=== PATIENT | female | born 1950 | race Caucasian/White ===

== ENCOUNTER 2022-08-26 07:29 | Outpatient (OUT) | payer MEDICARE, SELFPAY ==
--- NOTE | 2022-08-26 07:36 | MM_ITS ---
Patient: JUSTIN COLLINS Exam Date: 08/26/2022 : 1950 Gender:F Ordering : DR Jeremiah Arvizu . Admission #: [id number] Family : Order #: [id number] CLICK HERE TO VIEW EXAM RADIOLOGY REPORT PROCEDURE: MM TOMOSYNTHESIS SCREENING BI COMPARISON: MG MAMM SCREEN 3D SHANTE CAD, 05/19/2021. MG MAMM LT DIAG FU, 03/28/2020. MG MAMM SHANTE SCRN W CAD DIG, 06/12/2015. INDICATIONS: Screening Calculator Name NCI Breast Cancer Risk Assessment Tool 5 Year Breast Cancer Risk 1.80% Lifetime Breast Cancer Risk 5.10% Personal Breast Cancer No Personal Ovarian Cancer No Treatments None Family Cancers Mother with rectal cancer at age 85; Daughter with pancreatic/liver cancer at age 34. LOCATION: [facility] BREAST COMPOSITION: Scattered areas fibroglandular density. FINDINGS: DIAGNOSTIC CATEGORY 1--NEGATIVE. RIGHT BREAST: No significant suspicious finding. No significant change has occurred. LEFT BREAST: No significant suspicious finding. No significant change has occurred. RECOMMENDATIONS: ROUTINE MAMMOGRAM AND CLINICAL EVALUATION IN 12 MONTHS. PLEASE NOTE: A NORMAL MAMMOGRAM DOES NOT EXCLUDE THE POSSIBILITY OF BREAST CANCER. A CLINICALLY SUSPICIOUS PALPABLE LUMP SHOULD BE BIOPSIED. Dictated by: Joe Moon M.D. on 08/26/2022 at 16:20 Approved by: Joe Moon M.D. on 08/26/2022 at 16:23
== END 2022-08-26 07:30 ==
LOC: MAMMO 07:30
PROVIDERS: PCP Family Medicine; Visit Provider Family Medicine
DX: Z12.31 Encounter for screening mammogram for malignant neoplasm of breast (principal); Z80.0 Family history of malignant neoplasm of digestive organs
CPT/HCPCS: 77063; 77067

== ENCOUNTER 2022-08-26 07:37 | Outpatient (OUT) | payer MEDICARE, SELFPAY ==
--- NOTE | 2022-08-26 07:44 | CT_ITS ---
The [address] [address] Patient Name: JUSTIN COLLINS MRN: [id number] date: 1950 Sex: F Assigned Patient Location: CT Current Patient Location: [facility] Accession/Order Number: [id number] Exam Date: 08/26/2022 07:54 Report Date: 08/26/2022 08:20 At the request of: AMANDA KELLOGG Procedure: CT chest wo con PROCEDURE: CT chest wo con DATE: 08/26/2022 6:54 AM CDT COMPARISONS: 02/23/2022 CLINICAL INDICATION: 72 years Female MULTIPLE PULMONARY NODULES R91.8 TECHNIQUE: Axial images were obtained. Coronal and sagittal reformations were created. Individualized dose optimization technique was used for the procedure performed. FINDINGS: The thoracic aorta shows no evidence of aneurysm.There is some mild scattered calcification in the wall of the thoracic aorta. The heart size is within normal limits. There is no significant pericardial effusion or pericardial thickening. There is no significant coronary calcification identified. There is no mediastinal masses or adenopathy. There is no axillary adenopathy. The lungs are essentially clear without evidence of nodule, mass, or infiltrate. There is no evidence of pleural effusion or pneumothorax. No significant abnormalities are identified of the visualized osseous structures. No significant abnormalities are identified of the visualized portion of the upper abdomen. IMPRESSION: CT of the chest shows no significant abnormalities. The previously noted collection of 2 to 3 mm nodules versus atypical infiltrate/pneumonia within the anterior lateral base of the right upper lobe have resolved in the interval the lungs are now clear. Electronically authenticated by: NELY KNAPP Date: 08/26/2022 08:20
== END 2022-08-26 07:38 ==
LOC: CT 07:38
PROVIDERS: PCP Family Medicine; Visit Provider Internal Medicine
DX: Z12.31 Encounter for screening mammogram for malignant neoplasm of breast (principal); Z80.0 Family history of malignant neoplasm of digestive organs; R91.8 Other nonspecific abnormal finding of lung field
CPT/HCPCS: 71250; 77063; 77067

== ENCOUNTER 2022-11-07 12:35 | Emergency (ER) | payer MEDICARE, SELFPAY ==
[2022-11-07 12:38] VITALS: BP 166/82; RESP 20; BMI 51.6
--- NOTE | 2022-11-07 12:52 | ED.SKABFB1 ---
HPI - Skin/Abscess/Foreign Bdy General Chief complaint: Skin/Abscess/Foreign Body Stated complaint: L LEG/CUT WIDE OPEN/BLEEDING Time Seen by Provider: 11/07/22 12:46 Source: patient Mode of arrival: walk-in Limitations: no limitations History of Present Illness HPI narrative: this patient's here with a complaint of injuring/laceration to her left lower leg. She has chronic venous insufficiency and profound edema both her legs. She was walking by a box at her home and it causes laceration. She had her last tetanus shot two years ago. She does not have a fever or increasing redness. The bleeding has stopped. She normally wears nasir wraps at home to help control the peripheral edema. She sometimes takes her water pills but not always when she is going to be out around because of frequency of urination. She does not any chest pain or shortness of breath. Related Data Allergies Allergy/AdvReac Type Severity Reaction Status Date / Time Penicillins Allergy Intermediate Verified 11/07/22 12:44 Exam Narrative Exam Narrative: very pleasant female here no distress vital signs are noted. She has no respiratory difficulty breathing. Problem focused examination to the lower extremities Both legs have 4+ chronic edema she said they're no worse than usual. There is no indication of active cellulitis. She does have a skin flap type of laceration does partial thickness over the distal one third of her lower leg on the left side. There is no subcutaneous bleeding. Actually there is no bleeding at all at this time. She has no neurovascular deterioration distal to this laceration. Constitutional Vital Signs, click to edit/add: Last Vital Signs Resp 11/07/22 12:38 BP 166/82 H 11/07/22 12:38 O2 Del Method Room Air 11/07/22 12:38 Course Vital Signs Vital signs: Vital Signs Respiratory Rate 20 11/07/22 12:38 Blood Pressure 166/82 H 11/07/22 12:38 Oxygen Delivery Method Room Air 11/07/22 12:38 Respiratory Rate 11/07/22 12:38 Blood Pressure 166/82 H 11/07/22 12:38 Oxygen Delivery Method Room Air 11/07/22 12:38 MDM - Skin/Abscess/Foreign Bdy MDM Narrative Medical decision making narrative: patient with 4+ chronic leg edema with a partial-thickness laceration in the left lower leg. We will cleanse the area with pHisoHex, apply surgical site dressing and Steri-Strips. She is encouraged to keep her legs elevated more which she's not been doing and continued use the Nasir wrap. She should have this wound evaluated next week to make sure there is no secondary infection that would be developing. I do not believe she'll benefit from for prophylactic antibiotic at this time Discharge Plan Discharge Chief Complaint: Skin/Abscess/Foreign Body Clinical Impression: Laceration of leg Patient Disposition: Home, Self-Care Time of Disposition Decision: 12:55 Additional Instructions: ttried to elevate legs more especially today. Have her doctor reevaluate the wound next week. Return for any signs of infection Stand Alone Forms: Portal Instructions Referrals: Jeremiah Arvizu MD [Primary Care Provider] - 1 week
== END 2022-11-07 13:15 | disposition home or self-care (01) ==
PROVIDERS: Emergency Provider Emergency Medicine Emergency Medical Services; PCP Family Medicine
DX: S81.812A Laceration without foreign body, left lower leg, initial encounter (principal); I87.2 Venous insufficiency (chronic) (peripheral); W22.8XXA Striking against or struck by other objects, initial encounter
CPT/HCPCS: 99282

== ENCOUNTER 2022-11-24 10:31 | Outpatient (OUT) | payer MEDICARE, SELFPAY ==
[2022-11-24 11:02] LABS: Basophils Percent Auto 0.5 % (0.2-2.0); Eosinophils Absolute Auto 0.1 10^3/uL (0.0-0.7); Eosinophils Percent Auto 0.8 % (0.9-7.0); Hematocrit 37.9 % (36.0-48.0); Hemoglobin 11.9 g/dL (12.0-16.0); Immature Granulocytes Abs Auto 0.03 10^3/uL (0.00-0.03); Immature Granulocytes Pct Auto 0.5 % (0.0-0.5); Lymphocytes Absolute Auto 1.3 10^3/uL (1.2-3.8); Lymphocytes Percent Auto 19.3 % (20.5-60.0); Mean Corpuscular HGB Conc 31.4 g/dL (29.9-35.2); Mean Corpuscular Hemoglobin 29.5 pg (26.7-34.0); Mean Platelet Volume 9.6 fL (9.5-13.5); Monocytes Absolute Auto 0.6 10^3/uL (0.3-0.8); Monocytes Percent Auto 9.1 % (1.7-12.0); Neutrophils Absolute Auto 4.5 10^3/uL (1.4-6.5); Neutrophils Percent Auto 69.8 % (43.0-75.0); Platelet Count 216 10^3/uL (150-450); Red Blood Count 4.03 10^6/uL (4.20-5.40); Red Cell Distribution Width 15.4 % (11.0-15.0); White Blood Count 6.5 10^3/uL (4.0-11.0)
[2022-11-24 11:10] LABS: INR 1.02; Prothrombin Time 10.8 sec (9.0-11.6)
[2022-11-24 11:37] LABS: Anion Gap 9.5; BUN Creatinine Ratio 23.2; Calcium 9.3 mg/dL (8.5-10.1); Carbon Dioxide 26.6 mmol/L (21.0-32.0); Chloride 108 mmol/L (98-107); Estimated GFR (African America 30 (>=60); Estimated GFR (Non-African Ame 25 (>=60); Glucose 95 mg/dL (74-106); Potassium 5.1 mmol/L (3.5-5.1); Sodium 139 mmol/L (136-145)
== END 2022-11-24 10:32 | disposition home or self-care (01) ==
PROVIDERS: PCP Family Medicine
DX: I47.1 Supraventricular tachycardia (principal); M48.062 Spinal stenosis, lumbar region with neurogenic claudication
CPT/HCPCS: 36415; 80048; 85025; 85610; 87081

== ENCOUNTER 2022-12-30 12:57 | Outpatient (RCR) | payer MEDICARE, SELFPAY | END 2022-12-31 12:01 | disposition home or self-care (01) | LOC: PT 12:57 | PROVIDERS: PCP Family Medicine | DX: M48.062 Spinal stenosis, lumbar region with neurogenic claudication (principal) ==

== ENCOUNTER 2023-01-06 13:12 | Outpatient (OUT) | payer MEDICARE, SELFPAY ==
[2023-01-06 13:31] LABS: Basophils Percent Auto 0.5 % (0.2-2.0); Eosinophils Absolute Auto 0.1 10^3/uL (0.0-0.7); Eosinophils Percent Auto 1.3 % (0.9-7.0); Hematocrit 38.5 % (36.0-48.0); Hemoglobin 11.7 g/dL (12.0-16.0); Immature Granulocytes Abs Auto 0.04 10^3/uL (0.00-0.03); Immature Granulocytes Pct Auto 0.5 % (0.0-0.5); Lymphocytes Absolute Auto 1.3 10^3/uL (1.2-3.8); Lymphocytes Percent Auto 15.8 % (20.5-60.0); Mean Corpuscular HGB Conc 30.4 g/dL (29.9-35.2); Mean Corpuscular Hemoglobin 28.7 pg (26.7-34.0); Mean Corpuscular Volume 94.6 fL (81.0-99.0); Mean Platelet Volume 9.6 fL (9.5-13.5); Monocytes Absolute Auto 0.7 10^3/uL (0.3-0.8); Neutrophils Percent Auto 72.9 % (43.0-75.0); Platelet Count 220 10^3/uL (150-450); Red Blood Count 4.07 10^6/uL (4.20-5.40); Red Cell Distribution Width 13.8 % (11.0-15.0); White Blood Count 8.2 10^3/uL (4.0-11.0)
[2023-01-06 14:24] LABS: Anion Gap 12.4; Calcium 8.5 mg/dL (8.5-10.1); Carbon Dioxide 25.9 mmol/L (21.0-32.0); Chloride 109 mmol/L (98-107); Estimated GFR (African America 28 (>=60); Estimated GFR (Non-African Ame 23 (>=60); Glucose 89 mg/dL (74-106); Potassium 5.3 mmol/L (3.5-5.1); Sodium 142 mmol/L (136-145)
== END 2023-01-06 13:13 | disposition home or self-care (01) ==
LOC: LAB 13:12
PROVIDERS: PCP Family Medicine
DX: I49.5 Sick sinus syndrome (principal); I12.9 Hypertensive chronic kidney disease with stage 1 through stage 4 chronic kidney disease, or unspecified chronic kidney disease; N18.32 Chronic kidney disease, stage 3b; R10.9 Unspecified abdominal pain; R19.4 Change in bowel habit; K52.9 Noninfective gastroenteritis and colitis, unspecified; Z80.0 Family history of malignant neoplasm of digestive organs; Z83.79 Family history of other diseases of the digestive system; R19.7 Diarrhea, unspecified
CPT/HCPCS: 36415; 80048; 82042; 82043; 82570; 83993; 84100; 84156; 84443; 85025; 87045; 87046; 87177; 87209; 87427; 87493

== ENCOUNTER 2023-01-06 13:15 | Outpatient (OUT) | payer MEDICARE, SELFPAY ==
[2023-01-06 13:30] LABS: Creatinine Urine Random 175.12 mg/dL (20.00-300.00); Microalbumin Urine Random 4.5 mg/dL (<=30.0); Protein Creatinine Ratio Urine 0.16; Total Protein Urine Random 28.8 mg/dL (<=11.9)
[2023-01-06 14:40] LABS: Albumin Level 3.2 g/dL (3.4-5.0); Phosphorus 3.8 mg/dL (2.6-4.7); Thyroid Stimulating Hormone 0.048 uIU/mL (0.358-3.740)
== END 2023-01-06 13:16 | disposition home or self-care (01) ==
LOC: LAB 13:15
PROVIDERS: PCP Family Medicine
DX: I12.9 Hypertensive chronic kidney disease with stage 1 through stage 4 chronic kidney disease, or unspecified chronic kidney disease (principal); N18.32 Chronic kidney disease, stage 3b
CPT/HCPCS: 36415; 82042; 82043; 82570; 84100; 84156; 84443

== ENCOUNTER 2023-01-06 13:56 | Outpatient (REF) | payer MEDICARE, SELFPAY ==
[2023-01-07 15:06] LABS: C. Difficile PCR NEGATIVE (NEGATIVE)
[2023-01-10 18:08] LABS: Calprotectin, Fecal 40 ug/g (0-120)
[2023-01-18 19:07] LABS: Ova + Parasite Exam Final report (.)
== END 2023-01-06 13:57 | disposition home or self-care (01) ==
LOC: LAB 13:56
PROVIDERS: PCP Family Medicine
DX: R10.9 Unspecified abdominal pain (principal); R19.4 Change in bowel habit; K52.9 Noninfective gastroenteritis and colitis, unspecified; Z80.0 Family history of malignant neoplasm of digestive organs; Z83.79 Family history of other diseases of the digestive system; R19.7 Diarrhea, unspecified
CPT/HCPCS: 83993; 87045; 87177; 87209; 87493

== ENCOUNTER 2023-01-13 10:54 | Outpatient (OUT) | payer MEDICARE, SELFPAY ==
--- NOTE | 2023-01-13 10:58 | XR_ITS ---
The [address] [address] Patient Name: JUSTIN COLLINS MRN: [id number] date: 1950 Sex: F Assigned Patient Location: RAD Current Patient Location: RAD Accession/Order Number: [id number] Exam Date: 01/13/2023 11:07 Report Date: 01/13/2023 11:22 At the request of: DEBBIE BHATIA Procedure: XR chest 2V PROCEDURE: XR chest 2V DATE: 01/13/2023 10:07 AM CDT COMPARISONS: CT chest 08/26/2022 CLINICAL INDICATION: 72 years Female Symptomatic Bradycardia R00.1 FINDINGS: The cardiomediastinal silhouette and pulmonary vasculature are within normal limits. The lungs are clear. There is no evidence of pleural effusion or pneumothorax. Electronic cardiac device is now in place. It overlies the left chest with wires extending to overlie the heart. There is evidence of some mild thoracic spondylosis stable from 08/26/2022. XR/XR chest 2V IMPRESSION: Stable chest. Electronically authenticated by: NELY KNAPP Date: 01/13/2023 11:22
== END 2023-01-13 10:55 | disposition home or self-care (01) ==
LOC: RAD 01-14 08:55
PROVIDERS: PCP Family Medicine; Visit Provider Family Medicine
DX: R00.1 Bradycardia, unspecified (principal)
CPT/HCPCS: 71046

== ENCOUNTER 2023-01-19 11:34 | Observation (INO) | payer MEDICARE, SELFPAY ==
[2023-01-19] VITALS (34 sets, daily range): BP systolic 113–159; BP diastolic 72–87; PULSE 63–81; RESP 10–41; TEMP 36.5–36.6; O2SAT 93–97; BMI 52.1; BMI 51.6
--- NOTE | 2023-01-19 12:23 | ECG_ITS ---
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
--- NOTE | 2023-01-19 12:43 | ED_ITS ---
HPI - Dizziness General Chief Complaint: Dizziness Stated Complaint: GENERAL WEAKNESS/DIZZINESS Time Seen by Provider: 01/19/23 12:43 Source: patient Mode of arrival: Wheelchair History of Present Illness HPI Narrative: the patient's here complaining of feeling a lightheadedness with dizziness and like she might faint. She got smarting had usual breakfast. She then took a shower and she was completed she felt like she might faint. Just one week ago she got a pacemaker for documented bradycardia arrhythmia. She does not any shortness of breath or chest discomfort. She did not fall. She did not have diplopia with dysarthria dysphagia. She did not notice any focal weakness or sensory symptoms. She did not have headache. She says normally she gets these spells she just lays down takes a nap and they go away today spell was much wors e. The daughter was with her and after the one spell today her blood pressure was one fourteen systolic. They did not check her pulse but while she's here in the Emergency Room her pacemaker is working fine. Related Data Home Medications Medication Instructions Recorded Confirmed bumetanide 1 mg tablet 1 mg PO DAILY 01/19/23 01/19/23 carvedilol 25 mg tablet 12.5 mg PO BID 01/19/23 01/19/23 hydralazine 100 mg tablet 100 mg PO TID 01/19/23 01/19/23 isosorbide mononitrate 30 mg 30 mg PO DAILY 01/19/23 01/19/23 tablet,extended release 24 hr levothyroxine 100 mcg tablet 100 mcg PO DAILY 01/19/23 01/19/23 lisinopril 10 mg tablet 10 mg PO DAILY 01/19/23 01/19/23 lovastatin 20 mg tablet 20 mg PO DAILY 01/19/23 01/19/23 Allergies Allergy/AdvReac Type Severity Reaction Status Date / Time Penicillins Allergy Intermediate Verified 01/19/23 11:43 [facility] Social History Smoking status: Former smoker Exam Narrative Exam Narrative: tthis patient is awake alert oriented ?3 pleasant in no distress. She is on a property assessment monitor shows a paced rhythm. She has no hypoxemia and her oxygen saturations are normal. Constitutional HEENT shows no missed trauma or injury. Pupils are equally reactive bilaterally there is no nystagmus. There is no jugular vein distention. Heart rate and rhythm are normal with no murmur. Lungs are clear with no wheezes rales or rhonchi. Abdomen is benign with no pain or discomfort. Extremities show 3+ peripheral edema left lower leg with mild erythema and some venous stasis and losing right leg has 2-3+ but is not erythematous. Peripheral pulses are present. Neurological shows no focal neurological deficits or symptomatology. Constitutional Vital Signs, click to edit/add: Last Vital Signs Temp 97.8 F 01/19/23 11:38 Pulse 79 01/19/23 13:40 Resp 15 01/19/23 13:40 BP 133/78 01/19/23 13:30 Pulse Ox 96 01/19/23 13:40 O2 Del Method Room Air 01/19/23 11:38 Course Vital Signs Vital signs: Vital Signs Temperature 97.8 F 01/19/23 11:38 Pulse Rate 78 01/19/23 11:38 Respiratory Rate 20 01/19/23 11:38 Blood Pressure 113/73 01/19/23 11:38 Pulse Oximetry 96 01/19/23 11:38 Oxygen Delivery Method Room Air 01/19/23 11:38 Temperature 97.8 F 01/19/23 11:38 Pulse Rate 79 01/19/23 13:40 Respiratory Rate 15 01/19/23 13:40 Blood Pressure 133/78 01/19/23 13:30 Pulse Oximetry 96 01/19/23 13:40 Oxygen Delivery Method Room Air 01/19/23 11:38 MDM - Dizziness MDM Narrative Medical decision making narrative: ppatient remained stable while in the Emergency Room but had a severely concerning near syncopal episode at home today. She says she's had similar spells but today was the worst. She did not have any arrhythmia while here in the Emergency Room. Here a 12-lead EKG shows pacemaker functioning is normal. She did not have any hypotension. Laboratory tests did not show any acute abnormalities. She's not been compliant with her stockings and she does have a lot of peripheral edema. I felt would be best to keep her on a property assessment monitor to see if there is any deterioration of her pacemaker function. She was discus sed with the hospitalist Lab Data Labs: Lab Results 01/19/23 Range/Units 13:17 WBC 8.2 (4.0-11.0) 10^3/uL RBC 3.96 L (4.20-5.40) 10^6/uL Hgb 11.5 L (12.0-16.0) g/dL Hct 38.0 (36.0-48.0) % MCV 96.0 (81.0-99.0) fL MCH 29.0 (26.7-34.0) pg MCHC 30.3 (29.9-35.2) g/dL RDW 13.9 (11.0-15.0) % Plt Count 200 (150-450) 10^3/uL MPV 9.8 (9.5-13.5) fL Neut % (Auto) 74.1 (43.0-75.0) % Lymph % (Auto) 14.1 L (20.5-60.0) % [place] % (Auto) 9.4 (1.7-12.0) % Eos % (Auto) 1.5 (0.9-7.0) % Baso % (Auto) 0.5 (0.2-2.0) % Neut # (Auto) 6.1 (1.4-6.5) 10^3/uL Lymph # (Auto) 1.2 (1.2-3.8) 10^3/uL [place] # (Auto) 0.8 (0.3-0.8) 10^3/uL Eos # (Auto) 0.1 (0.0-0.7) 10^3/uL Baso # (Auto) 0.0 (0.0-0.1) 10^3/uL Abs Immat Gran (auto) 0.03 (0.00-0.03) 10^3/uL Imm/Tot Granulo (auto) 0.4 (0.0-0.5) % Sodium 143 (136-145) mmol/L Potassium 4.9 (3.5-5.1) mmol/L Chloride 108 H (98-107) mmol/L Carbon Dioxide 28.4 (21.0-32.0) mmol/L Anion Gap 11.5 BUN 45.0 H (7.0-18.0) mg/dL Creatinine 1.83 H (0.55-1.02) mg/dL Est GFR ( Amer) 33 L (>=60) Est GFR (Non-Af Amer) 27 L (>=60) BUN/Creatinine Ratio 24.6 Glucose 96 (74-106) mg/dL Calcium 8.6 (8.5-10.1) mg/dL Total Bilirubin 0.4 (0.2-1.0) mg/dL AST 9 L (15-37) U/L ALT 14 (14-59) U/L Alkaline Phosphatase 84 (46-116) U/L Troponin I High Sens 8.9 (4.0-51.3) pg/mL Total Protein 6.5 (6.4-8.2) g/dL Albumin 3.0 L (3.4-5.0) g/dL Globulin 3.5 g/dL Albumin/Globulin Ratio 0.9 Discharge Plan Discharge Chief Complaint: Dizziness Clinical Impression: Near syncope Patient Disposition: Admitted as Observation Time of Disposition Decision: 14:30 Prescriptions / Home Meds: No Action bumetanide 1 mg tablet 1 mg PO DAILY carvedilol 25 mg tablet 12.5 mg PO BID hydralazine 100 mg tablet 100 mg PO TID isosorbide mononitrate 30 mg tablet extended release 24 hr 30 mg PO DAILY levothyroxine 100 mcg tablet 100 mcg PO DAILY lisinopril 10 mg tablet 10 mg PO DAILY lovastatin 20 mg tablet 20 mg PO DAILY Referrals: Jeremiah Arvizu MD [Primary Care Provider] - 1 week
--- NOTE | 2023-01-19 13:08 | XR_ITS ---
The [address] [address] Patient Name: JUSTIN COLLINS MRN: [id number] date: 1950 Sex: F Assigned Patient Location: ER Current Patient Location: ER Accession/Order Number: [id number] Exam Date: 01/19/2023 13:00 Report Date: 01/19/2023 13:16 At the request of: ASIF HOFFMAN Procedure: XR chest 1V EXAMINATION: XR chest 1V 01/19/2023 10:15 AM PST HISTORY: pacemaker TECHNIQUE: Single frontal view of the chest acquired. COMPARISONS: Chest x-ray 01/13/2023. FINDINGS: Lines/tubes/other: Cardiac pulse generator and leads are similar. Heart and mediastinum: Stable. Bones: No acute osseous abnormality. Lungs: The bases are obscured by overlying soft tissue. No pulmonary opacity in the unobscured portions of the lungs. Pleura: There is no significant pleural effusion or pneumothorax. Other: None. XR/XR chest 1V IMPRESSION: The bases are obscured by soft tissue. No acute cardiopulmonary abnormality elsewhere. Electronically authenticated by: LETICIA BYRD Date: 01/19/2023 13:16
[2023-01-19 13:27] LABS: Basophils Percent Auto 0.5 % (0.2-2.0); Eosinophils Absolute Auto 0.1 10^3/uL (0.0-0.7); Eosinophils Percent Auto 1.5 % (0.9-7.0); Hemoglobin 11.5 g/dL (12.0-16.0); Immature Granulocytes Abs Auto 0.03 10^3/uL (0.00-0.03); Immature Granulocytes Pct Auto 0.4 % (0.0-0.5); Lymphocytes Absolute Auto 1.2 10^3/uL (1.2-3.8); Lymphocytes Percent Auto 14.1 % (20.5-60.0); Mean Corpuscular HGB Conc 30.3 g/dL (29.9-35.2); Mean Platelet Volume 9.8 fL (9.5-13.5); Monocytes Absolute Auto 0.8 10^3/uL (0.3-0.8); Monocytes Percent Auto 9.4 % (1.7-12.0); Neutrophils Absolute Auto 6.1 10^3/uL (1.4-6.5); Neutrophils Percent Auto 74.1 % (43.0-75.0); Platelet Count 200 10^3/uL (150-450); Red Blood Count 3.96 10^6/uL (4.20-5.40); Red Cell Distribution Width 13.9 % (11.0-15.0); White Blood Count 8.2 10^3/uL (4.0-11.0)
[2023-01-19 13:42] LABS: Alanine Aminotransferase 14 U/L (14-59); Albumin Globulin Ratio 0.9; Alkaline Phosphatase 84 U/L (46-116); Anion Gap 11.5; Aspartate Amino Transferase 9 U/L (15-37); BUN Creatinine Ratio 24.6; Bilirubin Total 0.4 mg/dL (0.2-1.0); Calcium 8.6 mg/dL (8.5-10.1); Carbon Dioxide 28.4 mmol/L (21.0-32.0); Chloride 108 mmol/L (98-107); Estimated GFR (African America 33 (>=60); Estimated GFR (Non-African Ame 27 (>=60); Globulin 3.5 g/dL; Glucose 96 mg/dL (74-106); Potassium 4.9 mmol/L (3.5-5.1); Sodium 143 mmol/L (136-145); Total Protein 6.5 g/dL (6.4-8.2); Troponin I High Sensitivity 8.9 pg/mL (4.0-51.3)
[2023-01-19] MEDS: LACTATED RINGER'S SOLUTION 1,000 ML 125 ML IV (16:43)
[2023-01-19] MEDS: ATORVASTATIN CALCIUM 10 MG TABLET PO (22:17)
[2023-01-19] MEDS: CARVEDILOL 25 MG TABLET 12.5 MG PO (22:17)
[2023-01-19] MEDS: HYDRALAZINE HCL 50 MG TABLET 100 MG PO (22:18)
[2023-01-20] VITALS (10 sets, daily range): BP systolic 156–180; BP diastolic 82–84; PULSE 64–78; RESP 16–18; TEMP 36.6; O2SAT 94–97
[2023-01-20] MEDS: LACTATED RINGER'S SOLUTION 1,000 ML 125 ML IV (00:54)
[2023-01-20 05:38] LABS: Basophils Percent Auto 0.6 % (0.2-2.0); Eosinophils Absolute Auto 0.1 10^3/uL (0.0-0.7); Eosinophils Percent Auto 1.7 % (0.9-7.0); Hematocrit 34.2 % (36.0-48.0); Hemoglobin 10.4 g/dL (12.0-16.0); Immature Granulocytes Abs Auto 0.03 10^3/uL (0.00-0.03); Immature Granulocytes Pct Auto 0.4 % (0.0-0.5); Lymphocytes Absolute Auto 1.3 10^3/uL (1.2-3.8); Lymphocytes Percent Auto 18.3 % (20.5-60.0); Mean Corpuscular HGB Conc 30.4 g/dL (29.9-35.2); Mean Corpuscular Hemoglobin 29.5 pg (26.7-34.0); Mean Corpuscular Volume 96.9 fL (81.0-99.0); Mean Platelet Volume 10.2 fL (9.5-13.5); Monocytes Absolute Auto 0.9 10^3/uL (0.3-0.8); Monocytes Percent Auto 12.6 % (1.7-12.0); Neutrophils Absolute Auto 4.6 10^3/uL (1.4-6.5); Neutrophils Percent Auto 66.4 % (43.0-75.0); Platelet Count 167 10^3/uL (150-450); Red Blood Count 3.53 10^6/uL (4.20-5.40); Red Cell Distribution Width 13.9 % (11.0-15.0)
[2023-01-20] MEDS: HYDRALAZINE HCL 50 MG TABLET 100 MG PO (05:44)
[2023-01-20] MEDS: LEVOTHYROXINE SODIUM 100 MCG TABLET PO (05:44)
[2023-01-20 06:05] LABS: Alanine Aminotransferase 13 U/L (14-59); Albumin Globulin Ratio 0.8; Albumin Level 2.7 g/dL (3.4-5.0); Alkaline Phosphatase 71 U/L (46-116); Anion Gap 10.4; Aspartate Amino Transferase 11 U/L (15-37); BUN Creatinine Ratio 28.2; Bilirubin Total 0.3 mg/dL (0.2-1.0); Calcium 8.9 mg/dL (8.5-10.1); Carbon Dioxide 24.7 mmol/L (21.0-32.0); Chloride 109 mmol/L (98-107); Estimated GFR (African America 33 (>=60); Estimated GFR (Non-African Ame 28 (>=60); Globulin 3.4 g/dL; Glucose 112 mg/dL (74-106); Potassium 5.1 mmol/L (3.5-5.1); Sodium 139 mmol/L (136-145); Total Protein 6.1 g/dL (6.4-8.2)
--- NOTE | 2023-01-20 07:36 | P.HP_ITS ---
H&P: HPI History of Present Illness Chief complaint: GENERAL WEAKNESS/DIZZINESS Narrative: Patient admitted with increasing weakness. He is syncope. She did not pass out, no chest pain or shortness of breath this felt extreme weakness like she was going to pass out. No vertigo. In ER evaluation was unremarkable with history and history of recent pacemaker placement patient was admitted to observation Review of Systems ROS Status of ROS 10 or more systems reviewed and unremarkable except as noted in history and below PFSH [facility] Medical History (Updated 01/19/23 @ 16:16 by Hallie Arceo) COPD (chronic obstructive pulmonary disease) ?J44.9 - Chronic obstructive pulmonary disease, unspecified (ICD-10) Hypertension ?I10 - Essential (primary) hypertension (ICD-10) Pacemaker ?Z95.0 - Presence of cardiac pacemaker (ICD-10) Stage 3a chronic kidney disease (CKD) ?N18.31 - Chronic kidney disease, stage 3a (ICD-10) Surgical History (Updated 01/19/23 @ 16:17 by Hallie Arceo) H/O: hysterectomy ?Z90.710 - Acquired absence of both cervix and uterus (ICD-10) History of lumbar surgery ?Z98.890 - Other specified postprocedural states (ICD-10) Status post left foot surgery ?Z98.890 - Other specified postprocedural states (ICD-10) Family History (Updated 01/19/23 @ 16:13 by Hallie Arceo) Daughter Family history of cancer Father Family history of cancer Family history of hypertension Mother Family history of cancer Family history of CHF (congestive heart failure) Family history of COPD (chronic obstructive pulmonary disease) Family history of myocardial infarction Social History (Updated 01/19/23 @ 16:12 by Hallie Arceo) Within the past year, how often did you have six or more drinks on one occasion: less than monthly Smoking status: Former smoker Non-prescribed substance use: over the counter (eg: immodium) Non-prescribed substance use details: kirsten vázquez, Quique 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 Known occupational exposures/hazards: No Highest level of school completed/degree received: Associate degree: occupational, technical, vocational program Do you want help with school or training: No Are you now , , , , never or living with a partner: In a typical week, how many times do you talk on the telephone with family, friends, or neighbors: 3 or more times per week How often do you get together with friends or relatives: 3 or more times per week How often do you attend mormon or sikhism services: never Do you belong to any clubs or organizations such as mormon groups unions, fraternal or athletic groups, or school groups: yes Total score: 2 Score interpretation: A score of greater than or equal to 2 indicates the lowest level of social isolation. Little interest or pleasure in doing things: not at all Feeling down, depressed, or hopeless: not at all Feel stressed/tense/nervous/anxious/difficulty sleeping: not at all Due to disability, difficulty making decisions: No Do you think of yourself as: straight/heterosexual Gender Identity: female Meds Home Medications and Allergies Home Medications Medication Instructions Recorded Confirmed Type bumetanide 1 mg tablet 1 mg PO DAILY PRN edema 01/19/23 01/19/23 History carvedilol 25 mg tablet 12.5 mg PO BID 01/19/23 01/19/23 History diclofenac sodium 75 mg 75 mg PO BID 01/19/23 01/19/23 History tablet,delayed release doxycycline monohydrate 100 mg 100 mg PO BID 01/19/23 01/19/23 History capsule hydralazine 100 mg tablet 100 mg PO TID 01/19/23 01/19/23 History isosorbide mononitrate 30 mg 30 mg PO DAILY 01/19/23 01/19/23 History tablet,extended release 24 hr levothyroxine 100 mcg tablet 100 mcg PO DAILY 01/19/23 01/19/23 History liothyronine 25 mcg tablet 25 mcg PO DAILY 01/19/23 01/19/23 History (Cytomel) lisinopril 10 mg tablet 10 mg PO DAILY 01/19/23 01/19/23 History lovastatin 20 mg tablet 20 mg PO DAILY 01/19/23 01/19/23 History revefenacin 175 mcg/3 mL solution 175 mcg inhalation DAILY 01/19/23 01/19/23 History for nebulization (Yupelri) Allergies Allergy/AdvReac Type Severity Reaction Status Date / Time Penicillins Allergy Intermediate Verified 01/19/23 11:43 Exam Constitutional Vital Signs, click to edit/add: Last Vital Signs Temp 98 F 01/20/23 05:30 Pulse 78 01/20/23 06:03 Resp 18 01/20/23 05:30 BP 156/82 H 01/20/23 05:44 Pulse Ox 94 L 01/20/23 05:30 O2 Del Method Room Air 01/20/23 05:30 Documenting provider has reviewed patient's vital signs: yes Common normals: no apparent distress [facility] Common normals: normocephalic and head/scalp atraumatic Chest Common normals: inspection of chest normal Respiratory Common normals: normal respiratory effort and no retractions Cardio Common normals: regular rate, regular rhythm and no murmurs GI Common normals: Normal to inspection, nondistended, normoactive bowel sounds present Extremity Common normals: normal to inspection Neuro Common normals: oriented x3 and CN's II-XII intact bilaterally Results Labs Labs: Short CBC 01/19/23 01/20/23 Range/Units 13:17 04:40 WBC 8.2 7.0 (4.0-11.0) 10^3/uL Hgb 11.5 L 10.4 L (12.0-16.0) g/dL Hct 38.0 34.2 L (36.0-48.0) % Plt Count 200 167 (150-450) 10^3/uL BMP 01/19/23 01/20/23 13:17 04:40 Sodium 143 139 Potassium 4.9 5.1 Chloride 108 H 109 H Carbon Dioxide 28.4 24.7 BUN 45.0 H 51.0 H Creatinine 1.83 H 1.81 H Glucose 96 112 H Calcium 8.6 8.9 Liver Function 01/19/23 01/20/23 Range/Units 13:17 04:40 Total Bilirubin 0.4 0.3 (0.2-1.0) mg/dL AST 9 L 11 L (15-37) U/L ALT 14 13 L (14-59) U/L Alkaline Phosphatase 84 71 (46-116) U/L Albumin 3.0 L 2.7 L (3.4-5.0) g/dL Assessment and Plan Assessment and Plan (1) Near syncope: (2) Hypertension: (3) Pacemaker: (4) Stage 3a chronic kidney disease (CKD): Plan Labile hypertension-blood pressure low at home but elevated here, patient's had no further episodes of near syncope. She has had some heart rates less than 70 noted on telemetry, she states her pacemaker is set at 70. She has a visit with cardiology later this morning. Patient feels back to her normal self. Near syncope could be related to pacemaker malfunction versus hypotension. Seeing ca rdiology today medications can be adjusted further. Discharged home in improving condition. Medications see list. Follow-up with cardiology this morning Anemia-chronic secondary to chronic kidney disease stage III. Is down somewhat today but likely related to fluids given. Will monitor as an outpatient Mild to moderate malnutrition-encouraged protein intake with low albumin
--- NOTE | 2023-01-20 08:06 | RESP.RT ---
Placed on room air
[2023-01-20] MEDS: DOXYCYCLINE MONOHYDRATE 100 MG CAPSULE PO (08:50)
[2023-01-20] MEDS: CARVEDILOL 25 MG TABLET 12.5 MG PO (08:50)
[2023-01-20] MEDS: DICLOFENAC SODIUM 25 MG TABLET.DR 75 MG PO (08:51)
[2023-01-20] MEDS: LISINOPRIL 10 MG TABLET PO (08:51)
[2023-01-20] MEDS: ISOSORBIDE MONONITRATE 30 MG TAB.ER.24H PO (08:51)
[2023-01-20] MEDS: LIOTHYRONINE SODIUM 25 MCG TABLET PO (08:54)
--- NOTE | 2023-01-20 08:56 | PC.NURSE ---
HTN- Patient was given morning BP medications. Patient received Hydralazine at 0645. She denies any s/s of pain or discomfort regarding the HTN. I am transporting her via wheelchair to her cardio appointment at this time. She is being discharged
[2023-01-20 09:14] LABS: Magnesium 1.7 mg/dL (1.8-2.4)
--- NOTE | 2023-01-21 14:01 | CM.DCFOLLOWU ---
Person spoke with: Vero How are you feeling? I am feeling good How is your pain? No pain Did you understand your discharge instructions? yes Do you have any questions about your discharge instructions? no Were you given any prescriptions at discharge? yes Were you able to get your prescriptions filled? yes Do you understand how to take your medications as ordered? Sure do Do you have any questions about your follow up appointment and do you plan to keep your follow up appointment? Follwo up with the Recruiting Operations Consultant next week. Is there anything else that you would like to discuss? Nope. I'm doing good. Questions/Comments/Concerns/Other:
== END 2023-01-20 09:01 | disposition home or self-care (01) ==
LOC: ER 14:30 → MS 14:49
PROVIDERS: Internal Medicine; Admitting Provider Family Medicine; Emergency Provider Emergency Medicine Emergency Medical Services; PCP Family Medicine; Visit Provider Family Medicine
DX: R55 Syncope and collapse (principal); I12.9 Hypertensive chronic kidney disease with stage 1 through stage 4 chronic kidney disease, or unspecified chronic kidney disease; N18.31 Chronic kidney disease, stage 3a; D63.1 Anemia in chronic kidney disease; E44.0 Moderate protein-calorie malnutrition; J44.9 Chronic obstructive pulmonary disease, unspecified; Z95.0 Presence of cardiac pacemaker; Z90.710 Acquired absence of both cervix and uterus; Z98.890 Other specified postprocedural states; Z87.891 Personal history of nicotine dependence; Z79.899 Other long term (current) drug therapy; Z79.890 Hormone replacement therapy; Z68.43 Body mass index [BMI] 50.0-59.9, adult
CPT/HCPCS: 36415; 71045; 80053; 83735; 84436; 84481; 84484; 85025; 93005; 94761; 96360; 96361; 99285; G0378

== ENCOUNTER 2023-04-22 08:28 | Outpatient (OUT) | payer MEDICARE, SELFPAY ==
--- OUTSIDE RECORDS SUMMARY | 2023-04-22 08:35 | XMS_ITS | CCD ---
Author Name Unknown Address [address] [facility] [place] [address] Organization [facility] Care Team Providers Care Orientation And Mobility Specialist Name Role Phone PHYSICIAN, DEFAULT Unavailable Unavailable PHYSICIAN, DEFAULT Unavailable Unavailable DEBBIE BHATIA Unavailable Unavailable SRIRAM ., DR LEWIS Consulting Unavailable HOY ., DR LEWIS Attending Unavailable HOY ., DR LEWIS Primary Care Unavailable HOY ., DR LEWIS Admitting Unavailable ORANGE PARK, DR RAJI Odonnell Consulting Unavailable HOY ., DR LEWIS Consulting Unavailable HOY ., DR LEWIS Attending Unavailable HOY ., DR LEWIS Primary Care Unavailable HOY ., DR LEWIS Admitting Unavailable HOY ., DR LEWIS Primary Care Unavailable HOY ., DR LEWIS Consulting Unavailable CAPO HURTADO Admitting Unavailable CAPO HURTADO Attending Unavailable SRIRAM ., DR LEWIS Primary Care Unavailable Ambar Maya Consulting Unavailable CAPO HURTADO Attending Unavailable JAMES HURTADOSON Admitting Unavailable CAPO HURTADO Consulting Unavailable SUNDAR IRVIN Admitting Unavailable HOLula .DR LEWIS Primary Care Unavailable IRVIN KWOK Consulting Unavailable IRVIN KWOK Attending Unavailable IRVIN KWOK Consulting Unavailable SRIRAM .DR LEWIS Primary Care Unavailable IRVIN KWOK Attending Unavailable IRVIN KWOK Admitting Unavailable HOY .DR LEWIS Primary Care Unavailable SAMSA ., AMANDA Attending Unavailable SAMSA ., AMANDA Admitting Unavailable SAMSA ., AMANDA Consulting Unavailable SRIRAM .DR LEWIS Primary Care Unavailable JULIANNE .EUN Admitting Unavailable JULIANNE .EUN Attending Unavailable SOMMER POLLOCK Consulting Unavailable SRIRAM ., DR LEWIS Primary Care Unavailable MISC, DR LOPEZ Admitting Unavailable MISC, DR LOPEZ Attending Unavailable SRIRAM ., DR LEWIS Primary Care Unavailable SAMSA ., AMANDA Attending Unavailable SAMSA ., AMANDA Admitting Unavailable Ambar Maya Consulting Unavailable SAMSA ., AMANDA Consulting Unavailable HOY ., DR LEWIS Primary Care Unavailable ELTAHAWY, DR RAMIREZ Attending Unavailable ELTAHAWY, DR RAMIREZ Admitting Unavailable ELTAHAWY, DR RAMIREZ Consulting Unavailable HOY ., DR LEWIS Consulting Unavailable HOY ., DR LEWIS Primary Care Unavailable HOY ., DR LEWIS Admitting Unavailable HOY ., DR LEWIS Attending Unavailable HOY ., DR LEWIS Consulting Unavailable HOY ., DR LEWIS Primary Care Unavailable HOY ., DR LEWIS Attending Unavailable HOY ., DR LEWIS Admitting Unavailable HOY ., DR LEWIS Consulting Unavailable HOY ., DR LEWIS Attending Unavailable HOY ., DR LEWIS Primary Care Unavailable HOY ., DR LEWIS Admitting Unavailable ORANGE PARK, DR RAJI Odonnell Consulting Unavailable Desmond ANDERS Attending Unavailable JOSE ANGEL MEEHAN Attending Unavailable JOSE ANGEL MEEHAN Admitting Unavailable KARLA, JENNIFER Attending Unavailable KARLA, JENNIFER Admitting Unavailable SHEFALIJOSE ANGEL MORGAN Attending Unavailable KARLA, JENNIFER Referring Unavailable JOSE ANGEL MEEHAN Attending Unavailable JOSE ANGEL MEEHAN Admitting Unavailable JOSE ANGEL MEEHAN Referring Unavailable IRVIN KWOK Attending Unavailable IRVIN KWOK Referring Unavailable KARLA, JENNIFER Referring Unavailable TIAN FORD Attending Unavailable JOSE ANGEL MEEHAN Attending Unavailable JOSE ANGEL MEEHAN Attending Unavailable TIAN FORD Attending Unavailable IRVIN KWOK Referring Unavailable MALENFANTNATALIA Referring Unavaila ble MALENFANTNATALIA Referring Unavaila ble NAWRAS, DARIO Attending Unavailable TIAN FORD Referring Unavailable JOSE ANGEL MEEHAN Referring Unavailable JOSE ANGEL MEEHAN Referring Unavailable DALTON, COLLETTE Attending Unavailable IRVIN WKOK Attending Unavailable ELSRIKANTH BROWNAB Attending Unavailable JOSE ANGEL MEEHAN Attending Unavailable IRVIN KWOK Attending Unavailable CINTIA JACOBO Attending Unavailable JOSE ANGEL MEEHAN Attending Unavailable MALENFANTNATALIA Attending Unavaila ble AKRAANNE MARIE, TIAN Attending Unavailable DEBBIE BHATIA Referring Unavailable MALENFANTNATALIA Attending Unavaila ble JOSE ANGEL MEEHAN Attending Unavailable AKRAWI, SAMER Attending Unavailable JOSE ANGEL MEEHAN Attending Unavailable JOSE ANGEL MEEHAN Attending Unavailable JOSE ANGEL MEEHAN Referring Unavailable TIAN FORD Referring Unavailable JOSE ANGEL MEEHAN Referring Unavailable JOSE ANGEL MEEHAN Referring Unavailable JOSE ANGEL MEEHAN Attending Unavailable JENNIFER BULLOCK Referring Unavailable IRVIN KWOK Attending Unavailable IRVIN KWOK Admitting Unavailable Allergies Allergy Classification Reported Allergen(s) Allergy Type Date of Onset Reaction(s) Facility (4 sources) Penicillins; Translations: [PENICILLINS] Drug allergy (disorder) 09-28-2014 [facility] Repository Problems Active Problems Problem Classification Problem Date Documented Date Episodic/Chronic Cardiac dysrhythmias (8 sources) Supraventricular tachycardia; Translations: [Sick sinus syndrome] Onset: 07-17-2022 Chronic Chronic kidney disease (2 sources) Chronic kidney disease, stage 4 (severe); Translations: [Chronic kidney disease, stage 4 (severe)] Onset: 09-08-2022 Chronic Chronic kidney disease (2 sources) Chronic kidney disease; Translations: [Chronic kidney disease, stage 3b] Onset: 05-19-2022 Conduction disorders (2 sources) Presence of cardiac pacemaker; Translations: [Presence of cardiac pacemaker] Onset: 01-12-2023 Chronic Congestive heart failure; nonhypertensive (3 sources) Acute combined systolic (congestive) and diastolic (congestive) heart failure; Translations: [Unspecified diastolic (congestive) heart failure] Onset: 08-14-2021 Chronic Coronary atherosclerosis and other heart disease (2 sources) 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; Translations: [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] Onset: 10-27-2022 Chronic Disorders of lipid metabolism (2 sources) Hyperlipidemia, unspecified; Translations: [Pure hypercholesterolemia, unspecified] Onset: 08-14-2021 Chronic Esophageal disorders (2 sources) Gastro-esophageal reflux disease without esophagitis; Translations: [Gastro-esophageal reflux disease without esophagitis] Onset: 01-05-2023 Chronic Essential hypertension (2 sources) Essential (primary) hypertension; Translations: [Essential (primary) hypertension] Onset: 11-28-2021 Chronic Gastritis and duodenitis (2 sources) Duodenitis without bleeding; Translations: [Duodenitis without bleeding] Onset: 02-09-2023 Episodic Hypertension with complications and secondary hypertension (1 source) Hypertensive heart disease with heart failure; Translations: [HTN HEART DISEASE W/HEART FAIL] Onset: 01-26-2022 Chronic Osteoporosis (6 sources) Age-related osteoporosis without current pathological fracture; Translations: [Other osteoporosis without current pathological fracture] Onset: 01-21-2022 Chronic Other diseases of veins and lymphatics (1 source) Lymphedema, not elsewhere classified; Translations: [LYMPHEDEMA NOT ELSEWHERE CLASSIFIED] Onset: 01-19-2022 Chronic Residual codes; unclassified (2 sources) Sleep apnea, unspecified; Translations: [Sleep apnea, unspecified] Onset: 09-08-2022 Chronic Spondylosis; intervertebral disc disorders; other back problems (2 sources) Spondylosis without myelopathy or radiculopathy, lumbosacral region; Translations: [Spondylosis without myelopathy or radiculopathy, lumbosacral region] Onset: 01-30-2022 Chronic Thyroid disorders (1 source) Hypothyroidism, unspecified; Translations: [HYPOTHYROIDISM UNSPECIFIED] Onset: 08-14-2021 Chronic Unclassified (3 sources) CONTACT W/AND (SUSP) EXPOS COVID-19; Translations: [CONTACT W/AND (SUSP) EXPOS COVID-19] Onset: 10-29-2021 Unclassified (1 source) COUGH, UNSPECIFIED; Translations: [COUGH, UNSPECIFIED] Onset: 10-29-2021 Unclassified (1 source) Other ventricular tachycardia; Translations: [Other ventricular tachycardia] Onset: 11-30-2022 Unclassified (1 source) Ventricular tachycardia, unspecified; Translations: [Ventricular tachycardia, unspecified] Onset: 07-14-2022 Unclassified (1 source) Low back pain, unspecified; Translations: [Low back pain, unspecified] Onset: 05-11-2022 Past or Other Problems Problem Classification Problem Date Documented Da te Episodic/Chronic Abdominal pain (2 sources) Unspecified abdominal pain; Translations: [Unspecified abdominal pain] Onset: 01-05-2023 Episodic Cardiac dysrhythmias (7 sources) Palpitations; Translations: [Bradycardia, unspecified] Onset: 01-14-2022 Episodic Deficiency and other anemia (1 source) Anemia, unspecified; Translations: [ANEMIA UNSPECIFIED] Onset: 01-19-2022 Episodic E Codes: Cut/pierceb (1 source) Contact with other sharp object(s), not elsewhere classified, initial encounter; Translations: [[facility] SH[facility] OB NOT ELSW CLASS INI] Onset: 08-14-2021 Episodic Noninfectious gastroenteritis (2 sources) Noninfective gastroenteritis and colitis, unspecified; Translations: [Noninfective gastroenteritis and colitis, unspecified] Onset: 01-05-2023 Episodic Nonspecific chest pain (1 source) Chest pain, unspecified; Translations: [CHEST PAIN UNSPECIFIED] Onset: 01-29-2022 Episodic Open wounds of extremities (4 sources) Laceration without foreign body, right lower leg, initial encounter; Translations: [LACERATION W/O FB RT LOW LEG INIT] Onset: 08-12-2021 Episodic Other aftercare (1 source) Other watermaster (current) drug therapy; Translations: [[facility] CURRENT DRUG THERAPY] Onset: 08-14-2021 Episodic Other and unspecified benign neoplasm (1 source) Personal history of colonic polyps; Translations: [PERSONAL HISTORY OF COLONIC POLYPS] Onset: 08-14-2021 Episodic Other bone disease and musculoskeletal deformities (2 sources) Other specified disorders of bone density and structure, other site; Translations: [Other specified disorders of bone density and structure, other site] Onset: 07-28-2022 Episodic Other circulatory disease (1 source) Other specified symptoms and signs involving the circulatory and respiratory systems; Translations: [[facility] SPEC SX SIGNS INVLV CIRC RS] Onset: 10-29-2021 Episodic Other diseases of veins and lymphatics (1 source) Venous insufficiency (chronic) (peripheral); Translations: [VENOUS INSUFF CHRONIC PERIPHERAL] Onset: 01-19-2022 Episodic Other gastrointestinal disorders (2 sources) Change in bowel habit; Translations: [Change in bowel habit] Onset: 01-05-2023 Episodic Other lower respiratory disease (6 sources) Shortness of breath; Translations: [SHORTNESS OF BREATH] Onset: 11-28-2021 Episodic Other screening for suspected conditions (not mental disorders or infectious disease) (6 sources) Encounter for screening, unspecified; Translations: [Other specified abnormal findings of blood chemistry] Onset: 12-26-2022 Episodic Residual codes; unclassified (6 sources) Edema, unspecified; Translations: [EDEMA UNSPECIFIED] Onset: 11-28-2021 Episodic Residual codes; unclassified (1 source) Localized edema; Translations: [LOCALIZED EDEMA] Onset: 01-19-2022 Episodic Residual codes; unclassified (1 source) Acquired absence of both cervix and uterus; Translations: [ACQUIRED ABSENCE BOTH CERVIX AND UTERUS] Onset: 08-14-2021 Episodic Residual codes; unclassified (2 sources) Family history of malignant neoplasm of digestive organs; Translations: [Family history of malignant neoplasm of digestive organs] Onset: 01-05-2023 Episodic Residual codes; unclassified (2 sources) Family history of other diseases of the digestive system; Translations: [Family history of other diseases of the digestive system] Onset: 01-05-2023 Episodic Screening and history of mental health and substance abuse codes (5 sources) Personal history of nicotine dependence; Translations: [PERSONAL HISTORY OF NICOTINE DEPEND] Onset: 08-14-2021 Episodic Spondylosis; intervertebral disc disorders; other back problems (13 sources) Spinal stenosis, lumbar region with neurogenic claudication; Translations: [Radiculopathy, lumbar region] Onset: 10-09-2021 Episodic Unclassified (1 source) CONTACT W/AND (SUSP) EXPOS COVID-19; Translations: [CONTACT W/AND (SUSP) EXPOS COVID-19] Onset: 10-28-2021 Unclassified (1 source) Other ventricular tachycardia; Translations: [Other ventricular tachycardia] Onset: 01-01-2023 Unclassified (1 source) Ventricular tachycardia, unspecified; Translations: [Ventricular tachycardia, unspecified] Onset: 07-22-2022 Unclassified (1 source) Low back pain, unspecified; Translations: [Low back pain, unspecified] Onset: 05-11-2022 Results Test Name Value Interpretation Reference Range Facility 36on 04-19-2023 36 Vero has called, stating she is not feeling well, in Re: recurrent diarrhea /not feeling well and she mention a breathing test they may not work, she is looking for answers to why she is not feeling well in a lot of pain, please advise with patient [phone] ???This phone message was created by the ambulatory float staff. If you need technician support engineer follow up regarding this patient, please make your appropriate clinic staff member aware, Thank you??? Normal [facility] Prep for Procedureon 024 Prep for Procedure [id number] Brian Sadler se 1950 Provider Department Center 04/12/2023 KenyaTasiaLEENA WU MP PROC Medical Pavi Family History Problem Relation Age of Onset Other Mother Coronary artery disease Mother Other Mother Other Mother Other Father Hypertension Father Hyperlipidemia Father Other Daughter Family Status - Relation Status Age at Mother Father Daughter Normal [facility] Prep for Procedureon 024 Prep for Procedure [id number] Brian Sadler se 1950 Provider Department Center 03/31/2023 JOSE ANGEL LEE MP PROC Medical Pavi Family History Problem Relation Age of Onset Other Mother Coronary artery disease Mother Other Mother Other Mother Other Father Hypertension Father Hyperlipidemia Father Other Daughter Family Status - Relation Status Age at Mother Father Daughter Normal [facility] Follow-Upon 03-26-2023 Follow-Up [id number] Brian Sadler se 1950 Provider Department [place] 03/26/2023 JOSE ANGEL LEE MP PAIN Medical [facility]avi Family History Problem Relation Age of Onset Other Mother Coronary artery disease Mother Other Mother Other Mother Other Father Hypertension Father Hyperlipidemia Father Other Daughter Family Status - Relation Status Age at Mother Father Daughter Level of Service:22106 MO OFFICE/OUTPATIENT ESTABLISHED LOW MDM 20 MIN (GC) Reason for Visit and Comments: Follow-up [979122] - Physical Therapy only did a couple days of PT because of COPD and chest hurting [facility] Office Visiton 03-23-2023 Follow-up visit [id number] Brian Sadler se 1950 Provider Department Center 03/23/2023 Halina-IVRIN KWOK LEEANN [facility]es[facility] Family History Problem Relation Age of Onset Other Mother Coronary artery disease Mother Other Mother Other Mother Other Father Hypertension Father Hyperlipidemia Father Other Daughter Family Status - Relation Status Age at Mother Father Daughter Level of Service:31042 MO OFFICE/OUTPATIENT ESTABLISHED LOW MDM 20 MIN [facility] Letter (Out)on 02-23-2023 Letter (Out) [id number] Brian Sadler se 1950 Provider Department Center 02/23/2023 [id number] PRADO MP GI Medical [facility]avi Family History Problem Relation Age of Onset Other Mother Coronary artery disease Mother Other Mother Other Mother Other Father Hypertension Father Hyperlipidemia Father Other Daughter Family Status - Relation Status Age at Mother Father Daughter [facility] 36on 02-22-2023 36 Spoke with patient w ho voiced understanding not to complete the MRI at this time due to kidneys. Advised that the patient contact the Endoscopy department to review questions regarding HBT. [facility] 36 ----- Message from Natalia Kuhn NP sent at 2023 2:35 PM EST ----- Gaeb Xavier, Do you mind calling her and giving her an update that contrast is not recommended given her kidneys at this point. MRI imaging is not usually beneficial at all without contrast. We can do the HBT first and see her response to fiber. If the test is normal and her symptoms continue we can do the MRE. Thank you. [facility] Orders Onlyon 2023 Orders Only [id number] Brian Sadler se 1950 Provider Department [place] 2023 [id number] KUHN*NISHA GI Medical [facility] Family History Problem Relation Age of Onset Other Mother Coronary artery disease Mother Other Mother Other Mother Other Father Hypertension Father Hyperlipidemia Father Other Daughter Family Status - Relation Status Age at Mother Father Daughter [facility] 36on 02-17-2023 36 Instruction sheet fo r HBT and US order mailed to the patient. I scanned the stool study results into patients chart and sent them into Tierra's basket. [facility] 36 ----- Message from Natalia Kuhn NP sent at 02/16/2023 7:59 PM EST ----- Gabe Esteves, Do you mind helping mailing her a Hydrogen Breath Test instruction packet and Gall bladder US orders to her house. Do you mind also calling [facility] and requesting all her stool study results from dec or jan. They never faxed us any results. They are important so I can further help her. Thank you so much. I really appreciate your help with this. Normal [facility] Orders Onlyon 02-17-2023 Orders Only [id number] Brian Sadler se M 1950 F Date Provider Department Center 02/17/2023 [id number], HISTORICAL MP GI Medical [facility]avi Family History Problem Relation Age of Onset Other Mother Coronary artery disease Mother Other Mother Other Mother Other Father Hypertension Father Hyperlipidemia Father Other Daughter Family Status - Relation Status Age at Mother Father Daughter Normal [facility] Telemedicineon 02-16-2023 Telemedicine [id number] Brian Sadler se 1950 F Date Provider Department Center 02/16/2023 [id number], JACQUELIN*MP GI Medical [facility] Family History Problem Relation Age of Onset Other Mother Coronary artery disease Mother Other Mother Other Mother Other Father Hypertension Father Hyperlipidemia Father Other Daughter Family Status - Relation Status Age at Mother Father Daughter Level of Service:70696 MO OFFICE/OUTPATIENT ESTABLISHED HIGH MDM 40-54 MIN [facility] HISTOLOGY - TISSUE EXAMon LAB AP ASR DISCLAIMER The interpretation of this case included the use of immunohistochemistry or special stains. These tests have not been cleared or approved by the U.S. Food and Drug Administration. The FDA has determined that such clearance or approval is not necessary. These tests are used for clinical purposes and should not be regarded as investigational or for research. This laboratory is certified to perform high complexity testing under the Clinical Laboratory Improvement Amendments of 1998. [facility] Comment on above: Performed By: #### L [id number] ####[facility] ([id number] [address] LAB AP CASE REPORT Normal [facility] Comment on above: Result Comment: Surg ical Pathology Case: [id number] Authorizing Provider: Dario Calderon MD Collected: 02/09/2023 1345 Ordering Location: [facility] Received: 02/09/2023 1515 [facility] Endoscopy Pathologist: Jessica Pugh MD Specimens: A) - Small Intestine, Duodenum, r/o celiac B) - Gastric, r/o h pylori C) - Large Intestine, random colon biopsies microscopic colitis Performed By: #### L [id number] ####[facility] ([facility])[address] [place] [address] LAB AP CLINICAL INFORMATION Order Diagnoses Normal [facility] Comment on above: Result Comment: R10. 9 - Abdominal pain, unspecified abdominal location [ICD-10-CM] R19.4 - Change in bowel habits [ICD-10-CM] K52.9 - Chronic diarrhea [ICD-10-CM] Z80.0 - Family history of colon cancer in father [ICD-10-CM] Z80.0 - Family history of rectal cancer [ICD-10-CM] Z83.79 - Family history of Crohn's disease [ICD-10-CM] K21.9 - Gastroesophageal reflux disease, unspecified whether esophagitis present [ICD-10-CM] Performed By: #### L [id number] ####[facility] ([facility])[address] [place] [address] LAB AP GROSS DESCRIPTION Normal [facility] Comment on above: Result Comment: A. S mall Intestine, Duodenum. The specimen is received in formalin labeled Vero M Sadler, and r/o celiac . It consists of. 6 whitehead-pink irregular fragments of soft tissue measuring 0.6 x 0.4 x 0.2 cm in aggregate. The specimen is submitted in toto in 1 cassette. Vashti Marlow, Pathologists' Stem Processing Machine Operator student Clement Brower, Pathologists' Stem Processing Machine Operator B. Gastric. The specimen is received in formalin labeled Vero M Sadler, and r/o H. pylori . It consists of 3 whitehead-pink irregular fragments of soft tissue measuring 0.6 x 0.2 x 0.2 cm in aggregate. The specimen is submitted in toto in 1 cassette. Vashti Marlow, Pathologists' Stem Processing Machine Operator student Clement Brower, Pathologists' Stem Processing Machine Operator C. Large Intestine. The specimen is received in formalin labeled Vero M Sadler, and random colon biopsies microscopic colitis . It consists of 8 whitehead-pink irregular fragments of soft tissue measuring 0.9 x 0.6 x 0.2 cm in aggregate. The specimen is submitted in toto in 1 cassette. Vashti Marlow, Pathologists' Stem Processing Machine Operator student Clement Brower, Pathologists' Stem Processing Machine Operator Performed By: #### L [id number] ####[facility] ([facility])[address] [place] [address] LAB AP MICROSCOPIC DESCRIPTION Microscopic examination performed. Normal [facility] Comment on above: Performed By: #### L [id number] ####[facility] ([facility])[address] [place] [address] LAB AP REPORT FINAL DIAGNOSIS NARRATIVE Normal [facility] Comment on above: Result Comment: A. D uodenum, biopsy: - Duodenal mucosa with no specific histopathologic changes. - No features of celiac disease. B. Stomach, biopsy: - Gastric mucosa with focal changes of chemical gastropathy. - Negative for intestinal metaplasia or dysplasia. - Immunostain for H. pylori organisms is negative in the presence of appropriate controls. C. Colon, random biopsies: - Colonic mucosa with focal mild architectural distortion suggesting healing mucosal injury. - No features of microscopic colitis. - No dysplasia or malignancy is seen. Performed By: #### L [id number] ####[facility] ([facility])[address] [place] [address] HPon 02-09-2023 HP ---- -------- Attestation signed by Dario Calderon MD at 02/09/2023 1:22 PM I personally saw and examined the patient on the same date of service as resident/fellow . I discussed the findings and therapeutic plan with the resident/fellow . I agree with the documentation, except for any edits/updates below. Vero Sadler is a 72 y.o. female with PMHx of COPD, KATIE, HFpEF, CKD 3, who presents for EGD and Colonoscopy for evaluation of abdominal pain and change in stool consistency. Patient reported epigastric pain with radiation to her mid/lower abdomen, with watery stools. She was instructed to perform stool studies, but has not. She has a history of rectal cancer in her mother, colon cancer in her father. She had a prior colonoscopy at [facility], which was reportedly normal 3-4 years ago. She has never had a prior EGD. Plan: - EGD and Colonoscopy for assessment of epigastric abdominal pain and chronic diarrhea. -------- Gastroenterology History and Physical Note IDENTIFYING DATA PATIENT: Vero Sadler HISTORY OF PRESENT ILLNESS Vero Sadler is a 72 y.o. female with PMHx of COPD, KATIE, HFpEF, CKD 3, who presents for EGD and Colonoscopy for evaluation of abdominal pain and change in stool consistency. Patient reported epigastric pain with radiation to her mid/lower abdomen, with watery stools. She was instructed to perform stool studies, but has not. She has a history of rectal cancer in her mother, colon cancer in her father. She had a prior colonoscopy at [facility], which was reportedly normal 3-4 years ago. She has never had a prior EGD. PAST MEDICAL, SURGICAL, FAMILY, and SOCIAL HISTORY Past Medical History: Past Medical History: Diagnosis Date Abnormal ECG Adverse effect of anesthesia heartrate drops after colonoscopy Arthritis Chronic kidney disease COPD (chronic obstructive pulmonary disease) ([facility]) Hypertension Myocardial infarction ([facility]) Obstructive sleep apnea 10/02/2022 SOBIA=17.7 events/hour; Pranav SaO2=76%; Cklcbk=044.0 lbs; BMI=52.7 kg/m2, Home Sleep Apnea Testing on 09/25/[address] [facility] Past Surgical History: Past Surgical History: Procedure Laterality Date CARDIAC CATHETERIZATION COLONOSCOPY EYE SURGERY CATARACT FOOT SURGERY Right tendon repair HYSTERECTOMY INSERT / REPLACE / REMOVE PACEMAKER Family History: Family History Problem Relation Name Age of Onset Other (malig neoplastic disease) Mother Coronary artery disease Mother Other (cerebrovascular accident) Mother Other (renal disease) Mother Other (malig neoplastic disease) Father Hypertension Father Hyperlipidemia Father Other (malig neoplastic disease) Daughter Social History: Social History Tobacco Use Smoking status: Former Types: Cigarettes Quit date: 2007 Years since quittin.9 Passive exposure: Never Smokeless tobacco: Never Vaping Use Vaping Use: Never used Substance Use Topics Alcohol use: Yes Comment: rarely Drug use: Never Allergies: Allergies Allergen Reactions Penicillins Other Yeast infection Home Medications: Prior to Admission medications Medication Sig Start Date End Date Taking? Authorizing Provider albuterol 90 mcg/actuation inhaler Inhale 2 puffs every 4 (four) hours if needed for shortness of breath. Historical Provider, aspirin 81 mg EC tablet Take 81 mg by mouth in the morning. Historical Provider, bumetanide (Bumex) 1 mg tablet Take 1 tablet (1 mg) by mouth in the morning. Patient taking differently: Take 1 mg by mouth in the morning. Doesn't take when traveling 02/24/22 02/24/23 Tiffani Barrientos MD calcium carbonate-vitamin D3 600 mg-25 mcg (1,000 unit) capsule Take 1,000 Units by mouth in the morning. Patient not taking: Reported on 01/28/2023 12/15/22 03/15/23 Tian Ford MD carvedilol (Coreg) 12.5 mg tablet Take 1 tablet (12.5 mg) by mouth in the morning and at bedtime. Patient taking differently: Take 6.25 mg by mouth in the morning and at bedtime. 02/18/22 01/20/23 Loc Lott diclofenac (Voltaren) 75 mg EC tablet Take 75 mg by mouth in the morning and at bedtime. Do not crush, chew, or split. Historical Provider, hydrALAZINE (Apresoline) 100 mg tablet Take 100 mg by mouth in the morning, at noon, and at bedtime. Historical Provider, hyoscyamine (Levsin/SL) 0.125 mg SL tablet every 6 (six) hours if needed. 10/21/22 Historical Provider, levothyroxine (Synthroid, Levoxyl) 100 mcg tablet Take 100 mcg by mouth before breakfast. Historical Provider, liothyronine (Cytomel) 25 mcg tablet Take 1 tablet by mouth in the morning. Historical Provider, lisinopril 10 mg tablet Take 1 tablet (10 mg) by mouth in the morning. 12/15/22 12/15/23 Tian Ford MD lovastatin (Mevacor) 20 mg tablet Won (more content not included)... [facility] POCT GLUCOSE METER UNSOLICIT ED RESULTSon 02-09-2023 Glucose [Mass/Vol] 86 mg/dL Normal 70-105 Billy [facility] Comment on above: Order Comment: Waive d Testing in the ED is performed under the ED CLIA certificate #[id number]. Result Comment: acle ment Performed By: #### L [id number] #### [facility] ([facility]) [address] [place] [address] Prep for Procedureon 023 Prep for Procedure [id number] Brian Sadler se 1950 Date Provider Department Center 01/28/2023 DARIO JAVIER [facility] Family History Problem Relation Age of Onset Other Mother Coronary artery disease Mother Other Mother Other Mother Other Father Hypertension Father Hyperlipidemia Father Other Daughter Family Status - Relation Status Age at Mother Father Daughter Normal [facility] Follow-Upon 01-20-2023 Follow-Up [id number] Brian Sadler se 1950 Provider Department Center 01/20/2023 CINTIA NIXON [facility] Family History Problem Relation Age of Onset Other Mother Coronary artery disease Mother Other Mother Other Mother Other Father Hypertension Father Hyperlipidemia Father Other Daughter Family Status - Relation Status Age at Mother Father Daughter Level of Service:56475 MO OFFICE/OUTPATIENT ESTABLISHED MOD MDM 30-39 MIN Reason for Visit and Comments: Dizziness [030518] Wound Check [602148] Normal [facility] HPon 01-12-2023 HP History Of Present Illness Vero Sadler is a 72 y.o. female presenting with sick sinus syndrome. Past Medical History She has a past medical history of Abnormal ECG, Arthritis, Chronic kidney disease, COPD (chronic obstructive pulmonary disease) (CMS/HCC), Hypertension, Myocardial infarction (CMS/HCC), and Obstructive sleep apnea (10/02/2022). Surgical History She has a past surgical history that includes Eye surgery; Cardiac catheterization; Foot surgery (Right); and Hysterectomy. Social History She reports that she quit smoking about 15 years ago. Her smoking use included cigarettes. She has never been exposed to tobacco smoke. She has never used smokeless tobacco. She reports current alcohol use. She reports that she does not use drugs. Allergies Penicillins Medications Medications Prior to Admission Medication Sig Dispense Refill Last Dose albuterol 90 mcg/actuation inhaler Inhale 2 puffs every 4 (four) hours if needed for shortness of breath. Past Week aspirin 81 mg EC tablet Take 81 mg by mouth in the morning. Past Week bumetanide (Bumex) 1 mg tablet Take 1 tablet (1 mg) by mouth in the morning. 90 tablet 3 Past Week carvedilol (Coreg) 12.5 mg tablet Take 1 tablet (12.5 mg) by mouth in the morning and at bedtime. (Patient taking differently: Take 6.25 mg by mouth in the morning and at bedtime.) 60 tablet 0 01/12/2023 diclofenac (Voltaren) 75 mg EC tablet Take 75 mg by mouth in the morning and at bedtime. Do not crush, chew, or split. 01/11/2023 hydrALAZINE (Apresoline) 100 mg tablet Take 100 mg by mouth in the morning, at noon, and at bedtime. 01/12/2023 hyoscyamine (Levsin/SL) 0.125 mg SL tablet every 6 (six) hours. 01/11/2023 isosorbide mononitrate ER (Imdur) 30 mg 24 hr tablet Take 1 tablet (30 mg) by mouth in the morning. Do not crush or chew. 90 tablet 3 01/12/2023 levothyroxine (Synthroid, Levoxyl) 100 mcg tablet Take 100 mcg by mouth before breakfast. 01/11/2023 liothyronine (Cytomel) 25 mcg tablet Take 1 tablet by mouth in the morning. 01/11/2023 lisinopril 10 mg tablet Take 1 tablet (10 mg) by mouth in the morning. 90 tablet 3 01/12/2023 lovastatin (Mevacor) 20 mg tablet Take 20 mg by mouth in the morning. 01/11/2023 omega 0-eqx-kwc-fish oil 350 mg-235 mg- 90 mg-597 mg capsule,delayed release(DR/EC) Take 1 capsule by mouth in the morning. 01/11/2023 revefenacin (Yupelri) 175 mcg/3 mL nebulizer solution Take 175 mcg by nebulization in the morning. 01/11/2023 calcium carbonate-vitamin D3 600 mg-25 mcg (1,000 unit) capsule Take 1,000 Units by mouth in the morning. (Patient not taking: Reported on 01/12/2023) 120 capsule 3 Not Taking [] polyethylene glycol (GoLYTELY) 236-22.74-6.74 -5.86 gram solution Take 4,000 mL by mouth 1 (one) time for 1 dose. (Patient not taking: Reported on 01/12/2023) 4000 mL 0 Not Taking Review of Systems Physical Exam Last Recorded Vitals Blood pressure 166/68, pulse 50, resp. rate 17, SpO2 96 %. Relevant Results none Assessment/Plan Active Problems: Symptomatic bradycardia 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CMS/HCC) Pacemaker Jennifer Bullock MD [facility] NURSNOTEon 01-12-2023 NURSNOTE RN educated pt on d/ c instructions. RN encouraged pt to voice any questions or concerns. Pt verbalizes no questions or concerns at this time. [facility] NURSNOTE CHG wipes and betadi ne swabs completed. [facility] Orders Onlyon 01-12-2023 Orders Only [id number] Brian Sadler se 1950 F Date Provider Department Center 01/12/2023 Mariano-NAY MARRERO [facility] [place] [facility] Family History Problem Relation Age of Onset Other Mother Coronary artery disease Mother Other Mother Other Mother Other Father Hypertension Father Hyperlipidemia Father Other Daughter Family Status - Relation Status Age at Mother Father Daughter Normal [facility] Orders Onlyon 01-06-2023 Orders Only [id number] SadlerBrian joy 1950 F Date Provider Department Center 01/06/2023 NAY TREVINO [facility] [place] [facility] Family History Problem Relation Age of Onset Other Mother Coronary artery disease Mother Other Mother Other Mother Other Father Hypertension Father Hyperlipidemia Father Other Daughter Family Status - Relation Status Age at Mother Father Daughter Normal [facility] Office Visiton 01-05-2023 Follow-up visit [id number] SadlerBrian ojy 1950 F Date Provider Department Center 01/05/2023 [id number]-NMESZNENOPRESTON KUHN* [facility] Family History Problem Relation Age of Onset Other Mother Coronary artery disease Mother Other Mother Other Mother Other Father Hypertension Father Hyperlipidemia Father Other Daughter Family Status - Relation Status Age at Mother Father Daughter Level of Service:23278 MO OFFICE/OUTPATIENT NEW MODERATE MDM 45-59 MINUTES Reason for Visit and Comments: New Patient [632] Abdominal Pain [358480] - Pt states when she eats she feels pain in her stomach change in bowel habits [Other] Gas [49] Normal [facility] Orders Onlyon 01-05-2023 Orders Only [id number] Brian Sadler se 1950 Date Provider Department Center 01/05/2023 COLLETTE RODRIGUEZ LEEANN [facility] Family History Problem Relation Age of Onset Other Mother Coronary artery disease Mother Other Mother Other Mother Other Father Hypertension Father Hyperlipidemia Father Other Daughter Family Status - Relation Status Age at Mother Father Daughter Normal [facility] Office Visiton 01-01-2023 Follow-up visit [id number] Brian Sadler se 1950 Date Provider Department Center 01/01/2023 COLLETTE RODRIGUEZ LEEANN [facility] Family History Problem Relation Age of Onset Other Mother Coronary artery disease Mother Other Mother Other Mother Other Father Hypertension Father Hyperlipidemia Father Other Daughter Family Status - Relation Status Age at Mother Father Daughter Level of Service:24591 MO OFFICE/OUTPATIENT ESTABLISHED MOD MDM 30-39 MIN Normal [facility] Follow-Upon 12-22-2022 Follow-Up [id number] Brian Sadler se 1950 Provider Department Center 12/22/2022 JOSE ANGEL LEE MP [facility] Family History Problem Relation Age of Onset Other Mother Coronary artery disease Mother Other Mother Other Mother Other Father Hypertension Father Hyperlipidemia Father Other Daughter Family Status - Relation Status Age at Mother Father Daughter Level of Service:55042 MO POSTOP FOLLOW UP VISIT RELATED TO ORIGINAL PX Reason for Visit and Comments: Follow-up [632584] - Vertiflex at L3-4 and L4-[address] [facility] Office Visiton 12-15-2022 Follow-up visit [id number] Brian Sadler se 1950 Date Provider Department Center 12/15/2022 32732-KYNDEDTIAN [facility]D [facility] NEPH[facility] Comprehensiv Family History Problem Relation Age of Onset Other Mother Coronary artery disease Mother Other Mother Other Mother Other Father Hypertension Father Hyperlipidemia Father Other Daughter Family Status - Relation Status Age at Mother Father Daughter Level of Service:52408 MO OFFICE/OUTPATIENT ESTABLISHED LOW MDM 20-29 MIN Reason for Visit and Comments: Follow-up [634368] [facility] 36on 12-14-2022 36 Patient left a voice mail indicating she has been receiving calls to set up an appointment with her DME ([facility]) to be set up with CPAP. Patient was under the impression she would be meeting with me. Left voicemail with patient explaining that, since [facility] will be providing the equipment, she should have the initial appointment with them. Then, if she has further questions or issues, she can let me know and I will meet further with her. [facility] Follow-Upon 12-08-2022 Follow-Up [id number] Brian Sadler se 1950 F Date Provider Department Center 12/08/2022 JOSE ANGEL LEE MP [facility] Family History Problem Relation Age of Onset Other Mother Coronary artery disease Mother Other Mother Other Mother Other Father Hypertension Father Hyperlipidemia Father Other Daughter Family Status - Relation Status Age at Mother Father Daughter Level of Service:71103 MO POSTOP FOLLOW UP VISIT RELATED TO ORIGINAL PX Reason for Visit and Comments: Follow-up [709955] - one week post op -Vertiflex at L3-4 and L4-5 [facility] HPon 11-30-2022 HP H&P reviewed. The patient was examined and there are no changes to the H&P. [facility] OPNOTEon 11-30-2022 OPNOTE L3-L5 SPINE DECOMPRESSION , USING VERTIFLEX SUPERION INTERSPINOUS SPACER Operative Note Date: 11/30/2022 Location: [facility] OR Name: Vero Sadler, : 1950, Diagnosis Pre-op Diagnosis * Spinal stenosis of lumbar region with neurogenic claudication [M48.062] Post-op Diagnosis * Spinal stenosis of lumbar region with neurogenic claudication [M48.062] Procedures L3-L5 SPINE DECOMPRESSION , USING VERTIFLEX SUPERION INTERSPINOUS SPACER 23671 - MO INSJ STABLJ DEV W/O DCMPRN LUMBAR SINGLE LEVEL MO INSJ STABLJ DEV W/O DCMPRN LUMBAR SECOND LEVEL [59649] Surgeons * Jose Angel Meehan - Primary Procedure Summary Anesthesia: Monitor Anesthesia Care ASA: III Estimated Blood Loss: minimal Total IV Fluids: See anesthesia record Drains: * None in log * Implants Type Name Action Serial No. SUPERION IDS - 10MM Implanted SUPERION IDS - 12MM Implanted Staff: Band Lining Bander: Eran Roa RN Scrub Person: Paulette García CST Body Piercer: Deandre Campos CSA Indications: Vero Sadler is an 72 y.o. female who is having surgery for Spinal stenosis of lumbar region with neurogenic claudication [M48.062]. Procedure Details: The patient was seen in the preoperative area. The risks, benefits, complications, treatment options, non-operative alternatives, expected recovery and outcomes were discussed with the patient. The possibilities of reaction to medication, pulmonary aspiration, injury to surrounding structures, bleeding, recurrent infection, the need for additional procedures, failure to diagnose a condition, and creating a complication requiring transfusion or operation were discussed with the patient. The patient concurred with the proposed plan, giving informed consent. The site of surgery was properly noted/marked if necessary per policy. The patient has been actively warmed in preoperative area. Preoperative antibiotics have been ordered and given within 1 hours of incision. Venous thrombosis prophylaxis have been ordered including bilateral sequential compression devices Findings: ASSISTANTS: Jolene Hunt MD (Fellow) SEDATION: Monitored Anesthesia Care PREOPERATIVE ANTIBIOTICS: 2 grams of Ancef was given 30 minutes prior to incision PREOPERATIVE DIAGNOSES: Lumbar spinal stenosis with neurogenic claudication OPERATION: Indirect Lumbar Decompression via interspinous spacer device at L3-4 and L4-5 POSTOPERATIVE DIAGNOSES: Lumbar spinal stenosis with neurogenic claudication ESTIMATED BLOOD LOSS: Minimal. COMPLICATIONS: None. SPECIMENS: None. OPERATIVE PROCEDURE: The correct site was marked, and informed consent was taken verbally and in writing. The patient was brought to the operating room and was placed in the prone position. Patient was prepped and draped in the usual sterile fashion with chlorohexadine two times. A time out was performed. With fluoroscopic guidance the location of the desired site for placement of the interspinous spacer was identified and local anesthetic consisting of 1% Lidocaine 1:200k epinephrine and 0.5 % bupivacaine was injected subcutaneously over the area. An approximately 2 cm incision was made in the midline. A scalpel was used to make a stab incision down to the supraspinous ligament at L4-5. A Vertiflex dilator was placed into the skin and advanced using intermittent fluoroscopic guidance in an alternating AP and lateral fluoroscopic images down to the lamina between L4-5. A series of dilators were used to place the working cannula in proper position, dorsal to the lamina. A measuring gauge was introduced to the proper depth and the space was measured. The space measured and found to be 10mm. A 10mm Superion device was introduced and deployed at the correct depth and then advanced down to the spinal laminar junction. The second level was identified under fluoroscopy. A scalpel was used to make a stab incision down to the supraspinous ligament at L3-4. A Vertiflex dilator was placed into the skin and advanced using intermittent fluoroscopic guidance in an alternating AP and lateral fluoroscopic images down to the lamina between L3-4. A series of dilators were used to place the working cannula in proper position, dorsal to the lamina. A measuring gauge was introduced to the proper depth and the space was measured. The space measured and found to be 12mm. A 12mm Superion device was introduced and deployed at the correct depth and then advanced down to the spinal laminar junction. AP and lateral images were taken to confirm proper placement of the device. The incision was closed with 2.0 Vicryl suture, subcutaneous 3-0 Monocryl and a sterile occlusive tegaderm was placed. The patient was then taken to PACU in stable condition. Complications: None; patient tolerated the procedure well. Disposition: PACU - hemodynamically stable. Condition: stable Jose Angel Meehan Attestation: (more content not included)... Normal [facility] Orders Onlyon 11-30-2022 Orders Only [id number] Brian Sadler se 1950 F Date Provider Department [place] 11/30/2022 JOSE ANGEL LEE MP [facility] Family History Problem Relation Age of Onset Other Mother Coronary artery disease Mother Other Mother Other Mother Other Father Hypertension Father Hyperlipidemia Father Other Daughter Family Status - Relation Status Age at Mother Father Daughter Normal [facility] POCT GLUCOSE METER UNSOLICIT ED RESULTSon 11-30-2022 Glucose [Mass/Vol] 92 mg/dL Normal 70-105 [facility] Comment on above: Order Comment: Waive d Testing in the ED is performed under the ED CLIA certificate #[id number]. Result Comment: asor ia3 Performed By: #### L [id number] #### [facility] ([facility]) [address] [place] [address] Physician Referralon 023 Physician Referral [phone] [id number]:1 27 [facility] Physician Referralon 023 Physician Referral [phone] [phone] [id number]: 127 [facility] 36on 11-11-2022 36 Faxed order, demographics, HSAT report, and visit notes to [facility]. [facility] 36on 11-06-2022 36 Patient came into e office to discuss possible PAP masks. Patient did not want to try nasal pillows as she does not like the idea of anything going up her nose. Patient would like to try hybrid nasal mask (fitted for ResMed AirFit N30 size small or small-wide). Provided sample mask to patient. [facility] Follow-Upon 11-06-2022 Follow-Up [id number] Brian Sadler se 1950 F Date Provider Department Center 11/06/2022 JOSE ANGEL LEE MP [facility] Family History Problem Relation Age of Onset Other Mother Coronary artery disease Mother Other Mother Other Mother Other Father Hypertension Father Hyperlipidemia Father Other Daughter Family Status - Relation Status Age at Mother Father Daughter Level of Service:46442 MO OFFICE/OUTPATIENT ESTABLISHED MOD MDM 30-39 MIN () Reason for Visit and Comments: Follow-up [965089] - 4 wk F/U TFESI [facility] HPon 11-06-2022 [facility] Interventional Pain Management SUBJECTIVE: Subjective 11/06/22 CC: Chief Complaint Patient presents with Follow-up 4 wk F/U TFESI Pain Assessment Pain Assessment: 0-10 Pain Score: 8 Pain Type: Chronic pain Pain Location: Back Pain Orientation: Right, Left, Lower Pain Descriptors: Sharp Pain Frequency: Intermittent (0/10 only when sitting) Pain Onset: Ongoing Clinical Progression: Not changed Aggravating Factors: Walking, Standing Pain Interventions: Rest, Shower 72 year old female here to follow up s/p TFESI L4/5. She had complete relief of radicular pain in right leg but continues to have low back pain that is worse with standing and walking she has become more functionally limited and has to take sit down and take breaks with full resolution of pain symptoms.. Spacers were discussed at last visit. Since then she had a bone scan and EP study both of which were normal. She is on aspirin 81mg daily. States she is able to stand just a few minutes and can walk less than a minute without breaks. Per prior note: 72 year old female here to follow up lumbar xray and dexa scan. Patients results show osteopenia worse in femoral neck . Lumbar Xray showes advance multilevel disc space loss. Patient is currently seeing nephrology for her ckd III/b . Patient also is seeing cardiology for arrhthymias which are not persistent anymore, patient is to follow up with cardiology in october to assess next step. She is scheduled for a sleep apnea test to determine if this might be the reason for her arrhythmias. Patient states she had an episode of arrhythmia last night. Patients pain is currently controlled by resting when she has her low back pain flare. Currently her pain starts in her right low back and will radiate slightly past her knees. Patient is no longer in physical therapy due to lack of improvement. Per prior note: 72 year old female here to follow up PT, since last visit she has seen cardiology resume specialist for [place]. patient reports that overall she is doing much better following mild. She reports leg pain has resolved. Patient has more mild low back pain that worsens with standing and walking. Patient states that she is being worked up by cardiology because of arrhythmia. Patient reports overall she is doing well but she would like to continue to improve her back pain Per prior note: This is a 72-year-old female presenting to follow-up mild L3-4 and L4-5. Overall patient is reporting 50% improvement in back pain. She reports being able to stand longer and walk further. She was able to walk around [email or web address] which she previously was not able to do without taking long breaks. Reports improved sleep at night. Her back pain is significantly improved laying flat. Patient denies issues with incisions other than some bruising. Steri-Strips are still intact. Denies any fevers chills . Denies any drainage or discharge from incision. Patient reports that she had a poor perioperative experience with placement of her IV. She reports missed placement of IV and reports when dressing was taken off her skin tore. She reports this is scabbed over. Patient reports that she took Percocet postoperatively did not tolerate this has been taking Tylenol since. She plans to dispose of Percocet Per prior note: 72 year old female here to follow up 04/01/22 - Bilateral radiofrequency ablation L3-4 and L4-5. Patient states that she did not have significant pain relief since procedure. She is still having significant back pain that she states has worsened. Her leg pain has improved and has not worsened since procedure. She states that the back pain is spread out through the entire lumbar region. She describes the pain as sharp, shooting, aching, throbbing. She states that the pain is worse with standing and walking, and that she is still having to use her walker more than she would like. She states that she will have significant pain after 5 to 10 minutes of standing. The pain is better with rest, sitting, laying down. Reports no pain while sitting, flexing forward or being in a recumbent position. Denies any new onset numbness, weakness, incontinence. Per prior note: This is a 72 year old female returning to follow up after procedure LESI L4-5. The patient reports pain has been improved by 50% in the low back and over 80% in the legs. Primary pain complaint localized low back pain. This is persistent at rest but does worsen with standing and walking. Pain subsides slightly with sitting or forward flexion. Patient does use a walker Per prior note: Referral Source: Marta Yeung CNP (Neurosurgery) CC: low back pain The patient is a 71 year old female who presents with a chief complaint of low back pain. Pain is located in the low back and radiates to the feet. The patient has had this pain for years. The initiating event was reported as progressively (more content not included)... Normal [facility] 36on 10-29-2022 36 Patient will come instead as she has an appointment in [place] that morning. [facility] 2910-27-2022 29 Addended by: MERRY FREIRE on: 10/28/2022 01:13 PM Modules accepted: Orders [facility] Office Visiton 10-27-2022 Follow-up visit [id number] Brian Sadler se 1950 F Date Provider Department [place] 10/27/2022 241-IRVIN KWOK LEEANN [facility] Family History Problem Relation Age of Onset Other Mother Coronary artery disease Mother Other Mother Other Mother Other Father Hypertension Father Hyperlipidemia Father Other Daughter Family Status - Relation Status Age at Mother Father Daughter Level of Service:73123 MO OFFICE/OUTPATIENT ESTABLISHED MOD MDM 30-39 MIN Reason for Visit and Comments: Follow-up [[id number]] [facility] 36on 10-16-2022 36 Lengthy discussion w ith patient regarding results and PAP therapy. Patient will come into the office (10/29?) to discuss further and look at different mask options. [facility] 36 Yes, sent her refill. [facility] Orders Onlyon 10-16-2022 Orders Only [id number] Brian Sadler se 1950 Provider Department [place] 10/16/2022 [id number]-XTKDBITIAN FORD [facility]RO Comprehensiv Family History Problem Relation Age of Onset Other Mother Coronary artery disease Mother Other Mother Other Mother Other Father Hypertension Father Hyperlipidemia Father Other Daughter Family Status - Relation Status Age at Mother Father Daughter [facility] 3610-15-2022 36 Patient called pelon michelle if she's suppose still be taking calcium carbonate-vitamin D3 1,000 mg-20 mcg and if so she's going to need some sent to the pharmacy. Please advise [facility] 10-14-2022 36 ----- Message from A naga Cavazos MD sent at 10/02/2022 4:58 PM EDT ----- Regarding: Positive HSAT Damien, positive HSAT. Please notify the patient and ask if she would be agreeable to be set up on APAP therapy. [facility] HPon 10-07-2022 H&P reviewed. The patient was examined and there are no changes to the H&P. [facility] 36on 09-25-2022 36 Doesn't look like it was our office that contacted patient. [facility] 36 Pt returned call ple ase call back [facility] 29on 09-22-2022 29 Addended by: FARNAZ DIXON on: 09/22/2022 08:04 PM Modules accepted: Orders [facility] Follow-Upon 09-22-2022 Follow-Up [id number] DoroteoBrian se Wick 1950 F Date Provider Department Center 09/22/2022 JOSE ANGEL LEE MP PAIN [facility] Family History Problem Relation Age of Onset Other Mother Coronary artery disease Mother Other Mother Other Mother Other Father Hypertension Father Hyperlipidemia Father Other Daughter Family Status - Relation Status Age at Mother Father Daughter Level of Service:51025 MO OFFICE/OUTPATIENT ESTABLISHED MOD MDM 30-39 MIN Reason for Visit and Comments: Follow-up [[id number]] - DEXA scan [facility] 09-22-2022 [facility] Interventional Pain Management SUBJECTIVE: Subjective 09/22/22 CC: Chief Complaint Patient presents with Follow-up DEXA scan Pain Assessment Pain Assessment: 0-10 Pain Score: 9 Pain Type: Chronic pain Pain Location: Back Pain Orientation: Right, Lower Pain Radiating Towards: across lower back, down right leg Pain Descriptors: Radiating, Throbbing, Shooting, Tightness, Cramping Pain Frequency: Constant/continuous Pain Onset: Ongoing Clinical Progression: Gradually worsening Aggravating Factors: Bending, Exercise, Kneeling, Squatting, Stairs, Standing, Stretching, Walking Result of Injury: No Work-Related Injury: No Pain Interventions: Rest, Shower 72 year old female here to follow up lumbar xray and dexa scan. Patients results show osteopenia worse in femoral neck . Lumbar Xray showes advance multilevel disc space loss. Patient is currently seeing nephrology for her ckd III/b . Patient also is seeing cardiology for arrhthymias which are not persistent anymore, patient is to follow up with cardiology in october to assess next step. She is scheduled for a sleep apnea test to determine if this might be the reason for her arrhythmias. Patient states she had an episode of arrhythmia last night. Patients pain is currently controlled by resting when she has her low back pain flare. Currently her pain starts in her right low back and will radiate slightly past her knees. Patient is no longer in physical therapy due to lack of improvement. Per prior note: 72 year old female here to follow up PT, since last visit she has seen cardiology resume specialist for [place]. patient reports that overall she is doing much better following mild. She reports leg pain has resolved. Patient has more mild low back pain that worsens with standing and walking. Patient states that she is being worked up by cardiology because of arrhythmia. Patient reports overall she is doing well but she would like to continue to improve her back pain Per prior note: This is a 72-year-old female presenting to follow-up mild L3-4 and L4-5. Overall patient is reporting 50% improvement in back pain. She reports being able to stand longer and walk further. She was able to walk around [employer] which she previously was not able to do without taking long breaks. Reports improved sleep at night. Her back pain is significantly improved laying flat. Patient denies issues with incisions other than some bruising. Steri-Strips are still intact. Denies any fevers chills . Denies any drainage or discharge from incision. Patient reports that she had a poor perioperative experience with placement of her IV. She reports missed placement of IV and reports when dressing was taken off her skin tore. She reports this is scabbed over. Patient reports that she took Percocet postoperatively did not tolerate this has been taking Tylenol since. She plans to dispose of Percocet Per prior note: 72 year old female here to follow up 04/01/22 - Bilateral radiofrequency ablation L3-4 and L4-5. Patient states that she did not have significant pain relief since procedure. She is still having significant back pain that she states has worsened. Her leg pain has improved and has not worsened since procedure. She states that the back pain is spread out through the entire lumbar region. She describes the pain as sharp, shooting, aching, throbbing. She states that the pain is worse with standing and walking, and that she is still having to use her walker more than she would like. She states that she will have significant pain after 5 to 10 minutes of standing. The pain is better with rest, sitting, laying down. Reports no pain while sitting, flexing forward or being in a recumbent position. Denies any new onset numbness, weakness, incontinence. Per prior note: This is a 72 year old female returning to follow up after procedure LESI L4-5. The patient reports pain has been improved by 50% in the low back and over 80% in the legs. Primary pain complaint localized low back pain. This is persistent at rest but does worsen with standing and walking. Pain subsides slightly with sitting or forward flexion. Patient does use a walker Per prior note: Referral Source: Marta Yeung CNP (Neurosurgery) CC: low back pain The patient is a 71 year old female who presents with a chief complaint of low back pain. Pain is located in the low back and radiates to the feet. The patient has had this pain for years. The initiating event was reported as progressively worsening slowly over years Since starting, the symptoms have worsened. The pain quality is sharp, stabbing, burning, throbbing. The pain is constant. Today, the pain intensity is rated as a 7 on a scale of 0-10. Patient reports associated symptoms of numbness, tingling down legs to feet; Alleviated with sitting, lying; Exacerbated with prolonged standing, walking (more content not included)... Normal [facility] BASIC METABOLIC PANELon 06-2 Anion gap [Moles/Vol] 10 mmol/L Normal 7-[address] [facility] Comment on above: Performed By: #### L [id number] #### [facility] ([facility]) [address] [place] [address] Calcium [Mass/Vol] 8.8 mg/dL Normal 8.6-10.3 [facility] Comment on above: Performed By: #### L [id number] #### [facility] ([facility]) [address] [place] [address] Chloride [Moles/Vol] 108 mmol/L High 98-[address] [facility] Comment on above: Performed By: #### L [id number] #### [facility] ([facility]) [address] [place] [address] CO2 [Moles/Vol] 30 mmol/L Normal 21-[address] [facility] Comment on above: Performed By: #### L [id number] #### [facility] ([facility]) [address] [place] [address] Creatinine [Mass/Vol] 1.41 mg/dL High 0.60-1.[address] [facility] Comment on above: Performed By: #### L [id number] #### [facility] ([facility]) [address] [place] [address] GLOMERULAR FILTRATION RATE ML/MIN/1.73 SQ M.PREDICTED 39.9 mL/min/1.73m*2 Low >60.0 [facility] Comment on above: Result Comment: The [facility]???s estimated glomerular filtration rate (eGFR) will no longer include consideration of race in its calculation. The National Kidney Foundation???s eGFR Task Force developed new recommendations for the estimation of the glomerular filtration rate in the [place] They recommend immediate implementation of the new equation refit without the race variable in all laboratories because the calculation does not include race. In addition to not including race in the calculation and reporting, it included diversity in its development, and has acceptable performance characteristics and potential consequences that do not disproportionately affect any one group of individuals. Performed By: #### L [id number] #### [facility] ([facility]) [address] [place] [address] Glucose [Mass/Vol] 102 mg/dL High 70-100 [facility] Comment on above: Performed By: #### L [id number] #### [facility] ([facility]) [address] [place] [address] Potassium [Moles/Vol] 4.4 mmol/L Normal 3.5-5.[address] [facility] Comment on above: Performed By: #### L [id number] #### [facility] ([facility]) [address] [place] [address] Sodium [Moles/Vol] 144 mmol/L Normal 136-145 [facility] Comment on above: Performed By: #### L [id number] #### [facility] ([facility]) [address] [place] [address] Urea nitrogen [Mass/Vol] 19 mg/dL Normal 7-[address] [facility] Comment on above: Performed By: #### L [id number] #### [facility] [address] [place] [address] UREA NITROGEN/CREATININ E (MASS RATIO) IN SER/PLAS 13.[address] [facility] Comment on above: Performed By: #### L [id number] #### [facility] ([facility]) [address] [place] [address] CBCon 09-08-2022 Erythrocyte distribution width (RBC) [Ratio] 13.8 % Normal 11.5-15.[address] [facility] Comment on above: Performed By: #### L [id number] #### [facility] ([facility]) [address] [place] [address] ERYTHROCYTE MEAN CORPUSCULAR HEMOGLOBIN CONCENTRATION (G/DL) BY AUTOMATED 30.6 g/dL Low 32.0-35.[address] [facility] Comment on above: Performed By: #### L [id number] #### [facility] ([facility]) [address] [place] [address] Hematocrit (Bld) [Volume fraction] 41.5 % Normal 36.0-48.[address] [facility] Comment on above: Performed By: #### L [id number] #### [facility] ([facility]) [address] [place] [address] Hemoglobin (Bld) [Mass/Vol] 12.7 g/dL Normal 12.0-15.[address] [facility] Comment on above: Performed By: #### L [id number] #### [facility] ([facility]) [address] [place] [address] MCH (RBC) [Entitic mass] 28.3 pg Normal 27.0-33.[address] [facility] Comment on above: Performed By: #### L [id number] #### [facility] ([facility]) [address] [place] [address] MCV (RBC) [Entitic vol] 92.6 fL Normal 82.0-98.[address] [facility] Comment on above: Performed By: #### L [id number] #### [facility] ([facility]) [address] [place] [address] PLATELETS (10*3/UL) IN BLOOD AUTOMATED COUNT 232 10*3/uL Normal 150-[address] [facility] Comment on above: Performed By: #### L [id number] #### [facility] ([facility]) [address] [place] [address] RBC (Bld) [#/Vol] 4.48 10*6/uL Normal 3.80-5.00 [facility] Comment on above: Performed By: #### L [id number] #### [facility] ([facility]) [address] [place] [address] WBC (Bld) [#/Vol] 7.39 10*3/uL Normal 4.00-10.60 [facility] Comment on above: Performed By: #### L [id number] #### [facility] ([facility]) [address] [place] [address] CREATININE, URINE, RANDOMon 09-08-2022 Creatinine (U) [Mass/Vol] 160.0 mg/dL Normal 26-[address] [facility] Comment on above: Performed By: #### L [id number] #### [facility] ([facility]) [address] [place] [address] Labon 09-08-2022 Lab [id number] Brian Sadler se 1950 F Date Provider Department [place] 09/08/2022 224[facility] RESOURCE [facility] Comprehensiv Family History Problem Relation Age of Onset Other Mother Coronary artery disease Mother Other Mother Other Mother Other Father Hypertension Father Hyperlipidemia Father Other Daughter Family Status - Relation Status Age at Mother Father Daughter Normal [facility] MICROALBUMIN, URINE, RANDOMo n 09-08-2022 Albumin DL <= 20 mg/L (U) [Mass/Vol] 51 mg/dL Normal [facility] Comment on above: Performed By: #### L [id number] #### [facility] ([facility]) [address] [place] [address] MICROALBUMIN/CREAT ININE (MG/G) IN URINE 318.8 mg/g Creat High 0.0-30.[address] [facility] Comment on above: Performed By: #### L [id number] #### [facility] ([facility]) [address] [place] [address] Office Visiton 09-08-2022 Follow-up visit [id number] Brian Sadler se 1950 F Date Provider Department Center 09/08/2022 [id number]-CQULPFTIAN FORD [facility] Comprehensiv Family History Problem Relation Age of Onset Other Mother Coronary artery disease Mother Other Mother Other Mother Other Father Hypertension Father Hyperlipidemia Father Other Daughter Family Status - Relation Status Age at Mother Father Daughter Level of Service:58903 MO OFFICE/OUTPATIENT ESTABLISHED LOW MDM 20-29 MIN Reason for Visit and Comments: Follow-up [[id number]] Normal [facility] Refillon 08-05-2022 Refill [id number] Brian Sadler se 1950 F Date Provider Department Center 08/05/2022 344-GRICELDA WEN [facility] Comprehensiv Family History Problem Relation Age of Onset Other Mother Coronary artery disease Mother Other Mother Other Mother Other Father Hypertension Father Hyperlipidemia Father Other Daughter Family Status - Relation Status Age at Mother Father Daughter Reason for Visit and Comments: Med Refill [[id number]] Normal [facility] Office Visiton 08-04-2022 Follow-up visit [id number] Brian Sadler se 1950 F Date Provider Department Center 08/04/2022 271-TATO SALCIDO LEEANN [facility] Family History Problem Relation Age of Onset Other Mother Coronary artery disease Mother Other Mother Other Mother Other Father Hypertension Father Hyperlipidemia Father Other Daughter Family Status - Relation Status Age at Mother Father Daughter Level of Service:46229 MO OFFICE/OUTPATIENT ESTABLISHED SF MDM 10-19 MIN Reason for Visit and Comments: Follow-up [[id number]] - 3 month follow up Normal [facility] Follow-Upon 07-28-2022 Follow-Up [id number] Brian Sadler se 1950 F Date Provider Department Center 07/28/2022 JOSE ANGEL LEE MP PAIN [facility] Family History Problem Relation Age of Onset Other Mother Coronary artery disease Mother Other Mother Other Mother Other Father Hypertension Father Hyperlipidemia Father Other Daughter Family Status - Relation Status Age at Mother Father Daughter Level of Service:39000 MO OFFICE/OUTPATIENT ESTABLISHED LOW MDM 20-29 MIN Reason for Visit and Comments: Follow-up [[id number]] - 2 month follow up Normal [facility] HP 07-22-2022 [facility] Cardiology Consul t Note Reason for visit: NSVT HPI: Vero Sadler is a 72 y.o. year old with past medical history of resistant hypertension, sinus bradycardia. She was seen by DR Restrepo after she had been observed to have low HR when she was seen by pain team for nerve ablation for back pain. This led to event monitor which revealed NS-VT as well as NS-AT. She feesl the AT episodes. TESTING: Event monitor that was placed from 04/27/2019 to 04/15/20112022 revealed the presence of nonsustained ventricular tachycardia as well as episodes of nonsustained atrial tachycardia's. Episode of nonsustained atrial tachycardia was noted on 02/24/2022 at 9:23 PM as well as another monitor on 03/01/2020 to 03/06/2022 as well as 03/07/2020 to 03/10/2022. Reportedly there were episodes of wide-complex tachycardia that was noted on 03/12/2022 at 9:51 PM which appeared more like an idioventricular rhythm lasted for approximately 8seconds. ECHO 07/19/19: preserved LV function, grade II DD, biatrial enlargement, mild TR, moderately elevated right sided pressures (RVSP 45-60) Cardiac cath 07/2016 FINAL IMPRESSION: 1. Normal epicardial arteries. 2. 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 Exercise stress test 01/26/2022: 1. Moderate sized, moderate severity, fixed defect in anterior wall LAD distribution-there are no wall motion abnormalities noted, ejection fraction is normal. This cannot be anything but breast artifact 2. No reversible ischemia 3. Dilated left ventricle 4. Normal global left ventricular systolic function with an EF of 69% 5. No transient ischemic dilation 6. Normal exercise stress test PMH: Past Medical History: Diagnosis Date Arrhythmia Arthritis Chronic kidney disease COPD (chronic obstructive pulmonary disease) (CMS/HCC) Hypertension Myocardial infarction (CMS/HCC) PSH: Past Surgical History: Procedure Laterality Date CARDIAC CATHETERIZATION EYE SURGERY CATARACT FOOT SURGERY HYSTERECTOMY SH: Social Determinants of Health Tobacco Use: Medium Risk Smoking Tobacco Use: Former Smokeless Tobacco Use: Never Passive Exposure: Never Alcohol Use: Not on file Financial Resource Strain: Not on file Food Insecurity: Not on file Transportation Needs: Not on file Physical Activity: Not on file Stress: Not on file Social Connections: Not on file Intimate Partner Violence: Not on file Depression: Not at risk PHQ-2 Score: 0 Housing Stability: Not on file Allergies: Allergies Allergen Reactions Penicillins Other Yeast infection Weight: 145kg Visit Vitals BP (!) 184/70 Pulse (!) 47 Resp 16 Wt (!) 144 kg (317 lb 7.4 oz) LMP (LMP Unknown) SpO2 96% BMI 52.83 kg/m??? OB Status Hysterectomy Smoking Status Former BSA 2.57 m??? Meds: No current facility-administered medications on file prior to encounter. Current Outpatient Medications on File Prior to Encounter Medication Sig Dispense Refill albuterol 90 mcg/actuation inhaler Inhale 2 puffs every 4 (four) hours if needed for shortness of breath. aspirin 81 mg EC tablet Take 81 mg by mouth in the morning. bumetanide (Bumex) 1 mg tablet Take 1 tablet (1 mg) by mouth in the morning. 90 tablet 3 carvedilol (Coreg) 12.5 mg tablet Take 1 tablet (12.5 mg) by mouth in the morning and at bedtime. 60 tablet 0 diclofenac (Voltaren) 75 mg EC tablet Take 75 mg by mouth in the morning and at bedtime. Do not crush, chew, or split. hydrALAZINE (Apresoline) 100 mg tablet Take 100 mg by mouth in the morning, at noon, and at bedtime. levothyroxine (Synthroid, Levoxyl) 100 mcg tablet Take 100 mcg by mouth before breakfast. liothyronine (Cytomel) 25 mcg tablet Take 1 tablet by mouth in the morning. lisinopril 5 mg tablet TAKE 1 TABLET BY MOUTH EVERY DAY IN THE MORNING 30 tablet 1 lovastatin (Mevacor) 20 mg tablet Take 20 mg by mouth in the morning. omega 6-aym-rak-fish oil 350 mg-235 mg- 90 mg-597 mg capsule,delayed release(DR/EC) Take 1 capsule by mouth in the morning. revefenacin (Yupelri) 175 mcg/3 mL nebulizer solution Take 175 mcg by nebulization in the morning. sodium polystyrene sulfonate (Kayexalate) powder Take 15 grams by mouth daily. 454 g 11 amLODIPine (Norvasc) 10 mg tablet Take 1 tablet (10 mg) by mouth in the morning. (Patient not taking: No sig reported) 30 tablet 0 [DISCONTINUED] amLODIPine (Norvasc) 5 mg tablet Take 1 tablet (5 mg) by mouth in the morning. 90 tablet 3 [DISCONTINUED] clotrimazole-betamethaso ne (Lotrisone) cream Apply 1 application. topically in the morning and at bedtime. [DISCONTINUED] Oyster Shell Calcium-Vit D3 500 mg-5 mcg (200 unit) tablet TAKE 2 TABLETS BY MOUTH ONCE EVERY MORNING (Patient taking differently: Take 2 tablets by mouth in the morning.) 60 tablet 2 [DISCONTINUED] rutin/hesp/bioflav/C/her [id number] (BIOFLEX ORAL) Take 1 tablet by mouth once daily as directed. [DISCONTINUED] spironolactone (Aldac (more content not included)... [facility] NURSNOTEon 07-22-2022 NURSNOTE RN educated pt on d/ c instructions. RN encouraged pt to voice any questions or concerns. Pt verbalizes no questions or concerns at this time. Pt was wheeled off of unit with all of belongings. [facility] CBC AUTO DIFFon 07-17-2022 BASO # 0.0 103/ul Normal 0.0-0.1 [facility] Comment on above: Performed By: #### C BC #### [facility] [address] [address] [address] Eusebia Moralez Basophils/100 WBC (Bld) 0.6 % Normal 0.2-2.0 [facility] Comment on above: Performed By: #### C BC #### [facility] [address] [address] [address] Eusebia Moralez EO # 0.2 103/ul Normal 0.0-0.7 [facility] Comment on above: Performed By: #### C BC #### [facility] Laboratory [address] [place] [address] Dr. Eusebia Moralez Eosinophils/100 WBC (Bld) 2.2 % Normal 0.9-7.0 [facility] Comment on above: Performed By: #### C BC #### [facility] [address] [place] [address] Dr. Eusebia Moralez Erythrocyte distribution width (RBC) [Ratio] 13.0 % Normal 11.0-15.0 [facility] Comment on above: Performed By: #### C BC #### [facility] [address] [place] [address] Dr. Eusebia Moralez Hematocrit (Bld) [Volume fraction] 40.5 % Normal 36.0-48.0 [facility] Comment on above: Performed By: #### C BC #### [facility] [address] [place] [address] Dr. Eusebia Moralez Hemoglobin (Bld) [Mass/Vol] 12.7 g/dL Normal 12.0-16.0 [facility] Comment on above: Performed By: #### C BC #### [facility] [address] [place] [address] Dr. Eusebia Moralez IG # 0.02 10e3/ul Normal 0.00-0.03 [facility] Comment on above: Performed By: #### C BC #### [facility] [address] [place] [address] Dr. Eusebia Moralez IG % 0.3 % Normal 0.0-0.5 [facility] Comment on above: Performed By: #### C BC #### [facility] [address] [place] [address] Dr. Eusebia Moralez LYMPH # 1.4 103/ul Normal 1.2-3.8 [facility] Comment on above: Performed By: #### C BC #### [facility] [address] [place] [address] Dr. Eusebia Moralez Lymphocytes/100 WBC (Bld) 19.9 % Critically low 20.5-60.0 [facility] Comment on above: Performed By: #### C BC #### [facility] [address] [place] [address] Dr. Eusebia Moralez MANUAL DIFF REQ NO Normal [facility] Comment on above: Performed By: #### C BC #### [facility] [address] [place] [address] Dr. Eusebia Moralez MCH (RBC) [Entitic mass] 29.1 pg Normal 26.7-34.0 [facility] Comment on above: Performed By: #### C BC #### [facility] [address] [place] [address] Dr. Eusebia Moralez MCHC (RBC) [Mass/Vol] 31.4 g/dL Normal 29.9-35.2 [facility] Comment on above: Performed By: #### C BC #### [facility] [address] [place] [address] Dr. Eusebia Moralez MCV (RBC) [Entitic vol] 92.9 fL Normal 81.0-99.0 [facility] Comment on above: Performed By: #### C BC #### [facility] [address] [place] [address] Dr. Eusebia Moralez MONO # 0.7 103/ul Normal 0.3-0.8 [facility] Comment on above: Performed By: #### C BC #### [facility] [address] [place] [address] Dr. Eusebia Moralez Monocytes/100 WBC (Bld) 9.4 % Normal 1.7-12.0 [facility] Comment on above: Performed By: #### C BC #### [facility] [address] [place] [address] Dr. Eusebia Moralez NEUT # 4.7 103/ul Normal 1.4-6.5 [facility] Comment on above: Performed By: #### C BC #### [facility] [address] [place] [address] Dr. Eusebia Moralez Neutrophils/100 WBC (Bld) 67.6 % Normal 43.0-75.0 [facility] Comment on above: Performed By: #### C BC #### [facility] [address] [place] [address] Dr. Eusebia Moralez Platelet mean volume (Bld) [Entitic vol] 9.9 fL Normal 9.5-13.5 [facility] Comment on above: Performed By: #### C BC #### [facility] [address] [place] [address] Dr. Eusebia Moralez PLT 218 103/ul Normal 150-450 [facility] Comment on above: Performed By: #### C BC #### [facility] [address] [place] [address] Dr. Eusebia Moralez RBC 4.36 106/ul Normal 4.20-5.40 [facility] Comment on above: Performed By: #### C BC #### [facility] [address] [place] [address] Dr. Eusebia Moralez WBC 6.9 103/ul Normal 4.0-11.0 [facility] Comment on above: Performed By: #### C BC #### [facility] [address] [place] [address] Dr. Eusebia Moralez PROF CHEM 8 (BAS METB)on Anion gap [Moles/Vol] 9.0 mmol/L Normal [facility] Comment on above: Performed By: #### B MP #### [facility] [address] [place] [address] Dr. Eusebia Moralez Calcium [Mass/Vol] 9.2 mg/dL Normal 8.5-10.1 [facility] Comment on above: Performed By: #### B MP #### [facility] [address] [place] [address] Dr. Eusebia Moralez Chloride [Moles/Vol] 103 mmol/L Normal 98-107 [facility] Comment on above: Performed By: #### B MP #### [facility] [address] [place] [address] Dr. Eusebia Moralez CO2 [Moles/Vol] 32.9 mmol/L Critically high 21.0-32.0 [facility] Comment on above: Performed By: #### B MP #### [facility] [address] [address] [address] Eusebia Moralez Creatinine [Mass/Vol] 1.74 mg/dL Critically high 0.55-1.02 [facility] Comment on above: Performed By: #### B MP #### [facility] [address] [address] [address] Eusebia Moralez EGFR-AF MALIAN 35 mL/min/1.73m2 Critically low >=60 [facility] Comment on above: Performed By: #### B MP #### [facility] [address] [address] [address] Eusebia Moralez EGFR-NON AF MALIAN 29 mL/min/1.73m2 Critically low >=60 [facility] Comment on above: Performed By: #### B MP #### [facility] [address] [address] [address] Eusebia Moralez Glucose [Mass/Vol] 101 mg/dL Normal 74-106 [facility] Comment on above: Performed By: #### B MP #### [facility] [address] [address] [address] Eusebia Moralez Potassium [Moles/Vol] 3.9 mmol/L Normal 3.5-5.1 [facility] Comment on above: Performed By: #### B MP #### [facility] [address] [address] [address] Eusebia Moralez Sodium [Moles/Vol] 141 mmol/L Normal 136-145 [facility] Comment on above: Performed By: #### B MP #### [facility] [address] [address] [address] Eusebia Moralez Urea nitrogen [Mass/Vol] 34.0 mg/dL Critically high 7.0-18.0 [facility] Comment on above: Performed By: #### B MP #### [facility] [address] [address] [address] Eusebia Moralez Urea nitrogen/Creatinin e [Mass ratio] 19.5 mg/mg Normal [facility] Comment on above: Performed By: #### B MP #### [facility] [address] [address] [address] Eusebia Moralez CBC AUTO DIFFon 07-02-2022 BASO # 0.1 103/ul Normal 0.0-0.1 [facility] Comment on above: Performed By: #### C BC ####[facility] [address] [address]DrRadha Moralez Basophils/100 WBC (Bld) 0.7 % Normal 0.2-2.0 [facility] Comment on above: Performed By: #### C BC ####[facility] [address] [place], [place] [address]Dr. Eusebia Moralez EO # 0.1 103/ul Normal 0.0-0.7 [facility] Comment on above: Performed By: #### C BC ####[facility] [address] [place], [place] [address]Dr. Eusebia Moralez Eosinophils/100 WBC (Bld) 1.8 % Normal 0.9-7.0 [facility] Comment on above: Performed By: #### C BC ####[facility] [address] [place], [place] [address]Dr. Eusebia Moralez Erythrocyte distribution width (RBC) [Ratio] 13.1 % Normal 11.0-15.0 [facility] Comment on above: Performed By: #### C BC ####[facility] [address] [place], [place] [address]Dr. Eusebia Moralez Hematocrit (Bld) [Volume fraction] 40.2 % Normal 36.0-48.0 [facility] Comment on above: Performed By: #### C BC ####[facility] [address] [place], [place] [address]DrRadha Moralez Hemoglobin (Bld) [Mass/Vol] 12.5 g/dL Normal 12.0-16.0 [facility] Comment on above: Performed By: #### C BC ####[facility] [address] [place], [place] [address]Dr. Eusebia Moralez IG # 0.01 10e3/ul Normal 0.00-0.03 [facility] Comment on above: Performed By: #### C BC ####[facility] [address] [id number] Eusebia Moralez IG % 0.1 % Normal 0.0-0.5 [facility] Comment on above: Performed By: #### C BC ####[facility] [address] [address]DrRadha Eusebia Kirt LYMPH # 1.5 103/ul Normal 1.2-3.8 [facility] Comment on above: Performed By: #### C BC ####[facility] [address] [address]DrRadha uEsebia Kirt Lymphocytes/100 WBC (Bld) 22.6 % Normal 20.5-60.0 [facility] Comment on above: Performed By: #### C BC ####[facility] [address] [place], [place] [address]DrRadha Eusebia Kirt MANUAL DIFF REQ NO Normal [facility] Comment on above: Performed By: #### C BC ####[facility] [address] [id number] Eusebia Kirt MCH (RBC) [Entitic mass] 29.3 pg Normal 26.7-34.0 [facility] Comment on above: Performed By: #### C BC ####[facility] [address] [id number] Eusebia Kirt MCHC (RBC) [Mass/Vol] 31.1 g/dL Normal 29.9-35.2 [facility] Comment on above: Performed By: #### C BC ####[facility] [address] [id number] Eusebia Kirt MCV (RBC) [Entitic vol] 94.4 fL Normal 81.0-99.0 [facility] Comment on above: Performed By: #### C BC ####[facility] [address] [place], [place] [address]DrRadha Lisadenise Moralez MONO # 0.6 103/ul Normal 0.3-0.8 [facility] Comment on above: Performed By: #### C BC ####[facility] [address] [address]Dr. Eusebia Moralez Monocytes/100 WBC (Bld) 9.1 % Normal 1.7-12.0 [facility] Comment on above: Performed By: #### C BC ####[facility] [address] [address]Dr. Eusebia Moralez NEUT # 4.4 103/ul Normal 1.4-6.5 [facility] Comment on above: Performed By: #### C BC ####[facility] [address] [address]Dr. Eusebia Moralez Neutrophils/100 WBC (Bld) 65.7 % Normal 43.0-75.0 [facility] Comment on above: Performed By: #### C BC ####[facility] [address] [place], [place] [address]Dr. Eusebia Moralez Platelet mean volume (Bld) [Entitic vol] 9.6 fL Normal 9.5-13.5 [facility] Comment on above: Performed By: #### C BC ####[facility] [address] [place], [place] [address]Dr. Eusebia Moralez PLT 204 103/ul Normal 150-450 [facility] Comment on above: Performed By: #### C BC ####[facility] [address] [place], [place] [address]Dr. Eusebia Moralez RBC 4.26 106/ul Normal 4.20-5.40 [facility] Comment on above: Performed By: #### C BC ####[facility] [address] [address]Dr. Eusebia Moralez WBC 6.7 103/ul Normal 4.0-11.0 [facility] Comment on above: Performed By: #### C BC ####[facility] [address] [address]DrRadha Lisadenise Moralez PROF CHEM 8 (BAS METB)on Anion gap [Moles/Vol] 11.2 mmol/L Normal [facility] Comment on above: Performed By: #### B MP ####[facility] [address] [address]Dr. Eusebia Moralez Calcium [Mass/Vol] 9.2 mg/dL Normal 8.5-10.1 [facility] Comment on above: Performed By: #### B MP ####[facility] [address] [place], [place] [address]Dr. Eusebia Moralez Chloride [Moles/Vol] 109 mmol/L Critically high 98-107 [facility] Comment on above: Performed By: #### B MP ####[facility] [address] [place], [place] [address]Dr. Eusebia Moralez CO2 [Moles/Vol] 27.6 mmol/L Normal 21.0-32.0 [facility] Comment on above: Performed By: #### B MP ####[facility] [address] [place], [place] [address]Dr. Eusebia Moralez Creatinine [Mass/Vol] 1.49 mg/dL Critically high 0.55-1.02 [facility] Comment on above: Performed By: #### B MP ####[facility] [address] [place], [place] [address]Dr. Eusebia Moralez EGFR-AF MALIAN 42 mL/min/1.73m2 Critically low >=60 [facility] Comment on above: Performed By: #### B MP ####[facility] [address] [place], [place] [address]Dr. Eusebia Moralez EGFR-NON AF MALIAN 34 mL/min/1.73m2 Critically low >=60 [facility] Comment on above: Performed By: #### B MP ####[facility] [address] [place], [place] [address]Dr. Eusebia Moralez Glucose [Mass/Vol] 89 mg/dL Normal 74-106 [facility] Comment on above: Performed By: #### B MP ####[facility] [address] [place], [place] [address]Dr. Eusebia Moralez Potassium [Moles/Vol] 4.8 mmol/L Normal 3.5-5.1 [facility] Comment on above: Performed By: #### B MP ####[facility] [address] [id number]. Eusebia Moralez Sodium [Moles/Vol] 143 mmol/L Normal 136-145 [facility] Comment on above: Performed By: #### B MP ####[facility] [address] [id number]. Eusebia Moralez Urea nitrogen [Mass/Vol] 27.0 mg/dL Critically high 7.0-18.0 [facility] Comment on above: Performed By: #### B MP ####[facility] [address] [address]Dr. Eusebia Moralez Urea nitrogen/Creatinin e [Mass ratio] 18.1 mg/mg Normal [facility] Comment on above: Performed By: #### B MP ####[facility] [address] [id number]. Eusebia Moralez Orders Onlyon 06-29-2022 Orders Only [id number] Brian Sadler se 1950 F Date Provider Department Center 06/29/2022 RAYMOND BACON [facility] Family History Problem Relation Age of Onset Other Mother Coronary artery disease Mother Other Mother Other Mother Other Father Hypertension Father Hyperlipidemia Father Other Daughter Family Status - Relation Status Age at Mother Father Daughter [facility] 3605-24-2022 36 Noted. Thank you. Normal [facility] 36on 05-19-2022 36 Medication has been resent to pharmacy. Normal [facility] Follow-Upon 05-19-2022 Follow-Up [id number] Brian Sadler se 1950 F Date Provider Department Center 05/19/2022 JOSE ANGEL LEE MP PAIN Medical [facility]avi Family History Problem Relation Age of Onset Other Mother Coronary artery disease Mother Other Mother Other Mother Other Father Hypertension Father Hyperlipidemia Father Other Daughter Family Status - Relation Status Age at Mother Father Daughter Level of Service:97445 MO POSTOP FOLLOW UP VISIT RELATED TO ORIGINAL PX [facility] Office Visiton 05-19-2022 Follow-up visit [id number] Brian Sadler se M 1950 Provider Department Center 05/19/2022 TIAN BRADSHAW CCC NEPHRO Comprehensiv Family History Problem Relation Age of Onset Other Mother Coronary artery disease Mother Other Mother Other Mother Other Father Hypertension Father Hyperlipidemia Father Other Daughter Family Status - Relation Status Age at Mother Father Daughter Level of Service:10618 MO OFFICE/OUTPATIENT ESTABLISHED MOD MDM 30-39 MIN Reason for Visit and Comments: Follow-up [330320] - 1 month follow up [facility] HPon 05-11-2022 HP H&P reviewed. The patient was examined and there are no changes to the H&P. [facility] Orders Onlyon 05-11-2022 Orders Only [id number] Brian Sadler se 1950 Provider Department Center 05/11/2022 JOSE ANGEL LEE PAIN Medical [facility] Family History Problem Relation Age of Onset Other Mother Coronary artery disease Mother Other Mother Other Mother Other Father Hypertension Father Hyperlipidemia Father Other Daughter Family Status - Relation Status Age at Mother Father Daughter [facility] POCT GLUCOSE METER UNSOLICIT ED RESULTSon 05-11-2022 Glucose [Mass/Vol] 101 mg/dL Normal 70-105 [facility] Comment on above: Result Comment: [facility] Performed By: #### L [id number] ####[facility] (BEAKER)[address] [place] [address] [id number] 04-29-2022 [id number] No outpatient medications have been marked as taking for the 05/11/22 encounter (Hospital Encounter). Additional Instructions: NPO AFTER MIDNIGHT. MUST HAVE A SALES SYSTEMS ENGINEER TO TAKE YOU HOME AND SOMEONE TO STAY FOR 24 HOURS AFTER SURGERY. NO JEWELRY OR VALUABLES. HOLD THE MEDS WE SPOKE ABOUT:ASA , VOLTAREN, VITAMINS X 7 DAYS PRIOR TO OR. BUMEX X 24 HOURS PRIOR TO OR. TAKE THE MEDS WE SPOKE ABOUT WITH A SIP OF WATER DOS:PT STATES CANNOT TAKE ANY PILLS ON EMPTY STOMACH. WILL TAKE NO MEDS DOS. BRING INSURANCE CARD AND PHOTO ID AND MED LIST. Normal [facility] Labon 04-24-2022 Lab [id number] Brian Sadler se M 1950 Date Provider Department Center 04/24/2022 2243-[facility] D[facility] LAB RESOURCE DCC Draw DCC Family History Problem Relation Age of Onset Other Mother Coronary artery disease Mother Other Mother Other Mother Other Father Hypertension Father Hyperlipidemia Father Other Daughter Family Status - Relation Status Age at Mother Father Daughter Normal [facility] MRSA/MSSA DNA NASALon 2022 MRSA DNA Negative Normal Negative, Invalid [facility] Comment on above: Performed By: #### L [id number] ####[facility] (BEAKER)[address] [place] [address] MSSA DNA Negative Normal Negative, Invalid [facility] Comment on above: Performed By: #### L [id number] ####[facility] (BEAKER)[address] [place] [address] Office Visiton 04-24-2022 Follow-up visit [id number] Brian Sadler se 1950 Provider Department Center 04/24/2022 241-IRVIN KWOK HVC CARD [facility] Family History Problem Relation Age of Onset Other Mother Coronary artery disease Mother Other Mother Other Mother Other Father Hypertension Father Hyperlipidemia Father Other Daughter Family Status - Relation Status Age at Mother Father Daughter Level of Service:56481 MO OFFICE/OUTPATIENT NEW HIGH MDM 60-74 MINUTES Reason for Visit and Comments: Follow-up [288314] - Patient referred to assess abnormal heart rhythms. Dizziness [[id number]] Normal [facility] PHOSPHORUSon 04-24-2022 Magnesium [Mass/Vol] 2.9 mg/dL Normal 2.5-5.[address] [facility] Comment on above: Performed By: #### L [id number] #### [facility] ([facility]ER) [address] [place] [address] PROTIME-INRon 04-24-2022 INR IN PPP BY COAGULATION ASSAY 1.02 Normal 0.90-1.[address] [facility] Comment on above: Result Comment: [facility] P RECOMMENDED INR FOR [facility] THERAPY CONDITION INR PROPHYLAXIS OF VENOUS THROMBOSIS 2-3 (HIGH-RISK SURGERY) TREATMENT OF VENOUS THROMBOSIS 2-3 TREATMENT OF PULMONARY EMBOLISM 2-3 PREVENTION OF SYSTEMIC EMBOLISM: 2-3 ACUTE MYOCARDIAL INFARCTION TISSUE HEART VALVES VALVULAR HEART DISEASE ATRIAL FIBRILLATION RECURRENT SYSTEMIC EMBOLISM MECHANICAL HEART VALVE 2.5-3.5 FROM: ORAL ANTICOAGULANTS. MECHANISM OF ACTION, CLINICAL EFFECTIVENESS, AND OPTIMAL THERAPEUTIC RANGE. CHEST 1995;108:231S-246S. Performed By: #### L [id number] #### [facility] [employer] [facility]) [address] [place] [address] PROTHROMBIN TIME (PT) IN PPP BY COAGULATION ASSAY 13.4 Seconds Normal 12.3-14.[address] [facility] Comment on above: Performed By: #### L [id number] #### [facility] [employer] [facility]) [address] [place] [address] PTH, INTACTon 04-24-2022 PARATHYRIN INTACT (PG/ML) IN SER/PLAS 80 pg/mL Normal 12-[address] [facility] Comment on above: Performed By: #### L [id number] #### [facility] ([facility]) [address] [place] [address] VITAMIN D 25 HYDROXYon 04-24 CALCIDIOL (25 [place] VITAMIN D3) (NG/ML) IN SER/PLAS 32.6 ng/mL Normal 30.0-80.[address] [facility] Comment on above: Result Comment: >80. 0 Toxicity possible Performed By: #### L [id number] #### [facility] [employer] [facility]) [address] [place] [address] 29on 04-21-2022 29 Addended by: FARNAZ DIXON on: 04/22/2022 07:01 PM Modules accepted: SmartSet Normal [facility] 29 Addended by: FARNAZ DIXON on: 04/23/2022 05:16 PM Modules accepted: [facility] 29 Addended by: FARNAZ DIXON on: 04/23/2022 04:59 PM Modules accepted: [facility] Normal [facility] BASIC METABOLIC PANELon 02-0 Anion gap [Moles/Vol] 6 mmol/L Low 7-[address] [facility] Comment on above: Performed By: #### L [id number] #### [facility] ([facility]) [address] [place] [address] Calcium [Mass/Vol] 9.3 mg/dL Normal 8.6-10.3 [facility] Comment on above: Performed By: #### L [id number] #### [facility] ([facility]) [address] [place] [address] Chloride [Moles/Vol] 107 mmol/L Normal 98-[address] [facility] Comment on above: Performed By: #### L [id number] #### [facility] ([facility] [address] [place] [address] CO2 [Moles/Vol] 27 mmol/L Normal 21-[address] [facility] Comment on above: Performed By: #### L [id number] #### [facility] ([facility]) [address] [place] [address] Creatinine [Mass/Vol] 1.78 mg/dL High 0.60-1.[address] [facility] Comment on above: Performed By: #### L [id number] #### [facility] ([facility]) [address] [place] [address] GLOMERULAR FILTRATION RATE ML/MIN/1.73 SQ M.PREDICTED 28.3 mL/min/1.73m*2 Low >60.0 [facility] Comment on above: Result Comment: The [facility]???s estimated glomerular filtration rate (eGFR) will no longer include consideration of race in its calculation. The National Kid[employer] Foundation???s eGFR Task Force developed new recommendations for the estimation of the glomerular filtration rate in the [place] They recommend immediate implementation of the new equation refit without the race variable in all laboratories because the calculation does not include race. In addition to not including race in the calculation and reporting, it included diversity in its development, and has acceptable performance characteristics and potential consequences that do not disproportionately affect any one group of individuals. Performed By: #### L [id number] #### [facility] ([facility]) [address] [place] [address] Glucose [Mass/Vol] 99 mg/dL Normal 70-100 [facility] Comment on above: Performed By: #### L [id number] #### [facility] ([facility]) [address] [place] [address] Potassium [Moles/Vol] 5.5 mmol/L High 3.5-5.[address] [facility] Comment on above: Performed By: #### L [id number] #### [facility] ([facility]) [address] [place] [address] Sodium [Moles/Vol] 140 mmol/L Normal 136-145 [facility] Comment on above: Performed By: #### L [id number] #### [facility] ([facility]) [address] [place] [address] Urea nitrogen [Mass/Vol] 32 mg/dL High 7-[address] [facility] Comment on above: Performed By: #### L [id number] #### [facility] ([facility]) [address] [place] [address] UREA NITROGEN/CREATININ E (MASS RATIO) IN SER/PLAS 17.[address] [facility] Comment on above: Performed By: #### L [id number] #### [facility] ([facility]) [address] [place] [address] CBCon 04-21-2022 Erythrocyte distribution width (RBC) [Ratio] 13.7 % Normal 11.5-15.[address] [facility] Comment on above: Performed By: #### L [id number] #### [facility] ([facility]) [address] [place] [address] ERYTHROCYTE MEAN CORPUSCULAR HEMOGLOBIN CONCENTRATION (G/DL) BY AUTOMATED 31.0 g/dL Low 32.0-35.[address] [facility] Comment on above: Performed By: #### L [id number] #### [facility] ([facility]) [address] [place] [address] Hematocrit (Bld) [Volume fraction] 41.3 % Normal 36.0-48.[address] [facility] Comment on above: Performed By: #### L [id number] #### [facility] ([facility]) [address] [place] [address] Hemoglobin (Bld) [Mass/Vol] 12.8 g/dL Normal 12.0-15.[address] [facility] Comment on above: Performed By: #### L [id number] #### [facility] ([facility]) [address] [place] [address] MCH (RBC) [Entitic mass] 29.6 pg Normal 27.0-33.[address] [facility] Comment on above: Performed By: #### L [id number] #### [facility] ([facility]) [address] [place] [address] MCV (RBC) [Entitic vol] 95.4 fL Normal 82.0-98.[address] [facility] Comment on above: Performed By: #### L [id number] #### [facility] ([facility]) [address] [place] [address] PLATELETS (10*3/UL) IN BLOOD AUTOMATED COUNT 224 10*3/uL Normal 150-[address] [facility] Comment on above: Performed By: #### L [id number] #### [facility] ([facility]) [address] [place] [address] RBC (Bld) [#/Vol] 4.33 10*6/uL Normal 3.80-5.00 [facility] Comment on above: Performed By: #### L [id number] #### [facility] ([facility]) [address] [place] [address] WBC (Bld) [#/Vol] 8.45 10*3/uL Normal 4.00-10.60 [facility] Comment on above: Performed By: #### L [id number] #### [facility] ([facility]) [address] [place] [address] CREATININE, URINE, RANDOMon 04-21-2022 Creatinine (U) [Mass/Vol] 374.0 mg/dL High 26-[address] [facility] Comment on above: Performed By: #### L [id number] #### [facility] ([facility]) [address] [place] [address] Follow-Upon 04-21-2022 Follow-Up [id number] Brian Sadler se 1950 F Date Provider Department [place] 04/21/2022 JOSE ANGEL LEE MP [facility] Family History Problem Relation Age of Onset Other Mother Coronary artery disease Mother Other Mother Other Mother Other Father Hypertension Father Hyperlipidemia Father Other Daughter Family Status - Relation Status Age at Mother Father Daughter Level of Service:45196 MO OFFICE/OUTPATIENT ESTABLISHED HIGH MDM 40-54 MIN Reason for Visit and Comments: Follow-up [071185] - S/P RFA Normal [facility] HPon 04-21-2022 [facility] Interventional Pain Management SUBJECTIVE: Subjective 04/21/22 CC: Chief Complaint Patient presents with Follow-up S/P RFA Pain Assessment Pain Assessment: 0-10 Pain Score: 7 Pain Type: Chronic pain Pain Location: Back Pain Orientation: Lower Pain Descriptors: Aching, Throbbing, Stabbing, Sharp Pain Frequency: Constant/continuous Pain Onset: Ongoing Clinical Progression: Gradually worsening Aggravating Factors: Standing, Walking Pain Interventions: Rest, Other (Comment) (Sitting and lying down) 72 year old female here to follow up 04/01/22 - Bilateral radiofrequency ablation L3-4 and L4-5. Patient states that she did not have significant pain relief since procedure. She is still having significant back pain that she states has worsened. Her leg pain has improved and has not worsened since procedure. She states that the back pain is spread out through the entire lumbar region. She describes the pain as sharp, shooting, aching, throbbing. She states that the pain is worse with standing and walking, and that she is still having to use her walker more than she would like. She states that she will have significant pain after 5 to 10 minutes of standing. The pain is better with rest, sitting, laying down. Reports no pain while sitting, flexing forward or being in a recumbent position. Denies any new onset numbness, weakness, incontinence. Per prior note: This is a 72 year old female returning to follow up after procedure LESI L4-5. The patient reports pain has been improved by 50% in the low back and over 80% in the legs. Primary pain complaint localized low back pain. This is persistent at rest but does worsen with standing and walking. Pain subsides slightly with sitting or forward flexion. Patient does use a walker Per prior note: Referral Source: Marta Yeung CNP (Neurosurgery) CC: low back pain The patient is a 71 year old female who presents with a chief complaint of low back pain. Pain is located in the low back and radiates to the feet. The patient has had this pain for years. The initiating event was reported as progressively worsening slowly over years Since starting, the symptoms have worsened. The pain quality is sharp, stabbing, burning, throbbing. The pain is constant. Today, the pain intensity is rated as a 7 on a scale of 0-10. Patient reports associated symptoms of numbness, tingling down legs to feet; Alleviated with sitting, lying; Exacerbated with prolonged standing, walking; interfere with ADLs of physical activity, work, walking, social activity. Patient unable to stand for more than a couple minutes before needing to sit or flex forward. Sitting or flexing forward almost completely alleviates pain symptoms. Patient is unable to lay flat in bed and has to sleep in a recliner. Past History of Treatments: Patient has tried other professional care of PT, pain management, Dr. Oleary at [facility], in past. Has had 3 injections, including radiofrequency ablation, with minimal relief Trialed medications: diclofenac Procedures performed previously: lumbar MBB/RFA 11/21/21 - interlaminar lumbar epidural at L4-5 over 80% relief of radicular symptoms, and 50% relief of low back pain 02/18/22 - bilateral lumbar medial branch block L3-4 and L4-5 80% relief for the duration of the local 03/04/22 - bilateral lumbar medial branch block L4-5 and L5-S1 80% relief for the duration of the local 04/01/22 - Bilateral radiofrequency ablation L3-4 and L4-5 no significant relief Imagin01/30/22 XR Lumbar Spine: Advancing multilevel osteoarthritis 10/10/21- lumbar MRI - L1-2 normal, L2-3 moderate CCS, mild left NFN, moderate disc bulge, L3-4 moderate CCS, mild bl NFN, mild disc bulge, mild facet OA, L4-5 moderate CCS, right foraminal narrowing, mild left foraminal narrowing, moderate facet OA, L5-S1 moderate left and mild right foraminal narrowing, mo CCS, mild bulge and facet OA Problem List: Patient Active Problem List Diagnosis Chest pain Dyspnea Edema Essential hypertension Fatigue Lightheadedness Spinal stenosis of lumbar region with neurogenic claudication Lower abdominal pain Spondylosis of lumbosacral region without myelopathy or radiculopathy A-fib ([facility]) Past Medical History: Past Medical History: Diagnosis Date COPD (chronic obstructive pulmonary disease) ([facility]) Hypertension Past Surgical History: Past Surgical History: Procedure Laterality Date CARDIAC CATHETERIZATION EYE SURGERY FOOT SURGERY HYSTERECTOMY Medications: Current Outpatient Medications: albuterol 90 mcg/actuation inhaler, albuterol sulfate HFA 90 mcg/actuation aerosol inhaler INHALE 2 PUFFS BY MOUTH EVERY 4 HOURS NEEDED FOR SHORTNESS OF BREATH, Disp: , Rfl: amLODIPine (Norvasc) 5 mg tablet, Take 1 tablet (5 mg) by mouth in the morning., Disp: 90 tablet, Rfl: 3 aspirin 81 mg EC tablet, Take 81 mg b (more content not included)... Normal [facility] Labon 04-21-2022 Lab [id number] Brian Sadler se 1950 F Date Provider Department [place] 04/21/20222241-[facility] RES[facility] Comprehensiv Family History Problem Relation Age of Onset Other Mother Coronary artery disease Mother Other Mother Other Mother Other Father Hypertension Father Hyperlipidemia Father Other Daughter Family Status - Relation Status Age at Mother Father Daughter Normal [facility] MICROALBUMIN, URINE, RANDOMo n 04-21-2022 Albumin DL <= 20 mg/L (U) [Mass/Vol] 20 mg/dL Normal [facility] Comment on above: Performed By: #### L [id number] #### [facility] ([facility]) [address] [place] [address] MICROALBUMIN/CREAT ININE (MG/G) IN URINE 53.5 mg/g Creat High 0.0-30.[address] [facility] Comment on above: Performed By: #### L [id number] #### [facility] ([facility]) [address] [place] [address] Office [place] 04-21-2022 Follow-up visit [id number] Brian Sadler se 1950 F Date Provider Department [facility] 04/21/2022 [id number] KIRAN [facility]PHRO Comprehensiv Family History Problem Relation Age of Onset Other Mother Coronary artery disease Mother Other Mother Other Mother Other Father Hypertension Father Hyperlipidemia Father Other Daughter Family Status - Relation Status Age at Mother Father Daughter Level of Service:60745 MO OFFICE/OUTPATIENT NEW LOW MDM 30-44 MINUTES Reason for Visit and Comments: New Patient [632] Normal [facility] PROTEIN, URINE, RANDOMon Protein (U) [Mass/Vol] 59.9 mg/dL Normal [facility] Comment on above: Result Comment: Ther e are no established reference values for random urine specimens. Performed By: #### L [id number] #### [facility] ([facility]) [address] [place] [address] CT LUNG CANCER SCREENINGon 1 04-27-2021 CT LUNG CANCER SCREENING EXAMINATION: CT LUNG CANCER SCREENING HISTORY: Nicotine dependence COMPARISON: CT chest 03/07/2021 TECHNIQUE: Axial, Coronal, and Sagittal images were created without the administration of IV contrast material. Dose reduction techniques were achieved by using automated exposure control and/or adjustment of mA and/or kV according to patient size and/or use of iterative reconstruction technique. FINDINGS: LUNGS: New collection of 2-3 mm nodules versus atypical infiltrates within the anterior lateral right upper lobe adjacent the minor fissure. PLEURA: No mass, effusion, or pneumothorax. VASCULATURE: No abnormality. ERON: No mass or pathologic adenopathy. MEDIASTINUM: No mass or pathologic adenopathy. CARDIAC: No enlargement, pericardial thickening, or significant calcification. AORTA: No aneurysm or dissection. CHEST WALL: No mass or axillary adenopathy BONES: No bone lesion or fracture. LIMITED ABDOMEN: No suspicious findings. Limited images of the upper abdomen. OTHER: Negative. IMPRESSION: 1. Lung-RADS Category 3- Probably benign. Probably benign finding(s)- short term follow up suggested; includes nodules with a low likelihood of becoming a clinically active cancer. Six month LDCT. 2. Collection of new 2-3 mm nodules versus atypical infiltrate/pneumonia within the anterior lateral base of right upper lobe. Electronically authenticated by: AMBAR MAYA Date: 2022-02-24 08:15 Normal [facility] PROF CHEM 8 (BAS METB)on Anion gap [Moles/Vol] 9.7 mmol/L Normal [facility] Comment on above: Performed By: #### B MP #### [facility] [address] [address] [address] Eusebia Moralez Calcium [Mass/Vol] 8.8 mg/dL Normal 8.5-10.1 [facility] Comment on above: Performed By: #### B MP #### [facility] [address] [address] [address] Eusebia Moralez Chloride [Moles/Vol] 107 mmol/L Normal 98-107 [facility] Comment on above: Performed By: #### B MP #### [facility] [address] [address] [address] Eusebia Moralez CO2 [Moles/Vol] 29.5 mmol/L Normal 21.0-32.0 [facility] Comment on above: Performed By: #### B MP #### [facility] [address] [address] [address] Eusebia Moralez Creatinine [Mass/Vol] 1.83 mg/dL Critically high 0.55-1.02 [facility] Comment on above: Performed By: #### B MP #### [facility] [address] [address] [address] Eusebia Moralez EGFR-AF MALIAN 33 mL/min/1.73m2 Critically low >=60 [facility] Comment on above: Performed By: #### B MP #### [facility] [address] [address] [address] Eusebia Moralez EGFR-NON AF MALIAN 27 mL/min/1.73m2 Critically low >=60 [facility] Comment on above: Performed By: #### B MP #### [facility] [address] [address] [address] Eusebia Moralez Glucose [Mass/Vol] 87 mg/dL Normal 74-106 [facility] Comment on above: Performed By: #### B MP #### [facility] [address] [address] [address] Eusebia Moralez Potassium [Moles/Vol] 5.2 mmol/L Critically high 3.5-5.1 [facility] Comment on above: Performed By: #### B MP #### [facility] [address] [address] [address] Eusebia Moralez Sodium [Moles/Vol] 141 mmol/L Normal 136-145 [facility] Comment on above: Performed By: #### B MP #### [facility] [address] [address] [address] Eusebia Moralez Urea nitrogen [Mass/Vol] 37.0 mg/dL Critically high 7.0-18.0 [facility] Comment on above: Performed By: #### B MP #### [facility] [address] [address] [address] Eusebia Moralez Urea nitrogen/Creatinin e [Mass ratio] 20.2 mg/mg Normal [facility] Comment on above: Performed By: #### B MP #### [facility] [id number] Eusebia Moralez NM STRESS/REST MULTIon 01-23 NM STRESS/REST MULTI Patient: VERO SADLER Exam Date: 01/23/2022 : 1950 Gender:F Ordering : DR DEBBIE BHATIA . Admission #: [id number] Family : Order #: [id number] CLICK HERE TO VIEW EXAM RADIOLOGY REPORT PROCEDURE: RADIONUCLIDE IMAGING STRESS/REST MULTI COMPARISON: NM STRESS/REST MULTI, 03/11/2020. NM STRESS/REST MULTI, 06/30/2018. INDICATIONS: Palpitations, shortness of breath, chest pain TECHNIQUE: Exam Description: Stress/Rest two day protocol gated SPECT Rest Imagin.9 mCi Tc-99m Cardiolite IV on 01/23/2022 Stress Imaging 26.1 mCi Tc-99m Cardiolite IV on 01/23/2022 Exercise Protocol: 0.4 mg Lexiscan given IV Heart Rate (bpm): Rest: 49 Max: 62 PMHR: 41 Blood Pressure: Rest: 162/82 Max: 162/82 Symptoms: Rest and peak stress ECG findings were normal and the exercise portion of the study was normal per attending physician Dr. Salmeron . For more details please see separate cardiac stress test report. FINDINGS: QUALITY OF STUDY: PERFUSION DEFECT: LOCATION: Mid-anterior. Apical anterior. SIZE: Small (1-2 segments). SEVERITY: Moderate. TYPE: Persistent. WALL MOTION: Normal. LV SIZE: Enlarged; EDV 137 mL. TID / TCD: None; 1.0 LVEF: Normal. Calculated EF 69%. SUMMARY: Myocardial perfusion imaging study has ABNORMAL findings. CONCLUSION: 1. Moderate size moderate severity fixed defect in the anterior wall, LAD distribution 2. No reversible ischemia 3. Dilated left ventricle, end-diastolic volume 137 milliliters 4. Normal exercise test Dictated by: Raji Canchola MD on 01/26/2022 at 13:43 Approved by: Raji Canchola MD on 01/26/2022 at 13:45 Normal [facility] ECHOCARDIO M/2D COMPLETEon 1 03-23-2021 ECHOCARDIO M/2D COMPLETE Patient: VERO SADLER Exam Date: 01/21/2022 : 1950 Gender:F Ordering : DR DEBBIE BHATIA . Admission #: [id number] Family : Order #: [id number] CLICK HERE TO VIEW EXAM ECHOCARDIOGRAM REPORT PROCEDURE: CARDIO PULMONARY ECHOCARDIO M/2D COMP INDICATIONS: Palpitations COMPARISON: None. DESCRIPTION: COMPLETE ECHOCARDIOGRAM Real-time transthoracic echocardiography with 2D, M-mode, spectral and color flow Doppler performed. QUALITY: Technical quality was adequate. LEFT VENTRICLE: Normal chamber size. Moderate concentric left ventricular hypertrophy. LV EF: Global left ventricular systolic function is normal. Visual estimation of left ventricular ejection fraction is 60% DIASTOLIC: Diastolic function is indeterminate. ATRIAL SEPTUM: Inadequately seen LEFT ATRIUM: Moderate dilatation. RIGHT ATRIUM: Moderate dilatation. RIGHT VENTRICLE: Normal chamber size. Normal right ventricular systolic function. TRICUSPID VALVE: Normal mobility and thickness. No stenosis with trivial regurgitation. No evidence of pulmonary hypertension. RVSP 33mmHg MITRAL VALVE: Normal mobility and thickness. No mitral valve prolapse. No evidence of mitral valve stenosis. Trivial mitral regurgitation. AORTIC VALVE: Normal trileaflet appearance. Thickened aortic valve. Normal leaflet mobility. No evidence of aortic valve stenosis. No aortic regurgitation. AORTIC ROOT: Normal diameter and appearance. PULMONIC VALVE: Normal thickness and mobility. No stenosis. Trivial regurgitation. PERICARDIUM: No evidence of pericardial effusion. IVC: Collapses with inspirations. Normal size. CONCLUSION: Global left ventricular systolic function is normal; visually estimated ejection fraction is 60 to 65%. Moderate left ventricular hypertrophy. Diastolic function is indeterminate. Biatrial enlargement. The right ventricle is normal in size and systolic function. No significant valvular abnormalities. Adult Echocardiography Procedure Report Left Ventricle LVEDD (3.7 - 5.6 cm): 4.91 cm LVESD (2.2 - 4.0 cm): 3.21 cm LVIVS thickness (0.6 - 1.2 cm): 1.18 cm LVPW thickness (0.5 - 1.0 cm): 1.34 cm e': 0.11 m/s E - e': 9.05 LVOT Max Gradient: 3.42 mm[Hg] Peak Velocity (LVOT): 0.92 m/s LVOT Diameter 2.10 cm Left Ventricular Ejection Fraction: 63.53 %, 63.53 % Left Atrium LA Volume Index (2D A2C): 114.32 ml, 114.32 ml Left Atrium Systolic Dimension: 3.99 cm Mitral Valve MV E to A Ratio: 1.64 Mitral Valve A-Wave Peak Velocity: 0.61 m/s Mitral Valve E-Wave Peak Velocity: 1.00 m/s Right Ventricle RV Internal Diastolic Dimension: 3.68 cm Aorta AO Root Diam: 3.37 cm Ascending Ao Diam: 2.93 cm Aortic Valve AoV Area ([place]): 2.10 cm2, 2.10 cm2 Peak Velocity(Antegrade Flow): 1.53 m/s Peak Gradient(Antegrade Flow): 9.36 mm[Hg] Tricuspid Valve Peak Velocity (Regurgitant Flow): 2.76 m/s, 2.78 m/s, 2.57 m/s Peak Velocity: 0.88 m/s Pulmonic Valve Mean Gradient: 3.02 mm[Hg], 3.36 mm[Hg] Mean Velocity: 0.80 m/s, 0.86 m/s Peak Velocity: 1.28 m/s, 1.24 m/s Peak Gradient: 6.56 mm[Hg], 6.20 mm[Hg] Right Atrium Right Atrium Systolic Pressure: 62.13 ml, 62.13 ml Dictated by: Tato Salcido M.D. on 01/21/2022 at 09:11 Approved by: Tato Salcido M.D. on 01/21/2022 at 09:17 Normal [facility] XR DEXA BONE DENSITYon 01-21 XR DEXA BONE DENSITY EXAMINATION: XR DEXA BONE DENSITY, 01/21/2022 8:27 AM EST HISTORY: Senile osteoporosis COMPARISON: 03/29/2017 TECHNIQUE: Dual-energy X-ray absorptiometry (DEXA) bone density study performed for the axial skeleton. FINDINGS: Bone mineral density AP spine L1-L4 measures 1.066 g/sq cm. T score -0.9. WHO classification: Normal. Bone mineral density right femoral neck measures 0.609 g/sq cm. T score -3.1. WHO classification: Osteoporosis IMPRESSION: Osteoporosis. High fracture risk Electronically authenticated by: RAJI CANCHOLA Date: 2022-01-21 10:03 Normal [facility] BNPon 01-14-2022 Natriuretic peptide B (Bld) [Mass/Vol] 834.0 pg/mL Normal <=900.0 [facility] Comment on above: Performed By: #### T SH, BNP, CMP, T7, LIPID ####[facility] [address] [place], [place] [address]GhDr. Eusebia Moralez CBC AUTO DIFFon 01-14-2022 BASO # 0.0 103/ul Normal 0.0-0.1 [facility] Comment on above: Performed By: #### C BC #### [facility] [address] [place], [place] [address] Dr. Eusebia Moralez Basophils/100 WBC (Bld) 0.4 % Normal 0.2-2.0 [facility] Comment on above: Performed By: #### C BC #### [facility] [address] [place] [address] Dr. Eusebia Moralez EO # 0.1 103/ul Normal 0.0-0.7 [facility] Comment on above: Performed By: #### C BC #### [facility] [address] [place] [address] Dr. Eusebia Moralez Eosinophils/100 WBC (Bld) 1.1 % Normal 0.9-7.0 [facility] Comment on above: Performed By: #### C BC #### [facility] [address] [place] [address] Dr. Eusebia Moralez Erythrocyte distribution width (RBC) [Ratio] 15.0 % Normal 11.0-15.0 [facility] Comment on above: Performed By: #### C BC #### [facility] [address] [place] [address] Dr. Eusebia Moralez Hematocrit (Bld) [Volume fraction] 39.6 % Normal 36.0-48.0 [facility] Comment on above: Performed By: #### C BC #### [facility] [address] [place] [address] Dr. Eusebia Moralez Hemoglobin (Bld) [Mass/Vol] 12.4 g/dL Normal 12.0-16.0 [facility] Comment on above: Performed By: #### C BC #### [facility] [address] [place] [address] Dr. Eusebia Moralez IG # 0.02 10e3/ul Normal 0.00-0.03 [facility] Comment on above: Performed By: #### C BC #### [facility] [address] [place] [address] Dr. Eusebia Moralez IG % 0.3 % Normal 0.0-0.5 [facility] Comment on above: Performed By: #### C BC #### [facility] [address] [place] [address] Dr. Eusebia Moralez LYMPH # 1.3 103/ul Normal 1.2-3.8 [facility] Comment on above: Performed By: #### C BC #### [facility] [facility] [address] [place] [address] Dr. Eusebia Moralez Lymphocytes/100 WBC (Bld) 17.9 % Critically low 20.5-60.0 [facility] Comment on above: Performed By: #### C BC #### [facility] [address] [place] [address] Dr. Eusebia Moralez MANUAL DIFF REQ NO Normal [facility] Comment on above: Performed By: #### C BC #### [facility] [address] [place] [address] Dr. Eusebia Moralez MCH (RBC) [Entitic mass] 29.8 pg Normal 26.7-34.0 [facility] Comment on above: Performed By: #### C BC #### [facility] [address] [place] [address] Dr. Eusebia Moralez MCHC (RBC) [Mass/Vol] 31.3 g/dL Normal 29.9-35.2 [facility] Comment on above: Performed By: #### C BC #### [facility] [address] [place] [address] Dr. Eusebia Moralez MCV (RBC) [Entitic vol] 95.2 fL Normal 81.0-99.0 [facility] Comment on above: Performed By: #### C BC #### [facility] [address] [place] [address] Dr. Eusebia Moralez MONO # 0.5 103/ul Normal 0.3-0.8 [facility] Comment on above: Performed By: #### C BC #### [facility] [address] [place] [address] Dr. Eusebia Moralez Monocytes/100 WBC (Bld) 7.0 % Normal 1.7-12.0 [facility] Comment on above: Performed By: #### C BC #### [facility] [address] [place] [address] Dr. Eusebia Moralez NEUT # 5.2 103/ul Normal 1.4-6.5 [facility] Comment on above: Performed By: #### C BC #### [facility] [address] [address] [address] Eusebia Moralez Neutrophils/100 WBC (Bld) 73.3 % Normal 43.0-75.0 [facility] Comment on above: Performed By: #### C BC #### [facility] [address] [address] [address] Eusebia Moralez Platelet mean volume (Bld) [Entitic vol] 9.5 fL Normal 9.5-13.5 [facility] Comment on above: Performed By: #### C BC #### [facility] [address] [address] [address] Eusebia Moralez PLT 188 103/ul Normal 150-450 [facility] Comment on above: Performed By: #### C BC #### [facility] [address] [address] [address] Eusebia Moralez RBC 4.16 106/ul Critically low 4.20-5.40 [facility] Comment on above: Performed By: #### C BC #### [facility] [address] [address] [address] Eusebia Moralez WBC 7.0 103/ul Normal 4.0-11.0 [facility] Comment on above: Performed By: #### C BC #### [facility] [address] [address] [address] Eusebia Moralez FREE THYROXINE INDEX T7on FTI 2.45 Normal 1.30-4.50 [facility] Comment on above: Performed By: #### T SH, BNP, CMP, T7, LIPID ####[facility] [address] [id number]. Eusebia Moralez T3U 35.0 % Normal 30.0-39.0 [facility] Comment on above: Performed By: #### T SH, BNP, CMP, T7, LIPID ####[facility] [address] [id number]. Eusebia Moralez T4 [Mass/Vol] 7.00 ug/dL Normal 4.80-13.90 [facility] Comment on above: Performed By: #### T SH, BNP, CMP, T7, LIPID ####[facility] [address] [id number]. Eusebia Moralez IRONon 01-14-2022 Iron [Mass/Vol] 58.0 ug/dL Normal 50.0-170.0 [facility] Comment on above: Performed By: #### I MONIE #### [facility] [address] [place], [place] [address] Dr. Eusebia Moralez LIPID PROFILEon 01-14-2022 CHOL-HDL RATIO NORM SEE BELOW Normal [facility] Comment on above: Result Comment: 3.3 - 4.4 LOW RISK 4.4 - 7.1 AVERAGE RISK 7.1 - 11.0 MODERATE RISK >11.0 HIGH RISK Performed By: #### T SH, BNP, CMP, T7, LIPID ####[facility] [address] [address]DrRadha Moralez Cholesterol [Mass/Vol] 186 mg/dL Normal <=200 [facility] Comment on above: Performed By: #### T SH, BNP, CMP, T7, LIPID ####[facility] [address] [place] [address]Dr. Eusebia Moralez Cholesterol in HDL [Mass/Vol] 45 mg/dL Normal 40-60 [facility] Comment on above: Performed By: #### T SH, BNP, CMP, T7, LIPID ####[facility] [address] [place] [id number] Moralez Cholesterol in LDL [Mass/Vol] 118.4 mg/dL Normal [facility] Comment on above: Performed By: #### T SH, BNP, CMP, T7, LIPID ####[facility] [address] [place] [id number]. Eusebia Moralez Cholesterol.total/ Cholesterol in HDL [Mass ratio] 4.1 {ratio} Normal [facility] Comment on above: Performed By: #### T SH, BNP, CMP, T7, LIPID ####[facility] [address] [address]Dr. Eusebia Moralez HDL NORMAL > or = 60 mg/dl - LO W CARDIOVASCULAR RISK <40 mg/dl - HIGH CARDIOVASCULAR RISK Normal [facility] Comment on above: Performed By: #### T SH, BNP, CMP, T7, LIPID ####[facility] [address] [address]Dr. Eusebia Moralez LDL CALC NORMAL SEE BELOW Normal [facility] Comment on above: Result Comment: <100 mg/dl OPTIMAL 100 - 129 mg/dl NEAR OR ABOVE OPTIMAL 130 - 159 mg/dl BORDERLINE HIGH 160 - 189 mg/dl HIGH >190 mg/dl VERY HIGH Performed By: #### T SH, BNP, CMP, T7, LIPID ####[facility] [address] [address]DrRadha Moralez Triglyceride [Mass/Vol] 113 mg/dL Normal <=150 [facility] Comment on above: Performed By: #### T SH, BNP, CMP, T7, LIPID ####[facility] [address] [address]DrRadha Moralez VLDL CALC 22.6 mg/dL Normal [facility] Comment on above: Performed By: #### T SH, BNP, CMP, T7, LIPID ####[facility] [address] [address]Dr. Eusebia Moralez PROF 14(COMP METB)on 022 Albumin [Mass/Vol] 3.3 g/dL Critically low 3.4-5.0 [facility] Comment on above: Performed By: #### T SH, BNP, CMP, T7, LIPID #### [facility] [address] [address] [address] Eusebia Moralez Albumin/Globulin [Mass ratio] 0.9 {ratio} Normal [facility] Comment on above: Performed By: #### T SH, BNP, CMP, T7, LIPID #### [facility] [address] [address] [address] Eusebia Moralez ALP [Catalytic activity/Vol] 81 U/L Normal 46-116 [facility] Comment on above: Performed By: #### T SH, BNP, CMP, T7, LIPID #### [facility] [address] [place] [address] Dr. Eusebia Moralez ALT [Catalytic activity/Vol] 19 U/L Normal 14-59 [facility] Comment on above: Performed By: #### T SH, BNP, CMP, T7, LIPID #### [facility] [address] [place] [address] Dr. Eusebia Moralez Anion gap [Moles/Vol] 12.3 mmol/L Normal [facility] Comment on above: Performed By: #### T SH, BNP, CMP, T7, LIPID #### [facility] [address] [place] [address] Dr. Eusebia Moralez AST [Catalytic activity/Vol] 12 U/L Critically low 15-37 [facility] Comment on above: Performed By: #### T SH, BNP, CMP, T7, LIPID #### [facility] [address] [place] [address] Dr. Eusebia Moralez Bilirubin [Mass/Vol] 0.4 mg/dL Normal 0.2-1.0 [facility] Comment on above: Performed By: #### T SH, BNP, CMP, T7, LIPID #### [facility] [address] [place] [address] Dr. Eusebia Moralez Calcium [Mass/Vol] 8.9 mg/dL Normal 8.5-10.1 [facility] Comment on above: Performed By: #### T SH, BNP, CMP, T7, LIPID #### [facility] [address] [place] [address] Dr. Eusebia Moralez Chloride [Moles/Vol] 106 mmol/L Normal 98-107 [facility] Comment on above: Performed By: #### T SH, BNP, CMP, T7, LIPID #### [facility] [address] [place] [address] Dr. Eusebia Moralez CO2 [Moles/Vol] 27.4 mmol/L Normal 21.0-32.0 [facility] Comment on above: Performed By: #### T SH, BNP, CMP, T7, LIPID #### [facility] [address] [address] [address] Eusebia Moralez Creatinine [Mass/Vol] 1.51 mg/dL Critically high 0.55-1.02 [facility] Comment on above: Performed By: #### T SH, BNP, CMP, T7, LIPID #### [facility] [address] [place] [address] Dr. Eusebia Moralez EGFR-AF MALIAN 41 mL/min/1.73m2 Critically low >=60 [facility] Comment on above: Performed By: #### T SH, BNP, CMP, T7, LIPID #### [facility] [address] [place] [address] Dr. Eusebia Moralez EGFR-NON AF MALIAN 34 mL/min/1.73m2 Critically low >=60 [facility] Comment on above: Performed By: #### T SH, BNP, CMP, T7, LIPID #### [facility] [address] [place] [address] Dr. Eusebia Moralez Globulin (S) [Mass/Vol] 3.5 g/dL Normal [facility] Comment on above: Performed By: #### T SH, BNP, CMP, T7, LIPID #### [facility] [address] [place] [address] Dr. Eusebia Moralez Glucose [Mass/Vol] 129 mg/dL Critically high 74-106 [facility] Comment on above: Performed By: #### T SH, BNP, CMP, T7, LIPID #### [facility] [address] [place] [address] Dr. Eusebia Moralez Potassium [Moles/Vol] 4.7 mmol/L Normal 3.5-5.1 [facility] Comment on above: Performed By: #### T SH, BNP, CMP, T7, LIPID #### [facility] [address] [place] [address] Dr. Eusebia Moralez Protein [Mass/Vol] 6.8 g/dL Normal 6.4-8.2 [facility] Comment on above: Performed By: #### T SH, BNP, CMP, T7, LIPID #### [facility] [address] [place] [address] Dr. Eusebia Moralez Sodium [Moles/Vol] 141 mmol/L Normal 136-145 [facility] Comment on above: Performed By: #### T SH, BNP, CMP, T7, LIPID #### [facility] [address] [address] [address] Eusebia Moralez Urea nitrogen [Mass/Vol] 37.0 mg/dL Critically high 7.0-18.0 [facility] Comment on above: Performed By: #### T SH, BNP, CMP, T7, LIPID #### [facility] [address] [address] [address] Eusebia Moralez Urea nitrogen/Creatinin e [Mass ratio] 24.5 mg/mg Normal [facility] Comment on above: Performed By: #### T SH, BNP, CMP, T7, LIPID #### [facility] [address] [address] [address] Eusebia Moralez TSHon 01-14-2022 TSH 0.068 uIU/mL Critically low 0.358-3.740 [facility] [place] Comment on above: Performed By: #### T SH, BNP, CMP, T7, LIPID ####[facility] [address] [place], [place] [address]EeDr. Eusebia Moralez [facility]13 SARS-CoV-2 (COVID-19) RNA DEREK+probe Ql (Unsp spec) Not detected Normal NOT DETECTED [facility] Comment on above: Result Comment: This test is not yet approved or cleared by the [place] FDA. When there are no FDA-approved or cleared tests available, and other criteria are met, FDA can make tests available under an emergency access mechanism called an Emergency Use Authorization (EUA). The EUA for this test is supported by the Service Vehicle Operator of Health and Human Service's (HHS's) declaration that circumstances exist to justify the emergency use of in vitro diagnostics for the detection and/or diagnosis of the virus that causes COVID-19. This EUA will remain in effect (meaning this test can be used) for the duration of the COVID-19 declaration justifying emergency of IVDs, unless it is terminated or revoked by FDA (after which the test may no longer be used). When diagnostic testing is negative, the possibility of a false negative should be considered in the context of a patient's recent exposures and the presence of clinical signs and symptoms consistent with SARS-CoV-2. Performed By: #### C [facility] ####[facility] [address] [place], [place] [address]CxRadha Moralez MRI LSPINE WO CONon 10-11-19 MRI LSPINE WO CON EXAMINATION: MRI LSP INE WO CON HISTORY: Lumbar radiculopathy ; chronic low back pain COMPARISON: MRI lumbar spine 07/02/2020 TECHNIQUE: A variety of imaging planes and parameters were utilized for visualization of suspected pathology. FINDINGS: For the purposes of numbering, sagittal T2 image # 8 extends from the T10 vertebral body superiorly to the S2 level inferiorly. PARASPINAL AREA: Normal with no visible mass. BONES: Straightening of normal lordotic curvature. No fracture, pars defect, or osseous lesion. CORD/CAUDA EQUINA: Normal caliber, contour, and signal intensity. DISC LEVELS: 12-L1: No significant disc/facet abnormality, spinal stenosis, or foraminal stenosis. L1-L2: No significant disc/facet abnormality, spinal stenosis, or foraminal stenosis. L2-L3: Moderate central canal and mild left foramen narrowing. Moderate diffuse disc bulging with moderate marked disc height reduction. No significant facet arthropathy. L3-L4: Moderate central canal and mild bilateral foramen narrowing. Mild diffuse disc bulging without disc height reduction. Mild degenerative facet arthropathy bilaterally. L4-L5: Moderate-marked central canal and right foramen narrowing. Mild left foramen narrowing. Moderate diffuse disc bulging with mild disc height reduction. Moderate degenerative facet arthropathy bilaterally. L5-S1: Moderate left, mild right foramen narrowing. No significant central canal narrowing. Mild diffuse disc bulging and mild disc height reduction. Mild degenerative facet arthropathy bilaterally. IMPRESSION: 1. L4-L5 moderate marked central canal and right foramen narrowing secondary to degenerative disc disease and facet arthropathy. 2. L2-L3, L3-L4 moderate central canal and foramen narrowing. Electronically authenticated by: AMBAR MAYA Date: 2021-10-10 07:29 Normal [facility] Pulmonary Progress Noteo n 09-13-2020 [facility] Pulmonary Progress Note [facility] Pt Name: VERO SADLER [address] MR#: [id number] [place] [id number] ACCT: [id number] PROGRESS NOTE- Pulmonary : [facility] Date of Service: 09/13/20 Text NAME: VERO SADLER MR#: [id number] DATE OF SERVICE: 09/13/2020 OUTPATIENT PULMONARY PROGRESS NOTE CHIEF COMPLAINT: COPD. HISTORY OF PRESENT ILLNESS: The patient is a very pleasant year-old female. She is scheduled for back surgery. The patient had surgical procedures before without any major complications. She was told that she had COPD based on pulmonary function test performed between 3 and 5 years ago. The patient has tried treatment with Advair without any significant improvements. Currently, she does not use any inhalers. The patient has not had any exacerbations during the last 3 years. No need for treatment with prednisone and no Urgent Care visits. She has relatively sedentary lifestyle. The patient has mild dyspnea on exertion. In terms of her sleep habits, she has snoring at night and during the day, she feels tired and she takes frequent naps. No driving problems. PAST MEDICAL HISTORY: Positive for COPD, hypertension, hypothyroidism, atrial fibrillation, and degenerative joint disease. ALLERGIES: Reviewed, documented on the chart. SOCIAL HISTORY: The patient is a former smoker, quit in 2009. FAMILY HISTORY: Positive for hypertension. REVIEW OF SYSTEMS: Ten-system review of systems performed. Negative for any complaints outside of the ones mentioned in history of present illness. PHYSICAL EXAMINATION: VITAL SIGNS: Reviewed. HEENT: Head and face, no deformities. Oropharynx, normal mucosa. Mallampati score is 4. NECK: Supple. No jugular venous distention. CHEST: Symmetric. No crackles. HEART: Regular. No murmurs. ABDOMEN: Soft and nontender. LOWER EXTREMITIES: 1+ edema. SKIN: Intact. JOINTS: Normal. NEUROLOGICAL: The patient is moving all 4 limbs. ASSESSMENT: 1. Chronic obstructive pulmonary disease, severity unknown. We will try to [facility] Pt Name: VERO SADLER [address] MR#: [id number] [place] [address] ACCT: [id number] PROGRESS NOTE- Pulmonary : [facility] Date of Service: 09/13/20 obtain copy of her previous pulmonary function test. The patient has not had any exacerbations and she already quit smoking. 2. Based on her body habitus and symptoms, I have moderate to high suspicion for obstructive sleep apnea. 3. Atrial fibrillation. 4. Hypertension. 5. Hypothyroidism. 6. Obesity. RECOMMENDATIONS: 1. Obtain copy of the previous pulmonary function test. Depending on the results, we will decide whether or not to start treatment with any inhaler. 2. Home sleep study for further evaluation for sleep apnea. 3. Blood pressure control. 4. Weight reduction. 5. Driving precautions. 6. From Pulmonary perspective, there is no contraindication for the planned surgery. Once we have results of the sleep study, we will initiate treatments with CPAP if necessary and also once we have results of the PFTs, we will give her prescription for medications as necessary. Our service will be available to assist with the postoperative management if needed. TIM TOSCANO MD DI/MODL/[id number] CC: Dr. Rito Guerrero MD eSign Date and Time Tim Toscano MD Signature on File 09/26/20 1046 Normal [facility] GLYCO HEMOon 08-23-2020 HbA1c (Bld) [Mass fraction] 5.3 % Normal [facility] Comment on above: Result Comment: Milagro vidal Diagnosis HbA1c (%) --------- Diabetic > 6.4 Prediabetes 5.7-6.4 Normal < 5.7 Performed By: #### L 500.61239 #### Test performed at: [address] [address] CBC W/DIFFon 08-22-2020 BASO ABS 0.0 K/uL Normal 0.0-0.2 [facility] Comment on above: Performed By: #### L 200.48202 #### Test performed at: [address] [address] Basophils/100 WBC (Bld) 0.5 % Normal [facility] Comment on above: Performed By: #### L 200.93328 #### Test performed at: [address] [address] EOS ABS 0.1 K/uL Normal 0.0-0.5 [facility] Comment on above: Performed By: #### L 200.08881 #### Test performed at: [address] [address] Eosinophils/100 WBC (Bld) 1.2 % Normal [facility] Comment on above: Performed By: #### L 200.23722 #### Test performed at: [address] [address] Erythrocyte distribution width (RBC) [Ratio] 12.8 % Normal 11.5-14.5 [facility] Comment on above: Performed By: #### L 200.38593 #### Test performed at: [address] [address] Hematocrit (Bld) [Volume fraction] 40.1 % Normal 36.0-48.0 [facility] Comment on above: Performed By: #### L 200.19333 #### Test performed at: [address] [address] Hemoglobin (Bld) [Mass/Vol] 12.4 g/dL Normal 12.0-15.0 [facility] Comment on above: Performed By: #### L 200.57422 #### Test performed at: [address] [address] IG % 0.3 % Normal [facility] Comment on above: Performed By: #### L 200.51030 #### Test performed at: [address] [address] IG ABS 0.02 K/uL Normal 0-0.05 [facility] Comment on above: Performed By: #### L 200.58607 #### Test performed at: [address] [address] Lymphocytes (Bld) [#/Vol] 1.3 10*3/uL Normal 1.2-3.5 [facility] Comment on above: Performed By: #### L 200.99150 #### Test performed at: [place] [address] Lymphocytes/100 WBC (Bld) 16.9 % Normal [facility] Comment on above: Performed By: #### L 200.25521 #### Test performed at: [place] [id number] MCH (RBC) [Entitic mass] 29.0 pg Normal 25.4-34.6 [facility] Comment on above: Performed By: #### L 200.57091 #### Test performed at: [place] [id number] MCHC (RBC) [Mass/Vol] 30.9 g/dL Low 31.5-36.5 [facility] Comment on above: Performed By: #### L 200.53834 #### Test performed at: [address] [address] MCV (RBC) [Entitic vol] 93.7 fL Normal 79.0-98.0 [facility] Comment on above: Performed By: #### L 200.13036 #### Test performed at: [address] [address] MONO ABS 0.8 K/uL Normal 0.0-1.0 [facility] Comment on above: Performed By: #### L 200.53453 #### Test performed at: [place] [address] [address] [address] Monocytes/100 WBC (Bld) 9.7 % Normal [facility] Comment on above: Performed By: #### L 200.96516 #### Test performed at: [address] [address] NEUTROPHIL ABS 5.5 K/uL Normal 1.4-6.6 [facility] Comment on above: Performed By: #### L 200.34084 #### Test performed at: [address] [address] Neutrophils/100 WBC (Bld) 71.4 % Normal [facility] Comment on above: Performed By: #### L 200.13200 #### Test performed at: [address] [address] NRBC # 0.000 K/uL Normal 0-0.012 [facility] Comment on above: Performed By: #### L 200.72956 #### Test performed at: [address] [address] NRBC % 0.0 /100 WBC Normal 0-0.2 [facility] Comment on above: Performed By: #### L 200.43029 #### Test performed at: [address] [address] Platelet mean volume (Bld) [Entitic vol] 10.1 fL Normal 8.7-12.4 [facility] Comment on above: Performed By: #### L 200.68334 #### Test performed at: [address] [address] Platelets (Bld) [#/Vol] 236 10*3/uL Normal 140-440 [facility] Comment on above: Performed By: #### L 200.34654 #### Test performed at: [address] [address] RBC (Bld) [#/Vol] 4.28 10*6/uL Normal 3.5-5.5 [facility] Comment on above: Performed By: #### L 200.47115 #### Test performed at: [address] [address] WBC (Bld) [#/Vol] 7.7 10*3/uL Normal 3.9-11.0 [facility] Comment on above: Performed By: #### L 200.35988 #### Test performed at: [address] [address] CHEST PA/AP & LATERAL OR 2 V WSon 08-22-2020 CHEST PA/AP & LATERAL OR 2 VWS STUDY: CHEST PA/AP LATERAL OR 2 VWS; 08/22/2020 2:35 pm INDICATION: COPD. COMPARISON: None. ACCESSION NUMBER(S): [id number] ORDERING CLINICIAN: Ovidio Baez FINDINGS: The lungs are clear without pleural effusion. Borderline cardiomegaly. Otherwise unremarkable mediastinum, eron, and pulmonary vasculature. Thoracic degenerative changes are present. IMPRESSION: No active disease in the chest. Normal [facility] COMP META PANELon 08-22-2020 Albumin [Mass/Vol] 3.4 g/dL Normal 3.4-5.0 [facility] Comment on above: Performed By: #### L 500.95816, L500.94745, L500.43987 #### Test performed at: [address] [address] ALK PHOS TOTAL 88 U/L Normal 45-117 [facility] Comment on above: Performed By: #### L 500.27716, L500.54529, L500.56078 #### Test performed at: [address] [address] ALT [Catalytic activity/Vol] 17 U/L Normal 13-61 [facility] Comment on above: Performed By: #### L 500.08591, L500.30154, L500.09705 #### Test performed at: [address] [address] AST [Catalytic activity/Vol] 12 U/L Low 15-37 [facility] Comment on above: Performed By: #### L 500.09781, L500.09401, L500.67759 #### Test performed at: [address] [address] BILI TOTAL 0.5 mg/dL Normal 0.2-1.0 [facility] Comment on above: Performed By: #### L 500.11437, L500.81065, L500.54185 #### Test performed at: [address] [address] Calcium [Mass/Vol] 9.0 mg/dL Normal 8.5-10.1 [facility] Comment on above: Performed By: #### L 500.89167, L500.37927, L500.34587 #### Test performed at: [address] [address] Chloride [Moles/Vol] 107 mmol/L Normal 98-107 [facility] Comment on above: Performed By: #### L 500.65611, L500.12694, L500.89771 #### Test performed at: [address] [address] CO2 [Moles/Vol] 29 mmol/L Normal 21-32 [facility] Comment on above: Performed By: #### L 500.46381, L500.63478, L500.24279 #### Test performed at: [address] [address] Creatinine [Mass/Vol] 1.280 mg/dL High 0.550-1.020 [facility] Comment on above: Performed By: #### L 500.20268, L500.13173, L500.76616 #### Test performed at: [address] [address] Glucose [Mass/Vol] 90 mg/dL Normal 70-99 [facility] Comment on above: Result Comment: Fast ing GLUCOSE reference range has been updated per (ADA) [place] [employer]'s recommendation. 06/07/2018 Performed By: #### L 500.97494, L500.09232, L500.67645 #### Test performed at: [address] [address] Potassium [Moles/Vol] 4.4 mmol/L Normal 3.5-5.1 [facility] Comment on above: Performed By: #### L 500.99697, L500.27241, L500.58028 #### Test performed at: [address] [address] Protein [Mass/Vol] 6.8 g/dL Normal 6.4-8.2 [facility] Comment on above: Performed By: #### L 500.19622, L500.00671, L500.27477 #### Test performed at: [address] [address] Sodium [Moles/Vol] 142 mmol/L Normal 136-145 [facility] Comment on above: Performed By: #### L 500.65690, L500.01265, L500.00840 #### Test performed at: [address] [address] Urea nitrogen [Mass/Vol] 21 mg/dL High 7-18 [facility] Comment on above: Performed By: #### L 500.00999, L500.00883, L500.62330 #### Test performed at: [address] [address] GFR ESTIMATEon 08-22-2020 IF AMER 50 Low > 60 [facility] Comment on above: Result Comment: eGFR (Estimated GFR) Units of measure:mL/min/1.73 meters sq. *CALCULATION REVISED 01/01/2015;IDMS-traceable MDRD equation eGFR is derived from the reexpressed MDRD Study equation using the following parameters: serum creatinine, age, gender and race. An eGFR<60 mL/min/1.73m2 for >3 months is consistent with chronic kidney disease. Refer to KDOQI guidelines for clinical interpretation. Performed By: #### L 500.67980, L500.34086, L500.68587 #### Test performed at: [place] [address] IF non-AFR AMER 41 Low > 60 [facility] Comment on above: Performed By: #### L 500.58366, L500.40530, L500.84545 #### Test performed at: [place] [address] TSH ULTRA SENSon 08-22-2020 TSH ULTRA SENS < 0.005 Low 0.358-3.74 [facility] Comment on above: Performed By: #### L 500.33369, L500.12019, L500.19872 #### Test performed at: [place] [address] LUMB SP COMP W FLEX/EXT 6 VW Son 07-23-2020 LUMB SP COMP W FLEX/EXT 6 VWS STUDY: LUMB SP COMP W FLEX/EXT 6 VWS ; 07/23/2020 9:01 am INDICATION: PAIN. COMPARISON: None. ACCESSION NUMBER(S): [id number] ORDERING CLINICIAN: Sacha Guerrero FINDINGS: No fracture or subluxation of the lumbar spine. Severe multilevel degenerative disc disease, most advanced at L2-3 and L4-5. Severe multilevel facet arthropathy. Mild levoscoliosis centered at L4. No pars defects. Trace anterolisthesis L1-2 and L4-5. No instability on flexion or extension. There is slight increased disc height with vacuum phenomenon at L2-3 and L4-5 on extension compared to flexion. IMPRESSION: Severe degenerative changes of the lumbar spine without instability. Normal [facility] Encounters Encounter Date Encounter Type Care Provider Facility Start: 03-26-2023 ambulatory JOSE ANGEL Richardson [facility] Start: 03-23-2023 End: 03-23-2023 ambulatory IRVIN KWOK [facility] Start: 02-16-2023 End: 02-16-2023 ambulatory NATALIA Wilils [facility] Start: 02-09-2023 End: 02-10-2023 ambulatory NATALIA Willis [facility] Start: 02-01-2023 End: 02-01-2023 ambulatory [facility] Start: 01-20-2023 End: 01-20-2023 ambulatory CINTIA JACOBO [facility] Start: 01-12-2023 End: 01-13-2023 ambulatory [facility] Start: 01-12-2023 End: 01-12-2023 ambulatory JENNIFER [facility] Start: 01-05-2023 End: 01-06-2023 ambulatory NATALIA Willis [facility] Start: 01-05-2023 End: 01-05-2023 ambulatory DEBBIE BHATIA [facility] Start: 01-01-2023 End: 01-01-2023 ambulatory COLLETTE HOFFMAN [facility] Start: 12-22-2022 End: 12-22-2022 ambulatory JOSE ANGEL MEEHAN [facility] Start: 12-15-2022 End: 12-15-2022 ambulatory TIAN FORD [facility] Start: 12-08-2022 ambulatory JOSE ANGEL Richardson [facility] Start: 12-02-2022 ambulatory Desmond ANDERS Facility : [facility] Start: 11-30-2022 End: 11-30-2022 ambulatory JOSE ANGEL MEEHAN [facility] Start: 11-13-2022 ambulatory Desmond PATTYNate Facility:[facility] Start: 11-06-2022 End: 11-06-2022 [facility]: 10-27-2022 End: 10-27-2022 ambulatory IRVIN [facility] Start: 10-07-2022 End: 10-08-2022 ambulatory JOSE ANGEL MEEHAN [facility] Start: 09-24-2022 End: 09-25-2022 [facility] Start: 09-22-20[address] [facility] Start: 09-08-2022 End: 09-09-2022 ambulatory JOSE ANGEL RODRIGUEZWARI [facility] Start: 09-08-2022 End: 09-08-2022 ambulatory [facility] Start: 08-04-2022 End: 08-04-2022 [facility] Start: 07-28-[address] [facility] Start: 07-22-2022 End: 07-22-2022 ambulatory [facility] Start: 07-17-2022 End: 07-18-2022 ambulatory IRVIN KWOK Facility:[facility] Start: 07-02-2022 End: 07-03-2022 ambulatory IRVIN KWOK Facility:[facility] Start: 05-25-[address] DEBBIE Blanton ty:[facility] Start: 05-19-[address] [facility] Start: 05-19-2022 End: 05-19-2022 [facility] Start: 05-11-2022 End: 05-12-2022 ambulatory JOSE ANGEL MEEHAN [facility] Start: 05-11-2022 End: 05-11-2022 Patient encounter procedure JOSE ANGEL MEEHAN [facility] Start: 04-24-2022 End: 04-25-2022 ambulatory IRVIN VALLADARESO [facility] Start: 04-24-2022 End: 04-24-2022 [facility] Start: 04-21-2022 ambulatory JOSE ANGEL BeardRadha WHITEI Dylan [facility] Start: 04-21-2022 End: 04-21-2022 ambulatory JOSE ANGEL MEEHAN [facility] Start: 04-21-2022 End: 04-21-2022 [facility] Start: 03-09-2022 End: 03-10-[address] DEBBIE BHATIA . Facility:[facility] Start: 02-23-2022 End: 02-24-[address] DEBBIE BHATIA . Facility:[facility] Start: 02-02-2022 End: 02-03-[address] DEBBIE BHATIA . Facility:[facility] Start: 01-26-2022 End: 01-27-[address] DEBBIE BHATIA . Facility:[facility] Start: 01-23-2022 End: 01-24-[address] DEBBIE BHATIA . Facility:[facility] Start: 01-21-2022 End: 01-22-[address] DEBBIE BHATIA . Facility:[facility] Start: 01-14-2022 End: 01-15-[address] DEBBIE BHATIA . Facility:[facility] Start: 10-28-2021 End: 10-28-[address] DEBBIE BHATIA . Facility:[facility] Start: 10-09-2021 End: 10-10-[address] DEBBIE BHATIA . Facility:[facility] Start: 08-12-2021 End: 08-12-[address] DEBBIE BHATIA . Facility:[facility] Start: 07-28-[address] DEBBIE BHATIA . Facili ty:[facility] Start: 09-29-2016 End: 09-30-2016 Ambulatory DEFAULT PHYSICIAN Facility:[facility] Payers Date Payer Category Payer Medicare [id number] 1958 Medicare [id number] 1958 Unknown [id number] 1950 Unknown [id number] 2.16.84 [id number] 1950 Unknown [id number] 2.16.84 [id number] 1950 Unknown [id number] 2.16.84 0.1.023937.3.579.2.593 1950 Unknown [id number] 2.16.84 0.1.619806.3.579.2.593 1951 Unknown [id number] 2.16.84 0.1.891172.3.579.2.593 1951 Unknown [id number] 2.16.84 0.1.453700.3.579.2.593 1950 Unknown [id number] 2.16.84 0.1.681664.3.579.2.593 1951 Unknown [id number] 2.16.84 0.1.992584.3.579.2.593 1950 Unknown [id number] 2.16.84 0.1.845207.3.579.2.593 1951 Unknown [id number] 2.16.84 0.1.867324.3.579.2.593 1951 Unknown [id number] 2.16.84 0.1.846096.3.579.2.593 1951 Unknown [id number] 2.16.84 0.1.926446.3.579.2.593 1951 Unknown [id number] 2.16.84 0.1.112400.3.579.2.593 1951 Unknown [id number] 2.16.84 0.1.940897.3.579.2.593 1950 Unknown [id number] 2.16.8 [id number] Unknown Clinical Notes 04-21-2022 to 03-26-2023 Note Date & Type Note Facility 03-26-2023 Note [facility] SUBJECTIVE: Subjective 03/26/23 CC: Chief Complaint Patient presents with Follow-up Physical Therapy only did a couple days of PT because of COPD and chest hurting Pain Assessment Pain Assessment: 0-10 Pain Score: 0 - No pain (7/10 when moving) Pain Type: Chronic pain Pain Location: Back Pain Orientation: Lower Pain Descriptors: Dull Pain Frequency: Constant/continuous Pain Onset: Ongoing Clinical Progression: Not changed Aggravating Factors: Walking, Bending, Exercise, Stairs, Standing, Other (Comment) (Moving around) Result of Injury: No Work-Related Injury: No Patient's Stated Pain Goal: No pain Pain Interventions: Rest 73 year old female here to follow up patient was unable to continue PT due to high blood pressure. Patient is having worsening pain in lower back that is tenderness to palpation worse with standing and walking. Pain is constant with sharp twinges from the dull ache that is a 8/10. patient denies radicular symptoms she uses a rollator to ambulate. Per prior note: 72 year old female here to follow up Vertiflex. Patient denies issues with incisions she is napping cleaning incisions. She reports Dermabond and Steri-Strips fell off a few days ago. Patient reports significant improvement in stand time and walk distance. She is ambulating much better and for longer without as severe pain. She reports surgical pain has begun to improve. Per prior note 72 year old female here to follow up Vertiflex at L3-4 and L4-5. Patient reports that she did not need pain medications postoperatively. She reports more predominant right anterior rib pain that is improving. She reports this was initially painful especially while laughing. She states that this is getting better. Patient reports lumbar pain and incisional pain is improving. Denies any issues with incisions has questions about Steri-Strips. Patient reports that she has noticed she is able to stand up straighter. She has not tested out stand time and walk distance yet. Patient denies any fevers chills nausea or vomiting. Per prior note: 72 year old female here to follow up s/p TFESI L4/5. She had complete relief of radicular pain in right leg but continues to have low back pain that is worse with standing and walking she has become more functionally limited and has to take sit down and take breaks with full resolution of pain symptoms.. Spacers were discussed at last visit. Since then she had a bone scan and EP study both of which were normal. She is on aspirin 81mg daily. States she is able to stand just a few minutes and can walk less than a minute without breaks. Per prior note: 72 year old female here to follow up lumbar xray and dexa scan. Patients results show osteopenia worse in femoral neck . Lumbar Xray showes advance multilevel disc space loss. Patient is currently seeing nephrology for her ckd III/b . Patient also is seeing cardiology for arrhthymias which are not persistent anymore, patient is to follow up with cardiology in october to assess next step. She is scheduled for a sleep apnea test to determine if this might be the reason for her arrhythmias. Patient states she had an episode of arrhythmia last night. Patients pain is currently controlled by resting when she has her low back pain flare. Currently her pain starts in her right low back and will radiate slightly past her knees. Patient is no longer in physical therapy due to lack of improvement. Per prior note: 72 year old female here to follow up PT, since last visit she has seen cardiology resume specialist for VT. patient reports that overall she is doing much better following mild. She reports leg pain has resolved. Patient has more mild low back pain that worsens with standing and walking. Patient states that she is being worked up by cardiology because of arrhythmia. Patient reports overall she is doing well but she would like to continue to improve her back pain Per prior note: This is a 72-year-old female presenting to follow-up mild L3-4 and L4-5. Overall patient is reporting 50% improvement in back pain. She reports being able to stand longer and walk further. She was able to walk around [employer] which she previously was not able to do without taking long breaks. Reports improved sleep at night. Her back pain is significantly improved laying flat. Patient denies issues with incisions other than some bruising. Steri-Strips are still intact. Denies any fevers chills . Denies any drainage or discharge from incision. Patient reports that she had a poor perioperative experience with placement of her IV. She reports missed placement of IV and reports when dressing was taken off her skin tore. She reports this is scabbed over. Patient reports that she took Percocet postoperatively did not tolerate this has been taking Tylenol since. She plans to dispo (more content not included)... [facility] 03-23-2023 Note [place] Cardiology Consul t Note Reason for visit: follow up after PPM. 03/23/23 Patient here for 2 mo follow up bradycardia and NSVT s/p PPM implant. She denies recurrent lightheadedness/syncope and says she's much more active now, as she's no longer sleeping during the day. Says BP at home usually runs between 147-165 systolic. Gets chest pressure sometimes when she lies down at night. Denies change in SOB. Limited by her back issues. 10/27/22 Patient stated that she had some chest pain which she described as chest pressure. this is very for and there is no associated radiation. previous patient underwent the EP study for nonsustained VT which did not induce any sustained ventricular tachycardia. EKG 10/27/2022 shows sinus rhythm with no evidence of ischemia EP Study 07/22/22 AHms 74 HVms 47 VERPms 600/240, VA condunction+ AV Wenkebach ms 340 AH jump ms NA AVNERP ms Straight to AERP AERP ms 600/290 Prior HPI: Vero Sadler is a 73 y.o. year old with past medical history of resistant hypertension, sinus bradycardia. She was seen by DR Restrepo after she had been observed to have low HR when she was seen by pain team for nerve ablation for back pain. This led to event monitor which revealed NS-VT as well as NS-AT. She feesl the AT episodes. TESTING: Event monitor that was placed from 04/27/2019 to 04/15/20112022 revealed the presence of nonsustained ventricular tachycardia as well as episodes of nonsustained atrial tachycardia's. Episode of nonsustained atrial tachycardia was noted on 02/24/2022 at 9:23 PM as well as another monitor on 03/01/2020 to 03/06/2022 as well as 03/07/2020 to 03/10/2022. Reportedly there were episodes of wide-complex tachycardia that was noted on 03/12/2022 at 9:51 PM which appeared more like an idioventricular rhythm lasted for approximately 8seconds. ECHO 07/19/19: preserved LV function, grade II DD, biatrial enlargement, mild TR, moderately elevated right sided pressures (RVSP 45-60) Cardiac cath 07/2016 FINAL IMPRESSION: 1. Normal epicardial arteries. 2. 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 Exercise stress test 01/26/2022: 1. Moderate sized, moderate severity, fixed defect in anterior wall LAD distribution-there are no wall motion abnormalities noted, ejection fraction is normal. This cannot be anything but breast artifact 2. No reversible ischemia 3. Dilated left ventricle 4. Normal global left ventricular systolic function with an EF of 69% 5. No transient ischemic dilation 6. Normal exercise stress test PMH: Past Medical History: Diagnosis Date Abnormal ECG Adverse effect of anesthesia heartrate drops after colonoscopy Arthritis Chronic kidney disease COPD (chronic obstructive pulmonary disease) ([facility]) Hypertension Myocardial infarction ([facility]) Obstructive sleep apnea 10/02/2022 SOBIA=17.7 events/hour; Pranav SaO2=76%; Cglujj=349.0 lbs; BMI=52.7 kg/m2, Home Sleep Apnea Testing on 09/25/[address] [facility] PSH: Past Surgical History: Procedure Laterality Date CARDIAC CATHETERIZATION COLONOSCOPY EYE SURGERY CATARACT FOOT SURGERY Right tendon repair HYSTERECTOMY INSERT / REPLACE / REMOVE PACEMAKER SH: Social Determinants of Health Tobacco Use: Medium Risk (02/09/2023) Patient History Smoking Tobacco Use: Former Smokeless Tobacco Use: Never Passive Exposure: Never Alcohol Use: Not on file Financial Resource Strain: Low Risk (01/05/2023) Overall Financial Resource Strain (CARDIA) Difficulty of Paying Living Expenses: Not hard at all Food Insecurity: Unknown (01/05/2023) Hunger Vital Sign Worried About Running Out of Food in the Last Year: Never true Ran Out of Food in the Last Year: Not on file Transportation Needs: Unknown (01/05/2023) PRAPARE - Transportation Lack of Transportation (Medical): No Lack of Transportation (Non-Medical): Not on file Physical Activity: Not on file Stress: Not on file Social Connections: Not on file Intimate Partner Violence: Not At Risk (01/05/2023) Humiliation, Afraid, Rape, and Kick questionnaire Fear of Current or Ex-Partner: No Emotionally Abused: No Physically Abused: No Sexually Abused: No Depression: Not at risk (01/05/2023) PHQ-2 PHQ-2 Score: 1 Housing Stability: Unknown (01/05/2023) Housing Stability Vital Sign Unable to Pay for Housing in the Last Year: Not on file Number of Places Lived in the Last Year: Not on file Unstable Housing in the Last Year: No Utilities: Not on file Allergies: Allergies Allergen Reactions Penicillins Other Yeast infection Weight: 141kg Visit Vitals BP 146/73 (BP Location: Right wrist, Patient Position: Sitting) Pulse 80 Ht 1.651 m (5' 5 ) Wt (!) 141 kg (311 lb) LMP (LMP Unknown) SpO2 96% BMI 51.75 kg/m??? OB Status Hysterectomy Smoking Status Former BSA 2.54 m??? Meds: Current Outpatient Medications on File Prio (more content not included)... [facility] 02-16-2023 Note [facility] Gastroenterolog y Follow-Up Patient Visit CHIEF COMPLAINT Diarrhea HISTORY OF PRESENT ILLNESS: Vero Sadler is a 72 y.o. female w/ pmh of KATIE, HTN, COPD, HFpEF, chronic bilat LE edema, chronic back pain, arthritis, & CKD 3, presenting for abdominal pain, bloating, increase gas & change in stools which start over 4.5 months ago, suddenly. No prior history of these symptoms. She reports epigastric pain w/ radiation to her mid to lower abdomen w/ frequent left sided pain. Notable raise in digestive noises and becoming very gassy and bloated. She has noticed urgency with BMs and BMs now occuring multiple times per day, usually triggered by eating. Frequency depends on how much she eats. Consistency is loose-watery, usually loose. Sometimes she just passes mucous. Denies any day w/o BMs, Hard stools or straining. Endorses nocturnal defecations. She experiences a great deal of cramping and pain w/ BMs. Has been taking Levsin PRN. Previously she reports very regular, formed BMs. Issues w/ heartburn Denies any nausea, vomiting, hematochezia, melena, anorexia, unintentional weight loss and fevers. Denies tobacco, alcohol, or illicit drug use. Denies previous abdominal surgeries. Avoids NSAIDs Mother w/ rectal cancer and Crohn's disease requiring ileostomy Father w/ colon cancer, had colostomy. INTERVAL HISTORY 02/16/23: Positive for COVID today, apt had to be switched to telehealth Since last in clinic her EGD/CLN were completed. EGD- hiatal hernia, duodenitis (normal Bx, negative for celiac, -ve H. pylori); CLN- diverticulosis, external hemorrhoids- poor prep. Random colon bx showed colonic mucosa with focal mild architectural distortion suggesting healing mucosal injury. No features of microscopic colitis. Prep was poor, not strictly compliant with diet recommendations, drank all the Golytely except a small amount at the end. Repeat colonoscopy in 1 year. Stool studies were submitted to [facility], no results available. Ongoing altered BMs, however better than when last in clinic but still far from her baseline. BMs occur 3-4 x per day, stools w/ a bit more form now, more mushy/pasty. Ongoing gas, borborygmus, bloating. Also has intermittent issues w/ abdominal pain. Denies any nausea, vomiting, hematochezia, melena, anorexia, unintentional weight loss and fevers. Still taking pantoprazole 40 mg per day. No improvement w/ Levsin. PREVIOUS LABS/IMAGING/ENDOSCOPY: Esophagogastroduodenoscopy (EGD) 02/10/23: Procedure: EGD with biopsies Indications: 72 y.o F presenting with abdominal pain, bloating, and diarrhea. Sedation: MAC Attending Physician: Dr. Dario Calderon Stem Processing Machine Operator: Nancy Prado, Fellow Procedure Details: Informed consent was obtained for the procedure, including sedation. Risks of infection, perforation, hemorrhage, adverse drug reaction, and aspiration were discussed. The patient was placed in the left lateral decubitus position. The patient was monitored continuously with ECG tracing, pulse oximetry, blood pressure monitoring, and direct observation. The gastroscope was inserted into the mouth and advanced under direct vision to second portion of the duodenum. A careful inspection was made as the gastroscope was withdrawn, including a retroflexed view of the proximal stomach; findings and interventions are described below. Appropriate photodocumentation was obtained. Findings: Normal proximal, mid, and distal esophagus. 2 cm hiatal hernia. Normal gastric fundus, cardia, body, and antrum, without evidence of erosions, ulcers, or gastritis. Gastric biopsies were taken to rule out H. Pylori. In the duodenal bulb, there were multiple small, non-bleeding erosions. The second part of the duodenum was normal. Duodenal biopsies were taken to rule out celiac disease. Impression: 2 cm hiatal hernia Erosive duodenitis Recommendations: Follow up gastric biopsies to rule out H. Pylori. Follow up duodenal biopsies to rule out celiac disease. Recommend Protonix 40mg once daily for erosive duodenitis. Proceed to colonoscopy. Colonoscopy Procedure Note Procedure: Colonoscopy with biopsies Indications: 72 y.o F presenting with abdominal pain, bloating, and diarrhea. She reports a family history of colon cancer in her father, and Crohn's disease in her mother. Sedation: MAC Attending Physician: Dr. Dario Calderon Findings: Poor colon prep. The examined terminal ileum was normal. There was no evidence of erosions, ulcerations, or erythema. Within the limitations of poor prep, there were no large polyps or masses in the cecum, ascending colon, transverse colon, descending colon, sigmoid colon, and rectum. Random colon biopsies were taken to rule out microscopic colitis. There was evidence of small and large mouthed diverticula in the sigmoid colon. On retroflexed view of the rectum, there was evidence of skin tags and small external hemorrhoid (more content not included)... [facility] 02-09-2023 Note Patient: Vero boudreaux Procedure Summary Date: 02/09/23 Room / Location: [facility] Endoscopy Anesthesia Start: 1336 Anesthesia Stop: 1425 Procedures: DIAGNOSTIC COLONOSCOPY EGD Diagnosis: Abdominal pain, unspecified abdominal location Change in bowel habits Chronic diarrhea Family history of colon cancer in father Family history of rectal cancer Family history of Crohn's disease Gastroesophageal reflux disease, unspecified whether esophagitis present Scheduled Providers: Dario Calderon MD; Abel Downing MD Responsible Provider: Abel Downing MD Anesthesia Type: MAC ASA Status: 3 Anesthesia Type: MAC Vitals Value Taken Time BP 150/68 02/09/23 1430 Temp 36 ???C (96.8 ???F) 02/09/23 1425 Pulse 75 02/09/23 1430 Resp 16 02/09/23 1430 SpO2 99 % 02/09/23 1430 Anesthesia Post Evaluation Patient location during evaluation: PACU Patient participation: complete - patient participated Level of consciousness: awake and alert Pain score: 0 Pain management: adequate Airway patency: patent Two or more strategies used to mitigate risk of obstructive sleep apnea Cardiovascular status: hemodynamically stable Respiratory status: room air and nonlabored ventilation Hydration status: euvolemic Patient is hemodynamically stable and is able to be discharged from PACU per anesthesia protocol. There were no known notable events for this encounter. [facility] 02-09-2023 Note Patient: Vero boudreaux Procedure Summary Date: 02/09/23 Room / Location: [facility] Endoscopy Anesthesia Start: 1336 Anesthesia Stop: Procedures: DIAGNOSTIC COLONOSCOPY EGD Diagnosis: Abdominal pain, unspecified abdominal location Change in bowel habits Chronic diarrhea Family history of colon cancer in father Family history of rectal cancer Family history of Crohn's disease Gastroesophageal reflux disease, unspecified whether esophagitis present Scheduled Providers: Dario Calderon MD; Abel Downing MD Responsible Provider: Abel Downing MD Anesthesia Type: MAC ASA Status: 3 Anesthesia Post Transport [facility]: room air Patient Monitor: direct observation Transport: uneventful Patient condition is: stable [facility] 02-09-2023 Note Patient: Vero boudreaux Procedure Information Date/Time: 02/09/23 1100 Scheduled providers: Dario Calderon MD; Abel Downing MD Procedures: DIAGNOSTIC COLONOSCOPY EGD Location: [facility] Endoscopy Relevant Problems Anesthesia (+) KATIE on CPAP (+) Obstructive sleep apnea Cardio (+) A-fib (CMS/HCC) (+) Essential hypertension (+) Nonsustained paroxysmal ventricular tachycardia (CMS/HCC) (+) Other secondary pulmonary hypertension (CMS/HCC) (+) 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CMS/HCC) Clinical information reviewed: Tobacco Allergies Meds Problems Med Hx Surg Hx Fam Hx Physical Exam Airway Mallampati: I TM distance: >3 FB Neck ROM: full Cardiovascular Rhythm: regular Rate: normal Dental (+) upper dentures Pulmonary Abdominal (+) obese Other findings: Quit smoking 2009; +KATIE; Sees Dr. Meehan for back pain; pacemaker for bradycardia placed approx 01/13/2023. Anesthesia Plan ASA 3 MAC The patient is not a current smoker. Patient was previously instructed to abstain from smoking on day of procedure. Patient did not smoke on day of procedure. intravenous induction Anesthetic plan and risks discussed with patient. Plan discussed with resident. Additional Equipment Requests [facility] 01-28-2023 Note Medications to take AM day of procedure with sips water only: Albuterol inh Carvedilol Hydralazine Levothyroxine liothryonine Medication Hold instructions: NSAIDs (Motrin,Aleve): 5 days prior to procedure Vitamins/Supplements: 5 days prior to procedure IF YOU ARE GOING HOME AFTER YOUR SURGERY OR PROCEDURE, FOR YOUR SAFETY, YOUR SURGERY WILL BE CANCELLED IF BOTH OF THE FOLLOWING ARE NOT AVAILABLE: An adult xm1 tank driver over the age of 18, that can receive information about your care after surgery, and drive you home. A responsible adult to stay with you for 24 hours in case of an emergency. Can be same as above. The highest risk of complications is within the first 24 hours after sedation/anesthesia. Nothing to eat or drink after midnight the night before surgery. This includes gum, candy, mints, and lozenges. No alcohol, marijuana, or tobacco products including vaping for 24 hours. Please brush your teeth; don't swallow the toothpaste or water. If you use dentures, wear them but do not use paste. Please leave any other removable dental hardware at home. Do not put in contact lenses. Do not wear perfume, make-up, nail belarusian, or lotions on the day of your surgery or procedure. Follow skin-prep/wipe instructions as below if required. Bring with you: *Insurance card *Photo ID *Medication list *Co-pay for visit/prescriptions If applicable: *Rescue inhalers *Green bracelet from lab *CPAP or BiPAP machine, if staying overnight *Any braces, splints, or equipment ordered preoperatively *Remote controls for implanted devices Leave at home: *Purse/Wallet/Stoddard- unless needed for co-pay *Cell phone (can leave with family/friend or place in locker if needed) *Jewelry (including piercings and wedding bands) *If not possible, ask the person who is waiting with you to keep them Children under the age of 12 will not be allowed into patient care areas. We will call you between 3pm and 4pm the day before your surgery to give you an arrival time. If you do not receive this call, have any questions, or need to make any changes, please call [phone]. Notify your surgeon if you develop any illness such as a cold, cough, fever, sore throat or vomiting between now and your surgery. Thank you for entrusting us with your care. [facility] Surgical Services Team [facility] 01-20-2023 Note Cardiovascular Medic [facility] SUBJECTIVE Chief Complaint Patient presents with Dizziness Wound Check Vero aSdler is a 72 y.o. female here for follow-up after her recent pacemaker implant. HPI She just had a PPM placed on 01/12/2023 for bradycardia and tachy/newton syndrome. She was feeling well until yesterday. Yesterday, 01/19/23, she went to the ER for c/o dizziness/LH, near syncope after she showered. Her BP at home was 110s/60s. She reports this is low for her. Her symptoms developed after she had eaten breakfast and taken a shower. Today she denies CP, dyspnea, orthopnea, PND, palpitations, dizziness/LH. Her LE edema is stable. Patient Active Problem List Diagnosis Chest pain Dyspnea Edema Essential hypertension Fatigue Lightheadedness Spinal stenosis of lumbar region with neurogenic claudication Lower abdominal pain Spondylosis of lumbosacral region without myelopathy or radiculopathy A-fib ([facility]) Clinical trial exam VT (ventricular tachycardia) (CMS/HCC) Obstructive sleep apnea Nonsustained paroxysmal ventricular tachycardia (CMS/HCC) Other secondary pulmonary hypertension (CMS/HCC) KATIE on CPAP Symptomatic bradycardia 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CMS/HCC) Past Medical History: Diagnosis Date Abnormal ECG Arthritis Chronic kidney disease COPD (chronic obstructive pulmonary disease) (CMS/HCC) Hypertension Myocardial infarction ([facility]/HCC) Obstructive sleep apnea 10/02/2022 SOBIA=17.7 events/hour; Pranav SaO2=76%; Ezgusz=987.0 lbs; BMI=52.7 kg/m2, Home Sleep Apnea Testing on 09/25/[address] [facility] Family History Problem Relation Name Age of Onset Other (malig neoplastic disease) Mother Coronary artery disease Mother Other (cerebrovascular accident) Mother Other (renal disease) Mother Other (malig neoplastic disease) Father Hypertension Father Hyperlipidemia Father Other (malig neoplastic disease) Daughter Social History Tobacco Use Smoking status: Former Types: Cigarettes Quit date: 2007 Years since quittin.8 Passive exposure: Never Smokeless tobacco: Never Vaping Use Vaping Use: Never used Substance Use Topics Alcohol use: Yes Comment: rarely Drug use: Never Allergies Allergen Reactions Penicillins Other Yeast infection ROS Constitutional: Positive for diaphoresis and malaise/fatigue. Cardiovascular: Positive for dyspnea on exertion and leg swelling. Respiratory: Positive for snoring. Hematologic/Lymphatic: Bruises/bleeds easily. Musculoskeletal: Positive for back pain, muscle weakness and myalgias. Neurological: Positive for excessive daytime sleepiness and headaches. All other systems reviewed and are negative. OBJECTIVE Visit Vitals BP 176/84 (BP Location: Left wrist, Patient Position: Standing) Pulse 79 Ht 1.651 m (5' 5 ) Wt (!) 143 kg (316 lb) LMP (LMP Unknown) SpO2 96% BMI 52.59 kg/m??? OB Status Hysterectomy Smoking Status Former BSA 2.56 m??? Medications: Current Outpatient Medications: albuterol 90 mcg/actuation inhaler, Inhale 2 puffs every 4 (four) hours if needed for shortness of breath., Disp: , Rfl: aspirin 81 mg EC tablet, Take 81 mg by mouth in the morning., Disp: , Rfl: bumetanide (Bumex) 1 mg tablet, Take 1 tablet (1 mg) by mouth in the morning. (Patient taking differently: Take 1 mg by mouth in the morning. Doesn't take when traveling), Disp: 90 tablet, Rfl: 3 carvedilol (Coreg) 12.5 mg tablet, Take 1 tablet (12.5 mg) by mouth in the morning and at bedtime. (Patient taking differently: Take 6.25 mg by mouth in the morning and at bedtime.), Disp: 60 tablet, Rfl: 0 diclofenac (Voltaren) 75 mg EC tablet, Take 75 mg by mouth in the morning and at bedtime. Do not crush, chew, or split., Disp: , Rfl: doxycycline (Vibra-Tabs) 100 mg tablet, Take 1 tablet (100 mg) by mouth in the morning and at bedtime for 10 days. Take with a full glass of water and do not lie down for at least 30 minutes after., Disp: 20 tablet, Rfl: 0 hydrALAZINE (Apresoline) 100 mg tablet, Take 100 mg by mouth in the morning, at noon, and at bedtime., Disp: , Rfl: hyoscyamine (Levsin/SL) 0.125 mg SL tablet, every 6 (six) hours., Disp: , Rfl: isosorbide mononitrate ER (Imdur) 30 mg 24 hr tablet, Take 1 tablet (30 mg) by mouth in the morning. Do not crush or chew., Disp: 90 tablet, Rfl: 3 levothyroxine (Synthroid, Levoxyl) 100 mcg tablet, Take 100 mcg by mouth before breakfast., Disp: , Rfl: liothyronine (Cytomel) 25 mcg tablet, Take 1 tablet by mouth in the morning., Disp: , Rfl: lisinopril 10 mg tablet, Take 1 tablet (10 mg) by mouth in the morning., Disp: 90 tablet, Rfl: 3 lovastatin (Mevacor) 20 mg tablet, Take 20 mg by mouth in the morning., Disp: , Rfl: omega 9-qjv-pej-fish oil 350 mg-235 mg- 90 mg-597 mg capsule,delayed release(DR/EC), Take 1 capsule by mouth in the morning., Disp: , Rfl: revefenacin (Yupelri) 175 mcg/3 mL nebu (more content not included)... [facility] 01-20-2023 Note Patient here for wou nd check s/p PPM placement on 01/[address] Bullock. She presented to [facility] ED yesterday for near-syncope. Said BP was high this morning when she was discharged from the hospital. Chest pressure and palpitations have resolved since getting device. Valdez from [employer] was contacted regarding home monitor. He states everything looked good and no arrhythmias. Review of Systems Constitutional: Positive for diaphoresis and malaise/fatigue. Cardiovascular: Positive for dyspnea on exertion and leg swelling. Respiratory: Positive for snoring. Hematologic/Lymphatic: Bruises/bleeds easily. Musculoskeletal: Positive for back pain, muscle weakness and myalgias. Neurological: Positive for excessive daytime sleepiness and headaches. All other systems reviewed and are negative. [facility] 01-12-2023 Note Indications for perm anent pacemaker insertion: The patient is a 72-year-old woman who is developed a sick sinus/tachybradycardia syndrome with alternating periods of atrial tachycardia and symptomatic bradycardia. Because of this she will undergo permanent pacemaker implantation. Procedure: After written informed consent was obtained she was brought to the pacemaker laboratory in the fasting state. A contrast injection for venography of the upper extremity was performed to delineate the course and patency of the left subclavian. The left subclavicular fossa then prepped and draped in the manner 1% Xylocaine solution infiltrated for local anesthesia. Utilizing percutaneous technique the left subclavian was cannulated and under fluoroscopic guidance a guidewire advanced to the level of the inferior vena cava to ensure intervascular placement. Following initial sharp incision meticulous blunt dissection was employed to create a subfascial pocket. Via 2 breakaway introducer sheaths Biotronik active-fixation pacing electrodes were fluoroscopically guided into the right ventricular septum and right atrial appendage. The active-fixation coils of each were deployed and the leads were sutured in place with an 0 silk suture. They were connected to a Biotronik dual-chamber pacemaker pulse generator. This was placed in the previously created subfascial pocket and sutured in place with an 0 silk suture. Next the all field telemetry adequate sensing and pacing levels were determined. The right atrial lead had a pacing threshold of 0.8 V at 0.4 ms pulse width P wave amplitude 1.4 mV and impedance of 409 ohms. Right ventricular lead had a pacing threshold 1.7 V at 1.4 ms pulse width with R wave amplitude of 7.3 mV and impedance of 780 ohms. The pocket was then irrigated with antibiotic solution. The fascia layer was closed with a continuous 2-0 Vicryl suture. The subdermal area with interrupted 3-0 Biosyn sutures placed utilizing a buried knot technique. The skin surface was closed with Dermabond glue and the wound was dressed with a Telfa pad and Tegaderm dressing. Sponge and needle counts were correct at the end of the case. Prior to the procedure the patient received 1 g of intravenous vancomycin as antibiotic prophylaxis. Conscious sedation was maintained throughout the case with intravenous midazolam and fentanyl. She was returned to the holding area in stable hemodynamic condition. Impressions: Dual-chamber pacemaker insertion Fluoroscopy Conscious sedation Contrast injection for venography of the upper extremity Jennifer Bullock M.D. [facility] [employer] consultant and Pediatrics Director: Cardiac Electrophysiology Program [facility] 01-12-2023 Note Patient: Vero boudreaux Procedure Information Date/Time: 01/12/23 63 Procedure: Implant PPM - Tachy Newton syndrome, NSVT, symptomatic bradycardia Location: [facility] PROGRAM REP 1 / [facility] (Cath) Providers: Jennifer Bullock MD Clinical information reviewed: Allergies Meds OB Status Physical Exam Airway Mallampati: I Cardiovascular - normal exam Dental - normal exam Pulmonary - normal exam Abdominal - normal exam Anesthesia Plan ASA 2 The patient is not a current smoker. Patient was not previously instructed to abstain from smoking on day of procedure. Patient did not smoke on day of procedure. Education provided regarding risk of obstructive sleep apnea. intravenous induction Anesthetic plan and risks discussed with patient. Use of blood products discussed with patient who. Additional Equipment Requests [facility] 01-05-2023 Note [facility] Gastroenterolog y New Patient Visit - History & Physical CHIEF COMPLAINT Chief Complaint Patient presents with New Patient Abdominal Pain Pt states when she eats she feels pain in her stomach change in bowel habits Gas HISTORY OF PRESENT ILLNESS: Vero Sadler is a 72 y.o. female w/ pmh of KATIE, HTN, COPD, HFpEF, chronic bilat LE edema, chronic back pain, arthritis, & CKD 3, presenting for abdominal pain, bloating, increase gas & change in stools which start 3 months ago, suddenly. No prior history of these symptoms. She reports epigastric pain w/ radiation to her mid to lower abdomen w/ frequent left sided pain. Notable raise in digestive noises and becoming very gassy and bloated. She has noticed urgency with BMs and BMs now occuring multiple times per day, usually triggered by eating. Frequency depends on how much she eats. Consistency is loose-watery, usually loose. Sometimes she just passes mucous. Denies any day w/o BMs, Hard stools or straining. Endorses nocturnal defecations. She experiences a great deal of cramping and pain w/ BMs. Has been taking Levsin PRN. Previously she reports very regular, formed BMs. Issues w/ heartburn Denies any nausea, vomiting, hematochezia, melena, anorexia, unintentional weight loss and fevers. Denies tobacco, alcohol, or illicit drug use. Denies previous abdominal surgeries. Avoids NSAIDs Mother w/ rectal cancer and Crohn's disease requiring ileostomy Father w/ colon cancer, had colostomy PREVIOUS LABS/IMAGING/ENDOSCOPY: Past EGD never Past CLN ~ [facility] [place]. No records available. Reports history of polyps and h/o rectal cancer in her mother and colon cancer in her father. HISTORY: Problem list: Patient Active Problem List Diagnosis Chest pain Dyspnea Edema Essential hypertension Fatigue Lightheadedness Spinal stenosis of lumbar region with neurogenic claudication Lower abdominal pain Spondylosis of lumbosacral region without myelopathy or radiculopathy A-fib ([facility]) Clinical trial exam VT (ventricular tachycardia) ([facility]) Obstructive sleep apnea Nonsustained paroxysmal ventricular tachycardia ([facility]) Other secondary pulmonary hypertension ([facility]) KATIE on CPAP Symptomatic bradycardia 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[facility]) Past Medical History: Past Medical History: Diagnosis Date Abnormal ECG Arthritis Chronic kidney disease COPD (chronic obstructive pulmonary disease) ([facility]) Hypertension Myocardial infarction ([facility]) Obstructive sleep apnea 10/02/2022 SOBIA=17.7 events/hour; Pranav SaO2=76%; Xeectu=134.0 lbs; BMI=52.7 kg/m2, Home Sleep Apnea Testing on 09/25/[address] [facility] Past Surgical History: Past Surgical History: Procedure Laterality Date CARDIAC CATHETERIZATION EYE SURGERY CATARACT FOOT SURGERY Right tendon repair HYSTERECTOMY FAMILY HISTORY: Family History Problem Relation Name Age of Onset Other (malig neoplastic disease) Mother Coronary artery disease Mother Other (cerebrovascular accident) Mother Other (renal disease) Mother Other (malig neoplastic disease) Father Hypertension Father Hyperlipidemia Father Other (malig neoplastic disease) Daughter SOCIAL HISTORY: Social History Tobacco Use Smoking status: Former Types: Cigarettes Quit date: 2007 Years since quittin.8 Passive exposure: Never Smokeless tobacco: Never Vaping Use Vaping Use: Never used Substance Use Topics Alcohol use: Yes Comment: rarely Drug use: Never ALLERGIES: Penicillins Current Medications: Current Outpatient Medications: albuterol 90 mcg/actuation inhaler, Inhale 2 puffs every 4 (four) hours if needed for shortness of breath., Disp: , Rfl: aspirin 81 mg EC tablet, Take 81 mg by mouth in the morning., Disp: , Rfl: bumetanide (Bumex) 1 mg tablet, Take 1 tablet (1 mg) by mouth in the morning., Disp: 90 tablet, Rfl: 3 calcium carbonate-vitamin D3 600 mg-25 mcg (1,000 unit) capsule, Take 1,000 Units by mouth in the morning., Disp: 120 capsule, Rfl: 3 diclofenac (Voltaren) 75 mg EC tablet, Take 75 mg by mouth in the morning and at bedtime. Do not crush, chew, or split., Disp: , Rfl: hydrALAZINE (Apresoline) 100 mg tablet, Take 100 mg by mouth in the morning, at noon, and at bedtime., Disp: , Rfl: hyoscyamine (Levsin/SL) 0.125 mg SL tablet, every 6 (six) hours., Disp: , Rfl: isosorbide mononitrate ER (Imdur) 30 mg 24 hr tablet, Take 1 tablet (30 mg) by mouth in the morning. Do not crush or chew., Disp: 90 tablet, Rfl: 3 levothyroxine (Synthroid, Levoxyl) 100 mcg tablet, Take 100 mcg by mouth before breakfast., Disp: , Rfl: liothyronine (Cytomel) 25 mcg tablet, Take 1 tablet by mouth in the morning., Disp: , Rfl: lisinopril 10 mg tablet, Take 1 tablet (10 mg) by mouth in the morning., Disp: 90 tablet, Rfl: 3 lovastatin (Mevacor) 20 mg tablet, Take 20 mg by mouth in the m (more content not included)... [facility] 01-05-2023 Note D/W Dr Kwok - MARY JO a nd he agrees that pt would benefit from perm pacemaker implantation, will send orders and staff to update pt. I had already d/w pt regarding possible need for PPM and risks vs benefits- D/W pt risks including but not limited to: Bleeding/bruising, infection, blood clot or damage to a blood vessel, abnormal heart rhythm, chest pain, heart attack, sudden damage to vessel and/or heart, kidney damage from contrast, allergic reaction to medications/ or contrast, stroke, . [facility] 01-01-2023 Note Continue coreg 6.25 mg bid [facility] 01-01-2023 Note Pt with noted bradyc ardia with heart rates in 40-50's with noted lightheadedness, dizziness, near syncope. 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 She voiced understanding and agreement [facility] 01-01-2023 Note Patient here c/o bra dycardia in the 40's. She was at PT recently and HR was 42. She said they advised her to go to the ED but she did not. C/o chest pressure. She was started on Ranexa at last visit in Oct by Dr. Kwok. She isn't sure if she's still taking it or not. She's trying to tolerate cpap at night. Review of Systems Constitutional: Positive for diaphoresis and malaise/fatigue. Cardiovascular: Positive for chest pain ( pressure ), dyspnea on exertion, leg swelling and palpitations. Respiratory: Positive for shortness of breath and snoring. Hematologic/Lymphatic: Bruises/bleeds easily. Musculoskeletal: Positive for back pain, muscle weakness and myalgias. Neurological: Positive for excessive daytime sleepiness and headaches. All other systems reviewed and are negative. [facility] 01-01-2023 Note [facility] CARDIOLOGY PROGR ESS NOTE HPI: Vero Sadler is a 72 y.o. female here for No chief complaint on file. Patient here c/o bradycardia in the 40's. She was at PT recently and HR was 42. She said they advised her to go to the ED but she did not. C/o chest pressure. She was started on Ranexa at last visit in Oct by Dr. Kwok, but she never picked it up or started taking ranexa. She's trying to tolerate cpap at night, but is only able to wear it about 1 hour before it wakes her up. Admits lightheadedness/ dizziness and near syncope at times. States symptoms occur when up and walking, and sometimes at rest, position changes do not precipitate lightheadedness/dizziness. Review of Systems Constitutional: Positive for diaphoresis and malaise/fatigue. Cardiovascular: Positive for chest pain ( pressure ), dyspnea on exertion, leg swelling and palpitations. Respiratory: Positive for shortness of breath and snoring. Hematologic/Lymphatic: Bruises/bleeds easily. Musculoskeletal: Positive for back pain, muscle weakness and myalgias. Neurological: Positive for excessive daytime sleepiness and headaches. All other systems reviewed and are negative. Visit Vitals BP 150/59 (BP Location: Left wrist, Patient Position: Sitting) Pulse (!) 45 Ht 1.676 m (5' 6 ) Wt (!) 142 kg (314 lb) LMP (LMP Unknown) SpO2 96% BMI 50.68 kg/m??? OB Status Hysterectomy Smoking Status Former BSA 2.57 m??? Allergies Allergen Reactions Penicillins Other Yeast infection Medications: Current Outpatient Medications on File Prior to Visit Medication Sig Dispense Refill albuterol 90 mcg/actuation inhaler Inhale 2 puffs every 4 (four) hours if needed for shortness of breath. aspirin 81 mg EC tablet Take 81 mg by mouth in the morning. bumetanide (Bumex) 1 mg tablet Take 1 tablet (1 mg) by mouth in the morning. 90 tablet 3 calcium carbonate-vitamin D3 600 mg-25 mcg (1,000 unit) capsule Take 1,000 Units by mouth in the morning. 120 capsule 3 carvedilol (Coreg) 12.5 mg tablet Take 1 tablet (12.5 mg) by mouth in the morning and at bedtime. (Patient taking differently: Take 6.25 mg by mouth in the morning and at bedtime.) 60 tablet 0 diclofenac (Voltaren) 75 mg EC tablet Take 75 mg by mouth in the morning and at bedtime. Do not crush, chew, or split. hydrALAZINE (Apresoline) 100 mg tablet Take 100 mg by mouth in the morning, at noon, and at bedtime. hyoscyamine (Levsin/SL) 0.125 mg SL tablet every 6 (six) hours. isosorbide mononitrate ER (Imdur) 30 mg 24 hr tablet Take 1 tablet (30 mg) by mouth in the morning. Do not crush or chew. 90 tablet 3 levothyroxine (Synthroid, Levoxyl) 100 mcg tablet Take 100 mcg by mouth before breakfast. liothyronine (Cytomel) 25 mcg tablet Take 1 tablet by mouth in the morning. lisinopril 10 mg tablet Take 1 tablet (10 mg) by mouth in the morning. 90 tablet 3 lovastatin (Mevacor) 20 mg tablet Take 20 mg by mouth in the morning. omega 4-fup-zhu-fish oil 350 mg-235 mg- 90 mg-597 mg capsule,delayed release(DR/EC) Take 1 capsule by mouth in the morning. pantoprazole (ProtoNix) 40 mg EC tablet Take 1 tablet by mouth in the morning. revefenacin (Yupelri) 175 mcg/3 mL nebulizer solution Take 175 mcg by nebulization in the morning. [DISCONTINUED] clotrimazole-betamethasone (Lotrisone) cream Apply 1 Application topically if needed. [DISCONTINUED] mometasone (Elocon) 0.1 % cream [DISCONTINUED] ranolazine (Ranexa) 500 mg 12 hr tablet Take 1 tablet (500 mg) by mouth in the morning and at bedtime. Do not crush, chew, or split. (Patient not taking: Reported on 01/01/2023) 60 tablet 11 [DISCONTINUED] sodium polystyrene sulfonate (Kayexalate) powder Take 15 grams by mouth daily. 454 g 11 [DISCONTINUED] sulfamethoxazole-trimethoprim (Bactrim DS) 800-160 mg tablet Take 1 tablet by mouth in the morning and at bedtime for 7 days. (Patient not taking: Reported on 01/01/2023) 14 tablet 0 No current facility-administered medications on file prior to visit. Physical Exam: Constitutional: Appearance: Normal appearance. Without apparent distress, obese HENT: Head: Normocephalic and atraumatic. Nose: Nose normal. Mouth/Throat: Mouth: Mucous membranes are moist. Eyes: Extraocular Movements: Extraocular movements intact. Conjunctiva/sclera: Conjunctivae normal. Neck: Vascular: No JVD. Cardiovascular: Rate and Rhythm: bradycardia-rhythm. Pulses: Dorsalis pedis pulses are 3 on the right side and 3on the left side. Posterior tibial pulses are 3 on the right side and 3 on the left side. Heart sounds: Normal heart sounds, S1 normal and S2 normal. Pulmonary: Effort: Pulmonary effort is normal. Breath sounds: Normal breath sounds. Abdominal: General: Bowel sounds are normal. Palpations: Abdomen is soft. Musculoskeletal: General: Normal range of motion. Ambulatory via walker Cervical back: Normal range of motion. Right lower leg: Non pitting edema. Left lowe (more content not included)... [facility] 12-22-2022 Note [facility] Interventional Pain Management SUBJECTIVE: Subjective 12/22/22 CC: Chief Complaint Patient presents with Follow-up Vertiflex at L3-4 and L4-5 Pain Assessment Pain Assessment: 0-10 Pain Score: 4 Pain Type: Chronic pain Pain Location: Back Pain Orientation: Lower Pain Descriptors: Aching, Sharp Pain Frequency: Constant/continuous Pain Onset: Ongoing Clinical Progression: Gradually improving Aggravating Factors: Bending, Standing, Walking Pain Interventions: Rest 72 year old female here to follow up Vertiflex. Patient denies issues with incisions she is napping cleaning incisions. She reports Dermabond and Steri-Strips fell off a few days ago. Patient reports significant improvement in stand time and walk distance. She is ambulating much better and for longer without as severe pain. She reports surgical pain has begun to improve. Per prior note 72 year old female here to follow up Vertiflex at L3-4 and L4-5. Patient reports that she did not need pain medications postoperatively. She reports more predominant right anterior rib pain that is improving. She reports this was initially painful especially while laughing. She states that this is getting better. Patient reports lumbar pain and incisional pain is improving. Denies any issues with incisions has questions about Steri-Strips. Patient reports that she has noticed she is able to stand up straighter. She has not tested out stand time and walk distance yet. Patient denies any fevers chills nausea or vomiting. Per prior note: 72 year old female here to follow up s/p TFESI L4/5. She had complete relief of radicular pain in right leg but continues to have low back pain that is worse with standing and walking she has become more functionally limited and has to take sit down and take breaks with full resolution of pain symptoms.. Spacers were discussed at last visit. Since then she had a bone scan and EP study both of which were normal. She is on aspirin 81mg daily. States she is able to stand just a few minutes and can walk less than a minute without breaks. Per prior note: 72 year old female here to follow up lumbar xray and dexa scan. Patients results show osteopenia worse in femoral neck . Lumbar Xray showes advance multilevel disc space loss. Patient is currently seeing nephrology for her ckd III/b . Patient also is seeing cardiology for arrhthymias which are not persistent anymore, patient is to follow up with cardiology in october to assess next step. She is scheduled for a sleep apnea test to determine if this might be the reason for her arrhythmias. Patient states she had an episode of arrhythmia last night. Patients pain is currently controlled by resting when she has her low back pain flare. Currently her pain starts in her right low back and will radiate slightly past her knees. Patient is no longer in physical therapy due to lack of improvement. Per prior note: 72 year old female here to follow up PT, since last visit she has seen cardiology resume specialist for [place]. patient reports that overall she is doing much better following mild. She reports leg pain has resolved. Patient has more mild low back pain that worsens with standing and walking. Patient states that she is being worked up by cardiology because of arrhythmia. Patient reports overall she is doing well but she would like to continue to improve her back pain Per prior note: This is a 72-year-old female presenting to follow-up mild L3-4 and L4-5. Overall patient is reporting 50% improvement in back pain. She reports being able to stand longer and walk further. She was able to walk around [employer] which she previously was not able to do without taking long breaks. Reports improved sleep at night. Her back pain is significantly improved laying flat. Patient denies issues with incisions other than some bruising. Steri-Strips are still intact. Denies any fevers chills . Denies any drainage or discharge from incision. Patient reports that she had a poor perioperative experience with placement of her IV. She reports missed placement of IV and reports when dressing was taken off her skin tore. She reports this is scabbed over. Patient reports that she took Percocet postoperatively did not tolerate this has been taking Tylenol since. She plans to dispose of Percocet Per prior note: 72 year old female here to follow up 04/01/22 - Bilateral radiofrequency ablation L3-4 and L4-5. Patient states that she did not have significant pain relief since procedure. She is still having significant back pain that she states has worsened. Her leg pain has improved and has not worsened since procedure. She states that the back pain is spread out through the entire lumbar region. She describes the pain as sharp, shooting, aching, throbbing. She states that the pain is worse with standing and walking, and that she is still havi (more content not included)... [facility] 12-15-2022 Note Division of Nephrolo gy Vero Sadler is a 72 y.o. female who presents to nephrology clinic for evaluation of CKD. PMHx sig for HTN, COPD, HFpEF, chronic bilat LE edema, chronic back pain. she was diagnosed with HTN > 10 y ago . BP control has been uncontrolled. At home bp runs 140-160s.. she denies cp, sob, headache, blurry vision, orthostasis. It is hard to understand her kidney function chronicity as I only can review one lab result from 01/2022. Based on that blood work she has CKD stage 3/b. Pt reported that she was told that she had abnormal kidney function since 6-8 y ago, but she never saw kidney doctor. She was recently taken off spironolactone by her director executive communications. She is on po bumex daily. For her BP she is on hydralazine, amlodipine and coreg. She reported that few y ago amlodipine cause her volume overload and she was admitted to the hospital and underwent IV diuresis. she denies any h/o nephrolithiasis, gout, NSAID use, OTC herbal medications or supplements, past drug abuse, hepatitis B/C. He has not received imaging studies with contrast. No dysuria, increased frequency or hesitancy, hematuria, frothy urine. Interval events Since last I saw her, she was doing fairly well, she denied any CP, PATEL, no worsening BLE. her BP been fluctuate, she reported BP in the 160s sometimes, she is only taking her Bumex when she stays home and have access to bathroom( which is about twice weekly). She was started on lisinopril and she is tolerating this medication well. Past Medical History: Diagnosis Date Arrhythmia Arthritis Chronic kidney disease COPD (chronic obstructive pulmonary disease) ([facility]) Hypertension Myocardial infarction ([facility]) Obstructive sleep apnea 10/02/2022 SOBIA=17.7 events/hour; Pranav SaO2=76%; Wznxxv=082.0 lbs; BMI=52.7 kg/m2, Home Sleep Apnea Testing on 09/25/[address] [facility] Family History Problem Relation Name Age of Onset Other (malig neoplastic disease) Mother Coronary artery disease Mother Other (cerebrovascular accident) Mother Other (renal disease) Mother Other (malig neoplastic disease) Father Hypertension Father Hyperlipidemia Father Other (malig neoplastic disease) Daughter Social History Social History Narrative Not on file Medications: Current Outpatient Medications Medication Sig Dispense Refill albuterol 90 mcg/actuation inhaler Inhale 2 puffs every 4 (four) hours if needed for shortness of breath. aspirin 81 mg EC tablet Take 81 mg by mouth in the morning. bumetanide (Bumex) 1 mg tablet Take 1 tablet (1 mg) by mouth in the morning. 90 tablet 3 calcium carbonate-vitamin D3 600 mg-25 mcg (1,000 unit) capsule Take 1,000 Units by mouth in the morning. 30 capsule 11 clotrimazole-betamethasone (Lotrisone) cream Apply 1 Application topically if needed. diclofenac (Voltaren) 75 mg EC tablet Take 75 mg by mouth in the morning and at bedtime. Do not crush, chew, or split. hydrALAZINE (Apresoline) 100 mg tablet Take 100 mg by mouth in the morning, at noon, and at bedtime. hyoscyamine (Levsin/SL) 0.125 mg SL tablet every 6 (six) hours. isosorbide mononitrate ER (Imdur) 30 mg 24 hr tablet Take 1 tablet (30 mg) by mouth in the morning. Do not crush or chew. 90 tablet 3 levothyroxine (Synthroid, Levoxyl) 100 mcg tablet Take 100 mcg by mouth before breakfast. liothyronine (Cytomel) 25 mcg tablet Take 1 tablet by mouth in the morning. lisinopril 5 mg tablet TAKE 1 TABLET BY MOUTH EVERY DAY IN THE MORNING 90 tablet 1 lovastatin (Mevacor) 20 mg tablet Take 20 mg by mouth in the morning. mometasone (Elocon) 0.1 % cream omega 9-wnj-kpj-fish oil 350 mg-235 mg- 90 mg-597 mg capsule,delayed release(DR/EC) Take 1 capsule by mouth in the morning. pantoprazole (ProtoNix) 40 mg EC tablet Take 1 tablet by mouth in the morning. ranolazine (Ranexa) 500 mg 12 hr tablet Take 1 tablet (500 mg) by mouth in the morning and at bedtime. Do not crush, chew, or split. 60 tablet 11 revefenacin (Yupelri) 175 mcg/3 mL nebulizer solution Take 175 mcg by nebulization in the morning. sodium polystyrene sulfonate (Kayexalate) powder Take 15 grams by mouth daily. 454 g 11 amLODIPine (Norvasc) 10 mg tablet Take 1 tablet (10 mg) by mouth in the morning. 30 tablet 0 carvedilol (Coreg) 12.5 mg tablet Take 1 tablet (12.5 mg) by mouth in the morning and at bedtime. 60 tablet 0 No current facility-administered medications for this visit. Physical examination: Vitals: 12/15/22 0839 BP: 158/61 BP Location: Left arm Patient Position: Sitting BP Cuff Size: Large adult Pulse: 51 Resp: 16 Weight: (!) 144 kg (318 lb 4.8 oz) Height: 1.676 m (5' 6 ) Gen: Alert, NAD HENT: Neck is supple, no LAD CV: RRNR, no murmurs, no rubs Pulm: Lungs CTA bl GI: Abdomen soft, NT, ND Extr: warm, no edema bl LEs Skin: No rash on exposed skin Neuro: Alert, conversive, nonfocal Laboratory: No results found f (more content not included)... [facility] 12-08-2022 Note [facility] Interventional Pain Management SUBJECTIVE: Subjective 12/08/22 CC: Chief Complaint Patient presents with Follow-up one week post op -Vertiflex at L3-4 and L4-5 Pain Assessment Pain Assessment: 0-10 Pain Score: 6 Pain Type: Chronic pain Pain Location: Rib cage Pain Orientation: Right Pain Descriptors: Sharp, Stabbing Pain Frequency: Constant/continuous Pain Onset: Ongoing Clinical Progression: Gradually improving Aggravating Factors: Walking, Standing, Bending Pain Interventions: Rest 72 year old female here to follow up Vertiflex at L3-4 and L4-5. Patient reports that she did not need pain medications postoperatively. She reports more predominant right anterior rib pain that is improving. She reports this was initially painful especially while laughing. She states that this is getting better. Patient reports lumbar pain and incisional pain is improving. Denies any issues with incisions has questions about Steri-Strips. Patient reports that she has noticed she is able to stand up straighter. She has not tested out stand time and walk distance yet. Patient denies any fevers chills nausea or vomiting. Per prior note: 72 year old female here to follow up s/p TFESI L4/5. She had complete relief of radicular pain in right leg but continues to have low back pain that is worse with standing and walking she has become more functionally limited and has to take sit down and take breaks with full resolution of pain symptoms.. Spacers were discussed at last visit. Since then she had a bone scan and EP study both of which were normal. She is on aspirin 81mg daily. States she is able to stand just a few minutes and can walk less than a minute without breaks. Per prior note: 72 year old female here to follow up lumbar xray and dexa scan. Patients results show osteopenia worse in femoral neck . Lumbar Xray showes advance multilevel disc space loss. Patient is currently seeing nephrology for her ckd III/b . Patient also is seeing cardiology for arrhthymias which are not persistent anymore, patient is to follow up with cardiology in october to assess next step. She is scheduled for a sleep apnea test to determine if this might be the reason for her arrhythmias. Patient states she had an episode of arrhythmia last night. Patients pain is currently controlled by resting when she has her low back pain flare. Currently her pain starts in her right low back and will radiate slightly past her knees. Patient is no longer in physical therapy due to lack of improvement. Per prior note: 72 year old female here to follow up PT, since last visit she has seen cardiology resume specialist for [place]. patient reports that overall she is doing much better following mild. She reports leg pain has resolved. Patient has more mild low back pain that worsens with standing and walking. Patient states that she is being worked up by cardiology because of arrhythmia. Patient reports overall she is doing well but she would like to continue to improve her back pain Per prior note: This is a 72-year-old female presenting to follow-up mild L3-4 and L4-5. Overall patient is reporting 50% improvement in back pain. She reports being able to stand longer and walk further. She was able to walk around [email or web address] which she previously was not able to do without taking long breaks. Reports improved sleep at night. Her back pain is significantly improved laying flat. Patient denies issues with incisions other than some bruising. Steri-Strips are still intact. Denies any fevers chills . Denies any drainage or discharge from incision. Patient reports that she had a poor perioperative experience with placement of her IV. She reports missed placement of IV and reports when dressing was taken off her skin tore. She reports this is scabbed over. Patient reports that she took Percocet postoperatively did not tolerate this has been taking Tylenol since. She plans to dispose of Percocet Per prior note: 72 year old female here to follow up 04/01/22 - Bilateral radiofrequency ablation L3-4 and L4-5. Patient states that she did not have significant pain relief since procedure. She is still having significant back pain that she states has worsened. Her leg pain has improved and has not worsened since procedure. She states that the back pain is spread out through the entire lumbar region. She describes the pain as sharp, shooting, aching, throbbing. She states that the pain is worse with standing and walking, and that she is still having to use her walker more than she would like. She states that she will have significant pain after 5 to 10 minutes of standing. The pain is better with rest, sitting, laying down. Reports no pain while sitting, flexing forward or being in a recumbent position. Denies any new onset numbness, weakness, incontinence. Per prior note: This is a 72 year old female ret (more content not included)... [facility] 11-30-2022 Note No concerns as per call back josefa delines [facility] 11-30-2022 Note Patient: Vero boudreaux Procedure Summary Date: 11/30/22 Room / Location: [facility] OPERATING ROOM 02 / [facility] Operating Room Anesthesia Start: 742 Anesthesia Stop: 925 Procedure: L3-L5 SPINE DECOMPRESSION , USING VERTIFLEX SUPERION INTERSPINOUS SPACER (Spine Lumbar) Diagnosis: Spinal stenosis of lumbar region with neurogenic claudication (Spinal stenosis of lumbar region with neurogenic claudication [M48.062]) Surgeons: Jose Angel Meehan MD Responsible Provider: Heriberto Tan MD Anesthesia Type: MAC ASA Status: 3 Anesthesia Type: MAC Vitals Value Taken Time BP 156/50 11/30/22 1030 Temp 36 ???C (96.8 ???F) 11/30/22 0915 Pulse 55 11/30/22 1030 Resp 16 11/30/22 1030 SpO2 96 % 11/30/22 1030 Anesthesia Post Evaluation Patient location during evaluation: PACU Patient participation: complete - patient participated Level of consciousness: awake and alert Pain management: adequate Airway patency: patent Cardiovascular status: acceptable and hemodynamically stable Respiratory status: acceptable Hydration status: acceptable Patient is hemodynamically stable and is able to be discharged from PACU per anesthesia protocol. No notable events documented. [facility] 11-30-2022 Note Patient: Vero boudreaux Procedure Information Date/Time: 11/30/22 0730 Procedure: L3-L5 SPINE DECOMPRESSION , USING VERTIFLEX SUPERION INTERSPINOUS SPACER (Spine Lumbar) - C-ARM, [employer], FIRST CASE, REP NOTIFIED 11/18 JK Location: [facility] OPERATING ROOM 02 / [facility] Operating Room Surgeons: Jose Angel Meehan MD Relevant Problems Anesthesia (+) Obstructive sleep apnea Cardio >4 METs denies active chest pain today. (+) Essential hypertension (+) Nonsustained paroxysmal ventricular tachycardia (CMS/HCC) Patient had event monitor 02/24/2022 demonstrating runs of nonsustained VTach and Atach. Electrophysiology procedure was performed in an attempt to induce Vtach, found to be non-inducible. ECHO 07/19/19: preserved LV function, grade II DD, biatrial enlargement, mild TR, moderately elevated right sided pressures (RVSP 45-60) ??? Cardiac cath 07/2016 FINAL IMPRESSION:??? 1. Normal epicardial arteries.??? 2. 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 ??? Exercise stress test 01/26/2022: 1. ???Moderate sized, moderate severity, fixed defect in anterior wall LAD distribution???-there are no wall motion abnormalities noted, ejection fraction is normal. ???This cannot be anything but breast artifact 2. ???No reversible ischemia 3. ???Dilated left ventricle 4. ???Normal global left ventricular systolic function with an EF of 69% 5. ???No transient ischemic dilation 6. ???Normal exercise stress test ??? Physical Exam Airway Mallampati: II TM distance: >3 FB Neck ROM: full Cardiovascular - normal exam Dental - normal exam Pulmonary (+) decreased breath sounds Abdominal - normal exam Anesthesia Plan ASA 3 MAC (Prone MAC with standard monitors) The patient is not a current smoker. Patient was not previously instructed to abstain from smoking on day of procedure. Patient did not smoke on day of procedure. Education provided regarding risk of obstructive sleep apnea. intravenous induction Postoperative administration of opioids is intended. Anesthetic plan and risks discussed with patient. Use of blood products discussed with patient who consented to blood products. Plan discussed with attending. Additional Equipment Requests [facility] 11-25-2022 Note IF YOU ARE GOING [place] AFTER YOUR SURGERY OR PROCEDURE, FOR YOUR SAFETY, YOUR SURGERY WILL BE CANCELLED IF BOTH OF THE FOLLOWING ARE NOT AVAILABLE: An adult xm1 tank driver over the age of 18, that can receive information about your care after surgery, and drive you home. A responsible adult to stay with you for 24 hours in case of an emergency. Can be same as above. The highest risk of complications is within the first 24 hours after sedation/anesthesia. Nothing to eat or drink after midnight the night before surgery. This includes gum, candy, mints, and lozenges. No alcohol, marijuana, or tobacco products including vaping for 24 hours. Please brush your teeth; don't swallow the toothpaste or water. If you use dentures, wear them but do not use paste. Please leave any other removable dental hardware at home. Do not put in contact lenses. Do not wear perfume, make-up, nail belarusian, or lotions on the day of your surgery or procedure. Follow skin-prep/wipe instructions as below if required. HOLD ALL VITAMINS AND SUPPLEMENTS STARTING 11-26. HOLD ASPIRIN, BUMEX, LISINOPRIL DAY OF SURGERY. TAKE YUPELRI, SYNTHROID, IMDUR, HYDRALAZINE DAY OF SURGERY. Bring with you: *Insurance card *Photo ID *Medication list *Co-pay for visit/prescriptions If applicable: *Rescue inhalers *Green bracelet from lab *CPAP or BiPAP machine, if staying overnight *Any braces, splints, or equipment ordered preoperatively *Remote controls for implanted devices Leave at home: *Purse/Wallet/St[place]ard- unless needed for co-pay *Cell phone (can leave with family/friend or place in locker if needed) *Jewelry (including piercings and wedding bands) *If not possible, ask the person who is waiting with you to keep them Children under the age of 12 will not be allowed into patient care areas. We will call you between 3pm and 4pm the day before your surgery to give you an arrival time. If you do not receive this call, have any questions, or need to make any changes, please call [phone]. Notify your surgeon if you develop any illness such as a cold, cough, fever, sore throat or vomiting between now and your surgery. Thank you for entrusting us with your care. [facility] Surgical Services Team [facility] 11-06-2022 Note [facility] Interventional Pain Management SUBJECTIVE: Subjective 11/06/22 CC: Chief Complaint Patient presents with Follow-up 4 wk F/U TFESI Pain Assessment Pain Assessment: 0-10 Pain Score: 8 Pain Type: Chronic pain Pain Location: Back Pain Orientation: Right, Left, Lower Pain Descriptors: Sharp Pain Frequency: Intermittent (0/10 only when sitting) Pain Onset: Ongoing Clinical Progression: Not changed Aggravating Factors: Walking, Standing Pain Interventions: Rest, Shower 72 year old female here to follow up s/p TFESI L4/5. She had complete relief of radicular pain in right leg but continues to have low back pain that is worse with standing and walking she has become more functionally limited and has to take sit down and take breaks with full resolution of pain symptoms.. Spacers were discussed at last visit. Since then she had a bone scan and EP study both of which were normal. She is on aspirin 81mg daily. States she is able to stand just a few minutes and can walk less than a minute without breaks. Per prior note: 72 year old female here to follow up lumbar xray and dexa scan. Patients results show osteopenia worse in femoral neck . Lumbar Xray showes advance multilevel disc space loss. Patient is currently seeing nephrology for her ckd III/b . Patient also is seeing cardiology for arrhthymias which are not persistent anymore, patient is to follow up with cardiology in october to assess next step. She is scheduled for a sleep apnea test to determine if this might be the reason for her arrhythmias. Patient states she had an episode of arrhythmia last night. Patients pain is currently controlled by resting when she has her low back pain flare. Currently her pain starts in her right low back and will radiate slightly past her knees. Patient is no longer in physical therapy due to lack of improvement. Per prior note: 72 year old female here to follow up PT, since last visit she has seen cardiology resume specialist for [place]. patient reports that overall she is doing much better following mild. She reports leg pain has resolved. Patient has more mild low back pain that worsens with standing and walking. Patient states that she is being worked up by cardiology because of arrhythmia. Patient reports overall she is doing well but she would like to continue to improve her back pain Per prior note: This is a 72-year-old female presenting to follow-up mild L3-4 and L4-5. Overall patient is reporting 50% improvement in back pain. She reports being able to stand longer and walk further. She was able to walk around [employer] which she previously was not able to do without taking long breaks. Reports improved sleep at night. Her back pain is significantly improved laying flat. Patient denies issues with incisions other than some bruising. Steri-Strips are still intact. Denies any fevers chills . Denies any drainage or discharge from incision. Patient reports that she had a poor perioperative experience with placement of her IV. She reports missed placement of IV and reports when dressing was taken off her skin tore. She reports this is scabbed over. Patient reports that she took Percocet postoperatively did not tolerate this has been taking Tylenol since. She plans to dispose of Percocet Per prior note: 72 year old female here to follow up 04/01/22 - Bilateral radiofrequency ablation L3-4 and L4-5. Patient states that she did not have significant pain relief since procedure. She is still having significant back pain that she states has worsened. Her leg pain has improved and has not worsened since procedure. She states that the back pain is spread out through the entire lumbar region. She describes the pain as sharp, shooting, aching, throbbing. She states that the pain is worse with standing and walking, and that she is still having to use her walker more than she would like. She states that she will have significant pain after 5 to 10 minutes of standing. The pain is better with rest, sitting, laying down. Reports no pain while sitting, flexing forward or being in a recumbent position. Denies any new onset numbness, weakness, incontinence. Per prior note: This is a 72 year old female returning to follow up after procedure LESI L4-5. The patient reports pain has been improved by 50% in the low back and over 80% in the legs. Primary pain complaint localized low back pain. This is persistent at rest but does worsen with standing and walking. Pain subsides slightly with sitting or forward flexion. Patient does use a walker Per prior note: Referral Source: Marta Yueng HEALTH COORDINATOR (Neurosurgery) CC: low back pain The patient is a 71 year old female who presents with a chief complaint of low back pain. Pain is located in the low back and radiates to the feet. The patient has had this pain for years. The initiating event was reported as progressively (more content not included)... [facility] 10-27-2022 Note [place] Cardiology Consul t Note Reason for visit: Chest pain 10/27/22 Patient stated that she had some chest pain which she described as chest pressure. this is very for and there is no associated radiation. previous patient underwent the EP study for nonsustained VT which did not induce any sustained ventricular tachycardia. EKG 10/27/2022 shows sinus rhythm with no evidence of ischemia EP Study 07/22/22 AHms 74 HVms 47 VERPms 600/240, VA condunction+ AV Wenkebach ms 340 AH jump ms NA AVNERP ms Straight to AERP AERP ms 600/290 Prior HPI: Vero Sadler is a 72 y.o. year old with past medical history of resistant hypertension, sinus bradycardia. She was seen by DR Restrepo after she had been observed to have low HR when she was seen by pain team for nerve ablation for back pain. This led to event monitor which revealed NS-VT as well as NS-AT. She feesl the AT episodes. TESTING: Event monitor that was placed from 04/27/2019 to 04/15/20112022 revealed the presence of nonsustained ventricular tachycardia as well as episodes of nonsustained atrial tachycardia's. Episode of nonsustained atrial tachycardia was noted on 02/24/2022 at 9:23 PM as well as another monitor on 03/01/2020 to 03/06/2022 as well as 03/07/2020 to 03/10/2022. Reportedly there were episodes of wide-complex tachycardia that was noted on 03/12/2022 at 9:51 PM which appeared more like an idioventricular rhythm lasted for approximately 8seconds. ECHO 07/19/19: preserved LV function, grade II DD, biatrial enlargement, mild TR, moderately elevated right sided pressures (RVSP 45-60) Cardiac cath 07/2016 FINAL IMPRESSION: 1. Normal epicardial arteries. 2. 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 Exercise stress test 01/26/2022: 1. Moderate sized, moderate severity, fixed defect in anterior wall LAD distribution-there are no wall motion abnormalities noted, ejection fraction is normal. This cannot be anything but breast artifact 2. No reversible ischemia 3. Dilated left ventricle 4. Normal global left ventricular systolic function with an EF of 69% 5. No transient ischemic dilation 6. Normal exercise stress test PMH: Past Medical History: Diagnosis Date Arrhythmia Arthritis Chronic kidney disease COPD (chronic obstructive pulmonary disease) (CMS/HCC) Hypertension Myocardial infarction (CMS/HCC) Obstructive sleep apnea 10/02/2022 SOBIA=17.7 events/hour; Pranav SaO2=76%; Aoutwj=865.0 lbs; BMI=52.7 kg/m2, Home Sleep Apnea Testing on 09/25/[address] [facility] PSH: Past Surgical History: Procedure Laterality Date CARDIAC CATHETERIZATION EYE SURGERY CATARACT FOOT SURGERY HYSTERECTOMY SH: Social Determinants of Health Tobacco Use: Medium Risk (10/27/2022) Patient History Smoking Tobacco Use: Former Smokeless Tobacco Use: Never Passive Exposure: Never Alcohol Use: Not on file Financial Resource Strain: Not on file Food Insecurity: Not on file Transportation Needs: Not on file Physical Activity: Not on file Stress: Not on file Social Connections: Not on file Intimate Partner Violence: Not At Risk (09/22/2022) Humiliation, Afraid, Rape, and Kick questionnaire Fear of Current or Ex-Partner: No Emotionally Abused: No Physically Abused: No Sexually Abused: No Depression: Not at risk (09/22/2022) PHQ-2 PHQ-2 Score: 0 Housing Stability: Not on file Allergies: Allergies Allergen Reactions Penicillins Other Yeast infection Weight: 142kg Visit Vitals BP 142/62 (BP Location: Left arm, Patient Position: Sitting, BP Cuff Size: Large adult) Pulse (!) 48 Ht 1.651 m (5' 5 ) Wt (!) 142 kg (313 lb 9.6 oz) LMP (LMP Unknown) SpO2 98% BMI 52.19 kg/m??? OB Status Hysterectomy Smoking Status Former BSA 2.55 m??? Meds: Current Outpatient Medications on File Prior to Visit Medication Sig Dispense Refill albuterol 90 mcg/actuation inhaler Inhale 2 puffs every 4 (four) hours if needed for shortness of breath. aspirin 81 mg EC tablet Take 81 mg by mouth in the morning. bumetanide (Bumex) 1 mg tablet Take 1 tablet (1 mg) by mouth in the morning. 90 tablet 3 calcium carbonate-vitamin D3 600 mg-25 mcg (1,000 unit) capsule Take 1,000 Units by mouth in the morning. 30 capsule 11 clotrimazole-betamethasone (Lotrisone) cream APPLY SMALL AMOUNT TO AFFECTED AREA TWICE DAILY *USE SPARINGLY* diclofenac (Voltaren) 75 mg EC tablet Take 75 mg by mouth in the morning and at bedtime. Do not crush, chew, or split. furosemide (Lasix) 20 mg tablet only takes PRN hydrALAZINE (Apresoline) 100 mg tablet Take 100 mg by mouth in the morning, at noon, and at bedtime. levothyroxine (Synthroid, Levoxyl) 100 mcg tablet Take 100 mcg by mouth before breakfast. liothyronine (Cytomel) 25 mcg tablet Take 1 tablet by mouth in the morning. lisinopril 5 mg tablet TAKE 1 TABLET BY MOUTH EVERY DAY IN THE MORNING 60 tablet 1 lovastatin (Mev (more content not included)... [facility] 10-08-2022 Note Subjective s/p RT TF TRACEY L4/5 Patient reports Pain Level 2. Pre-procedure pain level 5 on 10/07/22. Denies complications, side effects, problems, or any questions about discharge instruction. Next appointment on 11/06/22 at [address] [facility] 09-24-2022 Note Pt given verbal and written instructions and demo of HSAT use. Pt to return unit to registration 09/[address] [facility] 09-22-2022 Note [facility] Interventional Pain Management SUBJECTIVE: Subjective 09/22/22 CC: Chief Complaint Patient presents with Follow-up DEXA scan Pain Assessment Pain Assessment: 0-10 Pain Score: 9 Pain Type: Chronic pain Pain Location: Back Pain Orientation: Right, Lower Pain Radiating Towards: across lower back, down right leg Pain Descriptors: Radiating, Throbbing, Shooting, Tightness, Cramping Pain Frequency: Constant/continuous Pain Onset: Ongoing Clinical Progression: Gradually worsening Aggravating Factors: Bending, Exercise, Kneeling, Squatting, Stairs, Standing, Stretching, Walking Result of Injury: No Work-Related Injury: No Pain Interventions: Rest, Shower 72 year old female here to follow up lumbar xray and dexa scan. Patients results show osteopenia worse in femoral neck . Lumbar Xray showes advance multilevel disc space loss. Patient is currently seeing nephrology for her ckd III/b . Patient also is seeing cardiology for arrhthymias which are not persistent anymore, patient is to follow up with cardiology in october to assess next step. She is scheduled for a sleep apnea test to determine if this might be the reason for her arrhythmias. Patient states she had an episode of arrhythmia last night. Patients pain is currently controlled by resting when she has her low back pain flare. Currently her pain starts in her right low back and will radiate slightly past her knees. Patient is no longer in physical therapy due to lack of improvement. Per prior note: 72 year old female here to follow up PT, since last visit she has seen cardiology resume specialist for [place]. patient reports that overall she is doing much better following mild. She reports leg pain has resolved. Patient has more mild low back pain that worsens with standing and walking. Patient states that she is being worked up by cardiology because of arrhythmia. Patient reports overall she is doing well but she would like to continue to improve her back pain Per prior note: This is a 72-year-old female presenting to follow-up mild L3-4 and L4-5. Overall patient is reporting 50% improvement in back pain. She reports being able to stand longer and walk further. She was able to walk around [employer] which she previously was not able to do without taking long breaks. Reports improved sleep at night. Her back pain is significantly improved laying flat. Patient denies issues with incisions other than some bruising. Steri-Strips are still intact. Denies any fevers chills . Denies any drainage or discharge from incision. Patient reports that she had a poor perioperative experience with placement of her IV. She reports missed placement of IV and reports when dressing was taken off her skin tore. She reports this is scabbed over. Patient reports that she took Percocet postoperatively did not tolerate this has been taking Tylenol since. She plans to dispose of Percocet Per prior note: 72 year old female here to follow up 04/01/22 - Bilateral radiofrequency ablation L3-4 and L4-5. Patient states that she did not have significant pain relief since procedure. She is still having significant back pain that she states has worsened. Her leg pain has improved and has not worsened since procedure. She states that the back pain is spread out through the entire lumbar region. She describes the pain as sharp, shooting, aching, throbbing. She states that the pain is worse with standing and walking, and that she is still having to use her walker more than she would like. She states that she will have significant pain after 5 to 10 minutes of standing. The pain is better with rest, sitting, laying down. Reports no pain while sitting, flexing forward or being in a recumbent position. Denies any new onset numbness, weakness, incontinence. Per prior note: This is a 72 year old female returning to follow up after procedure LESI L4-5. The patient reports pain has been improved by 50% in the low back and over 80% in the legs. Primary pain complaint localized low back pain. This is persistent at rest but does worsen with standing and walking. Pain subsides slightly with sitting or forward flexion. Patient does use a walker Per prior note: Referral Source: Marta Yeung CNP (Neurosurgery) CC: low back pain The patient is a 71 year old female who presents with a chief complaint of low back pain. Pain is located in the low back and radiates to the feet. The patient has had this pain for years. The initiating event was reported as progressively worsening slowly over years Since starting, the symptoms have worsened. The pain quality is sharp, stabbing, burning, throbbing. The pain is constant. Today, the pain intensity is rated as a 7 on a scale of 0-10. Patient reports associated symptoms of numbness, tingling down legs to feet; Alleviated with sitting, lying; Exacerbated with prolonged standing, walking (more content not included)... [facility] 09-08-2022 Note Division of Nephrolo lester Vero Sadler is a 72 y.o. female who presents to nephrology clinic for evaluation of CKD. PMHx sig for HTN, COPD, HFpEF, chronic bilat LE edema, chronic back pain. she was diagnosed with HTN > 10 y ago . BP control has been uncontrolled. At home bp runs 140-160s.. she denies cp, sob, headache, blurry vision, orthostasis. It is hard to understand her kidney function chronicity as I only can review one lab result from 01/2022. Based on that blood work she has CKD stage 3/b. Pt reported that she was told that she had abnormal kidney function since 6-8 y ago, but she never saw kidney doctor. She was recently taken off spironolactone by her director executive communications. She is on po bumex daily. For her BP she is on hydralazine, amlodipine and coreg. She reported that few y ago amlodipine cause her volume overload and she was admitted to the hospital and underwent IV diuresis. she denies any h/o nephrolithiasis, gout, NSAID use, OTC herbal medications or supplements, past drug abuse, hepatitis B/C. He has not received imaging studies with contrast. No dysuria, increased frequency or hesitancy, hematuria, frothy urine. Interval events Since last I saw her, she has no changes, her BP been well controlled except recently when she forget to take her meds sometimes. She denied any CP,PATEL,has BLE +3. Past Medical History: Diagnosis Date Arrhythmia Arthritis Chronic kidney disease COPD (chronic obstructive pulmonary disease) (CMS/HCC) Hypertension Myocardial infarction (CMS/HCC) Family History Problem Relation Name Age of Onset Other (malig neoplastic disease) Mother Coronary artery disease Mother Other (cerebrovascular accident) Mother Other (renal disease) Mother Other (malig neoplastic disease) Father Hypertension Father Hyperlipidemia Father Other (malig neoplastic disease) Daughter Social History Social History Narrative Not on file Medications: Current Outpatient Medications Medication Sig Dispense Refill albuterol 90 mcg/actuation inhaler Inhale 2 puffs every 4 (four) hours if needed for shortness of breath. aspirin 81 mg EC tablet Take 81 mg by mouth in the morning. bumetanide (Bumex) 1 mg tablet Take 1 tablet (1 mg) by mouth in the morning. 90 tablet 3 diclofenac (Voltaren) 75 mg EC tablet Take 75 mg by mouth in the morning and at bedtime. Do not crush, chew, or split. hydrALAZINE (Apresoline) 100 mg tablet Take 100 mg by mouth in the morning, at noon, and at bedtime. levothyroxine (Synthroid, Levoxyl) 100 mcg tablet Take 100 mcg by mouth before breakfast. liothyronine (Cytomel) 25 mcg tablet Take 1 tablet by mouth in the morning. lisinopril 5 mg tablet TAKE 1 TABLET BY MOUTH EVERY DAY IN THE MORNING 60 tablet 1 lovastatin (Mevacor) 20 mg tablet Take 20 mg by mouth in the morning. omega 9-ffo-ews-fish oil 350 mg-235 mg- 90 mg-597 mg capsule,delayed release(DR/EC) Take 1 capsule by mouth in the morning. revefenacin (Yupelri) 175 mcg/3 mL nebulizer solution Take 175 mcg by nebulization in the morning. sodium polystyrene sulfonate (Kayexalate) powder Take 15 grams by mouth daily. 454 g 11 amLODIPine (Norvasc) 10 mg tablet Take 1 tablet (10 mg) by mouth in the morning. 30 tablet 0 carvedilol (Coreg) 12.5 mg tablet Take 1 tablet (12.5 mg) by mouth in the morning and at bedtime. 60 tablet 0 No current facility-administered medications for this visit. Physical examination: Vitals: 09/08/22 0836 BP: 179/76 BP Location: Left arm Patient Position: Sitting BP Cuff Size: Large adult Pulse: 64 Resp: 16 Weight: (!) 144 kg (317 lb) Gen: Alert, NAD HENT: Neck is supple, no LAD CV: RRNR, no murmurs, no rubs Pulm: Lungs CTA bl GI: Abdomen soft, NT, ND Extr: warm, no edema bl LEs Skin: No rash on exposed skin Neuro: Alert, conversive, nonfocal Laboratory: No results found for this or any previous visit (from the past 168 hour(s)). Lab Results Component Value Date CALCIUM 9.3 04/21/2022 PHOS 2.9 04/24/2022 Lab Results Component Value Date WBC 6.9 07/17/2022 No results found for: IRON, TIBC, FERRITIN No results found for: LDL. Creatinine Trend: Lab Results Component Value Date CREATININE 1.78 (H) 04/21/2022 CREATININE 1.69 (H) 02/24/2022 Renal Imaging Renal US 04/29/22. FINDINGS: Ultrasound evaluation of the kidneys and bladder was performed. Right kidney: 10.3 cm in maximal length. No mass or collecting system dilatation. No definite stone. Left kidney: 5.7 cm in maximal length. No mass or collecting system dilatation. No definite stone. Bladder: Unremarkable fluid filled bladder. Bladder volume: 44 mL. IMPRESSION: 1. No acute abnormality. No definite stone or collecting system dilatation. Assessment and Plan: Ms. Vero Sadler is a 72 y.o. female with ckd stage 3/b likely due to HTN nephropathy. No prior urine study in our records. CKD stage 3/b-CKD4 - Her serum creatinine level i (more content not included)... [facility] 08-04-2022 Note [facility] Cardiology Clinic Note Chief Complaint: Patient is here today for a 3 month follow up HPI: Vero Sadler is a 72 y.o. female History of myocardial bridging, atrial tachycardia and nonsustained ventricular tachycardia here in routine follow-up. Cardiology ROS: Review of Systems Constitutional: Positive for diaphoresis and malaise/fatigue. Cardiovascular: Positive for chest pain, dyspnea on exertion, leg swelling and palpitations. Respiratory: Positive for shortness of breath. Hematologic/Lymphatic: Bruises/bleeds easily. Musculoskeletal: Positive for back pain, muscle weakness and myalgias. Neurological: Positive for headaches. All other systems reviewed and are negative. Past Medical History She has a past medical history of Arrhythmia, Arthritis, Chronic kidney disease, COPD (chronic obstructive pulmonary disease) (CMS/HCC), Hypertension, and Myocardial infarction (CMS/HCC). Surgical History She has a past surgical history that includes Eye surgery; Cardiac catheterization; Foot surgery; and Hysterectomy. Social History She reports that she quit smoking about 15 years ago. Her smoking use included cigarettes. She has never been exposed to tobacco smoke. She has never used smokeless tobacco. She reports that she does not currently use alcohol. No history on file for drug use. Family History Family History Problem Relation Name Age of Onset Other (malig neoplastic disease) Mother Coronary artery disease Mother Other (cerebrovascular accident) Mother Other (renal disease) Mother Other (malig neoplastic disease) Father Hypertension Father Hyperlipidemia Father Other (malig neoplastic disease) Daughter Allergies Penicillins Medications Current Outpatient Medications: albuterol 90 mcg/actuation inhaler, Inhale 2 puffs every 4 (four) hours if needed for shortness of breath., Disp: , Rfl: amLODIPine (Norvasc) 10 mg tablet, Take 1 tablet (10 mg) by mouth in the morning., Disp: 30 tablet, Rfl: 0 aspirin 81 mg EC tablet, Take 81 mg by mouth in the morning., Disp: , Rfl: bumetanide (Bumex) 1 mg tablet, Take 1 tablet (1 mg) by mouth in the morning., Disp: 90 tablet, Rfl: 3 carvedilol (Coreg) 12.5 mg tablet, Take 1 tablet (12.5 mg) by mouth in the morning and at bedtime., Disp: 60 tablet, Rfl: 0 diclofenac (Voltaren) 75 mg EC tablet, Take 75 mg by mouth in the morning and at bedtime. Do not crush, chew, or split., Disp: , Rfl: hydrALAZINE (Apresoline) 100 mg tablet, Take 100 mg by mouth in the morning, at noon, and at bedtime., Disp: , Rfl: levothyroxine (Synthroid, Levoxyl) 100 mcg tablet, Take 100 mcg by mouth before breakfast., Disp: , Rfl: liothyronine (Cytomel) 25 mcg tablet, Take 1 tablet by mouth in the morning., Disp: , Rfl: lisinopril 5 mg tablet, TAKE 1 TABLET BY MOUTH EVERY DAY IN THE MORNING, Disp: 30 tablet, Rfl: 1 lovastatin (Mevacor) 20 mg tablet, Take 20 mg by mouth in the morning., Disp: , Rfl: omega 0-gte-oep-fish oil 350 mg-235 mg- 90 mg-597 mg capsule,delayed release(DR/EC), Take 1 capsule by mouth in the morning., Disp: , Rfl: revefenacin (Yupelri) 175 mcg/3 mL nebulizer solution, Take 175 mcg by nebulization in the morning., Disp: , Rfl: sodium polystyrene sulfonate (Kayexalate) powder, Take 15 grams by mouth daily., Disp: 454 g, Rfl: 11 Last Recorded Vitals BP 132/72 (BP Location: Left arm, Patient Position: Sitting, BP Cuff Size: Large adult) Pulse 60 Ht 1.651 m (5' 5 ) Wt (!) 146 kg (321 lb) LMP (LMP Unknown) SpO2 95% BMI 53.42 kg/m??? Physical Examination: GENERAL: alert and oriented x3, well developed, in no acute distress. HEAD: atraumatic, normocephalic. EYES: MAG, EOMI. NECK: trachea midline, no JVD present, no carotid bruits present. CARDIAC: S1, S2 present. RRR. No murmur, rubs, or gallops. RESPIRATORY: CTAB, no increased effort of breathing, no rales, rhonchi, or wheezing. ABDOMEN: soft, nontender, nondistended. EXTREMITIES: no lower extremity edema, peripheral pulses are 2+ bilaterally. No rash/skin discoloration present. NEURO: strength/sensation equal and symmetric in bilateral upper and lower extremities. PSYCH: appropriate mood, affect, and judgement. TESTING: ECHO 07/19/19: preserved LV function, grade II DD, biatrial enlargement, mild TR, moderately elevated right sided pressures (RVSP 45-60) Cardiac cath 07/2016 FINAL IMPRESSION: 1. Normal epicardial arteries. 2. 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 Exercise stress test 01/26/2022: Conclusion: 1. Moderate sized, moderate severity, fixed defect in anterior wall LAD distribution -there are no wall motion abnormalities noted, ejection fraction is normal. This cannot be anything but breast artifact 2. No reversible ischemia 3. Dilated left ventricle 4. Normal global left ventricular systolic function with an EF of 69% 5. No transient ischemic dilation 6. Normal exercise st (more content not included)... [facility] 07-28-2022 Note [facility] Interventional Pain Management SUBJECTIVE: Subjective 07/28/22 CC: Chief Complaint Patient presents with Follow-up 2 month follow up Pain Assessment Pain Assessment: 0-10 Pain Score: 5 - Moderate pain Pain Type: Chronic pain Pain Location: Back Pain Orientation: Mid, Left Pain Radiating Towards: n/a Pain Descriptors: Sharp, Aching Pain Frequency: Constant/continuous Interference on Function: walking, standing for too long Pain Onset: Ongoing Clinical Progression: Gradually improving Aggravating Factors: Bending, Exercise, Stairs, Standing, Straightening, Stretching, Walking Result of Injury: No Work-Related Injury: No Response to Interventions: injections really helped 72 year old female here to follow up PT, since last visit she has seen cardiology resume specialist for VT. patient reports that overall she is doing much better following mild. She reports leg pain has resolved. Patient has more mild low back pain that worsens with standing and walking. Patient states that she is being worked up by cardiology because of arrhythmia. Patient reports overall she is doing well but she would like to continue to improve her back pain Per prior note: This is a 72-year-old female presenting to follow-up mild L3-4 and L4-5. Overall patient is reporting 50% improvement in back pain. She reports being able to stand longer and walk further. She was able to walk around [email or web address] which she previously was not able to do without taking long breaks. Reports improved sleep at night. Her back pain is significantly improved laying flat. Patient denies issues with incisions other than some bruising. Steri-Strips are still intact. Denies any fevers chills . Denies any drainage or discharge from incision. Patient reports that she had a poor perioperative experience with placement of her IV. She reports missed placement of IV and reports when dressing was taken off her skin tore. She reports this is scabbed over. Patient reports that she took Percocet postoperatively did not tolerate this has been taking Tylenol since. She plans to dispose of Percocet Per prior note: 72 year old female here to follow up 04/01/22 - Bilateral radiofrequency ablation L3-4 and L4-5. Patient states that she did not have significant pain relief since procedure. She is still having significant back pain that she states has worsened. Her leg pain has improved and has not worsened since procedure. She states that the back pain is spread out through the entire lumbar region. She describes the pain as sharp, shooting, aching, throbbing. She states that the pain is worse with standing and walking, and that she is still having to use her walker more than she would like. She states that she will have significant pain after 5 to 10 minutes of standing. The pain is better with rest, sitting, laying down. Reports no pain while sitting, flexing forward or being in a recumbent position. Denies any new onset numbness, weakness, incontinence. Per prior note: This is a 72 year old female returning to follow up after procedure LESI L4-5. The patient reports pain has been improved by 50% in the low back and over 80% in the legs. Primary pain complaint localized low back pain. This is persistent at rest but does worsen with standing and walking. Pain subsides slightly with sitting or forward flexion. Patient does use a walker Per prior note: Referral Source: Marta Yeung CNP (Neurosurgery) CC: low back pain The patient is a 71 year old female who presents with a chief complaint of low back pain. Pain is located in the low back and radiates to the feet. The patient has had this pain for years. The initiating event was reported as progressively worsening slowly over years Since starting, the symptoms have worsened. The pain quality is sharp, stabbing, burning, throbbing. The pain is constant. Today, the pain intensity is rated as a 7 on a scale of 0-10. Patient reports associated symptoms of numbness, tingling down legs to feet; Alleviated with sitting, lying; Exacerbated with prolonged standing, walking; interfere with ADLs of physical activity, work, walking, social activity. Patient unable to stand for more than a couple minutes before needing to sit or flex forward. Sitting or flexing forward almost completely alleviates pain symptoms. Patient is unable to lay flat in bed and has to sleep in a recliner. Past History of Treatments: Patient has tried other professional care of PT, pain management, Dr. Oleary at [facility], in past. Has had 3 injections, including radiofrequency ablation, with minimal relief Trialed medications: diclofenac Procedures performed previously: lumbar MBB/RFA 11/21/21 - interlaminar lumbar epidural at L4-5 over 80% relief of radicular symptoms, and 50% relief of low back pain 02/18/22 - bilateral lumbar medial branch block L3-4 and L4-5 80% rel (more content not included)... [facility] 07-22-2022 Note COMPREHENSIVE EP FANNY DY PROCEDURE NOTE DATE OF PROCEDURE: 07/22/2021 PERFORMING PHYSICIAN: Dr. Irvin Kwok PITCH WORKER: None INDICATIONS FOR PROCEDURE: 1. History of NSVT. CONSENT: Patient LOCATION: EP Lab PROCEDURAL SEDATION: Versed and Fentanyl. Monitoring: Cardiac telemetry, Blood pressure, continuous pulse oxymetry. Moderate sedation was administered by the sedation nurse under my supervision. Intraprocedural face to face sedation time: 46min. FLUOROSCOPY: 31s/10mGy PREPARATION: Preoperative antibiotics was administered. PROCEDURES PERFORMED: 1. Ultrasound guided vascular access for 5Fx2 venous sheaths as documented below in procedure note and image stored in PACS. 2. Comprehensive EP study which includes right atrial recording and pacing, His bundle recording and right ventricular recording and pacing. INDICATION: 72 y.o. year old with past medical history of resistant hypertension was seen by Dr Restrepo after she had been observed to have low HR when she was seen by pain team for nerve ablation for back pain. Event monitor that was placed from 04/27/2019 to 04/15/20112022 revealed the presence of nonsustained ventricular tachycardia as well as episodes of nonsustained atrial tachycardia's. Episode of nonsustained atrial tachycardia was noted on 02/24/2022 at 9:23 PM as well as another monitor on 03/01/2020 to 03/06/2022 as well as 03/07/2020 to 03/10/2022. Reportedly there were episodes of wide-complex tachycardia that was noted on 03/12/2022 at 9:51 PM which appeared more like an idioventricular rhythm lasted for approximately 8seconds.ECHO 07/19/19: preserved LV function, grade II DD, biatrial enlargement, mild TR, moderately elevated right sided pressures (RVSP 45-60). She was brought for EP study. PROCEDURE NOTE: The risks, benefits and alternatives of the procedure were discussed with the patient and family who agreed to proceed. Please refer to my office consult note for details of the discussion and of indications. Patient was brought to the EP lab in the post absorptive state. A procedural pause was performed verifying the patient, the procedure. The right groin was prepped and draped in the usual sterile fashion. Preoperative antibiotics was administered. Ultrasound was used to image the right femoral veins and it was noted to be patent and this was used for vessel entry as noted below. After infiltration with 1% lidocaine, 2 venous sheath was placed in the right. Details of cathetersplaced as follows. RFV: 5Fx2 RV CRD2 to His: Aurea Mendez/Lyndon, CRD2 Once catheter was in position, baseline intervals were noted as below. Baseline right ventricular programmed stimulation showed evidence of VA conduction. I performed VEST using 600ms and 400ms drive train. Singles, doubles and triple extra stimuli was introduced with no evidence of any ventricular tachycardia from RV apex as well as Rv inflow. EP study was performed from [facility]. No tachycardia could be induced. The patient appeared to tolerate the procedure well and was returned to his room in stable condition. No complications were immediately observed. AHms 74 HVms 47 VERPms 600/240, VA condunction+ AV Wenkebach ms 340 AH jump ms NA AVNERP ms Straight to AERP AERP ms 600/290 EBL: 5cc SPECIMEN REMOVED: None IMPRESSION: 1. EP study with and no inducible VT 2. No inducible tachycardia RECOMMENDATIONS: 1. Follow up with EP as needed. 2. LOOP monitor if symptoms persist. Irvin Kwok MD Cardiac Electrophysiology [facility] 07-22-2022 Note Patient: Vero boudreaux Procedure Information Date/Time: 07/22/22 1230 Procedure: Electrophysiology procedure Location: [facility] PROGRAM REP 1 EP / [facility] (Cath) Providers: Irvin Kwok MD Clinical information reviewed: Allergies Meds OB Status Physical Exam Airway Mallampati: II TM distance: >3 FB Neck ROM: full Cardiovascular Dental Pulmonary Abdominal Anesthesia Plan ASA 2 CSE Anesthetic plan and risks discussed with patient. Use of blood products discussed with patient who. Additional Equipment Requests [facility] 07-14-2022 Note gian [facility] 05-19-2022 Note [facility] Interventional Pain Management SUBJECTIVE: Subjective 05/19/22 CC: No chief complaint on file. This is a 72-year-old female presenting to follow-up mild L3-4 and L4-5. Overall patient is reporting 50% improvement in back pain. She reports being able to stand longer and walk further. She was able to walk around [employer] which she previously was not able to do without taking long breaks. Reports improved sleep at night. Her back pain is significantly improved laying flat. Patient denies issues with incisions other than some bruising. Steri-Strips are still intact. Denies any fevers chills . Denies any drainage or discharge from incision. Patient reports that she had a poor perioperative experience with placement of her IV. She reports missed placement of IV and reports when dressing was taken off her skin tore. She reports this is scabbed over. Patient reports that she took Percocet postoperatively did not tolerate this has been taking Tylenol since. She plans to dispose of Percocet Per prior note: 72 year old female here to follow up 04/01/22 - Bilateral radiofrequency ablation L3-4 and L4-5. Patient states that she did not have significant pain relief since procedure. She is still having significant back pain that she states has worsened. Her leg pain has improved and has not worsened since procedure. She states that the back pain is spread out through the entire lumbar region. She describes the pain as sharp, shooting, aching, throbbing. She states that the pain is worse with standing and walking, and that she is still having to use her walker more than she would like. She states that she will have significant pain after 5 to 10 minutes of standing. The pain is better with rest, sitting, laying down. Reports no pain while sitting, flexing forward or being in a recumbent position. Denies any new onset numbness, weakness, incontinence. Per prior note: This is a 72 year old female returning to follow up after procedure LESI L4-5. The patient reports pain has been improved by 50% in the low back and over 80% in the legs. Primary pain complaint localized low back pain. This is persistent at rest but does worsen with standing and walking. Pain subsides slightly with sitting or forward flexion. Patient does use a walker Per prior note: Referral Source: Marta Yeung CNP (Neurosurgery) CC: low back pain The patient is a 71 year old female who presents with a chief complaint of low back pain. Pain is located in the low back and radiates to the feet. The patient has had this pain for years. The initiating event was reported as progressively worsening slowly over years Since starting, the symptoms have worsened. The pain quality is sharp, stabbing, burning, throbbing. The pain is constant. Today, the pain intensity is rated as a 7 on a scale of 0-10. Patient reports associated symptoms of numbness, tingling down legs to feet; Alleviated with sitting, lying; Exacerbated with prolonged standing, walking; interfere with ADLs of physical activity, work, walking, social activity. Patient unable to stand for more than a couple minutes before needing to sit or flex forward. Sitting or flexing forward almost completely alleviates pain symptoms. Patient is unable to lay flat in bed and has to sleep in a recliner. Past History of Treatments: Patient has tried other professional care of PT, pain management, Dr. Oleary at [facility], in past. Has had 3 injections, including radiofrequency ablation, with minimal relief Trialed medications: diclofenac Procedures performed previously: lumbar MBB/RFA 11/21/21 - interlaminar lumbar epidural at L4-5 over 80% relief of radicular symptoms, and 50% relief of low back pain 02/18/22 - bilateral lumbar medial branch block L3-4 and L4-5 80% relief for the duration of the local 03/04/22 - bilateral lumbar medial branch block L4-5 and L5-S1 80% relief for the duration of the local 04/01/22 - Bilateral radiofrequency ablation L3-4 and L4-5 no significant relief 05/11/22 -MILD L3-L4, L4-L5 Imagin01/30/22 XR Lumbar Spine: Advancing multilevel osteoarthritis 10/10/21- lumbar MRI - L1-2 normal, L2-3 moderate CCS, mild left NFN, moderate disc bulge, L3-4 moderate CCS, mild bl NFN, mild disc bulge, mild facet OA, L4-5 moderate CCS, right foraminal narrowing, mild left foraminal narrowing, moderate facet OA, L5-S1 moderate left and mild right foraminal narrowing, mo CCS, mild bulge and facet OA Problem List: Patient Active Problem List Diagnosis Chest pain Dyspnea Edema Essential hypertension Fatigue Lightheadedness Spinal stenosis of lumbar region with neurogenic claudication Lower abdominal pain Spondylosis of lumbosacral region without myelopathy or radiculopathy A-fib (CMS/HCC) Clinical trial exam VT (ventricular tachycardia) Past Medical History: Past Medical History: Diagnosis Date Arrhy (more content not included)... [facility] 05-19-2022 Note Division of Nephrolo gy Vero Sadler is a 72 y.o. female who presents to nephrology clinic for evaluation of CKD. PMHx sig for HTN, COPD, HFpEF, chronic bilat LE edema, chronic back pain. she was diagnosed with HTN > 10 y ago . BP control has been uncontrolled. At home bp runs 140-160s.. she denies cp, sob, headache, blurry vision, orthostasis. It is hard to understand her kidney function chronicity as I only can review one lab result from 01/2022. Based on that blood work she has CKD stage 3/b. Pt reported that she was told that she had abnormal kidney function since 6-8 y ago, but she never saw kidney doctor. She was recently taken off spironolactone by her director executive communications. She is on po bumex daily. For her BP she is on hydralazine, amlodipine and coreg. She reported that few y ago amlodipine cause her volume overload and she was admitted to the hospital and underwent IV diuresis. she denies any h/o nephrolithiasis, gout, NSAID use, OTC herbal medications or supplements, past drug abuse, hepatitis B/C. He has not received imaging studies with contrast. No dysuria, increased frequency or hesitancy, hematuria, frothy urine. Interval events Since last I saw her, she has no changes, her BP at home been running between 130-140 systolic with occasional BP in the 150s-160s. She denied any CP, sob or headache. Her pcp is willing to start her on Bisphosphonate for her osteoporosis. Her K been elevated, she is trying to watch her diet and she is on Bumex. Past Medical History: Diagnosis Date Arrhythmia Arthritis Chronic kidney disease COPD (chronic obstructive pulmonary disease) (CMS/HCC) Hypertension Myocardial infarction (CMS/HCC) Family History Problem Relation Name Age of Onset Other (malig neoplastic disease) Mother Coronary artery disease Mother Other (cerebrovascular accident) Mother Other (renal disease) Mother Other (malig neoplastic disease) Father Hypertension Father Hyperlipidemia Father Other (malig neoplastic disease) Daughter Social History Social History Narrative Not on file Medications: Current Outpatient Medications Medication Sig Dispense Refill albuterol 90 mcg/actuation inhaler albuterol sulfate HFA 90 mcg/actuation aerosol inhaler INHALE 2 PUFFS BY MOUTH EVERY 4 HOURS NEEDED FOR SHORTNESS OF BREATH amLODIPine (Norvasc) 5 mg tablet Take 1 tablet (5 mg) by mouth in the morning. 90 tablet 3 aspirin 81 mg EC tablet Take 81 mg by mouth in the morning. bumetanide (Bumex) 1 mg tablet Take 1 tablet (1 mg) by mouth in the morning. 90 tablet 3 diclofenac (Voltaren) 75 mg EC tablet Take 75 mg by mouth in the morning and at bedtime. Do not crush, chew, or split. hydrALAZINE (Apresoline) 100 mg tablet Take 1 tablet 3 times a day by oral route for 90 days. levothyroxine (Synthroid, Levoxyl) 100 mcg tablet Take 1 tablet every day by oral route for 90 days. liothyronine (Cytomel) 25 mcg tablet Take 1 tablet by mouth in the morning. lovastatin (Mevacor) 20 mg tablet Take 1 tablet every day by oral route for 90 days. omega 5-nci-vef-fish oil 350 mg-235 mg- 90 mg-597 mg capsule,delayed release(DR/EC) Take 1 capsule by mouth in the morning. revefenacin (Yupelri) 175 mcg/3 mL nebulizer solution Take 175 mcg by nebulization in the morning. rutin/hesp/bioflav/C/[id number] (BIOFLEX ORAL) Take 1 tablet by mouth once daily as directed. amLODIPine (Norvasc) 10 mg tablet Take 1 tablet (10 mg) by mouth in the morning. (Patient not taking: Reported on 04/08/2022) 30 tablet 0 calcium carbonate-vitamin D3 1,000 mg-20 mcg (800 unit) tablet Take 1,000 Units by mouth in the morning. 30 tablet 2 carvedilol (Coreg) 12.5 mg tablet Take 1 tablet (12.5 mg) by mouth in the morning and at bedtime. 60 tablet 0 clotrimazole-betamethasone (Lotrisone) cream APPLY SMALL AMOUNT TO AFFECTED AREA TWICE DAILY *USE SPARINGLY* lisinopril 5 mg tablet Take 1 tablet (5 mg) by mouth in the morning. 30 tablet 1 sodium polystyrene sulfonate (Kayexalate) powder Take 15 grams by mouth daily. 454 g 11 spironolactone (Aldactone) 25 mg tablet Take 1 tablet (25 mg) by mouth in the morning. 90 tablet 3 No current facility-administered medications for this visit. Physical examination: Vitals: 05/19/22 0836 BP: 168/64 BP Location: Right arm Patient Position: Sitting BP Cuff Size: Large adult Pulse: 56 Resp: 16 SpO2: 95% Weight: (!) 144 kg (317 lb) Height: 1.651 m (5' 5 ) Gen: Alert, NAD HENT: Neck is supple, no LAD CV: RRNR, no murmurs, no rubs Pulm: Lungs CTA bl GI: Abdomen soft, NT, ND Extr: warm, no edema bl LEs Skin: No rash on exposed skin Neuro: Alert, conversive, nonfocal Laboratory: No results found for this or any previous visit (from the past 168 hour(s)). Lab Results Component Value Date CALCIUM 9.3 04/21/2022 PHOS 2.9 04/24/2022 Lab Results Component Value Date WBC 8.45 04/21/2022 No results found for: IRON, TIBC, TAYLOR (more content not included)... [facility] 05-11-2022 Note No concerns as per call back josefatito scott [facility] 05-11-2022 Note Patient: Vero boudreaux Procedure Summary Date: 05/11/22 Room / Location: [facility] OPERATING ROOM 05 / [facility] Operating Room Anesthesia Start: 727 Anesthesia Stop: 829 Procedure: L3-L4 and L4-L5 MILD Procedure Diagnosis: Spinal stenosis of lumbar region with neurogenic claudication Clinical trial exam (Spinal stenosis of lumbar region with neurogenic claudication [M48.062]) (Clinical trial exam [Z00.6]) Surgeons: Jose Angel Meehan MD Responsible Provider: Dario Randolph MD Anesthesia Type: MAC ASA Status: 3 Anesthesia Type: MAC Vitals Value Taken Time BP 158/60 05/11/22 0910 Temp 36 ???C (96.8 ???F) 05/11/22 0910 Pulse 58 05/11/22 0910 Resp 16 05/11/22 0910 SpO2 98 % 05/11/22 0910 Anesthesia Post Evaluation Patient location during evaluation: PACU Patient participation: complete - patient participated Level of consciousness: awake Pain score: 1 Pain management: adequate Airway patency: patent Cardiovascular status: acceptable Respiratory status: acceptable and room air Hydration status: acceptable No notable events documented. [facility] 05-11-2022 Note Patient: Vero boudreaux Procedure Information Anesthesia Start Date/Time: 05/11/22727 Procedure: L3-L4 and L4-L5 MILD Procedure - C-ARM, vers medical REP NOTIFIED 04/28 JK Location: [facility] OPERATING ROOM 05 / [facility] Operating Room Surgeons: Jose Angel Meehan MD Relevant Problems Cardio (+) A-fib (CMS/HCC) (+) Essential hypertension Clinical information reviewed: Tobacco Allergies Meds Problems Med Hx Surg Hx Fam Hx Soc Hx Physical Exam Airway Mallampati: II TM distance: >3 FB Neck ROM: full Cardiovascular Rhythm: irregular Rate: normal Dental Pulmonary (+) decreased breath sounds Abdominal Abdomen: soft Anesthesia Plan ASA 3 MAC intravenous induction Anesthetic plan and risks discussed with patient. Use of blood products discussed with patient who. Plan discussed with attending. Additional Equipment Requests [facility] 05-11-2022 Note Patient: Vero boudreaux Procedure Summary Date: 05/11/22 Room / Location: [facility] OPERATING ROOM 05 / [facility] Operating Room Anesthesia Start: 07 Anesthesia Stop: Procedure: L3-L4 and L4-L5 MILD Procedure Diagnosis: Spinal stenosis of lumbar region with neurogenic claudication Clinical trial exam (Spinal stenosis of lumbar region with neurogenic claudication [M48.062]) (Clinical trial exam [Z00.6]) Surgeons: Jose Angel Meehan MD Responsible Provider: Dario Randolph MD Anesthesia Type: MAC ASA Status: Not recorded Anesthesia Post Transport Note Transport to: PACU O2 Route: nasal cannula Oxygen Flow (L/min): 3 Patient Monitor: direct observation Transport: uneventful Patient condition is: stable [facility] 05-11-2022 Note L3-L4 and L4-L5 MILD Procedure Operative Note Date: 05/11/2022 Location: [facility] OR Name: Vero Sadler, : 1950, Diagnosis Pre-op Diagnosis * Spinal stenosis of lumbar region with neurogenic claudication [M48.062] * Clinical trial exam [Z00.6] Post-op Diagnosis * Spinal stenosis of lumbar region with neurogenic claudication [M48.062] * Clinical trial exam [Z00.6] Procedures L3-L4 and L4-L5 MILD Procedure 0275T - MO PERC LAMINO-/LAMINECTOMY INDIR IMAG GUIDE LUMBAR Surgeons * Jose Angel Meehan - Primary Procedure Summary Anesthesia: Monitor Anesthesia Care ASA: ASA status not filed in the log. Estimated Blood Loss: None Total IV Fluids: see anesthesia record mL Drains: * None in log * Staff: Band Lining Bander: Nancy Sanders RN Scrub Person: Abby Decker CST Indications: Vero Sadler is an 72 y.o. female who is having surgery for Spinal stenosis of lumbar region with neurogenic claudication [M48.062] Clinical trial exam [Z00.6]. Procedure Details: The patient was seen in the preoperative area. The risks, benefits, complications, treatment options, non-operative alternatives, expected recovery and outcomes were discussed with the patient. The possibilities of reaction to medication, pulmonary aspiration, injury to surrounding structures, bleeding, recurrent infection, the need for additional procedures, failure to diagnose a condition, and creating a complication requiring transfusion or operation were discussed with the patient. The patient concurred with the proposed plan, giving informed consent. The site of surgery was properly noted/marked if necessary per policy. The patient has been actively warmed in preoperative area. Preoperative antibiotics have been ordered and given within 1 hours of incision. Venous thrombosis prophylaxis have been ordered including bilateral sequential compression devices ASSISTANTS: None SEDATION: Monitored Anesthesia Care PREOPERATIVE ANTIBIOTICS: 3 grams of Ancef was given 30 minutes prior to incision PREOPERATIVE DIAGNOSES: Lumbar spinal stenosis with neurogenic claudication OPERATION: 1.Fluoroscopically guided, minimally invasive lumbar decompression (laminotomy) at L3-4 and L4-5 2. Interlaminar Epidurograms L4-5 POSTOPERATIVE DIAGNOSES: Lumbar spinal stenosis with neurogenic claudication ESTIMATED BLOOD LOSS: Minimal. COMPLICATIONS: None. SPECIMENS: None. Specimens: None Complications: None OPERATION: LEVELS: bilateral L3-4 and L4-5 OPERATIVE PROCEDURE: The patient was brought to the operating room and was placed in the prone position. The patient was prepped and draped in the usual sterile manner. Time-out was performed. Local anesthetic was applied. Epidurograms were performed at the L3-4, L4-5 level under fluoroscopic guidance by advancing 20 G TOUHY needles into the lumbar epidural space at the L4-5 level. Epidurogram was performed which revealed essentially no flow past the L4-5 level due to central canal stenosis. 2ml of 0.25% bupivacaine with 15 mg preservative free dexamethasone was injected into the epidural space after negative aspiration. These was administration of local anesthetic and an incision with 11 blade was made. A MILD Trocar was inserted under fluoroscopic guidance to contact the left side lamina of L5 and then to slide into the L4/5 interlaminar space. A mild Bone Sculptor Ronguer was then inserted to remove adequate amounts of lamina from the inferior surface of the left L5 lamina and the superior aspect of the left L4 lamina. This was to allow passage of the mild Portal to an adequate depth to advance the mild Tissue Sculptor in order to remove ligamentum flavum and to decompress the ligamentum flavum in such a way that epidural contrast could flow from more freely in a craniocaudal direction. The mild Trocar and Portal were then inserted into the L3/4 on the left interlaminar space. With the aid of the mild Bone Sculptor Ronguer, lamina was removed from the inferior aspect of the left L4 lamina and superior aspect of the left L3 lamina in order to advance the mild Portal in such a way as to insert a mild Tissue Sculptor in order to remove adequate amounts of ligamentum flavum. These were the only two levels done. The same identical steps where than taken using the same entry site to decompress the right side at L3-4, L4-5 The devices were removed and hemostasis was achieved by direct pressure. Closures were made by dermabond, Steri-Strips and an appropriate occlusive dressing. The patient tolerated the procedure well and denied any pain, pressure, or paresthesia during or after the procedure. The patient was escorted to the recovery area, monitored until discharge criteria met. Discharged in good condition. Appropriate written discharge instructions given to the patient. Complications: None; patient tolerated the procedure well. Disposi (more content not included)... [facility] 04-24-2022 Note [place] Cardiology Consul t Note Reason for visit: NSVT HPI: Vero Sadler is a 72 y.o. year old with past medical history of resistant hypertension, sinus bradycardia. She was seen by DR Restrepo after she had been observed to have low HR when she was seen by pain team for nerve ablation for back pain. This led to event monitor which revealed NS-VT as well as NS-AT. She feesl the AT episodes. TESTING: Event monitor that was placed from 04/27/2019 to 04/15/20112022 revealed the presence of nonsustained ventricular tachycardia as well as episodes of nonsustained atrial tachycardia's. Episode of nonsustained atrial tachycardia was noted on 02/24/2022 at 9:23 PM as well as another monitor on 03/01/2020 to 03/06/2022 as well as 03/07/2020 to 03/10/2022. Reportedly there were episodes of wide-complex tachycardia that was noted on 03/12/2022 at 9:51 PM which appeared more like an idioventricular rhythm lasted for approximately 8seconds. ECHO 07/19/19: preserved LV function, grade II DD, biatrial enlargement, mild TR, moderately elevated right sided pressures (RVSP 45-60) Cardiac cath 07/2016 FINAL IMPRESSION: 1. Normal epicardial arteries. 2. 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 Exercise stress test 01/26/2022: 1. Moderate sized, moderate severity, fixed defect in anterior wall LAD distribution-there are no wall motion abnormalities noted, ejection fraction is normal. This cannot be anything but breast artifact 2. No reversible ischemia 3. Dilated left ventricle 4. Normal global left ventricular systolic function with an EF of 69% 5. No transient ischemic dilation 6. Normal exercise stress test PMH: Past Medical History: Diagnosis Date COPD (chronic obstructive pulmonary disease) (CMS/HCC) Hypertension PSH: Past Surgical History: Procedure Laterality Date CARDIAC CATHETERIZATION EYE SURGERY FOOT SURGERY HYSTERECTOMY SH: Social Determinants of Health Tobacco Use: Medium Risk Smoking Tobacco Use: Former Smokeless Tobacco Use: Never Passive Exposure: Never Alcohol Use: Not on file Financial Resource Strain: Not on file Food Insecurity: Not on file Transportation Needs: Not on file Physical Activity: Not on file Stress: Not on file Social Connections: Not on file Intimate Partner Violence: Not on file Depression: Not at risk PHQ-2 Score: 0 Housing Stability: Not on file Allergies: Allergies Allergen Reactions Penicillins Other Yeast infection Weight: 145kg Visit Vitals BP (!) 175/44 Pulse 52 Temp 36.9 ???C (98.4 ???F) (Temporal) LMP (LMP Unknown) OB Status Hysterectomy Smoking Status Former Meds: Current Outpatient Medications on File Prior to Visit Medication Sig Dispense Refill albuterol 90 mcg/actuation inhaler albuterol sulfate HFA 90 mcg/actuation aerosol inhaler INHALE 2 PUFFS BY MOUTH EVERY 4 HOURS NEEDED FOR SHORTNESS OF BREATH amLODIPine (Norvasc) 5 mg tablet Take 1 tablet (5 mg) by mouth in the morning. 90 tablet 3 aspirin 81 mg EC tablet Take 81 mg by mouth in the morning. blood pressure test kit-large kit Extra large blood pressure monitor kit 1 kit 0 blood pressure test kit-large kit Use as directed 1 kit 0 bumetanide (Bumex) 1 mg tablet Take 1 tablet (1 mg) by mouth in the morning. 90 tablet 3 clotrimazole-betamethasone (Lotrisone) cream APPLY SMALL AMOUNT TO AFFECTED AREA TWICE DAILY *USE SPARINGLY* hydrALAZINE (Apresoline) 100 mg tablet Take 1 tablet 3 times a day by oral route for 90 days. levothyroxine (Synthroid, Levoxyl) 100 mcg tablet Take 1 tablet every day by oral route for 90 days. liothyronine (Cytomel) 25 mcg tablet Take 1 tablet by mouth in the morning. lovastatin (Mevacor) 20 mg tablet Take 1 tablet every day by oral route for 90 days. omega 9-suq-oln-fish oil 350 mg-235 mg- 90 mg-597 mg capsule,delayed release(DR/EC) Take 1 capsule by mouth in the morning. pantoprazole (ProtoNix) 40 mg EC tablet pantoprazole 40 mg tablet,delayed release TAKE 1 TABLET BY MOUTH EVERY DAY spironolactone (Aldactone) 25 mg tablet Take 1 tablet (25 mg) by mouth in the morning. 90 tablet 3 amLODIPine (Norvasc) 10 mg tablet Take 1 tablet (10 mg) by mouth in the morning. (Patient not taking: Reported on 04/08/2022) 30 tablet 0 carvedilol (Coreg) 12.5 mg tablet Take 1 tablet (12.5 mg) by mouth in the morning and at bedtime. 60 tablet 0 [DISCONTINUED] alendronate (Fosamax) 70 mg tablet [DISCONTINUED] diclofenac (Voltaren) 75 mg EC tablet Take 1 tablet by mouth in the morning and at bedtime. No current facility-administered medications on file prior to visit. ROS: CConstitutional: Positive for diaphoresis and malaise/fatigue. Cardiovascular: Positive for chest pain, dyspnea on exertion, leg swelling and palpitations. Respiratory: Positive for shortness of breath. Hematologic/Lymphatic: Bruises/bleeds easily. Musculoskeletal: Positive for back pain, muscle weakness an (more content not included)... [facility] 04-24-2022 Note ` [facility] 04-21-2022 Note [facility] Interventional Pain Management SUBJECTIVE: Subjective 04/21/22 CC: Chief Complaint Patient presents with Follow-up S/P RFA Pain Assessment Pain Assessment: 0-10 Pain Score: 7 Pain Type: Chronic pain Pain Location: Back Pain Orientation: Lower Pain Descriptors: Aching, Throbbing, Stabbing, Sharp Pain Frequency: Constant/continuous Pain Onset: Ongoing Clinical Progression: Gradually worsening Aggravating Factors: Standing, Walking Pain Interventions: Rest, Other (Comment) (Sitting and lying down) 72 year old female here to follow up 04/01/22 - Bilateral radiofrequency ablation L3-4 and L4-5. Patient states that she did not have significant pain relief since procedure. She is still having significant back pain that she states has worsened. Her leg pain has improved and has not worsened since procedure. She states that the back pain is spread out through the entire lumbar region. She describes the pain as sharp, shooting, aching, throbbing. She states that the pain is worse with standing and walking, and that she is still having to use her walker more than she would like. She states that she will have significant pain after 5 to 10 minutes of standing. The pain is better with rest, sitting, laying down. Reports no pain while sitting, flexing forward or being in a recumbent position. Denies any new onset numbness, weakness, incontinence. Per prior note: This is a 72 year old female returning to follow up after procedure LESI L4-5. The patient reports pain has been improved by 50% in the low back and over 80% in the legs. Primary pain complaint localized low back pain. This is persistent at rest but does worsen with standing and walking. Pain subsides slightly with sitting or forward flexion. Patient does use a walker Per prior note: Referral Source: Marta Yeung CNP (Neurosurgery) CC: low back pain The patient is a 71 year old female who presents with a chief complaint of low back pain. Pain is located in the low back and radiates to the feet. The patient has had this pain for years. The initiating event was reported as progressively worsening slowly over years Since starting, the symptoms have worsened. The pain quality is sharp, stabbing, burning, throbbing. The pain is constant. Today, the pain intensity is rated as a 7 on a scale of 0-10. Patient reports associated symptoms of numbness, tingling down legs to feet; Alleviated with sitting, lying; Exacerbated with prolonged standing, walking; interfere with ADLs of physical activity, work, walking, social activity. Patient unable to stand for more than a couple minutes before needing to sit or flex forward. Sitting or flexing forward almost completely alleviates pain symptoms. Patient is unable to lay flat in bed and has to sleep in a recliner. Past History of Treatments: Patient has tried other professional care of PT, pain management, Dr. Oleary at [facility], in past. Has had 3 injections, including radiofrequency ablation, with minimal relief Trialed medications: diclofenac Procedures performed previously: lumbar MBB/RFA 11/21/21 - interlaminar lumbar epidural at L4-5 over 80% relief of radicular symptoms, and 50% relief of low back pain 02/18/22 - bilateral lumbar medial branch block L3-4 and L4-5 80% relief for the duration of the local 03/04/22 - bilateral lumbar medial branch block L4-5 and L5-S1 80% relief for the duration of the local 04/01/22 - Bilateral radiofrequency ablation L3-4 and L4-5 no significant relief Imagin01/30/22 XR Lumbar Spine: Advancing multilevel osteoarthritis 10/10/21- lumbar MRI - L1-2 normal, L2-3 moderate CCS, mild left NFN, moderate disc bulge, L3-4 moderate CCS, mild bl NFN, mild disc bulge, mild facet OA, L4-5 moderate CCS, right foraminal narrowing, mild left foraminal narrowing, moderate facet OA, L5-S1 moderate left and mild right foraminal narrowing, mo CCS, mild bulge and facet OA Problem List: Patient Active Problem List Diagnosis Chest pain Dyspnea Edema Essential hypertension Fatigue Lightheadedness Spinal stenosis of lumbar region with neurogenic claudication Lower abdominal pain Spondylosis of lumbosacral region without myelopathy or radiculopathy A-fib ([facility]) Past Medical History: Past Medical History: Diagnosis Date COPD (chronic obstructive pulmonary disease) ([facility]) Hypertension Past Surgical History: Past Surgical History: Procedure Laterality Date CARDIAC CATHETERIZATION EYE SURGERY FOOT SURGERY HYSTERECTOMY Medications: Current Outpatient Medications: albuterol 90 mcg/actuation inhaler, albuterol sulfate HFA 90 mcg/actuation aerosol inhaler INHALE 2 PUFFS BY MOUTH EVERY 4 HOURS NEEDED FOR SHORTNESS OF BREATH, Disp: , Rfl: amLODIPine (Norvasc) 5 mg tablet, Take 1 tablet (5 mg) by mouth in the morning., Disp: 90 tablet, Rfl: 3 aspirin 81 mg EC tablet, Take 81 mg b (more content not included)... [facility] 04-21-2022 Note Division of Nephrolo gy Vero Sadler is a 72 y.o. female who presents to nephrology clinic for evaluation of CKD. PMHx sig for HTN, COPD, HFpEF, chronic bilat LE edema, chronic back pain. she was diagnosed with HTN > 10 y ago . BP control has been uncontrolled. At home bp runs 140-160s.. she denies cp, sob, headache, blurry vision, orthostasis. It is hard to understand her kidney function chronicity as I only can review one lab result from 01/2022. Based on that blood work she has CKD stage 3/b. Pt reported that she was told that she had abnormal kidney function since 6-8 y ago, but she never saw kidney doctor. She was recently taken off spironolactone by her director executive communications. She is on po bumex daily. For her BP she is on hydralazine, amlodipine and coreg. She reported that few y ago amlodipine cause her volume overload and she was admitted to the hospital and underwent IV diuresis. she denies any h/o nephrolithiasis, gout, NSAID use, OTC herbal medications or supplements, past drug abuse, hepatitis B/C. He has not received imaging studies with contrast. No dysuria, increased frequency or hesitancy, hematuria, frothy urine. Review of system No fevers,chills, night sweats, weight loss, rashes, joint pain, dry eyes/mouth, frequent sinusitis. No family history of renal disease or autoimmune disease. Past Medical History: Diagnosis Date COPD (chronic obstructive pulmonary disease) (CMS/HCC) Hypertension Family History Problem Relation Name Age of Onset Other (malig neoplastic disease) Mother Coronary artery disease Mother Other (cerebrovascular accident) Mother Other (renal disease) Mother Other (malig neoplastic disease) Father Hypertension Father Hyperlipidemia Father Other (malig neoplastic disease) Daughter Social History Social History Narrative Not on file Medications: Current Outpatient Medications Medication Sig Dispense Refill albuterol 90 mcg/actuation inhaler albuterol sulfate HFA 90 mcg/actuation aerosol inhaler INHALE 2 PUFFS BY MOUTH EVERY 4 HOURS NEEDED FOR SHORTNESS OF BREATH amLODIPine (Norvasc) 5 mg tablet Take 1 tablet (5 mg) by mouth in the morning. 90 tablet 3 aspirin 81 mg EC tablet Take 81 mg by mouth in the morning. bumetanide (Bumex) 1 mg tablet Take 1 tablet (1 mg) by mouth in the morning. 90 tablet 3 clotrimazole-betamethasone (Lotrisone) cream APPLY SMALL AMOUNT TO AFFECTED AREA TWICE DAILY *USE SPARINGLY* hydrALAZINE (Apresoline) 100 mg tablet Take 1 tablet 3 times a day by oral route for 90 days. levothyroxine (Synthroid, Levoxyl) 100 mcg tablet Take 1 tablet every day by oral route for 90 days. liothyronine (Cytomel) 25 mcg tablet Take 1 tablet by mouth in the morning. lovastatin (Mevacor) 20 mg tablet Take 1 tablet every day by oral route for 90 days. pantoprazole (ProtoNix) 40 mg EC tablet pantoprazole 40 mg tablet,delayed release TAKE 1 TABLET BY MOUTH EVERY DAY amLODIPine (Norvasc) 10 mg tablet Take 1 tablet (10 mg) by mouth in the morning. (Patient not taking: Reported on 04/08/2022) 30 tablet 0 blood pressure test kit-large kit Extra large blood pressure monitor kit 1 kit 0 blood pressure test kit-large kit Use as directed 1 kit 0 carvedilol (Coreg) 12.5 mg tablet Take 1 tablet (12.5 mg) by mouth in the morning and at bedtime. 60 tablet 0 omega 0-oht-bwm-fish oil 350 mg-235 mg- 90 mg-597 mg capsule,delayed release(DR/EC) Take 1 capsule by mouth in the morning. spironolactone (Aldactone) 25 mg tablet Take 1 tablet (25 mg) by mouth in the morning. 90 tablet 3 No current facility-administered medications for this visit. Physical examination: Vitals: 04/21/22 0918 BP: 145/73 BP Location: Left arm Patient Position: Sitting BP Cuff Size: Large adult Pulse: 68 Resp: 14 Weight: (!) 146 kg (321 lb) Height: 1.651 m (5' 5 ) Gen: Alert, NAD HENT: Neck is supple, no LAD CV: RRNR, no murmurs, no rubs Pulm: Lungs CTA bl GI: Abdomen soft, NT, ND Extr: warm, + 2 non pitting edema bl LEs Skin: No rash on exposed skin Neuro: Alert, conversive, nonfocal Laboratory: No results found for this or any previous visit (from the past 168 hour(s)). Lab Results Component Value Date CALCIUM 9.0 02/24/2022 No results found for: WBC No results found for: IRON, TIBC, FERRITIN No results found for: LDL. Creatinine Trend: Lab Results Component Value Date CREATININE 1.69 (H) 02/24/2022 Renal Imaging Assessment and Plan: Ms. Vero Sadler is a 72 y.o. female with ckd stage 3/b likely due to HTN nephropathy. No prior urine study in our records. CKD stage 3/b - Her serum creatinine level of 1.6, will repeat lab today, and I ask her to bring her blood work from the past to understand her kidney function further. - she is not on RAAS blockade for unclear reason, will get urine test and assess for proteinuria. May consider if she has evidence of proteinuria for kidney protection. - Rev (more content not included)... [facility] Summary Purpose Family History No Family History Records FoundNo Family History Records FoundNo Family History Records FoundNo Family History Records FoundNo Family History Records Found Advance Directives No Advanced Directives Records FoundNo Advanced Directives Records FoundNo Advanced Directives Records FoundNo Advanced Directives Records FoundNo Advanced Directives Records Found Additional Source Comments INFORMATION SOURCE (unrecogn ized section and content) DATE CREATED AUTHOR 09/08/2017 [facility] DATE CREATED AUTHOR AUTHOR'S ORGANIZ ATION 09/27/2020 [facility] DATE CREATED AUTHOR AUTHOR'S ORGANIZ ATION 07/24/2022 [facility] DATE CREATED AUTHOR AUTHOR'S ORGANIZ ATION 11/21/2022 [facility] DATE CREATED AUTHOR AUTHOR'S ORGANIZ ATION 04/19/2023 [facility] FOR RECORDS PERTAINING TO PATIENTS WHO ARE OR HAVE BEEN ENROLLED IN A CHEMICAL DEPENDENCY/SUBSTANCEABUSE PROGRAM, SOME INFORMATION MAY BE OMITTED. This clinical summary was aggregated from multiple sources. Caution should be exercised in using it in the provision of clinical care. This summary normalizes information from multiple sources, and as a consequence, information in this document may materially change the coding, format and clinical context of patient data. In addition, data may be omitted in some cases. CLINICAL DECISIONS SHOULD BE BASED ON THE PRIMARY CLINICAL RECORDS. [employer] provides no warranty or guarantee of the accuracy or completeness of information in this document.
[2023-04-22 08:49] LABS: Basophils Percent Auto 0.1 % (0.2-2.0); Hematocrit 41.1 % (36.0-48.0); Hemoglobin 12.8 g/dL (12.0-16.0); Immature Granulocytes Abs Auto 0.04 10^3/uL (0.00-0.03); Immature Granulocytes Pct Auto 0.6 % (0.0-0.5); Lymphocytes Absolute Auto 1.3 10^3/uL (1.2-3.8); Mean Corpuscular HGB Conc 31.1 g/dL (29.9-35.2); Mean Platelet Volume 9.7 fL (9.5-13.5); Monocytes Absolute Auto 0.5 10^3/uL (0.3-0.8); Monocytes Percent Auto 7.2 % (1.7-12.0); Neutrophils Absolute Auto 5.3 10^3/uL (1.4-6.5); Neutrophils Percent Auto 74.1 % (43.0-75.0); Platelet Count 247 10^3/uL (150-450); Red Blood Count 4.42 10^6/uL (4.20-5.40); Red Cell Distribution Width 13.3 % (11.0-15.0); White Blood Count 7.2 10^3/uL (4.0-11.0)
[2023-04-22 09:20] LABS: Estimated Average Glucose 108 mg/dL; Glycohemoglobin A1C 5.4 % (4.5-6.2)
[2023-04-22 09:25] LABS: Alanine Aminotransferase 15 U/L (14-59); Albumin Globulin Ratio 0.8; Albumin Level 3.1 g/dL (3.4-5.0); Alkaline Phosphatase 76 U/L (46-116); Anion Gap 15.4; Aspartate Amino Transferase 13 U/L (15-37); BUN Creatinine Ratio 21.4; Bilirubin Total 0.4 mg/dL (0.2-1.0); Calcium 9.2 mg/dL (8.5-10.1); Carbon Dioxide 23.2 mmol/L (21.0-32.0); Chloride 107 mmol/L (98-107); Chol HDL Ratio 4.4; Cholesterol 193 mg/dL (<=200); Estimated GFR (African America 26 (>=60); Estimated GFR (Non-African Ame 21 (>=60); Glucose 126 mg/dL (74-106); HDL Cholesterol 44 mg/dL (40-60); LDL Cholesterol Calculated 129.8 mg/dL; Potassium 4.6 mmol/L (3.5-5.1); Sodium 141 mmol/L (136-145); Thyroid Stimulating Hormone 0.007 uIU/mL (0.358-3.740); Total Protein 7.1 g/dL (6.4-8.2); Triglycerides 96 mg/dL (<=150); VLDL CHOLESTEROL 19.2 mg/dL
[2023-04-23 10:11] LABS: Insulin 35.2 uIU/mL (2.6-24.9)
== END 2023-04-22 08:29 | disposition home or self-care (01) ==
PROVIDERS: PCP Family Medicine; Visit Provider Family Medicine
DX: I49.5 Sick sinus syndrome (principal); E66.01 Morbid (severe) obesity due to excess calories; R42 Dizziness and giddiness; I25.118 Atherosclerotic heart disease of native coronary artery with other forms of angina pectoris; R53.83 Other fatigue; E11.65 Type 2 diabetes mellitus with hyperglycemia; I12.9 Hypertensive chronic kidney disease with stage 1 through stage 4 chronic kidney disease, or unspecified chronic kidney disease; N18.30 Chronic kidney disease, stage 3 unspecified; E03.9 Hypothyroidism, unspecified
CPT/HCPCS: 36415; 80053; 80061; 82306; 83036; 83525; 83540; 84436; 84443; 84481; 85025

== ENCOUNTER 2023-04-28 09:36 | Outpatient (OUT) | payer MEDICARE, SELFPAY ==
--- NOTE | 2023-04-28 09:40 | US_ITS ---
The [address] [address] Patient Name: JUSTIN COLLINS MRN: [id number] date: 1950 Sex: F Assigned Patient Location: US Current Patient Location: US Accession/Order Number: [id number] Exam Date: 04/28/2023 09:45 Report Date: 04/28/2023 11:39 At the request of: DEBBIE BHATIA Procedure: US renal bladder US renal bladder, 04/28/2023 9:45 AM EST INDICATION: chronic kidney disease N18.30 COMPARISON: Prior CT of abdomen pelvis dated 11/22/2018 FINDINGS: The kidneys measure 9.9 x 5.6 x 6 cm on the right and 11.2 x 5.1 x 5.1 cm on the left side. No hydronephrosis is noted. Normal vascularity of kidneys. Increased bilateral cortical echogenicity suggesting of medical renal disease. Tiny hyperechogenic lesions in the midpole of the left kidney measuring 4 mm in the inferior pole measuring 9 mm most likely consistent with nonobstructive nephrolithiasis. The urinary bladder is not distended and is evaluation is limited. However the visualized portion of the urinary bladder is unremarkable. Nonspecific ureteral jet is noted. The post void residual could not be measured as the patient could not cooperate. US/US renal bladder IMPRESSION: Findings suggestive of medical renal disease. No hydronephrosis is noted. Possible left-sided nonobstructive nephrolithiasis. Electronically authenticated by: FELIPE FLOWER Date: 04/28/2023 11:39
--- NOTE | 2023-04-28 09:41 | US_ITS ---
The [address] [address] Patient Name: JUSTIN COLLINS MRN: [id number] date: 1950 Sex: F Assigned Patient Location: US Current Patient Location: US Accession/Order Number: [id number] Exam Date: 04/28/2023 10:00 Report Date: 04/28/2023 12:07 At the request of: DEBBIE BHATIA Procedure: US right upper quadrant EXAM: US right upper quadrant HISTORY: . Diarrhea R19.7 . COMPARISON: None. TECHNIQUE: Grayscale and color imaging was performed FINDINGS: Pancreas is grossly unremarkable. The liver is normal in size. No masses are noted. Color-flow is noted in the portal and hepatic veins. There is slight increased echogenicity of liver. Right kidney measures 10.6 x 5.3 x 4.9 cm. Color-flow is noted. No solid renal cortical masses or hydronephrosis is noted. The gallbladder appears normal with no stones or sludge. Common bile duct measures 3 mm. No fluid is noted in the right upper quadrant. US/US right upper quadrant IMPRESSION: 1. Increased echogenicity of liver consistent with fatty infiltration of liver. 2. The remainder the right upper quadrant was unremarkable. Electronically authenticated by: RAJI LYNNE Date: 04/28/2023 12:07
--- OUTSIDE RECORDS SUMMARY | 2023-04-28 09:47 | XMS_ITS | CCD ---
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 Phone PHYSICIAN, DEFAULT Unavailable Unavailable PHYSICIAN, DEFAULT Unavailable Unavailable DEBBIE BHATIA Unavailable Unavailable SRIRAM ., DR ELWIS Consulting Unavailable HOY ., DR LEWIS Attending Unavailable HOY ., DR LEWIS Primary Care Unavailable HOY ., DR LEWIS Admitting Unavailable EL PORTAL, DR RAJI Odonnell Consulting Unavailable HOY ., DR LEWIS Consulting Unavailable HOY ., DR LEWIS Attending Unavailable HOY ., DR LEWIS Primary Care Unavailable HOY ., DR LEWIS Admitting Unavailable HOY ., DR LEWIS Primary Care Unavailable HOY ., DR LEWIS Consulting Unavailable JAMES HURTADOSON Admitting Unavailable CAPO HURTADO Attending Unavailable SRIRAM [...] Unavailable HOY ., DR LEWIS Admitting Unavailable WEST, DR RAJI Odonnell Consulting Unavailable Desmond ANDERS Attending Unavailable KARLA, JENNIFER Attending Unavailable KARLA, JENNIFER Admitting Unavailable HOYDEBBIE Referring Unavailable MALENFANT, NATALIA Willis Attending Unavaila ble KARLA, JENNIFER Referring Unavailable JOSE ANGEL MEEHAN Attending Unavailable JOSE ANGEL MEEHAN Admitting Unavailable JOSE ANGEL MEEHAN Referring Unavailable IRVIN KWOK Attending Unavailable ELAGUSHAWLula, TATO Attending Unavailable IRVIN KWOK Referring Unavailable TIAN FORD Attending Unavailable JOSE ANGEL MEEHAN Attending Unavailable JOSE ANGEL MEEHAN Attending Unavailable TIAN FORD Attending Unavailable IRVIN KWOK Referring Unavailable MALENFANT, NATALIA Willis Referring Unavaila ble PURNIMA, PALMIRAR Referring Unavailable SHEFALIJOSE ANGEL MORGAN Referring Unavailable AKRAANNE MARIE, PALMIRAR Referring Unavailable MALENFANT, NATALIA Willis Referring Unavaila ble DARIO ALARCON Attending Unavailable JOSE ANGEL MEEHAN Attending Unavailable COLLETTE HOFFMAN Attending Unavailable SUNDARIRVIN Moore Attending Unavailable IRVIN KWOK Attending Unavailable KARLA, JENNIFER Referring Unavailable JOSE ANGEL MEEHAN Attending Unavailable CINTIA JACOBO Attending Unavailable JOSE ANGEL MEEHAN Attending Unavailable MALENFANTNATALIA Attending Unavaila ble JOSE ANGEL MEEHAN Attending Unavailable TIAN FORD Attending Unavailable JOSE ANGEL MEEHAN Referring Unavailable JOSE ANGEL MEEHAN Referring Unavailable JOSE ANGEL MEEHAN Referring Unavailable JOSE ANGEL MEEHAN Referring Unavailable JOSE ANGEL MEEHAN Attending Unavailable JENNIFER BULLOCK Referring Unavailable JOSE ANGEL MEEHAN Attending Unavailable IRVIN KWOK Attending Unavailable IRVIN KWOK Admitting Unavailable JOSE ANGEL MEEHAN Attending Unavailable JOSE ANGEL MEEHAN Admitting Unavailable Allergies Allergy Classification Reported Allergen(s) Allergy Type Date of Onset Reaction(s) Facility (4 sources) Penicillins; Translations: [PENICILLINS] Drug allergy (disorder) 09-28-2014 [facility] Repository Problems Active Problems Problem [...] disease (2 sources) Atherosclerotic heart disease of [place] coronary artery with other forms of angina pectoris; Translations: [Atherosclerotic heart disease of [place] coronary artery with other forms of angina [...] or radiculopathy, lumbosacral region] Onset: 01-30-2022 Chronic Spondylosis; intervertebral disc disorders; other back problems (13 sources) Spinal stenosis, lumbar region with neurogenic claudication; Translations: [Radiculopathy, lumbar region] Onset: 10-09-2021 Episodic Thyroid disorders (1 source) Hypothyroidism, unspecified; Translations: [...] object(s), not elsewhere classified, initial encounter; Translations: [[facility] SHRP OB NOT ELSW CLASS INI] [...] 08-12-2021 Episodic Other aftercare (1 source) 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..] HISTORY OF NICOTINE DEPEND] Onset: 08-14-2021 Episodic Unclassified (1 source) CONTACT W/AND (SUSP) [...] Name Value Interpretation Reference Range Facility 36on 04-22-2023 36 Patient contacted an d immediately began with oh so now you decide to call me a week later . States she called last week and left a message (no documentation in chart of previous call). States she has seen her PCP who ordered testing and she will not be calling us again until it is time for her colonoscopy. Explained that we only had the 04/20/2023 call and that it sometimes takes 48 -72 hours for the doctors/BALLISTICIAN's to return messages. Apologized that we were not able to meet her needs and voiced that we understand her feelings and decision not to utilized services at this time [facility] 36on 04-19-2023 36 Vero has called, stating she is not feeling well, in Re: recurrent diarrhea /not feeling well and she mention a breathing test they may not work, she is looking for answers to why she is not feeling well in a lot of pain, please advise with patient [phone] ???This phone message was created by the ambulatory float staff. If you need sales support technician follow up regarding this patient, please make your appropriate clinic staff member aware, Thank you??? Normal [facility] Telephoneon 04-19-2023 Telephone [id number] Brian Sadler se 1950 F Date Provider Department Center 04/19/2023 [id number] AGUIRRE [facility] Family History Problem Relation Age of Onset Other Mother Coronary artery disease Mother Other Mother Other Mother Other Father Hypertension Father Hyperlipidemia Father Other Daughter Family Status - Relation Status Age at Mother Father Daughter Normal [facility] Prep for Procedureon 024 Prep for Procedure [id number] Brian Sadler se 1950 F Date Provider Department Center 04/12/2023 LEENA BURK MP PROC Medical Pavi Family History Problem Relation Age of Onset Other Mother Coronary artery disease Mother Other Mother Other Mother Other Father Hypertension Father Hyperlipidemia Father Other Daughter Family Status - Relation Status Age at Mother Father Daughter Normal [facility] Prep for Procedureon 024 Prep for Procedure [id number] Brian Sadler se M 1950 F Date Provider Department Center 03/31/2023 JOSE ANGEL LEE MP PROC Medical Pavi Family History Problem Relation Age of Onset Other Mother Coronary artery disease Mother Other Mother Other Mother Other Father Hypertension Father Hyperlipidemia Father Other Daughter Family Status - Relation Status Age at Mother Father Daughter Normal [facility] Follow-Upon 03-26-2023 Follow-Up [id number] Brian Sadler se M 1950 F Date Provider Department Center 03/26/2023 JOSE ANGEL LEE MP PAIN Medical Pavi Family History Problem Relation Age of Onset Other Mother Coronary artery disease Mother Other Mother Other Mother Other Father Hypertension Father Hyperlipidemia Father Other Daughter Family Status - Relation Status Age at Mother Father Daughter Level of Service:62936 MA OFFICE/OUTPATIENT ESTABLISHED LOW MDM 20 MIN () Reason for Visit and Comments: Follow-up [276539] - Physical Therapy only did a couple days of PT because of COPD and chest hurting [facility] Office Visiton 03-23-2023 Follow-up visit [id number] Brian Sadler se 1950 Date Provider Department Center 03/23/2023 241-IRVIN KWOK LEE[facility] Family History Problem Relation Age of Onset Other Mother Coronary artery disease Mother Other Mother Other Mother Other Father Hypertension Father Hyperlipidemia Father Other Daughter Family Status - Relation Status Age at Mother Father Daughter Level of Service:05137 MA OFFICE/OUTPATIENT ESTABLISHED LOW MDM 20 MIN [facility] Letter (Out)on 02-23-2023 Letter (Out) [id number] Brian Sadler se 1950 Provider Department Center 02/23/2023 Severiano-NANCY PRADO [facility] Family History Problem Relation Age of Onset Other Mother Coronary artery disease Mother Other Mother Other Mother Other Father Hypertension Father Hyperlipidemia Father Other Daughter Family Status - Relation Status Age at Mother Father Daughter [facility] 36on 02-22-2023 36 Spoke with patient w ho voiced understanding not to complete the MRI at this time due to kidneys. Advised that the patient contact the Endoscopy department to review questions regarding HBT. [facility] 36 ----- Message from Natalia Kuhn NP sent at 2023 2:35 PM EST ----- Gabe Xavier, Do you mind calling her and giving her an update that contrast is not recommended given her kidneys at this point. MRI imaging is not usually beneficial at all without contrast. We can do the HBT first and see her response to fiber. If the test is normal and her symptoms continue we can do the MRE. Thank you. [facility] Orders Onlyon 2023 Orders Only [id number] Biran Sadler se 1950 Provider Department Center 2023 [id number]-FOHYUHMASPRESTON KUHN*NISHA [facility] Family History Problem Relation Age of Onset Other Mother Coronary artery disease Mother Other Mother Other Mother Other Father Hypertension Father Hyperlipidemia Father Other Daughter Family Status - Relation Status Age at Mother Father Daughter [facility] 36on 02-17-2023 36 Instruction sheet fo r HBT and US order mailed to the patient. I scanned the stool study results into patients chart and sent them into Tierra's basket. [facility] 36 ----- Message from Natalia Kuhn NP sent at 02/16/2023 7:59 PM EST ----- Hi Linn, Do you mind helping mailing her a Hydrogen Breath Test instruction packet and Gall bladder US orders to her house. Do you mind also calling [facility] and requesting all her stool study results from dec or jan. They never faxed us any results. They are important so I can further help her. Thank you so much. I really appreciate your help with this. [facility] Orders Onlyon 02-17-2023 Orders Only [id number] Brian Sadler 1950 F Date Provider Department Center 02/17/2023 [id number], HISTORICAL MP [facility] Family History Problem Relation Age of Onset Other Mother Coronary artery disease Mother Other Mother Other Mother Other Father Hypertension Father Hyperlipidemia Father Other Daughter Family Status - Relation Status Age at Mother Father Daughter [facility] Telemedicineon 02-16-2023 Telemedicine [id number] Brian Sadler 1950 F Date Provider Department Center 02/16/2023 [id number]-HWLEVKWDUPRESTON KUHN*NISHA [facility] Family History Problem Relation Age of Onset Other Mother Coronary artery disease Mother Other Mother Other Mother Other Father Hypertension Father Hyperlipidemia Father Other Daughter Family Status - Relation Status Age at Mother Father Daughter Level of Service:68476 MA OFFICE/OUTPATIENT ESTABLISHED HIGH MDM 40-54 MIN [facility] HISTOLOGY - TISSUE EXAMon LAB AP ASR [...] the Clinical Laboratory Improvement Amendments of 1998. Normal [facility] Comment on above: Performed By: #### L [id number] ####[facility] ([facility])[address] [facility] [place] [address] LAB AP CASE REPORT Normal [facility] Comment on above: Result Comment: Surg ical Pathology Case: [id number] Authorizing Provider: Dario Alarcon MD Collected: 02/09/2023 1345 Ordering Location: [facility] Received: 02/09/2023 [facility] Endoscopy Pathologist: Jessica Pugh MD Specimens: A) - Small Intestine, Duodenum, r/o celiac B) - Gastric, r/o h pylori C) - Large Intestine, random colon biopsies microscopic colitis Performed By: #### L [id number] ####[facility])[address] [place] [address] LAB AP CLINICAL INFORMATION Order Diagnoses [facility] Comment on above: Result Comment: R10. 9 [...] esophagitis present [ICD-10-CM] Performed By: #### L [id number] ####[facility] ([facility])[address] [place] [address] LAB AP GROSS DESCRIPTION [facility] Comment on above: Result Comment: A. S mall Intestine, Duodenum. The specimen is received in formalin labeled Vero Sadler, and r/o celiac . It consists of. 6 whitehead-pink irregular fragments of soft tissue measuring 0.6 x 0.4 x 0.2 cm in aggregate. The specimen is submitted in toto in 1 cassette. Vashti Marlow, Pathologists' Accounts Receivable Administrator student Clement Brower, Pathologists' Accounts Receivable Administrator B. Gastric. The specimen is received in formalin labeled Vero Shamika Doroteo, and r/o H. pylori . It consists of 3 whitehead-pink irregular fragments of soft tissue measuring 0.6 x 0.2 x 0.2 cm in aggregate. The specimen is submitted in toto in 1 cassette. Vashti Marlow Pathologists' Accounts Receivable Administrator student Clement Brower, Pathologists' Accounts Receivable Administrator C. Large Intestine. The specimen is received in formalin labeled Vero Sadler, and random colon biopsies microscopic colitis . It consists of 8 whitehead-pink irregular fragments of soft tissue measuring 0.9 x 0.6 x 0.2 cm in aggregate. The specimen is submitted in toto in 1 cassette. Vashti Marlow, Pathologists' Accounts Receivable Administrator student Clement Brower, Pathologists' Accounts Receivable Administrator Performed By: #### L [id number] ####[facility] ([facility])[address] [facility] [place] [address] LAB AP MICROSCOPIC DESCRIPTION Microscopic examination performed. [facility] Comment on above: Performed By: #### L [id number] ####[facility] ([facility])[address] [facility] [place] [address] LAB AP REPORT FINAL DIAGNOSIS NARRATIVE [facility] Comment on above: Result Comment: A. D [...] malignancy is seen. Performed By: #### L [id number] ####[facility] ([facility])[address] [place] [facility] [place] [address] HPon 02-09-2023 HP ---- -------- Attestation signed by Dario Alarcon MD at 02/09/2023 1:22 PM I personally [...] father. She had a prior colonoscopy at [facility], which was reportedly normal 3-4 years [...] father. She had a prior colonoscopy at [facility], which was reportedly normal 3-4 years ago. She has never had a prior EGD. PAST MEDICAL, SURGICAL, FAMILY, and SOCIAL HISTORY Past Medical History: Past Medical History: Diagnosis Date Abnormal ECG Adverse effect of anesthesia heartrate drops after colonoscopy Arthritis Chronic kidney disease COPD (chronic obstructive pulmonary disease) ([facility]/HCC) Hypertension Myocardial infarction ([facility]) Obstructive sleep apnea 10/02/2022 SOBIA=17.7 events/hour; Pranav SaO2=76%; Ttewao=377.0 lbs; BMI=52.7 kg/m2, Home Sleep Apnea Testing on 09/25/2022 at [facility] Past Surgical History: Past Surgical History: Procedure [...] mg tablet Won (more content not included)... Normal [facility] POCT GLUCOSE METER UNSOLICIT ED RESULTSon 02-09-2023 Glucose [Mass/Vol] 86 mg/dL Normal 70-105 [facility] Comment on above: Order Comment: Waive d Testing in the ED is performed under the ED CLIA certificate #[id number]. Result Comment: acle ment Performed By: #### L [id number] #### [facility] ([facility]) [address] [place] [address] Prep for Procedureon 023 Prep for Procedure [id number] Brian Sadler se 1950 F Date [facility] Department [place] 01/28/2023 DARIO JAVIER [facility] Family History Problem Relation Age of Onset Other Mother Coronary artery disease Mother Other Mother Other Mother Other Father Hypertension Father Hyperlipidemia Father Other Daughter Family Status - Relation Status Age at Mother Father Daughter Normal [facility] Follow-Upon 01-20-2023 Follow-Up [id number] Brian Sadler se 1950 F Date [facility] [place] 01/20/2023 CINTIA NIXON Family History Problem Relation Age of Onset Other Mother Coronary artery disease Mother Other Mother Other Mother Other Father Hypertension Father Hyperlipidemia Father Other Daughter Family Status - Relation Status Age at Mother Father Daughter Level of Service:72478 MA OFFICE/OUTPATIENT ESTABLISHED MOD MDM 30-39 MIN Reason for Visit and Comments: Dizziness [000650] Wound Check [434740] Normal [facility] HPon 01-12-2023 HP History Of Present Illness [...] by mouth in the morning. 01/11/2023 omega 8-lck-bwc-fish oil 350 mg-235 mg- 90 mg-597 mg [...] 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CMS/HCC) Pacemaker Jennifer Bullock MD [facility] NURSNOTEon 01-12-2023 NURSNOTE RN educated pt on d/ c instructions. RN encouraged pt to voice any questions or concerns. Pt verbalizes no questions or concerns at this time. [facility] NURSNOTE CHG wipes and betadi ne swabs completed. [facility] Orders Onlyon 01-12-2023 Orders Only [id number] Brian Sadler se 1950 F Date Provider Department Center 01/12/2023 1557-NAY MARRERO [facility] Family History Problem Relation Age of Onset Other Mother Coronary artery disease Mother Other Mother Other Mother Other Father Hypertension Father Hyperlipidemia Father Other Daughter Family Status - Relation Status Age at Mother Father Daughter Normal [facility] Orders Onlyon 01-06-2023 Orders Only [id number] Brian Sadler se 1950 F Date Provider Department Center 01/06/2023 1557-NAY MARRERO [facility] Family History Problem Relation Age of Onset Other Mother Coronary artery disease Mother Other Mother Other Mother Other Father Hypertension Father Hyperlipidemia Father Other Daughter Family Status - Relation Status Age at Mother Father Daughter Normal [facility] Office Visiton 01-05-2023 Follow-up visit [id number] Brian Sadler se 1950 Provider Department Center 01/05/2023 17727-VZAYJYRGMPRESTON KUHN*MP [facility] Family History Problem Relation Age of Onset Other Mother Coronary artery disease Mother Other Mother Other Mother Other Father Hypertension Father Hyperlipidemia Father Other Daughter Family Status - Relation Status Age at Mother Father Daughter Level of Service:52819 MA OFFICE/OUTPATIENT NEW MODERATE MDM 45-59 MINUTES Reason for Visit and Comments: New Patient [632] Abdominal Pain [248409] - Pt states when she eats she feels pain in her stomach change in bowel habits [Other] Gas [49] Normal [facility] Orders Onlyon 01-05-2023 Orders Only [id number] Brian Sadler se 1950 Provider Department Center 01/05/2023 COLLETTE RODRIGUEZ [facility] Family History Problem Relation Age of Onset Other Mother Coronary artery disease Mother Other Mother Other Mother Other Father Hypertension Father Hyperlipidemia Father Other Daughter Family Status - Relation Status Age at Mother Father Daughter Normal [facility] Office Visiton 01-01-2023 Follow-up visit [id number] Brian Sadler se M 1950 Date Provider Department Center 01/01/2023 COLLETTE RODRIGUEZ [facility] Family History Problem Relation Age of Onset Other Mother Coronary artery disease Mother Other Mother Other Mother Other Father Hypertension Father Hyperlipidemia Father Other Daughter Family Status - Relation Status Age at Mother Father Daughter Level of Service:56337 MA OFFICE/OUTPATIENT ESTABLISHED MOD MDM 30-39 MIN [facility] Follow-Upon 12-22-2022 Follow-Up [id number] Brian Sadler se 1950 Provider Department Center 12/22/2022 JOSE ANGEL LEE MP PAIN Medical Pavi Family History Problem Relation Age of Onset Other Mother Coronary artery disease Mother Other Mother Other Mother Other Father Hypertension Father Hyperlipidemia Father Other Daughter Family Status - Relation Status Age at Mother Father Daughter Level of Service:05376 MA POSTOP FOLLOW UP VISIT RELATED TO ORIGINAL PX Reason for Visit and Comments: Follow-up [787132] - Vertiflex at L3-4 and L4-5 [facility] Office Visiton 12-15-2022 Follow-up visit [id number] Brian Sadler se 1950 Provider Department Center 12/15/2022 21062-ZESEOQTIAN FORD CCC NEPHRO Comprehensiv Family History Problem Relation Age of Onset Other Mother Coronary artery disease Mother Other Mother Other Mother Other Father Hypertension Father Hyperlipidemia Father Other Daughter Family Status - Relation Status Age at Mother Father Daughter Level of Service:16095 MA OFFICE/OUTPATIENT ESTABLISHED LOW MDM 20-29 MIN Reason for Visit and Comments: Follow-up [693512] [facility] 36on 12-14-2022 36 Patient left a voice mail indicating she has been receiving calls to set up an appointment with her DME ([facility]) to be set up with CPAP. Patient was under the impression she would be meeting with me. Left voicemail with patient explaining that, since [facility] will be providing the equipment, she should have the initial appointment with them. Then, if she has further questions or issues, she can let me know and I will meet further with her. [facility] Follow-Upon 12-08-2022 Follow-Up [id number] Brian Sadler se 1950 Provider Department Center 12/08/2022 JOSE ANGEL LEE MP PAIN Medical Pavi Family History Problem Relation Age of Onset Other Mother Coronary artery disease Mother Other Mother Other Mother Other Father Hypertension Father Hyperlipidemia Father Other Daughter Family Status - Relation Status Age at Mother Father Daughter Level of Service:06372 MA POSTOP FOLLOW UP VISIT RELATED TO ORIGINAL PX Reason for Visit and Comments: Follow-up [288435] - one week post op -Vertiflex at L3-4 and L4-5 [facility] HPon 11-30-2022 HP H&P reviewed. The patient was examined and there are no changes to the H&P. [facility] OPNOTEon 11-30-2022 OPNOTE L3-L5 SPINE DECOMPRESSION , USING VERTIFLEX SUPERION INTERSPINOUS SPACER Operative Note Date: 11/30/2022 Location: [facility] OR Name: Vero Sadler, : 1950, Diagnosis Pre-op Diagnosis * Spinal stenosis of lumbar region with neurogenic claudication [M48.062] Post-op Diagnosis * Spinal stenosis of lumbar region with neurogenic claudication [M48.062] Procedures L3-L5 SPINE DECOMPRESSION , USING VERTIFLEX SUPERION INTERSPINOUS SPACER 87225 - MA INSJ STABLJ DEV W/O DCMPRN LUMBAR SINGLE LEVEL MA INSJ STABLJ DEV W/O DCMPRN LUMBAR SECOND LEVEL [40825] Surgeons * Jose Angel Meehan - Primary Procedure Summary Anesthesia: Monitor Anesthesia Care ASA: III Estimated Blood Loss: minimal Total IV Fluids: See anesthesia record Drains: * None in log * Implants Type Name Action Serial No. SUPERION IDS - 10MM Implanted SUPERION IDS - 12MM Implanted Staff: Pmo Manager: Eran Roa RN Scrub Person: Paulette García CST Investigations Chief: Deandre Campos CSA Indications: Vero Sadler is [...] Angel Meehan Attestation: (more content not included)... [facility] Orders Onlyon 11-30-2022 Orders Only [id number] Brian Sadler se 1950 F Date Provider Department Center 11/30/2022 JOSE ANGEL LEE MP PAIN Medical Pavi Family History Problem Relation Age of Onset Other Mother Coronary artery disease Mother Other Mother Other Mother Other Father Hypertension Father Hyperlipidemia Father Other Daughter Family Status - Relation Status Age at Mother Father Daughter [facility] POCT GLUCOSE METER UNSOLICIT ED RESULTSon 11-30-2022 Glucose [Mass/Vol] 92 mg/dL Normal 70[facility] Comment on above: Order Comment: Waive d Testing in the ED is performed under the ED CLIA certificate #[id number]. Result Comment: asor ia3 Performed By: #### L [id number] #### [facility] ([facility]ER) [address] [place] [address] Physician Referralon 023 Physician Referral [id number]:1 27 [facility] Physician Referralon 023 Physician Referral [id number]: 127 [facility] 36on 11-11-2022 36 Faxed order, demographics, HSAT report, and visit notes to [facility]. [facility] 36on 11-06-2022 36 Patient came into e office to discuss possible PAP masks. Patient did not want to try nasal pillows as she does not like the idea of anything going up her nose. Patient would like to try hybrid nasal mask (fitted for ResMed AirFit N30 size small or small-wide). Provided sample mask to patient. [facility] Follow-Upon 11-06-2022 Follow-Up [id number] Brian Sadler se 1950 F Date Provider Department Center 11/06/2022 JOSE ANGEL LEE MP PAIN Medical Pavi Family History Problem Relation Age of Onset Other Mother Coronary artery disease Mother Other Mother Other Mother Other Father Hypertension Father Hyperlipidemia Father Other Daughter Family Status - Relation Status Age at Mother Father Daughter Level of Service:17941 MA OFFICE/OUTPATIENT ESTABLISHED MOD MDM 30-39 MIN () Reason for Visit and Comments: Follow-up [305940] - 4 wk F/U TFESI [facility] HPon 11-06-2022 [facility] Interventional Pain Management SUBJECTIVE: Subjective 11/06/22 [...] since last visit 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 patient reports that overall she [...] further. She was able to walk around [facility] which she previously was not able to [...] reported as progressively (more content not included)... [facility] 36on 10-29-2022 36 Patient will come instead as she has an appointment in [place] that morning. [facility] 2910-27-2022 29 Addended by: MERRY FREIRE on: 10/28/2022 01:13 PM Modules accepted: Orders [facility] Office Visiton 10-27-2022 Follow-up visit [id number] Brian Sadler se 1950 F Date Provider Department Center 10/27/2022 Halina-IRVIN KWOK CARD [facility] Family History Problem Relation Age of Onset Other Mother Coronary artery disease Mother Other Mother Other Mother Other Father Hypertension Father Hyperlipidemia Father Other Daughter Family Status - Relation Status Age at Mother Father Daughter Level of Service:27181 MA OFFICE/OUTPATIENT ESTABLISHED MOD MDM 30-39 MIN Reason for Visit and Comments: Follow-up [[id number]] [facility] 36on 10-16-2022 36 Lengthy discussion w ith patient regarding results and PAP therapy. Patient will come into the office (10/29?) to discuss further and look at different mask options. [facility] 36 Yes, sent her refill. Normal [facility] Orders Onlyon 10-16-2022 Orders Only [id number] Brian Sadler se 1950 F Date Provider Department Center 10/16/2022 [id number] FORD [facility] NEPHRO Comprehensiv Family History Problem Relation Age of Onset Other Mother Coronary artery disease Mother Other Mother Other Mother Other Father Hypertension Father Hyperlipidemia Father Other Daughter Family Status - Relation Status Age at Mother Father Daughter [facility] 36on 10-15-2022 36 Patient called pelon michelle if she's suppose still be taking calcium carbonate-vitamin D3 1,000 mg-20 mcg and if so she's going to need some sent to the pharmacy. Please advise [facility] 36on 10-14-2022 36 ----- Message from A naga Cavazos MD sent at 10/02/2022 4:58 PM EDT ----- Regarding: Positive HSAT Damien, positive HSAT. Please notify the patient and ask if she would be agreeable to be set up on APAP therapy. [facility] HPon 10-07-2022 H&P reviewed. The patient was examined and there are no changes to the H&P. [facility] 36on 09-25-2022 36 Doesn't look like it was our office that contacted patient. [facility] 36 Pt returned call ple ase call back [facility] 09-22-2022 29 Addended by: FARNAZ DIXON on: 09/22/2022 08:04 PM Modules accepted: Orders [facility] Follow-Upon 09-22-2022 Follow-Up [id number] Brian Sadler se 1950 Provider Department [place] 09/22/2022 JOSE ANGEL LEE MP PAIN Medical Pavi Family History Problem Relation Age of Onset Other Mother Coronary artery disease Mother Other Mother Other Mother Other Father Hypertension Father Hyperlipidemia Father Other Daughter Family Status - Relation Status Age at Mother Father Daughter Level of Service:66066 MA OFFICE/OUTPATIENT ESTABLISHED MOD MDM 30-39 MIN Reason for Visit and Comments: Follow-up [232149] - DEXA scan [facility] HPon 09-22-2022 [facility] Interventional Pain Management SUBJECTIVE: Subjective 09/22/22 [...] since last visit 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 patient reports that overall she [...] further. She was able to walk around [employer] which she previously was not able [...] (more content not included)... Normal [facility] BASIC METABOLIC PANELon 06-2 Anion gap [Moles/Vol] 10 mmol/L Normal 7-20 [facility] Comment on above: Performed By: #### L [id number] ####[facility] ([facility])[address] [place] [address] Calcium [Mass/Vol] 8.8 mg/dL Normal 8.6-10.3 [facility] Comment on above: Performed By: #### L AB15 ####[facility] ([facility]ER)[address] [place] [address] Chloride [Moles/Vol] 108 mmol/L High 98-107 [facility] Comment on above: Performed By: #### L AB15 ####[facility] ([facility])[address] [place] [address] CO2 [Moles/Vol] 30 mmol/L Normal 21- [facility] Comment on above: Performed By: #### L AB15 ####[facility] ([facility])[address] [place] [address] Creatinine [Mass/Vol] 1.41 mg/dL High 0.60-1.20 [facility] Comment on above: Performed By: #### L AB15 ####[facility] ([facility])[address] [place] [address] GLOMERULAR FILTRATION RATE ML/MIN/1.73 SQ M.PREDICTED 39.9 mL/min/1.73m*2 Low >60.0 [facility] Comment on above: Result Comment: The [facility]???s estimated glomerular filtration rate (eGFR) will no [...] of individuals. Performed By: #### L AB15 ####[facility] [place] [address] Glucose [Mass/Vol] 102 mg/dL High 70-100 [facility] Comment on above: Performed By: #### L [id number] ####[facility] ([facility] [place] [address] Potassium [Moles/Vol] 4.4 mmol/L Normal 3.5-5.1 [facility] Comment on above: Performed By: #### L AB15 ####[facility] ([facility])[address] [place] [address] Sodium [Moles/Vol] 144 mmol/L Normal 136-145 [facility] Comment on above: Performed By: #### L [id number] ####[facility] ([facility])[address] [place] [address] Urea nitrogen [Mass/Vol] 19 mg/dL Normal 7-25 [facility] Comment on above: Performed By: #### L [id number] ####[facility] ([facility])[address] [place] [address] UREA NITROGEN/CREATININ E (MASS RATIO) IN SER/PLAS 13.5 Normal [facility] Comment on above: Performed By: #### L AB15 ####[facility] ([facility])[address] [place] [address] CBCon 09-08-2022 Erythrocyte distribution width (RBC) [Ratio] 13.8 % Normal 11.5-15.0 [facility] Comment on above: Performed By: #### L [id number] #### [facility] ([facility] [address] [place] [address] ERYTHROCYTE MEAN CORPUSCULAR HEMOGLOBIN CONCENTRATION (G/DL) BY AUTOMATED 30.6 g/dL Low 32.0-35.0 [facility] Comment on above: Performed By: #### L [id number] #### [facility] [address] [place] [address] Hematocrit (Bld) [Volume fraction] 41.5 % Normal 36.0-48.0 [facility] Comment on above: Performed By: #### L [id number] #### [facility] ([facility] [address] [place] [address] Hemoglobin (Bld) [Mass/Vol] 12.7 g/dL Normal 12.0-15.0 [facility] Comment on above: Performed By: #### L [id number] #### [facility] ([facility] [address] [place] [address] MCH (RBC) [Entitic mass] 28.3 pg Normal 27.0-33.0 [facility] Comment on above: Performed By: #### L [id number] #### [facility] [address] [place] [address] MCV (RBC) [Entitic vol] 92.6 fL Normal 82.0-98.0 [facility] Comment on above: Performed By: #### L [id number] #### [facility] [address] [place] [address] PLATELETS (10*3/UL) IN BLOOD AUTOMATED COUNT 232 10*3/uL Normal 150-400 [facility] Comment on above: Performed By: #### L [id number] #### [facility] [address] [place] [address] RBC (Bld) [#/Vol] 4.48 10*6/uL Normal 3.80-5.00 [facility] Comment on above: Performed By: #### L [id number] #### [facility] [address] [place] [address] WBC (Bld) [#/Vol] 7.39 10*3/uL Normal 4.00-10.60 [facility] Comment on above: Performed By: #### L [id number] #### [facility] [address] [place] [address] CREATININE, URINE, RANDOMon 06-27-2023 Creatinine (U) [Mass/Vol] 160.0 mg/dL Normal 26-299 [facility] Comment on above: Performed By: #### L [id number] #### [facility] [address] [place] [address] Performed By: #### L [id number] #### [facility] [address] [place] [address] Labon 09-08-2022 Lab [id number] Brian Sadler se 1950 F Date Provider Department [place] 09/08/2022 [facility] Comprehensiv Family History Problem Relation Age of Onset Other Mother Coronary artery disease Mother Other Mother Other Mother Other Father Hypertension Father Hyperlipidemia Father Other Daughter Family Status - Relation Status Age at Mother Father Daughter Normal [facility] MICROALBUMIN, URINE, RANDOMo n 09-08-2022 Albumin DL <= 20 mg/L (U) [Mass/Vol] 51 mg/dL Normal [facility] Comment on above: Performed By: #### L [id number] #### [facility] [address] [place] [address] MICROALBUMIN/CREAT ININE (MG/G) IN URINE 318.8 mg/g Creat High 0.0-30.0 [facility] Comment on above: Performed By: #### L [id number] #### [facility] [address] [place] [address] Office Visiton 09-08-2022 Follow-up visit [id number] Brian Sadler se 1950 F Date Provider Department [place] 09/08/2022 TIAN BRADSHAW [facility] NEPHRO Comprehensiv Family History Problem Relation Age of Onset Other Mother Coronary artery disease Mother Other Mother Other Mother Other Father Hypertension Father Hyperlipidemia Father Other Daughter Family Status - Relation Status Age at Mother Father Daughter Level of Service:41651 MA OFFICE/OUTPATIENT ESTABLISHED LOW MDM 20-29 MIN Reason for Visit and Comments: Follow-up [706043] Normal [facility] Refillon 08-05-2022 Refill [id number] Brian Sadler se 1950 F Date Provider Department Center 08/05/2022 344-GRICELDA WEN [facility] NEPHRO Comprehensiv Family History Problem Relation Age of Onset Other Mother Coronary artery disease Mother Other Mother Other Mother Other Father Hypertension Father Hyperlipidemia Father Other Daughter Family Status - Relation Status Age at Mother Father Daughter Reason for Visit and Comments: Med Refill [[id number]] [facility] Office Visiton 08-04-2022 Follow-up visit [id number] Brian Sadler se 1950 Date Provider Department Center 08/04/2022 271-TATO SALCIDO CARD [facility] Family History Problem Relation Age of Onset Other Mother Coronary artery disease Mother Other Mother Other Mother Other Father Hypertension Father Hyperlipidemia Father Other Daughter Family Status - Relation Status Age at Mother Father Daughter Level of Service:39311 MA OFFICE/OUTPATIENT ESTABLISHED SF MDM 10-19 MIN Reason for Visit and Comments: Follow-up [301033] - 3 month follow up [facility] Follow-Upon 07-28-2022 Follow-Up [id number] Brian Sadler se 1950 Provider Department Center 07/28/2022 Gladys-JOSE ANGEL MEEHAN PAIN Medical Pavi Family History Problem Relation Age of Onset Other Mother Coronary artery disease Mother Other Mother Other Mother Other Father Hypertension Father Hyperlipidemia Father Other Daughter Family Status - Relation Status Age at Mother Father Daughter Level of Service:04460 MA OFFICE/OUTPATIENT ESTABLISHED LOW MDM 20-29 MIN Reason for Visit and Comments: Follow-up [[id number]] - 2 month follow up [facility] HPon 07-22-2022 [facility] Cardiology Consul t Note Reason for [...] kidney disease COPD (chronic obstructive pulmonary disease) ([facility]) Hypertension Myocardial infarction ([facility]) PSH: Past Surgical History: Procedure Laterality Date [...] mg by mouth in the morning. omega 8-znj-wnm-fish oil 350 mg-235 mg- 90 mg-597 mg [...] the morning.) 60 tablet 2 [DISCONTINUED] rutin/hesp/bioflav/C/her [id number] (BIOFLEX ORAL) Take 1 tablet by mouth once daily as directed. [DISCONTINUED] spironolactone (Aldac (more content not included)... [facility] NURSNOTEon 07-22-2022 NURSNOTE RN educated pt on d/ c instructions. RN encouraged pt to voice any questions or concerns. Pt verbalizes no questions or concerns at this time. Pt was wheeled off of unit with all of belongings. [facility] CBC AUTO DIFFon 07-17-2022 BASO # 0.0 103/ul Normal 0.0-0.1 [facility] Comment on above: Performed By: #### C BC #### [facility] [address] [place] [address] Dr. Eusebia Moralez Basophils/100 WBC (Bld) 0.6 % Normal 0.2-2.0 [facility] Comment on above: Performed By: #### C BC #### [facility] [address] [place] [address] Dr. Eusebia Moralez EO # 0.2 103/ul Normal 0.0-0.7 [facility] Comment on above: Performed By: #### C BC #### [facility] [address] [place] [address] Dr. Eusebia Moralez Eosinophils/100 WBC (Bld) 2.2 % Normal 0.9-7.0 [facility] Comment on above: Performed By: #### C BC #### [facility] [address] [place] [address] Dr. Eusebia Moralez Erythrocyte distribution width (RBC) [Ratio] 13.0 % Normal 11.0-15.0 [facility] Comment on above: Performed By: #### C BC #### [facility] [address] [place] [address] Dr. Eusebia Moralez Hematocrit (Bld) [Volume fraction] 40.5 % Normal 36.0-48.0 [facility] Comment on above: Performed By: #### C BC #### [facility] [address] [place] [address] Dr. Eusebia Moralez Hemoglobin (Bld) [Mass/Vol] 12.7 g/dL Normal 12.0-16.0 [facility] Comment on above: Performed By: #### C BC #### [facility] [address] [place] [address] Dr. Eusebia Moralez IG # 0.02 10e3/ul Normal 0.00-0.03 [facility] Comment on above: Performed By: #### C BC #### [facility] [address] [place] [address] Dr. Eusebia Moralez IG % 0.3 % Normal 0.0-0.5 [facility] Comment on above: Performed By: #### C BC #### [facility] [address] [place] [address] Dr. Eusebia Moralez LYMPH # 1.4 103/ul Normal 1.2-3.8 [facility] Comment on above: Performed By: #### C BC #### [facility] [address] [place] [address] Dr. Eusebia Moralez Lymphocytes/100 WBC (Bld) 19.9 % Critically low 20.5-60.0 [facility] Comment on above: Performed By: #### C BC #### [facility] [address] [place] [address] Dr. Eusebia Moralez MANUAL DIFF REQ NO Normal [facility] Comment on above: Performed By: #### C BC #### [facility] [address] [place] [address] Dr. Eusebia Moralez MCH (RBC) [Entitic mass] 29.1 pg Normal 26.7-34.0 [facility] Comment on above: Performed By: #### C BC #### [facility] [address] [place] [address] Dr. Eusebia Moralez MCHC (RBC) [Mass/Vol] 31.4 g/dL Normal 29.9-35.2 [facility] Comment on above: Performed By: #### C BC #### [facility] [address] [place] [address] Dr. Eusebia Moralez MCV (RBC) [Entitic vol] 92.9 fL Normal 81.0-99.0 [facility] Comment on above: Performed By: #### C BC #### [facility] [address] [address] [address] Eusebia Moralez MONO # 0.7 103/ul Normal 0.3-0.8 [facility] Comment on above: Performed By: #### C BC #### [facility] [address] [place] [address] Dr. Eusebia Moralez Monocytes/100 WBC (Bld) 9.4 % Normal 1.7-12.0 [facility] Comment on above: Performed By: #### C BC #### [facility] [address] [place] [address] Dr. Eusebia Moralez NEUT # 4.7 103/ul Normal 1.4-6.5 [facility] Comment on above: Performed By: #### C BC #### [facility] [address] [place] [address] Dr. Eusebia Moralez Neutrophils/100 WBC (Bld) 67.6 % Normal 43.0-75.0 [facility] Comment on above: Performed By: #### C BC #### [facility] [address] [place] [address] Dr. Eusebia Moralez Platelet mean volume (Bld) [Entitic vol] 9.9 fL Normal 9.5-13.5 [facility] Comment on above: Performed By: #### C BC #### [facility] [address] [place] [address] Dr. Eusebia Moralez PLT 218 103/ul Normal 150-450 [facility] Comment on above: Performed By: #### C BC #### [facility] [address] [place] [address] Dr. Eusebia Moralez RBC 4.36 106/ul Normal 4.20-5.40 [facility] Comment on above: Performed By: #### C BC #### [facility] [address] [place] [address] Dr. Eusebia Moralez WBC 6.9 103/ul Normal 4.0-11.0 [facility] Comment on above: Performed By: #### C BC #### [facility] [address] [address] [address] Eusebia Moralez PROF CHEM 8 (BAS METB)on Anion gap [Moles/Vol] 9.0 mmol/L Normal [facility] Comment on above: Performed By: #### B MP #### [facility] [address] [address] [address] Eusebia Moralez Calcium [Mass/Vol] 9.2 mg/dL Normal 8.5-10.1 [facility] Comment on above: Performed By: #### B MP #### [facility] [address] [address] [address] Eusebia Moralez Chloride [Moles/Vol] 103 mmol/L Normal 98-107 [facility] Comment on above: Performed By: #### B MP #### [facility] [address] [place] [address] Dr. Eusebia Moralez CO2 [Moles/Vol] 32.9 mmol/L Critically high 21.0-32.0 [facility] Comment on above: Performed By: #### B MP #### [facility] [address] [address] [address] Eusebia Moralez Creatinine [Mass/Vol] 1.74 mg/dL Critically high 0.55-1.02 [facility] Comment on above: Performed By: #### B MP #### [facility] [address] [address] [address] Eusebia Moralez EGFR-AF SWEDISH 35 mL/min/1.73m2 Critically low >=60 [facility] Comment on above: Performed By: #### B MP #### [facility] [address] [address] [address] Eusebia Moralez EGFR-NON AF SWEDISH 29 mL/min/1.73m2 Critically low >=60 [facility] Comment on above: Performed By: #### B MP #### [facility] [address] [address] [address] Eusebia Moralez Glucose [Mass/Vol] 101 mg/dL Normal 74-106 [facility] Comment on above: Performed By: #### B MP #### [facility] [address] [address] [address] Eusebia Moralez Potassium [Moles/Vol] 3.9 mmol/L Normal 3.5-5.1 [facility] Comment on above: Performed By: #### B MP #### [facility] [address] [address] [address] Eusebia Moralez Sodium [Moles/Vol] 141 mmol/L Normal 136-145 [facility] Comment on above: Performed By: #### B MP #### [facility] [address] [address] [address] Eusebia Moralez Urea nitrogen [Mass/Vol] 34.0 mg/dL Critically high 7.0-18.0 [facility] Comment on above: Performed By: #### B MP #### [facility] [address] [address] [address] Eusebia Moralez Urea nitrogen/Creatinin e [Mass ratio] 19.5 mg/mg Normal [facility] Comment on above: Performed By: #### B MP #### [facility] [address] [address] [address] Eusebia Moralez CBC AUTO DIFFon 07-02-2022 BASO # 0.1 103/ul Normal 0.0-0.1 [facility] Comment on above: Performed By: #### C BC ####[facility] [address] [address]DrRadha Moralez Basophils/100 WBC (Bld) 0.7 % Normal 0.2-2.0 [facility] Comment on above: Performed By: #### C BC ####[facility] [address] [address]DrRadha Moralez EO # 0.1 103/ul Normal 0.0-0.7 [facility] Comment on above: Performed By: #### C BC ####[facility] [address] [address]DrRadha Moralez Eosinophils/100 WBC (Bld) 1.8 % Normal 0.9-7.0 [facility] Comment on above: Performed By: #### C BC ####[facility] [address] [address]Dr. Eusebia Moralez Erythrocyte distribution width (RBC) [Ratio] 13.1 % Normal 11.0-15.0 [facility] Comment on above: Performed By: #### C BC ####[facility] [address] [place], [place] [address]Dr. Eusebia Moralez Hematocrit (Bld) [Volume fraction] 40.2 % Normal 36.0-48.0 [facility] Comment on above: Performed By: #### C BC ####[facility] [address] [place], [place] [address]Dr. Eusebia Moralez Hemoglobin (Bld) [Mass/Vol] 12.5 g/dL Normal 12.0-16.0 [facility] Comment on above: Performed By: #### C BC ####[facility] [address] [place], [place] [address]Dr. Eusebia Moralez IG # 0.01 10e3/ul Normal 0.00-0.03 [facility] Comment on above: Performed By: #### C BC ####[facility] [address] [place], [place] [address]Dr. Eusebia Moralez IG % 0.1 % Normal 0.0-0.5 [facility] Comment on above: Performed By: #### C BC ####[facility] [address] [place], [place] [address]Dr. Eusebia Moralez LYMPH # 1.5 103/ul Normal 1.2-3.8 [facility] Comment on above: Performed By: #### C BC ####[facility] [address] [place], [place] [address]Dr. Eusebia Moralez Lymphocytes/100 WBC (Bld) 22.6 % Normal 20.5-60.0 [facility] Comment on above: Performed By: #### C BC ####[facility] [address] [place], [place] [address]Dr. Eusebia Moralez MANUAL DIFF REQ NO Normal [facility] Comment on above: Performed By: #### C BC ####[facility] [address] [id number]. Eusebia Kirt MCH (RBC) [Entitic mass] 29.3 pg Normal 26.7-34.0 [facility] Comment on above: Performed By: #### C BC ####[facility] [address] [id number]. Eusebia Kirt MCHC (RBC) [Mass/Vol] 31.1 g/dL Normal 29.9-35.2 [facility] Comment on above: Performed By: #### C BC ####[facility] [address] [id number]. Lisadenise Moralez MCV (RBC) [Entitic vol] 94.4 fL Normal 81.0-99.0 [facility] Comment on above: Performed By: #### C BC ####[facility] [address] [place], [place] [address]Dr. Eusebia Moralez MONO # 0.6 103/ul Normal 0.3-0.8 [facility] Comment on above: Performed By: #### C BC ####[facility] [address] [place], [place] [address]Dr. Eusebia Moralez Monocytes/100 WBC (Bld) 9.1 % Normal 1.7-12.0 [facility] Comment on above: Performed By: #### C BC ####[facility] [address] [place], [place] [address]Dr. Eusebia Moralez NEUT # 4.4 103/ul Normal 1.4-6.5 [facility] Comment on above: Performed By: #### C BC ####[facility] [address] [place], [place] [id number]. Eusebia Moralez Neutrophils/100 WBC (Bld) 65.7 % Normal 43.0-75.0 [facility] Comment on above: Performed By: #### C BC ####[facility] [address] [place], [place] [address]Dr. Eusebia Moralez Platelet mean volume (Bld) [Entitic vol] 9.6 fL Normal 9.5-13.5 [facility] Comment on above: Performed By: #### C BC ####[facility] [address] [place] [address]Dr. Eusebia Kirt PLT 204 103/ul Normal 150-450 [facility] Comment on above: Performed By: #### C BC ####[facility] [address] [place] [id number]. Eusebia Moralez RBC 4.26 106/ul Normal 4.20-5.40 [facility] Comment on above: Performed By: #### C BC ####[facility] [address] [place] [id number]. Eusebia Kirt WBC 6.7 103/ul Normal 4.0-11.0 [facility] Comment on above: Performed By: #### C BC ####[facility] [address] [place] [address]Dr. Eusebia Moralez PROF CHEM 8 (BAS METB)on Anion gap [Moles/Vol] 11.2 mmol/L Normal [facility] Comment on above: Performed By: #### B MP ####[facility] [address] [place], [place] [address]Dr. Eusebia Moralez Calcium [Mass/Vol] 9.2 mg/dL Normal 8.5-10.1 [facility] Comment on above: Performed By: #### B MP ####[facility] [address] [place], [place] [address]Dr. Eusebia Moralez Chloride [Moles/Vol] 109 mmol/L Critically high 98-107 [facility] Comment on above: Performed By: #### B MP ####[facility] [address] [place] [address]Dr. Eusebia Moralez CO2 [Moles/Vol] 27.6 mmol/L Normal 21.0-32.0 [facility] Comment on above: Performed By: #### B MP ####[facility] [address] [place] [address]Dr. Eusebia Moralez Creatinine [Mass/Vol] 1.49 mg/dL Critically high 0.55-1.02 [facility] Comment on above: Performed By: #### B MP ####[facility] [address] [place] [id number]. Eusebia Kirt EGFR-AF SWEDISH 42 mL/min/1.73m2 Critically low >=60 [facility] Comment on above: Performed By: #### B MP ####[facility] [address] [place] [id number]. Lisadenise Kirt EGFR-NON AF SWEDISH 34 mL/min/1.73m2 Critically low >=60 [facility] Comment on above: Performed By: #### B MP ####[facility] [address] [place] [id number]. Eusebia Moralez Glucose [Mass/Vol] 89 mg/dL Normal 74-106 [facility] Comment on above: Performed By: #### B MP ####[facility] [address] [place] [id number]. Eusebia Moralez Potassium [Moles/Vol] 4.8 mmol/L Normal 3.5-5.1 [facility] Comment on above: Performed By: #### B MP ####[facility] [address] [place] [id number]. Eusebia Moralez Sodium [Moles/Vol] 143 mmol/L Normal 136-145 [facility] Comment on above: Performed By: #### B MP ####[facility] [address]rl[address] [place] [id number]. Eusebia Moralez Urea nitrogen [Mass/Vol] 27.0 mg/dL Critically high 7.0-18.0 [facility] Comment on above: Performed By: #### B MP ####[facility] [address] [place] [id number]. Eusebia Moralez Urea nitrogen/Creatinin e [Mass ratio] 18.1 mg/mg Normal [facility] Comment on above: Performed By: #### B MP ####[facility] [address] [place] [id number]. Eusebia Moralez Orders Onlyon 06-29-2022 Orders Only [id number] Brian Sadler se 1950 Provider Department Center 06/29/2022 RAYMOND BACON [facility] VASC LAB NM HeartVAS Family History Problem Relation Age of Onset Other Mother Coronary artery disease Mother Other Mother Other Mother Other Father Hypertension Father Hyperlipidemia Father Other Daughter Family Status - Relation Status Age at Mother Father Daughter [facility] 36on 05-24-2022 36 Noted. Thank you. [facility] 36on 05-19-2022 36 Medication has been resent to pharmacy. [facility] Follow-Upon 05-19-2022 Follow-Up [id number] Brian Sadler se 1950 Provider Department [place] 05/19/2022 JOSE ANGEL LEE [facility] Family History Problem Relation Age of Onset Other Mother Coronary artery disease Mother Other Mother Other Mother Other Father Hypertension Father Hyperlipidemia Father Other Daughter Family Status - Relation Status Age at Mother Father Daughter Level of Service:48551 MA POSTOP FOLLOW UP VISIT RELATED TO ORIGINAL PX [facility] Office Visiton 05-19-2022 Follow-up visit [id number] Brian Sadler se 1950 Provider Department Center 05/19/2022 TIAN BRADSHAW [facility] NEPHRO Comprehensiv Family History Problem Relation Age of Onset Other Mother Coronary artery disease Mother Other Mother Other Mother Other Father Hypertension Father Hyperlipidemia Father Other Daughter Family Status - Relation Status Age at Mother Father Daughter Level of Service:36741 MA OFFICE/OUTPATIENT ESTABLISHED MOD MDM 30-39 MIN Reason for Visit and Comments: Follow-up [900949] - 1 month follow up [facility] HPon 05-11-2022 HP H&P reviewed. The patient was examined and there are no changes to the H&P. [facility] Orders Onlyon 05-11-2022 Orders Only [id number] Brian Sadler se 1950 Provider Department Center 05/11/2022 JOSE ANGEL LEE [facility] PA[facility] Family History Problem Relation Age of Onset Other Mother Coronary artery disease Mother Other Mother Other Mother Other Father Hypertension Father Hyperlipidemia Father Other Daughter Family Status - Relation Status Age at Mother Father Daughter Normal [facility] POCT GLUCOSE METER UNSOLICIT ED RESULTSon 05-11-2022 Glucose [Mass/Vol] 101 mg/dL Normal 70-105 Billy [facility] Comment on above: Result Comment: neno tish Performed By: #### L [id number] #### [facility] ([facility]) [address] [place] [address] [id number] 04-29-2022 [id number] No outpatient medications have been marked as taking for the 05/11/22 encounter (Hospital Encounter). Additional Instructions: NPO AFTER MIDNIGHT. MUST HAVE A LOG CHAIN WORKER TO TAKE YOU HOME AND SOMEONE TO [...] ID AND MED LIST. Normal [facility] Labon 04-24-2022 Lab [id number] SadlerBrian se 1950 F Date Provider Department Center 04/24/2022 2243-[facility] RESOURCE DCC Draw [employer] Family History Problem Relation Age of Onset Other Mother Coronary artery disease Mother Other Mother Other Mother Other Father Hypertension Father Hyperlipidemia Father Other Daughter Family Status - Relation Status Age at Mother Father Daughter Normal [facility] MRSA/MSSA DNA NASALon 2022 MRSA DNA Negative Normal Negative, Invalid [facility] Comment on above: Performed By: #### L [id number] ####[facility] ([facility])[address] [place] [address] MSSA DNA Negative Normal Negative, Invalid [facility] Comment on above: Performed By: #### L [id number] ####[facility] ([facility])[address] [place] [address] Office Visiton 04-24-2022 Follow-up visit [id number] Brian Sadler se 1950 F Date Provider Department Center 04/24/2022 IRVIN ARNOLD [facility] History Problem Relation Age of Onset Other Mother Coronary artery disease Mother Other Mother Other Mother Other Father Hypertension Father Hyperlipidemia Father Other Daughter Family Status - Relation Status Age at Mother Father Daughter Level of Service:25701 MA OFFICE/OUTPATIENT NEW HIGH MDM 60-74 MINUTES Reason for Visit and Comments: Follow-up [654308] - Patient referred to assess abnormal heart rhythms. Dizziness [[id number]] Normal [facility] PHOSPHORUSon 04-24-2022 Magnesium [Mass/Vol] 2.9 mg/dL Normal 2.5-5.0 [facility] Comment on above: Performed By: #### L [id number] #### [facility] ([facility] [address] [place] [address] PROTIME-INRon 04-24-2022 INR IN PPP BY COAGULATION ASSAY 1.02 Normal 0.90-1.10 [facility] Comment on above: Result Comment: ACCC P [...] RANGE. CHEST 1995;108:231S-246S. Performed By: #### L [id number] #### [facility] ([facility]) [address] [place] [address] PROTHROMBIN TIME (PT) IN PPP BY COAGULATION ASSAY 13.4 Seconds Normal 12.3-14.8 [facility] Comment on above: Performed By: #### L [id number] #### [facility] ([facility]) [address] [place] [address] PTH, INTACTon 04-24-2022 PARATHYRIN INTACT (PG/ML) IN SER/PLAS 80 pg/mL Normal 12-88 [facility] Comment on above: Performed By: #### L [id number] #### [facility] [address] [facility] [place] [address] VITAMIN D 25 HYDROXYon 04-24 CALCIDIOL (25 [place] VITAMIN D3) (NG/ML) IN SER/PLAS 32.6 ng/mL Normal 30.0-80.0 [facility] Comment on above: Result Comment: >80. 0 Toxicity possible Performed By: #### L [id number] #### [facility] [address] [place] [address] CT LUNG CANCER SCREENINGon 1 04-27-2021 CT [...] AMBAR MAYA Date: 2022-02-24 08:15 Normal [facility] PROF CHEM 8 (BAS METB)on Anion gap [Moles/Vol] 9.7 mmol/L Normal [facility] Comment on above: Performed By: #### B MP #### [facility] [address] [address] [address] Eusebia Moralez Calcium [Mass/Vol] 8.8 mg/dL Normal 8.5-10.1 [facility] Comment on above: Performed By: #### B MP #### [facility] [address] [address] [address] Eusebia Moralez Chloride [Moles/Vol] 107 mmol/L Normal 98-107 [facility] Comment on above: Performed By: #### B MP #### [facility] [address] [address] [address] Eusebia Moralez CO2 [Moles/Vol] 29.5 mmol/L Normal 21.0-32.0 [facility] Comment on above: Performed By: #### B MP #### [facility] [address] [address] [address] Eusebia Moralez Creatinine [Mass/Vol] 1.83 mg/dL Critically high 0.55-1.02 [facility] Comment on above: Performed By: #### B MP #### [facility] [address] [address] [address] Eusebia Moralez EGFR-AF SWEDISH 33 mL/min/1.73m2 Critically low >=60 [facility] Comment on above: Performed By: #### B MP #### [facility] [address] [address] [address] Eusebia Moralez EGFR-NON AF SWEDISH 27 mL/min/1.73m2 Critically low >=60 [facility] Comment on above: Performed By: #### B MP #### [facility] [address] [address] [address] Eusebia Moralez Glucose [Mass/Vol] 87 mg/dL Normal 74-106 [facility] Comment on above: Performed By: #### B MP #### [facility] [address] [address] [address] Eusebia Moralez Potassium [Moles/Vol] 5.2 mmol/L Critically high 3.5-5.1 [facility] Comment on above: Performed By: #### B MP #### [facility] [address] [address] [address] Eusebia Moralez Sodium [Moles/Vol] 141 mmol/L Normal 136-145 [facility] Comment on above: Performed By: #### B MP #### [facility] [address] [address] [address] Eusebia Moralez Urea nitrogen [Mass/Vol] 37.0 mg/dL Critically high 7.0-18.0 [facility] Comment on above: Performed By: #### B MP #### [facility] [address] [address] [address] Eusebia Moralez Urea nitrogen/Creatinin e [Mass ratio] 20.2 mg/mg Normal [facility] Comment on above: Performed By: #### B MP #### [facility] [address] [address] [address] Eusebia Moralez NM STRESS/REST MULTIon 01-23 NM STRESS/REST MULTI Patient: VERO SADLER Exam Date: 01/23/2022 : 1950 Gender:F Ordering : DR DEBBIE BHATIA . Admission #: [id number] Family : Order #: [id number] CLICK HERE TO VIEW EXAM RADIOLOGY REPORT [...] Canchola MD on 01/26/2022 at 13:45 Normal [facility] ECHOCARDIO M/2D COMPLETEon 1 03-23-2021 ECHOCARDIO M/2D COMPLETE Patient: VERO SADLER Exam Date: 01/21/2022 : 1950 Gender:F Ordering : DR DEBBIE BHATIA . Admission #: [id number] Family : Order #: [id number] CLICK HERE TO VIEW EXAM ECHOCARDIOGRAM REPORT [...] Salcido M.D. on 01/21/2022 at 09:17 Normal [facility] XR DEXA BONE DENSITYon 01-21 XR DEXA [...] by: RAJI CANCHOLA Date: 2022-01-21 10:03 Normal [facility] BNPon 01-14-2022 Natriuretic peptide B (Bld) [Mass/Vol] 834.0 pg/mL Normal <=900.0 [facility] Comment on above: Performed By: #### T SH, BNP, CMP, T7, LIPID ####[facility] [address] [place] [address]Dr. Eusebia Moralez CBC AUTO DIFFon 01-14-2022 BASO # 0.0 103/ul Normal 0.0-0.1 [facility] Comment on above: Performed By: #### C BC #### [facility] [address] [address] [address] Eusebia Moralez Basophils/100 WBC (Bld) 0.4 % Normal 0.2-2.0 [facility] Comment on above: Performed By: #### C BC #### [facility] [address] [address] [address] Eusebia Moralez EO # 0.1 103/ul Normal 0.0-0.7 [facility] Comment on above: Performed By: #### C BC #### [facility] [address] [address] [address] Eusebia Moralez Eosinophils/100 WBC (Bld) 1.1 % Normal 0.9-7.0 [facility] Comment on above: Performed By: #### C BC #### [facility] [address] [place] [address] Dr. Eusebia Moralez Erythrocyte distribution width (RBC) [Ratio] 15.0 % Normal 11.0-15.0 [facility] Comment on above: Performed By: #### C BC #### [facility] [address] [place] [address] Dr. Eusebia Moralez Hematocrit (Bld) [Volume fraction] 39.6 % Normal 36.0-48.0 [facility] Comment on above: Performed By: #### C BC #### [facility] [address] [place] [address] Dr. Eusebia Moralez Hemoglobin (Bld) [Mass/Vol] 12.4 g/dL Normal 12.0-16.0 [facility] Comment on above: Performed By: #### C BC #### [facility] [address] [place] [address] Dr. Eusebia Moralez IG # 0.02 10e3/ul Normal 0.00-0.03 [facility] Comment on above: Performed By: #### C BC #### [facility] [address] [place] [address] Dr. Eusebia Moralez IG % 0.3 % Normal 0.0-0.5 [facility] Comment on above: Performed By: #### C BC #### [facility] [address] [place] [address] Dr. Eusebia Moralez LYMPH # 1.3 103/ul Normal 1.2-3.8 [facility] Comment on above: Performed By: #### C BC #### [facility] [address] [place] [address] Dr. Eusebia Moralez Lymphocytes/100 WBC (Bld) 17.9 % Critically low 20.5-60.0 [facility] Comment on above: Performed By: #### C BC #### [facility] [address] [place] [address] Dr. Eusebia Moralez MANUAL DIFF REQ NO Normal [facility] Comment on above: Performed By: #### C BC #### [facility] [address] [address] [address] Eusebia Moralez MCH (RBC) [Entitic mass] 29.8 pg Normal 26.7-34.0 [facility] Comment on above: Performed By: #### C BC #### [facility] [address] [place] [address] Dr. Eusebia Moralez MCHC (RBC) [Mass/Vol] 31.3 g/dL Normal 29.9-35.2 [facility] Comment on above: Performed By: #### C BC #### [facility] [address] [place] [address] Dr. Eusebia Moralez MCV (RBC) [Entitic vol] 95.2 fL Normal 81.0-99.0 [facility] Comment on above: Performed By: #### C BC #### [facility] [address] [place] [address] Dr. Eusebia Moralez MONO # 0.5 103/ul Normal 0.3-0.8 [facility] Comment on above: Performed By: #### C BC #### [facility] [address] [place] [address] Dr. Eusebia Moralez Monocytes/100 WBC (Bld) 7.0 % Normal 1.7-12.0 [facility] Comment on above: Performed By: #### C BC #### [facility] [address] [place] [address] Dr. Eusebia Moralez NEUT # 5.2 103/ul Normal 1.4-6.5 [facility] Comment on above: Performed By: #### C BC #### [facility] [address] [place] [address] Dr. Eusebia Moralez Neutrophils/100 WBC (Bld) 73.3 % Normal 43.0-75.0 [facility] Comment on above: Performed By: #### C BC #### [facility] [address] [place] [address] Dr. Eusebia Moralez Platelet mean volume (Bld) [Entitic vol] 9.5 fL Normal 9.5-13.5 [facility] Comment on above: Performed By: #### C BC #### [facility] [address] [address] [address] Eusebia Moralez PLT 188 103/ul Normal 150-450 [facility] Comment on above: Performed By: #### C BC #### [facility] [address] [address] [address] Eusebia Moralez RBC 4.16 106/ul Critically low 4.20-5.40 [facility] Comment on above: Performed By: #### C BC #### [facility] [address] [address] [address] Eusebia Moralez WBC 7.0 103/ul Normal 4.0-11.0 [facility] Comment on above: Performed By: #### C BC #### [facility] [address] [address] [address] Eusebia Moralez FREE THYROXINE INDEX T7on FTI 2.45 Normal 1.30-4.50 [facility] Comment on above: Performed By: #### T SH, BNP, CMP, T7, LIPID ####[facility] [address] [place] [address]Dr. Eusebia Moralez T3U 35.0 % Normal 30.0-39.0 [facility] Comment on above: Performed By: #### T SH, BNP, CMP, T7, LIPID ####[facility] [address] [place] [id number]. Eusebia Moralez T4 [Mass/Vol] 7.00 ug/dL Normal 4.80-13.90 [facility] Comment on above: Performed By: #### T SH, BNP, CMP, T7, LIPID ####[facility] [address] [place] [id number]. Eusebia Moralez IRONon 01-14-2022 Iron [Mass/Vol] 58.0 ug/dL Normal 50.0-170.0 [facility] Comment on above: Performed By: #### I MONIE #### [facility] [address] [address] [address] Eusebia Moralez LIPID PROFILEon 01-14-2022 CHOL-HDL RATIO NORM SEE BELOW Normal [facility] Comment on above: Result Comment: 3.3 - 4.4 LOW RISK 4.4 - 7.1 AVERAGE RISK 7.1 - 11.0 MODERATE RISK >11.0 HIGH RISK Performed By: #### T SH, BNP, CMP, T7, LIPID ####[facility] [address] [place] [id number]. Eusebia Moralez Cholesterol [Mass/Vol] 186 mg/dL Normal <=200 [facility] Comment on above: Performed By: #### T SH, BNP, CMP, T7, LIPID ####[facility] [address] [place] [id number]. Eusebia Moralez Cholesterol in HDL [Mass/Vol] 45 mg/dL Normal 40-60 [facility] Comment on above: Performed By: #### T SH, BNP, CMP, T7, LIPID ####[facility] [address] [place] [address]Dr. Eusebia Kirt Cholesterol in LDL [Mass/Vol] 118.4 mg/dL Normal [facility] Comment on above: Performed By: #### T SH, BNP, CMP, T7, LIPID ####[facility] [address] [place] [address]Dr. Eusebia Kirt Cholesterol.total/ Cholesterol in HDL [Mass ratio] 4.1 {ratio} Normal [facility] Comment on above: Performed By: #### T SH, BNP, CMP, T7, LIPID ####[facility] [address] [place] [id number]. Eusebia Moralez HDL NORMAL > or = 60 mg/dl - LO W CARDIOVASCULAR RISK <40 mg/dl - HIGH CARDIOVASCULAR RISK Normal [facility] Comment on above: Performed By: #### T SH, BNP, CMP, T7, LIPID ####[facility] [address] [place] [address]Dr. Eusebia Moralez LDL CALC NORMAL SEE BELOW Normal [facility] Comment on above: Result Comment: <100 mg/dl OPTIMAL 100 - 129 mg/dl NEAR OR ABOVE OPTIMAL 130 - 159 mg/dl BORDERLINE HIGH 160 - 189 mg/dl HIGH >190 mg/dl VERY HIGH Performed By: #### T SH, BNP, CMP, T7, LIPID ####[facility] [address] [place] [id number]. Eusebia Moralez Triglyceride [Mass/Vol] 113 mg/dL Normal <=150 [facility] Comment on above: Performed By: #### T SH, BNP, CMP, T7, LIPID ####[facility] [address] [place], [place] [address]AjDr. Eusebia Moralez VLDL CALC 22.6 mg/dL Normal [facility] Comment on above: Performed By: #### T SH, BNP, CMP, T7, LIPID ####[facility] [address] [place] [address]Dr. Eusebia Moralez PROF 14(COMP METB)on 022 Albumin [Mass/Vol] 3.3 g/dL Critically low 3.4-5.0 [facility] Comment on above: Performed By: #### T SH, BNP, CMP, T7, LIPID #### [facility] [address] [address] [address] Eusebia Moralez Albumin/Globulin [Mass ratio] 0.9 {ratio} Normal [facility] Comment on above: Performed By: #### T SH, BNP, CMP, T7, LIPID #### [facility] [address] [address] [address] Eusebia Moralez ALP [Catalytic activity/Vol] 81 U/L Normal 46-116 [facility] Comment on above: Performed By: #### T SH, BNP, CMP, T7, LIPID #### [facility] [address] [address] [address] Eusebia Moralez ALT [Catalytic activity/Vol] 19 U/L Normal 14-59 [facility] Comment on above: Performed By: #### T SH, BNP, CMP, T7, LIPID #### [facility] [address] [address] [address] Eusebia Moralez Anion gap [Moles/Vol] 12.3 mmol/L Normal [facility] Comment on above: Performed By: #### T SH, BNP, CMP, T7, LIPID #### [facility] [address] [address] [address] Eusebia Moralez AST [Catalytic activity/Vol] 12 U/L Critically low 15-37 [facility] Comment on above: Performed By: #### T SH, BNP, CMP, T7, LIPID #### [facility] [address] [address] [address] Eusebia Moralez Bilirubin [Mass/Vol] 0.4 mg/dL Normal 0.2-1.0 [facility] Comment on above: Performed By: #### T SH, BNP, CMP, T7, LIPID #### [facility] [address] [place] [address] Dr. Eusebia Moralez Calcium [Mass/Vol] 8.9 mg/dL Normal 8.5-10.1 [facility] Comment on above: Performed By: #### T SH, BNP, CMP, T7, LIPID #### [facility] [address] [place] [address] Dr. Eusebia Moralez Chloride [Moles/Vol] 106 mmol/L Normal 98-107 [facility] Comment on above: Performed By: #### T SH, BNP, CMP, T7, LIPID #### [facility] [address] [place] [address] Dr. Eusebia Moralez CO2 [Moles/Vol] 27.4 mmol/L Normal 21.0-32.0 [facility] Comment on above: Performed By: #### T SH, BNP, CMP, T7, LIPID #### [facility] [address] [address] [address] Eusebia Moralez Creatinine [Mass/Vol] 1.51 mg/dL Critically high 0.55-1.02 [facility] Comment on above: Performed By: #### T SH, BNP, CMP, T7, LIPID #### [facility] [address] [place] [address] Dr. Eusebia Moralez EGFR-AF SWEDISH 41 mL/min/1.73m2 Critically low >=60 [facility] Comment on above: Performed By: #### T SH, BNP, CMP, T7, LIPID #### [facility] [address] [place] [address] Dr. Eusebia Moralez EGFR-NON AF SWEDISH 34 mL/min/1.73m2 Critically low >=60 [facility] Comment on above: Performed By: #### T SH, BNP, CMP, T7, LIPID #### [facility] [address] [address] [address] Eusebia Moralez Globulin (S) [Mass/Vol] 3.5 g/dL Normal [facility] Comment on above: Performed By: #### T SH, BNP, CMP, T7, LIPID #### [facility] [address] [address] [address] Eusebia Moralez Glucose [Mass/Vol] 129 mg/dL Critically high 74-106 [facility] Comment on above: Performed By: #### T SH, BNP, CMP, T7, LIPID #### [facility] [address] [place] [address] Dr. Eusebia Moralez Potassium [Moles/Vol] 4.7 mmol/L Normal 3.5-5.1 [facility] Comment on above: Performed By: #### T SH, BNP, CMP, T7, LIPID #### [facility] [address] [address] [address] Eusebia Moralez Protein [Mass/Vol] 6.8 g/dL Normal 6.4-8.2 [facility] Comment on above: Performed By: #### T SH, BNP, CMP, T7, LIPID #### [facility] [address] [place] [address] Dr. Eusebia Moralez Sodium [Moles/Vol] 141 mmol/L Normal 136-145 [facility] Comment on above: Performed By: #### T SH, BNP, CMP, T7, LIPID #### [facility] [address] [place] [address] Dr. Eusebia Moralez Urea nitrogen [Mass/Vol] 37.0 mg/dL Critically high 7.0-18.0 [facility] Comment on above: Performed By: #### T SH, BNP, CMP, T7, LIPID #### [facility] [address] [place] [address] Dr. Eusebia Moralez Urea nitrogen/Creatinin e [Mass ratio] 24.5 mg/mg Normal [facility] Comment on above: Performed By: #### T SH, BNP, CMP, T7, LIPID #### [facility] Laboratory [address] [place], [place] [address] Dr. Eusebia Moralez TSHon 01-14-2022 TSH 0.068 uIU/mL Critically low 0.358-3.740 [facility] Comment on above: Performed By: #### T SH, BNP, CMP, T7, LIPID ####[facility] [address] [place], [place] [address]Lw. Eusebia Moralez Covid-19 PCR (CVDTBH)on 10-13 SARS-CoV-2 (COVID-19) RNA DEREK+probe Ql (Unsp spec) Not detected Normal NOT DETECTED [facility] Comment on above: Result Comment: This test is not yet approved or cleared by the [place] FDA. When there are no FDA-approved or cleared tests available, and other criteria are met, FDA can make tests available under an emergency access mechanism called an Emergency Use Authorization (EUA). The EUA for this test is supported by the [place] of Health and Human Service's (HHS's) declaration [...] consistent with SARS-CoV-2. Performed By: #### C VDTBH ####[facility] [address] [place] [id number] Moralez MRI LSPINE WO CONon 10-11-19 MRI [...] by: AMBAR MAYA Date: 2021-10-10 07:29 Normal [facility] Pulmonary Progress Noteo n 09-13-2020 [facility] Pulmonary Progress Note [facility] Pt Name: VERO SADLER [address] [place] [address] MR#: [id number] [place] [id number] ACCT: [id number] PROGRESS NOTE- Pulmonary : [facility] Date of Service: 09/13/20 Text NAME: VERO SADLER MR#: [id number] DATE OF SERVICE: 09/13/2020 OUTPATIENT PULMONARY PROGRESS [...] disease, severity unknown. We will try to [facility] Pt Name: VERO SADLER [address] [place] [address] MR#: [id number] [place] [id number] ACCT: [id number] PROGRESS NOTE- Pulmonary : [facility] [...] postoperative management if needed. TIM TOSCANO MD DI/MODL/[id number] CC: Dr. Rito Guerrero MD eSign Date and Time Tim Toscano MD Signature on File 09/26/20 1046 Normal [facility] GLYCO HEMOon 08-23-2020 HbA1c (Bld) [Mass fraction] 5.3 % Normal [facility] Comment on above: Result Comment: Milagro vidal Diagnosis HbA1c (%) --------- Diabetic > 6.4 Prediabetes 5.7-6.4 Normal < 5.7 Performed By: #### L 500.56777 #### Test performed at: [place] [address] CBC W/DIFFon 08-22-2020 BASO ABS 0.0 K/uL Normal 0.0-0.2 [facility] Comment on above: Performed By: #### L 200.02612 #### Test performed at: [address] [address] Basophils/100 WBC (Bld) 0.5 % Normal [facility] Comment on above: Performed By: #### L 200.36469 #### Test performed at: [address] [address] EOS ABS 0.1 K/uL Normal 0.0-0.5 [facility] Comment on above: Performed By: #### L 200.67772 #### Test performed at: [address] [address] Eosinophils/100 WBC (Bld) 1.2 % Normal [facility] Comment on above: Performed By: #### L 200.05981 #### Test performed at: [place] [address] Erythrocyte distribution width (RBC) [Ratio] 12.8 % Normal 11.5-14.5 [facility] Comment on above: Performed By: #### L 200.59472 #### Test performed at: [place] [address] Hematocrit (Bld) [Volume fraction] 40.1 % Normal 36.0-48.0 [facility] Comment on above: Performed By: #### L 200.18623 #### Test performed at: [place] [address] Hemoglobin (Bld) [Mass/Vol] 12.4 g/dL Normal 12.0-15.0 [facility] Comment on above: Performed By: #### L 200.28015 #### Test performed at: [place] [address] IG % 0.3 % Normal [facility] Comment on above: Performed By: #### L 200.25512 #### Test performed at: [place] [address] IG ABS 0.02 K/uL Normal 0-0.05 [facility] Comment on above: Performed By: #### L 200.28713 #### Test performed at: [place] [id number] Lymphocytes (Bld) [#/Vol] 1.3 10*3/uL Normal 1.2-3.5 [facility] Comment on above: Performed By: #### L 200.73197 #### Test performed at: [address] [address] Lymphocytes/100 WBC (Bld) 16.9 % Normal [facility] Comment on above: Performed By: #### L 200.23040 #### Test performed at: [address] [address] MCH (RBC) [Entitic mass] 29.0 pg Normal 25.4-34.6 [facility] Comment on above: Performed By: #### L 200.95487 #### Test performed at: [address] [address] MCHC (RBC) [Mass/Vol] 30.9 g/dL Low 31.5-36.5 [facility] Comment on above: Performed By: #### L 200.87397 #### Test performed at: [address] [address] MCV (RBC) [Entitic vol] 93.7 fL Normal 79.0-98.0 [facility] Comment on above: Performed By: #### L 200.25524 #### Test performed at: [address] [address] MONO ABS 0.8 K/uL Normal 0.0-1.0 [facility] Comment on above: Performed By: #### L 200.34196 #### Test performed at: [address] [address] Monocytes/100 WBC (Bld) 9.7 % Normal [facility] Comment on above: Performed By: #### L 200.34986 #### Test performed at: [address] [address] NEUTROPHIL ABS 5.5 K/uL Normal 1.4-6.6 [facility] Comment on above: Performed By: #### L 200.77359 #### Test performed at: [address] [address] Neutrophils/100 WBC (Bld) 71.4 % Normal [facility] Comment on above: Performed By: #### L 200.89732 #### Test performed at: [address] [address] NRBC # 0.000 K/uL Normal 0-0.012 [facility] Comment on above: Performed By: #### L 200.03312 #### Test performed at: [address] [address] NRBC % 0.0 /100 WBC Normal 0-0.2 [facility] Comment on above: Performed By: #### L 200.47015 #### Test performed at: [address] [address] Platelet mean volume (Bld) [Entitic vol] 10.1 fL Normal 8.7-12.4 [facility] Comment on above: Performed By: #### L 200.75111 #### Test performed at: [address] [address] Platelets (Bld) [#/Vol] 236 10*3/uL Normal 140-440 [facility] Comment on above: Performed By: #### L 200.38309 #### Test performed at: [address] [address] RBC (Bld) [#/Vol] 4.28 10*6/uL Normal 3.5-5.5 [facility] Comment on above: Performed By: #### L 200.85677 #### Test performed at: [address] [address] WBC (Bld) [#/Vol] 7.7 10*3/uL Normal 3.9-11.0 [facility] Comment on above: Performed By: #### L 200.23523 #### Test performed at: [address] [address] CHEST PA/AP & LATERAL OR 2 V WSon 08-22-2020 CHEST PA/AP & LATERAL OR 2 VWS STUDY: CHEST PA/AP LATERAL OR 2 VWS; 08/22/2020 2:35 pm INDICATION: COPD. COMPARISON: None. ACCESSION NUMBER(S): [id number] ORDERING CLINICIAN: Ovidio Baez FINDINGS: The lungs are clear without pleural effusion. Borderline cardiomegaly. Otherwise unremarkable mediastinum, eron, and pulmonary vasculature. Thoracic degenerative changes are present. IMPRESSION: No active disease in the chest. Normal [facility] COMP META PANELon 08-22-2020 Albumin [Mass/Vol] 3.4 g/dL Normal 3.4-5.0 [facility] Comment on above: Performed By: #### L 500.43563, L500.42960, L500.57239 #### Test performed at: [address] [address] ALK PHOS TOTAL 88 U/L Normal 45-117 [facility] Comment on above: Performed By: #### L 500.86065, L500.18202, L500.29044 #### Test performed at: [address] [address] ALT [Catalytic activity/Vol] 17 U/L Normal 13-61 [facility] Comment on above: Performed By: #### L 500.81184, L500.13004, L500.65212 #### Test performed at: [address] [address] AST [Catalytic activity/Vol] 12 U/L Low 15-37 [facility] Comment on above: Performed By: #### L 500.79166, L500.83644, L500.83092 #### Test performed at: [address] [address] BILI TOTAL 0.5 mg/dL Normal 0.2-1.0 [facility] Comment on above: Performed By: #### L 500.77856, L500.02269, L500.12300 #### Test performed at: [address] [address] Calcium [Mass/Vol] 9.0 mg/dL Normal 8.5-10.1 [facility] Comment on above: Performed By: #### L 500.64723, L500.55704, L500.22368 #### Test performed at: [address] [address] Chloride [Moles/Vol] 107 mmol/L Normal 98-107 [facility] Comment on above: Performed By: #### L 500.12349, L500.32252, L500.16042 #### Test performed at: [address] [address] CO2 [Moles/Vol] 29 mmol/L Normal 21-32 [facility] Comment on above: Performed By: #### L 500.56985, L500.33529, L500.08430 #### Test performed at: [address] [address] Creatinine [Mass/Vol] 1.280 mg/dL High 0.550-1.020 [facility] Comment on above: Performed By: #### L 500.11007, L500.95821, L500.41653 #### Test performed at: [address] [address] Glucose [Mass/Vol] 90 mg/dL Normal 70-99 [facility] Comment on above: Result Comment: Fast ing GLUCOSE reference range has been updated per (ADA) [place] Diabetes Association's recommendation. 06/07/2018 Performed By: #### L 500.88561, L500.46178, L500.77072 #### Test performed at: [address] [address] Potassium [Moles/Vol] 4.4 mmol/L Normal 3.5-5.1 [facility] Comment on above: Performed By: #### L 500.15072, L500.89896, L500.80783 #### Test performed at: [address] [address] Protein [Mass/Vol] 6.8 g/dL Normal 6.4-8.2 [facility] Comment on above: Performed By: #### L 500.87967, L500.72134, L500.66320 #### Test performed at: [address] [address] Sodium [Moles/Vol] 142 mmol/L Normal 136-145 [facility] Comment on above: Performed By: #### L 500.04259, L500.90701, L500.96275 #### Test performed at: [address] [address] Urea nitrogen [Mass/Vol] 21 mg/dL High 7-18 [facility] Comment on above: Performed By: #### L 500.83486, L500.72628, L500.71609 #### Test performed at: [address] [address] GFR ESTIMATEon 08-22-2020 IF AMER 50 Low > 60 [facility] Comment on above: Result Comment: eGFR (Estimated GFR) Units of measure:mL/min/1.73 meters sq. *CALCULATION REVISED 01/01/2015;IDMS-traceable MDRD equation eGFR is derived from the reexpressed MDRD Study equation using the following parameters: serum creatinine, age, gender and race. An eGFR<60 mL/min/1.73m2 for >3 months is consistent with chronic kidney disease. Refer to KDOQI guidelines for clinical interpretation. Performed By: #### L 500.18228, L500.46404, L500.02643 #### Test performed at: [place] [address] IF non-AFR AMER 41 Low > 60 [facility] Comment on above: Performed By: #### L 500.05176, L500.75358, L500.27300 #### Test performed at: [place] [address] TSH ULTRA SENSon 08-22-2020 TSH ULTRA SENS < 0.005 Low 0.358-3.74 [facility] Comment on above: Performed By: #### L 500.21582, L500.04474, L500.90261 #### Test performed at: [place] [address] LUMB SP COMP W FLEX/EXT 6 VW Son 07-23-2020 LUMB SP COMP W FLEX/EXT 6 VWS STUDY: LUMB SP COMP W FLEX/EXT 6 VWS ; 07/23/2020 9:01 am INDICATION: PAIN. COMPARISON: None. ACCESSION NUMBER(S): [id number] ORDERING CLINICIAN: Sacha Guerrero FINDINGS: No fracture [...] of the lumbar spine without instability. Normal [facility] Encounters Encounter Date Encounter Type Care Provider Facility Start: 03-26-2023 ambulatory JOSE ANGEL Richardson [facility] Start: 03-23-2023 End: 03-23-2023 ambulatory IRVIN KWOK [facility] Start: 02-16-2023 End: 02-16-2023 ambulatory NATALIA KUHN [facility] Start: 02-09-2023 End: 02-10-2023 ambulatory NATALIA Lazaro [facility]DRESSA [facility] Start: 02-01-2023 End: 02-01-2023 ambulatory [facility] Start: 01-20-2023 End: 01-20-2023 ambulatory CINTIAKAMLA JACOBO [facility] Start: 01-12-2023 End: 01-13-2023 ambulatory [facility] Start: 01-12-2023 End: 01-12-2023 ambulatory [facility] Start: 01-05-2023 End: 01-06-2023 ambulatory NATALIA Lazaro [facility] Start: 01-05-2023 End: 01-05-2023 ambulatory DEBBIE BHATIA [facility] Start: 01-01-2023 End: 01-01-2023 ambulatory COLLETTE HOFFMAN [facility] Start: 12-22-2022 End: 12-22-2022 [facility]: 12-15-2022 End: 12-15-2022 [facility] Start: 12-08-2022 ambulatory JOSE ANGEL Richardson [facility] Start: 12-02-2022 ambulatory Desmond ANDERS Facility :[facility] Start: 11-30-2022 End: 11-30-2022 ambulatory JOSE ANGEL MEEHAN [facility] Start: 11-13-2022 ambulatory Desmond ANDERS Facility:[facility] Start: 11-06-2022 End: 11-06-2022 ambulatory JOSE ANGEL MEEHAN [facility] Start: 10-27-2022 End: 10-27-2022 ambulatory IRVIN KWOK [facility] Start: 10-07-2022 End: 10-08-2022 [facility] Start: 09-24-2022 End: 09-25-2022 ambulatory TIAN [facility] Start: 09-22-2022 ambulatory JOSE ANGEL MEEHAN [facility] Start: 09-08-2022 End: 09-09-2022 ambulatory JOSE ANGEL WHITEI [facility] Start: 09-08-2022 End: 09-08-2022 ambulatory [facility] Start: 08-04-2022 End: 08-04-2022 [facility] Start: 07-28-2022 ambulatory JOSE ANGEL WHITEI [facility] Start: 07-22-2022 End: 07-22-2022 ambulatory [facility] Start: 07-17-2022 End: 07-18-2022 ambulatory IRVIN KWOK Facility:[facility] Start: 07-02-2022 End: 07-03-2022 ambulatory IRVIN KWOK Facility:[facility] Start: 05-25-[address] DEBBIE Garcia Facili ty:[facility] Start: 05-19-2022 ambulatory JOSE ANGELCALLUM MEEHAN [facility] Start: 05-19-2022 End: 05-19-2022 [facility] Start: 05-11-2022 End: 05-12-2022 ambulatory [facility] Start: 05-11-2022 End: 05-11-2022 Patient encounter procedure JOSE ANGEL MEEHAN [facility] Start: 04-24-2022 End: [facility]: 04-24-2022 End: 04-24-2022 [facility] Start: 03-09-2022 End: 03-10-[address] DEBBIE Garcia Facility:[facility] Start: 02-23-2022 End: 02-24-[address] DEBBIE Garcia Facility:[facility] Start: 02-02-2022 End: 02-03-[address] DEBBIE Garcia Facility:[facility] Start: 01-26-2022 End: 01-27-[address] [...] Start: 09-29-2016 End: 09-30-2016 Ambulatory DEFAULT PHYSICIAN Facility:[facility] Payers Date Payer Category Payer Medicare [id number] 1958 Medicare [id number] 1958 Unknown [id number] 1950 Unknown [id number] 2.16.84 [id number] 1950 Unknown [id number] 2.16.84 0.1.785945.3.579.2.593 1950 Unknown [id number] 2.16.84 0.1.320307.3.579.2.593 1950 Unknown [id number] 2.16.84 0.1.895645.3.579.2.593 1951 Unknown [id number] 2.16.84 0.1.430779.3.579.2.593 1950 Unknown [id number] 2.16.84 0.1.050076.3.579.2.593 1951 Unknown [id number] 2.16.84 0.1.726816.3.579.2.593 1951 Unknown [id number] 2.16.84 0.1.196664.3.579.2.593 1951 Unknown [id number] 2.16.84 0.1.182259.3.579.2.593 1951 Unknown [id number] 2.16.84 0.1.020509.3.579.2.593 1951 Unknown [id number] 2.16.84 0.1.359725.3.579.2.593 1951 Unknown [id number] 2.16.84 0.1.709868.3.579.2.593 1951 Unknown [id number] 2.16.84 0.1.125435.3.579.2.593 1951 Unknown [id number] 2.16.84 0.1.949261.3.579.2.593 1950 Unknown [id number] 2.16.8 40.1.234623.3.579.2.727 Unknown Clinical Notes 04-24-2022 to 03-26-2023 Note Date & Type Note Facility 03-26-2023 Note [facility] Interventional Pain Management SUBJECTIVE: Subjective 03/26/23 CC: [...] since last visit 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 patient reports that overall she [...] further. She was able to walk around [employer] store which she previously was not able [...] dispo (more content not included)... [facility] 03-23-2023 Note [place] Cardiology Consul t Note Reason for visit: [...] kidney disease COPD (chronic obstructive pulmonary disease) ([facility]/HCC) Hypertension Myocardial infarction (CMS/HCC) Obstructive sleep apnea 10/02/2022 SOBIA=17.7 events/hour; Pranav SaO2=76%; Fhnkjq=195.0 lbs; BMI=52.7 kg/m2, Home Sleep Apnea Testing on 09/25/2022 at [facility] PSH: Past Surgical History: Procedure [...] Prio (more content not included)... [facility] 02-16-2023 Note [facility] Gastroenterolog y Follow-Up Patient Visit CHIEF COMPLAINT [...] 1 year. Stool studies were submitted to [facility], no results available. Ongoing altered BMs, however [...] with abdominal pain, bloating, and diarrhea. Sedation: [facility] Attending Physician: Dr. Dario Alarcon Accounts Receivable Administrator: Nancy Prado, Fellow Procedure Details: Informed consent [...] and Crohn's disease in her mother. Sedation: [facility] Attending Physician: Dr. Dario Alarcon Findings: Poor colon prep. The examined terminal [...] hemorrhoid (more content not included)... [facility] 02-09-2023 Note Patient: Vero boudreaux Procedure Summary Date: 02/09/23 Room / Location: [facility] Endoscopy Anesthesia Start: 1336 Anesthesia Stop: 1425 Procedures: DIAGNOSTIC COLONOSCOPY EGD Diagnosis: Abdominal pain, unspecified abdominal location Change in bowel habits Chronic diarrhea Family history of colon cancer in father Family history of rectal cancer Family history of Crohn's disease Gastroesophageal reflux disease, unspecified whether esophagitis present Scheduled Providers: Dario Alarcon MD; Abel Downing MD Responsible Provider: Abel [...] notable events for this encounter. [facility] 02-09-2023 Note Patient: Vero boudreaux Procedure Summary Date: 02/09/23 Room / Location: [facility] Endoscopy Anesthesia Start: 1335 Anesthesia Stop: Procedures: DIAGNOSTIC COLONOSCOPY EGD Diagnosis: Abdominal pain, unspecified abdominal location Change in bowel habits Chronic diarrhea Family history of colon cancer in father Family history of rectal cancer Family history of Crohn's disease Gastroesophageal reflux disease, unspecified whether esophagitis present Scheduled Providers: Dario Alarcon MD; Abel Downing MD Responsible Provider: Abel Downing MD Anesthesia Type: MAC ASA Status: 3 Anesthesia Post Transport [facility] room air Patient Monitor: direct observation Transport: uneventful Patient condition is: stable [facility] 02-09-2023 Note Patient: Vero boudreaux Procedure Information Date/Time: 02/09/23 1100 Scheduled providers: Dario Alarcon MD; Abel Downing MD Procedures: DIAGNOSTIC COLONOSCOPY EGD Location: [facility] Invasive Surgery [place] [facility] Relevant Problems Anesthesia (+) KATIE on [...] with resident. 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 Do not wear perfume, make-up, nail fijian, or lotions on the day of your surgery or procedure. Follow skin-prep/wipe instructions as below if required. Bring with you: *Insurance card *Photo ID *Medication list *Co-pay for visit/prescriptions If applicable: *Rescue inhalers *Green bracelet from lab *CPAP or BiPAP machine, if staying overnight *Any braces, splints, or equipment ordered preoperatively *Remote controls for implanted devices Leave at home: *Purse/Wallet/[place]- unless needed for co-pay *Cell phone (can [...] need to make any changes, please call [phone]. Notify your surgeon if you develop any illness such as a cold, cough, fever, sore throat or vomiting between now and your surgery. Thank you for entrusting us with your care. [facility] Surgical Services Team [facility] 01-20-2023 Note Cardiovascular Medic ine [facility] SUBJECTIVE Chief Complaint Patient presents with Dizziness Wound Check Vero Sadler is a 72 y.o. 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) Past Medical History: Diagnosis Date Abnormal ECG Arthritis Chronic kidney disease COPD (chronic obstructive pulmonary disease) ([facility]/HCC) Hypertension Myocardial infarction ([facility]) Obstructive sleep apnea 10/02/2022 SOBIA=17.7 events/hour; Pranav SaO2=76%; Umimug=633.0 lbs; BMI=52.7 kg/m2, Home Sleep Apnea Testing on 09/25/2022 at [facility] Family History Problem Relation Name Age of [...] in the morning., Disp: , Rfl: omega 5-lhv-elf-fish oil 350 mg-235 mg- 90 mg-597 mg capsule,delayed release(DR/EC), Take 1 capsule by mouth in the morning., Disp: , Rfl: revefenacin (Yupelri) 175 mcg/3 mL nebu (more content not included)... [facility] 01-20-2023 Note Patient here for wou nd check s/p PPM placement on 01/[address] Bullock. She presented to [facility] ED yesterday for near-syncope. Said BP was high this morning when she was discharged from the hospital. Chest pressure and palpitations have resolved since getting device. Valdez from [employer] was contacted regarding home monitor. He states [...] systems reviewed and are negative. [facility] 01-12-2023 Note Indications for perm anent pacemaker [...] silk suture. They were connected to a [employer] dual-chamber pacemaker pulse generator. This was placed [...] of the upper extremity Jennifer Bullock M.D. [facility] press supervisor and Pediatrics Director: Cardiac Electrophysiology Program [facility] 01-12-2023 Note Patient: Vero boudreaux Procedure Information Date/Time: 01/12/23829 Procedure: Implant PPM - Tachy Newton syndrome, NSVT, symptomatic bradycardia Location: [facility] STOCK LAYER 1 / [facility] HVC VASCULAR LAB (Cath) Providers: Jennifer Bullock MD [...] patient who. Additional Equipment Requests [facility] 01-05-2023 Note [facility] Gastroenterolog y New Patient Visit - History [...] Past CLN ~ 3-4 year ago at [facility] in [place]. No records available. Reports history of polyps and h/o rectal cancer in her mother and colon cancer in her father. HISTORY: Problem list: Patient Active Problem List Diagnosis Chest pain Dyspnea Edema Essential hypertension Fatigue Lightheadedness Spinal stenosis of lumbar region with neurogenic claudication Lower abdominal pain Spondylosis of lumbosacral region without myelopathy or radiculopathy A-fib (CMS/HCC) Clinical trial exam [place] (ventricular tachycardia) (CMS/HCC) Obstructive sleep apnea Nonsustained paroxysmal ventricular tachycardia (CMS/HCC) Other secondary pulmonary hypertension (CMS/HCC) KATIE on CPAP Symptomatic bradycardia 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CMS/HCC) Past Medical History: Past Medical History: Diagnosis Date Abnormal ECG Arthritis Chronic kidney disease COPD (chronic obstructive pulmonary disease) (CMS/HCC) Hypertension Myocardial infarction (CMS/HCC) Obstructive sleep apnea 10/02/2022 SOBIA=17.7 events/hour; Pranav SaO2=76%; Xexinn=774.0 lbs; BMI=52.7 kg/m2, Home Sleep Apnea Testing on 09/25/2022 at [facility] Past Surgical History: Past Surgical History: Procedure [...] m (more content not included)... [facility] 01-05-2023 Note D/W Dr Kwok - MARY JO lyman nd he agrees that pt would benefit [...] medications/ or contrast, stroke, . [facility] 01-01-2023 Note Continue coreg 6.25 mg bid [facility] 01-01-2023 Note Pt with noted bradyc ardia [...] She voiced understanding and agreement [facility] 01-01-2023 Note Patient here c/o bra dycardia [...] systems reviewed and are negative. [facility] 01-01-2023 Note [facility] CARDIOLOGY PROGR ESS NOTE [...] mg by mouth in the morning. omega 8-dts-ynp-fish oil 350 mg-235 mg- 90 mg-597 mg [...] lowe (more content not included)... [facility] 12-22-2022 Note [facility] Interventional Pain Management SUBJECTIVE: Subjective 12/22/22 CC: [...] since last visit 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 patient reports that overall she [...] further. She was able to walk around [employer] which she previously was not able to [...] havi (more content not included)... [facility] 12-15-2022 Note Division of Nephrolo gy Vero [...] was recently taken off spironolactone by her oceanologist. She is on po bumex daily. For [...] kidney disease COPD (chronic obstructive pulmonary disease) ([facility]) Hypertension Myocardial infarction ([facility]) Obstructive sleep apnea 10/02/2022 SOBIA=17.7 events/hour; Pranav SaO2=76%; Oefsod=920.0 lbs; BMI=52.7 kg/m2, Home Sleep Apnea Testing on 09/25/2022 at [facility] Family History Problem Relation Name Age of [...] morning. mometasone (Elocon) 0.1 % cream omega 3-xit-inj-fish oil 350 mg-235 mg- 90 mg-597 mg [...] f (more content not included)... [facility] 12-08-2022 Note [facility] Interventional Pain Management SUBJECTIVE: Subjective 12/08/22 CC: [...] since last visit 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 patient reports that overall she [...] further. She was able to walk around [employer] which she previously was not able [...] ret (more content not included)... [facility] 11-30-2022 Note No concerns as per call back josefa delines [facility] 11-30-2022 Note Patient: Vero boudreaux Procedure Summary Date: 11/30/22 Room / Location: [facility] OPERATING ROOM 02 / [facility] Operating Room Anesthesia Start: 742 Anesthesia Stop: [...] protocol. No notable events documented. [facility] 11-30-2022 Note Patient: Vero boudreaux Procedure Information Date/Time: 11/30/22 0730 Procedure: L3-L5 SPINE DECOMPRESSION , USING VERTIFLEX SUPERION INTERSPINOUS SPACER (Spine Lumbar) - C-ARM, [employer], FIRST CASE, REP NOTIFIED 11/18 J Location: [facility] OPERATING ROOM 02 / [facility] Operating Room Surgeons: Jose Angel Meehan MD [...] with attending. 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 Do not wear perfume, make-up, nail fijian, or lotions on the day of your [...] need to make any changes, please call [phone]. Notify your surgeon if you develop any illness such as a cold, cough, fever, sore throat or vomiting between now and your surgery. Thank you for entrusting us with your care. [facility] Surgical Services Team [facility] 11-06-2022 Note [facility] Interventional Pain Management SUBJECTIVE: Subjective 11/06/22 CC: [...] since last visit 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 patient reports that overall she [...] further. She was able to walk around [employer] store which she previously was not able [...] progressively (more content not included)... [facility] 10-27-2022 Note [place] Cardiology Consul t Note Reason for visit: [...] kidney disease COPD (chronic obstructive pulmonary disease) ([facility]) Hypertension Myocardial infarction ([facility]) Obstructive sleep apnea 10/02/2022 SOBIA=17.7 events/hour; Pranav SaO2=76%; Cszjck=141.0 lbs; BMI=52.7 kg/m2, Home Sleep Apnea Testing on 09/25/2022 at [facility] PSH: Past Surgical History: Procedure Laterality Date [...] (Mev (more content not included)... [facility] 10-08-2022 Note Subjective s/p RT TF TRACEY L4/5 Patient reports Pain Level 2. Pre-procedure pain level 5 on 10/07/22. Denies complications, side effects, problems, or any questions about discharge instruction. Next appointment on 11/06/22 at 0845. [facility] 09-24-2022 Note Pt given verbal and written instructions and demo of HSAT use. Pt to return unit to registration 09/25 [facility] 09-22-2022 Note [facility] Interventional Pain Management SUBJECTIVE: Subjective 09/22/22 CC: [...] since last visit 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 patient reports that overall she [...] further. She was able to walk around [employer] which she previously was not able to [...] walking (more content not included)... [facility] 09-08-2022 Note Division of Nephrolo gy Vero Sadler [...] was recently taken off spironolactone by her oceanologist. She is on po bumex daily. For [...] mg by mouth in the morning. omega 0-pnr-grt-fish oil 350 mg-235 mg- 90 mg-597 mg [...] medications for this visit. Physical examination: Vitals: 06/27/23 0836 BP: 179/76 BP Location: Left arm [...] i (more content not included)... [facility] 08-04-2022 Note [facility] Cardiology Clinic Note Chief Complaint: Patient is [...] in the morning., Disp: , Rfl: omega 0-dyo-rye-fish oil 350 mg-235 mg- 90 mg-597 mg [...] st (more content not included)... [facility] 07-28-2022 Note [facility] Interventional Pain Management SUBJECTIVE: Subjective 07/28/22 CC: [...] since last visit 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 patient reports that overall she [...] further. She was able to walk around [employer] store which she previously was not able [...] of PT, pain management, Dr. Oleary at [facility], in past. Has had 3 injections, including radiofrequency ablation, with minimal relief Trialed medications: diclofenac Procedures performed previously: lumbar MBB/RFA 11/21/21 - interlaminar lumbar epidural at L4-5 over 80% relief of radicular symptoms, and 50% relief of low back pain 02/18/22 - bilateral lumbar medial branch block L3-4 and L4-5 80% rel (more content not included)... [facility] 07-22-2022 Note COMPREHENSIVE EP FANNY DY PROCEDURE NOTE DATE OF PROCEDURE: 07/22/2021 PERFORMING PHYSICIAN: Dr. Irvin Kwok ASSISTANT ASSOCIATE FULL PROFESSOR: None INDICATIONS FOR PROCEDURE: 1. History of [...] follows. RFV: 5Fx2 RV CRD2 to His: [place] Quad/[place], CRD2 Once catheter was in position, baseline intervals were noted as below. Baseline right ventricular programmed stimulation showed evidence of VA conduction. I performed VEST using 600ms and 400ms drive train. Singles, doubles and triple extra stimuli was introduced with no evidence of any ventricular tachycardia from RV apex as well as Rv inflow. EP study was performed from prox CS. No tachycardia could be induced. The patient [...] Irvin Kwok MD Cardiac Electrophysiology [facility] 07-22-2022 Note Patient: Vero boudreaux Procedure Information Date/Time: 07/22/22 1230 Procedure: Electrophysiology procedure Location: [facility] STOCK LAYER 1 EP / [facility] VASCULAR LAB (Cath) Providers: Irvin Kwok MD Clinical information reviewed: Allergies Meds OB Status Physical Exam Airway Mallampati: II TM distance: >3 FB Neck ROM: full Cardiovascular Dental Pulmonary Abdominal Anesthesia Plan ASA 2 CSE Anesthetic plan and risks discussed with patient. Use of blood products discussed with patient who. Additional Equipment Requests [facility] 07-14-2022 Note gian [place] 05-19-2022 Note [facility] Interventional Pain Management SUBJECTIVE: Subjective 05/19/22 CC: No chief complaint on file. This is a 72-year-old female presenting to follow-up mild L3-4 and L4-5. Overall patient is reporting 50% improvement in back pain. She reports being able to stand longer and walk further. She was able to walk around [employer] which she previously was not able to [...] of PT, pain management, Dr. Oleary at [facility], in past. Has had 3 injections, [...] Arrhy (more content not included)... [facility] 05-19-2022 Note Division of Nephrolo gy Vero [...] was recently taken off spironolactone by her oceanologist. She is on po bumex daily. For [...] by oral route for 90 days. omega 1-ymg-pyw-fish oil 350 mg-235 mg- 90 mg-597 mg capsule,delayed release(DR/EC) Take 1 capsule by mouth in the morning. revefenacin (Yupelri) 175 mcg/3 mL nebulizer solution Take 175 mcg by nebulization in the morning. rutin/hesp/bioflav/C/[id number] (BIOFLEX ORAL) Take 1 tablet by mouth [...] TAYLOR (more content not included)... [facility] 05-11-2022 Note No concerns as per call back josefa delines [facility] 05-11-2022 Note Patient: Vero boudreaux Procedure Summary Date: 05/11/22 Room / Location: [facility] OPERATING ROOM 05 / [facility] Operating Room Anesthesia Start: 727 Anesthesia Stop: [...] acceptable No notable events documented. [facility] 05-11-2022 Note Patient: Vero boudreaux Procedure Information Anesthesia Start Date/Time: 05/11/22727 Procedure: L3-L4 and L4-L5 MILD Procedure - C-ARM, [employer] REP NOTIFIED 04/28 JK Location: [facility] OPERATING ROOM 05 / [facility] Operating Room Surgeons: Jose Angel Meehan MD [...] with attending. Additional Equipment Requests [facility] 05-11-2022 Note Patient: Vero boudreaux Procedure Summary Date: 05/11/22 Room / Location: [facility] OPERATING ROOM 05 / [facility] Operating Room Anesthesia Start: 727 Anesthesia Stop: Procedure: L3-L4 and L4-L5 MILD [...] uneventful Patient condition is: stable [facility] 05-11-2022 Note L3-L4 and L4-L5 MILD Procedure Operative Note Date: 05/11/2022 Location: [facility] OR Name: Vero Sadler, : 1950, Diagnosis Pre-op Diagnosis * Spinal stenosis of lumbar region with neurogenic claudication [M48.062] * Clinical trial exam [Z00.6] Post-op Diagnosis * Spinal stenosis of lumbar region with neurogenic claudication [M48.062] * Clinical trial exam [Z00.6] Procedures L3-L4 and L4-L5 MILD Procedure 0275T - MA PERC LAMINO-/LAMINECTOMY INDIR IMAG GUIDE LUMBAR Surgeons * Jose Angel Meehan - Primary Procedure Summary Anesthesia: Monitor Anesthesia Care ASA: ASA status not filed in the log. Estimated Blood Loss: None Total IV Fluids: see anesthesia record mL Drains: * None in log * Staff: Pmo Manager: Nancy Sanders RN Scrub Person: Abby Decker [...] Disposi (more content not included)... [facility] 04-24-2022 Note [place] Cardiology Consul t Note Reason for visit: [...] Diagnosis Date COPD (chronic obstructive pulmonary disease) ([facility]) Hypertension PSH: Past Surgical History: Procedure Laterality [...] by oral route for 90 days. omega 8-gjv-xsr-fish oil 350 mg-235 mg- 90 mg-597 mg [...] an (more content not included)... [facility] 04-24-2022 Note ` [place] Summary Purpose Family History No Family History Records FoundNo Family History Records FoundNo Family History Records FoundNo Family History Records FoundNo Family History Records Found Advance Directives No Advanced Directives Records FoundNo Advanced Directives Records FoundNo Advanced Directives Records FoundNo Advanced Directives Records FoundNo Advanced Directives Records Found Additional Source Comments INFORMATION SOURCE (unrecogn ized section and content) DATE CREATED AUTHOR 09/08/2017 [facility] DATE CREATED AUTHOR AUTHOR'S ORGANIZ ATION 09/27/2020 [facility] DATE CREATED AUTHOR AUTHOR'S ORGANIZ ATION 07/24/2022 [facility] DATE CREATED AUTHOR AUTHOR'S ORGANIZ ATION 11/21/2022 [facility] DATE CREATED AUTHOR AUTHOR'S ORGANIZ ATION 04/23/2023 [place] FOR RECORDS PERTAINING TO PATIENTS WHO ARE [...] BE BASED ON THE PRIMARY CLINICAL RECORDS. [employer] provides no warranty or guarantee of the accuracy or completeness of information in this document.
== END 2023-04-28 09:37 | disposition home or self-care (01) ==
LOC: US 09:36
PROVIDERS: PCP Family Medicine; Visit Provider Family Medicine
DX: N18.30 Chronic kidney disease, stage 3 unspecified (principal); R19.7 Diarrhea, unspecified
CPT/HCPCS: 76705; 76770

== ENCOUNTER 2023-09-06 09:44 | Outpatient (OUT) | payer MEDICARE, SELFPAY ==
--- NOTE | 2023-09-06 09:48 | CT_ITS ---
[address] [address] Patient Name: JUSTIN COLLINS MRN: [id number] date: 1950 Sex: F Assigned Patient Location: CT Current Patient Location: CT Accession/Order Number: [id number] Exam Date: 09/06/2023 10:16 Report Date: 09/06/2023 10:43 At the request of: AMANDA KELLOGG Procedure: CT lung screening low-dose EXAMINATION: CT lung screening low-dose HISTORY: Personal history of certain other disease COMPARISON: 02/23/2022 TECHNIQUE: Axial, Coronal, and Sagittal images were created without the administration of IV contrast material. Dose reduction techniques were achieved by using automated exposure control and/or adjustment of mA and/or kV according to patient size and/or use of iterative reconstruction technique. FINDINGS: LUNGS: Scattered subcentimeter noncalcified pulmonary nodules mostly stable. New semisolid 4.6 mm medial aspect of the right upper lobe axial image #29 PLEURA: No mass, effusion, or pneumothorax. VASCULATURE: No abnormality. SARAH: No mass or pathologic adenopathy. MEDIASTINUM: No mass or pathologic adenopathy. CARDIAC: No enlargement or pericardial effusion. Pacemaker wires CORONARY ARTERIES: Coronary calcifications are mild. AORTA: No aortic aneurysm. Mild calcific atherosclerosis CHEST WALL: No mass or axillary adenopathy BONES: No bone lesion or fracture. LIMITED ABDOMEN: No suspicious findings. Limited images of the upper abdomen. OTHER: Negative. CT/CT lung screening low-dose IMPRESSION: LUNG SCREENING: Lung-RADS Category 2- Benign Appearance or Behavior. Nodules with a very low likelihood of becoming a clinically active cancer due to size or lack of growth. 2. Continue annual screening with LDCT in 12 months. Electronically authenticated by: RAJI HARRISON Date: 09/06/2023 10:43
--- OUTSIDE RECORDS SUMMARY | 2023-09-06 10:01 | XMS_ITS | CCD ---
Author Organization [facility] Care Team Providers Care Poacher Operator Name Role Phone PHYSICIAN, DEFAULT Unavailable Unavailable PHYSICIAN, DEFAULT Unavailable Unavailable DEBBIE BHATIA Unavailable Unavailable JOEYY ., DR LEWIS Consulting Unavailable HOY ., DR LEWIS Attending Unavailable HOY ., DR LEWIS Primary Care Unavailable HOY ., DR LEWIS Admitting Unavailable DAMASCUS, DR RAJI Odonnell Consulting Unavailable HOY ., DR LEWIS Consulting Unavailable HOY ., DR LEWIS Attending Unavailable HOY ., DR LEWIS Primary Care Unavailable HOY ., DR LEWIS Admitting Unavailable HOY ., DR LEWIS Primary Care Unavailable HOY ., DR LEWIS Consulting Unavailable CAPO HURTADO Admitting Unavailable CAPO HURTADO Attending Unavailable HOY ., DR LEWIS Primary Care Unavailable Ambar Maya Consulting Unavailable CAPO HURTADO Attending Unavailable JAMES HURTADOSON Admitting Unavailable CAPO HURTADO Consulting Unavailable IRVIN KWOK Admitting Unavailable HOLula .DR LEWIS Primary Care Unavailable IRVIN KWOK Consulting Unavailable IRVIN KWOK Attending Unavailable IRVIN KWOK Consulting Unavailable SRIRAM .DR LEWIS Primary Care Unavailable IRVIN KWOK Attending Unavailable IRVIN KWOK Admitting Unavailable HOLula .DR LEWIS Primary Care Unavailable SAMSA ., AMANDA Attending Unavailable SAMSA ., AMANDA Admitting Unavailable SAMSA ., AMANDA Consulting Unavailable SRIRAM .DR LEWIS Primary Care Unavailable JULIANNE .EUN Admitting Unavailable JULIANNE .EUN Attending Unavailable LITO .SOMMER Consulting Unavailable SRIRAM ., DR LEWIS Primary Care Unavailable MISC, DR LOPEZ Admitting Unavailable MISC, DR LOPEZ Attending Unavailable SRIRAM .DR LEWIS Primary Care Unavailable SAMSA ., AMANDA Attending Unavailable SAMSA ., AMANDA Admitting Unavailable Ambar Maya Consulting Unavailable SAMSA ., AMANDA Consulting Unavailable HOLula ., DR LEWIS Primary Care Unavailable ELTAHAWY, [...] Unavailable HOY ., DR LEWIS Admitting Unavailable DAMASCUS, DR RAJI Odonnell Consulting Unavailable Desmond ANDERS Attending Unavailable JOSE ANGEL MEEHAN Attending Unavailable JOSE ANGEL MEEHAN Attending Unavailable MALEBENNIEANTNATALIA Referring Unavaila ble JOSE ANGEL MEEHAN Referring Unavailable KARLA, JENNIFER Referring Unavailable ELTAHAWY, EHAB Attending Unavailable AKRAWI, PALMIRAR Attending Unavailable KARLA, JENNIFER Attending Unavailable KARLA, JENNIFER Admitting Unavailable MALENFANTNATALIA Referring Unavaila ble NAWRASDARIO Attending Unavailable JOSE ANGEL MEEHAN Referring Unavailable JOSE ANGEL MEEHAN Referring Unavailable SHEFALIJOSE ANGEL MORGAN Attending Unavailable JOSE ANGEL MEEHAN Referring Unavailable AKRAWI, PALMIRAR Attending Unavailable IRVIN KWOK Attending Unavailable JOSE ANGEL MEEHAN Referring Unavailable AKACOSTA, PALMIRAR Attending Unavailable JOSE ANGEL MEEHAN Attending Unavailable IRVIN KWOK Referring Unavailable IRVIN KWOK Attending Unavailable IRVIN KWOK Attending Unavailable IRVIN KWOK Admitting Unavailable SHEFALIJOSE ANGEL MORGAN Attending Unavailable JOSE ANGEL MEEHAN Admitting Unavailable HOY, DEBBIE Referring Unavailable MALENFANTNATALIA Attending Unavaila ble KARLA, JENNIFER Referring Unavailable JOSE ANGEL MEEHAN Referring Unavailable SHEFALIJOSE ANGEL MORGAN Attending Unavailable JOSE ANGEL MEEHAN Referring Unavailable AKRAWI, PALMIRAR Referring Unavailable DALTONDAVIDCOLLETTE Attending Unavailable JOSE ANGEL MEEHAN Attending Unavailable JOSE ANGEL MEEHAN Attending Unavailable JOSE ANGEL MEEHAN Attending Unavailable MALEBENNIEANTNATALIA Attending UnavailIRVIN aPntoja Referring Unavailable JENNIFER BULLOCK Referring Unavailable JOSE ANGEL MEEHAN Attending Unavailable CINTIA JACOBO Attending Unavailable Allergies Allergy Classification Reported Allergen(s) Allergy Type Date of Onset Reaction(s) Facility (4 sources) Penicillins; Translations: [PENICILLINS] Drug allergy (disorder) [facility] Problems Active Problems Problem Classification Problem Date Documented Date Episodic/Chronic Cardiac dysrhythmias (8 sources) Supraventricular tachycardia; Translations: [Sick sinus syndrome] Onset: 07-17-2022 Chronic Chronic kidney disease (2 sources) Chronic kidney disease, stage 4 (severe); Translations: [Chronic kidney disease, stage 4 (severe)] Onset: 09-08-2022 Chronic Chronic kidney disease (2 sources) Chronic kidney disease; Translations: [Chronic kidney disease, stage 3b] Onset: 09-08-2022 Conduction disorders (2 sources) Presence of cardiac pacemaker; Translations: [Presence of cardiac pacemaker] Onset: 01-12-2023 Chronic Congestive heart failure; nonhypertensive (3 sources) Acute combined systolic (congestive) and diastolic (congestive) heart failure; Translations: [Unspecified diastolic (congestive) heart failure] Onset: 08-14-2021 Chronic Coronary atherosclerosis and other heart disease (2 sources) 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; Translations: [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] Onset: 10-27-2022 Chronic Disorders of lipid metabolism (2 sources) Hyperlipidemia, unspecified; Translations: [Pure hypercholesterolemia, unspecified] Onset: 08-14-2021 Chronic Esophageal disorders (2 sources) Gastro-esophageal reflux disease without esophagitis; Translations: [Gastro-esophageal reflux disease without esophagitis] Onset: 01-05-2023 Chronic Essential hypertension (2 sources) Essential (primary) hypertension; Translations: [Essential (primary) hypertension] Onset: 11-28-2021 Chronic Hypertension with complications and secondary hypertension (1 source) Hypertensive heart disease with heart failure; Translations: [HTN HEART DISEASE W/HEART FAIL] Onset: 01-26-2022 Chronic Nutritional deficiencies (2 sources) Vitamin D deficiency, unspecified; Translations: [Vitamin D deficiency, unspecified] Onset: 07-20-2023 Chronic Osteoporosis (6 sources) Age-related osteoporosis without [...] unspecified; Translations: [Ventricular tachycardia, unspecified] Onset: 07-14-2022 Past or Other Problems Problem Classification Problem [...] object(s), not elsewhere classified, initial encounter; Translations: [CNTC OTH SHRP OB NOT ELSW CLASS INI] Onset: 08-14-2021 Episodic Gastritis and duodenitis (2 sources) Duodenitis without bleeding; Translations: [Duodenitis without bleeding] Onset: 02-09-2023 Episodic Noninfectious gastroenteritis (2 sources) Noninfective gastroenteritis [...] 08-12-2021 Episodic Other aftercare (1 source) Other skilled nursing (current) drug therapy; Translations: [OTH PENITENTIARY CURRENT DRUG THERAPY] Onset: 08-14-2021 Episodic Other [...] involving the circulatory and respiratory systems; Translations: [OTH SPEC SX SIGNS INVLV CIRC RS] Onset: 10-29-2021 Episodic Other diseases of veins and lymphatics (1 source) Venous insufficiency (chronic) (peripheral); Translations: [VENOUS INSUFF CHRONIC PERIPHERAL] Onset: 01-19-2022 Episodic Other gastrointestinal disorders (2 sources) Change in bowel habit; Translations: [Change in bowel habit] Onset: 01-05-2023 Episodic Other lower respiratory disease (4 sources) Shortness of breath; Translations: [SHORTNESS OF BREATH] Onset: 01-26-2022 Episodic Other screening for suspected conditions (not [...] unspecified; Translations: [Ventricular tachycardia, unspecified] Onset: 07-22-2022 Results Test Name Value Interpretation Reference Range Facility Office Visiton 07-20-2023 Follow-up visit [id number] Brian Sadler se 1950 F Date Provider Department [place] 07/20/2023 TIAN BRADSHAW [facility] NEPHRO Comprehensiv Family History Problem Relation Age of Onset Other Mother Coronary artery disease Mother Other Mother Other Mother Other Father Hypertension Father Hyperlipidemia Father Other Daughter Family Status - Relation Status Age at Mother Father Daughter Level of Service:03654 PA OFFICE/OUTPATIENT ESTABLISHED LOW MDM 20 MIN Reason for Visit and Comments: Follow-up [109507] Normal [facility] CREATININE, URINE, RANDOMon 07-09-2023 Creatinine (U) [Mass/Vol] 142.0 mg/dL Normal 26-299 [facility] Comment on above: Performed By: #### L [id number] #### [facility] ([facility]) [address] [place] [address] Performed By: #### L [id number] #### [facility] ([facility]) [address] [facility] [facility] [place] [address] Follow-Upon 07-09-2023 Follow-Up [id number] Brian Sadler se 1950 F Date Provider Department Center 07/09/2023 JOSE ANGEL LEE [facility] Family History Problem Relation Age of Onset Other Mother Coronary artery disease Mother Other Mother Other Mother Other Father Hypertension Father Hyperlipidemia Father Other Daughter Family Status - Relation Status Age at Mother Father Daughter Level of Service:09074 PA OFFICE/OUTPATIENT ESTABLISHED LOW MDM 20 MIN Reason for Visit and Comments: Follow-up [655579] - F/U S/P TFESI S1 - 30% pain relief Normal [facility] MICROALBUMIN, URINE, RANDOMo n 07-09-2023 Albumin DL <= 20 mg/L (U) [Mass/Vol] 2.3 mg/dL Normal [facility] Comment on above: Performed By: #### L [id number] #### [facility] ([facility]) [address] [place] [address] MICROALBUMIN/CREAT ININE (MG/G) IN URINE 16.2 mg/g Creat Normal 0.0-30.0 [facility] Comment on above: Performed By: #### L [id number] #### [facility] ([facility]) [address] [place] [address] PROTEIN, URINE, RANDOMon Protein (U) [Mass/Vol] 16.6 mg/dL Normal [facility] Comment on above: Result Comment: Ther e are no established reference values for random urine specimens. Performed By: #### L [id number] #### [facility] ([facility]) [address] [place] [address] RENAL FUNCTION PANELon 07-08 Albumin [Mass/Vol] 3.9 g/dL Normal 3.5-5.7 [facility] Comment on above: Performed By: #### L [id number] #### [facility] ([facility]) [address] [place] [address] Anion gap [Moles/Vol] 11 mmol/L Normal 7-20 [facility] Comment on above: Performed By: #### L [id number] #### [facility] ([facility]) [address] [place] [address] CALCIUM (MG/DL) CORRECTED FOR ALBUMIN IN SER/PLAS 9.18 mg/dL Normal [facility] Comment on above: Performed By: #### L [id number] #### [facility] ([facility]) [address] [place] [address] Calcium [Mass/Vol] 9.1 mg/dL Normal 8.6-10.3 [facility] Comment on above: Performed By: #### L [id number] #### [facility] ([facility]) [address] [place] [address] Chloride [Moles/Vol] 109 mmol/L High 98-107 [facility] Comment on above: Performed By: #### L AB19 #### [facility] ([facility]) [address] [place] [address] CO2 [Moles/Vol] 25 mmol/L Normal 21-31 [facility] Comment on above: Performed By: #### L [id number] #### [facility] ([facility]) [address] [place] [address] Creatinine [Mass/Vol] 2.24 mg/dL High 0.60-1.20 [facility] Comment on above: Performed By: #### L [id number] #### [facility] ([facility]) [address] [place] [address] FASTING? UNKNOWN Normal [facility] Comment on above: Performed By: #### L AB19 #### [facility] ([facility]) [address] [place] [address] GLOMERULAR FILTRATION RATE ML/MIN/1.73 SQ M.PREDICTED 22.7 mL/min/1.73m*2 Low >60.0 [facility] Comment on above: Result Comment: The [facility]'s estimated glomerular filtration rate (eGFR) will no longer include consideration of race in its calculation. The National Kidney Foundation's eGFR Task Force developed new recommendations for [...] group of individuals. Performed By: #### L AB19 #### [facility] ([facility]) [address] [place] [address] Glucose [Mass/Vol] 83 mg/dL Normal 70-100 [facility] Comment on above: Performed By: #### L [id number] #### [facility] ([facility]) [address] [place] [address] Magnesium [Mass/Vol] 3.7 mg/dL Normal 2.5-5.0 [facility] Comment on above: Performed By: #### L [id number] #### [facility] ([facility]) [address] [place] [address] Potassium [Moles/Vol] 5.8 mmol/L High 3.5-5.1 [facility] Comment on above: Performed By: #### L [id number] #### [facility] ([facility]) [address] [place] [address] Sodium [Moles/Vol] 139 mmol/L Normal 136-145 [facility] Comment on above: Performed By: #### L [id number] #### [facility] [address] [place] [address] Urea nitrogen [Mass/Vol] 46 mg/dL High 7-25 [facility] Comment on above: Performed By: #### L [id number] #### [facility] ([facility]) [address] [place] [address] UREA NITROGEN/CREATININ E (MASS RATIO) IN SER/PLAS 20.[address] [facility] Comment on above: Performed By: #### L [id number] #### [facility] ([facility]) [address] [place] [address] TSHon 07-09-2023 THYROTROPIN (MIU/L) IN SER/PLAS BY DETECTION LIMIT <= 0.05 MIU/L 0.03 mIU/L Low 0.34-5.60 [facility] Comment on above: Performed By: #### L [id number] #### [facility] ([facility]) [address] [place] [address] Orders Onlyon 06-22-2023 Orders Only [id number] Brian Sadler se 1950 F Date Provider Department [place] 06/22/2023 EMMANUEL BECK [facility] NEPHRO Comprehensiv Family History Problem Relation Age of Onset Other Mother Coronary artery disease Mother Other Mother Other Mother Other Father Hypertension Father Hyperlipidemia Father Other Daughter Family Status - Relation Status Age at Mother Father Daughter Normal [facility] ANESon 05-31-2023 ANES ---- -------- Attestation signed by Jose Angel Meehan MD at 05/31/2023 8:02 AM By using the attestations below, the signing clinician agrees that I have read and verify that the documentation has been personally reviewed by me and ensure that the documentation accurately reflects the encounter. Office Visit Attestation GC: I personally saw this patient on the day of the encounter, performed the sands portion(s) of the service and participated in the management and confirm the resident's documentation. Please note there may be an additional personal documentation from me. -------- Patient: Vero Sadler Pre-sedation Evaluation: Sedation necessary for: Analgesia and Anxiety Requesting service: pain management History of Present Illness: long stand back and leg pain bilaterally Past Medical History: Diagnosis Date Abnormal ECG Adverse effect of anesthesia heartrate drops after colonoscopy Arthritis Chronic kidney disease COPD (chronic obstructive pulmonary disease) ([facility]) Hypertension Myocardial infarction ([facility]) Obstructive sleep apnea 10/02/2022 SOBIA=17.7 events/hour; Pranav SaO2=76%; Szhvit=023.0 lbs; BMI=52.7 kg/m2, Home Sleep Apnea Testing on 09/25/[address] 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 Symptomatic bradycardia 01/01/2023 Other secondary pulmonary hypertension ([facility]) 12/15/2022 KATIE on CPAP 12/15/2022 Nonsustained paroxysmal ventricular tachycardia ([facility]) 11/30/2022 A-fib ([facility]) 04/21/2022 Spinal stenosis of lumbar region with neurogenic claudication 01/30/2022 Lower abdominal pain 01/30/2022 Spondylosis of lumbosacral region without myelopathy or radiculopathy 01/30/2022 Essential hypertension 01/25/2020 Chest pain 07/27/2016 Dyspnea 07/27/2016 Edema 07/27/2016 Fatigue 07/27/2016 Lightheadedness 07/27/2016 Obstructive sleep apnea 10/02/2022 VT (ventricular tachycardia) ([facility]) 04/29/2022 Clinical trial exam 04/23/2022 Allergies: Allergies Allergen Reactions Penicillins Other 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 Doesn't take when traveling) 90 tablet 3 carvedilol (Coreg) 12.5 mg tablet Take 1 tablet (12.5 mg) by mouth in the morning and at bedtime. 60 tablet 0 clotrimazole-betamethaso ne (Lotrisone) cream APPLY SMALL AMOUNT TO AFFECTED AREA EXTERNALLY TWICE A DAY *USE SPARINGLY* diclofenac (Voltaren) 75 mg EC tablet Take 75 mg by mouth in the morning and at bedtime. Do not crush, chew, or split. hydrALAZINE (Apresoline) 100 mg tablet Take 100 mg by mouth in the morning, at noon, and at bedtime. hyoscyamine (Levsin/SL) 0.125 mg SL tablet every 6 (six) hours if needed. levothyroxine (Synthroid, Levoxyl) 100 mcg tablet Take 100 mcg by mouth before breakfast. liothyronine (Cytomel) 25 mcg tablet Take 1 tablet by mouth in the morning. lisinopril 10 mg tablet Take 1 tablet (10 mg) by mouth in the morning. 90 tablet 3 lovastatin (Mevacor) 20 mg tablet Take 20 mg by mouth in the morning. methylcellulose, laxative, (CitruceL Sugar Free) powder Mix 1 tablespoon in 8 oz (240 mL) of cold water. Take by mouth once daily. Increase frequency as needed up to 3 times daily. Start with a low dose and slowly increase to prevent worse bloating. 479 g 3 omega 2-vhm-ayu-fish oil 350 mg-235 mg- 90 mg-597 mg capsule,delayed release(DR/EC) Take 1 capsule by mouth in the morning. pantoprazole (ProtoNix) 40 mg EC tablet TAKE 1 TABLET BY MOUTH ONCE EVERYDAY BEFORE BREAKFAST *DO NOT CRUSH/CHEW/SPLIT* 90 tablet 1 revefenacin (Yupelri) 175 mcg/3 mL nebulizer solution Take 175 mcg by nebulization if needed each day. No current facility-administered medications for this encounter. Past Surgical History: has a past surgical history that includes Eye surgery; Cardiac catheterization; Foot surgery (Right); Hysterectomy; Colonoscopy (02/09/2023); and Insert / replace / remove pacemaker (01/12/2023). Recent sedation/surgery (24 hours) No Review of Systems: Please check all that apply: Obesity test completed prior to procedure on any menstruating female: none NPO guidelines met: Yes Physical Exam Airway Mallampati: II TM distance: >3 FB Neck ROM: full Cardiovascular Rhythm: regular Rate: normal Dental - normal exam Pulmonary - normal exam B (more content not included)... Normal [facility] HPon 05-31-2023 HP ---- -------- Attestation signed by Jose Angel Meehan MD at 05/31/2023 7:50 AM By using the attestations below, the signing clinician agrees that I have read and verify that the documentation has been personally reviewed by me and ensure that the documentation accurately reflects the encounter. Office Visit Attestation GC: I personally saw this patient on the day of the encounter, performed the sands portion(s) of the service and participated in the management and confirm the resident's documentation. Please note there may be an additional personal documentation from me. -------- History Of Present Illness Vero Sadler is a 73 y.o. female presenting with long standing leg and lower back pain, She presenters today for a bilateral TFESI S1. Past Medical History She has a past medical history of Abnormal ECG, Adverse effect of anesthesia, Arthritis, Chronic kidney disease, COPD (chronic obstructive pulmonary disease) ([facility]), Hypertension, Myocardial infarction ([facility]), and Obstructive sleep apnea (10/02/2022). Surgical History She has a past surgical history that includes Eye surgery; Cardiac catheterization; Foot surgery (Right); Hysterectomy; Colonoscopy (02/09/2023); and Insert / replace / remove pacemaker (01/12/2023). Social History She reports that she quit smoking about 16 years ago. Her smoking use included cigarettes. She has never been exposed to tobacco smoke. She has never used smokeless tobacco. She reports current alcohol use. She reports that she does not use drugs. Family History Family History Problem Relation Name Age of Onset Other (malig neoplastic disease) Mother Coronary artery disease Mother Other (cerebrovascular accident) Mother Other (renal disease) Mother Other (malig neoplastic disease) Father Hypertension Father Hyperlipidemia Father Other (malig neoplastic disease) Daughter Allergies Penicillins Medications (Not in a hospital admission) Airway Assessment and ASA Score Review of Systems Last Recorded Vitals Visit Vitals LMP (LMP Unknown) OB Status Hysterectomy Smoking Status Former Physical Exam General appearance: Well appearing, in no acute distress, alert. Psych: Mood and affect appropriate. Alert and oriented Skin: Skin color, texture, turgor normal, no rashes or lesions. HEENT: normocephalic, atraumatic, sclera non-icteric Relevant Lab Results Lab Results Component Value Date NA 144 09/08/2022 K 4.4 09/08/2022 CL 108 (H) 09/08/2022 CO2 30 09/08/2022 BUN 19 09/08/2022 CREATININE 1.41 (H) 09/08/2022 GLUCOSE 102 (H) 09/08/2022 CALCIUM 8.8 09/08/2022 ANIONGAP 10 09/08/2022 EGFR 39.9 (L) 09/08/2022 BCR 13.5 09/08/2022 Relevant Imaging Results Diagnostic Colonoscopy Table formatting from the original result was not included. Colonoscopy Procedure Note Procedure: Colonoscopy with biopsies Indications: 72 y.o F presenting with abdominal pain, bloating, and diarrhea. She reports a family history of colon cancer in her father, and Crohn's disease in her mother. Sedation: MAC Attending Physician: Dr. Dario Calderon Correctional Supervisor: Nancy Prado, Fellow Procedure Details Informed consent was obtained for the procedure, including sedation. Risks of perforation, hemorrhage, adverse drug reaction and aspiration were discussed. The patient was placed in the left lateral decubitus position. The patient was monitored continuously with ECG tracing, pulse oximetry, blood pressure monitoring, and direct observations. A rectal examination was performed. The colonoscope was inserted into the rectum and advanced under direct vision to the terminal ileum. A careful inspection was made as the colonoscope was withdrawn, including a retroflexed view of the rectum; findings and interventions are described below. Appropriate photodocumentation was obtained. Findings: Poor colon prep. The examined terminal [...] evidence of skin tags and small external hemorrhoids. Quality of colonic prep: poor Withdrawal time: 14 minutes Specimens: Order Name Source Comment Collection Info Order Time HISTOLOGY - TISSUE EXAM Small Intestine, Duodenum Collected By: Nancy Prado MD 02/09/2023 1:46 PM Release to Patient Immediately Complications: None Estimated blood loss: None Disposition: Home Condition: stable Impression: Poor colon prep. (more content not included)... Normal [facility] HP History Of Present Illness Vero Sadler is a 73 y.o. female presenting with low back pain Past Medical History She has a past medical history of Abnormal ECG, Adverse effect of anesthesia, Arthritis, Chronic kidney disease, COPD (chronic obstructive pulmonary disease) ([facility]), Hypertension, Myocardial infarction ([facility]), and Obstructive sleep apnea (10/02/2022). Surgical History She has a past surgical history that includes Eye surgery; Cardiac catheterization; Foot surgery (Right); Hysterectomy; Colonoscopy (02/09/2023); and Insert / replace / remove pacemaker (01/12/2023). Social History She reports that she quit smoking about 16 years ago. Her smoking use included cigarettes. She has never been exposed to tobacco smoke. She has never used smokeless tobacco. She reports current alcohol use. She reports that she does not use drugs. Family History Family History Problem Relation Name Age of Onset Other (malig neoplastic disease) Mother Coronary artery disease Mother Other (cerebrovascular accident) Mother Other (renal disease) Mother Other (malig neoplastic disease) Father Hypertension Father Hyperlipidemia Father Other (malig neoplastic disease) Daughter Allergies Penicillins Medications (Not in a hospital admission) Airway Assessment and ASA Score: Mallampati:: II TM distance:: >3 FB Neck ROM:: Limited ASA:: 3 Review of Systems Last Recorded Vitals Visit Vitals LMP (LMP Unknown) OB Status Hysterectomy Smoking Status Former Physical Exam Vitals and nursing note reviewed. Constitutional: Appearance: Normal appearance. She is obese. HENT: Head: Normocephalic and atraumatic. Pulmonary: Effort: Pulmonary effort is normal. Musculoskeletal: General: Tenderness present. Skin: General: Skin is warm and dry. Neurological: General: No focal deficit present. Mental Status: She is alert. Mental status is at baseline. Psychiatric: Mood and Affect: Mood normal. Thought Content: Thought content normal. Judgment: Judgment normal. Relevant Lab Results Lab Results Component Value Date NA 144 09/08/2022 K 4.4 09/08/2022 CL 108 (H) 09/08/2022 CO2 30 09/08/2022 BUN 19 09/08/2022 CREATININE 1.41 (H) 09/08/2022 GLUCOSE 102 (H) 09/08/2022 CALCIUM 8.8 09/08/2022 ANIONGAP 10 09/08/2022 EGFR 39.9 (L) 09/08/2022 BCR 13.5 09/08/2022 Relevant Imaging Results Diagnostic Colonoscopy Table formatting from the original result was not included. Colonoscopy Procedure Note Procedure: Colonoscopy with biopsies Indications: 72 y.o F presenting with abdominal pain, bloating, and diarrhea. She reports a family history of colon cancer in her father, and Crohn's disease in her mother. Sedation: [facility] Attending Physician: Dr. Dario Calderon Correctional Supervisor: Nancy Prado, Fellow Procedure Details Informed consent was obtained for the procedure, including sedation. Risks of perforation, hemorrhage, adverse drug reaction and aspiration were discussed. The patient was placed in the left lateral decubitus position. The patient was monitored continuously with ECG tracing, pulse oximetry, blood pressure monitoring, and direct observations. A rectal examination was performed. The colonoscope was inserted into the rectum and advanced under direct vision to the terminal ileum. A careful inspection was made as the colonoscope was withdrawn, including a retroflexed view of the rectum; findings and interventions are described below. Appropriate photodocumentation was obtained. Findings: Poor colon prep. The examined terminal [...] evidence of skin tags and small external hemorrhoids. Quality of colonic prep: poor Withdrawal time: 14 minutes Specimens: Order Name Source Comment Collection Info Order Time HISTOLOGY - TISSUE EXAM Small Intestine, Duodenum Collected By: Nancy Prado MD 02/09/2023 1:46 PM Release to Patient Immediately Complications: None Estimated blood loss: None Disposition: Home Condition: stable Impression: Poor colon prep. Normal terminal ileum, no evidence of ileitis. Sigmoid diverticulosis. External hemorrhoids and skin tags. Recommendations: Follow up random colon biopsies to rule out microscopic colitis. Patient will require repeat colonoscopy for colon cancer screening, with two day prep, in one year. Attending Attestation: I was present and scrubbed for the entire procedure. EGD Table formatting from the original result was not included. Esophagogastroduod (more content not included)... [facility] Prep for Procedureon 024 Prep for Procedure [id number] Brian Sadler se 1950 F Date Provider Department Center 05/24/2023 POONAM SINGLETON MP [facility] Family History Problem Relation Age of Onset Other Mother Coronary artery disease Mother Other Mother Other Mother Other Father Hypertension Father Hyperlipidemia Father Other Daughter Family Status - Relation Status Age at Mother Father Daughter [facility] 36on 04-22-2023 36 Patient contacted an d [...] sometimes takes 48 -72 hours for the doctors/ASSISTANT CASINO SHIFT MANAGER's to return messages. Apologized that we were not able to meet her needs and voiced that we understand her feelings and decision not to utilized services at this time [facility] 36on 04-19-2023 36 Vero has called, stating she is not feeling well, in Re: recurrent diarrhea /not feeling well and she mention a breathing test they may not work, she is looking for answers to why she is not feeling well in a lot of pain, please advise with patient [phone] ???This phone message was created by the ambulatory float staff. If you need technical support consultant follow up regarding this patient, please make your appropriate clinic staff member aware, Thank you??? [facility] Telephoneon 04-19-2023 Telephone [id number] Brian Sadler se 1950 F Date Provider Department Center 04/19/2023 [id number] KUHN [facility] Family History Problem Relation Age of Onset Other Mother Coronary artery disease Mother Other Mother Other Mother Other Father Hypertension Father Hyperlipidemia Father Other Daughter Family Status - Relation Status Age at Mother Father Daughter [facility] Prep for Procedureon 024 Prep for Procedure [id number] Brian Sadler se 1950 F Date Provider Department [place] 04/12/2023 LEENA BURK MP [facility] Family History Problem Relation Age of Onset Other Mother Coronary artery disease Mother Other Mother Other Mother Other Father Hypertension Father Hyperlipidemia Father Other Daughter Family Status - Relation Status Age at Mother Father Daughter [facility] Prep for Procedureon 024 Prep for Procedure [id number] Brian Sadler se 1950 Provider Department [place] 03/31/2023 JOSE ANGEL LEE MP [facility] Family History Problem Relation Age of Onset Other Mother Coronary artery disease Mother Other Mother Other Mother Other Father Hypertension Father Hyperlipidemia Father Other Daughter Family Status - Relation Status Age at Mother Father Daughter [facility] Follow-Upon 03-26-2023 Follow-Up [id number] Brian Sadler se 1950 Date Provider Department Center 03/26/2023 JOSE ANGEL LEE MP PAIN [facility] Family History Problem Relation Age of Onset Other Mother Coronary artery disease Mother Other Mother Other Mother Other Father Hypertension Father Hyperlipidemia Father Other Daughter Family Status - Relation Status Age at Mother Father Daughter Level of Service:94593 PA OFFICE/OUTPATIENT ESTABLISHED LOW MDM 20 MIN (GC) Reason for Visit and Comments: Follow-up [107303] - Physical Therapy only did a couple days of PT because of COPD and chest hurting [facility] Office Visiton 03-23-2023 Follow-up visit [id number] Brian Sadler se Shamika 1950 Provider Department Center 03/23/2023 241-IRVIN KWOK CARD [facility] Family History Problem Relation Age of Onset Other Mother Coronary artery disease Mother Other Mother Other Mother Other Father Hypertension Father Hyperlipidemia Father Other Daughter Family Status - Relation Status Age at Mother Father Daughter Level of Service:70442 PA OFFICE/OUTPATIENT ESTABLISHED LOW MDM 20 MIN [facility] Letter (Out)on 02-23-2023 Letter (Out) [id number] Brian Sadler se Shamika 1950 Provider Department Center 02/23/2023 [id number]-NANCY PRADO [facility] Family History Problem Relation Age of Onset Other Mother Coronary artery disease Mother Other Mother Other Mother Other Father Hypertension Father Hyperlipidemia Father Other Daughter Family Status - Relation Status Age at Mother Father Daughter [facility] 36on 02-22-2023 36 Spoke with patient aniceto ho voiced understanding not to complete the MRI at this time due to kidneys. Advised that the patient contact the Endoscopy department to review questions regarding HBT. [facility] 36 ----- Message from Natalia Kuhn [...] we can do the MRE. Thank you. [facility] Orders Onlyon 2023 Orders Only [id number] Brian Sadler se Shamika 1950 Provider Department Center 2023 [id number] UKHN [facility] Family History Problem Relation Age of Onset Other Mother Coronary artery disease Mother Other Mother Other Mother Other Father Hypertension Father Hyperlipidemia Father Other Daughter Family Status - Relation Status Age at Mother Father Daughter [facility] 36on 02-17-2023 36 Instruction sheet fo r HBT and US order mailed to the patient. I scanned the stool study results into patients chart and sent them into Tierra's basket. [facility] 36 ----- Message from Natalia Kuhn NP sent at 02/16/2023 7:59 PM EST ----- Gabe Esteves, Do you mind helping mailing her a Hydrogen Breath Test instruction packet and Gall bladder US orders to her house. Do you mind also calling [facility] and requesting all her stool study results from dec or jan. They never faxed us any results. They are important so I can further help her. Thank you so much. I really appreciate your help with this. [facility] Orders Onlyon 02-17-2023 Orders Only [id number] Brian Sadler se Wick 1950 F Date Provider Department Center 02/17/2023 [id number], HISTORICAL MP [facility] Family History Problem Relation Age of Onset Other Mother Coronary artery disease Mother Other Mother Other Mother Other Father Hypertension Father Hyperlipidemia Father Other Daughter Family Status - Relation Status Age at Mother Father Daughter [facility] Telemedicineon 02-16-2023 Telemedicine [id number] Brian Sadler se Shamika 1950 F Date Provider Department Center 02/16/2023 [id number]-[id number] KUHN*MP [facility] Family History Problem Relation Age of Onset Other Mother Coronary artery disease Mother Other Mother Other Mother Other Father Hypertension Father Hyperlipidemia Father Other Daughter Family Status - Relation Status Age at Mother Father Daughter Level of Service:08778 PA OFFICE/OUTPATIENT ESTABLISHED HIGH MDM 40-54 MIN [facility] HISTOLOGY - TISSUE EXAMon LAB AP [...] the Clinical Laboratory Improvement Amendments of 1998. [facility] Comment on above: Performed By: #### L [id number] ####[facility] ([facility])[address] [place] [address] LAB AP CASE REPORT [facility] Comment on above: Result Comment: Surg ical Pathology Case: [id number] Authorizing Provider: Dario Calderon MD Collected: 02/09/2023 1345 Ordering Location: [facility] [place] Received: 02/09/2023 1515 [facility] Endoscopy Pathologist: Jessica Pugh MD Specimens: A) - Small Intestine, Duodenum, r/o celiac B) - Gastric, r/o h pylori C) - Large Intestine, random colon biopsies microscopic colitis Performed By: #### L [id number] ####[facility] ([facility])[address] [place] [address] LAB AP CLINICAL INFORMATION Order Diagnoses [facility] Comment on above: Result Comment: R10. [...] esophagitis present [ICD-10-CM] Performed By: #### L [id number] ####[facility] ([facility])[address] [place] [address] LAB AP GROSS DESCRIPTION [facility] Comment on above: Result Comment: A. S mall Intestine, Duodenum. The specimen is received in formalin labeled Vero Sadler, and r/o celiac . It consists of. 6 whitehead-pink irregular fragments of soft tissue measuring 0.6 x 0.4 x 0.2 cm in aggregate. The specimen is submitted in toto in 1 cassette. Vashti Marlow, Pathologists' Correctional Supervisor student Clement Brower, Pathologists' Correctional Supervisor B. Gastric. The specimen is received in formalin labeled Vero Sadler, and r/o H. pylori . It consists of 3 whitehead-pink irregular fragments of soft tissue measuring 0.6 x 0.2 x 0.2 cm in aggregate. The specimen is submitted in toto in 1 cassette. Vashti Marlow, Pathologists' Correctional Supervisor student Clement Brower, Pathologists' Correctional Supervisor C. Large Intestine. The specimen is received in formalin labeled Vero Wick Sadler, and random colon biopsies microscopic colitis . It consists of 8 whitehead-pink irregular fragments of soft tissue measuring 0.9 x 0.6 x 0.2 cm in aggregate. The specimen is submitted in toto in 1 cassette. Vashti Marlow, Pathologists' Correctional Supervisor student Clement Brower, Pathologists' Correctional Supervisor Performed By: #### L [id number] ####[facility] ([facility])[address] [place] [address] LAB AP MICROSCOPIC DESCRIPTION Microscopic examination performed. [facility] Comment on above: Performed By: #### L [id number] ####[facility] ([facility])[address] [place] [address] LAB AP REPORT FINAL DIAGNOSIS NARRATIVE [facility] Comment on above: Result Comment: A. [...] malignancy is seen. Performed By: #### L [id number] ####[facility] ([facility])[address] [place] [address] HPon 02-09-2023 HP ---- -------- Attestation signed [...] father. She had a prior colonoscopy at [facility], which was reportedly normal 3-4 years ago. [...] father. She had a prior colonoscopy at [facility], which was reportedly normal 3-4 years ago. She has never had a prior EGD. PAST MEDICAL, SURGICAL, FAMILY, and SOCIAL HISTORY Past Medical History: Past Medical History: Diagnosis Date Abnormal ECG Adverse effect of anesthesia heartrate drops after colonoscopy Arthritis Chronic kidney disease COPD (chronic obstructive pulmonary disease) ([facility] Hypertension Myocardial infarction ([facility]) Obstructive sleep apnea 10/02/2022 SOBIA=17.7 events/hour; Pranav SaO2=76%; Qrxxtv=031.0 lbs; BMI=52.7 kg/m2, Home Sleep Apnea Testing on 09/25/[address] [facility] Past Surgical History: Past Surgical History: [...] tablet Won (more content not included)... [facility] POCT GLUCOSE METER UNSOLICIT ED RESULTSon 02-09-2023 Glucose [Mass/Vol] 86 mg/dL [facility] Comment on above: Order Comment: Waive d Testing in the ED is performed under the ED CLIA certificate #[id number]. Result Comment: acle ment Performed By: #### L [id number] #### [facility] ([facility]) [address] [place] [address] Prep for Procedureon 023 Prep for Procedure [id number] Brian Sadler se 1950 Provider Department Center 01/28/2023 [facility] JAVIER [facility] Family History Problem Relation Age of Onset Other Mother Coronary artery disease Mother Other Mother Other Mother Other Father Hypertension Father Hyperlipidemia Father Other Daughter Family Status - Relation Status Age at Mother Father Daughter [facility] Follow-Upon 01-20-2023 Follow-Up [id number] Brian Sadler se 1950 Provider Department Center 01/20/2023 CINTIA NIXON Family History Problem Relation Age of Onset Other Mother Coronary artery disease Mother Other Mother Other Mother Other Father Hypertension Father Hyperlipidemia Father Other Daughter Family Status - Relation Status Age at Mother Father Daughter Level of Service:09745 PA OFFICE/OUTPATIENT ESTABLISHED MOD MDM 30-39 MIN Reason for Visit and Comments: Dizziness [795987] Wound Check [413900] [facility] HPon 01-12-2023 History Of Present Illness Vero Sadler is a 72 y.o. female presenting with sick sinus syndrome. Past Medical History She has a past medical history of Abnormal ECG, Arthritis, Chronic kidney disease, COPD (chronic obstructive pulmonary disease) (CMS/HCC), Hypertension, Myocardial infarction (CMS/[facility]), and Obstructive sleep apnea (10/02/2022). Surgical History [...] by mouth in the morning. 01/11/2023 omega 2-dmi-tym-fish oil 350 mg-235 mg- 90 mg-597 mg [...] 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CMS/HCC) Pacemaker Jennifer Bullock MD [facility] NURSNOTEon 01-12-2023 NURSNOTE RN educated pt on d/ c instructions. RN encouraged pt to voice any questions or concerns. Pt verbalizes no questions or concerns at this time. [facility] NURSNOTE CHG wipes and betadi ne swabs completed. [facility] Orders Onlyon 01-12-2023 Orders Only [id number] Brian Sadler se 1950 F Date Provider Department Center 01/12/2023 NAY TREVINO [facility] Family History Problem Relation Age of Onset Other Mother Coronary artery disease Mother Other Mother Other Mother Other Father Hypertension Father Hyperlipidemia Father Other Daughter Family Status - Relation Status Age at Mother Father Daughter [facility] Orders Onlyon 01-06-2023 Orders Only [id number] Brian Sadler se M 1950 Date Provider Department Center 01/06/2023 Hanane7-JANES [facility] Family History Problem Relation Age of Onset Other Mother Coronary artery disease Mother Other Mother Other Mother Other Father Hypertension Father Hyperlipidemia Father Other Daughter Family Status - Relation Status Age at Mother Father Daughter [facility] Office Visiton 01-05-2023 Follow-up visit [id number] Brian Sadler se 1950 F Date Provider Department Center 01/05/2023 [id number] KUHN*MP [facility] Family History Problem Relation Age of Onset Other Mother Coronary artery disease Mother Other Mother Other Mother Other Father Hypertension Father Hyperlipidemia Father Other Daughter Family Status - Relation Status Age at Mother Father Daughter Level of Service:57798 PA OFFICE/OUTPATIENT NEW MODERATE MDM 45-59 MINUTES Reason for Visit and Comments: New Patient [632] Abdominal Pain [810766] - Pt states when she eats she feels pain in her stomach change in bowel habits [Other] Gas [49] [facility] Orders Onlyon 01-05-2023 Orders Only [id number] Brian Sadler se 1950 Provider Department Center 01/05/2023 COLLETTE RODRIGUEZ [facility] St. Family History Problem Relation Age of Onset Other Mother Coronary artery disease Mother Other Mother Other Mother Other Father Hypertension Father Hyperlipidemia Father Other Daughter Family Status - Relation Status Age at Mother Father Daughter [facility] Office Visiton 01-01-2023 Follow-up visit [id number] Brian Sadler se 1950 F Date Provider Department Center 01/01/2023 COLLETTE RODRIGUEZ LEEANN [facility] Family History Problem Relation Age of Onset Other Mother Coronary artery disease Mother Other Mother Other Mother Other Father Hypertension Father Hyperlipidemia Father Other Daughter Family Status - Relation Status Age at Mother Father Daughter Level of Service:62036 PA OFFICE/OUTPATIENT ESTABLISHED MOD MDM 30-[address] [facility] Follow-Upon 12-22-2022 Follow-Up [id number] Brian Sadler se 1950 Date Provider Department Center 12/22/2022 JOSE ANGEL LEE MP [facility] Family History Problem Relation Age of Onset Other Mother Coronary artery disease Mother Other Mother Other Mother Other Father Hypertension Father Hyperlipidemia Father Other Daughter Family Status - Relation Status Age at Mother Father Daughter Level of Service:76162 PA POSTOP FOLLOW UP VISIT RELATED TO ORIGINAL PX Reason for Visit and Comments: Follow-up [700173] - Vertiflex at L3-4 and L4-5 [facility] Office Visiton 12-15-2022 Follow-up visit [id number] Brian Sadler se 1950 Date Provider Department Center 12/15/2022 [id number]-PBXFLOTIAN KIRAN [facility] NEPHRO Comprehensiv Family History Problem Relation Age of Onset Other Mother Coronary artery disease Mother Other Mother Other Mother Other Father Hypertension Father Hyperlipidemia Father Other Daughter Family Status - Relation Status Age at Mother Father Daughter Level of Service:88517 PA OFFICE/OUTPATIENT ESTABLISHED LOW MDM 20-29 MIN Reason for Visit and Comments: Follow-up [086987] [facility] 36on 12-14-2022 36 Patient left a voice mail indicating she has been receiving calls to set up an appointment with her DME ([facility]) to be set up with CPAP. Patient was under the impression she would be meeting with me. Left voicemail with patient explaining that, since [facility] will be providing the equipment, she should have the initial appointment with them. Then, if she has further questions or issues, she can let me know and I will meet further with her. [facility] Follow-Upon 12-08-2022 Follow-Up [id number] Brian Sadler se 1950 Provider Department Center 12/08/2022 JOSE ANGEL LEE MP [facility] Family History Problem Relation Age of Onset Other Mother Coronary artery disease Mother Other Mother Other Mother Other Father Hypertension Father Hyperlipidemia Father Other Daughter Family Status - Relation Status Age at Mother Father Daughter Level of Service:30756 PA POSTOP FOLLOW UP VISIT RELATED TO ORIGINAL PX Reason for Visit and Comments: Follow-up [049661] - one week post op -Vertiflex at L3-4 and L4-5 [facility] HPon 11-30-2022 HP H&P reviewed. The patient was examined and there are no changes to the H&P. [facility] OPNOTEon 11-30-2022 OPNOTE L3-L5 SPINE DECOMPRESSION , USING VERTIFLEX SUPERION INTERSPINOUS SPACER Operative Note Date: 11/30/2022 Location: [facility] OR Name: Vero Sadler, : 1950, Diagnosis Pre-op Diagnosis * Spinal stenosis of lumbar region with neurogenic claudication [M48.062] Post-op Diagnosis * Spinal stenosis of lumbar region with neurogenic claudication [M48.062] Procedures L3-L5 SPINE DECOMPRESSION , USING VERTIFLEX SUPERION INTERSPINOUS SPACER 13610 - PA INSJ STABLJ DEV W/O DCMPRN LUMBAR SINGLE LEVEL PA INSJ STABLJ DEV W/O DCMPRN LUMBAR SECOND LEVEL [16072] Surgeons * Jose Angel Meehan - Primary Procedure Summary Anesthesia: Monitor Anesthesia Care ASA: III Estimated Blood Loss: minimal Total IV Fluids: See anesthesia record Drains: * None in log * Implants Type Name Action Serial No. SUPERION IDS - 10MM Implanted SUPERION IDS - 12MM Implanted Staff: Vacuum Kettle Cook: Eran Roa RN Scrub Person: Paulette García CST Ore Smelter: Deandre Campos CSA Indications: Vero Sadler is [...] Angel Meehan Attestation: (more content not included)... [facility] Orders Onlyon 11-30-2022 Orders Only [id number] Brian Sadler se 1950 F Date Provider Department Center 11/30/2022 JOSE ANGEL LEE [facility] Family History Problem Relation Age of Onset Other Mother Coronary artery disease Mother Other Mother Other Mother Other Father Hypertension Father Hyperlipidemia Father Other Daughter Family Status - Relation Status Age at Mother Father Daughter [facility] POCT GLUCOSE METER UNSOLICIT ED RESULTSon 11-30-2022 Glucose [Mass/Vol] 92 mg/dL Normal 70-105 [facility] Comment on above: Order Comment: Waive d Testing in the ED is performed under the ED CLIA certificate #[id number]. Result Comment: asor ia3 Performed By: #### L [id number] ####[facility] ([facility])[address] [place] [address] Physician Referralon 023 Physician Referral [phone] [id number] [id number]:1 [facility] Physician Referralon 023 Physician Referral [phone] [id number]: 127 [facility] 36on 11-11-2022 36 Faxed order, demographics, HSAT report, and visit notes to [facility]. [facility] 36on 11-06-2022 36 Patient came into e office to discuss possible PAP masks. Patient did not want to try nasal pillows as she does not like the idea of anything going up her nose. Patient would like to try hybrid nasal mask (fitted for ResMed AirFit N30 size small or small-wide). Provided sample mask to patient. [facility] Follow-Upon 11-06-2022 Follow-Up [id number] Brian Sadler se 1950 F Date Provider Department Center 11/06/2022 JOSE ANGEL LEE MP [facility] Family History Problem Relation Age of Onset Other Mother Coronary artery disease Mother Other Mother Other Mother Other Father Hypertension Father Hyperlipidemia Father Other Daughter Family Status - Relation Status Age at Mother Father Daughter Level of Service:06577 PA OFFICE/OUTPATIENT ESTABLISHED MOD MDM 30-39 MIN () Reason for Visit and Comments: Follow-up [[id number]] - 4 wk F/U TFESI Normal [facility] HPon 11-06-2022 [facility] Interventional Pain Management SUBJECTIVE: Subjective 11/06/22 [...] since last visit she has seen cardiology travel administrator for [place]. patient reports that overall she [...] further. She was able to walk around [place] which she previously was not able [...] reported as progressively (more content not included)... [facility] on 10-29-2022 36 Patient will come instead as she has an appointment in [place] that morning. [facility] 29on 10-27-2022 29 Addended by: MERRY FREIRE on: 10/28/2022 01:13 PM Modules accepted: Orders [facility] Office Visiton 10-27-2022 Follow-up visit [id number] Brian Sadler se 1950 F Date Provider Department Center 10/27/2022 Halina-IRVIN KWOK LEEANN Ledesma [facility] Family History Problem Relation Age of Onset Other Mother Coronary artery disease Mother Other Mother Other Mother Other Father Hypertension Father Hyperlipidemia Father Other Daughter Family Status - Relation Status Age at Mother Father Daughter Level of Service:61705 PA OFFICE/OUTPATIENT ESTABLISHED MOD MDM 30-39 MIN Reason for Visit and Comments: Follow-up [[id number]] [facility] 36on 10-16-2022 36 Lengthy discussion w ith patient regarding results and PAP therapy. Patient will come into the office (10/29?) to discuss further and look at different mask options. [facility] 36 Yes, sent her refill. Normal [facility] Orders Onlyon 10-16-2022 Orders Only [id number] Brian Sadler se 1950 F Date Provider Department Center 10/16/2022 TIAN BRADSHAW [facility] NEPHRO Comprehensiv Family History Problem Relation Age of Onset Other Mother Coronary artery disease Mother Other Mother Other Mother Other Father Hypertension Father Hyperlipidemia Father Other Daughter Family Status - Relation Status Age at Mother Father Daughter [facility] 3610-15-2022 36 Patient called pelon michelle if she's suppose still be taking calcium carbonate-vitamin D3 1,000 mg-20 mcg and if so she's going to need some sent to the pharmacy. Please advise [facility] 3610-14-2022 36 ----- Message from A naga Cavazos MD sent at 10/02/2022 4:58 PM EDT ----- Regarding: Positive HSAT Damien, positive HSAT. Please notify the patient and ask if she would be agreeable to be set up on APAP therapy. [facility]10-07-2022 H&P reviewed. The patient was examined and there are no changes to the H&P. [facility] 09-25-2022 36 Doesn't look like it was our office that contacted patient. [facility] 36 Pt returned call ple ase call back [facility] 09-22-2022 29 Addended by: FARNAZ DIXON on: 09/22/2022 08:04 PM Modules accepted: Orders [facility] Follow-Upon 09-22-2022 Follow-Up [id number] Brian Sadler se 1950 F Date Provider Department Center 09/22/2022 JOSE ANGEL LEE MP PAIN [facility] Family History Problem Relation Age of Onset Other Mother Coronary artery disease Mother Other Mother Other Mother Other Father Hypertension Father Hyperlipidemia Father Other Daughter Family Status - Relation Status Age at Mother Father Daughter Level of Service:07294 PA OFFICE/OUTPATIENT ESTABLISHED MOD MDM 30-39 MIN Reason for Visit and Comments: Follow-up [[id number]] - DEXA scan [facility] 09-22-2022 [facility] Interventional Pain Management SUBJECTIVE: Subjective 09/22/22 [...] since last visit she has seen cardiology travel administrator for [place]. patient reports that overall she [...] further. She was able to walk around [place] which she previously was not able to [...] standing, walking (more content not included)... Normal [facility] BASIC METABOLIC PANELon 06-2 Anion gap [Moles/Vol] 10 mmol/L Normal - [facility] Comment on above: Performed By: #### L AB15 ####[facility] (BEAKER)[address] [place] [address] Calcium [Mass/Vol] 8.8 mg/dL Normal 8.6-10.3 [facility] Comment on above: Performed By: #### L AB15 ####[facility] (BEAKER)[address] [place] [address] Chloride [Moles/Vol] 108 mmol/L High 98-107 [facility] Comment on above: Performed By: #### L AB15 ####[facility] [place] [address] CO2 [Moles/Vol] 30 mmol/L Normal 21-31 [facility] Comment on above: Performed By: #### L AB15 ####[facility] ([facility] [place] [address] Creatinine [Mass/Vol] 1.41 mg/dL High 0.60-1.20 [facility] Comment on above: Performed By: #### L AB15 ####[facility] ([facility])[address] [place] [address] GLOMERULAR FILTRATION RATE ML/MIN/1.73 SQ M.PREDICTED 39.9 mL/min/1.73m*2 Low >60.0 [facility] Comment on above: Result Comment: [facility]???s estimated glomerular filtration rate (eGFR) will [...] of individuals. Performed By: #### L AB15 ####[facility] ([facility] [place] [address] Glucose [Mass/Vol] 102 mg/dL High 70-100 [facility] Comment on above: Performed By: #### L AB15 ####[facility] ([facility])[address] [place] [address] Potassium [Moles/Vol] 4.4 mmol/L Normal 3.5-5.1 [facility] Comment on above: Performed By: #### L AB15 ####[facility] ([facility])[address] [place] [address] Sodium [Moles/Vol] 144 mmol/L Normal 136-145 [facility] Comment on above: Performed By: #### L AB15 ####[facility] ([facility])[address] [place] [address] Urea nitrogen [Mass/Vol] 19 mg/dL Normal 7-25 [facility] Comment on above: Performed By: #### L AB15 ####[facility] ([facility])[address] [place] [address] UREA NITROGEN/CREATININ E (MASS RATIO) IN SER/PLAS 13.[address] [facility] Comment on above: Performed By: #### L AB15 ####[facility] ([facility])[address] [address] CBCon 09-08-2022 Erythrocyte distribution width (RBC) [Ratio] 13.8 % Normal 11.5-15.0 [facility] Comment on above: Performed By: #### L AB129 #### [facility] ([facility]) [address] [place] [address] ERYTHROCYTE MEAN CORPUSCULAR HEMOGLOBIN CONCENTRATION (G/DL) BY AUTOMATED 30.6 g/dL Low 32.0-35.0 [facility] Comment on above: Performed By: #### L AB129 #### [facility] ([facility]) [address] [place] [address] Hematocrit (Bld) [Volume fraction] 41.5 % Normal 36.0-48.0 [facility] Comment on above: Performed By: #### L AB129 #### [facility] ([facility]) [address] [place] [address] Hemoglobin (Bld) [Mass/Vol] 12.7 g/dL Normal 12.0-15.0 [facility] Comment on above: Performed By: #### L AB129 #### [facility] ([facility]) [address] [place] [address] MCH (RBC) [Entitic mass] 28.3 pg Normal 27.0-33.0 [facility] Comment on above: Performed By: #### L AB129 #### [facility] ([facility]) [address] [place] [address] MCV (RBC) [Entitic vol] 92.6 fL Normal 82.0-98.0 [facility] Comment on above: Performed By: #### L AB129 #### [facility] ([facility]) [address] [place] [address] PLATELETS (10*3/UL) IN BLOOD AUTOMATED COUNT 232 10*3/uL Normal 150-400 [facility] Comment on above: Performed By: #### L AB129 #### [facility] ([facility]) [address] [place] [address] RBC (Bld) [#/Vol] 4.48 10*6/uL Normal 3.80-5.00 [facility] Comment on above: Performed By: #### L AB129 #### [facility] ([facility]) [address] [place] [address] WBC (Bld) [#/Vol] 7.39 10*3/uL Normal 4.00-10.60 [facility] Comment on above: Performed By: #### L AB129 #### [facility] ([facility]) [address] [place] [address] CREATININE, URINE, RANDOMon 09-08-2022 Creatinine (U) [Mass/Vol] 160.0 mg/dL Normal 26-299 [facility] Comment on above: Performed By: #### L AB384 #### [facility] ([facility]) [address] [place] [address] Performed By: #### L AB546 #### [facility] ([facility]) [address] [facility] [place] [address] Labon 09-08-2022 Lab [id number] Brian Sadler se 1950 Provider Department [place] 09/08/2022 2242-[facility] Comprehensiv Family History Problem Relation Age of Onset Other Mother Coronary artery disease Mother Other Mother Other Mother Other Father Hypertension Father Hyperlipidemia Father Other Daughter Family Status - Relation Status Age at Mother Father Daughter Normal [facility] MICROALBUMIN, URINE, RANDOMo n 09-08-2022 Albumin DL <= 20 mg/L (U) [Mass/Vol] 51 mg/dL Normal [facility] Comment on above: Performed By: #### L AB546 #### [facility] ([facility]) [address] [place] [address] MICROALBUMIN/CREAT ININE (MG/G) IN URINE 318.8 mg/g Creat High 0.0-30.0 [facility] Comment on above: Performed By: #### L AB546 #### [facility] ([facility]) [address] [facility] [place] [address] Office Visiton 09-08-2022 Follow-up visit [id number] Brian Sadler se 1950 Provider Department [place] 09/08/2022 TIAN BRADSHAW [facility] NEPHRO Comprehensiv Family History Problem Relation Age of Onset Other Mother Coronary artery disease Mother Other Mother Other Mother Other Father Hypertension Father Hyperlipidemia Father Other Daughter Family Status - Relation Status Age at Mother Father Daughter Level of Service:65642 PA OFFICE/OUTPATIENT ESTABLISHED LOW MDM 20-29 MIN Reason for Visit and Comments: Follow-up [[id number]] Normal [facility] Refillon 08-05-2022 Refill [id number] Brian Sadler se 1950 Provider Department Center 08/05/2022 GRICELDA GRIGSBY [facility] NEPHRO Comprehensiv Family History Problem Relation Age of Onset Other Mother Coronary artery disease Mother Other Mother Other Mother Other Father Hypertension Father Hyperlipidemia Father Other Daughter Family Status - Relation Status Age at Mother Father Daughter Reason for Visit and Comments: Med Refill [[id number]] [facility] Office Visiton 08-04-2022 Follow-up visit [id number] Brian Sadler se 1950 F Date Provider Department Center 08/04/2022 271-[facility] Family History Problem Relation Age of Onset Other Mother Coronary artery disease Mother Other Mother Other Mother Other Father Hypertension Father Hyperlipidemia Father Other Daughter Family Status - Relation Status Age at Mother Father Daughter Level of Service:27567 PA OFFICE/OUTPATIENT ESTABLISHED SF MDM 10-19 MIN Reason for Visit and Comments: Follow-up [[id number]] - 3 month follow up [facility] Follow-Upon 07-28-2022 Follow-Up [id number] Brian Sadler se 1950 Date Provider Department Center 07/28/2022 JOSE ANGEL LEE PAIN [facility] Family History Problem Relation Age of Onset Other Mother Coronary artery disease Mother Other Mother Other Mother Other Father Hypertension Father Hyperlipidemia Father Other Daughter Family Status - Relation Status Age at Mother Father Daughter Level of Service:12922 PA OFFICE/OUTPATIENT ESTABLISHED LOW MDM 20-29 MIN Reason for Visit and Comments: Follow-up [[id number]] - 2 month follow up [facility] HPon 07-22-2022 [facility] Cardiology Consul t Note [...] kidney disease COPD (chronic obstructive pulmonary disease) ([facility]) Hypertension Myocardial infarction ([facility]) PSH: Past Surgical History: Procedure Laterality Date [...] mg by mouth in the morning. omega 9-sjd-qpl-fish oil 350 mg-235 mg- 90 mg-597 mg [...] the morning.) 60 tablet 2 [DISCONTINUED] rutin/hesp/bioflav/C/her uvo121 (BIOFLEX ORAL) Take 1 tablet by mouth once daily as directed. [DISCONTINUED] spironolactone (Aldac (more content not included)... [facility] Adriel 07-22-2022 NURSNOTE RN educated pt on d/ c instructions. RN encouraged pt to voice any questions or concerns. Pt verbalizes no questions or concerns at this time. Pt was wheeled off of unit with all of belongings. Normal [facility] CBC AUTO DIFFon 07-17-2022 BASO # 0.0 103/ul Normal 0.0-0.1 [facility] Comment on above: Performed By: #### C BC #### [facility] [address] [place] [address] Dr. Eusebia Moralez Basophils/100 WBC (Bld) 0.6 % Normal 0.2-2.0 [facility] Comment on above: Performed By: #### C BC #### [facility] [address] [place] [address] Dr. Eusebia Moralez EO # 0.2 103/ul Normal 0.0-0.7 [facility] Comment on above: Performed By: #### C BC #### [facility] [address] [place] [address] Dr. Eusebia Moralez Eosinophils/100 WBC (Bld) 2.2 % Normal 0.9-7.0 [facility] Comment on above: Performed By: #### C BC #### [facility] [address] [place] [address] Dr. Eusebia Moralez Erythrocyte distribution width (RBC) [Ratio] 13.0 % Normal 11.0-15.0 [facility] Comment on above: Performed By: #### C BC #### [facility] [address] [place] [address] Dr. Eusebia Moralez Hematocrit (Bld) [Volume fraction] 40.5 % Normal 36.0-48.0 [facility] Comment on above: Performed By: #### C BC #### [facility] [address] [place] [address] Dr. Eusebia Moralez Hemoglobin (Bld) [Mass/Vol] 12.7 g/dL Normal 12.0-16.0 [facility] Comment on above: Performed By: #### C BC #### [facility] [address] [place] [address] Dr. Eusebia Moralez IG # 0.02 10e3/ul Normal 0.00-0.03 [facility] Comment on above: Performed By: #### C BC #### [facility] [address] [place] [address] Dr. Eusebia Moralez IG % 0.3 % Normal 0.0-0.5 [facility] Comment on above: Performed By: #### C BC #### [facility] [address] [place] [address] Dr. Eusebia Moralez LYMPH # 1.4 103/ul Normal 1.2-3.8 [facility] Comment on above: Performed By: #### C BC #### [facility] [address] [place] [address] Dr. Eusebia Moralez Lymphocytes/100 WBC (Bld) 19.9 % Critically low 20.5-60.0 [facility] Comment on above: Performed By: #### C BC #### [facility] [address] [place] [address] Dr. Eusebia Moralez MANUAL DIFF REQ NO Normal [facility] Comment on above: Performed By: #### C BC #### [facility] [address] [place] [address] Dr. Eusebia Moralez MCH (RBC) [Entitic mass] 29.1 pg Normal 26.7-34.0 [facility] Comment on above: Performed By: #### C BC #### [facility] [address] [place] [address] Dr. Eusebia Moralez MCHC (RBC) [Mass/Vol] 31.4 g/dL Normal 29.9-35.2 [facility] Comment on above: Performed By: #### C BC #### [facility] [address] [place] [address] Dr. Eusebia Moralez MCV (RBC) [Entitic vol] 92.9 fL Normal 81.0-99.0 [facility] Comment on above: Performed By: #### C BC #### [facility] [address] [place] [address] Dr. Eusebia Moralez MONO # 0.7 103/ul Normal 0.3-0.8 [facility] Comment on above: Performed By: #### C BC #### [facility] [address] [place] [address] Dr. Eusebia Moralez Monocytes/100 WBC (Bld) 9.4 % Normal 1.7-12.0 [facility] Comment on above: Performed By: #### C BC #### [facility] [address] [place] [address] Dr. Eusebia Mroalez NEUT # 4.7 103/ul Normal 1.4-6.5 [facility] Comment on above: Performed By: #### C BC #### [facility] [address] [place] [address] Dr. Eusebia Moralez Neutrophils/100 WBC (Bld) 67.6 % Normal 43.0-75.0 [facility] Comment on above: Performed By: #### C BC #### [facility] [address] [place] [address] Dr. Eusebia Moralez Platelet mean volume (Bld) [Entitic vol] 9.9 fL Normal 9.5-13.5 [facility] Comment on above: Performed By: #### C BC #### [facility] [address] [place] [address] Dr. Eusebia Moralez PLT 218 103/ul Normal 150-450 [facility] Comment on above: Performed By: #### C BC #### [facility] [address] [place] [address] Dr. Eusebia Moralez RBC 4.36 106/ul Normal 4.20-5.40 [facility] Comment on above: Performed By: #### C BC #### [facility] [address] [place] [address] Dr. Eusebia Moralez WBC 6.9 103/ul Normal 4.0-11.0 [facility] Comment on above: Performed By: #### C BC #### [facility] [address] [place] [address] Dr. Eusebia Moralez PROF CHEM 8 (BAS METB)on Anion gap [Moles/Vol] 9.0 mmol/L Normal [facility] Comment on above: Performed By: #### B MP #### [facility] [address] [address] [address] Eusebia Moralez Calcium [Mass/Vol] 9.2 mg/dL Normal 8.5-10.1 [facility] Comment on above: Performed By: #### B MP #### [facility] [address] [address] [address] Eusebia Moralez Chloride [Moles/Vol] 103 mmol/L Normal 98-107 [facility] Comment on above: Performed By: #### B MP #### [facility] [address] [address] [address] Eusebia Moralez CO2 [Moles/Vol] 32.9 mmol/L Critically high 21.0-32.0 [facility] Comment on above: Performed By: #### B MP #### [facility] [address] [address] [address] Eusebia Moralez Creatinine [Mass/Vol] 1.74 mg/dL Critically high 0.55-1.02 [facility] Comment on above: Performed By: #### B MP #### [facility] [address] [address] [address] Eusebia Moralez EGFR-AF OMANI 35 mL/min/1.73m2 Critically low >=60 [facility] Comment on above: Performed By: #### B MP #### [facility] [address] [address] [address] Eusebia Moralez EGFR-NON AF OMANI 29 mL/min/1.73m2 Critically low >=60 [facility] Comment on above: Performed By: #### B MP #### [facility] [address] [address] [address] Eusebia Moralez Glucose [Mass/Vol] 101 mg/dL Normal 74-106 [facility] Comment on above: Performed By: #### B MP #### [facility] [address] [address] [address] Eusebia Moralez Potassium [Moles/Vol] 3.9 mmol/L Normal 3.5-5.1 [facility] Comment on above: Performed By: #### B MP #### [facility] [address] [address] [address] Eusebia Moralez Sodium [Moles/Vol] 141 mmol/L Normal 136-145 [facility] Comment on above: Performed By: #### B MP #### [facility] [address] [address] [address] Eusebia Moralez Urea nitrogen [Mass/Vol] 34.0 mg/dL Critically high 7.0-18.0 [facility] Comment on above: Performed By: #### B MP #### [facility] [address] [address] [address] Eusebia Moralez Urea nitrogen/Creatinin e [Mass ratio] 19.5 mg/mg Normal [facility] Comment on above: Performed By: #### B MP #### [facility] [address] [address] [address] Eusebia Moralez CBC AUTO DIFFon 07-02-2022 BASO # 0.1 103/ul Normal 0.0-0.1 [facility] Comment on above: Performed By: #### C BC ####[facility] [address] [address]DrRadha Moralez Basophils/100 WBC (Bld) 0.7 % Normal 0.2-2.0 [facility] Comment on above: Performed By: #### C BC ####[facility] [address] [address]DrRadha Moralez EO # 0.1 103/ul Normal 0.0-0.7 [facility] Comment on above: Performed By: #### C BC ####[facility] [address] [address]DrRadha Moralez Eosinophils/100 WBC (Bld) 1.8 % Normal 0.9-7.0 [facility] Comment on above: Performed By: #### C BC ####[facility] [address] [id number] Moralez Erythrocyte distribution width (RBC) [Ratio] 13.1 % Normal 11.0-15.0 [facility] Comment on above: Performed By: #### C BC ####[facility] [address] [address]DrRadha Eusebia Moralez Hematocrit (Bld) [Volume fraction] 40.2 % Normal 36.0-48.0 [facility] Comment on above: Performed By: #### C BC ####[facility] [address] [address]DrRadha Eusebia Kirt Hemoglobin (Bld) [Mass/Vol] 12.5 g/dL Normal 12.0-16.0 [facility] Comment on above: Performed By: #### C BC ####[facility] [address] [place], [place] [address]DrRadha Moralez IG # 0.01 10e3/ul Normal 0.00-0.03 [facility] Comment on above: Performed By: #### C BC ####[facility] [address] [place], [place] [address]DrRadha Moralez IG % 0.1 % Normal 0.0-0.5 [facility] Comment on above: Performed By: #### C BC ####[facility] [address] [place], [place] [address]DrRadha Lisadenise Moralez LYMPH # 1.5 103/ul Normal 1.2-3.8 [facility] Comment on above: Performed By: #### C BC ####[facility] [address] [place], [place] [address]DrRadha Moralez Lymphocytes/100 WBC (Bld) 22.6 % Normal 20.5-60.0 [facility] Comment on above: Performed By: #### C BC ####[facility] [address] [address]DrRadha Moralez MANUAL DIFF REQ NO Normal [facility] Comment on above: Performed By: #### C BC ####[facility] [address] [address]DrRadha Moralez MCH (RBC) [Entitic mass] 29.3 pg Normal 26.7-34.0 [facility] Comment on above: Performed By: #### C BC ####[facility] [address] [id number][address] Eusebia Moralez MCHC (RBC) [Mass/Vol] 31.1 g/dL Normal 29.9-35.2 [facility] Comment on above: Performed By: #### C BC ####[facility] [address] [id number][address] Eusebia Moralez MCV (RBC) [Entitic vol] 94.4 fL Normal 81.0-99.0 [facility] Comment on above: Performed By: #### C BC ####[facility] [address] [place], [place] [address]Dr. Eusebia Moralez MONO # 0.6 103/ul Normal 0.3-0.8 [facility] Comment on above: Performed By: #### C BC ####[facility] [address] [place], [place] [address]Dr. Eusebia Moralez Monocytes/100 WBC (Bld) 9.1 % Normal 1.7-12.0 [facility] Comment on above: Performed By: #### C BC ####[facility] [address] [place], [place] [address]Dr. Eusebia Moralez NEUT # 4.4 103/ul Normal 1.4-6.5 [facility] [facility] Comment on above: Performed By: #### C BC ####[facility] Ndevcncibs[address] [place], [place] [address]Dr. Eusebia Moralez Neutrophils/100 WBC (Bld) 65.7 % Normal 43.0-75.0 [facility] Comment on above: Performed By: #### C BC ####[facility] [address] [place], [place] [id number]. Eusebia Moralez Platelet mean volume (Bld) [Entitic vol] 9.6 fL Normal 9.5-13.5 [facility] Comment on above: Performed By: #### C BC ####[facility] Eqvfclnhvu[address] [place], [place] [address]Dr. Eusebia Moralez PLT 204 103/ul Normal 150-450 [facility] Comment on above: Performed By: #### C BC ####[facility] [address] [place] [id number]. Lisadenise Kirt RBC 4.26 106/ul Normal 4.20-5.40 [facility] Comment on above: Performed By: #### C BC ####[facility] [address] [place] [id number]. Eusebia Moralez WBC 6.7 103/ul Normal 4.0-11.0 [facility] Comment on above: Performed By: #### C BC ####[facility] [address] [place] [id number]. Eusebia Moralez PROF CHEM 8 (BAS METB)on Anion gap [Moles/Vol] 11.2 mmol/L Normal [facility] Comment on above: Performed By: #### B MP ####[facility] [address] [place], [place] [address]Dr. Eusebia Moralez Calcium [Mass/Vol] 9.2 mg/dL Normal 8.5-10.1 [facility] Comment on above: Performed By: #### B MP ####[facility] Z[address] [place], [place] [address]Dr. Eusebia Moralez Chloride [Moles/Vol] 109 mmol/L Critically high 98-107 [facility] Comment on above: Performed By: #### B MP ####[facility] [address] [place] [address]Dr. Eusebia Moralez CO2 [Moles/Vol] 27.6 mmol/L Normal 21.0-32.0 [facility] Comment on above: Performed By: #### B MP ####[facility] [address]im[address] [place] [id number]. Eusebia Moralez Creatinine [Mass/Vol] 1.49 mg/dL Critically high 0.55-1.02 [facility] Comment on above: Performed By: #### B MP ####[facility] [address] [place] [address]Dr. Eusebia Moralez EGFR-AF OMANI 42 mL/min/1.73m2 Critically low >=60 [facility] Comment on above: Performed By: #### B MP ####[facility] [address]mt[address] [place] [id number]. Eusebia Moralez EGFR-NON AF OMANI 34 mL/min/1.73m2 Critically low >=60 [facility] Comment on above: Performed By: #### B MP ####[facility] [address]kt[address]be[address] [place] [id number]. Eusebia Kirt Glucose [Mass/Vol] 89 mg/dL Normal 74-106 [facility] Comment on above: Performed By: #### B MP ####[facility] [address]pc[address] [place] [address]Dr. Eusebia Kirt Potassium [Moles/Vol] 4.8 mmol/L Normal 3.5-5.1 [facility] Comment on above: Performed By: #### B MP ####[facility] [address] [place] [address]Dr. Lisadenise Kirt Sodium [Moles/Vol] 143 mmol/L Normal 136-145 [facility] Comment on above: Performed By: #### B MP ####[facility] [address]ome[address] [place] [address]Dr. Eusebia Kirt Urea nitrogen [Mass/Vol] 27.0 mg/dL Critically high 7.0-18.0 [facility] Comment on above: Performed By: #### B MP ####[facility] [address]mon[address] [place] [address]Dr. Lisadenise Kirt Urea nitrogen/Creatinin e [Mass ratio] 18.1 mg/mg Normal [facility] Comment on above: Performed By: #### B MP ####[facility] [address] [place], [place] [address]Dr. Eusebia Moralez CT LUNG CANCER SCREENINGon 04-27-2021 CT LUNG CANCER SCREENING EXAMINATION: CT [...] AMBAR MAYA Date: 2022-02-24 08:15 Normal [facility] PROF CHEM 8 (BAS METB)on Anion gap [Moles/Vol] 9.7 mmol/L Normal [facility] Comment on above: Performed By: #### B MP #### [facility] [address] [address] [address] Eusebia Moralez Calcium [Mass/Vol] 8.8 mg/dL Normal 8.5-10.1 [facility] Comment on above: Performed By: #### B MP #### [facility] [address] [address] [address] Eusebia Moralez Chloride [Moles/Vol] 107 mmol/L Normal 98-107 [facility] Comment on above: Performed By: #### B MP #### [facility] [address] [address] [address] Eusebia Moralez CO2 [Moles/Vol] 29.5 mmol/L Normal 21.0-32.0 [facility] Comment on above: Performed By: #### B MP #### [facility] [address] [address] [address] Eusebia Moralez Creatinine [Mass/Vol] 1.83 mg/dL Critically high 0.55-1.02 [facility] Comment on above: Performed By: #### B MP #### [facility] [address] [address] [address] Eusebia Moralez EGFR-AF OMANI 33 mL/min/1.73m2 Critically low >=60 [facility] Comment on above: Performed By: #### B MP #### [facility] [address] [address] [address] Eusebia Moralez EGFR-NON AF OMANI 27 mL/min/1.73m2 Critically low >=60 [facility] Comment on above: Performed By: #### B MP #### [facility] [address] [address] [address] Eusebia Moralez Glucose [Mass/Vol] 87 mg/dL Normal 74-106 [facility] Comment on above: Performed By: #### B MP #### [facility] [address] [address] [address] Eusebia Moralez Potassium [Moles/Vol] 5.2 mmol/L Critically high 3.5-5.1 [facility] Comment on above: Performed By: #### B MP #### [facility] [address] [address] [address] Eusebia Moralez Sodium [Moles/Vol] 141 mmol/L Normal 136-145 [facility] Comment on above: Performed By: #### B MP #### [facility] [address] [address] [address] Eusebia Moralez Urea nitrogen [Mass/Vol] 37.0 mg/dL Critically high 7.0-18.0 [facility] Comment on above: Performed By: #### B MP #### [facility] [id number] Eusebia Moralez Urea nitrogen/Creatinin e [Mass ratio] 20.2 mg/mg Normal [facility] Comment on above: Performed By: #### B MP #### [facility] [address] [address] [address] Eusebia Moralez NM STRESS/REST MULTIon 01-23 NM STRESS/REST MULTI Patient: VERO SADLER Date: 01/23/2022 : 1950 Gender:F Ordering : DR DEBBIE BHATIA . Admission #: [id number] Family : Order #: [id number] CLICK HERE TO VIEW EXAM RADIOLOGY REPORT [...] Canchola MD on 01/26/2022 at 13:45 Normal [facility] ECHOCARDIO M/2D COMPLETEon 1 03-23-2021 ECHOCARDIO M/2D COMPLETE Patient: VERO SADLER Exam Date: 01/21/2022 : 1950 Gender:F Ordering : DR DEBBIE BHATIA . Admission #: [id number] Family : Order #: [id number] CLICK HERE TO VIEW EXAM ECHOCARDIOGRAM REPORT [...] Salcido M.D. on 01/21/2022 at 09:17 Normal [facility] XR DEXA BONE DENSITYon 01-21 XR [...] by: RAJI CANCHOLA Date: 2022-01-21 10:03 Normal [facility] BNPon 01-14-2022 Natriuretic peptide B (Bld) [Mass/Vol] 834.0 pg/mL Normal <=900.0 [facility] Comment on above: Performed By: #### T SH, BNP, CMP, T7, LIPID ####[facility] [address] [place] [address]DrRadha Moralez CBC AUTO DIFFon 01-14-2022 BASO # 0.0 103/ul Normal 0.0-0.1 [facility] Comment on above: Performed By: #### C BC #### [facility] [address] [place] [address] Dr. Eusebia Moralez Basophils/100 WBC (Bld) 0.4 % Normal 0.2-2.0 [facility] Comment on above: Performed By: #### C BC #### [facility] [address] [place] [address] Dr. Eusebia Moralez EO # 0.1 103/ul Normal 0.0-0.7 [facility] Comment on above: Performed By: #### C BC #### [facility] [address] [place] [address] Dr. Eusebia Moralez Eosinophils/100 WBC (Bld) 1.1 % Normal 0.9-7.0 [facility] Comment on above: Performed By: #### C BC #### [facility] [address] [place] [address] Dr. Eusebia Moralez Erythrocyte distribution width (RBC) [Ratio] 15.0 % Normal 11.0-15.0 [facility] Comment on above: Performed By: #### C BC #### [facility] [address] [place] [address] Dr. Eusebia Moralez Hematocrit (Bld) [Volume fraction] 39.6 % Normal 36.0-48.0 [facility] Comment on above: Performed By: #### C BC #### [facility] [address] [place] [address] Dr. Eusebia Moralez Hemoglobin (Bld) [Mass/Vol] 12.4 g/dL Normal 12.0-16.0 [facility] Comment on above: Performed By: #### C BC #### [facility] [address] [place] [address] Dr. Eusebia Moralez IG # 0.02 10e3/ul Normal 0.00-0.03 [facility] Comment on above: Performed By: #### C BC #### [facility] [address] [place] [address] Dr. Eusebia Moralez IG % 0.3 % Normal 0.0-0.5 [facility] Comment on above: Performed By: #### C BC #### [facility] [address] [place] [address] Dr. Eusebia Moralez LYMPH # 1.3 103/ul Normal 1.2-3.8 [facility] Comment on above: Performed By: #### C BC #### [facility] [address] [place] [address] Dr. Eusebia Moralez Lymphocytes/100 WBC (Bld) 17.9 % Critically low 20.5-60.0 [facility] Comment on above: Performed By: #### C BC #### [facility] [address] [place] [address] Dr. Eusebia Moralez MANUAL DIFF REQ NO Normal [facility] Comment on above: Performed By: #### C BC #### [facility] [address] [place] [address] Dr. Eusebia Moralez MCH (RBC) [Entitic mass] 29.8 pg Normal 26.7-34.0 [facility] Comment on above: Performed By: #### C BC #### [facility] [address] [place] [address] Dr. Eusebia Moralez MCHC (RBC) [Mass/Vol] 31.3 g/dL Normal 29.9-35.2 [facility] Comment on above: Performed By: #### C BC #### [facility] [address] [place] [address] Dr. Eusebia Moralez MCV (RBC) [Entitic vol] 95.2 fL Normal 81.0-99.0 [facility] Comment on above: Performed By: #### C BC #### [facility] [address] [place] [address] Dr. Eusebia Moralez MONO # 0.5 103/ul Normal 0.3-0.8 [facility] Comment on above: Performed By: #### C BC #### [facility] [address] [place] [address] Dr. Eusebia Moralez Monocytes/100 WBC (Bld) 7.0 % Normal 1.7-12.0 [facility] Comment on above: Performed By: #### C BC #### [facility] [address] [address] [address] Eusebia Moralez NEUT # 5.2 103/ul Normal 1.4-6.5 [facility] Comment on above: Performed By: #### C BC #### [facility] [address] [address] [address] Eusebia Moralez Neutrophils/100 WBC (Bld) 73.3 % Normal 43.0-75.0 [facility] Comment on above: Performed By: #### C BC #### [facility] [address] [address] [address] Eusebia Moralez Platelet mean volume (Bld) [Entitic vol] 9.5 fL Normal 9.5-13.5 [facility] Comment on above: Performed By: #### C BC #### [facility] [address] [address] [address] Eusebia Moralez PLT 188 103/ul Normal 150-450 [facility] Comment on above: Performed By: #### C BC #### [facility] [address] [address] [address] Eusebia Moralez RBC 4.16 106/ul Critically low 4.20-5.40 [facility] Comment on above: Performed By: #### C BC #### [facility] [address] [address] [address] Eusebia Moralez WBC 7.0 103/ul Normal 4.0-11.0 [facility] Comment on above: Performed By: #### C BC #### [facility] [address] [address] [address] Eusebia Moralez FREE THYROXINE INDEX T7on FTI 2.45 Normal 1.30-4.50 [facility] Comment on above: Performed By: #### T SH, BNP, CMP, T7, LIPID ####[facility] [address] [place] [address]Dr. Eusebia Moralez T3U 35.0 % Normal 30.0-39.0 [facility] Comment on above: Performed By: #### T SH, BNP, CMP, T7, LIPID ####[facility] [address] [place], [place] [address]YzRadha Moralez T4 [Mass/Vol] 7.00 ug/dL Normal 4.80-13.90 [facility] Comment on above: Performed By: #### T SH, BNP, CMP, T7, LIPID ####[facility] [address] [place], [place] [address]OoRadha Moralez IRONon 01-14-2022 Iron [Mass/Vol] 58.0 ug/dL Normal 50.0-170.0 [facility] Comment on above: Performed By: #### I MONIE #### [facility] [address] [place], [place] [address] Dr. Eusebia Moralez LIPID PROFILEon 01-14-2022 CHOL-HDL RATIO NORM SEE BELOW Normal [facility] Comment on above: Result Comment: 3.3 - 4.4 LOW RISK 4.4 - 7.1 AVERAGE RISK 7.1 - 11.0 MODERATE RISK >11.0 HIGH RISK Performed By: #### T SH, BNP, CMP, T7, LIPID ####[facility] [address] [place] [id number] Moralez Cholesterol [Mass/Vol] 186 mg/dL Normal <=200 [facility] Comment on above: Performed By: #### T SH, BNP, CMP, T7, LIPID ####[facility] [address] [place] [id number] Moralez Cholesterol in HDL [Mass/Vol] 45 mg/dL Normal 40-60 [facility] Comment on above: Performed By: #### T SH, BNP, CMP, T7, LIPID ####[facility] [address] [place] [id number] Moralez Cholesterol in LDL [Mass/Vol] 118.4 mg/dL Normal [facility] Comment on above: Performed By: #### T SH, BNP, CMP, T7, LIPID ####[facility] [address] [place] [id number]. Eusebia Moralez Cholesterol.total/ Cholesterol in HDL [Mass ratio] 4.1 {ratio} Normal [facility] Comment on above: Performed By: #### T SH, BNP, CMP, T7, LIPID ####[facility] [address] [place] [address]DrRadha Moralez HDL NORMAL > or = 60 mg/dl - LO W CARDIOVASCULAR RISK <40 mg/dl - HIGH CARDIOVASCULAR RISK Normal [facility] Comment on above: Performed By: #### T SH, BNP, CMP, T7, LIPID ####[facility] [address] [place] [address]DrRadha Moralez LDL CALC NORMAL SEE BELOW Normal [facility] Comment on above: Result Comment: <100 mg/dl OPTIMAL 100 - 129 mg/dl NEAR OR ABOVE OPTIMAL 130 - 159 mg/dl BORDERLINE HIGH 160 - 189 mg/dl HIGH >190 mg/dl VERY HIGH Performed By: #### T SH, BNP, CMP, T7, LIPID ####[facility] [address] [place] [address]Dr. Eusebia Moralez Triglyceride [Mass/Vol] 113 mg/dL Normal <=150 [facility] Comment on above: Performed By: #### T SH, BNP, CMP, T7, LIPID ####[facility] [address] [place] [address]DrRadha Moralez VLDL CALC 22.6 mg/dL Normal [facility] Comment on above: Performed By: #### T SH, BNP, CMP, T7, LIPID ####[facility] [address] [place] [address]Dr. Eusebia Moralez PROF 14(COMP METB)on 022 Albumin [Mass/Vol] 3.3 g/dL Critically low 3.4-5.0 [facility] Comment on above: Performed By: #### T SH, BNP, CMP, T7, LIPID #### [facility] [address] [place], [place] [address] Dr. Eusebia Moralez Albumin/Globulin [Mass ratio] 0.9 {ratio} Normal [facility] Comment on above: Performed By: #### T SH, BNP, CMP, T7, LIPID #### [facility] [address] [place] [address] Dr. Eusebia Moralez ALP [Catalytic activity/Vol] 81 U/L Normal 46-116 [facility] Comment on above: Performed By: #### T SH, BNP, CMP, T7, LIPID #### [facility] [address] [place] [address] Dr. Eusebia Moralez ALT [Catalytic activity/Vol] 19 U/L Normal 14-59 [facility] Comment on above: Performed By: #### T SH, BNP, CMP, T7, LIPID #### [facility] [address] [place] [address] Dr. Eusebia Moralez Anion gap [Moles/Vol] 12.3 mmol/L Normal [facility] Comment on above: Performed By: #### T SH, BNP, CMP, T7, LIPID #### [facility] [address] [place] [address] Dr. Eusebia Moralez AST [Catalytic activity/Vol] 12 U/L Critically low 15-37 [facility] Comment on above: Performed By: #### T SH, BNP, CMP, T7, LIPID #### [facility] [address] [place] [address] Dr. Eusebia Moralez Bilirubin [Mass/Vol] 0.4 mg/dL Normal 0.2-1.0 [facility] Comment on above: Performed By: #### T SH, BNP, CMP, T7, LIPID #### [facility] [address] [place] [address] Dr. Eusebia Moralez Calcium [Mass/Vol] 8.9 mg/dL Normal 8.5-10.1 [facility] Comment on above: Performed By: #### T SH, BNP, CMP, T7, LIPID #### [facility] [address] [place] [address] Dr. Eusebia Moralez Chloride [Moles/Vol] 106 mmol/L Normal 98-107 [facility] Comment on above: Performed By: #### T SH, BNP, CMP, T7, LIPID #### [facility] [address] [place] [address] Dr. Eusebia Moralez CO2 [Moles/Vol] 27.4 mmol/L Normal 21.0-32.0 [facility] Comment on above: Performed By: #### T SH, BNP, CMP, T7, LIPID #### [facility] [address] [place] [address] Dr. Eusebia Moralez Creatinine [Mass/Vol] 1.51 mg/dL Critically high 0.55-1.02 [facility] Comment on above: Performed By: #### T SH, BNP, CMP, T7, LIPID #### [facility] [address] [place] [address] [address] Eusebia Moralez EGFR-AF OMANI 41 mL/min/1.73m2 Critically low >=60 [facility] Comment on above: Performed By: #### T SH, BNP, CMP, T7, LIPID #### [facility] [address] [place] [address] Dr. Eusebia Moralez EGFR-NON AF OMANI 34 mL/min/1.73m2 Critically low >=60 [facility] Comment on above: Performed By: #### T SH, BNP, CMP, T7, LIPID #### [facility] [address] [place] [address] Dr. Eusebia Moralez Globulin (S) [Mass/Vol] 3.5 g/dL Normal [facility] Comment on above: Performed By: #### T SH, BNP, CMP, T7, LIPID #### [facility] [address] [place] [address] Dr. Eusebia Moralez Glucose [Mass/Vol] 129 mg/dL Critically high 74-106 [facility] Comment on above: Performed By: #### T SH, BNP, CMP, T7, LIPID #### [facility] [address] [place] [address] Dr. Eusebia Moralez Potassium [Moles/Vol] 4.7 mmol/L Normal 3.5-5.1 [facility] Comment on above: Performed By: #### T SH, BNP, CMP, T7, LIPID #### [facility] [address] [place] [address] Dr. Eusebia Moralez Protein [Mass/Vol] 6.8 g/dL Normal 6.4-8.2 [facility] Comment on above: Performed By: #### T SH, BNP, CMP, T7, LIPID #### [facility] [address] [place] [address] [address] Eusebia Moralez Sodium [Moles/Vol] 141 mmol/L Normal 136-145 [facility] Comment on above: Performed By: #### T SH, BNP, CMP, T7, LIPID #### [facility] [address] [place] [address] [address] Eusebia Moralez Urea nitrogen [Mass/Vol] 37.0 mg/dL Critically high 7.0-18.0 [facility] Comment on above: Performed By: #### T SH, BNP, CMP, T7, LIPID #### [facility] [address] [place] [address] [address] Eusebia Moralez Urea nitrogen/Creatinin e [Mass ratio] 24.5 mg/mg Normal [facility] Comment on above: Performed By: #### T SH, BNP, CMP, T7, LIPID #### [facility] [address] [address] [address] Eusebia Moralez TSHon 01-14-2022 TSH 0.068 uIU/mL Critically low 0.358-3.740 [facility] Comment on above: Performed By: #### T SH, BNP, CMP, T7, LIPID ####[facility] [address] [place] [address]Dr. Eusebia Moralez Covid-19 PCR (CVDTBH)on 10-13 SARS-CoV-2 (COVID-19) RNA DEREK+probe Ql (Unsp spec) Not detected Normal NOT DETECTED [facility] Comment on above: Result Comment: This test is not yet approved or cleared by the [place] FDA. When there are no FDA-approved or cleared tests available, and other criteria are met, FDA can make tests available under an emergency access mechanism called an Emergency Use Authorization (EUA). The EUA for this test is supported by the [place] of Health and Human Service's (HHS's) declaration [...] consistent with SARS-CoV-2. Performed By: #### C [facility] ####[facility] [address] [place], [place] [address]Zn. Eusebia Moralez MRI LSPINE WO CONon 10-11-19 MRI [...] by: AMBAR MAYA Date: 2021-10-10 07:29 Normal [facility] Pulmonary Progress Noteo n 09-13-2020 [facility] Pulmonary Progress Note [facility] Pt Name: VERO SADLER [address] MR#: [id number] [place] [address] ACCT: [id number] PROGRESS NOTE- Pulmonary : [facility] Date of Service: 09/13/20 Text NAME: VERO SADLER MR#: [id number] DATE OF SERVICE: 09/13/2020 OUTPATIENT PULMONARY PROGRESS [...] disease, severity unknown. We will try to [facility] Pt Name: VERO SADLER [address] [place] [address] MR#: [id number] [place] [address] ACCT: [id number] PROGRESS NOTE- Pulmonary : [facility] [...] postoperative management if needed. TIM TOSCANO MD DI/MODL/[id number] CC: Dr. Rito Guerrero MD eSi Date and Time Tim Toscano MD Signature on File 09/26/20 1046 Normal [facility] GLYCO HEMOon 08-23-2020 HbA1c (Bld) [Mass fraction] 5.3 % Normal [facility] Comment on above: Result Comment: Milagro vidal Diagnosis HbA1c (%) --------- Diabetic > 6.4 Prediabetes 5.7-6.4 Normal < 5.7 Performed By: #### L 500.69576 #### Test performed at: [address], [place] [address] CBC W/DIFFon 08-22-2020 BASO ABS 0.0 K/uL Normal 0.0-0.2 [facility] Comment on above: Performed By: #### L 200.12728 #### Test performed at: [address] [address] Basophils/100 WBC (Bld) 0.5 % Normal [facility] Comment on above: Performed By: #### L 200.08296 #### Test performed at: [address] [address] EOS ABS 0.1 K/uL Normal 0.0-0.5 [facility] Comment on above: Performed By: #### L 200.69982 #### Test performed at: [address] [address] Eosinophils/100 WBC (Bld) 1.2 % Normal [facility] Comment on above: Performed By: #### L 200.96212 #### Test performed at: [address] [address] Erythrocyte distribution width (RBC) [Ratio] 12.8 % Normal 11.5-14.5 [facility] Comment on above: Performed By: #### L 200.29137 #### Test performed at: [address] [address] Hematocrit (Bld) [Volume fraction] 40.1 % Normal 36.0-48.0 [facility] Comment on above: Performed By: #### L 200.43389 #### Test performed at: [address] [address] Hemoglobin (Bld) [Mass/Vol] 12.4 g/dL Normal 12.0-15.0 [facility] Comment on above: Performed By: #### L 200.03931 #### Test performed at: [place] [address] [place] [address] IG % 0.3 % Normal [facility] Comment on above: Performed By: #### L 200.49882 #### Test performed at: [facility] [address] [place] [address] IG ABS 0.02 K/uL Normal 0-0.05 [facility] Comment on above: Performed By: #### L 200.36855 #### Test performed at: [address] [address] Lymphocytes (Bld) [#/Vol] 1.3 10*3/uL Normal 1.2-3.5 [facility] Comment on above: Performed By: #### L 200.94186 #### Test performed at: [address] [address] Lymphocytes/100 WBC (Bld) 16.9 % Normal [facility] Comment on above: Performed By: #### L 200.87358 #### Test performed at: [address] [address] MCH (RBC) [Entitic mass] 29.0 pg Normal 25.4-34.6 [facility] Comment on above: Performed By: #### L 200.62807 #### Test performed at: [address] [address] MCHC (RBC) [Mass/Vol] 30.9 g/dL Low 31.5-36.5 [facility] Comment on above: Performed By: #### L 200.02336 #### Test performed at: [address] [address] MCV (RBC) [Entitic vol] 93.7 fL Normal 79.0-98.0 [facility] Comment on above: Performed By: #### L 200.36297 #### Test performed at: [place] [address] MONO ABS 0.8 K/uL Normal 0.0-1.0 [facility] Comment on above: Performed By: #### L 200.08855 #### Test performed at: [address] [address] Monocytes/100 WBC (Bld) 9.7 % Normal [facility] Comment on above: Performed By: #### L 200.74872 #### Test performed at: [address] [address] NEUTROPHIL ABS 5.5 K/uL Normal 1.4-6.6 [facility] Comment on above: Performed By: #### L 200.43318 #### Test performed at: [address] [address] Neutrophils/100 WBC (Bld) 71.4 % Normal [facility] Comment on above: Performed By: #### L 200.30430 #### Test performed at: [address] [address] NRBC # 0.000 K/uL Normal 0-0.012 [facility] Comment on above: Performed By: #### L 200.53997 #### Test performed at: [address] [address] NRBC % 0.0 /100 WBC Normal 0-0.2 [facility] Comment on above: Performed By: #### L 200.10137 #### Test performed at: [address] [address] Platelet mean volume (Bld) [Entitic vol] 10.1 fL Normal 8.7-12.4 [facility] Comment on above: Performed By: #### L 200.87969 #### Test performed at: [address] [address] Platelets (Bld) [#/Vol] 236 10*3/uL Normal 140-440 [facility] Comment on above: Performed By: #### L 200.15512 #### Test performed at: [address] [address] RBC (Bld) [#/Vol] 4.28 10*6/uL Normal 3.5-5.5 [facility] Comment on above: Performed By: #### L 200.63379 #### Test performed at: [address] [address] WBC (Bld) [#/Vol] 7.7 10*3/uL Normal 3.9-11.0 [facility] Comment on above: Performed By: #### L 200.89582 #### Test performed at: [address] [address] CHEST PA/AP & LATERAL OR 2 V WSon 08-22-2020 CHEST PA/AP & LATERAL OR 2 VWS STUDY: CHEST PA/AP LATERAL OR 2 VWS; 08/22/2020 2:35 pm INDICATION: COPD. COMPARISON: None. ACCESSION NUMBER(S): [id number] ORDERING CLINICIAN: Ovidio Baez FINDINGS: The lungs are clear without pleural effusion. Borderline cardiomegaly. Otherwise unremarkable mediastinum, eron, and pulmonary vasculature. Thoracic degenerative changes are present. IMPRESSION: No active disease in the chest. Normal [facility] COMP META PANELon 08-22-2020 Albumin [Mass/Vol] 3.4 g/dL Normal 3.4-5.0 [facility] Comment on above: Performed By: #### L 500.65774, L500.59505, L500.11988 #### Test performed at: [address] [address] ALK PHOS TOTAL 88 U/L Normal 45-117 [facility] Comment on above: Performed By: #### L 500.32557, L500.76485, L500.14754 #### Test performed at: [address] [address] ALT [Catalytic activity/Vol] 17 U/L Normal 13-61 [facility] Comment on above: Performed By: #### L 500.44755, L500.77493, L500.65503 #### Test performed at: [address] [address] AST [Catalytic activity/Vol] 12 U/L Low 15-37 [facility] Comment on above: Performed By: #### L 500.31837, L500.09466, L500.68640 #### Test performed at: [address] [address] BILI TOTAL 0.5 mg/dL Normal 0.2-1.0 [facility] Comment on above: Performed By: #### L 500.68502, L500.59302, L500.57096 #### Test performed at: [address] [address] Calcium [Mass/Vol] 9.0 mg/dL Normal 8.5-10.1 [facility] Comment on above: Performed By: #### L 500.02529, L500.84601, L500.81087 #### Test performed at: [address] [address] Chloride [Moles/Vol] 107 mmol/L Normal 98-107 [facility] Comment on above: Performed By: #### L 500.25234, L500.67011, L500.59255 #### Test performed at: [address] [address] CO2 [Moles/Vol] 29 mmol/L Normal 21-32 [facility] Comment on above: Performed By: #### L 500.52124, L500.70535, L500.85742 #### Test performed at: [address] [address] Creatinine [Mass/Vol] 1.280 mg/dL High 0.550-1.020 [facility] Comment on above: Performed By: #### L 500.93920, L500.75791, L500.15971 #### Test performed at: [address] [address] Glucose [Mass/Vol] 90 mg/dL Normal 70-99 [facility] Comment on above: Result Comment: Fast ing GLUCOSE reference range has been updated per (ADA) [place] [employer]'s recommendation. 06/07/2018 Performed By: #### L 500.54039, L500.20474, L500.80351 #### Test performed at: [address] [address] Potassium [Moles/Vol] 4.4 mmol/L Normal 3.5-5.1 [facility] Comment on above: Performed By: #### L 500.55759, L500.25807, L500.08090 #### Test performed at: [address] [address] Protein [Mass/Vol] 6.8 g/dL Normal 6.4-8.2 [facility] Comment on above: Performed By: #### L 500.24342, L500.50016, L500.81834 #### Test performed at: [address] [address] Sodium [Moles/Vol] 142 mmol/L Normal 136-145 [facility] Comment on above: Performed By: #### L 500.27323, L500.48502, L500.71214 #### Test performed at: [address] [address] Urea nitrogen [Mass/Vol] 21 mg/dL High 7-18 [facility] Comment on above: Performed By: #### L 500.44014, L500.18282, L500.64946 #### Test performed at: [place] [id number] GFR ESTIMATEon 08-22-2020 IF AMER 50 Low > 60 [facility] Comment on above: Result Comment: eGFR (Estimated GFR) Units of measure:mL/min/1.73 meters sq. *CALCULATION REVISED 01/01/2015;IDMS-traceable MDRD equation eGFR is derived from the reexpressed MDRD Study equation using the following parameters: serum creatinine, age, gender and race. An eGFR<60 mL/min/1.73m2 for >3 months is consistent with chronic kidney disease. Refer to KDOQI guidelines for clinical interpretation. Performed By: #### L 500.00955, L500.44727, L500.79824 #### Test performed at: [place] [address] IF non-AFR AMER 41 Low > 60 [facility] Comment on above: Performed By: #### L 500.30846, L500.24043, L500.41369 #### Test performed at: [place] [address] TSH ULTRA SENSon 08-22-2020 TSH ULTRA SENS < 0.005 Low 0.358-3.74 [facility] Comment on above: Performed By: #### L 500.12691, L500.64986, L500.56708 #### Test performed at: [place] [address] LUMB SP COMP W FLEX/EXT 6 VW Son 07-23-2020 LUMB SP COMP W FLEX/EXT 6 VWS STUDY: LUMB SP COMP W FLEX/EXT 6 VWS ; 07/23/2020 9:01 am INDICATION: PAIN. COMPARISON: None. ACCESSION NUMBER(S): [id number] ORDERING CLINICIAN: Sacha Guerrero FINDINGS: No fracture [...] of the lumbar spine without instability. Normal [facility] Encounters Encounter Date Encounter Type Care Provider Facility Start: 07-20-2023 End: 07-20-[address] [facility] Start: 07-09-2023 ambulatory JOSE ANGEL MEEHAN [facility] Start: 06-30-2023 End: 06-30-2023 ambulatory IRVIN [facility] Start: 05-31-2023 End: 06-01-[address] [facility] Start: 03-26-2023 ambulatory JOSE ANGEL MEEHAN [facility] Start: 03-23-2023 End: 03-23-2023 ambulatory IRVIN [facility] Start: 02-16-2023 End: 02-16-2023 ambulatory NATALIA [facility] Start: 02-09-2023 End: 02-10-2023 ambulatory NATALIA [facility] Start: 02-01-2023 End: 02-01-2023 ambulatory [facility] Start: 01-20-2023 End: 01-20-[address] [facility] Start: 01-12-2023 End: 01-13-2023 ambulatory JENNIFER [facility] Start: 01-12-2023 End: 01-12-2023 ambulatory [facility] Start: 01-05-2023 End: 01-06-2023 ambulatory NATALIA [facility] Start: 01-05-2023 End: 01-05-[address] [facility] Start: 01-01-2023 End: 01-01-[address] [facility] Start: 12-22-2022 End: 12-22-2022 [facility]: 12-15-2022 End: 12-[facility] [facility] Start: 12-08-2022 ambulatory JOSE ANGEL MEEHAN [facility] Start: 12-02-2022 ambulatory Desmond ANDERS Facility :[facility] Start: 11-30-2022 End: 11-30-2022 [facility] Start: 11-13-2022 ambulatory Desmond ANDERS Facility:[facility] Start: 11-06-2022 End: 11-06-2022 [facility] Start: 10-27-2022 End: 10-27-2022 ambulatory [facility] Start: 10-07-2022 End: 10-08-2022 ambulatory JOSE ANGEL López [facility] Start: 09-24-2022 End: 09-25-[address] [facility] Start: 09-22-2022 ambulatory JOSE ANGEL MEEHAN [facility] Start: 09-08-2022 End: 09-09-2022 ambulatory [facility] Start: 09-08-2022 End: 09-08-[address] [facility] Start: 08-04-2022 End: 08-04-2022 [facility] Start: 07-28-2022 ambulatory JOSE ANGEL MEEHAN [facility] Start: 07-22-2022 End: 07-22-2022 ambulatory [facility] Start: 07-17-2022 End: 07-18-2022 ambulatory IRVIN KWOK Facility:[facility] Start: 07-02-2022 End: 07-03-2022 ambulatory IRVIN KWOK Facility:[facility] Start: 05-25-[address] DEBBIE BHATIA . Facili ty:[facility] Start: 03-09-2022 End: 03-10-[address] DEBBIE [...] . Facility:[facility] Start: 07-28-[address] DEBBIE Garcia Facili ty:[facility] Start: 09-29-2016 End: 09-30-2016 Ambulatory DEFAULT PHYSICIAN Facility:[facility] Payers Date Payer Category Payer Medicare [id number] 1958 Medicare [id number] 1958 Unknown [id number] 1950 Unknown [id number] 2.16.84 [id number] 1950 Unknown [id number] 2.16.84 0.1.819623.3.579.2.593 1950 Unknown [id number] 2.16.84 0.1.002166.3.579.2.593 1951 Unknown [id number] 2.16.84 0.1.945128.3.579.2.593 1951 Unknown [id number] 2.16.84 0.1.230646.3.579.2.593 1951 Unknown [id number] 2.16.84 0.1.100179.3.579.2.593 1951 Unknown [id number] 2.16.84 0.1.999015.3.579.2.593 1951 Unknown [id number] 2.16.84 0.1.785966.3.579.2.593 1951 Unknown [id number] 2.16.84 0.1.971111.3.579.2.593 1951 Unknown [id number] 2.16.84 0.1.782951.3.579.2.593 1951 Unknown [id number] 2.16.84 0.1.319211.3.579.2.593 1951 Unknown [id number] 2.16.84 0.1.149535.3.579.2.593 1950 Unknown [id number] 2.16.84 0.1.261312.3.579.2.593 1950 Unknown [id number] 2.16.84 0.1.604686.3.579.2.593 1950 Unknown [id number] 2.16.8 40.1.495947.3.579.2.727 Unknown Clinical Notes 07-22-2022 to 07-20-2023 Note Date & Type Note Facility 07-20-2023 Note Division of Nephrolo gy Vero Sadler [...] was recently taken off spironolactone by 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 She is on po bumex daily. For [...] no worsening BLE. her BP been fluctuate, her most recent blood work showed K up to 5.8, was not taking her kayexalate neither watching her K carefully. She is on voltaren daily for pain, I discussed again with her that NSAIDs is not good option for pain management and I had this conversation with her in the past. Past Medical History: Diagnosis Date Abnormal ECG Adverse effect of anesthesia heartrate drops after colonoscopy Arthritis Chronic kidney disease COPD (chronic obstructive pulmonary disease) ([facility] Hypertension Myocardial infarction [facility]) Obstructive sleep apnea 10/02/2022 SOBIA=17.7 events/hour; Pranav SaO2=76%; Latvlr=069.0 lbs; BMI=52.7 kg/m2, Home Sleep Apnea Testing on 09/25/[address] [facility] Family History Problem Relation Name Age [...] mouth in the morning. Doesn't take when traveling) 90 tablet 3 carvedilol (Coreg) 12.5 mg tablet Take 1 tablet (12.5 mg) by mouth in the morning and at bedtime. 60 tablet 0 clotrimazole-betamethasone (Lotrisone) cream APPLY SMALL AMOUNT TO AFFECTED AREA EXTERNALLY TWICE A DAY *USE SPARINGLY* diclofenac (Voltaren) 75 mg EC tablet Take 75 mg by mouth in the morning and at bedtime. Do not crush, chew, or split. hydrALAZINE (Apresoline) 100 mg tablet Take 100 mg by mouth in the morning, at noon, and at bedtime. hyoscyamine (Levsin/SL) 0.125 mg SL tablet every 6 (six) hours if needed. levothyroxine (Synthroid, Levoxyl) 100 mcg tablet Take 100 mcg by mouth before breakfast. liothyronine (Cytomel) 25 mcg tablet Take 1 tablet by mouth in the morning. lisinopril 10 mg tablet Take 1 tablet (10 mg) by mouth in the morning. 90 tablet 3 lovastatin (Mevacor) 20 mg tablet Take 20 mg by mouth in the morning. methylcellulose, laxative, (CitruceL Sugar Free) powder Mix 1 tablespoon in 8 oz (240 mL) of cold water. Take by mouth once daily. Increase frequency as needed up to 3 times daily. Start with a low dose and slowly increase to prevent worse bloating. (Patient not taking: Reported on 07/09/2023) 479 g 3 metroNIDAZOLE (Flagyl) 500 mg tablet Take 500 mg by mouth in the morning, afternoon, and at bedtime. omega 2-wri-zbf-fish oil 350 mg-235 mg- 90 mg-597 mg capsule,delayed release(DR/EC) Take 1 capsule by mouth in the morning. pantoprazole (ProtoNix) 40 mg EC tablet TAKE 1 TABLET BY MOUTH ONCE EVERYDAY BEFORE BREAKFAST *DO NOT CRUSH/CHEW/SPLIT* 90 tablet 1 revefenacin (Yupelri) 175 mcg/3 mL nebulizer solution Take 175 mcg by nebulization if needed each day. No current facility-administered medications for this visit. Physical examination: There were no vitals filed for this visit. Gen: Alert, NAD HENT: Neck is supple, no LAD CV: RRNR, no murmurs, no rubs Pulm: Lungs CTA bl GI: Abdomen soft, NT, ND Extr: warm, no edema bl LEs Skin: No rash on exposed skin Neuro: Alert, conversive, nonfocal Laboratory: No results found for this or any previous visit (from the past 168 hour(s)) (more content not included)... [facility] 07-09-2023 Note [facility] Interventional Pain Management SUBJECTIVE: Subjective 07/09/23 CC: Chief Complaint Patient presents with Follow-up F/U S/P TFESI S1 - 30% pain relief Pain Assessment Pain Assessment: 0-10 Pain Score: 7 Pain Type: Chronic pain Pain Location: Back Pain Orientation: Lower Pain Descriptors: Throbbing, Aching Pain Frequency: Constant/continuous Pain Onset: Ongoing Clinical Progression: Gradually worsening Aggravating Factors: Other (Comment) (sitting) Result of Injury: No Work-Related Injury: No Patient's Stated Pain Goal: No pain Pain Interventions: Rest Response to Interventions: F/U S/P TFESI S1 - 20% pain relief 73 year old female here to follow up 05/31/23 Bilateral S1 TFESI 20-30% relief, still functionally limited , standing 10-15 minutes before needing to sit down, denies radicular symptoms, denies bowel or bladder dysfunction. Would like to restart PT now that she has a PPM, prior cardiac issues with hypertention during PT prior to PPM. Per prior note: 73 year old female here to follow [...] since last visit she has seen cardiology travel administrator for [place]. patient reports that overall she [...] further. She was able to walk around [place] which she previously was not able to do without taking long breaks. Reports improved sleep at night. Her back pain is significantly improved laying flat. Patient denies issues with incisions other than some bruising. Steri-Strips are still intact. Denies any fevers chills . Denies any drainage or discharge from incision. Patient reports that she becerra (more content not included)... [facility] 06-01-2023 Note Interventional Pain Management Nursing Note / Nurse Post-Call Note S/p SHANTE TFESI S1 Patient reports pain level 0. Pre procedure pain level 8 on 05/31/23. Denies problems or complications. Reminded of next appointment 07/09/[address] [facility] 03-26-2023 Note [facility] Interventional Pain Management SUBJECTIVE: Subjective 03/26/23 CC: [...] since last visit she has seen cardiology travel administrator for [place]. patient reports that overall she [...] further. She was able to walk around [place] store which she previously was not able [...] plans to dispo (more content not included)... [facility] 03-23-2023 Note [place] [facility] Consul t Note Reason for visit: [...] kidney disease COPD (chronic obstructive pulmonary disease) ([facility] Hypertension Myocardial infarction ([facility]) Obstructive sleep apnea 10/02/2022 SOBIA=17.7 events/hour; Pranav SaO2=76%; Lsxshg=231.0 lbs; BMI=52.7 kg/m2, Home Sleep Apnea Testing on 09/25/[address] [facility] PSH: Past Surgical History: Procedure Laterality [...] on File Prio (more content not included)... [facility] 02-16-2023 Note [facility] Gastroenterolog y Follow-Up Patient [...] 1 year. Stool studies were submitted to [place], no results available. Ongoing altered BMs, however [...] with abdominal pain, bloating, and diarrhea. Sedation: [facility] Attending Physician: Dr. Dario Calderon Correctional Supervisor: Nancy Prado, Fellow Procedure Details: Informed consent [...] and Crohn's disease in her mother. Sedation: [facility] Attending Physician: Dr. Dario Calderon Findings: Poor [...] small external hemorrhoid (more content not included)... [facility] 02-09-2023 Note Patient: Vero boudreaux Procedure Summary Date: 02/09/23 Room / Location: [facility] Endoscopy Anesthesia Start: 1335 Anesthesia Stop: 1424 Procedures: DIAGNOSTIC COLONOSCOPY EGD Diagnosis: Abdominal pain, [...] no known notable events for this encounter. [facility] 02-09-2023 Note Patient: Vero boudreaux Procedure Summary Date: 02/09/23 Room / Location: [facility] Endoscopy Anesthesia Start: 1335 Anesthesia Stop: Procedures: [...] 3 Anesthesia Post [facility] Patient Monitor: direct observation Transport: uneventful Patient condition is: stable [facility] 02-09-2023 Note Patient: Vero boudreaux Procedure Information Date/Time: 02/09/23 1100 Scheduled providers: Dario Calderon MD; Abel Downing MD Procedures: DIAGNOSTIC COLONOSCOPY EGD Location: [facility] Endoscopy Relevant Problems Anesthesia (+) KATIE on [...] Plan discussed with resident. Additional Equipment Requests 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 Do not wear perfume, make-up, nail greek, or lotions on the day of your [...] need to make any changes, please call [phone]. Notify your surgeon if you develop any illness such as a cold, cough, fever, sore throat or vomiting between now and your surgery. Thank you for entrusting us with your care. [facility] Surgical Services Team [facility] 01-20-2023 Note Cardiovascular Medic [facility] SUBJECTIVE Chief Complaint Patient presents [...] sleep apnea 10/02/2022 SOBIA=17.7 events/hour; Pranav SaO2=76%; Tzrrlq=162.0 lbs; BMI=52.7 kg/m2, Home Sleep Apnea Testing on 09/25/[address] [facility] Family History Problem Relation Name Age [...] in the morning., Disp: , Rfl: omega 3-hha-lbg-fish oil 350 mg-235 mg- 90 mg-597 mg capsule,delayed release(DR/EC), Take 1 capsule by mouth in the morning., Disp: , Rfl: revefenacin (Yupelri) 175 mcg/3 mL nebu (more content not included)... [facility] 01-20-2023 Note Patient here for wou nd check s/p PPM placement on 01/[address] Bullock. She presented to [facility] ED yesterday for near-syncope. Said BP was high this morning when she was discharged from the hospital. Chest pressure and palpitations have resolved since getting device. Valdez from [employer] was contacted regarding home monitor. He states everything looked good and no arrhythmias. Review of Systems Constitutional: Positive for diaphoresis and malaise/fatigue. Cardiovascular: Positive for dyspnea on exertion and leg swelling. Respiratory: Positive for snoring. Hematologic/Lymphatic: Bruises/bleeds easily. Musculoskeletal: Positive for back pain, muscle weakness and myalgias. Neurological: Positive for excessive daytime sleepiness and headaches. All other systems reviewed and are negative. [facility] 01-12-2023 Note Indications for perm anent [...] silk suture. They were connected to a [employer] dual-chamber pacemaker pulse generator. This was placed [...] of the upper extremity Jennifer Bullock M.D. [facility] Bottom Finisherwelding machine operator and Pediatrics Director: Cardiac Electrophysiology Program [facility] 01-12-2023 Note Patient: Vero boudreaux Procedure Information Date/Time: 01/12/23 0830 Procedure: Implant PPM - Tachy Newton syndrome, NSVT, symptomatic bradycardia Location: [facility] LONG TERM CARE PHLEBOTOMIST 1 / [facility] (Cath) Providers: Jennifer [...] discussed with patient who. Additional Equipment Requests [facility] 01-05-2023 Note [facility] Gastroenterolog y New Patient [...] Past CLN ~ 3-4 year ago at [facility] in [place]. No records available. Reports history of polyps [...] sleep apnea 10/02/2022 SOBIA=17.7 events/hour; Pranav SaO2=76%; Jfmxwt=251.0 lbs; BMI=52.7 kg/m2, Home Sleep Apnea Testing on 09/25/[address] [facility] Past Surgical History: Past Surgical History: [...] in the m (more content not included)... [facility] 01-05-2023 Note D/W Dr Kwok - EP a nd he agrees that pt would [...] reaction to medications/ or contrast, stroke, . [facility] 01-01-2023 Note Continue coreg 6.25 mg bid Un[facility] 01-01-2023 Note Pt with noted bradyc ardia with heart rates in 40-50's with noted lightheadedness, dizziness, near syncope. 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 She voiced understanding and agreement [facility] 01-01-2023 Note [facility] CARDIOLOGY PROGR ESS [...] mg by mouth in the morning. omega 0-kri-zda-fish oil 350 mg-235 mg- 90 mg-597 mg [...] edema. Left lowe (more content not included)... [facility] 01-01-2023 Note Patient here c/o tita austin in the 40's. She was at PT [...] All other systems reviewed and are negative. [facility] 12-22-2022 Note [facility] Interventional Pain Management SUBJECTIVE: Subjective 12/22/22 CC: [...] since last visit she has seen cardiology travel administrator for [place]. patient reports that overall she [...] further. She was able to walk around [place] store which she previously was not able [...] is still havi (more content not included)... [facility] 12-15-2022 Note Division of Nephrolo gy [...] was recently taken off spironolactone by 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 She is on po bumex daily. For [...] doing fairly well, she denied any CP, PAETL, no worsening BLE. her BP been fluctuate, [...] sleep apnea 10/02/2022 SOBIA=17.7 events/hour; Pranav SaO2=76%; Gnmpgm=859.0 lbs; BMI=52.7 kg/m2, Home Sleep Apnea Testing on 09/25/2022 at [facility] Family History Problem Relation Name Age [...] morning. mometasone (Elocon) 0.1 % cream omega 8-cza-xfl-fish oil 350 mg-235 mg- 90 mg-597 mg [...] results found f (more content not included)... [facility] 12-08-2022 Note [facility] Interventional Pain Management SUBJECTIVE: Subjective 12/08/22 CC: [...] since last visit she has seen cardiology travel administrator for [place]. patient reports that overall she [...] further. She was able to walk around [employer] which she previously was not able to [...] old female ret (more content not included)... [facility] 11-30-2022 Note No concerns as per call back josefa delines [facility] 11-30-2022 Note Patient: Vero boudreaux Procedure Summary Date: 11/30/22 Room / Location: [facility] OPERATING ROOM 02 / [facility] Operating Room Anesthesia Start: 742 Anesthesia [...] per anesthesia protocol. No notable events documented. [facility] 11-30-2022 Note Patient: Vero boudreaux Procedure Information Date/Time: 11/30/22 0730 Procedure: L3-L5 SPINE DECOMPRESSION , USING VERTIFLEX SUPERION INTERSPINOUS SPACER (Spine Lumbar) - C-ARM, Verican, FIRST CASE, REP NOTIFIED 11/18 J Location: [facility] OPERATING ROOM 02 / [facility] Operating Room Surgeons: Jose Angel Meehan [...] Plan discussed with attending. Additional Equipment Requests 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 Do not wear perfume, make-up, nail greek, or lotions on the day of your [...] need to make any changes, please call [phone]. Notify your surgeon if you develop any illness such as a cold, cough, fever, sore throat or vomiting between now and your surgery. Thank you for entrusting us with your care. [facility] Surgical Services Team [facility] 11-06-2022 Note [facility] Interventional Pain Management SUBJECTIVE: Subjective 11/06/22 CC: [...] since last visit she has seen cardiology travel administrator for [place]. patient reports that overall she [...] further. She was able to walk around [employer] which she previously was not able [...] reported as progressively (more content not included)... [facility] 10-27-2022 Note [place] [facility] Consul t Note Reason for visit: [...] kidney disease COPD (chronic obstructive pulmonary disease) ([facility]) Hypertension Myocardial infarction ([facility]) Obstructive sleep apnea 10/02/2022 SOBIA=17.7 events/hour; Pranav SaO2=76%; Boxvlo=359.0 lbs; BMI=52.7 kg/m2, Home Sleep Apnea Testing on 09/25/[address] [facility] PSH: Past Surgical History: Procedure Laterality [...] 1 lovastatin (Mev (more content not included)... [facility] 10-08-2022 Note Subjective s/p RT TF TRACEY L4/5 Patient reports Pain Level 2. Pre-procedure pain level 5 on 10/07/22. Denies complications, side effects, problems, or any questions about discharge instruction. Next appointment on 11/06/[address] [facility] 09-24-2022 Note Pt given verbal and written instructions and demo of HSAT use. Pt to return unit to registration 09/25 [facility] 09-22-2022 Note [facility] Interventional Pain Management SUBJECTIVE: Subjective 09/22/22 CC: [...] since last visit she has seen cardiology travel administrator for [place]. patient reports that overall she [...] further. She was able to walk around [employer] which she previously was not able to [...] prolonged standing, walking (more content not included)... [facility] 09-08-2022 Note Division of Nephrolo gy [...] was recently taken off spironolactone by 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 She is on po bumex daily. For [...] mg by mouth in the morning. omega 5-bww-wga-fish oil 350 mg-235 mg- 90 mg-597 mg [...] creatinine level i (more content not included)... [facility] 08-04-2022 Note [facility] Cardiology Clinic Note Chief Complaint: Patient [...] in the morning., Disp: , Rfl: omega 9-sfu-tva-fish oil 350 mg-235 mg- 90 mg-597 mg [...] Normal exercise st (more content not included)... [facility] 07-28-2022 Note [facility] Interventional Pain Management SUBJECTIVE: Subjective 07/28/22 CC: [...] since last visit she has seen cardiology travel administrator for [place]. patient reports that overall she [...] further. She was able to walk around [employer] which she previously was not able [...] of PT, pain management, Dr. Oleary at [facility], in past. Has had 3 injections, including radiofrequency ablation, with minimal relief Trialed medications: diclofenac Procedures performed previously: lumbar MBB/RFA 11/21/21 - interlaminar lumbar epidural at L4-5 over 80% relief of radicular symptoms, and 50% relief of low back pain 02/18/22 - bilateral lumbar medial branch block L3-4 and L4-5 80% rel (more content not included)... [facility] 07-22-2022 Note COMPREHENSIVE EP FANNY DY PROCEDURE NOTE DATE OF PROCEDURE: 07/22/2021 PERFORMING PHYSICIAN: Dr. Irvin Kwok TURN SUPERVISOR: None INDICATIONS FOR PROCEDURE: 1. History of [...] RFV: 5Fx2 RV CRD2 to His: Aurea Quad/Lyndon, CRD2 Once catheter was in position, [...] symptoms persist. Irvin Kwok MD Cardiac Electrophysiology [facility] 07-22-2022 Note Patient: Vero boudreaux Procedure Information Date/Time: 07/22/22 1230 Procedure: Electrophysiology procedure Location: [facility] LONG TERM CARE PHLEBOTOMIST 1 EP / [facility] VASCULAR LAB (Cath) Providers: rIvin Kwok MD Clinical information reviewed: Allergies Meds OB Status Physical Exam Airway Mallampati: II TM distance: >3 FB Neck ROM: full Cardiovascular Dental Pulmonary Abdominal Anesthesia Plan ASA 2 CSE Anesthetic plan and risks discussed with patient. Use of blood products discussed with patient who. Additional Equipment Requests [facility] Summary Purpose Family History No Family History Records FoundNo Family History Records FoundNo Family History Records FoundNo Family History Records FoundNo Family History Records Found Advance Directives No Advanced Directives Records FoundNo Advanced Directives Records FoundNo Advanced Directives Records FoundNo Advanced Directives Records FoundNo Advanced Directives Records Found Additional Source Comments INFORMATION SOURCE (unrecogn ized section and content) DATE CREATED AUTHOR 09/08/2017 [facility] DATE CREATED AUTHOR AUTHOR'S ORGANIZ ATION 09/27/2020 [facility] DATE CREATED AUTHOR AUTHOR'S ORGANIZ ATION 07/24/2022 Allyssa Ledesma [facility] DATE CREATED AUTHOR AUTHOR'S ORGANIZ ATION 11/21/2022 [facility] DATE CREATED AUTHOR AUTHOR'S ORGANIZ ATION 07/21/2023 [facility] FOR RECORDS PERTAINING TO PATIENTS [...] BE BASED ON THE PRIMARY CLINICAL RECORDS. [employer] provides no warranty or guarantee of the accuracy or completeness of information in this document.
== END 2023-09-06 09:45 | disposition home or self-care (01) ==
LOC: CT 09:44
PROVIDERS: PCP Family Medicine; Visit Provider Internal Medicine
DX: Z87.891 Personal history of nicotine dependence (principal); Z86.16 Personal history of COVID-19; Z87.898 Personal history of other specified conditions
CPT/HCPCS: 71271

== ENCOUNTER 2024-01-23 16:59 | Emergency (ER) | payer MEDICARE, SELFPAY ==
[2024-01-23] VITALS (21 sets, daily range): BP systolic 161–169; BP diastolic 66–69; PULSE 67–80; TEMP 36.8; O2SAT 93–98; BMI 51.4
--- OUTSIDE RECORDS SUMMARY | 2024-01-23 17:05 | XMS_ITS | CCD ---
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 Name Role Phone PHYSICIAN, DEFAULT Unavailable Unavailable PHYSICIAN, DEFAULT Unavailable Unavailable DEBBIE BHATIA Unavailable Unavailable SRIRAM ., DR LEWIS Consulting Unavailable HOY ., DR LEWIS Attending Unavailable HOY ., DR LEWIS Primary Care Unavailable HOY ., DR LEWIS Admitting Unavailable [place], DR RAJI Odonnell Consulting Unavailable HOY ., DR LEWIS Consulting Unavailable HOY ., DR LEWIS Attending Unavailable HOY ., DR LEWIS Primary Care Unavailable HOY ., DR LEWIS Admitting Unavailable HOY ., DR LEWIS Primary Care Unavailable HOY ., DR LEWIS Consulting Unavailable JAMES HURTADOSON Admitting Unavailable CAPO HURTADO Attending Unavailable HOY .DR LEWIS Primary Care Unavailable Ambar Maya Consulting Unavailable CAPO HURTADO Attending Unavailable JAMES HURTADOSON Admitting Unavailable CAPO HURTADO Consulting Unavailable JOSEY KWOK Admitting Unavailable HOLula .DR LEWIS Primary Care Unavailable JOSEY KWOK Consulting Unavailable JOSEY KWOK Attending Unavailable JOSEY KWOK Consulting Unavailable SRIRAM .DR LEWIS Primary Care Unavailable JSOEY KWOK Attending Unavailable JOSEY KWOK Admitting Unavailable HOLula .DR LEWIS Primary Care Unavailable SAMSA ., AMANDA Attending Unavailable SAMSA ., AMANDA Admitting Unavailable SAMSA ., AMANDA Consulting Unavailable HOY .DR LEWIS Primary Care Unavailable JULIANNE .EUN Admitting Unavailable JULIANNE .EUN Attending Unavailable LITO .SOMMER Consulting Unavailable SRIRAM ., DR LEWIS Primary Care Unavailable MISC, DR LOPEZ Admitting Unavailable MISC, DR LOPEZ Attending Unavailable HOLula ., DR LEWIS Primary Care Unavailable SAMSA [...] Unavailable Desmond ANDERS Attending Unavailable JOSE ANGEL MEEHAN. Referring Unavailable MALENFANT, NATALIA Willis Attending Unavaila ble KARLA, JENNIFER Referring Unavailable SHEFALIJOSE ANGEL Quan JRadha Attending Unavailable MALENFANT, NATALIA Willis Referring Unavaila ble DARIO ALARCON Attending Unavailable MALENFANT, NATALIA Willis Referring Unavaila ble JOSEY KWOK Attending Unavailable TIAN FORD Attending Unavailable KARLAJENNIFER Admitting Unavailable KARLAJENNIFER Attending Unavailable COLLETTE HOFFMAN Attending Unavailable JOSE ANGEL MEEHAN J. Referring Unavailable SHEFALIJOSE ANGEL J. Attending Unavailable SHEFALIJOSE ANGEL MORGAN JRadha Referring Unavailable SHEFALIJOSE ANGEL JRadha Attending Unavailable SHEFALIJOSE ANGEL Quan JRadha Attending Unavailable SHEFALIJOSE ANGEL MORGAN JRadha Attending Unavailable TIAN FORD Attending Unavailable MALENFANT, NATALIA Willis Attending Unavaila ble DEBBIE BHATIA Referring Unavailable SHEFALI JOSE ANGEL J. Referring Unavailable SHEFALI, JOSE ANGEL J. Referring Unavailable SHEFALI, JOSE ANGEL J. Admitting Unavailable JOSE ANGEL MEEHAN Attending Unavailable KARLA, JENNIFER Referring Unavailable JOSEY KWOK Referring Unavailable JOSEY KWOK Attending Unavailable CINTIA JACOBO Attending Unavailable KARLAJENNIFER Referring Unavailable Allergies Allergy Classification Reported Allergen(s) Allergy Type Date of Onset Reaction(s) Facility (5 sources) Penicillins; Translations: [PENICILLINS] Drug allergy (disorder) 5 AOF, Unknown Reaction [facility] (1 source) Adhesive Tape Allergy to substance skin rash [facility] Medications Current Medications Medication Drug Class(es) Dates Sig (Normalized) Sig (Original) [id number] 200 actuat albuterol 0.09 mg/actuat metered dose inhaler (2 sources) beta2-Adrenergic Agonist Start: 01-06-2024 take 2.5 mg by inhalation every four to six hours Albuterol Sulfate Active 2.5 MG INHALATION EVERY 4-6 HOURS January 06, 2024 12:00am Start: 01-06-2024 take 1 puff(s) by in halation four times daily Albuterol Sulfate Active 2 PUFF INHALATION Four times daily January 06, 2024 12:00am aspirin 81 mg delayed release oral tablet (1 source) Platelet Aggregation Inhibitor, Nonsteroidal Anti-inflammatory Drug Start: 01-06-2024 Aspirin (Adult Low Dose Aspirin) 81 mg tablet,delayed release (DR/EC) Active 81 MG PO Daily January 06, 2024 12:00am betamethasone 0.5 mg/ml / clotrimazole 10 mg/ml topical cream (1 source) Azole Antifungal, Corticosteroid Start: 01-06-2024 Clotrimazole-Betam ethasone Active APPLIC TOPICAL January 06, 2024 12:00am bumetanide 1 mg oral tablet (1 source) Loop Diuretic Start: 01-06-2024 take 1 mg by mouth once daily Bumetanide Active 1 MG PO Daily January 06, 2024 12:00am calcium carbonate 1500 mg / cholecalciferol 0.01 mg oral tablet (1 source) Vitamin D Start: 01-06-2024 take 2 tablets by mouth once daily in the morning Calcium Carbonate-Vitamin D3 Active 2 TAB PO Every morning January 06, 2024 12:00am carvedilol 25 mg oral tablet (1 source) alpha-Adrenergic Abdiel, beta-Adrenergic Abdiel Start: 01-06-2024 take 12.5 mg by mouth twice daily Carvedilol Active 12.5 MG PO Twice daily January 06, 2024 12:00am citric acid 75 mg/ml / magnesium oxide 21.9 mg/ml / picosulfate sodium 0.0625 mg/ml oral solution (1 source) Calculi Dissolution Agent, Anti-coagulant Start: 01-06-2024 Sod Picosulf-Mag Ox-Citric Ac (Clenpiq) 10 mg-3.5 gram- 12 gram/160 mL solution Active ML PO Twice daily January 06, 2024 12:00am FreeTextSiml at 3pm, 160ml at 9pm the day prior to colonoscopy Orally BID; Note: Source Status: Start; Refills: 0; Qty: 1 Box; Provider: Musa May hydrALAZINE hydrochloride 100 mg oral tablet (1 source) Arteriolar Vasodilator Start: 01-06-2024 take 100 mg by mouth three times daily Hydralazine Active 100 MG PO Three times daily January 06, 2024 12:00am hyoscyamine sulfate 0.125 mg oral tablet (1 source) Start: 01-06-2024 take 0.125 mg by mouth four times daily Hyoscyamine Sulfate Active 0.125 MG PO Four times daily January 06, 2024 12:00am levothyroxine sodium 0.1 mg oral capsule (1 source) l-Thyroxine Start: 01-06-2024 take 100 ug by mouth once daily Levothyroxine Active 100 MCG PO Daily January 06, 2024 12:00am liothyronine (1 source) l-Triiodothyronine Start: 01-06-2024 take 37.5 ug by mouth once daily Liothyronine Active 37.5 MCG PO Daily January 06, 2024 12:00am lisinopril 10 mg oral tablet (1 source) Angiotensin Converting Enzyme Inhibitor Start: 01-06-2024 take 10 mg by mouth once daily Lisinopril Active 10 MG PO Daily January 06, 2024 12:00am lovastatin 20 mg oral tablet (1 source) HMG-CoA Reductase Inhibitor Start: 01-06-2024 take 20 mg by mouth once daily Lovastatin Active 20 MG PO Daily January 06, 2024 12:00am pantoprazole 40 mg delayed release oral tablet (1 source) Proton Pump Inhibitor Start: 01-06-2024 take 40 mg by mouth once daily Pantoprazole Active 40 MG PO Daily January 06, 2024 12:00am traMADol hydrochloride 50 mg oral tablet (1 source) Opioid Agonist Start: 01-06-2024 take 50 mg by mouth twice daily Tramadol Active 50 MG PO Twice daily January 06, 2024 12:00am Problems Active Problems Problem Classification Problem Date Documented Date Episodic/Chronic Cardiac dysrhythmias (6 sources) Supraventricular tachycardia; Translations: [Sick sinus syndrome] Onset: 3 Chronic Chronic kidney disease (3 sources) Chronic kidney disease stage 4; Translations: [Chronic kidney disease, stage 4 (severe)] 01-06-2024 Chronic Chronic kidney disease (2 sources) Chronic kidney disease; Translations: [Chronic kidney disease, stage 3b] Onset: 3 Conduction disorders (2 sources) Presence of cardiac pacemaker; Translations: [Presence of cardiac pacemaker] Onset: 3 Chronic Congestive heart failure; nonhypertensive (3 sources) Acute combined systolic (congestive) and diastolic (congestive) heart failure; Translations: [Unspecified diastolic (congestive) heart failure] Onset: 2 Chronic Disorders of lipid metabolism (2 sources) Hyperlipidemia, unspecified; Translations: [Pure hypercholesterolemia, unspecified] Onset: 2 Chronic Esophageal disorders (2 sources) Gastro-esophageal reflux disease without esophagitis; Translations: [Gastro-esophageal reflux disease without esophagitis] Onset: 3 Chronic Essential hypertension (2 sources) Essential (primary) hypertension; Translations: [Essential (primary) hypertension] Onset: 2 Chronic Fluid and electrolyte disorders (2 sources) Hyperkalemia; Translations: [Hyperkalemia] 01-06-2024 Episodic Hypertension with complications and secondary hypertension (3 sources) Hypertensive heart disease with heart failure; Translations: [Chronic kidney disease due to hypertension] Onset: 2 01-06-2024 Chronic Nutritional deficiencies (2 sources) Vitamin D deficiency, unspecified; Translations: [Vitamin D deficiency, unspecified] Onset: 4 Chronic Osteoporosis (6 sources) Age-related osteoporosis without current pathological fracture; Translations: [Other osteoporosis without current pathological fracture] Onset: 2 Chronic Other diseases of kidney and ureters (1 source) Secondary hyperparathyroidism; Translations: [Secondary hyperparathyroidism of renal origin] 01-06-2024 Chronic Other diseases of kidney and ureters (1 source) Secondary hyperparathyroidism of renal origin; Translations: [Secondary hyperparathyroidism (of renal origin)] 01-06-2024 Chronic Other diseases of veins and lymphatics (1 source) Lymphedema, not elsewhere classified; Translations: [LYMPHEDEMA NOT ELSEWHERE CLASSIFIED] Onset: 2 Chronic Thyroid disorders (1 source) Hypothyroidism, unspecified; Translations: [HYPOTHYROIDISM UNSPECIFIED] Onset: 2 Chronic Unclassified (3 sources) CONTACT W/AND (SUSP) EXPOS COVID-19; Translations: [CONTACT W/AND (SUSP) EXPOS COVID-19] Onset: 2 Unclassified (1 source) COUGH, UNSPECIFIED; Translations: [COUGH, UNSPECIFIED] Onset: 2 Unclassified (1 source) Vertebrogenic low back pain; Translations: [Vertebrogenic low back pain] Onset: 4 Unclassified (2 sources) Other persistent atrial fibrillation; Translations: [Other persistent atrial fibrillation] Onset: 3 Unclassified (1 source) Other ventricular tachycardia; Translations: [Other ventricular tachycardia] Onset: 3 Past or Other Problems Problem Classification Problem [...] object(s), not elsewhere classified, initial encounter; Translations: [[facility] OTH SHRP OB NOT ELSW CLASS INI] [...] 08-12-2021 Episodic Other aftercare (1 source) Other terminal makeup operator (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) drug therapy; Translations: [OTH USP CURRENT DRUG THERAPY] Onset: 08-14-2021 Episodic Other and unspecified benign neoplasm (1 source) Personal history of colonic polyps; Translations: [PERSONAL HISTORY OF COLONIC POLYPS] Onset: 08-14-2021 Episodic Other circulatory disease (1 source) Other [...] Spondylosis; intervertebral disc disorders; other back problems (11 sources) Spinal stenosis, lumbar region with neurogenic claudication; Translations: [Radiculopathy, lumbar region] Onset: 10-09-2021 Episodic Unclassified (1 source) CONTACT W/AND (SUSP) EXPOS COVID-19; Translations: [CONTACT W/AND (SUSP) EXPOS COVID-19] Onset: 10-28-2021 Unclassified (1 source) Vertebrogenic low back pain; Translations: [Vertebrogenic low back pain] Onset: 11-23-2023 Unclassified (1 source) Other ventricular tachycardia; Translations: [Other ventricular tachycardia] Onset: 01-01-2023 Results Test Name Value Interpretation Reference Range Facility MR LUMBAR SPINE WO CONTRASTo n 11-23-2023 MR LUMBAR SPINE WO CONTRAST MR LUMBAR SPINE WO CONTRAST 11/23/2023 12:56 PM INDICATION: Low back pain COMPARISON: Lumbar spine MRI 07/10/2020 TECHNIQUE: Multiplanar multisequence MR images of the lumbar spine without contrast were obtained. FINDINGS: NUMBERING/ALIGNMENT: There are 5 lumbar type vertebrae. There is mild approximately 2 mm retrolisthesis of L3 on L4 and L5 on S1. There is approximately 2 mm of anterolisthesis of L4 and L5. Facet alignment is grossly appropriate. Vertebral body heights are well-maintained. BONE MARROW: Degenerative endplate changes present, most prominent at L3-L4. Bone marrow slightly heterogeneous throughout. T1/T2 bright lesion of the L5 vertebral body, favored to represent hemangioma. SPINAL CORD: Visualized portions of the spinal cord are unremarkable. Conus medullaris tip is at L1. Cauda equina nerve roots are normal in morphology and configuration. SACRUM: Suggestion of small Tarlov cyst present. SOFT TISSUES: Multiple T2 bright renal lesions, statistically likely to represent renal cortical cysts. Atheromatous disease of the abdominal aorta with eccentric plaque. DEGENERATIVE/POSTSURGICA L FINDINGS: Intraspinous device is present at L3-L4 and L4-L5. Moderate degenerative disc disease throughout. Prominent epidural fat throughout. T12-L1: No significant neural foraminal or thecal sac narrowing. L1-L2: No significant neural foraminal or thecal sac narrowing. Mild facet degeneration. L2-L3: Mild to moderate disc osteophyte and disc bulge, eccentric to the left. There is minimal facet degeneration. There is mild spinal canal stenosis. There is mild left neural foraminal narrowing. These findings are similar compared to prior. L3-L4: Mild to moderate disc bulge and facet degeneration as well as mild ligament flavum artery. There is mild to moderate spinal canal stenosis. There is mild to moderate bilateral neural foraminal narrowing. These findings are similar to slightly progressed compared to prior. L4-L5: Mild to moderate disc bulge and facet degeneration as well as mild ligament flavum artery. There is moderate spinal canal stenosis. There is moderate severe right and mild left neural foraminal narrowing. These findings are similar to slightly progressed compared to prior. L5-S1: Mild to moderate disc bulge with small central disc protrusion. There is mild to moderate facet degeneration. There is mild spinal canal stenosis. There is mild to moderate right and moderate left neural foraminal narrowing. These findings are similar to slightly progressed compared to prior. IMPRESSION: Multilevel mild to moderate degenerative changes of lumbar spine as described, similar to slightly progressed compared to prior. Findings most prominent L4-L5 where there is moderate severe right neural foraminal narrowing. Electronically signed: Arnol Cutler MD. [facility] Comment on above: Order Comment: ORDER IN EPIC NURSNOTEon 11-23-2023 SANDIE Coughlin from [employer] prepped pacemaker. Patient verbalizes no issues with device. Monitor hooked up for continuous patient monitoring throughout the scan. Normal [facility] Office Visiton 10-26-2023 Follow-up visit [id number] Brian Sadler se 1950 Date Provider Department Center 10/26/2023 241-JOSEY KWOK LEEANN [facility] Family History Problem Relation Age of Onset Other Mother Coronary artery disease Mother Other Mother Other Mother Other Father Hypertension Father Hyperlipidemia Father Other Daughter Family Status - Relation Status Age at Mother Father Daughter Level of Service:92614 NC OFFICE/OUTPATIENT ESTABLISHED LOW MDM 20 MIN Normal [facility] Office Visiton 07-20-2023 Follow-up visit [id number] SadlerBrian Wick 1950 Date Provider Department Center 07/20/2023 [id number] FORD [facility] NEPHRO Comprehensiv Family History Problem Relation Age of Onset Other Mother Coronary artery disease Mother Other Mother Other Mother Other Father Hypertension Father Hyperlipidemia Father Other Daughter Family Status - Relation Status Age at Mother Father Daughter Level of Service:84404 NC OFFICE/OUTPATIENT ESTABLISHED LOW MDM 20 MIN Reason for Visit and Comments: Follow-up [[id number]] Normal [facility] Follow-Upon 07-09-2023 Follow-Up [id number] Brian Sadler se 1950 F Date Provider Department Center 07/09/2023 JOSE ANGEL LEE [facility] Family History Problem Relation Age of Onset Other Mother Coronary artery disease Mother Other Mother Other Mother Other Father Hypertension Father Hyperlipidemia Father Other Daughter Family Status - Relation Status Age at Mother Father Daughter Level of Service:05292 NC OFFICE/OUTPATIENT ESTABLISHED LOW MDM 20 MIN Reason for Visit and Comments: Follow-up [216077] - F/U S/P TFESI S1 - 30% pain relief Normal [facility] MICROALBUMIN, URINE, RANDOMo n 07-09-2023 Albumin DL <= 20 mg/L (U) [Mass/Vol] 2.3 mg/dL Normal [facility] Comment on above: Performed By: #### L [id number] #### [facility] (BEAKER) [address] [place] [address] Creatinine (U) [Mass/Vol] 142.0 mg/dL Normal 26-299 [facility] Comment on above: Performed By: #### L [id number] #### [facility] (BECoty) [address] [place] [address] Performed By: #### L [id number] ####[facility] (BEAKER)[address] [place] [address] MICROALBUMIN/CREAT ININE (MG/G) IN URINE 16.2 mg/g Creat Normal 0.0-30.0 [facility] Comment on above: Performed By: #### L [id number] #### [facility] [address] [place] [address] PROTEIN, URINE, RANDOMon Protein (U) [Mass/Vol] 16.6 mg/dL Normal [facility] Comment on above: Result Comment: Ther e are no established reference values for random urine specimens. Performed By: #### L [id number] #### [facility] (BEAK[facility]) [address] [place] [address] RENAL FUNCTION PANELon 07-08 Albumin [Mass/Vol] 3.9 g/dL Normal 3.5-5.7 [facility] Comment on above: Performed By: #### L [id number] #### [facility] [address] [place] [address] Anion gap [Moles/Vol] 11 mmol/L Normal 7-20 [facility] Comment on above: Performed By: #### L [id number] #### [facility] ([facility]) [address] [place] [address] CALCIUM (MG/DL) CORRECTED FOR ALBUMIN IN SER/PLAS 9.18 mg/dL Normal [facility] Comment on above: Performed By: #### L [id number] #### [facility] ([facility]) [address] [place] [address] Calcium [Mass/Vol] 9.1 mg/dL Normal 8.6-10.3 [facility] Comment on above: Performed By: #### L [id number] #### [facility] ([facility]) [address] [place] [address] Chloride [Moles/Vol] 109 mmol/L High 98-107 [facility] Comment on above: Performed By: #### L [id number] #### [facility] ([facility] [address] [place] [address] CO2 [Moles/Vol] 25 mmol/L Normal 21-31 [facility] Comment on above: Performed By: #### L [id number] #### [facility] ([facility]) [address] [place] [address] Creatinine [Mass/Vol] 2.24 mg/dL High 0.60-1.20 [facility] Comment on above: Performed By: #### L [id number] #### [facility] ([facility]) [address] [place] [address] FASTING? UNKNOWN Normal [facility] Comment on above: Performed By: #### L [id number] #### [facility] ([facility]) [address] [place] [address] GLOMERULAR FILTRATION RATE ML/MIN/1.73 SQ M.PREDICTED 22.7 mL/min/1.73m*2 Low >60.0 [facility] Comment on above: Result Comment: [facility]'s estimated glomerular filtration rate (eGFR) will no [...] individuals. Performed By: #### L [id number] #### [facility] ([facility]) [address] [place] [address] Glucose [Mass/Vol] 83 mg/dL Normal 70-100 [facility] Comment on above: Performed By: #### L [id number] #### [facility] ([facility]) [address] [place] [address] Magnesium [Mass/Vol] 3.7 mg/dL Normal 2.5-5.0 [facility] Comment on above: Performed By: #### L [id number] #### [facility] ([facility]) [address] [place] [address] Potassium [Moles/Vol] 5.8 mmol/L High 3.5-5.1 [facility] Comment on above: Performed By: #### L [id number] #### [facility] ([facility]) [address] [facility] [place] [address] Sodium [Moles/Vol] 139 mmol/L Normal 136-145 [facility] Comment on above: Performed By: #### L [id number] #### [facility] [address] [facility] [place] [address] Urea nitrogen [Mass/Vol] 46 mg/dL High 7-25 [facility] Comment on above: Performed By: #### L [id number] #### [facility] [address] [place] [address] UREA NITROGEN/CREATININ E (MASS RATIO) IN SER/PLAS 20.5 Normal [facility] Comment on above: Performed By: #### L [id number] #### [facility] ([facility]) [address] [place] [address] TSHon 07-09-2023 THYROTROPIN (MIU/L) IN SER/PLAS BY DETECTION LIMIT <= 0.05 MIU/L 0.03 mIU/L Low 0.34-5.60 [facility] Comment on above: Performed By: #### L [id number] #### [facility] ([facility]) [address] [place] [address] Orders Onlyon 06-22-2023 Orders Only [id number] Brian Sadler se 1950 F Date Provider Department Center 06/22/2023 EMMANUEL BECK [facility] NEPHRO Comprehensiv Family History Problem Relation Age of Onset Other Mother Coronary artery disease Mother Other Mother Other Mother Other Father Hypertension Father Hyperlipidemia Father Other Daughter Family Status - Relation Status Age at Mother Father Daughter Normal [facility] ANESon 05-31-2023 ANES ---- -------- Attestation signed [...] kidney disease COPD (chronic obstructive pulmonary disease) [place] Hypertension Myocardial infarction ([facility]) Obstructive sleep apnea 10/02/2022 SOBIA=17.7 events/hour; Pranav SaO2=76%; Hrkelb=930.0 lbs; BMI=52.7 kg/m2, Home Sleep Apnea Testing on 09/25/2022 at [facility] Principle problems: Patient Active Problem List Diagnosis Date Noted 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 Symptomatic bradycardia 01/01/2023 Other secondary pulmonary hypertension ([facility]) 12/15/2022 KATIE on CPAP 12/15/2022 Nonsustained paroxysmal ventricular tachycardia ([facility]) 11/30/2022 A-fib ([facility]) 04/21/2022 Spinal stenosis of lumbar region with neurogenic claudication 01/30/2022 Lower abdominal pain 01/30/2022 Spondylosis of lumbosacral region without myelopathy or radiculopathy 01/30/2022 Essential hypertension 01/25/2020 Chest pain 07/27/2016 Dyspnea 07/27/2016 Edema 07/27/2016 Fatigue 07/27/2016 Lightheadedness 07/27/2016 Obstructive sleep apnea 10/02/2022 VT (ventricular tachycardia) [place] 04/29/2022 Clinical trial exam 04/23/2022 Allergies: Allergies Allergen Reactions Penicillins Other Yeast infection 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 479 g 3 omega 6-mcy-yge-fish oil 350 mg-235 mg- 90 mg-597 mg [...] exam B (more content not included)... Normal [facility] HPon 05-31-2023 HP ---- -------- Attestation signed [...] kidney disease, COPD (chronic obstructive pulmonary disease) ([facility]), Hypertension, Myocardial infarction ([facility]), and Obstructive sleep apnea (10/02/2022). Surgical History [...] and Crohn's disease in her mother. Sedation: [facility] Attending Physician: Dr. Dario Alarcon Director Of Litigation: Nancy Prado, Fellow Procedure Details Informed consent [...] colon prep. (more content not included)... Normal [facility] HP History Of Present Illness Vero Sadler is a 73 y.o. female presenting with low back pain Past Medical History She has a past medical history of Abnormal ECG, Adverse effect of anesthesia, Arthritis, Chronic kidney disease, COPD (chronic obstructive pulmonary disease) ([facility] [facility]), Hypertension, Myocardial infarction ([facility]), and Obstructive sleep apnea (10/02/2022). Surgical History [...] and Crohn's disease in her mother. Sedation: [facility] Attending Physician: Dr. Dario Alarcon Director Of Litigation: Nancy Prado, Fellow Procedure Details Informed consent [...] not included. Esophagogastroduod (more content not included)... Normal [facility] Prep for Procedureon 024 Prep for Procedure [id number] SadlerBrian se Wick 1950 F Date Provider Department Center 05/24/2023 POONAM SINGLETON MP [facility] Family History Problem Relation Age of Onset Other Mother Coronary artery disease Mother Other Mother Other Mother Other Father Hypertension Father Hyperlipidemia Father Other Daughter Family Status - Relation Status Age at Mother Father Daughter [facility] 36on 04-22-2023 36 Patient contacted an [...] sometimes takes 48 -72 hours for the doctors/SALES TRAINER's to return messages. Apologized that we were not able to meet her needs and voiced that we understand her feelings and decision not to utilized services at this time [facility] 36on 04-19-2023 36 Vero has called, stating she is not feeling well, in Re: recurrent diarrhea /not feeling well and she mention a breathing test they may not work, she is looking for answers to why she is not feeling well in a lot of pain, please advise with patient [phone] ???This phone message was created by the ambulatory float staff. If you need field support engineer follow up regarding this patient, please make your appropriate clinic staff member aware, Thank you??? Normal [facility] Telephoneon 04-19-2023 Telephone [id number] Brian Sadler se 1950 F Date Provider Department Center 04/19/2023 [id number] KUHN [facility] Family History Problem Relation Age of Onset Other Mother Coronary artery disease Mother Other Mother Other Mother Other Father Hypertension Father Hyperlipidemia Father Other Daughter Family Status - Relation Status Age at Mother Father Daughter Normal [facility] Prep for Procedureon 024 Prep for Procedure [id number] Brian Sadler se 1950 F Date Provider Department Center 04/12/2023 LEENA BURK MP [facility] Family History Problem Relation Age of Onset Other Mother Coronary artery disease Mother Other Mother Other Mother Other Father Hypertension Father Hyperlipidemia Father Other Daughter Family Status - Relation Status Age at Mother Father Daughter Normal [facility] Prep for Procedureon 024 Prep for Procedure [id number] Brian Sadler se 1950 F Date Provider Department Center 03/31/2023 JOSE ANGEL LEE MP [facility] Family History Problem Relation Age of Onset Other Mother Coronary artery disease Mother Other Mother Other Mother Other Father Hypertension Father Hyperlipidemia Father Other Daughter Family Status - Relation Status Age at Mother Father Daughter Normal [facility] Follow-Upon 03-26-2023 Follow-Up [id number] Brian Sadler se M 1950 F Date Provider Department Center 03/26/2023 JOSE ANGEL LEE MP PAIN [facility] Family History Problem Relation Age of Onset Other Mother Coronary artery disease Mother Other Mother Other Mother Other Father Hypertension Father Hyperlipidemia Father Other Daughter Family Status - Relation Status Age at Mother Father Daughter Level of Service:19852 NC OFFICE/OUTPATIENT ESTABLISHED LOW MDM 20 MIN () Reason for Visit and Comments: Follow-up [189845] - Physical Therapy only did a couple days of PT because of COPD and chest hurting [facility] Office Visiton 03-23-2023 Follow-up visit [id number] Brian Sadler se 1950 Replaced By [facility] Provider Department Center 03/23/2023 [id number] Moore CARD [facility] Family History Problem Relation Age of Onset Other Mother Coronary artery disease Mother Other Mother Other Mother Other Father Hypertension Father Hyperlipidemia Father Other Daughter Family Status - Relation Status Age at Mother Father Daughter Level of Service:89220 NC OFFICE/OUTPATIENT ESTABLISHED LOW MDM 20 MIN [facility] Letter (Out)on 02-23-2023 Letter (Out) [id number] Brian Sadler se 1950 Provider Department Center 02/23/2023 Severiano-NANCY PRADO MP [facility] Family History Problem Relation Age of Onset Other Mother Coronary artery disease Mother Other Mother Other Mother Other Father Hypertension Father Hyperlipidemia Father Other Daughter Family Status - Relation Status Age at Mother Father Daughter [facility] 36on 02-22-2023 36 Spoke with patient w ho voiced understanding not to complete the MRI at this time due to kidneys. Advised that the patient contact the Endoscopy department to review questions regarding HBT. [facility] 36 ----- Message from Natalia Kuhn [...] we can do the MRE. Thank you. [facility] Orders Onlyon 2023 Orders Only [id number] Brian Sadler se 1950 Provider Department Center 2023 [id number]-YJTLRGMOAPRESTON KUHN*NISHA [facility] Family History Problem Relation Age of Onset Other Mother Coronary artery disease Mother Other Mother Other Mother Other Father Hypertension Father Hyperlipidemia Father Other Daughter Family Status - Relation Status Age at Mother Father Daughter [facility] 36on 02-17-2023 36 Instruction sheet fo r HBT and US order mailed to the patient. I scanned the stool study results into patients chart and sent them into [employer]'s basket. [facility] 36 ----- Message from Natalia Kuhn NP sent at 02/16/2023 7:59 PM EST ----- Gabe Weberher, Do you mind helping mailing her a Hydrogen Breath Test instruction packet and Gall bladder US orders to her house. Do you mind also calling [facility] and requesting all her stool study results from dec or jan. They never faxed us any results. They are important so I can further help her. Thank you so much. I really appreciate your help with this. [facility] Orders Onlyon 02-17-2023 Orders Only [id number] Brian Sadler se Shamika 1950 F Replaced By [facility] Provider Department Chancellor 02/17/2023 [id number], HISTORICAL MP [facility] Family History Problem Relation Age of Onset Other Mother Coronary artery disease Mother Other Mother Other Mother Other Father Hypertension Father Hyperlipidemia Father Other Daughter Family Status - Relation Status Age at Mother Father Daughter [facility] Telemedicineon 02-16-2023 Telemedicine [id number] Brian Sadler se Wick 1950 F Replaced By [facility] Provider Department Center 02/16/2023 [id number]-JOZIYAJIQPRESTON KUHN*NISHA [facility] Family History Problem Relation Age of Onset Other Mother Coronary artery disease Mother Other Mother Other Mother Other Father Hypertension Father Hyperlipidemia Father Other Daughter Family Status - Relation Status Age at Mother Father Daughter Level of Service:39502 NC OFFICE/OUTPATIENT ESTABLISHED HIGH MDM 40-54 MIN [facility] HISTOLOGY - TISSUE EXAMon LAB AP [...] the Clinical Laboratory Improvement Amendments of 1998. [facility] Comment on above: Performed By: #### L [id number] ####[facility] ([facility])[address] [place] [address] LAB AP CASE REPORT Normal [facility] Comment on above: Result Comment: Surg ical Pathology Case: [id number] Authorizing Provider: Dario Alarcon MD Collected: 02/09/2023 1345 Ordering Location: [facility] Received: 02/09/2023 1515 [facility] Endoscopy Pathologist: Jessica Pugh MD Specimens: A) - Small Intestine, Duodenum, r/o celiac B) - Gastric, r/o h pylori C) - Large Intestine, random colon biopsies microscopic colitis Performed By: #### L [id number] ####[facility] ([facility])[address] [place] [address] LAB AP CLINICAL INFORMATION Order Diagnoses [facility] Comment on above: Result Comment: R10. [...] esophagitis present [ICD-10-CM] Performed By: #### L [id number] ####[facility] ([facility])[address] [place] [address] LAB AP GROSS DESCRIPTION [facility] Comment on above: Result Comment: A. S mall Intestine, Duodenum. The specimen is received in formalin labeled Vero Sadler, and r/o celiac . It consists of. 6 whitehead-pink irregular fragments of soft tissue measuring 0.6 x 0.4 x 0.2 cm in aggregate. The specimen is submitted in toto in 1 cassette. Vashti Marlow, Pathologists' Director Of Litigation student Clement Brower, Pathologists' Director Of Litigation B. Gastric. The specimen is received in formalin labeled Vero Sadler, and r/o H. pylori . It consists of 3 whitehead-pink irregular fragments of soft tissue measuring 0.6 x 0.2 x 0.2 cm in aggregate. The specimen is submitted in toto in 1 cassette. Vashti Marlow, Pathologists' Director Of Litigation student Clement Brower, Pathologists' Director Of Litigation C. Large Intestine. The specimen is received in formalin labeled Vero Sadler, and random colon biopsies microscopic colitis . It consists of 8 whitehead-pink irregular fragments of soft tissue measuring 0.9 x 0.6 x 0.2 cm in aggregate. The specimen is submitted in toto in 1 cassette. Vashti Marlow, Pathologists' Director Of Litigation student Clement Brower, Pathologists' Director Of Litigation Performed By: #### L [id number] ####[facility] ([facility])[address] [place] [address] LAB AP MICROSCOPIC DESCRIPTION Microscopic examination performed. [facility] Comment on above: Performed By: #### L [id number] ####[facility] ([facility])[address] [place] [address] LAB AP REPORT FINAL DIAGNOSIS NARRATIVE [facility] Comment on above: Result Comment: A. [...] malignancy is seen. Performed By: #### L [id number] ####[facility] ([facility])[address] [place] [address] [facility] 02-09-2023 ---- -------- Attestation signed by Dario Alarcon [...] father. She had a prior colonoscopy at [facility], which was reportedly normal 3-4 years [...] father. She had a prior colonoscopy at [facility], which was reportedly normal 3-4 years ago. She has never had a prior EGD. PAST MEDICAL, SURGICAL, FAMILY, and SOCIAL HISTORY Past Medical History: Past Medical History: Diagnosis Date Abnormal ECG Adverse effect of anesthesia heartrate drops after colonoscopy Arthritis Chronic kidney disease COPD (chronic obstructive pulmonary disease) ([facility]/HCC) Hypertension Myocardial infarction (CMS/HCC) Obstructive sleep apnea 10/02/2022 SOBIA=17.7 events/hour; Pranav SaO2=76%; Sedxcp=778.0 lbs; BMI=52.7 kg/m2, Home Sleep Apnea Testing on 09/25/2022 at [facility] Past Surgical History: Past Surgical History: Procedure [...] tablet Won (more content not included)... Normal [facility] POCT GLUCOSE METER UNSOLICIT ED RESULTSon 02-09-2023 Glucose [Mass/Vol] 86 mg/dL Normal 70-105 [facility] Comment on above: Order Comment: Waive d Testing in the ED is performed under the ED CLIA certificate #[id number]. Result Comment: acle ment Performed By: #### L [id number] #### [facility] ([facility]) [address] [place] [address] Prep for Procedureon 023 Prep for Procedure [id number] Brian Sadler se 1950 Date Provider Department Chancellor 01/28/2023 DARIO JAVIER [facility] Family History Problem Relation Age of Onset Other Mother Coronary artery disease Mother Other Mother Other Mother Other Father Hypertension Father Hyperlipidemia Father Other Daughter Family Status - Relation Status Age at Mother Father Daughter Normal [facility] Follow-Upon 01-20-2023 Follow-Up [id number] Brian Sadler se 1950 Provider Department Center 01/20/2023 CINTIA NIXON Family History Problem Relation Age of Onset Other Mother Coronary artery disease Mother Other Mother Other Mother Other Father Hypertension Father Hyperlipidemia Father Other Daughter Family Status - Relation Status Age at Mother Father Daughter Level of Service:67987 NC OFFICE/OUTPATIENT ESTABLISHED MOD MDM 30-39 MIN Reason for Visit and Comments: Dizziness [023088] Wound Check [565933] Normal [facility] HPon 01-12-2023 HP History Of Present Illness Vero Sadler is a 72 y.o. female presenting with sick sinus syndrome. Past Medical History She has a past medical history of Abnormal ECG, Arthritis, Chronic kidney disease, COPD (chronic obstructive pulmonary disease) (CMS/HCC), Hypertension, Myocardial infarction (CMS/[facility]), and Obstructive sleep apnea (10/02/2022). Surgical History [...] by mouth in the morning. 01/11/2023 omega 1-xfm-ols-fish oil 350 mg-235 mg- 90 mg-597 mg [...] 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CMS/HCC) Pacemaker Jennifer Bullock MD [facility] NURSNOTEon 01-12-2023 NURSMAGUE RN educated pt on d/ c instructions. RN encouraged pt to voice any questions or concerns. Pt verbalizes no questions or concerns at this time. [facility] SANDIE CHG wipes and betadi ne swabs completed. [facility] Orders Onlyon 01-12-2023 Orders Only [id number] Brian Sadler se 1950 Date Provider Department Center 01/12/2023 1557-HISLazaro NAY [facility] Family History Problem Relation Age of Onset Other Mother Coronary artery disease Mother Other Mother Other Mother Other Father Hypertension Father Hyperlipidemia Father Other Daughter Family Status - Relation Status Age at Mother Father Daughter Normal [facility] Orders Onlyon 01-06-2023 Orders Only [id number] Brian Sadler se M 1950 Date Provider Department Center 01/06/2023 1557-HISNAY Willis [facility] Family History Problem Relation Age of Onset Other Mother Coronary artery disease Mother Other Mother Other Mother Other Father Hypertension Father Hyperlipidemia Father Other Daughter Family Status - Relation Status Age at Mother Father Daughter Normal [facility] Office Visiton 01-05-2023 Follow-up visit [id number] Brian Sadler se 1950 Provider Department Center 01/05/2023 [id number]-KNRLQQISVPRESTON KUHN*MP [facility] Family History Problem Relation Age of Onset Other Mother Coronary artery disease Mother Other Mother Other Mother Other Father Hypertension Father Hyperlipidemia Father Other Daughter Family Status - Relation Status Age at Mother Father Daughter Level of Service:84581 NC OFFICE/OUTPATIENT NEW MODERATE MDM 45-59 MINUTES Reason for Visit and Comments: New Patient [632] Abdominal Pain [906036] - Pt states when she eats she feels pain in her stomach change in bowel habits [Other] Gas [49] Normal [facility] Orders Onlyon 01-05-2023 Orders Only [id number] Brian Sadler se 1950 Provider Department Center 01/05[facility] History Problem Relation Age of Onset Other Mother Coronary artery disease Mother Other Mother Other Mother Other Father Hypertension Father Hyperlipidemia Father Other Daughter Family Status - Relation Status Age at Mother Father Daughter Normal [facility] Office Visiton 01-01-2023 Follow-up visit [id number] Brian Sadler se M 1950 F Date Provider Department Center 01/01/2023 COLLETTE RODRIGUEZ LEE[facility] Family History Problem Relation Age of Onset Other Mother Coronary artery disease Mother Other Mother Other Mother Other Father Hypertension Father Hyperlipidemia Father Other Daughter Family Status - Relation Status Age at Mother Father Daughter Level of Service:42405 NC OFFICE/OUTPATIENT ESTABLISHED MOD MDM 30-39 MIN [facility] Follow-Upon 12-22-2022 Follow-Up [id number] Brian Sadler se 1950 Date Provider Department Center 12/22/2022 JOSE ANGEL LEE MP PAIN Medical [facility]avi Family History Problem Relation Age of Onset Other Mother Coronary artery disease Mother Other Mother Other Mother Other Father Hypertension Father Hyperlipidemia Father Other Daughter Family Status - Relation Status Age at Mother Father Daughter Level of Service:03562 NC POSTOP FOLLOW UP VISIT RELATED TO ORIGINAL PX Reason for Visit and Comments: Follow-up [976938] - Vertiflex at L3-4 and L4-5 [facility] Office Visiton 12-15-2022 Follow-up visit [id number] Brian Sadler se 1950 Provider Department Center 12/15/2022 TIAN BRADSHAW [facility] NEPHRO Comprehensiv Family History Problem Relation Age of Onset Other Mother Coronary artery disease Mother Other Mother Other Mother Other Father Hypertension Father Hyperlipidemia Father Other Daughter Family Status - Relation Status Age at Mother Father Daughter Level of Service:45814 NC OFFICE/OUTPATIENT ESTABLISHED LOW MDM 20-29 MIN Reason for Visit and Comments: Follow-up [156798] [facility] 36on 12-14-2022 36 Patient left a voice mail indicating she has been receiving calls to set up an appointment with her DME ([facility]) to be set up with CPAP. Patient was under the impression she would be meeting with me. Left voicemail with patient explaining that, since [facility] will be providing the equipment, she should have the initial appointment with them. Then, if she has further questions or issues, she can let me know and I will meet further with her. [facility] Follow-Upon 12-08-2022 Follow-Up [id number] Brian Sadler se 1950 Date Provider Department Center 12/08/2022 JOSE ANGEL LEE MP PAIN Medical Pavi Family History Problem Relation Age of Onset Other Mother Coronary artery disease Mother Other Mother Other Mother Other Father Hypertension Father Hyperlipidemia Father Other Daughter Family Status - Relation Status Age at Mother Father Daughter Level of Service:30339 NC POSTOP FOLLOW UP VISIT RELATED TO ORIGINAL PX Reason for Visit and Comments: Follow-up [403747] - one week post op -Vertiflex at L3-4 and L4-5 [facility] HPon 11-30-2022 HP H&P reviewed. The patient was examined and there are no changes to the H&P. [facility] OPNOTEon 11-30-2022 OPNOTE L3-L5 SPINE DECOMPRESSION , USING VERTIFLEX SUPERION INTERSPINOUS SPACER Operative Note Date: 11/30/2022 Location: [facility] Name: Vero Sadler, : 1950, Diagnosis Pre-op Diagnosis * Spinal stenosis of lumbar region with neurogenic claudication [M48.062] Post-op Diagnosis * Spinal stenosis of lumbar region with neurogenic claudication [M48.062] Procedures L3-L5 SPINE DECOMPRESSION , USING VERTIFLEX SUPERION INTERSPINOUS SPACER 52075 - NC INSJ STABLJ DEV W/O DCMPRN LUMBAR SINGLE LEVEL NC INSJ STABLJ DEV W/O DCMPRN LUMBAR SECOND LEVEL [01600] Surgeons * Jose Angel Meehan - Primary Procedure Summary Anesthesia: Monitor Anesthesia Care ASA: III Estimated Blood Loss: minimal Total IV Fluids: See anesthesia record Drains: * None in log * Implants Type Name Action Serial No. SUPERION IDS - 10MM Implanted SUPERION IDS - 12MM Implanted Staff: Collections Rep: Eran Roa RN Scrub Person: Paulette García CST Resident Care Assistant: Deandre Campos CSA Indications: Vero Sadler is [...] Meehan Attestation: (more content not included)... Normal [facility] Orders Onlyon 11-30-2022 Orders Only [id number] Brian Sadler 1950 F Date Provider Department Center 11/30/2022 JOSE ANGEL LEE PAIN Medical [facility]avi Family History Problem Relation Age of Onset Other Mother Coronary artery disease Mother Other Mother Other Mother Other Father Hypertension Father Hyperlipidemia Father Other Daughter Family Status - Relation Status Age at Mother Father Daughter [facility] POCT GLUCOSE METER UNSOLICIT ED RESULTSon 11-30-2022 Glucose [Mass/Vol] 92 mg/dL Normal 70-105 [facility] Comment on above: Order Comment: Waive d Testing in the ED is performed under the ED CLIA certificate #[id number]. Result Comment: asor ia3 Performed By: #### L [id number] #### [facility] ([facility]) [address] [place] [address] Physician Referralon 023 Physician Referral [id number] 2041 [id number]:1 27 Normal [facility] Physician Referralon 023 Physician Referral [id number] 8053 [id number]: 127 Normal [facility] CBC AUTO DIFFon 07-17-2022 BASO # 0.0 103/ul Normal 0.0-0.1 [facility] Comment on above: Performed By: #### C BC #### [facility] [address] [address] [address] Eusebia Moralez Basophils/100 WBC (Bld) 0.6 % Normal 0.2-2.0 [facility] Comment on above: Performed By: #### C BC #### [facility] [address] [place] [address] Dr. Eusebia Moralez EO # 0.2 103/ul Normal 0.0-0.7 [facility] Comment on above: Performed By: #### C BC #### [facility] [address] [place] [address] Dr. Eusebia Moralez Eosinophils/100 WBC (Bld) 2.2 % Normal 0.9-7.0 [facility] Comment on above: Performed By: #### C BC #### [facility] [address] [place] [address] Dr. Eusebia Moralez Erythrocyte distribution width (RBC) [Ratio] 13.0 % Normal 11.0-15.0 [facility] Comment on above: Performed By: #### C BC #### [facility] [address] [place] [address] Dr. Eusebia Moralez Hematocrit (Bld) [Volume fraction] 40.5 % Normal 36.0-48.0 [facility] Comment on above: Performed By: #### C BC #### [facility] [address] [place] [address] Dr. Eusebia Moralez Hemoglobin (Bld) [Mass/Vol] 12.7 g/dL Normal 12.0-16.0 [facility] Comment on above: Performed By: #### C BC #### [facility] [address] [place] [address] Dr. Eusebia Moralez IG # 0.02 10e3/ul Normal 0.00-0.03 [facility] Comment on above: Performed By: #### C BC #### [facility] [address] [place] [address] Dr. Eusebia Moralze IG % 0.3 % Normal 0.0-0.5 [facility] Comment on above: Performed By: #### C BC #### [facility] [address] [place] [address] Dr. Eusebia Moralez LYMPH # 1.4 103/ul Normal 1.2-3.8 [facility] Comment on above: Performed By: #### C BC #### [facility] [address] [place] [address] Dr. Eusebia Moralez Lymphocytes/100 WBC (Bld) 19.9 % Critically low 20.5-60.0 [facility] Comment on above: Performed By: #### C BC #### [facility] [address] [place] [address] Dr. Eusebia Moralez MANUAL DIFF REQ NO Normal [facility] Comment on above: Performed By: #### C BC #### [facility] [address] [place] [address] Dr. Eusebia Moralez MCH (RBC) [Entitic mass] 29.1 pg Normal 26.7-34.0 [facility] Comment on above: Performed By: #### C BC #### [facility] [address] [place] [address] Dr. Eusebia Moralez MCHC (RBC) [Mass/Vol] 31.4 g/dL Normal 29.9-35.2 [facility] Comment on above: Performed By: #### C BC #### [facility] [address] [place] [address] Dr. Eusebia Moralez MCV (RBC) [Entitic vol] 92.9 fL Normal 81.0-99.0 [facility] Comment on above: Performed By: #### C BC #### [facility] [address] [place] [address] Dr. Eusebia Moralez MONO # 0.7 103/ul Normal 0.3-0.8 [facility] Comment on above: Performed By: #### C BC #### [facility] [address] [place] [address] Dr. Eusebia Moralez Monocytes/100 WBC (Bld) 9.4 % Normal 1.7-12.0 [facility] Comment on above: Performed By: #### C BC #### [facility] [address] [place] [address] Dr. Eusebia Moralez NEUT # 4.7 103/ul Normal 1.4-6.5 [facility] Comment on above: Performed By: #### C BC #### [facility] [facility] [address] [place] [address] Dr. Eusebia Moralez Neutrophils/100 WBC (Bld) 67.6 % Normal 43.0-75.0 [facility] Comment on above: Performed By: #### C BC #### [facility] [address] [place] [address] Dr. Eusebia Moralez Platelet mean volume (Bld) [Entitic vol] 9.9 fL Normal 9.5-13.5 [facility] Comment on above: Performed By: #### C BC #### [facility] [address] [place] [address] Dr. Eusebia Moralez PLT 218 103/ul Normal 150-450 [facility] Comment on above: Performed By: #### C BC #### [facility] [address] [place] [address] Dr. Eusebia Moralez RBC 4.36 106/ul Normal 4.20-5.40 [facility] Comment on above: Performed By: #### C BC #### [facility] [address] [place] [address] Dr. Eusebia Moralez WBC 6.9 103/ul Normal 4.0-11.0 [facility] Comment on above: Performed By: #### C BC #### [facility] [address] [place] [address] Dr. Eusebia Moralez PROF CHEM 8 (BAS METB)on Anion gap [Moles/Vol] 9.0 mmol/L Normal [facility] Comment on above: Performed By: #### B MP #### [facility] [address] [place] [address] Dr. Eusebia Moralez Calcium [Mass/Vol] 9.2 mg/dL Normal 8.5-10.1 [facility] Comment on above: Performed By: #### B MP #### [facility] [address] [place] [address] Dr. Eusebia Moralez Chloride [Moles/Vol] 103 mmol/L Normal 98-107 [facility] Comment on above: Performed By: #### B MP #### [facility] [address] [address] [address] Eusebia Moralez CO2 [Moles/Vol] 32.9 mmol/L Critically high 21.0-32.0 [facility] Comment on above: Performed By: #### B MP #### [facility] [address] [address] [address] Eusebia Moralez Creatinine [Mass/Vol] 1.74 mg/dL Critically high 0.55-1.02 [facility] Comment on above: Performed By: #### B MP #### [facility] [address] [address] [address] Eusebia Moralez EGFR-AF GUAMANIAN 35 mL/min/1.73m2 Critically low >=60 [facility] Comment on above: Performed By: #### B MP #### [facility] [address] [address] [address] Eusebia Moralez EGFR-NON AF GUAMANIAN 29 mL/min/1.73m2 Critically low >=60 [facility] Comment on above: Performed By: #### B MP #### [facility] [address] [address] [address] Eusebia Moralez Glucose [Mass/Vol] 101 mg/dL Normal 74-106 [facility] Comment on above: Performed By: #### B MP #### [facility] [address] [address] [address] Eusebia Moralez Potassium [Moles/Vol] 3.9 mmol/L Normal 3.5-5.1 [facility] Comment on above: Performed By: #### B MP #### [facility] [address] [address] [address] Eusebia Moralez Sodium [Moles/Vol] 141 mmol/L Normal 136-145 [facility] Comment on above: Performed By: #### B MP #### [facility] [address] [address] [address] Eusebia Moralez Urea nitrogen [Mass/Vol] 34.0 mg/dL Critically high 7.0-18.0 [facility] Comment on above: Performed By: #### B MP #### [facility] [address] [address] [address] Eusebia Moralez Urea nitrogen/Creatinin e [Mass ratio] 19.5 mg/mg Normal [facility] Comment on above: Performed By: #### B MP #### [facility] [address] [address] [address] Eusebia Moralez CBC AUTO DIFFon 07-02-2022 BASO # 0.1 103/ul Normal 0.0-0.1 [facility] Comment on above: Performed By: #### C BC ####[facility] [address] [id number] Moralez Basophils/100 WBC (Bld) 0.7 % Normal 0.2-2.0 [facility] Comment on above: Performed By: #### C BC ####[facility] [address] [address]Dr. Eusebia Moralez EO # 0.1 103/ul Normal 0.0-0.7 [facility] Comment on above: Performed By: #### C BC ####[facility] [address] [id number]. Eusebia Moralez Eosinophils/100 WBC (Bld) 1.8 % Normal 0.9-7.0 [facility] Comment on above: Performed By: #### C BC ####[facility] [address] [phone] Moralez Erythrocyte distribution width (RBC) [Ratio] 13.1 % Normal 11.0-15.0 [facility] Comment on above: Performed By: #### C BC ####[facility] [address] [phone] Moralez Hematocrit (Bld) [Volume fraction] 40.2 % Normal 36.0-48.0 [facility] Comment on above: Performed By: #### C BC ####[facility] [address] [phone] Moralez Hemoglobin (Bld) [Mass/Vol] 12.5 g/dL Normal 12.0-16.0 [facility] Comment on above: Performed By: #### C BC ####[facility] [address] [address]Dr. Eusebia Moralez IG # 0.01 10e3/ul Normal 0.00-0.03 [facility] Comment on above: Performed By: #### C BC ####[facility] [address] [address]Dr. Eusebia Moralez IG % 0.1 % Normal 0.0-0.5 [facility] Comment on above: Performed By: #### C BC ####[facility] [address] [address]DrRadha Moralez LYMPH # 1.5 103/ul Normal 1.2-3.8 [facility] Comment on above: Performed By: #### C BC ####[facility] [address] [address]DrRadha Moralez Lymphocytes/100 WBC (Bld) 22.6 % Normal 20.5-60.0 [facility] Comment on above: Performed By: #### C BC ####[facility] [address] [address]DrRadha Moralez MANUAL DIFF REQ NO Normal [facility] Comment on above: Performed By: #### C BC ####[facility] [address] [address]Dr. Eusebia Moralez MCH (RBC) [Entitic mass] 29.3 pg Normal 26.7-34.0 [facility] Comment on above: Performed By: #### C BC ####[facility] [address] [address]Dr. Eusebia Moralez MCHC (RBC) [Mass/Vol] 31.1 g/dL Normal 29.9-35.2 [facility] Comment on above: Performed By: #### C BC ####[facility] [address] [address]Dr. Eusebia Moralez MCV (RBC) [Entitic vol] 94.4 fL Normal 81.0-99.0 [facility] Comment on above: Performed By: #### C BC ####[facility] [address] [phone]. Eusebia Moralez MONO # 0.6 103/ul Normal 0.3-0.8 [facility] Comment on above: Performed By: #### C BC ####[facility] [address] [phone]. Eusebia Moralez Monocytes/100 WBC (Bld) 9.1 % Normal 1.7-12.0 [facility] Comment on above: Performed By: #### C BC ####[facility] [address] [phone]. Eusebia Moralez NEUT # 4.4 103/ul Normal 1.4-6.5 [facility] Comment on above: Performed By: #### C BC ####[facility] [address] [place], [place] [address]Dr. Eusebia Moralez Neutrophils/100 WBC (Bld) 65.7 % Normal 43.0-75.0 [facility] Comment on above: Performed By: #### C BC ####[facility] [address] [place], [place] [address]Dr. Eusebia Moralez Platelet mean volume (Bld) [Entitic vol] 9.6 fL Normal 9.5-13.5 [facility] Comment on above: Performed By: #### C BC ####[facility] [address] [place], [place] [address]Dr. Eusebia Moralez PLT 204 103/ul Normal 150-450 [facility] Comment on above: Performed By: #### C BC ####[facility] [address] [place], [place] [address]Dr. Eusebia Moralez RBC 4.26 106/ul Normal 4.20-5.40 [facility] Comment on above: Performed By: #### C BC ####[facility] [address] [phone]. Eusebia Moralez WBC 6.7 103/ul Normal 4.0-11.0 [facility] Comment on above: Performed By: #### C BC ####[facility] [address] [phone]. Eusebia Moralez PROF CHEM 8 (BAS METB)on Anion gap [Moles/Vol] 11.2 mmol/L Normal [facility] Comment on above: Performed By: #### B MP ####[facility] [address] [address]Dr. Eusebia Moralez Calcium [Mass/Vol] 9.2 mg/dL Normal 8.5-10.1 [facility] Comment on above: Performed By: #### B MP ####[facility] [address] [address]Dr. Eusebia Moralez Chloride [Moles/Vol] 109 mmol/L Critically high 98-107 [facility] Comment on above: Performed By: #### B MP ####[facility] [address] [place], [place] [address]Dr. Eusebia Moralez CO2 [Moles/Vol] 27.6 mmol/L Normal 21.0-32.0 [facility] Comment on above: Performed By: #### B MP ####[facility] [address] [place], [place] [address]Dr. Eusebia Moralez Creatinine [Mass/Vol] 1.49 mg/dL Critically high 0.55-1.02 [facility] Comment on above: Performed By: #### B MP ####[facility] [address] [place], [place] [address]Dr. Eusebia Moralez EGFR-AF GUAMANIAN 42 mL/min/1.73m2 Critically low >=60 [facility] Comment on above: Performed By: #### B MP ####[facility] [address] [phone]. Eusebia Moralez EGFR-NON AF GUAMANIAN 34 mL/min/1.73m2 Critically low >=60 [facility] Comment on above: Performed By: #### B MP ####[facility] [address] [place], [place] [address]Dr. Eusebia Moralez Glucose [Mass/Vol] 89 mg/dL Normal 74-106 [facility] Comment on above: Performed By: #### B MP ####[facility] [address] [place], [place] [address]Ns. Eusebia Moralez Potassium [Moles/Vol] 4.8 mmol/L Normal 3.5-5.1 [facility] Comment on above: Performed By: #### B MP ####[facility] [address] [phone]. Eusebia Moralez Sodium [Moles/Vol] 143 mmol/L Normal 136-145 [facility] Comment on above: Performed By: #### B MP ####[facility] [address] [place], [place] [address]Lt. Eusebia Moralez Urea nitrogen [Mass/Vol] 27.0 mg/dL Critically high 7.0-18.0 [facility] Comment on above: Performed By: #### B MP ####[facility] [address] [address]Dr. Eusebia Moralez Urea nitrogen/Creatinin e [Mass ratio] 18.1 mg/mg Normal [facility] Comment on above: Performed By: #### B MP ####[facility] [address] [phone]. Eusebia Moralez CT LUNG CANCER SCREENINGon 1 04-27-2021 CT [...] AMBAR MAYA Date: 2022-02-24 08:15 Normal [facility] PROF CHEM 8 (BAS METB)on Anion gap [Moles/Vol] 9.7 mmol/L Normal [facility] Comment on above: Performed By: #### B MP #### [facility] [address] [address] [address] Eusebia Moralez Calcium [Mass/Vol] 8.8 mg/dL Normal 8.5-10.1 [facility] Comment on above: Performed By: #### B MP #### [facility] [address] [address] [address] Eusebia Moralez Chloride [Moles/Vol] 107 mmol/L Normal 98-107 [facility] Comment on above: Performed By: #### B MP #### [facility] [address] [address] [address] Eusebia Moralez CO2 [Moles/Vol] 29.5 mmol/L Normal 21.0-32.0 [facility] Comment on above: Performed By: #### B MP #### [facility] [address] [address] [address] Eusebia Moralez Creatinine [Mass/Vol] 1.83 mg/dL Critically high 0.55-1.02 [facility] Comment on above: Performed By: #### B MP #### [facility] [address] [address] [address] Eusebia Moralez EGFR-AF GUAMANIAN 33 mL/min/1.73m2 Critically low >=60 [facility] Comment on above: Performed By: #### B MP #### [facility] [address] [address] [address] Eusebia Moralez EGFR-NON AF GUAMANIAN 27 mL/min/1.73m2 Critically low >=60 [facility] Comment on above: Performed By: #### B MP #### [facility] [address] [address] [address] Eusebia Moralez Glucose [Mass/Vol] 87 mg/dL Normal 74-106 [facility] Comment on above: Performed By: #### B MP #### [facility] [id number] [address] Eusebia Moralez Potassium [Moles/Vol] 5.2 mmol/L Critically high 3.5-5.1 [facility] Comment on above: Performed By: #### B MP #### [facility] [address] [address] [address] Eusebia Moralez Sodium [Moles/Vol] 141 mmol/L Normal 136-145 [facility] Comment on above: Performed By: #### B MP #### [facility] [address] [address] [address] Eusebia Moralez Urea nitrogen [Mass/Vol] 37.0 mg/dL Critically high 7.0-18.0 [facility] Comment on above: Performed By: #### B MP #### [facility] [address] [address] [address] Eusebia Moralez Urea nitrogen/Creatinin e [Mass ratio] 20.2 mg/mg Normal [facility] Comment on above: Performed By: #### B MP #### [facility] [address] [address] [address] Eusebia Moralez NM STRESS/REST MULTIon 01-23 NM STRESS/REST MULTI Patient: VERO SADLER Exam Date: 01/23/2022 : 1950 Gender:F Ordering : DR DEBBIE BHATIA . Admission #: [id number] Family : Order #: [id number] CLICK HERE TO VIEW EXAM RADIOLOGY REPORT [...] Canchola MD on 01/26/2022 at 13:45 Normal [facility] ECHOCARDIO M/2D COMPLETEon 1 03-23-2021 ECHOCARDIO M/2D COMPLETE Patient: VERO SADLER Exam Date: 01/21/2022 : 1950 Gender:F Ordering : DR DEBBIE BHATIA . Admission #: [id number] Family : Order #: [id number] CLICK HERE TO VIEW EXAM ECHOCARDIOGRAM REPORT [...] Salcido M.D. on 01/21/2022 at 09:17 Normal [facility] XR DEXA BONE DENSITYon 01-21 XR [...] by: RAJI CANCHOLA Date: 2022-01-21 10:03 Normal [facility] BNPon 01-14-2022 Natriuretic peptide B (Bld) [Mass/Vol] 834.0 pg/mL Normal <=900.0 [facility] Comment on above: Performed By: #### T SH, BNP, CMP, T7, LIPID ####[facility] [address] [address]Dr. Eusebia Moarlez CBC AUTO DIFFon 01-14-2022 BASO # 0.0 103/ul Normal 0.0-0.1 [facility] Comment on above: Performed By: #### C BC #### [facility] [address] [address] [address] Eusebia Moralez Basophils/100 WBC (Bld) 0.4 % Normal 0.2-2.0 [facility] Comment on above: Performed By: #### C BC #### [facility] [address] [address] [address] Eusebia Moralez EO # 0.1 103/ul Normal 0.0-0.7 [facility] Comment on above: Performed By: #### C BC #### [facility] [address] [place] [address] Dr. Eusebia Moralez Eosinophils/100 WBC (Bld) 1.1 % Normal 0.9-7.0 [facility] Comment on above: Performed By: #### C BC #### [facility] [address] [place] [address] Dr. Eusebia Moralez Erythrocyte distribution width (RBC) [Ratio] 15.0 % Normal 11.0-15.0 [facility] Comment on above: Performed By: #### C BC #### [facility] [address] [place] [address] Dr. Eusebia Moralez Hematocrit (Bld) [Volume fraction] 39.6 % Normal 36.0-48.0 [facility] Comment on above: Performed By: #### C BC #### [facility] [address] [place] [address] Dr. Eusebia Moralez Hemoglobin (Bld) [Mass/Vol] 12.4 g/dL Normal 12.0-16.0 [facility] Comment on above: Performed By: #### C BC #### [facility] [address] [place] [address] Dr. Eusebia Moralez IG # 0.02 10e3/ul Normal 0.00-0.03 [facility] Comment on above: Performed By: #### C BC #### [facility] [address] [place] [address] Dr. Eusebia Moralez IG % 0.3 % Normal 0.0-0.5 [facility] Comment on above: Performed By: #### C BC #### [facility] [address] [place] [address] Dr. Eusebia Moralez LYMPH # 1.3 103/ul Normal 1.2-3.8 [facility] Comment on above: Performed By: #### C BC #### [facility] [address] [place] [address] Dr. Eusebia Moralez Lymphocytes/100 WBC (Bld) 17.9 % Critically low 20.5-60.0 [facility] Comment on above: Performed By: #### C BC #### [facility] [address] [place] [address] Dr. Eusebia Moralez MANUAL DIFF REQ NO Normal [facility] Comment on above: Performed By: #### C BC #### [facility] [address] [place] [address] Dr. Eusebia Moralez MCH (RBC) [Entitic mass] 29.8 pg Normal 26.7-34.0 [facility] Comment on above: Performed By: #### C BC #### [facility] [address] [place] [address] Dr. Eusebia Moralez MCHC (RBC) [Mass/Vol] 31.3 g/dL Normal 29.9-35.2 [facility] Comment on above: Performed By: #### C BC #### [facility] [address] [place] [address] Dr. Eusebia Moralez MCV (RBC) [Entitic vol] 95.2 fL Normal 81.0-99.0 [facility] Comment on above: Performed By: #### C BC #### [facility] [address] [place] [address] Dr. Eusebia Moralez MONO # 0.5 103/ul Normal 0.3-0.8 [facility] Comment on above: Performed By: #### C BC #### [facility] [address] [place] [address] Dr. Eusebia Moralez Monocytes/100 WBC (Bld) 7.0 % Normal 1.7-12.0 [facility] Comment on above: Performed By: #### C BC #### [facility] [address] [place] [address] Dr. Eusebia Moralez NEUT # 5.2 103/ul Normal 1.4-6.5 [facility] Comment on above: Performed By: #### C BC #### [facility] [address] [place] [address] Dr. Eusebia Moralez Neutrophils/100 WBC (Bld) 73.3 % Normal 43.0-75.0 [facility] Comment on above: Performed By: #### C BC #### [facility] [address] [address] [address] Eusebia Moralez Platelet mean volume (Bld) [Entitic vol] 9.5 fL Normal 9.5-13.5 [facility] Comment on above: Performed By: #### C BC #### [facility] [address] [address] [address] Eusebia Moralez PLT 188 103/ul Normal 150-450 [facility] Comment on above: Performed By: #### C BC #### [facility] [address] [address] [address] Eusebia Moralez RBC 4.16 106/ul Critically low 4.20-5.40 [facility] Comment on above: Performed By: #### C BC #### [facility] [address] [address] [address] Eusebia Moralez WBC 7.0 103/ul Normal 4.0-11.0 [facility] Comment on above: Performed By: #### C BC #### [facility] [address] [address] [address] Eusebia Moralez FREE THYROXINE INDEX T7on FTI 2.45 Normal 1.30-4.50 [facility] Comment on above: Performed By: #### T SH, BNP, CMP, T7, LIPID ####[facility] [address] [place] [id number]. Eusebia Moralez T3U 35.0 % Normal 30.0-39.0 [facility] Comment on above: Performed By: #### T SH, BNP, CMP, T7, LIPID ####[facility] [address] [place] [id number]. Eusebia Moralez T4 [Mass/Vol] 7.00 ug/dL Normal 4.80-13.[address] [facility] Comment on above: Performed By: #### T SH, BNP, CMP, T7, LIPID ####[facility] [address] [place] [id number]. Eusebia Moralez IRONon 01-14-2022 Iron [Mass/Vol] 58.0 ug/dL Normal 50.0-170.0 [facility] Comment on above: Performed By: #### I MONIE #### [facility] [address] [place], [place] [address] Dr. Eusebia Moralez LIPID PROFILEon 01-14-2022 CHOL-HDL RATIO NORM SEE BELOW Normal [facility] Comment on above: Result Comment: 3.3 - 4.4 LOW RISK 4.4 - 7.1 AVERAGE RISK 7.1 - 11.0 MODERATE RISK >11.0 HIGH RISK Performed By: #### T SH, BNP, CMP, T7, LIPID ####[facility] [address] [place] [id number]. Eusebia Morlaez Cholesterol [Mass/Vol] 186 mg/dL Normal <=200 [facility] Comment on above: Performed By: #### T SH, BNP, CMP, T7, LIPID ####[facility] [address] [place] [address]DrRadha Moralez Cholesterol in HDL [Mass/Vol] 45 mg/dL Normal 40-60 [facility] Comment on above: Performed By: #### T SH, BNP, CMP, T7, LIPID ####[facility] [address] [place] [id number]. Eusebia Moralez Cholesterol in LDL [Mass/Vol] 118.4 mg/dL Normal [facility] Comment on above: Performed By: #### T SH, BNP, CMP, T7, LIPID ####[facility] [address] [place] [id number]. Eusebia Moralez Cholesterol.total/ Cholesterol in HDL [Mass ratio] 4.1 {ratio} Normal [facility] Comment on above: Performed By: #### T SH, BNP, CMP, T7, LIPID ####[facility] [address] [place] [id number]. Eusebia Moralez HDL NORMAL > or = 60 mg/dl - LO W CARDIOVASCULAR RISK <40 mg/dl - HIGH CARDIOVASCULAR RISK Normal [facility] Comment on above: Performed By: #### T SH, BNP, CMP, T7, LIPID ####[facility] [address] [place] [phone]. Eusebia Moralez LDL CALC NORMAL SEE BELOW Normal [facility] Comment on above: Result Comment: <100 mg/dl OPTIMAL 100 - 129 mg/dl NEAR OR ABOVE OPTIMAL 130 - 159 mg/dl BORDERLINE HIGH 160 - 189 mg/dl HIGH >190 mg/dl VERY HIGH Performed By: #### T SH, BNP, CMP, T7, LIPID ####[facility] [address] [place] [phone] Moralez Triglyceride [Mass/Vol] 113 mg/dL Normal <=150 [facility] Comment on above: Performed By: #### T SH, BNP, CMP, T7, LIPID ####[facility] [address] [place] [address]DrRadha Moralez VLDL CALC 22.6 mg/dL Normal [facility] Comment on above: Performed By: #### T SH, BNP, CMP, T7, LIPID ####[facility] [address] [place] [address]Dr. Eusebia Moralez PROF 14(COMP METB)on 022 Albumin [Mass/Vol] 3.3 g/dL Critically low 3.4-5.0 [facility] Comment on above: Performed By: #### T SH, BNP, CMP, T7, LIPID #### [facility] [address] [address] [address] Eusebia Moralez Albumin/Globulin [Mass ratio] 0.9 {ratio} Normal [facility] Comment on above: Performed By: #### T SH, BNP, CMP, T7, LIPID #### [facility] [address] [place] [address] [address] Eusebia Moralez ALP [Catalytic activity/Vol] 81 U/L Normal 46-116 [facility] Comment on above: Performed By: #### T SH, BNP, CMP, T7, LIPID #### [facility] [address] [address] [address] Eusebia Moralez ALT [Catalytic activity/Vol] 19 U/L Normal 14-59 [facility] Comment on above: Performed By: #### T SH, BNP, CMP, T7, LIPID #### [facility] [address] [address] [address] Eusebia Moralez Anion gap [Moles/Vol] 12.3 mmol/L Normal [facility] Comment on above: Performed By: #### T SH, BNP, CMP, T7, LIPID #### [facility] [address] [address] [address] Eusebia Moralez AST [Catalytic activity/Vol] 12 U/L Critically low 15-37 [facility] Comment on above: Performed By: #### T SH, BNP, CMP, T7, LIPID #### [facility] [address] [address] [address] Eusebia Moralez Bilirubin [Mass/Vol] 0.4 mg/dL Normal 0.2-1.0 [facility] Comment on above: Performed By: #### T SH, BNP, CMP, T7, LIPID #### [facility] [address] [place] [address] Dr. Eusebia Moralez Calcium [Mass/Vol] 8.9 mg/dL Normal 8.5-10.1 [facility] Comment on above: Performed By: #### T SH, BNP, CMP, T7, LIPID #### [facility] [address] [address] [address] Eusebia Moralez Chloride [Moles/Vol] 106 mmol/L Normal 98-107 [facility] Comment on above: Performed By: #### T SH, BNP, CMP, T7, LIPID #### [facility] [address] [address] [address] Eusebia Moralez CO2 [Moles/Vol] 27.4 mmol/L Normal 21.0-32.0 [facility] Comment on above: Performed By: #### T SH, BNP, CMP, T7, LIPID #### [facility] [address] [place] [address] Dr. Eusebia Moralez Creatinine [Mass/Vol] 1.51 mg/dL Critically high 0.55-1.02 [facility] Comment on above: Performed By: #### T SH, BNP, CMP, T7, LIPID #### [facility] [address] [place] [address] Dr. Eusebia Moralez EGFR-AF GUAMANIAN 41 mL/min/1.73m2 Critically low >=60 [facility] Comment on above: Performed By: #### T SH, BNP, CMP, T7, LIPID #### [facility] [address] [place] [address] Dr. Eusebia Moralez EGFR-NON AF GUAMANIAN 34 mL/min/1.73m2 Critically low >=60 [facility] Comment on above: Performed By: #### T SH, BNP, CMP, T7, LIPID #### [facility] [address] [place] [address] Dr. Eusebia Moralez Globulin (S) [Mass/Vol] 3.5 g/dL Normal [facility] Comment on above: Performed By: #### T SH, BNP, CMP, T7, LIPID #### [facility] [address] [place] [address] Dr. Eusebia Moralez Glucose [Mass/Vol] 129 mg/dL Critically high 74-106 [facility] Comment on above: Performed By: #### T SH, BNP, CMP, T7, LIPID #### [facility] [address] [place] [address] Dr. Eusebia Moralez Potassium [Moles/Vol] 4.7 mmol/L Normal 3.5-5.1 [facility] Comment on above: Performed By: #### T SH, BNP, CMP, T7, LIPID #### [facility] [address] [place] [address] Dr. Eusebia Moralez Protein [Mass/Vol] 6.8 g/dL Normal 6.4-8.2 [facility] Comment on above: Performed By: #### T SH, BNP, CMP, T7, LIPID #### [facility] [address] [place] [address] Dr. Eusebia Moralez Sodium [Moles/Vol] 141 mmol/L Normal 136-145 [facility] Comment on above: Performed By: #### T SH, BNP, CMP, T7, LIPID #### [facility] [address] [place] [address] Dr. Eusebia Moralez Urea nitrogen [Mass/Vol] 37.0 mg/dL Critically high 7.0-18.0 [facility] Comment on above: Performed By: #### T SH, BNP, CMP, T7, LIPID #### [facility] [id number] Eusebia Moralez Urea nitrogen/Creatinin e [Mass ratio] 24.5 mg/mg Normal [facility] Comment on above: Performed By: #### T SH, BNP, CMP, T7, LIPID #### [facility] [address] [address] [address] Eusebia Moralez TSHon 01-14-2022 TSH 0.068 uIU/mL Critically low 0.358-3.740 [facility] Comment on above: Performed By: #### T SH, BNP, CMP, T7, LIPID ####[facility] [address] [address]Dr. Eusebia Moralez Covid-19 PCR (CVDTBH)on 10-13 SARS-CoV-2 (COVID-19) RNA DEREK+probe Ql (Unsp spec) Not detected Normal NOT DETECTED [facility] Comment on above: Result Comment: This test is not yet approved or cleared by the [place] FDA. When there are no FDA-approved or cleared tests available, and other criteria are met, FDA can make tests available under an emergency access mechanism called an Emergency Use Authorization (EUA). The EUA for this test is supported by the Foreign Exchange Clerk of Health and Human Service's (HHS's) declaration [...] with SARS-CoV-2. Performed By: #### C VDTBH ####[facility] [address] [place], [place] [address]Cv. Eusebia Moralez MRI LSPINE WO CONon 10-11-19 [...] by: AMBAR MAYA Date: 2021-10-10 07:29 Normal [facility] Pulmonary Progress Noteo n 09-13-2020 [facility] Pulmonary Progress Note [facility] Pt Name: VERO SADLER [address] [place] [address] MR#: [id number] [place] [address] ACCT: [id number] PROGRESS NOTE- Pulmonary : [facility] Date of Service: 09/13/20 Text NAME: VERO SADLER MR#: [id number] DATE OF SERVICE: 09/13/2020 OUTPATIENT PULMONARY PROGRESS [...] disease, severity unknown. We will try to [facility] Pt Name: VERO SADLER [address] [place] [address] MR#: [id number] [address] [id number] ACCT: [id number] PROGRESS NOTE- Pulmonary : [facility] [...] postoperative management if needed. TIM TOSCANO MD DI/MODL/[id number] CC: Dr. Rito Guerrero MD eSi Date and Time Tim Toscano MD Signature on File 09/26/20 1046 Normal [facility] GLYCO HEMOon 08-23-2020 HbA1c (Bld) [Mass fraction] 5.3 % Normal [facility] Comment on above: Result Comment: Milagro vidal Diagnosis HbA1c (%) --------- Diabetic > 6.4 Prediabetes 5.7-6.4 Normal < 5.7 Performed By: #### L 500.08110 #### Test performed at: [address] [address] CBC W/DIFFon 08-22-2020 BASO ABS 0.0 K/uL Normal 0.0-0.2 [facility] Comment on above: Performed By: #### L 200.61267 #### Test performed at: [address] [address] Basophils/100 WBC (Bld) 0.5 % Normal [facility] Comment on above: Performed By: #### L 200.08906 #### Test performed at: [address] [address] EOS ABS 0.1 K/uL Normal 0.0-0.5 [facility] Comment on above: Performed By: #### L 200.70619 #### Test performed at: [address] [address] Eosinophils/100 WBC (Bld) 1.2 % Normal [facility] Comment on above: Performed By: #### L 200.10345 #### Test performed at: [address] [address] Erythrocyte distribution width (RBC) [Ratio] 12.8 % Normal 11.5-14.5 [facility] Comment on above: Performed By: #### L 200.00646 #### Test performed at: [address] [id number] Hematocrit (Bld) [Volume fraction] 40.1 % Normal 36.0-48.0 [facility] Comment on above: Performed By: #### L 200.60339 #### Test performed at: [address] [address] Hemoglobin (Bld) [Mass/Vol] 12.4 g/dL Normal 12.0-15.0 [facility] Comment on above: Performed By: #### L 200.23719 #### Test performed at: [address] [address] IG % 0.3 % Normal [facility] Comment on above: Performed By: #### L 200.27643 #### Test performed at: [address] [address] IG ABS 0.02 K/uL Normal 0-0.05 [facility] Comment on above: Performed By: #### L 200.33818 #### Test performed at: [address] [address] Lymphocytes (Bld) [#/Vol] 1.3 10*3/uL Normal 1.2-3.5 [facility] Comment on above: Performed By: #### L 200.77502 #### Test performed at: [address] [address] Lymphocytes/100 WBC (Bld) 16.9 % Normal [facility] Comment on above: Performed By: #### L 200.30228 #### Test performed at: [address] [address] MCH (RBC) [Entitic mass] 29.0 pg Normal 25.4-34.6 [facility] Comment on above: Performed By: #### L 200.78564 #### Test performed at: [address] [address] MCHC (RBC) [Mass/Vol] 30.9 g/dL Low 31.5-36.5 [facility] Comment on above: Performed By: #### L 200.15830 #### Test performed at: [address] [address] MCV (RBC) [Entitic vol] 93.7 fL Normal 79.0-98.0 [facility] Comment on above: Performed By: #### L 200.10913 #### Test performed at: [address] [address] MONO ABS 0.8 K/uL Normal 0.0-1.0 [facility] Comment on above: Performed By: #### L 200.74973 #### Test performed at: [address] [address] Monocytes/100 WBC (Bld) 9.7 % Normal [facility] Comment on above: Performed By: #### L 200.40251 #### Test performed at: [address] [address] NEUTROPHIL ABS 5.5 K/uL Normal 1.4-6.6 [facility] Comment on above: Performed By: #### L 200.75543 #### Test performed at: [address] [address] Neutrophils/100 WBC (Bld) 71.4 % Normal [facility] Comment on above: Performed By: #### L 200.99677 #### Test performed at: [address] [address] NRBC # 0.000 K/uL Normal 0-0.012 [facility] Comment on above: Performed By: #### L 200.33662 #### Test performed at: [address] [address] NRBC % 0.0 /100 WBC Normal 0-0.2 [facility] Comment on above: Performed By: #### L 200.63549 #### Test performed at: [address] [address] Platelet mean volume (Bld) [Entitic vol] 10.1 fL Normal 8.7-12.4 [facility] Comment on above: Performed By: #### L 200.32872 #### Test performed at: [address] [address] Platelets (Bld) [#/Vol] 236 10*3/uL Normal 140-440 [facility] Comment on above: Performed By: #### L 200.91708 #### Test performed at: [address] [address] RBC (Bld) [#/Vol] 4.28 10*6/uL Normal 3.5-5.5 [facility] Comment on above: Performed By: #### L 200.70779 #### Test performed at: [address] [address] WBC (Bld) [#/Vol] 7.7 10*3/uL Normal 3.9-11.0 [facility] Comment on above: Performed By: #### L 200.69773 #### Test performed at: [address] [address] CHEST PA/AP & LATERAL OR 2 V WSon 08-22-2020 CHEST PA/AP & LATERAL OR 2 VWS STUDY: CHEST PA/AP LATERAL OR 2 VWS; 08/22/2020 2:35 pm INDICATION: COPD. COMPARISON: None. ACCESSION NUMBER(S): [id number] ORDERING CLINICIAN: Ovidio Baez FINDINGS: The lungs are clear without pleural effusion. Borderline cardiomegaly. Otherwise unremarkable mediastinum, eron, and pulmonary vasculature. Thoracic degenerative changes are present. IMPRESSION: No active disease in the chest. Normal [facility] COMP META PANELon 08-22-2020 Albumin [Mass/Vol] 3.4 g/dL Normal 3.4-5.0 [facility] Comment on above: Performed By: #### L 500.12151, L500.41864, L500.93009 #### Test performed at: [address] [address] ALK PHOS TOTAL 88 U/L Normal 45-117 [facility] Comment on above: Performed By: #### L 500.64491, L500.12743, L500.56045 #### Test performed at: [address] [address] ALT [Catalytic activity/Vol] 17 U/L Normal 13-61 [facility] Comment on above: Performed By: #### L 500.59224, L500.91954, L500.75433 #### Test performed at: [address] [address] AST [Catalytic activity/Vol] 12 U/L Low 15-37 [facility] Comment on above: Performed By: #### L 500.00024, L500.05618, L500.83757 #### Test performed at: [address] [address] BILI TOTAL 0.5 mg/dL Normal 0.2-1.0 [facility] Comment on above: Performed By: #### L 500.34358, L500.89829, L500.51280 #### Test performed at: [address] [address] Calcium [Mass/Vol] 9.0 mg/dL Normal 8.5-10.1 [facility] Comment on above: Performed By: #### L 500.45916, L500.92073, L500.10188 #### Test performed at: [address] [address] Chloride [Moles/Vol] 107 mmol/L Normal 98-107 [facility] Comment on above: Performed By: #### L 500.42885, L500.24104, L500.84890 #### Test performed at: [address] [address] CO2 [Moles/Vol] 29 mmol/L Normal 21-32 [facility] Comment on above: Performed By: #### L 500.70998, L500.66295, L500.88625 #### Test performed at: [address] [address] Creatinine [Mass/Vol] 1.280 mg/dL High 0.550-1.020 [facility] Comment on above: Performed By: #### L 500.49900, L500.39696, L500.03763 #### Test performed at: [address] [address] Glucose [Mass/Vol] 90 mg/dL Normal 70-99 [facility] Comment on above: Result Comment: Fast ing GLUCOSE reference range has been updated per (ADA) [place] [employer]'s recommendation. 06/07/2018 Performed By: #### L 500.32999, L500.33771, L500.97665 #### Test performed at: [address] [address] Potassium [Moles/Vol] 4.4 mmol/L Normal 3.5-5.1 [facility] Comment on above: Performed By: #### L 500.47486, L500.15549, L500.67466 #### Test performed at: [address] [address] Protein [Mass/Vol] 6.8 g/dL Normal 6.4-8.2 [facility] Comment on above: Performed By: #### L 500.68640, L500.12274, L500.15647 #### Test performed at: [address] [address] Sodium [Moles/Vol] 142 mmol/L Normal 136-145 [facility] Comment on above: Performed By: #### L 500.12077, L500.48378, L500.86820 #### Test performed at: [address] [address] Urea nitrogen [Mass/Vol] 21 mg/dL High 7-18 [facility] Comment on above: Performed By: #### L 500.69585, L500.13689, L500.65454 #### Test performed at: [address] [address] GFR ESTIMATEon 08-22-2020 IF AMER 50 Low > 60 [facility] Comment on above: Result Comment: eGFR (Estimated GFR) Units of measure:mL/min/1.73 meters sq. *CALCULATION REVISED 01/01/2015;IDMS-traceable MDRD equation eGFR is derived from the reexpressed MDRD Study equation using the following parameters: serum creatinine, age, gender and race. An eGFR<60 mL/min/1.73m2 for >3 months is consistent with chronic kidney disease. Refer to KDOQI guidelines for clinical interpretation. Performed By: #### L 500.79915, L500.18671, L500.06693 #### Test performed at: [address] [address] IF non-AFR AMER 41 Low > 60 [facility] Comment on above: Performed By: #### L 500.54437, L500.15582, L500.07176 #### Test performed at: [address] [address] TSH ULTRA SENSon 08-22-2020 TSH ULTRA SENS < 0.005 Low 0.358-3.74 [facility] Comment on above: Performed By: #### L 500.17490, L500.56792, L500.17657 #### Test performed at: [address] [address] LUMB SP COMP W FLEX/EXT 6 VW Son 07-23-2020 LUMB SP COMP W FLEX/EXT 6 VWS STUDY: LUMB SP COMP W FLEX/EXT 6 VWS ; 07/23/2020 9:01 am INDICATION: PAIN. COMPARISON: None. ACCESSION NUMBER(S): [id number] ORDERING CLINICIAN: Sacha Guerrero FINDINGS: No fracture [...] of the lumbar spine without instability. Normal [facility] Vital Signs Date Time Vital Sign Value Performing Clinician Ted guerra 01-06-2024 13:02-0400 Body height 162.56 cm [facility] 01-06-2024 13:02-0400 Body mass index (BMI) [Ratio] 50.5 kg/m2 [facility] 01-06-2024 13:02-0400 Body temperature 96.3 [degF] [facility] 01-06-2024 13:02-0400 Body weight 133.46 kg [facility] 01-06-2024 13:02-0400 Diastolic blood pressure 90 mm[Hg] [facility] 01-06-2024 13:02-0400 Heart rate 81 /min [facility] 01-06-2024 13:02-0400 Respiratory rate 18 /min [facility] 01-06-2024 13:02-0400 SaO2% (BldA) [Mass fraction] 98 % [facility] 01-06-2024 13:02-0400 Systolic blood pressure 179 mm[Hg] [facility] Encounters Encounter Date Encounter Type Care Provider Facility Start: 01-06-2024 End: 01-06-[address] [facility] Work Phone: Start: 01-06-2024 End: 01-06-2024 Patient encounter procedure [facility] Nephrology Javier Work Phone: Start: 11-23-2023 End: 11-23-2023 Encounter for other specified special examinations JOSE ANGEL MEEHAN [facility] Start: 11-23-2023 End: 11-23-2023 ambulatory JOSE ANGEL MEEHAN [facility] Start: 10-26-2023 End: 10-26-2023 ambulatory JOSEY [facility] Start: 07-20-2023 End: 07-20-2023 ambulatory TIAN FORD [facility] Start: 07-09-2023 ambulatory JOSE ANGEL [facility] Start: 06-30-2023 End: 06-30-2023 ambulatory JOSEY [facility] Start: 05-31-2023 End: 05-31-2023 ambulatory JOSE ANGEL MEEHAN [facility] Start: 03-26-2023 ambulatory JOSE ANGEL MEEHAN [facility] Start: 03-23-2023 End: 03-23-2023 ambulatory JOSEY KWOK [facility] Start: 02-16-2023 End: [facility]: 02-09-2023 End: 02-09-2023 ambulatory DARIO ALARCON [facility] Start: 02-01-2023 End: 02-01-2023 ambulatory [facility] Start: 01-20-2023 End: 01-20-2023 ambulatory CINTIAKAMLA JACOBO [facility] Start: 01-12-2023 End: 01-12-2023 ambulatory [facility] Start: 01-12-2023 End: 01-12-2023 ambulatory [facility] Start: 01-05-2023 End: 01-05-2023 ambulatory NATALIA Willis [facility] Start: 01-05-2023 End: 01-05-2023 ambulatory NATALIA Willis [facility] Start: 01-01-2023 End: 01-01-2023 ambulatory COLLETTE HOFFMAN [facility] Start: 12-22-2022 End: 12-22-2022 ambulatory JOSE ANGEL MEEHAN [facility] Start: 12-15-2022 End: 12-15-2022 ambulatory TIAN FORD [facility] Start: 12-08-2022 ambulatory JOSE ANGEL [facility] Start: 12-02-2022 ambulatory Desmond ANDERS Facility :[facility] Start: 11-30-2022 End: 11-30-2022 ambulatory JOSE ANGEL MEEHAN [facility] Start: 11-13-2022 ambulatory Desmond ANDERS Facility:[facility] Start: 07-17-2022 End: 07-18-2022 ambulatory JOSEY KWOK Facility:[facility] Start: 07-02-2022 End: 07-03-2022 ambulatory JOSEY KWOK Facility:[facility] Start: 05-25-[address] DEBBIE [...] Start: 09-29-2016 End: 09-30-2016 Ambulatory DEFAULT PHYSICIAN Facility:[facility] Plan of Treatment Date Care Activity Detail Author Renal function 1999 panel - Serum or Plasma [facility] enter [facility] Payers Date Payer Category Payer Medicare [id number] 1958 Medicare [id number] 1958 Unknown [id number] 1950 Unknown [id number] 2.16.84 [id number] 1950 Unknown [id number] 2.16.84 0.1.908176.3.579.2.593 1950 Unknown [id number] 2.16.84 0.1.470993.3.579.2.593 1950 Unknown [id number] 2.16.84 0.1.576518.3.579.2.593 1950 Unknown [id number] 2.16.84 0.1.792551.3.579.2.593 1950 Unknown [id number] 2.16.84 0.1.644363.3.579.2.593 1950 Unknown [id number] 2.16.84 0.1.425564.3.579.2.593 1950 Unknown [id number] 2.16.84 0.1.546622.3.579.2.593 1950 Unknown [id number] 2.16.84 0.1.765307.3.579.2.593 1950 Unknown [id number] 2.16.84 0.1.157893.3.579.2.593 1950 Unknown [id number] 2.16.84 0.1.137557.3.579.2.593 1950 Unknown [id number] 2.16.84 0.1.908612.3.579.2.593 1950 Unknown [id number] 2.16.84 0.1.266474.3.579.2.593 1950 Unknown [id number] 2.16.84 0.1.966406.3.579.2.593 1950 Unknown [id number] 2.16.8 40.1.884072.3.579.2.727 Unknown Unknown [id number] Social History Date Type Detail Facility Start: 01-06-2024 [facility] Start: 1950 Sex Assigned At Female F [facility] Clinical Notes 11-25-2022 to 10-26-2023 Note Date & Type Note Facility 10-26-2023 Note [place] [facility] Consul t Note Reason for visit: follow up after PPM. 10/26/23 Patient here for 6 mo follow up afib and hypertension. Had routine labs w/ lipid panel and renal ultrasound in Apr 2023. Her device was checked in June and reported good. She is doing well. Feels better. No AF on device 03/23/23 Patient here for 2 mo follow [...] sleep apnea 10/02/2022 SOBIA=17.7 events/hour; Pranav SaO2=76%; Kpwvgb=297.0 lbs; BMI=52.7 kg/m2, Home Sleep Apnea Testing on 09/25/2022 at [facility] PSH: Past Surgical History: Procedure Laterality Date CARDIAC CATHETERIZATION COLONOSCOPY 02/09/2023 EYE SURGERY CATARACT FOOT SURGERY Right tendon repair HYSTERECTOMY INSERT / REPLACE / REMOVE PACEMAKER 01/12/2023 OTHER SURGICAL HISTORY Bilateral 05/31/2023 S1 TFESI - 20% pain relief SH: Social Determinants of Health Tobacco Use: Medium Risk (07/20/2023) Patient History Smoking Tobacco Use: Former Smokeless Tobacco Use: Never Passive Exposure: Never Alcohol Use: Not on file Financial Resource Strain: Low Risk (01/05/2023) Overall Financial Resource Strain (CARDIA) Difficulty of Paying Living Expenses: Not hard at all Food Insecurity: No Food Insecurity (01/05/2023) Hunger Vital Sign Worried About Running Out of Food in the Last Year: Never true Ran Out of Food in the Last Year: Not on file Transportation Needs: No Transportation Needs (01/05/2023) Transportation Lack of Transportation (Medical): No Lack of Transportation (Non-Medical): Not on file Physical Activity: Not on file Stress: Not on file Social Connections: Not on file Intimate Partner Violence: Not At Risk (07/09/2023) Humiliation, Afraid, Rape, and Kick questionnaire Fear of Current or Ex-Partner: No Emotionally Abused: No Physically Abused: No Sexually Abused: No Depression: Not at risk (07/20/2023) PHQ-2 PHQ-2 Score: 0 Housing Stability: Low Risk (01/05/2023) Housing Stability Vital Sign Unable to Pay for Housing in the Last Year: Not on file Number of Places Lived in the Last Year: Not on file Unstable Housing in the Last Year: No Utilities: Not on file Allergies: Allergies Allergen Reactions Penicillins (more content not included)... [facility] 07-20-2023 Note Division of Nephrolo gy Vero [...] was recently taken off spironolactone by her brass and wind instrument repairer. She is on po bumex daily. For [...] sleep apnea 10/02/2022 SOBIA=17.7 events/hour; Pranav SaO2=76%; Moqkux=550.0 lbs; BMI=52.7 kg/m2, Home Sleep Apnea Testing on 09/25/2022 at [facility] Family History Problem Relation Name Age of [...] the morning, afternoon, and at bedtime. omega 7-jnu-rrx-fish oil 350 mg-235 mg- 90 mg-597 mg [...] past 168 hour(s)) (more content not included)... [facility] 07-09-2023 Note [facility] Interventional Pain Management SUBJECTIVE: Subjective 07/09/23 CC: [...] since last visit she has seen cardiology crossing watchman for [place]. patient reports that overall she [...] that she becerra (more content not included)... [facility] 05-31-2023 Note Interventional Pain Management Nursing Note / Nurse Post-Call Note S/p SHANTE TFESI S1 Patient reports pain level 0. Pre procedure pain level 8 on 05/31/23. Denies problems or complications. Reminded of next appointment 07/09/23 at 1030. [facility] 03-26-2023 Note [facility] Interventional Pain Management SUBJECTIVE: Subjective 03/26/23 CC: [...] since last visit she has seen cardiology crossing watchman for [place]. patient reports that overall she [...] further. She was able to walk around [place] which she previously was not able to [...] plans to dispo (more content not included)... [facility] 03-23-2023 Note [place] [facility] Consul t Note Reason for visit: [...] kidney disease COPD (chronic obstructive pulmonary disease) ([facility]) Hypertension Myocardial infarction ([facility]) Obstructive sleep apnea 10/02/2022 SOBIA=17.7 events/hour; Pranav SaO2=76%; Oewmrd=601.0 lbs; BMI=52.7 kg/m2, Home Sleep Apnea Testing on 09/25/2022 at [facility] PSH: Past Surgical History: Procedure Laterality Date [...] on File Prio (more content not included)... [facility] 02-16-2023 Note [facility] Gastroenterolog y Follow-Up Patient Visit CHIEF COMPLAINT [...] 1 year. Stool studies were submitted to [place], no results available. Ongoing altered BMs, however [...] with abdominal pain, bloating, and diarrhea. Sedation: [facility] Attending Physician: Dr. Dario Alarcon Director Of Litigation: Nancy Prado, Fellow Procedure Details: Informed consent [...] mother. Sedation: MAC Attending Physician: Dr. Dario Alarcon Findings: Poor [...] small external hemorrhoid (more content not included)... [facility] 02-09-2023 Note Patient: Vero boudreaux Procedure Summary Date: 02/09/23 Room / Location: [facility] Endoscopy Anesthesia Start: 1336 [...] no known notable events for this encounter. [facility] 02-09-2023 Note Patient: Vero boudreaux Procedure Summary Date: 02/09/23 Room / Location: [facility] Endoscopy Anesthesia Start: 1336 Anesthesia Stop: Procedures: [...] 3 Anesthesia Post Transport Note Transport to: [place] PACU O2 Route: room air Patient Monitor: direct observation Transport: uneventful Patient condition is: stable [facility] 02-09-2023 Note Patient: Vero boudreaux Procedure Information Date/Time: 02/09/23 1100 Scheduled providers: Dario Alarcon MD; Abel Downing MD Procedures: DIAGNOSTIC COLONOSCOPY EGD Location: [facility] Endoscopy Relevant Problems Anesthesia (+) KATIE on [...] Plan discussed with resident. 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 Do not wear perfume, make-up, nail luxembourgish, or lotions on the day of your [...] need to make any changes, please call [phone]. Notify your surgeon if you develop any illness such as a cold, cough, fever, sore throat or vomiting between now and your surgery. Thank you for entrusting us with your care. [facility] Surgical Services Team [facility] 01-20-2023 Note Cardiovascular Medic [facility] SUBJECTIVE Chief Complaint Patient presents [...] sleep apnea 10/02/2022 SOBIA=17.7 events/hour; Pranav SaO2=76%; Cethyn=817.0 lbs; BMI=52.7 kg/m2, Home Sleep Apnea Testing on 09/25/2022 at [facility] Family History Problem Relation Name Age of [...] in the morning., Disp: , Rfl: omega 6-bpx-gov-fish oil 350 mg-235 mg- 90 mg-597 mg capsule,delayed release(DR/EC), Take 1 capsule by mouth in the morning., Disp: , Rfl: revefenacin (Yupelri) 175 mcg/3 mL nebu (more content not included)... [facility] 01-20-2023 Note Patient here for wou nd check s/p PPM placement on 01/[address] Bullock. She presented to [facility] ED yesterday for near-syncope. Said BP was high this morning when she was discharged from the hospital. Chest pressure and palpitations have resolved since getting device. Valdez from [employer] was contacted regarding home monitor. He states everything looked good and no arrhythmias. Review of Systems Constitutional: Positive for diaphoresis and malaise/fatigue. Cardiovascular: Positive for dyspnea on exertion and leg swelling. Respiratory: Positive for snoring. Hematologic/Lymphatic: Bruises/bleeds easily. Musculoskeletal: Positive for back pain, muscle weakness and myalgias. Neurological: Positive for excessive daytime sleepiness and headaches. All other systems reviewed and are negative. [facility] 01-12-2023 Note Indications for perm anent pacemaker [...] of the upper extremity Jennifer Bullock M.D. [facility] Code Enforcement Officerhoe runner and Pediatrics Director: Cardiac Electrophysiology Program [facility] 01-12-2023 Note Patient: Vero boudreaux Procedure Information Date/Time: 01/12/23829 Procedure: Implant PPM - Tachy Newton syndrome, NSVT, symptomatic bradycardia Location: [facility] CIVIL ENGINEERING PROFESSIONAL 1 / [facility] (Cath) Providers: Jennifer Bullock [...] discussed with patient who. Additional Equipment Requests [facility] 01-05-2023 Note [facility] Gastroenterolog y New Patient Visit - History [...] CLN ~ 3-4 year ago at [facility] in [place]. No records available. Reports history of polyps and h/o rectal cancer in her mother and colon cancer in her father. HISTORY: Problem list: Patient Active Problem List Diagnosis Chest pain Dyspnea Edema Essential hypertension Fatigue Lightheadedness Spinal stenosis of lumbar region with neurogenic claudication Lower abdominal pain Spondylosis of lumbosacral region without myelopathy or radiculopathy A-fib ([facility]) Clinical trial exam VT (ventricular tachycardia) ([facility]) Obstructive sleep apnea Nonsustained paroxysmal ventricular tachycardia ([facility]) Other secondary pulmonary hypertension ([facility]) KATIE on CPAP Symptomatic bradycardia 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[facility]) Past Medical History: Past Medical History: Diagnosis Date Abnormal ECG Arthritis Chronic kidney disease COPD (chronic obstructive pulmonary disease) ([facility]) Hypertension Myocardial infarction ([facility]) Obstructive sleep apnea 10/02/2022 SOBIA=17.7 events/hour; Pranav SaO2=76%; Ahbhoy=461.0 lbs; BMI=52.7 kg/m2, Home Sleep Apnea Testing on 09/25/2022 at [facility] Past Surgical History: Past Surgical History: Procedure [...] in the m (more content not included)... [facility] 01-05-2023 Note D/W Dr Kwok - MARY [...] reaction to medications/ or contrast, stroke, . [facility] 01-01-2023 Note Continue coreg 6.25 mg bid [facility] 01-01-2023 Note Pt with noted bradyc ardia with heart rates in 40-50's with noted lightheadedness, dizziness, near syncope. 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 She voiced understanding and agreement [facility] 01-01-2023 Note Patient here c/o bra dycardia [...] All other systems reviewed and are negative. [facility] 01-01-2023 Note [facility] CARDIOLOGY PROGR ESS NOTE [...] mg by mouth in the morning. omega 1-cjx-xfm-fish oil 350 mg-235 mg- 90 mg-597 mg [...] edema. Left lowe (more content not included)... [facility] 12-22-2022 Note [facility] Interventional Pain Management SUBJECTIVE: Subjective 12/22/22 CC: [...] since last visit she has seen cardiology crossing watchman for [place]. patient reports that overall she [...] further. She was able to walk around [employer] which she previously was not able [...] is still havi (more content not included)... [facility] 12-15-2022 Note Division of Nephrolo lester Sadler is a 72 y.o. female who [...] was recently taken off spironolactone by her brass and wind instrument repairer. She is on po bumex daily. For [...] kidney disease COPD (chronic obstructive pulmonary disease) ([facility]) Hypertension Myocardial infarction ([facility]) Obstructive sleep apnea 10/02/2022 SOBIA=17.7 events/hour; Pranav SaO2=76%; Izyiqw=959.0 lbs; BMI=52.7 kg/m2, Home Sleep Apnea Testing on 09/25/2022 at [facility] Family History Problem Relation Name Age of [...] morning. mometasone (Elocon) 0.1 % cream omega 4-aqx-fvv-fish oil 350 mg-235 mg- 90 mg-597 mg [...] results found f (more content not included)... [facility] 12-08-2022 Note [facility] Interventional Pain Management SUBJECTIVE: Subjective 12/08/22 CC: [...] since last visit she has seen cardiology crossing watchman for [place]. patient reports that overall she [...] further. She was able to walk around [employer] which she previously was not able [...] old female ret (more content not included)... [facility] 11-30-2022 Note No concerns as per call back josefa delines [facility] 11-30-2022 Note Patient: Vero boudreaux Procedure Summary Date: 11/30/22 Room / Location: [facility] OPERATING ROOM 02 / [facility] Operating Room Anesthesia Start: 742 Anesthesia Stop: [...] per anesthesia protocol. No notable events documented. [facility] 11-30-2022 Note Patient: Vero boudreaux Procedure Information Date/Time: 11/30/22 0730 Procedure: L3-L5 SPINE DECOMPRESSION , USING VERTIFLEX SUPERION INTERSPINOUS SPACER (Spine Lumbar) - C-ARM, Trellie, FIRST CASE, REP NOTIFIED 11/18 JK Location: [facility] OPERATING ROOM 02 / [facility] Operating Room Surgeons: Jose Angel Meehan MD [...] Plan discussed with attending. 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 Do not wear perfume, make-up, nail luxembourgish, or lotions on the day of your [...] need to make any changes, please call [phone]. Notify your surgeon if you develop any illness such as a cold, cough, fever, sore throat or vomiting between now and your surgery. Thank you for entrusting us with your care. [facility] Surgical Services Team [facility] Evaluation note Diagnosis Onset Date CKD (chronic kidney disease) stage 4, GFR 15-29 ml/min acute Hyperkalemia acute [id number] acute Secondary hyperparathyroidism acute Chronic kidney disease nonea [facility] Work Phone: Summary Purpose Family History Relationship Condition Age at Onset Recorded Date/T des father Malignant neoplasm Unknown mother Abscess of intestine due to Crohn's disease Unknown Malignant neoplasm Unknown Advance Directives Advance Directive Response Recorded Date/ Time Advance Directives No January 06, 2024 12:45pm Chief Complaint and Reason for Visit Chief Complaint RENAL CKD 3 Reason for Visit CKD (chronic kidney disease) stage 4, GFR 15-29 ml/min Hyperkalemia [id number] Secondary hyperparathyroidism Chronic kidney disease Additional Source Comments INFORMATION SOURCE (unrecogn ized section and content) DATE CREATED AUTHOR 09/08/2017 [facility] DATE CREATED AUTHOR AUTHOR'S ORGANIZ ATION 09/27/2020 [facility] DATE CREATED AUTHOR AUTHOR'S ORGANIZ ATION 07/24/2022 [facility] DATE CREATED AUTHOR AUTHOR'S ORGANIZ ATION 11/21/2022 [facility] DATE CREATED AUTHOR AUTHOR'S ORGANIZ ATION 11/25/2023 [facility] Care Teams (unrecognized sec tion and content) Team Status: Active Member Role Status Dates Debbie Bhatia MD Primary Care Provider Active Team Status: Inactive Member Role Status Dates Debbie Bhatia MD Primary Care Provide r, Referring Provider Active Start: January 06, 2024 End: January 06, 2024 Lizette Schaffer MD Attending Provider Active Start : January 06, 2024 End: January 06, 2024 Goals (unrecognized section and content) Goals may be documented in a n alternate section FOR RECORDS PERTAINING TO PATIENTS WHO ARE [...] BE BASED ON THE PRIMARY CLINICAL RECORDS. [facility]. provides no warranty or guarantee of the accuracy or completeness of information in this document.
--- NOTE | 2024-01-23 17:07 | ECG_ITS ---
The [facility] Test Date: 2024-01-23 Pat Name: JUSTIN COLLINS Department: Room: - Gender: Female It Program Auditor: : 1950 Requested By: DEBBIE BHATIA Order Number: [id number] Reading MD: DEBBIE BHATIA Measurements Intervals [place] Rate: 81 P: 87 [place]: 156 QRS: 68 QRSD: 88 T: 60 QT: 384 QTc: 421 Interpretive Statements 09171 Electronic atrial pacemaker 9120 atypical ECG Compared to ECG 01/19/2023 11:51:08 Sinus rhythm no longer present T-wave abnormality no longer present Electronically Signed On 01-24-2024 5:15:18 EST by DEBBIE BHATIA
--- NOTE | 2024-01-23 17:07 | XR_ITS ---
The [address] [address] Patient Name: JUSTIN COLLINS MRN: [id number] date: 1950 Sex: F Assigned Patient Location: ER Current Patient Location: ER Accession/Order Number: [id number] Exam Date: 01/23/2024 17:28 Report Date: 01/23/2024 17:52 At the request of: JESSE OCAMPO Procedure: XR chest 1V EXAM: XR chest 1V HISTORY: chest pain COMPARISON: 01/19/2023 TECHNIQUE: Chest X-ray AP, 1 view FINDINGS: Support devices: Left-sided pacemaker is in place. Lungs/pleura: No consolidation, effusion, or pneumothorax. Heart and mediastinum: Normal contours. Bones: No acute abnormality identified. XR/XR chest 1V Impression: No radiographic evidence of acute cardiopulmonary process. Electronically authenticated by: KAREN KEITH Date: 01/23/2024 17:52
[2024-01-23 17:23] LABS: Basophils Percent Auto 0.5 % (0.2-2.0); Eosinophils Absolute Auto 0.1 10^3/uL (0.0-0.7); Eosinophils Percent Auto 1.1 % (0.9-7.0); Hematocrit 39.5 % (36.0-48.0); Hemoglobin 12.2 g/dL (12.0-16.0); Immature Granulocytes Abs Auto 0.03 10^3/uL (0.00-0.03); Immature Granulocytes Pct Auto 0.4 % (0.0-0.5); Lymphocytes Absolute Auto 1.5 10^3/uL (1.2-3.8); Lymphocytes Percent Auto 17.8 % (20.5-60.0); Mean Corpuscular HGB Conc 30.9 g/dL (29.9-35.2); Mean Corpuscular Hemoglobin 29.3 pg (26.7-34.0); Mean Corpuscular Volume 94.7 fL (81.0-99.0); Mean Platelet Volume 9.3 fL (9.5-13.5); Monocytes Absolute Auto 0.9 10^3/uL (0.3-0.8); Monocytes Percent Auto 10.5 % (1.7-12.0); Neutrophils Absolute Auto 5.7 10^3/uL (1.4-6.5); Neutrophils Percent Auto 69.7 % (43.0-75.0); Platelet Count 206 10^3/uL (150-450); Red Blood Count 4.17 10^6/uL (4.20-5.40); Red Cell Distribution Width 14.1 % (11.0-15.0); White Blood Count 8.2 10^3/uL (4.0-11.0)
[2024-01-23 17:36] LABS: Prothrombin Time 10.6 sec (9.0-11.6)
[2024-01-23 17:40] LABS: Alanine Aminotransferase 9 U/L (14-59); Albumin Globulin Ratio 0.8; Alkaline Phosphatase 77 U/L (46-116); Anion Gap 13.8; Aspartate Amino Transferase 11 U/L (15-37); BUN Creatinine Ratio 16.7; Bilirubin Total 0.4 mg/dL (0.2-1.0); Calcium 9.1 mg/dL (8.5-10.1); Carbon Dioxide 23.5 mmol/L (21.0-32.0); Chloride 111 mmol/L (98-107); Estimated GFR (African America 34 (>=60 mL/min/1.73m^2); Estimated GFR (Non-African Ame 28 (>=60 mL/min/1.73m^2); Globulin 3.6 g/dL; Glucose 87 mg/dL (74-106); Potassium 5.3 mmol/L (3.5-5.1); Sodium 143 mmol/L (136-145); Total Protein 6.6 g/dL (6.4-8.2)
[2024-01-23] MEDS: FAMOTIDINE/PF 20 MG/2 ML VIAL IV (17:57)
[2024-01-23] MEDS: NITROGLYCERIN 0.4 MG BOTTLE SL (17:57)
--- NOTE | 2024-01-23 18:06 | ED_ITS ---
HPI - Chest Pain General Chief Complaint: Chest Pain Stated Complaint: CHEST PAIN Time Seen by Provider: 01/23/24 17:06 Source: patient Mode of arrival: walk-in History of Present Illness HPI narrative: The patient is 74 years old female coming to us with the left-sided chest pain and pressure that been going on at least for the last 7 days, mentioned that this pressure radiated to her left arm and it is associated sometimes with the sensation of acid reflux in her mouth. The patient denies any vomiting but she have some nausea sometimes and she have no history of shortness of breath recently as she mentioned that her pacemaker was enough to cause her to have decrease in his COPD attacks Patient have no shortness of breath no cough and no relation of the pressure with food The patient mentioned that the pressure was not continuous until Wednesday when it started being continuous in the left side of the chest Related Data Home Medications ?Medication ?Instructions ?Recorded ?Confirmed bumetanide 1 mg tablet 1 mg PO DAILY PRN edema 01/19/23 01/23/24 carvedilol 25 mg tablet 12.5 mg PO BID 01/19/23 01/23/24 diclofenac sodium 75 mg 75 mg PO BID 01/19/23 01/23/24 tablet,delayed release hydralazine 100 mg tablet 100 mg PO TID 01/19/23 01/23/24 isosorbide mononitrate 30 mg 30 mg PO DAILY 01/19/23 01/23/24 tablet,extended release 24 hr levothyroxine 100 mcg tablet 100 mcg PO DAILY 01/19/23 01/23/24 liothyronine 25 mcg tablet 25 mcg PO DAILY 01/19/23 01/23/24 (Cytomel) lisinopril 10 mg tablet 10 mg PO DAILY 01/19/23 01/23/24 lovastatin 20 mg tablet 20 mg PO DAILY 01/19/23 01/23/24 revefenacin 175 mcg/3 mL solution 175 mcg inhalation DAILY 01/19/23 01/23/24 for nebulization (Yukaydeni) aspirin 81 mg capsule 81 mg PO DAILY 01/23/24 01/23/24 hyoscyamine sulfate 0.125 mg mg 01/23/24 sublingual tablet pantoprazole 40 mg tablet,delayed mg PO 01/23/24 release tramadol 50 mg tablet mg 01/23/24 Allergies Allergy/AdvReac Type Severity Reaction Status Date / Time Penicillins Allergy Intermediate Verified 01/19/23 11:43 Review of Systems ROS Status of ROS 10 or more systems reviewed and unremark able except as noted in history and below [facility] Medical History (Updated 01/23/24 @ 18:27 by Holli Hobson MD) Stage 3a chronic kidney disease (CKD) ?N18.31 - Chronic kidney disease, stage 3a (ICD-10) Hypertension ?I10 - Essential (primary) hypertension (ICD-10) COPD (chronic obstructive pulmonary disease) ?J44.9 - Chronic obstructive pulmonary disease, unspecified (ICD-10) Pacemaker ?Z95.0 - Presence of cardiac pacemaker (ICD-10) Near syncope ?R55 - Syncope and collapse (ICD-10) Surgical History (Updated 01/19/23 @ 16:17 by Hallie Arceo) History of lumbar surgery ?Z98.890 - Other specified postprocedural states (ICD-10) Status post left foot surgery ?Z98.890 - Other specified postprocedural states (ICD-10) H/O: hysterectomy ?Z90.710 - Acquired absence of both cervix and uterus (ICD-10) Family History (Updated 01/19/23 @ 16:13 by Hallie Arceo) Daughter Family history of cancer Father Family history of cancer Family history of hypertension Mother Family history of cancer Family history of CHF (congestive heart failure) Family history of COPD (chronic obstructive pulmonary disease) Family history of myocardial infarction Social History (Updated 01/19/23 @ 16:12 by Hallie Arceo) Within the past year, how often did you have six or more drinks on one occasion: less than monthly Smoking status: Former smoker Non-prescribed substance use: over the counter (eg: immodium) Non-prescribed substance use details: baby asa, Krill 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 Known occupational exposures/hazards: No Highest level of school completed/degree received: Associate degree: occupational, technical, vocational program Do you want help with school or training: No Are you now , , , , never or living with a partner: In a typical week, how many times do you talk on the telephone with family, friends, or neighbors: 3 or more times per week How often do you get together with friends or relatives: 3 or more times per week How often do you attend restoration or hoahaoism services: never Do you belong to any clubs or organizations such as restoration groups unions, fraternal or athletic groups, or school groups: yes Total score: 2 Score interpretation: A score of greater than or equal to 2 indicates the lowest level of social isolation. Little interest or pleasure in doing things: not at all Feeling down, depressed, or hopeless: not at all Feel stressed/tense/nervous/anxious/difficulty sleeping: not at all Due to disability, difficulty making decisions: No Do you think of yourself as: straight/heterosexual Gender Identity: female Exam Narrative Exam Narrative: Nurses notes and vital signs reviewed and patient is not hypoxic. General: Well-appearing and in no apparent distress. Skin: Warm, dry, no pallor noted. No rash. Head: Normocephalic, atraumatic. Neck: Supple, non-tender. Eye: Pupils are equal, round and EOMI. No scleral icterus. Ears, Nose, Mouth, and Throat: TM are clear, no nasal mucosal hypertrophy. Oral mucosa is moist, no posterior oropharynx erythema, uvula is mid-line Cardiovascular: Regular Rate and Rhythm without murmur, gallop or rub. Respiratory: No accessory muscle use or respiratory distress. Lungs are clear to auscultation, no wheezing, rales or rhonchi Chest Wall: no tenderness Back: No midline thoracic or lumbar vertebral tenderness. No CVA tenderness Musculoskeletal: Bilateral chronic edema with Nasir wrap applied GI: Abdomen is soft, non-distended. Normal bowel sounds. No masses appreciated. No tenderness to palpation. No rebound, guarding, or rigidity noted. Neurological: A&O x4. No cranial nerve dysfunction observed. No truncal ataxia. Moves all extremities. Sensation intact. Psychiatric: Cooperative and interactive. Normal mood and affect. Constitutional Vital Signs, click to edit/add: Last Vital Signs Temp 98.2 F 01/23/24 17:05 Pulse 72 01/23/24 18:40 Resp 19 01/23/24 18:40 BP 161/66 H 01/23/24 18:40 Pulse Ox 94 L 01/23/24 18:40 O2 Del Method Room Air 01/23/24 17:05 Course Vital Signs Vital signs: Vital Signs Temperature 98.2 F 01/23/24 17:05 Pulse Rate 80 01/23/24 17:05 Respiratory Rate 22 H 01/23/24 17:05 Blood Pressure 169/69 H 01/23/24 17:05 Pulse Oximetry 97 01/23/24 17:05 Oxygen Delivery Method Room Air 01/23/24 17:05 Temperature 98.2 F 01/23/24 17:05 Pulse Rate 72 01/23/24 18:40 Respiratory Rate 19 01/23/24 18:40 Blood Pressure 161/66 H 01/23/24 18:40 Pulse Oximetry 94 L 01/23/24 18:40 Oxygen Delivery Method Room Air 01/23/24 17:05 MDM - Chest Pain MDM Narrative Medical decision making narrative: The patient EKG showing a paced rhythm no ST elevation or depression heart rate was 81 The patient troponin was negative upon arrival and her presentation although she did have some elevated blood pressure it is seem to be atypical As the patient has been having this pain for the at least the last 5 days and it did get worse over the last few days The patient is having acid reflux sensation in her throat and pain could be secondary to esophageal spasm due to a GERD as well The patient right now will have the troponin repeated in addition to the potassium as it was 5.3 on the first test The patient care will be transferred to Dr. Sanchez awaiting the results of the troponin and the potassium The patient already had a stress test done within the last 2 years and it was normal and with her current presentation I did educate her about lifestyle modification Lab Data Labs: Lab Results 01/23/24 Range/Units 17:16 WBC 8.2 (4.0-11.0) 10^3/uL RBC 4.17 L (4.20-5.40) 10^6/uL Hgb 12.2 (12.0-16.0) g/dL Hct 39.5 (36.0-48.0) % MCV 94.7 (81.0-99.0) fL MCH 29.3 (26.7-34.0) pg MCHC 30.9 (29.9-35.2) g/dL RDW 14.1 (11.0-15.0) % Plt Count 206 (150-450) 10^3/uL MPV 9.3 L (9.5-13.5) fL Neut % (Auto) 69.7 (43.0-75.0) % Lymph % (Auto) 17.8 L (20.5-60.0) % [place] % (Auto) 10.5 (1.7-12.0) % Eos % (Auto) 1.1 (0.9-7.0) % Baso % (Auto) 0.5 (0.2-2.0) % Neut # (Auto) 5.7 (1.4-6.5) 10^3/uL Lymph # (Auto) 1.5 (1.2-3.8) 10^3/uL [place] # (Auto) 0.9 H (0.3-0.8) 10^3/uL Eos # (Auto) 0.1 (0.0-0.7) 10^3/uL Baso # (Auto) 0.0 (0.0-0.1) 10^3/uL Abs Immat Gran (auto) 0.03 (0.00-0.03) 10^3/uL Imm/Tot Granulo (auto) 0.4 (0.0-0.5) % PT 10.6 (9.0-11.6) sec INR 1.00 Sodium 143 (136-145) mmol/L Potassium 5.3 H (3.5-5.1) mmol/L Chloride 111 H (98-107) mmol/L Carbon Dioxide 23.5 (21.0-32.0) mmol/L Anion Gap 13.8 BUN 30.0 H (7.0-18.0) mg/dL Creatinine 1.80 H (0.55-1.02) mg/dL Est GFR ( Amer) 34 L (>=60 mL/min/1.73m^2) Est GFR (Non-Af Amer) 28 L (>=60 mL/min/1.73m^2) BUN/Creatinine Ratio 16.7 Glucose 87 (74-106) mg/dL Calcium 9.1 (8.5-10.1) mg/dL Total Bilirubin 0.4 (0.2-1.0) mg/dL AST 11 L (15-37) U/L ALT 9 L (14-59) U/L Alkaline Phosphatase 77 (46-116) U/L Troponin I High Sens 11.0 (4.0-51.3) pg/mL Total Protein 6.6 (6.4-8.2) g/dL Albumin 3.0 L (3.4-5.0) g/dL Globulin 3.6 g/dL Albumin/Globulin Ratio 0.8 Discharge Plan Discharge Patient Disposition: Still a Patient
[2024-01-23 19:38] LABS: Potassium 5.5 mmol/L (3.5-5.1); Troponin I High Sensitivity 11.7 pg/mL (4.0-51.3)
--- NOTE | 2024-01-23 20:06 | ED.CHESTPAI1 ---
HPI - Chest Pain General Chief Complaint: Chest Pain Stated Complaint: CHEST PAIN Time Seen by Provider: 01/23/24 17:06 Source: patient Mode of arrival: walk-in History of Present Illness HPI narrative: 73-year-old female presented to the emergency department and was initially seen by Dr. Hobson and signed out to me after discussing the case with her thoroughly. Please see her full history and physical exam Related Data Home Medications ?Medication ?Instructions ?Recorded ?Confirmed bumetanide 1 mg tablet 1 mg PO DAILY PRN edema 01/19/23 01/23/24 carvedilol 25 mg tablet 12.5 mg PO BID 01/19/23 01/23/24 diclofenac sodium 75 mg 75 mg PO BID 01/19/23 01/23/24 tablet,delayed release hydralazine 100 mg tablet 100 mg PO TID 01/19/23 01/23/24 isosorbide mononitrate 30 mg 30 mg PO DAILY 01/19/23 01/23/24 tablet,extended release 24 hr levothyroxine 100 mcg tablet 100 mcg PO DAILY 01/19/23 01/23/24 liothyronine 25 mcg tablet 25 mcg PO DAILY 01/19/23 01/23/24 (Cytomel) lisinopril 10 mg tablet 10 mg PO DAILY 01/19/23 01/23/24 lovastatin 20 mg tablet 20 mg PO DAILY 01/19/23 01/23/24 revefenacin 175 mcg/3 mL solution 175 mcg inhalation DAILY 01/19/23 01/23/24 for nebulization (Yupelri) aspirin 81 mg capsule 81 mg PO DAILY 01/23/24 01/23/24 hyoscyamine sulfate 0.125 mg mg 01/23/24 sublingual tablet pantoprazole 40 mg tablet,delayed mg PO 01/23/24 release tramadol 50 mg tablet mg 01/23/24 Allergies Allergy/AdvReac Type Severity Reaction Status Date / Time Penicillins Allergy Intermediate Verified 01/19/23 11:43 [facility] Medical History (Updated 01/23/24 @ 20:05 by Rogelio Sanchez MD) Stage 3a chronic kidney disease (CKD) ?N18.31 - Chronic kidney disease, stage 3a (ICD-10) Hypertension ?I10 - Essential (primary) hypertension (ICD-10) COPD (chronic obstructive pulmonary disease) ?J44.9 - Chronic obstructive pulmonary disease, unspecified (ICD-10) Pacemaker ?Z95.0 - Presence of cardiac pacemaker (ICD-10) Near syncope ?R55 - Syncope and collapse (ICD-10) Surgical History (Updated 01/19/23 @ 16:17 by Hallie Arceo) History of lumbar surgery ?Z98.890 - Other specified postprocedural states (ICD-10) Status post left foot surgery ?Z98.890 - Other specified postprocedural states (ICD-10) H/O: hysterectomy ?Z90.710 - Acquired absence of both cervix and uterus (ICD-10) Family History (Updated 01/19/23 @ 16:13 by Hallie Arceo) Daughter Family history of cancer Father Family history of cancer Family history of hypertension Mother Family history of cancer Family history of CHF (congestive heart failure) Family history of COPD (chronic obstructive pulmonary disease) Family history of myocardial infarction Social History (Updated 01/19/23 @ 16:12 by Hallie Arceo) Within the past year, how often did you have six or more drinks on one occasion: less than monthly Smoking status: Former smoker Non-prescribed substance use: over the counter (eg: immodium) Non-prescribed substance use details: Quique curtis asa 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 Known occupational exposures/hazards: No Highest level of school completed/degree received: Associate degree: occupational, technical, vocational program Do you want help with school or training: No Are you now , , , , never or living with a partner: In a typical week, how many times do you talk on the telephone with family, friends, or neighbors: 3 or more times per week How often do you get together with friends or relatives: 3 or more times per week How often do you attend christianity or worship services: never Do you belong to any clubs or organizations such as christianity groups unions, fraternal or athletic groups, or school groups: yes Total score: 2 Score interpretation: A score of greater than or equal to 2 indicates the lowest level of social isolation. Little interest or pleasure in doing things: not at all Feeling down, depressed, or hopeless: not at all Feel stressed/tense/nervous/anxious/difficulty sleeping: not at all Due to disability, difficulty making decisions: No Do you think of yourself as: straight/heterosexual Gender Identity: female Exam Constitutional Vital Signs, click to edit/add: Last Vital Signs Temp 98.2 F 01/23/24 17:05 Pulse 80 01/23/24 19:30 Resp 22 H 01/23/24 19:30 BP 161/66 H 01/23/24 18:40 Pulse Ox 95 01/23/24 19:30 O2 Del Method Room Air 01/23/24 17:05 Course Vital Signs Vital signs: Vital Signs Temperature 98.2 F 01/23/24 17:05 Pulse Rate 80 01/23/24 17:05 Respiratory Rate 22 H 01/23/24 17:05 Blood Pressure 169/69 H 01/23/24 17:05 Pulse Oximetry 97 01/23/24 17:05 Oxygen Delivery Method Room Air 01/23/24 17:05 Temperature 98.2 F 01/23/24 17:05 Pulse Rate 80 01/23/24 19:30 Respiratory Rate 22 H 01/23/24 19:30 Blood Pressure 161/66 H 01/23/24 18:40 Pulse Oximetry 95 01/23/24 19:30 Oxygen Delivery Method Room Air 01/23/24 17:05 MDM - Chest Pain MDM Narrative Medical decision making narrative: Repeat troponin is normal. Repeat potassium is mildly elevated. She has a history of this issue and takes Kayexalate 3 times a week, Wednesday and Wednesday. She will take an extra dose tonight and then resume her usual dosing tomorrow. She states now that her chest pain is gone. Treatment diagnosis and follow-up were discussed with the patient. Differential Diagnosis Differential diagnosis: Likely pneumothorax, stable angina, unstable angina pectoris, atypical chest pain, st elevation myocardial infarction and chest pain Lab Data Attestation: I reviewed the patient's lab results. Labs: Lab Results 01/23/24 01/23/24 Range/Units 17:16 19:03 WBC 8.2 (4.0-11.0) 10^3/uL RBC 4.17 L (4.20-5.40) 10^6/uL Hgb 12.2 (12.0-16.0) g/dL Hct 39.5 (36.0-48.0) % MCV 94.7 (81.0-99.0) fL MCH 29.3 (26.7-34.0) pg MCHC 30.9 (29.9-35.2) g/dL RDW 14.1 (11.0-15.0) % Plt Count 206 (150-450) 10^3/uL MPV 9.3 L (9.5-13.5) fL Neut % (Auto) 69.7 (43.0-75.0) % Lymph % (Auto) 17.8 L (20.5-60.0) % Sutter % (Auto) 10.5 (1.7-12.0) % Eos % (Auto) 1.1 (0.9-7.0) % Baso % (Auto) 0.5 (0.2-2.0) % Neut # (Auto) 5.7 (1.4-6.5) 10^3/uL Lymph # (Auto) 1.5 (1.2-3.8) 10^3/uL Sutter # (Auto) 0.9 H (0.3-0.8) 10^3/uL Eos # (Auto) 0.1 (0.0-0.7) 10^3/uL Baso # (Auto) 0.0 (0.0-0.1) 10^3/uL Abs Immat Gran (auto) 0.03 (0.00-0.03) 10^3/uL Imm/Tot Granulo (auto) 0.4 (0.0-0.5) % PT 10.6 (9.0-11.6) sec INR 1.00 Sodium 143 (136-145) mmol/L Potassium 5.3 H 5.5 H (3.5-5.1) mmol/L Chloride 111 H (98-107) mmol/L Carbon Dioxide 23.5 (21.0-32.0) mmol/L Anion Gap 13.8 BUN 30.0 H (7.0-18.0) mg/dL Creatinine 1.80 H (0.55-1.02) mg/dL Est GFR ( Amer) 34 L (>=60 mL/min/1.73m^2) Est GFR (Non-Af Amer) 28 L (>=60 mL/min/1.73m^2) BUN/Creatinine Ratio 16.7 Glucose 87 (74-106) mg/dL Calcium 9.1 (8.5-10.1) mg/dL Total Bilirubin 0.4 (0.2-1.0) mg/dL AST 11 L (15-37) U/L ALT 9 L (14-59) U/L Alkaline Phosphatase 77 (46-116) U/L Troponin I High Sens 11.0 11.7 (4.0-51.3) pg/mL Total Protein 6.6 (6.4-8.2) g/dL Albumin 3.0 L (3.4-5.0) g/dL Globulin 3.6 g/dL Albumin/Globulin Ratio 0.8 Imaging Data Chest x-ray: Radiologist's impression: ITS Impressions Chest X-Ray 01/23/24 17:07 Impression: No radiographic evidence of acute cardiopulmonary process. Electronically authenticated by: KAREN KEITH Date: 01/23/2024 17:52 Heart Score History: Slightly/Non-Suspicious ECG: Normal Age: >65 years Risk Factors: >3 Risk Factors/ HX of CAD:2 Troponin: <Normal Limit Total Heart Score Recommendations & Risks:: 4 Discharge Plan Discharge Chief Complaint: Chest Pain Clinical Impression: Atypical chest pain, Hyperkalemia Patient Disposition: Home, Self-Care Time of Disposition Decision: 20:04 Condition: Good Mode of Transportation: Private Vehicle Prescriptions / Home Meds: No Action pantoprazole 40 mg tablet,delayed release (DR/EC) PO hyoscyamine sulfate 0.125 mg tablet, sublingual aspirin 81 mg capsule 81 mg PO DAILY tramadol 50 mg tablet bumetanide 1 mg tablet 1 mg PO DAILY PRN (Reason: edema) carvedilol 25 mg tablet 12.5 mg PO BID hydralazine 100 mg tablet 100 mg PO TID isosorbide mononitrate 30 mg tablet extended release 24 hr 30 mg PO DAILY levothyroxine 100 mcg tablet 100 mcg PO DAILY lisinopril 10 mg tablet 10 mg PO DAILY lovastatin 20 mg tablet 20 mg PO DAILY Yupelri 175 mcg/3 mL solution for nebulization 175 mcg inhalation DAILY diclofenac sodium 75 mg tablet,delayed release (DR/EC) 75 mg PO BID liothyronine [Cytomel] 25 mcg tablet 25 mcg PO DAILY Print Language: Faroese Instructions: Chest Pain (ED), Potassium Content of Foods List (ED) Additional Instructions: Take a dose of the sodium polystyrene sulfonate tonight and then resume your usual dosing tomorrow. Referrals: Jeremiah Arvizu MD [Primary Care Provider] - 1 week
== END 2024-01-23 20:27 | disposition home or self-care (01) ==
PROVIDERS: Emergency Medicine; Emergency Provider Emergency Medicine; PCP Family Medicine
DX: R07.89 Other chest pain (principal); E87.5 Hyperkalemia; Z95.0 Presence of cardiac pacemaker; Z87.891 Personal history of nicotine dependence; J44.9 Chronic obstructive pulmonary disease, unspecified
CPT/HCPCS: 36415; 71045; 80053; 84132; 84484; 85025; 85610; 93005; 96374; 99285

== ENCOUNTER 2024-01-31 11:39 | Outpatient (OUT) | payer MEDICARE, SELFPAY ==
--- OUTSIDE RECORDS SUMMARY | 2024-01-31 11:54 | XMS_ITS | CCD ---
Author Organization [facility] Care Team Providers Care Special Projects Manager Name Role Phone PHYSICIAN, DEFAULT Unavailable Unavailable PHYSICIAN, DEFAULT Unavailable Unavailable DEBBIE ARVIZU Unavailable Unavailable SRIRAM ., DR LEWIS Consulting Unavailable HOY ., DR LEWIS Attending Unavailable HOY ., DR LEWIS Primary Care Unavailable HOY ., DR LEWIS Admitting Unavailable GALT, DR RAJI Odonnell Consulting Unavailable HOY ., DR LEWIS Consulting Unavailable HOY ., DR LEWIS Attending Unavailable HOY ., DR LEWIS Primary Care Unavailable HOY ., DR LEWIS Admitting Unavailable HOY ., DR LEWIS Primary Care Unavailable HOY ., DR LEWIS Consulting Unavailable JAMES HURTADOSON Admitting Unavailable CAPO HURTADO Attending Unavailable HOLula .DR LEWIS Primary Care Unavailable Ambar Moon Consulting Unavailable CAPO HURTADO Attending Unavailable JAMES HURTADOSON Admitting Unavailable CAPO HURTADO Consulting Unavailable JOSEY KWOK Admitting Unavailable HOLula .DR LEWIS Primary Care Unavailable JOSEY KWOK Consulting Unavailable JOSEY KWOK Attending Unavailable JOSEY KWOK Consulting Unavailable SRIRAM .DR LEWIS Primary Care Unavailable JOSEY KWOK Attending Unavailable JOSEY KWOK Admitting Unavailable HOLula .DR LEWIS Primary Care Unavailable SAMSA ., AMANDA Attending Unavailable SAMSA ., AMANDA Admitting Unavailable SAMSA ., AMANDA Consulting Unavailable SRIRAM .DR LEWIS Primary Care Unavailable JULIANNE .EUN Admitting Unavailable JULIANNE .EUN Attending Unavailable SOMMER POLLOCK Consulting Unavailable SRIRAM .DR LEWIS Primary Care Unavailable MISC, DR LOPEZ Admitting Unavailable MISC, DR LOPEZ Attending Unavailable SRIRAM .DR LEWIS Primary Care Unavailable SAMSA ., AMANDA Attending Unavailable SAMSA ., AMANDA Admitting Unavailable Ambar Moon Consulting Unavailable SAMSA ., AMANDA Consulting Unavailable [...] Unavailable HOY ., DR LEWIS Admitting Unavailable GALT, DR RAJI Odonnell Consulting Unavailable Desmond ANDERS Attending Unavailable SUNDAR, JOSEY Attending Unavailable JOSEY KWOK Referring Unavailable SUNDAR, JOSEY Attending Unavailable JENNIFER ACOSTA Referring Unavailable JOSE ANGEL MEEHAN Referring Unavailable JOSE ANGEL MEEHAN Referring Unavailable JOSE ANGEL MEEHAN Attending Unavailable JOSE ANGEL MEEHAN Referring Unavailable JOSE ANGEL MEEHAN Referring Unavailable NAWRAS, DARIO Attending Unavailable NATALIA KUHN Referring Unavaila ble TATO SALCIDO Attending Unavailable JOSE ANGEL MEEHAN Attending Unavailable NATALIA KUHN Attending Unavaila ble TIAN FELTON Attending Unavailable JOSE ANGEL MEEHAN Attending Unavailable Allergies Allergy Classification Reported Allergen(s) Allergy Type Date of Onset Reaction(s) Facility (5 sources) Penicillins; Translations: [PENICILLINS] Drug allergy (disorder) 5 AOF, Unknown Reaction [facility] Repository (1 source) Adhesive Tape Allergy to substance 4 skin rash [facility] Medications Current Medications Medication Drug Class(es) Dates Sig (Normalized) Sig (Original) [id number] 200 actuat albuterol 0.09 mg/actuat metered dose [...] 25 mg oral tablet (1 source) alpha-Adrenergic Florence, beta-Adrenergic Florence Start: 01-06-2024 take 12.5 mg by mouth [...] Problem Classification Problem Date Documented Date Episodic/Chronic Abdominal pain (4 sources) Epigastric pain; Translations: [Unspecified abdominal pain] Onset: 3 Episodic Cardiac dysrhythmias (4 sources) Supraventricular tachycardia; Translations: [SUPRAVENTRICULAR TACHYCARDIA] Onset: 3 Chronic Chronic kidney disease (3 sources) Chronic kidney disease stage 4; Translations: [Chronic kidney disease, stage 4 (severe)] 01-06-2024 Chronic Chronic kidney disease (2 sources) Chronic kidney disease; Translations: [Chronic kidney disease, stage 3b] Onset: 4 Conduction disorders (2 sources) Presence of cardiac pacemaker; Translations: [Presence of cardiac pacemaker] Onset: 4 Chronic Congestive heart failure; nonhypertensive (3 sources) Acute combined systolic (congestive) and diastolic (congestive) heart failure; Translations: [Unspecified diastolic (congestive) heart failure] Onset: 2 Chronic Disorders of lipid metabolism (2 sources) Hyperlipidemia, unspecified; Translations: [Pure hypercholesterolemia, unspecified] Onset: 2 Chronic Esophageal disorders (2 sources) Gastro-esophageal reflux disease without esophagitis; Translations: [Gastro-esophageal reflux disease without esophagitis] Onset: 3 Chronic Fluid and electrolyte disorders (2 sources) [...] Translations: [Other persistent atrial fibrillation] Onset: 3 Past or Other Problems Problem Classification Problem Date Documented Da te Episodic/Chronic Cardiac dysrhythmias (5 sources) Palpitations; Translations: [PALPITATIONS] Onset: 01-14-2022 Episodic Deficiency and other anemia (1 source) Anemia, unspecified; Translations: [ANEMIA UNSPECIFIED] Onset: 01-19-2022 Episodic E Codes: Cut/pierceb (1 source) Contact with other sharp object(s), not elsewhere classified, initial encounter; Translations: [[facility] OT SHRP OB NOT ELSW CLASS INI] Onset: 08-14-2021 Episodic Gastritis and duodenitis (2 sources) Duodenitis without bleeding; Translations: [Duodenitis without bleeding] Onset: 02-09-2023 Episodic Noninfectious gastroenteritis (2 sources) Noninfective gastroenteritis and colitis, unspecified; Translations: [Noninfective gastroenteritis and colitis, unspecified] Onset: 02-09-2023 Episodic Nonspecific chest pain (1 source) Chest pain, unspecified; Translations: [CHEST PAIN UNSPECIFIED] Onset: 01-29-2022 Episodic Open wounds of extremities (4 sources) Laceration without foreign body, right lower leg, initial encounter; Translations: [LACERATION W/O FB RT LOW LEG INIT] Onset: 08-12-2021 Episodic Other aftercare (1 source) Other moth exterminator (current) drug therapy; Translations: [[facility] CURRENT DRUG THERAPY] Onset: 08-14-2021 Episodic Other and unspecified benign neoplasm (1 source) Personal history of colonic polyps; Translations: [PERSONAL HISTORY OF COLONIC POLYPS] Onset: 08-14-2021 Episodic Other circulatory disease (1 source) Other specified symptoms and signs involving the circulatory and respiratory systems; Translations: [OT SPEC SX SIGNS INVLV CIRC RS] Onset: 10-29-2021 Episodic Other diseases of veins and lymphatics (1 source) Venous insufficiency (chronic) (peripheral); Translations: [VENOUS INSUFF CHRONIC PERIPHERAL] Onset: 01-19-2022 Episodic Other gastrointestinal disorders (2 sources) Change in bowel habit; Translations: [Change in bowel habit] Onset: 02-09-2023 Episodic Other lower respiratory disease (4 sources) [...] of malignant neoplasm of digestive organs] Onset: 02-09-2023 Episodic Residual codes; unclassified (2 sources) Family history of other diseases of the digestive system; Translations: [Family history of other diseases of the digestive system] Onset: 02-09-2023 Episodic Screening and history of mental health [...] Translations: [Vertebrogenic low back pain] Onset: 11-23-2023 Results Test Name Value Interpretation Reference Range Facility Office Visiton 01-26-2024 Follow-up visit [id number] Brian Sadler se 1950 F Date Provider Department Center 01/26/2024 Jj-TATO SALCIDO CARD [facility] Family History Problem Relation Age of Onset Other Mother Coronary artery disease Mother Other Mother Other Mother Other Father Hypertension Father Hyperlipidemia Father Other Daughter Family Status - Relation Status Age at Mother Father Daughter Level of Service:14614 [place] OFFICE/OUTPATIENT ESTABLISHED LOW MDM 20 MIN Normal [facility] MR LUMBAR SPINE WO CONTRASTo n 11-23-2023 [...] foraminal narrowing. Electronically signed: Arnol Cutler MD. Normal [facility] Comment on above: Order Comment: ORDER IN EPIC NURSNOTEon 11-23-2023 NURSNOTE Ced from [employer] prepped pacemaker. Patient verbalizes no issues with device. Monitor hooked up for continuous patient monitoring throughout the scan. Normal [facility] Office Visiton 10-26-2023 Follow-up visit [id number] Brian Sadler [facility] 1950 F Date Provider Department Center 10/26/2023 Halina-JOSEY KWOK [facility] Family History Problem Relation Age of Onset Other Mother Coronary artery disease Mother Other Mother Other Mother Other Father Hypertension Father Hyperlipidemia Father Other Daughter Family Status - Relation Status Age at Mother Father Daughter Level of Service:51005 [place] OFFICE/OUTPATIENT ESTABLISHED LOW MDM 20 MIN Normal [facility] Office Visiton 07-20-2023 Follow-up visit [id number] Brian Sadler se 1950 Date Provider Department Center 07/20/2023 [id number] FELTON [facility] NEPHRO Comprehensiv Family History Problem Relation Age of Onset Other Mother Coronary artery disease Mother Other Mother Other Mother Other Father Hypertension Father Hyperlipidemia Father Other Daughter Family Status - Relation Status Age at Mother Father Daughter Level of Service:04243 [place] OFFICE/OUTPATIENT ESTABLISHED LOW MDM 20 MIN Reason for Visit and Comments: Follow-up [[id number]] Normal [facility] CREATININE, URINE, RANDOMon 07-09-2023 Creatinine (U) [Mass/Vol] 142.0 mg/dL Normal 26-299 [facility] Comment on above: Performed By: #### L [id number] #### [facility] ([facility]) [address] [address] Performed By: #### L [id number] #### [facility] ([facility]) [address] [place] [address] Follow-Upon 07-09-2023 Follow-Up [id number] Brian Sadler se 1950 F Date Provider Department Center 07/09/2023 JOSE ANGEL LEE MP [facility] Family History Problem Relation Age of Onset Other Mother Coronary artery disease Mother Other Mother Other Mother Other Father Hypertension Father Hyperlipidemia Father Other Daughter Family Status - Relation Status Age at Mother Father Daughter Level of Service:76249 [place] OFFICE/OUTPATIENT ESTABLISHED LOW MDM 20 MIN Reason for Visit and Comments: Follow-up [253432] - F/U S/P TFESI S1 - 30% pain relief Normal [facility] MICROALBUMIN, URINE, RANDOMo n 07-09-2023 Albumin DL <= 20 mg/L (U) [Mass/Vol] 2.3 mg/dL Normal [facility] Comment on above: Performed By: #### L [id number] #### [facility] ([facility]) [address] [place] [address] MICROALBUMIN/CREAT ININE (MG/G) IN URINE 16.2 mg/g Creat Normal 0.0-30.0 [facility] Comment on above: Performed By: #### L [id number] #### [facility] ([facility]) [address] [place] [address] PROTEIN, URINE, RANDOMon Protein (U) [Mass/Vol] 16.6 mg/dL Normal [facility] Comment on above: Result Comment: Ther e are no established reference values for random urine specimens. Performed By: #### L [id number] #### [facility] ([facility]) [address] [place] [address] RENAL FUNCTION PANELon 07-08 Albumin [Mass/Vol] 3.9 g/dL Normal 3.5-5.7 [facility] Comment on above: Performed By: #### L [id number] #### [facility] ([facility]) [address] [place] [address] Anion gap [Moles/Vol] 11 mmol/L Normal 7-20 [facility] Comment on above: Performed By: #### L [id number] #### [facility] ([facility]) [address] [place] [address] CALCIUM (MG/DL) CORRECTED FOR ALBUMIN IN SER/PLAS 9.18 mg/dL Normal [facility] Comment on above: Performed By: #### L [id number] #### [facility] ([facility]) [address] [place] [address] Calcium [Mass/Vol] 9.1 mg/dL Normal 8.6-10.3 [facility] Comment on above: Performed By: #### L [id number] #### [facility] ([facility]) [address] [place] [address] Chloride [Moles/Vol] 109 mmol/L High 98-107 [facility] Comment on above: Performed By: #### L [id number] #### [facility] ([facility]) [address] [place] [address] CO2 [Moles/Vol] 25 mmol/L Normal 21-31 [facility] Comment on above: Performed By: #### L [id number] #### [facility] ([facility]) [address] [place] [address] Creatinine [Mass/Vol] 2.24 mg/dL High 0.60-1.20 [facility] Comment on above: Performed By: #### L [id number] #### [facility] ([facility]) [address] [place] [address] FASTING? UNKNOWN Normal [facility] Comment on above: Performed By: #### L [id number] #### [facility] [address] [place] [address] GLOMERULAR FILTRATION RATE ML/MIN/1.73 SQ M.PREDICTED 22.7 mL/min/1.73m*2 Low >60.0 [facility] Comment on above: Result Comment: [facility]'s estimated glomerular filtration rate (eGFR) will no [...] individuals. Performed By: #### L [id number] #### [facility] ([facility]) [address] [place] [address] Glucose [Mass/Vol] 83 mg/dL Normal 70-100 [facility] Comment on above: Performed By: #### L [id number] #### [facility] ([facility]) [address] [place] [address] Magnesium [Mass/Vol] 3.7 mg/dL Normal 2.5-5.0 [facility] Comment on above: Performed By: #### L [id number] #### [facility] ([facility]) [address] [place] [address] Potassium [Moles/Vol] 5.8 mmol/L High 3.5-5.1 [facility] Comment on above: Performed By: #### L [id number] #### [facility] ([facility]) [address] [place] [address] Sodium [Moles/Vol] 139 mmol/L Normal 136-145 [facility] Comment on above: Performed By: #### L [id number] #### [facility] ([facility]) [address] [place] [address] Urea nitrogen [Mass/Vol] 46 mg/dL High 7-25 [facility] Comment on above: Performed By: #### L [id number] #### [facility] ([facility]) [address] [place] [address] UREA NITROGEN/CREATININ E (MASS RATIO) IN SER/PLAS 20.5 Normal [facility] Comment on above: Performed By: #### L [id number] #### [facility] ([facility]) [address] [place] [address] TSHon 07-09-2023 THYROTROPIN (MIU/L) IN SER/PLAS BY DETECTION LIMIT <= 0.05 MIU/L 0.03 mIU/L Low 0.34-5.60 [facility] Comment on above: Performed By: #### L [id number] ####[facility] ([facility])[address] [place] [address] Orders Onlyon 06-22-2023 Orders Only [id number] Brian Sadler se Shamika 1950 F Date Provider Department Center 06/22/2023 EMMANUEL BECK [facility] NEPHRO Comprehensiv Family History Problem Relation Age of Onset Other Mother Coronary artery disease Mother Other Mother Other Mother Other Father Hypertension Father Hyperlipidemia Father Other Daughter Family Status - Relation Status Age at Mother Father Daughter Normal [facility] ANESon 05-31-2023 ANES ---- -------- Attestation signed [...] kidney disease COPD (chronic obstructive pulmonary disease) ([facility]) Hypertension Myocardial infarction ([facility]) Obstructive sleep apnea 10/02/2022 SOBIA=17.7 events/hour; Pranav SaO2=76%; Odnvop=575.0 lbs; BMI=52.7 kg/m2, Home Sleep Apnea Testing on 09/25/2022 at [facility] Principle problems: Patient Active Problem List Diagnosis Date Noted 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 Symptomatic bradycardia 01/01/2023 Other secondary pulmonary hypertension ([facility]) 12/15/2022 KATIE on CPAP 12/15/2022 Nonsustained paroxysmal ventricular tachycardia ([facility]) 11/30/2022 A-fib ([facility]) 04/21/2022 Spinal stenosis of lumbar region with neurogenic claudication 01/30/2022 Lower abdominal pain 01/30/2022 Spondylosis of lumbosacral region without myelopathy or radiculopathy 01/30/2022 Essential hypertension 01/25/2020 Chest pain 07/27/2016 Dyspnea 07/27/2016 Edema 07/27/2016 Fatigue 07/27/2016 Lightheadedness 07/27/2016 Obstructive sleep apnea 10/02/2022 VT (ventricular tachycardia) ([facility]) 04/29/2022 Clinical trial exam 04/23/2022 Allergies: Allergies Allergen Reactions Penicillins Other Yeast infection DIRECTOR OF SUSTAINABILITY PROGRAMS/Current Medications: (Not in a hospital admission) Current [...] prevent worse bloating. 479 g 3 omega 3-ztr-axv-fish oil 350 mg-235 mg- 90 mg-597 mg [...] exam B (more content not included)... Normal [facility] HPon 05-31-2023 History Of Present Illness Vero Sadler is a 73 y.o. female presenting with low back pain Past Medical History She has a past medical history of Abnormal ECG, Adverse effect of anesthesia, Arthritis, Chronic kidney disease, COPD (chronic obstructive pulmonary disease) ([facility]), Hypertension, Myocardial infarction ([facility]), and Obstructive sleep apnea (10/02/2022). Surgical History [...] Sedation: MAC Attending Physician: Dr. Dario Alarcon Mining Helper: Nancy Prado, Fellow Procedure Details Informed consent [...] included. Esophagogastroduod (more content not included)... Normal [facility] ---- -------- Attestation signed by Jose Angel [...] kidney disease, COPD (chronic obstructive pulmonary disease) ([facility]), Hypertension, Myocardial infarction ([facility]), and Obstructive sleep apnea (10/02/2022). Surgical History [...] and Crohn's disease in her mother. [place] [facility] Attending Physician: Dr. Dario Alarcon Mining Helper: Nancy Prado, Fellow Procedure Details Informed consent [...] Poor colon prep. (more content not included)... [facility] Prep for Procedureon 024 Prep for Procedure [id number] Brian Sadler se 1950 F Date Provider Department Center 05/24/2023 POONAM SINGLETON MP [facility] Family History Problem Relation Age of Onset Other Mother Coronary artery disease Mother Other Mother Other Mother Other Father Hypertension Father Hyperlipidemia Father Other Daughter Family Status - Relation Status Age at Mother Father Daughter [facility] 36on 04-22-2023 36 Patient contacted an d [...] sometimes takes 48 -72 hours for the doctors/DATA PROCESSING CLERK's to return messages. Apologized that we were not able to meet her needs and voiced that we understand her feelings and decision not to utilized services at this time [facility] 36on 04-19-2023 36 Vero has called, stating she is not feeling well, in Re: recurrent diarrhea /not feeling well and she mention a breathing test they may not work, she is looking for answers to why she is not feeling well in a lot of pain, please advise with patient [phone] ???This phone message was created by the ambulatory float staff. If you need sales support coordinator follow up regarding this patient, please make your appropriate clinic staff member aware, Thank you??? Normal [facility] Telephoneon 04-19-2023 Telephone [id number] Brian Sadler se 1950 Date Provider Department Center 04/19/2023 [id number] KUHN*NISHA [facility] Family History Problem Relation Age of Onset Other Mother Coronary artery disease Mother Other Mother Other Mother Other Father Hypertension Father Hyperlipidemia Father Other Daughter Family Status - Relation Status Age at Mother Father Daughter Normal [facility] Prep for Procedureon 024 Prep for Procedure [id number] Brian Sadler se 1950 Date Provider Department [place] 04/12/2023 Carlos-LEENA MASON MP [facility] Family History Problem Relation Age of Onset Other Mother Coronary artery disease Mother Other Mother Other Mother Other Father Hypertension Father Hyperlipidemia Father Other Daughter Family Status - Relation Status Age at Mother Father Daughter Normal [facility] Prep for Procedureon 024 Prep for Procedure [id number] Brian Sadler se 1950 Provider Department [place] 03/31/2023 JOSE ANGEL LEE MP [facility] Family History Problem Relation Age of Onset Other Mother Coronary artery disease Mother Other Mother Other Mother Other Father Hypertension Father Hyperlipidemia Father Other Daughter Family Status - Relation Status Age at Mother Father Daughter Normal [facility] Follow-Upon 03-26-2023 Follow-Up [id number] Brian Sadler se 1950 Date Provider Department Center 03/26/2023 JOSE ANGEL LEE MP PAIN [facility] Family History Problem Relation Age of Onset Other Mother Coronary artery disease Mother Other Mother Other Mother Other Father Hypertension Father Hyperlipidemia Father Other Daughter Family Status - Relation Status Age at Mother Father Daughter Level of Service:80165 [place] OFFICE/OUTPATIENT ESTABLISHED LOW MDM 20 MIN () Reason for Visit and Comments: Follow-up [[id number]] - Physical Therapy only did a couple days of PT because of COPD and chest hurting [facility] Office Visiton 03-23-2023 Follow-up visit [id number] Brian Sadler se 1950 Provider Department Center 03/23/2023 241-SUNDAR JOSEY LEEANN [facility] Family History Problem Relation Age of Onset Other Mother Coronary artery disease Mother Other Mother Other Mother Other Father Hypertension Father Hyperlipidemia Father Other Daughter Family Status - Relation Status Age at Mother Father Daughter Level of Service:84771 [place] OFFICE/OUTPATIENT ESTABLISHED LOW MDM 20 MIN [facility] Letter (Out)on 02-23-2023 Letter (Out) [id number] Brian Sadler se 1950 Provider Department Center 02/23/2023 Severiano-NANCY PRADO MP [facility] Family History Problem Relation Age of Onset Other Mother Coronary artery disease Mother Other Mother Other Mother Other Father Hypertension Father Hyperlipidemia Father Other Daughter Family Status - Relation Status Age at Mother Father Daughter [facility] 36on 02-22-2023 36 Spoke with patient aniceto rodgers voiced understanding not to complete the MRI at this time due to kidneys. Advised that the patient contact the Endoscopy department to review questions regarding HBT. [facility] 36 ----- Message from Natalia Kuhn NP [...] we can do the MRE. Thank you. [facility] Orders Onlyon 2023 Orders Only [id number] Brian Sadler se 1950 Provider Department Center 2023 [id number]-KNZGVJSQAPRESTON KUHN*NISHA [facility] Family History Problem Relation Age of Onset Other Mother Coronary artery disease Mother Other Mother Other Mother Other Father Hypertension Father Hyperlipidemia Father Other Daughter Family Status - Relation Status Age at Mother Father Daughter [facility] 36on 02-17-2023 36 Instruction sheet fo r HBT and US order mailed to the patient. I scanned the stool study results into patients chart and sent them into Tierra's basket. [facility] 36 ----- Message from Natalia Kuhn NP sent at 02/16/2023 7:59 PM EST ----- Gabe sEteves, Do you mind helping mailing her a Hydrogen Breath Test instruction packet and Gall bladder US orders to her house. Do you mind also calling [facility] and requesting all her stool study results from dec or jan. They never faxed us any results. They are important so I can further help her. Thank you so much. I really appreciate your help with this. [facility] Orders Onlyon 02-17-2023 Orders Only [id number] Brian Sadler se 1950 F Date Provider Department Center 02/17/2023 [id number], HISTORICAL MP [facility] Family History Problem Relation Age of Onset Other Mother Coronary artery disease Mother Other Mother Other Mother Other Father Hypertension Father Hyperlipidemia Father Other Daughter Family Status - Relation Status Age at Mother Father Daughter [facility] Telemedicineon 02-16-2023 Telemedicine [id number] Brian Sadler se 1950 F Date Provider Department Center 02/16/2023 [id number] KUHN*MP [facility] Family History Problem Relation Age of Onset Other Mother Coronary artery disease Mother Other Mother Other Mother Other Father Hypertension Father Hyperlipidemia Father Other Daughter Family Status - Relation Status Age at Mother Father Daughter Level of Service:39850 IA OFFICE/OUTPATIENT ESTABLISHED HIGH MDM 40-54 MIN [facility] HISTOLOGY - TISSUE EXAMon LAB AP ASR [...] the Clinical Laboratory Improvement Amendments of 1998. [facility] Comment on above: Performed By: #### L [id number] ####[facility] (BEAKER)[address] [place] [address] LAB AP CASE REPORT Normal [facility] Comment on above: Result Comment: Surg ical Pathology Case: [id number] Authorizing Provider: Dario Alarcon MD Collected: 02/09/2023 1345 Ordering Location: [facility] [place] Received: 02/09/2023 1515 [facility] Endoscopy Pathologist: Jessica Pugh MD Specimens: A) - Small Intestine, Duodenum, r/o celiac B) - Gastric, r/o h pylori C) - Large Intestine, random colon biopsies microscopic colitis Performed By: #### L [id number] ####[facility] [facility] [place] [address] LAB AP CLINICAL INFORMATION Order Diagnoses Normal [facility] Comment on above: Result [...] esophagitis present [ICD-10-CM] Performed By: #### L [id number] ####[facility] ([facility])[address] [facility] [place] [address] LAB AP GROSS DESCRIPTION Normal [facility] Comment on above: Result Comment: A. S mall Intestine, Duodenum. The specimen is received in formalin labeled Vero Sadler, and r/o celiac . It consists of. 6 whitehead-pink irregular fragments of soft tissue measuring 0.6 x 0.4 x 0.2 cm in aggregate. The specimen is submitted in toto in 1 cassette. Vashti Marlow, [employer] Hel[employer] student Clement Brower, [employer]ologists' Mining Helper B. Gastric. The specimen is received in formalin labeled Vero Sadler, and r/o H. pylori . It consists of 3 whitehead-pink irregular fragments of soft tissue measuring 0.6 x 0.2 x 0.2 cm in aggregate. The specimen is submitted in toto in 1 cassette. Vashti Marlow, [employer]ologists[employer] Hel[employer] student Clement Brower, Pathologists' Mining Helper C. Large Intestine. The specimen is received in formalin labeled Vero Wick Sadler, and random colon biopsies microscopic colitis . It consists of 8 whitehead-pink irregular fragments of soft tissue measuring 0.9 x 0.6 x 0.2 cm in aggregate. The specimen is submitted in toto in 1 cassette. Vashti Marlow, Pathologists' [employer] Hel[employer] student Clement Brower, Pathologists' Mining Helper Performed By: #### L [id number] ####[facility] (BEAKER)[address] [facility] [place] [address] LAB AP MICROSCOPIC DESCRIPTION Microscopic examination performed. [facility] Comment on above: Performed By: #### L [id number] ####[facility] (BEAKER)[address] [facility] [place] [address] LAB AP REPORT FINAL DIAGNOSIS NARRATIVE [facility] Comment on above: Result Comment: [...] malignancy is seen. Performed By: #### L [id number] ####[facility] (BEAKER)[address] [facility] [place] [address] HPon 02-09-2023 HP ---- -------- Attestation signed [...] She had a prior colonoscopy at [facility], which was reportedly normal 3-4 years [...] She had a prior colonoscopy at [facility], which was reportedly normal 3-4 years ago. She has never had a prior EGD. PAST MEDICAL, SURGICAL, FAMILY, and SOCIAL HISTORY Past Medical History: Past Medical History: Diagnosis Date Abnormal ECG Adverse effect of anesthesia heartrate drops after colonoscopy Arthritis Chronic kidney disease COPD (chronic obstructive pulmonary disease) ([facility] Hypertension Myocardial infarction ([facility]) Obstructive sleep apnea 10/02/2022 SOBIA=17.7 events/hour; Pranav SaO2=76%; Rbsonz=583.0 lbs; BMI=52.7 kg/m2, Home Sleep Apnea Testing on 09/25/2022 at [facility] Past Surgical History: Past Surgical [...] taking: Reported on 01/28/2023 12/15/22 03/15/23 Tian Felton MD carvedilol (Coreg) 12.5 mg tablet Take [...] mouth in the morning. 12/15/22 12/15/23 Tian Felton MD lovastatin (Mevacor) 20 mg tablet Won (more content not included)... Normal [facility] POCT GLUCOSE METER UNSOLICIT ED RESULTSon 02-09-2023 Glucose [Mass/Vol] 86 mg/dL Normal 70-105 [facility] Comment on above: Order Comment: Waive d Testing in the ED is performed under the ED CLIA certificate #[id number]. Result Comment: acle ment Performed By: #### L [id number] #### [facility] (BEAKER) [address] [place] [address] Prep for Procedureon 023 Prep for Procedure [id number] Brian Sadler se 1950 F Date Provider Department Center 01/28/2023 [facility] GEORGEAvelina Family History Problem Relation Age of Onset Other Mother Coronary artery disease Mother Other Mother Other Mother Other Father Hypertension Father Hyperlipidemia Father Other Daughter Family Status - Relation Status Age at Mother Father Daughter Normal [facility] Physician Referralon 023 Physician Referral [id number]:1 27 Normal [facility] Physician Referralon 023 Physician Referral [id number]: 127 Normal [facility] CBC AUTO DIFFon 07-17-2022 BASO # 0.0 103/ul Normal 0.0-0.1 [facility] Comment on above: Performed By: #### C BC #### [facility] Laboratory [address] [address] [address] Eusebia Moralez Basophils/100 WBC (Bld) 0.6 % Normal 0.2-2.[address] [facility] Comment on above: Performed By: #### C BC #### [facility] Laboratory [address] [place] [address] Dr. Eusebia Moralez EO # 0.2 103/ul Normal 0.0-0.7 [facility] Comment on above: Performed By: #### C BC #### [facility] Laboratory [address] [place] [address] Dr. Eusebia Moralez Eosinophils/100 WBC (Bld) 2.2 % Normal 0.9-7.[address] [facility] Comment on above: Performed By: #### C BC #### [facility] Laboratory [address] [place] [address] Dr. Eusebia Moralez Erythrocyte distribution width (RBC) [Ratio] 13.0 % Normal 11.0-15.[address] [facility] Comment on above: Performed By: #### C BC #### [facility] Laboratory [address] [place] [address] Dr. Eusebia Moralez Hematocrit (Bld) [Volume fraction] 40.5 % Normal 36.0-48.[address] [facility] Comment on above: Performed By: #### C BC #### [facility] Laboratory [address] [place] [address] Dr. Eusebia Moralez Hemoglobin (Bld) [Mass/Vol] 12.7 g/dL Normal 12.0-16.[address] [facility] Comment on above: Performed By: #### C BC #### [facility] Laboratory [address] [place] [address] Dr. Eusebia Moralez IG # 0.02 10e3/ul Normal 0.00-0.03 [facility] Comment on above: Performed By: #### C BC #### [facility] Laboratory [address] [place] [address] Dr. Eusebia Moralez IG % 0.3 % Normal 0.0-0.5 [facility] Comment on above: Performed By: #### C BC #### [facility] Laboratory [address] [place] [address] Dr. Eusebia Moralez LYMPH # 1.4 103/ul Normal 1.2-3.8 [facility] Comment on above: Performed By: #### C BC #### [facility] Laboratory [address] [place] [address] Dr. Eusebia Moralez Lymphocytes/100 WBC (Bld) 19.9 % Critically low 20.5-60.0 [facility] Comment on above: Performed By: #### C BC #### [facility] Laboratory [address] [place] [address] Dr. Eusebia Moralez MANUAL DIFF REQ NO Normal [facility] Comment on above: Performed By: #### C BC #### [facility] Laboratory [address] [place] [address] Dr. Eusebia Moralez MCH (RBC) [Entitic mass] 29.1 pg Normal 26.7-34.[address] [facility] Comment on above: Performed By: #### C BC #### [facility] Laboratory [address] [place] [address] Dr. Eusebia Moralez MCHC (RBC) [Mass/Vol] 31.4 g/dL Normal 29.9-35.2 [facility] Comment on above: Performed By: #### C BC #### [facility] Laboratory [address] [place] [address] Dr. Eusebia Moralez MCV (RBC) [Entitic vol] 92.9 fL Normal 81.0-99.0 [facility] Comment on above: Performed By: #### C BC #### [facility] Laboratory [address] [place] [address] Dr. Eusebia Moralez MONO # 0.7 103/ul Normal 0.3-0.8 [facility] Comment on above: Performed By: #### C BC #### [facility] Laboratory [address] [place] [address] Dr. Eusebia Moralez Monocytes/100 WBC (Bld) 9.4 % Normal 1.7-12.0 [facility] Comment on above: Performed By: #### C BC #### [facility] Laboratory [address] [place] [address] Dr. Eusebia Moralez NEUT # 4.7 103/ul Normal 1.4-6.[address] [facility] Comment on above: Performed By: #### C BC #### [facility] Laboratory [address] [place] [address] Dr. Eusebia Moralez Neutrophils/100 WBC (Bld) 67.6 % Normal 43.0-75.[address] [facility] Comment on above: Performed By: #### C BC #### [facility] Laboratory [address] [place] [address] Dr. Eusebia Moralez Platelet mean volume (Bld) [Entitic vol] 9.9 fL Normal 9.5-13.5 [facility] Comment on above: Performed By: #### C BC #### [facility] Laboratory [address] [place] [address] Dr. Eusebia Moralez PLT 218 103/ul Normal 150-[address] [facility] Comment on above: Performed By: #### C BC #### [facility] Laboratory [address] [place] [address] Dr. Eusebia Moralez RBC 4.36 106/ul Normal 4.20-5.[address] [facility] Comment on above: Performed By: #### C BC #### [facility] Laboratory [address] [place] [address] Dr. Eusebia Moralez WBC 6.9 103/ul Normal 4.0-11.[address] [facility] Comment on above: Performed By: #### C BC #### [facility] Laboratory [address] [place] [address] Dr. Eusebia Moralez PROF CHEM 8 (BAS METB)on Anion gap [Moles/Vol] 9.0 mmol/L Normal [facility] Comment on above: Performed By: #### B MP #### [facility] Laboratory [address] [place] [address] Dr. Eusebia Moralez Calcium [Mass/Vol] 9.2 mg/dL Normal 8.5-10.1 [facility] Comment on above: Performed By: #### B MP #### [facility] Laboratory [address] [place] [address] Dr. Eusebia Moralez Chloride [Moles/Vol] 103 mmol/L Normal 98-[address] [facility] Comment on above: Performed By: #### B MP #### [facility] Laboratory [address] [address] [address] Eusebia Moralez CO2 [Moles/Vol] 32.9 mmol/L Critically high 21.0-32.[address] [facility] Comment on above: Performed By: #### B MP #### [facility] Laboratory [address] [address] [address] Eusebia Moralez Creatinine [Mass/Vol] 1.74 mg/dL Critically high 0.55-1.[address] [facility] Comment on above: Performed By: #### B MP #### [facility] Laboratory [address] [address] [address] Eusebia Moralez EGFR-AF MARTINIQUAIS 35 mL/min/1.73m2 Critically low >=[address] [facility] Comment on above: Performed By: #### B MP #### [facility] Laboratory [address] [address] [address] Eusebia Moralez EGFR-NON AF MARTINIQUAIS 29 mL/min/1.73m2 Critically low >=[address] [facility] Comment on above: Performed By: #### B MP #### [facility] Laboratory [address] [address] [address] Eusebia Moralez Glucose [Mass/Vol] 101 mg/dL Normal 74-106 [facility] Comment on above: Performed By: #### B MP #### [facility] Laboratory [address] [address] [address] Eusebia Moralez Potassium [Moles/Vol] 3.9 mmol/L Normal 3.5-5.[address] [facility] Comment on above: Performed By: #### B MP #### [facility] Laboratory [address] [address] [address] Eusebia Moralez Sodium [Moles/Vol] 141 mmol/L Normal 136-145 [facility] Comment on above: Performed By: #### B MP #### [facility] Laboratory [address] [address] [address] Eusebia Moralez Urea nitrogen [Mass/Vol] 34.0 mg/dL Critically high 7.0-18.[address] [facility] Comment on above: Performed By: #### B MP #### [facility] Laboratory [address] [place] [address] Dr. Eusebia Moralez Urea nitrogen/Creatinin e [Mass ratio] 19.5 mg/mg Normal [facility] Comment on above: Performed By: #### B MP #### [facility] Laboratory [address] [address] [address] Eusebia Moralez CBC AUTO DIFFon 07-02-2022 BASO # 0.1 103/ul Normal 0.0-0.[address] [facility] Comment on above: Performed By: #### C BC ####[facility] [address] [address]Dr. Eusebia Moralez Basophils/100 WBC (Bld) 0.7 % Normal 0.2-2.[address] [facility] Comment on above: Performed By: #### C BC ####[facility] [address] [place], [place] [address]Dr. Eusebia Moralez EO # 0.1 103/ul Normal 0.0-0.[address] [facility] Comment on above: Performed By: #### C BC ####[facility] [address] [place], [place] [address]Dr. Eusebia Moralez Eosinophils/100 WBC (Bld) 1.8 % Normal 0.9-7.[address] [facility] Comment on above: Performed By: #### C BC ####[facility] [address] [address]DrRadha Moralez Erythrocyte distribution width (RBC) [Ratio] 13.1 % Normal 11.0-15.0 [facility] Comment on above: Performed By: #### C BC ####[facility] [address] [place], [place] [address]DrRadha Moralez Hematocrit (Bld) [Volume fraction] 40.2 % Normal 36.0-48.[address] [facility] Comment on above: Performed By: #### C BC ####[facility] [address] [place], [place] [address]Dr. Eusebia Moralez Hemoglobin (Bld) [Mass/Vol] 12.5 g/dL Normal 12.0-16.0 [facility] Comment on above: Performed By: #### C BC ####[facility] [address] [address]Dr. Eusebia Moralez IG # 0.01 10e3/ul Normal 0.00-0.03 [facility] Comment on above: Performed By: #### C BC ####[facility] [address] [place], [place] [address]Dr. Eusebia Moralez IG % 0.1 % Normal 0.0-0.5 [facility] Comment on above: Performed By: #### C BC ####[facility] [address] [place], [place] [address]DrRadha Moralez LYMPH # 1.5 103/ul Normal 1.2-3.8 [facility] Comment on above: Performed By: #### C BC ####[facility] [address] [place], [place] [address]Dr. Eusebia Moralez Lymphocytes/100 WBC (Bld) 22.6 % Normal 20.5-60.0 [facility] Comment on above: Performed By: #### C BC ####[facility] [address] [place], [place] [address]DrRadha Moralez MANUAL DIFF REQ NO Normal [facility] Comment on above: Performed By: #### C BC ####[facility] [address] [place], [place] [address]DrRadha Moralez MCH (RBC) [Entitic mass] 29.3 pg Normal 26.7-34.0 [facility] Comment on above: Performed By: #### C BC ####[facility] [address] [place], [place] [address]Dr. Eusebia Moralez MCHC (RBC) [Mass/Vol] 31.1 g/dL Normal 29.9-35.2 [facility] Comment on above: Performed By: #### C BC ####[facility] [address] [place], [place] [address]Dr. Eusebia Moralez MCV (RBC) [Entitic vol] 94.4 fL Normal 81.0-99.0 [facility] Comment on above: Performed By: #### C BC ####[facility] [address] [address]DrRadha Eusebia Moralez MONO # 0.6 103/ul Normal 0.3-0.8 [facility] Comment on above: Performed By: #### C BC ####[facility] [address] [place], [place] [address]DrRadha Eusebia Moralez Monocytes/100 WBC (Bld) 9.1 % Normal 1.7-12.0 [facility] Comment on above: Performed By: #### C BC ####[facility] [address] [place], [place] [address]DrRadha Eusebia Moralez NEUT # 4.4 103/ul Normal 1.4-6.5 [facility] Comment on above: Performed By: #### C BC ####[facility] [address] [place], [place] [address]DrRadha Eusebia Moralez Neutrophils/100 WBC (Bld) 65.7 % Normal 43.0-75.0 [facility] Comment on above: Performed By: #### C BC ####[facility] [address] [place], [place] [address]DrRadha Eusebia Moralez Platelet mean volume (Bld) [Entitic vol] 9.6 fL Normal 9.5-13.5 [facility] Comment on above: Performed By: #### C BC ####[facility] [address] [place], [place] [address]DrRadha Eusebia Kirt PLT 204 103/ul Normal 150-450 [facility] Comment on above: Performed By: #### C BC ####[facility] [address] [place], [place] [address]DrRadha Lisadenise Moralez RBC 4.26 106/ul Normal 4.20-5.40 [facility] Comment on above: Performed By: #### C BC ####[facility] [address] [place], [place] [address]DrRadha Moralez WBC 6.7 103/ul Normal 4.0-11.[address] [facility] Comment on above: Performed By: #### C BC ####[facility] [address] [address]Dr. Eusebia Moralez PROF CHEM 8 (BAS METB)on Anion gap [Moles/Vol] 11.2 mmol/L Normal [facility] Comment on above: Performed By: #### B MP ####[facility] [address] [place], [place] [address]Dr. Eusebia Moralez Calcium [Mass/Vol] 9.2 mg/dL Normal 8.5-10.1 [facility] Comment on above: Performed By: #### B MP ####[facility] [address] [place], [place] [address]Dr. Eusebia Moralez Chloride [Moles/Vol] 109 mmol/L Critically high 98-[address] [facility] Comment on above: Performed By: #### B MP ####[facility] [address] [place], [place] [address]Dr. Eusebia Moralez CO2 [Moles/Vol] 27.6 mmol/L Normal 21.0-32.0 [facility] Comment on above: Performed By: #### B MP ####[facility] [address] [place], [place] [address]Dr. Eusebia Moralez Creatinine [Mass/Vol] 1.49 mg/dL Critically high 0.55-1.[address] [facility] Comment on above: Performed By: #### B MP ####[facility] [address] [place], [place] [address]Dr. Eusebia Moralez EGFR-AF MARTINIQUAIS 42 mL/min/1.73m2 Critically low >=60 [facility] Comment on above: Performed By: #### B MP ####[facility] [address] [place], [place] [address]Dr. Eusebia Moralez EGFR-NON AF MARTINIQUAIS 34 mL/min/1.73m2 Critically low >=60 [facility] Comment on above: Performed By: #### B MP ####[facility] [address] [place], [place] [address]Dr. Eusebia Moralez Glucose [Mass/Vol] 89 mg/dL Normal 74-106 [facility] Comment on above: Performed By: #### B MP ####[facility] [address] [address]Dr. Eusebia Moralez Potassium [Moles/Vol] 4.8 mmol/L Normal 3.5-5.1 [facility] [facility] Comment on above: Performed By: #### B MP ####[facility] [address] [address]Dr. Eusebia Moralez Sodium [Moles/Vol] 143 mmol/L Normal 136-145 [facility] Comment on above: Performed By: #### B MP ####[facility] [address] [address]Dr. Eusebia Moralez Urea nitrogen [Mass/Vol] 27.0 mg/dL Critically high 7.0-18.[address] [facility] Comment on above: Performed By: #### B MP ####[facility] [address] [address]Dr. Eusebia Moralez Urea nitrogen/Creatinin e [Mass ratio] 18.1 mg/mg Normal [facility] Comment on above: Performed By: #### B MP ####[facility] [address] [address]Dr. Eusebia Moralez CT LUNG CANCER SCREENINGon 1 [...] right upper lobe. Electronically authenticated by: AMBAR MOON Date: 2022-02-24 08:15 Normal [facility] PROF CHEM 8 (BAS METB)on Anion gap [Moles/Vol] 9.7 mmol/L Normal [facility] Comment on above: Performed By: #### B MP #### [facility] Laboratory [address] [place] [address] Dr. Eusebia Moralez Calcium [Mass/Vol] 8.8 mg/dL Normal 8.5-10.1 [facility] Comment on above: Performed By: #### B MP #### [facility] Laboratory [address] [address] [address] Eusebia Moralez Chloride [Moles/Vol] 107 mmol/L Normal 98-[address] [facility] Comment on above: Performed By: #### B MP #### [facility] Laboratory [address] [place] [address] Dr. Eusebia Moralez CO2 [Moles/Vol] 29.5 mmol/L Normal 21.0-32.0 [facility] Comment on above: Performed By: #### B MP #### [facility] Laboratory [address] [address] [address] Eusebia Moralez Creatinine [Mass/Vol] 1.83 mg/dL Critically high 0.55-1.[address] [facility] Comment on above: Performed By: #### B MP #### [facility] Laboratory [address] [address] [address] Eusebia Moralez EGFR-AF MARTINIQUAIS 33 mL/min/1.73m2 Critically low >=[address] [facility] Comment on above: Performed By: #### B MP #### [facility] Laboratory [address] [address] [address] Eusebia Moralez EGFR-NON AF MARTINIQUAIS 27 mL/min/1.73m2 Critically low >=[address] [facility] Comment on above: Performed By: #### B MP #### [facility] Laboratory [address] [address] [address] Eusebia Moralez Glucose [Mass/Vol] 87 mg/dL Normal 74-106 [facility] Comment on above: Performed By: #### B MP #### [facility] Laboratory [address] [address] [address] Eusebia Moralez Potassium [Moles/Vol] 5.2 mmol/L Critically high 3.5-5.[address] [facility] Comment on above: Performed By: #### B MP #### [facility] Laboratory [address] [address] [address] Eusebia Moralez Sodium [Moles/Vol] 141 mmol/L Normal 136-145 [facility] Comment on above: Performed By: #### B MP #### [facility] Laboratory [address] [address] [address] Eusebia Moralez Urea nitrogen [Mass/Vol] 37.0 mg/dL Critically high 7.0-18.[address] [facility] Comment on above: Performed By: #### B MP #### [facility] Laboratory [address] [address] [address] Eusebia Moralez Urea nitrogen/Creatinin e [Mass ratio] 20.2 mg/mg Normal [facility] Comment on above: Performed By: #### B MP #### [facility] Laboratory [address] [address] [address] Eusebia Moralez NM STRESS/REST MULTIon 01-23 NM STRESS/REST MULTI Patient: VERO SADLER Exam Date: 01/23/2022 : 1950 Gender:F Ordering : DR DEBBIE ARVIZU . Admission #: [id number] Family : Order #: [id number] CLICK HERE TO VIEW EXAM RADIOLOGY REPORT [...] 4. Normal exercise test Dictated by: Raji Harrison MD on 01/26/2022 at 13:43 Approved by: Raji Harrison MD on 01/26/2022 at 13:[address] [facility] ECHOCARDIO M/2D COMPLETEon 1 03-23-2021 ECHOCARDIO M/2D COMPLETE Patient: VERO SADLER Exam Date: 01/21/2022 : 1950 Gender:F Ordering : DR DEBBIE ARVIZU . Admission #: [id number] Family : Order #: [id number] CLICK HERE TO VIEW EXAM ECHOCARDIOGRAM REPORT [...] on 01/21/2022 at 09:[address] [facility] XR DEXA BONE DENSITYon 01-21 XR [...] High fracture risk Electronically authenticated by: RAJI HARRISON Date: 2022-01-21 10:[address] [facility] BNPon 01-14-2022 Natriuretic peptide B (Bld) [Mass/Vol] 834.0 pg/mL Normal <=900.0 [facility] Comment on above: Performed By: #### T SH, BNP, CMP, T7, LIPID ####[facility] [address] [place], [place] [address]WuDr. Eusebia Moralez CBC AUTO DIFFon 01-14-2022 BASO # 0.0 103/ul Normal 0.0-0.[address] [facility] Comment on above: Performed By: #### C BC #### [facility] Laboratory [address] [place], [place] [address] Dr. Eusebia Moralez Basophils/100 WBC (Bld) 0.4 % Normal 0.2-2.[address] [facility] Comment on above: Performed By: #### C BC #### [facility] Laboratory [address] [place] [address] Dr. Eusebia Moralez EO # 0.1 103/ul Normal 0.0-0.7 [facility] Comment on above: Performed By: #### C BC #### [facility] Laboratory [address] [place] [address] Dr. Eusebia Moralez Eosinophils/100 WBC (Bld) 1.1 % Normal 0.9-7.0 [facility] Comment on above: Performed By: #### C BC #### [facility] Laboratory [address] [place] [address] Dr. Eusebia Moralez Erythrocyte distribution width (RBC) [Ratio] 15.0 % Normal 11.0-15.[address] [facility] Comment on above: Performed By: #### C BC #### [facility] Laboratory [address] [place] [address] Dr. Eusebia Moralez Hematocrit (Bld) [Volume fraction] 39.6 % Normal 36.0-48.[address] [facility] Comment on above: Performed By: #### C BC #### [facility] Laboratory [address] [place] [address] Dr. Eusebia Moralez Hemoglobin (Bld) [Mass/Vol] 12.4 g/dL Normal 12.0-16.[address] [facility] Comment on above: Performed By: #### C BC #### [facility] Laboratory [address] [place] [address] Dr. Eusebia Moralez IG # 0.02 10e3/ul Normal 0.00-0.03 [facility] Comment on above: Performed By: #### C BC #### [facility] Laboratory [address] [place] [address] Dr. Eusebia Moralez IG % 0.3 % Normal 0.0-0.5 [facility] Comment on above: Performed By: #### C BC #### [facility] Laboratory [address] [place] [address] Dr. Eusebia Moralez LYMPH # 1.3 103/ul Normal 1.2-3.8 [facility] Comment on above: Performed By: #### C BC #### [facility] Laboratory [address] [address] [address] Eusebia Moralez Lymphocytes/100 WBC (Bld) 17.9 % Critically low 20.5-60.[address] [facility] Comment on above: Performed By: #### C BC #### [facility] Laboratory [address] [place] [address] Dr. Eusebia Moralez MANUAL DIFF REQ NO Normal [facility] Comment on above: Performed By: #### C BC #### [facility] Laboratory [address] [place] [address] Dr. Eusebia Moralez MCH (RBC) [Entitic mass] 29.8 pg Normal 26.7-34.0 [facility] Comment on above: Performed By: #### C BC #### [facility] Laboratory [address] [place] [address] Dr. Eusebia Moralez MCHC (RBC) [Mass/Vol] 31.3 g/dL Normal 29.9-35.2 [facility] Comment on above: Performed By: #### C BC #### [facility] Laboratory [address] [place] [address] Dr. Eusebia Moralez MCV (RBC) [Entitic vol] 95.2 fL Normal 81.0-99.[address] [facility] Comment on above: Performed By: #### C BC #### [facility] Laboratory [address] [place] [address] Dr. Eusebia Moralez MONO # 0.5 103/ul Normal 0.3-0.8 [facility] Comment on above: Performed By: #### C BC #### [facility] Laboratory [address] [place] [address] Dr. Eusebia Moralez Monocytes/100 WBC (Bld) 7.0 % Normal 1.7-12.0 [facility] Comment on above: Performed By: #### C BC #### [facility] Laboratory [address] [place] [address] Dr. Eusebia Moralez NEUT # 5.2 103/ul Normal 1.4-6.5 [facility] Comment on above: Performed By: #### C BC #### [facility] Laboratory [address] [address] [address] Eusebia Moralez Neutrophils/100 WBC (Bld) 73.3 % Normal 43.0-75.0 [facility] Comment on above: Performed By: #### C BC #### [facility] Laboratory [address] [address] [address] Eusebia Moralez Platelet mean volume (Bld) [Entitic vol] 9.5 fL Normal 9.5-13.5 [facility] Comment on above: Performed By: #### C BC #### [facility] Laboratory [address] [address] [address] Eusebia Moralez PLT 188 103/ul Normal 150-450 [facility] Comment on above: Performed By: #### C BC #### [facility] Laboratory [address] [address] [address] Eusebia Moralez RBC 4.16 106/ul Critically low 4.20-5.40 [facility] Comment on above: Performed By: #### C BC #### [facility] Laboratory [address] [address] [address] Eusebia Moralez WBC 7.0 103/ul Normal 4.0-11.0 [facility] Comment on above: Performed By: #### C BC #### [facility] Laboratory [address] [address] [address] Eusebia Moralez FREE THYROXINE INDEX T7on FTI 2.45 Normal 1.30-4.50 [facility] Comment on above: Performed By: #### T SH, BNP, CMP, T7, LIPID ####[facility] [address] [address]Dr. Eusebia Moralez T3U 35.0 % Normal 30.0-39.0 [facility] Comment on above: Performed By: #### T SH, BNP, CMP, T7, LIPID ####[facility] [address] [id number]. Eusebia Moralez T4 [Mass/Vol] 7.00 ug/dL Normal 4.80-13.90 [facility] Comment on above: Performed By: #### T SH, BNP, CMP, T7, LIPID ####[facility] [address] [place], [place] [address]FiRadha Moralez IRONon 01-14-2022 Iron [Mass/Vol] 58.0 ug/dL Normal 50.0-170.0 [facility] Comment on above: Performed By: #### I MONIE #### [facility] Laboratory [address] [place], [place] [address] Dr. Eusebia Moralez LIPID PROFILEon 01-14-2022 CHOL-HDL RATIO NORM SEE BELOW Normal [facility] Comment on above: Result Comment: 3.3 - 4.4 LOW RISK 4.4 - 7.1 AVERAGE RISK 7.1 - 11.0 MODERATE RISK >11.0 HIGH RISK Performed By: #### T SH, BNP, CMP, T7, LIPID ####[facility] [address] [place], [place] [address]Oe. Eusebia Moralez Cholesterol [Mass/Vol] 186 mg/dL Normal <=200 [facility] Comment on above: Performed By: #### T SH, BNP, CMP, T7, LIPID ####[facility] [address] [place], [place] [address]Qd. Eusebia Moralez Cholesterol in HDL [Mass/Vol] 45 mg/dL Normal 40-60 [facility] Comment on above: Performed By: #### T SH, BNP, CMP, T7, LIPID ####[facility] [address] [place], [place] [address]Qf. Eusebia Moralez Cholesterol in LDL [Mass/Vol] 118.4 mg/dL Normal [facility] Comment on above: Performed By: #### T SH, BNP, CMP, T7, LIPID ####[facility] [address] [place], [place] [address]Te. Eusebia Moralez Cholesterol.total/ Cholesterol in HDL [Mass ratio] 4.1 {ratio} Normal [facility] Comment on above: Performed By: #### T SH, BNP, CMP, T7, LIPID ####[facility] [address] [place], [place] [address]Uk. Eusebia Moralez HDL NORMAL > or = 60 mg/dl - LO W CARDIOVASCULAR RISK <40 mg/dl - HIGH CARDIOVASCULAR RISK Normal [facility] Comment on above: Performed By: #### T SH, BNP, CMP, T7, LIPID ####[facility] [address] [address]Dr. Eusebia Moralez LDL CALC NORMAL SEE BELOW Normal [facility] Comment on above: Result Comment: <100 mg/dl OPTIMAL 100 - 129 mg/dl NEAR OR ABOVE OPTIMAL 130 - 159 mg/dl BORDERLINE HIGH 160 - 189 mg/dl HIGH >190 mg/dl VERY HIGH Performed By: #### T SH, BNP, CMP, T7, LIPID ####[facility] [address] [place] [id number]. Eusebia Moralez Triglyceride [Mass/Vol] 113 mg/dL Normal <=[address] [facility] Comment on above: Performed By: #### T SH, BNP, CMP, T7, LIPID ####[facility] [address] [address]Dr. Eusebia Moralez VLDL CALC 22.6 mg/dL Normal [facility] Comment on above: Performed By: #### T SH, BNP, CMP, T7, LIPID ####[facility] [address] [address]DrRadha Moralez PROF 14(COMP METB)on 022 Albumin [Mass/Vol] 3.3 g/dL Critically low 3.4-5.0 Th e [facility] Comment on above: Performed By: #### T SH, BNP, CMP, T7, LIPID #### [facility] Laboratory [address] [place] [address] Dr. Eusebia Moralez Albumin/Globulin [Mass ratio] 0.9 {ratio} Normal [facility] Comment on above: Performed By: #### T SH, BNP, CMP, T7, LIPID #### [facility] Laboratory [address] [address] [address] Eusebia Moralez ALP [Catalytic activity/Vol] 81 U/L Normal 46-[address] [facility] Comment on above: Performed By: #### T SH, BNP, CMP, T7, LIPID #### [facility] Laboratory [address] [address] [address] Eusebia Moralez ALT [Catalytic activity/Vol] 19 U/L Normal 14-[address] [facility] Comment on above: Performed By: #### T SH, BNP, CMP, T7, LIPID #### [facility] Laboratory [address] [address] [address] Eusebia Moralez Anion gap [Moles/Vol] 12.3 mmol/L Normal [facility] Comment on above: Performed By: #### T SH, BNP, CMP, T7, LIPID #### [facility] Laboratory [address] [address] [address] Eusebia Moralez AST [Catalytic activity/Vol] 12 U/L Critically low 15-[address] [facility] Comment on above: Performed By: #### T SH, BNP, CMP, T7, LIPID #### [facility] Laboratory [address] [place] [address] Dr. Eusebia Moralez Bilirubin [Mass/Vol] 0.4 mg/dL Normal 0.2-1.[address] [facility] Comment on above: Performed By: #### T SH, BNP, CMP, T7, LIPID #### [facility] Laboratory [address] [place] [address] Dr. Eusebia Moralez Calcium [Mass/Vol] 8.9 mg/dL Normal 8.5-10.1 [facility] Comment on above: Performed By: #### T SH, BNP, CMP, T7, LIPID #### [facility] Laboratory [address] [place] [address] Dr. Eusebia Moralez Chloride [Moles/Vol] 106 mmol/L Normal 98-107 [facility] Comment on above: Performed By: #### T SH, BNP, CMP, T7, LIPID #### [facility] Laboratory [address] [place] [address] Dr. Eusebia Moralez CO2 [Moles/Vol] 27.4 mmol/L Normal 21.0-32.0 [facility] Comment on above: Performed By: #### T SH, BNP, CMP, T7, LIPID #### [facility] Laboratory [address] [place] [address] Dr. Eusebia Moralez Creatinine [Mass/Vol] 1.51 mg/dL Critically high 0.55-1.[address] [facility] Comment on above: Performed By: #### T SH, BNP, CMP, T7, LIPID #### [facility] Laboratory [address] [address] [address] Eusebia Moralez EGFR-AF MARTINIQUAIS 41 mL/min/1.73m2 Critically low >=[address] [facility] Comment on above: Performed By: #### T SH, BNP, CMP, T7, LIPID #### [facility] Laboratory [address] [place] [address] Dr. Eusebia Moralez EGFR-NON AF MARTINIQUAIS 34 mL/min/1.73m2 Critically low >=[address] [facility] Comment on above: Performed By: #### T SH, BNP, CMP, T7, LIPID #### [facility] Laboratory [address] [place] [address] Dr. Eusebia Moralez Globulin (S) [Mass/Vol] 3.5 g/dL Normal [facility] Comment on above: Performed By: #### T SH, BNP, CMP, T7, LIPID #### [facility] Laboratory [address] [place] [address] Dr. Eusebia Moralez Glucose [Mass/Vol] 129 mg/dL Critically high 74-106 [facility] Comment on above: Performed By: #### T SH, BNP, CMP, T7, LIPID #### [facility] Laboratory [address] [place] [address] Dr. Eusebia Moralez Potassium [Moles/Vol] 4.7 mmol/L Normal 3.5-5.[address] [facility] Comment on above: Performed By: #### T SH, BNP, CMP, T7, LIPID #### [facility] Laboratory [address] [place] [address] Dr. Eusebia Moralez Protein [Mass/Vol] 6.8 g/dL Normal 6.4-8.2 [facility] Comment on above: Performed By: #### T SH, BNP, CMP, T7, LIPID #### [facility] Laboratory [address] [place] [address] Dr. Eusebia Moralez Sodium [Moles/Vol] 141 mmol/L Normal 136-145 [facility] Comment on above: Performed By: #### T SH, BNP, CMP, T7, LIPID #### [facility] Laboratory [address] [place], [place] [address] Dr. Eusebia Moralez Urea nitrogen [Mass/Vol] 37.0 mg/dL Critically high 7.0-18.[address] [facility] Comment on above: Performed By: #### T SH, BNP, CMP, T7, LIPID #### [facility] Laboratory [address] [place], [place] [address] Dr. Eusebia Moralez Urea nitrogen/Creatinin e [Mass ratio] 24.5 mg/mg Normal [facility] Comment on above: Performed By: #### T SH, BNP, CMP, T7, LIPID #### [facility] Laboratory [address] [id number] Eusebia Moralez TSHon 01-14-2022 TSH 0.068 uIU/mL Critically low 0.358-3.740 [facility] Comment on above: Performed By: #### T SH, BNP, CMP, T7, LIPID ####[facility] [address] [place], [place] [address]WhDr. Eusebia Moralez Covid-19 PCR (CVDTBH)on 10-13 SARS-CoV-2 (COVID-19) RNA DEREK+probe Ql (Unsp spec) Not detected Normal NOT DETECTED [facility] Comment on above: Result Comment: This test is not yet approved or cleared by the [place] FDA. When there are no FDA-approved or cleared tests available, and other criteria are met, FDA can make tests available under an emergency access mechanism called an Emergency Use Authorization (EUA). The EUA for this test is supported by the [employer] Installer of Health and Human Service's (HHS's) declaration [...] consistent with SARS-CoV-2. Performed By: #### [facility] ####[facility] [address] [place], [place] [address]TvRadha Moralez MRI LSPINE WO CONon 10-11-19 MRI [...] and foramen narrowing. Electronically authenticated by: AMBAR MOON Date: 2021-10-10 07:29 Normal [facility] Pulmonary Progress Noteo n 09-13-2020 [facility] Pulmonary Progress Note [facility] Pt Name: VERO SADLER [address] [place] [address] MR#: [id number] [place] [address] ACCT: [id number] PROGRESS NOTE- Pulmonary : [facility] Date of Service: 09/13/20 Text NAME: VERO SADLER MR#: [id number] DATE OF SERVICE: 09/13/2020 OUTPATIENT PULMONARY PROGRESS [...] disease, severity unknown. We will try to [facility] Pt Name: VERO SADLER [address] [place] [address] MR#: [id number] [place] [address] ACCT: [id number] PROGRESS NOTE- Pulmonary : [facility] [...] postoperative management if needed. TIM TOSCANO MD DI/MODL/[id number]/[id number] CC: Dr. Rito Guerrero MD eSign Date and Time Tim Toscano MD Signature on File 09/26/20 1046 Normal [facility] GLYCO HEMOon 08-23-2020 HbA1c (Bld) [Mass fraction] 5.3 % Normal [facility] Comment on above: Result Comment: Milagro vdial Diagnosis HbA1c (%) --------- Diabetic > 6.4 Prediabetes 5.7-6.4 Normal < 5.7 Performed By: #### L 500.98767 #### Test performed at: [address] [address] CBC W/DIFFon 08-22-2020 BASO ABS 0.0 K/uL Normal 0.0-0.2 [facility] Comment on above: Performed By: #### L 200.14098 #### Test performed at: [address] [address] Basophils/100 WBC (Bld) 0.5 % Normal [facility] Comment on above: Performed By: #### L 200.03250 #### Test performed at: [address] [address] EOS ABS 0.1 K/uL Normal 0.0-0.5 [facility] Comment on above: Performed By: #### L 200.95498 #### Test performed at: [address] [address] Eosinophils/100 WBC (Bld) 1.2 % Normal [facility] Comment on above: Performed By: #### L 200.19310 #### Test performed at: [address] [address] Erythrocyte distribution width (RBC) [Ratio] 12.8 % Normal 11.5-14.5 [facility] Comment on above: Performed By: #### L 200.98758 #### Test performed at: [address] [address] Hematocrit (Bld) [Volume fraction] 40.1 % Normal 36.0-48.0 [facility] Comment on above: Performed By: #### L 200.84720 #### Test performed at: [address] [address] Hemoglobin (Bld) [Mass/Vol] 12.4 g/dL Normal 12.0-15.0 [facility] Comment on above: Performed By: #### L 200.81480 #### Test performed at: [address] [address] IG % 0.3 % Normal [facility] Comment on above: Performed By: #### L 200.64674 #### Test performed at: [address] [address] IG ABS 0.02 K/uL Normal 0-0.05 [facility] Comment on above: Performed By: #### L 200.99390 #### Test performed at: [address] [address] Lymphocytes (Bld) [#/Vol] 1.3 10*3/uL Normal 1.2-3.5 [facility] Comment on above: Performed By: #### L 200.75661 #### Test performed at: [address] [address] Lymphocytes/100 WBC (Bld) 16.9 % Normal [facility] Comment on above: Performed By: #### L 200.70488 #### Test performed at: [address] [address] MCH (RBC) [Entitic mass] 29.0 pg Normal 25.4-34.6 [facility] Comment on above: Performed By: #### L 200.05216 #### Test performed at: [address] [address] MCHC (RBC) [Mass/Vol] 30.9 g/dL Low 31.5-36.5 [facility] Comment on above: Performed By: #### L 200.55246 #### Test performed at: [address] [address] MCV (RBC) [Entitic vol] 93.7 fL Normal 79.0-98.0 [facility] Comment on above: Performed By: #### L 200.75644 #### Test performed at: [address] [address] MONO ABS 0.8 K/uL Normal 0.0-1.0 [facility] Comment on above: Performed By: #### L 200.57577 #### Test performed at: [address] [address] Monocytes/100 WBC (Bld) 9.7 % Normal [facility] Comment on above: Performed By: #### L 200.42540 #### Test performed at: [address] [address] NEUTROPHIL ABS 5.5 K/uL Normal 1.4-6.6 [facility] Comment on above: Performed By: #### L 200.06232 #### Test performed at: [address] [address] Neutrophils/100 WBC (Bld) 71.4 % Normal [facility] Comment on above: Performed By: #### L 200.28319 #### Test performed at: [address] [address] NRBC # 0.000 K/uL Normal 0-0.012 [facility] Comment on above: Performed By: #### L 200.14079 #### Test performed at: [address] [address] NRBC % 0.0 /100 WBC Normal 0-0.2 [facility] Comment on above: Performed By: #### L 200.95852 #### Test performed at: [address] [address] Platelet mean volume (Bld) [Entitic vol] 10.1 fL Normal 8.7-12.4 [facility] Comment on above: Performed By: #### L 200.01051 #### Test performed at: [address] [address] Platelets (Bld) [#/Vol] 236 10*3/uL Normal 140-440 [facility] Comment on above: Performed By: #### L 200.55746 #### Test performed at: [address] [address] RBC (Bld) [#/Vol] 4.28 10*6/uL Normal 3.5-5.5 [facility] Comment on above: Performed By: #### L 200.38662 #### Test performed at: [address] [address] WBC (Bld) [#/Vol] 7.7 10*3/uL Normal 3.9-11.0 [facility] Comment on above: Performed By: #### L 200.64502 #### Test performed at: [address] [address] CHEST PA/AP & LATERAL OR 2 V WSon 08-22-2020 CHEST PA/AP & LATERAL OR 2 VWS STUDY: CHEST PA/AP LATERAL OR 2 VWS; 08/22/2020 2:35 pm INDICATION: COPD. COMPARISON: None. ACCESSION NUMBER(S): [id number] ORDERING CLINICIAN: Ovidio Baez FINDINGS: The lungs are clear without pleural effusion. Borderline cardiomegaly. Otherwise unremarkable mediastinum, eron, and pulmonary vasculature. Thoracic degenerative changes are present. IMPRESSION: No active disease in the chest. Normal [facility] COMP META PANELon 08-22-2020 Albumin [Mass/Vol] 3.4 g/dL Normal 3.4-5.0 [facility] Comment on above: Performed By: #### L 500.71830, L500.75744, L500.00420 #### Test performed at: [address] [address] ALK PHOS TOTAL 88 U/L Normal 45-117 [facility] Comment on above: Performed By: #### L 500.36688, L500.63672, L500.72011 #### Test performed at: [address] [address] ALT [Catalytic activity/Vol] 17 U/L Normal 13-61 [facility] Comment on above: Performed By: #### L 500.73999, L500.87786, L500.06526 #### Test performed at: [address] [address] AST [Catalytic activity/Vol] 12 U/L Low 15-37 [facility] Comment on above: Performed By: #### L 500.87117, L500.03856, L500.42703 #### Test performed at: [address] [address] BILI TOTAL 0.5 mg/dL Normal 0.2-1.0 [facility] Comment on above: Performed By: #### L 500.69736, L500.01125, L500.80187 #### Test performed at: [address] [address] Calcium [Mass/Vol] 9.0 mg/dL Normal 8.5-10.1 [facility] Comment on above: Performed By: #### L 500.97026, L500.33003, L500.13165 #### Test performed at: [address] [address] Chloride [Moles/Vol] 107 mmol/L Normal 98-107 [facility] Comment on above: Performed By: #### L 500.87071, L500.36662, L500.00778 #### Test performed at: [address] [address] CO2 [Moles/Vol] 29 mmol/L Normal 21-32 [facility] Comment on above: Performed By: #### L 500.49250, L500.50865, L500.08919 #### Test performed at: [address] [address] Creatinine [Mass/Vol] 1.280 mg/dL High 0.550-1.020 [facility] Comment on above: Performed By: #### L 500.29476, L500.23829, L500.14901 #### Test performed at: [address] [address] Glucose [Mass/Vol] 90 mg/dL Normal 70-99 [facility] Comment on above: Result Comment: Fast ing GLUCOSE reference range has been updated per (ADA) [place] [employer]'s recommendation. 06/07/2018 Performed By: #### L 500.91590, L500.04263, L500.77130 #### Test performed at: [address] [address] Potassium [Moles/Vol] 4.4 mmol/L Normal 3.5-5.1 [facility] Comment on above: Performed By: #### L 500.07415, L500.80271, L500.88119 #### Test performed at: [address] [address] Protein [Mass/Vol] 6.8 g/dL Normal 6.4-8.2 [facility] Comment on above: Performed By: #### L 500.48893, L500.80806, L500.40381 #### Test performed at: [address] [address] Sodium [Moles/Vol] 142 mmol/L Normal 136-145 [facility] Comment on above: Performed By: #### L 500.25140, L500.35021, L500.50279 #### Test performed at: [address] [address] Urea nitrogen [Mass/Vol] 21 mg/dL High 7-18 [facility] Comment on above: Performed By: #### L 500.75476, L500.71343, L500.86858 #### Test performed at: [address] [address] GFR ESTIMATEon 08-22-2020 IF AMER 50 Low > 60 [facility] Comment on above: Result Comment: eGFR (Estimated GFR) Units of measure:mL/min/1.73 meters sq. *CALCULATION REVISED 01/01/2015;IDMS-traceable MDRD equation eGFR is derived from the reexpressed MDRD Study equation using the following parameters: serum creatinine, age, gender and race. An eGFR<60 mL/min/1.73m2 for >3 months is consistent with chronic kidney disease. Refer to KDOQI guidelines for clinical interpretation. Performed By: #### L 500.82670, L500.66674, L500.68586 #### Test performed at: [place] [address] IF non-AFR AMER 41 Low > 60 [facility] Comment on above: Performed By: #### L 500.56024, L500.32976, L500.24397 #### Test performed at: [place] [address] TSH ULTRA SENSon 08-22-2020 TSH ULTRA SENS < 0.005 Low 0.358-3.74 [facility] Comment on above: Performed By: #### L 500.23971, L500.50953, L500.21023 #### Test performed at: [place] [address] LUMB SP COMP W FLEX/EXT 6 VW Son 07-23-2020 LUMB SP COMP W FLEX/EXT 6 VWS STUDY: LUMB SP COMP W FLEX/EXT 6 VWS ; 07/23/2020 9:01 am INDICATION: PAIN. COMPARISON: None. ACCESSION NUMBER(S): [id number] ORDERING CLINICIAN: Sacha Guerrero FINDINGS: No fracture [...] of the lumbar spine without instability. Normal [facility] Vital Signs Date Time Vital Sign Value Performing Clinician Ted guerra 01-06-2024 13:02-0400 Body height 162.56 cm [facility] 01-06-2024 13:02-0400 Body mass index (BMI) [Ratio] 50.5 kg/m2 [facility] 01-06-2024 13:02-0400 Body temperature 96.3 [degF] [facility] 01-06-2024 13:02-0400 Body weight 133.46 kg [facility] 01-06-2024 13:02-0400 Diastolic blood pressure 90 mm[Hg] [facility] 01-06-2024 13:02-0400 Heart rate 81 /min [facility] 01-06-2024 13:02-0400 Respiratory rate 18 /min [facility] 01-06-2024 13:02-0400 SaO2% (BldA) [Mass fraction] 98 % [facility] 01-06-2024 13:02-0400 Systolic blood pressure 179 mm[Hg] [facility] Encounters Encounter Date Encounter Type Care Provider Facility Start: 01-26-2024 End: 01-26-2024 ambulatory AB [facility] Start: 01-06-2024 End: 01-06-2024 ambulatory [facility] Work Phone: Start: 01-06-2024 End: 01-06-2024 Patient encounter procedure [facility] Nephrology Javier Work Phone: Start: 11-23-2023 End: 11-23-2023 Encounter for other specified special examinations JOSE ANGEL MEEHAN [facility] Start: 11-23-2023 End: 11-23-2023 ambulatory JOSE ANGEL MEEHAN [facility] Start: 10-26-2023 End: 10-26-2023 ambulatory JOSEY KWOK [facility] Start: 07-20-2023 End: 07-20-2023 ambulatory TIAN FELTON [facility] Start: 07-09-2023 ambulatory JOSE ANGEL MEEHAN [facility] Start: 06-30-2023 End: 06-30-2023 [facility] Start: 05-31-2023 End: 05-31-2023 ambulatory JOSE ANGEL Rene SHEFALI [facility] Start: 03-26-2023 ambulatory JOSE ANGEL Rene SHEFALI [facility] Start: 03-23-2023 End: 03-23-2023 [facility] Start: 02-16-2023 End: 02-16-2023 ambulatory NATALIA KUHN [facility] Start: 02-09-2023 End: 02-09-2023 ambulatory DARIO ALARCON [facility] Start: 02-01-2023 End: 02-01-2023 ambulatory JENNIFER ACOSTA [facility] Start: 12-02-2022 ambulatory Desmond ANDERS Facility :[facility] Start: 11-13-2022 ambulatory Desmond ANDERS Facility:[facility] Start: 07-17-2022 End: 07-18-2022 ambulatory JOSEY KWOK Facility:[facility] Start: 07-02-2022 End: 07-03-2022 ambulatory JOSEY KWOK Facility:[facility] Start: 05-25-[address] DEBBIE Garcia Facili ty:[facility] Start: 03-09-2022 End: 03-10-[address] DEBBIE ARVIZU . Facility:[facility] Start: 02-23-2022 End: 02-24-[address] DEBBIE ARVIZU . Facility:[facility] Start: 02-02-2022 End: 02-03-[address] DEBBIE ARVIZU . Facility:[facility] Start: 01-26-2022 End: 01-27-[address] DEBBIE ARVIZU . Facility:[facility] Start: 01-23-2022 End: 01-24-[address] DEBBIE ARVIZU . Facility:[facility] Start: 01-21-2022 End: 01-22-[address] DEBBIE ARVIZU . Facility:[facility] Start: 01-14-2022 End: 01-15-[address] DEBBIE ARVIZU . Facility:[facility] Start: 10-28-2021 End: 10-28-[address] DEBBIE ARVIZU . Facility:[facility] Start: 10-09-2021 End: 10-10-[address] DEBBIE ARVIZU . Facility:[facility] Start: 08-12-2021 End: 08-12-[address] DEBBIE ARVIZU . Facility:[facility] Start: 07-28-[address] DEBBIE ARVIZU . Facili ty:[facility] Start: 09-29-2016 End: 09-30-2016 Ambulatory DEFAULT PHYSICIAN Facility:[facility] Plan of Treatment Date Care Activity Detail Author Renal function 1999 panel - Serum or Plasma [facility] Payers Date Payer Category Payer Medicare [id number] 1958 Medicare [id number] 1958 Unknown [id number] 1950 Unknown [id number] 2.16.84 [id number] 1950 Unknown [id number] 2.16.84 0.1.255898.3.579.2.593 1950 Unknown [id number] 2.16.84 0.1.099294.3.579.2.593 1950 Unknown [id number] 2.16.84 0.1.093608.3.579.2.593 1951 Unknown [id number] 2.16.84 0.1.795612.3.579.2.593 1951 Unknown [id number] 2.16.84 0.1.998311.3.579.2.593 1951 Unknown [id number] 2.16.84 0.1.421448.3.579.2.593 1950 Unknown [id number] 2.16.84 0.1.724015.3.579.2.593 1951 Unknown [id number] 2.16.84 0.1.125901.3.579.2.593 1951 Unknown [id number] 2.16.84 0.1.084503.3.579.2.593 1951 Unknown [id number] 2.16.84 0.1.027165.3.579.2.593 1951 Unknown [id number] 2.16.84 0.1.205266.3.579.2.593 1951 Unknown [id number] 2.16.84 0.1.610287.3.579.2.593 1951 Unknown [id number] 2.16.84 0.1.916408.3.579.2.593 1950 Unknown [id number] 2.16.8 40.1.922710.3.579.2.727 Unknown Unknown [id number] Social History Date Type Detail Facility Start: 01-06-2024 [facility] Start: 1950 Sex Assigned At Female [facility] Clinical Notes 01-28-2023 to 01-26-2024 Note Date & Type Note Facility 01-26-2024 Note [facility] Cardiology Clinic Note Chief Complaint: Patient is here today for follow up [facility] ED visit. She was having chest pressure, and was told in their opinion it was acid reflux . She was going to cancel this apt today but then started getting chest pressure again. BP has been anywhere from 130-199 systolic she says. HPI: Vero Sadler is a 73 y.o. female History of myocardial bridging, atrial tachycardia and nonsustained ventricular tachycardia here in routine follow-up. Has had episodes of epigastric discomfort while she is lying down. This is occurred multiple times over the past 2 to 3 weeks. She states that she has to get up, drink water, and the pain improves. She has no exertional chest pain. Her shortness of breath is stable. She denies significant lightheadedness or dizziness. She has intermittent palpitations that are separate from the epigastric discomfort. Pertinently, she drinks a glass of wine 2-3 times a week. She drinks 2 cups of coffee daily. It used to be a lot more until her primary care physician asked her to cut down. Graft she does not smoke. Apparently, she had an EGD and colonoscopy a few years ago that were normal per her description. Cardiology ROS: Review of Systems Constitutional: Positive for malaise/fatigue. Cardiovascular: Positive for chest pain ( pressure ), dyspnea on exertion, leg swelling and palpitations ( beating hard ). Respiratory: Positive for shortness of breath. Hematologic/Lymphatic: Bruises/bleeds easily. Musculoskeletal: Positive for back pain, muscle weakness and myalgias. Gastrointestinal: Positive for heartburn. Neurological: Positive for headaches. All other systems reviewed and are negative. Past Medical History She has a past medical history of Abnormal ECG, Adverse effect of anesthesia, Arthritis, Chronic kidney disease, COPD (chronic obstructive pulmonary disease) (CMS/HCC), Hypertension, Myocardial infarction (CMS/[facility]), and Obstructive sleep apnea (10/02/2022). Surgical History She has a past surgical history that includes Eye surgery; Cardiac catheterization; Foot surgery (Right); Hysterectomy; Colonoscopy (02/09/2023); Insert / replace / remove pacemaker (01/12/2023); and Other surgical history (Bilateral, 05/31/2023). Social History She reports that she quit [...] 90 tablet, Rfl: 3 calcium carbonate-vitamin D3 (Calcium with Vitamin D) 600 mg-10 mcg (400 unit) tablet, Take 2 tablets by mouth in the morning., Disp: 60 tablet, Rfl: 11 carvedilol (Coreg) 12.5 mg tablet, Take 1 tablet (12.5 mg) by mouth in the morning and at bedtime., Disp: 60 tablet, Rfl: 0 hydrALAZINE (Apresoline) 100 mg tablet, Take 100 mg by mouth in the morning, at noon, and at bedtime., Disp: , Rfl: hyoscyamine (Levsin/SL) 0.125 mg SL tablet, every 6 (six) hours if needed., Disp: , Rfl: levothyroxine (Synthroid, Levoxyl) 100 mcg tablet, Take 100 mcg by mouth before breakfast., Disp: , Rfl: liothyronine (Cytomel) 25 mcg tablet, Take 1.5 tablets by mouth in the morning., Disp: , Rfl: lisinopril 10 mg tablet, Take 1 tablet (10 mg) by mouth in the morning., Disp: 90 tablet, Rfl: 3 lovastatin (Mevacor) 20 mg tablet, Take 20 mg by mouth in the morning., Disp: , Rfl: pantoprazole (ProtoNix) 40 mg EC tablet, TAKE 1 TABLET BY MOUTH ONCE EVERYDAY BEFORE BREAKFAST *DO NOT CRUSH/CHEW/SPLIT*, Disp: 90 tablet, Rfl: 1 revefenacin (Yupelri) 175 mcg/3 mL nebulizer solution, Take 175 mcg by nebulization if needed each day., Disp: , Rfl: traMADol (Ultram) 50 mg tablet, TAKE 1 TABLET BY MOUTH TWICE A DAY NEEDED FOR 30 DAYS, Disp: , Rfl: diclofenac (Voltaren) 75 mg EC tablet, Take 75 mg by mouth in the morning and at bedtime. Do not crush, chew, or split., Disp: , Rfl: methylcellulose, laxative, (CitruceL Sugar Free) powder, Mix 1 tablespoon in 8 oz (240 mL) of cold water. Take by mouth once daily. Increase frequency as needed up to 3 times daily. Start with a low dose and slowly increase to prevent worse bloating., Disp: 479 g, Rfl (more content not included)... [facility] 10-26-2023 Note [facility] Consul t Note Reason [...] obstructive pulmonary disease) (CMS/HCC) Hypertension Myocardial infarction ([facility]) Obstructive sleep apnea 10/02/2022 SOBIA=17.7 events/hour; Pranav SaO2=76%; Uimwmr=011.0 lbs; BMI=52.7 kg/m2, Home Sleep Apnea Testing on 09/25/2022 at [facility] PSH: Past Surgical History: Procedure [...] Allergen Reactions Penicillins (more content not included)... [facility] 07-20-2023 Note Division of Nephrolo gy Vero [...] was recently taken off spironolactone by her scale tester. She is on po bumex daily. For [...] sleep apnea 10/02/2022 SOBIA=17.7 events/hour; Pranav SaO2=76%; Wjsbsf=593.0 lbs; BMI=52.7 kg/m2, Home Sleep Apnea Testing on 09/25/2022 at [facility] Family History Problem Relation Name [...] the morning, afternoon, and at bedtime. omega 4-ctn-oqv-fish oil 350 mg-235 mg- 90 mg-597 mg [...] past 168 hour(s)) (more content not included)... [facility] 07-09-2023 Note [facility] Interventional Pain Management SUBJECTIVE: Subjective 07/09/23 CC: [...] since last visit she has seen cardiology quality control engineer for [place]. patient reports that overall she [...] that she becerra (more content not included)... [facility] 05-31-2023 Note Interventional Pain Management Nursing Note / Nurse Post-Call Note S/p SHANTE TFESI S1 Patient reports pain level 0. Pre procedure pain level 8 on 05/31/23. Denies problems or complications. Reminded of next appointment 07/09/23 at 1030. [facility] 03-26-2023 Note [facility] Interventional Pain Management SUBJECTIVE: Subjective 03/26/23 CC: [...] since last visit she has seen cardiology quality control engineer for [place]. patient reports that overall she [...] plans to dispo (more content not included)... [facility] 03-23-2023 Note [place] [facility] Consul t Note Reason for visit: [...] sleep apnea 10/02/2022 SOBIA=17.7 events/hour; Pranav SaO2=76%; Oidzju=534.0 lbs; BMI=52.7 kg/m2, Home Sleep Apnea Testing on 09/25/2022 at [facility] PSH: Past Surgical History: Procedure [...] on File Prio (more content not included)... [facility] 02-16-2023 Note [facility] Gastroenterolog y Follow-Up Patient Visit [...] 1 year. Stool studies were submitted to [facility], no results available. Ongoing altered BMs, however [...] with abdominal pain, bloating, and diarrhea. [facility]: [facility] Attending Physician: Dr. Dario Alarcon Mining Helper: Nancy Prado, Fellow Procedure Details: Informed consent [...] small external hemorrhoid (more content not included)... [facility] 02-09-2023 Note Patient: Vero boudreaux Procedure Summary Date: 02/09/23 Room / Location: [facility] Anesthesia Start: 1336 Anesthesia Stop: 1425 [...] no known notable events for this encounter. [facility] 02-09-2023 Note Patient: Vero boudreaux Procedure Summary Date: 02/09/23 Room / Location: [facility] Anesthesia Start: 1336 Anesthesia Stop: Procedures: [...] 3 Anesthesia Post Transport Note Transport to: [place] PACU O2 Route: room air Patient Monitor: direct observation Transport: uneventful Patient condition is: stable [facility] 02-09-2023 Note Patient: Vero boudreaux Procedure Information Date/Time: 02/09/23 1100 Scheduled providers: Dario Alarcon MD; Abel Downing MD Procedures: DIAGNOSTIC COLONOSCOPY EGD Location: [facility] Relevant Problems Anesthesia (+) KATIE on CPAP (+) Obstructive sleep apnea Cardio (+) A-fib (CMS/HCC) (+) Essential hypertension (+) Nonsustained paroxysmal ventricular tachycardia (CMS/HCC) (+) Other secondary pulmonary hypertension (CMS/HCC) (+) 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CMS/HCC) Clinical information reviewed: Tobacco Allergies [...] Plan discussed with resident. 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 Do not wear perfume, make-up, nail marshallese, or lotions on the day of your [...] need to make any changes, please call [phone]. Notify your surgeon if you develop any illness such as a cold, cough, fever, sore throat or vomiting between now and your surgery. Thank you for entrusting us with your care. [facility] Surgical Services Team [facility] Evaluation note Diagnosis Onset Date CKD (chronic kidney disease) stage 4, GFR 15-29 ml/min acute Hyperkalemia acute [id number] acute Secondary hyperparathyroidism acute Chronic kidney disease nonea [facility] Work Phone: Summary Purpose Family History No Family History Records Found Relationship Condition Age at Onset Recorded Date/T des father Malignant neoplasm Unknown mother Abscess of intestine due to Crohn's disease Unknown Malignant neoplasm Unknown Advance Directives No Advanced Directives Records Found Advance Directive Response Recorded Date/ Time Advance Directives No January 06, 2024 12:45pm Chief Complaint and Reason for Visit Chief Complaint RENAL CKD 3 Reason for Visit CKD (chronic kidney disease) stage 4, GFR 15-29 ml/min Hyperkalemia [id number] Secondary hyperparathyroidism Chronic kidney disease Additional Source Comments INFORMATION SOURCE (unrecogn ized section and content) DATE CREATED AUTHOR 09/08/2017 [facility] DATE CREATED AUTHOR AUTHOR'S ORGANIZ ATION 09/27/2020 [facility] DATE CREATED AUTHOR AUTHOR'S ORGANIZ ATION 07/24/2022 [facility] DATE CREATED AUTHOR AUTHOR'S ORGANIZ ATION 11/21/2022 [facility] DATE CREATED AUTHOR AUTHOR'S ORGANIZ ATION 01/28/2024 [facility] Care Teams (unrecognized sec tion and content) Team Status: Active Member Role Status Dates Debbie rAvizu MD Primary Care Provider Active Team Status: Inactive Member Role Status Dates Debbie Arvizu MD Primary Care Provide r, Referring Provider [...] BE BASED ON THE PRIMARY CLINICAL RECORDS. [facility] [employer] [facility]. provides no warranty or guarantee of the accuracy or completeness of information in this document.
[2024-01-31 11:59] LABS: Hematocrit 37.7 % (36.0-48.0); Hemoglobin 11.7 g/dL (12.0-16.0); Mean Corpuscular Hemoglobin 29.3 pg (26.7-34.0); Mean Corpuscular Volume 94.3 fL (81.0-99.0); Mean Platelet Volume 9.5 fL (9.5-13.5); Platelet Count 224 10^3/uL (150-450); Red Cell Distribution Width 13.8 % (11.0-15.0); White Blood Count 7.2 10^3/uL (4.0-11.0)
[2024-01-31 12:49] LABS: Anion Gap 15.6; BUN Creatinine Ratio 16.8; Calcium 8.8 mg/dL (8.5-10.1); Carbon Dioxide 23.3 mmol/L (21.0-32.0); Chloride 110 mmol/L (98-107); Estimated GFR (African America 31 (>=60 mL/min/1.73m^2); Estimated GFR (Non-African Ame 26 (>=60 mL/min/1.73m^2); Glucose 86 mg/dL (74-106); Magnesium 1.7 mg/dL (1.8-2.4); Phosphorus 3.1 mg/dL (2.6-4.7); Potassium 4.9 mmol/L (3.5-5.1); Sodium 144 mmol/L (136-145); Uric Acid 7.6 mg/dL (2.6-6.0)
[2024-02-01 10:13] LABS: PTH, Intact 46 pg/mL (15-65)
[2024-02-01 14:21] LABS: Bilirubin Urine NEGATIVE (NEGATIVE); Blood Urine NEGATIVE (NEGATIVE); Clarity Urine CLEAR (CLEAR); Color Urine LT. YELLOW (YELLOW); Glucose Urine UA NEGATIVE (NEGATIVE); Ketones Urine NEGATIVE (NEGATIVE); Leukocyte Esterase Urine TRACE (NEGATIVE); Nitrite Urine POSITIVE (NEGATIVE); Protein Urine NEGATIVE (NEG/TRACE); Urobilinogen Urine 0.2 EU/dL (0.2-1.0)
[2024-02-01 14:31] LABS: Bacteria Urine LARGE #/HPF (NONE SEEN); Mucus Urine NONE SEEN (NONE SEEN); RBC Urine NONE SEEN #/HPF (0-2); Squamous Epithelial Cell Urine FEW #/LPF (NONE/RARE)
[2024-02-01 14:42] LABS: Creatinine Urine Random 106.23 mg/dL (20.00-300.00); Protein Creatinine Ratio Urine 0.22; Total Protein Urine Random 22.9 mg/dL (<=11.9)
== END 2024-01-31 11:40 | disposition home or self-care (01) ==
LOC: LAB 11:39
PROVIDERS: PCP Family Medicine; Visit Provider Internal Medicine
DX: I12.9 Hypertensive chronic kidney disease with stage 1 through stage 4 chronic kidney disease, or unspecified chronic kidney disease (principal); N18.4 Chronic kidney disease, stage 4 (severe); N25.81 Secondary hyperparathyroidism of renal origin; E87.5 Hyperkalemia
CPT/HCPCS: 36415; 80069; 81001; 82306; 82570; 83735; 83970; 84156; 84550; 85027

== ENCOUNTER 2024-02-14 12:03 | Outpatient (OUT) | payer MEDICARE, SELFPAY ==
--- OUTSIDE RECORDS SUMMARY | 2024-02-14 12:26 | XMS_ITS | CCD ---
Author Organization [facility] Team Providers Care Babbitter Name Role Phone PHYSICIAN, DEFAULT Unavailable Unavailable PHYSICIAN, DEFAULT Unavailable Unavailable DEBBIE ARVIZU Unavailable Unavailable JOEYY ., DR LEWIS Consulting Unavailable HOY ., DR LEWIS Attending Unavailable HOY ., DR LEWIS Primary Care Unavailable HOY ., DR LEWIS Admitting Unavailable MEEKER, DR RAJI Odonnell Consulting Unavailable HOY ., DR LEWIS Consulting Unavailable HOY ., DR LEWIS Attending Unavailable HOY ., DR LEWIS Primary Care Unavailable HOY ., DR LEWIS Admitting Unavailable HOY ., DR LEWIS Primary Care Unavailable HOY ., DR LEWIS Consulting Unavailable HURTADOJAMESCAPO Admitting Unavailable CAPO HURTADO Attending Unavailable HOLula .DR LEWIS Primary Care Unavailable Ambar Moon Consulting Unavailable CAPO HURTADO Attending Unavailable JAMES HURTADOSON Admitting Unavailable CAPO HURTADO Consulting Unavailable JOSEY KWOK Admitting Unavailable HOY .DR LEWIS Primary Care Unavailable JOSEY KWOK [...] Unavailable HOY ., DR LEWIS Admitting Unavailable MEEKER, DR RAJI Odonnell Consulting Unavailable Desmond ANDERS Attending Unavailable ELTAHAWY, TATO Attending Unavailable JOSEY KWOK Attending Unavailable JOSEY KWOK Referring Unavailable JOSEY KWOK Attending Unavailable JOSE ANGEL MEEHAN Referring Unavailable JOSE ANGEL MEEHAN Attending Unavailable JOSE ANGEL MEEHAN Referring Unavailable JOSE ANGEL MEEHAN Referring Unavailable JOSE ANGEL MEEHAN Referring Unavailable JOSEY KWOK Referring Unavailable JOSE ANGEL MEEHAN Attending Unavailable NATALIA KUHN Attending UnavailOLLIE Mohr Attending Unavailable JOSE ANGEL MEEHAN Attending Unavailable Allergies Allergy Classification Reported Allergen(s) Allergy Type Date of Onset Reaction(s) Facility (5 sources) Penicillins; Translations: [PENICILLINS] Drug allergy (disorder) 5 AOF, Unknown Reaction [facility] Repository (1 source) Adhesive Tape Allergy to substance 4 skin rash [facility] Medications Current Medications Medication Drug Class(es) Dates Sig (Normalized) Sig (Original) [id number] actuat albuterol 0.09 mg/actuat metered dose [...] Problem Date Documented Date Episodic/Chronic Abdominal pain (2 sources) Epigastric pain; Translations: [Epigastric pain] Onset: 4 Episodic Cardiac dysrhythmias (4 sources) Supraventricular tachycardia; Translations: [SUPRAVENTRICULAR TACHYCARDIA] Onset: 3 Chronic Chronic kidney disease (3 sources) Chronic kidney disease stage 4; Translations: [Chronic kidney disease, stage 4 (severe)] 01-06-2024 Chronic Chronic kidney disease (2 sources) Chronic kidney disease; Translations: [Chronic kidney disease, stage 3b] Onset: 4 Conduction disorders (4 sources) Encounter for checking and testing of cardiac pacemaker pulse generator [battery]; Translations: [Presence of cardiac pacemaker] Onset: 4 Chronic Congestive heart failure; nonhypertensive (3 sources) Acute combined systolic (congestive) and diastolic (congestive) heart failure; Translations: [Unspecified diastolic (congestive) heart failure] Onset: 2 Chronic Disorders of lipid metabolism (2 sources) Hyperlipidemia, unspecified; Translations: [Pure hypercholesterolemia, unspecified] Onset: 2 Chronic Fluid and electrolyte disorders [...] Other Problems Problem Classification Problem Date Documented Date Episodic/Chronic Cardiac dysrhythmias (5 sources) Palpitations; Translations: [PALPITATIONS] Onset: 01-14-2022 Episodic Deficiency and other anemia (1 source) Anemia, unspecified; Translations: [ANEMIA UNSPECIFIED] Onset: 01-19-2022 Episodic E Codes: Cut/pierceb (1 source) Contact with other sharp object(s), not elsewhere classified, initial encounter; Translations: [[facility] OT SHRP OB NOT ELSW CLASS INI] Onset: 08-14-2021 Episodic Nonspecific chest pain (1 source) Chest pain, unspecified; Translations: [CHEST PAIN UNSPECIFIED] Onset: 01-29-2022 Episodic Open wounds of extremities (4 sources) Laceration without foreign body, right lower leg, initial encounter; Translations: [LACERATION W/O FB RT LOW LEG INIT] Onset: 08-12-2021 Episodic Other aftercare (1 source) 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; Translations: [[facility] ANIMAL NURSE CURRENT DRUG THERAPY] Onset: 08-14-2021 Episodic Other [...] INSUFF CHRONIC PERIPHERAL] Onset: 01-19-2022 Episodic Other lower respiratory disease (4 sources) [...] BOTH CERVIX AND UTERUS] Onset: 08-14-2021 Episodic Screening and history of mental health [...] Range Facility Office Visiton 01-26-2024 Follow-up visit [id number] Brian Sadler se 1950 F Date Provider Department Center 01/26/2024 Jj-TATO SALCIDO CARD [facility] Family History Problem Relation Age of Onset Other Mother Coronary artery disease Mother Other Mother Other Mother Other Father Hypertension Father Hyperlipidemia Father Other Daughter Family Status - Relation Status Age at Mother Father Daughter Level of Service:43892 SD OFFICE/OUTPATIENT ESTABLISHED LOW MDM 20 MIN [facility] MR LUMBAR SPINE WO CONTRASTo n 11-23-2023 [...] of the abdominal aorta with eccentric plaque. DEGENERATIVE/POSTSURGIC AL FINDINGS: Intraspinous device is present at L3-L4 [...] narrowing. Electronically signed: Arnol Cutler MD. [facility] Comment on above: Order Comment: ORDER IN EPIC NURSNOTEon 11-23-2023 SANDIE Coughlin from [employer] prepped pacemaker. Patient verbalizes no issues with device. Monitor hooked up for continuous patient monitoring throughout the scan. [facility] Office Visiton 10-26-2023 Follow-up visit [id number] Brian Sadler se 1950 F Date Provider Department Center 10/26/2023 JOSEY ARNOLD CARD [facility] Family History Problem Relation Age of Onset Other Mother Coronary artery disease Mother Other Mother Other Mother Other Father Hypertension Father Hyperlipidemia Father Other Daughter Family Status - Relation Status Age at Mother Father Daughter Level of Service:74447 SD OFFICE/OUTPATIENT ESTABLISHED LOW MDM 20 MIN [facility] Office Visiton 07-20-2023 Follow-up visit [id number] Brian Sadler se 1950 F Date Provider Department Center 07/20/2023 OLLIE BRADSHAW [facility] NEPHRO Comprehensiv Family History Problem Relation Age of Onset Other Mother Coronary artery disease Mother Other Mother Other Mother Other Father Hypertension Father Hyperlipidemia Father Other Daughter Family Status - Relation Status Age at Mother Father Daughter Level of Service:09506 SD OFFICE/OUTPATIENT ESTABLISHED LOW MDM 20 MIN Reason for Visit and Comments: Follow-up [[id number]] [facility] CREATININE, URINE, RANDOMon 07-09-2023 Creatinine (U) [Mass/Vol] 142.0 mg/dL Normal 26-299 [facility] Comment on above: Performed By: #### L [id number] #### [facility] ([facility]) [address] [place] [address] Performed By: #### L [id number] ####[facility] ([facility])[address] [place] [address] Follow-Upon 07-09-2023 Follow-Up [id number] Brian Sadler se 1950 F Date Provider Department [place] 07/09/2023 JOSE ANGEL LEE MP PAIN [facility] Family History Problem Relation Age of Onset Other Mother Coronary artery disease Mother Other Mother Other Mother Other Father Hypertension Father Hyperlipidemia Father Other Daughter Family Status - Relation Status Age at Mother Father Daughter Level of Service:79154 SD OFFICE/OUTPATIENT ESTABLISHED LOW MDM 20 MIN Reason for Visit and Comments: Follow-up [[id number]] - F/U S/P TFESI S1 - 30% pain relief [facility] MICROALBUMIN, URINE, RANDOMo n 07-09-2023 Albumin DL <= 20 mg/L (U) [Mass/Vol] 2.3 mg/dL Normal [facility] Comment on above: Performed By: #### L [id number] ####[facility] ([facility])[address] [place] [address] MICROALBUMIN/CREATI NINE (MG/G) IN URINE 16.2 mg/g Creat Normal 0.0-30.0 [facility] Comment on above: Performed By: #### L [id number] ####[facility] ([facility])[address] [place] [address] PROTEIN, URINE, RANDOMon Protein (U) [Mass/Vol] 16.6 mg/dL [facility] Comment on above: Result Comment: Ther e are no established reference values for random urine specimens. Performed By: #### L [id number] #### [facility] ([facility]) [address] [place] [address] RENAL FUNCTION PANELon 07-08 Albumin [Mass/Vol] 3.9 g/dL Normal 3.5-5.[address] [facility] Comment on above: Performed By: #### L AB19 ####[facility] ([facility])[address] [place] [address] Anion gap [Moles/Vol] 11 mmol/L Normal 7-20 [facility] Comment on above: Performed By: #### L AB19 ####[facility] ([facility])[address] [place] [address] CALCIUM (MG/DL) CORRECTED FOR ALBUMIN IN SER/PLAS 9.18 mg/dL Normal [facility] Comment on above: Performed By: #### L [id number] ####[facility] ([facility])[address] [place] [address] Calcium [Mass/Vol] 9.1 mg/dL Normal 8.6-10.[address] [facility] Comment on above: Performed By: #### L [id number] ####[facility] [place] [address] Chloride [Moles/Vol] 109 mmol/L High 98-107 [facility] Comment on above: Performed By: #### L AB19 ####[facility] ([facility])[address] [place] [address] CO2 [Moles/Vol] 25 mmol/L Normal 21-31 [facility] Comment on above: Performed By: #### L [id number] ####[facility] ([facility])[address] [place] [address] Creatinine [Mass/Vol] 2.24 mg/dL High 0.60-1.20 [facility] Comment on above: Performed By: #### L AB19 ####[facility] ([facility])[address] [place] [address] FASTING? UNKNOWN [facility] Comment on above: Performed By: #### L AB19 ####[facility] ([facility])[address] [place] [address] GLOMERULAR FILTRATION RATE ML/MIN/1.73 SQ M.PREDICTED 22.7 mL/min/1.73m*2 Low >60.0 [facility] Comment on above: Result Comment: [facility]'s estimated glomerular filtration rate (eGFR) will [...] of individuals. Performed By: #### L AB19 ####[facility] ([facility])[address] [place] [address] Glucose [Mass/Vol] 83 mg/dL Normal 70-[address] [facility] Comment on above: Performed By: #### L AB19 ####[facility] ([facility])[address] [place] [address] Magnesium [Mass/Vol] 3.7 mg/dL Normal 2.5-5.0 [facility] Comment on above: Performed By: #### L AB19 ####[facility] ([facility] [place] [address] Potassium [Moles/Vol] 5.8 mmol/L High 3.5-5.1 [facility] Comment on above: Performed By: #### L AB19 ####[facility] ([facility])[address] [place] [address] Sodium [Moles/Vol] 139 mmol/L Normal 136-[address] [facility] Comment on above: Performed By: #### L AB19 ####[facility] ([facility])[address] [place] [address] Urea nitrogen [Mass/Vol] 46 mg/dL High 7-25 [facility] Comment on above: Performed By: #### L AB19 ####[facility] ([facility])[address] [place] [address] UREA NITROGEN/CREATININE (MASS RATIO) IN SER/PLAS 20.5 [facility] Comment on above: Performed By: #### L AB19 ####[facility] ([facility])[address] [place] [address] TSHon 07-09-2023 THYROTROPIN (MIU/L) IN SER/PLAS BY DETECTION LIMIT <= 0.05 MIU/L 0.03 mIU/L Low 0.34-5.60 [facility] Comment on above: Performed By: #### L [id number] #### [facility] ([facility]) [address] [place] [address] Orders Onlyon 06-22-2023 Orders Only [id number] Brian Sadler se 1950 F Date Provider Department Center 06/22/2023 EMMANUEL BECK CCC NEPHRO Comprehensiv Family History Problem Relation Age of Onset Other Mother Coronary artery disease Mother Other Mother Other Mother Other Father Hypertension Father Hyperlipidemia Father Other Daughter Family Status - Relation Status Age at Mother Father Daughter [facility] ANESon 05-31-2023 ANES --- Attestation signed by Jose Angel Meehan MD [...] be an additional personal documentation from me. Patient: Vero Sadler Pre-sedation Evaluation: Sedation necessary for: Analgesia and Anxiety Requesting service: pain management History of Present Illness: long stand back and leg pain bilaterally Past Medical History: Diagnosis Date Abnormal ECG Adverse effect of anesthesia heartrate drops after colonoscopy Arthritis Chronic kidney disease COPD (chronic obstructive pulmonary disease) ([facility] Hypertension Myocardial infarction ([facility]) Obstructive sleep apnea 10/02/2022 SOBIA=17.7 events/hour; Pranav SaO2=76%; Deiemo=677.0 lbs; BMI=52.7 kg/m2, Home Sleep Apnea Testing on 09/25/2022 at [facility] Principle problems: Patient Active Problem List Diagnosis Date Noted 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) 12/15/2022 KATIE on CPAP 12/15/2022 Nonsustained paroxysmal ventricular tachycardia ([facility]) 11/30/2022 A-fib ([facility]) 04/21/2022 Spinal stenosis of lumbar region with neurogenic claudication 01/30/2022 Lower abdominal pain 01/30/2022 Spondylosis of lumbosacral region without myelopathy or radiculopathy 01/30/2022 Essential hypertension 01/25/2020 Chest pain 07/27/2016 Dyspnea 07/27/2016 Edema 07/27/2016 Fatigue 07/27/2016 Lightheadedness 07/27/2016 Obstructive sleep apnea 10/02/2022 VT (ventricular tachycardia) (CMS/HCC) 04/29/2022 Clinical trial exam 04/23/2022 Allergies: Allergies Allergen Reactions Penicillins Other Yeast infection WAGE HAND/Current Medications: (Not in a hospital admission) Current [...] morning and at bedtime. 60 tablet 0 clotrimazole-betamethas one (Lotrisone) cream APPLY SMALL AMOUNT TO AFFECTED [...] prevent worse bloating. 479 g 3 omega 5-czl-pqm-fish oil 350 mg-235 mg- 90 mg-597 mg [...] exam B (more content not included)... [facility] HPon 05-31-2023 History Of Present Illness Vero Sadler is a 73 y.o. female presenting with low back pain Past Medical History She has a past medical history of Abnormal ECG, Adverse effect of anesthesia, Arthritis, Chronic kidney disease, COPD (chronic obstructive pulmonary disease) ([facility]), Hypertension, Myocardial infarction ([facility]), and Obstructive sleep apnea (10/02/2022). Surgical History [...] Sedation: MAC Attending Physician: Dr. Dario Calderon Clinical Business Manager: Nancy Prado, Fellow Procedure Details Informed consent [...] (more content not included)... Normal [facility] --- Attestation signed by Jose Angel Meehan MD [...] be an additional personal documentation from me. History Of Present Illness Vero Sadler is a 73 y.o. female presenting with long standing leg and lower back pain, She presenters today for a bilateral TFESI S1. Past Medical History She has a past medical history of Abnormal ECG, Adverse effect of anesthesia, Arthritis, Chronic kidney disease, COPD (chronic obstructive pulmonary disease) ([facility]), Hypertension, Myocardial infarction ([facility]), and Obstructive sleep apnea (10/02/2022). Surgical History [...] and Crohn's disease in her mother. Sedation: [facility] Attending Physician: Dr. Dario Calderon Clinical Business Manager: Nancy Prado, Fellow Procedure Details Informed consent [...] colon prep. (more content not included)... [facility] Prep for Procedureon 024 Prep for Procedure [id number] Brian Sadler se 1950 F Date Provider Department Center 05/24/2023 [id number] ROQUE MP PROC [facility] Family History Problem Relation Age of Onset Other Mother Coronary artery disease Mother Other Mother Other Mother Other Father Hypertension Father Hyperlipidemia Father Other Daughter Family Status - Relation Status Age at Mother Father Daughter [facility] 36on 04-22-2023 36 Patient contacted an [...] sometimes takes 48 -72 hours for the doctors/TEMPLATE INSPECTOR's to return messages. Apologized that we were not able to meet her needs and voiced that we understand her feelings and decision not to utilized services at this time [facility] 36on 04-19-2023 36 Vero has called, stating she is not feeling well, in Re: recurrent diarrhea /not feeling well and she mention a breathing test they may not work, she is looking for answers to why she is not feeling well in a lot of pain, please advise with patient [phone] ???This phone message was created by the ambulatory float staff. If you need learning support services director follow up regarding this patient, please make your appropriate clinic staff member aware, Thank you??? [facility] Telephoneon 04-19-2023 Telephone [id number] Brian Sadler se 1950 F Date Provider Department Center 04/19/2023 [id number] KUHN GI [facility] Family History Problem Relation Age of Onset Other Mother Coronary artery disease Mother Other Mother Other Mother Other Father Hypertension Father Hyperlipidemia Father Other Daughter Family Status - Relation Status Age at Mother Father Daughter [facility] Prep for Procedureon 024 Prep for Procedure [id number] DoroteoBriandylan Wick 1950 F Date Provider Department Center 04/12/2023 1611-LEENA MASON MP PROC [facility] Family History Problem Relation Age of Onset Other Mother Coronary artery disease Mother Other Mother Other Mother Other Father Hypertension Father Hyperlipidemia Father Other Daughter Family Status - Relation Status Age at Mother Father Daughter [facility] Prep for Procedureon 024 Prep for Procedure [id number] Brian Sadler se 1950 Date Provider Department Center 03/31/2023 JOSE ANGEL LEE MP PROC [facility] Family History Problem Relation Age of Onset Other Mother Coronary artery disease Mother Other Mother Other Mother Other Father Hypertension Father Hyperlipidemia Father Other Daughter Family Status - Relation Status Age at Mother Father Daughter [facility] Follow-Upon 03-26-2023 Follow-Up [id number] Brian Sadler se 1950 Date Provider Department Center 03/26/2023 JOSE ANGEL LEE MP PAIN [facility] Family History Problem Relation Age of Onset Other Mother Coronary artery disease Mother Other Mother Other Mother Other Father Hypertension Father Hyperlipidemia Father Other Daughter Family Status - Relation Status Age at Mother Father Daughter Level of Service:96991 SD OFFICE/OUTPATIENT ESTABLISHED LOW MDM 20 MIN () Reason for Visit and Comments: Follow-up [601706] - Physical Therapy only did a couple days of PT because of COPD and chest hurting [facility] Office Visiton 03-23-2023 Follow-up visit [id number] Brian Sadler se 1950 Provider Department Center 03/23/2023 241-JOSEY KWOK LEEANN Reyes Family History Problem Relation Age of Onset Other Mother Coronary artery disease Mother Other Mother Other Mother Other Father Hypertension Father Hyperlipidemia Father Other Daughter Family Status - Relation Status Age at Mother Father Daughter Level of Service:33394 SD OFFICE/OUTPATIENT ESTABLISHED LOW MDM 20 MIN [facility] Letter (Out)on 02-23-2023 Letter (Out) [id number] Brian Sadler se 1950 Date Provider Department Center 02/23/2023 NANCY AWAD MP GI [facility] Family History Problem Relation Age of Onset Other Mother Coronary artery disease Mother Other Mother Other Mother Other Father Hypertension Father Hyperlipidemia Father Other Daughter Family Status - Relation Status Age at Mother Father Daughter [facility] 36on 02-22-2023 36 Spoke with patient w ho voiced understanding not to complete the MRI at this time due to kidneys. Advised that the patient contact the Endoscopy department to review questions regarding HBT. [facility] 36 ----- Message from Natalia Kuhn NP [...] we can do the MRE. Thank you. [facility] Orders Onlyon 2023 Orders Only [id number] Brian Sadler se 1950 F [facility] Provider Department Center 2023 [id number] KUHN*NISHA GI [facility] Family History Problem Relation Age of Onset Other Mother Coronary artery disease Mother Other Mother Other Mother Other Father Hypertension Father Hyperlipidemia Father Other Daughter Family Status - Relation Status Age at Mother Father Daughter [facility] 36on 02-17-2023 36 Instruction sheet fo r HBT and US order mailed to the patient. I scanned the stool study results into patients chart and sent them into Tierra's basket. [facility] 36 ----- Message from Natalia Kuhn NP sent at 02/16/2023 7:59 PM EST ----- Gabe Esteves, Do you mind helping mailing her a Hydrogen Breath Test instruction packet and Gall bladder US orders to her house. Do you mind also calling [facility] and requesting all her stool study results from dec or jan. They never faxed us any results. They are important so I can further help her. Thank you so much. I really appreciate your help with this. [facility] Orders Onlyon 02-17-2023 Orders Only [id number] Brian Sadler se 1950 F Date Provider Department Center 02/17/2023 [id number], HISTORICAL MP GI [facility] Family History Problem Relation Age of Onset Other Mother Coronary artery disease Mother Other Mother Other Mother Other Father Hypertension Father Hyperlipidemia Father Other Daughter Family Status - Relation Status Age at Mother Father Daughter [facility] Telemedicineon 02-16-2023 Telemedicine [id number] Brian Sadler se 1950 F Date Provider Department [place] 02/16/2023 [id number]-KOLCGWWFEPRESTON KUHN*MP GI [facility] Family History Problem Relation Age of Onset Other Mother Coronary artery disease Mother Other Mother Other Mother Other Father Hypertension Father Hyperlipidemia Father Other Daughter Family Status - Relation Status Age at Mother Father Daughter Level of Service:47651 SD OFFICE/OUTPATIENT ESTABLISHED HIGH MDM 40-54 MIN [facility] Physician Referralon 023 Physician Referral [id number] :127 Normal [facility] Physician Referralon 023 Physician Referral [id number] D:127 Normal [facility] CBC AUTO DIFFon 07-17-2022 BASO # 0.0 103/ul Normal 0.0-0.1 [facility] Comment on above: Performed By: #### C BC #### [facility] [address] [address] [address] Eusebia Moralez Basophils/100 WBC (Bld) 0.6 % Normal 0.2-2.0 [facility] Comment on above: Performed By: #### C BC #### [facility] [address] [address] [address] Esuebia Moralez EO # 0.2 103/ul Normal 0.0-0.7 [facility] [facility] Comment on above: Performed By: #### C BC #### [facility] [address] [address] [address] Eusebia Moralez Eosinophils/100 WBC (Bld) 2.2 % Normal 0.9-7.0 [facility] Comment on above: Performed By: #### C BC #### [facility] [address] [address] [address] Eusebia Moralez Erythrocyte distribution width (RBC) [Ratio] 13.0 % Normal 11.0-15.0 [facility] Comment on above: Performed By: #### C BC #### [facility] [address] [place] [address] Dr. Eusebia Moralez Hematocrit (Bld) [Volume fraction] 40.5 % Normal 36.0-48.0 [facility] Comment on above: Performed By: #### C BC #### [facility] [address] [place] [address] Dr. Eusebia Moralez Hemoglobin (Bld) [Mass/Vol] 12.7 g/dL Normal 12.0-16.0 [facility] Comment on above: Performed By: #### C BC #### [facility] [address] [place] [address] Dr. Eusebia Moralez IG # 0.02 10e3/ul Normal 0.00-0.03 [facility] Comment on above: Performed By: #### C BC #### [facility] [address] [place] [address] Dr. Eusebia Moralez IG % 0.3 % Normal 0.0-0.5 [facility] Comment on above: Performed By: #### C BC #### [facility] [address] [place] [address] Dr. Eusebia Moralez LYMPH # 1.4 103/ul Normal 1.2-3.8 [facility] Comment on above: Performed By: #### C BC #### [facility] [address] [place] [address] Dr. Eusebia Moralez Lymphocytes/100 WBC (Bld) 19.9 % Critically low 20.5-60.0 [facility] Comment on above: Performed By: #### C BC #### [facility] [address] [place] [address] Dr. Eusebia Moralez MANUAL DIFF REQ NO Normal [facility] Comment on above: Performed By: #### C BC #### [facility] [address] [place] [address] Dr. Euseiba Moralez MCH (RBC) [Entitic mass] 29.1 pg Normal 26.7-34.0 [facility] Comment on above: Performed By: #### C BC #### [facility] [address] [place] [address] Dr. Eusebia Moralez MCHC (RBC) [Mass/Vol] 31.4 g/dL Normal 29.9-35.2 [facility] Comment on above: Performed By: #### C BC #### [facility] [address] [place] [address] Dr. Eusebia Moralez MCV (RBC) [Entitic vol] 92.9 fL Normal 81.0-99.0 [facility] Comment on above: Performed By: #### C BC #### [facility] [address] [place] [address] Dr. Eusebia Moralez MONO # 0.7 103/ul Normal 0.3-0.8 [facility] Comment on above: Performed By: #### C BC #### [facility] [address] [place] [address] Dr. Eusebia Moralez Monocytes/100 WBC (Bld) 9.4 % Normal 1.7-12.0 [facility] Comment on above: Performed By: #### C BC #### [facility] [address] [place] [address] Dr. Eusebia Moralez NEUT # 4.7 103/ul Normal 1.4-6.5 [facility] Comment on above: Performed By: #### C BC #### [facility] [address] [place] [address] Dr. Eusebia Moralez Neutrophils/100 WBC (Bld) 67.6 % Normal 43.0-75.0 [facility] Comment on above: Performed By: #### C BC #### [facility] [address] [place] [address] Dr. Eusebia Moralez Platelet mean volume (Bld) [Entitic vol] 9.9 fL Normal 9.5-13.5 [facility] Comment on above: Performed By: #### C BC #### [facility] [address] [place] [address] Dr. Eusebia Moralez PLT 218 103/ul Normal 150-450 [facility] Comment on above: Performed By: #### C BC #### [facility] [address] [place] [address] Dr. Eusebia Moralez RBC 4.36 106/ul Normal 4.20-5.40 [facility] Comment on above: Performed By: #### C BC #### [facility] [address] [place] [address] Dr. Eusebia Moralez WBC 6.9 103/ul Normal 4.0-11.0 [facility] Comment on above: Performed By: #### C BC #### [facility] [address] [place] [address] Dr. Eusebia Moralez PROF CHEM 8 (BAS METB)on Anion gap [Moles/Vol] 9.0 mmol/L Normal [facility] Comment on above: Performed By: #### B MP #### [facility] [address] [place] [address] Dr. Eusebia Moralez Calcium [Mass/Vol] 9.2 mg/dL Normal 8.5-10.1 [facility] Comment on above: Performed By: #### B MP #### [facility] [address] [place] [address] Dr. Eusebia Moralez Chloride [Moles/Vol] 103 mmol/L Normal 98-107 [facility] Comment on above: Performed By: #### B MP #### [facility] [address] [place] [address] Dr. Eusebia Moralez CO2 [Moles/Vol] 32.9 mmol/L Critically high 21.0-32.0 [facility] Comment on above: Performed By: #### B MP #### [facility] [address] [place] [address] Dr. Eusebia Moralez Creatinine [Mass/Vol] 1.74 mg/dL Critically high 0.55-1.02 [facility] Comment on above: Performed By: #### B MP #### [facility] [address] [place] [address] Dr. Eusebia Moralez EGFR-AF LEBANESE 35 mL/min/1.73m2 Critically low >=60 [facility] Comment on above: Performed By: #### B MP #### [facility] [address] [place] [address] Dr. Eusebia Moralez EGFR-NON AF LEBANESE 29 mL/min/1.73m2 Critically low >=60 [facility] Comment on above: Performed By: #### B MP #### [facility] [address] [address] [address] Eusebia Moralez Glucose [Mass/Vol] 101 mg/dL Normal 74-106 [facility] Comment on above: Performed By: #### B MP #### [facility] [address] [address] [address] Eusebia Moralez Potassium [Moles/Vol] 3.9 mmol/L Normal 3.5-5.1 [facility] Comment on above: Performed By: #### B MP #### [facility] [address] [address] [address] Eusebia Moralez Sodium [Moles/Vol] 141 mmol/L Normal 136-145 [facility] Comment on above: Performed By: #### B MP #### [facility] [address] [address] [address] Eusebia Moralez Urea nitrogen [Mass/Vol] 34.0 mg/dL Critically high 7.0-18.0 [facility] Comment on above: Performed By: #### B MP #### [facility] [address] [address] [address] Eusebia Moralez Urea nitrogen/Creatinine [Mass ratio] 19.5 mg/mg Normal [facility] Comment on above: Performed By: #### B MP #### [facility] [address] [address] [address] Eusebia Moralez CBC AUTO DIFFon 07-02-2022 BASO # 0.1 103/ul Normal 0.0-0.1 [facility] Comment on above: Performed By: #### C BC ####[facility] [address] [address]Dr. Eusebia Moralez Basophils/100 WBC (Bld) 0.7 % Normal 0.2-2.0 [facility] Comment on above: Performed By: #### C BC ####[facility] [address] [address]Dr. Eusebia Moralez EO # 0.1 103/ul Normal 0.0-0.7 [facility] Comment on above: Performed By: #### C BC ####[facility] [address] [place], [place] [address]Dr. Eusebia Moralez Eosinophils/100 WBC (Bld) 1.8 % Normal 0.9-7.0 [facility] Comment on above: Performed By: #### C BC ####[facility] [address] [place], [place] [address]Dr. Eusebia Moralez Erythrocyte distribution width (RBC) [Ratio] 13.1 % Normal 11.0-15.0 [facility] Comment on above: Performed By: #### C BC ####[facility] [address] [place], [place] [address]Dr. Eusebia Moralez Hematocrit (Bld) [Volume fraction] 40.2 % Normal 36.0-48.0 [facility] Comment on above: Performed By: #### C BC ####[facility] [address] [place], [place] [address]Dr. uEsebia Moralez Hemoglobin (Bld) [Mass/Vol] 12.5 g/dL Normal 12.0-16.0 [facility] Comment on above: Performed By: #### C BC ####[facility] [address] [place], [place] [address]Dr. Eusebia Moralez IG # 0.01 10e3/ul Normal 0.00-0.03 [facility] Comment on above: Performed By: #### C BC ####[facility] [address] [place], [place] [address]Dr. Eusebia Kirt IG % 0.1 % Normal 0.0-0.5 [facility] Comment on above: Performed By: #### C BC ####[facility] [address] [place], [place] [address]Dr. Lisadenise Moralez LYMPH # 1.5 103/ul Normal 1.2-3.8 [facility] Comment on above: Performed By: #### C BC ####[facility] [address] [place], [place] [address]DrRadha Moralez Lymphocytes/100 WBC (Bld) 22.6 % Normal 20.5-60.0 [facility] Comment on above: Performed By: #### C BC ####[facility] [address] [address]DrRadha Moralez MANUAL DIFF REQ NO Normal [facility] Comment on above: Performed By: #### C BC ####[facility] [address] [address]DrRadha Moralez MCH (RBC) [Entitic mass] 29.3 pg Normal 26.7-34.0 [facility] Comment on above: Performed By: #### C BC ####[facility] [address] [place], [place] [address]DrRadha Moralez MCHC (RBC) [Mass/Vol] 31.1 g/dL Normal 29.9-35.2 [facility] Comment on above: Performed By: #### C BC ####[facility] [address] [place], [place] [address]DrRadha Moralez MCV (RBC) [Entitic vol] 94.4 fL Normal 81.0-99.0 [facility] Comment on above: Performed By: #### C BC ####[facility] [address] [place], [place] [address]DrRadha Moralez MONO # 0.6 103/ul Normal 0.3-0.8 [facility] Comment on above: Performed By: #### C BC ####[facility] [address] [place], [place] [address]DrRadha Moralez Monocytes/100 WBC (Bld) 9.1 % Normal 1.7-12.0 [facility] Comment on above: Performed By: #### C BC ####[facility] [address] [place], [place] [address]DrRadha Moralez NEUT # 4.4 103/ul Normal 1.4-6.5 [facility] Comment on above: Performed By: #### C BC ####[facility] [address] [place], [place] [address]DrRadha Moralez Neutrophils/100 WBC (Bld) 65.7 % Normal 43.0-75.0 [facility] Comment on above: Performed By: #### C BC ####[facility] [address] [address]DrRadha Moralez Platelet mean volume (Bld) [Entitic vol] 9.6 fL Normal 9.5-13.5 [facility] Comment on above: Performed By: #### C BC ####[facility] [address] [place], [place] [address]Dr. Eusebia Moralez PLT 204 103/ul Normal 150-450 [facility] Comment on above: Performed By: #### C BC ####[facility] Y[address] [place], [place] [address]Dr. Eusebia Moralez RBC 4.26 106/ul Normal 4.20-5.40 [facility] Comment on above: Performed By: #### C BC ####[facility] [address] [place], [place] [address]DrRadha Moralez WBC 6.7 103/ul Normal 4.0-11.0 [facility] Comment on above: Performed By: #### C BC ####[facility] [address] [place], [place] [address]DrRadha Moralez PROF CHEM 8 (BAS METB)on Anion gap [Moles/Vol] 11.2 mmol/L Normal [facility] Comment on above: Performed By: #### B MP ####[facility] [address] [place], [place] [address]DrRadha Moralez Calcium [Mass/Vol] 9.2 mg/dL Normal 8.5-10.1 [facility] Comment on above: Performed By: #### B MP ####[facility] [address] [place], [place] [address]DrRadha Moralez Chloride [Moles/Vol] 109 mmol/L Critically high 98-107 [facility] Comment on above: Performed By: #### B MP ####[facility] [address] [place], [place] [address]DrRadha Moralez CO2 [Moles/Vol] 27.6 mmol/L Normal 21.0-32.0 [facility] Comment on above: Performed By: #### B MP ####[facility] [address] [id number]. Eusebia Moralez Creatinine [Mass/Vol] 1.49 mg/dL Critically high 0.55-1.02 [facility] Comment on above: Performed By: #### B MP ####[facility] [address] [address]Dr. Eusebia Kirt EGFR-AF LEBANESE 42 mL/min/1.73m2 Critically low >=60 [facility] Comment on above: Performed By: #### B MP ####[facility] [address] [place], [place] [address]Dr. Lisadenise Kirt EGFR-NON AF LEBANESE 34 mL/min/1.73m2 Critically low >=60 [facility] Comment on above: Performed By: #### B MP ####[facility] [address] [place], [place] [address]Dr. Eusebia Kirt Glucose [Mass/Vol] 89 mg/dL Normal 74-106 [facility] Comment on above: Performed By: #### B MP ####[facility] [address] [place], [place] [address]Dr. Eusebia Moralez Potassium [Moles/Vol] 4.8 mmol/L Normal 3.5-5.1 [facility] Comment on above: Performed By: #### B MP ####[facility] [address] [address]Dr. Lisadenise Moralez Sodium [Moles/Vol] 143 mmol/L Normal 136-145 [facility] Comment on above: Performed By: #### B MP ####[facility] [address] [place], [place] [address]Dr. Eusebia Kirt Urea nitrogen [Mass/Vol] 27.0 mg/dL Critically high 7.0-18.0 [facility] Comment on above: Performed By: #### B MP ####[facility] [address] [place], [place] [address]Dr. Eusebia Moralez Urea nitrogen/Creatinine [Mass ratio] 18.1 mg/mg Normal [facility] Comment on above: Performed By: #### B MP ####[facility] [address] [place], [place] [address]Ik. Yidenise Kirt CT LUNG CANCER SCREENINGon 1 04-27-2021 CT [...] by: AMBAR MOON Date: 2022-02-24 08:15 Normal [facility] PROF CHEM 8 (BAS METB)on Anion gap [Moles/Vol] 9.7 mmol/L Normal [facility] Comment on above: Performed By: #### B MP #### [facility] [address] [address] [address] Eusebia Moralez Calcium [Mass/Vol] 8.8 mg/dL Normal 8.5-10.1 [facility] Comment on above: Performed By: #### B MP #### [facility] [address] [address] [address] Eusebia Moralez Chloride [Moles/Vol] 107 mmol/L Normal 98-107 [facility] Comment on above: Performed By: #### B MP #### [facility] [address] [address] [address] Eusebia Moralez CO2 [Moles/Vol] 29.5 mmol/L Normal 21.0-32.0 [facility] Comment on above: Performed By: #### B MP #### [facility] [address] [address] [address] Eusebia Moralez Creatinine [Mass/Vol] 1.83 mg/dL Critically high 0.55-1.02 [facility] Comment on above: Performed By: #### B MP #### [facility] [address] [address] [address] Eusebia Moralez EGFR-AF LEBANESE 33 mL/min/1.73m2 Critically low >=60 [facility] Comment on above: Performed By: #### B MP #### [facility] [address] [address] [address] Eusebia Moralez EGFR-NON AF LEBANESE 27 mL/min/1.73m2 Critically low >=60 [facility] Comment on above: Performed By: #### B MP #### [facility] [address] [address] [address] Eusebia Moralez Glucose [Mass/Vol] 87 mg/dL Normal 74-106 [facility] Comment on above: Performed By: #### B MP #### [facility] [address] [address] [address] Eusebia Moralez Potassium [Moles/Vol] 5.2 mmol/L Critically high 3.5-5.1 [facility] Comment on above: Performed By: #### B MP #### [facility] [address] [address] [address] Eusebia Moralez Sodium [Moles/Vol] 141 mmol/L Normal 136-145 [facility] Comment on above: Performed By: #### B MP #### [facility] [address] [address] [address] Eusebia Moralez Urea nitrogen [Mass/Vol] 37.0 mg/dL Critically high 7.0-18.0 [facility] Comment on above: Performed By: #### B MP #### [facility] [address] [place], [place] [address] Dr. Eusebia Moralez Urea nitrogen/Creatinine [Mass ratio] 20.2 mg/mg Normal [facility] Comment on above: Performed By: #### B MP #### [facility] [id number] Eusebia Moralez NM STRESS/REST MULTIon 01-23 NM STRESS/REST MULTI Patient: VERO SADLER Exam Date: 01/23/2022 : 1950 Gender:F Ordering : DR DEBBIE ARVIZU . Admission #: [id number] Family : Order #: [id number] CLICK HERE TO VIEW EXAM RADIOLOGY REPORT [...] Harrison MD on 01/26/2022 at 13:45 Normal [facility] ECHOCARDIO M/2D COMPLETEon 1 03-23-2021 ECHOCARDIO M/2D COMPLETE Patient: VERO SADLER Exam Date: 01/21/2022 : 1950 Gender:F Ordering : DR DEBBIE ARVIZU . Admission #: [id number] Family : Order #: [id number] CLICK HERE TO VIEW EXAM ECHOCARDIOGRAM REPORT [...] Tato Salcido M.D. on 01/21/2022 at 09:17 [facility] XR DEXA BONE DENSITYon 01-21 XR [...] by: RAJI HARRISON Date: 2022-01-21 10:03 Normal [facility] BNPon 01-14-2022 Natriuretic peptide B (Bld) [Mass/Vol] 834.0 pg/mL Normal <=900.0 [facility] Comment on above: Performed By: #### T SH, BNP, CMP, T7, LIPID ####[facility] [address] [place], [place] [address]IbDr. Eusebia Moralez CBC AUTO DIFFon 01-14-2022 BASO # 0.0 103/ul Normal 0.0-0.1 [facility] Comment on above: Performed By: #### C BC #### [facility] [address] [address] [address] Eusebia Moralez Basophils/100 WBC (Bld) 0.4 % Normal 0.2-2.0 [facility] Comment on above: Performed By: #### C BC #### [facility] [address] [address] [address] Eusebia Moralez EO # 0.1 103/ul Normal 0.0-0.7 [facility] Comment on above: Performed By: #### C BC #### [facility] [address] [address] [address] Eusebia Moralez Eosinophils/100 WBC (Bld) 1.1 % Normal 0.9-7.0 [facility] Comment on above: Performed By: #### C BC #### [facility] [address] [address] [address] Eusebia Moralez Erythrocyte distribution width (RBC) [Ratio] 15.0 % Normal 11.0-15.0 [facility] Comment on above: Performed By: #### C BC #### [facility] [address] [address] [address] Eusebia Moralez Hematocrit (Bld) [Volume fraction] 39.6 % Normal 36.0-48.0 [facility] Comment on above: Performed By: #### C BC #### [facility] [address] [address] [address] Eusebia Moralez Hemoglobin (Bld) [Mass/Vol] 12.4 g/dL Normal 12.0-16.0 [facility] Comment on above: Performed By: #### C BC #### [facility] [address] [address] [address] Eusebia Moralez IG # 0.02 10e3/ul Normal 0.00-0.03 [facility] Comment on above: Performed By: #### C BC #### [facility] [address] [place] [address] Dr. Eusebia Moralez IG % 0.3 % Normal 0.0-0.5 [facility] Comment on above: Performed By: #### C BC #### [facility] [address] [place] [address] Dr. Eusebia Moralez LYMPH # 1.3 103/ul Normal 1.2-3.8 [facility] Comment on above: Performed By: #### C BC #### [facility] [address] [place] [address] Dr. Eusebia Moralez Lymphocytes/100 WBC (Bld) 17.9 % Critically low 20.5-60.0 [facility] Comment on above: Performed By: #### C BC #### [facility] [address] [place] [address] Dr. Eusebia Moralez MANUAL DIFF REQ NO Normal [facility] Comment on above: Performed By: #### C BC #### [facility] [address] [place] [address] Dr. Eusebia Moralez MCH (RBC) [Entitic mass] 29.8 pg Normal 26.7-34.0 [facility] Comment on above: Performed By: #### C BC #### [facility] [address] [place] [address] Dr. Eusebia Moralez MCHC (RBC) [Mass/Vol] 31.3 g/dL Normal 29.9-35.2 [facility] Comment on above: Performed By: #### C BC #### [facility] [address] [address] [address] Eusebia Moralez MCV (RBC) [Entitic vol] 95.2 fL Normal 81.0-99.0 [facility] Comment on above: Performed By: #### C BC #### [facility] [address] [place] [address] Dr. Eusebia Moralez MONO # 0.5 103/ul Normal 0.3-0.8 [facility] Comment on above: Performed By: #### C BC #### [facility] [address] [place] [address] Dr. Eusebia Moralez Monocytes/100 WBC (Bld) 7.0 % Normal 1.7-12.0 [facility] Comment on above: Performed By: #### C BC #### [facility] [address] [place] [address] Dr. Eusebia Moralez NEUT # 5.2 103/ul Normal 1.4-6.5 [facility] Comment on above: Performed By: #### C BC #### [facility] [address] [place] [address] Dr. Eusebia Moralez Neutrophils/100 WBC (Bld) 73.3 % Normal 43.0-75.0 [facility] Comment on above: Performed By: #### C BC #### [facility] [address] [place] [address] Dr. Eusebia Moralez Platelet mean volume (Bld) [Entitic vol] 9.5 fL Normal 9.5-13.5 [facility] Comment on above: Performed By: #### C BC #### [facility] [address] [place] [address] Dr. Eusebia Moralez PLT 188 103/ul Normal 150-450 [facility] Comment on above: Performed By: #### C BC #### [facility] [address] [place] [address] Dr. Eusebia Moralez RBC 4.16 106/ul Critically low 4.20-5.40 [facility] Comment on above: Performed By: #### C BC #### [facility] [address] [place] [address] Dr. Eusebia Moralez WBC 7.0 103/ul Normal 4.0-11.0 [facility] Comment on above: Performed By: #### C BC #### [facility] [address] [address] [address] Eusebia Moralez FREE THYROXINE INDEX T7on FTI 2.45 Normal 1.30-4.50 [facility] Comment on above: Performed By: #### T SH, BNP, CMP, T7, LIPID ####[facility] [address] [address]Dr. Eusebia Moralez T3U 35.0 % Normal 30.0-39.0 [facility] Comment on above: Performed By: #### T SH, BNP, CMP, T7, LIPID ####[facility] [address] [address]Dr. Eusebia Moralez T4 [Mass/Vol] 7.00 ug/dL Normal 4.80-13.90 [facility] Comment on above: Performed By: #### T SH, BNP, CMP, T7, LIPID ####[facility] [address] [address]Dr. Eusebia Moralez IRONon 01-14-2022 Iron [Mass/Vol] 58.0 ug/dL Normal 50.0-170.0 [facility] Comment on above: Performed By: #### I MONIE #### [facility] [address] [address] [address] Eusebia Moralez LIPID PROFILEon 01-14-2022 CHOL-HDL RATIO NORM SEE BELOW Normal [facility] Comment on above: Result Comment: 3.3 - 4.4 LOW RISK 4.4 - 7.1 AVERAGE RISK 7.1 - 11.0 MODERATE RISK >11.0 HIGH RISK Performed By: #### T SH, BNP, CMP, T7, LIPID ####[facility] [address] [address]Dr. Eusebia Moralez Cholesterol [Mass/Vol] 186 mg/dL Normal <=200 [facility] Comment on above: Performed By: #### T SH, BNP, CMP, T7, LIPID ####[facility] [address] [id number]. Eusebia Moralez Cholesterol in HDL [Mass/Vol] 45 mg/dL Normal 40-60 [facility] Comment on above: Performed By: #### T SH, BNP, CMP, T7, LIPID ####[facility] [address] [place], [place] [address]Ee. Eusebia Moralez Cholesterol in LDL [Mass/Vol] 118.4 mg/dL Normal [facility] Comment on above: Performed By: #### T SH, BNP, CMP, T7, LIPID ####[facility] [address] [place], [place] [address]Cf. Eusebia Moralez Cholesterol.total/C holesterol in HDL [Mass ratio] 4.1 {ratio} Normal [facility] Comment on above: Performed By: #### T SH, BNP, CMP, T7, LIPID ####[facility] [address] [id number]. Eusebia Moralez HDL NORMAL > or = 60 mg/dl - LO W CARDIOVASCULAR RISK <40 mg/dl - HIGH CARDIOVASCULAR RISK Normal [facility] Comment on above: Performed By: #### T SH, BNP, CMP, T7, LIPID ####[facility] [address] [id number]. Eusebia Moralez LDL CALC NORMAL SEE BELOW Normal [facility] Comment on above: Result Comment: <100 mg/dl OPTIMAL 100 - 129 mg/dl NEAR OR ABOVE OPTIMAL 130 - 159 mg/dl BORDERLINE HIGH 160 - 189 mg/dl HIGH >190 mg/dl VERY HIGH Performed By: #### T SH, BNP, CMP, T7, LIPID ####[facility] [address] [id number]. Eusebia Moralez Triglyceride [Mass/Vol] 113 mg/dL Normal <=150 [facility] Comment on above: Performed By: #### T SH, BNP, CMP, T7, LIPID ####[facility] [address] [id number]. Eusebia Moralez VLDL CALC 22.6 mg/dL Normal [facility] Comment on above: Performed By: #### T SH, BNP, CMP, T7, LIPID ####[facility] [address] [address]Dr. Eusebia Moralez PROF 14(COMP METB)on 022 Albumin [Mass/Vol] 3.3 g/dL Critically low 3.4-5.[address] [facility] Comment on above: Performed By: #### T SH, BNP, CMP, T7, LIPID #### [facility] [address] [address] [address] Eusebia Moralez Albumin/Globulin [Mass ratio] 0.9 {ratio} Normal [facility] Comment on above: Performed By: #### T SH, BNP, CMP, T7, LIPID #### [facility] [address] [place] [address] Dr. Eusebia Moralez ALP [Catalytic activity/Vol] 81 U/L Normal 46-116 [facility] Comment on above: Performed By: #### T SH, BNP, CMP, T7, LIPID #### [facility] [address] [place] [address] Dr. Eusebia Moralez ALT [Catalytic activity/Vol] 19 U/L Normal 14-59 [facility] Comment on above: Performed By: #### T SH, BNP, CMP, T7, LIPID #### [facility] [address] [address] [address] Eusebia Moralez Anion gap [Moles/Vol] 12.3 mmol/L Normal [facility] Comment on above: Performed By: #### T SH, BNP, CMP, T7, LIPID #### [facility] [address] [place] [address] Dr. Eusebia Moralez AST [Catalytic activity/Vol] 12 U/L Critically low 15-37 [facility] Comment on above: Performed By: #### T SH, BNP, CMP, T7, LIPID #### [facility] [address] [place] [address] Dr. Eusebia Moralez Bilirubin [Mass/Vol] 0.4 mg/dL Normal 0.2-1.0 [facility] Comment on above: Performed By: #### T SH, BNP, CMP, T7, LIPID #### [facility] [address] [address] [address] Eusebia Moralez Calcium [Mass/Vol] 8.9 mg/dL Normal 8.5-10.1 [facility] Comment on above: Performed By: #### T SH, BNP, CMP, T7, LIPID #### [facility] [address] [place] [address] Dr. Eusebia Moralez Chloride [Moles/Vol] 106 mmol/L Normal 98-107 [facility] Comment on above: Performed By: #### T SH, BNP, CMP, T7, LIPID #### [facility] [address] [place] [address] Dr. Eusebia Moralez CO2 [Moles/Vol] 27.4 mmol/L Normal 21.0-32.0 [facility] Comment on above: Performed By: #### T SH, BNP, CMP, T7, LIPID #### [facility] [address] [place] [address] Dr. Eusebia Moralez Creatinine [Mass/Vol] 1.51 mg/dL Critically high 0.55-1.02 [facility] Comment on above: Performed By: #### T SH, BNP, CMP, T7, LIPID #### [facility] [address] [place] [address] Dr. Eusebia Moralez EGFR-AF LEBANESE 41 mL/min/1.73m2 Critically low >=60 [facility] Comment on above: Performed By: #### T SH, BNP, CMP, T7, LIPID #### [facility] [address] [place] [address] Dr. Eusebia Moralez EGFR-NON AF LEBANESE 34 mL/min/1.73m2 Critically low >=60 [facility] Comment on above: Performed By: #### T SH, BNP, CMP, T7, LIPID #### [facility] [address] [place] [address] Dr. Eusebia Moralez Globulin (S) [Mass/Vol] 3.5 g/dL Normal [facility] Comment on above: Performed By: #### T SH, BNP, CMP, T7, LIPID #### [facility] [address] [place] [address] Dr. Eusebia Moralez Glucose [Mass/Vol] 129 mg/dL Critically high 74-106 [facility] Comment on above: Performed By: #### T SH, BNP, CMP, T7, LIPID #### [facility] [address] [address] [address] Eusebia Moralez Potassium [Moles/Vol] 4.7 mmol/L Normal 3.5-5.1 [facility] Comment on above: Performed By: #### T SH, BNP, CMP, T7, LIPID #### [facility] [address] [address] [address] Eusebia Moralez Protein [Mass/Vol] 6.8 g/dL Normal 6.4-8.2 [facility] Comment on above: Performed By: #### T SH, BNP, CMP, T7, LIPID #### [facility] [address] [address] [address] Eusebia Moralez Sodium [Moles/Vol] 141 mmol/L Normal 136-145 [facility] Comment on above: Performed By: #### T SH, BNP, CMP, T7, LIPID #### [facility] [address] [address] [address] Eusebia Moralez Urea nitrogen [Mass/Vol] 37.0 mg/dL Critically high 7.0-18.0 [facility] Comment on above: Performed By: #### T SH, BNP, CMP, T7, LIPID #### [facility] [address] [address] [address] Eusebia Moralez Urea nitrogen/Creatinine [Mass ratio] 24.5 mg/mg Normal [facility] Comment on above: Performed By: #### T SH, BNP, CMP, T7, LIPID #### [facility] [address] [address] [address] Eusebia Moralez TSHon 01-14-2022 TSH 0.068 uIU/mL Critically low 0.358-3.740 [facility] Comment on above: Performed By: #### T SH, BNP, CMP, T7, LIPID ####[facility] [address] [address]Dr. Eusebia Moralez Covid-19 PCR (CVDTB)on 10-13 SARS-CoV-2 (COVID-19) RNA DEREK+probe Ql (Unsp spec) Not detected Normal NOT DETECTED [facility] Comment on above: Result Comment: This test is not yet approved or cleared by the [place] FDA. When there are no FDA-approved or cleared tests available, and other criteria are met, FDA can make tests available under an emergency access mechanism called an Emergency Use Authorization (EUA). The EUA for this test is supported by the [place] of Health and Human Service's (HHS's) declaration [...] consistent with SARS-CoV-2. Performed By: #### C [facility] ####[facility] [address] [place], [place] [address]Of. Eusebia Moralez MRI LSPINE WO CONon 10-11-19 [...] by: AMBAR MOON Date: 2021-10-10 07:29 Normal [facility] Pulmonary Progress Noteo n 09-13-2020 [facility] Pulmonary Progress Note [facility] Pt Name: VERO SADLER [address] [place] [address] MR#: [id number] [address] [id number] ACCT: [id number] PROGRESS NOTE- Pulmonary : [facility] Date of Service: 09/13/20 Text NAME: VERO SADLER MR#: [id number] DATE OF SERVICE: 09/13/2020 OUTPATIENT PULMONARY PROGRESS [...] disease, severity unknown. We will try to [facility] Pt Name: VERO SADLER [address] [place] [address] MR#: [id number] [place] [address] ACCT: [id number] PROGRESS NOTE- Pulmonary : [facility] [...] postoperative management if needed. TIM TOSCANO MD DI/MODL/[id number] 2 CC: Dr. Rito Guerrero MD [facility] Date and Time Tim Toscano MD Signature on File 09/26/20 1046 Normal [facility] GLYCO HEMOon 08-23-2020 HbA1c (Bld) [Mass fraction] 5.3 % Normal [facility] Comment on above: Result Comment: Milagro vidal Diagnosis HbA1c (%) --------- Diabetic > 6.4 Prediabetes 5.7-6.4 Normal < 5.7 Performed By: #### L 500.63245 #### Test performed at: [address] [address] CBC W/DIFFon 08-22-2020 BASO ABS 0.0 K/uL Normal 0.0-0.2 [facility] Comment on above: Performed By: #### L 200.46668 #### Test performed at: [address] [address] Basophils/100 WBC (Bld) 0.5 % Normal [facility] Comment on above: Performed By: #### L 200.24045 #### Test performed at: [address] [address] EOS ABS 0.1 K/uL Normal 0.0-0.5 [facility] Comment on above: Performed By: #### L 200.97066 #### Test performed at: [address] [address] Eosinophils/100 WBC (Bld) 1.2 % Normal [facility] Comment on above: Performed By: #### L 200.98163 #### Test performed at: [address] [address] Erythrocyte distribution width (RBC) [Ratio] 12.8 % Normal 11.5-14.5 [facility] Comment on above: Performed By: #### L 200.07097 #### Test performed at: [place] [address] Hematocrit (Bld) [Volume fraction] 40.1 % Normal 36.0-48.0 [facility] Comment on above: Performed By: #### L 200.91200 #### Test performed at: [address] [address] Hemoglobin (Bld) [Mass/Vol] 12.4 g/dL Normal 12.0-15.0 [facility] Comment on above: Performed By: #### L 200.11265 #### Test performed at: [place] [id number] IG % 0.3 % Normal [facility] Comment on above: Performed By: #### L 200.45879 #### Test performed at: [place] [id number] IG ABS 0.02 K/uL Normal 0-0.05 [facility] Comment on above: Performed By: #### L 200.47536 #### Test performed at: [address] [address] Lymphocytes (Bld) [#/Vol] 1.3 10*3/uL Normal 1.2-3.5 [facility] Comment on above: Performed By: #### L 200.35749 #### Test performed at: [place] [id number] Lymphocytes/100 WBC (Bld) 16.9 % Normal [facility] Comment on above: Performed By: #### L 200.17499 #### Test performed at: [place] [id number] MCH (RBC) [Entitic mass] 29.0 pg Normal 25.4-34.6 [facility] Comment on above: Performed By: #### L 200.56981 #### Test performed at: [address] [address] MCHC (RBC) [Mass/Vol] 30.9 g/dL Low 31.5-36.5 [facility] Comment on above: Performed By: #### L 200.77751 #### Test performed at: [address] [address] MCV (RBC) [Entitic vol] 93.7 fL Normal 79.0-98.0 [facility] Comment on above: Performed By: #### L 200.39883 #### Test performed at: [place] [id number] MONO ABS 0.8 K/uL Normal 0.0-1.0 [facility] Comment on above: Performed By: #### L 200.50591 #### Test performed at: [place] [address] Monocytes/100 WBC (Bld) 9.7 % Normal [facility] Comment on above: Performed By: #### L 200.35732 #### Test performed at: [place] [address] NEUTROPHIL ABS 5.5 K/uL Normal 1.4-6.6 [facility] Comment on above: Performed By: #### L 200.27859 #### Test performed at: [place] [id number] Neutrophils/100 WBC (Bld) 71.4 % Normal [facility] Comment on above: Performed By: #### L 200.42604 #### Test performed at: [place] [address] NRBC # 0.000 K/uL Normal 0-0.012 [facility] Comment on above: Performed By: #### L 200.81196 #### Test performed at: [place] [address] NRBC % 0.0 /100 WBC Normal 0-0.2 [facility] Comment on above: Performed By: #### L 200.72508 #### Test performed at: [address] [address] Platelet mean volume (Bld) [Entitic vol] 10.1 fL Normal 8.7-12.4 [facility] Comment on above: Performed By: #### L 200.41842 #### Test performed at: [address] [address] Platelets (Bld) [#/Vol] 236 10*3/uL Normal 140-440 [facility] Comment on above: Performed By: #### L 200.91914 #### Test performed at: [address] [address] RBC (Bld) [#/Vol] 4.28 10*6/uL Normal 3.5-5.5 [facility] Comment on above: Performed By: #### L 200.23080 #### Test performed at: [address] [address] WBC (Bld) [#/Vol] 7.7 10*3/uL Normal 3.9-11.0 [facility] Comment on above: Performed By: #### L 200.09446 #### Test performed at: [address] [address] CHEST PA/AP & LATERAL OR 2 V WSon 08-22-2020 CHEST PA/AP & LATERAL OR 2 VWS STUDY: CHEST PA/AP LATERAL OR 2 VWS; 08/22/2020 2:35 pm INDICATION: COPD. COMPARISON: None. ACCESSION NUMBER(S): [id number] ORDERING CLINICIAN: Ovidio Baze FINDINGS: The lungs are clear without pleural effusion. Borderline cardiomegaly. Otherwise unremarkable mediastinum, eron, and pulmonary vasculature. Thoracic degenerative changes are present. IMPRESSION: No active disease in the chest. Normal [facility] COMP META PANELon 08-22-2020 Albumin [Mass/Vol] 3.4 g/dL Normal 3.4-5.0 [facility] Comment on above: Performed By: #### L 500.28705, L500.38246, L500.04385 #### Test performed at: [address] [address] ALK PHOS TOTAL 88 U/L Normal 45-117 [facility] Comment on above: Performed By: #### L 500.69601, L500.56304, L500.21322 #### Test performed at: [address] [address] ALT [Catalytic activity/Vol] 17 U/L Normal 13-61 [facility] Comment on above: Performed By: #### L 500.85247, L500.24621, L500.70968 #### Test performed at: [address] [address] AST [Catalytic activity/Vol] 12 U/L Low 15-37 [facility] Comment on above: Performed By: #### L 500.68527, L500.25464, L500.34254 #### Test performed at: [address] [address] BILI TOTAL 0.5 mg/dL Normal 0.2-1.0 [facility] Comment on above: Performed By: #### L 500.38879, L500.76739, L500.50613 #### Test performed at: [address] [address] Calcium [Mass/Vol] 9.0 mg/dL Normal 8.5-10.1 [facility] Comment on above: Performed By: #### L 500.91169, L500.70710, L500.73918 #### Test performed at: [address] [address] Chloride [Moles/Vol] 107 mmol/L Normal 98-107 [facility] Comment on above: Performed By: #### L 500.03562, L500.57937, L500.02513 #### Test performed at: [address] [address] CO2 [Moles/Vol] 29 mmol/L Normal 21-32 [facility] Comment on above: Performed By: #### L 500.07490, L500.47311, L500.51202 #### Test performed at: [address] [address] Creatinine [Mass/Vol] 1.280 mg/dL High 0.550-1.020 [facility] Comment on above: Performed By: #### L 500.13519, L500.13400, L500.58641 #### Test performed at: [address] [address] Glucose [Mass/Vol] 90 mg/dL Normal 70-99 [facility] Comment on above: Result Comment: Fast ing GLUCOSE reference range has been updated per (ADA) [employer] Diabetes Association's recommendation. 06/07/2018 Performed By: #### L 500.36945, L500.48076, L500.18164 #### Test performed at: [address] [address] Potassium [Moles/Vol] 4.4 mmol/L Normal 3.5-5.1 [facility] Comment on above: Performed By: #### L 500.47277, L500.68423, L500.83388 #### Test performed at: [address] [address] Protein [Mass/Vol] 6.8 g/dL Normal 6.4-8.2 [facility] Comment on above: Performed By: #### L 500.51394, L500.89507, L500.36950 #### Test performed at: [address] [address] Sodium [Moles/Vol] 142 mmol/L Normal 136-145 [facility] Comment on above: Performed By: #### L 500.72664, L500.82936, L500.74547 #### Test performed at: [address] [address] Urea nitrogen [Mass/Vol] 21 mg/dL High 7-18 [facility] Comment on above: Performed By: #### L 500.92168, L500.44263, L500.71012 #### Test performed at: [address] [address] GFR ESTIMATEon 08-22-2020 IF AMER 50 Low > 60 [facility] Comment on above: Result Comment: eGFR (Estimated GFR) Units of measure:mL/min/1.73 meters sq. *CALCULATION REVISED 01/01/2015;IDMS-traceable MDRD equation eGFR is derived from the reexpressed MDRD Study equation using the following parameters: serum creatinine, age, gender and race. An eGFR<60 mL/min/1.73m2 for >3 months is consistent with chronic kidney disease. Refer to KDOQI guidelines for clinical interpretation. Performed By: #### L 500.37236, L500.43329, L500.39504 #### Test performed at: [address] [address] IF non-AFR AMER 41 Low > 60 [facility] Comment on above: Performed By: #### L 500.92508, L500.63664, L500.40399 #### Test performed at: [address] [address] TSH ULTRA SENSon 08-22-2020 TSH ULTRA SENS < 0.005 Low 0.358-3.74 [facility] Comment on above: Performed By: #### L 500.62835, L500.22606, L500.09472 #### Test performed at: [place] [address] LUMB SP COMP W FLEX/EXT 6 VW Son 07-23-2020 LUMB SP COMP W FLEX/EXT 6 VWS STUDY: LUMB SP COMP W FLEX/EXT 6 VWS ; 07/23/2020 9:01 am INDICATION: PAIN. COMPARISON: None. ACCESSION NUMBER(S): [id number] ORDERING CLINICIAN: Sacha Guerrero FINDINGS: No fracture [...] of the lumbar spine without instability. Normal [facility] Vital Signs Date Time Vital Sign Value Performing Clinician Ted guerra 01-06-2024 13:02-0400 Body height 162.56 cm [facility] 01-06-2024 13:02-0400 Body mass index (BMI) [Ratio] 50.5 kg/m2 [facility] 01-06-2024 13:02-0400 Body temperature 96.3 [degF] [facility] 01-06-2024 13:02-0400 Body weight 133.46 kg [facility] 01-06-2024 13:02-0400 Diastolic blood pressure 90 mm[Hg] [facility] 01-06-2024 13:02-0400 Heart rate 81 /min [facility] 01-06-2024 13:02-0400 Respiratory rate 18 /min [facility] 01-06-2024 13:02-0400 SaO2% (BldA) [Mass fraction] 98 % [facility] 01-06-2024 13:02-0400 Systolic blood pressure 179 mm[Hg] [facility] Encounters Encounter Date Encounter Type Care Provider Facility Start: 02-08-2024 End: 02-08-2024 ambulatory JOSEY [facility] Start: 01-26-2024 End: 01-26-2024 ambulatory TATO SALCIDO [facility] Start: 01-06-2024 End: 01-06-2024 ambulatory [facility] Work Phone: Start: 01-06-2024 End: 01-06-2024 Patient encounter procedure [facility] Work Phone: Start: 11-23-2023 End: 11-23-2023 Encounter for other specified special examinations JOSE ANGEL MEEHAN [facility] Start: 11-23-2023 End: 11-23-2023 ambulatory JOSE ANGEL MEEHAN [facility] Start: 10-26-2023 End: 10-26-2023 ambulatory JOSEY [facility] Start: 07-20-2023 End: 07-20-2023 ambulatory OLLIE FELTON [facility] Start: 07-09-2023 ambulatory JOSE ANGEL MEEHAN [facility] Start: 06-30-2023 End: 06-30-2023 ambulatory JOSEY [facility] Start: 05-31-2023 End: 05-31-2023 ambulatory JOSE ANGEL MEEHAN [facility] Start: 03-26-2023 ambulatory JOSE ANGEL MEEHAN [facility] Start: 03-23-2023 End: 03-23-2023 ambulatory [facility] Start: 02-16-2023 End: 02-16-2023 ambulatory NATALIA KUHN [facility] Start: 12-02-2022 ambulatory Desmond ANDERS Facility :[facility] Start: 11-13-2022 ambulatory Desmond ANDERS Facility:[facility] Start: 07-17-2022 End: 07-18-2022 ambulatory JOSEY KWOK Facility:[facility] Start: 07-02-2022 End: 07-03-2022 ambulatory JOSEY KWOK Facility:[facility] Start: 05-25-[address] DEBBIE ARVIZU . Facili ty:[facility] Start: 03-09-2022 End: 03-10-2022 [...] Start: 09-29-2016 End: 09-30-2016 Ambulatory DEFAULT PHYSICIAN Facility:[facility] Plan of Treatment Date Care Activity Detail Author Renal function 1999 panel - Serum or Plasma [facility] Payers Date Payer Category Payer Medicare [id number] 1958 Medicare [id number] 1958 Unknown [id number] 1950 Unknown [id number] 2.16.84 0.1.253032.3.579.2.593 1950 Unknown [id number] 2.16.84 0.1.093124.3.579.2.593 1951 Unknown [id number] 2.16.84 0.1.713894.3.579.2.593 1951 Unknown [id number] 2.16.84 0.1.988055.3.579.2.593 1951 Unknown [id number] 2.16.84 0.1.424403.3.579.2.593 1951 Unknown [id number] 2.16.84 0.1.667197.3.579.2.593 1951 Unknown [id number] 2.16.84 0.1.843684.3.579.2.593 1951 Unknown [id number] 2.16.84 0.1.853714.3.579.2.593 1951 Unknown [id number] 2.16.84 0.1.341808.3.579.2.593 1951 Unknown [id number] 2.16.84 0.1.461640.3.579.2.593 1951 Unknown [id number] 2.16.84 0.1.793107.3.579.2.593 1951 Unknown [id number] 2.16.84 0.1.326703.3.579.2.593 1951 Unknown [id number] 2.16.84 0.1.105586.3.579.2.593 1951 Unknown [id number] 2.16.84 0.1.459150.3.579.2.593 1950 Unknown [id number] 2.16.8 40.1.091772.3.579.2.727 Unknown Unknown [id number] Social History Date Type Detail Facility Start: 01-06-[facility]24 [facility] Start: 1950 Sex Assigned At Female F [facility] Progress note 01-26-2024 Note Date & Type Note Facility 01-26-[address] [facility] Cardiology Clinic Note Chief Complaint: Patient is here today for follow up [facility] ED visit. She was having [...] kidney disease, COPD (chronic obstructive pulmonary disease) ([facility]), Hypertension, Myocardial infarction ([facility]), and Obstructive sleep apnea (10/02/2022). Surgical History [...] 479 g, Rfl (more content not included)... [facility] Progress note 10-26-2023 Note Date & Type Note Facility 10-26-2023 Note [facility] Cardiology Consul t Note Reason for visit: [...] kidney disease COPD (chronic obstructive pulmonary disease) ([facility]) Hypertension Myocardial infarction ([facility]) Obstructive sleep apnea 10/02/2022 SOBIA=17.7 events/hour; Pranav SaO2=76%; Wcqyxh=336.0 lbs; BMI=52.7 kg/m2, Home Sleep Apnea Testing on 09/25/2022 at [facility] PSH: Past Surgical History: Procedure Laterality [...] Allergen Reactions Penicillins (more content not included)... [facility] Progress note 07-20-2023 Note Date & Type Note Facility [...] was recently taken off spironolactone by her applications sales consultant. She is on po bumex daily. For [...] kidney disease COPD (chronic obstructive pulmonary disease) ([facility]) Hypertension Myocardial infarction ([facility]) Obstructive sleep apnea 10/02/2022 SOBIA=17.7 events/hour; Pranav SaO2=76%; Pictzz=577.0 lbs; BMI=52.7 kg/m2, Home Sleep Apnea Testing on 09/25/2022 at [facility] Family History Problem Relation Name Age [...] the morning, afternoon, and at bedtime. omega 0-nhu-xmr-fish oil 350 mg-235 mg- 90 mg-597 mg [...] past 168 hour(s)) (more content not included)... [facility] Progress note 07-09-2023 Note Date & Type Note Facility 07-09-2023 Note [facility] Interventional Pain Management SUBJECTIVE: Subjective 07/09/23 [...] since last visit she has seen cardiology supervisor multifocal lens for VT. patient reports that overall she [...] further. She was able to walk around [employer] which she previously was not able to do without taking long breaks. Reports improved sleep at night. Her back pain is significantly improved laying flat. Patient denies issues with incisions other than some bruising. Steri-Strips are still intact. Denies any fevers chills . Denies any drainage or discharge from incision. Patient reports that she becerra (more content not included)... [facility] Clinical Note 05-31-2023 Note Date & Type Note Facility 05-31-2023 Note Interventional Pain Management Nursing Note / Nurse Post-Call Note S/p SHANTE TFESI S1 Patient reports pain level 0. Pre procedure pain level 8 on 05/31/23. Denies problems or complications. Reminded of next appointment 07/09/23 at 1030. [facility] Progress note 03-26-2023 Note Date & Type Note Facility 03-26-2023 Note [facility] Interventional Pain Management SUBJECTIVE: Subjective 03/26/23 [...] since last visit she has seen cardiology supervisor multifocal lens for VT. patient reports that overall she [...] further. She was able to walk around [employer] which she previously was not able [...] plans to dispo (more content not included)... [facility] Progress note 03-23-2023 Note Date & Type Note Facility 03-23-2023 Note [facility] Cardiology Consul t Note Reason for visit: [...] kidney disease COPD (chronic obstructive pulmonary disease) ([facility]) Hypertension Myocardial infarction ([facility]) Obstructive sleep apnea 10/02/2022 SOBIA=17.7 events/hour; Pranav SaO2=76%; Dtodam=572.0 lbs; BMI=52.7 kg/m2, Home Sleep Apnea Testing on 09/25/2022 at [facility] PSH: Past Surgical History: Procedure Laterality [...] on File Prio (more content not included)... [facility] Progress note 02-16-2023 Note Date & Type Note Facility 02-16-2023 Note [facility] Gastroenterolog y Follow-Up Patient Visit CHIEF COMPLAINT [...] 1 year. Stool studies were submitted to [place], no results available. Ongoing altered BMs, however [...] with abdominal pain, bloating, and diarrhea. Sedation: [facility] Attending Physician: Dr. Dario Calderon Clinical Business Manager: Nancy Prado, Fellow Procedure Details: Informed consent [...] and Crohn's disease in her mother. Sedation: [facility] Attending Physician: Dr. Dario Calderon Findings: Poor [...] small external hemorrhoid (more content not included)... [facility] Evaluation note Note Date & Type Note Facility Evaluation note Diagnosis Onset Date CKD (chronic kidney disease) stage 4, GFR 15-29 ml/min acute Hyperkalemia acute [id number] acute Secondary hyperparathyroidism acute Chronic kidney disease nonea ctive [facility] Work Phone: Summary Purpose Family History [...] disease) stage 4, GFR 15-29 ml/min Hyperkalemia [id number] Secondary hyperparathyroidism Chronic kidney disease Additional Source Comments INFORMATION SOURCE (unrecogn ized section and content) DATE CREATED AUTHOR 09/08/2017 [facility] DATE CREATED AUTHOR AUTHOR'S ORGANIZ ATION 09/27/2020 [facility] DATE CREATED AUTHOR AUTHOR'S ORGANIZ ATION 07/24/2022 [facility] DATE CREATED AUTHOR AUTHOR'S ORGANIZ ATION 11/21/2022 [facility] DATE CREATED AUTHOR AUTHOR'S ORGANIZ ATION 02/11/2024 [facility] Care Teams (unrecognized sec tion and content) Team Status: Active Member Role Status Dates Debbie Arvizu MD Primary Care Provider Active Team Status: [...] BE BASED ON THE PRIMARY CLINICAL RECORDS. [facility] [facility]. provides no warranty or guarantee of the accuracy or completeness of information in this document.
--- NOTE | 2024-02-14 13:32 | P.CN_ITS ---
Consult Note: HPI Data of Consult Patient: new to practice Consult date: 02/14/24 Requesting Physician: Cande Garcia MD Primary Care Provider: Jeremiah Arvizu MD Consult Narrative Reason for consult: low back, bilateral hip pain Narrative: 73yof who presents for evaluation. longstanding history of low back pain, right leg pain. has been under care of outside pain clinic for several years, where she underwent interventions with good success. lumbar imaging reviewed, which is significant for multilevel stenosis, worst at l4-5, as well as multilevel facet arthropathy. continues in a series of provider directed home exercises >6 weeks, without lasting benefit. uses otc pain meds as needed. denies adverse med side effects. cc:: CC: Cande Garcia MD Review of Systems ROS Status of ROS 10 or more systems reviewed and unremark able except as noted in history and below [facility] Medical History (Updated 02/14/24 @ 13:37 by Cande Garcia MD) Stage 3a chronic kidney disease (CKD) ?N18.31 - Chronic kidney disease, stage 3a (ICD-10) Hypertension ?I10 - Essential (primary) hypertension (ICD-10) COPD (chronic obstructive pulmonary disease) ?J44.9 - Chronic obstructive pulmonary disease, unspecified (ICD-10) Pacemaker ?Z95.0 - Presence of cardiac pacemaker (ICD-10) Near syncope ?R55 - Syncope and collapse (ICD-10) Surgical History History of lumbar surgery ?Z98.890 - Other specified postprocedural states (ICD-10) Status post left foot surgery ?Z98.890 - Other specified postprocedural states (ICD-10) H/O: hysterectomy ?Z90.710 - Acquired absence of both cervix and uterus (ICD-10) Family History Daughter Family history of cancer Father Family history of cancer Family history of hypertension Mother Family history of cancer Family history of CHF (congestive heart failure) Family history of COPD (chronic obstructive pulmonary disease) Family history of myocardial infarction Social History Within the past year, how often did you have six or more drinks on one occasion: less than monthly Smoking status: Former smoker Non-prescribed substance use: over the counter (eg: immodium) Non-prescribed substance use details: Quique curtis asa 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 Known occupational exposures/hazards: No Highest level of school completed/degree received: Associate degree: occupational, technical, vocational program Do you want help with school or training: No Are you now , , , , never or living with a partner: In a typical week, how many times do you talk on the telephone with family, friends, or neighbors: 3 or more times per week How often do you get together with friends or relatives: 3 or more times per w curyung How often do you attend anabaptism or alevism services: never Do you belong to any clubs or organizations such as anabaptism groups unions, [employer] or athletic groups, or school groups: yes Total score: 2 Score interpretation: A score of greater than or equal to 2 indicates the lowest level of social isolation. Little interest or pleasure in doing things: not at all Feeling down, depressed, or hopeless: not at all Feel stressed/tense/nervous/anxious/difficulty sleeping: not at all Due to disability, difficulty making decisions: No Do you think of yourself as: straight/heterosexual Gender Identity: female Meds Home Medications and Allergies Home Medications ?Medication ?Instructions ?Recorded ?Confirmed ?Type bumetanide 1 mg tablet 1 mg PO DAILY PRN edema 01/19/23 01/23/24 History carvedilol 25 mg tablet 12.5 mg PO BID 01/19/23 01/23/24 History diclofenac sodium 75 mg 75 mg PO BID 01/19/23 01/23/24 History tablet,delayed release hydralazine 100 mg tablet 100 mg PO TID 01/19/23 01/23/24 History isosorbide mononitrate 30 mg 30 mg PO DAILY 01/19/23 01/23/24 History tablet,extended release 24 hr levothyroxine 100 mcg tablet 100 mcg PO DAILY 01/19/23 01/23/24 History liothyronine 25 mcg tablet 25 mcg PO DAILY 01/19/23 01/23/24 History (Cytomel) lisinopril 10 mg tablet 10 mg PO DAILY 01/19/23 01/23/24 History lovastatin 20 mg tablet 20 mg PO DAILY 01/19/23 01/23/24 History revefenacin 175 mcg/3 mL solution 175 mcg inhalation DAILY 01/19/23 01/23/24 History for nebulization (Yupelri) aspirin 81 mg capsule 81 mg PO DAILY 01/23/24 01/23/24 History hyoscyamine sulfate 0.125 mg mg 01/23/24 History sublingual tablet pantoprazole 40 mg tablet,delayed mg PO 01/23/24 History release tramadol 50 mg tablet mg 01/23/24 History Allergies Allergy/AdvReac Type Severity Reaction Status Date / Time Penicillins Allergy Intermediate Verified 01/19/23 11:43 Exam Narrative Exam Narrative: Psych-alert and oriented x 3. Attentive and appropriate, constitutionally norm al, displays normal mood and affect per situation. There are no obvious deficits in memory, reasoning, or intellect.? Skin-no obvious rashes, bruising, erythema noted to the patient's area of pain.? Extremities- extremities are warm with minimal edema and palpable pulses. Lumbar-tenderness to palpation noted in the lumbar spine and paraspinal musculature. Pain is elicited with flexion, extension, and lateral rotation of the lumbar spine. Range of motion is diminished with these motions. Facet loading maneuvers are positive.? Strength-noted to be unremarkable with the exception of decreased strength rated at 4 out of 5 in bilateral quadriceps femoris, anterior tibialis. Sensory-no notable sensory deficits in the bilateral lower extremities to touch or pinprick in all dermatomal distributions with the exception to decreased sensation to the bilateral L4, 5 dermatomal distribution Coordination remains intact.? Gait remains non-antalgic. Assessment and Plan Assessment and Plan (1) Lumbar stenosis with neurogenic claudication: (2) Lumbar spondylosis: Plan 73yof who presents for evaluation. failed conservative measures, as noted. imaging reviewed, as noted. given symptoms and imaging, discussed that she may benefit from interventional modalities once we obtain outside medical records. she is in agreement with this. meds reviewed, no changes. follow up after procedure.
== END 2024-02-14 12:04 | disposition home or self-care (01) ==
LOC: PM 12:04
PROVIDERS: PCP Family Medicine; Visit Provider Anesthesiology
DX: M48.062 Spinal stenosis, lumbar region with neurogenic claudication (principal); M47.816 Spondylosis without myelopathy or radiculopathy, lumbar region
CPT/HCPCS: G0463

== ENCOUNTER 2024-03-10 14:38 | Outpatient (OUT) | payer MEDICARE, SELFPAY ==
--- OUTSIDE RECORDS SUMMARY | 2024-03-10 14:44 | XMS_ITS | CCD ---
Author Organization [facility] Care Team Providers Care Apiarist Name Role Phone PHYSICIAN, DEFAULT Unavailable Unavailable PHYSICIAN, DEFAULT Unavailable Unavailable DEBBIE ARVIZU Unavailable Unavailable HOY ., DR LEWIS Consulting Unavailable HOY ., DR LEWIS Attending Unavailable HOY ., DR LEWIS Primary Care Unavailable HOY ., DR LEWIS Admitting Unavailable [place], DR RAJI Odonnell Consulting Unavailable HOY ., DR LEWIS Consulting Unavailable HOY ., DR LEWIS Attending Unavailable HOY ., DR LEWIS Primary Care Unavailable HOY ., DR LEWIS Admitting Unavailable HOY ., DR LEWIS Primary Care Unavailable HOY ., DR LEWIS Consulting Unavailable HURTADOJAMESCAPO Admitting Unavailable CAPO HURTADO Attending Unavailable HOY .DR LEWIS Primary Care Unavailable Ambar Moon [...] Admitting Unavailable MISC, DR LOPEZ Attending Unavailable HOY .DR LEWIS Primary Care [...] Unavailable HOY ., DR LEWIS Admitting Unavailable [place], DR RAJI Odonnell Consulting Unavailable REBEKAHHAWY, SRIKANTHAB Attending Unavailable JOSEY KWOK Attending Unavailable JOSEY KWOK Referring Unavailable JOSEY KWOK Attending Unavailable JOSE ANGEL MEEHAN Referring Unavailable JOSE ANGEL MEEHAN Attending Unavailable JOSE ANGEL MEEHAN Referring Unavailable JOSE ANGEL MEEHAN Referring Unavailable JOSE ANGEL MEEHAN Referring Unavailable JOSEY KWOK Referring Unavailable JOSE ANGEL MEEHAN Attending Unavailable NATALIA KUHN Attending Unavaila OLLIE Cary Attending Unavailable JOSE ANGEL MEEHAN Attending Unavailable Cande Garcia MD Attending Unavailable ROSETTA ADAMS Attending Unavail able Debbie Arvizu Referring Unavailable Allergies Allergy Classification Reported Allergen(s) Allergy Type Date of Onset Reaction(s) Facility (5 sources) Penicillins; Translations: [PENICILLINS] Drug allergy (disorder) 5 AOF, Unknown Reaction [facility] Repository (1 source) Adhesive Tape Allergy to substance 4 skin rash [facility] (1 source) Adhesive bandage; Translations: [Adhesive Bandage] Propensity to adverse reactions (disorder) [facility] Repository Medications Current Medications Medication Drug Class(es) Dates Sig (Normalized) Sig (Original) [id number] 200 actuat albuterol 0.09 mg/actuat metered dose [...] Start; Refills: 0; Qty: 1 Box; Provider: Beerman Suleiman H hydrALAZINE hydrochloride 100 mg oral tablet (1 [...] object(s), not elsewhere classified, initial encounter; Translations: [[facility] OT SHRP OB NOT ELSW CLASS INI] Onset: 08-14-2021 Episodic Nonspecific chest pain (1 source) Chest pain, unspecified; Translations: [CHEST PAIN UNSPECIFIED] Onset: 01-29-2022 Episodic Open wounds of extremities (4 sources) Laceration without foreign body, right lower leg, initial encounter; Translations: [LACERATION W/O FB RT LOW LEG INIT] Onset: 08-12-2021 Episodic Other aftercare (1 source) 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; Translations: [OT ELASTIC TAPE INSERTER CURRENT DRUG THERAPY] Onset: 08-14-2021 Episodic Other [...] Range Facility Office Visiton 01-26-2024 Follow-up visit [id number] Brian Sadler se 1950 F Date Provider Department Center 01/26/2024 Jj-TATO SALCIDO CARD [facility] Family History Problem Relation Age of Onset Other Mother Coronary artery disease Mother Other Mother Other Mother Other Father Hypertension Father Hyperlipidemia Father Other Daughter Family Status - Relation Status Age at Mother Father Daughter Level of Service:59444 DE OFFICE/OUTPATIENT ESTABLISHED LOW MDM 20 MIN Normal [facility] MR LUMBAR SPINE WO CONTRASTo n [...] foraminal narrowing. Electronically signed: Arnol Cutler MD. [facility] Comment on above: Order Comment: ORDER IN [employer] NURSNOTEon 11-23-2023 SANDIE Coughlin from [employer] prepped pacemaker. Patient verbalizes no issues with device. Monitor hooked up for continuous patient monitoring throughout the scan. [facility] Office Visiton 10-26-2023 Follow-up visit [id number] Brian Sadler se M 1950 F Date Provider Department Center 10/26/2023 241-JOSEY KWOK LEEANN Reyes Family History Problem Relation Age of Onset Other Mother Coronary artery disease Mother Other Mother Other Mother Other Father Hypertension Father Hyperlipidemia Father Other Daughter Family Status - Relation Status Age at Mother Father Daughter Level of Service:56576 DE OFFICE/OUTPATIENT ESTABLISHED LOW MDM 20 MIN Normal [facility] Office Visiton 07-20-2023 Follow-up visit [id number] Brian Sadler se 1950 F Date Provider Department Center 07/20/2023 [id number] FELTON [facility] NEPHRO Comprehensiv Family History Problem Relation Age of Onset Other Mother Coronary artery disease Mother Other Mother Other Mother Other Father Hypertension Father Hyperlipidemia Father Other Daughter Family Status - Relation Status Age at Mother Father Daughter Level of Service:37382 DE OFFICE/OUTPATIENT ESTABLISHED LOW MDM 20 MIN Reason for Visit and Comments: Follow-up [019306] Normal [facility] CREATININE, URINE, RANDOMon 07-09-2023 Creatinine (U) [Mass/Vol] 142.0 mg/dL Normal 26-299 [facility] Comment on above: Performed By: #### L [id number] #### [facility] [address] [place] [address] Performed By: #### L [id number] ####[facility] [place] [address] Follow-Upon 07-09-2023 Follow-Up [id number] Brian Sadler se 1950 F Date Provider Department Center 07/09/2023 Gladys-JOSE ANGEL MEEHAN MP PAIN Medical [facility] Family History Problem Relation Age of Onset Other Mother Coronary artery disease Mother Other Mother Other Mother Other Father Hypertension Father Hyperlipidemia Father Other Daughter Family Status - Relation Status Age at Mother Father Daughter Level of Service:09792 DE OFFICE/OUTPATIENT ESTABLISHED LOW MDM 20 MIN Reason for Visit and Comments: Follow-up [847159] - F/U S/P TFESI S1 - 30% pain relief Normal [facility] MICROALBUMIN, URINE, RANDOMo n 07-09-2023 Albumin DL <= 20 mg/L (U) [Mass/Vol] 2.3 mg/dL Normal [facility] Comment on above: Performed By: #### L [id number] ####[facility] ([facility])[address] [place] [address] MICROALBUMIN/CREATI NINE (MG/G) IN URINE 16.2 mg/g Creat Normal 0.0-30.0 [facility] Comment on above: Performed By: #### L [id number] ####[facility] ([facility])[address] [place] [address] PROTEIN, URINE, RANDOMon Protein (U) [Mass/Vol] 16.6 mg/dL Normal [facility] Comment on above: Result Comment: Ther e are no established reference values for random urine specimens. Performed By: #### L [id number] #### [facility] [address] [place] [address] RENAL FUNCTION PANELon 07-08 Albumin [Mass/Vol] 3.9 g/dL Normal 3.5-5.7 [facility] Comment on above: Performed By: #### L AB19 ####[facility] ([facility])[address] [place] [address] Anion gap [Moles/Vol] 11 mmol/L Normal 7-20 [facility] Comment on above: Performed By: #### L AB19 ####[facility] ([facility])[address] [place] [address] CALCIUM (MG/DL) CORRECTED FOR ALBUMIN IN SER/PLAS 9.18 mg/dL Normal [facility] Comment on above: Performed By: #### L AB19 ####[facility] ([facility])[address] [place] [address] Calcium [Mass/Vol] 9.1 mg/dL Normal 8.6-10.3 [facility] Comment on above: Performed By: #### L AB19 ####[facility] [place] [address] Chloride [Moles/Vol] 109 mmol/L High 98-107 [facility] Comment on above: Performed By: #### L AB19 ####[facility] ([facility])[address] [place] [address] CO2 [Moles/Vol] 25 mmol/L Normal 21-31 [facility] Comment on above: Performed By: #### L AB19 ####[facility] ([facility])[address] [place] [address] Creatinine [Mass/Vol] 2.24 mg/dL High 0.60-1.20 [facility] Comment on above: Performed By: #### L AB19 ####[facility] ([facility])[address] [place] [address] FASTING? UNKNOWN Normal [facility] Comment on above: Performed By: #### L AB19 ####[facility] ([facility])[address] [place] [address] GLOMERULAR FILTRATION RATE ML/MIN/1.73 SQ M.PREDICTED 22.7 mL/min/1.73m*2 Low >60.0 [facility] Comment on above: Result Comment: [facility]'s estimated glomerular filtration rate (eGFR) will [...] of individuals. Performed By: #### L AB19 ####[facility] ([facility])[address] [place] [address] Glucose [Mass/Vol] 83 mg/dL Normal 70-100 [facility] Comment on above: Performed By: #### L AB19 ####[facility] ([facility])[address] [place] [address] Magnesium [Mass/Vol] 3.7 mg/dL Normal 2.5-5.0 [facility] Comment on above: Performed By: #### L AB19 ####[facility] ([facility])[address] [place] [address] Potassium [Moles/Vol] 5.8 mmol/L High 3.5-5.1 [facility] Comment on above: Performed By: #### L AB19 ####[facility] ([facility])[address] [place] [address] Sodium [Moles/Vol] 139 mmol/L Normal 136-145 [facility] Comment on above: Performed By: #### L AB19 ####[facility] ([facility])[address] [place] [address] Urea nitrogen [Mass/Vol] 46 mg/dL High 7-25 [facility] Comment on above: Performed By: #### L AB19 ####[facility] [facility] [place] [address] UREA NITROGEN/CREATININE (MASS RATIO) IN SER/PLAS 20.5 Normal [facility] Comment on above: Performed By: #### L AB19 ####[facility] ([facility])[address] [place] [address] TSHon 07-09-2023 THYROTROPIN (MIU/L) IN SER/PLAS BY DETECTION LIMIT <= 0.05 MIU/L 0.03 mIU/L Low 0.34-5.60 [facility] Comment on above: Performed By: #### L AB129 #### [facility] [address] [place] [address] Orders Onlyon 06-22-2023 Orders Only [id number] Brian Sadler se 1950 F Date Provider Department Center 06/22/2023 EMMANUEL BECK CCC NEPHRO Comprehensiv Family History Problem Relation Age of Onset Other Mother Coronary artery disease Mother Other Mother Other Mother Other Father Hypertension Father Hyperlipidemia Father Other Daughter Family Status - Relation Status Age at Mother Father Daughter Normal [facility] ANESon 05-31-2023 ANES --- Attestation signed [...] kidney disease COPD (chronic obstructive pulmonary disease) ([facility]) Hypertension Myocardial infarction ([facility]) Obstructive sleep apnea 10/02/2022 SOBIA=17.7 events/hour; Pranav SaO2=76%; Qlqahs=396.0 lbs; BMI=52.7 kg/m2, Home Sleep Apnea Testing on 09/25/2022 at [facility] Principle problems: Patient Active Problem List Diagnosis Date Noted 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 Symptomatic bradycardia 01/01/2023 Other secondary pulmonary hypertension ([facility]) 12/15/2022 KATIE on CPAP 12/15/2022 Nonsustained paroxysmal ventricular tachycardia ([facility]) 11/30/2022 A-fib ([facility]) 04/21/2022 Spinal stenosis of lumbar region with neurogenic claudication 01/30/2022 Lower abdominal pain 01/30/2022 Spondylosis of lumbosacral region without myelopathy or radiculopathy 01/30/2022 Essential hypertension 01/25/2020 Chest pain 07/27/2016 Dyspnea 07/27/2016 Edema 07/27/2016 Fatigue 07/27/2016 Lightheadedness 07/27/2016 Obstructive sleep apnea 10/02/2022 VT (ventricular tachycardia) ([facility]) 04/29/2022 Clinical trial exam 04/23/2022 Allergies: Allergies Allergen Reactions Penicillins Other Yeast infection MATERIAL PLANNER/Current Medications: (Not in a hospital admission) Current [...] prevent worse bloating. 479 g 3 omega 5-etp-zir-fish oil 350 mg-235 mg- 90 mg-597 mg [...] exam B (more content not included)... Normal [facility] HPon 05-31-2023 History Of Present Illness Vero Sadler is a 73 y.o. female presenting with low back pain Past Medical History She has a past medical history of Abnormal ECG, Adverse effect of anesthesia, Arthritis, Chronic kidney disease, COPD (chronic obstructive pulmonary disease) ([facility]), Hypertension, Myocardial infarction ([facility]), and Obstructive sleep apnea (10/02/2022). Surgical History [...] and Crohn's disease in her mother. Sedation: [facility] Attending Physician: Dr. Dario Calderon Rock Mason: Nancy Prado, Fellow Procedure Details Informed consent [...] included. Esophagogastroduod (more content not included)... Normal [facility] --- Attestation signed by Jose Angel Meehan [...] kidney disease, COPD (chronic obstructive pulmonary disease) ([facility]), Hypertension, Myocardial infarction ([facility]), and Obstructive sleep apnea (10/02/2022). Surgical History [...] Sedation: MAC Attending Physician: Dr. Dario Calderon Rock Mason: Nancy Prado, Fellow Procedure Details Informed consent [...] prep. (more content not included)... [facility] Prep for Procedureon 024 Prep for Procedure [id number] Brian Sadler se 1950 F Date Provider Department Center 05/24/2023 POONAM SINGLETON MP PROC Medical Pavi Family History Problem Relation Age of Onset Other Mother Coronary artery disease Mother Other Mother Other Mother Other Father Hypertension Father Hyperlipidemia Father Other Daughter Family Status - Relation Status Age at Mother Father Daughter [facility] 36on 04-22-2023 36 Patient contacted [...] sometimes takes 48 -72 hours for the doctors/CIAIO COUNTER MOLDER's to return messages. Apologized that we were not able to meet her needs and voiced that we understand her feelings and decision not to utilized services at this time [facility] 36on 04-19-2023 36 Vero has called, stating she is not feeling well, in Re: recurrent diarrhea /not feeling well and she mention a breathing test they may not work, she is looking for answers to why she is not feeling well in a lot of pain, please advise with patient [phone] ???This phone message was created by the ambulatory float staff. If you need technical support assistant follow up regarding this patient, please make your appropriate clinic staff member aware, Thank you??? [facility] Telephoneon 04-19-2023 Telephone [id number] Brian Sadler se 1950 F Date Provider Department Center 04/19/2023 [id number] AGUIRRE GI Medical [facility] Family History Problem Relation Age of Onset Other Mother Coronary artery disease Mother Other Mother Other Mother Other Father Hypertension Father Hyperlipidemia Father Other Daughter Family Status - Relation Status Age at Mother Father Daughter [facility] Prep for Procedureon 024 Prep for Procedure [id number] Brian Sadler se 1950 Provider Department Center 04/12/2023 161Tasia-LEENA MASON MP PROC Medical Pavi Family History Problem Relation Age of Onset Other Mother Coronary artery disease Mother Other Mother Other Mother Other Father Hypertension Father Hyperlipidemia Father Other Daughter Family Status - Relation Status Age at Mother Father Daughter Normal [facility] Prep for Procedureon 024 Prep for Procedure [id number] Brian Sadler se 1950 [facility] Department [place] 03/31/2023 JOSE ANGEL LEE MP PROC Medical Pavi Family History Problem Relation Age of Onset Other Mother Coronary artery disease Mother Other Mother Other Mother Other Father Hypertension Father Hyperlipidemia Father Other Daughter Family Status - Relation Status Age at Mother Father Daughter Normal [facility] Follow-Upon 03-26-2023 Follow-Up [id number] Brian Sadler se 1950 [facility] Department [place] 03/26/2023 JOSE ANGEL LEE MP PAIN Medical Pavi Family History Problem Relation Age of Onset Other Mother Coronary artery disease Mother Other Mother Other Mother Other Father Hypertension Father Hyperlipidemia Father Other Daughter Family Status - Relation Status Age at Mother Father Daughter Level of Service:77904 DE OFFICE/OUTPATIENT ESTABLISHED LOW MDM 20 MIN () Reason for Visit and Comments: Follow-up [432778] - Physical Therapy only did a couple days of PT because of COPD and chest hurting Normal [facility] Office Visiton 03-23-2023 Follow-up visit [id number] Brian Sadler se 1950 Provider Department [place] 03/23/2023 241-JOSEY KWOK LEEANN Ledesma [facility] Family History Problem Relation Age of Onset Other Mother Coronary artery disease Mother Other Mother Other Mother Other Father Hypertension Father Hyperlipidemia Father Other Daughter Family Status - Relation Status Age at Mother Father Daughter Level of Service:77042 DE OFFICE/OUTPATIENT ESTABLISHED LOW MDM 20 MIN Normal [facility] Letter (Out)on 02-23-2023 Letter (Out) [id number] Brian Sadler se 1950 Provider Department [place] 02/23/2023 [id number] PRADO MP GI Medical Pavi Family History Problem Relation Age of Onset Other Mother Coronary artery disease Mother Other Mother Other Mother Other Father Hypertension Father Hyperlipidemia Father Other Daughter Family Status - Relation Status Age at Mother Father Daughter [facility] 36on 02-22-2023 36 Spoke with patient aniceto rodgers voiced understanding not to complete the MRI at this time due to kidneys. Advised that the patient contact the Endoscopy department to review questions regarding HBT. [facility] 36 ----- Message from Natalia [...] do the MRE. Thank you. [facility] Orders Onlyon 2023 Orders Only [id number] Brian Sadler se 1950 [facility] Provider Department [place] 2023 [id number] KUHN*MP GI Medical Pavi Family History Problem Relation Age of Onset Other Mother Coronary artery disease Mother Other Mother Other Mother Other Father Hypertension Father Hyperlipidemia Father Other Daughter Family Status - Relation Status Age at Mother Father Daughter [facility] 3602-17-2023 36 Instruction sheet fo r HBT and US order mailed to the patient. I scanned the stool study results into patients chart and sent them into Tierra's basket. [facility] 36 ----- Message from Natalia Kuhn NP sent at 02/16/2023 7:59 PM EST ----- Gabe Esteves, Do you mind helping mailing her a Hydrogen Breath Test instruction packet and Gall bladder US orders to her house. Do you mind also calling [facility] and requesting all her stool study results from dec or jan. They never faxed us any results. They are important so I can further help her. Thank you so much. I really appreciate your help with this. [facility] Orders Onlyon 02-17-2023 Orders Only [id number] Brian Sadler se 1950 [facility] Provider Department [place] 02/17/2023 [id number], HISTORICAL MP GI Medical Pavi Family History Problem Relation Age of Onset Other Mother Coronary artery disease Mother Other Mother Other Mother Other Father Hypertension Father Hyperlipidemia Father Other Daughter Family Status - Relation Status Age at Mother Father Daughter Normal [facility] Telemedicineon 02-16-2023 Telemedicine [id number] Brian Sadler se 1950 F Date Provider Department [place] 02/16/2023 [id number] KUHN*MP GI Medical [facility]avi Family History Problem Relation Age of Onset Other Mother Coronary artery disease Mother Other Mother Other Mother Other Father Hypertension Father Hyperlipidemia Father Other Daughter Family Status - Relation Status Age at Mother Father Daughter Level of Service:78796 DE OFFICE/OUTPATIENT ESTABLISHED HIGH MDM 40-54 MIN Normal [facility] CBC AUTO DIFFon 07-17-2022 BASO # 0.0 103/ul Normal 0.0-0.1 [facility] Comment on above: Performed By: #### C BC #### [facility] [address] [place] [address] Dr. Eusebia Moralez Basophils/100 WBC (Bld) 0.6 % Normal 0.2-2.0 [facility] Comment on above: Performed By: #### C BC #### [facility] [address] [address] [address] Eusebia Moralez EO # 0.2 103/ul Normal 0.0-0.7 [facility] Comment on above: Performed By: #### C BC #### [facility] [address] [address] [address] Eusebia Moralez Eosinophils/100 WBC (Bld) 2.2 % Normal 0.9-7.0 [facility] Comment on above: Performed By: #### C BC #### [facility] [address] [address] [address] Eusebia Moralez Erythrocyte distribution width (RBC) [Ratio] 13.0 % Normal 11.0-15.0 [facility] Comment on above: Performed By: #### C BC #### [facility] [address] [place] [address] Dr. Eusebia Moralez Hematocrit (Bld) [Volume fraction] 40.5 % Normal 36.0-48.0 [facility] Comment on above: Performed By: #### C BC #### [facility] [address] [place] [address] Dr. Eusebia Moralez Hemoglobin (Bld) [Mass/Vol] 12.7 g/dL Normal 12.0-16.0 [facility] Comment on above: Performed By: #### C BC #### [facility] [address] [place] [address] Dr. Eusebia Moralez IG # 0.02 10e3/ul Normal 0.00-0.03 [facility] Comment on above: Performed By: #### C BC #### [facility] [address] [place] [address] Dr. Eusebia Moralez IG % 0.3 % Normal 0.0-0.5 [facility] Comment on above: Performed By: #### C BC #### [facility] [address] [place] [address] Dr. Eusebia Moralez LYMPH # 1.4 103/ul Normal 1.2-3.8 [facility] Comment on above: Performed By: #### C BC #### [facility] [address] [place] [address] Dr. Eusebia Moralez Lymphocytes/100 WBC (Bld) 19.9 % Critically low 20.5-60.0 [facility] Comment on above: Performed By: #### C BC #### [facility] [address] [place] [address] Dr. Eusebia Moralez MANUAL DIFF REQ NO Normal [facility] Comment on above: Performed By: #### C BC #### [facility] [address] [place] [address] Dr. Eusebia Moralez MCH (RBC) [Entitic mass] 29.1 pg Normal 26.7-34.0 [facility] Comment on above: Performed By: #### C BC #### [facility] [address] [place] [address] Dr. Eusebia Moralez MCHC (RBC) [Mass/Vol] 31.4 g/dL Normal 29.9-35.2 [facility] Comment on above: Performed By: #### C BC #### [facility] [address] [address] [address] Eusebia Moralez MCV (RBC) [Entitic vol] 92.9 fL Normal 81.0-99.0 [facility] Comment on above: Performed By: #### C BC #### [facility] [address] [address] [address] Eusebia Moralez MONO # 0.7 103/ul Normal 0.3-0.8 [facility] Comment on above: Performed By: #### C BC #### [facility] [address] [address] [address] Eusebia Moralez Monocytes/100 WBC (Bld) 9.4 % Normal 1.7-12.0 [facility] Comment on above: Performed By: #### C BC #### [facility] [address] [place] [address] Dr. Eusebia Moralez NEUT # 4.7 103/ul Normal 1.4-6.5 [facility] Comment on above: Performed By: #### C BC #### [facility] [address] [place] [address] Dr. Eusebia Moralez Neutrophils/100 WBC (Bld) 67.6 % Normal 43.0-75.0 [facility] Comment on above: Performed By: #### C BC #### [facility] [address] [address] [address] Eusebia Moralez Platelet mean volume (Bld) [Entitic vol] 9.9 fL Normal 9.5-13.5 [facility] Comment on above: Performed By: #### C BC #### [facility] [address] [address] [address] Eusebia Moralez PLT 218 103/ul Normal 150-450 [facility] Comment on above: Performed By: #### C BC #### [facility] [address] [address] [address] Eusebia Moralez RBC 4.36 106/ul Normal 4.20-5.40 [facility] Comment on above: Performed By: #### C BC #### [facility] [address] [address] [address] Eusebia Moralez WBC 6.9 103/ul Normal 4.0-11.0 [facility] Comment on above: Performed By: #### C BC #### [facility] [address] [address] [address] Eusebia Moralez PROF CHEM 8 (BAS METB)on Anion gap [Moles/Vol] 9.0 mmol/L Normal [facility] Comment on above: Performed By: #### B MP #### [facility] [address] [address] [address] Eusebia Moralez Calcium [Mass/Vol] 9.2 mg/dL Normal 8.5-10.1 [facility] Comment on above: Performed By: #### B MP #### [facility] [address] [place] [address] Dr. Eusebia Moralez Chloride [Moles/Vol] 103 mmol/L Normal 98-107 [facility] Comment on above: Performed By: #### B MP #### [facility] [address] [address] [address] Eusebia Moralez CO2 [Moles/Vol] 32.9 mmol/L Critically high 21.0-32.0 [facility] Comment on above: Performed By: #### B MP #### [facility] [address] [place] [address] Dr. Eusebia Moralez Creatinine [Mass/Vol] 1.74 mg/dL Critically high 0.55-1.02 [facility] Comment on above: Performed By: #### B MP #### [facility] [address] [place] [address] Dr. Eusebia Moralez EGFR-AF SENEGALESE 35 mL/min/1.73m2 Critically low >=60 [facility] Comment on above: Performed By: #### B MP #### [facility] [address] [address] [address] Eusebia Moralez EGFR-NON AF SENEGALESE 29 mL/min/1.73m2 Critically low >=60 [facility] Comment on above: Performed By: #### B MP #### [facility] [address] [address] [address] Eusebia Moralez Glucose [Mass/Vol] 101 mg/dL Normal 74-106 [facility] Comment on above: Performed By: #### B MP #### [facility] [address] [address] [address] Eusebia Moralez Potassium [Moles/Vol] 3.9 mmol/L Normal 3.5-5.1 [facility] Comment on above: Performed By: #### B MP #### [facility] [address] [address] [address] Eusebia Moralez Sodium [Moles/Vol] 141 mmol/L Normal 136-145 [facility] Comment on above: Performed By: #### B MP #### [facility] [address] [address] [address] Eusebia Moralez Urea nitrogen [Mass/Vol] 34.0 mg/dL Critically high 7.0-18.0 [facility] Comment on above: Performed By: #### B MP #### [facility] [address] [address] [address] Eusebia Moralez Urea nitrogen/Creatinine [Mass ratio] 19.5 mg/mg Normal [facility] Comment on above: Performed By: #### B MP #### [facility] [address] [address] [address] Eusebia Moralez CBC AUTO DIFFon 07-02-2022 BASO # 0.1 103/ul Normal 0.0-0.1 [facility] Comment on above: Performed By: #### C BC ####[facility] [address] [address]DrRadha Moralez Basophils/100 WBC (Bld) 0.7 % Normal 0.2-2.0 [facility] Comment on above: Performed By: #### C BC ####[facility] [address] [id number] Moralez EO # 0.1 103/ul Normal 0.0-0.7 [facility] Comment on above: Performed By: #### C BC ####[facility] [address] [address]Dr. Eusebia Moralez Eosinophils/100 WBC (Bld) 1.8 % Normal 0.9-7.0 [facility] Comment on above: Performed By: #### C BC ####[facility] [address] [address]Dr. Eusebia Moralez Erythrocyte distribution width (RBC) [Ratio] 13.1 % Normal 11.0-15.0 [facility] Comment on above: Performed By: #### C BC ####[facility] [address] [place], [place] [address]Dr. Eusebia Moralez Hematocrit (Bld) [Volume fraction] 40.2 % Normal 36.0-48.0 [facility] Comment on above: Performed By: #### C BC ####[facility] [address] [place], [place] [address]Dr. Eusebia Moralez Hemoglobin (Bld) [Mass/Vol] 12.5 g/dL Normal 12.0-16.0 [facility] Comment on above: Performed By: #### C BC ####[facility] [address] [place], [place] [address]Dr. Eusebia Moralez IG # 0.01 10e3/ul Normal 0.00-0.03 [facility] Comment on above: Performed By: #### C BC ####[facility] [address] [place], [place] [address]Dr. Eusebia Moralez IG % 0.1 % Normal 0.0-0.5 [facility] Comment on above: Performed By: #### C BC ####[facility] [address] [place], [place] [address]Dr. Eusebia Moralez LYMPH # 1.5 103/ul Normal 1.2-3.8 [facility] Comment on above: Performed By: #### C BC ####[facility] [address] [place], [place] [address]Dr. Eusebia Moralez Lymphocytes/100 WBC (Bld) 22.6 % Normal 20.5-60.0 [facility] Comment on above: Performed By: #### C BC ####[facility] [address] [address]Dr. Eusebia Moralez MANUAL DIFF REQ NO Normal [facility] Comment on above: Performed By: #### C BC ####[facility] [address] [address]Dr. Eusebia Moralez MCH (RBC) [Entitic mass] 29.3 pg Normal 26.7-34.0 [facility] Comment on above: Performed By: #### C BC ####[facility] [address] [place], [place] [id number]. Eusebia Moralez MCHC (RBC) [Mass/Vol] 31.1 g/dL Normal 29.9-35.2 [facility] Comment on above: Performed By: #### C BC ####[facility] [address] [place], [place] [address]Dr. Eusebia Kirt MCV (RBC) [Entitic vol] 94.4 fL Normal 81.0-99.0 [facility] Comment on above: Performed By: #### C BC ####[facility] [address] [place], [place] [address]Dr. Eusebia Moralez MONO # 0.6 103/ul Normal 0.3-0.8 [facility] Comment on above: Performed By: #### C BC ####[facility] [address] [address]Dr. Lisadenise Moralez Monocytes/100 WBC (Bld) 9.1 % Normal 1.7-12.0 [facility] Comment on above: Performed By: #### C BC ####[facility] [address] [place], [place] [address]Dr. Eusebia Moralez NEUT # 4.4 103/ul Normal 1.4-6.5 [facility] Comment on above: Performed By: #### C BC ####[facility] [address] [place], [place] [address]Dr. Eusebia Moralez Neutrophils/100 WBC (Bld) 65.7 % Normal 43.0-75.0 [facility] Comment on above: Performed By: #### C BC ####[facility] [address] [address]Dr. Eusebia Moralez Platelet mean volume (Bld) [Entitic vol] 9.6 fL Normal 9.5-13.5 [facility] Comment on above: Performed By: #### C BC ####[facility] [address] [address]Dr. Eusebia Moralez PLT 204 103/ul Normal 150-450 [facility] Comment on above: Performed By: #### C BC ####[facility] [address] [place], [place] [address]Dr. Eusebia Moralez RBC 4.26 106/ul Normal 4.20-5.40 [facility] Comment on above: Performed By: #### C BC ####[facility] [address] [place], [place] [address]Dr. Eusebia Moralez WBC 6.7 103/ul Normal 4.0-11.0 [facility] Comment on above: Performed By: #### C BC ####[facility] [address]ut[address] [place], [place] [address]Dr. Eusebia Moralez PROF CHEM 8 (BAS METB)on Anion gap [Moles/Vol] 11.2 mmol/L Normal [facility] Comment on above: Performed By: #### B MP ####[facility] [address] [place], [place] [address]Dr. Eusebia Moralez Calcium [Mass/Vol] 9.2 mg/dL Normal 8.5-10.1 [facility] Comment on above: Performed By: #### B MP ####[facility] [address] [place], [place] [address]Dr. Eusebia Moralez Chloride [Moles/Vol] 109 mmol/L Critically high 98-107 [facility] Comment on above: Performed By: #### B MP ####[facility] [address] [place], [place] [address]Dr. Eusebia Moralez CO2 [Moles/Vol] 27.6 mmol/L Normal 21.0-32.0 [facility] Comment on above: Performed By: #### B MP ####[facility] [address] [address]Dr. Eusebia Moralez Creatinine [Mass/Vol] 1.49 mg/dL Critically high 0.55-1.02 [facility] Comment on above: Performed By: #### B MP ####[facility] [address] [address]Dr. Eusebia Moralez EGFR-AF SENEGALESE 42 mL/min/1.73m2 Critically low >=60 [facility] Comment on above: Performed By: #### B MP ####[facility] [address] [address]Dr. Eusebia Moralez EGFR-NON AF SENEGALESE 34 mL/min/1.73m2 Critically low >=60 [facility] Comment on above: Performed By: #### B MP ####[facility] [address] [place], [place] [address]Dr. Eusebia Moralez Glucose [Mass/Vol] 89 mg/dL Normal 74-106 [facility] Comment on above: Performed By: #### B MP ####[facility] [address] [place], [place] [address]Dr. Eusebia Moralez Potassium [Moles/Vol] 4.8 mmol/L Normal 3.5-5.1 [facility] Comment on above: Performed By: #### B MP ####[facility] [address] [place], [place] [address]Dr. Eusebia Kirt Sodium [Moles/Vol] 143 mmol/L Normal 136-145 [facility] Comment on above: Performed By: #### B MP ####[facility] [address] [address]Dr. Eusebia Moralez Urea nitrogen [Mass/Vol] 27.0 mg/dL Critically high 7.0-18.0 [facility] Comment on above: Performed By: #### B MP ####[facility] [address] [address]Dr. Eusebia Moralez Urea nitrogen/Creatinine [Mass ratio] 18.1 mg/mg Normal [facility] Comment on above: Performed By: #### B MP ####[facility] [address] [place], [place] [address]KzDr. Eusebia Moralez CT LUNG CANCER SCREENINGon 1 [...] AMBAR MOON Date: 2022-02-24 08:15 Normal [facility] PROF CHEM 8 (BAS METB)on Anion gap [Moles/Vol] 9.7 mmol/L Normal [facility] Comment on above: Performed By: #### B MP #### [facility] [address] [place], [place] [address] Dr. Eusebia Moralez Calcium [Mass/Vol] 8.8 mg/dL Normal 8.5-10.1 [facility] Comment on above: Performed By: #### B MP #### [facility] [address] [place], [place] [address] Dr. Eusebia Moralez Chloride [Moles/Vol] 107 mmol/L Normal 98-107 [facility] Comment on above: Performed By: #### B MP #### [facility] [address] [address] [address] Eusebia Moralez CO2 [Moles/Vol] 29.5 mmol/L Normal 21.0-32.0 [facility] Comment on above: Performed By: #### B MP #### [facility] [address] [address] [address] Eusebia Moralez Creatinine [Mass/Vol] 1.83 mg/dL Critically high 0.55-1.02 [facility] Comment on above: Performed By: #### B MP #### [facility] [address] [address] [address] Eusebia Moralez EGFR-AF SENEGALESE 33 mL/min/1.73m2 Critically low >=60 [facility] Comment on above: Performed By: #### B MP #### [facility] [address] [address] [address] Eusebia Moralez EGFR-NON AF SENEGALESE 27 mL/min/1.73m2 Critically low >=60 [facility] Comment on above: Performed By: #### B MP #### [facility] [address] [address] [address] Eusebia Moralez Glucose [Mass/Vol] 87 mg/dL Normal 74-106 [facility] Comment on above: Performed By: #### B MP #### [facility] [address] [address] [address] Eusebia Moralez Potassium [Moles/Vol] 5.2 mmol/L Critically high 3.5-5.1 [facility] Comment on above: Performed By: #### B MP #### [facility] [address] [address] [address] Eusebia Moralez Sodium [Moles/Vol] 141 mmol/L Normal 136-145 [facility] Comment on above: Performed By: #### B MP #### [facility] [address] [address] [address] Eusebia Moralez Urea nitrogen [Mass/Vol] 37.0 mg/dL Critically high 7.0-18.0 [facility] Comment on above: Performed By: #### B MP #### [facility] [address] [place], [place] [address] Dr. Eusebia Moralez Urea nitrogen/Creatinine [Mass ratio] 20.2 mg/mg Normal [facility] Comment on above: Performed By: #### B MP #### [facility] [address] [place], [place] [address] Dr. Eusebia Moralez VA STRESS/REST MULTIon 01-23 NM STRESS/REST MULTI Patient: VERO SADLER Exam Date: 01/23/2022 : 1950 Gender:F Ordering : DR DEBBIE ARVIZU . Admission #: [id number] Family : Order #: [id number] CLICK HERE TO VIEW EXAM RADIOLOGY REPORT [...] Harrison MD on 01/26/2022 at 13:45 Normal [facility] ECHOCARDIO M/2D COMPLETEon 1 03-23-2021 ECHOCARDIO M/2D COMPLETE Patient: VERO SADLER Exam Date: 01/21/2022 : 1950 Gender:F Ordering : DR DEBBIE ARVIZU . Admission #: [id number] Family : Order #: [id number] CLICK HERE TO VIEW EXAM ECHOCARDIOGRAM REPORT [...] Tato Salcido M.D. on 01/21/2022 at 09:17 [facility] XR DEXA BONE DENSITYon 01-21 [...] RAJI HARRISON Date: 2022-01-21 10:03 Normal [facility] BNPon 01-14-2022 Natriuretic peptide B (Bld) [Mass/Vol] 834.0 pg/mL Normal <=900.0 [facility] Comment on above: Performed By: #### T SH, BNP, CMP, T7, LIPID ####[facility] [address] [address]Dr. Eusebia Moralez CBC AUTO DIFFon 01-14-2022 BASO # 0.0 103/ul Normal 0.0-0.1 [facility] Comment on above: Performed By: #### C BC #### [facility] [address] [place] [address] Dr. Eusebia Moralez Basophils/100 WBC (Bld) 0.4 % Normal 0.2-2.0 [facility] Comment on above: Performed By: #### C BC #### [facility] [address] [place] [address] Dr. Eusebia Moralez EO # 0.1 103/ul Normal 0.0-0.7 [facility] Comment on above: Performed By: #### C BC #### [facility] [address] [place] [address] Dr. Eusebia Moralez Eosinophils/100 WBC (Bld) 1.1 % Normal 0.9-7.0 [facility] Comment on above: Performed By: #### C BC #### [facility] [address] [place] [address] Dr. Eusebia Moralez Erythrocyte distribution width (RBC) [Ratio] 15.0 % Normal 11.0-15.0 [facility] Comment on above: Performed By: #### C BC #### [facility] [address] [place] [address] Dr. Eusebia Moralez Hematocrit (Bld) [Volume fraction] 39.6 % Normal 36.0-48.0 [facility] Comment on above: Performed By: #### C BC #### [facility] [address] [place] [address] Dr. Eusebia Moralez Hemoglobin (Bld) [Mass/Vol] 12.4 g/dL Normal 12.0-16.0 [facility] Comment on above: Performed By: #### C BC #### [facility] [address] [place] [address] Dr. Eusebia Moralez IG # 0.02 10e3/ul Normal 0.00-0.03 [facility] Comment on above: Performed By: #### C BC #### [facility] [address] [place] [address] Dr. Eusebia Moralez IG % 0.3 % Normal 0.0-0.5 [facility] Comment on above: Performed By: #### C BC #### [facility] [address] [place] [address] Dr. Eusebia Moralez LYMPH # 1.3 103/ul Normal 1.2-3.8 [facility] Comment on above: Performed By: #### C BC #### [facility] [address] [place] [address] Dr. Eusebia Moralez Lymphocytes/100 WBC (Bld) 17.9 % Critically low 20.5-60.0 [facility] Comment on above: Performed By: #### C BC #### [facility] [address] [place] [address] Dr. Eusebia Moralez MANUAL DIFF REQ NO Normal [facility] Comment on above: Performed By: #### C BC #### [facility] [address] [place] [address] Dr. Eusebia Moralez MCH (RBC) [Entitic mass] 29.8 pg Normal 26.7-34.0 [facility] Comment on above: Performed By: #### C BC #### [facility] [address] [place] [address] Dr. Eusebia Moralez MCHC (RBC) [Mass/Vol] 31.3 g/dL Normal 29.9-35.2 [facility] Comment on above: Performed By: #### C BC #### [facility] [address] [place] [address] Dr. Eusebia Moralez MCV (RBC) [Entitic vol] 95.2 fL Normal 81.0-99.0 [facility] Comment on above: Performed By: #### C BC #### [facility] [address] [address] [address] Eusebia Moralez MONO # 0.5 103/ul Normal 0.3-0.8 [facility] Comment on above: Performed By: #### C BC #### [facility] [address] [address] [address] Eusebia Moralez Monocytes/100 WBC (Bld) 7.0 % Normal 1.7-12.0 [facility] Comment on above: Performed By: #### C BC #### [facility] [address] [address] [address] Eusebia Moralez NEUT # 5.2 103/ul Normal 1.4-6.5 [facility] Comment on above: Performed By: #### C BC #### [facility] [address] [place] [address] Dr. Eusebia Moralez Neutrophils/100 WBC (Bld) 73.3 % Normal 43.0-75.0 [facility] Comment on above: Performed By: #### C BC #### [facility] [address] [address] [address] Eusebia Moralez Platelet mean volume (Bld) [Entitic vol] 9.5 fL Normal 9.5-13.5 [facility] Comment on above: Performed By: #### C BC #### [facility] [address] [place] [address] Dr. Eusebia Moralez PLT 188 103/ul Normal 150-450 [facility] Comment on above: Performed By: #### C BC #### [facility] [address] [place] [address] Dr. Eusebia Moralez RBC 4.16 106/ul Critically low 4.20-5.40 [facility] Comment on above: Performed By: #### C BC #### [facility] [address] [address] [address] Eusebia Moralez WBC 7.0 103/ul Normal 4.0-11.0 [facility] Comment on above: Performed By: #### C BC #### [facility] [address] [place], [place] [address] Dr. Eusebia Moralez FREE THYROXINE INDEX T7on FTI 2.45 Normal 1.30-4.50 [facility] Comment on above: Performed By: #### T SH, BNP, CMP, T7, LIPID ####[facility] [address] [address]DrRadha Moralez T3U 35.0 % Normal 30.0-39.0 [facility] Comment on above: Performed By: #### T SH, BNP, CMP, T7, LIPID ####[facility] [address] [address]DrRadha Moralez T4 [Mass/Vol] 7.00 ug/dL Normal 4.80-13.90 [facility] Comment on above: Performed By: #### T SH, BNP, CMP, T7, LIPID ####[facility] [address] [address]DrRadha Moralez IRONon 01-14-2022 Iron [Mass/Vol] 58.0 ug/dL Normal 50.0-170.0 [facility] Comment on above: Performed By: #### I MONIE #### [facility] [address] [address] [address] Eusebia Moralez LIPID PROFILEon 01-14-2022 CHOL-HDL RATIO NORM SEE BELOW Normal [facility] Comment on above: Result Comment: 3.3 - 4.4 LOW RISK 4.4 - 7.1 AVERAGE RISK 7.1 - 11.0 MODERATE RISK >11.0 HIGH RISK Performed By: #### T SH, BNP, CMP, T7, LIPID ####[facility] [address] [address]DrRadha Moralez Cholesterol [Mass/Vol] 186 mg/dL Normal <=200 [facility] Comment on above: Performed By: #### T SH, BNP, CMP, T7, LIPID ####[facility] [address] [address]Dr. Eusebia Moralez Cholesterol in HDL [Mass/Vol] 45 mg/dL Normal 40-60 [facility] Comment on above: Performed By: #### T SH, BNP, CMP, T7, LIPID ####[facility] [address] [address]Dr. Eusebia Moralez Cholesterol in LDL [Mass/Vol] 118.4 mg/dL Normal [facility] Comment on above: Performed By: #### T SH, BNP, CMP, T7, LIPID ####[facility] [address] [address]Dr. Eusebia Moralez Cholesterol.total/C holesterol in HDL [Mass ratio] 4.1 {ratio} Normal [facility] Comment on above: Performed By: #### T SH, BNP, CMP, T7, LIPID ####[facility] [address] [address]Dr. Eusebia Moralez HDL NORMAL > or = 60 mg/dl - LO W CARDIOVASCULAR RISK <40 mg/dl - HIGH CARDIOVASCULAR RISK Normal [facility] Comment on above: Performed By: #### T SH, BNP, CMP, T7, LIPID ####[facility] [address] [address]Dr. Eusebia Moralez LDL CALC NORMAL SEE BELOW Normal [facility] Comment on above: Result Comment: <100 mg/dl OPTIMAL 100 - 129 mg/dl NEAR OR ABOVE OPTIMAL 130 - 159 mg/dl BORDERLINE HIGH 160 - 189 mg/dl HIGH >190 mg/dl VERY HIGH Performed By: #### T SH, BNP, CMP, T7, LIPID ####[facility] [address] [address]Dr. Eusebia Moralez Triglyceride [Mass/Vol] 113 mg/dL Normal <=150 [facility] Comment on above: Performed By: #### T SH, BNP, CMP, T7, LIPID ####[facility] [address] [id number]. Eusebia Moralez VLDL CALC 22.6 mg/dL Normal [facility] Comment on above: Performed By: #### T SH, BNP, CMP, T7, LIPID ####[facility] [address] [address]Dr. Eusebia Moralez PROF 14(COMP METB)on 022 Albumin [Mass/Vol] 3.3 g/dL Critically low 3.4-5.0 [facility] Comment on above: Performed By: #### T SH, BNP, CMP, T7, LIPID #### [facility] [address] [address] [address] Eusebia Moralez Albumin/Globulin [Mass ratio] 0.9 {ratio} Normal [facility] Comment on above: Performed By: #### T SH, BNP, CMP, T7, LIPID #### [facility] [address] [place] [address] Dr. Eusebia Moralez ALP [Catalytic activity/Vol] 81 U/L Normal 46-116 [facility] Comment on above: Performed By: #### T SH, BNP, CMP, T7, LIPID #### [facility] [address] [place] [address] Dr. Eusebia Moralez ALT [Catalytic activity/Vol] 19 U/L Normal 14-59 [facility] Comment on above: Performed By: #### T SH, BNP, CMP, T7, LIPID #### [facility] [address] [address] [address] Eusebia Moralez Anion gap [Moles/Vol] 12.3 mmol/L Normal [facility] Comment on above: Performed By: #### T SH, BNP, CMP, T7, LIPID #### [facility] [address] [place] [address] Dr. Eusebia Moralez AST [Catalytic activity/Vol] 12 U/L Critically low 15-37 [facility] Comment on above: Performed By: #### T SH, BNP, CMP, T7, LIPID #### [facility] [address] [place] [address] Dr. Eusebia Moralez Bilirubin [Mass/Vol] 0.4 mg/dL Normal 0.2-1.0 [facility] Comment on above: Performed By: #### T SH, BNP, CMP, T7, LIPID #### [facility] [address] [place] [address] Dr. Eusebia Moralez Calcium [Mass/Vol] 8.9 mg/dL Normal 8.5-10.1 [facility] Comment on above: Performed By: #### T SH, BNP, CMP, T7, LIPID #### [facility] [address] [place] [address] Dr. Eusebia Moralez Chloride [Moles/Vol] 106 mmol/L Normal 98-107 [facility] Comment on above: Performed By: #### T SH, BNP, CMP, T7, LIPID #### [facility] [address] [place] [address] Dr. Eusebia Moralez CO2 [Moles/Vol] 27.4 mmol/L Normal 21.0-32.0 [facility] Comment on above: Performed By: #### T SH, BNP, CMP, T7, LIPID #### [facility] [address] [place] [address] Dr. Eusebia Moralez Creatinine [Mass/Vol] 1.51 mg/dL Critically high 0.55-1.02 [facility] Comment on above: Performed By: #### T SH, BNP, CMP, T7, LIPID #### [facility] [address] [place] [address] Dr. Eusebia Moralez EGFR-AF SENEGALESE 41 mL/min/1.73m2 Critically low >=60 [facility] Comment on above: Performed By: #### T SH, BNP, CMP, T7, LIPID #### [facility] [address] [place] [address] Dr. Eusebia Moralez EGFR-NON AF SENEGALESE 34 mL/min/1.73m2 Critically low >=60 [facility] Comment on above: Performed By: #### T SH, BNP, CMP, T7, LIPID #### [facility] [address] [place] [address] Dr. Eusebia Moralez Globulin (S) [Mass/Vol] 3.5 g/dL Normal [facility] Comment on above: Performed By: #### T SH, BNP, CMP, T7, LIPID #### [facility] [address] [place] [address] Dr. Eusebia Moralez Glucose [Mass/Vol] 129 mg/dL Critically high 74-106 [facility] Comment on above: Performed By: #### T SH, BNP, CMP, T7, LIPID #### [facility] [address] [address] [address] Eusebia Moralez Potassium [Moles/Vol] 4.7 mmol/L Normal 3.5-5.1 [facility] Comment on above: Performed By: #### T SH, BNP, CMP, T7, LIPID #### [facility] [address] [address] [address] Eusebia Moralez Protein [Mass/Vol] 6.8 g/dL Normal 6.4-8.2 [facility] Comment on above: Performed By: #### T SH, BNP, CMP, T7, LIPID #### [facility] [address] [address] [address] Eusebia Moralez Sodium [Moles/Vol] 141 mmol/L Normal 136-145 [facility] Comment on above: Performed By: #### T SH, BNP, CMP, T7, LIPID #### [facility] [address] [address] [address] Eusebia Moralez Urea nitrogen [Mass/Vol] 37.0 mg/dL Critically high 7.0-18.0 [facility] Comment on above: Performed By: #### T SH, BNP, CMP, T7, LIPID #### [facility] [address] [place] [address] Dr. Eusebia Moralez Urea nitrogen/Creatinine [Mass ratio] 24.5 mg/mg Normal [facility] Comment on above: Performed By: #### T SH, BNP, CMP, T7, LIPID #### [facility] [address] [address] [address] Eusebia Moralez TSHon 01-14-2022 TSH 0.068 uIU/mL Critically low 0.358-3.740 [facility] Comment on above: Performed By: #### T SH, BNP, CMP, T7, LIPID ####[facility] [id number] [address]. Eusebia Moralez Covid-19 PCR (CVDTB)on 10-13 SARS-CoV-2 (COVID-19) RNA DEREK+probe Ql (Unsp spec) Not detected Normal NOT DETECTED [facility] Comment on above: Result Comment: This test is not yet approved or cleared by the [place] FDA. When there are no FDA-approved or cleared tests available, and other criteria are met, FDA can make tests available under an emergency access mechanism called an Emergency Use Authorization (EUA). The EUA for this test is supported by the [facility] of Health and Human Service's (HHS's) declaration [...] consistent with SARS-CoV-2. Performed By: #### [facility] ####[facility] [id number] [place], [place] [address]Js. Eusebia Moralez MRI LSPINE WO CONon 10-11-19 [...] AMBAR MOON Date: 2021-10-10 07:29 Normal [facility] Pulmonary Progress Noteo n 09-13-2020 [facility] Pulmonary Progress Note [facility] Pt Name: VERO SADLER [address] [place] [address] MR#: [id number] [place] [address] ACCT: [id number] PROGRESS NOTE- Pulmonary : [facility] Date of Service: 09/13/20 Text NAME: VERO SADLER MR#: [id number] DATE OF SERVICE: 09/13/2020 OUTPATIENT PULMONARY PROGRESS [...] disease, severity unknown. We will try to [facility] Pt Name: VERO SADLER [address] [place] [address] MR#: [id number] [place] [address] ACCT: [id number] PROGRESS NOTE- Pulmonary : [facility] [...] postoperative management if needed. TIM TOSCANO MD DI/MODL/[id number] 2 CC: Dr. Rito Guerrero MD eSign Date and Time Tim Toscano MD Signature on File 09/26/20 1046 Normal [facility] GLYCO HEMOon 08-23-2020 HbA1c (Bld) [Mass fraction] 5.3 % Normal [facility] Comment on above: Result Comment: Milagro cevallosmindy Diagnosis HbA1c (%) --------- Diabetic > 6.4 Prediabetes 5.7-6.4 Normal < 5.7 Performed By: #### L 500.23857 #### Test performed at: [address] [address] CBC W/DIFFon 08-22-2020 BASO ABS 0.0 K/uL Normal 0.0-0.2 [facility] Comment on above: Performed By: #### L 200.64250 #### Test performed at: [address] [address] Basophils/100 WBC (Bld) 0.5 % Normal [facility] Comment on above: Performed By: #### L 200.28982 #### Test performed at: [address] [address] EOS ABS 0.1 K/uL Normal 0.0-0.5 [facility] Comment on above: Performed By: #### L 200.54153 #### Test performed at: [address] [address] Eosinophils/100 WBC (Bld) 1.2 % Normal [facility] Comment on above: Performed By: #### L 200.03680 #### Test performed at: [address] [address] Erythrocyte distribution width (RBC) [Ratio] 12.8 % Normal 11.5-14.5 [facility] Comment on above: Performed By: #### L 200.33714 #### Test performed at: [address] [address] Hematocrit (Bld) [Volume fraction] 40.1 % Normal 36.0-48.0 [facility] Comment on above: Performed By: #### L 200.28122 #### Test performed at: [address] [address] Hemoglobin (Bld) [Mass/Vol] 12.4 g/dL Normal 12.0-15.0 [facility] Comment on above: Performed By: #### L 200.16660 #### Test performed at: [address] [address] IG % 0.3 % Normal [facility] Comment on above: Performed By: #### L 200.65396 #### Test performed at: [address] [address] IG ABS 0.02 K/uL Normal 0-0.05 [facility] Comment on above: Performed By: #### L 200.39782 #### Test performed at: [address] [address] Lymphocytes (Bld) [#/Vol] 1.3 10*3/uL Normal 1.2-3.5 [facility] Comment on above: Performed By: #### L 200.68523 #### Test performed at: [address] [address] Lymphocytes/100 WBC (Bld) 16.9 % Normal [facility] Comment on above: Performed By: #### L 200.49637 #### Test performed at: [address] [address] MCH (RBC) [Entitic mass] 29.0 pg Normal 25.4-34.6 [facility] Comment on above: Performed By: #### L 200.92527 #### Test performed at: [address] [address] MCHC (RBC) [Mass/Vol] 30.9 g/dL Low 31.5-36.5 [facility] Comment on above: Performed By: #### L 200.33049 #### Test performed at: [address] [address] MCV (RBC) [Entitic vol] 93.7 fL Normal 79.0-98.0 [facility] Comment on above: Performed By: #### L 200.14559 #### Test performed at: [address] [address] MONO ABS 0.8 K/uL Normal 0.0-1.0 [facility] Comment on above: Performed By: #### L 200.31739 #### Test performed at: [address] [address] Monocytes/100 WBC (Bld) 9.7 % Normal [facility] Comment on above: Performed By: #### L 200.85353 #### Test performed at: [address] [address] NEUTROPHIL ABS 5.5 K/uL Normal 1.4-6.6 [facility] Comment on above: Performed By: #### L 200.06492 #### Test performed at: [address] [address] Neutrophils/100 WBC (Bld) 71.4 % Normal [facility] Comment on above: Performed By: #### L 200.96897 #### Test performed at: [address] [address] NRBC # 0.000 K/uL Normal 0-0.012 [facility] Comment on above: Performed By: #### L 200.40061 #### Test performed at: [address] [address] NRBC % 0.0 /100 WBC Normal 0-0.2 [facility] Comment on above: Performed By: #### L 200.84428 #### Test performed at: [address] [address] Platelet mean volume (Bld) [Entitic vol] 10.1 fL Normal 8.7-12.4 [facility] Comment on above: Performed By: #### L 200.68069 #### Test performed at: [address] [address] Platelets (Bld) [#/Vol] 236 10*3/uL Normal 140-440 [facility] Comment on above: Performed By: #### L 200.08389 #### Test performed at: [address] [address] RBC (Bld) [#/Vol] 4.28 10*6/uL Normal 3.5-5.5 [facility] Comment on above: Performed By: #### L 200.88118 #### Test performed at: [address] [address] WBC (Bld) [#/Vol] 7.7 10*3/uL Normal 3.9-11.0 [facility] Comment on above: Performed By: #### L 200.11608 #### Test performed at: [address] [address] CHEST PA/AP & LATERAL OR 2 V WSon 08-22-2020 CHEST PA/AP & LATERAL OR 2 VWS STUDY: CHEST PA/AP LATERAL OR 2 VWS; 08/22/2020 2:35 pm INDICATION: COPD. COMPARISON: None. ACCESSION NUMBER(S): [id number] ORDERING CLINICIAN: Ovidio Baez FINDINGS: The lungs are clear without pleural effusion. Borderline cardiomegaly. Otherwise unremarkable mediastinum, eron, and pulmonary vasculature. Thoracic degenerative changes are present. IMPRESSION: No active disease in the chest. Normal [facility] COMP META PANELon 08-22-2020 Albumin [Mass/Vol] 3.4 g/dL Normal 3.4-5.0 [facility] Comment on above: Performed By: #### L 500.19900, L500.08068, L500.67740 #### Test performed at: [address] [address] ALK PHOS TOTAL 88 U/L Normal 45-117 [facility] Comment on above: Performed By: #### L 500.61707, L500.22612, L500.41338 #### Test performed at: [address] [address] ALT [Catalytic activity/Vol] 17 U/L Normal 13-61 [facility] Comment on above: Performed By: #### L 500.49919, L500.53236, L500.90544 #### Test performed at: [address] [address] AST [Catalytic activity/Vol] 12 U/L Low 15-37 [facility] Comment on above: Performed By: #### L 500.34943, L500.72391, L500.84709 #### Test performed at: [address] [address] BILI TOTAL 0.5 mg/dL Normal 0.2-1.0 [facility] Comment on above: Performed By: #### L 500.09573, L500.67878, L500.00386 #### Test performed at: [address] [address] Calcium [Mass/Vol] 9.0 mg/dL Normal 8.5-10.1 [facility] Comment on above: Performed By: #### L 500.84573, L500.86398, L500.45049 #### Test performed at: [address] [address] Chloride [Moles/Vol] 107 mmol/L Normal 98-107 [facility] Comment on above: Performed By: #### L 500.29985, L500.17848, L500.18018 #### Test performed at: [address] [address] CO2 [Moles/Vol] 29 mmol/L Normal 21-32 [facility] Comment on above: Performed By: #### L 500.62536, L500.09691, L500.96721 #### Test performed at: [address] [address] Creatinine [Mass/Vol] 1.280 mg/dL High 0.550-1.020 [facility] Comment on above: Performed By: #### L 500.85969, L500.81741, L500.37087 #### Test performed at: [address] [address] Glucose [Mass/Vol] 90 mg/dL Normal 70-99 [facility] Comment on above: Result Comment: Fast ing GLUCOSE reference range has been updated per (ADA) [place] Diabetes [employer]'s recommendation. 06/07/2018 Performed By: #### L 500.26735, L500.16288, L500.75674 #### Test performed at: [address] [address] Potassium [Moles/Vol] 4.4 mmol/L Normal 3.5-5.1 [facility] Comment on above: Performed By: #### L 500.20030, L500.02638, L500.75608 #### Test performed at: [address] [address] Protein [Mass/Vol] 6.8 g/dL Normal 6.4-8.2 [facility] Comment on above: Performed By: #### L 500.03971, L500.01606, L500.10946 #### Test performed at: [address] [address] Sodium [Moles/Vol] 142 mmol/L Normal 136-145 [facility] Comment on above: Performed By: #### L 500.21075, L500.01758, L500.55321 #### Test performed at: [address] [address] Urea nitrogen [Mass/Vol] 21 mg/dL High 7-18 [facility] Comment on above: Performed By: #### L 500.26214, L500.83296, L500.42547 #### Test performed at: [address] [address] GFR ESTIMATEon 08-22-2020 IF AMER 50 Low > 60 [facility] Comment on above: Result Comment: eGFR (Estimated GFR) Units of measure:mL/min/1.73 meters sq. *CALCULATION REVISED 01/01/2015;IDMS-traceable MDRD equation eGFR is derived from the reexpressed MDRD Study equation using the following parameters: serum creatinine, age, gender and race. An eGFR<60 mL/min/1.73m2 for >3 months is consistent with chronic kidney disease. Refer to KDOQI guidelines for clinical interpretation. Performed By: #### L 500.87177, L500.11027, L500.38473 #### Test performed at: [address] [address] IF non-AFR AMER 41 Low > 60 [facility] Comment on above: Performed By: #### L 500.19123, L500.90028, L500.61757 #### Test performed at: [address] [id number] TSH ULTRA SENSon 08-22-2020 TSH ULTRA SENS < 0.005 Low 0.358-3.74 [facility] Comment on above: Performed By: #### L 500.58245, L500.93716, L500.40676 #### Test performed at: [id number] [address] [address] LUMB SP COMP W FLEX/EXT 6 VW Son 07-23-2020 LUMB SP COMP W FLEX/EXT 6 VWS STUDY: LUMB SP COMP W FLEX/EXT 6 VWS ; 07/23/2020 9:01 am INDICATION: PAIN. COMPARISON: None. ACCESSION NUMBER(S): [id number] ORDERING CLINICIAN: Sacha Guerrero FINDINGS: No fracture [...] of the lumbar spine without instability. Normal [facility] Vital Signs Date Time Vital Sign Value Performing Clinician Ted guerra 01-06-2024 13:02-0400 Body height 162.56 cm [facility] 01-06-2024 13:02-0400 Body mass index (BMI) [Ratio] 50.5 kg/m2 [facility] 01-06-2024 13:02-0400 Body temperature 96.3 [degF] [facility] 01-06-2024 13:02-0400 Body weight 133.46 kg [facility] 01-06-2024 13:02-0400 Diastolic blood pressure 90 mm[Hg] [facility] 01-06-2024 13:02-0400 Heart rate 81 /min [facility] 01-06-2024 13:02-0400 Respiratory rate 18 /min [facility] 01-06-2024 13:02-0400 SaO2% (BldA) [Mass fraction] 98 % [facility] 01-06-2024 13:02-0400 Systolic blood pressure 179 mm[Hg] [facility] Encounters Encounter Date Encounter Type Care Provider Facility Start: 03-31-2024 ambulatory ROSETTA ADAMS Facility:SABINA Lyons Start: 02-22-2024 ambulatory ROSETTADOMINIQUE ADAMS Facility:SABINA Lyons Start: 02-14-2024 End: 02-14-2024 ambulatory Cande Garcia MD Facility:KYLEIGH Ledesma Start: 02-08-2024 End: 02-08-2024 ambulatory [facility] Start: 01-26-2024 End: 01-26-2024 ambulatory TATO SALCIDO [facility] Start: 01-06-2024 End: 01-06-2024 ambulatory [facility] Work Phone: Start: 01-06-2024 End: 01-06-2024 Patient encounter procedure [facility] Nephrology Javier Work Phone: Start: 11-23-2023 End: 11-23-2023 Encounter for other specified special examinations [facility] Start: 11-23-2023 End: 11-23-2023 [facility] Start: 10-26-2023 End: 10-26-2023 ambulatory [facility] Start: 07-20-2023 End: 07-20-2023 [facility]: 07-09-2023 ambulatory JOSE ANGEL MEEHAN [facility] Start: 06-30-2023 End: 06-30-2023 ambulatory [facility] Start: 05-31-2023 End: 05-31-2023 [facility] Start: 03-26-2023 ambulatory JOSE ANGEL MEEHAN [facility] Start: 03-23-2023 End: 03-23-2023 ambulatory [facility] Start: 02-16-2023 End: 02-16-2023 ambulatory NATALIA KUHN [facility] Start: 07-17-2022 End: 07-18-2022 ambulatory JOSEY KWOK [...] function 1999 panel - Serum or Plasma [facility] enter [facility] Payers Date Payer Category Payer Medicare 2023 Private Health Insurance 2022 Medicare [id number] 1958 Medicare [id number] 1958 Unknown [id number] 1950 Unknown [id number] 2.16.84 0.1.342216.3.579.2.593 1950 Unknown [id number] 2.16.84 0.1.678500.3.579.2.593 1950 Unknown [id number] 2.16.84 0.1.067517.3.579.2.593 1950 Unknown [id number] 2.16.84 0.1.209384.3.579.2.593 1951 Unknown [id number] 2.16.84 0.1.713405.3.579.2.593 1950 Unknown [id number] 2.16.84 0.1.920629.3.579.2.593 1950 Unknown [id number] 2.16.84 0.1.872625.3.579.2.593 1950 Unknown [id number] 2.16.84 0.1.441154.3.579.2.593 1950 Unknown [id number] 2.16.84 0.1.984707.3.579.2.593 1950 Unknown [id number] 2.16.84 0.1.966328.3.579.2.593 1950 Unknown [id number] 2.16.84 0.1.957166.3.579.2.593 1950 Unknown [id number] 2.16.84 0.1.484192.3.579.2.593 1950 Unknown [id number] 2.16.84 0.1.307590.3.579.2.593 1950 Unknown [id number] 2.16.84 0.1.910014.3.579.2.593 1950 Unknown [id number] 2.16. 840.1.176838.3.579.2.196 1950 Unknown [id number] 2.16.8 40.1.824339.3.579.2.727 Unknown Unknown [id number] Social History Date Type Detail Facility Start: 01-06-2024 Tobacco smoking stat us NHIS Ex-smoker (finding) [facility] Start: 1950 Sex Assigned At Female F [facility] Progress note 01-26-2024 Note Date & Type Note Facility 01-26-2024 Note [facility] Cardiology Clinic Note Chief Complaint: Patient is here today for follow up [facility] ED visit. She was having chest pressure, [...] 479 g, Rfl (more content not included)... [facility] Progress note 10-26-2023 Note Date & Type Note Facility 10-26-2023 Note [facility] Consul t Note Reason for visit: [...] sleep apnea 10/02/2022 SOBIA=17.7 events/hour; Pranav SaO2=76%; Fwggwb=241.0 lbs; BMI=52.7 kg/m2, Home Sleep Apnea Testing on 09/25/2022 at [facility] PSH: Past Surgical History: Procedure Laterality [...] Allergen Reactions Penicillins (more content not included)... [facility] Progress note 07-20-2023 Note Date & [...] was recently taken off spironolactone by her audio visual technician. She is on po bumex daily. For [...] kidney disease COPD (chronic obstructive pulmonary disease) ([facility]) Hypertension Myocardial infarction ([facility]) Obstructive sleep apnea 10/02/2022 SOBIA=17.7 events/hour; Pranav SaO2=76%; Xhambx=864.0 lbs; BMI=52.7 kg/m2, Home Sleep Apnea Testing on 09/25/2022 at [facility] Family History Problem Relation Name Age [...] the morning, afternoon, and at bedtime. omega 9-hal-yin-fish oil 350 mg-235 mg- 90 mg-597 mg [...] past 168 hour(s)) (more content not included)... 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 patient reports that overall she [...] further. She was able to walk around [email or web address] store which she previously was not able to do without taking long breaks. Reports improved sleep at night. Her back pain is significantly improved laying flat. Patient denies issues with incisions other than some bruising. Steri-Strips are still intact. Denies any fevers chills . Denies any drainage or discharge from incision. Patient reports that she becerra (more content not included)... [facility] Clinical Note 05-31-2023 Note Date & Type Note Facility 05-31-2023 Note Interventional Pain Management Nursing Note / Nurse Post-Call Note S/p SHANTE TFESI S1 Patient reports pain level 0. Pre procedure pain level 8 on 05/31/23. Denies problems or complications. Reminded of next appointment 07/09/23 at 1030. 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 patient reports that overall she [...] further. She was able to walk around [employer] store which she previously was not able [...] plans to dispo (more content not included)... [facility] Progress note 03-23-2023 Note Date & Type Note Facility 03-23-2023 Note [facility] Consul t Note Reason for visit: [...] sleep apnea 10/02/2022 SOBIA=17.7 events/hour; Pranav SaO2=76%; Dymrni=565.0 lbs; BMI=52.7 kg/m2, Home Sleep Apnea Testing on 09/25/2022 at [facility] PSH: Past Surgical History: Procedure Laterality [...] on File Prio (more content not included)... [facility] Progress note 02-16-2023 Note Date & Type Note Facility 02-16-2023 Note [facility] Gastroenterolog y Follow-Up Patient Visit CHIEF COMPLAINT Diarrhea HISTORY OF PRESENT ILLNESS: Vero Shamika Sadler is a 72 y.o. female w/ [...] with abdominal pain, bloating, and diarrhea. Sedation: [facility] Attending Physician: Dr. Dario Calderon Rock Mason: Nancy Prado, Fellow Procedure Details: Informed consent [...] and Crohn's disease in her mother. Sedation: [facility] Attending Physician: Dr. Dario Calderon Findings: Poor [...] small external hemorrhoid (more content not included)... 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 acute Secondary hyperparathyroidism acute Chronic kidney disease nonea ctive [facility] Work Phone: Summary Purpose Family History [...] disease) stage 4, GFR 15-29 ml/min Hyperkalemia [id number] Secondary hyperparathyroidism Chronic kidney disease Additional Source Comments INFORMATION SOURCE (unrecogn ized section and content) DATE CREATED AUTHOR 09/08/2017 [facility] DATE CREATED AUTHOR AUTHOR'S ORGANIZ ATION 09/27/2020 [facility] DATE CREATED AUTHOR AUTHOR'S ORGANIZ ATION 07/24/2022 [facility] DATE CREATED AUTHOR AUTHOR'S ORGANIZ ATION 02/11/2024 [facility] DATE CREATED AUTHOR AUTHOR'S ORGANIZ ATION 02/17/2024 [facility] DATE CREATED AUTHOR AUTHOR'S ORGANIZ ATION 02/25/2024 [facility] Care Teams (unrecognized sec tion and content) Team Status: Active Member Role Status Dates eDbbie Arvizu MD Primary Care Provider Active Team [...] BE BASED ON THE PRIMARY CLINICAL RECORDS. [facility] provides no warranty or guarantee of the accuracy or completeness of information in this document.
--- NOTE | 2024-03-10 14:55 | XR_ITS ---
The [address] [address] Patient Name: JUSTIN COLLINS MRN: [id number] date: 1950 Sex: F Assigned Patient Location: [facility] Current Patient Location: [facility] Accession/Order Number: [id number] Exam Date: 03/10/2024 14:45 Report Date: 03/10/2024 15:20 At the request of: DEBBIE BHATIA Procedure: XR foot RT 2V PROCEDURE: XR foot RT 2V HISTORY: Right Foot Pain M79.671 COMPARISON: None. FINDINGS: BONES:Ossification projecting dorsally from the base of one of the metatarsal tarsals seen on the lateral view suspected to represent a degenerative osteophyte. Mild degenerative changes the midfoot, first metatarsophalangeal joint, and the interphalangeal joints. SOFT TISSUES:Distal dorsal soft tissue swelling. EFFUSION:None visible. OTHER: Negative. XR/XR foot RT 2V IMPRESSION: 1. Prominent distal dorsal soft tissue swelling consistent with patient history. 2. Degenerative osteophyte versus fracture fragment along dorsal margin at the base of one of the metatarsals. I suspect this represents a degenerative osteophyte. Electronically authenticated by: AMBAR MAYA Date: 03/10/2024 15:20
== END 2024-03-10 14:39 | disposition home or self-care (01) ==
LOC: RAD 14:38
PROVIDERS: PCP Family Medicine; Visit Provider Family Medicine
DX: M79.671 Pain in right foot (principal); M25.474 Effusion, right foot
CPT/HCPCS: 73620

== ENCOUNTER 2024-05-01 06:42 | Day surgery (SDC) | payer MEDICARE, SELFPAY ==
--- OUTSIDE RECORDS SUMMARY | 2024-05-01 06:45 | XMS_ITS | CCD ---
Author Organization [facility] Care Team Providers Care Rf Test Engineer Name Role Phone PHYSICIAN, DEFAULT Unavailable Unavailable PHYSICIAN, DEFAULT Unavailable Unavailable DEBBIE ARVIZU Unavailable Unavailable HOY ., DR LEWIS Consulting Unavailable HOY ., DR LEWIS Attending Unavailable HOY ., DR LEWIS Primary Care Unavailable HOY ., DR LEWIS Admitting Unavailable WASHINGTON, DR RAJI Odonnell Consulting Unavailable HOY ., DR LEWIS Consulting Unavailable HOY ., DR LEWIS Attending Unavailable HOY ., DR LEWIS Primary Care Unavailable HOY ., DR LEWIS Admitting Unavailable HOY ., DR LEWIS Primary Care Unavailable HOY ., DR LEWIS Consulting Unavailable HURTADOJAMESCAPO Admitting Unavailable CAPO HURTADO Attending Unavailable HOY ., DR LEWIS Primary Care Unavailable Ambar Moon Consulting Unavailable CAPO HURTADO Attending Unavailable JAMES HURTADOSON Admitting Unavailable CAPO HURTADO Consulting Unavailable JOSEY KWOK Admitting Unavailable HOLula ., DR LEWIS Primary Care Unavailable JOSEY KWOK Consulting Unavailable JOSEY KWOK Attending Unavailable JOSEY KWOK Consulting Unavailable SRIRAM .DR LEWIS Primary Care Unavailable JOSEY KWOK Attending Unavailable JOSEY KWOK Admitting Unavailable HOLula .DR LEWIS Primary Care Unavailable SAMSA ., AMANDA Attending Unavailable SAMSA ., AMANDA Admitting Unavailable SAMSA ., AMANDA Consulting Unavailable HOLula .DR LEWIS Primary Care Unavailable JULIANNE .EUN Admitting Unavailable JULIANNE .EUN Attending Unavailable LITO .SOMMER Consulting Unavailable SRIRAM ., DR LEWIS Primary Care Unavailable MISC, DR LOPEZ Admitting Unavailable MISC, DR LOPEZ Attending Unavailable HOY ., DR LEWIS Primary Care Unavailable SAMSA [...] Unavailable HOY ., DR LEWIS Admitting Unavailable WASHINGTON, DR RAJI Odonnell Consulting Unavailable REBEKAHHAWY, TATO Attending Unavailable JOSEY KWOK Attending Unavailable JOSEY KWOK Referring Unavailable JOSEY KWOK Attending Unavailable JOSE ANGEL MEEHAN Referring Unavailable JOSE ANGEL MEEHAN Attending Unavailable JOSE ANGEL MEEHAN Referring Unavailable JOSE ANGEL MEEHAN Referring Unavailable JOSE ANGEL MEEHAN Referring Unavailable JOSEY KWOK Referring Unavailable JOSE ANGEL MEEHAN Attending Unavailable NATALIA KUHN Attending Unavaila OLLIE Cary Attending Unavailable JOSE ANGEL MEEHAN Attending Unavailable Radha BELTRÁN, Cande Venegas Attending Unavailable Debbie Arvizu Primary Care Physician ROSETTA ADAMS Attending Unavail able ROSETTA ADAMS Attending Unavail able Debbie Arvizu Referring Unavailable Allergies Allergy Classification Reported Allergen(s) Allergy Type Date of Onset Reaction(s) Facility (5 sources) Penicillins; Translations: [PENICILLINS] Drug allergy (disorder) 5 AOF, Unknown Reaction [facility] (1 source) Adhesive Tape Allergy to substance [address] [facility] (2 sources) Adhesive bandage; Translations: [Adhesive Bandage] Drug allergy Weal (disorder) [facility] [place] Medications Current Medications Medication Drug Class(es) Dates Sig (Normalized) Sig (Original) [id number] 200 actuat albuterol 0.09 mg/actuat metered dose inhaler (4 sources) beta2-Adrenergic Agonist Start: 01-06-2024 take 2.5 mg by inhalation every four to six hours Albuterol Sulfate Active 2.5 MG INHALATION EVERY 4-6 HOURS January 06, 2024 12:00am Start: 01-06-2024 take 1 puff(s) by in halation four times daily Albuterol Sulfate Active 2 PUFF INHALATION Four times daily January 06, 2024 12:00am Start: 11-25-2022 take 2.5 mg by inhal ation four times daily albuterol 0.083% Inh Viviana 3 mL 2.5 mg, 3 mL, NEB, QID Shortness of breath or wheezing, Refill(s) 0 Start Date: 11/25/22 Status: Ordered Start: 11-25-2022 take 2 puff(s) by in halation every four hours Albuterol (Eqv-ProAir HFA) 2 puff(s), Inhalation, q4hr Shortness of breath or wheezing, Refill(s) 0 Start Date: 11/25/22 Status: Ordered aspirin 81 mg delayed release oral tablet (2 sources) Platelet Aggregation Inhibitor, Nonsteroidal Anti-inflammatory Drug Start: 11-25-2022 Aspirin (Adult Low Dose Aspirin) 81 mg tablet,delayed release (DR/EC) Active 81 MG PO Daily January 06, 2024 12:00am bumetanide 1 mg oral tablet (2 sources) Loop Diuretic Start: 11-25-2022 take 1 mg by mouth once daily Bumetanide Active 1 MG PO Daily January 06, 2024 12:00am calcium carbonate 1500 mg / cholecalciferol 0.01 mg oral tablet (1 source) Vitamin D Start: 01-06-2024 take 2 tablets by mouth once daily in the morning Calcium Carbonate-Vitamin D3 Active 2 TAB PO Every morning January 06, 2024 12:00am carvedilol 25 mg oral tablet (2 sources) alpha-Adrenergic Florence, beta-Adrenergic Florence Start: 01-06-2024 take 12.5 mg by mouth twice daily Carvedilol Active 12.5 MG PO Twice daily January 06, 2024 12:00am Start: 11-25-2022 carvedilol 25 mg Tab 12.5 mg = 0.5 tab(s), Oral, BID, Refills(s) 0 Start Date: 11/25/22 Status: Ordered citric acid 75 mg/ml / magnesium oxide [...] 0; Qty: 1 Box; Provider: Musa May diclofenac potassium 50 mg oral tablet (1 source) Nonsteroidal Anti-inflammatory Drug Start: 11-25-2022 take 1 tablet by mouth once daily diclofenac potassium 50 mg oral tablet 50 mg = 1 tab(s), Oral, Daily, Refills(s) 0 Start Date: 11/25/22 Status: Ordered hydrALAZINE hydrochloride 100 mg oral tablet (2 sources) Arteriolar Vasodilator Start: 11-25-2022 take 100 mg by mouth three times daily Hydralazine Active 100 MG PO Three times daily January 06, 2024 12:00am hyoscyamine sulfate 0.125 mg oral tablet (1 source) Start: 01-06-2024 take 0.125 mg by mouth four times daily Hyoscyamine Sulfate Active 0.125 MG PO Four times daily January 06, 2024 12:00am isosorbide dinitrate 10 mg oral tablet (2 sources) Nitrate Vasodilator Start: 11-25-2022 take 1 tablet by mouth once daily isosorbide dinitrate 20 mg Tab 20 mg = 1 tab(s), Oral, Daily, Refills(s) 0 Start Date: 11/25/22 Status: Ordered Start: 11-25-2022 take 1 tablet by shaun th once daily isosorbide dinitrate 10 mg Tab 10 mg = 1 tab(s), Oral, Daily, Refills(s) 0 Start Date: 11/25/22 Status: Ordered levothyroxine sodium 0.1 mg oral capsule (2 sources) l-Thyroxine Start: 01-06-2024 take 100 ug by mouth once daily Levothyroxine Active 100 MCG PO Daily January 06, 2024 12:00am Start: 11-25-2022 take 1 tablet by shaun once daily levothyroxine 100 mcg (0.1 mg) Tab 100 mcg = 1 tab(s), Oral, Daily, Refills(s) 0 Start Date: 11/25/22 Status: Ordered liothyronine (2 sources) l-Triiodothyronine Start: 01-06-2024 take 37.5 ug by mouth once daily Liothyronine Active 37.5 MCG PO Daily January 06, 2024 12:00am Start: 11-25-2022 take 1 tablet by shaun once daily Cytomel 25 mcg Tab 25 mcg = 1 tab(s), Oral, Daily, Refills(s) 0 Start Date: 11/25/22 Status: Ordered lisinopril 10 mg oral tablet (2 sources) Angiotensin Converting Enzyme Inhibitor Start: 01-06-2024 take 10 mg by mouth once daily Lisinopril Active 10 MG PO Daily January 06, 2024 12:00am Start: 11-25-2022 take 1 tablet by [facility] once daily lisinopril 5 mg Tab 5 mg = 1 tab(s), Oral, Daily, Refills(s) 0 Start Date: 11/25/22 Status: Ordered lovastatin 20 mg oral tablet (2 sources) HMG-CoA Reductase Inhibitor Start: 11-25-2022 take 20 mg by mouth once daily Lovastatin Active 20 MG PO Daily January 06, 2024 12:00am ondansetron 4 mg disintegrating oral tablet (1 source) Serotonin-3 Receptor Antagonist Start: 11-25-2022 take 1 tablet by mouth every six hours as needed for nausea ondansetron 4 mg Dis Tab 4 mg = 1 tab(s), Oral, q6hr, PRN Nausea/Vomiting, Refills(s) 0 Start Date: 11/25/22 Status: Ordered pantoprazole 40 mg delayed release oral tablet (2 sources) Proton Pump Inhibitor Start: 03-31-2024 take 1 tablet by mouth once daily Pantoprazole [address] Tab 40 mg = 1 tab(s), Oral, Daily Start Date: 03/31/24 Status: Ordered Start: 01-06-2024 take 40 mg by mouth once daily Pantoprazole Active 40 MG PO Daily January 06, 2024 12:00am traMADol hydrochloride 50 mg oral tablet (1 source) Opioid Agonist Start: 01-06-2024 take 50 mg by mouth twice daily Tramadol Active 50 MG PO Twice daily January 06, 2024 12:00am Completed/Discontinued Medications Medication Drug Class(es) Dates Sig (Normalized) Sig (Original) betamethasone 0.5 mg/ml / clotrimazole 10 mg/ml topical cream (2 sources) Azole Antifungal, Corticosteroid Start: 03-31-2024 betamethasone-cl otrimazole Top 0.05%-1% Crm 15 gram Refill(s) 0 Start Date: 03/31/24 Status: Ordered Start: 01-06-2024 Clotrimazole-B etamethasone Active APPLIC TOPICAL January 06, 2024 12:00am Problems Active Problems Problem Classification Problem Date Documented Date Episodic/Chronic Abdominal pain (2 sources) Epigastric pain; Translations: [Epigastric pain] Onset: 4 Episodic Calculus of urinary tract (2 sources) Kidney stone; Translations: [Calculus of kidney] Onset: 5 Episodic Cardiac dysrhythmias (5 sources) Supraventricular tachycardia; Translations: [Atrial fibrillation] Onset: 3 Chronic Chronic kidney disease (6 sources) Chronic kidney disease stage 4; Translations: [Chronic kidney disease, stage 4 (severe)] Onset: 4 01-06-2024 Chronic Chronic kidney disease (2 sources) Chronic kidney disease; Translations: [Chronic kidney disease, stage 3b] Onset: 4 Chronic obstructive pulmonary disease and bronchiectasis (1 source) Chronic obstructive lung disease 11-25-2022 Chronic Conduction disorders (4 sources) Encounter for checking and testing of cardiac pacemaker pulse generator [battery]; Translations: [Presence of cardiac pacemaker] Onset: 4 Chronic Congestive heart failure; nonhypertensive (3 sources) Acute combined systolic (congestive) and diastolic (congestive) heart failure; Translations: [Unspecified diastolic (congestive) heart failure] Onset: 2 Chronic Coronary atherosclerosis and other heart disease (1 source) Coronary arteriosclerosis 11-25-2022 Chronic Disorders of lipid metabolism (3 sources) Hyperlipidemia, unspecified; Translations: [Pure hypercholesterolemia, unspecified] Onset: 2 11-25-2022 Chronic Essential hypertension (2 sources) Hypertensive disorder 11-25-2022 Chronic Fluid and electrolyte disorders (3 sources) Hyperkalemia; Translations: [Hyperkalemia] Onset: 4 01-06-2024 Episodic Genitourinary symptoms and ill-defined conditions (2 sources) Stress incontinence (female) (male); Translations: [Female stress incontinence] Onset: 5 Chronic Hypertension with complications and secondary hypertension (4 sources) Hypertensive heart disease with heart failure; Translations: [Chronic kidney disease due to hypertension] Onset: 2 01-06-2024 Chronic Nutritional deficiencies (2 sources) Vitamin D deficiency, unspecified; Translations: [Vitamin D deficiency, unspecified] Onset: 4 Chronic Osteoporosis (6 sources) Age-related osteoporosis without current pathological fracture; Translations: [Other osteoporosis without current pathological fracture] Onset: 2 Chronic Other aftercare (1 source) Long-term current use of aspirin; Translations: [[facility] (current) use of aspirin] Onset: 5 Episodic Other and unspecified benign neoplasm (1 source) History of polyp of colon 11-25-2022 Episodic Other diseases of kidney and ureters (1 source) Secondary hyperparathyroidism; Translations: [Secondary hyperparathyroidism of renal origin] 01-06-2024 Chronic Other diseases of kidney and ureters (1 source) Secondary hyperparathyroidism of renal origin; Translations: [Secondary hyperparathyroidism (of renal origin)] 01-06-2024 Chronic Other diseases of veins and lymphatics (1 source) Lymphedema, not elsewhere classified; Translations: [LYMPHEDEMA NOT ELSEWHERE CLASSIFIED] Onset: 2 Chronic Other lower respiratory disease (1 source) Multiple nodules of lung 11-25-2022 Episodi c Other nutritional; endocrine; and metabolic disorders (1 source) Morbid obesity 11-25-2022 Chronic Pulmonary heart disease (1 source) Pulmonary hypertension 11-25-2022 Chronic Residual codes; unclassified (1 source) History of operative procedure on lumbar spinal structure 03-20-2024 Episodic Screening and history of mental health and substance abuse codes (1 source) Tobacco use and exposure - finding 11-25-2022 Chronic Screening and history of mental health and substance abuse codes (7 sources) Personal history of nicotine dependence; Translations: [H/O: Disorder] Onset: 2 Episodic Spondylosis; intervertebral disc disorders; other back problems (12 sources) Spinal stenosis, lumbar region with neurogenic claudication; Translations: [Radiculopathy, lumbar region] Onset: 2 Episodic Thyroid disorders (2 sources) Hypothyroidism, unspecified; Translations: [Hypothyroidism] Onset: 2 11-25-2022 Chronic Unclassified (3 sources) CONTACT W/AND (SUSP) EXPOS COVID-19; Translations: [CONTACT W/AND (SUSP) EXPOS COVID-19] Onset: 2 Unclassified (1 source) COUGH, UNSPECIFIED; Translations: [COUGH, UNSPECIFIED] Onset: 2 Unclassified (1 source) Vertebrogenic low back pain; Translations: [Vertebrogenic low back pain] Onset: 4 Unclassified (2 sources) Other persistent atrial fibrillation; Translations: [Other persistent atrial fibrillation] Onset: 3 Unclassified (1 source) Long-term current use of aspirin 03-31-2024 Past or Other Problems Problem Classification Problem Date Documented Date Episodic/Chronic Cardiac dysrhythmias (6 sources) Palpitations; Translations: [Bradycardia] Onset: 01-14-2022 Episodic Deficiency and other anemia (1 source) Anemia, unspecified; Translations: [ANEMIA UNSPECIFIED] Onset: 01-19-2022 Episodic E Codes: Cut/pierceb (1 source) Contact with other sharp object(s), not elsewhere classified, initial encounter; Translations: [[facility] OT SHRP OB NOT ELSW CLASS INI] Onset: 08-14-2021 Episodic Nonspecific chest pain (1 source) Chest pain, unspecified; Translations: [CHEST PAIN UNSPECIFIED] Onset: 01-29-2022 Episodic Open wounds of extremities (4 sources) Laceration without foreign body, right lower leg, initial encounter; Translations: [LACERATION W/O FB RT LOW LEG INIT] Onset: 08-12-2021 Episodic Other aftercare (1 source) Other roasterman (current) drug therapy; Translations: [[employer]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 DRUG THERAPY] Onset: 08-14-2021 Episodic Other [...] BOTH CERVIX AND UTERUS] Onset: 08-14-2021 Episodic Unclassified (1 source) CONTACT W/AND (SUSP) EXPOS COVID-19; Translations: [CONTACT W/AND (SUSP) EXPOS COVID-19] Onset: 10-28-2021 Unclassified (1 source) Vertebrogenic low back pain; Translations: [Vertebrogenic low back pain] Onset: 11-23-2023 Results Test Name Value Interpretation Reference Range Facility Ambulatory Visit Summaryon 0 03-31-2024 Ambulatory Visit Summary Ambulatory Visit Summary VERO SADLER :1950 Visit Date:03/31/2024 Ambulatory Visit Instructions Your Diagnosis Stress incontinence, female Kidney stones Former smoker Aspirin long-term use Your Care Team Attending Physician - BRYAN BELTRÁN, ROSETTA Primary Care Physician - Debbie Arvizu MD Referring Physician - Debbie Arvizu MD This Is Your Medications List Contact prescribing physician if questions or concerns albuterol (Albuterol (Eqv-ProAir HFA)) albuterol (albuterol 0.083% Inh Viviana 3 mL) aspirin (aspirin 81 mg Oral EC Tab) betamethasone-clotrimaz ole topical (betamethasone-clotrima zole Top 0.05%-1% Crm 15 gram) bumetanide (bumetanide 1 mg Tab) carvedilol (carvedilol 25 mg Tab) diclofenac (diclofenac potassium 50 mg oral tablet) hydrALAZINE (hydrALAZINE 100 mg oral tablet) isosorbide dinitrate (isosorbide dinitrate 10 mg Tab) isosorbide dinitrate (isosorbide dinitrate 20 mg Tab) levothyroxine (levothyroxine 100 mcg (0.1 mg) Tab) liothyronine (Cytomel 25 mcg Tab) lisinopril (lisinopril 5 mg Tab) lovastatin (lovastatin 20 mg Tab) ondansetron (ondansetron 4 mg Dis Tab) pantoprazole (Pantoprazole [address] Tab) Procedures Performed Colonoscopy (02/09/2023), Colonoscopy (07/06/2018), CEIOL - Cataract extraction and insertion of intraocular lens, H/O: hysterectomy, Hysterectomy, Procedure, Total hysterectomy. Discharge Vitals Heart Rate (Peripheral) 86 Respiratory Rate 16 Blood Pressure 152/82 Height 165 cm Height 65 in Weight 136.2 kg Weight 300.269 lb BMI 50.03 What to do next You Need to Schedule the Following Appointments Follow Up with BRYAN BELTRÁN, SASKIA SARGENT When: Where: Medications What How Much When Instructions Unchanged albuterol (Albuterol (Eqv-ProAir HFA)) 2 Puffs Inhalation Every 4 hours as needed for Shortness of breath or wheezing Contact prescribing physician if questions or concerns Unchanged albuterol (albuterol 0.083% Inh Viviana 3 mL) 3 Milliliter Nebulized inhalation (aerosol) 4 times a day as needed for Shortness of breath or wheezing Contact prescribing physician if questions or concerns Unchanged aspirin (aspirin 81 mg Oral EC Tab) 1 Tablets By Mouth Every day Contact prescribing physician if questions or concerns Unchanged betamethasone-clotrimaz ole topical (betamethasone-clotrima zole Top 0.05%-1% Crm 15 gram) Contact prescribing physician if questions or concerns Unchanged bumetanide (bumetanide 1 mg Tab) 1 Tablets By Mouth Every day Contact prescribing physician if questions or concerns Unchanged carvedilol (carvedilol 25 mg Tab) 0.5 Tablets By Mouth 2 times a day Contact prescribing physician if questions or concerns Unchanged diclofenac (diclofenac potassium 50 mg oral tablet) 1 Tablets By Mouth Every day Contact prescribing physician if questions or concerns Unchanged hydrALAZINE (hydrALAZINE 100 mg oral tablet) 1 Tablets By Mouth 3 times a day Contact prescribing physician if questions or concerns Unchanged isosorbide dinitrate (isosorbide dinitrate 10 mg Tab) 1 Tablets By Mouth Every day Contact prescribing physician if questions or concerns Unchanged isosorbide dinitrate (isosorbide dinitrate 20 mg Tab) 1 Tablets By Mouth Every day Contact prescribing physician if questions or concerns Unchanged levothyroxine (levothyroxine 100 mcg (0.1 mg) Tab) 1 Tablets By Mouth Every day Contact prescribing physician if questions or concerns Unchanged liothyronine (Cytomel 25 mcg Tab) 1 Tablets By Mouth Every day Contact prescribing physician if questions or concerns Unchanged lisinopril (lisinopril 5 mg Tab) 1 Tablets By Mouth Every day Contact prescribing physician if questions or concerns Unchanged lovastatin (lovastatin 20 mg Tab) 1 Tablets By Mouth Every day Contact prescribing physician if questions or concerns Unchanged ondansetron (ondansetron 4 mg Dis Tab) 1 Tablets By Mouth Every 6 hours as needed for Nausea/Vomiting Contact prescribing physician if questions or concerns Unchanged pantoprazole (Pantoprazole [address] Tab) 1 Tablets By Mouth Every day Contact prescribing physician if questions or concerns Allergies Adhesive Bandage (Hives) Problems Ongoing - Any problem that you are currently receiving treatment for. Aspirin long-term use Atrial fibrillation Bradycardia CAD (coronary artery disease) Chronic kidney disease due to hypertension.. Chronic kidney disease stage 3A. Chronic kidney disease stage 4 Chronic kidney disease, stage 3 Chronic obstructive pulmonary disease Former smoker History of colon polyps History of operative procedure on lumbar spinal structure History of tobacco abuse Hypercholesterolemia Hyperkalemia Hypertension Hypertensive disorder Hypothyroidism Kidney stones Morbid obesity Multiple pulmonary nodules Pulmonary hypertension Spinal stenosis Stress incontinence, female Patient Survey You may receive a (more content not included)... Normal [facility] [place] Urology Office/Clinic Noteon 03-31-2024 Urology Office/Clinic Note Urology Office/Clinic Note Chief Complaint New Pt HPI Staff Vero is a 74 year old female new pt referred by Debbie Arvizu for bladder prolapse. US renal bladder on 04/28/23 findings chronic kidney disease, poss lt sided nephrolithiasis Pt states she has recurrent UTI, she feels like she has one today. Pt had UTI about 10-12 weeks was given Keflex Dysuria: denies Incomplete bladder emptying: yes Hematuria: denies Frequency: 4-5x Urgency: yes Nocturia: 2x Stream: denies hesitancy, denies weak stream Leaking: yes Post void dripping: yes Wearing pads/ Depends: yes wears pads daily, changes 3x a day Urge incontinence: yes Stress incontinence: yes Incontinence without Sensory Awareness: denies Abdominal pain: just pressure no pain Flank pain: pre existing back pain, yes sometimes flank pain Sexual complaints: denies History of Present Illness Tests reviewed: UA, referral records I have reviewed the previous health record information and history for this patient from Dr. Debbie Arvizu . I have reviewed and verified the staff HPI to be accurate for this encounter. Review of Systems PHQ Score Initial Depression Screen Score: 0 SCORE ROS - Provider Constitutional: denies weight loss, denies hot flashes. Eyes: denies eye problems. Gastrointestinal: denies nausea, denies vomiting. Cardiovascular: denies chest pain or angina. Integumentary: no dryness Musculoskeletal: denies musculoskeletal symptoms. ENMT: denies otolaryngeal symptoms. Respiratory: no shortness of breath. Heme/Lymph: denies easy bleeding tendency, denies easy bruising tendency. Psychiatric: no confusion, no anxiety. Genitourinary: See HPI. Physical Exam Vitals & Measurements HR: 86(Peripheral) RR: 16 BP: 152/82 HT: 65 in HT: 165 cm WT: 136.2 kg WT: 300.269 lb BMI: 50.03 General Appearance: alert, no distress, well nourished, well developed female. Assessment/Plan Vero is a 74 year old female new pt referred by Debbie Arvizu for bladder prolapse. 1. Stress incontinence, female (N39.3: Stress incontinence (female) (male)) Hx of open total hysterectomy due to fibroid tumor. No other abdominal surgeries. Hx of vaginal delivery. Leakage onset 10 yrs ago. Mainly JOSE ANTONIO with cough, laugh. Leakage has worsened over the yrs. Wearing thicker poise pads. Stands and loses bladder control. Denies feeling of prolapse. Hasn't been sexually active for yrs. Educated pt on JOSE ANTONIO. Explained Bulkamid vs TVT sling for JOSE ANTONIO. Recommended trying Bulkamid first as this is less invasive. Educational pamphlets provided. Require cysto and pelvic exam to assess for leakage to ensure candidacy for Bulkamid. Pt agrees to proceed. Will schedule cysto with pelvic exam to assess for JOSE ANTONIO. The risks and benefits for cystoscopy have been discussed. The risks include bleeding, infection, and irritation of the bladder and urinary channel, among others. The patient, after being informed of procedural details and after questions have been answered, wishes to proceed. Full informed consent has been obtained. Will order Local anesthesia. 2. Kidney stones (N20.0: Calculus of kidney) US renal bladder 04/28/23 - No hydro. 4 mm LMP lesion and 9 mm LIP lesion. Most likely renal stones. 3. Former smoker (Z87.891: Personal history of nicotine dependence) 49 yrs, started at 17 yo stopped in 2015. Increased risk for UCC. No gross hematuria. 4. Aspirin long-term use (Z79.82: [facility] (current) use of aspirin) ASA. No BTs. Has pacemaker. Hx of ME but was asx, not sure when it happened. Patient presented today with leakage of urine when she coughs, sneezes with multiple pads throughout the day. I discussed with her that with stress urinary incontinence she would benefit from a cystoscopy, pelvic exam which we will schedule. We will then proceed with cystoscopy, Bulkamid injection. She understands this and we will proceed as such. Follow-up With When Contact Information BRYAN BELTRÁN, SASKIA SARGENT Additional Instructions: schedule cysto with pelvic exam to assess for JOSE ANTONIO Patient Education Cystoscopy Injection Treatments for Urinary Incontinence Elvi Martinez, personally scribed for Dr. Rosetta Adams on 03/31/2024 15:10:07. . Portions of this record may have been created with voice recognition artificial intelligence software, specifically [employer], [employer] and or [employer]. Substitutions may have occurred due to the inherent limitations of voice recognition and artificial intelligence software. Documentation recorded by the scribe, Elvi Posadas, accurately reflects the services(s) I performed and decisions made by me. Authenticated by Dr. Adams on 03/31/2024 15:12:01. Problem List/Past Medical History Ongoing Aspirin long-term use Atrial fibrillation Bradycardia CAD (coronary artery disease) Chronic kidney disease due t (more content not included)... Normal [facility] [place] Comment on above: Result Comment: Elec tronically Signed By: BRYAN BELTRÁN, ROSETTA\.br\Date and Time Signed: 03/31/24 15:13 EST\.br\Electronically Co-Signed By: Elvi Posadas P\.br\Date and Time Co-Signed: 03/31/24 15:10 EST\.br\Electronically Co-Signed By: Elvi Posadas P\.br\Date and Time Co-Signed: 03/31/24 15:10 EST Office Visiton 01-26-2024 Follow-up visit [id number] Brian Sadler se 1950 F Date Provider Department Center 01/26/2024 Jj-TATO SALCIDO CARD [facility] Family History Problem Relation Age of Onset Other Mother Coronary artery disease Mother Other Mother Other Mother Other Father Hypertension Father Hyperlipidemia Father Other Daughter Family Status - Relation Status Age at Mother Father Daughter Level of Service:66817 SC OFFICE/OUTPATIENT ESTABLISHED LOW MDM 20 MIN Normal [facility] MR LUMBAR SPINE WO CONTRASTo n 11-23-2023 [...] foraminal narrowing. Electronically signed: Arnol Cutler MD. [facility] Comment on above: Order Comment: ORDER IN EPIC NURSNOTEon 11-23-2023 SANDIE Coughlin from [employer] prepped pacemaker. Patient verbalizes no issues with device. Monitor hooked up for continuous patient monitoring throughout the scan. Normal [facility] Office Visiton 10-26-2023 Follow-up visit [id number] Brian Sadler se 1950 F Date Provider Department Center 10/26/2023 241-JOSEY KWOK LEEANN [place] Family History Problem Relation Age of Onset Other Mother Coronary artery disease Mother Other Mother Other Mother Other Father Hypertension Father Hyperlipidemia Father Other Daughter Family Status - Relation Status Age at Mother Father Daughter Level of Service:45978 SC OFFICE/OUTPATIENT ESTABLISHED LOW MDM 20 MIN Normal [facility] Office Visiton 07-20-2023 Follow-up visit [id number] Brian Sadler se 1950 F Date Provider Department Center 07/20/2023 11230-WDWTONOLLIE FELTON [facility] NEPHRO Comprehensiv Family History Problem Relation Age of Onset Other Mother Coronary artery disease Mother Other Mother Other Mother Other Father Hypertension Father Hyperlipidemia Father Other Daughter Family Status - Relation Status Age at Mother Father Daughter Level of Service:47016 SC OFFICE/OUTPATIENT ESTABLISHED LOW MDM 20 MIN Reason for Visit and Comments: Follow-up [121705] Normal [facility] CREATININE, URINE, RANDOMon 07-09-2023 Creatinine (U) [Mass/Vol] 142.0 mg/dL Normal 26-299 [facility] Comment on above: Performed By: #### L [id number] #### [facility] ([facility]) [address] [place] [address] Performed By: #### L [id number] ####[facility] ([facility])[address] [place] [address] Follow-Upon 07-09-2023 Follow-Up [id number] Brian Sadler se 1950 F Date Provider Department Eleanor 07/09/2023 JOSE ANGEL LEE MP PAIN Medical [facility] Family History Problem Relation Age of Onset Other Mother Coronary artery disease Mother Other Mother Other Mother Other Father Hypertension Father Hyperlipidemia Father Other Daughter Family Status - Relation Status Age at Mother Father Daughter Level of Service:99632 SC OFFICE/OUTPATIENT ESTABLISHED LOW MDM 20 MIN Reason for Visit and Comments: Follow-up [885894] - F/U S/P TFESI S1 - 30% pain relief Normal [facility] MICROALBUMIN, URINE, RANDOMo n 07-09-2023 Albumin DL <= 20 mg/L (U) [Mass/Vol] 2.3 mg/dL Normal [facility] Comment on above: Performed By: #### L [id number] ####[facility] [place] [address] MICROALBUMIN/CREATI NINE (MG/G) IN URINE 16.2 mg/g Creat Normal 0.0-30.0 [facility] Comment on above: Performed By: #### L [id number] ####[facility] ([facility])[address] [place] [address] PROTEIN, URINE, RANDOMon Protein (U) [Mass/Vol] 16.6 mg/dL Normal [facility] Comment on above: Result Comment: Ther e are no established reference values for random urine specimens. Performed By: #### L [id number] #### [facility] ([facility]) [address] [place] [address] RENAL FUNCTION PANELon 07-08 Albumin [Mass/Vol] 3.9 g/dL Normal 3.5-5.7 [facility] Comment on above: Performed By: #### L [id number] ####[facility] ([facility])[address] [place] [address] Anion gap [Moles/Vol] 11 mmol/L Normal 7-20 [facility] Comment on above: Performed By: #### L [id number] ####[facility] ([facility])[address] [place] [address] CALCIUM (MG/DL) CORRECTED FOR ALBUMIN IN SER/PLAS 9.18 mg/dL Normal [facility] Comment on above: Performed By: #### L [id number] ####[facility] ([facility] [place] [address] Calcium [Mass/Vol] 9.1 mg/dL Normal 8.6-10.3 [facility] Comment on above: Performed By: #### L AB19 ####[facility] [place] [address] Chloride [Moles/Vol] 109 mmol/L High 98-107 [facility] Comment on above: Performed By: #### L AB19 ####[facility] ([facility])[address] [place] [address] CO2 [Moles/Vol] 25 mmol/L Normal 21-31 [facility] Comment on above: Performed By: #### L AB19 ####[facility] ([facility])[address] [place] [address] Creatinine [Mass/Vol] 2.24 mg/dL High 0.60-1.20 [facility] Comment on above: Performed By: #### L AB19 ####[facility] ([facility])[address] [place] [address] FASTING? UNKNOWN Normal [facility] Comment on above: Performed By: #### L AB19 ####[facility] ([facility])[address] [place] [address] GLOMERULAR FILTRATION RATE ML/MIN/1.73 SQ M.PREDICTED 22.7 mL/min/1.73m*2 Low >60.0 [facility] Comment on above: Result Comment: [...] of individuals. Performed By: #### L AB19 ####[facility] ([facility] [place] [address] Glucose [Mass/Vol] 83 mg/dL Normal 70-100 [facility] Comment on above: Performed By: #### L [id number] ####[facility] ([facility])[address] [place] [address] Magnesium [Mass/Vol] 3.7 mg/dL Normal 2.5-5.0 [facility] Comment on above: Performed By: #### L AB19 ####[facility] ([facility] [place] [address] Potassium [Moles/Vol] 5.8 mmol/L High 3.5-5.1 [facility] Comment on above: Performed By: #### L AB19 ####[facility] ([facility] [place] [address] Sodium [Moles/Vol] 139 mmol/L Normal 136-145 [facility] Comment on above: Performed By: #### L AB19 ####[facility] ([facility] [place] [address] Urea nitrogen [Mass/Vol] 46 mg/dL High 7-25 [facility] Comment on above: Performed By: #### L [id number] ####[facility] ([facility])[address] [place] [address] UREA NITROGEN/CREATININE (MASS RATIO) IN SER/PLAS 20.5 Normal [facility] Comment on above: Performed By: #### L AB19 ####[facility] ([facility])[address] [place] [address] TSHon 07-09-2023 THYROTROPIN (MIU/L) IN SER/PLAS BY DETECTION LIMIT <= 0.05 MIU/L 0.03 mIU/L Low 0.34-5.60 [facility] Comment on above: Performed By: #### L [id number] #### [facility] ([facility]) [address] [place] [address] Orders Onlyon 06-22-2023 Orders Only [id number] Brian Sadler se 1950 F Date Provider Department Center 06/22/2023 EMMANUEL BECK CCC NEPHRO Comprehensiv Family History Problem Relation Age of Onset Other Mother Coronary artery disease Mother Other Mother Other Mother Other Father Hypertension Father Hyperlipidemia Father Other Daughter Family Status - Relation Status Age at Mother Father Daughter Normal [facility] ANESon 05-31-2023 ANES --- Attestation signed by [...] kidney disease COPD (chronic obstructive pulmonary disease) [place] Hypertension Myocardial infarction [place] Obstructive sleep apnea 10/02/2022 SOBIA=17.7 events/hour; Pranav SaO2=76%; Kgxxdt=246.0 lbs; BMI=52.7 kg/m2, Home Sleep Apnea Testing on 09/25/2022 at [facility] Principle problems: Patient Active Problem List Diagnosis Date Noted 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 Symptomatic bradycardia 01/01/2023 Other secondary pulmonary hypertension ([facility] 12/15/2022 KATIE on CPAP 12/15/2022 Nonsustained paroxysmal ventricular tachycardia ([facility] 11/30/2022 A-fib ([facility] 04/21/2022 Spinal stenosis of lumbar region with neurogenic claudication 01/30/2022 Lower abdominal pain 01/30/2022 Spondylosis of lumbosacral region without myelopathy or radiculopathy 01/30/2022 Essential hypertension 01/25/2020 Chest pain 07/27/2016 Dyspnea 07/27/2016 Edema 07/27/2016 Fatigue 07/27/2016 Lightheadedness 07/27/2016 Obstructive sleep apnea 10/02/2022 VT (ventricular tachycardia) ([facility]) 04/29/2022 Clinical trial exam 04/23/2022 Allergies: Allergies Allergen Reactions Penicillins Other Yeast infection [employer]IP GAUGER/Current Medications: (Not in a hospital admission) Current [...] prevent worse bloating. 479 g 3 omega 6-xao-pww-fish oil 350 mg-235 mg- 90 mg-597 mg [...] included)... Normal [facility] HPon 05-31-2023 History Of Present Illness Vero Sadler is a 73 y.o. female presenting with low back pain Past Medical History She has a past medical history of Abnormal ECG, Adverse effect of anesthesia, Arthritis, Chronic kidney disease, COPD (chronic obstructive pulmonary disease) ([facility]), Hypertension, Myocardial infarction ([facility]), and Obstructive sleep apnea (10/02/2022). [...] Sedation: MAC Attending Physician: Dr. Dario Calderon Historian Research Assistant: Nancy Prado, Fellow Procedure Details Informed consent [...] not included)... Normal [facility] HP --- Attestation signed by Jose Angel Meehan [...] kidney disease, COPD (chronic obstructive pulmonary disease) ([facility]), Hypertension, Myocardial infarction ([facility]), and Obstructive sleep apnea (10/02/2022). [...] Sedation: MAC Attending Physician: Dr. Dario Calderon Historian Research Assistant: Nancy Prado, Fellow Procedure Details Informed consent [...] Prep for Procedureon 024 Prep for Procedure [id number] Brian Sadler se 1950 F Date Provider Department Center 05/24/2023 1629-POONAM ROQUE MP PROC Medical Pavi Family History Problem Relation Age of Onset Other Mother Coronary artery disease Mother Other Mother Other Mother Other Father Hypertension Father Hyperlipidemia Father Other Daughter Family Status - Relation Status Age at Mother Father Daughter Normal [facility] 36on 04-22-2023 36 Patient contacted an d [...] sometimes takes 48 -72 hours for the doctors/RULING MACHINE FEEDER's to return messages. Apologized that we were not able to meet her needs and voiced that we understand her feelings and decision not to utilized services at this time [facility] 36on 04-19-2023 36 Vero has called, stating she is not feeling well, in Re: recurrent diarrhea /not feeling well and she mention a breathing test they may not work, she is looking for answers to why she is not feeling well in a lot of pain, please advise with patient [phone] ???This phone message was created by the ambulatory float staff. If you need director sales support follow up regarding this patient, please make your appropriate clinic staff member aware, Thank you??? Normal [facility] Telephoneon 04-19-2023 Telephone [id number] Brian Sadler se 1950 Provider Department Center 04/19/2023 [id number]-AXTAXCLJOKALPESH KUHN GI Medical Pavi Family History Problem Relation Age of Onset Other Mother Coronary artery disease Mother Other Mother Other Mother Other Father Hypertension Father Hyperlipidemia Father Other Daughter Family Status - Relation Status Age at Mother Father Daughter Normal [facility] Prep for Procedureon 024 Prep for Procedure [id number] Brian Sadler se 1950 F Date Provider Department Center 04/12/2023 1611-LEENA MASON MP PROC Medical Pavi Family History Problem Relation Age of Onset Other Mother Coronary artery disease Mother Other Mother Other Mother Other Father Hypertension Father Hyperlipidemia Father Other Daughter Family Status - Relation Status Age at Mother Father Daughter Normal [facility] Prep for Procedureon 024 Prep for Procedure [id number] Brian Sadler se M 1950 Provider Department Center 03/31/2023 JOSE ANGEL LEE MP PROC Medical Pavi Family History Problem Relation Age of Onset Other Mother Coronary artery disease Mother Other Mother Other Mother Other Father Hypertension Father Hyperlipidemia Father Other Daughter Family Status - Relation Status Age at Mother Father Daughter Normal [facility] Follow-Upon 03-26-2023 Follow-Up [id number] Brian Sadler se 1950 Provider Department Center 03/26/2023 JOSE ANGEL LEE MP PAIN Medical Pavi Family History Problem Relation Age of Onset Other Mother Coronary artery disease Mother Other Mother Other Mother Other Father Hypertension Father Hyperlipidemia Father Other Daughter Family Status - Relation Status Age at Mother Father Daughter Level of Service:00529 SC OFFICE/OUTPATIENT ESTABLISHED LOW MDM 20 MIN () Reason for Visit and Comments: Follow-up [[id number]] - Physical Therapy only did a couple days of PT because of COPD and chest hurting Normal [facility] Office Visiton 03-23-2023 Follow-up visit [id number] Brian Sadler se M 1950 Provider Department Center 03/23/2023 241-JOSEY KWOK LEEANN Reyes Family History Problem Relation Age of Onset Other Mother Coronary artery disease Mother Other Mother Other Mother Other Father Hypertension Father Hyperlipidemia Father Other Daughter Family Status - Relation Status Age at Mother Father Daughter Level of Service:21936 SC OFFICE/OUTPATIENT ESTABLISHED LOW MDM 20 MIN Normal [facility] Letter (Out)on 02-23-2023 Letter (Out) [id number] Brian Sadler se 1950 Provider Department Center 02/23/2023 Severiano-NANCY PRADO MP GI Medical Pavi Family History Problem Relation Age of Onset Other Mother Coronary artery disease Mother Other Mother Other Mother Other Father Hypertension Father Hyperlipidemia Father Other Daughter Family Status - Relation Status Age at Mother Father Daughter Normal [facility] 36on 02-22-2023 36 Spoke with patient w ho voiced understanding not to complete the MRI at this time due to kidneys. Advised that the patient contact the Endoscopy department to review questions regarding HBT. [facility] 36 ----- Message from Natalia [...] we can do the MRE. Thank you. [facility] Orders Onlyon 2023 Orders Only [id number] Brian Sadler se 1950 Date Provider Department Center 2023 [id number]-FEHWHIIAEPRESTON KUHN*NISHA GI Medical Pavi Family History Problem Relation Age of Onset Other Mother Coronary artery disease Mother Other Mother Other Mother Other Father Hypertension Father Hyperlipidemia Father Other Daughter Family Status - Relation Status Age at Mother Father Daughter [facility] 36on 02-17-2023 36 Instruction sheet fo r HBT and US order mailed to the patient. I scanned the stool study results into patients chart and sent them into Tierra's basket. [facility] 36 ----- Message from Natalia Kuhn NP sent at 02/16/2023 7:59 PM EST ----- Gabe Esteves, Do you mind helping mailing her a Hydrogen Breath Test instruction packet and Gall bladder US orders to her house. Do you mind also calling [facility] and requesting all her stool study results from dec or jan. They never faxed us any results. They are important so I can further help her. Thank you so much. I really appreciate your help with this. [facility] Orders Onlyon 02-17-2023 Orders Only [id number] Brian Sadler se 1950 Date Provider Department Center 02/17/2023 [id number], HISTORICAL MP GI Medical Pavi Family History Problem Relation Age of Onset Other Mother Coronary artery disease Mother Other Mother Other Mother Other Father Hypertension Father Hyperlipidemia Father Other Daughter Family Status - Relation Status Age at Mother Father Daughter Normal [facility] Telemedicineon 02-16-2023 Telemedicine [id number] Brian Sadler se 1950 F Date Provider Department Eleanor 02/16/2023 [id number]-ZVSKWNZBCPRESTON KUHN*MP GI Medical Pavi Family History Problem Relation Age of Onset Other Mother Coronary artery disease Mother Other Mother Other Mother Other Father Hypertension Father Hyperlipidemia Father Other Daughter Family Status - Relation Status Age at Mother Father Daughter Level of Service:07957 SC OFFICE/OUTPATIENT ESTABLISHED HIGH MDM 40-54 MIN Normal [facility] CBC AUTO DIFFon 07-17-2022 BASO # 0.0 103/ul Normal 0.0-0.1 [facility] Comment on above: Performed By: #### C BC #### [facility] [address] [place] [address] Dr. Eusebia Moralez Basophils/100 WBC (Bld) 0.6 % Normal 0.2-2.0 [facility] Comment on above: Performed By: #### C BC #### [facility] [address] [place] [address] Dr. Eusebia Moralez EO # 0.2 103/ul Normal 0.0-0.7 [facility] Comment on above: Performed By: #### C BC #### [facility] [address] [place] [address] Dr. Eusebia Moralez Eosinophils/100 WBC (Bld) 2.2 % Normal 0.9-7.0 [facility] Comment on above: Performed By: #### C BC #### [facility] [address] [address] [address] Eusebia Moralez Erythrocyte distribution width (RBC) [Ratio] 13.0 % Normal 11.0-15.0 [facility] Comment on above: Performed By: #### C BC #### [facility] [address] [place] [address] Dr. Eusebia Moralez Hematocrit (Bld) [Volume fraction] 40.5 % Normal 36.0-48.0 [facility] Comment on above: Performed By: #### C BC #### [facility] [address] [place] [address] Dr. Eusebia Moralez Hemoglobin (Bld) [Mass/Vol] 12.7 g/dL Normal 12.0-16.0 [facility] Comment on above: Performed By: #### C BC #### [facility] [address] [place] [address] Dr. Eusebia Moralez IG # 0.02 10e3/ul Normal 0.00-0.03 [facility] Comment on above: Performed By: #### C BC #### [facility] [address] [place] [address] Dr. Eusebia Moralez IG % 0.3 % Normal 0.0-0.5 [facility] Comment on above: Performed By: #### C BC #### [facility] [address] [place] [address] Dr. Eusebia Moralez LYMPH # 1.4 103/ul Normal 1.2-3.8 [facility] Comment on above: Performed By: #### C BC #### [facility] [address] [place] [address] Dr. Eusebia Moralez Lymphocytes/100 WBC (Bld) 19.9 % Critically low 20.5-60.0 [facility] Comment on above: Performed By: #### C BC #### [facility] [address] [place] [address] Dr. Eusebia Moralez MANUAL DIFF REQ NO Normal [facility] Comment on above: Performed By: #### C BC #### [facility] [address] [place] [address] Dr. Eusebia Moralez MCH (RBC) [Entitic mass] 29.1 pg Normal 26.7-34.0 [facility] Comment on above: Performed By: #### C BC #### [facility] [address] [place] [address] Dr. Eusebia Moralez MCHC (RBC) [Mass/Vol] 31.4 g/dL Normal 29.9-35.2 [facility] Comment on above: Performed By: #### C BC #### [facility] [address] [place] [address] Dr. Eusebia Moralez MCV (RBC) [Entitic vol] 92.9 fL Normal 81.0-99.0 [facility] Comment on above: Performed By: #### C BC #### [facility] [address] [place] [address] Dr. Eusebia Moralez MONO # 0.7 103/ul Normal 0.3-0.8 [facility] Comment on above: Performed By: #### C BC #### [facility] [address] [place] [address] Dr. Eusebia Moralez Monocytes/100 WBC (Bld) 9.4 % Normal 1.7-12.0 [facility] Comment on above: Performed By: #### C BC #### [facility] [address] [place] [address] Dr. Eusebia Moralez NEUT # 4.7 103/ul Normal 1.4-6.5 [facility] Comment on above: Performed By: #### C BC #### [facility] [address] [place] [address] Dr. Eusebia Moralez Neutrophils/100 WBC (Bld) 67.6 % Normal 43.0-75.0 [facility] Comment on above: Performed By: #### C BC #### [facility] [address] [place] [address] Dr. Eusebia Moralez Platelet mean volume (Bld) [Entitic vol] 9.9 fL Normal 9.5-13.5 [facility] Comment on above: Performed By: #### C BC #### [facility] [address] [place] [address] Dr. Eusebia Moralez PLT 218 103/ul Normal 150-450 [facility] Comment on above: Performed By: #### C BC #### [facility] [address] [place] [address] Dr. Eusebia Moralez RBC 4.36 106/ul Normal 4.20-5.40 [facility] Comment on above: Performed By: #### C BC #### [facility] [address] [place] [address] Dr. Eusebia Moralez WBC 6.9 103/ul Normal 4.0-11.0 [facility] Comment on above: Performed By: #### C BC #### [facility] [address] [address] [address] Eusebia Moralez PROF CHEM 8 (BAS METB)on Anion gap [Moles/Vol] 9.0 mmol/L Normal [facility] Comment on above: Performed By: #### B MP #### [facility] [address] [address] [address] Eusebia Moralez Calcium [Mass/Vol] 9.2 mg/dL Normal 8.5-10.1 [facility] Comment on above: Performed By: #### B MP #### [facility] [address] [address] [address] Eusebia Moralez Chloride [Moles/Vol] 103 mmol/L Normal 98-107 [facility] Comment on above: Performed By: #### B MP #### [facility] [address] [place] [address] Dr. Eusebia Moralez CO2 [Moles/Vol] 32.9 mmol/L Critically high 21.0-32.0 [facility] Comment on above: Performed By: #### B MP #### [facility] [address] [place] [address] Dr. Eusebia Moralez Creatinine [Mass/Vol] 1.74 mg/dL Critically high 0.55-1.02 [facility] Comment on above: Performed By: #### B MP #### [facility] [address] [address] [address] Eusebia Moralez EGFR-AF MICRONESIAN 35 mL/min/1.73m2 Critically low >=60 [facility] Comment on above: Performed By: #### B MP #### [facility] [address] [address] [address] Eusebia Moralez EGFR-NON AF MICRONESIAN 29 mL/min/1.73m2 Critically low >=60 [facility] Comment on above: Performed By: #### B MP #### [facility] [address] [address] [address] Eusebia Moralez Glucose [Mass/Vol] 101 mg/dL Normal 74-106 [facility] Comment on above: Performed By: #### B MP #### [facility] [address] [address] [address] Eusebia Moralez Potassium [Moles/Vol] 3.9 mmol/L Normal 3.5-5.1 [facility] Comment on above: Performed By: #### B MP #### [facility] [address] [address] [address] Eusebia Moralez Sodium [Moles/Vol] 141 mmol/L Normal 136-145 [facility] Comment on above: Performed By: #### B MP #### [facility] [address] [address] [address] Eusebia Moralez Urea nitrogen [Mass/Vol] 34.0 mg/dL Critically high 7.0-18.0 [facility] Comment on above: Performed By: #### B MP #### [facility] [address] [address] [address] Eusebia Moralez Urea nitrogen/Creatinine [Mass ratio] 19.5 mg/mg Normal [facility] Comment on above: Performed By: #### B MP #### [facility] [address] [address] [address] Eusebia Moralez CBC AUTO DIFFon 07-02-2022 BASO # 0.1 103/ul Normal 0.0-0.1 [facility] Comment on above: Performed By: #### C BC ####[facility] [address] [address]DrRadha Moralez Basophils/100 WBC (Bld) 0.7 % Normal 0.2-2.0 [facility] Comment on above: Performed By: #### C BC ####[facility] [address] [id number]. Eusebia Moralez EO # 0.1 103/ul Normal 0.0-0.7 [facility] Comment on above: Performed By: #### C BC ####[facility] [address] [id number] Moralez Eosinophils/100 WBC (Bld) 1.8 % Normal 0.9-7.0 [facility] Comment on above: Performed By: #### C BC ####[facility] [address] [address]Dr. Eusebia Moralez Erythrocyte distribution width (RBC) [Ratio] 13.1 % Normal 11.0-15.0 [facility] Comment on above: Performed By: #### C BC ####[facility] [address] [address]Dr. Eusebia Moralez Hematocrit (Bld) [Volume fraction] 40.2 % Normal 36.0-48.0 [facility] Comment on above: Performed By: #### C BC ####[facility] Oks[address] [place], [place] [address]Dr. Eusebia Moralez Hemoglobin (Bld) [Mass/Vol] 12.5 g/dL Normal 12.0-16.0 [facility] Comment on above: Performed By: #### C BC ####[facility] [address] [place], [place] [address]Dr. Eusebia Moralez IG # 0.01 10e3/ul Normal 0.00-0.03 [facility] Comment on above: Performed By: #### C BC ####[facility] Gangukgi[address] [place], [place] [address]Dr. Eusebia Moralez IG % 0.1 % Normal 0.0-0.5 [facility] Comment on above: Performed By: #### C BC ####[facility] Bcch[address] [place], [place] [address]Dr. Eusebia Moralez LYMPH # 1.5 103/ul Normal 1.2-3.8 [facility] Comment on above: Performed By: #### C BC ####[facility] Edlot[address] [place], [place] [address]Dr. Eusebia Moralez Lymphocytes/100 WBC (Bld) 22.6 % Normal 20.5-60.0 [facility] Comment on above: Performed By: #### C BC ####[facility] Akyrxf[address] [place], [place] [address]Dr. Eusebia Moralez MANUAL DIFF REQ NO Normal [facility] Comment on above: Performed By: #### C BC ####[facility] [address] [id number]. Eusebia Kirt MCH (RBC) [Entitic mass] 29.3 pg Normal 26.7-34.0 [facility] Comment on above: Performed By: #### C BC ####[facility] [address] [id number]. Eusebia Kirt MCHC (RBC) [Mass/Vol] 31.1 g/dL Normal 29.9-35.2 [facility] Comment on above: Performed By: #### C BC ####[facility] [address] [address]Dr. Lisadenise Moralez MCV (RBC) [Entitic vol] 94.4 fL Normal 81.0-99.0 [facility] Comment on above: Performed By: #### C BC ####[facility] Qhw[address]ixecsy[address] [place], [place] [address]Dr. Eusebia Moralez MONO # 0.6 103/ul Normal 0.3-0.8 [facility] Comment on above: Performed By: #### C BC ####[facility] L[address] [place], [place] [address]Dr. Eusebia Moralez Monocytes/100 WBC (Bld) 9.1 % Normal 1.7-12.0 [facility] Comment on above: Performed By: #### C BC ####[facility] Drjzkaxbbj[address] [place], [place] [address]Dr. Eusebia Moralez NEUT # 4.4 103/ul Normal 1.4-6.5 [facility] Comment on above: Performed By: #### C BC ####[facility] [address] [place], [place] [id number] Moralez Neutrophils/100 WBC (Bld) 65.7 % Normal 43.0-75.0 [facility] Comment on above: Performed By: #### C BC ####[facility] I[address] [place], [place] [id number] Moralez Platelet mean volume (Bld) [Entitic vol] 9.6 fL Normal 9.5-13.5 [facility] Comment on above: Performed By: #### C BC ####[facility] [address] [address]Dr. Lisadenise Kirt PLT 204 103/ul Normal 150-450 [facility] Comment on above: Performed By: #### C BC ####[facility] [address] [id number]. Eusebia Moralez RBC 4.26 106/ul Normal 4.20-5.40 [facility] Comment on above: Performed By: #### C BC ####[facility] [address] [id number]. Eusebia Kirt WBC 6.7 103/ul Normal 4.0-11.0 [facility] Comment on above: Performed By: #### C BC ####[facility] [address] [address]Dr. Eusebia Moralez PROF CHEM 8 (BAS METB)on Anion gap [Moles/Vol] 11.2 mmol/L Normal [facility] Comment on above: Performed By: #### B MP ####[facility] V[address] [place], [place] [address]Dr. Eusebia Moralez Calcium [Mass/Vol] 9.2 mg/dL Normal 8.5-10.1 [facility] Comment on above: Performed By: #### B MP ####[facility] [address] [address]Dr. Eusebia Moralez Chloride [Moles/Vol] 109 mmol/L Critically high 98-107 [facility] Comment on above: Performed By: #### B MP ####[facility] [address] [place], [place] [id number]. Eusebia Moralez CO2 [Moles/Vol] 27.6 mmol/L Normal 21.0-32.0 [facility] Comment on above: Performed By: #### B MP ####[facility] Qvexk[address] [place], [place] [address]Dr. Eusebia Moralez Creatinine [Mass/Vol] 1.49 mg/dL Critically high 0.55-1.02 [facility] Comment on above: Performed By: #### B MP ####[facility] [address] [address]Dr. Eusebia Moralez EGFR-AF MICRONESIAN 42 mL/min/1.73m2 Critically low >=60 [facility] Comment on above: Performed By: #### B MP ####[facility] [address] [address]Dr. Eusebia Moralez EGFR-NON AF MICRONESIAN 34 mL/min/1.73m2 Critically low >=60 [facility] Comment on above: Performed By: #### B MP ####[facility] [address] [address]Dr. Eusebia Moralez Glucose [Mass/Vol] 89 mg/dL Normal 74-106 [facility] Comment on above: Performed By: #### B MP ####[facility] A[address] [place], [place] [address]Dr. Eusebia Moralez Potassium [Moles/Vol] 4.8 mmol/L Normal 3.5-5.1 [facility] Comment on above: Performed By: #### B MP ####[facility] V[address] [place], [place] [address]Dr. Eusebia Moralez Sodium [Moles/Vol] 143 mmol/L Normal 136-145 [facility] Comment on above: Performed By: #### B MP ####[facility] F[address] [place], [place] [address]Dr. Eusebia Moralez Urea nitrogen [Mass/Vol] 27.0 mg/dL Critically high 7.0-18.0 [facility] Comment on above: Performed By: #### B MP ####[facility] I[address] [place], [place] [address]Dr. Eusebia Moralez Urea nitrogen/Creatinine [Mass ratio] 18.1 mg/mg Normal [facility] Comment on above: Performed By: #### B MP ####[facility] [address] [id number]. Eusebia Moralez CT LUNG CANCER SCREENINGon 1 [...] AMBAR MOON Date: 2022-02-24 08:15 Normal [facility] PROF CHEM 8 (BAS METB)on Anion gap [Moles/Vol] 9.7 mmol/L Normal [facility] Comment on above: Performed By: #### B MP #### [facility] [address] [place] [address] Dr. Eusebia Moralez Calcium [Mass/Vol] 8.8 mg/dL Normal 8.5-10.1 [facility] Comment on above: Performed By: #### B MP #### [facility] [address] [address] [address] Eusebia Moralez Chloride [Moles/Vol] 107 mmol/L Normal 98-107 [facility] Comment on above: Performed By: #### B MP #### [facility] [address] [address] [address] Eusebia Moralez CO2 [Moles/Vol] 29.5 mmol/L Normal 21.0-32.0 [facility] Comment on above: Performed By: #### B MP #### [facility] [address] [address] [address] Eusebia Moralez Creatinine [Mass/Vol] 1.83 mg/dL Critically high 0.55-1.02 [facility] Comment on above: Performed By: #### B MP #### [facility] [address] [address] [address] Eusebia Moralez EGFR-AF MICRONESIAN 33 mL/min/1.73m2 Critically low >=60 [facility] Comment on above: Performed By: #### B MP #### [facility] [address] [address] [address] Eusebia Moralez EGFR-NON AF MICRONESIAN 27 mL/min/1.73m2 Critically low >=60 [facility] Comment on above: Performed By: #### B MP #### [facility] [address] [address] [address] Eusebia Moralez Glucose [Mass/Vol] 87 mg/dL Normal 74-106 [facility] Comment on above: Performed By: #### B MP #### [facility] [address] [address] [address] Eusebia Moralez Potassium [Moles/Vol] 5.2 mmol/L Critically high 3.5-5.1 [facility] Comment on above: Performed By: #### B MP #### [facility] [address] [address] [address] Eusebia Moralez Sodium [Moles/Vol] 141 mmol/L Normal 136-145 [facility] Comment on above: Performed By: #### B MP #### [facility] [address] [address] [address] Eusebia Moralez Urea nitrogen [Mass/Vol] 37.0 mg/dL Critically high 7.0-18.0 [facility] Comment on above: Performed By: #### B MP #### [facility] [address] [address] [address] Eusebia Moralez Urea nitrogen/Creatinine [Mass ratio] 20.2 mg/mg Normal [facility] Comment on above: Performed By: #### B #### [facility] [address] [place] [address] Dr. Eusebia Moralez NM STRESS/REST MULTIon 01-23 NM STRESS/REST MULTI Patient: VERO SADLER Exam Date: 01/23/2022 : 1950 Gender:F Ordering : DR DEBBIE ARVIZU . Admission #: [id number] Family : Order #: [id number] CLICK HERE TO VIEW EXAM RADIOLOGY REPORT [...] Harrison MD on 01/26/2022 at 13:45 Normal [facility] ECHOCARDIO M/2D COMPLETEon 1 03-23-2021 ECHOCARDIO M/2D COMPLETE Patient: VERO SADLER Exam Date: 01/21/2022 : 1950 Gender:F Ordering : DR DEBBIE ARVIZU . Admission #: [id number] Family : Order #: [id number] CLICK HERE TO VIEW EXAM ECHOCARDIOGRAM REPORT [...] Tato Salcido M.D. on 01/21/2022 at 09:17 [facility] XR DEXA BONE DENSITYon 01-21 XR DEXA [...] authenticated by: RAJI HARRISON Date: 2022-01-21 10:03 [facility] BNPon 01-14-2022 Natriuretic peptide B (Bld) [Mass/Vol] 834.0 pg/mL Normal <=900.0 [facility] Comment on above: Performed By: #### T SH, BNP, CMP, T7, LIPID ####[facility] [address] [address]Dr. Eusebia Moralez CBC AUTO DIFFon 01-14-2022 BASO # 0.0 103/ul Normal 0.0-0.1 [facility] Comment on above: Performed By: #### C BC #### [facility] [address] [address] [address] Eusebia Moralez Basophils/100 WBC (Bld) 0.4 % Normal 0.2-2.0 [facility] Comment on above: Performed By: #### C BC #### [facility] [address] [place] [address] Dr. Eusebia Moralez EO # 0.1 103/ul Normal 0.0-0.7 [facility] Comment on above: Performed By: #### C BC #### [facility] [address] [place] [address] Dr. Eusebia Moralez Eosinophils/100 WBC (Bld) 1.1 % Normal 0.9-7.0 [facility] Comment on above: Performed By: #### C BC #### [facility] [address] [place] [address] Dr. Eusebia Moralez Erythrocyte distribution width (RBC) [Ratio] 15.0 % Normal 11.0-15.0 [facility] Comment on above: Performed By: #### C BC #### [facility] [address] [place] [address] Dr. Eusebia Moralez Hematocrit (Bld) [Volume fraction] 39.6 % Normal 36.0-48.0 [facility] Comment on above: Performed By: #### C BC #### [facility] [address] [place] [address] Dr. Eusebia Moralez Hemoglobin (Bld) [Mass/Vol] 12.4 g/dL Normal 12.0-16.0 [facility] Comment on above: Performed By: #### C BC #### [facility] [address] [place] [address] Dr. Eusebia Moralez IG # 0.02 10e3/ul Normal 0.00-0.03 [facility] Comment on above: Performed By: #### C BC #### [facility] [address] [place] [address] Dr. Eusebia Moralez IG % 0.3 % Normal 0.0-0.5 [facility] Comment on above: Performed By: #### C BC #### [facility] [address] [place] [address] Dr. Eusebia Moralez LYMPH # 1.3 103/ul Normal 1.2-3.8 [facility] Comment on above: Performed By: #### C BC #### [facility] [address] [place] [address] Dr. Eusbeia Moralez Lymphocytes/100 WBC (Bld) 17.9 % Critically low 20.5-60.0 [facility] Comment on above: Performed By: #### C BC #### [facility] [address] [place] [address] Dr. Eusebia Moralez MANUAL DIFF REQ NO Normal [facility] Comment on above: Performed By: #### C BC #### [facility] [address] [place] [address] Dr. Eusebia Moralez MCH (RBC) [Entitic mass] 29.8 pg Normal 26.7-34.0 [facility] Comment on above: Performed By: #### C BC #### [facility] [address] [place] [address] Dr. Eusebia Moralez MCHC (RBC) [Mass/Vol] 31.3 g/dL Normal 29.9-35.2 [facility] Comment on above: Performed By: #### C BC #### [facility] [address] [place] [address] Dr. Eusebia Moralez MCV (RBC) [Entitic vol] 95.2 fL Normal 81.0-99.0 [facility] Comment on above: Performed By: #### C BC #### [facility] [address] [place] [address] Dr. Eusebia Moralez MONO # 0.5 103/ul Normal 0.3-0.8 [facility] Comment on above: Performed By: #### C BC #### [facility] [address] [place] [address] Dr. Eusebia Moralez Monocytes/100 WBC (Bld) 7.0 % Normal 1.7-12.0 [facility] Comment on above: Performed By: #### C BC #### [facility] [address] [place] [address] Dr. Eusebia Moralez NEUT # 5.2 103/ul Normal 1.4-6.5 [facility] Comment on above: Performed By: #### C BC #### [facility] [address] [place] [address] Dr. Eusebia Moralez Neutrophils/100 WBC (Bld) 73.3 % Normal 43.0-75.0 [facility] Comment on above: Performed By: #### C BC #### [facility] [address] [place] [address] Dr. Eusebia Moralez Platelet mean volume (Bld) [Entitic vol] 9.5 fL Normal 9.5-13.5 [facility] Comment on above: Performed By: #### C BC #### [facility] [address] [place] [address] Dr. Eusebia Moralez PLT 188 103/ul Normal 150-450 [facility] Comment on above: Performed By: #### C BC #### [facility] [address] [place] [address] Dr. Eusebia Moralez RBC 4.16 106/ul Critically low 4.20-5.40 [facility] Comment on above: Performed By: #### C BC #### [facility] [address] [place] [address] Dr. Eusebia Moralez WBC 7.0 103/ul Normal 4.0-11.0 [facility] Comment on above: Performed By: #### C BC #### [facility] [address] [place] [address] Dr. Eusebia Moralez FREE THYROXINE INDEX T7on FTI 2.45 Normal 1.30-4.50 [facility] Comment on above: Performed By: #### T SH, BNP, CMP, T7, LIPID ####[facility] [address] [id number]. Eusebia Moralez T3U 35.0 % Normal 30.0-39.0 [facility] Comment on above: Performed By: #### T SH, BNP, CMP, T7, LIPID ####[facility] [address] [id number] Moralez T4 [Mass/Vol] 7.00 ug/dL Normal 4.80-13.90 [facility] Comment on above: Performed By: #### T SH, BNP, CMP, T7, LIPID ####[facility] [address] [id number] Moralez IRONon 01-14-2022 Iron [Mass/Vol] 58.0 ug/dL Normal 50.0-170.0 [facility] Comment on above: Performed By: #### I MONIE #### [facility] [address] [place], [place] [address] Dr. Eusebia Moralez LIPID PROFILEon 01-14-2022 CHOL-HDL RATIO NORM SEE BELOW Normal [facility] Comment on above: Result Comment: 3.3 - 4.4 LOW RISK 4.4 - 7.1 AVERAGE RISK 7.1 - 11.0 MODERATE RISK >11.0 HIGH RISK Performed By: #### T SH, BNP, CMP, T7, LIPID ####[facility] [address] [id number] Moralez Cholesterol [Mass/Vol] 186 mg/dL Normal <=200 [facility] Comment on above: Performed By: #### T SH, BNP, CMP, T7, LIPID ####[facility] [address] [id number]. Eusebia Moralez Cholesterol in HDL [Mass/Vol] 45 mg/dL Normal 40-60 [facility] Comment on above: Performed By: #### T SH, BNP, CMP, T7, LIPID ####[facility] [address] [id number]. Eusebia Moralez Cholesterol in LDL [Mass/Vol] 118.4 mg/dL Normal [facility] Comment on above: Performed By: #### T SH, BNP, CMP, T7, LIPID ####[facility] [address] [address]Dr. Eusebia Moralez Cholesterol.total/C holesterol in HDL [Mass ratio] 4.1 {ratio} Normal [facility] Comment on above: Performed By: #### T SH, BNP, CMP, T7, LIPID ####[facility] [address] [address]Dr. Eusebia Moralez HDL NORMAL > or = 60 mg/dl - LO W CARDIOVASCULAR RISK <40 mg/dl - HIGH CARDIOVASCULAR RISK Normal [facility] Comment on above: Performed By: #### T SH, BNP, CMP, T7, LIPID ####[facility] [address] [address]Dr. Eusebia Moralez LDL CALC NORMAL SEE BELOW Normal [facility] Comment on above: Result Comment: <100 mg/dl OPTIMAL 100 - 129 mg/dl NEAR OR ABOVE OPTIMAL 130 - 159 mg/dl BORDERLINE HIGH 160 - 189 mg/dl HIGH >190 mg/dl VERY HIGH Performed By: #### T SH, BNP, CMP, T7, LIPID ####[facility] [address] [place] [address]Dr. Eusebia Moralez Triglyceride [Mass/Vol] 113 mg/dL Normal <=150 [facility] Comment on above: Performed By: #### T SH, BNP, CMP, T7, LIPID ####[facility] [address] [address]Dr. Eusebia Moralez VLDL CALC 22.6 mg/dL Normal [facility] Comment on above: Performed By: #### T SH, BNP, CMP, T7, LIPID ####[facility] [address] [place] [address]Dr. Eusebia Moralez PROF 14(COMP METB)on 022 Albumin [Mass/Vol] 3.3 g/dL Critically low 3.4-5.0 [facility] Comment on above: Performed By: #### T SH, BNP, CMP, T7, LIPID #### [facility] [address] [place] [address] Dr. Eusebia Moralez Albumin/Globulin [Mass ratio] 0.9 {ratio} Normal [facility] Comment on above: Performed By: #### T SH, BNP, CMP, T7, LIPID #### [facility] [address] [place] [address] Dr. Eusebia Moralez ALP [Catalytic activity/Vol] 81 U/L Normal 46-116 [facility] Comment on above: Performed By: #### T SH, BNP, CMP, T7, LIPID #### [facility] [address] [place] [address] Dr. Eusebia Moralez ALT [Catalytic activity/Vol] 19 U/L Normal 14-59 [facility] Comment on above: Performed By: #### T SH, BNP, CMP, T7, LIPID #### [facility] [address] [place] [address] Dr. Eusebia Moralez Anion gap [Moles/Vol] 12.3 mmol/L Normal [facility] Comment on above: Performed By: #### T SH, BNP, CMP, T7, LIPID #### [facility] [address] [place] [address] Dr. Eusebia Moralez AST [Catalytic activity/Vol] 12 U/L Critically low 15-37 [facility] Comment on above: Performed By: #### T SH, BNP, CMP, T7, LIPID #### [facility] [address] [place] [address] Dr. Eusebia Moralez Bilirubin [Mass/Vol] 0.4 mg/dL Normal 0.2-1.0 [facility] Comment on above: Performed By: #### T SH, BNP, CMP, T7, LIPID #### [facility] [address] [place] [address] Dr. Eusebia Moralez Calcium [Mass/Vol] 8.9 mg/dL Normal 8.5-10.1 [facility] Comment on above: Performed By: #### T SH, BNP, CMP, T7, LIPID #### [facility] [address] [place] [address] Dr. Eusebia Moralez Chloride [Moles/Vol] 106 mmol/L Normal 98-107 [facility] Comment on above: Performed By: #### T SH, BNP, CMP, T7, LIPID #### [facility] [address] [address] [address] Eusebia Moralez CO2 [Moles/Vol] 27.4 mmol/L Normal 21.0-32.0 [facility] Comment on above: Performed By: #### T SH, BNP, CMP, T7, LIPID #### [facility] [address] [address] [address] Eusebia Moralez Creatinine [Mass/Vol] 1.51 mg/dL Critically high 0.55-1.02 [facility] Comment on above: Performed By: #### T SH, BNP, CMP, T7, LIPID #### [facility] [address] [place] [address] Dr. Eusebia Moralez EGFR-AF MICRONESIAN 41 mL/min/1.73m2 Critically low >=60 [facility] Comment on above: Performed By: #### T SH, BNP, CMP, T7, LIPID #### [facility] [address] [address] [address] Eusebia Moralez EGFR-NON AF MICRONESIAN 34 mL/min/1.73m2 Critically low >=60 [facility] Comment on above: Performed By: #### T SH, BNP, CMP, T7, LIPID #### [facility] [address] [address] [address] Eusebia Moralez Globulin (S) [Mass/Vol] 3.5 g/dL Normal [facility] Comment on above: Performed By: #### T SH, BNP, CMP, T7, LIPID #### [facility] [address] [address] [address] Eusebia Moralez Glucose [Mass/Vol] 129 mg/dL Critically high 74-106 [facility] Comment on above: Performed By: #### T SH, BNP, CMP, T7, LIPID #### [facility] [address] [address] [address] Eusebia Moralez Potassium [Moles/Vol] 4.7 mmol/L Normal 3.5-5.1 [facility] Comment on above: Performed By: #### T SH, BNP, CMP, T7, LIPID #### [facility] [address] [address] [address] Eusebia Moralez Protein [Mass/Vol] 6.8 g/dL Normal 6.4-8.2 [facility] Comment on above: Performed By: #### T SH, BNP, CMP, T7, LIPID #### [facility] [address] [address] [address] Eusebia Moralez Sodium [Moles/Vol] 141 mmol/L Normal 136-145 [facility] Comment on above: Performed By: #### T SH, BNP, CMP, T7, LIPID #### [facility] [address] [address] [address] Eusebia Moralez Urea nitrogen [Mass/Vol] 37.0 mg/dL Critically high 7.0-18.0 [facility] Comment on above: Performed By: #### T SH, BNP, CMP, T7, LIPID #### [facility] [address] [address] [address] Eusebia Moralez Urea nitrogen/Creatinine [Mass ratio] 24.5 mg/mg Normal [facility] Comment on above: Performed By: #### T SH, BNP, CMP, T7, LIPID #### [facility] [address] [address] [address] Eusebia Moralez TSHon 01-14-2022 TSH 0.068 uIU/mL Critically low 0.358-3.740 [facility] Comment on above: Performed By: #### T SH, BNP, CMP, T7, LIPID ####[facility] [address] [address]Dr. Eusebia Moralez [facility]-13 SARS-CoV-2 (COVID-19) RNA DEREK+probe Ql (Unsp spec) Not detected Normal NOT DETECTED [facility] Comment on above: Result Comment: This test is not yet approved or cleared by the [place] FDA. When there are no FDA-approved or cleared tests available, and other criteria are met, FDA can make tests available under an emergency access mechanism called an Emergency Use Authorization (EUA). The EUA for this test is supported by the [place] of Health and Human Service's (HHS's) declaration [...] consistent with SARS-CoV-2. Performed By: #### C [facility] ####[facility] [address] [place], [place] [address]Jz. Lisadenise Moralez MRI LSPINE WO CONon 10-11-19 MRI [...] [facility] Pulmonary Progress Noteo n 09-13-2020 [facility] Pulmonary Progress Note [facility] Pt Name: VERO SADLER [address] MR#: [id number] [place] [address] ACCT: [id number] PROGRESS NOTE- Pulmonary : [facility] Date of Service: 09/13/20 Text NAME: VERO SADLER MR#: [id number] DATE OF SERVICE: 09/13/2020 OUTPATIENT PULMONARY PROGRESS [...] disease, severity unknown. We will try to [facility] Pt Name: VERO SADLER [address] [place] [address] MR#: [id number] [place] [address] ACCT: [id number] PROGRESS NOTE- Pulmonary : [facility] [...] postoperative management if needed. TIM TOSCANO MD DI/MODL/[id number] 2 CC: Dr. Rito Guerrero MD [facility] Date and Time Tim Toscano MD Signature on File 09/26/20 1046 Normal [facility] GLYCO HEMOon 08-23-2020 HbA1c (Bld) [Mass fraction] 5.3 % Normal [facility] Comment on above: Result Comment: Milagro vidal Diagnosis HbA1c (%) --------- Diabetic > 6.4 Prediabetes 5.7-6.4 Normal < 5.7 Performed By: #### L 500.91529 #### Test performed at: [address] [address] CBC W/DIFFon 08-22-2020 BASO ABS 0.0 K/uL Normal 0.0-0.2 [facility] Comment on above: Performed By: #### L 200.78772 #### Test performed at: [address] [address] Basophils/100 WBC (Bld) 0.5 % Normal [facility] Comment on above: Performed By: #### L 200.69350 #### Test performed at: [address] [address] EOS ABS 0.1 K/uL Normal 0.0-0.5 [facility] Comment on above: Performed By: #### L 200.02616 #### Test performed at: [address] [address] Eosinophils/100 WBC (Bld) 1.2 % Normal [facility] Comment on above: Performed By: #### L 200.32330 #### Test performed at: [address] [address] Erythrocyte distribution width (RBC) [Ratio] 12.8 % Normal 11.5-14.5 [facility] Comment on above: Performed By: #### L 200.66954 #### Test performed at: [address] [address] Hematocrit (Bld) [Volume fraction] 40.1 % Normal 36.0-48.0 [facility] Comment on above: Performed By: #### L 200.65744 #### Test performed at: [address] [place] [address] Hemoglobin (Bld) [Mass/Vol] 12.4 g/dL Normal 12.0-15.0 [facility] Comment on above: Performed By: #### L 200.31103 #### Test performed at: [address] [address] IG % 0.3 % Normal [facility] Comment on above: Performed By: #### L 200.57859 #### Test performed at: [address] [address] IG ABS 0.02 K/uL Normal 0-0.05 [facility] Comment on above: Performed By: #### L 200.92629 #### Test performed at: [address] [address] Lymphocytes (Bld) [#/Vol] 1.3 10*3/uL Normal 1.2-3.5 [facility] Comment on above: Performed By: #### L 200.94485 #### Test performed at: [address] [address] Lymphocytes/100 WBC (Bld) 16.9 % Normal [facility] Comment on above: Performed By: #### L 200.03732 #### Test performed at: [address] [address] MCH (RBC) [Entitic mass] 29.0 pg Normal 25.4-34.6 [facility] Comment on above: Performed By: #### L 200.44843 #### Test performed at: [address] [address] MCHC (RBC) [Mass/Vol] 30.9 g/dL Low 31.5-36.5 [facility] Comment on above: Performed By: #### L 200.37787 #### Test performed at: [address] [place] [address] MCV (RBC) [Entitic vol] 93.7 fL Normal 79.0-98.0 [facility] Comment on above: Performed By: #### L 200.30177 #### Test performed at: [address] [address] MONO ABS 0.8 K/uL Normal 0.0-1.0 [facility] Comment on above: Performed By: #### L 200.11165 #### Test performed at: [address] [address] Monocytes/100 WBC (Bld) 9.7 % Normal [facility] Comment on above: Performed By: #### L 200.26528 #### Test performed at: [address] [address] NEUTROPHIL ABS 5.5 K/uL Normal 1.4-6.6 [facility] Comment on above: Performed By: #### L 200.51847 #### Test performed at: [address] [address] Neutrophils/100 WBC (Bld) 71.4 % Normal [facility] Comment on above: Performed By: #### L 200.19265 #### Test performed at: [address] [address] NRBC # 0.000 K/uL Normal 0-0.012 [facility] Comment on above: Performed By: #### L 200.05442 #### Test performed at: [address] [address] NRBC % 0.0 /100 WBC Normal 0-0.2 [facility] Comment on above: Performed By: #### L 200.90782 #### Test performed at: [address] [address] Platelet mean volume (Bld) [Entitic vol] 10.1 fL Normal 8.7-12.4 [facility] Comment on above: Performed By: #### L 200.16742 #### Test performed at: [address] [address] Platelets (Bld) [#/Vol] 236 10*3/uL Normal 140-440 [facility] Comment on above: Performed By: #### L 200.61420 #### Test performed at: [address] [address] RBC (Bld) [#/Vol] 4.28 10*6/uL Normal 3.5-5.5 [facility] Comment on above: Performed By: #### L 200.84928 #### Test performed at: [address] [address] WBC (Bld) [#/Vol] 7.7 10*3/uL Normal 3.9-11.0 [facility] Comment on above: Performed By: #### L 200.75685 #### Test performed at: [address] [address] CHEST PA/AP & LATERAL OR 2 V WSon 08-22-2020 CHEST PA/AP & LATERAL OR 2 VWS STUDY: CHEST PA/AP LATERAL OR 2 VWS; 08/22/2020 2:35 pm INDICATION: COPD. COMPARISON: None. ACCESSION NUMBER(S): [id number] ORDERING CLINICIAN: Ovidio Baez FINDINGS: The lungs are clear without pleural effusion. Borderline cardiomegaly. Otherwise unremarkable mediastinum, eron, and pulmonary vasculature. Thoracic degenerative changes are present. IMPRESSION: No active disease in the chest. Normal [facility] COMP META PANELon 08-22-2020 Albumin [Mass/Vol] 3.4 g/dL Normal 3.4-5.0 [facility] Comment on above: Performed By: #### L 500.14627, L500.79559, L500.70961 #### Test performed at: [address] [address] ALK PHOS TOTAL 88 U/L Normal 45-117 [facility] Comment on above: Performed By: #### L 500.49070, L500.34541, L500.52589 #### Test performed at: [address] [address] ALT [Catalytic activity/Vol] 17 U/L Normal 13-61 [facility] Comment on above: Performed By: #### L 500.14222, L500.47571, L500.25914 #### Test performed at: [address] [address] AST [Catalytic activity/Vol] 12 U/L Low 15-37 [facility] Comment on above: Performed By: #### L 500.81668, L500.50358, L500.22952 #### Test performed at: [address] [address] BILI TOTAL 0.5 mg/dL Normal 0.2-1.0 [facility] Comment on above: Performed By: #### L 500.75591, L500.50599, L500.19247 #### Test performed at: [address] [address] Calcium [Mass/Vol] 9.0 mg/dL Normal 8.5-10.1 [facility] Comment on above: Performed By: #### L 500.73226, L500.12468, L500.49112 #### Test performed at: [address] [address] Chloride [Moles/Vol] 107 mmol/L Normal 98-107 [facility] Comment on above: Performed By: #### L 500.25200, L500.37823, L500.51884 #### Test performed at: [address] [address] CO2 [Moles/Vol] 29 mmol/L Normal 21-32 [facility] Comment on above: Performed By: #### L 500.80749, L500.02460, L500.81582 #### Test performed at: [address] [address] Creatinine [Mass/Vol] 1.280 mg/dL High 0.550-1.020 [facility] Comment on above: Performed By: #### L 500.34449, L500.95264, L500.67882 #### Test performed at: [address] [address] Glucose [Mass/Vol] 90 mg/dL Normal 70-99 [facility] Comment on above: Result Comment: Fast ing GLUCOSE reference range has been updated per (ADA) [place] [employer]'s recommendation. 06/07/2018 Performed By: #### L 500.42428, L500.70741, L500.16452 #### Test performed at: [address] [address] Potassium [Moles/Vol] 4.4 mmol/L Normal 3.5-5.1 [facility] Comment on above: Performed By: #### L 500.59318, L500.37261, L500.06383 #### Test performed at: [address] [address] Protein [Mass/Vol] 6.8 g/dL Normal 6.4-8.2 [facility] Comment on above: Performed By: #### L 500.42003, L500.81485, L500.08128 #### Test performed at: [address] [address] Sodium [Moles/Vol] 142 mmol/L Normal 136-145 [facility] Comment on above: Performed By: #### L 500.60957, L500.60525, L500.49880 #### Test performed at: [address] [address] Urea nitrogen [Mass/Vol] 21 mg/dL High 7-18 [facility] Comment on above: Performed By: #### L 500.91693, L500.06955, L500.81649 #### Test performed at: [address] [address] GFR ESTIMATEon 08-22-2020 IF AMER 50 Low > 60 [facility] Comment on above: Result Comment: eGFR (Estimated GFR) Units of measure:mL/min/1.73 meters sq. *CALCULATION REVISED 01/01/2015;IDMS-traceable MDRD equation eGFR is derived from the reexpressed MDRD Study equation using the following parameters: serum creatinine, age, gender and race. An eGFR<60 mL/min/1.73m2 for >3 months is consistent with chronic kidney disease. Refer to KDOQI guidelines for clinical interpretation. Performed By: #### L 500.36948, L500.85699, L500.18815 #### Test performed at: [address] [address] IF non-AFR AMER 41 Low > 60 [facility] Comment on above: Performed By: #### L 500.86134, L500.73049, L500.82094 #### Test performed at: [address] [address] TSH ULTRA SENSon 08-22-2020 TSH ULTRA SENS < 0.005 Low 0.358-3.74 [facility] Comment on above: Performed By: #### L 500.34841, L500.42072, L500.95071 #### Test performed at: [address] [address] LUMB SP COMP W FLEX/EXT 6 VW Son 07-23-2020 LUMB SP COMP W FLEX/EXT 6 VWS STUDY: LUMB SP COMP W FLEX/EXT 6 VWS ; 07/23/2020 9:01 am INDICATION: PAIN. COMPARISON: None. ACCESSION NUMBER(S): [id number] ORDERING CLINICIAN: Sacha Guerrero FINDINGS: No fracture [...] of the lumbar spine without instability. Normal [facility] Vital Signs Date Time Vital Sign Value Performing Clinician Ted guerra 03-31-2024 14:50-0500 Blood Pressure Location ROSETTA NKMILO[facility] 03-31-2024 14:50-0500 Diastolic blood pressure 82 mm[Hg] ROSETTA NKANSAH-AMANKRA [facility] 03-31-2024 14:50-0500 Heart rate 86 /min ROSETTA NKANSAH-AMANKRA [facility] 03-31-2024 14:50-0500 Respiratory rate 16 /min ROSETTA NKANSAH-AMANKRA [facility] 03-31-2024 14:50-0500 Systolic blood pressure 152 mm[Hg] ROSETTA NKANSAH-AMANKRA [facility] 01-06-2024 13:02-0400 Body height 162.56 cm [facility] 01-06-2024 13:02-0400 Body mass index (BMI) [Ratio] 50.5 kg/m2 [facility] 01-06-2024 13:02-0400 Body temperature 96.3 [degF] [facility] 01-06-2024 13:02-0400 Body weight 133.46 kg [facility] 01-06-2024 13:02-0400 Diastolic blood pressure 90 mm[Hg] [facility] 01-06-2024 13:02-0400 Heart rate 81 /min [facility] 01-06-2024 13:02-0400 Respiratory rate 18 /min [facility] 01-06-2024 13:02-0400 SaO2% (BldA) [Mass fraction] 98 % [facility] 01-06-2024 13:02-0400 Systolic blood pressure 179 mm[Hg] [facility] Encounters Encounter Date Encounter Type Care Provider Facility Start: 05-05-2024 ambulatory ROSETTA NKANSAH-AMANKRA [facility] Start: 03-31-2024 End: 03-31-2024 ambulatory ROSETTA NKANSAH-AMANKRA [facility] Start: 03-31-2024 End: 03-31-2024 Patient encounter procedure ROSETTA NKANSAH-AMANKRA [facility] Start: 02-22-2024 ambulatory ROSETTA NKANSAH-AMANKRA Facility: [facility] Start: 02-14-2024 End: 02-14-2024 ambulatory Cande Garcia MD Facility:[facility] Start: 02-08-2024 End: 02-08-2024 ambulatory JOSEY [facility] Start: 01-26-2024 End: 01-26-2024 [facility]: 01-06-[facility]24 End: 01-06-2024 ambulatory [facility] Work Phone: Start: 01-06-2024 End: 01-06-2024 Patient encounter procedure [facility] Work Phone: Start: 11-23-2023 End: 11-23-2023 Encounter for other specified special examinations JOSE ANGEL López [facility] Start: 11-23-2023 End: 11-23-2023 ambulatory JOSE ANGEL López SHEFALI [facility] Start: 10-26-2023 End: 10-26-2023 ambulatory [facility] Start: 07-20-2023 End: 07-20-2023 ambulatory OLLIE FELTON [facility] Start: 07-09-2023 ambulatory JOSE ANGEL J. SHEFALI [facility] Start: 06-30-2023 End: 06-30-2023 ambulatory [facility] Start: 05-31-2023 End: 05-31-2023 ambulatory JOSE ANGEL López [facility] Start: 03-26-2023 ambulatory JOSE ANGEL López SHEFALI [facility] Start: 03-23-2023 End: 03-23-2023 ambulatory [facility] Start: 02-16-2023 End: 02-16-2023 ambulatory NATALIA KUHN [facility] Start: 07-17-2022 End: 07-18-2022 ambulatory JOSEY KWOK Facility:[facility] Start: 07-02-2022 End: 07-03-2022 ambulatory JOSEY KWOK Facility:[facility] Start: 05-25-[address] DEBBIE Garcia Facili ty:[facility] Start: 03-09-2022 End: 03-10-[address] DEBBIE ARVIZU . Facility:[facility] Start: 02-23-2022 End: 02-24-[address] DEBBIE ARVIZU . Facility:[facility] Start: 02-02-2022 End: 02-03-[address] DEBBIE ARVIZU . Facility:[facility] Start: 01-26-2022 End: 01-27-[address] DEBBIE Garcia Facility:[facility] Start: 01-23-2022 End: 01-24-[address] [...] Start: 09-29-2016 End: 09-30-2016 Ambulatory DEFAULT PHYSICIAN Facility:[facility] Procedures Date Procedure Procedure Detail Performing Clinician Start: 02-09-2023 Colonoscopy ROSETTA NK MILO-AMANKRA Start: 07-06-2018 Colonoscopy ROSETTA NK MILO-AMANKRA Cataract extraction and insertion of intraocular lens ROSETTA NKANSAH-AMANKRA H/O: hysterectomy ROSETTA NK MILO-AMANKRA Hysterectomy ROSETTA NKANSAH -AMANKRA Procedure ROSETTA NKANSAH -AMANKRA Total hysterectomy ROSETTA N KANSAH-AMANKRA Plan of Treatment Date Care Activity Detail Author Renal function 2000 panel - Serum or Plasma [facility] Immunizations Immunization Date Immunization Notes Care Provider Fa cility 01-07-2021 SARS-CoV-2 (COVID-19 ) mRNA BNT-162b2 vax ROSETTA NKANSAH-AMANKRA [facility] [place] 12-17-2020 SARS-CoV-2 (COVID-19 ) mRNA BNT-162b2 vax ROSETTA NKANSAH-AMANKRA [facility] [place] Payers Date Payer Category Payer Medicare 2023 Private Health Insurance 2022 Medicare [id number] 1958 Medicare [id number] 1958 Unknown [id number] 1950 Unknown [id number] 2.16.84 0.1.287338.3.579.2.593 1950 Unknown [id number] 2.16.84 0.1.653930.3.579.2.593 1950 Unknown [id number] 2.16.84 0.1.478745.3.579.2.593 1950 Unknown [id number] 2.16.84 0.1.038540.3.579.2.593 1950 Unknown [id number] 2.16.84 0.1.280518.3.579.2.593 1950 Unknown [id number] 2.16.84 0.1.912076.3.579.2.593 1950 Unknown [id number] 2.16.84 0.1.321017.3.579.2.593 1950 Unknown [id number] 2.16.84 0.1.608595.3.579.2.593 1950 Unknown [id number] 2.16.84 0.1.535628.3.579.2.593 1950 Unknown [id number] 2.16.84 0.1.203962.3.579.2.593 1950 Unknown [id number] 2.16.84 0.1.820452.3.579.2.593 1950 Unknown [id number] 2.16.84 0.1.464970.3.579.2.593 1950 Unknown [id number] 2.16.84 0.1.849984.3.579.2.593 1950 Unknown [id number] 2.16.84 0.1.184875.3.579.2.593 1950 Unknown [id number] 2.16. 840.1.288816.3.579.2.196 1950 Unknown [id number] 2.16.8 40.1.585142.3.579.2.727 1950 Unknown [id number] 2.16.8 40.1.361855.3.579.2.727 Unknown Unknown [id number] Social History Date Type Detail Facility Start: 01-06-2024 End: 03-31-2024 Tobacco smoking status NHIS Ex-smoker (finding) [facility] Start: 1950 Sex Assigned At Female [facility] Tobacco smoking status Never [facility] Sex Assigned At Female [facility] Functional Status Date Assessment Result Facility 03-31-2024 Functional Status N/A [facility] Clinical Notes 02-16-2023 to 03-31-2024 Note Date & Type Note Facility 03-31-2024 Hospital Discharge instructions Patient Education 03/31/2024 15:09:50 Cystoscopy Cystoscopy Cystoscopy is a procedure that is used to help diagnose and sometimes treat conditions that affect the lower urinary tract. The lower urinary tract includes the bladder and the urethra. The urethra is the tube that drains urine from the bladder. Cystoscopy is done using a thin, tube-shaped instrument with a light and camera at the end (cystoscope). The cystoscope may be hard or flexible, depending on the goal of the procedure. The cystoscope is inserted through the urethra, into the bladder. Cystoscopy may be recommended if you have: Urinary tract infections that keep coming back. Blood in the urine (hematuria). An inability to control when you urinate (urinary incontinence) or an overactive bladder. Unusual cells found in a urine sample. A blockage in the urethra, such as a urinary stone. Painful urination. An abnormality in the bladder found during an intravenous pyelogram (IVP) or CT scan. Cystoscopy may also be done to remove a sample of tissue to be examined under a microscope (biopsy). Tell a health care provider about: Any allergies you have. All medicines you are taking, including vitamins, herbs, eye drops, creams, and [id number] medicines. Any problems you or family members have had with anesthetic medicines. Any blood disorders you have. Any surgeries you have had. Any medical conditions you have. Whether you are or may be . What are the risks? Generally, this is a safe procedure. However, problems may occur, including: Infection. Bleeding. Allergic reactions to medicines. Damage to other structures or organs. What happens before the procedure? Medicines Ask your health care provider about: Changing or stopping your regular medicines. This is especially important if you are taking diabetes medicines or blood thinners. Taking medicines such as aspirin and ibuprofen. These medicines can thin your blood. Do not take these medicines unless your health care provider tells you to take them. Taking muci-den-hcjamep medicines, vitamins, herbs, and supplements. Tests You may have an exam or testing, such as: X-rays of the bladder, urethra, or kidneys. CT scan of the abdomen or pelvis. Urine tests to check for signs of infection. General instructions Follow instructions from your health care provider about eating or drinking restrictions. Ask your health care provider what steps will be taken to help prevent infection. These steps may include: ?Washing skin with a germ-killing soap. ?Taking antibiotic medicine. Plan to have a responsible adult take you home from the hospital or clinic. What happens during the procedure? You will be given one or more of the following: ?A medicine to help you relax (sedative). ?A medicine to numb the area (local anesthetic). The area around the opening of your urethra will be cleaned. The cystoscope will be passed through your urethra into your bladder. Germ-free (sterile) fluid will flow through the cystoscope to fill your bladder. The fluid will stretch your bladder so that your health care provider can clearly examine your bladder shah. Your doctor will look at the urethra and bladder. Your doctor may take a biopsy or remove stones. The cystoscope will be removed, and your bladder will be emptied. The procedure may vary among health care providers and hospitals. What can I expect after the procedure? After the procedure, it is common to have: Some soreness or pain in your abdomen and urethra. Urinary symptoms. These include: ?Mild pain or burning when you urinate. Pain should stop within a few minutes after you urinate. This may last for up to 1 week. ?A small amount of blood in your urine for several days. ?Feeling like you need to urinate but producing only a small amount of urine. Follow these instructions at home: Medicines Take pgma-hzj-ugjwdoj and prescription medicines only as told by your health care provider. If you were prescribed an antibiotic medicine, take it as told by your health care provider. Do not stop taking the antibiotic even if you start to feel better. General instructions Return to your normal activities as told by your health care provider. Ask your health care provider what activities are safe for you. If you were given a sedative during the procedure, it can affect you for several hours. Do not drive or operate machinery until your health care provider says that it is safe. Watch for any blood in your urine. If the amount of blood in your urine increases, call your health care provider. Follow instructions from your health care provider about eating or drinking restrictions. If a tissue sample was removed for testing (biopsy) during your procedure, it is up to you to get your test results. Ask your health care provider, or the department that is doing the test, when your results will be ready. Drink enough fluid to keep your urine pale yellow. Keep all follow-up visits. This is important. Contact a health care provider if: You have pain that gets worse or does not get better with medicine, especially pain when you urinate. You have trouble urinating. You have more blood in your urine. Get help right away if: You have blood clots in your urine. You have abdominal pain. You have a fever or chills. You are unable to urinate. Summary Cystoscopy is a procedure that is used to help diagnose and sometimes treat conditions that affect the lower urinary tract. Cystoscopy is done using a thin, tube-shaped instrument with a light and camera at the end. After the procedure, it is common to have some soreness or pain in your abdomen and urethra. Watch for any blood in your urine. If the amount of blood in your urine increases, call your health care provider. If you were prescribed an antibiotic medicine, take it as told by your health care provider. Do not stop taking the antibiotic even if you start to feel better. This information is not intended to replace advice given to you by your health care provider. Make sure you discuss any questions you have with your health care provider. Document Revised: 11/12/2021 Document Reviewed: 10/11/2020 [employer] Patient Education 2023 [employer]. 03/31/2024 15:09:42 Injection Treatments for Urinary Incontinence Injection Treatments for Urinary Incontinence Urinary incontinence is a condition in which a person cannot control when he or she passes urine. The cause of this condition is usually a weak urinary sphincter. The urinary sphincter is the muscle that normally keeps urine from leaking. To treat this condition, a material called a bulking agent can be injected either into the urethra or into the bladder neck. The urethra is the part of the body that drains urine from the bladder. The bladder neck is the area where the bladder and urethra connect. The bulking agent is also called an implant. The implant narrows and strengthens the urethra to help control the passing of urine. Urinary incontinence is a common problem for women who have had pregnancies or certain surgeries, such as a hysterectomy, and for men who have had prostate surgery. Tell a health care provider about: Any allergies you have. All medicines you are taking, including vitamins, herbs, eye drops, creams, and vept-efc-peizeot medicines. Any problems you or family members have had with anesthetic medicines. Any blood disorders you have. Any surgeries you have had. Any medical conditions you have. Whether you are or may be . What are the risks? Generally, this is a safe procedure. However, problems may occur, including: Infection. Bleeding. Allergic reaction to medicines or to the bulking agent. Damage to the urethra or bladder. Difficulty passing urine. A strong and uncomfortable urge to pass urine (urgency). Pain when passing urine or having sex. Failure of the procedure to treat incontinence. A need to repeat the procedure at a later time. What happens before the procedure? Staying hydrated Follow instructions from your health care provider about hydration, which may include: Up to 2 hours before the procedure you may continue to drink clear liquids, such as water, clear fruit juice, black coffee, and plain tea. Eating and drinking restrictions Follow instructions from your health care provider about eating and drinking, which may include: 8 hours before the procedure stop eating heavy meals or foods, such as meat, fried foods, or fatty foods. 6 hours before the procedure stop eating light meals or foods, such as toast or cereal. 6 hours before the procedure stop drinking milk or drinks that contain milk. 2 hours before the procedure stop drinking clear liquids. Medicines Ask your health care provider about: Changing or stopping your regular medicines. This is especially important if you are taking diabetes medicines or blood thinners. Taking medicines such as aspirin and ibuprofen. These medicines can thin your blood. Do not take these medicines unless your health care provider tells you to take them. Taking wcld-ygt-squhcrk medicines, vitamins, herbs, and supplements. General instructions Ask your health care provider what steps will be taken to help prevent infection. These steps may include: ?Removing hair at the surgery site. ?Washing skin with a germ-killing soap. ?Taking antibiotic medicine. You may need to have a series of tests done to learn more about your bladder control (urodynamic testing). Plan to have a responsible adult take you home from the hospital or clinic. Plan to have a responsible adult care for you for the time you are told after you leave the hospital or clinic. This is important. What happens during the procedure? An IV may be inserted into one of your veins. You may be given one or more of the following: ?A medicine to help you relax (sedative). ?A medicine to numb your urethra and bladder area (local anesthetic). ?A medicine to make you fall asleep (general anesthetic). A small, thin tube (catheter) may be inserted through your urethra into your bladder. A long, thin tube with a light and camera (cystoscope) will be placed into your urethra and moved up toward your bladder. The camera sends images to a screen in the room. These images will be used to help guide the procedure. A long needle will be threaded through the cystoscope. Bulking material will be injected into the tissues around your urethra, near your urinary sphincter. The cystoscope and needle will be removed. The procedure may vary among health care providers and hospitals. What happens after the procedure? Your blood pressure, heart rate, breathing rate, and blood oxygen level will be monitored until you leave the hospital or clinic. If you have a catheter in your urethra, it will be removed to see if you can pass urine. If you have trouble passing urine, a new catheter may be inserted and left in place for a few days. Your bladder may be filled with fluid through your catheter to check for any problems in the bladder. You may be given antibiotic medicine to take at home. If you were given a sedative during the procedure, it can affect you for several hours. Do not drive or operate machinery until your health care provider says that it is safe. Summary Urinary incontinence is when you cannot control when you pass urine. The muscle that normally keeps urine from leaking may be weak. Urinary incontinence is a common problem for women who have had pregnancies or certain surgeries, such as a hysterectomy, and for men who have had prostate surgery. To treat this condition, a bulking agent can be injected either into the urethra or into the bladder neck. This information is not intended to replace advice given to you by your health care provider. Make sure you discuss any questions you have with your health care provider. Document Revised: 10/04/2020 Document Reviewed: 10/04/2020 [employer] Patient Education 2023 [employer]. 03/31/2024 15:09:34 Kegel Exercises Kegel Exercises Kegel exercises can help strengthen your pelvic floor muscles. The pelvic floor is a group of muscles that support your rectum, small intestine, and bladder. In females, pelvic floor muscles also help support the uterus. These muscles help you control the flow of urine and stool (feces). Kegel exercises are painless and simple. They do not require any equipment. Your provider may suggest Kegel exercises to: Improve bladder and bowel control. Improve sexual response. Improve weak pelvic floor muscles after surgery to remove the uterus (hysterectomy) or after , in females. Improve weak pelvic floor muscles after prostate gland removal or surgery, in males. Kegel exercises involve squeezing your pelvic floor muscles. These are the same muscles you squeeze when you try to stop the flow of urine or keep from passing gas. The exercises can be done while sitting, standing, or lying down, but it is best to vary your position. Ask your health care provider which exercises are safe for you. Do exercises exactly as told by your health care provider and adjust them as directed. Do not begin these exercises until told by your health care provider. Exercises How to do Kegel exercises: 1.Squeeze your pelvic floor muscles tight. You should feel a tight lift in your rectal area. If you are a female, you should also feel a tightness in your vaginal area. Keep your stomach, buttocks, and legs relaxed. 2.Hold the muscles tight for up to 10 seconds. 3.Breathe normally. 4.Relax your muscles for up to 10 seconds. 5.Repeat as told by your health care provider. Repeat this exercise daily as told by your health care provider. Continue to do this exercise for at least 4 6 weeks, or for as long as told by your health care provider. You may be referred to a physical therapist who can help you learn more about how to do Kegel exercises. Depending on your condition, your health care provider may recommend: Varying how long you squeeze your muscles. Doing several sets of exercises every day. Doing exercises for several weeks. Making Kegel exercises a part of your regular exercise routine. This information is not intended to replace advice given to you by your health care provider. Make sure you discuss any questions you have with your health care provider. Document Revised: 07/10/2021 Document Reviewed: 07/10/2021 [employer] Patient Education 2023 [employer]. Follow Up Care 02/22/2024 14:36:40 With:BRYAN BELTRÁN, ROSETTA, URL Address: When: Unknown [facility] 03-31-2024 Note Patient Education Obstetrics and Gynecology Kegel Exercises Kegel exercises can help strengthen your pelvic floor muscles. The pelvic floor is a group of muscles that support your rectum, small intestine, and bladder. In females, pelvic floor muscles also help support the uterus. These muscles help you control the flow of urine and stool (feces). Kegel exercises are painless and simple. They do not require any equipment. Your provider may suggest Kegel exercises to: ??? Improve bladder and bowel control. ??? Improve sexual response. ??? Improve weak pelvic floor muscles after surgery to remove the uterus (hysterectomy) or after , in females. ??? Improve weak pelvic floor muscles after prostate gland removal or surgery, in males. Kegel exercises involve squeezing your pelvic floor muscles. These are the same muscles you squeeze when you try to stop the flow of urine or keep from passing gas. The exercises can be done while sitting, standing, or lying down, but it is best to vary your position. Ask your health care provider which exercises are safe for you. Do exercises exactly as told by your health care provider and adjust them as directed. Do not begin these exercises until told by your health care provider. Exercises How to do Kegel exercises: 1. Squeeze your pelvic floor muscles tight. You should feel a tight lift in your rectal area. If you are a female, you should also feel a tightness in your vaginal area. Keep your stomach, buttocks, and legs relaxed. 2. Hold the muscles tight for up to 10 seconds. 3. Breathe normally. 4. Relax your muscles for up to 10 seconds. 5. Repeat as told by your health care provider. Repeat this exercise daily as told by your health care provider. Continue to do this exercise for at least 4?6 weeks, or for as long as told by your health care provider. You may be referred to a physical therapist who can help you learn more about how to do Kegel exercises. Depending on your condition, your health care provider may recommend: ??? Varying how long you squeeze your muscles. ??? Doing several sets of exercises every day. ??? Doing exercises for several weeks. ??? Making Kegel exercises a part of your regular exercise routine. This information is not intended to replace advice given to you by your health care provider. Make sure you discuss any questions you have with your health care provider. Document Revised: 07/10/2021 Document Reviewed: 07/10/2021 [employer] Patient Education ? 2023 [employer]. Urology Cystoscopy Cystoscopy is a procedure that is used to help diagnose and sometimes treat conditions that affect the lower urinary tract. The lower urinary tract includes the bladder and the urethra. The urethra is the tube that drains urine from the bladder. Cystoscopy is done using a thin, tube-shaped instrument with a light and camera at the end (cystoscope). The cystoscope may be hard or flexible, depending on the goal of the procedure. The cystoscope is inserted through the urethra, into the bladder. Cystoscopy may be recommended if you have: ??? Urinary tract infections that keep coming back. ??? Blood in the urine (hematuria). ??? An inability to control when you urinate (urinary incontinence) or an overactive bladder. ??? Unusual cells found in a urine sample. ??? A blockage in the urethra, such as a urinary stone. ??? Painful urination. ??? An abnormality in the bladder found during an intravenous pyelogram (IVP) or CT scan. Cystoscopy may also be done to remove a sample of tissue to be examined under a microscope (biopsy). Tell a health care provider about: ??? Any allergies you have. ??? All medicines you are taking, including vitamins, herbs, eye drops, creams, and xken-hds-wzyuwoc medicines. ??? Any problems you or family members have had with anesthetic medicines. ??? Any blood disorders you have. ??? Any surgeries you have had. ??? Any medical conditions you have. ??? Whether you are or may be . What are the risks? Generally, this is a safe procedure. However, problems may occur, including: ??? Infection. ??? Bleeding. ??? Allergic reactions to medicines. ??? Damage to other structures or organs. What happens before the procedure? Medicines Ask your health care provider about: ??? Changing or stopping your regular medicines. This is especially important if you are taking diabetes medicines or blood thinners. ??? Taking medicines such as aspirin and ibuprofen. These medicines can thin your blood. Do not take these medicines unless your health care provider tells you to take them. ??? Taking uoff-ucz-xrhieoj medicines, vitamins, herbs, and supplements. Tests You may have an exam or testing, such as: ??? X-rays of the bladder, urethra, or kidneys. ??? CT scan of the abdomen or pelvis. ??? Urine tests to check for signs of infection. General instructions ??? Follow instructions fr (more content not included)... [facility] 01-26-2024 Note [facility] Cardiology Clinic Note Chief Complaint: Patient is here today for follow up [facility] ED visit. She was having chest pressure, [...] kidney disease, COPD (chronic obstructive pulmonary disease) ([facility]), Hypertension, Myocardial infarction ([facility]), and Obstructive sleep apnea (10/02/2022). [...] 479 g, Rfl (more content not included)... 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 She is on po bumex daily. For [...] sleep apnea 10/02/2022 SOBIA=17.7 events/hour; Pranav SaO2=76%; Ytzxav=845.0 lbs; BMI=52.7 kg/m2, Home Sleep Apnea Testing [...] the morning, afternoon, and at bedtime. omega 4-sgl-uue-fish oil 350 mg-235 mg- 90 mg-597 mg [...] not included)... [facility] 07-09-2023 Note [facility] Interventional Pain Management SUBJECTIVE: Subjective 07/09/23 CC: [...] since last visit she has seen cardiology assistant finance director for [place]. patient reports that overall she [...] at 1030. [facility] 03-26-2023 Note [facility] Interventional Pain Management SUBJECTIVE: Subjective 03/26/23 CC: [...] since last visit she has seen cardiology assistant finance director for [place]. patient reports that overall she [...] further. She was able to walk around [employer] store which she previously was not able [...] plans to dispo (more content not included)... [facility] 03-23-2023 Note [place] Cardiology Consul t Note Reason for visit: [...] kidney disease COPD (chronic obstructive pulmonary disease) ([facility]) Hypertension Myocardial infarction ([facility]) Obstructive sleep apnea 10/02/2022 SOBIA=17.7 events/hour; Pranav SaO2=76%; Hzglqf=601.0 lbs; BMI=52.7 kg/m2, Home Sleep Apnea Testing [...] not included)... [facility] 02-16-2023 Note [facility] Gastroenterolog y Follow-Up Patient Visit CHIEF [...] 1 year. Stool studies were submitted to [place], no results available. Ongoing altered BMs, however [...] with abdominal pain, bloating, and diarrhea. Sedation: [employer] [employer] Attending Physician: Dr. Dario Calderon Historian Research Assistant: Nancy Prado, Fellow Procedure Details: Informed consent [...] and Crohn's disease in her mother. Sedation: [employer] [facility] [employer] Attending Physician: Dr. Dario Calderon Findings: Poor [...] (more content not included)... [facility] Evaluation + Plan note No data available for this section [facility] Evaluation note Diagnosis Onset Date CKD (chronic kidney disease) stage 4, GFR 15-29 ml/min acute Hyperkalemia acute [id number] acute Secondary hyperparathyroidism acute Chronic kidney disease nonea [facility] Work Phone: Progress note No data available for this section [facility] Summary Purpose Family History No Family [...] disease) stage 4, GFR 15-29 ml/min Hyperkalemia [id number] Secondary hyperparathyroidism Chronic kidney disease Additional Source Comments INFORMATION SOURCE (unrecogn ized section and content) DATE CREATED AUTHOR 09/08/2017 [facility] DATE CREATED AUTHOR AUTHOR'S ORGANIZ ATION 09/27/2020 [facility] DATE CREATED AUTHOR AUTHOR'S ORGANIZ ATION 07/24/2022 [facility] DATE CREATED AUTHOR AUTHOR'S ORGANIZ ATION 02/11/2024 [facility] DATE CREATED AUTHOR AUTHOR'S ORGANIZ ATION 02/17/2024 [facility] DATE CREATED AUTHOR AUTHOR'S ORGANIZ ATION 04/30/2024 [facility] Care Teams (unrecognized sec tion and [...] be documented in a n alternate section No data available for this section FOR RECORDS PERTAINING TO PATIENTS WHO [...] BE BASED ON THE PRIMARY CLINICAL RECORDS. [employer] provides no warranty or guarantee of the accuracy or completeness of information in this document.
[2024-05-01 07:02] VITALS: BP 193/84; PULSE 82; TEMP 36.2; O2SAT 95
[2024-05-01] MEDS: 0.9 % SODIUM CHLORIDE 500 ML IV (07:14)
[2024-05-01] MEDS: METHYLPREDNISOLONE ACETATE 40 MG/ML VIAL 80 MG INJ (08:24)
[2024-05-01] MEDS: LIDOCAINE HCL 2% 400 MG/20 ML MDV 16 ML INJ (08:24)
[2024-05-01] MEDS: BUPIVACAINE HCL 0.25% PF 25 MG/10 ML VIAL 4 ML INJ (08:24)
--- NOTE | 2024-05-01 08:24 | P.ON_ITS ---
Date of procedure: 05/01/24 Pre-op diagnosis: Pain due to lumbar spondylosis without myelopathy Post-op diagnosis: same as pre-op Procedure: Procedure: Bilateral L4-5, L5-S1 radiofrequency ablation Medications: Bupivacaine 0.25% 6cc, lidocaine 2% 6cc, depomedrol 80mg The patient was seen and examined in the preoperative holding area.? The site was marked.? Written informed consent was obtained and placed on the chart.? The patient was brought to the medical procedure unit and placed in the prone position.? A timeout was completed verifying correct patient, procedure, positioning, and special requirements.? The skin overlying the target points, the designated medial branch, were prepped and draped in the usual sterile fashion.? The target point was achieved with a 20-gauge 15 cm with a 10 mm curved active tip radiofrequency cannula under direct fluoroscopic visualizati on.? The needle was inserted at level L4 on the right side. Needle tip position was confirmed with lateral fluoroscopic position.? Motor stimulation was carried out at 2 Hz up to 5 volts with the absence of extremity activity.? This was repeated at level L5, S1 on right side.?? Sensory stimulation was carried out.? Concordant pain was realized at the above- mentioned sites.? Then radiofrequency lesioning was carried out times 90 seconds at 80 degrees times 2 lesions at each level.? The radiofrequency probe was removed prior to cannula removal.? The above-mentioned injectate was placed in 1 mL increments.? The needle was removed. The same procedure, with the same steps, was then completed on the left side at the same levels. Insertion sites were covered.? The patient was taken to the postoperative recovery area and monitored for an appropriate length of time before being found suitable for discharge in the company of a responsible adult. Anesthesia: MAC Surgeon: Cande Garcia Pathology: none sent Condition: stable Disposition: no change
[2024-05-01 08:28] VITALS: BP 140/72; PULSE 85; TEMP 36.4; O2SAT 95
[2024-05-01 08:43] VITALS: BP 120/76; PULSE 70; TEMP 36.4; O2SAT 98
--- NOTE | 2024-05-01 09:20 | PC.NURSE ---
Pacemaker interrogation completed, spoke with [employer] rep [employer] and was instructed that patient is ready for discharge. Completed report to be faxed and placed on patients chart.
== END 2024-05-01 09:22 | disposition home or self-care (01) ==
PROVIDERS: PCP Family Medicine; Visit Provider Anesthesiology
DX: M47.816 Spondylosis without myelopathy or radiculopathy, lumbar region (principal)
CPT/HCPCS: 64635; 64636; J0665; J1010; J2704

== ENCOUNTER 2024-05-09 10:47 | Outpatient (OUT) | payer MEDICARE, SELFPAY ==
--- OUTSIDE RECORDS SUMMARY | 2024-05-09 11:06 | XMS_ITS | CCD ---
Author Organization [facility] Care Team Providers Care Compliance Spec Name Role Phone PHYSICIAN, DEFAULT Unavailable Unavailable PHYSICIAN, DEFAULT Unavailable Unavailable DEBBIE ARVIZU Unavailable Unavailable HOY ., DR LEWIS Consulting Unavailable HOY ., DR LEWIS Attending Unavailable HOY ., DR LEWIS Primary Care Unavailable HOY ., DR LEWIS Admitting Unavailable ALTHEIMER, DR RAJI Odonnell Consulting Unavailable HOY ., [...] Consulting Unavailable JOSEY KWOK Admitting Unavailable HOY ., DR LEWIS Primary Care Unavailable JOSEY KWOK Consulting Unavailable JOSEY KWOK Attending Unavailable JOSEY KWOK Consulting Unavailable HOLula ., DR LEWIS Primary Care Unavailable JOSEY KWOK Attending Unavailable JOSEY KWOK Admitting Unavailable HOY .DR LEWIS Primary Care Unavailable SAMSA ., AMANDA Attending Unavailable SAMSA ., AMANDA Admitting Unavailable SAMSA ., AMANDA Consulting Unavailable HOLula ., DR LEWIS Primary Care Unavailable JULIANNE .EUN Admitting [...] Unavailable HOY ., DR LEWIS Admitting Unavailable ALTHEIMER, DR RAJI Odonnell Consulting Unavailable ELTAHAWY, TATO Attending Unavailable JOSEY KWOK Attending Unavailable SUNDARJOSEY ALANIZ Referring Unavailable SUNDARJOSEY ALANIZ Attending Unavailable JOSE ANGEL MEEHAN Referring Unavailable JOSE ANGEL MEEHAN Attending Unavailable JOSE ANGEL MEEHAN Referring Unavailable JOSE ANGEL MEEHAN Referring Unavailable JOSE ANGEL MEEHAN Referring Unavailable JOSEY KWOK Referring Unavailable JOSE ANGEL MEEHAN Attending Unavailable NATALIA KUHN Attending Unavaila OLLIE Cary Attending Unavailable JOSE ANGEL MEEHAN Attending Unavailable Debbie Arvizu Primary Care Physician [phone] Radha BELTRÁN, Cande Venegas Attending Unavailable Radha BELTRÁN, Cande Venegas Attending Unavailable Debbie Arvizu MD Primary Care Provider [phone] MD ROSETTA ADAMS Attending Unav ailable MD ROSETTA ADAMS Attending Unav ailable Debbie Arvizu Referring Unavailable MD ROSETTA ADAMS Attending Unav ailable Allergies Allergy Classification Reported Allergen(s) Allergy Type Date of Onset Reaction(s) Facility (5 sources) Penicillins; Translations: [PENICILLINS] Drug allergy (disorder) 5 AOF, Unknown Reaction [facility] Repository (1 source) Adhesive Tape Allergy to substance 4 skin rash [facility] (3 sources) Adhesive bandage; Translations: [Adhesive Bandage] Drug allergy Weal (disorder) [facility] [place] Medications Current Medications Medication Drug Class(es) Dates Sig (Normalized) Sig (Original) [id number] 200 actuat albuterol 0.09 mg/actuat metered dose inhaler (7 sources) beta2-Adrenergic Agonist Start: 01-06-2024 take 2.5 [...] Refill(s) 0 Start Date: 11/25/22 Status: Ordered take 2 puff(s) by in halation every four hours albuterol HFA 90 mcg/act inhaler Inhale 2 puffs every 4 (four) hours if needed Active aspirin 81 mg delayed release oral tablet (4 sources) Platelet Aggregation Inhibitor, Nonsteroidal Anti-inflammatory Drug Start: 11-25-2022 take 1 tablet by mouth once daily aspirin 81 mg Oral EC Tab 81 mg = 1 tab(s), Oral, Daily, Refills(s) 0 Start Date: 11/25/22 Status: Ordered bumetanide 1 mg oral tablet (3 sources) Loop Diuretic Start: 11-25-2022 take 1 tablet by mouth once daily bumetanide 1 mg Tab 1 mg = 1 tab(s), Oral, Daily, Refills(s) 0 Start Date: 11/25/22 Status: Ordered calcium carbonate 1500 mg / cholecalciferol 0.01 mg oral tablet (2 sources) Vitamin D Start: 01-06-2024 take 2 tablets by mouth once daily in the morning Calcium Carbonate-Vitam in D3 Active 2 TAB PO Every morning January 06, 2024 12:00am Start: 07-20-2023 End: 07-19-2024 take 2 tablets by mouth in the morning Calcium Carb-Cholecalciferol 600-10 MG-MCG tablet Take 2 tablets by mouth in the morning. 07/20/2023 07/19/2024 Active carvedilol 25 mg oral tablet (3 sources) alpha-Adrenergic Florence, beta-Adrenergic [place] Start: 01-06-2024 [...] May diclofenac potassium 50 mg oral tablet (2 sources) Nonsteroidal Anti-inflammatory Drug Start: 11-25-2022 take 1 tablet by mouth once daily diclofenac potassium 50 mg oral tablet 50 mg = 1 tab(s), Oral, Daily, Refills(s) 0 Start Date: 11/25/22 Status: Ordered hydrALAZINE hydrochloride 100 mg oral tablet (4 sources) Arteriolar Vasodilator Start: 11-25-2022 take 1 tablet by mouth three times daily hydrALAZINE 100 mg oral tablet 100 mg = 1 tab(s), Oral, TID, Refills(s) 0 Start Date: 11/25/22 Status: Ordered hyoscyamine sulfate 0.125 mg oral tablet (1 source) Start: 01-06-2024 take 0.125 mg by mouth four times daily Hyoscyamine Sulfate Active 0.125 MG PO Four times daily January 06, 2024 12:00am isosorbide dinitrate 10 mg oral tablet (4 sources) Nitrate Vasodilator Start: 11-25-2022 take 1 [...] Ordered levothyroxine sodium 0.1 mg oral capsule (4 sources) l-Thyroxine Start: 01-06-2024 take 100 ug by mouth once daily Levothyroxine Active 100 MCG PO Daily January 06, 2024 12:00am Start: 11-25-2022 take 1 tablet by shaun th once daily levothyroxine 100 mcg (0.1 mg) Tab 100 mcg = 1 tab(s), Oral, Daily, Refills(s) 0 Start Date: 11/25/22 Status: Ordered take 1 tablet by shaun th before mealtime levothyroxine (Synthroid, Levoxyl) 100 MCG tablet Take 100 mcg by mouth in the morning. Take before meals. Active liothyronine (4 sources) l-Triiodothyronine Start: 01-06-2024 take 37.5 ug by mouth once daily Liothyronine Active 37.5 MCG PO Daily January 06, 2024 12:00am Start: 11-25-2022 take 1 tablet by shaun th once daily Cytomel 25 mcg Tab 25 mcg = 1 tab(s), Oral, Daily, Refills(s) 0 Start Date: 11/25/22 Status: Ordered take 1.5 tablets by mouth in the morning liothyronine (Cytomel) 25 MCG tablet Take 1.5 tablets by mouth in the morning. Active lisinopril 10 mg oral tablet (4 sources) Angiotensin Converting Enzyme Inhibitor Start: 03-02-2024 take 1 tablet by mouth in the morning lisinopril 10 MG tablet Take 10 mg by mouth in the morning. 03/02/2024 Active Start: 01-06-2024 take 10 mg by mouth once daily Lisinopril Active 10 MG PO Daily January 06, 2024 12:00am Start: 11-25-2022 take 1 tablet by shaun th once daily lisinopril 5 mg Tab 5 mg = 1 tab(s), Oral, Daily, Refills(s) 0 Start Date: 11/25/22 Status: Ordered lovastatin 20 mg oral tablet (4 sources) HMG-CoA Reductase Inhibitor Start: 11-25-2022 take 1 tablet by mouth once daily lovastatin 20 mg Tab 20 mg = 1 tab(s), Oral, Daily, Refills(s) 0 Start Date: 11/25/22 Status: Ordered ondansetron 4 mg disintegrating oral tablet (2 sources) Serotonin-3 Receptor Antagonist Start: 11-25-2022 take 1 tablet by mouth every six hours as needed for nausea ondansetron 4 mg Dis Tab 4 mg = 1 tab(s), Oral, q6hr, PRN Nausea/Vomiting, Refills(s) 0 Start Date: 11/25/22 Status: Ordered pantoprazole 40 mg delayed release oral tablet (3 sources) Proton Pump Inhibitor Start: 03-31-2024 take 1 tablet by mouth once daily Pantoprazole [address] Tab 40 mg = 1 tab(s), Oral, Daily Start Date: 03/31/24 Status: Ordered Start: 01-06-2024 take 40 mg by mouth once daily Pantoprazole Active 40 MG PO Daily January 06, 2024 12:00am traMADol hydrochloride 50 mg oral tablet (2 sources) Opioid Agonist Start: 08-09-2023 take 50 mg by mouth twice daily Tramadol Active 50 MG PO Twice daily January 06, 2024 12:00am Completed/Discontinued Medications Medication Drug Class(es) Dates Sig (Normalized) Sig (Original) betamethasone 0.5 mg/ml / clotrimazole 10 mg/ml topical cream (3 sources) Azole Antifungal, Corticosteroid Start: 03-31-2024 betamethasone-cl otrimazole Top 0.05%-1% Crm 15 gram Refill(s) 0 Start Date: 03/31/24 Status: Ordered Start: 01-06-2024 Clotrimazole-B etamethasone Active APPLIC TOPICAL January 06, 2024 12:00am Problems Active Problems Problem Classification Problem Date Documented Date Episodic/Chronic Calculus of urinary tract (4 sources) Kidney stone; Translations: [Calculus of kidney] Onset: 5 Episodic Cardiac dysrhythmias (10 sources) Supraventricular tachycardia; Translations: [Atrial fibrillation] Onset: 3 Chronic Chronic kidney disease (10 sources) Chronic kidney disease stage 4; Translations: [Chronic kidney disease, stage 4 (severe)] Onset: 4 01-06-2024 Chronic Chronic kidney disease (2 sources) Chronic kidney disease; Translations: [Chronic kidney disease, stage 3b] Onset: 4 Chronic obstructive pulmonary disease and bronchiectasis (2 sources) Chronic obstructive lung disease 11-25-2022 Chronic Conduction disorders (4 sources) Encounter for checking and testing of cardiac pacemaker pulse generator [battery]; Translations: [Presence of cardiac pacemaker] Onset: 4 Chronic Congestive heart failure; nonhypertensive (3 sources) Acute combined systolic (congestive) and diastolic (congestive) heart failure; Translations: [Unspecified diastolic (congestive) heart failure] Onset: 2 Chronic Coronary atherosclerosis and other heart disease (2 sources) Coronary arteriosclerosis 11-25-2022 Chronic Disorders of lipid metabolism (4 sources) Hyperlipidemia, unspecified; Translations: [Pure hypercholesterolemia, unspecified] Onset: 2 11-25-2022 Chronic Essential hypertension (5 sources) Hypertensive disorder; Translations: [Essential hypertension] Onset: 0 11-25-2022 Chronic Genitourinary symptoms and ill-defined conditions (4 sources) Stress incontinence (female) (male); Translations: [Female stress incontinence] Onset: 5 Chronic Hypertension with complications and secondary hypertension (5 sources) Hypertensive heart disease with heart failure; Translations: [Chronic kidney disease due to hypertension] Onset: 2 01-06-2024 Chronic Nutritional deficiencies (2 sources) Vitamin D deficiency, unspecified; Translations: [Vitamin D deficiency, unspecified] Onset: 4 Chronic Osteoporosis (6 sources) Age-related osteoporosis without current pathological fracture; Translations: [Other osteoporosis without current pathological fracture] Onset: 2 Chronic Other aftercare (2 sources) Long-term current use of aspirin; Translations: [buttermaker continuous churn (current) use of aspirin] Onset: 5 Episodic Other and unspecified benign neoplasm (2 sources) History of polyp of colon 11-25-2022 Episodic Other diseases of kidney and ureters (2 sources) Secondary hyperparathyroidism; Translations: [Secondary hyperparathyroidism of renal origin] Onset: 4 01-06-2024 Chronic Other diseases of kidney and ureters (1 source) Secondary hyperparathyroidism of renal origin; Translations: [Secondary hyperparathyroidism (of renal origin)] 01-06-2024 Chronic Other diseases of veins and lymphatics (1 source) Lymphedema, not elsewhere classified; Translations: [LYMPHEDEMA NOT ELSEWHERE CLASSIFIED] Onset: 2 Chronic Other lower respiratory disease (2 sources) Multiple nodules of lung 11-25-2022 Episodi c Other nutritional; endocrine; and metabolic disorders (2 sources) Morbid obesity 11-25-2022 Chronic Pulmonary heart disease (3 sources) Pulmonary hypertension; Translations: [Secondary pulmonary hypertension] Onset: 3 11-25-2022 Chronic Residual codes; unclassified (1 source) Obstructive sleep apnea syndrome; Translations: [Obstructive sleep apnea (adult) (pediatric)] Onset: 3 05-05-2024 Chronic Residual codes; unclassified (2 sources) History of operative procedure on lumbar spinal structure 03-20-2024 Episodic Screening and history of mental health and substance abuse codes (2 sources) Tobacco use and exposure - finding 11-25-2022 Chronic Screening and history of mental health and substance abuse codes (9 sources) Personal history of nicotine dependence; Translations: [H/O: Disorder] Onset: 2 Episodic Spondylosis; intervertebral disc disorders; other back problems (1 source) Lumbosacral spondylosis without myelopathy; Translations: [Spondylosis without myelopathy or radiculopathy, lumbosacral region] Onset: 2 05-05-2024 Chronic Thyroid disorders (3 sources) Hypothyroidism, unspecified; Translations: [Hypothyroidism] Onset: 2 [...] [Other persistent atrial fibrillation] Onset: 3 Unclassified (2 sources) Long-term current use of aspirin 03-31-2024 Past or Other Problems Problem Classification Problem Date Documented Date Episodic/Chronic Abdominal pain (3 sources) Epigastric pain; Translations: [Lower abdominal pain] Onset: 01-30-2022 Episodic Cardiac dysrhythmias (8 sources) Palpitations; Translations: [Bradycardia] Onset: 01-14-2022 Episodic Conditions associated with dizziness or vertigo (1 source) Lightheadedness; Translations: [Dizziness and giddiness] Onset: 07-27-2016 05-05-2024 Episodic Deficiency and other anemia (1 source) Anemia, unspecified; Translations: [ANEMIA UNSPECIFIED] Onset: 01-19-2022 Episodic E Codes: Cut/pierceb (1 source) Contact with other sharp object(s), not elsewhere classified, initial encounter; Translations: [[facility] SHRP OB NOT ELSW CLASS INI] Onset: 08-14-2021 Episodic Fluid and electrolyte disorders (5 sources) Hyperkalemia; Translations: [Hyperkalemia] Onset: 01-26-2024 01-06-2024 Episodic Malaise and fatigue (1 source) Fatigue; Translations: [Other fatigue] Onset: 07-27-2016 05-05-2024 Episodic Nonspecific chest pain (2 sources) Chest pain, unspecified; Translations: [Chest pain] Onset: 07-27-2016 05-05-2024 Episodic Open wounds of extremities (4 sources) Laceration without foreign body, right lower leg, initial encounter; Translations: [LACERATION W/O FB RT LOW LEG INIT] Onset: 08-12-2021 Episodic Other aftercare (1 source) Other buttermaker continuous churn (current) drug therapy; Translations: [[facility] OVERHEAD FOREMAN CURRENT DRUG THERAPY] Onset: 08-14-2021 Episodic Other [...] [SHORTNESS OF BREATH] Onset: 01-26-2022 Episodic Other lower respiratory disease (1 source) Dyspnea; Translations: [Dyspnea, unspecified] Onset: 07-27-2016 05-05-2024 Episodic Other screening for suspected conditions (not [...] UTERUS] Onset: 08-14-2021 Episodic Residual codes; unclassified (1 source) Edema; Translations: [Edema, unspecified] Onset: 07-27-2016 05-05-2024 Episodic Spondylosis; intervertebral disc disorders; other back problems (14 sources) Spinal stenosis, lumbar region with neurogenic [...] receive a (more content not included)... Normal [facility] Urology Office/Clinic Noteon 03-31-2024 Urology Office/Clinic Note [...] yrs, started at 17 yo stopped in 2016. Increased risk for UCC. No gross hematuria. 4. Aspirin long-term use (Z79.82: senior care (current) use of aspirin) ASA. No BTs. Has pacemaker. Hx of NE but was asx, not sure when it [...] Education Cystoscopy Injection Treatments for Urinary Incontinence Kegel Exercises I, Elvi Posadas, personally scribed for Dr. Rosetta Adams on 03/31/2024 15:10:07. . Portions of this record may have been created with voice recognition artificial intelligence software, specifically [employer] and or [employer]. Substitutions may have occurred due to the [...] due t (more content not included)... Normal [facility] Comment on above: Result Comment: Elec tronically Signed By: ROSETTA ADAMS MD\.br\Date and Time Signed: 03/31/24 15:13 EST\.br\Electronically Co-Signed By: Elvi Posadas\.br\Date and Time Co-Signed: 03/31/24 15:10 EST\.br\Electronically Co-Signed By: Elvi Posadas\.br\Date and Time Co-Signed: 03/31/24 15:10 EST Office Visiton 01-26-2024 Follow-up visit [id number] Brian Sadler se 1950 F Date Provider Department Center 01/26/2024 [facility], C[facility] Family History Problem Relation Age of Onset Other Mother Coronary artery disease Mother Other Mother Other Mother Other Father Hypertension Father Hyperlipidemia Father Other Daughter Family Status - Relation Status Age at Mother Father Daughter Level of Service:02605 [place] OFFICE/OUTPATIENT ESTABLISHED LOW MDM 20 MIN Normal [facility] MR LUMBAR SPINE WO CONTRASTo n 11-23-2023 [...] narrowing. Electronically signed: Arnol Cutler MD. Normal [facility] Comment on above: Order Comment: ORDER IN EPIC NURSNOTEon 11-23-2023 SANDIE Coughlin from [employer] prepped pacemaker. Patient verbalizes no issues with device. Monitor hooked up for continuous patient monitoring throughout the scan. Normal [facility] Office Visiton 10-26-2023 Follow-up visit [id number] Brian Sadler se 1950 F Date Provider Department Center 10/26/2023 JOSEY ARNOLD LEEANN [facility] Family History Problem Relation Age of Onset Other Mother Coronary artery disease Mother Other Mother Other Mother Other Father Hypertension Father Hyperlipidemia Father Other Daughter Family Status - Relation Status Age at Mother Father Daughter Level of Service:34926 [place] OFFICE/OUTPATIENT ESTABLISHED LOW MDM 20 MIN Normal [facility] Office Visiton 07-20-2023 Follow-up visit [id number] Brian Sadler se 1950 Date Provider Department Center 07/20/2023 OLLIE BRADSHAW [facility] NEPHRO Comprehensiv Family History Problem Relation Age of Onset Other Mother Coronary artery disease Mother Other Mother Other Mother Other Father Hypertension Father Hyperlipidemia Father Other Daughter Family Status - Relation Status Age at Mother Father Daughter Level of Service:66688 [place] OFFICE/OUTPATIENT ESTABLISHED LOW MDM 20 MIN Reason for Visit and Comments: Follow-up [[id number]] Normal [facility] CREATININE, URINE, RANDOMon 07-09-2023 Creatinine (U) [Mass/Vol] 142.0 mg/dL Normal 26-299 [facility] Comment on above: Performed By: #### L [id number] #### [facility] ([facility]) [address] [place] [address] Performed By: #### L [id number] ####[facility] ([facility])[address] [place] [address] Follow-Upon 07-09-2023 Follow-Up [id number] Brian Sadler se 1950 F Date Provider Department Center 07/09/2023 JOSE ANGEL LEE [facility] Family History Problem Relation Age of Onset Other Mother Coronary artery disease Mother Other Mother Other Mother Other Father Hypertension Father Hyperlipidemia Father Other Daughter Family Status - Relation Status Age at Mother Father Daughter Level of Service:19063 [place] OFFICE/OUTPATIENT ESTABLISHED LOW MDM 20 MIN Reason for Visit and Comments: Follow-up [[id number]] - F/U S/P TFESI S1 - 30% pain relief Normal [facility] MICROALBUMIN, URINE, RANDOMo n 07-09-2023 Albumin DL <= 20 mg/L (U) [Mass/Vol] 2.3 mg/dL Normal [facility] Comment on above: Performed By: #### L [id number] ####[facility] ([facility])[address] [place] [address] MICROALBUMIN/CREATI NINE (MG/G) IN URINE 16.2 mg/g Creat Normal 0.0-30.0 [facility] Comment on above: Performed By: #### L [id number] ####[facility] ([facility])[address] [place] [address] PROTEIN, URINE, RANDOMon Protein (U) [Mass/Vol] 16.6 mg/dL Normal [facility] Comment on above: Result Comment: Ther e are no established reference values for random urine specimens. Performed By: #### L [id number] #### [facility] ([facility]) [address] [place] [address] RENAL FUNCTION PANELon 07-08 Albumin [Mass/Vol] 3.9 g/dL Normal 3.5-5.7 [facility] Comment on above: Performed By: #### L [id number] ####[facility] [place] [address] Anion gap [Moles/Vol] 11 mmol/L Normal 7-20 [facility] Comment on above: Performed By: #### L [id number] ####[facility] ([facility])[address] [place] [address] CALCIUM (MG/DL) CORRECTED FOR ALBUMIN IN SER/PLAS 9.18 mg/dL Normal [facility] Comment on above: Performed By: #### L [id number] ####[facility] ([facility])[address] [place] [address] Calcium [Mass/Vol] 9.1 mg/dL Normal 8.6-10.3 [facility] Comment on above: Performed By: #### L [id number] ####[facility] ([facility])[address] [place] [address] Chloride [Moles/Vol] 109 mmol/L High 98-107 [facility] Comment on above: Performed By: #### L [id number] ####[facility] ([facility])[address] [place] [address] CO2 [Moles/Vol] 25 mmol/L Normal 21-31 [facility] Comment on above: Performed By: #### L [id number] ####[facility] ([facility])[address] [place] [address] Creatinine [Mass/Vol] 2.24 mg/dL High 0.60-1.20 [facility] Comment on above: Performed By: #### L [id number] ####[facility] ([facility])[address] [place] [address] FASTING? UNKNOWN Normal [facility] Comment on above: Performed By: #### L [id number] ####[facility] ([facility])[address] [place] [address] GLOMERULAR FILTRATION RATE ML/MIN/1.73 SQ M.PREDICTED 22.7 mL/min/1.73m*2 Low >60.0 [facility] Comment on above: Result Comment: The [facility]'s estimated glomerular filtration rate (eGFR) will no [...] of individuals. Performed By: #### L [id number] ####[facility] ([facility])[address] [place] [address] Glucose [Mass/Vol] 83 mg/dL Normal 70-100 [facility] Comment on above: Performed By: #### L [id number] ####[facility] ([facility])[address] [place] [address] Magnesium [Mass/Vol] 3.7 mg/dL Normal 2.5-5.0 [facility] Comment on above: Performed By: #### L [id number] ####[facility] [place] [address] Potassium [Moles/Vol] 5.8 mmol/L High 3.5-5.1 [facility] Comment on above: Performed By: #### L [id number] ####[facility] [place] [address] Sodium [Moles/Vol] 139 mmol/L Normal 136-145 [facility] Comment on above: Performed By: #### L [id number] ####[facility] [place] [address] Urea nitrogen [Mass/Vol] 46 mg/dL High 7-25 [facility] Comment on above: Performed By: #### L [id number] ####[facility] [place] [address] UREA NITROGEN/CREATININE (MASS RATIO) IN SER/PLAS 20.5 Normal [facility] Comment on above: Performed By: #### L [id number] ####[facility] ([facility])[address] [place] [address] TSHon 07-09-2023 THYROTROPIN (MIU/L) IN SER/PLAS BY DETECTION LIMIT <= 0.05 MIU/L 0.03 mIU/L Low 0.34-5.60 [facility] Comment on above: Performed By: #### L [id number] #### [facility] [address] [place] [address] Orders Onlyon 06-22-2023 Orders Only [id number] Brian Sadler se 1950 F Date Provider Department Center 06/22/2023 EMMANUEL BECK [facility] NEPHRO Comprehensiv Family History Problem Relation Age of Onset Other Mother Coronary artery disease Mother Other Mother Other Mother Other Father Hypertension Father Hyperlipidemia Father Other Daughter Family Status - Relation Status Age at Mother Father Daughter Normal [facility] ANESon 05-31-2023 ANES --- Attestation signed by [...] COPD (chronic obstructive pulmonary disease) ([facility]) Hypertension Myocardial infarction ([facility]) Obstructive sleep apnea 10/02/2022 SOBAI=17.7 events/hour; Pranav SaO2=76%; Xlditt=905.0 lbs; BMI=52.7 kg/m2, Home Sleep Apnea Testing on 09/25/2022 at [facility] [place] Principle problems: Patient Active Problem List Diagnosis Date Noted 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 Symptomatic bradycardia 01/01/2023 Other secondary pulmonary hypertension ([facility]) 12/15/2022 KATIE on CPAP 12/15/2022 Nonsustained paroxysmal ventricular tachycardia ([facility]) 11/30/2022 A-fib ([facility]) 04/21/2022 Spinal stenosis of lumbar region with neurogenic claudication 01/30/2022 Lower abdominal pain 01/30/2022 Spondylosis of lumbosacral region without myelopathy or radiculopathy 01/30/2022 Essential hypertension 01/25/2020 Chest pain 07/27/2016 Dyspnea 07/27/2016 Edema 07/27/2016 Fatigue 07/27/2016 Lightheadedness 07/27/2016 Obstructive sleep apnea 10/02/2022 VT (ventricular tachycardia) ([facility]) 04/29/2022 Clinical trial exam 04/23/2022 Allergies: Allergies Allergen Reactions Penicillins Other Yeast infection CLINICAL SYSTEMS EDUCATOR/Current Medications: (Not in a hospital admission) Current [...] prevent worse bloating. 479 g 3 omega 7-iny-mel-fish oil 350 mg-235 mg- 90 mg-597 mg [...] exam B (more content not included)... Normal [facility] HPon 05-31-2023 History Of Present Illness Vero [...] and Crohn's disease in her mother. Sedation: [facility] [place] Attending Physician: Dr. Dario Calderon Lighter Captain: Nancy Prado, Fellow Procedure Details Informed consent [...] included. Esophagogastroduod (more content not included)... Normal [facility] HP --- Attestation signed by Jose Angel Mehean MD at 05/31/2023 7:50 AM By using [...] COPD (chronic obstructive pulmonary disease) ([facility]), Hypertension, Myocardial infarction ([facility]), and Obstructive [...] Sedation: MAC Attending Physician: Dr. Dario Calderon Lighter Captain: Nancy Prado, Fellow Procedure Details Informed consent [...] Poor colon prep. (more content not included)... [facility] Prep for Procedureon 024 Prep for Procedure [id number] Brian Sadler se 1950 Date Provider Department [place] 05/24/2023 1629POONAM HAYNES MP PROC Medical [facility]avi Family History Problem Relation Age of Onset Other Mother Coronary artery disease Mother Other Mother Other Mother Other Father Hypertension Father Hyperlipidemia Father Other Daughter Family Status - Relation Status Age at Mother Father Daughter [facility] 36on 04-22-2023 36 Patient contacted an [...] sometimes takes 48 -72 hours for the doctors/CINDER PIT WORKER's to return messages. Apologized that we were not able to meet her needs and voiced that we understand her feelings and decision not to utilized services at this time [facility] 36on 04-19-2023 36 Vero has called, stating she is not feeling well, in Re: recurrent diarrhea /not feeling well and she mention a breathing test they may not work, she is looking for answers to why she is not feeling well in a lot of pain, please advise with patient [phone] ???This phone message was created by the ambulatory float staff. If you need air support operations operator follow up regarding this patient, please make your appropriate clinic staff member aware, Thank you??? [facility] Telephoneon 04-19-2023 Telephone [id number] Brian Sadler se M 1950 F Date Provider Department Center 04/19/2023 [id number] KUHN*MP GI [facility] Family History Problem Relation Age of Onset Other Mother Coronary artery disease Mother Other Mother Other Mother Other Father Hypertension Father Hyperlipidemia Father Other Daughter Family Status - Relation Status Age at Mother Father Daughter Normal [facility] Prep for Procedureon 024 Prep for Procedure [id number] Brian Sadler se 1950 F Date Provider Department Center 04/12/2023 Carlos-LEENA MASON MP PROC [facility] Family History Problem Relation Age of Onset Other Mother Coronary artery disease Mother Other Mother Other Mother Other Father Hypertension Father Hyperlipidemia Father Other Daughter Family Status - Relation Status Age at Mother Father Daughter Normal [facility] Prep for Procedureon 024 Prep for Procedure [id number] Brian Sadler se 1950 F Date Provider Department Center 03/31/2023 JOSE ANGEL LEE MP PROC Medical [facility] Family History Problem Relation Age of Onset Other Mother Coronary artery disease Mother Other Mother Other Mother Other Father Hypertension Father Hyperlipidemia Father Other Daughter Family Status - Relation Status Age at Mother Father Daughter Normal [facility] Follow-Upon 03-26-2023 Follow-Up [id number] Brian Sadler se 1950 F Date Provider Department Center 03/26/2023 JOSE ANGEL LEE MP [facility] Medical Pavi Family History Problem Relation Age of Onset Other Mother Coronary artery disease Mother Other Mother Other Mother Other Father Hypertension Father Hyperlipidemia Father Other Daughter Family Status - Relation Status Age at Mother Father Daughter Level of Service:69159 [place] OFFICE/OUTPATIENT ESTABLISHED LOW MDM 20 MIN () Reason for Visit and Comments: Follow-up [977360] - Physical Therapy only did a couple days of PT because of COPD and chest hurting Normal [facility] Office Visiton 03-23-2023 Follow-up visit [id number] Brian Salder se 1950 F Date Provider Department Center 03/23/2023 Halina-JOSEY KWOK LEEANN Reyes Family History Problem Relation Age of Onset Other Mother Coronary artery disease Mother Other Mother Other Mother Other Father Hypertension Father Hyperlipidemia Father Other Daughter Family Status - Relation Status Age at Mother Father Daughter Level of Service:83156 [place] OFFICE/OUTPATIENT ESTABLISHED LOW MDM 20 MIN Normal [facility] Center Letter (Out)on 02-23-2023 Letter (Out) [id number] Brian Sadler se 1950 Provider Department [place] 02/23/2023 [id number] PRADO GI [facility] Family History Problem Relation Age of Onset Other Mother Coronary artery disease Mother Other Mother Other Mother Other Father Hypertension Father Hyperlipidemia Father Other Daughter Family Status - Relation Status Age at Mother Father Daughter [facility] 36on 02-22-2023 36 Spoke with patient aniceto rodgers voiced understanding not to complete the MRI at this time due to kidneys. Advised that the patient contact the Endoscopy department to review questions regarding HBT. [facility] 36 ----- Message from Natalia Kuhn [...] we can do the MRE. Thank you. [facility] Orders Onlyon 2023 Orders Only [id number] Brian Sadler se 1950 [facility] Department [place] 2023 [id number] KUHN*NISHA GI [facility] Family History Problem Relation Age of Onset Other Mother Coronary artery disease Mother Other Mother Other Mother Other Father Hypertension Father Hyperlipidemia Father Other Daughter Family Status - Relation Status Age at Mother Father Daughter [facility] 36on 02-17-2023 36 Instruction sheet fo r HBT and US order mailed to the patient. I scanned the stool study results into patients chart and sent them into Tierra's basket. [facility] 36 ----- Message from Natalia Kuhn NP sent at 02/16/2023 7:59 PM EST ----- Gabe Esteves, Do you mind helping mailing her a Hydrogen Breath Test instruction packet and Gall bladder US orders to her house. Do you mind also calling [facility] and requesting all her stool study results from dec or jan. They never faxed us any results. They are important so I can further help her. Thank you so much. I really appreciate your help with this. Normal [facility] Orders Onlyon 02-17-2023 Orders Only [id number] Brian Sadler se 1950 F Date Provider Department Center 02/17/2023 [id number], HISTORICAL MP GI [facility] Family History Problem Relation Age of Onset Other Mother Coronary artery disease Mother Other Mother Other Mother Other Father Hypertension Father Hyperlipidemia Father Other Daughter Family Status - Relation Status Age at Mother Father Daughter Normal [facility] Telemedicineon 02-16-2023 Telemedicine [id number] Brian Sadler se 1950 F Date Provider Department Center 02/16/2023 [id number] KUHN*MP GI [facility] Family History Problem Relation Age of Onset Other Mother Coronary artery disease Mother Other Mother Other Mother Other Father Hypertension Father Hyperlipidemia Father Other Daughter Family Status - Relation Status Age at Mother Father Daughter Level of Service:39893 [place] OFFICE/OUTPATIENT ESTABLISHED HIGH MDM 40-54 MIN Normal [facility] CBC AUTO DIFFon 07-17-2022 BASO # 0.0 103/ul Normal 0.0-0.1 [facility] Comment on above: Performed By: #### C BC #### [facility] [address] [place] [address] Dr. Eusebia Moralez Basophils/100 WBC (Bld) 0.6 % Normal 0.2-2.0 [facility] Comment on above: Performed By: #### C BC #### [facility] [address] [place] [address] Dr. Eusebia Moralez EO # 0.2 103/ul Normal 0.0-0.7 [facility] Comment on above: Performed By: #### C BC #### [facility] [address] [place] [address] Dr. Eusebia Moralez Eosinophils/100 WBC (Bld) 2.2 % Normal 0.9-7.0 [facility] Comment on above: Performed By: #### C BC #### [facility] [address] [place] [address] Dr. Eusebia Moralez Erythrocyte distribution width (RBC) [Ratio] 13.0 % Normal 11.0-15.0 [facility] Comment on above: Performed By: #### C BC #### [facility] [address] [place] [address] Dr. Eusebia Moralez Hematocrit (Bld) [Volume fraction] 40.5 % Normal 36.0-48.0 [facility] Comment on above: Performed By: #### C BC #### [facility] [address] [place] [address] Dr. Eusebia Moralez Hemoglobin (Bld) [Mass/Vol] 12.7 g/dL Normal 12.0-16.0 [facility] Comment on above: Performed By: #### C BC #### [facility] [address] [place] [address] Dr. Eusebia Moralez IG # 0.02 10e3/ul Normal 0.00-0.03 [facility] Comment on above: Performed By: #### C BC #### [facility] [address] [place] [address] Dr. Eusebia Moralez IG % 0.3 % Normal 0.0-0.5 [facility] Comment on above: Performed By: #### C BC #### [facility] [address] [place] [address] Dr. Eusebia Moralez LYMPH # 1.4 103/ul Normal 1.2-3.8 [facility] Comment on above: Performed By: #### C BC #### [facility] [address] [place] [address] Dr. Eusebia Moralez Lymphocytes/100 WBC (Bld) 19.9 % Critically low 20.5-60.0 [facility] Comment on above: Performed By: #### C BC #### [facility] [address] [place] [address] Dr. Eusebia Moralez MANUAL DIFF REQ NO Normal [facility] Comment on above: Performed By: #### C BC #### [facility] [address] [place] [address] Dr. Eusebia Moralez MCH (RBC) [Entitic mass] 29.1 pg Normal 26.7-34.0 [facility] Comment on above: Performed By: #### C BC #### [facility] [address] [place] [address] Dr. Eusebia Moralez MCHC (RBC) [Mass/Vol] 31.4 g/dL Normal 29.9-35.2 [facility] Comment on above: Performed By: #### C BC #### [facility] [address] [place] [address] Dr. Eusebia Moralez MCV (RBC) [Entitic vol] 92.9 fL Normal 81.0-99.0 [facility] Comment on above: Performed By: #### C BC #### [facility] [address] [place] [address] Dr. Eusebia Moralez MONO # 0.7 103/ul Normal 0.3-0.8 [facility] Comment on above: Performed By: #### C BC #### [facility] [address] [place] [address] Dr. Eusebia Moralez Monocytes/100 WBC (Bld) 9.4 % Normal 1.7-12.0 [facility] Comment on above: Performed By: #### C BC #### [facility] [address] [place] [address] Dr. Eusebia Moralez NEUT # 4.7 103/ul Normal 1.4-6.5 [facility] Comment on above: Performed By: #### C BC #### [facility] [address] [place] [address] Dr. Eusebia Moralez Neutrophils/100 WBC (Bld) 67.6 % Normal 43.0-75.0 [facility] Comment on above: Performed By: #### C BC #### [facility] [address] [place] [address] Dr. Eusebia Moralez Platelet mean volume (Bld) [Entitic vol] 9.9 fL Normal 9.5-13.5 [facility] Comment on above: Performed By: #### C BC #### [facility] [address] [place] [address] Dr. Eusebia Moralez PLT 218 103/ul Normal 150-450 [facility] Comment on above: Performed By: #### C BC #### [facility] [address] [address] [address] Eusebia Moralez RBC 4.36 106/ul Normal 4.20-5.40 [facility] Comment on above: Performed By: #### C BC #### [facility] [address] [address] [address] Eusebia Moralez WBC 6.9 103/ul Normal 4.0-11.0 [facility] Comment on above: Performed By: #### C BC #### [facility] [address] [address] [address] Eusebia Moralez PROF CHEM 8 (BAS METB)on Anion gap [Moles/Vol] 9.0 mmol/L Normal [facility] Comment on above: Performed By: #### B MP #### [facility] [address] [place] [address] Dr. Eusebia Moralez Calcium [Mass/Vol] 9.2 mg/dL Normal 8.5-10.1 [facility] Comment on above: Performed By: #### B MP #### [facility] [address] [place] [address] Dr. Eusebia Moralez Chloride [Moles/Vol] 103 mmol/L Normal 98-107 [facility] Comment on above: Performed By: #### B MP #### [facility] [address] [place] [address] Dr. Eusebia Moralez CO2 [Moles/Vol] 32.9 mmol/L Critically high 21.0-32.0 [facility] Comment on above: Performed By: #### B MP #### [facility] [address] [place] [address] Dr. Eusebia Moralez Creatinine [Mass/Vol] 1.74 mg/dL Critically high 0.55-1.02 [facility] Comment on above: Performed By: #### B MP #### [facility] [address] [place] [address] Dr. Eusebia Moralez EGFR-AF KAZAKH 35 mL/min/1.73m2 Critically low >=60 [facility] Comment on above: Performed By: #### B MP #### [facility] [address] [address] [address] Eusebia Moralez EGFR-NON AF KAZAKH 29 mL/min/1.73m2 Critically low >=60 [facility] Comment on above: Performed By: #### B MP #### [facility] [address] [address] [address] Eusebia Moralez Glucose [Mass/Vol] 101 mg/dL Normal 74-106 [facility] Comment on above: Performed By: #### B MP #### [facility] [address] [address] [address] Eusebia Moralez Potassium [Moles/Vol] 3.9 mmol/L Normal 3.5-5.1 [facility] Comment on above: Performed By: #### B MP #### [facility] [address] [address] [address] Eusebia Moralez Sodium [Moles/Vol] 141 mmol/L Normal 136-145 [facility] Comment on above: Performed By: #### B MP #### [facility] [address] [address] [address] Eusebia Moralez Urea nitrogen [Mass/Vol] 34.0 mg/dL Critically high 7.0-18.0 [facility] Comment on above: Performed By: #### B MP #### [facility] [address] [address] [address] Eusebia Moralez Urea nitrogen/Creatinine [Mass ratio] 19.5 mg/mg Normal [facility] Comment on above: Performed By: #### B MP #### [facility] [address] [address] [address] Eusebia Moralez CBC AUTO DIFFon 07-02-2022 BASO # 0.1 103/ul Normal 0.0-0.1 [facility] Comment on above: Performed By: #### C BC ####[facility] [address] [address]Dr. Eusebia Moralez Basophils/100 WBC (Bld) 0.7 % Normal 0.2-2.0 [facility] Comment on above: Performed By: #### C BC ####[facility] [address] [address]Dr. Eusebia Moralez EO # 0.1 103/ul Normal 0.0-0.7 [facility] Comment on above: Performed By: #### C BC ####[facility] [address] [address]Dr. Eusebia Moralez Eosinophils/100 WBC (Bld) 1.8 % Normal 0.9-7.0 [facility] Comment on above: Performed By: #### C BC ####[facility] [address] [place], [place] [address]Dr. Eusebia Moralez Erythrocyte distribution width (RBC) [Ratio] 13.1 % Normal 11.0-15.0 [facility] Comment on above: Performed By: #### C BC ####[facility] [address] [place], [place] [address]Dr. Eusebia Moralez Hematocrit (Bld) [Volume fraction] 40.2 % Normal 36.0-48.0 [facility] Comment on above: Performed By: #### C BC ####[facility] [address] [place], [place] [address]Dr. Eusebia Moralez Hemoglobin (Bld) [Mass/Vol] 12.5 g/dL Normal 12.0-16.0 [facility] Comment on above: Performed By: #### C BC ####[facility] [address] [place], [place] [address]Dr. Eusebia Moralez IG # 0.01 10e3/ul Normal 0.00-0.03 [facility] Comment on above: Performed By: #### C BC ####[facility] [address] [place], [place] [address]Dr. Lisadenise Moralez IG % 0.1 % Normal 0.0-0.5 [facility] Comment on above: Performed By: #### C BC ####[facility] [address] [place], [place] [address]DrRadha Moralez LYMPH # 1.5 103/ul Normal 1.2-3.8 [facility] Comment on above: Performed By: #### C BC ####[facility] [address] [id number]. Lisadenise Moralez Lymphocytes/100 WBC (Bld) 22.6 % Normal 20.5-60.0 [facility] Comment on above: Performed By: #### C BC ####[facility] [address] [id number] Moralez MANUAL DIFF REQ NO Normal [facility] Comment on above: Performed By: #### C BC ####[facility] [address] [id number]. Eusebia Moralez MCH (RBC) [Entitic mass] 29.3 pg Normal 26.7-34.0 [facility] Comment on above: Performed By: #### C BC ####[facility] [address] [address]Dr. Eusebia Moralez MCHC (RBC) [Mass/Vol] 31.1 g/dL Normal 29.9-35.2 [facility] Comment on above: Performed By: #### C BC ####[facility] [address] [id number] Moralez MCV (RBC) [Entitic vol] 94.4 fL Normal 81.0-99.0 [facility] Comment on above: Performed By: #### C BC ####[facility] [address] [id number]. Eusebia Moralez MONO # 0.6 103/ul Normal 0.3-0.8 [facility] Comment on above: Performed By: #### C BC ####[facility] [address] [id number] Moralez Monocytes/100 WBC (Bld) 9.1 % Normal 1.7-12.0 [facility] Comment on above: Performed By: #### C BC ####[facility] [address] [place], [place] [address]DrRadha Moralez NEUT # 4.4 103/ul Normal 1.4-6.5 [facility] Comment on above: Performed By: #### C BC ####[facility] [address] [address]Dr. Eusebia Kirt Neutrophils/100 WBC (Bld) 65.7 % Normal 43.0-75.0 [facility] Comment on above: Performed By: #### C BC ####[facility] [address] [id number]. Eusebia Kirt Platelet mean volume (Bld) [Entitic vol] 9.6 fL Normal 9.5-13.5 [facility] Comment on above: Performed By: #### C BC ####[facility] [address] [address]Dr. Eusebia Moralez PLT 204 103/ul Normal 150-450 [facility] Comment on above: Performed By: #### C BC ####[facility] [address] [place], [place] [address]Dr. Eusebia Moralez RBC 4.26 106/ul Normal 4.20-5.40 [facility] Comment on above: Performed By: #### C BC ####[facility] [address] [place], [place] [address]Dr. Lisadenise Moralez WBC 6.7 103/ul Normal 4.0-11.0 [facility] Comment on above: Performed By: #### C BC ####[facility] [address] [id number] Moralez PROF CHEM 8 (BAS METB)on Anion gap [Moles/Vol] 11.2 mmol/L Normal [facility] Comment on above: Performed By: #### B MP ####[facility] [address] [id number] Moralez Calcium [Mass/Vol] 9.2 mg/dL Normal 8.5-10.1 [facility] Comment on above: Performed By: #### B MP ####[facility] [address] [id number] Moralez Chloride [Moles/Vol] 109 mmol/L Critically high 98-107 [facility] Comment on above: Performed By: #### B MP ####[facility] [address] [id number]. Lisadenise Kirt CO2 [Moles/Vol] 27.6 mmol/L Normal 21.0-32.0 [facility] Comment on above: Performed By: #### B MP ####[facility] [address] [id number]. Eusebia Moralez Creatinine [Mass/Vol] 1.49 mg/dL Critically high 0.55-1.02 [facility] Comment on above: Performed By: #### B MP ####[facility] [address] [address]Dr. Eusebia Moralez EGFR-AF KAZAKH 42 mL/min/1.73m2 Critically low >=60 [facility] Comment on above: Performed By: #### B MP ####[facility] [address] [place], [place] [address]Dr. Eusebia Moralez EGFR-NON AF KAZAKH 34 mL/min/1.73m2 Critically low >=60 [facility] Comment on above: Performed By: #### B MP ####[facility] [address] [place], [place] [address]Dr. Eusebia Moralez Glucose [Mass/Vol] 89 mg/dL Normal 74-106 [facility] Comment on above: Performed By: #### B MP ####[facility] [address] [place], [place] [address]Dr. Eusebia Moralez Potassium [Moles/Vol] 4.8 mmol/L Normal 3.5-5.1 [facility] Comment on above: Performed By: #### B MP ####[facility] [address] [place], [place] [address]Dr. Eusebia Moralez Sodium [Moles/Vol] 143 mmol/L Normal 136-145 [facility] Comment on above: Performed By: #### B MP ####[facility] [address] [place], [place] [id number]. Eusebia Moralez Urea nitrogen [Mass/Vol] 27.0 mg/dL Critically high 7.0-18.0 [facility] Comment on above: Performed By: #### B MP ####[facility] [address] [place], [place] [address]HnDr. Eusebia Moralez Urea nitrogen/Creatinine [Mass ratio] 18.1 mg/mg Normal [facility] Comment on above: Performed By: #### B MP ####[facility] [address] [place], [place] [address]OvDr. Eusebia Mroalez CT LUNG CANCER SCREENINGon 1 04-27-2021 CT [...] AMBAR MOON Date: 2022-02-24 08:15 Normal [facility] PROF CHEM 8 (BAS METB)on Anion gap [Moles/Vol] 9.7 mmol/L Normal [facility] Comment on above: Performed By: #### B MP #### [facility] [address] [place], [place] [address] Dr. Eusebia Moralez Calcium [Mass/Vol] 8.8 mg/dL Normal 8.5-10.1 [facility] Comment on above: Performed By: #### B MP #### [facility] [address] [place] [address] Dr. Eusebia Moralez Chloride [Moles/Vol] 107 mmol/L Normal 98-107 [facility] Comment on above: Performed By: #### B MP #### [facility] [address] [place] [address] [address] Eusebia Moralez CO2 [Moles/Vol] 29.5 mmol/L Normal 21.0-32.0 [facility] Comment on above: Performed By: #### B MP #### [facility] [address] [place] [address] Dr. Eusebia Moralez Creatinine [Mass/Vol] 1.83 mg/dL Critically high 0.55-1.02 [facility] Comment on above: Performed By: #### B MP #### [facility] [address] [address] [address] Eusebia Moralez EGFR-AF KAZAKH 33 mL/min/1.73m2 Critically low >=60 [facility] Comment on above: Performed By: #### B MP #### [facility] [address] [place] [address] Dr. Eusebia Moralez EGFR-NON AF KAZAKH 27 mL/min/1.73m2 Critically low >=60 [facility] Comment on above: Performed By: #### B MP #### [facility] [address] [address] [address] Eusebia Moralez Glucose [Mass/Vol] 87 mg/dL Normal 74-106 [facility] Comment on above: Performed By: #### B MP #### [facility] [address] [place] [address] [address] Eusebia Moralez Potassium [Moles/Vol] 5.2 mmol/L Critically high 3.5-5.1 [facility] Comment on above: Performed By: #### B MP #### [facility] [address] [address] [address] Eusebia Moralez Sodium [Moles/Vol] 141 mmol/L Normal 136-145 [facility] Comment on above: Performed By: #### B MP #### [facility] [address] [address] [address] Eusebia Moralez Urea nitrogen [Mass/Vol] 37.0 mg/dL Critically high 7.0-18.0 [facility] Comment on above: Performed By: #### B MP #### [facility] [address] [id number] Eusebia Moralez Urea nitrogen/Creatinine [Mass ratio] 20.2 mg/mg Normal [facility] Comment on above: Performed By: #### B MP #### [facility] [address] [address] [address] Eusebia Moralez NM STRESS/REST MULTIon 01-23 NM STRESS/REST MULTI Patient: VERO SADLER Exam Date: 01/23/2022 : 1950 Gender:F Ordering : DR DEBBIE ARVIZU . Admission #: [id number] Family : Order #: [id number] CLICK HERE TO VIEW EXAM RADIOLOGY REPORT [...] Harrison MD on 01/26/2022 at 13:45 Normal [facility] ECHOCARDIO M/2D COMPLETEon 1 03-23-2021 ECHOCARDIO M/2D COMPLETE Patient: VERO SADLER Exam Date: 01/21/2022 : 1950 Gender:F Ordering : DR DEBBIE ARVIZU . Admission #: [id number] Family : Order #: [id number] CLICK HERE TO VIEW EXAM ECHOCARDIOGRAM REPORT [...] Tato Salcido M.D. on 01/21/2022 at 09:17 [facility] XR DEXA BONE DENSITYon 01-21 XR [...] RAJI HARRISON Date: 2022-01-21 10:03 Normal [facility] BNPon 01-14-2022 Natriuretic peptide B (Bld) [Mass/Vol] 834.0 pg/mL Normal <=900.0 [facility] Comment on above: Performed By: #### T SH, BNP, CMP, T7, LIPID ####[facility] [address] [place] [address]Dr. Eusebia Moralez CBC AUTO DIFFon 01-14-2022 BASO # 0.0 103/ul Normal 0.0-0.1 [facility] Comment on above: Performed By: #### C BC #### [facility] [address] [place] [address] Dr. Eusebia Moralez Basophils/100 WBC (Bld) 0.4 % Normal 0.2-2.0 [facility] Comment on above: Performed By: #### C BC #### [facility] [address] [place] [address] Dr. Eusebia Moralez EO # 0.1 103/ul Normal 0.0-0.7 [facility] Comment on above: Performed By: #### C BC #### [facility] [address] [address] [address] Eusebia Moralez Eosinophils/100 WBC (Bld) 1.1 % Normal 0.9-7.0 [facility] Comment on above: Performed By: #### C BC #### [facility] [address] [place] [address] Dr. Eusebia Moralez Erythrocyte distribution width (RBC) [Ratio] 15.0 % Normal 11.0-15.0 [facility] Comment on above: Performed By: #### C BC #### [facility] [address] [place] [address] Dr. Eusebia Moralez Hematocrit (Bld) [Volume fraction] 39.6 % Normal 36.0-48.0 [facility] Comment on above: Performed By: #### C BC #### [facility] [address] [place] [address] Dr. Eusebia Moralez Hemoglobin (Bld) [Mass/Vol] 12.4 g/dL Normal 12.0-16.0 [facility] Comment on above: Performed By: #### C BC #### [facility] [address] [place] [address] Dr. Eusebia Moralez IG # 0.02 10e3/ul Normal 0.00-0.03 [facility] Comment on above: Performed By: #### C BC #### [facility] [address] [place] [address] Dr. Eusebia Moralez IG % 0.3 % Normal 0.0-0.5 [facility] Comment on above: Performed By: #### C BC #### [facility] [address] [place] [address] Dr. Eusebia Moralez LYMPH # 1.3 103/ul Normal 1.2-3.8 [facility] Comment on above: Performed By: #### C BC #### [facility] [address] [place] [address] Dr. Eusebia Moralez Lymphocytes/100 WBC (Bld) 17.9 % Critically low 20.5-60.0 [facility] Comment on above: Performed By: #### C BC #### [facility] [address] [place] [address] Dr. Eusebia Moralez MANUAL DIFF REQ NO Normal [facility] Comment on above: Performed By: #### C BC #### [facility] [address] [place] [address] Dr. Eusebia Moralez MCH (RBC) [Entitic mass] 29.8 pg Normal 26.7-34.0 [facility] Comment on above: Performed By: #### C BC #### [facility] [address] [place] [address] Dr. Eusebia Moralez MCHC (RBC) [Mass/Vol] 31.3 g/dL Normal 29.9-35.2 [facility] Comment on above: Performed By: #### C BC #### [facility] [address] [place] [address] Dr. Eusebia Moralez MCV (RBC) [Entitic vol] 95.2 fL Normal 81.0-99.0 [facility] Comment on above: Performed By: #### C BC #### [facility] [address] [place] [address] Dr. Eusebia Moralez MONO # 0.5 103/ul Normal 0.3-0.8 [facility] Comment on above: Performed By: #### C BC #### [facility] [address] [place] [address] Dr. Eusebia Moralez Monocytes/100 WBC (Bld) 7.0 % Normal 1.7-12.0 [facility] Comment on above: Performed By: #### C BC #### [facility] [address] [place] [address] Dr. Eusebia Moralez NEUT # 5.2 103/ul Normal 1.4-6.5 [facility] Comment on above: Performed By: #### C BC #### [facility] [address] [place] [address] Dr. Eusebia Moralez Neutrophils/100 WBC (Bld) 73.3 % Normal 43.0-75.0 [facility] Comment on above: Performed By: #### C BC #### [facility] [address] [place] [address] Dr. Eusebia Moralez Platelet mean volume (Bld) [Entitic vol] 9.5 fL Normal 9.5-13.5 [facility] Comment on above: Performed By: #### C BC #### [facility] [address] [place] [address] Dr. Eusebia Moralez PLT 188 103/ul Normal 150-450 [facility] Comment on above: Performed By: #### C BC #### [facility] [address] [place] [address] Dr. Eusebia Moralez RBC 4.16 106/ul Critically low 4.20-5.40 [facility] Comment on above: Performed By: #### C BC #### [facility] [address] [place] [address] [address] Eusebia Moralez WBC 7.0 103/ul Normal 4.0-11.0 [facility] Comment on above: Performed By: #### C BC #### [facility] [address] [place] [address] [address] Eusebia Moralez FREE THYROXINE INDEX T7on FTI 2.45 Normal 1.30-4.50 [facility] Comment on above: Performed By: #### T SH, BNP, CMP, T7, LIPID ####[facility] [address] [place] [address]Dr. Eusebia Moralez T3U 35.0 % Normal 30.0-39.0 [facility] Comment on above: Performed By: #### T SH, BNP, CMP, T7, LIPID ####[facility] [address] [place] [address]Dr. Eusebia Moralez T4 [Mass/Vol] 7.00 ug/dL Normal 4.80-13.90 [facility] Comment on above: Performed By: #### T SH, BNP, CMP, T7, LIPID ####[facility] [address] [place] [id number]. Eusebia Moralez IRONon 01-14-2022 Iron [Mass/Vol] 58.0 ug/dL Normal 50.0-170.0 [facility] Comment on above: Performed By: #### I MONIE #### [facility] [address] [place] [address] [address] Eusebia Moralez LIPID PROFILEon 01-14-2022 CHOL-HDL RATIO NORM SEE BELOW Normal [facility] Comment on above: Result Comment: 3.3 - 4.4 LOW RISK 4.4 - 7.1 AVERAGE RISK 7.1 - 11.0 MODERATE RISK >11.0 HIGH RISK Performed By: #### T SH, BNP, CMP, T7, LIPID ####[facility] [address] [place] [address]Dr. Yilan Moralez Cholesterol [Mass/Vol] 186 mg/dL Normal <=200 [facility] Comment on above: Performed By: #### T SH, BNP, CMP, T7, LIPID ####[facility] [address] [place] [address]Dr. Esuebia Moralez Cholesterol in HDL [Mass/Vol] 45 mg/dL Normal 40-60 [facility] Comment on above: Performed By: #### T SH, BNP, CMP, T7, LIPID ####[facility] [address] [place] [address]Dr. Eusebia Moralez Cholesterol in LDL [Mass/Vol] 118.4 mg/dL Normal [facility] Comment on above: Performed By: #### T SH, BNP, CMP, T7, LIPID ####[facility] [address] [place] [address]Dr. Eusebia Moralez Cholesterol.total/C holesterol in HDL [Mass ratio] 4.1 {ratio} Normal [facility] Comment on above: Performed By: #### T SH, BNP, CMP, T7, LIPID ####[facility] [address] [place] [address]Dr. Eusebia Moralez HDL NORMAL > or = 60 mg/dl - LO W CARDIOVASCULAR RISK <40 mg/dl - HIGH CARDIOVASCULAR RISK Normal [facility] Comment on above: Performed By: #### T SH, BNP, CMP, T7, LIPID ####[facility] [address] [place] [address]Dr. Eusebia Moralez LDL CALC NORMAL SEE BELOW Normal [facility] Comment on above: Result Comment: <100 mg/dl OPTIMAL 100 - 129 mg/dl NEAR OR ABOVE OPTIMAL 130 - 159 mg/dl BORDERLINE HIGH 160 - 189 mg/dl HIGH >190 mg/dl VERY HIGH Performed By: #### T SH, BNP, CMP, T7, LIPID ####[facility] [address] [place] [address]Dr. Eusebia Moralez Triglyceride [Mass/Vol] 113 mg/dL Normal <=150 [facility] Comment on above: Performed By: #### T SH, BNP, CMP, T7, LIPID ####[facility] [address] [place] [id number]. Eusebia Moralez VLDL CALC 22.6 mg/dL Normal [facility] Comment on above: Performed By: #### T SH, BNP, CMP, T7, LIPID ####[facility] [address] [place], [place] [address]PhDr. Eusebia Moralez PROF 14(COMP METB)on 022 Albumin [Mass/Vol] 3.3 g/dL Critically low 3.4-5.0 [facility] Comment on above: Performed By: #### T SH, BNP, CMP, T7, LIPID #### [facility] [address] [place] [address] [address] Eusebia Moralez Albumin/Globulin [Mass ratio] 0.9 {ratio} Normal [facility] Comment on above: Performed By: #### T SH, BNP, CMP, T7, LIPID #### [facility] [address] [place] [address] [address] Eusebia Moralez ALP [Catalytic activity/Vol] 81 U/L Normal 46-116 [facility] Comment on above: Performed By: #### T SH, BNP, CMP, T7, LIPID #### [facility] [address] [place] [address] [address] Eusebia Moralez ALT [Catalytic activity/Vol] 19 U/L Normal 14-59 [facility] Comment on above: Performed By: #### T SH, BNP, CMP, T7, LIPID #### [facility] [address] [place] [address] [address] Eusebia Moralez Anion gap [Moles/Vol] 12.3 mmol/L Normal [facility] Comment on above: Performed By: #### T SH, BNP, CMP, T7, LIPID #### [facility] [address] [place] [address] [address] Eusebia Moralez AST [Catalytic activity/Vol] 12 U/L Critically low 15-37 [facility] Comment on above: Performed By: #### T SH, BNP, CMP, T7, LIPID #### [facility] [address] [place] [address] [address] Eusebia Moralez Bilirubin [Mass/Vol] 0.4 mg/dL Normal 0.2-1.0 [facility] Comment on above: Performed By: #### T SH, BNP, CMP, T7, LIPID #### [facility] [address] [place] [address] Dr. Eusebia Moralez Calcium [Mass/Vol] 8.9 mg/dL Normal 8.5-10.1 [facility] Comment on above: Performed By: #### T SH, BNP, CMP, T7, LIPID #### [facility] [address] [place] [address] Dr. Eusebia Moralez Chloride [Moles/Vol] 106 mmol/L Normal 98-107 [facility] Comment on above: Performed By: #### T SH, BNP, CMP, T7, LIPID #### [facility] [address] [place] [address] Dr. Eusebia Moralez CO2 [Moles/Vol] 27.4 mmol/L Normal 21.0-32.0 [facility] Comment on above: Performed By: #### T SH, BNP, CMP, T7, LIPID #### [facility] [address] [place] [address] Dr. Eusebia Moralez Creatinine [Mass/Vol] 1.51 mg/dL Critically high 0.55-1.02 [facility] Comment on above: Performed By: #### T SH, BNP, CMP, T7, LIPID #### [facility] [address] [place] [address] Dr. Eusebia Moralez EGFR-AF KAZAKH 41 mL/min/1.73m2 Critically low >=60 [facility] Comment on above: Performed By: #### T SH, BNP, CMP, T7, LIPID #### [facility] [address] [place] [address] Dr. Eusebia Moralez EGFR-NON AF KAZAKH 34 mL/min/1.73m2 Critically low >=60 [facility] Comment on above: Performed By: #### T SH, BNP, CMP, T7, LIPID #### [facility] [address] [place] [address] Dr. Eusebia Moralez Globulin (S) [Mass/Vol] 3.5 g/dL Normal [facility] Comment on above: Performed By: #### T SH, BNP, CMP, T7, LIPID #### [facility] [address] [place] [address] [address] Eusebia Moralez Glucose [Mass/Vol] 129 mg/dL Critically high 74-106 [facility] Comment on above: Performed By: #### T SH, BNP, CMP, T7, LIPID #### [facility] [address] [place] [address] [address] Eusebia Moralez Potassium [Moles/Vol] 4.7 mmol/L Normal 3.5-5.1 [facility] Comment on above: Performed By: #### T SH, BNP, CMP, T7, LIPID #### [facility] [address] [place] [address] Dr. Eusebia Moralez Protein [Mass/Vol] 6.8 g/dL Normal 6.4-8.2 [facility] Comment on above: Performed By: #### T SH, BNP, CMP, T7, LIPID #### [facility] [address] [place] [address] Dr. Eusebia Moralez Sodium [Moles/Vol] 141 mmol/L Normal 136-145 [facility] Comment on above: Performed By: #### T SH, BNP, CMP, T7, LIPID #### [facility] [address] [place] [address] Dr. Eusebia Moralez Urea nitrogen [Mass/Vol] 37.0 mg/dL Critically high 7.0-18.0 [facility] Comment on above: Performed By: #### T SH, BNP, CMP, T7, LIPID #### [facility] [address] [place] [address] Dr. Eusebia Moralez Urea nitrogen/Creatinine [Mass ratio] 24.5 mg/mg Normal [facility] Comment on above: Performed By: #### T SH, BNP, CMP, T7, LIPID #### [facility] [address] [place] [address] Dr. Eusebia Moralez TSHon 01-14-2022 TSH 0.068 uIU/mL Critically low 0.358-3.740 [facility] Comment on above: Performed By: #### T SH, BNP, CMP, T7, LIPID ####[facility] [address] [place], [place] [address]Ab. Eusebia Moralez [facility]13 SARS-CoV-2 (COVID-19) RNA DEREK+probe Ql (Unsp spec) Not detected Normal NOT DETECTED [facility] Comment on above: Result Comment: This test is not yet approved or cleared by the [place] FDA. When there are no FDA-approved or cleared tests available, and other criteria are met, FDA can make tests available under an emergency access mechanism called an Emergency Use Authorization (EUA). The EUA for this test is supported by the Ice Guard Tester of Health and Human Service's (HHS's) declaration [...] with SARS-CoV-2. Performed By: #### C VDTBH ####[facility] [address] [place], [place] [address]Cj. Eusebia Moralez MRI LSPINE WO CONon 10-11-19 [...] by: AMBAR MOON Date: 2021-10-10 07:29 Normal [facility] Pulmonary Progress Noteo n 09-13-2020 [facility] Pulmonary Progress Note [facility] Pt Name: VERO SADLER [address] [place] [address] MR#: [id number] [place] [address] ACCT: [id number] PROGRESS NOTE- Pulmonary : [facility] Date of Service: 09/13/20 Text NAME: VERO SADLER MR#: [id number] DATE OF SERVICE: 09/13/2020 OUTPATIENT PULMONARY PROGRESS [...] disease, severity unknown. We will try to [facility] Pt Name: VERO SADLER [address] [place] [address] MR#: [id number] [place] [address] ACCT: [id number] PROGRESS NOTE- Pulmonary : [facility] [...] assist with the postoperative management if needed. MD MYKEL CARRASQUILLO/KELLIL/[id number] 2 CC: Dr. Rito Guerrero MD eSign Date and Time Tim Toscano MD Signature on File 09/26/20 1046 Normal [facility] GLYCO HEMOon 08-23-2020 HbA1c (Bld) [Mass fraction] 5.3 % Normal [facility] Comment on above: Result Comment: Milagro vidal Diagnosis HbA1c (%) --------- Diabetic > 6.4 Prediabetes 5.7-6.4 Normal < 5.7 Performed By: #### L 500.69172 #### Test performed at: [address] [address] CBC W/DIFFon 08-22-2020 BASO ABS 0.0 K/uL Normal 0.0-0.2 [facility] Comment on above: Performed By: #### L 200.68798 #### Test performed at: [address] [address] Basophils/100 WBC (Bld) 0.5 % Normal [facility] Comment on above: Performed By: #### L 200.29390 #### Test performed at: [address] [address] EOS ABS 0.1 K/uL Normal 0.0-0.5 [facility] Comment on above: Performed By: #### L 200.62899 #### Test performed at: [address] [address] Eosinophils/100 WBC (Bld) 1.2 % Normal [facility] Comment on above: Performed By: #### L 200.90843 #### Test performed at: [address] [address] Erythrocyte distribution width (RBC) [Ratio] 12.8 % Normal 11.5-14.5 [facility] Comment on above: Performed By: #### L 200.19846 #### Test performed at: [address] [address] Hematocrit (Bld) [Volume fraction] 40.1 % Normal 36.0-48.0 [facility] Comment on above: Performed By: #### L 200.22837 #### Test performed at: [address] [address] Hemoglobin (Bld) [Mass/Vol] 12.4 g/dL Normal 12.0-15.0 [facility] Comment on above: Performed By: #### L 200.45253 #### Test performed at: [address] [address] IG % 0.3 % Normal [facility] Comment on above: Performed By: #### L 200.78164 #### Test performed at: [address] [address] IG ABS 0.02 K/uL Normal 0-0.05 [facility] Comment on above: Performed By: #### L 200.15427 #### Test performed at: [address] [address] Lymphocytes (Bld) [#/Vol] 1.3 10*3/uL Normal 1.2-3.5 [facility] Comment on above: Performed By: #### L 200.32451 #### Test performed at: [address] [address] Lymphocytes/100 WBC (Bld) 16.9 % Normal [facility] Comment on above: Performed By: #### L 200.54681 #### Test performed at: [address] [address] MCH (RBC) [Entitic mass] 29.0 pg Normal 25.4-34.6 [facility] Comment on above: Performed By: #### L 200.53674 #### Test performed at: [address] [address] MCHC (RBC) [Mass/Vol] 30.9 g/dL Low 31.5-36.5 [facility] Comment on above: Performed By: #### L 200.63803 #### Test performed at: [address] [address] MCV (RBC) [Entitic vol] 93.7 fL Normal 79.0-98.0 [facility] Comment on above: Performed By: #### L 200.80852 #### Test performed at: [address] [address] MONO ABS 0.8 K/uL Normal 0.0-1.0 [facility] Comment on above: Performed By: #### L 200.34120 #### Test performed at: [address] [address] Monocytes/100 WBC (Bld) 9.7 % Normal [facility] Comment on above: Performed By: #### L 200.81149 #### Test performed at: [address] [address] NEUTROPHIL ABS 5.5 K/uL Normal 1.4-6.6 [facility] Comment on above: Performed By: #### L 200.56015 #### Test performed at: [address] [address] Neutrophils/100 WBC (Bld) 71.4 % Normal [facility] Comment on above: Performed By: #### L 200.91634 #### Test performed at: [address] [address] NRBC # 0.000 K/uL Normal 0-0.012 [facility] Comment on above: Performed By: #### L 200.38162 #### Test performed at: [address] [address] NRBC % 0.0 /100 WBC Normal 0-0.2 [facility] Comment on above: Performed By: #### L 200.19456 #### Test performed at: [address] [address] Platelet mean volume (Bld) [Entitic vol] 10.1 fL Normal 8.7-12.4 [facility] Comment on above: Performed By: #### L 200.85654 #### Test performed at: [address] [address] Platelets (Bld) [#/Vol] 236 10*3/uL Normal 140-440 [facility] Comment on above: Performed By: #### L 200.24044 #### Test performed at: [address] [address] RBC (Bld) [#/Vol] 4.28 10*6/uL Normal 3.5-5.5 [facility] Comment on above: Performed By: #### L 200.27700 #### Test performed at: [address] [address] WBC (Bld) [#/Vol] 7.7 10*3/uL Normal 3.9-11.0 [facility] Comment on above: Performed By: #### L 200.49352 #### Test performed at: [address] [address] CHEST PA/AP & LATERAL OR 2 V WSon 08-22-2020 CHEST PA/AP & LATERAL OR 2 VWS STUDY: CHEST PA/AP LATERAL OR 2 VWS; 08/22/2020 2:35 pm INDICATION: COPD. COMPARISON: None. ACCESSION NUMBER(S): [id number] ORDERING CLINICIAN: Ovidio Baez FINDINGS: The lungs are clear without pleural effusion. Borderline cardiomegaly. Otherwise unremarkable mediastinum, eron, and pulmonary vasculature. Thoracic degenerative changes are present. IMPRESSION: No active disease in the chest. Normal [facility] COMP META PANELon 08-22-2020 Albumin [Mass/Vol] 3.4 g/dL Normal 3.4-5.0 [facility] Comment on above: Performed By: #### L 500.45528, L500.41673, L500.60113 #### Test performed at: [address] [address] ALK PHOS TOTAL 88 U/L Normal 45-117 [facility] Comment on above: Performed By: #### L 500.51843, L500.10228, L500.35078 #### Test performed at: [address] [address] ALT [Catalytic activity/Vol] 17 U/L Normal 13-61 [facility] Comment on above: Performed By: #### L 500.48747, L500.19922, L500.40881 #### Test performed at: [address] [address] AST [Catalytic activity/Vol] 12 U/L Low 15-37 [facility] Comment on above: Performed By: #### L 500.70485, L500.87918, L500.12033 #### Test performed at: [address] [address] BILI TOTAL 0.5 mg/dL Normal 0.2-1.0 [facility] Comment on above: Performed By: #### L 500.04567, L500.82277, L500.83064 #### Test performed at: [address] [address] Calcium [Mass/Vol] 9.0 mg/dL Normal 8.5-10.1 [facility] Comment on above: Performed By: #### L 500.67297, L500.01975, L500.71904 #### Test performed at: [address] [address] Chloride [Moles/Vol] 107 mmol/L Normal 98-107 [facility] Comment on above: Performed By: #### L 500.24939, L500.90820, L500.33558 #### Test performed at: [address] [address] CO2 [Moles/Vol] 29 mmol/L Normal 21-32 [facility] Comment on above: Performed By: #### L 500.95496, L500.32047, L500.49099 #### Test performed at: [address] [address] Creatinine [Mass/Vol] 1.280 mg/dL High 0.550-1.020 [facility] Comment on above: Performed By: #### L 500.44919, L500.84767, L500.62368 #### Test performed at: [address] [address] Glucose [Mass/Vol] 90 mg/dL Normal 70-99 [facility] Comment on above: Result Comment: Fast ing GLUCOSE reference range has been updated per (ADA) Citizen Of [place] Diabetes Association's recommendation. 06/07/2018 Performed By: #### L 500.56285, L500.67757, L500.15677 #### Test performed at: [address] [address] Potassium [Moles/Vol] 4.4 mmol/L Normal 3.5-5.1 [facility] Comment on above: Performed By: #### L 500.91319, L500.74456, L500.59009 #### Test performed at: [address] [address] Protein [Mass/Vol] 6.8 g/dL Normal 6.4-8.2 [facility] Comment on above: Performed By: #### L 500.97860, L500.44100, L500.16684 #### Test performed at: [address] [address] Sodium [Moles/Vol] 142 mmol/L Normal 136-145 [facility] Comment on above: Performed By: #### L 500.63581, L500.94564, L500.39149 #### Test performed at: [place] [id number] Urea nitrogen [Mass/Vol] 21 mg/dL High 7-18 [facility] Comment on above: Performed By: #### L 500.97097, L500.86475, L500.06921 #### Test performed at: [place] [id number] GFR ESTIMATEon 08-22-2020 IF AMER 50 Low > 60 [facility] Comment on above: Result Comment: eGFR (Estimated GFR) Units of measure:mL/min/1.73 meters sq. *CALCULATION REVISED 01/01/2015;IDMS-traceable MDRD equation eGFR is derived from the reexpressed MDRD Study equation using the following parameters: serum creatinine, age, gender and race. An eGFR<60 mL/min/1.73m2 for >3 months is consistent with chronic kidney disease. Refer to KDOQI guidelines for clinical interpretation. Performed By: #### L 500.04358, L500.81434, L500.95694 #### Test performed at: [place] [address] IF non-AFR AMER 41 Low > 60 [facility] Comment on above: Performed By: #### L 500.40155, L500.83646, L500.18936 #### Test performed at: [place] [address] TSH ULTRA SENSon 08-22-2020 TSH ULTRA SENS < 0.005 Low 0.358-3.74 [facility] Comment on above: Performed By: #### L 500.70939, L500.40041, L500.27502 #### Test performed at: [address] [address] LUMB SP COMP W FLEX/EXT 6 VW Son 07-23-2020 LUMB SP COMP W FLEX/EXT 6 VWS STUDY: LUMB SP COMP W FLEX/EXT 6 VWS ; 07/23/2020 9:01 am INDICATION: PAIN. COMPARISON: None. ACCESSION NUMBER(S): [id number] ORDERING CLINICIAN: Sacha Guerrero FINDINGS: No fracture [...] of the lumbar spine without instability. Normal [facility] Vital Signs Date Time Vital Sign Value Performing Clinician Ted guerra 03-31-2024 14:50-0500 Blood Pressure Location ROSETTA ADAMS [facility] 03-31-2024 14:50-0500 Diastolic blood pressure 82 mm[Hg] ROSETTA ADAMS [facility] 03-31-2024 14:50-0500 Heart rate 86 /min ROSETTA ADAMS [facility] 03-31-2024 14:50-0500 Respiratory rate 16 /min ROSETTA ADAMS [facility] 03-31-2024 14:50-0500 Systolic blood pressure 152 mm[Hg] ROSETTA ADAMS [facility] 01-06-2024 13:02-0400 Body height 162.[address] [facility] 01-06-2024 13:02-0400 Body mass index (BMI) [Ratio] 50.5 kg/m2 [facility] 01-06-2024 13:02-0400 Body temperature 96.3 [degF] [facility] 01-06-2024 13:02-0400 Body weight 133.[address] [facility] 01-06-2024 13:02-0400 Diastolic blood pressure 90 mm[Hg] [facility] 01-06-2024 13:02-0400 Heart rate 81 /min [facility] 01-06-2024 13:02-0400 Respiratory rate 18 /min [facility] 01-06-2024 13:02-0400 SaO2% (BldA) [Mass fraction] 98 % [facility] 01-06-2024 13:02-0400 Systolic blood pressure 179 mm[Hg] [facility] Encounters Encounter Date Encounter Type Care Provider Facility Start: 05-19-2024 ambulatory MD ROSETTA ADAMS Facility:[facility] Start: 05-09-2024 End: 05-09-2024 Bamboo flowsmone Viramontes MD Work Phone: [facility] Start: 05-09-2024 End: 05-09-2024 Ankit flowsmone Viramontes MD Work Phone: [facility] Start: 05-05-2024 End: 05-05-2024 ambulatory MD ROSETTA ADAMS Facility:[facility] Start: 05-05-2024 End: 05-05-2024 Patient encounter procedure ROSETTA ADAMS [facility] Start: 05-01-2024 End: 05-01-2024 ambulatory Cande Garcia MD Facility:[facility] Start: 03-31-2024 End: 03-31-2024 ambulatory MD ROSETTA ADAMS [facility]: [facility] Start: 03-31-2024 End: 03-31-2024 Patient encounter procedure ROSETTA ADAMS [facility] Start: 02-22-2024 ambulatory MD ROSETTA ADAMS Facility: [facility] Start: 02-14-2024 End: 02-14-2024 ambulatory Cande Garcia MD Facility:[facility] Start: 02-08-2024 End: 02-08-2024 ambulatory [facility] Start: 01-26-2024 End: 01-26-2024 [facility]: 01-06-2024 End: 01-06-[address] [facility] Work Phone: Start: 01-06-2024 End: 01-06-2024 Patient encounter procedure [facility]phrology Javier Work Phone: Start: 11-23-2023 End: 11-23-2023 Encounter for other specified special examinations JOSE ANGEL MEEHAN [facility] Start: 11-23-2023 End: 11-23-2023 ambulatory JOSE ANGEL MEEHAN [facility] Start: 10-26-2023 End: 10-26-2023 ambulatory JOSEY [facility] Start: 07-20-2023 End: 07-20-2023 [facility] Start: 07-09-2023 ambulatory JOSE ANGEL MEEHAN [facility] Start: 06-30-2023 End: 06-30-2023 [facility] Start: 05-31-2023 End: 05-31-2023 ambulatory JOSE ANGEL MEEHAN [facility] Start: 03-26-2023 ambulatory JOSE ANGEL MEEHAN [facility] Start: 03-23-2023 End: 03-23-2023 ambulatory [facility] Start: 02-16-2023 End: 02-16-2023 ambulatory NATALIA KUHN [facility] Start: 07-17-2022 End: 07-18-2022 ambulatory JOSEY [...] Ambulatory DEFAULT PHYSICIAN Facility:[facility] Procedures Date Procedure Procedure Detail Performing Clinician Start: 02-09-2023 End: 02-09-2023 Colonoscopy ROSETTA MATUTE Start: 07-06-2018 Colonoscopy ROSETTA PEDRAZA-AMDENICE Cataract extraction and insertion of intraocular lens ROSETTA PARR-AMANK H/O: hysterectomy ROSETTA ZAMUDIO MILO-AMANKRA Hysterectomy ROSETTA PARR -AMDENICE Procedure ROSETTA PARR -AMDENICE Total hysterectomy ROSETTA N BABAK-AMDEINCE Plan of Treatment Date Care Activity Detail Author Start: 02-09-2033 Screening for malign ant neoplasm of colon [facility] Start: 05-09-2024 End: 05-09-2024 Patient encounter procedure 05/09/2024 8:40 AM EST Office Visit [facility] [address] [facility] [address] [place] [id number] Lakshmi Viramontes MD [address] [place] [address] Arrived [facility] Comment on above: Arrived Start: 11-14-2023 Influenza vaccination Influenza Vacc ine (#1) [facility] Start: 02-20-2016 Pneumococcal Vaccine : 65+ Years (1 of 1 - PCV) Pneumococcal Vaccine: 65+ Years (1 of 1 - PCV) [facility] Start: 1991 Screening for malign ant neoplasm of breast Mammogram [facility] Start: 1950 Screening for malign ant neoplasm of colon [facility] Renal function 2000 panel - Serum or Plasma [facility] Immunizations Immunization Date Immunization Notes Care Provider Fa cility 01-07-2021 SARS-CoV-2 (COVID-19 ) mRNA BNT-162b2 vax ROSETTA PARR-CHRIS [facility] [place] 12-17-2020 SARS-CoV-2 (COVID-19 ) mRNA BNT-162b2 kit ADAMS [facility] [place] Payers Date Payer Category Payer Medicare [id number] 2018 Private Health Insurance 2013 Medicare 1959 Medicare [id number] 1959 Unknown [id number] 1950 Unknown [id number] 2.16.84 0.1.523163.3.579.2.593 1950 Unknown [id number] 2.16.84 0.1.691570.3.579.2.593 1950 Unknown [id number] 2.16.84 0.1.804478.3.579.2.593 1951 Unknown [id number] 2.16.84 0.1.333017.3.579.2.593 1951 Unknown [id number] 2.16.84 0.1.905952.3.579.2.593 1951 Unknown [id number] 2.16.84 0.1.723456.3.579.2.593 1951 Unknown [id number] 2.16.84 0.1.880678.3.579.2.593 1951 Unknown [id number] 2.16.84 0.1.638339.3.579.2.593 1951 Unknown [id number] 2.16.84 0.1.738815.3.579.2.593 1951 Unknown [id number] 2.16.84 0.1.223073.3.579.2.593 1951 Unknown [id number] 2.16.84 0.1.689884.3.579.2.593 1951 Unknown [id number] 2.16.84 0.1.319272.3.579.2.593 1951 Unknown [id number] 2.16.84 0.1.120009.3.579.2.593 1951 Unknown [id number] 2.16.84 0.1.754220.3.579.2.593 1951 Unknown [id number] 2.16. 840.1.201559.3.579.2.196 1950 Unknown [id number] 2.16. 840.1.183881.3.579.2.196 1950 Unknown [id number] 2.16.8 40.1.012513.3.579.2.727 1950 Unknown [id number] 2.16.8 40.1.763713.3.579.2.727 1950 Unknown [id number] 2.16.8 40.1.839621.3.579.2.727 Unknown Unknown [id number] Social History Date Type Detail Facility Start: 01-06-2024 End: 03-31-2024 Tobacco smoking status MOIS Ex-smoker (finding) [facility] Start: 1950 Sex Assigned At Female [facility] Tobacco smoking status Never [facility] Sex Assigned At Female [facility] Tobacco smoking status MOIS Tobacco smoking consumption unknown [facility] Start: 1950 Sex assigned at Not on file [facility] Functional Status Date Assessment Result Facility 03-31-2024 Functional Status N/A [facility] Clinical Notes 02-16-2023 to 04-12-2024 Note Date & Type Note Facility 04-12-2024 Hospital Discharge instructions Follow Up Care 04/12/2024 08:02:27 With:BRYAN BELTRÁN, SASKIA SARGENT Address: When: Unknown [facility] 03-31-2024 Hospital Discharge instructions Patient Education 03/31/2024 [...] including vitamins, herbs, eye drops, creams, and ogcw-hjj-fsrrluh medicines. Any problems you or family members [...] provider tells you to take them. Taking meff-pqb-pfytupn medicines, vitamins, herbs, and supplements. Tests You [...] Follow these instructions at home: Medicines Take owue-jfu-gfkmymb and prescription medicines only as told by [...] provider. Document Revised: 11/12/2021 Document Reviewed: 10/11/2020 [employer] Patient Education 2023 [employer]. 03/31/2024 15:09:42 Injection Treatments for Urinary Incontinence [...] including vitamins, herbs, eye drops, creams, and wmty-vpz-owjrxzc medicines. Any problems you or family members [...] provider tells you to take them. Taking obpo-uzb-mngccmk medicines, vitamins, herbs, and supplements. General instructions [...] provider. Document Revised: 10/04/2020 Document Reviewed: 10/04/2020 [employer] Patient Education 2023 [place]. 03/31/2024 15:09:34 Kegel Exercises Kegel Exercises Kegel [...] provider. Document Revised: 07/10/2021 Document Reviewed: 07/10/2021 Elsevier Patient Education 2023 [employer] Follow Up Care 02/22/2024 14:36:40 With:BRYAN BELTRÁN, ROSETTA, FAUZIAL Address: When: Unknown [facility] 03-31-2024 Note Patient Education Obstetrics and Gynecology [...] provider. Document Revised: 07/10/2021 Document Reviewed: 07/10/2021 Elsevier Patient Education ? 2023 [place]. Urology Cystoscopy Cystoscopy is a procedure that [...] including vitamins, herbs, eye drops, creams, and qtdd-aso-yksclmh medicines. ??? Any problems you or family [...] tells you to take them. ??? Taking pwfy-yke-shhwdeu medicines, vitamins, herbs, and supplements. Tests You may have an exam or testing, such as: ??? X-rays of the bladder, urethra, or kidneys. ??? CT scan of the abdomen or pelvis. ??? Urine tests to check for signs of infection. General instructions ??? Follow instructions fr (more content not included)... [facility] 01-26-2024 Note [facility] Cardiology Clinic Note Chief Complaint: Patient is here today for follow up [facility] ED visit. She was having chest [...] 479 g, Rfl (more content not included)... [facility] 10-26-2023 Note [place] Cardiology Consul t Note Reason for visit: [...] sleep apnea 10/02/2022 SOBIA=17.7 events/hour; Pranav SaO2=76%; Xijtdh=299.0 lbs; BMI=52.7 kg/m2, Home Sleep Apnea Testing on 09/25/2022 at [facility] PSH: Past Surgical History: Procedure Laterality Date [...] Allergen Reactions Penicillins (more content not included)... [facility] 07-20-2023 Note Division of Nephrolo gy Vero [...] was recently taken off spironolactone by her fire watchman. She is on po bumex daily. For [...] doing fairly well, she denied any CP, PATLE, no worsening BLE. her BP been fluctuate, [...] COPD (chronic obstructive pulmonary disease) ([facility]) Hypertension Myocardial infarction ([facility]) Obstructive sleep apnea 10/02/2022 SOBIA=17.7 events/hour; Pranav SaO2=76%; Oqnlnq=726.0 lbs; BMI=52.7 kg/m2, Home Sleep Apnea Testing on 09/25/2022 at [facility] Family History Problem Relation Name Age of [...] the morning, afternoon, and at bedtime. omega 0-cae-qbu-fish oil 350 mg-235 mg- 90 mg-597 mg [...] past 168 hour(s)) (more content not included)... [facility] 07-09-2023 Note [facility] Interventional Pain Management SUBJECTIVE: Subjective 07/09/23 [...] since last visit she has seen cardiology air purifier servicer for [place]. patient reports that overall she [...] further. She was able to walk around [employer] which she previously was not able to do without taking long breaks. Reports improved sleep at night. Her back pain is significantly improved laying flat. Patient denies issues with incisions other than some bruising. Steri-Strips are still intact. Denies any fevers chills . Denies any drainage or discharge from incision. Patient reports that she becerra (more content not included)... [facility] 05-31-2023 Note Interventional Pain Management Nursing Note / Nurse Post-Call Note S/p SHANTE TFESI S1 Patient reports pain level 0. Pre procedure pain level 8 on 05/31/23. Denies problems or complications. Reminded of next appointment 07/09/23 at 1030. [facility] 03-26-2023 Note [facility] Interventional Pain Management SUBJECTIVE: Subjective 03/26/23 [...] since last visit she has seen cardiology air purifier servicer for [place]. patient reports that overall she [...] further. She was able to walk around [employer] which she previously was not able [...] plans to dispo (more content not included)... [facility] 03-23-2023 Note [place] Cardiology Consul t Note Reason for visit: [...] COPD (chronic obstructive pulmonary disease) ([facility]) Hypertension Myocardial infarction ([facility]) Obstructive sleep apnea 10/02/2022 SOBIA=17.7 events/hour; Pranav SaO2=76%; Afjpyt=946.0 lbs; BMI=52.7 kg/m2, Home Sleep Apnea Testing on 09/25/2022 at [facility] PSH: Past Surgical History: Procedure Laterality Date [...] on File Prio (more content not included)... [facility] 02-16-2023 Note [facility] Gastroenterolog [...] 1 year. Stool studies were submitted to [place], no results available. Ongoing altered BMs, however [...] with abdominal pain, bloating, and diarrhea. Sedation: [facility] Attending Physician: Dr. Dario Calderon Lighter Captain: Nancy Prado, Fellow Procedure Details: Informed consent [...] small external hemorrhoid (more content not included)... [facility] Evaluation + Plan note No data available for this section [facility] Evaluation note Diagnosis Onset Date CKD (chronic kidney disease) stage 4, GFR 15-29 ml/min acute Hyperkalemia acute [id number] acute Secondary hyperparathyroidism acute Chronic kidney disease nonea ctive [facility] Work Phone: Progress note No data available for this section [facility] Summary Purpose Family History No Family History [...] disease) stage 4, GFR 15-29 ml/min Hyperkalemia [id number] Secondary hyperparathyroidism Chronic kidney disease Additional Source Comments INFORMATION SOURCE (unrecogn ized section and content) DATE CREATED AUTHOR 09/08/2017 [facility] DATE CREATED AUTHOR AUTHOR'S ORGANIZ ATION 09/27/2020 [facility] DATE CREATED AUTHOR AUTHOR'S ORGANIZ ATION 07/24/2022 [facility] DATE CREATED AUTHOR AUTHOR'S ORGANIZ ATION 02/11/2024 [facility] DATE CREATED AUTHOR AUTHOR'S ORGANIZ ATION 05/06/[address] [facility] DATE CREATED AUTHOR AUTHOR'S ORGANIZ ATION 05/09/2024 [facility] Care Teams (unrecognized sec tion and content) Team Status: Active Member Role Status Dates Debbie Arvizu MD Primary Care Provider Active Team Status: Inactive Member Role Status Dates Debbie Arvizu MD Primary Care Provide r, Referring Provider Active Start: January 06, 2024 End: January 06, 2024 Lizette Schaffer MD Attending Provider Active Start : January 06, 2024 End: January 06, 2024 Compliance Spec Relationship Specialty Start Date End Date Debbie Arvizu MD [address] [place] [address] PCP - General Family Medicine 05/09/24 Goals (unrecognized section and content) Goals may be documented in a n alternate section No data available for this section No data available for this section [...] BE BASED ON THE PRIMARY CLINICAL RECORDS. [facility]. provides no warranty or guarantee of the accuracy or completeness of information in this document.
--- NOTE | 2024-05-09 11:15 | XR_ITS ---
The [address] [address] Patient Name: JUSTIN COLLINS MRN: [id number] date: 1950 Sex: F Assigned Patient Location: [facility] Current Patient Location: [facility] Accession/Order Number: [id number] Exam Date: 05/09/2024 12:47 Report Date: 05/09/2024 12:54 At the request of: JOHN MATHEWS MD Procedure: XR sinus min 3V PARANASAL SINUSES - 3 views COMPARISON: CT head 02/16/2020 CLINICAL DATA: Headaches. [place], Alondra's and lateral views were obtained. The paranasal sinuses, as visualized are normally pneumatized. There is no significant mucosal thickening or evidence of air-fluid levels. No obvious mastoid opacification is noted. No pathologic intracranial cages are seen. The bony structures are osteopenic. XR/XR sinus min 3V IMPRESSION: NO PLAIN FILM EVIDENCE OF SINUSITIS Impression dictated by: Kelly Lao M.D.05/09/2024 12:54 PM Dictation Location: [place] [address] Electronically authenticated by: [id number] Y Date: 05/09/2024 12:54
== END 2024-05-09 10:48 | disposition home or self-care (01) ==
LOC: RAD 10:48
PROVIDERS: PCP Family Medicine; Visit Provider Otolaryngology
DX: R51.9 Headache, unspecified (principal)
CPT/HCPCS: 70220

== ENCOUNTER 2024-05-29 12:40 | Outpatient (OUT) | payer MEDICARE, SELFPAY ==
--- NOTE | 2024-05-29 | CONS_ITS ---
CONSULTATION DATE: 05/29/2024 TO: Jeremiah Arvizu M.D. CHIEF COMPLAINT: Includes bilateral hip pain, lower back pain. HISTORY: She reports the pain as being 8/10, sharp in character, increased with activity such as standing, walking and performing transitioning maneuvers. She feels most comfortable in the semi-recumbent position. She reports climbing stairs is also uncomfortable, even climbing up on to a curb is uncomfortable. She does not mean she climbs stairs. She denies any change in bowel and bladder habits or new sensorimotor changes in her lower extremities. She uses a walker to help her ambulate. She denies having any recent falls. Her ROMAINE on today?s visit was 48%. MEDICATIONS: She continues to use Tylenol 1000 mg b.i.d. She is unable to use non-steroidal agents secondary to renal insufficiency. EXAM: Her examination is notable for patient having no clinical radiculopathy or myelopathy involving the lower extremities. Patient did have tenderness along the SI joints bilaterally. Has a positive bilateral pelvic rock test/compression test, a positive bilateral Gaenslen?s maneuver and FABERs sign. She has significant myalgia and myofascial spasm of the gluteus medius. IMPRESSION: Patient has chronic pain secondary to bilateral sacroiliitis. RECOMMENDATIONS: I recommend she consider therapeutic SI joint injection under fluoroscopic guidance. Gone over the details of the procedure with the patient. All her questions answered. She agrees to proceed with the outlined plan. As part of providing excellent, safe, comprehensive care, the following was completed at our patient's visit: 1. A medication reconciliation and review to ensure accurate knowledge of current/active medications, including asking our patients to inform us about any [id number] medications or herbal remedies/nutritional supplements/alternative remedies. 2. A review to specifically ensure our patients have had annual screening for: elevated body mass index (BMI, see intake chart for exact total), tobacco use, screening for depression, and screening for unhealthy alcohol use. When screening is concerning, patients are provided with education and the specific recommendation to discuss the concerning health issue and treatment options with their primary care provider. ANDREW
== END 2024-05-29 12:41 | disposition home or self-care (01) ==
LOC: PM 12:41
PROVIDERS: PCP Family Medicine; Visit Provider Anesthesiology Pain Medicine
DX: M46.1 Sacroiliitis, not elsewhere classified (principal)
CPT/HCPCS: G0463

== ENCOUNTER 2024-06-20 10:33 | Outpatient (OUT) | payer MEDICARE, SELFPAY ==
--- OUTSIDE RECORDS SUMMARY | 2024-06-20 10:42 | XMS_ITS | CCD ---
Author Organization [facility] Team Providers Care Vp Informatics Name Role Phone PHYSICIAN, DEFAULT Unavailable Unavailable PHYSICIAN, DEFAULT Unavailable Unavailable DEBBIE ARVIZU Unavailable Unavailable HOY ., DR LEWIS Consulting Unavailable HOY ., DR LEWIS Attending Unavailable HOY ., DR LEWIS Primary Care Unavailable HOY ., DR LEWIS Admitting Unavailable CRESTON, DR RAJI Odonnell Consulting Unavailable HOY ., DR LEWIS Consulting Unavailable HOY ., DR LEWIS Attending Unavailable HOY ., DR LEWIS Primary Care Unavailable HOY ., DR LEWIS Admitting Unavailable HOY ., DR LEWIS Primary Care Unavailable HOY ., DR LEWIS Consulting Unavailable BRYANT, CAPO Admitting Unavailable CAPO HURTADO Attending Unavailable HOY [...] Unavailable HOY ., DR LEWIS Admitting Unavailable CRESTON, DR RAJI Odonnell Consulting Unavailable Debbie Arvizu Primary Care Physician [phone] Radha BELTRÁN, Cande Venegas Attending Unavailable Radha BELTRÁN, Cande Venegas Attending Unavailable Debbie Arvizu MD Primary Care Provider [phone] JOHN MATHEWS Attending Unavailable DEBBIE ARVIZU Referring Unavailable JOSE ANGEL MEEHAN Attending Unavailable JOSE ANGEL MEEHAN Referring Unavailable JOSE ANGEL MEEHAN J. Referring Unavailable JOSE ANGEL MEEHAN Referring Unavailable JOSE ANGEL MEEHAN Referring Unavailable JOSEY KWOK Attending Unavailable JOSEY KWOK Referring Unavailable ELTAELINA, SRIKANTHAB Attending Unavailable JOSEY KWOK Attending Unavailable JOSEY KWOK Referring Unavailable SHEFALIJOSE ANGEL MORGAN Attending Unavailable OLLIE FELTON Attending Unavailable KAROLYN-CHRIS, ROSETTA Attending Unavail able Debbie Arvizu Referring Unavailable NKANSAH-AMANKRA, ROSETTA Attending Unavail able NKANSAH-AMJEAN-PIERRERAELSANA Attending Unavail able Allergies Allergy Classification Reported Allergen(s) Allergy Type Date of Onset Reaction(s) Facility (5 sources) Penicillins; Translations: [PENICILLINS] Drug allergy (disorder) 5 AOF, Unknown Reaction [facility] Rep[facility] (1 source) Adhesive Tape Allergy to substance 4 skin rash [facility] (3 sources) Adhesive bandage; Translations: [Adhesive Bandage] Drug allergy Weal (disorder) [facility] (6 sources) Penicillins Drug Allergy 2 [facility] Medications Current Medications Medication Drug Class(es) Dates Sig (Normalized) Sig (Original) [id number] 200 actuat albuterol 0.09 mg/actuat metered dose inhaler (13 sources) beta2-Adrenergic Agonist Start: 01-06-2024 take 2.5 [...] aspirin 81 mg delayed release oral tablet (10 sources) Platelet Aggregation Inhibitor, Nonsteroidal Anti-inflammatory Drug Start: 11-25-2022 take 1 tablet by mouth once daily aspirin 81 mg Oral EC Tab 81 mg = 1 tab(s), Oral, Daily, Refills(s) 0 Start Date: 11/25/22 Status: Ordered azelastine hydrochloride 0.137 mg/actuat metered dose nasal spray (2 sources) Histamine-1 Receptor Antagonist Start: 06-08-2024 Azelastine HCl 137 MCG/SPRAY solution every 12 (twelve) hours 06/08/2024 Active bumetanide 1 mg oral tablet (3 sources) Loop Diuretic Start: 11-25-2022 take 1 tablet by mouth once daily bumetanide 1 mg Tab 1 mg = 1 tab(s), Oral, Daily, Refills(s) 0 Start Date: 11/25/22 Status: Ordered calcium carbonate 1500 mg / cholecalciferol 0.01 mg oral tablet (8 sources) Vitamin D Start: 01-06-2024 take 2 [...] Refills(s) 0 Start Date: 11/25/22 Status: Ordered fluticasone propionate 0.05 mg/actuat metered dose nasal spray (6 sources) Corticosteroid Start: 05-09-2024 End: 06-20-2024 fluticasone (Flonase) 50 MCG/ACT nasal spray Indications: OME (otitis media with effusion), right 2 sprays on the right twice daily. Shake gently. Before first use, prime pump. After use, clean tip and replace cap. 48 g 3 05/09/2024 06/20/2024 Discontinued (Side effects) hydrALAZINE hydrochloride 100 mg oral tablet (6 sources) Arteriolar Vasodilator Start: 11-25-2022 End: 05-09-2024 take 1 tablet by mouth three times [...] Ordered levothyroxine sodium 0.1 mg oral capsule (10 sources) l-Thyroxine Start: 01-06-2024 take 100 ug [...] the morning. Take before meals. Active liothyronine (10 sources) l-Triiodothyronine Start: 01-06-2024 take 37.5 ug [...] morning. Active lisinopril 10 mg oral tablet (10 sources) Angiotensin Converting Enzyme Inhibitor Start: 03-02-2024 [...] Status: Ordered lovastatin 20 mg oral tablet (10 sources) HMG-CoA Reductase Inhibitor Start: 11-25-2022 take [...] 12:00am traMADol hydrochloride 50 mg oral tablet (8 sources) Opioid Agonist Start: 08-09-2023 take 1 tablet by mouth twice daily as needed traMADol (Ultram) 50 MG tablet TAKE 1 TABLET BY MOUTH TWICE A DAY NEEDED FOR 30 DAYS 08/09/2023 Active Completed/Discontinued Medications Medication Drug Class(es) Dates Sig [...] Documented Date Episodic/Chronic Calculus of urinary tract (10 sources) Kidney stone; Translations: [Calculus of kidney] Onset: 5 Episodic Cardiac dysrhythmias (20 sources) Supraventricular tachycardia; Translations: [Atrial fibrillation] Onset: 3 Chronic Chronic kidney disease (20 sources) Chronic kidney disease stage 4; Translations: [Chronic kidney disease, stage 4 (severe)] Onset: 4 01-06-2024 Chronic Chronic kidney disease (2 sources) Chronic kidney disease; Translations: [Chronic kidney disease, stage 3b] Onset: 4 Chronic obstructive pulmonary disease and bronchiectasis (8 sources) Chronic obstructive lung disease; Translations: [Chronic obstructive pulmonary disease, unspecified] Onset: 5 11-25-2022 Chronic Conduction disorders (4 sources) Encounter for checking and testing of cardiac pacemaker pulse generator [battery]; Translations: [Presence of cardiac pacemaker] Onset: 4 Chronic Congestive heart failure; nonhypertensive (3 sources) Acute combined systolic (congestive) and diastolic (congestive) heart failure; Translations: [Unspecified diastolic (congestive) heart failure] Onset: 2 Chronic Coronary atherosclerosis and other heart disease (8 sources) Coronary arteriosclerosis; Translations: [Atherosclerotic heart disease of cabazon coronary artery without angina pectoris] Onset: 5 11-25-2022 Chronic Disorders of lipid metabolism (10 sources) Hyperlipidemia, unspecified; Translations: [Pure hypercholesterolemia, unspecified] Onset: 2 11-25-2022 Chronic Essential hypertension (11 sources) Hypertensive disorder; Translations: [Essential hypertension] Onset: 0 11-25-2022 Chronic Genitourinary symptoms and ill-defined conditions (10 sources) Stress incontinence (female) (male); Translations: [Female stress incontinence] Onset: 5 Chronic Headache; including migraine (2 sources) Headache; Translations: [Nonintractable headache, unspecified chronicity pattern, unspecified headache type] 05-09-2024 Episodic Hypertension with complications and secondary hypertension (5 sources) Hypertensive heart disease with heart failure; Translations: [Chronic kidney disease due to hypertension] Onset: 2 01-06-2024 Chronic Nutritional deficiencies (2 sources) Vitamin D deficiency, unspecified; Translations: [Vitamin D deficiency, unspecified] Onset: 4 Chronic Osteoporosis (6 sources) Age-related osteoporosis without current pathological fracture; Translations: [Other osteoporosis without current pathological fracture] Onset: 2 Chronic Other aftercare (8 sources) Long-term current use of aspirin; Translations: [FCI (current) use of aspirin] Onset: 5 Episodic Other and unspecified benign neoplasm (8 sources) History of polyp of colon; Translations: [History of colon polyps] Onset: 5 11-25-2022 Episodic Other diseases of kidney and ureters (8 sources) Secondary hyperparathyroidism; Translations: [Secondary hyperparathyroidism of renal origin] Onset: 4 01-06-2024 Chronic Other diseases of kidney and ureters (1 source) Secondary hyperparathyroidism of renal origin; Translations: [Secondary hyperparathyroidism (of renal origin)] 01-06-2024 Chronic Other diseases of veins and lymphatics (1 source) Lymphedema, not elsewhere classified; Translations: [LYMPHEDEMA NOT ELSEWHERE CLASSIFIED] Onset: 2 Chronic Other ear and sense organ disorders (2 sources) Mixed conductive and sensorineural hearing loss, unilateral, right ear, with unrestricted hearing on the contralateral side; Translations: [Mixed hearing loss, unilateral] 06-20-2024 Chronic Other lower respiratory disease (8 sources) Multiple nodules of lung; Translations: [Other nonspecific abnormal finding of lung field] Onset: 5 11-25-2022 Episodic Other nutritional; endocrine; and metabolic disorders (8 sources) Morbid obesity; Translations: [Morbid (severe) obesity due to excess calories] Onset: 5 11-25-2022 Chronic Otitis media and related conditions (6 sources) Otitis media; Translations: [Unspecified nonsuppurative otitis media, right ear] 05-09-2024 Episodic Pulmonary heart disease (9 sources) Pulmonary hypertension; Translations: [Secondary pulmonary hypertension] Onset: 3 11-25-2022 Chronic Residual codes; unclassified (7 sources) Obstructive sleep apnea syndrome; Translations: [Obstructive sleep apnea (adult) (pediatric)] Onset: 3 05-05-2024 Chronic Residual codes; unclassified (8 sources) History of operative procedure on lumbar spinal structure; Translations: [Other specified postprocedural states] Onset: 5 03-20-2024 Episodic Screening and history of mental health and substance abuse codes (2 sources) Tobacco use and exposure - finding 11-25-2022 Chronic Screening and history of mental health and substance abuse codes (20 sources) Personal history of nicotine dependence; Translations: [H/O: Disorder] Onset: 2 Episodic Spondylosis; intervertebral disc disorders; other back problems (7 sources) Lumbosacral spondylosis without myelopathy; Translations: [Spondylosis without myelopathy or radiculopathy, lumbosacral region] Onset: 2 05-05-2024 Chronic Thyroid disorders (9 sources) Hypothyroidism, unspecified; Translations: [Hypothyroidism] Onset: 2 11-25-2022 Chronic Unclassified (3 sources) CONTACT W/AND (SUSP) EXPOS COVID-19; Translations: [CONTACT W/AND (SUSP) EXPOS COVID-19] Onset: 2 Unclassified (1 source) COUGH, UNSPECIFIED; Translations: [COUGH, UNSPECIFIED] Onset: 2 Unclassified (2 sources) Long-term current use of aspirin 03-31-2024 Unclassified (1 source) Vertebrogenic low back pain; Translations: [Vertebrogenic low back pain] Onset: 4 Unclassified (2 sources) Other persistent atrial fibrillation; Translations: [Other persistent atrial fibrillation] Onset: 3 Past or Other Problems Problem Classification Problem Date Documented Date Episodic/Chronic Abdominal pain (9 sources) Lower abdominal pain; Translations: [Lower abdominal pain, unspecified] Onset: 01-30-2022 05-05-2024 Episodic Cardiac dysrhythmias (14 sources) Palpitations; Translations: [Bradycardia] Onset: 01-14-2022 Episodic Conditions associated with dizziness or vertigo (7 sources) Lightheadedness; Translations: [Dizziness and giddiness] Onset: 07-27-2016 05-05-2024 Episodic Deficiency and other anemia (1 source) Anemia, unspecified; Translations: [ANEMIA UNSPECIFIED] Onset: 01-19-2022 Episodic E Codes: Cut/pierceb (1 source) Contact with other sharp object(s), not elsewhere classified, initial encounter; Translations: [[facility] SHRP OB NOT ELSW CLASS INI] Onset: 08-14-2021 Episodic Fluid and electrolyte disorders (11 sources) Hyperkalemia; Translations: [Hyperkalemia] Onset: 01-26-2024 01-06-2024 Episodic Malaise and fatigue (7 sources) Fatigue; Translations: [Other fatigue] Onset: 07-27-2016 05-05-2024 Episodic Nonspecific chest pain (8 sources) Chest pain, unspecified; Translations: [Chest pain] Onset: 07-27-2016 05-05-2024 Episodic Open wounds of extremities (4 sources) Laceration without foreign body, right lower leg, initial encounter; Translations: [LACERATION W/O FB RT LOW LEG INIT] Onset: 08-12-2021 Episodic Other aftercare (1 source) Other skilled nursing (current) drug therapy; Translations: [[facility] CURRENT DRUG THERAPY] Onset: 08-14-2021 Episodic Other [...] Onset: 01-26-2022 Episodic Other lower respiratory disease (7 sources) Dyspnea; Translations: [Dyspnea, unspecified] Onset: 07-27-2016 05-05-2024 [...] UTERUS] Onset: 08-14-2021 Episodic Residual codes; unclassified (7 sources) Edema; Translations: [Edema, unspecified] Onset: 07-27-2016 05-05-2024 Episodic Spondylosis; intervertebral disc disorders; other back problems (20 sources) Spinal stenosis, lumbar region with neurogenic claudication; Translations: [Radiculopathy, lumbar region] Onset: 10-09-2021 Episodic Unclassified (1 source) CONTACT W/AND (SUSP) EXPOS COVID-19; Translations: [CONTACT W/AND (SUSP) EXPOS COVID-19] Onset: 10-28-2021 Unclassified (1 source) Vertebrogenic low back pain; Translations: [Vertebrogenic low back pain] Onset: 11-23-2023 Results Test Name Value Interpretation Reference Range Facility Urology Office/Clinic Noteon 05-19-2024 Urology Office/Clinic Note Urology Office/Clinic Note Chief Complaint Cysto HPI Staff Cysto, pelvic exam History of Present Illness Tests reviewed: I have reviewed the previous health record information and history for this patient from Dr. Adams. I have reviewed and verified the staff [...] HPI. Physical Exam Vitals & Measurements HR: 83(Peripheral) RR: 18 BP: 138/88 HT: 65 in HT: 165 cm WT: 136.2 kg WT: 300.269 lb BMI: 50.03 General Appearance: alert, no distress, well nourished, well developed female. See procedure section for pelvic exam. Procedure Operative Information Anesthesia Type: Local Procedure: Local Cystoscopy Complications: None Surgical risks, benefits, details of the procedure have been explained to the patient. Full informed consent has been obtained. Intraoperative Information Prepped: Patient is brought back to the endoscopy suite. Patient is placed in supine/frog leg position. Patient prepped in the usual fashion with Betadine solution. 2% Xylocaine Jelly is placed per Urethra. After waiting several minutes, the Cystoscope is introduced. The Urethra is: Normal The Bladder: _No tumors or stones. Trabeculated: None (0) The Ureteral orifices: Show efflux of clear urine Specimens Removed: None Removal: Cystoscope is removed. The patient tolerated it well. JOSE ANTONIO is definitively seen. No significant prolapse seen. Postoperative Information Patient is discharged home with antibiotic coverage. Follow up arranged. Assessment/Plan Hx of open total hysterectomy due to fibroid tumor. No other abdominal surgeries. Hx of vaginal delivery. [1] 1. Stress incontinence, female (N39.3: Stress incontinence (female) (male)) Pt had IO cysto and pelvic exam today wo complications. Discussed Bulkamid and its risks and benefits including de stew UUI. If this were to occur, could proceed with botox. Pt elects to proceed with bulkamid. Will schedule Bulkamid. The risks and benefits for cystoscopy have been discussed. The risks include bleeding, infection, and irritation of the bladder and urinary channel, among others. The patient, after being informed of procedural details and after questions have been answered, wishes to proceed. Full informed consent has been obtained. Will order Mac anesthesia. 2. Kidney stones (N20.0: Calculus of kidney) US renal bladder 04/28/23 - No hydro. 4 mm LMP lesion and 9 mm LIP lesion. Most likely renal stones. 3. Former smoker (Z87.891: Personal history of nicotine dependence) 49 yrs, started at 17 yo stopped in 2015. [2] Increased risk for UCC. 4. Aspirin long-term use (Z79.82: [facility]CI (current) use of aspirin) ASA. No BTs. Has pacemaker. Hx of IA but was asx, not sure when it happened. [3] Objective demonstration of stress urinary incontinence today on exam. We discussed with her that she would benefit from cystoscopy, Bulkamid injection. She will follow-up for the procedure. Follow-up With When Contact Information BRYAN BELTRÁN, SASKIA SARGENT Additional Instructions: schedule Bulkamid Patient Education Elvi Martinez, personally scribed for Dr. Rosetta Adams on 05/19/2024 09:01:12. . Portions of this record may have been created with voice recognition artificial intelligence software, specifically [employer], [employer] and or kompany. Substitutions may have occurred due to the inherent limitations of voice recognition and artificial intelligence software. Documentation recorded by the scribe, Elvi Posadas, accurately reflects the services(s) I performed and decisions made by me. Authenticated by Dr. Adams on 05/19/2024 09:39:50. Problem List/Past Medical History Ongoing Aspirin long-term [...] Morbid obesity Multiple pulmonary nodules Pulmonary hypertension Spina (more content not included)... Normal [facility] Comment on above: Result Comment: Elec tronically Signed By: ROSETTA ADAMS MD\.br\Date and Time Signed: 05/19/24 09:40 EST\.br\Electronically Co-Signed By: Elvi Posadas\.br\Date and Time Co-Signed: 05/19/24 09:01 EST Office Visiton 05-09-2024 Follow-up visit [id number] Brian Sadler se 1950 F Date Provider Department Center 05/09/[address] [facility] Family History Problem Relation Age of Onset Other Mother Coronary artery disease Mother Other Mother Other Mother Other Father Hypertension Father Hyperlipidemia Father Other Daughter Family Status - Relation Status Age at Mother Father Daughter Level of Service:23150 [place] OFFICE/OUTPATIENT ESTABLISHED LOW MDM 20 MIN Normal [facility] XR Sinuses [address] [place] [address] XRay Report Signed Patient: VERO SADLER MR#: [id number] : 1950 Acct:[id number] Age/Sex: 74 / F ADM Date: 05/09/24 Loc: RAD Attending Dr: John Mathews M.D. Ordering Physician: John Mathews M.D. Date of Service: 05/09/24 Procedure(s): XR sinus min 3V Accession Number(s): [id number] cc: Debbie Arvizu M.D.; John Mathews M.D. [place] [id number] Patient Name: VERO SADLER MRN: [id number] date: 1950 Sex: F Assigned Patient Location: RAD Current Patient Location: RAD Accession/Order Number: [id number] Exam Date: 05/09/2024 12:47 Report Date: 05/09/2024 12:54 At the request of: JOHN MATHEWS MD Procedure: XR sinus min 3V PARANASAL SINUSES - 3 views COMPARISON: CT head 02/16/2020 CLINICAL DATA: Headaches. Butler, Alondra's and lateral views were obtained. The paranasal sinuses, as visualized are normally pneumatized. There is no significant mucosal thickening or evidence of air-fluid levels. No obvious mastoid opacification is noted. No pathologic intracranial cages are seen. The bony structures are osteopenic. XR/XR sinus min 3V IMPRESSION: NO PLAIN FILM EVIDENCE OF SINUSITIS Impression dictated by: Kelly Lao M.D.05/09/2024 12:54 PM Dictation Location: [place] [address] Electronically authenticated by: [id number] Y Date: 05/09/2024 12:54 Dictated By: Kelly Lao M.D. Signed By: 05/09/24 1257 DD/ 1254 TD/TT: Power Screwdriver Operator: ROBERTO CARLOS Radiology, Radiologi MD sim - 05/09/2024 [place] [address] XRay Report Signed Patient: VERO SADLER MR#: [id number] : 1950 Acct:[id number] Age/Sex: 74 / F ADM Date: 05/09/24 Loc: RAD Attending Dr: John Mathews M.D. Ordering Physician: John Mathews M.D. Date of Service: 05/09/24 Procedure(s): XR sinus min 3V Accession Number(s): [id number] cc: Debbie Arvizu M.D.; John Mathews M.D. [place] [id number] Patient Name: VERO SADLER MRN: [facility]:[id number] date: 1950 Sex: F Assigned Patient Location: RAD Current Patient Location: RAD Accession/Order Number: [id number] Exam Date: 05/09/2024 12:47 Report Date: 05/09/2024 12:54 At the request of: JOHN MATHEWS MD Procedure: XR sinus min 3V PARANASAL SINUSES - 3 views COMPARISON: CT head 02/16/2020 CLINICAL DATA: Headaches. Butler, Alondra's and lateral views were obtained. The paranasal sinuses, as visualized are normally pneumatized. There is no significant mucosal thickening or evidence of air-fluid levels. No obvious mastoid opacification is noted. No pathologic intracranial cages are seen. The bony structures are osteopenic. XR/XR sinus min 3V IMPRESSION: NO PLAIN FILM EVIDENCE OF SINUSITIS Impression dictated by: Kelly Lao M.D.05/09/2024 12:54 PM Dictation Location: [place] [address] Electronically authenticated by: [id number] Y Date: 05/09/2024 12:54 Dictated By: Kelly Lao M.D. Signed By: 05/09/24 1257 DD/ 1254 TD/TT: Power Screwdriver Operator: [facility] reQwip Radiology Study observation (narrative) [facility] reQwip XR Sinuses 3 ViewsOrdered By : Radiologist Radiology on 05-09-2024 videof.me e Work Phone: Ambulatory Visit Summaryon 0 03-31-2024 Ambulatory Visit Summary Ambulatory Visit Summary VERO SADLER :1950 Visit Date:03/31/2024 Ambulatory Visit Instructions Your Diagnosis Stress incontinence, female Kidney stones Former smoker Aspirin long-term use Your Care Team Attending Physician - BRYAN BELTRÁN, ROSETTA Primary Care Physician - Sriram BELTRÁN, Debbie Referring Physician - Debbie Arvizu MD This [...] receive a (more content not included)... Normal [facility] Urology Office/Clinic Noteon 03-31-2024 Urology Office/Clinic Note [...] gross hematuria. 4. 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 No BTs. Has pacemaker. Hx of IA but was asx, not sure when it [...] Education Cystoscopy Injection Treatments for Urinary Incontinence Jericho Peralta I, Elvi Posadas, personally scribed for Dr. Rosetta Adams on 03/31/2024 15:10:07. . Portions of this record may have been created with voice recognition artificial intelligence software, specifically [employer], [employer] and or kompany. Substitutions may have occurred due to the [...] due t (more content not included)... Normal [facility] Comment on above: Result Comment: Elec tronically Signed By: ROSETTA ADAMS MD\.br\Date and Time Signed: 03/31/24 15:13 EST\.br\Electronically Co-Signed By: Elvi Posadas\.br\Date and Time Co-Signed: 03/31/24 15:10 EST\.br\Electronically Co-Signed By: Elvi Posadas\.br\Date and Time Co-Signed: 03/31/24 15:10 EST Office Visiton 01-26-2024 Follow-up visit [id number] Brian Sadler se 1950 F Date Provider Department Center 01/26/2024 271-TATO SALCIDO CARD [facility] Family History Problem Relation Age of Onset Other Mother Coronary artery disease Mother Other Mother Other Mother Other Father Hypertension Father Hyperlipidemia Father Other Daughter Family Status - Relation Status Age at Mother Father Daughter Level of Service:94805 [place] OFFICE/OUTPATIENT ESTABLISHED LOW MDM 20 MIN Normal [facility] MR LUMBAR SPINE WO CONTRASTo n [...] narrowing. Electronically signed: Arnol Cutler MD. Normal [facility] Comment on above: Order Comment: ORDER IN EPIC NURSNOTEon 11-23-2023 SANDIE Coughlin from [employer] prepped pacemaker. Patient verbalizes no issues with device. Monitor hooked up for continuous patient monitoring throughout the scan. Normal [facility] Office Visiton 10-26-2023 Follow-up visit [id number] Brian Sadler se 1950 F Date Provider Department Center 10/26/2023 241-JOSEY KWOK LEEANN Reyes Family History Problem Relation Age of Onset Other Mother Coronary artery disease Mother Other Mother Other Mother Other Father Hypertension Father Hyperlipidemia Father Other Daughter Family Status - Relation Status Age at Mother Father Daughter Level of Service:03022 [place] OFFICE/OUTPATIENT ESTABLISHED LOW MDM 20 MIN Normal [facility] Office Visiton 07-20-2023 Follow-up visit [id number] Brian Sadler se 1950 F Date Provider Department Center 07/20/2023 [id number]-XDKLOYOLLIE FELTON CCC NEPHRO Comprehensiv Family History Problem Relation Age of Onset Other Mother Coronary artery disease Mother Other Mother Other Mother Other Father Hypertension Father Hyperlipidemia Father Other Daughter Family Status - Relation Status Age at Mother Father Daughter Level of Service:50103 [place] OFFICE/OUTPATIENT ESTABLISHED LOW MDM 20 MIN Reason for Visit and Comments: Follow-up [859174] Normal [facility] CREATININE, URINE, RANDOMon 07-09-2023 Creatinine (U) [Mass/Vol] 142.0 mg/dL Normal 26-299 [facility] Comment on above: Performed By: #### L [id number] #### [facility] ([facility]) [address] [place] [address] Performed By: #### L [id number] #### [facility] ([facility]) [address] [place] [address] Follow-Upon 07-09-2023 Follow-Up [id number] Brian Sadler se 1950 F Date Provider Department Center 07/09/2023 JOSE ANGEL LEE MP PA[facility] Family History Problem Relation Age of Onset Other Mother Coronary artery disease Mother Other Mother Other Mother Other Father Hypertension Father Hyperlipidemia Father Other Daughter Family Status - Relation Status Age at Mother Father Daughter Level of Service:38176 [place] OFFICE/OUTPATIENT ESTABLISHED LOW MDM 20 MIN Reason for Visit and Comments: Follow-up [602557] - F/U S/P TFESI S1 - 30% pain relief Normal [facility] MICROALBUMIN, URINE, RANDOMo n 07-09-2023 Albumin DL <= 20 mg/L (U) [Mass/Vol] 2.3 mg/dL Normal [facility] Comment on above: Performed By: #### L [id number] #### [facility] ([facility]) [address] [place] [address] MICROALBUMIN/CREA TININE (MG/G) IN URINE 16.2 mg/g Creat Normal 0.0-30.0 [facility] Comment on above: Performed By: #### L [id number] #### [facility] ([facility]) [address] [place] [address] PROTEIN, URINE, RANDOMon Protein (U) [Mass/Vol] 16.6 mg/dL Normal [facility] Comment on above: Result Comment: Ther e are no established reference values for random urine specimens. Performed By: #### L [id number] ####[facility] ([facility])[address] [place] [address] RENAL FUNCTION PANELon 07-08 Albumin [Mass/Vol] 3.9 g/dL Normal 3.5-5.7 [facility] Comment on above: Performed By: #### L [id number] #### [facility] ([facility]) [address] [place] [address] Anion gap [Moles/Vol] 11 mmol/L Normal 7-20 [facility] Comment on above: Performed By: #### L [id number] #### [facility] ([facility]) [address] [place] [address] CALCIUM (MG/DL) CORRECTED FOR ALBUMIN IN SER/PLAS 9.18 mg/dL Normal [facility] Comment on above: Performed By: #### L [id number] #### [facility] ([facility]) [address] [place] [address] Calcium [Mass/Vol] 9.1 mg/dL Normal 8.6-10.3 [facility] Comment on above: Performed By: #### L [id number] #### [facility] ([facility]) [address] [place] [address] Chloride [Moles/Vol] 109 mmol/L High 98-107 [facility] Comment on above: Performed By: #### L [id number] #### [facility] ([facility]) [address] [place] [address] CO2 [Moles/Vol] 25 mmol/L Normal 21-[address] [facility] Comment on above: Performed By: #### L [id number] #### [facility] ([facility]) [address] [place] [address] Creatinine [Mass/Vol] 2.24 mg/dL High 0.60-1.20 [facility] Comment on above: Performed By: #### L [id number] #### [facility] ([facility]) [address] [place] [address] FASTING? UNKNOWN Normal [facility] Comment on above: Performed By: #### L [id number] #### [facility] ([facility]) [address] [place] [address] GLOMERULAR FILTRATION RATE ML/MIN/1.73 SQ M.PREDICTED 22.7 mL/min/1.73m*2 Low >60.0 [facility] Comment on above: Result Comment: The [facility]'s estimated glomerular filtration rate (eGFR) will [...] L [id number] #### [facility] ([facility]) [address] [place] [address] Glucose [Mass/Vol] 83 mg/dL Normal 70-100 [facility] Comment on above: Performed By: #### L [id number] #### [facility] ([facility]) [address] [place] [address] Magnesium [Mass/Vol] 3.7 mg/dL Normal 2.5-5.0 [facility] Comment on above: Performed By: #### L [id number] #### [facility] ([facility]) [address] [place] [address] Potassium [Moles/Vol] 5.8 mmol/L High 3.5-5.1 [facility] Comment on above: Performed By: #### L [id number] #### [facility] ([facility]) [address] [place] [address] Sodium [Moles/Vol] 139 mmol/L Normal 136-145 [facility] Comment on above: Performed By: #### L [id number] #### [facility] ([facility]) [address] [place] [address] Urea nitrogen [Mass/Vol] 46 mg/dL High 7-25 [facility] Comment on above: Performed By: #### L [id number] #### [facility] ([facility]) [address] [place] [address] UREA NITROGEN/CREATINI NE (MASS RATIO) IN SER/PLAS 20.5 Normal [facility] Comment on above: Performed By: #### L [id number] #### [facility] ([facility]) [address] [place] [address] TSHon 07-09-2023 THYROTROPIN (MIU/L) IN SER/PLAS BY DETECTION LIMIT <= 0.05 MIU/L 0.03 mIU/L Low 0.34-5.60 [facility] Comment on above: Performed By: #### L [id number] ####[facility] ([facility])[address] [place] [address] Orders Onlyon 06-22-2023 Orders Only [id number] Brian Sadler se 1950 F Date Provider Department Center 06/22/2023 EMMANUEL BECK CCC NEPHRO Comprehensiv Family History Problem Relation Age of Onset Other Mother Coronary artery disease Mother Other Mother Other Mother Other Father Hypertension Father Hyperlipidemia Father Other Daughter Family Status - Relation Status Age at Mother Father Daughter Normal [facility] ANESon 05-31-2023 ANES --- Attestation signed [...] kidney disease COPD (chronic obstructive pulmonary disease) ([facility]) Hypertension Myocardial infarction ([facility]) Obstructive sleep apnea 10/02/2022 SOBIA=17.7 events/hour; Pranav SaO2=76%; Ampyfl=473.0 lbs; BMI=52.7 kg/m2, Home Sleep Apnea Testing on 09/25/2022 at [facility] Principle problems: Patient Active Problem List Diagnosis Date Noted 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 Symptomatic bradycardia 01/01/2023 Other secondary pulmonary hypertension ([facility]) 12/15/2022 KATIE on CPAP 12/15/2022 Nonsustained paroxysmal ventricular tachycardia ([facility]) 11/30/2022 A-fib ([facility]) 04/21/2022 Spinal stenosis of lumbar region with neurogenic claudication 01/30/2022 Lower abdominal pain 01/30/2022 Spondylosis of lumbosacral region without myelopathy or radiculopathy 01/30/2022 Essential hypertension 01/25/2020 Chest pain 07/27/2016 Dyspnea 07/27/2016 Edema 07/27/2016 Fatigue 07/27/2016 Lightheadedness 07/27/2016 Obstructive sleep apnea 10/02/2022 VT (ventricular tachycardia) ([facility]) 04/29/2022 Clinical trial exam 04/23/2022 Allergies: Allergies Allergen Reactions Penicillins Other Yeast infection 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 479 g 3 omega 4-igg-qmf-fish oil 350 mg-235 mg- 90 mg-597 mg [...] exam B (more content not included)... Normal [facility] HPon 05-31-2023 History Of Present Illness Vero Sadler is a 73 y.o. female presenting with low back pain Past Medical History She has a past medical history of Abnormal ECG, Adverse effect of anesthesia, Arthritis, Chronic kidney disease, COPD (chronic obstructive pulmonary disease) ([facility]), Hypertension, Myocardial infarction ([facility]), and Obstructive sleep apnea (10/02/2022). [...] Sedation: MAC Attending Physician: Dr. Dario Calderon Program Management Specialist: Rachel Prado, Fellow Procedure Details Informed consent was [...] TISSUE EXAM Small Intestine, Duodenum Collected By: Rachel Prado MD 02/09/2023 1:46 PM Release to [...] included. Esophagogastroduod (more content not included)... Normal [facility] HP --- Attestation signed by Jose Angel [...] kidney disease, COPD (chronic obstructive pulmonary disease) ([facility]), Hypertension, Myocardial infarction ([facility]), and Obstructive sleep apnea (10/02/2022). [...] Sedation: MAC Attending Physician: Dr. Dario Calderon Program Management Specialist: Rachel Prado, Fellow Procedure Details Informed consent was [...] TISSUE EXAM Small Intestine, Duodenum Collected By: Rachel Prado MD 02/09/2023 1:46 PM Release to Patient Immediately Complications: None Estimated blood loss: None Disposition: Home Condition: stable Impression: Poor colon prep. (more content not included)... Normal [facility] Prep for Procedureon 024 Prep for Procedure [id number] Vero Sadler 1950 F Date Provider Department [place] 05/24/2023 POONAM SINGLETON MP [facility] Medical [facility] Family History Problem Relation Age of Onset Other Mother Coronary artery disease Mother Other Mother Other Mother Other Father Hypertension Father Hyperlipidemia Father Other Daughter Family Status - Relation Status Age at Mother Father Daughter Normal [facility] CBC AUTO DIFFon 07-17-2022 BASO # 0.0 103/ul Normal 0.0-0.1 [facility] Comment on above: Performed By: #### C BC #### [facility] [address] [address] [address] Eusebia Moralez Basophils/100 WBC (Bld) 0.6 % Normal 0.2-2.0 [facility] Comment on above: Performed By: #### C BC #### [facility] [address] [place] [address] Dr. Eusebia Moralez EO # 0.2 103/ul Normal 0.0-0.7 [facility] Comment on above: Performed By: #### C BC #### [facility] [address] [place] [address] Dr. Eusebia Moralez Eosinophils/100 WBC (Bld) 2.2 % Normal 0.9-7.0 [facility] Comment on above: Performed By: #### C BC #### [facility] [address] [place] [address] Dr. Eusebia Moralez Erythrocyte distribution width (RBC) [Ratio] 13.0 % Normal 11.0-15.0 [facility] Comment on above: Performed By: #### C BC #### [facility] [address] [place] [address] Dr. Eusebia Moralez Hematocrit (Bld) [Volume fraction] 40.5 % Normal 36.0-48.0 [facility] Comment on above: Performed By: #### C BC #### [facility] [address] [place] [address] Dr. Eusebia Moralez Hemoglobin (Bld) [Mass/Vol] 12.7 g/dL Normal 12.0-16.0 [facility] Comment on above: Performed By: #### C BC #### [facility] [address] [place] [address] Dr. Eusebia Moralez IG # 0.02 10e3/ul Normal 0.00-0.03 [facility] Comment on above: Performed By: #### C BC #### [facility] [address] [place] [address] Dr. Eusebia Moralez IG % 0.3 % Normal 0.0-0.5 [facility] Comment on above: Performed By: #### C BC #### [facility] [address] [place] [address] Dr. Eusebia Moralez LYMPH # 1.4 103/ul Normal 1.2-3.8 [facility] Comment on above: Performed By: #### C BC #### [facility] [address] [place] [address] Dr. Eusebia Moralez Lymphocytes/100 WBC (Bld) 19.9 % Critically low 20.5-60.0 [facility] Comment on above: Performed By: #### C BC #### [facility] [address] [place] [address] Dr. Eusebia Moralez MANUAL DIFF REQ NO Normal [facility] Comment on above: Performed By: #### C BC #### [facility] [address] [place] [address] Dr. Eusebia Moralez MCH (RBC) [Entitic mass] 29.1 pg Normal 26.7-34.0 [facility] Comment on above: Performed By: #### C BC #### [facility] [address] [place] [address] Dr. Eusebia Moralez MCHC (RBC) [Mass/Vol] 31.4 g/dL Normal 29.9-35.2 [facility] Comment on above: Performed By: #### C BC #### [facility] [address] [place] [address] Dr. Eusebia Moralez MCV (RBC) [Entitic vol] 92.9 fL Normal 81.0-99.0 [facility] Comment on above: Performed By: #### C BC #### [facility] [address] [place] [address] Dr. Eusebia Moralez MONO # 0.7 103/ul Normal 0.3-0.8 [facility] Comment on above: Performed By: #### C BC #### [facility] [address] [place] [address] Dr. Eusebia Moralez Monocytes/100 WBC (Bld) 9.4 % Normal 1.7-12.0 [facility] Comment on above: Performed By: #### C BC #### [facility] [address] [place] [address] Dr. Eusebia Moralez NEUT # 4.7 103/ul Normal 1.4-6.5 [facility] Comment on above: Performed By: #### C BC #### [facility] [address] [place] [address] Dr. Eusebia Moralez Neutrophils/100 WBC (Bld) 67.6 % Normal 43.0-75.0 [facility] Comment on above: Performed By: #### C BC #### [facility] [address] [place] [address] Dr. Eusebia Moralez Platelet mean volume (Bld) [Entitic vol] 9.9 fL Normal 9.5-13.5 [facility] Comment on above: Performed By: #### C BC #### [facility] [address] [place] [address] Dr. Eusebia Moralez PLT 218 103/ul Normal 150-450 [facility] Comment on above: Performed By: #### C BC #### [facility] [address] [place] [address] Dr. Eusebia Moralez RBC 4.36 106/ul Normal 4.20-5.40 [facility] Comment on above: Performed By: #### C BC #### [facility] [address] [place] [address] Dr. Eusebia Moralez WBC 6.9 103/ul Normal 4.0-11.0 [facility] Comment on above: Performed By: #### C BC #### [facility] [address] [place] [address] Dr. Eusebia Moralez PROF CHEM 8 (BAS METB)on Anion gap [Moles/Vol] 9.0 mmol/L Normal [facility] Comment on above: Performed By: #### B MP #### [facility] [address] [place] [address] Dr. Eusebia Moralez Calcium [Mass/Vol] 9.2 mg/dL Normal 8.5-10.1 [facility] Comment on above: Performed By: #### B MP #### [facility] [address] [place] [address] Dr. Eusebia Moralez Chloride [Moles/Vol] 103 mmol/L Normal 98-107 [facility] Comment on above: Performed By: #### B MP #### [facility] [address] [address] [address] Eusebia Moralez CO2 [Moles/Vol] 32.9 mmol/L Critically high 21.0-32.0 [facility] Comment on above: Performed By: #### B MP #### [facility] [address] [address] [address] Eusebia Moralez Creatinine [Mass/Vol] 1.74 mg/dL Critically high 0.55-1.02 [facility] Comment on above: Performed By: #### B MP #### [facility] [address] [address] [address] Eusebia Moralez EGFR-AF TRISTANIAN 35 mL/min/1.73m2 Critically low >=60 [facility] Comment on above: Performed By: #### B MP #### [facility] [address] [address] [address] Eusebia Moralez EGFR-NON AF TRISTANIAN 29 mL/min/1.73m2 Critically low >=60 [facility] Comment on above: Performed By: #### B MP #### [facility] [address] [address] [address] Eusebia Moralez Glucose [Mass/Vol] 101 mg/dL Normal 74-106 [facility] Comment on above: Performed By: #### B MP #### [facility] [address] [address] [address] Eusebia Moralez Potassium [Moles/Vol] 3.9 mmol/L Normal 3.5-5.1 [facility] Comment on above: Performed By: #### B MP #### [facility] [address] [address] [address] Eusebia Moralez Sodium [Moles/Vol] 141 mmol/L Normal 136-145 [facility] Comment on above: Performed By: #### B MP #### [facility] [address] [address] [address] Eusebia Moralez Urea nitrogen [Mass/Vol] 34.0 mg/dL Critically high 7.0-18.0 [facility] Comment on above: Performed By: #### B MP #### [facility] [address] [address] [address] Eusebia Moralez Urea nitrogen/Creatini ne [Mass ratio] 19.5 mg/mg Normal [facility] Comment on above: Performed By: #### B MP #### [facility] [address] [address] [address] Eusebia Moralez CBC AUTO DIFFon 07-02-2022 BASO # 0.1 103/ul Normal 0.0-0.1 [facility] Comment on above: Performed By: #### C BC ####[facility] [address] [address]DrRadha Moralez Basophils/100 WBC (Bld) 0.7 % Normal 0.2-2.0 [facility] Comment on above: Performed By: #### C BC ####[facility] [address] [address]Dr. Eusebia Moralez EO # 0.1 103/ul Normal 0.0-0.7 [facility] Comment on above: Performed By: #### C BC ####[facility] [address] [address]Dr. Eusebia Moralez Eosinophils/100 WBC (Bld) 1.8 % Normal 0.9-7.0 [facility] Comment on above: Performed By: #### C BC ####[facility] [address] [address]DrRadha Moralez Erythrocyte distribution width (RBC) [Ratio] 13.1 % Normal 11.0-15.0 [facility] Comment on above: Performed By: #### C BC ####[facility] [address] [address]DrRadha Moralez Hematocrit (Bld) [Volume fraction] 40.2 % Normal 36.0-48.0 [facility] Comment on above: Performed By: #### C BC ####[facility] [address] [address]DrRadha Moralez Hemoglobin (Bld) [Mass/Vol] 12.5 g/dL Normal 12.0-16.0 [facility] Comment on above: Performed By: #### C BC ####[facility] [address] [id number]. Eusebia Moralez IG # 0.01 10e3/ul Normal 0.00-0.03 [facility] Comment on above: Performed By: #### C BC ####[facility] [address] [id number]. Eusebia Moralez IG % 0.1 % Normal 0.0-0.5 [facility] Comment on above: Performed By: #### C BC ####[facility] [address] [address]Dr. Eusebia Moralez LYMPH # 1.5 103/ul Normal 1.2-3.8 [facility] Comment on above: Performed By: #### C BC ####[facility] [address] [address]Dr. Eusebia Moralez Lymphocytes/100 WBC (Bld) 22.6 % Normal 20.5-60.0 [facility] Comment on above: Performed By: #### C BC ####[facility] [address] [address]Dr. Eusebia Moralez MANUAL DIFF REQ NO Normal [facility] Comment on above: Performed By: #### C BC ####[facility] [address] [id number]. Eusebia Moralez MCH (RBC) [Entitic mass] 29.3 pg Normal 26.7-34.0 [facility] Comment on above: Performed By: #### C BC ####[facility] [address] [id number]. Eusebia Moralez MCHC (RBC) [Mass/Vol] 31.1 g/dL Normal 29.9-35.2 [facility] Comment on above: Performed By: #### C BC ####[facility] [address] [id number]. Eusebia Moralez MCV (RBC) [Entitic vol] 94.4 fL Normal 81.0-99.0 [facility] Comment on above: Performed By: #### C BC ####[facility] [address] [id number]. Eusebia Moralez MONO # 0.6 103/ul Normal 0.3-0.8 [facility] Comment on above: Performed By: #### C BC ####[facility] [address] [id number]. Eusebia Moralez Monocytes/100 WBC (Bld) 9.1 % Normal 1.7-12.0 [facility] Comment on above: Performed By: #### C BC ####[facility] [address] [id number]. Eusebia Moralez NEUT # 4.4 103/ul Normal 1.4-6.5 [facility] Comment on above: Performed By: #### C BC ####[facility] [address] [address]Dr. Eusebia Moralez Neutrophils/100 WBC (Bld) 65.7 % Normal 43.0-75.0 [facility] Comment on above: Performed By: #### C BC ####[facility] [address] [id number]. Eusebia Moralez Platelet mean volume (Bld) [Entitic vol] 9.6 fL Normal 9.5-13.5 [facility] Comment on above: Performed By: #### C BC ####[facility] [address] [address]Dr. Eusebia Moralez PLT 204 103/ul Normal 150-450 [facility] Comment on above: Performed By: #### C BC ####[facility] [address] [id number]. Eusebia Moralez RBC 4.26 106/ul Normal 4.20-5.40 [facility] Comment on above: Performed By: #### C BC ####[facility] [address] [id number]. Eusebia Moralez WBC 6.7 103/ul Normal 4.0-11.0 [facility] Comment on above: Performed By: #### C BC ####[facility] [address] [address]Dr. Eusebia Moralez PROF CHEM 8 (BAS METB)on Anion gap [Moles/Vol] 11.2 mmol/L Normal [facility] Comment on above: Performed By: #### B MP ####[facility] [address] [address]Dr. Eusebia Moralez Calcium [Mass/Vol] 9.2 mg/dL Normal 8.5-10.1 [facility] Comment on above: Performed By: #### B MP ####[facility] [address] [address]Dr. Eusebia Moralez Chloride [Moles/Vol] 109 mmol/L Critically high 98-107 [facility] Comment on above: Performed By: #### B MP ####[facility] [address] [place], [place] [address]Dr. Eusebia Moralez CO2 [Moles/Vol] 27.6 mmol/L Normal 21.0-32.0 [facility] Comment on above: Performed By: #### B MP ####[facility] [address] [place], [place] [address]Dr. Eusebia Moralez Creatinine [Mass/Vol] 1.49 mg/dL Critically high 0.55-1.02 [facility] Comment on above: Performed By: #### B MP ####[facility] [address] [place], [place] [address]Dr. Eusebia Moralez EGFR-AF TRISTANIAN 42 mL/min/1.73m2 Critically low >=60 [facility] Comment on above: Performed By: #### B MP ####[facility] [address] [address]Dr. Eusebia Moralez EGFR-NON AF TRISTANIAN 34 mL/min/1.73m2 Critically low >=60 [facility] Comment on above: Performed By: #### B MP ####[facility] [address] [place], [place] [address]Dr. Eusebia Moralez Glucose [Mass/Vol] 89 mg/dL Normal 74-106 [facility] Comment on above: Performed By: #### B MP ####[facility] [address] [id number]. Eusebia Moralez Potassium [Moles/Vol] 4.8 mmol/L Normal 3.5-5.1 [facility] Comment on above: Performed By: #### B MP ####[facility] [address] [id number]. Eusebia Moralez Sodium [Moles/Vol] 143 mmol/L Normal 136-145 [facility] Comment on above: Performed By: #### B MP ####[facility] [address] [phone]. Eusebia Moralez Urea nitrogen [Mass/Vol] 27.0 mg/dL Critically high 7.0-18.0 [facility] Comment on above: Performed By: #### B MP ####[facility] [address] [place] [address]Dr. Eusebia Moralez Urea nitrogen/Creatini ne [Mass ratio] 18.1 mg/mg Normal [facility] Comment on above: Performed By: #### B MP ####[facility] [address] [place] [id number]. Eusebia Moralez CT LUNG CANCER SCREENINGon 1 [...] AMBAR MOON Date: 2022-02-24 08:15 Normal [facility] PROF CHEM 8 (BAS METB)on Anion gap [Moles/Vol] 9.7 mmol/L Normal [facility] Comment on above: Performed By: #### B MP #### [facility] [address] [address] [address] Eusebia Moralez Calcium [Mass/Vol] 8.8 mg/dL Normal 8.5-10.1 [facility] Comment on above: Performed By: #### B MP #### [facility] [address] [address] [address] Eusebia Moralez Chloride [Moles/Vol] 107 mmol/L Normal 98-107 [facility] Comment on above: Performed By: #### B MP #### [facility] [address] [address] [address] Eusebia Moralez CO2 [Moles/Vol] 29.5 mmol/L Normal 21.0-32.0 [facility] Comment on above: Performed By: #### B MP #### [facility] [address] [address] [address] Eusebia Moralez Creatinine [Mass/Vol] 1.83 mg/dL Critically high 0.55-1.02 [facility] Comment on above: Performed By: #### B MP #### [facility] [address] [address] [address] Eusebia Moralez EGFR-AF TRISTANIAN 33 mL/min/1.73m2 Critically low >=60 [facility] Comment on above: Performed By: #### B MP #### [facility] [address] [address] [address] Eusebia Moralez EGFR-NON AF TRISTANIAN 27 mL/min/1.73m2 Critically low >=60 [facility] Comment on above: Performed By: #### B MP #### [facility] [address] [address] [address] Eusebia Moralez Glucose [Mass/Vol] 87 mg/dL Normal 74-106 [facility] Comment on above: Performed By: #### B MP #### [facility] [address] [place], [place] [address] Dr. Eusebia Moralez Potassium [Moles/Vol] 5.2 mmol/L Critically high 3.5-5.1 [facility] Comment on above: Performed By: #### B MP #### [facility] [address] [address] [address] Eusebia Moralez Sodium [Moles/Vol] 141 mmol/L Normal 136-145 [facility] Comment on above: Performed By: #### B MP #### [facility] [address] [address] [address] Eusebia Moralez Urea nitrogen [Mass/Vol] 37.0 mg/dL Critically high 7.0-18.0 [facility] Comment on above: Performed By: #### B MP #### [facility] [address] [address] [address] Eusebia Moralez Urea nitrogen/Creatini ne [Mass ratio] 20.2 mg/mg Normal [facility] Comment on above: Performed By: #### B MP #### [facility] [address] [address] [address] Eusebia Moralez SC STRESS/REST MULTIon 01-23 SC STRESS/REST MULTI Patient: VERO SADLER Exam Date: 01/23/2022 : 1950 Gender:F Ordering : DR DEBBIE ARVIZU . Admission #: [id number] Family : Order #: [id number] CLICK HERE TO VIEW EXAM RADIOLOGY REPORT [...] Harrison MD on 01/26/2022 at 13:45 Normal [facility] ECHOCARDIO M/2D COMPLETEon 1 03-23-2021 ECHOCARDIO M/2D COMPLETE Patient: VERO SADLER Exam Date: 01/21/2022 : 1950 Gender:F Ordering : DR DEBBIE ARVIZU . Admission #: [id number] Family : Order #: [id number] CLICK HERE TO VIEW EXAM ECHOCARDIOGRAM REPORT [...] Salcido M.D. on 01/21/2022 at 09:17 Normal [facility] XR DEXA BONE DENSITYon 01-21 XR [...] by: RAJI HARRISON Date: 2022-01-21 10:03 Normal [facility] BNPon 01-14-2022 Natriuretic peptide B (Bld) [Mass/Vol] 834.0 pg/mL Normal <=900.0 [facility] Comment on above: Performed By: #### T SH, BNP, CMP, T7, LIPID ####[facility] [address] [place] [address]Dr. Eusebia Moralez CBC AUTO DIFFon 01-14-2022 BASO # 0.0 103/ul Normal 0.0-0.1 [facility] Comment on above: Performed By: #### C BC #### [facility] [address] [address] [address] Eusebia Moralez Basophils/100 WBC (Bld) 0.4 % Normal 0.2-2.0 [facility] Comment on above: Performed By: #### C BC #### [facility] [address] [address] [address] Eusebia Moralez EO # 0.1 103/ul Normal 0.0-0.7 [facility] Comment on above: Performed By: #### C BC #### [facility] [address] [place] [address] Dr. Eusebia Moralez Eosinophils/100 WBC (Bld) 1.1 % Normal 0.9-7.0 [facility] Comment on above: Performed By: #### C BC #### [facility] [address] [place] [address] Dr. Eusebia Moralez Erythrocyte distribution width (RBC) [Ratio] 15.0 % Normal 11.0-15.0 [facility] Comment on above: Performed By: #### C BC #### [facility] [address] [place] [address] Dr. Eusebia Moralez Hematocrit (Bld) [Volume fraction] 39.6 % Normal 36.0-48.0 [facility] Comment on above: Performed By: #### C BC #### [facility] [address] [place] [address] Dr. Eusebia Moralez Hemoglobin (Bld) [Mass/Vol] 12.4 g/dL Normal 12.0-16.0 [facility] Comment on above: Performed By: #### C BC #### [facility] [address] [place] [address] Dr. Eusebia Moralez IG # 0.02 10e3/ul Normal 0.00-0.03 [facility] Comment on above: Performed By: #### C BC #### [facility] [address] [place] [address] Dr. Eusebia Moralez IG % 0.3 % Normal 0.0-0.5 [facility] Comment on above: Performed By: #### C BC #### [facility] [address] [place] [address] Dr. Eusebia Moralez LYMPH # 1.3 103/ul Normal 1.2-3.8 [facility] Comment on above: Performed By: #### C BC #### [facility] [address] [place] [address] Dr. Eusebia Moralez Lymphocytes/100 WBC (Bld) 17.9 % Critically low 20.5-60.0 [facility] Comment on above: Performed By: #### C BC #### [facility] [address] [place] [address] Dr. Eusebia Moralez MANUAL DIFF REQ NO Normal [facility] Comment on above: Performed By: #### C BC #### [facility] [address] [place] [address] Dr. Eusebia Moralez MCH (RBC) [Entitic mass] 29.8 pg Normal 26.7-34.0 [facility] Comment on above: Performed By: #### C BC #### [facility] [address] [place] [address] Dr. Eusebia Moralez MCHC (RBC) [Mass/Vol] 31.3 g/dL Normal 29.9-35.2 [facility] Comment on above: Performed By: #### C BC #### [facility] [address] [place] [address] Dr. Eusebia Moralez MCV (RBC) [Entitic vol] 95.2 fL Normal 81.0-99.0 [facility] Comment on above: Performed By: #### C BC #### [facility] [address] [place] [address] Dr. Eusebia Moralez MONO # 0.5 103/ul Normal 0.3-0.8 [facility] Comment on above: Performed By: #### C BC #### [facility] [address] [place] [address] Dr. Eusebia Moralze Monocytes/100 WBC (Bld) 7.0 % Normal 1.7-12.0 [facility] Comment on above: Performed By: #### C BC #### [facility] [address] [place] [address] Dr. Eusebia Moralez NEUT # 5.2 103/ul Normal 1.4-6.5 [facility] Comment on above: Performed By: #### C BC #### [facility] [address] [place] [address] Dr. Eusebia Moralez Neutrophils/100 WBC (Bld) 73.3 % Normal 43.0-75.0 [facility] Comment on above: Performed By: #### C BC #### [facility] [address] [place], [place] [address] Dr. Eusebia Moralez Platelet mean volume (Bld) [Entitic vol] 9.5 fL Normal 9.5-13.5 [facility] Comment on above: Performed By: #### C BC #### [facility] [address] [address] [address] Eusebia Moralez PLT 188 103/ul Normal 150-450 [facility] Comment on above: Performed By: #### C BC #### [facility] [address] [address] [address] Eusebia Moralez RBC 4.16 106/ul Critically low 4.20-5.40 [facility] Comment on above: Performed By: #### C BC #### [facility] [address] [address] [address] Eusebia Moralez WBC 7.0 103/ul Normal 4.0-11.0 [facility] Comment on above: Performed By: #### C BC #### [facility] [address] [address] [address] Eusebia Moralez FREE THYROXINE INDEX T7on FTI 2.45 Normal 1.30-4.50 [facility] Comment on above: Performed By: #### T SH, BNP, CMP, T7, LIPID ####[facility] [address] [place] [id number]. Eusebia Moralez T3U 35.0 % Normal 30.0-39.0 [facility] Comment on above: Performed By: #### T SH, BNP, CMP, T7, LIPID ####[facility] [address] [place], [place] [address]. Eusebia Moralez T4 [Mass/Vol] 7.00 ug/dL Normal 4.80-13.90 [facility] Comment on above: Performed By: #### T SH, BNP, CMP, T7, LIPID ####[facility] [address] [place] [id number]. Eusebia Moralez IRONon 01-14-2022 Iron [Mass/Vol] 58.0 ug/dL Normal 50.0-170.0 [facility] Comment on above: Performed By: #### I MONIE #### [facility] [address] [place], [place] [address] Dr. Eusebia Moralez LIPID PROFILEon 01-14-2022 CHOL-HDL RATIO NORM SEE BELOW Normal [facility] Comment on above: Result Comment: 3.3 - 4.4 LOW RISK 4.4 - 7.1 AVERAGE RISK 7.1 - 11.0 MODERATE RISK >11.0 HIGH RISK Performed By: #### T SH, BNP, CMP, T7, LIPID ####[facility] [address] [place] [address]Dr. Eusebia Moralez Cholesterol [Mass/Vol] 186 mg/dL Normal <=200 [facility] Comment on above: Performed By: #### T SH, BNP, CMP, T7, LIPID ####[facility] [address] [place] [address]DrRadha Moralez Cholesterol in HDL [Mass/Vol] 45 mg/dL Normal 40-60 [facility] Comment on above: Performed By: #### T SH, BNP, CMP, T7, LIPID ####[facility] [address] [place] [address]DrRadha Moralez Cholesterol in LDL [Mass/Vol] 118.4 mg/dL Normal [facility] Comment on above: Performed By: #### T SH, BNP, CMP, T7, LIPID ####[facility] [address] [place] [id number]. Eusebia Moralez Cholesterol.total /Cholesterol in HDL [Mass ratio] 4.1 {ratio} Normal [facility] Comment on above: Performed By: #### T SH, BNP, CMP, T7, LIPID ####[facility] [address] [place] [id number]. Eusebia Moralez HDL NORMAL > or = 60 mg/dl - LO W CARDIOVASCULAR RISK <40 mg/dl - HIGH CARDIOVASCULAR RISK Normal [facility] Comment on above: Performed By: #### T SH, BNP, CMP, T7, LIPID ####[facility] [address] [place] [id number] Moralez LDL CALC NORMAL SEE BELOW Normal [facility] Comment on above: Result Comment: <100 mg/dl OPTIMAL 100 - 129 mg/dl NEAR OR ABOVE OPTIMAL 130 - 159 mg/dl BORDERLINE HIGH 160 - 189 mg/dl HIGH >190 mg/dl VERY HIGH Performed By: #### T SH, BNP, CMP, T7, LIPID ####[facility] [address] [place] [address]DrRadha Moralez Triglyceride [Mass/Vol] 113 mg/dL Normal <=150 [facility] Comment on above: Performed By: #### T SH, BNP, CMP, T7, LIPID ####[facility] [address] [place] [address]DrRadha Moralez VLDL CALC 22.6 mg/dL Normal [facility] Comment on above: Performed By: #### T SH, BNP, CMP, T7, LIPID ####[facility] [address] [place] [address]Dr. Eusebia Moralez PROF 14(COMP METB)on 022 Albumin [Mass/Vol] 3.3 g/dL Critically low 3.4-5.0 [facility] Comment on above: Performed By: #### T SH, BNP, CMP, T7, LIPID #### [facility] [address] [address] [address] Eusebia Moralez Albumin/Globulin [Mass ratio] 0.9 {ratio} Normal [facility] Comment on above: Performed By: #### T SH, BNP, CMP, T7, LIPID #### [facility] [address] [address] [address] Eusebia Moralez ALP [Catalytic activity/Vol] 81 U/L Normal 46-116 [facility] Comment on above: Performed By: #### T SH, BNP, CMP, T7, LIPID #### [facility] [address] [address] [address] Eusebia Moralez ALT [Catalytic activity/Vol] 19 U/L Normal 14-59 [facility] Comment on above: Performed By: #### T SH, BNP, CMP, T7, LIPID #### [facility] [address] [address] [address] Eusebia Moralez Anion gap [Moles/Vol] 12.3 mmol/L Normal [facility] Comment on above: Performed By: #### T SH, BNP, CMP, T7, LIPID #### [facility] [address] [address] [address] Eusebia Moralez AST [Catalytic activity/Vol] 12 U/L Critically low 15-37 [facility] Comment on above: Performed By: #### T SH, BNP, CMP, T7, LIPID #### [facility] [address] [place] [address] Dr. Eusebia Moralez Bilirubin [Mass/Vol] 0.4 mg/dL Normal 0.2-1.0 [facility] Comment on above: Performed By: #### T SH, BNP, CMP, T7, LIPID #### [facility] [address] [place] [address] Dr. Eusebia Moralez Calcium [Mass/Vol] 8.9 mg/dL Normal 8.5-10.1 [facility] Comment on above: Performed By: #### T SH, BNP, CMP, T7, LIPID #### [facility] [address] [place] [address] Dr. Eusebia Moralez Chloride [Moles/Vol] 106 mmol/L Normal 98-107 [facility] Comment on above: Performed By: #### T SH, BNP, CMP, T7, LIPID #### [facility] [address] [place] [address] Dr. Eusebia Moralez CO2 [Moles/Vol] 27.4 mmol/L Normal 21.0-32.0 [facility] Comment on above: Performed By: #### T SH, BNP, CMP, T7, LIPID #### [facility] [address] [place] [address] Dr. Eusebia Moralez Creatinine [Mass/Vol] 1.51 mg/dL Critically high 0.55-1.02 [facility] Comment on above: Performed By: #### T SH, BNP, CMP, T7, LIPID #### [facility] [address] [address] [address] Eusebia Moralez EGFR-AF TRISTANIAN 41 mL/min/1.73m2 Critically low >=60 [facility] Comment on above: Performed By: #### T SH, BNP, CMP, T7, LIPID #### [facility] [address] [place] [address] Dr. Eusebia Moralez EGFR-NON AF TRISTANIAN 34 mL/min/1.73m2 Critically low >=60 [facility] Comment on above: Performed By: #### T SH, BNP, CMP, T7, LIPID #### [facility] [address] [address] [address] Eusebia Moralez Globulin (S) [Mass/Vol] 3.5 g/dL Normal [facility] Comment on above: Performed By: #### T SH, BNP, CMP, T7, LIPID #### [facility] [address] [place] [address] Dr. Eusebia Moralez Glucose [Mass/Vol] 129 mg/dL Critically high 74-106 [facility] Comment on above: Performed By: #### T SH, BNP, CMP, T7, LIPID #### [facility] [address] [place] [address] Dr. Eusebia Moralez Potassium [Moles/Vol] 4.7 mmol/L Normal 3.5-5.1 [facility] Comment on above: Performed By: #### T SH, BNP, CMP, T7, LIPID #### [facility] [address] [place] [address] Dr. Eusebia Moralez Protein [Mass/Vol] 6.8 g/dL Normal 6.4-8.2 [facility] Comment on above: Performed By: #### T SH, BNP, CMP, T7, LIPID #### [facility] [address] [place] [address] Dr. Eusebia Moralez Sodium [Moles/Vol] 141 mmol/L Normal 136-145 [facility] Comment on above: Performed By: #### T SH, BNP, CMP, T7, LIPID #### [facility] [address] [place] [address] Dr. Eusebia Moralez Urea nitrogen [Mass/Vol] 37.0 mg/dL Critically high 7.0-18.0 [facility] Comment on above: Performed By: #### T SH, BNP, CMP, T7, LIPID #### [facility] [address] [place], [place] [address] Dr. Eusebia Moralez Urea nitrogen/Creatini ne [Mass ratio] 24.5 mg/mg Normal [facility] Comment on above: Performed By: #### T SH, BNP, CMP, T7, LIPID #### [facility] [address] [place], [place] [address] Dr. Eusebia Moralez TSHon 01-14-2022 TSH 0.068 uIU/mL Critically low 0.358-3.740 [facility] Comment on above: Performed By: #### T SH, BNP, CMP, T7, LIPID ####[facility] [address] [place] [id number] Moralez Covid-19 PCR (CVDTB)on 10-13 SARS-CoV-2 (COVID-19) RNA DEREK+probe Ql (Unsp spec) Not detected Normal NOT DETECTED [facility] Comment on above: Result Comment: This test is not yet approved or cleared by the [place] FDA. When there are no FDA-approved or cleared tests available, and other criteria are met, FDA can make tests available under an emergency access mechanism called an Emergency Use Authorization (EUA). The EUA for this test is supported by the [place] of Health and Human Service's (HHS's) declaration [...] with SARS-CoV-2. Performed By: #### C VDTBH ####[facility] [address] [place] [id number]. Eusebia Moralez MRI LSPINE WO CONon 10-11-19 [...] by: AMBAR MOON Date: 2021-10-10 07:29 Normal [facility] Pulmonary Progress Noteo n 09-13-2020 [facility] Pulmonary Progress Note [facility] Pt Name: VERO SADLER [address] [place] [address] MR#: [id number] [place] [address] ACCT: [id number] PROGRESS NOTE- Pulmonary : [facility] Date of Service: 09/13/20 Text NAME: VERO SADLER MR#: [id number] DATE OF SERVICE: 09/13/2020 OUTPATIENT PULMONARY PROGRESS [...] disease, severity unknown. We will try to [facility] Pt Name: VERO SADLER [address] [place] [address] MR#: [id number] [place] [address] ACCT: [id number] PROGRESS NOTE- Pulmonary : [facility] [...] postoperative management if needed. TIM TOSCANO MD DI/MODL/[id number] 2 CC: Dr. Rito Guerrero MD eSign Date and Time Tim Toscano MD Signature on File 09/26/20 1046 Normal [facility] GLYCO HEMOon 08-23-2020 HbA1c (Bld) [Mass fraction] 5.3 % Normal [facility] Comment on above: Result Comment: Milagro ivdal Diagnosis HbA1c (%) --------- Diabetic > 6.4 Prediabetes 5.7-6.4 Normal < 5.7 Performed By: #### L 500.92165 #### Test performed at: [address] [address] CBC W/DIFFon 08-22-2020 BASO ABS 0.0 K/uL Normal 0.0-0.2 [facility] Comment on above: Performed By: #### L 200.16298 #### Test performed at: [address] [address] Basophils/100 WBC (Bld) 0.5 % Normal [facility] Comment on above: Performed By: #### L 200.24213 #### Test performed at: [address] [address] EOS ABS 0.1 K/uL Normal 0.0-0.5 [facility] Comment on above: Performed By: #### L 200.56567 #### Test performed at: [address] [address] Eosinophils/100 WBC (Bld) 1.2 % Normal [facility] Comment on above: Performed By: #### L 200.96213 #### Test performed at: [address] [address] Erythrocyte distribution width (RBC) [Ratio] 12.8 % Normal 11.5-14.5 [facility] Comment on above: Performed By: #### L 200.43353 #### Test performed at: [place] [id number] Hematocrit (Bld) [Volume fraction] 40.1 % Normal 36.0-48.0 [facility] Comment on above: Performed By: #### L 200.74279 #### Test performed at: [place] [id number] Hemoglobin (Bld) [Mass/Vol] 12.4 g/dL Normal 12.0-15.0 [facility] Comment on above: Performed By: #### L 200.54126 #### Test performed at: [address] [address] IG % 0.3 % Normal [facility] Comment on above: Performed By: #### L 200.49928 #### Test performed at: [place] [id number] IG ABS 0.02 K/uL Normal 0-0.05 [facility] Comment on above: Performed By: #### L 200.86183 #### Test performed at: [address] [address] Lymphocytes (Bld) [#/Vol] 1.3 10*3/uL Normal 1.2-3.5 [facility] Comment on above: Performed By: #### L 200.85162 #### Test performed at: [address] [address] Lymphocytes/100 WBC (Bld) 16.9 % Normal [facility] Comment on above: Performed By: #### L 200.20608 #### Test performed at: [address] [address] MCH (RBC) [Entitic mass] 29.0 pg Normal 25.4-34.6 [facility] Comment on above: Performed By: #### L 200.89595 #### Test performed at: [address] [address] MCHC (RBC) [Mass/Vol] 30.9 g/dL Low 31.5-36.5 [facility] Comment on above: Performed By: #### L 200.80542 #### Test performed at: [address] [address] MCV (RBC) [Entitic vol] 93.7 fL Normal 79.0-98.0 [facility] Comment on above: Performed By: #### L 200.85789 #### Test performed at: [address] [address] MONO ABS 0.8 K/uL Normal 0.0-1.0 [facility] Comment on above: Performed By: #### L 200.56763 #### Test performed at: [address] [address] Monocytes/100 WBC (Bld) 9.7 % Normal [facility] Comment on above: Performed By: #### L 200.52480 #### Test performed at: [address] [place], [place] [address] NEUTROPHIL ABS 5.5 K/uL Normal 1.4-6.6 [facility] Comment on above: Performed By: #### L 200.09586 #### Test performed at: [address] [address] Neutrophils/100 WBC (Bld) 71.4 % Normal [facility] Comment on above: Performed By: #### L 200.90025 #### Test performed at: [address] [address] NRBC # 0.000 K/uL Normal 0-0.012 [facility] Comment on above: Performed By: #### L 200.48892 #### Test performed at: [address] [address] NRBC % 0.0 /100 WBC Normal 0-0.2 [facility] Comment on above: Performed By: #### L 200.98104 #### Test performed at: [address] [address] Platelet mean volume (Bld) [Entitic vol] 10.1 fL Normal 8.7-12.4 [facility] Comment on above: Performed By: #### L 200.22847 #### Test performed at: [address] [address] Platelets (Bld) [#/Vol] 236 10*3/uL Normal 140-440 [facility] Comment on above: Performed By: #### L 200.11238 #### Test performed at: [address] [address] RBC (Bld) [#/Vol] 4.28 10*6/uL Normal 3.5-5.5 [facility] Comment on above: Performed By: #### L 200.45318 #### Test performed at: [address] [address] WBC (Bld) [#/Vol] 7.7 10*3/uL Normal 3.9-11.[address] [facility] Comment on above: Performed By: #### L 200.43607 #### Test performed at: [address] [address] CHEST PA/AP & LATERAL OR 2 V WSon 08-22-2020 CHEST PA/AP & LATERAL OR 2 VWS STUDY: CHEST PA/AP LATERAL OR 2 VWS; 08/22/2020 2:35 pm INDICATION: COPD. COMPARISON: None. ACCESSION NUMBER(S): [id number] ORDERING CLINICIAN: Ovidio Baez FINDINGS: The lungs are clear without pleural effusion. Borderline cardiomegaly. Otherwise unremarkable mediastinum, eron, and pulmonary vasculature. Thoracic degenerative changes are present. IMPRESSION: No active disease in the chest. Normal [facility] COMP META PANELon 08-22-2020 Albumin [Mass/Vol] 3.4 g/dL Normal 3.4-5.0 [facility] Comment on above: Performed By: #### L 500.61062, L500.94267, L500.01582 #### Test performed at: [address] [address] ALK PHOS TOTAL 88 U/L Normal 45-117 [facility] Comment on above: Performed By: #### L 500.17456, L500.70158, L500.95460 #### Test performed at: [address] [address] ALT [Catalytic activity/Vol] 17 U/L Normal 13-61 [facility] Comment on above: Performed By: #### L 500.04169, L500.45106, L500.66764 #### Test performed at: [address] [address] AST [Catalytic activity/Vol] 12 U/L Low 15-37 [facility] Comment on above: Performed By: #### L 500.97941, L500.13404, L500.76295 #### Test performed at: [address] [address] BILI TOTAL 0.5 mg/dL Normal 0.2-1.0 [facility] Comment on above: Performed By: #### L 500.63893, L500.37131, L500.09104 #### Test performed at: [address] [address] Calcium [Mass/Vol] 9.0 mg/dL Normal 8.5-10.1 [facility] Comment on above: Performed By: #### L 500.96033, L500.00591, L500.11907 #### Test performed at: [address] [address] Chloride [Moles/Vol] 107 mmol/L Normal 98-107 [facility] Comment on above: Performed By: #### L 500.72329, L500.17478, L500.94609 #### Test performed at: [address] [address] CO2 [Moles/Vol] 29 mmol/L Normal 21-32 [facility] Comment on above: Performed By: #### L 500.32582, L500.83836, L500.08741 #### Test performed at: [address] [address] Creatinine [Mass/Vol] 1.280 mg/dL High 0.550-1.020 [facility] Comment on above: Performed By: #### L 500.51737, L500.22508, L500.48477 #### Test performed at: [address] [address] Glucose [Mass/Vol] 90 mg/dL Normal 70-99 [facility] Comment on above: Result Comment: Fast ing GLUCOSE reference range has been updated per (ADA) [place] [employer]'s recommendation. 06/07/2018 Performed By: #### L 500.16693, L500.81019, L500.19506 #### Test performed at: [address] [address] Potassium [Moles/Vol] 4.4 mmol/L Normal 3.5-5.1 [facility] Comment on above: Performed By: #### L 500.32322, L500.04042, L500.92282 #### Test performed at: [address] [address] Protein [Mass/Vol] 6.8 g/dL Normal 6.4-8.2 [facility] Comment on above: Performed By: #### L 500.62805, L500.11843, L500.68054 #### Test performed at: [address] [address] Sodium [Moles/Vol] 142 mmol/L Normal 136-145 [facility] Comment on above: Performed By: #### L 500.11784, L500.84563, L500.36269 #### Test performed at: [address] [address] Urea nitrogen [Mass/Vol] 21 mg/dL High 7-18 [facility] Comment on above: Performed By: #### L 500.17396, L500.49766, L500.87653 #### Test performed at: [address] [address] GFR ESTIMATEon 08-22-2020 IF AMER 50 Low > 60 [facility] Comment on above: Result Comment: eGFR (Estimated GFR) Units of measure:mL/min/1.73 meters sq. *CALCULATION REVISED 01/01/2015;IDMS-traceable MDRD equation eGFR is derived from the reexpressed MDRD Study equation using the following parameters: serum creatinine, age, gender and race. An eGFR<60 mL/min/1.73m2 for >3 months is consistent with chronic kidney disease. Refer to KDOQI guidelines for clinical interpretation. Performed By: #### L 500.67773, L500.56014, L500.19915 #### Test performed at: [place] [address] IF non-AFR AMER 41 Low > 60 [facility] Comment on above: Performed By: #### L 500.13868, L500.74650, L500.52392 #### Test performed at: [place] [address] TSH ULTRA SENSon 08-22-2020 TSH ULTRA SENS < 0.005 Low 0.358-3.74 [facility] Comment on above: Performed By: #### L 500.74079, L500.54980, L500.41699 #### Test performed at: [place] [address] LUMB SP COMP W FLEX/EXT 6 VW Son 07-23-2020 LUMB SP COMP W FLEX/EXT 6 VWS STUDY: LUMB SP COMP W FLEX/EXT 6 VWS ; 07/23/2020 9:01 am INDICATION: PAIN. COMPARISON: None. ACCESSION NUMBER(S): [id number] ORDERING CLINICIAN: Sacha Guerrero FINDINGS: No fracture [...] Date Time Vital Sign Value Performing Clinician Facility 06-20-2024 09:36-0400 Body height 162.6 cm John Mathews MD Work Phone: [facility] 06-20-2024 09:36-0400 Body mass index (BMI) [Ratio] 50.46 kg/m2 John Mathews MD Work Phone: [facility] 06-20-2024 09:36-0400 Body weight 133.36 kg John Mathews MD Work Phone: [facility] 06-20-2024 09:36-0400 Diastolic blood pressure 78 mm[Hg] John Mathews MD Work Phone: [facility] 06-20-2024 09:36-0400 Systolic blood pressure 175 mm[Hg] John Mathews MD Work Phone: [facility] 05-09-2024 08:38-0500 Body height 162.6 cm John Mathews MD Work Phone: [facility] 05-09-2024 08:38-0500 Body mass index (BMI) [Ratio] 50.81 kg/m2 John Mathews MD Work Phone: [facility] 05-09-2024 08:38-0500 Body weight 134.26 kg John Mathews MD Work Phone: [facility] 05-09-2024 08:38-0500 Diastolic blood pressure 90 mm[Hg] John Mathews MD Work Phone: [facility] 05-09-2024 08:38-0500 Heart rate 87 /min John Mathews MD Work Phone: [facility] 05-09-2024 08:38-0500 Systolic blood pressure 170 mm[Hg] John Mathews MD Work Phone: [facility] 03-31-2024 14:50-0500 Blood Pressure Location ROSETTA ADAMS [facility] 03-31-2024 14:50-0500 Diastolic blood pressure 82 mm[Hg] ROSETTA ADAMS [facility] 03-31-2024 14:50-0500 Heart rate 86 /min ROSETTA NKANSAH-AMANKRA [facility] 03-31-2024 14:50-0500 Respiratory rate 16 /min ROSETTA NKANSAH-AMANKRA [facility] 03-31-2024 14:50-0500 Systolic blood pressure 152 mm[Hg] ROSETTA NKANSAH-AMANKRA [facility] 01-06-2024 13:02-0400 Body height 162.56 cm [facility] 01-06-2024 13:02-0400 Body mass index (BMI) [Ratio] 50.5 kg/m2 [facility] 01-06-2024 13:02-0400 Body temperature 96.3 [degF] [facility] 01-06-2024 13:02-0400 Body weight 133.46 kg [facility] 01-06-2024 13:02-0400 Diastolic blood pressure 90 mm[Hg] [facility] 01-06-2024 13:02-0400 Heart rate 81 /min [facility] 01-06-2024 13:02-0400 Respiratory rate 18 /min [facility] 01-06-2024 13:02-0400 SaO2% (BldA) [Mass fraction] 98 % [facility] 01-06-2024 13:02-0400 Systolic blood pressure 179 mm[Hg] [facility] Encounters Encounter Date Encounter Type Care Provider Facility Start: 06-20-2024 End: 06-20-2024 Ankit Mathews MD Work Phone: [facility] Start: 06-20-2024 End: 06-20-2024 Ankit Mathews MD Work Phone: [facility] Start: 06-20-2024 End: 06-20-2024 Office outpatient visit 25 minutes John Mathews MD Work Phone: [facility] Comment on above: OME (otitis media wi th effusion), right (Primary Dx); ETD (Eustachian tube dysfunction), right; 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 Start: 05-19-2024 End: 05-19-2024 ambulatory ROSETTA ADAMS Facility: [place] Start: 05-09-2024 End: 05-09-2024 Bamboo flowsheet John Mathews MD Work Phone: [facility] Start: 05-09-2024 End: 05-09-2024 Bamboo flowsheet John Mathews MD Work Phone: [facility] Start: 05-09-2024 End: 05-09-2024 Clinisync Result Encounter John Mathews MD Work Phone: [facility] Unsolicited Start: 05-09-2024 End: 05-09-2024 ambulatory [facility] Start: 05-09-2024 End: 05-09-2024 Office outpatient new 45 minutes John Mathews MD Work Phone: [facility] Comment on above: OME (otitis media wi th effusion), right (Primary Dx); Nonintractable headache, unspecified chronicity pattern, unspecified headache type Start: 05-09-2024 End: 05-09-2024 ambulatory JOHN MATHEWS Not Available Start: 05-05-2024 End: 05-05-2024 ambulatory ROSETTA ADAMS Facility:[facility] Start: 05-05-2024 End: 05-05-2024 Patient encounter procedure ROSETTA ADAMS [facility] Start: 05-01-2024 End: 05-01-2024 ambulatory Cande Garcia MD Facility:[facility] Start: 03-31-2024 End: 03-31-2024 ambulatory ROSETTA ZAMUDIOBRIANAANDREEAJEAN-PIERRE Facility:[facility] Start: 03-31-2024 End: 03-31-2024 Patient encounter procedure ROSETTADOMINIQUE ADAMS [facility] [place] Start: 02-22-2024 ambulatory ROSETTA ADAMS Facility:[facility] Start: 02-14-2024 End: 02-14-2024 ambulatory Cande Garcia MD Facility:[facility] Start: 02-08-2024 End: 02-08-2024 ambulatory [facility] Start: 01-26-2024 End: 01-26-2024 [facility] Start: 01-06-2024 End: 01-06-2024 ambulatory [facility] Work Phone: Start: 01-06-2024 End: 01-06-2024 Patient encounter procedure [facility] Javier Work Phone: Start: 11-23-2023 End: 11-23-2023 Encounter for other specified special examinations JOSE ANGEL MEEHAN [facility] Start: 11-23-2023 End: 11-23-2023 ambulatory JOSE ANGEL MEEHAN [facility] Start: 10-26-2023 End: 10-26-2023 ambulatory JOSEY [facility] Start: 07-20-2023 End: 07-20-2023 [facility] Start: 07-09-2023 ambulatory JOSE ANGEL MEEHAN [facility] Start: 06-30-2023 End: 06-30-2023 ambulatory [facility] Start: 05-31-2023 End: 05-31-2023 ambulatory JOSE ANGEL MEEHAN [facility] Start: 07-17-2022 End: 07-18-2022 ambulatory JOSEY [...] Start: 09-29-2016 End: 09-30-2016 Ambulatory DEFAULT PHYSICIAN Facility:[facility] Procedures Date Procedure Procedure Detail Performing Clinician Start: 05-09-2024 Radex sinuses parana roland compl minimum 3 views John Mathews MD Work Phone: Start: 02-09-2023 End: 02-09-2023 Colonoscopy ROSETTA MATUTE Start: 07-06-2018 Colonoscopy ROSETTA FELICIANO Cataract extraction and insertion of intraocular lens ROSETTA ADAMS H/O: hysterectomy ROSETTA FELICIANO Hysterectomy ROSETTA CABRERA Procedure ROSETTA CABRERA Total hysterectomy ROSETTA N LATESHA Plan of Treatment Date Care Activity Detail Author Start: 02-09-2033 Screening for malign ant neoplasm of colon [facility] Start: 11-13-2024 Influenza vaccination Influenz a Vaccine (Season Ended) [facility] Start: 06-20-2024 End: 06-20-2024 Patient encounter procedure [facility] Comment on above: Arrived Start: 05-09-2024 End: 05-09-2024 Patient encounter procedure 05/09/2024 8:40 AM EST Office Visit [facility] [address] [facility] [address] [place] [address] John Mathews MD [address] [facility] [address] [place] [address] Arrived [facility] Comment on above: Arrived Start: 11-14-2023 Influenza vaccination Influenza Vacc ine (#1) [facility] Start: 02-20-2016 Pneumococcal Vaccine : 65+ Years (1 of 1 - PCV) Pneumococcal Vaccine: 65+ Years (1 of 1 - PCV) [facility] Start: 1991 Screening for malign ant neoplasm of breast Mammogram [facility] Start: 1950 Screening for malign ant neoplasm of colon [facility] Renal function 2000 panel - Serum or Plasma [facility] Immunizations Immunization Date Immunization Notes Care Provider Fa cility 01-07-2021 SARS-CoV-2 (COVID-19 ) mRNA BNT-162b2 vax ROSETTA ADAMS [facility] 12-17-2020 SARS-CoV-2 (COVID-19 ) mRNA BNT-162b2 kit ADAMS [facility] Payers Date Payer Category Payer Medicare [id number] 2018 Private Health Insurance 2013 Medicare 1959 Medicare [id number] 1959 Unknown [id number] 1950 Unknown [id number] 2.16.84 0.1.805374.3.579.2.593 1951 Unknown [id number] 2.16.84 0.1.044248.3.579.2.593 1951 Unknown [id number] 2.16.84 0.1.821115.3.579.2.593 1951 Unknown [id number] 2.16.84 0.1.422582.3.579.2.593 1951 Unknown [id number] 2.16.84 0.1.539053.3.579.2.593 1951 Unknown [id number] 2.16.84 0.1.943729.3.579.2.593 1951 Unknown [id number] 2.16.84 0.1.947930.3.579.2.593 1951 Unknown [id number] 2.16.84 0.1.231369.3.579.2.593 1951 Unknown [id number] 2.16.84 0.1.676577.3.579.2.593 1951 Unknown [id number] 2.16.84 0.1.557287.3.579.2.593 1951 Unknown [id number] 2.16.84 0.1.546406.3.579.2.593 1951 Unknown [id number] 2.16.84 0.1.855905.3.579.2.593 1951 Unknown [id number] 2.16.84 0.1.189234.3.579.2.593 1951 Unknown [id number] 2.16.84 0.1.665116.3.579.2.593 1951 Unknown [id number] 2.16. 840.1.839041.3.579.2.196 1951 Unknown [id number] 2.16. 840.1.045314.3.579.2.196 1951 Unknown [id number] 2.16.84 0.1.312139.3.579.2.1259 1951 Unknown [id number] 2.16.8 40.1.256204.3.579.2.727 1951 Unknown [id number] 2.16.8 40.1.814426.3.579.2.727 1951 Unknown [id number] 2.16.8 40.1.365623.3.579.2.727 Unknown Unknown [id number] Social History Date Type Detail Facility Start: 01-06-2024 End: 03-31-2024 Tobacco smoking status NHIS Ex-smoker (finding) [facility] Start: 1950 Sex Assigned At Female F [facility] Tobacco smoking status Never [facility] Start: 05-09-2024 End: 06-20-2024 [address] Female [facility] Start: 1950 Sex assigned at Not on file [facility] Start: 05-09-2024 [facility] Start: 05-09-2024 Tobacco use and exposure Smokeless tobacco non-user [facility] Start: 05-09-2024 End: 06-20-2024 Alcoholic beverage intake Ex-drinker (finding) [facility] Start: 05-09-2024 End: 06-20-2024 History of Social function [facility] Functional Status Date Assessment Result Facility 03-31-2024 Functional Status N/A [facility] Clinical Notes 05-31-2023 to 06-20-2024 John Mathews MD - 06/20/2024 9:40 AM Leonid Mathews MD - 05/09/2024 8:40 AM EST Note Date & Type Note Facility 06-20-2024 History of Present illness Narrative Subjective Patient ID: Vero Sadler is a 74 y.o. female who presents for Ear Problem (6 week check ears/ sinus XR [facility] 05/09/24) Still can't hear from RT ear Review of Systems All other systems reviewed and are negative. No family history on file. Active Ambulatory Problems Diagnosis Date Noted A-fib ([facility]) 04/21/2022 Chest pain 07/27/2016 CKD (chronic kidney disease) stage 4, GFR 15-29 ml/min ([facility]/HCC) 01/26/2024 Clinical trial exam 04/23/2022 Dyspnea 07/27/2016 Edema 07/27/2016 Essential hypertension (CMS/HCC) 01/25/2020 Fatigue 07/27/2016 Hyperkalemia 01/26/2024 Lightheadedness 07/27/2016 Lower abdominal pain 01/30/2022 Nonsustained paroxysmal ventricular tachycardia (CMS/HCC) 11/30/2022 Obstructive sleep apnea syndrome 10/02/2022 Other secondary pulmonary hypertension 12/15/2022 Secondary hyperparathyroidism (CMS/HCC) 01/26/2024 Spinal stenosis of lumbar region with neurogenic claudication 01/30/2022 Spondylosis of lumbosacral region without myelopathy or radiculopathy 01/30/2022 Symptomatic bradycardia 01/01/2023 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 VT (ventricular tachycardia) (CMS/HCC) 04/29/2022 Aspirin long-term use 05/09/2024 CAD (coronary artery disease) (CMS/HCC) 05/09/2024 Chronic obstructive pulmonary disease (CMS/HCC) 05/09/2024 Former smoker 05/09/2024 History of colon polyps 05/09/2024 History of tobacco abuse 05/09/2024 Hypercholesterolemia ([facility]/HCC) 05/09/2024 Hypothyroidism ([facility]/HCC) 05/09/2024 Kidney stones 05/09/2024 Morbid obesity ([facility]/HCC) 05/09/2024 Multiple pulmonary nodules 05/09/2024 Stage 3a chronic kidney disease (HCC) ([facility]) 01/31/2024 Status post lumbar spine operation 05/09/2024 Stress incontinence, female 05/09/2024 Resolved Ambulatory Problems Diagnosis Date Noted No Resolved Ambulatory Problems No Additional Past Medical History Past Surgical History: Procedure Laterality Date CATARACT EXTRACTION W/ INTRAOCULAR LENS IMPLANT HYSTERECTOMY IR ABLATION BONE Left 04/01/2022 IR ABLATION BONE 04/01/2022 IR LUMBAR SACRAL TRANSFORAMINAL EPIDURAL FIRST LEVEL BILATERAL Bilateral 05/31/2023 IR LUMBAR SACRAL TRANSFORAMINAL EPIDURAL FIRST LEVEL BILATERAL 05/31/2023 IR LUMBAR SACRAL TRANSFORAMINAL EPIDURAL FIRST LEVEL RIGHT Right 10/07/2022 IR LUMBAR SACRAL TRANSFORAMINAL EPIDURAL FIRST LEVEL RIGHT 10/07/2022 Allergies Allergen Reactions Penicillins Other Reaction(s): Other Yeast infection Current Outpatient Medications on File Prior to Visit Medication Sig Dispense Refill albuterol HFA 90 mcg/act inhaler Inhale 2 puffs every 4 (four) hours if needed aspirin 81 MG EC tablet Take 81 mg by mouth in the morning. Azelastine HCl 137 MCG/SPRAY solution every 12 (twelve) hours Calcium Carb-Cholecalciferol 600-10 MG-MCG tablet Take 2 tablets by mouth in the morning. levothyroxine (Synthroid, Levoxyl) 100 MCG tablet Take 100 mcg by mouth in the morning. Take before meals. liothyronine (Cytomel) 25 MCG tablet Take 1.5 tablets by mouth in the morning. lisinopril 10 MG tablet Take 10 mg by mouth in the morning. lovastatin (Mevacor) 20 MG tablet Take 20 mg by mouth in the morning. traMADol (Ultram) 50 MG tablet TAKE 1 TABLET BY MOUTH TWICE A DAY NEEDED FOR 30 DAYS [DISCONTINUED] fluticasone (Flonase) 50 MCG/ACT nasal spray 2 sprays on the right twice daily. Shake gently. Before first use, prime pump. After use, clean tip and replace cap. 48 g 3 No current facility-administered medications on file prior to visit. Objective Last Recorded Vitals Vitals: 06/20/24 0936 BP: 175/78 ENT Physical Exam Ear Ear Canals: left ear canal normal; Tympanic Membranes: left tympanic membrane normal; Ear comments: RT serous effusion. 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 Proceed with RT t-tube and nasal endoscopy. Hold ASA 10d preop documented in this encounter [facility] 05-19-2024 Note Patient Education Obstetrics and Gynecology Kegel [...] provider. Document Revised: 07/10/2021 Document Reviewed: 07/10/2021 Oxynade Patient Education ? [address] [employer] [facility] 05-09-2024 Note [place] Cardiology Consul t Note Reason for visit: follow up after PPM. 05/09/24 Patient was recently seen by Dr. BARONE after she was evaluated in the emergency room for chest pain. It was deemed that this was noncardiac and likely GI in etiology. Her blood pressure readings today is elevated. She is currently on lisinopril 10 mg once daily, hydralazine 100 mg 3 times a day and Coreg 12.5 twice a day Device check performed in February 2024 shows Biotronik dual-chamber device with no episodes of high atrial rate suggestive of A-fib or SVT. Patient here for 3 mo follow up NSVT, epigastric pain, and bradycardia. Says she's having chest pressure that wakes her up during the night. Says her breathing has been good. Had device check last week prior to pain management procedure. 10/26/23 Patient here for 6 mo follow [...] 600/290 Prior HPI: Vero Sadler is a 74 y.o. year old with past medical history [...] effect of anesthesia heartrate drops after colonoscopy Arrhythmia Arthritis Chronic kidney disease COPD (chronic obstructive pulmonary disease) (CMS/HCC) Hypertension Myocardial infarction ([facility]) Obstructive sleep apnea 10/02/2022 SOBIA=17.7 events/hour; Pranav SaO2=76%; Vclods=761.0 lbs; BMI=52.7 kg/m2, Home Sleep Apnea Testing on 09/25/2022 at [facility] PSH: Past Surgical History: Procedure Laterality Date CARDIAC CATHETERIZATION COLONOSCOPY 02/09/2023 EYE SURGERY CATARACT FOOT SURGERY Right tendon repair HYSTERECTOMY INSERT / REPLACE / REMOVE PACEMAKER 01/12/2023 OTHER SURGICAL HISTORY Bilateral 05/31/2023 S1 TFESI - 20% pain relief SH: Social Determinants of Health Tobacco Use: Low Risk (05/09/2024) Received from [facility] Patient History Smoking Tobacco Use: Never Smokeless Tobacco Use: Never Passive Exposure: Not on file Alcohol Use: Not on file Financial Resource Strain: Low Risk (01/05/2023) Overall Financial Resource Strain (CARDIA) Difficulty of Paying Living Expenses: Not hard at all Food Insecurity: No Food Insecurity (01/05/2023) Hunger Vital Sign Worried About Running Out of Food in the Last Year: Never true Ran Out of Food in the Last Year: Not on file Transportation Needs: No Transportation Needs (01/05/2023) Tr (more content not included)... [facility] 05-09-2024 History of Present illness Narrative Subjective Patient ID: Vero Sadler is a 74 y.o. female who presents for Ear Problem (Audio 05/04/24 mackenzie ) Pt had the flu 4 weeks ago and now unable to hear on the RT. Also has RT BECERRA. No tx yet per pt. 05/04 audio shows moderate to severe right mixed HL with a flat tymp. Review of Systems All other systems reviewed and are negative. No family history on file. Active Ambulatory Problems Diagnosis Date Noted A-fib (CMS/HCC) 04/21/2022 Chest pain 07/27/2016 CKD (chronic kidney disease) stage 4, GFR 15-29 ml/min ([facility]/HCC) 01/26/2024 Clinical trial exam 04/23/2022 Dyspnea 07/27/2016 Edema 07/27/2016 Essential hypertension (CMS/[facility]) 01/25/2020 Fatigue 07/27/2016 Hyperkalemia 01/26/2024 Lightheadedness 07/27/2016 Lower abdominal pain 01/30/2022 Nonsustained paroxysmal ventricular tachycardia (CMS/HCC) 11/30/2022 Obstructive sleep apnea syndrome 10/02/2022 Other secondary pulmonary hypertension (CMS/HCC) 12/15/2022 Secondary hyperparathyroidism ([facility]) 01/26/2024 Spinal stenosis of lumbar region with neurogenic claudication 01/30/2022 Spondylosis of lumbosacral region without myelopathy or radiculopathy 01/30/2022 Symptomatic bradycardia 01/01/2023 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 VT (ventricular tachycardia) (CMS/[facility]) 04/29/2022 Aspirin long-term use 05/09/2024 CAD (coronary artery disease) (CMS/[facility]) 05/09/2024 Chronic obstructive pulmonary disease ([facility]) 05/09/2024 Former smoker 05/09/2024 History of colon polyps 05/09/2024 History of tobacco abuse 05/09/2024 Hypercholesterolemia (CMS/[facility]) 05/09/2024 Hypothyroidism ([facility]) 05/09/2024 Kidney stones 05/09/2024 Morbid obesity ([facility]) 05/09/2024 Multiple pulmonary nodules 05/09/2024 Stage 3a chronic kidney disease (HCC) ([facility]) 01/31/2024 Status post lumbar spine operation 05/09/2024 Stress incontinence, female 05/09/2024 Resolved Ambulatory Problems Diagnosis Date Noted No Resolved Ambulatory Problems No Additional Past Medical History Past Surgical History: Procedure Laterality Date CATARACT EXTRACTION W/ INTRAOCULAR LENS IMPLANT HYSTERECTOMY IR ABLATION BONE Left 04/01/2022 IR ABLATION BONE 04/01/2022 IR LUMBAR SACRAL TRANSFORAMINAL EPIDURAL FIRST LEVEL BILATERAL Bilateral 05/31/2023 IR LUMBAR SACRAL TRANSFORAMINAL EPIDURAL FIRST LEVEL BILATERAL 05/31/2023 IR LUMBAR SACRAL TRANSFORAMINAL EPIDURAL FIRST LEVEL RIGHT Right 10/07/2022 IR LUMBAR SACRAL TRANSFORAMINAL EPIDURAL FIRST LEVEL RIGHT 10/07/2022 Allergies Allergen Reactions Penicillins Other Reaction(s): Other Yeast infection Current Outpatient Medications on File Prior to Visit Medication Sig Dispense Refill albuterol HFA 90 mcg/act inhaler Inhale 2 puffs every 4 (four) hours if needed aspirin 81 MG EC tablet Take 81 mg by mouth in the morning. Calcium Carb-Cholecalciferol 600-10 MG-MCG tablet Take 2 tablets by mouth in the morning. levothyroxine (Synthroid, Levoxyl) 100 MCG tablet Take 100 mcg by mouth in the morning. Take before meals. liothyronine (Cytomel) 25 MCG tablet Take 1.5 tablets by mouth in the morning. lisinopril 10 MG tablet Take 10 mg by mouth in the morning. lovastatin (Mevacor) 20 MG tablet Take 20 mg by mouth in the morning. traMADol (Ultram) 50 MG tablet TAKE 1 TABLET BY MOUTH TWICE A DAY NEEDED FOR 30 DAYS [DISCONTINUED] hydrALAZINE (Apresoline) 100 MG tablet Take 100 mg by mouth in the morning and 100 mg at noon and 100 mg in the evening. No current facility-administered medications on file prior to visit. Objective Last Recorded Vitals Vitals: 05/09/24 0838 BP: 170/90 Pulse: 87 ENT Physical Exam Constitutional Appearance: patient appears well-developed, well-nourished and well-groomed, Head and Face Appearance: head appears normal and face appears atraumatic; Ear Ear Canals: right ear canal normal; left ear canal normal; Tympanic Membranes: left tympanic membrane normal; Ear comments: RT serous effusion Nose External Nose: nares patent bilaterally; external nose normal; Internal Nose: septum normal; Oral Cavity/Oropharynx Tongue: normal; Oral mucosa: normal; Hard palate: normal; Soft palate: normal; Tonsils: normal; Neck Neck: neck normal; neck palpation normal; Thyroid: thyroid normal; Respiratory Inspection: breathing unlabored; normal breathing rate; Auscultation: breath sounds are clear; Cardiovascular Inspection: extremities are warm and well perfused; no peripheral edema present; Auscultation: regular rate and rhythm; Assessment/Plan Diagnoses and all orders for this visit: OME (otitis media with effusion), right Nonintractable headache, unspecified chronicity pattern, unspecified headache type Start BID flonase on the right. T-Tube if persists in 6 weeks. Check sinus plain films to eval sinuses as possible cause of BECERRA. documented in this encounter [facility] 04-12-[facility] Hospital Discharge instructions Follow Up Care 04/12/2024 08:02:27 With:ROSETTA ADAMS MD, URL Address: When: Unknown [facility] 03-31-2024 Hospital Discharge instructions Patient Education 03/31/2024 [...] including vitamins, herbs, eye drops, creams, and hemn-guc-swdwpjb medicines. Any problems you or family members [...] provider tells you to take them. Taking tmbl-kta-sgwhgot medicines, vitamins, herbs, and supplements. Tests You [...] Follow these instructions at home: Medicines Take dqhk-bwt-qyumzmm and prescription medicines only as told by [...] provider. Document Revised: 11/12/2021 Document Reviewed: 10/11/2020 [employer] Patient Education 2023 [employer] 03/31/2024 15:09:42 Injection Treatments for Urinary Incontinence [...] including vitamins, herbs, eye drops, creams, and baeg-gem-cpztygw medicines. Any problems you or family members [...] provider tells you to take them. Taking qens-gfh-lullrxs medicines, vitamins, herbs, and supplements. General instructions [...] provider. Document Revised: 10/04/2020 Document Reviewed: 10/04/2020 [employer] Patient Education 2023 [employer]. 03/31/2024 15:09:34 Kegel Exercises Kegel Exercises Kegel [...] provider. Document Revised: 07/10/2021 Document Reviewed: 07/10/2021 [employer] Patient Education 2023 [employer]. Follow Up Care 02/22/2024 14:36:40 With:ROSETTA ADAMS MD, URL Address: When: Unknown [facility] 03-31-2024 Note Patient Education Obstetrics and Gynecology [...] provider. Document Revised: 07/10/2021 Document Reviewed: 07/10/2021 [employer] Patient Education ? 2023 [employer]. Urology Cystoscopy Cystoscopy is a procedure that [...] including vitamins, herbs, eye drops, creams, and gekz-wgu-wtrrtvn medicines. ??? Any problems you or family [...] tells you to take them. ??? Taking yczc-euv-wsazhoc medicines, vitamins, herbs, and supplements. Tests You may have an exam or testing, such as: ??? X-rays of the bladder, urethra, or kidneys. ??? CT scan of the abdomen or pelvis. ??? Urine tests to check for signs of infection. General instructions ??? Follow instructions fr (more content not included)... [facility] 01-26-2024 Note [facility] Cardiology Clinic Note Chief Complaint: Patient is here today for follow up [facility] visit. She was having chest pressure, [...] 479 g, Rfl (more content not included)... [facility] 10-26-2023 Note [facility] Consul t Note [...] sleep apnea 10/02/2022 SOBIA=17.7 events/hour; Pranav SaO2=76%; Kumspq=671.0 lbs; BMI=52.7 kg/m2, Home Sleep Apnea Testing on 09/25/2022 at [facility] PSH: Past Surgical History: Procedure Laterality [...] Allergen Reactions Penicillins (more content not included)... 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 She is on po bumex daily. For [...] kidney disease COPD (chronic obstructive pulmonary disease) ([facility]) Hypertension Myocardial infarction ([facility]) Obstructive sleep apnea 10/02/2022 SOBIA=17.7 events/hour; Pranav SaO2=76%; Bpvvya=413.0 lbs; BMI=52.7 kg/m2, Home Sleep Apnea Testing on 09/25/2022 at [facility] Family History Problem Relation Name Age [...] the morning, afternoon, and at bedtime. omega 4-zxr-xje-fish oil 350 mg-235 mg- 90 mg-597 mg [...] past 168 hour(s)) (more content not included)... 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 patient reports that overall she [...] further. She was able to walk around [employer] store which she previously was not able to do without taking long breaks. Reports improved sleep at night. Her back pain is significantly improved laying flat. Patient denies issues with incisions other than some bruising. Steri-Strips are still intact. Denies any fevers chills . Denies any drainage or discharge from incision. Patient reports that she becerra (more content not included)... [facility] 05-31-2023 Note Interventional Pain Management Nursing Note / Nurse Post-Call Note S/p SHANTE TFESI S1 Patient reports pain level 0. Pre procedure pain level 8 on 05/31/23. Denies problems or complications. Reminded of next appointment 07/09/23 at 1030. [facility] Evaluation + Plan note No data available for this section [facility] Evaluation note Diagnosis Onset Date CKD (chronic kidney disease) stage 4, GFR 15-29 ml/min acute Hyperkalemia acute [id number] acute Secondary hyperparathyroidism acute Chronic kidney disease nonea [facility] Work Phone: Evaluation note* Diagnosis OME (otitis media with effusion), right- Primary Nonintractable headache, unspecified chronicity pattern, unspecified headache type [facility] Diagnosis OME (otitis media with effusion), right- Primary ETD (Eustachian tube dysfunction), right 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 [facility] No data available for this section [facility] Summary Purpose Family History Relationship Condition Age [...] disease) stage 4, GFR 15-29 ml/min Hyperkalemia [id number] Secondary hyperparathyroidism Chronic kidney disease Additional Source Comments INFORMATION SOURCE (unrecogn ized section and content) DATE CREATED AUTHOR 09/08/2017 [facility] DATE CREATED AUTHOR AUTHOR'S ORGANIZ ATION 09/27/2020 [facility] DATE CREATED AUTHOR AUTHOR'S ORGANIZ ATION 07/24/2022 [facility] DATE CREATED AUTHOR AUTHOR'S ORGANIZ ATION 05/06/2024 [facility] DATE CREATED AUTHOR AUTHOR'S ORGANIZ ATION 05/10/2024 [facility] DATE CREATED AUTHOR AUTHOR'S ORGANIZ ATION 05/11/2024 [facility] DATE CREATED AUTHOR AUTHOR'S ORGANIZ ATION 05/28/2024 [facility] Care Teams (unrecognized sec tion and content) Team Status: Active Member Role Status Dates Debbie Arvizu MD Primary Care Provider Active Team Status: Inactive Member Role Status Dates Debbie Arvizu MD Primary Care Provide r, Referring Provider Active Start: January 06, 2024 End: January 06, 2024 Lizette Schaffer MD Attending Provider Active Start : January 06, 2024 End: January 06, 2024 [employer] Relationship Specialty Start Date End Date Debbie Arvizu MD [address] [place] [id number] PCP - General Family Medicine 05/09/24 [employer] Relationship Specialty Start Date End Date Debbie Arvizu MD [address] [place] [address] PCP - General Family Medicine 05/09/24 [employer] Relationship Specialty Start Date End Date Debbie Arvizu MD [address] [place] [address] PCP - General [facility] 05/09/24 [employer] Relationship Specialty Start Date End Date Debbie Arvizu MD [address] [place] [address] PCP - General Family Medicine 05/09/24 Goals (unrecognized section and content) Goals may be documented in a n alternate section No data available for this section No data available for this section Reason for Visit (unrecogniz ed section and content) Reason Comments Ear Problem Audio 05/04/24 rika durand Reason Comments Ear Problem 6 week check ears/ s inus XR [facility] 05/09/24 FOR RECORDS PERTAINING TO PATIENTS WHO ARE [...] THE PRIMARY CLINICAL RECORDS. [facility] [employer] [facility]. provides no warranty or guarantee of the accuracy or completeness of information in this document.
[2024-06-20 11:22] LABS: Basophils Percent Auto 0.4 % (0.2-2.0); Eosinophils Absolute Auto 0.1 10^3/uL (0.0-0.7); Eosinophils Percent Auto 0.9 % (0.9-7.0); Hematocrit 36.1 % (36.0-48.0); Hemoglobin 11.1 g/dL (12.0-16.0); Immature Granulocytes Abs Auto 0.03 10^3/uL (0.00-0.03); Immature Granulocytes Pct Auto 0.4 % (0.0-0.5); Lymphocytes Absolute Auto 1.2 10^3/uL (1.2-3.8); Lymphocytes Percent Auto 15.4 % (20.5-60.0); Mean Corpuscular HGB Conc 30.7 g/dL (29.9-35.2); Mean Corpuscular Hemoglobin 28.8 pg (26.7-34.0); Mean Corpuscular Volume 93.5 fL (81.0-99.0); Mean Platelet Volume 9.5 fL (9.5-13.5); Monocytes Absolute Auto 0.7 10^3/uL (0.3-0.8); Monocytes Percent Auto 9.2 % (1.7-12.0); Neutrophils Absolute Auto 5.5 10^3/uL (1.4-6.5); Neutrophils Percent Auto 73.7 % (43.0-75.0); Platelet Count 230 10^3/uL (150-450); Red Blood Count 3.86 10^6/uL (4.20-5.40); Red Cell Distribution Width 13.9 % (11.0-15.0); White Blood Count 7.5 10^3/uL (4.0-11.0)
[2024-06-20 11:31] LABS: Estimated Average Glucose 103 mg/dL; Glycohemoglobin A1C 5.2 % (4.5-6.2)
[2024-06-20 11:41] LABS: Alanine Aminotransferase 10 U/L (14-59); Albumin Globulin Ratio 0.8; Alkaline Phosphatase 82 U/L (46-116); Anion Gap 12.6; Aspartate Amino Transferase 15 U/L (15-37); BUN Creatinine Ratio 18.1; Bilirubin Total 0.5 mg/dL (0.2-1.0); Carbon Dioxide 26.2 mmol/L (21.0-32.0); Chloride 108 mmol/L (98-107); Estimated GFR (African America 28 (>=60 mL/min/1.73m^2); Estimated GFR (Non-African Ame 23 (>=60 mL/min/1.73m^2); Globulin 3.9 g/dL; Glucose 97 mg/dL (74-106); Potassium 4.8 mmol/L (3.5-5.1); Sodium 142 mmol/L (136-145); Total Protein 6.9 g/dL (6.4-8.2)
[2024-06-20 11:56] LABS: Chol HDL Ratio 2.8; Cholesterol 146 mg/dL (<=200); Free T3 2.57 pg/mL (2.18-3.98); HDL Cholesterol 53 mg/dL (40-60); Thyroid Stimulating Hormone 0.008 uIU/mL (0.358-3.740); Triglycerides 55 mg/dL (<=150)
== END 2024-06-20 10:34 | disposition home or self-care (01) ==
LOC: LAB 10:33
PROVIDERS: PCP Family Medicine; Visit Provider Family Medicine
DX: R53.83 Other fatigue (principal); E78.00 Pure hypercholesterolemia, unspecified; Z12.11 Encounter for screening for malignant neoplasm of colon
CPT/HCPCS: 36415; 80053; 80061; 83036; 84436; 84443; 84481; 85025

== ENCOUNTER 2024-06-20 10:36 | Outpatient (OUT) | payer MEDICARE, SELFPAY ==
--- OUTSIDE RECORDS SUMMARY | 2024-06-20 10:47 | XMS_ITS | CCD ---
Author Organization [facility] Care Team Providers Care Public Health Analyst Name Role Phone PHYSICIAN, DEFAULT Unavailable Unavailable PHYSICIAN, DEFAULT Unavailable Unavailable DEBBIE ARVIZU Unavailable Unavailable HOY ., DR LEWIS Consulting Unavailable HOY ., DR LEWIS Attending Unavailable HOY ., DR LEWIS Primary Care Unavailable HOY ., DR LEWIS Admitting Unavailable ELTOPIA, DR RAJI Odonnell Consulting Unavailable HOY ., [...] Unavailable HOY ., DR LEWIS Admitting Unavailable ELTOPIA, DR RAJI Odonnell Consulting Unavailable Debbie Arvizu Primary Care Physician Radha BELTRÁN, Cande Venegas Attending Unavailable Radha BELTRÁN, Cande Venegas Attending Unavailable Debbie Arvizu MD Primary Care Provider JOHN MATHEWS Attending Unavailable DEBBIE ARVIZU Referring [...] allergy (disorder) 5 AOF, Unknown Reaction [facility] Repository (1 source) Adhesive Tape Allergy to substance 4 skin rash [facility] (3 sources) Adhesive bandage; Translations: [Adhesive Bandage] Drug allergy Weal (disorder) [facility] [place] (6 sources) Penicillins Drug Allergy 2 [facility] Medications Current Medications Medication Drug Class(es) Dates Sig (Normalized) Sig (Original) [id number] 200 actuat albuterol 0.09 mg/actuat metered dose [...] Coronary arteriosclerosis; Translations: [Atherosclerotic heart disease of nikolai coronary artery without angina pectoris] Onset: 5 [...] sources) Long-term current use of aspirin; Translations: [assisted (current) use of aspirin] Onset: 5 Episodic [...] object(s), not elsewhere classified, initial encounter; Translations: [[facility] SH[facility] OB NOT ELSW CLASS INI] Onset: [...] 08-12-2021 Episodic Other aftercare (1 source) Other mcfp (current) drug therapy; Translations: [[facility] CURRENT DRUG THERAPY] Onset: 08-14-2021 Episodic Other [...] for UCC. 4. Aspirin long-term use (Z79.82: assisted (current) use of aspirin) ASA. No BTs. Has pacemaker. Hx of CA but was asx, not sure when it [...] with voice recognition artificial intelligence software, specifically TriPlay, Space-Time Insight and or [employer]Slicker. Substitutions may have occurred due to the [...] hypertension Spina (more content not included)... Normal [facility] Comment on above: Result Comment: Elec tronically Signed By: ROSETTA ADAMS MD\.br\Date and Time Signed: 05/19/24 09:40 EST\.br\Electronically Co-Signed By: Elvi Posadas\.br\Date and Time Co-Signed: 05/19/24 09:01 EST Office Visiton 05-09-2024 Follow-up visit [id number] Brian Sadler se 1950 F Date Provider Department Center 05/09/2024 JOSEY ARNOLD [facility] Family History Problem Relation Age of Onset Other Mother Coronary artery disease Mother Other Mother Other Mother Other Father Hypertension Father Hyperlipidemia Father Other Daughter Family Status - Relation Status Age at Mother Father Daughter Level of Service:85881 OR OFFICE/OUTPATIENT ESTABLISHED LOW MDM 20 MIN Normal [facility] XR Sinuses [address] [place] [address] XRay Report Signed Patient: VERO SADLER MR#: [id number] : 1950 Acct:[id number] Age/Sex: 74 / F ADM Date: 05/09/24 Loc: RAD Attending Dr: John Mathews M.D. Ordering Physician: John Mathews M.D. Date of Service: 05/09/24 Procedure(s): XR sinus min 3V Accession Number(s): [id number] cc: Debbie Arvizu M.D.; John Mathews M.D. [place] [id number] Patient Name: VERO SADLER MRN: [id number] date: 1950 Sex: F Assigned Patient Location: RAD Current Patient Location: RAD Accession/Order Number: [id number] Exam Date: 05/09/2024 12:47 Report Date: 05/09/2024 [...] Kelly Lao M.D.05/09/2024 12:54 PM Dictation Location: [place] [address] Electronically authenticated by: [id number] Y Date: 05/09/2024 12:54 Dictated By: Kelly Lao M.D. Signed By: 05/09/24 1257 DD/ 1254 TD/TT: It Infrastructure Architect: ROBERTO CARLOS Radiology, Radiologi MD sim - 05/09/2024 [place] [address] XRay Report Signed Patient: VERO SADLER MR#: [id number] : 1950 Acct:[id number] Age/Sex: 74 / F ADM Date: 05/09/24 Loc: RAD Attending Dr: John Mathews M.D. Ordering Physician: John Mathews M.D. Date of Service: 05/09/24 Procedure(s): XR sinus min 3V Accession Number(s): [id number] cc: Debbie Arvizu M.D.; John Mathews M.D. The [place] [id number] Patient Name: VERO SADLER MRN: [facility]:[id number] date: 1950 Sex: F Assigned Patient Location: RAD Current Patient Location: RAD Accession/Order Number: [id number] Exam Date: 05/09/2024 12:47 Report Date: 05/09/2024 [...] Kelly Lao M.D.05/09/2024 12:54 PM Dictation Location: [place] [address] Electronically authenticated by: [id number] Y Date: 05/09/2024 12:54 Dictated By: Kelly Lao M.D. Signed By: 05/09/24 1257 DD/ 1254 TD/TT: It Infrastructure Architect: [facility] [employer] Radiology Study observation (narrative) [facility] [employer] XR Sinuses 3 ViewsOrdered By : Radiologist Radiology on 05-09-2024 [employer] Work Phone: Ambulatory Visit Summaryon 0 [...] receive a (more content not included)... Normal [facility] Urology Office/Clinic Noteon 03-31-2024 Urology Office/Clinic Note [...] gross hematuria. 4. 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 No BTs. Has pacemaker. Hx of CA but was asx, not sure when it [...] Follow-up With When Contact Information BRYAN BELTRÁN, SSAKIA SARGENT Additional Instructions: schedule cysto with pelvic exam to assess for JOSE ANTONIO Patient Education Cystoscopy Injection Treatments for Urinary Incontinence Jericho Peralta I, Elvi Posadas, personally scribed for Dr. Rosetta Adams on 03/31/2024 15:10:07. . Portions of this record may have been created with voice recognition artificial intelligence software, specifically TriPlay, Space-Time Insight and or CitySlicker. Substitutions may have occurred due to the [...] due t (more content not included)... Normal [facility] Comment on above: Result Comment: Elec tronically Signed By: ROSETTA ADAMS MD\.br\Date and Time Signed: 03/31/24 15:13 EST\.br\Electronically Co-Signed By: Elvi Posadas\.br\Date and Time Co-Signed: 03/31/24 15:10 EST\.br\Electronically Co-Signed By: Elvi Posadas\.br\Date and Time Co-Signed: 03/31/24 15:10 EST Office Visiton 01-26-2024 Follow-up visit [id number] Brian Sadler se 1950 F Date Provider Department Center 01/26/2024 271-TATO SALCIDO CARD [facility] Family History Problem Relation Age of Onset Other Mother Coronary artery disease Mother Other Mother Other Mother Other Father Hypertension Father Hyperlipidemia Father Other Daughter Family Status - Relation Status Age at Mother Father Daughter Level of Service:53195 OR OFFICE/OUTPATIENT ESTABLISHED LOW MDM 20 MIN Normal [facility] MR LUMBAR SPINE WO CONTRASTo n [...] narrowing. Electronically signed: Arnol Cutler MD. Normal [facility] Comment on above: Order Comment: ORDER IN EPIC NURSNOTEon 11-23-2023 SANDIE Coughlin from [employer] prepped pacemaker. Patient verbalizes no issues with device. Monitor hooked up for continuous patient monitoring throughout the scan. Normal [facility] Office Visiton 10-26-2023 Follow-up visit [id number] Brian Sadler se 1950 F Date Provider Department Center 10/26/2023 241-JOSEY KWOK LEEANN [facility] Family History Problem Relation Age of Onset Other Mother Coronary artery disease Mother Other Mother Other Mother Other Father Hypertension Father Hyperlipidemia Father Other Daughter Family Status - Relation Status Age at Mother Father Daughter Level of Service:82804 OR OFFICE/OUTPATIENT ESTABLISHED LOW MDM 20 MIN Normal [facility] Office Visiton 07-20-2023 Follow-up visit [id number] Brian Sadler se 1950 F Date Provider Department Center 07/20/2023 [id number]-WDSDSWOLLIE FELTON CCC NEPHRO Comprehensiv Family History Problem Relation Age of Onset Other Mother Coronary artery disease Mother Other Mother Other Mother Other Father Hypertension Father Hyperlipidemia Father Other Daughter Family Status - Relation Status Age at Mother Father Daughter Level of Service:95132 OR OFFICE/OUTPATIENT ESTABLISHED LOW MDM 20 MIN Reason for Visit and Comments: Follow-up [921443] Normal [facility] CREATININE, URINE, RANDOMon 07-09-2023 Creatinine (U) [Mass/Vol] 142.0 mg/dL Normal 26-299 [facility] Comment on above: Performed By: #### L [id number] #### [facility] ([facility]) [address] [place] [address] Performed By: #### L [id number] #### [facility] ([facility]) [address] [place] [address] Follow-Upon 07-09-2023 Follow-Up [id number] Brian Sadler se 1950 F Date Provider Department Center 07/09/2023 JOSE ANGEL LEE MP [facility] Family History Problem Relation Age of Onset Other Mother Coronary artery disease Mother Other Mother Other Mother Other Father Hypertension Father Hyperlipidemia Father Other Daughter Family Status - Relation Status Age at Mother Father Daughter Level of Service:24886 OR OFFICE/OUTPATIENT ESTABLISHED LOW MDM 20 MIN Reason for Visit and Comments: Follow-up [990732] - F/U S/P TFESI S1 - 30% pain relief Normal [facility] MICROALBUMIN, URINE, RANDOMo n 07-09-2023 Albumin DL <= 20 mg/L (U) [Mass/Vol] 2.3 mg/dL Normal [facility] Comment on above: Performed By: #### L [id number] #### [facility] ([facility]) [address] [place] [address] MICROALBUMIN/CREA TININE (MG/G) IN URINE 16.2 mg/g Creat Normal 0.0-30.0 [facility] Comment on above: Performed By: #### L [id number] #### [facility] ([facility]) [address] [place] [address] PROTEIN, URINE, RANDOMon Protein (U) [Mass/Vol] 16.6 mg/dL Normal [facility] Comment on above: Result Comment: Ther e are no established reference values for random urine specimens. Performed By: #### L [id number] ####[facility] ([facility])[address] [place] [address] RENAL FUNCTION PANELon 07-08 Albumin [Mass/Vol] 3.9 g/dL Normal 3.5-5.7 [facility] Comment on above: Performed By: #### L AB19 #### [facility] ([facility]) [address] [place] [address] Anion gap [Moles/Vol] 11 mmol/L Normal 7-20 [facility] Comment on above: Performed By: #### L AB19 #### [facility] ([facility]) [address] [place] [address] CALCIUM (MG/DL) CORRECTED FOR ALBUMIN IN SER/PLAS 9.18 mg/dL Normal [facility] Comment on above: Performed By: #### L AB19 #### [facility] ([facility]) [address] [place] [address] Calcium [Mass/Vol] 9.1 mg/dL Normal 8.6-10.3 [facility] Comment on above: Performed By: #### L AB19 #### [facility] ([facility]) [address] [place] [address] Chloride [Moles/Vol] 109 mmol/L High 98-107 [facility] Comment on above: Performed By: #### L AB19 #### [facility] [address] [place] [address] CO2 [Moles/Vol] 25 mmol/L Normal 21-31 [facility] Comment on above: Performed By: #### L AB19 #### [facility] ([facility]) [address] [place] [address] Creatinine [Mass/Vol] 2.24 mg/dL High 0.60-1.20 [facility] Comment on above: Performed By: #### L AB19 #### [facility] [address] [place] [address] FASTING? UNKNOWN Normal [facility] Comment on above: Performed By: #### L AB19 #### [facility] ([facility]) [address] [place] [address] GLOMERULAR FILTRATION RATE ML/MIN/1.73 SQ M.PREDICTED 22.7 mL/min/1.73m*2 Low >60.0 [facility] Comment on above: Result Comment: [facility]'s estimated glomerular filtration rate (eGFR) will [...] individuals. Performed By: #### L AB19 #### [facility] ([facility]) [address] [place] [address] Glucose [Mass/Vol] 83 mg/dL Normal 70-100 [facility] Comment on above: Performed By: #### L AB19 #### [facility] ([facility]) [address] [place] [address] Magnesium [Mass/Vol] 3.7 mg/dL Normal 2.5-5.0 [facility] Comment on above: Performed By: #### L AB19 #### [facility] ([facility]) [address] [place] [address] Potassium [Moles/Vol] 5.8 mmol/L High 3.5-5.1 [facility] Comment on above: Performed By: #### L AB19 #### [facility] ([facility]) [address] [place] [address] Sodium [Moles/Vol] 139 mmol/L Normal 136-145 [facility] Comment on above: Performed By: #### L AB19 #### [facility] ([facility]) [address] [place] [address] Urea nitrogen [Mass/Vol] 46 mg/dL High 7-25 [facility] Comment on above: Performed By: #### L AB19 #### [facility] ([facility]) [address] [place] [address] UREA NITROGEN/CREATINI NE (MASS RATIO) IN SER/PLAS 20.5 Normal [facility] Comment on above: Performed By: #### L AB19 #### [facility] ([facility]) [address] [place] [address] TSHon 07-09-2023 THYROTROPIN (MIU/L) IN SER/PLAS BY DETECTION LIMIT <= 0.05 MIU/L 0.03 mIU/L Low 0.34-5.60 [facility] Comment on above: Performed By: #### L AB129 ####[facility] ([facility])[address] [place] [address] Orders Onlyon 06-22-2023 Orders Only [id number] Brian Sadler se 1950 F Date Provider Department Center 06/22/2023 EMMANUEL BECK CCC NEPHRO Comprehensiv Family History Problem Relation Age of Onset Other Mother Coronary artery disease Mother Other Mother Other Mother Other Father Hypertension Father Hyperlipidemia Father Other Daughter Family Status - Relation Status Age at Mother Father Daughter Normal [facility] ANESon 05-31-2023 ANES --- Attestation signed [...] [place] Hypertension My[place] Obstructive sleep apnea 10/02/2022 SOBIA=17.7 events/hour; Pranav SaO2=76%; Dxnxfv=429.0 lbs; BMI=52.7 kg/m2, Home Sleep Apnea Testing on 09/25/2022 at [facility] Principle problems: Patient Active Problem List Diagnosis Date Noted 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 Symptomatic bradycardia 01/01/2023 Other secondary pulmonary hypertension ([facility]) 12/15/2022 KATIE on CPAP 12/15/2022 Nonsustained paroxysmal ventricular tachycardia ([facility]) 11/30/2022 A-fib ([facility]) 04/21/2022 Spinal stenosis of lumbar region with neurogenic claudication 01/30/2022 Lower abdominal pain 01/30/2022 Spondylosis of lumbosacral region without myelopathy or radiculopathy 01/30/2022 Essential hypertension 01/25/2020 Chest pain 07/27/2016 Dyspnea 07/27/2016 Edema 07/27/2016 Fatigue 07/27/2016 Lightheadedness 07/27/2016 Obstructive sleep apnea 10/02/2022 VT (ventricular tachycardia) ([facility]) 04/29/2022 Clinical trial exam 04/23/2022 Allergies: Allergies Allergen Reactions Penicillins Other Yeast infection 4 H 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 479 g 3 omega 4-syu-rnx-fish oil 350 mg-235 mg- 90 mg-597 mg [...] exam B (more content not included)... Normal [facility] HPon 05-31-2023 History Of Present Illness Vero Sadler is a 73 y.o. female presenting with low back pain Past Medical History She has a past medical history of Abnormal ECG, Adverse effect of anesthesia, Arthritis, Chronic kidney disease, COPD (chronic obstructive pulmonary disease) ([facility]), Hypertension, Myocardial infarction ([facility]), and Obstructive sleep apnea (10/02/2022). Surgical [...] Sedation: MAC Attending Physician: Dr. Dario Calderon Blocking Machine Tender: Rachel Prado, Fellow Procedure Details Informed consent [...] included. Esophagogastroduod (more content not included)... Normal [facility] HP --- Attestation signed by Jose [...] kidney disease, COPD (chronic obstructive pulmonary disease) ([facility]), Hypertension, Myocardial infarction ([facility]), and Obstructive sleep apnea (10/02/2022). Surgical [...] Sedation: MAC Attending Physician: Dr. Dario Calderon Blocking Machine Tender: Rachel Prado, Fellow Procedure Details Informed consent [...] colon prep. (more content not included)... Normal [facility] Prep for Procedureon 024 Prep for Procedure [id number] Vero Sadler 1950 F Date Provider Department [place] 05/24/2023 POONAM SINGLETON MP [facility] Family History Problem Relation Age of Onset Other Mother Coronary artery disease Mother Other Mother Other Mother Other Father Hypertension Father Hyperlipidemia Father Other Daughter Family Status - Relation Status Age at Mother Father Daughter Normal [facility] CBC AUTO DIFFon 07-17-2022 BASO # 0.0 103/ul Normal 0.0-0.1 [facility] Comment on above: Performed By: #### C BC #### [facility] [address] [place] [address] [address] Eusebia Moralez Basophils/100 WBC (Bld) 0.6 % Normal 0.2-2.0 [facility] Comment on above: Performed By: #### C BC #### [facility] [address] [place] [address] Dr. Eusebia Moralez EO # 0.2 103/ul Normal 0.0-0.7 [facility] Comment on above: Performed By: #### C BC #### [facility] [address] [place] [address] Dr. Eusebia Moralez Eosinophils/100 WBC (Bld) 2.2 % Normal 0.9-7.0 [facility] Comment on above: Performed By: #### C BC #### [facility] [address] [place] [address] Dr. Eusebia Moralez Erythrocyte distribution width (RBC) [Ratio] 13.0 % Normal 11.0-15.0 [facility] Comment on above: Performed By: #### C BC #### [facility] [address] [place] [address] Dr. Eusebia Moralez Hematocrit (Bld) [Volume fraction] 40.5 % Normal 36.0-48.0 [facility] Comment on above: Performed By: #### C BC #### [facility] [address] [place] [address] Dr. Eusebia Moralez Hemoglobin (Bld) [Mass/Vol] 12.7 g/dL Normal 12.0-16.0 [facility] Comment on above: Performed By: #### C BC #### [facility] [address] [place] [address] Dr. Eusebia Moralez IG # 0.02 10e3/ul Normal 0.00-0.03 [facility] Comment on above: Performed By: #### C BC #### [facility] [address] [place] [address] Dr. Eusebia Moralez IG % 0.3 % Normal 0.0-0.5 [facility] Comment on above: Performed By: #### C BC #### [facility] [address] [place] [address] Dr. Eusebia Moralez LYMPH # 1.4 103/ul Normal 1.2-3.8 [facility] Comment on above: Performed By: #### C BC #### [facility] [address] [place] [address] Dr. Eusebia Moralez Lymphocytes/100 WBC (Bld) 19.9 % Critically low 20.5-60.0 [facility] Comment on above: Performed By: #### C BC #### [facility] [address] [place] [address] Dr. Eusebia Moralez MANUAL DIFF REQ NO Normal [facility] Comment on above: Performed By: #### C BC #### [facility] [address] [place] [address] Dr. Eusebia Moralez MCH (RBC) [Entitic mass] 29.1 pg Normal 26.7-34.0 [facility] Comment on above: Performed By: #### C BC #### [facility] [address] [place] [address] Dr. Eusebia Moralez MCHC (RBC) [Mass/Vol] 31.4 g/dL Normal 29.9-35.2 [facility] Comment on above: Performed By: #### C BC #### [facility] [address] [place] [address] Dr. Eusebia Moralez MCV (RBC) [Entitic vol] 92.9 fL Normal 81.0-99.0 [facility] Comment on above: Performed By: #### C BC #### [facility] [address] [place] [address] Dr. Eusebia Moralez MONO # 0.7 103/ul Normal 0.3-0.8 [facility] Comment on above: Performed By: #### C BC #### [facility] [address] [place] [address] Dr. Eusebia Moralez Monocytes/100 WBC (Bld) 9.4 % Normal 1.7-12.0 [facility] Comment on above: Performed By: #### C BC #### [facility] [address] [place] [address] Dr. Eusebia Moralez NEUT # 4.7 103/ul Normal 1.4-6.5 [facility] Comment on above: Performed By: #### C BC #### [facility] [address] [place] [address] Dr. Eusebia Moralez Neutrophils/100 WBC (Bld) 67.6 % Normal 43.0-75.0 [facility] Comment on above: Performed By: #### C BC #### [facility] [address] [place] [address] Dr. Eusebia Moralez Platelet mean volume (Bld) [Entitic vol] 9.9 fL Normal 9.5-13.5 [facility] Comment on above: Performed By: #### C BC #### [facility] [address] [place] [address] Dr. Eusebia Moralez PLT 218 103/ul Normal 150-450 [facility] Comment on above: Performed By: #### C BC #### [facility] [address] [place] [address] Dr. Eusebia Moralez RBC 4.36 106/ul Normal 4.20-5.40 [facility] Comment on above: Performed By: #### C BC #### [facility] [address] [place] [address] Dr. Eusebia Moralez WBC 6.9 103/ul Normal 4.0-11.0 [facility] Comment on above: Performed By: #### C BC #### [facility] [address] [place] [address] Dr. Eusebia Moralez PROF CHEM 8 (BAS METB)on Anion gap [Moles/Vol] 9.0 mmol/L Normal [facility] Comment on above: Performed By: #### B MP #### [facility] [address] [place] [address] Dr. Eusebia Moralez Calcium [Mass/Vol] 9.2 mg/dL Normal 8.5-10.1 [facility] Comment on above: Performed By: #### B MP #### [facility] [address] [place] [address] Dr. Eusebia Moralez Chloride [Moles/Vol] 103 mmol/L Normal 98-107 [facility] Comment on above: Performed By: #### B MP #### [facility] [address] [place] [address] [address] Eusebia Moralez CO2 [Moles/Vol] 32.9 mmol/L Critically high 21.0-32.0 [facility] Comment on above: Performed By: #### B MP #### [facility] [address] [place] [address] [address] Eusebia Moralez Creatinine [Mass/Vol] 1.74 mg/dL Critically high 0.55-1.02 [facility] Comment on above: Performed By: #### B MP #### [facility] [address] [place] [address] [address] Eusebia Moralez EGFR-AF UGANDAN 35 mL/min/1.73m2 Critically low >=60 [facility] Comment on above: Performed By: #### B MP #### [facility] [address] [address] [address] Eusebia Moralez EGFR-NON AF UGANDAN 29 mL/min/1.73m2 Critically low >=60 [facility] Comment on above: Performed By: #### B MP #### [facility] [address] [address] [address] Eusebia Moralez Glucose [Mass/Vol] 101 mg/dL Normal 74-106 [facility] Comment on above: Performed By: #### B MP #### [facility] [address] [address] [address] Eusebia Moralez Potassium [Moles/Vol] 3.9 mmol/L Normal 3.5-5.1 [facility] Comment on above: Performed By: #### B MP #### [facility] [address] [address] [address] Eusebia Moralez Sodium [Moles/Vol] 141 mmol/L Normal 136-145 [facility] Comment on above: Performed By: #### B MP #### [facility] [address] [address] [address] Eusebia Moralez Urea nitrogen [Mass/Vol] 34.0 mg/dL Critically high 7.0-18.0 [facility] Comment on above: Performed By: #### B MP #### [facility] [address] [address] [address] Eusebia Moralez Urea nitrogen/Creatini ne [Mass ratio] 19.5 mg/mg Normal [facility] Comment on above: Performed By: #### B MP #### [facility] [address] [address] [address] Eusebia Moralez CBC AUTO DIFFon 07-02-2022 BASO # 0.1 103/ul Normal 0.0-0.1 [facility] Comment on above: Performed By: #### C BC ####[facility] [address] [address]DrRadha Moralez Basophils/100 WBC (Bld) 0.7 % Normal 0.2-2.0 [facility] Comment on above: Performed By: #### C BC ####[facility] [address] [address]Dr. Eusebia Moralez EO # 0.1 103/ul Normal 0.0-0.7 [facility] Comment on above: Performed By: #### C BC ####[facility] [address] [address]Dr. Eusebia Moralez Eosinophils/100 WBC (Bld) 1.8 % Normal 0.9-7.0 [facility] Comment on above: Performed By: #### C BC ####[facility] [address] [address]DrRadha Moralez Erythrocyte distribution width (RBC) [Ratio] 13.1 % Normal 11.0-15.0 [facility] Comment on above: Performed By: #### C BC ####[facility] [address] [address]DrRadha Moralez Hematocrit (Bld) [Volume fraction] 40.2 % Normal 36.0-48.0 [facility] Comment on above: Performed By: #### C BC ####[facility] [address] [address]DrRadha Moralez Hemoglobin (Bld) [Mass/Vol] 12.5 g/dL Normal 12.0-16.0 [facility] Comment on above: Performed By: #### C BC ####[facility] [address] [id number]. Eusebia Moralez IG # 0.01 10e3/ul Normal 0.00-0.03 [facility] Comment on above: Performed By: #### C BC ####[facility] [address] [id number]. Eusebia Moralez IG % 0.1 % Normal 0.0-0.5 [facility] Comment on above: Performed By: #### C BC ####[facility] [address] [address]Dr. Eusebia Moralez LYMPH # 1.5 103/ul Normal 1.2-3.8 [facility] Comment on above: Performed By: #### C BC ####[facility] [address] [address]Dr. Eusebia Moralez Lymphocytes/100 WBC (Bld) 22.6 % Normal 20.5-60.0 [facility] Comment on above: Performed By: #### C BC ####[facility] [address] [address]Dr. Eusebia Moralez MANUAL DIFF REQ NO Normal [facility] Comment on above: Performed By: #### C BC ####[facility] [address] [id number]. Eusebia Moralez MCH (RBC) [Entitic mass] 29.3 pg Normal 26.7-34.0 [facility] Comment on above: Performed By: #### C BC ####[facility] [address] [id number]. Eusebia Moralez MCHC (RBC) [Mass/Vol] 31.1 g/dL Normal 29.9-35.2 [facility] Comment on above: Performed By: #### C BC ####[facility] [address] [id number]. Eusebia Moralez MCV (RBC) [Entitic vol] 94.4 fL Normal 81.0-99.0 [facility] Comment on above: Performed By: #### C BC ####[facility] [address] [id number]. Eusebia Moralez MONO # 0.6 103/ul Normal 0.3-0.8 [facility] Comment on above: Performed By: #### C BC ####[facility] [address] [id number]. Eusebia Moralez Monocytes/100 WBC (Bld) 9.1 % Normal 1.7-12.0 [facility] Comment on above: Performed By: #### C BC ####[facility] [address] [id number]. Eusebia Moralez NEUT # 4.4 103/ul Normal 1.4-6.5 [facility] Comment on above: Performed By: #### C BC ####[facility] [address]ts[address] [address]Dr. Eusebia Moralez Neutrophils/100 WBC (Bld) 65.7 % Normal 43.0-75.0 [facility] Comment on above: Performed By: #### C BC ####[facility] [address] [id number]. Eusebia Moralez Platelet mean volume (Bld) [Entitic vol] 9.6 fL Normal 9.5-13.5 [facility] Comment on above: Performed By: #### C BC ####[facility] [address]acple[address] [address]Dr. Eusebia Moralez PLT 204 103/ul Normal 150-450 [facility] Comment on above: Performed By: #### C BC ####[facility] [address] [id number]. Eusebia Moralez RBC 4.26 106/ul Normal 4.20-5.40 [facility] Comment on above: Performed By: #### C BC ####[facility] [address] [id number]. Eusebia Moralez WBC 6.7 103/ul Normal 4.0-11.0 [facility] Comment on above: Performed By: #### C BC ####[facility] [address] [address]Dr. Eusebia Moralez PROF CHEM 8 (BAS METB)on Anion gap [Moles/Vol] 11.2 mmol/L Normal [facility] Comment on above: Performed By: #### B MP ####[facility] [address]bjenxr[address] [address]Dr. Eusebia Moralez Calcium [Mass/Vol] 9.2 mg/dL Normal 8.5-10.1 [facility] Comment on above: Performed By: #### B MP ####[facility] [address] [address]Dr. Eusebia Moralez Chloride [Moles/Vol] 109 mmol/L Critically high 98-107 [facility] Comment on above: Performed By: #### B MP ####[facility] [address] [place], [place] [address]Dr. Eusebia Moralez CO2 [Moles/Vol] 27.6 mmol/L Normal 21.0-32.0 [facility] Comment on above: Performed By: #### B MP ####[facility] [address] [place], [place] [address]Dr. Eusebia Moralez Creatinine [Mass/Vol] 1.49 mg/dL Critically high 0.55-1.02 [facility] Comment on above: Performed By: #### B MP ####[facility] [address] [place], [place] [address]Dr. Eusebia Moralez EGFR-AF UGANDAN 42 mL/min/1.73m2 Critically low >=60 [facility] Comment on above: Performed By: #### B MP ####[facility] [address] [address]Dr. Eusebia Moralez EGFR-NON AF UGANDAN 34 mL/min/1.73m2 Critically low >=60 [facility] Comment on above: Performed By: #### B MP ####[facility] [address]se[address] [place], [place] [address]Dr. Eusebia Moralez Glucose [Mass/Vol] 89 mg/dL Normal 74-106 [facility] Comment on above: Performed By: #### B MP ####[facility] [address]iz[address] [id number]. Eusebia Moralez Potassium [Moles/Vol] 4.8 mmol/L Normal 3.5-5.1 [facility] Comment on above: Performed By: #### B MP ####[facility] [address] [id number]. Eusebia Moralez Sodium [Moles/Vol] 143 mmol/L Normal 136-145 [facility] Comment on above: Performed By: #### B MP ####[facility] [address] [id number]. Eusebia Moralez Urea nitrogen [Mass/Vol] 27.0 mg/dL Critically high 7.0-18.0 [facility] Comment on above: Performed By: #### B MP ####[facility] [address] [address]Dr. Eusebia Moralez Urea nitrogen/Creatini ne [Mass ratio] 18.1 mg/mg Normal [facility] Comment on above: Performed By: #### B MP ####[facility] Rs[address]xy[address]ime[address] [id number]. Eusebia Moralez CT LUNG CANCER SCREENINGon 1 [...] AMBAR MOON Date: 2022-02-24 08:15 Normal [facility] PROF CHEM 8 (BAS METB)on Anion gap [Moles/Vol] 9.7 mmol/L Normal [facility] Comment on above: Performed By: #### B MP #### [facility] [address] [address] [address] Eusebia Moralez Calcium [Mass/Vol] 8.8 mg/dL Normal 8.5-10.1 [facility] Comment on above: Performed By: #### B MP #### [facility] [address] [address] [address] Eusebia Moralez Chloride [Moles/Vol] 107 mmol/L Normal 98-107 [facility] Comment on above: Performed By: #### B MP #### [facility] [address] [address] [address] Eusebia oMralez CO2 [Moles/Vol] 29.5 mmol/L Normal 21.0-32.0 [facility] Comment on above: Performed By: #### B MP #### [facility] [address] [address] [address] Eusebia Moralez Creatinine [Mass/Vol] 1.83 mg/dL Critically high 0.55-1.02 [facility] Comment on above: Performed By: #### B MP #### [facility] [address] [address] [address] Eusebia Moralez EGFR-AF UGANDAN 33 mL/min/1.73m2 Critically low >=60 [facility] Comment on above: Performed By: #### B MP #### [facility] [address] [address] [address] Eusebia Moralez EGFR-NON AF UGANDAN 27 mL/min/1.73m2 Critically low >=60 [facility] Comment on above: Performed By: #### B MP #### [facility] [address] [address] [address] Eusebia Moralez Glucose [Mass/Vol] 87 mg/dL Normal 74-106 [facility] Comment on above: Performed By: #### B MP #### [facility] [address] [place], [place] [address] Dr. Eusebia Moralez Potassium [Moles/Vol] 5.2 mmol/L Critically high 3.5-5.1 [facility] Comment on above: Performed By: #### B MP #### [facility] [address] [address] [address] Eusebia Moralez Sodium [Moles/Vol] 141 mmol/L Normal 136-145 [facility] Comment on above: Performed By: #### B MP #### [facility] [address] [address] [address] Eusebia Moralez Urea nitrogen [Mass/Vol] 37.0 mg/dL Critically high 7.0-18.0 [facility] Comment on above: Performed By: #### B MP #### [facility] [address] [address] [address] Eusebia Moralez Urea nitrogen/Creatini ne [Mass ratio] 20.2 mg/mg Normal [facility] Comment on above: Performed By: #### B MP #### [facility] [address] [address] [address] Eusebia Moralez PA STRESS/REST MULTIon 01-23 PA STRESS/REST MULTI Patient: VERO SADLER Exam Date: 01/23/2022 : 1950 Gender:F Ordering : DR DEBBIE ARVIZU . Admission #: [id number] Family : Order #: [id number] CLICK HERE TO VIEW EXAM RADIOLOGY REPORT [...] Harrison MD on 01/26/2022 at 13:45 Normal [facility] ECHOCARDIO M/2D COMPLETEon 1 03-23-2021 ECHOCARDIO M/2D COMPLETE Patient: VERO SADLER Exam Date: 01/21/2022 : 1950 Gender:F Ordering : DR DEBBIE RAVIZU . Admission #: [id number] Family : Order #: [id number] CLICK HERE TO VIEW EXAM ECHOCARDIOGRAM REPORT [...] Salcido M.D. on 01/21/2022 at 09:17 Normal [facility] XR DEXA BONE DENSITYon 01-21 XR DEXA [...] by: RAJI HARRISON Date: 2022-01-21 10:03 Normal [facility] BNPon 01-14-2022 Natriuretic peptide B (Bld) [Mass/Vol] 834.0 pg/mL Normal <=900.0 [facility] Comment on above: Performed By: #### T SH, BNP, CMP, T7, LIPID ####[facility] [address] [address]Dr. Eusebia Moralez CBC AUTO DIFFon 01-14-2022 BASO # 0.0 103/ul Normal 0.0-0.1 [facility] Comment on above: Performed By: #### C BC #### [facility] [address] [address] [address] Eusebia Moralez Basophils/100 WBC (Bld) 0.4 % Normal 0.2-2.0 [facility] Comment on above: Performed By: #### C BC #### [facility] [address] [address] [address] Eusebia Moralez EO # 0.1 103/ul Normal 0.0-0.7 [facility] Comment on above: Performed By: #### C BC #### [facility] [address] [place] [address] Dr. Eusebia Moralez Eosinophils/100 WBC (Bld) 1.1 % Normal 0.9-7.0 [facility] Comment on above: Performed By: #### C BC #### [facility] [address] [place] [address] Dr. Eusebia Moralez Erythrocyte distribution width (RBC) [Ratio] 15.0 % Normal 11.0-15.0 [facility] Comment on above: Performed By: #### C BC #### [facility] [address] [place] [address] Dr. Eusebia Moralez Hematocrit (Bld) [Volume fraction] 39.6 % Normal 36.0-48.0 [facility] Comment on above: Performed By: #### C BC #### [facility] [address] [place] [address] Dr. Eusebia Moralez Hemoglobin (Bld) [Mass/Vol] 12.4 g/dL Normal 12.0-16.0 [facility] Comment on above: Performed By: #### C BC #### [facility] [address] [place] [address] Dr. Eusebia Moralez IG # 0.02 10e3/ul Normal 0.00-0.03 [facility] Comment on above: Performed By: #### C BC #### [facility] [address] [place] [address] Dr. Eusebia Moarlez IG % 0.3 % Normal 0.0-0.5 [facility] Comment on above: Performed By: #### C BC #### [facility] [address] [place] [address] Dr. Eusebia Moralez LYMPH # 1.3 103/ul Normal 1.2-3.8 [facility] Comment on above: Performed By: #### C BC #### [facility] [address] [place] [address] Dr. Eusebia Moralez Lymphocytes/100 WBC (Bld) 17.9 % Critically low 20.5-60.0 [facility] Comment on above: Performed By: #### C BC #### [facility] [address] [place] [address] Dr. Eusebia Moralez MANUAL DIFF REQ NO Normal [facility] Comment on above: Performed By: #### C BC #### [facility] [address] [place] [address] Dr. Eusebia Moralez MCH (RBC) [Entitic mass] 29.8 pg Normal 26.7-34.0 [facility] Comment on above: Performed By: #### C BC #### [facility] [address] [place] [address] Dr. Eusebia Moralez MCHC (RBC) [Mass/Vol] 31.3 g/dL Normal 29.9-35.2 [facility] Comment on above: Performed By: #### C BC #### [facility] [address] [place] [address] Dr. Eusebia Moralez MCV (RBC) [Entitic vol] 95.2 fL Normal 81.0-99.0 [facility] Comment on above: Performed By: #### C BC #### [facility] [address] [place] [address] Dr. Eusebia Moralez MONO # 0.5 103/ul Normal 0.3-0.8 [facility] Comment on above: Performed By: #### C BC #### [facility] [address] [place] [address] Dr. Euesbia Moralez Monocytes/100 WBC (Bld) 7.0 % Normal 1.7-12.0 [facility] Comment on above: Performed By: #### C BC #### [facility] [address] [place] [address] Dr. Eusebia Moralez NEUT # 5.2 103/ul Normal 1.4-6.5 [facility] Comment on above: Performed By: #### C BC #### [facility] [address] [place] [address] Dr. Eusebia Moralez Neutrophils/100 WBC (Bld) 73.3 % Normal 43.0-75.0 [facility] Comment on above: Performed By: #### C BC #### [facility] [address] [place], [place] [address] Dr. Eusebia Moralez Platelet mean volume (Bld) [Entitic vol] 9.5 fL Normal 9.5-13.5 [facility] Comment on above: Performed By: #### C BC #### [facility] [address] [address] [address] Eusebia Moralez PLT 188 103/ul Normal 150-450 [facility] Comment on above: Performed By: #### C BC #### [facility] [address] [address] [address] Eusebia Moralez RBC 4.16 106/ul Critically low 4.20-5.40 [facility] Comment on above: Performed By: #### C BC #### [facility] [address] [address] [address] Eusebia Moralez WBC 7.0 103/ul Normal 4.0-11.0 [facility] Comment on above: Performed By: #### C BC #### [facility] [address] [address] [address] Eusebia Moralez FREE THYROXINE INDEX T7on FTI 2.45 Normal 1.30-4.50 [facility] Comment on above: Performed By: #### T SH, BNP, CMP, T7, LIPID ####[facility] [address] [id number]. Eusebia Moralez T3U 35.0 % Normal 30.0-39.0 [facility] Comment on above: Performed By: #### T SH, BNP, CMP, T7, LIPID ####[facility] [address] [place], [place] [address]Dr. Eusebia Moralez T4 [Mass/Vol] 7.00 ug/dL Normal 4.80-13.90 [facility] Comment on above: Performed By: #### T SH, BNP, CMP, T7, LIPID ####[facility] [address] [id number]. Eusebia Moralez IRONon 01-14-2022 Iron [Mass/Vol] 58.0 ug/dL Normal 50.0-170.0 [facility] Comment on above: Performed By: #### I MONIE #### [facility] [address] [place], [place] [address] Dr. Eusebia Moralez LIPID PROFILEon 01-14-2022 CHOL-HDL RATIO NORM SEE BELOW Normal [facility] Comment on above: Result Comment: 3.3 - 4.4 LOW RISK 4.4 - 7.1 AVERAGE RISK 7.1 - 11.0 MODERATE RISK >11.0 HIGH RISK Performed By: #### T SH, BNP, CMP, T7, LIPID ####[facility] [address] [address]Dr. Eusebia Moralez Cholesterol [Mass/Vol] 186 mg/dL Normal <=200 [facility] Comment on above: Performed By: #### T SH, BNP, CMP, T7, LIPID ####[facility] [address] [address]DrRadha Moralez Cholesterol in HDL [Mass/Vol] 45 mg/dL Normal 40-60 [facility] Comment on above: Performed By: #### T SH, BNP, CMP, T7, LIPID ####[facility] [address] [address]DrRadha Moralez Cholesterol in LDL [Mass/Vol] 118.4 mg/dL Normal [facility] Comment on above: Performed By: #### T SH, BNP, CMP, T7, LIPID ####[facility] [address] [id number]. Eusebia Moralez Cholesterol.total /Cholesterol in HDL [Mass ratio] 4.1 {ratio} Normal [facility] Comment on above: Performed By: #### T SH, BNP, CMP, T7, LIPID ####[facility] [address] [id number]. Eusebia Moralez HDL NORMAL > or = 60 mg/dl - LO W CARDIOVASCULAR RISK <40 mg/dl - HIGH CARDIOVASCULAR RISK Normal [facility] Comment on above: Performed By: #### T SH, BNP, CMP, T7, LIPID ####[facility] [address] [id number] Moralez LDL CALC NORMAL SEE BELOW Normal [facility] Comment on above: Result Comment: <100 mg/dl OPTIMAL 100 - 129 mg/dl NEAR OR ABOVE OPTIMAL 130 - 159 mg/dl BORDERLINE HIGH 160 - 189 mg/dl HIGH >190 mg/dl VERY HIGH Performed By: #### T SH, BNP, CMP, T7, LIPID ####[facility] [address] [address]DrRadha Moralez Triglyceride [Mass/Vol] 113 mg/dL Normal <=150 [facility] Comment on above: Performed By: #### T SH, BNP, CMP, T7, LIPID ####[facility] [address] [address]DrRadha Moralez VLDL CALC 22.6 mg/dL Normal [facility] Comment on above: Performed By: #### T SH, BNP, CMP, T7, LIPID ####[facility] [address] [address]Dr. Eusebia Moralez PROF 14(COMP METB)on 022 Albumin [Mass/Vol] 3.3 g/dL Critically low 3.4-5.0 [facility] Comment on above: Performed By: #### T SH, BNP, CMP, T7, LIPID #### [facility] [address] [address] [address] Eusebia Moralez Albumin/Globulin [Mass ratio] 0.9 {ratio} Normal [facility] Comment on above: Performed By: #### T SH, BNP, CMP, T7, LIPID #### [facility] [address] [address] [address] Eusebia Moralez ALP [Catalytic activity/Vol] 81 U/L Normal 46-116 [facility] Comment on above: Performed By: #### T SH, BNP, CMP, T7, LIPID #### [facility] [address] [address] [address] Eusebia Moralez ALT [Catalytic activity/Vol] 19 U/L Normal 14-59 [facility] Comment on above: Performed By: #### T SH, BNP, CMP, T7, LIPID #### [facility] [address] [address] [address] Eusebia Moralez Anion gap [Moles/Vol] 12.3 mmol/L Normal [facility] Comment on above: Performed By: #### T SH, BNP, CMP, T7, LIPID #### [facility] [address] [address] [address] Eusebia Moralez AST [Catalytic activity/Vol] 12 U/L Critically low 15-37 [facility] Comment on above: Performed By: #### T SH, BNP, CMP, T7, LIPID #### [facility] [address] [place] [address] Dr. Eusebia Moralez Bilirubin [Mass/Vol] 0.4 mg/dL Normal 0.2-1.0 [facility] Comment on above: Performed By: #### T SH, BNP, CMP, T7, LIPID #### [facility] [address] [place] [address] Dr. Eusebia Moralez Calcium [Mass/Vol] 8.9 mg/dL Normal 8.5-10.1 [facility] Comment on above: Performed By: #### T SH, BNP, CMP, T7, LIPID #### [facility] [address] [place] [address] Dr. Eusebia Moralez Chloride [Moles/Vol] 106 mmol/L Normal 98-107 [facility] Comment on above: Performed By: #### T SH, BNP, CMP, T7, LIPID #### [facility] [address] [place] [address] Dr. Eusebia Moralez CO2 [Moles/Vol] 27.4 mmol/L Normal 21.0-32.0 [facility] Comment on above: Performed By: #### T SH, BNP, CMP, T7, LIPID #### [facility] [address] [place] [address] Dr. Eusebia Moralez Creatinine [Mass/Vol] 1.51 mg/dL Critically high 0.55-1.02 [facility] Comment on above: Performed By: #### T SH, BNP, CMP, T7, LIPID #### [facility] [address] [address] [address] Eusebia Moralez EGFR-AF UGANDAN 41 mL/min/1.73m2 Critically low >=60 [facility] Comment on above: Performed By: #### T SH, BNP, CMP, T7, LIPID #### [facility] [address] [place] [address] Dr. Eusebia Moralez EGFR-NON AF UGANDAN 34 mL/min/1.73m2 Critically low >=60 [facility] Comment on above: Performed By: #### T SH, BNP, CMP, T7, LIPID #### [facility] [address] [address] [address] Eusebia Moralez Globulin (S) [Mass/Vol] 3.5 g/dL Normal [facility] Comment on above: Performed By: #### T SH, BNP, CMP, T7, LIPID #### [facility] [address] [place] [address] Dr. Eusebia Moralez Glucose [Mass/Vol] 129 mg/dL Critically high 74-106 [facility] Comment on above: Performed By: #### T SH, BNP, CMP, T7, LIPID #### [facility] [address] [place] [address] Dr. Eusebia Moralez Potassium [Moles/Vol] 4.7 mmol/L Normal 3.5-5.1 [facility] Comment on above: Performed By: #### T SH, BNP, CMP, T7, LIPID #### [facility] [address] [place] [address] Dr. Eusebia Moralez Protein [Mass/Vol] 6.8 g/dL Normal 6.4-8.2 [facility] Comment on above: Performed By: #### T SH, BNP, CMP, T7, LIPID #### [facility] [address] [place] [address] Dr. Eusebia Moralez Sodium [Moles/Vol] 141 mmol/L Normal 136-145 [facility] Comment on above: Performed By: #### T SH, BNP, CMP, T7, LIPID #### [facility] [address] [place] [address] Dr. Eusebia Moralez Urea nitrogen [Mass/Vol] 37.0 mg/dL Critically high 7.0-18.0 [facility] Comment on above: Performed By: #### T SH, BNP, CMP, T7, LIPID #### [facility] [address] [place], [place] [address] Dr. Eusebia Moralez Urea nitrogen/Creatini ne [Mass ratio] 24.5 mg/mg Normal [facility] Comment on above: Performed By: #### T SH, BNP, CMP, T7, LIPID #### [facility] [address] [place], [place] [address] Dr. Eusebia Moralez TSHon 01-14-2022 TSH 0.068 uIU/mL Critically low 0.358-3.740 [facility] Comment on above: Performed By: #### T SH, BNP, CMP, T7, LIPID ####[facility] [address] [place] [id number] Moralez Covid-19 PCR (CVDTB)on 10-13 SARS-CoV-2 (COVID-19) RNA DEREK+probe Ql (Unsp spec) Not detected Normal NOT DETECTED [facility] Comment on above: Result Comment: This test is not yet approved or cleared by the [place] FDA. When there are no FDA-approved or cleared tests available, and other criteria are met, FDA can make tests available under an emergency access mechanism called an Emergency Use Authorization (EUA). The EUA for this test is supported by the [place] of Health and Human Service's (HHS's) declaration [...] with SARS-CoV-2. Performed By: #### C VDTBH ####[facility] [address] [id number]. Eusebia Moralez MRI LSPINE WO CONon 10-11-19 [...] by: AMBAR MOON Date: 2021-10-10 07:29 Normal [facility] Pulmonary Progress Noteo n 09-13-2020 [facility] Pulmonary Progress Note [facility] Pt Name: VERO SADLER [address] [place] [address] MR#: [id number] [place] [address] ACCT: [id number] PROGRESS NOTE- Pulmonary : [facility] Date of Service: 09/13/20 Text NAME: VERO SADLER MR#: [id number] DATE OF SERVICE: 09/13/2020 OUTPATIENT PULMONARY PROGRESS [...] severity unknown. We will try to [facility] Pt Name: VERO SADLER [address] [place] [address] MR#: [id number] [place] [address] ACCT: [id number] PROGRESS NOTE- Pulmonary : [facility] [...] with the postoperative management if needed. TIM TOSCNAO MD DI/MODL/[id number] 2 CC: Dr. Rito Guerrero MD eSign Date and Time Tim Toscano MD Signature on File 09/26/20 1046 Normal [facility] GLYCO HEMOon 08-23-2020 HbA1c (Bld) [Mass fraction] 5.3 % Normal [facility] Comment on above: Result Comment: Milagro vidal Diagnosis HbA1c (%) --------- Diabetic > 6.4 Prediabetes 5.7-6.4 Normal < 5.7 Performed By: #### L 500.71006 #### Test performed at: [address] [address] CBC W/DIFFon 08-22-2020 BASO ABS 0.0 K/uL Normal 0.0-0.2 [facility] Comment on above: Performed By: #### L 200.90794 #### Test performed at: [address] [address] Basophils/100 WBC (Bld) 0.5 % Normal [facility] Comment on above: Performed By: #### L 200.55661 #### Test performed at: [address] [address] EOS ABS 0.1 K/uL Normal 0.0-0.5 [facility] Comment on above: Performed By: #### L 200.62107 #### Test performed at: [address] [address] Eosinophils/100 WBC (Bld) 1.2 % Normal [facility] Comment on above: Performed By: #### L 200.18859 #### Test performed at: [address] [address] Erythrocyte distribution width (RBC) [Ratio] 12.8 % Normal 11.5-14.5 [facility] Comment on above: Performed By: #### L 200.75541 #### Test performed at: [place] [id number] Hematocrit (Bld) [Volume fraction] 40.1 % Normal 36.0-48.0 [facility] Comment on above: Performed By: #### L 200.73748 #### Test performed at: [place] [address] Hemoglobin (Bld) [Mass/Vol] 12.4 g/dL Normal 12.0-15.0 [facility] Comment on above: Performed By: #### L 200.25741 #### Test performed at: [address] [address] IG % 0.3 % Normal [facility] Comment on above: Performed By: #### L 200.84213 #### Test performed at: [place] [address] IG ABS 0.02 K/uL Normal 0-0.05 [facility] Comment on above: Performed By: #### L 200.99269 #### Test performed at: [address] [address] Lymphocytes (Bld) [#/Vol] 1.3 10*3/uL Normal 1.2-3.5 [facility] Comment on above: Performed By: #### L 200.04948 #### Test performed at: [address] [address] Lymphocytes/100 WBC (Bld) 16.9 % Normal [facility] Comment on above: Performed By: #### L 200.36216 #### Test performed at: [address] [address] MCH (RBC) [Entitic mass] 29.0 pg Normal 25.4-34.6 [facility] Comment on above: Performed By: #### L 200.52075 #### Test performed at: [address] [address] MCHC (RBC) [Mass/Vol] 30.9 g/dL Low 31.5-36.5 [facility] Comment on above: Performed By: #### L 200.05810 #### Test performed at: [address] [address] MCV (RBC) [Entitic vol] 93.7 fL Normal 79.0-98.0 [facility] Comment on above: Performed By: #### L 200.51873 #### Test performed at: [address] [address] MONO ABS 0.8 K/uL Normal 0.0-1.0 [facility] Comment on above: Performed By: #### L 200.83010 #### Test performed at: [address] [address] Monocytes/100 WBC (Bld) 9.7 % Normal [facility] Comment on above: Performed By: #### L 200.49961 #### Test performed at: [address] [place], [place] [address] NEUTROPHIL ABS 5.5 K/uL Normal 1.4-6.6 [facility] Comment on above: Performed By: #### L 200.85603 #### Test performed at: [address] [address] Neutrophils/100 WBC (Bld) 71.4 % Normal [facility] Comment on above: Performed By: #### L 200.92646 #### Test performed at: [address] [address] NRBC # 0.000 K/uL Normal 0-0.012 [facility] Comment on above: Performed By: #### L 200.60996 #### Test performed at: [address] [address] NRBC % 0.0 /100 WBC Normal 0-0.2 [facility] Comment on above: Performed By: #### L 200.93266 #### Test performed at: [address] [address] Platelet mean volume (Bld) [Entitic vol] 10.1 fL Normal 8.7-12.4 [facility] Comment on above: Performed By: #### L 200.11705 #### Test performed at: [address] [address] Platelets (Bld) [#/Vol] 236 10*3/uL Normal 140-440 [facility] Comment on above: Performed By: #### L 200.68002 #### Test performed at: [address] [address] RBC (Bld) [#/Vol] 4.28 10*6/uL Normal 3.5-5.5 [facility] Comment on above: Performed By: #### L 200.40018 #### Test performed at: [place] [address] WBC (Bld) [#/Vol] 7.7 10*3/uL Normal 3.9-11.0 [facility] Comment on above: Performed By: #### L 200.90700 #### Test performed at: [address] [address] CHEST PA/AP & LATERAL OR 2 V WSon 08-22-2020 CHEST PA/AP & LATERAL OR 2 VWS STUDY: CHEST PA/AP LATERAL OR 2 VWS; 08/22/2020 2:35 pm INDICATION: COPD. COMPARISON: None. ACCESSION NUMBER(S): [id number] ORDERING CLINICIAN: Ovidio Baez FINDINGS: The lungs are clear without pleural effusion. Borderline cardiomegaly. Otherwise unremarkable mediastinum, eron, and pulmonary vasculature. Thoracic degenerative changes are present. IMPRESSION: No active disease in the chest. Normal [facility] COMP META PANELon 08-22-2020 Albumin [Mass/Vol] 3.4 g/dL Normal 3.4-5.0 [facility] Comment on above: Performed By: #### L 500.45331, L500.44067, L500.84003 #### Test performed at: [address] [address] ALK PHOS TOTAL 88 U/L Normal 45-117 [facility] Comment on above: Performed By: #### L 500.35294, L500.12187, L500.69314 #### Test performed at: [address] [address] ALT [Catalytic activity/Vol] 17 U/L Normal 13-61 [facility] Comment on above: Performed By: #### L 500.62803, L500.61503, L500.79034 #### Test performed at: [address] [address] AST [Catalytic activity/Vol] 12 U/L Low 15-37 [facility] Comment on above: Performed By: #### L 500.74785, L500.46052, L500.63995 #### Test performed at: [address] [address] BILI TOTAL 0.5 mg/dL Normal 0.2-1.0 [facility] Comment on above: Performed By: #### L 500.25132, L500.66485, L500.33118 #### Test performed at: [address] [address] Calcium [Mass/Vol] 9.0 mg/dL Normal 8.5-10.1 [facility] Comment on above: Performed By: #### L 500.06779, L500.96050, L500.76422 #### Test performed at: [address] [address] Chloride [Moles/Vol] 107 mmol/L Normal 98-107 [facility] Comment on above: Performed By: #### L 500.52449, L500.45569, L500.92010 #### Test performed at: [address] [address] CO2 [Moles/Vol] 29 mmol/L Normal 21-32 [facility] Comment on above: Performed By: #### L 500.92281, L500.27942, L500.11438 #### Test performed at: [address] [address] Creatinine [Mass/Vol] 1.280 mg/dL High 0.550-1.020 [facility] Comment on above: Performed By: #### L 500.78780, L500.02999, L500.53256 #### Test performed at: [address] [address] Glucose [Mass/Vol] 90 mg/dL Normal 70-99 [facility] Comment on above: Result Comment: Fast ing GLUCOSE reference range has been updated per (ADA) [place] [employer]'s recommendation. 06/07/2018 Performed By: #### L 500.08302, L500.86017, L500.71178 #### Test performed at: [address] [address] Potassium [Moles/Vol] 4.4 mmol/L Normal 3.5-5.1 [facility] Comment on above: Performed By: #### L 500.22699, L500.65173, L500.21492 #### Test performed at: [address] [address] Protein [Mass/Vol] 6.8 g/dL Normal 6.4-8.2 [facility] Comment on above: Performed By: #### L 500.59047, L500.13793, L500.10323 #### Test performed at: [address] [address] Sodium [Moles/Vol] 142 mmol/L Normal 136-145 [facility] Comment on above: Performed By: #### L 500.19085, L500.64633, L500.64745 #### Test performed at: [address] [address] Urea nitrogen [Mass/Vol] 21 mg/dL High 7-18 [facility] Comment on above: Performed By: #### L 500.26859, L500.55362, L500.91384 #### Test performed at: [address] [address] GFR ESTIMATEon 08-22-2020 IF AMER 50 Low > 60 [facility] Comment on above: Result Comment: eGFR (Estimated GFR) Units of measure:mL/min/1.73 meters sq. *CALCULATION REVISED 01/01/2015;IDMS-traceable MDRD equation eGFR is derived from the reexpressed MDRD Study equation using the following parameters: serum creatinine, age, gender and race. An eGFR<60 mL/min/1.73m2 for >3 months is consistent with chronic kidney disease. Refer to KDOQI guidelines for clinical interpretation. Performed By: #### L 500.17516, L500.27504, L500.29362 #### Test performed at: [place] [address] IF non-AFR AMER 41 Low > 60 [facility] Comment on above: Performed By: #### L 500.05279, L500.58406, L500.46709 #### Test performed at: [place] [address] TSH ULTRA SENSon 08-22-2020 TSH ULTRA SENS < 0.005 Low 0.358-3.74 [facility] Comment on above: Performed By: #### L 500.32515, L500.83874, L500.45650 #### Test performed at: [place] [address] LUMB SP COMP W FLEX/EXT 6 VW Son 07-23-2020 LUMB SP COMP W FLEX/EXT 6 VWS STUDY: LUMB SP COMP W FLEX/EXT 6 VWS ; 07/23/2020 9:01 am INDICATION: PAIN. COMPARISON: None. ACCESSION NUMBER(S): [id number] ORDERING CLINICIAN: Sacha Guerrero FINDINGS: No fracture [...] of the lumbar spine without instability. Normal [facility] Vital Signs Date Time Vital Sign Value Performing Clinician Facility 06-20-2024 09:36-0400 Body height 162.6 cm John Mathews MD Work Phone: [facility] 06-20-2024 09:36-0400 Body mass index (BMI) [Ratio] 50.46 kg/m2 John Mathews MD Work Phone: [facility] 06-20-2024 09:36-0400 Body weight 133.36 kg John Mathews MD Work Phone: [facility] 06-20-2024 09:36-0400 Diastolic blood pressure 78 mm[Hg] John Mathews MD Work Phone: [facility] 06-20-2024 09:36-0400 Systolic blood pressure 175 mm[Hg] John Mathews MD Work Phone: [facility] 05-09-2024 08:38-0500 Body height 162.6 cm John Mathews MD Work Phone: [facility] 05-09-2024 08:38-0500 Body mass index (BMI) [Ratio] 50.81 kg/m2 John Mathews MD Work Phone: [facility] 05-09-2024 08:38-0500 Body weight 134.26 kg John Mathews MD Work Phone: [facility] 05-09-2024 08:38-0500 Diastolic blood pressure 90 mm[Hg] John Mathews MD Work Phone: [facility] 05-09-2024 08:38-0500 Heart rate 87 /min John Mathews MD Work Phone: [facility] 05-09-2024 08:38-0500 Systolic blood pressure 170 mm[Hg] John Mathews MD Work Phone: [facility] 03-31-2024 14:50-0500 Blood Pressure Location ROSETTA ADAMS [facility] 03-31-2024 14:50-0500 Diastolic blood pressure 82 mm[Hg] ROSETTA ADAMS [facility] 03-31-2024 14:50-0500 Heart rate 86 /min ROSETTA NKANSAH-AMANKRA [facility] 03-31-2024 14:50-0500 Respiratory rate 16 /min ROSETTA NKANSAH-AMANKRA [facility] 03-31-2024 14:50-0500 Systolic blood pressure 152 mm[Hg] ROSETTA NKANSAH-AMANKRA [facility] 01-06-2024 13:02-0400 Body height 162.56 cm [facility] 01-06-2024 13:02-0400 Body mass index (BMI) [Ratio] 50.5 kg/m2 [facility] 01-06-2024 13:02-0400 Body temperature 96.3 [degF] [facility] 01-06-2024 13:02-0400 Body weight 133.46 kg [facility] 01-06-2024 13:02-0400 Diastolic blood pressure 90 mm[Hg] [facility] 01-06-2024 13:02-0400 Heart rate 81 /min [facility] 01-06-2024 13:02-0400 Respiratory rate 18 /min [facility] 01-06-2024 13:02-0400 SaO2% (BldA) [Mass fraction] 98 % [facility] 01-06-2024 13:02-0400 Systolic blood pressure 179 mm[Hg] [facility] Encounters Encounter Date Encounter Type Care Provider [...] 05-19-2024 End: 05-19-2024 ambulatory ROSETTA ADAMS Facility: [facility] Start: 05-09-2024 End: 05-09-2024 Bamboo flowsheet John Mathews MD Work Phone: [facility] Start: 05-09-2024 End: 05-09-2024 Bamboo flowsheet John Mathews MD Work Phone: [facility] Start: 05-09-2024 End: 05-09-2024 Clinisync Result Encounter John Mathews MD Work Phone: [facility] Unsolicited Start: 05-09-2024 End: 05-09-2024 ambulatory [facility] Start: 05-09-2024 End: 05-09-2024 Office outpatient new 45 minutes John Mathews MD Work Phone: [facility] Comment on above: OME (otitis media wi th effusion), right (Primary Dx); Nonintractable headache, unspecified chronicity pattern, unspecified headache type Start: 05-09-2024 End: 05-09-2024 ambulatory JOHN MATHEWS Not Available Start: 05-05-2024 End: 05-05-2024 ambulatory ROSETTA ADAMS Facility:[facility] Start: 05-05-2024 End: 05-05-2024 Patient encounter procedure ROSETTA ADAMS [facility] Start: 05-01-2024 End: 05-01-2024 ambulatory Cande Garcia MD Facility:[facility] Start: 03-31-2024 End: 03-31-2024 ambulatory ROSETTA ZAMUDIOBRIANAANDREEAJEAN-PIERRE Facility:[facility] Start: 03-31-2024 End: 03-31-2024 Patient encounter procedure ROSETTADOMINIQUE ADAMS [facility] Start: 02-22-2024 ambulatory ROSETTA ADAMS Facility:[facility] Start: 02-14-2024 End: 02-14-2024 ambulatory Cande Garcia MD Facility:[facility] Start: 02-08-2024 End: 02-08-2024 ambulatory [facility] Start: 01-26-2024 End: 01-26-20[facility] Start: 01-06-2024 End: 01-06-2024 ambulatory [facility] Work Phone: Start: 01-06-2024 End: 01-06-2024 Patient encounter procedure [facility] Javier Work Phone: Start: 11-23-2023 End: 11-23-2023 Encounter for other specified special examinations JOSE ANGEL MEEHAN [facility] Start: 11-23-2023 End: 11-23-2023 ambulatory JOSE ANGEL MEEHAN [facility] Start: 10-26-2023 End: 10-26-2023 ambulatory JOSEY [facility] Start: 07-20-2023 End: 07-20-2023 [facility] Start: 07-09-2023 ambulatory JOSE ANGEL MEEHAN [facility] Start: 06-30-2023 End: 06-30-2023 ambulatory [facility] Start: 05-31-2023 End: 05-31-2023 ambulatory JOSE ANGEL MEEHAN [facility] Start: 07-17-2022 End: 07-18-2022 ambulatory JOSEY [...] ARVIZU . Facility:[facility] Start: 07-28-[address] DEBIBE ARVIZU . Facili ty:[facility] Start: 09-29-2016 End: 09-30-2016 Ambulatory DEFAULT PHYSICIAN Facility:[facility] Procedures Date Procedure Procedure Detail Performing Clinician [...] Screening for malign ant neoplasm of colon [facility] Start: 11-13-2024 Influenza vaccination Influenz a Vaccine (Season Ended) [facility] Start: 06-20-2024 End: 06-20-2024 Patient encounter procedure [facility] Comment on above: Arrived Start: 05-09-2024 End: 05-09-2024 Patient encounter procedure 05/09/2024 8:40 AM EST Office Visit [facility] [address] [facility] [address] [place] [address] John Mathews MD [address] [facility] [address] [place] [address] Arrived [facility] Comment on above: Arrived Start: 11-14-2023 Influenza vaccination Influenza Vacc ine (#1) [facility] Start: 02-20-2016 Pneumococcal Vaccine : 65+ Years (1 of 1 - PCV) Pneumococcal Vaccine: 65+ Years (1 of 1 - PCV) [facility] Start: 1991 Screening for malign ant neoplasm of breast Mammogram [facility] Start: 1950 Screening for malign ant neoplasm of colon [facility] Renal function 2000 panel - Serum or Plasma [facility] Immunizations Immunization Date Immunization Notes Care Provider Fa cility 01-07-2021 SARS-CoV-2 (COVID-19 ) mRNA BNT-162b2 vax ROSETTA ADAMS [facility] [place] 12-17-2020 SARS-CoV-2 (COVID-19 ) mRNA BNT-162b2 kit ADAMS [facility] [place] Payers Date Payer Category Payer Medicare [id number] 2018 Private Health Insurance 2013 Medicare 1959 Medicare [id number] 1959 Unknown [id number] 1950 Unknown [id number] 2.16.84 0.1.271915.3.579.2.593 1950 Unknown [id number] 2.16.84 0.1.371903.3.579.2.593 1950 Unknown [id number] 2.16.84 0.1.832263.3.579.2.593 1951 Unknown [id number] 2.16.84 0.1.275326.3.579.2.593 1951 Unknown [id number] 2.16.84 0.1.493608.3.579.2.593 1951 Unknown [id number] 2.16.84 0.1.051813.3.579.2.593 1951 Unknown [id number] 2.16.84 0.1.350531.3.579.2.593 1951 Unknown [id number] 2.16.84 0.1.492885.3.579.2.593 1951 Unknown [id number] 2.16.84 0.1.737042.3.579.2.593 1951 Unknown [id number] 2.16.84 0.1.389463.3.579.2.593 1951 Unknown [id number] 2.16.84 0.1.298619.3.579.2.593 1951 Unknown [id number] 2.16.84 0.1.232691.3.579.2.593 1951 Unknown [id number] 2.16.84 0.1.298095.3.579.2.593 1951 Unknown [id number] 2.16.84 0.1.171310.3.579.2.593 1951 Unknown [id number] 2.16. 840.1.340340.3.579.2.196 1951 Unknown [id number] 2.16. 840.1.694214.3.579.2.196 1951 Unknown [id number] 2.16.84 0.1.395234.3.579.2.1259 1951 Unknown [id number] 2.16.8 40.1.572519.3.579.2.727 1951 Unknown [id number] 2.16.8 40.1.711720.3.579.2.727 1950 Unknown [id number] 2.16.8 40.1.186029.3.579.2.727 Unknown Unknown [id number] Social History Date Type Detail Facility Start: 01-06-2024 End: 03-31-2024 Tobacco smoking status NHIS Ex-smoker (finding) [facility] Start: 1950 Sex Assigned At Female [facility] Tobacco smoking status Never [facility] Start: 05-09-2024 End: 06-20-2024 Sex Assigned At Female [facility] Start: 1950 Sex assigned at Not on file [facility] Start: 05-09-2024 [facility] tobacco [facility] Start: 05-09-2024 Tobacco use and exposure Smokeless tobacco non-user [facility] Start: 05-09-2024 End: 06-20-2024 Alcoholic beverage intake Ex-drinker (finding) [facility] Start: 05-09-2024 End: 06-20-2024 History of Social function [facility] Functional Status Date Assessment Result Facility 03-31-2024 Functional Status N/A [facility] Clinical Notes 05-31-2023 to 06-20-2024 John Mathews [...] Active Ambulatory Problems Diagnosis Date Noted A-fib ([facility]) 04/21/2022 Chest pain 07/27/2016 CKD (chronic kidney disease) stage 4, GFR 15-29 ml/min ([facility]/HCC) 01/26/2024 Clinical trial exam 04/23/2022 Dyspnea [...] 05/09/2024 History of tobacco abuse 05/09/2024 Hypercholesterolemia ([facility]/HCC) 05/09/2024 Hypothyroidism ([facility]/HCC) 05/09/2024 Kidney stones 05/09/2024 Morbid obesity ([facility]/HCC) 05/09/2024 Multiple pulmonary nodules 05/09/2024 Stage 3a chronic kidney disease (HCC) ([facility]) 01/31/2024 Status post lumbar spine operation 05/09/2024 [...] ASA 10d preop documented in this encounter [facility] 05-19-2024 Note Patient Education Obstetrics and Gynecology [...] provider. Document Revised: 07/10/2021 Document Reviewed: 07/10/2021 [employer] Patient Education ? 2023 [employer]. [facility] 05-09-2024 Note [place] Cardiology Consul t Note Reason [...] obstructive pulmonary disease) (CMS/HCC) Hypertension Myocardial infarction ([facility]) Obstructive sleep apnea 10/02/2022 SOBIA=17.7 events/hour; Pranav SaO2=76%; Ludmkx=557.0 lbs; BMI=52.7 kg/m2, Home Sleep Apnea Testing on 09/25/2022 at [facility] PSH: Past Surgical History: Procedure Laterality Date CARDIAC CATHETERIZATION COLONOSCOPY 02/09/2023 EYE SURGERY CATARACT FOOT SURGERY Right tendon repair HYSTERECTOMY INSERT / REPLACE / REMOVE PACEMAKER 01/12/2023 OTHER SURGICAL HISTORY Bilateral 05/31/2023 S1 TFESI - 20% pain relief SH: Social Determinants of Health Tobacco Use: Low Risk (05/09/2024) Received from [facility] Patient History Smoking Tobacco Use: Never Smokeless [...] Needs (01/05/2023) Tr (more content not included)... [facility] 05-09-2024 History of Present illness Narrative [...] kidney disease) stage 4, GFR 15-29 ml/min ([facility]/HCC) 01/26/2024 Clinical trial exam 04/23/2022 Dyspnea 07/27/2016 Edema 07/27/2016 Essential hypertension (CMS/[facility]) 01/25/2020 Fatigue 07/27/2016 Hyperkalemia 01/26/2024 Lightheadedness 07/27/2016 Lower abdominal pain 01/30/2022 Nonsustained paroxysmal ventricular tachycardia (CMS/HCC) 11/30/2022 Obstructive sleep apnea syndrome 10/02/2022 Other secondary pulmonary hypertension (CMS/HCC) 12/15/2022 Secondary hyperparathyroidism ([facility]) 01/26/2024 Spinal stenosis of lumbar region with neurogenic claudication 01/30/2022 Spondylosis of lumbosacral region without myelopathy or radiculopathy 01/30/2022 Symptomatic bradycardia 01/01/2023 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 VT (ventricular tachycardia) (CMS/[facility]) 04/29/2022 Aspirin long-term use 05/09/2024 CAD (coronary artery disease) (CMS/[facility]) 05/09/2024 Chronic obstructive pulmonary disease ([facility]) 05/09/2024 Former smoker 05/09/2024 History of colon polyps 05/09/2024 History of tobacco abuse 05/09/2024 Hypercholesterolemia (CMS/[facility]) 05/09/2024 Hypothyroidism ([facility]) 05/09/2024 Kidney stones 05/09/2024 Morbid obesity ([facility]) 05/09/2024 Multiple pulmonary nodules 05/09/2024 Stage 3a chronic kidney disease (HCC) ([facility]) 01/31/2024 Status post lumbar spine operation 05/09/2024 [...] cause of BECERRA. documented in this encounter [facility] 04-12-2024 Hospital Discharge instructions Follow Up Care 04/12/2024 08:02:27 With:ROSETTA ADAMS MD, URL Address: When: Unknown [facility] [place] 03-31-2024 Hospital Discharge instructions Patient Education 03/31/2024 [...] including vitamins, herbs, eye drops, creams, and zrle-yor-focqlbm medicines. Any problems you or family members [...] provider tells you to take them. Taking xoqm-duf-duewrur medicines, vitamins, herbs, and supplements. Tests You [...] Follow these instructions at home: Medicines Take zwnm-jud-vtfriww and prescription medicines only as told by [...] provider. Document Revised: 11/12/2021 Document Reviewed: 10/11/2020 [employer] Patient Education 2023 [employer] 03/31/2024 15:09:42 Injection Treatments for Urinary [...] including vitamins, herbs, eye drops, creams, and hzsj-ixp-vpuezgo medicines. Any problems you or family members [...] provider tells you to take them. Taking xioa-ukl-sctcove medicines, vitamins, herbs, and supplements. General instructions [...] provider. Document Revised: 10/04/2020 Document Reviewed: 10/04/2020 [employer] Patient Education 2023 [employer]. 03/31/2024 15:09:34 Kegel Exercises Kegel Exercises [...] provider. Document Revised: 07/10/2021 Document Reviewed: 07/10/2021 [employer] Patient Education 2023 [employer]. Follow Up Care 02/22/2024 14:36:40 With:ROSETTA ADAMS MD, URL Address: When: Unknown [facility] 03-31-2024 Note Patient Education Obstetrics and [...] provider. Document Revised: 07/10/2021 Document Reviewed: 07/10/2021 [employer] Patient Education ? 2023 [employer]. Urology Cystoscopy Cystoscopy is a procedure [...] including vitamins, herbs, eye drops, creams, and qxnt-ozk-gygetoy medicines. ??? Any problems you or family [...] tells you to take them. ??? Taking sxte-vzl-fosdsjg medicines, vitamins, herbs, and supplements. Tests You may have an exam or testing, such as: ??? X-rays of the bladder, urethra, or kidneys. ??? CT scan of the abdomen or pelvis. ??? Urine tests to check for signs of infection. General instructions ??? Follow instructions fr (more content not included)... [facility] 01-26-2024 Note [facility] Cardiology Clinic Note Chief Complaint: Patient is here today for follow up [facility] ED visit. She was having chest [...] 479 g, Rfl (more content not included)... [facility] 10-26-2023 Note [facility] Consul t [...] sleep apnea 10/02/2022 SOBIA=17.7 events/hour; Pranav SaO2=76%; Sixqyz=086.0 lbs; BMI=52.7 kg/m2, Home Sleep Apnea Testing on 09/25/2022 at [facility] PSH: Past Surgical History: Procedure Laterality [...] Allergen Reactions Penicillins (more content not included)... [facility] 07-20-2023 Note Division of Nephrolo gy [...] was recently taken off spironolactone by her student advisor. She is on po bumex daily. For [...] kidney disease COPD (chronic obstructive pulmonary disease) ([facility]) Hypertension Myocardial infarction ([facility]) Obstructive sleep apnea 10/02/2022 SOBIA=17.7 events/hour; Pranav SaO2=76%; Nonpnv=044.0 lbs; BMI=52.7 kg/m2, Home Sleep Apnea Testing on 09/25/2022 at [facility] Family History Problem Relation Name Age [...] the morning, afternoon, and at bedtime. omega 3-ajy-keu-fish oil 350 mg-235 mg- 90 mg-597 mg [...] past 168 hour(s)) (more content not included)... 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 patient reports that overall she [...] further. She was able to walk around [employer] store which she previously was not able to do without taking long breaks. Reports improved sleep at night. Her back pain is significantly improved laying flat. Patient denies issues with incisions other than some bruising. Steri-Strips are still intact. Denies any fevers chills . Denies any drainage or discharge from incision. Patient reports that she becerra (more content not included)... [facility] 05-31-2023 Note Interventional Pain Management Nursing Note / Nurse Post-Call Note S/p SHANTE TFESI S1 Patient reports pain level 0. Pre procedure pain level 8 on 05/31/23. Denies problems or complications. Reminded of next appointment 07/09/23 at 1030. [facility] Evaluation + Plan note No data available for this section [facility] Evaluation note Diagnosis Onset Date CKD (chronic kidney disease) stage 4, GFR 15-29 ml/min acute Hyperkalemia acute [id number] acute Secondary hyperparathyroidism acute [facility] Work Phone: Evaluation note* [...] available for this section [facility] [place] Summary Purpose Family History Relationship Condition Age [...] disease) stage 4, GFR 15-29 ml/min Hyperkalemia [id number] Secondary hyperparathyroidism Chronic kidney disease Additional Source Comments INFORMATION SOURCE (unrecogn ized section and content) DATE CREATED AUTHOR 09/08/2017 [facility] DATE CREATED AUTHOR AUTHOR'S ORGANIZ ATION 09/27/2020 [facility] DATE CREATED AUTHOR AUTHOR'S ORGANIZ ATION 07/24/2022 [facility] DATE CREATED AUTHOR AUTHOR'S ORGANIZ ATION 05/06/2024 [facility] DATE CREATED AUTHOR AUTHOR'S ORGANIZ ATION 05/10/2024 [facility] DATE CREATED AUTHOR AUTHOR'S ORGANIZ ATION 05/11/2024 [facility] DATE CREATED AUTHOR AUTHOR'S ORGANIZ ATION 05/28/2024 [facility] Care Teams (unrecognized sec tion and content) Team Status: Active Member Role Status Dates Debbie Arvizu MD Primary Care Provider Active Team Status: Inactive Member Role Status Dates Debbie Arvizu MD Primary Care Provide r, Referring Provider Active Start: January 06, 2024 End: January 06, 2024 Lizette Schaffer MD Attending Provider Active Start : January 06, 2024 End: January 06, 2024 Public Health Analyst Relationship Specialty Start Date End Date Debbie Arvizu MD [address] [place] [id number] PCP - General Family Medicine 05/09/24 Public Health Analyst Relationship Specialty Start Date End Date Debbie Arvizu MD [address] [place] [address] PCP - General Family Medicine 05/09/24 Public Health Analyst Relationship Specialty Start Date End Date Debbie Arvizu MD [address] [place] [address] PCP - General [facility] 05/09/24 Public Health Analyst Relationship Specialty Start Date End Date Debbie Arvizu MD [address] [place] [address] PCP - General Family Medicine 05/09/24 Goals [...] BE BASED ON THE PRIMARY CLINICAL RECORDS. [facility] [employer] [facility]. provides no warranty or guarantee of the accuracy or completeness of information in this document.
[2024-06-20 11:22] LABS: Bilirubin Urine NEGATIVE (NEGATIVE); Blood Urine NEGATIVE (NEGATIVE); Clarity Urine CLEAR (CLEAR); Color Urine YELLOW (YELLOW); Creatinine Urine Random 127.97 mg/dL (20.00-300.00); Glucose Urine UA NEGATIVE (NEGATIVE); Ketones Urine NEGATIVE (NEGATIVE); Leukocyte Esterase Urine TRACE (NEGATIVE); Nitrite Urine NEGATIVE (NEGATIVE); Protein Creatinine Ratio Urine 0.24; Protein Urine NEGATIVE (NEG/TRACE); Total Protein Urine Random 30.4 mg/dL (<=11.9); Urobilinogen Urine 0.2 EU/dL (0.2-1.0)
[2024-06-20 11:33] LABS: Bacteria Urine SMALL #/HPF (NONE SEEN); Crystals Seen? None Seen #/HPF (None Seen); Mucus Urine TRACE (NONE SEEN); Squamous Epithelial Cell Urine MODERATE #/LPF (NONE/RARE)
[2024-06-20 11:34] LABS: Cast Seen? NONE SEEN #/LPF (NONE SEEN); RBC Urine 0-2 #/HPF (0-2); Urine Culture Indicated NO
[2024-06-20 11:39] LABS: Magnesium 1.6 mg/dL (1.8-2.4); Phosphorus 3.7 mg/dL (2.6-4.7)
[2024-06-20 11:45] LABS: Percent Iron Saturation 22.2 %
[2024-06-21 10:13] LABS: PTH, Intact 43 pg/mL (15-65)
== END 2024-06-20 10:37 | disposition home or self-care (01) ==
LOC: LAB 10:36
PROVIDERS: PCP Family Medicine; Visit Provider Internal Medicine
DX: E83.42 Hypomagnesemia (principal); E79.0 Hyperuricemia without signs of inflammatory arthritis and tophaceous disease; N18.9 Chronic kidney disease, unspecified; D63.1 Anemia in chronic kidney disease; E87.5 Hyperkalemia; N25.81 Secondary hyperparathyroidism of renal origin; R53.83 Other fatigue; E78.00 Pure hypercholesterolemia, unspecified; Z12.11 Encounter for screening for malignant neoplasm of colon
CPT/HCPCS: 36415; 80053; 80061; 81001; 82306; 82570; 82728; 82784; 83036; 83521; 83540; 83550; 83735; 83970; 84100; 84155; 84156; 84165; 84166; 84436; 84443; 84481; 84550; 85025; 86335

== ENCOUNTER 2024-06-21 14:13 | Outpatient (REF) | payer MEDICARE, SELFPAY ==
[2024-06-22 14:43] LABS: Internal Control Within Normal Limits; Occult Blood Positive
== END 2024-06-21 14:14 | disposition home or self-care (01) ==
LOC: LAB 14:13
PROVIDERS: PCP Family Medicine; Visit Provider Family Medicine
DX: R53.83 Other fatigue (principal); E78.00 Pure hypercholesterolemia, unspecified; Z12.11 Encounter for screening for malignant neoplasm of colon; R73.09 Other abnormal glucose
CPT/HCPCS: G0328

== ENCOUNTER 2024-06-26 08:58 | Outpatient (OUT) | payer MEDICARE, SELFPAY ==
[2024-06-26 10:14] LABS: INR 1.08; Partial Thromboplastin Time 29.3 sec (22.3-36.2); Prothrombin Time 11.4 sec (9.0-11.6)
== END 2024-06-26 08:59 | disposition home or self-care (01) ==
LOC: PST 08:59
PROVIDERS: PCP Family Medicine; Visit Provider Otolaryngology
DX: Z01.812 Encounter for preprocedural laboratory examination (principal); H65.91 Unspecified nonsuppurative otitis media, right ear; H69.91 Unspecified Eustachian tube disorder, right ear
CPT/HCPCS: 85610; 85730

== ENCOUNTER 2024-07-06 10:56 | Day surgery (SDC) | payer MEDICARE, SELFPAY ==
[2024-06-26 09:41] VITALS: BP 180/92; PULSE 70; TEMP 36.5; O2SAT 96; BMI 50.0
[2024-07-06] VITALS (10 sets, daily range): BP systolic 122–162; BP diastolic 55–77; PULSE 67–79; TEMP 36.3–36.7; O2SAT 94–99; BMI 50.0
--- NOTE | 2024-07-06 | OP_ITS ---
OPERATION DATE: 07/06/2024 PRIMARY CARE PHYSICIAN: Jeremiah Arvizu M.D. SURGEON: Lakshmi Viramontes M.D. PREOPERATIVE DIAGNOSIS: Right eustachian tube dysfunction and otitis media with effusion. POSTOPERATIVE DIAGNOSIS: Right eustachian tube dysfunction and otitis media with effusion. PROCEDURE: Right myringotomy and tube with microdissection, placement of T-tube and nasal endoscopy. ANESTHESIA: General LMA. COMPLICATIONS: None. FINDINGS: Right serous effusion and no significant nasopharyngeal pathology evident. INDICATIONS: This 74-year-old woman presented with right otitis media with effusion, unresponsive to aggressive medical management. PROCEDURE: Patient identified in the holding area and taken back to the OR where she was placed in the supine position. After induction of general anesthesia by LMA, the right ear was approached with the otomicroscope. An anterior radial myringotomy was performed and a modified Rashi?s T-tube was folded and inserted through the myringotomy and opened in the middle ear using microdissection. Attention was then turned to the nose. Afrin soaked pledgets were placed in each side. A 30 degree scope was passed through the right nostril, into the nasopharynx, and there was no nasopharyngeal pathology that would have caused the patient?s eustachian tube dysfunction. Patient was then awakened and taken to the recovery room in good condition. ANDREW
--- NOTE | 2024-07-06 11:39 | PC.NURSE ---
bilateral lower legs noted to have scaling; pinkish in color; no drainage noted; has bruising bilateral arms and hands
[2024-07-06] MEDS: LACTATED RINGER'S SOLUTION 1,000 ML 50 ML IV (11:42)
[2024-07-06] MEDS: OXYMETAZOLINE HCL 0.05% NASAL SPRAY 30 SPRAY NS (11:59)
== END 2024-07-06 13:25 | disposition home or self-care (01) ==
PROVIDERS: PCP Family Medicine; Visit Provider Otolaryngology
PROC: (CPT 31231; principal; 2024-07-06 12:30)
PROC: (CPT 31231; 2024-07-06 12:30)
DX: H65.91 Unspecified nonsuppurative otitis media, right ear (principal); H69.91 Unspecified Eustachian tube disorder, right ear; Z79.01 Long term (current) use of anticoagulants; J44.9 Chronic obstructive pulmonary disease, unspecified; I48.91 Unspecified atrial fibrillation; I25.10 Atherosclerotic heart disease of native coronary artery without angina pectoris; Z95.0 Presence of cardiac pacemaker; H90.71 Mixed conductive and sensorineural hearing loss, unilateral, right ear, with unrestricted hearing on the contralateral side; Z90.710 Acquired absence of both cervix and uterus; R06.00 Dyspnea, unspecified; I10 Essential (primary) hypertension; I27.20 Pulmonary hypertension, unspecified
CPT/HCPCS: 31231; 69436; 36415; J1100; J2405; J2704; J3010

== ENCOUNTER 2024-07-25 07:44 | Outpatient (RCR) | payer MEDICARE, SELFPAY ==
[2024-07-25 16:42] LABS: Basophils Percent Auto 0.5 % (0.2-2.0); Eosinophils Absolute Auto 0.1 10^3/uL (0.0-0.7); Hematocrit 38.8 % (36.0-48.0); Hemoglobin 11.9 g/dL (12.0-16.0); Immature Granulocytes Abs Auto 0.02 10^3/uL (0.00-0.03); Immature Granulocytes Pct Auto 0.3 % (0.0-0.5); Lymphocytes Absolute Auto 1.4 10^3/uL (1.2-3.8); Lymphocytes Percent Auto 21.6 % (20.5-60.0); Mean Corpuscular HGB Conc 30.7 g/dL (29.9-35.2); Mean Corpuscular Volume 94.6 fL (81.0-99.0); Mean Platelet Volume 9.9 fL (9.5-13.5); Monocytes Absolute Auto 0.8 10^3/uL (0.3-0.8); Monocytes Percent Auto 11.9 % (1.7-12.0); Neutrophils Absolute Auto 4.1 10^3/uL (1.4-6.5); Neutrophils Percent Auto 63.7 % (43.0-75.0); Platelet Count 215 10^3/uL (150-450); Red Cell Distribution Width 13.2 % (11.0-15.0); Reticulocyte Pct Auto 1.22 % (0.60-3.10); White Blood Count 6.5 10^3/uL (4.0-11.0)
[2024-07-25 16:59] LABS: Alanine Aminotransferase 10 U/L (14-59); Albumin Globulin Ratio 0.8; Albumin Level 3.1 g/dL (3.4-5.0); Alkaline Phosphatase 75 U/L (46-116); Anion Gap 9.2; Aspartate Amino Transferase 9 U/L (15-37); BUN Creatinine Ratio 16.7; Bilirubin Total 0.4 mg/dL (0.2-1.0); C Reactive Protein <0.50 mg/dL (<=0.50); Calcium 9.3 mg/dL (8.5-10.1); Carbon Dioxide 28.9 mmol/L (21.0-32.0); Chloride 106 mmol/L (98-107); Estimated GFR (African America 23 (>=60 mL/min/1.73m^2); Estimated GFR (Non-African Ame 19 (>=60 mL/min/1.73m^2); Globulin 3.7 g/dL; Glucose 88 mg/dL (74-106); Lactate Dehydrogenase 147 U/L (81-234); Potassium 5.1 mmol/L (3.5-5.1); Sodium 139 mmol/L (136-145); Total Protein 6.8 g/dL (6.4-8.2)
[2024-07-25 17:55] LABS: Erythrocyte Sedimentation Rate 96 mm/hr (<=30)
[2024-07-28 14:09] LABS: Albumin 3.2 g/dL (2.9-4.4); Alpha-1-Globulin 0.3 g/dL (0.0-0.4); Alpha-2-Globulin 0.9 g/dL (0.4-1.0); Free Lambda Lt Chains,S 26.6 mg/L (5.7-26.3); Gamma Globulin 0.9 g/dL (0.4-1.8); Immunofixation Result, Serum Comment: (.); Immunoglobulin A, Qn, Serum 179 mg/dL (64-422); Immunoglobulin G, Qn, Serum 1007 mg/dL (586-1602); Immunoglobulin M, Qn, Serum 87 mg/dL (26-217); Kappa/Lambda Ratio,S 1.58 (0.26-1.65); Protein, Total 6.2 g/dL (6.0-8.5)
== END 2024-07-26 08:04 | disposition home or self-care (01) ==
LOC: HEMC 07:44
PROVIDERS: PCP Family Medicine; Visit Provider Internal Medicine Hematology & Oncology
DX: D64.9 Anemia, unspecified (principal); Z90.710 Acquired absence of both cervix and uterus; Z95.0 Presence of cardiac pacemaker; Z87.891 Personal history of nicotine dependence; Z90.722 Acquired absence of ovaries, bilateral; D63.1 Anemia in chronic kidney disease; N18.30 Chronic kidney disease, stage 3 unspecified; R79.89 Other specified abnormal findings of blood chemistry
CPT/HCPCS: 36415; 80053; 82784; 83521; 83615; 84155; 84165; 85025; 85045; 85652; 86140; 86334; G0463

== ENCOUNTER 2024-07-28 22:56 | Observation (INO) | payer MEDICARE, SELFPAY ==
--- OUTSIDE RECORDS SUMMARY | 2024-07-28 23:01 | XMS_ITS | CCD ---
Author Organization [facility] Care Team Providers Care Farm Implement Engine Mechanic Name Role Phone PHYSICIAN, DEFAULT Unavailable Unavailable PHYSICIAN, DEFAULT Unavailable Unavailable DEBBIE BHATIA Unavailable Unavailable SRIRAM ., DR LEWIS Consulting Unavailable HOY ., DR LEWIS Attending Unavailable HOY ., DR LEWIS Primary Care Unavailable HOY ., DR LEWIS Admitting Unavailable GOFF, DR RAJI Odonnell Consulting Unavailable HOY ., [...] Unavailable HOY ., DR LEWIS Admitting Unavailable GOFF, DR RAJI Odonnell Consulting Unavailable Debbie Bhatia Primary Care Physician [phone] Radha BELTRÁN, Cande Venegas Attending Unavailable Radha BELTRÁN, Cande Venegas Attending Unavailable Debbie Bhatia MD Primary Care Provider JOHN MATHEWS Attending Unavailable DBEBIE BHATIA Referring Unavailable JOHN MATHEWS Attending Unavailable NKANSAH-AMANKRA, ROSETTA Attending Unavail able NKANSAH-AMANKRA, ROSETTA Attending Unavail able NKANSAH-AMANKRA, ROSETTA Referring Unavail able NKANSAH-AMANKRA, ROSETTA Admitting Unavail able NKANSAH-AMANKRA, ROSETTA Attending Unavail able Debbie Bhatia Referring Unavailable NKANSAH-AMANKRA, ROSETTA Attending Unavail able Debbie Bhatia MD Primary Care Provider Tracy BELTRÁN, Imjavier Attending Provider [phone] JOSEY KWOK Attending Unavailable TATO SALCIDO Attending Unavailable RYAN MEEHAN Referring Unavailable RYAN MEEHAN Referring Unavailable JOSEY KWOK Referring Unavailable JOSEY KWOK Referring Unavailable JOSEY KWOK Attending Unavailable NKANSAH-AMANKRA, ROSETTA Admitting Unavail able NKANSAH-AMANKRA, ROSETTA Referring Unavail able NKANSAH-AMANKRA, ROSETTA Attending Unavail able NKANSAH-AMANKRA, ROSETTA Admitting Unavail able NKANSAH-AMANKRA, ROSETTA Referring Unavail able NKANSAH-AMANKRA, ROSETTA Attending Unavail able ROSETTA MENDEZ Attending Unavail able Debbie Bhatia Primary Care Unavailable Asaad, Imjavier Attending Unavailable Asajavier, Imad Admitting Unavailable Allergies Allergy Classification Reported Allergen(s) Allergy Type Date of Onset Reaction(s) Facility (7 sources) Penicillins; Translations: [PENICILLINS] Drug allergy (disorder) 5 AOF, Unknown Reaction [facility] Repository Comment on above: yeast infection (4 sources) Adhesive Tape; Translations: [adhesive tape] Allergy to substance 4 skin rash [facility] (6 sources) Adhesive bandage; Translations: [Adhesive Bandage] Drug allergy Weal (disorder) [facility] [place] (7 sources) Penicillins Drug Allergy 2 [facility] (1 source) Penicillins Drug allergy (disorder) 5 [facility] Repository Medications Current Medications Medication Drug Class(es) Dates Sig (Normalized) Sig (Original) [id number] 200 actuat albuterol 0.09 mg/actuat metered dose inhaler (20 sources) beta2-Adrenergic Agonist Start: 01-06-2024 take 2.5 mg by inhalation every four to six hours as needed for wheezing Albuterol Sulfate 2.5 mg /3 mL (0.083 %) solution for nebulization Active 2.5 MG INHALATION EVERY 4-6 HOURS as needed for shortness of breath or wheezing January 06, 2024 12:00am Start: 01-06-2024 take 1 puff(s) by in halation four times daily as needed for wheezing Albuterol Sulfate 90 mcg/actuation HFA aerosol inhaler Active 2 PUFF INHALATION Four times daily as needed for shortness of breath or wheezing January 06, 2024 12:00am Start: 11-25-2022 take 2.5 mg by inhal ation four times daily albuterol 0.083% Inh Viviana 3 mL 2.5 mg, 3 mL, NEB, QID Shortness of breath or wheezing, Refill(s) 0 Start Date: 11/25/22 Status: Ordered Repeat number: 1 Start: 11-25-2022 take 2 puff(s) by in halation every four hours Albuterol (Eqv-ProAir HFA) 2 puff(s), Inhalation, q4hr Shortness of breath or wheezing, Refill(s) 0 Start Date: 11/25/22 Status: Ordered Repeat number: 1 Start: 11-25-2022 take 2 puff(s) by in halation every four hours Albuterol (Eqv-ProAir HFA) 2 puff(s), Inhalation, q4hr Shortness of breath or wheezing, Refill(s) 0 Start Date: 11/25/22 Status: Ordered take 2 puff(s) by in halation every four hours albuterol HFA 90 mcg/act inhaler Inhale 2 puffs every 4 (four) hours if needed Active aspirin 81 mg delayed release oral tablet (15 sources) Platelet Aggregation Inhibitor, Nonsteroidal Anti-inflammatory Drug Start: 11-25-2022 Aspirin (Adult Low Dose Aspirin) 81 mg tablet,delayed release (DR/EC) Active 81 MG PO Daily January 06, 2024 12:00am azelastine hydrochloride 0.137 mg/actuat metered dose nasal spray (3 sources) Histamine-1 Receptor Antagonist Start: 06-08-2024 Azelastine HCl 137 MCG/SPRAY solution every 12 (twelve) hours 06/08/2024 Active bumetanide 1 mg oral tablet (7 sources) Loop Diuretic Start: 11-25-2022 take 1 tablet by mouth once daily Bumetanide 1 mg tablet Active 1 MG PO Daily January 06, 2024 12:00am carvedilol 25 mg oral tablet (7 sources) alpha-Adrenergic Florence, beta-Adrenergic Florence Start: 01-06-2024 take 12.5 mg by mouth twice daily Carvedilol Active 12.5 MG PO Twice daily January 06, 2024 12:00am Start: 11-25-2022 Carvedilol 25 mg tablet Active 12.5 MG PO Twice daily January 06, 2024 12:00am cephalexin 500 mg oral capsule (1 source) Cephalosporin Antibacterial Start: 07-13-2024 End: 07-18-2024 take 1 capsule by mouth every twelve hours Keflex 500 mg Cap 500 mg = 1 cap(s), Oral, q12hr, X 5 day(s), # 10 cap(s), Refills(s) 0, Pharmacy: [facility]/pharmacy #[id number], 160.1, cm, 06/26/24 14:41:00 EDT, Height/Length Dosing, 136.8, kg, 06/26/24 14:41:00 EDT, Weight Dosing Start Date: 07/13/24 Stop Date: 07/18/24 Status: Ordered Quantity: 10.0 Unit: cap(s) Repeat number: 1 diclofenac potassium 50 mg oral tablet (2 [...] effects) hydrALAZINE hydrochloride 100 mg oral tablet (10 sources) Arteriolar Vasodilator Start: 11-25-2022 End: 05-09-2024 take 1 tablet by mouth three times daily Hydralazine 100 mg tablet Active 100 MG PO Three times daily January 06, 2024 12:00am isosorbide [...] Start Date: 11/25/22 Status: Ordered levothyroxine sodium 0.088 mg oral tablet (17 sources) l-Thyroxine Start: 06-27-2024 take 1 tablet by mouth once Levothyroxine 88 mcg tablet Active 88 MCG PO Once June 27, 2024 12:00am Start: 06-26-2024 take 1 capsule by mo uth once daily levothyroxine 88 mcg (0.088 mg) oral capsule 88 mcg = 1 cap(s), Oral, Daily, Refills(s) 0, Thyroid Start Date: 06/26/24 Status: Ordered Repeat number: 1 Start: 01-06-2024 End: 06-27-2024 take 1 capsule by mouth once daily Levothyroxine 100 mcg capsule Discontinued 100 MCG PO Daily January 06, 2024 12:00am June 27, 2024 11:17am Start: 11-25-2022 take 1 tablet by shaun th once daily levothyroxine 100 mcg (0.1 mg) Tab 100 mcg = 1 tab(s), Oral, Daily, Refills(s) 0 Start Date: 11/25/22 Status: Ordered take 1 tablet by shaun th before mealtime levothyroxine (Synthroid, Levoxyl) 100 MCG tablet Take 100 mcg by mouth in the morning. Take before meals. Active liothyronine (15 sources) l-Triiodothyronine Start: 01-06-2024 take 1 tablet by mouth once daily Liothyronine 25 mcg tablet Active 37.5 MCG PO Daily January 06, 2024 12:00am Start: 01-06-2024 take 37.5 ug by mout h once daily Liothyronine Active 37.5 MCG PO Daily January 06, 2024 12:00am Start: 11-25-2022 Cytomel 25 mcg Tab 37.5 mcg = 1.5 tab(s), Oral, Daily, Refills(s) 0 Start Date: 11/25/22 Status: Ordered Repeat number: 1 Start: 11-25-2022 take 1 tablet by shaun th once daily Cytomel 25 mcg Tab 25 mcg = 1 tab(s), Oral, Daily, Refills(s) 0 Start Date: 11/25/22 Status: Ordered take 1.5 tablets by mouth in the morning liothyronine (Cytomel) 25 MCG tablet Take 1.5 tablets by mouth in the morning. Active lisinopril 10 mg oral tablet (15 sources) Angiotensin Converting Enzyme Inhibitor Start: 01-06-2024 take 1 tablet by mouth once daily Lisinopril 10 mg tablet Active 10 MG PO Daily January 06, 2024 12:00am Start: 11-25-2022 take 1 tablet by shaun th once daily lisinopril 5 mg Tab 5 mg = 1 tab(s), Oral, Daily, Refills(s) 0 Start Date: 11/25/22 Status: Ordered lovastatin 20 mg oral tablet (15 sources) HMG-CoA Reductase Inhibitor Start: 11-25-2022 take 1 tablet by mouth once daily Lovastatin 20 mg tablet Active 20 MG PO Daily January 06, 2024 12:00am magnesium oxide 400 mg oral tablet (1 source) Start: 06-27-2024 take 1 tablet by mouth once daily Magnesium Oxide 400 mg magnesium tablet Active 400 MG PO Daily June 27, 2024 12:00am Magnesium Sulfate (1 source) Start: 07-13-2024 magnesium sulf ate Refills(s) 0 Start Date: 07/13/24 Status: Ordered Repeat number: 1 ondansetron 4 mg disintegrating oral tablet (2 sources) Serotonin-3 Receptor Antagonist Start: 11-25-2022 take 1 tablet by mouth every six hours as needed for nausea ondansetron 4 mg Dis Tab 4 mg = 1 tab(s), Oral, q6hr, PRN Nausea/Vomiting, Refills(s) 0 Start Date: 11/25/22 Status: Ordered pantoprazole 40 mg delayed release oral tablet (9 sources) Proton Pump Inhibitor Start: 03-31-2024 take 1 tablet by mouth twice daily Pantoprazole 40 mg tablet,delayed release (DR/EC) Active 40 MG PO Twice daily June 27, 2024 11:17am Start: 01-06-2024 End: 06-27-2024 take 1 tablet by mouth once daily Pantoprazole 40 mg tablet,delayed release (DR/EC) Discontinued 40 MG PO Daily January 06, 2024 12:00am June 27, 2024 11:19am phenazopyridine hydrochloride 100 mg oral tablet (1 source) Start: 07-13-2024 End: 07-16-2024 take 1 tablet by mouth three times daily Pyridium 100 mg Tab 100 mg = 1 tab(s), Oral, TID, X 3 day(s), # 9 tab(s), Refills(s) 0, Pharmacy: [facility]/pharmacy #[id number], 160.1, cm, 06/26/24 14:41:00 EDT, Height/Length Dosing, 136.8, kg, 06/26/24 14:41:00 EDT, Weight Dosing Start Date: 07/13/24 Stop Date: 07/16/24 Status: Ordered Quantity: 9.0 Unit: tab(s) Repeat number: 1 Completed/Discontinued Medications Medication Drug Class(es) Dates Sig (Normalized) Sig (Original) betamethasone 0.5 mg/ml / clotrimazole 10 mg/ml topical cream (7 sources) Azole Antifungal, Corticosteroid Start: 03-31-2024 betamethasone-cl otrimazole Top 0.05%-1% Crm 15 gram Refill(s) 0 Start Date: 03/31/24 Status: Ordered Repeat number: 1 Start: 01-06-2024 Clotrimazole-B etamethasone 1-0.05 % cream Active 1 APPLIC TOPICAL Daily as needed for rash January 06, 2024 12:00am Start: 01-06-2024 Clotrimazole-B etamethasone 1-0.05 % cream Active APPLIC TOPICAL January 06, 2024 12:00am calcium carbonate 1500 mg / cholecalciferol 0.01 mg oral tablet (14 sources) Vitamin D Start: 01-06-2024 End: 06-27-2024 take 2 tablets by mouth once daily in the morning Calcium Carbonate-Vitamin D3 600 mg-10 mcg (400 unit) tablet Discontinued 2 TAB PO Every morning 180 June 27, 2024 11:57am June 27, 2024 12:27pm Start: 07-20-2023 End: 07-19-2024 take 2 tablets by mouth in the morning Calcium Carb-Cholecalciferol 600-10 MG-MCG tablet Take 2 tablets by mouth in the morning. 07/20/2023 07/19/2024 Active citric acid 75 mg/ml / magnesium oxide 21.9 mg/ml / picosulfate sodium 0.0625 mg/ml oral solution (3 sources) Calculi Dissolution Agent, Anti-coagulant Start: 01-06-2024 End: 02-14-2024 Sod Picosulf-Mag Ox-Citric Ac (Clenpiq) 10 mg-3.5 gram- 12 gram/160 mL solution Discontinued ML PO Twice daily January 06, 2024 12:00am February 14, 2024 12:05pm FreeTextSiml at 3pm, 160ml at 9pm the day prior to colonoscopy Orally BID; Note: Source Status: Start; Refills: 0; Qty: 1 Box; Provider: Musa May hyoscyamine sulfate 0.125 mg oral tablet (3 sources) Start: 01-06-2024 End: 02-14-2024 take 1 tablet by mouth four times daily Hyoscyamine Sulfate 0.125 mg tablet Discontinued 0.125 MG PO Four times daily January 06, 2024 12:00am February 14, 2024 12:04pm polyethylene glycol 3350 181021 mg / potassium chloride 2970 mg / sodium bicarbonate 6740 mg / sodium chloride 5860 mg / sodium sulfate 64520 mg powder for oral solution (1 source) Osmotic Laxative Start: 06-28-2024 End: 07-19-2024 Peg 3350-Electrolytes (Golytely) 236-22.74-6.74 -5.86 gram recon soln Discontinued 240 ML PO Q10M 4000 1 June 28, 2024 12:00am July 19, 2024 11:28am follow instructions given at office Sodium polystyrene sulfonate (5 sources) Start: 06-27-2024 End: 06-27-2024 take 15 g by mouth three times weekly Sodium Polystyrene Sulfonate powder Discontinued 15 GM PO 3 Times a week 150 June 27, 2024 11:56am June 27, 2024 1:04pm Start: 06-27-2024 take 15 g by mouth t hree times weekly Sodium Polystyrene Sulfonate powder Active 15 GM PO 3 Times a week 150 June 27, 2024 11:56am Start: 02-14-2024 End: 06-27-2024 take 15 g by mouth three times weekly Sodium Polystyrene Sulfonate powder Active 15 GM PO 3 Times a week 150 June 27, 2024 1:04pm traMADol hydrochloride 50 mg oral tablet (11 sources) Opioid Agonist Start: 08-09-2023 End: 06-27-2024 take 1 tablet by mouth twice daily as needed Tramadol 50 mg tablet Discontinued 50 MG PO Twice daily as needed January 06, 2024 12:00am June 27, 2024 11:19am Problems Active Problems Problem Classification Problem Date Documented Date Episodic/Chronic Calculus of urinary tract (11 sources) Kidney stone; Translations: [Calculus of kidney] Onset: 5 Episodic Cardiac dysrhythmias (20 sources) Supraventricular tachycardia; Translations: [Atrial fibrillation] Onset: 3 Chronic Chronic kidney disease (20 sources) Chronic kidney disease stage 4; Translations: [Chronic kidney disease, stage 4 (severe)] Onset: 4 01-06-2024 Chronic Chronic obstructive pulmonary disease and bronchiectasis (11 sources) Chronic obstructive lung disease; Translations: [Chronic obstructive pulmonary disease, unspecified] Onset: 5 11-25-2022 Chronic Conduction disorders (6 sources) Cardiac pacemaker in situ; Translations: [Presence of cardiac pacemaker] Onset: 4 02-14-2024 Chronic Congestive heart failure; nonhypertensive (3 sources) Acute combined systolic (congestive) and diastolic (congestive) heart failure; Translations: [Unspecified diastolic (congestive) heart failure] Onset: 2 Chronic Coronary atherosclerosis and other heart disease (11 sources) Coronary arteriosclerosis; Translations: [Atherosclerotic heart disease of [place] coronary artery without angina pectoris] Onset: 5 11-25-2022 Chronic Disorders of lipid metabolism (17 sources) Hyperlipidemia, unspecified; Translations: [Pure hypercholesterolemia, unspecified] Onset: 2 11-25-2022 Chronic Essential hypertension (16 sources) Hypertensive disorder; Translations: [Essential hypertension] Onset: 0 11-25-2022 Chronic Fluid and electrolyte disorders (18 sources) Hyperkalemia; Translations: [Hyperkalemia] Onset: 4 01-06-2024 Episodic Gastrointestinal hemorrhage (1 source) Hemorrhage of anus and rectum; Translations: [Hemorrhage of anus and rectum] Onset: 5 Episodic Genitourinary symptoms and ill-defined conditions (13 sources) Stress incontinence (female) (male); Translations: [Female stress incontinence] Onset: 5 Chronic Headache; including migraine (2 sources) Headache; Translations: [Nonintractable headache, unspecified chronicity pattern, unspecified headache type] 05-09-2024 Episodic Hypertension with complications and secondary hypertension (11 sources) Hypertensive heart disease with heart failure; Translations: [Chronic kidney disease due to hypertension] Onset: 2 01-06-2024 Chronic Osteoporosis (4 sources) Age-related osteoporosis without current pathological fracture; Translations: [AGE-REL OSTEOPOR W/O CURR PATH FX] Onset: 2 Chronic Other aftercare (9 sources) Long-term current use of aspirin; Translations: [medical terminologist (current) use of aspirin] Onset: 5 Episodic Other and unspecified benign neoplasm (11 sources) History of polyp of colon; Translations: [History of colon polyps] Onset: 5 11-25-2022 Episodic Other diseases of kidney and ureters (11 sources) Secondary hyperparathyroidism; Translations: [Secondary hyperparathyroidism of renal origin] Onset: 4 01-06-2024 Chronic Other diseases of kidney and ureters (3 sources) Secondary hyperparathyroidism of renal origin; Translations: [Secondary [...] unilateral] 06-20-2024 Chronic Other lower respiratory disease (11 sources) Multiple nodules of lung; Translations: [Other nonspecific abnormal finding of lung field] Onset: 5 11-25-2022 Episodic Other nutritional; endocrine; and metabolic disorders (11 sources) Morbid obesity; Translations: [Morbid (severe) obesity due to excess calories] Onset: 5 11-25-2022 Chronic Other nutritional; endocrine; and metabolic disorders (2 sources) Hypomagnesemia; Translations: [Hypomagnesemia] 02-14-2024 Chronic Other nutritional; endocrine; and metabolic disorders (2 sources) Hypomagnesemia; Translations: [Disorders of magnesium metabolism] 06-27-2024 Chronic Other nutritional; endocrine; and metabolic disorders (2 sources) Hyperuricemia; Translations: [Hyperuricemia without signs of inflammatory arthritis and tophaceous disease] 02-14-2024 Episodic Other nutritional; endocrine; and metabolic disorders (2 sources) Hyperuricemia without signs of inflammatory arthritis and tophaceous disease; Translations: [Other abnormal blood chemistry] 06-27-2024 Episodic Otitis media and related conditions (6 sources) Otitis media; Translations: [Unspecified nonsuppurative otitis media, right ear] 05-09-2024 Episodic Pulmonary heart disease (12 sources) Pulmonary hypertension; Translations: [Secondary pulmonary hypertension] Onset: 3 11-25-2022 Chronic Residual codes; unclassified (8 sources) Obstructive sleep apnea syndrome; Translations: [Obstructive sleep apnea (adult) (pediatric)] Onset: 3 05-05-2024 Chronic Residual codes; unclassified (11 sources) History of operative procedure on lumbar spinal structure; Translations: [Other specified postprocedural states] Onset: 5 03-20-2024 Episodic Screening and history of mental health and substance abuse codes (4 sources) Tobacco use and exposure - finding 11-25-2022 Chronic Screening and history of mental health and substance abuse codes (20 sources) Personal history of nicotine dependence; Translations: [H/O: Disorder] Onset: 2 Episodic Spondylosis; intervertebral disc disorders; other back problems (8 sources) Lumbosacral spondylosis without myelopathy; Translations: [Spondylosis without myelopathy or radiculopathy, lumbosacral region] Onset: 2 05-05-2024 Chronic Spondylosis; intervertebral disc disorders; other back problems (20 sources) Spinal stenosis, lumbar region with neurogenic claudication; Translations: [Radiculopathy, lumbar region] Onset: 2 Episodic Thyroid disorders (12 sources) Hypothyroidism, unspecified; Translations: [Hypothyroidism] Onset: 2 11-25-2022 Chronic Unclassified (3 sources) CONTACT W/AND (SUSP) EXPOS COVID-19; Translations: [CONTACT W/AND (SUSP) EXPOS COVID-19] Onset: 2 Unclassified (1 source) COUGH, UNSPECIFIED; Translations: [COUGH, UNSPECIFIED] Onset: 2 Unclassified (4 sources) Long-term current use of aspirin 03-31-2024 Unclassified (1 source) Vertebrogenic low back pain; Translations: [Vertebrogenic low back pain] Onset: 4 Unclassified (2 sources) Other persistent atrial fibrillation; Translations: [Other persistent atrial fibrillation] Onset: 3 Past or Other Problems Problem Classification Problem Date Documented Date Episodic/Chronic Abdominal pain (10 sources) Lower abdominal pain; Translations: [Lower abdominal pain, unspecified] Onset: 01-30-2022 05-05-2024 Episodic Cardiac dysrhythmias (17 sources) Palpitations; Translations: [Bradycardia] Onset: 01-14-2022 Episodic Conditions associated with dizziness or vertigo (8 sources) Lightheadedness; Translations: [Dizziness and giddiness] Onset: 07-27-2016 05-05-2024 Episodic Deficiency and other anemia (1 source) Anemia, unspecified; Translations: [ANEMIA UNSPECIFIED] Onset: 01-19-2022 Episodic E Codes: Cut/pierceb (1 source) Contact with other sharp object(s), not elsewhere classified, initial encounter; Translations: [[facility] OT SHRP OB NOT ELSW CLASS INI] Onset: 08-14-2021 Episodic Malaise and fatigue (8 sources) Fatigue; Translations: [Other fatigue] Onset: 07-27-2016 05-05-2024 Episodic Nonspecific chest pain (9 sources) Chest pain, unspecified; Translations: [Chest pain] Onset: 07-27-2016 05-05-2024 Episodic Open wounds of extremities (4 sources) Laceration without foreign body, right lower leg, initial encounter; Translations: [LACERATION W/O FB RT LOW LEG INIT] Onset: 08-12-2021 Episodic Other aftercare (1 source) Other terminal press operator (current) drug therapy; Translations: [[facility] COUNTER CLERK TRACTOR [employer]S CURRENT DRUG THERAPY] Onset: 08-14-2021 Episodic Other [...] Onset: 01-26-2022 Episodic Other lower respiratory disease (8 sources) Dyspnea; Translations: [Dyspnea, unspecified] Onset: 07-27-2016 [...] UTERUS] Onset: 08-14-2021 Episodic Residual codes; unclassified (8 sources) Edema; Translations: [Edema, unspecified] Onset: 07-27-2016 05-05-2024 Episodic Unclassified (1 source) CONTACT W/AND (SUSP) EXPOS COVID-19; Translations: [CONTACT W/AND (SUSP) EXPOS COVID-19] Onset: 10-28-2021 Unclassified (1 source) Vertebrogenic low back pain; Translations: [Vertebrogenic low back pain] Onset: 11-23-2023 Results Test Name Value Interpretation Reference Range Facility Pathology Request for Lab Co rpon 07-19-2024 Pathology Request for Lab [place] Normal [facility] Comment on above: Order Comment: IVANIA LI ECIMEN Result Comment: See report. Scanned copy available in EMR. PERFORMED BY: [place] [address] PATHOLOGIST MEDICAL OFFICE REPRESENTATIVE GENE BARRAGAN M.D. Performed By: #### P ATH TO [facility] #### [address] Main OR Intraoperative Recor don 07-14-2024 Main OR Intraoperative Record Main OR Intraoperative Record IntraOp Document Type FT Summary Primary Physician: NKROSETTA FELICIANO MD Finalized Date/Time: 07/14/24 10:37:22 Pt. Name: VERO SADLER./Sex: 1950 Female Med Rec #: [id number] Physician: ROSETTA MENDEZ MD Financial #: [id number] Pt. Type: A Room/Bed: [place] [address] Admit/Disch: 07/13/24 07:02:16 - 07/13/24 11:00:00 Institution: Case Times FT Entry 1 Patient Times In Room 07/13/24 08:50:00 Out Room 07/13/24 09:14:00 Procedure Times Start 07/13/24 09:02:00 Stop 07/13/24 09:07:00 Anesthesia Times Start 07/13/24 08:50:00 Stop 07/13/24 09:14:00 Last Modified By: Andrew Holly Ii 07/13/24 09:17:16 Case Attendance FT Entry 1 Entry 2 Entry 3 Case Attendee Tunde Nascimento MD, Camilla Goldman Role Performed Anesthesiologist Surgeon - Primary Scrub - Primary Product Tester Time In 07/13/24 08:50:00 07/13/24 08:50:00 07/13/24 08:50:00 Time Out 07/13/24 09:14:00 07/13/24 09:14:00 07/13/24 09:14:00 Procedure BULKAMID PROCEDURE(.) BULKAMID PROCEDURE(.) BULKAMID PROCEDURE(.) Comments dr. walden supervisor metal hanging Last Modified By: Andrew Holly Ii, Alfons Ii F Letrondo, Alfons Ii F 07/13/24 09:22:03 07/13/24 09:22:03 07/13/24 09:22:03 Entry 4 Case Attendee Andrew Holly Ii Role Performed Summer Clerk - Primary Time In 07/13/24 08:50:00 Time Out 07/13/24 09:14:00 Procedure BULKAMID PROCEDURE(.) Comments Last Modified By: Andrew Holly Ii 07/13/24 09:22:03 Perioperative Protocols FT Pre-Care Text: Implements protective measures prior to operative or invasive procedure, confirms identity before the operative or invasive procedure, verifies operative procedure, surgical site, and laterality Entry 1 Procedure(s) BULKAMID PROCEDURE(.) Patient Identity Birthday, ID Band Verified (select at Check, Patient least 2): Participation Consents / H and P Anesthesia Consent, Operative Site N/A Verified H&P, Surgery/Procedure Marking Verified Consent Surgical Site Yes Laterality Verified n/a Verified Procedure Verified Yes Correct Patient Yes Position Verified Availability Equipment, Medication Prep Dry No Verified (If Applicable) PreOp Antibiotic Yes Time Out Tunde Nascimento Given Participants BRYAN Segura MD, Jones SARGENT Sydney A, Andrew Holly Ii Time Out Complete 07/13/24 09:02:00 Outcomes Met? Yes Last Modified By: Andrew Holly Ii 07/13/24 09:18:09 Post-Care Text: The patient is free from signs and symptoms of injury caused by extraneous objects Allergy Information FT Pre-Care Text: Verifies allergies Entry 1 Allergies Reviewed? Yes Allergies Reviewed Self/Patient With Outcomes Met? Yes Last Modified By: Andrew Holly Ii 07/13/24 09:18:15 Post-Care Text: The patient received appropriate medication(s) safely administered during the perioperative period Surgical Procedures FT Entry 1 Procedure Description Procedure BULKAMID PROCEDURE Modifiers . Surgeon Description CYSTO WITH BULKAMID INJECTION Primary Procedure Yes Primary Surgeon BRYAN BELTRÁN, ROSETTA Start 07/13/24 09:02:00 Stop 07/13/24 09:07:00 Anesthesia Type General Surgical Service Anesthesia Wound Class 2 - Clean-Contaminated Last Modified By: Andrew Holly Ii 07/13/24 09:18:20 General Case Data FT Pre-Care Text: Classifies surgical wound, implements aseptic technique, initiates traffic control Entry 1 Case Information OR OR 1 FT Case Level Level 3 Wound Class 2 - Clean-Contaminated Specialty Anesthesia ASA Class 3 Preop Diagnosis STRESS INCONTINENCE Postop Same As Preop Yes Postop Diagnosis STRESS INCONTINENCE Outcomes Met? Yes Last Modified By: Andrew Holly Ii 07/13/24 09:18:25 Post-Care Text: The patient is free from signs and symptoms of infection Skin Assessment (Pre Procedure) FT Pre-Care Text: Implements protective measures to prevent skin/ tissue injury due to thermal or mechanical sources Evaluates for signs and symptoms of physical injury to skin and tissue Entry 1 Skin Integrity Intact, [place], Warm, & Skin Abnormality No Dry Outcomes Met? Yes Last Modified By: Andrew Holly Ii 07/13/24 09:18:32 Post-Care Text: The patient is free from signs and symptoms of injury caused by extraneous objects Patient Positioning FT Pre-Care Text: Identifies physical alterations that require additional precautions for procedure-specific positioning, verifies presence of prosthetics or corrective devices, positions the patient, evaluates the patient for signs and symptoms of injury as a result of positioning Entry 1 Procedure BULKAMID PROCEDURE(.) Body Position Low Lithotomy Feet Uncrossed? Yes Left Arm Position Resting at Side Right Arm Position Resting at Side Left Leg Position Secured in Stirrup Right Leg Position Secured in Stirrup Posit (more content not included)... Normal [facility] Discharge Instructionson Discharge Instructions Discharge Instruc tions VERO SADLER :1950 Visit Date:07/13/2024 Inpatient Discharge Instructions Your Care Team Admitting Physician - ROSETTA MENDEZ MD Referring Physician - ROSETTA MENDEZ MD Reason for Your Visit STRESS INCONTINENCE What to do next Instructions From Your Doctor Event Name Event Result Discharge Instructions Freetext Please void before dc F/U in 1 month in office Pain control w/ tylenol, motrin Hydrate w/ at least 2L/day Ambulate Discharge Activity Ambulate as tolerated, Arrange for a responsible adult supervision for 24 hours, Expect mild pain, Expect minimal amount of drainage and/or bleeding Discharge Restrictions No driving for 24 hrs Discharge Diet(s) Regular Call Your Doctor For Temperature above 101.5 degrees, Redness, swelling, or pus at operative site, Severe pain at the operative site Discharge Instructions Discharge Instructions New Follow Up Appointments after Discharge Follow Up with ROSETTA MENDEZ When: Comments: 1 month Medications What How Much When Instructions Next Dose New cephalexin (Keflex 500 mg Cap) 1 Capsules By Mouth Every 12 hours Duration: 5 Days Pickup at [facility]/pharmacy #[id number] New phenazopyridine (Pyridium 100 mg Tab) 1 Tablets By Mouth 3 times a day Duration: 3 Days Pickup at [facility]/pharmacy #[id number] Unchanged albuterol (Albuterol (Eqv-ProAir HFA)) 2 Puffs Inhalation Every 4 hours as needed for Shortness of breath or wheezing Unchanged albuterol (albuterol 0.083% Inh Viviana 3 mL) 3 Milliliter Nebulized inhalation (aerosol) 4 times a day as needed for Shortness of breath or wheezing Unchanged aspirin (aspirin 81 mg Oral EC Tab) 1 Tablets By Mouth Every day Unchanged betamethasone-clotrimaz ole topical (betamethasone-clotrima zole Top 0.05%-1% Crm 15 gram) Unchanged bumetanide (bumetanide 1 mg Tab) 1 Tablets By Mouth Every day Unchanged carvedilol (carvedilol 25 mg Tab) 0.5 Tablets By Mouth 2 times a day Unchanged hydrALAZINE (hydrALAZINE 100 mg oral tablet) 1 Tablets By Mouth 3 times a day Unchanged levothyroxine (levothyroxine 88 mcg (0.088 mg) oral capsule) 1 Capsules By Mouth Every day Unchanged liothyronine (Cytomel 25 mcg Tab) 1.5 Tablets By Mouth Every day Unchanged lisinopril (lisinopril 10 mg Tab) 1 Tablets By Mouth Every day Unchanged lovastatin (lovastatin 20 mg Tab) 1 Tablets By Mouth Every day Unchanged magnesium sulfate Unchanged pantoprazole (Pantoprazole [address] Tab) 1 Tablets By Mouth 2 times a day Pharmacy Information [facility]/pharmacy #[id number]: [address], [place] [id number] [phone] Allergies Adhesive Bandage (Hives) Education Materials Common Emergency Awareness Tips IS IT A STROKE? Act FAST and Check for these signs: FACE Does the face look uneven? ARM Does one arm drift down? SPEECH Does their speech sound strange? TIME Call at any sign of stroke Heart Attack Signs Chest discomfort: Most heart attacks involve discomfort in the center of the chest and lasts more than a few minutes, or goes away and comes back. It can feel like uncomfortable pressure, squeezing, fullness or pain. Discomfort in upper body: Symptoms can include pain or discomfort in one or both arms, back, neck, jaw or stomach. Shortness of breath: With or without discomfort. Other signs: Breaking out in a cold sweat, nausea, or lightheaded. Remember, MINUTES DO MATTER. If you experience any of these heart attack warning signs, call to get immediate medical attention! Patient Survey You may receive a survey in the mail asking you about your stay with us. We want to hear from you, please share your experience with us by completing your survey. Thank you for choosing [facility]. Myra Award Nomination The MYRA (Diseases Attacking the Immune SYstem) Award is an international recognition program that honors and celebrates the skillful, compassionate care nurses provide every day. Anyone who experiences or observes amazing care being provided by a nurse is encouraged to submit a nomination. To nominate your nurse, use your smart phone to scan the QR code below. Patient Portal You may access all of your results and other medical record information on our secure patient portal. If you are not signed up for this yet, please contact [facility] at [phone] to get signed up today. Patient Name: VERO SADLER I have received this information and my questions have been answered. Patient/Pharmacist Aide Name: Patient/Pharmacist Aide Signature: Relationship to Patient: Witness Name/Signature: Date: _ (more content not included)... Normal [facility] Comment on above: Result Comment: Elec tronically Signed By: Virgie BRODY, Patricia Obrien.shyam\Date and Time Signed: 07/13/24 10:41 EDT Main OR PACU I Recordon 05 Main OR PACU I Record Main OR PACU I Rec ord PACU Phase I Document Type FT Summary Primary Physician: ROSETTA MENDEZ MD Finalized Date/Time: 07/13/24 09:53:55 Pt. Name: SADLERVERO/Sex: 1950 Female Med Rec #: [id number] Physician: ROSETTA MENDEZ MD Financial #: [id number] Pt. Type: A Room/Bed: [place] [address] Admit/Disch: 07/13/24 07:02:16 - Institution: Case Times PACU I FT Pre-Care Text: Identifies barriers to communication and implements measures to provide psychological support Develops individualized plan of care, and ensures continuity of care Maintains patient's dignity and privacy, and maintains patient confidentiality Identifies and reports philosophical, cultural, and spiritual beliefs and values Identifies individual values and wishes concerning care Implements aseptic technique, and administers prescribed antibiotic therapy and immunizing agents as ordered Evaluates postoperative tissue perfusion Implements thermoregulation measures, and monitors body temperature Evaluates postoperative respiratory status Evaluates postoperative cardiac status Evaluates postoperative neurological status Assesses pain control, collaborated in initiating patient-controlled analgesia and implements alternative methods of pain control Verifies allergies, administers prescribed medications and solutions, evaluates response to medications Entry 1 In PACU I 07/13/24 09:15:00 Discharge from PACU 07/13/24 09:45:00 I Outcomes Met? Yes Last Modified By: Orin Richmond RN 07/13/24 09:42:11 Post-Care Text: The patient demonstrates knowledge of the expected response to the operative or invasive procedure The patient's care is consistent with the individualized perioperative plan of care The patient's right to privacy is maintained The patient's value system, lifestyle, ethnicity, and culture are considered, respected, and incorporated into the perioperative plan of care The patient participates in decisions affecting his or her perioperative plan of care The patient is free from signs and symptoms of infection The patient has wound/tissue perfusion consistent with or improved from baseline levels established preoperatively The patient is at or returning to normothermia at the conclusion of the immediate postoperative period The patient's respiratory function is consistent with or improved from baseline levels established preoperatively The patient's cardiovascular status is consistent with or improved from baseline levels established preoperatively The patient's cardiovascular status is consistent with or improved from baseline levels established preoperatively The patient demonstrates and/or reports adequate pain control throughout the perioperative period The patient received appropriate medication(s), safely administered during the perioperative period Acuity Level PACU I FT Entry 1 Start Time 07/13/24 09:15:00 Stop Time 07/13/24 09:45:00 Acuity Level Acuity Level I Last Modified By: Orin Richmond RN 07/13/24 09:42:18 Finalized By: Orin Richmond RN Document Signatures Signed By: Orin Richmond RN 07/13/24 09:53 Normal [facility] Main OR PACU II Recordon Main OR PACU II Record Main OR PACU II R ecord PACU Phase II Document Type FT Summary Primary Physician: ROSETTA MENDEZ MD Finalized Date/Time: 07/13/24 15:25:20 Pt. Name: VERO SADLER Tri/Sex: 1950 Female Med Rec #: [id number] Physician: ROSETTA MENDEZ MD Financial #: [id number] Pt. Type: A Room/Bed: AS18/ Admit/Disch: 07/13/24 07:02:16 - 07/13/24 11:00:00 Institution: Case Times PACU II FT Pre-Care Text: Identifies barriers to communication and implements measures to provide psychological support and determines knowledge level Develops individualized plan of care, and ensures continuity of care Maintains patient's dignity and privacy, and maintains patient confidentiality Identifies and reports philosophical, cultural, and spiritual beliefs and values Identifies individual values and wishes concerning care administers prescribed antibiotic therapy and immunizing agents as ordered, Evaluates postoperative tissue perfusion Implements thermoregulation measures, and monitors body temperature Evaluates postoperative respiratory status Evaluates postoperative cardiac status Evaluates postoperative neurological status Assesses pain control, collaborated in initiating patient-controlled analgesia and implements alternative methods of pain control Verifies allergies, administers prescribed medications and solutions, evaluates response to medications Entry 1 In PACU II 07/13/24 09:50:00 Discharge from PACU 07/13/24 11:00:00 II Outcomes Met? Yes Last Modified By: Patricia Garvin RN 07/13/24 15:25:18 Post-Care Text: The patient demonstrates knowledge of the expected response to the operative or invasive procedure The patient's care is consistent with the individualized perioperative plan of care The patient's right to privacy is maintained The patient's value system, lifestyle, ethnicity, and culture are considered, respected, and incorporated into the perioperative plan of care The patient participates in decisions affecting his or her perioperative plan of care. The patient is free from signs and symptoms of infection The patient has wound/tissue perfusion consistent with or improved from baseline levels established preoperatively The patient is at or returning to normothermia at the conclusion of the immediate postoperative period The patient's respiratory function is consistent with or improved from baseline levels established preoperatively The patient's cardiovascular status is consistent with or improved from baseline levels established preoperatively The patient's neurological status is consistent with or improved from baseline levels established preoperatively The patient demonstrates and/or reports adequate pain control throughout the perioperative period The patient received appropriate medication(s), safely administered during the perioperative period Finalized By: Patricia Garvin RN Document Signatures Signed By: Patricia Garvin RN 07/13/24 15:25 [facility] Main OR Preoperative Recordo n 07-13-2024 Main OR Preoperative Record Main OR Preoperative Record PreOp Document Type FT Summary Primary Physician: ROSETTA MENDEZ MD Finalized Date/Time: 07/13/24 09:04:45 Pt. Name: VERO SADLER/Sex: 1950 Female Med Rec #: [id number] Physician: ROSETTA MENDEZ MD Financial #: [id number] Pt. Type: A Room/Bed: [facility] Admit/Disch: 07/13/24 07:02:16 - Institution: Case Times PreOp FT Pre-Care Text: Verifies consent for planned procedure, identifies individual values and wishes concerning care, includes family members in perioperative teaching Entry 1 Patient Times. In Pre Surgery 07/13/24 07:10:00 Out Pre Surgery 07/13/24 08:49:00 Outcomes Met? Yes Last Modified By: Andrew Holly Ii 07/13/24 09:04:43 Post-Care Text: The patient participates in decisions affecting his or her perioperative plan of care Finalized By: Andrew Holly Ii Document Signatures Signed By: Andrew Holly Ii 07/13/24 09:04 Normal [facility] Operative Reporton Operative Report Operative Report Patient: VERO SADLER Age: 74 years Sex: Female : 1950 Associated Diagnoses: None Author: ROSETTA MENDEZ MD Procedure SURGEON: Rosetta Mendez MD PREOPERATIVE DIAGNOSIS: Stress urinary incontinence with , intrinsic sphincter deficiency POSTOPERATIVE DIAGNOSIS: Same PROCEDURE: Cystoscopy, injection of urethral bulking agent CPT 89310 FINDINGS: Urethra injected at 4 units packed to create excellent coaptation at conclusion of procedure ANESTHESIA: MAC sedation INTRAVENOUS FLUIDS: Fluids per anesthesia records ESTIMATED BLOOD LOSS: 0cc TUBES AND DRAINS: None SPECIMENS: None COMPLICATIONS: None INDICATIONS FOR PROCEDURE: Patient is a 74-year-old female with prior bladder sling, recurrent stress urinary incontinence, urgency incontinence presenting for the aforementioned procedure. H&P was reviewed, informed consent was obtained, patient was the risk, benefits, alternatives of the procedure and wished to proceed. OPERATIVE DETAIL: Patient was brought to the operative suite and placed on continuous pulse oximetry and cardiac monitoring by anesthesia. IV antibiotics including 3 g of Ancef was administered. She was then placed in the dorsolithotomy position and prepped and draped in normal sterile fashion. Timeout was performed confirming patient, procedure, side, all in the room agreed. At the start of the procedure, anaesthetic gel was added to the end rotatable Bulkamid sheath and the water inflow was adjusted to produce an adequate stream. The Bulkamid Needle was then placed ??? of the way into the needle channel of the rotatable sheath and the entire Bulkamid system was then advanced into the urethra until the bladder is visualised and inspected. The Bulkamid needle was then advanced into the needle channel on the rotatable sheath until the tip of the sheath is adjacent to the bladder neck. The sheath was then rotated to the 7 o???clock position. The needed was then extend into the bladder until the 2cm janes on the needle is visible. The Bulkamid system was then retracted until the tip of the needle was resting on the bladder neck. The needle was then retracted into the sheath and approximately 1.5cm from the bladder neck the Bulkamid system was pressed parallel against the urethral wall and the needle is then advanced into the submucosal tissue ensuring that the bevel of the needle was facing towards the lumen. The needle was advanced approximately 0.5cm, and the Bulkamid hydrogel was then injected until the Bulkamid cushion was visible and reached the midline of the urethral lumen. The needle was then retracted back into the rotatable sheath, and rotated to the next injection site. Subsequent injections were preformed at 5 o???clock, 2 o???clock and 10 o???clock all along the same plane as the original injection until all (4) cushions met at the midline of the urethral lumen. 2mls Total of Bulkamid Hydrogel was used. Approximately 500cc of fluid was left in the bladder and upon completion, the patient emptied her bladder without issues. The procedure was well tolerated and EBL was minimal. Patient was given instruction to contact the office if she had any difficulty urinating and was consulted about the potential of a top up procedure if the desired effect was not achieved. Prophylactic antibiotics were prescribed, and a follow up appointment was scheduled to evaluate improvement. PLAN: F/U in 6 WEEKS. Needs to void before dc Normal [facility] Comment on above: Result Comment: Elec tronically Signed By: BRYAN BELTRÁN, ROSETTA\.shyam\Date and Time Signed: 07/13/24 10:17 EDT BMPon 06-26-2024 Anion gap [Moles/Vol] 11 mmol/L Normal 6-16 [facility] Comment on above: Performed By: #### 2 [id number] #### [facility] [address] [place] [address] Calcium [Mass/Vol] 9.1 mg/dL Normal 8.9-11.1 [facility] Comment on above: Performed By: #### 2 [id number] #### [facility] [address] [place] [address] Chloride [Moles/Vol] 107 mmol/L Normal 101-111 [facility] Comment on above: Performed By: #### 2 [id number] #### [facility] [address] [place] [address] CO2 [Moles/Vol] 26 mmol/L Normal 21-31 [facility] Comment on above: Performed By: #### 2 [id number] #### [facility] [address] [place] [address] Creatinine [Mass/Vol] 1.6 mg/dL High 0.5-1.3 [facility] Comment on above: Performed By: #### 2 [id number] #### [facility] [address] [place] [address] Glucose [Mass/Vol] 91 mg/dL Normal 55-199 [facility] Comment on above: Performed By: #### 2 [id number] #### [facility] [address] [place] [address] Potassium [Moles/Vol] 4.7 mmol/L Normal 3.5-5.3 [facility] Comment on above: Performed By: #### 2 [id number] #### [facility] [address] [place] [address] Sodium [Moles/Vol] 139 mmol/L Normal 135-145 [facility] Comment on above: Performed By: #### 2 [id number] #### [facility] [address] [place] [address] Urea nitrogen [Mass/Vol] 24 mg/dL High 5-21 [facility] Comment on above: Performed By: #### 2 [id number] #### [facility] [address] [place] [address] Urea nitrogen/Creatinine [Mass ratio] 15 No Units Normal 10-20 [facility] Comment on above: Performed By: #### 2 [id number] #### [facility] [address] [place] [address] CBC w/ Auto Diffon 5 Basophils/100 WBC (Bld) 1.2 % Normal 0.0-2.0 [facility] Comment on above: Performed By: #### 2 [id number] #### [facility] [address] [place] [address] Basophils/Leukocytes Auto (Bld) [Pure # fraction] 0.1 E9/L Normal 0.0-0.2 [facility] Comment on above: Performed By: #### 2 [id number] #### [facility] [address] [place] [address] Eosinophils (Bld) [#/Vol] 0.1 E9/L Normal 0.0-0.5 [facility] Comment on above: Performed By: #### 2 [id number] #### [facility] [address] [place] [address] Eosinophils/100 WBC (Bld) 1.6 % Normal 0.0-8.0 [facility] Comment on above: Performed By: #### 2 [id number] #### [facility] [address] [place] [address] Erythrocyte distribution width (RBC) [Ratio] 14.6 % High 10.9-14.2 [facility] Comment on above: Performed By: #### 2 [id number] #### [facility] [address] [place] [address] Hematocrit (Bld) [Volume fraction] 34.0 % Normal 34.0-46.0 [facility] Comment on above: Performed By: #### 2 [id number] #### [facility] [address] [place] [address] Hemoglobin (Bld) [Mass/Vol] 11.2 g/dL Low 12.0-16.0 [facility] Comment on above: Performed By: #### 2 [id number] #### [facility] [address] [place] [address] Lymphocytes (Bld) [#/Vol] 1.2 E9/L Normal 1.0-4.0 [facility] Comment on above: Performed By: #### 2 [id number] #### [facility] [address] [place] [address] Lymphocytes/100 WBC (Bld) 15.1 % Normal 14.0-50.0 [facility] Comment on above: Performed By: #### 2 [id number] #### [facility] [address] [place] [address] MCH (RBC) [Entitic mass] 29.3 pg Normal 27.0-34.0 [facility] Comment on above: Performed By: #### 2 [id number] #### [facility] [address] [place] [address] MCHC (RBC) [Mass/Vol] 32.9 g/dL Normal 31.4-36.0 [facility] Comment on above: Performed By: #### 2 [id number] #### [facility] [address] [place] [address] MCV (RBC) [Entitic vol] 89.0 fL Normal 80.0-100.0 [facility] Comment on above: Performed By: #### 2 [id number] #### [facility] [address] [place] [address] Monocytes (Bld) [#/Vol] 0.9 E9/L Normal 0.2-1.0 [facility] Comment on above: Performed By: #### 2 [id number] #### [facility] [address] [place] [address] Neutrophils (Bld) [#/Vol] 5.3 E9/L Normal 2.0-7.5 [facility] Comment on above: Performed By: #### 2 [id number] #### [facility] [address] [place] [address] Neutrophils/100 WBC (Bld) 69.9 % Normal 36.0-75.0 [facility] Comment on above: Performed By: #### 2 [id number] #### [facility] [address] [place] [address] Platelet 241.0 E9/L Normal 150.0-500.0 [facility] Comment on above: Performed By: #### 2 [id number] #### [facility] [address] [place] [address] Platelet mean volume (Bld) [Entitic vol] 7.6 fL Normal 6.4-10.8 [facility] Comment on above: Performed By: #### 2 [id number] #### [facility] [address] [place] [address] RBC (Bld) [#/Vol] 3.8 E12/L Low 4.3-5.9 [facility] Comment on above: Performed By: #### 2 [id number] #### [facility] [address] [place] [address] WBC corrected for nucl RBC Auto (Bld) [#/Vol] 7.6 E9/L Normal 4.0-11.0 [facility] Comment on above: Performed By: #### 2 [id number] #### [facility] [address] [place] [address] [facility] APTTon 06-26-2024 aPTT Coag (Bld) [Time] 29.3 s NO [facility] CHEMISTRYOrdered By: SYSTEM SYSTEM on 06-26-2024 Anion gap [Moles/Vol] 11 mmol/L Normal 6 - 16 mEq/L [facility] Calcium [Mass/Vol] 9.1 mg/dL Normal 8.9 - 11. 1 mg/dL [facility] Chloride [Moles/Vol] 107 mmol/L Normal 101 - 1 11 mmol/L [facility] CO2 [Moles/Vol] 26 mmol/L Normal 21 - 31 mmol/L [facility] Creatinine [Mass/Vol] 1.6 mg/dL High 0.5 - 1.3 mg/dL [facility] eGFR 34 mL/min/1.73 m2 Low >=59mL/min / 1.73 m2 [facility] Glucose [Mass/Vol] 91 mg/dL Normal 55 - 199 mg/dL [facility] Potassium [Moles/Vol] 4.7 mmol/L Normal 3.5 - 5.3 mmol/L [facility] Sodium [Moles/Vol] 139 mmol/L Normal 135 - 145 mmol/L [facility] Urea nitrogen [Mass/Vol] 24 mg/dL High 5 - 21 mg/dL [facility] Urea nitrogen/Creatinine [Mass ratio] 15 mg/mg Normal 10 - 20 [facility] COAGULATIONOrdered By: Jennifer Gross on 06-26-2024 aPTT Coag (PPP) [Time] 34.6 s Normal 25.1 - 36.5 second(s) [facility] [facility] Comment on above: Interpretive Data: Pedro gaytan 15 days - 4 weeks 1 - 5 months 6 - 11 months 1 - 5 years 6 - 10 years 11 - 17 years PTT Mean: 35.4 (27.6-45.6) Mean: 33.5 (24.8-40.7) Mean: 32.4 (25.1-40.7) Mean: 31.6 (24.0-39.2) Mean: 31.6 (26.9-38.7) Mean: 31.0 (24.6-38.4) Pediatric Reference ranges were obtained from a study by Rene Collier et al. prepared from 1437 samples obtained at 7 different centers using the same coagulation reagent and instrumentation as [facility] Currently there are no coagulation studies available worldwide for children to 14 days, and no normal ranges. Heparin therapeutic range (represented by Anti-Factor Xa activity of 0.2 - 0.4 U/mL) corresponds to PTT of 56.6 - 109.0 sec. INR Coag (PPP) [Relative time] 1.16 {INR} Invalid Interpretation Code [facility] Auto Coag Comment on above: Interpretive Data: I NR results are specifically intended to assess patients stabilized on long-term Anticoagulation therapy suggested INR s Less Intensive Anticoagulation 2.0 3.0 Conventional Range 3.0 4.5 PT Coag (PPP) [Time] 13.0 s High 9.4 - 1 2.5 second(s) [facility] Comment on above: Interpretive Data: 1 5 days - 4 weeks 1 - 5 months 6 -11 months 1 5 years 6 10 years 11 -17 years Mean: 11.2 (9.5 12.6) Mean: 11.0 (9.7 12.8) Mean: 11.0 (9.8 13.0) Mean: 11.3 (9.9 13.4) Mean: 11.7 (10.0 14.6) Mean: 11.8 (10.0 - 14.1) Pediatric Reference ranges were obtained from a study by Rene Collier et al. prepared from 1437 samples obtained at 7 different centers using the same coagulation reagent and instrumentation as [facility]. Currently there are no coagulation studies available worldwide for children to 14 days, and no normal ranges. HEMATOLOGYOrdered By: SYSTEM SYSTEM on 06-26-2024 Basophils/100 WBC (Bld) 1.2 % Normal 0.0 - 2.0 % Remisol Heme Basophils/Leukocytes Auto (Bld) [Pure # fraction] 0.1 E9/L Normal 0.0 - 0.2 E9/L [facility] Eosinophils (Bld) [#/Vol] 0.1 E9/L Normal 0.0 - 0.5 E9/L [facility]e Eosinophils/100 WBC (Bld) 1.6 % Normal 0.0 - 8.0 % [facility] Erythrocyte distribution width (RBC) [Ratio] 14.6 % High 10.9 - 14.2 % [facility] Hematocrit (Bld) [Volume fraction] 34.0 % Normal 34.0 - 46.0 % [facility] Hemoglobin (Bld) [Mass/Vol] 11.2 g/dL Low 12.0 - 16.0 gm/dL [facility] Lymphocytes (Bld) [#/Vol] 1.2 E9/L Normal 1.0 - 4.0 E9/L [facility] Lymphocytes/100 WBC (Bld) 15.1 % Normal 14.0 - 50.0 % [facility] MCH (RBC) [Entitic mass] 29.3 pg Normal 27.0 - 34.0 pg [facility]e MCHC (RBC) [Mass/Vol] 32.9 g/dL Normal 31.4 - 36.0 gm/dL [facility] MCV (RBC) [Entitic vol] 89.0 fL Normal 80.0 - 100.0 fL [facility] Monocytes (Bld) [#/Vol] 0.9 E9/L Normal 0.2 - 1.0 E9/L [facility] Monocytes/100 WBC (Bld) 12.2 % Normal 4.0 - 14.0 % [facility] Neutrophils (Bld) [#/Vol] 5.3 E9/L Normal 2.0 - 7.5 E9/L [facility] Neutrophils/100 WBC (Bld) 69.9 % Normal 36.0 - 75.0 % [facility] Platelet 241.0 E9/L Normal 150.0 - 500.0 E9/L [facility] Platelet mean volume (Bld) [Entitic vol] 7.6 fL Normal 6.4 - 10.8 fL [facility] RBC (Bld) [#/Vol] 3.8 E12/L Low 4.3 - 5.9 E12/L [facility] WBC corrected for nucl RBC Auto (Bld) [#/Vol] 7.6 E9/L Normal 4.0 - 11.0 E9/L [facility] No Panel Informationon 06-26 [facility] PT & PTTon 06-26-2024 aPTT Coag (PPP) [Time] 34.6 second(s) Normal 25.1-36.5 [facility] Comment on above: Result Comment: Para meter 15 days - 4 weeks 1 - 5 months 6 - 11 months 1 - 5 years 6 - 10 years 11 - 17 years PTT Mean: 35.4 (27.6-45.6) Mean: 33.5 (24.8-40.7) Mean: 32.4 (25.1-40.7) Mean: 31.6 (24.0-39.2) Mean: 31.6 (26.9-38.7) Mean: 31.0 (24.6-38.4) Pediatric Reference ranges were obtained from a study by Rene Collier et al. prepared from 1437 samples obtained at 7 different centers using the same coagulation reagent and instrumentation as [facility]. Currently there are no coagulation studies available worldwide for children to 14 days, and no normal ranges. Heparin therapeutic range (represented by Anti-Factor Xa activity of 0.2 - 0.4 U/mL) corresponds to PTT of 56.6 - 109.0 sec. Performed By: #### 1 [id number] #### [facility] [address] [place] [address] INR Coag (PPP) [Relative time] 1.16 {INR} Invalid Interpretation Code [facility] Comment on above: Result Comment: INR results are specifically intended to assess patients stabilized on long-term Anticoagulation therapy suggested INR???s ???Less Intensive Anticoagulation??? 2.0 ??? 3.0 Conventional Range 3.0 ??? 4.5 Performed By: #### 1 [id number] #### [facility] [address] [place] [address] PT Coag (PPP) [Time] 13.0 second(s) High 9.4-12.5 [facility] Comment on above: Result Comment: 15 d ays - 4 weeks 1 - 5 months 6 -11 months 1 ??? 5 years 6 ??? 10 years 11 -17 years Mean: 11.2 (9.5 ??? 12.6) Mean: 11.0 (9.7 ??? 12.8) Mean: 11.0 (9.8 ??? 13.0) Mean: 11.3 (9.9 ??? 13.4) Mean: 11.7 (10.0 ??? 14.6) Mean: 11.8 (10.0 - 14.1) Pediatric Reference ranges were obtained from a study by Rene Collier et al. prepared from 1437 samples obtained at 7 different centers using the same coagulation reagent and instrumentation as [facility]. Currently there are no coagulation studies available worldwide for children to 14 days, and no normal ranges. Performed By: #### 1 [id number] #### [facility] [address] [place] [address] SRMCOH PROTHROMBIN TIME INR W/O COUMon 06-26-2024 PT Coag (PPP) [Time] 11.4 s [facility] TB INR 1.08 [facility] Comment on above: DESIRED INR: 2.0-3.0 CONDITIONS NOT LISTED BELOW 2.5-3.5 FOR PROSTHETIC HEART VALVE REPLACEMENT 2.5-3.5 RECURRENT THROMBOSIS UA with Cult Rflxon 06-27-19 25 Bilirubin Ql (U) Negative Normal Negative [facility] Comment on above: Performed By: #### 4 [id number] #### [facility] [address] [place] [address] Clarity (U) Clear Normal Clear [facility] Comment on above: Performed By: #### 4 [id number] #### [facility] [address] [place] [address] Color (U) Yellow Normal Yellow [facility] Comment on above: Result Comment: Micr oscopic readings are only performed on those samples that meet specific criteria set forth by [facility]. Performed By: #### 4 [id number] #### [facility] [address] [place] [address] Glucose Ql (U) Negative Normal Negative [facility] Comment on above: Performed By: #### 4 [id number] #### [facility] [address] [place] [address] Hemoglobin Auto test strip (U) [Mass/Vol] Negative Normal Negative [facility] Comment on above: Performed By: #### 4 [id number] #### [facility] [address] [place] [address] Ketones Auto test strip Ql (U) Negative Normal Negative [facility] Comment on above: Performed By: #### 4 [id number] #### [facility] [address] [place] [address] Leukocyte esterase Auto test strip Ql (U) Negative Normal Negative [facility] Comment on above: Performed By: #### 4 [id number] #### [facility] [address] [place] [address] Nitrite Auto test strip Ql (U) Negative Normal Negative [facility] Comment on above: Performed By: #### 4 [id number] #### [facility] [address] [place] [address] pH (U) 5.0 [pH] Invalid Interpretation Code 5.0-9.0 [facility] Comment on above: Performed By: #### 4 [id number] #### [facility] [address] [place] [address] Protein Ql (U) Trace Abnormal Negative [facility] Comment on above: Performed By: #### 4 [id number] #### [facility] [address] [place] [address] Specific gravity (U) [Rel density] 1.016 Invalid Interpretation Code 1.005-1.030 [facility] Comment on above: Performed By: #### 4 [id number] #### [facility] [address] [place] [id number] Urobilinogen (U) [Mass/Vol] Negative Normal Negative [facility] Comment on above: Performed By: #### 4 [id number] #### [facility] [address] [place] [id number] Type of Urine collection method Clean Catch Normal [facility] Comment on above: Performed By: #### 4 [id number] #### [facility] [address] [place] [id number] URINALYSISOrdered By: SYSTEM SYSTEM on 06-26-2024 Bilirubin Ql (U) Negative Normal Negativemg/ dL [facility] UA Auto SS Clarity (U) Clear (06/26/24 1:56 PM) Normal Clear [facility] UA Auto SS Color (U) Yellow 1 (06/26/24 1:56 PM) Normal Yellow [facility] UA Auto SS Comment on above: Interpretive Data: M icroscopic readings are only performed on those samples that meet specific criteria set forth by [facility]. Glucose Ql (U) Negative Normal Negativemg/ dL [facility] UA Auto SS Hemoglobin Auto test strip (U) [Mass/Vol] Negative Normal Negativemg/ dL [facility] UA Auto SS Ketones Auto test strip Ql (U) Negative Normal Negativemg/ dL [facility] UA Auto SS Leukocyte esterase Auto test strip Ql (U) Negative Normal NegativeLeu /uL [facility] UA Auto SS Nitrite Auto test strip Ql (U) Negative Normal Negativemg/ dL [facility] UA Auto SS pH (U) 5.0 *NA* (06/26/24 1:56 PM) Invalid Interpretation Code 5.0 - 9.0 [facility] UA Auto SS Protein Ql (U) Trace mg/dL Invalid Interpretation Code Negativemg/ dL [facility] UA Auto SS Specific gravity (U) [Rel density] 1.016 *NA* (06/26/24 1:56 PM) Invalid Interpretation Code 1.005 - 1.030 [facility] UA Auto SS Urobilinogen (U) [Mass/Vol] Negative Normal Negativemg/ dL [facility] UA Auto SS URINALYSISOrdered By: Grover Roberts on 06-26-2024 UA Spec Desc Clean Catch (06/26/24 1:56 PM) Normal [facility] UA Auto SS eGFRon 06-26-2024 eGFR 34 mL/min/1.73 m2 Low >=59 [facility] Comment on above: Performed By: #### 1 [id number] #### [facility] [address] [place] [address] Albumin [Mass/volume] in Ser um or Plasmaon 06-20-2024 Albumin [Mass/Vol] Albumin [Mass/volume ] in Serum or Plasma 2.9-4.4 [facility] IgA [Mass/volume] in Serum o r Plasmaon 06-20-2024 IgA [Mass/Vol] IgA [Mass/volume] in Serum or Plasma 64-422 [facility] IgG [Mass/volume] in Serum o r Plasmaon 06-20-2024 IgG [Mass/Vol] IgG [Mass/volume] in Serum or Plasma [phone] [facility] IgM [Mass/volume] in Serum o r Plasmaon 06-20-2024 IgM [Mass/Vol] IgM [Mass/volume] in Serum or Plasma 26-217 [facility] Immunofixation for Urineon 0 06-20-2024 Interpretation Immunofixation (U) [Interp] Immunofixation for Urine . [facility] Comment on above: No monoclonality det ected.Performed at: - [facility] [id number] Director: Jozef Mdeina PhD, Phone: [phone] Immunoglobulin light chains. kappa.free [Mass/volume] in Serumon 06-20-2024 Immunoglobulin light chains.kappa.free (S) [Mass/Vol] Immunoglobulin light chains.kappa.free [Mass/volume] in Serum Abnormal 3.3-19.4 [facility] Immunoglobulin light chains. kappa.free/Immunoglobulin light chains.lambda.free [Alexandra 06-20-2024 Immunoglobulin light chains.kappa.free/Immun oglobulin light chains.lambda.free (S) [Mass ratio] Immunoglobulin light chains.kappa.free/Immun oglobulin light chains.lambda.free [Mass Abnormal 0.26-1.65 [facility] Comment on above: Performed at: [facility] [address] [id number] Director: Jozef Medina PhD, Phone: [phone] Immunoglobulin light chains. lambda.free [Mass/volume] in Serum or Plasmaon 06-20-2024 Immunoglobulin light chains.lambda.free [Mass/Vol] Immunoglobulin light chains.lambda.free [Mass/volume] in Serum or Plasma Abnormal 5.7-26.3 [facility] Iron binding capacity [Mass/ volume] in Serum or Plasmaon 06-20-2024 Iron binding capacity [Mass/Vol] Iron binding capacity [Mass/volume] in Serum or Plasma Low 250.0-450.0 [facility] Iron saturation [Mass Fracti on] in Serum or Plasmaon 06-20-2024 Iron saturation [Mass fraction] Iron saturation [Mass Fraction] in Serum or Plasma [facility] Laboratory - Chemistry and C hemistry - challengeon 06-20-2024 Ferritin [Mass/Vol] 147.0 ng/mL 8.0-252.0 [facility] Iron [Mass/Vol] 51.0 ug/dL 50.0-170.0 [facility] Magnesium [Mass/Vol] 1.6 mg/dL Low 1.8-2.4 [facility] Urate [Mass/Vol] 8.0 mg/dL High 2.6-6.0 [facility] - Urinalysison Protein (U) [Mass/Vol] 30.4 mg/dL High <=11.9 [facility] No Panel Informationon 06-20 25-Hydroxy Vitamin D Total 37.9 ng/mL [facility] Comment on above: <20 ng/mL Vit D defi cient20-<30 ng/mL Vit D meubumdscddg96-056 ng/mL Vit D sufficient>100 ng/mL Potential Toxicity Parathyroid Hormone (Intact) 43 pg/mL 15-65 [facility] Comment on above: Performed at: - [address] [id number] Director: Jozef Medina PhD, Phone: [phone] Phosphorus Level 3.7 mg/dL 2.6-4.7 [facility] Protein Electrophoresis M-Benjy Comment: g/dL Not Observed [facility] Comment on above: SPE shows an asymmet rical gamma. Protein Electrophoresis Note Comment . [facility] Comment on above: Protein electrophore sis scan will follow via computer,mail, or food equipment service technician delivery. Urine Random Creatinine 127.97 mg/dL 20.0 0-300.0 0 [facility] Protein [Mass/volume] in Ser um or Plasmaon 06-20-2024 Protein [Mass/Vol] Protein [Mass/volume ] in Serum or Plasma 6.0-8.5 [facility] Serum globulin measurement ( mass/volume)on 06-20-2024 Globulin (S) [Mass/Vol] Serum globulin measurement (mass/volume) 2.2-3.9 [facility] Serum or plasma albumin/glob ulin mass ratioon 06-20-2024 Albumin/Globulin [Mass ratio] Serum or plasma albumin/globulin mass ratio 0.7-1.7 [facility] Serum or plasma alpha 1 glob ulin measurement by electrophoresis (mass/volume)on 06-20-2024 Alpha 1 globulin Elph [Mass/Vol] Serum or plasma alpha 1 globulin measurement by electrophoresis (mass/volume) 0.0-0.4 [facility] Serum or plasma alpha 2 glob ulin measurement by electrophoresis (mass/volume)on 06-20-2024 Alpha 2 globulin Elph [Mass/Vol] Serum or plasma alpha 2 globulin measurement by electrophoresis (mass/volume) 0.4-1.0 [facility] Serum or plasma beta globuli n measurement by electrophoresis (mass/volume)on 06-20-2024 Beta globulin Elph [Mass/Vol] Serum or plasma beta globulin measurement by electrophoresis (mass/volume) 0.7-1.3 [facility] Serum or plasma gamma globul in measurement by electrophoresis (mass/volume)on 06-20-2024 Gamma globulin Elph [Mass/Vol] Serum or plasma gamma globulin measurement by electrophoresis (mass/volume) 0.4-1.8 [facility] Serum or plasma immunoelectr ophoresis interpretationon 06-20-2024 Interpretation IEP [Interp] Serum or plasma immunoelectrophoresis interpretation . [facility] Comment on above: Presence of monoclon al protein is unclear at this time. Suggestrepeat in 3 to 6 months if clinically indicated. Urine protein/creatinine rat ioon 06-20-2024 Protein/Creatinine (U) [Ratio] Urine protein/creatinine ratio [facility] Urology Office/Clinic Noteon 05-19-2024 Urology Office/Clinic Note Urology Office/Clinic Note Chief Complaint Cysto HPI Staff Cysto, pelvic exam History of Present Illness Tests reviewed: I have reviewed the previous health record information and history for this patient from Dr. Mendez. I have reviewed and verified the staff [...] started at 17 yo stopped in 2016. [2] Increased risk for UCC. 4. Aspirin long-term use (Z79.82: [facility] (current) use of aspirin) ASA. No BTs. Has pacemaker. Hx of CO but was asx, not sure when it happened. [3] Objective demonstration of stress urinary incontinence today on exam. We discussed with her that she would benefit from cystoscopy, Bulkamid injection. She will follow-up for the procedure. Follow-up With When Contact Information BRYAN BELTRÁN, ROSETTA, SASKIA Additional Instructions: schedule Bulkamid Patient Education Elvi [place], personally scribed for Dr. Rosetta Mendez on 05/19/2024 09:01:12. . Portions of this record may have been created with voice recognition artificial intelligence software, specifically [employer], [employer] and or [employer]. Substitutions may have occurred due to the inherent limitations of voice recognition and artificial intelligence software. Documentation recorded by the scribe, Elvi Posadas, accurately reflects the services(s) I performed and decisions made by me. Authenticated by Dr. Mendez on 05/19/2024 09:39:50. Problem List/Past Medical History [...] hypertension Spina (more content not included)... Normal [facility] Comment on above: Result Comment: Elec tronically Signed By: BRYAN BELTRÁN, ROSETTA\.br\Date and Time Signed: 05/19/24 09:40 EST\.br\Electronically Co-Signed By: Elvi Posadas\.br\Date and Time Co-Signed: 05/19/24 09:01 EST Office Visiton 05-09-2024 Follow-up visit [id number] Brian Sadler se 1950 F Date Provider Department Center 05/09/2024 JOSEY ARNOLD [facility] Family History Problem Relation Age of Onset Other Mother Coronary artery disease Mother Other Mother Other Mother Other Father Hypertension Father Hyperlipidemia Father Other Daughter Family Status - Relation Status Age at Mother Father Daughter Level of Service:47685 OR OFFICE/OUTPATIENT ESTABLISHED LOW MDM 20 MIN Normal [facility] XR Sinuses 3 [address] [facility] [address] [place] [address] XRay Report Signed Patient: VERO SADLER MR#: [id number] : 1950 Acct:[id number] Age/Sex: 74 / F ADM Date: 05/09/24 Loc: RAD Attending Dr: John Mathews M.D. Ordering Physician: John Mathews M.D. Date of Service: 05/09/24 Procedure(s): XR sinus min 3V Accession Number(s): [id number] cc: Debbie Bhatia M.D.; John Mathews M.D. The [address] [address] Patient Name: VERO SADLER MRN: [facility]:[id number] date: 1950 Sex: F Assigned Patient Location: RAD Current Patient Location: RAD Accession/Order Number: [id number] Exam Date: 05/09/2024 12:47 Report Date: 05/09/2024 [...] Kelly Lao M.D.05/09/2024 12:54 PM Dictation Location: [place] [address] Electronically authenticated by: [id number] Y Date: 05/09/2024 12:54 Dictated By: Kelly Lao M.D. Signed By: 05/09/24 1257 DD/ 1254 TD/TT: Lead Instructor/Flight Attendant: [facility] Radiology Radiologtito montemayor MD - 05/09/2024 The [place] [id number] XRay Report Signed Patient: VERO SADLER MR#: [id number] : 1950 Acct:[id number] Age/Sex: 74 / F ADM Date: 05/09/24 Loc: RAD Attending Dr: John Mathews M.D. Ordering Physician: Timmis,John M.D. Date of Service: 05/09/24 Procedure(s): XR sinus min 3V Accession Number(s): [id number] cc: Debbie Bhatia M.D.; John Mathews M.D. [place] [id number] Patient Name: VERO SADLER MRN: [id number] date: 1950 Sex: F Assigned Patient Location: [facility] Current Patient Location: RAD Accession/Order Number: [id number] Exam Date: 05/09/2024 12:47 Report Date: 05/09/2024 [...] Kelly Lao M.D.05/09/2024 12:54 PM Dictation Location: [place] [address] Electronically authenticated by: [id number] Y Date: 05/09/2024 12:54 Dictated By: Kelly Lao M.D. Signed By: 05/09/24 1257 DD/ 1254 TD/TT: Lead Instructor/Flight Attendant: [facility] Radiology Study observation (narrative) [facility] XR Sinuses 3 ViewsOrdered By : Radiologist Radiology on 05-09-2024 [facility] Work Phone: Ambulatory Visit Summaryon 0 03-31-2024 Ambulatory Visit Summary Ambulatory Visit Summary VERO SADLER :1950 Visit Date:03/31/2024 Ambulatory Visit Instructions Your Diagnosis Stress incontinence, female Kidney stones Former smoker Aspirin long-term use Your Care Team Attending Physician - BRYAN BELTRÁN, ROSETTA Primary Care Physician - Debbie Bhatia MD Referring Physician - Debbie Bhatia MD This Is Your Medications List Contact [...] a (more content not included)... Normal [facility] Urology Office/Clinic Noteon 03-31-2024 Urology Office/Clinic Note Urology Office/Clinic Note Chief Complaint New Pt HPI Staff Vero is a 74 year old female new pt referred by Debbie Bhatia for bladder prolapse. US renal bladder on [...] history for this patient from Dr. Debbie Bhatia . I have reviewed and verified the [...] old female new pt referred by Debbie Bhatia for bladder prolapse. 1. Stress incontinence, female [...] ASA. No BTs. Has pacemaker. Hx of CO but was asx, not sure when it [...] Follow-up With When Contact Information BRYAN BELTRÁN, ROSETTA, URL Additional Instructions: schedule cysto with pelvic exam to assess for JOSE ANTONIO Patient Education Cystoscopy Injection Treatments for Urinary Incontinence Elvi [place], personally scribed for Dr. Rosetta Mendez on 03/31/2024 15:10:07. . Portions of this record may have been created with voice recognition artificial intelligence software, specifically [employer], [employer] and or [employer]. Substitutions may have occurred due to the inherent limitations of voice recognition and artificial intelligence software. Documentation recorded by the scribe, Elvi Posadas, accurately reflects the services(s) I performed and decisions made by me. Authenticated by Dr. Mendez on 03/31/2024 15:12:01. Problem List/Past Medical History Ongoing Aspirin long-term use Atrial fibrillation Bradycardia CAD (coronary artery disease) Chronic kidney disease due t (more content not included)... Normal [facility] Comment on above: Result Comment: Elec tronically Signed By: BRYAN BELTRÁN, ROSETTA\.br\Date and Time Signed: 03/31/24 15:13 EST\.br\Electronically Co-Signed By: Elvi Posadas\.br\Date and Time Co-Signed: 03/31/24 15:10 EST\.br\Electronically Co-Signed By: Elvi Posadas\.br\Date and Time Co-Signed: 03/31/24 15:10 EST Office Visiton 01-26-2024 Follow-up visit [id number] Brian Sadler se 1950 F Date Provider Department Center 01/26/2024 271-TATO SALCIDO CARD [facility] Family History Problem Relation Age of Onset Other Mother Coronary artery disease Mother Other Mother Other Mother Other Father Hypertension Father Hyperlipidemia Father Other Daughter Family Status - Relation Status Age at Mother Father Daughter Level of Service:73871 OR OFFICE/OUTPATIENT ESTABLISHED LOW MDM 20 MIN Normal [facility] MR LUMBAR SPINE WO CONTRASTo n [...] foraminal narrowing. Electronically signed: Arnol Cutler MD. [facility] Comment on above: Order Comment: ORDER IN Comeet Adriel 11-23-2023 SANDIE Coughlin from [employer] prepped pacemaker. Patient verbalizes no issues with device. Monitor hooked up for continuous patient monitoring throughout the scan. Normal [facility] Office Visiton 10-26-2023 Follow-up visit [id number] Brian Sadler se 1950 F Date Provider Department Center 10/26/2023 JOSEY ARNOLD LEEANN [facility] Family History Problem Relation Age of Onset Other Mother Coronary artery disease Mother Other Mother Other Mother Other Father Hypertension Father Hyperlipidemia Father Other Daughter Family Status - Relation Status Age at Mother Father Daughter Level of Service:23474 OR OFFICE/OUTPATIENT ESTABLISHED LOW MDM 20 MIN Normal [facility] CBC AUTO DIFFon 07-17-2022 BASO # 0.0 103/ul Normal 0.0-0.1 [facility] Comment on above: Performed By: #### C BC #### [facility] [address] [place] [address] Dr. Eusebia Moralez Basophils/100 WBC (Bld) 0.6 % Normal 0.2-2.0 [facility] Comment on above: Performed By: #### C BC #### [facility] [address] [place] [address] Dr. Eusebia Moralez EO # 0.2 103/ul Normal 0.0-0.7 [facility] Comment on above: Performed By: #### C BC #### [facility] [address] [place] [address] Dr. Eusebia Moralez Eosinophils/100 WBC (Bld) 2.2 % Normal 0.9-7.0 [facility] Comment on above: Performed By: #### C BC #### [facility] [address] [address] [address] Eusebia Moralez Erythrocyte distribution width (RBC) [Ratio] 13.0 % Normal 11.0-15.0 [facility] Comment on above: Performed By: #### C BC #### [facility] [address] [place] [address] Dr. Eusebia Moralez Hematocrit (Bld) [Volume fraction] 40.5 % Normal 36.0-48.0 [facility] Comment on above: Performed By: #### C BC #### [facility] [address] [place] [address] Dr. Eusebia Moralez Hemoglobin (Bld) [Mass/Vol] 12.7 g/dL Normal 12.0-16.0 [facility] Comment on above: Performed By: #### C BC #### [facility] [address] [place] [address] Dr. Eusebia Moralez IG # 0.02 10e3/ul Normal 0.00-0.03 [facility] Comment on above: Performed By: #### C BC #### [facility] [address] [place] [address] Dr. Eusebia Moralez IG % 0.3 % Normal 0.0-0.5 [facility] Comment on above: Performed By: #### C BC #### [facility] [address] [place] [address] Dr. Eusebia Moralez LYMPH # 1.4 103/ul Normal 1.2-3.8 [facility] Comment on above: Performed By: #### C BC #### [facility] [address] [place] [address] Dr. Eusebia Moralez Lymphocytes/100 WBC (Bld) 19.9 % Critically low 20.5-60.0 [facility] Comment on above: Performed By: #### C BC #### [facility] [address] [place] [address] Dr. Eusebia Moralez MANUAL DIFF REQ NO Normal [facility] Comment on above: Performed By: #### C BC #### [facility] [address] [place] [address] Dr. Eusebia Moralez MCH (RBC) [Entitic mass] 29.1 pg Normal 26.7-34.0 [facility] Comment on above: Performed By: #### C BC #### [facility] [address] [place] [address] Dr. Eusebia Moralez MCHC (RBC) [Mass/Vol] 31.4 g/dL Normal 29.9-35.2 [facility] Comment on above: Performed By: #### C BC #### [facility] [address] [place] [address] Dr. Eusebia Moralez MCV (RBC) [Entitic vol] 92.9 fL Normal 81.0-99.0 [facility] Comment on above: Performed By: #### C BC #### [facility] [address] [place] [address] Dr. Eusebia Moralez MONO # 0.7 103/ul Normal 0.3-0.8 [facility] Comment on above: Performed By: #### C BC #### [facility] [address] [place] [address] Dr. Eusebia Moralez Monocytes/100 WBC (Bld) 9.4 % Normal 1.7-12.0 [facility] Comment on above: Performed By: #### C BC #### [facility] [address] [place] [address] Dr. Eusebia Moralez NEUT # 4.7 103/ul Normal 1.4-6.5 [facility] Comment on above: Performed By: #### C BC #### [facility] [address] [place] [address] Dr. Eusebia Moralez Neutrophils/100 WBC (Bld) 67.6 % Normal 43.0-75.0 [facility] Comment on above: Performed By: #### C BC #### [facility] [address] [place] [address] Dr. Eusebia Moralez Platelet mean volume (Bld) [Entitic vol] 9.9 fL Normal 9.5-13.5 [facility] Comment on above: Performed By: #### C BC #### [facility] [address] [place] [address] Dr. Eusebia Moralez PLT 218 103/ul Normal 150-450 [facility] Comment on above: Performed By: #### C BC #### [facility] [address] [place] [address] Dr. Eusebia Moralez RBC 4.36 106/ul Normal 4.20-5.40 [facility] Comment on above: Performed By: #### C BC #### [facility] [address] [place] [address] Dr. Eusebia Moralez WBC 6.9 103/ul Normal 4.0-11.0 [facility] Comment on above: Performed By: #### C BC #### [facility] [address] [address] [address] Eusebia Moralez PROF CHEM 8 (BAS METB)on Anion gap [Moles/Vol] 9.0 mmol/L Normal [facility] Comment on above: Performed By: #### B MP #### [facility] [address] [address] [address] Eusebia Moralez Calcium [Mass/Vol] 9.2 mg/dL Normal 8.5-10.1 [facility] [place] [facility] Comment on above: Performed By: #### B MP #### [facility] [address] [address] [address] Eusebia Moralez Chloride [Moles/Vol] 103 mmol/L Normal 98-107 [facility] Comment on above: Performed By: #### B MP #### [facility] [address] [place] [address] Dr. Eusebia Moralez CO2 [Moles/Vol] 32.9 mmol/L Critically high 21.0-32.0 [facility] Comment on above: Performed By: #### B MP #### [facility] [address] [place] [address] Dr. Eusebia Moralez Creatinine [Mass/Vol] 1.74 mg/dL Critically high 0.55-1.02 [facility] Comment on above: Performed By: #### B MP #### [facility] [address] [address] [address] Eusebia Moralez EGFR-AF BELGIAN 35 mL/min/1.73m2 Critically low >=60 [facility] Comment on above: Performed By: #### B MP #### [facility] [address] [address] [address] Eusebia Moralez EGFR-NON AF BELGIAN 29 mL/min/1.73m2 Critically low >=60 [facility] Comment on above: Performed By: #### B MP #### [facility] [address] [address] [address] Eusebia Moralez Glucose [Mass/Vol] 101 mg/dL Normal 74-106 [facility] Comment on above: Performed By: #### B MP #### [facility] [address] [address] [address] Eusebia Moralez Potassium [Moles/Vol] 3.9 mmol/L Normal 3.5-5.1 [facility] Comment on above: Performed By: #### B MP #### [facility] [address] [address] [address] Eusebia Moralez Sodium [Moles/Vol] 141 mmol/L Normal 136-145 [facility] [place] [facility] Comment on above: Performed By: #### B MP #### [facility] [address] [address] [address] Eusebia Moralez Urea nitrogen [Mass/Vol] 34.0 mg/dL Critically high 7.0-18.0 [facility] Comment on above: Performed By: #### B MP #### [facility] [address] [address] [address] Eusebia Moralez Urea nitrogen/Creatinine [Mass ratio] 19.5 mg/mg Normal [facility] Comment on above: Performed By: #### B MP #### [facility] [address] [address] [address] Eusebia Moralez CBC AUTO DIFFon 07-02-2022 BASO # 0.1 103/ul Normal 0.0-0.1 [facility] Comment on above: Performed By: #### C BC ####[facility] [address] [address]Dr. Eusebia Moralez Basophils/100 WBC (Bld) 0.7 % Normal 0.2-2.0 [facility] Comment on above: Performed By: #### C BC ####[facility] [address] [id number]. Eusebia Moralez EO # 0.1 103/ul Normal 0.0-0.7 [facility] Comment on above: Performed By: #### C BC ####[facility] [address] [id number]. Eusebia Moralez Eosinophils/100 WBC (Bld) 1.8 % Normal 0.9-7.0 [facility] Comment on above: Performed By: #### C BC ####[facility] [address] [address]Dr. Eusebia Moralez Erythrocyte distribution width (RBC) [Ratio] 13.1 % Normal 11.0-15.0 [facility] Comment on above: Performed By: #### C BC ####[facility] [address] [place], [place] [address]Dr. Eusebia Moralez Hematocrit (Bld) [Volume fraction] 40.2 % Normal 36.0-48.0 [facility] Comment on above: Performed By: #### C BC ####[facility] [address] [place], [place] [address]Dr. Eusebia Moralez Hemoglobin (Bld) [Mass/Vol] 12.5 g/dL Normal 12.0-16.0 [facility] Comment on above: Performed By: #### C BC ####[facility] [address] [place], [place] [address]Dr. Eusebia Moralez IG # 0.01 10e3/ul Normal 0.00-0.03 [facility] Comment on above: Performed By: #### C BC ####[facility] [address] [place], [place] [address]Dr. Eusebia Moralez IG % 0.1 % Normal 0.0-0.5 [facility] Comment on above: Performed By: #### C BC ####[facility] [address] [place], [place] [address]Dr. Eusebia Kirt LYMPH # 1.5 103/ul Normal 1.2-3.8 [facility] Comment on above: Performed By: #### C BC ####[facility] [address] [place], [place] [address]Dr. Lisadenise Moralez Lymphocytes/100 WBC (Bld) 22.6 % Normal 20.5-60.0 [facility] Comment on above: Performed By: #### C BC ####[facility] [address] [place], [place] [address]Dr. Eusebia Moralez MANUAL DIFF REQ NO Normal [facility] Comment on above: Performed By: #### C BC ####[facility] [address] [phone]. Eusebia Kirt MCH (RBC) [Entitic mass] 29.3 pg Normal 26.7-34.0 [facility] Comment on above: Performed By: #### C BC ####[facility] [address] [address]Dr. Eusebia Kirt MCHC (RBC) [Mass/Vol] 31.1 g/dL Normal 29.9-35.2 [facility] Comment on above: Performed By: #### C BC ####[facility] [address] [address]DrRadha Moralez MCV (RBC) [Entitic vol] 94.4 fL Normal 81.0-99.0 [facility] Comment on above: Performed By: #### C BC ####[facility] [address] [place], [place] [address]DrRadha Moralez MONO # 0.6 103/ul Normal 0.3-0.8 [facility] Comment on above: Performed By: #### C BC ####[facility] [address] [place], [place] [address]DrRadha Moralez Monocytes/100 WBC (Bld) 9.1 % Normal 1.7-12.0 [facility] Comment on above: Performed By: #### C BC ####[facility] [address] [place], [place] [address]DrRahda Moralez NEUT # 4.4 103/ul Normal 1.4-6.5 [facility] Comment on above: Performed By: #### C BC ####[facility] [address] [place], [place] [address]DrRadha Moralez Neutrophils/100 WBC (Bld) 65.7 % Normal 43.0-75.0 [facility] Comment on above: Performed By: #### C BC ####[facility] [address] [place], [place] [address]DrRadha Moralez Platelet mean volume (Bld) [Entitic vol] 9.6 fL Normal 9.5-13.5 [facility] Comment on above: Performed By: #### C BC ####[facility] [address] [address]Dr. Eusebia Moralez PLT 204 103/ul Normal 150-450 [facility] Comment on above: Performed By: #### C BC ####[facility] [address] [address]Dr. Eusebia Moralez RBC 4.26 106/ul Normal 4.20-5.40 [facility] Comment on above: Performed By: #### C BC ####[facility] [address] [address]Dr. Eusebia Moralez WBC 6.7 103/ul Normal 4.0-11.0 [facility] Comment on above: Performed By: #### C BC ####[facility] [address] [place], [place] [address]Dr. Eusebia Moralez PROF CHEM 8 (BAS METB)on Anion gap [Moles/Vol] 11.2 mmol/L Normal [facility] Comment on above: Performed By: #### B MP ####[facility] [address] [place], [place] [address]Dr. Eusebia Moralez Calcium [Mass/Vol] 9.2 mg/dL Normal 8.5-10.1 [facility] [place] [facility] Comment on above: Performed By: #### B MP ####[facility] [address] [place], [place] [address]Dr. Eusebia Moralez Chloride [Moles/Vol] 109 mmol/L Critically high 98-107 [facility] Comment on above: Performed By: #### B MP ####[facility] [address] [place], [place] [address]DrRadha Moralez CO2 [Moles/Vol] 27.6 mmol/L Normal 21.0-32.0 [facility] Comment on above: Performed By: #### B MP ####[facility] [address] [place], [place] [address]Dr. Eusebia Moralez Creatinine [Mass/Vol] 1.49 mg/dL Critically high 0.55-1.02 [facility] Comment on above: Performed By: #### B MP ####[facility] [address] [address]Dr. Eusebia Moralez EGFR-AF BELGIAN 42 mL/min/1.73m2 Critically low >=60 [facility] Comment on above: Performed By: #### B MP ####[facility] [address] [id number]. Eusebia Moralez EGFR-NON AF BELGIAN 34 mL/min/1.73m2 Critically low >=60 [facility] Comment on above: Performed By: #### B MP ####[facility] [address] [place], [place] [address]Dr. Eusebia Moralez Glucose [Mass/Vol] 89 mg/dL Normal 74-106 [facility] [place] [facility] Comment on above: Performed By: #### B MP ####[facility] [address] [place], [place] [address]Dr. Eusebia Moralez Potassium [Moles/Vol] 4.8 mmol/L Normal 3.5-5.1 [facility] Comment on above: Performed By: #### B MP ####[facility] [address] [place], [place] [address]Dr. Eusebia Moralez Sodium [Moles/Vol] 143 mmol/L Normal 136-145 [facility] [place] [facility] Comment on above: Performed By: #### B MP ####[facility] [address] [address]Dr. Eusebia Moralez Urea nitrogen [Mass/Vol] 27.0 mg/dL Critically high 7.0-18.0 [facility] Comment on above: Performed By: #### B MP ####[facility] [address] [place], [place] [address]Dr. Eusebia Moralez Urea nitrogen/Creatinine [Mass ratio] 18.1 mg/mg Normal [facility] Comment on above: Performed By: #### B MP ####[facility] [address] [place], [place] [id number]. Eusebia Moralez CT LUNG CANCER SCREENINGon 1 [...] AMBAR MAYA Date: 2022-02-24 08:15 Normal [facility] PROF CHEM 8 (BAS METB)on Anion gap [Moles/Vol] 9.7 mmol/L Normal [facility] Comment on above: Performed By: #### B MP #### [facility] [address] [place] [address] Dr. Eusebia Moralez Calcium [Mass/Vol] 8.8 mg/dL Normal 8.5-10.1 [facility] Comment on above: Performed By: #### B MP #### [facility] [address] [address] [address] Eusebia Moralez Chloride [Moles/Vol] 107 mmol/L Normal 98-107 [facility] Comment on above: Performed By: #### B MP #### [facility] [address] [address] [address] Eusebia Moralez CO2 [Moles/Vol] 29.5 mmol/L Normal 21.0-32.0 [facility] Comment on above: Performed By: #### B MP #### [facility] [address] [address] [address] Eusebia Moralez Creatinine [Mass/Vol] 1.83 mg/dL Critically high 0.55-1.02 [facility] Comment on above: Performed By: #### B MP #### [facility] [address] [address] [address] Eusebia Moralez EGFR-AF BELGIAN 33 mL/min/1.73m2 Critically low >=60 [facility] Comment on above: Performed By: #### B MP #### [facility] [address] [address] [address] Eusebia Moralez EGFR-NON AF BELGIAN 27 mL/min/1.73m2 Critically low >=60 [facility] Comment on above: Performed By: #### B MP #### [facility] [address] [address] [address] Eusebia Moralez Glucose [Mass/Vol] 87 mg/dL Normal 74-106 [facility] Comment on above: Performed By: #### B MP #### [facility] [address] [address] [address] Eusebia Moralez Potassium [Moles/Vol] 5.2 mmol/L Critically high 3.5-5.1 [facility] Comment on above: Performed By: #### B MP #### [facility] [address] [address] [address] Eusebia Moralez Sodium [Moles/Vol] 141 mmol/L Normal 136-145 [facility] Comment on above: Performed By: #### B MP #### [facility] [address] [address] [address] Eusebia Moralez Urea nitrogen [Mass/Vol] 37.0 mg/dL Critically high 7.0-18.0 [facility] Comment on above: Performed By: #### B MP #### [facility] [address] [address] [address] Eusebia Moralez Urea nitrogen/Creatinine [Mass ratio] 20.2 mg/mg Normal [facility] Comment on above: Performed By: #### B #### [facility] [address] [place] [address] Dr. Eusebia Moralez NM STRESS/REST MULTIon 01-23 NM STRESS/REST MULTI Patient: DARON SADLER Exam Date: 01/23/2022 : 1950 Gender:F Ordering : DR DEBBIE BHATIA . Admission #: [id number] Family : Order #: [id number] CLICK HERE TO VIEW EXAM RADIOLOGY REPORT [...] Canchola MD on 01/26/2022 at 13:[address] [facility] ECHOCARDIO M/2D COMPLETEon 1 03-23-2021 ECHOCARDIO M/2D COMPLETE Patient: VERO SADLER Exam Date: 01/21/2022 : 1950 Gender:F Ordering : DR DEBBIE BHATIA . Admission #: [id number] Family : Order #: [id number] CLICK HERE TO VIEW EXAM ECHOCARDIOGRAM REPORT [...] Tato Salcido M.D. on 01/21/2022 at 09:17 [facility] XR DEXA BONE DENSITYon 01-21 XR DEXA BONE DENSITY EXAMINATION: XR DEX A BONE DENSITY, 01/21/2022 8:27 AM EST HISTORY: [...] authenticated by: RAJI CANCHOLA Date: 2022-01-21 10:03 [facility] BNPon 01-14-2022 Natriuretic peptide B (Bld) [Mass/Vol] 834.0 pg/mL Normal <=900.0 [facility] Comment on above: Performed By: #### T SH, BNP, CMP, T7, LIPID ####[facility] [address] [place], [place] [address]HaDr. Eusebia Moralez CBC AUTO DIFFon 01-14-2022 BASO # 0.0 103/ul Normal 0.0-0.1 [facility] Comment on above: Performed By: #### C BC #### [facility] [address] [address] [address] Eusebia Moralez Basophils/100 WBC (Bld) 0.4 % Normal 0.2-2.0 [facility] Comment on above: Performed By: #### C BC #### [facility] [address] [address] [address] Eusebia Moralez EO # 0.1 103/ul Normal 0.0-0.7 [facility] Comment on above: Performed By: #### C BC #### [facility] [address] [address] [address] Eusebia Moralez Eosinophils/100 WBC (Bld) 1.1 % Normal 0.9-7.0 [facility] Comment on above: Performed By: #### C BC #### [facility] [address] [address] [address] Eusebia Moralez Erythrocyte distribution width (RBC) [Ratio] 15.0 % Normal 11.0-15.0 [facility] Comment on above: Performed By: #### C BC #### [facility] [address] [address] [address] Eusebia Moralez Hematocrit (Bld) [Volume fraction] 39.6 % Normal 36.0-48.0 [facility] Comment on above: Performed By: #### C BC #### [facility] [address] [place] [address] Dr. Eusebia Moralez Hemoglobin (Bld) [Mass/Vol] 12.4 g/dL Normal 12.0-16.0 [facility] Comment on above: Performed By: #### C BC #### [facility] [address] [place] [address] Dr. Eusebia Moralez IG # 0.02 10e3/ul Normal 0.00-0.03 [facility] Comment on above: Performed By: #### C BC #### [facility] [address] [place] [address] Dr. Eusebia Moralez IG % 0.3 % Normal 0.0-0.5 [facility] Comment on above: Performed By: #### C BC #### [facility] [address] [place] [address] Dr. Eusebia Moralez LYMPH # 1.3 103/ul Normal 1.2-3.8 [facility] Comment on above: Performed By: #### C BC #### [facility] [address] [place] [address] Dr. Eusebia Moralez Lymphocytes/100 WBC (Bld) 17.9 % Critically low 20.5-60.0 [facility] Comment on above: Performed By: #### C BC #### [facility] [address] [place] [address] Dr. Eusebia Moralez MANUAL DIFF REQ NO Normal [facility] Comment on above: Performed By: #### C BC #### [facility] [address] [place] [address] Dr. Eusebia Moralez MCH (RBC) [Entitic mass] 29.8 pg Normal 26.7-34.0 [facility] Comment on above: Performed By: #### C BC #### [facility] [address] [place] [address] Dr. Eusebia Moralez MCHC (RBC) [Mass/Vol] 31.3 g/dL Normal 29.9-35.2 [facility] Comment on above: Performed By: #### C BC #### [facility] [address] [place] [address] Dr. Eusebia Moralez MCV (RBC) [Entitic vol] 95.2 fL Normal 81.0-99.0 [facility] Comment on above: Performed By: #### C BC #### [facility] [address] [place] [address] Dr. Eusebia Moralez MONO # 0.5 103/ul Normal 0.3-0.8 [facility] Comment on above: Performed By: #### C BC #### [facility] [address] [address] [address] Eusebia Moralez Monocytes/100 WBC (Bld) 7.0 % Normal 1.7-12.0 [facility] Comment on above: Performed By: #### C BC #### [facility] [address] [place] [address] Dr. Eusebia Moralez NEUT # 5.2 103/ul Normal 1.4-6.5 [facility] Comment on above: Performed By: #### C BC #### [facility] [address] [place] [address] Dr. Eusebia Moralez Neutrophils/100 WBC (Bld) 73.3 % Normal 43.0-75.0 [facility] Comment on above: Performed By: #### C BC #### [facility] [address] [place] [address] Dr. Eusebia Moralez Platelet mean volume (Bld) [Entitic vol] 9.5 fL Normal 9.5-13.5 [facility] Comment on above: Performed By: #### C BC #### [facility] [address] [place] [address] Dr. Eusebia Moralez PLT 188 103/ul Normal 150-450 [facility] Comment on above: Performed By: #### C BC #### [facility] [address] [place] [address] Dr. Eusebia Moralez RBC 4.16 106/ul Critically low 4.20-5.40 [facility] Comment on above: Performed By: #### C BC #### [facility] [address] [place] [address] Dr. Eusebia Moralez WBC 7.0 103/ul Normal 4.0-11.0 [facility] Comment on above: Performed By: #### C BC #### [facility] [address] [place] [address] Dr. Eusebia Moralez FREE THYROXINE INDEX T7on FTI 2.45 Normal 1.30-4.50 [facility] Comment on above: Performed By: #### T SH, BNP, CMP, T7, LIPID ####[facility] [address] [id number] Moralez T3U 35.0 % Normal 30.0-39.0 [facility] Comment on above: Performed By: #### T SH, BNP, CMP, T7, LIPID ####[facility] [address] [address]DrRadha Moralez T4 [Mass/Vol] 7.00 ug/dL Normal 4.80-13.90 [facility] Comment on above: Performed By: #### T SH, BNP, CMP, T7, LIPID ####[facility] [id number] [address]DrRadha Moralez IRONon 01-14-2022 Iron [Mass/Vol] 58.0 ug/dL Normal 50.0-170.0 [facility] Comment on above: Performed By: #### I MONIE #### [facility] [address] [address] [address] Eusebia Moralez LIPID PROFILEon 01-14-2022 CHOL-HDL RATIO NORM SEE BELOW Normal [facility] Comment on above: Result Comment: 3.3 - 4.4 LOW RISK 4.4 - 7.1 AVERAGE RISK 7.1 - 11.0 MODERATE RISK >11.0 HIGH RISK Performed By: #### T SH, BNP, CMP, T7, LIPID ####[facility] [id number] [phone] Moralez Cholesterol [Mass/Vol] 186 mg/dL Normal <=200 [facility] Comment on above: Performed By: #### T SH, BNP, CMP, T7, LIPID ####[facility] [id number] [phone] Moralez Cholesterol in HDL [Mass/Vol] 45 mg/dL Normal 40-60 [facility] Comment on above: Performed By: #### T SH, BNP, CMP, T7, LIPID ####[facility] [id number] [phone]. Eusebia Moralez Cholesterol in LDL [Mass/Vol] 118.4 mg/dL Normal [facility] Comment on above: Performed By: #### T SH, BNP, CMP, T7, LIPID ####[facility] [id number] [place], [place] [address]Qy. Eusebia Moralez Cholesterol.total/Latoya sterol in HDL [Mass ratio] 4.1 {ratio} Normal [facility] Comment on above: Performed By: #### T SH, BNP, CMP, T7, LIPID ####[facility] [id number] [phone]. Eusebia Moralez HDL NORMAL > or = 60 mg/dl - LO W CARDIOVASCULAR RISK <40 mg/dl - HIGH CARDIOVASCULAR RISK Normal [facility] Comment on above: Performed By: #### T SH, BNP, CMP, T7, LIPID ####[facility] [id number] [address]Dr. Eusebia Moralez LDL CALC NORMAL SEE BELOW Normal [facility] Comment on above: Result Comment: <100 mg/dl OPTIMAL 100 - 129 mg/dl NEAR OR ABOVE OPTIMAL 130 - 159 mg/dl BORDERLINE HIGH 160 - 189 mg/dl HIGH >190 mg/dl VERY HIGH Performed By: #### T SH, BNP, CMP, T7, LIPID ####[facility] [address] [phone]. Eusebia Moralez Triglyceride [Mass/Vol] 113 mg/dL Normal <=150 [facility] Comment on above: Performed By: #### T SH, BNP, CMP, T7, LIPID ####[facility] [id number] [phone]. Eusebia Moralez VLDL CALC 22.6 mg/dL Normal [facility] Comment on above: Performed By: #### T SH, BNP, CMP, T7, LIPID ####[facility] [address] [phone]. Eusebia Moralez PROF 14(COMP METB)on 022 Albumin [Mass/Vol] 3.3 g/dL Critically low 3.4-5.0 Th [facility] Comment on above: Performed By: #### T SH, BNP, CMP, T7, LIPID #### [facility] [address] [address] [address] Eusebia Moralez Albumin/Globulin [Mass ratio] 0.9 {ratio} Normal [facility] Comment on above: Performed By: #### T SH, BNP, CMP, T7, LIPID #### [facility] [address] [address] [address] Eusebia Moralez ALP [Catalytic activity/Vol] 81 U/L Normal 46-116 [facility] Comment on above: Performed By: #### T SH, BNP, CMP, T7, LIPID #### [facility] [address] [place] [address] Dr. Eusebia Moralez ALT [Catalytic activity/Vol] 19 U/L Normal 14-59 [facility] Comment on above: Performed By: #### T SH, BNP, CMP, T7, LIPID #### [facility] [address] [place] [address] Dr. Eusebia Moralez Anion gap [Moles/Vol] 12.3 mmol/L Normal [facility] Comment on above: Performed By: #### T SH, BNP, CMP, T7, LIPID #### [facility] [address] [place] [address] Dr. Eusebia Moralez AST [Catalytic activity/Vol] 12 U/L Critically low 15-37 [facility] Comment on above: Performed By: #### T SH, BNP, CMP, T7, LIPID #### [facility] [address] [place] [address] Dr. Eusebia Moralez Bilirubin [Mass/Vol] 0.4 mg/dL Normal 0.2-1.0 [facility] Comment on above: Performed By: #### T SH, BNP, CMP, T7, LIPID #### [facility] [address] [place] [address] Dr. Eusebia Moralez Calcium [Mass/Vol] 8.9 mg/dL Normal 8.5-10.1 [facility] [place] [facility] Comment on above: Performed By: #### T SH, BNP, CMP, T7, LIPID #### [facility] [address] [address] [address] Eusebia Moralez Chloride [Moles/Vol] 106 mmol/L Normal 98-107 [facility] Comment on above: Performed By: #### T SH, BNP, CMP, T7, LIPID #### [facility] [address] [address] [address] Eusebia Moralez CO2 [Moles/Vol] 27.4 mmol/L Normal 21.0-32.0 [facility] Comment on above: Performed By: #### T SH, BNP, CMP, T7, LIPID #### [facility] [address] [place] [address] Dr. Eusebia Moralez Creatinine [Mass/Vol] 1.51 mg/dL Critically high 0.55-1.02 [facility] Comment on above: Performed By: #### T SH, BNP, CMP, T7, LIPID #### [facility] [address] [place] [address] Dr. Eusebia Moralez EGFR-AF BELGIAN 41 mL/min/1.73m2 Critically low >=60 [facility] Comment on above: Performed By: #### T SH, BNP, CMP, T7, LIPID #### [facility] [address] [place] [address] Dr. Eusebia Moralez EGFR-NON AF BELGIAN 34 mL/min/1.73m2 Critically low >=60 [facility] Comment on above: Performed By: #### T SH, BNP, CMP, T7, LIPID #### [facility] [address] [place] [address] Dr. Eusebia Moralez Globulin (S) [Mass/Vol] 3.5 g/dL Normal [facility] Comment on above: Performed By: #### T SH, BNP, CMP, T7, LIPID #### [facility] [address] [place] [address] Dr. Eusebia Moralez Glucose [Mass/Vol] 129 mg/dL Critically high 74-106 [facility] Comment on above: Performed By: #### T SH, BNP, CMP, T7, LIPID #### [facility] [address] [place] [address] Dr. Eusebia Moralez Potassium [Moles/Vol] 4.7 mmol/L Normal 3.5-5.1 [facility] Comment on above: Performed By: #### T SH, BNP, CMP, T7, LIPID #### [facility] [address] [address] [address] Eusebia Moralez Protein [Mass/Vol] 6.8 g/dL Normal 6.4-8.2 [facility] Comment on above: Performed By: #### T SH, BNP, CMP, T7, LIPID #### [facility] [address] [address] [address] Eusebia Moralez Sodium [Moles/Vol] 141 mmol/L Normal 136-145 [facility] Comment on above: Performed By: #### T SH, BNP, CMP, T7, LIPID #### [facility] [address] [address] [address] Eusebia Moralez Urea nitrogen [Mass/Vol] 37.0 mg/dL Critically high 7.0-18.0 [facility] Comment on above: Performed By: #### T SH, BNP, CMP, T7, LIPID #### [facility] [address] [address] [address] Eusebia Moralez Urea nitrogen/Creatinine [Mass ratio] 24.5 mg/mg Normal [facility] Comment on above: Performed By: #### T SH, BNP, CMP, T7, LIPID #### [facility] [address] [address] [address] Eusebia Moralez TSHon 01-14-2022 TSH 0.068 uIU/mL Critically low 0.358-3.740 [facility] Comment on above: Performed By: #### T SH, BNP, CMP, T7, LIPID ####[facility] [address] [address]Dr. Eusebia Moralez Covid-19 PCR (CVDTB)on 10-13 SARS-CoV-2 (COVID-19) RNA DEREK+probe Ql (Unsp spec) Not detected Normal NOT DETECTED [facility] Comment on above: Result Comment: This test is not yet approved or cleared by the [place] FDA. When there are no FDA-approved or cleared tests available, and other criteria are met, FDA can make tests available under an emergency access mechanism called an Emergency Use Authorization (EUA). The EUA for this test is supported by the [employer] Assistant of Health and Human Service's (HHS's) declaration [...] consistent with SARS-CoV-2. Performed By: #### [facility] ####[facility] [place], [place] [address]Na. Eusebia Moralez MRI LSPINE WO CONon 10-11-19 [...] AMBAR MAYA Date: 2021-10-10 07:29 Normal [facility] Pulmonary Progress Noteo n 09-13-2020 [facility] Pulmonary Progress Note [facility] Pt Name: VERO SADLER [facility] [address] MR#: [id number] [place] [address] ACCT: [id number] PROGRESS NOTE- Pulmonary : [facility] Date of Service: 09/13/20 Text NAME: VERO SADLER MR#: [id number] DATE OF SERVICE: 09/13/2020 OUTPATIENT PULMONARY PROGRESS [...] disease, severity unknown. We will try to [facility] Pt Name: VERO SADLER [address] [place] [address] MR#: [id number] [place] [address] ACCT: [id number] PROGRESS NOTE- Pulmonary : [facility] [...] postoperative management if needed. TIM TOSCANO MD DI/MODL/[id number] 2 CC: Dr. Rito Guerrero MD [facility] Date and Time Tim Toscano MD Signature on File 09/26/20 1046 Normal [facility] GLYCO HEMOon 08-23-2020 HbA1c (Bld) [Mass fraction] 5.3 % Normal [facility] Comment on above: Result Comment: Milagro vidal Diagnosis HbA1c (%) --------- Diabetic > 6.4 Prediabetes 5.7-6.4 Normal < 5.7 Performed By: #### L 500.66070 #### Test performed at: [address] [address] CBC W/DIFFon 08-22-2020 BASO ABS 0.0 K/uL Normal 0.0-0.2 [facility] Comment on above: Performed By: #### L 200.63797 #### Test performed at: [place] [id number] Basophils/100 WBC (Bld) 0.5 % Normal [facility] Comment on above: Performed By: #### L 200.37887 #### Test performed at: [place] [id number] EOS ABS 0.1 K/uL Normal 0.0-0.5 [facility] Comment on above: Performed By: #### L 200.95126 #### Test performed at: [address] [address] Eosinophils/100 WBC (Bld) 1.2 % Normal [facility] Comment on above: Performed By: #### L 200.53063 #### Test performed at: [address] [address] Erythrocyte distribution width (RBC) [Ratio] 12.8 % Normal 11.5-14.5 [facility] Comment on above: Performed By: #### L 200.80494 #### Test performed at: [address] [address] Hematocrit (Bld) [Volume fraction] 40.1 % Normal 36.0-48.0 [facility] Comment on above: Performed By: #### L 200.99600 #### Test performed at: [address] [address] Hemoglobin (Bld) [Mass/Vol] 12.4 g/dL Normal 12.0-15.0 [facility] Comment on above: Performed By: #### L 200.89455 #### Test performed at: [place] [address] IG % 0.3 % Normal [facility] Comment on above: Performed By: #### L 200.59268 #### Test performed at: [place] [address] IG ABS 0.02 K/uL Normal 0-0.05 [facility] Comment on above: Performed By: #### L 200.26071 #### Test performed at: [place] [address] Lymphocytes (Bld) [#/Vol] 1.3 10*3/uL Normal 1.2-3.5 [facility] Comment on above: Performed By: #### L 200.68044 #### Test performed at: [place] [address] Lymphocytes/100 WBC (Bld) 16.9 % Normal [facility] Comment on above: Performed By: #### L 200.02895 #### Test performed at: [address] [address] MCH (RBC) [Entitic mass] 29.0 pg Normal 25.4-34.6 [facility] Comment on above: Performed By: #### L 200.87160 #### Test performed at: [address] [address] MCHC (RBC) [Mass/Vol] 30.9 g/dL Low 31.5-36.5 [facility] Comment on above: Performed By: #### L 200.25230 #### Test performed at: [address] [address] MCV (RBC) [Entitic vol] 93.7 fL Normal 79.0-98.0 [facility] Comment on above: Performed By: #### L 200.38075 #### Test performed at: [address] [address] MONO ABS 0.8 K/uL Normal 0.0-1.0 [facility] Comment on above: Performed By: #### L 200.50674 #### Test performed at: [address] [address] Monocytes/100 WBC (Bld) 9.7 % Normal [facility] Comment on above: Performed By: #### L 200.44113 #### Test performed at: [place] [address] NEUTROPHIL ABS 5.5 K/uL Normal 1.4-6.6 [facility] Comment on above: Performed By: #### L 200.18403 #### Test performed at: [address] [address] Neutrophils/100 WBC (Bld) 71.4 % Normal [facility] Comment on above: Performed By: #### L 200.15480 #### Test performed at: [place] [address] NRBC # 0.000 K/uL Normal 0-0.012 [facility] Comment on above: Performed By: #### L 200.72745 #### Test performed at: [place] [address] NRBC % 0.0 /100 WBC Normal 0-0.2 [facility] Comment on above: Performed By: #### L 200.45257 #### Test performed at: [address] [address] Platelet mean volume (Bld) [Entitic vol] 10.1 fL Normal 8.7-12.4 [facility] Comment on above: Performed By: #### L 200.43762 #### Test performed at: [address] [address] Platelets (Bld) [#/Vol] 236 10*3/uL Normal 140-440 [facility] Comment on above: Performed By: #### L 200.52877 #### Test performed at: [address] [address] RBC (Bld) [#/Vol] 4.28 10*6/uL Normal 3.5-5.5 [facility] Comment on above: Performed By: #### L 200.78077 #### Test performed at: [address] [address] WBC (Bld) [#/Vol] 7.7 10*3/uL Normal 3.9-11.0 [facility] Comment on above: Performed By: #### L 200.69818 #### Test performed at: [address] [address] CHEST PA/AP & LATERAL OR 2 V WSon 08-22-2020 CHEST PA/AP & LATERAL OR 2 VWS STUDY: CHEST PA/AP LATERAL OR 2 VWS; 08/22/2020 2:35 pm INDICATION: COPD. COMPARISON: None. ACCESSION NUMBER(S): [id number] ORDERING CLINICIAN: Ovidio Baez FINDINGS: The lungs are clear without pleural effusion. Borderline cardiomegaly. Otherwise unremarkable mediastinum, eron, and pulmonary vasculature. Thoracic degenerative changes are present. IMPRESSION: No active disease in the chest. Normal [facility] COMP META PANELon 08-22-2020 Albumin [Mass/Vol] 3.4 g/dL Normal 3.4-5.0 [facility] Comment on above: Performed By: #### L 500.65054, L500.78683, L500.63490 #### Test performed at: [address] [address] ALK PHOS TOTAL 88 U/L Normal 45-117 [facility] Comment on above: Performed By: #### L 500.07317, L500.91270, L500.20081 #### Test performed at: [address] [address] ALT [Catalytic activity/Vol] 17 U/L Normal 13-61 [facility] Comment on above: Performed By: #### L 500.98865, L500.68510, L500.85655 #### Test performed at: [address] [address] AST [Catalytic activity/Vol] 12 U/L Low 15-37 [facility] Comment on above: Performed By: #### L 500.48490, L500.28882, L500.98469 #### Test performed at: [address] [address] BILI TOTAL 0.5 mg/dL Normal 0.2-1.0 [facility] Comment on above: Performed By: #### L 500.75973, L500.65804, L500.36896 #### Test performed at: [address] [address] Calcium [Mass/Vol] 9.0 mg/dL Normal 8.5-10.1 [facility] Comment on above: Performed By: #### L 500.64815, L500.12224, L500.15554 #### Test performed at: [address] [address] Chloride [Moles/Vol] 107 mmol/L Normal 98-107 [facility] Comment on above: Performed By: #### L 500.74113, L500.99211, L500.60189 #### Test performed at: [address] [address] CO2 [Moles/Vol] 29 mmol/L Normal 21-32 [facility] Comment on above: Performed By: #### L 500.38168, L500.53876, L500.19003 #### Test performed at: [address] [address] Creatinine [Mass/Vol] 1.280 mg/dL High 0.550-1.020 [facility] Comment on above: Performed By: #### L 500.69912, L500.70857, L500.02877 #### Test performed at: [address] [address] Glucose [Mass/Vol] 90 mg/dL Normal 70-99 [facility] Comment on above: Result Comment: Fast ing GLUCOSE reference range has been updated per (ADA) [place] [employer]'s recommendation. 06/07/2018 Performed By: #### L 500.71752, L500.24207, L500.05412 #### Test performed at: [address] [address] Potassium [Moles/Vol] 4.4 mmol/L Normal 3.5-5.1 [facility] Comment on above: Performed By: #### L 500.20300, L500.86885, L500.92100 #### Test performed at: [address] [address] Protein [Mass/Vol] 6.8 g/dL Normal 6.4-8.2 [facility] Comment on above: Performed By: #### L 500.70875, L500.34818, L500.94434 #### Test performed at: [address] [address] Sodium [Moles/Vol] 142 mmol/L Normal 136-145 [facility] Comment on above: Performed By: #### L 500.47867, L500.71441, L500.67055 #### Test performed at: [place] [address] Urea nitrogen [Mass/Vol] 21 mg/dL High 7-18 [facility] Comment on above: Performed By: #### L 500.60514, L500.99144, L500.95585 #### Test performed at: [place] [address] GFR ESTIMATEon 08-22-2020 IF AMER 50 Low [...] for clinical interpretation. Performed By: #### L 500.23833, L500.91070, L500.73337 #### Test performed at: [place] [address] IF non-AFR AMER 41 Low > 60 [facility] Comment on above: Performed By: #### L 500.02446, L500.39711, L500.82932 #### Test performed at: [address] [address] TSH ULTRA SENSon 08-22-2020 TSH ULTRA SENS < 0.005 Low 0.358-3.74 [facility] Comment on above: Performed By: #### L 500.18410, L500.58440, L500.91500 #### Test performed at: [place] [address] LUMB SP COMP W FLEX/EXT 6 VW Son 07-23-2020 LUMB SP COMP W FLEX/EXT 6 VWS STUDY: LUMB SP COMP W FLEX/EXT 6 VWS ; 07/23/2020 9:01 am INDICATION: PAIN. COMPARISON: None. ACCESSION NUMBER(S): [id number] ORDERING CLINICIAN: Sacha Guerrero FINDINGS: No fracture [...] of the lumbar spine without instability. Normal [facility] Vital Signs Date Time Vital Sign Value Performing Clinician Facility 07-19-2024 14:20-0400 Diastolic blood pressure 60 mm[Hg] Debbie Bhatia MD Work Phone: [facility] 07-19-2024 14:20-0400 Heart rate 67 /min Debbie Bhatia MD Work Phone: [facility] 07-19-2024 14:20-0400 Respiratory rate 18 /min Debbie Bhatia MD Work Phone: [facility] 07-19-2024 14:20-0400 SaO2% (BldA) [Mass fraction] 98 % Debbie Bhatia MD Work Phone: [facility] 07-19-2024 14:20-0400 Systolic blood pressure 132 mm[Hg] Debbie Bhatia MD Work Phone: [facility] 07-19-2024 11:23-0400 Body height 162.56 cm Debbie Bhatia MD Work Phone: [facility] 07-19-2024 11:23-0400 Body weight 133.81 kg Debbie Bhatia MD Work Phone: [facility] 07-13-2024 10:50-0400 Blood Pressure Location ROSETTA ZAMUDIOANSAH-AMANKRA [facility] 07-13-2024 10:50-0400 Diastolic blood pressure 82 mm[Hg] ROSETTA NKANSAH-AMANKRA [facility] 07-13-2024 10:50-0400 Heart rate 74 /min ROSETTA NKANSAH-AMANKRA [facility] 07-13-2024 10:50-0400 SaO2% (BldA) [Mass fraction] 94 % ROSETTA NKANSAH-AMANKRA [facility] 07-13-2024 10:50-0400 Systolic blood pressure 170 mm[Hg] ROSETTA NKANSAH-AMANKRA [facility] 07-13-2024 09:45-0400 Blood Pressure Location ROSETTA NKANSAH-AMANKRA [facility] 07-13-2024 09:45-0400 Body temperature 97.34 [degF] ROSETTA NKANSAH-AMANKRA [facility] 07-13-2024 09:45-0400 Diastolic blood pressure 78 mm[Hg] ROSETTA NKANSAH-AMANKRA [facility] 07-13-2024 09:45-0400 Heart rate 67 /min ROSETTA NKANSAH-AMANKRA [facility] 07-13-2024 09:45-0400 Mean blood pressure 109 mm[Hg] ROSETTA NKANSAH-AMANKRA [facility] 07-13-2024 09:45-0400 Respiratory rate 13 /min ROSETTA NKANSAH-AMANKRA [facility] 07-13-2024 09:45-0400 SaO2% (BldA) [Mass fraction] 93 % ROSETTA NKANSAH-AMANKRA [facility] 07-13-2024 09:45-0400 Systolic blood pressure 170 mm[Hg] ROSETTA NKANSAH-AMANKRA [facility] 07-13-2024 09:44-0400 SaO2% (BldA) [Mass fraction] 91 % ROSETTA NKANSAH-AMANKRA [facility] 07-13-2024 09:30-0400 Respiratory rate 13 /min ROSETTA NKANSAH-AMANKRA [facility] 07-13-2024 09:30-0400 Heart rate 68 /min ROSETTA NKANSAH-AMANKRA [facility] 07-13-2024 09:30-0400 Blood Pressure Location ROSETTA NKANSAH-AMANKRA [facility] 07-13-2024 09:30-0400 Diastolic blood pressure 71 mm[Hg] ROSETTA NKANSAH-AMANKRA [facility] 07-13-2024 09:30-0400 Mean blood pressure 98 mm[Hg] ROSETTA NKANSAH-AMANKRA [facility] 07-13-2024 09:30-0400 Systolic blood pressure 153 mm[Hg] ROSETTA NKANSAH-AMANKRA [facility] 07-13-2024 09:25-0400 Respiratory rate 18 /min ROSETTA NKANSAH-AMANKRA [facility] 07-13-2024 09:25-0400 Mean blood pressure 98 mm[Hg] ROSETTA NKANSAH-AMANKRA [facility] 07-13-2024 09:20-0400 Respiratory rate 12 /min ROSETTA NKANSAH-AMANKRA [facility] 07-13-2024 09:15-0400 Body temperature 97.16 [degF] ROSETTA NKANSAH-AMANKRA [facility] 07-13-2024 09:15-0400 Respiratory rate 12 /min ROSETTA NKANSAH-AMANKRA [facility] 07-13-2024 07:27-0400 Mean blood pressure 113 mm[Hg] ROSETTA NKANSAH-AMANKRA [facility] 07-13-2024 07:26-0400 Mean blood pressure 121 mm[Hg] ROSETTA NKANSAH-AMANKRA [facility] 07-13-2024 07:24-0400 Respiratory rate 20 /min ROSETTA NKANSAH-AMANKRA [facility] 07-13-2024 07:24-0400 Body temperature 97.7 [degF] ROSETTA NKANSAH-AMANKRA [facility] 06-27-2024 11:14-0400 Body height 160.[address] [facility] 06-27-2024 11:14-0400 Body mass index (BMI) [Ratio] 53 kg/m2 [facility] 06-27-2024 11:14-0400 Body temperature 97.6 [degF] [facility] 06-27-2024 11:14-0400 Body weight 135.[address] [facility] 06-27-2024 11:14-0400 Diastolic blood pressure 77 mm[Hg] [facility] 06-27-2024 11:14-0400 Heart rate 101 /min [facility] 06-27-2024 11:14-0400 Respiratory rate 18 /min [facility] 06-27-2024 11:14-0400 SaO2% (BldA) [Mass fraction] 93 % [facility] 06-27-2024 11:14-0400 Systolic blood pressure 157 mm[Hg] [facility] 06-26-2024 13:31-0400 Heart rate 67 /min ROSETTAVIVIANE SOSAAH-AMANKRA [facility] 06-26-2024 13:31-0400 SaO2% (BldA) [Mass fraction] 94 % ROSETTA NKANSAH-AMANKRA [facility] 06-26-2024 13:30-0400 Respiratory rate 20 /min ROSETTA SOSAAH-AMANKRA [facility] 06-20-2024 09:36-0400 Body height 162.6 cm John Mathews MD Work Phone: [facility] 06-20-2024 09:36-0400 Body mass index (BMI) [Ratio] 50.46 kg/m2 Jhon Mathews MD Work Phone: [facility] 06-20-2024 09:36-0400 Body weight 133.36 kg John Mathews MD Work Phone: [facility] 06-20-2024 09:36-0400 Diastolic blood pressure 78 mm[Hg] John Mathews MD Work Phone: [facility] 06-20-2024 09:36-0400 Systolic blood pressure 175 mm[Hg] John Mathews MD Work Phone: [facility] 05-09-2024 08:38-0500 Body height 162.6 cm John Mathews MD Work Phone: [facility] 05-09-2024 08:38-0500 Body mass index (BMI) [Ratio] 50.81 kg/m2 John Mathews MD Work Phone: [facility] 05-09-2024 08:38-0500 Body weight 134.26 kg John Mathews MD Work Phone: [facility] 05-09-2024 08:38-0500 Diastolic blood pressure 90 mm[Hg] John Mathews MD Work Phone: [facility] Sports Medicine 05-09-2024 08:38-0500 Heart rate 87 /min John Mathews MD Work Phone: [facility] 05-09-2024 08:38-0500 Systolic blood pressure 170 mm[Hg] John Mathews MD Work Phone: [facility] 03-31-2024 14:50-0500 Blood Pressure Location ROSETTA NKANSAH-AMANKRA [facility] 03-31-2024 14:50-0500 Diastolic blood pressure 82 mm[Hg] ROSETTA NKANSAH-AMANKRA [facility] 03-31-2024 14:50-0500 Heart rate 86 /min ROSETTA NKANSAH-AMANKRA [facility] 03-31-2024 14:50-0500 Respiratory rate 16 /min ROSETTA NKANSAH-AMANKRA [facility] 03-31-2024 14:50-0500 Systolic blood pressure 152 mm[Hg] ROSETTA NKANSAH-AMANKRA [facility] 01-06-2024 13:02-0400 Body height 162.[address] [facility] 01-06-2024 13:02-0400 Body mass index (BMI) [Ratio] 50.5 kg/m2 [facility] 01-06-2024 13:02-0400 Body temperature 96.3 [degF] [facility] 01-06-2024 13:02-0400 Body weight 133.[address] [facility] 01-06-2024 13:02-0400 Diastolic blood pressure 90 mm[Hg] [facility] 01-06-2024 13:02-0400 Heart rate 81 /min [facility] 01-06-2024 13:02-0400 Respiratory rate 18 /min [facility] 01-06-2024 13:02-0400 SaO2% (BldA) [Mass fraction] 98 % [facility] 01-06-2024 13:02-0400 Systolic blood pressure 179 mm[Hg] [facility] Encounters Encounter Date Encounter Type Care Provider Facility Start: 08-21-2024 ambulatory ROSETTA KAROLYNCHRIS Facility:[facility] Start: 07-19-2024 Non-patient / Non-visit Yong Bhatia MD Work Phone: [facility] Work Phone: Start: 07-19-2024 End: 07-19-2024 Admission to same day surgery center Debbie Bhatia MD Work Phone: [facility] Work Phone: Start: 07-19-2024 End: 07-19-2024 ambulatory Debbie Bhatia MD Work Phone: [facility] Work Phone: Start: 07-18-2024 ambulatory [facility] Start: 07-13-2024 End: 07-13-2024 Admission to same day surgery center ROSETTA MENDEZ [facility] Start: 07-13-2024 End: 07-13-2024 ambulatory ROSETTA CHANO [facility] Start: 06-27-2024 End: 06-27-2024 ambulatory [facility] Work Phone: Start: 06-27-2024 End: 06-27-2024 Patient encounter procedure [facility] Work Phone: Start: 06-26-2024 End: 06-26-2024 Clinisync Result Encounter John Mathews MD Work Phone: [facility] Unsolicited Start: 06-26-2024 End: 06-26-2024 Clinisync Result Encounter John Mathews MD Work Phone: [facility] Unsolicited Start: 06-26-2024 End: 06-26-2024 ambulatory ROSETTA MENDEZ [facility] Start: 06-26-2024 End: 06-26-2024 Patient encounter procedure ROSETTA MENDEZ [facility] Start: 06-20-2024 End: 06-20-2024 Bamboo flowsheet John Mathews MD Work Phone: [facility] Start: 06-20-2024 End: 06-20-2024 Bamboo flowsmone Mathews MD Work Phone: [facility] Start: 06-20-2024 Non-patient / Non-visit [facility] Work Phone: Start: 06-20-2024 End: 06-20-2024 Office outpatient visit 25 minutes John Mathews MD Work Phone: [facility] Comment on above: OME (otitis media wi th effusion), right (Primary Dx); ETD (Eustachian tube dysfunction), right; 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 Start: 06-20-2024 End: 06-20-2024 ambulatory JOHN MATHEWS Not Available Start: 05-19-2024 End: 05-19-2024 ambulatory ROSETTA MENDEZ Facility:[facility] Start: 05-09-2024 End: 05-09-2024 Bamboo flowsheet John Mathews MD Work Phone: [facility] Start: 05-09-2024 End: 05-09-2024 Bamboo flowsheet John Mathews MD Work Phone: [facility] Start: 05-09-2024 End: 05-09-2024 Clinisync Result Encounter John Mathews MD Work Phone: [facility] External [facility] Unsolicited Start: 05-09-2024 End: 05-09-2024 ambulatory [facility] Start: 05-09-2024 End: 05-09-2024 Office outpatient new 45 minutes John Mathews MD Work Phone: [facility] Comment on above: OME (otitis media wi th effusion), right (Primary Dx); Nonintractable headache, unspecified chronicity pattern, unspecified headache type Start: 05-09-2024 End: 05-09-2024 ambulatory JOHN MATHEWS Not Available Start: 05-05-2024 End: 05-05-2024 ambulatory ROSETTA MENDEZ Facility:[facility] Start: 05-05-2024 End: 05-05-2024 Patient encounter procedure ROSETTA MENDEZ [facility] Start: 05-01-2024 End: 05-01-2024 ambulatory Cande Garcia MD Facility:[facility] Start: 03-31-2024 End: 03-31-2024 ambulatory Debbie Bhatia Facility:[facility] Start: 03-31-2024 End: 03-31-2024 Patient encounter procedure ROSETTA MENDEZ [facility] Start: 02-22-2024 ambulatory ROSETTA MENDEZ Facility: [facility] Start: 02-14-2024 End: 02-14-2024 ambulatory Cande Garcia MD Facility:[facility] Start: 02-08-2024 End: 02-08-2024 ambulatory JOSEY [facility] Start: 01-26-2024 End: 01-26-2024 ambulatory TATO SALCIDO [facility] Start: 01-06-2024 End: 01-06-2024 ambulatory [facility] Work Phone: Start: 01-06-2024 End: 01-06-2024 Patient encounter procedure [facility] [place] Work Phone: Start: 11-23-2023 End: 11-23-2023 Encounter for other specified special examinations RYAN López [facility] Start: 11-23-2023 End: 11-23-2023 ambulatory RYAN López [facility] Start: 10-26-2023 End: 10-26-2023 ambulatory JOSEY KOCKO [facility] Start: 07-17-2022 End: 07-18-2022 ambulatory JOSEY [...] End: 10-28-[address] DEBBIE BHATIA . Facility: Start: 10-09-2021 End: 10-10-[address] DEBBIE BHATIA . Facility:[facility] Start: 08-12-2021 End: 08-12-[address] DEBBIE BHATIA . Facility:[facility] Start: 07-28-[address] DEBBIE BHATIA . Facili ty:[facility] Start: 09-29-2016 End: 09-30-2016 Ambulatory DEFAULT PHYSICIAN Facility:[facility] Procedures Date Procedure Procedure Detail Performing Clinician Start: 07-19-2024 Colonoscopy Debbie caceres MD Work Phone: Start: 07-13-2024 Cystoscopy ROSETTA NK MILO-AMANKRA Start: 06-26-2024 [facility] APTT John wells MD Work Phone: Start: 06-26-2024 [facility] PROTHROMBIN T DES INR W/O COUM John Mathews MD Work Phone: Start: 05-19-2024 Flexible cystoscope (physical object) ROSETTA NKANSAH-AMANKRA Start: 05-09-2024 Radex sinuses parana roland compl minimum 3 views John Mathews MD Work Phone: Start: 02-09-2023 End: 02-09-2023 Colonoscopy ROSETTA NKANSAH-JUSTINA KRA Start: 07-06-2018 Colonoscopy ROSETTA NK MILO-AMANKRA Cataract extraction and insertion of intraocular lens ROSETTA NKANSAH-AMANKRA ft (qualifier value) ROSETTA NKANSAH-AMANKRA H/O: hysterectomy ROSETTA NK MILO-AMANKRA Hysterectomy ROSETTA NKANSAH -AMANKRA Procedure ROSETTA NKANSAH -AMANKRA [facility] Plan of Treatment Date Care Activity Detail Author Start: 02-09-2033 Screening for malign ant neoplasm of colon [facility] Start: 11-13-2024 Influenza vaccination Influenz a Vaccine (Season Ended) [facility] Start: 08-09-2024 End: 08-09-2024 Patient encounter procedure 08/09/2024 9:40 AM EDT Office Visit [facility] [address] [place] [address] John Mathews MD [address] [place] [address] [facility] Start: 07-19-2024 End: 07-19-2024 [facility] Start: 06-20-2024 End: 06-20-2024 Patient encounter procedure [facility] Comment on above: Arrived Start: 05-09-2024 End: 05-09-2024 Patient encounter procedure 05/09/2024 8:40 AM EST Office Visit [facility] [address] [place] [address] John Mathews MD [address] [place] [address] Arrived [facility] Comment on above: Arrived Start: 11-14-2023 Influenza vaccination Influenza Vacc ine (#1) [facility] Start: 02-20-2016 Pneumococcal Vaccine : 65+ Years (1 of 1 - PCV) Pneumococcal Vaccine: 65+ Years (1 of 1 - PCV) [facility] Start: 2001 Pneumococcal Vaccine : 65+ Years (1 of 1 - PCV) Pneumococcal Vaccine: 65+ Years (1 of 1 - PCV) [facility] Start: 1991 Screening for malign ant neoplasm of breast Mammogram [facility] Start: 1950 Screening for malign ant neoplasm of colon [facility] Immunofixation for Urine [facility] Patient Education Hemorrhoids Co shreya polyps Diverticulosis Know your Meds [facility] Work Phone: Renal function 2000 panel - Serum or Plasma [facility] Renal function 1999 panel - Serum or Plasma [facility] Immunizations Immunization Date Immunization Notes Care Provider Fa dimaty 01-07-2021 SARS-CoV-2 (COVID-19 ) mRNA BNT-162b2 vax ROSETTA [employer]-AMANKRA [facility] [place] 12-17-2020 SARS-CoV-2 (COVID-19 ) mRNA BNT-162b2 vax ROSETTA NKANSAH-AMANKRA [facility] Payers Date Payer Category Payer Self-pay 2024 Unknown 2022 Medicare [id number] 2018 Private Health Insurance 2013 Medicare 1959 Medicare [id number] 1959 Unknown [id number] 1950 Unknown [id number] 2.16.84 0.1.228828.3.579.2.593 1951 Unknown [id number] 2.16.84 0.1.228758.3.579.2.593 1951 Unknown [id number] 2.16.84 0.1.041077.3.579.2.593 1951 Unknown [id number] 2.16.84 0.1.583988.3.579.2.593 1951 Unknown [id number] 2.16.84 0.1.901153.3.579.2.593 1951 Unknown [id number] 2.16.84 0.1.542410.3.579.2.593 1951 Unknown [id number] 2.16.84 0.1.762527.3.579.2.593 1951 Unknown [id number] 2.16.84 0.1.749240.3.579.2.593 1951 Unknown [id number] 2.16.84 0.1.090909.3.579.2.593 1951 Unknown [id number] 2.16.84 0.1.446900.3.579.2.593 1951 Unknown [id number] 2.16.84 0.1.368310.3.579.2.593 1951 Unknown [id number] 2.16.84 0.1.549921.3.579.2.593 1951 Unknown [id number] 2.16.84 0.1.364709.3.579.2.593 1951 Unknown [id number] 2.16.84 0.1.665444.3.579.2.593 1951 Unknown [id number] 2.16. 840.1.123429.3.579.2.196 1951 Unknown [id number] 2.16. 840.1.085753.3.579.2.196 1951 Unknown [id number] 2.16.84 0.1.233072.3.579.2.1259 1951 Unknown [id number] 2.16.84 0.1.153591.3.579.2.1259 1951 Unknown [id number] 2.16.8 40.1.970777.3.579.2.727 1951 Unknown [id number] 2.16.8 40.1.148910.3.579.2.727 1950 Unknown [id number] 2.16.8 40.1.953324.3.579.2.727 1950 Unknown [id number] 2.16.8 40.1.672523.3.579.2.727 1951 Unknown [id number] 2.16.8 40.1.415184.3.579.2.727 1950 Unknown [id number] 2.16.8 40.1.994867.3.579.2.727 Unknown [id number] Unknown [id number] 04.30.8 40.1.020322.3.579.2.531 Social History Date Type Detail Facility Start: 01-06-2024 End: 07-19-2024 Tobacco smoking status NHIS Ex-smoker (finding) [facility] Start: 1950 Sex Assigned At Female [facility] Tobacco smoking status Never [facility] Start: 05-09-2024 End: 06-20-2024 Sex Assigned At Female [facility] Tobacco smoking stat [facility] Tobacco smoking consumption unknown [facility] Start: 1950 Sex assigned at Not on file [facility] Start: 05-09-2024 Tobacco smoking stat [facility] Never smoked tobacco [facility] Start: 05-09-2024 Tobacco use and exposure Smokeless tobacco non-user [facility] Start: 05-09-2024 End: 06-20-2024 Alcoholic beverage intake Ex-drinker (finding) [facility] Start: 05-09-2024 End: 06-20-2024 History of Social function [facility] Tobacco [facility] Comment on above: quit in 2009 Tobacco smoking status [facility] Start: 07-09-2016 End: 07-19-2024 Sex Female (finding) [facility] Goals Date Patient Goal Desired Activity /State Functional Status Date Assessment Result Facility 06-26-2024 Functional Status No [facility] 03-31-2024 Functional Status N/A [facility] Clinical Notes 10-26-2023 to 07-19-2024 Note Date & Type Note Facility 07-19-2024 Procedure note [facility] 07-19-2024 History and physi magnolia note [facility] 07-15-2024 Note Progress Note-Physic stacy Patient: VERO SADLER Age: 74 years Sex: Female : 1950 Associated Diagnoses: None Author: Pedro Walden MD Postoperative Information Postoperative disposition: Postoperative disposition: To PACU. Optimetrix number: Optimetrix number [id number]. Anesthetic utilized: General. Health Status Allergies: Allergic Reactions (Selected) Severity Not Documented Adhesive Bandage- Hives. Physical Examination VS/Measurements Pain Assessment: Controlled. General: Awake, Appropriate. Respiratory: Adequate air exchange. Cardiovascular: Stable. Neurological Assessment Anesthetic outcome No anesthetic complications noted. Adequate pain relief. Review / Management Condition: Stable. Plan Transfer/Discharge: Transfer/Discharge Discharge when meets criteria ( To home ). [facility] Comment on above: Result Comment: Elec tronically Signed By: Pedro Walden MD\.br\Date and Time Signed: 07/15/24 16:46 EDT 07-13-2024 Hospital Discharge instructions Patient Education 07/13/2024 10:40:08 Post Op Patient Instructions - FT (CUSTOM) Follow Up Care 05/19/2024 09:13:05 With:ROSETTA MENDEZ Address:Unknown When: Unknown Comments:1 month [facility] 07-13-2024 Note Patient Education - Text [facility] 07-13-2024 Note Progress Note-Physic stacy Patient: VERO SADLER Age: 74 years Sex: Female : 1950 Associated Diagnoses: None Author: Pedro Walden MD Preoperative Information Anesthesia Preop Info: Time patient last ate or drank 07/13/2024 00:00:00. Anesthesia history: Patient history: slow to wake. Family history+: None. Informed consent: Signed by patient. Re-evaluation prior to induction: Initial evaluation reviewed: No significant change. Review of Systems Eye Ear/Nose/Mouth/Throat Respiratory: No shortness of breath, No cough, No wheezing. Cardiovascular: No chest pain, No palpitations, No syncope. Gastrointestinal: No heartburn. Musculoskeletal Neurologic Health Status Allergies: Allergic Reactions (Selected) Severity Not Documented Adhesive Bandage- Hives., Allergies (1) Active Severity Reaction Adhesive Bandage Hives Current medications: (Selected) Documented Medications Documented Albuterol (Eqv-ProAir HFA): 2 puff(s), Inhalation, q4hr Shortness of breath or wheezing, Refill(s) 0 Cytomel 25 mcg Tab: 37.5 mcg = 1.5 tab(s), Oral, Daily, Refills(s) [address] Tab: 40 mg = 1 tab(s), Oral, BID, Control of stomach acid albuterol 0.083% Inh Viviana 3 mL: 2.5 mg, 3 mL, NEB, QID Shortness of breath or wheezing, Refill(s) 0 aspirin 81 mg Oral EC Tab: 81 mg = 1 tab(s), Oral, Daily, Refills(s) 0 betamethasone-clotrimazole Top 0.05%-1% Crm 15 gram: Refill(s) 0 bumetanide 1 mg Tab: 1 mg = 1 tab(s), Oral, Daily, Refills(s) 0 carvedilol 25 mg Tab: 12.5 mg = 0.5 tab(s), Oral, BID, Refills(s) 0 hydrALAZINE 100 mg oral tablet: 100 mg = 1 tab(s), Oral, TID, Refills(s) 0 levothyroxine 88 mcg (0.088 mg) oral capsule: 88 mcg = 1 cap(s), Oral, Daily, Refills(s) 0, Thyroid lisinopril 10 mg Tab: 10 mg = 1 tab(s), Oral, Daily, Refills(s) 0, High blood pressure lovastatin 20 mg Tab: 20 mg = 1 tab(s), Oral, Daily, Refills(s) 0, Home Medications (12) Active Albuterol (Eqv-ProAir HFA) 2 puff(s), PRN, Inhalation, q4hr albuterol 0.083% Inh Viviana 3 mL 2.5 mg = 3 mL, PRN, NEB, QID aspirin 81 mg Oral EC Tab 81 mg = 1 tab(s), Oral, Daily betamethasone-clotrimazole Top 0.05%-1% Crm 15 gram bumetanide 1 mg Tab 1 mg = 1 tab(s), Oral, Daily carvedilol 25 mg Tab 12.5 mg = 0.5 tab(s), Oral, BID Cytomel 25 mcg Tab 37.5 mcg = 1.5 tab(s), Oral, Daily hydrALAZINE 100 mg oral tablet 100 mg = 1 tab(s), Oral, TID levothyroxine 88 mcg (0.088 mg) oral capsule 88 mcg = 1 cap(s), Oral, Daily lisinopril 10 mg Tab 10 mg = 1 tab(s), Oral, Daily lovastatin 20 mg Tab 20 mg = 1 tab(s), Oral, Daily Pantoprazole [address] Tab 40 mg = 1 tab(s), Oral, BID , No qualifying data available Problem list: All Problems Aspirin long-term use / SNOMED CT 8858215302 / Confirmed Atrial fibrillation / SNOMED CT 45292912 / Confirmed Bradycardia / SNOMED CT 56109108 / Confirmed CAD (coronary artery disease) / SNOMED CT 51621693 / Confirmed Chronic kidney disease due to hypertension.. / SNOMED CT 0304673818 / Confirmed Chronic kidney disease stage 3A. / SNOMED CT 2607182058 / Confirmed Chronic kidney disease stage 4 / SNOMED CT 0094731161 / Confirmed Chronic kidney disease, stage 3 / SNOMED CT 7716777585 / Confirmed Chronic obstructive pulmonary disease / SNOMED CT 03833428 / Confirmed Former smoker / SNOMED CT 61848378 / Confirmed History of colon polyps / SNOMED CT 4387116619 / Confirmed History of operative procedure on lumbar spinal structure / SNOMED CT 2879819372 / Confirmed History of tobacco abuse / SNOMED CT 5922333846 / Confirmed Hypercholesterolemia / SNOMED CT 33397795 / Confirmed Hyperkalemia / SNOMED CT 83405505 / Confirmed Hypertension / SNOMED CT 8698825754 / Confirmed Hypertensive disorder / SNOMED CT 0941508357 / Confirmed Hypothyroidism / SNOMED CT 66698916 / Confirmed Morbid obesity / SNOMED CT 941934872 / Confirmed Multiple pulmonary nodules / SNOMED CT 3192871746 / Confirmed Pulmonary hypertension / SNOMED CT 055399984 / Confirmed Spinal stenosis / SNOMED CT 888738656 / Confirmed Stress incontinence, female / SNOMED CT 227564874 / Confirmed Canceled: Kidney stones / SNOMED CT 661337225 pt denies, Active Problems (23) Aspirin long-term use Atrial fibrillation Bradycardia CAD (coronary artery disease) Chronic kidney disease due to hypertension.. Chronic kidney disease stage 3A. Chronic kidney disease stage 4 Chronic kidney disease, stage 3 Chronic obstructive pulmonary disease Former smoker History of colon polyps History of operative procedure on lumbar spinal structure History of tobacco abuse Hypercholesterolemia Hyperkalemia Hypertension Hypertensive disorder Hypothyroidism Morbid obesity Multiple pulmonary nodules Pulmonary hypertension Spinal stenosis Stress incontinence, female Histories Past Medical History: No active or resolved past medical history items have been selected or recorded. Fam (more content not included)... [facility] Comment on above: Result Comment: Elec tronically Signed By: Pedro Walden MD\.br\Date and Time Signed: 07/13/24 08:41 EDT 07-12-2024 Evaluation + Plan note Extrac lani from: Title:ANES Pre-operative Note 2022 Author:Pedro Villalpando Date:07/12/24 Plan [place] [employer] (ASA) physical status classification: Class III. Anesthetic Preoperative Plan: Anesthesia Monitored anethesia care. [facility] 04-15-2025 Evaluation note* Diagnosis Onset Date Resolution Status Admit Date Anemia of renal disease acute A pril 2024 10:58am CKD (chronic kidney disease) stage 4, GFR 15-29 ml/min acute June 27, 2024 10:58am Hyperkalemia acute June 27, 2024 10:58am Hyperlipidemia acute June 10:58am Hypertensive chronic kidney disease with stage 1 through stage 4 chronic ki acute June 27, 2024 10:58am Hyperuricemia acute June 27, 2024 10:58am Hypomagnesemia acute June 10:58am Secondary hyperparathyroidism acute June 27, 2024 10:58am [facility] Work Phone: 1(817) 843-530904-08-2025 History of Present illness Narrative* John Mathews MD - 06/20/2024 9:40 AM EDT Subjective Patient ID: Vero Sadler is a 74 y.o. female who presents for Ear Problem (6 week check ears/ sinus XR [facility] 05/09/24) Still can't hear from RT ear Review of Systems All other systems reviewed and are negative. No family history on file. Active Ambulatory Problems Diagnosis Date Noted A-fib ([facility]) 04/21/2022 Chest pain 07/27/2016 CKD (chronic kidney disease) stage 4, GFR 15-29 ml/min ([facility]) 01/26/2024 Clinical trial exam 04/23/2022 Dyspnea 07/27/2016 Edema 07/27/2016 Essential hypertension ([facility]) 01/25/2020 Fatigue 07/27/2016 Hyperkalemia 01/26/2024 Lightheadedness 07/27/2016 Lower abdominal pain 01/30/2022 Nonsustained paroxysmal ventricular tachycardia ([facility]) 11/30/2022 Obstructive sleep apnea syndrome 10/02/2022 Other secondary pulmonary hypertension 12/15/2022 Secondary hyperparathyroidism ([facility]) 01/26/2024 Spinal stenosis of lumbar region with neurogenic claudication 01/30/2022 Spondylosis of lumbosacral region without myelopathy or radiculopathy 01/30/2022 Symptomatic bradycardia 01/01/2023 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 VT (ventricular tachycardia) ([facility]) 04/29/2022 Aspirin long-term use 05/09/2024 CAD (coronary artery disease) ([facility]) 05/09/2024 Chronic obstructive pulmonary disease ([facility]) 05/09/2024 Former smoker 05/09/2024 History of colon polyps 05/09/2024 History of tobacco abuse 05/09/2024 Hypercholesterolemia ([facility]) 05/09/2024 Hypothyroidism ([facility]) 05/09/2024 Kidney stones 05/09/2024 Morbid obesity ([facility]) 05/09/2024 Multiple pulmonary nodules 05/09/2024 Stage 3a chronic kidney disease (HCC) ([facility]) 01/31/2024 Status post lumbar spine operation [...] mcg by mouth in the morning. Take beforemeals. liothyronine (Cytomel) 25 MCG tablet Take 1.5 [...] Hold ASA 10d preop documented in this encounterFreeman [facility] & Sports [id number] NotePatient Education Obstetrics and Gynecology Kegel Exercises Kegel [...] muscles. These are the same muscles you squeezewhen you try to stop the flow of [...] provider. Document Revised: 07/10/2021 Document Reviewed: 07/10/2021 All Copy Products Patient Education ? 2023 [email or web address] 05-09-2024 NoteUT Cardiology Consult Note Reason for visit: follow up after [...] kidney disease COPD (chronic obstructive pulmonary disease) ([facility]) Hypertension Myocardial infarction ([facility]) Obstructive sleep apnea 10/02/2022 SOBIA=17.7 events/hour; Pranav SaO2=76%; Somasx=750.0 lbs; BMI=52.7 kg/m2, Home Sleep Apnea Testing on 09/25/2022 at [facility] PSH: Past Surgical History: Procedure Laterality Date CARDIAC CATHETERIZATION COLONOSCOPY 02/09/2023 EYE SURGERY CATARACT FOOT SURGERY Right tendon repair HYSTERECTOMY INSERT / REPLACE / REMOVE PACEMAKER 01/12/2023 OTHER SURGICAL HISTORY Bilateral 05/31/2023 S1 TFESI - 20% pain relief SH: Social Determinants of Health Tobacco Use: Low Risk (05/09/2024) Received from [facility] Patient History Smoking Tobacco Use: Never Smokeless [...] Transportation Needs (01/05/2023) Tr (more content not included)...[facility]02-[facility] History of Present illness Narrative* John Mathews MD - 05/09/2024 8:40 AM EST Subjective Patient ID: Vero Sadler is a 74 y.o. female who presents for Ear Problem (Audio 05/04/24 mackenzie ) Pt had the flu 4 weeks ago and now unable to hear on the RT. Also has RT LAMBERT. No tx yet per pt. 05/04audio shows moderate to severe right mixed HL with a flat tymp. Review of Systems All other systems reviewed and are negative. No family history on file. Active Ambulatory Problems Diagnosis Date Noted A-fib ([facility]) 04/21/2022 Chest pain 07/27/2016 CKD (chronic kidney disease) stage 4, GFR 15-29 ml/min ([facility]/HCC) 01/26/2024 Clinical trial exam 04/23/2022 Dyspnea 07/27/2016 Edema 07/27/2016 Essential hypertension (CMS/HCC) 01/25/2020 Fatigue 07/27/2016 Hyperkalemia 01/26/2024 Lightheadedness 07/27/2016 Lower abdominal pain 01/30/2022 Nonsustained paroxysmal ventricular tachycardia (CMS/HCC) 11/30/2022 Obstructive sleep apnea syndrome 10/02/2022 Other secondary pulmonary hypertension (CMS/HCC) 12/15/2022 Secondary hyperparathyroidism ([facility]/HCC) 01/26/2024 Spinal stenosis of lumbar region with neurogenic claudication 01/30/2022 Spondylosis of lumbosacral region without myelopathy or radiculopathy 01/30/2022 Symptomatic bradycardia 01/01/2023 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[facility]/HCC) 01/05/2023 VT (ventricular tachycardia) ([facility]) 04/29/2022 Aspirin long-term use 05/09/2024 CAD (coronary artery disease) ([facility]) 05/09/2024 Chronic obstructive pulmonary disease ([facility]) 05/09/2024 Former smoker 05/09/2024 History of colon polyps 05/09/2024 History of tobacco abuse 05/09/2024 Hypercholesterolemia ([facility]) 05/09/2024 Hypothyroidism ([facility]) 05/09/2024 Kidney stones 05/09/2024 Morbid obesity ([facility]) 05/09/2024 Multiple pulmonary nodules 05/09/2024 Stage 3a chronic kidney disease (HCC) ([facility]) 01/31/2024 Status post lumbar spine operation [...] mcg by mouth in the morning. Take beforemeals. liothyronine (Cytomel) 25 MCG tablet Take 1.5 [...] to eval sinuses as possible cause of LAMBERT. documented in this encounterFreeman [facility] & Sports [id number] Hospital Discharge instructions Follow Up Care 04/12/2024 08:02:27 With:ROSETTA MENDEZ MD, URL Address: When: Unknown [facility] 01-17-2025 Hospital Discharge instructions Patient Education 03/31/2024 15:09:50 [...] including vitamins, herbs, eye drops, creams, and vdrj-uhf-kfamdjy medicines. Any problems you or family members [...] provider tells you to take them. Taking jjou-eds-yziroau medicines, vitamins, herbs, and supplements. Tests You [...] Follow these instructions at home: Medicines Take ppkf-dtb-nukpnav and prescription medicines only as told by your health care provider. If you were prescribed an antibiotic medicine, take it as told by your health care provider. Do notstop taking the antibiotic even if you start [...] blood in your urine increases, call your healthcare provider. Follow instructions from your health care provider about eating or drinking restrictions. If a tissue sample was removed for testing (biopsy) during your procedure, it is up to you to get your test results. Ask your health care provider, or the department that is doing the test, when yourresults will be ready. Drink enough fluid to [...] blood in your urine increases, call your healthcare provider. If you were prescribed an antibiotic medicine, take it as told by your health care provider. Do notstop taking the antibiotic even if you start to feel better. This information is not intended to replace advice given to you by your health care provider. Make sure you discuss any questions you have with your health care provider. Document Revised: 11/12/2021 Document Reviewed: 10/11/2020 [employer] Patient Education 2023 [email or web address]. 03/31/2024 15:09:42 Injection Treatments for Urinary Incontinence [...] including vitamins, herbs, eye drops, creams, and xtbb-ayv-jpptidi medicines. Any problems you or family members [...] provider tells you to take them. Taking qnyn-kbu-rrhofxa medicines, vitamins, herbs, and supplements. General instructions [...] the room. These images will be used tohelp guide the procedure. A long needle will [...] blood oxygen level will be monitored until youleave the hospital or clinic. If you have [...] you pass urine. The muscle that normally keepsurine from leaking may be weak. Urinary incontinence [...] provider. Document Revised: 10/04/2020 Document Reviewed: 10/04/2020 [employer] Patient Education 2023 [email or web address]. 03/31/2024 15:09:34 Kegel Exercises Kegel Exercises Kegel [...] muscles. These are the same muscles you squeezewhen you try to stop the flow of [...] tight lift in your rectal area. If youare a female, you should also feel a [...] provider. Document Revised: 07/10/2021 Document Reviewed: 07/10/2021 [employer] Patient Education 2023 [employer] Follow Up Care 02/22/2024 14:36:40 With:ROSETTA MENDEZ MD, URL Address: When: Unknown [facility] 01-17-2025 NotePatient Education Obstetrics and Gynecology Kegel Exercises Kegel [...] muscles. These are the same muscles you squeezewhen you try to stop the flow of [...] provider. Document Revised: 07/10/2021 Document Reviewed: 07/10/2021 [employer] Patient Education ? 2023 [email or web address]. Urology Cystoscopy Cystoscopy is a procedure that [...] including vitamins, herbs, eye drops, creams, and yxxm-cwe-zcrckhn medicines. ??? Any problems you or family [...] tells you to take them. ??? Taking zlnv-icu-igwqmkv medicines, vitamins, herbs, and supplements. Tests You may have an exam or testing, such as: ??? X-rays of the bladder, urethra, or kidneys. ??? CT scan of the abdomen or pelvis. ??? Urine tests to check for signs of infection. General instructions ??? Follow instructions fr (more content not included)...[facility]11-13-2024 NoteCUT OFF CLINIC Cardiology Clinic Note Chief Complaint: Patient is here today for follow up [facility] ED visit. She was [...] Disp: 479 g, Rfl (more content not included)...[facility]08-13-2024 NoteUT Cardiology Consult Note Reason for visit: follow up after [...] sleep apnea 10/02/2022 SOBIA=17.7 events/hour; Pranav SaO2=76%; Yjiuka=608.0 lbs; BMI=52.7 kg/m2, Home Sleep Apnea Testing on 09/25/2022 at [facility] PSH: Past Surgical History: Procedure Laterality [...] Allergies Allergen Reactions Penicillins (more content not included)...[facility] Evaluation + Plan note No data available for this section [facility] Evaluation + Plan note Future Appointments Appointment Date:07/13/2024 09:00:00 AM Scheduled Provider: Location:[facility] Appointment Type:Surgery FT [facility] Evaluation note* Diagnosis Onset Date Resolution Status CKD (chronic kidney disease) stage 4, GFR 15-29 ml/min acute Hyperkalemia acute [id number] acute Secondary hyperparathyroidism acute Chronic kidney disease nonea ctive [facility] Work Phone: Evaluation note* Diagnosis OME (otitis media with effusion), right- Primary Nonintractable headache, unspecified chronicity pattern, unspecified headache type documented in this encounter [facility] HealthcareEvaluation note* Diagnosis OME (otitis media with effusion), right- Primary ETD (Eustachian tube dysfunction), right 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 documented in this encounter [facility]* Diagnosis Onset Date Resolution Status Admit Date Anemia of renal disease acute A pril 2024 10:58am CKD (chronic kidney disease) stage 4, GFR 15-29 ml/min acute June 27, 2024 10:58am Hyperkalemia acute June 27, 2024 10:58am Hyperlipidemia acute June 10:58am Hypertensive chronic kidney disease with stage 1 through stage 4 chronic ki acute June 27, 2024 10:58am Hyperuricemia acute June 27, 2024 10:58am Hypomagnesemia acute June 10:58am Secondary hyperparathyroidism acute June 27, 2024 10:58am [facility] Work Phone: History and physical note Author Kal Molina [facility] Note Date/Time July 19, 2024 1:20pm [facility] [address] [place] [address] Gastroenterology H&P Signed Patient: Vero Sadler MR#: [id number] : 1950 Acct:[id number] Age/Sex: 74 / F Adm Date: 5 Loc: Room: Type: [facility] Attending Dr: Kal Molina MD Copies to: MD Kal Bernard MD~ Date of Service: 07/19/2024 HISTORY & PHYSICAL: Patient's history with special attention to the cardiovascular, pulmonary systems and the current problem was reviewed with the patient immediately prior to the procedure. Present medications and doses reviewed in the EMR. Allergies and pertinent laboratory tests were also reviewedat this time in the EMR. The physical examination, as below, was then performed. Indication, assessment and HPI: 74-year-old female with history of colonic polyps and family history of colon cancer(both parents) here for colonoscopy forevaluation of rectal bleeding Family history of GI malignancy? Yes PHYSICAL EXAMINATION General appearance: NAD Skin: No jaundice Head: NC/AT Eyes: Anicteric Neck: Supple Lungs: Normal respiratory effort, no use of accessory muscles Abdomen: nondistended Neuro: Ox3. REVIEW OF SYSTEMS Constitutional: Denies malaise, fevers Cardiovascular: Denies chest pain, palpitations Respiratory: Denies shortness of breath, wheezing Gastrointestinal: As per HPI Genitourinary: Denies dysuria, polyuria Musculoskeletal: Denies joint swelling, joint stiffness Neurological: Denies confusion, numbness, tingling Endocrine: Denies fatigue Written informed consent obtained from the patient. Risks (including but not limited to perforation, infection, bloating, bleeding, need for emergent surgeryand loss of life), benefits and alternatives explained and questions answered. The patient verbalized understanding. Based on history patient is an appropriate candidate for the procedure. Kal Molina M.D. Documented By: Kal Molina MD 07/19/24 1319 Signed By: <Electronically signed by Kal Molina MD> 07/19/24 1320 [facility] Work Phone: Hospital Discharge instructions No data available for this section [facility] Progress note No data available for this section [facility] Summary Purpose Family History No Family History Records Found Relationship Condition Age at Onset Recorded Date/T des father Malignant neoplasm Unknown mother Abscess of intestine due to Crohn's disease Unknown Malignant neoplasm Unknown Relationship Condition Age at Onset Recorded Date/T des father Malignant neoplasm of colon Unknown Hypertension Unknown mother Malignant neoplasm of rectum Unknown Heart disease Unknown Abscess of intestine due to Crohn's disease Unknown Presence of cardiac pacemaker Unknown Ulcerative colitis Unknown daughter Malignant neoplasm of pancreas Unknown Advance Directives No Advanced Directives Records Found Advance Directive Response Recorded Date/ Time Advance Directives No January 06, 2024 12:45pm Chief Complaint and Reason for Visit Chief Complaint RENAL CKD 3 Reason for Visit CKD (chronic kidney disease) stage 4, GFR 15-29 ml/min Hyperkalemia [id number] Secondary hyperparathyroidism Chronic kidney disease Chief Complaint Admit Date RENAL 4 MONTH F/U June 27, 2024 10: 58am Reason for Visit Admit Date Anemia of renal disease June 27, 2024 10:58am CKD (chronic kidney disease) stage 4, GF R 15-29 ml/min June 27, 2024 10:58am Hyperkalemia June 27, 2024 10: 58am Hyperlipidemia June 27, 2024 10: 58am Hypertensive chronic kidney disease with stage 1 through stage 4 chronic ki June 27, 2024 10:58am Hyperuricemia June 27, 2024 10: 58am Hypomagnesemia June 27, 2024 10: 58am Secondary hyperparathyroidism June 10:58am Chief Complaint Admit Date RENAL 4 MONTH F/U June 27, 2024 10: 58am rectal bleeding July 19, 2024 11:10a m rectal bleeding July 19, 2024 1:19pm Additional Source Comments INFORMATION SOURCE (unrecogn ized section and content) DATE CREATED AUTHOR 09/08/2017 [facility] DATE CREATED AUTHOR AUTHOR'S ORGANIZ ATION 09/27/2020 [facility] DATE CREATED AUTHOR AUTHOR'S ORGANIZ ATION 07/24/2022 [facility] DATE CREATED AUTHOR AUTHOR'S ORGANIZ ATION 05/06/[address] [facility] DATE CREATED AUTHOR AUTHOR'S ORGANIZ ATION 06/21/2024 [facility] DATE CREATED AUTHOR AUTHOR'S ORGANIZ ATION 06/27/2024 [facility] DATE CREATED AUTHOR AUTHOR'S ORGANIZ ATION 07/21/2024 [facility] DATE CREATED AUTHOR AUTHOR'S ORGANIZ ATION 07/26/2024 [facility] DATE CREATED AUTHOR AUTHOR'S ORGANIZ ATION 07/26/2024 [facility] [employer] Care Teams (unrecognized sec tion and content) Team Status: Active Member Role Status Dates Debbie Bhatia MD Primary Care Provider Active Team Status: Active Member Role Status Dates Debbie Bhatia MD Primary Care Provider Active Start: June 20, 2024 Lizette Schaffer MD Attending Provider Active Start : June 20, 2024 Team Status: Inactive Member Role Status Dates Debbie Bhatia MD Primary Care Provider Active Start: June 27, 2024 End: June 27, 2024 Lizette Schaffer MD Attending Provider Active Start : June 27, 2024 End: June 27, 2024 Team Status: Inactive Member Role Status Dates Debbie Bhatia MD Primary Care Provide r, Referring Provider Active Start: January 06, 2024 End: January 06, 2024 Lizette Schaffer MD Attending Provider Active Start : January 06, 2024 End: January 06, 2024 [employer] Relationship Specialty Start Date End Date Debbie Bhatia MD [address] [place] [address] PCP - General Family Medicine 05/09/24 [employer] Relationship Specialty Start Date End Date Debbie Bhatia MD [address] [place] [address] PCP - General Family Medicine 05/09/24 [employer] Relationship Specialty Start Date End Date Debbie Bhatia MD [address] [place] [address] PCP - General Family Medicine 05/09/24 [employer] Relationship Specialty Start Date End Date Debbie Bhatia MD [address] [place] [address] PCP - General Family Medicine 05/09/24 Team Status: Inactive Member Role Status Dates Debbie Bhatia MD Primary Care Provider Active Start: July 19, 2024 End: July 19, 2024 Kal Molina MD Attending Provider Active Start: July 19, 2024 End: July 19, 2024 Team Status: Active Member Role Status Dates Debbie Bhatia MD Primary Care Provider Active Start: July 19, 2024 Kal Molina MD Attending Provider, Other Provider Act sim Start: July 19, 2024 Goals (unrecognized section and content) Goals may be documented in a n alternate section No data available for this section No data available for this section No data available for this sectionGoals may be documented in an alternate section No data available for this [...] BE BASED ON THE PRIMARY CLINICAL RECORDS. [facility] [employer] provides no warranty or guarantee of the accuracy or completeness of information in this document.
[2024-07-28 23:06] VITALS: PULSE 80
--- NOTE | 2024-07-28 23:07 | ECG_ITS ---
[facility] Test Date: 2024-07-28 Pat Name: JUSTIN COLLINS Department: Room: - Gender: Female [employer]: : 1950 Requested By: [id number] Order Number: [id number] Reading MD: LOVE RUBIO M.D. Measurements Intervals [place] Rate: 80 P: 92 IL: 180 QRS: 37 QRSD: 88 T: 27 QT: 402 QTc: 438 Interpretive Statements [id number] Electronic atrial pacemaker 9120 atypical ECG Compared to ECG 01/23/2024 17:12:55 No significant changes Electronically Signed On 07-29-2024 7:49:53 EDT by LOVE RUBIO M.D.
[2024-07-28 23:10] VITALS: BP 108/57; PULSE 78; TEMP 36.6; O2SAT 95; BMI 48.3
[2024-07-28 23:20] VITALS: PULSE 77; O2SAT 97
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
[2024-07-28 23:30] VITALS: PULSE 69; O2SAT 95
[2024-07-28 23:37] LABS: Basophils Percent Auto 0.4 % (0.2-2.0); Eosinophils Absolute Auto 0.1 10^3/uL (0.0-0.7); Eosinophils Percent Auto 1.7 % (0.9-7.0); Hematocrit 36.6 % (36.0-48.0); Hemoglobin 11.4 g/dL (12.0-16.0); Immature Granulocytes Abs Auto 0.02 10^3/uL (0.00-0.03); Immature Granulocytes Pct Auto 0.3 % (0.0-0.5); Lymphocytes Absolute Auto 1.4 10^3/uL (1.2-3.8); Lymphocytes Percent Auto 18.8 % (20.5-60.0); Mean Corpuscular HGB Conc 31.1 g/dL (29.9-35.2); Mean Corpuscular Hemoglobin 29.3 pg (26.7-34.0); Mean Corpuscular Volume 94.1 fL (81.0-99.0); Mean Platelet Volume 9.6 fL (9.5-13.5); Monocytes Absolute Auto 0.9 10^3/uL (0.3-0.8); Monocytes Percent Auto 12.4 % (1.7-12.0); Neutrophils Absolute Auto 4.8 10^3/uL (1.4-6.5); Neutrophils Percent Auto 66.4 % (43.0-75.0); Platelet Count 202 10^3/uL (150-450); Red Blood Count 3.89 10^6/uL (4.20-5.40); Red Cell Distribution Width 13.4 % (11.0-15.0); White Blood Count 7.2 10^3/uL (4.0-11.0)
[2024-07-28 23:40] VITALS: PULSE 107; O2SAT 94
[2024-07-28 23:54] LABS: Anion Gap 9.3; BUN Creatinine Ratio 18.1; Calcium 9.4 mg/dL (8.5-10.1); Carbon Dioxide 28.5 mmol/L (21.0-32.0); Chloride 108 mmol/L (98-107); Estimated GFR (African America 19 (>=60 mL/min/1.73m^2); Estimated GFR (Non-African Ame 16 (>=60 mL/min/1.73m^2); Glucose 110 mg/dL (74-106); Potassium 4.8 mmol/L (3.5-5.1); Sodium 141 mmol/L (136-145)
[2024-07-28 23:59] VITALS: O2SAT 96
[2024-07-29] VITALS (25 sets, daily range): BP systolic 118–155; BP diastolic 54–68; PULSE 61–74; TEMP 36.7; O2SAT 91–97; BMI 48.9
--- OUTSIDE RECORDS SUMMARY | 2024-07-29 03:03 | XMS_ITS | CCD ---
Author Organization [facility] Care Team Providers Care Blocking Machine Operator Name Role Phone PHYSICIAN, DEFAULT Unavailable Unavailable PHYSICIAN, DEFAULT Unavailable Unavailable DEBBIE BHATIA Unavailable Unavailable SRIRAM ., DR LEWIS Consulting Unavailable HOY ., DR LEWIS Attending Unavailable HOY ., DR LEWIS Primary Care Unavailable HOY ., DR LEWIS Admitting Unavailable GARFIELD, DR RAJI Odonnell Consulting Unavailable HOY ., [...] Unavailable HOY ., DR LEWIS Admitting Unavailable GARFIELD, DR RAJI Odonnell Consulting Unavailable Debbie Bhatia Primary Care Physician Radha BELTRÁN, Cande Venegas Attending Unavailable Radha BELTRÁN, Cande Venegas Attending Unavailable Debbie Bhatia MD Primary Care Provider JOHN MATHEWS Attending Unavailable DEBBIE BHATIA Referring Unavailable JOHN MATHEWS Attending Unavailable NKANSAH-AMANKRA, ROSETTA Attending Unavail able NKANSAH-AMANKRA, ROSETTA Attending Unavail able NKANSAH-AMANKRA, ROSETTA Referring Unavail able NKANSAH-AMANKRA, ROSETTA Admitting Unavail able NKANSAH-AMANKRA, ROSETTA Attending Unavail able Debbie Bhatia Referring Unavailable NKANSAH-AMANKRA, ROSETTA Attending Unavail able Debbie Bhatia MD Primary Care Provider Tracy BELTRÁN, Imjavier Attending Provider JOSEY KWOK Attending Unavailable TATO SALCIDO Attending Unavailable RYAN MEEHAN Referring Unavailable RYAN MEEHAN Referring Unavailable JOSEY KWOK Referring Unavailable JOSEY KWOK Referring Unavailable JOSEY KWOK Attending Unavailable NKANSAH-AMANKRA, ROSETTA Admitting Unavail able NKANSAH-AMANKRA, ROSETTA Referring Unavail able NKANSAH-AMANKRA, ROSETAT Attending Unavail able NKANSAH-AMANKRA, ROSETTA Admitting Unavail able NKANSAH-AMANKRA, ROSETTA Referring Unavail able NKANSAH-AMANKRA, ROSETTA Attending Unavail able ROSETTA MENDEZ Attending Unavail able Debbie Bhatia Primary Care Unavailable Asaad, Imjavier Attending Unavailable Asajavier, Imad Admitting Unavailable Allergies Allergy Classification Reported Allergen(s) Allergy Type Date of Onset Reaction(s) Facility (7 sources) Penicillins; Translations: [PENICILLINS] Drug allergy (disorder) 5 AOF, Unknown Reaction [facility] Repository Comment on above: yeast infection (4 sources) Adhesive Tape; Translations: [adhesive tape] Allergy to substance 4 skin rash [facility] (6 sources) Adhesive bandage; Translations: [Adhesive Bandage] Drug allergy Weal (disorder) [facility] (7 sources) Penicillins Drug Allergy 2 [facility] (1 source) Penicillins Drug allergy (disorder) 5 [facility] Repository Medications Current Medications Medication Drug Class(es) Dates Sig (Normalized) Sig (Original) [id number] 200 actuat albuterol 0.09 mg/actuat metered dose [...] day(s), # 10 cap(s), Refills(s) 0, Pharmacy: [facility]/pharmacy #[id number], 160.1, cm, 06/26/24 [...] day(s), # 9 tab(s), Refills(s) 0, Pharmacy: [facility]/pharmacy #[id number], 160.1, cm, 06/26/24 14:41:00 EDT, Height/Length Dosing, [...] February 14, 2024 12:04pm polyethylene glycol 3350 [id number] mg / potassium chloride 2970 mg / sodium bicarbonate 6740 mg / sodium chloride 5860 mg / sodium sulfate 22313 mg powder for oral solution (1 source) [...] Coronary arteriosclerosis; Translations: [Atherosclerotic heart disease of [place] coronary artery without angina pectoris] Onset: 5 [...] sources) Long-term current use of aspirin; Translations: [long term care phlebotomist (current) use of aspirin] Onset: 5 Episodic [...] object(s), not elsewhere classified, initial encounter; Translations: [[facility] OT SHRP OB NOT ELSW CLASS INI] [...] 08-12-2021 Episodic Other aftercare (1 source) 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 Scanned copy available in EMR. PERFORMED BY: [place] [address] PATHOLOGIST ASSOCIATE ARTISTIC DIRECTOR GENE BARRAGAN M.D. Performed By: #### P ATH TO [facility] #### [address] Main OR Intraoperative Recor don 07-14-2024 Main OR Intraoperative Record Main OR Intraoperative Record IntraOp Document Type FT Summary Primary Physician: NKROSETTA FELICIANO MD Finalized Date/Time: 07/14/24 10:37:22 Pt. Name: VERO SADLER./Sex: 1950 Female Med Rec #: [id number] Physician: ROSETTA MENDEZ MD Financial #: [id number] Pt. Type: A Room/Bed: [place] [address] Admit/Disch: 07/13/24 07:02:16 - 07/13/24 11:00:00 Institution: [...] Anesthesiologist Surgeon - Primary Scrub - Primary Licensing Services Clerk Time In 07/13/24 08:50:00 07/13/24 08:50:00 07/13/24 08:50:00 Time Out 07/13/24 09:14:00 07/13/24 09:14:00 07/13/24 09:14:00 Procedure BULKAMID PROCEDURE(.) BULKAMID PROCEDURE(.) BULKAMID PROCEDURE(.) Comments dr. walden unit supervisor Last Modified By: Andrew Holly Ii, Alfons Ii F Letrondo, Alfons Ii F 07/13/24 09:22:03 07/13/24 09:22:03 07/13/24 09:22:03 Entry 4 Case Attendee Andrew Holly Ii Role Performed Printed Circuit Board Preassembler - Primary Time In 07/13/24 08:50:00 Time [...] and tissue Entry 1 Skin Integrity Intact, Point Place, Warm, & Skin Abnormality No Dry Outcomes [...] Stirrup Posit (more content not included)... Normal [facility] Discharge Instructionson Discharge Instructions Discharge Instruc [...] 12 hours Duration: 5 Days Pickup at [facility]/pharmacy #[id number] New phenazopyridine (Pyridium 100 mg Tab) 1 Tablets By Mouth 3 times a day Duration: 3 Days Pickup at [facility]/pharmacy #[id number] Unchanged albuterol (Albuterol [...] Mouth 2 times a day Pharmacy Information [facility]/pharmacy #[id number]: [address], [place] [id number] [phone] Allergies Adhesive Bandage (Hives) Education Materials Common [...] signed up for this yet, please contact Ansira at [phone] to get signed up today. Patient Name: VERO SADLER I have received this information and my questions have been answered. Patient/Armature Connector Name: Patient/Armature Connector Signature: Relationship to Patient: Witness Name/Signature: Date: _ (more content not included)... Normal [facility] Comment on above: Result Comment: Elec tronically Signed By: Virgie BRODY, Patricia Obrien.shyam\Date and Time Signed: 07/13/24 10:41 EDT Main OR PACU I Recordon 05 Main OR PACU I Record Main OR PACU I Rec ord PACU Phase I Document Type FT Summary Primary Physician: ROSETTA MENDEZ MD Finalized Date/Time: 07/13/24 09:53:55 Pt. Name: SADLERVERO/Sex: 1950 Female Med Rec #: [id number] Physician: ROSETTA MENDEZ MD Financial #: [id number] Pt. Type: A Room/Bed: [place] [address] Admit/Disch: 07/13/24 07:02:16 - Institution: Case Times [...] By: Orin Richmond RN 07/13/24 09:53 Normal [facility] Main OR PACU II Recordon Main OR PACU II Record Main OR PACU II R ecord PACU Phase II Document Type FT Summary Primary Physician: ROSETTA MENDEZ MD Finalized Date/Time: 07/13/24 15:25:20 Pt. Name: VERO SADLER Tri/Sex: 1950 Female Med Rec #: [id number] Physician: ROSETTA MENDEZ MD Financial #: [id number] Pt. Type: A Room/Bed: AS18/ Admit/Disch: 07/13/24 [...] Signed By: Patricia Garvin RN 07/13/24 15:25 [facility] Main OR Preoperative Recordo n 07-13-2024 Main OR Preoperative Record Main OR Preoperative Record PreOp Document Type FT Summary Primary Physician: ROSETTA MENDEZ MD Finalized Date/Time: 07/13/24 09:04:45 Pt. Name: VERO SADLER/Sex: 1950 Female Med Rec #: [id number] Physician: ROSETTA MENDEZ MD Financial #: [id number] Pt. Type: A Room/Bed: [facility] Admit/Disch: 07/13/24 07:02:16 - Institution: Case Times [...] By: Andrew Holly Ii 07/13/24 09:04 Normal [facility] Operative Reporton Operative Report Operative Report Patient: VERO SADLER Age: 74 years Sex: Female : 1950 Associated Diagnoses: None Author: ROSETTA MENDEZ MD Procedure SURGEON: Rosetta Mendez MD PREOPERATIVE DIAGNOSIS: Stress urinary incontinence with , intrinsic sphincter deficiency POSTOPERATIVE DIAGNOSIS: Same PROCEDURE: Cystoscopy, injection of urethral bulking agent CPT 82372 FINDINGS: Urethra injected at 4 units packed [...] WEEKS. Needs to void before dc Normal [facility] Comment on above: Result Comment: Elec tronically Signed By: BRYAN BELTRÁN, ROSETTA\.shyam\Date and Time Signed: 07/13/24 10:17 EDT BMPon 06-26-2024 Anion gap [Moles/Vol] 11 mmol/L Normal 6-16 [facility] Comment on above: Performed By: #### 2 [id number] #### [facility] [address] [place] [address] Calcium [Mass/Vol] 9.1 mg/dL Normal 8.9-11.1 [facility] Comment on above: Performed By: #### 2 [id number] #### [facility] [address] [place] [address] Chloride [Moles/Vol] 107 mmol/L Normal 101-111 [facility] Comment on above: Performed By: #### 2 [id number] #### [facility] [address] [place] [address] CO2 [Moles/Vol] 26 mmol/L Normal 21-31 [facility] Comment on above: Performed By: #### 2 [id number] #### [facility] [address] [place] [address] Creatinine [Mass/Vol] 1.6 mg/dL High 0.5-1.3 [facility] Comment on above: Performed By: #### 2 [id number] #### [facility] [address] [place] [address] Glucose [Mass/Vol] 91 mg/dL Normal 55-199 [facility] Comment on above: Performed By: #### 2 [id number] #### [facility] [address] [place] [address] Potassium [Moles/Vol] 4.7 mmol/L Normal 3.5-5.3 [facility] Comment on above: Performed By: #### 2 [id number] #### [facility] [address] [place] [address] Sodium [Moles/Vol] 139 mmol/L Normal 135-145 [facility] Comment on above: Performed By: #### 2 [id number] #### [facility] [address] [place] [address] Urea nitrogen [Mass/Vol] 24 mg/dL High 5-21 [facility] Comment on above: Performed By: #### 2 [id number] #### [facility] [address] [place] [address] Urea nitrogen/Creatinine [Mass ratio] 15 No Units Normal 10-20 [facility] Comment on above: Performed By: #### 2 [id number] #### [facility] [address] [place] [address] CBC w/ Auto Diffon 5 Basophils/100 WBC (Bld) 1.2 % Normal 0.0-2.0 [facility] Comment on above: Performed By: #### 2 [id number] #### [facility] [address] [place] [address] Basophils/Leukocytes Auto (Bld) [Pure # fraction] 0.1 E9/L Normal 0.0-0.2 [facility] Comment on above: Performed By: #### 2 [id number] #### [facility] [address] [place] [address] Eosinophils (Bld) [#/Vol] 0.1 E9/L Normal 0.0-0.5 [facility] Comment on above: Performed By: #### 2 [id number] #### [facility] [address] [place] [address] Eosinophils/100 WBC (Bld) 1.6 % Normal 0.0-8.0 [facility] Comment on above: Performed By: #### 2 [id number] #### [facility] [address] [place] [address] Erythrocyte distribution width (RBC) [Ratio] 14.6 % High 10.9-14.2 [facility] Comment on above: Performed By: #### 2 460404 #### [facility] [address] [place] [address] Hematocrit (Bld) [Volume fraction] 34.0 % Normal 34.0-46.0 [facility] Comment on above: Performed By: #### 2 [id number] #### [facility] [address] [place] [address] Hemoglobin (Bld) [Mass/Vol] 11.2 g/dL Low 12.0-16.0 [facility] Comment on above: Performed By: #### 2 [id number] #### [facility] [address] [place] [address] Lymphocytes (Bld) [#/Vol] 1.2 E9/L Normal 1.0-4.0 [facility] Comment on above: Performed By: #### 2 585999 #### [facility] [address] [place] [address] Lymphocytes/100 WBC (Bld) 15.1 % Normal 14.0-50.0 [facility] Comment on above: Performed By: #### 2 796005 #### [facility] [address] [place] [address] MCH (RBC) [Entitic mass] 29.3 pg Normal 27.0-34.0 [facility] Comment on above: Performed By: #### 2 [id number] #### [facility] [address] [place] [address] MCHC (RBC) [Mass/Vol] 32.9 g/dL Normal 31.4-36.0 [facility] Comment on above: Performed By: #### 2 [id number] #### [facility] [address] [place] [address] MCV (RBC) [Entitic vol] 89.0 fL Normal 80.0-100.0 [facility] Comment on above: Performed By: #### 2 957992 #### [facility] [address] [place] [address] Monocytes (Bld) [#/Vol] 0.9 E9/L Normal 0.2-1.0 [facility] Comment on above: Performed By: #### 2 [id number] #### [facility] [address] [place] [address] Neutrophils (Bld) [#/Vol] 5.3 E9/L Normal 2.0-7.5 [facility] Comment on above: Performed By: #### 2 [id number] #### [facility] [address] [place] [address] Neutrophils/100 WBC (Bld) 69.9 % Normal 36.0-75.0 [facility] Comment on above: Performed By: #### 2 [id number] #### [facility] [address] [place] [address] Platelet 241.0 E9/L Normal 150.0-500.0 [facility] Comment on above: Performed By: #### 2 [id number] #### [facility] [address] [place] [address] Platelet mean volume (Bld) [Entitic vol] 7.6 fL Normal 6.4-10.8 [facility] Comment on above: Performed By: #### 2 135454 #### [facility] [address] [place] [address] RBC (Bld) [#/Vol] 3.8 E12/L Low 4.3-5.9 [facility] Comment on above: Performed By: #### 2 [id number] #### [facility] [address] [place] [address] WBC corrected for nucl RBC Auto (Bld) [#/Vol] 7.6 E9/L Normal 4.0-11.0 [facility] Comment on above: Performed By: #### 2 [id number] #### [facility] [address] [place] [address] [facility] APTTon 06-26-2024 aPTT Coag (Bld) [Time] 29.3 s NO IN [facility] CHEMISTRYOrdered By: SYSTEM SYSTEM on 06-26-2024 [...] 34.6 s Normal 25.1 - 36.5 second(s) [facility] Comment on above: Interpretive Data: [...] the same coagulation reagent and instrumentation as [facility]. Currently there are no coagulation studies available worldwide for children to 14 days, and no normal ranges. Heparin therapeutic range (represented by Anti-Factor Xa activity of 0.2 - 0.4 U/mL) corresponds to PTT of 56.6 - 109.0 sec. INR Coag (PPP) [Relative time] 1.16 {INR} Invalid Interpretation Code [facility] Comment on above: Interpretive Data: I NR results are specifically intended to assess patients stabilized on long-term Anticoagulation therapy suggested INR s Less Intensive Anticoagulation 2.0 3.0 Conventional Range 3.0 4.5 PT Coag (PPP) [Time] 13.0 s High 9.4 - 1 2.5 second(s) [facility] Comment on above: Interpretive Data: [...] the same coagulation reagent and instrumentation as [facility]. Currently there are no coagulation studies available [...] E9/L Remisol Heme No Panel Informationon 06-26 [facility] PT & PTTon 06-26-2024 aPTT Coag (PPP) [Time] 34.6 second(s) Normal 25.1-36.5 [facility] Comment on above: Result Comment: Para [...] the same coagulation reagent and instrumentation as [facility]. Currently there are no coagulation studies available worldwide for children to 14 days, and no normal ranges. Heparin therapeutic range (represented by Anti-Factor Xa activity of 0.2 - 0.4 U/mL) corresponds to PTT of 56.6 - 109.0 sec. Performed By: #### 1 [id number] #### [facility] [address] [place] [address] INR Coag (PPP) [Relative time] 1.16 {INR} Invalid Interpretation Code [facility] Comment on above: Result Comment: INR results are specifically intended to assess patients stabilized on long-term Anticoagulation therapy suggested INR???s ???Less Intensive Anticoagulation??? 2.0 ??? 3.0 Conventional Range 3.0 ??? 4.5 Performed By: #### 1 [id number] #### [facility] [address] [place] [address] PT Coag (PPP) [Time] 13.0 second(s) High 9.4-12.5 [facility] Comment on above: Result Comment: 15 [...] the same coagulation reagent and instrumentation as [facility]. Currently there are no coagulation studies available worldwide for children to 14 days, and no normal ranges. Performed By: #### 1 [id number] #### [facility] [address] [place] [address] [facility] PROTHROMBIN TIME INR W/O COUMon 06-26-2024 PT Coag (PPP) [Time] 11.4 s [facility] TB INR 1.08 [facility] Comment on above: DESIRED INR: 2.0-3.0 CONDITIONS NOT LISTED BELOW 2.5-3.5 FOR PROSTHETIC HEART VALVE REPLACEMENT 2.5-3.5 RECURRENT THROMBOSIS UA with Cult Rflxon 06-27-19 25 Bilirubin Ql (U) Negative Normal Negative [facility] Comment on above: Performed By: #### 4 [id number] #### [facility] [address] [place] [address] Clarity (U) Clear Normal Clear [facility] Comment on above: Performed By: #### 4 [id number] #### [facility] [address] [place] [address] Color (U) Yellow Normal Yellow [facility] Comment on above: Result Comment: Micr oscopic readings are only performed on those samples that meet specific criteria set forth by [facility]. Performed By: #### 4 [id number] #### [facility] [address] [place] [address] Glucose Ql (U) Negative Normal Negative [facility] Comment on above: Performed By: #### 4 [id number] #### [facility] [address] [place] [address] Hemoglobin Auto test strip (U) [Mass/Vol] Negative Normal Negative [facility] Comment on above: Performed By: #### 4 [id number] #### [facility] [address] [place] [address] Ketones Auto test strip Ql (U) Negative Normal Negative [facility] Comment on above: Performed By: #### 4 [id number] #### [facility] [address] [place] [address] Leukocyte esterase Auto test strip Ql (U) Negative Normal Negative [facility] Comment on above: Performed By: #### 4 [id number] #### [facility] [address] [place] [address] Nitrite Auto test strip Ql (U) Negative Normal Negative [facility] Comment on above: Performed By: #### 4 [id number] #### [facility] [address] [place] [address] pH (U) 5.0 [pH] Invalid Interpretation Code 5.0-9.0 [facility] Comment on above: Performed By: #### 4 [id number] #### [facility] [address] [place] [address] Protein Ql (U) Trace Abnormal Negative [facility] Comment on above: Performed By: #### 4 [id number] #### [facility] [address] [place] [address] Specific gravity (U) [Rel density] 1.016 Invalid Interpretation Code 1.005-1.030 [facility] Comment on above: Performed By: #### 4 [id number] #### [facility] [address] [place] [address] Urobilinogen (U) [Mass/Vol] Negative Normal Negative [facility] Comment on above: Performed By: #### 4 [id number] #### [facility] [address] [place] [id number] Type of Urine collection method Clean Catch Normal [facility] Comment on above: Performed By: #### 4 [id number] #### [facility] [address] [place] [id number] URINALYSISOrdered By: SYSTEM SYSTEM on 06-26-2024 Bilirubin Ql (U) Negative Normal Negativemg/ dL [facility] UA Auto SS Clarity (U) Clear (06/26/24 1:56 PM) Normal Clear [facility] UA Auto SS Color (U) Yellow 1 (06/26/24 1:56 PM) Normal Yellow [facility]A Auto SS Comment on above: Interpretive Data: M icroscopic readings are only performed on those samples that meet specific criteria set forth by [facility]. Glucose Ql (U) Negative Normal [...] PM) Invalid Interpretation Code 1.005 - 1.030 [facility] UA Auto SS Urobilinogen (U) [Mass/Vol] Negative Normal Negativemg/ dL [facility] UA Auto SS URINALYSISOrdered By: Grover Roberts on 06-26-2024 UA Spec Desc Clean Catch (06/26/24 1:56 PM) Normal [facility] UA Auto SS eGFRon 06-26-2024 eGFR 34 mL/min/1.73 m2 Low >=59 [facility] Comment on above: Performed By: #### 1 [id number] #### [facility] [address] [place] [address] Albumin [Mass/volume] in Ser um or Plasmaon 06-20-2024 Albumin [Mass/Vol] Albumin [Mass/volume ] in Serum or Plasma 2.9-4.4 [facility] IgA [Mass/volume] in Serum o r Plasmaon 06-20-2024 IgA [Mass/Vol] IgA [Mass/volume] in Serum or Plasma 64-422 [facility] IgG [Mass/volume] in Serum o r Plasmaon 06-20-2024 IgG [Mass/Vol] IgG [Mass/volume] in Serum or Plasma [phone] [facility] IgM [Mass/volume] in Serum o r Plasmaon 06-20-2024 IgM [Mass/Vol] IgM [Mass/volume] in Serum or Plasma 26-217 [facility] Immunofixation for Urineon 0 06-20-2024 Interpretation Immunofixation (U) [Interp] Immunofixation for Urine . [facility] Comment on above: No monoclonality det ected.Performed at: - [facility] [id number] Director: Jozef Medina PhD, Phone: [phone] Immunoglobulin light chains. kappa.free [Mass/volume] in Serumon 06-20-2024 Immunoglobulin light chains.kappa.free (S) [Mass/Vol] Immunoglobulin light chains.kappa.free [Mass/volume] in Serum Abnormal 3.3-19.4 [facility] Immunoglobulin light chains. kappa.free/Immunoglobulin light chains.lambda.free [Alexandra 06-20-2024 Immunoglobulin light chains.kappa.free/Immun oglobulin light chains.lambda.free (S) [Mass ratio] Immunoglobulin light chains.kappa.free/Immun oglobulin light chains.lambda.free [Mass Abnormal 0.26-1.65 [facility] Comment on above: Performed at: [facility] [address] [id number] Director: Jozef Medina PhD, Phone: [phone] Immunoglobulin light chains. lambda.free [Mass/volume] in Serum or Plasmaon 06-20-2024 Immunoglobulin light chains.lambda.free [Mass/Vol] Immunoglobulin light chains.lambda.free [Mass/volume] in Serum or Plasma Abnormal 5.7-26.3 [facility] Iron binding capacity [Mass/ volume] in Serum or Plasmaon 06-20-2024 Iron binding capacity [Mass/Vol] Iron binding capacity [Mass/volume] in Serum or Plasma Low 250.0-450.0 [facility] Iron saturation [Mass Fracti on] in Serum or Plasmaon 06-20-2024 Iron saturation [Mass fraction] Iron saturation [Mass Fraction] in Serum or Plasma [facility] - Chemistry and C hemistry - challengeon 06-20-2024 Ferritin [Mass/Vol] 147.0 ng/mL 8.0-252.0 [facility] Iron [Mass/Vol] 51.0 ug/dL 50.0-170.0 [facility] Magnesium [Mass/Vol] 1.6 mg/dL Low 1.8-2.4 [facility] Urate [Mass/Vol] 8.0 mg/dL High 2.6-6.0 [facility] - Urinalysison Protein (U) [Mass/Vol] 30.4 mg/dL High <=11.9 [facility] No Panel Informationon 06-20 25-Hydroxy Vitamin D Total 37.9 ng/mL [facility] Comment on above: <20 ng/mL Vit D defi cient20-<30 ng/mL Vit D iqclvaovmzld45-513 ng/mL Vit D sufficient>100 ng/mL Potential Toxicity Parathyroid Hormone (Intact) 43 pg/mL 15-65 [facility] Comment on above: Performed at: - [address] [id number] Director: Jozef Medina PhD, Phone: [phone] Phosphorus Level 3.7 mg/dL 2.6-4.7 [facility] Protein Electrophoresis M-Benjy Comment: g/dL Not Observed [facility] Comment on above: SPE shows an asymmet rical gamma. Protein Electrophoresis Note Comment . [facility] Comment on above: Protein electrophore sis scan will follow via computer,mail, or jack frame tender delivery. Urine Random Creatinine 127.97 mg/dL 20.0 0-300.0 0 [facility] Protein [Mass/volume] in Ser um or Plasmaon 06-20-2024 Protein [Mass/Vol] Protein [Mass/volume ] in Serum or Plasma 6.0-8.5 [facility] Serum globulin measurement ( mass/volume)on 06-20-2024 Globulin (S) [Mass/Vol] Serum globulin measurement (mass/volume) 2.2-3.9 [facility] Serum or plasma albumin/glob ulin mass ratioon 06-20-2024 Albumin/Globulin [Mass ratio] Serum or plasma albumin/globulin mass ratio 0.7-1.7 [facility] Serum or plasma alpha 1 glob ulin measurement by electrophoresis (mass/volume)on 06-20-2024 Alpha 1 globulin Elph [Mass/Vol] Serum or plasma alpha 1 globulin measurement by electrophoresis (mass/volume) 0.0-0.4 [facility] Serum or plasma alpha 2 glob ulin measurement by electrophoresis (mass/volume)on 06-20-2024 Alpha 2 globulin Elph [Mass/Vol] Serum or plasma alpha 2 globulin measurement by electrophoresis (mass/volume) 0.4-1.0 [facility] Serum or plasma beta globuli n measurement by electrophoresis (mass/volume)on 06-20-2024 Beta globulin Elph [Mass/Vol] Serum or plasma beta globulin measurement by electrophoresis (mass/volume) 0.7-1.3 [facility] Serum or plasma gamma globul in measurement by electrophoresis (mass/volume)on 06-20-2024 Gamma globulin Elph [Mass/Vol] Serum or plasma gamma globulin measurement by electrophoresis (mass/volume) 0.4-1.8 [facility] Serum or plasma immunoelectr ophoresis interpretationon 06-20-2024 Interpretation IEP [Interp] Serum or plasma immunoelectrophoresis interpretation . [facility] Comment on above: Presence of monoclon al protein is unclear at this time. Suggestrepeat in 3 to 6 months if clinically indicated. Urine protein/creatinine rat ioon 06-20-2024 Protein/Creatinine (U) [Ratio] Urine protein/creatinine ratio [facility] Urology Office/Clinic Noteon 05-19-2024 Urology Office/Clinic [...] for UCC. 4. Aspirin long-term use (Z79.82: care home (current) use of aspirin) ASA. No BTs. Has pacemaker. Hx of PR but was asx, not sure when it [...] with voice recognition artificial intelligence software, specifically Amarin, Liquid Grids and or edupristine. Substitutions may have occurred due to the [...] hypertension Spina (more content not included)... Normal [facility] Comment on above: Result Comment: Elec tronically Signed By: BRYAN BELTRÁN, ROSETTA\.br\Date and Time Signed: 05/19/24 09:40 EST\.br\Electronically Co-Signed By: Elvi Posadas\.br\Date and Time Co-Signed: 05/19/24 09:01 EST Office Visiton 05-09-2024 Follow-up visit [id number] Brian Sadler se 1950 F Date Provider Department Center 05/09/2024 JOSEY ARNOLD [facility] Family History Problem Relation Age of Onset Other Mother Coronary artery disease Mother Other Mother Other Mother Other Father Hypertension Father Hyperlipidemia Father Other Daughter Family Status - Relation Status Age at Mother Father Daughter Level of Service:06137 DE OFFICE/OUTPATIENT ESTABLISHED LOW MDM 20 MIN Normal [facility] XR Sinuses 3 [place] [facility] [address] [place] [address] XRay Report Signed Patient: VERO SADLER MR#: [id number] : 1950 Acct:[id number] Age/Sex: 74 / F ADM Date: 05/09/24 Loc: RAD Attending Dr: John Mathews M.D. Ordering Physician: John Mathews M.D. Date of Service: 05/09/24 Procedure(s): XR sinus min 3V Accession Number(s): [id number] cc: Debbie Bhatia M.D.; John Mathews M.D. The [address] [address] Patient Name: VERO SADLER MRN: [facility]:[id number] date: 1950 Sex: F Assigned Patient Location: RAD Current Patient Location: RAD Accession/Order Number: [id number] Exam Date: 05/09/2024 12:47 Report Date: 05/09/2024 [...] Kelly Lao M.D.05/09/2024 12:54 PM Dictation Location: [place] [address] Electronically authenticated by: [id number] Y Date: 05/09/2024 12:54 Dictated By: Kelly Lao M.D. Signed By: 05/09/24 1257 DD/ 1254 TD/TT: Principal Archaeologist: [facility] Radiology Radiologitto montemayor MD - 05/09/2024 The [place] [id number] XRay Report Signed Patient: VERO SADLER MR#: [id number] : 1950 Acct:[id number] Age/Sex: 74 / F ADM Date: 05/09/24 Loc: RAD Attending Dr: John Mathews M.D. Ordering Physician: Timmis,John M.D. Date of Service: 05/09/24 Procedure(s): XR sinus min 3V Accession Number(s): [id number] cc: Debbie Bhatia M.D.; John Mathews M.D. [place] [id number] Patient Name: VERO SADLER MRN: [id number] date: 1950 Sex: F Assigned Patient Location: [facility] Current Patient Location: RAD Accession/Order Number: [id number] Exam Date: 05/09/2024 12:47 Report Date: 05/09/2024 [...] Kelly Lao M.D.05/09/2024 12:54 PM Dictation Location: [place] [address] Electronically authenticated by: [id number] Y Date: 05/09/2024 12:54 Dictated By: Kelly Lao M.D. Signed By: 05/09/24 1257 DD/ 1254 TD/TT: Principal Archaeologist: [facility] [employer] Radiology Study observation (narrative) [facility] XR Sinuses 3 ViewsOrdered By : Radiologist Radiology on 05-09-2024 [facility] [employer] Work Phone: Ambulatory Visit Summaryon 0 03-31-2024 [...] a (more content not included)... Normal [facility] Urology Office/Clinic Noteon 03-31-2024 Urology [...] year old female new pt referred by eDbbie Bhatia for bladder prolapse. 1. Stress incontinence, [...] gross hematuria. 4. Aspirin long-term use (Z79.82: care home (current) use of aspirin) ASA. No BTs. Has pacemaker. Hx of PR but was asx, not sure when it [...] with voice recognition artificial intelligence software, specifically Amarin, Liquid Grids and or edupristine. Substitutions may have occurred due to the [...] due t (more content not included)... Normal [facility] Comment on above: Result Comment: Elec tronically Signed By: BRYAN BELTRÁN, ROSETTA\.br\Date and Time Signed: 03/31/24 15:13 EST\.br\Electronically Co-Signed By: Elvi Posadas\.br\Date and Time Co-Signed: 03/31/24 15:10 EST\.br\Electronically Co-Signed By: Elvi Posadas\.br\Date and Time Co-Signed: 03/31/24 15:10 EST Office Visiton 01-26-2024 Follow-up visit [id number] Brian Sadler se 1950 F Date Provider Department Center 01/26/2024 271-TATO SALCIDO [facility] Family History Problem Relation Age of Onset Other Mother Coronary artery disease Mother Other Mother Other Mother Other Father Hypertension Father Hyperlipidemia Father Other Daughter Family Status - Relation Status Age at Mother Father Daughter Level of Service:79429 DE OFFICE/OUTPATIENT ESTABLISHED LOW MDM 20 MIN Normal [facility] MR LUMBAR SPINE WO CONTRASTo n [...] foraminal narrowing. Electronically signed: Arnol Cutler MD. [facility] Comment on above: Order Comment: ORDER IN [employer] 11-23-2023 SANDIE Coughlin from [employer] prepped pacemaker. Patient verbalizes no issues with device. Monitor hooked up for continuous patient monitoring throughout the scan. Normal [facility] Office Visiton 10-26-2023 Follow-up visit [id number] Brian Sadler se 1950 F Date Provider Department Center 10/26/2023 JOSEY ARNLOD LEEANN [facility] Family History Problem Relation Age of Onset Other Mother Coronary artery disease Mother Other Mother Other Mother Other Father Hypertension Father Hyperlipidemia Father Other Daughter Family Status - Relation Status Age at Mother Father Daughter Level of Service:02426 DE OFFICE/OUTPATIENT ESTABLISHED LOW MDM 20 MIN Normal [facility] CBC AUTO DIFFon 07-17-2022 BASO # 0.0 103/ul Normal 0.0-0.1 [facility] Comment on above: Performed By: #### C BC #### [facility] [address] [place] [address] Dr. Eusebia Moralez Basophils/100 WBC (Bld) 0.6 % Normal 0.2-2.0 [facility] Comment on above: Performed By: #### C BC #### [facility] [address] [place] [address] Dr. Eusebia Moralez EO # 0.2 103/ul Normal 0.0-0.7 [facility] Comment on above: Performed By: #### C BC #### [facility] [address] [place] [address] Dr. Eusebia Moralez Eosinophils/100 WBC (Bld) 2.2 % Normal 0.9-7.0 [facility] Comment on above: Performed By: #### C BC #### [facility] [address] [place] [address] [address] Eusebia Moralez Erythrocyte distribution width (RBC) [Ratio] 13.0 % Normal 11.0-15.0 [facility] Comment on above: Performed By: #### C BC #### [facility] [address] [place] [address] Dr. Eusebia Moralez Hematocrit (Bld) [Volume fraction] 40.5 % Normal 36.0-48.0 [facility] Comment on above: Performed By: #### C BC #### [facility] [address] [place] [address] Dr. Eusebia Moralez Hemoglobin (Bld) [Mass/Vol] 12.7 g/dL Normal 12.0-16.0 [facility] Comment on above: Performed By: #### C BC #### [facility] [address] [place] [address] Dr. Eusebia Moralez IG # 0.02 10e3/ul Normal 0.00-0.03 [facility] Comment on above: Performed By: #### C BC #### [facility] [address] [place] [address] Dr. Eusebia Moralez IG % 0.3 % Normal 0.0-0.5 [facility] Comment on above: Performed By: #### C BC #### [facility] [address] [place] [address] Dr. Eusebia Moralez LYMPH # 1.4 103/ul Normal 1.2-3.8 [facility] Comment on above: Performed By: #### C BC #### [facility] [address] [place] [address] Dr. Eusebia Moralez Lymphocytes/100 WBC (Bld) 19.9 % Critically low 20.5-60.0 [facility] Comment on above: Performed By: #### C BC #### [facility] [address] [place] [address] Dr. Eusebia Moralez MANUAL DIFF REQ NO Normal [facility] Comment on above: Performed By: #### C BC #### [facility] [address] [place] [address] Dr. Eusebia Moralez MCH (RBC) [Entitic mass] 29.1 pg Normal 26.7-34.0 [facility] Comment on above: Performed By: #### C BC #### [facility] [address] [place] [address] Dr. Eusebia Moralez MCHC (RBC) [Mass/Vol] 31.4 g/dL Normal 29.9-35.2 [facility] Comment on above: Performed By: #### C BC #### [facility] [address] [place] [address] Dr. Eusebia Moralez MCV (RBC) [Entitic vol] 92.9 fL Normal 81.0-99.0 [facility] Comment on above: Performed By: #### C BC #### [facility] [address] [place] [address] Dr. Eusebia Moralez MONO # 0.7 103/ul Normal 0.3-0.8 [facility] Comment on above: Performed By: #### C BC #### [facility] [address] [place] [address] Dr. Eusebia Moralez Monocytes/100 WBC (Bld) 9.4 % Normal 1.7-12.0 [facility] Comment on above: Performed By: #### C BC #### [facility] [address] [place] [address] Dr. Eusebia Moralez NEUT # 4.7 103/ul Normal 1.4-6.5 [facility] Comment on above: Performed By: #### C BC #### [facility] [address] [place] [address] Dr. Eusebia Moralez Neutrophils/100 WBC (Bld) 67.6 % Normal 43.0-75.0 [facility] Comment on above: Performed By: #### C BC #### [facility] [address] [place] [address] Dr. Eusebia Moralez Platelet mean volume (Bld) [Entitic vol] 9.9 fL Normal 9.5-13.5 [facility] Comment on above: Performed By: #### C BC #### [facility] [address] [place] [address] Dr. Eusebia Moralez PLT 218 103/ul Normal 150-450 [facility] Comment on above: Performed By: #### C BC #### [facility] [address] [place] [address] Dr. Eusebia Moralez RBC 4.36 106/ul Normal 4.20-5.40 [facility] Comment on above: Performed By: #### C BC #### [facility] [address] [place] [address] Dr. Eusebia Moralez WBC 6.9 103/ul Normal 4.0-11.0 [facility] Comment on above: Performed By: #### C BC #### [facility] [address] [place] [address] [address] Eusebia Moralez PROF CHEM 8 (BAS METB)on Anion gap [Moles/Vol] 9.0 mmol/L Normal [facility] Comment on above: Performed By: #### B MP #### [facility] [address] [place] [address] [address] Eusebia Moralez Calcium [Mass/Vol] 9.2 mg/dL Normal 8.5-10.1 [facility] Comment on above: Performed By: #### B MP #### [facility] [address] [place] [address] [address] Eusebia Moralez Chloride [Moles/Vol] 103 mmol/L Normal 98-107 [facility] Comment on above: Performed By: #### B MP #### [facility] [address] [place] [address] Dr. Eusebia Moralez CO2 [Moles/Vol] 32.9 mmol/L Critically high 21.0-32.0 [facility] Comment on above: Performed By: #### B MP #### [facility] [address] [place] [address] Dr. Eusebia Moralez Creatinine [Mass/Vol] 1.74 mg/dL Critically high 0.55-1.02 [facility] Comment on above: Performed By: #### B MP #### [facility] [address] [place] [address] [address] Eusebia Moralez EGFR-AF SAMOAN 35 mL/min/1.73m2 Critically low >=60 [facility] Comment on above: Performed By: #### B MP #### [facility] [address] [place] [address] [address] Eusebia Moralez EGFR-NON AF SAMOAN 29 mL/min/1.73m2 Critically low >=60 [facility] Comment on above: Performed By: #### B MP #### [facility] [address] [place] [address] [address] Eusebia Moralez Glucose [Mass/Vol] 101 mg/dL Normal 74-106 [facility] Comment on above: Performed By: #### B MP #### [facility] [address] [place] [address] [address] Eusebia Moralez Potassium [Moles/Vol] 3.9 mmol/L Normal 3.5-5.1 [facility] Comment on above: Performed By: #### B MP #### [facility] [address] [place] [address] [address] Eusebia Moralez Sodium [Moles/Vol] 141 mmol/L Normal 136-145 [facility] Comment on above: Performed By: #### B MP #### [facility] [address] [place] [address] [address] Eusebia Moralez Urea nitrogen [Mass/Vol] 34.0 mg/dL Critically high 7.0-18.0 [facility] Comment on above: Performed By: #### B MP #### [facility] [address] [place] [address] [address] Eusebia Moralez Urea nitrogen/Creatinine [Mass ratio] 19.5 mg/mg Normal [facility] Comment on above: Performed By: #### B MP #### [facility] [address] [place] [address] [address] Eusebia Moralez CBC AUTO DIFFon 07-02-2022 BASO # 0.1 103/ul Normal 0.0-0.1 [facility] Comment on above: Performed By: #### C BC ####[facility] [address] [place] [address]Dr. Eusebia Moralez Basophils/100 WBC (Bld) 0.7 % Normal 0.2-2.0 [facility] Comment on above: Performed By: #### C BC ####[facility] [address] [place] [address]Dr. Eusebia Moralez EO # 0.1 103/ul Normal 0.0-0.7 [facility] Comment on above: Performed By: #### C BC ####[facility] [address] [place] [address]Dr. Eusebia Moralez Eosinophils/100 WBC (Bld) 1.8 % Normal 0.9-7.0 [facility] Comment on above: Performed By: #### C BC ####[facility] [address] [place] [address]Dr. Eusebia Moralez Erythrocyte distribution width (RBC) [Ratio] 13.1 % Normal 11.0-15.0 [facility] Comment on above: Performed By: #### C BC ####[facility] [address] [place], [place] [address]Dr. Eusebia Moralez Hematocrit (Bld) [Volume fraction] 40.2 % Normal 36.0-48.0 [facility] Comment on above: Performed By: #### C BC ####[facility] [address] [place], [place] [address]Dr. Eusebia Moralez Hemoglobin (Bld) [Mass/Vol] 12.5 g/dL Normal 12.0-16.0 [facility] Comment on above: Performed By: #### C BC ####[facility] [address] [place], [place] [address]Dr. Eusebia Moralez IG # 0.01 10e3/ul Normal 0.00-0.03 [facility] Comment on above: Performed By: #### C BC ####[facility] [address] [place], [place] [address]Dr. Eusebia Moralez IG % 0.1 % Normal 0.0-0.5 [facility] Comment on above: Performed By: #### C BC ####[facility] [address] [place], [place] [address]Dr. Eusebia Kirt LYMPH # 1.5 103/ul Normal 1.2-3.8 [facility] Comment on above: Performed By: #### C BC ####[facility] [address] [place], [place] [address]Dr. Lisadenise Moralez Lymphocytes/100 WBC (Bld) 22.6 % Normal 20.5-60.0 [facility] Comment on above: Performed By: #### C BC ####[facility] [address] [place], [place] [address]Dr. Eusebia Moralez MANUAL DIFF REQ NO Normal [facility] Comment on above: Performed By: #### C BC ####[facility] [address] [place] [address]Dr. Eusebia Kirt MCH (RBC) [Entitic mass] 29.3 pg Normal 26.7-34.0 [facility] Comment on above: Performed By: #### C BC ####[facility] [address] [place] [address]Dr. Eusebia Kirt MCHC (RBC) [Mass/Vol] 31.1 g/dL Normal 29.9-35.2 [facility] Comment on above: Performed By: #### C BC ####[facility] [address] [place] [address]DrRadha Moralez MCV (RBC) [Entitic vol] 94.4 fL Normal 81.0-99.0 [facility] Comment on above: Performed By: #### C BC ####[facility] [address] [place], [place] [address]DrRadha Moralez MONO # 0.6 103/ul Normal 0.3-0.8 [facility] Comment on above: Performed By: #### C BC ####[facility] [address] [place], [place] [address]DrRadha Moralez Monocytes/100 WBC (Bld) 9.1 % Normal 1.7-12.0 [facility] Comment on above: Performed By: #### C BC ####[facility] [address] [place], [place] [address]DrRadha Moralez NEUT # 4.4 103/ul Normal 1.4-6.5 [facility] Comment on above: Performed By: #### C BC ####[facility] [address] [place], [place] [address]DrRadha Moralez Neutrophils/100 WBC (Bld) 65.7 % Normal 43.0-75.0 [facility] Comment on above: Performed By: #### C BC ####[facility] [address] [place], [place] [address]DrRadha Moralez Platelet mean volume (Bld) [Entitic vol] 9.6 fL Normal 9.5-13.5 [facility] Comment on above: Performed By: #### C BC ####[facility] [address] [place] [address]Dr. Eusebia Moralez PLT 204 103/ul Normal 150-450 [facility] Comment on above: Performed By: #### C BC ####[facility] [address] [place] [address]Dr. Eusebia Moralez RBC 4.26 106/ul Normal 4.20-5.40 [facility] Comment on above: Performed By: #### C BC ####[facility] [address] [place] [address]Dr. Eusebia Moralez WBC 6.7 103/ul Normal 4.0-11.0 [facility] Comment on above: Performed By: #### C BC ####[facility] [address] [place], [place] [address]Dr. Eusebia Moralez PROF CHEM 8 (BAS METB)on Anion gap [Moles/Vol] 11.2 mmol/L Normal [facility] Comment on above: Performed By: #### B MP ####[facility] [address] [place], [place] [address]Dr. Eusebia Moralez Calcium [Mass/Vol] 9.2 mg/dL Normal 8.5-10.1 [facility] Comment on above: Performed By: #### B MP ####[facility] [address] [place], [place] [address]Dr. Eusebia Moralez Chloride [Moles/Vol] 109 mmol/L Critically high 98-107 [facility] Comment on above: Performed By: #### B MP ####[facility] [address] [place], [place] [address]DrRadha Moralez CO2 [Moles/Vol] 27.6 mmol/L Normal 21.0-32.0 [facility] Comment on above: Performed By: #### B MP ####[facility] [address] [place], [place] [address]Dr. Eusebia Moralez Creatinine [Mass/Vol] 1.49 mg/dL Critically high 0.55-1.02 [facility] Comment on above: Performed By: #### B MP ####[facility] [address] [place] [address]Dr. Eusebia Moralez EGFR-AF SAMOAN 42 mL/min/1.73m2 Critically low >=60 [facility] Comment on above: Performed By: #### B MP ####[facility] [address] [place] [address]Dr. Eusebia Moralez EGFR-NON AF SAMOAN 34 mL/min/1.73m2 Critically low >=60 [facility] Comment on above: Performed By: #### B MP ####[facility] [address] [place], [place] [address]Dr. Eusebia Moralez Glucose [Mass/Vol] 89 mg/dL Normal 74-106 [facility] Comment on above: Performed By: #### B MP ####[facility] [address] [place], [place] [address]Dr. Eusebia Moralez Potassium [Moles/Vol] 4.8 mmol/L Normal 3.5-5.1 [facility] Comment on above: Performed By: #### B MP ####[facility] [address] [place], [place] [address]Dr. Eusebia Moralez Sodium [Moles/Vol] 143 mmol/L Normal 136-145 [facility] Comment on above: Performed By: #### B MP ####[facility] [address] [place] [address]Dr. Eusebia Moralez Urea nitrogen [Mass/Vol] 27.0 mg/dL Critically high 7.0-18.0 [facility] Comment on above: Performed By: #### B MP ####[facility] [address] [place], [place] [address]Dr. Eusebia Moralez Urea nitrogen/Creatinine [Mass ratio] 18.1 mg/mg Normal [facility] Comment on above: Performed By: #### B MP ####[facility] [address] [place], [place] [address]Dr. Eusebia Moralez CT LUNG CANCER SCREENINGon 1 [...] AMBAR MAYA Date: 2022-02-24 08:15 Normal [facility] PROF CHEM 8 (BAS METB)on Anion gap [Moles/Vol] 9.7 mmol/L Normal [facility] Comment on above: Performed By: #### B MP #### [facility] [address] [place] [address] Dr. Eusebia Moralez Calcium [Mass/Vol] 8.8 mg/dL Normal 8.5-10.1 [facility] Comment on above: Performed By: #### B MP #### [facility] [address] [place] [address] [address] Eusebia Moralez Chloride [Moles/Vol] 107 mmol/L Normal 98-107 [facility] Comment on above: Performed By: #### B MP #### [facility] [address] [place] [address] [address] Eusebia Moralez CO2 [Moles/Vol] 29.5 mmol/L Normal 21.0-32.0 [facility] Comment on above: Performed By: #### B MP #### [facility] [address] [place] [address] [address] Eusebia Moralez Creatinine [Mass/Vol] 1.83 mg/dL Critically high 0.55-1.02 [facility] Comment on above: Performed By: #### B MP #### [facility] [address] [place] [address] [address] Eusebia Moralez EGFR-AF SAMOAN 33 mL/min/1.73m2 Critically low >=60 [facility] Comment on above: Performed By: #### B MP #### [facility] [address] [place] [address] [address] Eusebia Moralez EGFR-NON AF SAMOAN 27 mL/min/1.73m2 Critically low >=60 [facility] Comment on above: Performed By: #### B MP #### [facility] [address] [place] [address] [address] Eusebia Moralez Glucose [Mass/Vol] 87 mg/dL Normal 74-106 [facility] Comment on above: Performed By: #### B MP #### [facility] [address] [place] [address] [address] Eusebia Moralez Potassium [Moles/Vol] 5.2 mmol/L Critically high 3.5-5.1 [facility] Comment on above: Performed By: #### B MP #### [facility] [address] [place] [address] [address] Eusebia Moralez Sodium [Moles/Vol] 141 mmol/L Normal 136-145 [facility] Comment on above: Performed By: #### B MP #### [facility] [address] [place] [address] [address] Eusebia Moralez Urea nitrogen [Mass/Vol] 37.0 mg/dL Critically high 7.0-18.0 [facility] Comment on above: Performed By: #### B MP #### [facility] [address] [place] [address] [address] Eusebia Moralez Urea nitrogen/Creatinine [Mass ratio] 20.2 mg/mg Normal [facility] Comment on above: Performed By: #### B #### [facility] [address] [place] [address] Dr. Eusebia Moralez NM STRESS/REST MULTIon 01-23 NM STRESS/REST MULTI Patient: DARON SADLER Exam Date: 01/23/2022 : 1950 Gender:F Ordering : DR DEBBIE BHATIA . Admission #: [id number] Family : Order #: [id number] CLICK HERE TO VIEW EXAM RADIOLOGY REPORT [...] Canchola MD on 01/26/2022 at 13:45 Normal [facility] ECHOCARDIO M/2D COMPLETEon 1 03-23-2021 ECHOCARDIO M/2D COMPLETE Patient: VERO SADLER Exam Date: 01/21/2022 : 1950 Gender:F Ordering : DR DEBBIE BHATIA . Admission #: [id number] Family : Order #: [id number] CLICK HERE TO VIEW EXAM ECHOCARDIOGRAM REPORT [...] Tato Salcido M.D. on 01/21/2022 at 09:17 [facility] XR DEXA BONE DENSITYon 01-21 XR [...] authenticated by: RAJI CANCHOLA Date: 2022-01-21 10:03 [facility] BNPon 01-14-2022 Natriuretic peptide B (Bld) [Mass/Vol] 834.0 pg/mL Normal <=900.0 [facility] Comment on above: Performed By: #### T SH, BNP, CMP, T7, LIPID ####[facility] [address] [place], [place] [address]KhDr. Eusebia Moralez CBC AUTO DIFFon 01-14-2022 BASO # 0.0 103/ul Normal 0.0-0.1 [facility] Comment on above: Performed By: #### C BC #### [facility] [address] [address] [address] Eusebia Moralez Basophils/100 WBC (Bld) 0.4 % Normal 0.2-2.0 [facility] Comment on above: Performed By: #### C BC #### [facility] [address] [address] [address] Eusebia Moralez EO # 0.1 103/ul Normal 0.0-0.7 [facility] Comment on above: Performed By: #### C BC #### [facility] [address] [address] [address] Eusebia Moralez Eosinophils/100 WBC (Bld) 1.1 % Normal 0.9-7.0 [facility] Comment on above: Performed By: #### C BC #### [facility] [address] [address] [address] Eusebia Moralez Erythrocyte distribution width (RBC) [Ratio] 15.0 % Normal 11.0-15.0 [facility] Comment on above: Performed By: #### C BC #### [facility] [address] [address] [address] Eusebia Moralez Hematocrit (Bld) [Volume fraction] 39.6 % Normal 36.0-48.0 [facility] Comment on above: Performed By: #### C BC #### [facility] [address] [place] [address] Dr. Eusebia Moralez Hemoglobin (Bld) [Mass/Vol] 12.4 g/dL Normal 12.0-16.0 [facility] Comment on above: Performed By: #### C BC #### [facility] [address] [place] [address] Dr. Eusebia Moralez IG # 0.02 10e3/ul Normal 0.00-0.03 [facility] Comment on above: Performed By: #### C BC #### [facility] [address] [place] [address] Dr. Eusebia Moralez IG % 0.3 % Normal 0.0-0.5 [facility] Comment on above: Performed By: #### C BC #### [facility] [address] [place] [address] Dr. Eusebia Moralez LYMPH # 1.3 103/ul Normal 1.2-3.8 [facility] Comment on above: Performed By: #### C BC #### [facility] [address] [place] [address] Dr. Eusebia Moralez Lymphocytes/100 WBC (Bld) 17.9 % Critically low 20.5-60.0 [facility] Comment on above: Performed By: #### C BC #### [facility] [address] [place] [address] Dr. Eusebia Moralez MANUAL DIFF REQ NO Normal [facility] Comment on above: Performed By: #### C BC #### [facility] [address] [place] [address] Dr. Eusebia Moralez MCH (RBC) [Entitic mass] 29.8 pg Normal 26.7-34.0 [facility] Comment on above: Performed By: #### C BC #### [facility] [address] [place] [address] Dr. Eusebia Moralez MCHC (RBC) [Mass/Vol] 31.3 g/dL Normal 29.9-35.2 [facility] Comment on above: Performed By: #### C BC #### [facility] [address] [place] [address] Dr. Eusebia Moralez MCV (RBC) [Entitic vol] 95.2 fL Normal 81.0-99.0 [facility] Comment on above: Performed By: #### C BC #### [facility] [address] [place] [address] Dr. Eusebia Moralez MONO # 0.5 103/ul Normal 0.3-0.8 [facility] Comment on above: Performed By: #### C BC #### [facility] [address] [address] [address] Eusebia Moralez Monocytes/100 WBC (Bld) 7.0 % Normal 1.7-12.0 [facility] Comment on above: Performed By: #### C BC #### [facility] [address] [place] [address] Dr. Eusebia Moralez NEUT # 5.2 103/ul Normal 1.4-6.5 [facility] Comment on above: Performed By: #### C BC #### [facility] [address] [place] [address] Dr. Eusebia Moralez Neutrophils/100 WBC (Bld) 73.3 % Normal 43.0-75.0 [facility] Comment on above: Performed By: #### C BC #### [facility] [address] [place] [address] Dr. Eusebia Moralez Platelet mean volume (Bld) [Entitic vol] 9.5 fL Normal 9.5-13.5 [facility] Comment on above: Performed By: #### C BC #### [facility] [address] [place] [address] Dr. Eusebia Moralez PLT 188 103/ul Normal 150-450 [facility] Comment on above: Performed By: #### C BC #### [facility] [address] [place] [address] Dr. Eusebia Moralez RBC 4.16 106/ul Critically low 4.20-5.40 [facility] Comment on above: Performed By: #### C BC #### [facility] [address] [place] [address] Dr. Eusebia Moralez WBC 7.0 103/ul Normal 4.0-11.0 [facility] Comment on above: Performed By: #### C BC #### [facility] [address] [place] [address] Dr. Eusebia Moralez FREE THYROXINE INDEX T7on FTI 2.45 Normal 1.30-4.50 [facility] Comment on above: Performed By: #### T SH, BNP, CMP, T7, LIPID ####[facility] [address] [place] [id number] Moralez T3U 35.0 % Normal 30.0-39.0 [facility] Comment on above: Performed By: #### T SH, BNP, CMP, T7, LIPID ####[facility] [address] [address]DrRadha Moralez T4 [Mass/Vol] 7.00 ug/dL Normal 4.80-13.90 [facility] Comment on above: Performed By: #### T SH, BNP, CMP, T7, LIPID ####[facility] [address] [address]DrRadha Moralez IRONon 01-14-2022 Iron [Mass/Vol] 58.0 ug/dL Normal 50.0-170.0 [facility] Comment on above: Performed By: #### I MONIE #### [facility] [address] [address] [address] Eusebia Moralez LIPID PROFILEon 01-14-2022 CHOL-HDL RATIO NORM SEE BELOW Normal [facility] Comment on above: Result Comment: 3.3 - 4.4 LOW RISK 4.4 - 7.1 AVERAGE RISK 7.1 - 11.0 MODERATE RISK >11.0 HIGH RISK Performed By: #### T SH, BNP, CMP, T7, LIPID ####[facility] [address] [id number] Moralez Cholesterol [Mass/Vol] 186 mg/dL Normal <=200 [facility] Comment on above: Performed By: #### T SH, BNP, CMP, T7, LIPID ####[facility] [address] [place] [id number] Moralez Cholesterol in HDL [Mass/Vol] 45 mg/dL Normal 40-60 [facility] Comment on above: Performed By: #### T SH, BNP, CMP, T7, LIPID ####[facility] [address] [id number]. Eusebia Moralez Cholesterol in LDL [Mass/Vol] 118.4 mg/dL Normal [facility] Comment on above: Performed By: #### T SH, BNP, CMP, T7, LIPID ####[facility] [address] [place], [place] [address]At. Eusebia Moralez Cholesterol.total/Latoya sterol in HDL [Mass ratio] 4.1 {ratio} Normal [facility] Comment on above: Performed By: #### T SH, BNP, CMP, T7, LIPID ####[facility] [address] [id number]. Eusebia Moralez HDL NORMAL > or = 60 mg/dl - LO W CARDIOVASCULAR RISK <40 mg/dl - HIGH CARDIOVASCULAR RISK Normal [facility] Comment on above: Performed By: #### T SH, BNP, CMP, T7, LIPID ####[facility] [address] [address]Dr. Eusebia Moralez LDL CALC NORMAL SEE BELOW Normal [facility] Comment on above: Result Comment: <100 mg/dl OPTIMAL 100 - 129 mg/dl NEAR OR ABOVE OPTIMAL 130 - 159 mg/dl BORDERLINE HIGH 160 - 189 mg/dl HIGH >190 mg/dl VERY HIGH Performed By: #### T SH, BNP, CMP, T7, LIPID ####[facility] [address] [id number]. Eusebia Moralez Triglyceride [Mass/Vol] 113 mg/dL Normal <=150 [facility] Comment on above: Performed By: #### T SH, BNP, CMP, T7, LIPID ####[facility] [address] [place] [id number]. Eusebia Moralez VLDL CALC 22.6 mg/dL Normal [facility] Comment on above: Performed By: #### T SH, BNP, CMP, T7, LIPID ####[facility] [address] [id number]. Eusebia Moralez PROF 14(COMP METB)on 022 Albumin [Mass/Vol] 3.3 g/dL Critically low 3.4-5.0 [facility] Comment on above: Performed By: #### T SH, BNP, CMP, T7, LIPID #### [facility] [address] [address] [address] Eusebia Moralez Albumin/Globulin [Mass ratio] 0.9 {ratio} Normal [facility] Comment on above: Performed By: #### T SH, BNP, CMP, T7, LIPID #### [facility] [address] [address] [address] Eusebia Moralez ALP [Catalytic activity/Vol] 81 U/L Normal 46-116 [facility] Comment on above: Performed By: #### T SH, BNP, CMP, T7, LIPID #### [facility] [address] [place] [address] Dr. Eusebia Moralez ALT [Catalytic activity/Vol] 19 U/L Normal 14-59 [facility] Comment on above: Performed By: #### T SH, BNP, CMP, T7, LIPID #### [facility] [address] [place] [address] Dr. Eusebia Moralez Anion gap [Moles/Vol] 12.3 mmol/L Normal [facility] Comment on above: Performed By: #### T SH, BNP, CMP, T7, LIPID #### [facility] [address] [place] [address] Dr. Eusebia Moralez AST [Catalytic activity/Vol] 12 U/L Critically low 15-37 [facility] Comment on above: Performed By: #### T SH, BNP, CMP, T7, LIPID #### [facility] [address] [place] [address] Dr. Eusebia Moralez Bilirubin [Mass/Vol] 0.4 mg/dL Normal 0.2-1.0 [facility] Comment on above: Performed By: #### T SH, BNP, CMP, T7, LIPID #### [facility] [address] [place] [address] Dr. Eusebia Moralez Calcium [Mass/Vol] 8.9 mg/dL Normal 8.5-10.1 [facility] Comment on above: Performed By: #### T SH, BNP, CMP, T7, LIPID #### [facility] [address] [address] [address] Eusebia Moralez Chloride [Moles/Vol] 106 mmol/L Normal 98-107 [facility] Comment on above: Performed By: #### T SH, BNP, CMP, T7, LIPID #### [facility] [address] [address] [address] Eusebia Moralez CO2 [Moles/Vol] 27.4 mmol/L Normal 21.0-32.0 [facility] Comment on above: Performed By: #### T SH, BNP, CMP, T7, LIPID #### [facility] [address] [place] [address] Dr. Eusebia Moralez Creatinine [Mass/Vol] 1.51 mg/dL Critically high 0.55-1.02 [facility] Comment on above: Performed By: #### T SH, BNP, CMP, T7, LIPID #### [facility] [address] [place] [address] Dr. Eusebia Moralez EGFR-AF SAMOAN 41 mL/min/1.73m2 Critically low >=60 [facility] Comment on above: Performed By: #### T SH, BNP, CMP, T7, LIPID #### [facility] [address] [place] [address] Dr. Eusebia Moralez EGFR-NON AF SAMOAN 34 mL/min/1.73m2 Critically low >=60 [facility] Comment on above: Performed By: #### T SH, BNP, CMP, T7, LIPID #### [facility] [address] [place] [address] Dr. Eusebia Moralez Globulin (S) [Mass/Vol] 3.5 g/dL Normal [facility] Comment on above: Performed By: #### T SH, BNP, CMP, T7, LIPID #### [facility] [address] [place] [address] Dr. Eusebia Moralez Glucose [Mass/Vol] 129 mg/dL Critically high 74-106 [facility] Comment on above: Performed By: #### T SH, BNP, CMP, T7, LIPID #### [facility] [address] [place] [address] Dr. Eusebia Moralez Potassium [Moles/Vol] 4.7 mmol/L Normal 3.5-5.1 [facility] Comment on above: Performed By: #### T SH, BNP, CMP, T7, LIPID #### [facility] [address] [address] [address] Eusebia Moralez Protein [Mass/Vol] 6.8 g/dL Normal 6.4-8.2 [facility] Comment on above: Performed By: #### T SH, BNP, CMP, T7, LIPID #### [facility] [address] [address] [address] Eusebia Moralez Sodium [Moles/Vol] 141 mmol/L Normal 136-145 [facility] Comment on above: Performed By: #### T SH, BNP, CMP, T7, LIPID #### [facility] [address] [address] [address] Eusebia Moralez Urea nitrogen [Mass/Vol] 37.0 mg/dL Critically high 7.0-18.0 [facility] Comment on above: Performed By: #### T SH, BNP, CMP, T7, LIPID #### [facility] [address] [address] [address] Eusebia Moralez Urea nitrogen/Creatinine [Mass ratio] 24.5 mg/mg Normal [facility] Comment on above: Performed By: #### T SH, BNP, CMP, T7, LIPID #### [facility] [address] [address] [address] Eusebia Moralez TSHon 01-14-2022 TSH 0.068 uIU/mL Critically low 0.358-3.740 [facility] Comment on above: Performed By: #### T SH, BNP, CMP, T7, LIPID ####[facility] [address] [address]Dr. Eusebia Moralez Covid-19 PCR (CVDTB)on 10-13 SARS-CoV-2 (COVID-19) RNA DEREK+probe Ql (Unsp spec) Not detected Normal NOT DETECTED [facility] Comment on above: Result Comment: This test is not yet approved or cleared by the [place] FDA. When there are no FDA-approved or cleared tests available, and other criteria are met, FDA can make tests available under an emergency access mechanism called an Emergency Use Authorization (EUA). The EUA for this test is supported by the Medical Aide of Health and Human Service's (HHS's) declaration [...] consistent with SARS-CoV-2. Performed By: #### C [facility] ####[facility] [place], [place] [address]Pb. Eusebia Moralez MRI LSPINE WO CONon 10-11-19 [...] AMBAR MAYA Date: 2021-10-10 07:29 Normal [facility] Pulmonary Progress Noteo n 09-13-2020 [facility] Pulmonary Progress Note [facility] Pt Name: VERO SADLER [facility] [address] MR#: [id number] [place] [address] ACCT: [id number] PROGRESS NOTE- Pulmonary : [facility] Date of Service: 09/13/20 Text NAME: VERO SADLER MR#: [id number] DATE OF SERVICE: 09/13/2020 OUTPATIENT PULMONARY PROGRESS [...] disease, severity unknown. We will try to [facility] Pt Name: VERO SADLER [address] [place] [address] MR#: [id number] [place] [address] ACCT: [id number] PROGRESS NOTE- Pulmonary : [facility] [...] postoperative management if needed. TIM TOSCANO MD DI/MODL/[id number] 2 CC: Dr. Rito Guerrero MD [facility] Date and Time Tim Toscano MD Signature on File 09/26/20 1046 Normal [facility] GLYCO HEMOon 08-23-2020 HbA1c (Bld) [Mass fraction] 5.3 % Normal [facility] Comment on above: Result Comment: Milagro vidal Diagnosis HbA1c (%) --------- Diabetic > 6.4 Prediabetes 5.7-6.4 Normal < 5.7 Performed By: #### L 500.95713 #### Test performed at: [address] [address] CBC W/DIFFon 08-22-2020 BASO ABS 0.0 K/uL Normal 0.0-0.2 [facility] Comment on above: Performed By: #### L 200.19711 #### Test performed at: [place] [address] Basophils/100 WBC (Bld) 0.5 % Normal [facility] Comment on above: Performed By: #### L 200.09265 #### Test performed at: [place] [address] EOS ABS 0.1 K/uL Normal 0.0-0.5 [facility] Comment on above: Performed By: #### L 200.52460 #### Test performed at: [address] [address] Eosinophils/100 WBC (Bld) 1.2 % Normal [facility] Comment on above: Performed By: #### L 200.38446 #### Test performed at: [address] [address] Erythrocyte distribution width (RBC) [Ratio] 12.8 % Normal 11.5-14.5 [facility] Comment on above: Performed By: #### L 200.64713 #### Test performed at: [address] [address] Hematocrit (Bld) [Volume fraction] 40.1 % Normal 36.0-48.0 [facility] Comment on above: Performed By: #### L 200.22132 #### Test performed at: [address] [address] Hemoglobin (Bld) [Mass/Vol] 12.4 g/dL Normal 12.0-15.0 [facility] Comment on above: Performed By: #### L 200.83239 #### Test performed at: [place] [address] IG % 0.3 % Normal [facility] Comment on above: Performed By: #### L 200.01591 #### Test performed at: [place] [address] IG ABS 0.02 K/uL Normal 0-0.05 [facility] Comment on above: Performed By: #### L 200.79367 #### Test performed at: [place] [address] Lymphocytes (Bld) [#/Vol] 1.3 10*3/uL Normal 1.2-3.5 [facility] Comment on above: Performed By: #### L 200.47619 #### Test performed at: [place] [address] Lymphocytes/100 WBC (Bld) 16.9 % Normal [facility] Comment on above: Performed By: #### L 200.25636 #### Test performed at: [address] [address] MCH (RBC) [Entitic mass] 29.0 pg Normal 25.4-34.6 [facility] Comment on above: Performed By: #### L 200.10015 #### Test performed at: [address] [address] MCHC (RBC) [Mass/Vol] 30.9 g/dL Low 31.5-36.5 [facility] Comment on above: Performed By: #### L 200.88573 #### Test performed at: [address] [address] MCV (RBC) [Entitic vol] 93.7 fL Normal 79.0-98.0 [facility] Comment on above: Performed By: #### L 200.71604 #### Test performed at: [address] [address] MONO ABS 0.8 K/uL Normal 0.0-1.0 [facility] Comment on above: Performed By: #### L 200.93680 #### Test performed at: [address] [address] Monocytes/100 WBC (Bld) 9.7 % Normal [facility] Comment on above: Performed By: #### L 200.66987 #### Test performed at: [place] [address] NEUTROPHIL ABS 5.5 K/uL Normal 1.4-6.6 [facility] Comment on above: Performed By: #### L 200.61889 #### Test performed at: [address] [address] Neutrophils/100 WBC (Bld) 71.4 % Normal [facility] Comment on above: Performed By: #### L 200.90963 #### Test performed at: [place] [address] NRBC # 0.000 K/uL Normal 0-0.012 [facility] Comment on above: Performed By: #### L 200.64083 #### Test performed at: [place] [address] NRBC % 0.0 /100 WBC Normal 0-0.2 [facility] Comment on above: Performed By: #### L 200.55056 #### Test performed at: [address] [address] Platelet mean volume (Bld) [Entitic vol] 10.1 fL Normal 8.7-12.4 [facility] Comment on above: Performed By: #### L 200.40800 #### Test performed at: [address] [address] Platelets (Bld) [#/Vol] 236 10*3/uL Normal 140-440 [facility] Comment on above: Performed By: #### L 200.49686 #### Test performed at: [address] [address] RBC (Bld) [#/Vol] 4.28 10*6/uL Normal 3.5-5.5 [facility] Comment on above: Performed By: #### L 200.60440 #### Test performed at: [address] [address] WBC (Bld) [#/Vol] 7.7 10*3/uL Normal 3.9-11.0 [facility] Comment on above: Performed By: #### L 200.64521 #### Test performed at: [address] [address] CHEST PA/AP & LATERAL OR 2 V WSon 08-22-2020 CHEST PA/AP & LATERAL OR 2 VWS STUDY: CHEST PA/AP LATERAL OR 2 VWS; 08/22/2020 2:35 pm INDICATION: COPD. COMPARISON: None. ACCESSION NUMBER(S): [id number] ORDERING CLINICIAN: Ovidio Baez FINDINGS: The lungs are clear without pleural effusion. Borderline cardiomegaly. Otherwise unremarkable mediastinum, eron, and pulmonary vasculature. Thoracic degenerative changes are present. IMPRESSION: No active disease in the chest. Normal [facility] COMP META PANELon 08-22-2020 Albumin [Mass/Vol] 3.4 g/dL Normal 3.4-5.0 [facility] Comment on above: Performed By: #### L 500.44211, L500.10363, L500.27143 #### Test performed at: [address] [address] ALK PHOS TOTAL 88 U/L Normal 45-117 [facility] Comment on above: Performed By: #### L 500.77783, L500.50608, L500.69444 #### Test performed at: [address] [address] ALT [Catalytic activity/Vol] 17 U/L Normal 13-61 [facility] Comment on above: Performed By: #### L 500.77017, L500.79338, L500.53173 #### Test performed at: [address] [address] AST [Catalytic activity/Vol] 12 U/L Low 15-37 [facility] Comment on above: Performed By: #### L 500.75797, L500.43332, L500.98531 #### Test performed at: [address] [address] BILI TOTAL 0.5 mg/dL Normal 0.2-1.0 [facility] Comment on above: Performed By: #### L 500.28874, L500.90165, L500.11984 #### Test performed at: [address] [address] Calcium [Mass/Vol] 9.0 mg/dL Normal 8.5-10.1 [facility] Comment on above: Performed By: #### L 500.56925, L500.71257, L500.46624 #### Test performed at: [address] [address] Chloride [Moles/Vol] 107 mmol/L Normal 98-107 [facility] Comment on above: Performed By: #### L 500.48472, L500.97164, L500.83971 #### Test performed at: [address] [address] CO2 [Moles/Vol] 29 mmol/L Normal 21-32 [facility] Comment on above: Performed By: #### L 500.73267, L500.74090, L500.32481 #### Test performed at: [address] [address] Creatinine [Mass/Vol] 1.280 mg/dL High 0.550-1.020 [facility] Comment on above: Performed By: #### L 500.06066, L500.48226, L500.17434 #### Test performed at: [address] [address] Glucose [Mass/Vol] 90 mg/dL Normal 70-99 [facility] Comment on above: Result Comment: Fast ing GLUCOSE reference range has been updated per (ADA) [place] [employer]'s recommendation. 06/07/2018 Performed By: #### L 500.38532, L500.71322, L500.80518 #### Test performed at: [address] [address] Potassium [Moles/Vol] 4.4 mmol/L Normal 3.5-5.1 [facility] Comment on above: Performed By: #### L 500.54596, L500.10843, L500.05292 #### Test performed at: [address] [address] Protein [Mass/Vol] 6.8 g/dL Normal 6.4-8.2 [facility] Comment on above: Performed By: #### L 500.78785, L500.57834, L500.44064 #### Test performed at: [address] [address] Sodium [Moles/Vol] 142 mmol/L Normal 136-145 [facility] Comment on above: Performed By: #### L 500.39773, L500.13005, L500.49481 #### Test performed at: [place] [address] Urea nitrogen [Mass/Vol] 21 mg/dL High 7-18 [facility] Comment on above: Performed By: #### L 500.54886, L500.87614, L500.81535 #### Test performed at: [place] [address] GFR ESTIMATEon 08-22-2020 IF AMER 50 Low > 60 [facility] Comment on above: Result Comment: eGFR (Estimated GFR) Units of measure:mL/min/1.73 meters sq. *CALCULATION REVISED 01/01/2015;IDMS-traceable MDRD equation eGFR is derived from the reexpressed MDRD Study equation using the following parameters: serum creatinine, age, gender and race. An eGFR<60 mL/min/1.73m2 for >3 months is consistent with chronic kidney disease. Refer to KDOQI guidelines for clinical interpretation. Performed By: #### L 500.06999, L500.93317, L500.56531 #### Test performed at: [place] [address] IF non-AFR AMER 41 Low > 60 [facility] Comment on above: Performed By: #### L 500.16088, L500.67918, L500.63130 #### Test performed at: [address] [address] TSH ULTRA SENSon 08-22-2020 TSH ULTRA SENS < 0.005 Low 0.358-3.74 [facility] Comment on above: Performed By: #### L 500.86666, L500.75281, L500.85584 #### Test performed at: [place] [address] LUMB SP COMP W FLEX/EXT 6 VW Son 07-23-2020 LUMB SP COMP W FLEX/EXT 6 VWS STUDY: LUMB SP COMP W FLEX/EXT 6 VWS ; 07/23/2020 9:01 am INDICATION: PAIN. COMPARISON: None. ACCESSION NUMBER(S): [id number] ORDERING CLINICIAN: Sacha Guerrero FINDINGS: No fracture [...] of the lumbar spine without instability. Normal [facility] Vital Signs Date Time Vital Sign Value Performing Clinician Facility 07-19-2024 14:20-0400 Diastolic blood pressure 60 mm[Hg] Debbie Bhatia MD Work Phone: [facility] 07-19-2024 14:20-0400 Heart rate 67 /min Debbie Bhatia MD Work Phone: [facility] 07-19-2024 14:20-0400 Respiratory rate 18 /min Debbie Bhatia MD Work Phone: [facility] 07-19-2024 14:20-0400 SaO2% (BldA) [Mass fraction] 98 % Debbie Bhatia MD Work Phone: [facility] 07-19-2024 14:20-0400 Systolic blood pressure 132 mm[Hg] Debbie Bhatia MD Work Phone: [facility] 07-19-2024 11:23-0400 Body height 162.56 cm Debbie Bhatia MD Work Phone: [facility] 07-19-2024 11:23-0400 Body weight 133.81 kg Debbie Bhatia MD Work Phone: [facility] 07-13-2024 10:50-0400 Blood Pressure Location ROSETTA ZAMUDIOANSAH-AMANKRA [facility] 07-13-2024 10:50-0400 Diastolic blood pressure 82 mm[Hg] ROSETTA NKANSAH-AMANKRA [facility] 07-13-2024 10:50-0400 Heart rate 74 /min ROSETTA NKANSAH-AMANKRA [facility] 07-13-2024 10:50-0400 SaO2% (BldA) [Mass fraction] 94 % ROSETTA NKANSAH-AMANKRA [facility] 07-13-2024 10:50-0400 Systolic blood pressure 170 mm[Hg] ROSETTA NKANSAH-AMANKRA [facility] 07-13-2024 09:45-0400 Blood Pressure Location ROSETTA NKANSAH-AMANKRA [facility] 07-13-2024 09:45-0400 Body temperature 97.34 [degF] ROSETTA NKANSAH-AMANKRA [facility] 07-13-2024 09:45-0400 Diastolic blood pressure 78 mm[Hg] ROSETTA NKANSAH-AMANKRA [facility] 07-13-2024 09:45-0400 Heart rate 67 /min ROSETTA NKANSAH-AMANKRA [facility] 07-13-2024 09:45-0400 Mean blood pressure 109 mm[Hg] ROSETTA NKANSAH-AMANKRA [facility] 07-13-2024 09:45-0400 Respiratory rate 13 /min ROSETTA NKANSAH-AMANKRA [facility] 07-13-2024 09:45-0400 SaO2% (BldA) [Mass fraction] 93 % ROSETTA NKANSAH-AMANKRA [facility] 07-13-2024 09:45-0400 Systolic blood pressure 170 mm[Hg] ROSETTA NKANSAH-AMANKRA [facility] 07-13-2024 09:44-0400 SaO2% (BldA) [Mass fraction] 91 % ROSETTA NKANSAH-AMANKRA [facility] 07-13-2024 09:30-0400 Respiratory rate 13 /min ROSETTA NKANSAH-AMANKRA [facility] 07-13-2024 09:30-0400 Heart rate 68 /min ROSETTA NKANSAH-AMANKRA [facility] 07-13-2024 09:30-0400 Blood Pressure Location ROSETTA NKANSAH-AMANKRA [facility] 07-13-2024 09:30-0400 Diastolic blood pressure 71 mm[Hg] ROSETTA NKANSAH-AMANKRA [facility] 07-13-2024 09:30-0400 Mean blood pressure 98 mm[Hg] ROSETTA NKANSAH-AMANKRA [facility] 07-13-2024 09:30-0400 Systolic blood pressure 153 mm[Hg] ROSETTA NKANSAH-AMANKRA [facility] 07-13-2024 09:25-0400 Respiratory rate 18 /min ROSETTA NKANSAH-AMANKRA [facility] 07-13-2024 09:25-0400 Mean blood pressure 98 mm[Hg] ROSETTA NKANSAH-AMANKRA [facility] 07-13-2024 09:20-0400 Respiratory rate 12 /min ROSETTA NKANSAH-AMANKRA [facility] 07-13-2024 09:15-0400 Body temperature 97.16 [degF] ROSETTA NKANSAH-AMANKRA [facility] 07-13-2024 09:15-0400 Respiratory rate 12 /min ROSETTA NKANSAH-AMANKRA [facility] 07-13-2024 07:27-0400 Mean blood pressure 113 mm[Hg] ROSETTA NKANSAH-AMANKRA [facility] 07-13-2024 07:26-0400 Mean blood pressure 121 mm[Hg] ROSETTA NKANSAH-AMANKRA [facility] 07-13-2024 07:24-0400 Respiratory rate 20 /min ROSETTA NKANSAH-AMANKRA [facility] 07-13-2024 07:24-0400 Body temperature 97.7 [degF] ROSETTA NKANSAH-AMANKRA [facility] 06-27-2024 11:14-0400 Body height 160.02 cm [facility] 06-27-2024 11:14-0400 Body mass index (BMI) [Ratio] 53 kg/m2 [facility] 06-27-2024 11:14-0400 Body temperature 97.6 [degF] [facility] 06-27-2024 11:14-0400 Body weight 135.79 kg [facility] 06-27-2024 11:14-0400 Diastolic blood pressure 77 mm[Hg] [facility] 06-27-2024 11:14-0400 Heart rate 101 /min [facility] 06-27-2024 11:14-0400 Respiratory rate 18 /min [facility] 06-27-2024 11:14-0400 SaO2% (BldA) [Mass fraction] 93 % [facility] 06-27-2024 11:14-0400 Systolic blood pressure 157 mm[Hg] [facility] 06-26-2024 13:31-0400 Heart rate 67 /min ROSETTAVIVIANE SOSAAH-AMANKRA [facility] 06-26-2024 13:31-0400 SaO2% (BldA) [Mass fraction] 94 % ROSETTA NKANSAH-AMANKRA [facility] 06-26-2024 13:30-0400 Respiratory rate 20 /min ROSETTA SOSAAH-AMANKRA [facility] 06-20-2024 09:36-0400 Body height 162.6 cm John Mathews MD Work Phone: [facility] 06-20-2024 09:36-0400 Body mass index (BMI) [Ratio] 50.46 kg/m2 John Mathews MD Work Phone: [facility] 06-20-2024 09:36-0400 Body weight 133.36 kg John Mathews MD Work Phone: [facility] 06-20-2024 09:36-0400 Diastolic blood pressure 78 mm[Hg] John Mathews MD Work Phone: [facility] 06-20-2024 09:36-0400 Systolic blood pressure 175 mm[Hg] John Mathews MD Work Phone: [facility] 05-09-2024 08:38-0500 Body height 162.6 cm John Mathews MD Work Phone: [facility] 05-09-2024 08:38-0500 Body mass index (BMI) [Ratio] 50.81 kg/m2 John Mathews MD Work Phone: [facility] 05-09-2024 08:38-0500 Body weight 134.26 kg John Mathews MD Work Phone: [facility] 05-09-2024 08:38-0500 Diastolic blood pressure 90 mm[Hg] John Mathews MD Work Phone: [facility] 05-09-2024 08:38-0500 Heart rate 87 /min John Mathews MD Work Phone: [facility] 05-09-2024 08:38-0500 Systolic blood pressure 170 mm[Hg] John Mathews MD Work Phone: [facility] 03-31-2024 14:50-0500 Blood Pressure Location ROSETTA NKANSAH-AMANKRA [facility] 03-31-2024 14:50-0500 Diastolic blood pressure 82 mm[Hg] ROSETTA NKANSAH-AMANKRA [facility] 03-31-2024 14:50-0500 Heart rate 86 /min ROSETTA NKANSAH-AMANKRA [facility] 03-31-2024 14:50-0500 Respiratory rate 16 /min ROSETTA NKANSAH-AMANKRA [facility] 03-31-2024 14:50-0500 Systolic blood pressure 152 mm[Hg] ROSETTA NKANSAH-AMANKRA [facility] 01-06-2024 13:02-0400 Body height 162.56 cm [facility] 01-06-2024 13:02-0400 Body mass index (BMI) [Ratio] 50.5 kg/m2 [facility] 01-06-2024 13:02-0400 Body temperature 96.3 [degF] [facility] 01-06-2024 13:02-0400 Body weight 133.46 kg [facility] 01-06-2024 13:02-0400 Diastolic blood pressure 90 mm[Hg] [facility] 01-06-2024 13:02-0400 Heart rate 81 /min [facility] 01-06-2024 13:02-0400 Respiratory rate 18 /min [facility] 01-06-2024 13:02-0400 SaO2% (BldA) [Mass fraction] 98 % [facility] 01-06-2024 13:02-0400 Systolic blood pressure 179 mm[Hg] [facility] Encounters Encounter Date Encounter Type Care Provider Facility Start: 08-21-2024 ambulatory ROSETTA KAROLYNCHRIS Facility:[facility] Start: 07-19-2024 Non-patient / Non-visit Yong Bhatia MD Work Phone: [facility] Work Phone: Start: 07-19-2024 End: 07-19-2024 Admission to same day surgery center Debbie Bhatia MD Work Phone: [facility] Work Phone: Start: 07-19-2024 End: 07-19-2024 ambulatory Debbie Bhatia MD Work Phone: [facility] Work Phone: Start: 07-18-2024 ambulatory [facility] Start: 07-13-2024 End: 07-13-2024 Admission to same day surgery center ROSETTA MENDEZ [facility] Start: 07-13-2024 End: 07-13-2024 ambulatory ROSETTA CHANO [place] Start: 06-27-2024 End: 06-27-2024 ambulatory [facility] Work Phone: Start: 06-27-2024 End: 06-27-2024 Patient encounter procedure [facility] Work Phone: Start: 06-26-2024 End: 06-26-2024 Clinisync Result Encounter John Mathews MD Work Phone: [facility] Unsolicited Start: 06-26-2024 End: 06-26-2024 Clinisync Result Encounter John Mathews MD Work Phone: [facility] Unsolicited Start: 06-26-2024 End: 06-26-2024 ambulatory ROSETTA MENDEZ [place] Start: 06-26-2024 End: 06-26-2024 Patient encounter procedure ROSETTA MENDEZ [facility] Start: 06-20-2024 End: 06-20-2024 Bamboo flowsheet John Mathews MD Work Phone: [facility] Start: 06-20-2024 End: 06-20-2024 Bamboo flowsmone Mathews MD Work Phone: [facility] Start: 06-20-2024 Non-patient / Non-visit [facility] Work Phone: Start: 06-20-2024 [...] Start: 05-19-2024 End: 05-19-2024 ambulatory ROSETTA MENDEZ Facility:[facility] Start: 05-09-2024 End: 05-09-2024 Bamboo flowsheet John Mathews MD Work Phone: [facility] Start: 05-09-2024 End: 05-09-2024 Bamboo flowsheet John Mathews MD Work Phone: [facility] Start: 05-09-2024 End: 05-09-2024 Clinisync Result Encounter John Mathews MD Work Phone: [facility] Unsolicited Start: 05-09-2024 End: 05-09-2024 ambulatory [facility] Start: 05-09-2024 End: 05-09-2024 Office outpatient new 45 minutes John Mathews MD Work Phone: [facility] Comment on above: OME (otitis media wi th effusion), right (Primary Dx); Nonintractable headache, unspecified chronicity pattern, unspecified headache type Start: 05-09-2024 End: 05-09-2024 ambulatory JOHN MATHEWS Not Available Start: 05-05-2024 End: 05-05-2024 ambulatory ROSETTA MENDEZ Facility:[facility] Start: 05-05-2024 End: 05-05-2024 Patient encounter procedure ROSETTA MENDEZ [facility] Start: 05-01-2024 End: 05-01-2024 ambulatory Cande Garcia MD Facility:[facility] Start: 03-31-2024 End: 03-31-2024 ambulatory Debbie Bhatia Facility:[facility] Start: 03-31-2024 End: 03-31-2024 Patient encounter procedure ROSETTA MENDEZ [facility] Start: 02-22-2024 ambulatory ROSETTA MENDEZ Facility: [place] Start: 02-14-2024 End: 02-14-2024 ambulatory Cande Garcia MD Facility:[facility] Start: 02-08-2024 End: 02-08-2024 ambulatory JOSEY [facility] Start: 01-26-2024 End: 01-26-2024 ambulatory TATO SALCIDO [facility] Start: 01-06-2024 End: 01-06-2024 ambulatory [facility] Work Phone: Start: 01-06-2024 End: 01-06-2024 Patient encounter procedure [facility] [place] Work Phone: Start: 11-23-2023 End: 11-23-2023 Encounter for other specified special examinations RYAN López [facility] Start: 11-23-2023 End: 11-23-2023 ambulatory RYAN López [facility] Start: 10-26-2023 End: 10-26-2023 ambulatory JOSEY KOCKO [facility] Start: 07-17-2022 End: 07-18-2022 ambulatory JOSEY [...] Start: 09-29-2016 End: 09-30-2016 Ambulatory DEFAULT PHYSICIAN Facility:[facility] Procedures Date Procedure Procedure Detail Performing Clinician [...] ROSETTA NKANSAH [facility]AMANKRA [facility] Plan of Treatment Date Care Activity Detail Author Start: 02-09-2033 Screening for malign ant neoplasm of colon [facility] Start: 11-13-2024 Influenza vaccination Influenz a Vaccine (Season Ended) [facility] Start: 08-09-2024 End: 08-09-2024 Patient encounter procedure 08/09/2024 9:40 AM EDT Office Visit [facility] [address] [place] [address] John Mathews MD [address] [place] [address] [facility] Start: 07-19-2024 End: 07-19-2024 [facility] Start: 06-20-2024 End: 06-20-2024 Patient encounter procedure [facility] Comment on above: Arrived Start: 05-09-2024 End: 05-09-2024 Patient encounter procedure 05/09/2024 8:40 AM EST Office Visit [facility] [address] [place] [address] John Mathews MD [address] [place] [address] Arrived [facility] Comment on above: Arrived Start: 11-14-2023 Influenza vaccination Influenza Vacc ine (#1) [facility] Start: 02-20-2016 Pneumococcal Vaccine : 65+ Years (1 of 1 - PCV) Pneumococcal Vaccine: 65+ Years (1 of 1 - PCV) [facility] Start: 2001 Pneumococcal Vaccine : 65+ Years (1 of 1 - PCV) Pneumococcal Vaccine: 65+ Years (1 of 1 - PCV) [facility] Start: 1991 Screening for malign ant neoplasm of breast Mammogram [facility] Start: 1950 Screening for malign ant neoplasm of colon [facility] Immunofixation for Urine [facility] Patient Education Hemorrhoids Co shreya polyps Diverticulosis Know your Meds [facility] Work Phone: Renal function 2000 panel - Serum or Plasma [facility] Renal function 1999 panel - Serum or Plasma [facility] Immunizations Immunization Date Immunization Notes Care Provider Fa dimaty 01-07-2021 SARS-CoV-2 (COVID-19 ) mRNA BNT-162b2 vax [facility] 12-17-2020 SARS-CoV-2 (COVID-19 ) mRNA BNT-162b2 vax ROSETTA NKANSAH-AMANKRA [facility] Payers Date Payer Category Payer Self-pay 2024 Unknown 2022 Medicare [id number] 2018 Private Health Insurance 2013 Medicare 1959 Medicare [id number] 1959 Unknown [id number] 1950 Unknown [id number] 2.16.84 0.1.030861.3.579.2.593 1951 Unknown [id number] 2.16.84 0.1.010133.3.579.2.593 1951 Unknown [id number] 2.16.84 0.1.229944.3.579.2.593 1951 Unknown [id number] 2.16.84 0.1.142879.3.579.2.593 1951 Unknown [id number] 2.16.84 0.1.183393.3.579.2.593 1951 Unknown [id number] 2.16.84 0.1.303694.3.579.2.593 1951 Unknown [id number] 2.16.84 0.1.493320.3.579.2.593 1951 Unknown [id number] 2.16.84 0.1.348490.3.579.2.593 1951 Unknown [id number] 2.16.84 0.1.293787.3.579.2.593 1951 Unknown [id number] 2.16.84 0.1.398174.3.579.2.593 1951 Unknown [id number] 2.16.84 0.1.238692.3.579.2.593 1951 Unknown [id number] 2.16.84 0.1.880656.3.579.2.593 1951 Unknown [id number] 2.16.84 0.1.126626.3.579.2.593 1951 Unknown [id number] 2.16.84 0.1.998738.3.579.2.593 1951 Unknown [id number] 2.16. 840.1.826336.3.579.2.196 1951 Unknown [id number] 2.16. 840.1.004848.3.579.2.196 1951 Unknown [id number] 2.16.84 0.1.353275.3.579.2.1259 1951 Unknown [id number] 2.16.84 0.1.401909.3.579.2.1259 1951 Unknown [id number] 2.16.8 40.1.661805.3.579.2.727 1951 Unknown [id number] 2.16.8 40.1.409926.3.579.2.727 1951 Unknown [id number] 2.16.8 40.1.313020.3.579.2.727 1951 Unknown [id number] 2.16.8 40.1.356667.3.579.2.727 1951 Unknown [id number] 2.16.8 40.1.149361.3.579.2.727 1950 Unknown [id number] 2.16.8 40.1.967192.3.579.2.727 Unknown [id number] Unknown [id number] 04.30.8 40.1.928260.3.579.2.531 Social History Date Type Detail Facility Start: 01-06-2024 End: 07-19-2024 Tobacco smoking status NHIS Ex-smoker (finding) [facility] Start: 1950 Sex Assigned At Female F [facility] Tobacco smoking status Never [facility] Start: 05-09-2024 End: 06-20-2024 Sex Assigned At Female [facility] Tobacco smoking stat [facility] Tobacco smoking consumption unknown [facility] Start: 1950 Sex assigned at Not on file [facility] Start: 05-09-2024 Tobacco smoking stat [facility] Never smoked tobacco [facility] Start: 05-09-2024 Tobacco use and exposure Smokeless tobacco non-user [facility] Start: 05-09-2024 End: 06-20-2024 Alcoholic beverage intake Ex-drinker (finding) [facility] Start: 05-09-2024 End: 06-20-2024 History of Social function [facility] Tobacco [facility] Comment on above: quit in 2009 Tobacco smoking status [facility] Start: 07-09-2016 End: 07-19-2024 Sex Female (finding) [facility] Goals Date Patient Goal Desired Activity /State Functional Status Date Assessment Result Facility 06-26-2024 Functional Status No [facility] 03-31-2024 Functional Status N/A [facility] Clinical Notes 10-26-2023 to 07-19-2024 Note Date & Type Note Facility 07-19-2024 Procedure note [facility] 07-19-2024 History and physi magnolia note [facility] 07-15-2024 Note Progress Note-Physic stacy Patient: VERO SADLER Age: 74 years Sex: Female : 1950 Associated Diagnoses: None Author: Pedro Walden MD Postoperative Information Postoperative disposition: Postoperative disposition: To PACU. Optimetrix number: Optimetrix number [id number]. Anesthetic utilized: General. Health Status Allergies: Allergic Reactions (Selected) Severity Not Documented Adhesive Bandage- Hives. Physical Examination VS/Measurements Pain Assessment: Controlled. General: Awake, Appropriate. Respiratory: Adequate air exchange. Cardiovascular: Stable. Neurological Assessment Anesthetic outcome No anesthetic complications noted. Adequate pain relief. Review / Management Condition: Stable. Plan Transfer/Discharge: Transfer/Discharge Discharge when meets criteria ( To home ). [facility] Comment on above: Result Comment: Elec tronically Signed By: Pedro Walden MD\.br\Date and Time Signed: 07/15/24 16:46 EDT 07-13-2024 Hospital Discharge instructions Patient Education 07/13/2024 10:40:08 Post Op Patient Instructions - FT (CUSTOM) Follow Up Care 05/19/2024 09:13:05 With:ROSETTA MENDEZ Address:Unknown When: Unknown Comments:1 month [facility] 07-13-2024 Note Patient Education - Text [facility] 07-13-2024 Note Progress Note-Physic stacy Patient: [...] Problems Aspirin long-term use / SNOMED CT 6912495282 / Confirmed Atrial fibrillation / SNOMED CT 78057810 / Confirmed Bradycardia / SNOMED CT 67769132 / Confirmed CAD (coronary artery disease) / SNOMED CT 55100059 / Confirmed Chronic kidney disease due to hypertension.. / SNOMED CT 2224794784 / Confirmed Chronic kidney disease stage 3A. / SNOMED CT 2577175200 / Confirmed Chronic kidney disease stage 4 / SNOMED CT 7256802521 / Confirmed Chronic kidney disease, stage 3 / SNOMED CT 0139140137 / Confirmed Chronic obstructive pulmonary disease / SNOMED CT 05459901 / Confirmed Former smoker / SNOMED CT 65999527 / Confirmed History of colon polyps / SNOMED CT 2148472583 / Confirmed History of operative procedure on lumbar spinal structure / SNOMED CT 4946197149 / Confirmed History of tobacco abuse / SNOMED CT 4532430916 / Confirmed Hypercholesterolemia / SNOMED CT 50733967 / Confirmed Hyperkalemia / SNOMED CT 63893511 / Confirmed Hypertension / SNOMED CT 6626353729 / Confirmed Hypertensive disorder / SNOMED CT 9315296298 / Confirmed Hypothyroidism / SNOMED CT 61632992 / Confirmed Morbid obesity / SNOMED CT 525071341 / Confirmed Multiple pulmonary nodules / SNOMED CT 7292929934 / Confirmed Pulmonary hypertension / SNOMED CT 472654496 / Confirmed Spinal stenosis / SNOMED CT 317077150 / Confirmed Stress incontinence, female / SNOMED CT 106641431 / Confirmed Canceled: Kidney stones / SNOMED CT 832685245 pt denies, Active Problems (23) Aspirin long-term [...] or recorded. Fam (more content not included)... [facility] Comment on above: Result Comment: Elec tronically Signed By: Pedro Walden MD\.br\Date and Time Signed: 07/13/24 08:41 EDT 07-12-2024 Evaluation + Plan note Extrac lani from: Title:ANES Pre-operative Note 2022 Author:Pedro Villalpando Date:07/12/24 Plan [place] [employer] (ASA) physical status classification: Class III. Anesthetic Preoperative Plan: Anesthesia Monitored anethesia care. [facility] 04-15-2025 Evaluation note* Diagnosis Onset Date [...] Secondary hyperparathyroidism acute June 27, 2024 10:58am [facility] Work Phone: [phone] 459-321604-08-2025 History of Present illness Narrative* John Mathews [...] Active Ambulatory Problems Diagnosis Date Noted A-fib ([facility]) 04/21/2022 Chest pain 07/27/2016 CKD (chronic kidney disease) stage 4, GFR 15-29 ml/min ([facility]) 01/26/2024 Clinical trial exam 04/23/2022 Dyspnea 07/27/2016 Edema 07/27/2016 Essential hypertension ([facility]) 01/25/2020 Fatigue 07/27/2016 Hyperkalemia 01/26/2024 Lightheadedness 07/27/2016 Lower abdominal pain 01/30/2022 Nonsustained paroxysmal ventricular tachycardia ([facility]) 11/30/2022 Obstructive sleep apnea syndrome 10/02/2022 Other secondary pulmonary hypertension 12/15/2022 Secondary hyperparathyroidism ([facility]) 01/26/2024 Spinal stenosis of lumbar region with neurogenic claudication 01/30/2022 Spondylosis of lumbosacral region without myelopathy or radiculopathy 01/30/2022 Symptomatic bradycardia 01/01/2023 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 VT (ventricular tachycardia) ([facility]) 04/29/2022 Aspirin long-term use 05/09/2024 CAD (coronary artery disease) ([facility]) 05/09/2024 Chronic obstructive pulmonary disease ([facility]) 05/09/2024 Former smoker 05/09/2024 History of colon polyps 05/09/2024 History of tobacco abuse 05/09/2024 Hypercholesterolemia ([facility]) 05/09/2024 Hypothyroidism ([facility]) 05/09/2024 Kidney stones 05/09/2024 Morbid obesity ([facility]) 05/09/2024 Multiple pulmonary nodules 05/09/2024 Stage 3a chronic kidney disease (HCC) ([facility]) 01/31/2024 Status post lumbar spine [...] Hold ASA 10d preop documented [id number] NotePatient Education Obstetrics and Gynecology Kegel Exercises [...] provider. Document Revised: 07/10/2021 Document Reviewed: 07/10/2021 [employer] Patient Education ? 2023 [facility] 05-09-2024 NoteUT Cardiology Consult Note Reason [...] kidney disease COPD (chronic obstructive pulmonary disease) ([facility]/HCC) Hypertension Myocardial infarction ([facility]) Obstructive sleep apnea 10/02/2022 SOBIA=17.7 events/hour; Pranav SaO2=76%; Gmwpze=318.0 lbs; BMI=52.7 kg/m2, Home Sleep Apnea Testing on 09/25/2022 at [facility]: Past Surgical History: Procedure Laterality Date CARDIAC CATHETERIZATION COLONOSCOPY 02/09/2023 EYE SURGERY CATARACT FOOT SURGERY Right tendon repair HYSTERECTOMY INSERT / REPLACE / REMOVE PACEMAKER 01/12/2023 OTHER SURGICAL HISTORY Bilateral 05/31/2023 S1 TFESI - 20% pain relief SH: Social Determinants of Health Tobacco Use: Low Risk (05/09/2024) Received from [facility] Patient History Smoking Tobacco Use: [...] Transportation Needs (01/05/2023) Tr (more content not included)...[facility] History of Present illness Narrative* John [...] Active Ambulatory Problems Diagnosis Date Noted A-fib ([facility]) 04/21/2022 Chest pain 07/27/2016 CKD (chronic kidney disease) stage 4, GFR 15-29 ml/min ([facility]/HCC) 01/26/2024 Clinical trial exam 04/23/2022 Dyspnea 07/27/2016 Edema 07/27/2016 Essential hypertension (CMS/HCC) 01/25/2020 Fatigue 07/27/2016 Hyperkalemia 01/26/2024 Lightheadedness 07/27/2016 Lower abdominal pain 01/30/2022 Nonsustained paroxysmal ventricular tachycardia (CMS/HCC) 11/30/2022 Obstructive sleep apnea syndrome 10/02/2022 Other secondary pulmonary hypertension (CMS/HCC) 12/15/2022 Secondary hyperparathyroidism ([facility]/HCC) 01/26/2024 Spinal stenosis of lumbar region with neurogenic claudication 01/30/2022 Spondylosis of lumbosacral region without myelopathy or radiculopathy 01/30/2022 Symptomatic bradycardia 01/01/2023 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[facility]/HCC) 01/05/2023 VT (ventricular tachycardia) ([facility]) 04/29/2022 Aspirin long-term use 05/09/2024 CAD (coronary artery disease) ([facility]) 05/09/2024 Chronic obstructive pulmonary disease ([facility]) 05/09/2024 Former smoker 05/09/2024 History of colon polyps 05/09/2024 History of tobacco abuse 05/09/2024 Hypercholesterolemia ([facility]) 05/09/2024 Hypothyroidism ([facility]) 05/09/2024 Kidney stones 05/09/2024 Morbid obesity ([facility]) 05/09/2024 Multiple pulmonary nodules 05/09/2024 Stage 3a chronic kidney disease (HCC) ([facility]) 01/31/2024 Status post lumbar spine [...] possible cause of LAMBERT. documented in this encounter[id number] Hospital Discharge instructions Follow Up Care 04/12/2024 08:02:27 With:ROSETTA MENDEZ MD, URL Address: When: Unknown [facility] 01-17-2025 Hospital Discharge instructions Patient Education 03/31/2024 [...] including vitamins, herbs, eye drops, creams, and iqqz-pcb-hkszbsg medicines. Any problems you or family members [...] provider tells you to take them. Taking gvrl-owg-rtiymvj medicines, vitamins, herbs, and supplements. Tests You [...] Follow these instructions at home: Medicines Take ciao-uil-bhkslcd and prescription medicines only as told by [...] provider. Document Revised: 11/12/2021 Document Reviewed: 10/11/2020 [employer] Patient Education 2023 [employer]. 03/31/2024 15:09:42 Injection Treatments for Urinary Incontinence [...] including vitamins, herbs, eye drops, creams, and uahf-jqx-hhrfivy medicines. Any problems you or family members [...] provider tells you to take them. Taking ghsz-rbh-rzpcihu medicines, vitamins, herbs, and supplements. General instructions [...] provider. Document Revised: 10/04/2020 Document Reviewed: 10/04/2020 [employer] Patient Education 2023 [employer]. 03/31/2024 15:09:34 Kegel Exercises Kegel Exercises Kegel [...] provider. Document Revised: 07/10/2021 Document Reviewed: 07/10/2021 [employer] Patient Education 2023 [employer] Follow Up Care 02/22/2024 14:36:40 With:ROSETTA MENDEZ MD, URL Address: When: Unknown [facility] 01-17-2025 NotePatient Education Obstetrics and Gynecology [...] provider. Document Revised: 07/10/2021 Document Reviewed: 07/10/2021 [employer] Patient Education ? 2023 [employer]. Urology Cystoscopy Cystoscopy is a procedure that [...] including vitamins, herbs, eye drops, creams, and dzza-fxr-jmlbgmp medicines. ??? Any problems you or family [...] tells you to take them. ??? Taking vcri-guz-svamppq medicines, vitamins, herbs, and supplements. Tests You may have an exam or testing, such as: ??? X-rays of the bladder, urethra, or kidneys. ??? CT scan of the abdomen or pelvis. ??? Urine tests to check for signs of infection. General instructions ??? Follow instructions fr (more content not included)...[facility] Chief Complaint: Patient is here today for follow up [facility] ED visit. She was having chest [...] Disp: 479 g, Rfl (more content not included)...[facility]08-13-2024 NoteUT Cardiology Consult Note Reason for [...] sleep apnea 10/02/2022 SOBIA=17.7 events/hour; Pranav SaO2=76%; Wvnmvr=755.0 lbs; BMI=52.7 kg/m2, Home Sleep Apnea Testing on 09/25/2022 at [facility] PSH: Past Surgical History: Procedure Laterality [...] Allergies Allergen Reactions Penicillins (more content not included)...[facility] Evaluation + Plan note No data available for this section [facility] Evaluation + Plan note Future Appointments Appointment Date:07/13/2024 09:00:00 AM Scheduled Provider: Location:[facility] Surgical Services Appointment Type:Surgery FT [facility] Evaluation note* Diagnosis Onset Date Resolution Status CKD (chronic kidney disease) stage 4, GFR 15-29 ml/min acute Hyperkalemia acute [id number] acute Secondary hyperparathyroidism acute Chronic kidney disease nonea ctive [facility] Work Phone: Evaluation note* Diagnosis OME (otitis media with effusion), right- Primary Nonintractable headache, unspecified chronicity pattern, unspecified headache type documented in this encounter [facility] HealthcareEvaluation note* Diagnosis OME (otitis media [...] Secondary hyperparathyroidism acute June 27, 2024 10:58am [facility] Work Phone: History and physical note Author Kal Molina [facility] Note Date/Time July 19, 2024 1:20pm [facility] [address] [place] [address] Gastroenterology H&P Signed Patient: Vero Sadler MR#: [id number] : 1950 Acct:[id number] Age/Sex: 74 / F Adm Date: 5 Loc: Room: Type: [facility] Attending Dr: Kal Molina MD Copies to: [...] signed by Kal Molina MD> 07/19/24 1320 [facility] Work Phone: Hospital Discharge instructions No data available for this section [facility] Progress note No data available for this section [facility] Summary Purpose Family History No Family History [...] disease) stage 4, GFR 15-29 ml/min Hyperkalemia [id number] Secondary hyperparathyroidism Chronic kidney disease Chief Complaint [...] and content) DATE CREATED AUTHOR 09/08/2017 [facility] DATE CREATED AUTHOR AUTHOR'S ORGANIZ ATION 09/27/2020 [facility] DATE CREATED AUTHOR AUTHOR'S ORGANIZ ATION 07/24/2022 [facility] DATE CREATED AUTHOR AUTHOR'S ORGANIZ ATION 05/06/2024 [facility] DATE CREATED AUTHOR AUTHOR'S ORGANIZ ATION 06/21/2024 [facility] DATE CREATED AUTHOR AUTHOR'S ORGANIZ ATION 06/27/2024 [facility] DATE CREATED AUTHOR AUTHOR'S ORGANIZ ATION 07/21/2024 [place] DATE CREATED AUTHOR AUTHOR'S ORGANIZ ATION 07/26/2024 [facility] DATE CREATED AUTHOR AUTHOR'S ORGANIZ ATION 07/26/[address] 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 Operator Relationship Specialty Start Date End Date Debbie Bhatia MD [address] [place] [address] PCP - General Family Medicine 05/09/24 Blocking Machine Operator Relationship Specialty Start Date End Date Debbie Bhatia MD [address] [place] [address] PCP - General Family Medicine 05/09/24 Blocking Machine Operator Relationship Specialty Start Date End Date Debbie Bhatia MD [address] [place] [address] PCP - General Family Medicine 05/09/24 Blocking Machine Operator Relationship Specialty Start Date End Date Debbie Bhatia MD [address] [place] [address] PCP - General Family Medicine 05/09/24 Team [...] BE BASED ON THE PRIMARY CLINICAL RECORDS. [facility] [employer] provides no warranty or guarantee of the accuracy or completeness of information in this document.
[2024-07-29] MEDS: HYDRALAZINE HCL 50 MG TABLET 100 MG PO (05:51)
[2024-07-29] MEDS: LIOTHYRONINE SODIUM 25 MCG TABLET 37.5 MCG PO (05:51)
[2024-07-29] MEDS: LEVOTHYROXINE SODIUM 88 MCG TABLET PO (05:51)
[2024-07-29] MEDS: ACETAMINOPHEN 325 MG TABLET PO (06:03)
[2024-07-29 06:32] LABS: Basophils Percent Auto 0.6 % (0.2-2.0); Eosinophils Absolute Auto 0.1 10^3/uL (0.0-0.7); Eosinophils Percent Auto 1.5 % (0.9-7.0); Hematocrit 35.3 % (36.0-48.0); Hemoglobin 10.9 g/dL (12.0-16.0); Immature Granulocytes Abs Auto 0.02 10^3/uL (0.00-0.03); Immature Granulocytes Pct Auto 0.3 % (0.0-0.5); Lymphocytes Absolute Auto 1.5 10^3/uL (1.2-3.8); Lymphocytes Percent Auto 23.5 % (20.5-60.0); Mean Corpuscular HGB Conc 30.9 g/dL (29.9-35.2); Mean Corpuscular Hemoglobin 28.6 pg (26.7-34.0); Mean Corpuscular Volume 92.7 fL (81.0-99.0); Mean Platelet Volume 9.7 fL (9.5-13.5); Monocytes Absolute Auto 0.8 10^3/uL (0.3-0.8); Monocytes Percent Auto 13.3 % (1.7-12.0); Neutrophils Absolute Auto 3.7 10^3/uL (1.4-6.5); Neutrophils Percent Auto 60.8 % (43.0-75.0); Platelet Count 196 10^3/uL (150-450); Red Blood Count 3.81 10^6/uL (4.20-5.40); Red Cell Distribution Width 13.3 % (11.0-15.0); White Blood Count 6.2 10^3/uL (4.0-11.0)
[2024-07-29 06:46] LABS: Alanine Aminotransferase 12 U/L (14-59); Albumin Globulin Ratio 0.9; Albumin Level 2.9 g/dL (3.4-5.0); Alkaline Phosphatase 68 U/L (46-116); Aspartate Amino Transferase 10 U/L (15-37); BUN Creatinine Ratio 20.4; Bilirubin Total 0.5 mg/dL (0.2-1.0); Carbon Dioxide 26.9 mmol/L (21.0-32.0); Chloride 108 mmol/L (98-107); Estimated GFR (African America 21 (>=60 mL/min/1.73m^2); Estimated GFR (Non-African Ame 17 (>=60 mL/min/1.73m^2); Globulin 3.4 g/dL; Glucose 102 mg/dL (74-106); Magnesium 1.9 mg/dL (1.8-2.4); Potassium 4.9 mmol/L (3.5-5.1); Sodium 144 mmol/L (136-145); Total Protein 6.3 g/dL (6.4-8.2)
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
--- NOTE | 2024-07-29 09:37 | PM.DS1 ---
DS: Providers Provider Date of admission: 07/29/24 02:55 Primary care physician: Jeremiah Arvizu MD Consults: 07/29/24 Consult to Telestroke Routine Reason for consultation: TIA Has provider been notified: Yes DS: Diagnosis Discharge Diagnosis (1) Ocular migraine: (2) CKD (chronic kidney disease): (3) TIA (transient ischemic attack): (4) Lumbar spondylosis: (5) Nausea: (6) CAD (coronary artery disease): (7) Chronic kidney disease, stage III (moderate): DS: Summary Hospital Course Hospital Course: Patient admitted with possible TIA but symptoms more consistent with acute ocular migraine, CT scans were repeated unable to get MRI scan, but CT scan negative x 2, patient will be discharged to home in improved condition. Medications see list. Follow-up with me in the office this week. Time Spent with Patient Time attestation: Total time spent providing and/or coordinating discharge services: Time spent: greater than 30 minutes Exam Constitutional Vital Signs, click to edit/add: Last Vital Signs Temp 98.1 F 07/29/24 08:00 Pulse 73 07/29/24 08:00 Resp 16 07/29/24 08:00 BP 155/68 H 07/29/24 08:00 Pulse Ox 92 L 07/29/24 08:00 O2 Del Method Room Air 07/29/24 08:00 Documenting provider has reviewed patient's vital signs: yes Common normals: no apparent distress Respiratory Common normals: normal respiratory effort and no retractions Cardio Common normals: regular rate and regular rhythm GI Common normals: Normal to inspection, nondistended, normoactive bowel sounds present Neuro Common normals: oriented x3, CN's II-XII intact bilaterally and moves all extremities DS: Data Data Completed and Pending Labs on day of discharge: Labs from last 24 hours 07/29/24 07/28/24 06:10 23:30 WBC 6.2 7.2 RBC 3.81 L 3.89 L Hgb 10.9 L 11.4 L Hct 35.3 L 36.6 MCV 92.7 94.1 MCH 28.6 29.3 MCHC 30.9 31.1 RDW 13.3 13.4 Plt Count 196 202 MPV 9.7 9.6 Neut % (Auto) 60.8 66.4 Lymph % (Auto) 23.5 18.8 L Sharkey % (Auto) 13.3 H 12.4 H Eos % (Auto) 1.5 1.7 Baso % (Auto) 0.6 0.4 Neut # (Auto) 3.7 4.8 Lymph # (Auto) 1.5 1.4 Sharkey # (Auto) 0.8 0.9 H Eos # (Auto) 0.1 0.1 Baso # (Auto) 0.0 0.0 Abs Immat Gran (auto) 0.02 0.02 Imm/Tot Granulo (auto) 0.3 0.3 Sodium 144 141 Potassium 4.9 4.8 Chloride 108 H 108 H Carbon Dioxide 26.9 28.5 Anion Gap 14.0 9.3 BUN 55.0 H 53.0 H Creatinine 2.70 H 2.93 H Est GFR ( Amer) 21 L 19 L Est GFR (Non-Af Amer) 17 L 16 L BUN/Creatinine Ratio 20.4 18.1 Glucose 102 110 H Calcium 9.0 9.4 Magnesium 1.9 Total Bilirubin 0.5 AST 10 L ALT 12 L Alkaline Phosphatase 68 Troponin I High Sens 12.0 Total Protein 6.3 L Albumin 2.9 L Globulin 3.4 Albumin/Globulin Ratio 0.9 Discharge Plan Discharge Disposition: Home, Self-Care Condition: Good Discharge Medications: Continued pantoprazole 40 mg tablet,delayed release (DR/EC) 40 mg PO Q12H aspirin 81 mg capsule 81 mg PO DAILY bumetanide 1 mg tablet 1 mg PO DAILY PRN (Reason: edema) carvedilol 25 mg tablet 12.5 mg PO BID hydralazine 100 mg tablet 100 mg PO TID lisinopril 10 mg tablet 10 mg PO DAILY lovastatin 20 mg tablet 20 mg PO DAILY Yupelri 175 mcg/3 mL solution for nebulization 175 mcg inhalation DAILY liothyronine [Cytomel] 25 mcg tablet 37.5 mcg PO DAILY calcium carbonate-vitamin D3 600 mg-10 mcg (400 unit) tablet 2 tab PO DAILY clotrimazole-betamethasone 1-0.05 % cream 1 applic TOPICAL BID levothyroxine 88 mcg capsule 88 mcg PO DAILY albuterol sulfate 2.5 mg /3 mL (0.083 %) solution for nebulization 2.5 mg inhalation Q4H PRN (Reason: shortness of breath or wheezing) albuterol sulfate [Ventolin HFA] 90 mcg/actuation HFA aerosol inhaler 2 inh inhalation Q4H PRN (Reason: shortness of breath or wheezing) sodium polystyrene sulfonate Powder 15 g PO DAILY magnesium oxide 400 mg (241.3 mg magnesium) tablet 400 mg PO DAILY Activity: resume usual activities as tolerated Diet: advance to your usual diet Print Language: [place] Patient Instructions: Transient Ischemic Attack (GEN) Forms: Portal Instructions Follow Up Appointments: Call Wednesday for follow up with Dr Arvizu. [phone] Discharge Date/Time: 07/29/24 10:48
--- NOTE | 2024-07-31 11:58 | CM.DCFOLLOWU ---
Person spoke with:patient How are you feeling? really well How is your pain?none Did you understand your discharge instructions?yes Do you have any questions about your discharge instructions?no Were you given any prescriptions at discharge?no Were you able to get your prescriptions filled?N/A Do you understand how to take your medications as ordered? yes Do you have any questions about your follow up appointment and do you plan to keep your follow up appointment? no questions, will call PCP to schedule follow up Is there anything else that you would like to discuss? no Questions/Comments/Concerns/Other: none
== END 2024-07-29 10:48 | disposition home or self-care (01) ==
LOC: ER 07-29 01:53 → MS 07-29 02:59
PROVIDERS: Registered Nurse; Admitting Provider Family Medicine; Emergency Provider Internal Medicine; PCP Family Medicine; Visit Provider Family Medicine
DX: G43.B0 Ophthalmoplegic migraine, not intractable (principal); N17.9 Acute kidney failure, unspecified; I12.9 Hypertensive chronic kidney disease with stage 1 through stage 4 chronic kidney disease, or unspecified chronic kidney disease; N18.31 Chronic kidney disease, stage 3a; J44.89 Other specified chronic obstructive pulmonary disease; I25.10 Atherosclerotic heart disease of native coronary artery without angina pectoris; M47.816 Spondylosis without myelopathy or radiculopathy, lumbar region; E03.9 Hypothyroidism, unspecified; E78.00 Pure hypercholesterolemia, unspecified; E83.42 Hypomagnesemia; K21.9 Gastro-esophageal reflux disease without esophagitis; G47.33 Obstructive sleep apnea (adult) (pediatric); I27.20 Pulmonary hypertension, unspecified; I48.91 Unspecified atrial fibrillation; Z95.0 Presence of cardiac pacemaker; Z87.891 Personal history of nicotine dependence; Z79.899 Other long term (current) drug therapy; Z79.890 Hormone replacement therapy; Z79.82 Long term (current) use of aspirin; Z88.0 Allergy status to penicillin; Z88.8 Allergy status to other drugs, medicaments and biological substances; Z91.040 Latex allergy status
CPT/HCPCS: 36415; 70450; 80048; 80053; 81001; 83735; 84484; 85025; 87086; 93005; 93246; 94761; 99285; G0378

== ENCOUNTER 2024-08-09 16:43 | Outpatient (REF) | payer MEDICARE, SELFPAY ==
--- OUTSIDE RECORDS SUMMARY | 2024-08-03 09:45 | XMS_ITS ---
Author Organization [facility] [place] Address [address] [place] [address] Care Team Providers Care Hhas Name Role Phone Dontrell Arvizu Primary Care Provider Allergies Allergen (clinical drug ingredient) Drug/Non Drug Allergy documented on EMR Reaction Allergy Type Onset Date Status Plastic Tape (uncoded) hives Allergy 023 Active fluticasone Flonase Unknown Drug Allergy Activ e Penicillin Unknown Drug Allergy Active REASON FOR VISIT f/u hospital- had a headache on the top of her head down head and into the shoulders- wavey lines in vision and then dizzy - lasted over an hour, ER doctor mentioned a possible mini stroke- couldn't get MRI due to pacemaker- was told CT ok and blood testing ok Medications Medication SIG (Take, Route, Frequency, Duration) Notes Start Date End Date Status Liothyronine Sodium 25 MCG TAKE 1 AND 1/ 2 TABLETS BY MOUTH ONCE A DAY ON AN EMPTY STOMACH for 90 Active Levothyroxine Sodium 88 MCG 1 tablet in the morning on an empty stomach Orally Once a day for 90 days Active hydrALAZINE HCl 100 MG TAKE 1 TABLET BY MOUTH THREE TIMES A DAY FOR 90 DAYS for 90 Active Clotrimazole-Betamethasone 1-0.05 % APPLY SMALL AMOUNT TO AFFECTED AREA EXTERNALLY TWICE A DAY *USE SPARINGLY* for 30 days Active Carvedilol 12.5 MG 1 tablet with food Orally Twice a day for 90 days Active Albuterol Sulfate HFA 108 (90 Base) MCG/ACT 2 puffs as needed for SOB Inhalation every 4 hrs for 30 days Active Calcium 600 MG 1 tablet with meals Orally Twice a day 07/29/2023 Active Bumetanide 1 MG 1 tablet Orally Once a day 08/03/2024 Active Azelastine HCl 137 MCG/SPRAY INSTILL 1 S PRAY IN EACH NOSTRIL TWICE DAILY FOR 30 DAYS for 90 PRN Active Aspirin 81 81 MG 1 tablet Orally Once a day Active Albuterol Sulfate (2.5 MG/3ML) 0.083% Inhale one vial in nebulizer 4 times a day. Active Sodium Polystyrene Sulfonate - as directed Orally Active Yupelri 175 MCG/3ML 3 mL Inhalation Once a day 08/03/2024 Active Vitamin D Active Lovastatin 20 MG TAKE 1 TABLET BY ETHEL TH EVERY DAY AT NIGHT for 90 Active Lisinopril 10 MG 1 tablet Orally Once a day Active Pantoprazole Sodium 40 MG 1 tablet Orall y twice daily for 30 days Active Magnesium 400 MG 1 capsule Orally onc e daily 08/03/2024 Active Social History Tobacco Use: Social History Observation Description Date Details (start date - stop date) Former Smoker NA - NA Tobacco Use/Smoking Question Answer Notes Patient is a former smoker How long has it been since y ou last smoked? > 10 years Additional Findings: Tobacco Non-User Ex -very heavy cigarette smoker (40+/day) Tobacco Control (Standard) Question Answer Notes Tobacco use: Former smoker How long has it been since y ou last smoked? Greater than 10 years Additional Findings: Tobacco non-user Ex -very heavy cigarette smoker (40+/day) Problems Problem Type SNOMED Code ICD Code Onset Dates Problem Status W/U Status Risk Notes Problem Migraine (G43.909) Active confirmed Vital Signs Weight 298.4 lbs 08/03/2024 Height 65 in 08/03/2024 Blood pressure systolic 144 mm Hg 08/04/19 25 Blood pressure diastolic 86 mm Hg 025 BMI 49.65 kg/m2 08/03/2024 Encounters Encounter Location Date Provider Diagnosis [facility] [address] [place] [address] 08/03/2024 Dontrell Hoy Migraine G43.909 Assessments Encounter Date Diagnosis (ICD Code) Assessment Notes Treatment Notes Treatment Clinical Notes Section Notes 08/03/2024 Migraine (ICD-10 - G43.909) Plan Of Treatment Pending Test Test Name Order Date MRI BRAIN WO CON 08/03/2024 Next Appt Details Provider Name:Beatriz Campos , 08/15/2024 11:15:00 AM, [address] [place], [address], Provider Name:Donal Salmeron, 09/26/2024 09:00:00 AM, [address] [place], [address], Progress Notes * Vero COLLINS MDOB:[birth year] (74 yo F)Acc No.[id number]:08/03/2024 Progress Note Patient: Vero FIELD Provider: Alanna Arvizu ([facility])MD :1950 A ge:74 Y S ex:Female Date:08/03/2024 Address:[address], [id number] Check In:01:19 PM ESTCheck O ut:01:56 PM EST Subjective: * Chief Complaints: * F /u hospital- had a headache on the top of her head down head and into the shoulders- wavey lines in vision and then dizzy - lasted over an hourER doctor mentioned a possible mini stroke- couldn't get MRI due to pacemaker- was told CT ok and blood testing ok * HPI: G eneral: Had headache adn vision changeds - but thos e resolved -. * ROS: E ENT: hearing changes d enies. v isual changes d enies.?non-healing mouth sores d enies. s wollen glands or neck lumps d enies. h oarseness d enies. s ore throat d enies. d ifficulty swallowing d enies. n ose bleeds d enies. n pamela congestion d enies. e ar ache d enies. e ar discharge?denies. r inging in ears d enies. l ight sensitivity d enies. e ye pain d enies. b lurring d enies. e ye irritation d enies. d ouble vision d enies.?vision loss d enies. G eneral/Constitutional: Sweats: D enies. F atigue d enies. S leep problems d enies. A norexia d enies. M alaise d enies. W eight loss d enies.?Fatigue or Weakness d enies. F ever or Chills d enies. C ardiovascular: Shortness of Breath w/lying flat d enies. L ightheadedness/dizziness d enies. C hest tightness/ heavy pressure d enies. S welling of legs, ankles, or feet d enies. W aking up with shortness of breath d enies. C hest pain denies. P alpitations d enies. W eight gain d enies. R espiratory: Chronic or frequent cough d enies. C oughing up blood?denies. D ifficulty breathing d enies. P roductive cough d enies. S noring?denies. S hortness of breath that awakens from sleep (PND) d enies. C hest pain d enies. S putum production d enies. W heezing d enies. M usculoskeletal: Joint pain d enies. J oint Fluid d enies. B ack pain d enies. K nee pain d enies. N shaun pain d enies. J oint Stiffness d enies. M uscle cramps d enies. W eakness of muscles d enies. A rthritis d enies. M uscle aches d enies. P ain in shoulder(s) d enies. S wollen joints d enies. 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 Modified On:11/24/2022U Status:confirmed J44.9 COPD (chronic obstru ctive pulmonary disease) Modified On:05/11/2023U Status:confirmed M48.00 Spinal stenosis Modified On:05/21/2022U Status:confirmed N18.3 Chronic kidney disea se, stage 3 (moderate) Modified On:04/23/2023U Status:confirmed I27.20 Pulmonary hypertensi on Modified On:05/11/2023U Status:confirmed J44.9 Chronic obstructive pulmonary disease, unspecified COPD type Modified On:11/24/2022U Status:confirmed R91.8 Multiple pulmonary n odules Modified On:11/24/2022 Status:confirmed E66.01 Morbid obesity Modified On:11/24/2022 Status:confirmed U07.1 COVID-19 Modified On:10/13/2022 Status:confirmed 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 Modified On:11/09/2022 Status:confirmed L03.90 Cellulitis Modified On:11/12/2022 Status:confirmed K57.92 Diverticulitis Modified On:11/12/2022 Status:confirmed I49.5 Sick sinus syndrome Modified On:01/12/2023 Status:confirmed I47.19 Other supraventricul ar tachycardia Modified On:01/12/2023 Status:confirmed I47.29 Other ventricular ta chycardia Modified On:01/12/2023 Status:confirmed R00.1 Bradycardia, unspeci fied Modified On:01/27/2023 Status:confirmed I10 BP (high blood press ure) Modified On:02/18/2023 Status:confirmed Z95.0 Pacemaker Modified On:02/18/2023 Status:confirmed E44.1 Mild protein malnutr ition Modified On:02/18/2023 Status:confirmed R42 Dizziness Modified On:02/22/2023 Status:confirmed N18.30 Chronic kidney disea se (CKD), stage III (moderate) Modified On:05/11/2023U Status:confirmed M47.817 Lumbosacral spondylo sis Modified On:08/01/2023 Status:confirmed Z68.43 Body mass index [BMI ] 50.0-59.9, adult Modified On:11/23/2023 Status:confirmed E87.5 Hyperkalemia Modified On:01/10/2024 Status:confirmed M48.062 Spinal stenosis, lum bar region with neurogenic claudication Modified On:01/12/2024U Status:confirmed N81.10 Bladder prolapse, 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, acquired Modified On:02/22/2024 Status:confirmed M79.671 Right foot pain Modified On:03/10/2024/U Status:confirmed H65.90 Serous otitis media Modified On:04/17/2024/U Status:confirmed E78.00 Pure hypercholestero lemia, unspecified Modified On:05/31/2024/U Status:confirmed E03.9 Hypothyroidism Modified On:06/20/2024/U Status:confirmed E88.09 Hyperproteinemia Modified On:06/23/2024/U Status:confirmed D36.9 Tubular adenoma Modified On:07/27/2024/U Status:confirmed G43.909 Migraine Modified On:08/03/2024/U Status:confirmed * Medical History: * Surgical History: h ysterectomy cataract-lens implants Right Foot Surgery Back Surgery 05/11/2021PM Implant- Biotronik 01/12/2023olonoscopy & EGD - [facility] 01/2023Lumbar/Sacral Injections- Dr. Mensah 05/31/2023olonoscopy 07/19/24Rt Myringotomy, t-tube placement, nasal endoscopy- Dr Viramontes 07/06/2024 * Hospitalization/Major Diagno stic Procedure: D enies Past Hospitalization * Family History: M other: Cancer, rectal, asthma, diagnosed with Other malignant neoplasm of unspecified site, Unspecified essential hypertension. D aughter(s): pancreatic cancer, diagnosed with Other malignant neoplasm of unspecified site. F ather: diagnosed with Unspecified heart disease, Colon cancer. * Social History: T obacco Use: T obacco Control (Standard) T obacco use: F ormer smoker H ow long has it been since you last smoked??Greater than 10 years A dditional Findings: Tobacco non-user E x-very heavy cigarette smoker (40+/day) Electronic Cigarette use C urrent user N o LM: Additional Tobacco Questions N umber of Years Pt Smoked: 3 0 N umber of Packs per Day: 2 When did you stop smokin. Tobacco Use/Smoking P atient is a f ormer smoker H ow long has it been since you last smoked??> 10 years A dditional Findings: Tobacco Non-User E x-very heavy cigarette smoker (40+/day) * Medications: T akingAlbuterol Sulfate (2.5 MG/3ML) 0.083% Nebulization Solution Inhale one vial in nebulizer 4 times a day. Albuterol Sulfate HFA 108 (90 Base) MCG/ACT Aerosol Solution 2 puffs as needed for SOB Inhalation every 4 hrs Aspirin 81(Aspirin) 81 MG Tablet Delayed Release 1 tablet Orally Once a day Azelastine HCl 137 MCG/SPRAY Solution INSTILL 1 SPRAY IN EACH NOSTRIL TWICE DAILY FOR 30 DAYS , Notes to Pharmacist: PRNBumetanide 1 MG Tablet 1 tablet Orally Once a day Calcium 600 MG Tablet 1 tablet with meals Orally Twice a day Carvedilol 12.5 MG Tablet 1 tablet with food Orally Twice a day Clotrimazole-Betamethasone 1-0.05 % Cream APPLY SMALL AMOUNT TO AFFECTED AREA EXTERNALLY TWICE A DAY *USE SPARINGLY* hydrALAZINE HCl 100 MG Tablet TAKE 1 TABLET BY MOUTH THREE TIMES A DAY FOR 90 DAYS Levothyroxine Sodium 88 MCG Capsule 1 tablet in the morning on an empty stomach Orally Once a day Liothyronine Sodium 25 MCG Tablet TAKE 1 AND 1/2 TABLETS BY MOUTH ONCE A DAY ON AN EMPTY STOMACH Lisinopril 10 MG Tablet 1 tablet Orally Once a day Lovastatin 20 MG Tablet TAKE 1 TABLET BY MOUTH EVERY DAY AT NIGHT Magnesium 400 MG Capsule 1 capsule Orally once daily Pantoprazole Sodium 40 MG Tablet Delayed Release 1 tablet Orally twice daily Sodium Polystyrene Sulfonate - Powder as directed Orally Vitamin D Yupelri(Revefenacin) 175 MCG/3ML Solution 3 mL Inhalation Once a day Taking Albuterol Sulfate (2.5 MG/3ML) 0.083% Nebulization Solution Inhale one vial in nebulizer 4 times a day. Taking Albuterol Sulfate HFA 108 (90 Base) MCG/ACT Aerosol Solution 2 puffs as needed for SOB Inhalation every 4 hrs Taking Aspirin 81(Aspirin) 81 MG Tablet Delayed Release 1 tablet Orally Once a day Taking Azelastine HCl 137 MCG/SPRAY Solution INSTILL 1 SPRAY IN EACH NOSTRIL TWICE DAILY FOR 30 DAYS , Notes to Pharmacist: PRNTaking Bumetanide 1 MG Tablet 1 tablet Orally Once a day Taking Calcium 600 MG Tablet 1 tablet with meals Orally Twice a day Taking Carvedilol 12.5 MG Tablet 1 tablet with food Orally Twice a day Taking Clotrimazole-Betamethasone 1-0.05 % Cream APPLY SMALL AMOUNT TO AFFECTED AREA EXTERNALLY TWICE A DAY *USE SPARINGLY* Taking hydrALAZINE HCl 100 MG Tablet TAKE 1 TABLET BY MOUTH THREE TIMES A DAY FOR 90 DAYS Taking Levothyroxine Sodium 88 MCG Capsule 1 tablet in the morning on an empty stomach Orally Once a day Taking Liothyronine Sodium 25 MCG Tablet TAKE 1 AND 1/2 TABLETS BY MOUTH ONCE A DAY ON AN EMPTY STOMACH Taking Lisinopril 10 MG Tablet 1 tablet Orally Once a day Taking Lovastatin 20 MG Tablet TAKE 1 TABLET BY MOUTH EVERY DAY AT NIGHT Taking Magnesium 400 MG Capsule 1 capsule Orally once daily Taking Pantoprazole Sodium 40 MG Tablet Delayed Release 1 tablet Orally twice daily Taking Sodium Polystyrene Sulfonate - Powder as directed Orally Taking Vitamin D Taking Yupelri(Revefenacin) 175 MCG/3ML Solution 3 mL Inhalation Once a day DiscontinuedAzithromycin 250 MG Tablet 2 tabs today then 1 tab Orally daily Bumex(Bumetanide) 0.5 MG Tablet 1 tablet Orally Once a day Fluticasone Propionate 50 MCG/ACT Suspension 2 spray each side Nasally Twice a day Levsin/SL(Hyoscyamine Sulfate) 0.125 MG Tablet Sublingual 1 tablet under the tongue and allow to dissolve as needed Sublingual AC and HS Bghssims-Paceddugw-Kwzojmcp 3.5-43854-0.1 Suspension 1 drop into affected ear ear Four times a day traMADol HCl 50 MG Tablet 1 tablet as needed Orally BID Medication List reviewed and reconciled with the patientDiscontinued Azithromycin 250 MG Tablet 2 tabs today then 1 tab Orally daily Discontinued Bumex(Bumetanide) 0.5 MG Tablet 1 tablet Orally Once a day Discontinued Fluticasone Propionate 50 MCG/ACT Suspension 2 spray each side Nasally Twice a day Discontinued Levsin/SL(Hyoscyamine Sulfate) 0.125 MG Tablet Sublingual 1 tablet under the tongue and allow to dissolve as needed Sublingual AC and HS Discontinued Ngizykxz-Imyxcelwg-Oaxazpwj 3.5-22475-5.1 Suspension 1 drop into affected ear ear Four times a day Discontinued traMADol HCl 50 MG Tablet 1 tablet as needed Orally BID Medication List reviewed and reconciled with the patient * Allergies: P lastic Tape: hives - Side Effects - Criticality Low - Onset Date 3Penicillin: AllergyFlonase: Allergyno[Allergies Verified] Objective: * Vitals: W t:298.4lbs, Ht: 65 in, BP:144/86mm Hg, BMI:49.65Index, Ht-cm: 165.1 cm, Wt-k.35 kg. * Examination: P hysical Exam: GENERAL: w ell developed, well nourished, in no acute distress. HEAD: n ormocephalic/atraumatic. EYES: p upils equal, round and reactive to light, conjunctivae and sclerae normal. EARS: n o deformity or lesion of external ear, canals and TM appear normal bilaterally, TM's intact, not inflamed with normal light reflex, hearing grossly normal to conversational speech. NOSE: n o deformity, discharge, inflammation, or lesions.? MOUTH: m ucous membranes moist, normal oropharynx and posterior pharynx without lesions or exudates, tongue normal, dentition normal. NECK: n shaun supple, no masses or palpable cervical nodes, trachea midline, thyroid without nodules, masses, tenderness, or enlargement. CHEST: n o chest wall deformity, no chest wall tenderness.? LUNGS: n ormal respiratory effort and clear to auscultation, no wheezes, rales, or rhonchi, good air exchange. CARDIO: r egular rate and rhythm, normal S1 and S2, nor murmur, rub, or gallop. PULSES: n ormal capillary refill. ABDOMEN: s oft, non-distended, non-tender, no masses. MUSCULOSKELETAL: n o deformity or scoliosis noted, normal range of motion, joints normal, no erythema, edema, effusion, or ecchymosis. EXTREMITY: n o clubbing, cyanosis, edema, or deformity with normal ROM in both upper and lower bilateral extremities. NEUROLOGIC: g rossly normal. SKIN: n o rashes, ulcerations, or suspicious lesions. LYMPH NODES: n o cervical adenopathy, nodes normal. MENTAL STATUS: a lert and oriented x3, normal mood and affect. Assessment: * Assessment: [facility]. [facility] G43.909 (Primary) Plan: * Treatment: * Procedure Codes: * Preventive Medicine: Screenings/Counseling: B [place] ACTION PLAN Above Normal BMI Follow-up D ietary management education, guidance, and counseling * * Sign off status: Completed Visit Status: C HK (Check Out) true * Provider: Alanna Arvizu ([facility])MD Date: 0 08/03/2024 Generated for Printi ng/Faxing/eTransmitting on: 0 08/09/2024 04:46 PM EDT History and Physical Notes * HPI (History of Present Illness) Category Sub-Category Detail Notes Category Not es General Had headache ad n vision changeds - but thos e resolved - Examination Category Sub-Category Detail Notes Category Not es Physical Exam GENERAL: well developed, well nourished, in no acute distress HEAD: normocephalic/atraum atic EYES: pupils equal, round and reactive to light, conjunctivae and sclerae normal EARS: no deformity or lesi on of external ear, canals and TM appear normal bilaterally, TM's intact, not inflamed with normal light reflex, hearing grossly normal to conversational speech NOSE: no deformity, discha rge, inflammation, or lesions MOUTH: mucous membranes [place] st, normal oropharynx and posterior pharynx without lesions or exudates, tongue normal, dentition normal NECK: neck supple, no mass es or palpable cervical nodes, trachea midline, thyroid without nodules, masses, tenderness, or enlargement CHEST: no chest wall deform ity, no chest wall tenderness LUNGS: normal respiratory e ffort and clear to auscultation, no wheezes, rales, or rhonchi, good air exchange CARDIO: regular rate and rhy thm, normal S1 and S2, nor murmur, rub, or gallop PULSES: normal capillary ref ill ABDOMEN: soft, non-distended, non-tender, no masses RECTAL: MUSCULOSKELETAL: no deformity or scol iosis noted, normal range of motion, joints normal, no erythema, edema, effusion, or ecchymosis EXTREMITY: no clubbing, cyanosi s, edema, or deformity with normal ROM in both upper and lower bilateral extremities NEUROLOGIC: grossly normal SKIN: no rashes, ulceratio ns, or suspicious lesions LYMPH NODES: no cervical adenopat hy, nodes normal MENTAL STATUS: alert and oriented x 3, normal mood and affect
--- OUTSIDE RECORDS SUMMARY | 2024-08-08 06:30 | XMS_ITS ---
Author Organization [facility] in [place] Address [address] [place] [address] Care Team Providers Care Aerial Installer Name Role Phone Dontrell Arvizu Primary Care Provider Allergies Allergen (clinical drug ingredient) Drug/Non Drug Allergy documented on EMR Reaction Allergy Type Onset Date Status Plastic Tape (uncoded) hives Allergy 023 Active fluticasone Flonase Unknown Drug Allergy Activ e Penicillin Unknown Drug Allergy Active REASON FOR VISIT burn on left leg Medications Medication SIG (Take, Route, Frequency, Duration) Notes Start Date End Date Status Sodium Polystyrene Sulfonate - as directed Orally Active Yupelri 175 MCG/3ML 3 mL Inhalation Once a day 08/03/2024 Active Vitamin D Active Cefdinir 300 MG 2 capsule Orally onc e a day for 10 days 08/08/2024 Active Doxycycline Monohydrate 100 MG 1 capsule Orally bid for 10 days 08/08/2024 Active Pantoprazole Sodium 40 MG 1 tablet Orall y twice daily for 30 days Active Lisinopril 10 MG 1 tablet Orally Once a day Active Liothyronine Sodium 25 MCG TAKE 1 AND 1/ 2 TABLETS BY MOUTH ONCE A DAY ON AN EMPTY STOMACH for 90 Active Magnesium 400 MG 1 capsule Orally onc e daily 08/03/2024 Active Lovastatin 20 MG TAKE 1 TABLET BY ETHEL TH EVERY DAY AT NIGHT for 90 Active Calcium 600 MG 1 tablet with meals Orally Twice a day 07/29/2023 Active Clotrimazole-Betamethasone 1-0.05 % APPLY SMALL AMOUNT TO AFFECTED AREA EXTERNALLY TWICE A DAY *USE SPARINGLY* for 30 days Active Carvedilol 12.5 MG 1 tablet with food Orally Twice a day for 90 days Active Levothyroxine Sodium 88 MCG 1 tablet in the morning on an empty stomach Orally Once a day for 90 days Active hydrALAZINE HCl 100 MG TAKE 1 TABLET BY MOUTH THREE TIMES A DAY FOR 90 DAYS for 90 Active Albuterol Sulfate HFA 108 (90 Base) MCG/ACT 2 puffs as needed for SOB Inhalation every 4 hrs for 30 days Active Azelastine HCl 137 MCG/SPRAY INSTILL 1 S PRAY IN EACH NOSTRIL TWICE DAILY FOR 30 DAYS for 90 PRN Active Aspirin 81 81 MG 1 tablet Orally Once a day Active Bumetanide 1 MG 1 tablet Orally Once a day 08/03/2024 Active Albuterol Sulfate (2.5 MG/3ML) 0.083% Inhale one vial in nebulizer 4 times a day. Active Social History Tobacco Use: Social History [...] non-user Ex -very heavy cigarette smoker (40+/day) Vital Signs Weight 290.4 lbs 08/08/2024 Height 65 in 08/08/2024 Blood pressure systolic 130 mm Hg 08/09/19 25 Blood pressure diastolic 74 mm Hg 025 BMI 48.32 kg/m2 08/08/2024 Encounters Encounter Location Date Provider Diagnosis [facility] [address] [place] [address] 08/08/2024 Dontrell Arvizu Cellulitis L03.9 0 Assessments Encounter Date Diagnosis (ICD Code) Assessment Notes Treatment Notes Treatment Clinical Notes Section Notes 08/08/2024 Cellulitis (ICD-10 - L03.90) Plan Of Treatment Medication Medication Name Sig Start Date Stop Date Notes Cefdinir 300 MG 2 capsule Orally onc e a day for 10 days 08/08/2024 Doxycycline Monohydrate 100 MG 1 capsule Orally bid for 10 days 08/08/2024 Next Appt Details Provider Name:Beatriz Campos , 08/15/2024 11:15:00 AM, [address] [place], [address], Provider Name:Donal Salmeron, 09/26/2024 09:00:00 AM, [address] [place], [address], Medications Administered Medication Instructions Date of Administration Dosage Notes Ceftriaxone 1 gram 08/08/2024 1 g Progress Notes * Vero COLLINS MDOB:[birth year] (74 yo F)Acc No.[id number]:08/08/2024 UNLOCKED PROGRESS NOTE Progress Note Patient: Vero FIELD Provider: Alanna Arvizu ([facility]), :1950 A ge:74 Y S ex:Female Date:08/08/2024 Address:[address] [place], [place] [id number] Check In:10:03 AM ESTCheck O ut:11:28 AM EST Subjective: * Chief Complaints: * 1 . Burn on left leg. * HPI: G eneral: Left leg bruised from cast iron - not hot - zamarripa - feels like painis better but redness welling. * Medical History: H istory of COVID-19, History of tobacco abuse, COPD (chronic obstructive pulmonary disease), Chronic kidney disease, stage 3 (moderate), Spinal stenosis, Pulmonary hypertension, Other secondary pulmonary hypertension. * Surgical History: h ysterectomy , cataract-lens implants , Right Foot Surgery , Back Surgery 05/11/2021, PPM Implant- [facility] 01/12/2023, Colonoscopy & EGD - [facility] 01/2023, Lumbar/Sacral Injections- Dr. Mensah 05/31/2023, colonoscopy 07/19/24, Rt Myringotomy, t-tube placement, nasal endoscopy- Dr Viramontes 07/06/2024. * Family History: M other: Cancer, rectal, [...] heavy cigarette smoker (40+/day) * Medications: T aking Albuterol Sulfate (2.5 MG/3ML) 0.083% Nebulization Solution Inhale one vial in nebulizer 4 times a day. , Taking Albuterol Sulfate HFA 108 (90 Base) MCG/ACT Aerosol Solution 2 puffs as needed for SOB Inhalation every 4 hrs , Taking Aspirin 81(Aspirin) 81 MG Tablet Delayed Release 1 tablet Orally Once a day , Taking Azelastine HCl 137 MCG/SPRAY Solution INSTILL 1 SPRAY IN EACH NOSTRIL TWICE DAILY FOR 30 DAYS , Notes to Pharmacist: PRN, Taking Bumetanide 1 MG Tablet 1 tablet Orally Once a day , Taking Calcium 600 MG Tablet 1 tablet with meals Orally Twice a day , Taking Carvedilol 12.5 MG Tablet 1 tablet with food Orally Twice a day , Taking Clotrimazole-Betamethasone 1-0.05 % Cream APPLY SMALL AMOUNT TO AFFECTED AREA EXTERNALLY TWICE A DAY *USE SPARINGLY* , Taking hydrALAZINE HCl 100 MG Tablet TAKE 1 TABLET BY MOUTH THREE TIMES A DAY FOR 90 DAYS , Taking Levothyroxine Sodium 88 MCG Capsule 1 tablet in the morning on an empty stomach Orally Once a day , Taking Liothyronine Sodium 25 MCG Tablet TAKE 1 AND 1/2 TABLETS BY MOUTH ONCE A DAY ON AN EMPTY STOMACH , Taking Lisinopril 10 MG Tablet 1 tablet Orally Once a day , Taking Lovastatin 20 MG Tablet TAKE 1 TABLET BY MOUTH EVERY DAY AT NIGHT , Taking Magnesium 400 MG Capsule 1 capsule Orally once daily , Taking Pantoprazole Sodium 40 MG Tablet Delayed Release 1 tablet Orally twice daily , Taking Sodium Polystyrene Sulfonate - Powder as directed Orally , Taking Vitamin D , Taking Yupelri(Revefenacin) 175 MCG/3ML Solution 3 mL Inhalation Once a day , Medication List reviewed and reconciled with the patient * Allergies: P lastic Tape: hives - Side Effects - Criticality Low - Onset Date 05/11/2022, Penicillin: Allergy, Flonase: Allergy. Objective: * Vitals: W t:290.4lbs, Ht: 65 in, BP:130/74mm Hg, BMI:48.32Index, Ht-cm: 165.1 cm, Wt-k.72 kg. * Physical Examination: L eft leg wiht erytheam calor - dolor - bruising. Assessment: * Assessment: 1. Herbie tran - L03.90 (Primary) Plan: * Treatment: * Therapeutic Injections: Ceftriaxone 1 gram : 1 g (Route: Intramuscular) given by Kizzy Ram SA on right gluteus (Cellulitis) * Procedure Codes: J 0696 IM ROCEPHIN per 250 mg, Units: 4.00 , 82360 THERAP.INJ. OF MED. INTRAMUSCULAR OR SUBCUTANEOUS * Preventive Medicine: Screenings/Counseling: B NV ACTION PLAN Above Normal BMI Follow-up D ietary management education, guidance, and counseling F ALL RISK SCREENING Fall Risk Assessment: N o falls in the past year * * Electronic signature of Dontrell Arvizu MD, [id number] on 08/09/2024 at 04:46 PM EDT Sign off status: Pending Visit Status: C HK (Check Out) * Provider: Alanna Arvizu ([facility])MD Date: 0 08/08/2024 Generated for Africai ng/Jtg/eTransmitting on: 0 08/09/2024 04:46 PM EDT History and Physical Notes * HPI (History of Present Illness) Category Sub-Category Detail Notes Category Not es General Left leg bruise d from cast iron - not hot - zamarripa - feels like painis better but redness welling Physical Examination Category Sub-Category Detail Notes Section Note s Left leg wiht e rytheam calor - dolor - bruising
--- OUTSIDE RECORDS SUMMARY | 2024-08-09 09:40 | XMS_ITS | Encounter Summary ---
Author Organization [facility] Address [address] [facility] [place] [address] Care Team Providers Care Launchman Name Role Phone Jeremiah Arvizu MD Primary Care Provider [phone] Reason for Referral * Imaging (Routine) - Authorized Specialty Diagnoses / Procedures Referred By Contac t Referred To Contact Radiology Diagnoses CSF otorrhea Procedures CT orbits/sella wo IV contrast Lakshmi Viramontes MD [address] [facility] [address] [place] [address] Phone: tel: fax: [facility] [address] [place] [address] Phone: tel: fax: Referral ID Status Reason Start Date Expiration Date V isits Requested Visits Authorized [id number] Authorized 08/09/2024 02/05/2025 1 1 Reason for Visit * Reason Comments Ear Problem S/p RT tube/Nasal EN DO [facility] 07/06/24 Encounter Details Date Type Department Care Team (Late st Contact Info) Description 08/09/2024 9:40 AM EDT Office Visit [facility] [address] [facility] [address] [place] [address] Lakshmi Viramontes MD [address] [facility] [address] [place], [place] [id number] ETD (Eustachian tube dysfunction), right (Primary Dx); CSF otorrhea; Chronic myringitis of right ear Social History Tobacco Use Types Packs/Day Years Used Date Smoking Tobacco: Never Smokeless Tobacco: Never Alcohol Use Standard Drinks/Week Comments Not Currently 0 (1 standard drink = 0.6 oz pur e alcohol) Comments Unknown Sex and Gender Information Value Date Recorded Sex Assigned at Not on file Legal Sex Female 6:41 PM EDT Gender Identity Not on file Sexual Orientation Not on file documented as of this encounter Last Filed Vital Signs Vital Sign Reading Time Taken Comments Blood Pressure 105/61 08/09/2024 9:39 AM EDT Pulse 80 08/09/2024 9:39 AM EDT Temperature - - Respiratory Rate - - Oxygen Saturation - - Inhaled Oxygen Concentration - - Weight 133 kg (294 lb) 08/09/2024 9:39 AM EDT Height 162.6 cm (5' 4 ) 08/09/2024 9:39 AM EDT Body Mass Index 50.46 08/09/2024 9:39 AM EDT documented in this encounter Progress Notes * Lakshmi Viramontes MD - 08/09/2024 9:40 AM EDT Subjective Patient ID: Vero Sadler is a 74 y.o. female who presents for Ear Problem (S/p RT tube/Nasal ENDO [facility] 07/06/24) Pt reports for 2 1/2 weeks after tube placed she had severe RT milky otorrhea. Currently on mult abx for a LE infection. No family history on file. Active Ambulatory Problems Diagnosis Date Noted A-fib ([facility]) 04/21/2022 Chest pain 07/27/2016 CKD (chronic kidney disease) stage 4, GFR 15-29 ml/min ([facility]) 01/26/2024 Clinical trial exam 04/23/2022 Dyspnea 07/27/2016 Edema 07/27/2016 Essential hypertension ([facility]) 01/25/2020 Fatigue 07/27/2016 Hyperkalemia 01/26/2024 Lightheadedness 07/27/2016 Lower abdominal pain 01/30/2022 Nonsustained paroxysmal ventricular tachycardia ([facility]) 11/30/2022 Obstructive sleep apnea syndrome 10/02/2022 Other secondary pulmonary hypertension 12/15/2022 Secondary hyperparathyroidism ([facility]) 01/26/2024 Spinal stenosis of lumbar region with neurogenic claudication 01/30/2022 Spondylosis of lumbosacral region without myelopathy or radiculopathy 01/30/2022 Symptomatic bradycardia 01/01/2023 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 VT (ventricular tachycardia) ([facility]) 04/29/2022 Aspirin long-term use 05/09/2024 CAD (coronary artery disease) ([facility]) 05/09/2024 Chronic obstructive pulmonary disease ([facility]) 05/09/2024 Former smoker 05/09/2024 History of colon polyps 05/09/2024 History of tobacco abuse 05/09/2024 Hypercholesterolemia ([facility]) 05/09/2024 Hypothyroidism ([facility]) 05/09/2024 Kidney stones 05/09/2024 Morbid obesity ([facility]) 05/09/2024 Multiple pulmonary nodules 05/09/2024 Stage 3a chronic kidney disease (HCC) ([facility]) 01/31/2024 Status post lumbar spine operation 05/09/2024 Stress incontinence, female 05/09/2024 Resolved Ambulatory Problems Diagnosis Date Noted No Resolved Ambulatory Problems No Additional Past Medical History Past Surgical History: Procedure Laterality Date CATARACT EXTRACTION W/ INTRAOCULAR LENS IMPLANT COLONOSCOPY HYSTERECTOMY IR ABLATION BONE Left 04/01/2022 IR ABLATION BONE 04/01/2022 IR LUMBAR SACRAL TRANSFORAMINAL EPIDURAL FIRST LEVEL BILATERAL Bilateral 05/31/2023 IR LUMBAR SACRAL TRANSFORAMINAL EPIDURAL FIRST LEVEL BILATERAL 05/31/2023 IR LUMBAR SACRAL TRANSFORAMINAL EPIDURAL FIRST LEVEL RIGHT Right 10/07/2022 IR LUMBAR SACRAL TRANSFORAMINAL EPIDURAL FIRST LEVEL RIGHT 10/07/2022 NASAL ENDOSCOPY 07/06/2024 Dr Viramontes TYMPANOSTOMY TUBE PLACEMENT Right 07/06/2024 Dr Viramontes Allergies Allergen Reactions Penicillins Other Reaction(s): Other Yeast infection Current Outpatient Medications on File Prior to Visit Medication Sig Dispense Refill albuterol HFA 90 mcg/act inhaler Inhale 2 puffs every 4 (four) hours if needed aspirin 81 MG EC tablet Take 81 mg by mouth in the morning. Azelastine HCl 137 MCG/SPRAY solution every 12 (twelve) hours cephalexin (Keflex) 500 MG capsule TAKE 1 CAPSULE BY MOUTH EVERY 12 HOURS FOR 5 DAYS doxycycline (Monodox) 100 MG capsule levothyroxine (Synthroid, Levoxyl) 100 MCG tablet Take 100 mcg by mouth in the morning. Take beforemeals. liothyronine (Cytomel) 25 MCG tablet Take 1.5 tablets by mouth in the morning. lisinopril 10 MG tablet Take 10 mg by mouth in the morning. lovastatin (Mevacor) 20 MG tablet Take 20 mg by mouth in the morning. traMADol (Ultram) 50 MG tablet No current facility-administered medications on file prior to visit. Objective Last Recorded Vitals Vitals: 08/09/24 0939 BP: 105/61 Pulse: 80 ENT Physical Exam Constitutional Appearance: patient appears well-developed, well-nourished and well-groomed, Communication/Voice: communication appropriate for developmental age; vocal quality normal; Ear Ear comments: RT - TIP&P with scant TM inflammation at base. Assessment/Plan Diagnoses and all orders for this visit: ETD (Eustachian tube dysfunction), right - ciprofloxacin-dexAMETHasone (CiproDEX) otic suspension; Administer 4 drops into the right ear in the morning and 4 drops before bedtime. Do all this for 7 days. CSF otorrhea Overall looks good, but prolonged otorrhea immediately after tube placed concerning for a CSF leak.I will check a CT temporal bone to eval for a tegmen defect. Cirprodex for mild RT myringitis documented in this encounter Miscellaneous Notes * Addendum Note - Marilin Bearden - 08/09/2024 9:40 AM EDTAddended by: MARILIN BEARDEN on: 08/09/2024 10:23 AM Modules accepted: Orders documented in this encounter Plan of Treatment Upcoming Encounters Date Type Department Care Team (Late st Contact Info) Description 08/30/2024 9:50 AM EDT Office Visit [facility] [address] [facility] [address] [place] [address] Lakshmi Viramontes MD [address] [facility] [address] [place], [place] [id number] Scheduled Orders Name Type Priority Associated Diagnoses Orde r Schedule CT orbits/sella wo IV contrast Imaging Routine CSF otorrhea Expected: 08/09/2024, Expires: 08/09/2025 documented as of this encounter Visit Diagnoses Diagnosis ETD (Eustachian tube dysfunction), right- Primary CSF otorrhea Chronic myringitis of right ear documented in this encounter Care Teams Launchman Relationship Specialty Start Date End Date Jeremiah Arvizu MD [address] [place] [address] PCP - General Family Medicine 08/02/24 documented as of this encounter
--- OUTSIDE RECORDS SUMMARY | 2024-08-09 11:45 | XMS_ITS ---
Author Organization [facility] in [place] Address [address] [place] [address] Care Team Providers Care Kapok And Cotton Machine Operator Name Role Phone Dontrell Arvizu Primary Care Provider REASON FOR VISIT black spot on leg now seen 08/08 Encounters Encounter Location Date Provider Diagnosis [facility] [address] [place] [address] 08/09/2024 Dontrell Arvizu Plan Of Treatment Next Appt Details Provider Name:Dontrell Arvizu, 03:45:00 PM, [address] [place], [address], Provider Name:Beatriz Campos , 08/15/2024 11:15:00 AM, [address] [place], [address], Provider Name:Donal Salmeron, 09/26/2024 09:00:00 AM, [address] [place], [address], Progress Notes * Vero COLLINS MDOB:[birth year] (74 yo F)Acc No.[id number]:08/09/2024 UNLOCKED PROGRESS NOTE Progress Note Patient: Vero FIELD Provider[facility]1950 A ge:74 Y S ex:Female Date:08/09/2024 Address:[address] [place] [address] [address], [place], [place] Subjective: * Chief Complaints: * 1 . Black spot on leg now seen 08/08. * Medical History: Objective: * Vitals: Assessment: Plan: * Treatment: * * Electronic signature of Dontrell Arvizu MD, [id number] on 08/09/2024 at 09:37 AM EDT Sign off status: Pending Visit Status: P EN (Pending) * Provider: Alanna Arvizu ([facility])MD Date: 0 08/09/2024 Generated for Katalina gardiner/Jaycob/eTransmitting on: 0 08/09/2024 09:37 AM EDT
--- OUTSIDE RECORDS SUMMARY | 2024-08-09 16:46 | XMS_ITS | Encounter Summary ---
Author Organization [facility] Address [address] [place] [place] [address] Care Team Providers Care Statistical Technician Name Role Phone Jeremiah Arvizu MD Primary Care Provider [phone] Encounter Details Date Type Department Care Team (Late st Contact Info) Description 08/04/2022 Community Orders [address] [place] [address] Jose Angel Catherine MD [address] [place] [address] Social History Tobacco Use Types Packs/Day Years Used Date Smoking Tobacco: Former Cigarettes Q uit: 2008 Passive Smoke Exposure: Never Smokeless Tobacco: Never Alcohol Use Standard Drinks/Week Comments Not Currently 0 (1 standard drink = 0.6 oz pur e alcohol) PHQ-2 Answer Date Recorded Patient Health Questionnaire-2 Score 0 07/28/2022 Sex and Gender Information Value Date Recorded Sex Assigned at Not on file Gender Identity Not on file Sexual Orientation Not on file Job Start Date Occupation Industry Not on file Not on file Not on file COVID-19 Exposure Response Date Recorded In the last 10 days, have yo u been in contact with someone who was confirmed or suspected to have Coronavirus/COVID-19? No / Unsure 08/04/2022 10:31 AM EDT documented as of this encounter Plan of Treatment Upcoming Encounters Date Type Department Care Team (Late st Contact Info) Description 08/25/2024 12:00 PM EDT Appointment [facility] [address] [place] [address] [place] [phone] documented as of this encounter Visit Diagnoses Not on filedocumented in this encounter Care Teams Statistical Technician Relationship Specialty Start Date End Date Jeremiah Arvizu MD [address] [facility] [place] [address] PCP - General 01/26/22 documented as of this encounter
--- OUTSIDE RECORDS SUMMARY | 2024-08-09 16:46 | XMS_ITS | Clinical Summary ---
Author Organization [facility] Address [address] [place] [address] Care Team Providers Care Market Research Associate Name Role Phone Jeremiah Arvizu MD Primary Care Provider [phone] Allergies Active Allergy Reactions Criticality Noted Date Comments Penicillins Medium 11/28/2021 Other Reaction(s): Other Yeast infection Medications albuterol HFA 90 mcg/act inhaler Inhale 2 puffs every 4 (four) hours if needed Active aspirin 81 MG EC tablet Take 81 mg by mouth in the morning. Active levothyroxine (Synthroid, Levoxyl) 100 MCG tablet Take 100 mcg by mouth in the morning. Take before meals. Active liothyronine (Cytomel) 25 MCG tablet Take 1.5 tablets by mouth in the morning. Active lovastatin (Mevacor) 20 MG tablet Take 20 mg by mouth in the morning. Active lisinopril 10 MG tablet Take 10 mg by mouth in the morning. 4 Active traMADol (Ultram) 50 MG tablet 4 Active Azelastine HCl 137 MCG/SPRAY solution every 12 (twelve) hours 5 Active cephalexin (Keflex) 500 MG capsule TAKE 1 CAPSULE BY MOUTH EVERY 12 HOURS FOR 5 DAYS 5 Active doxycycline (Monodox) 100 MG capsule 5 Active ciprofloxacin-d exAMETHasone (CiproDEX) otic suspensionIndic ations:ETD (Eustachian tube dysfunction), right Administer 4 drops into the right ear in the morning and 4 drops before bedtime. Do all this for 7 days. 7.5 mL 5 08/17/19 25 Active Calcium Carb-Cholecalci ferol 600-10 MG-MCG tablet Take 2 tablets by mouth in the morning. 4 07/20/19 Active Problems Problem Noted Date Diagnosed Date Aspirin long-term use 05/09/2024 CAD (coronary artery disease) 05/09/2024 Chronic obstructive pulmonary disease 05/09/2024 Former smoker 05/09/2024 History of colon polyps 05/09/2024 History of tobacco abuse 05/09/2024 Hypercholesterolemia 05/09/2024 Hypothyroidism 05/09/2024 Kidney stones 05/09/2024 Morbid obesity 05/09/2024 Multiple pulmonary nodules 05/09/2024 Status post lumbar spine operation 05/09/2024 Stress incontinence, female 05/09/2024 Stage 3a chronic kidney disease (HCC) 01/31/2024 CKD (chronic kidney disease) stage 4, GFR 15-29 ml/min 01/26/2024 Hyperkalemia 01/26/2024 Secondary hyperparathyroidism 01/26/2024 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 Symptomatic bradycardia 01/01/2023 Other secondary pulmonary hypertension Nonsustained paroxysmal ventricular tachycardia 11/30/2022 Obstructive sleep apnea syndrome 10/02/2022 Overview (05/05/2024): SOBIA=17.7 events/hour; Pranav SaO2=76%; Cixkkh=181.0 lbs; BMI=52.7 kg/m2, Home Sleep Apnea Testing on 09/25/2022 at [facility] [place] (ventricular tachycardia) 04/29/2022 Overview (05/05/2024): Added automatically from request for surgery [id number] Clinical trial exam 04/23/2022 Overview (05/05/2024): Added automatically from request for surgery [id number] A-fib 04/21/2022 Lower abdominal pain 01/30/2022 Spinal stenosis of lumbar re gion with neurogenic claudication 01/30/2022 Spondylosis of 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 or radiculopathy 01/30/2022 Essential hypertension 01/25/2020 Chest pain 07/27/2016 Dyspnea 07/27/2016 Edema 07/27/2016 Fatigue 07/27/2016 Lightheadedness 07/27/2016 Encounters Date Type Department Care Team Description 08/09/2024 9:40 AM EDT Office Visit [facility] [address] [facility] [address] [place] [address] Lakshmi Viramontes MD ETD (Eustachian tube dysfunction), right (Primary Dx); CSF otorrhea; Chronic myringitis of right ear 08/09/2024 Bamboo flowsheet [facility] [address] [facility] [address] [place] [address] Lakshmi Viramontes MD 08/09/2024 Travel 06/26/2024 Clinisync Result Encounter [facility] External Department Unsolicited Lakshmi Vriamontes MD 06/23/2024 Orders Only [facility] [address] [facility] [address] [place] [address] Jeremiah Arvizu MD 06/20/2024 9:40 AM EDT Office Visit [facility] [address] [facility] [address] [place] [address] Lakshmi Viramontes MD OME (otitis media with effusion), right (Primary Dx); ETD (Eustachian tube dysfunction), right; 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 06/20/2024 Bamboo flowsheet [facility] [address] [facility] [address] [place] [address] Lakshmi Viramontes MD 06/20/2024 Travel from Last 3 Months Social History Tobacco Use Types Packs/Day Years Used Date Smoking Tobacco: Never Smokeless Tobacco: Never Tobacco Cessation:Counseling Given: Not Answered Alcohol Use Standard Drinks/Week Comments Not Currently 0 (1 standard drink = 0.6 oz pur e alcohol) Comments Unknown Sex and Gender Information Value Date Recorded Sex Assigned at Not on file Legal Sex Female 6:41 PM EDT Gender Identity Not on file Sexual Orientation Not on file Last Filed Vital Signs Vital Sign Reading [...] Mass Index 50.46 08/09/2024 9:39 AM EDT Plan of Treatment Upcoming Encounters Date Type Department Care Team (Late st Contact Info) Description 08/30/2024 9:50 AM EDT Office Visit [facility] [address] [facility] [address] [place] [address] Lakshmi Viramontes MD [address] [facility] [address] [place] [address] Health Maintenance Due Date Last Done Comments CT Colonography 1951 FIT-DNA 1951 FIT 1951 FOBT 1951 Sigmoidoscopy 1951 Mammogram 1991 Pneumococcal Vaccine: 65+ Ye ars (1 of 1 - PCV) 2001 Influenza Vaccine (Season Ended) 2024 Colonoscopy 02/09/2033 02/09/2023, 01/14, 07/06/2018 Colorectal Cancer Screening 02/09/2033 Medical Devices Implanted Type Area Ribbon Lap Machine Tender Device Identifier Shelf Expiration Date Model / Serial / Lot Cardiac Pacemaker Cardiac Pacemaker Heart Procedures Procedure Name Priority Date/Time Associated Diagnosis Comments [facility] APTT Routine 06/26/2024 9:40 AM EDT [facility] PROTHROMBIN TIME INR W/O COUM Routine 06/26/2024 9:40 AM EDT SCANNED LABS Routine 06/20/2024 8:24 AM EDT from Last 3 Months Results * [facility] PROTHROMBIN TIME INR W/O COUM (06/26/2024 9:40 AM EDT) PROTHROMBIN TIME 11.4 9.0 - 11.6 sec [facility] TBH INR 1.08 [facility] Comment: DESIRED INR: 2.0-3.0 CONDITIONS NOT LISTED BELOW 2.5-3.5 FOR PROSTHETIC HEART VALVE REPLACEMENT 2.5-3.5 RECURRENT THROMBOSIS 06/26/2024 9:40 AM EDT 06/26/2024 9:43 AM EDT Narrative [facility] - 06/26/2024 10:23 AM EDT Lakshmi Viramontes MD CLINISYNC Final Result Performing Organization Address City/[facility]/ZIP Co de Phone Number [facility] * [facility] APTT (06/26/2024 9:40 AM EDT) PARTIAL THROMBOPLASTIN TIME 29.3 22.3 - 36.2 sec [facility] 06/26/2024 9:40 AM EDT 06/26/2024 9:43 AM EDT Narrative [facility] - 06/26/2024 10:23 AM EDT Lakshmi Viramontes MD CLINISYNC Final Result Performing Organization Address [facility] Co de Phone Number [facility] * SCANNED LABS (06/20/2024 8:24 AM EDT) Jeremiah Arvizu MD LAB CHG PERFORMABLES Final Resu lt from Last 3 Months Insurance MEDICARE [facility] [employer] INSURANCE [facility] Care Teams Market Research Associate Relationship Specialty Start Date End Date Jeremiah Arvizu MD [address] [place] [address] PCP - General Family Medicine 08/02/24
--- OUTSIDE RECORDS SUMMARY | 2024-08-09 16:46 | XMS_ITS | Referral Summary ---
Author Organization [facility] Address [address] [place] [address] Care Team Providers Care Wardrobe Custodian Name Role Phone Jeremiah Arvizu MD Primary Care Provider [phone] Encounters Date Type Department Care Team Description 05/12/2024 10:00 AM EST Ancillary Procedure [facility] [address] [place] [phone] Adjustment and management of cardiac pacemaker from Last 3 Months Allergies Active Allergy Reactions Criticality Noted Date Comments Penicillins Other Medium 11/28/2021 Yeast infection Medications Medication Sig Dispensed Refills Start Date End Date Status hydrALAZINE (Apresoline) 100 mg tablet Take 100 mg by mouth in the morning, at noon, and at bedtime. Active levothyroxine (Synthroid, Levoxyl) 100 mcg tablet Take 100 mcg by mouth before breakfast. Active liothyronine (Cytomel) 25 mcg tablet Take 1.5 tablets by mouth in the morning. Active lovastatin (Mevacor) 20 mg tablet Take 20 mg by mouth in the morning. Active aspirin 81 mg EC tablet Take 81 mg by mouth in the morning. Active albuterol 90 mcg/actuation inhaler Inhale 2 puffs every 4 (four) hours if needed for shortness of breath. Active carvedilol (Coreg) 12.5 mg tabletIndications: Essential hypertension Take 1 tablet (12.5 mg) by mouth in the morning and at bedtime. 60 tablet 02/18/2022 Active bumetanide (Bumex) 1 mg tabletIndications: Resistant hypertension,Benig n hypertensive heart and CKD, stage 3 (GFR 30-59), w CHF (CMS/HCC) Take 1 tablet (1 mg) by mouth in the morning. 90 tablet 3 02/24/2022 Active revefenacin (Yupelri) 175 mcg/3 mL nebulizer solution Take 175 mcg by nebulization if needed each day. Active methylcellulose, laxative, (CitruceL Sugar Free) powderIndications: Loose stools Mix 1 tablespoon in 8 oz (240 mL) of cold water. Take by mouth once daily. Increase frequency as needed up to 3 times daily. Start with a low dose and slowly increase to prevent worse bloating. 479 g 3 02/16/2023 Active pantoprazole (ProtoNix) 40 mg EC tabletIndications: Duodenitis TAKE 1 TABLET BY MOUTH ONCE EVERYDAY BEFORE BREAKFAST *DO NOT CRUSH/CHEW/SPLIT* 90 tablet 1 03/04/2023 Active traMADol (Ultram) 50 mg tablet TAKE 1 TABLET BY MOUTH TWICE A DAY NEEDED FOR 30 DAYS 08/09/2023 Active lisinopril 10 mg tabletIndications: Essential hypertension TAKE 1 TABLET BY MOUTH EVERY DAY IN THE MORNING 90 tablet 3 03/02/2024 Active calcium carbonate-vitamin D3 (Calcium with Vitamin D) 600 mg-10 mcg (400 unit) tabletIndications: Other osteoporosis, unspecified pathological fracture presence,Vitamin D deficiency Take 2 tablets by mouth in the morning. 60 tablet 11 07/20/2023 07/19/2024 Active Problems Problem Noted Date Diagnosed Date Aspirin long-term use 05/09/2024 CAD (coronary artery disease) 05/09/2024 Chronic obstructive pulmonary disease 05/09/2024 Former smoker 05/09/2024 History of colon polyps 05/09/2024 History of tobacco abuse 05/09/2024 Hypercholesterolemia 05/09/2024 Hypothyroidism 05/09/2024 Kidney stones 05/09/2024 Morbid obesity 05/09/2024 Multiple pulmonary nodules 05/09/2024 Status post lumbar spine operation 05/09/2024 Stress incontinence, female 05/09/2024 Stage 3a chronic kidney disease 01/31/2024 Hyperkalemia 01/26/2024 CKD (chronic kidney disease) stage 4, GFR 15-29 ml/min 01/26/2024 Secondary hyperparathyroidism 01/26/2024 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 Symptomatic bradycardia 01/01/2023 Assessment & Plan (01/01/2023 5:19 PM EDT): Pt with noted bradycardia with heart rates in 40-50's with noted lightheadedness, dizziness, near syncope. D/W pt with previous Atrial tach and NSVT and she has intermittent palpitations I do not want to decrease the beta abdiel dose any further and will d/w Dr Posada regarding possible perm pacemaker implantation for Tachy- rhonda syndrome. She voiced understanding and agreement Other secondary pulmonary hypertension 3 12/15/2022 KATIE on CPAP 12/15/2022 Nonsustained paroxysmal ventricular tachycardia 11/30/2022 Assessment & Plan (01/01/2023 5:22 PM EDT): Continue coreg 6.25 mg bid Obstructive sleep apnea 10/02/2022 09/26/19 23 Overview (10/02/2022): SOBIA=17.7 events/hour; Pranav SaO2=76%; Ygfrus=278.0 lbs; BMI=52.7 kg/m2, Home Sleep Apnea Testing on 09/25/2022 at [facility] [place] (ventricular tachycardia) 04/29/2022 Overview (04/29/2022): Added automatically from request for surgery [id number] Clinical trial exam 04/23/2022 Overview (04/23/2022): Added automatically from request for surgery [id number] A-fib 04/21/2022 Spinal stenosis of lumbar re gion with neurogenic claudication 01/30/2022 Lower abdominal pain 01/30/2022 Spondylosis of 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 or radiculopathy 01/30/2022 Essential hypertension 01/25/2020 Chest pain 07/27/2016 Dyspnea 07/27/2016 Edema 07/27/2016 Fatigue 07/27/2016 Lightheadedness 07/27/2016 Immunizations Name Administration Dates Next Due Pfizer SARS-CoV-2 Vaccination 01/04/2021, 021 Unspecified Sars-Cov-2 Vaccination 01/04/2021, Social History Tobacco Use Types Packs/Day Years Used Date Smoking Tobacco: Former Cigarettes Q uit: 2008 Passive Smoke Exposure: Never Smokeless Tobacco: Never Tobacco Cessation:Counseling Given: Not Answered Alcohol Use Standard Drinks/Week Comments Yes 0 (1 standard drink = 0.6 oz pur e alcohol) rarely Humiliation, Afraid, Rape, and Kick questionnair e Answer Date Recorded Within the last year, have y ou been afraid of your partner or ex-partner? No 07/09/2023 Emotionally Abused Not on file 07/09/2023 Physically Abused Not on file 07/09/2023 Sexually Abused Not on file 07/09/2023 Overall Financial Resource Strain (CARDIA) Answe r Date Recorded How hard is it for you to pa y for the very basics like food, housing, medical care, and heating? Not hard at all 01/05/2023 PHQ-2 Answer Date Recorded Patient Health Questionnaire-2 Score 0 07/20/2023 Transportation Answer Date Recorded In the past 12 months, has l ack of transportation kept you from medical appointments or from getting medications? No 01/05/2023 Lack of Transportation (Non-Medical) Not on file 01/05/2023 Housing Stability Vital Sign Answer Kaleb e Recorded Unable to Pay for Housing in the Last Year Not o n file 01/05/2023 Number of Places Lived in the Last Year Not on f ile 01/05/2023 In the last 12 months, was t here a time when you did not have a steady place to sleep or slept in a detention (including now)? No 01/05/2023 Hunger Vital Sign Answer Date Recorded Within the past 12 months, y ou worried that your food would run out before you got the money to buy more. Never true 01/06/20 23 Ran Out of Food in the Last Year Not on file 01/05/2023 Sex and Gender Information Value Date Recorded Sex Assigned at Not on file Gender Identity Not on file Sexual Orientation Not on file Job Start Date Occupation Industry Not on file Not on file Not on file Last Filed Vital Signs Vital Sign Reading Time Taken Comments Blood Pressure 187/90 05/09/2024 11:41 AM EST Pulse 83 05/09/2024 11:41 AM EST Temperature 36 C (96.8 F) 02/09/2023 2:25 PM EST Respiratory Rate 18 11/23/2023 1:30 PM EDT Oxygen Saturation 97% 05/09/2024 11:41 AM EST Inhaled Oxygen Concentration - - Weight 134 kg (295 lb) 05/09/2024 11:41 AM EST Height 162.6 cm (5' 4 ) 05/09/2024 11:41 AM EST Body Mass Index 50.64 05/09/2024 11:41 AM EST Plan of Treatment Upcoming Encounters Date Type Department Care Team (Late st Contact Info) Description 08/25/2024 12:00 PM EDT Appointment [facility] [address] [place] [address] [place] [address] Medical Devices Implanted Type Area Split Leather Mosser Device Identifier Shelf Expiration Date Model / Serial / Lot Lead,Solia,S 60, - [id number] - [id number] Implanted:Qty : 1 on 01/12/2023 by Constantino Bullock MD at [facility] Lead [employer] [id number] 12/12/2024 [id number] / [id number] 75 / Lead,Solia,S 53, - [id number] - [id number] Implanted:Qty : 1 on 01/12/2023 by Constantino Bullock MD at [facility] Lead [employer] [id number] 12/12/2024 [id number] / [id number] 64 / Pacer Vincent Washington,Dr West - [id number] - [id number] Implanted:Qty : 1 on 01/12/2023 by Constantino Bullock MD at [facility] Pacemaker Biotronik [id number] 06/12/2024 [id number] / [id number] 87 / Superion Ids - 10mm Implanted:Qty : 1 on 11/30/2022 by Jose Angel Mensah MD at [facility] N/A: Spine Lumbar [employer] [id number] 08/24/2026 [id number] / / [id number] Superion Ids - 12mm Implanted:Qty : 1 on 11/30/2022 by Jose Angel Mensah MD at [facility] N/A: Spine Lumbar [employer] [id number] 05/27/2027 [id number] / / [id number] Procedures Procedure Name Priority Date/Time Associated Diagnosis Comments CARDIAC DEVICE CHECK CHECK - REMOTE Routine 07/18/2024 11:17 AM EDT Adjustment and management of cardiac pacemaker DIAGNOSTIC COLONOSCOPY Routine 02/09/2023 2:19 PM EST Abdominal pain, unspecified abdominal location Change in bowel habits Chronic diarrhea Family history of colon cancer in father Family history of rectal cancer Family history of Crohn's disease from Last 3 Months or Most Recently Relevant to Health Maintenance Results * CARDIAC DEVICE CHECK - REMOTE - PACEMAKER (07/18/2024 11:17 AM EDT) Irvin Posada MD CV IMPLANTABLE CARDI AC DEVICE PROCEDURES CPACS * Diagnostic Colonoscopy (02/09/2023 2:19 PM EST) Anatomical Region Laterality Modality Endoscopy Narrative 02/09/2023 8:54 PM EST Table formatting from the original result was not included. Colonoscopy Procedure Note Procedure: Colonoscopy with biopsies Indications: 72 y.o F presenting with abdominal pain, bloating, and diarrhea. She reports a family history of colon cancer in her father, and Crohn's disease in her mother. Sedation: MAC Attending Physician: Dr. Dario Calderon Trading Specialist: Rachel Prado, Fellow Procedure Details Informed [...] present and scrubbed for the entire procedure. Natalia Kuhn CNP ENDOSCOPY PRO CEDURE ORDERABLES from Last 3 Months or Most Recently Relevant to Health Maintenance Care Teams Wardrobe Custodian Relationship Specialty Start Date End Date Jeremiah Arvizu MD [address] [facility] [place] [address] PCP - General 01/26/22
--- OUTSIDE RECORDS SUMMARY | 2024-08-09 16:46 | XMS_ITS | Encounter Summary ---
Author Organization [facility] Address [address] [facility] [place] [address] Care Team Providers Care Gym Attendant Name Role Phone Jeremiah Arvizu MD Primary Care Provider + Jeremiah Arvizu MD Primary Care Provider + Encounter Details Date Type Department Care Team ([facility] Contact Info) Description 06/23/2024 Orders Only [facility] [address] [facility] [address] [place] [address] Jeremiah Arvizu MD [address] [place] [address] Social History Tobacco Use Types Packs/Day Years [...] on file documented as of this encounter Plan of Treatment Upcoming Encounters Date Type Department Care Team (Late Contact Info) Description 08/30/2024 9:50 AM EDT Office Visit [facility] [address] [facility] [address] [place] [address] Lakshmi Viramontes MD 112 [facility] [address] [place] [address] documented as of this encounter Procedures Procedure Name Priority Date/Time Associated Diagnosis Comments SCANNED LABS Routine 06/20/2024 8:24 AM EDT documented in this encounter Results * SCANNED LABS (06/20/2024 8:24 AM EDT) us Jeremiah Arvizu MD LAB CHG PERFORMABLES Final Resu lt documented in this encounter Visit Diagnoses Not on filedocumented in this encounter Care Teams Gym Attendant Relationship Specialty Start Date End Date Jeremiah Arvizu MD PCP - General Family Medicine 05/09/24 08/01/24 [place] [address] [place] [phone] PCP - General Family Medicine 08/02/24 documented as of this encounter
--- OUTSIDE RECORDS SUMMARY | 2024-08-09 16:46 | XMS_ITS | Encounter Summary ---
Author Organization [facility] Address [address] [place] [address] Care Team Providers Care Registered Radiographer Name Role Phone Jeremiah Arvizu MD Primary Care Provider +-[phone] Jeremiah Arvizu MD Primary Care Provider +-4 Encounter Details Date Type Department Care Team (Late st Contact Info) Description 05/05/2024 Orders Only [facility] [address] [facility] [address] [place] [address] Hector Ellison MD [address] [place] [address] Social History Tobacco Use Types Packs/Day Years Used Date Smoking Tobacco: Never Assessed Comments Unknown Sex and Gender Information Value [...] [facility] [address] [facility] [address] [place] [address] Lakshmi Viramontes MD [address] [facility] [address] [place] [address] documented as of this encounter Procedures Procedure Name Priority Date/Time Associated Diagnosis Comments AUDIOMETRY WITH TYMPANOMETRY Routine 05/04/2024 2:06 PM EST documented in this encounter Results * Audiometry with tympanometry (05/04/2024 2:06 PM EST) us Hector [place] MD AUDIOLOGY SERVICES ORDER HALEY Final Result documented in this encounter Visit Diagnoses Not on filedocumented in this encounter Care Teams Registered Radiographer Relationship Specialty Start Date End Date Jeremiah Arvizu MD PCP - General Family Medicine 05/09/24 08/01/24 Jeremiah Arvizu MD [address] [place] [address] PCP - General Family Medicine 08/02/24 documented as of this encounter
--- OUTSIDE RECORDS SUMMARY | 2024-08-09 16:46 | XMS_ITS | Clinical Summary ---
Author Organization [facility] Address [address] [place] [address] Phone Care Team Providers Care Dental Office Coordinator Name Role Phone Unavailable Primary Care Provider Unavailabl e Social History Tobacco Use Types Packs/Day Years Used Date Smoking Tobacco: Never Assessed Comments Unknown Sex and Gender Information Value Date Recorded Sex Assigned at Not on file Legal Sex Female 7:26 PM EST Gender Identity Not on file Sexual Orientation Not on file Plan of Treatment Not on file
--- OUTSIDE RECORDS SUMMARY | 2024-08-09 16:46 | XMS_ITS | Encounter Summary ---
Author Organization [facility] Address [address] [facility] [place] [address] Care Team Providers Care Agency Service Coordinator Name Role Phone Jeremiah Arvizu MD Primary Care Provider [phone] Encounter Details Date Type Department Care Team (Latest Contact Info) Description 08/09/2024 Travel Social History Tobacco Use Types Packs/Day Years [...] EDT Office Visit [facility] [address] [facility] [address] [place] [address] Lakshmi Viramontes MD 112 [facility] [address] [place] [address] documented as of this encounter Visit Diagnoses Not on filedocumented in this encounter Care Teams Agency Service Coordinator Relationship Specialty Start Date End Date Jeremiah Arvizu MD [address] [place] [facility] [place] [address] PCP - General Family Medicine 08/02/24 documented as of this encounter
--- OUTSIDE RECORDS SUMMARY | 2024-08-09 16:46 | XMS_ITS | Encounter Summary ---
Author Organization [facility] Address [address] [facility] [place] [address] Care Team Providers Care Marketing Area Manager Name Role Phone Jeremiah Arvizu MD Primary Care Provider [phone] Encounter Details Date Type Department Care Team ([facility] Contact Info) Description 08/09/2024 Bamboo flowsheet [facility] [address] [facility] [address] [place] [address] Lakshmi Viramontes MD 112 [facility] [address] [place], [place] [address] Social History Tobacco Use Types Packs/Day Years [...] Upcoming Encounters Date Type Department Care Team ([facility] Contact Info) Description 08/30/2024 9:50 AM EDT Office Visit [facility] [address] [facility] [address] [place] [address] Lakshmi Viramontes MD 112 [facility] [address] [place], [place] [id number] documented as of this encounter Visit Diagnoses Not on filedocumented in this encounter Care Teams Marketing Area Manager Relationship Specialty Start Date End Date Jeremiah Arvizu MD [address] [facility] [place] [address] PCP - General Family Medicine 08/02/24 documented as of this encounter
--- OUTSIDE RECORDS SUMMARY | 2024-08-09 16:46 | XMS_ITS | Clinical Summary ---
Author Organization [facility] Address [address] [id number] Care Team Providers Care Anodiser Name Role Phone Jeremiah Arvizu MD Primary Care Provider [phone] Social History Tobacco Use Types Packs/Day Years Used Date Smoking Tobacco: Never Assessed Comments Unknown Sex and Gender Information Value Date Recorded Sex Assigned at Not on file Legal Sex Female 1:53 PM EDT Gender Identity Female Sexual Orientation Not on file Plan of Treatment Health Maintenance Due Date Last Done Comments DEXA SCAN DISCUSSION 1950 HEPATITIS C VIRUS SCREENING 1950 TETANUS 1951 TDAP (ADULT) 1970 CERVICAL CANCER SCREENING DISCUSSION 02/20/1972 LIPID SCREENING 1991 MAMMOGRAM SCREENING DISCUSSION 1991 COLORECTAL CANCER SCREENING DISCUSSION 02/20/1996 PNEUMOCOCCAL VACCINE SERIES (1 of 1 - PCV) 2001 ZOSTER (SHINGLES) VACCINE (1 of 2) 2001 COVID-19 VACCINE ( - 2023-2 5 season) 2023 INFLUENZA VACCINE (Season Ended) 2024 RSV VACCINE (1 - 1-dose 75+ series) 2026 HEP B VACCINE Aged Out No longer elig ible based on patient's age to complete this topic Insurance MEDICARE A AND B GENERIC PLAN Care Teams Anodiser Relationship Specialty Start Date End Date Jeremiah Arvizu MD PCP - General Family Medicine 06/26/16
--- OUTSIDE RECORDS SUMMARY | 2024-08-09 16:46 | XMS_ITS | Encounter Summary ---
Author Organization [facility] Address [address] [place] [address] Care Team Providers Care Senior Energy Analyst Name Role Phone Jeremiah Arvizu MD Primary Care Provider [phone] Encounter Details Date Type Department Care Team (Late st Contact Info) Description 08/04/2022 Community Orders LISA HOLLINS [facility] 1,2,[address] [place] [address] [id number] Linn Álvarez PA [address] [place], [place] [phone] Social History Tobacco Use Types Packs/Day Years [...] Info) Description 08/25/2024 12:00 PM EDT Appointment [facility] [address] [place] [address] [place] [id number] documented as of this encounter Visit Diagnoses Not on filedocumented in this encounter Care Teams Senior Energy Analyst Relationship Specialty Start Date End Date Jeremiah Arvizu MD [address] [facility] [place] [id number] PCP - General 01/26/22 documented as of this encounter
--- OUTSIDE RECORDS SUMMARY | 2024-08-09 16:46 | XMS_ITS | Clinical Summary ---
Author Organization [facility] Address [address] [place] [address] Care Team Providers Care Dog Catcher Name Role Phone Jeremiah Arvizu MD Primary Care Provider [phone] Allergies Active Allergy Reactions Criticality Noted Date [...] Plan (01/05/2023 6:58 AM EDT): D/W Dr Albino CAMARGO and he agrees that pt would benefit [...] 23 Overview (10/02/2022): SOBIA=17.7 events/hour; Pranav SaO2=76%; Eowvrc=040.0 lbs; BMI=52.7 kg/m2, Home Sleep Apnea Testing on 09/25/2022 at [facility] [place] (ventricular tachycardia) 04/29/2022 Overview (04/29/2022): Added automatically from request for surgery [id number] Clinical trial exam 04/23/2022 Overview (04/23/2022): Added automatically from request for surgery [id number] A-fib 04/21/2022 Spinal stenosis of lumbar re gion with neurogenic claudication 01/30/2022 Lower abdominal pain 01/30/2022 Spondylosis of 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 or radiculopathy 01/30/2022 Essential hypertension 01/25/2020 Chest pain 07/27/2016 Dyspnea 07/27/2016 Edema 07/27/2016 Fatigue 07/27/2016 Lightheadedness 07/27/2016 Encounters Date Type Department Care Team Description 05/12/2024 10:00 AM EST Ancillary Procedure [facility] [address] [place] [id number] Adjustment and management of cardiac pacemaker from Last 3 Months Immunizations Name Administration Dates Next Due Pfizer SARS-CoV-2 Vaccination 01/04/2021, 021 Unspecified Sars-Cov-2 Vaccination 01/04/2021, Family History Medical History Relation Name Comments malsaul neoplastic disease Daughter Hyperlipidemia Father Hypertension Father malig neoplastic disease Father Coronary artery disease Mother cerebrovascular accident Mother malig neoplastic disease Mother renal disease Mother Relation Name Status Comments Daughter Father Mother Social History Tobacco Use Types Packs/Day Years [...] place to sleep or slept in a chcf (including now)? No 01/05/2023 Hunger Vital Sign [...] Info) Description 08/25/2024 12:00 PM EDT Appointment [facility] [address] [place] [address] [place] [phone] Health Maintenance Due Date Last Done Comments CT Colonography 1951 FIT-DNA 1951 FIT 1950 FOBT 1950 Medicare Annual Wellness (AWV) 1950 Sigmoidoscopy 1950 Pneumococcal Vaccine: 65+ Years (1 of 2 - PCV) 1957 Depression Screening 1963 Adult Tetanus 1973 Mammogram 1991 Zoster Vaccines (1 of 2) 2001 Fall Risk Screening 02/20/2016 COVID-19 Vaccine ( season) 2023 01/04/2021, 01/04/2021, 12/17/2020, Additional history exists Influenza Vaccine (Season Ended) 2024 Colonoscopy 02/09/2033 02/09/2023, 01/14, 07/06/2018 Colorectal Cancer Screening 02/09/2033 HIB Vaccines Aged Out No longer eligi ble based on patient's age to complete this topic HPV Vaccines Aged Out No longer eligi ble based on patient's age to complete this topic IPV Vaccines Aged Out No longer eligi ble based on patient's age to complete this topic Meningococcal B Vaccine Aged Out No l onger eligible based on patient's age to complete this topic Meningococcal Vaccine Aged Out No shreya jacky eligible based on patient's age to complete this topic Rotavirus Vaccines Aged Out No longer eligible based on patient's age to complete this topic Medical Devices Implanted Type Area Cinder Worker Device Identifier Shelf Expiration Date Model / Serial / Lot LeadNito S 60, - [id number] - [id number] Implanted:Qty : 1 on 01/12/2023 by Constantino Bullock MD at [facility] Lead [employer] [id number] 12/12/2024 [id number] / [id number] / LeadNitoS 53, - [id number] - [id number] Implanted:Qty : 1 on 01/12/2023 by Constantino Bullock MD at [facility] [employer] [id number] 12/12/2024 [id number] / [id number] 64 / Pacer Vincent Washington,Dr West - [id number] - [id number] Implanted:Qty : 1 on 01/12/2023 by Constantino Bullock MD at [facility] Pacemaker [employer] [id number] 06/12/2024 [id number] / [id number] 87 / Superion Ids - 10mm Implanted:Qty : 1 on 11/30/2022 by Jose Angel Mensah MD at [facility] N/A: Spine Lumbar ISH [id number] 08/24/2026 [id number] / / [id number] Superion Ids - 12mm Implanted:Qty : 1 on 11/30/2022 by Jose Angel Mensah MD at [facility] N/A: Spine Lumbar ISH [id number] 05/27/2027 [id number] / / [id number] Procedures Procedure Name Priority Date/Time Associated Diagnosis [...] Sedation: MAC Attending Physician: Dr. Dario Calderon Web Content Editor: Rachel Prado, Fellow Procedure Details Informed consent [...] scrubbed for the entire procedure. Natalia Kuhn VENETIAN BLIND WORKER ENDOSCOPY PRO CEDURE ORDERABLES from Last 3 Months or Most Recently Relevant to Health Maintenance Care Teams Dog Catcher Relationship Specialty Start Date End Date Jeremiah Arvizu MD [address] [facility] [place], [place] [phone] PCP - General 01/26/22
--- OUTSIDE RECORDS SUMMARY | 2024-08-09 16:47 | XMS_ITS | Encounter Summary ---
Author Organization [facility] Address [address] [place] [address] Care Team Providers Care Medical Researcher Name Role Phone Jeremiah Arvizu MD Primary Care Provider [phone] Encounter Details Date Type Department Care Team (Late Contact Info) Description 02/24/2022 Orders Only [facility] [address] [place] [phone] Karolyn Werner MA Essential hypertension Social History Tobacco Use Types Packs/Day Years Used Date Smoking Tobacco: Former Cigarettes Q uit: 2008 Passive Smoke Exposure: Never Smokeless Tobacco: Never Alcohol Use Standard Drinks/Week Comments Not Currently 0 (1 standard drink = 0.6 oz pur e alcohol) Sex and Gender Information Value Date Recorded [...] suspected to have Coronavirus/COVID-19? No / Unsure 02/24/2022 2:10 PM EST documented as of this encounter Plan of Treatment Upcoming Encounters Date Type Department Care Team (Late Contact Info) Description 08/25/2024 12:00 PM EDT Appointment [facility] [address] [place] [address] [place] [phone] documented as of this encounter Visit Diagnoses Diagnosis Essential hypertension Unspecified essential hypertension documented in this encounter Care Teams Medical Researcher Relationship Specialty Start Date End Date Jeremiah Arvizu MD [address] [facility] [address] [address] PCP - General 01/26/22 documented as of this encounter
--- OUTSIDE RECORDS SUMMARY | 2024-08-09 16:47 | XMS_ITS | Patient Health Record ---
Author Organization [facility] in [place] Address [address] [place] [address] Care Team Providers Care Building Services Engineer Name Role Phone Dontrell Arvizu Primary Care Provider [phone] Provider, JONATHAN Unavailable [phone] Jose Angel Mensah Unavailable [phone] Bhavana Long Unavailable [phone] Beatriz Campos Unavailable [phone] Amanda Kellogg Unavailable [phone] Allergies Allergen (clinical drug ingredient) Drug/Non Drug Allergy documented on EMR Reaction Allergy Type Onset Date Status Plastic Tape (uncoded) hives Allergy 023 Active fluticasone Flonase Unknown Drug Allergy Activ e Penicillin Unknown Drug Allergy Active Results Component Value Reference Range Notes XR EYE FOREIGN BODY Reviewed date:01/23/2024 05:32:21 PM Interpretation: Performing Lab: Notes/Report: XR EYE FOREIGN BODY 11/23/2023 12:54 PM STAT PRE MRI ORBITS- CBC AUTO DIFF Reviewed date:01/23/2024 05:32:21 PM Interpretation: Performing Lab: Notes/Report: [facility] , White Blood Count 8.2 4.0-11.0 10 3/uL Red Blood Count 4.17 4.20-5.40 10 6/uL Hemoglobin 12.2 12.0-16.0 g/dL Hematocrit 39.5 36.0-48.0 % Mean Corpuscular Volume 94.7 81.0-99.0 fL Mean Corpuscular Hemoglobin 29.3 26.7-34.0 pg Mean Corpuscular HGB Conc 30.9 29.9-35.2 g/dL Red Cell Distribution Width 14.1 11.0-15.0 % Platelet Count 206 150-450 10 3/uL Mean Platelet Volume 9.3 9.5-13.5 fL Neutrophils Percent Auto 69.7 43.0-75.0 % Lymphocytes Percent Auto 17.8 20.5-60.0 % Monocytes Percent Auto 10.5 1.7-12.0 % Eosinophils Percent Auto 1.1 0.9-7.0 % Basophils Percent Auto 0.5 0.2-2.0 % Immature Granulocytes Pct Auto 0.4 0.0-0.5 % Neutrophils Absolute Auto 5.7 1.4-6.5 10 3/uL Lymphocytes Absolute Auto 1.5 1.2-3.8 10 3/uL Monocytes Absolute Auto 0.9 0.3-0.8 10 3/uL Eosinophils Absolute Auto 0.1 0.0-0.7 10 3/uL Basophils Absolute Auto 0.0 0.0-0.1 10 3/uL Immature Granulocytes Abs Auto 0.03 0.00-0.03 10 3/uL Performing Lab: see note ML - [facility] LB POTASSIUM Reviewed date:01/24/2024 01:26:44 PM Interpretation: Performing Lab: Notes/Report: [facility] , Potassium 5.5 3.5-5.1 mmol/L Performing Lab: see note - [facility] LB PROF 14(COMP METB) Reviewed date:01/23/2024 06:00:42 PM Interpretation: Performing Lab: Notes/Report: [facility] , Sodium 143 136-145 mmol/L Potassium 5.3 3.5-5.1 mmol/L Chloride 111 98-107 mmol/L Carbon Dioxide 23.5 21.0-32.0 mmol/L Anion Gap 13.8 Glucose 87 74-106 mg/dL Blood Urea Nitrogen 30.0 7.0-18.0 mg/dL Creatinine 1.80 0.55-1.02 mg/dL Estimated GFR ( Radha 34 >=60 mL/min/1.73m 2 Estimated GFR (Non- Irene 28 >=60 mL/min/1.73m 2 BUN Creatinine Ratio 16.7 Calcium 9.1 8.5-10.1 mg/dL Bilirubin Total 0.4 0.2-1.0 mg/dL Aspartate Amino Transferase 11 15-37 U/L Alanine Aminotransferase 9 14-59 U/L Alkaline Phosphatase 77 46-116 U/L Total Protein 6.6 6.4-8.2 g/dL Albumin Level 3.0 3.4-5.0 g/dL Globulin 3.6 Albumin Globulin Ratio 0.8 Performing Lab: see note ML - [facility] Prothrombin Time INR Reviewed date:01/23/2024 05:40:30 PM Interpretation: Performing Lab: Notes/Report: [facility] , Prothrombin Time 10.6 9.0-11.6 sec INR 1.00 DESIRED INR: 2.0-3.0 CONDITIONS NOT LISTED BELOW 2.5-3.5 FOR PROSTHETIC HEART VALVE REPLACEMENT 2.5-3.5 RECURRENT THROMBOSIS Performing Lab: see note - [facility] Troponin I High Sensitivity Reviewed date:01/23/2024 06:00:42 PM Interpretation: Performing Lab: Notes/Report: [facility] , Troponin I High Sensitivity 11.0 4.0-51.3 pg/mL CUT-OFF POINTS HAVE BEEN ESTABLISHED BASED ON THE FOURTH UNIVERSAL DEFINITION OF MYOCARDIAL INFARCTION. THE UPPER REFERENCE LIMIT (URL) OF TROPONIN, DEFINED THE 99TH PERCENTILE OF cTnI DISTRIBUTION IN A REFERENCE POPULATION, HAS BEEN CONFIRMED THE DECISION THRESHOLD FOR [place] DIAGNOSIS. 99TH PERCENTILE = 51.4 PG/ML NOTE: HIGH-SENSITIVITY TROPONIN ASSAY IS NOT INTENDED TO BE USED IN ISOLATION BUT SHOULD BE INTERPRETED IN CONJUNCTION WITH OTHER DIAGNOSTIC AND CLINICAL INFORMATION. Performing Lab: see note - 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 Signed By: 01/24/24514 DD/ 11 TD/TT: [employer]: XR chest 1V Reviewed date:01/23/2024 06:00:42 PM Interpretation: Performing Lab: Notes/Report: Source Facility: [place] [address] XRay Report Signed Patient: JUSTIN SADLER MR#: [id number] : 1950 Acct:[id number] Age/Sex: 73 / F ADM Date: 01/23/24 Loc: ER Attending Dr: Ordering Physician: Holli Ocampo Date of Service: 01/23/24 Procedure(s): XR chest 1V Accession Number(s): [id number] cc: Debbie Arvizu M.D.; Holli Ocampo [place] [address] Patient Name: JUSTIN SADLER MRN: [id number] date: 1950 Sex: F Assigned Patient Location: ER Current Patient Location: ER Accession/Order Number: [id number] Exam Date: 01/23/2024 17:28 Report Date: 01/23/2024 17:52 At the request of: HOLLI OCAMPO Procedure: XR chest 1V EXAM: XR chest 1V HISTORY: chest pain COMPARISON: 01/19/2023 TECHNIQUE: Chest X-ray AP, 1 view FINDINGS: Support devices: Left-sided pacemaker is in place. Lungs/pleura: No consolidation, effusion, or pneumothorax. Heart and mediastinum: Normal contours. Bones: No acute abnormality identified. XR/XR chest 1V Impression: No radiographic evidence of acute cardiopulmonary process. Electronically authenticated by: YSABEL KEITH Date: 01/23/2024 17:52 Dictated By: Ysabel Keith M.D. Signed By: 01/23/241754 DD/ 51 TD/TT: [employer]: [place] [address] XRay Report Signed Patient: AMRY SADLER SE MR#: [id number] : 1950 Acct:[id number] Age/Sex: 73 / F ADM Date: 01/23/24 Loc: ER Attending Dr: Ordering Physician: Holli Ocampo Date of Service: 01/23/24 Procedure(s): XR chest 1V Accession Number(s): [id number] cc: Debbie Arvizu M.D. ; Holli Ocampo [place] [id number] Patient Name: JUSTIN SADLER MRN: [facility]:[id number] date: 1950 Sex: F Assigned Patient Location: ER Current Patient Loca tion: ER Accession/Order Numb er: [id number] Exam Date: 17:28 Report Date: 01/23/2024 17:52 At the request of: HOLLI OCAMPO Procedure: XR chest 1V EXAM: XR chest 1V HISTORY: chest pain COMPARISON: 01/19/2023 TECHNIQUE: Chest X-r ay AP, 1 view FINDINGS: Support devices: Left-sided pacemaker is in place. Lungs/pleura: No consolidation, effusion, or pneumothorax. Heart and mediastinu m: Normal contours. Bones: No acute abnormality identified. X R/XR chest 1V Impression: No radiographic evid ence of acute cardiopulmonary process. Electronically authenticated by: YSABEL KEITH Date: 01/23/2024 17:52 Dictated By: Ysabel Keith M.D. Signed By: 01/23/241754 DD/ 51 TD/TT: [employer]: Troponin I High Sensitivity Reviewed date:01/24/2024 01:26:44 PM Interpretation: Performing Lab: Notes/Report: [facility] , Troponin I High Sensitivity 11.7 4.0-51.3 pg/mL CUT-OFF POINTS HAVE BEEN ESTABLISHED BASED ON THE FOURTH UNIVERSAL DEFINITION OF MYOCARDIAL INFARCTION. THE UPPER REFERENCE LIMIT (URL) OF TROPONIN, DEFINED THE 99TH PERCENTILE OF cTnI DISTRIBUTION IN A REFERENCE POPULATION, HAS BEEN CONFIRMED THE DECISION THRESHOLD FOR [place] DIAGNOSIS. 99TH PERCENTILE = 51.4 PG/ML NOTE: HIGH-SENSITIVITY TROPONIN ASSAY IS NOT INTENDED TO BE USED IN ISOLATION BUT SHOULD BE INTERPRETED IN CONJUNCTION WITH OTHER DIAGNOSTIC AND CLINICAL INFORMATION. Performing Lab: see note ML - [facility] LB CBC AUTO DIFF Reviewed date:06/20/2024 03:31:27 PM Interpretation: Performing Lab: Notes/Report: [facility] , White Blood Count 7.5 4.0-11.0 10 3/uL Red Blood Count 3.86 4.20-5.40 10 6/uL Hemoglobin 11.1 12.0-16.0 g/dL Hematocrit 36.1 36.0-48.0 % Mean Corpuscular Volume 93.5 81.0-99.0 fL Mean Corpuscular Hemoglobin 28.8 26.7-34.0 pg Mean Corpuscular HGB Conc 30.7 29.9-35.2 g/dL Red Cell Distribution Width 13.9 11.0-15.0 % Platelet Count 230 150-450 10 3/uL Mean Platelet Volume 9.5 9.5-13.5 fL Neutrophils Percent Auto 73.7 43.0-75.0 % Lymphocytes Percent Auto 15.4 20.5-60.0 % Monocytes Percent Auto 9.2 1.7-12.0 % Eosinophils Percent Auto 0.9 0.9-7.0 % Basophils Percent Auto 0.4 0.2-2.0 % Immature Granulocytes Pct Auto 0.4 0.0-0.5 % Neutrophils Absolute Auto 5.5 1.4-6.5 10 3/uL Lymphocytes Absolute Auto 1.2 1.2-3.8 10 3/uL Monocytes Absolute Auto 0.7 0.3-0.8 10 3/uL Eosinophils Absolute Auto 0.1 0.0-0.7 10 3/uL Basophils Absolute Auto 0.0 0.0-0.1 10 3/uL Immature Granulocytes Abs Auto 0.03 0.00-0.03 10 3/uL Performing Lab: see note ML - [facility] LB FREE T3 Reviewed date:06/20/2024 03:31:27 PM Interpretation: Performing Lab: Notes/Report: [facility] , Free T3 2.57 2.18-3.98 pg/mL Performing Lab: see note ML - [facility] LB GLYCOHEMOGLOBIN A1C Reviewed date:06/20/2024 03:31:27 PM Interpretation: Performing Lab: Notes/Report: [facility] , Glycohemoglobin A1C 5.2 4.5-6.2 % ADA RECOMMENDED LIMIT 4.0 - 6.0 ADA THERAPEUTIC TARGET < 7.0 ACTION SUGGESTED > 7.0 Estimated Average Glucose 103 Performing Lab: see note ML - [facility] LB IRON AND TIBC Reviewed date:06/20/2024 03:31:27 PM Interpretation: Performing Lab: Notes/Report: [facility] , Iron 51.0 50.0-170.0 ug/dL Total Iron Binding Capacity 230.0 250.0-450.0 ug/dL Percent Iron Saturation 22.2 Performing Lab: see note ML - [facility] LB LIPID PROFILE Reviewed date:06/20/2024 03:31:27 PM Interpretation: Performing Lab: Notes/Report: [facility] , Triglycerides 55 <=150 mg/dL Cholesterol 146 <=200 mg/dL HDL Cholesterol 53 40-60 mg/dL > or =60 mg/dl - LOW CARDIOVASCULAR RISK <40 mg/dl - HIGH CARDIOVASCULAR RISK LDL Cholesterol Calculated 82.0 <100 mg/dl OPTIMAL 100-129 mg/dl NEAR OR ABOVE OPTIMAL 130-159 mg/dl BORDERLINE HIGH 160-189 mg/dl HIGH >190 mg/dl VERY HIGH VLDL CHOLESTEROL 11.0 Chol HDL Ratio 2.8 3.3 - 4.4 LOW RISK 4.4 - 7.1 AVERAGE RISK 7.1 - 11.0 MODERATE RISK >11.0 HIGH RISK Performing Lab: see note ML - [facility] LB MAGNESIUM Reviewed date:06/20/2024 03:31:27 PM Interpretation: Performing Lab: Notes/Report: [facility] , Magnesium 1.6 1.8-2.4 mg/dL Performing Lab: see note ML - [facility] LB PHOSPHORUS Reviewed date:06/20/2024 03:31:27 PM Interpretation: Performing Lab: Notes/Report: [facility] , Phosphorus 3.7 2.6-4.7 mg/dL Performing Lab: see note ML - [facility] LB PROF 14(COMP METB) Reviewed date:06/20/2024 03:31:27 PM Interpretation: Performing Lab: Notes/Report: [facility] , Sodium 142 136-145 mmol/L Potassium 4.8 3.5-5.1 mmol/L Chloride 108 98-107 mmol/L Carbon Dioxide 26.2 21.0-32.0 mmol/L Anion Gap 12.6 Glucose 97 74-106 mg/dL Blood Urea Nitrogen 38.0 7.0-18.0 mg/dL Creatinine 2.10 0.55-1.02 mg/dL Estimated GFR ( Radha 28 >=60 mL/min/1.73m 2 Estimated GFR (Non- Irene 23 >=60 mL/min/1.73m 2 BUN Creatinine Ratio 18.1 Calcium 9.0 8.5-10.1 mg/dL Bilirubin Total 0.5 0.2-1.0 mg/dL Aspartate Amino Transferase 15 15-37 U/L Alanine Aminotransferase 10 14-59 U/L Alkaline Phosphatase 82 46-116 U/L Total Protein 6.9 6.4-8.2 g/dL Albumin Level 3.0 3.4-5.0 g/dL Globulin 3.9 Albumin Globulin Ratio 0.8 Performing Lab: see note ML - [facility] LB T4 Reviewed date:06/20/2024 03:31:27 PM Interpretation: Performing Lab: Notes/Report: [facility] , T4 Thyroxine 8.10 4.80-13.90 ug/dL Performing Lab: see note ML - [facility] LB TSH Reviewed date:06/20/2024 03:31:27 PM Interpretation: Performing Lab: Notes/Report: [facility] , Thyroid Stimulating Hormone 0.008 0.358-3.740 uIU/mL Performing Lab: see note - [facility] LB UA RANDOM W or MICROSCOPIC Reviewed date:06/20/2024 03:31:27 PM Interpretation: Performing Lab: Notes/Report: [facility] , Color Urine YELLOW YELLOW Clarity Urine CLEAR CLEAR Specific [place] Urine 1.020 1.005-1.025 pH Urine 6.0 5.0-9.0 Protein Urine NEGATIVE NEG/TRACE mg/dL Glucose Urine UA NEGATIVE NEGATIVE mg/dL Bilirubin Urine NEGATIVE NEGATIVE Ketones Urine NEGATIVE NEGATIVE mg/dL Blood Urine NEGATIVE NEGATIVE Nitrite Urine NEGATIVE NEGATIVE Urobilinogen Urine 0.2 0.2-1.0 EU/dL Leukocyte Esterase Urine TRACE NEGATIVE WBC Urine 2-5 NONE SEEN #/HPF RBC Urine 0-2 0-2 #/HPF Bacteria Urine SMALL NONE SEEN #/HPF Mucus Urine TRACE NONE SEEN Squamous Epithelial Cell Urine MODERATE NONE/RARE #/LPF Crystals Seen? None Seen None Seen #/HPF Cast Seen? NONE SEEN NONE SEEN #/LPF Urine Culture Indicated NO Performing Lab: see note - [facility] LB URIC ACID SERUM Reviewed date:06/20/2024 03:31:27 PM Interpretation: Performing Lab: Notes/Report: [facility] , Uric Acid 8.0 2.6-6.0 mg/dL Performing Lab: see note [facility] LB VITAMIN D 25 [place] Reviewed date:06/20/2024 03:31:27 PM Interpretation: Performing Lab: Notes/Report: [facility] , Vitamin D 37.9 <20 ng/mL Vit D deficient 20-<30 ng/mL Vit D insufficient 30-100 ng/mL Vit D sufficient >100 ng/mL Potential Toxicity Performing Lab: see note - [facility] LB PTH, Intact Reviewed date:06/21/2024 12:49:25 PM Interpretation: Performing Lab: Notes/Report: [facility] , PTH, Intact 43 15-65 pg/mL Performed at: [address] [id number] [employer] Machine Set Up Operator: Jozef Medina PhD, Phone: [phone] Performing Lab: see note [facility] Immunofixation, Urine Reviewed date:06/22/2024 08:14:52 PM Interpretation: Performing Lab: Notes/Report: [facility] , Immunofixation, Urine Comment . No monoclonality detected. Performed at: [address] [id number] [employer] Set Up Operator: Jozef Medina PhD, Phone: [phone] Performing Lab: see note [facility] LB JOSE, PE and FLC, Serum Reviewed date:06/22/2024 08:14:52 PM Interpretation: Performing Lab: Notes/Report: [facility] , Immunoglobulin G, Qn, Serum 4302 266-0346 mg/dL Immunoglobulin A, Qn, Serum 206 64-422 mg/dL Immunoglobulin M, Qn, Serum 98 26-217 mg/dL Protein, Total 6.4 6.0-8.5 g/dL Albumin 2.9 2.9-4.4 g/dL Pwtkg-2-Xgahaymf 0.3 0.0-0.4 g/dL Aofey-5-Lyokbwtu 1.0 0.4-1.0 g/dL Beta Globulin 1.1 0.7-1.3 g/dL Gamma Globulin 1.0 0.4-1.8 g/dL M-Benjy Comment: Not Observed g/dL SPE shows an asymmetrical gamma. Globulin, Total 3.5 2.2-3.9 g/dL A/G Ratio 0.9 0.7-1.7 Immunofixation Result, Serum Comment: . Presence of monoclonal protein is unclear at this time. Suggest repeat in 3 to 6 months if clinically indicated. Please note: Comment . Protein electrophoresis scan will follow via computer, mail, or tenter delivery. Free Oasis Lt Chains,S 51.5 3.3-19.4 mg/L Free Lambda Lt Chains,S 30.7 5.7-26.3 mg/L Oasis/Lambda Ratio,S 1.68 0.26-1.65 Performed at: [address] [id number] [employer] Machine Set Up Operator: Jozef Medina PhD, Phone: [phone] Performing Lab: see note [facility] LB Occult Blood* Reviewed date:06/22/2024 08:14:52 PM Interpretation: Performing Lab: Notes/Report: [facility] , Occult Blood Positive Performing Lab: see note - [facility] PTT Reviewed date:06/26/2024 08:31:41 PM Interpretation: Performing Lab: Notes/Report: [facility] , Partial Thromboplastin Time 29.3 22.3-36.2 sec Performing Lab: see note ML - [facility] Prothrombin Time INR Reviewed date:06/26/2024 08:31:41 PM Interpretation: Performing Lab: Notes/Report: [facility] , Prothrombin Time 11.4 9.0-11.6 sec INR 1.08 DESIRED INR: 2.0-3.0 CONDITIONS NOT LISTED BELOW 2.5-3.5 FOR PROSTHETIC HEART VALVE REPLACEMENT 2.5-3.5 RECURRENT THROMBOSIS Performing Lab: see note - [facility] CBC AUTO DIFF Reviewed date:07/30/2024 09:56:53 PM Interpretation: Performing Lab: Notes/Report: [facility] , White Blood Count 6.5 4.0-11.0 10 3/uL Red Blood Count 4.10 4.20-5.40 10 6/uL Hemoglobin 11.9 12.0-16.0 g/dL Hematocrit 38.8 36.0-48.0 % Mean Corpuscular Volume 94.6 81.0-99.0 fL Mean Corpuscular Hemoglobin 29.0 26.7-34.0 pg Mean Corpuscular HGB Conc 30.7 29.9-35.2 g/dL Red Cell Distribution Width 13.2 11.0-15.0 % Platelet Count 215 150-450 10 3/uL Mean Platelet Volume 9.9 9.5-13.5 fL Neutrophils Percent Auto 63.7 43.0-75.0 % Lymphocytes Percent Auto 21.6 20.5-60.0 % Monocytes Percent Auto 11.9 1.7-12.0 % Eosinophils Percent Auto 2.0 0.9-7.0 % Basophils Percent Auto 0.5 0.2-2.0 % Immature Granulocytes Pct Auto 0.3 0.0-0.5 % Neutrophils Absolute Auto 4.1 1.4-6.5 10 3/uL Lymphocytes Absolute Auto 1.4 1.2-3.8 10 3/uL Monocytes Absolute Auto 0.8 0.3-0.8 10 3/uL Eosinophils Absolute Auto 0.1 0.0-0.7 10 3/uL Basophils Absolute Auto 0.0 0.0-0.1 10 3/uL Immature Granulocytes Abs Auto 0.02 0.00-0.03 10 3/uL Performing Lab: see note ML - [facility] LB CRP Reviewed date:07/30/2024 09:56:53 PM Interpretation: Performing Lab: Notes/Report: [facility] , C Reactive Protein <0.50 <=0.50 mg/dL Performing Lab: see note ML - [facility] LB LDH Reviewed date:07/30/2024 09:56:53 PM Interpretation: Performing Lab: Notes/Report: [facility] , Lactate Dehydrogenase 147 81-234 U/L Performing Lab: see note ML - [facility] LB PROF 14(COMP METB) Reviewed date:07/30/2024 09:56:53 PM Interpretation: Performing Lab: Notes/Report: [facility] , Sodium 139 136-145 mmol/L Potassium 5.1 3.5-5.1 mmol/L Chloride 106 98-107 mmol/L Carbon Dioxide 28.9 21.0-32.0 mmol/L Anion Gap 9.2 Glucose 88 74-106 mg/dL Blood Urea Nitrogen 41.0 7.0-18.0 mg/dL Creatinine 2.45 0.55-1.02 mg/dL Estimated GFR ( Radha 23 >=60 mL/min/1.73m 2 Estimated GFR (Non- Irene 19 >=60 mL/min/1.73m 2 BUN Creatinine Ratio 16.7 Calcium 9.3 8.5-10.1 mg/dL Bilirubin Total 0.4 0.2-1.0 mg/dL Aspartate Amino Transferase 9 15-37 U/L Alanine Aminotransferase 10 14-59 U/L Alkaline Phosphatase 75 46-116 U/L Total Protein 6.8 6.4-8.2 g/dL Albumin Level 3.1 3.4-5.0 g/dL Globulin 3.7 Albumin Globulin Ratio 0.8 Performing Lab: see note - [facility] LB Erythrocyte Sedimentation Ra te Reviewed date:07/30/2024 09:56:53 PM Interpretation: Performing Lab: Notes/Report: [facility] , Erythrocyte Sedimentation Rate 96 <=30 mm/hr Performing Lab: see note [facility] LB JOSE, PE and FLC, Serum Reviewed date:07/30/2024 09:56:53 PM Interpretation: Performing Lab: Notes/Report: [facility] , Immunoglobulin G, Qn, Serum 8181 394-4113 mg/dL Immunoglobulin A, Qn, Serum 179 64-422 mg/dL Immunoglobulin M, Qn, Serum 87 26-217 mg/dL Protein, Total 6.2 6.0-8.5 g/dL Albumin 3.2 2.9-4.4 g/dL Yfter-7-Rumifvqv 0.3 0.0-0.4 g/dL Dthfh-9-Lggxqgql 0.9 0.4-1.0 g/dL Beta Globulin 1.0 0.7-1.3 g/dL Gamma Globulin 0.9 0.4-1.8 g/dL M-Benjy Comment: Not Observed g/dL SPE shows an asymmetrical gamma. Globulin, Total 3.0 2.2-3.9 g/dL A/G Ratio 1.1 0.7-1.7 Immunofixation Result, Serum Comment: . Presence of monoclonal protein is unclear at this time. Suggest repeat in 3 to 6 months if clinically indicated. Please note: Comment . Protein electrophoresis scan will follow via computer, mail, or tenter delivery. Free Oasis Lt Chains,S 42.0 3.3-19.4 mg/L Free Lambda Lt Chains,S 26.6 5.7-26.3 mg/L Oasis/Lambda Ratio,S 1.58 0.26-1.65 Performed at: - [facility] [id number] [employer] Machine Set Up Operator: Jozef Medina PhD, Phone: [phone] Performing Lab: see note - [facility] LB Reticulocyte Pct Auto Reviewed date:07/30/2024 09:56:53 PM Interpretation: Performing Lab: Notes/Report: [facility] , Reticulocyte Pct Auto 1.22 0.60-3.10 % Performing Lab: see note - [facility] LB CBC AUTO DIFF Reviewed date:07/30/2024 09:56:53 PM Interpretation: Performing Lab: Notes/Report: [facility] , White Blood Count 7.2 4.0-11.0 10 3/uL Red Blood Count 3.89 4.20-5.40 10 6/uL Hemoglobin 11.4 12.0-16.0 g/dL Hematocrit 36.6 36.0-48.0 % Mean Corpuscular Volume 94.1 81.0-99.0 fL Mean Corpuscular Hemoglobin 29.3 26.7-34.0 pg Mean Corpuscular HGB Conc 31.1 29.9-35.2 g/dL Red Cell Distribution Width 13.4 11.0-15.0 % Platelet Count 202 150-450 10 3/uL Mean Platelet Volume 9.6 9.5-13.5 fL Neutrophils Percent Auto 66.4 43.0-75.0 % Lymphocytes Percent Auto 18.8 20.5-60.0 % Monocytes Percent Auto 12.4 1.7-12.0 % Eosinophils Percent Auto 1.7 0.9-7.0 % Basophils Percent Auto 0.4 0.2-2.0 % Immature Granulocytes Pct Auto 0.3 0.0-0.5 % Neutrophils Absolute Auto 4.8 1.4-6.5 10 3/uL Lymphocytes Absolute Auto 1.4 1.2-3.8 10 3/uL Monocytes Absolute Auto 0.9 0.3-0.8 10 3/uL Eosinophils Absolute Auto 0.1 0.0-0.7 10 3/uL Basophils Absolute Auto 0.0 0.0-0.1 10 3/uL Immature Granulocytes Abs Auto 0.02 0.00-0.03 10 3/uL Performing Lab: see note ML - [facility] PROF CHEM 8 (BAS METB) Reviewed date:07/30/2024 09:56:53 PM Interpretation: Performing Lab: Notes/Report: [facility] , Sodium 141 136-145 mmol/L Potassium 4.8 3.5-5.1 mmol/L Chloride 108 98-107 mmol/L Carbon Dioxide 28.5 21.0-32.0 mmol/L Anion Gap 9.3 Glucose 110 74-106 mg/dL Blood Urea Nitrogen 53.0 7.0-18.0 mg/dL Creatinine 2.93 0.55-1.02 mg/dL Estimated GFR ( Radha 19 >=60 mL/min/1.73m 2 Estimated GFR (Non- Irene 16 >=60 mL/min/1.73m 2 BUN Creatinine Ratio 18.1 Calcium 9.4 8.5-10.1 mg/dL Performing Lab: see note ML - [facility] Troponin I High Sensitivity Reviewed date:07/30/2024 09:56:53 PM Interpretation: Performing Lab: Notes/Report: [facility] , Troponin I High Sensitivity 12.0 4.0-51.3 pg/mL CUT-OFF POINTS HAVE BEEN ESTABLISHED BASED ON THE FOURTH UNIVERSAL DEFINITION OF MYOCARDIAL INFARCTION. THE UPPER REFERENCE LIMIT (URL) OF TROPONIN, DEFINED THE 99TH PERCENTILE OF cTnI DISTRIBUTION IN A REFERENCE POPULATION, HAS BEEN CONFIRMED THE DECISION THRESHOLD FOR [place] DIAGNOSIS. 99TH PERCENTILE = 51.4 PG/ML NOTE: HIGH-SENSITIVITY TROPONIN ASSAY IS NOT INTENDED TO BE USED IN ISOLATION BUT SHOULD BE INTERPRETED IN CONJUNCTION WITH OTHER DIAGNOSTIC AND CLINICAL INFORMATION. Performing Lab: see note ML - [facility] ECG 12 lead Reviewed date:07/30/2024 09:56:53 PM Interpretation: Performing Lab: Notes/Report: Source Facility: [place] [address] [place] [address] Electrocardiograph Report Signed Patient: JUSTIN SADLER MR#: [id number] : 1950 Acct:[id number] Age/Sex: 74 / F ADM Date: 07/28/24 Loc: MS 232-[address]: Debbie Arvizu M.D. 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 Measurements Intervals [place] Rate: 80 P: 92 OK: 180 QRS: 37 QRSD: 88 T: 27 QT: 402 QTc: 438 Interpretive Statements [id number] Electronic atrial pacemaker 9120 atypical ECG Compared to ECG 01/23/2024 17:12:55 No significant changes Electronically Signed On 07-29-2024 7:49:53 EDT by LOVE RUBIO M.D. Dictated By: LOVE RUBIO Signed By: 07/29/24 0750 DD/ 2307 TD/TT: [employer]: [place] [address] Electrocardiograph Report Signed Patient: MARY SADLER SE MR#: [id number] : 1950 Acct:[id number] Age/Sex: 74 / F ADM Date: 07/28/24 Loc: MS 232-[address]: Yong Arvizu M.D. 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 Measurements Intervals [place] Rate: 80 P: 92 OK: 180 QRS: 37 QRSD: 88 T: 27 QT: 402 QTc: 438 Interpretive Statements 53897 Electronic atr ial pacemaker 9120 atypical ECG Compared to ECG 01/23/2024 17:12:55 No significant changes Electronically Virgie d On 07-29-2024 7:49:53 EDT by LOVE RUBIO M.D. Dictated By: LOVE RUBIO Signed By: 07/29/24 0750 DD/ 3884 TD/TT: [employer]: CBC AUTO DIFF Reviewed date:07/30/2024 09:56:53 PM Interpretation: Performing Lab: Notes/Report: [facility] , White Blood Count 6.2 4.0-11.0 10 3/uL Red Blood Count 3.81 4.20-5.40 10 6/uL Hemoglobin 10.9 12.0-16.0 g/dL Hematocrit 35.3 36.0-48.0 % Mean Corpuscular Volume 92.7 81.0-99.0 fL Mean Corpuscular Hemoglobin 28.6 26.7-34.0 pg Mean Corpuscular HGB Conc 30.9 29.9-35.2 g/dL Red Cell Distribution Width 13.3 11.0-15.0 % Platelet Count 196 150-450 10 3/uL Mean Platelet Volume 9.7 9.5-13.5 fL Neutrophils Percent Auto 60.8 43.0-75.0 % Lymphocytes Percent Auto 23.5 20.5-60.0 % Monocytes Percent Auto 13.3 1.7-12.0 % Eosinophils Percent Auto 1.5 0.9-7.0 % Basophils Percent Auto 0.6 0.2-2.0 % Immature Granulocytes Pct Auto 0.3 0.0-0.5 % Neutrophils Absolute Auto 3.7 1.4-6.5 10 3/uL Lymphocytes Absolute Auto 1.5 1.2-3.8 10 3/uL Monocytes Absolute Auto 0.8 0.3-0.8 10 3/uL Eosinophils Absolute Auto 0.1 0.0-0.7 10 3/uL Basophils Absolute Auto 0.0 0.0-0.1 10 3/uL Immature Granulocytes Abs Auto 0.02 0.00-0.03 10 3/uL Performing Lab: see note - [facility] LB MAGNESIUM Reviewed date:07/30/2024 09:56:53 PM Interpretation: Performing Lab: Notes/Report: [facility] , Magnesium 1.9 1.8-2.4 mg/dL Performing Lab: see note - [facility] LB PROF 14(COMP METB) Reviewed date:07/30/2024 09:56:53 PM Interpretation: Performing Lab: Notes/Report: [facility] , Sodium 144 136-145 mmol/L Potassium 4.9 3.5-5.1 mmol/L Chloride 108 98-107 mmol/L Carbon Dioxide 26.9 21.0-32.0 mmol/L Anion Gap 14.0 Glucose 102 74-106 mg/dL Blood Urea Nitrogen 55.0 7.0-18.0 mg/dL Creatinine 2.70 0.55-1.02 mg/dL Estimated GFR ( Radha 21 >=60 mL/min/1.73m 2 Estimated GFR (Non- Irene 17 >=60 mL/min/1.73m 2 BUN Creatinine Ratio 20.4 Calcium 9.0 8.5-10.1 mg/dL Bilirubin Total 0.5 0.2-1.0 mg/dL Aspartate Amino Transferase 10 15-37 U/L Alanine Aminotransferase 12 14-59 U/L Alkaline Phosphatase 68 46-116 U/L Total Protein 6.3 6.4-8.2 g/dL Albumin Level 2.9 3.4-5.0 g/dL Globulin 3.4 Albumin Globulin Ratio 0.9 Performing Lab: see note ML - [facility] LB URINE T PROTEIN CREAT RATIO Reviewed date:06/20/2024 03:31:27 PM Interpretation: Performing Lab: Notes/Report: [facility] , Total Protein Urine Random 30.4 <=11.9 mg/dL Creatinine Urine Random 127.97 20.00-30 0.00 mg/dL Protein Creatinine Ratio Urine 0.24 Performing Lab: see note - [facility] LB FERRITIN Reviewed date:06/20/2024 03:31:27 PM Interpretation: Performing Lab: Notes/Report: [facility] , Ferritin 147.0 8.0-252.0 ng/mL Performing Lab: see note ML - [facility] LB XR sinus min 3V Reviewed date:05/09/2024 04:10:11 PM Interpretation: Performing Lab: Notes/Report: Source Facility: [facility] [place] [address] [place] [address] XRay Report Signed Patient: JUSTIN SADLRE MR#: [id number] : 1950 Acct:[id number] Age/Sex: 74 / F ADM Date: 05/09/24 Loc: RAD Attending Dr: Lakshmi Mathews M.D. Ordering Physician: Lakshmi Mathews M.D. Date of Service: 05/09/24 Procedure(s): XR sinus min 3V Accession Number(s): [id number] cc: Dbebie Arvizu M.D.; Lakshmi Mathews M.D. [place] [address] Patient Name: JUSTIN SADLER MRN: [id number] date: 1950 Sex: F Assigned Patient Location: [facility] Current Patient Location: [facility] Accession/Order Number: [id number] Exam Date: 05/09/2024 12:47 Report Date: 05/09/2024 12:54 At the request of: LAKSHMI MATHEWS MD Procedure: XR sinus min 3V [...] Kelly Lao M.D.05/09/2024 12:54 PM Dictation Location: [place] [address] Electronically authenticated by: [id number] Y Date: 05/09/2024 12:54 Dictated By: Kelly Lao M.D. Signed By: 05/09/24 1257 DD/ 1254 TD/TT: [employer]: [address] [address] XRay Report Signed Patient: MARY SADLER SE MR#: [id number] : 1950 Acct:[id number] Age/Sex: 74 / F ADM Date: 05/09/24 Loc: RAD Attending Dr: Lakshmi Mathews M.D. Ordering Physician: Lakshmi Mathews M.D. Date of Service: 05/09/24 Procedure(s): XR sin us min 3V Accession Number(s): [id number] cc: Debbie Arvizu M.D. ; Lakshmi Mathews M.D. [place] [address] Patient Name: JUSTIN SADLER MRN: [id number] date: 1950 Sex: F Assigned Patient Location: RAD Current Patient Loca tion: RAD Accession/Order Numb er: [id number] Exam Date: 05/09/2024 12:47 Report Date: 05/09/2024 12:54 At the request of: LAKSHMI MATHEWS MD Procedure: XR sinus min 3V PARANASAL SINUSES - 3 views COMPARISON: CT head 02/16/2020 CLINICAL DATA: Headaches. Butler, Alondra's and lateral views were obtained. The paranasal sinuses, as visualized are rock lly pneumatized. There is no significant mucosal thickening or eviden ce of air-fluid levels. No obvious mastoid opacification is noted. No patholo gic intracranial cages are seen. The bony structures are osteopenic. X R/XR sinus min 3V IMPRESSION: NO PLAIN FILM EVIDEN CE OF SINUSITIS Impression dictated by: Kelly Lao M.D.05/09/2024 12:54 PM Dictation Location: [place] [address] Electronically authenticated by: [id number] Y Date: 05/09/2024 12:54 Dictated By: Kelly Lao M.D. Signed By: 05/09/24 1257 DD/ 1254 TD/TT: [employer]: PTH, Intact Reviewed date:02/01/2024 11:07:43 AM Interpretation: Performing Lab: Notes/Report: [facility] , PTH, Intact 46 15-65 pg/mL Performed at: [facility] [address] [id number] [employer] Set Up Operator: Jozef Medina PhD, Phone: [phone] Performing Lab: see note - [facility] LB CBC no Diff (Hemogram) Reviewed date:01/31/2024 01:01:36 PM Interpretation: Performing Lab: Notes/Report: [facility] , White Blood Count 7.2 4.0-11.0 10 3/uL Red Blood Count 4.00 4.20-5.40 10 6/uL Hemoglobin 11.7 12.0-16.0 g/dL Hematocrit 37.7 36.0-48.0 % Mean Corpuscular Volume 94.3 81.0-99.0 fL Mean Corpuscular Hemoglobin 29.3 26.7-34.0 pg Mean Corpuscular HGB Conc 31.0 29.9-35.2 g/dL Red Cell Distribution Width 13.8 11.0-15.0 % Platelet Count 224 150-450 10 3/uL Mean Platelet Volume 9.5 9.5-13.5 fL Performing Lab: see note ML - [facility] LB VITAMIN D 25 [place] Reviewed date:01/31/2024 01:44:22 PM Interpretation: Performing Lab: Notes/Report: [facility] , Vitamin D 37.4 <20 ng/mL Vit D deficient 20-<30 ng/mL Vit D insufficient 30-100 ng/mL Vit D sufficient >100 ng/mL Potential Toxicity Performing Lab: see note ML - [facility] LB URINE T PROTEIN CREAT RATIO Reviewed date:02/01/2024 08:16:19 PM Interpretation: Performing Lab: Notes/Report: [facility] , Total Protein Urine Random 22.9 <=11.9 mg/dL Creatinine Urine Random 106.23 20.00-30 0.00 mg/dL Protein Creatinine Ratio Urine 0.22 Performing Lab: see note ML - [facility] LB URIC ACID SERUM Reviewed date:01/31/2024 01:01:36 PM Interpretation: Performing Lab: Notes/Report: [facility] , Uric Acid 7.6 2.6-6.0 mg/dL Performing Lab: see note ML - [facility] UA RANDOM W or MICROSCOPIC Reviewed date:02/01/2024 08:16:19 PM Interpretation: Performing Lab: Notes/Report: [facility] , Color Urine LT. YELLOW YELLOW Clarity Urine CLEAR CLEAR Specific [place] Urine 1.020 1.005-1.025 pH Urine 6.0 5.0-9.0 Protein Urine NEGATIVE NEG/TRACE mg/dL Glucose Urine UA NEGATIVE NEGATIVE mg/dL Bilirubin Urine NEGATIVE NEGATIVE Ketones Urine NEGATIVE NEGATIVE mg/dL Blood Urine NEGATIVE NEGATIVE Nitrite Urine POSITIVE NEGATIVE Urobilinogen Urine 0.2 0.2-1.0 EU/dL Leukocyte Esterase Urine TRACE NEGATIVE WBC Urine 2-5 NONE SEEN #/HPF RBC Urine NONE SEEN 0-2 #/HPF Bacteria Urine LARGE NONE SEEN #/HPF Mucus Urine NONE SEEN NONE SEEN Squamous Epithelial Cell Urine FEW NONE/RARE #/LPF Performing Lab: see note ML - [facility] RENAL FUNCTION PANEL Reviewed date:01/31/2024 01:01:36 PM Interpretation: Performing Lab: Notes/Report: [facility] , Sodium 144 136-145 mmol/L Potassium 4.9 3.5-5.1 mmol/L Chloride 110 98-107 mmol/L Carbon Dioxide 23.3 21.0-32.0 mmol/L Anion Gap 15.6 Glucose 86 74-106 mg/dL Blood Urea Nitrogen 32.0 7.0-18.0 mg/dL Creatinine 1.91 0.55-1.02 mg/dL Estimated GFR ( Radha 31 >=60 mL/min/1.73m 2 Estimated GFR (Non- Irene 26 >=60 mL/min/1.73m 2 BUN Creatinine Ratio 16.8 Calcium 8.8 8.5-10.1 mg/dL Phosphorus 3.1 2.6-4.7 mg/dL Albumin Level 3.0 3.4-5.0 g/dL Performing Lab: see note ML - [facility] MAGNESIUM Reviewed date:01/31/2024 01:01:36 PM Interpretation: Performing Lab: Notes/Report: [facility] , Magnesium 1.7 1.8-2.4 mg/dL Performing Lab: see note ML - [facility] LB MR LUMBAR SPINE WO CONTRAST Reviewed date:01/23/2024 05:32:21 PM Interpretation: Performing Lab: Notes/Report: MR LUMBAR SPINE WO CONTRAST 11/23/2023 12:56 PM ORDER [facility] CT lung screening low-dose Reviewed date:09/07/2023 07:07:22 AM Interpretation: Performing Lab: Notes/Report: Source Facility: [place] [address] [place] [address] CT Scan Report Signed Patient: JUSTIN SADLER MR#: [id number] : 1950 Acct:[id number] Age/Sex: 73 / F ADM Date: 09/06/23 Loc: CT Attending Dr: Amanda Kellogg D.O. Ordering Physician: Amanda Kellogg D.O. Date of Service: 09/06/23 Procedure(s): CT lung screening low-dose Accession Number(s): [id number] cc: Debbie Arvizu M.D. [place] [address] Patient Name: JUSTIN SADLER MRN: [id number] date: 1950 Sex: F Assigned Patient Location: CT Current Patient Location: CT Accession/Order Number: [id number] Exam Date: 09/06/2023 10:16 Report Date: 09/06/2023 10:43 At the request of: AMANDA KELLOGG Procedure: CT lung screening low-dose EXAMINATION: CT lung screening low-dose HISTORY: Personal history of certain other disease COMPARISON: 02/23/2022 TECHNIQUE: Axial, Coronal, and Sagittal images were created without the administration of IV contrast material. Dose reduction techniques were achieved by using automated exposure control and/or adjustment of mA and/or kV according to patient size and/or use of iterative reconstruction technique. FINDINGS: LUNGS: Scattered subcentimeter noncalcified pulmonary nodules mostly stable. New semisolid 4.6 mm medial aspect of the right upper lobe axial image #29 PLEURA: No mass, effusion, or pneumothorax. VASCULATURE: No abnormality. SARAH: No mass or pathologic adenopathy. MEDIASTINUM: No mass or pathologic adenopathy. CARDIAC: No enlargement or pericardial effusion. Pacemaker wires CORONARY ARTERIES: Coronary calcifications are mild. AORTA: No aortic aneurysm. Mild calcific atherosclerosis CHEST WALL: No mass or axillary adenopathy BONES: No bone lesion or fracture. LIMITED ABDOMEN: No suspicious findings. Limited images of the upper abdomen. OTHER: Negative. CT/CT lung screening low-dose IMPRESSION: LUNG SCREENING: Lung-RADS Category 2- Benign Appearance or Behavior. Nodules with a very low likelihood of becoming a clinically active cancer due to size or lack of growth. 2. Continue annual screening with LDCT in 12 months. Electronically authenticated by: RAJI HARRISON Date: 09/06/2023 10:43 Dictated By: Raji Harrison M.D. Signed By: 09/06/23 1046 DD/ 1043 TD/TT: [employer]: [place] [address] CT Scan Report Signed Patient: MARY SADLER SE MR#: [id number] : 1950 Acct:[id number] Age/Sex: 73 / F ADM Date: 09/06/23 Loc: CT Attending Dr: Amanda Kellogg D.O. Ordering Physician: Amanda Kellogg D.O. Date of Service: 09/06/23 Procedure(s): CT cary g screening low-dose Accession Number(s): [id number] cc: Debbie Arvizu M.D. [place] [id number] Patient Name: JUSTIN SADLER MRN: [id number] date: 1950 Sex: F Assigned Patient Location: CT Current Patient Loca tion: CT Accession/Order Numb er: [id number] Exam Date: 09/06/2023 10:16 Report Date: 09/06/2023 10:43 At the request of: AMANDA KELLOGG Procedure: CT lung screening low-dose EXAMINATION: CT lung screening low-dose HISTORY: Personal hi story of certain other disease COMPARISON: 02/23/2022 TECHNIQUE: Axial, Coronal, and Sagittal images were created without the administration of IV contrast material. Dose reduction techniques were achieved by using automated exposure control and/or adjustment of mA and/or kV according to patient size and/ or use of iterative reconstruction technique. FINDINGS: LUNGS: Scattered subcentimeter noncalcified pulmonary nodules mostly stable. New semisolid 4.6 mm medial aspect of the right upper lobe axial image #29 PLEURA: No mass, effusion, or pneumothorax. VASCULATURE: No abnormality. SARAH: No mass or pathologic adenopathy. MEDIASTINUM: No mass or pathologic adenopathy. CARDIAC: No enlargem ent or pericardial effusion. Pacemaker wires CORONARY ARTERIES: Coronary calcifications are mild. AORTA: No aortic aneurysm. Mild calcific atherosclerosis CHEST WALL: No mass or axillary adenopathy BONES: No bone lesio n or fracture. LIMITED ABDOMEN: No suspicious findings. Limited images of the upper abdomen. OTHER: Negative. C T/CT lung screening low-dose IMPRESSION: LUNG SCREENING: Lung -RADS Category 2- Benign Appearance or Behavior. Nodules with a very low likelihood of becoming a clinically active cancer due to size or lack of growth. 2 . Continue annual screening with LDCT in 12 months. Electronically authenticated by: RAJI HARRISON Date: 09/06/2023 10:43 Dictated By: Gomez Harrison M.D. Signed By: 09/06/23 1046 DD/ 1043 TD/TT: [employer]: CT Chest Low Dose for Screen ing* Reviewed date:09/06/2023 11:53:11 AM Interpretation: Performing Lab: Notes/Report: XR FOOT RT 2V Reviewed date:03/11/2024 08:36:26 PM Interpretation: Performing Lab: Notes/Report: Source Facility: [place] [address] [place] [address] XRay Report Signed Patient: JUSTIN SADLER MR#: [id number] : 1950 Acct:[id number] Age/Sex: 74 / F ADM Date: 03/10/24 Loc: RAD Attending Dr: Debbie Arvizu M.D. Ordering Physician: Debbie Arvizu M.D. Date of Service: 03/10/24 Procedure(s): XR foot RT 2V Accession Number(s): [id number] cc: Debbie Arvizu M.D. [address] [id number] Patient Name: JUSTIN SADLER MRN: [id number] date: 1950 Sex: F Assigned Patient Location: [facility] Current Patient Location: RAD Accession/Order Number: [id number] Exam Date: 03/10/2024 14:45 Report Date: 03/10/2024 15:20 At the request of: DEBBIE ARVIZU Procedure: XR foot RT 2V PROCEDURE: XR foot RT 2V HISTORY: Right Foot Pain M79.671 COMPARISON: None. FINDINGS: BONES:Ossification projecting dorsally from the base of one of the metatarsal tarsals seen on the lateral view suspected to represent a degenerative osteophyte. Mild degenerative changes the midfoot, first metatarsophalangeal joint, and the interphalangeal joints. SOFT TISSUES:Distal dorsal soft tissue swelling. EFFUSION:None visible. OTHER: Negative. XR/XR foot RT 2V IMPRESSION: 1. Prominent distal dorsal soft tissue swelling consistent with patient history. 2. Degenerative osteophyte versus fracture fragment along dorsal margin at the base of one of the metatarsals. I suspect this represents a degenerative osteophyte. Electronically authenticated by: JOE MOON Date: 03/10/2024 15:20 Dictated By: Joe Moon M.D. Signed By: 03/10/24 1522 DD/ 1520 TD/TT: [employer]: [place] [address] XRay Report Signed Patient: MARY SADLER SE MR#: [id number] : 1950 Acct:[id number] Age/Sex: 74 / F ADM Date: 03/10/24 Loc: [facility] Attending Dr: Yong Arvizu M.D. Ordering Physician: Debbie Arvizu M.D. Date of Service: 03/10/24 Procedure(s): XR aries t RT 2V Accession Number(s): [id number] cc: Debbie Arvizu M.D. [place] [address] Patient Name: JUSTIN SADLER MRN: [facility]:[id number] date: 1950 Sex: F Assigned Patient Location: RAD Current Patient Loca tion: RAD Accession/Order Numb er: [id number] Exam Date: 14:45 Report Date: 03/10/2024 15:20 At the request of: DEBBIE ARVIZU Procedure: XR foot RT 2V PROCEDURE: XR foot RT 2V HISTORY: Right Foot Pain M79.671 COMPARISON: None. FINDINGS: BONES:Ossification projecting dorsally from the base of one of the metatarsal tarsals seen on the lateral view suspected to represent a degenerative osteophyte. Mild degenerative changes the midfoot, first metatarsophalangeal joint, and the interphalangeal joints. SOFT TISSUES:Distal dorsal soft tissue swelling. EFFUSION:None visible. OTHER: Negative. X R/XR foot RT 2V IMPRESSION: 1. Prominent distal dorsal soft tissue swelling consistent with patient history. 2. Degenerative osteophyte versus fracture fragment along dorsal margin at the base of one of the metatarsals. I suspect this represents a degenerative osteophyte. Electronically authenticated by: JOE MOON Date: 03/10/2024 15:20 Dictated By: Joe Moon M.D. Signed By: 03/10/24 1522 DD/ 1520 TD/TT: [employer]: Reason For Referral Diagnosis 1 Chronic kidney disea se (CKD), stage III (moderate) (N18.30) Referral Organization [facility] Referring Provider First Name Dontrell Referring Provider Last Name Nolberto Referring Provider [facility] Referred Provider Lizette Schaffer Referred Provider Specialty Nephrology Referral Priority Routine Diagnosis 1 Spinal stenosis, lum bar region with neurogenic claudication (M48.062) Referral Organization [facility] Referring Provider First Name Dontrell Referring Provider Last Name Nolberto Referring Provider [facility] denis Referred Provider Pain Management, [facility] Referred Provider Specialty Pain Medicin e Referral Priority Routine Diagnosis 1 Bladder prolapse, fe male, acquired (N81.10) Referral Organization [facility] Referring Provider First Name Dontrell Referring Provider Last Name Nolberto Referring Provider [facility] Referred Provider Ladonna Malagon Referred Provider Specialty Urology Referral Priority Routine Diagnosis 1 Encounter for examin ation of ears and hearing without abnormal findings (Z01.10) Referral Organization [facility] Referring Provider First Name Dontrell Referring Provider Last Name Nolberto Referring Provider [facility] Referred Provider Lakshmi Mathews Referred Provider Specialty Otolaryngolo gy Referral Priority Routine Reason Patient would like Genia muhammad office please! Diagnosis 1 Hyperproteinemia (E8 8.09) Referral Organization [facility] Referring Provider First Name Dontrell Referring Provider Last Name Nolberto Referring Provider [facility] Referred Organization [facility] Referred Provider Beatriz Campos Referred Address [address],[place], [place],[address], Referred Provider Specialty Hematology/O ncology Referral Priority Routine Diagnosis 1 Rectal bleeding (K62 .5) Referral Organization [facility] Referring Provider First Name Dontrell Referring Provider Last Name Nolberto Referring Provider [facility] Referred Provider Rigoberto Tam Referred Provider Specialty Gastroentero logy Referral Priority Routine Medications Medication SIG (Take, Route, Frequency, Duration) Notes Start Date End Date Status Sodium Polystyrene Sulfonate - as directed Orally Active Liothyronine Sodium 25 MCG TAKE 1 AND 1/ 2 TABLETS BY MOUTH ONCE A DAY ON AN EMPTY STOMACH for 90 Active Yupelri 175 MCG/3ML 3 mL Inhalation Once a day 08/03/2024 Active Levothyroxine Sodium 88 MCG 1 tablet in the morning on an empty stomach Orally Once a day for 90 days Active Vitamin D Active Azelastine HCl 137 MCG/SPRAY INSTILL 1 S PRAY IN EACH NOSTRIL TWICE DAILY FOR 30 DAYS for 90 PRN Active Lisinopril 10 MG 1 tablet Orally Once a day Active Carvedilol 12.5 MG 1 tablet with food Orally Twice a day for 90 days Active Bumetanide 1 MG 1 tablet Orally Once a day 08/03/2024 Active Cefdinir 300 MG 2 capsule Orally onc e a day for 10 days 08/08/2024 Active Lovastatin 20 MG TAKE 1 TABLET BY EVERY DAY AT NIGHT for 90 Active Calcium 600 MG 1 tablet with meals Orally Twice a day 07/29/2023 Active Clotrimazole-Betamethasone 1-0.05 % APPLY SMALL AMOUNT TO AFFECTED AREA EXTERNALLY TWICE A DAY *USE SPARINGLY* for 30 days Active Magnesium 400 MG 1 capsule Orally onc e daily 08/03/2024 Active hydrALAZINE HCl 100 MG TAKE 1 TABLET BY MOUTH THREE TIMES A DAY FOR 90 DAYS for 90 Active Albuterol Sulfate (2.5 MG/3ML) 0.083% Inhale one vial in nebulizer 4 times a day. Active Doxycycline Monohydrate 100 MG 1 capsule Orally bid for 10 days 08/08/2024 Active Pantoprazole Sodium 40 MG 1 tablet Orall y twice daily for 30 days Active Albuterol Sulfate HFA 108 (90 Base) MCG/ACT 2 puffs as needed for SOB Inhalation every 4 hrs for 30 days Active Aspirin 81 81 MG 1 tablet Orally Once a day Active Immunizations Vaccine Route Administration Date Status Comme nts SARS-COV-2 (COVID 19 Pfizer 30mcg/0.3mL) Unknown 12/17/2020 Administered SARS-COV-2 (COVID 19 Pfizer 30mcg/0.3mL) Unknown 01/07/2021 Administered Social History Tobacco Use: Social History Observation [...] non-user Ex -very heavy cigarette smoker (40+/day) AUDIT-C (Standard) Question Answer Notes Did you have a drink containing alcohol in the p ast year? 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) Active confirmed Problem 95741698 Sick sinus syndrome (I49.5) Active confirmed Problem Chronic kidney disease stage 3 (disorder) (514016230) Chronic kidney disease, stage 3 (moderate) (N18.3) Active confirmed Problem 40142411 Bradycardia, unspecified (R00.1) Active confirmed Problem 041716501 Morbid obesity (E66.01) Active confirmed Problem COPD - Chronic obstructive pulmonary disease (17743569) COPD (chronic obstructive pulmonary disease) (J44.9) Active confirmed Problem Hypothyroidism (20854196) Hypothyroidism (E03.9) Active confirmed Problem Spinal stenosis (64561627) Spinal stenosis (M48.00) Active confirmed Problem Cardiac pacemaker in situ (931348844) Pacemaker (Z95.0) Active confirmed Problem Dizziness (227993797) Dizziness (R42) Active confirmed Problem Migraine (72786306) Migraine (G43.909) Active c onfirmed Problem 43653658 Chronic obstructive pulmonary disease, unspecified COPD type (J44.9) Active confirmed Problem Pain in right foot (970531950327434) Right foot pain (M79.671) Active confirmed Problem Serous otitis media (32925092) Serous otitis media (H65.90) Active confirmed Problem Cellulitis (185852309) Cellulitis (L03.90) Active confirmed Problem Diverticulitis (28093913) Diverticulitis (K57.92) Active confirmed Problem Hyperproteinemia (13327269) Hyperproteinemia (E88.09) Active confirmed Problem Tubular adenoma (821703712) Tubular adenoma (D36.9) Active confirmed Problem 004371705 Multiple pulmona ry nodules (R91.8) Active confirmed Problem Midline cystocele (472450414) Bladder prolapse, female, acquired (N81.10) Active confirmed Problem Lumbosacral spondylosis (122970237) Lumbosacral spondylosis (M47.817) Active confirmed Problem Essential hypertension (17759617) BP (high blood pressure) (I10) Active confirmed Problem 80366545 Pure hypercholesterolem ia, unspecified (E78.00) Active confirmed Problem Secondary pulmonary hypertension (52623928) Other secondary pulmonary hypertension (I27.29) Active confirmed Problem Pulmonary hypertension (55358772) Pulmonary hypertension (I27.20) Active confirmed Problem Neurogenic claudication (905885920) Spinal stenosis, lumbar region with neurogenic claudication (M48.062) Active confirmed Problem Malnutrition of mild degree ([place]: 75% to less than 90% of standard weight) (08073319) Mild protein malnutrition (E44.1) Active confirmed Problem 815230474 COVID-19 (U07.1) Active confirmed Problem Body mass index 40+ - morbidly obese (101401986) Body mass index [BMI] 50.0-59.9, adult (Z68.43) Active confirmed Problem Chronic kidney disease stage 3 (disorder) (105459257) Chronic kidney disease (CKD), stage III (moderate) (N18.30) Active confirmed Problem 121685467 Other ventricula r tachycardia (I47.29) Active confirmed Problem 018382537 Other supraventricular tachycardia (I47.19) Active confirmed Vital Signs Heart Rate 76 /min 11/23/2023 Temperature 98.0 degrees Fahrenheit 06/01/2024 Respiratory Rate 18 /min 11/23/2023 Oximetry 97 % 11/23/2023 Blood pressure diastolic 76 mm Hg 08/09/2024 Height 65 in 08/09/2024 Blood pressure systolic 128 mm Hg 08/09/2024 Weight 291 lbs 08/09/2024 BMI 48.42 kg/m2 08/09/2024 Encounters Encounter Location Date Provider Diagnosis [facility] [address] [place] [address] 08/08/2024 Dontrell Hoy Cellulitis L03.[id number] [place] [address] 08/09/2024 Dontrell Hoy Cellulitis L03.[address] [address] 03/10/2024 Dontrell Hoy Right foot pain M79. 671 [facility] [address] [place] [address] 04/17/2024 Dontrell Hoy Serous otitis media H65.90 [facility] [address] [place] [address] 08/03/2024 Dontrell Hoy Migraine G43.909 [facility] [place] [address] [place] [address] 11/23/2023 Amanda Kellogg Multiple pulmonary nodules R91.8 ; COPD (chronic obstructive pulmonary disease) J44.9 ; History of tobacco abuse Z87.891 ; History of COVID-19 Z86.16 ; Encounter for screening for malignant neoplasm of respiratory organs Z12.2 ; Morbid obesity E66.01 and Body mass index [BMI] 45.0-49.9, adult Z68.42 [facility] [address] [place] [address] 09/21/[address] [facility] [address] [place] [address] 12/22/2023 Jose Angel Mensah [facility] [address] [place] [address] 01/25/2024 Dontrell Griffithy Encounter for Medica re annual wellness exam Z00.00 [facility] [address] [place] [place] [address] 07/25/2024 Beatriz Beth [facility] [address] [place] [address] 12/22/2023 ASC Provider [facility] [address] [place] [address] 09/21/2023 ASC Provider [facility] [address] [place] [address] 01/31/2024 Dontrell Hoy Spinal stenosis M48. 00 and Pulmonary hypertension I27.20 [facility] [address] [place] [address] 06/01/2024 Dontrell Hoy Acute bronchitis, unspecified organism J20.9 [facility] [place] [address] 08/13/2023 Jose Angel Mensah [facility] [address] [place] [address] 09/30/2023 Dontrell Hoy Chronic kidney disea se (CKD), stage III (moderate) N18.30 [facility] [address] [place] [address] 10/04/2023 Dontrell Hoy COPD (chronic obstructive pulmonary disease) J44.9 [facility] [address] [place] [address] 01/25/2024 Dontrell Hoy [facility] [address] [place] [address] 01/31/2024 Dontrell Hoy Spinal stenosis, lum bar region with neurogenic claudication M48.062 [facility] [address] [place] [address] 02/01/2024 Dontrell Hoy [facility] [address] [place] [address] 02/21/2024 Dontrell Hoy Bladder prolapse, female, acquired N81.10 [facility] [address] [place] [address] 03/11/2024 Dontrell Nachoy [facility] [address] [place] [address] 04/05/2024 Dontrell Hoy COPD (chronic obstructive pulmonary disease) J44.9 and Right foot pain M79.671 [facility] [address] [place] [address] 04/24/2024 Dontrell Hoy Encounter for examination of ears and hearing without abnormal findings Z01.10 [facility] [address] [place] [address] 05/31/2024 Dontrell Hoy Other fatigue R53.83 ; Other abnormal glucose R73.09 ; Pure hypercholesterolemia, unspecified E78.00 and Encounter for screening for malignant neoplasm of colon Z12.11 [facility] [address] [place] [address] 06/08/2024 Dontrell Hoy [facility] [address] [place] [address] 06/20/2024 Dontrell Hoy Hypothyroidism E03.9 [facility] [address] [place] [address] 06/22/2024 Dontrell Hoy Rectal bleeding K62. 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 Z79.891 [facility] [address] [address] 10/19/2023 Jose Angel Mensah Spinal stenosis, lum bar region with neurogenic claudication M48.062 ; Lumbosacral spondylosis M47.817 ; Other termite treater helper (current) drug therapy Z79.899 and Vertebrogenic low back pain M54.51 [facility] [address] [address] 12/07/2023 Jose Angel Mensah Spinal stenosis, lum bar region with neurogenic claudication M48.062 ; Lumbosacral spondylosis M47.817 ; Other termite treater helper (current) drug therapy Z79.899 and Vertebrogenic low back pain M54.51 Assessments Encounter Date Diagnosis (ICD Code) Assessment Notes Treatment Notes Treatment Clinical Notes Section Notes 11/23/2023 Multiple pulmonary nodules (ICD-10 - R91.8) New 2-3cm RUL nodules on LDCT 02/23/2022 compared to 02/25/2021. These have resolved on CT 08/26/2022. Follow-up LDCT 09/06/2023 noted a new 4.6 mm right upper lobe nodule. Etiology is unclear. Unclear why these keep occurring in the right upper lobe. She denies any aspiration/chokin g. Explained to the patient due to the small size and nature, there is not much to be done other than to continue monitoring it. It is classified as RADS-2. A [address] is sufficient for follow-up. Explained according to Fleischner Society guidelines, even this would be optional. She is near the end of LDCT screening-next year would be the last year for coverage. LDCT has been ordered for August 2024. Will follow-up with her sooner. She is counseled on monitoring for B symptoms such as decreased appetite unexplained weight loss, excessive night sweats, and hemoptysis. 10/19/2023 Spinal stenosis, lumbar region with neurogenic claudication (ICD-10 - M48.062) This is a 73 y.o. female with PMH of obesity, KATIE, COPD, CKD, SSS s/p PPM presenting with chronic low back and leg pain most consistent on history and physical exam with a diagnosis of lumboscaral spondylosis, intervertebral disc degeneration, lumbar spinal stenosis with neurogenic claudication 01/30/22 XR Lumbar Spine: Advancing multilevel osteoarthritis 10/10/21- lumbar MRI - L1-2 normal, L2-3 moderate CCS, mild left NFN, moderate disc bulge, L3-4 moderate CCS, mild bl NFN, mild disc bulge, mild facet OA, L4-5 moderate CCS, right foraminal narrowing, mild left foraminal narrowing, moderate facet OA, L5-S1 moderate left and mild right foraminal narrowing, mo CCS, mild bulge and facet OA 11/21/21 - interlaminar lumbar epidural at L4-5 over 80% relief of radicular symptoms, and 50% relief of low back pain > 3 months 02/18/22 - bilateral lumbar medial branch block L3-4 and L4-5 80% relief for the duration of the local 03/04/22 - bilateral lumbar medial branch block L4-5 and L5-S1 80% relief for the duration of the local 04/01/22 - Bilateral radiofrequency ablation L3-4 and L4-5 no significant relief symptoms related to spinal stenosis , believes she had 50% relief of axial low back pain for > 6 months 05/11/22 -MILD L3-L4, L4-L5 over 50% relief of back pain, over 80% relief of leg pain 10/07/22 - Trans foraminal epidural steroid injection, right L4-5 Over 90% relief of radicular pain symptoms 11/30/22- Vertiflex at L3-4 and L4-5 significant improvement in pain with ambulation 05/31/23 Bilateral S1 TFESI - 20% relief 09/21/23 -bilateral lumbar radiofrequency ablation L4-5, L5-S1 07/29/23 - In PT at [facility], limited relief from TFESI, continued pain in low back, exertional , does have axial symptoms and due to prior relief of axail low back pain from prior lumbar RFA I recommend repeating this. I ordered lumbar xray today that shows spacers at L3-4 and L4-5 are well seated, there is significant DDD from L2-S1. Recommend new lumbar mri to evaluate for adjacent segment progression. patient was initially doing well after mild and then vertiflex placement, she was previously discharged from PT due to cardiac issues but these have resolved after PPM placement. 10/19/2023 patient has continued low back pain this point recommend new lumbar MRI. There may be MRI conditional LAD with pacemaker so we will fax this to hospital system. Can continue tramadol, refill was sent in. I reviewed MRI from 2021 patient has disc degeneration from L3-S1 with associated Modic degenerative endplate changes, Intracept could be an additional option. Discussed option of spinal cord stimulator patient is not interested in this option. PLAN: 1. Interventions: - consider options vertiflex at adjacent segments, intracept 2. Physical therapy: Continue PT/OT 3. Medications: OARRS checked, UDS today- appropriate - tramadol 50 mg PO BID 4. Imaging: History of lumbar MRI from 2021 Reviewed lumbar x-ray, ordered new lumbar MRI faxed to [facility] due to pacemaker 5. Consults: Has followed with neurosurgery, not planning surgical intervention at this time, following with cardiology 6. RTC : Following MRI to discuss options 12/07/2023 Spinal stenosis, lumbar region with neurogenic claudication (ICD-10 - M48.062) This is a 73 y.o. female with PMH of obesity, KATIE, COPD, CKD, SSS s/p PPM presenting with chronic low back and leg pain most consistent on history and physical exam with a diagnosis of lumboscaral spondylosis, intervertebral disc degeneration, lumbar spinal stenosis with neurogenic claudication 01/30/22 XR Lumbar Spine: Advancing multilevel osteoarthritis 10/10/21- lumbar MRI - L1-2 normal, L2-3 moderate CCS, mild left NFN, moderate disc bulge, L3-4 moderate CCS, mild bl NFN, mild disc bulge, mild facet OA, L4-5 moderate CCS, right foraminal narrowing, mild left foraminal narrowing, moderate facet OA, L5-S1 moderate left and mild right foraminal narrowing, mo CCS, mild bulge and facet OA 11/21/21 - interlaminar lumbar epidural at L4-5 over 80% relief of radicular symptoms, and 50% relief of low back pain > 3 months 02/18/22 - bilateral lumbar medial branch block L3-4 and L4-5 80% relief for the duration of the local 03/04/22 - bilateral lumbar medial branch block L4-5 and L5-S1 80% relief for the duration of the local 04/01/22 - Bilateral radiofrequency ablation L3-4 and L4-5 no significant relief symptoms related to spinal stenosis , believes she had 50% relief of axial low back pain for > 6 months 05/11/22 -MILD L3-L4, L4-L5 over 50% relief of back pain, over 80% relief of leg pain for 6-9 months 10/07/22 - Trans foraminal epidural steroid injection, right L4-5 Over 90% relief of radicular pain symptoms 11/30/22- Vertiflex at L3-4 and L4-5 significant improvement in pain with ambulation for 6 to 9 months 05/31/23 Bilateral S1 TFESI - 20% relief 09/21/23 -bilateral lumbar radiofrequency ablation L4-5, L5-S1 50% relief of axial pain 07/29/23 - In PT at [facility], limited relief from TFESI, continued pain in low back, exertional , does have axial symptoms and due to prior relief of axail low back pain from prior lumbar RFA I recommend repeating this. I ordered lumbar xray today that shows spacers at L3-4 and L4-5 are well seated, there is significant DDD from L2-S1. Recommend new lumbar mri to evaluate for adjacent segment progression. patient was initially doing well after mild and then vertiflex placement, she was previously discharged from PT due to cardiac issues but these have resolved after PPM placement. 10/19/2023 patient has continued low back pain this point recommend new lumbar MRI. There may be MRI conditional LAD with pacemaker so we will fax this to hospital system. Can continue tramadol, refill was sent in. I reviewed MRI from 2021 patient has disc degeneration from L3-S1 with associated Modic degenerative endplate changes, Intracept could be an additional option. Discussed option of spinal cord stimulator patient is not interested in this option. 11/23/23 lumbar mri - Multilevel mild to moderate degenerative changes of lumbar spine as described,fransisco ar to slightly progressed compared to prior. Findings most prominent L4-R6whngg there is moderate severe right neural foraminal narrowing. 12/09/2023 reviewed new lumbar imaging with patient. She has disease progression at L3-4 and L4-5 slightly worsening central canal narrowing, she is less severe central canal narrowing L1-2 and L2-3. Patient did initially do well following mild for roughly 9 months and Vertiflex approximately the same period of time. Device spacers appear to be seated appropriately. I discussed options with the patient. I discussed option of referral to spine surgeon for decompression patient does not wish to proceed with this. I discussed other options with the patient she only has pain with ambulation has no pain with rest or sitting. She has no significant pain with forward flexion despite degenerative disc disease and Modic changes she is not a great Intracept candidate. I believe most of her pain symptoms are coming from spinal stenosis that has worsened when compared to prior studies. I discussed option of epidural injections. Will proceed with bilateral L4-5 transforaminal epidural [facility] surgery center. Otherwise patient recommended to continue home exercise program, stretching, core strengthening, PT OT, advised to use assist device when ambulating and advise benefits of weight loss PLAN: 1. Interventions: Bilateral L4-5 transforaminal epidural in [facility] outpatient surgery center Possible candidate for Vertiflex at adjacent segments, however I believe worsening of pain symptoms is due to disease progression at L3-4 and L4-5 levels rather than L1-2 and L2-3 Not a great Intracept candidate 2. Physical therapy: Continue PT/OT 3. Medications: OARRS checked, UDS today- appropriate Discontinue tramadol due to lack of benefit, could trial [place] versus Percocet 4. Imaging: History of lumbar MRI from 2021 Reviewed new lumbar imaging with patient as above 5. Consults: Has followed with neurosurgery, not planning surgical intervention at this time, following with cardiology 6. RTC : For procedure 12/07/2023 Lumbosacral spondylosis (ICD-10 - M47.817) This is a 73 y.o. female with PMH of obesity, KATIE, COPD, CKD, SSS s/p PPM presenting with chronic low back and leg pain most consistent on history and physical exam with a diagnosis of lumboscaral spondylosis, intervertebral disc degeneration, lumbar spinal stenosis with neurogenic claudication 01/30/22 XR Lumbar Spine: Advancing multilevel osteoarthritis 10/10/21- lumbar MRI - L1-2 normal, L2-3 moderate CCS, mild left NFN, moderate disc bulge, L3-4 moderate CCS, mild bl NFN, mild disc bulge, mild facet OA, L4-5 moderate CCS, right foraminal narrowing, mild left foraminal narrowing, moderate facet OA, L5-S1 moderate left and mild right foraminal narrowing, mo CCS, mild bulge and facet OA 11/21/21 - interlaminar lumbar epidural at L4-5 over 80% relief of radicular symptoms, and 50% relief of low back pain > 3 months 02/18/22 - bilateral lumbar medial branch block L3-4 and L4-5 80% relief for the duration of the local 03/04/22 - bilateral lumbar medial branch block L4-5 and L5-S1 80% relief for the duration of the local 04/01/22 - Bilateral radiofrequency ablation L3-4 and L4-5 no significant relief symptoms related to spinal stenosis , believes she had 50% relief of axial low back pain for > 6 months 05/11/22 -MILD L3-L4, L4-L5 over 50% relief of back pain, over 80% relief of leg pain for 6-9 months 10/07/22 - Trans foraminal epidural steroid injection, right L4-5 Over 90% relief of radicular pain symptoms 11/30/22- Vertiflex at L3-4 and L4-5 significant improvement in pain with ambulation for 6 to 9 months 05/31/23 Bilateral S1 TFESI - 20% relief 09/21/23 -bilateral lumbar radiofrequency ablation L4-5, L5-S1 50% relief of axial pain 07/29/23 - In PT at [facility], limited relief from TFESI, continued pain in low back, exertional , does have axial symptoms and due to prior relief of axail low back pain from prior lumbar RFA I recommend repeating this. I ordered lumbar xray today that shows spacers at L3-4 and L4-5 are well seated, there is significant DDD from L2-S1. Recommend new lumbar mri to evaluate for adjacent segment progression. patient was initially doing well after mild and then vertiflex placement, she was previously discharged from PT due to cardiac issues but these have resolved after PPM placement. 10/19/2023 patient has continued low back pain this point recommend new lumbar MRI. There may be MRI conditional LAD with pacemaker so we will fax this to hospital system. Can continue tramadol, refill was sent in. I reviewed MRI from 2021 patient has disc degeneration from L3-S1 with associated Modic degenerative endplate changes, Intracept could be an additional option. Discussed option of spinal cord stimulator patient is not interested in this option. 11/23/23 lumbar mri - Multilevel mild to moderate degenerative changes of lumbar spine as described,simil ar to slightly progressed compared to prior. Findings most prominent L4-K2zcsgx there is moderate severe right neural foraminal narrowing. 12/09/2023 reviewed new lumbar imaging with patient. She has disease progression at L3-4 and L4-5 slightly worsening central canal narrowing, she is less severe central canal narrowing L1-2 and L2-3. Patient did initially do well following mild for roughly 9 months and Vertiflex approximately the same period of time. Device spacers appear to be seated appropriately. I discussed options with the patient. I discussed option of referral to spine surgeon for decompression patient does not wish to proceed with this. I discussed other options with the patient she only has pain with ambulation has no pain with rest or sitting. She has no significant pain with forward flexion despite degenerative disc disease and Modic changes she is not a great Intracept candidate. I believe most of her pain symptoms are coming from spinal stenosis that has worsened when compared to prior studies. I discussed option of epidural injections. Will proceed with bilateral L4-5 transforaminal epidural [facility] outpatient surgery center. Otherwise patient recommended to continue home exercise program, stretching, core strengthening, PT OT, advised to use assist device when ambulating and advise benefits of weight loss PLAN: 1. Interventions: Bilateral L4-5 transforaminal epidural in [facility] outpatient surgery center Possible candidate for Vertiflex at adjacent segments, however I believe worsening of pain symptoms is due to disease progression at L3-4 and L4-5 levels rather than L1-2 and L2-3 Not a great Intracept candidate 2. Physical therapy: Continue PT/OT 3. Medications: OARRS checked, UDS today- appropriate Discontinue tramadol due to lack of benefit, could trial [place] versus Percocet 4. Imaging: History of lumbar MRI from 2021 Reviewed new lumbar imaging with patient as above 5. Consults: Has followed with neurosurgery, not planning surgical intervention at this time, following with cardiology 6. RTC : For procedure 01/25/2024 Encounter for Medicare annual wellness exam (ICD-10 - Z00.00) Patient was seen today for a subsequent medicare wellness appointment. A total of 45 mintues was spent with the patient, completed was a SLUMS memory test, home safety screening, anxiety/depress ion screening and vision test. Patient scored well on all tests. Patient is up to date on vaccines, mammogram, bone densitytest and colonoscopy 01/31/2024 Spinal stenosis (ICD-10 - M48.00) 01/31/2024 Pulmonary hypertension (ICD-10 - I27.20) 03/10/2024 Right foot pain (ICD-10 - M79.671) 04/17/2024 Serous otitis media (ICD-10 - H65.90) mucinex, zyurtec and flonase - update in a week 06/01/2024 Acute bronchitis, unspecified organism (ICD-10 - J20.9) Rest and drink more liquids, especially water. You may use a humidifier or vaporizer to help keep the drainage moist. Cbnu-mww-uyrkwxg Nasal Saline may help the stuffy and runny nose. Use Ibuprofen and or Tylenol as needed for fever, chills, body aches or pain. Children 5 years old should not be given ohms-sif-sqekxrp cough and cold medications such as guaifenesin and dextromethorphan. If you're over age 5, you may try wqsd-qkm-ciwwclg cold medications such as guaifenesin and dextromethorphan, or multi-symptom cold reliever such as Dayquil to help reduce the symptoms. Antibiotics have been prescribed. You should take these until completed and follow the directions. Antibiotics can sometimes cause upset stomach, and in rare cases, serious allergic reactions or serious gastrointestinal problems. If you start having severe abdominal pain, severe vomiting, or bloody diarrhea, you should be reevaluated by your physician or urgent care immediately. Follow up with your Primary Care Provider or return to clinic if symptoms do not improve within 3-5 days. If you develop severe symptoms such as shortness of breath, repeated vomiting, coughing up blood, or chest pain you should go to the emergency room or call 911 08/03/2024 Migraine (ICD-10 - G43.909) 08/08/2024 Cellulitis (ICD-10 - L03.90) 08/09/2024 Cellulitis (ICD-10 - L03.90) 01/19/2024 Lumbosacral spondylosis (ICD-10 - M47.817) 09/30/2023 Chronic kidney disease (CKD), stage III (moderate) (ICD-10 - N18.30) 10/04/2023 COPD (chronic obstructive pulmonary disease) (ICD-10 - J44.9) 01/31/2024 Spinal stenosis, lumbar region with neurogenic claudication (ICD-10 - M48.062) 02/21/2024 Bladder prolapse, female, acquired (ICD-10 - N81.10) 04/05/2024 COPD (chronic obstructive pulmonary disease) (ICD-10 - J44.9) 04/24/2024 Encounter for examination of ears and hearing without abnormal findings (ICD-10 - Z01.10) 05/31/2024 Other fatigue (ICD-10 - R53.83) 06/20/2024 Hypothyroidism (ICD-10 - E03.9) 06/22/2024 Rectal bleeding (ICD-10 - K62.5) 06/22/2024 Hyperproteinemia (ICD-10 - E88.09) 05/31/2024 Other abnormal glucose (ICD-10 - R73.09) 04/05/2024 Right foot pain (ICD-10 - M79.671) 01/19/2024 Spinal stenosis, lumbar region with neurogenic claudication (ICD-10 - M48.062) - Dr. Mensah patient - 1. Discontinue tramadol due to lack of benefit, could trial [place] versus Percocet 2. Continue home exercise program, stretching, core strengthening, 3. Continue PT/OT 4. Advised to use assist device when ambulating 5. Weight loss encouraged 6. S/p Vertiflex at L3-4 and L4-5 on 11/30/22 with improvement for 6-9 months. Possible candidate for Vertiflex at adjacent segments, however I believe worsening of pain symptoms is due to disease progression at L3-4 and L4-5 levels rather than L1-2 and L2-3 7. S/p MILD at L3-4 and L4-5 on 05/11/22 with over 50% relief of back pain, over 80% relief of leg pain for 6-9 months 8. Discussed option of SCS - pt is not interested in this 9. Not a great Intracept candidate 10. Has followed with neurosurgery, not planning surgical intervention at this time 11. Consider repeat bilateral TFE at L4-5 12. Consider repeat bilateral lumbar RFA at L4-5 and L5-S1 13. 01/19/24 Pt was extremely upset being seen by a nurse practitioner. Discussed the way our office ran and that if needed, Dr. Mensah is in the office. She states that she feels this is unacceptable and she may consider going elsewhere. 14. Follow up as needed for injections - History: This is a 73 y.o. female with PMH of obesity, KATIE, COPD, CKD, SSS s/p PPM presenting with chronic low back and leg pain most consistent on history and physical exam with a diagnosis of lumboscaral spondylosis, intervertebral disc degeneration, lumbar spinal stenosis with neurogenic claudication - 11/23/23 Lumbar MRI- Multilevel mild to moderate degenerative changes of lumbar spine as described,simil ar to slightly progressed compared to prior. Findings most prominent L4-[id number] there is moderate severe right neural foraminal narrowing. - 07/29/23 Lumbar xray (per Dr. Mensah)- shows spacers at L3-4 and L4-5 are well seated, there is significant DDD from L2-S1. -01/30/22 Lumbar xray- Advancing multilevel osteoarthritis- 10/10/21 Lumbar MRI- L1-2 normal, L2-3 moderate CCS, mild left NFN, moderate disc bulge, L3-4 moderate CCS, mild bl NFN, mild disc bulge, mild facet OA, L4-5 moderate CCS, right foraminal narrowing, mild left foraminal narrowing, moderate facet OA, L5-S1 moderate left and mild right foraminal narrowing, mo CCS, mild bulge and facet OA 01/19/2024 Vertebrogenic low back pain (ICD-10 - M54.51) 12/07/2023 Other termite treater helper (current) drug therapy (ICD-10 - Z79.899) This is a 73 y.o. female with PMH of obesity, KATIE, COPD, CKD, SSS s/p PPM presenting with chronic low back and leg pain most consistent on history and physical exam with a diagnosis of lumboscaral spondylosis, intervertebral disc degeneration, lumbar spinal stenosis with neurogenic claudication 01/30/22 XR Lumbar Spine: Advancing multilevel osteoarthritis 10/10/21- lumbar MRI - L1-2 normal, L2-3 moderate CCS, mild left NFN, moderate disc bulge, L3-4 moderate CCS, mild bl NFN, mild disc bulge, mild facet OA, L4-5 moderate CCS, right foraminal narrowing, mild left foraminal narrowing, moderate facet OA, L5-S1 moderate left and mild right foraminal narrowing, mo CCS, mild bulge and facet OA 11/21/21 - interlaminar lumbar epidural at L4-5 over 80% relief of radicular symptoms, and 50% relief of low back pain > 3 months 02/18/22 - bilateral lumbar medial branch block L3-4 and L4-5 80% relief for the duration of the local 03/04/22 - bilateral lumbar medial branch block L4-5 and L5-S1 80% relief for the duration of the local 04/01/22 - Bilateral radiofrequency ablation L3-4 and L4-5 no significant relief symptoms related to spinal stenosis , believes she had 50% relief of axial low back pain for > 6 months 05/11/22 -MILD L3-L4, L4-L5 over 50% relief of back pain, over 80% relief of leg pain for 6-9 months 10/07/22 - Trans foraminal epidural steroid injection, right L4-5 Over 90% relief of radicular pain symptoms 11/30/22- Vertiflex at L3-4 and L4-5 significant improvement in pain with ambulation for 6 to 9 months 05/31/23 Bilateral S1 TFESI - 20% relief 09/21/23 -bilateral lumbar radiofrequency ablation L4-5, L5-S1 50% relief of axial pain 07/29/23 - In PT at [facility], limited relief from TFESI, continued pain in low back, exertional , does have axial symptoms and due to prior relief of axail low back pain from prior lumbar RFA I recommend repeating this. I ordered lumbar xray today that shows spacers at L3-4 and L4-5 are well seated, there is significant DDD from L2-S1. Recommend new lumbar mri to evaluate for adjacent segment progression. patient was initially doing well after mild and then vertiflex placement, she was previously discharged from PT due to cardiac issues but these have resolved after PPM placement. 10/19/2023 patient has continued low back pain this point recommend new lumbar MRI. There may be MRI conditional LAD with pacemaker so we will fax this to hospital system. Can continue tramadol, refill was sent in. I reviewed MRI from 2021 patient has disc degeneration from L3-S1 with associated Modic degenerative endplate changes, Intracept could be an additional option. Discussed option of spinal cord stimulator patient is not interested in this option. 11/23/23 lumbar mri - Multilevel mild to moderate degenerative changes of lumbar spine as described,simil ar to slightly progressed compared to prior. Findings most prominent L4-X1wpqes there is moderate severe right neural foraminal narrowing. 12/09/2023 reviewed new lumbar imaging with patient. She has disease progression at L3-4 and L4-5 slightly worsening central canal narrowing, she is less severe central canal narrowing L1-2 and L2-3. Patient did initially do well following mild for roughly 9 months and Vertiflex approximately the same period of time. Device spacers appear to be seated appropriately. I discussed options with the patient. I discussed option of referral to spine surgeon for decompression patient does not wish to proceed with this. I discussed other options with the patient she only has pain with ambulation has no pain with rest or sitting. She has no significant pain with forward flexion despite degenerative disc disease and Modic changes she is not a great Intracept candidate. I believe most of her pain symptoms are coming from spinal stenosis that has worsened when compared to prior studies. I discussed option of epidural injections. Will proceed with bilateral L4-5 transforaminal epidural [facility]. Otherwise patient recommended to continue home exercise program, stretching, core strengthening, PT OT, advised to use assist device when ambulating and advise benefits of weight loss PLAN: 1. Interventions: Bilateral L4-5 transforaminal epidural in [facility] outpatient surgery center Possible candidate for Vertiflex at adjacent segments, however I believe worsening of pain symptoms is due to disease progression at L3-4 and L4-5 levels rather than L1-2 and L2-3 Not a great Intracept candidate 2. Physical therapy: Continue PT/OT 3. Medications: OARRS checked, UDS today- appropriate Discontinue tramadol due to lack of benefit, could trial [place] versus Percocet 4. Imaging: History of lumbar MRI from 2021 Reviewed new lumbar imaging with patient as above 5. Consults: Has followed with neurosurgery, not planning surgical intervention at this time, following with cardiology 6. RTC : For procedure 10/19/2023 Lumbosacral spondylosis (ICD-10 - M47.817) This is a 73 y.o. female with PMH of obesity, KATIE, COPD, CKD, SSS s/p PPM presenting with chronic low back and leg pain most consistent on history and physical exam with a diagnosis of lumboscaral spondylosis, intervertebral disc degeneration, lumbar spinal stenosis with neurogenic claudication 01/30/22 XR Lumbar Spine: Advancing multilevel osteoarthritis 10/10/21- lumbar MRI - L1-2 normal, L2-3 moderate CCS, mild left NFN, moderate disc bulge, L3-4 moderate CCS, mild bl NFN, mild disc bulge, mild facet OA, L4-5 moderate CCS, right foraminal narrowing, mild left foraminal narrowing, moderate facet OA, L5-S1 moderate left and mild right foraminal narrowing, mo CCS, mild bulge and facet OA 11/21/21 - interlaminar lumbar epidural at L4-5 over 80% relief of radicular symptoms, and 50% relief of low back pain > 3 months 02/18/22 - bilateral lumbar medial branch block L3-4 and L4-5 80% relief for the duration of the local 03/04/22 - bilateral lumbar medial branch block L4-5 and L5-S1 80% relief for the duration of the local 04/01/22 - Bilateral radiofrequency ablation L3-4 and L4-5 no significant relief symptoms related to spinal stenosis , believes she had 50% relief of axial low back pain for > 6 months 05/11/22 -MILD L3-L4, L4-L5 over 50% relief of back pain, over 80% relief of leg pain 10/07/22 - Trans foraminal epidural steroid injection, right L4-5 Over 90% relief of radicular pain symptoms 11/30/22- Vertiflex at L3-4 and L4-5 significant improvement in pain with ambulation 05/31/23 Bilateral S1 TFESI - 20% relief 09/21/23 -bilateral lumbar radiofrequency ablation L4-5, L5-S1 07/29/23 - In PT at [facility], limited relief from TFESI, continued pain in low back, exertional , does have axial symptoms and due to prior relief of axail low back pain from prior lumbar RFA I recommend repeating this. I ordered lumbar xray today that shows spacers at L3-4 and L4-5 are well seated, there is significant DDD from L2-S1. Recommend new lumbar mri to evaluate for adjacent segment progression. patient was initially doing well after mild and then vertiflex placement, she was previously discharged from PT due to cardiac issues but these have resolved after PPM placement. 10/19/2023 patient has continued low back pain this point recommend new lumbar MRI. There may be MRI conditional LAD with pacemaker so we will fax this to hospital system. Can continue tramadol, refill was sent in. I reviewed MRI from 2021 patient has disc degeneration from L3-S1 with associated Modic degenerative endplate changes, Intracept could be an additional option. Discussed option of spinal cord stimulator patient is not interested in this option. PLAN: 1. Interventions: - consider options vertiflex at adjacent segments, intracept 2. Physical therapy: Continue PT/OT 3. Medications: OARRS checked, UDS today- appropriate - tramadol 50 mg PO BID 4. Imaging: History of lumbar MRI from 2021 Reviewed lumbar x-ray, ordered new lumbar MRI faxed to [facility] due to pacemaker 5. Consults: Has followed with neurosurgery, not planning surgical intervention at this time, following with cardiology 6. RTC : Following MRI to discuss options 11/23/2023 COPD (chronic obstructive pulmonary disease) (ICD-10 - J44.9) Since the patient had a pacemaker inserted December 2022, her breathing has markedly improved. She has been able to stop Yupelri without any worsening in her dyspnea. And albuterol seems to be limited to around seasonal changes. For now, remain off Yupelri. Currently, the weather is transitioning to [place]. She can resume her albuterol. If she finds she is using it daily for a week or more, then she can try to restart any old Yupelri she has. If that does not help, then she can contact office for further recommendations. 11/23/2023 History of tobacco abuse (ICD-10 - Z87.891) 2ppd x 30 years, quit 2009. 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 female with PMH of obesity, KATIE, COPD, CKD, SSS s/p PPM presenting with chronic low back and leg pain most consistent on history and physical exam with a diagnosis of lumboscaral spondylosis, intervertebral disc degeneration, lumbar spinal stenosis with neurogenic claudication 01/30/22 XR Lumbar Spine: Advancing multilevel osteoarthritis 10/10/21- lumbar MRI - L1-2 normal, L2-3 moderate CCS, mild left NFN, moderate disc bulge, L3-4 moderate CCS, mild bl NFN, mild disc bulge, mild facet OA, L4-5 moderate CCS, right foraminal narrowing, mild left foraminal narrowing, moderate facet OA, L5-S1 moderate left and mild right foraminal narrowing, mo CCS, mild bulge and facet OA 11/21/21 - interlaminar lumbar epidural at L4-5 over 80% relief of radicular symptoms, and 50% relief of low back pain > 3 months 02/18/22 - bilateral lumbar medial branch block L3-4 and L4-5 80% relief for the duration of the local 03/04/22 - bilateral lumbar medial branch block L4-5 and L5-S1 80% relief for the duration of the local 04/01/22 - Bilateral radiofrequency ablation L3-4 and L4-5 no significant relief symptoms related to spinal stenosis , believes she had 50% relief of axial low back pain for > 6 months 05/11/22 -MILD L3-L4, L4-L5 over 50% relief of back pain, over 80% relief of leg pain 10/07/22 - Trans foraminal epidural steroid injection, right L4-5 Over 90% relief of radicular pain symptoms 11/30/22- Vertiflex at L3-4 and L4-5 significant improvement in pain with ambulation 05/31/23 Bilateral S1 TFESI - 20% relief 09/21/23 -bilateral lumbar radiofrequency ablation L4-5, L5-S1 07/29/23 - In PT at [facility], limited relief from TFESI, continued pain in low back, exertional , does have axial symptoms and due to prior relief of axail low back pain from prior lumbar RFA I recommend repeating this. I ordered lumbar xray today that shows spacers at L3-4 and L4-5 are well seated, there is significant DDD from L2-S1. Recommend new lumbar mri to evaluate for adjacent segment progression. patient was initially doing well after mild and then vertiflex placement, she was previously discharged from PT due to cardiac issues but these have resolved after PPM placement. 10/19/2023 patient has continued low back pain this point recommend new lumbar MRI. There may be MRI conditional LAD with pacemaker so we will fax this to hospital system. Can continue tramadol, refill was sent in. I reviewed MRI from 2021 patient has disc degeneration from L3-S1 with associated Modic degenerative endplate changes, Intracept could be an additional option. Discussed option of spinal cord stimulator patient is not interested in this option. PLAN: 1. Interventions: - consider options vertiflex at adjacent segments, intracept 2. Physical therapy: Continue PT/OT 3. Medications: OARRS checked, UDS today- appropriate - tramadol 50 mg PO BID 4. Imaging: History of lumbar MRI from 2021 Reviewed lumbar x-ray, ordered new lumbar MRI faxed to [facility] due to pacemaker 5. Consults: Has followed with neurosurgery, not planning surgical intervention at this time, following with cardiology 6. RTC : Following MRI to discuss options 12/07/2023 Vertebrogenic low back pain (ICD-10 - M54.51) This is a 73 y.o. female with PMH of obesity, KATIE, COPD, CKD, SSS s/p PPM presenting with chronic low back and leg pain most consistent on history and physical exam with a diagnosis of lumboscaral spondylosis, intervertebral disc degeneration, lumbar spinal stenosis with neurogenic claudication 01/30/22 XR Lumbar Spine: Advancing multilevel osteoarthritis 10/10/21- lumbar MRI - L1-2 normal, L2-3 moderate CCS, mild left NFN, moderate disc bulge, L3-4 moderate CCS, mild bl NFN, mild disc bulge, mild facet OA, L4-5 moderate CCS, right foraminal narrowing, mild left foraminal narrowing, moderate facet OA, L5-S1 moderate left and mild right foraminal narrowing, mo CCS, mild bulge and facet OA 11/21/21 - interlaminar lumbar epidural at L4-5 over 80% relief of radicular symptoms, and 50% relief of low back pain > 3 months 02/18/22 - bilateral lumbar medial branch block L3-4 and L4-5 80% relief for the duration of the local 03/04/22 - bilateral lumbar medial branch block L4-5 and L5-S1 80% relief for the duration of the local 04/01/22 - Bilateral radiofrequency ablation L3-4 and L4-5 no significant relief symptoms related to spinal stenosis , believes she had 50% relief of axial low back pain for > 6 months 05/11/22 -MILD L3-L4, L4-L5 over 50% relief of back pain, over 80% relief of leg pain for 6-9 months 10/07/22 - Trans foraminal epidural steroid injection, right L4-5 Over 90% relief of radicular pain symptoms 11/30/22- Vertiflex at L3-4 and L4-5 significant improvement in pain with ambulation for 6 to 9 months 05/31/23 Bilateral S1 TFESI - 20% relief 09/21/23 -bilateral lumbar radiofrequency ablation L4-5, L5-S1 50% relief of axial pain 07/29/23 - In PT at [facility], limited relief from TFESI, continued pain in low back, exertional , does have axial symptoms and due to prior relief of axail low back pain from prior lumbar RFA I recommend repeating this. I ordered lumbar xray today that shows spacers at L3-4 and L4-5 are well seated, there is significant DDD from L2-S1. Recommend new lumbar mri to evaluate for adjacent segment progression. patient was initially doing well after mild and then vertiflex placement, she was previously discharged from PT due to cardiac issues but these have resolved after PPM placement. 10/19/2023 patient has continued low back pain this point recommend new lumbar MRI. There may be MRI conditional LAD with pacemaker so we will fax this to hospital system. Can continue tramadol, refill was sent in. I reviewed MRI from 2021 patient has disc degeneration from L3-S1 with associated Modic degenerative endplate changes, Intracept could be an additional option. Discussed option of spinal cord stimulator patient is not interested in this option. 11/23/23 lumbar mri - Multilevel mild to moderate degenerative changes of lumbar spine as described,fransisco ar to slightly progressed compared to prior. Findings most prominent L4-[id number] there is moderate severe right neural foraminal narrowing. 12/09/2023 reviewed new lumbar imaging with patient. She has disease progression at L3-4 and L4-5 slightly worsening central canal narrowing, she is less severe central canal narrowing L1-2 and L2-3. Patient did initially do well following mild for roughly 9 months and Vertiflex approximately the same period of time. Device spacers appear to be seated appropriately. I discussed options with the patient. I discussed option of referral to spine surgeon for decompression patient does not wish to proceed with this. I discussed other options with the patient she only has pain with ambulation has no pain with rest or sitting. She has no significant pain with forward flexion despite degenerative disc disease and Modic changes she is not a great Intracept candidate. I believe most of her pain symptoms are coming from spinal stenosis that has worsened when compared to prior studies. I discussed option of epidural injections. Will proceed with bilateral L4-5 transforaminal epidural [facility] [place]. Otherwise patient recommended to continue home exercise program, stretching, core strengthening, PT OT, advised to use assist device when ambulating and advise benefits of weight loss PLAN: 1. Interventions: Bilateral L4-5 transforaminal epidural in [facility] [place] Possible candidate for Vertiflex at adjacent segments, however I believe worsening of pain symptoms is due to disease progression at L3-4 and L4-5 levels rather than L1-2 and L2-3 Not a great Intracept candidate 2. Physical therapy: Continue PT/OT 3. Medications: OARRS checked, UDS today- appropriate Discontinue tramadol due to lack of benefit, could trial [place] versus Percocet 4. Imaging: History of lumbar MRI from 2021 Reviewed new lumbar imaging with patient as above 5. Consults: Has followed with neurosurgery, not planning surgical intervention at this time, following with cardiology 6. 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 female with PMH of obesity, KATIE, COPD, CKD, SSS s/p PPM presenting with chronic low back and leg pain most consistent on history and physical exam with a diagnosis of lumboscaral spondylosis, intervertebral disc degeneration, lumbar spinal stenosis with neurogenic claudication 01/30/22 XR Lumbar Spine: Advancing multilevel osteoarthritis 10/10/21- lumbar MRI - L1-2 normal, L2-3 moderate CCS, mild left NFN, moderate disc bulge, L3-4 moderate CCS, mild bl NFN, mild disc bulge, mild facet OA, L4-5 moderate CCS, right foraminal narrowing, mild left foraminal narrowing, moderate facet OA, L5-S1 moderate left and mild right foraminal narrowing, mo CCS, mild bulge and facet OA 11/21/21 - interlaminar lumbar epidural at L4-5 over 80% relief of radicular symptoms, and 50% relief of low back pain > 3 months 02/18/22 - bilateral lumbar medial branch block L3-4 and L4-5 80% relief for the duration of the local 03/04/22 - bilateral lumbar medial branch block L4-5 and L5-S1 80% relief for the duration of the local 04/01/22 - Bilateral radiofrequency ablation L3-4 and L4-5 no significant relief symptoms related to spinal stenosis , believes she had 50% relief of axial low back pain for > 6 months 05/11/22 -MILD L3-L4, L4-L5 over 50% relief of back pain, over 80% relief of leg pain 10/07/22 - Trans foraminal epidural steroid injection, right L4-5 Over 90% relief of radicular pain symptoms 11/30/22- Vertiflex at L3-4 and L4-5 significant improvement in pain with ambulation 05/31/23 Bilateral S1 TFESI - 20% relief 09/21/23 -bilateral lumbar radiofrequency ablation L4-5, L5-S1 07/29/23 - In PT at [facility], limited relief from TFESI, continued pain in low back, exertional , does have axial symptoms and due to prior relief of axail low back pain from prior lumbar RFA I recommend repeating this. I ordered lumbar xray today that shows spacers at L3-4 and L4-5 are well seated, there is significant DDD from L2-S1. Recommend new lumbar mri to evaluate for adjacent segment progression. patient was initially doing well after mild and then vertiflex placement, she was previously discharged from PT due to cardiac issues but these have resolved after PPM placement. 10/19/2023 patient has continued low back pain this point recommend new lumbar MRI. There may be MRI conditional LAD with pacemaker so we will fax this to hospital system. Can continue tramadol, refill was sent in. I reviewed MRI from 2021 patient has disc degeneration from L3-S1 with associated Modic degenerative endplate changes, Intracept could be an additional option. Discussed option of spinal cord stimulator patient is not interested in this option. PLAN: 1. Interventions: - consider options vertiflex at adjacent segments, intracept 2. Physical therapy: Continue PT/OT 3. Medications: OARRS checked, UDS today- appropriate - tramadol 50 mg PO BID 4. Imaging: History of lumbar MRI from 2021 Reviewed lumbar x-ray, ordered new lumbar MRI faxed to [facility] due to pacemaker 5. Consults: Has followed with neurosurgery, not planning surgical intervention at this time, following with cardiology 6. RTC : Following MRI to discuss options 11/23/2023 Encounter for screening for malignant neoplasm of respiratory organs (ICD-10 - Z12.2) Low-dose CT (LDCT) was recommended for lung cancer screening. The patient meets criteria including age 50-77, a smoking history of at least 20 pack-years, is currently smoking or has ceased smoking within the past 15 years, and has no signs or symptoms of lung cancer. Shared decision making performed with the patient. After LDCT has been completed, will review report and/or imaging and provide appropriate recommendations for the patient, including additional follow up if needed. Patient was counseled on smoking cessation/continu ed tobacco abstinence. 11/23/2023 Morbid obesity (ICD-10 - E66.01) Morbid obesity is inducing a restrictive pulmonary physiology. Weight loss highly recommended. 11/23/2023 Body mass index [BMI] 45.0-49.9, adult (ICD-10 - Z68.42) 11/23/2023 Other Plan Of Treatment Pending Test Test Name Order Date CMP (COMPLETE METABOLIC PANEL) 4 HEMOGLOBIN A1C (GLYCO) 04/21/2023 IRON, TOTAL 04/21/2023 LIPID PANEL (CHOL/TRIG/HDL/LDL) 04/21/19 24 CBC WITH DIFF 04/21/2023 VITAMIN D, 25 LEVEL (TOTAL) 04/21/2023 US Gallbladder 04/22/2023 MRI Lumbar Spine w/o contrast 07/29/2023 MRI Lumbar Spine w/o contrast 10/19/2023 FECAL OCCULT BLOOD 05/31/2024 Insulin Level 04/21/2023 COVID-19, Flu A+B IH 06/01/2024 CBC AUTO DIFF 05/31/2024 CULTURE WOUND 08/09/2024 GLYCOHEMOGLOBIN A1C 05/31/2024 LIPID PROFILE 05/31/2024 PROF 14(COMP METB) 05/31/2024 MRI BRAIN WO CON 08/03/2024 US KIDNEYS BLADDER 04/22/2023 THYROID PANEL (T4/TSH/FREE T3) 4 THYROID PANEL (T4/TSH/FREE T3) 5 THYROID PANEL (T4/TSH/FREE T3) 5 Next Appt Details Provider Name:Beatriz Campos , 08/15/2024 11:15:00 AM, [address] [place], [address], Provider Name:Amanda Kellogg, 09/26/2024 09:00:00 AM, [address] [place], [address], Insurance Providers Payer Name Payer Address Payer Phone Subscriber Number Group Number Insured Name Patient Relationship to Insured Coverage Start Date Coverage End Date [place] [address] [place] [address] [id number] [facility] Self - patient is the insured 4 [employer] MEDICARE SUPPLEMENT [address] [address] [place] [phone] [id number] [facility] Self - patient is the insured 8 Medications Administered Medication Instructions Date of Administration Dosage Notes Ceftriaxone 1 gram 08/08/2024 1 g Medical (General) History Medical History History ICD Code History of COVID-19 Z86.16 History of tobacco abuse Z87.891 COPD (chronic obstructive pulmonary dise ase) J44.9 Chronic kidney disease, stage 3 (moderat e) N18.3 Spinal stenosis M48.00 Pulmonary hypertension I27.20 Other secondary pulmonary hypertension I 27.29 Surgical History Surgery Date(Month/Year) Right Foot Surgery PPM Implant- Biotronik 01/12/2023 cataract-lens implants Back Surgery 05/11/2021 Colonoscopy & EGD - [place] 01/2023 hysterectomy Rt Myringotomy, t-tube placement, nasal endoscopy- Dr Mathews 07/06/2024 colonoscopy 07/19/24 Lumbar/Sacral Injections- Dr. Mensah 05/13
== END 2024-08-09 16:44 | disposition home or self-care (01) ==
LOC: LAB 16:43
PROVIDERS: PCP Family Medicine; Visit Provider Family Medicine
DX: L03.116 Cellulitis of left lower limb (principal)
CPT/HCPCS: 87070; 87075

== ENCOUNTER 2024-08-15 13:43 | Outpatient (OUT) | payer MEDICARE, SELFPAY ==
--- OUTSIDE RECORDS SUMMARY | 2024-08-09 09:40 | XMS_ITS | Encounter Summary ---
Author Organization [facility] Address [address] [facility] [place] [address] Care Team Providers Care Hemmer Chainstitch Name Role Phone Jeremiah Arvizu MD Primary Care Provider [phone] Reason for Referral * Imaging (Routine) - Authorized Specialty Diagnoses / Procedures Referred By Contac t Referred To Contact Radiology Diagnoses CSF otorrhea Procedures CT orbits/sella wo IV contrast Lakshmi Viramontes MD [address] [facility] [address] [place] [address] Phone: tel: fax: [facility] [address] [place] [address] Phone: tel: fax: Referral ID Status Reason Start Date Expiration Date V isits Requested Visits Authorized [id number] Authorized 08/09/2024 02/05/2025 1 1 Reason for Visit * Reason Comments Ear Problem S/p RT tube/Nasal EN DO [facility] 07/06/24 Encounter Details Date Type Department Care Team (Late st Contact Info) Description 08/09/2024 9:40 AM EDT Office Visit [facility] [address] [facility] [address] [place] [address] Lakshmi Viramontes MD [address] [facility] [address] [place], [place] [phone] ETD (Eustachian tube dysfunction), right (Primary Dx); [...] Active Ambulatory Problems Diagnosis Date Noted A-fib ([facility]) 04/21/2022 Chest pain 07/27/2016 CKD (chronic kidney disease) stage 4, GFR 15-29 ml/min ([facility]) 01/26/2024 Clinical trial exam 04/23/2022 Dyspnea 07/27/2016 Edema 07/27/2016 Essential hypertension ([facility]) 01/25/2020 Fatigue 07/27/2016 Hyperkalemia 01/26/2024 Lightheadedness 07/27/2016 Lower abdominal pain 01/30/2022 Nonsustained paroxysmal ventricular tachycardia ([facility]) 11/30/2022 Obstructive sleep apnea syndrome 10/02/2022 Other secondary pulmonary hypertension 12/15/2022 Secondary hyperparathyroidism (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) 04/29/2022 Aspirin long-term use 05/09/2024 CAD (coronary artery disease) ([facility]) 05/09/2024 Chronic obstructive pulmonary disease ([facility]) 05/09/2024 Former smoker 05/09/2024 History of colon polyps 05/09/2024 History of tobacco abuse 05/09/2024 Hypercholesterolemia ([facility]) 05/09/2024 Hypothyroidism ([facility]) 05/09/2024 Kidney stones 05/09/2024 Morbid obesity ([facility]) 05/09/2024 Multiple pulmonary nodules 05/09/2024 Stage 3a chronic kidney disease (HCC) ([facility]) 01/31/2024 Status post lumbar spine operation [...] EDT Office Visit [facility] [address] [facility] [address] [place] [address] Lakshmi Viramontes MD [address] [facility] [address] [place], [place] [id number] Scheduled Orders Name Type Priority Associated Diagnoses Orde r Schedule CT orbits/sella wo IV contrast Imaging Routine CSF otorrhea Expected: 08/09/2024, Expires: 08/09/2025 documented as of this encounter Visit Diagnoses Diagnosis ETD (Eustachian tube dysfunction), right- Primary CSF otorrhea Chronic myringitis of right ear documented in this encounter Care Teams Hemmer Chainstitch Relationship Specialty Start Date End Date Jeremiah Arvizu MD [address] [place] [address] PCP - General Family Medicine 08/02/24 documented as of this encounter
--- OUTSIDE RECORDS SUMMARY | 2024-08-15 13:46 | XMS_ITS | Encounter Summary ---
Author Organization The [facility] Address [address] [place] [address] Care Team Providers Care Executive Relations Specialist Name Role Phone Jeremiah Arvizu MD Primary Care Provider [phone] Encounter Details Date Type Department Care Team (Late st Contact Info) Description 08/04/2022 Community Orders [address] 1,2,3 [address] [place] [address] Jose Angel Catherine MD [address] [place] [address] Social History Tobacco Use Types Packs/Day [...] Info) Description 08/25/2024 12:00 PM EDT Appointment [facility] MR Imaging [address] [place] [address] [place] [phone] documented as of this encounter Visit Diagnoses Not on filedocumented in this encounter Care Teams Executive Relations Specialist Relationship Specialty Start Date End Date Jeremiah Arvizu MD [address] [facility] [place] [address] PCP - General 01/26/22 documented as of this encounter
--- OUTSIDE RECORDS SUMMARY | 2024-08-15 13:46 | XMS_ITS | Encounter Summary ---
Author Organization [facility] Address [address] [facility] [place] [address] Care Team Providers Care Licensed Psychologist Manager Name Role Phone Jeremiah Arvizu MD [...] EDT Office Visit [facility] [address] [facility] [address] [place] [address] Lakshmi Viramontes MD 112 [facility] 130 [place] [address] documented as of this encounter Visit Diagnoses Not on filedocumented in this encounter Care Teams Licensed Psychologist Manager Relationship Specialty Start Date End Date Jeremiah Arvizu MD [address] [place] [address] PCP - General Family Medicine 08/02/24 documented as of this encounter
--- OUTSIDE RECORDS SUMMARY | 2024-08-15 13:46 | XMS_ITS | Encounter Summary ---
Author Organization [facility] Address [address] [facility] [place] [address] Care Team Providers Care Machinist Helper Marine Name Role Phone Jeremiah Arvizu MD Primary Care Provider + Jeremiah Arvizu MD Primary Care Provider + Encounter Details Date Type Department Care Team ([facility] Contact Info) Description 06/23/2024 Orders Only [facility] [address] [facility] [address] [place] [address] Jeremiah Arvizu MD [address] [facility] [place] [address] Social History Tobacco Use Types Packs/Day Years [...] EDT Office Visit [facility] [address] [facility] [address] [place] [address] Lakshmi Viramontes MD [address] [facility] 130 [place] [address] documented as of this encounter Procedures Procedure Name Priority Date/Time Associated Diagnosis Comments SCANNED LABS Routine 06/20/2024 8:24 AM EDT documented in this encounter Results * SCANNED LABS (06/20/2024 8:24 AM EDT) us Jeremiah Arvizu MD LAB CHG PERFORMABLES Final Resu lt documented in this encounter Visit Diagnoses Not on filedocumented in this encounter Care Teams Machinist Helper Marine Relationship Specialty Start Date End Date Jeremiah Arvizu MD PCP - General Family Medicine 05/09/24 08/01/24 [place] [address] [place] [address] PCP - General Family Medicine 08/02/24 documented as of this encounter
--- OUTSIDE RECORDS SUMMARY | 2024-08-15 13:46 | XMS_ITS | Clinical Summary ---
Author Organization [facility] Address [address] [id number] Care Team Providers Care Binitrotoluene Operator Name Role Phone Jeremiah Arvizu MD Primary [...] A AND B GENERIC PLAN Care Teams Binitrotoluene Operator Relationship Specialty Start Date End Date Jeremiah Arvizu MD PCP - General Family Medicine 06/26/16
--- OUTSIDE RECORDS SUMMARY | 2024-08-15 13:46 | XMS_ITS | Encounter Summary ---
Author Organization [facility] Address [address] [place] [address] Care Team Providers Care Head Grower Name Role Phone Jeremiah Arvizu MD Primary Care Provider [phone] Encounter Details Date Type Department Care Team (Late st Contact Info) Description 08/04/2022 Community Orders [facility]ISA [facility] 1,2,[address] [place] [address] Linn Álvarez PA [address] [place], [place] [phone] Social History Tobacco Use Types Packs/Day Years [...] Description 08/25/2024 12:00 PM EDT Appointment [facility] Ortho MR Imaging [address] [place] [address] [place] [address] documented as of this encounter Visit Diagnoses Not on filedocumented in this encounter Care Teams Head Grower Relationship Specialty Start Date End Date Jeremiah Arvizu MD [address] [facility] [place] [phone] PCP - General 01/26/22 documented as of this encounter
--- OUTSIDE RECORDS SUMMARY | 2024-08-15 13:46 | XMS_ITS | Encounter Summary ---
Author Organization [facility] Address [address] [place] [address] Care Team Providers Care Chair Spring Assembler Name Role Phone Jeremiah Arvizu MD Primary Care Provider [phone] Jeremiah Arvizu MD Primary Care Provider +-[phone] Encounter Details Date Type Department Care Team (Late st Contact Info) Description 05/05/2024 Orders Only [facility] [address] [facility] [address] [place] [address] Hector Ellison MD [address] [place] [address] Social History Tobacco Use Types [...] Visit [facility] [address] [facility] [address] [place] [address] Lakshmi Viramontes MD [address] [facility] 130 [place] [address] documented as of this encounter Procedures Procedure Name Priority Date/Time Associated Diagnosis Comments AUDIOMETRY WITH TYMPANOMETRY Routine 05/04/2024 2:06 PM EST documented in this encounter Results * Audiometry with tympanometry (05/04/2024 2:06 PM EST) us Hector Ellison MD AUDIOLOGY SERVICES ORDER HALEY Final Result documented in this encounter Visit Diagnoses Not on filedocumented in this encounter Care Teams Chair Spring Assembler Relationship Specialty Start Date End Date Jeremiah Arvizu MD PCP - General Family Medicine 05/09/24 08/01/24 Jeremiah Arvizu MD [address] [place] [address] PCP - General Family Medicine 08/02/24 documented as of this encounter
--- OUTSIDE RECORDS SUMMARY | 2024-08-15 13:46 | XMS_ITS | Encounter Summary ---
Author Organization [facility] Address [address] [facility] [place] [address] Care Team Providers Care Vp Emerging Media Name Role Phone Jeremiah Arvizu MD Primary Care Provider [phone] Encounter Details Date Type Department Care Team ([facility] Contact Info) Description 08/09/2024 Bamboo flowsheet [facility] 112 [facility] 130 [place] [phone] Lakshmi Viramontes MD 112 [facility] 130 [place], [place] [phone] Social History Tobacco Use Types Packs/Day Years [...] Upcoming Encounters Date Type Department Care Team ([facility] Contact Info) Description 08/30/2024 9:50 AM EDT Office Visit [facility] 112 [facility] 130 [place] [address] Lakshmi Viramontes MD 112 [facility] [address] [place], [place] [phone] documented as of this encounter Visit Diagnoses Not on filedocumented in this encounter Care Teams Vp Emerging Media Relationship Specialty Start Date End Date Jeremiah Arvizu MD [address] [facility] [place] [address] PCP - General Family Medicine 08/02/24 documented as of this encounter
--- OUTSIDE RECORDS SUMMARY | 2024-08-15 13:46 | XMS_ITS | Referral Summary ---
Author Organization [facility] Address [address] [place] [address] Care Team Providers Care Public Improvement Inspector Name Role Phone Jeremiah Arvizu MD Primary Care Provider [phone] Allergies Active Allergy Reactions Criticality Noted Date [...] 23 Overview (10/02/2022): SOBIA=17.7 events/hour; Pranav SaO2=76%; Pwcdjp=386.0 lbs; BMI=52.7 kg/m2, Home Sleep Apnea Testing on 09/25/2022 at [facility] [place] (ventricular tachycardia) 04/29/2022 Overview (04/29/2022): Added automatically from request for surgery [id number] Clinical trial exam 04/23/2022 Overview (04/23/2022): Added automatically from request for surgery [id number] A-fib 04/21/2022 Spinal stenosis of lumbar re [...] place to sleep or slept in a fdc (including now)? No 01/05/2023 Hunger Vital Sign Answer Date Recorded Within the past 12 months, y ou worried that your food would run out before you got the money to buy more. Never true 01/06/20 Ran Out of Food in the Last [...] Info) Description 08/25/2024 12:00 PM EDT Appointment [facility] MR Imaging [address] [place] [address] [place] [address] Medical Devices Implanted Type Area Thermodynamics Engineer Device Identifier Shelf Expiration Date Model / Serial / Lot Lead,Solia,S 60, - [id number] - [id number] Implanted:Qty : 1 on 01/12/2023 by Constantino Bullock MD at [facility] Lead Biotronik [id number] 12/12/2024 [id number] / [id number] / Lead,Solia,S 53, - [id number] - [id number] Implanted:Qty : 1 on 01/12/2023 by Constantino Bullock MD at [facility] Lead [employer] [id number] 12/12/2024 [id number] / [id number] 64 / Pacer [address] -T - [id number] - [id number] Implanted:Qty : 1 on 01/12/2023 by Constantino Bullock MD at [facility] Pacemaker Biotronik [id number] 06/12/2024 [id number] / [id number] 87 / Superion Ids - 10mm Implanted:Qty : 1 on 11/30/2022 by Jose Angel Mensah MD at [facility] N/A: Spine Lumbar [email or web address] [id number] 08/24/2026 101-9810 / / [id number] Superion Ids - 12mm Implanted:Qty : 1 on 11/30/2022 by Jose Angel Mensah MD at [facility] N/A: Spine Lumbar [email or web address] [id number] 05/27/2027 101-9812 / / [id number] Procedures Procedure Name Priority Date/Time Associated Diagnosis [...] Sedation: MAC Attending Physician: Dr. Dario Calderon Gis Analyst Developer: Rachel Prado, Fellow Procedure Details Informed consent [...] Recently Relevant to Health Maintenance Care Teams Public Improvement Inspector Relationship Specialty Start Date End Date Jeremiah Arvizu MD [address] [facility] [place] [address] PCP - General 01/26/22
--- OUTSIDE RECORDS SUMMARY | 2024-08-15 13:46 | XMS_ITS | Clinical Summary ---
Author Organization [facility] Address [address] [place] [address] Care Team Providers Care Payroll And Benefits Analyst Name Role Phone Jeremiah Arvizu MD Primary Care Provider [phone] Allergies Active Allergy Reactions Criticality Noted Date [...] 23 Overview (10/02/2022): SOBIA=17.7 events/hour; Pranav SaO2=76%; Gvlduw=134.0 lbs; BMI=52.7 kg/m2, Home Sleep Apnea Testing on 09/25/2022 at [facility] [place] (ventricular tachycardia) 04/29/2022 Overview (04/29/2022): Added automatically from request for surgery [id number] Clinical trial exam 04/23/2022 Overview (04/23/2022): Added automatically from request for surgery [id number] A-fib 04/21/2022 Spinal stenosis of lumbar re gion with neurogenic claudication 01/30/2022 Lower abdominal pain 01/30/2022 Spondylosis of 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 or radiculopathy 01/30/2022 Essential hypertension 01/25/2020 Chest pain 07/27/2016 Dyspnea 07/27/2016 Edema 07/27/2016 Fatigue 07/27/2016 Lightheadedness 07/27/2016 Immunizations Name Administration Dates Next Due Pfizer SARS-CoV-2 Vaccination 01/04/2021, 021 Unspecified Sars-Cov-2 Vaccination 01/04/2021, Family History Medical History Relation Name Comments rita neoplastic disease Daughter Hyperlipidemia Father Hypertension Father [...] place to sleep or slept in a residential (including now)? No 01/05/2023 Hunger Vital Sign [...] Info) Description 08/25/2024 12:00 PM EDT Appointment [facility] [address] [place] [address] [place] [address] Health Maintenance Due Date Last Done Comments [...] this topic Medical Devices Implanted Type Area Content Development Specialist Device Identifier Shelf Expiration Date Model / Serial / Lot Lead,NitoS 60, - [id number] - [id number] Implanted:Qty : 1 on 01/12/2023 by Constantino Bullock MD at [facility] Lead [employer] [id number] 12/12/2024 [id number] / [id number] / LeadNitoS 53, - [id number] - [id number] Implanted:Qty : 1 on 01/12/2023 by Constantino Bullock MD at [facility] Lead [employer] [id number] 12/12/2024 [id number] / [id number] / Pacer Edora,Dual,Dr West - [id number] - [id number] Implanted:Qty : 1 on 01/12/2023 by Constantino Bullock MD at [facility] Pacemaker [employer]otronik [id number] 06/12/2024 [id number] / [id number] 87 / Superion Ids - 10mm Implanted:Qty : 1 on 11/30/2022 by Jose Angel Mensah MD at [facility] N/A: Spine Lumbar [employer] [id number] 08/24/2026 101-9810 / / [id number] Superion Ids - 12mm Implanted:Qty : 1 on 11/30/2022 by Jose Angel Mensah MD at [facility] N/A: Spine Lumbar [employer] [id number] 05/27/2027 101-9812 / / [id number] Procedures Procedure Name Priority Date/Time Associated Diagnosis [...] Sedation: MAC Attending Physician: Dr. Dario Calderon Ultrasound Spec: Rachel Prado, Fellow Procedure Details Informed consent [...] Recently Relevant to Health Maintenance Care Teams Payroll And Benefits Analyst Relationship Specialty Start Date End Date Jeremiah Arvizu MD [address] [place] [address] PCP - General 01/26/22
--- OUTSIDE RECORDS SUMMARY | 2024-08-15 13:46 | XMS_ITS | Clinical Summary ---
Author Organization [facility] Address [address] [place] [address] Care Team Providers Care Shelter Supervisor Name Role Phone Jeremiah Arvizu MD Primary [...] 10/02/2022 Overview (05/05/2024): SOBIA=17.7 events/hour; Pranav SaO2=76%; Wzhcwi=446.0 lbs; BMI=52.7 kg/m2, Home Sleep Apnea Testing on 09/25/2022 at [facility] [place] (ventricular tachycardia) 04/29/2022 Overview (05/05/2024): Added automatically from request for surgery [id number] Clinical trial exam 04/23/2022 Overview (05/05/2024): Added automatically from request for surgery [id number] A-fib 04/21/2022 Lower abdominal pain 01/30/2022 Spinal stenosis of lumbar re gion with neurogenic claudication 01/30/2022 Spondylosis of 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 or radiculopathy 01/30/2022 Essential hypertension 01/25/2020 Chest pain 07/27/2016 Dyspnea 07/27/2016 Edema 07/27/2016 Fatigue 07/27/2016 Lightheadedness 07/27/2016 Encounters Date Type Department Care Team Description 08/09/2024 9:40 AM EDT Office Visit [facility] [address] [facility] [address] [place] [address] Lakshmi Viramontes MD ETD (Eustachian tube dysfunction), right (Primary Dx); CSF otorrhea; Chronic myringitis of right ear 08/09/2024 Bamboo flowsheet [facility] [address] [facility] [address] [place] [address] Lakshmi Viramontes MD 08/09/2024 Travel 06/26/2024 Clinisync Result Encounter [facility] Department Unsolicited Lakshmi Viramontes MD 06/23/2024 Orders Only [facility] [address] [facility] [address] [place] [address] Jeremiah Arvizu MD 06/20/2024 9:40 AM EDT Office Visit [facility] [address] [facility] [address] [place] [address] Lakshmi Viramontes MD OME (otitis media with effusion), right (Primary Dx); ETD (Eustachian tube dysfunction), right; 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 06/20/2024 Bamboo flowsheet [facility] [address] [facility] [address] [place] [address] Lakshmi Viramontes MD 06/20/2024 Travel from Last [...] Office Visit [facility] [address] [facility] [address] [place] [address] Lakshmi Viramontes MD [address] [facility] [address] [place] [address] Health Maintenance Due Date Last Done Comments CT Colonography 1950 FIT-DNA 1950 FIT 1950 FOBT 1950 Sigmoidoscopy 1950 Mammogram 1991 Pneumococcal Vaccine: 65+ Ye ars (1 of 1 - PCV) 2001 Influenza Vaccine (Season Ended) 2024 Colonoscopy 02/09/2033 02/09/2023, 01/14, 07/06/2018 Colorectal Cancer Screening 02/09/2033 Medical Devices Implanted Type Area Clockmaker Apprentice Device Identifier Shelf Expiration Date Model / [...] MD [facility] Final Result Performing Organization Address City/[facility]/ZIP Co de Phone Number [facility] * [facility] (06/26/2024 9:40 AM EDT) PARTIAL THROMBOPLASTIN TIME 29.3 22.3 - 36.2 sec [facility] 06/26/2024 9:40 AM EDT 06/26/2024 9:43 AM EDT Narrative [facility] - 06/26/2024 10:23 AM EDT Lakshmi Viramontes MD CLINISYNC Final Result Performing Organization Address [facility] Co de Phone Number [facility] * [facility] (06/20/2024 8:24 AM EDT) Jeremiah Arvizu MD LAB CHG PERFORMABLES Final Resu lt from Last 3 Months Insurance MEDICARE [facility] [employer] INSURANCE [facility] Care Teams Shelter Supervisor Relationship Specialty Start Date End Date Jeremiah Arvizu MD [address] [place] [address] PCP - General Family Medicine 08/02/24
--- OUTSIDE RECORDS SUMMARY | 2024-08-15 13:46 | XMS_ITS | Clinical Summary ---
Author Organization [facility] Address [address] [place] [address] Phone Care Team Providers Care Bakery Machine Mechanic Name Role Phone Unavailable Primary Care Provider [...]
--- OUTSIDE RECORDS SUMMARY | 2024-08-15 13:46 | XMS_ITS | Encounter Summary ---
Author Organization [facility] Address [address] [place] [address] Care Team Providers Care Gastroenterology Technician Name Role Phone Jeremiah Arvizu MD Primary Care Provider [phone] Encounter Details Date Type Department Care Team (Late Contact Info) Description 02/24/2022 Orders Only [facility] [address] [place] [id number] Karolyn Werner MA Essential hypertension Social History [...] Info) Description 08/25/2024 12:00 PM EDT Appointment [facility] [address] [place] [address] [place] [phone] documented as of this encounter Visit Diagnoses Diagnosis Essential hypertension Unspecified essential hypertension documented in this encounter Care Teams Gastroenterology Technician Relationship Specialty Start Date End Date Jeremiah Arvizu MD [address] [facility] [address] [address] PCP - General 01/26/22 documented as of this encounter
--- NOTE | 2024-08-15 13:50 | CT_ITS ---
[address] [address] Patient Name: JUSTIN COLLINS MRN: [id number] date: 1950 Sex: F Assigned Patient Location: CT Current Patient Location: CT Accession/Order Number: [id number] Exam Date: 08/15/2024 14:47 Report Date: 08/15/2024 14:51 At the request of: JOHN MATHEWS MD Procedure: CT int auditory canals w/o con CT int auditory canals w/o con 08/15/2024 2:16 PM SIGNS AND SYMPTOMS: ^Cerebral Spinal Fluid Otorrhea COMPARISON: None. TECHNIQUE: Using a multi-detector scanner, 0.5 x 0.3 mm axial scans of the temporal bone were acquired using a high-resolution bone technique. The scans were retrospectively targeted for right and left side, and subsequently reconstructed in the coronal and Sagittal plane, again targeting the right and left sides individually, as well as the entire skull base. CT was performed with one or more of the following dose reduction techniques: Automated exposure control, adjustment of the mA and/or kV according to patient size, or use of iterative reconstruction technique. FINDINGS: Right: The middle ear cleft is within normal limits. and the ossicles are within normal limits. The cochlea, vestibule, vestibular and cochlear aqueduct are within normal limits. The facial nerve canal is within normal limits. The semicircular canals are within normal limits. The internal auditory canal is within normal limits. The external auditory canal is within normal limits. There is a small right mastoid effusion. There is a tympanostomy on the right. The carotid canal and jugular foramen are within normal limits. The temporomandibular joint is within normal limits. Left: The middle ear cleft is within normal limits and the ossicles are within normal limits. The cochlea, vestibule, vestibular and cochlear aqueduct are within normal limits. The facial nerve canal is within normal limits. The semicircular canals are within normal limits.. The internal auditory canal is within normal limits.. The external auditory canal and mastoid air cells are within normal limits. The carotid canal and jugular foramen are within normal limits. The temporomandibular joint is intact. CT/CT int auditory canals w/o con IMPRESSION: There is a small right mastoid effusion. A tympanostomy tube is present on the right. The temporal bone structures are otherwise within normal limits. The tegmen is intact bilaterally. Impression dictated by: Victor Manuel Gutierrez M.D. 08/15/2024 2:51 PM Dictation Location: [place] [address] Electronically authenticated by: [id number] Y Date: 08/15/2024 14:51
== END 2024-08-15 13:44 | disposition home or self-care (01) ==
LOC: CT 13:43
PROVIDERS: PCP Family Medicine; Visit Provider Otolaryngology
DX: G96.01 Cranial cerebrospinal fluid leak, spontaneous (principal); H74.8X1 Other specified disorders of right middle ear and mastoid
CPT/HCPCS: 70480

== ENCOUNTER 2024-08-15 13:44 | Outpatient (OUT) | payer MEDICARE, SELFPAY ==
--- NOTE | 2024-08-15 13:53 | CT_ITS ---
The [address] [address] Patient Name: JUSTIN COLLINS MRN: [id number] date: 1950 Sex: F Assigned Patient Location: CT Current Patient Location: CT Accession/Order Number: [id number] Exam Date: 08/15/2024 15:40 Report Date: 08/15/2024 15:45 At the request of: DEBBIE BHATIA MD Procedure: CT lower leg LT wo con CT left lower leg without contrast TECHNIQUE: The CT exam was performed using one or more the following dose reduction techniques: Automated exposure control, adjustment of the MA and/or Kv according to patient size, or use of the iterative reconstruction technique. COMPARISON: None HISTORY: Acute hematoma involving the left dewey. Injury one and half weeks ago. History of recent lancing of area. Continued pain and swelling. Skin marker identifies region of soft tissue swelling anteriorly. Skin thickening identified. No drainable fluid collection identified. Subcutaneous fatty stranding present. No subcutaneous air. No radiodense foreign body. Benign soft tissue calcifications. No intramuscular hematoma or fluid collection. Intact bony structures. Moderate knee degeneration. CT/CT lower leg LT wo con IMPRESSION: Focal soft tissue swelling and inflammatory changes in the anterior portion of the left lower leg which was identified with a BB marker correspond with region of palpable abnormality. No drainable fluid collection seen. Diffuse skin thickening and subcutaneous edematous changes. No acute intramuscular hematoma. No acute bony findings. Impression dictated by: Sacha Ashford M.D. 08/15/2024 3:45 PM Dictation Location: [email or web address] Electronically authenticated by: [id number] Y Date: 08/15/2024 15:45
== END 2024-08-15 13:45 | disposition home or self-care (01) ==
LOC: CT 13:44
PROVIDERS: PCP Family Medicine; Visit Provider Family Medicine
DX: S80.12XA Contusion of left lower leg, initial encounter (principal); R60.0 Localized edema; G96.01 Cranial cerebrospinal fluid leak, spontaneous; H74.8X1 Other specified disorders of right middle ear and mastoid
CPT/HCPCS: 70480; 73700

== ENCOUNTER 2024-08-22 10:26 | Outpatient (RCR) | payer MEDICARE, SELFPAY | END 2024-08-23 08:08 | disposition home or self-care (01) | LOC: HEMC 10:26 | PROVIDERS: PCP Family Medicine; Visit Provider Internal Medicine Hematology & Oncology | DX: D64.9 Anemia, unspecified (principal); N18.30 Chronic kidney disease, stage 3 unspecified; D63.1 Anemia in chronic kidney disease | CPT/HCPCS: G0463 ==

== ENCOUNTER 2024-09-04 11:27 | Outpatient (REF) | payer MEDICARE, SELFPAY ==
--- OUTSIDE RECORDS SUMMARY | 2024-08-25 10:36 | XMS_ITS | Encounter Summary ---
Author Organization [facility] Address [address] [place] [address] Care Team Providers Care Blueprint Engineer Name Role Phone Jeremiah Arvizu MD Primary Care Provider [phone] Reason for Referral * Imaging (Routine) - Authorized Specialty Diagnoses / Procedures Referred By Contac t Referred To Contact Radiology Diagnoses Migraine, unspecified, not intractable, without status migrainosus Procedures MR brain wo contrast Jeremiah Arvizu MD [address] [place] [address] Phone: tel: fax: [facility] MR Imaging [address] [place] [address] Phone: tel: fax: Referral ID Status Reason Start Date Expiration Date V isits Requested Visits Authorized [id number] Authorized 08/04/2024 08/04/2025 1 1 Reason for Visit * Imaging (Routine) - Authorized Specialty Diagnoses / Procedures Referred By Contac t Referred To Contact Radiology Diagnoses Migraine, unspecified, not intractable, without status migrainosus Procedures [place] [address] [place] [address] Phone: tel: fax: [facility] MR Imaging [address] [place] [address] Phone: tel: fax: Referral ID Status Reason Start Date Expiration Date V isits Requested Visits Authorized [id number] Authorized 08/04/2024 08/04/2025 1 1 Encounter Details Date Type Department Care Team (Latest Contact Info) Description 08/25/2024 10:36 AM EDT - 08/25/2024 11:59 PM EDT Hospital Encounter [facility] MR Imaging [address] [place] [address] Migraine, unspecified, not intractable, without status migrainosus Discharge Disposition: Home or Self Care () Social History Tobacco Use Types Packs/Day Years Used Date Smoking Tobacco: Former Cigarettes Q uit: 2007 Passive Smoke Exposure: Never Smokeless Tobacco: Never Alcohol Use Standard Drinks/Week Comments Yes 0 [...] place to sleep or slept in a custodial (including now)? No 01/05/2023 Hunger Vital Sign Answer Date Recorded Within the past 12 months, y ou worried that your food would run out before you got the money to buy more. Never true 01/06/20 Ran Out of Food in the Last Year Not on file 01/05/2023 Comments No Sex and Gender Information Value Date Recorded Sex Assigned at Not on file Legal Sex Female 9:47 PM EDT Gender Identity Not on file Sexual Orientation Not on file documented as of this encounter Last Filed Vital Signs Vital Sign Reading Time Taken Comments Blood Pressure 145/75 08/25/2024 12:45 PM EDT Pulse 91 08/25/2024 12:45 PM EDT Temperature - - Respiratory Rate 16 08/25/2024 12:45 PM EDT Oxygen Saturation 97% 08/25/2024 12:45 PM EDT Inhaled Oxygen Concentration - - Weight - - Height - - Body Mass Index - - documented in this encounter Medications at Time of Discharge albuterol 90 mcg/actuation inhaler Inhale 2 puffs every 4 (four) hours if needed for shortness of breath. aspirin 81 mg EC tablet Take 81 mg by mouth in the morning. hydrALAZINE (Apresoline) 100 mg tablet Take 100 mg by mouth in the morning, at noon, and at bedtime. levothyroxine (Synthroid, Levoxyl) 100 mcg tablet Take 100 mcg by mouth before breakfast. liothyronine (Cytomel) 25 mcg tablet Take 1.5 tablets by mouth in the morning. lisinopril 10 mg tabletIndications :Essential hypertension TAKE 1 TABLET BY MOUTH EVERY DAY IN THE MORNING 90 tablet 3 03/02/2024 lovastatin (Mevacor) 20 mg tablet Take 20 mg by mouth in the morning. methylcellulose, laxative, (CitruceL Sugar Free) powderIndications :Loose stools Mix 1 tablespoon in 8 oz (240 mL) of cold water. Take by mouth once daily. Increase frequency as needed up to 3 times daily. Start with a low dose and slowly increase to prevent worse bloating. 479 g 3 02/16/2023 pantoprazole (ProtoNix) 40 mg EC tabletIndications :Duodenitis TAKE 1 TABLET BY MOUTH ONCE EVERYDAY BEFORE BREAKFAST *DO NOT CRUSH/CHEW/SPLIT* 90 tablet 1 03/04/2023 revefenacin (Yupelri) 175 mcg/3 mL nebulizer solution Take 175 mcg by nebulization if needed each day. traMADol (Ultram) 50 mg tablet TAKE 1 TABLET BY MOUTH TWICE A DAY NEEDED FOR 30 DAYS 08/09/2023 documented as of this encounter Plan of Treatment Upcoming Encounters Date Type Department Care Team (Late st Contact Info) Description 10/24/2024 10:30 AM EDT Ancillary Procedure [facility] [address] [place] [address] 10/24/2024 11:15 AM EDT Office Visit [facility] [address] [place] [facility] [place] [address] Irvin Posada MD [address] [place] [address] documented as of this encounter Procedures Procedure Name Priority Date/Time Associated Diagnosis Comments MR BRAIN WO CONTRAST Routine 08/25/2024 12:50 PM EDT Migraine, unspecified, not intractable, without status migrainosus documented in this encounter Results * MR brain wo contrast (08/25/2024 12:50 PM EDT) Anatomical Region Laterality Modality Brain Magnetic Resonan ce 08/28/2024 8:33 AM EDT Impressions 08/28/2024 8:36 AM EDT * Brain MR shows no acute findings. Mild brain atrophy and ischemic white matter disease * Dense consolidation right mastoid sinus Electronically signed: Estrada Raman. Narrative 08/28/2024 8:36 AM EDT History: possible TIA Procedure: Multiplanar, multisequence imaging performed through the brain, without IV contrast. Findings: There are no intracranial masses, mass-effect, extra-axial fluid collection, or hydrocephalus. Sensitivity for acute hemorrhage limited on MRI, but grossly no acute hemorrhage identified. Midline sagittal structures are negative including pituitary fossa, infundibulum, optic chiasm, corpus callosum, brainstem, fourth ventricle, cerebellum, and cranio-cervical junction. There are appropriate flow voids in large cerebral vessels on T2 weighted imaging. Diffusion weighted images show no evidence for acute infarct. Mild brain atrophy and ischemic white matter disease Dense consolidation right mastoid sinus Procedure Note Estrada Raman MD - 08/28/2024 History: possible TIA Procedure: Multiplanar, multisequence imaging performed through thebrain, without IV contrast. Findings: There are no intracranial masses, mass-effect, extra-axialfluid collection, or hydrocephalus. Sensitivity for acute hemorrhage limited onMRI, but grossly no acute hemorrhage identified. Midline sagittal structures are negative including pituitary fossa, infundibulum, optic chiasm, corpus callosum, brainstem, fourthventricle, cerebellum, and cranio-cervical junction. There are appropriate flow voids in large cerebral vessels on [id number] imaging. Diffusion weighted images show no evidence for acute infarct. Mild brain atrophy and ischemic white matter disease Dense consolidation right mastoid sinus IMPRESSION: *Brain MR shows no acute findings. Mild brain atrophy and ischemicwhite matter disease *Dense consolidation right mastoid sinus Electronically signed: Estrada Raman. Jeremiah Arvizu MD IMG MRI PROCEDURES Final Result documented in this encounter Visit Diagnoses Diagnosis Migraine, unspecified, not intractable, without status migrainosus documented in this encounter Care Teams Blueprint Engineer Relationship Specialty Start Date End Date Jeremiah Arvizu MD [address] [facility] [address] [address] PCP - General 01/26/22 documented as of this encounter
--- OUTSIDE RECORDS SUMMARY | 2024-09-04 11:31 | XMS_ITS | Encounter Summary ---
Author Organization [facility] Address [address] [place] [address] Care Team Providers Care Char Conveyor Tender Name Role Phone Jeremiah Arvizu MD Primary Care Provider [phone] Encounter Details Date Type Department Care Team (Late st Contact Info) Description 08/04/2022 Community Orders [facility] [address] 1,2,3 [address] [place] [address] Jose Angel Catherine MD [address] [place] [address] Social History Tobacco Use Types Packs/Day Years Used Date Smoking Tobacco: Former Cigarettes Q uit: 2008 Passive Smoke Exposure: Never Smokeless Tobacco: Never Alcohol Use Standard Drinks/Week Comments Not Currently 0 (1 standard drink = 0.6 oz pur e alcohol) PHQ-2 Answer Date Recorded Patient Health Questionnaire-2 Score 0 07/28/2022 Comments No Sex and Gender Information Value Date Recorded Sex Assigned at Not on file Legal Sex Female 9:47 PM EDT Gender Identity Not on file Sexual Orientation Not on file COVID-19 Exposure Response Date Recorded In the last 10 days, have yo u been in contact with someone who was confirmed or suspected to have Coronavirus/COVID-19? No / Unsure 08/04/2022 10:31 AM EDT documented as of this encounter Plan of Treatment Upcoming Encounters Date Type Department Care Team (Late st Contact Info) Description 10/24/2024 10:30 AM EDT Ancillary Procedure [facility] [address] [place] [address] 10/24/2024 11:15 AM EDT Office Visit [facility] [address] [place] [address] Irvin Posada MD [address] [place] [address] documented as of this encounter Visit Diagnoses Not on filedocumented in this encounter Care Teams Char Conveyor Tender Relationship Specialty Start Date End Date Jeremiah Arvizu MD [address] [facility] [address] [address] PCP - General 01/26/22 documented as of this encounter
--- OUTSIDE RECORDS SUMMARY | 2024-09-04 11:31 | XMS_ITS | Clinical Summary ---
Author Organization [facility] Address [address] [id number] Care Team Providers Care Die Stamping Press Operator Name Role Phone Jeremiah Arvizu MD [...] A AND B GENERIC PLAN Care Teams Die Stamping Press Operator Relationship Specialty Start Date End Date Jeremiah Arvizu MD PCP - General Family Medicine 06/26/16
--- OUTSIDE RECORDS SUMMARY | 2024-09-04 11:31 | XMS_ITS | Encounter Summary ---
Author Organization The [facility] Address [address] [place] [address] Care Team Providers Care Matcher Offbearer Name Role Phone Jeremiah Arvizu MD Primary Care Provider [phone] Encounter Details Date Type Department Care Team (Late st Contact Info) Description 08/11/2024 Orders Only [facility] [address] [place] [address] Tian Hernández MD [address] [place] [address] Social History Tobacco Use Types Packs/Day Years [...] Description 10/24/2024 10:30 AM EDT Ancillary Procedure [facility] [address] [place] [address] 10/24/2024 11:15 AM EDT Office Visit [facility] [address] [place] [address] Irvin Posada MD [address] [place] [address] documented as of this encounter Procedures Procedure Name Priority Date/Time Associated Diagnosis Comments CARDIAC DEVICE CHECK - REMOTE - PACEMAKER Routine 08/11/2024 12:00 AM EDT documented in this encounter Results * Cardiac device check - Remote pacemaker (08/11/2024 12:00 AM EDT) Anatomical Region Laterality Modality Other 08/11/2024 Tian Hernández MD CV IMPLANTABLE CARDIAC DEVICE PROCEDURES Final Result documented in this encounter Visit Diagnoses Not on filedocumented in this encounter Care Teams Matcher Offbearer Relationship Specialty Start Date End Date Jeremiah Arvizu MD [address] [facility] [place] [address] [address] PCP - General 01/26/22 documented as of this encounter
--- OUTSIDE RECORDS SUMMARY | 2024-09-04 11:31 | XMS_ITS | Encounter Summary ---
Author Organization [facility] Address [address] [place] [address] Care Team Providers Care Satellite Specialist Name Role Phone Jeremiah Arvizu MD Primary Care Provider [phone] Encounter Details Date Type Department Care Team (Late st Contact Info) Description 08/04/2022 Community Orders [facility] 1,2,3 [facility] [place], [place] [id number] Linn Álvarez PA [address] [place] [phone] Social History Tobacco Use Types Packs/Day Years [...] Description 10/24/2024 10:30 AM EDT Ancillary Procedure [facility] [address] [place] [address] 10/24/2024 11:15 AM EDT Office Visit [facility] [address] [place] [address] Irvin Posada MD [address] [place] [address] documented as of this encounter Visit Diagnoses Not on filedocumented in this encounter Care Teams Satellite Specialist Relationship Specialty Start Date End Date Jeremiah Arvizu MD [address] [facility] [address] [address] PCP - General 01/26/22 documented as of this encounter
--- OUTSIDE RECORDS SUMMARY | 2024-09-04 11:31 | XMS_ITS | Clinical Summary ---
Author Organization [facility] Address [address] [place] [address] Care Team Providers Care Impregnator Helper Name Role Phone Jeremiah Arvizu MD Primary Care Provider [phone] Allergies Active Allergy Reactions Criticality Noted Date Comments Penicillins Other Medium 11/28/2021 Yeast infection Medications hydrALAZINE (Apresoline) 100 mg tablet Take 100 [...] of breath. Active carvedilol (Coreg) 12.5 mg tabletIndication s:Essential hypertension Take 1 tablet (12.5 mg) by mouth in the morning and at bedtime. 60 tablet 2 Active bumetanide (Bumex) 1 mg tabletIndication s:Resistant hypertension,Derrell ign hypertensive heart and CKD, stage 3 (GFR 30-59), w CHF (CMS/HCC) Take 1 tablet (1 mg) by mouth in the morning. 90 tablet 3 2 Active revefenacin (Yupelri) 175 mcg/3 mL nebulizer solution Take 175 mcg by nebulization if needed each day. Active methylcellulose, laxative, (CitruceL Sugar Free) powderIndication s:Loose stools Mix 1 tablespoon in 8 oz (240 mL) of cold water. Take by mouth once daily. Increase frequency as needed up to 3 times daily. Start with a low dose and slowly increase to prevent worse bloating. 479 g 3 3 Active pantoprazole (ProtoNix) 40 mg EC tabletIndication s:Duodenitis TAKE 1 TABLET BY MOUTH ONCE EVERYDAY BEFORE BREAKFAST *DO NOT CRUSH/CHEW/SPLIT * 90 tablet 1 3 Active traMADol (Ultram) 50 mg tablet TAKE 1 TABLET BY MOUTH TWICE A DAY NEEDED FOR 30 DAYS 4 Active lisinopril 10 mg tabletIndication s:Essential hypertension TAKE 1 TABLET BY MOUTH EVERY DAY IN THE MORNING 90 tablet 3 4 Active Active Problems Problem Noted Date Diagnosed Date [...] 23 Overview (10/02/2022): SOBIA=17.7 events/hour; Pranav SaO2=76%; Vjvjrl=372.0 lbs; BMI=52.7 kg/m2, Home Sleep Apnea Testing on 09/25/2022 at [facility] [place] (ventricular tachycardia) 04/29/2022 Overview (04/29/2022): Added automatically from request for surgery [id number] Clinical trial exam 04/23/2022 Overview (04/23/2022): Added automatically from request for surgery [id number] A-fib 04/21/2022 Spinal stenosis of lumbar re gion with neurogenic claudication 01/30/2022 Lower abdominal pain 01/30/2022 Spondylosis of 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 or radiculopathy 01/30/2022 Essential hypertension 01/25/2020 Chest pain 07/27/2016 Dyspnea 07/27/2016 Edema 07/27/2016 Fatigue 07/27/2016 Lightheadedness 07/27/2016 Encounters Date Type Department Care Team Description 08/25/2024 10:36 AM EDT - 08/25/2024 11:59 PM EDT Hospital Encounter [facility] [address] [place] [address] Migraine, unspecified, not intractable, without status migrainosus Discharge Disposition: Home or Self Care () 08/14/2024 3:30 PM EDT Ancillary Procedure [facility] [address] [place] [address] Adjustment and management of cardiac pacemaker 08/14/2024 12:00 PM EDT Ancillary Procedure [facility] [address] [place] [address] Adjustment and management of cardiac pacemaker 08/11/2024 Orders Only [facility] [address] [place] [address] Tian Hernández MD 08/11/2024 Orders Only [facility] [address] [place] [address] Irvin Posada MD from Last 3 Months Immunizations Immunization Administration Dates Next Due Pfizer SARS-CoV-2 Vaccination 01/04/2021, 021 Unspecified Sars-Cov-2 Vaccination 01/04/2021, Family History Medical History Relation Name Comments malig neoplastic disease Daughter Hyperlipidemia Father Hypertension Father [...] place to sleep or slept in a penitentiary (including now)? No 01/05/2023 Hunger Vital Sign [...] Pulse 91 08/25/2024 12:45 PM EDT Temperature 36 C (96.8 F) 02/09/2023 2:25 PM EST Respiratory Rate 16 08/25/2024 12:45 PM EDT Oxygen Saturation 97% 08/25/2024 12:45 PM EDT Inhaled Oxygen Concentration - - Weight 134 kg (295 lb) 05/09/2024 11:41 AM EST Height 162.6 cm (5' 4 ) 05/09/2024 11:41 AM EST Body Mass Index 50.64 05/09/2024 11:41 AM EST Plan of Treatment Upcoming Encounters Date Type Department Care Team (Late st Contact Info) Description 10/24/2024 10:30 AM EDT Ancillary Procedure [facility] [address] [place] [address] 10/24/2024 11:15 AM EDT Office Visit [facility] [address] [place] [address] Irvin Posada MD [address] [place] [address] Health Maintenance Due Date Last Done Comments CT Colonography 1950 FIT-DNA 1950 FIT 1950 FOBT 1950 Medicare Annual Wellness (AWV) 1950 Sigmoidoscopy 1950 Depression Screening 1963 Pneumococcal Vaccine: 50+ Years (1 of 2 - PCV) 1970 Adult Tetanus 1973 Mammogram 1991 Zoster Vaccines [...] this topic Medical Devices Implanted Type Area Mold Press Operator Device Identifier Shelf Expiration Date Model / Serial / Lot Nito Bland S 60, - [id number] - [id number] Implanted:Qty : 1 on 01/12/2023 by Constantino Bullock MD at [facility] [employer] [id number] 12/12/2024 [id number] / [id number] 75 / Lead,Nito,Kaykay 53, - [id number] - [id number] Implanted:Qty : 1 on 01/12/2023 by Constantino Bullock MD at [facility] [employer] [id number] 12/12/2024 [id number] / [id number] 64 / Pacer [address] -T - [id number] - [id number] Implanted:Qty : 1 on 01/12/2023 by Constantino Bullock MD at [facility] Pacemaker [employer] [id number] 06/12/2024 [id number] / [id number] 87 / Superion Ids - 10mm Implanted:Qty : 1 on 11/30/2022 by Jose Angel Mensah MD at [facility] N/A: Spine Lumbar [employer] [id number] 08/24/2026 [id number] / / [id number] Superion Ids - 12mm Implanted:Qty : 1 on 11/30/2022 by Jose Angel Mensah MD at [facility] N/A: Spine Lumbar [employer] [id number] 05/27/2027 [id number] / / [id number] Procedures Procedure Name Priority Date/Time Associated Diagnosis Comments MR BRAIN WO CONTRAST Routine 08/25/2024 12:50 PM EDT Migraine, unspecified, not intractable, without status migrainosus CARDIAC DEVICE CHECK CHECK - REMOTE Routine 08/22/2024 11:20 AM EDT Adjustment and management of cardiac pacemaker CARDIAC DEVICE CHECK CHECK - REMOTE Routine 08/21/2024 4:05 PM EDT Adjustment and management of cardiac pacemaker CARDIAC DEVICE CHECK - REMOTE - PACEMAKER Routine 08/11/2024 12:00 AM EDT CARDIAC DEVICE CHECK - REMOTE - PACEMAKER Routine 08/11/2024 12:00 AM EDT CARDIAC DEVICE CHECK CHECK - REMOTE Routine [...] Recently Relevant to Health Maintenance Results * MR brain wo contrast (08/25/2024 [...] flow voids in large cerebral vessels on D2aucrhrei imaging. Diffusion weighted images show no evidence for acute infarct. Mild brain atrophy and ischemic white matter disease Dense consolidation right mastoid sinus IMPRESSION: *Brain MR shows no acute findings. Mild brain atrophy and ischemicwhite matter disease *Dense consolidation right mastoid sinus Electronically signed: Estrada Raman. Jeremiah Arvizu MD IMG MRI PROCEDURES Final Result * CARDIAC DEVICE CHECK - REMOTE - PACEMAKER (08/22/2024 11:20 AM EDT) Only the most recent of3 resultswithin the time period is included. Irvin Posada MD CV IMPLANTABLE CARDIAC DEVICE AL OCEDURES Final Result CPACS * Cardiac device check - Remote pacemaker (08/11/2024 12:00 AM EDT) Only the most recent of2 resultswithin the time period is included. Anatomical Region Laterality Modality Other 08/11/2024 Tian Hernández MD CV IMPLANTABLE CARDIAC DEVICE PROCEDURES Final Result * Diagnostic Colonoscopy (02/09/2023 2:19 PM EST) [...] [place] Attending Physician: Dr. Dario Calderon Nuclear Radiologist: Rachel Prado, Fellow Procedure Details Informed consent [...] present and scrubbed for the entire procedure. us Natalia Kuhn LAB MANAGER ENDOSCOPY PROCEDURE O RDERABLES Final Result from Last 3 Months or Most Recently Relevant to Health Maintenance Insurance MEDICARE GENERIC COMMERCIAL Care Teams Impregnator Helper Relationship Specialty Start Date End Date Jeremiah Arvizu MD [address] [facility] [address] PCP - General 01/26/22
--- OUTSIDE RECORDS SUMMARY | 2024-09-04 11:31 | XMS_ITS | Encounter Summary ---
Author Organization [facility] Address [address] [place] [address] Care Team Providers Care Rayon Coner Name Role Phone Jeremiah Arvizu MD Primary Care Provider +-[phone] Jeremiah Arvizu MD Primary Care Provider +-[phone] Encounter Details Date Type Department Care Team (Late st Contact Info) Description 05/05/2024 Orders Only [facility] [address] [facility] [address] [place] [address] Hector Ellison MD [address] [place] [address] Social History Tobacco Use Types [...] Care Team (Late st Contact Info) Description 09/12/2024 9:40 AM EDT Office Visit [facility] [address] [facility] [address] [place] [address] Lakshmi Viramontes MD [address] [facility] [address] [place] [address] documented as of this encounter Procedures Procedure Name Priority Date/Time Associated Diagnosis Comments AUDIOMETRY WITH TYMPANOMETRY Routine 05/04/2024 2:06 PM EST documented in this encounter Results * Audiometry with tympanometry (05/04/2024 2:06 PM EST) us Hector Ellison MD AUDIOLOGY SERVICES ORDER [place] Final Result documented in this encounter Visit Diagnoses Not on filedocumented in this encounter Care Teams Rayon Coner Relationship Specialty Start Date End Date Jeremiah Arvizu MD PCP - General Family Medicine 05/09/24 08/01/24 Jeremiah Arvizu MD [address] [place] [address] PCP - General Family Medicine 08/02/24 documented as of this encounter
--- OUTSIDE RECORDS SUMMARY | 2024-09-04 11:31 | XMS_ITS | Clinical Summary ---
Author Organization [facility] Address [address] [place] [address] Phone Care Team Providers Care Florist'S Decorator Name Role Phone Unavailable Primary Care Provider [...]
--- OUTSIDE RECORDS SUMMARY | 2024-09-04 11:31 | XMS_ITS | Encounter Summary ---
Author Organization [facility] Address [address] [place] [address] Care Team Providers Care Radiation Technician Name Role Phone Jeremiah Arvizu MD Primary Care Provider [phone] Encounter Details Date Type Department Care Team (Late st Contact Info) Description 02/24/2022 Orders Only [facility] [address] [place] [phone] Karolyn Werner MA Essential hypertension Social History Tobacco Use Types Packs/Day Years Used Date Smoking Tobacco: Former Cigarettes Q uit: 2008 Passive Smoke Exposure: Never Smokeless Tobacco: Never Alcohol Use Standard Drinks/Week Comments Not Currently 0 (1 standard drink = 0.6 oz pur e alcohol) Comments No Sex and Gender Information Value [...] Description 10/24/2024 10:30 AM EDT Ancillary Procedure [facility] [address] [place] [facility] [address] 10/24/2024 11:15 AM EDT Office Visit [facility] [address] [place] [address] Irvin Posada MD [address] [place] [address] documented as of this encounter Visit Diagnoses Diagnosis Essential hypertension Unspecified essential hypertension documented in this encounter Care Teams Radiation Technician Relationship Specialty Start Date End Date Jeremiah Arvizu MD [address] [facility] [place] [address] PCP - General 01/26/22 documented as of this encounter
--- OUTSIDE RECORDS SUMMARY | 2024-09-04 11:31 | XMS_ITS | Referral Summary ---
Author Organization [facility] Address [address] [place] [address] Care Team Providers Care Sanitation Engineer Name Role Phone Jeremiah Arvizu MD Primary Care Provider Encounters Date Type Department Care Team Description 08/25/2024 10:36 AM EDT - 08/25/2024 11:59 PM EDT Hospital Encounter [facility] [address] [place] [phone] Migraine, unspecified, not intractable, without status migrainosus Discharge Disposition: Home or Self Care () 08/14/2024 3:30 PM EDT Ancillary Procedure [facility] [address] [place] [phone] Adjustment and management of cardiac pacemaker 08/14/2024 12:00 PM EDT Ancillary Procedure [facility] [address] [place] [phone] Adjustment and management of cardiac pacemaker 08/11/2024 Orders Only [facility] [address] [place] [address] Tian Hernández MD 08/11/2024 Orders Only [facility] [address] [place] [phone] Ivrin Posada MD from Last 3 Months Allergies Active Allergy [...] 6:58 AM EDT): D/W Dr Posada - MARY JO and he agrees that pt would benefit [...] understanding and agreement Other secondary pulmonary hypertension 12/15/2022 KATIE on CPAP 12/15/2022 Nonsustained paroxysmal ventricular tachycardia 11/30/2022 Assessment & Plan (01/01/2023 5:22 PM EDT): Continue coreg 6.25 mg bid Obstructive sleep apnea 10/02/2022 09/26/19 Overview (10/02/2022): SOBIA=17.7 events/hour; Pranav SaO2=76%; Qdmgyq=254.0 lbs; BMI=52.7 kg/m2, Home Sleep Apnea Testing on 09/25/2022 at [facility] [place] (ventricular tachycardia) 04/29/2022 Overview (04/29/2022): Added automatically from request for surgery [id number] Clinical trial exam 04/23/2022 Overview (04/23/2022): Added automatically from request for surgery [id number] A-fib 04/21/2022 Spinal stenosis of lumbar re gion with neurogenic claudication 01/30/2022 Lower abdominal pain 01/30/2022 Spondylosis of 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 or radiculopathy 01/30/2022 Essential hypertension 01/25/2020 Chest pain 07/27/2016 Dyspnea 07/27/2016 Edema 07/27/2016 Fatigue 07/27/2016 Lightheadedness 07/27/2016 Immunizations Immunization Administration Dates Next Due Pfizer [...] place to sleep or slept in a fpc (including now)? No 01/05/2023 Hunger Vital Sign [...] Description 10/24/2024 10:30 AM EDT Ancillary Procedure [address] [phone] 10/24/2024 11:15 AM EDT Office Visit [address] [place] [phone] Irvin Posada MD [address] [place] [address] Medical Devices Implanted Type Area Rim Buster Device Identifier Shelf Expiration Date Model / Serial / Lot Lead,Solmargarito,S 60, - [id number] - [id number] Implanted:Qty : 1 on 01/12/2023 by Constantino Bullock MD at [facility] Lead [employer]ot[employer] [id number] 12/12/2024 [id number] / [id number] 75 / Lead,Solia,S 53, - [id number] - [id number] Implanted:Qty : 1 on 01/12/2023 by Constantino Bullock MD at [facility] Lead [employer] [id number] 12/12/2024 [id number] / [id number] 64 / Pacer [address] -T - [id number] - [id number] Implanted:Qty : 1 on 01/12/2023 by Constantino Bullock MD at [facility] Pacemaker Biotronik [id number] 06/12/2024 [id number] / [id number] 87 / Superion Ids - 10mm Implanted:Qty : 1 on 11/30/2022 by Jose Angel Mensah MD at [facility] N/A: Spine Lumbar [employer] [id number] 08/24/2026 [id number] / / [id number] Superion Ids - 12mm Implanted:Qty : 1 on 11/30/2022 by Jose Angel Mensah MD at [facility] N/A: Spine Lumbar [employer] [id number] 05/27/2027 [id number] / / [id number] Procedures Procedure Name Priority Date/Time Associated Diagnosis [...] flow voids in large cerebral vessels on [id number] imaging. Diffusion weighted images show no evidence for acute infarct. Mild brain atrophy and ischemic white matter disease Dense consolidation right mastoid sinus IMPRESSION: *Brain MR shows no acute findings. Mild brain atrophy and ischemicwhite matter disease *Dense consolidation right mastoid sinus Electronically signed: Estraad Raman. Jeremiah Arvizu MD IMG MRI PROCEDURES Final Result * CARDIAC DEVICE CHECK - REMOTE - PACEMAKER (08/22/2024 11:20 AM EDT) Only the most recent of3 resultswithin the time period is included. Irvin Posada MD IMPLANTABLE CARDIAC DEVICE NC OCEDURES Final Result CPACS * Cardiac device check - Remote pacemaker (08/11/2024 12:00 AM EDT) Only the most recent of2 resultswithin the time period is included. Anatomical Region Laterality Modality Other 08/11/2024 Result [facility] Tian Hernández MD CV IMPLANTABLE CARDIAC DEVICE [...] Sedation: MAC Attending Physician: Dr. Dario Calderon Community Engagement Representative: Rachel Prado, Fellow Procedure Details Informed consent [...] scrubbed for the entire procedure. Natalia Kuhn CANOE MAKER ENDOSCOPY PROCEDURE O RDERABLES Final Result from Last 3 Months or Most Recently Relevant to Health Maintenance Insurance MEDICARE GENERIC COMMERCIAL Care Teams Sanitation Engineer Relationship Specialty Start Date End Date Jeremiah Arvizu MD [address] [facility] [place] [address] PCP - General 01/26/22
--- OUTSIDE RECORDS SUMMARY | 2024-09-04 11:31 | XMS_ITS | Encounter Summary ---
Author Organization [facility] Address [address] [facility] [place] [address] Care Team Providers Care Card Brusher Name Role Phone Jeremiah Arvizu MD Primary Care Provider + Jeremiah Arvizu MD Primary Care Provider + Encounter Details Date Type Department Care Team ([facility] Contact Info) Description 06/23/2024 Orders Only [facility] [address] [facility] [address] [place] [address] Jeremiah Arvizu MD [address] [facility] [place] [address] Social History Tobacco Use Types Packs/Day Years [...] Department Care Team (Late Contact Info) Description 09/12/2024 9:40 AM EDT Office Visit [facility] [address] [facility] [address] [place] [address] Lakshmi Viramontes MD [address] [facility] [address] [place] [address] documented as of this encounter Procedures Procedure Name Priority Date/Time Associated Diagnosis Comments SCANNED LABS Routine 06/20/2024 8:24 AM EDT documented in this encounter Results * SCANNED LABS (06/20/2024 8:24 AM EDT) us Jeremiah Arvizu MD LAB CHG PERFORMABLES Final Resu lt documented in this encounter Visit Diagnoses Not on filedocumented in this encounter Care Teams Card Brusher Relationship Specialty Start Date End Date Jeremiah Arvizu MD PCP - General Family Medicine 05/09/24 08/01/24 [place] [address] [place] [phone] PCP - General Family Medicine 08/02/24 documented as of this encounter
--- OUTSIDE RECORDS SUMMARY | 2024-09-04 11:31 | XMS_ITS | Encounter Summary ---
Author Organization [facility] Address [address] [facility] [place] [address] Care Team Providers Care Sr Vice President Name Role Phone Jeremiah Arvizu MD Primary Care Provider [phone] Encounter Details Date Type Department Care Team (Late st Contact Info) Description 08/11/2024 Orders Only [facility] [address] [place] [address] Irvin Posada MD [address] [place] [address] Social History Tobacco Use Types [...] place to sleep or slept in a mcc (including now)? No 01/05/2023 Hunger Vital Sign [...] 10/24/2024 10:30 AM EDT Ancillary Procedure [facility] [address] [place] [address] 10/24/2024 11:15 AM EDT Office Visit [facility] [address] [place] [address] Irvin Posada MD [address] [place] [phone] documented as of this encounter Procedures Procedure Name Priority Date/Time Associated Diagnosis Comments CARDIAC DEVICE CHECK - REMOTE - PACEMAKER Routine 08/11/2024 12:00 AM EDT documented in this encounter Results * Cardiac device check - Remote pacemaker (08/11/2024 12:00 AM EDT) Anatomical Region Laterality Modality Other 08/11/2024 us Irvin Posada MD CV IMPLANTABLE CARDIAC DEVICE AL OCEDURES Final Result documented in this encounter Visit Diagnoses Not on filedocumented in this encounter Care Teams Sr Vice President Relationship Specialty Start Date End Date Jeremiah Arvizu MD [address] [facility] [address] [address] PCP - General 01/26/22 documented as of this encounter
--- OUTSIDE RECORDS SUMMARY | 2024-09-04 11:31 | XMS_ITS | Clinical Summary ---
Author Organization [facility] Address [address] [place] [address] Care Team Providers Care Driver/Refuse Collector Name Role Phone Jeremiah Arvizu MD Primary [...] days. 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 Symptomatic bradycardia 01/01/2023 Other secondary pulmonary hypertension Nonsustained paroxysmal ventricular tachycardia 11/30/2022 Obstructive sleep apnea syndrome 10/02/2022 Overview (05/05/2024): SOBIA=17.7 events/hour; Pranav SaO2=76%; Nowibb=324.0 lbs; BMI=52.7 kg/m2, Home Sleep Apnea Testing on 09/25/2022 at [facility] [place] (ventricular tachycardia) 04/29/2022 Overview (05/05/2024): Added automatically from request for surgery [id number] Clinical trial exam 04/23/2022 Overview (05/05/2024): Added automatically from request for surgery [id number] A-fib 04/21/2022 Lower abdominal pain 01/30/2022 Spinal stenosis of lumbar re gion with neurogenic claudication 01/30/2022 Spondylosis of 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 or radiculopathy 01/30/2022 Essential hypertension 01/25/2020 Chest pain 07/27/2016 Dyspnea 07/27/2016 Edema 07/27/2016 Fatigue 07/27/2016 Lightheadedness 07/27/2016 Encounters Date Type Department Care Team Description 08/15/2024 Clinisync Result Encounter [facility] Unsolicited John Viramontes MD 08/09/2024 9:40 AM EDT Office Visit [facility] [address] [facility] [address] [place] [address] John Viramontes MD ETD (Eustachian tube dysfunction), right (Primary Dx); CSF otorrhea; Chronic myringitis of right ear 08/09/2024 Bamboo flowsheet [facility] [address] [facility] [address] [place] [address] John Viramontes MD 08/09/2024 Travel 06/26/2024 Clinisync Result Encounter [facility] External Department Unsolicited John Viramontes MD 06/23/2024 Orders Only [facility] [address] [facility] [address] [place] [address] Jeremiah Arvizu MD 06/20/2024 9:40 AM EDT Office Visit [facility] [address] [facility] [address] [place] [address] John Viramontes MD OME (otitis media with effusion), right (Primary Dx); ETD (Eustachian tube dysfunction), right; 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 06/20/2024 Bamboo flowsheet [facility] [address] [facility] [address] [place] [address] John Viramontes MD 06/20/2024 Travel from Last 3 [...] EDT Office Visit [facility] [address] [facility] [address] [place] [address] John Viramontes MD [address] [facility] [address] [place] [address] Health Maintenance Due Date Last Done Comments CT Colonography 1950 FIT-DNA 1950 FIT 1950 FOBT 1950 Sigmoidoscopy 1950 Mammogram 1991 Pneumococcal Vaccine: 65+ Ye ars (1 of 1 - PCV) 2001 Influenza Vaccine (Season Ended) 2024 Colonoscopy 02/09/2033 02/09/2023, 01/14, 07/06/2018 Colorectal Cancer Screening 02/09/2033 Medical Devices Implanted Type Area [employer] District Clerk Device Identifier Shelf Expiration Date Model / Serial / Lot Cardiac Pacemaker Cardiac Pacemaker Heart Procedures Procedure Name Priority Date/Time Associated Diagnosis Comments CT INTERNAL AUDITORY CANALS/POSTERIOR FOSSA WO IV CONTRAST 08/15/2024 2:51 PM EDT [facility] APTT Routine 06/26/2024 9:40 AM EDT [facility] PROTHROMBIN TIME INR W/O COUM Routine 06/26/2024 9:40 AM EDT SCANNED LABS Routine 06/20/2024 8:24 AM EDT from Last 3 Months Results * CT internal auditory canals/posterior fossa wo IV contrast (08/15/2024 2:51 PM EDT) Anatomical Region Laterality Modality Head, Neck Computed Tomogra phy 08/15/2024 2:51 PM EDT Narrative 08/15/2024 2:54 PM EDT The [address] [address] [address] Scan Report Signed Patient: JUSTIN COLLINS MR#: [id number] : 1950 Acct:[id number] Age/Sex: 74 / F ADM Date: 08/15/24 Loc: CT Attending Dr: John Viramontes M.D. Ordering Physician: John Viramontes M.D. Date of Service: 08/15/24 Procedure(s): CT int auditory canals w/o con Accession Number(s): [id number] cc: Jeremiah Arvizu M.D. [address] [id number] Patient Name: JUSTIN COLLINS MRN: [id number] date: 1950 Sex: F Assigned Patient Location: CT Current Patient Location: CT Accession/Order Number: [id number] Exam Date: 08/15/2024 14:47 Report Date: 08/15/2024 14:51 At the request of: JOHN VIRAMONTES MD Procedure: CT int auditory canals w/o con CT int auditory canals w/o con 08/15/2024 2:16 PM SIGNS AND SYMPTOMS: Cerebral Spinal Fluid Otorrhea COMPARISON: None. TECHNIQUE: Using a multi-detector scanner, 0.5 x 0.3 mm axial scans of the temporal bone were acquired using a high-resolution bone technique. The scans were retrospectively targeted for right and left side, and subsequently reconstructed in the coronal and Sagittal plane, again targeting the right and left sides individually, as well as the entire skull base. CT was performed with one or more of the following dose reduction techniques: Automated exposure control, adjustment of the mA and/or kV according to patient size, or use of iterative reconstruction technique. FINDINGS: Right: The middle ear cleft is within normal limits. and the ossicles are within normal limits. The cochlea, vestibule, vestibular and cochlear aqueduct are within normal limits. The facial nerve canal is within normal limits. The semicircular canals are within normal limits. The internal auditory canal is within normal limits. The external auditory canal is within normal limits. There is a small right mastoid effusion. There is a tympanostomy on the right. The carotid canal and jugular foramen are within normal limits. The temporomandibular joint is within normal limits. Left: The middle ear cleft is within normal limits and the ossicles are within normal limits. The cochlea, vestibule, vestibular and cochlear aqueduct are within normal limits. The facial nerve canal is within normal limits. The semicircular canals are within normal limits.. The internal auditory canal is within normal limits.. The external auditory canal and mastoid air cells are within normal limits. The carotid canal and jugular foramen are within normal limits. The temporomandibular joint is intact. CT/CT int auditory canals w/o con IMPRESSION: There is a small right mastoid effusion. A tympanostomy tube is present on the right. The temporal bone structures are otherwise within normal limits. The tegmen is intact bilaterally. Impression dictated by: Victor Manuel Gutierrez M.D. 08/15/2024 2:51 PM Dictation Location: [place] [address] Electronically authenticated by: [id number] Y Date: 08/15/2024 14:51 Dictated By: Victor Manuel Gutierrez M.D. Signed By: 08/15/24 1454 DD/ 1451 TD/TT: Cable Armorer Operator: Procedure Note Radiology, Radiologist, - 08/15/[address] [place] [id number] CT Scan Report Signed Patient: JUSTIN COLLINS MMR#: [id number] : 1950cct:[id number] Age/Sex: 74 / FADM Date: 08/15/24 Loc: CT Attending Dr: John Viramontes M.D. Ordering Physician: John Viramontes M.D. Date of Service: 08/15/24 Procedure(s): CT int auditory canals w/o con Accession Number(s): [id number] cc: Jeremiah Arvizu M.D. The [address] [address] Patient Name: JUSTIN COLLINS MRN: [id number] date: 1950 Sex: F Assigned Patient Location: CT Current Patient Location: CT Accession/Order Number: [id number] Exam Date: 08/15/2024 14:47 Report Date: 08/15/2024 14:51 At the request of: JOHN VIRAMONTES MD Procedure: CT int auditory canals w/o con CT int auditory canals w/o con 08/15/2024 2:16 PM SIGNS AND SYMPTOMS: Cerebral Spinal Fluid Otorrhea COMPARISON: None. TECHNIQUE: Using a multi-detector scanner, 0.5 x 0.3 mm axial scans of the temporal bone were acquired using a high-resolution bone technique. Thescans were retrospectively targeted for right and left side, and subsequently reconstructed in the coronal and Sagittal plane, again targeting the rightand left sides individually, as well as the entire skull base. CT wasperformed with one or more of the following dose reduction techniques: Automated exposure control, adjustment of the mA and/or kV according to patientsize, or use of iterative reconstruction technique. FINDINGS: Right: The middle ear cleft is within normal limits. and the ossicles are within normal limits. The cochlea, vestibule, vestibular and cochlear aqueductare within normal limits. The facial nerve canal is within normal limits. The semicircular canals are within normal limits. The internal auditory canalis within normal limits. The external auditory canal is within normal limits. There is a smallright mastoid effusion. There is a tympanostomy on the right. The carotidcanal and jugular foramen are within normal limits. The temporomandibular jointis within normal limits. Left: The middle ear cleft is within normal limits and the ossicles are within normal limits. The cochlea, vestibule, vestibular and cochlear aqueductare within normal limits. The facial nerve canal is within normal limits. The semicircular canals are within normal limits.. The internal auditory canalis within normal limits.. The external auditory canal and mastoid air cells are within normallimits. The carotid canal and jugular foramen are within normal limits. The temporomandibular joint is intact. CT/CT int auditory canals w/o con IMPRESSION: There is a small right mastoid effusion. A tympanostomy tube is present on the right. The temporal bone structures are otherwise within normal limits. Thetegmen is intact bilaterally. Impression dictated by: Victor Manuel Gutierrez M.D. 08/15/2024 2:51 PM Dictation Location: [place] [address] Electronically authenticated by: [id number] Y Date: 4:51 Dictated By: Victor Manuel Gutierrez M.D. Signed By:08/15/24 1454 DD/ 1451 TD/TT: Cable Armorer Operator: John Viramontes MD IMG CT PROCEDURES Final Resul t * [facility] PROTHROMBIN TIME INR W/O COUM (06/26/2024 9:40 AM EDT) PROTHROMBIN TIME 11.4 9.0 - 11.6 sec TBH TBH INR 1.08 TBH Comment: DESIRED INR: 2.0-3.0 CONDITIONS NOT LISTED BELOW 2.5-3.5 FOR PROSTHETIC HEART VALVE REPLACEMENT 2.5-3.5 RECURRENT THROMBOSIS 06/26/2024 9:40 AM EDT 06/26/2024 9:43 AM EDT Narrative CLINIS[facility]NC - 06/26/2024 10:23 AM EDT John Viramontes MD CLINISYWA Final Result Performing Organization Address [facility] * [facility] APTT (06/26/2024 9:40 AM EDT) PARTIAL THROMBOPLASTIN TIME 29.3 22.3 - 36.2 sec TB 06/26/2024 9:40 AM EDT 06/26/2024 9:43 AM EDT Narrative CLINISYNC - 06/26/2024 10:23 AM EDT John HERNANDEZISYWA Final Result Performing Organization Address City/[facility] Co de Phone Number [facility] * SCANNED LABS (06/20/2024 8:24 AM EDT) Jeremiah Arvizu MD LAB CHG PERFORMABLES Final Resu lt from Last 3 Months Insurance MEDICARE [facility] [employer] [facility] Care Teams Driver/Refuse Collector Relationship Specialty Start Date End Date Jeremiah Arvizu MD [address] [place] [phone] PCP - General Family Medicine 08/02/24
== END 2024-09-04 11:28 | disposition home or self-care (01) ==
LOC: LAB 11:27
PROVIDERS: PCP Family Medicine; Visit Provider Family Medicine
DX: L03.90 Cellulitis, unspecified (principal)
CPT/HCPCS: 87070; 87075

== ENCOUNTER 2024-09-07 14:52 | Outpatient (OUT) | payer MEDICARE, SELFPAY ==
--- OUTSIDE RECORDS SUMMARY | 2024-08-25 10:36 | XMS_ITS | Encounter Summary ---
Author Organization [facility] Address [address] [place] [address] Care Team Providers Care Gum Mixer Name Role Phone Jeremiah Arvizu MD Primary Care Provider [phone] Reason for Referral * Imaging (Routine) - Authorized Specialty Diagnoses / Procedures Referred By Contac t Referred To Contact Radiology Diagnoses Migraine, unspecified, not intractable, without status migrainosus Procedures MR brain wo contrast Jeremiah Arvizu MD [address] [place] [address] Phone: tel: fax: [facility] MR Imaging [address] [place] [address] Phone: tel: fax: Referral ID Status Reason Start Date Expiration Date V isits Requested Visits Authorized [id number] Authorized 08/04/2024 08/04/2025 1 1 Reason for Visit * Imaging (Routine) - Authorized Specialty Diagnoses / Procedures Referred By Contac t Referred To Contact Radiology Diagnoses Migraine, unspecified, not intractable, without status migrainosus Procedures [place] [address] [place] [address] Phone: tel: fax: [facility] MR Imaging [address] [place] [address] Phone: tel: fax: Referral ID Status Reason Start Date Expiration Date V isits Requested Visits Authorized [id number] Authorized 08/04/2024 08/04/2025 1 1 Encounter Details Date Type Department Care Team (Latest Contact Info) Description 08/25/2024 10:36 AM EDT - 08/25/2024 11:59 PM EDT Hospital Encounter [facility] [address] [place] [address] Migraine, unspecified, not intractable, without status migrainosus [...] Description 10/24/2024 10:30 AM EDT Ancillary Procedure [facility] [address] [place] [address] 10/24/2024 11:15 AM EDT Office Visit [facility] [address] [place] [facility] [address] Irvin Posada MD [address] [place] [address] documented as of this encounter Procedures Procedure [...] flow voids in large cerebral vessels on [id number] imaging. Diffusion weighted images show no evidence [...] migrainosus documented in this encounter Care Teams Gum Mixer Relationship Specialty Start Date End Date Jeremiah Arvizu MD [address] [facility] [address] [address] PCP - General 01/26/22 documented as of this encounter
--- OUTSIDE RECORDS SUMMARY | 2024-09-04 05:30 | XMS_ITS ---
Author Organization [facility] [place] Address [address] [place] [address] Care Team Providers Care Mandarin Tutor Name Role Phone Dontrell Arvizu Primary Care Provider Allergies Allergen (clinical drug ingredient) Drug/Non Drug Allergy documented on EMR Reaction Allergy Type Onset Date Status Plastic Tape (uncoded) hives Allergy 023 Active fluticasone Flonase Unknown Drug Allergy Activ e Penicillin Unknown Drug Allergy Active REASON FOR VISIT leg not healing, left leg, formed scab today, seeping, Wound culture collected and sent to [facility]. Wound redressed with wound healing ointment [...] -very heavy cigarette smoker (40+/day) Vital Signs Blood pressure systolic 142 mm Hg 09/05/19 25 Blood pressure diastolic 82 mm Hg 025 Height 65 in 09/04/2024 Weight 287.4 lbs 09/04/2024 BMI 47.82 kg/m2 09/04/2024 Encounters Encounter Location Date Provider Diagnosis [facility] [address] [place] [address] 09/04/2024 Dontrell Arvizu Cellulitis L03.9 0 Assessments [...] Name:Donal Salmeron, 09/26/2024 09:00:00 AM, [address] [place], [address], Provider Name:Beatriz Campos , 01/23/2025 09:30:00 AM, [address] [place], [address], Progress Notes * Vero COLLINS MDOB:[birth year] (74 yo F)Acc No.[id number]:09/04/2024 Progress Note Patient: Vero FIELD Provider: Alanna Arvizu ([facility])MD :1950 A ge:74 Y S ex:Female Date:09/04/2024 Address:[address] [place], [place] [id number] Check In:09:26 AM ESTCheck O ut:09:51 AM EST Subjective: * Chief Complaints: * L eg not healingLeft legFormed scab todaySeepingWound culture collected and sent to [facility]. Wound redressed with wound healing ointment [...] Status:confirmed I25.118 Atherosclerotic hear t disease of [place] coronary artery with other forms of angina [...] Procedure Codes: * Preventive Medicine: Screenings/Counseling: B [place] ACTION PLAN Above Normal BMI Follow-up D ietary management education, guidance, and counseling F ALL RISK SCREENING Fall Risk Assessment: N o falls in the past year * * Sign off status: Completed Visit Status: C HK (Check Out) true * Provider: Alanna Arvizu ([facility])MD Date: 0 09/04/2024 Generated for Katalina gardiner/Jaycob/Rimaitting on: 0 09/07/2024 02:55 PM EDT History and Physical Notes * Examination Category Sub-Category Detail Notes Category Not es Abdomen Exam: Left lower leg with cellulits - and draining
--- OUTSIDE RECORDS SUMMARY | 2024-09-04 05:46 | XMS_ITS ---
Author Organization [facility] [place] Address [address] [place] [address] Care Team Providers Care Bolt Man Name Role Phone Dontrell Arvizu Primary Care Provider [phone] Reason For Referral Diagnosis 1 Open wound of leg, l eft, subsequent encounter (S81.802D) Referral Organization [facility] Referring Provider First Name Dontrell Referring Provider Last Name Nolberto Ref[facility] denis Referred Provider Isael Mart Referred Provider Specialty Wound Care Referral Priority Routine REASON FOR VISIT refer to wound Encounters Encounter Location Date Provider Diagnosis [facility] [address] [place] [address] 09/04/2024 Dontrell Griffithnicki Open wound of leg, left, subsequent encounter S81.802D Assessments Encounter Date Diagnosis (ICD Code) Assessment Notes Treatment Notes Treatment Clinical Notes Section Notes 09/04/2024 Open wound of leg, left, subsequent encounter (ICD-10 - S81.802D) Plan Of Treatment Referrals Referral Date Details 09/04/2024 09/04/2024Isael Next Appt Details Provider Name:Donal Salmeron, 09/26/2024 09:00:00 AM, [address] [place], [address], Provider Name:Beatriz Campos , 01/23/2025 09:30:00 AM, [address] [place], [address], Progress Notes * Vero COLLINS MDOB:[birth year] (74 yo F)Acc No.[id number]:09/04/2024 Patient: Vero FIELD :1950 A ge:74 Y S ex:Female Address:[address] [place] [address], [address] Subjective: * Chief Complaints: * R efer to wound * Medical History: * Surgical History: * Hospitalization/Major Diagno stic Procedure: * Medications: Objective: * Vitals: * Physical Examination: Assessment: * Assessment: 1. O pen wound of leg, left, subsequent encounter - S81.802D (Primary) Plan: * Treatment: * Procedure Codes: * true * Date: Generated for Katalina gardiner/Jaycob/eTransmitting on: 0 09/07/2024 02:54 PM EDT Consultation Request Notes Referral Date Referring Provider Referred Provider Not es 09/04/2024 Dontrell Arvizu Peter
--- OUTSIDE RECORDS SUMMARY | 2024-09-04 06:13 | XMS_ITS ---
Author Organization The [facility] in [place] Address [address] [place] [address] Care Team Providers Care Supervisor Dehydrogenation Name Role Phone Dontrell Arvizu Primary Care Provider REASON FOR VISIT cefdinir too much money Medications Medication SIG (Take, Route, Fr equency, Duration) Notes Start Date End Date Status Cephalexin 500 MG 2 tabs Orally bid for 10 days Active Encounters Encounter Location Date Provider Diagnosis [facility] [address] [place] [address] 09/04/2024 Dontrell Arvizu Plan Of Treatment Medication Medication Name Sig Start Date Stop Date Notes Cephalexin 500 MG 2 tabs Orally bid for 10 days 09/04/2024 Next Appt Details Provider Name:Donal Salmeron, 09/26/2024 09:00:00 AM, [address] [place], [address], Provider Name:Beatriz Campos , 01/23/2025 09:30:00 AM, [address] [place], [address], Progress Notes * Vero COLLINS MDOB:[birth year] (74 yo F)Acc No.[id number]:09/04/2024 Patient: Mikki RANDALLVero :1950 A ge:74 Y S ex:Female Address:[address] [place] [address], [place], [address] * Refills Start Cephalexin Tablet, 500 MG, Orally, 40 Tablet, 2 tabs, bid, 10 days * true * Date: Generated for Katalina gardiner/Jaycob/Joleen on: 0 09/07/2024 02:55 PM EDT
--- OUTSIDE RECORDS SUMMARY | 2024-09-07 14:54 | XMS_ITS | Clinical Summary ---
Author Organization [facility] Address [address] [place] [address] Care Team Providers Care Planetarium Sky Show Technician Name Role Phone Jeremiah Arvizu MD [...] 10/02/2022 Overview (05/05/2024): SOBIA=17.7 events/hour; Pranav SaO2=76%; Qcijet=505.0 lbs; BMI=52.7 kg/m2, Home Sleep Apnea Testing on 09/25/2022 at [facility] [place] (ventricular tachycardia) 04/29/2022 Overview (05/05/2024): Added automatically from request for surgery [id number] Clinical trial exam 04/23/2022 Overview (05/05/2024): Added automatically from request for surgery [id number] A-fib 04/21/2022 Lower abdominal pain 01/30/2022 Spinal [...] Visit [facility] [address] [facility] [address] [place] [address] John Viramontes MD ETD (Eustachian tube dysfunction), right (Primary Dx); CSF otorrhea; Chronic myringitis of right ear 08/09/2024 Bamboo flowsheet [facility] [address] [facility] [address] [place] [address] John Viramontes MD 08/09/2024 Travel 06/26/2024 Clinisync Result Encounter [facility] External Department Unsolicited John Viramontes MD 06/23/2024 Orders Only [facility] [address] [facility] [address] [place] [address] Jeremiah Arvizu MD 06/20/2024 9:40 AM EDT Office Visit [facility] [address] [facility] [address] [place] [address] John Viramontes MD OME (otitis media with effusion), right (Primary Dx); ETD (Eustachian tube dysfunction), right; 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 06/20/2024 Bamboo flowsheet [facility] [address] [facility] [address] [place] [address] John Viramontes MD 06/20/2024 Travel from Last [...] EDT Office Visit [facility] [address] [facility] [address] [place] [address] John Viramontes MD 112 [facility] [address] [place] [address] Health Maintenance Due Date Last Done Comments CT Colonography 1950 FIT-DNA 1950 FIT 1950 FOBT 1950 Sigmoidoscopy 1950 Mammogram 1991 Pneumococcal Vaccine: 65+ Ye ars (1 of 1 - PCV) 2001 Influenza Vaccine (Season Ended) 2024 Colonoscopy 02/09/2033 02/09/2023, 01/14, 07/06/2018 Colorectal Cancer Screening 02/09/2033 Medical Devices Implanted Type Area Combine Driver Device Identifier Shelf Expiration Date Model / [...] EDT Narrative 08/15/2024 2:54 PM EDT The [address] [address] [address] Scan Report Signed Patient: JUSTIN COLLINS MR#: [id number] : 1950 Acct:[id number] Age/Sex: 74 / F ADM Date: 08/15/24 Loc: CT Attending Dr: John Viramontes M.D. Ordering Physician: John Viramontes M.D. Date of Service: 08/15/24 Procedure(s): CT int auditory canals w/o con Accession Number(s): [id number] cc: Jeremiah Arvizu M.D. [address] [id number] Patient Name: JUSTIN COLLINS MRN: [id number] date: 1950 Sex: F Assigned Patient Location: CT Current Patient Location: CT Accession/Order Number: [id number] Exam Date: 08/15/2024 14:47 Report Date: 08/15/2024 [...] Gutierrez M.D. 08/15/2024 2:51 PM Dictation Location: [place] [address] Electronically authenticated by: [id number] Y Date: 08/15/2024 14:51 Dictated By: Victor Manuel Gutierrez M.D. Signed By: 08/15/24 1454 DD/ 1451 TD/TT: Software Designer: Procedure Note Radiology, Radiologist, - 08/15/[address] [place] [id number] [address] Scan Report Signed Patient: JUSTIN COLLINS MMR#: [id number] : 1950cct:[id number] Age/Sex: 74 / FADM Date: 08/15/24 Loc: CT Attending Dr: John Viramontes M.D. Ordering Physician: John Viramontes M.D. Date of Service: 08/15/24 Procedure(s): CT int auditory canals w/o con Accession Number(s): [id number] cc: Jeremiah Arvizu M.D. The [address] [address] Patient Name: JUSTIN COLLINS MRN: [id number] date: 1950 Sex: F Assigned Patient Location: CT Current Patient Location: CT Accession/Order Number: [id number] Exam Date: 08/15/2024 14:47 Report Date: 08/15/2024 [...] Gutierrez M.D. 08/15/2024 2:51 PM Dictation Location: [place] [address] Electronically authenticated by: [id number] Y Date: 4:51 Dictated By: Victor Manuel Gutierrez M.D. Signed By:08/15/24 1454 DD/ 1451 TD/TT: Software Designer: John Viramontes MD IMG CT PROCEDURES Final [...] 06/26/2024 10:23 AM EDT John Viramontes MD CLINISYWI Final Result Performing Organization Address [facility] Co de Phone Number [facility] APTT (06/26/2024 9:40 AM EDT) PARTIAL THROMBOPLASTIN TIME 29.3 22.3 - 36.2 sec TB 06/26/2024 9:40 AM EDT 06/26/2024 9:43 AM EDT Narrative CLINISYNC - 06/26/2024 10:23 AM EDT John HERNANDEZISYWI Final Result Performing Organization Address City/[facility] Co de Phone Number [facility] * [facility] (06/20/2024 8:24 AM EDT) Jeremiah Arvizu MD LAB CHG PERFORMABLES Final Resu lt from Last 3 Months Insurance MEDICARE [facility] [employer] [facility] Care Teams Planetarium Sky Show Technician Relationship Specialty Start Date End Date Jeremiah Arvizu MD [address] [place] [phone] PCP - General Family Medicine 08/02/24
--- OUTSIDE RECORDS SUMMARY | 2024-09-07 14:54 | XMS_ITS | Encounter Summary ---
Author Organization [facility] Address [address] [place] [address] Care Team Providers Care Mixing Place Supervisor Name Role Phone Jeremiah Arvizu MD Primary Care Provider +-4 Jeremiah Arvizu MD Primary Care Provider +-4 Encounter Details Date Type Department Care Team (Late st Contact Info) Description 05/05/2024 Orders Only [facility] [address] [facility] [address] [place] [address] Hector Ellison MD [address] [place] [address] Social History Tobacco Use Types [...] Visit [facility] [address] [facility] [address] [place] [address] Lakshmi Viramontes MD [address] [facility] [address] [place] [address] documented as of this encounter Procedures Procedure Name Priority Date/Time Associated Diagnosis Comments AUDIOMETRY WITH TYMPANOMETRY Routine 05/04/2024 2:06 PM EST documented in this encounter Results * Audiometry with tympanometry (05/04/2024 2:06 PM EST) us Hector Ellison MD AUDIOLOGY SERVICES ORDER HALEY Final Result documented in this encounter Visit Diagnoses Not on filedocumented in this encounter Care Teams Mixing Place Supervisor Relationship Specialty Start Date End Date Jeremiah Arvizu MD PCP - General Family Medicine 05/09/24 08/01/24 Jeremiah Arvizu MD [address] [place] [address] PCP - General Family Medicine 08/02/24 documented as of this encounter
--- OUTSIDE RECORDS SUMMARY | 2024-09-07 14:54 | XMS_ITS | Encounter Summary ---
Author Organization [facility] Address [address] [facility] [place] [address] Care Team Providers Care Quiller Machine Fixer Name Role Phone Jeremiah Arvizu MD Primary Care Provider + Jeremiah Arvizu MD Primary Care Provider + Encounter Details Date Type Department Care Team ([facility] Contact Info) Description 06/23/2024 Orders Only [facility] [address] [facility] [address] [place] [address] Jeremiah Arvizu MD [address] [facility] [place] [address] Social History Tobacco Use Types Packs/Day Years [...] EDT Office Visit [facility] [address] [facility] [address] [place] [address] Lakshmi Viramontes MD 112 [facility] 130 [place] [address] documented as of this encounter Procedures Procedure Name Priority Date/Time Associated Diagnosis Comments SCANNED LABS Routine 06/20/2024 8:24 AM EDT documented in this encounter Results * SC[facility]ED LABS (06/20/2024 8:24 AM EDT) us Jeremiah Arvizu MD LAB CHG PERFORMABLES Final Resu lt documented in this encounter Visit Diagnoses Not on filedocumented in this encounter Care Teams Quiller Machine Fixer Relationship Specialty Start Date End Date Jeremiah Arvizu MD PCP - General Family Medicine 05/09/24 08/01/24 [place] [address] [place] [phone] PCP - General Family Medicine 08/02/24 documented as of this encounter
--- OUTSIDE RECORDS SUMMARY | 2024-09-07 14:55 | XMS_ITS | Clinical Summary ---
Author Organization [facility] Address [address] [place] [id number] Care Team Providers Care Radiology Administrator Name Role Phone Jeremiah Arvizu MD Primary [...] A AND B GENERIC PLAN Care Teams Radiology Administrator Relationship Specialty Start Date End Date Jeremiah Arvizu MD PCP - General Family Medicine 06/26/16
--- OUTSIDE RECORDS SUMMARY | 2024-09-07 14:55 | XMS_ITS | Encounter Summary ---
Author Organization [facility] Address [address] [place] [address] Care Team Providers Care Scrap Metal Processing Worker Name Role Phone Jeremiah Arvizu MD Primary Care Provider [phone] Encounter Details Date Type Department Care Team (Late st Contact Info) Description 08/04/2022 Community Orders LISA HOLLINS [facility] 1,2,3 [facility] [place], [place] [phone] Linn Álvarez PA [address] [place] [address] [phone] Social History Tobacco Use Types Packs/Day Years [...] Description 10/24/2024 10:30 AM EDT Ancillary Procedure [facility] [address] [place] [address] 10/24/2024 11:15 AM EDT Office Visit [facility] [address] [place] [address] Irvin Posada MD [address] [place] [phone] documented as of this encounter Visit Diagnoses Not on filedocumented in this encounter Care Teams Scrap Metal Processing Worker Relationship Specialty Start Date End Date Jeremiah Arvizu MD [address] [facility] [address] [address] PCP - General 01/26/22 documented as of this encounter
--- OUTSIDE RECORDS SUMMARY | 2024-09-07 14:55 | XMS_ITS | Encounter Summary ---
Author Organization [facility] Address [address] [place] [address] Care Team Providers Care Food Stylist Name Role Phone Jeremiah Arvizu MD Primary Care Provider [phone] Encounter Details Date Type Department Care Team (Late st Contact Info) Description 08/04/2022 Community Orders [address] 1,2,3 [address] [place] [address] Jose Angel Catherine MD [address] [place] [address] Social History Tobacco Use Types Packs/Day [...] Description 10/24/2024 10:30 AM EDT Ancillary Procedure [facility] [address] [place] [address] 10/24/2024 11:15 AM EDT Office Visit [facility] [address] [place] [address] Irvin Posada MD [address] [place] [phone] documented as of this encounter Visit Diagnoses Not on filedocumented in this encounter Care Teams Food Stylist Relationship Specialty Start Date End Date Jeremiah Arvizu MD [address] [facility] [address] [address] PCP - General 01/26/22 documented as of this encounter
--- OUTSIDE RECORDS SUMMARY | 2024-09-07 14:55 | XMS_ITS | Patient Health Record ---
Author Organization The [facility] in [place] Address [address] [place] [address] Care Team Providers Care Housing Director Name Role Phone Dontrell Arvizu Primary Care Provider Provider, JONATHAN Unavailable [phone] Jose Angel Mensah Unavailable [phone] Bhavana Long Unavailable [phone] Beatriz Campos Unavailable [phone] Donal Salmeron Unavailable [phone] Allergies Allergen (clinical drug ingredient) Drug/Non Drug Allergy documented on EMR Reaction Allergy Type Onset Date Status Plastic Tape (uncoded) hives Allergy 023 Active fluticasone Flonase Unknown Drug Allergy Activ e Penicillin Unknown Drug Allergy Active Results Component Value Reference Range Notes XR FOOT RT 2V Reviewed date:03/11/2024 08:36:26 PM Interpretation: Performing Lab: Notes/Report: Source Facility: [place] [id number] XRay Report Signed Patient: JUSTIN SADLER MR#: [id number] : 1950 Acct:[id number] Age/Sex: 74 / F ADM Date: 03/10/24 Loc: RAD Attending Dr: Debbie Arvizu M.D. Ordering Physician: Debbie Arvizu M.D. Date of Service: 03/10/24 Procedure(s): XR foot RT 2V Accession Number(s): [id number] cc: Debbie Arvizu M.D. [place] [address] Patient Name: JUSTIN SADLER MRN: [id number] date: 1950 Sex: F Assigned Patient Location: RAD Current Patient Location: RAD Accession/Order Number: [id number] Exam Date: 03/10/2024 14:45 Report Date: 03/10/2024 [...] Moon M.D. Signed By: 03/10/24 1522 DD/ 152 TD/TT: Accounts Payable Clerk: The [address] [address] XRay Report Signed Patient: MARY SADLER SE MR#: [id number] : 1950 Acct:[id number] Age/Sex: 74 / F ADM Date: 03/10/24 Loc: RAD Attending Dr: Yong Arvizu M.D. Ordering Physician: Debbie Arvizu M.D. Date of Service: 03/10/24 Procedure(s): XR aries t RT 2V Accession Number(s): [id number] cc: Debbie Arvizu M.D. The [address] [address] Patient Name: JUSTIN SADLER MRN: [id number] date: 1950 Sex: F Assigned Patient Location: RAD Current Patient Loca tion: RAD Accession/Order Numb er: [id number] Exam Date: 14:45 Report Date: 03/10/2024 15:20 [...] Signed By: 03/10/24 1522 DD/ 1520 TD/TT: Accounts Payable Clerk: CT lower leg LT wo con Reviewed date:08/15/2024 04:17:45 PM Interpretation: Performing Lab: Notes/Report: Source Facility: [place] [address] [place] [address] CT Scan Report Signed Patient: JUSTIN SADLER MR#: [id number] : 1950 Acct:[id number] Age/Sex: 74 / F ADM Date: 08/15/24 Loc: CT Attending Dr: Debbie Arvizu M.D. Ordering Physician: Debbie Arvizu M.D. Date of Service: 08/15/24 Procedure(s): CT lower leg LT wo con Accession Number(s): [id number] cc: Debbie Arvizu M.D. The [place] [address] Patient Name: JUSTIN SADLER MRN: [id number] date: 1950 Sex: F Assigned Patient Location: CT Current Patient Location: CT Accession/Order Number: [id number] Exam Date: 08/15/2024 15:40 Report Date: 08/15/2024 15:45 At the request of: DEBBIE ARVIZU MD Procedure: CT lower leg LT wo con CT left lower leg without contrast TECHNIQUE: The CT exam was performed using one or more the following dose reduction techniques: Automated exposure control, adjustment of the MA and/or Kv according to patient size, or use of the iterative reconstruction technique. COMPARISON: None HISTORY: Acute hematoma involving the left dewey. Injury one and half weeks ago. History of recent lancing of area. Continued pain and swelling. Skin marker identifies region of soft tissue swelling anteriorly. Skin thickening identified. No drainable fluid collection identified. Subcutaneous fatty stranding present. No subcutaneous air. No radiodense foreign body. Benign soft tissue calcifications. No intramuscular hematoma or fluid collection. Intact bony structures. Moderate knee degeneration. CT/CT lower leg LT wo con IMPRESSION: Focal soft tissue swelling and inflammatory changes in the anterior portion of the left lower leg which was identified with a BB marker correspond with region of palpable abnormality. No drainable fluid collection seen. Diffuse skin thickening and subcutaneous edematous changes. No acute intramuscular hematoma. No acute bony findings. Impression dictated by: Sacha Ashford M.D. 08/15/2024 3:45 PM Dictation Location: [place] [address] Electronically authenticated by: [id number] Y Date: 08/15/2024 15:45 Dictated By: Sacha Ashford D.O. Signed By: 08/15/24 1547 DD/ 1545 TD/TT: Accounts Payable Clerk: [place] [address] CT Scan Report Signed Patient: MARY SADLER SE MR#: [id number] : 1950 Acct:[id number] Age/Sex: 74 / F ADM Date: 08/15/24 Loc: CT Attending Dr: Yong Arvizu M.D. Ordering Physician: Debbie Arvizu M.D. Date of Service: 08/15/24 Procedure(s): CT low er leg LT wo con Accession Number(s): [id number] cc: Debbie Arvizu M.D. The [place] [id number] Patient Name: JUSTIN SADLRE MRN: [id number] date: 1950 Sex: F Assigned Patient Location: CT Current Patient Loca tion: CT Accession/Order Numb er: [id number] Exam Date: 08/15/2024 15:40 Report Date: 08/15/2024 15:45 At the request of: DEBBIE ARVIZU MD Procedure: CT lower leg LT wo con CT left lower leg wi thout contrast TECHNIQUE: The CT ex am was performed using one or more the following dose reduction techniques : Automated exposure control, adjustment of the MA and/or Kv according to kaise ent size, or use of the iterative reconstruction technique. COMPARISON: None HISTORY: Acute hemat guille involving the left dewey. Injury one and half weeks ago. History of rece nt lancing of area. Continued pain and swelling. Skin marker identifi es region of soft tissue swelling anteriorly. Skin thickening identifie d. No drainable fluid collection identified. Subcutaneous fatty stranding present. No subcutaneous air. No radiodense foreign body. Benign soft tissue calcifications. No intramuscular hematoma or fluid collection. Intact bony structures. Moderate knee degeneration. C T/CT lower leg LT wo con IMPRESSION: Focal so ft tissue swelling and inflammatory changes in the anterior portion of the left lower leg which was identified with a BB marker correspond with bradley on of palpable abnormality. No drainable fluid collection seen. Diffuse skin thickening and subcutaneous edematous changes. No acute intramuscular hemato ma. No acute bony findings. Impression dictated by: Sacha Ashford M.D. 08/15/2024 3:45 PM Dictation Location: [place] [address] Electronically authenticated by: [id number] Y Date: 08/15/2024 15:45 Dictated By: Sacha Ashford D.O. Signed By: 08/15/24 1547 DD/ 1545 TD/TT: Accounts Payable Clerk: JIMMY AUTO DIFF Reviewed date:01/23/2024 05:32:21 PM Interpretation: Performing Lab: Notes/Report: [facility] , White Blood Count 8.2 4.0-11.0 [...] Performing Lab: see note ML - [facility] LB ECG 12 lead Reviewed date:01/24/2024 01:26:44 PM Interpretation: Performing Lab: Notes/Report: Source Facility: [facility] [place] [address] [place] [address] Electrocardiograph Report Signed Patient: JUSTIN SADLER MR#: [id number] : 1950 Acct:[id number] Age/Sex: 73 / F ADM Date: 01/23/24 Loc: ER Attending Dr: Ordering Physician: Holli Ocampo Date of Service: 01/23/24 Procedure(s): ECG 12 lead Accession Number(s): [id number] cc: [facility] Test Date: 2024-01-23 Pat Name: JUSTIN SADLER Department: Room: - Gender: Female Plow Holder: : 1950 Requested By: DEBBIE ARVIZU Order Number: [id number] Reading MD: DEBBIE ARVIZU Measurements Intervals Gaffney Rate: 81 P: 87 MI: 156 QRS: 68 QRSD: 88 T: 60 QT: 384 QTc: 421 Interpretive Statements [id number] Electronic atrial pacemaker 9120 atypical ECG Compared to ECG 01/19/2023 11:51:08 Sinus rhythm no longer present T-wave abnormality no longer present Electronically Signed On 01-24-2024 5:15:18 EST by DEBBIE ARVIZU Dictated By: Debbie Arvizu M.D. Signed By: 01/24/24 0515 DD/ 11 TD/TT: Accounts Payable Clerk: [place] [address] Electrocardiograph Report Signed Patient: MARY SADLER SE MR#: [id number] : 1950 Acct:[id number] Age/Sex: 73 / F ADM Date: 01/23/24 Loc: ER Attending Dr: Ordering Physician: Holli Ocampo Date of Service: 01/23/24 Procedure(s): ECG 12 lead Accession Number(s): [id number] cc: [facility] Test Date: 2024-01-23 Pat Name: JUSTIN ZELAYA Department: 23 Room: - Gender: Female Plow Holder: : 1950 Requ ested By: DEBBIE ARVIZU Order Number: [id number] Reading MD: DEBBIE ARVIZU Measurements Intervals Gaffney Rate: 81 P: 87 MI: 156 QRS: 68 QRSD: 88 T: 60 QT: 384 QTc: 421 Interpretive Statements [id number] Electronic atr ial pacemaker 9120 atypical ECG Compared to ECG 01/19/2023 11:51:08 Sinus rhythm no long er present T-wave abnormality n o longer present Electronically Virgie d On 01-24-2024 5:15:18 EST by DEBBIE ARVIZU Dictated By: Perri Arvizu M.D. Signed By: 01/24/24 0515 DD/ 1712 TD/TT: Accounts Payable Clerk: UA RANDOM W or MICROSCOPIC Reviewed date:02/01/2024 08:16:19 PM Interpretation: Performing Lab: Notes/Report: [facility] , Color Urine LT. YELLOW YELLOW Clarity Urine CLEAR CLEAR Specific Comfrey Urine 1.020 1.005-1.025 pH Urine 6.0 5.0-9.0 [...] FEW NONE/RARE #/LPF Performing Lab: see note - [facility] LB PTH, Intact Reviewed date:02/01/2024 11:07:43 AM Interpretation: Performing Lab: Notes/Report: [facility] , PTH, Intact 46 15-65 pg/mL Performed at: - [facility] [address] [id number] [employer] Crewmember: Jozef Medina PhD, Phone: [phone] Performing Lab: see note - [facility] LB XR sinus min 3V Reviewed date:05/09/2024 04:10:11 PM Interpretation: Performing Lab: Notes/Report: Source Facility: [place] [address] XRay Report Signed Patient: JUSTIN SADLER MR#: [id number] : 1950 Acct:[id number] Age/Sex: 74 / F ADM Date: 05/09/24 Loc: RAD Attending Dr: Lakshmi Mathews M.D. Ordering Physician: Lakshmi Mathews M.D. Date of Service: 05/09/24 Procedure(s): XR sinus min 3V Accession Number(s): [id number] cc: Debbie Arvizu M.D.; Lakshmi Mathews M.D. [address] [id number] Patient Name: JUSTIN SADLER MRN: [id number] date: 1950 Sex: F Assigned Patient Location: [facility] Current Patient Location: [facility] Accession/Order Number: [id number] Exam Date: 05/09/2024 12:47 Report Date: 05/09/2024 [...] Kelly Lao M.D.05/09/2024 12:54 PM Dictation Location: [place] [address] Electronically authenticated by: [id number] Y Date: 05/09/2024 12:54 Dictated By: Kelly Lao M.D. Signed By: 05/09/24 1257 DD/ 1254 TD/TT: Accounts Payable Clerk: [place] [address] XRay Report Signed Patient: MARY SADLER SE MR#: [id number] : 1950 Acct:[id number] Age/Sex: 74 / F ADM Date: 05/09/24 Loc: RAD Attending Dr: Lakshmi Mathews M.D. Ordering Physician: Lakshmi Mathews M.D. Date of Service: 05/09/24 Procedure(s): XR sin us min 3V Accession Number(s): [id number] cc: Debbie Arvizu M.D. ; Lakshmi Mathews M.D. [address] [address] Patient Name: JUSTIN SADLER MRN: [id number] date: 1950 Sex: F Assigned Patient Location: RAD Current Patient Loca tion: RAD Accession/Order Irwin er: [id number] Exam Date: 05/09/2024 12:47 Report Date: 05/09/2024 [...] Kelly Lao M.D.05/09/2024 12:54 PM Dictation Location: [place] [address] Electronically authenticated by: [id number] Y Date: 05/09/2024 12:54 Dictated By: Kelly Lao M.D. Signed By: 05/09/24 1257 DD/ 1254 TD/TT: Accounts Payable Clerk: CBC AUTO DIFF Reviewed date:06/20/2024 03:31:27 PM Interpretation: Performing Lab: Notes/Report: [facility] , White Blood Count 7.5 4.0-11.0 [...] Performing Lab: see note ML - [facility] LB FERRITIN Reviewed date:06/20/2024 03:31:27 PM Interpretation: Performing Lab: Notes/Report: [facility] , Ferritin 147.0 8.0-252.0 ng/mL Performing Lab: see note ML - [facility] LB FREE T3 Reviewed date:06/20/2024 03:31:27 PM Interpretation: Performing Lab: Notes/Report: [facility] , Free T3 2.57 2.18-3.98 pg/mL Performing Lab: see note ML - [facility] LB LIPID PROFILE Reviewed date:06/20/2024 03:31:27 PM Interpretation: Performing Lab: Notes/Report: [facility] , Triglycerides 55 <=150 mg/dL Cholesterol [...] RISK Performing Lab: see note ML - [facility] LB T4 Reviewed date:06/20/2024 03:31:27 PM Interpretation: Performing Lab: Notes/Report: [facility] , T4 Thyroxine 8.10 4.80-13.90 ug/dL Performing Lab: see note ML - [facility] LB TSH Reviewed date:06/20/2024 03:31:27 PM Interpretation: Performing Lab: Notes/Report: [facility] , Thyroid Stimulating Hormone 0.008 0.358-3.740 uIU/mL Performing Lab: see note ML - The [facility] UA RANDOM W or MICROSCOPIC Reviewed date:06/20/2024 03:31:27 PM Interpretation: Performing Lab: Notes/Report: [facility] , Color Urine YELLOW YELLOW Clarity Urine CLEAR CLEAR Specific Comfrey Urine 1.020 1.005-1.025 pH Urine 6.0 5.0-9.0 [...] Culture Indicated NO Performing Lab: see note ML - [facility] LB URINE T PROTEIN CREAT RATIO Reviewed date:06/20/2024 03:31:27 PM Interpretation: Performing Lab: Notes/Report: [facility] , Total Protein Urine Random 30.4 <=11.9 mg/dL Creatinine Urine Random 127.97 20.00-30 0.00 mg/dL Protein Creatinine Ratio Urine 0.24 Performing Lab: see note ML - [facility] LB VITAMIN D 25 [place] Reviewed date:06/20/2024 03:31:27 PM Interpretation: Performing Lab: Notes/Report: [facility] , Vitamin D 37.9 <20 ng/mL Vit D deficient 20-<30 ng/mL Vit D insufficient 30-100 ng/mL Vit D sufficient >100 ng/mL Potential Toxicity Performing Lab: see note ML - [facility] LB PTH, Intact Reviewed date:06/21/2024 12:49:25 PM Interpretation: Performing Lab: Notes/Report: [facility] , PTH, Intact 43 15-65 pg/mL Performed at: [address] [id number] [employer] Crewmember: Jozef Medina PhD, Phone: [phone] Performing Lab: see note LC - [facility] LB Immunofixation, Urine Reviewed date:06/22/2024 08:14:52 PM Interpretation: Performing Lab: Notes/Report: [facility] , Immunofixation, Urine Comment . No monoclonality detected. Performed at: [address] [id number] [employer] Crewmember: Jozef Medina PhD, Phone: [phone] Performing Lab: see note LC - [facility] LB JOSE, PE and FLC, Serum Reviewed date:06/22/2024 08:14:52 PM Interpretation: Performing Lab: Notes/Report: [facility] , Immunoglobulin G, Qn, Serum 8092 217-8221 mg/dL Immunoglobulin A, Qn, Serum 206 64-422 mg/dL Immunoglobulin M, Qn, Serum 98 26-217 mg/dL Protein, Total 6.4 6.0-8.5 g/dL Albumin 2.9 2.9-4.4 g/dL Tpnxn-2-Stpyboft 0.3 0.0-0.4 g/dL Izxfj-1-Hugxogxe 1.0 0.4-1.0 g/dL Beta Globulin 1.1 0.7-1.3 [...] scan will follow via computer, mail, or field collector delivery. Free [place] Lt Chains,S 51.5 3.3-19.4 mg/L Free Lambda Lt Chains,S 30.7 5.7-26.3 mg/L [place]/Lambda Ratio,S 1.68 0.26-1.65 Performed at: - [facility] [id number] [employer] Crewmember: Jozef Medina PhD, Phone: [phone] Performing Lab: see note - [facility] LB PTT Reviewed date:06/26/2024 08:31:41 PM Interpretation: Performing Lab: Notes/Report: [facility] , Partial Thromboplastin Time 29.3 22.3-36.2 sec Performing Lab: see note ML - [facility] LB Prothrombin Time INR Reviewed date:06/26/2024 08:31:41 PM Interpretation: Performing Lab: Notes/Report: [facility] , Prothrombin Time 11.4 9.0-11.6 sec INR 1.08 DESIRED INR: 2.0-3.0 CONDITIONS NOT LISTED BELOW 2.5-3.5 FOR PROSTHETIC HEART VALVE REPLACEMENT 2.5-3.5 RECURRENT THROMBOSIS Performing Lab: see note ML - [facility] LB CRP Reviewed date:07/30/2024 09:56:53 PM Interpretation: Performing Lab: Notes/Report: [facility] , C Reactive Protein <0.50 <=0.50 mg/dL Performing Lab: see note ML - [facility] LB LDH Reviewed date:07/30/2024 09:56:53 PM Interpretation: Performing Lab: Notes/Report: [facility] , Lactate Dehydrogenase 147 81-234 U/L Performing Lab: see note - [facility] LB PROF 14(COMP METB) Reviewed date:07/30/2024 09:56:53 PM Interpretation: Performing Lab: Notes/Report: [facility] , Sodium 139 136-145 mmol/L Potassium [...] 0.8 Performing Lab: see note ML - [facility] LB Erythrocyte Sedimentation Ra te Reviewed date:07/30/2024 09:56:53 PM Interpretation: Performing Lab: Notes/Report: [facility] , Erythrocyte Sedimentation Rate 96 <=30 mm/hr Performing Lab: see note ML - [facility] LB JOSE, PE and FLC, Serum Reviewed date:07/30/2024 09:56:53 PM Interpretation: Performing Lab: Notes/Report: [facility] , Immunoglobulin G, Qn, Serum 1457 042-4192 mg/dL Immunoglobulin A, Qn, Serum 179 64-422 mg/dL Immunoglobulin M, Qn, Serum 87 26-217 mg/dL Protein, Total 6.2 6.0-8.5 g/dL Albumin 3.2 2.9-4.4 g/dL Bvlmd-0-Maijwlsa 0.3 0.0-0.4 g/dL Hgisw-7-Flooxhtx 0.9 0.4-1.0 g/dL Beta Globulin 1.0 0.7-1.3 [...] scan will follow via computer, mail, or field collector delivery. Free [place] Lt Chains,S 42.0 3.3-19.4 mg/L Free Lambda Lt Chains,S 26.6 5.7-26.3 mg/L [place]/Lambda Ratio,S 1.58 0.26-1.65 Performed at: - [facility] [address] [id number] [employer] Crewmember: Jozef Medina PhD, Phone: [phone] Performing Lab: see note - [facility] LB CBC AUTO DIFF Reviewed date:07/30/2024 09:56:53 PM Interpretation: Performing Lab: Notes/Report: [facility] , White Blood Count 7.2 4.0-11.0 [...] 3/uL Performing Lab: see note ML - [facility] LB PROF CHEM 8 (BAS METB) Reviewed date:07/30/2024 09:56:53 PM Interpretation: Performing Lab: Notes/Report: [facility] , Sodium 141 136-145 mmol/L Potassium [...] mg/dL Performing Lab: see note ML - [facility] LB Troponin I High Sensitivity Reviewed date:07/30/2024 09:56:53 PM Interpretation: Performing Lab: Notes/Report: [facility] , Troponin I High Sensitivity 12.0 4.0-51.3 pg/mL CUT-OFF POINTS HAVE BEEN ESTABLISHED BASED ON THE FOURTH UNIVERSAL DEFINITION OF MYOCARDIAL INFARCTION. THE UPPER REFERENCE LIMIT (URL) OF TROPONIN, DEFINED THE 99TH PERCENTILE OF cTnI DISTRIBUTION IN A REFERENCE POPULATION, HAS BEEN CONFIRMED THE DECISION THRESHOLD FOR [place] DIAGNOSIS. 99TH PERCENTILE = 51.4 PG/ML NOTE: HIGH-SENSITIVITY TROPONIN ASSAY IS NOT INTENDED TO BE USED IN ISOLATION BUT SHOULD BE INTERPRETED IN CONJUNCTION WITH OTHER DIAGNOSTIC AND CLINICAL INFORMATION. Performing Lab: see note ML - [facility] LB CBC AUTO DIFF Reviewed date:07/30/2024 09:56:53 PM Interpretation: Performing Lab: Notes/Report: [facility] , White Blood Count 6.2 4.0-11.0 [...] 3/uL Performing Lab: see note ML - [facility] LB MAGNESIUM Reviewed date:07/30/2024 09:56:53 PM Interpretation: Performing Lab: Notes/Report: [facility] , Magnesium 1.9 1.8-2.4 mg/dL Performing Lab: see note ML - [facility] LB PROF 14(COMP METB) Reviewed date:07/30/2024 09:56:53 PM Interpretation: Performing Lab: Notes/Report: [facility] , Sodium 144 136-145 mmol/L Potassium [...] Globulin Ratio 0.9 Performing Lab: see note - [facility] LB Aerobic Culture Reviewed date:08/13/2024 04:24:34 PM Interpretation: Performing Lab: Notes/Report: [facility] , Aerobic Culture See Below For Report Aerobic Culture Aerobic Culture Specimen has been received and testing has been initiated. Aerobic Culture Aerobic Culture Aerobic Culture Aerobic Culture No growth in 36 - 48 hours. Aerobic Culture Aerobic Culture Performed at: [facility] Aerobic Culture Aerobic Culture [address] [place] [id number] Aerobic Culture Aerobic Culture [employer] Crewmember: Serena Medina PhD, Phone: [phone] Aerobic Culture Performing Lab: see note [facility] SEE REPORT - Plant Care Worker Id information not found for OBX-specific assistant producer legend Aerobic Culture (Not yet rev iewed by provider) Interpretation: Performing Lab: Notes/Report: [facility] , Aerobic Culture See Below For Report Aerobic Culture Aerobic Culture Mixed skin sonny Aerobic Culture Aerobic Culture Performed at: [facility] Aerobic Culture Aerobic Culture [address] [place], [place] [id number] Aerobic Culture Aerobic Culture [employer] Crewmember: Serena Medina PhD, Phone: [phone] Aerobic Culture Performing Lab: see note [facility] LB SEE REPORT - Plant Care Worker Id information not found for OBX-specific assistant producer legend ECG 12 lead Reviewed date:07/30/2024 09:56:53 PM Interpretation: Performing Lab: Notes/Report: Source Facility: [place] [address] [place] [address] Electrocardiograph Report Signed Patient: JUSTIN SADLER MR#: [id number] : 1950 Acct:[id number] Age/Sex: 74 / F ADM Date: 07/28/24 Loc: [place] 232-[address]: Debbie Arvizu M.D. Ordering Physician: Etienne Arceo Date of Service: 07/28/24 Procedure(s): ECG 12 lead Accession Number(s): [id number] cc: [facility] Test Date: 2024-07-28 Pat Name: JUSTIN SADLER Department: Room: - Gender: Female Plow Holder: : 1950 Requested By: [id number] Order Number: [id number] Reading MD: LOVE RUBIO M.D. Measurements Intervals Gaffney Rate: 80 P: 92 MI: 180 QRS: 37 QRSD: 88 T: 27 QT: 402 QTc: 438 Interpretive Statements [id number] Electronic atrial pacemaker 9120 atypical ECG Compared to ECG 01/23/2024 17:12:55 No significant changes Electronically Signed On 07-29-2024 7:49:53 EDT by LOVE RUBIO M.D. Dictated By: LOVE RUBIO Signed By: 07/29/24 075 DD/ 06 TD/TT: Accounts Payable Clerk: [place] [address] Electrocardiograph Report Signed Patient: MARY SADLER SE MR#: [id number] : 1950 Acct:[id number] Age/Sex: 74 / F ADM Date: 07/28/24 Loc: [place] 232-[address]: Yong Arvizu M.D. Ordering Physician: Etienne Arceo Date of Service: 07/28/24 Procedure(s): ECG 12 lead Accession Number(s): [id number] cc: [facility] Test Date: 2024-07-28 Pat Name: JUSTIN ZELAYA Department: 23 Room: - Gender: Female Plow Holder: : 1950 Requ ested By: 1031 Order Number: [id number] Reading MD: LOVE RUBIO M.D. Measurements Intervals Gaffney Rate: 80 P: 92 MI: 180 QRS: 37 QRSD: 88 T: 27 QT: 402 QTc: 438 Interpretive Statements [id number] Electronic atr ial pacemaker 9120 atypical ECG Compared to ECG 01/23/2024 17:12:55 No significant changes Electronically Virgie d On 07-29-2024 7:49:53 EDT by LOVE RUBIO M.D. Dictated By: LOVE RUBIO Signed By: 07/29/24 0750 DD/ 06 TD/TT: Accounts Payable Clerk: Reticulocyte Pct Auto Reviewed date:07/30/2024 09:56:53 PM Interpretation: Performing Lab: Notes/Report: [facility] , Reticulocyte Pct Auto 1.22 0.60-3.10 % Performing Lab: see note - [facility] LB CBC AUTO DIFF Reviewed date:07/30/2024 09:56:53 PM Interpretation: Performing Lab: Notes/Report: [facility] , White Blood Count 6.5 4.0-11.0 [...] 10 3/uL Performing Lab: see note - [facility] LB Occult Blood* Reviewed date:06/22/2024 08:14:52 PM Interpretation: Performing Lab: Notes/Report: [facility] , Occult Blood Positive Performing Lab: see note - [facility] LB URIC ACID SERUM Reviewed date:06/20/2024 03:31:27 PM Interpretation: Performing Lab: Notes/Report: [facility] , Uric Acid 8.0 2.6-6.0 mg/dL Performing Lab: see note - [facility] PROF 14(COMP METB) Reviewed date:06/20/2024 03:31:27 PM Interpretation: Performing Lab: Notes/Report: [facility] , Sodium 142 136-145 mmol/L Potassium [...] 0.8 Performing Lab: see note ML - [facility] LB PHOSPHORUS Reviewed date:06/20/2024 03:31:27 PM Interpretation: Performing Lab: Notes/Report: [facility] , Phosphorus 3.7 2.6-4.7 mg/dL Performing Lab: see note ML - [facility] LB MAGNESIUM Reviewed date:06/20/2024 03:31:27 PM Interpretation: Performing Lab: Notes/Report: [facility] , Magnesium 1.6 1.8-2.4 mg/dL Performing Lab: see note - [facility] IRON AND TIBC Reviewed date:06/20/2024 03:31:27 PM Interpretation: Performing Lab: Notes/Report: [facility] , Iron 51.0 50.0-170.0 ug/dL Total Iron Binding Capacity 230.0 250.0-450.0 ug/dL Percent Iron Saturation 22.2 Performing Lab: see note ML - [facility] GLYCOHEMOGLOBIN A1C Reviewed date:06/20/2024 03:31:27 PM Interpretation: Performing Lab: Notes/Report: [facility] , Glycohemoglobin A1C 5.2 4.5-6.2 % ADA RECOMMENDED LIMIT 4.0 - 6.0 ADA THERAPEUTIC TARGET < 7.0 ACTION SUGGESTED > 7.0 Estimated Average Glucose 103 Performing Lab: see note ML - [facility] CBC no Diff (Hemogram) Reviewed date:01/31/2024 01:01:36 PM Interpretation: Performing Lab: Notes/Report: [facility] , White Blood Count 7.2 4.0-11.0 [...] fL Performing Lab: see note ML - [facility] VITAMIN D 25 [place] Reviewed date:01/31/2024 01:44:22 PM Interpretation: Performing Lab: Notes/Report: [facility] , Vitamin D 37.4 <20 ng/mL Vit D deficient 20-<30 ng/mL Vit D insufficient 30-100 ng/mL Vit D sufficient >100 ng/mL Potential Toxicity Performing Lab: see note ML - [facility] LB URINE T PROTEIN CREAT RATIO Reviewed date:02/01/2024 08:16:19 PM Interpretation: Performing Lab: Notes/Report: [facility] , Total Protein Urine Random 22.9 <=11.9 mg/dL Creatinine Urine Random 106.23 20.00-30 0.00 mg/dL Protein Creatinine Ratio Urine 0.22 Performing Lab: see note ML - [facility] URIC ACID SERUM Reviewed date:01/31/2024 01:01:36 PM Interpretation: Performing Lab: Notes/Report: [facility] , Uric Acid 7.6 2.6-6.0 mg/dL Performing Lab: see note ML - [facility] RENAL FUNCTION PANEL Reviewed date:01/31/2024 01:01:36 PM Interpretation: Performing Lab: Notes/Report: [facility] , Sodium 144 136-145 mmol/L Potassium [...] g/dL Performing Lab: see note ML - [facility] MAGNESIUM Reviewed date:01/31/2024 01:01:36 PM Interpretation: Performing Lab: Notes/Report: [facility] , Magnesium 1.7 1.8-2.4 mg/dL Performing Lab: see note ML - [facility] Troponin I High Sensitivity Reviewed date:01/24/2024 01:26:44 PM Interpretation: Performing Lab: Notes/Report: GOLD [facility] , Troponin I High Sensitivity 11.7 4.0-51.3 pg/mL CUT-OFF POINTS HAVE BEEN ESTABLISHED BASED ON THE FOURTH UNIVERSAL DEFINITION OF MYOCARDIAL INFARCTION. THE UPPER REFERENCE LIMIT (URL) OF TROPONIN, DEFINED THE 99TH PERCENTILE OF cTnI DISTRIBUTION IN A REFERENCE POPULATION, HAS BEEN CONFIRMED THE DECISION THRESHOLD FOR [place] DIAGNOSIS. 99TH PERCENTILE = 51.4 PG/ML NOTE: HIGH-SENSITIVITY TROPONIN ASSAY IS NOT INTENDED TO BE USED IN ISOLATION BUT SHOULD BE INTERPRETED IN CONJUNCTION WITH OTHER DIAGNOSTIC AND CLINICAL INFORMATION. Performing Lab: see note ML - [facility] LB XR chest 1V Reviewed date:01/23/2024 06:00:42 PM Interpretation: Performing Lab: Notes/Report: Source Facility: [place] [address] XRay Report Signed Patient: JUSTIN SADLER MR#: [id number] : 1950 Acct:[id number] Age/Sex: 73 / F ADM Date: 01/23/24 Loc: ER Attending Dr: Ordering Physician: Holli Ocampo Date of Service: 01/23/24 Procedure(s): XR chest 1V Accession Number(s): [id number] cc: Debbie Arvizu M.D.; Holli Ocampo [place] [address] Patient Name: JUSTIN SADLER MRN: [id number] date: 1950 Sex: F Assigned Patient Location: ER Current Patient Location: ER Accession/Order Number: [id number] Exam Date: 01/23/2024 17:28 Report Date: 01/23/2024 [...] M.D. Signed By: 01/23/241754 DD/ 51 TD/TT: Accounts Payable Clerk: [place] [address] XRay Report Signed Patient: MARY SADLER SE MR#: [id number] : 1950 Acct:[id number] Age/Sex: 73 / F ADM Date: 01/23/24 Loc: ER Attending Dr: Ordering Physician: Holli Ocampo Date of Service: 01/23/24 Procedure(s): XR chest 1V Accession Number(s): [id number] cc: Debbie Arvizu M.D. ; Holli Ocampo [address] [address] Patient Name: JUSTIN SADLER MRN: [id number] date: 1950 Sex: F Assigned Patient Location: ER Current Patient Loca tion: ER Accession/Order Numb er: [id number] Exam Date: 17:28 Report Date: 01/23/2024 17:52 [...] M.D. Signed By: 01/23/241754 DD/ 51 TD/TT: Accounts Payable Clerk: Troponin I High Sensitivity Reviewed date:01/23/2024 06:00:42 PM Interpretation: Performing Lab: Notes/Report: [facility] , Troponin I High Sensitivity 11.0 4.0-51.3 pg/mL CUT-OFF POINTS HAVE BEEN ESTABLISHED BASED ON THE FOURTH UNIVERSAL DEFINITION OF MYOCARDIAL INFARCTION. THE UPPER REFERENCE LIMIT (URL) OF TROPONIN, DEFINED THE 99TH PERCENTILE OF cTnI DISTRIBUTION IN A REFERENCE POPULATION, HAS BEEN CONFIRMED THE DECISION THRESHOLD FOR [place] DIAGNOSIS. 99TH PERCENTILE = 51.4 PG/ML NOTE: HIGH-SENSITIVITY TROPONIN ASSAY IS NOT INTENDED TO BE USED IN ISOLATION BUT SHOULD BE INTERPRETED IN CONJUNCTION WITH OTHER DIAGNOSTIC AND CLINICAL INFORMATION. Performing Lab: see note ML - [facility] Prothrombin Time INR Reviewed date:01/23/2024 05:40:30 PM Interpretation: Performing Lab: Notes/Report: [facility] , Prothrombin Time 10.6 9.0-11.6 sec INR 1.00 DESIRED INR: 2.0-3.0 CONDITIONS NOT LISTED BELOW 2.5-3.5 FOR PROSTHETIC HEART VALVE REPLACEMENT 2.5-3.5 RECURRENT THROMBOSIS Performing Lab: see note [facility] PROF 14(COMP METB) Reviewed date:01/23/2024 06:00:42 PM Interpretation: Performing Lab: Notes/Report: [facility] , Sodium 143 136-145 mmol/L Potassium [...] Ratio 0.8 Performing Lab: see note - [facility] POTASSIUM Reviewed date:01/24/2024 01:26:44 PM Interpretation: Performing Lab: Notes/Report: [facility] , Potassium 5.5 3.5-5.1 mmol/L Performing Lab: see note [facility] LB XR EYE FOREIGN BODY Reviewed date:01/23/2024 05:32:21 PM Interpretation: Performing Lab: Notes/Report: XR EYE FOREIGN BODY 11/23/2023 12:54 PM STAT PRE MRI ORBITS- MR LUMBAR SPINE WO CONTRAST Reviewed date:01/23/2024 05:32:21 PM Interpretation: Performing Lab: Notes/Report: MR LUMBAR SPINE WO CONTRAST 11/23/2023 12:56 PM ORDER IN EPIC CT int auditory canals w/o c on Reviewed date:08/15/2024 04:17:45 PM Interpretation: Performing Lab: Notes/Report: Source Facility: [place] [address] [place] [address] CT Scan Report Signed Patient: JUSTIN SADLER MR#: [id number] : 1950 Acct:[id number] Age/Sex: 74 / F ADM Date: 08/15/24 Loc: CT Attending Dr: Lakshmi Mathews M.D. Ordering Physician: Lakshmi Mathews M.D. Date of Service: 08/15/24 Procedure(s): CT int auditory canals w/o con Accession Number(s): [id number] cc: Debbie Arvizu M.D. [place] [address] Patient Name: JUSTIN SADLER MRN: [id number] date: 1950 Sex: F Assigned Patient Location: CT Current Patient Location: CT Accession/Order Number: [id number] Exam Date: 08/15/2024 14:47 Report Date: 08/15/2024 14:51 At the request of: LAKSHMI MATHWES MD Procedure: CT int auditory canals w/o [...] Gutierrez M.D. 08/15/2024 2:51 PM Dictation Location: [place] [address] Electronically authenticated by: [id number] Y Date: 08/15/2024 14:51 Dictated By: Victor Manuel Gutierrez M.D. Signed By: 08/15/24 1454 DD/ 145 TD/TT: Accounts Payable Clerk: [place] [address] CT Scan Report Signed Patient: MARY SADLER SE MR#: [id number] : 1950 Acct:[id number] Age/Sex: 74 / F ADM Date: 08/15/24 Loc: CT Attending Dr: Lakshmi Mathews M.D. Ordering Physician: Lakshmi Mathews M.D. Date of Service: 08/15/24 Procedure(s): CT int auditory canals w/o con Accession Number(s): [id number] cc: Debbie Arvizu M.D. [place] [id number] Patient Name: JUSTIN SADLER MRN: [id number] date: 1950 Sex: F Assigned Patient Location: CT Current Patient Loca tion: CT Accession/Order Irwin er: [id number] Exam Date: 08/15/2024 14:47 Report Date: 08/15/2024 14:51 At the request of: LAKSHMI MATHEWS MD Procedure: CT int auditory canals w/o con CT int auditory sharon ls w/o con 08/15/2024 2:16 PM SIGNS AND SYMPTOMS: Cerebral Spinal Flui d Otorrhea COMPARISON: None. TECHNIQUE: Using a multi-detector scanner, 0.5 x 0.3 mm axial scans of the temporal bone were acquired using a high-resolution bone technique. The scans were retrospectively targeted for right and left side, and subsequently reconstructed in the coronal and Sagittal plane, again targeting the right and left sides individua lly, as well as the entire skull base. [...] vestibular and cochlear aqueduct are within normal limits . The facial nerve canal is within normal limits. The semicircular canals are within normal limits. The internal auditory canal is within normal limits. The internal auditor y canal is within normal limits. There is a small right mastoid effusion. Th ere is a tympanostomy on the right. The carotid canal and jugular foramen are within normal limits. The temporomandibular joint is within normal limits. Left: The middle ear cleft is within normal limits and the ossicles are within normal limits. The cochlea, vestibule, vestibular and cochlear aqueduct are within normal limits . The facial nerve canal is within normal limits. The semicircular canals are within normal limits.. The internal auditory canal is within normal limits.. The internal auditor y canal and mastoid air cells are within normal limits. The carotid canal an d jugular foramen are within normal limits. The temporomandibular eduin int is intact. C T/CT int auditory canals w/o con IMPRESSION: There is a small rig ht mastoid effusion. A tympanostomy tube is present on the right. The temporal bone structures are otherwise within normal limits. The tegmen is intact bilaterally. Impression dictated by: Victor Manuel Gutierrez M.D. 08/15/2024 2:51 PM Dictation Location: [place] [address] Electronically authenticated by: [id number] Y Date: 08/15/2024 14:51 Dictated By: Victor Manuel Gutierrez M.D. Signed By: 08/15/24 1454 DD/ 1451 TD/TT: Accounts Payable Clerk: [facility] Reviewed date:08/17/2024 08:13:14 PM Interpretation: Performing Lab: Notes/Report: [facility] , Aerobic Culture See Below For Report Aerobic Culture Aerobic Culture Specimen has been received and testing has been initiated. Aerobic Culture Aerobic Culture Aerobic Culture Aerobic Culture No growth in 36 - 48 hours. Aerobic Culture Aerobic Culture Performed at: [facility] Aerobic Culture A[facility] [address] [place] [id number] Aerobic Culture Aerobic Culture [employer] Crewmember: Serena Medina PhD, Phone: [phone] Aerobic Culture Performing Lab: see note - [facility] LB SEE REPORT - Plant Care Worker Id information not found for OBX-specific assistant producer legend [facility] Reviewed date:08/17/2024 08:13:14 PM Interpretation: Performing Lab: Notes/Report: [facility] , Anaerobic Culture See Below For Report Ana[facility] Anaerobic Culture Specimen has been received and testing has been initiated. Anaerobic Culture Anaerobic Culture Anaerobic Culture Anaerobic Culture No anaerobes recovered. Anaerobic Culture Performing Lab: see note - [facility] Reason For Referral Diagnosis 1 Chronic kidney disea se (CKD), stage III (moderate) (N18.30) Referral Organization [facility] Referring Provider First Name Dontrell Referring Provider Last Name [facility] Referring Provider [facility] icicheryl Referred Provider Lizette Schaffer Referred Provider Specialty Nephrology Referral Priority Routine Diagnosis 1 Spinal stenosis, lum bar region with neurogenic claudication (M48.062) Referral Organization [facility] Referring Provider First Name Dontrell Referring Provider Last Name Nolberto Referring Provider [facility] icicheryl Referred Provider Pain Management, TB Referred Provider Specialty Pain Medicin e Referral Priority Routine Diagnosis 1 Bladder prolapse, fe male, acquired (N81.10) Referral Organization [facility] Referring Provider First Name Dontrell Referring Provider Last Name Nachonicki [facility]erring Provider [facility] Referred Provider Ladonna Malagon Referred Provider Specialty Urology Referral Priority Routine Diagnosis 1 Encounter for examin ation of ears and hearing without abnormal findings (Z01.10) Referral Organization [facility] Referring Provider First Name Dontrell Referring Provider Last Name nicki Referring Provider [facility] Referred Provider Lkashmi Mathews Referred Provider Specialty Otolaryngolo gy Referral Priority Routine Reason Patient would like Genia muhammad office please! Diagnosis 1 Hyperproteinemia (E8 8.09) Referral Organization [facility] Referring Provider First Name Dontrell Referring Provider Last Name Nacho Referring Provider [facility] Referred Organization [facility] Referred Provider Beatriz Campos Referred Address [address] [place] [address],[address],[place], [place],[address], Referred Provider Specialty Hematology/O ncology Referral Priority Routine Diagnosis 1 Rectal bleeding (K62 .5) Referral Organization [facility] Referring Provider First Name Dontrell Referring Provider Last Name Nachonicki Referring Provider [facility] Referred Provider Rigoberto Tam Referred Provider Specialty Gastroentero logy Referral Priority Routine Diagnosis 1 Open wound of leg, l eft, subsequent encounter (S81.954S) Referral Organization [facility] Referring Provider First Name Dontrell Referring Provider Last Name Nachonicki Referring Provider [facility] Referred Provider Isael Mart Referred Provider Specialty Wound Care Referral Priority Routine Medications Medication SIG (Take, Route, Frequency, Duration) Notes Start Date End Date Status Albuterol Sulfate (2.5 MG/3ML) 0.083% Inhale one vial in nebulizer 4 times a day. Active Levothyroxine Sodium 88 MCG 1 tablet in the morning on an empty stomach Orally Once a day for 90 days Active Albuterol Sulfate HFA 108 (90 Base) MCG/ACT 2 puffs as needed for SOB Inhalation every 4 hrs for 30 days Active Liothyronine Sodium 25 MCG TAKE 1 AND 1/ 2 TABLETS BY MOUTH ONCE A DAY ON AN EMPTY STOMACH for 90 Active Aspirin 81 81 MG 1 tablet Orally Once a day Active Cefdinir 300 MG 2 capsule Orally onc e a day for 10 days 08/08/2024 Active Vitamin D Active Clotrimazole-Betamethasone 1-0.05 % APPLY SMALL AMOUNT TO AFFECTED AREA EXTERNALLY TWICE A DAY *USE SPARINGLY* for 30 days Active Yupelri 175 MCG/3ML 3 mL Inhalation Once a day 08/03/2024 Active Doxycycline Monohydrate 100 MG 1 capsule Orally bid for 10 days 08/08/2024 Active Doxycycline Monohydrate 100 MG 1 capsule Orally bid for 14 days 09/04/2024 Active hydrALAZINE HCl 100 MG TAKE 1 TABLET BY MOUTH THREE TIMES A DAY FOR 90 DAYS for 90 Active Cephalexin 500 MG 2 tabs Orally bid fo r 10 days 09/04/2024 Active Azelastine HCl 137 MCG/SPRAY INSTILL 1 S PRAY IN EACH NOSTRIL TWICE DAILY FOR 30 DAYS for 90 PRN Active Lovastatin 20 MG TAKE 1 TABLET BY ETHEL TH EVERY DAY AT NIGHT for 90 Active Bumetanide 1 MG 1 tablet Orally Once a day 08/03/2024 Active Magnesium 400 MG 1 capsule Orally onc e daily 08/03/2024 Active Cefdinir 300 MG 2 capsule Orally onc e a day for 14 days 09/04/2024 Active Calcium 600 MG 1 tablet with meals Orally Twice a day 07/29/2023 Active Pantoprazole Sodium 40 MG 1 tablet Orall y twice daily for 30 days Active Carvedilol 12.5 MG 1 tablet with food Orally Twice a day for 90 days Active Sodium Polystyrene Sulfonate - as directed Orally Active Lisinopril 10 MG 1 tablet Orally [...] Status W/U Status Risk Notes Problem Hyperkalemia (83306507) Hyperkalemia (E87.5) Active confirmed Problem 907544056 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) Active confirmed Problem 84799387 Sick sinus syndrome (I49.5) Active confirmed Problem Chronic kidney disease stage 3 (disorder) (500039728) Chronic kidney disease, stage 3 (moderate) (N18.3) Active confirmed Problem 01983319 Bradycardia, unspecified (R00.1) Active confirmed Problem 886297662 Morbid obesity (E66.01) Active confirmed Problem COPD - Chronic obstructive pulmonary disease (50365105) COPD (chronic obstructive pulmonary disease) (J44.9) Active confirmed Problem Hypothyroidism (94271412) Hypothyroidism (E03.9) Active confirmed Problem Coronary artery disease (43216929) CAD (coronary artery disease) (I25.10) Active confirmed Problem Spinal stenosis (57133042) Spinal stenosis (M48.00) Active confirmed Problem Chronic kidney disease (336225230) CKD (chronic kidney disease) (N18.9) Active confirmed Problem Cardiac pacemaker in situ (602392067) Pacemaker (Z95.0) Active confirmed Problem Dizziness (712844389) Dizziness (R42) Active confirmed Problem Transient ischemic attack (197534515) TIA (transient ischemic attack) (G45.9) Active confirmed Problem Migraine (63598023) Migraine (G43.909) Active c onfirmed Problem 06812376 Chronic obstructive pulmonary disease, unspecified COPD type (J44.9) Active confirmed Problem Pain in right foot (923470356908646) Right foot pain (M79.671) Active confirmed Problem Serous otitis media (54139762) Serous otitis media (H65.90) Active confirmed Problem Cellulitis (182592504) Cellulitis (L03.90) Active confirmed Problem Diverticulitis (78552994) Diverticulitis (K57.92) Active confirmed Problem Hyperproteinemia (46500643) Hyperproteinemia (E88.09) Active confirmed Problem Tubular adenoma (041055925) Tubular adenoma (D36.9) Active confirmed Problem Lumbar spondylosis (175894769) Lumbar spondylosis (M47.816) Active confirmed Problem Ocular migraine (07785521) Ocular migraine (G43.109) Active confirmed Problem 843756807 Multiple pulmona ry nodules (R91.8) Active confirmed Problem Midline cystocele (660834535) Bladder prolapse, female, acquired (N81.10) Active confirmed Problem Lumbosacral spondylosis (277841629) Lumbosacral spondylosis (M47.817) Active confirmed Problem Anemia of chronic renal failure (88405709) Anemia due to stage 3 chronic kidney disease (D63.1) Active confirmed Problem Essential hypertension (17586082) BP (high blood pressure) (I10) Active confirmed Problem 91642163 Pure hypercholesterolem ia, unspecified (E78.00) Active confirmed Problem Secondary pulmonary hypertension (58907737) Other secondary pulmonary hypertension (I27.29) Active confirmed Problem Pulmonary hypertension (92036507) Pulmonary hypertension (I27.20) Active confirmed Problem Neurogenic claudication (231266823) Spinal stenosis, lumbar region with neurogenic claudication (M48.062) Active confirmed Problem Malnutrition of mild degree ([place]: 75% to less than 90% of standard weight) (60256121) Mild protein malnutrition (E44.1) Active confirmed Problem 316588961 COVID-19 (U07.1) Active confirmed Problem Body mass index 40+ - morbidly obese (901014747) Body mass index [BMI] 50.0-59.9, adult (Z68.43) Active confirmed Problem Chronic kidney disease stage 3 (disorder) (178591957) Chronic kidney disease (CKD), stage III (moderate) (N18.30) Active confirmed Problem 800551185 Other ventricula r tachycardia (I47.29) Active confirmed Problem 909039386 Other supraventricular tachycardia (I47.19) Active confirmed Vital Signs Heart Rate 76 /min 11/23/2023 Temperature 98.0 degrees Fahrenheit 06/01/2024 Respiratory Rate 18 /min 11/23/2023 Oximetry 97 % 11/23/2023 Blood pressure diastolic 82 mm Hg 09/04/2024 Height 65 in 09/04/2024 Blood pressure systolic 142 mm Hg 09/04/2024 Weight 287.4 lbs 09/04/2024 BMI 47.82 kg/m2 09/04/2024 Encounters Encounter Location Date Provider Diagnosis [facility] [address] [place] [address] 09/30/2023 Dontrell Arvizu Chronic kidney disea se (CKD), stage III (moderate) N18.[address] [address] 10/04/2023 Dontrell Hoy COPD (chronic obstructive pulmonary disease) J44.9 [facility] [address] [place] [address] 01/25/2024 Dontrell Arvizu [address] [address] 01/31/2024 Dontrell Griffithy Spinal stenosis, lum bar region with neurogenic claudication M48.[address] [address] 02/01/2024 Dontrell Griffithy [address] [address] 02/21/2024 Dontrell Griffithy Bladder prolapse, female, acquired N81.[address] [address] 03/11/2024 Dontrell Arvizu [address] [address] 04/05/2024 Dontrell Hoy COPD (chronic obstructive pulmonary disease) J44.9 and Right foot pain M79.671 [facility] [address] [place] [address] 04/24/2024 Dontrell Griffithy Encounter for examination of ears and hearing without abnormal findings Z01.[address] [address] 05/31/2024 Dontrell Hoy Other fatigue R53.83 ; Other abnormal glucose R73.09 ; Pure hypercholesterolemia, unspecified E78.00 and Encounter for screening for malignant neoplasm of colon Z12.11 [place] [address] [facility] [place] [address] 06/08/2024 Dontrell Hoy [facility] [address] [facility] [place] [address] 06/20/2024 Dontrell Hoy Hypothyroidism E03.9 [facility] [address] [facility] [place] [address] 06/22/2024 Dontrell Hoy Rectal bleeding K62. 5 [facility] [address] [facility] [place] [address] 06/22/2024 Dontrell Hoy Hyperproteinemia E88 .09 [facility] [address] [facility] [place] [address] 07/14/2024 Dontrell Hoy [facility] [address] [facility] [place] [address] 08/11/2024 Dontrell Hoy Contusion of head S00.93XA and Contusion of leg, left S80.12XA [facility] [address] [facility] [place] [address] 08/15/2024 Dontrell Hoy [facility] [address] [facility] [place] [address] 08/28/2024 Dontrell Hoy [facility] [address] [facility] [place] [address] 09/04/2024 Dontrell Hoy Open wound of leg, left, subsequent encounter S81.802D [facility] [address] [facility] [place] [address] 09/04/2024 Dontrell Griffithy [facility] [address] [place] [facility] [place] [address] 08/22/2024 Beatriz [facility] [address] [place] [facility] [place] [address] 07/25/2024 [facility] [address] [place] [address] 12/22/2023 ASC Provider [facility] [address] [place] [address] 09/21/2023 ASC Provider [facility] [address] [facility] [place] [address] 01/25/2024 Dontrell Hoy Encounter for Medica re annual wellness exam Z00.00 [facility] [address] [place] [address] 01/31/2024 Dontrell Hoy Spinal stenosis M48. 00 and Pulmonary hypertension I27.20 [facility] [facility] [address] [place] [address] 06/01/2024 Dontrell Hoy Acute bronchitis, unspecified organism J20.9 [facility] [address] [place] [address] 08/08/2024 Dontrell Hoy Cellulitis L03.90 [facility] [address] [place] [address] 08/09/2024 Dontrell Hoy Cellulitis L03.90 [facility] [address] [place] [address] 03/10/2024 Dontrell Hoy Right foot pain M79. 671 [facility] [address] [place] [address] 04/17/2024 Dontrell Hoy Serous otitis media H65.90 [facility] [address] [place] [address] 08/03/2024 Dontrell Hoy Migraine G43.909 [facility] [address] [place] [address] 09/04/2024 Dontrell Hoy Cellulitis L03.90 [facility] [address] [place] [address] 11/23/2023 Donal Jaron Multiple pulmonary nodules R91.8 ; COPD (chronic obstructive pulmonary disease) J44.9 ; History of tobacco abuse Z87.891 ; History of COVID-19 Z86.16 ; Encounter for screening for malignant neoplasm of respiratory organs Z12.2 ; Morbid obesity E66.01 and Body mass index [BMI] 45.0-49.9, adult Z68.42 [facility] [address] [address] 10/19/2023 Jose Angel Mensah Spinal stenosis, lum bar region with neurogenic claudication M48.062 ; Lumbosacral spondylosis M47.817 ; Other detention (current) drug therapy Z79.899 and Vertebrogenic low back pain M54.51 [facility] [address] [address] 01/19/2024 Bhavana Laberdee Lumbosacral spondylosis M47.817 ; Spinal stenosis, lumbar region with neurogenic claudication M48.062 ; Vertebrogenic low back pain M54.51 and USP (current) use of opiate analgesic Z79.891 [facility] [address] [address] 12/07/2023 Jose Angel Mensah Spinal stenosis, lum bar region with neurogenic claudication M48.062 ; Lumbosacral spondylosis M47.817 ; Other staff training and development manager (current) drug therapy Z79.899 and Vertebrogenic low back pain M54.51 [facility] [address] [place] [address] 12/22/2023 Jose Angel Mensah [facility] [address] [place] [address] 09/21/2023 Jose Angel Mensah Assessments Encounter Date Diagnosis (ICD Code) Assessment [...] L4-5, L5-S1 07/29/23 - In PT at [facility], limited relief from TFESI, continued pain [...] x-ray, ordered new lumbar MRI faxed to [facility] due to pacemaker 5. Consults: Has followed [...] axial pain 07/29/23 - In PT at [facility], limited relief from TFESI, continued pain [...] progressed compared to prior. Findings most prominent L4-G8lojbu there is moderate severe right neural foraminal [...] Will proceed with bilateral L4-5 transforaminal epidural [facility] surgery center. Otherwise patient recommended to continue home exercise program, stretching, core strengthening, PT OT, advised to use assist device when ambulating and advise benefits of weight loss PLAN: 1. Interventions: Bilateral L4-5 transforaminal epidural in [facility] surgery center Possible candidate for Vertiflex at adjacent segments, however I believe worsening of pain symptoms is due to disease progression at L3-4 and L4-5 levels rather than L1-2 and L2-3 Not a great Intracept candidate 2. Physical therapy: Continue PT/OT 3. Medications: OARRS checked, UDS today- appropriate Discontinue tramadol due to lack of benefit, could trial [place] versus Percocet 4. Imaging: History of lumbar [...] axial pain 07/29/23 - In PT at [facility], limited relief from TFESI, continued pain [...] progressed compared to prior. Findings most prominent L4-E0otnyn there is moderate severe right neural foraminal [...] Will proceed with bilateral L4-5 transforaminal epidural [facility] outpatient surgery center. Otherwise patient recommended to continue home exercise program, stretching, core strengthening, PT OT, advised to use assist device when ambulating and advise benefits of weight loss PLAN: 1. Interventions: Bilateral L4-5 transforaminal epidural in [facility] outpatient surgery center Possible candidate for Vertiflex at adjacent segments, however I believe worsening of pain symptoms is due to disease progression at L3-4 and L4-5 levels rather than L1-2 and L2-3 Not a great Intracept candidate 2. Physical therapy: Continue PT/OT 3. Medications: OARRS checked, UDS today- appropriate Discontinue tramadol due to lack of benefit, could trial [place] versus Percocet 4. Imaging: History of lumbar MRI from 2022 Reviewed new lumbar imaging with patient as [...] vaporizer to help keep the drainage moist. Hmwu-ovq-zdwnihp Nasal Saline may help the stuffy and runny nose. Use Ibuprofen and or Tylenol as needed for fever, chills, body aches or pain. Children 5 years old should not be given fttb-pcw-goultpk cough and cold medications such as guaifenesin and dextromethorphan. If you're over age 5, you may try mmat-bmh-drxvgje cold medications such as guaifenesin and dextromethorphan, [...] - L03.90) 08/09/2024 Cellulitis (ICD-10 - L03.90) 09/04/2024 Cellulitis (ICD-10 - L03.90) 01/19/2024 Lumbosacral spondylosis [...] - K62.5) 06/22/2024 Hyperproteinemia (ICD-10 - E88.09) 08/11/2024 Contusion of head (ICD-10 - S00.93XA) 09/04/2024 Open wound of leg, left, subsequent encounter (ICD-10 - S81.802D) 08/11/2024 Contusion of leg, left (ICD-10 - S80.12XA) 05/31/2024 Other abnormal glucose (ICD-10 - R73.09) 04/05/2024 Right foot pain (ICD-10 - M79.671) 01/19/2024 Spinal stenosis, lumbar region with neurogenic claudication (ICD-10 - M48.062) - Dr. Mensah patient - 1. Discontinue tramadol due to lack of benefit, could trial [place] versus Percocet 2. Continue home exercise program, [...] progressed compared to prior. 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 Findings most prominent L4-Y4dwemw there is moderate severe right neural foraminal [...] Will proceed with bilateral L4-5 transforaminal epidural [facility] outpatient surgery center. Otherwise patient recommended to continue home exercise program, stretching, core strengthening, PT OT, advised to use assist device when ambulating and advise benefits of weight loss PLAN: 1. Interventions: Bilateral L4-5 transforaminal epidural in [facility] outpatient surgery center Possible candidate for Vertiflex at adjacent segments, however I believe worsening of pain symptoms is due to disease progression at L3-4 and L4-5 levels rather than L1-2 and L2-3 Not a great Intracept candidate 2. Physical therapy: Continue PT/OT 3. Medications: OARRS checked, UDS today- appropriate Discontinue tramadol due to lack of benefit, could trial [place] versus Percocet 4. Imaging: History of lumbar [...] L4-5, L5-S1 07/29/23 - In PT at [facility], limited relief from TFESI, continued pain [...] x-ray, ordered new lumbar MRI faxed to [facility] due to pacemaker 5. Consults: Has followed [...] of COVID-19 (ICD-10 - Z86.16) 10/19/2023 Other detention (current) drug therapy (ICD-10 - Z79.899) This [...] L4-5, L5-S1 07/29/23 - In PT at [facility], limited relief from TFESI, continued pain [...] x-ray, ordered new lumbar MRI faxed to [facility] due to pacemaker 5. Consults: Has followed [...] axial pain 07/29/23 - In PT at [facility], limited relief from TFESI, continued pain [...] progressed compared to prior. Findings most prominent L4-X4yrmie there is moderate severe right neural foraminal [...] Will proceed with bilateral L4-5 transforaminal epidural [facility] outpatient surgery center. Otherwise patient recommended to continue home exercise program, stretching, core strengthening, PT OT, advised to use assist device when ambulating and advise benefits of weight loss PLAN: 1. Interventions: Bilateral L4-5 transforaminal epidural in [facility] outpatient surgery center Possible candidate for Vertiflex at adjacent segments, however I believe worsening of pain symptoms is due to disease progression at L3-4 and L4-5 levels rather than L1-2 and L2-3 Not a great Intracept candidate 2. Physical therapy: Continue PT/OT 3. Medications: OARRS checked, UDS today- appropriate Discontinue tramadol due to lack of benefit, could trial [place] versus Percocet 4. Imaging: History of lumbar MRI from 2021 Reviewed new lumbar imaging with patient as above 5. Consults: Has followed with neurosurgery, not planning surgical intervention at this time, following with cardiology 6. RTC : For procedure 01/19/2024 USP (current) use of opiate analgesic (ICD-10 - [...] x-ray, ordered new lumbar MRI faxed to [facility] due to pacemaker 5. Consults: Has followed [...] CBC AUTO DIFF 05/31/2024 CULTURE WOUND 08/09/2024 CULTURE WOUND 09/04/2024 GLYCOHEMOGLOBIN A1C 05/31/2024 LIPID PROFILE 05/31/2024 PROF 14(COMP METB) 05/31/2024 MRI BRAIN WO CON 08/03/2024 US KIDNEYS BLADDER 04/22/2023 THYROID PANEL (T4/TSH/FREE T3) 4 THYROID PANEL (T4/TSH/FREE T3) 5 THYROID PANEL (T4/TSH/FREE T3) 5 Aerobic Culture 09/04/2024 Next Appt Details Provider Name:Donal Antonio, 09/26/2024 09:00:00 AM, [address] [place], [address], Provider Name:Beatriz Campos , 01/23/2025 09:30:00 AM, [address] [place], [address], Insurance Providers Payer Name Payer Address Payer Phone Subscriber Number Group Number Insured Name Patient Relationship to Insured Coverage Start Date Coverage End Date [place] [address] [place] [address] [phone] [id number] Justin Sadler Self - patient is the insured 4 [employer] MEDICARE SUPPLEMENT [address] [address] [place] [address] [id number] Justin Sadler Self - patient is the insured 8 [...] hypertension I 27.29 Surgical History Surgery Date(Month/Year) Rt Myringotomy, t-tube placement, nasal endoscopy- Dr Mathews 07/06/2024 colonoscopy 07/19/24 Lumbar/Sacral Injections- Dr. Mensah 05/13 Colonoscopy & EGD - [facility] 01/2023 PPM Implant- Biotronik 01/12/2023 Back Surgery 05/11/2021 Right Foot Surgery cataract-lens implants hysterectomy
--- OUTSIDE RECORDS SUMMARY | 2024-09-07 14:55 | XMS_ITS | Clinical Summary ---
Author Organization [facility] Address [address] [place] [address] Phone Care Team Providers Care Food Sales Clerk Name Role Phone Unavailable Primary Care Provider [...]
--- OUTSIDE RECORDS SUMMARY | 2024-09-07 14:55 | XMS_ITS | Clinical Summary ---
Author Organization [facility] Address [address] [place] [address] Care Team Providers Care Tangled Yarn Spool Straightener Name Role Phone Jeremiah Arvizu MD Primary Care Provider [phone] Allergies Active Allergy Reactions Criticality Noted Date [...] 23 Overview (10/02/2022): SOBIA=17.7 events/hour; Pranav SaO2=76%; Pfjnrg=379.0 lbs; BMI=52.7 kg/m2, Home Sleep Apnea Testing on 09/25/2022 at [facility] [place] (ventricular tachycardia) 04/29/2022 Overview (04/29/2022): Added automatically from request for surgery [id number] Clinical trial exam 04/23/2022 Overview (04/23/2022): Added automatically from request for surgery [id number] A-fib 04/21/2022 Spinal stenosis of lumbar re gion with neurogenic claudication 01/30/2022 Lower abdominal pain 01/30/2022 Spondylosis of 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 or radiculopathy 01/30/2022 Essential hypertension 01/25/2020 Chest pain 07/27/2016 Dyspnea 07/27/2016 Edema 07/27/2016 Fatigue 07/27/2016 Lightheadedness 07/27/2016 Encounters Date Type Department Care Team Description 08/25/2024 10:36 AM EDT - 08/25/2024 11:59 PM EDT Hospital Encounter [facility] [address] [place] [address] Migraine, unspecified, not intractable, without status migrainosus Discharge Disposition: Home or Self Care () 08/14/2024 3:30 PM EDT Ancillary Procedure [facility] [address] [place] [address] Adjustment and management of cardiac pacemaker 08/14/2024 12:00 PM EDT Ancillary Procedure [facility] [address] [place] [address] Adjustment and management of cardiac pacemaker 08/11/2024 Orders Only [facility] [address] [place] [address] Tian Hernández MD 08/11/2024 Orders Only [facility] [address] [place] [address] Irvin Posada MD from Last 3 Months [...] 10/24/2024 10:30 AM EDT Ancillary Procedure [facility] [address] [place] [address] 10/24/2024 11:15 AM EDT Office Visit [facility] [address] [place] [address] Irvin Posada MD [address] [place] [address] Health Maintenance Due Date Last Done Comments [...] this topic Medical Devices Implanted Type Area Manufacturing Test Technician Device Identifier Shelf Expiration Date Model / Serial / Lot Nito Bland S 60, - [id number] - [id number] Implanted:Qty : 1 on 01/12/2023 by Constantino Bullock MD at [facility] Lead Biotronik [id number] 12/12/2024 [id number] / [id number] 75 / Lead,Nito,Kaykay 53, - [id number] - [id number] Implanted:Qty : 1 on 01/12/2023 by Constantino Bullock MD at [facility] Lead [employer]otronik [id number] 12/12/2024 [id number] / [id number] 64 / Pacer [address] -T - [id number] - [id number] Implanted:Qty : 1 on 01/12/2023 by Constantino Bullock MD at [facility] Pacemaker Biotronik [id number] 06/12/2024 [id number] / [id number] 87 / Superion Ids - 10mm Implanted:Qty : 1 on 11/30/2022 by Jose Angel Mensah MD at [facility] N/A: Spine Lumbar [employer] [id number] 08/24/2026 [id number] / / [id number] Superion Ids - 12mm Implanted:Qty : 1 on 11/30/2022 by Jose Angel Mensah MD at [facility] N/A: Spine Lumbar [employer] [id number] 05/27/2027 [id number] / / [id number] Procedures Procedure Name Priority Date/Time Associated Diagnosis [...] flow voids in large cerebral vessels on P1vkwhdphn imaging. Diffusion weighted images show no evidence [...] Irvin Posada MD CV IMPLANTABLE CARDIAC DEVICE [place] OCEDURES Final Result CPACS * Cardiac device [...] Crohn's disease in her mother. Sedation: [facility] Attending Physician: Dr. Dario Calderon Qa Test Lead: Rachel Prado, Fellow Procedure Details Informed consent [...] for the entire procedure. us Natalia Kuhn CIRCULATION WORKER ENDOSCOPY PROCEDURE O RDERABLES Final Result from Last 3 Months or Most Recently Relevant to Health Maintenance Insurance MEDICARE GENERIC COMMERCIAL Care Teams Tangled Yarn Spool Straightener Relationship Specialty Start Date End Date Jeremiah Arvizu MD [address] [facility] [place] [address] PCP - General 01/26/22
--- OUTSIDE RECORDS SUMMARY | 2024-09-07 14:55 | XMS_ITS | Encounter Summary ---
Author Organization [facility] Address [address] [place] [address] Care Team Providers Care Hand Paint Mixer Name Role Phone Jeremiah Arvizu MD Primary Care Provider [phone] Encounter Details Date Type Department Care Team (Late st Contact Info) Description 02/24/2022 Orders Only [facility] [address] [place] [id number] Karolyn Werner MA Essential hypertension Social History [...] Description 10/24/2024 10:30 AM EDT Ancillary Procedure [facility] [address] [facility] [place] [address] 10/24/2024 11:15 AM EDT Office Visit [facility] [address] [place] [address] Irvin Posada MD [address] [place] [address] documented as of this encounter Visit Diagnoses Diagnosis Essential hypertension Unspecified essential hypertension documented in this encounter Care Teams Hand Paint Mixer Relationship Specialty Start Date End Date Jeremiah Arvizu MD [address] [place] [address] PCP - General 01/26/22 documented as of this encounter
== END 2024-09-07 14:53 | disposition home or self-care (01) ==
LOC: WC 14:52
PROVIDERS: PCP Family Medicine; Visit Provider Physician Assistant
DX: I87.332 Chronic venous hypertension (idiopathic) with ulcer and inflammation of left lower extremity (principal); L97.822 Non-pressure chronic ulcer of other part of left lower leg with fat layer exposed
CPT/HCPCS: A6213; G0463

== ENCOUNTER 2024-09-13 13:45 | Outpatient (OUT) | payer MEDICARE, SELFPAY ==
--- OUTSIDE RECORDS SUMMARY | 2024-09-04 05:30 | XMS_ITS ---
Author Organization [facility] [place] Address [address] [place] [address] Care Team Providers Care Electric Meter Repairer Helper Name Role Phone Dontrell Arvizu Primary Care Provider Allergies Allergen (clinical drug ingredient) Drug/Non Drug Allergy documented on EMR Reaction Allergy Type Onset Date Status Plastic Tape (uncoded) hives Allergy 023 Active fluticasone Flonase Unknown Drug Allergy Activ e Penicillin Unknown Drug Allergy Active REASON FOR VISIT leg not healing, left leg, formed scab today, seeping, Wound culture collected and sent to [facility]. Wound redressed with wound healing ointment and wrapped in coban Medications Medication SIG (Take, Route, Frequency, Duration) Notes Start Date End Date Status Vitamin D Active Yupelri 175 MCG/3ML 3 mL Inhalation Once a day 08/03/2024 Active Magnesium 400 MG 1 capsule Orally onc e daily 08/03/2024 Active Pantoprazole Sodium 40 MG 1 tablet Orall y twice daily for 30 days Active Sodium Polystyrene Sulfonate - as directed Orally Active Levothyroxine Sodium 88 MCG 1 tablet in the morning on an empty stomach Orally Once a day for 90 days Active Liothyronine Sodium 25 MCG TAKE 1 AND 1/ 2 TABLETS BY MOUTH ONCE A DAY ON AN EMPTY STOMACH for 90 Active hydrALAZINE HCl 100 MG TAKE 1 TABLET BY MOUTH THREE TIMES A DAY FOR 90 DAYS for 90 Active Lovastatin 20 MG TAKE 1 TABLET BY ETHEL TH EVERY DAY AT NIGHT for 90 Active Lisinopril 10 MG 1 tablet Orally Once a day Active Cefdinir 300 MG 2 capsule Orally onc e a day for 10 days 08/08/2024 Active Clotrimazole-Betamethasone 1-0.05 % APPLY SMALL AMOUNT TO AFFECTED AREA EXTERNALLY TWICE A DAY *USE SPARINGLY* for 30 days Active Doxycycline Monohydrate 100 MG 1 capsule Orally bid for 10 days 08/08/2024 Active Calcium 600 MG 1 tablet with meals Orally Twice a day 07/29/2023 Active Carvedilol 12.5 MG 1 tablet with food Orally Twice a day for 90 days Active Albuterol Sulfate HFA 108 (90 Base) MCG/ACT 2 puffs as needed for SOB Inhalation every 4 hrs for 30 days Active Aspirin 81 81 MG 1 tablet Orally Once a day Active Azelastine HCl 137 MCG/SPRAY INSTILL 1 S PRAY IN EACH NOSTRIL TWICE DAILY FOR 30 DAYS for 90 PRN Active Bumetanide 1 MG 1 tablet Orally Once a day 08/03/2024 Active Cefdinir 300 MG 2 capsule Orally onc e a day for 14 days 09/04/2024 Active Albuterol Sulfate (2.5 MG/3ML) 0.083% Inhale one vial in nebulizer 4 times a day. Active Doxycycline Monohydrate 100 MG 1 capsule Orally bid for 14 days 09/04/2024 Active Social History Tobacco Use: Social History [...] heavy cigarette smoker (40+/day) Vital Signs Weight 287.4 lbs 09/04/2024 Height 65 in 09/04/2024 Blood pressure systolic 142 mm Hg 09/05/19 25 Blood pressure diastolic 82 mm Hg 025 BMI 47.82 kg/m2 09/04/2024 Encounters Encounter Location Date Provider Diagnosis [facility] [address] [place] [address] 09/04/2024 Dontrell Arvizu Cellulitis L03.9 0 Assessments Encounter Date Diagnosis (ICD Code) Assessment Notes Treatment Notes Treatment Clinical Notes Section Notes 09/04/2024 Cellulitis (ICD-10 - L03.90) Plan Of Treatment Medication Medication Name Sig Start Date Stop Date Notes Cefdinir 300 MG 2 capsule Orally onc e a day for 14 days 09/04/2024 Doxycycline Monohydrate 100 MG 1 capsule Orally bid for 14 days 09/04/2024 Pending Test Test Name Order Date CULTURE WOUND 09/04/2024 Next Appt Details Provider Name:Donal Salmeron, 09/26/2024 09:00:00 AM, [address] [place], [address], Provider Name:Beatriz Campos , 01/23/2025 09:30:00 AM, [address] [place], [address], Progress Notes * Vero COLLINS MDOB:[birth year] (74 yo F)Acc No.[id number]:09/04/2024 Progress Note Patient: Vero FIELD Provider: Alanna Arvizu ([facility])MD :1950 A ge:74 Y S ex:Female Date:09/04/2024 Address:[address] [place], [place] [phone] Check In:09:26 AM ESTCheck O ut:09:51 AM EST Subjective: * Chief Complaints: * L eg not healingLeft legFormed scab todaySeepingWound culture collected and sent to [facility]. 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 Modified On:11/24/2022/U Status:confirmed J44.9 COPD (chronic obstru ctive pulmonary disease) Modified On:05/11/2023/U Status:confirmed M48.00 Spinal stenosis Modified On:05/21/2022/U Status:confirmed N18.3 Chronic kidney disea se, stage 3 (moderate) Modified On:04/23/2023/U Status:confirmed I27.20 Pulmonary hypertensi on Modified On:05/11/2023/U Status:confirmed J44.9 Chronic obstructive pulmonary disease, unspecified COPD type Modified On:11/24/2022 Status:confirmed R91.8 Multiple pulmonary n odules Modified On:11/24/2022 Status:confirmed E66.01 Morbid obesity Modified On:11/24/2022 Status:confirmed U07.1 COVID-19 Modified On:10/13/2022 Status:confirmed I25.118 Atherosclerotic hear t disease of [place] coronary artery with other forms of angina [...] On:02/22/2024 Status:confirmed M79.671 Right foot pain Modified On:03/10/2024 Status:confirmed H65.90 Serous otitis media Modified On:04/17/2024 Status:confirmed E78.00 Pure hypercholestero lemia, unspecified Modified On:05/31/2024 Status:confirmed E03.9 Hypothyroidism Modified On:06/20/2024 Status:confirmed E88.09 Hyperproteinemia Modified On:06/23/2024 Status:confirmed D36.9 Tubular adenoma Modified On:07/27/2024 Status:confirmed G43.909 Migraine Modified On:08/03/2024 Status:confirmed D63.1 Anemia due to stage 3 chronic kidney disease Modified On:08/28/2024 Status:confirmed G43.109 Ocular migraine Modified On:08/30/2024 Status:confirmed N18.9 CKD (chronic kidney disease) Modified On:08/30/2024 Status:confirmed G45.9 TIA (transient ische fran attack) Modified On:08/30/2024 Status:confirmed M47.816 Lumbar spondylosis Modified On:08/30/2024 Status:confirmed I25.10 CAD (coronary artery disease) Modified On:08/30/2024 Status:confirmed * Medical History: * Surgical History: [...] tablet with food Orally Twice a day Cefdinir 300 MG Capsule 2 capsule Orally once a day Clotrimazole-Betamethasone 1-0.05 % Cream APPLY SMALL AMOUNT TO AFFECTED AREA EXTERNALLY TWICE A DAY *USE SPARINGLY* Doxycycline Monohydrate 100 MG Capsule 1 capsule Orally bid hydrALAZINE HCl 100 MG Tablet TAKE 1 [...] Solution 3 mL Inhalation Once a day Medication List reviewed and reconciled with the patientTaking Albuterol Sulfate (2.5 MG/3ML) 0.083% Nebulization Solution [...] with food Orally Twice a day Taking Cefdinir 300 MG Capsule 2 capsule Orally once a day Taking Clotrimazole-Betamethasone 1-0.05 % Cream APPLY SMALL AMOUNT TO AFFECTED AREA EXTERNALLY TWICE A DAY *USE SPARINGLY* Taking Doxycycline Monohydrate 100 MG Capsule 1 capsule Orally bid Taking hydrALAZINE HCl 100 MG Tablet TAKE [...] Solution 3 mL Inhalation Once a day Medication List reviewed and reconciled with the patient * Allergies: P lastic Tape: hives - Side Effects - Criticality Low - Onset Date 3Penicillin: AllergyFlonase: Allergyno[Allergies Verified] Objective: * Vitals: W t:287.4lbs, Ht: 65 in, BP:142/82mm Hg, BMI:47.82Index, Ht-cm: 165.1 cm, Wt-k.36 kg. * Examination: A bdomen Exam:: L eft lower leg with cellulits - and draining. Assessment: * Assessment: 1. C marc - L03.90 (Primary) Plan: * Treatment: * Procedure Codes: * Preventive Medicine: Screenings/Counseling: B [place] ACTION PLAN Above Normal BMI Follow-up D ietary management education, guidance, and counseling F ALL RISK SCREENING Fall Risk Assessment: N o falls in the past year * * Sign off status: Completed Visit Status: C HK (Check Out) true * Provider: Alanna Arvizu ([facility])MD Date: 0 09/04/2024 Generated for Katalina gardiner/Jaycob/Rimaitting on: 0 09/13/2024 01:48 PM EDT History and Physical Notes * Examination Category Sub-Category Detail Notes Category Not es Abdomen Exam: Left lower leg with cellulits - and draining
--- OUTSIDE RECORDS SUMMARY | 2024-09-04 06:13 | XMS_ITS ---
Author Organization [facility] in [place] Address [address] [place] [address] Care Team Providers Care Pressurised Container Filler Name Role Phone Dontrell Arvizu Primary Care Provider REASON FOR VISIT cefdinir too much money Medications Medication SIG (Take, Route, Fr equency, Duration) Notes Start Date End Date Status Cephalexin 500 MG 2 tabs Orally bid for 10 days Active Encounters Encounter Location Date Provider Diagnosis [facility] [address] [place] [address] 09/04/2024 Dontrell Arvizu Plan Of Treatment Medication Medication Name Sig Start Date Stop Date Notes Cephalexin 500 MG 2 tabs Orally bid for 10 days 09/04/2024 Next Appt Details Provider Name:Donal Salmeron, 09/26/2024 09:00:00 AM, [address] [place], [address], Provider Name:Beatriz Campos , 01/23/2025 09:30:00 AM, [address] [place], [address], Progress Notes * Vero COLLINS MDOB:[birth year] (74 yo F)Acc No.[id number]:09/04/2024 Patient: Mikki RANDALLVero :1950 A ge:74 Y S ex:Female Address:[address] [place] [address], [place], [address] * Refills Start Cephalexin Tablet, 500 MG, Orally, 40 Tablet, 2 tabs, bid, 10 days * true * Date: Generated for Katalina gardiner/Jaycob/Joleen on: 0 09/13/2024 01:48 PM EDT
--- OUTSIDE RECORDS SUMMARY | 2024-09-11 13:30 | XMS_ITS | Encounter Summary ---
Author Organization [facility] Address [address] [place] [address] Care Team Providers Care Commissioning Editor Name Role Phone Jeremiah Arvizu MD Primary Care Provider [phone] Reason for Visit * Reason Comments Ear Problem Follow up CT Tempora l TBH Encounter Details Date Type Department Care Team (Late st Contact Info) Description 09/11/2024 1:30 PM EDT Office Visit [facility] [address] [facility] [address] [place] [address] Lakshmi Viramontes MD [address] [facility] [address] [place] [address] ETD (Eustachian tube dysfunction), right (Primary Dx); Chronic mastoiditis, right Social History Tobacco Use Types Packs/Day Years [...] Sign Reading Time Taken Comments Blood Pressure 104/65 09/11/2024 1:21 PM EDT Pulse 84 09/11/2024 1:21 PM EDT Temperature - - Respiratory Rate - - Oxygen Saturation - - Inhaled Oxygen Concentration - - Weight 133 kg (294 lb) 09/11/2024 1:21 PM EDT Height 162.6 cm (5' 4 ) 09/11/2024 1:21 PM EDT Body Mass Index 50.46 09/11/2024 1:21 PM EDT documented in this encounter Progress Notes * Lakshmi Viramontes MD - 09/11/2024 1:30 PM EDT Subjective Patient ID: Vero Sadler is a 74 y.o. female who presents for Ear Problem (Follow up CT TemporalTBH ) CT reviewed and there is no tegmen defect. Note made of a small amount of RT mastoid fluid. Pt alsohad an MRI brain since last seen and note made of mastoid fluid on the MRI No family history on file. Active Ambulatory Problems Diagnosis Date Noted A-fib ([facility]) 04/21/2022 Chest pain 07/27/2016 CKD (chronic kidney disease) stage 4, GFR 15-29 ml/min ([facility]) 01/26/2024 Clinical trial exam 04/23/2022 Dyspnea 07/27/2016 Edema 07/27/2016 Essential hypertension 01/25/2020 Fatigue 07/27/2016 Hyperkalemia 01/26/2024 Lightheadedness 07/27/2016 Lower abdominal pain 01/30/2022 Nonsustained paroxysmal ventricular tachycardia (HCC) 11/30/2022 Obstructive sleep apnea syndrome 10/02/2022 Other secondary pulmonary hypertension ([facility]) 12/15/2022 Secondary hyperparathyroidism ([facility]) 01/26/2024 Spinal stenosis of lumbar region with neurogenic claudication 01/30/2022 Spondylosis of lumbosacral region without myelopathy or radiculopathy 01/30/2022 Symptomatic bradycardia 01/01/2023 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 VT (ventricular tachycardia) ([facility]) 04/29/2022 Aspirin long-term use 05/09/2024 CAD (coronary artery disease) 05/09/2024 Chronic obstructive pulmonary disease (HCC) 05/09/2024 Former smoker 05/09/2024 History of colon polyps 05/09/2024 History of tobacco abuse 05/09/2024 Hypercholesterolemia 05/09/2024 Hypothyroidism 05/09/2024 Kidney stones 05/09/2024 Morbid obesity ([facility]) 05/09/2024 Multiple pulmonary nodules 05/09/2024 Stage 3a chronic kidney disease ([facility]) 01/31/2024 Status post lumbar spine operation 05/09/2024 Stress incontinence, female 05/09/2024 Intrinsic sphincter deficiency (ISD) 09/11/2024 Resolved Ambulatory Problems Diagnosis Date Noted No Resolved Ambulatory Problems Past Medical History: Diagnosis Date Ear problems Past Surgical History: Procedure Laterality Date CATARACT [...] to visit. Objective Last Recorded Vitals Vitals: 09/11/24 1321 BP: 104/65 Pulse: 84 ENT Physical Exam Constitutional Appearance: patient appears well-developed, well-nourished and well-groomed, Communication/Voice: communication appropriate for developmental age; vocal quality normal; Ear Ear comments: RT - TIP&P, dry Assessment/Plan Diagnoses and all orders for this visit: ETD (Eustachian tube dysfunction), right Chronic mastoiditis, right CT very reassuring that heavy RT otorrhea after tube was placed was not CSF. Mastoid fluid is expected after OME in an adult and can last several months. It will resolve without tx documented in this encounter Plan of Treatment Upcoming Encounters Date Type Department Care Team ([facility] st Contact Info) Description 09/11/2025 10:20 AM EDT Office Visit [facility] 112 [facility] [address] [place] [address] Lakshmi Viramontes MD 112 [facility] [address] [place] [address] documented as of this encounter Visit Diagnoses Diagnosis ETD (Eustachian tube dysfunction), right- Primary Chronic mastoiditis, right documented in this encounter Care Teams Commissioning Editor Relationship Specialty Start Date End Date Jeremiah Arvizu MD [address] [place] [address] PCP - General Family Medicine 08/02/24 documented as of this encounter
--- OUTSIDE RECORDS SUMMARY | 2024-09-13 13:47 | XMS_ITS | Clinical Summary ---
Author Organization [facility] Address [address] [place] [address] Phone Care Team Providers Care Fruit Packer Name Role Phone Unavailable Primary Care Provider [...]
--- OUTSIDE RECORDS SUMMARY | 2024-09-13 13:47 | XMS_ITS | Encounter Summary ---
Author Organization [facility] Address [address] [place] [address] Care Team Providers Care Regional Office Coordinator Name Role Phone Jeremiah Arvizu MD Primary Care Provider [phone] Encounter Details Date Type Department Care Team (Late st Contact Info) Description 08/04/2022 Community Orders [facility] 1,2,3 [address] [place] [address] Jose Angel Catherine MD [address] [place] [address] Social History Tobacco Use Types Packs/Day [...] Description 10/24/2024 10:30 AM EDT Ancillary Procedure [facility] [address] [place] [address] 10/24/2024 11:15 AM EDT Office Visit [facility] [address] [place] [address] Irvin Posada MD [address] [place] [address] documented as of this encounter Visit Diagnoses Not on filedocumented in this encounter Care Teams Regional Office Coordinator Relationship Specialty Start Date End Date Jeremiah Arvizu MD [address] [facility] [address] [address] PCP - General 01/26/22 documented as of this encounter
--- OUTSIDE RECORDS SUMMARY | 2024-09-13 13:47 | XMS_ITS | Encounter Summary ---
Author Organization [facility] Address [address] [facility] [place] [address] Care Team Providers Care Supervisor Shuttle Fitting Name Role Phone Jeremiah Arvizu MD Primary Care Provider + Jeremiah Arvizu MD Primary Care Provider + Encounter Details Date Type Department Care Team ([facility] Contact Info) Description 06/23/2024 Orders Only [facility] 112 [facility] [address] [place] [address] Jeremiah Arvizu MD [address] [facility] [place] [address] Social History Tobacco Use Types Packs/Day Years [...] Department Care Team (Late Contact Info) Description 09/11/2025 10:20 AM EDT Office Visit [facility] [address] [facility] [address] [place] [address] Lakshmi Viramontes MD [address] [facility] [address] [place] [address] documented as of this encounter Procedures Procedure Name Priority Date/Time Associated Diagnosis Comments SCANNED LABS Routine 06/20/2024 8:24 AM EDT documented in this encounter Results * SCANNED LABS (06/20/2024 8:24 AM EDT) us Jeremiah Arvizu MD LAB CHG PERFORMABLES Final Resu lt documented in this encounter Visit Diagnoses Not on filedocumented in this encounter Care Teams Supervisor Shuttle Fitting Relationship Specialty Start Date End Date Jeremiah Arvizu MD PCP - General Family Medicine 05/09/24 08/01/24 [place] [address] [place] [address] PCP - General Family Medicine 08/02/24 documented as of this encounter
--- OUTSIDE RECORDS SUMMARY | 2024-09-13 13:47 | XMS_ITS | Clinical Summary ---
Author Organization [facility] Address [address] [place] [address] Care Team Providers Care Library Acquisitions Technician Name Role Phone Jeremiah Avrizu MD Primary Care Provider Allergies Active Allergy Reactions Criticality Noted Date [...] 23 Overview (10/02/2022): SOBIA=17.7 events/hour; Pranav SaO2=76%; Esdhou=195.0 lbs; BMI=52.7 kg/m2, Home Sleep Apnea Testing on 09/25/2022 at [facility] [place] (ventricular tachycardia) 04/29/2022 Overview (04/29/2022): Added automatically from request for surgery [id number] Clinical trial exam 04/23/2022 Overview (04/23/2022): Added automatically from request for surgery [id number] A-fib 04/21/2022 Spinal stenosis of lumbar re gion with neurogenic claudication 01/30/2022 Lower abdominal pain 01/30/2022 Spondylosis of 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 or radiculopathy 01/30/2022 Essential hypertension 01/25/2020 Chest pain 07/27/2016 Dyspnea 07/27/2016 Edema 07/27/2016 Fatigue 07/27/2016 Lightheadedness 07/27/2016 Encounters Date Type Department Care Team Description 08/25/2024 10:36 AM EDT - 08/25/2024 11:59 PM EDT Hospital Encounter [facility] [address] [place] [address] Migraine, unspecified, not intractable, without status migrainosus Discharge Disposition: Home or Self Care () 08/14/2024 3:30 PM EDT Ancillary Procedure [facility] [address] [place] [address] Adjustment and management of cardiac pacemaker 08/14/2024 12:00 PM EDT Ancillary Procedure [facility] [address] [place] [address] Adjustment and management of cardiac pacemaker 08/11/2024 Orders Only [facility] [address] [place] [address] Tian Hernández MD 08/11/2024 Orders Only [facility] [address] [place] [address] Irvin Posada MD from Last 3 Months [...] place to sleep or slept in a intermediate (including now)? No 01/05/2023 Hunger Vital Sign [...] 10/24/2024 10:30 AM EDT Ancillary Procedure [facility] [address] [place] [address] 10/24/2024 11:15 AM EDT Office Visit [facility] [address] [place] [address] Irvin Posada MD [address] [place] [address] Health Maintenance Due Date Last Done Comments [...] 01/04/2021, 12/17/2020, Additional history exists Influenza Vaccine (#1) 2024 Colonoscopy 02/09/2033 02/09/2023, 01/14, 07/06/2018 Colorectal [...] this topic Medical Devices Implanted Type Area Flat Folding Machine Operator Device Identifier Shelf Expiration Date Model / Serial / Lot Nito Bland S 60, - [id number] - [id number] Implanted:Qty : 1 on 01/12/2023 by Constantino Bullock MD at [facility] [employer] [id number] 12/12/2024 [id number] / [id number] / Lead,Nito,Kaykay 53, - [id number] - [id number] Implanted:Qty : 1 on 01/12/2023 by Constantino Bullock MD at [facility] [employer] [id number] 12/12/2024 [id number] / [id number] 64 / Pacer [address] -T - [id number] - [id number] Implanted:Qty : 1 on 01/12/2023 by Constantino Bullock MD at [facility] Pacemaker [employer] [id number] 06/12/2024 [id number] / [id number] 87 / Superion Ids - 10mm Implanted:Qty : 1 on 11/30/2022 by Jose Angel Mensah MD at [facility] N/A: Spine Lumbar [employer] [id number] 08/24/2026 101-9810 / / [id number] Superion Ids - 12mm Implanted:Qty : 1 on 11/30/2022 by Jose Angel Mensah MD at [facility] N/A: Spine Lumbar [employer] [id number] 05/27/2027 101-9812 / / [id number] Procedures Procedure Name Priority Date/Time Associated Diagnosis [...] flow voids in large cerebral vessels on [id number] imaging. Diffusion weighted images show no evidence [...] Irvin Posada MD CV IMPLANTABLE CARDIAC DEVICE OR OCEDURES Final Result CPACS * Cardiac device [...] and Crohn's disease in her mother. Sedation: [facility] Attending Physician: Dr. Dario Calderon Pvc Monitor: Rachel Prado, Fellow Procedure Details Informed consent [...] for the entire procedure. us Natalia Kuhn [facility] ENDOSCOPY PROCEDURE O RDERABLES Final Result from Last 3 Months or Most Recently Relevant to Health Maintenance Insurance MEDICARE GENERIC COMMERCIAL Care Teams Library Acquisitions Technician Relationship Specialty Start Date End Date Jeremiah Arvizu MD [address] [place] [address] PCP - General 01/26/22
--- OUTSIDE RECORDS SUMMARY | 2024-09-13 13:47 | XMS_ITS | Clinical Summary ---
Author Organization [facility] Address [address] [id number] Care Team Providers Care Supervisor Inspection Room Name Role Phone Jeremiah Arvizu MD Primary [...] A AND B GENERIC PLAN Care Teams Supervisor Inspection Room Relationship Specialty Start Date End Date Jeremiah Arvizu MD PCP - General Family Medicine 06/26/16
--- OUTSIDE RECORDS SUMMARY | 2024-09-13 13:47 | XMS_ITS | Clinical Summary ---
Author Organization [facility] Address [address] [place] [address] Care Team Providers Care Undergraduate Intern Name Role Phone Jeremiah Arvizu MD Primary [...] Active Problems Problem Noted Date Diagnosed Date Intrinsic sphincter deficiency (ISD) 09/11/2024 Aspirin long-term use 05/09/2024 CAD (coronary artery [...] 10/02/2022 Overview (05/05/2024): SOBIA=17.7 events/hour; Pranav SaO2=76%; Nfwmse=887.0 lbs; BMI=52.7 kg/m2, Home Sleep Apnea Testing on 09/25/2022 at [facility] [place] (ventricular tachycardia) 04/29/2022 Overview (05/05/2024): Added automatically from request for surgery [id number] Clinical trial exam 04/23/2022 Overview (05/05/2024): Added automatically from request for surgery [id number] A-fib 04/21/2022 Lower abdominal pain 01/30/2022 Spinal stenosis of lumbar re gion with neurogenic claudication 01/30/2022 Spondylosis of 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 or radiculopathy 01/30/2022 Essential hypertension 01/25/2020 Chest pain 07/27/2016 Dyspnea 07/27/2016 Edema 07/27/2016 Fatigue 07/27/2016 Lightheadedness 07/27/2016 Encounters Date Type Department Care Team Description 09/11/2024 1:30 PM EDT Office Visit [facility] [address] [place] [address] John Viramontes MD ETD (Eustachian tube dysfunction), right (Primary Dx); Chronic mastoiditis, right 09/11/2024 Bamboo flowsheet [facility] [address] [place] [address] John Viramontes MD 09/11/2024 Travel 08/15/2024 Clinisync Result Encounter [facility] External Department Unsolicited John Viramontes MD 08/09/2024 9:40 AM EDT Office Visit [facility] [address] [place] [address] John Viramontes MD ETD (Eustachian tube dysfunction), right (Primary Dx); CSF otorrhea; Chronic myringitis of right ear 08/09/2024 Bamboo flowsheet [facility] [address] [place] [address] John Viramontes MD 08/09/2024 Travel 06/26/2024 Clinisync Result Encounter [facility] External Department Unsolicited John Viramontes MD 06/23/2024 Orders Only [facility] [address] [place] [address] Jeremiah Arvizu MD 06/20/2024 9:40 AM EDT Office Visit [facility] [address] [place] [address] John Viramontes MD OME (otitis media with effusion), right (Primary Dx); ETD (Eustachian tube dysfunction), right; 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 06/20/2024 Bamboo flowsheet [facility] [address] [place] [address] John Viramontes MD 06/20/2024 Travel from Last [...] Mass Index 50.46 09/11/2024 1:21 PM EDT Plan of Treatment Upcoming Encounters Date Type Department Care Team (Late st Contact Info) Description 09/11/2025 10:20 AM EDT Office Visit [facility] [address] [facility] [address] [place] [address] John Viramontes MD [address] [facility] [address] [place] [address] Health Maintenance Due Date Last Done Comments CT Colonography 1950 FIT-DNA 1950 FIT 1950 FOBT 1950 Sigmoidoscopy 1950 Mammogram 1991 Pneumococcal Vaccine: 65+ Ye ars (1 of 1 - PCV) 2001 Influenza Vaccine (Season Ended) 2024 Colonoscopy 02/09/2033 02/09/2023, 01/14, 07/06/2018 Colorectal Cancer Screening 02/09/2033 Medical Devices Implanted Type Area [employer] Attendant Device Identifier Shelf Expiration Date Model / [...] PM EDT Narrative 08/15/2024 2:54 [place] [address] CT Scan Report Signed Patient: JUSTIN COLLINS MR#: [id number] : 1950 Acct:[id number] Age/Sex: 74 / F ADM Date: 08/15/24 Loc: CT Attending Dr: John Viramontes M.D. Ordering Physician: John Viramontes M.D. Date of Service: 08/15/24 Procedure(s): CT int auditory canals w/o con Accession Number(s): [id number] cc: Jeremiah Arvizu M.D. [address] [address] Patient Name: JUSTIN COLLINS MRN: [id number] date: 1950 Sex: F Assigned Patient Location: CT Current Patient Location: CT Accession/Order Number: [id number] Exam Date: 08/15/2024 14:47 Report Date: 08/15/2024 [...] Gutierrez M.D. 08/15/2024 2:51 PM Dictation Location: [place] [address] Electronically authenticated by: [id number] Y Date: 08/15/2024 14:51 Dictated By: Victor Manuel Gutierrez M.D. Signed By: 08/15/24 1454 DD/ 1451 TD/TT: Seo Associate: Procedure Note Radiology, Radiologist, - 08/15/[address] [address] [address] Scan Report Signed Patient: JUSTIN COLLINS [facility]#: [id number] : 1950cct:[id number] Age/Sex: 74 / FADM Date: 08/15/24 Loc: CT Attending Dr: John Viramontes M.D. Ordering Physician: John Viramontes M.D. Date of Service: 08/15/24 Procedure(s): CT int auditory canals w/o con Accession Number(s): [id number] cc: Jeremiah Arvizu M.D. [address] [address] Patient Name: JUSTIN COLLINS MRN: [id number] date: 1950 Sex: F Assigned Patient Location: CT Current Patient Location: CT Accession/Order Number: [id number] Exam Date: 08/15/2024 14:47 Report Date: 08/15/2024 [...] Gutierrez M.D. 08/15/2024 2:51 PM Dictation Location: [place] [address] Electronically authenticated by: [id number] Y Date: 4:51 Dictated By: Victor Manuel Gutierrez M.D. Signed By:08/15/24 1454 DD/ 1451 TD/TT: Seo Associate: John Viramontes MD IMG CT PROCEDURES Final [...] 06/26/2024 10:23 AM EDT John Viramontes MD [facility] Final Result [facility] * [facility] (06/26/2024 9:40 AM EDT) PARTIAL THROMBOPLASTIN TIME 29.3 22.3 - 36.2 sec [facility] 06/26/2024 9:40 AM EDT 06/26/2024 9:43 AM EDT Narrative [facility] - 06/26/2024 10:23 AM EDT us John Viramontes MD [facility] Final Result [facility] * [facility] (06/20/2024 8:24 AM EDT) us Jeremiah Arvizu MD LAB CHG PERFORMABLES Final Resu lt from Last 3 Months Insurance MEDICARE [facility] Care Teams Undergraduate Intern Relationship Specialty Start Date End Date Jeremiah Arvizu MD [address] [place] [phone] PCP - General Family Medicine 08/02/24
--- OUTSIDE RECORDS SUMMARY | 2024-09-13 13:47 | XMS_ITS | Encounter Summary ---
Author Organization [facility] Address [address] [place] [address] Care Team Providers Care Miller Head Name Role Phone Jeremiah Arvizu MD Primary Care Provider [phone] Encounter Details Date Type Department Care Team (Late st Contact Info) Description 08/04/2022 Community Orders LISA HOLLINS [facility] 1,2,3 [facility] [place], [place] [id number] Linn Álvarez PA [address] [place] [address] [phone] Social History Tobacco Use Types Packs/Day Years [...] Description 10/24/2024 10:30 AM EDT Ancillary Procedure [facility] [address] [place] [address] 10/24/2024 11:15 AM EDT Office Visit [facility] [address] [place] [phone] Irvin Posada MD [address] [place] [phone] documented as of this encounter Visit Diagnoses Not on filedocumented in this encounter Care Teams Miller Head Relationship Specialty Start Date End Date Jeremiah Arvizu MD [address] [facility] [address] [address] PCP - General 01/26/22 documented as of this encounter
--- OUTSIDE RECORDS SUMMARY | 2024-09-13 13:48 | XMS_ITS | Patient Health Record ---
Author Organization [facility] in [place] Address [address] [place] [address] Care Team Providers Care Past Due Accounts Clerk Name Role Phone Dontrell Arvizu Primary Care Provider [phone] Provider, JONATHAN Unavailable [phone] Jose Angel Mensah Unavailable [phone] Bhavana Long Unavailable [phone] Beatriz Campos Unavailable [phone] Donal Salmeron Unavailable [phone] Allergies Allergen (clinical drug ingredient) Drug/Non Drug Allergy documented on EMR Reaction Allergy Type Onset Date Status Plastic Tape (uncoded) hives Allergy 023 Active fluticasone Flonase Unknown Drug Allergy Activ e Penicillin Unknown Drug Allergy Active Results Component Value Reference Range Notes MR LUMBAR SPINE WO CONTRAST Reviewed date:01/23/2024 05:32:21 PM Interpretation: Performing Lab: Notes/Report: MR LUMBAR SPINE WO CONTRAST 11/23/2023 12:56 PM ORDER IN EPIC XR EYE FOREIGN BODY Reviewed date:01/23/2024 05:32:21 PM Interpretation: Performing Lab: Notes/Report: XR EYE FOREIGN BODY 11/23/2023 12:54 PM STAT PRE MRI ORBITS- POTASSIUM Reviewed date:01/24/2024 01:26:44 PM Interpretation: Performing Lab: Notes/Report: [facility] , Potassium 5.5 3.5-5.1 mmol/L Performing Lab: see note ML - [facility] LB Troponin I High Sensitivity Reviewed date:01/24/2024 01:26:44 PM Interpretation: Performing Lab: Notes/Report: [facility] , Troponin I High Sensitivity 11.7 4.0-51.3 pg/mL CUT-OFF POINTS HAVE BEEN ESTABLISHED BASED ON THE FOURTH UNIVERSAL DEFINITION OF MYOCARDIAL INFARCTION. THE UPPER REFERENCE LIMIT (URL) OF TROPONIN, DEFINED THE 99TH PERCENTILE OF cTnI DISTRIBUTION IN A REFERENCE POPULATION, HAS BEEN CONFIRMED THE DECISION THRESHOLD FOR [place] DIAGNOSIS. 99TH PERCENTILE = 51.4 PG/ML NOTE: HIGH-SENSITIVITY TROPONIN ASSAY IS NOT INTENDED TO BE USED IN ISOLATION BUT SHOULD BE INTERPRETED IN CONJUNCTION WITH OTHER DIAGNOSTIC AND CLINICAL INFORMATION. Performing Lab: see note ML - [facility] LB MAGNESIUM Reviewed date:01/31/2024 01:01:36 PM Interpretation: Performing Lab: Notes/Report: [facility] , Magnesium 1.7 1.8-2.4 mg/dL Performing Lab: see note ML - [facility] LB RENAL FUNCTION PANEL Reviewed date:01/31/2024 01:01:36 PM Interpretation: Performing Lab: Notes/Report: [facility] , Sodium 144 136-145 mmol/L Potassium 4.9 [...] g/dL Performing Lab: see note ML - [facility] LB UA RANDOM W or MICROSCOPIC Reviewed date:02/01/2024 08:16:19 PM Interpretation: Performing Lab: Notes/Report: [facility] , Color Urine LT. YELLOW YELLOW Clarity Urine CLEAR CLEAR Specific [place] Urine 1.020 1.005-1.025 pH Urine 6.0 5.0-9.0 [...] #/LPF Performing Lab: see note ML - [facility] LB URIC ACID SERUM Reviewed date:01/31/2024 01:01:36 PM Interpretation: Performing Lab: Notes/Report: [facility] , Uric Acid 7.6 2.6-6.0 mg/dL Performing Lab: see note - [facility] LB VITAMIN D 25 [place] Reviewed date:01/31/2024 01:44:22 PM Interpretation: Performing Lab: Notes/Report: [facility] , Vitamin D 37.4 <20 ng/mL Vit D deficient 20-<30 ng/mL Vit D insufficient 30-100 ng/mL Vit D sufficient >100 ng/mL Potential Toxicity Performing Lab: see note - [facility] LB PTH, Intact Reviewed date:02/01/2024 11:07:43 AM Interpretation: Performing Lab: Notes/Report: [facility] , PTH, Intact 46 15-65 pg/mL Performed at: - [facility] [address] [id number] Refuel[employer] Ramp Supervisor: Jozef Medina PhD, Phone: [phone] Performing Lab: see note LC - [facility] LB XR sinus min 3V Reviewed date:05/09/2024 04:10:11 PM Interpretation: Performing Lab: Notes/Report: Source Facility: [place] [address] XRay Report Signed Patient: JUSTIN SADLER MR#: [id number] : 1950 Acct:[id number] Age/Sex: 74 / F ADM Date: 05/09/24 Loc: RAD Attending Dr: Lakshmi Mathews M.D. Ordering Physician: Lakshmi Mathews M.D. Date of Service: 05/09/24 Procedure(s): XR sinus min 3V Accession Number(s): [id number] cc: Debbie Arvizu M.D.; Lakshmi Mathews M.D. [address] [address] Patient Name: JUSTIN SADLER MRN: [id number] date: 1950 Sex: F Assigned Patient Location: RAD Current Patient Location: [facility] Accession/Order Number: [id number] Exam Date: 05/09/2024 12:47 Report Date: 05/09/2024 [...] M.D.05/09/2024 12:54 PM Dictation Location: [place] [address] Electronically authenticated by: [id number] Y Date: 05/09/2024 12:54 Dictated By: Kelly Lao M.D. Signed By: 05/09/24 1257 DD/ 1254 TD/TT: Lens Grinder: [place] [address] XRay Report Signed Patient: MARY SADLER SE MR#: [id number] : 1950 Acct:[id number] Age/Sex: 74 / F ADM Date: 05/09/24 Loc: RAD Attending Dr: Lakshmi Mathews M.D. Ordering Physician: Lakshmi Mathews M.D. Date of Service: 05/09/24 Procedure(s): XR sin us min 3V Accession Number(s): [id number] cc: Debbie Arvizu M.D. ; Lakshmi Mathews M.D. [address] [address] Patient Name: JUSTIN SADLER MRN: [id number] date: 1950 Sex: F Assigned Patient Location: RAD Current Patient Loca tion: RAD Accession/Order Irwin er: [id number] Exam Date: 05/09/2024 12:47 Report Date: 05/09/2024 [...] M.D.05/09/2024 12:54 PM Dictation Location: [place] [address] Electronically authenticated by: [id number] Y Date: 05/09/2024 12:54 Dictated By: Kelly Lao M.D. Signed By: 05/09/24 1257 DD/ 1254 TD/TT: [employer]: CBC AUTO DIFF Reviewed date:06/20/2024 03:31:27 PM Interpretation: Performing Lab: Notes/Report: [facility] , White Blood Count 7.5 4.0-11.0 [...] 10 3/uL Performing Lab: see note - [facility] LB URINE T PROTEIN CREAT RATIO Reviewed date:06/20/2024 03:31:27 PM Interpretation: Performing Lab: Notes/Report: [facility] , Total Protein Urine Random 30.4 <=11.9 mg/dL Creatinine Urine Random 127.97 20.00-30 0.00 mg/dL Protein Creatinine Ratio Urine 0.24 Performing Lab: see note [facility] LB PTH, Intact Reviewed date:06/21/2024 12:49:25 PM Interpretation: Performing Lab: Notes/Report: [facility] , PTH, Intact 43 15-65 pg/mL Performed at: - [facility] [address] [id number] [employer] Supervisor: Jozef Medina PhD, Phone: [phone] Performing Lab: see note - [facility] LB CRP Reviewed date:07/30/2024 09:56:53 PM Interpretation: Performing Lab: Notes/Report: [facility] , C Reactive Protein <0.50 <=0.50 mg/dL Performing Lab: see note [facility] LB LDH Reviewed date:07/30/2024 09:56:53 PM Interpretation: Performing Lab: Notes/Report: [facility] , Lactate Dehydrogenase 147 81-234 U/L Performing Lab: see note [facility] LB CBC AUTO DIFF Reviewed date:07/30/2024 09:56:53 PM Interpretation: Performing Lab: Notes/Report: [facility] , White Blood Count 7.2 4.0-11.0 10 [...] Performing Lab: see note ML - [facility] LB PROF CHEM 8 (BAS METB) Reviewed date:07/30/2024 09:56:53 PM Interpretation: Performing Lab: Notes/Report: [facility] , Sodium 141 136-145 mmol/L Potassium 4.8 [...] Performing Lab: see note ML - [facility] LB Troponin I High Sensitivity Reviewed date:07/30/2024 09:56:53 PM Interpretation: Performing Lab: Notes/Report: [facility] , Troponin I High Sensitivity 12.0 4.0-51.3 pg/mL CUT-OFF POINTS HAVE BEEN ESTABLISHED BASED ON THE FOURTH UNIVERSAL DEFINITION OF MYOCARDIAL INFARCTION. THE UPPER REFERENCE LIMIT (URL) OF TROPONIN, DEFINED THE 99TH PERCENTILE OF cTnI DISTRIBUTION IN A REFERENCE POPULATION, HAS BEEN CONFIRMED THE DECISION THRESHOLD FOR [place] DIAGNOSIS. 99TH PERCENTILE = 51.4 PG/ML NOTE: HIGH-SENSITIVITY TROPONIN ASSAY IS NOT INTENDED TO BE USED IN ISOLATION BUT SHOULD BE INTERPRETED IN CONJUNCTION WITH OTHER DIAGNOSTIC AND CLINICAL INFORMATION. Performing Lab: see note ML - [facility] LB ECG 12 lead Reviewed date:07/30/2024 09:56:53 PM Interpretation: Performing Lab: Notes/Report: Source Facility: [place] [address] [place] [address] Electrocardiograph Report Signed Patient: JUSTIN SADLER MR#: [id number] : 1950 Acct:[id number] Age/Sex: 74 / F ADM Date: 07/28/24 Loc: MS 232-[address]: Debbie Arvizu M.D. 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 Measurements Intervals [place] Rate: 80 P: 92 CO: 180 QRS: 37 QRSD: 88 T: 27 QT: 402 QTc: 438 Interpretive Statements [id number] Electronic atrial pacemaker 9120 atypical ECG Compared to ECG 01/23/2024 17:12:55 No significant changes Electronically Signed On 07-29-2024 7:49:53 EDT by LOVE RUBIO M.D. Dictated By: LOVE RUBIO Signed By: 07/29/24 075 DD/ 06 TD/TT: L[employer] Grinder: [place] [address] Electrocardiograph Report Signed Patient: MARY SADLER SE MR#: [id number] : 1950 Acct:[id number] Age/Sex: 74 / F ADM Date: 07/28/24 Loc: MS 232-[address]: oYng Arvizu M.D. Ordering Physician: Etienne Arceo Date of Service: 07/28/24 Procedure(s): ECG 12 lead Accession Number(s): [id number] cc: [facility] Test Date: 2024-07-28 Pat Name: JUSTIN ZELAYA Department: 23 Room: - Gender: Female Pattern Layout Worker: : 1950 Requ este By: 1031 Order Number: [id number] Reading MD: LOVE RUBIO M.D. Measurements Intervals [place] Rate: 80 P: 92 CO: 180 QRS: 37 QRSD: 88 T: 27 QT: 402 QTc: 438 Interpretive Statements [id number] Electronic atr ial pacemaker 9120 atypical ECG Compared to ECG 01/23/2024 17:12:55 No significant changes Electronically Virgie d On 07-29-2024 7:49:53 EDT by LOVE RUBIO M.D. Dictated By: LOVE RUBIO Signed By: 07/29/24 075 DD/ 06 TD/TT: [employer]: CBC AUTO DIFF Reviewed date:07/30/2024 09:56:53 PM Interpretation: Performing Lab: Notes/Report: [facility] , White Blood Count 6.2 4.0-11.0 10 [...] 3/uL Performing Lab: see note ML - [facility] LB MAGNESIUM Reviewed date:07/30/2024 09:56:53 PM Interpretation: Performing Lab: Notes/Report: [facility] , Magnesium 1.9 1.8-2.4 mg/dL Performing Lab: see note ML - [facility] LB PROF 14(COMP METB) Reviewed date:07/30/2024 09:56:53 PM Interpretation: Performing Lab: Notes/Report: [facility] , Sodium 144 136-145 mmol/L Potassium 4.9 [...] Globulin Ratio 0.9 Performing Lab: see note [facility] LB Aerobic Culture Reviewed date:08/13/2024 04:24:34 PM Interpretation: Performing Lab: Notes/Report: [facility] , Aerobic Culture See Below For Report Aerobic Culture Aerobic Culture Specimen has been received and testing has been initiated. Aerobic Culture Aerobic Culture Aerobic Culture Aerobic Culture No growth in 36 - 48 hours. Aerobic Culture Aerobic Culture Performed at: [facility] [place] Aerobic Culture Aerobic Culture [address] [place], [place] [id number] Aerobic Culture Aerobic Culture [employer] Supervisor: Serena Medina PhD, Phone: [phone] Aerobic Culture Performing Lab: see note - [facility] LB SEE REPORT - Scanning Manager Id information not found for OBX-specific independent producer legend Anaerobic Culture Reviewed date:08/17/2024 08:13:14 PM Interpretation: Performing Lab: Notes/Report: [facility] , Anaerobic Culture See Below For Report Anaerobic Culture Anaerobic Culture Specimen has been received and testing has been initiated. Anaerobic Culture Anaerobic Culture Anaerobic Culture Anaerobic Culture No anaerobes recovered. Anaerobic Culture Performing Lab: see note [facility] LB Aerobic Culture Reviewed date:08/17/2024 08:13:14 PM Interpretation: Performing Lab: Notes/Report: [facility] , Aerobic Culture See Below For Report Aerobic Culture Aerobic Culture Specimen has been received and testing has been initiated. Aerobic Culture Aerobic Culture Aerobic Culture Aerobic Culture No growth in 36 - 48 hours. Aerobic Culture Aerobic Culture Performed at: [facility] [place] Aerobic Culture Aerobic Culture [address], [place] [id number] Aerobic Culture Aerobic Culture [employer] Supervisor: Serena Medina PhD, Phone: [phone] Aerobic Culture Performing Lab: see note LC - [facility] LB SEE REPORT - Scanning Manager Id information not found for OBX-specific independent producer legend Aerobic Culture Reviewed date:09/07/2024 07:14:18 PM Interpretation: Performing Lab: Notes/Report: [facility] , Aerobic Culture See Below For Report Aerobic Culture Aerobic Culture Mixed skin sonny Aerobic Culture Aerobic Culture Performed at: [facility] Aerobic Culture Aerobic Culture [address] [place], [place] [id number] Aerobic Culture Aerobic Culture [employer] Supervisor: Serena Medina PhD, Phone: [phone] Aerobic Culture Performing Lab: see note - [facility] LB SEE REPORT - Scanning Manager Id information not found for OBX-specific independent producer legend Anaerobic Culture Reviewed date:09/10/2024 02:54:10 PM Interpretation: Performing Lab: Notes/Report: [facility] , Anaerobic Culture See Below For Report Anaerobic Culture Anaerobic Culture No anaerobic growth in 72 hours. Anaerobic Culture Performing Lab: see note - [facility] LB Aerobic Culture Reviewed date:09/10/2024 02:54:10 PM Interpretation: Performing Lab: Notes/Report: [facility] , Aerobic Culture See Below For Report Aerobic Culture Aerobic Culture Mixed skin sonny Aerobic Culture Aerobic Culture Performed at: [facility] Aerobic Culture Aerobic Culture [address] [place], [place] [id number] Aerobic Culture Aerobic Culture [employer] Supervisor: Serena Medina PhD, Phone: [phone] Aerobic Culture Performing Lab: see note - [facility] LB SEE REPORT - Scanning Manager Id information not found for OBX-specific independent producer legend CT int auditory canals w/o c on Reviewed date:08/15/2024 04:17:45 PM Interpretation: Performing Lab: Notes/Report: Source Facility: [place] [address] [place] [address] CT Scan Report Signed Patient: JUSTIN SADLER MR#: [id number] : 1950 Acct:[id number] Age/Sex: 74 / F ADM Date: 08/15/24 Loc: CT Attending Dr: Lakshmi Mathews M.D. Ordering Physician: Lakshmi Mathews M.D. Date of Service: 08/15/24 Procedure(s): CT int auditory canals w/o con Accession Number(s): [id number] cc: Debbie Arvizu M.D. [address] [address] Patient Name: JUSTIN SADLER MRN: [id number] date: 1950 Sex: F Assigned Patient Location: CT Current Patient Location: CT Accession/Order Number: [id number] Exam Date: 08/15/2024 14:47 Report Date: 08/15/2024 [...] Gutierrez M.D. 08/15/2024 2:51 PM Dictation Location: [place] [address] Electronically authenticated by: [id number] Y Date: 08/15/2024 14:51 Dictated By: Victor Manuel Gutierrez M.D. Signed By: 08/15/24 1454 DD/ 145 TD/TT: Lens Grinder: [place] [address] CT Scan Report Signed Patient: MARY SADLER SE MR#: [id number] : 1950 Acct:[id number] Age/Sex: 74 / F ADM Date: 08/15/24 Loc: CT Attending Dr: Lakshmi Mathews M.D. Ordering Physician: Lakshmi Mathews M.D. Date of Service: 08/15/24 Procedure(s): CT int auditory canals w/o con Accession Number(s): [id number] cc: Debbie Arvizu M.D. [place] [address] Patient Name: JUSTIN SADLER MRN: [id number] date: 1950 Sex: F Assigned Patient Location: CT Current Patient Loca tion: CT Accession/Order Numb er: [id number] Exam Date: 08/15/2024 14:47 Report Date: 08/15/2024 [...] auditory canal is within normal limits. The assistant auditor y canal is within normal limits. [...] auditory canal is within normal limits.. The assistant auditor y canal and mastoid air cells [...] Gutierrez M.D. 08/15/2024 2:51 PM Dictation Location: [place] [address] Electronically authenticated by: [id number] Y Date: 08/15/2024 14:51 Dictated By: Victor Manuel Gutierrez M.D. Signed By: 08/15/24 1454 DD/ 1451 TD/TT: Lens Grinder: Reticulocyte Pct Auto Reviewed date:07/30/2024 09:56:53 PM Interpretation: Performing Lab: Notes/Report: [facility] , Reticulocyte Pct Auto 1.22 0.60-3.10 % Performing Lab: see note ML - [facility] LB JOSE, PE and FLC, Serum Reviewed date:07/30/2024 09:56:53 PM Interpretation: Performing Lab: Notes/Report: [facility] , Immunoglobulin G, Qn, Serum 8396 560-8218 mg/dL Immunoglobulin A, Qn, Serum 179 64-422 mg/dL Immunoglobulin M, Qn, Serum 87 26-217 mg/dL Protein, Total 6.2 6.0-8.5 g/dL Albumin 3.2 2.9-4.4 g/dL Urmsn-9-Fmgnvwfa 0.3 0.0-0.4 g/dL Xlmak-5-Rcbyhzmf 0.9 0.4-1.0 g/dL Beta Globulin 1.0 0.7-1.3 [...] scan will follow via computer, mail, or welder experimental delivery. Free [place] Lt Chains,S 42.0 3.3-19.4 mg/L Free Lambda Lt Chains,S 26.6 5.7-26.3 mg/L [place]/Lambda Ratio,S 1.58 0.26-1.65 Performed at: - [facility] [id number] [employer] Supervisor: Jozef Medina PhD, Phone: [phone] Performing Lab: see note LC - [facility] LB Erythrocyte Sedimentation Ra te Reviewed date:07/30/2024 09:56:53 PM Interpretation: Performing Lab: Notes/Report: [facility] , Erythrocyte Sedimentation Rate 96 <=30 mm/hr Performing Lab: see note ML - [facility] LB PROF 14(COMP METB) Reviewed date:07/30/2024 09:56:53 PM Interpretation: Performing Lab: Notes/Report: [facility] , Sodium 139 136-145 mmol/L Potassium 5.1 [...] 0.8 Performing Lab: see note ML - [facility] LB CBC AUTO DIFF Reviewed date:07/30/2024 09:56:53 PM Interpretation: Performing Lab: Notes/Report: [facility] , White Blood Count 6.5 4.0-11.0 [...] 3/uL Performing Lab: see note ML - [facility] LB Prothrombin Time INR Reviewed date:06/26/2024 08:31:41 PM Interpretation: Performing Lab: Notes/Report: [facility] , Prothrombin Time 11.4 9.0-11.6 sec INR 1.08 DESIRED INR: 2.0-3.0 CONDITIONS NOT LISTED BELOW 2.5-3.5 FOR PROSTHETIC HEART VALVE REPLACEMENT 2.5-3.5 RECURRENT THROMBOSIS Performing Lab: see note ML - [facility] PTT Reviewed date:06/26/2024 08:31:41 PM Interpretation: Performing Lab: Notes/Report: [facility] , Partial Thromboplastin Time 29.3 22.3-36.2 sec Performing Lab: see note ML - [facility] Occult Blood* Reviewed date:06/22/2024 08:14:52 PM Interpretation: Performing Lab: Notes/Report: [facility] , Occult Blood Positive Performing Lab: see note - [facility] JOSE, PE and FLC, Serum Reviewed date:06/22/2024 08:14:52 PM Interpretation: Performing Lab: Notes/Report: [facility] , Immunoglobulin G, Qn, Serum 6587 841-0140 mg/dL Immunoglobulin A, Qn, Serum 206 64-422 mg/dL Immunoglobulin M, Qn, Serum 98 26-217 mg/dL Protein, Total 6.4 6.0-8.5 g/dL Albumin 2.9 2.9-4.4 g/dL Flhtn-6-Uhpwhoax 0.3 0.0-0.4 g/dL Dbxxj-9-Joqhhddx 1.0 0.4-1.0 g/dL Beta Globulin 1.1 0.7-1.3 [...] scan will follow via computer, mail, or welder experimental delivery. Free [place] Lt Chains,S 51.5 3.3-19.4 mg/L Free Lambda Lt Chains,S 30.7 5.7-26.3 mg/L [place]/Lambda Ratio,S 1.68 0.26-1.65 Performed at: [employer] [id number] Refuel[employer] Ramp Supervisor: Jozef Medina PhD, Phone: [phone] Performing Lab: see note - [facility] LB Immunofixation, Urine Reviewed date:06/22/2024 08:14:52 PM Interpretation: Performing Lab: Notes/Report: [facility] , Immunofixation, Urine Comment . No monoclonality detected. Performed at: [employer] [id number] [employer] Supervisor: Jozef Medina PhD, Phone: [phone] Performing Lab: see note - [facility] LB VITAMIN D 25 [place] Reviewed date:06/20/2024 03:31:27 PM Interpretation: Performing Lab: Notes/Report: [facility] , Vitamin D 37.9 <20 ng/mL Vit D deficient 20-<30 ng/mL Vit D insufficient 30-100 ng/mL Vit D sufficient >100 ng/mL Potential Toxicity Performing Lab: see note ML - [facility] LB URIC ACID SERUM Reviewed date:06/20/2024 03:31:27 PM Interpretation: Performing Lab: Notes/Report: [facility] , Uric Acid 8.0 2.6-6.0 mg/dL Performing Lab: see note ML - [facility] LB UA RANDOM W or MICROSCOPIC Reviewed date:06/20/2024 03:31:27 PM Interpretation: Performing Lab: Notes/Report: [facility] , Color Urine YELLOW YELLOW Clarity Urine CLEAR CLEAR Specific [place] Urine 1.020 1.005-1.025 pH Urine 6.0 5.0-9.0 [...] NO Performing Lab: see note ML - [facility] LB TSH Reviewed date:06/20/2024 03:31:27 PM Interpretation: Performing Lab: Notes/Report: [facility] , Thyroid Stimulating Hormone 0.008 0.358-3.740 uIU/mL Performing Lab: see note ML - [facility] LB T4 Reviewed date:06/20/2024 03:31:27 PM Interpretation: Performing Lab: Notes/Report: [facility] , T4 Thyroxine 8.10 4.80-13.90 ug/dL Performing Lab: see note ML - [facility] LB PROF 14(COMP METB) Reviewed date:06/20/2024 03:31:27 PM Interpretation: Performing Lab: Notes/Report: [facility] , Sodium 142 136-145 mmol/L Potassium 4.8 [...] Performing Lab: see note ML - [facility] LB PHOSPHORUS Reviewed date:06/20/2024 03:31:27 PM Interpretation: Performing Lab: Notes/Report: [facility] , Phosphorus 3.7 2.6-4.7 mg/dL Performing Lab: see note ML - [facility] LB MAGNESIUM Reviewed date:06/20/2024 03:31:27 PM Interpretation: Performing Lab: Notes/Report: [facility] , Magnesium 1.6 1.8-2.4 mg/dL Performing Lab: see note ML - [facility] LB LIPID PROFILE Reviewed date:06/20/2024 03:31:27 PM Interpretation: Performing Lab: Notes/Report: [facility] , Triglycerides 55 <=150 mg/dL Cholesterol 146 [...] RISK Performing Lab: see note ML - [facility] LB IRON AND TIBC Reviewed date:06/20/2024 03:31:27 PM Interpretation: Performing Lab: Notes/Report: [facility] , Iron 51.0 50.0-170.0 ug/dL Total Iron Binding Capacity 230.0 250.0-450.0 ug/dL Percent Iron Saturation 22.2 Performing Lab: see note ML - [facility] LB GLYCOHEMOGLOBIN A1C Reviewed date:06/20/2024 03:31:27 PM Interpretation: Performing Lab: Notes/Report: [facility] , Glycohemoglobin A1C 5.2 4.5-6.2 % ADA RECOMMENDED LIMIT 4.0 - 6.0 ADA THERAPEUTIC TARGET < 7.0 ACTION SUGGESTED > 7.0 Estimated Average Glucose 103 Performing Lab: see note ML - [facility] LB FREE T3 Reviewed date:06/20/2024 03:31:27 PM Interpretation: Performing Lab: Notes/Report: [facility] , Free T3 2.57 2.18-3.98 pg/mL Performing Lab: see note ML - [facility] LB FERRITIN Reviewed date:06/20/2024 03:31:27 PM Interpretation: Performing Lab: Notes/Report: [facility] , Ferritin 147.0 8.0-252.0 ng/mL Performing Lab: see note ML - [facility] LB CBC no Diff (Hemogram) Reviewed date:01/31/2024 01:01:36 PM Interpretation: Performing Lab: Notes/Report: [facility] , White Blood Count 7.2 4.0-11.0 10 [...] fL Performing Lab: see note ML - [facility] LB URINE T PROTEIN CREAT RATIO Reviewed date:02/01/2024 08:16:19 PM Interpretation: Performing Lab: Notes/Report: [facility] [facility] , Total Protein Urine Random 22.9 <=11.9 mg/dL Creatinine Urine Random 106.23 20.00-30 0.00 mg/dL Protein Creatinine Ratio Urine 0.22 Performing Lab: see note ML - [facility] LB XR chest 1V Reviewed date:01/23/2024 06:00:42 PM Interpretation: Performing Lab: Notes/Report: Source Facility: [facility] [place] [address] [address] XRay Report Signed Patient: JUSTIN SADLER MR#: [id number] : 1950 Acct:[id number] Age/Sex: 73 / F ADM Date: 01/23/24 Loc: ER Attending Dr: Ordering Physician: Holli Ocampo Date of Service: 01/23/24 Procedure(s): XR chest 1V Accession Number(s): [id number] cc: Debbie Arvizu M.D.; Holli Ocampo [place] [address] Patient Name: JUSTIN SADLER MRN: [id number] date: 1950 Sex: F Assigned Patient Location: ER Current Patient Location: ER Accession/Order Number: [id number] Exam Date: 01/23/2024 17:28 Report Date: 01/23/2024 [...] M.D. Signed By: 01/23/241754 DD/ 51 TD/TT: Lens Grinder: [place] [address] XRay Report Signed Patient: MARY SADLER SE MR#: [id number] : 1950 Acct:[id number] Age/Sex: 73 / F ADM Date: 01/23/24 Loc: ER Attending Dr: Ordering Physician: Holli Ocampo Date of Service: 01/23/24 Procedure(s): XR chest 1V Accession Number(s): [id number] cc: Debbie Arvizu M.D. ; Holli Ocampo [place] [address] Patient Name: JUSTIN SADLER MRN: [id number] date: 1950 Sex: F Assigned Patient Location: ER Current Patient Loca tion: ER Accession/Order Numb er: [id number] Exam Date: 17:28 Report Date: 01/23/2024 17:52 [...] M.D. Signed By: 01/23/241754 DD/ 51 TD/TT: Lens Grinder: ECG 12 lead Reviewed date:01/24/2024 01:26:44 PM Interpretation: Performing Lab: Notes/Report: Source Facility: [place] [address] [place] [address] Electrocardiograph Report Signed Patient: JUSTIN SADLER MR#: [id number] : 1950 Acct:[id number] Age/Sex: 73 / F ADM Date: 01/23/24 Loc: ER Attending Dr: Ordering Physician: Holli Ocampo Date of Service: 01/23/24 Procedure(s): ECG 12 lead Accession Number(s): [id number] cc: The [facility] Test Date: 2024-01-23 Pat Name: JUSTIN SADLER Department: Room: - Gender: Female Pattern Layout Worker: : 1950 Requested By: DEBBIE ARVIZU Order Number: [id number] Reading MD: DEBBIE ARVIZU Measurements Intervals [place] Rate: 81 P: 87 CO: 156 QRS: 68 QRSD: 88 T: 60 QT: 384 QTc: 421 Interpretive Statements 25120 Electronic atrial pacemaker 9120 atypical ECG Compared to ECG 01/19/2023 11:51:08 Sinus rhythm no longer present T-wave abnormality no longer present Electronically Signed On 01-24-2024 5:15:18 EST by DEBBIE ARVIZU Dictated By: Debbie Arvizu M.D. 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 Signed By: 01/24/24514 DD/ 11 TD/TT: Lens Grinder: Troponin I High Sensitivity Reviewed date:01/23/2024 06:00:42 PM Interpretation: Performing Lab: Notes/Report: The [facility] , Troponin I High Sensitivity 11.0 4.0-51.3 pg/mL CUT-OFF POINTS HAVE BEEN ESTABLISHED BASED ON THE FOURTH UNIVERSAL DEFINITION OF MYOCARDIAL INFARCTION. THE UPPER REFERENCE LIMIT (URL) OF TROPONIN, DEFINED THE 99TH PERCENTILE OF cTnI DISTRIBUTION IN A REFERENCE POPULATION, HAS BEEN CONFIRMED THE DECISION THRESHOLD FOR [place] DIAGNOSIS. 99TH PERCENTILE = 51.4 PG/ML NOTE: HIGH-SENSITIVITY TROPONIN ASSAY IS NOT INTENDED TO BE USED IN ISOLATION BUT SHOULD BE INTERPRETED IN CONJUNCTION WITH OTHER DIAGNOSTIC AND CLINICAL INFORMATION. Performing Lab: see note ML - [facility] LB Prothrombin Time INR Reviewed date:01/23/2024 05:40:30 PM Interpretation: Performing Lab: Notes/Report: [facility] , Prothrombin Time 10.6 9.0-11.6 sec INR 1.00 DESIRED INR: 2.0-3.0 CONDITIONS NOT LISTED BELOW 2.5-3.5 FOR PROSTHETIC HEART VALVE REPLACEMENT 2.5-3.5 RECURRENT THROMBOSIS Performing Lab: see note - [facility] PROF 14(COMP METB) Reviewed date:01/23/2024 06:00:42 PM Interpretation: Performing Lab: Notes/Report: The [facility] , Sodium 143 136-145 mmol/L Potassium 5.3 [...] 0.8 Performing Lab: see note ML - [facility] LB CBC AUTO DIFF Reviewed date:01/23/2024 05:32:21 PM Interpretation: Performing Lab: Notes/Report: The [facility] , White Blood Count 8.2 4.0-11.0 10 [...] Performing Lab: see note ML - The [facility] LB CT lower leg LT wo con Reviewed date:08/15/2024 04:17:45 PM Interpretation: Performing Lab: Notes/Report: Source Facility: [facility] [place] [address] [place] [address] CT Scan Report Signed Patient: JUSTIN SADLER MR#: [id number] : 1950 Acct:[id number] Age/Sex: 74 / F ADM Date: 08/15/24 Loc: CT Attending Dr: Debbie Arvizu M.D. Ordering Physician: Debbie Arvizu M.D. Date of Service: 08/15/24 Procedure(s): CT lower leg LT wo con Accession Number(s): [id number] cc: Debbie Arvizu M.D. [place] [id number] Patient Name: JUSTIN SADLER MRN: [id number] date: 1950 Sex: F Assigned Patient Location: CT Current Patient Location: CT Accession/Order Number: [id number] Exam Date: 08/15/2024 15:40 Report Date: 08/15/2024 [...] None HISTORY: Acute hematoma involving the left dewye. Injury one and half weeks ago. History [...] Ashford M.D. 08/15/2024 3:45 PM Dictation Location: [place] [address] Electronically authenticated by: [id number] Y Date: 08/15/2024 15:45 Dictated By: Sacha Ashford D.O. Signed By: 08/15/24 1547 DD/ 1545 TD/TT: Lens Grinder: [place] [address] CT Scan Report Signed Patient: MARY SADLER SE MR#: [id number] : 1950 Acct:[id number] Age/Sex: 74 / F ADM Date: 08/15/24 Loc: CT Attending Dr: Yong Arvizu M.D. Ordering Physician: Debbie Arvizu M.D. Date of Service: 08/15/24 Procedure(s): CT low er leg LT wo con Accession Number(s): [id number] cc: Debbie Arvizu M.D. [address] [address] Patient Name: JUSTIN SADLER MRN: [id number] date: 1950 Sex: F Assigned Patient Location: CT Current Patient Loca tion: CT Accession/Order [facility] er: [id number] Exam Date: 08/15/2024 15:40 Report Date: 08/15/2024 15:45 At the request of: DEBBIE ARVIZU MD Procedure: CT lower leg LT wo con CT left lower leg wi thout contrast TECHNIQUE: The CT ex am was performed using one or more the following dose reduction techniques : Automated exposure control, adjustment of the MA and/or Kv according to kasie ent size, or use of the iterative [...] Ashford M.D. 08/15/2024 3:45 PM Dictation Location: [facility] Electronically authenticated by: [id number] Y Date: 08/15/2024 15:45 Dictated By: Miguel Ashford D.O. Signed By: 08/15/24 1547 DD/ 1545 TD/TT: Lens Grinder: XR FOOT RT 2V Reviewed date:03/11/2024 08:36:26 PM Interpretation: Performing Lab: Notes/Report: Source Facility: [place] [address] XRay Report Signed Patient: JUSTIN SADLER MR#: [id number] : 1950 Acct:[id number] Age/Sex: 74 / F ADM Date: 03/10/24 Loc: [facility] Attending Dr: Debbie Arvizu M.D. Ordering Physician: Debbie Arvizu M.D. Date of Service: 03/10/24 Procedure(s): XR foot RT 2V Accession Number(s): [id number] cc: Debbie Arvizu M.D. [place] [address] Patient Name: JUSTIN SADLER MRN: [id number] date: 1950 Sex: F Assigned Patient Location: [facility] Current Patient Location: [facility] Accession/Order Number: [id number] Exam Date: 03/10/2024 14:45 Report Date: 03/10/2024 [...] By: Joe Moon M.D. Signed By: 03/10/24 152 DD/ 19 TD/TT: Lens Grinder: [place] [address] XRay Report Signed Patient: MARY SADLER SE MR#: [id number] : 1950 Acct:[id number] Age/Sex: 74 / F ADM Date: 03/10/24 Loc: RAD Attending Dr: Yong Arvizu M.D. Ordering Physician: Debbie Arvizu M.D. Date of Service: 03/10/24 Procedure(s): XR aries t RT 2V Accession Number(s): [id number] cc: Debbie Arvizu M.D. [place] [address] Patient Name: JUSTIN SADLER MRN: [id number] date: 1950 Sex: F Assigned Patient Location: RAD Current Patient Loca tion: RAD Accession/Order Numb er: [id number] Exam Date: 14:45 Report Date: 03/10/2024 15:20 [...] By: Joe Moon M.D. Signed By: 03/10/24 152 DD/ 19 TD/TT: Lens Grinder: Reason For Referral Diagnosis 1 Chronic kidney disea se (CKD), stage III (moderate) (N18.30) Referral Organization [facility] Referring Provider First Name Dontrell Referring Provider Last Name [facility] Referring Provider [facility] Referred Provider Lizette Schaffer Referred Provider Specialty Nephrology Referral Priority Routine Diagnosis 1 Spinal stenosis, lum bar region with neurogenic claudication (M48.062) Referral Organization [facility] Referring Provider First Name Dontrell Referring Provider Last Name [facility] Referred Provider Pain Management, TB Referred Provider Specialty Pain Medicin e Referral Priority Routine Diagnosis 1 Bladder prolapse, fe male, acquired (N81.10) Referral Organization [facility] Referring Provider First Name Dontrell Referring Provider Last Name [facility] Referring Provider [facility] Referred Provider Ladonna Malagon Referred Provider Specialty Urology Referral Priority Routine Diagnosis 1 Encounter for examin ation of ears and hearing without abnormal findings (Z01.10) Referral Organization [facility] Referring Provider First Name Dontrell Referring Provider Last Name [facility] Referring Provider [facility] Referred Provider Lakshmi Mathews Referred Provider Specialty Otolaryngolo gy Referral Priority Routine Reason Patient would like B sabina office please! Diagnosis 1 Hyperproteinemia (E8 8.09) Referral Organization [facility] Referring Provider First Name Dontrell Referring Provider Last Name [facility] Referring Provider [facility] Referred Organization [facility] Referred Provider Beatriz Campos Referred Address [address],[place], [place],[address],[place] Referred Provider Specialty Hematology/O ncology Referral Priority Routine Diagnosis 1 Rectal bleeding (K62 .5) Referral Organization [facility] Referring Provider First Name Dontrell Referring Provider Last Name [facility] Referring Provider [facility] Referred Provider Rigoberto Tam Referred Provider Specialty Gastroentero logy Referral Priority Routine Diagnosis 1 Open wound of leg, l eft, subsequent encounter (S81.492D) Referral Organization [facility] Referring Provider First Name Dontrell Referring Provider Last Name Nolberto Referring Provider Speciality Family [facility] denis Referred Provider Isael Mart Referred Provider [...] Status W/U Status Risk Notes Problem Hyperkalemia (54466106) Hyperkalemia (E87.5) Active confirmed Problem 509433599 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) Active confirmed Problem 08115206 Sick sinus syndrome (I49.5) Active confirmed Problem Chronic kidney disease stage 3 (disorder) (320502804) Chronic kidney disease, stage 3 (moderate) (N18.3) Active confirmed Problem 90338520 Bradycardia, unspecified (R00.1) Active confirmed Problem 873397635 Morbid obesity (E66.01) Active confirmed Problem COPD - Chronic obstructive pulmonary disease (62885704) COPD (chronic obstructive pulmonary disease) (J44.9) Active confirmed Problem Hypothyroidism (09576061) Hypothyroidism (E03.9) Active confirmed Problem Coronary artery disease (66017859) CAD (coronary artery disease) (I25.10) Active confirmed Problem Spinal stenosis (75127910) Spinal stenosis (M48.00) Active confirmed Problem Chronic kidney disease (398512180) CKD (chronic kidney disease) (N18.9) Active confirmed Problem Cardiac pacemaker in situ (951537556) Pacemaker (Z95.0) Active confirmed Problem Dizziness (747961892) Dizziness (R42) Active confirmed Problem Transient ischemic attack (183786552) TIA (transient ischemic attack) (G45.9) Active confirmed Problem Migraine (96618872) Migraine (G43.909) Active c onfirmed Problem 11140821 Chronic obstructive pulmonary disease, unspecified COPD type (J44.9) Active confirmed Problem Pain in right foot (327961303182665) Right foot pain (M79.671) Active confirmed Problem Serous otitis media (58550813) Serous otitis media (H65.90) Active confirmed Problem Cellulitis (372876921) Cellulitis (L03.90) Active confirmed Problem Diverticulitis (65929366) Diverticulitis (K57.92) Active confirmed Problem Hyperproteinemia (77219983) Hyperproteinemia (E88.09) Active confirmed Problem Tubular adenoma (698253962) Tubular adenoma (D36.9) Active confirmed Problem Lumbar spondylosis (474228860) Lumbar spondylosis (M47.816) Active confirmed Problem Ocular migraine (62202260) Ocular migraine (G43.109) Active confirmed Problem 089836912 Multiple pulmona ry nodules (R91.8) Active confirmed Problem Midline cystocele (853229035) Bladder prolapse, female, acquired (N81.10) Active confirmed Problem Lumbosacral spondylosis (124959745) Lumbosacral spondylosis (M47.817) Active confirmed Problem Anemia of chronic renal failure (91110243) Anemia due to stage 3 chronic kidney disease (D63.1) Active confirmed Problem Essential hypertension (88258449) BP (high blood pressure) (I10) Active confirmed Problem 21080847 Pure hypercholesterolem ia, unspecified (E78.00) Active confirmed Problem Secondary pulmonary hypertension (51814211) Other secondary pulmonary hypertension (I27.29) Active confirmed Problem Pulmonary hypertension (03461408) Pulmonary hypertension (I27.20) Active confirmed Problem Neurogenic claudication (331907950) Spinal stenosis, lumbar region with neurogenic claudication (M48.062) Active confirmed Problem Malnutrition of mild degree ([place]: 75% to less than 90% of standard weight) (59541164) Mild protein malnutrition (E44.1) Active confirmed Problem 279168092 COVID-19 (U07.1) Active confirmed Problem Body mass index 40+ - morbidly obese (732863668) Body mass index [BMI] 50.0-59.9, adult (Z68.43) Active confirmed Problem Chronic kidney disease stage 3 (disorder) (831130319) Chronic kidney disease (CKD), stage III (moderate) (N18.30) Active confirmed Problem 482319727 Other ventricula r tachycardia (I47.29) Active confirmed Problem 165722468 Other supraventricular tachycardia (I47.19) Active confirmed Vital Signs Heart Rate 76 /min 11/23/2023 Temperature 98.0 degrees Fahrenheit 06/01/2024 Respiratory Rate 18 /min 11/23/2023 Oximetry 97 % 11/23/2023 Blood pressure diastolic 82 mm Hg 09/04/2024 Height 65 in 09/04/2024 Blood pressure systolic 142 mm Hg 09/04/2024 Weight 287.4 lbs 09/04/2024 BMI 47.82 kg/m2 09/04/2024 Encounters Encounter Location Date Provider Diagnosis [place] [address] [place] [address] 09/04/2024 Dontrell Hoy Open wound of leg, left, subsequent encounter S81.802D [address] [address] 09/04/2024 Dontrell Hoy [place] [address] [place] [address] 06/22/2024 Dontrell Hoy Rectal bleeding K62. [address] [address] 06/22/2024 Dontrell Hoy Hyperproteinemia E88 .[address] [address] 07/14/2024 Dontrell Hoy H [facility] [address] [place] [address] 08/11/2024 Dontrell Hoy Contusion of head S00.93XA and Contusion of leg, left S80.12XA [place] [address] [place] [address] 08/15/[address] [facility] [address] [place] [facility] [place] [address] 08/28/[address] [facility] [address] [place] [address] 03/11/[address] [facility] [address] [place] [place] [address] 04/05/2024 Dontrell Griffithy COPD (chronic obstructive pulmonary disease) J44.9 and Right foot pain M79.671 [facility] [address] [facility] [place] [address] 04/24/2024 Dontrell Griffithy Encounter for examination of ears and hearing without abnormal findings Z01.10 [facility] [address] [place] [facility] [place] [place] [address] 05/31/2024 Dontrell Griffithy Other fatigue R53.83 ; Other abnormal glucose R73.09 ; Pure hypercholesterolemia, unspecified E78.00 and Encounter for screening for malignant neoplasm of colon Z12.11 [facility] [address] [place] [facility] [place] [place] [address] 06/08/[address] [facility] [address] [place] [facility] [place] [place] [address] 06/20/2024 Dontrell Griffithy Hypothyroidism E03.9 [facility] [address] [place] [address] 09/30/2023 Dontrell Arvizu Chronic kidney disea se (CKD), stage III (moderate) N18.30 [facility] [address] [place] [facility] [place] [address] 10/04/2023 Dontrell Griffithy COPD (chronic obstructive pulmonary disease) J44.9 [facility] [address] [place] [address] 01/25/[address] [facility] [address] [place] [facility] [place] [address] 01/31/2024 Dontrell Griffithy Spinal stenosis, lum bar region with neurogenic claudication M48.062 [facility] [address] [place] [facility] [place] [address] 02/01/[address] [facility] [address] [place] [place] [address] 02/21/2024 Dontrell Arvizu Bladder prolapse, female, acquired N81.10 [facility] [address] [place] [place] [address] 07/25/2024 Beatriz Beth [facility] [address] [place] [place] [address] 08/22/2024 Beatriz Beth [facility] [address] [place] [address] 12/22/2023 ASC Provider [facility] [address] [place] [address] 09/21/2023 ASC Provider [facility] [address] [place] [address] 01/25/2024 Dontrell Arvizu Encounter for Medica re annual wellness exam Z00.00 [facility] [address] [place] [address] 10/19/2023 Jose Angel [place] Spinal stenosis, lum bar region with neurogenic claudication M48.062 ; Lumbosacral spondylosis M47.817 ; Other fdc (current) drug therapy Z79.899 and Vertebrogenic low back pain M54.51 [facility] [address] [place] [address] 12/07/2023 Jose Angel [place] Spinal stenosis, lum bar region with neurogenic claudication M48.062 ; Lumbosacral spondylosis M47.817 ; Other fdc (current) drug therapy Z79.899 and Vertebrogenic low back pain M54.51 [facility] [address] [place] [address] 01/19/2024 Bhavana Long Lumbosacral spondylosis M47.817 ; Spinal stenosis, lumbar region with neurogenic claudication M48.062 ; Vertebrogenic low back pain M54.51 and FDC (current) use of opiate analgesic Z79.891 [facility] [address] [place] [address] 08/08/2024 Dontrell Hoy Cellulitis L03.90 [facility] [place] [address] [place] [address] 11/23/2023 Donal Salmeron Multiple pulmonary nodules R91.8 ; COPD (chronic obstructive pulmonary disease) J44.9 ; History of tobacco abuse Z87.891 ; History of COVID-19 Z86.16 ; Encounter for screening for malignant neoplasm of respiratory organs Z12.2 ; Morbid obesity E66.01 and Body mass index [BMI] 45.0-49.9, adult Z68.42 [facility] [address] [place] [address] 03/10/2024 Dontrell Hoy Right foot pain M79. [address] [place] [address] [place] [address] 04/17/2024 Dontrell Hoy Serous otitis media H65.90 [place] [address] [place] [address] 08/03/2024 Dontrell Hoy Migraine G43.909 [place] [address] [place] [address] 08/09/2024 Dontrell Hoy Cellulitis L03.[address] [address] 09/04/2024 Dontrell Hoy Cellulitis L03.[address] [address] 01/31/2024 Dontrell Hoy Spinal stenosis M48. 00 and Pulmonary hypertension I27.20 [facility] [address] [place] [address] 06/01/2024 Dontrell Hoy Acute bronchitis, unspecified organism J20.9 [facility] [address] [place] [address] 09/21/2023 Jose Angel [place]ah [facility] [address] [place] [address] 12/22/2023 Jose Angel [place] Assessments Encounter Date Diagnosis [...] L4-5, L5-S1 07/29/23 - In PT at [facility], limited relief from TFESI, continued pain in [...] x-ray, ordered new lumbar MRI faxed to [facility] due to pacemaker 5. Consults: Has [...] axial pain 07/29/23 - In PT at [facility], limited [...] progressed compared to prior. Findings most prominent L4-O2ymlur there is moderate severe right neural foraminal [...] Will proceed with bilateral L4-5 transforaminal epidural [facility] outpatient surgery center. Otherwise patient recommended to continue home exercise program, stretching, core strengthening, PT OT, advised to use assist device when ambulating and advise benefits of weight loss PLAN: 1. Interventions: Bilateral L4-5 transforaminal epidural in [facility] outpatient surgery center Possible candidate for Vertiflex at adjacent segments, however I believe worsening of pain symptoms is due to disease progression at L3-4 and L4-5 levels rather than L1-2 and L2-3 Not a great Intracept candidate 2. Physical therapy: Continue PT/OT 3. Medications: OARRS checked, UDS today- appropriate Discontinue tramadol due to lack of benefit, could trial Mineral versus Percocet 4. Imaging: History of lumbar [...] axial pain 07/29/23 - In PT at [facility], limited relief from TFESI, continued pain in [...] progressed compared to prior. Findings most prominent L4-I9pedci there is moderate severe right neural foraminal [...] Will proceed with bilateral L4-5 transforaminal epidural [facility] surgery center. Otherwise patient recommended to continue home exercise program, stretching, core strengthening, PT OT, advised to use assist device when ambulating and advise benefits of weight loss PLAN: 1. Interventions: Bilateral L4-5 transforaminal epidural in [facility] surgery center Possible candidate for Vertiflex at adjacent segments, however I believe worsening of pain symptoms is due to disease progression at L3-4 and L4-5 levels rather than L1-2 and L2-3 Not a great Intracept candidate 2. Physical therapy: Continue PT/OT 3. Medications: OARRS checked, UDS today- appropriate Discontinue tramadol due to lack of benefit, could trial Mineral versus Percocet 4. Imaging: History of lumbar [...] vaporizer to help keep the drainage moist. Jevm-qsi-kwbhfuc Nasal Saline may help the stuffy and runny nose. Use Ibuprofen and or Tylenol as needed for fever, chills, body aches or pain. Children 5 years old should not be given ygcq-wba-maymycb cough and cold medications such as guaifenesin and dextromethorphan. If you're over age 5, you may try wune-gwg-vjdjcwp cold medications such as guaifenesin and dextromethorphan, [...] due to lack of benefit, could trial Mineral versus Percocet 2. Continue home exercise program, [...] progressed compared to prior. Findings most prominent L4-[id number] there is moderate severe right neural foraminal [...] back pain (ICD-10 - M54.51) 12/07/2023 Other fdc (current) drug therapy (ICD-10 - Z79.899) This [...] axial pain 07/29/23 - In PT at [facility], limited relief from TFESI, continued pain in [...] progressed compared to prior. Findings most prominent L4-I9gzdte there is moderate severe right neural foraminal [...] Will proceed with bilateral L4-5 transforaminal epidural [facility] [place]. Otherwise patient recommended to continue home exercise program, stretching, core strengthening, PT OT, advised to use assist device when ambulating and advise benefits of weight loss PLAN: 1. Interventions: Bilateral L4-5 transforaminal epidural in [facility] [place] Possible candidate for Vertiflex at adjacent segments, however I believe worsening of pain symptoms is due to disease progression at L3-4 and L4-5 levels rather than L1-2 and L2-3 Not a great Intracept candidate 2. Physical therapy: Continue PT/OT 3. Medications: OARRS checked, UDS today- appropriate Discontinue tramadol due to lack of benefit, could trial Mineral versus Percocet 4. Imaging: History of lumbar [...] L4-5, L5-S1 07/29/23 - In PT at [facility], limited relief from TFESI, continued pain in [...] x-ray, ordered new lumbar MRI faxed to [facility] due to pacemaker 5. 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 Consults: Has [...] axial pain 07/29/23 - In PT at [facility], limited relief from TFESI, continued pain in [...] progressed compared to prior. Findings most prominent L4-B0ftwuv there is moderate severe right neural foraminal [...] Will proceed with bilateral L4-5 transforaminal epidural [facility]. Otherwise patient recommended to continue home exercise program, stretching, core strengthening, PT OT, advised to use assist device when ambulating and advise benefits of weight loss PLAN: 1. Interventions: Bilateral L4-5 transforaminal epidural in [facility] outpatient [facility] center Possible candidate for Vertiflex at adjacent segments, however I believe worsening of pain symptoms is due to disease progression at L3-4 and L4-5 levels rather than L1-2 and L2-3 Not a great Intracept candidate 2. Physical therapy: Continue PT/OT 3. Medications: OARRS checked, UDS today- appropriate Discontinue tramadol due to lack of benefit, could trial Mineral versus Percocet 4. Imaging: History of lumbar MRI from 2021 Reviewed new lumbar imaging with patient as above 5. Consults: Has followed with neurosurgery, not planning surgical intervention at this time, following with cardiology 6. 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 Consults: Has [...] 06/01/2024 CBC AUTO DIFF 05/31/2024 CULTURE WOUND 09/04/2024 CULTURE WOUND 08/09/2024 GLYCOHEMOGLOBIN A1C 05/31/2024 LIPID PROFILE 05/31/2024 PROF 14(COMP METB) 05/31/2024 MRI BRAIN WO CON 08/03/2024 US KIDNEYS BLADDER 04/22/2023 THYROID PANEL (T4/TSH/FREE T3) 4 THYROID PANEL (T4/TSH/FREE T3) 5 THYROID PANEL (T4/TSH/FREE T3) 5 Future Test Test Name Order Date CT Chest Low Dose for Screening* 025 Next Appt Details Provider Name:Donal Salmeron, 09/26/2024 09:00:00 AM, [address] [place], [address], Provider Name:Beatriz Campos , 01/23/2025 09:30:00 AM, [address] [place], [address], Insurance Providers Payer Name Payer Address Payer Phone Subscriber Number Group Number Insured Name Patient Relationship to Insured Coverage Start Date Coverage End Date [place] [address] [place] [address] [id number] [facility] Self - patient is the insured 4 [employer]IC[employer] SUPPLEMENT [address] [address] [place] [address] [id number] [facility] Self - patient is the insured 8 [...] Dr. Mensah 05/13 Colonoscopy & EGD - [facility] 01/2023 PPM Implant- Biotronik 01/12/2023 Back Surgery 05/11/2021 Right Foot Surgery cataract-lens implants hysterectomy
--- OUTSIDE RECORDS SUMMARY | 2024-09-13 13:48 | XMS_ITS | Encounter Summary ---
Author Organization [facility] Address [address] [place] [address] Care Team Providers Care Hot Box Checker Name Role Phone Jeremiah Arvizu MD Primary Care Provider [phone] Encounter Details Date Type Department Care Team (Late st Contact Info) Description 02/24/2022 Orders Only [facility] [address] [place] [phone] Karolyn Werner MA Essential hypertension Social History [...] Description 10/24/2024 10:30 AM EDT Ancillary Procedure [facility] [address] [place] [facility] [place] [address] 10/24/2024 11:15 AM EDT Office Visit [facility] [address] [place] [address] Irvin Posada MD [address] [place] [address] documented as of this encounter Visit Diagnoses Diagnosis Essential hypertension Unspecified essential hypertension documented in this encounter Care Teams Hot Box Checker Relationship Specialty Start Date End Date Jeremiah Arvizu MD [address] [place] [address] PCP - General 01/26/22 documented as of this encounter
--- OUTSIDE RECORDS SUMMARY | 2024-09-13 13:48 | XMS_ITS | Encounter Summary ---
Author Organization [facility] Address [address] [facility] [place] [address] Care Team Providers Care Court Manager Name Role Phone Jeremiah Arvizu MD Primary Care Provider [phone] Encounter Details Date Type Department Care Team (Latest Contact Info) Description 09/11/2024 Travel Social History Tobacco Use Types Packs/Day [...] EDT Office Visit [facility] [address] [facility] [address] [place] [address] Lakshmi Viramontes MD [address] [facility] [address] [place] [address] documented as of this encounter Visit Diagnoses Not on filedocumented in this encounter Care Teams Court Manager Relationship Specialty Start Date End Date Jeremiah Arvizu MD [address] [place] [address] PCP - General Family Medicine 08/02/24 documented as of this encounter
--- OUTSIDE RECORDS SUMMARY | 2024-09-13 13:48 | XMS_ITS | Encounter Summary ---
Author Organization [facility] Address [address] [facility] [place] [place] [address] Care Team Providers Care Anesthesiologist And Critical Care Name Role Phone Jeremiah Arvizu MD Primary Care Provider [phone] Encounter Details Date Type Department Care Team ([facility] Contact Info) Description 09/11/2024 Bamboo flowsheet [facility] [address] [facility] [address] [place] [phone] Lakshmi Viramontes MD [address] [facility] [address] [place], [place] [id number] Social History Tobacco Use Types Packs/Day Years [...] Upcoming Encounters Date Type Department Care Team ([facility] Contact Info) Description 09/11/2025 10:20 AM EDT Office Visit [facility] [address] [facility] [address] [place] [phone] Lakshmi Viramontes MD [address] [facility] [address] [place], [place] [id number] documented as of this encounter Visit Diagnoses Not on filedocumented in this encounter Care Teams Anesthesiologist And Critical Care Relationship Specialty Start Date End Date Jeremiah Arvizu MD [address] [facility] [place] [address] PCP - General Family Medicine 08/02/24 documented as of this encounter
== END 2024-09-13 13:46 | disposition home or self-care (01) ==
LOC: WC 13:45
PROVIDERS: PCP Family Medicine; Visit Provider Podiatrist Foot & Ankle Surgery
DX: I87.332 Chronic venous hypertension (idiopathic) with ulcer and inflammation of left lower extremity (principal); L97.825 Non-pressure chronic ulcer of other part of left lower leg with muscle involvement without evidence of necrosis
CPT/HCPCS: 11043; A6213

== ENCOUNTER 2024-09-19 13:51 | Outpatient (OUT) | payer MEDICARE, SELFPAY ==
--- OUTSIDE RECORDS SUMMARY | 2024-09-11 13:15 | XMS_ITS ---
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 Name Role Phone RYAN MEEHAN Referring Unavailable TATO SALCIDO Attending Unavailable SUNDAR, IRVIN Referring Unavailable SUNDAR, IRVIN Attending Unavailable SUNDAR, IRVIN Attending Unavailable SUNDAR, IRVIN Referring Unavailable SUNDAR, IRVIN Referring Unavailable SUNDAR, IRVIN Referring Unavailable DEBBIE ARVIZU Referring Unavailable RYAN MEEHAN Referring Unavailable Radha BELTRÁN, Cande Venegas Attending Unavailable Radha BELTRÁN, Cande Venegas Attending Unavailable TIMMIS, JOHN H Attending Unavailable DEBBIE ARVIZU M Referring Unavailable TIMMIS, JOHN H Attending Unavailable TIMMIS, JOHN H Attending Unavailable TIMMIS, JOHN H Attending Unavailable Debbie Arvizu Primary Care Unavailable Asaad, Imad Attending Unavailable Asaad, Imad Admitting Unavailable NKANSAH-AMANKRA, ROSETTA Referring Unavail able NKANSAH-AMANKRA, ROSETTA Admitting Unavail able NKANSAH-AMANKRA, ROSETTA Attending Unavail able NKANSAH-AMANKRA, ROSETTA Attending Unavail able Debbie Arvizu Referring Unavailable NKANSAH-AMANKRA, ROSETTA Attending Unavail able NKANSAH-AMANKRA, ROSETTA Attending Unavail able NKANSAH-AMANKRA, ROSETTA Attending Unavail able NKANSAH-AMANKRA, ROSETTA Admitting Unavail able NKANSAH-AMANKRA, ROSETTA Attending Unavail able NKANSAH-AMANKRA, ROSETTA Referring Unavail able NKANSAH-AMANKRA, ROSETTA Referring Unavail able NKANSAH-AMANKRA, ROSETTA Admitting Unavail able NKANSAH-AMANKRA, ROSETTA Attending Unavail able PROBLEMS DATE TYPE CONDITION / CODE ATTENDING STATUS [facility] 08/25/2024 Admitting Diagnosis Migraine, unspecified, not intractable, without status migrainosus / G43.909(ICD-10) NA [facility] 07/19/2024 Unknown Hemorrhage of an us and rectum / K62.5(ICD-10) Asaad, Imad [facility] 07/18/2024 Admitting Diagnosis Encounter for adjustment and management of other part of cardiac pacemaker / Z45.018(ICD-10) NA [facility] 02/08/2024 Admitting Diagnosis Encounter for checking and testing of cardiac pacemaker pulse generator (battery) / Z45.010(ICD-10) NA [facility] 01/26/2024 Admitting Diagnosis Epigastric pain / R10.13(ICD-10) TATO SALCIDO [facility] 11/23/2023 Admitting Diagnosis Vertebrogenic low back pain / M54.51(ICD-10) NA [facility] 11/23/2023 Admitting Diagnosis Encounter for other specified special examinations / Z01.89(ICD-10) NA [facility] 04/21/2022 Admitting Diagnosis Other persistent atrial fibrillation / I48.19(ICD-10) IRVIN POSADA [facility] PROCEDURES No Procedure Records Found RESULTS MR BRAIN WO CONTRAST Observed: 10:36 AM Status: UNK Source: [facility] Order Comment: Order in EPIC History: possible TIA Procedure: Multiplanar, multisequence imaging [...] disease Dense consolidation right mastoid sinus IMPRESSION: * Brain MR shows no acute findings. Mild brain atrophy and ischemic white matter disease * Dense consolidation right mastoid sinus Electronically signed: Estrada Raman. PATIENT EDUCATION Observed: 08/21/2024 10:41 AM Status: F Source: [facility] Patient Education Urology Urinary Incontinence Urinary incontinence refers to a condition in which a person is unable to control where and when to pass urine. A person with this condition will urinate involuntarily. This means that the person urinates when he or she does not mean to. What are the causes? This condition may be caused by: ??? Medicines. ??? Infections. ??? Constipation. ??? Overactive bladder muscles. ??? Weak bladder muscles. ??? Weak pelvic floor muscles. These muscles provide support for the bladder, intestine, and, in women, the uterus. ??? Enlarged prostate in men. The prostate is a gland near the bladder. When it gets too big, it can pinch the urethra. With the urethra blocked, the bladder can weaken and lose the ability to empty properly. ??? Surgery. ??? Emotional factors, such as anxiety, stress, or post-traumatic stress disorder (PTSD). ??? Spinal cord injury, nerve injury, or other neurological conditions. ??? Pelvic organ prolapse. This happens in women when organs move out of place and into the vagina. This movement can prevent the bladder and urethra from working properly. What increases the risk? The following factors may make you more likely to develop this condition: ??? Age. The older you are, the higher the risk. ??? Obesity. ??? Being physically inactive. ??? and childbirth. ??? Menopause. ??? Diseases that affect the nerves or spinal cord. ??? Long-term, or chronic, coughing. This can increase pressure on the bladder and pelvic floor muscles. What are the signs or symptoms? Symptoms may vary depending on the type of urinary incontinence you have. They include: ??? A sudden urge to urinate, and passing urine involuntarily before you can get to a bathroom (urge incontinence). ??? Suddenly passing urine when doing activities that force urine to pass, such as coughing, laughing, exercising, or sneezing (stress incontinence). ??? Needing to urinate often but urinating only a small amount, or constantly dribbling urine (overflow incontinence). ??? Urinating because you cannot get to the bathroom in time due to a physical disability, such as arthritis or injury, or due to a communication or thinking problem, such as Alzheimer's disease (functional incontinence). How is this diagnosed? This condition may be diagnosed based on: ??? Your medical history. ??? A physical exam. ??? Tests, such as: ? Urine tests. ? X-rays of your kidney and bladder. ? Ultrasound. ? CT scan. ? Cystoscopy. In this procedure, a health care provider inserts a tube with a light and camera (cystoscope) through the urethra and into the bladder to check for problems. ? Urodynamic testing. These tests assess how well the bladder, urethra, and sphincter can store and release urine. There are different types of urodynamic tests, and they vary depending on what the test is measuring. To help diagnose your condition, your health care provider may recommend that you keep a log of when you urinate and how much you urinate. How is this treated? Treatment for this condition depends on the type of incontinence that you have and its cause. Treatment may include: ??? Lifestyle changes, such as: ? Quitting smoking. ? Maintaining a healthy weight. ? Staying active. Try to get 150 minutes of moderate-intensity exercise every week. Ask your health care provider which activities are safe for you. ? Eating a healthy diet. ? Avoid high-fat foods, like fried foods. ? Avoid refined carbohydrates like white bread and white rice. ? Limit how much alcohol and caffeine you drink. ? Increase your fiber intake. Healthy sources of fiber include beans, whole grains, and fresh fruits and vegetables. ??? Behavioral changes, such as: ? Pelvic floor muscle exercises. ? Bladder training, such as lengthening the amount of time between bathroom breaks, or using the bathroom at regular intervals. ? Using techniques to suppress bladder urges. This can include distraction techniques or controlled breathing exercises. ??? Medicines, such as: ? Medicines to relax the bladder muscles and prevent bladder spasms. ? Medicines to help slow or prevent the growth of a man's prostate. ? Botox injections. These can help relax the bladder muscles. ??? Treatments, such as: ? Using pulses of electricity to help change bladder reflexes (electrical nerve stimulation). ? For women, using a emergency medical technician to prevent urine leaks. This is a small, tampon-like, disposable device that is inserted into the urethra. ? Injecting collagen or carbon beads (bulking agents) into the urinary sphincter. These can help thicken tissue and close the bladder opening. ? Surgery. Follow these instructions at home: Lifestyle ??? Limit alcohol and caffeine. These can fill your bladder quickly and irritate it. ??? Keep yourself clean to help prevent odors and skin damage. Ask your health care provider about special skin creams and cleansers that can protect the skin from urine. ??? Consider wearing pads or adult diapers. Make sure to change them regularly, and always change them right after experiencing incontinence. General instructions ??? Take ncwl-cju-qxtybya and prescription medicines only as told by your health care provider. ??? Use the bathroom about every 3?4 hours, even if you do not feel the need to urinate. Try to empty your bladder completely every time. After urinating, wait a minute. Then try to urinate again. ??? Make sure you are in a relaxed position while urinating. ??? If your incontinence is caused by nerve problems, keep a log of the medicines you take and the times you go to the bathroom. ??? Keep all follow-up visits. This is important. Where to find more information ??? National [place] of Diabetes and Digestive and Kidney Diseases: www.niddk.nih.gov ??? [place] [employer]: www.urologyhealth.org Contact a health care provider if: ??? You have pain that gets worse. ??? Your incontinence gets worse. Get help right away if: ??? You have a fever or chills. ??? You are unable to urinate. ??? You have redness in your groin area or down your legs. Summary ??? Urinary incontinence refers to a condition in which a person is unable to control where and when to pass urine. ??? This condition may be caused by medicines, infection, weak bladder muscles, weak pelvic floor muscles, enlargement of the prostate (in men), or surgery. ??? Factors such as older age, obesity, and childbirth, menopause, neurological diseases, and chronic coughing may increase your risk for developing this condition. ??? Types of urinary incontinence include urge incontinence, stress incontinence, overflow incontinence, and functional incontinence. ??? This condition is usually treated first with lifestyle and behavioral changes, such as quitting smoking, eating a healthier diet, and doing regular pelvic floor exercises. Other treatment options include medicines, bulking agents, medical devices, electrical nerve stimulation, or surgery. This information is not intended to replace advice given to you by your health care provider. Make sure you discuss any questions you have with your health care provider. Document Revised: 10/04/2020 Document Reviewed: 10/04/2020 [employer] Patient Education ? 2023 Seen. UROLOGY OFFICE/CLINIC NOTE Observed: 11/2024 10:15 AM Status: F Source: [facility] Urology Office/Clinic Note Chief Complaint f/u to bulkamid HPI Staff 74 year old female here for F/U to Bulkamid with PVR Previous DX: stress incontinence, kidney stones, former smoker and aspirin long- term use Bulkamid 07/13/24 pt denies any UTI sxs. History of Present Illness Tests reviewed: reviewed UA. I have reviewed the previous health record information and history for this patient from Dr. Desai I have reviewed and verified the staff HPI to be accurate for this encounter. There have been no associated fever, chills, flank pain, or blood in the urine. Denies any urinary infections since last encounter. Review of Systems PHQ Score Initial [...] See HPI. Physical Exam Vitals & Measurements T: 37 ???C(Oral) HR: 68(Peripheral) RR: 16 BP: 112/60 HT: 65 in HT: 165 cm WT: 287.703 lb WT: 130.5 kg BMI: 47.93 General Appearance: alert , no acute distress, well nourished, well developed female. Assessment/Plan Hx of open total hysterectomy due to fibroid tumor. No other abdominal surgeries. Hx of vaginal delivery. [1] Portions of this record may have been created with voice recognition artificial intelligence software, specifically [employer], [employer] and or [employer]. Substitutions may have occurred due to the inherent limitations of voice recognition and artificial intelligence software. 1. Intrinsic sphincter deficiency (ISD) (N36.42: Intrinsic sphincter deficiency (ISD)) BBSQ 14 (23) ISD confirmed on exam 05/19/24. S/p Bulkamid 07/13/24. UA today shows trace leuks. PVR 0 mL. Pt very pleased with Bulkamid. No longer leaking with JOSE ANTONIO. Pt states since the day of procedure everything has changed . Overall very happy that she proceed with procedure. -F/up in 6 mos 2. Stress incontinence (N39.3: Stress incontinence (female) (male)) See #1. 3. Urge incontinence (N39.41: Urge incontinence) Has noticed improvement with UUI since Bulkamid, although she is aware Bulkamid is for JOSE ANTONIO. Pt states she will only leak if she waits too long. Still wearing a pad for security purposes, pt states she doesn't really need it. -Timed voids 4. Kidney stones (N20.0: Calculus of kidney) RBUS 04/28/23 - No hydro. 4 mm LMP lesion and 9 mm LIP lesion. Most likely renal stones. 5. Former smoker (Z87.891: Personal history of nicotine dependence) 49 yrs, started at 17 yo stopped in 2015. [2] Increased risk for UCC. S/p cysto 05/19/24 - neg for b.t. or stones. 6. 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 No BTs. Has pacemaker. Hx of CO but was asx, not sure when it happened. [3] Patient is a 74-year-old female status post cystoscopy, Bulkamid injection. Patient has been doing great since Bulkamid injection. She states that she does not have any leakage with coughing, sneezing, increasing abdominal pressure. She wears 1 pad a day for safety purposes but has not had any accidents. She states that she is actually holding onto urine a lot longer than and I encouraged her to void every 2-3 hours to ensure complete emptying. Patient will follow-up with me in 6 months for reassessment. Follow-up With When Contact Information BRYAN BELTRÁN, SASKIA SARGENT Additional Instructions: 6 mos Patient Education Urinary Incontinence I, Federica Luna, personally scribed for Dr. Desai on 08/21/2024 11:06:37. . Documentation recorded by the scribe, Federica Luna, accurately reflects the services(s) I performed and decisions made by me. Authenticated by Dr. Adams on 08/21/2024 11:13:33. Problem List/Past Medical History Ongoing Aspirin long-term [...] abuse Hypercholesterolemia Hyperkalemia Hypertension Hypertensive disorder Hypothyroidism Intrinsic sphincter deficiency (ISD) Morbid obesity Morbid obesity with BMI of 45.0-49.9, adult Multiple pulmonary nodules Pulmonary hypertension Spinal stenosis Stress incontinence Stress incontinence, female Urge incontinence Historical No qualifying data Procedure/Surgical History Cystoscopy (07/13/2024), Flexible cystoscope (05/19/2024), Colonoscopy (02/09/2023), Colonoscopy (07/06/2018), CEIOL - Cataract extraction and insertion of intraocular lens, Foot, Hysterectomy. Medications Albuterol (Eqv-ProAir HFA), 2 puff(s), Inhalation, q4hr, PRN albuterol 0.083% Inh Viviana 3 mL, 2.5 mg= 3 mL, NEB, QID, PRN aspirin 81 mg Oral EC Tab, 81 mg= 1 tab(s), Oral, Daily betamethasone-clotrimazole Top 0.05%-1% Crm 15 gram bumetanide 1 mg Tab, 1 mg= 1 tab(s), Oral, Daily carvedilol 25 mg Tab, 12.5 mg= 0.5 tab(s), Oral, BID Cytomel 25 mcg Tab, 37.5 mcg= 1.5 tab(s), Oral, Daily hydrALAZINE 100 mg oral tablet, 100 mg= 1 tab(s), Oral, TID levothyroxine 88 mcg (0.088 mg) oral capsule, 88 mcg= 1 cap(s), Oral, Daily lisinopril 10 mg Tab, 10 mg= 1 tab(s), Oral, Daily lovastatin 20 mg Tab, 20 mg= 1 tab(s), Oral, Daily magnesium sulfate Pantoprazole [address] Tab, 40 mg= 1 tab(s), Oral, BID Allergies Adhesive Bandage (Hives) Social History Alcohol Current, Wine, 1-2 times per week, 06/26/2024 Substance Abuse - Denies Substance Abuse, 06/26/2024 Tobacco Former smoker, quit more than 30 days ago Tobacco Use:. Never Smokeless Tobacco Use:. Cigarettes, Yes, 08/21/2024 Family History Asthma: Mother. Crohn's disease: Mother. Heart disease: Father. Hypertension: Mother. Primary malignant neoplasm of colon: Father. Primary malignant neoplasm of rectum: Mother. Immunizations Vaccine Date Status SARS-CoV-2 (COVID-19) mRNA BNT-162b2 vax 01/07/2021 Recorded SARS-CoV-2 (COVID-19) mRNA BNT-162b2 vax 12/17/2020 Recorded Lab Results Ambulatory Point of Care Results Bilirubin Urine Dipstick: Negative (08/21/24 10:51:00) Blood Urine Dipstick: Negative (08/21/24 10:51:00) Glucose Urine Dipstick: Negative (08/21/24 10:51:00) Ketones Urine Dipstick: Negative (08/21/24 10:51:00) Leukocytes Urine Dipstick: Trace (08/21/24 10:51:00) Nitrite Urine Dipstick: Negative (08/21/24 10:51:00) Protein Urine Dipstick: Negative (08/21/24 10:51:00) Specific [place] Urine Dipstick: >=1.030 (08/21/24 10:51:00) Urine Appearance Urine Dipstick: Clear (08/21/24 10:51:00) Urine Color Urine Dipstick: Yellow (08/21/24 10:51:00) Urobilinogen Urine Dipstick: Normal 0.2-1 EU/dl (08/21/24 10:51:00) pH Urine Dipstick: 5.5 (08/21/24 10:51:00) Result Comment: Electronical ly Signed By: ROSETTA ADAMS MD\.br\Date and Time Signed: 08/21/24 11:14 EDT\.br\Electronically Co-Signed By: Cheryl, Federica B\.br\Date and Time Co-Signed: 08/21/24 11:07 EDT AMBULATORY VISIT SUMMARY Observed: 08/21 10:15 AM Status: F Source: [facility] Ambulatory Visit Summary VERO SADLER :1950 Visit Date:08/21/2024 Ambulatory Visit Instructions Your Diagnosis Intrinsic sphincter deficiency (ISD) Stress incontinence Urge incontinence Kidney stones Former smoker Aspirin long-term use Your Care Team Attending Physician - ROSETTA ADAMS MD Primary Care Physician - Debbie Arvizu MD This Is Your Medications List Contact prescribing physician if questions or concerns albuterol (Albuterol (Eqv-ProAir HFA)) albuterol (albuterol 0.083% Inh Viviana 3 mL) aspirin (aspirin 81 mg Oral EC Tab) betamethasone-clotrimazole topical (betamethasone-clotrimazole Top 0.05%-1% Crm 15 gram) bumetanide (bumetanide 1 mg Tab) carvedilol (carvedilol 25 mg Tab) hydrALAZINE (hydrALAZINE 100 mg oral tablet) levothyroxine (levothyroxine 88 mcg (0.088 mg) oral capsule) liothyronine (Cytomel 25 mcg Tab) lisinopril (lisinopril 10 mg Tab) lovastatin (lovastatin 20 mg Tab) magnesium sulfate pantoprazole (Pantoprazole [address] Tab) Procedures Performed Cystoscopy (07/13/2024), Flexible cystoscope (05/19/2024), Colonoscopy (02/09/2023), Colonoscopy (07/06/2018), CEIOL - Cataract extraction and insertion of intraocular lens, Foot, Hysterectomy. Discharge Vitals Temperature (Oral) 37 ???C Heart Rate (Peripheral) 68 Respiratory Rate 16 Blood Pressure 112/60 Height 165 cm Height 65 in Weight 130.5 kg Weight 287.703 lb BMI 47.93 What to do next Scheduled Follow-Up Appointments Wednesday 11:00 AM EST With: ROSETTA ADAMS MD Where: [facility] [address], [address] [place] [address]- You Need to Schedule the Following Appointments [...] prescribing physician if questions or concerns Unchanged betamethasone-clotrimazole topical (betamethasone-clotrimazole Top 0.05%-1% Crm 15 gram) Contact prescribing [...] if questions or concerns Unchanged levothyroxine (levothyroxine 88 mcg (0.088 mg) oral capsule) 1 Capsules By Mouth Every day Contact prescribing physician if questions or concerns Unchanged liothyronine (Cytomel 25 mcg Tab) 1.5 Tablets By Mouth Every day Contact prescribing physician if questions or concerns Unchanged lisinopril (lisinopril 10 mg Tab) 1 Tablets By Mouth Every day Contact prescribing physician if questions or concerns Unchanged lovastatin (lovastatin 20 mg Tab) 1 Tablets By Mouth Every day Contact prescribing physician if questions or concerns Unchanged magnesium sulfate Contact prescribing physician if questions or concerns [...] abuse Hypercholesterolemia Hyperkalemia Hypertension Hypertensive disorder Hypothyroidism Intrinsic sphincter deficiency (ISD) Morbid obesity Morbid obesity with BMI of 45.0-49.9, adult Multiple pulmonary nodules Pulmonary hypertension Spinal stenosis Stress incontinence Stress incontinence, female Urge incontinence Patient Survey You may receive a survey via text or e-mail asking about your office visit. Please share your experience with us by completing your survey. We appreciate your feedback and thank you for choosing us for your care. Education Materials Urinary Incontinence Urinary incontinence refers to a condition in which a person is unable to control where and when to pass urine. A person with this condition will urinate involuntarily. This means that the person urinates when he or she does not mean to. What are the causes? This condition may be caused by: ??? Medicines. ??? Infections. ??? Constipation. ??? Overactive bladder muscles. ??? Weak bladder muscles. ??? Weak pelvic floor muscles. These muscles provide support for the bladder, intestine, and, in women, the uterus. ??? Enlarged prostate in men. The prostate is a gland near the bladder. When it gets too big, it can pinch the urethra. With the urethra blocked, the bladder can weaken and lose the ability to empty properly. ??? Surgery. ??? Emotional factors, such as anxiety, stress, or post-traumatic stress disorder (PTSD). ??? Spinal cord injury, nerve injury, or other neurological conditions. ??? Pelvic organ prolapse. This happens in women when organs move out of place and into the vagina. This movement can prevent the bladder and urethra from working properly. What increases the risk? The following factors may make you more likely to develop this condition: ??? Age. The older you are, the higher the risk. ??? Obesity. ??? Being physically inactive. ??? and childbirth. ??? Menopause. ??? Diseases that affect the nerves or spinal cord. ??? Long-term, or chronic, coughing. This can increase pressure on the bladder and pelvic floor muscles. What are the signs or symptoms? Symptoms may vary depending on the type of urinary incontinence you have. They include: ??? A sudden urge to urinate, and passing urine involuntarily before you can get to a bathroom (urge incontinence). ??? Suddenly passing urine when doing activities that force urine to pass, such as coughing, laughing, exercising, or sneezing (stress incontinence). ??? Needing to urinate often but urinating only a small amount, or constantly dribbling urine (overflow incontinence). ??? Urinating because you cannot get to the bathroom in time due to a physical disability, such as arthritis or injury, or due to a communication or thinking problem, such as Alzheimer's disease (functional incontinence). How is this diagnosed? This condition may be diagnosed based on: ??? Your medical history. ??? A physical exam. ??? Tests, such as: ? Urine tests. ? X-rays of your kidney and bladder. ? Ultrasound. ? CT scan. ? Cystoscopy. In this procedure, a health care provider inserts a tube with a light and camera (cystoscope) through the urethra and into the bladder to check for problems. ? Urodynamic testing. These tests assess how well the bladder, urethra, and sphincter can store and release urine. There are different types of urodynamic tests, and they vary depending on what the test is measuring. To help diagnose your condition, your health care provider may recommend that you keep a log of when you urinate and how much you urinate. How is this treated? Treatment for this condition depends on the type of incontinence that you have and its cause. Treatment may include: ??? Lifestyle changes, such as: ? Quitting smoking. ? Maintaining a healthy weight. ? Staying active. Try to get 150 minutes of moderate-intensity exercise every week. Ask your health care provider which activities are safe for you. ? Eating a healthy diet. ? Avoid high-fat foods, like fried foods. ? Avoid refined carbohydrates like white bread and white rice. ? Limit how much alcohol and caffeine you drink. ? Increase your fiber intake. Healthy sources of fiber include beans, whole grains, and fresh fruits and vegetables. ??? Behavioral changes, such as: ? Pelvic floor muscle exercises. ? Bladder training, such as lengthening the amount of time between bathroom breaks, or using the bathroom at regular intervals. ? Using techniques to suppress bladder urges. This can include distraction techniques or controlled breathing exercises. ??? Medicines, such as: ? Medicines to relax the bladder muscles and prevent bladder spasms. ? Medicines to help slow or prevent the growth of a man's prostate. ? Botox injections. These can help relax the bladder muscles. ??? Treatments, such as: ? Using pulses of electricity to help change bladder reflexes (electrical nerve stimulation). ? For women, using a emergency medical technician to prevent urine leaks. This is a small, tampon-like, disposable device that is inserted into the urethra. ? Injecting collagen or carbon beads (bulking agents) into the urinary sphincter. These can help thicken tissue and close the bladder opening. ? Surgery. Follow these instructions at home: Lifestyle ??? Limit alcohol and caffeine. These can fill your bladder quickly and irritate it. ??? Keep yourself clean to help prevent odors and skin damage. Ask your health care provider about special skin creams and cleansers that can protect the skin from urine. ??? Consider wearing pads or adult diapers. Make sure to change them regularly, and always change them right after experiencing incontinence. General instructions ??? Take jfve-qoo-tjbrpgh and prescription medicines only as told by your health care provider. ??? Use the bathroom about every 3???4 hours, even if you do not feel the need to urinate. Try to empty your bladder completely every time. After urinating, wait a minute. Then try to urinate again. ??? Make sure you are in a relaxed position while urinating. ??? If your incontinence is caused by nerve problems, keep a log of the medicines you take and the times you go to the bathroom. ??? Keep all follow-up visits. This is important. Where to find more information ??? National [place] of Diabetes and Digestive and Kidney Diseases: www.niddk.nih.gov ??? [place] [employer]: www.urologyhealth.org Contact a health care provider if: ??? You have pain that gets worse. ??? Your incontinence gets worse. Get help right away if: ??? You have a fever or chills. ??? You are unable to urinate. ??? You have redness in your groin area or down your legs. Summary ??? Urinary incontinence refers to a condition in which a person is unable to control where and when to pass urine. ??? This condition may be caused by medicines, infection, weak bladder muscles, weak pelvic floor muscles, enlargement of the prostate (in men), or surgery. ??? Factors such as older age, obesity, and childbirth, menopause, neurological diseases, and chronic coughing may increase your risk for developing this condition. ??? Types of urinary incontinence include urge incontinence, stress incontinence, overflow incontinence, and functional incontinence. ??? This condition is usually treated first with lifestyle and behavioral changes, such as quitting smoking, eating a healthier diet, and doing regular pelvic floor exercises. Other treatment options include medicines, bulking agents, medical devices, electrical nerve stimulation, or surgery. This information is not intended to replace advice given to you by your health care provider. Make sure you discuss any questions you have with your health care provider. Document Revised: 10/04/2020 Document Reviewed: 10/04/2020 [employer] Patient Education ??? 2023 [employer] ORDERS ONLY Observed: 08/11/2024 12:00 AM Status: COMPLETED Source: [facility] [id number] Vero Sadler 10/1949 F [facility] Provider Department Center 08/11/2024 OLLIE HALLMAN [facility] CARD [place] [facility] Family History Problem Relation Age of Onset Other Mother Coronary artery disease Mother Other Mother Other Mother Other Father Hypertension Father Hyperlipidemia Father Other Daughter Family Status - Relation Status Age at Mother Father Daughter ORDERS ONLY Observed: 08/11/2024 12:00 AM Status: COMPLETED Source: [facility] [id number] Vero Sadler 10/1949 [facility] Provider Department [place] 08/11/2024 IRVIN ARNOLD C CARD [place] [facility] Family History Problem Relation Age of Onset Other Mother Coronary artery disease Mother Other Mother Other Mother Other Father Hypertension Father Hyperlipidemia Father Other Daughter Family Status - Relation Status Age at Mother Father Daughter PATHOLOGY REQUEST FOR LAB MIKE Collected: 07/19/2024 1:33 PM Status: F Source: [facility] Order Comment: GI SPECIMEN TYPE CODE TESTS RESULT OUT OF RANGE REFERENCE UNITS LAB [facility] Pathology Request for Lab Mike Result Comment: See report. Scanned copy available in EMR. PERFORMED BY: [facility] [place] [address] PATHOLOGIST MARKETING OFFICER GENE BARRAGAN M.D. Performed By: #### [facility] #### [facility] [address] PATIENT EDUCATION - TEXT Observed: 07/13 10:40 AM Status: F Source: [facility] Patient Education - Text OPERATIVE REPORT Observed: 07/13/2024 10:16 AM Status: F Source: [facility] Operative Report Patient: VERO SADLER Age: 74 years Sex: Female : 1950 Associated Diagnoses: None Author: ROSETTA ADAMS MD Procedure SURGEON: Rosetta Adams MD PREOPERATIVE DIAGNOSIS: Stress urinary incontinence with , intrinsic sphincter deficiency POSTOPERATIVE DIAGNOSIS: Same PROCEDURE: Cystoscopy, injection of urethral bulking agent CPT 00400 FINDINGS: Urethra injected at 4 units packed [...] 6 WEEKS. Needs to void before dc Result Comment: Electronical ly Signed By: BRYAN BELTRÁN, ROSETTA\.shyam\Date and Time Signed: 07/13/24 10:17 EDT PROGRESS NOTE-PHYSICIAN Observed: 2024 9:35 AM Status: F Source: [facility] Progress Note-Physician Patient: VERO SADLER Age: 74 years Sex: Female : 1950 Associated Diagnoses: None Author: Shahab BELTRÁN, Pedro Randolph Postoperative Information Postoperative disposition: Postoperative disposition: To PACU. Optimetrix number: Optimetrix number [id number]. Anesthetic utilized: General. Health Status Allergies: Allergic Reactions (Selected) Severity Not Documented Adhesive Bandage- Hives. Physical Examination VS/Measurements Pain Assessment: Controlled. General: Awake, Appropriate. Respiratory: Adequate air exchange. Cardiovascular: Stable. Neurological Assessment Anesthetic outcome No anesthetic complications noted. Adequate pain relief. Review / Management Condition: Stable. Plan Transfer/Discharge: Transfer/Discharge Discharge when meets criteria ( To home ). Result Comment: Electronical ly Signed By: Shahab BELTRÁN, Pedro Randolph\.br\Date and Time Signed: 07/15/24 16:46 EDT MAIN OR INTRAOPERATIVE RECORD Observed: 07/13/2024 9:02 AM Status: C Source: [facility] Main OR Intraoperative Recor d IntraOp Document Type FT Summary Primary Physician: ROSETTA ADAMS MD Finalized Date/Time: 07/14/24 10:37:22 Pt. Name: VERO SADLER/Sex: 1950 Female Med Rec #: [id number] Physician: ROSETTA ADAMS MD Financial #: [id number] Pt. Type: A Room/Bed: [place] [address] Admit/Disch: 07/13/24 07:02:16 - 07/13/24 11:00:00 Institution: Case Times FT Entry 1 Patient Times In Room 07/13/24 08:50:00 Out Room 07/13/24 09:14:00 Procedure Times Start 07/13/24 09:02:00 Stop 07/13/24 09:07:00 Anesthesia Times Start 07/13/24 08:50:00 Stop 07/13/24 09:14:00 Last Modified By: Andrew Holly Ii 07/13/24 09:17:16 Case Attendance FT Entry 1 Entry 2 Entry 3 Case Attendee Ofelia Nascimento MD, Camilla Goldman Role Performed Anesthesiologist Surgeon - Primary Scrub - Primary Defense Analyst Time In 07/13/24 08:50:00 07/13/24 08:50:00 07/13/24 08:50:00 Time Out 07/13/24 09:14:00 07/13/24 09:14:00 07/13/24 09:14:00 Procedure BULKAMID PROCEDURE(.) BULKAMID PROCEDURE(.) BULKAMID PROCEDURE(.) Comments dr. walden supervisor extruding department Last Modified By: Andrew Holly Ii, Alfons Ii F Letrondo, Alfons Ii F 07/13/24 09:22:03 07/13/24 09:22:03 07/13/24 09:22:03 Entry 4 Case Attendee Andrew Holly Ii Role Performed Carpentry Specialist - Primary Time In 07/13/24 08:50:00 Time [...] (If Applicable) PreOp Antibiotic Yes Time Out Ofelia Nascimento Given Participants BRYAN Segura MD, Jones [...] and tissue Entry 1 Skin Integrity Intact, [place], Warm, & Skin Abnormality No Dry Outcomes [...] Stirrup Right Leg Position Secured in Stirrup Positioning Device Safety Strap, Stirrups Yellow Fins, Pillow Under Head Large Press Points Checked Yes By Andrew Holly Ii, Denyer CAA, Robert David, Dellinger, Sydney A Outcomes Met? Yes Last Modified By: Andrew Holly Ii 07/13/24 09:18:52 Post-Care Text: The patient is free from signs and symptoms of injury related to positioning Patient Care Devices FT Pre-Care Text: Implements protective measures to prevent skin/ tissue injury due to thermal or mechanical sources Entry 1 Entry 2 Entry 3 Equipment Type MISTRAL FORCED AIR MONITOR CHARGE SURGERY PADDED STIRRUPS WARMING SYSTEM UNIT Equipment Number m9 Equipment Setting 43 c/high Outcomes Met? Yes Yes Yes Last Modified By: Andrew Holly Ii, Alfons Ii F Letrondo, Alfons Ii F 07/13/24 09:19:30 07/13/24 09:19:30 07/13/24 09:19:30 Entry 4 Entry 5 Entry 6 Equipment Type SCOPE BULKAMID VENA FLOW UNIT VIDEO SYSTEM Equipment Number Equipment Setting Outcomes Met? Yes Yes Yes Last Modified By: Andrew Holly Ii, Alfons Ii F Letrondo, Alfons Ii F 07/13/24 09:19:30 07/13/24 09:19:30 07/13/24 09:19:30 Post-Care Text: The patient is free from signs and symptoms of injury caused by extraneous objects Transport To OR FT Pre-Care Text: Transports according to individual needs. Evaluates for signs and symptoms of skin and tissue injury as a result of transfer or transport Entry 1 Via Cart By Andrew Holly Ii Safety Precautions Side Rails Up Outcomes Met? Yes Last Modified By: Andrew Holly Ii 07/13/24 09:19:39 Post-Care Text: The patient is free from signs and symptoms of injury related to transfer/transport Counts Verification FT Pre-Care Text: Performs required counts Entry 1 Entry 2 Procedure(s) BULKAMID PROCEDURE(.) BULKAMID PROCEDURE(.) Type Initial Final Items Instruments Instruments Status Correct Correct Time By Camilla Goldman Sydney A Outcomes Met? Yes Yes Last Modified By: Andrew Holly Ii, Alfons Ii F 07/13/24 09:19:51 07/13/24 09:19:51 Post-Care Text: The patient is free from signs and symptoms of injury caused by extraneous objects Skin Prep FT Pre-Care Text: Performs skin preparations Entry 1 Procedure BULKAMID PROCEDURE(.) Prep Area perineum Prep Agents Betasept Hair Removal Methods Not Indicated By Camilla Goldman Outcomes Met? Yes Last Modified By: Andrew Holly Ii 07/13/24 09:20:16 Post-Care Text: The patient is free from signs and symptoms of infection Departure From OR FT Pre-Care Text: Transports according to individual needs. Evaluates for signs and symptoms of skin and tissue injury as a result of transfer or transport. Entry 1 Via Cart Safety Precautions Side Rails Up PostOp Destination PACU Transported By Andrew Holly Ii Patient Status Stable Report Given Basilio BRODY, Orin To/Hand Off Communication Skin. Condition Intact, [place], Warm, & Description unchanged Dry Airway Maintenance Oxygen in Use? Yes Airway Device Simple Mask Flow Rate 8 L/min Outcomes Met? Yes Last Modified By: Andrew Holly Ii 07/13/24 09:21:24 Post-Care Text: The patient is free from signs and symptoms of injury related to transfer/transport General Comments: handoff report given to internal consultant. /ulysses gutierres Medication Administration FT Pre-Care Text: Verifies allergies, administers prescribed medications and solutions, administers prescribed antibiotic therapy and immunizing agents as ordered, evaluates response to medications Administers prescribed medications and solutions Entry 1 Route of Admin Field Expiration Date Yes Verified Outcomes Met? Yes Last Modified By: Andrew Holly Ii 07/13/24 09:21:31 Post-Care Text: The patient received appropriate medication(s) safely administered during the perioperative period For Connor-Mukesh please see scanned medication reconcilliation form for medications used at the field during the procedure. Temperature Control Entry 1 Temperature Control BLANKET MISTRAL AIR Quantity 1 Aid TORSO Fluid/Sycamore Unit Mistral warming system Setting 43 c/high Body Site Upper anterior torso Last Modified By: Andrew Holly Ii 07/13/24 09:21:49 Sign Out FT Entry 1 Before Patient Leaves OR Nurse verbally Yes Nurse verbally Yes confirms with the confirms with the team the name of team that the procedure(s) instrument, sponge, recorded and needle counts are correct (or N/A) Nurse verbally n/a Nurse verbally Yes confirms with the confirms with the team how the team whether there specimen is labeled are any equipment (including patient problems to be name), if applicable addressed Sign Out Complete 07/13/24 09:07:00 Last Modified By: Andrew Holly Ii 07/13/24 09:22:13 Case Comments <None> Finalized By: Ginna Gonzalez CST Document Signatures Signed By: Andrew Holly Ii 07/13/24 09:22 Ginna Gonzalez CST 07/14/24 10:37 Unfinalized History Date/Time Username Reason for Unfinalizing Freetext Reason for Unfinalizing 07/14/24 10:31 [id number] Other - See Nurses Notes 07/14/24 Chart opened to review and send charges LRoth CSFA MAIN OR PREOPERATIVE RECORD Observed: 9:02 AM Status: F Source: [facility] Main OR Preoperative Record PreOp Document Type FT Summary Primary Physician: ROSETTA ADAMS MD Finalized Date/Time: 07/13/24 09:04:45 Pt. Name: VERO SADLER/Sex: 1950 Female Med Rec #: [id number] Physician: ROSETTA ADAMS MD Financial #: [id number] Pt. Type: A Room/Bed: AS18/ Admit/Disch: 07/13/24 07:02:16 - Institution: Case Times [...] Signed By: Andrew Holly Ii 07/13/24 09:04 MAIN OR PACU I RECORD Observed: 07/14/19 9:02 AM Status: F Source: [facility] Main OR PACU I Record PACU Phase I Document Type FT Summary Primary Physician: ROSETTA ADAMS MD Finalized Date/Time: 07/13/24 09:53:55 Pt. Name: VERO SADLER/Sex: 1950 Female Med Rec #: [id number] Physician: ROSETTA ADAMS MD Financial #: [id number] Pt. Type: A Room/Bed: AS18/01 Admit/Disch: 07/13/24 07:02:16 - Institution: Case Times [...] Signed By: Orin Richmond RN 07/13/24 09:53 MAIN OR PACU II RECORD Observed: 025 9:02 AM Status: F Source: [facility] Main OR PACU II Record PACU Phase II Document Type FT Summary Primary Physician: ROSETTA ADAMS MD Finalized Date/Time: 07/13/24 15:25:20 Pt. Name: EVRO SADLER Tri/Sex: 1950 Female Med Rec #: [id number] Physician: ROSETTA ADAMS MD Financial #: [id number] Pt. Type: A Room/Bed: [place] [address] Admit/Disch: 07/13/24 07:02:16 - 07/13/24 11:00:00 Institution: [...] Signed By: Patricia Garvin RN 07/13/24 15:25 DISCHARGE INSTRUCTIONS Observed: 025 7:02 AM Status: F Source: [facility] Discharge Instructions VERO SADLER :1950 Visit Date:07/13/2024 Inpatient Discharge Instructions Your Care Team Admitting Physician - ROSETTA ADAMS MD Referring Physician - ROSETTA ADAMS MD Reason for Your Visit STRESS INCONTINENCE [...] Appointments after Discharge Follow Up with ROSETTA ADAMS When: Comments: 1 month Medications What How Much When Instructions Next Dose New cephalexin (Keflex 500 mg Cap) 1 Capsules By Mouth Every 12 hours Duration: 5 Days Pickup at [facility]/pharmacy #[id number] New phenazopyridine (Pyridium 100 mg Tab) 1 Tablets By Mouth 3 times a day Duration: 3 Days Pickup at [facility]/pharmacy #[id number] Unchanged albuterol (Albuterol (Eqv-ProAir HFA)) 2 Puffs Inhalation Every 4 hours as needed for Shortness of breath or wheezing Unchanged albuterol (albuterol 0.083% Inh Viviana 3 mL) 3 Milliliter Nebulized inhalation (aerosol) 4 times a day as needed for Shortness of breath or wheezing Unchanged aspirin (aspirin 81 mg Oral EC Tab) 1 Tablets By Mouth Every day Unchanged betamethasone-clotrimazole topical (betamethasone-clotrimazole Top 0.05%-1% Crm 15 gram) Unchanged bumetanide [...] Mouth 2 times a day Pharmacy Information [facility]/pharmacy #[id number]: [address], [place] [phone] Allergies Adhesive Bandage (Hives) Education Materials Common [...] completing your survey. Thank you for choosing [facility] Award Nomination The [employer] (Diseases Attacking the [...] signed up for this yet, please contact [employer] at [phone] to get signed up today. Patient Name: VERO SADLER I have received this information and my questions have been answered. Patient/Eap Counselor Name: Patient/Eap Counselor Signature: Relationship to Patient: Witness Name/Signature: Date: Result Comment: Electronical ly Signed By: Virgie BRODY, Patricia Szymanski\Date and Time Signed: 07/13/24 10:41 EDT PROGRESS NOTE-PHYSICIAN Observed: 2024 2:54 PM Status: F Source: [facility] Progress Note-Physician Patient: VERO SADLER Age: 74 years Sex: [...] Problems Aspirin long-term use / SNOMED CT 3540046510 / Confirmed Atrial fibrillation / SNOMED CT 54933008 / Confirmed Bradycardia / SNOMED CT 22874524 / Confirmed CAD (coronary artery disease) / SNOMED CT 68450891 / Confirmed Chronic kidney disease due to hypertension.. / SNOMED CT 6187791819 / Confirmed Chronic kidney disease stage 3A. / SNOMED CT 0485878128 / Confirmed Chronic kidney disease stage 4 / SNOMED CT 4833223287 / Confirmed Chronic kidney disease, stage 3 / SNOMED CT 7600749593 / Confirmed Chronic obstructive pulmonary disease / SNOMED CT 91623359 / Confirmed Former smoker / SNOMED CT 88610894 / Confirmed History of colon polyps / SNOMED CT 9683324933 / Confirmed History of operative procedure on lumbar spinal structure / SNOMED CT 1207435548 / Confirmed History of tobacco abuse / SNOMED CT 0778195053 / Confirmed Hypercholesterolemia / SNOMED CT 22711486 / Confirmed Hyperkalemia / SNOMED CT 20148484 / Confirmed Hypertension / SNOMED CT 8025376811 / Confirmed Hypertensive disorder / SNOMED CT 2635571679 / Confirmed Hypothyroidism / SNOMED CT 21635507 / Confirmed Morbid obesity / SNOMED CT 968692501 / Confirmed Multiple pulmonary nodules / SNOMED CT 2434251134 / Confirmed Pulmonary hypertension / SNOMED CT 769500445 / Confirmed Spinal stenosis / SNOMED CT 350979250 / Confirmed Stress incontinence, female / SNOMED CT 417334231 / Confirmed Canceled: Kidney stones / SNOMED CT 562569580 pt denies, Active Problems (23) Aspirin long-term [...] history items have been selected or recorded. Family History: Primary malignant neoplasm of colon Father () Asthma Mother () Hypertension Mother () Heart disease Father () Primary malignant neoplasm of rectum Mother () Crohn's disease Mother () Procedure history: Flexible cystoscope ([id number]) on 05/19/2024 at 74 Years. Colonoscopy (procedure) (308893955) on 02/09/2023 at 72 Years. Colonoscopy (529437695) on 07/06/2018 at 68 Years. Hysterectomy (533208871). CEIOL - Cataract extraction and insertion of intraocular lens (7641801684). Foot surgery (1436823135). Social History Social & Psychosocial Habits Alcohol 06/26/2024 Use: Current Type: Wine Frequency: 1-2 times per week Substance Abuse 06/26/2024 Risk Assessment: Denies Substance Abuse Tobacco 06/26/2024 Tobacco Use: Former smoker, quit more Smokeless tobacco use: Never Type: Cigarettes Comment: quit in 2009 - 06/26/2024 13:44 - Alejandra BRODY, Sheri Garcia Physical Examination No qualifying data available Airway: Mallampati classification: II (soft palate, fauces, uvula visible). Respiratory: Lungs are clear to auscultation, Respirations are non-labored, reduced air movement; prolonged expirtatory phase; no wheezing. Cardiovascular: Regular rhythm, No murmur. Review / Management Results review: No qualifying data available . Interpretation: reviewed 2016 cardiac cath, 2021 MPS and TTE, and cardiology note. Plan [place] Society of Anesthesiologists (ASA) physical status classification: Class III. Anesthetic Preoperative Plan: Anesthesia Monitored anethesia care. Result Comment: Electronical ly Signed By: Shahab BELTRÁN, Pedro Randolph\.br\Date and Time Signed: 07/13/24 08:41 EDT UA WITH CULT RFLX Collected: 5 1:56 PM Status: F Source: [facility] TYPE CODE TESTS RESULT OUT OF RANGE REFERENCE UNITS LAB 9194-2([facility]) CLASS:TYPE:PT: URINE COLLECTION METHOD:NOM:* Clean Catch Normal LAB 63962-9([facility]) OBSERVATION:CO TABITHA:PT:URINE:N OM:AUTOMATED Yellow Normal Yellow Result Comment: Microscopic readings are only performed on those samples that meet specific criteria set forth by [facility]. LAB 92151-0([facility]) CLARITY:TYPE:P T:URINE:NOM: Clear Normal Clear LAB 5811-5([facility]) OBSERVATION:SP GRAV:PT:URINE: SEMIQN:TEST STRIP 1.016 Unknown 1.005-1.030 LAB 5803-2(LOINC) PH:LSCNC:PT:UR INE:SEMIQN:JACINTA T STRIP 5.0 Unknown 5.0-9.0 LAB 16613-7(LOINC) PROTEIN:PRTHR: PT:URINE:ORD:T EST STRIP Trace Abnormal Negative mg/dL LAB 96393-8(LOINC) GLUCOSE:PRTHR: PT:URINE:ORD:T EST STRIP Negative Normal Negative mg/dL LAB 18127-2(LOINC) KETONES:PRTHR: PT:URINE:ORD:T EST STRIP.AUTOMATE D Negative Normal Negative mg/dL LAB 68931-0(LOINC) BILIRUBIN:PRTH R:PT:URINE:ORD :TEST STRIP.AUTOMATE D Negative Normal Negative mg/dL LAB 92638-2(LOINC) HEMOGLOBIN:MCN C:PT:URINE:MONICA IQN:TEST STRIP.AUTOMATE D Negative Normal Negative mg/dL LAB 17465-5(LOINC) NITRITE:PRTHR: PT:URINE:ORD:T EST STRIP.AUTOMATE D Negative Normal Negative mg/dL LAB 48485-3(LOINC) UROBILINOGEN:M CNC:PT:URINE:S EMIQN:TEST STRIP Negative Normal Negative mg/dL LAB 60078-6([facility]) LEUKOCYTE ESTERASE:PRTHR :PT:URINE:ORD: TEST STRIP.AUTOMATE D Negative Normal Negative CD:[id number] Performed By: #### [id number] #### [facility] [address] [place] [address] PT & PTT Collected: 5 1:56 PM Status: F Source: [facility] TYPE CODE TESTS RESULT OUT OF RANGE REFERENCE UNITS LAB 5902-2([facility]) COAGULATION TISSUE FACTOR INDUCED:TIME:P T:PPP:QN:COAG 13.0 High 9.4-12.5 second(s ) Result Comment: 15 days - 4 weeks 1 - 5 months 6 -11 months 1 ??? 5 years 6 ??? 10 years 11 -17 years Mean: 11.2 (9.5 ??? 12.6) Mean: 11.0 (9.7 ??? 12.8) Mean: 11.0 (9.8 ??? 13.0) Mean: 11.3 (9.9 ??? 13.4) Mean: 11.7 (10.0 ??? 14.6) Mean: 11.8 (10.0 - 14.1) Pediatric Reference ranges were obtained from a study by karishma Nolasco al. prepared from 1437 samples obtained at 7 different centers using the same coagulation reagent and instrumentation as [facility]. Currently there are no coagulation studies available worldwide for children to 14 days, and no normal ranges. LAB 69341-7(INC) COAGULATION SURFACE INDUCED:TIME:P T:PPP:QN:COAG 34.6 Normal 25.1-36.5 second(s ) Result Comment: Parameter 15 days - 4 weeks 1 - [...] the same coagulation reagent and instrumentation as [facility]. Currently there are no coagulation studies available worldwide for children to 14 days, and no normal ranges. Heparin therapeutic range (represented by Anti-Factor Xa activity of 0.2 - 0.4 U/mL) corresponds to PTT of 56.6 - 109.0 sec. LAB 6301-6([facility]) COAGULATION TISSUE FACTOR INDUCED.INR:RE LTIME:PT:PPP:Q N:COAG 1.16 Unknown Result Comment: INR results are specifically intended to assess patients stabilized on long-term Anticoagulation therapy suggested INR???s ???Less Intensive Anticoagulation??? 2.0 ??? 3.0 Conventional Range 3.0 ??? 4.5 Performed By: #### [id number] #### [facility] [address] [place] [address] EGFR Collected: 5 1:56 PM Status: F Source: [facility] TYPE CODE TESTS RESULT OUT OF RANGE REFERENCE UNITS LAB 93200549([facility]) eGFR 34 Low >=59 mL/min/1 .7 3 m2 Performed By: #### [id number] #### [facility] [address] [place] [address] BMP Collected: 5 1:56 PM Status: F Source: [facility] TYPE CODE TESTS RESULT OUT OF RANGE REFERENCE UNITS LAB 2345-7([facility]) GLUCOSE:MCNC :PT:SER/PLAS :QN: 91 Normal 55-199 mg/dL LAB 3094-0(LOINC) UREA NITROGEN:MCN C:PT:SER/TEGAN S:QN: 24 High 5-21 mg/dL LAB 2160-0(LOINC) CREATININE:M CNC:PT:SER/P LAS:QN: 1.6 High 0.5-1.3 mg/dL LAB 3097-3([facility]) UREA NITROGEN/CRE ATININE:MRTO :PT:SER/PLAS :QN: 15 Normal 10-20 No Units LAB 32395-8([facility]) CALCIUM:MCNC :PT:SER/PLAS :QN: 9.1 Normal 8.9-11.1 mg/dL LAB 2951-2([facility]) SODIUM:SCNC: PT:SER/PLAS: QN: 139 Normal 135-145 mmol/L LAB 2823-3([facility]) POTASSIUM:SC NC:PT:SER/PL :QN: 4.7 Normal 3.5-5.3 mmol/L LAB 2075-0([facility]) CHLORIDE:SCN C:PT:SER/TEGAN S:QN: 107 Normal 101-111 mmol/L LAB 2028-9([facility]) CARBON DIOXIDE:SCNC :PT:SER/PLAS :QN: 26 Normal 21-31 mmol/L LAB 44388-3([facility]) ANION GAP:SCNC:PT: SER/PLAS:QN: CALCULATED 11 Normal 6-16 mEq/L Performed By: #### [id number] # ### [facility] [address] [place] [address] CBC W/ AUTO DIFF Collected: 06/26/2024 1:56 PM Statu s: F Source: [facility] TYPE CODE TESTS RESULT OUT OF RANGE REFERENCE UNITS LAB 53022-6([facility]) LEUKOCYTES^^CO RRECTED FOR NUCLEATED ERYTHROCYTES:N CNC:PT:BLD:QN: AUTOMATED COUNT 7.6 Normal 4.0-11.0 E9/L LAB 789-8([facility]) ERYTHROCYTES:N CNC:PT:BLD:QN: AUTOMATED COUNT 3.8 Low 4.3-5.9 E12/L LAB 718-7([facility]) HEMOGLOBIN:MCN C:PT:BLD:QN: 11.2 Low 12.0-16.0 gm/dL LAB 4544-3([facility]) ERYTHROCYTE/BL OOD:VFR:PT:BLD :QN:AUTOMATED COUNT 34.0 Normal 34.0-46.0 % LAB 788-0([facility]) OBSERVATION:DI STWIDTH:PT:RBC :QN:AUTOMATED COUNT 14.6 High 10.9-14.2 % LAB 785-6([facility]) HEMOGLOBIN:ENT MASS:PT:RBC:QN :AUTOMATED COUNT 29.3 Normal 27.0-34.0 pg LAB 786-4([facility]) HEMOGLOBIN:ENT MCNC:PT:RBC:QN :AUTOMATED COUNT 32.9 Normal 31.4-36.0 gm/dL LAB 787-2([facility]) OBSERVATION:EN TMEANVOL:PT:RB C:QN:AUTOMATED COUNT 89.0 Normal 80.0-100.0 fL LAB 49552-8([facility]) PLATELET:ENTME ANVOL:PT:BLD:Q N:AUTOMATED COUNT 7.6 Normal 6.4-10.8 fL LAB [id number]([facility]) Platelet 241.0 Normal 150.0-500.0 E9/ L LAB 43855-8([facility]) NEUTROPHILS/LE UKOCYTES:NFR:P T:BLD:QN: 69.9 Normal 36.0-75.0 % LAB 731-0([facility]) LYMPHOCYTES:NC NC:PT:BLD:QN:A UTOMATED COUNT 15.1 Normal 14.0-50.0 % LAB 742-7([facility]) MONOCYTES:NCNC :PT:BLD:QN:AUT OMATED COUNT 0.9 Normal 0.2-1.0 E9/L LAB 713-8([facility]) EOSINOPHILS/LE UKOCYTES:NFR:P T:BLD:QN:AUTOM ATED COUNT 1.6 Normal 0.0-8.0 % LAB 704-7([facility]) BASOPHILS:NCNC :PT:BLD:QN:AUT OMATED COUNT 1.2 Normal 0.0-2.0 % LAB 751-8([facility]) NEUTROPHILS:NC NC:PT:BLD:QN:A UTOMATED COUNT 5.3 Normal 2.0-7.5 E9/L LAB 09392-1([facility]) LYMPHOCYTES:NC NC:PT:BLD:QN: 1.2 Normal 1.0-4.0 E9/L LAB 57290-5([facility]) EOSINOPHILS:NC NC:PT:BLD:QN: 0.1 Normal 0.0-0.5 E9/L LAB 13804-6(LOINC) BASOPHILS/LEUK OCYTES:NFR.DF: PT:BLD:QN:AUTO MATED COUNT 0.1 Normal 0.0-0.2 E9/L Performed By: #### [id number] # ### [facility] [address] [place] [address] UROLOGY OFFICE/CLINIC NOTE Observed: 09/2024 9:00 AM Status: F Source: [facility] Urology Office/Clinic Note Chief Complaint Cysto HPI [...] for UCC. 4. 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 No BTs. [...] with voice recognition artificial intelligence software, specifically [employer], [employer] and or [employer]. Substitutions may have occurred due to the [...] Pulmonary hypertension Spinal stenosis Stress incontinence, female Historical No qualifying data Procedure/Surgical History Flexible cystoscope (05/19/2024), Colonoscopy (02/09/2023), Colonoscopy (07/06/2018), CEIOL - Cataract extraction and insertion of intraocular lens, H/O: hysterectomy, Hysterectomy, Procedure, Total hysterectomy. Medications Albuterol (Eqv-ProAir HFA), 2 puff(s), Inhalation, q4hr, PRN albuterol 0.083% Inh Viviana 3 mL, 2.5 mg= 3 mL, NEB, QID, PRN aspirin 81 mg Oral EC Tab, 81 mg= 1 tab(s), Oral, Daily betamethasone-clotrimazole Top 0.05%-1% Crm 15 gram bumetanide 1 mg Tab, 1 mg= 1 tab(s), Oral, Daily carvedilol 25 mg Tab, 12.5 mg= 0.5 tab(s), Oral, BID Cytomel 25 mcg Tab, 25 mcg= 1 tab(s), Oral, Daily diclofenac potassium 50 mg oral tablet, 50 mg= 1 tab(s), Oral, Daily hydrALAZINE 100 mg oral tablet, 100 mg= 1 tab(s), Oral, TID isosorbide dinitrate 10 mg Tab, 10 mg= 1 tab(s), Oral, Daily isosorbide dinitrate 20 mg Tab, 20 mg= 1 tab(s), Oral, Daily levothyroxine 100 mcg (0.1 mg) Tab, 100 mcg= 1 tab(s), Oral, Daily lisinopril 5 mg Tab, 5 mg= 1 tab(s), Oral, Daily lovastatin 20 mg Tab, 20 mg= 1 tab(s), Oral, Daily ondansetron 4 mg Dis Tab, 4 mg= 1 tab(s), Oral, q6hr, PRN Pantoprazole [address] Tab, 40 mg= 1 tab(s), Oral, Daily Allergies Adhesive Bandage (Hives) Social History Tobacco Former smoker, quit more than 30 days ago Tobacco Use:. Never Smokeless Tobacco Use:. Cigarettes, 05/19/2024 Family History Asthma: Mother. Crohn's disease: Mother. Heart disease: Father. Hypertension: Mother. Primary malignant neoplasm of colon: Father. Primary malignant neoplasm of rectum: Mother. Immunizations Vaccine Date Status SARS-CoV-2 (COVID-19) mRNA BNT-162b2 vax 01/07/2021 Recorded SARS-CoV-2 (COVID-19) mRNA BNT-162b2 vax 12/17/2020 Recorded [1] [facility]RO - RESEARCH PROFESSIONAL, referral, JOSE ANTONIO; ROSETTA ADAMS MD 03/31/2024 15:09 EST [2] URO - RESEARCH PROFESSIONAL, referral, JOSE ANTONIO; ROSETTA ADAMS MD 03/31/2024 15:09 EST [3] URO - RESEARCH PROFESSIONAL, referral, JOSE ANTONIO; ROSETTA ADAMS MD 03/31/2024 15:09 EST Result Comment: Electronical ly Signed By: ROSETTA ADAMS MD\.br\Date and Time Signed: 05/19/24 09:40 EST\.br\Electronically Co-Signed By: Elvi Posadas\.br\Date and Time Co-Signed: 05/19/24 09:01 EST PATIENT EDUCATION Observed: 05/19/2024 8:53 AM Status: F Source: [facility] Patient Education Obstetrics and Gynecology Kegel Exercises [...] Reviewed: 07/10/2021 Elsevier Patient Education ? 2023 [employer] PROGRESS Observed: 05/09/2024 11:00 AM Status: COMPLETED Source: [facility] Cardiology Consult Note Reason for visit: follow [...] kidney disease COPD (chronic obstructive pulmonary disease) ([facility] Hypertension Myocardial infarction ([facility]) Obstructive sleep apnea 10/02/2022 SOBIA=17.7 events/hour; Pranav SaO2=76%; Kyufqo=721.0 lbs; BMI=52.7 kg/m2, Home Sleep Apnea Testing on 09/25/2022 at [facility] PSH: Past Surgical History: Procedure Laterality Date CARDIAC CATHETERIZATION COLONOSCOPY 02/09/2023 EYE SURGERY CATARACT FOOT SURGERY Right tendon repair HYSTERECTOMY INSERT / REPLACE / REMOVE PACEMAKER 01/12/2023 OTHER SURGICAL HISTORY Bilateral 05/31/2023 S1 TFESI - 20% pain relief SH: Social Determinants of Health Tobacco Use: Low Risk (05/09/2024) Received from [facility] Patient History Smoking Tobacco Use: Never Smokeless [...] Connections: Not on file Intimate Partner Violence: Unknown (07/09/2023) Humiliation, Afraid, Rape, and Kick questionnaire Fear of Current or Ex-Partner: No Emotionally Abused: Not on file Physically Abused: Not on file Sexually Abused: Not on file Depression: Not at risk (07/20/2023) PHQ-2 PHQ-2 Score: 0 Housing Stability: Low Risk (01/05/2023) Housing Stability Vital Sign Unable to Pay for Housing in the Last Year: Not on file Number of Places Lived in the Last Year: Not on file Unstable Housing in the Last Year: No Utilities: Not on file Health Literacy: Not on file Allergies: Allergies Allergen Reactions Penicillins Other Yeast infection Weight: 134kg Visit Vitals BP (!) 187/90 (BP Location: Left wrist, Patient Position: Sitting) Pulse 83 Ht 1.626 m (5' 4 ) Wt 134 kg (295 lb) LMP (LMP Unknown) SpO2 97% BMI 50.64 kg/m??? OB Status Hysterectomy Smoking Status Former BSA 2.46 m??? Meds: Current Outpatient Medications on File [...] morning. 90 tablet 3 calcium carbonate-vitamin D3 (Calcium with Vitamin D) 600 mg-10 mcg (400 unit) tablet Take 2 tablets by mouth in the morning. 60 tablet 11 carvedilol (Coreg) 12.5 mg tablet Take 1 tablet (12.5 mg) by mouth in the morning and at bedtime. 60 tablet 0 hydrALAZINE (Apresoline) 100 mg tablet Take 100 mg by mouth in the morning, at noon, and at bedtime. levothyroxine (Synthroid, Levoxyl) 100 mcg tablet Take 100 mcg by mouth before breakfast. liothyronine (Cytomel) 25 mcg tablet Take 1.5 tablets by mouth in the morning. lisinopril 10 mg tablet TAKE 1 TABLET BY MOUTH EVERY DAY IN THE MORNING 90 tablet 3 lovastatin (Mevacor) 20 mg tablet Take 20 mg by mouth in the morning. pantoprazole (ProtoNix) 40 mg EC tablet TAKE 1 TABLET BY MOUTH ONCE EVERYDAY BEFORE BREAKFAST *DO NOT CRUSH/CHEW/SPLIT* 90 tablet 1 revefenacin (Yupelri) 175 mcg/3 mL nebulizer solution Take 175 mcg by nebulization if needed each day. traMADol (Ultram) 50 mg tablet TAKE 1 TABLET BY MOUTH TWICE A DAY NEEDED FOR 30 DAYS methylcellulose, laxative, (CitruceL Sugar Free) powder Mix 1 tablespoon in 8 oz (240 mL) of cold water. Take by mouth once daily. Increase frequency as needed up to 3 times daily. Start with a low dose and slowly increase to prevent worse bloating. 479 g 3 [DISCONTINUED] diclofenac (Voltaren) 75 mg EC tablet Take 75 mg by mouth in the morning and at bedtime. Do not crush, chew, or split. [DISCONTINUED] hyoscyamine (Levsin/SL) 0.125 mg SL tablet every 6 (six) hours if needed. No current facility-administered medications on file prior to visit. ROS: Review of Systems Constitutional: Positive for malaise/fatigue. Cardiovascular: Positive for chest pain ( pressure ) and leg swelling. Hematologic/Lymphatic: Bruises/bleeds easily. Musculoskeletal: Positive for back pain, muscle weakness and myalgias. Gastrointestinal: Positive for heartburn. Neurological: Positive for headaches. All other systems reviewed and are negative. Physical Exam: Constitutional General Appearance: well-nourished, well-developed, appears stated age Level of Distress: comfortable Psychiatric Mental Status: alert, normal affect Orientation: oriented to time, place, and person Insight: good judgement Eyes Lids and Conjunctivae: non-injected, no xanthelasma ENMT Ears: no lesions on external ear Nose: no lesions on external nose Oropharynx: no cyanosis, no pallor Neck Neck: supple, trachea midline Carotid Arteries: bilateral normal upstroke, no bruits Jugular Veins: normal jugular venous pressure Thyroid: not enlarged Lungs Respiratory Effort: unlabored Chest Exam: normal curvature, no thoracic deformity Auscultation: clear, no wheezing, no rales, no rhonchi Cardiovascular Rate And Rhythm: regular Heart Sounds: normal S1, normal s2, no gallop Systolic Murmur: not heard Diastolic Murmur: not heard Extremities: no cyanosis, no edema, no peripheral signs of emboli Peripheral Pulses Radial Pulse: normal Abdomen Inspection and Palpation: soft, non distended, no bruit, non tender Musculoskeletal Inspection: no joint swelling Neurologic Gait: normal gait Skin Inspection and Palpation: warm and dry Nails: no clubbing Labs: @LABRESULTS@ Lab Results Component Value Date TSH 0.03 (L) 07/09/2023 EKG: No results found for this or any previous visit (from the past 4464 hour(s)). Echo: Stress test: Coronary angiogram: @CATH@ Diagnostic Imaging: No images are attached to the encounter. Assessment and Plan: - s/p PPM for bradycardia - NSVT - Paroxysmal non sustained AT - CAD - CKD stage 3-4 Pt doing well. This am BP is high as she has not taken her meds. Will continue to monitor her. Irvin Posada MD Cardiac Electrophysiology [facility] OFFICE VISIT Observed: 05/09/2024 11:00 AM Status: COMPLETED Source: [facility] [id number] Vero Sadler 10/1949 F Date Provider Department Center 05/09/2024 241-IRVIN POSADA CARD [facility] Family History Problem Relation Age of Onset Other Mother Coronary artery disease Mother Other Mother Other Mother Other Father Hypertension Father Hyperlipidemia Father Other Daughter Family Status - Relation Status Age at Mother Father Daughter Level of Service:23616 SD OFFICE/OUTPATIENT ESTABLISHED LOW MDM 20 MIN AMBULATORY VISIT SUMMARY Observed: 03/31 3:16 PM Status: F Source: [facility] Ambulatory Visit Summary VERO SADLER :1950 Visit Date:03/31/2024 Ambulatory Visit Instructions Your Diagnosis Stress incontinence, female Kidney stones Former smoker Aspirin long-term use Your Care Team Attending Physician - ROSETTA ADAMS MD Primary Care Physician - Debbie Arvizu MD Referring Physician - Debbie Arvizu MD This Is Your Medications List Contact prescribing physician if questions or concerns albuterol (Albuterol (Eqv-ProAir HFA)) albuterol (albuterol 0.083% Inh Viviana 3 mL) aspirin (aspirin 81 mg Oral EC Tab) betamethasone-clotrimazole topical (betamethasone-clotrimazole Top 0.05%-1% Crm 15 gram) bumetanide (bumetanide [...] Schedule the Following Appointments Follow Up with ROSETTA ADAMS MD, URL When: Where: Medications What How Much When [...] prescribing physician if questions or concerns Unchanged betamethasone-clotrimazole topical (betamethasone-clotrimazole Top 0.05%-1% Crm 15 gram) Contact prescribing [...] female Patient Survey You may receive a survey via text or e-mail asking about your office visit. Please share your experience with us by completing your survey. We appreciate your feedback and thank you for choosing us for your care. Education Materials Cystoscopy Cystoscopy is a procedure that is [...] including vitamins, herbs, eye drops, creams, and vxhc-rwc-vdcfxdt medicines. ??? Any problems you or family [...] tells you to take them. ??? Taking gieg-uzz-mkouvoj medicines, vitamins, herbs, and supplements. Tests You may have an exam or testing, such as: ??? X-rays of the bladder, urethra, or kidneys. ??? CT scan of the abdomen or pelvis. ??? Urine tests to check for signs of infection. General instructions ??? Follow instructions from your health care provider about eating or drinking restrictions. ??? Ask your health care provider what steps will be taken to help prevent infection. These steps may include: ? Washing skin with a germ-killing soap. ? Taking antibiotic medicine. ??? Plan to have a responsible adult take you home from the hospital or clinic. What happens during the procedure? You will be given one or more of the following: ? A medicine to help you relax (sedative). ? A medicine to numb the area (local anesthetic). ??? The area around the opening of your urethra will be cleaned. ??? The cystoscope will be passed through your urethra into your bladder. ??? Germ-free (sterile) fluid will flow through the cystoscope to fill your bladder. The fluid will stretch your bladder so that your health care provider can clearly examine your bladder shah. ??? Your doctor will look at the urethra and bladder. Your doctor may take a biopsy or remove stones. ??? The cystoscope will be removed, and your bladder will be emptied. The procedure may vary among health care providers and hospitals. What can I expect after the procedure? After the procedure, it is common to have: ??? Some soreness or pain in your abdomen and urethra. ??? Urinary symptoms. These include: ? Mild pain or burning when you urinate. Pain should stop within a few minutes after you urinate. This may last for up to 1 week. ? A small amount of blood in your urine for several days. ? Feeling like you need to urinate but producing only a small amount of urine. Follow these instructions at home: Medicines ??? Take cvpq-wfb-idijiuz and prescription medicines only as told by your health care provider. ??? If you were prescribed an antibiotic medicine, take it as told by your health care provider. Do not stop taking the antibiotic even if you start to feel better. General instructions ??? Return to your normal activities as told by your health care provider. Ask your health care provider what activities are safe for you. ??? If you were given a sedative during the procedure, it can affect you for several hours. Do not drive or operate machinery until your health care provider says that it is safe. ??? Watch for any blood in your urine. If the amount of blood in your urine increases, call your health care provider. ??? Follow instructions from your health care provider about eating or drinking restrictions. ??? If a tissue sample was removed for testing (biopsy) during your procedure, it is up to you to get your test results. Ask your health care provider, or the department that is doing the test, when your results will be ready. ??? Drink enough fluid to keep your urine pale yellow. ??? Keep all follow-up visits. This is important. Contact a health care provider if: ??? You have pain that gets worse or does not get better with medicine, especially pain when you urinate. ??? You have trouble urinating. ??? You have more blood in your urine. Get help right away if: ??? You have blood clots in your urine. ??? You have abdominal pain. ??? You have a fever or chills. ??? You are unable to urinate. Summary ??? Cystoscopy is a procedure that is used to help diagnose and sometimes treat conditions that affect the lower urinary tract. ??? Cystoscopy is done using a thin, tube-shaped instrument with a light and camera at the end. ??? After the procedure, it is common to have some soreness or pain in your abdomen and urethra. ??? Watch for any blood in your urine. If the amount of blood in your urine increases, call your health care provider. ??? If you were prescribed an antibiotic medicine, [...] provider. Document Revised: 11/12/2021 Document Reviewed: 10/11/2020 [employer] Patient Education ??? 2023 [employer] Injection Treatments for Urinary Incontinence Urinary incontinence [...] surgery. Tell a health care provider about: ??? Any allergies you have. ??? All medicines you are taking, including vitamins, herbs, eye drops, creams, and dvdp-jvp-lpvknab medicines. ??? Any problems you or family members have had with anesthetic medicines. ??? Any blood disorders you have. ??? Any surgeries you have had. ??? Any medical conditions you have. ??? Whether you are or may be . What are the risks? Generally, this is a safe procedure. However, problems may occur, including: ??? Infection. ??? Bleeding. ??? Allergic reaction to medicines or to the bulking agent. ??? Damage to the urethra or bladder. ??? Difficulty passing urine. ??? A strong and uncomfortable urge to pass urine (urgency). ??? Pain when passing urine or having sex. ??? Failure of the procedure to treat incontinence. ??? A need to repeat the procedure at a later time. What happens before the procedure? Staying hydrated Follow instructions from your health care provider about hydration, which may include: ??? Up to 2 hours before the procedure ??? you may continue to drink clear liquids, such as water, clear fruit juice, black coffee, and plain tea. Eating and drinking restrictions Follow instructions from your health care provider about eating and drinking, which may include: ??? 8 hours before the procedure ??? stop eating heavy meals or foods, such as meat, fried foods, or fatty foods. ??? 6 hours before the procedure ??? stop eating light meals or foods, such as toast or cereal. ??? 6 hours before the procedure ??? stop drinking milk or drinks that contain milk. ??? 2 hours before the procedure ??? stop drinking clear liquids. Medicines Ask your health care provider about: ??? Changing or stopping your regular medicines. This is especially important if you are taking diabetes medicines or blood thinners. ??? Taking medicines such as aspirin and ibuprofen. These medicines can thin your blood. Do not take these medicines unless your health care provider tells you to take them. ??? Taking jfgf-oxa-tbgilza medicines, vitamins, herbs, and supplements. General instructions ??? Ask your health care provider what steps will be taken to help prevent infection. These steps may include: ? Removing hair at the surgery site. ? Washing skin with a germ-killing soap. ? Taking antibiotic medicine. ??? You may need to have a series of tests done to learn more about your bladder control (urodynamic testing). ??? Plan to have a responsible adult take you home from the hospital or clinic. ??? Plan to have a responsible adult care for you for the time you are told after you leave the hospital or clinic. This is important. What happens during the procedure? An IV may be inserted into one of your veins. ??? You may be given one or more of the following: ? A medicine to help you relax (sedative). ? A medicine to numb your urethra and bladder area (local anesthetic). ? A medicine to make you fall asleep (general anesthetic). ??? A small, thin tube (catheter) may be inserted through your urethra into your bladder. ??? A long, thin tube with a light and camera (cystoscope) will be placed into your urethra and moved up toward your bladder. The camera sends images to a screen in the room. These images will be used to help guide the procedure. ??? A long needle will be threaded through the cystoscope. ??? Bulking material will be injected into the tissues around your urethra, near your urinary sphincter. ??? The cystoscope and needle will be removed. The procedure may vary among health care providers and hospitals. What happens after the procedure? Your blood pressure, heart rate, breathing rate, and blood oxygen level will be monitored until you leave the hospital or clinic. ??? If you have a catheter in your urethra, it will be removed to see if you can pass urine. If you have trouble passing urine, a new catheter may be inserted and left in place for a few days. ??? Your bladder may be filled with fluid through your catheter to check for any problems in the bladder. ??? You may be given antibiotic medicine to take at home. ??? If you were given a sedative during the procedure, it can affect you for several hours. Do not drive or operate machinery until your health care provider says that it is safe. Summary ??? Urinary incontinence is when you cannot control when you pass urine. The muscle that normally keeps urine from leaking may be weak. ??? Urinary incontinence is a common problem for women who have had pregnancies or certain surgeries, such as a hysterectomy, and for men who have had prostate surgery. ??? To treat this condition, a bulking agent can be injected either into the urethra or into the bladder neck. This information is not intended to replace advice given to you by your health care provider. Make sure you discuss any questions you have with your health care provider. Document Revised: 10/04/2020 Document Reviewed: 10/04/2020 [employer] Patient Education ??? 2023 Seen. Kegel Exercises Kegel exercises can help strengthen [...] to do this exercise for at least 4???6 weeks, or for as long as told [...] provider. Document Revised: 07/10/2021 Document Reviewed: 07/10/2021 [employer] Patient Education ??? 2023 Seen. UROLOGY OFFICE/CLINIC NOTE Observed: 3:09 PM Status: F Source: [facility] Urology Office/Clinic Note Chief Complaint New Pt [...] gross hematuria. 4. Aspirin long-term use (Z79.82: USP (current) use of aspirin) ASA. No BTs. [...] with voice recognition artificial intelligence software, specifically [employer], [employer] and or [employer]. Substitutions may have occurred due to the [...] Pulmonary hypertension Spinal stenosis Stress incontinence, female Historical No qualifying data Procedure/Surgical History Colonoscopy (02/09/2023), Colonoscopy (07/06/2018), CEIOL - Cataract extraction and insertion of intraocular lens, H/O: hysterectomy, Hysterectomy, Procedure, Total hysterectomy. Medications Albuterol (Eqv-ProAir HFA), 2 puff(s), Inhalation, q4hr, PRN albuterol 0.083% Inh Viviana 3 mL, 2.5 mg= 3 mL, NEB, QID, PRN aspirin 81 mg Oral EC Tab, 81 mg= 1 tab(s), Oral, Daily betamethasone-clotrimazole Top 0.05%-1% Crm 15 gram bumetanide 1 mg Tab, 1 mg= 1 tab(s), Oral, Daily carvedilol 25 mg Tab, 12.5 mg= 0.5 tab(s), Oral, BID Cytomel 25 mcg Tab, 25 mcg= 1 tab(s), Oral, Daily diclofenac potassium 50 mg oral tablet, 50 mg= 1 tab(s), Oral, Daily hydrALAZINE 100 mg oral tablet, 100 mg= 1 tab(s), Oral, TID isosorbide dinitrate 10 mg Tab, 10 mg= 1 tab(s), Oral, Daily isosorbide dinitrate 20 mg Tab, 20 mg= 1 tab(s), Oral, Daily levothyroxine 100 mcg (0.1 mg) Tab, 100 mcg= 1 tab(s), Oral, Daily lisinopril 5 mg Tab, 5 mg= 1 tab(s), Oral, Daily lovastatin 20 mg Tab, 20 mg= 1 tab(s), Oral, Daily ondansetron 4 mg Dis Tab, 4 mg= 1 tab(s), Oral, q6hr, PRN Pantoprazole [address] Tab, 40 mg= 1 tab(s), Oral, Daily Allergies Adhesive Bandage (Hives) Social History Tobacco Former smoker, quit more than 30 days ago Tobacco Use:. Never Smokeless Tobacco Use:. Cigarettes, 03/31/2024 Family History Asthma: Mother. Crohn's disease: Mother. Heart disease: Father. Hypertension: Mother. Primary malignant neoplasm of colon: Father. Primary malignant neoplasm of rectum: Mother. Immunizations Vaccine Date Status SARS-CoV-2 (COVID-19) mRNA BNT-162b2 vax 01/07/2021 Recorded SARS-CoV-2 (COVID-19) mRNA BNT-162b2 vax 12/17/2020 Recorded Lab Results Ambulatory Point of Care Results Bilirubin Urine Dipstick: 1+ Small (03/31/24 14:49:00) Blood Urine Dipstick: Negative (03/31/24 14:49:00) Glucose Urine Dipstick: Negative (03/31/24 14:49:00) Ketones Urine Dipstick: Negative (03/31/24 14:49:00) Leukocytes Urine Dipstick: Negative (03/31/24 14:49:00) Nitrite Urine Dipstick: Negative (03/31/24 14:49:00) Protein Urine Dipstick: 1+ (30 mg/dl) (03/31/24 14:49:00) Specific Dixie Urine Dipstick: 1.025 (03/31/24 14:49:00) Urine Appearance Urine Dipstick: Clear (03/31/24 14:49:00) Urine Color Urine Dipstick: Yellow (03/31/24 14:49:00) Urobilinogen Urine Dipstick: Normal 0.2-1 EU/dl (03/31/24 14:49:00) pH Urine Dipstick: 5.5 (03/31/24 14:49:00) Result Comment: Electronical ly Signed By: ROSETTA ADAMS MD\.br\Date and Time Signed: 03/31/24 15:13 EST\.br\Electronically Co-Signed By: Elvi Posadas\.br\Date and Time Co-Signed: 03/31/24 15:10 EST\.br\Electronically Co-Signed By: Elvi Posadas\.br\Date and Time Co-Signed: 03/31/24 15:10 EST PATIENT EDUCATION Observed: 03/31/2024 3:09 PM Status: C Source: [facility] Patient Education Obstetrics and Gynecology Kegel Exercises [...] Reviewed: 07/10/2021 Elsevier Patient Education ? 2023 [employer]Urology Cystoscopy Cystoscopy is a procedure that is [...] including vitamins, herbs, eye drops, creams, and tnba-ruc-rbocwng medicines. ??? Any problems you or family [...] tells you to take them. ??? Taking qyvc-poa-vckawdr medicines, vitamins, herbs, and supplements. Tests You may have an exam or testing, such as: ??? X-rays of the bladder, urethra, or kidneys. ??? CT scan of the abdomen or pelvis. ??? Urine tests to check for signs of infection. General instructions ??? Follow instructions from your health care provider about eating or drinking restrictions. ??? Ask your health care provider what steps will be taken to help prevent infection. These steps may include: ? Washing skin with a germ-killing soap. ? Taking antibiotic medicine. ??? Plan to have a responsible adult take you home from the hospital or clinic. What happens during the procedure? You will be given one or more of the following: ? A medicine to help you relax (sedative). ? A medicine to numb the area (local anesthetic). ??? The area around the opening of your urethra will be cleaned. ??? The cystoscope will be passed through your urethra into your bladder. ??? Germ-free (sterile) fluid will flow through the cystoscope to fill your bladder. The fluid will stretch your bladder so that your health care provider can clearly examine your bladder shah. ??? Your doctor will look at the urethra and bladder. Your doctor may take a biopsy or remove stones. ??? The cystoscope will be removed, and your bladder will be emptied. The procedure may vary among health care providers and hospitals. What can I expect after the procedure? After the procedure, it is common to have: ??? Some soreness or pain in your abdomen and urethra. ??? Urinary symptoms. These include: ? Mild pain or burning when you urinate. Pain should stop within a few minutes after you urinate. This may last for up to 1 week. ? A small amount of blood in your urine for several days. ? Feeling like you need to urinate but producing only a small amount of urine. Follow these instructions at home: Medicines ??? Take dfpb-kfg-oplbhtv and prescription medicines only as told by your health care provider. ??? If you were prescribed an antibiotic medicine, take it as told by your health care provider. Do not stop taking the antibiotic even if you start to feel better. General instructions ??? Return to your normal activities as told by your health care provider. Ask your health care provider what activities are safe for you. ??? If you were given a sedative during the procedure, it can affect you for several hours. Do not drive or operate machinery until your health care provider says that it is safe. ??? Watch for any blood in your urine. If the amount of blood in your urine increases, call your health care provider. ??? Follow instructions from your health care provider about eating or drinking restrictions. ??? If a tissue sample was removed for testing (biopsy) during your procedure, it is up to you to get your test results. Ask your health care provider, or the department that is doing the test, when your results will be ready. ??? Drink enough fluid to keep your urine pale yellow. ??? Keep all follow-up visits. This is important. Contact a health care provider if: ??? You have pain that gets worse or does not get better with medicine, especially pain when you urinate. ??? You have trouble urinating. ??? You have more blood in your urine. Get help right away if: ??? You have blood clots in your urine. ??? You have abdominal pain. ??? You have a fever or chills. ??? You are unable to urinate. Summary ??? Cystoscopy is a procedure that is used to help diagnose and sometimes treat conditions that affect the lower urinary tract. ??? Cystoscopy is done using a thin, tube-shaped instrument with a light and camera at the end. ??? After the procedure, it is common to have some soreness or pain in your abdomen and urethra. ??? Watch for any blood in your urine. If the amount of blood in your urine increases, call your health care provider. ??? If you were prescribed an antibiotic medicine, [...] provider. Document Revised: 11/12/2021 Document Reviewed: 10/11/2020 [employer] Patient Education ? 2023 [employer]Injection Treatments for Urinary Incontinence Urinary incontinence is [...] surgery. Tell a health care provider about: ??? Any allergies you have. ??? All medicines you are taking, including vitamins, herbs, eye drops, creams, and whjb-pzt-chnwdve medicines. ??? Any problems you or family members have had with anesthetic medicines. ??? Any blood disorders you have. ??? Any surgeries you have had. ??? Any medical conditions you have. ??? Whether you are or may be . What are the risks? Generally, this is a safe procedure. However, problems may occur, including: ??? Infection. ??? Bleeding. ??? Allergic reaction to medicines or to the bulking agent. ??? Damage to the urethra or bladder. ??? Difficulty passing urine. ??? A strong and uncomfortable urge to pass urine (urgency). ??? Pain when passing urine or having sex. ??? Failure of the procedure to treat incontinence. ??? A need to repeat the procedure at a later time. What happens before the procedure? Staying hydrated Follow instructions from your health care provider about hydration, which may include: ??? Up to 2 hours before the procedure ? you may continue to drink clear liquids, such as water, clear fruit juice, black coffee, and plain tea. Eating and drinking restrictions Follow instructions from your health care provider about eating and drinking, which may include: ??? 8 hours before the procedure ? stop eating heavy meals or foods, such as meat, fried foods, or fatty foods. ??? 6 hours before the procedure ? stop eating light meals or foods, such as toast or cereal. ??? 6 hours before the procedure ? stop drinking milk or drinks that contain milk. ??? 2 hours before the procedure ? stop drinking clear liquids. Medicines Ask your health care provider about: ??? Changing or stopping your regular medicines. This is especially important if you are taking diabetes medicines or blood thinners. ??? Taking medicines such as aspirin and ibuprofen. These medicines can thin your blood. Do not take these medicines unless your health care provider tells you to take them. ??? Taking ktwe-zwa-oxcbnhu medicines, vitamins, herbs, and supplements. General instructions ??? Ask your health care provider what steps will be taken to help prevent infection. These steps may include: ? Removing hair at the surgery site. ? Washing skin with a germ-killing soap. ? Taking antibiotic medicine. ??? You may need to have a series of tests done to learn more about your bladder control (urodynamic testing). ??? Plan to have a responsible adult take you home from the hospital or clinic. ??? Plan to have a responsible adult care for you for the time you are told after you leave the hospital or clinic. This is important. What happens during the procedure? An IV may be inserted into one of your veins. ??? You may be given one or more of the following: ? A medicine to help you relax (sedative). ? A medicine to numb your urethra and bladder area (local anesthetic). ? A medicine to make you fall asleep (general anesthetic). ??? A small, thin tube (catheter) may be inserted through your urethra into your bladder. ??? A long, thin tube with a light and camera (cystoscope) will be placed into your urethra and moved up toward your bladder. The camera sends images to a screen in the room. These images will be used to help guide the procedure. ??? A long needle will be threaded through the cystoscope. ??? Bulking material will be injected into the tissues around your urethra, near your urinary sphincter. ??? The cystoscope and needle will be removed. The procedure may vary among health care providers and hospitals. What happens after the procedure? Your blood pressure, heart rate, breathing rate, and blood oxygen level will be monitored until you leave the hospital or clinic. ??? If you have a catheter in your urethra, it will be removed to see if you can pass urine. If you have trouble passing urine, a new catheter may be inserted and left in place for a few days. ??? Your bladder may be filled with fluid through your catheter to check for any problems in the bladder. ??? You may be given antibiotic medicine to take at home. ??? If you were given a sedative during the procedure, it can affect you for several hours. Do not drive or operate machinery until your health care provider says that it is safe. Summary ??? Urinary incontinence is when you cannot control when you pass urine. The muscle that normally keeps urine from leaking may be weak. ??? Urinary incontinence is a common problem for women who have had pregnancies or certain surgeries, such as a hysterectomy, and for men who have had prostate surgery. ??? To treat this condition, a bulking agent can be injected either into the urethra or into the bladder neck. This information is not intended to replace advice given to you by your health care provider. Make sure you discuss any questions you have with your health care provider. Document Revised: 10/04/2020 Document Reviewed: 10/04/2020 [employer] Patient Education ? 2023 Seen. PROGRESS Observed: 01/26/2024 1:00 PM Status: COMPLETED Source: [facility] Cardiology Clinic Note Chief Complaint: Patient is here today for follow up [facility] ED visit. She was having chest [...] to prevent worse bloating., Disp: 479 g, Rfl: 3 Last Recorded Vitals Ht 1.626 m (5' 4 ) Wt 133 kg (293 lb) LMP (LMP Unknown) BMI 50.29 kg/m??? BP 128/60 (BP Location: Left wrist, Patient Position: Sitting) Pulse 71 Ht 1.626 m (5' 4 ) Wt 133 kg (293 lb) LMP (LMP Unknown) SpO2 98% BMI 50.29 kg/m??? Physical Examination: GENERAL: alert and oriented [...] ischemic dilation 6. Normal exercise stress test EP assessment - NSVT - Paroxysmal non sustained AT - CAD - CKD stage 3-4 Given NSVT and concern of fixed scar, pt cannot undergo MRI due to CKD preventing her receiving Gadolinum contrast. So will proceed with EPS for VT. IMPRESSION: 1. EP study with and no inducible VT 2. No inducible tachycardia RECOMMENDATIONS: 1. Follow up with EP as needed. 2. LOOP monitor if symptoms persist. Irvin Posada MD Cardiac Electrophysiology Assessment: Epigastric pain - likely GERD/PUD Benign hypertensive heart and CKD, stage 3 (GFR 30-59), w CHF (CMS/[facility]) s.cr 1.69 (02/2022) Bradycardia NSVT Palpitations Paroxysmal nonsustained atrial tachycardia Myocardial bridging Plan: Reassurance; the characteristics of her epigastric discomfort appear to be noncardiac in nature. She likely has gastroesophageal reflux disease plus or minus peptic ulcer disease. He has been started on a medication by her family physician. Consider referral to gastroenterology as clinically warranted. No cardiac testing from an interventional standpoint is warranted at this juncture. Continue medical therapy. Device interrogation per protocol. Follow-up with Dr. Posada and our EP colleagues for long-term cardiovascular care. I will be happy to see her on an as-needed basis Tato Salcido MD, MPH, FACC, [facility], [facility] Interventional Cardiology Pager Email: [email or web address] OFFICE VISIT Observed: 01/26/2024 1:00 PM Status: COMPLETED Source: [facility] [id number] Vero Sadler F Date Provider Department Center 01/26/2024 Jj-TATO SALCIDO CARD [facility] Family History Problem Relation Age of Onset Other Mother Coronary artery disease Mother Other Mother Other Mother Other Father Hypertension Father Hyperlipidemia Father Other Daughter Family Status - Relation Status Age at Mother Father Daughter Level of Service:28291 SD OFFICE/OUTPATIENT ESTABLISHED LOW MDM 20 MIN NURSNOTE Observed: 11/23/2023 1:19 PM Status: COMPLETED Source: [facility] Ced from [employer] prepped pacemaker. Patient verbalizes no issues with device. Monitor hooked up for continuous patient monitoring throughout the scan. MR LUMBAR SPINE WO CONTRAST Observed: 12:34 PM Status: UNK Source: [facility] Order Comment: ORDER IN [facility] MR LUMBAR SPINE WO CONTRAST 11/23/2023 12:56 [...] of the abdominal aorta with eccentric plaque. DEGENERATIVE/POSTSURGICAL FINDINGS: Intraspinous device is present at L3-L4 [...] foraminal narrowing. Electronically signed: Arnol Cutler MD. PROGRESS Observed: 10/26/2023 11:45 AM Status: COMPLETED Source: [facility] Cardiology Consult Note Reason for visit: follow [...] sleep apnea 10/02/2022 SOBIA=17.7 events/hour; Pranav SaO2=76%; Aktilj=685.0 lbs; BMI=52.7 kg/m2, Home Sleep Apnea Testing on 09/25/2022 at [facility] PSH: Past Surgical History: Procedure Laterality [...] Allergen Reactions Penicillins Other Yeast infection Weight: 133kg Visit Vitals BP 147/72 (BP Location: Left wrist, Patient Position: Sitting) Pulse 73 Ht 1.626 m (5' 4 ) Wt 133 kg (294 lb) LMP (LMP Unknown) SpO2 97% BMI 50.46 kg/m??? OB Status Hysterectomy Smoking Status Former BSA 2.45 m??? Meds: Current Outpatient Medications on File [...] morning. 90 tablet 3 calcium carbonate-vitamin D3 (Calcium with Vitamin D) 600 mg-10 mcg (400 unit) tablet Take 2 tablets by mouth in the morning. 60 tablet 11 clotrimazole-betamethasone (Lotrisone) cream APPLY SMALL AMOUNT TO AFFECTED AREA EXTERNALLY TWICE A DAY *USE SPARINGLY* hydrALAZINE (Apresoline) 100 mg tablet Take 100 mg by mouth in the morning, at noon, and at bedtime. hyoscyamine (Levsin/SL) 0.125 mg SL tablet every 6 (six) hours if needed. levothyroxine (Synthroid, Levoxyl) 100 mcg tablet Take 100 mcg by mouth before breakfast. 1 1/2 tabs liothyronine (Cytomel) 25 mcg tablet Take 1 tablet by mouth in the morning. lisinopril 10 mg tablet Take 1 tablet (10 mg) by mouth in the morning. 90 tablet 3 lovastatin (Mevacor) 20 mg tablet Take 20 mg by mouth in the morning. pantoprazole (ProtoNix) 40 mg EC tablet TAKE 1 TABLET BY MOUTH ONCE EVERYDAY BEFORE BREAKFAST *DO NOT CRUSH/CHEW/SPLIT* 90 tablet 1 traMADol (Ultram) 50 mg tablet TAKE 1 TABLET BY MOUTH TWICE A DAY NEEDED FOR 30 DAYS carvedilol (Coreg) 12.5 mg tablet Take 1 tablet (12.5 mg) by mouth in the morning and at bedtime. 60 tablet 0 diclofenac (Voltaren) 75 mg EC tablet Take 75 mg by mouth in the morning and at bedtime. Do not crush, chew, or split. methylcellulose, laxative, (CitruceL Sugar Free) powder Mix [...] the morning, afternoon, and at bedtime. omega 6-nsh-ykx-fish oil 350 mg-235 mg- 90 mg-597 mg capsule,delayed release(DR/EC) Take 1 capsule by mouth in the morning. revefenacin (Yupelri) 175 mcg/3 mL nebulizer solution Take 175 mcg by nebulization if needed each day. No current facility-administered medications on file prior to visit. ROS: Review of Systems Cardiovascular: Positive for dyspnea on exertion and leg swelling. Respiratory: Positive for snoring. Hematologic/Lymphatic: Bruises/bleeds easily. Musculoskeletal: Positive for back pain, muscle weakness and myalgias. Neurological: Positive for headaches. All other systems reviewed and are negative. Physical Exam: Constitutional General Appearance: well-nourished, well-developed, appears stated age Level of Distress: comfortable Psychiatric Mental Status: alert, normal affect Orientation: oriented to time, place, and person Insight: good judgement Eyes Lids and Conjunctivae: non-injected, no xanthelasma ENMT Ears: no lesions on external ear Nose: no lesions on external nose Oropharynx: no cyanosis, no pallor Neck Neck: supple, trachea midline Carotid Arteries: bilateral normal upstroke, no bruits Jugular Veins: normal jugular venous pressure Thyroid: not enlarged Lungs Respiratory Effort: unlabored Chest Exam: normal curvature, no thoracic deformity Auscultation: clear, no wheezing, no rales, no rhonchi Cardiovascular Rate And Rhythm: regular Heart Sounds: normal S1, normal s2, no gallop Systolic Murmur: not heard Diastolic Murmur: not heard Extremities: no cyanosis, no edema, no peripheral signs of emboli Peripheral Pulses Radial Pulse: normal Abdomen Inspection and Palpation: soft, non distended, no bruit, non tender Musculoskeletal Inspection: no joint swelling Neurologic Gait: normal gait Skin Inspection and Palpation: warm and dry Nails: no clubbing Labs: @LABRESULTS@ Lab Results Component Value Date TSH 0.03 (L) 07/09/2023 EKG: No results found for this or any previous visit (from the past 4464 hour(s)). Echo: Stress test: Coronary angiogram: @CATH@ Diagnostic Imaging: No images are attached to the encounter. Assessment and Plan: - s/p PPM for bradycardia - NSVT - Paroxysmal non sustained AT - CAD - CKD stage 3-4 Pt feels much better and I have Advised her to focus on weight loss. she is much more active now and her backache limits her activity and I suggested to her to focus on nonweightbearing exercise. we will continue to monitor for atrial fibrillation via the device checks. Irvni Posada MD Cardiac Electrophysiology [facility] OFFICE VISIT Observed: 10/26/2023 11:45 AM Status: COMPLETED Source: [facility] [id number] Vero Sadler 10/1949 F Date Provider Department Center 10/26/2023 241-IRVIN POSADA CARD [facility] Family History Problem Relation Age of Onset Other Mother Coronary artery disease Mother Other Mother Other Mother Other Father Hypertension Father Hyperlipidemia Father Other Daughter Family Status - Relation Status Age at Mother Father Daughter Level of Service:85027 SD OFFICE/OUTPATIENT ESTABLISHED LOW MDM 20 MIN ALLERGIES DATE TYPE / CODE NAME / CODE REACTION SEVERITY SOURCE 07/05/2024 Drug Allergy/416 338945(SNOM ED CT) Penicillins/O72494 0476(RXNORM) Unknown Reaction Mild (Qualifier Value) [facility] 07/05/2024 Drug Allergy/416 329390(SNOM ED CT) adhesive tape/[id number](RX NORM) skin rash Unknown [facility] 11/28/2021 Drug Class/79805 1003(SNOMED CT) PENICILLINS Other Medium [facility] /[id number] 6(SNOMED CT) Adhesive Bandage [id number] [facility] ENCOUNTERS ADMIT/DISCHARGE ACCOUNT NUMBER ADMITTING ENCOUNTER CLASS LOCATION SOURCE 09/11/2024/09/12/19 [id number] Ambulatory Building:[facility] 08/25/2024/08/26/19 [id number] Ambulatory Buildin [id number] [facility] 08/22/2024 [id number] Ambulatory Building:[facility] 08/21/2024 [id number] Ambulatory Building:[facility] 08/21/2024/08/22/19 [id number] Ambulatory EU Ramez ing:EU Jadam: Exam 3 [facility] 08/09/2024/08/10/19 [id number] Ambulatory Building:[facility] 07/19/2024/07/20/19 [id number] Asaad, Imad [facility] 07/18/2024 [id number] Ambulatory Building:[facility] 07/13/2024/07/14/19 [id number] NKANSAH-AMANK RA, ROSETTA [facility]ulatory [facility]: FH89Ilx: 01 [facility] 06/26/2024/06/27/19 [id number] NKANSAH-AMANK RA, ROSETTA [facility] 06/26/2024 [id number] NKANSAH-AMANK RA, ROSETTA Ambulatory [facility] 06/20/2024/06/21/19 [id number] Ambulatory Building:[facility] 05/19/2024/05/20/19 [id number] [place]am 1 [facility] 05/09/2024/05/09/19 [id number] Ambulatory Building:[facility] 05/09/2024/05/09/19 [id number] Ambulatory Building:[facility] 05/05/2024/05/05/19 [id number] [place] [facility] 05/01/2024/05/01/19 25 [id number] [place] [facility] 03/31/2024/03/31/19 25 [id number] Ambulatory [place] : Exam 7 [facility] 02/22/2024 [id number] Ambulatory [place] [facility] 02/14/2024/02/14/20 24 [id number] Ambulatory PM [place] [facility] 02/08/2024/02/08/20 24 [id number] Ambulatory Building:[facility] 01/26/2024/01/26/20 24 [id number] Ambulatory Building:[facility] 11/23/2023/11/23/19 24 [id number] Ambulatory Buildin [id number] [facility] 11/23/2023/11/23/19 24 [id number] Ambulatory Buildin [id number] [facility] 10/26/2023/10/26/19 [id number] Ambulatory Building:[facility] PAYERS ENCOUNTER GUARANTOR PAYER SUBSCRIBER SOURCE 09/11/2024 VERO Wick KARINAB: [id number] [address] [id number]: () Primary Insurance:MEDICAREPolicy Number: [id number] Date:4952-81-04Btvn Name:Medicare VERO Wick KARINADOB: [id number] [address] [phone] [facility] 09/11/2024 Secondary Insurance:[facility]ITALPolicy Number: [id number] Date:2018-02-12 VERO Wick SULADOB: [id number] [address] [address] [facility] 08/25/2024 Primary Insurance:MEDICAREPolicy Number: [id number] Date:6445-03-24Fvzq Name:Medicare VERO Wick SULADOB: [id number] [address] [address] [facility] 08/25/2024 Secondary Insurance:GENERIC COMMERCIALPolicy Number: [id number] Date:2021-03-15 VERO Wick SULADOB: [id number] [address] [address] [facility] 08/22/2024 Primary Insurance:MEDICAREPolicy Number: [id number] Date:2097-00-66Dguu Name:Medicare VERO SADLERDOB: [id number] [address] [address] [facility] 08/22/2024 Secondary Insurance:GENERIC COMMERCIALPolicy Number: [id number] Date:2021-03-15 VERO SADLERDOB: [id number] [address] [address] [facility] 08/21/2024 Primary Insurance:MEDICAREPolicy Number: [id number] Date:6351-60-64Wphp Name:Medicare VERO SADLERDOB: [id number] [address] [address] [facility] 08/21/2024 Secondary Insurance:GENERIC COMMERCIALPolicy Number: [id number] Date:2021-03-15 VERO SADLERDOB: [id number] [address] [place] [address] [facility] 08/21/2024 VERO SADLERB: [id number] [facility] 8Tel: ~([phone] (HP) Primary Insurance:MEDICAREPolicy Number: [id number] Date:6794-03-23[address] [address]DWPVVSBUD, [place] [address]KS: [facility] 08/21/2024 Secondary Insurance:AETNAPolicy Number: [id number] Date:9415-26-57CF [address] [place] [address]QA: 859 [facility] 08/09/2024 VERO SADLERDOB: [id number] [address] [address]Izp: (HP) Primary Insurance:MEDICAREPolicy Number: [id number] Date:7411-99-90Ehdu Name:[facility]ic[facility]: [id number] [address] [phone] [facility] EPIC 08/09/2024 Secondary Insurance:[facility] LIFE [facility] OF [facility]ITALPolicy Number: [id number] Date:2018-02-12 VERO Wick [facility]: [id number] [address] [phone] [facility] EPIC 07/19/2024 Vero [address] [phone]: (HP) Primary Insurance:MedicarePolicy Number: [id number] Date:2024-06-27 Vero SadlerB: [id number] [address] [address]Nlz: (HP) [facility] 07/19/2024 Secondary Insura nce:Aetna SSIPolicy Number: [id number] Date:5677-19-42CZ [address] [place] [address]VE: [facility]: [id number] [address] [address]Nem: (HP) [facility] 07/19/2024 Tertiary Insuran ce:Self PayPolicy Number: Effective Date:2024-07-18 [facility] 07[facility]/2024 [facility]: [id number] [facility] 8Tel: ~[phone] (HP) Primary Insurance:MEDICAREPolicy Number: [id number] Date:4618-10-15Y[address] [address]XCPMMVMJM, [place] [address]CE: [facility]2024 Secondary Insurance:Miscellaneous Insurance CompanyPolicy Number: [id number] Date:2024-05-19 VERO [facility] 06/26/2024 VERO [facility]: [id number] [facility] 8Tel: ~([phone] (HP) Primary Insurance:MEDICAREPolicy Number: [id number] Date:8741-73-84KZ [address] [address]FTEYTGVPT, [place] [address]WA: [facility] 06/26/2024 Secondary Insurance:AETNAPolicy Number: [id number] Date:2024-06-26 [facility] 06/20/2024 VERO Wick [facility]: [id number] [address] [address]Tel: (HP) Primary Insurance:MEDICAREPolicy Number: [id number] Date:3660-45-46Xdfn Name:Medicare VERO Wick [facility]: [id number] [id number] [facility] 06/20/2024 Secondary Insurance:[facility] LIFE INSURANCE OF [facility]Policy Number: [id number] Date:2018-02-12 VERO Wick [facility]: [id number] [address] [phone] [facility] 05/19/2024 VERO [facility]: [id number] [facility] 8Tel: ~([phone] (HP) Primary Insurance:MEDICAREPolicy Number: [id number] Date:1371-08-10ZB [address]JRGXOHLPHVAMSI [place]LLINS [address]SA: [facility] 05/19/2024 Secondary Insurance:Miscellaneous Insurance CompanyPolicy Number: [id number] Date:2022-11-13 [facility] 05/09/2024 Primary Insurance:MEDICAREPolicy Number: [id number] Date:4719-69-64Pedb Name:Medicare VERO SADLERDOB: [id number] [address] 05/09/2024 Secondary Insurance:GENERIC COMMERCIALPolicy Number: [id number] Date:2021-03-15 VERO SADLERDOB: [id number] [address] 05/09/2024 VERO Wick SULADOB: [id number] [address] [address]Tel: (HP) Primary Insurance:MEDICAREPolicy Number: [id number] Date:8758-31-80Mqpm Name:Medicare VERO SADLERB: [id number] [address] [facility] 05/09/2024 Secondary Insurance:[facility] LIFE [facility]ANCE OF [facility]Policy Number: [id number] Date:2018-02-12 VERO SADLERB: [id number] [address] [facility] 05/05/2024 VERO SADLERDOB: [id number] [facility] 8Tel: ~([phone] (HP) Primary Insurance:MEDICAREPolicy Number: [id number] Date:5801-65-33TV [address] [address]MXDAQPQJS, [place] [address]AE: [facility] 05/05/2024 Secondary Insurance:Miscellaneous Insurance CompanyPolicy Number: [id number] Date:2022-11-13 [facility] 05/01/2024 Vero Wick Pompano BeachDOB: [id number] [address] [address] Primary Insurance:MedicarePolicy Number: Effective Date:9907-12-28Fzdl Name:MEDPO [address]53[place] [address]TB: Vero Wick [facility]: [id number] [address] [address] [place] [address] 05/01/2024 Secondary Insura nce:Aetna SupplementalPolicy Number: Effective Date:4509-24-25Nfjj Name:COMP [address] [place] [address]WQ: Vero Wick [facility]B: [id number] [address] 03/31/2024 [facility] E [facility] 8Tel: ~([phone] (HP) Primary Insurance:MEDICAREPolicy Number: [id number] Date:0724-01-02OR [id number] [place] [address]TG: [facility] 03/31/2024 Secondary Insurance:AETNAPolicy Number: [id number] Date:5526-27-94JY [address] [place] [address]GR: 859 [facility] 02/14/2024 Vero Wick [facility]: [id number] [address] [address] Primary Insurance:MedicarePolicy Number: Effective Date:5190-91-04Agqz Name:MEDPO [address]502[place]zkt[place] [address]ZO: Vero Wick [facility]: [id number] [address] [phone] [facility] 02/14/2024 Secondary Insura nce:Aetna SupplementalPolicy Number: Effective Date:0360-88-75Luba Name:COMP [address] [place] [address]TC: Vero SadlerDOB: [id number] [address] 02/08/2024 Primary Insurance:MEDICAREPolicy Number: [id number] Date:3060-18-44Vzpl Name:Medicare VERO SADLERDOB: [id number] [address] 02/08/2024 Secondary Insurance:GENERIC COMMERCIALPolicy Number: [id number] Date:2021-03-15 VERO Wick SULADOB: [id number] [address], [address] 01/26/2024 Primary Insurance:MEDICAREPolicy Number: [id number] Date:2176-19-02Wfsw Name:Medicare VERO SADLERDOB: [id number] [address], [address] 01/26/2024 Secondary Insurance:GENERIC COMMERCIALPolicy Number: [id number] Date:2021-03-15 VERO SADLERDOB: [id number] [address], [address] 11/23/2023 Primary Insurance:MEDICAREPolicy Number: [id number] Date:7632-94-92Sydu Name:Medicare VERO SADLERDOB: [id number] [address] [place] [address] [facility] 11/23/2023 Secondary Insurance:GENERIC COMMERCIALPolicy Number: [id number] Date:2021-03-15 VERO SADLERDOB: [id number] [address] [place] [address] [facility] 11/23/2023 Primary Insurance:MEDICAREPolicy Number: [id number] Date:3781-97-91Zhyv Name:Medicare VERO SADLERDOB: [id number] [address] [address] [facility] 11/23/2023 Secondary Insurance:GENERIC COMMERCIALPolicy Number: [id number] Date:2021-03-15 VERO SADLERDOB: [id number] [address] [address] [facility] 10/26/2023 Primary Insurance:MEDICAREPolicy Number: [id number] Date:2868-80-21Bbou Name:Medicare VERO SADLERDOB: [id number] [address] [address] [facility] 10/26/2023 Secondary Insurance:GENERIC COMMERCIALPolicy Number: [id number] Date:2021-03-15 VERO SADLERDOB: [id number] [address] [address] [facility]
== END 2024-09-19 13:52 | disposition home or self-care (01) ==
LOC: WC 13:52
PROVIDERS: PCP Family Medicine; Visit Provider Podiatrist Foot & Ankle Surgery
DX: I87.332 Chronic venous hypertension (idiopathic) with ulcer and inflammation of left lower extremity (principal); L97.825 Non-pressure chronic ulcer of other part of left lower leg with muscle involvement without evidence of necrosis
CPT/HCPCS: G0463

== ENCOUNTER 2024-09-25 13:33 | Outpatient (OUT) | payer MEDICARE, SELFPAY ==
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
== END 2024-09-25 13:34 | disposition home or self-care (01) ==
LOC: PM 13:33
PROVIDERS: PCP Family Medicine; Visit Provider Anesthesiology
DX: M48.062 Spinal stenosis, lumbar region with neurogenic claudication (principal)
CPT/HCPCS: G0463

== ENCOUNTER 2024-09-27 13:00 | Outpatient (OUT) | payer MEDICARE, SELFPAY ==
--- OUTSIDE RECORDS SUMMARY | 2024-09-04 05:46 | XMS_ITS ---
Author Organization [facility] in [place] Address [address] [place] [address] Care Team Providers Care Family Advocate Name Role Phone Dontrell Arvizu Primary Care Provider Reason For Referral Diagnosis 1 Open wound of leg, l eft, subsequent encounter (S81.802D) Referral Organization [facility] Referring Provider First Name Dontrell Referring Provider Last Name Nolberto Ref[facility] denis Referred Provider Isael Mart Referred Provider Specialty Wound Care Referral Priority Routine REASON FOR VISIT refer to wound Encounters Encounter Location Date Provider Diagnosis [facility] [address] [place] [address] 09/04/2024 Dontrell Arvizu Open wound of leg, left, subsequent encounter S81.802D Assessments Encounter Date Diagnosis (ICD Code) Assessment Notes Treatment Notes Treatment Clinical Notes Section Notes 09/04/2024 Open wound of leg, left, subsequent encounter (ICD-10 - S81.802D) Plan Of Treatment Referrals Referral Date Details 09/04/2024 09/04/2024Isael Next Appt Details Provider Name:Beatriz Campos , 01/23/2025 09:30:00 AM, [address] [place], [address], Progress Notes * Vero COLLINS MDOB:[birth year] (74 yo F)Acc No.[id number]:09/04/2024 Patient: Mikki XAVIERMUSTAPHAVero :1950 A ge:74 Y S ex:Female Address:[address] [place] [address], [place], [address] Subjective: * Chief Complaints: * R efer to wound * Medical History: * Surgical History: * Hospitalization/Major Diagno stic Procedure: * Medications: Objective: * Vitals: * Physical Examination: Assessment: * Assessment: 1. O pen wound of leg, left, subsequent encounter - S81.282M (Primary) Plan: * Treatment: * Procedure Codes: * true * Date: Generated for Katalina gardiner/Jaycob/Cinthiasmitting on: 0 09/27/2024 01:02 PM EDT Consultation Request Notes Referral Date Referring Provider Referred Provider Not es 09/04/2024 Dontrell Arvizu Peter
--- OUTSIDE RECORDS SUMMARY | 2024-09-04 06:13 | XMS_ITS ---
Author Organization [facility] in [place] Address [address] [place] [address] Care Team Providers Care Retail Reset Merchandiser Name Role Phone Dontrell Arvizu Primary Care Provider [phone] REASON FOR VISIT cefdinir too much money Medications Medication SIG (Take, Route, Fr equency, Duration) Notes Start Date End Date Status Cephalexin 500 MG 2 tabs Orally bid for 10 days Active Encounters Encounter Location Date Provider Diagnosis [facility] [address] [place] [address] 09/04/2024 Dontrell Arvizu Plan Of Treatment Medication Medication Name Sig Start Date Stop Date Notes Cephalexin 500 MG 2 tabs Orally bid for 10 days 09/04/2024 Next Appt Details Provider Name:Beatriz Campos , 01/23/2025 09:30:00 AM, [address] [place], [address], Progress Notes * Vero COLLINS MDOB:[birth year] (74 yo F)Acc No.[id number]:09/04/2024 Patient: Mikki RANDALL Vero Shamika :1950 A ge:74 Y S ex:Female Address:[address] [place] [address], [place], [address] * Refills Start Cephalexin Tablet, 500 MG, Orally, 40 Tablet, 2 tabs, bid, 10 days * true * Date: Generated for Printi ng/Faxing/eTransmitting on: 0 09/27/2024 01:03 PM EDT
--- OUTSIDE RECORDS SUMMARY | 2024-09-22 20:18 | XMS_ITS | Continuity of Care Document ---
Author Organization [facility] Address [address] [place] [address] Phone Care Team Providers Care Plasterer Helper Name Role Phone Jeremiah Arvizu MD Primary Care Provider [phone] Brandyn Schaffer Attending Provider Kal Molina MD Attending Provider Kal Molina MD Other Provider Care Teams Patient Care Team Team Status: Active Member Role Status Gabo Arvizu MD Primary Care Provider Active Visit Care Team Team Status: Inactive Member Role Status Gabo Arvizu MD Primary Care Provider Active Start: June 27, 2024 End: June 27, 2024 Lizette Schaffer MD Attending Provider Active Start : June 27, 2024 End: June 27, 2024 Visit Care Team Team Status: Inactive Member Role Status Gabo Arvizu MD Primary Care Provider Active Start: July 19, 2024 End: July 19, 2024 Kal Molina MD Attending Provider Active Start: July 19, 2024 End: July 19, 2024 Visit Care Team Team Status: Active Member Role Status Gabo Arvizu MD Primary Care Provider Active Start: July 19, 2024 Kal Molina MD Attending Provider Active Start: July 19, 2024 Kal Molina MD Other Provider Active Start: July 19, 2024 Patient Care Team Team Status: Inactive Member Role Status Gabo Arvizu MD Primary Care Provider Active Start: September 22, 2024 End: September 22, 2024 Lizette Schaffer MD Attending Provider Active Start : September 22, 2024 End: September 22, 2024 Chief Complaint and Reason for Visit Chief Complaint Admit Date RENAL 4 MONTH F/U June 27, 2024 10: 58am rectal bleeding July 19, 2024 11:10a m rectal bleeding July 19, 2024 1:19pm E83.42 N18.9 N18.4 I12.9 September 22, 2024 12:11pm Reason for Visit Admit Date Anemia of [...] 2024 10: 58am Secondary hyperparathyroidism June 10:58am Allergies, Adverse Reactions, Alerts Allergen Type Severity Reaction Last Updated Verified Status Comments adhesive tape Allergy Unknown skin rash July 05, 2024 8:04am Yes Active Penicillins Adverse Reaction Mild Unknown Reaction July 05, 2024 8:04am Yes Active yeast infection Social History Smoking Status Status Start Date End Date Date of Observa tion Ex-smoker (finding) July 19, 2024 11:26am Observation Status Observation Response Date of Response Legal Sex Female (finding) Sex Assigned At Female February 191850 Family History Relationship Condition Age at Onset Recorded Date/T des father Malignant neoplasm of colon Unknown Hypertension Unknown mother Malignant neoplasm of rectum Unknown Heart disease Unknown Abscess of intestine due to Crohn's disease Unknown Presence of cardiac pacemaker Unknown Ulcerative colitis Unknown daughter Malignant neoplasm of pancreas Unknown Problems Active Problems Medical Problem Onset Date Status Secondary hyperparathyroidism Unknown Ac tive CKD (chronic kidney disease) stage 4, GFR 15-29 ml/min Unknown Active Hypertensive chronic kidney disease with stage 1 through stage 4 chronic kidney disease, or unspecified chronic kidney disease Unknown Active Hyperlipidemia Unknown Active Hyperuricemia Unknown Active Cardiac pacemaker Unknown Active Anemia of renal disease Unknown Active Hyperkalemia Unknown Active Hypomagnesemia Unknown Active Medications Medication Status Dose Units Route Directions Qty Days St art Date Stop Date End Date Instructions Adherence Peg 3350-Electr olytes (Golytely) 236-22.74-6 .74 -5.86 gram recon soln Discont inued 240 ML PO Q10M 4000 1 June 28, 2024 12:00a m July 19, 2024 11:28 am follow instructions given at office Peg 3350-Electr olytes (Golytely) 236-22.74-6 .74 -5.86 gram recon soln Active 240 ML PO Q10M 4000 July 24, 2024 12:00a m until fecal effluent is clear Unknown Liothyronin e 25 mcg tablet Active 37.5 MCG [facility] 2023 12:00a m Unknown Lovastatin 20 mg tablet Active 20 MG PO Daily [facility] r 2023 12:00a m Unknown Levothyroxi ne 100 mcg capsule Discont inued 100 MCG PO Daily [facility] r 2023 12:00a m June 27, 2024 11:17 am Hydralazine 100 mg tablet Active 100 MG PO Three times daily [facility] r 2023 12:00a m Unknown Aspirin (Adult Low Dose Aspirin) 81 mg tablet,tatyana yed release (DR/EC) Active 81 MG PO Daily [facility] r 2023 12:00a m Unknown Carvedilol 25 mg tablet Active 12.5 MG PO Twice daily [facility] r 2023 12:00a m Unknown Hyoscyamine Sulfate 0.125 mg tablet Discont inued 0.125 MG PO Four times daily [facility] r 2023 12:00a m [facility] 2023 12:04 pm Pantoprazol e 40 mg tablet,tatyana yed release (DR/EC) Discont inued 40 MG PO Daily [facility] r 2023 12:00a m June 27, 2024 11:19 am Clotrimazol e-Betametha sone 1-0.05 % cream Active 1 APPLIC TOPICA L Daily as needed for rash [facility] 2023 12:00a m Unknown Bumetanide 1 mg tablet Active 1 MG PO Daily [facility] r 2023 12:00a m Unknown Albuterol Sulfate 90 mcg/actuati on HFA aerosol inhaler Active 2 PUFF INHALA TION Four times daily as needed for shortness of breath or wheezing [facility] r 24th, 2024 12:00a m Unknown Albuterol Sulfate 2.5 mg /3 mL (0.083 %) solution for nebulizatio n Active 2.5 MG INHALA TION EVERY 4-6 HOURS as needed for shortness of breath or wheezing [facility] r 2023 12:00a m Unknown Calcium Carbonate-V itamin D3 600 mg-10 mcg (400 unit) tablet Discont inued 2 TAB PO Every morning [facility] 2023 12:00a m June 27, 2024 11:58 am Lisinopril 10 mg tablet Active 10 MG PO Daily [facility] 2023 12:00a m Unknown Tramadol 50 mg tablet Discont inued 50 MG PO Twice daily as needed [facility] r 2023 12:00a m June 27, 2024 11:19 am Sod Picosulf-Ma g Ox-Citric Ac (Clenpiq) 10 mg-3.5 gram- 12 gram/160 mL solution Discont inued ML PO Twice daily [facility] 2023 12:00a m Dece saud 2023 12:05 pm FreeTextSiml at 3pm, 160ml at 9pm the day prior to colonoscopy Orally BID; Note: Source Status: Start; Refills: 0; Qty: 1 Box; Provider: Musa May Pantoprazol e 40 mg tablet,tatyana yed release (/EC) Active 40 MG PO Twice daily June 27, 2024 11:17a m Unknown Sodium Polystyrene Sulfonate powder Discont inued 15 GM PO 3 Times a week Dece er 2023 1:00am June 27, 2024 11:57 am Levothyroxi ne 88 mcg tablet Active 88 MCG PO Once June 27, 2024 12:00a m Unknown Sodium Polystyrene Sulfonate powder Discont inued 15 GM PO 3 Times a week 150 June 27, 2024 11:56a m June 27, 2024 1:04p m Calcium Carbonate-V itamin D3 600 mg-10 mcg (400 unit) tablet Discont inued 2 TAB PO Every morning 180 June 27, 2024 11:57a m June 27, 2024 12:27 pm Calcium Carbonate-V itamin D3 600 mg-10 mcg (400 unit) tablet Active 2 TAB PO Every morning 180 June 27, 2024 12:27p m Unknown Magnesium Oxide 400 mg magnesium tablet Active 400 MG PO Daily 90 June 27, 2024 12:00a m Unknown Sodium Polystyrene Sulfonate powder Active 15 GM PO 3 Times a week 150 June 27, 2024 1:04pm Unknown Procedures Procedure Date Performed Status DH Colonoscopy Diagnostic (Not Applicable) July 192024 11:50am completed Urine Culture September 22, 2024 active Relevant Diagnostic Tests and/or Laboratory Data Laboratory Results Test Collection Date/Time Result Date/Time Result Interpretation Reference Range Result Comment Performing Site Correcte d White Blood Count September 22, 2024 12:19pm September 22, 2024 1:06pm 6.6 10*3/uL 3.8-11.6 [facility] [id number] [address] [place] [address] Red Blood Count September 22, 2024 12:19pm September 22, 2024 1:06pm 4.26 10*6/uL 3.60-5.00 [facility] [id number] [address] [place] [address] Hemoglob in September 22, 2024 12:19pm September 22, 2024 1:06pm 12.3 g/dL 11.8-15.4 [facility] [id number] [address] [place] [address] Hematocr it September 22, 2024 12:19pm September 22, 2024 1:06pm 37.9 % 34.0-46.4 [facility] [id number] [address] [place] [address] Mean Corpuscu lar Volume September 22, 2024 12:19pm September 22, 2024 1:06pm 89.0 fL 80-100 [facility] [id number] [address] [place] [address] Mean Corpuscu lar Hemoglob in September 22, 2024 12:19pm September 22, 2024 1:06pm 28.9 pg 24.7-34.3 [facility] [id number] [address] [place] [address] Mean Corpuscu lar Hemoglob in Concent September 22, 2024 12:19pm September 22, 2024 1:06pm 32.5 g/dL 32.0-35.0 [facility] [id number] [address] [facility] [address] Red Cell Distribu tion Width September 22, 2024 12:19pm September 22, 2024 1:06pm 15.0 % 11.9-15.3 [facility] [id number] [address] [facility] [address] Platelet Count September 22, 2024 12:19pm September 22, 2024 1:06pm 212 10*3/uL 150-450 [facility] [id number] [address] [place] [address] Mean Platelet Volume September 22, 2024 12:19pm September 22, 2024 1:06pm 8.1 fL 6.3-10.7 [facility] [id number] [address] [facility] [address] Urine Color September 22, 2024 12:20pm September 22, 2024 12:51pm Yellow Yellow [facility] [id number] [address] [place] [address] Urine Appearan ce September 22, 2024 12:20pm September 22, 2024 12:51pm Cloudy Abnormal (applies to non-numeric results) Clear [facility] [id number] [address] [place] [address] Urine Specific [place] September 22, 2024 12:20pm September 22, 2024 12:51pm 1.018 1.001-1.03 0 [facility] [id number] [address] [place] [address] Urine pH September 22, 2024 12:20pm September 22, 2024 12:51pm 5.0 5.0-9.0 [facility] [id number] [address] [place] [address] Urine Leukocyt e Esterase September 22, 2024 12:20pm September 22, 2024 12:51pm 1+ Above high normal Negative [facility] [id number] [address] [place] [address] Urine Nitrite September 22, 2024 12:20pm September 22, 2024 12:51pm Negative Negative [facility] [id number] [address] [place] [address] Urine Protein September 22, 2024 12:20pm September 22, 2024 12:51pm Negative mg/dL Negative [facility] [id number] [address] [facility] [address] Urine Glucose (UA) September 22, 2024 12:20pm September 22, 2024 12:51pm Normal mg/dL Normal [facility] [id number] [address] [facility] [address] Urine Ketones September 22, 2024 12:20pm September 22, 2024 12:51pm Negative Negative [facility] [id number] [address] [facility] [address] Urine Urobilin ogen September 22, 2024 12:20pm September 22, 2024 12:51pm Normal mg/dL Normal [facility] [id number] [address] [facility] [address] Urine Bilirubi n September 22, 2024 12:20pm September 22, 2024 12:51pm Negative Negative [facility] [id number] [address] [facility] [address] Urine Occult Blood September 22, 2024 12:20pm September 22, 2024 12:51pm Negative Negative [facility] [id number] [address] [facility] [address] Urine RBC September 22, 2024 12:20pm September 22, 2024 12:57pm 1-2 [HPF] 0-4 [facility] [id number] [address] [facility] [address] Urine WBC September 22, 2024 12:20pm September 22, 2024 12:57pm 5-9 [HPF] Above high normal 0-4 [facility] [id number] [address] [facility] [address] Urine Squamous Epitheli al Cells September 22, 2024 12:20pm September 22, 2024 12:57pm 5-9 [HPF] Above high normal 0-2 [facility] [id number] [address] [facility] [address] Urine Bacteria September 22, 2024 12:20pm September 22, 2024 12:57pm 1+ [HPF] Above high normal None Seen [facility] [id number] [address] [facility] [address] Urine Hyaline Casts September 22, 2024 12:20pm September 22, 2024 12:57pm 0-8 [LPF] 0-8 [facility] [id number] [address] [facility] [address] Urine Mucus September 22, 2024 12:20pm September 22, 2024 12:57pm Rare [LPF] [facility] [id number] [address] [facility] [address] Glucose Level September 22, 2024 12:19pm September 22, 2024 3:27pm 95 mg/dL 70-100 ADA recommended reference rangeRandom Glucose Reference Range is dependent on time and content of last meal. Glucose of more than 200 mg/dL in a nonstressed , ambulatory subject supports the diagnosis of Diabetes Mellitus. [facility] [id number] [address] [facility] [address] Blood Urea Nitrogen September 22, 2024 12:19pm September 22, 2024 3:27pm 40 mg/dL Above high normal 7-25 [facility] [id number] [address] [facility] [address] Creatini ne September 22, 2024 12:19pm September 22, 2024 3:27pm 2.25 mg/dL Above high normal 0.60-1.20 [facility] [id number] [address] [facility] [address] Estimate d GFR (CKD-EPI ) September 22, 2024 12:19pm September 22, 2024 3:27pm 22.480 mL/Min [facility] [id number] [address] [facility] [address] Sodium Level September 22, 2024 12:19pm September 22, 2024 3:27pm 138 mmol/L 136-145 [facility] [id number] [address] [place] [address] Potassiu m Level September 22, 2024 12:19pm September 22, 2024 3:27pm 5.7 mmol/L Above high normal 3.5-5.1 [facility] [id number] [address] [place] [id number] Chloride Level September 22, 2024 12:19pm September 22, 2024 3:27pm 109 mmol/L Above high normal 98-107 [facility] [id number] [address] [place], [place] [address] Carbon Dioxide Level September 22, 2024 12:19pm September 22, 2024 3:27pm 24.4 mmol/L 21.0-31.0 [facility] [id number] [address] [facility] [address] Anion Gap September 22, 2024 12:19pm September 22, 2024 3:27pm 10.3 mEq/L 6.0-15.0 [facility] [id number] [address] [facility] [address] Calcium Level September 22, 2024 12:19pm September 22, 2024 3:27pm 8.9 mg/dL 8.6-10.3 [facility] [id number] [address] [facility] [address] Phosphor us Level September 22, 2024 12:19pm September 22, 2024 3:27pm 3.6 mg/dL 2.5-4.5 [facility] [id number] [address] [facility] [address] Magnesiu m Level September 22, 2024 12:19pm September 22, 2024 3:27pm 1.7 mg/dL Below low normal 1.9-2.7 [facility] [id number] [address] [facility] [address] Albumin September 22, 2024 12:19pm September 22, 2024 3:27pm 3.8 g/dL 3.5-5.7 [facility] [id number] [address] [place] [address] Uric Acid September 22, 2024 12:19pm September 22, 2024 3:27pm 7.9 mg/dL Above high normal 2.3-6.6 [facility] [id number] [address] [facility] [address] Iron Level September 22, 2024 12:19pm September 22, 2024 3:27pm 54 ug/dL 50-212 [facility] [id number] [address] [place] [address] Total Iron Binding Capacity September 22, 2024 12:19pm September 22, 2024 3:27pm 245 ug/dL Below low normal 255-450 [facility] [id number] [address] [place] [address] Iron Saturati on September 22, 2024 12:19pm September 22, 2024 3:27pm 22.0 % 20-50 [facility] [id number] [address] [facility] [address] Transfer rin September 22, 2024 12:19pm September 22, 2024 3:27pm 175 mg/dL Below low normal 203-362 [facility] [id number] [address] [facility] [address] Ferritin September 22, 2024 12:19pm September 22, 2024 3:48pm 73.7 ng/mL 11.0-306.8 [facility] [id number] [address] [facility] [address] 25-[place] xy Vitamin D Total September 22, 2024 12:19pm September 22, 2024 3:55pm 29.7 ng/mL Below low normal 30-100 VITAMIN D STATUS 25(OH)VITAM IN D RANGE (ng/mL) Deficient <20 Insufficien t 20 to <30Sufficie nt 30 to 100Referenc e: Jo MF,Jessica PENA, Primitivo quevedo LAMBERT, et al. Evaluation, treatment, and prevention of vitamin D deficiency; an Endocrine Society clinical practice guideline. JCEM. 2010; 96(7):1911- 30. [facility] [id number] [address] [place] [address] Parathyr oid Hormone (Intact) September 22, 2024 12:19pm September 22, 2024 2:32pm 68.7 pg/mL 12 [facility] [id number] [address] [place] [address] Pharmacy Creatini ne Clearanc e (Chem September 22, 2024 12:19pm September 22, 2024 3:27pm N/A [facility] [id number] [address] [place] [address] Urine Random Creatini ne September 22, 2024 12:20pm September 22, 2024 1:15pm 153.00 mg/dL No reference range established [facility] [id number] [address] [place] [address] Urine Random Total Protein September 22, 2024 12:20pm September 22, 2024 1:15pm 16 mg/dL Above high normal 0-9 [facility] [id number] [address] [facility] [address] Urine Protein/ Creatini ne Ratio September 22, 2024 12:20pm September 22, 2024 1:15pm 105 mg/g{Cre} 0-200 [facility] [id number] [address] [facility] [address] Miscella neous Patholog y Test July 19, 2024 1:33pm July 25, 2024 3:06pm See comment See report. Scanned copy available in EMR. [facility] [id number] [address] [facility] [address] Vital Signs Vital Reading Result Reference Range Collection Date/Time Height 63 [in_i] June 27 11:14am Weight 135.79 kg June 27 11:14am Body Temperature 97.6 [degF] 97.6-99.0 June 27, 2024 11:14am Heart Rate 101 /min 60-100 June 27 11:14am Respiratory rate 18 /min -June 27, 2024 11:14am Oxygen saturation by Pulse oximetry 93 % 95-100 June 27, 2024 11: 14am BP Systolic 157 mm[Hg] 100-140 June 27 11:14am BP Diastolic 77 mm[Hg] 60-100 June 27 11:14am BMI (Body Mass Index) 53.0 kg/m2 June 27, 2024 11:14am Height 64 [in_i] July 19, 2024 1 1:23am Weight 133.81 kg July 19, 2024 1 1:23am Heart Rate 67 /min 60-100 July 19, 2024 2 :20pm Respiratory rate 18 /min -July 19 2:20pm Oxygen saturation by Pulse oximetry 98 % 95-100 July 19, 2024 2:20pm BP Systolic 132 mm[Hg] 100-140 July 19, 2024 2 :20pm BP Diastolic 60 mm[Hg] 60-100 July 19, 2024 2 :20pm Advance Directives Advance Directive Response Recorded Date/ Time Advance Directives No January 06, 2024 12:45pm Insurance Providers Guarantor Vero Sadler Address [address] [facility] [address] [facility] [address] Contact Info. Home Phone: Payer Policy Id Subscriber's Name Subscriber Id Effectiv e Date Expiration Date Cameron MCNEIL/TELLY [id number] Vero Sadler [id number] Medicare [id number] [place] [id number] Encounters Encounter Location(s) Arrival/Admit Date Discharge/Depart Date Provider(s) Departed Physician/Prov ider Office Visit -[facility] June 27, 2024 10:58am June 27, 2024 12:06pm Lizette Schaffer MD Departed Surgical Day Care -[facility] July 19, 2024 11:10am July 19, 2024 2:40pm Kal Molina MD Non-patient / Non-visit -[facility] July 19, 2024 1:19pm Kal Molina MD Departed Clinical -Lab [facility] September 22, 2024 12:11pm September 22, 2024 12:12pm Lizette Schaffer MD Recent Diagnosis Onset Date Admit Date Anemia of renal disease Unknown June 272024 10:58am CKD (chronic kidney disease) stage 4, GFR 15-29 ml/min Unknown June 27, 2024 10:58am Hyperkalemia Unknown June 27, 2024 10:58am Hyperlipidemia Unknown June 27, 2024 10:58am Hypertensive chronic kidney disease with stage 1 through stage 4 chronic ki Unknown June 27, 2024 10:58am Hyperuricemia Unknown June 27, 2024 10:58am Hypomagnesemia Unknown June 27, 2024 10:58am Secondary hyperparathyroidism Unknown Ap 2024 10:58am Assessments Diagnosis Onset Date Resolution Status Admit Date [...] Secondary hyperparathyroidism acute June 27, 2024 10:58am Plan of Treatment Author Lizette Schaffer [facility] Authored June 27, 2024 12: 33pm She has a CKD due to the shreya gstanding HTN with baseline serum creatinine around 2.2 mg/dL. I discussed with her importance of good HTN control to slow the progression of CKD. I advised her to avoid NSAIDs or kpbj-xkw-meyghzs medications. She had hyperkalemia due to the CKD and lisinopril. Her serum potassium is within normal limit. Advised her to limit the potassium intake and continue Kayexalate. MBD parameters are within the goal. I have advised to continue take oral vitamin D and calcium. Blood pressure is controlled and she appears to be euvolemic. Advised her to continue current antihypertensive medications. She has anemia likely due to CKD. She has mildly elevated free light chain ratio likely due to the CKD. She has no evidence of monoclonal protein on SPEP, UPEP, serum and urine immunofixation. Will repeat the studies in 3 months. She has hyperuricemia due to the CKD but denies any gout flare. Will continue to monitor without medication. 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 Advised to take high magnesium diet. I have sent a prescription for oral magnesium. I have advised her continue to take his statins and follow-up with PCP for monitoring of LFTs and lipid profile. Future Tests Future scheduled test information is unavailable Pending Tests Test Name Ordered Date Scheduled Date Urine Culture September 22, 2024 12:20pm Serum Immunofixation September 22, 2024 12:19pm Immunoglobulin G September 22, 2024 12:19pm Immunoglobulin A September 22, 2024 12:19pm Immunoglobulin M September 22, 2024 12:19pm Serum Total Protein September 22, 2024 12:19pm Serum Total Protein September 22, 2024 12:20pm Albumin (Send Out) September 22, 2024 12:19pm Albumin (Send Out) September 22, 2024 12:20pm Pwume-6-Rmfhmhxcn September 22, 2024 12:19pm Vfcrp-5-Njppxqrpi September 22, 2024 12:20pm Mvssq-9-Trhalewmy September 22, 2024 12:19pm Wwzxg-8-Xvpfvadbg September 22, 2024 12:20pm Beta Globulins September 22, 2024 12:19pm Beta Globulins September 22, 2024 12:20pm Gamma Globulins September 22, 2024 12:19pm Gamma Globulins September 22, 2024 12:20pm Protein Electrophoresis M-Benjy September 22, 2024 12:19pm Protein Electrophoresis M-Benjy September 22, 2024 12:20pm Globulin (PEP) September 22, 2024 12:19pm Globulin (PEP) September 22, 2024 12:20pm Albumin/Globulin (PEP) September 22, 2024 12:19pm Albumin/Globulin (PEP) September 22, 2024 12:20pm Protein Electrophoresis Note September 22, 2024 12: 19pm Protein Electrophoresis Note September 22, 2024 12: 20pm Protein Electrophoresis Interpret September 22 12:19pm Free [place] Light Chains, Quant September 22, 2024 1 2:19pm Free [place] Light Chains, Quant September 22, 2024 12:19pm Free [place]/Lambda Light Chain Ratio September 22, 2 025 12:19pm Urine Immunofixation September 22, 2024 12:20pm Immunofixation, (JOSE), Urine June 27, 2024 11 :55am September 22, 2024 12:20pm Future Visits Future appointment information is unavailable Referrals to Other Providers Referral information is unavailable Future Procedures Procedure Name Ordered Date Scheduled Date Discharge Order July 19, 2024 2:01pm July 19 2:01pm Urine Culture September 22, 2024 12:20pm September 12:20pm Immunofixation,Serum June 27, 2024 11:55am Ju ly 2024 12:19pm Free K+L LT Chains, Qn, S June 27, 2024 11:55 am September 22, 2024 12:19pm Future Medications Future medication information is unavailable Patient Instructions Instruction Admit Date Hemorrhoids Colon polyps Diverticulosis Know your Meds July 19, 2024 11:10am Goals Acute Goals Author Authored Date Experience reduced anxiety * Identifies current stressors * Develops effective coping behaviors * Uses support services as appropriate [facility] July 19, 2024 2:42pm Remain free of complications [facility] July 19, 2024 2:42pm Understand preop/postop care/sensations * Verbalizes understanding of surgical procedure * Verbalizes understanding of sensations following surgery * Verbalizes understanding of post-op treatment plan [facility] July 19, 2024 2:42pm Report pain at tolerable lev el * Uses pain scale appropriately * Identify options for pain control - Analgesics - Narcotics - Non-medication measures [facility] July 19, 2024 2:42pm Absence of imbalanced fluid volume s/s [facility] July 19, 2024 2:42pm Absence of physical injury [facility] July 19, 2024 2:42pm Absence of surgical site inf ection [facility] July 19, 2024 2:42pm
--- OUTSIDE RECORDS SUMMARY | 2024-09-26 05:00 | XMS_ITS ---
Author Organization [facility] [place] Address [address] [place] [address] Care Team Providers Care Lamp Stack Developer Name Role Phone Nolberto Dontrell Primary Care Provider Donal Salmeron Unavailable [phone] Allergies Allergen (clinical drug ingredient) Drug/Non Drug Allergy documented on EMR Reaction Allergy Type Onset Date Status Plastic Tape (uncoded) hives Allergy 023 Active fluticasone Flonase Unknown Drug Allergy Activ e Penicillin Unknown Drug Allergy Active REASON FOR VISIT 1 Year F/U Medications Medication SIG (Take, Route, Frequency, Duration) Notes Start Date End Date Status Albuterol Sulfate HFA 108 (90 Base) MCG/ACT 2 puffs as needed for SOB Inhalation every 4 hrs for 30 days Active Pantoprazole Sodium 40 MG 1 tablet Orall y twice daily for 30 days Active Magnesium 400 MG 1 capsule Orally onc e daily 08/03/2024 Active Vitamin D Active Sodium Polystyrene Sulfonate - as directed Orally Active Liothyronine Sodium 25 MCG TAKE 1 AND 1/ 2 TABLETS BY MOUTH ONCE A DAY ON AN EMPTY STOMACH for 90 Active Levothyroxine Sodium 88 MCG TAKE 1 TABLE T BY MOUTH EVERY DAY IN THE MORNING ON EMPTY STOMACH FOR 90 DAYS for 90 Active hydrALAZINE HCl 100 MG 1 tablet with aries d Orally Twice a day for 90 days Active Lovastatin 20 MG TAKE 1 TABLET BY ETHEL TH EVERY DAY AT NIGHT for 90 Active Lisinopril 10 MG 1 tablet Orally Once a day Active Clotrimazole-Betamethasone 1-0.05 % APPLY SMALL AMOUNT TO AFFECTED AREA EXTERNALLY TWICE A DAY *USE SPARINGLY* for 30 days Active Carvedilol 12.5 MG 1 tablet with food Orally Twice a day for 90 days Active Calcium 600 MG 1 tablet with meals Orally Twice a day 07/29/2023 Active Azelastine HCl 137 MCG/SPRAY INSTILL 1 S PRAY IN EACH NOSTRIL TWICE DAILY FOR 30 DAYS for 90 PRN Active Aspirin 81 81 MG 1 tablet Orally Once a day Active Bumetanide 1 MG 1 tablet Orally Once a day 08/03/2024 Active Social History Tobacco Use: Social History Observation Description Date Details (start date - stop date) Former Smoker NA - NA Tobacco Control (Standard) Question Answer Notes Tobacco use: Former smoker How long has it been since y ou last smoked? Greater than 10 years Additional Findings: Tobacco non-user Ex -very heavy cigarette smoker (40+/day) Problems Problem Type SNOMED Code ICD Code Onset Dates Problem Status W/U Status Risk Notes Problem Body mass index [BMI] 45.0-49.9, adult (Z68.42) Active confirmed Vital Signs Weight 287.8 lbs 09/26/2024 Height 65 in 09/26/2024 Blood pressure systolic 123 mm Hg 09/27/19 25 Blood pressure diastolic 64 mm Hg 025 Temperature 97.0 degrees Fahrenheit 09/27/19 25 Heart Rate 77 /min 09/26/2024 Respiratory Rate 80 /min 09/26/2024 BMI 47.89 kg/m2 09/26/2024 Oximetry 94 % 09/26/2024 Encounters Encounter Location Date Provider Diagnosis Pulmonary [facility] [place] [address] [place] [address] 09/26/2024 Donal Salmeron Multiple pulmonary nodules R91.8 ; COPD (chronic obstructive pulmonary disease) J44.9 ; History of tobacco abuse Z87.891 ; Morbid obesity E66.01 and Body mass index [BMI] 45.0-49.9, adult Z68.42 Assessments Encounter Date Diagnosis (ICD Code) Assessment Notes Treatment Notes Treatment Clinical Notes Section Notes 09/26/2024 Multiple pulmonary nodules (ICD-10 - R91.8) New 2-3cm RUL nodules on LDCT 02/23/2022 compared to 02/25/2021. These have resolved on CT 08/26/2022. Follow-up LDCT 09/06/2023 noted a new 4.6 mm right upper lobe nodule. Recurrent RUL nature is unclear. She was due for LDCT August 2024, but she was never contacted to schedule the testing. With the closing of [facility] Pulmonology this week, I explained to the patient that I would be unable to F/U immediately with the patient if she were to get the LDCT done at this time. I provided her with options: -Either I or her PCP can order the LDCT and refer her to a different document control associate if something very concerning shows -Wait several months until my new practice has been established. Patient voiced that she does not want to change pulmonologists and wants to stay with me. She said she would like to wait to see me at the new office so I can order it there and F/U with it appropriately. This may be 3-4 months - patient voiced she was okay with that. Discussed concerning symptoms to prompt ordering a CT chest sooner including, but not limited to decreased appetite or unexplained weight loss, excessive night sweats, fevers, or hemoptysis. 09/26/2024 COPD (chronic obstructive pulmonary disease) (ICD-10 - J44.9) Breathing has been doing well over the past year without any exacerbations. Has not restarted Yupelri. Occasionally has some dyspnea around seasonal changes. Discussed that albuterol HFA works as well as nebulized, but it has less systemic side effects - she has a history of palpitations which could be exacerbated by nebulized albuterol. I recommended using HFA over the nebulizer. Trigger avoidance (if able). 09/26/2024 History of tobacco abuse (ICD-10 - Z87.891) 2ppd x 30 years, quit 2009. Last LDCT 09/06/2023 - RADS-2. This is her last year of eligibility; she was to have had the LDCT done August 2024, but it was not scheduled. As above, patient voiced she will wait several months to get it ordered at the new practice. 09/26/2024 Morbid obesity (ICD-10 - E66.01) Morbid obesity is inducing a restrictive pulmonary physiology. Weight loss highly recommended. 09/26/2024 Body mass index [BMI] 45.0-49.9, adult (ICD-10 - Z68.42) 09/26/2024 Other Plan Of Treatment Medication Medication Name Sig Start Date Stop Date Notes Albuterol Sulfate HFA 108 (9 0 Base) MCG/ACT 2 puffs as needed for SOB Inhalation every 4 hrs for 30 days Yupelri 175 MCG/3ML 3 mL Inhalation Once a day 08/03/2024 Albuterol Sulfate (2.5 MG/3ML) 0.083% Inhale one vial in nebulizer 4 times a day. Treatment Notes Assessment Notes Multiple pulmonary nodules New 2-3cm RUL nodules on LDCT 02/23/2022 compared to 02/25/2021. These have resolved on CT 08/26/2022. Follow-up LDCT 09/06/2023 noted a new 4.6 mm right upper lobe nodule. Recurrent RUL nature is unclear. She was due for LDCT August 2024, but she was never contacted to schedule the testing. With the closing of [facility] Pulmonology this week, I explained to the patient that I would be unable to F/U immediately with the patient if she were to get the LDCT done at this time. I provided her with options: -Either I or her PCP can order the LDCT and refer her to a different document control associate if something very concerning shows -Wait several months until my new practice has been established. Patient voiced that she does not want to change pulmonologists and wants to stay with me. She said she would like to wait to see me at the new office so I can order it there and F/U with it appropriately. This may be 3-4 months - patient voiced she was okay with that. Discussed concerning symptoms to prompt ordering a CT chest sooner including, but not limited to decreased appetite or unexplained weight loss, excessive night sweats, fevers, or hemoptysis. COPD (chronic obstructive pu lmonary disease) Breathing has been doing well over the past year without any exacerbations. Has not restarted Yupelri. Occasionally has some dyspnea around seasonal changes. Discussed that albuterol HFA works as well as nebulized, but it has less systemic side effects - she has a history of palpitations which could be exacerbated by nebulized albuterol. I recommended using HFA over the nebulizer. Trigger avoidance (if able). History of tobacco abuse 2ppd x 30 years, quit 2009. Last LDCT 09/06/2023 - RADS-2. This is her last year of eligibility; she was to have had the LDCT done August 2024, but it was not scheduled. As above, patient voiced she will wait several months to get it ordered at the new practice. Morbid obesity Morbid obesity is inducing a restrictive pulmonary physiology. Weight loss highly recommended. Next Appt Details Follow Up: 4 Months, Reason: Provider Name:Beatriz Campos , 01/23/2025 09:30:00 AM, [address] [place], [address], Procedure Notes * Category Sub-Category Detail Notes PFT Data: 07/21/2018-FEV1/FV C: 71%-FEV1: 68%-FVC: 73%-SUL12-51%: 59% -Bronchodilator response: Partial -RV: 99%-T%-DLCO: 87%-Flow-volume loop: Emphysematous -FeNO: 28 Alpha-1 Antitrypsin Screening Date: 08/15/2020 Genotype: M/M Progress Notes * Vero COLLINS MDOB:[birth year] (74 yo F)Acc No.[id number]:09/26/2024 Follow Up Patient: Vero FIELD Provider: Keren Salmeron DO :1950 A ge:74 Y S ex:Female Date:09/26/2024 Address:[address] [place], [place] [id number] Pcp:Dontrell Arvizu Check In:08:50 AM ESTCheck O ut:09:25 AM EST Subjective: * Chief Complaints: * 1 Year F/U * HPI: G eneral: Patient states she has been doing well since last visit. She denies any exacerbations. Reports rare albuterol use - occasionally uses nebulizer instead of HFA. Remains off any maintenance medication. 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 LDCT was due August 2024, but for some reason, patient was not contacted to schedule the testing.� The patient denies any decreased appetite or unexplained weight loss, excessive night sweats, fevers, or hemoptysis. MA Intake Comments:. Patient presents for a follow up for COPD. Patient denies any complaints or concerns today with her breathing. Patient reports using her Nebulizer as needed only. Patient denies tobacco use. Patient is currently under the care of [facility] Cardiology. * ROS: G eneral/Constitutional: Fever or sweats d enies. C hange of appetite d enies. C hills d enies. W eight Change d enies. H EENT: Dry mouth d enies. S ore throat d enies. O ral Ulcers d enies. P ost Nasal Drip D enies. C ongestion D enies. H oarseness�Denies. C ardiovascular: Chest pain d enies. P alpitations r esolved. R espiratory: Dyspnea r are. C ough d enies. H emoptysis d enies. W heezing d enies. G astrointestinal: Acid Reflux/GERD/Heartburn d enies. M usculoskeletal: Chronic Back Pain a dmits. S kin: Easy bruising d enies. R danielito d enies. � N eurologic: Seizures d enies. T remor d enies. H ematology: Abnormal Bleeding d enies. P sychiatric: Anxiety d enies. 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 Modified On:11/24/2022 Status:confirmed J44.9 COPD (chronic obstru ctive pulmonary disease) Modified On:05/11/2023 Status:confirmed M48.00 Spinal stenosis Modified On:05/21/2022 Status:confirmed N18.3 Chronic kidney disea se, stage 3 (moderate) Modified On:04/23/2023U Status:confirmed I27.20 Pulmonary hypertensi on Modified On:05/11/2023U Status:confirmed J44.9 Chronic obstructive pulmonary disease, unspecified COPD type Modified On:11/24/2022 Status:confirmed R91.8 Multiple pulmonary n odules Modified On:11/24/2022 Status:confirmed E66.01 Morbid obesity Modified On:11/24/2022U Status:confirmed U07.1 COVID-19 Modified On:08/01/2023W/U Status:confirmed I25.118 Atherosclerotic hear t disease of [place] coronary artery with other [...] disea se (CKD), stage III (moderate) Modified On:05/11/2023 Status:confirmed M47.817 Lumbosacral spondylo sis Modified On:08/01/2023U Status:confirmed Z68.43 Body mass index [BMI ] 50.0-59.9, adult Modified On:11/23/2023 Status:confirmed E87.5 Hyperkalemia Modified On:01/10/2024U Status:confirmed M48.062 Spinal stenosis, lum bar region with neurogenic claudication Modified On:01/12/2024 Status:confirmed N81.10 Bladder prolapse, 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, acquired Modified On:02/22/2024 Status:confirmed M79.671 Right foot pain Modified On:03/10/2024U Status:confirmed H65.90 Serous otitis media Modified On:04/17/2024U Status:confirmed E78.00 Pure hypercholestero lemia, unspecified Modified [...] CAD (coronary artery disease) Modified On:08/30/2024 Status:confirmed L97.822 Non-pressure chronic ulcer of other part of left lower leg with fat layer exposed Modified On:09/25/2024 Status:confirmed I87.332 Chronic venous hyper tension with ulcer and inflammation involving left side Modified On:09/25/2024 Status:confirmed Z68.42 Body mass index [BMI ] 45.0-49.9, adult Modified On:09/26/2024 Status:confirmed * Medical History: * Surgical History: [...] long has it been since you last smoked?�Greater than 10 years A dditional Findings: Tobacco non-user E x-very heavy cigarette smoker (40+/day) Electronic Cigarette use C urrent user N o LM: Additional Tobacco Questions N umber of Years Pt Smoked: 3 0 N umber of Packs per Day: 2 When did you stop smokin. 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 D rugs/Alcohol: D rugs H ave you used drugs other than those for medical reasons in the past 12 months? N o D oes the Patient have a History of Drug Abuse in the Past? N o Caffeine I ntake: O ccasionally Coffee Do you drink alcohol?: Yes, Socially. Do you smoke marijuana?: Denies. * Medications: T akingAlbuterol Sulfate (2.5 MG/3ML) [...] *USE SPARINGLY* hydrALAZINE HCl 100 MG Tablet 1 tablet with food Orally Twice a day Levothyroxine Sodium 88 MCG Tablet TAKE 1 TABLET BY MOUTH EVERY DAY IN THE MORNING ON EMPTY STOMACH FOR 90 DAYS Liothyronine Sodium 25 MCG Tablet TAKE 1 [...] SPARINGLY* Taking hydrALAZINE HCl 100 MG Tablet 1 tablet with food Orally Twice a day Taking Levothyroxine Sodium 88 MCG Tablet TAKE 1 TABLET BY MOUTH EVERY DAY IN THE MORNING ON EMPTY STOMACH FOR 90 DAYS Taking Liothyronine Sodium 25 MCG Tablet TAKE [...] Solution 3 mL Inhalation Once a day DiscontinuedCefdinir 300 MG Capsule 2 capsule Orally once a day Cefdinir 300 MG Capsule 2 capsule Orally once a day Cephalexin 500 MG Tablet 2 tabs Orally bid Doxycycline Monohydrate 100 MG Capsule 1 capsule Orally bid Doxycycline Monohydrate 100 MG Capsule 1 capsule Orally bid Medication List reviewed and reconciled with the patientDiscontinued Cefdinir 300 MG Capsule 2 capsule Orally once a day Discontinued Cefdinir 300 MG Capsule 2 capsule Orally once a day Discontinued Cephalexin 500 MG Tablet 2 tabs Orally bid Discontinued Doxycycline Monohydrate 100 MG Capsule 1 capsule Orally bid Discontinued Doxycycline Monohydrate 100 MG Capsule 1 capsule Orally bid Medication List reviewed and reconciled with the patient * Allergies: P lastic Tape: hives - Side Effects - Criticality Low - Onset Date 3Penicillin: AllergyFlonase: Allergyno[Allergies Verified] Objective: * Vitals: W t:287.8lbs, Ht: 65 in, BP:sittin/64mm Hg, Temp:Forehead:97.0F, HR:77/min, RR:80/min, BMI:47.89Index, Oxygen sat %:Room Air:94%, Ht-cm: 165.1 cm, Wt-k.55 kg. * Examination: E xam: GENERAL APPEARANCE: I n no respiratory distress. Skin N ormal. Mouth P ink and moist. Oropharynx M allampati Class III. Macroglossia with tongue ridging. Trachea M idline. Chest N ormal. Respiratory Normal M ovements, E ffort N ormal. Auscultation B reath sounds clear to auscultation without wheezes, crackles, or rhonchi. Cardiac R egular rate and rhythm. Gastrointestinal C entral adiposity. Vascular N o edema. Musculoskeletal U ses a wheeled chair. Neurological F ocal, intact. Psychiatric A lert and oriented x3. Mentation/Cognition N ormal. Assessment: * Assessment: 1. C OPD (chronic obstructive pulmonary disease) - J44.9 (Primary) 2 . M ultiple pulmonary nodules - R91.8 3 . H istory of tobacco abuse - Z87.891 � 4 . M orbid obesity - E66.01 5 . B domingo mass index [BMI] 45.0-49.9, adult - Z68.42 Plan: * Treatment: 2. M ultiple pulmonary nodules Notes: New 2-3cm RUL nodules on LDCT 02/23/2022 compared to 02/25/2021. These have resolved on CT 08/26/2022. Follow-up LDCT 09/06/2023 noted a new 4.6 mm right upper lobe nodule. Recurrent RUL nature is unclear. She was due for LDCT August 2024, but she was never contacted to schedule the testing. With the closing of [facility] Pulmonology this week, I explained to the patient that I would be unable to F/U immediately with the patient if she were to get the LDCT done at this time. I provided her with options: -Either I or her PCP can order the LDCT and refer her to a different document control associate if something very concerning shows -Wait several months until my new practice has been established. Patient voiced that she does not want to change pulmonologists and wants to stay with me. She said she would like to wait to see me at the new office so I can order it there and F/U with it appropriately. This may be 3-4 months - patient voiced she was okay with that. Discussed concerning symptoms to prompt ordering a CT chest sooner including, but not limited to decreased appetite or unexplained weight loss, excessive night sweats, fevers, or hemoptysis. 3. H istory of tobacco abuse Notes: 2ppd x 30 years, quit 2009. Last LDCT 09/06/2023 - RADS-2. This is her last year of eligibility; she was to have had the LDCT done August 2024, but it was not scheduled. As above, patient voiced she will wait several months to get it ordered at the new practice. 4. M orbid obesity Notes: Morbid obesity is inducing a restrictive pulmonary physiology. Weight loss highly recommended. * Procedures: A lpha-1 Antitrypsin: Screening Date: 0 08/15/2020. Genotype: M /M. P FT: Data: 07/21/2018 -FEV1/FVC: 71% -FEV1: 68% -FVC: 73% -JPT38-08%: 59% -Bronchodilator response: Partial -RV: 99% -T% -DLCO: 87% -Flow-volume loop: Emphysematous -FeNO: 28. * Procedure Codes: * Preventive Medicine: COVID Vaccination: H as patient had COVID Vaccination? COVID Vaccination 1 -Lasgby6701/07/2021- Pfizer Immunization Status: P neumovacc P t Refused. I nfluenza P t Refused. Screenings/Counseling: F ALL RISK SCREENING Fall Risk Assessment: N o falls in the past year Are you afraid of falling? N o T OBACCO ACTION PLAN Patient counselled on the dangers of tobacco use and urged to quit. 0 09/26/2024 Former Educational materials on smoking cessation provided 0 09/26/2024 Former F ANÍBAL EXCLUSION Reason: P atient Reason refused/declined Type of Patient Reason: D rug declined by patient B PR ACTION PLAN Above Normal BMI Follow-up D ietary management education, guidance, and counseling * Follow Up: 4 Months * * Sign off status: Completed Visit Status: C HK (Check Out) true * Provider: Keren Salmeron DO Date: 09/26/2024 Generated for Katalina gardiner/Jaycob/Joleen on: 09/27/2024 01:03 PM EDT History and Physical Notes * HPI (History of Present Illness) Category Sub-Category Detail Notes Category Not es General Patient present s for a follow up for COPD. Patient denies any complaints or concerns today with her breathing. Patient reports using her Nebulizer as needed only. Patient denies tobacco use. Patient is currently under the care of [facility] Cardiology. Examination Category Sub-Category Detail Notes Category Not es Exam GENERAL APPEARANCE: In no respiratory dis tress Skin Normal Mouth [place] and moist Trachea Midline Chest Normal Respiratory Normal Movements, Ef fort Normal Auscultation Breath sounds clear to auscultation without wheezes, crackles, or rhonchi Cardiac Regular rate and rhy thm Gastrointestinal Central adiposity Vascular No edema Musculoskeletal Uses a wheeled chair Neurological Focal, intact Psychiatric Alert and oriented x 3 Mentation/Cognition Normal Oropharynx Mallampati Class III . Macroglossia with tongue ridging
--- OUTSIDE RECORDS SUMMARY | 2024-09-27 13:03 | XMS_ITS | Encounter Summary ---
Author Organization [facility] Address [address] [facility] [place] [address] Care Team Providers Care Clinic Lpn Name Role Phone Jeremiah Arvizu MD Primary Care Provider + Jeremiah Arvizu MD Primary Care Provider + Encounter Details Date Type Department Care Team ([facility] Contact Info) Description 06/23/2024 Orders Only [facility] [address] [facility] [address] [place] [address] Jeremiah Arvizu MD [address] [facility] [place] [address] Social History Tobacco Use Types Packs/Day Years [...] EDT Office Visit [facility] [address] [facility] [address] [place] [address] Lakshmi Viramontes MD [address] [facility] [address] [place] [address] documented as of this encounter Procedures Procedure Name Priority Date/Time Associated Diagnosis Comments SCANNED LABS Routine 06/20/2024 8:24 AM EDT documented in this encounter Results * SCANNED LABS (06/20/2024 8:24 AM EDT) us Jeremiah Arvizu MD LAB CHG PERFORMABLES Final Resu lt documented in this encounter Visit Diagnoses Not on filedocumented in this encounter Care Teams Clinic Lpn Relationship Specialty Start Date End Date Jeremiah Arvizu MD PCP - General Family Medicine 05/09/24 08/01/24 [place] [address] [place] [phone] PCP - General Family Medicine 08/02/24 documented as of this encounter
--- OUTSIDE RECORDS SUMMARY | 2024-09-27 13:03 | XMS_ITS | Encounter Summary ---
Author Organization [facility] Address [address] [place] [address] Care Team Providers Care Self Defense Instructor Name Role Phone Jeremiah Arvizu MD Primary Care Provider [phone] Encounter Details Date Type Department Care Team (Late st Contact Info) Description 08/04/2022 Community Orders [address] 1,2,3 [facility] [place], [place] [id number] Linn Álvarez PA [address] [place] [phone] Social History Tobacco Use Types Packs/Day Years [...] Description 10/24/2024 10:30 AM EDT Ancillary Procedure [facility] [address] [place] [address] 10/24/2024 11:15 AM EDT Office Visit [facility] [address] [place] [id number] Irvin Posada MD [address] [place] [id number] documented as of this encounter Visit Diagnoses Not on filedocumented in this encounter Care Teams Self Defense Instructor Relationship Specialty Start Date End Date Jeremiah Arvizu MD [address] [facility] [address] [address] PCP - General 01/26/22 documented as of this encounter
--- OUTSIDE RECORDS SUMMARY | 2024-09-27 13:03 | XMS_ITS | Clinical Summary ---
Author Organization [facility] Address [address] [place] [address] Care Team Providers Care Conference And Event Organiser Name Role Phone Jeremiah Arvizu MD Primary [...] by mouth in the morning. 03/02/2024 Active traMADol (Ultram) 50 MG tablet 08/09/2023 Active Azelastine HCl 137 MCG/SPRAY solution every 12 (twelve) hours 06/08/2024 Active cephalexin (Keflex) 500 MG capsule TAKE 1 CAPSULE BY MOUTH EVERY 12 HOURS FOR 5 DAYS 07/13/2024 Active doxycycline (Monodox) 100 MG capsule 08/08/2024 Active Active Problems Problem Noted Date Diagnosed [...] 10/02/2022 Overview (05/05/2024): SOBIA=17.7 events/hour; Pranav SaO2=76%; Gppsks=934.0 lbs; BMI=52.7 kg/m2, Home Sleep Apnea Testing on 09/25/2022 at [facility] [place] (ventricular tachycardia) 04/29/2022 Overview (05/05/2024): Added automatically from request for surgery [id number] Clinical trial exam 04/23/2022 Overview (05/05/2024): Added automatically from request for surgery [id number] A-fib 04/21/2022 Lower abdominal pain 01/30/2022 Spinal stenosis of lumbar re gion with neurogenic claudication 01/30/2022 Spondylosis of 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 or radiculopathy 01/30/2022 Essential hypertension 01/25/2020 Chest pain 07/27/2016 Dyspnea 07/27/2016 Edema 07/27/2016 Fatigue 07/27/2016 Lightheadedness 07/27/2016 Encounters Date Type Department Care Team Description 09/11/2024 1:30 PM EDT Office Visit [facility] [address] [place] [address] John Viramontes MD ETD (Eustachian tube dysfunction), right (Primary Dx); Chronic mastoiditis, right 09/11/2024 Bamboo flowsheet [facility] [address] [facility] [address] [place] [phone] John Viramontes MD 09/11/2024 Travel 08/15/2024 Clinisync Result Encounter [facility] External Department Unsolicited John Viramontes MD 08/09/2024 9:40 AM EDT Office Visit [facility] [address] [facility] [address] [place] [phone] John Viramontes MD ETD (Eustachian tube dysfunction), right (Primary Dx); CSF otorrhea; Chronic myringitis of right ear 08/09/2024 Bamboo flowsheet [facility] [address] [facility] [address] [place] [id number] John Viramontes MD 08/09/2024 Travel from Last 3 Months Social History [...] Office Visit [facility] [address] [facility] [address] [place] [address] John Viramontes MD [address] [facility] [address] [place] [address] Health Maintenance Due Date Last Done Comments CT Colonography 1950 FIT-DNA 1950 FIT 1950 FOBT 1950 Sigmoidoscopy 1950 Mammogram 1991 Pneumococcal Vaccine: 65+ Ye ars (1 of 1 - PCV) 2001 Influenza Vaccine (#1) 2024 Colonoscopy 02/09/2033 02/09/2023, 01/14, 07/06/2018 Colorectal Cancer Screening 02/09/2033 Medical Devices Implanted Type Area Asbestos Brake Lining Finisher Device Identifier Shelf Expiration Date Model / Serial / Lot Cardiac Pacemaker Cardiac Pacemaker Heart Procedures Procedure Name Priority Date/Time Associated Diagnosis Comments CT INTERNAL AUDITORY CANALS/POSTERIOR FOSSA WO IV CONTRAST 08/15/2024 2:51 PM EDT from Last 3 Months Results * CT internal auditory canals/posterior fossa wo IV contrast (08/15/2024 2:51 PM EDT) Anatomical Region Laterality Modality Head, Neck Computed Tomogra phy 08/15/2024 2:51 PM EDT Narrative 08/15/2024 2:54 PM EDT [address] [address] [address] Scan Report Signed Patient: JUSTIN COLLINS MR#: [id number] : 1950 Acct:[id number] Age/Sex: 74 / F ADM Date: 08/15/24 Loc: CT Attending Dr: John Viramontes M.D. Ordering Physician: John Viramontes M.D. Date of Service: 08/15/24 Procedure(s): CT int auditory canals w/o con Accession Number(s): [id number] cc: Jeremiah Arvizu M.D. [address] [address] Patient Name: JUSTIN COLLINS MRN: [id number] date: 1950 Sex: F Assigned Patient Location: CT Current Patient Location: CT Accession/Order Number: [id number] Exam Date: 08/15/2024 14:47 Report Date: 08/15/2024 [...] Gutierrez M.D. 08/15/2024 2:51 PM Dictation Location: [place] [address] Electronically authenticated by: [id number] Y Date: 08/15/2024 14:51 Dictated By: Victor Manuel Gutierrez M.D. Signed By: 08/15/24 1454 DD/ 1451 TD/TT: Logging Tractor Operator: Procedure Note Radiology, Radiologist, MD - 08/15/2024 [place] [address] CT Scan Report Signed Patient: JUSTIN COLLINS MMR#: [id number] : 1950cct:[id number] Age/Sex: 74 / FADM Date: 08/15/24 Loc: CT Attending Dr: John Viramontes M.D. Ordering Physician: John Viramontes M.D. Date of Service: 08/15/24 Procedure(s): CT int auditory canals w/o con Accession Number(s): [id number] cc: Jeremiah Arvizu M.D. The [place] [address] Patient Name: JUSTIN COLLINS MRN: [id number] date: 1950 Sex: F Assigned Patient Location: CT Current Patient Location: CT Accession/Order Number: [id number] Exam Date: 08/15/2024 14:47 Report Date: 08/15/2024 [...] Gutierrez M.D. 08/15/2024 2:51 PM Dictation Location: [place] [address] Electronically authenticated by: [id number] Y Date: 4:51 Dictated By: Victor Manuel Gutierrez M.D. Signed By:08/15/24 1454 DD/ 1451 TD/TT: Logging Tractor Operator: John Viramontes MD IMG CT PROCEDURES Final Resul t from Last [address] [facility] INSURANCE OF [facility] Care Teams Conference And Event Organiser Relationship Specialty Start Date End Date Jeremiah Arvizu MD [address] [place] [address] PCP - General Family Medicine 08/02/24
--- OUTSIDE RECORDS SUMMARY | 2024-09-27 13:03 | XMS_ITS | Clinical Summary ---
Author Organization [facility] Address [address] [place] [address] Phone Care Team Providers Care Stapler Hand Name Role Phone Unavailable Primary Care Provider [...]
--- OUTSIDE RECORDS SUMMARY | 2024-09-27 13:03 | XMS_ITS | Encounter Summary ---
Author Organization [facility] Address [address] [place] [address] Care Team Providers Care Aniline Press Worker Name Role Phone Jeremiah Arvizu MD Primary Care Provider [phone] Encounter Details Date Type Department Care Team (Late st Contact Info) Description 08/04/2022 Community Orders [address] 1,2,3 [facility] [place] [address] Jose Angel Catherine MD [address] [place] [address] Social History Tobacco Use Types Packs/Day Years [...] Description 10/24/2024 10:30 AM EDT Ancillary Procedure [facility] [address] [place] [address] 10/24/2024 11:15 AM EDT Office Visit [facility] [address] [place] [phone] Irvin Posada MD [address] [place] [phone] documented as of this encounter Visit Diagnoses Not on filedocumented in this encounter Care Teams Aniline Press Worker Relationship Specialty Start Date End Date Jeremiah Arvizu MD [address] [facility] [address] [address] PCP - General 01/26/22 documented as of this encounter
--- OUTSIDE RECORDS SUMMARY | 2024-09-27 13:03 | XMS_ITS | Encounter Summary ---
Author Organization [facility] Address [address] [place] [address] Care Team Providers Care Culinary Art Teacher Name Role Phone Jeremiah Arvizu MD Primary Care Provider +-[phone] Jeremiah Arvizu MD Primary Care Provider +-[phone] Encounter Details Date Type Department Care Team (Late st Contact Info) Description 05/05/2024 Orders Only [facility] [address] [facility] [address] [place] [address] Hector Ellison MD [address] [place] [address] Social History Tobacco Use Types [...] ENT [address] [facility] [address] [place] [address] Lakshmi Viramontes MD [address] [facility] [address] [place] [address] documented as of this encounter Procedures Procedure Name Priority Date/Time Associated Diagnosis Comments AUDIOMETRY WITH TYMPANOMETRY Routine 05/04/2024 2:06 PM EST documented in this encounter Results * Audiometry with tympanometry (05/04/2024 2:06 PM EST) us Hector Ellison MD AUDIOLOGY SERVICES ORDER HALEY Final Result documented in this encounter Visit Diagnoses Not on filedocumented in this encounter Care Teams Culinary Art Teacher Relationship Specialty Start Date End Date Jeremiah Arvizu MD PCP - General Family Medicine 05/09/24 08/01/24 Jeremiah Arvizu MD [address] [place] [address] PCP - General Family Medicine 08/02/24 documented as of this encounter
--- OUTSIDE RECORDS SUMMARY | 2024-09-27 13:03 | XMS_ITS | Clinical Summary ---
Author Organization [facility] Address [address] [place] [address] Care Team Providers Care Insurance Associate Name Role Phone Jeremiah Arvizu MD Primary Care Provider [phone] Allergies Active Allergy Reactions Criticality Noted Date [...] 23 Overview (10/02/2022): SOBIA=17.7 events/hour; Pranav SaO2=76%; Nbhxge=151.0 lbs; BMI=52.7 kg/m2, Home Sleep Apnea Testing on 09/25/2022 at [facility] [place] (ventricular tachycardia) 04/29/2022 Overview (04/29/2022): Added automatically from request for surgery [id number] Clinical trial exam 04/23/2022 Overview (04/23/2022): Added automatically from request for surgery [id number] A-fib 04/21/2022 Spinal stenosis of lumbar re gion with neurogenic claudication 01/30/2022 Lower abdominal pain 01/30/2022 Spondylosis of 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 or radiculopathy 01/30/2022 Essential hypertension 01/25/2020 Chest pain 07/27/2016 Dyspnea 07/27/2016 Edema 07/27/2016 Fatigue 07/27/2016 Lightheadedness 07/27/2016 Encounters Date Type Department Care Team Description 08/25/2024 10:36 AM EDT - 08/25/2024 11:59 PM EDT Hospital Encounter [facility] [address] [place] [phone] Migraine, unspecified, not intractable, without status migrainosus Discharge Disposition: Home or Self Care () 08/14/2024 3:30 PM EDT Ancillary Procedure [facility] [address] [place] [address] Adjustment and management of cardiac pacemaker 08/14/2024 12:00 PM EDT Ancillary Procedure [facility] [address] [place] [address] Adjustment and management of cardiac pacemaker 08/11/2024 Orders Only [facility] [address] [place] [phone] Tian Hernández MD 08/11/2024 Orders Only [facility] [address] [place] [address] Irvin Posada MD from Last 3 Months [...] Description 10/24/2024 10:30 AM EDT Ancillary Procedure [facility] [address] [place] [phone] 10/24/2024 11:15 AM EDT Office Visit [facility] [address] [place] [address] Ivrin Posada MD [address] [place] [address] Health Maintenance Due Date Last Done Comments [...] this topic Medical Devices Implanted Type Area Wire Bender Device Identifier Shelf Expiration Date Model / Serial / Lot Nito Bland S 60, - [id number] - [id number] Implanted:Qty : 1 on 01/12/2023 by Constantino Bullock MD at [facility] Lead [employer] [id number] 12/12/2024 [id number] / [id number] 75 / Lead,Nito,Kaykay 53, - [id number] - [id number] Implanted:Qty : 1 on 01/12/2023 by Constantino Bullokc MD at [facility] Lead [employer] [id number] 12/12/2024 [id number] / [id number] 64 / Pacer Vnicent [place],Dr [place] - [id number] - [id number] Implanted:Qty : 1 on 01/12/2023 by Constantino Bullock MD at [facility] Pacemaker Bi[employer] [id number] 06/12/2024 [id number] / [id number] 87 / Superion Ids - 10mm Implanted:Qty : 1 on 11/30/2022 by Jose Angel Mensah MD at [facility] N/A: Spine Lumbar [employer] [id number] 08/24/2026 101-9810 / / [id number] Superion Ids - 12mm Implanted:Qty : 1 on 11/30/2022 by Jose Angel Mensah MD at [facility] N/A: Spine Lumbar [employer] [id number] 05/27/2027 101-9812 / / [id number] Procedures Procedure Name Priority Date/Time Associated Diagnosis [...] flow voids in large cerebral vessels on K6iorwxpuo imaging. Diffusion weighted images show no evidence [...] Irvin Posada MD CV IMPLANTABLE CARDIAC DEVICE TN OCEDURES Final Result CPACS * Cardiac device [...] and Crohn's disease in her mother. Sedation: [facility] Attending Physician: Dr. Dario Calderon Boat Rental Clerk: Rachel Prado, Fellow Procedure Details Informed consent [...] for the entire procedure. us Natalia Kuhn APPLICATION DEVELOPMENT INTERN ENDOSCOPY PROCEDURE O RDERABLES Final Result from Last 3 Months or Most Recently Relevant to Health Maintenance Insurance [employer] Care Teams Insurance Associate Relationship Specialty Start Date End Date Jeremiah Arvizu MD [address] [place] [id number] PCP - General 01/26/22
--- OUTSIDE RECORDS SUMMARY | 2024-09-27 13:04 | XMS_ITS | Patient Health Record ---
Author Organization [facility] [place] Address [address] [place] [address] Care Team Providers Care Batch Operator Name Role Phone Dontrell Arvizu Primary Care Provider [phone] Provider, JONATHAN Unavailable [phone] Jose Angel Mensah Unavailable [phone] Bhavana Long Unavailable [phone] Beatriz Campos Unavailable [phone] Donal Salmeron Unavailable [phone] Allergies Allergen (clinical drug ingredient) Drug/Non Drug Allergy documented on EMR Reaction Allergy Type Onset Date Status Plastic Tape (uncoded) hives Allergy 023 Active fluticasone Flonase Unknown Drug Allergy Activ e Penicillin Unknown Drug Allergy Active Results Component Value Reference Range Notes XR FOOT RT 2V Reviewed date:03/11/2024 08:36:26 PM Interpretation: Performing Lab: Notes/Report: Source Facility: [place] [id number] XRay Report Signed Patient: JUSTIN SADLER MR#: [id number] : 1950 Acct:[id number] Age/Sex: 74 / F ADM Date: 03/10/24 Loc: RAD Attending Dr: Debbie Arvizu M.D. Ordering Physician: Debbie Arvizu M.D. Date of Service: 03/10/24 Procedure(s): XR foot RT 2V Accession Number(s): [id number] cc: Debbie Arvizu M.D. [place] [address] Patient Name: JUSTIN SADLER MRN: [id number] date: 1950 Sex: F Assigned Patient Location: RAD Current Patient Location: RAD Accession/Order Number: [id number] Exam Date: 03/10/2024 14:45 Report Date: 03/10/2024 [...] Signed By: 03/10/24 1522 DD/ 152 TD/TT: Diamond Cleaner: The [address] [address] XRay Report Signed Patient: MARY SADLER SE MR#: [id number] : 1950 Acct:[id number] Age/Sex: 74 / F ADM Date: 03/10/24 Loc: RAD Attending Dr: Yong Arvizu M.D. Ordering Physician: Debbie Arvizu M.D. Date of Service: 03/10/24 Procedure(s): XR aries t RT 2V Accession Number(s): [id number] cc: Debbie Arvizu M.D. The [address] [address] Patient Name: JUSTIN SADLER MRN: [id number] date: 1950 Sex: F Assigned Patient Location: RAD Current Patient Loca tion: RAD Accession/Order Numb er: [id number] Exam Date: 14:45 Report Date: 03/10/2024 15:20 [...] Signed By: 03/10/24 1522 DD/ 1520 TD/TT: Diamond Cleaner: CT lower leg LT wo con Reviewed date:08/15/2024 04:17:45 PM Interpretation: Performing Lab: Notes/Report: Source Facility: [place] [address] [place] [address] CT Scan Report Signed Patient: JUSTIN SADLER MR#: [id number] : 1950 Acct:[id number] Age/Sex: 74 / F ADM Date: 08/15/24 Loc: CT Attending Dr: Debbie Arvizu M.D. Ordering Physician: Debbie Arvizu M.D. Date of Service: 08/15/24 Procedure(s): CT lower leg LT wo con Accession Number(s): [id number] cc: Debbie Arvizu M.D. The [place] [address] Patient Name: JUSTIN SADLER MRN: [id number] date: 1950 Sex: F Assigned Patient Location: CT Current Patient Location: CT Accession/Order Number: [id number] Exam Date: 08/15/2024 15:40 Report Date: 08/15/2024 [...] Ashford M.D. 08/15/2024 3:45 PM Dictation Location: [place] [address] Electronically authenticated by: [id number] Y Date: 08/15/2024 15:45 Dictated By: Sacha Ashford D.O. Signed By: 08/15/24 1547 DD/ 1545 TD/TT: Diamond Cleaner: [place] [address] CT Scan Report Signed Patient: MARY SADLER SE MR#: [id number] : 1950 Acct:[id number] Age/Sex: 74 / F ADM Date: 08/15/24 Loc: CT Attending Dr: Yong Arvizu M.D. Ordering Physician: Debbie Arvizu M.D. Date of Service: 08/15/24 Procedure(s): CT low er leg LT wo con Accession Number(s): [id number] cc: Debbie Arvizu M.D. The [address] [address] Patient Name: JUSTIN SADLER MRN: [id number] date: 1950 Sex: F Assigned Patient Location: CT Current Patient Loca tion: CT Accession/Order Numb er: [id number] Exam Date: 08/15/2024 15:40 Report Date: 08/15/2024 [...] Ashford M.D. 08/15/2024 3:45 PM Dictation Location: [place] [address] Electronically authenticated by: [id number] Y Date: 08/15/2024 15:45 Dictated By: Miguel Ashford D.O. Signed By: 08/15/24 1547 DD/ 1545 TD/TT: Diamond Cleaner: XR EYE FOREIGN BODY Reviewed date:01/23/2024 05:32:21 PM Interpretation: Performing Lab: Notes/Report: XR EYE FOREIGN BODY 11/23/2023 12:54 PM STAT PRE MRI ORBITS- MAGNESIUM Reviewed date:01/31/2024 01:01:36 PM Interpretation: Performing Lab: Notes/Report: The [facility] , Magnesium 1.7 1.8-2.4 mg/dL Performing Lab: see note ML - [facility] RENAL FUNCTION PANEL Reviewed date:01/31/2024 01:01:36 PM Interpretation: Performing Lab: Notes/Report: The [facility] , Sodium 144 136-145 mmol/L Potassium [...] g/dL Performing Lab: see note ML - [facility] LB URIC ACID SERUM Reviewed date:01/31/2024 01:01:36 PM Interpretation: Performing Lab: Notes/Report: The [facility] , Uric Acid 7.6 2.6-6.0 mg/dL Performing Lab: see note ML - [facility] LB CBC no Diff (Hemogram) Reviewed date:01/31/2024 01:01:36 PM Interpretation: Performing Lab: Notes/Report: The [facility] , White Blood Count 7.2 4.0-11.0 [...] Performing Lab: see note ML - The [facility] LB XR sinus min 3V Reviewed date:05/09/2024 04:10:11 PM Interpretation: Performing Lab: Notes/Report: Source Facility: [place] [address] XRay Report Signed Patient: JUSTIN SADLER MR#: [id number] : 1950 Acct:[id number] Age/Sex: 74 / F ADM Date: 05/09/24 Loc: RAD Attending Dr: Lakshmi Mathews M.D. Ordering Physician: Lakshmi Mathews M.D. Date of Service: 05/09/24 Procedure(s): XR sinus min 3V Accession Number(s): [id number] cc: Debbie Arvizu M.D.; Lakshmi Mathews M.D. [place] [address] Patient Name: JUSTIN SADLER MRN: [id number] date: 1950 Sex: F Assigned Patient Location: [facility] Current Patient Location: [facility] Accession/Order Number: [id number] Exam Date: 05/09/2024 12:47 Report Date: 05/09/2024 [...] Kelly Lao M.D.05/09/2024 12:54 PM Dictation Location: [place] ? Electronically authenticated by: [id number] Y Date: 05/09/2024 12:54 Dictated By: Kelly Lao M.D. Signed By: 05/09/24 1257 DD/ 1254 TD/TT: Diamond Cleaner: [place] [address] XRay Report Signed Patient: MARY SADLER SE MR#: [id number] : 1950 Acct:[id number] Age/Sex: 74 / F ADM Date: 05/09/24 Loc: RAD Attending Dr: Lakshmi Mathews M.D. Ordering Physician: Lakshmi Mathews M.D. Date of Service: 05/09/24 Procedure(s): XR sin us min 3V Accession Number(s): [id number] cc: Debbie Arvizu M.D. ; Lakshmi Mathews M.D. [place] [address] Patient Name: JUSTIN SADLER MRN: [id number] date: 1950 Sex: F Assigned Patient Location: RAD Current Patient Loca tion: RAD Accession/Order Numb er: [id number] Exam Date: 05/09/2024 12:47 Report Date: 05/09/2024 [...] Kelly Lao M.D.05/09/2024 12:54 PM Dictation Location: [place] [address] Electronically authenticated by: [id number] Y Date: 05/09/2024 12:54 Dictated By: Kelly Lao M.D. Signed By: 05/09/24 1257 DD/ 1254 TD/TT: Diamond Cleaner: CBC AUTO DIFF Reviewed date:06/20/2024 03:31:27 PM Interpretation: Performing Lab: Notes/Report: The [facility] , White Blood Count 7.5 4.0-11.0 [...] Performing Lab: see note ML - The [facility] LB TSH Reviewed date:06/20/2024 03:31:27 PM Interpretation: Performing Lab: Notes/Report: The [facility] , Thyroid Stimulating Hormone 0.008 0.358-3.740 uIU/mL Performing Lab: see note ML - [facility] LB VITAMIN D 25 [place] Reviewed date:06/20/2024 03:31:27 PM Interpretation: Performing Lab: Notes/Report: The [facility] , Vitamin D 37.9 <20 ng/mL Vit D deficient 20-<30 ng/mL Vit D insufficient 30-100 ng/mL Vit D sufficient >100 ng/mL Potential Toxicity Performing Lab: see note - [facility] LB PTH, Intact Reviewed date:06/21/2024 12:49:25 PM Interpretation: Performing Lab: Notes/Report: [facility] , PTH, Intact 43 15-65 pg/mL Performed at: [address] [id number] [address] Marker: Jozef Medina PhD, Phone: [employer] Performing Lab: see note - [facility] LB Immunofixation, Urine Reviewed date:06/22/2024 08:14:52 PM Interpretation: Performing Lab: Notes/Report: [facility] , Immunofixation, Urine Comment . No monoclonality detected. Performed at: [address] [id number] [address] Marker: Jozef Medina PhD, Phone: [phone] Performing Lab: see note [facility] LB JOSE, PE and FLC, Serum Reviewed date:06/22/2024 08:14:52 PM Interpretation: Performing Lab: Notes/Report: [facility] , Immunoglobulin G, Qn, Serum 8376 579-5373 mg/dL Immunoglobulin A, Qn, Serum 206 64-422 mg/dL Immunoglobulin M, Qn, Serum 98 26-217 mg/dL Protein, Total 6.4 6.0-8.5 g/dL Albumin 2.9 2.9-4.4 g/dL Hpark-5-Ncgmyybq 0.3 0.0-0.4 g/dL Ryosa-3-Pbsdvewm 1.0 0.4-1.0 g/dL Beta Globulin 1.1 0.7-1.3 [...] scan will follow via computer, mail, or ventilation equipment tender delivery. Free Carbon Cliff Lt Chains,S 51.5 3.3-19.4 mg/L Free Lambda Lt Chains,S 30.7 5.7-26.3 mg/L Carbon Cliff/Lambda Ratio,S 1.68 0.26-1.65 Performed at: [facility] [address] [id number] [address] Marker: Jozef Medina PhD, Phone: [phone] Performing Lab: see note - [facility] LB Occult Blood* Reviewed date:06/22/2024 08:14:52 PM Interpretation: Performing Lab: Notes/Report: The [facility] , Occult Blood Positive Performing Lab: see note ML - [facility] LB CRP Reviewed date:07/30/2024 09:56:53 PM Interpretation: Performing Lab: Notes/Report: The [facility] , C Reactive Protein <0.50 <=0.50 mg/dL Performing Lab: see note ML - [facility] LB LDH Reviewed date:07/30/2024 09:56:53 PM Interpretation: Performing Lab: Notes/Report: The [facility] , Lactate Dehydrogenase 147 81-234 U/L Performing Lab: see note ML - The [facility] LB CBC AUTO DIFF Reviewed date:07/30/2024 09:56:53 PM Interpretation: Performing Lab: Notes/Report: The [facility] , White Blood Count 6.2 4.0-11.0 [...] 3/uL Performing Lab: see note ML - [facility] LB MAGNESIUM Reviewed date:07/30/2024 09:56:53 PM Interpretation: Performing Lab: Notes/Report: The [facility] , Magnesium 1.9 1.8-2.4 mg/dL Performing Lab: see note ML - [facility] LB PROF 14(COMP METB) Reviewed date:07/30/2024 09:56:53 PM Interpretation: Performing Lab: Notes/Report: The [facility] , Sodium 144 136-145 mmol/L Potassium [...] Ratio 0.9 Performing Lab: see note - [facility] LB Aerobic Culture Reviewed date:08/13/2024 04:24:34 PM Interpretation: Performing Lab: Notes/Report: [facility] , Aerobic Culture See Below For Report Aerobic Culture Aerobic Culture Specimen has been received and testing has been initiated. Aerobic Culture Aerobic Culture Aerobic Culture Aerobic Culture No growth in 36 - 48 hours. Aerobic Culture Aerobic Culture Performed at: [facility] Aerobic Culture Aerobic Culture [address] [place], [place] [id number] Aerobic Culture Aerobic Culture Road Marker: Serena Medina PhD, Phone: [phone] Aerobic Culture Performing Lab: see note - [facility] LB SEE REPORT - Technology Applications Teacher Id information not found for OBX-specific television news producer legend CT int auditory canals w/o c on Reviewed date:08/15/2024 04:17:45 PM Interpretation: Performing Lab: Notes/Report: Source Facility: [place] [address] CT Scan Report Signed Patient: JUSTIN SADLER MR#: [id number] : 1950 Acct:[id number] Age/Sex: 74 / F ADM Date: 08/15/24 Loc: CT Attending Dr: Lakshmi Mathews M.D. Ordering Physician: Lakshmi Mathews M.D. Date of Service: 08/15/24 Procedure(s): CT int auditory canals w/o con Accession Number(s): [id number] cc: Debbie Arvizu M.D. [place] [id number] Patient Name: JUSTIN SADLER MRN: [id number] date: 1950 Sex: F Assigned Patient Location: CT Current Patient Location: CT Accession/Order Number: [id number] Exam Date: 08/15/2024 14:47 Report Date: 08/15/2024 [...] Gutierrez M.D. 08/15/2024 2:51 PM Dictation Location: [place] [address] Electronically authenticated by: [id number] Y Date: 08/15/2024 14:51 Dictated By: Victor Manuel Gutierrez M.D. Signed By: 08/15/24 1454 DD/ 145 TD/TT: Diamond Cleaner: [place] [address] CT Scan Report Signed Patient: MARY SADLER SE MR#: [id number] : 1950 Acct:[id number] Age/Sex: 74 / F ADM Date: 08/15/24 Loc: CT Attending Dr: Lakshmi Mathews M.D. Ordering Physician: Lakshmi Mathews M.D. Date of Service: 08/15/24 Procedure(s): CT int auditory canals w/o con Accession Number(s): [id number] cc: Debbie Arvizu M.D. [place] [id number] Patient Name: JUSTIN SADLER MRN: [id number] date: 1950 Sex: F Assigned Patient Location: CT Current Patient Loca tion: CT Accession/Order Numb er: [id number] Exam Date: 08/15/2024 14:47 Report Date: 08/15/2024 [...] auditory canal is within normal limits. The information systems auditor y canal is within normal limits. [...] auditory canal is within normal limits.. The information systems auditor y canal and mastoid air cells [...] Gutierrez M.D. 08/15/2024 2:51 PM Dictation Location: [place] [address] Electronically authenticated by: [id number] Y Date: 08/15/2024 14:51 Dictated By: Victor Manuel Gutierrez M.D. Signed By: 08/15/24 1454 DD/ 1451 TD/TT: Diamond Cleaner: Anaerobic Culture Reviewed date:09/10/2024 02:54:10 PM Interpretation: Performing Lab: Notes/Report: [facility] , Anaerobic Culture See Below For Report Anaerobic Culture Anaerobic Culture No anaerobic growth in 72 hours. Anaerobic Culture Performing Lab: see note [facility] LB Aerobic Culture Reviewed date:09/10/2024 02:54:10 PM Interpretation: Performing Lab: Notes/Report: [facility] , Aerobic Culture See Below For Report Aerobic Culture Aerobic Culture Mixed skin sonny Aerobic Culture Aerobic Culture Performed at: [facility] Aerobic Culture Aerobic Culture [address], [place] [id number] Aerobic Culture Aerobic Culture Road Marker: Serena Medina PhD, Phone: [phone] Aerobic Culture Performing Lab: see note [facility] LB SEE REPORT - Technology Applications Teacher Id information not found for OBX-specific television news producer legend Aerobic Culture Reviewed date:08/17/2024 08:13:14 PM Interpretation: Performing Lab: Notes/Report: [facility] , Aerobic Culture See Below For Report Aerobic Culture Aerobic Culture Specimen has been received and testing has been initiated. Aerobic Culture Aerobic Culture Aerobic Culture Aerobic Culture No growth in 36 - 48 hours. Aerobic Culture Aerobic Culture Performed at: [facility] Aerobic Culture Aerobic Culture [address], [place] [id number] Aerobic Culture Aerobic Culture Road Marker: Serena Medina PhD, Phone: [phone] Aerobic Culture Performing Lab: see note [facility] LB SEE REPORT - Technology Applications Teacher Id information not found for OBX-specific television news producer legend Anaerobic Culture Reviewed date:08/17/2024 08:13:14 PM Interpretation: Performing Lab: Notes/Report: [facility] , Anaerobic Culture See Below For Report Anaerobic Culture Anaerobic Culture Specimen has been received and testing has been initiated. Anaerobic Culture Anaerobic Culture Anaerobic Culture Anaerobic Culture No anaerobes recovered. Anaerobic Culture Performing Lab: see note [facility] LB ECG 12 lead Reviewed date:07/30/2024 09:56:53 PM Interpretation: Performing Lab: Notes/Report: Source Facility: [place] [address] [place] [address] Electrocardiograph Report Signed Patient: JUSTIN SADLER MR#: [id number] : 1950 Acct:[id number] Age/Sex: 74 / F ADM Date: 07/28/24 Loc: [place] 232-[address]: Debbie Arvizu M.D. Ordering Physician: Etienne Arceo Date of Service: 07/28/24 Procedure(s): ECG 12 lead Accession Number(s): [id number] cc: The [facility] Test Date: 2024-07-28 Pat Name: JUSTIN SADLER Department: Room: - Gender: Female Pressurised Container Filler: : 1950 Requested By: 1031 Order Number: [id number] Reading MD: LOVE RUBIO M.D. Measurements Intervals [place] Rate: 80 P: 92 CA: 180 QRS: 37 QRSD: 88 T: 27 QT: 402 QTc: 438 Interpretive Statements [id number] Electronic atrial pacemaker 9120 atypical ECG Compared to ECG 01/23/2024 17:12:55 No significant changes Electronically Signed On 07-29-2024 7:49:53 EDT by LOVE RUBIO M.D. Dictated By: LOVE RUBIO Signed By: 07/29/24 075 DD/ 06 TD/TT: Diamond Cleaner: [place] [address] Electrocardiograph Report Signed Patient: MARY SADLER SE MR#: [id number] : 1950 Acct:[id number] Age/Sex: 74 / F ADM Date: 07/28/24 Loc: [place] 232-[address]: Yong Arvizu M.D. Ordering Physician: Etienne Arceo Date of Service: 07/28/24 Procedure(s): ECG 12 lead Accession Number(s): [id number] cc: The [facility] Test Date: 2024-07-28 Pat Name: JUSTIN ZELAYA Department: 23 Room: - Gender: Female Pressurised Container Filler: : 1950 Requ ested By: 1031 Order Number: [id number] Reading MD: LOVE RUBIO M.D. Measurements Intervals [place] Rate: 80 P: 92 CA: 180 QRS: 37 QRSD: 88 T: 27 QT: 402 QTc: 438 Interpretive Statements [id number] Electronic atr ial pacemaker 9120 atypical ECG Compared to ECG 01/23/2024 17:12:55 No significant changes Electronically Virgie d On 07-29-2024 7:49:53 EDT by LOVE RUBIO M.D. Dictated By: LOVE RUBIO Signed By: 07/29/24 0750 DD/ 06 TD/TT: Diamond Cleaner: Troponin I High Sensitivity Reviewed date:07/30/2024 09:56:53 PM Interpretation: Performing Lab: Notes/Report: The [facility] , Troponin I High Sensitivity 12.0 4.0-51.3 pg/mL CUT-OFF POINTS HAVE BEEN ESTABLISHED BASED ON THE FOURTH UNIVERSAL DEFINITION OF MYOCARDIAL INFARCTION. THE UPPER REFERENCE LIMIT (URL) OF TROPONIN, DEFINED THE 99TH PERCENTILE OF cTnI DISTRIBUTION IN A REFERENCE POPULATION, HAS BEEN CONFIRMED THE DECISION THRESHOLD FOR NC DIAGNOSIS. 99TH PERCENTILE = 51.4 PG/ML NOTE: HIGH-SENSITIVITY TROPONIN ASSAY IS NOT INTENDED TO BE USED IN ISOLATION BUT SHOULD BE INTERPRETED IN CONJUNCTION WITH OTHER DIAGNOSTIC AND CLINICAL INFORMATION. Performing Lab: see note ML - [facility] LB PROF CHEM 8 (BAS METB) Reviewed date:07/30/2024 09:56:53 PM Interpretation: Performing Lab: Notes/Report: The [facility] , Sodium 141 136-145 mmol/L Potassium [...] Performing Lab: see note ML - The [facility] LB CBC AUTO DIFF Reviewed date:07/30/2024 09:56:53 PM Interpretation: Performing Lab: Notes/Report: The [facility] , White Blood Count 7.2 4.0-11.0 [...] Performing Lab: see note ML - The [facility] LB Reticulocyte Pct Auto Reviewed date:07/30/2024 09:56:53 PM Interpretation: Performing Lab: Notes/Report: The [facility] , Reticulocyte Pct Auto 1.22 0.60-3.10 % Performing Lab: see note ML - [facility] LB JOSE, PE and FLC, Serum Reviewed date:07/30/2024 09:56:53 PM Interpretation: Performing Lab: Notes/Report: [facility] , Immunoglobulin G, Qn, Serum 2356 495-6864 mg/dL Immunoglobulin A, Qn, Serum 179 64-422 mg/dL Immunoglobulin M, Qn, Serum 87 26-217 mg/dL Protein, Total 6.2 6.0-8.5 g/dL Albumin 3.2 2.9-4.4 g/dL Kryqu-0-Xwjdlexn 0.3 0.0-0.4 g/dL Odkvy-8-Wpumceqo 0.9 0.4-1.0 g/dL Beta Globulin 1.0 0.7-1.3 [...] scan will follow via computer, mail, or ventilation equipment tender delivery. Free Carbon Cliff Lt Chains,S 42.0 3.3-19.4 mg/L Free Lambda Lt Chains,S 26.6 5.7-26.3 mg/L [place]/Lambda Ratio,S 1.58 0.26-1.65 Performed at: - [facility] [address] [id number] Road Marker: Jozef Medina PhD, Phone: [phone] Performing Lab: see note - [facility] LB Erythrocyte Sedimentation Ra te Reviewed date:07/30/2024 09:56:53 PM Interpretation: Performing Lab: Notes/Report: [facility] , Erythrocyte Sedimentation Rate 96 <=30 mm/hr Performing Lab: see note ML - [facility] LB PROF 14(COMP METB) Reviewed date:07/30/2024 09:56:53 PM Interpretation: Performing Lab: Notes/Report: The [facility] , Sodium 139 136-145 mmol/L Potassium [...] 0.8 Performing Lab: see note ML - [facility] LB CBC AUTO DIFF Reviewed date:07/30/2024 09:56:53 PM Interpretation: Performing Lab: Notes/Report: The [facility] , White Blood Count 6.5 4.0-11.0 [...] Performing Lab: see note ML - The [facility] Prothrombin Time INR Reviewed date:06/26/2024 08:31:41 PM Interpretation: Performing Lab: Notes/Report: The [facility] , Prothrombin Time 11.4 9.0-11.6 sec INR 1.08 DESIRED INR: 2.0-3.0 CONDITIONS NOT LISTED BELOW 2.5-3.5 FOR PROSTHETIC HEART VALVE REPLACEMENT 2.5-3.5 RECURRENT THROMBOSIS Performing Lab: see note ML - The [facility] LB PTT Reviewed date:06/26/2024 08:31:41 PM Interpretation: Performing Lab: Notes/Report: The [facility] , Partial Thromboplastin Time 29.3 22.3-36.2 sec Performing Lab: see note ML - [facility] LB URINE T PROTEIN CREAT RATIO Reviewed date:06/20/2024 03:31:27 PM Interpretation: Performing Lab: Notes/Report: The [facility] , Total Protein Urine Random 30.4 <=11.9 mg/dL Creatinine Urine Random 127.97 20.00-30 0.00 mg/dL Protein Creatinine Ratio Urine 0.24 Performing Lab: see note ML - [facility] LB URIC ACID SERUM Reviewed date:06/20/2024 03:31:27 PM Interpretation: Performing Lab: Notes/Report: The [facility] , Uric Acid 8.0 2.6-6.0 mg/dL Performing Lab: see note ML - [facility] LB UA RANDOM W or MICROSCOPIC Reviewed date:06/20/2024 03:31:27 PM Interpretation: Performing Lab: Notes/Report: The [facility] , Color Urine YELLOW YELLOW Clarity Urine CLEAR CLEAR Specific Adah Urine 1.020 1.005-1.025 pH Urine 6.0 5.0-9.0 [...] NO Performing Lab: see note ML - The [facility] LB T4 Reviewed date:06/20/2024 03:31:27 PM Interpretation: Performing Lab: Notes/Report: The [facility] , T4 Thyroxine 8.10 4.80-13.90 ug/dL Performing Lab: see note ML - [facility] LB PROF 14(COMP METB) Reviewed date:06/20/2024 03:31:27 PM Interpretation: Performing Lab: Notes/Report: The [facility] , Sodium 142 136-145 mmol/L Potassium [...] 0.8 Performing Lab: see note ML - [facility] PHOSPHORUS Reviewed date:06/20/2024 03:31:27 PM Interpretation: Performing Lab: Notes/Report: [facility] , Phosphorus 3.7 2.6-4.7 mg/dL Performing Lab: see note ML - [facility] LB MAGNESIUM Reviewed date:06/20/2024 03:31:27 PM Interpretation: Performing Lab: Notes/Report: The [facility] , Magnesium 1.6 1.8-2.4 mg/dL Performing Lab: see note ML - [facility] LB LIPID PROFILE Reviewed date:06/20/2024 03:31:27 PM Interpretation: Performing Lab: Notes/Report: [facility] , Triglycerides 55 <=150 mg/dL Cholesterol [...] RISK Performing Lab: see note ML - [facility] LB IRON AND TIBC Reviewed date:06/20/2024 03:31:27 PM Interpretation: Performing Lab: Notes/Report: The [facility] , Iron 51.0 50.0-170.0 ug/dL Total Iron Binding Capacity 230.0 250.0-450.0 ug/dL Percent Iron Saturation 22.2 Performing Lab: see note - [facility] LB GLYCOHEMOGLOBIN A1C Reviewed date:06/20/2024 03:31:27 PM Interpretation: Performing Lab: Notes/Report: [facility] , Glycohemoglobin A1C 5.2 4.5-6.2 % ADA RECOMMENDED LIMIT 4.0 - 6.0 ADA THERAPEUTIC TARGET < 7.0 ACTION SUGGESTED > 7.0 Estimated Average Glucose 103 Performing Lab: see note [facility] FREE T3 Reviewed date:06/20/2024 03:31:27 PM Interpretation: Performing Lab: Notes/Report: [facility] , Free T3 2.57 2.18-3.98 pg/mL Performing Lab: see note [facility] LB FERRITIN Reviewed date:06/20/2024 03:31:27 PM Interpretation: Performing Lab: Notes/Report: [facility] , Ferritin 147.0 8.0-252.0 ng/mL Performing Lab: see note [facility] LB PTH, Intact Reviewed date:02/01/2024 11:07:43 AM Interpretation: Performing Lab: Notes/Report: [facility] , PTH, Intact 46 15-65 pg/mL Performed at: [facility] [address] [id number] Road Marker: Jozef Medina PhD, Phone: [phone] Performing Lab: see note - [facility] LB VITAMIN D 25 [place] Reviewed date:01/31/2024 01:44:22 PM Interpretation: Performing Lab: Notes/Report: [facility] , Vitamin D 37.4 <20 ng/mL Vit D deficient 20-<30 ng/mL Vit D insufficient 30-100 ng/mL Vit D sufficient >100 ng/mL Potential Toxicity Performing Lab: see note - [facility] LB URINE T PROTEIN CREAT RATIO Reviewed date:02/01/2024 08:16:19 PM Interpretation: Performing Lab: Notes/Report: [facility] , Total Protein Urine Random 22.9 <=11.9 mg/dL Creatinine Urine Random 106.23 20.00-30 0.00 mg/dL Protein Creatinine Ratio Urine 0.22 Performing Lab: see note - [facility] LB UA RANDOM W or MICROSCOPIC Reviewed date:02/01/2024 08:16:19 PM Interpretation: Performing Lab: Notes/Report: [facility] , Color Urine LT. YELLOW YELLOW Clarity Urine CLEAR CLEAR Specific Adah Urine 1.020 1.005-1.025 pH Urine 6.0 5.0-9.0 [...] #/LPF Performing Lab: see note ML - [facility] LB Troponin I High Sensitivity Reviewed date:01/24/2024 01:26:44 PM Interpretation: Performing Lab: Notes/Report: [facility] , Troponin I High Sensitivity 11.7 4.0-51.3 pg/mL CUT-OFF POINTS HAVE BEEN ESTABLISHED BASED ON THE FOURTH UNIVERSAL DEFINITION OF MYOCARDIAL INFARCTION. THE UPPER REFERENCE LIMIT (URL) OF TROPONIN, DEFINED THE 99TH PERCENTILE OF cTnI DISTRIBUTION IN A REFERENCE POPULATION, HAS BEEN CONFIRMED THE DECISION THRESHOLD FOR NC DIAGNOSIS. 99TH PERCENTILE = 51.4 PG/ML NOTE: HIGH-SENSITIVITY TROPONIN ASSAY IS NOT INTENDED TO BE USED IN ISOLATION BUT SHOULD BE INTERPRETED IN CONJUNCTION WITH OTHER DIAGNOSTIC AND CLINICAL INFORMATION. Performing Lab: see note ML - [facility] LB XR chest 1V Reviewed date:01/23/2024 06:00:42 PM Interpretation: Performing Lab: Notes/Report: Source Facility: [facility]-[address] [place] [address] [place] [address] XRay Report Signed Patient: JUSTIN SADLER MR#: [id number] : 1950 Acct:[id number] Age/Sex: 73 / F ADM Date: 01/23/24 Loc: ER Attending Dr: Ordering Physician: Holli Ocampo Date of Service: 01/23/24 Procedure(s): XR chest 1V Accession Number(s): [id number] cc: Debbie Arvizu M.D.; Holli Ocampo [place] [id number] Patient Name: JUSTIN SADLER MRN: [id number] date: 1950 Sex: F Assigned Patient Location: ER Current Patient Location: ER Accession/Order Number: [id number] Exam Date: 01/23/2024 17:28 Report Date: 01/23/2024 [...] M.D. Signed By: 01/23/241754 DD/ 51 TD/TT: Diamond Cleaner: [place] [address] XRay Report Signed Patient: MARY ASDLER SE MR#: [id number] : 1950 Acct:[id number] Age/Sex: 73 / F ADM Date: 01/23/24 Loc: ER Attending Dr: Ordering Physician: Holli Ocampo Date of Service: 01/23/24 Procedure(s): XR chest 1V Accession Number(s): [id number] cc: Debbie Arvizu M.D. ; Holli Ocampo [address] [address] Patient Name: JUSTIN SADLER MRN: [id number] date: 1950 Sex: F Assigned Patient Location: ER Current Patient Loca tion: ER Accession/Order Numb er: [id number] Exam Date: 17:28 Report Date: 01/23/2024 17:52 [...] M.D. Signed By: 01/23/241754 DD/ 51 TD/TT: Diamond Cleaner: ECG 12 lead Reviewed date:01/24/2024 01:26:44 PM Interpretation: Performing Lab: Notes/Report: Source Facility: [place] [address] [place] [address] Electrocardiograph Report Signed Patient: JUSTIN SADLER MR#: [id number] : 1950 Acct:[id number] Age/Sex: 73 / F ADM Date: 01/23/24 Loc: ER Attending Dr: Ordering Physician: Holli Ocampo Date of Service: 01/23/24 Procedure(s): ECG 12 lead Accession Number(s): [id number] cc: [facility] Test Date: 2024-01-23 Pat Name: JUSTIN SADLER Department: Room: - Gender: Female Pressurised Container Filler: : 1950 Requested By: DEBBIE ARVIZU Order Number: [id number] Reading MD: DEBBIE ARVIZU Measurements Intervals [place] Rate: 81 P: 87 CA: 156 QRS: 68 QRSD: 88 T: 60 QT: 384 QTc: 421 Interpretive Statements 46650 Electronic atrial pacemaker 9120 atypical ECG Compared to ECG 01/19/2023 11:51:08 Sinus rhythm no longer present T-wave abnormality no longer present Electronically Signed On 01-24-2024 5:15:18 EST by DEBBIE ARVIZU Dictated By: Debbie Arvizu M.D. Signed By: 01/24/24514 DD/ 11 TD/TT: Diamond Cleaner: [place] [address] Electrocardiograph Report Signed Patient: MARY SADLER SE MR#: [id number] : 1950 Acct:[id number] Age/Sex: 73 / F ADM Date: 01/23/24 Loc: ER Attending Dr: Ordering Physician: Holli Ocampo Date of Service: 01/23/24 Procedure(s): ECG 12 lead Accession Number(s): [id number] cc: [facility] Test Date: 2024-01-23 Pat Name: JUSTIN ZELAYA Department: 23 Room: - Gender: Female Pressurised Container Filler: : 1950 Requ ested By: DEBBIE ARVIZU Order Number: [id number] Reading MD: DEBBIE ARVIZU Measurements Intervals [place] Rate: 81 P: 87 CA: 156 QRS: 68 QRSD: 88 T: 60 QT: 384 QTc: 421 Interpretive Statements 10754 Electronic atr ial pacemaker 9120 atypical ECG Compared to ECG 01/19/2023 11:51:08 Sinus rhythm no long er present T-wave abnormality n o longer present Electronically Virgie d On 01-24-2024 5:15:18 EST by DEBBIE ARVIZU Dictated By: Perri Arvizu M.D. Signed By: 01/24/24514 DD/ 11 TD/TT: Diamond Cleaner: Troponin I High Sensitivity Reviewed date:01/23/2024 06:00:42 PM Interpretation: Performing Lab: Notes/Report: [facility] , Troponin I High Sensitivity 11.0 4.0-51.3 pg/mL CUT-OFF POINTS HAVE BEEN ESTABLISHED BASED ON THE FOURTH UNIVERSAL DEFINITION OF MYOCARDIAL INFARCTION. THE UPPER REFERENCE LIMIT (URL) OF TROPONIN, DEFINED THE 99TH PERCENTILE OF cTnI DISTRIBUTION IN A REFERENCE POPULATION, HAS BEEN CONFIRMED THE DECISION THRESHOLD FOR NC DIAGNOSIS. 99TH PERCENTILE = 51.4 PG/ML NOTE: HIGH-SENSITIVITY TROPONIN ASSAY IS NOT INTENDED TO BE USED IN ISOLATION BUT SHOULD BE INTERPRETED IN CONJUNCTION WITH OTHER DIAGNOSTIC AND CLINICAL INFORMATION. Performing Lab: see note - [facility] Prothrombin Time INR Reviewed date:01/23/2024 05:40:30 PM Interpretation: Performing Lab: Notes/Report: [facility] , Prothrombin Time 10.6 9.0-11.6 sec INR 1.00 DESIRED INR: 2.0-3.0 CONDITIONS NOT LISTED BELOW 2.5-3.5 FOR PROSTHETIC HEART VALVE REPLACEMENT 2.5-3.5 RECURRENT THROMBOSIS Performing Lab: see note [facility] PROF 14(COMP METB) Reviewed date:01/23/2024 06:00:42 PM Interpretation: Performing Lab: Notes/Report: [facility] , Sodium 143 136-145 mmol/L Potassium 5.3 [...] Ratio 0.8 Performing Lab: see note - [facility] LB POTASSIUM Reviewed date:01/24/2024 01:26:44 PM Interpretation: Performing Lab: Notes/Report: [facility] , Potassium 5.5 3.5-5.1 mmol/L Performing Lab: see note - [facility] LB CBC AUTO DIFF Reviewed date:01/23/2024 05:32:21 PM Interpretation: Performing Lab: Notes/Report: [facility] , White Blood Count 8.2 4.0-11.0 10 [...] Performing Lab: see note ML - [facility] LB MR LUMBAR SPINE WO CONTRAST Reviewed date:01/23/2024 05:32:21 PM Interpretation: Performing Lab: Notes/Report: MR LUMBAR SPINE WO CONTRAST 11/23/2023 12:56 PM ORDER IN EPIC Aerobic Culture Reviewed date:09/07/2024 07:14:18 PM Interpretation: Performing Lab: Notes/Report: [facility] , Aerobic Culture See Below For Report Aerobic Culture Aerobic Culture Mixed skin sonny Aerobic Culture Aerobic Culture Performed at: [facility] Aerobic Culture Aerobic Culture [address], [place] [id number] Aerobic Culture Aerobic Culture Road Marker: Serena Medina PhD, Phone: [phone] Aerobic Culture Performing Lab: see note LC - [facility] LB SEE REPORT - Technology Applications Teacher Id information not found for OBX-specific television news producer legend Reason For Referral Diagnosis 1 Chronic kidney disea se (CKD), stage III (moderate) (N18.30) Referral Organization [facility] Referring Provider First Name Dontrell Referring Provider Last Name [facility] Referred Provider Lizette Schaffer Referred Provider Specialty Nephrology Referral Priority Routine Diagnosis 1 Spinal stenosis, lum bar region with neurogenic claudication (M48.062) Referral Organization [facility] Referring Provider First Name Dontrell Referring Provider Last Name [facility] Referring Provider [facility] denis Referred Provider Pain Management, TB Referred Provider Specialty Pain Medicin e Referral Priority Routine Diagnosis 1 Bladder prolapse, fe male, acquired (N81.10) Referral Organization [facility] Referring Provider First Name Dontrell Referring Provider Last Name [facility] Referring Provider [facility] Referred Provider Ladonna Malagon Referred Provider Specialty Urology Referral Priority Routine Diagnosis 1 Encounter for examin ation of ears and hearing without abnormal findings (Z01.10) Referral Organization [facility] Referring Provider First Name Dontrell Referring Provider Last Name [facility] Referring Provider [facility] Referred Provider Lakshmi Mathews Referred Provider Specialty Otolaryngolo gy Referral Priority Routine Reason Patient would like B sabina office please! Diagnosis 1 Hyperproteinemia (E8 8.09) Referral Organization [facility] Referring Provider First Name Dontrell Referring Provider Last Name [facility] Referring Provider [facility] Referred Organization [facility] [place] Referred Provider Beatriz Campos Referred Address [address], [place],[address],[place] Referred Provider Specialty Hematology/O ncology Referral Priority Routine Diagnosis 1 Rectal bleeding (K62 .5) Referral Organization [facility] Referring Provider First Name Dontrell Referring Provider Last Name [facility] Referred Provider Rigoberto Tam Referred Provider Specialty Gastroentero logy Referral Priority Routine Diagnosis 1 Open wound of leg, l eft, subsequent encounter (S81.412D) Referral Organization [facility] Referring Provider First Name Dontrell Referring Provider Last Name Nolberto Referring Provider Speciality [facility] denis Referred Provider Isael Mart Referred Provider Specialty Wound Care Referral Priority Routine Medications Medication SIG (Take, Route, Frequency, Duration) Notes Start Date End Date Status Azelastine HCl 137 MCG/SPRAY INSTILL 1 S PRAY IN EACH NOSTRIL TWICE DAILY FOR 30 DAYS for 90 PRN Active Pantoprazole Sodium 40 MG 1 tablet Orall y twice daily for 30 days Active Aspirin 81 81 MG 1 tablet Orally Once a day Active Magnesium 400 MG 1 capsule Orally [...] meals Orally Twice a day 07/29/2023 Active Vitamin D Active Bumetanide 1 MG 1 tablet Orally Once a day 08/03/2024 Active Sodium Polystyrene Sulfonate - as directed [...] every 4 hrs for 30 days Active Immunizations Vaccine Route Administration Date Status [...] Status W/U Status Risk Notes Problem Hyperkalemia (37442277) Hyperkalemia (E87.5) Active confirmed Problem 637874753 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) Active confirmed Problem 87774212 Sick sinus syndrome (I49.5) Active confirmed Problem Non-pressure chronic ulcer of other part of left lower leg with fat layer exposed (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) Active confirmed Problem Chronic kidney disease stage 3 (disorder) (504738981) Chronic kidney disease, stage 3 (moderate) (N18.3) Active confirmed Problem 01459388 Bradycardia, unspecified (R00.1) Active confirmed Problem 911490262 Morbid obesity (E66.01) Active confirmed Problem COPD - Chronic obstructive pulmonary disease (76585602) COPD (chronic obstructive pulmonary disease) (J44.9) Active confirmed Problem Hypothyroidism (10669753) Hypothyroidism (E03.9) Active confirmed Problem Coronary artery disease (13230075) CAD (coronary artery disease) (I25.10) Active confirmed Problem Spinal stenosis (20674898) Spinal stenosis (M48.00) Active confirmed Problem Chronic kidney disease (635673472) CKD (chronic kidney disease) (N18.9) Active confirmed Problem Cardiac pacemaker in situ (905173453) Pacemaker (Z95.0) Active confirmed Problem Dizziness (788576353) Dizziness (R42) Active confirmed Problem Transient ischemic attack (371884288) TIA (transient ischemic attack) (G45.9) Active confirmed Problem Migraine (80184501) Migraine (G43.909) Active c onfirmed Problem 03971247 Chronic obstructive pulmonary disease, unspecified COPD type (J44.9) Active confirmed Problem Pain in right foot (228464234125417) Right foot pain (M79.671) Active confirmed Problem Serous otitis media (40147041) Serous otitis media (H65.90) Active confirmed Problem Cellulitis (870225030) Cellulitis (L03.90) Active confirmed Problem Diverticulitis (26418956) Diverticulitis (K57.92) Active confirmed Problem Hyperproteinemia (26511820) Hyperproteinemia (E88.09) Active confirmed Problem Tubular adenoma (948823867) Tubular adenoma (D36.9) Active confirmed Problem Lumbar spondylosis (583252657) Lumbar spondylosis (M47.816) Active confirmed Problem Ocular migraine (84345867) Ocular migraine (G43.109) Active confirmed Problem 542277493 Multiple pulmona ry nodules (R91.8) Active confirmed Problem Midline cystocele (945805563) Bladder prolapse, female, acquired (N81.10) Active confirmed Problem Lumbosacral spondylosis (763923143) Lumbosacral spondylosis (M47.817) Active confirmed Problem Anemia of chronic renal failure (51055598) Anemia due to stage 3 chronic kidney disease (D63.1) Active confirmed Problem Chronic venous hypertension with ulcer and inflammation involving left side (I87.332) Active confirmed Problem Essential hypertension (63032094) BP (high blood pressure) (I10) Active confirmed Problem 88316650 Pure hypercholesterolem ia, unspecified (E78.00) Active confirmed Problem Secondary pulmonary hypertension (32372867) Other secondary pulmonary hypertension (I27.29) Active confirmed Problem Pulmonary hypertension (09003824) Pulmonary hypertension (I27.20) Active confirmed Problem Neurogenic claudication (580894436) Spinal stenosis, lumbar region with neurogenic claudication (M48.062) Active confirmed Problem Malnutrition of mild degree ([place]: 75% to less than 90% of standard weight) (94072282) Mild protein malnutrition (E44.1) Active confirmed Problem 266041021 COVID-19 (U07.1) Active confirmed Problem Body mass index 40+ - severely obese (266356545) Body mass index [BMI] 45.0-49.9, adult (Z68.42) Active confirmed Problem Body mass index 40+ - morbidly obese (146370475) Body mass index [BMI] 50.0-59.9, adult (Z68.43) Active confirmed Problem Chronic kidney disease stage 3 (disorder) (899925380) Chronic kidney disease (CKD), stage III (moderate) (N18.30) Active confirmed Problem 564455259 Other ventricula r tachycardia (I47.29) Active confirmed Problem 394685105 Other supraventricular tachycardia (I47.19) Active confirmed Vital Signs Heart Rate 77 /min 09/26/2024 Temperature 97.0 degrees Fahrenheit 09/26/2024 Respiratory Rate 80 /min 09/26/2024 Oximetry 94 % 09/26/2024 Blood pressure diastolic 64 mm Hg 09/26/2024 Height 65 in 09/26/2024 Blood pressure systolic 123 mm Hg 09/26/2024 Weight 287.8 lbs 09/26/2024 BMI 47.89 kg/m2 09/26/2024 Encounters Encounter Location Date Provider Diagnosis [address] [place] [address] 08/08/2024 Dontrell Hoy Cellulitis L03.90 [address] [place] [address] 08/09/2024 Dontrell Hoy Cellulitis L03.90 [address] [place] [address] 03/10/2024 Dontrell Hoy Right foot pain M79. 671 [address] [place] [address] 04/17/2024 Dontrell Hoy Serous otitis media H65.90 [address] [place] [address] 08/03/2024 Dontrell Hoy Migraine G43.909 [address] [place] [address] 09/04/2024 Dontrell Hoy Cellulitis L03.90 [facility] [place] [address] [place] [address] 11/23/2023 Donal Salmeron Multiple pulmonary nodules R91.8 ; COPD (chronic obstructive pulmonary disease) J44.9 ; History of tobacco abuse Z87.891 ; History of COVID-19 Z86.16 ; Encounter for screening for malignant neoplasm of respiratory organs Z12.2 ; Morbid obesity E66.01 and Body mass index [BMI] 45.0-49.9, adult Z68.42 [facility] [place] [address] [place] [address] 09/26/2024 Donal Salmeron Multiple pulmonary nodules R91.8 ; COPD (chronic obstructive pulmonary disease) J44.9 ; History of tobacco abuse Z87.891 ; Morbid obesity E66.01 and Body mass index [BMI] 45.0-49.9, adult Z68.42 [facility] [address] [place] [address] 12/22/[address] [facility] [address] [place] [place] [address] 01/25/2024 Dontrell Hoy Encounter for Medica re annual wellness exam Z00.00 [facility] [address] [place] [facility] [place] [address] 08/22/2024 [facility] [address] [place] [facility] [place] [address] 07/25/2024 [facility] [address] [place] [address] 12/22/2023 ASC Provider [facility] [address] [place] [address] 01/31/2024 Dontrell Hoy Spinal stenosis M48. 00 and Pulmonary hypertension I27.20 [facility] [address] [place] [address] 06/01/2024 Dontrell Hoy Acute bronchitis, unspecified organism J20.9 [facility] [address] [place] [place] [address] 09/30/2023 Dontrell Hoy Chronic kidney disea se (CKD), stage III (moderate) N18.30 [facility] [address] [place] [address] 10/04/2023 Dontrell Hoy COPD (chronic obstructive pulmonary disease) J44.9 [facility] [address] [place] [place] [address] 01/25/2024 Dontrell Hoy [facility] [address] [place] [address] 01/31/2024 Dontrell Hoy Spinal stenosis, lum bar region with neurogenic claudication M48.062 [facility] [address] [place] [address] 02/01/2024 Dontrell Hoy [facility] [address] [place] [address] 02/21/2024 Dontrell Hoy Bladder prolapse, female, acquired N81.10 [facility] [address] [place] [address] 03/11/2024 Dontrell Hoy [facility] [address] [place] [address] 04/05/2024 Dontrell Hoy COPD (chronic obstructive pulmonary disease) J44.9 and Right foot pain M79.671 [facility] [address] [place] [address] 04/24/2024 Dontrell Griffithy Encounter for examination of ears and hearing without abnormal findings Z01.10 [facility] [address] [place] [address] 05/31/2024 Dontrell Hoy Other fatigue R53.83 ; Other abnormal glucose R73.09 ; Pure hypercholesterolemia, unspecified E78.00 and Encounter for screening for malignant neoplasm of colon Z12.11 [facility] [address] [place] [address] 06/08/2024 Dontrell Nachoy [facility] [address] [place] [address] 06/20/2024 Dontrell Hoy Hypothyroidism E03.9 [address] [place] [address] 06/22/2024 Dontrell Hoy Rectal bleeding K62. 5 [address] [place] [address] 06/22/2024 Dontrell Hoy Hyperproteinemia E88 .09 [address] [place] [address] 07/14/[address] [facility] [address] [place] [address] 08/11/2024 Dontrell Hoy Contusion of head S00.93XA and Contusion of leg, left S80.12XA [facility] [address] [facility] [place] [address] 08/15/2024 Dontrell Arvizu [facility] [address] [facility] [place] [address] 08/28/2024 Dontrell Arvizu [facility] [address] [facility] [place] [address] 09/04/2024 Dontrell Arvizu Open wound of leg, left, subsequent encounter S81.802D [facility] [address] [facility] [place] [address] 09/04/2024 Dontrell Arvizu [facility] [address] [address] 10/19/2023 Jose Angel Makenna Spinal stenosis, lum bar region with neurogenic claudication M48.062 ; Lumbosacral spondylosis M47.817 ; Other watermaster (current) drug therapy Z79.899 and Vertebrogenic low back pain M54.51 [facility] [address] [address] 01/19/2024 Bhavana Laberdee Lumbosacral spondylosis M47.817 ; Spinal stenosis, lumbar region with neurogenic claudication M48.062 ; Vertebrogenic low back pain M54.51 and 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 Consults: Has followed with neurosurgery, not planning surgical intervention at this time, following with cardiology 6. RTC : Following MRI to discuss options 09/26/2024 Multiple pulmonary nodules (ICD-10 - R91.8) New 2-3cm RUL nodules on LDCT 02/23/2022 compared to 02/25/2021. These have resolved on CT 08/26/2022. Follow-up LDCT 09/06/2023 noted a new 4.6 mm right upper lobe nodule. Recurrent RUL nature is unclear. She was due for LDCT August 2024, but she was never contacted to schedule the testing. With the closing of [facility] Pulmonology this week, I explained to the patient that I would be unable to F/U immediately with the patient if she were to get the LDCT done at this time. I provided her with options: -Either I or her PCP can order the LDCT and refer her to a different bundle sorter if something very concerning shows -Wait several [...] loss, excessive night sweats, fevers, or hemoptysis. 12/07/2023 Spinal stenosis, lumbar region with neurogenic [...] axial pain 07/29/23 - In PT at [facility], limited relief from TFESI, continued pain [...] progressed compared to prior. Findings most prominent L4-O0ddola there is moderate severe right neural foraminal [...] Will proceed with bilateral L4-5 transforaminal epidural [facility] [place]. Otherwise patient recommended to continue home exercise program, stretching, core strengthening, PT OT, advised to use assist device when ambulating and advise benefits of weight loss PLAN: 1. Interventions: Bilateral L4-5 transforaminal epidural in [facility] [place] Possible candidate for Vertiflex at adjacent segments, however I believe worsening of pain symptoms is due to disease progression at L3-4 and L4-5 levels rather than L1-2 and L2-3 Not a great Intracept candidate 2. Physical therapy: Continue PT/OT 3. Medications: OARRS checked, UDS today- appropriate Discontinue tramadol due to lack of benefit, could trial [place] versus Percocet 4. Imaging: History of lumbar [...] axial pain 07/29/23 - In PT at [facility], limited relief from TFESI, continued pain [...] progressed compared to prior. Findings most prominent L4-[id number] there is moderate severe right neural foraminal [...] Will proceed with bilateral L4-5 transforaminal epidural [facility] outpatient surgery center. Otherwise patient recommended to continue home exercise program, stretching, core strengthening, PT OT, advised to use assist device when ambulating and advise benefits of weight loss PLAN: 1. Interventions: Bilateral L4-5 transforaminal epidural in [facility] outpatient surgery center Possible candidate for Vertiflex at adjacent segments, however I believe worsening of pain symptoms is due to disease progression at L3-4 and L4-5 levels rather than L1-2 and L2-3 Not a great Intracept candidate 2. Physical therapy: Continue PT/OT 3. Medications: OARRS checked, UDS today- appropriate Discontinue tramadol due to lack of benefit, could trial [place] versus Percocet 4. Imaging: History of lumbar MRI from 2021 Reviewed new lumbar imaging with patient as above 5. Consults: Has followed with neurosurgery, not planning surgical intervention at this time, following with cardiology 6. RTC : For procedure 01/19/2024 Lumbosacral spondylosis (ICD-10 - M47.817) 01/25/2024 Encounter for Medicare annual wellness exam [...] vaporizer to help keep the drainage moist. Zzff-tfz-hmpjcta Nasal Saline may help the stuffy and runny nose. Use Ibuprofen and or Tylenol as needed for fever, chills, body aches or pain. Children 5 years old should not be given scmo-xkv-ezitnfk cough and cold medications such as guaifenesin and dextromethorphan. If you're over age 5, you may try guer-peh-gqurqbn cold medications such as guaifenesin and dextromethorphan, [...] - L03.90) 09/04/2024 Cellulitis (ICD-10 - L03.90) 09/30/2023 Chronic kidney disease (CKD), stage III [...] due to lack of benefit, could trial [place] versus Percocet 2. Continue home exercise program, [...] progressed compared to prior. Findings most prominent L4-V0icijy there is moderate severe right neural foraminal [...] back pain (ICD-10 - M54.51) 12/07/2023 Other shelter (current) drug therapy (ICD-10 - Z79.899) This [...] axial pain 07/29/23 - In PT at [facility], limited relief from TFESI, continued pain [...] progressed compared to prior. Findings most prominent L4-Q2inpxp there is moderate severe right neural foraminal [...] Will proceed with bilateral L4-5 transforaminal epidural [facility] outpatient surgery center. Otherwise patient recommended to continue home exercise program, stretching, core strengthening, PT OT, advised to use assist device when ambulating and advise benefits of weight loss PLAN: 1. Interventions: Bilateral L4-5 transforaminal epidural in [facility] outpatient surgery center Possible candidate for Vertiflex at adjacent segments, however I believe worsening of pain symptoms is due to disease progression at L3-4 and L4-5 levels rather than L1-2 and L2-3 Not a great Intracept candidate 2. Physical therapy: Continue PT/OT 3. Medications: OARRS checked, UDS today- appropriate Discontinue tramadol due to lack of benefit, could trial [place] versus Percocet 4. Imaging: History of lumbar MRI from 2021 Reviewed new lumbar imaging with patient as above 5. Consults: Has followed with neurosurgery, not planning surgical intervention at this time, following with cardiology 6. RTC : For procedure 09/26/2024 COPD (chronic obstructive pulmonary disease) (ICD-10 [...] get it ordered at the new practice. 10/19/2023 Lumbosacral spondylosis (ICD-10 - M47.817) This [...] L4-5, L5-S1 07/29/23 - In PT at [facility], limited relief from TFESI, continued pain [...] x-ray, ordered new lumbar MRI faxed to [facility] due to pacemaker 5. Consults: Has followed [...] of COVID-19 (ICD-10 - Z86.16) 10/19/2023 Other watermaster (current) drug therapy (ICD-10 - Z79.899) This [...] L4-5, L5-S1 07/29/23 - In PT at [facility], limited relief from TFESI, continued pain [...] x-ray, ordered new lumbar MRI faxed to [facility] due to pacemaker 5. Consults: Has followed with neurosurgery, not planning surgical intervention at this time, following with cardiology 6. RTC : Following MRI to discuss options 09/26/2024 Morbid obesity (ICD-10 - E66.01) Morbid obesity is inducing a restrictive pulmonary physiology. Weight loss highly recommended. 12/07/2023 Vertebrogenic low back pain (ICD-10 - [...] progressed compared to prior. Findings most prominent L4-R6hvujq there is moderate severe right neural foraminal [...] Will proceed with bilateral L4-5 transforaminal epidural [facility] outpatient surgery center. Otherwise patient recommended to continue home exercise program, stretching, core strengthening, PT OT, advised to use assist device when ambulating and advise benefits of weight loss PLAN: 1. Interventions: Bilateral L4-5 transforaminal epidural in [facility] outpatient surgery center Possible candidate for Vertiflex at adjacent segments, however I believe worsening of pain symptoms is due to disease progression at L3-4 and L4-5 levels rather than L1-2 and L2-3 Not a great Intracept candidate 2. Physical therapy: Continue PT/OT 3. Medications: OARRS checked, UDS today- appropriate Discontinue tramadol due to lack of benefit, could trial [place] versus Percocet 4. Imaging: History of lumbar MRI from 2021 Reviewed new lumbar imaging with patient as above 5. Consults: Has followed with neurosurgery, not planning surgical intervention at this time, following with cardiology 6. RTC : For procedure 01/19/2024 [employer] (current) use of opiate analgesic (ICD-10 - Z79.891) - 07/29/23 Drug screen negative 05/31/2024 Pure hypercholesterole tamar, unspecified (ICD-10 - E78.00) 05/31/2024 Encounter for screening for malignant neoplasm of colon (ICD-10 - Z12.11) 09/26/2024 Body mass index [BMI] 45.0-49.9, adult (ICD-10 - Z68.42) 10/19/2023 Vertebrogenic low back pain (ICD-10 - [...] L4-5, L5-S1 07/29/23 - In PT at [facility], limited relief from TFESI, continued pain [...] x-ray, ordered new lumbar MRI faxed to [facility] due to pacemaker 5. Consults: Has followed [...] 45.0-49.9, adult (ICD-10 - Z68.42) 11/23/2023 Other 09/26/2024 Other Plan Of Treatment Pending Test Test [...] for Screening* 025 Next Appt Details Provider Name:Beatriz Campos , 01/23/2025 09:30:00 AM, [address] [place], [address], Insurance Providers Payer Name Payer Address Payer Phone Subscriber Number Group Number Insured Name Patient Relationship to Insured Coverage Start Date Coverage End Date [place] [address] [place] [address] [id number] [facility] Self - patient is the insured 4 [employer] MEDICARE SUPPLEMENT [address] [address] [place] [address] [id number] [facility] Self - patient is the insured 8 [...] hypertension I 27.29 Surgical History Surgery Date(Month/Year) colonoscopy 07/19/24 Lumbar/Sacral Injections- Dr. Mensah 05/13 Colonoscopy & EGD - [facility] 01/2023 PPM Implant- Biotronik 01/12/2023 Back Surgery 05/11/2021 hysterectomy Rt Myringotomy, t-tube placement, nasal endoscopy- Dr Mathews 07/06/2024 cataract-lens implants Right Foot Surgery
--- OUTSIDE RECORDS SUMMARY | 2024-09-27 13:04 | XMS_ITS | Encounter Summary ---
Author Organization [facility] Address [address] [address] Care Team Providers Care Traffic Checker Name Role Phone Jeremaih Arvizu MD Primary Care Provider [phone] Encounter Details Date Type Department Care Team (Late st Contact Info) Description 02/24/2022 Orders Only [facility] [address] [place] [id number] Karolyn Werner MA Essential hypertension Social History [...] Description 10/24/2024 10:30 AM EDT Ancillary Procedure [facility] [address] [place] [address] 10/24/2024 11:15 AM EDT Office Visit [facility] [address] [place] [address] Irvin Posada MD [address] [place] [address] documented as of this encounter Visit Diagnoses Diagnosis Essential hypertension Unspecified essential hypertension documented in this encounter Care Teams Traffic Checker Relationship Specialty Start Date End Date Jeremiah Arvizu MD [address] [facility] [place] [address] PCP - General 01/26/22 documented as of this encounter
== END 2024-09-27 13:01 | disposition home or self-care (01) ==
LOC: WC 13:00
PROVIDERS: PCP Family Medicine; Visit Provider Physician Assistant
DX: I87.332 Chronic venous hypertension (idiopathic) with ulcer and inflammation of left lower extremity (principal); L97.825 Non-pressure chronic ulcer of other part of left lower leg with muscle involvement without evidence of necrosis
CPT/HCPCS: G0463

== ENCOUNTER 2024-10-04 10:36 | Outpatient (OUT) | payer MEDICARE, SELFPAY | END 2024-10-04 10:37 | disposition home or self-care (01) | LOC: WC 10:37 | PROVIDERS: PCP Family Medicine; Visit Provider Physician Assistant | DX: I87.332 Chronic venous hypertension (idiopathic) with ulcer and inflammation of left lower extremity (principal); L97.825 Non-pressure chronic ulcer of other part of left lower leg with muscle involvement without evidence of necrosis | CPT/HCPCS: G0463 ==

== ENCOUNTER 2024-10-16 06:42 | Day surgery (SDC) | payer MEDICARE, SELFPAY ==
--- OUTSIDE RECORDS SUMMARY | 2024-10-16 06:46 | XMS_ITS | CCD ---
Author Organization [facility] Care Team Providers Care Leverman Name Role Phone PHYSICIAN, DEFAULT Unavailable Unavailable PHYSICIAN, DEFAULT Unavailable Unavailable DEBBIE BHATIA Unavailable Unavailable SRIRAM ., DR LEWIS Consulting Unavailable HOY ., DR LEWIS Attending Unavailable HOY ., DR LEWIS Primary Care Unavailable HOY ., DR LEWIS Admitting Unavailable ROCKY HILL, DR RAJI Odonnell Consulting Unavailable HOY ., [...] Maya Consulting Unavailable CAPO HURTADO Attending Unavailable HURTADOJAMESCAPO Admitting Unavailable CAPO HURTADO Consulting Unavailable JOSEY KWOK Admitting Unavailable HOY .DR LEWIS Primary Care Unavailable JOSEY KWOK Consulting Unavailable JOSEY KWOK Attending Unavailable JOSEY KWOK Consulting Unavailable SRIRAM .DR LEWIS Primary Care Unavailable JOSEY KWOK Attending Unavailable JOSEY KWOK Admitting Unavailable SRIRAM .DR LEWIS Primary Care Unavailable SAMSA ., AMANDA Attending Unavailable SAMSA ., AMANDA Admitting Unavailable SAMSA ., AMANDA Consulting Unavailable HOY .DR LEWIS Primary Care Unavailable JULIANNE .EUN Admitting Unavailable JULIANNE .EUN Attending Unavailable LTIO .SOMMER Consulting Unavailable SRIRAM ., DR LEWIS Primary Care Unavailable MISC, DR LOPEZ Admitting Unavailable MISC, DR LOPEZ Attending Unavailable HOLula .DR LEWIS Primary Care Unavailable SAMSA ., AMANDA Attending Unavailable SAMSA ., AMANDA Admitting Unavailable Ambar Maya Consulting Unavailable SAMSA ., AMANDA Consulting Unavailable HOY ., DR LEWIS Primary Care Unavailable BAILEY, DR RAMIREZ Attending Unavailable ELTAHAWY, DR RAMIREZ [...] Unavailable WEST, DR RAJI Odonnell Consulting Unavailable Debbie Bhatia Primary Care Physician [phone] Debbie Bhatia MD Primary Care Provider [phone] NKBRADEN ROSETTA Attending Unavail able NKMILO-AMDENICE ROSETTA Attending Unavail able NKELSA FELICIANONA Referring Unavail able NKMILO-CHRIS ROSETTA Admitting Unavail able MILLI MENDEZABENA Attending Unavail able Debbie Bhatia Referring Unavailable NKMILO-ELSA PEREZNA Attending Unavail able Debbie Bhatia MD Primary Care Provider [phone] Tracy BELTRÁN, Imjavier Attending Provider Debbie Bhatia MD Primary Care Provider [phone] RYAN MEEHAN Referring Unavailable ELTAHAWY, TATO Attending Unavailable JOSEY KWOK Referring Unavailable JOSEY KWOK Attending Unavailable JOSEY KWOK Attending Unavailable SUNDAR, JOSEY Referring Unavailable JOSEY KWOK Referring Unavailable JOSEY KWOK Referring Unavailable DEBBIE BHATIA Referring Unavailable RYAN MEEHAN Referring Unavailable TIMOTHYMISORENJOHN H Attending Unavailable DEBBIE BHATIA Referring Unavailable TIMMIS, JOHN H Attending Unavailable TIMMIS, JOHN H Attending Unavailable TIMMISJOHN H Attending Unavailable MD ROSETTA MENDEZ Admitting Unav ailable MD ROSETTA MENDEZ Attending Unav ailable MD ROSETTA MENDEZ Referring Unav ailable MD ROSETTA MENDEZ Attending Unav ailable MD ROSETTA MENDEZ Attending Unav ailable MD ROSETTA MENDEZ Attending Unav ailable MD ROSETTA MENDEZ Referring Unav ailable MD ROSETTA MENDEZ Admitting Unav ailable Debbie Bhatia MD Primary Care Provider Lizette Schaffer MD Attending Provider Asaad , Imjavier Other Provider Gieditis , Andrius Vytautemily Attending Unavailable Gijunaid BELTRÁN, Andrius Vytautemily Attending Unavailable Gijunaid BELTRÁN, Andrius Vytautemily Attending Unavailable Lizette Schaffer MD Attending Provider [phone] Debbie Bhatia Primary Care Unavailable Asajavier, Imjavier Admitting Unavailable Kal Molina Attending Unavailable Debbie Bhatia Primary Care Unavailable Lizette Schaffer Admitting Unavailable Lizette Schaffer Attending Unavailable Allergies Allergy Classification Reported Allergen(s) Allergy Type Date of Onset Reaction(s) Facility (9 sources) Penicillins; Translations: [PENICILLINS] Drug allergy (disorder) 5 AOF, Unknown Reaction [facility] Repository Comment on above: yeast infection (6 sources) Adhesive Tape; Translations: [adhesive tape] Allergy to substance 4 skin rash [facility] (7 sources) Adhesive bandage; Translations: [Adhesive Bandage] Drug allergy Weal (disorder) [facility] [place] (14 sources) Penicillins Drug Allergy 2 [facility] (2 sources) fluticasone; Translations: [fluticasone] Drug Allergy 5 Headache [facility] (1 source) Penicillins Drug allergy (disorder) 5 [facility] Repository Medications Current Medications Medication Drug Class(es) Dates Sig (Normalized) Sig (Original) [id number] actuat albuterol 0.09 mg/actuat metered dose inhaler (20 sources) beta2-Adrenergic Agonist Start: 10-24-2024 take 2.5 mg by inhalation every four to six hours as needed for wheezing Albuterol Sulfate 2.5 mg /3 mL (0.083 %) solution for nebulization Active 2.5 MG INHALATION EVERY 4-6 HOURS as needed for shortness of breath or wheezing January 06, 2024 12:00am Complies with drug therapy Start: 01-06-2024 take 1 puff(s) by in halation four times daily as needed for wheezing Albuterol Sulfate 90 mcg/actuation HFA aerosol inhaler Active 2 PUFF INHALATION Four times daily as needed for shortness of breath or wheezing January 06, 2024 12:00am Complies with drug therapy Start: 11-25-2022 take 2.5 mg by inhal [...] aspirin 81 mg delayed release oral tablet (20 sources) Platelet Aggregation Inhibitor, Nonsteroidal Anti-inflammatory Drug Start: 11-25-2022 Aspirin (Adult Low Dose Aspirin) 81 mg tablet,delayed release (DR/EC) Active 81 MG PO Daily January 06, 2024 12:00am Complies with drug therapy azelastine hydrochloride 0.137 mg/actuat metered dose nasal spray (10 sources) Histamine-1 Receptor Antagonist Start: 06-08-2024 Azelastine HCl 137 MCG/SPRAY solution every 12 (twelve) hours 06/08/2024 Active bumetanide 1 mg oral tablet (10 sources) Loop Diuretic Start: 11-25-2022 take 1 tablet by mouth once daily Bumetanide 1 mg tablet Active 1 MG PO Daily January 06, 2024 12:00am Complies with drug therapy carvedilol 25 mg oral tablet (10 sources) alpha-Adrenergic Florence, beta-Adrenergic [place] Start: 01-06-2024 take 12.5 mg by mouth twice daily Carvedilol Active 12.5 MG PO Twice daily January 06, 2024 12:00am Start: 11-25-2022 Carvedilol 25 mg tablet Active 12.5 MG PO Twice daily January 06, 2024 12:00am Complies with drug therapy cephalexin 500 mg oral capsule (7 sources) Cephalosporin Antibacterial Start: 07-13-2024 End: 07-18-2024 take 1 capsule by mouth every twelve hours cephalexin (Keflex) 500 MG capsule TAKE 1 CAPSULE BY MOUTH EVERY 12 HOURS FOR 5 DAYS 07/13/2024 Active ciprofloxacin 3 mg/ml / dexamethasone 1 mg/ml otic suspension (3 sources) Corticosteroid, Quinolone Antimicrobial Start: 08-09-2024 End: 08-16-2024 ciprofloxacin-dex AMETHasone (CiproDEX) otic suspension Indications: ETD (Eustachian tube dysfunction), right Administer 4 drops into the right ear in the morning and 4 drops before bedtime. Do all this for 7 days. 7.5 mL 08/09/2024 08/16/2024 Active diclofenac potassium 50 mg oral tablet (2 sources) Nonsteroidal Anti-inflammatory Drug Start: 11-25-2022 take 1 tablet by mouth once daily diclofenac potassium 50 mg oral tablet 50 mg = 1 tab(s), Oral, Daily, Refills(s) 0 Start Date: 11/25/22 Status: Ordered doxycycline monohydrate 100 mg oral capsule (6 sources) Tetracycline-class Drug Start: 08-08-2024 doxycycline (Monodox) 100 MG capsule 08/08/2024 Active fluticasone propionate 0.05 mg/actuat metered dose nasal spray (6 sources) Corticosteroid Start: 05-09-2024 End: 06-20-2024 fluticasone (Flonase) 50 MCG/ACT nasal spray Indications: OME (otitis media with effusion), right 2 sprays on the right twice daily. Shake gently. Before first use, prime pump. After use, clean tip and replace cap. 48 g 3 05/09/2024 06/20/2024 Discontinued (Side effects) hydrALAZINE hydrochloride 100 mg oral tablet (14 sources) Arteriolar Vasodilator Start: 10-05-2024 take 1 tablet by mouth twice daily Hydralazine 100 mg tablet Active 100 MG PO Twice daily October 05, 2024 11:09am Complies with drug therapy Start: 11-25-2022 End: 10-05-2024 take 1 tablet by mouth three times daily Hydralazine 100 mg tablet Discontinued 100 MG PO Three times daily January 06, 2024 12:00am October 05, 2024 11:10am isosorbide dinitrate 10 mg oral tablet (4 sources) Nitrate Vasodilator Start: 11-25-2022 take 1 tablet by mouth once daily isosorbide dinitrate 20 mg Tab 20 mg = 1 tab(s), Oral, Daily, Refills(s) 0 Start Date: 11/25/22 Status: Ordered Start: 11-25-2022 [facility] isosorbide dinitrate 10 mg Tab 10 mg = 1 tab(s), Oral, Daily, Refills(s) 0 Start Date: 11/25/22 Status: Ordered levothyroxine sodium 0.088 mg oral tablet (20 sources) l-Thyroxine Start: 06-27-2024 take 1 tablet by mouth once Levothyroxine 88 mcg tablet Active 88 MCG PO Once June 27, 2024 12:00am Complies with drug therapy Start: 06-26-2024 take [address] [facility] once daily levothyroxine 88 mcg (0.088 mg) [...] the morning. Take before meals. Active liothyronine sodium 0.025 mg oral tablet (20 sources) l-Triiodothyronine Start: 01-06-2024 take 1 tablet by mouth once daily Liothyronine 25 mcg tablet Active 37.5 MCG PO Daily January 06, 2024 12:00am Complies with drug therapy Start: 01-06-2024 take 1 tablet by shaun th once daily Liothyronine 25 mcg tablet Active [...] morning. Active lisinopril 10 mg oral tablet (20 sources) Angiotensin Converting Enzyme Inhibitor Start: 01-06-2024 take 1 tablet by mouth once daily Lisinopril 10 mg tablet Active 10 MG PO Daily January 06, 2024 12:00am Complies with drug therapy Start: 11-25-2022 take 1 tablet by shaun th once daily lisinopril 5 mg Tab 5 mg = 1 tab(s), Oral, Daily, Refills(s) 0 Start Date: 11/25/22 Status: Ordered lovastatin 20 mg oral tablet (20 sources) HMG-CoA Reductase Inhibitor Start: 11-25-2022 take 1 tablet by mouth once daily Lovastatin 20 mg tablet Active 20 MG PO Daily January 06, 2024 12:00am Complies with drug therapy magnesium oxide 400 mg oral tablet (3 sources) Start: 06-27-2024 take 1 tablet by mouth once daily Magnesium Oxide 400 mg magnesium tablet Active 400 MG PO Daily 90 June 27, 2024 12:00am Complies with drug therapy Magnesium Sulfate (2 sources) Start: 07-13-2024 magnesium sulf ate Refills(s) 0 [...] pantoprazole 40 mg delayed release oral tablet (14 sources) Proton Pump Inhibitor Start: 03-31-2024 take 1 tablet by mouth twice daily Pantoprazole 40 mg tablet,delayed release (DR/EC) Active 40 MG PO Twice daily June 27, 2024 11:17am Complies with drug therapy Start: 01-06-2024 End: 06-27-2024 take 1 tablet [...] day(s), # 9 tab(s), Refills(s) 0, Pharmacy: [facility]/pharmacy #[id number], 160.1, cm, 06/26/24 14:41:00 EDT, Height/Length Dosing, 136.8, kg, 06/26/24 14:41:00 EDT, Weight Dosing Start Date: 07/13/24 Stop Date: 07/16/24 Status: Ordered Quantity: 9.0 Unit: tab(s) Repeat number: 1 polyethylene glycol 3350 [id number] mg / potassium chloride 2970 mg / sodium bicarbonate 6740 mg / sodium chloride 5860 mg / sodium sulfate 20793 mg powder for oral solution (5 sources) Osmotic Laxative Start: 07-24-2024 Peg 3350-Electrolytes (Golytely) 236-22.74-6.74 -5.86 gram recon soln Active 240 ML PO Q10M 4000 July 24, 2024 12:00am until fecal effluent is clear Complies with drug therapy Start: 06-28-2024 End: 07-19-2024 Peg 3350-Electrolytes (Golyt lonnie) 236-22.74-6.74 -5.86 gram recon soln Discontinued 240 ML PO Q10M 4000 June 28, 2024 12:00am July 19, 2024 11:28am follow instructions given at office Completed/Discontinued Medications Medication Drug Class(es) Dates Sig (Normalized) Sig (Original) betamethasone 0.5 mg/ml / clotrimazole 10 mg/ml topical cream (10 sources) Azole Antifungal, Corticosteroid Start: 03-31-2024 betamethasone-cl otrimazole Top 0.05%-1% Crm 15 gram Refill(s) 0 Start Date: 03/31/24 Status: Ordered Repeat number: 1 Start: 01-06-2024 Clotrimazole-B etamethasone 1-0.05 % cream Active 1 APPLIC TOPICAL Daily as needed for rash January 06, 2024 12:00am Complies with drug therapy Start: 01-06-2024 Clotrimazole-B etamethasone 1-0.05 % cream Active APPLIC TOPICAL January 06, 2024 12:00am calcium carbonate 1500 mg / cholecalciferol 0.01 mg oral tablet (20 sources) Vitamin D Start: 01-06-2024 End: 06-27-2024 [...] / picosulfate sodium 0.0625 mg/ml oral solution (5 sources) Calculi Dissolution Agent, Anti-coagulant Start: 01-06-2024 [...] May hyoscyamine sulfate 0.125 mg oral tablet (5 sources) Start: 01-06-2024 End: 02-14-2024 take 1 tablet by mouth four times daily Hyoscyamine Sulfate 0.125 mg tablet Discontinued 0.125 MG PO Four times daily January 06, 2024 12:00am February 14, 2024 12:04pm sodium polystyrene sulfonate 98189 mg powder for oral suspension (11 sources) Start: 06-27-2024 End: 06-27-2024 take 15 g by mouth three times weekly Sodium Polystyrene Sulfonate powder Discontinued 15 GM PO 3 Times a week June 27, 2024 11:56am June 27, 2024 1:04pm Start: 06-27-2024 take 15 g by mouth t hree times weekly Sodium Polystyrene Sulfonate powder Active 15 GM PO 3 Times a week June 27, 2024 11:56am Start: 02-14-2024 End: 06-27-2024 take 15 g by mouth three times weekly Sodium Polystyrene Sulfonate powder Discontinued 15 GM PO 3 Times a week June 27, 2024 11:56am June 27, 2024 1:04pm traMADol hydrochloride 50 mg oral tablet (20 sources) Opioid Agonist Start: 08-09-2023 End: 06-27-2024 take 1 tablet by mouth twice daily as needed Tramadol 50 mg tablet Discontinued 50 MG PO Twice daily as needed January 06, 2024 12:00am June 27, 2024 11:19am Problems Active Problems Problem Classification Problem Date Documented Date Episodic/Chronic Cardiac dysrhythmias (20 sources) Supraventricular tachycardia; Translations: [Atrial fibrillation] Onset: 3 Chronic Chronic kidney disease (20 sources) Chronic kidney disease stage 4; Translations: [Chronic kidney disease, stage 4 (severe)] Onset: 4 01-06-2024 Chronic Chronic obstructive pulmonary disease and bronchiectasis (19 sources) Chronic obstructive lung disease; Translations: [Chronic obstructive pulmonary disease, unspecified] Onset: 5 11-25-2022 Chronic Conduction disorders (8 sources) Cardiac pacemaker in situ; Translations: [Presence of cardiac pacemaker] Onset: 4 02-14-2024 Chronic Congestive heart failure; nonhypertensive (3 sources) Acute combined systolic (congestive) and diastolic (congestive) heart failure; Translations: [Unspecified diastolic (congestive) heart failure] Onset: 2 Chronic Coronary atherosclerosis and other heart disease (19 sources) Coronary arteriosclerosis; Translations: [Atherosclerotic heart disease of [place] coronary artery without angina pectoris] Onset: 5 11-25-2022 Chronic Deficiency and other anemia (1 source) Anemia in chronic kidney disease; Translations: [Anemia in chronic kidney disease] Onset: 5 Chronic Disorders of lipid metabolism (20 sources) Hyperlipidemia, unspecified; Translations: [Pure hypercholesterolemia, unspecified] Onset: 2 11-25-2022 Chronic Essential hypertension (20 sources) Hypertensive disorder; Translations: [Essential hypertension] Onset: 0 11-25-2022 Chronic Fluid and electrolyte disorders (20 sources) Hyperkalemia; Translations: [Hyperkalemia] Onset: 4 01-06-2024 Episodic Gastrointestinal hemorrhage (1 source) Hemorrhage of anus and rectum; Translations: [Hemorrhage of anus and rectum] Onset: 5 Episodic Genitourinary symptoms and ill-defined conditions (20 sources) Stress incontinence (female) (male); Translations: [Female stress incontinence] Onset: 5 Chronic Headache; including migraine (2 sources) Migraine, unspecified, not intractable, without status migrainosus; Translations: [Migraine, unspecified, not intractable, without status migrainosus] Onset: 5 Chronic Headache; including migraine (2 sources) Headache; Translations: [Nonintractable headache, unspecified chronicity pattern, unspecified headache type] 05-09-2024 Episodic Hypertension with complications and secondary hypertension (17 sources) Hypertensive heart disease with heart failure; Translations: [Chronic kidney disease due to hypertension] Onset: 2 01-06-2024 Chronic Osteoporosis (4 sources) Age-related osteoporosis without current pathological fracture; Translations: [AGE-REL OSTEOPOR W/O CURR PATH FX] Onset: 2 Chronic Other diseases of bladder and urethra (4 sources) Urethral intrinsic sphincter deficiency; Translations: [Intrinsic sphincter deficiency (ISD)] Onset: 5 Episodic Other diseases of kidney and ureters (20 sources) Secondary hyperparathyroidism; Translations: [Secondary hyperparathyroidism of renal origin] Onset: 4 01-06-2024 Chronic Other diseases of kidney and ureters (4 sources) Secondary hyperparathyroidism of renal origin; Translations: [Secondary hyperparathyroidism (of renal origin)] Onset: 5 01-06-2024 Chronic Other diseases of veins and lymphatics (1 source) Lymphedema, not elsewhere classified; Translations: [LYMPHEDEMA NOT ELSEWHERE CLASSIFIED] Onset: 2 Chronic Other ear and sense organ disorders (2 sources) Mixed conductive and sensorineural hearing loss, unilateral, right ear, with unrestricted hearing on the contralateral side; Translations: [Mixed hearing loss, unilateral] 06-20-2024 Chronic Other ear and sense organ disorders (2 sources) Chronic right myringitis; Translations: [Chronic myringitis, right ear] 08-09-2024 Chronic Other ear and sense organ disorders (2 sources) Cerebrospinal fluid otorrhea; Translations: [CSF otorrhea] 08-09-2024 Episodic Other nutritional; endocrine; and metabolic disorders (19 sources) Morbid obesity; Translations: [Morbid (severe) obesity due to excess calories] Onset: 5 11-25-2022 Chronic Other nutritional; endocrine; and metabolic disorders (6 sources) Hypomagnesemia; Translations: [Hypomagnesemia] 02-14-2024 Chronic Other nutritional; endocrine; and metabolic disorders (3 sources) Hypomagnesemia; Translations: [Disorders of magnesium metabolism] Onset: 5 06-27-2024 Chronic Other nutritional; endocrine; and metabolic disorders (6 sources) Hyperuricemia; Translations: [Hyperuricemia without signs of inflammatory arthritis and tophaceous disease] 02-14-2024 Episodic Other nutritional; endocrine; and metabolic disorders (3 sources) Hyperuricemia without signs of inflammatory arthritis and tophaceous disease; Translations: [Other abnormal blood chemistry] Onset: 5 06-27-2024 Episodic Otitis media and related conditions (2 sources) Chronic right mastoiditis; Translations: [Chronic mastoiditis, right ear] 09-11-2024 Chronic Otitis media and related conditions (10 sources) Otitis media; Translations: [Unspecified nonsuppurative otitis media, right ear] 05-09-2024 Episodic Pulmonary heart disease (20 sources) Pulmonary hypertension; Translations: [Secondary pulmonary hypertension] Onset: 3 11-25-2022 Chronic Residual codes; unclassified (15 sources) Obstructive sleep apnea syndrome; Translations: [Obstructive sleep apnea (adult) (pediatric)] Onset: 3 05-05-2024 Chronic Screening and history of mental health and substance abuse codes (5 sources) Tobacco use and exposure - finding 11-25-2022 Chronic Spondylosis; intervertebral disc disorders; other back problems (15 sources) Lumbosacral spondylosis without myelopathy; Translations: [Spondylosis without myelopathy or radiculopathy, lumbosacral region] Onset: 2 05-05-2024 Chronic Thyroid disorders (20 sources) Hypothyroidism, unspecified; Translations: [Hypothyroidism] Onset: 2 11-25-2022 Chronic Unclassified (3 sources) CONTACT W/AND (SUSP) EXPOS COVID-19; Translations: [CONTACT W/AND (SUSP) EXPOS COVID-19] Onset: 2 Unclassified (1 source) COUGH, UNSPECIFIED; Translations: [COUGH, UNSPECIFIED] Onset: 2 Unclassified (5 sources) Long-term current use of aspirin 03-31-2024 Unclassified (1 source) Vertebrogenic low back pain; Translations: [Vertebrogenic low back pain] Onset: 4 Unclassified (2 sources) Other persistent atrial fibrillation; Translations: [Other persistent atrial fibrillation] Onset: 3 Past or Other Problems Problem Classification Problem Date Documented Date Episodic/Chronic Abdominal pain (17 sources) Lower abdominal pain; Translations: [Lower abdominal pain, unspecified] Onset: 01-30-2022 05-05-2024 Episodic Calculus of urinary tract (19 sources) Kidney stone; Translations: [Calculus of kidney] Onset: 03-31-2024 Episodic Cardiac dysrhythmias (20 sources) Palpitations; Translations: [Bradycardia] Onset: 01-14-2022 Episodic Conditions associated with dizziness or vertigo (15 sources) Lightheadedness; Translations: [Dizziness and giddiness] Onset: 07-27-2016 05-05-2024 Episodic Deficiency and other anemia (1 source) Anemia, unspecified; Translations: [ANEMIA UNSPECIFIED] Onset: 01-19-2022 Episodic E Codes: Cut/pierceb (1 source) Contact with other sharp object(s), not elsewhere classified, initial encounter; Translations: [[facility] OT SHRP OB NOT ELSW CLASS INI] Onset: 08-14-2021 Episodic Malaise and fatigue (15 sources) Fatigue; Translations: [Other fatigue] Onset: 07-27-2016 05-05-2024 Episodic Nonspecific chest pain (16 sources) Chest pain, unspecified; Translations: [Chest pain] Onset: 07-27-2016 05-05-2024 Episodic Open wounds of extremities (4 sources) Laceration without foreign body, right lower leg, initial encounter; Translations: [LACERATION W/O FB RT LOW LEG INIT] Onset: 08-12-2021 Episodic Other aftercare (1 source) Other rn long term care (current) drug therapy; Translations: [OT CARE HOME CURRENT DRUG THERAPY] Onset: 08-14-2021 Episodic Other aftercare (17 sources) Long-term current use of aspirin; Translations: [[facility] (current) use of aspirin] Onset: 03-31-2024 Episodic Other and unspecified benign neoplasm (1 source) Personal history of colonic polyps; Translations: [PERSONAL HISTORY OF COLONIC POLYPS] Onset: 08-14-2021 Episodic Other and unspecified benign neoplasm (19 sources) History of polyp of colon; Translations: [History of colon polyps] Onset: 05-09-2024 11-25-2022 Episodic Other circulatory disease (1 source) Other [...] Onset: 01-26-2022 Episodic Other lower respiratory disease (19 sources) Multiple nodules of lung; Translations: [Other nonspecific abnormal finding of lung field] Onset: 05-09-2024 11-25-2022 Episodic Other lower respiratory disease (15 sources) Dyspnea; Translations: [Dyspnea, unspecified] Onset: 07-27-2016 [...] UTERUS] Onset: 08-14-2021 Episodic Residual codes; unclassified (19 sources) History of operative procedure on lumbar spinal structure; Translations: [Other specified postprocedural states] Onset: 05-09-2024 03-20-2024 Episodic Residual codes; unclassified (15 sources) Edema; Translations: [Edema, unspecified] Onset: 07-27-2016 05-05-2024 Episodic Screening and history of mental health and substance abuse codes (20 sources) Personal history of nicotine dependence; Translations: [H/O: Disorder] Onset: 08-14-2021 Episodic Spondylosis; intervertebral disc disorders; [...] Test Name Value Interpretation Reference Range Facility Albumin [Mass/volume] in Ser um or Plasma by Bromocresol green (BCG) dye binding methoOrdered By: Lizette Schaffer on 09-22-2024 Albumin BCG dye [Mass/Vol] 3.8 g/dL 3.5-5.7 [facility] Appearance of UrineOrdered B y: Lizette Schaffer on 09-22-2024 Appearance (U) Cloudy Critically abnormal Clear [facility] Comment on above: Order Comment: Name Collection Type:: Clean-Voided Midstream Performed By: #### I FE SERUM, SPE W INTERPRET, KAPPA #### [facility] , #### FE and TIBC, MG, TAYLOR, RENAL, PTH, [id number], CBCNO, URIC #### [facility] [address] [place] [address] Bacteria [Presence] in Urine by AutomatedOrdered By: Lizette Schaffer on 09-22-2024 Bacteria Auto Ql (U) 1+ [HPF] High None Seen [facility] Bilirubin Test strip Ql (U)O rdered By: Lizette Schaffer on 09-22-2024 Bilirubin Ql (U) Negative Negative [facility] Calcium [Mass/volume] in Ser um or PlasmaOrdered By: Lizette Schaffer on 09-22-2024 Calcium [Mass/Vol] 8.9 mg/dL Normal 8.6-10.3 [facility] Comment on above: Performed By: #### I FE SERUM, SPE W INTERPRET, KAPPA #### [facility] , #### FE and TIBC, MG, TAYLOR, RENAL, PTH, [id number], CBCNO, URIC #### [place] [facility] [address] [place] [address] [place] Carbon dioxide, total [Moles /volume] in Serum or PlasmaOrdered By: Lizette Schaffer on 09-22-2024 CO2 [Moles/Vol] 24.4 mmol/L Normal 21.0-31.0 [facility] Comment on above: Performed By: #### I FE SERUM, SPE W INTERPRET, KAPPA #### [facility] , #### FE and TIBC, MG, TAYLOR, RENAL, PTH, [id number], CBCNO, URIC #### [facility] [address] [place] [address] [place] Chloride [Moles/volume] in S bridgette or PlasmaOrdered By: Lizette Schaffer on 09-22-2024 Chloride [Moles/Vol] 109 mmol/L High 98-107 [facility] Comment on above: Performed By: #### I FE SERUM, SPE W INTERPRET, KAPPA #### [facility] , #### FE and TIBC, MG, TAYLOR, RENAL, PTH, [id number], CBCNO, URIC #### [facility] [address] Color of Urine by AutoOrdere d By: Lizette Schaffer on 09-22-2024 Color (U) Yellow Normal Yellow [facility] Comment on above: Order Comment: Name Collection Type:: Clean-Voided Midstream Performed By: #### I FE SERUM, SPE W INTERPRET, KAPPA #### [facility] , #### FE and TIBC, MG, TAYLOR, RENAL, PTH, [id number], CBCNO, URIC #### [facility] [address] [place] [address] [place] Creatinine [Mass/volume] in Serum or PlasmaOrdered By: Lizette Schaffer on 09-22-2024 Creatinine [Mass/Vol] 2.25 mg/dL High 0.60-1.20 [facility] Comment on above: Performed By: #### I FE SERUM, SPE W INTERPRET, KAPPA #### [facility] , #### FE and TIBC, MG, TAYLOR, RENAL, PTH, [id number], CBCNO, URIC #### [facility] [address] Creatinine [Mass/volume] in UrineOrdered By: Lizette Schaffer on 09-22-2024 Creatinine (U) [Mass/Vol] 153.00 mg/dL [facility] Comment on above: No reference range e stablished Dipstick and Microscopicon 0 09-22-2024 Bacteria,Urine 1+ [HPF] Normal None Seen [facility] Comment on above: Order Comment: Name Collection Type:: Clean-Voided Midstream Performed By: #### I FE SERUM, SPE W INTERPRET, KAPPA #### [facility] , #### FE and TIBC, MG, TAYLOR, RENAL, PTH, [id number], CBCNO, URIC #### [facility] [address] [place] [address] Bilirubin,Urine Negative Normal Negative [facility] Comment on above: Order Comment: Name Collection Type:: Clean-Voided Midstream Performed By: #### I FE SERUM, SPE W INTERPRET, KAPPA #### [facility] , #### FE and TIBC, MG, TAYLOR, RENAL, PTH, [id number], CBCNO, URIC #### [facility] [address] [place] [address] Glucose Ql (U) Normal Normal Normal [facility] Comment on above: Order Comment: Name Collection Type:: Clean-Voided Midstream Performed By: #### I FE SERUM, SPE W INTERPRET, KAPPA #### [facility] , #### FE and TIBC, MG, TAYLOR, RENAL, PTH, [id number], CBCNO, URIC #### [facility] [address] [place] [address] Hyaline Casts,Urine 0-8 Normal 0-8 [facility] Comment on above: Order Comment: Name Collection Type:: Clean-Voided Midstream Performed By: #### I FE SERUM, SPE W INTERPRET, KAPPA #### [facility] , #### FE and TIBC, MG, TAYOLR, RENAL, PTH, [id number], CBCNO, URIC #### [address] Mucus,Urine Rare Normal [facility] Comment on above: Order Comment: Name Collection Type:: Clean-Voided Midstream Result Comment: PERF ORMED BY: [place] [address] PATHOLOGIST MOLASSES COLORING OPERATOR CASSIDY CASIANO M.D. Performed By: #### I FE SERUM, SPE W INTERPRET, KAPPA #### [facility] , #### FE and TIBC, MG, TAYLOR, RENAL, PTH, [id number], CBCNO, URIC #### [address] Nitrite,Urine Negative Normal Negative [facility] Comment on above: Order Comment: Name Collection Type:: Clean-Voided Midstream Performed By: #### I FE SERUM, SPE W INTERPRET, KAPPA #### [facility] , #### FE and TIBC, MG, TAYLOR, RENAL, PTH, [id number], CBCNO, URIC #### [address] Occult Blood,Urine Negative Normal Negative [facility] Comment on above: Order Comment: Name Collection Type:: Clean-Voided Midstream Performed By: #### I FE SERUM, SPE W INTERPRET, KAPPA #### [facility] , #### FE and TIBC, MG, TAYLOR, RENAL, PTH, [id number], CBCNO, URIC #### [address] Protein,Urine Negative Normal Negative [facility] Comment on above: Order Comment: Name Collection Type:: Clean-Voided Midstream Performed By: #### I FE SERUM, SPE W INTERPRET, KAPPA #### [facility] , #### FE and TIBC, MG, TAYLOR, RENAL, PTH, [id number], CBCNO, URIC #### [address] RBC,Urine 1-2 Normal 0-4 [facility] Comment on above: Order Comment: Name Collection Type:: Clean-Voided Midstream Performed By: #### I FE SERUM, SPE W INTERPRET, KAPPA #### [facility] , #### FE and TIBC, MG, TAYLOR, RENAL, PTH, [id number], CBCNO, URIC #### [address] Specificy [place],Urine 1.018 Normal 1.001-1.030 [facility] Comment on above: Order Comment: Name Collection Type:: Clean-Voided Midstream Performed By: #### I FE SERUM, SPE W INTERPRET, KAPPA #### [facility] , #### FE and TIBC, MG, TAYLOR, RENAL, PTH, [id number], CBCNO, URIC #### [address] Squamous Epithelial Cell,Urine 5-9 Normal 0-2 [facility] Comment on above: Order Comment: Name Collection Type:: Clean-Voided Midstream Performed By: #### I FE SERUM, SPE W INTERPRET, KAPPA #### [facility] , #### FE and TIBC, MG, TAYLOR, RENAL, PTH, [id number], CBCNO, URIC #### [address] Urobilinogen,Urine Normal Normal Normal [facility] Comment on above: Order Comment: Name Collection Type:: Clean-Voided Midstream Performed By: #### I FE SERUM, SPE W INTERPRET, KAPPA #### [facility] , #### FE and TIBC, MG, TAYLOR, RENAL, PTH, [id number], CBCNO, URIC #### [address] WBC,Urine 5-9 Normal 0-4 [facility] Comment on above: Order Comment: Name Collection Type:: Clean-Voided Midstream Performed By: #### I FE SERUM, SPE W INTERPRET, KAPPA #### [facility] , #### FE and TIBC, MG, TAYLOR, RENAL, PTH, [id number], CBCNO, URIC #### [facility] [address] Epithelial cells.squamous [# /area] in Urine sediment by Automated countOrdered By: Lizette Sarbjit on 09-22-2024 Epithelial cells.squamous Auto (Urine sed) [#/Area] 5-9 [HPF] High 0-2 [facility] Erythrocyte distribution wid th [Ratio] by Automated countOrdered By: Lizette Sarbjit on 09-22-2024 Erythrocyte distribution width (RBC) [Ratio] 15.0 % Normal 11.9-15.3 [facility] Comment on above: Performed By: #### I FE SERUM, SPE W INTERPRET, KAPPA #### [facility] , #### FE and TIBC, MG, TAYLOR, RENAL, PTH, [id number], CBCNO, URIC #### [facility] [address] [place] [address] Erythrocytes [#/area] in Uri ne sediment by Automated countOrdered By: Lizette Sarbjit on 09-22-2024 RBC Auto (Urine sed) [#/Area] 1-2 [HPF] 0-4 [facility] Erythrocytes [#/volume] in B lood by Automated countOrdered By: Lizette Sarbjit on 09-22-2024 RBC (Bld) [#/Vol] 4.26 10*6/uL Normal 3.60-5.00 [facility] Comment on above: Performed By: #### I FE SERUM, SPE W INTERPRET, KAPPA #### [facility] , #### FE and TIBC, MG, TAYLOR, RENAL, PTH, [id number], CBCNO, URIC #### [facility] [address] [place] [address] Ferritin [Mass/volume] in Se rum or PlasmaOrdered By: Lizette Sarbjit on 07-11-2025 Ferritin [Mass/Vol] 73.7 ng/mL Normal 11.0-306.8 [facility] Comment on above: Performed By: #### I FE SERUM, SPE W INTERPRET, KAPPA #### [facility] , #### FE and TIBC, MG, TAYLOR, RENAL, PTH, [id number], CBCNO, URIC #### [address] Free K+L LT Chains, Qn, Son 09-22-2024 Free [place] Light Chains, S 46.0 mg/L Normal 3.3-19.4 [facility] Comment on above: Performed By: #### I FE SERUM, SPE W INTERPRET, KAPPA #### [facility] , #### FE and TIBC, MG, TAYLOR, RENAL, PTH, [id number], CBCNO, URIC #### [address] Free [place] Light Chains, S 25.9 mg/L Normal 5.7-26.3 [facility] Comment on above: Performed By: #### I FE SERUM, SPE W INTERPRET, KAPPA #### [facility] , #### FE and TIBC, MG, TAYLOR, RENAL, PTH, [id number], CBCNO, URIC #### [address] [place]/Lambda Ratio, S 1.78 Normal 0.26-1.65 [facility] Comment on above: Result Comment: Perf ormed at: CB - [facility] [place] [address] [place], [place] [id number] Building Maintenance Superintendent: Jozef Medina PhD, Phone: [phone] PERFORMED BY: [place] [address] PATHOLOGIST MOLASSES COLORING OPERATOR CASSIDY CASIANO M.D. Performed By: #### I FE SERUM, SPE W INTERPRET, KAPPA #### [facility] , #### FE and TIBC, MG, TAYLOR, RENAL, PTH, [id number], CBCNO, URIC #### [facility] [address] Glucose [Mass/volume] in Ser um or PlasmaOrdered By: Lizette Schaffer on 09-22-2024 Glucose [Mass/Vol] 95 mg/dL Normal 70-100 [facility] Comment on above: ADA recommended refe rence rangeRandom Glucose Reference Range is dependent on time and content of last meal. Glucose of more than 200 mg/dL in a nonstressed, ambulatory subject supports the diagnosis of Diabetes Mellitus. Result Comment: [place] om Glucose Reference Range is dependent on time and content of last meal. Glucose of more than 200 mg/dL in a nonstressed, ambulatory subject supports the diagnosis of Diabetes Mellitus. ADA recommended reference range Performed By: #### I FE SERUM, SPE W INTERPRET, KAPPA #### [facility] , #### FE and TIBC, MG, TAYLOR, RENAL, PTH, [id number], CBCNO, URIC #### [facility] [address] [place] [address] [place] Glucose [Mass/volume] in Uri ne by Test stripOrdered By: Lizette Schaffer on 09-22-2024 Glucose Test strip (U) [Mass/Vol] Normal mg/dL Normal [facility] Hematocrit [Volume Fraction] of Blood by Automated countOrdered By: Lizette Schaffer on 09-22-2024 Hematocrit (Bld) [Volume fraction] 37.9 % Normal 34.0-46.4 [facility] Comment on above: Performed By: #### I FE SERUM, SPE W INTERPRET, KAPPA #### [facility] , #### FE and TIBC, MG, TAYLOR, RENAL, PTH, [id number], CBCNO, URIC #### [facility] [address] Hemoglobin Test strip Ql (U) Ordered By: Lizette Schaffer on 09-22-2024 Hemoglobin Ql (U) Negative Negative [facility] Hemoglobin [Mass/volume] in BloodOrdered By: Lizette Schaffer on 09-22-2024 Hemoglobin (Bld) [Mass/Vol] 12.3 g/dL Normal 11.8-15.4 [facility] Comment on above: Performed By: #### I FE SERUM, SPE W INTERPRET, KAPPA #### [facility] , #### FE and TIBC, MG, TAYLOR, RENAL, PTH, [id number], CBCNO, URIC #### [address] Hemogram CBC Without Diffon 09-22-2024 Mean Corpuscular HGB Conc 32.5 g/dL Normal 32.0-35.0 [facility] Comment on above: Performed By: #### I FE SERUM, SPE W INTERPRET, KAPPA #### [facility] , #### FE and TIBC, MG, TAYLOR, RENAL, PTH, [id number], CBCNO, URIC #### [address] White Blood Count 6.6 [CFU]/mL Normal 3.8-11.6 [facility] Comment on above: Performed By: #### I FE SERUM, SPE W INTERPRET, KAPPA #### [facility] , #### FE and TIBC, MG, TAYLOR, RENAL, PTH, [id number], CBCNO, URIC #### [address] Hyaline casts [#/area] in Ur ine sediment by Automated countOrdered By: Lizette Schaffer on 09-22-2024 Hyaline casts Auto (Urine sed) [#/Area] 0-8 [LPF] 0-8 [facility] Immunofixation for UrineOrde red By: Lizette Schaffer on 09-22-2024 Interpretation Immunofixation (U) [Interp] Comment: . [facility] Comment on above: Presence of monoclon al protein is unclear at this time. Suggestrepeat in 3 to 6 months if clinically indicated.Performed at: [facility] [id number] Director: Jozef Medina PhD, Phone: [phone] Immunofixation, (JOSE), Urine on 09-22-2024 Immunofixation, (JOSE), Urine Comment: Normal . [facility] Comment on above: Result Comment: Pres ence of monoclonal protein is unclear at this time. Suggest repeat in 3 to 6 months if clinically indicated. Performed at: - [facility] [id number] Building Maintenance Superintendent: Jozef Medina PhD, Phone: [phone] PERFORMED BY: [place] [address] PATHOLOGIST MOLASSES COLORING OPERATOR CASSIDY CASIANO M.D. Performed By: #### I FE SERUM, SPE W INTERPRET, KAPPA #### [facility] , #### FE and TIBC, MG, TAYLOR, RENAL, PTH, [id number], CBCNO, URIC #### [address] Immunofixation,Serumon 09-22 Immunofixation, Serum Comment Normal . [facility] Comment on above: Result Comment: No m onoclonality detected. Performed By: #### I FE SERUM, SPE W INTERPRET, KAPPA #### [facility] , #### FE and TIBC, MG, TAYLOR, RENAL, PTH, [id number], CBCNO, URIC #### [address] Immunoglobulin A, Serum 184 mg/dL Normal 64-422 [facility] Comment on above: Performed By: #### I FE SERUM, SPE W INTERPRET, KAPPA #### [facility] , #### FE and TIBC, MG, TAYLOR, RENAL, PTH, [id number], CBCNO, URIC #### [address] Immunoglobulin G 1018 mg/dL Normal 586-1602 [facility] Comment on above: Performed By: #### I FE SERUM, SPE W INTERPRET, KAPPA #### [facility] , #### FE and TIBC, MG, TAYLOR, RENAL, PTH, [id number], CBCNO, URIC #### [address] Immunoglobulin M, Serum 91 mg/dL Normal 26-217 [facility] Comment on above: Result Comment: Perf ormed at: - [facility] [address] [id number] Building Maintenance Superintendent: Jozef Medina PhD, Phone: [phone] Performed By: #### I FE SERUM, SPE W INTERPRET, KAPPA #### [facility] , #### FE and TIBC, MG, TAYLOR, RENAL, PTH, [id number], CBCNO, URIC #### [address] Iron [Mass/volume] in Serum or PlasmaOrdered By: Lizette Schaffer on 09-22-2024 Iron [Mass/Vol] 54 ug/dL Normal 50-212 [facility] Comment on above: Performed By: #### I FE SERUM, SPE W INTERPRET, KAPPA #### [facility] , #### FE and TIBC, MG, TAYLOR, RENAL, PTH, [id number], CBCNO, URIC #### [address] Iron and TIBC Profileon 09-12 % Iron Saturation 22.0 % Normal 20-50 [facility] Comment on above: Performed By: #### I FE SERUM, SPE W INTERPRET, KAPPA #### [facility] , #### FE and TIBC, MG, TAYLOR, RENAL, PTH, [id number], CBCNO, URIC #### [address] Total Iron Binding Capacity 245 ug/dL Low 255-450 [facility] Comment on above: Performed By: #### I FE SERUM, SPE W INTERPRET, KAPPA #### [facility] , #### FE and TIBC, MG, TAYLOR, RENAL, PTH, [id number], CBCNO, URIC #### [facility] [address] [place] [address] Ketones [Presence] in Urine by Test stripOrdered By: Lizette Schaffer on 09-22-2024 Ketones Ql (U) Negative Normal Negative [facility] Comment on above: Order Comment: Name Collection Type:: Clean-Voided Midstream Performed By: #### I FE SERUM, SPE W INTERPRET, KAPPA #### [facility] , #### FE and TIBC, MG, TAYLOR, RENAL, PTH, [id number], CBCNO, URIC #### [facility] [address] [place] [address] Leukocyte esterase [Presence ] in Urine by Test stripOrdered By: Lizette Schaffer on 09-22-2024 Leukocyte esterase Test strip Ql (U) 1+ Normal Negative [facility] Comment on above: Order Comment: Name Collection Type:: Clean-Voided Midstream Performed By: #### I FE SERUM, SPE W INTERPRET, KAPPA #### [facility] , #### FE and TIBC, MG, TAYLOR, RENAL, PTH, [id number], CBCNO, URIC #### [facility] [address] [place] [address] Leukocytes [#/area] in Urine sediment by Automated countOrdered By: Lizette Schaffer on 09-22-2024 WBC Auto (Urine sed) [#/Area] 5-9 [HPF] High 0-4 [facility] Leukocytes [#/volume] correc lani for nucleated erythrocytes in Blood by Automated counOrdered By: Lizette Schaffer on 09-22-2024 WBC corrected for nucl RBC Auto (Bld) [#/Vol] 6.6 10*3/uL 3.8-11.6 [facility] MCH [Entitic mass] by Automa lani countOrdered By: Lizette Schaffer on 09-22-2024 MCH (RBC) [Entitic mass] 28.9 pg Normal 24.7-34.3 [facility] Comment on above: Performed By: #### I FE SERUM, SPE W INTERPRET, KAPPA #### [facility] , #### FE and TIBC, MG, TAYLOR, RENAL, PTH, [id number], CBCNO, URIC #### [facility] [address] MCHC Auto (RBC) [Mass/Vol]Or dered By: Lizette Schaffer on 09-22-2024 MCHC (RBC) [Mass/Vol] 32.5 g/dL 32.0-35.0 [facility] MCV [Entitic volume] by Auto mated countOrdered By: Lizette Schaffer on 09-22-2024 MCV (RBC) [Entitic vol] 89.0 fL Normal 80-100 [facility] Comment on above: Performed By: #### I FE SERUM, SPE W INTERPRET, KAPPA #### [facility] , #### FE and TIBC, MG, TAYLOR, RENAL, PTH, [id number], CBCNO, URIC #### [address] Magnesium [Mass/volume] in S bridgette or PlasmaOrdered By: Lizette Schaffer on 09-22-2024 Magnesium [Mass/Vol] 1.7 mg/dL Low 1.9-2.7 [facility] Comment on above: Performed By: #### I FE SERUM, SPE W INTERPRET, KAPPA #### [facility] , #### FE and TIBC, MG, TAYLOR, RENAL, PTH, [id number], CBCNO, URIC #### [address] Mucus [Presence] in Urine by AutomatedOrdered By: Lizette Schaffer on 09-22-2024 Mucus Auto Ql (U) Rare [LPF] [facility] Nitrite Test strip Ql (U)Ord ered By: Lizette Schaffer on 09-22-2024 Nitrite Ql (U) Negative Negative [facility] No Panel InformationOrdered By: Lizette Schaffer on 09-22-2024 Protein Electrophoresis M-Benjy Not observed g/dL Not Observed [facility] Protein Electrophoresis Note Comment . [facility] Comment on above: Protein electrophore sis scan will follow via computer,mail, or welfare supervisor delivery.Performed at: [facility] [id number] [place], [place] [id number] Director: Jozef Medina PhD, Phone: [phone] Estimated GFR (CKD-EPI) 22.480 mL/Min [facility] Creatinine Clearance (Chem N/A [facility] Protein Electrophoresis Interpret Comment . [facility] Comment on above: Faint band in gamma region suspicious for monoclonalimmunoglobulin. This band may represent a benign spike asseen in older people or could be a paraprotein as seen inMultiple Myeloma, Waldenstrom's Macroglobulinemia orLymphoma. Depending on clinical circumstances, furtherdiagnostic studies may include serum immunofixation orserum free light chain quantitation.Performed at: [facility] [address] [id number] Director: Jozef Medina PhD, Phone: [phone] Parathyrin.intact [Mass/volu me] in Serum or PlasmaOrdered By: Lizette Schaffer on 09-22-2024 Parathyrin.intact [Mass/Vol] 68.7 pg/mL [facility] Parathyroid Hormone Intacton 09-22-2024 Parathyroid Hormone Intact 68.7 pg/mL Normal [facility] Comment on above: Result Comment: PERF ORMED BY: [place] [address] PATHOLOGIST MOLASSES COLORING OPERATOR CASSIDY CASIANO M.D. Performed By: #### I FE SERUM, SPE W INTERPRET, KAPPA #### [facility] , #### FE and TIBC, MG, TAYLOR, RENAL, PTH, [id number], CBCNO, URIC #### [facility] [address] Phosphate [Mass/volume] in S bridgette or PlasmaOrdered By: Lizette Schaffer on 09-22-2024 Phosphate [Mass/Vol] 3.6 mg/dL Normal 2.5-4.5 [facility] Comment on above: Performed By: #### I FE SERUM, SPE W INTERPRET, KAPPA #### [facility] , #### FE and TIBC, MG, TAYLOR, RENAL, PTH, [id number], CBCNO, URIC #### [facility] [address] [place] [address] Platelet mean volume [Entiti c volume] in Blood by Automated countOrdered By: Lizette Connerdir on 09-22-2024 Platelet mean volume (Bld) [Entitic vol] 8.1 fL Normal 6.3-10.7 [facility] Comment on above: Result Comment: PERF ORMED BY: [place] [address] PATHOLOGIST MOLASSES COLORING OPERATOR CASSIDY CASIANO M.D. Performed By: #### I FE SERUM, SPE W INTERPRET, KAPPA #### [facility] , #### FE and TIBC, MG, TAYLOR, RENAL, PTH, [id number], CBCNO, URIC #### [address] Platelets [#/volume] in Bloo d by Automated countOrdered By: Lizette Sarbjit on 09-22-2024 Platelets (Bld) [#/Vol] 212 10*3/uL Normal 150-450 [facility] Comment on above: Performed By: #### I FE SERUM, SPE W INTERPRET, KAPPA #### [facility] , #### FE and TIBC, MG, TAYLOR, RENAL, PTH, [id number], CBCNO, URIC #### [address] Potassium [Moles/volume] in Serum or PlasmaOrdered By: Lizette Sarbjit on 09-22-2024 Potassium [Moles/Vol] 5.7 mmol/L High 3.5-5.1 [facility] Comment on above: Performed By: #### I FE SERUM, SPE W INTERPRET, KAPPA #### [facility] , #### FE and TIBC, MG, TALYOR, RENAL, PTH, [id number], CBCNO, URIC #### [address] Prot Electrophoresis w/Inter raul 09-22-2024 Albumin [Mass/Vol] 3.2 g/dL Normal 2.9-4.4 [facility] Comment on above: Performed By: #### I FE SERUM, SPE W INTERPRET, KAPPA #### [facility] , #### FE and TIBC, MG, TAYLOR, RENAL, PTH, [id number], CBCNO, URIC #### [address] Albumin/Globulin [Mass ratio] 1.1 {ratio} Normal 0.7-1.7 [facility] Comment on above: Performed By: #### I FE SERUM, SPE W INTERPRET, KAPPA #### [facility] , #### FE and TIBC, MG, TAYLOR, RENAL, PTH, [id number], CBCNO, URIC #### [address] Kvqon-6-Exqagbcb 0.3 g/dL Normal 0.0-0.4 [facility] Comment on above: Performed By: #### I FE SERUM, SPE W INTERPRET, KAPPA #### [facility] , #### FE and TIBC, MG, TAYLOR, RENAL, PTH, [id number], CBCNO, URIC #### [address] Zuvfd-9-Tszrycmu 0.8 g/dL Normal 0.4-1.0 [facility] Comment on above: Performed By: #### I FE SERUM, SPE W INTERPRET, KAPPA #### [facility] , #### FE and TIBC, MG, TAYLOR, RENAL, PTH, [id number], CBCNO, URIC #### [facility] [address] [place] [address] Beta Globulin 0.9 g/dL Normal 0.7-1.3 [facility] Comment on above: Performed By: #### I FE SERUM, SPE W INTERPRET, KAPPA #### [facility] , #### FE and TIBC, MG, TAYLOR, RENAL, PTH, [id number], CBCNO, URIC #### [address] Gamma Globulin 0.9 g/dL Normal 0.4-1.8 [facility] Comment on above: Performed By: #### I FE SERUM, SPE W INTERPRET, KAPPA #### [facility] , #### FE and TIBC, MG, TAYLOR, RENAL, PTH, [id number], CBCNO, URIC #### [address] Globulin (S) [Mass/Vol] 2.9 g/dL Normal 2.2-3.9 [facility] Comment on above: Performed By: #### I FE SERUM, SPE W INTERPRET, KAPPA #### [facility] , #### FE and TIBC, MG, TAYLOR, RENAL, PTH, [id number], CBCNO, URIC #### [address] M-Benjy Comment: Normal Not Observed [facility] Comment on above: Result Comment: SPE shows an asymmetrical gamma. Performed By: #### I FE SERUM, SPE W INTERPRET, KAPPA #### [facility] , #### FE and TIBC, MG, TAYLOR, RENAL, PTH, [id number], CBCNO, URIC #### [address] Protein [Mass/Vol] 6.1 g/dL Normal 6.0-8.5 [facility] Comment on above: Performed By: #### I FE SERUM, SPE W INTERPRET, KAPPA #### [facility] , #### FE and TIBC, MG, TAYLOR, RENAL, PTH, [id number], CBCNO, URIC #### [address] SPE-Interpretation Comment Normal . [facility] Comment on above: Result Comment: Madhu t band in gamma region suspicious for monoclonal immunoglobulin. This band may represent a benign spike as seen in older people or could be a paraprotein as seen in Multiple Myeloma, Waldenstrom's Macroglobulinemia or Lymphoma. Depending on clinical circumstances, further diagnostic studies may include serum immunofixation or serum free light chain quantitation. Performed at: [address] [id number] Building Maintenance Superintendent: Jozef Medina PhD, Phone: [phone] Performed By: #### I FE SERUM, SPE W INTERPRET, KAPPA #### [facility] , #### FE and TIBC, MG, TAYLOR, RENAL, PTH, [id number], CBCNO, URIC #### [address] SPE-Note Comment Normal . [facility] Comment on above: Result Comment: Prot ein electrophoresis scan will follow via computer, mail, or welfare supervisor delivery. Performed By: #### I FE SERUM, SPE W INTERPRET, KAPPA #### [facility] , #### FE and TIBC, MG, TAYLOR, RENAL, PTH, [id number], CBCNO, URIC #### [address] Protein Creat Ratio Ur Rando mon 09-22-2024 Creatinine, Urine (Random) 153.00 mg/dL Normal [facility] Comment on above: Result Comment: No r eference range established Performed By: #### I FE SERUM, SPE W INTERPRET, KAPPA #### [facility] , #### FE and TIBC, MG, TAYLOR, RENAL, PTH, [id number], CBCNO, URIC #### [address] Urine Protein/Creatinine Ratio 105 mg/g{Cre} Normal 0-200 [facility] Comment on above: Result Comment: PERF ORMED BY: [place] [address] PATHOLOGIST MOLASSES COLORING OPERATOR CASSIDY CASIANO M.D. Performed By: #### I FE SERUM, SPE W INTERPRET, KAPPA #### [facility] , #### FE and TIBC, MG, TAYLOR, RENAL, PTH, [id number], CBCNO, URIC #### [facility] [address] [place] [address] Protein Electrophoresis, Ser umon 09-22-2024 Qofbb-9-Leabipyf 0.3 g/dL Normal 0.0-0.4 [facility] Comment on above: Performed By: #### I FE SERUM, SPE W INTERPRET, KAPPA #### [facility] , #### FE and TIBC, MG, TAYLOR, RENAL, PTH, [id number], CBCNO, URIC #### [address] Rarhw-4-Yxncgacs 0.8 g/dL Normal 0.4-1.0 [facility] Comment on above: Performed By: #### I FE SERUM, SPE W INTERPRET, KAPPA #### [facility] , #### FE and TIBC, MG, TAYLOR, RENAL, PTH, [id number], CBCNO, URIC #### [address] Beta Globulin 0.9 g/dL Normal 0.7-1.3 [facility] Comment on above: Performed By: #### I FE SERUM, SPE W INTERPRET, KAPPA #### [facility] , #### FE and TIBC, MG, TAYLOR, RENAL, PTH, [id number], CBCNO, URIC #### [facility] [address] [place] [address] Gamma Globulin 0.9 g/dL Normal 0.4-1.8 [facility] Comment on above: Performed By: #### I FE SERUM, SPE W INTERPRET, KAPPA #### [facility] , #### FE and TIBC, MG, TAYLOR, RENAL, PTH, [id number], CBCNO, URIC #### [address] M-Benjy Not Observed Normal Not Observed [facility] Comment on above: Performed By: #### I FE SERUM, SPE W INTERPRET, KAPPA #### [facility] , #### FE and TIBC, MG, TAYLOR, RENAL, PTH, [id number], CBCNO, URIC #### [address] SPE-Note Comment Normal . [facility] Comment on above: Result Comment: Prot ein electrophoresis scan will follow via computer, mail, or welfare supervisor delivery. Performed at: [facility] [address] [id number] Building Maintenance Superintendent: Jozef Medina PhD, Phone: [phone] PERFORMED BY: [place] [address] PATHOLOGIST MOLASSES COLORING OPERATOR CASSIDY CASIANO M.D. Performed By: #### I FE SERUM, SPE W INTERPRET, KAPPA #### [facility] , #### FE and TIBC, MG, TAYLOR, RENAL, PTH, [id number], CBCNO, URIC #### [address] Protein Test strip (U) [Mass /Vol]Ordered By: Lizette Sarbjit on 09-22-2024 Protein (U) [Mass/Vol] Negative Negative [facility] Protein [Mass/volume] in Uri neOrdered By: Lizette Sarbjit on 09-22-2024 Protein (U) [Mass/Vol] 16 mg/dL High 0-9 [facility] Comment on above: Performed By: #### I FE SERUM, SPE W INTERPRET, KAPPA #### [facility] , #### FE and TIBC, MG, TAYLOR, RENAL, PTH, [id number], CBCNO, URIC #### [facility] [address] [place] [address] Renal Function Panelon 09-22 Albumin [Mass/Vol] 3.8 g/dL Normal 3.5-5.7 [facility] Comment on above: Performed By: #### I FE SERUM, SPE W INTERPRET, KAPPA #### [facility] , #### FE and TIBC, MG, TAYLOR, RENAL, PTH, [id number], CBCNO, URIC #### [facility] [address] GFR/1.73 sq M.predicted MDRD (S/P/Bld) [Vol rate/Area] 22.480 mL/min/{1.73_m2} Normal [facility] Comment on above: Performed By: #### I FE SERUM, SPE W INTERPRET, KAPPA #### [facility] , #### FE and TIBC, MG, TAYLOR, RENAL, PTH, [id number], CBCNO, URIC #### [facility] [address] Serum free kappa light chain measurementOrdered By: Lizette Schaffer on 09-22-2024 Immunoglobulin light chains.kappa.free (S) [Mass/Vol] 46.0 mg/L High 3.3-19.4 [facility] Serum globulin measurement ( mass/volume)Ordered By: Lizette Schaffer on 09-22-2024 Globulin (S) [Mass/Vol] 2.8 g/dL Normal 2.2-3.9 [facility] Comment on above: Performed By: #### I FE SERUM, SPE W INTERPRET, KAPPA #### [facility] , #### FE and TIBC, MG, TAYLOR, RENAL, PTH, [id number], CBCNO, URIC #### [facility] [address] Serum immunoglobulin free ka ppa light chains/immunoglobulin free lambda light chainsOrdered By: Lizette Schaffer on 09-22-2024 Immunoglobulin light chains.kappa.free/Immun oglobulin light chains.lambda.free (S) [Mass ratio] 1.78 High 0.26-1.65 [facility] Comment on above: Performed at: [facility] [address] [id number] Director: Jozef Medina PhD, Phone: [phone] Serum or plasma IgA measurem ent (mass/volume)Ordered By: Lizette Schaffer on 09-22-2024 IgA [Mass/Vol] 184 mg/dL 64-422 [facility] Serum or plasma IgG measurem ent (mass/volume)Ordered By: Lizette Sarbjit on 09-22-2024 IgG [Mass/Vol] 1018 mg/dL [phone] [facility] Serum or plasma IgM measurem ent (mass/volume)Ordered By: Lizette Schaffer on 09-22-2024 IgM [Mass/Vol] 91 mg/dL 26-217 [facility] Comment on above: Performed at: [place] [id number] Director: Jozef Medina PhD, Phone: [phone] Serum or plasma albumin magen urement (mass/volume)Ordered By: Lizette Schaffer on 09-22-2024 Albumin [Mass/Vol] 3.2 g/dL Normal 2.9-4.4 [facility] Comment on above: Performed By: #### I FE SERUM, SPE W INTERPRET, KAPPA #### [facility] , #### FE and TIBC, MG, TAYLOR, RENAL, PTH, [id number], CBCNO, URIC #### [facility] [address] Serum or plasma albumin/glob ulin mass ratioOrdered By: Lizette Schaffer on 09-22-2024 Albumin/Globulin [Mass ratio] 1.1 {ratio} Normal 0.7-1.7 [facility] Comment on above: Performed By: #### I FE SERUM, SPE W INTERPRET, KAPPA #### [facility] , #### FE and TIBC, MG, TAYLOR, RENAL, PTH, [id number], CBCNO, URIC #### [facility] [address] Serum or plasma alpha 1 glob ulin measurement by electrophoresis (mass/volume)Ordered By: Lizette Schaffer on 09-22-2024 Alpha 1 globulin Elph [Mass/Vol] 0.3 g/dL 0.0-0.4 [facility] Serum or plasma alpha 2 glob ulin measurement by electrophoresis (mass/volume)Ordered By: Lizette Schaffer on 09-22-2024 Alpha 2 globulin Elph [Mass/Vol] 0.8 g/dL 0.4-1.0 [facility] Serum or plasma anion gap de terminationOrdered By: Lizette Schaffer on 09-22-2024 Anion gap [Moles/Vol] 10.3 mmol/L Normal 6.0-15.0 [facility] Comment on above: Performed By: #### I FE SERUM, SPE W INTERPRET, KAPPA #### [facility] , #### FE and TIBC, MG, TAYLOR, RENAL, PTH, [id number], CBCNO, URIC #### [facility] [address] Serum or plasma beta globuli n measurement by electrophoresis (mass/volume)Ordered By: Lizette Schaffer on 09-22-2024 Beta globulin Elph [Mass/Vol] 0.9 g/dL 0.7-1.3 [facility] Serum or plasma gamma globul in measurement by electrophoresis (mass/volume)Ordered By: Lizette Schaffer on 09-22-2024 Gamma globulin Elph [Mass/Vol] 0.9 g/dL 0.4-1.8 [facility] Serum or plasma immunoglobul in free lambda light chains measurement (mass/volume)Ordered By: Lizette Schaffer on 09-22-2024 Immunoglobulin light chains.lambda.free [Mass/Vol] 25.9 mg/L 5.7-26.3 [facility] Serum or plasma iron binding capacity measurement (mass/volume)Ordered By: Lizette Schaffer on 09-22-2024 Iron binding capacity [Mass/Vol] 245 ug/dL Low 255-450 [facility] Serum or plasma iron saturat ion measurement (mass fraction)Ordered By: Lizette Schaffer on 09-22-2024 Iron saturation [Mass fraction] 22.0 % 20-50 [facility] Serum total protein measurem entOrdered By: Lizette Schaffer on 09-22-2024 Protein [Mass/Vol] 6.0 g/dL Normal 6.0-8.5 [facility] Comment on above: Performed By: #### I FE SERUM, SPE W INTERPRET, KAPPA #### [facility] , #### FE and TIBC, MG, TAYLOR, RENAL, PTH, [id number], CBCNO, URIC #### [facility] [address] [place] [id number] [place] Sodium [Moles/volume] in Ser um or PlasmaOrdered By: Lizette Sarbjit on 09-22-2024 Sodium [Moles/Vol] 138 mmol/L Normal 136-145 [facility] Comment on above: Performed By: #### I FE SERUM, SPE W INTERPRET, KAPPA #### [facility] , #### FE and TIBC, MG, TAYLOR, RENAL, PTH, [id number], CBCNO, URIC #### [place] [id number] [facility] Specific gravity Test strip (U) [Rel density]Ordered By: Lizette Sarbjit on 09-22-2024 Specific gravity (U) [Rel density] 1.018 1.001-1.030 [facility] Transferrin [Mass/volume] in Serum or PlasmaOrdered By: Lizette Sarbjit on 09-22-2024 Transferrin [Mass/Vol] 175 mg/dL Low 203-362 [facility] Comment on above: Performed By: #### I FE SERUM, SPE W INTERPRET, KAPPA #### [facility] , #### FE and TIBC, MG, TAYLOR, RENAL, PTH, [id number], CBCNO, URIC #### [place] [id number] [place] Urate [Mass/volume] in Serum or PlasmaOrdered By: Lizette Sarbjit on 09-22-2024 Urate [Mass/Vol] 7.9 mg/dL High 2.3-6.6 [facility] Comment on above: Performed By: #### I FE SERUM, SPE W INTERPRET, KAPPA #### [facility] , #### FE and TIBC, MG, TAYLOR, RENAL, PTH, [id number], CBCNO, URIC #### [facility] [address] [place] [address] Urea nitrogen [Mass/volume] in Serum or PlasmaOrdered By: Lizette Sarbjit on 09-22-2024 Urea nitrogen [Mass/Vol] 40 mg/dL High 7-25 [facility] Comment on above: Performed By: #### I FE SERUM, SPE W INTERPRET, KAPPA #### [facility] , #### FE and TIBC, MG, TAYLOR, RENAL, PTH, [id number], CBCNO, URIC #### [facility] [address] [place] [address] Urine Cultureon 09-22-2024 Bacteria identified Cx Nom (U) <9,000 colonies/ml mixed bacterial skin contaminants 2 Days PERFORMED BY: [place] [address] PATHOLOGIST MOLASSES COLORING OPERATOR CASSIDY Pate [facility] Comment on above: Performed By: #### I FE SERUM, SPE W INTERPRET, KAPPA #### [facility] , #### FE and TIBC, MG, TAYLOR, RENAL, PTH, [id number], CBCNO, URIC #### [facility] [address] [place] [address] Urine cultureOrdered By: Abd ul Sarbjit on 09-22-2024 Bacteria identified Cx Nom (U) 2 Days [facility] Urine protein/creatinine rat ioOrdered By: Lizette Sarbjit on 09-22-2024 Protein/Creatinine (U) [Ratio] 105 mg/g{Cre} 0-200 [facility] Urobilinogen Test strip (U) [Mass/Vol]Ordered By: Lizette Sarbjit on 09-22-2024 Urobilinogen (U) [Mass/Vol] Normal mg/dL Normal [facility] Vitamin D 25 Hydroxy Totalon 09-22-2024 Vitamin D 25 Hydroxy Total 29.7 ng/mL Low 30-100 [facility] Comment on above: Result Comment: GABRIELA MIN D STATUS 25(OH)VITAMIN D RANGE (ng/mL) Deficient <20 Insufficient 20 to <30 Sufficient 30 to 100 Reference: Jessica Rocha, Elizabeth LAMBERT, et al. Evaluation,treatment, and prevention of vitamin D deficiency; an Endocrine Society clinical practice guideline. JCEM. 2010; 96(7):1911-30. PERFORMED BY: [place] [address] PATHOLOGIST MOLASSES COLORING OPERATOR CASSIDY CASIANO M.D. Performed By: #### I FE SERUM, SPE W INTERPRET, KAPPA #### [facility] , #### FE and TIBC, MG, TAYLOR, RENAL, PTH, [id number], CBCNO, URIC #### [facility] [address] [place] [address] Vitamin D+Metabolites [Mass/ volume] in Serum or PlasmaOrdered By: Lizette Schaffer on 09-22-2024 Vitamin D+Metabolites [Mass/Vol] 29.7 ng/mL Low 30-100 [facility] Comment on above: VITAMIN D STATUS 25( [place])VITAMIN D RANGE (ng/mL) Deficient <20 Insufficient 20 to <30Sufficient 30 to 100Reference: Jo FITZPATRICK,Jessica PENA, Elizabeth LAMBERT, et al. Evaluation,treatment, and prevention of vitamin D deficiency; an Endocrine Society clinical practice guideline. JCEM. 2010; 96(7):1911-30. pH of Urine by Test stripOrd ered By: Lizette Schaffer on 09-22-2024 pH (U) 5.0 [pH] Normal 5.0-9.0 [facility] Comment on above: Order Comment: Name Collection Type:: Clean-Voided Midstream Performed By: #### I FE SERUM, SPE W INTERPRET, KAPPA #### [facility] , #### FE and TIBC, MG, TAYLOR, RENAL, PTH, [id number], CBCNO, URIC #### [facility] [address] [place] [address] Ambulatory Visit Summaryon 0 08-21-2024 Ambulatory Visit Summary Ambulatory Visit Summary KARINA VERO :1950 Visit Date:08/21/2024 Ambulatory Visit Instructions Your Diagnosis Intrinsic sphincter deficiency (ISD) Stress incontinence Urge incontinence Kidney stones Former smoker Aspirin long-term use Your Care Team Attending Physician - ROSETTA MENDEZ MD Primary Care Physician - Debbie Bhatia MD This Is [...] Appointments Wednesday 11:00 AM EST With: ROSETTA MENDEZ MD Where: [facility] [address], [address] [place] [address]- You Need to Schedule the Following Appointments Follow Up with ROSETTA MENDEZ MD, SASKIA When: Where: Medications What How Much When [...] Urinary incontinence refers to a condition in w (more content not included)... Normal [facility] Urology Office/Clinic Noteon 08-21-2024 Urology Office/Clinic Note Urology Office/Clinic Note Chief Complaint f/u to bulkamid HPI Staff 74 year old female here for F/U to Bulkamid with PVR Previous DX: stress incontinence, kidney stones, former smoker and aspirin long-term use Bulkamid 07/13/24 pt denies any UTI [...] with voice recognition artificial intelligence software, specifically [employer], [employer] and or [employer]. Substitutions may have occurred due to the [...] or stones. 6. Aspirin long-term use (Z79.82: [facility] (current) use of aspirin) ASA. No BTs. Has pacemaker. Hx of [place] but was asx, not sure when it [...] Information BRYAN BELTRÁN, ROSETTA, SASKIA Additional Instructions: 6 mos Patient Education Urinary Incontinence I, Federica Luna, personally scribed for Dr. Desai on 08/21/2024 11:06:37. . Documentation recorded by the scriblazaro, Federica Luna, accurately reflects the services(s) I performed and decisions made by me. Authenticated by Dr. Mendez on 08/21/2024 11:13:33. Problem List/Past Medical History [...] female Urge incontinence Historical No qualifying data Pr (more content not included)... Normal [facility] Comment on above: Result Comment: Elec tronically Signed By: BRYAN BELTRÁN, ROSETTA\.br\Date and Time Signed: 08/21/24 11:14 EDT\.br\Electronically Co-Signed By: Federica Luna\.br\Date and Time Co-Signed: 08/21/24 11:[address] Posterior fossa WO contra gita 08-15-2024 [place] [address] CT Scan Report Signed Patient: VERO SADLER MR#: [id number] : 1950 Acct:[id number] Age/Sex: 74 / F ADM Date: 08/15/24 Loc: CT Attending Dr: John Mathews M.D. Ordering Physician: John Mathews M.D. Date of Service: 08/15/24 Procedure(s): CT int auditory canals w/o con Accession Number(s): [id number] cc: Debbie Bhatia M.D. [address] [address] Patient Name: VERO SADLER MRN: [id number] date: 1950 Sex: F Assigned Patient Location: CT Current Patient Location: CT Accession/Order Number: [id number] Exam Date: 08/15/2024 14:47 Report Date: 08/15/2024 14:51 At the request of: JOHN MATHEWS MD Procedure: CT int auditory canals [...] Gutierrez M.D. 08/15/2024 2:51 PM Dictation Location: [place] [address] Electronically authenticated by: [id number] Y Date: 08/15/2024 14:51 Dictated By: Victor Manuel Gutierrez M.D. Signed By: 08/15/24 1454 DD/ 1451 TD/TT: Cardiac Monitor: [facility] Radiology, Radiologi MD sim - 08/15/2024 [place] [address] CT Scan Report Signed Patient: VERO SADLER MR#: [id number] : 1950 Acct:[id number] Age/Sex: 74 / F ADM Date: 08/15/24 Loc: CT Attending Dr: John Mathews M.D. Ordering Physician: John Mathews M.D. Date of Service: 08/15/24 Procedure(s): CT int auditory canals w/o con Accession Number(s): [id number] cc: Debbie Bhatia M.D. [place] [id number] Patient Name: VERO SADLER MRN: [facility]:[id number] date: 1950 Sex: F Assigned Patient Location: CT Current Patient Location: CT Accession/Order Number: [id number] Exam Date: 08/15/2024 14:47 Report Date: 08/15/2024 14:51 At the request of: JOHN MATHEWS MD Procedure: CT int auditory canals [...] Gutierrez M.D. 08/15/2024 2:51 PM Dictation Location: [place] [address] Electronically authenticated by: [id number] Y Date: 08/15/2024 14:51 Dictated By: Victor Manuel Gutierrez M.D. Signed By: 08/15/24 1454 DD/ 1451 TD/TT: Cardiac Monitor: [facility] [place] Radiology Study observation (narrative) [facility] CT Posterior fossa WO contra stOrdered By: Radiologist Radiology on 08-15-2024 [facility] [place] Work Phone: Orders Onlyon 08-11-2024 Orders Only [id number] Brian Sadler se 1950 F Date Provider Department Center 08/11/2024 MichelleOLLIE SNOWDEN [facility] Family History Problem Relation Age of Onset Other Mother Coronary artery disease Mother Other Mother Other Mother Other Father Hypertension Father Hyperlipidemia Father Other Daughter Family Status - Relation Status Age at Mother Father Daughter Normal [facility] Orders Only [id number] Brian Sadler se 1950 F Date Provider Department Center 08/11/2024 JOSEY ARNOLD [facility] Family History Problem Relation Age of Onset Other Mother Coronary artery disease Mother Other Mother Other Mother Other Father Hypertension Father Hyperlipidemia Father Other Daughter Family Status - Relation Status Age at Mother Father Daughter Normal [facility] No Panel InformationOrdered By: Kal Molina on 07-19-2024 Miscellaneous Pathology Test See comment [facility] Comment on above: See report. Scanned copy available in EMR. Pathology Request for Lab Co rpon 07-19-2024 Pathology Request for Lab [place] Normal [facility] Comment on above: Order Comment: GI SP ECIMEN Result Comment: See report. Scanned copy available in EMR. PERFORMED BY: [place] [address] PATHOLOGIST MOLASSES COLORING OPERATOR GENE BARRAGAN M.D. Performed By: #### I FE SERUM, SPE W INTERPRET, KAPPA #### [facility] , #### FE and TIBC, MG, TAYLOR, RENAL, PTH, [id number], CBCNO, URIC #### [address] Main OR Intraoperative Recor don 07-14-2024 Main OR Intraoperative Record Main OR Intraoperative Record IntraOp Document Type FT Summary Primary Physician: ROSETTA MENDEZ MD Finalized Date/Time: 07/14/24 10:37:22 Pt. Name: VERO SADLER/Sex: 1950 Female Med Rec #: [id number] Physician: ROSETTA MENDEZ MD Financial #: [id number] Pt. Type: A Room/Bed: [facility]8/ Admit/Disch: 07/13/24 07:02:16 - 07/13/24 11:00:00 Institution: Case Times FT Entry 1 Patient Times In Room 07/13/24 08:50:00 Out Room 07/13/24 09:14:00 Procedure Times Start 07/13/24 09:02:00 Stop 07/13/24 09:07:00 Anesthesia Times Start 07/13/24 08:50:00 Stop 07/13/24 09:14:00 Last Modified By: Andrew Holly Ii 07/13/24 09:17:16 Case Attendance FT Entry 1 Entry 2 Entry 3 Case Attendee Guillermina JUDGE, Tunde MENDEZ MD, Camilla Goldman Role Performed Anesthesiologist Surgeon - Primary Scrub - Primary Gas Flow Regulator Time In 07/13/24 08:50:00 07/13/24 08:50:00 07/13/24 08:50:00 Time Out 07/13/24 09:14:00 07/13/24 09:14:00 07/13/24 09:14:00 Procedure BULKAMID PROCEDURE(.) BULKAMID PROCEDURE(.) BULKAMID PROCEDURE(.) Comments 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 Normal [facility] Discharge Instructionson Discharge Instructions Discharge Instruc [...] 12 hours Duration: 5 Days Pickup at [facility]/pharmacy #6177 New phenazopyridine (Pyridium 100 mg Tab) 1 Tablets By Mouth 3 times a day Duration: 3 Days Pickup at [facility]/pharmacy #6177 Unchanged albuterol (Albuterol (Eqv-ProAir HFA)) [...] Mouth 2 times a day Pharmacy Information [facility]/pharmacy #[id number]: [address], [place] [phone] Allergies Adhesive Bandage (Hives) Education Materials Common [...] signed up for this yet, please contact [employer] at [phone] to get signed up today. Patient Name: VERO SADLER I have received this information and my questions have been answered. Patient/Wire Preparation Worker Name: Patient/Wire Preparation Worker Signature: Relationship to Patient: Witness Name/Signature: Date: _ (more content not included)... [facility] Comment on above: Result Comment: Elec tronically Signed By: Virgie BRODY, Patricia Szymanski\Date and Time Signed: 07/13/24 10:41 EDT Main OR PACU I Recordon 05 Main OR PACU I Record Main OR PACU I Rec ord PACU Phase I Document Type FT Summary Primary Physician: ROSETTA MENDEZ MD Finalized Date/Time: 07/13/24 09:53:55 Pt. Name: VERO SADLER Tri/Sex: 1950 Female Med Rec #: [id number] Physician: ROSETTA MENDEZ MD Financial #: [id number] Pt. Type: A Room/Bed: [place] [address] Admit/Disch: 07/13/24 07:02:16 - Institution: Case Times [...] By: Orin Richmond RN 07/13/24 09:53 Normal [facility] Main OR PACU II Recordon Main OR PACU II Record Main OR PACU II R ecord PACU Phase II Document Type FT Summary Primary Physician: ROSETTA MENDEZ MD Finalized Date/Time: 07/13/24 15:25:20 Pt. Name: KARINA VEROLazaro Yi./Sex: 1950 Female Med Rec #: [id number] Physician: ROSETTA MENDEZ MD Financial #: [id number] Pt. Type: A Room/Bed: [place] [address] Admit/Disch: 07/13/24 07:02:16 - 07/13/24 11:00:00 Institution: [...] Signed By: Patricia Garvin RN 07/13/24 15:25 Normal [facility] Main OR Preoperative Recordo n 07-13-2024 Main OR Preoperative Record Main OR Preoperative Record PreOp Document Type FT Summary Primary Physician: ROSETTA MENDEZ MD Finalized Date/Time: 07/13/24 09:04:45 Pt. Name: VERO SADLER Tri/Sex: 1950 Female Med Rec #: [id number] Physician: ROSETTA MENDEZ MD Financial #: [id number] Pt. Type: A Room/Bed: [facility] Admit/Disch: 07/13/24 07:02:16 - Institution: Case [...] By: Andrew Holly Ii 07/13/24 09:04 Normal [facility] Operative Reporton 5 Operative Report Operative Report Patient: VERO SADLER Age: 74 years Sex: Female : 1950 Associated Diagnoses: None Author: ROSETTA MENDEZ MD Procedure SURGEON: Rosetta Mendez MD PREOPERATIVE DIAGNOSIS: Stress urinary incontinence with , intrinsic sphincter deficiency POSTOPERATIVE DIAGNOSIS: Same PROCEDURE: Cystoscopy, injection of urethral bulking agent CPT 39035 FINDINGS: Urethra injected at 4 units packed [...] extend into the bladder until the 2cm victor manuel on the needle is visible. The Bulkamid [...] WEEKS. Needs to void before dc Normal [facility] Comment on above: Result Comment: Elec tronically Signed By: BRYAN BELTRÁN, ROSETTA\.br\Date and Time Signed: 07/13/24 10:17 EDT BMPon 06-26-2024 Anion gap [Moles/Vol] 11 mmol/L Normal 6-16 [facility] Comment on above: Performed By: #### 2 [id number] #### [facility] [address] [place] [address] Calcium [Mass/Vol] 9.1 mg/dL Normal 8.9-11.1 [facility] Comment on above: Performed By: #### 2 [id number] #### [facility] [address] [place] [address] Chloride [Moles/Vol] 107 mmol/L Normal 101-111 [facility] Comment on above: Performed By: #### 2 [id number] #### [facility] [address] [place] [address] CO2 [Moles/Vol] 26 mmol/L Normal 21-31 [facility] Comment on above: Performed By: #### 2 [id number] #### [facility] [address] [place] [address] Creatinine [Mass/Vol] 1.6 mg/dL High 0.5-1.3 [facility] Comment on above: Performed By: #### 2 [id number] #### [facility] [address] [place] [address] Glucose [Mass/Vol] 91 mg/dL Normal 55-199 [facility] Comment on above: Performed By: #### 2 [id number] #### [facility] [address] [place] [address] Potassium [Moles/Vol] 4.7 mmol/L Normal 3.5-5.3 [facility] Comment on above: Performed By: #### 2 [id number] #### [facility] [address] [place] [address] Sodium [Moles/Vol] 139 mmol/L Normal 135-145 [facility] Comment on above: Performed By: #### 2 [id number] #### [facility] [address] [place] [address] Urea nitrogen [Mass/Vol] 24 mg/dL High 5-21 [facility] Comment on above: Performed By: #### 2 [id number] #### [facility] [address] [place] [address] Urea nitrogen/Creatinine [Mass ratio] 15 No Units Normal 10-20 [facility] Comment on above: Performed By: #### 2 [id number] #### [facility] [address] [place] [address] CBC w/ Auto Diffon 5 Basophils/100 WBC (Bld) 1.2 % Normal 0.0-2.0 F [facility] Comment on above: Performed By: #### 2 [id number] #### [facility] [address] [place] [address] Basophils/Leukocytes Auto (Bld) [Pure # fraction] 0.1 E9/L Normal 0.0-0.2 [facility] Comment on above: Performed By: #### 2 [id number] #### [facility] [address] [place] [address] Eosinophils (Bld) [#/Vol] 0.1 E9/L Normal 0.0-0.5 [facility] Comment on above: Performed By: #### 2 [id number] #### [facility] [address] [place] [address] Eosinophils/100 WBC (Bld) 1.6 % Normal 0.0-8.0 [facility] Comment on above: Performed By: #### 2 [id number] #### [facility] [address] [place] [address] Erythrocyte distribution width (RBC) [Ratio] 14.6 % High 10.9-14.2 [facility] Comment on above: Performed By: #### 2 [id number] #### [facility] [address] [place] [address] Hematocrit (Bld) [Volume fraction] 34.0 % Normal 34.0-46.0 [facility] Comment on above: Performed By: #### 2 [id number] #### [facility] [address] [place] [address] Hemoglobin (Bld) [Mass/Vol] 11.2 g/dL Low 12.0-16.0 [facility] Comment on above: Performed By: #### 2 [id number] #### [facility] [address] [place] [address] Lymphocytes (Bld) [#/Vol] 1.2 E9/L Normal 1.0-4.0 [facility] Comment on above: Performed By: #### 2 [id number] #### [facility] [address] [place] [address] Lymphocytes/100 WBC (Bld) 15.1 % Normal 14.0-50.0 [facility] Comment on above: Performed By: #### 2 [id number] #### [facility] [address] [place] [address] MCH (RBC) [Entitic mass] 29.3 pg Normal 27.0-34.0 [facility] Comment on above: Performed By: #### 2 [id number] #### [facility] [address] [place] [address] MCHC (RBC) [Mass/Vol] 32.9 g/dL Normal 31.4-36.0 [facility] Comment on above: Performed By: #### 2 [id number] #### [facility] [address] [place] [address] MCV (RBC) [Entitic vol] 89.0 fL Normal 80.0-100.0 F [facility] Comment on above: Performed By: #### 2 [id number] #### [facility] [address] [place] [address] Monocytes (Bld) [#/Vol] 0.9 E9/L Normal 0.2-1.0 F [facility] Comment on above: Performed By: #### 2 [id number] #### [facility] [address] [place] [address] Neutrophils (Bld) [#/Vol] 5.3 E9/L Normal 2.0-7.5 [facility] Comment on above: Performed By: #### 2 [id number] #### [facility] [address] [place] [address] Neutrophils/100 WBC (Bld) 69.9 % Normal 36.0-75.0 [facility] Comment on above: Performed By: #### 2 [id number] #### [facility] [address] [place] [address] Platelet 241.0 E9/L Normal 150.0-500.0 [facility] Comment on above: Performed By: #### 2 [id number] #### [facility] [address] [place] [address] Platelet mean volume (Bld) [Entitic vol] 7.6 fL Normal 6.4-10.8 [facility] Comment on above: Performed By: #### 2 [id number] #### [facility] [address] [place] [address] RBC (Bld) [#/Vol] 3.8 E12/L Low 4.3-5.9 [facility] Comment on above: Performed By: #### 2 [id number] #### [facility] [address] [place] [address] WBC corrected for nucl RBC Auto (Bld) [#/Vol] 7.6 E9/L Normal 4.0-11.0 [facility] Comment on above: Performed By: #### 2 [id number] #### [facility] [address] [place] [address] [facility] APTTon 06-26-2024 aPTT Coag (Bld) [Time] 29.3 s NO [facility] CHEMISTRYOrdered By: SYSTEM SYSTEM on 06-26-2024 [...] 34.6 s Normal 25.1 - 36.5 second(s) [facility] Auto Coag Comment on above: [...] ranges were obtained from a study by brittaney Nolasco prepared from 1437 samples obtained at 7 different centers using the same coagulation reagent and instrumentation as [facility]. Currently there are no coagulation studies available worldwide for children to 14 days, and no normal ranges. Heparin therapeutic range (represented by Anti-Factor Xa activity of 0.2 - 0.4 U/mL) corresponds to PTT of 56.6 - 109.0 sec. INR Coag (PPP) [Relative time] 1.16 {INR} Invalid Interpretation Code [facility] Auto Coag Comment on above: Interpretive Data: I NR results are specifically intended to assess patients stabilized on long-term Anticoagulation therapy suggested INR s Less Intensive Anticoagulation 2.0 3.0 Conventional Range 3.0 4.5 PT Coag (PPP) [Time] 13.0 s High 9.4 - 1 2.5 second(s) [facility] Auto Coag Comment on above: [...] ranges were obtained from a study by brittaney Nolasco prepared from 1437 samples obtained at 7 different centers using the same coagulation reagent and instrumentation as [facility]. Currently there are no coagulation [...] E9/L Remisol Heme No Panel Informationon 06-26 [facility] PT & PTTon 06-26-2024 aPTT Coag (PPP) [Time] 34.6 second(s) Normal 25.1-36.5 [facility] Comment on above: Result Comment: Para [...] the same coagulation reagent and instrumentation as [facility]. Currently there are no coagulation studies available worldwide for children to 14 days, and no normal ranges. Heparin therapeutic range (represented by Anti-Factor Xa activity of 0.2 - 0.4 U/mL) corresponds to PTT of 56.6 - 109.0 sec. Performed By: #### 1 [id number] #### [facility] [address] [place] [address] INR Coag (PPP) [Relative time] 1.16 {INR} Invalid Interpretation Code [facility] Comment on above: Result Comment: INR results are specifically intended to assess patients stabilized on long-term Anticoagulation therapy suggested INR???s ???Less Intensive Anticoagulation??? 2.0 ??? 3.0 Conventional Range 3.0 ??? 4.5 Performed By: #### 1 [id number] #### [facility] [address] [place] [address] PT Coag (PPP) [Time] 13.0 second(s) High 9.4-12.5 [facility] Comment on above: Result Comment: 15 [...] the same coagulation reagent and instrumentation as [facility]. Currently there are no coagulation studies available worldwide for children to 14 days, and no normal ranges. Performed By: #### 1 [id number] #### [facility] [address] [place] [address] [facility] W/O COUMon 06-26-2024 PT Coag (PPP) [Time] 11.4 s [facility] INR 1.08 [facility] Comment on above: DESIRED INR: 2.0-3.0 CONDITIONS NOT LISTED BELOW 2.5-3.5 FOR PROSTHETIC HEART VALVE REPLACEMENT 2.5-3.5 RECURRENT THROMBOSIS UA with Cult Rflxon 06-27-19 25 Bilirubin Ql (U) Negative Normal Negative [facility] Comment on above: Performed By: #### 4 [id number] #### [facility] [address] [place] [address] Clarity (U) Clear Normal Clear [facility] Comment on above: Performed By: #### 4 [id number] #### [facility] [address] [place] [address] Color (U) Yellow Normal Yellow [facility] Comment on above: Result Comment: Micr oscopic readings are only performed on those samples that meet specific criteria set forth by [facility]. Performed By: #### 4 [id number] #### [facility] [address] [place] [address] Glucose Ql (U) Negative Normal Negative [facility] Comment on above: Performed By: #### 4 [id number] #### [facility] [address] [place] [address] Hemoglobin Auto test strip (U) [Mass/Vol] Negative Normal Negative [facility] Comment on above: Performed By: #### 4 [id number] #### [facility] [address] [place] [address] Ketones Auto test strip Ql (U) Negative Normal Negative [facility] Comment on above: Performed By: #### 4 [id number] #### [facility] [address] [place] [address] Leukocyte esterase Auto test strip Ql (U) Negative Normal Negative [facility] Comment on above: Performed By: #### 4 [id number] #### [facility] [address] [place] [address] Nitrite Auto test strip Ql (U) Negative Normal Negative [facility] Comment on above: Performed By: #### 4 [id number] #### [facility] [address] [place] [address] pH (U) 5.0 [pH] Invalid Interpretation Code 5.0-9.0 [facility] Comment on above: Performed By: #### 4 [id number] #### [facility] [address] [place] [address] Protein Ql (U) Trace Abnormal Negative [facility] Comment on above: Performed By: #### 4 [id number] #### [facility] [address] [place] [address] Specific gravity (U) [Rel density] 1.016 Invalid Interpretation Code 1.005-1.030 [facility] Comment on above: Performed By: #### 4 [id number] #### [facility] [address] [place] [address] Urobilinogen (U) [Mass/Vol] Negative Normal Negative [facility] Comment on above: Performed By: #### 4 [id number] #### [facility] [address] [place] [address] Type of Urine collection method Clean Catch Normal [facility] Comment on above: Performed By: #### 4 [id number] #### [facility] [address] [place] [address] URINALYSISOrdered By: SYSTEM SYSTEM on 06-26-2024 Bilirubin Ql (U) Negative Normal Negativemg/ dL [facility] UA Auto SS Clarity (U) Clear (06/26/24 1:56 PM) Normal Clear [facility] UA Auto SS Color (U) Yellow 1 (06/26/24 1:56 PM) Normal Yellow [facility] UA Auto SS Comment on above: Interpretive Data: M icroscopic readings are only performed on those samples that meet specific criteria set forth by [facility]. Glucose Ql (U) Negative Normal Negativemg/ dL [facility] Auto SS Hemoglobin Auto test strip (U) [Mass/Vol] Negative Normal Negativemg/ dL [facility] UA Auto SS Ketones Auto test strip Ql (U) Negative Normal Negativemg/ dL [facility] UA Auto SS Leukocyte esterase Auto test strip Ql (U) Negative Normal NegativeLeu /uL [facility] UA Auto SS Nitrite Auto test strip Ql (U) Negative Normal Negativemg/ dL [facility]A Auto SS pH (U) 5.0 *NA* (06/26/24 1:56 PM) Invalid Interpretation Code 5.0 - 9.0 [facility] Auto SS Protein Ql (U) Trace mg/dL Invalid Interpretation Code Negativemg/ dL [facility] UA Auto SS Specific gravity (U) [Rel density] 1.016 *NA* (06/26/24 1:56 PM) Invalid Interpretation Code 1.005 - 1.030 [facility] UA Auto SS Urobilinogen (U) [Mass/Vol] Negative Normal Negativemg/ dL [facility] UA Auto SS URINALYSISOrdered By: Grover Roberts on 06-26-2024 UA Spec Desc Clean Catch (06/26/24 1:56 PM) Normal [facility] Auto SS eGFRon 06-26-2024 eGFR 34 mL/min/1.73 m2 Low >=59 [facility] Comment on above: Performed By: #### 1 [id number] ####[facility] [address] [place] [address] Albumin [Mass/volume] in Ser um or Plasmaon 06-20-2024 Albumin [Mass/Vol] Albumin [Mass/volume ] in Serum or Plasma 2.9-4.4 [facility] IgA [Mass/volume] in Serum o r Plasmaon 06-20-2024 IgA [Mass/Vol] IgA [Mass/volume] in Serum or Plasma 64-422 [facility] IgG [Mass/volume] in Serum o r Plasmaon 06-20-2024 IgG [Mass/Vol] IgG [Mass/volume] in Serum or Plasma 586-1602 [facility] IgM [Mass/volume] in Serum o r Plasmaon 06-20-2024 IgM [Mass/Vol] IgM [Mass/volume] in Serum or Plasma 26-217 [facility] Immunofixation for Urineon 0 06-20-2024 Interpretation Immunofixation (U) [Interp] Immunofixation for Urine . [facility] Comment on above: No monoclonality det ected.Performed at: [facility] [address] [id number] Director: Jozef Medina PhD, Phone: [phone] Immunoglobulin light chains. kappa.free [Mass/volume] in Serumon 06-20-2024 Immunoglobulin light chains.kappa.free (S) [Mass/Vol] Immunoglobulin light chains.kappa.free [Mass/volume] in Serum Abnormal 3.3-19.4 [facility] Immunoglobulin light chains. kappa.free/Immunoglobulin light chains.lambda.free [Alexandra 06-20-2024 Immunoglobulin light chains.kappa.free/Immun oglobulin light chains.lambda.free (S) [Mass ratio] Immunoglobulin light chains.kappa.free/Immun oglobulin light chains.lambda.free [Mass Abnormal 0.26-1.65 [facility] Comment on above: Performed at: [facility] [address] [id number] Director: Jozef Medina PhD, Phone: [phone] Immunoglobulin light chains. lambda.free [Mass/volume] in Serum or Plasmaon 06-20-2024 Immunoglobulin light chains.lambda.free [Mass/Vol] Immunoglobulin light chains.lambda.free [Mass/volume] in Serum or Plasma Abnormal 5.7-26.3 [facility] Iron binding capacity [Mass/ volume] in Serum or Plasmaon 06-20-2024 Iron binding capacity [Mass/Vol] Iron binding capacity [Mass/volume] in Serum or Plasma Low 250.0-450.0 [facility] Iron saturation [Mass Fracti on] in Serum or Plasmaon 06-20-2024 Iron saturation [Mass fraction] Iron saturation [Mass Fraction] in Serum or Plasma [facility] - Chemistry and C hemistry - challengeon 06-20-2024 Ferritin [Mass/Vol] 147.0 ng/mL 8.0-252.0 [facility] Iron [Mass/Vol] 51.0 ug/dL 50.0-170.0 [facility] Magnesium [Mass/Vol] 1.6 mg/dL Low 1.8-2.4 [facility] Urate [Mass/Vol] 8.0 mg/dL High 2.6-6.0 [facility] - Urinalysison Protein (U) [Mass/Vol] 30.4 mg/dL High <=11.9 [facility] No Panel Informationon 06-20 25-Hydroxy Vitamin D Total 37.9 ng/mL [facility] Comment on above: <20 ng/mL Vit D defi cient20-<30 ng/mL Vit D [id number] ng/mL Vit D sufficient>100 ng/mL Potential Toxicity Parathyroid Hormone (Intact) 43 pg/mL 15-65 [facility] Comment on above: Performed at: [place] [id number] Director: Jozef Medina PhD, Phone: [phone] Phosphorus Level 3.7 mg/dL 2.6-4.7 [facility] Protein Electrophoresis M-Benjy Comment: g/dL Not Observed [facility] Comment on above: SPE shows an asymmet rical gamma. Protein Electrophoresis Note Comment . [facility] Comment on above: Protein electrophore sis scan will follow via computer,mail, or welfare supervisor delivery. Urine Random Creatinine 127.97 mg/dL 20.0 0-300.0 0 [facility] Protein [Mass/volume] in Ser um or Plasmaon 06-20-2024 Protein [Mass/Vol] Protein [Mass/volume ] in Serum or Plasma 6.0-8.5 [facility] Serum globulin measurement ( mass/volume)on 06-20-2024 Globulin (S) [Mass/Vol] Serum globulin measurement (mass/volume) 2.2-3.9 [facility] Serum or plasma albumin/glob ulin mass ratioon 06-20-2024 Albumin/Globulin [Mass ratio] Serum or plasma albumin/globulin mass ratio 0.7-1.7 [facility] Serum or plasma alpha 1 glob ulin measurement by electrophoresis (mass/volume)on 06-20-2024 Alpha 1 globulin Elph [Mass/Vol] Serum or plasma alpha 1 globulin measurement by electrophoresis (mass/volume) 0.0-0.4 [facility] Serum or plasma alpha 2 glob ulin measurement by electrophoresis (mass/volume)on 06-20-2024 Alpha 2 globulin Elph [Mass/Vol] Serum or plasma alpha 2 globulin measurement by electrophoresis (mass/volume) 0.4-1.0 [facility] Serum or plasma beta globuli n measurement by electrophoresis (mass/volume)on 06-20-2024 Beta globulin Elph [Mass/Vol] Serum or plasma beta globulin measurement by electrophoresis (mass/volume) 0.7-1.3 [facility] Serum or plasma gamma globul in measurement by electrophoresis (mass/volume)on 06-20-2024 Gamma globulin Elph [Mass/Vol] Serum or plasma gamma globulin measurement by electrophoresis (mass/volume) 0.4-1.8 [facility] Serum or plasma immunoelectr ophoresis interpretationon 06-20-2024 Interpretation IEP [Interp] Serum or plasma immunoelectrophoresis interpretation . [facility] Comment on above: Presence of monoclon al protein is unclear at this time. Suggestrepeat in 3 to 6 months if clinically indicated. Urine protein/creatinine rat ioon 06-20-2024 Protein/Creatinine (U) [Ratio] Urine protein/creatinine ratio [facility] Urology Office/Clinic Noteon 05-19-2024 Urology Office/Clinic [...] for UCC. 4. Aspirin long-term use (Z79.82: rn long term care (current) use of aspirin) ASA. No BTs. Has pacemaker. Hx of [place] but was asx, not sure when it [...] with voice recognition artificial intelligence software, specifically Proofpoint, [employer] and or [employer]. Substitutions may have occurred due to the inherent limitations of voice recognition and artificial intelligence software. Documentation recorded by the scribe, Eliv Posadas, accurately reflects the services(s) I performed [...] (more content not included)... Normal [facility] Comment on above: Result Comment: Elec tronically Signed By: ROSETTA MENDEZ MD\.br\Date and Time Signed: 05/19/24 09:40 EST\.br\Electronically Co-Signed By: Elvi Posadas\.br\Date and Time Co-Signed: 05/19/24 09:01 EST Office Visiton 05-09-2024 Follow-up visit [id number] Brian Sadler se 1950 F Date Provider Department Center 05/09/2024 JOSEY ARNOLD [facility] Family History Problem Relation Age of Onset Other Mother Coronary artery disease Mother Other Mother Other Mother Other Father Hypertension Father Hyperlipidemia Father Other Daughter Family Status - Relation Status Age at Mother Father Daughter Level of Service:48219 [place] OFFICE/OUTPATIENT ESTABLISHED LOW MDM 20 MIN Normal [facility] XR Sinuses [address] [place] [address] XRay Report Signed Patient: VERO SADLER MR#: [id number] : 1950 Acct:[id number] Age/Sex: 74 / F ADM Date: 05/09/24 Loc: RAD Attending Dr: oJhn Mathews M.D. Ordering Physician: John Mathews M.D. Date of Service: 05/09/24 Procedure(s): XR sinus min 3V Accession Number(s): [id number] cc: Debbie Bhatia M.D.; John Mathews M.D. [place] [id number] Patient Name: VERO SADLER MRN: [id number] date: 1950 Sex: F Assigned Patient Location: RAD Current Patient Location: RAD Accession/Order Number: [id number] Exam Date: 05/09/2024 12:47 Report Date: 05/09/2024 [...] Kelly Lao M.D.05/09/2024 12:54 PM Dictation Location: [place] [address] Electronically authenticated by: [id number] Y Date: 05/09/2024 12:54 Dictated By: Kelly Lao M.D. Signed By: 05/09/24 1257 DD/ 1254 TD/TT: Cardiac Monitor: [facility] Radiology, Radiologi MD sim - 05/09/2024 [place] [address] XRay Report Signed Patient: VERO SADLER MR#: [id number] : 1950 Acct:[id number] Age/Sex: 74 / F ADM Date: 05/09/24 Loc: RAD Attending Dr: John Mathews M.D. Ordering Physician: John Mathews M.D. Date of Service: 05/09/24 Procedure(s): XR sinus min 3V Accession Number(s): [id number] cc: Debbie Bhatia M.D.; John Mathews M.D. The [address] [address] Patient Name: VERO SADLER MRN: [facility]:[id number] date: 1950 Sex: F Assigned Patient Location: RAD Current Patient Location: RAD Accession/Order Number: [id number] Exam Date: 05/09/2024 12:47 Report Date: 05/09/2024 [...] Kelly Lao M.D.05/09/2024 12:54 PM Dictation Location: [place] [address] Electronically authenticated by: [id number] Y Date: 05/09/2024 12:54 Dictated By: Kelly Lao M.D. Signed By: 05/09/24 1257 DD/ 1254 TD/TT: Cardiac Monitor: [facility] [place] Radiology Study observation (narrative) [facility] XR Sinuses 3 ViewsOrdered By : Radiologist Radiology on 05-09-2024 [facility] Work Phone: Ambulatory Visit Summaryon 0 03-31-2024 Ambulatory Visit Summary Ambulatory Visit Summary VERO SADLER :1950 Visit Date:03/31/2024 Ambulatory Visit Instructions Your Diagnosis Stress incontinence, female Kidney stones Former smoker Aspirin long-term use Your Care Team Attending Physician - BRYAN BETLRÁN, ROSETTA Primary Care Physician - Debbie Bhatia [...] (more content not included)... Normal [facility] Urology Office/Clinic Noteon 03-31-2024 Urology Office/Clinic [...] ASA. No BTs. Has pacemaker. Hx of [place] but was asx, not sure when it [...] with voice recognition artificial intelligence software, specifically Proofpoint, [employer] and or [employer]. Substitutions may have occurred due to the [...] (more content not included)... Normal [facility] Comment on above: Result Comment: Elec tronically Signed By: BRYAN BELTRÁN, ROSETTA\.br\Date and Time Signed: 03/31/24 15:13 EST\.br\Electronically Co-Signed By: Elvi Posadas\.br\Date and Time Co-Signed: 03/31/24 15:10 EST\.br\Electronically Co-Signed By: Elvi Posadas P\.br\Date and Time Co-Signed: 03/31/24 15:10 EST Office Visiton 01-26-2024 Follow-up visit [id number] SadlerBrian se Wick 1950 F Date Provider Department Center 01/26/2024 Jj-TATO SALCIDO CARD [facility] Family History Problem Relation Age of Onset Other Mother Coronary artery disease Mother Other Mother Other Mother Other Father Hypertension Father Hyperlipidemia Father Other Daughter Family Status - Relation Status Age at Mother Father Daughter Level of Service:32316 [place] OFFICE/OUTPATIENT ESTABLISHED LOW MDM 20 MIN Normal [facility] MR LUMBAR SPINE WO CONTRASTo n [...] narrowing. Electronically signed: Arnol Cutler MD. Normal [facility] Comment on above: Order Comment: ORDER IN EPIC NURSNOTEon 11-23-2023 SANDIE Coughlin from [employer] prepped pacemaker. Patient verbalizes no issues with device. Monitor hooked up for continuous patient monitoring throughout the scan. Normal [facility] Office Visiton 10-26-2023 Follow-up visit [id number] Brian Sadler se 1950 F Date Provider Department Center 10/26/2023 JOSEY ARNOLD [facility] Family History Problem Relation Age of Onset Other Mother Coronary artery disease Mother Other Mother Other Mother Other Father Hypertension Father Hyperlipidemia Father Other Daughter Family Status - Relation Status Age at Mother Father Daughter Level of Service:90218 [place] OFFICE/OUTPATIENT ESTABLISHED LOW MDM 20 MIN Normal [facility] CBC AUTO DIFFon 05-05-2023 BASO # 0.0 103/ul Normal 0.0-0.1 [facility] Comment on above: Performed By: #### C BC #### [facility] [address] [place] [address] [address] Eusebia Moralez Basophils/100 WBC (Bld) 0.6 % Normal 0.2-2.0 [facility] Comment on above: Performed By: #### C BC #### [facility] [address] [place] [address] Dr. Eusebia Moralez EO # 0.2 103/ul Normal 0.0-0.7 [facility] [place] [facility] Comment on above: Performed By: #### C BC #### [facility] [address] [place] [address] Dr. Eusebia Moralez Eosinophils/100 WBC (Bld) 2.2 % Normal 0.9-7.0 [facility] [place] [facility] Comment on above: Performed By: #### C BC #### [facility] [address] [place] [address] Dr. Eusebia Moralez Erythrocyte distribution width (RBC) [Ratio] 13.0 % Normal 11.0-15.0 [facility] [place] [facility] Comment on above: Performed By: #### C BC #### [facility] [address] [place] [address] Dr. Eusebia Moralez Hematocrit (Bld) [Volume fraction] 40.5 % Normal 36.0-48.0 [facility] [place] [facility] Comment on above: Performed By: #### C BC #### [facility] [address] [place] [address] Dr. Eusebia Moralez Hemoglobin (Bld) [Mass/Vol] 12.7 g/dL Normal 12.0-16.0 [facility] [place] [facility] Comment on above: Performed By: #### C BC #### [facility] [address] [place] [address] Dr. Eusebia Moralez IG # 0.02 10e3/ul Normal 0.00-0.03 [facility] [place] [facility] Comment on above: Performed By: #### C BC #### [facility] [address] [place] [address] Dr. Eusebia Moralez IG % 0.3 % Normal 0.0-0.5 [facility] [place] [facility] Comment on above: Performed By: #### C BC #### [facility] [address] [place] [address] Dr. Eusebia Moralez LYMPH # 1.4 103/ul Normal 1.2-3.8 [facility] [place] [facility] Comment on above: Performed By: #### C BC #### [facility] [address] [place] [address] Dr. Eusebia Moralez Lymphocytes/100 WBC (Bld) 19.9 % Critically low 20.5-60.0 [facility] [place] [facility] Comment on above: Performed By: #### C BC #### [facility] [address] [place] [address] Dr. Eusebia Moralez MANUAL DIFF REQ NO Normal [facility] Comment on above: Performed By: #### C BC #### [facility] [address] [place] [address] Dr. Eusebia Moralez MCH (RBC) [Entitic mass] 29.1 pg Normal 26.7-34.0 [facility] [place] [facility] Comment on above: Performed By: #### C BC #### [facility] [address] [place] [address] Dr. Eusebia Moralez MCHC (RBC) [Mass/Vol] 31.4 g/dL Normal 29.9-35.2 [facility] [place] [facility] Comment on above: Performed By: #### C BC #### [facility] [address] [place] [address] Dr. Eusebia Moralez MCV (RBC) [Entitic vol] 92.9 fL Normal 81.0-99.0 [facility] Comment on above: Performed By: #### C BC #### [facility] [address] [place] [address] Dr. Eusebia Moarlez MONO # 0.7 103/ul Normal 0.3-0.8 [facility] [place] [facility] Comment on above: Performed By: #### C BC #### [facility] [address] [place] [address] Dr. Eusebia Moralez Monocytes/100 WBC (Bld) 9.4 % Normal 1.7-12.0 [facility] Comment on above: Performed By: #### C BC #### [facility] [address] [place] [address] Dr. Eusebia Moralez NEUT # 4.7 103/ul Normal 1.4-6.5 [facility] [place] [facility] Comment on above: Performed By: #### C BC #### [facility] [address] [place] [address] Dr. Eusebia Moralez Neutrophils/100 WBC (Bld) 67.6 % Normal 43.0-75.0 [facility] [place] [facility] Comment on above: Performed By: #### C BC #### [facility] [address] [place] [address] Dr. Eusebia Moralez Platelet mean volume (Bld) [Entitic vol] 9.9 fL Normal 9.5-13.5 [facility] [place] [facility] Comment on above: Performed By: #### C BC #### [facility] [address] [place] [address] Dr. Eusebia Moralez PLT 218 103/ul Normal 150-450 [facility] [place] [facility] Comment on above: Performed By: #### C BC #### [facility] [address] [place] [address] Dr. Eusebia Moralez RBC 4.36 106/ul Normal 4.20-5.40 [facility] [place] [facility] Comment on above: Performed By: #### C BC #### [facility] [address] [place] [address] Dr. Eusebia Moralez WBC 6.9 103/ul Normal 4.0-11.0 [facility] [place] [facility] Comment on above: Performed By: #### C BC #### [facility] [address] [place] [address] Dr. Eusebia Moralez PROF CHEM 8 (BAS METB)on Anion gap [Moles/Vol] 9.0 mmol/L Normal [facility] [place] [facility] Comment on above: Performed By: #### B MP #### [facility] [address] [place] [address] Dr. Eusebia Moralez Calcium [Mass/Vol] 9.2 mg/dL Normal 8.5-10.1 [facility] [place] [facility] Comment on above: Performed By: #### B MP #### [facility] [address] [place] [address] Dr. Eusebia Moralez Chloride [Moles/Vol] 103 mmol/L Normal 98-107 [facility] [place] [facility] Comment on above: Performed By: #### B MP #### [facility] [address] [address] [address] Eusebia Moralez CO2 [Moles/Vol] 32.9 mmol/L Critically high 21.0-32.0 [facility] [place] [facility] Comment on above: Performed By: #### B MP #### [facility] [address] [place] [address] Dr. Eusebia Moralez Creatinine [Mass/Vol] 1.74 mg/dL Critically high 0.55-1.02 [facility] [place] [facility] Comment on above: Performed By: #### B MP #### [facility] [address] [place] [address] Dr. Eusebia Moralez EGFR-AF HAITIAN 35 mL/min/1.73m2 Critically low >=60 [facility] [place] [facility] Comment on above: Performed By: #### B MP #### [facility] [address] [place] [address] Dr. Eusebia Moralez EGFR-NON AF HAITIAN 29 mL/min/1.73m2 Critically low >=60 [facility] [place] [facility] Comment on above: Performed By: #### B MP #### [facility] [address] [place] [address] Dr. Eusebia Moralez Glucose [Mass/Vol] 101 mg/dL Normal 74-106 [facility] [place] [facility] Comment on above: Performed By: #### B MP #### [facility] [address] [address] [address] Eusebia Moralez Potassium [Moles/Vol] 3.9 mmol/L Normal 3.5-5.1 [facility] [place] [facility] Comment on above: Performed By: #### B MP #### [facility] [address] [place] [address] Dr. Eusebia Moralez Sodium [Moles/Vol] 141 mmol/L Normal 136-145 [facility] Comment on above: Performed By: #### B MP #### [facility] [address] [address] [address] Eusebia Moralez Urea nitrogen [Mass/Vol] 34.0 mg/dL Critically high 7.0-18.0 [facility] [place] [facility] Comment on above: Performed By: #### B MP #### [facility] [address] [address] [address] Eusebia Moralez Urea nitrogen/Creatinine [Mass ratio] 19.5 mg/mg Normal [facility] [place] [facility] Comment on above: Performed By: #### B MP #### [facility] [address] [address] [address] Eusebia Moralez CBC AUTO DIFFon 07-02-2022 BASO # 0.1 103/ul Normal 0.0-0.1 [facility] [place] [facility] Comment on above: Performed By: #### C BC ####[facility] [address] [address]Dr. Eusebia Moralez Basophils/100 WBC (Bld) 0.7 % Normal 0.2-2.0 [facility] Comment on above: Performed By: #### C BC ####[facility] [address] [place], [place] [address]Dr. Eusebia Moralez EO # 0.1 103/ul Normal 0.0-0.7 [facility] [place] [facility] Comment on above: Performed By: #### C BC ####[facility] [address] [address]Dr. Eusebia Moralez Eosinophils/100 WBC (Bld) 1.8 % Normal 0.9-7.0 [facility] [place] [facility] Comment on above: Performed By: #### C BC ####[facility] [address] [address]DrRadha Moralez Erythrocyte distribution width (RBC) [Ratio] 13.1 % Normal 11.0-15.0 [facility] [place] [facility] Comment on above: Performed By: #### C BC ####[facility] [address] [address]Dr. Eusebia Moralez Hematocrit (Bld) [Volume fraction] 40.2 % Normal 36.0-48.0 [facility] [place] [facility] Comment on above: Performed By: #### C BC ####[facility] [address] [address]DrRadha Moralez Hemoglobin (Bld) [Mass/Vol] 12.5 g/dL Normal 12.0-16.0 [facility] [place] [facility] Comment on above: Performed By: #### C BC ####[facility] [address] [address]DrRadha Moralez IG # 0.01 10e3/ul Normal 0.00-0.03 [facility] [place] [facility] Comment on above: Performed By: #### C BC ####[facility] [address] [place], [place] [address]DrRadha Moralez IG % 0.1 % Normal 0.0-0.5 [facility] [place] [facility] Comment on above: Performed By: #### C BC ####[facility] [address] [place], [place] [address]DrRadha Moralez LYMPH # 1.5 103/ul Normal 1.2-3.8 [facility] Comment on above: Performed By: #### C BC ####[facility] [address] [place], [place] [address]DrRadha Moralez Lymphocytes/100 WBC (Bld) 22.6 % Normal 20.5-60.0 [facility] [place] [facility] Comment on above: Performed By: #### C BC ####[facility] [address] [place], [place] [address]DrRadha Moralez MANUAL DIFF REQ NO Normal [facility] Comment on above: Performed By: #### C BC ####[facility] [address] [id number] Moralez MCH (RBC) [Entitic mass] 29.3 pg Normal 26.7-34.0 [facility] [place] [facility] Comment on above: Performed By: #### C BC ####[facility] [address] [id number] Moralez MCHC (RBC) [Mass/Vol] 31.1 g/dL Normal 29.9-35.2 [facility] [place] [facility] Comment on above: Performed By: #### C BC ####[facility] [address] [address]DrRadha Eusebia Kirt MCV (RBC) [Entitic vol] 94.4 fL Normal 81.0-99.0 [facility] Comment on above: Performed By: #### C BC ####[facility] [address] [address]DrRadha Moralez MONO # 0.6 103/ul Normal 0.3-0.8 [facility] [place] [facility] Comment on above: Performed By: #### C BC ####[facility] [address] [address]DrRadha Moralez Monocytes/100 WBC (Bld) 9.1 % Normal 1.7-12.0 [facility] Comment on above: Performed By: #### C BC ####[facility] [address] [place], [place] [address]DrRadha Moralez NEUT # 4.4 103/ul Normal 1.4-6.5 [facility] [place] [facility] Comment on above: Performed By: #### C BC ####[facility] [address] [place], [place] [address]DrRadha Moralez Neutrophils/100 WBC (Bld) 65.7 % Normal 43.0-75.0 [facility] [place] [facility] Comment on above: Performed By: #### C BC ####[facility] [address] [place], [place] [address]DrRadha Moralez Platelet mean volume (Bld) [Entitic vol] 9.6 fL Normal 9.5-13.5 [facility] [place] [facility] Comment on above: Performed By: #### C BC ####[facility] [address] [place], [place] [address]DrRadha Moralez PLT 204 103/ul Normal 150-450 [facility] Comment on above: Performed By: #### C BC ####[facility] [address] [id number] Moralez RBC 4.26 106/ul Normal 4.20-5.40 [facility] Comment on above: Performed By: #### C BC ####[facility] [address] [address]DrRadha Moralez WBC 6.7 103/ul Normal 4.0-11.0 [facility] [place] [facility] Comment on above: Performed By: #### C BC ####[facility] [address] [address]DrRadha Moralez PROF CHEM 8 (BAS METB)on Anion gap [Moles/Vol] 11.2 mmol/L Normal [facility] Comment on above: Performed By: #### B MP ####[facility] [address] [address]DrRadha Moralez Calcium [Mass/Vol] 9.2 mg/dL Normal 8.5-10.1 [facility] [place] [facility] Comment on above: Performed By: #### B MP ####[facility] [address] [place], [place] [address]DrRadha Moralez Chloride [Moles/Vol] 109 mmol/L Critically high 98-107 [facility] [place] [facility] Comment on above: Performed By: #### B MP ####[facility] [address] [place], [place] [address]DrRadha Moralez CO2 [Moles/Vol] 27.6 mmol/L Normal 21.0-32.[address] [facility] Comment on above: Performed By: #### B MP ####[facility] [address] [place], [place] [address]DrRadha Moralez Creatinine [Mass/Vol] 1.49 mg/dL Critically high 0.55-1.02 [facility] [place] [facility] Comment on above: Performed By: #### B MP ####[facility] [address] [place], [place] [address]DrRadha Moralez EGFR-AF HAITIAN 42 mL/min/1.73m2 Critically low >=60 [facility] Comment on above: Performed By: #### B MP ####[facility] [address] [place], [place] [address]DrRadha Moralez EGFR-NON AF HAITIAN 34 mL/min/1.73m2 Critically low >=60 [facility] Comment on above: Performed By: #### B MP ####[facility] [address] [address]Dr. Eusebia Moralez Glucose [Mass/Vol] 89 mg/dL Normal 74-[address] [facility] Comment on above: Performed By: #### B MP ####[facility] [address] [address]Dr. Eusebia Moralez Potassium [Moles/Vol] 4.8 mmol/L Normal 3.5-5.1 [facility] [place] [facility] Comment on above: Performed By: #### B MP ####[facility] [address] [address]Dr. Eusebia Moralez Sodium [Moles/Vol] 143 mmol/L Normal 136-[address] [facility] Comment on above: Performed By: #### B MP ####[facility] [address] [address]Dr. Eusebia Moralez Urea nitrogen [Mass/Vol] 27.0 mg/dL Critically high 7.0-18.0 [facility] [place] [facility] Comment on above: Performed By: #### B MP ####[facility] [address] [address]Dr. Eusebia Moralez Urea nitrogen/Creatinine [Mass ratio] 18.1 mg/mg Normal [facility] [place] [facility] Comment on above: Performed By: #### B MP ####[facility] [address] [place], [place] [address]Dr. Eusebia Moralez CT LUNG CANCER SCREENINGon 1 [...] AMBAR MAYA Date: 2022-02-24 08:15 Normal [facility] PROF CHEM 8 (BAS METB)on Anion gap [Moles/Vol] 9.7 mmol/L Normal [facility] [place] [facility] Comment on above: Performed By: #### B MP #### [facility] [address] [address] [address] Eusebia Moralez Calcium [Mass/Vol] 8.8 mg/dL Normal 8.5-10.1 [facility] [place] [facility] Comment on above: Performed By: #### B MP #### [facility] [address] [address] [address] Eusebia Moralez Chloride [Moles/Vol] 107 mmol/L Normal 98-107 [facility] [place] [facility] Comment on above: Performed By: #### B MP #### [facility] [address] [address] [address] Eusebia Moralez CO2 [Moles/Vol] 29.5 mmol/L Normal 21.0-32.0 [facility] Comment on above: Performed By: #### B MP #### [facility] [address] [address] [address] Eusebia Moralez Creatinine [Mass/Vol] 1.83 mg/dL Critically high 0.55-1.02 [facility] [place] [facility] Comment on above: Performed By: #### B MP #### [facility] [address] [address] [address] Eusebia Moralez EGFR-AF HAITIAN 33 mL/min/1.73m2 Critically low >=60 [facility] [place] [facility] Comment on above: Performed By: #### B MP #### [facility] [id number] [address] Eusebia Moralez EGFR-NON AF HAITIAN 27 mL/min/1.73m2 Critically low >=60 [facility] [place] [facility] Comment on above: Performed By: #### B MP #### [facility] [address] [address] [address] Eusebia Moralez Glucose [Mass/Vol] 87 mg/dL Normal 74-106 [facility] [place] [facility] Comment on above: Performed By: #### B MP #### [facility] [id number] [address] Eusebia Moralez Potassium [Moles/Vol] 5.2 mmol/L Critically high 3.5-5.1 [facility] [place] [facility] Comment on above: Performed By: #### B MP #### [facility] [address] [address] [address] Eusebia Moralez Sodium [Moles/Vol] 141 mmol/L Normal 136-145 [facility] [place] [facility] Comment on above: Performed By: #### B MP #### [facility] [id number] [address] Eusebia Moralez Urea nitrogen [Mass/Vol] 37.0 mg/dL Critically high 7.0-18.0 [facility] [place] [facility] Comment on above: Performed By: #### B MP #### [facility] [id number] [address] Eusebia Moralez Urea nitrogen/Creatinine [Mass ratio] 20.2 mg/mg Normal [facility] [place] [facility] Comment on above: Performed By: #### B MP #### [facility] [id number] Eusebia Moralez NM STRESS/REST MULTIon 01-23 NM STRESS/REST MULTI Patient: DARON SADLER Exam Date: 01/23/2022 : 1950 Gender:F Ordering : DR DEBBIE BHATIA . Admission #: [id number] Family : Order #: [id number] CLICK HERE TO VIEW EXAM RADIOLOGY REPORT [...] Canchola MD on 01/26/2022 at 13:45 Normal [facility] [place] [facility] ECHOCARDIO M/2D COMPLETEon 1 03-23-2021 ECHOCARDIO M/2D COMPLETE Patient: VERO SADLER Exam Date: 01/21/2022 : 1950 Gender:F Ordering : DR DEBBIE BHATIA . Admission #: [id number] Family : Order #: [id number] CLICK HERE TO VIEW EXAM ECHOCARDIOGRAM REPORT [...] Salcido M.D. on 01/21/2022 at 09:17 Normal [facility] [place] [facility] XR DEXA BONE DENSITYon 01-21 XR [...] by: RAJI CANCHOLA Date: 2022-01-21 10:03 Normal [facility] BNPon 01-14-2022 Natriuretic peptide B (Bld) [Mass/Vol] 834.0 pg/mL Normal <=900.0 [facility] Comment on above: Performed By: #### T SH, BNP, CMP, T7, LIPID ####[facility] [address] [place], [place] [address]Ib. Eusebia Moralez CBC AUTO DIFFon 01-14-2022 BASO # 0.0 103/ul Normal 0.0-0.1 [facility] [place] [facility] Comment on above: Performed By: #### C BC #### [facility] [address] [address] [address] Eusebia Moralez Basophils/100 WBC (Bld) 0.4 % Normal 0.2-2.0 [facility] Comment on above: Performed By: #### C BC #### [facility] [address] [place] [address] Dr. Eusebia Moralez EO # 0.1 103/ul Normal 0.0-0.7 [facility] [place] [facility] Comment on above: Performed By: #### C BC #### [facility] [address] [place] [address] Dr. Eusebia Moarlez Eosinophils/100 WBC (Bld) 1.1 % Normal 0.9-7.0 [facility] [place] [facility] Comment on above: Performed By: #### C BC #### [facility] [address] [place] [address] Dr. Eusebia Moralez Erythrocyte distribution width (RBC) [Ratio] 15.0 % Normal 11.0-15.0 [facility] [place] [facility] Comment on above: Performed By: #### C BC #### [facility] [address] [place] [address] Dr. Eusebia Moralez Hematocrit (Bld) [Volume fraction] 39.6 % Normal 36.0-48.0 [facility] [place] [facility] Comment on above: Performed By: #### C BC #### [facility] [address] [place] [address] Dr. Eusebia Moralez Hemoglobin (Bld) [Mass/Vol] 12.4 g/dL Normal 12.0-16.0 [facility] [place] [facility] Comment on above: Performed By: #### C BC #### [facility] [address] [place] [address] Dr. Eusebia Moralez IG # 0.02 10e3/ul Normal 0.00-0.03 [facility] Comment on above: Performed By: #### C BC #### [facility] [address] [place] [address] Dr. Eusebia Moralez IG % 0.3 % Normal 0.0-0.5 [facility] [place] [facility] Comment on above: Performed By: #### C BC #### [facility] [address] [place] [address] Dr. Eusebia Moralez LYMPH # 1.3 103/ul Normal 1.2-3.8 [facility] [place] [facility] Comment on above: Performed By: #### C BC #### [facility] [address] [place] [address] Dr. Eusebia Moralez Lymphocytes/100 WBC (Bld) 17.9 % Critically low 20.5-60.0 [facility] [place] [facility] Comment on above: Performed By: #### C BC #### [facility] [address] [place] [address] Dr. Eusebia Moralez MANUAL DIFF REQ NO Normal [facility] Comment on above: Performed By: #### C BC #### [facility] [address] [place] [address] Dr. Eusebia Moralez MCH (RBC) [Entitic mass] 29.8 pg Normal 26.7-34.0 [facility] [place] [facility] Comment on above: Performed By: #### C BC #### [facility] [address] [place] [address] Dr. Eusebai Moralez MCHC (RBC) [Mass/Vol] 31.3 g/dL Normal 29.9-35.2 [facility] [place] [facility] Comment on above: Performed By: #### C BC #### [facility] [address] [place] [address] Dr. Eusebia Moralez MCV (RBC) [Entitic vol] 95.2 fL Normal 81.0-99.0 [facility] Comment on above: Performed By: #### C BC #### [facility] [address] [place] [address] Dr. Eusebia Moralez MONO # 0.5 103/ul Normal 0.3-0.8 [facility] [place] [facility] Comment on above: Performed By: #### C BC #### [facility] [address] [place] [address] Dr. Eusebia Moralez Monocytes/100 WBC (Bld) 7.0 % Normal 1.7-12.0 [facility] Comment on above: Performed By: #### C BC #### [facility] [address] [place] [address] Dr. Eusebia Moralez NEUT # 5.2 103/ul Normal 1.4-6.5 [facility] [place] [facility] Comment on above: Performed By: #### C BC #### [facility] [address] [address] [address] Eusebia Moralez Neutrophils/100 WBC (Bld) 73.3 % Normal 43.0-75.0 [facility] Comment on above: Performed By: #### C BC #### [facility] [address] [address] [address] Eusebia Moralez Platelet mean volume (Bld) [Entitic vol] 9.5 fL Normal 9.5-13.5 [facility] [place] [facility] Comment on above: Performed By: #### C BC #### [facility] [address] [place] [address] Dr. Eusebia Moralez PLT 188 103/ul Normal 150-450 [facility] Comment on above: Performed By: #### C BC #### [facility] [address] [address] [address] Eusebia Moralez RBC 4.16 106/ul Critically low 4.20-5.40 [facility] Comment on above: Performed By: #### C BC #### [facility] [address] [address] [address] Eusebia Moralez WBC 7.0 103/ul Normal 4.0-11.0 [facility] [place] [facility] Comment on above: Performed By: #### C BC #### [facility] [address] [address] [address] Eusebia Moralez FREE THYROXINE INDEX T7on FTI 2.45 Normal 1.30-4.50 [facility] Comment on above: Performed By: #### T SH, BNP, CMP, T7, LIPID ####[facility] [address] [address]Dr. Eusebia Moralez T3U 35.0 % Normal 30.0-39.0 [facility] Comment on above: Performed By: #### T SH, BNP, CMP, T7, LIPID ####[facility] [address] [id number] Moralez T4 [Mass/Vol] 7.00 ug/dL Normal 4.80-13.90 [facility] Comment on above: Performed By: #### T SH, BNP, CMP, T7, LIPID ####[facility] [address] [place], [place] [address]KlRadha Moralez IRONon 01-14-2022 Iron [Mass/Vol] 58.0 ug/dL Normal 50.0-170.0 [facility] Comment on above: Performed By: #### I MONIE #### [facility] [address] [place], [place] [address] Dr. Eusebia Moralez LIPID PROFILEon 01-14-2022 CHOL-HDL RATIO NORM SEE BELOW Normal [facility] Comment on above: Result Comment: 3.3 - 4.4 LOW RISK 4.4 - 7.1 AVERAGE RISK 7.1 - 11.0 MODERATE RISK >11.0 HIGH RISK Performed By: #### T SH, BNP, CMP, T7, LIPID ####[facility] [address] [id number]. Eusebia Moralez Cholesterol [Mass/Vol] 186 mg/dL Normal <=200 [facility] Comment on above: Performed By: #### T SH, BNP, CMP, T7, LIPID ####[facility] [address] [place], [place] [address]Yz. Eusebia Moralez Cholesterol in HDL [Mass/Vol] 45 mg/dL Normal 40-60 [facility] [place] [facility] Comment on above: Performed By: #### T SH, BNP, CMP, T7, LIPID ####[facility] [address] [place], [place] [address]Zv. Eusebia Moralez Cholesterol in LDL [Mass/Vol] 118.4 mg/dL Normal [facility] [place] [facility] Comment on above: Performed By: #### T SH, BNP, CMP, T7, LIPID ####[facility] [address] [place], [place] [address]RjRadha Moralez Cholesterol.total/Latoya sterol in HDL [Mass ratio] 4.1 {ratio} Normal [facility] [place] [facility] Comment on above: Performed By: #### T SH, BNP, CMP, T7, LIPID ####[facility] [address] [id number]. Eusebia Moralez HDL NORMAL > or = 60 mg/dl - LO W CARDIOVASCULAR RISK <40 mg/dl - HIGH CARDIOVASCULAR RISK Normal [facility] [place] [facility] Comment on above: Performed By: #### T SH, BNP, CMP, T7, LIPID ####[facility] [id number] [place] [address]Dr. Eusebia Moralez LDL CALC NORMAL SEE BELOW Normal [facility] Comment on above: Result Comment: <100 mg/dl OPTIMAL 100 - 129 mg/dl NEAR OR ABOVE OPTIMAL 130 - 159 mg/dl BORDERLINE HIGH 160 - 189 mg/dl HIGH >190 mg/dl VERY HIGH Performed By: #### T SH, BNP, CMP, T7, LIPID ####[facility] [id number] [place] [id number]. Eusebia Moralez Triglyceride [Mass/Vol] 113 mg/dL Normal <=150 [facility] Comment on above: Performed By: #### T SH, BNP, CMP, T7, LIPID ####[facility] [id number] [place] [address]DrRadha Moralez VLDL CALC 22.6 mg/dL Normal [facility] [place] [facility] Comment on above: Performed By: #### T SH, BNP, CMP, T7, LIPID ####[facility] [id number] [place] [id number] Moralez PROF 14(COMP METB)on 022 Albumin [Mass/Vol] 3.3 g/dL Critically low 3.4-5.0 Th [facility] Comment on above: Performed By: #### T SH, BNP, CMP, T7, LIPID #### [facility] [address] [address] [address] Eusebia Moralez Albumin/Globulin [Mass ratio] 0.9 {ratio} Normal [facility] [place] [facility] Comment on above: Performed By: #### T SH, BNP, CMP, T7, LIPID #### [facility] [address] [address] [address] Eusebia Moralez ALP [Catalytic activity/Vol] 81 U/L Normal 46-116 [facility] [place] [facility] Comment on above: Performed By: #### T SH, BNP, CMP, T7, LIPID #### [facility] [address] [place] [address] Dr. Eusebia Moralez ALT [Catalytic activity/Vol] 19 U/L Normal 14-59 [facility] [place] [facility] Comment on above: Performed By: #### T SH, BNP, CMP, T7, LIPID #### [facility] [address] [place] [address] Dr. Eusebia Moralez Anion gap [Moles/Vol] 12.3 mmol/L Normal [facility] Comment on above: Performed By: #### T SH, BNP, CMP, T7, LIPID #### [facility] [address] [place] [address] Dr. Eusebia Moralez AST [Catalytic activity/Vol] 12 U/L Critically low 15-37 [facility] [place] [facility] Comment on above: Performed By: #### T SH, BNP, CMP, T7, LIPID #### [facility] [address] [place] [address] Dr. Eusebia Moralez Bilirubin [Mass/Vol] 0.4 mg/dL Normal 0.2-1.0 [facility] [place] [facility] Comment on above: Performed By: #### T SH, BNP, CMP, T7, LIPID #### [facility] [address] [place] [address] Dr. Eusebia Moralez Calcium [Mass/Vol] 8.9 mg/dL Normal 8.5-10.1 [facility] [place] [facility] Comment on above: Performed By: #### T SH, BNP, CMP, T7, LIPID #### [facility] [address] [place] [address] Dr. Eusebia Moralez Chloride [Moles/Vol] 106 mmol/L Normal 98-107 [facility] [place] [facility] Comment on above: Performed By: #### T SH, BNP, CMP, T7, LIPID #### [facility] [address] [place] [address] Dr. Eusebia Moralez CO2 [Moles/Vol] 27.4 mmol/L Normal 21.0-32.[address] [facility] Comment on above: Performed By: #### T SH, BNP, CMP, T7, LIPID #### [facility] [address] [place] [address] Dr. Eusebia Moralez Creatinine [Mass/Vol] 1.51 mg/dL Critically high 0.55-1.02 [facility] [place] [facility] Comment on above: Performed By: #### T SH, BNP, CMP, T7, LIPID #### [facility] [address] [place] [address] Dr. Eusebia Moralez EGFR-AF HAITIAN 41 mL/min/1.73m2 Critically low >=60 [facility] [place] [facility] Comment on above: Performed By: #### T SH, BNP, CMP, T7, LIPID #### [facility] [address] [place] [address] Dr. Eusebia Moralez EGFR-NON AF HAITIAN 34 mL/min/1.73m2 Critically low >=60 [facility] [place] [facility] Comment on above: Performed By: #### T SH, BNP, CMP, T7, LIPID #### [facility] [address] [place] [address] Dr. Eusebia Moralez Globulin (S) [Mass/Vol] 3.5 g/dL Normal [facility] Comment on above: Performed By: #### T SH, BNP, CMP, T7, LIPID #### [facility] [address] [place] [address] Dr. Eusebia Moralez Glucose [Mass/Vol] 129 mg/dL Critically high 74-106 [facility] Comment on above: Performed By: #### T SH, BNP, CMP, T7, LIPID #### [facility] [address] [place] [address] Dr. Eusebia Moralez Potassium [Moles/Vol] 4.7 mmol/L Normal 3.5-5.1 [facility] [place] [facility] Comment on above: Performed By: #### T SH, BNP, CMP, T7, LIPID #### [facility] [address] [place] [address] Dr. Eusebia Moralez Protein [Mass/Vol] 6.8 g/dL Normal 6.4-8.2 [facility] [place] [facility] Comment on above: Performed By: #### T SH, BNP, CMP, T7, LIPID #### [facility] [address] [place], [place] [address] Dr. Eusebia Moralez Sodium [Moles/Vol] 141 mmol/L Normal 136-145 [facility] [place] [facility] Comment on above: Performed By: #### T SH, BNP, CMP, T7, LIPID #### [facility] [address] [place], [place] [address] Dr. Eusebia Moralez Urea nitrogen [Mass/Vol] 37.0 mg/dL Critically high 7.0-18.0 [facility] [place] [facility] Comment on above: Performed By: #### T SH, BNP, CMP, T7, LIPID #### [facility] [address] [address] [address] Eusebia Moralez Urea nitrogen/Creatinine [Mass ratio] 24.5 mg/mg Normal [facility] [place] [facility] Comment on above: Performed By: #### T SH, BNP, CMP, T7, LIPID #### [facility] [address] [address] [address] Eusebia Moralez TSHon 01-14-2022 TSH 0.068 uIU/mL Critically low 0.358-3.740 [facility] [place] [facility] Comment on above: Performed By: #### T SH, BNP, CMP, T7, LIPID ####[facility] [address] [place], [place] [address]CvDr. Eusebia Moralez Covid-19 PCR (CVDTB)on 10-13 SARS-CoV-2 (COVID-19) RNA DEREK+probe Ql (Unsp spec) Not detected Normal NOT DETECTED [facility] [place] [facility] Comment on above: Result Comment: This test is not yet approved or cleared by the [place] FDA. When there are no FDA-approved or cleared tests available, and other criteria are met, FDA can make tests available under an emergency access mechanism called an Emergency Use Authorization (EUA). The EUA for this test is supported by the [employer] Sales Representative of Health and Human Service's (HHS's) declaration [...] consistent with SARS-CoV-2. Performed By: #### [facility] ####[facility] [address] [place], [place] [address]No. Eusebia Moralez MRI LSPINE WO CONon 10-11-19 22 MRI LSPINE WO CON EXAMINATION: MRI LSP [...] AMBAR MAYA Date: 2021-10-10 07:29 Normal [facility] Pulmonary Progress Noteo n 09-13-2020 [facility] Pulmonary Progress Note [facility] Pt Name: VERO SADLER [address] [place] [address] MR#: [id number] [place] [id number] ACCT: [id number] PROGRESS NOTE- Pulmonary : [facility] Date of Service: 09/13/20 Text NAME: VERO SADLER MR#: [id number] DATE OF SERVICE: 09/13/2020 OUTPATIENT PULMONARY PROGRESS [...] disease, severity unknown. We will try to [facility] Pt [facility] [address] MR#: [id number] [place] [id number] ACCT: [id number] PROGRESS NOTE- Pulmonary : [facility] [...] postoperative management if needed. TIM TOSCANO MD DI/MODL/[id number] 2 CC: Dr. Rito Guerrero MD eSign Date and Time Tim Toscano MD Signature on File 09/26/20 1046 Normal [facility] GLYCO HEMOon 08-23-2020 HbA1c (Bld) [Mass fraction] 5.3 % Normal [facility] Comment on above: Result Comment: Milagro vidal Diagnosis HbA1c (%) --------- Diabetic > 6.4 Prediabetes 5.7-6.4 Normal < 5.7 Performed By: #### L 631.45413 #### Test performed at: [place] [address] CBC W/DIFFon 08-22-2020 BASO ABS 0.0 K/uL Normal 0.0-0.2 [facility] Comment on above: Performed By: #### L 200.03019 #### Test performed at: [address] [address] Basophils/100 WBC (Bld) 0.5 % Normal S [facility] Comment on above: Performed By: #### L 200.65773 #### Test performed at: [address] [address] EOS ABS 0.1 K/uL Normal 0.0-0.5 [facility] Comment on above: Performed By: #### L 200.24978 #### Test performed at: [address] [address] Eosinophils/100 WBC (Bld) 1.2 % Normal [facility] Comment on above: Performed By: #### L 200.59979 #### Test performed at: [address] [address] Erythrocyte distribution width (RBC) [Ratio] 12.8 % Normal 11.5-14.5 [facility] Comment on above: Performed By: #### L 200.64276 #### Test performed at: [address] [address] Hematocrit (Bld) [Volume fraction] 40.1 % Normal 36.0-48.0 [facility] Comment on above: Performed By: #### L 200.89952 #### Test performed at: [address] [address] Hemoglobin (Bld) [Mass/Vol] 12.4 g/dL Normal 12.0-15.0 [facility] Comment on above: Performed By: #### L 200.85342 #### Test performed at: [address] [address] IG % 0.3 % Normal [facility] Comment on above: Performed By: #### L 200.97122 #### Test performed at: [address] [address] IG ABS 0.02 K/uL Normal 0-0.05 [facility] Comment on above: Performed By: #### L 200.17441 #### Test performed at: [address] [address] Lymphocytes (Bld) [#/Vol] 1.3 10*3/uL Normal 1.2-3.5 [facility] Comment on above: Performed By: #### L 200.94915 #### Test performed at: [place] [address] Lymphocytes/100 WBC (Bld) 16.9 % Normal [facility] Comment on above: Performed By: #### L 200.87900 #### Test performed at: [place] [id number] MCH (RBC) [Entitic mass] 29.0 pg Normal 25.4-34.6 [facility] Comment on above: Performed By: #### L 200.17206 #### Test performed at: [address] [address] MCHC (RBC) [Mass/Vol] 30.9 g/dL Low 31.5-36.5 [facility] Comment on above: Performed By: #### L 200.04468 #### Test performed at: [address] [address] MCV (RBC) [Entitic vol] 93.7 fL Normal 79.0-98.0 S [facility] Comment on above: Performed By: #### L 200.78983 #### Test performed at: [address] [address] MONO ABS 0.8 K/uL Normal 0.0-1.0 [facility] Comment on above: Performed By: #### L 200.23224 #### Test performed at: [address] [address] Monocytes/100 WBC (Bld) 9.7 % Normal [facility] Comment on above: Performed By: #### L 200.56868 #### Test performed at: [address] [address] NEUTROPHIL ABS 5.5 K/uL Normal 1.4-6.6 [facility] Comment on above: Performed By: #### L 200.45661 #### Test performed at: [address] [address] Neutrophils/100 WBC (Bld) 71.4 % Normal [facility] Comment on above: Performed By: #### L 200.16881 #### Test performed at: [address] [address] NRBC # 0.000 K/uL Normal 0-0.012 [facility] Comment on above: Performed By: #### L 200.77953 #### Test performed at: [address] [address] NRBC % 0.0 /100 WBC Normal 0-0.2 [facility] Comment on above: Performed By: #### L 200.28070 #### Test performed at: [address] [address] Platelet mean volume (Bld) [Entitic vol] 10.1 fL Normal 8.7-12.4 [facility] Comment on above: Performed By: #### L 200.20302 #### Test performed at: [address] [address] Platelets (Bld) [#/Vol] 236 10*3/uL Normal 140-440 [facility] Comment on above: Performed By: #### L 200.64901 #### Test performed at: [address] [address] RBC (Bld) [#/Vol] 4.28 10*6/uL Normal 3.5-5.5 [facility] Comment on above: Performed By: #### L 200.01400 #### Test performed at: [address] [address] WBC (Bld) [#/Vol] 7.7 10*3/uL Normal 3.9-11.[address] [facility] Comment on above: Performed By: #### L 200.06201 #### Test performed at: [place] [address] CHEST PA/AP & LATERAL OR 2 V WSon 08-22-2020 CHEST PA/AP & LATERAL OR 2 VWS STUDY: CHEST PA/AP LATERAL OR 2 VWS; 08/22/2020 2:35 pm INDICATION: COPD. COMPARISON: None. ACCESSION NUMBER(S): [id number] ORDERING CLINICIAN: Ovidio Baez FINDINGS: The lungs are clear without pleural effusion. Borderline cardiomegaly. Otherwise unremarkable mediastinum, eron, and pulmonary vasculature. Thoracic degenerative changes are present. IMPRESSION: No active disease in the chest. Normal [facility] COMP META PANELon 08-22-2020 Albumin [Mass/Vol] 3.4 g/dL Normal 3.4-5.[address] [facility] Comment on above: Performed By: #### L 500.57521, L500.34626, L500.83846 #### Test performed at: [address] [address] ALK PHOS TOTAL 88 U/L Normal 45-117 [facility] Comment on above: Performed By: #### L 500.74465, L500.75993, L500.47748 #### Test performed at: [place] [id number] ALT [Catalytic activity/Vol] 17 U/L Normal 13-61 [facility] Comment on above: Performed By: #### L 500.92574, L500.09661, L500.24643 #### Test performed at: [address] [address] AST [Catalytic activity/Vol] 12 U/L Low 15-37 [facility] Comment on above: Performed By: #### L 500.97383, L500.23249, L500.55820 #### Test performed at: [address] [address] BILI TOTAL 0.5 mg/dL Normal 0.2-1.0 [facility] Comment on above: Performed By: #### L 500.76001, L500.40802, L500.84795 #### Test performed at: [address] [address] Calcium [Mass/Vol] 9.0 mg/dL Normal 8.5-10.[address] [facility] Comment on above: Performed By: #### L 500.29406, L500.46748, L500.84284 #### Test performed at: [address] [address] Chloride [Moles/Vol] 107 mmol/L Normal 98-107 [facility] Comment on above: Performed By: #### L 500.18860, L500.26199, L500.97333 #### Test performed at: [address] [address] CO2 [Moles/Vol] 29 mmol/L Normal 21-32 [facility] Comment on above: Performed By: #### L 500.59743, L500.63532, L500.06723 #### Test performed at: [address] [address] Creatinine [Mass/Vol] 1.280 mg/dL High 0.550-1.020 [facility] Comment on above: Performed By: #### L 500.68594, L500.05765, L500.81169 #### Test performed at: [address] [address] Glucose [Mass/Vol] 90 mg/dL Normal 70-[address] [facility] Comment on above: Result Comment: Fast ing GLUCOSE reference range has been updated per (ADA) [place] [employer]'s recommendation. 06/07/2018 Performed By: #### L 500.34919, L500.87709, L500.08202 #### Test performed at: [address] [address] Potassium [Moles/Vol] 4.4 mmol/L Normal 3.5-5.1 [facility] Comment on above: Performed By: #### L 500.55762, L500.64268, L500.49292 #### Test performed at: [address] [address] Protein [Mass/Vol] 6.8 g/dL Normal 6.4-8.[address] [facility] Comment on above: Performed By: #### L 500.58586, L500.53406, L500.98898 #### Test performed at: [address] [address] Sodium [Moles/Vol] 142 mmol/L Normal 136-[address] [facility] Comment on above: Performed By: #### L 500.58808, L500.57934, L500.59651 #### Test performed at: [address] [address] Urea nitrogen [Mass/Vol] 21 mg/dL High 7-18 [facility] Comment on above: Performed By: #### L 500.57817, L500.72759, L500.10489 #### Test performed at: [place] [address] GFR ESTIMATEon 08-22-2020 IF AMER 50 Low > 60 [facility] Comment on above: Result Comment: eGFR (Estimated GFR) Units of measure:mL/min/1.73 meters sq. *CALCULATION REVISED 01/01/2015;IDMS-traceable MDRD equation eGFR is derived from the reexpressed MDRD Study equation using the following parameters: serum creatinine, age, gender and race. An eGFR<60 mL/min/1.73m2 for >3 months is consistent with chronic kidney disease. Refer to KDOQI guidelines for clinical interpretation. Performed By: #### L 500.71620, L500.34955, L500.66450 #### Test performed at: [place] [address] IF non-AFR AMER 41 Low > 60 [facility] Comment on above: Performed By: #### L 500.69018, L500.66553, L500.95047 #### Test performed at: [place] [address] TSH ULTRA SENSon 08-22-2020 TSH ULTRA SENS < 0.005 Low 0.358-3.74 [facility] Comment on above: Performed By: #### L 500.99044, L500.70687, L500.30986 #### Test performed at: [place] [address] LUMB SP COMP W FLEX/EXT 6 VW Son 07-23-2020 LUMB SP COMP W FLEX/EXT 6 VWS STUDY: LUMB SP COMP W FLEX/EXT 6 VWS ; 07/23/2020 9:01 am INDICATION: PAIN. COMPARISON: None. ACCESSION NUMBER(S): [id number] ORDERING CLINICIAN: Sacha Guerrero FINDINGS: No fracture [...] of the lumbar spine without instability. Normal [facility] Vital Signs Date Time Vital Sign Value Performing Clinician Facility 10-05-2024 11:070400 Body height 162.56 cm Debbie Bhatia MD Work Phone: [facility] 10-05-2024 11:070400 Body mass index (BMI) [Ratio] 49.8 kg/m2 Debbie Bhatia MD Work Phone: [facility] 10-05-2024 11:07040 Body weight 131.54 kg Debbie Bhatia MD Work Phone: [facility] 10-05-2024 11:07-0400 Diastolic blood pressure 71 mm[Hg] Debbie Bhatia MD Work Phone: [facility] 10-05-2024 11:07-0400 Heart rate 79 /min Debbie Bhatia MD Work Phone: [facility] 10-05-2024 11:07-0400 Respiratory rate 16 /min Debbie Bhatia MD Work Phone: [facility] 10-05-2024 11:07-0400 SaO2% (BldA) [Mass fraction] 97 % Debbie Bhatia MD Work Phone: [facility] 10-05-2024 11:07-0400 Systolic blood pressure 112 mm[Hg] Debbie Bhatia MD Work Phone: [facility] 09-11-2024 13:21-0400 Body height 162.6 cm John Mathews MD Work Phone: [facility] 09-11-2024 13:21-0400 Body mass index (BMI) [Ratio] 50.46 kg/m2 John Mathews MD Work Phone: [facility] 09-11-2024 13:21-0400 Body weight 133.36 kg John Mathews MD Work Phone: [facility] 09-11-2024 13:21-0400 Diastolic blood pressure 65 mm[Hg] John Mathews MD Work Phone: [facility] 09-11-2024 13:21-0400 Heart rate 84 /min John Mathews MD Work Phone: [facility] 09-11-2024 13:21-0400 Systolic blood pressure 104 mm[Hg] John Mathews MD Work Phone: [facility] 08-09-2024 09:39-0400 Body height 162.6 cm John Mathews MD Work Phone: [facility] 08-09-2024 09:39-0400 Body mass index (BMI) [Ratio] 50.46 kg/m2 John Mathews MD Work Phone: [facility] 08-09-2024 09:39-0400 Body weight 133.36 kg John Mathews MD Work Phone: [facility] 08-09-2024 09:39-0400 Diastolic blood pressure 61 mm[Hg] John Mathews MD Work Phone: [facility] 08-09-2024 09:39-0400 Heart rate 80 /min John Mathews MD Work Phone: [facility] 08-09-2024 09:39-0400 Systolic blood pressure 105 mm[Hg] John Mathews MD Work Phone: [facility] 07-19-2024 14:20-0400 Diastolic blood pressure 60 mm[Hg] Debbie Bhatia MD Work Phone: [facility] 07-19-2024 14:20-0400 Heart rate 67 /min Debbie Bhatia MD Work Phone: [facility] 07-19-2024 14:20-0400 Respiratory rate 18 /min Debbie Bhatia MD Work Phone: [facility] 07-19-2024 14:20-0400 SaO2% (BldA) [Mass fraction] 98 % Debbie Bhatia MD Work Phone: [facility] 07-19-2024 14:20-0400 Systolic blood pressure 132 mm[Hg] Debbie Bhatia MD Work Phone: [facility] 07-19-2024 11:23-0400 Body height 162.56 cm Debbie Bhatia MD Work Phone: [facility] 07-19-2024 11:23-0400 Body weight 133.81 kg Debbie Bhatia MD Work Phone: [facility] 07-13-2024 10:50-0400 Blood Pressure Location ROSETTA NKANSAH-AMANKRA [facility] 07-13-2024 10:50-0400 Diastolic blood pressure 82 mm[Hg] ROSETTA NKANSAH-AMANKRA [facility] 07-13-2024 10:50-0400 Heart rate 74 /min ROSETTA NKANSAH-AMANKRA [facility] 07-13-2024 10:50-0400 SaO2% (BldA) [Mass fraction] 94 % ROSETTA NKANSAH-AMANKRA [facility] 07-13-2024 10:50-0400 Systolic blood pressure 170 mm[Hg] ROSETTA NKANSAH-AMANKRA [facility] 07-13-2024 09:45-0400 Blood Pressure Location ROSETTA NKANSAH-AMANKRA [facility] 07-13-2024 09:45-0400 Body temperature 97.34 [degF] ROSETTA NKANSAH-AMANKRA [facility] 07-13-2024 09:45-0400 Diastolic blood pressure 78 mm[Hg] ROSETTA NKANSAH-AMANKRA [facility] 07-13-2024 09:45-0400 Heart rate 67 /min ROSETTA NKANSAH-AMANKRA [facility] 07-13-2024 09:45-0400 Mean blood pressure 109 mm[Hg] ROSETTA NKANSAH-AMANKRA [facility] 07-13-2024 09:45-0400 Respiratory rate 13 /min ROSETTA NKANSAH-AMANKRA [facility] 07-13-2024 09:45-0400 SaO2% (BldA) [Mass fraction] 93 % ROSETTA NKANSAH-AMANKRA [facility] 07-13-2024 09:45-0400 Systolic blood pressure 170 mm[Hg] ROSETTA NKANSAH-AMANKRA [facility] 07-13-2024 09:44-0400 SaO2% (BldA) [Mass fraction] 91 % ROSETTA NKANSAH-AMANKRA [facility] 07-13-2024 09:30-0400 Respiratory rate 13 /min ROSETTA NKANSAH-AMANKRA [facility] 07-13-2024 09:30-0400 Heart rate 68 /min ROSETTA NKANSAH-AMANKRA [facility] 07-13-2024 09:30-0400 Blood Pressure Location ROSETTA NKANSAH-AMANKRA [facility] 07-13-2024 09:30-0400 Diastolic blood pressure 71 mm[Hg] ROSETTA NKANSAH-AMANKRA [facility] 07-13-2024 09:30-0400 Mean blood pressure 98 mm[Hg] ROSETTA NKANSAH-AMANKRA [facility] 07-13-2024 09:30-0400 Systolic blood pressure 153 mm[Hg] ROSETTA NKANSAH-AMANKRA [facility] 07-13-2024 09:25-0400 Respiratory rate 18 /min ROSETTA NKANSAH-AMANKRA [facility] 07-13-2024 09:25-0400 Mean blood pressure 98 mm[Hg] ROSETTA NKANSAH-AMANKRA [facility] 07-13-2024 09:20-0400 Respiratory rate 12 /min ROSETTA NKANSAH-AMANKRA [facility] 07-13-2024 09:15-0400 Body temperature 97.16 [degF] ROSETTA NKANSAH-AMANKRA [facility] 07-13-2024 09:15-0400 Respiratory rate 12 /min ROSETTA NKANSAH-AMANKRA [facility] 07-13-2024 07:27-0400 Mean blood pressure 113 mm[Hg] ROSETTA NKANSAH-AMANKRA [facility] 07-13-2024 07:26-0400 Mean blood pressure 121 mm[Hg] ROSETTA NKANSAH-AMANKRA [facility] 07-13-2024 07:24-0400 Respiratory rate 20 /min ROSETTA NKANSAH-AMANKRA [facility] 07-13-2024 07:24-0400 Body temperature 97.7 [degF] ROSETTA NKANSAH-AMANKRA [facility] 06-27-2024 11:14-0400 Body height 160.02 cm [facility] 06-27-2024 11:14-0400 Body mass index (BMI) [Ratio] 53 kg/m2 [facility] 06-27-2024 11:14-0400 Body temperature 97.6 [degF] [facility] 06-27-2024 11:14-0400 Body weight 135.79 kg [facility] 06-27-2024 11:14-0400 Diastolic blood pressure 77 mm[Hg] [facility] 06-27-2024 11:14-0400 Heart rate 101 /min [facility] 06-27-2024 11:14-0400 Respiratory rate 18 /min [facility] 06-27-2024 11:14-0400 SaO2% (BldA) [Mass fraction] 93 % [facility] 06-27-2024 11:14-0400 Systolic blood pressure 157 mm[Hg] [facility] 06-26-2024 13:31-0400 Heart rate 67 /min ROSETTA NKANSAH-AMANKRA [facility] 06-26-2024 13:31-0400 SaO2% (BldA) [Mass fraction] 94 % ROSETTA NKANSAH-AMANKRA [facility] 06-26-2024 13:30-0400 Respiratory rate 20 /min ROSETTA NKANSAH-AMANKRA [facility] 06-20-2024 09:36-0400 Body height 162.6 cm John Mathews MD Work Phone: [facility] 06-20-2024 09:36-0400 Body mass index (BMI) [Ratio] 50.46 kg/m2 John Mathews MD Work Phone: [facility] 06-20-2024 09:36-0400 Body weight 133.36 kg John Mathews MD Work Phone: [facility] 06-20-2024 09:36-0400 Diastolic blood pressure 78 mm[Hg] John Mathews MD Work Phone: [facility] 06-20-2024 09:36-0400 Systolic blood pressure 175 mm[Hg] John Mathews MD Work Phone: [facility] 05-09-2024 08:38-0500 Body height 162.6 cm John Mathews MD Work Phone: [facility] 05-09-2024 08:38-0500 Body mass index (BMI) [Ratio] 50.81 kg/m2 John Mathews MD Work Phone: [facility] 05-09-2024 08:38-0500 Body weight 134.26 kg John Mathews MD Work Phone: [facility] 05-09-2024 08:38-0500 Diastolic blood pressure 90 mm[Hg] John Mathews MD Work Phone: [facility] 05-09-2024 08:38-0500 Heart rate 87 /min John Mathews MD Work Phone: [facility] 05-09-2024 08:38-0500 Systolic blood pressure 170 mm[Hg] John Mathews MD Work Phone: [facility] 03-31-2024 14:50-0500 Blood Pressure Location ROSETTA NKANSAH-AMANKRA [facility] 03-31-2024 14:50-0500 Diastolic blood pressure 82 mm[Hg] ROSETTA NKANSAH-AMANKRA [facility] 03-31-2024 14:50-0500 Heart rate 86 /min ROSETTA NKANSAH-AMANKRA [facility] 03-31-2024 14:50-0500 Respiratory rate 16 /min ROSETTA NKANSAH-AMANKRA [facility] 03-31-2024 14:50-0500 Systolic blood pressure 152 mm[Hg] ROSETTA MENEDZ [facility] 01-06-2024 13:02-0400 Body height 162.56 cm [facility] 01-06-2024 13:02-0400 Body mass index (BMI) [Ratio] 50.5 kg/m2 [facility] 01-06-2024 13:02-0400 Body temperature 96.3 [degF] [facility] 01-06-2024 13:02-0400 Body weight 133.46 kg [facility] 01-06-2024 13:02-0400 Diastolic blood pressure 90 mm[Hg] [facility] 01-06-2024 13:02-0400 Heart rate 81 /min [facility] 01-06-2024 13:02-0400 Respiratory rate 18 /min [facility] 01-06-2024 13:02-0400 SaO2% (BldA) [Mass fraction] 98 % [facility] 01-06-2024 13:02-0400 Systolic blood pressure 179 mm[Hg] [facility] Encounters Encounter Date Encounter Type Care Provider Facility Start: 02-20-2025 ambulatory MD ROSETTA MENDEZ Facility:[facility] Start: 10-05-2024 End: 10-05-2024 ambulatory Debbie Bhatia MD Work Phone: [facility] Work Phone: Start: 10-05-2024 End: 10-05-2024 Patient encounter procedure Lizette Schaffer MD -[facility] Work Phone: Start: 09-25-2024 End: 09-25-2024 ambulatory Cande Garcia MD Facility:[facility] Start: 09-22-2024 End: 09-22-2024 Patient encounter procedure Lizette Schaffer MD -[facility] Work Phone: Start: 09-22-2024 End: 09-22-2024 ambulatory Debbie Bhatia MD Work Phone: [facility] Work Phone: Start: 09-11-2024 End: 09-11-2024 Bamhectoro flowsheet John Mathews MD Work Phone: [facility] Start: 09-11-2024 End: 09-11-2024 Bamboo flowsheet John Mathews MD Work Phone: [facility] Start: 09-11-2024 End: 09-11-2024 Office outpatient visit 15 minutes John Mathews MD Work Phone: [facility] Comment on above: ETD (Eustachian tube dysfunction), right (Primary Dx); Chronic mastoiditis, right Start: 09-11-2024 End: 09-11-2024 ambulatory JOHN MAHTEWS Not Available Start: 08-25-2024 End: 08-25-2024 ambulatory DEBBIE BHATIA [facility] Start: 08-22-2024 ambulatory [facility] Start: 08-21-2024 ambulatory [facility] Start: 08-21-2024 End: 08-21-2024 ambulatory MD ROSETTA MENDEZ Facility:[facility] Start: 08-21-2024 End: 08-21-2024 Patient encounter procedure ROSETTA MENDEZ [facility] Start: 08-15-2024 End: 08-15-2024 Clinisync Result Encounter John Mathews MD Work Phone: [facility] Unsolicited Start: 08-15-2024 End: 08-15-2024 Clinisync Result Encounter John Mathews MD Work Phone: [facility] Start: 08-09-2024 End: 08-09-2024 Bamjalil Mathews MD Work Phone: [facility] Start: 08-09-2024 End: 08-09-2024 Ankit Mathews MD Work Phone: [facility] Start: 08-09-2024 End: 08-09-2024 Office outpatient visit 25 minutes John Mathews MD Work Phone: [facility] Comment on above: ETD (Eustachian tube dysfunction), right (Primary Dx); CSF otorrhea; Chronic myringitis of right ear Start: 08-09-2024 End: 08-09-2024 ambulatory JOHN MATHEWS Not Available Start: 07-19-2024 Non-patient / Non-visit Yong Bhatia MD Work Phone: [facility] Work Phone: Start: 07-19-2024 End: 07-19-2024 Admission to same day surgery center Debbie Bhatia MD Work Phone: [facility] Work Phone: Start: 07-19-2024 End: 07-19-2024 ambulatory Debbie Bhatia MD Work Phone: [facility] Work Phone: Start: 07-18-2024 ambulatory JOSEY KWOK [facility] Start: 07-13-2024 End: 07-13-2024 Admission to same day surgery center ROSETTA MENDEZ [facility] Start: 07-13-2024 End: 07-13-2024 ambulatory MD ROSETTA MENDEZ Facility:[facility] Start: 06-27-2024 End: 06-27-2024 ambulatory [facility] Work Phone: Start: 06-27-2024 End: 06-27-2024 Patient encounter procedure [facility] Work Phone: Start: 06-26-2024 End: 06-26-2024 Clinisync Result Encounter John Mathews MD Work Phone: [facility] Unsolicited Start: 06-26-2024 End: 06-26-2024 Clinisync Result Encounter John Mathews MD Work Phone: [facility] Unsolic[facility] Start: 06-26-2024 End: 06-26-2024 ambulatory ROSETTA MENDEZ Facility:[facility] Start: 06-26-2024 End: 06-26-2024 Patient encounter procedure ROSETTA MENDEZ [facility] Start: 06-20-2024 End: 06-20-2024 Bamboo flowsheet John Mathews MD Work Phone: [facility] Start: 06-20-2024 End: 06-20-2024 Bamboo flowsheet John Mathews MD Work Phone: [facility] Start: 06-20-2024 Non-patient / Non-visit [facility] Work Phone: Start: 06-20-2024 [...] Available Start: 05-19-2024 End: 05-19-2024 ambulatory ROSETTA KAROLYN-AMANKRA Facility:[facility] Start: 05-09-2024 End: 05-09-2024 Bamboo flowsheet John Mathews MD Work Phone: [facility] Start: 05-09-2024 End: 05-09-2024 Bamboo flowsheet John Mathews MD Work Phone: [facility] Start: 05-09-2024 End: 05-09-2024 Clinisync Result Encounter John Mathews MD Work Phone: [facility]olic[facility] Start: 05-09-2024 End: 05-09-2024 ambulatory [facility] Start: 05-09-2024 End: 05-09-2024 Office outpatient new 45 minutes John Mathews MD Work Phone: [facility] Comment on above: OME (otitis media wi th effusion), right (Primary Dx); Nonintractable headache, unspecified chronicity pattern, unspecified headache type Start: 05-09-2024 End: 05-09-2024 ambulatory JOHN MATHEWS Not Available Start: 05-05-2024 End: 05-05-2024 ambulatory ROSETTA MENDEZ Facility:[facility] Start: 05-05-2024 End: 05-05-2024 Patient encounter procedure ROSETTA MENDEZ [facility] Start: 05-01-2024 End: 05-01-2024 ambulatory Cande Garcia MD Facility:[facility] Start: 03-31-2024 End: 03-31-2024 ambulatory Debbie Griffithy Facility:[facility] Start: 03-31-2024 End: 03-31-2024 Patient encounter procedure ROSETTA MENDEZ [facility] Start: 02-22-2024 ambulatory ROSETTA MENDEZ Facility:[facility] Start: 02-14-2024 End: 02-14-2024 ambulatory Cande Garcia MD Facility:[facility] Start: 02-08-2024 End: 02-08-2024 ambulatory [facility] Start: 01-26-2024 End: 01-26-2024 ambulatory [facility] Start: 01-06-2024 End: 01-06-2024 ambulatory [facility] Work Phone: Start: 01-06-2024 End: 01-06-2024 Patient encounter procedure [facility] [place] Work Phone: Start: 11-23-2023 End: 11-23-2023 Encounter for other specified special examinations RYAN López [facility] Start: 11-23-2023 End: 11-23-2023 [facility] Start: 10-26-2023 End: 10-26-2023 ambulatory [facility] Start: 07-17-2022 End: 07-18-2022 ambulatory [...] Start: 01-14-2022 End: 01-15-[address] DEBBIE HBATIA . Facility: Start: 10-28-2021 End: 10-28-[address] DEBBIE BHATIA . Facility:[facility] Start: 10-09-2021 End: 10-10-[address] DEBBIE BHATIA . Facility:[facility] Start: 08-12-2021 End: 08-12-[address] DEBBIE BHATIA . Facility:[facility] Start: 07-28-[address] DEBBIE BHATIA . Facili ty:[facility] Start: 09-29-2016 End: 09-30-2016 Ambulatory DEFAULT PHYSICIAN Facility:[facility] Procedures Date Procedure Procedure Detail Performing Clinician Start: 09-22-2024 Urine culture Debbie moy MD Work Phone: Start: 09-22-2024 Serum immunofixation Do sissy Bhatia MD Work Phone: Comment on above: No monoclonality det ected. Start: 08-15-2024 Ct orbit sella/post fossa/ear w/o contrast matrl John Mathews MD Work Phone: Start: 07-19-2024 Colonoscopy Debbie caceres MD Work Phone: Start: 07-13-2024 Cystoscopy ROSETTA FELICIANO Start: 06-26-2024 [facility] APTT John wells MD Work Phone: Start: 06-26-2024 SRMCOH PROTHROMBIN T DES INR W/O COUM John Mathews MD Work Phone: Start: 05-19-2024 Flexible cystoscope (physical object) ROSETTA MENDEZ Start: 05-09-2024 Radex sinuses parana roland compl minimum 3 views John Mathews MD Work Phone: Start: 02-09-2023 End: 02-09-2023 Colonoscopy ROSETTA MATUTE Start: 07-06-2018 Colonoscopy ROSETTA FELICIANO Cataract extraction and insertion of intraocular lens ROSETTA MENDEZ ft (qualifier value) ROSETTA MENDEZ H/O: hysterectomy ROSETTA FELICIANO Hysterectomy ROSETTA CABRERA Procedure ROSETTA CABRERA Total hysterectomy ROSETTA CHARLTON Plan of Treatment Date Care Activity Detail Author Start: 02-09-2033 Screening for malign ant neoplasm of colon [facility] Start: 11-13-2024 Influenza vaccination Influenz a Vaccine (Season Ended) [facility] Start: 09-22-2024 Bacteria identified in Urine by Culture Urine Culture [facility] Start: 09-22-2024 Immunofixation for Urine [facility] Start: 09-22-2024 Urine culture [facility] Start: 09-22-2024 [facility] Start: 09-11-2024 End: 09-11-2024 Patient encounter procedure 09/11/2024 1:30 PM EDT Office Visit [facility] [address] [facility] [address] [place] [address] John Mathews MD [address] [facility] [address] [place] [address] Arrived [facility] Comment on above: Arrived Start: 08-30-2024 End: 08-30-2024 Patient encounter procedure 08/30/2024 9:50 AM EDT Office Visit [facility] [address] [place] [address] [place] [address] John Mathews MD [address] [facility] [address] [place] [address] [facility] Start: 08-09-2024 End: 08-09-2024 Patient encounter procedure [facility] Comment on above: Arrived Start: 07-19-2024 End: 07-19-2024 [facility] Start: 06-20-2024 End: 06-20-2024 Patient encounter procedure [facility] Comment on above: Arrived Start: 05-09-2024 End: 05-09-2024 Patient encounter procedure 05/09/2024 8:40 AM EST Office Visit [facility] [address] [facility] [address] [place] [address] John Mathews MD [address] [facility] [address] [place] [address] Arrived [facility] Comment on above: Arrived Start: 11-14-2023 Influenza vaccination Influenza Vacc ine (#1) [facility] Start: 02-20-2016 Pneumococcal Vaccine : 65+ Years (1 of 1 - PCV) Pneumococcal Vaccine: 65+ Years (1 of 1 - PCV) [facility] Start: 2001 Pneumococcal Vaccine : 65+ Years (1 of 1 - PCV) Pneumococcal Vaccine: 65+ Years (1 of 1 - PCV) [facility] Start: 1991 Screening for malign ant neoplasm of breast Mammogram [facility] Start: 1951 Screening for malign ant neoplasm of colon [facility] Albumin [Mass/volume ] in Serum or Plasma [facility] Albumin/Globulin ratio [facility] Electrophoresis: [id number] [facility] Electrophoresis: [id number] [facility] Electrophoresis: beta-globulin [facility] Electrophoresis: gracie ma globulin [facility] Globulin [Mass/volum e] in Serum [facility] IgA [Mass/volume] in Serum or Plasma [facility] IgG [Mass/volume] in Serum or Plasma [facility] IgM [Mass/volume] in Serum or Plasma [facility] Immunofixation for Urine [facility] light chains.f ree [Mass/volume] in Serum [facility] light chains.free/Lambda light chains.free [Mass Ratio] in Serum [facility] Lambda light chains. free [Mass/volume] in Serum or Plasma [facility] Patient Education Hemorrhoids Co shreya polyps Diverticulosis Know your Meds [facility] Work Phone: Protein [Mass/volume ] in Serum or Plasma [facility] Renal function 1999 panel - Serum or Plasma [facility] Renal function 1999 panel - Serum or Plasma [facility] Renal function 1999 panel - Serum or Plasma [facility] Serum immunofixation [facility] Immunizations Immunization Date Immunization Notes Care Provider Fa cility 01-07-2021 SARS-CoV-2 (COVID-19 ) mRNA BNT-162b2 [facility] 12-17-2020 SARS-CoV-2 (COVID-19 ) mRNA BNT-162b2 [facility] Payers Date Payer Category Payer Self-pay 2024 Unknown 2022 Medicare [id number] 2018 Private Health Insurance [id number] 2013 Medicare [id number] 1959 Medicare [id number] 1959 Unknown [id number] 1951 Unknown [id number] 2.16.84 0.1.143862.3.579.2.593 1951 Unknown [id number] 2.16.84 0.1.827617.3.579.2.593 1951 Unknown [id number] 2.16.84 0.1.578893.3.579.2.593 1951 Unknown [id number] 2.16.84 0.1.015854.3.579.2.593 1951 Unknown [id number] 2.16.84 0.1.037056.3.579.2.593 1951 Unknown [id number] 2.16.84 0.1.455699.3.579.2.593 1951 Unknown [id number] 2.16.84 0.1.269134.3.579.2.593 1951 Unknown [id number] 2.16.84 0.1.485926.3.579.2.593 1951 Unknown [id number] 2.16.84 0.1.259911.3.579.2.593 1951 Unknown [id number] 2.16.84 0.1.954117.3.579.2.593 1951 Unknown [id number] 2.16.84 0.1.419206.3.579.2.593 1951 Unknown [id number] 2.16.84 0.1.382479.3.579.2.593 1951 Unknown [id number] 2.16.84 0.1.141533.3.579.2.593 1951 Unknown [id number] 2.16.84 0.1.332844.3.579.2.593 1951 Unknown [id number] 2.16.8 40.1.551631.3.579.2.727 1951 Unknown [id number] 2.16.8 40.1.414693.3.579.2.727 1951 Unknown [id number] 2.16.8 40.1.486721.3.579.2.727 1951 Unknown [id number] 2.16.8 40.1.743420.3.579.2.727 1951 Unknown [id number] 2.16.8 40.1.081626.3.579.2.1259 1951 Unknown [id number] 2.16.84 0.1.106008.3.579.2.1259 1951 Unknown [id number] 2.16.84 0.1.515683.3.579.2.1259 1951 Unknown [id number] 2.16.84 0.1.905410.3.579.2.1259 1951 Unknown [id number] 2.16.8 40.1.506940.3.579.2.727 1951 Unknown [id number] 2.16.8 40.1.368580.3.579.2.727 1951 Unknown [id number] 2.16.8 40.1.298405.3.579.2.727 1951 Unknown [id number] 2.16. 840.1.451832.3.579.2.196 1951 Unknown [id number] 2.16. 840.1.698117.3.579.2.196 1951 Unknown [id number] 2.16. 840.1.825961.3.579.2.196 Unknown [id number] Unknown [id number] 2.16.8 40.1.326696.3.579.2.531 Unknown [id number] 2.16.8 40.1.260717.3.579.2.531 Social History Date Type Detail Facility Start: 01-06-2024 End: 07-19-2024 Tobacco smoking status VTIS Ex-smoker (finding) [facility] Start: 1950 Sex Assigned At Female F [facility] Tobacco smoking status Never [facility] Start: 05-09-2024 End: 08-09-2024 Sex Assigned At Female [facility] Tobacco smoking stat [facility] Tobacco smoking consumption unknown [facility] Start: 1950 Sex assigned at Not on file [facility] Start: 05-09-2024 [facility] Start: 05-09-2024 Tobacco use and exposure Smokeless tobacco non-user [facility] Start: 05-09-2024 End: 09-11-2024 Alcoholic beverage intake Ex-drinker (finding) [facility] Start: 05-09-2024 End: 08-09-2024 History of Social function [facility] Tobacco [facility] Comment on above: quit in 2009 Tobacco smoking status [facility] Start: 07-09-2016 End: 07-19-2024 Sex Female (finding) [facility] Goals Date Patient Goal Desired Activity /State Functional Status Date Assessment Result Facility 06-26-2024 Functional Status No [facility] 03-31-2024 Functional Status N/A [facility] Clinical Notes 10-26-2023 to 09-11-2024 John Mathews MD - 09/11/2024 1:30 PM EDTHimary Mathews MD - 08/09/2024 9:40 AM EDT Note Date & Type Note Facility 09-11-2024 History of Present illness Narrative Subjective Patient ID: Vero Sadler is a 74 y.o. female who presents for Ear Problem (Follow up CT Temporal TBH ) CT reviewed and there is no tegmen defect. Note made of a small amount of RT mastoid fluid. Pt also had an MRI brain since last seen and note made of mastoid fluid on the MRI No family history on file. Active Ambulatory Problems Diagnosis Date Noted A-fib ([facility]) 04/21/2022 Chest pain 07/27/2016 CKD (chronic kidney disease) stage 4, GFR 15-29 ml/min ([facility]) 01/26/2024 Clinical trial exam 04/23/2022 Dyspnea 07/27/2016 Edema 07/27/2016 Essential hypertension 01/25/2020 Fatigue 07/27/2016 Hyperkalemia 01/26/2024 Lightheadedness 07/27/2016 Lower abdominal pain 01/30/2022 Nonsustained paroxysmal ventricular tachycardia (HCC) 11/30/2022 Obstructive sleep apnea syndrome 10/02/2022 Other secondary pulmonary hypertension (HCC) 12/15/2022 Secondary hyperparathyroidism ([facility]) 01/26/2024 Spinal stenosis of lumbar region with neurogenic claudication 01/30/2022 Spondylosis of lumbosacral region without myelopathy or radiculopathy 01/30/2022 Symptomatic bradycardia 01/01/2023 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) 05/09/2024 Multiple pulmonary nodules 05/09/2024 Stage 3a chronic kidney disease ([facility]) 01/31/2024 Status post lumbar spine operation 05/09/2024 [...] LEVEL RIGHT 10/07/2022 NASAL ENDOSCOPY 07/06/2024 Dr Mathews TYMPANOSTOMY TUBE PLACEMENT Right 07/06/2024 Dr Mathews Allergies Allergen Reactions Penicillins Other Reaction(s): Other [...] resolve without tx documented in this encounter [facility] 08-25-2024 Note History: possible TIA Procedure: Multiplanar, multisequence imaging [...] right mastoid sinus Electronically signed: Estrada Raman. [facility] Comment on above: Order Comment: Order in [facility] 08-21-2024 Hospital Discharge instructions Patient Education 08/21/2024 10:41:06 Urinary Incontinence Urinary Incontinence Urinary incontinence refers to a condition in which a person is unable to control where and when to pass urine. A person with this condition will urinate involuntarily. This means that the person urinates when he or she does not mean to. What are the causes? This condition may be caused by: Medicines. Infections. Constipation. Overactive bladder muscles. Weak bladder muscles. Weak pelvic floor muscles. These muscles provide support for the bladder, intestine, and, in women, the uterus. Enlarged prostate in men. The prostate is a gland near the bladder. When it gets too big, it can pinch the urethra. With the urethra blocked, the bladder can weaken and lose the ability to empty properly. Surgery. Emotional factors, such as anxiety, stress, or post-traumatic stress disorder (PTSD). Spinal cord injury, nerve injury, or other neurological conditions. Pelvic organ prolapse. This happens in women when organs move out of place and into the vagina. This movement can prevent the bladder and urethra from working properly. What increases the risk? The following factors may make you more likely to develop this condition: Age. The older you are, the higher the risk. Obesity. Being physically inactive. and childbirth. Menopause. Diseases that affect the nerves or spinal cord. Long-term, or chronic, coughing. This can increase pressure on the bladder and pelvic floor muscles. What are the signs or symptoms? Symptoms may vary depending on the type of urinary incontinence you have. They include: A sudden urge to urinate, and passing urine involuntarily before you can get to a bathroom (urge incontinence). Suddenly passing urine when doing activities that force urine to pass, such as coughing, laughing, exercising, or sneezing (stress incontinence). Needing to urinate often but urinating only a small amount, or constantly dribbling urine (overflow incontinence). Urinating because you cannot get to the bathroom in time due to a physical disability, such as arthritis or injury, or due to a communication or thinking problem, such as Alzheimer's disease (functional incontinence). How is this diagnosed? This condition may be diagnosed based on: Your medical history. A physical exam. Tests, such as: ?Urine tests. ?X-rays of your kidney and bladder. ?Ultrasound. ?CT scan. ?Cystoscopy. In this procedure, a health care provider inserts a tube with a light and camera (cystoscope) through the urethra and into the bladder to check for problems. ?Urodynamic testing. These tests assess how well the [...] have and its cause. Treatment may include: Lifestyle changes, such as: ?Quitting smoking. ?Maintaining a healthy weight. ?Staying active. Try to get 150 minutes of moderate-intensity exercise every week. Ask your health care provider which activities are safe for you. ?Eating a healthy diet. ?Avoid high-fat foods, like fried foods. ?Avoid refined carbohydrates like white bread and white rice. ?Limit how much alcohol and caffeine you drink. ?Increase your fiber intake. Healthy sources of fiber include beans, whole grains, and fresh fruits and vegetables. Behavioral changes, such as: ?Pelvic floor muscle exercises. ?Bladder training, such as lengthening the amount of time between bathroom breaks, or using the bathroom at regular intervals. ?Using techniques to suppress bladder urges. This can include distraction techniques or controlled breathing exercises. Medicines, such as: ?Medicines to relax the bladder muscles and prevent bladder spasms. ?Medicines to help slow or prevent the growth of a man's prostate. ?Botox injections. These can help relax the bladder muscles. Treatments, such as: ?Using pulses of electricity to help change bladder reflexes (electrical nerve stimulation). ?For women, using a medical collections to prevent urine leaks. This is a small, tampon-like, disposable device that is inserted into the urethra. ?Injecting collagen or carbon beads (bulking agents) into the urinary sphincter. These can help thicken tissue and close the bladder opening. ?Surgery. Follow these instructions at home: Lifestyle Limit alcohol and caffeine. These can fill your bladder quickly and irritate it. Keep yourself clean to help prevent odors and skin damage. Ask your health care provider about special skin creams and cleansers that can protect the skin from urine. Consider wearing pads or adult diapers. Make sure to change them regularly, and always change them right after experiencing incontinence. General instructions Take huej-eki-[id number] and prescription medicines only as told by your health care provider. Use the bathroom about every 3 4 hours, even if you do not feel the need to urinate. Try to empty your bladder completely every time. After urinating, wait a minute. Then try to urinate again. Make sure you are in a relaxed position while urinating. If your incontinence is caused by nerve problems, keep a log of the medicines you take and the times you go to the bathroom. Keep all follow-up visits. This is important. Where to find more information National Crawford of Diabetes and Digestive and Kidney Diseases: www.niddk.nih.gov [employer] [employer]: www.urologyhealth.org Contact a health care provider if: You have pain that gets worse. Your incontinence gets worse. Get help right away if: You have a fever or chills. You are unable to urinate. You have redness in your groin area or down your legs. Summary Urinary incontinence refers to a condition in which a person is unable to control where and when to pass urine. This condition may be caused by medicines, infection, weak bladder muscles, weak pelvic floor muscles, enlargement of the prostate (in men), or surgery. Factors such as older age, obesity, and childbirth, menopause, neurological diseases, and chronic coughing may increase your risk for developing this condition. Types of urinary incontinence include urge incontinence, stress incontinence, overflow incontinence, and functional incontinence. This condition is usually treated first with [...] provider. Document Revised: 10/04/2020 Document Reviewed: 10/04/2020 [employer] Patient Education 2023 [employer]. Follow Up Care 07/14/2024 09:39:25 With:ROSETTA MENDEZ MD, URL Address: When: Unknown [facility] 08-21-2024 Note Patient Education Urology Urinary Incontinence Urinary incontinence [...] nerve stimulation). ? For women, using a medical collections to prevent urine leaks. This is a [...] skin damage. Ask your health care provider (more content not included)... [facility] 08-09-2024 History of Present illness Narrative Subjective Patient ID: Vero Sadler is a 74 y.o. female who presents for Ear Problem (S/p RT tube/Nasal ENDO [facility] 07/06/24) Pt reports for 2 1/2 weeks after tube placed she had severe RT milky otorrhea. Currently on mult abx for a LE infection. No family history on file. Active Ambulatory Problems Diagnosis Date Noted A-fib ([facility]) 04/21/2022 Chest pain 07/27/2016 CKD (chronic kidney disease) stage 4, GFR 15-29 ml/min ([facility]) 01/26/2024 Clinical trial exam 04/23/2022 Dyspnea 07/27/2016 Edema 07/27/2016 Essential hypertension ([facility]) 01/25/2020 Fatigue 07/27/2016 Hyperkalemia 01/26/2024 Lightheadedness 07/27/2016 Lower abdominal pain 01/30/2022 Nonsustained paroxysmal ventricular tachycardia ([facility]) 11/30/2022 Obstructive sleep apnea syndrome 10/02/2022 Other secondary pulmonary hypertension 12/15/2022 Secondary hyperparathyroidism ([facility]) 01/26/2024 Spinal stenosis of lumbar region with neurogenic claudication 01/30/2022 Spondylosis of lumbosacral region without myelopathy or radiculopathy 01/30/2022 Symptomatic bradycardia 01/01/2023 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 VT (ventricular tachycardia) ([facility]) 04/29/2022 Aspirin long-term use 05/09/2024 CAD (coronary artery disease) ([facility]) 05/09/2024 Chronic obstructive pulmonary disease ([facility]) 05/09/2024 Former smoker 05/09/2024 History of colon polyps 05/09/2024 History of tobacco abuse 05/09/2024 Hypercholesterolemia ([facility]) 05/09/2024 Hypothyroidism ([facility]) 05/09/2024 Kidney stones 05/09/2024 Morbid obesity ([facility]) 05/09/2024 Multiple pulmonary nodules 05/09/2024 Stage 3a chronic kidney disease (HCC) ([facility]) 01/31/2024 Status post lumbar spine operation [...] LEVEL RIGHT 10/07/2022 NASAL ENDOSCOPY 07/06/2024 Dr Mathews TYMPANOSTOMY TUBE PLACEMENT Right 07/06/2024 Dr Mathews Allergies Allergen Reactions Penicillins Other Reaction(s): Other [...] after tube placed concerning for a CSF leak. I will check a CT temporal bone to eval for a tegmen defect. Cirprodex for mild RT myringitis documented in this encounter [facility] 07-19-2024 Procedure note [facility] 07-19-2024 History and physi magnolia note [facility] 07-15-2024 Note Progress Note-Physic stacy Patient: VERO SADLER Age: 74 years Sex: Female : 1950 Associated Diagnoses: None Author: Pedro Walden MD Postoperative Information Postoperative disposition: Postoperative disposition: To PACU. Optimetrix number: Optimetrix number [id number]. Anesthetic utilized: General. Health Status Allergies: Allergic Reactions (Selected) Severity Not Documented Adhesive Bandage- Hives. Physical Examination VS/Measurements Pain Assessment: Controlled. General: Awake, Appropriate. Respiratory: Adequate air exchange. Cardiovascular: Stable. Neurological Assessment Anesthetic outcome No anesthetic complications noted. Adequate pain relief. Review / Management Condition: Stable. Plan Transfer/Discharge: Transfer/Discharge Discharge when meets criteria ( To home ). [facility] Comment on above: Result Comment: Elec tronically Signed By: Pedro Walden MD\.br\Date and Time Signed: 07/15/24 16:46 EDT 07-13-2024 Hospital Discharge instructions Patient Education 07/13/2024 10:40:08 Post Op Patient Instructions - FT (CUSTOM) Follow Up Care 05/19/2024 09:13:05 With:ROSETTA MENDEZ Address:Unknown When: Unknown Comments:1 month [facility] 07-13-2024 Note Patient Education - Text [facility] 07-13-2024 Note Progress Note-Bri kumar Patient: VERO SADLER Age: 74 years Sex: Female : 1950 Associated Diagnoses: None Author: Shahab BELTRÁN, Pedro Randolph Preoperative Information Anesthesia Preop Info: Time patient [...] Problems Aspirin long-term use / SNOMED CT 3846628342 / Confirmed Atrial fibrillation / SNOMED CT 55879370 / Confirmed Bradycardia / SNOMED CT 99243932 / Confirmed CAD (coronary artery disease) / SNOMED CT 22244217 / Confirmed Chronic kidney disease due to hypertension.. / SNOMED CT 6705836632 / Confirmed Chronic kidney disease stage 3A. / SNOMED CT 5257358568 / Confirmed Chronic kidney disease stage 4 / SNOMED CT 8343848597 / Confirmed Chronic kidney disease, stage 3 / SNOMED CT 7280828848 / Confirmed Chronic obstructive pulmonary disease / SNOMED CT 10909127 / Confirmed Former smoker / SNOMED CT 38782098 / Confirmed History of colon polyps / SNOMED CT 5164035116 / Confirmed History of operative procedure on lumbar spinal structure / SNOMED CT 5025397244 / Confirmed History of tobacco abuse / SNOMED CT 6823527318 / Confirmed Hypercholesterolemia / SNOMED CT 23630448 / Confirmed Hyperkalemia / SNOMED CT 38323350 / Confirmed Hypertension / SNOMED CT 5125706019 / Confirmed Hypertensive disorder / SNOMED CT 9675081114 / Confirmed Hypothyroidism / SNOMED CT 08879776 / Confirmed Morbid obesity / SNOMED CT 332912966 / Confirmed Multiple pulmonary nodules / SNOMED CT 2659705524 / Confirmed Pulmonary hypertension / SNOMED CT 392702983 / Confirmed Spinal stenosis / SNOMED CT 791753527 / Confirmed Stress incontinence, female / SNOMED CT 881038603 / Confirmed Canceled: Kidney stones / SNOMED CT 789159079 pt denies, Active Problems (23) Aspirin long-term [...] or recorded. Fam (more content not included)... [facility] Comment on above: Result Comment: Elec tronically Signed By: Pedro Walden MD\.br\Date and Time Signed: 07/13/24 08:41 EDT 07-12-2024 Evaluation + Plan note Extrac lani from: Title:ANES Pre-operative Note 2022 Author:Pedro Villalpando Date:07/12/24 Plan [place] [employer]esthesiologists (ASA) physical status classification: Class III. Anesthetic Preoperative Plan: Anesthesia Monitored anethesia care. [facility] 04-15-2025 Evaluation note* Diagnosis Onset Date Resolution [...] Secondary hyperparathyroidism acute June 27, 2024 10:58am [facility] Work Phone: 1(582) 735-224004-08-2025 History of Present illness Narrative* John Mathews [...] Active Ambulatory Problems Diagnosis Date Noted A-fib ([facility]) 04/21/2022 Chest pain 07/27/2016 CKD (chronic kidney disease) stage 4, GFR 15-29 ml/min ([facility]) 01/26/2024 Clinical trial exam 04/23/2022 Dyspnea [...] long-term use 05/09/2024 CAD (coronary artery disease) ([facility]) 05/09/2024 Chronic obstructive pulmonary disease ([facility]) 05/09/2024 Former smoker 05/09/2024 History of colon polyps 05/09/2024 History of tobacco abuse 05/09/2024 Hypercholesterolemia ([facility]) 05/09/2024 Hypothyroidism ([facility]) 05/09/2024 Kidney stones 05/09/2024 Morbid obesity ([facility]) 05/09/2024 Multiple pulmonary nodules 05/09/2024 Stage 3a chronic kidney disease (HCC) ([facility]) 01/31/2024 Status post lumbar spine operation [...] Hold ASA 10d preop documented in this encounterSaint John's [id number] NotePatient Education Obstetrics and Gynecology Kegel Exercises [...] provider. Document Revised: 07/10/2021 Document Reviewed: 07/10/2021 [employer] Patient Education ? 2023 [employer].[facility] 05-09-2024 NoteUT Cardiology Consult Note Reason [...] kidney disease COPD (chronic obstructive pulmonary disease) ([facility]) Hypertension Myocardial infarction ([facility]) Obstructive sleep apnea 10/02/2022 SOBIA=17.7 events/hour; Pranav SaO2=76%; Gxeinn=227.0 lbs; BMI=52.7 kg/m2, Home Sleep Apnea Testing on 09/25/2022 at [facility]: Past Surgical History: Procedure Laterality Date CARDIAC CATHETERIZATION COLONOSCOPY 02/09/2023 EYE SURGERY CATARACT FOOT SURGERY Right tendon repair HYSTERECTOMY INSERT / REPLACE / REMOVE PACEMAKER 01/12/2023 OTHER SURGICAL HISTORY Bilateral 05/31/2023 S1 TFESI - 20% pain relief SH: Social Determinants of Health Tobacco Use: Low Risk (05/09/2024) Received from [facility] Patient History Smoking Tobacco Use: [...] Transportation Needs (01/05/2023) Tr (more content not included)...[facility]02-25-2025 History of Present illness Narrative* Jhon Mathews MD - 05/09/2024 8:40 AM EST Subjective Patient ID: Vero Sadler is a 74 y.o. female who presents for Ear Problem (Audio 05/04/24 mackenzie ) Pt had the flu 4 weeks ago and now unable to hear on the RT. Also has RT LAMBERT. No tx yet per pt. shows moderate to severe right mixed HL with a flat tymp. Review of Systems All other systems reviewed and are negative. No family history on file. Active Ambulatory Problems Diagnosis Date Noted A-fib ([facility]) 04/21/2022 Chest pain 07/27/2016 CKD (chronic kidney disease) stage 4, GFR 15-29 ml/min ([facility]) 01/26/2024 Clinical trial exam 04/23/2022 Dyspnea 07/27/2016 Edema 07/27/2016 Essential hypertension ([facility]) 01/25/2020 Fatigue 07/27/2016 Hyperkalemia 01/26/2024 Lightheadedness 07/27/2016 Lower abdominal pain 01/30/2022 Nonsustained paroxysmal ventricular tachycardia ([facility]) 11/30/2022 Obstructive sleep apnea syndrome 10/02/2022 Other secondary pulmonary hypertension ([facility]) 12/15/2022 Secondary hyperparathyroidism ([facility]) 01/26/2024 Spinal stenosis of lumbar region with neurogenic claudication 01/30/2022 Spondylosis of lumbosacral region without myelopathy or radiculopathy 01/30/2022 Symptomatic bradycardia 01/01/2023 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 VT (ventricular tachycardia) ([facility]) 04/29/2022 Aspirin long-term use 05/09/2024 CAD (coronary artery disease) ([facility]) 05/09/2024 Chronic obstructive pulmonary disease ([facility]) 05/09/2024 Former smoker 05/09/2024 History of colon polyps 05/09/2024 History of tobacco abuse 05/09/2024 Hypercholesterolemia ([facility]) 05/09/2024 Hypothyroidism ([facility]) 05/09/2024 Kidney stones 05/09/2024 Morbid obesity ([facility]) 05/09/2024 Multiple pulmonary nodules 05/09/2024 Stage 3a chronic kidney disease (HCC) ([facility]) 01/31/2024 Status post lumbar spine operation [...] possible cause of LAMBERT. documented in this encounterSaint John's [id number] Hospital Discharge instructions Follow Up Care 04/12/2024 08:02:27 With:ROSETTA MENDEZ MD, URL Address: When: Unknown [facility] [id number] Hospital Discharge instructions Patient Education 03/31/2024 15:09:50 [...] including vitamins, herbs, eye drops, creams, and bimi-eot-ggwxtfw medicines. Any problems you or family members [...] provider tells you to take them. Taking ztcf-jdm-ngacwvm medicines, vitamins, herbs, and supplements. Tests You [...] Follow these instructions at home: Medicines Take gumw-hbn-jwaaaok and prescription medicines only as told by [...] provider. Document Revised: 11/12/2021 Document Reviewed: 10/11/2020 [employer] Patient Education 2023 [employer]. 03/31/2024 15:09:42 Injection Treatments for Urinary Incontinence [...] including vitamins, herbs, eye drops, creams, and ewdo-qun-xweulil medicines. Any problems you or family members [...] provider tells you to take them. Taking cnuf-zcb-sujdcsw medicines, vitamins, herbs, and supplements. General instructions [...] provider. Document Revised: 10/04/2020 Document Reviewed: 10/04/2020 [employer] Patient Education 2023 [employer]. 03/31/2024 15:09:34 Kegel Exercises Kegel Exercises Kegel [...] provider. Document Revised: 07/10/2021 Document Reviewed: 07/10/2021 [employer] Patient Education 2023 [employer]. Follow Up Care 02/22/2024 14:36:40 With:BRYAN BELTRÁN, ROSETTA, URL Address: When: Unknown [facility] 01-17-2025 NotePatient Education Obstetrics and Gynecology [...] provider. Document Revised: 07/10/2021 Document Reviewed: 07/10/2021 [employer] Patient Education ? 2023 [employer]. Urology Cystoscopy Cystoscopy is a procedure that [...] including vitamins, herbs, eye drops, creams, and txdg-ycs-miqttif medicines. ??? Any problems you or family [...] tells you to take them. ??? Taking tojw-udg-dgjfabx medicines, vitamins, herbs, and supplements. Tests You may have an exam or testing, such as: ??? X-rays of the bladder, urethra, or kidneys. ??? CT scan of the abdomen or pelvis. ??? Urine tests to check for signs of infection. General instructions ??? Follow instructions fr (more content not included)...[facility]11-13-2024 [facility] Note Chief Complaint: Patient is here today for follow up [facility] ED visit. She was having chest [...] Disp: 479 g, Rfl (more content not included)...[facility]08-13-2024 NoteUT Cardiology Consult Note Reason for [...] kidney disease COPD (chronic obstructive pulmonary disease) ([facility]) Hypertension Myocardial infarction ([facility]) Obstructive sleep apnea 10/02/2022 SOBIA=17.7 events/hour; Pranav SaO2=76%; Xovlpc=849.0 lbs; BMI=52.7 kg/m2, Home Sleep Apnea Testing on 09/25/2022 at [facility]: Past Surgical History: Procedure Laterality [...] Allergies Allergen Reactions Penicillins (more content not included)...[facility] Evaluation + Plan note No data available for this section [facility] Evaluation + Plan note Future Appointments Appointment Date:07/13/2024 09:00:00 AM Scheduled Provider: Location:[facility] Services Appointment Type:Surgery [facility] Evaluation + Plan note Future Appointments Appointment Date:02/20/2025 11:00:00 AM Scheduled Provider:ROSETTA MENDEZ MD Location:[facility] Appointment Type:URO Office Visit [facility] Evaluation note* Diagnosis Onset Date Resolution Status CKD (chronic kidney disease) stage 4, GFR 15-29 ml/min acute Hyperkalemia acute [id number] acute Secondary hyperparathyroidism acute [facility] note* Diagnosis OME (otitis [...] Secondary hyperparathyroidism acute June 27, 2024 10:58am [facility] Work Phone: Evaluation note* Diagnosis ETD (Eustachian tube dysfunction), right- Primary CSF otorrhea Chronic myringitis of right ear documented in this encounter [facility] Healthcare[facility]* Diagnosis ETD (Eustachian tube dysfunction), right- Primary Chronic mastoiditis, right documented in this encounter [facility]* Diagnosis Onset Date Resolution Status Admit Date Anemia of renal disease acute J [id number] 11:03am CKD (chronic kidney disease) stage 4, GFR 15-29 ml/min acute October 05, 11:03am Hyperkalemia acute October 05 11:03am Hyperlipidemia acute October 05, 2024 11:03am Hypertensive chronic kidney disease with stage 1 through stage 4 chronic ki acute October 05, 2024 11:03am Hyperuricemia acute October 05, 2024 11:03am Hypomagnesemia acute October 05, 2024 11:03am Secondary hyperparathyroidism acute October 05, 2024 11:03am [facility] Work Phone: History and physical note Author Kal Molina [facility] Note Date/Time July 19, 2024 1:20pm [facility] [address] [place] [address] Gastroenterology H&P Signed Patient: Vero Sadler MR#: [id number] : 1950 Acct:[id number] Age/Sex: 74 / F Adm Date: 5 Loc: Room: Type: [facility] Attending Dr: Kal Molina MD Copies [...] signed by Kal Molina MD> 07/19/24 1320 [facility] Work Phone: Hospital Discharge instructions No data available for this section [facility] Progress note No data available for this section [facility] Reason for referral (narrative)No reason for referral information [facility]Tr[facility] Work Phone: Summary Purpose Family History No [...] disease) stage 4, GFR 15-29 ml/min Hyperkalemia [id number] Secondary hyperparathyroidism Chronic kidney disease Chief Complaint [...] m rectal bleeding July 19, 2024 1:19pm Chief Complaint Admit Date RENAL 4 MONTH F/U June 27, 2024 10: 58am rectal bleeding July 19, 2024 11:10a m rectal bleeding July 19, 2024 1:19pm E83.42 N18.9 N18.4 I12.9 September 22, 2024 12:11pm Chief Complaint Admit Date rectal bleeding July 19, 2024 11:10a m rectal bleeding July 19, 2024 1:19pm E83.42 N18.9 N18.4 I12.9 September 22, 2024 12:11pm renal 3 month f/u October 05, 2024 11:0 3am Reason for Visit Admit Date Anemia of renal disease October 05, 2024 11:03am CKD (chronic kidney disease) stage 4, GF R 15-29 ml/min October 05, 2024 11:03am Hyperkalemia October 05, 2024 11:0 3am Hyperlipidemia October 05, 2024 11:0 3am Hypertensive chronic kidney disease with stage 1 through stage 4 chronic ki October 05, 2024 11:03am Hyperuricemia October 05, 2024 11:0 3am Hypomagnesemia October 05, 2024 11:0 3am Secondary hyperparathyroidism October 05, 2024 11:03am Additional Source Comments INFORMATION SOURCE (unrecogn ized section and content) DATE CREATED AUTHOR 09/08/2017 [facility] DATE CREATED AUTHOR AUTHOR'S ORGANIZ ATION 09/27/2020 [facility] DATE CREATED AUTHOR AUTHOR'S ORGANIZ ATION 07/24/2022 [facility]ital DATE CREATED AUTHOR AUTHOR'S ORGANIZ ATION 06/27/2024 Connor Mukesh [facility] DATE CREATED AUTHOR AUTHOR'S ORGANIZ ATION 08/29/2024 [facility] DATE CREATED AUTHOR AUTHOR'S ORGANIZ ATION 09/12/2024 [facility] dical [facility] DATE CREATED AUTHOR AUTHOR'S ORGANIZ ATION 09/13/2024 [place] [facility] DATE CREATED AUTHOR AUTHOR'S ORGANIZ ATION 10/02/2024 [facility] DATE CREATED AUTHOR AUTHOR'S ORGANIZ ATION 10/11/2024 [facility] Care Teams (unrecognized sec tion and content) Team Status: Active Member Role Status Gabo Bhatia MD Primary Care Provider Active Team Status: Inactive Member Role Status Gabo Bhatia MD Primary Care Provider Active Start: June 27, 2024 End: June 27, 2024 Lizette Schaffer MD Attending Provider Active Start : June 27, 2024 End: June 27, 2024 Team Status: Inactive Member Role Status Gabo Bhatia MD Primary Care Provider Active Start: July 19, 2024 End: July 19, 2024 Kal Molina MD Attending Provider Active Start: July 19, 2024 End: July 19, 2024 Team Status: Active Member Role Status Gabo Bhatia MD Primary Care Provider Active Start: July 19, 2024 Kal Molina MD Attending Provider Active Start: July 19, 2024 Kal Molina MD Other Provider Active Start: July 19, 2024 Team Status: Inactive Member Role Status Gabo Bhatia MD Primary Care Provider Active Start: September 22, 2024 End: September 22, 2024 Lizette Schaffer MD Attending Provider Active Start : September 22, 2024 End: September 22, 2024 Team Status: Active Member Role Status [...] January 06, 2024 End: January 06, 2024 Leverman Relationship Specialty Start Date End Date Debbie Bhatia MD [address] [facility] [place] [address] PCP - General Family Medicine 05/09/24 Leverman Relationship Specialty Start Date End Date Debbie Bhatia MD [address] [facility] [place] [address] PCP - General Family Medicine 05/09/24 Leverman Relationship Specialty Start Date End Date Debbie Bhatia MD [address] [facility] [place] [address] PCP - General Family Medicine 05/09/24 Leverman Relationship Specialty Start Date End Date Debbie Bhatia MD [address] [facility] [place] [address] PCP - General Family Medicine 05/09/24 Team Status: Active Member Role Status Dates Debbie Bhatia MD Primary Care Provider Active Start: July 19, 2024 Kal Molina MD Attending Provider, Other Provider Act sim Start: July 19, 2024 Leverman Relationship Specialty Start Date End Date Debbie Bhatia MD [address] [facility] [place] [address] PCP - General Family Medicine 08/02/24 Leverman Relationship Specialty Start Date End Date Debbie Bhatia MD [address] [facility] [place] [address] PCP - General Family Medicine 08/02/24 Leverman Relationship Specialty Start Date End Date Debbie Bhatia MD [address] [facility] [place] [address] PCP - General Family Medicine 08/02/24 Leverman Relationship Specialty Start Date End Date Debbie Bhatia MD [address] [facility] [place] [address] PCP - General Family Medicine 08/02/24 Leverman Relationship Specialty Start Date End Date Debbie Bhatia MD [address] [facility] [place] [address] PCP - General Family Medicine 08/02/24 Team Status: Inactive Member Role Status Dates Debbie Bhatia MD Primary Care Provider Active Start: October 05, 2024 End: October 05, 2024 Lizette Schaffer MD Attending Provider Active Start : October 05, 2024 End: October 05, 2024 Goals (unrecognized section and content) Goals [...] check ears/ s inus XR [facility] 05/09/24 Reason Comments Ear Problem S/p RT tube/Nasal EN DO [facility] 07/06/24 Reason Comments Ear Problem Follow up CT Tempora l [facility] FOR RECORDS PERTAINING TO PATIENTS WHO ARE [...] BE BASED ON THE PRIMARY CLINICAL RECORDS. [facility], [facility]. provides no warranty or guarantee of the accuracy or completeness of information in this document.
[2024-10-16 06:53] VITALS: BP 148/88; PULSE 76; TEMP 36.1; O2SAT 97
[2024-10-16] MEDS: 0.9 % SODIUM CHLORIDE 500 ML 50 ML IV (07:27)
[2024-10-16] MEDS: 0.9 % SODIUM CHLORIDE 10 ML SYRINGE - SALINE FLUSH INJ (08:15)
[2024-10-16] MEDS: BUPIVACAINE HCL 0.25% PF 25 MG/10 ML VIAL 2 ML INJ (08:16)
[2024-10-16] MEDS: LIDOCAINE HCL 2% 400 MG/20 ML MDV 3 ML INJ (08:16)
[2024-10-16] MEDS: IOHEXOL 240 MG/ML - 10 ML VIAL INJ (08:16)
[2024-10-16] MEDS: METHYLPREDNISOLONE ACETATE 80 MG/ML VIAL INJ (08:17)
--- NOTE | 2024-10-16 08:18 | W.PM.PROCNOT ---
Date of procedure: 10/16/24 Pre-op diagnosis: Pain due to lumbar stenosis with neurogenic claudication Post-op diagnosis: same as pre-op Procedure: Procedure: Right L4-5, L5-S1 transforaminal epidural steroid injection Medications: Bupivacaine 0.25% 2cc, lidocaine 2% 1cc, depomedrol 40mg The patient was seen and examined in the preoperative holding area.? Informed consent was obtained and placed on the chart.? Patient was brought to the medical procedure unit and placed in the prone position where a timeout was completed verifying the correct patient, procedure site, position, and planned special equipment using sterile aseptic technique.? Under direct fluoroscopic visualization a 25-gauge Quincke tipped spinal needle was advanced at level right L4-5 to the designated neural foramen where contrast dye was injected to show adequate spread.? There was no evidence of vascular or adverse uptake.? Epidural spread was appreciated.? The above-mentioned injectate was then placed in a 1.5 mL aliquot preceded by negative aspiration.? The needle was removed. The same procedure, at the same level, was completed at right L5-S1. ? Patient was taken to the postprocedural recovery area and monitored for an appropriate length of time before found suitable for discharge in the accompaniment of a responsible adult. Anesthesia: MAC Surgeon: Cande Garcia Pathology: none sent Condition: stable Disposition: no change
[2024-10-16 08:21] VITALS: BP 127/69; PULSE 84; TEMP 36.4; O2SAT 97
[2024-10-16 08:26] VITALS: BP 134/63; PULSE 82; TEMP 36.4; O2SAT 96
== END 2024-10-16 09:20 | disposition home or self-care (01) ==
LOC: SURGOUT 06:43
PROVIDERS: PCP Family Medicine; Visit Provider Anesthesiology
DX: M48.062 Spinal stenosis, lumbar region with neurogenic claudication (principal); M54.50 Low back pain, unspecified
CPT/HCPCS: 64483; 64484; J0665; J1010; J2704; Q9966

== ENCOUNTER 2024-10-23 13:57 | Outpatient (OUT) | payer MEDICARE, SELFPAY ==
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
== END 2024-10-23 13:58 | disposition home or self-care (01) ==
LOC: PM 13:57
PROVIDERS: PCP Family Medicine; Visit Provider Anesthesiology
DX: M48.062 Spinal stenosis, lumbar region with neurogenic claudication (principal)
CPT/HCPCS: G0463

== ENCOUNTER 2024-11-23 14:48 | Outpatient (OUT) | payer MEDICARE, SELFPAY ==
--- OUTSIDE RECORDS SUMMARY | 2024-11-23 16:15 | XMS_ITS | CCD ---
Author Organization [facility] Care Team Providers Care Web Content Producer Name Role Phone PHYSICIAN, DEFAULT Unavailable Unavailable PHYSICIAN, DEFAULT Unavailable Unavailable DEBBIE BHATIA Unavailable Unavailable SRIRAM ., DR LEWIS Consulting Unavailable HOY ., DR LEWIS Attending Unavailable HOY ., DR LEWIS Primary Care Unavailable HOY ., DR LEWIS Admitting Unavailable BEAR BRANCH, DR RAJI Odonnell Consulting Unavailable HOY ., [...] Attending Unavailable LITO .SOMMER Consulting Unavailable SRIRAM .DR LEWIS Primary Care [...] Unavailable HOY ., DR LEWIS Admitting Unavailable BEAR BRANCH, DR RAJI Odonnell Consulting Unavailable Debbie Bhatia Primary Care Physician [phone] Debbie Bhatia MD Primary Care Provider [phone] NKANSCLAUDIO-AMJEAN-PIERRERA, ROSETTA Attending Unavail able NKANSCLAUDIO-AMELSA GALDAMEZNA Attending Unavail able NKANSCLAUDIO-AMELSA GALDAMEZNA Referring Unavail able NKANSAH-AMANKRA, ROSETTA Admitting Unavail able NKANSAH-AMANKRA, ROSETTA Attending Unavail able Debbie Bhatia Referring Unavailable NKANSCLAUDIO-AMANKRA, ROSETTA Attending Unavail able Debbie Bhatia MD Primary Care Provider [phone] Tracy BELTRÁN, Imjavier Attending Provider Debbie Bhatia MD Primary Care Provider [phone] JOHN MATHEWS H Attending Unavailable DEBBIE BHATIA Referring Unavailable JOHN MATHEWS Attending Unavailable JOHN MATHEWS H Attending Unavailable JOHN MATHEWS H Attending Unavailable MD ROSETTA MENDEZ Admitting Unav ailable MD ROSETTA MENDEZ Attending Unav ailable MD ROSETTA MENDEZ Referring Unav ailable MD ROSETTA MENDEZ Attending Unav ailable MD ROSETTA MENDEZ Attending Unav ailable MD ROSETTA MENDEZ Attending Unav ailable MD ROSETTA MENDEZ Referring Unav ailable MD ELSA MENDEZNA Admitting Unav ailable Debbie Bhatia MD Primary Care Provider Sarbjit BELTRÁN, Lizette Attending Provider Asajavier BELTRÁN, Kal Other Provider Lizette Schaffer MD Attending Provider [phone] Debbie Bhatia Primary Care Unavailable Asaad, Imad Admitting Unavailable Asaad, Imad Attending Unavailable Debbie Bhatia Primary Care Unavailable Sarbjit, Lizette Admitting Unavailable Sarbjit, Lizette Attending Unavailable Giedraitis , Andrius Vytautas Attending Unavailable Giedraitis , Andrius Vytautemily Attending Unavailable Giedraitis , Andrius Vytautas Attending Unavailable Giedraitis , Andrius Vytautas Attending Unavailable Giedraitis , Andrius Vytautemily Attending Unavailable JOSEY KWOK Referring Unavailable JOSEY KWOK Referring Unavailable JOSEY KWOK Referring Unavailable JOSEY KWOK Referring Unavailable DEBBIE BHATIA Referring Unavailable SHEFALIRYAN MORGAN Referring Unavailable RYAN MEEHAN Referring Unavailable JOSEY KWOK Referring Unavailable JOSEY KWOK Attending Unavailable JOSEY KWOK Attending Unavailable JOSEY KWOK Referring Unavailable ELTAELINA, TATO Attending Unavailable JOSEY KWOK Referring Unavailable Allergies Allergy Classification Reported Allergen(s) Allergy Type Date of Onset Reaction(s) Facility (9 sources) Penicillins; Translations: [PENICILLINS] Drug allergy (disorder) 5 AOF, Unknown Reaction [facility] Repository Comment on above: yeast infection (6 sources) Adhesive Tape; Translations: [adhesive tape] Allergy to substance 4 skin rash [facility] (7 sources) Adhesive bandage; Translations: [Adhesive Bandage] Drug allergy Weal (disorder) [facility] (14 sources) Penicillins Drug Allergy 2 [facility] (2 sources) fluticasone; Translations: [fluticasone] Drug Allergy 5 Headache [facility] (1 source) Penicillins Drug allergy (disorder) [address] [place] [address] Repository (1 source) fluticasone; Translations: [FLUTICASONE PROPIONATE] Drug Allergy 5 [facility] Repository Medications Current Medications Medication Drug Class(es) Dates Sig (Normalized) Sig (Original) [id number] 200 actuat albuterol 0.09 mg/actuat metered dose [...] 25 mg oral tablet (10 sources) alpha-Adrenergic Lforence, beta-Adrenergic [place] Start: 01-06-2024 take 12.5 mg [...] Ordered Start: 11-25-2022 take 1 tablet by [facility] once daily isosorbide dinitrate 10 mg Tab 10 mg = 1 tab(s), Oral, Daily, Refills(s) 0 Start Date: 11/25/22 Status: Ordered levothyroxine sodium 0.088 mg oral tablet (20 sources) l-Thyroxine Start: 06-27-2024 take 1 tablet by mouth once Levothyroxine 88 mcg tablet Active 88 MCG PO Once June 27, 2024 12:00am Complies with drug therapy Start: 06-26-2024 take 1 capsule by [facility] once daily levothyroxine 88 mcg (0.088 mg) [...] day(s), # 9 tab(s), Refills(s) 0, Pharmacy: [facility]/pharmacy #[id number], 160.1, cm, 06/26/24 14:41:00 EDT, Height/Length Dosing, 136.8, kg, 06/26/24 14:41:00 EDT, Weight Dosing Start Date: 07/13/24 Stop Date: 07/16/24 Status: Ordered Quantity: 9.0 Unit: tab(s) Repeat number: 1 polyethylene glycol 3350 [id number] mg / potassium chloride 2970 mg / sodium bicarbonate 6740 mg / sodium chloride 5860 mg / sodium sulfate 11514 mg powder for oral solution (5 sources) [...] February 14, 2024 12:04pm sodium polystyrene sulfonate 47669 mg powder for oral suspension (11 sources) [...] unspecified] Onset: 5 11-25-2022 Chronic Conduction disorders (12 sources) Cardiac pacemaker in situ; Translations: [Presence of cardiac pacemaker] Onset: 4 02-14-2024 Chronic Congestive heart failure; nonhypertensive (3 sources) Acute combined systolic (congestive) and diastolic (congestive) heart failure; Translations: [Unspecified diastolic (congestive) heart failure] Onset: 2 Chronic Coronary atherosclerosis and other heart disease (19 sources) Coronary arteriosclerosis; Translations: [Atherosclerotic heart disease of [place] coronary artery without angina pectoris] Onset: 5 [...] Translations: [Vertebrogenic low back pain] Onset: 4 Past or Other Problems Problem Classification Problem [...] object(s), not elsewhere classified, initial encounter; Translations: [[facility] SHRP OB NOT ELSW CLASS INI] [...] 08-12-2021 Episodic Other aftercare (1 source) Other nursing home (current) drug therapy; Translations: [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] Onset: 08-14-2021 Episodic Other aftercare (17 sources) Long-term current use of aspirin; Translations: [long term care phlebotomist (current) use of aspirin] Onset: 03-31-2024 Episodic [...] Test Name Value Interpretation Reference Range Facility Orders Onlyon 11-10-2024 Orders Only [id number] Brian Sadler se [place] 1950 Provider Department Center 11/10/2024 JOSEY AR[facility]OLD [facility] C[facility] Family History Problem Relation Age of Onset Other Mother Coronary artery disease Mother Other Mother Other Mother Other Father Hypertension Father Hyperlipidemia Father Other Daughter Family Status - Relation Status Age at Mother Father Daughter Normal [facility] Office Visiton 10-24-2024 Follow-up visit [id number] Brian Sadler se [place] 1950 Provider Department Center 10/24/2024 JOSEY [facility]OLD C[facility] Family History Problem Relation Age of Onset Other Mother Coronary artery disease Mother Other Mother Other Mother Other Father Hypertension Father Hyperlipidemia Father Other Daughter Family Status - Relation Status Age at Mother Father Daughter Level of Service:05700 CT OFFICE/OUTPATIENT ESTABLISHED LOW MDM 20 MIN Normal [facility] Albumin [Mass/volume] in Ser um or Plasma by Bromocresol green (BCG) dye binding methoOrdered By: Lizette Schaffer on 09-22-2024 Albumin BCG dye [Mass/Vol] 3.8 g/dL 3.5-5.7 [facility] Appearance of UrineOrdered B y: Lizette Schaffer on 09-22-2024 Appearance (U) Cloudy Critically abnormal Clear [facility] Comment on above: Order Comment: Name Collection Type:: Clean-Voided Midstream Performed By: #### I FE SERUM, SPE W INTERPRET, KAPPA #### [facility] , #### FE and TIBC, MG, TAYLOR, RENAL, PTH, [id number], CBCNO, URIC #### [facility] [address] Bacteria [Presence] in Urine by AutomatedOrdered By: Lizette Sarbjit on 09-22-2024 Bacteria Auto Ql (U) 1+ [HPF] High None Seen [facility] Bilirubin Test strip Ql (U)O rdered By: Lizette Sarbjit on 09-22-2024 Bilirubin Ql (U) Negative Negative [facility] Calcium [Mass/volume] in Ser um or PlasmaOrdered By: Lizette Sarbjit on 09-22-2024 Calcium [Mass/Vol] 8.9 mg/dL Normal 8.6-10.3 [facility] Comment on above: Performed By: #### I FE SERUM, SPE W INTERPRET, KAPPA #### [facility] , #### FE and TIBC, MG, TAYLOR, RENAL, PTH, [id number], CBCNO, URIC #### [facility] [address] [place] [address] [place] Carbon dioxide, total [Moles /volume] in Serum or PlasmaOrdered By: Lizette Sarbjit on 09-22-2024 CO2 [Moles/Vol] 24.4 mmol/L Normal 21.0-31.0 [facility] Comment on above: Performed By: #### I FE SERUM, SPE W INTERPRET, KAPPA #### [facility] , #### FE and TIBC, MG, TAYLOR, RENAL, PTH, [id number], CBCNO, URIC #### [facility] [address] [place] [id number] [place] Chloride [Moles/volume] in S bridgette or PlasmaOrdered By: Lizette Sarbjit on 09-22-2024 Chloride [Moles/Vol] 109 mmol/L High 98-107 [facility] Comment on above: Performed By: #### I FE SERUM, SPE W INTERPRET, KAPPA #### [facility] , #### FE and TIBC, MG, TAYLOR, RENAL, PTH, [id number], CBCNO, URIC #### [facility] [address] [place] [address] Color of Urine by AutoOrdere d By: Lizette Schaffer on 09-22-2024 Color (U) Yellow Normal Yellow [facility] Comment on above: Order Comment: Name Collection Type:: Clean-Voided Midstream Performed By: #### I FE SERUM, SPE W INTERPRET, KAPPA #### [facility] , #### FE and TIBC, MG, TAYLOR, RENAL, PTH, [id number], CBCNO, URIC #### [address] Creatinine [Mass/volume] in Serum or PlasmaOrdered By: Lizette Schaffer on 09-22-2024 Creatinine [Mass/Vol] 2.25 mg/dL High 0.60-1.20 [facility] Comment on above: Performed By: #### I FE SERUM, SPE W INTERPRET, KAPPA #### [facility] , #### FE and TIBC, MG, TAYLOR, RENAL, PTH, [id number], CBCNO, URIC #### [address] Creatinine [Mass/volume] in UrineOrdered By: Lieztte Schaffer on 09-22-2024 Creatinine (U) [Mass/Vol] 153.00 mg/dL [facility] Comment on above: No reference range e stablished Dipstick and Microscopicon 0 09-22-2024 Bacteria,Urine 1+ [HPF] Normal None Seen [facility] Comment on above: Order Comment: Name Collection Type:: Clean-Voided Midstream Performed By: #### I FE SERUM, SPE W INTERPRET, KAPPA #### [facility] , #### FE and TIBC, MG, TAYLOR, RENAL, PTH, [id number], CBCNO, URIC #### [facility] [address] [place] [address] [place] Bilirubin,Urine Negative Normal Negative [facility] Comment on above: Order Comment: Name Collection Type:: Clean-Voided Midstream Performed By: #### I FE SERUM, SPE W INTERPRET, KAPPA #### [facility] , #### FE and TIBC, MG, TAYLOR, RENAL, PTH, [id number], CBCNO, URIC #### [address] Glucose Ql (U) Normal Normal Normal [facility] Comment on above: Order Comment: Name Collection Type:: Clean-Voided Midstream Performed By: #### I FE SERUM, SPE W INTERPRET, KAPPA #### [facility] , #### FE and TIBC, MG, TAYLOR, RENAL, PTH, [id number], CBCNO, URIC #### [address] Hyaline Casts,Urine 0-8 Normal 0-8 [facility] Comment on above: Order Comment: Name Collection Type:: Clean-Voided Midstream Performed By: #### I FE SERUM, SPE W INTERPRET, KAPPA #### [facility] , #### FE and TIBC, MG, TAYLOR, RENAL, PTH, [id number], CBCNO, URIC #### [address] Mucus,Urine Rare Normal [facility] Comment on above: Order Comment: Name Collection Type:: Clean-Voided Midstream Result Comment: PERF ORMED BY: [place] [address] PATHOLOGIST SLACKMAN CASSIDY CASIANO M.D. Performed By: #### I FE SERUM, SPE W INTERPRET, KAPPA #### [facility] , #### FE and TIBC, MG, TAYLOR, RENAL, PTH, [id number], CBCNO, URIC #### [address] Nitrite,Urine Negative Normal Negative [facility] Comment on above: Order Comment: Name Collection Type:: Clean-Voided Midstream Performed By: #### I FE SERUM, SPE W INTERPRET, KAPPA #### [facility] , #### FE and TIBC, MG, TAYLOR, RENAL, PTH, [id number], CBCNO, URIC #### [address] Occult Blood,Urine Negative Normal Negative [facility] Comment on above: Order Comment: Name Collection Type:: Clean-Voided Midstream Performed By: #### I FE SERUM, SPE W INTERPRET, KAPPA #### [facility] , #### FE and TIBC, MG, TAYLOR, RENAL, PTH, [id number], CBCNO, URIC #### [address] Protein,Urine Negative Normal Negative [facility] Comment on above: Order Comment: Name Collection Type:: Clean-Voided Midstream Performed By: #### I FE SERUM, SPE W INTERPRET, KAPPA #### [facility] , #### FE and TIBC, MG, TAYLOR, RENAL, PTH, [id number], CBCNO, URIC #### [address] RBC,Urine 1-2 Normal 0-4 [facility] Comment on above: Order Comment: Name Collection Type:: Clean-Voided Midstream Performed By: #### I FE SERUM, SPE W INTERPRET, KAPPA #### [facility] , #### FE and TIBC, MG, TAYLOR, RENAL, PTH, [id number], CBCNO, URIC #### [address] Specificy [place],Urine 1.018 Normal 1.001-1.030 [facility] Comment on above: Order Comment: Name Collection Type:: Clean-Voided Midstream Performed By: #### I FE SERUM, SPE W INTERPRET, KAPPA #### [facility] , #### FE and TIBC, MG, TAYLOR, RENAL, PTH, [id number], CBCNO, URIC #### [address] Squamous Epithelial Cell,Urine 5-9 Normal 0-2 [facility] Comment on above: Order Comment: Name Collection Type:: Clean-Voided Midstream Performed By: #### I FE SERUM, SPE W INTERPRET, KAPPA #### [facility] , #### FE and TIBC, MG, TAYLOR, RENAL, PTH, [id number], CBCNO, URIC #### [facility] [address] [place] [address] Urobilinogen,Urine Normal Normal Normal [facility] Comment on above: Order Comment: Name Collection Type:: Clean-Voided Midstream Performed By: #### I FE SERUM, SPE W INTERPRET, KAPPA #### [facility] , #### FE and TIBC, MG, TAYLOR, RENAL, PTH, [id number], CBCNO, URIC #### [address] WBC,Urine 5-9 Normal 0-4 [facility] Comment on above: Order Comment: Name Collection Type:: Clean-Voided Midstream Performed By: #### I FE SERUM, SPE W INTERPRET, KAPPA #### [facility] , #### FE and TIBC, MG, TAYLOR, RENAL, PTH, [id number], CBCNO, URIC #### [address] Epithelial cells.squamous [# /area] in Urine sediment by Automated countOrdered By: Lizette Bojorquezr on 09-22-2024 Epithelial cells.squamous Auto (Urine sed) [#/Area] 5-9 [HPF] High 0-2 [facility] Erythrocyte distribution wid th [Ratio] by Automated countOrdered By: Lizette Sarbjit on 09-22-2024 Erythrocyte distribution width (RBC) [Ratio] 15.0 % Normal 11.9-15.3 [facility] Comment on above: Performed By: #### I FE SERUM, SPE W INTERPRET, KAPPA #### [facility] , #### FE and TIBC, MG, TAYLOR, RENAL, PTH, [id number], CBCNO, URIC #### [facility] [address] Erythrocytes [#/area] in Uri ne sediment by Automated countOrdered By: Lizette Schaffer on 09-22-2024 RBC Auto (Urine sed) [#/Area] 1-2 [HPF] 0-4 [facility] Erythrocytes [#/volume] in B lood by Automated countOrdered By: Lizette Bojorquezr on 09-22-2024 RBC (Bld) [#/Vol] 4.26 10*6/uL Normal 3.60-5.00 [facility] Comment on above: Performed By: #### I FE SERUM, SPE W INTERPRET, KAPPA #### [facility] , #### FE and TIBC, MG, TAYLOR, RENAL, PTH, [id number], CBCNO, URIC #### [address] Ferritin [Mass/volume] in Se rum or PlasmaOrdered By: Lizette Connerdir on 09-22-2024 Ferritin [Mass/Vol] 73.7 ng/mL Normal 11.0-306.8 [facility] Comment on above: Performed By: #### I FE SERUM, SPE W INTERPRET, KAPPA #### [facility] , #### FE and TIBC, MG, TAYLOR, RENAL, PTH, [id number], CBCNO, URIC #### [facility] [address] [place] [address] Free K+L LT Chains, Qn, Son 09-22-2024 Free Doland Light Chains, S 46.0 mg/L Normal 3.3-19.4 [facility] Comment on above: Performed By: #### I FE SERUM, SPE W INTERPRET, KAPPA #### [facility] , #### FE and TIBC, MG, TAYLOR, RENAL, PTH, [id number], CBCNO, URIC #### [facility] [address] [place] [address] Free Lambda Light Chains, S 25.9 mg/L Normal 5.7-26.3 [facility] Comment on above: Performed By: #### I FE SERUM, SPE W INTERPRET, KAPPA #### [facility] , #### FE and TIBC, MG, TAYLOR, RENAL, PTH, [id number], CBCNO, URIC #### [facility] [address] Doland/Lambda Ratio, S 1.78 Normal 0.26-1.65 [facility] Comment on above: Result Comment: Perf ormed at: - [facility] [address] [id number] [employer] Cool[employer] Installer: Jozef Medina PhD, Phone: [phone] PERFORMED BY: [address] [place] [address] PATHOLOGIST SLACKMAN CASSIDY CASIANO M.D. Performed By: #### I FE SERUM, SPE W INTERPRET, KAPPA #### [facility] , #### FE and TIBC, MG, TAYLOR, RENAL, PTH, [id number], CBCNO, URIC #### [facility] [address] [place] [address] Glucose [Mass/volume] in Ser um or PlasmaOrdered By: Lizette Schaffer on 09-22-2024 Glucose [Mass/Vol] 95 mg/dL Normal 70-100 [facility] Comment on above: ADA recommended refe rence rangeRandom Glucose Reference Range is dependent on time and content of last meal. Glucose of more than 200 mg/dL in a nonstressed, ambulatory subject supports the diagnosis of Diabetes Mellitus. Result Comment: [place] Glucose Reference Range is dependent on time and content of last meal. Glucose of more than 200 mg/dL in a nonstressed, ambulatory subject supports the diagnosis of Diabetes Mellitus. ADA recommended reference range Performed By: #### I FE SERUM, SPE W INTERPRET, KAPPA #### [facility] , #### FE and TIBC, MG, TAYLOR, RENAL, PTH, [id number], CBCNO, URIC #### [facility] [address] Glucose [Mass/volume] in Uri ne by Test stripOrdered By: Lizette Schaffer on 09-22-2024 Glucose Test strip (U) [Mass/Vol] Normal mg/dL Normal [facility] Hematocrit [Volume Fraction] of Blood by Automated countOrdered By: Lizette Sarbjit on 09-22-2024 Hematocrit (Bld) [Volume fraction] 37.9 % Normal 34.0-46.4 [facility] Comment on above: Performed By: #### I FE SERUM, SPE W INTERPRET, KAPPA #### [facility] , #### FE and TIBC, MG, TAYLOR, RENAL, PTH, [id number], CBCNO, URIC #### [address] Hemoglobin Test strip Ql (U) Ordered By: Lizette Schaffer on 09-22-2024 Hemoglobin Ql (U) Negative Negative [facility] Hemoglobin [Mass/volume] in BloodOrdered By: Lizette Schaffer on 09-22-2024 Hemoglobin (Bld) [Mass/Vol] 12.3 g/dL Normal 11.8-15.4 [facility] Comment on above: Performed By: #### I FE SERUM, SPE W INTERPRET, KAPPA #### [facility] , #### FE and TIBC, MG, TAYLOR, RENAL, PTH, [id number], CBCNO, URIC #### [address] Hemogram CBC Without Diffon 09-22-2024 Mean Corpuscular HGB Conc 32.5 g/dL Normal 32.0-35.0 [facility] Comment on above: Performed By: #### I FE SERUM, SPE W INTERPRET, KAPPA #### [facility] , #### FE and TIBC, MG, TAYLOR, RENAL, PTH, [id number], CBCNO, URIC #### [address] White Blood Count 6.6 [CFU]/mL Normal 3.8-11.6 [facility] Comment on above: Performed By: #### I FE SERUM, SPE W INTERPRET, KAPPA #### [facility] , #### FE and TIBC, MG, TAYLOR, RENAL, PTH, [id number], CBCNO, URIC #### [address] Hyaline casts [#/area] in Ur ine sediment by Automated countOrdered By: Lizette Schaffer on 09-22-2024 Hyaline casts Auto (Urine sed) [#/Area] 0-8 [LPF] 0-8 [facility] Immunofixation for UrineOrde red By: Lizette Schaffer on 09-22-2024 Interpretation Immunofixation (U) [Interp] Comment: . [facility] Comment on above: Presence of monoclon al protein is unclear at this time. Suggestrepeat in 3 to 6 months if clinically indicated.Performed at: [facility] [address] [id number] Director: Jozef Medina PhD, Phone: [phone] Immunofixation, (JOSE), Urine on 09-22-2024 Immunofixation, (JOSE), Urine Comment: Normal . [facility] Comment on above: Result Comment: Pres ence of monoclonal protein is unclear at this time. Suggest repeat in 3 to 6 months if clinically indicated. Performed at: [facility] [id number] Evapor[employer] Cool[employer] Installer: Jozef Medina PhD, Phone: [phone] PERFORMED BY: [place] [address] PATHOLOGIST SLACKMAN CASSDIY CASIANO M.D. Performed By: #### I FE SERUM, SPE W INTERPRET, KAPPA #### [facility] , #### FE and TIBC, MG, TAYLOR, RENAL, PTH, [id number], CBCNO, URIC #### [address] Immunofixation,Serumon 09-22 Immunofixation, Serum Comment Normal . [facility] Comment on above: Result Comment: No m onoclonality detected. Performed By: #### I FE SERUM, SPE W INTERPRET, KAPPA #### [facility] , #### FE and TIBC, MG, TAYLOR, RENAL, PTH, [id number], CBCNO, URIC #### [facility] [address] Immunoglobulin A, Serum 184 mg/dL Normal 64-422 [facility] Comment on above: Performed By: #### I FE SERUM, SPE W INTERPRET, KAPPA #### [facility] , #### FE and TIBC, MG, TAYLOR, RENAL, PTH, [id number], CBCNO, URIC #### [facility] [address] Immunoglobulin G 1018 mg/dL Normal 586-1602 [facility] Comment on above: Performed By: #### I FE SERUM, SPE W INTERPRET, KAPPA #### [facility] , #### FE and TIBC, MG, TAYLOR, RENAL, PTH, [id number], CBCNO, URIC #### [facility] [address] Immunoglobulin M, Serum 91 mg/dL Normal 26-217 [facility] Comment on above: Result Comment: Perf ormed at: - [facility] [address] [id number] Evaporative Cooler Installer: Jozef Medina PhD, Phone: [phone] Performed By: #### I FE SERUM, SPE W INTERPRET, KAPPA #### [facility] , #### FE and TIBC, MG, TAYLOR, RENAL, PTH, [id number], CBCNO, URIC #### [facility] [address] [place], [place] [id number] [facility] Iron [Mass/volume] in Serum or PlasmaOrdered By: Lizette Schaffer on 09-22-2024 Iron [Mass/Vol] 54 ug/dL Normal 50-212 [facility] Comment on above: Performed By: #### I FE SERUM, SPE W INTERPRET, KAPPA #### [facility] , #### FE and TIBC, MG, TAYLOR, RENAL, PTH, [id number], CBCNO, URIC #### [facility] [address] Iron and TIBC Profileon 09-12 % Iron Saturation 22.0 % Normal 20-50 [facility] Comment on above: Performed By: #### I FE SERUM, SPE W INTERPRET, KAPPA #### [facility] , #### FE and TIBC, MG, TAYLOR, RENAL, PTH, [id number], CBCNO, URIC #### [facility] [address] [place] [address] Total Iron Binding Capacity 245 ug/dL Low 255-450 [facility] Comment on above: Performed By: #### I FE SERUM, SPE W INTERPRET, KAPPA #### [facility] , #### FE and TIBC, MG, TAYLOR, RENAL, PTH, [id number], CBCNO, URIC #### [facility] [address] [place] [address] Ketones [Presence] in Urine by Test stripOrdered By: Lizette Schaffer on 09-22-2024 Ketones Ql (U) Negative Normal Negative [facility] Comment on above: Order Comment: Name Collection Type:: Clean-Voided Midstream Performed By: #### I FE SERUM, SPE W INTERPRET, KAPPA #### [facility] , #### FE and TIBC, MG, TAYLOR, RENAL, PTH, [id number], CBCNO, URIC #### [facility] [address] [place] [address] Leukocyte esterase [Presence ] in Urine by Test stripOrdered By: Lizette Schaffer on 09-22-2024 Leukocyte esterase Test strip Ql (U) 1+ Normal Negative [facility] Comment on above: Order Comment: Name Collection Type:: Clean-Voided Midstream Performed By: #### I FE SERUM, SPE W INTERPRET, KAPPA #### [facility] , #### FE and TIBC, MG, TAYLOR, RENAL, PTH, [id number], CBCNO, URIC #### [facility] [address] [place] [address] Leukocytes [#/area] in Urine sediment by Automated countOrdered By: Lizette Sarbjit on 09-22-2024 WBC Auto (Urine sed) [#/Area] 5-9 [HPF] High 0-4 [facility] Leukocytes [#/volume] correc lani for nucleated erythrocytes in Blood by Automated counOrdered By: Lizette Sarbjit on 09-22-2024 WBC corrected for nucl RBC Auto (Bld) [#/Vol] 6.6 10*3/uL 3.8-11.6 [facility] MCH [Entitic mass] by Automa lani countOrdered By: Lizette Sarbjit on 09-22-2024 MCH (RBC) [Entitic mass] 28.9 pg Normal 24.7-34.3 [facility] Comment on above: Performed By: #### I FE SERUM, SPE W INTERPRET, KAPPA #### [facility] , #### FE and TIBC, MG, TAYLOR, RENAL, PTH, [id number], CBCNO, URIC #### [facility] [address] [place] [address] MCHC Auto (RBC) [Mass/Vol]Or dered By: Lizette Sarbjit on 09-22-2024 MCHC (RBC) [Mass/Vol] 32.5 g/dL 32.0-35.0 [facility] MCV [Entitic volume] by Auto mated countOrdered By: Lizette Sarbjit on 09-22-2024 MCV (RBC) [Entitic vol] 89.0 fL Normal 80-100 F [facility] Comment on above: Performed By: #### I FE SERUM, SPE W INTERPRET, KAPPA #### [facility] , #### FE and TIBC, MG, TAYLOR, RENAL, PTH, [id number], CBCNO, URIC #### [facility] [address] [place] [address] Magnesium [Mass/volume] in S bridgette or PlasmaOrdered By: Lizette Schaffer on 09-22-2024 Magnesium [Mass/Vol] 1.7 mg/dL Low 1.9-2.7 [facility] Comment on above: Performed By: #### I FE SERUM, SPE W INTERPRET, KAPPA #### [facility] , #### FE and TIBC, MG, TAYLOR, RENAL, PTH, [id number], CBCNO, URIC #### [facility] [address] Mucus [Presence] in Urine by AutomatedOrdered By: Lizette Schaffer on 09-22-2024 Mucus Auto Ql (U) Rare [LPF] [facility] Nitrite Test strip Ql (U)Ord ered By: Lizette Schaffer on 09-22-2024 Nitrite Ql (U) Negative Negative [facility] No Panel InformationOrdered By: Lizette Schaffer on 09-22-2024 Protein Electrophoresis M-Benjy Not observed g/dL Not Observed [facility] Protein Electrophoresis Note Comment . [facility] Comment on above: Protein electrophore sis scan will follow via computer,mail, or brick handler delivery.Performed at: [facility] [id number] [place] [address] [id number] Director: Jozef Medina PhD, Phone: [phone] Estimated GFR (CKD-EPI) 22.480 mL/Min [facility] Creatinine Clearance (Chem N/A [facility] Protein Electrophoresis Interpret Comment . [facility] Comment on above: Faint band in gamma region suspicious for monoclonalimmunoglobulin. This band may represent a benign spike asseen in older people or could be a paraprotein as seen inMultiple Myeloma, Waldenstrom's Macroglobulinemia orLymphoma. Depending on clinical circumstances, furtherdiagnostic studies may include serum immunofixation orserum free light chain quantitation.Performed at: [facility] [id number] [place], [place] [id number] Director: Jozef Medina PhD, Phone: [phone] Parathyrin.intact [Mass/volu me] in Serum or PlasmaOrdered By: Lizette Sarbjit on 09-22-2024 Parathyrin.intact [Mass/Vol] 68.7 pg/mL [facility] Parathyroid Hormone Intacton 09-22-2024 Parathyroid Hormone Intact 68.7 pg/mL Normal [facility] Comment on above: Result Comment: PERF ORMED BY: [place] [address] PATHOLOGIST SLACKMAN CASSIDY CASIANO M.D. Performed By: #### I FE SERUM, SPE W INTERPRET, KAPPA #### [facility] , #### FE and TIBC, MG, TAYLOR, RENAL, PTH, [id number], CBCNO, URIC #### [facility] [address] [place] [address] Phosphate [Mass/volume] in S bridgette or PlasmaOrdered By: Lizette Schaffer on 09-22-2024 Phosphate [Mass/Vol] 3.6 mg/dL Normal 2.5-4.5 [facility] Comment on above: Performed By: #### I FE SERUM, SPE W INTERPRET, KAPPA #### [facility] , #### FE and TIBC, MG, TAYLOR, RENAL, PTH, [id number], CBCNO, URIC #### [facility] [address] [place] [address] Platelet mean volume [Entiti c volume] in Blood by Automated countOrdered By: Lizette Schaffer on 09-22-2024 Platelet mean volume (Bld) [Entitic vol] 8.1 fL Normal 6.3-10.7 [facility] Comment on above: Result Comment: PERF ORMED BY: [place] [address] PATHOLOGIST SLACKMAN CASSIDY CASIANO M.D. Performed By: #### I FE SERUM, SPE W INTERPRET, KAPPA #### [facility] , #### FE and TIBC, MG, TAYLOR, RENAL, PTH, [id number], CBCNO, URIC #### [facility] [address] [place] [address] Platelets [#/volume] in Bloo d by Automated countOrdered By: Lizette Schaffer on 09-22-2024 Platelets (Bld) [#/Vol] 212 10*3/uL Normal 150-450 [facility] Comment on above: Performed By: #### I FE SERUM, SPE W INTERPRET, KAPPA #### [facility] , #### FE and TIBC, MG, TAYLOR, RENAL, PTH, [id number], CBCNO, URIC #### [address] Potassium [Moles/volume] in Serum or PlasmaOrdered By: Lizette Schaffer on 09-22-2024 Potassium [Moles/Vol] 5.7 mmol/L High 3.5-5.1 [facility] Comment on above: Performed By: #### I FE SERUM, SPE W INTERPRET, KAPPA #### [facility] , #### FE and TIBC, MG, TAYLOR, RENAL, PTH, [id number], CBCNO, URIC #### [address] Prot Electrophoresis w/Inter raul 09-22-2024 Albumin [Mass/Vol] 3.2 g/dL Normal 2.9-4.4 [facility] Comment on above: Performed By: #### I FE SERUM, SPE W INTERPRET, KAPPA #### [facility] , #### FE and TIBC, MG, TAYLOR, RENAL, PTH, [id number], CBCNO, URIC #### [address] Albumin/Globulin [Mass ratio] 1.1 {ratio} Normal 0.7-1.7 [facility] Comment on above: Performed By: #### I FE SERUM, SPE W INTERPRET, KAPPA #### [facility] , #### FE and TIBC, MG, TAYLOR, RENAL, PTH, [id number], CBCNO, URIC #### [facility] [address] [place] [address] Flmcp-6-Vymgmpoe 0.3 g/dL Normal 0.0-0.4 [facility] Comment on above: Performed By: #### I FE SERUM, SPE W INTERPRET, KAPPA #### [facility] , #### FE and TIBC, MG, TAYLOR, RENAL, PTH, [id number], CBCNO, URIC #### [address] Szvig-1-Dkrleagg 0.8 g/dL Normal 0.4-1.0 [facility] Comment on above: Performed By: #### I FE SERUM, SPE W INTERPRET, KAPPA #### [facility] , #### FE and TIBC, MG, TAYLOR, RENAL, PTH, [id number], CBCNO, URIC #### [address] Beta Globulin 0.9 g/dL Normal 0.7-1.3 [facility] Comment on above: Performed By: #### I FE SERUM, SPE W INTERPRET, KAPPA #### [facility] , #### FE and TIBC, MG, TAYLOR, RENAL, PTH, [id number], CBCNO, URIC #### [address] Gamma Globulin 0.9 g/dL Normal 0.4-1.8 [facility] Comment on above: Performed By: #### I FE SERUM, SPE W INTERPRET, KAPPA #### [facility] , #### FE and TIBC, MG, TAYLOR, RENAL, PTH, [id number], CBCNO, URIC #### [facility] [address] [place] [address] [place] Globulin (S) [Mass/Vol] 2.9 g/dL Normal 2.2-3.9 [facility] Comment on above: Performed By: #### I FE SERUM, SPE W INTERPRET, KAPPA #### [facility] , #### FE and TIBC, MG, TAYLOR, RENAL, PTH, [id number], CBCNO, URIC #### [address] M-Benjy Comment: Normal Not Observed [facility] Comment on above: Result Comment: SPE shows an asymmetrical gamma. Performed By: #### I FE SERUM, SPE W INTERPRET, KAPPA #### [facility] , #### FE and TIBC, MG, TAYLOR, RENAL, PTH, [id number], CBCNO, URIC #### [address] Protein [Mass/Vol] 6.1 g/dL Normal 6.0-8.5 [facility] Comment on above: Performed By: #### I FE SERUM, SPE W INTERPRET, KAPPA #### [facility] , #### FE and TIBC, MG, TAYLOR, RENAL, PTH, [id number], CBCNO, URIC #### [address] SPE-Interpretation Comment Normal . [facility] Comment on above: Result Comment: Madhu t band in gamma region suspicious for monoclonal immunoglobulin. This band may represent a benign spike as seen in older people or could be a paraprotein as seen in Multiple Myeloma, Waldenstrom's Macroglobulinemia or Lymphoma. Depending on clinical circumstances, further diagnostic studies may include serum immunofixation or serum free light chain quantitation. Performed at: [facility] [id number] [employer] Installer: Jozef Medina PhD, Phone: [phone] Performed By: #### I FE SERUM, SPE W INTERPRET, KAPPA #### [facility] , #### FE and TIBC, MG, TAYLOR, RENAL, PTH, [id number], CBCNO, URIC #### [address] SPE-Note Comment Normal . [facility] Comment on above: Result Comment: Prot ein electrophoresis scan will follow via computer, mail, or brick handler delivery. Performed By: #### I FE SERUM, SPE W INTERPRET, KAPPA #### [facility] , #### FE and TIBC, MG, TAYLOR, RENAL, PTH, [id number], CBCNO, URIC #### [address] Protein Creat Ratio Ur Rando mon 09-22-2024 Creatinine, Urine (Random) 153.00 mg/dL Normal [facility] Comment on above: Result Comment: No r eference range established Performed By: #### I FE SERUM, SPE W INTERPRET, KAPPA #### [facility] , #### FE and TIBC, MG, TAYLOR, RENAL, PTH, [id number], CBCNO, URIC #### [address] Urine Protein/Creatinine Ratio 105 mg/g{Cre} Normal 0-200 [facility] Comment on above: Result Comment: PERF ORMED BY: [place] [address] PATHOLOGIST SLACKMAN CASSIDY CASIANO M.D. Performed By: #### I FE SERUM, SPE W INTERPRET, KAPPA #### [facility] , #### FE and TIBC, MG, TAYLOR, RENAL, PTH, [id number], CBCNO, URIC #### [address] Protein Electrophoresis, Ser umon 09-22-2024 Djpgu-2-Acpdwbsw 0.3 g/dL Normal 0.0-0.4 [facility] Comment on above: Performed By: #### I FE SERUM, SPE W INTERPRET, KAPPA #### [facility] , #### FE and TIBC, MG, TAYLOR, RENAL, PTH, [id number], CBCNO, URIC #### [address] Lfjcn-4-Ljuaowjr 0.8 g/dL Normal 0.4-1.0 [facility] Comment on above: Performed By: #### I FE SERUM, SPE W INTERPRET, KAPPA #### [facility] , #### FE and TIBC, MG, TAYLOR, RENAL, PTH, [id number], CBCNO, URIC #### [address] Beta Globulin 0.9 g/dL Normal 0.7-1.3 [facility] Comment on above: Performed By: #### I FE SERUM, SPE W INTERPRET, KAPPA #### [facility] , #### FE and TIBC, MG, TAYLOR, RENAL, PTH, [id number], CBCNO, URIC #### [address] Gamma Globulin 0.9 g/dL Normal 0.4-1.8 [facility] Comment on above: Performed By: #### I FE SERUM, SPE W INTERPRET, KAPPA #### [facility] , #### FE and TIBC, MG, TAYLOR, RENAL, PTH, [id number], CBCNO, URIC #### [address] M-Benjy Not Observed Normal Not Observed [facility] Comment on above: Performed By: #### I FE SERUM, SPE W INTERPRET, KAPPA #### [facility] , #### FE and TIBC, MG, TAYLOR, RENAL, PTH, [id number], CBCNO, URIC #### [address] SPE-Note Comment Normal . [facility] Comment on above: Result Comment: Prot ein electrophoresis scan will follow via computer, mail, or brick handler delivery. Performed at: [facility] [address] [id number] [employer] Installer: Jozef Medina PhD, Phone: [phone] PERFORMED BY: [place] [address] PATHOLOGIST SLACKMAN CASSIDY CASIANO M.D. Performed By: #### I FE SERUM, SPE W INTERPRET, KAPPA #### [facility] , #### FE and TIBC, MG, TAYLOR, RENAL, PTH, [id number], CBCNO, URIC #### [address] Protein Test strip (U) [Mass /Vol]Ordered By: Lizette Schaffer on 09-22-2024 Protein (U) [Mass/Vol] Negative Negative [facility] Protein [Mass/volume] in Uri neOrdered By: Lizette Schaffer on 09-22-2024 Protein (U) [Mass/Vol] 16 mg/dL High 0-9 [facility] Comment on above: Performed By: #### I FE SERUM, SPE W INTERPRET, KAPPA #### [facility] , #### FE and TIBC, MG, TAYLOR, RENAL, PTH, [id number], CBCNO, URIC #### [address] Renal Function Panelon 09-22 Albumin [Mass/Vol] 3.8 g/dL Normal 3.5-5.7 [facility] Comment on above: Performed By: #### I FE SERUM, SPE W INTERPRET, KAPPA #### [facility] , #### FE and TIBC, MG, TAYLOR, RENAL, PTH, [id number], CBCNO, URIC #### [address] GFR/1.73 sq M.predicted MDRD (S/P/Bld) [Vol rate/Area] 22.480 mL/min/{1.73_m2} Normal [facility] Comment on above: Performed By: #### I FE SERUM, SPE W INTERPRET, KAPPA #### [facility] , #### FE and TIBC, MG, TAYLOR, RENAL, PTH, [id number], CBCNO, URIC #### [address] Serum free kappa light chain measurementOrdered By: Lizette Schaffer on 09-22-2024 Immunoglobulin light chains.kappa.free (S) [Mass/Vol] 46.0 mg/L High 3.3-19.4 [facility] Serum globulin measurement ( mass/volume)Ordered By: Lizette Schaffer on 09-22-2024 Globulin (S) [Mass/Vol] 2.8 g/dL Normal 2.2-3.9 [facility] Comment on above: Performed By: #### I FE SERUM, SPE W INTERPRET, KAPPA #### [facility] , #### FE and TIBC, MG, TAYLOR, RENAL, PTH, [id number], CBCNO, URIC #### [facility] [address] Serum immunoglobulin free ka ppa light chains/immunoglobulin free lambda light chainsOrdered By: Lizette Schaffer on 09-22-2024 Immunoglobulin light chains.kappa.free/Immun oglobulin light chains.lambda.free (S) [Mass ratio] 1.78 High 0.26-1.65 [facility] Comment on above: Performed at: [facility] [place], [place] [id number] Director: Jozef Medina PhD, Phone: [phone] Serum or plasma IgA measurem ent (mass/volume)Ordered By: Lizette Schaffer on 09-22-2024 IgA [Mass/Vol] 184 mg/dL 64-422 [facility] Serum or plasma IgG measurem ent (mass/volume)Ordered By: Lizette Schaffer on 09-22-2024 IgG [Mass/Vol] 1018 mg/dL 586-1602 [facility] Serum or plasma IgM measurem ent (mass/volume)Ordered By: Lizette Schaffer on 09-22-2024 IgM [Mass/Vol] 91 mg/dL 26-217 [facility] Comment on above: Performed at: [facility] [place], [place] [id number] Director: Jozef Medina PhD, Phone: [phone] Serum or plasma albumin magen urement (mass/volume)Ordered By: Lizette Schaffer on 09-22-2024 Albumin [Mass/Vol] 3.2 g/dL Normal 2.9-4.4 [facility] Comment on above: Performed By: #### I FE SERUM, SPE W INTERPRET, KAPPA #### [facility] , #### FE and TIBC, MG, TAYLOR, RENAL, PTH, [id number], CBCNO, URIC #### [facility] [address] [place] [address] Serum or plasma albumin/glob ulin mass ratioOrdered By: Lizette Sarbjit on 09-22-2024 Albumin/Globulin [Mass ratio] 1.1 {ratio} Normal 0.7-1.7 [facility] Comment on above: Performed By: #### I FE SERUM, SPE W INTERPRET, KAPPA #### [facility] , #### FE and TIBC, MG, TAYLOR, RENAL, PTH, [id number], CBCNO, URIC #### [address] Serum or plasma alpha 1 glob ulin measurement by electrophoresis (mass/volume)Ordered By: Lizette Sarbjit on 09-22-2024 Alpha 1 globulin Elph [Mass/Vol] 0.3 g/dL 0.0-0.4 [facility] Serum or plasma alpha 2 glob ulin measurement by electrophoresis (mass/volume)Ordered By: Lizette Sarbjit on 09-22-2024 Alpha 2 globulin Elph [Mass/Vol] 0.8 g/dL 0.4-1.0 [facility] Serum or plasma anion gap de terminationOrdered By: Lizette Sarbjit on 09-22-2024 Anion gap [Moles/Vol] 10.3 mmol/L Normal 6.0-15.0 [facility] Comment on above: Performed By: #### I FE SERUM, SPE W INTERPRET, KAPPA #### [facility] , #### FE and TIBC, MG, TAYLOR, RENAL, PTH, [id number], CBCNO, URIC #### [facility] [address] [place] [address] Serum or plasma beta globuli n measurement by electrophoresis (mass/volume)Ordered By: Lizette Sarbjit on 09-22-2024 Beta globulin Elph [Mass/Vol] 0.9 g/dL 0.7-1.3 [facility] Serum or plasma gamma globul in measurement by electrophoresis (mass/volume)Ordered By: Lizette Schaffer on 09-22-2024 Gamma globulin Elph [Mass/Vol] 0.9 g/dL 0.4-1.8 [facility] Serum or plasma immunoglobul in free lambda light chains measurement (mass/volume)Ordered By: Lizette Schaffer on 09-22-2024 Immunoglobulin light chains.lambda.free [Mass/Vol] 25.9 mg/L 5.7-26.3 [facility] Serum or plasma iron binding capacity measurement (mass/volume)Ordered By: Lizette Schaffer on 09-22-2024 Iron binding capacity [Mass/Vol] 245 ug/dL Low 255-450 [facility] Serum or plasma iron saturat ion measurement (mass fraction)Ordered By: Lizette Schaffer on 09-22-2024 Iron saturation [Mass fraction] 22.0 % 20-50 [facility] Serum total protein measurem entOrdered By: Lizette Schaffer on 09-22-2024 Protein [Mass/Vol] 6.0 g/dL Normal 6.0-8.5 [facility] Comment on above: Performed By: #### I FE SERUM, SPE W INTERPRET, KAPPA #### [facility] , #### FE and TIBC, MG, TAYLOR, RENAL, PTH, [id number], CBCNO, URIC #### [facility] [address] [place] [address] [place] Sodium [Moles/volume] in Ser um or PlasmaOrdered By: Lizette Schaffer on 09-22-2024 Sodium [Moles/Vol] 138 mmol/L Normal 136-145 [facility] Comment on above: Performed By: #### I FE SERUM, SPE W INTERPRET, KAPPA #### [facility] , #### FE and TIBC, MG, TAYLOR, RENAL, PTH, [id number], CBCNO, URIC #### [facility] [address] [place] [id number] [place] Specific gravity Test strip (U) [Rel density]Ordered By: Lizette Sarbjit on 09-22-2024 Specific gravity (U) [Rel density] 1.018 1.001-1.030 [facility] Transferrin [Mass/volume] in Serum or PlasmaOrdered By: Lizette Sarbjit on 09-22-2024 Transferrin [Mass/Vol] 175 mg/dL Low 203-362 [facility] Comment on above: Performed By: #### I FE SERUM, SPE W INTERPRET, KAPPA #### [facility] , #### FE and TIBC, MG, TAYLOR, RENAL, PTH, [id number], CBCNO, URIC #### [facility] [address] [place] [address] [place] Urate [Mass/volume] in Serum or PlasmaOrdered By: Lizette Sarbjit on 09-22-2024 Urate [Mass/Vol] 7.9 mg/dL High 2.3-6.6 [facility] Comment on above: Performed By: #### I FE SERUM, SPE W INTERPRET, KAPPA #### [facility] , #### FE and TIBC, MG, TAYLOR, RENAL, PTH, [id number], CBCNO, URIC #### [facility] [address] [place] [address] [place] Urea nitrogen [Mass/volume] in Serum or PlasmaOrdered By: Lizette Sarbjit on 09-22-2024 Urea nitrogen [Mass/Vol] 40 mg/dL High 7-25 [facility] Comment on above: Performed By: #### I FE SERUM, SPE W INTERPRET, KAPPA #### [facility] , #### FE and TIBC, MG, TAYLOR, RENAL, PTH, [id number], CBCNO, URIC #### [facility] [address] [place] [address] [place] Urine Cultureon 09-22-2024 Bacteria identified Cx Nom (U) <9,000 colonies/ml mixed bacterial skin contaminants 2 Days PERFORMED BY: [place] [address] PATHOLOGIST SLACKMAN CASSIDY CASIANO M.D. Normal [facility] Comment on above: Performed By: #### I FE SERUM, SPE W INTERPRET, KAPPA #### [facility] , #### FE and TIBC, MG, TAYLOR, RENAL, PTH, [id number], CBCNO, URIC #### [facility] [address] Urine cultureOrdered By: Abd ul Sarbjit on 09-22-2024 Bacteria identified Cx Nom (U) 2 Days [facility] Urine protein/creatinine rat ioOrdered By: Lizette Sarbjit on 09-22-2024 Protein/Creatinine (U) [Ratio] 105 mg/g{Cre} 0-200 [facility] Urobilinogen Test strip (U) [Mass/Vol]Ordered By: Lizette Sarbjit on 09-22-2024 Urobilinogen (U) [Mass/Vol] Normal mg/dL Normal [facility] Vitamin D 25 Hydroxy Totalon 09-22-2024 Vitamin D 25 Hydroxy Total 29.7 ng/mL Low 30-100 [facility] Comment on above: Result Comment: GABRIELA MIN D STATUS 25(OH)VITAMIN D RANGE (ng/mL) Deficient <20 Insufficient 20 to <30 Sufficient 30 to 100 Reference: Jo MF,Jessica NC, Elizabeth LAMBERT, et al. Evaluation,treatment, and prevention of vitamin D deficiency; an Endocrine Society clinical practice guideline. JCEM. 2010; 96(7):1911-30. PERFORMED BY: [address] [place] [address] PATHOLOGIST SLACKMAN CASSIDY CASIANO M.D. Performed By: #### I FE SERUM, SPE W INTERPRET, KAPPA #### [facility] , #### FE and TIBC, MG, TAYLOR, RENAL, PTH, [id number], CBCNO, URIC #### [address] Vitamin D+Metabolites [Mass/ volume] in Serum or PlasmaOrdered By: Lizette Sarbjit on 09-22-2024 Vitamin D+Metabolites [Mass/Vol] 29.7 ng/mL Low 30-100 [facility] Comment on above: VITAMIN D STATUS 25( [place])VITAMIN D RANGE (ng/mL) Deficient <20 Insufficient 20 to <30Sufficient 30 to 100Reference: Jo MF,Jessica PENA, Elizabeth LAMBERT, et al. Evaluation,treatment, and prevention of vitamin D deficiency; an Endocrine Society clinical practice guideline. JCEM. 2010; 96(7):1911-30. pH of Urine by Test stripOrd ered By: Lizette Schaffer on 09-22-2024 pH (U) 5.0 [pH] Normal 5.0-9.0 [facility] Comment on above: Order Comment: Name Collection Type:: Clean-Voided Midstream Performed By: #### I FE SERUM, SPE W INTERPRET, KAPPA #### [facility] , #### FE and TIBC, MG, TAYLOR, RENAL, PTH, [id number], CBCNO, URIC #### [address] Ambulatory Visit Summaryon 0 08-21-2024 Ambulatory Visit Summary Ambulatory Visit Summary VERO [...] ROSETTA MENDEZ MD Where: [facility] [address], [address] [place] [address]- You Need to Schedule the Following Appointments Follow Up with BRYAN BELTRÁN, ROSETTA, SASKIA When: Where: Medications What How Much [...] in w (more content not included)... Normal [facility] Urology Office/Clinic Noteon 08-21-2024 Urology Office/Clinic Note [...] with voice recognition artificial intelligence software, specifically [employer], Need and or [employer]. Substitutions may have occurred due to the [...] Kidney stones (N20.0: Calculus of kidney) RBUS 02/14/24 - No hydro. 4 mm LMP lesion and 9 mm LIP lesion. Most likely renal stones. 5. 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 [2] Increased risk for UCC. S/p cysto 05/19/24 - neg for b.t. or stones. 6. Aspirin long-term use (Z79.82: intermediate (current) use of aspirin) ASA. No BTs. Has pacemaker. Hx of [place] but was asx, not sure when it [...] Information BRYAN BELTRÁN, ROSETTA, URL Additional Instructions: 6 mos Patient Education Urinary Incontinence IFederica, personally scribed for Dr. Desai on 08/21/2024 [...] data Pr (more content not included)... Normal [facility] Comment on above: Result Comment: Elec tronically Signed By: BRYAN BELTRÁN, ROSETTA\.br\Date and Time Signed: 08/21/24 11:14 EDT\.br\Electronically Co-Signed By: Federica Luna\.br\Date and Time Co-Signed: 08/21/24 11:[address] Posterior fossa WO contra ston 08-15-2024 [place] [address] CT Scan Report Signed Patient: VERO SADLER MR#: [id number] : 1950 Acct:[id number] Age/Sex: 74 / F ADM Date: 08/15/24 Loc: CT Attending Dr: John Mathews M.D. Ordering Physician: John Mathews M.D. Date of Service: 08/15/24 Procedure(s): CT int auditory canals w/o con [facility] Number(s): [id number] cc: Debbie Bhatia M.D. [place] [address] Patient Name: VERO SADLER MRN: [id number] date: 1950 Sex: F Assigned Patient Location: CT Current Patient Location: CT Accession/Order Number: [id number] Exam Date: 08/15/2024 14:47 Report Date: 08/15/2024 [...] Gutierrez M.D. 08/15/2024 2:51 PM Dictation Location: [place] [address] Electronically authenticated by: [id number] Y Date: 08/15/2024 14:51 Dictated By: Victor Manuel Gutierrez M.D. Signed By: 08/15/24 1454 DD/ 1451 TD/TT: Property Claims Adjuster: [facility] Radiology, Radiologi MD sim - 08/15/2024 [place] [address] CT Scan Report Signed Patient: VERO SADLER MR#: [id number] : 1950 Acct:[id number] Age/Sex: 74 / F ADM Date: 08/15/24 Loc: CT Attending Dr: John Mathews M.D. Ordering Physician: John Mathews M.D. Date of Service: 08/15/24 Procedure(s): CT int auditory canals w/o con Accession Number(s): [id number] cc: Debbie Bhatia M.D. [address] [address] Patient Name: VERO SADLER MRN: [id number] date: 1950 Sex: F Assigned Patient Location: CT Current Patient Location: CT Accession/Order Number: [id number] Exam Date: 08/15/2024 14:47 Report Date: 08/15/2024 [...] Gutierrez M.D. 08/15/2024 2:51 PM Dictation Location: [place] [address] Electronically authenticated by: [id number] Y Date: 08/15/2024 14:51 Dictated By: Victor Manuel Gutierrez M.D. Signed By: 08/15/24 1454 DD/ 145 TD/TT: Property Claims Adjuster: [facility] RegisterPatient Radiology Study observation (narrative) [facility] CT Posterior fossa WO contra stOrdered By: Radiologist Radiology on 08-15-2024 [facility] RegisterPatient Work Phone: Orders Onlyon 08-11-2024 Orders Only [id number] Brian Sadler se 1950 F Date Provider Department Center 08/11/2024 JOSEY ARNOLD HVC CARD [facility] Family History Problem Relation Age of Onset Other Mother Coronary artery disease Mother Other Mother Other Mother Other Father Hypertension Father Hyperlipidemia Father Other Daughter Family Status - Relation Status Age at Mother Father Daughter Normal [facility] Orders Only [id number] Brian Sadler se 1950 F Date Provider Department Center 08/11/2024 OLLIE HALLMAN HVC CARD [facility] Family History Problem Relation Age of Onset Other Mother Coronary artery disease Mother Other Mother Other Mother Other Father Hypertension Father Hyperlipidemia Father Other Daughter Family Status - Relation Status Age at Mother Father Daughter Normal [facility] No Panel InformationOrdered By: Kal Molina on 07-19-2024 Miscellaneous Pathology Test See comment [facility] Comment on above: See report. Scanned copy available in EMR. Pathology Request for Lab Co rpon 07-19-2024 Pathology Request for Lab [place] Normal [facility] Comment on above: Order Comment: GI SP ECIMEN Result Comment: See report. Scanned copy available in EMR. PERFORMED BY: [place] [address] PATHOLOGIST SLACKMAN GENE BARRAGAN M.D. Performed By: #### I FE SERUM, SPE W INTERPRET, KAPPA #### [facility] , #### FE and TIBC, MG, TAYLOR, RENAL, PTH, SGRC60CW, CBCNO, URIC #### [address] Main OR Intraoperative Recor don 07-14-2024 Main OR Intraoperative Record Main OR Intraoperative Record IntraOp Document Type FT Summary Primary Physician: ROSETTA MENDEZ MD Finalized Date/Time: 07/14/24 10:37:22 Pt. Name: VERO SADLER/Sex: 1950 Female Med Rec #: [id number] Physician: ROSETTA MENDEZ MD Financial #: [id number] Pt. Type: A Room/Bed: [place] [address] Admit/Disch: 07/13/24 07:02:16 - 07/13/24 11:00:00 Institution: [...] Anesthesiologist Surgeon - Primary Scrub - Primary Waste/Materials Exchange Specialist Time In 07/13/24 08:50:00 07/13/24 08:50:00 07/13/24 08:50:00 Time Out 07/13/24 09:14:00 07/13/24 09:14:00 07/13/24 09:14:00 Procedure BULKAMID PROCEDURE(.) BULKAMID PROCEDURE(.) BULKAMID PROCEDURE(.) Comments dr. walden rides supervisor Last Modified By: Andrew Holly Ii, Alfons Ii F Letrondo, Alfons Ii F 07/13/24 09:22:03 07/13/24 09:22:03 07/13/24 09:22:03 Entry 4 Case Attendee Andrew Holly Ii Role Performed Head Stock Operator - Primary Time In 07/13/24 08:50:00 Time [...] and tissue Entry 1 Skin Integrity Intact, [place], Warm, & Skin Abnormality No Dry Outcomes [...] Stirrup Posit (more content not included)... Normal [facility] Discharge Instructionson Discharge Instructions Discharge Instruc [...] 12 hours Duration: 5 Days Pickup at [facility]/pharmacy #[id number] New phenazopyridine (Pyridium 100 mg Tab) 1 Tablets By Mouth 3 times a day Duration: 3 Days Pickup at [facility]/pharmacy #6177 Unchanged albuterol (Albuterol (Eqv-ProAir HFA)) [...] Mouth 2 times a day Pharmacy Information [facility]/pharmacy #[id number]: [address], [place] [id number] [phone] Allergies Adhesive Bandage (Hives) Education Materials Common [...] signed up for this yet, please contact [employer] at [phone] to get signed up today. Patient Name: VERO SADLER I have received this information and my questions have been answered. Patient/Academic Counselor Name: Patient/Academic Counselor Signature: Relationship to Patient: Witness Name/Signature: Date: _ (more content not included)... [facility] Comment on above: Result Comment: Elec tronically Signed By: Virgie BRODY, Patricia Cohen\.br\Date and Time Signed: 07/13/24 10:41 EDT Main OR PACU I Recordon 050 Main OR PACU I Record Main OR PACU I Rec ord PACU Phase I Document Type FT Summary Primary Physician: ROSETTA MENDEZ MD Finalized Date/Time: 07/13/24 09:53:55 Pt. Name: SADLER VEROLaazro Bartlett/Sex: 1950 Female Med Rec #: [id number] Physician: ROSETTA MENDEZ MD Financial #: [id number] Pt. Type: A Room/Bed: [facility] Admit/Disch: 07/13/24 07:02:16 - Institution: Case Times [...] By: Orin Richmond RN 07/13/24 09:53 Normal [facility] Main OR PACU II Recordon Main OR PACU II Record Main OR PACU II R ecord PACU Phase II Document Type FT Summary Primary Physician: ROSETTA MENDEZ MD Finalized Date/Time: 07/13/24 15:25:20 Pt. Name: VERO SADLER/Sex: 1950 Female Med Rec #: [id number] Physician: ROSETTA MENDEZ MD Financial #: [id number] Pt. Type: A Room/Bed: [place] [address] Admit/Disch: 07/13/24 07:02:16 - 07/13/24 11:00:00 Institution: [...] By: Patricia Garvin RN 07/13/24 15:25 Normal [facility] Main OR Preoperative Recordo n 07-13-2024 Main OR Preoperative Record Main OR Preoperative Record PreOp Document Type FT Summary Primary Physician: ROSETTA MENDEZ MD Finalized Date/Time: 07/13/24 09:04:45 Pt. Name: VREO SADLER /Sex: 1950 Female Med Rec #: [id number] Physician: ROSETTA MENDEZ MD Financial #: [id number] Pt. Type: A Room/Bed: [facility]10/13 Admit/Disch: 07/13/24 07:02:16 - Institution: Case Times [...] By: Andrew Holly Ii 07/13/24 09:04 Normal [facility] Operative Reporton Operative Report Operative Report Patient: VERO SADLER Age: 74 years Sex: Female : 1950 Associated Diagnoses: None Author: ROSETTA MENDEZ MD Procedure SURGEON: Rosetta Mendez MD PREOPERATIVE DIAGNOSIS: Stress urinary incontinence with , intrinsic sphincter deficiency POSTOPERATIVE DIAGNOSIS: Same PROCEDURE: Cystoscopy, injection of urethral bulking agent CPT 65999 FINDINGS: Urethra injected at 4 units packed [...] WEEKS. Needs to void before dc Normal [facility] Comment on above: Result Comment: Elec tronically Signed By: BRYAN BELTRÁN, ROSETTA\.shyam\Date and Time Signed: 07/13/24 10:17 EDT BMPon 06-26-2024 Anion gap [Moles/Vol] 11 mmol/L Normal 6-16 [facility] Comment on above: Performed By: #### 2 [id number] #### [facility] [address] [place] [address] Calcium [Mass/Vol] 9.1 mg/dL Normal 8.9-11.1 [facility] Comment on above: Performed By: #### 2 [id number] #### [facility] [address] [place] [address] Chloride [Moles/Vol] 107 mmol/L Normal 101-111 [facility] Comment on above: Performed By: #### 2 [id number] #### [facility] [address] [place] [address] CO2 [Moles/Vol] 26 mmol/L Normal 21-31 [facility] Comment on above: Performed By: #### 2 [id number] #### [facility] [address] [place] [address] Creatinine [Mass/Vol] 1.6 mg/dL High 0.5-1.3 [facility] Comment on above: Performed By: #### 2 [id number] #### [facility] [address] [place] [address] Glucose [Mass/Vol] 91 mg/dL Normal 55-199 [facility] Comment on above: Performed By: #### 2 [id number] #### [facility] [address] [place] [address] Potassium [Moles/Vol] 4.7 mmol/L Normal 3.5-5.3 [facility] Comment on above: Performed By: #### 2 [id number] #### [facility] [address] [place] [address] Sodium [Moles/Vol] 139 mmol/L Normal 135-145 [facility] Comment on above: Performed By: #### 2 [id number] #### [facility] [address] [place] [address] Urea nitrogen [Mass/Vol] 24 mg/dL High 5-21 [facility] Comment on above: Performed By: #### 2 [id number] #### [facility] [address] [place] [address] Urea nitrogen/Creatinine [Mass ratio] 15 No Units Normal 10-20 [facility] Comment on above: Performed By: #### 2 [id number] #### [facility] [address] [place] [address] CBC w/ Auto Diffon 5 Basophils/100 WBC (Bld) 1.2 % Normal 0.0-2.0 [facility] Comment on above: Performed By: #### 2 777659 #### [facility] [address] [place] [address] Basophils/Leukocytes Auto (Bld) [Pure # fraction] 0.1 E9/L Normal 0.0-0.2 [facility] Comment on above: Performed By: #### 2 [id number] #### [facility] [address] [place] [address] Eosinophils (Bld) [#/Vol] 0.1 E9/L Normal 0.0-0.5 [facility] Comment on above: Performed By: #### 2 [id number] #### [facility] [address] [place] [address] Eosinophils/100 WBC (Bld) 1.6 % Normal 0.0-8.0 [facility] Comment on above: Performed By: #### 2 [id number] #### [facility] [address] [place] [address] Erythrocyte distribution width (RBC) [Ratio] 14.6 % High 10.9-14.2 [facility] Comment on above: Performed By: #### 2 240722 #### [facility] [address] [place] [address] Hematocrit (Bld) [Volume fraction] 34.0 % Normal 34.0-46.0 [facility] Comment on above: Performed By: #### 2 [id number] #### [facility] [address] [place] [address] Hemoglobin (Bld) [Mass/Vol] 11.2 g/dL Low 12.0-16.0 [facility] Comment on above: Performed By: #### 2 [id number] #### [facility] [address] [place] [address] Lymphocytes (Bld) [#/Vol] 1.2 E9/L Normal 1.0-4.0 [facility] Comment on above: Performed By: #### 2 399666 #### [facility] [address] [place] [address] Lymphocytes/100 WBC (Bld) 15.1 % Normal 14.0-50.0 [facility] Comment on above: Performed By: #### 2 [id number] #### [facility] [address] [place] [address] MCH (RBC) [Entitic mass] 29.3 pg Normal 27.0-34.0 [facility] Comment on above: Performed By: #### 2 [id number] #### [facility] [address] [place] [address] MCHC (RBC) [Mass/Vol] 32.9 g/dL Normal 31.4-36.0 [facility] Comment on above: Performed By: #### 2 [id number] #### [facility] [address] [place] [address] MCV (RBC) [Entitic vol] 89.0 fL Normal 80.0-100.0 [facility] Comment on above: Performed By: #### 2 [id number] #### [facility] [address] [place] [address] Monocytes (Bld) [#/Vol] 0.9 E9/L Normal 0.2-1.0 [facility] Comment on above: Performed By: #### 2 [id number] #### [facility] [address] [place] [address] Neutrophils (Bld) [#/Vol] 5.3 E9/L Normal 2.0-7.5 [facility] Comment on above: Performed By: #### 2 963507 #### [facility] [address] [place] [address] Neutrophils/100 WBC (Bld) 69.9 % Normal 36.0-75.0 [facility] Comment on above: Performed By: #### 2 972210 #### [facility] [address] [place] [address] Platelet 241.0 E9/L Normal 150.0-500.0 [facility] Comment on above: Performed By: #### 2 680678 #### [facility] [address] [place] [address] Platelet mean volume (Bld) [Entitic vol] 7.6 fL Normal 6.4-10.8 [facility] Comment on above: Performed By: #### 2 442190 #### [facility] [address] [place] [address] RBC (Bld) [#/Vol] 3.8 E12/L Low 4.3-5.9 [facility] Comment on above: Performed By: #### 2 547267 #### [facility] [address] [place] [address] WBC corrected for nucl RBC Auto (Bld) [#/Vol] 7.6 E9/L Normal 4.0-11.0 [facility] Comment on above: Performed By: #### 2 [id number] #### [facility] [address] [place] [address] [facility] APTTon 06-26-2024 aPTT Coag (Bld) [Time] 29.3 s NO [facility] CHEMISTRYOrdered By: SYSTEM SYSTEM on 06-26-2024 Anion [...] 34.6 s Normal 25.1 - 36.5 second(s) [facility] Auto Coag Comment on above: Interpretive Data: P arameter 15 days - 4 weeks 1 - [...] the same coagulation reagent and instrumentation as [facility]. Currently there are no coagulation studies available worldwide for children to 14 days, and no normal ranges. Heparin therapeutic range (represented by Anti-Factor Xa activity of 0.2 - 0.4 U/mL) corresponds to PTT of 56.6 - 109.0 sec. INR Coag (PPP) [Relative time] 1.16 {INR} Invalid Interpretation Code [facility] Auto Coag Comment on above: Interpretive Data: I NR results are specifically intended to assess patients stabilized on long-term Anticoagulation therapy suggested INR s Less Intensive Anticoagulation 2.0 3.0 Conventional Range 3.0 4.5 PT Coag (PPP) [Time] 13.0 s High 9.4 - 1 2.5 second(s) [facility] Auto Coag Comment on above: Interpretive Data: [...] the same coagulation reagent and instrumentation as [facility]. Currently there are no coagulation studies available [...] E9/L Remisol Heme No Panel Informationon 06-26 [facility] PT & PTTon 06-26-2024 aPTT Coag (PPP) [Time] 34.6 second(s) Normal 25.1-36.5 [facility] Comment on above: Result Comment: Para [...] the same coagulation reagent and instrumentation as [facility]. Currently there are no coagulation studies available worldwide for children to 14 days, and no normal ranges. Heparin therapeutic range (represented by Anti-Factor Xa activity of 0.2 - 0.4 U/mL) corresponds to PTT of 56.6 - 109.0 sec. Performed By: #### 1 [id number] #### [facility] [address] [place] [address] INR Coag (PPP) [Relative time] 1.16 {INR} Invalid Interpretation Code [facility] Comment on above: Result Comment: INR results are specifically intended to assess patients stabilized on long-term Anticoagulation therapy suggested INR???s ???Less Intensive Anticoagulation??? 2.0 ??? 3.0 Conventional Range 3.0 ??? 4.5 Performed By: #### 1 [id number] #### [facility] [address] [place] [address] PT Coag (PPP) [Time] 13.0 second(s) High 9.4-12.5 [facility] Comment on above: Result Comment: 15 [...] the same coagulation reagent and instrumentation as [facility]. Currently there are no coagulation studies available worldwide for children to 14 days, and no normal ranges. Performed By: #### 1 [id number] #### [facility] [address] [place] [address] [facility]O COUMon 06-26-2024 PT Coag (PPP) [Time] 11.4 s [facility] INR 1.08 [facility] Comment on above: DESIRED INR: 2.0-3.0 CONDITIONS NOT LISTED BELOW 2.5-3.5 FOR PROSTHETIC HEART VALVE REPLACEMENT 2.5-3.5 RECURRENT THROMBOSIS UA with Cult Rflxon 06-27-19 25 Bilirubin Ql (U) Negative Normal Negative [facility] Comment on above: Performed By: #### 4 [id number] #### [facility] [address] [place] [address] Clarity (U) Clear Normal Clear [facility] Comment on above: Performed By: #### 4 [id number] #### [facility] [address] [place] [address] Color (U) Yellow Normal Yellow [facility] Comment on above: Result Comment: Micr oscopic readings are only performed on those samples that meet specific criteria set forth by [facility]. Performed By: #### 4 [id number] #### [facility] [address] [place] [address] Glucose Ql (U) Negative Normal Negative [facility] Comment on above: Performed By: #### 4 [id number] #### [facility] [address] [place] [address] Hemoglobin Auto test strip (U) [Mass/Vol] Negative Normal Negative [facility] Comment on above: Performed By: #### 4 [id number] #### [facility] [address] [place] [address] Ketones Auto test strip Ql (U) Negative Normal Negative [facility] Comment on above: Performed By: #### 4 [id number] #### [facility] [address] [place] [address] Leukocyte esterase Auto test strip Ql (U) Negative Normal Negative [facility] Comment on above: Performed By: #### 4 [id number] #### [facility] [address] [place] [address] Nitrite Auto test strip Ql (U) Negative Normal Negative [facility] Comment on above: Performed By: #### 4 [id number] #### [facility] [address] [place] [address] pH (U) 5.0 [pH] Invalid Interpretation Code 5.0-9.0 [facility] Comment on above: Performed By: #### 4 [id number] #### [facility] [address] [place] [address] Protein Ql (U) Trace Abnormal Negative [facility] Comment on above: Performed By: #### 4 [id number] #### [facility] [address] [place] [address] Specific gravity (U) [Rel density] 1.016 Invalid Interpretation Code 1.005-1.030 [facility] Comment on above: Performed By: #### 4 [id number] #### [facility] [address] [place] [address] Urobilinogen (U) [Mass/Vol] Negative Normal Negative [facility] Comment on above: Performed By: #### 4 [id number] #### [facility] [address] [place] [address] Type of Urine collection method Clean Catch Normal [facility] Comment on above: Performed By: #### 4 [id number] #### [facility] [address] [place] [address] URINALYSISOrdered By: SYSTEM SYSTEM on 06-26-2024 Bilirubin Ql (U) Negative Normal Negativemg/ dL FT UA Auto SS Clarity (U) Clear (06/26/24 1:56 PM) Normal Clear [facility] UA Auto SS Color (U) Yellow 1 (06/26/24 1:56 PM) Normal Yellow [facility] UA Auto SS Comment on above: Interpretive Data: M icroscopic readings are only performed on those samples that meet specific criteria set forth by [facility]. Glucose Ql (U) Negative Normal Negativemg/ dL [facility] UA Auto SS Hemoglobin Auto test strip (U) [Mass/Vol] Negative Normal Negativemg/ dL FT UA Auto SS Ketones Auto test strip Ql (U) Negative Normal Negativemg/ dL FT UA Auto SS Leukocyte esterase Auto test strip Ql (U) Negative Normal NegativeLeu /uL FT UA Auto SS Nitrite Auto test strip Ql (U) Negative Normal Negativemg/ dL [facility] UA Auto SS pH (U) 5.0 *NA* (06/26/24 1:56 PM) Invalid Interpretation Code 5.0 - 9.0 FT UA Auto SS Protein Ql (U) Trace mg/dL Invalid Interpretation Code Negativemg/ dL [facility] UA Auto SS Specific gravity (U) [Rel density] 1.016 *NA* (06/26/24 1:56 PM) Invalid Interpretation Code 1.005 - 1.030 [facility] UA Auto SS Urobilinogen (U) [Mass/Vol] Negative Normal Negativemg/ dL [facility] UA Auto SS URINALYSISOrdered By: Grover Roberts on 06-26-2024 UA Spec Desc Clean Catch (06/26/24 1:56 PM) Normal [facility] UA Auto SS eGFRon 06-26-2024 eGFR 34 mL/min/1.73 m2 Low >=59 [facility] Comment on above: Performed By: #### 1 [id number] ####[facility] [address] [place] [address] Albumin [Mass/volume] in Ser um or Plasmaon 06-20-2024 Albumin [Mass/Vol] Albumin [Mass/volume ] in Serum or Plasma 2.9-4.4 [facility] IgA [Mass/volume] in Serum o r Plasmaon 06-20-2024 IgA [Mass/Vol] IgA [Mass/volume] in Serum or Plasma 64-422 [facility] IgG [Mass/volume] in Serum o r Plasmaon 06-20-2024 IgG [Mass/Vol] IgG [Mass/volume] in Serum or Plasma 586-1602 [facility] IgM [Mass/volume] in Serum o r Plasmaon 06-20-2024 IgM [Mass/Vol] IgM [Mass/volume] in Serum or Plasma 26-217 [facility] Immunofixation for Urineon 0 06-20-2024 Interpretation Immunofixation (U) [Interp] Immunofixation for Urine . [facility] Comment on above: No monoclonality det ected.Performed at: [facility] [address] [id number] Director: Jozef Medina PhD, Phone: [phone] Immunoglobulin light chains. kappa.free [Mass/volume] in Serumon 06-20-2024 Immunoglobulin light chains.kappa.free (S) [Mass/Vol] Immunoglobulin light chains.kappa.free [Mass/volume] in Serum Abnormal 3.3-19.4 [facility] Immunoglobulin light chains. kappa.free/Immunoglobulin light chains.lambda.free [Alexandra 06-20-2024 Immunoglobulin light chains.kappa.free/Immun oglobulin light chains.lambda.free (S) [Mass ratio] Immunoglobulin light chains.kappa.free/Immun oglobulin light chains.lambda.free [Mass Abnormal 0.26-1.65 [facility] Comment on above: Performed at: [facility] [address] [id number] Director: Jozef Medina PhD, Phone: [phone] Immunoglobulin light chains. lambda.free [Mass/volume] in Serum or Plasmaon 06-20-2024 Immunoglobulin light chains.lambda.free [Mass/Vol] Immunoglobulin light chains.lambda.free [Mass/volume] in Serum or Plasma Abnormal 5.7-26.3 [facility] Iron binding capacity [Mass/ volume] in Serum or Plasmaon 06-20-2024 Iron binding capacity [Mass/Vol] Iron binding capacity [Mass/volume] in Serum or Plasma Low 250.0-450.0 [facility] Iron saturation [Mass Fracti on] in Serum or Plasmaon 06-20-2024 Iron saturation [Mass fraction] Iron saturation [Mass Fraction] in Serum or Plasma [facility] Laboratory - Chemistry and C hemistry - challengeon 06-20-2024 Ferritin [Mass/Vol] 147.0 ng/mL 8.0-252.0 [facility] Iron [Mass/Vol] 51.0 ug/dL 50.0-170.0 [facility] Magnesium [Mass/Vol] 1.6 mg/dL Low 1.8-2.4 [facility] Urate [Mass/Vol] 8.0 mg/dL High 2.6-6.0 [facility] - Urinalysison Protein (U) [Mass/Vol] 30.4 mg/dL High <=11.9 [facility] No Panel Informationon 06-20 25-Hydroxy Vitamin D Total 37.9 ng/mL [facility] Comment on above: <20 ng/mL Vit D defi cient20-<30 ng/mL Vit D ijqcaeklddxf26-605 ng/mL Vit D sufficient>100 ng/mL Potential Toxicity Parathyroid Hormone (Intact) 43 pg/mL 15-65 [facility] Comment on above: Performed at: [facility] [employer] [address] [id number] Director: Jozef Medina PhD, Phone: [phone] Phosphorus Level 3.7 mg/dL 2.6-4.7 [place] [facility] Electrophoresis M-Benjy Comment: g/dL Not Observed [facility] Comment on above: SPE shows an asymmet rical gamma. Protein Electrophoresis Note Comment . [facility] Comment on above: Protein electrophore sis scan will follow via computer,mail, or brick handler delivery. Urine Random Creatinine 127.97 mg/dL 20.0 0-300.0 0 [facility] Protein [Mass/volume] in Ser um or Plasmaon 06-20-2024 Protein [Mass/Vol] Protein [Mass/volume ] in Serum or Plasma 6.0-8.5 [facility] Serum globulin measurement ( mass/volume)on 06-20-2024 Globulin (S) [Mass/Vol] Serum globulin measurement (mass/volume) 2.2-3.9 [facility] Serum or plasma albumin/glob ulin mass ratioon 06-20-2024 Albumin/Globulin [Mass ratio] Serum or plasma albumin/globulin mass ratio 0.7-1.7 [facility] Serum or plasma alpha 1 glob ulin measurement by electrophoresis (mass/volume)on 06-20-2024 Alpha 1 globulin Elph [Mass/Vol] Serum or plasma alpha 1 globulin measurement by electrophoresis (mass/volume) 0.0-0.4 [facility] Serum or plasma alpha 2 glob ulin measurement by electrophoresis (mass/volume)on 06-20-2024 Alpha 2 globulin Elph [Mass/Vol] Serum or plasma alpha 2 globulin measurement by electrophoresis (mass/volume) 0.4-1.0 [facility] Serum or plasma beta globuli n measurement by electrophoresis (mass/volume)on 06-20-2024 Beta globulin Elph [Mass/Vol] Serum or plasma beta globulin measurement by electrophoresis (mass/volume) 0.7-1.3 [facility] Serum or plasma gamma globul in measurement by electrophoresis (mass/volume)on 06-20-2024 Gamma globulin Elph [Mass/Vol] Serum or plasma gamma globulin measurement by electrophoresis (mass/volume) 0.4-1.8 [facility] Serum or plasma immunoelectr ophoresis interpretationon 06-20-2024 Interpretation IEP [Interp] Serum or plasma immunoelectrophoresis interpretation . [facility] Comment on above: Presence of monoclon al protein is unclear at this time. Suggestrepeat in 3 to 6 months if clinically indicated. Urine protein/creatinine rat ioon 06-20-2024 Protein/Creatinine (U) [Ratio] Urine protein/creatinine ratio [facility] Urology Office/Clinic Noteon 05-19-2024 Urology Office/Clinic Note [...] for UCC. 4. Aspirin long-term use (Z79.82: intermediate (current) use of aspirin) ASA. No BTs. Has pacemaker. Hx of UT but was asx, not sure when it happened. [3] Objective demonstration of stress urinary incontinence today on exam. We discussed with her that she would benefit from cystoscopy, Bulkamid injection. She will follow-up for the procedure. Follow-up With When Contact Information ROSETTA MENDEZ MD, URL Additional Instructions: schedule Bulkamid Patient Education Kegel Kathryn I, Elvi Posadas, personally scribed for Dr. Rosetta Mendez on 05/19/2024 09:01:12. . Portions of this record may have been created with voice recognition artificial intelligence software, specifically [employer], Need and or [employer]. Substitutions may have occurred due to the [...] hypertension Spina (more content not included)... Normal [facility] Comment on above: Result Comment: Elec tronically Signed By: ROSETTA MENDEZ MD\.br\Date and Time Signed: 05/19/24 09:40 EST\.br\Electronically Co-Signed By: Elvi Posadas\.br\Date and Time Co-Signed: 05/19/24 09:01 EST Office Visiton 05-09-2024 Follow-up visit [id number] Brian Sadler se 1950 F Date Provider Department Center 05/09/2024 Halina-JOSEY KWOK [facility] Family History Problem Relation Age of Onset Other Mother Coronary artery disease Mother Other Mother Other Mother Other Father Hypertension Father Hyperlipidemia Father Other Daughter Family Status - Relation Status Age at Mother Father Daughter Level of Service:63746 CT OFFICE/OUTPATIENT ESTABLISHED LOW MDM 20 MIN Normal [facility] XR Sinuses [address] [address] XRay Report Signed Patient: VERO SADLER MR#: [id number] : 1950 Acct:[id number] Age/Sex: 74 / F ADM Date: 05/09/24 Loc: RAD Attending Dr: John Mathews M.D. Ordering Physician: John Mathews M.D. Date of Service: 05/09/24 Procedure(s): XR sinus min 3V Accession Number(s): [id number] cc: Debbie Bhatia M.D.; John Mathews M.D. [address] [address] Patient Name: VERO SADLER MRN: [id number] date: 1950 Sex: F Assigned Patient Location: [facility] Current Patient Location: RAD Accession/Order Number: [id number] Exam Date: 05/09/2024 12:47 Report Date: 05/09/2024 [...] Kelly Lao M.D.05/09/2024 12:54 PM Dictation Location: [place] [address] Electronically authenticated by: [id number] Y Date: 05/09/2024 12:54 Dictated By: Kelly Lao M.D. Signed By: 05/09/24 1257 DD/ 1254 TD/TT: Property Claims Adjuster: [facility] Radiology, Radiologtito montemayor MD - 05/09/2024 [address] [place] [id number] XRay Report Signed Patient: VERO SADLER MR#: [id number] : 1950 Acct:[id number] Age/Sex: 74 / F ADM Date: 05/09/24 Loc: RAD Attending Dr: John Mathews M.D. Ordering Physician: John Mathews M.D. Date of Service: 05/09/24 Procedure(s): XR sinus min 3V Accession Number(s): [id number] cc: Debbie Bhatia M.D.; John Mathews M.D. [address] [place] [address] Patient Name: VERO SADLER MRN: [facility]:[id number] date: 1950 Sex: F Assigned Patient Location: [facility] Current Patient Location: [facility] Accession/Order Number: [id number] Exam Date: 05/09/2024 12:47 Report Date: 05/09/2024 [...] Kelly Lao M.D.05/09/2024 12:54 PM Dictation Location: [place] [address] Electronically authenticated by: [id number] Y Date: 05/09/2024 12:54 Dictated By: Kelly Lao M.D. Signed By: 05/09/24 1257 DD/ 1254 TD/TT: Property Claims Adjuster: [facility] RegisterPatient Radiology Study observation (narrative) [facility] RegisterPatient XR Sinuses 3 ViewsOrdered By : Radiologist Radiology on 05-09-2024 [facility] RegisterPatient Work Phone: Ambulatory Visit Summaryon 0 03-31-2024 [...] a (more content not included)... Normal [facility] Urology Office/Clinic Noteon 03-31-2024 Urology Office/Clinic [...] gross hematuria. 4. Aspirin long-term use (Z79.82: intermediate (current) use of aspirin) ASA. No BTs. Has pacemaker. Hx of UT but was asx, not sure when it [...] as such. Follow-up With When Contact Information ROSETTA MENDEZ MD, SASKIA Additional Instructions: schedule cysto with pelvic exam to assess for JOSE ANTONIO Patient Education Cystoscopy Injection Treatments for Urinary Incontinence Jericho Peralta I, Elvi Posadas, personally scribed for Dr. Rosetta Mendez on 03/31/2024 15:10:07. . Portions of this record may have been created with voice recognition artificial intelligence software, specifically [employer], Need and or [employer]. Substitutions may have occurred due to the [...] due t (more content not included)... Normal [facility] Comment on above: Result Comment: Elec tronically Signed By: ROSETTA MENDEZ MD\.br\Date and Time Signed: 03/31/24 15:13 EST\.br\Electronically Co-Signed By: Elvi Posadas P\.br\Date and Time Co-Signed: 03/31/24 15:10 EST\.br\Electronically Co-Signed By: Elvi Posadas\.br\Date and Time Co-Signed: 03/31/24 15:10 EST Office Visiton 01-26-2024 Follow-up visit [id number] Brian Sadler se 1950 F Date Provider Department Center 01/26/2024 Jj-TATO SALCIDO CARD [facility] Family History Problem Relation Age of Onset Other Mother Coronary artery disease Mother Other Mother Other Mother Other Father Hypertension Father Hyperlipidemia Father Other Daughter Family Status - Relation Status Age at Mother Father Daughter Level of Service:50634 CT OFFICE/OUTPATIENT ESTABLISHED LOW MDM 20 MIN Normal [facility] MR LUMBAR SPINE WO CONTRASTo n [...] narrowing. Electronically signed: Arnol Cutler MD. Normal [facility] Comment on above: Order Comment: ORDER IN EPIC NURSNOTEon 11-23-2023 NURSNOTE Ced from [employer] prepped pacemaker. Patient verbalizes no issues with device. Monitor hooked up for continuous patient monitoring throughout the scan. Normal [facility] CBC AUTO DIFFon 07-17-2022 BASO # 0.0 103/ul Normal 0.0-0.[address] [facility] Comment on above: Performed By: #### C BC #### [facility] [address] [place] [address] Dr. Eusebia Moralez Basophils/100 WBC (Bld) 0.6 % Normal 0.2-2.0 [facility] Comment on above: Performed By: #### C BC #### [facility] [address] [place] [address] Dr. Eusebia Moralez EO # 0.2 103/ul Normal 0.0-0.[address] [facility] Comment on above: Performed By: #### C BC #### [facility] [address] [place] [address] Dr. Eusebia Moralez Eosinophils/100 WBC (Bld) 2.2 % Normal 0.9-7.[address] [facility] Comment on above: Performed By: #### C BC #### [facility] [address] [place] [address] Dr. Eusebia Moralez Erythrocyte distribution width (RBC) [Ratio] 13.0 % Normal 11.0-15.[address] [facility] Comment on above: Performed By: #### C BC #### [facility] [address] [place] [address] Dr. Eusebia Moralez Hematocrit (Bld) [Volume fraction] 40.5 % Normal 36.0-48.[address] [facility] Comment on above: Performed By: #### C BC #### [facility] [address] [place] [address] [address] Eusebia Moralez Hemoglobin (Bld) [Mass/Vol] 12.7 g/dL Normal 12.0-16.[address] [facility] Comment on above: Performed By: #### C BC #### [facility] [address] [place] [address] [address] Eusebia Moralez IG # 0.02 10e3/ul Normal 0.00-0.[address] [facility] Comment on above: Performed By: #### C BC #### [facility] [address] [place] [address] Dr. Eusebia Moralez IG % 0.3 % Normal 0.0-0.[address] [facility] Comment on above: Performed By: #### C BC #### [facility] [address] [place] [address] Dr. Eusebia Moralez LYMPH # 1.4 103/ul Normal 1.2-3.[address] [facility] Comment on above: Performed By: #### C BC #### [facility] [address] [place] [address] Dr. Eusebia Moralez Lymphocytes/100 WBC (Bld) 19.9 % Critically low 20.5-60.[address] [facility] Comment on above: Performed By: #### C BC #### [facility] [address] [place] [address] Dr. Eusebia Moralez MANUAL DIFF REQ NO Normal [facility] Comment on above: Performed By: #### C BC #### [facility] [address] [place] [address] Dr. Eusebia Moralez MCH (RBC) [Entitic mass] 29.1 pg Normal 26.7-34.[address] [facility] Comment on above: Performed By: #### C BC #### [facility] [address] [place] [address] Dr. Eusebia Moralez MCHC (RBC) [Mass/Vol] 31.4 g/dL Normal 29.9-35.[address] [facility] Comment on above: Performed By: #### C BC #### [facility] [address] [place] [address] [address] Eusebia Moralez MCV (RBC) [Entitic vol] 92.9 fL Normal 81.0-99.0 [facility] Comment on above: Performed By: #### C BC #### [facility] [address] [place] [address] Dr. Eusebia Moralez MONO # 0.7 103/ul Normal 0.3-0.[address] [facility] Comment on above: Performed By: #### C BC #### [facility] [address] [place] [address] Dr. uEsebia Moralez Monocytes/100 WBC (Bld) 9.4 % Normal 1.7-12.0 [facility] Comment on above: Performed By: #### C BC #### [facility] [address] [place] [address] Dr. Euesbia Moralez NEUT # 4.7 103/ul Normal 1.4-6.[address] [facility] Comment on above: Performed By: #### C BC #### [facility] [address] [place] [address] Dr. Eusebia Moralez Neutrophils/100 WBC (Bld) 67.6 % Normal 43.0-75.[address] [facility] Comment on above: Performed By: #### C BC #### [facility] [address] [place] [address] Dr. Eusebia Moralez Platelet mean volume (Bld) [Entitic vol] 9.9 fL Normal 9.5-13.[address] [facility] Comment on above: Performed By: #### C BC #### [facility] [address] [place] [address] Dr. Eusebia Moralez PLT 218 103/ul Normal 150-450 [facility] Comment on above: Performed By: #### C BC #### [facility] [address] [place] [address] Dr. Eusebia Moralez RBC 4.36 106/ul Normal 4.20-5.[address] [facility] Comment on above: Performed By: #### C BC #### [facility] [address] [place] [address] [address] Eusebia Moralez WBC 6.9 103/ul Normal 4.0-11.[address] [facility] Comment on above: Performed By: #### C BC #### [facility] [address] [place] [address] Dr. Eusebia Moralez PROF CHEM 8 (BAS METB)on Anion gap [Moles/Vol] 9.0 mmol/L Normal [facility] Comment on above: Performed By: #### B MP #### [facility] [address] [place] [address] [address] Eusebia Moralez Calcium [Mass/Vol] 9.2 mg/dL Normal 8.5-10.1 [facility] Comment on above: Performed By: #### B MP #### [facility] [address] [place] [address] Dr. Eusebia Moralez Chloride [Moles/Vol] 103 mmol/L Normal 98-[address] [facility] Comment on above: Performed By: #### B MP #### [facility] [address] [place] [address] Dr. Eusebia Moralez CO2 [Moles/Vol] 32.9 mmol/L Critically high 21.0-32.[address] [facility] Comment on above: Performed By: #### B MP #### [facility] [address] [place] [address] Dr. Eusebia Moralez Creatinine [Mass/Vol] 1.74 mg/dL Critically high 0.55-1.[address] [facility] Comment on above: Performed By: #### B MP #### [facility] [address] [place] [address] Dr. Eusebia Moralez EGFR-AF AFGHAN 35 mL/min/1.73m2 Critically low >=60 [facility] Comment on above: Performed By: #### B MP #### [facility] [address] [place] [address] Dr. Eusebia Moralez EGFR-NON AF AFGHAN 29 mL/min/1.73m2 Critically low >=60 [facility] Comment on above: Performed By: #### B MP #### [facility] [address] [place] [address] [address] Eusebia Moralez Glucose [Mass/Vol] 101 mg/dL Normal 74-106 [facility] Comment on above: Performed By: #### B MP #### [facility] [address] [place] [address] [address] Eusebia Moralez Potassium [Moles/Vol] 3.9 mmol/L Normal 3.5-5.[address] [facility] Comment on above: Performed By: #### B MP #### [facility] [address] [place] [address] [address] Eusebia Moralez Sodium [Moles/Vol] 141 mmol/L Normal 136-145 [facility] Comment on above: Performed By: #### B MP #### [facility] [address] [place] [address] [address] Eusebia Moralez Urea nitrogen [Mass/Vol] 34.0 mg/dL Critically high 7.0-18.[address] [facility] Comment on above: Performed By: #### B MP #### [facility] [address] [place] [address] [address] Eusebia Moralez Urea nitrogen/Creatinine [Mass ratio] 19.5 mg/mg Normal [facility] Comment on above: Performed By: #### B MP #### [facility] [address] [place] [address] [address] Eusebia Moralez CBC AUTO DIFFon 07-02-2022 BASO # 0.1 103/ul Normal 0.0-0.[address] [facility] Comment on above: Performed By: #### C BC ####[facility] [address] [place] [id number] Moralez Basophils/100 WBC (Bld) 0.7 % Normal 0.2-2.0 [facility] Comment on above: Performed By: #### C BC ####[facility] [address] [place] [id number] Moralez EO # 0.1 103/ul Normal 0.0-0.[address] [facility] Comment on above: Performed By: #### C BC ####[facility] [address] [place] [address]Dr. Eusebia Moralez Eosinophils/100 WBC (Bld) 1.8 % Normal 0.9-7.0 [facility] Comment on above: Performed By: #### C BC ####[facility] [address] [place] [address]Dr. Eusebia Moralez Erythrocyte distribution width (RBC) [Ratio] 13.1 % Normal 11.0-15.0 [facility] Comment on above: Performed By: #### C BC ####[facility] [address] [place] [address]Dr. Eusebia Moralez Hematocrit (Bld) [Volume fraction] 40.2 % Normal 36.0-48.0 [facility] Comment on above: Performed By: #### C BC ####[facility] [address] [place], [place] [address]Dr. Eusebia Moralez Hemoglobin (Bld) [Mass/Vol] 12.5 g/dL Normal 12.0-16.0 [facility] Comment on above: Performed By: #### C BC ####[facility] [address] [place], [place] [address]Dr. Eusebia Moralez IG # 0.01 10e3/ul Normal 0.00-0.03 [facility] Comment on above: Performed By: #### C BC ####[facility] [address] [place], [place] [address]Dr. Eusebia Moralez IG % 0.1 % Normal 0.0-0.5 [facility] Comment on above: Performed By: #### C BC ####[facility] [address] [place], [place] [address]Dr. Eusebia Moralez LYMPH # 1.5 103/ul Normal 1.2-3.8 [facility] Comment on above: Performed By: #### C BC ####[facility] [address] [place], [place] [address]Dr. Eusebia Moralez Lymphocytes/100 WBC (Bld) 22.6 % Normal 20.5-60.0 [facility] Comment on above: Performed By: #### C BC ####[facility] [address] [place] [address]Dr. Eusebia Moralez MANUAL DIFF REQ NO Normal [facility] Comment on above: Performed By: #### C BC ####[facility] [address] [place] [id number]. Eusebia Moralez MCH (RBC) [Entitic mass] 29.3 pg Normal 26.7-34.[address] [facility] Comment on above: Performed By: #### C BC ####[facility] [address] [place], [place] [address]Dr. Eusebia Moralez MCHC (RBC) [Mass/Vol] 31.1 g/dL Normal 29.9-35.[address] [facility] Comment on above: Performed By: #### C BC ####[facility] [address] [place], [place] [address]Dr. Eusebia Moralez MCV (RBC) [Entitic vol] 94.4 fL Normal 81.0-99.0 [facility] Comment on above: Performed By: #### C BC ####[facility] [address] [place], [place] [address]Dr. Eusebia Moralez MONO # 0.6 103/ul Normal 0.3-0.[address] [facility] Comment on above: Performed By: #### C BC ####[facility] [address] [place], [place] [address]Dr. Eusebia Kirt Monocytes/100 WBC (Bld) 9.1 % Normal 1.7-12.0 [facility] Comment on above: Performed By: #### C BC ####[facility] [address] [place], [place] [address]Dr. Eusebia Moralez NEUT # 4.4 103/ul Normal 1.4-6.[address] [facility] Comment on above: Performed By: #### C BC ####[facility] [address] [place], [place] [address]Dr. Eusebia Moralez Neutrophils/100 WBC (Bld) 65.7 % Normal 43.0-75.[address] [facility] Comment on above: Performed By: #### C BC ####[facility] [address] [place] [id number]. Eusebia Moralez Platelet mean volume (Bld) [Entitic vol] 9.6 fL Normal 9.5-13.[address] [facility] Comment on above: Performed By: #### C BC ####[facility] [address] [place] [id number]. Eusebia Moralez PLT 204 103/ul Normal 150-[address] [facility] Comment on above: Performed By: #### C BC ####[facility] [address] [place] [address]Dr. Eusebia Moralez RBC 4.26 106/ul Normal 4.20-5.[address] [facility] Comment on above: Performed By: #### C BC ####[facility] [address] [place] [address]Dr. Eusebia Moralez WBC 6.7 103/ul Normal 4.0-11.[address] [facility] Comment on above: Performed By: #### C BC ####[facility] [address] [place], [place] [address]Dr. Eusebia Moralez PROF CHEM 8 (BAS METB)on Anion gap [Moles/Vol] 11.2 mmol/L Normal [facility] Comment on above: Performed By: #### B MP ####[facility] [address] [place] [address]Dr. Eusebia Moralez Calcium [Mass/Vol] 9.2 mg/dL Normal 8.5-10.1 [facility] Comment on above: Performed By: #### B MP ####[facility] [address] [place] [address]Dr. Eusebia Moralez Chloride [Moles/Vol] 109 mmol/L Critically high 98-[address] [facility] Comment on above: Performed By: #### B MP ####[facility] [address] [place] [address]Dr. Eusebia Moralez CO2 [Moles/Vol] 27.6 mmol/L Normal 21.0-32.0 [facility] Comment on above: Performed By: #### B MP ####[facility] [address] [place] [id number]. Eusebia Moralez Creatinine [Mass/Vol] 1.49 mg/dL Critically high 0.55-1.[address] [facility] Comment on above: Performed By: #### B MP ####[facility] [address] [place] [id number]. Eusebia Moralez EGFR-AF AFGHAN 42 mL/min/1.73m2 Critically low >=60 [facility] Comment on above: Performed By: #### B MP ####[facility] [address] [place] [address]Dr. Eusebia Moralez EGFR-NON AF AFGHAN 34 mL/min/1.73m2 Critically low >=[address] [facility] Comment on above: Performed By: #### B MP ####[facility] [address] [place], [place] [address]Dr. Eusebia Moralez Glucose [Mass/Vol] 89 mg/dL Normal 74-106 [facility] Comment on above: Performed By: #### B MP ####[facility] [address] [place], [place] [address]Dr. Eusebia Moralez Potassium [Moles/Vol] 4.8 mmol/L Normal 3.5-5.1 [facility] Comment on above: Performed By: #### B MP ####[facility] [address] [place], [place] [address]Dr. Eusebia Moralez Sodium [Moles/Vol] 143 mmol/L Normal 136-145 [facility] Comment on above: Performed By: #### B MP ####[facility] [address] [place] [address]Dr. Eusebia Moralez Urea nitrogen [Mass/Vol] 27.0 mg/dL Critically high 7.0-18.[address] [facility] Comment on above: Performed By: #### B MP ####[facility] [address] [place] [address]Dr. Eusebia Moralez Urea nitrogen/Creatinine [Mass ratio] 18.1 mg/mg Normal [facility] Comment on above: Performed By: #### B MP ####[facility] [address] [place], [place] [address]OgDr. E[address]ebia Moralez CT LUNG CANCER SCREENINGon 1 [...] by: AMBAR MAYA Date: 2022-02-24 08:[address] [facility] PROF CHEM 8 (BAS METB)on Anion gap [Moles/Vol] 9.7 mmol/L Normal [facility] Comment on above: Performed By: #### B MP #### [facility] [address] [place], [place] [address] Dr. Eusebia Moralez Calcium [Mass/Vol] 8.8 mg/dL Normal 8.5-10.1 [facility] Comment on above: Performed By: #### B MP #### [facility] [address] [place], [place] [address] Dr. Eusebia Moralez Chloride [Moles/Vol] 107 mmol/L Normal 98-[address] [facility] Comment on above: Performed By: #### B MP #### [facility] [address] [place] [address] [address] Eusebia Moralez CO2 [Moles/Vol] 29.5 mmol/L Normal 21.0-32.0 [facility] Comment on above: Performed By: #### B MP #### [facility] [address] [address] [address] Eusebia Moralez Creatinine [Mass/Vol] 1.83 mg/dL Critically high 0.55-1.[address] [facility] Comment on above: Performed By: #### B MP #### [facility] [address] [address] [address] Eusebia Moralez EGFR-AF AFGHAN 33 mL/min/1.73m2 Critically low >=[address] [facility] Comment on above: Performed By: #### B MP #### [facility] [address] [address] [address] Eusebia Moralez EGFR-NON AF AFGHAN 27 mL/min/1.73m2 Critically low >=[address] [facility] Comment on above: Performed By: #### B MP #### [facility] [address] [address] [address] Eusebia Moralez Glucose [Mass/Vol] 87 mg/dL Normal 74-106 [facility] Comment on above: Performed By: #### B MP #### [facility] [address] [address] [address] Eusebia Moralez Potassium [Moles/Vol] 5.2 mmol/L Critically high 3.5-5.[address] [facility] Comment on above: Performed By: #### B MP #### [facility] [address] [address] [address] Eusebia Moralez Sodium [Moles/Vol] 141 mmol/L Normal 136-145 [facility] Comment on above: Performed By: #### B MP #### [facility] [address] [address] [address] Eusebia Moralez Urea nitrogen [Mass/Vol] 37.0 mg/dL Critically high 7.0-18.[address] [facility] Comment on above: Performed By: #### B MP #### [facility] [address] [place], [place] [address] Dr. Eusebia Moralez Urea nitrogen/Creatinine [Mass ratio] 20.2 mg/mg Normal [facility] Comment on above: Performed By: #### B MP #### [facility] [address] [place], [place] [address] Dr. Eusebia Moralez [place] STRESS/REST MULTIon 01-23 [place] STRESS/REST MULTI Patient: DARON SADLER Exam Date: 01/23/2022 : 1950 Gender:F Ordering : DR DEBBIE BHATIA . Admission #: [id number] Family : Order #: [id number] CLICK HERE TO VIEW EXAM RADIOLOGY REPORT [...] 01/26/2022 at 13:[address] [facility] ECHOCARDIO M/2D COMPLETEon 1 03-23-2021 ECHOCARDIO M/2D COMPLETE Patient: VERO SADLER Exam Date: 01/21/2022 : 1950 Gender:F Ordering : DR DEBBIE BHATIA . Admission #: [id number] Family : Order #: [id number] CLICK HERE TO VIEW EXAM ECHOCARDIOGRAM REPORT [...] Tato Salcido M.D. on 01/21/2022 at 09:17 [facility] XR DEXA BONE DENSITYon 01-21 XR [...] RAJI CANCHOLA Date: 2022-01-21 10:03 Normal [facility] BNPon 01-14-2022 Natriuretic peptide B (Bld) [Mass/Vol] 834.0 pg/mL Normal <=900.[address] [facility] Comment on above: Performed By: #### T SH, BNP, CMP, T7, LIPID ####[facility] [address] [place] [address]Dr. Eusebia Moralez CBC AUTO DIFFon 01-14-2022 BASO # 0.0 103/ul Normal 0.0-0.[address] [facility] Comment on above: Performed By: #### C BC #### [facility] [address] [place] [address] Dr. Eusebia Moralez Basophils/100 WBC (Bld) 0.4 % Normal 0.2-2.0 [facility] Comment on above: Performed By: #### C BC #### [facility] [address] [place] [address] Dr. Eusebia Moralez EO # 0.1 103/ul Normal 0.0-0.[address] [facility] Comment on above: Performed By: #### C BC #### [facility] [address] [place] [address] Dr. Eusebia Moralez Eosinophils/100 WBC (Bld) 1.1 % Normal 0.9-7.[address] [facility] Comment on above: Performed By: #### C BC #### [facility] [address] [place] [address] Dr. Eusebia Moralez Erythrocyte distribution width (RBC) [Ratio] 15.0 % Normal 11.0-15.[address] [facility] Comment on above: Performed By: #### C BC #### [facility] [address] [place] [address] Dr. Eusebia Moralez Hematocrit (Bld) [Volume fraction] 39.6 % Normal 36.0-48.[address] [facility] Comment on above: Performed By: #### C BC #### [facility] [address] [place] [address] Dr. Eusebia Moralez Hemoglobin (Bld) [Mass/Vol] 12.4 g/dL Normal 12.0-16.[address] [facility] Comment on above: Performed By: #### C BC #### [facility] [address] [place] [address] Dr. Eusebia Moralez IG # 0.02 10e3/ul Normal 0.00-0.[address] [facility] Comment on above: Performed By: #### C BC #### [facility] [address] [place] [address] Dr. Eusebia Moralez IG % 0.3 % Normal 0.0-0.[address] [facility] Comment on above: Performed By: #### C BC #### [facility] [address] [place] [address] Dr. Eusebia Moralez LYMPH # 1.3 103/ul Normal 1.2-3.[address] [facility] Comment on above: Performed By: #### C BC #### [facility] [address] [place] [address] Dr. Eusebia Moralez Lymphocytes/100 WBC (Bld) 17.9 % Critically low 20.5-60.[address] [facility] Comment on above: Performed By: #### C BC #### [facility] [address] [place] [address] Dr. Eusebia Moralez MANUAL DIFF REQ NO Normal [facility] Comment on above: Performed By: #### C BC #### [facility] [address] [place] [address] Dr. Eusebia Moralez MCH (RBC) [Entitic mass] 29.8 pg Normal 26.7-34.[address] [facility] Comment on above: Performed By: #### C BC #### [facility] [address] [place] [address] Dr. Eusebia Moralez MCHC (RBC) [Mass/Vol] 31.3 g/dL Normal 29.9-35.[address] [facility] Comment on above: Performed By: #### C BC #### [facility] [address] [place] [address] Dr. Eusebia Moralez MCV (RBC) [Entitic vol] 95.2 fL Normal 81.0-99.0 [facility] Comment on above: Performed By: #### C BC #### [facility] [address] [place] [address] [address] Eusebia Moralez MONO # 0.5 103/ul Normal 0.3-0.[address] [facility] Comment on above: Performed By: #### C BC #### [facility] [address] [place] [address] [address] Eusebia Moralez Monocytes/100 WBC (Bld) 7.0 % Normal 1.7-12.0 [facility] Comment on above: Performed By: #### C BC #### [facility] [address] [place] [address] [address] Eusebia Moralez NEUT # 5.2 103/ul Normal 1.4-6.[address] [facility] Comment on above: Performed By: #### C BC #### [facility] [address] [place] [address] Dr. Eusebia Moralez Neutrophils/100 WBC (Bld) 73.3 % Normal 43.0-75.[address] [facility] Comment on above: Performed By: #### C BC #### [facility] [address] [place] [address] Dr. Eusebia Moralez Platelet mean volume (Bld) [Entitic vol] 9.5 fL Normal 9.5-13.[address] [facility] Comment on above: Performed By: #### C BC #### [facility] [address] [place] [address] Dr. Eusebia Moralez PLT 188 103/ul Normal 150-450 [facility] Comment on above: Performed By: #### C BC #### [facility] [address] [place] [address] Dr. Eusebia Moralez RBC 4.16 106/ul Critically low 4.20-5.40 [facility] Comment on above: Performed By: #### C BC #### [facility] [address] [place] [address] [address] Eusebia Moralez WBC 7.0 103/ul Normal 4.0-11.[address] [facility] Comment on above: Performed By: #### C BC #### [facility] [address] [place] [address] [address] Eusebia Moralez FREE THYROXINE INDEX T7on FTI 2.45 Normal 1.30-4.[address] [facility] Comment on above: Performed By: #### T SH, BNP, CMP, T7, LIPID ####[facility] [address] [place] [id number] Moralez T3U 35.0 % Normal 30.0-39.[address] [facility] Comment on above: Performed By: #### T SH, BNP, CMP, T7, LIPID ####[facility] [address] [id number] Moralez T4 [Mass/Vol] 7.00 ug/dL Normal 4.80-13.90 [facility] Comment on above: Performed By: #### T SH, BNP, CMP, T7, LIPID ####[facility] [address] [place] [id number] Moralez IRONon 01-14-2022 Iron [Mass/Vol] 58.0 ug/dL Normal 50.0-170.0 [facility] Comment on above: Performed By: #### I MONIE #### [facility] [address] [place] [address] [address] Eusebia Moralez LIPID PROFILEon 01-14-2022 CHOL-HDL RATIO NORM SEE BELOW Normal [facility] Comment on above: Result Comment: 3.3 - 4.4 LOW RISK 4.4 - 7.1 AVERAGE RISK 7.1 - 11.0 MODERATE RISK >11.0 HIGH RISK Performed By: #### T SH, BNP, CMP, T7, LIPID ####[facility] [address] [id number] Moralez Cholesterol [Mass/Vol] 186 mg/dL Normal <=200 [facility] Comment on above: Performed By: #### T SH, BNP, CMP, T7, LIPID ####[facility] [address] [place] [id number] Moralez Cholesterol in HDL [Mass/Vol] 45 mg/dL Normal 40-[address] [facility] Comment on above: Performed By: #### T SH, BNP, CMP, T7, LIPID ####[facility] [address] [id number]. Eusebia Moralez Cholesterol in LDL [Mass/Vol] 118.4 mg/dL Normal [facility] Comment on above: Performed By: #### T SH, BNP, CMP, T7, LIPID ####[facility] [address] [place] [id number]. Eusebia Moralez Cholesterol.total/Latoya sterol in HDL [Mass ratio] 4.1 {ratio} Normal [facility] Comment on above: Performed By: #### T SH, BNP, CMP, T7, LIPID ####[facility] [address] [place] [address]Dr. Eusebia Moralez HDL NORMAL > or = 60 mg/dl - LO W CARDIOVASCULAR RISK <40 mg/dl - HIGH CARDIOVASCULAR RISK Normal [facility] Comment on above: Performed By: #### T SH, BNP, CMP, T7, LIPID ####[facility] [address] [place] [id number]. Eusebia Moralez LDL CALC NORMAL SEE BELOW Normal [facility] Comment on above: Result Comment: <100 mg/dl OPTIMAL 100 - 129 mg/dl NEAR OR ABOVE OPTIMAL 130 - 159 mg/dl BORDERLINE HIGH 160 - 189 mg/dl HIGH >190 mg/dl VERY HIGH Performed By: #### T SH, BNP, CMP, T7, LIPID ####[facility] [address] [place] [id number]. Eusebia Moralez Triglyceride [Mass/Vol] 113 mg/dL Normal <=150 [facility] Comment on above: Performed By: #### T SH, BNP, CMP, T7, LIPID ####[facility] [address] [id number]. Eusebia Moralez VLDL CALC 22.6 mg/dL Normal [facility] Comment on above: Performed By: #### T SH, BNP, CMP, T7, LIPID ####[facility] [address] [place] [id number]. Eusebia Moralez PROF 14(COMP METB)on 022 Albumin [Mass/Vol] 3.3 g/dL Critically low 3.4-5.0 [facility] Comment on above: Performed By: #### T SH, BNP, CMP, T7, LIPID #### [facility] [address] [address] [address] Eusebia Moralez Albumin/Globulin [Mass ratio] 0.9 {ratio} Normal [facility] Comment on above: Performed By: #### T SH, BNP, CMP, T7, LIPID #### [facility] [address] [address] [address] Eusebia Moralez ALP [Catalytic activity/Vol] 81 U/L Normal 46-[address] [facility] Comment on above: Performed By: #### T SH, BNP, CMP, T7, LIPID #### [facility] [address] [place] [address] Dr. Eusebia Moralez ALT [Catalytic activity/Vol] 19 U/L Normal 14-[address] [facility] Comment on above: Performed By: #### T SH, BNP, CMP, T7, LIPID #### [facility] [address] [address] [address] Eusebia Moralez Anion gap [Moles/Vol] 12.3 mmol/L Normal [facility] Comment on above: Performed By: #### T SH, BNP, CMP, T7, LIPID #### [facility] [address] [address] [address] Eusebia Moralez AST [Catalytic activity/Vol] 12 U/L Critically low 15-[address] [facility] Comment on above: Performed By: #### T SH, BNP, CMP, T7, LIPID #### [facility] [address] [address] [address] Eusebia Moralez Bilirubin [Mass/Vol] 0.4 mg/dL Normal 0.2-1.[address] [facility] Comment on above: Performed By: #### T SH, BNP, CMP, T7, LIPID #### [facility] [address] [address] [address] Eusebia Moralez Calcium [Mass/Vol] 8.9 mg/dL Normal 8.5-10.1 [facility] Comment on above: Performed By: #### T SH, BNP, CMP, T7, LIPID #### [facility] [address] [place] [address] Dr. Eusebia Moralez Chloride [Moles/Vol] 106 mmol/L Normal 98-[address] [facility] Comment on above: Performed By: #### T SH, BNP, CMP, T7, LIPID #### [facility] [address] [place] [address] Dr. Eusebia Moralez CO2 [Moles/Vol] 27.4 mmol/L Normal 21.0-32.0 [facility] Comment on above: Performed By: #### T SH, BNP, CMP, T7, LIPID #### [facility] [address] [place] [address] Dr. Eusebia Moralez Creatinine [Mass/Vol] 1.51 mg/dL Critically high 0.55-1.[address] [facility] Comment on above: Performed By: #### T SH, BNP, CMP, T7, LIPID #### [facility] [address] [place] [address] Dr. Eusebia Moralez EGFR-AF AFGHAN 41 mL/min/1.73m2 Critically low >=[address] [facility] Comment on above: Performed By: #### T SH, BNP, CMP, T7, LIPID #### [facility] [address] [place] [address] Dr. Eusebia Moralez EGFR-NON AF AFGHAN 34 mL/min/1.73m2 Critically low >=[address] [facility] Comment on above: Performed By: #### T SH, BNP, CMP, T7, LIPID #### [facility] [address] [place] [address] Dr. Eusebia Moralez Globulin (S) [Mass/Vol] 3.5 g/dL Normal [facility] Comment on above: Performed By: #### T SH, BNP, CMP, T7, LIPID #### [facility] [address] [place] [address] Dr. Eusebia Moralez Glucose [Mass/Vol] 129 mg/dL Critically high 74-106 [facility] Comment on above: Performed By: #### T SH, BNP, CMP, T7, LIPID #### [facility] [address] [address] [address] Eusebia Moralez Potassium [Moles/Vol] 4.7 mmol/L Normal 3.5-5.[address] [facility] Comment on above: Performed By: #### T SH, BNP, CMP, T7, LIPID #### [facility] [address] [address] [address] Eusebia Moralez Protein [Mass/Vol] 6.8 g/dL Normal 6.4-8.2 [facility] Comment on above: Performed By: #### T SH, BNP, CMP, T7, LIPID #### [facility] [address] [address] [address] Eusebia Moralez Sodium [Moles/Vol] 141 mmol/L Normal 136-145 [facility] Comment on above: Performed By: #### T SH, BNP, CMP, T7, LIPID #### [facility] [address] [address] [address] Eusebia Moralez Urea nitrogen [Mass/Vol] 37.0 mg/dL Critically high 7.0-18.[address] [facility] Comment on above: Performed By: #### T SH, BNP, CMP, T7, LIPID #### [facility] [address] [address] [address] Eusebia Moralez Urea nitrogen/Creatinine [Mass ratio] 24.5 mg/mg Normal [facility] Comment on above: Performed By: #### T SH, BNP, CMP, T7, LIPID #### [facility] [address] [address] [address] Eusebia Moralez TSHon 01-14-2022 TSH 0.068 uIU/mL Critically low 0.358-3.740 [facility] Comment on above: Performed By: #### T SH, BNP, CMP, T7, LIPID ####[facility] [address] [place] [address]Dr. Eusebia Moralez Covid-19 PCR (CVDTB)on 10-13 SARS-CoV-2 (COVID-19) RNA DEREK+probe Ql (Unsp spec) Not detected Normal NOT DETECTED [facility] Comment on above: Result Comment: This test is not yet approved or cleared by the [place] FDA. When there are no FDA-approved or cleared tests available, and other criteria are met, FDA can make tests available under an emergency access mechanism called an Emergency Use Authorization (EUA). The EUA for this test is supported by the [employer] Director of Health and Human Service's (HHS's) declaration [...] consistent with SARS-CoV-2. Performed By: #### [facility] ####[facility] [address] [place], [place] [address]Tr. Eusebia Moralez MRI LSPINE WO CONon 10-11-19 [...] AMBAR MAYA Date: 2021-10-10 07:29 Normal [facility] Pulmonary Progress Noteo n 09-13-2020 [facility] Pulmonary Progress Note [facility] Pt Name: VERO SADLER [address] [place] [address] MR#: [id number] [place] [address] ACCT: [id number] PROGRESS NOTE- Pulmonary : [facility] Date of Service: 09/13/20 Text NAME: VERO SADLER MR#: [id number] DATE OF SERVICE: 09/13/2020 OUTPATIENT PULMONARY PROGRESS [...] disease, severity unknown. We will try to [facility] Pt Name: VERO SADLER [address] [place] [address] MR#: [id number] [place] [address] ACCT: [id number] PROGRESS NOTE- Pulmonary : [facility] [...] postoperative management if needed. TIM TOSCANO MD DI/MODL/076763/[id number] 2 CC: Dr. Rito Guerrero MD eSi Date and Time Tim Toscano MD Signature on File 09/26/20 1046 Normal [facility] GLYCO HEMOon 08-23-2020 HbA1c (Bld) [Mass fraction] 5.3 % Normal [facility] Comment on above: Result Comment: Milagro cevallosmindy Diagnosis HbA1c (%) --------- Diabetic > 6.4 Prediabetes 5.7-6.4 Normal < 5.7 Performed By: #### L 500.68530 #### Test performed at: [address] [address] CBC W/DIFFon 08-22-2020 BASO ABS 0.0 K/uL Normal 0.0-0.2 [facility] Comment on above: Performed By: #### L 200.49680 #### Test performed at: [address] [address] Basophils/100 WBC (Bld) 0.5 % Normal [facility] Comment on above: Performed By: #### L 200.90052 #### Test performed at: [address] [address] EOS ABS 0.1 K/uL Normal 0.0-0.5 [facility] Comment on above: Performed By: #### L 200.71378 #### Test performed at: [address] [address] Eosinophils/100 WBC (Bld) 1.2 % Normal [facility] Comment on above: Performed By: #### L 200.01750 #### Test performed at: [address] [address] Erythrocyte distribution width (RBC) [Ratio] 12.8 % Normal 11.5-14.5 [facility] Comment on above: Performed By: #### L 200.45055 #### Test performed at: [address] [address] Hematocrit (Bld) [Volume fraction] 40.1 % Normal 36.0-48.0 [facility] Comment on above: Performed By: #### L 200.01162 #### Test performed at: [address] [address] Hemoglobin (Bld) [Mass/Vol] 12.4 g/dL Normal 12.0-15.0 [facility] Comment on above: Performed By: #### L 200.35757 #### Test performed at: [address] [address] IG % 0.3 % Normal [facility] Comment on above: Performed By: #### L 200.46367 #### Test performed at: [address] [address] IG ABS 0.02 K/uL Normal 0-0.05 [facility] Comment on above: Performed By: #### L 200.74786 #### Test performed at: [address] [address] Lymphocytes (Bld) [#/Vol] 1.3 10*3/uL Normal 1.2-3.5 [facility] Comment on above: Performed By: #### L 200.44749 #### Test performed at: [address] [address] Lymphocytes/100 WBC (Bld) 16.9 % Normal [facility] Comment on above: Performed By: #### L 200.05251 #### Test performed at: [address] [address] MCH (RBC) [Entitic mass] 29.0 pg Normal 25.4-34.6 [facility] Comment on above: Performed By: #### L 200.73056 #### Test performed at: [address] [address] MCHC (RBC) [Mass/Vol] 30.9 g/dL Low 31.5-36.5 [facility] Comment on above: Performed By: #### L 200.95335 #### Test performed at: [address] [address] MCV (RBC) [Entitic vol] 93.7 fL Normal 79.0-98.0 [facility] Comment on above: Performed By: #### L 200.71220 #### Test performed at: [address] [address] MONO ABS 0.8 K/uL Normal 0.0-1.0 [facility] Comment on above: Performed By: #### L 200.35080 #### Test performed at: [address] [address] Monocytes/100 WBC (Bld) 9.7 % Normal [facility] Comment on above: Performed By: #### L 200.65625 #### Test performed at: [address] [address] NEUTROPHIL ABS 5.5 K/uL Normal 1.4-6.6 [facility] Comment on above: Performed By: #### L 200.95253 #### Test performed at: [address] [address] Neutrophils/100 WBC (Bld) 71.4 % Normal [facility] Comment on above: Performed By: #### L 200.66816 #### Test performed at: [address] [address] NRBC # 0.000 K/uL Normal 0-0.012 [facility] Comment on above: Performed By: #### L 200.91019 #### Test performed at: [address] [address] NRBC % 0.0 /100 WBC Normal 0-0.2 [facility] Comment on above: Performed By: #### L 200.72380 #### Test performed at: [address] [address] Platelet mean volume (Bld) [Entitic vol] 10.1 fL Normal 8.7-12.4 [facility] Comment on above: Performed By: #### L 200.64802 #### Test performed at: [address] [address] Platelets (Bld) [#/Vol] 236 10*3/uL Normal 140-440 [facility] Comment on above: Performed By: #### L 200.54480 #### Test performed at: [address] [address] RBC (Bld) [#/Vol] 4.28 10*6/uL Normal 3.5-5.5 [facility] Comment on above: Performed By: #### L 200.93112 #### Test performed at: [address] [address] WBC (Bld) [#/Vol] 7.7 10*3/uL Normal 3.9-11.0 [facility] Comment on above: Performed By: #### L 200.02485 #### Test performed at: [address] [address] CHEST PA/AP & LATERAL OR 2 V WSon 08-22-2020 CHEST PA/AP & LATERAL OR 2 VWS STUDY: CHEST PA/AP LATERAL OR 2 VWS; 08/22/2020 2:35 pm INDICATION: COPD. COMPARISON: None. ACCESSION NUMBER(S): [id number] ORDERING CLINICIAN: Ovidio Baez FINDINGS: The lungs are clear without pleural effusion. Borderline cardiomegaly. Otherwise unremarkable mediastinum, eron, and pulmonary vasculature. Thoracic degenerative changes are present. IMPRESSION: No active disease in the chest. Normal [facility] [facility] META PANELon 08-22-2020 Albumin [Mass/Vol] 3.4 g/dL Normal 3.4-5.0 [facility] Comment on above: Performed By: #### L 500.85043, L500.84191, L500.61739 #### Test performed at: [address] [address] ALK PHOS TOTAL 88 U/L Normal 45-117 [facility] Comment on above: Performed By: #### L 500.52775, L500.84860, L500.58681 #### Test performed at: [address] [address] ALT [Catalytic activity/Vol] 17 U/L Normal 13-61 [facility] Comment on above: Performed By: #### L 500.35958, L500.74323, L500.35029 #### Test performed at: [address] [address] AST [Catalytic activity/Vol] 12 U/L Low 15-37 [facility] Comment on above: Performed By: #### L 500.76582, L500.86643, L500.41591 #### Test performed at: [address] [address] BILI TOTAL 0.5 mg/dL Normal 0.2-1.0 [facility] Comment on above: Performed By: #### L 500.55145, L500.42941, L500.23756 #### Test performed at: [address] [address] Calcium [Mass/Vol] 9.0 mg/dL Normal 8.5-10.1 [facility] Comment on above: Performed By: #### L 500.66343, L500.41473, L500.31369 #### Test performed at: [address] [address] Chloride [Moles/Vol] 107 mmol/L Normal 98-107 [facility] Comment on above: Performed By: #### L 500.87922, L500.43115, L500.43175 #### Test performed at: [address] [address] CO2 [Moles/Vol] 29 mmol/L Normal 21-32 [facility] Comment on above: Performed By: #### L 500.25432, L500.73847, L500.49567 #### Test performed at: [address] [address] Creatinine [Mass/Vol] 1.280 mg/dL High 0.550-1.020 [facility] Comment on above: Performed By: #### L 500.51463, L500.30796, L500.23904 #### Test performed at: [address] [address] Glucose [Mass/Vol] 90 mg/dL Normal 70-99 [facility] Comment on above: Result Comment: Fast ing GLUCOSE reference range has been updated per (ADA) [place] [employer]'s recommendation. 06/07/2018 Performed By: #### L 500.98394, L500.01186, L500.05722 #### Test performed at: [address] [address] Potassium [Moles/Vol] 4.4 mmol/L Normal 3.5-5.1 [facility] Comment on above: Performed By: #### L 500.24991, L500.51536, L500.84864 #### Test performed at: [address] [address] Protein [Mass/Vol] 6.8 g/dL Normal 6.4-8.2 [facility] Comment on above: Performed By: #### L 500.37637, L500.67754, L500.33566 #### Test performed at: [address] [address] Sodium [Moles/Vol] 142 mmol/L Normal 136-145 [facility] Comment on above: Performed By: #### L 500.30675, L500.55639, L500.26986 #### Test performed at: [place] [address] Urea nitrogen [Mass/Vol] 21 mg/dL High 7-18 [facility] Comment on above: Performed By: #### L 500.75978, L500.19861, L500.56156 #### Test performed at: [place] [address] GFR ESTIMATEon 08-22-2020 IF AMER 50 Low > 60 [facility] Comment on above: Result Comment: eGFR (Estimated GFR) Units of measure:mL/min/1.73 meters sq. *CALCULATION REVISED 01/01/2015;IDMS-traceable MDRD equation eGFR is derived from the reexpressed MDRD Study equation using the following parameters: serum creatinine, age, gender and race. An eGFR<60 mL/min/1.73m2 for >3 months is consistent with chronic kidney disease. Refer to KDOQI guidelines for clinical interpretation. Performed By: #### L 500.95240, L500.86207, L500.71748 #### Test performed at: [place] [address] IF non-AFR AMER 41 Low > 60 [facility] Comment on above: Performed By: #### L 500.05637, L500.85659, L500.66493 #### Test performed at: [place] [address] TSH ULTRA SENSon 08-22-2020 TSH ULTRA SENS < 0.005 Low 0.358-3.74 [facility] Comment on above: Performed By: #### L 500.62521, L500.51127, L500.20387 #### Test performed at: [place] [address] [address] [address] LUMB SP COMP W FLEX/EXT 6 VW Son 07-23-2020 LUMB SP COMP W FLEX/EXT 6 VWS STUDY: LUMB SP COMP W FLEX/EXT 6 VWS ; 07/23/2020 9:01 am INDICATION: PAIN. COMPARISON: None. ACCESSION NUMBER(S): [id number] ORDERING CLINICIAN: Sacha Guerrero FINDINGS: No fracture [...] spine without instability. Normal [facility] Vital Signs Date Time Vital Sign Value Performing Clinician Facility 10-05-2024 [id number] Body height 162.56 cm Dbebie Bhatia MD Work Phone: [facility] 10-05-2024 11:07-0400 Body mass index (BMI) [Ratio] 49.8 kg/m2 Debbie Bhatia MD Work Phone: [facility] 10-05-2024 11:07-0400 Body weight 131.54 kg Debbie Bhatia MD Work Phone: [facility] 10-05-2024 11:07-0400 Diastolic blood pressure 71 mm[Hg] Debbie Bhatia MD Work Phone: [facility] 10-05-2024 11:07-0400 Heart rate 79 /min Debbie Bhatia MD Work Phone: [facility] 10-05-2024 11:07-0400 Respiratory rate 16 /min Debbie Bhatia MD Work Phone: [facility] 10-05-2024 11:07-0400 SaO2% (BldA) [Mass fraction] 97 % Debbie Bhatia MD Work Phone: [facility] 10-05-2024 11:07-0400 Systolic blood pressure 112 mm[Hg] Debbie Bhatia MD Work Phone: [facility] 09-11-2024 13:21-0400 Body height 162.6 cm John Mathews MD Work Phone: [facility] 09-11-2024 13:21-0400 Body mass index (BMI) [Ratio] 50.46 kg/m2 John Mathews MD Work Phone: [facility] 09-11-2024 13:21-0400 Body weight 133.36 kg John Mathews MD Work Phone: [facility] 09-11-2024 13:21-0400 Diastolic blood pressure 65 mm[Hg] John Mathews MD Work Phone: [facility] 09-11-2024 13:21-0400 Heart rate 84 /min John Mathews MD Work Phone: [facility] 09-11-2024 13:21-0400 Systolic blood pressure 104 mm[Hg] John Mathews MD Work Phone: [facility] 08-09-2024 09:39-0400 Body height 162.6 cm John Mathews MD Work Phone: [facility] 08-09-2024 09:39-0400 Body mass index (BMI) [Ratio] 50.46 kg/m2 John Mathews MD Work Phone: [facility] 08-09-2024 09:39-0400 Body weight 133.36 kg John Mathews MD Work Phone: [facility] 08-09-2024 09:39-0400 Diastolic blood pressure 61 mm[Hg] John Mathews MD Work Phone: [facility] 08-09-2024 09:39-0400 Heart rate 80 /min John Mathews MD Work Phone: [facility] 08-09-2024 09:39-0400 Systolic blood pressure 105 mm[Hg] John Mathews MD Work Phone: [facility] 07-19-2024 14:20-0400 Diastolic blood pressure 60 mm[Hg] Debbie Bhatia MD Work Phone: [facility] 07-19-2024 14:20-0400 Heart rate 67 /min Debbie Bhatia MD Work Phone: [facility] 07-19-2024 14:20-0400 Respiratory rate 18 /min Debbie Bhatia MD Work Phone: [facility] 07-19-2024 14:20-0400 SaO2% (BldA) [Mass fraction] 98 % Debbie Bhatia MD Work Phone: [facility] 07-19-2024 14:20-0400 Systolic blood pressure 132 mm[Hg] Debbie Bhatia MD Work Phone: [facility] 07-19-2024 11:23-0400 Body height 162.56 cm Debbie Bhatia MD Work Phone: [facility] 07-19-2024 11:23-0400 Body weight 133.81 kg Debbie Bhatia MD Work Phone: [facility] 07-13-2024 10:50-0400 Blood Pressure Location ROSETTA NKANSAH-AMANKRA [facility] 07-13-2024 10:50-0400 Diastolic blood pressure 82 mm[Hg] ROSETTA NKANSAH-AMANKRA [facility] 07-13-2024 10:50-0400 Heart rate 74 /min ROSETTA NKANSAH-AMANKRA [facility] 07-13-2024 10:50-0400 SaO2% (BldA) [Mass fraction] 94 % ROSETTA NKANSAH-AMANKRA [facility] 07-13-2024 10:50-0400 Systolic blood pressure 170 mm[Hg] ROSETTA NKANSAH-AMANKRA [facility] 07-13-2024 09:45-0400 Blood Pressure Location ROSETTA NKANSAH-AMANKRA [facility] 07-13-2024 09:45-0400 Body temperature 97.34 [degF] ROSETTA NKANSAH-AMANKRA [facility] 07-13-2024 09:45-0400 Diastolic blood pressure 78 mm[Hg] ROSETTA NKANSAH-AMANKRA [facility] 07-13-2024 09:45-0400 Heart rate 67 /min ROSETTA NKANSAH-AMANKRA [facility] 07-13-2024 09:45-0400 Mean blood pressure 109 mm[Hg] ROSETTA NKANSAH-AMANKRA [facility] 07-13-2024 09:45-0400 Respiratory rate 13 /min ROSETTA NKANSAH-AMANKRA [facility] 07-13-2024 09:45-0400 SaO2% (BldA) [Mass fraction] 93 % ROSETTA NKANSAH-AMANKRA [facility] 07-13-2024 09:45-0400 Systolic blood pressure 170 mm[Hg] ROSETTA NKANSAH-AMANKRA [facility] 07-13-2024 09:44-0400 SaO2% (BldA) [Mass fraction] 91 % ROSETTA NKANSAH-AMANKRA [facility] 07-13-2024 09:30-0400 Respiratory rate 13 /min ROSETTA NKANSAH-AMANKRA [facility] 07-13-2024 09:30-0400 Heart rate 68 /min ROSETTA NKANSAH-AMANKRA [facility] 07-13-2024 09:30-0400 Blood Pressure Location ROSETTA NKANSAH-AMANKRA [facility] 07-13-2024 09:30-0400 Diastolic blood pressure 71 mm[Hg] ROSETTA NKANSAH-AMANKRA [facility] 07-13-2024 09:30-0400 Mean blood pressure 98 mm[Hg] ROSETTA NKANSAH-AMANKRA [facility] 07-13-2024 09:30-0400 Systolic blood pressure 153 mm[Hg] ROSETTA NKANSAH-AMANKRA [facility] 07-13-2024 09:25-0400 Respiratory rate 18 /min ROSETTA NKANSAH-AMANKRA [facility] 07-13-2024 09:25-0400 Mean blood pressure 98 mm[Hg] ROSETTA NKANSAH-AMANKRA [facility] 07-13-2024 09:20-0400 Respiratory rate 12 /min ROSETTA NKANSAH-AMANKRA [facility] 07-13-2024 09:15-0400 Body temperature 97.16 [degF] ROSETTA NKANSAH-AMANKRA [facility] 07-13-2024 09:15-0400 Respiratory rate 12 /min ROSETTA NKANSAH-AMANKRA [facility] 07-13-2024 07:27-0400 Mean blood pressure 113 mm[Hg] ROSETTA NKANSAH-AMANKRA [facility] 07-13-2024 07:26-0400 Mean blood pressure 121 mm[Hg] ROSETTA NKANSAH-AMANKRA [facility] 07-13-2024 07:24-0400 Respiratory rate 20 /min ROSETTA ROBBANSAH-AMANKRA [facility] 07-13-2024 07:24-0400 Body temperature 97.7 [degF] ROSETTAVIVIANE SOSAAH-AMANKRA [facility] 06-27-2024 11:14-0400 Body height 160.02 cm [facility] 06-27-2024 11:14-0400 Body mass index (BMI) [Ratio] 53 kg/m2 [facility] 06-27-2024 11:14-0400 Body temperature 97.6 [degF] [facility] 06-27-2024 11:14-0400 Body weight 135.79 kg [facility] 06-27-2024 11:14-0400 Diastolic blood pressure 77 mm[Hg] [facility] 06-27-2024 11:14-0400 Heart rate 101 /min [facility] 06-27-2024 11:14-0400 Respiratory rate 18 /min [facility] 06-27-2024 11:14-0400 SaO2% (BldA) [Mass fraction] 93 % [facility] 06-27-2024 11:14-0400 Systolic blood pressure 157 mm[Hg] [facility] 06-26-2024 13:31-0400 Heart rate 67 /min ROSETTA SHEILAAH-AMANKRA [facility] 06-26-2024 13:31-0400 SaO2% (BldA) [Mass fraction] 94 % ROSETTA ROBBANSAH-AMANKRA [facility] 06-26-2024 13:30-0400 Respiratory rate 20 /min ROSETTA NKANSAH-AMANKRA [facility] 06-20-2024 09:36-0400 Body height 162.6 cm John Mathews MD Work Phone: [facility] 06-20-2024 09:36-0400 Body mass index (BMI) [Ratio] 50.46 kg/m2 John Mathews MD Work Phone: [facility] 06-20-2024 09:36-0400 Body weight 133.36 kg John Mathews MD Work Phone: [facility] 06-20-2024 09:36-0400 Diastolic blood pressure 78 mm[Hg] John Mathews MD Work Phone: [facility] 06-20-2024 09:36-0400 Systolic blood pressure 175 mm[Hg] John Mathews MD Work Phone: [facility] 05-09-2024 08:38-0500 Body height 162.6 cm John Mathews MD Work Phone: [facility] 05-09-2024 08:38-0500 Body mass index (BMI) [Ratio] 50.81 kg/m2 John Mathews MD Work Phone: [facility] 05-09-2024 08:38-0500 Body weight 134.26 kg John Mathews MD Work Phone: [facility] 05-09-2024 08:38-0500 Diastolic blood pressure 90 mm[Hg] John Mathews MD Work Phone: [facility] 05-09-2024 08:38-0500 Heart rate 87 /min John Mathews MD Work Phone: [facility] 05-09-2024 08:38-0500 Systolic blood pressure 170 mm[Hg] John Mathews MD Work Phone: [facility] 03-31-2024 14:50-0500 Blood Pressure Location ROSETTA SOSAAH-AMANKRA [facility] 03-31-2024 14:50-0500 Diastolic blood pressure 82 mm[Hg] ROSETTA NKANSAH-AMANKRA [facility] 03-31-2024 14:50-0500 Heart rate 86 /min ROSETTA NKANSAH-AMANKRA [facility] 03-31-2024 14:50-0500 Respiratory rate 16 /min ROSETTA NKANSAH-AMANKRA [facility] 03-31-2024 14:50-0500 Systolic blood pressure 152 mm[Hg] ROSETTA NKGARYAH-AMANKRA [facility] 01-06-2024 13:02-0400 Body height 162.56 cm [facility] 01-06-2024 13:02-0400 Body mass index (BMI) [Ratio] 50.5 kg/m2 [facility] 01-06-2024 13:02-0400 Body temperature 96.3 [degF] [facility] 01-06-2024 13:02-0400 Body weight 133.46 kg [facility] 01-06-2024 13:02-0400 Diastolic blood pressure 90 mm[Hg] [facility] 01-06-2024 13:02-0400 Heart rate 81 /min [facility] 01-06-2024 13:02-0400 Respiratory rate 18 /min [facility] 01-06-2024 13:02-0400 SaO2% (BldA) [Mass fraction] 98 % [facility] 01-06-2024 13:02-0400 Systolic blood pressure 179 mm[Hg] [facility] Encounters Encounter Date Encounter Type Care Provider Facility Start: 02-20-2025 ambulatory MD ROSETTA MENDEZ Facility:[facility] Start: 11-14-2024 ambulatory [facility] Start: 10-24-2024 End: 10-24-2024 ambulatory [facility] Start: 10-23-2024 End: 10-23-2024 ambulatory Cande Garcia MD Facility:[facility] Start: 10-16-2024 End: 10-16-2024 ambulatory Cadne Garcia MD Facility:[facility] Start: 10-05-2024 End: 10-05-2024 ambulatory Debbie Bhatia MD Work Phone: [facility] Work Phone: Start: 10-05-2024 End: 10-05-2024 Patient encounter procedure Lizette Schaffer MD -[facility] Work Phone: Start: 09-25-2024 End: 09-25-2024 ambulatory Cande Garcia MD Facility[facility] Start: 09-22-2024 End: 09-22-2024 Patient encounter procedure Lizette Schaffer MD -[facility] Work Phone: Start: 09-22-2024 End: 09-22-2024 ambulatory Debbie Bhatia MD Work Phone: [facility] Work Phone: Start: 09-11-2024 End: 09-11-2024 Bamjalil Mathews MD Work Phone: [facility] Start: 09-11-2024 End: 09-11-2024 Ankit Mathews MD Work Phone: [facility] Start: 09-11-2024 End: 09-11-2024 Office outpatient visit 15 minutes John Mathews MD Work Phone: [facility] Comment on above: ETD (Eustachian tube dysfunction), right (Primary Dx); Chronic mastoiditis, right Start: 09-11-2024 End: 09-11-2024 ambulatory JOHN MATHEWS Not Available Start: 08-25-2024 End: 08-25-2024 ambulatory DEBBIE BHATIA [facility] Start: 08-22-2024 ambulatory [facility] Start: 08-21-2024 ambulatory [facility] Start: 08-21-2024 End: 08-21-2024 ambulatory MD ROSETTA MENDEZ Facility:[facility] Start: 08-21-2024 End: 08-21-2024 Patient encounter procedure ROSETTA MENDEZ [facility] Start: 08-15-2024 End: 08-15-2024 Clinisync Result Encounter John Mathews MD Work Phone: [facility] Unsolicited Start: 08-15-2024 End: 08-15-2024 Clinisync Result Encounter John Mathesw MD Work Phone: [facility]solic[facility] Start: 08-09-2024 End: 08-09-2024 Ankit Mathews MD [...] / Non-visit Yong Bhatia MD Work Phone: [facility] Work Phone: Start: 07-19-2024 End: 07-19-2024 Admission to same day surgery center Debbie Bhatia MD Work Phone: [facility] Work Phone: Start: 07-19-2024 End: 07-19-2024 ambulatory Debbie Bhatia MD Work Phone: [facility] Work Phone: Start: 07-18-2024 ambulatory [facility] Start: 07-13-2024 End: 07-13-2024 Admission to same day surgery center ROSETTAVIVIANE MENDEZ [facility] Start: 07-13-2024 End: 07-13-2024 ambulatory MD ROSETTA MENDEZ Facility:[facility] Start: 06-27-2024 End: 06-27-2024 ambulatory [place] Work Phone: Start: 06-27-2024 End: 06-27-2024 Patient encounter procedure [facility] Work Phone: Start: 06-26-2024 End: 06-26-2024 Clinisync Result Encounter John Mathews MD Work Phone: [facility]solic[facility] Start: 06-26-2024 End: 06-26-2024 Clinisync Result Encounter John Mathews MD Work Phone: [facility]olic[facility] Start: 06-26-2024 End: 06-26-2024 ambulatory ROSETTA MENDEZ Facility:[facility] Start: 06-26-2024 End: 06-26-2024 Patient encounter procedure ROSETTA MENDEZ [facility] Start: 06-20-2024 End: 06-20-2024 Bamboo flowsmone Mathews MD Work Phone: [facility] Start: 06-20-2024 End: 06-20-2024 Ankit Mathews MD Work Phone: [facility] Start: 06-20-2024 Non-patient / Non-visit [facility] Work Phone: Start: 06-20-2024 End: [...] Available Start: 05-19-2024 End: 05-19-2024 ambulatory [facility] Facility[facility] Start: 05-09-2024 End: 05-09-2024 Bamboo lor Mathews MD Work Phone: [facility] Start: 05-09-2024 End: 05-09-2024 Jozefo lor Mathews MD Work Phone: [facility] Start: 05-09-2024 End: 05-09-2024 Clinisync Result Encounter John Mathews MD Work Phone: [facility]solic[facility] Start: 05-09-2024 End: 05-09-2024 ambulatory [facility] Start: 05-09-2024 End: 05-09-2024 Office outpatient new 45 minutes John Mathews MD Work Phone: [facility] Comment on above: OME (otitis media wi th effusion), right (Primary Dx); Nonintractable headache, unspecified chronicity pattern, unspecified headache type Start: 05-09-2024 End: 05-09-2024 ambulatory JOHN MATHEWS Not Available Start: 05-05-2024 End: 05-05-2024 ambulatory ROSETTA CHANO Facility:[facility] Start: 05-05-2024 End: 05-05-2024 Patient encounter procedure ROSETTA CHANO [facility] Start: 05-01-2024 End: 05-01-2024 ambulatory Cande Garcia MD Facility:[facility] Start: 03-31-2024 End: 03-31-2024 ambulatory Debbie Bhatia Facility: [facility] Start: 03-31-2024 End: 03-31-2024 Patient encounter procedure ROSETTADOMINIQUE MENDEZ [facility] Start: 02-22-2024 ambulatory ROSETTA CHANO Facility:[facility] Start: 02-14-2024 End: 02-14-2024 ambulatory Cande Garcia MD Facility:[facility] Start: 02-08-2024 End: 02-08-2024 ambulatory [facility] Start: 01-26-2024 End: 01-26-2024 ambulatory TATO [facility] Start: 01-06-2024 End: 01-06-2024 ambulatory [place] Work Phone: Start: 01-06-2024 End: 01-06-2024 Patient encounter procedure [facility] [place] Work Phone: Start: 11-23-2023 End: 11-23-2023 [facility] other specified [facility] Start: 11-23-2023 End: 11-23-2023 ambulatory RYAN MEEHAN [facility] Start: 07-17-2022 End: 07-18-2022 ambulatory [...] Start: 05-19-2024 Flexible cystoscope (physical object) ROSETTA ZAMUDIOANSAH-AMANKRA Start: 05-09-2024 Radex sinuses parana roland compl minimum 3 views John Mathews MD Work Phone: Start: 02-09-2023 End: 02-09-2023 Colonoscopy ROSETTA ZAMUDIOANSAH-JUSTINA KRA Start: 07-06-2018 Colonoscopy ROSETTA NK MILO-AMANKRA Cataract extraction and insertion of intraocular lens ROSETTA NKANSAH-AMANKRA ft (qualifier value) ROSETTA NKANSAH-AMANKRA H/O: hysterectomy ROSETTA NK MILO-AMANKRA Hysterectomy ROSETTA NKANSAH -AMANKRA Procedure ROSETTA NKANSAH -AMANKRA Total hysterectomy ROSETTA N KANSAH-AMANKRA Plan of Treatment Date Care Activity Detail Author Start: 02-09-2033 Screening for malign ant neoplasm of colon [facility] Start: 11-13-2024 Influenza vaccination Influenz a Vaccine (Season Ended) [facility] Start: 09-22-2024 Bacteria identified in Urine by Culture Urine Culture [facility] Start: 09-22-2024 Immunofixation for Urine [facility] Start: 09-22-2024 Urine culture [facility] Start: 09-22-2024 [facility] Start: 09-11-2024 End: 09-11-2024 Patient encounter procedure 09/11/2024 1:30 PM EDT Office Visit [facility] [address] [place] [address] John Mathews MD [address] [place] [address] Arrived [facility] Comment on above: Arrived Start: 08-30-2024 End: 08-30-2024 Patient encounter procedure 08/30/2024 9:50 AM EDT Office Visit [facility] [address] [place] [address] John Mathews MD [address] [place] [address] [facility] Start: 08-09-2024 End: 08-09-2024 Patient encounter procedure [facility] Comment on above: Arrived Start: 07-19-2024 End: 07-19-2024 [facility] Start: 06-20-2024 End: 06-20-2024 Patient encounter procedure [facility] Comment on above: Arrived Start: 05-09-2024 End: 05-09-2024 Patient encounter procedure 05/09/2024 8:40 AM EST Office Visit [facility] [address] [place] [address] John Mathews MD [address] [place] [address] Arrived [facility] Comment on above: Arrived Start: 11-14-2023 Influenza vaccination Influenza Vacc ine (#1) [facility] Start: 02-20-2016 Pneumococcal Vaccine : 65+ Years (1 of 1 - PCV) Pneumococcal Vaccine: 65+ Years (1 of 1 - PCV) [facility] Start: 2001 Pneumococcal Vaccine : 65+ Years (1 of 1 - PCV) Pneumococcal Vaccine: 65+ Years (1 of 1 - PCV) [facility] Start: 1991 Screening for malign ant neoplasm of breast Mammogram [facility] Start: 1951 Screening for malign ant neoplasm of colon [facility] Albumin [Mass/volume ] in Serum or Plasma [facility] Albumin/Globulin ratio [facility] Electrophoresis: [id number] [facility] Electrophoresis: [id number] [facility] Electrophoresis: beta-globulin [facility] Electrophoresis: gracie ma globulin [facility] Globulin [Mass/volum e] in Serum [facility] IgA [Mass/volume] in Serum or Plasma [facility] IgG [Mass/volume] in Serum or Plasma [facility] IgM [Mass/volume] in Serum or Plasma [facility] Immunofixation for Urine [facility] [place] light chains.f ree [Mass/volume] in Serum [facility] [place] light chains.free/Lambda light chains.free [Mass Ratio] in Serum [facility] [facility] Lambda light chains. free [Mass/volume] in Serum or Plasma [facility] Patient Education Hemorrhoids Co shreya polyps Diverticulosis Know your Meds [facility] Work Phone: Protein [Mass/volume ] in Serum or Plasma [facility] Renal function 1999 panel - Serum or Plasma [facility] Renal function 1999 panel - Serum or Plasma [facility] Renal function 1999 panel - Serum or Plasma [facility] Serum immunofixation [facility] Immunizations Immunization Date Immunization Notes Care Provider Fa cility 01-07-2021 SARS-CoV-2 (COVID-19 ) mRNA BNT-162b2 vax ROSETTA NKANSAH-AMANKRA [facility] 12-17-2020 SARS-CoV-2 (COVID-19 ) mRNA BNT-162b2 vax ROSETTA NKANSAH-AMANKRA [facility] Payers Date Payer Category Payer Self-pay 2024 Unknown 2022 Medicare [id number] 2018 Private Health Insurance [id number] 2013 Medicare [id number] 1959 Medicare [id number] 1959 Unknown [id number] 1951 Unknown [id number] 2.16.84 0.1.199328.3.579.2.593 1951 Unknown [id number] 2.16.84 0.1.956286.3.579.2.593 1951 Unknown [id number] 2.16.84 0.1.276378.3.579.2.593 1951 Unknown [id number] 2.16.84 0.1.230509.3.579.2.593 1951 Unknown [id number] 2.16.84 0.1.414054.3.579.2.593 1951 Unknown [id number] 2.16.84 0.1.231151.3.579.2.593 1951 Unknown [id number] 2.16.84 0.1.233965.3.579.2.593 1951 Unknown [id number] 2.16.84 0.1.907790.3.579.2.593 1951 Unknown [id number] 2.16.84 0.1.275848.3.579.2.593 1951 Unknown [id number] 2.16.84 0.1.965465.3.579.2.593 1951 Unknown [id number] 2.16.84 0.1.317778.3.579.2.593 1951 Unknown [id number] 2.16.84 0.1.343826.3.579.2.593 1951 Unknown [id number] 2.16.84 0.1.228952.3.579.2.593 1951 Unknown [id number] 2.16.84 0.1.605178.3.579.2.593 1951 Unknown [id number] 2.16.8 40.1.487500.3.579.2.727 1951 Unknown [id number] 2.16.8 40.1.032644.3.579.2.727 1951 Unknown [id number] 2.16.8 40.1.581097.3.579.2.727 1951 Unknown [id number] 2.16.8 40.1.735814.3.579.2.727 1951 Unknown [id number] 2.16.8 40.1.747857.3.579.2.1259 1951 Unknown [id number] 2.16.84 0.1.443993.3.579.2.1259 1951 Unknown [id number] 2.16.84 0.1.685405.3.579.2.1259 1951 Unknown [id number] 2.16.84 0.1.757894.3.579.2.1259 1951 Unknown [id number] 2.16.8 40.1.270669.3.579.2.727 1951 Unknown [id number] 2.16.8 40.1.349582.3.579.2.727 1951 Unknown [id number] 2.16.8 40.1.249488.3.579.2.727 1951 Unknown [id number] 2.16. 840.1.686096.3.579.2.196 1951 Unknown [id number] 2.16. 840.1.509259.3.579.2.196 1951 Unknown [id number] 2.16. 840.1.717360.3.579.2.196 1951 Unknown [id number] 2.16. 840.1.602785.3.579.2.196 1950 Unknown [id number] 2.16. 840.1.324253.3.579.2.196 Unknown [id number] Unknown [id number] 2.16.8 40.1.256066.3.579.2.531 Unknown [id number] 2.16.8 40.1.136858.3.579.2.531 Social History Date Type Detail Facility Start: 01-06-2024 End: 07-19-2024 Tobacco smoking status NHIS Ex-smoker (finding) [facility] Start: 1950 Sex Assigned At Female F [facility] Tobacco smoking status Never [facility] Start: 05-09-2024 End: 08-09-2024 Sex Assigned At Female [facility] Tobacco smoking stat [facility] Tobacco smoking consumption unknown [facility] Start: 1950 Sex assigned at Not on file [facility] Start: 05-09-2024 Tobacco smoking stat [facility] Never smoked tobacco [facility] Start: 05-09-2024 Tobacco use and exposure Smokeless tobacco non-user [facility] Start: 05-09-2024 End: 09-11-2024 Alcoholic beverage intake Ex-drinker (finding) [facility] Start: 05-09-2024 End: 08-09-2024 History of Social function [facility] Tobacco [facility] Comment on above: quit in 2009 Tobacco smoking status [facility] Start: 07-09-2016 End: 07-19-2024 Sex Female (finding) [facility] Goals Date Patient Goal Desired Activity /State Functional Status Date Assessment Result Facility 06-26-2024 Functional Status No [facility] 03-31-2024 Functional Status N/A [facility] Clinical Notes 01-26-2024 to 10-24-2024 John Mathews MD - 09/11/2024 1:30 PM EDTHimary Mathews MD - 08/09/2024 9:40 AM EDT Note Date & Type Note Facility 10-24-2024 Note [place] [facility] Consul t Note Reason for visit: follow up after PPM. 10/24/24 Patient is here today for a device check and a 6 month follow up appointment. Patient states he has not been feeling very well. Patient states she has been having headaches in the back of her head and down her neck and into her shoulders, the headaches causes dizziness/waviness which only last about a minute, several have lasted and hour and a half, patient states she came to the ER and was admitted. Patient states her chiropractor requested appointment with cardiology. Patient complains of chest pain, night sweats, leg swelling. Denies SOB, palpitations/racing heart. Device check done today shows dual-chamber pacemaker with normal functioning and no episodes of any atrial fibrillation. She was recently hospitalized with concerns for a TIA. MRI could not be done but 2 CTs done did not reveal any evidence of CVA. 05/09/24 Patient was recently seen by Dr. [...] kidney disease COPD (chronic obstructive pulmonary disease) ([facility]) Hypertension Myocardial infarction ([facility]) Obstructive sleep apnea 10/02/2022 SOBIA=17.7 events/hour; Pranav SaO2=76%; Fvdiej=460.0 lbs; BMI=52.7 kg/m2, Home Sleep Apnea Testing on 09/25/2022 at [facility] PSH: Past Surgical History: Procedure Laterality Date CARDIAC CATHETERIZATION COLONOSCOP (more content not included)... [facility] 09-11-2024 History of Present illness Narrative Subjective [...] Active Ambulatory Problems Diagnosis Date Noted A-fib ([facility]) 04/21/2022 Chest pain 07/27/2016 CKD (chronic kidney disease) stage 4, GFR 15-29 ml/min ([facility]) 01/26/2024 Clinical trial exam 04/23/2022 Dyspnea 07/27/2016 Edema 07/27/2016 Essential hypertension 01/25/2020 Fatigue 07/27/2016 Hyperkalemia 01/26/2024 Lightheadedness 07/27/2016 Lower abdominal pain 01/30/2022 Nonsustained paroxysmal ventricular tachycardia ([facility]) 11/30/2022 Obstructive sleep apnea syndrome 10/02/2022 Other secondary pulmonary hypertension ([facility]) 12/15/2022 Secondary hyperparathyroidism ([facility]) 01/26/2024 Spinal stenosis of lumbar region with neurogenic claudication 01/30/2022 Spondylosis of lumbosacral region without myelopathy or radiculopathy 01/30/2022 Symptomatic bradycardia 01/01/2023 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 VT (ventricular tachycardia) ([facility]) 04/29/2022 Aspirin long-term use 05/09/2024 CAD (coronary artery disease) 05/09/2024 Chronic obstructive pulmonary disease (HCC) 05/09/2024 Former smoker 05/09/2024 History of colon polyps 05/09/2024 History of tobacco abuse 05/09/2024 Hypercholesterolemia 05/09/2024 Hypothyroidism 05/09/2024 Kidney stones 05/09/2024 Morbid obesity ([facility] 05/09/2024 Multiple pulmonary nodules 05/09/2024 Stage 3a chronic kidney disease ([facility]) 01/31/2024 Status post lumbar spine operation 05/09/2024 [...] tx documented in this encounter [facility] 08-25-2024 Note History: possible TIA Procedure: [...] right mastoid sinus Electronically signed: Estrada Raman. [facility] Comment on above: Order Comment: Order in [facility] 08-21-2024 Hospital Discharge instructions Patient Education 08/21/2024 [...] nerve stimulation). ?For women, using a medical record librarian to prevent urine leaks. This is a [...] right after experiencing incontinence. General instructions Take mvrl-gnk-depfgsd and prescription medicines only as told by [...] important. Where to find more information [employer] [place] of [employer] and Digestive and Kidney Diseases: www.niddk.nih.gov [place] [employer] [employer]: www.urologyhealth.org Contact a health care [...] provider. Document Revised: 10/04/2020 Document Reviewed: 10/04/2020 [email or web address] Patient Education 2023 [employer]. Follow Up Care 07/14/2024 09:39:25 With:ROSETTA MENDEZ MD, URL Address: When: Unknown [facility] 08-21-2024 Note Patient Education Urology Urinary [...] stimulation). ? For women, using a medical record librarian to prevent urine leaks. This is a [...] health care provider (more content not included)... [facility] 08-09-2024 History of Present illness Narrative Subjective Patient ID: Vero Sadler is a 74 y.o. female who presents for Ear Problem (S/p RT tube/Nasal ENDO [facility]H 07/06/24) Pt reports for 2 1/2 weeks after tube placed she had severe RT milky otorrhea. Currently on mult abx for a LE infection. No family history on file. Active Ambulatory Problems Diagnosis Date Noted A-fib ([facility]) 04/21/2022 Chest pain 07/27/2016 CKD (chronic kidney disease) stage 4, GFR 15-29 ml/min ([facility]) 01/26/2024 Clinical trial exam 04/23/2022 Dyspnea 07/27/2016 Edema 07/27/2016 Essential hypertension ([facility]) 01/25/2020 Fatigue 07/27/2016 Hyperkalemia 01/26/2024 Lightheadedness 07/27/2016 Lower abdominal pain 01/30/2022 Nonsustained paroxysmal ventricular tachycardia (CMS/HCC) 11/30/2022 Obstructive sleep apnea syndrome 10/02/2022 Other secondary pulmonary hypertension 12/15/2022 Secondary hyperparathyroidism ([facility]/HCC) 01/26/2024 Spinal stenosis of lumbar region with neurogenic claudication 01/30/2022 Spondylosis of lumbosacral region without myelopathy or radiculopathy 01/30/2022 Symptomatic bradycardia 01/01/2023 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[facility]/HCC) 01/05/2023 VT (ventricular tachycardia) (CMS/[facility]) 04/29/2022 Aspirin long-term use 05/09/2024 CAD (coronary artery disease) (CMS/HCC) 05/09/2024 Chronic obstructive pulmonary disease (CMS/HCC) 05/09/2024 Former smoker 05/09/2024 History of colon polyps 05/09/2024 History of tobacco abuse 05/09/2024 Hypercholesterolemia (CMS/HCC) 05/09/2024 Hypothyroidism (CMS/HCC) 05/09/2024 Kidney stones 05/09/2024 Morbid obesity (CMS/HCC) 05/09/2024 Multiple pulmonary nodules 05/09/2024 Stage 3a chronic kidney disease (HCC) (CMS/HCC) 01/31/2024 Status post lumbar spine operation 05/09/2024 [...] mild RT myringitis documented in this encounter [facility] 07-19-2024 Procedure note [facility] enter 07-19-2024 History and physi magnolia note [facility] enter 07-15-2024 Note Progress Note-Physic stacy Patient: VERO SADLER Age: 74 years Sex: Female : 1950 Associated Diagnoses: None Author: Pedro Walden MD Postoperative Information Postoperative disposition: Postoperative disposition: To PACU. Optimetrix number: Optimetrix number [id number]. Anesthetic utilized: General. Health Status Allergies: Allergic Reactions (Selected) Severity Not Documented Adhesive Bandage- Hives. Physical Examination VS/Measurements Pain Assessment: Controlled. General: Awake, Appropriate. Respiratory: Adequate air exchange. Cardiovascular: Stable. Neurological Assessment Anesthetic outcome No anesthetic complications noted. Adequate pain relief. Review / Management Condition: Stable. Plan Transfer/Discharge: Transfer/Discharge Discharge when meets criteria ( To home ). [facility] Comment on above: Result Comment: Elec tronically Signed By: Pedro Walden MD\.br\Date and Time Signed: 07/15/24 16:46 EDT 07-13-2024 Hospital Discharge instructions Patient Education 07/13/2024 10:40:08 Post Op Patient Instructions - FT (CUSTOM) Follow Up Care 05/19/2024 09:13:05 With:ROSETTA MENDEZ Address:Unknown When: Unknown Comments:[address] [facility] 07-13-2024 Note Patient Education - Text [facility] 07-13-2024 Note Progress Note-Physic stacy Patient: [...] Problems Aspirin long-term use / SNOMED CT 9400460529 / Confirmed Atrial fibrillation / SNOMED CT 23512731 / Confirmed Bradycardia / SNOMED CT 41358060 / Confirmed CAD (coronary artery disease) / SNOMED CT 90995606 / Confirmed Chronic kidney disease due to hypertension.. / SNOMED CT 7099510800 / Confirmed Chronic kidney disease stage 3A. / SNOMED CT 5941460525 / Confirmed Chronic kidney disease stage 4 / SNOMED CT 6949614117 / Confirmed Chronic kidney disease, stage 3 / SNOMED CT 5000140646 / Confirmed Chronic obstructive pulmonary disease / SNOMED CT 86700981 / Confirmed Former smoker / SNOMED CT 71305241 / Confirmed History of colon polyps / SNOMED CT 7028276842 / Confirmed History of operative procedure on lumbar spinal structure / SNOMED CT 0847611322 / Confirmed History of tobacco abuse / SNOMED CT 1019780367 / Confirmed Hypercholesterolemia / SNOMED CT 63678524 / Confirmed Hyperkalemia / SNOMED CT 49040107 / Confirmed Hypertension / SNOMED CT 8514151691 / Confirmed Hypertensive disorder / SNOMED CT 6933366206 / Confirmed Hypothyroidism / SNOMED CT 34704775 / Confirmed Morbid obesity / SNOMED CT 861930407 / Confirmed Multiple pulmonary nodules / SNOMED CT 8435700735 / Confirmed Pulmonary hypertension / SNOMED CT 097166259 / Confirmed Spinal stenosis / SNOMED CT 086856597 / Confirmed Stress incontinence, female / SNOMED CT 638294517 / Confirmed Canceled: Kidney stones / SNOMED CT 587457717 pt denies, Active Problems (23) Aspirin long-term [...] or recorded. Fam (more content not included)... [facility] Comment on above: Result Comment: Elec tronically Signed By: Pedro Walden MD\.br\Date and Time Signed: 07/13/24 08:41 EDT 07-12-2024 Evaluation + Plan note Extrac lani from: Title:ANES Pre-operative Note 2022 Author:Pedro Villalpando Date:07/12/24 Plan [place] [employer] (ASA) physical status classification: Class III. Anesthetic Preoperative Plan: Anesthesia Monitored anethesia care. [facility] 04-15-2025 Evaluation note* Diagnosis Onset Date [...] Secondary hyperparathyroidism acute June 27, 2024 10:58am [facility] Work Phone: [phone]) 128-829504-08-2025 History of Present illness Narrative* John Mathews [...] Active Ambulatory Problems Diagnosis Date Noted A-fib ([facility]) 04/21/2022 Chest pain 07/27/2016 CKD (chronic kidney disease) stage 4, GFR 15-29 ml/min ([facility]/HCC) 01/26/2024 Clinical trial exam 04/23/2022 Dyspnea 07/27/2016 Edema 07/27/2016 Essential hypertension (CMS/HCC) 01/25/2020 Fatigue 07/27/2016 Hyperkalemia 01/26/2024 Lightheadedness 07/27/2016 Lower abdominal pain 01/30/2022 Nonsustained paroxysmal ventricular tachycardia ([facility]/HCC) 11/30/2022 Obstructive sleep apnea syndrome 10/02/2022 Other secondary pulmonary hypertension 12/15/2022 Secondary hyperparathyroidism ([facility]/HCC) 01/26/2024 Spinal stenosis of lumbar region with neurogenic claudication 01/30/2022 Spondylosis of lumbosacral region without myelopathy or radiculopathy 01/30/2022 Symptomatic bradycardia 01/01/2023 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 VT (ventricular tachycardia) ([facility]) 04/29/2022 Aspirin long-term use 05/09/2024 CAD (coronary artery disease) (CMS/HCC) 05/09/2024 Chronic obstructive pulmonary disease (CMS/HCC) 05/09/2024 Former smoker 05/09/2024 History of colon polyps 05/09/2024 History of tobacco abuse 05/09/2024 Hypercholesterolemia ([facility]/HCC) 05/09/2024 Hypothyroidism ([facility]CC) 05/09/2024 Kidney stones 05/09/2024 Morbid obesity ([facility]/HCC) 05/09/2024 Multiple pulmonary nodules 05/09/2024 Stage 3a chronic kidney disease (HCC) ([facility]) 01/31/2024 Status post lumbar spine [...] 10d [facility]op [id number] NotePatient Education Obstetrics and Gynecology Kegel Exercises [...] provider. Document Revised: 07/10/2021 Document Reviewed: 07/10/2021 [email or web address] Patient Education ? 2023 [employer].[facility] 05-09-2024 NoteUT Cardiology Consult Note Reason [...] sleep apnea 10/02/2022 SOBIA=17.7 events/hour; Pranav SaO2=76%; Ugwsbk=051.0 lbs; BMI=52.7 kg/m2, Home Sleep Apnea Testing on 09/25/2022 at [facility] PSH: Past Surgical History: Procedure Laterality Date CARDIAC CATHETERIZATION COLONOSCOPY 02/09/2023 EYE SURGERY CATARACT FOOT SURGERY Right tendon repair HYSTERECTOMY INSERT / REPLACE / REMOVE PACEMAKER 01/12/2023 OTHER SURGICAL HISTORY Bilateral 05/31/2023 S1 TFESI - 20% pain relief SH: Social Determinants of Health Tobacco Use: Low Risk (05/09/2024) Re[facility] from [facility] Patient History Smoking Tobacco Use: Never [...] Transportation Needs (01/05/2023) Tr (more content not included)...[facility]02-[facility]25 History of Present illness Narrative* John Mathews MD - 05/09/2024 8:40 AM EST Subjective Patient ID: Vero Sadler is a 74 y.o. female who presents for Ear Problem (Audio 05/04/24 schmidbauer ) Pt had the flu 4 weeks ago and now unable to hear on the RT. Also has RT LAMBERT. No tx yet per pt. 05/04audio shows moderate to severe right mixed HL with a flat tymp. Review of Systems All other systems reviewed and are negative. No family history on file. Active Ambulatory Problems Diagnosis Date Noted A-fib ([facility]) 04/21/2022 Chest pain 07/27/2016 CKD (chronic kidney disease) stage 4, GFR 15-29 ml/min ([facility]) 01/26/2024 Clinical trial exam 04/23/2022 Dyspnea 07/27/2016 Edema 07/27/2016 Essential hypertension ([facility]) 01/25/2020 Fatigue 07/27/2016 Hyperkalemia 01/26/2024 Lightheadedness 07/27/2016 Lower abdominal pain 01/30/2022 Nonsustained paroxysmal ventricular tachycardia ([facility]) 11/30/2022 Obstructive sleep apnea syndrome 10/02/2022 Other secondary pulmonary hypertension ([facility]) 12/15/2022 Secondary hyperparathyroidism ([facility]) 01/26/2024 Spinal stenosis of lumbar region with neurogenic claudication 01/30/2022 Spondylosis of lumbosacral region without myelopathy or radiculopathy 01/30/2022 Symptomatic bradycardia 01/01/2023 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[facility]) 01/05/2023 VT (ventricular tachycardia) ([facility]) 04/29/2022 Aspirin long-term use 05/09/2024 CAD (coronary artery disease) ([facility]) 05/09/2024 Chronic obstructive pulmonary disease ([facility]) 05/09/2024 Former smoker 05/09/2024 History of colon polyps 05/09/2024 History of tobacco abuse 05/09/2024 Hypercholesterolemia ([facility]) 05/09/2024 Hypothyroidism ([facility]) 05/09/2024 Kidney stones 05/09/2024 Morbid obesity ([facility]) 05/09/2024 Multiple pulmonary nodules 05/09/2024 Stage 3a chronic kidney disease (HCC) ([facility]) 01/31/2024 Status post lumbar spine [...] of LAMBERT. documented [facility] [id number] Hospital Discharge instructions Follow Up Care 04/12/2024 08:02:27 With:ROSETTA MENDEZ MD, URL Address: When: Unknown [facility] [place] [id number] Hospital Discharge instructions Patient Education 03/31/2024 15:09:50 [...] including vitamins, herbs, eye drops, creams, and ifcv-hpa-irjmvme medicines. Any problems you or family members [...] provider tells you to take them. Taking zuxv-awu-eoifyji medicines, vitamins, herbs, and supplements. Tests You [...] Follow these instructions at home: Medicines Take perf-xdz-oyjvifa and prescription medicines only as told by [...] provider. Document Revised: 11/12/2021 Document Reviewed: 10/11/2020 [email or web address] Patient Education 2023 [email or web address] 03/31/2024 15:09:42 Injection Treatments for Urinary [...] including vitamins, herbs, eye drops, creams, and eevi-ohr-ozkguxy medicines. Any problems you or family members [...] provider tells you to take them. Taking hqjs-qti-pvptoqa medicines, vitamins, herbs, and supplements. General instructions [...] provider. Document Revised: 10/04/2020 Document Reviewed: 10/04/2020 [email or web address] Patient Education 2023 [employer]. 03/31/2024 15:09:34 Kegel Exercises Kegel Exercises Kegel [...] provider. Document Revised: 07/10/2021 Document Reviewed: 07/10/2021 [email or web address] Patient Education 2023 [employer]. Follow Up Care 02/22/2024 14:36:40 With:ROSETTA MENDEZ MD, SASKIA Address: When: Unknown [facility] 01-17-2025 NotePatient Education Obstetrics and Gynecology [...] Reviewed: 07/10/2021 Elsevier Patient Education ? 2023 [employer]. Urology Cystoscopy Cystoscopy is a procedure that [...] including vitamins, herbs, eye drops, creams, and yjrl-nny-tawgqyh medicines. ??? Any problems you or family [...] tells you to take them. ??? Taking dstl-hut-ozesuly medicines, vitamins, herbs, and supplements. Tests You may have an exam or testing, such as: ??? X-rays of the bladder, urethra, or kidneys. ??? CT scan of the abdomen or pelvis. ??? Urine tests to check for signs of infection. General instructions ??? Follow instructions fr (more content not included)...[facility]11-13-2024 [facility] Cardiology Clinic Note Chief Complaint: Patient is here today for follow up [facility] ED visit. She was having chest [...] obstructive pulmonary disease) (CMS/HCC), Hypertension, Myocardial infarction ([facility]), and Obstructive sleep apnea (10/02/2022). [...] Disp: 479 g, Rfl (more content not included)...[facility] note No data available for this section [facility] Evaluation + Plan note Future Appointments Appointment Date:07/13/2024 09:00:00 AM Scheduled Provider: Location:[facility] Appointment Type:Surgery FT [facility] Evaluation + Plan note Future Appointments Appointment Date:02/20/2025 11:00:00 AM Scheduled Provider:ROSETTA MENDEZ MD Location:[facility] Appointment Type:URO Office Visit [facility] Evaluation note* Diagnosis Onset Date Resolution Status CKD (chronic kidney disease) stage 4, GFR 15-29 ml/min acute Hyperkalemia acute [id number] acute Secondary hyperparathyroidism acute Chronic kidney disease nonea ctive [facility] Work Phone: Evaluation note* Diagnosis OME [...] Secondary hyperparathyroidism acute June 27, 2024 10:58am [facility] Work Phone: Evaluation note* Diagnosis ETD (Eustachian tube dysfunction), right- Primary CSF otorrhea Chronic myringitis of right ear [facility] Diagnosis ETD (Eustachian tube dysfunction), right- Primary Chronic mastoiditis, right [facility]* Diagnosis Onset Date Resolution Status Admit Date Anemia of renal disease acute J zach 2024 11:03am CKD (chronic kidney disease) stage 4, GFR 15-29 ml/min acute October 05, 025 11:03am Hyperkalemia acute October 05 11:03am Hyperlipidemia acute October 05, 2024 11:03am Hypertensive chronic kidney disease with stage 1 through stage 4 chronic ki acute October 05, 2024 11:03am Hyperuricemia acute October 05, 2024 11:03am Hypomagnesemia acute October 05, 2024 11:03am Secondary hyperparathyroidism acute October 05, 2024 11:03am [facility] Work Phone: History and physical note Author Kal Molina [facility] Note Date/Time July 19, 2024 1:20pm [facility] [address] [place] [address] Gastroenterology H&P Signed Patient: Vero Sadler MR#: [id number] : 1950 Acct:[id number] Age/Sex: 74 / F Adm Date: 5 Loc: Room: Type: [facility] Attending Dr: Kal Molina MD Copies to: [...] signed by Kal Molina MD> 07/19/24 1320 [facility] Work Phone: Hospital Discharge instructions No data available for this section [facility] Progress note No data available for this section [facility] Caroline Reason for referral (narrative)No reason for referral information [facility] Work Phone: Summary Purpose Family History No [...] disease) stage 4, GFR 15-29 ml/min Hyperkalemia [id number] Secondary hyperparathyroidism Chronic kidney disease Chief Complaint [...] and content) DATE CREATED AUTHOR 09/08/[address] [facility] DATE CREATED AUTHOR AUTHOR'S ORGANIZ ATION 09/27/2020 [facility] DATE CREATED AUTHOR AUTHOR'S ORGANIZ ATION 07/24/2022 [facility] DATE CREATED AUTHOR AUTHOR'S ORGANIZ ATION 06/27/2024 [facility] DATE CREATED AUTHOR AUTHOR'S ORGANIZ ATION 09/12/2024 [facility] DATE CREATED AUTHOR AUTHOR'S ORGANIZ ATION 09/13/2024 Connor Fannin [facility] DATE CREATED AUTHOR AUTHOR'S ORGANIZ ATION 10/11/2024 [facility] DATE CREATED AUTHOR AUTHOR'S ORGANIZ ATION 11/01/2024 [facility] DATE CREATED AUTHOR AUTHOR'S ORGANIZ ATION 11/15/2024 [facility] Care Teams (unrecognized sec tion and [...] Role Status Gabo Bhatia MD Primary Care Provide r, Referring Provider Active Start: January 06, 2024 End: January 06, 2024 Lizette Schaffer MD Attending Provider Active Start : January 06, 2024 End: January 06, 2024 Web Content Producer Relationship Specialty Start Date End Date Debbie Bhatia MD [address] [place] [address] PCP - General Family Medicine 05/09/24 Web Content Producer Relationship Specialty Start Date End Date Debbie Bhatia MD [address] [place] [address] PCP - General Family Medicine 05/09/24 Web Content Producer Relationship Specialty Start Date End Date Debbie Bhatia MD [address] [place] [address] PCP - General Family Medicine 05/09/24 Web Content Producer Relationship Specialty Start Date End Date Debbie Bhatia MD [address] [place] [address] PCP - General Family Medicine 05/09/24 Team Status: Active Member Role Status Dates Debbie Bhatia MD Primary Care Provider Active Start: July 19, 2024 Kal Mloina MD Attending Provider, Other Provider Act sim Start: July 19, 2024 Web Content Producer Relationship Specialty Start Date End Date Debbie Bhatia MD [address] [place] [address] PCP - General Family Medicine 08/02/24 Web Content Producer Relationship Specialty Start Date End Date Debbie Bhatia MD [address] [place] [address] PCP - General Family Medicine 08/02/24 Web Content Producer Relationship Specialty Start Date End Date Debbie Bhatia MD [address] [place] [address] PCP - General Family Medicine 08/02/24 Web Content Producer Relationship Specialty Start Date End Date Debbie Bhatia MD [address] [facility] [place] [address] PCP - General Family Medicine 08/02/24 Web Content Producer Relationship Specialty Start Date End Date Debbie Bhatia MD [address] [facility] [place] [address] PCP - General Family Medicine 08/02/24 Team [...] Reason Comments Ear Problem Audio 05/04/24 rika duradn Reason Comments Ear Problem 6 week check [...] BE BASED ON THE PRIMARY CLINICAL RECORDS. [employer] provides no warranty or guarantee of the accuracy or completeness of information in this document.
== END 2024-11-23 14:49 | disposition home or self-care (01) ==
LOC: US 14:48
PROVIDERS: PCP Family Medicine; Visit Provider Internal Medicine Cardiovascular Disease
DX: I65.23 Occlusion and stenosis of bilateral carotid arteries (principal)
CPT/HCPCS: 93880

== ENCOUNTER 2025-01-17 16:43 | Outpatient (OUT) | payer MEDICARE, SELFPAY ==
--- OUTSIDE RECORDS SUMMARY | 2024-08-15 06:15 | XMS_ITS ---
Author Organization The [facility] in [place] Address [address] [place] [address] Care Team Providers Care Assistant To The Dean Name Role Phone Dontrell Arvizu Primary Care Provider [phone] Beatriz Campos Unavailable [phone] REASON FOR VISIT MD Encounters Encounter Location Date Provider Diagnosis The [facility] Oncology [address] [place] [address] 08/15/2024 Beatriz Campos Plan Of Treatment Next Appt Details Provider Name:Beatriz Campos , 01/23/2025 09:30:00 AM, [address] [place], [address], Progress Notes * Vero COLLINS MDOB:[birth year] (74 yo F)Acc No.[id number]:08/15/2024 UNLOCKED PROGRESS NOTE Progress Notes Patient: Mikki Vero RANDALL :?Beatriz Campos M.D.:1950???Age:74 Y ???Sex:FemaleDate:08/15/2024Phone:[phone]:[address] , [place], [place]Qph:Dontrell Arvizu Subjective: * Chief Complaints: * 1 . MD. * Medical History: Objective: * Vitals: Assessment: Plan: * Treatment: * * Electronic signature of Beatriz Campos MD, [id number] on 01/17/2025 at 04:46 PM ESTSign off status: PendingVisit Status:?CANC (Cancelled) * Provider: Noel Campos M.D. Date: 0 08/15/2024 Generated for Printing/Faxing/eTransmitting on:?01/17/2025 04:46 PM EST
--- OUTSIDE RECORDS SUMMARY | 2024-08-15 10:00 | XMS_ITS ---
Author Organization The [facility] in [place] Address [address] [place] [address] Care Team Providers Care Television Mechanic Name Role Phone Dontrell Arvizu Primary Care Provider Beatriz Campos Unavailable [phone] REASON FOR VISIT MD Encounters Encounter Location Date Provider Diagnosis The [facility] Oncology [address] [place] [address] 08/15/2024 Beatriz Campos Plan Of Treatment Next Appt Details Provider Name:Beatriz Campos , 01/23/2025 09:30:00 AM, [address] [place], [address], Progress Notes * Vero COLLINS MDOB:[birth year] (74 yo F)Acc No.[id number]:08/15/2024 UNLOCKED PROGRESS NOTE Progress Notes Patient: Mikki Vero RANDALL :?Beatriz Campos M.D.:1950???Age:74 Y ???Sex:FemaleDate:08/15/2024Phone:[phone]:[address] , [place], [place]Knd:Dontrell Arvizu Subjective: * Chief Complaints: * 1 . MD. * Medical History: Objective: * Vitals: Assessment: Plan: * Treatment: * * Electronic signature of Beatriz Campos MD, [id number] on 01/17/2025 at 04:46 PM ESTSign off status: PendingVisit Status:?CANC (Cancelled) * Provider: Noel Campos M.D. Date: 0 08/15/2024 Generated for Printing/Faxing/eTransmitting on:?01/17/2025 04:46 PM EST
--- OUTSIDE RECORDS SUMMARY | 2024-08-22 10:00 | XMS_ITS ---
Author Organization [facility] in [place] Address [address] [place] [address] Care Team Providers Care Keg Varnisher Name Role Phone Dontrell Arvizu Primary Care Provider Beatriz Campos Unavailable [phone] REASON FOR VISIT MD Encounters Encounter Location Date Provider Diagnosis [facility] On[facility] [address] [place] [address] 08/22/2024 Beatriz Campos Plan Of Treatment Next Appt Details Provider Name:Beatriz Campos , 01/23/2025 09:30:00 AM, [address] [place], [address], Progress Notes * Vero COLLINS MDOB:[birth year] (74 yo F)Acc No.[id number]:08/22/2024 UNLOCKED PROGRESS NOTE Progress Notes Patient: Mikki Vero RANDALL :?Beatriz Campos M.D.:1950???Age:74 Y ???Sex:FemaleDate:08/22/2024Phone:[phone]:[address] , [place], [place]Iyi:Dontrell Arvizu Subjective: * Chief Complaints: * 1 . MD. * Medical History: Objective: * Vitals: Assessment: Plan: * Treatment: * * Electronic signature of Beatriz Campos MD, [id number] on 01/17/2025 at 04:46 PM ESTSign off status: PendingVisit Status:?ANSPH (Voice) * Provider: Noel Campos M.D. Date: 0 08/22/2024 Generated for Printing/Faxing/eTransmitting on:?01/17/2025 04:46 PM EST
--- OUTSIDE RECORDS SUMMARY | 2025-01-17 16:46 | XMS_ITS | Patient Health Record ---
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 Name Role Phone Dontrell Arvizu Primary Care Provider BillyBhavana canales Unavailable [phone] Beatriz Campos Unavailable [phone] Jaron Donal Unavailable [phone] Allergies Allergen (clinical drug ingredient) Drug/Non Drug Allergy documented on EMR Reaction Allergy Type Onset Date Status Plastic Tape (uncoded)olcvqKtxaspk02/27/2023ctivefluticasoneFlonaseUnknownDrug AllergyActivePenicillinUnknownDrug AllergyActive Results Component Value Reference Range Notes XR FOOT RT 2V Reviewed date:03/11/2024 08:36:26 PM Interpretation: Performing Lab: Notes/Report: Source Facility: [place] [address] [facility] [place] [id number] XRay Report Signed Patient: JUSTIN SADLER MR#: [id number] : 1950 Acct:[id number] Age/Sex: 74 / F ADM Date: 03/10/24 Loc: RAD Attending Dr: Debbie Arvizu M.D. Ordering Physician: Debbie Arvizu M.D. Date of Service: 03/10/24 Procedure(s): XR foot RT 2V Accession Number(s): [id number] cc: Debbie Arvizu M.D. [place] [id number] Patient Name: JUSTIN SADLER MRN: [id number] date: 1950 Sex: F Assigned Patient Location: [facility] Current Patient Location: RAD Accession/Order Number: [id number] Exam Date: 03/10/2024 14:45 Report Date: 03/10/2024 [...] Signed By: 03/10/24 1522 DD/ 1520 TD/TT: Strawberry Grower: CT lower leg LT wo con Reviewed date:08/15/2024 04:17:45 PM Interpretation: Performing Lab: Notes/Report: Source Facility: [place] [address] [place] [address] CT Scan Report Signed Patient: JUSTIN SADLER MR#: [id number] : 1950 Acct:[id number] Age/Sex: 74 / F ADM Date: 08/15/24 Loc: CT Attending Dr: Debbie Arvizu M.D. Ordering Physician: Debbie Arvizu M.D. Date of Service: 08/15/24 Procedure(s): CT lower leg LT wo con Accession Number(s): [id number] cc: Debbie Arvizu M.D. [facility] [place] [address] Patient Name: JUSTIN SADLER MRN: [id number] date: 1950 Sex: F Assigned Patient Location: CT Current Patient Location: CT Accession/Order Number: [id number] Exam Date: 08/15/2024 15:40 Report Date: 08/15/2024 [...] Ashford M.D. 08/15/2024 3:45 PM Dictation Location: [place] [address] Electronically authenticated by: [id number] Y Date: 08/15/2024 15:45 Dictated By: Sacha Ashford D.O. Signed By: 08/15/24 1547 DD/ 1545 TD/TT: Strawberry Grower: CBC AUTO DIFF Reviewed date:01/23/2024 05:32:21 PM Interpretation: Performing Lab: Notes/Report: [facility] , White Blood Count 8.2 4.0-11.0 10 3/uL Red Blood Count4.174.20-5.40 10 6/uXGstwimgggu87.212.0-16.0 g/iLQivryloncl90.5 36.0-48.0 %Mean Corpuscular Nrnlbz74.781.0-99.0 fLMean Corpuscular Hemoglobin 29.326.7-34.0 pgMean Corpuscular HGB Conc30.929.9-35.2 g/dLRed Cell Distribution Width14.111.0-15.0 %Platelet Citdb032085-785 10 3/uLMean Platelet Volume9.39.5- 13.5 fLNeutrophils Percent Auto69.743.0-75.0 %Lymphocytes Percent Auto17.820.5- 60.0 %Monocytes Percent Auto10.51.7-12.0 %Eosinophils Percent Auto1.10.9-7.0 % Basophils Percent Auto0.50.2-2.0 %Immature Granulocytes Pct Auto0.40.0-0.5 % Neutrophils Absolute Auto5.71.4-6.5 10 3/uLLymphocytes Absolute Auto1.51.2-3.8 10 3/uLMonocytes Absolute Auto0.90.3-0.8 10 3/uLEosinophils Absolute Auto0.10.0- 0.7 10 3/uLBasophils Absolute Auto0.00.0-0.1 10 3/uLImmature Granulocytes Abs Auto0.030.00-0.03 10 3/uLPerforming Lab:see noteML - [facility] LB POTASSIUM Reviewed date:01/24/2024 01:26:44 PM Interpretation: Performing Lab: Notes/Report: GOLD [facility] ,Potassium5.53.5-5.1 mmol/LPerforming Lab:see noteML - [facility] LB PROF 14(COMP METB) Reviewed date:01/23/2024 06:00:42 PM Interpretation: Performing Lab: Notes/Report: [facility] ,Mmtxma465498-376 mmol/LPotassium5.33.5-5.1 mmol/GFqypnhjk65223-141 mmol/LCarbon Zvtdonc11.521.0-32.0 mmol/LAnion Gap13.0Ozgdrzo5505-163 mg/dLBlood Urea Nitrogen 30.07.0-18.0 mg/dLCreatinine1.800.55-1.02 mg/dLEstimated GFR ( Cxirije15 >=60 mL/min/1.73m 2Estimated GFR (Non- Ame28>=60 mL/min/1.73m 2BUN Creatinine Ratio16.5Daesncy0.18.5-10.1 mg/dLBilirubin Total0.40.2-1.0 mg/dL Aspartate Amino Swjmmpelixy7778-74 U/LAlanine Akawwydsemtkjfru111-45 U/LAlkaline Iczquxqnbyk9163-446 U/LTotal Protein6.66.4-8.2 g/dLAlbumin Level3.03.4-5.0 g/dL Globulin3.6Albumin Globulin Ratio0.8Performing Lab:see noteML - [facility] LBProthrombin Time INR Reviewed date:01/23/2024 05:40:30 PM Interpretation: Performing Lab: Notes/Report: [facility] ,Prothrombin Time10.69.0-11.6 secINR1.00 DESIRED INR: 2.0-3.0 CONDITIONS NOT LISTED BELOW 2.5-3.5 FOR PROSTHETIC HEART VALVE REPLACEMENT 2.5-3.5 RECURRENT THROMBOSIS Performing Lab:see noteML - [facility] LBTroponin I High Sensitivity Reviewed date:01/23/2024 06:00:42 PM Interpretation: Performing Lab: Notes/Report: [facility] ,Troponin I High Nhjrbgwjhlo14.04.0-51.3 pg/mL CUT-OFF POINTS HAVE BEEN ESTABLISHED BASED ON THE FOURTH UNIVERSAL DEFINITION OF MYOCARDIAL INFARCTION. THE UPPER REFERENCE LIMIT (URL) OF TROPONIN, DEFINED THE 99TH PERCENTILE OF cTnI DISTRIBUTION IN A REFERENCE POPULATION, HAS BEEN CONFIRMED THE DECISION THRESHOLD FOR MD DIAGNOSIS. 99TH PERCENTILE = 51.4 PG/ML NOTE: HIGH-SENSITIVITY TROPONIN ASSAY IS NOT INTENDED TO BE USED IN ISOLATION BUT SHOULD BE INTERPRETED IN CONJUNCTION WITH OTHER DIAGNOSTIC AND CLINICAL INFORMATION. Performing Lab:see note - [facility] LBECG 12 lead Reviewed date:01/24/2024 01:26:44 PM Interpretation: Performing Lab: Notes/Report: Source Facility: [facility]-[address] [place] [address] [place] [address] Electrocardiograph Report Signed Patient: JUSTIN SADLER MR#: [id number] : 1950 Acct:[id number] Age/Sex: 73 / F ADM Date: 01/23/24 Loc: ER Attending Dr: Ordering Physician: Holli Ocampo Date of Service: 01/23/24 Procedure(s): ECG 12 lead Accession Number(s): [id number] cc: [facility] Test Date: 2024-01-23 Pat Name: JUSTIN SADLER Department: Room: - Gender: Female 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 Signed By: 01/24/24 0515 DD/ 1712 TD/TT: Strawberry Grower:XR chest 1V Reviewed date:01/23/2024 06:00:42 PM Interpretation: Performing Lab: Notes/Report: Source Facility: [place] [address] XRay Report Signed Patient: JUSTIN SADLER MR#: [id number] : 1950 Acct:[id number] Age/Sex: 73 / F ADM Date: 01/23/24 Loc: ER Attending Dr: Ordering Physician: Holli Ocampo Date of Service: 01/23/24 Procedure(s): XR chest 1V Accession Number(s): [id number] cc: Debbie Arvizu M.D.; Holli Ocampo [place] [address] Patient Name: JUSTIN SADLER MRN: [id number] date: 1950 Sex: F Assigned Patient Location: ER Current Patient Location: ER Accession/Order Number: [id number] Exam Date: 01/23/2024 17:28 Report Date: 01/23/2024 [...] M.D. Signed By: 01/23/241754 DD/ 51 TD/TT: Strawberry Grower:Troponin I High Sensitivity Reviewed date:01/24/2024 01:26:44 PM Interpretation: Performing Lab: Notes/Report: GOLD [facility] ,Troponin I High Ozljbjqfpwb95.74.0-51.3 pg/mL CUT-OFF POINTS HAVE BEEN ESTABLISHED BASED ON THE FOURTH UNIVERSAL DEFINITION OF MYOCARDIAL INFARCTION. THE UPPER REFERENCE LIMIT (URL) OF TROPONIN, DEFINED THE 99TH PERCENTILE OF cTnI DISTRIBUTION IN A REFERENCE POPULATION, HAS BEEN CONFIRMED THE DECISION THRESHOLD FOR MD DIAGNOSIS. 99TH PERCENTILE = 51.4 PG/ML NOTE: HIGH-SENSITIVITY TROPONIN ASSAY IS NOT INTENDED TO BE USED IN ISOLATION BUT SHOULD BE INTERPRETED IN CONJUNCTION WITH OTHER DIAGNOSTIC AND CLINICAL INFORMATION. Performing Lab:see noteML - [facility] LBMAGNESIUM Reviewed date:01/31/2024 01:01:36 PM Interpretation: Performing Lab: Notes/Report: [facility] ,Magnesium1.71.8-2.4 mg/dLPerforming Lab:see noteML - [facility] LB RENAL FUNCTION PANEL Reviewed date:01/31/2024 01:01:36 PM Interpretation: Performing Lab: Notes/Report: [facility] ,Vnujps478879-290 mmol/LPotassium4.93.5-5.1 mmol/YQfvpkbsk86026-478 mmol/LCarbon Jnaymeb88.321.0-32.0 mmol/LAnion Gap15.1Bmwwnfe4909-838 mg/dLBlood Urea Nitrogen 32.07.0-18.0 mg/dLCreatinine1.910.55-1.02 mg/dLEstimated GFR ( Fziunio17 >=60 mL/min/1.73m 2Estimated GFR (Non- Ame26>=60 mL/min/1.73m 2BUN Creatinine Ratio16.9Evqdjkt0.88.5-10.1 mg/dLPhosphorus3.12.6-4.7 mg/dLAlbumin Level3.03.4-5.0 g/dLPerforming Lab:see note - [facility] LBUA RANDOM W or MICROSCOPIC Reviewed date:02/01/2024 08:16:19 PM Interpretation: Performing Lab: Notes/Report: [facility] ,Color UrineLT. YELLOWYELLOWClarity UrineCLEARCLEARSpecific [place] Urine1.020 1.005-1.025pH Urine6.05.0-9.0Protein UrineNEGATIVENEG/TRACE mg/dLGlucose Urine UANEGATIVENEGATIVE mg/dLBilirubin UrineNEGATIVENEGATIVEKetones UrineNEGATIVE NEGATIVE mg/dLBlood UrineNEGATIVENEGATIVENitrite UrinePOSITIVENEGATIVE Urobilinogen Urine0.20.2-1.0 EU/dLLeukocyte Esterase UrineTRACENEGATIVEWBC Urine 2-5NONE SEEN #/HPFRBC UrineNONE SEEN0-2 #/HPFBacteria UrineLARGENONE SEEN #/HPF Mucus UrineNONE SEENNONE SEENSquamous Epithelial Cell UrineFEWNONE/RARE #/LPF Performing Lab:see note - [facility] LBURIC ACID SERUM Reviewed date:01/31/2024 01:01:36 PM Interpretation: Performing Lab: Notes/Report: [facility] ,Uric Acid7.62.6-6.0 mg/dLPerforming Lab:see note - [facility] LB URINE T PROTEIN CREAT RATIO Reviewed date:02/01/2024 08:16:19 PM Interpretation: Performing Lab: Notes/Report: [facility] ,Total Protein Urine Cvcjrs17.9<=11.9 mg/dLCreatinine Urine Yeamcq982.2320.00- 300.00 mg/dLProtein Creatinine Ratio Urine0.22Performing Lab:see note - [facility] LBVITAMIN D 25 [place] Reviewed date:01/31/2024 01:44:22 PM Interpretation: Performing Lab: Notes/Report: [facility] ,Vitamin D37.4 <20 ng/mL Vit D deficient 20-<30 ng/mL Vit D insufficient 30-100 ng/mL Vit D sufficient >100 ng/mL Potential Toxicity Performing Lab:see note - [facility] LBCBC no Diff (Hemogram) Reviewed date:01/31/2024 01:01:36 PM Interpretation: Performing Lab: Notes/Report: [facility] ,White Blood Count7.24.0-11.0 10 3/uLRed Blood Count4.004.20-5.40 10 6/uL Fwgrhnikml00.712.0-16.0 g/cSOjymsfjgsq34.736.0-48.0 %Mean Corpuscular Stfeaa11.3 81.0-99.0 fLMean Corpuscular Ozgmnslmsk49.326.7-34.0 pgMean Corpuscular HGB Conc 31.029.9-35.2 g/dLRed Cell Distribution Width13.811.0-15.0 %Platelet Mwxvo180 150-450 10 3/uLMean Platelet Volume9.59.5-13.5 fLPerforming Lab:see note - [facility] LBPTH, Intact Reviewed date:02/01/2024 11:07:43 AM Interpretation: Performing Lab: Notes/Report: [facility] ,PTH, Sgigxn1625-31 pg/mL Performed at: - [facility] [address] [id number] Whiteprinting Machine Operator: Jozef Medina PhD, Phone: [phone] Performing Lab:see note - [facility] LBXR sinus min 3V Reviewed date:05/09/2024 04:10:11 PM Interpretation: Performing Lab: Notes/Report: Source Facility: [facility]-[address] [place] [address] [place] [address] XRay Report Signed Patient: JUSTIN SADLER MR#: [id number] : 1950 Acct:[id number] Age/Sex: 74 / F ADM Date: 05/09/24 Loc: RAD Attending Dr: Lakshmi Mathews M.D. Ordering Physician: Lakshmi Mathews M.D. Date of Service: 05/09/24 Procedure(s): XR sinus min 3V Accession Number(s): [id number] cc: Debbie Arvizu M.D.; Lakshmi Mathews M.D. [place] [address] Patient Name: JUSTIN SADLER MRN: [id number] date: 1950 Sex: F Assigned Patient Location: [facility] Current Patient Location: [facility] Accession/Order Number: [id number] Exam Date: 05/09/2024 12:47 Report Date: 05/09/2024 [...] Kelly Lao M.D.05/09/2024 12:54 PM Dictation Location: [place] [address] Electronically authenticated by: [id number] Y Date: 05/09/2024 12:54 Dictated By: Kelly Lao M.D. Signed By: 05/09/24 1257 DD/ 1254 TD/TT: Strawberry Grower:CBC AUTO DIFF Reviewed date:06/20/2024 03:31:27 PM Interpretation: Performing Lab: Notes/Report: [facility] ,White Blood Count7.54.0-11.0 10 3/uLRed Blood Count3.864.20-5.40 10 6/uL Xmdmettkbd87.112.0-16.0 g/fPFbnqqitixc68.136.0-48.0 %Mean Corpuscular Tmmpur05.5 81.0-99.0 fLMean Corpuscular Fiasnjnumo60.826.7-34.0 pgMean Corpuscular HGB Conc 30.729.9-35.2 g/dLRed Cell Distribution Width13.911.0-15.0 %Platelet Qwjcl305 150-450 10 3/uLMean Platelet Volume9.59.5-13.5 fLNeutrophils Percent Auto73.7 43.0-75.0 %Lymphocytes Percent Auto15.420.5-60.0 %Monocytes Percent Auto9.21.7- 12.0 %Eosinophils Percent Auto0.90.9-7.0 %Basophils Percent Auto0.40.2-2.0 % Immature Granulocytes Pct Auto0.40.0-0.5 %Neutrophils Absolute Auto5.51.4-6.5 10 3/uLLymphocytes Absolute Auto1.21.2-3.8 10 3/uLMonocytes Absolute Auto0.70.3-0.8 10 3/uLEosinophils Absolute Auto0.10.0-0.7 10 3/uLBasophils Absolute Auto0.00.0- 0.1 10 3/uLImmature Granulocytes Abs Auto0.030.00-0.03 10 3/uLPerforming Lab:see noteML - [facility] LBFERRITIN Reviewed date:06/20/2024 03:31:27 PM Interpretation: Performing Lab: Notes/Report: [facility] ,Gmurhvre450.08.0-252.0 ng/mLPerforming Lab:see noteML - [facility] LBFREE T3 Reviewed date:06/20/2024 03:31:27 PM Interpretation: Performing Lab: Notes/Report: [facility] ,Free T32.572.18-3.98 pg/mLPerforming Lab:see noteML - [facility] LB GLYCOHEMOGLOBIN A1C Reviewed date:06/20/2024 03:31:27 PM Interpretation: Performing Lab: Notes/Report: [facility] ,Glycohemoglobin A1C5.24.5-6.2 % ADA RECOMMENDED LIMIT 4.0 - 6.0 ADA THERAPEUTIC TARGET < 7.0 ACTION SUGGESTED > 7.0 Estimated Average Ygqjlal629Nwzzqptjqd Lab:see noteML - [facility] LB IRON AND TIBC Reviewed date:06/20/2024 03:31:27 PM Interpretation: Performing Lab: Notes/Report: [facility] ,Iron51.050.0-170.0 ug/dLTotal Iron Binding Qystbcls156.0250.0-450.0 ug/dL Percent Iron Cqgugosped43.2Performing Lab:see noteML - [facility] LB LIPID PROFILE Reviewed date:06/20/2024 03:31:27 PM Interpretation: Performing Lab: Notes/Report: [facility] ,Grtlumwourgbe50<=150 mg/uJIcisylkewcb334<=200 mg/dLHDL Cjmjbiaqicw4795-32 mg/dL > or =60 mg/dl - LOW CARDIOVASCULAR RISK <40 mg/dl - HIGH CARDIOVASCULAR RISK LDL Cholesterol Pnogskxtto88.0 <100 mg/dl OPTIMAL 100-129 mg/dl NEAR OR ABOVE OPTIMAL 130-159 mg/dl BORDERLINE HIGH 160-189 mg/dl HIGH >190 mg/dl VERY HIGH VLDL ORCHZBMGIFW05.0Chol HDL Ratio2.8 3.3 - 4.4 LOW RISK 4.4 - 7.1 AVERAGE RISK 7.1 - 11.0 MODERATE RISK >11.0 HIGH RISK Performing Lab:see noteML - [facility] LBMAGNESIUM Reviewed date:06/20/2024 03:31:27 PM Interpretation: Performing Lab: Notes/Report: [facility] ,Magnesium1.61.8-2.4 mg/dLPerforming Lab:see noteML - [facility] LB PHOSPHORUS Reviewed date:06/20/2024 03:31:27 PM Interpretation: Performing Lab: Notes/Report: [facility] ,Phosphorus3.72.6-4.7 mg/dLPerforming Lab:see note - [facility] LB PROF 14(COMP METB) Reviewed date:06/20/2024 03:31:27 PM Interpretation: Performing Lab: Notes/Report: [facility] ,Jhthan083254-296 mmol/LPotassium4.83.5-5.1 mmol/JCplredng32406-053 mmol/LCarbon Lokdumg52.221.0-32.0 mmol/LAnion Gap12.8Egywtza5970-953 mg/dLBlood Urea Nitrogen 38.07.0-18.0 mg/dLCreatinine2.100.55-1.02 mg/dLEstimated GFR ( Pdhtjtp08 >=60 mL/min/1.73m 2Estimated GFR (Non- Ame23>=60 mL/min/1.73m 2BUN Creatinine Ratio18.7Xgiisxv1.08.5-10.1 mg/dLBilirubin Total0.50.2-1.0 mg/dL Aspartate Amino Zembfwmxhvj9073-32 U/LAlanine Lqnuafysvwjgzqny8924-04 U/L Alkaline Inbfzllmuqa1681-834 U/LTotal Protein6.96.4-8.2 g/dLAlbumin Level3.03.4- 5.0 g/dLGlobulin3.9Albumin Globulin Ratio0.8Performing Lab:see noteML - [facility] LBT4 Reviewed date:06/20/2024 03:31:27 PM Interpretation: Performing Lab: Notes/Report: [facility] ,T4 Thyroxine8.104.80-13.90 ug/dLPerforming Lab:see noteML - [facility] LBTSH Reviewed date:06/20/2024 03:31:27 PM Interpretation: Performing Lab: Notes/Report: [facility] ,Thyroid Stimulating Hormone0.0080.358-3.740 uIU/mLPerforming Lab:see noteML - [facility] LBUA RANDOM W or MICROSCOPIC Reviewed date:06/20/2024 03:31:27 PM Interpretation: Performing Lab: Notes/Report: [facility] ,Color UrineYELLOWYELLOWClarity UrineCLEARCLEARSpecific [place] Urine1.020 1.005-1.025pH Urine6.05.0-9.0Protein UrineNEGATIVENEG/TRACE mg/dLGlucose Urine UANEGATIVENEGATIVE mg/dLBilirubin UrineNEGATIVENEGATIVEKetones UrineNEGATIVE NEGATIVE mg/dLBlood UrineNEGATIVENEGATIVENitrite UrineNEGATIVENEGATIVE Urobilinogen Urine0.20.2-1.0 EU/dLLeukocyte Esterase UrineTRACENEGATIVEWBC Urine 2-5NONE SEEN #/HPFRBC Urine0-20-2 #/HPFBacteria UrineSMALLNONE SEEN #/HPFMucus UrineTRACENONE SEENSquamous Epithelial Cell UrineMODERATENONE/RARE #/LPFCrystals Seen?None SeenNone Seen #/HPFCast Seen?NONE SEENNONE SEEN #/LPFUrine Culture IndicatedNOPerforming Lab:[facility] LBURIC ACID SERUM Reviewed date:06/20/2024 03:31:27 PM Interpretation: Performing Lab: Notes/Report: [facility] ,Uric Acid8.02.6-6.0 mg/dLPerforming Lab:see noteDay[facility] LB URINE T PROTEIN CREAT RATIO Reviewed date:06/20/2024 03:31:27 PM Interpretation: Performing Lab: Notes/Report: [facility] ,Total Protein Urine Cjifav05.4<=11.9 mg/dLCreatinine Urine Cafafd443.9720.00- 300.00 mg/dLProtein Creatinine Ratio Urine0.24Performing Lab:see noteDay[facility] LBVITAMIN D 25 [place] Reviewed date:06/20/2024 03:31:27 PM Interpretation: Performing Lab: Notes/Report: [facility] ,Vitamin D37.9 <20 ng/mL Vit D deficient 20-<30 ng/mL Vit D insufficient 30-100 ng/mL Vit D sufficient >100 ng/mL Potential Toxicity Performing Lab:see [facility] LBPTH, Intact Reviewed date:06/21/2024 12:49:25 PM Interpretation: Performing Lab: Notes/Report: [facility] ,PTH, Iaoewp8443-77 pg/mL Performed at: [address] [id number] Whiteprinting Machine Operator: Jozef Medina PhD, Phone: [phone] Performing Lab:see [facility] LBImmunofixation, Urine Reviewed date:06/22/2024 08:14:52 PM Interpretation: Performing Lab: Notes/Report: [facility] ,Immunofixation, UrineComment. No monoclonality detected. Performed at: [address] [id number] Whiteprinting Machine Operator: Jozef Medina PhD, Phone: [phone] Performing Lab:see note - [facility] LBIFE, PE and FLC, Serum Reviewed date:06/22/2024 08:14:52 PM Interpretation: Performing Lab: Notes/Report: [facility] ,Immunoglobulin G, Qn, Qriky7932782-5982 mg/dLImmunoglobulin A, Qn, Mgcld87035- 422 mg/dLImmunoglobulin M, Qn, Rvvrp7967-313 mg/dLProtein, Total6.46.0-8.5 g/dL Albumin2.92.9-4.4 g/vDVlcoe-4-Nsbaknay6.30.0-0.4 g/uMXfykt-4-Hcyuomkv1.00.4-1.0 g/dLBeta Globulin1.10.7-1.3 g/dLGamma Globulin1.00.4-1.8 g/dLM-SpikeComment:Not Observed g/dLSPE shows an asymmetrical gamma.Globulin, Total3.52.2-3.9 g/dLA/G Ratio0.90.7-1.7Immunofixation Result, SerumComment:. Presence of monoclonal protein is unclear at this time. Suggest repeat in 3 to 6 months if clinically indicated. Please note:Comment. Protein electrophoresis scan will follow via computer, mail, or jig and fixture builder delivery. Free [place] Lt Chains,S51.53.3-19.4 mg/LFree Lambda Lt Chains,S30.75.7-26.3 mg/L [place]/Lambda Ratio,S1.680.26-1.65 Performed at: [address] [id number] Whiteprinting Machine Operator: Jozef Medina PhD, Phone: [phone] Performing Lab:see noteLC - [facility] LBOccult Blood* Reviewed date:06/22/2024 08:14:52 PM Interpretation: Performing Lab: Notes/Report: [facility] ,Occult BloodPositivePerforming Lab:see noteML - [facility] LBPTT Reviewed date:06/26/2024 08:31:41 PM Interpretation: Performing Lab: Notes/Report: [facility] ,Partial Thromboplastin Time29.322.3-36.2 secPerforming Lab:see noteML - [facility] LBProthrombin Time INR Reviewed date:06/26/2024 08:31:41 PM Interpretation: Performing Lab: Notes/Report: [facility] ,Prothrombin Time11.49.0-11.6 secINR1.08 DESIRED INR: 2.0-3.0 CONDITIONS NOT LISTED BELOW 2.5-3.5 FOR PROSTHETIC HEART VALVE REPLACEMENT 2.5-3.5 RECURRENT THROMBOSIS Performing Lab:see noteML - [facility] LBCBC AUTO DIFF Reviewed date:07/30/2024 09:56:53 PM Interpretation: Performing Lab: Notes/Report: [facility] ,White Blood Count6.54.0-11.0 10 3/uLRed Blood Count4.104.20-5.40 10 6/uL Eajigudgof66.912.0-16.0 g/oYBadvyhvufv62.836.0-48.0 %Mean Corpuscular Phgdwc96.6 81.0-99.0 fLMean Corpuscular Ibrssrygqa43.026.7-34.0 pgMean Corpuscular HGB Conc 30.729.9-35.2 g/dLRed Cell Distribution Width13.211.0-15.0 %Platelet Rqjqb925 150-450 10 3/uLMean Platelet Volume9.99.5-13.5 fLNeutrophils Percent Auto63.7 43.0-75.0 %Lymphocytes Percent Auto21.620.5-60.0 %Monocytes Percent Auto11.91.7- 12.0 %Eosinophils Percent Auto2.00.9-7.0 %Basophils Percent Auto0.50.2-2.0 % Immature Granulocytes Pct Auto0.30.0-0.5 %Neutrophils Absolute Auto4.11.4-6.5 10 3/uLLymphocytes Absolute Auto1.41.2-3.8 10 3/uLMonocytes Absolute Auto0.80.3-0.8 10 3/uLEosinophils Absolute Auto0.10.0-0.7 10 3/uLBasophils Absolute Auto0.00.0- 0.1 10 3/uLImmature Granulocytes Abs Auto0.020.00-0.03 10 3/uLPerforming Lab:see noteML - [facility] LBCRP Reviewed date:07/30/2024 09:56:53 PM Interpretation: Performing Lab: Notes/Report: [facility] ,C Reactive Protein<0.50<=0.50 mg/dLPerforming Lab:see note - [facility] LBLDH Reviewed date:07/30/2024 09:56:53 PM Interpretation: Performing Lab: Notes/Report: [facility] ,Lactate Jxeavukclexen15613-653 U/LPerforming Lab:see noteML - [facility] LBPROF 14(COMP METB) Reviewed date:07/30/2024 09:56:53 PM Interpretation: Performing Lab: Notes/Report: [facility] ,Jvkras807806-173 mmol/LPotassium5.13.5-5.1 mmol/AAxfkxgmw72230-586 mmol/LCarbon Arsgbac37.921.0-32.0 mmol/LAnion Gap9.0Pkbjril3539-250 mg/dLBlood Urea Nitrogen 41.07.0-18.0 mg/dLCreatinine2.450.55-1.02 mg/dLEstimated GFR ( Tgxtyvw36 >=60 mL/min/1.73m 2Estimated GFR (Non- Ame19>=60 mL/min/1.73m 2BUN Creatinine Ratio16.2Zgedpbs4.38.5-10.1 mg/dLBilirubin Total0.40.2-1.0 mg/dL Aspartate Amino Gvphcqrrzjg181-90 U/LAlanine Wxxlrgtnivzzwrze9987-03 U/LAlkaline Blhmzmyuhoi9511-602 U/LTotal Protein6.86.4-8.2 g/dLAlbumin Level3.13.4-5.0 g/dL Globulin3.7Albumin Globulin Ratio0.8Performing Lab:see note - [facility] LBErythrocyte Sedimentation Rate Reviewed date:07/30/2024 09:56:53 PM Interpretation: Performing Lab: Notes/Report: [facility] ,Erythrocyte Sedimentation Rate96<=30 mm/hrPerforming Lab:see note - [facility] LBIFE, PE and FLC, Serum Reviewed date:07/30/2024 09:56:53 PM Interpretation: Performing Lab: Notes/Report: [facility] ,Immunoglobulin G, Qn, Vthdx4734663-4438 mg/dLImmunoglobulin A, Qn, Qsrqx56877- 422 mg/dLImmunoglobulin M, Qn, Yodrw9227-784 mg/dLProtein, Total6.26.0-8.5 g/dL Albumin3.22.9-4.4 g/mKEyajd-0-Ajnadpir3.30.0-0.4 g/uREhlqe-3-Crjqmmyc8.90.4-1.0 g/dLBeta Globulin1.00.7-1.3 g/dLGamma Globulin0.90.4-1.8 g/dLM-SpikeComment:Not Observed g/dLSPE shows an asymmetrical gamma.Globulin, Total3.02.2-3.9 g/dLA/G Ratio1.10.7-1.7Immunofixation Result, SerumComment:. Presence of monoclonal protein is unclear at this time. Suggest repeat in 3 to 6 months if clinically indicated. Please note:Comment. Protein electrophoresis scan will follow via computer, mail, or jig and fixture builder delivery. Free [place] Lt Chains,S42.03.3-19.4 mg/LFree Lambda Lt Chains,S26.65.7-26.3 mg/L [place]/Lambda Ratio,S1.580.26-1.65 Performed at: [address] [id number] Whiteprinting Machine Operator: Jozef Medina PhD, Phone: [phone] Performing Lab:[facility] LBReticulocyte Pct Auto Reviewed date:07/30/2024 09:56:53 PM Interpretation: Performing Lab: Notes/Report: [facility] ,Reticulocyte Pct Auto1.220.60-3.10 %Performing Lab:see note - [facility] LBAnaerobic Culture Reviewed date:08/17/2024 08:13:14 PM Interpretation: Performing Lab: Notes/Report: [facility] ,Anaerobic CultureSee Below For Report Anaerobic Culture Anaerobic CultureSpecimen has been received and testing has been initiated. Anaerobic Culture Anaerobic Culture Anaerobic Culture Anaerobic CultureNo anaerobes recovered. Anaerobic Culture Performing Lab:see noteLC - [facility] LBAerobic Culture Reviewed date:08/17/2024 08:13:14 PM Interpretation: Performing Lab: Notes/Report: [facility] ,Aerobic CultureSee Below For Report Aerobic Culture Aerobic CultureSpecimen has been received and testing has been initiated. Aerobic Culture Aerobic Culture Aerobic Culture Aerobic CultureNo growth in 36 - 48 hours. Aerobic Culture Aerobic CulturePerformed at: - [facility] Aerobic Culture Aerobic [address] [place], [place] [id number] Aerobic Culture Aerobic CultureLab Director: Jozef Medina PhD, Phone: [phone] Aerobic Culture Performing Lab:see note - [facility] LB SEE REPORT - Medical Record Retrieval Specialist Id information not found for OBX-specific vendor specialist legend CT int auditory canals w/o con Reviewed date:08/15/2024 04:17:45 PM Interpretation: Performing Lab: Notes/Report: Source Facility: [place] [address] CT Scan Report Signed Patient: JUSTIN SADLER MR#: [id number] : 1950 Acct:[id number] Age/Sex: 74 / F ADM Date: 08/15/24 Loc: CT Attending Dr: Lakshmi Mathews M.D. Ordering Physician: Lakshmi Mathews M.D. Date of Service: 08/15/24 Procedure(s): CT int auditory canals w/o con Accession Number(s): [id number] cc: Debbie Arvizu M.D. [place] [address] Patient Name: JUSTIN SADLER MRN: [id number] date: 1950 Sex: F Assigned Patient Location: CT Current Patient Location: CT Accession/Order Number: [id number] Exam Date: 08/15/2024 14:47 Report Date: 08/15/2024 [...] Gutierrez M.D. 08/15/2024 2:51 PM Dictation Location: [place] [address] Electronically authenticated by: [id number] Y Date: 08/15/2024 14:51 Dictated By: Victor Manuel Gutierrez M.D. Signed By: 08/15/24 1454 DD/ 1451 TD/TT: Strawberry Grower:Aerobic Culture Reviewed date:09/07/2024 07:14:18 PM Interpretation: Performing Lab: Notes/Report: [facility] ,Aerobic CultureSee Below For Report Aerobic Culture Aerobic CultureMixed skin sonny Aerobic Culture Aerobic CulturePerformed at: [facility] Aerobic Culture Aerobic [address] [place], [place] [id number] Aerobic Culture Aerobic CultureLab Director: Jozef Medina PhD, Phone: [phone] Aerobic Culture Performing Lab:see note - [facility] LB SEE REPORT - Medical Record Retrieval Specialist Id information not found for OBX-specific vendor specialist legend Anaerobic Culture Reviewed date:09/10/2024 02:54:10 PM Interpretation: Performing Lab: Notes/Report: [facility] ,Anaerobic CultureSee Below For Report Anaerobic Culture Anaerobic CultureNo anaerobic growth in 72 hours. Anaerobic Culture Performing Lab:see note - [facility] LBAerobic Culture Reviewed date:09/10/2024 02:54:10 PM Interpretation: Performing Lab: Notes/Report: [facility] ,Aerobic CultureSee Below For Report Aerobic Culture Aerobic CultureMixed skin sonny Aerobic Culture Aerobic CulturePerformed at: [facility] Aerobic Culture Aerobic [address] [place], [place] [id number] Aerobic Culture Aerobic CultureLab Director: Jozef Medina PhD, Phone: [phone] Aerobic Culture Performing Lab:see note - [facility] LB SEE REPORT - Medical Record Retrieval Specialist Id information not found for OBX-specific vendor specialist legend Aerobic Culture Reviewed date:08/13/2024 04:24:34 PM Interpretation: Performing Lab: Notes/Report: [facility] ,Aerobic CultureSee Below For Report Aerobic Culture Aerobic CultureSpecimen has been received and testing has been initiated. Aerobic Culture Aerobic Culture Aerobic Culture Aerobic CultureNo growth in 36 - 48 hours. Aerobic Culture Aerobic CulturePerformed at: [facility] Aerobic Culture Aerobic [address] [place], [place] [id number] Aerobic Culture Aerobic CultureLab Director: Jozef Medina PhD, Phone: [phone] Aerobic Culture Performing Lab:see note - [facility] LB SEE REPORT - Medical Record Retrieval Specialist Id information not found for OBX-specific vendor specialist legend ECG 12 lead Reviewed date:07/30/2024 09:56:53 PM Interpretation: Performing Lab: Notes/Report: Source Facility: [facility]-[address] [place] [address] [place] [address] Electrocardiograph Report Signed Patient: JUSTIN SADLER MR#: [id number] : 1950 Acct:[id number] Age/Sex: 74 / F ADM Date: 07/28/24 Loc: MS 232-[address]: Debbie Arvizu M.D. 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 Measurements Intervals [place] Rate: 80 P: 92 NH: 180 QRS: 37 QRSD: 88 T: 27 QT: 402 QTc: 438 Interpretive Statements [id number] Electronic atrial pacemaker 9120 atypical ECG Compared to ECG 01/23/2024 17:12:55 No significant changes Electronically Signed On 07-29-2024 7:49:53 EDT by LOVE RUBIO M.D. Dictated By: LOVE RUBIO Signed By: 07/29/24 0750 DD/ 5477 TD/TT: Strawberry Grower:Troponin I High Sensitivity Reviewed date:07/30/2024 09:56:53 PM Interpretation: Performing Lab: Notes/Report: [facility] ,Troponin I High Iqeviedkyqi14.04.0-51.3 pg/mL CUT-OFF POINTS HAVE BEEN ESTABLISHED BASED ON THE FOURTH UNIVERSAL DEFINITION OF MYOCARDIAL INFARCTION. THE UPPER REFERENCE LIMIT (URL) OF TROPONIN, DEFINED THE 99TH PERCENTILE OF cTnI DISTRIBUTION IN A REFERENCE POPULATION, HAS BEEN CONFIRMED THE DECISION THRESHOLD FOR MD DIAGNOSIS. 99TH PERCENTILE = 51.4 PG/ML NOTE: HIGH-SENSITIVITY TROPONIN ASSAY IS NOT INTENDED TO BE USED IN ISOLATION BUT SHOULD BE INTERPRETED IN CONJUNCTION WITH OTHER DIAGNOSTIC AND CLINICAL INFORMATION. Performing Lab:see noteML - [facility] LBPROF CHEM 8 (BAS METB) Reviewed date:07/30/2024 09:56:53 PM Interpretation: Performing Lab: Notes/Report: [facility] ,Ulhliz036564-123 mmol/LPotassium4.83.5-5.1 mmol/PSzhrerdq01796-403 mmol/LCarbon Ulwwlll76.521.0-32.0 mmol/LAnion Gap9.0Uelyjjn19824-920 mg/dLBlood Urea Nitrogen 53.07.0-18.0 mg/dLCreatinine2.930.55-1.02 mg/dLEstimated GFR ( Ncdiaob92 >=60 mL/min/1.73m 2Estimated GFR (Non- Ame16>=60 mL/min/1.73m 2BUN Creatinine Ratio18.0Ynffvmd3.48.5-10.1 mg/dLPerforming Lab:see noteML - [facility] LBCBC AUTO DIFF Reviewed date:07/30/2024 09:56:53 PM Interpretation: Performing Lab: Notes/Report: [facility] ,White Blood Count7.24.0-11.0 10 3/uLRed Blood Count3.894.20-5.40 10 6/uL Qcpsyhvyyy87.412.0-16.0 g/iJTornkowayy44.636.0-48.0 %Mean Corpuscular Rcgkxv57.1 81.0-99.0 fLMean Corpuscular Fogqtkcshc17.326.7-34.0 pgMean Corpuscular HGB Conc 31.129.9-35.2 g/dLRed Cell Distribution Width13.411.0-15.0 %Platelet Hmtxn757 150-450 10 3/uLMean Platelet Volume9.69.5-13.5 fLNeutrophils Percent Auto66.4 43.0-75.0 %Lymphocytes Percent Auto18.820.5-60.0 %Monocytes Percent Auto12.41.7- 12.0 %Eosinophils Percent Auto1.70.9-7.0 %Basophils Percent Auto0.40.2-2.0 % Immature Granulocytes Pct Auto0.30.0-0.5 %Neutrophils Absolute Auto4.81.4-6.5 10 3/uLLymphocytes Absolute Auto1.41.2-3.8 10 3/uLMonocytes Absolute Auto0.90.3-0.8 10 3/uLEosinophils Absolute Auto0.10.0-0.7 10 3/uLBasophils Absolute Auto0.00.0- 0.1 10 3/uLImmature Granulocytes Abs Auto0.020.00-0.03 10 3/uLPerforming Lab:see noteML - [facility] LBPROF 14(COMP METB) Reviewed date:07/30/2024 09:56:53 PM Interpretation: Performing Lab: Notes/Report: [facility] ,Folhvv376795-160 mmol/LPotassium4.93.5-5.1 mmol/LNuucawhk14274-823 mmol/LCarbon Viissfk80.921.0-32.0 mmol/LAnion Gap14.2Aahwdai34925-391 mg/dLBlood Urea Ryauyflf94.07.0-18.0 mg/dLCreatinine2.700.55-1.02 mg/dLEstimated GFR ( Rsrvfoq37>=60 mL/min/1.73m 2Estimated GFR (Non- Ame17>=60 mL/min/1.73m 2 BUN Creatinine Ratio20.5Hpbhvpm8.08.5-10.1 mg/dLBilirubin Total0.50.2-1.0 mg/dL Aspartate Amino Daenwwrvoyk6720-84 U/LAlanine Pkoxxhpsgpfwjeuw2617-72 U/L Alkaline Bqhjbevstvu5120-113 U/LTotal Protein6.36.4-8.2 g/dLAlbumin Level2.93.4- 5.0 g/dLGlobulin3.4Albumin Globulin Ratio0.9Performing Lab:see noteML - [facility] LBMAGNESIUM Reviewed date:07/30/2024 09:56:53 PM Interpretation: Performing Lab: Notes/Report: [facility] ,Magnesium1.91.8-2.4 mg/dLPerforming Lab:see noteML - [facility] LB CBC AUTO DIFF Reviewed date:07/30/2024 09:56:53 PM Interpretation: Performing Lab: Notes/Report: [facility] ,White Blood Count6.24.0-11.0 10 3/uLRed Blood Count3.814.20-5.40 10 6/uL Jdqhmbqeap04.912.0-16.0 g/iZMgmvgsdhwk98.336.0-48.0 %Mean Corpuscular Mdgikr66.7 81.0-99.0 fLMean Corpuscular Revtcnpfrq04.626.7-34.0 pgMean Corpuscular HGB Conc 30.929.9-35.2 g/dLRed Cell Distribution Width13.311.0-15.0 %Platelet Svtft600 150-450 10 3/uLMean Platelet Volume9.79.5-13.5 fLNeutrophils Percent Auto60.8 43.0-75.0 %Lymphocytes Percent Auto23.520.5-60.0 %Monocytes Percent Auto13.31.7- 12.0 %Eosinophils Percent Auto1.50.9-7.0 %Basophils Percent Auto0.60.2-2.0 % Immature Granulocytes Pct Auto0.30.0-0.5 %Neutrophils Absolute Auto3.71.4-6.5 10 3/uLLymphocytes Absolute Auto1.51.2-3.8 10 3/uLMonocytes Absolute Auto0.80.3-0.8 10 3/uLEosinophils Absolute Auto0.10.0-0.7 10 3/uLBasophils Absolute Auto0.00.0- 0.1 10 3/uLImmature Granulocytes Abs Auto0.020.00-0.03 10 3/uLPerforming Lab:see noteML - [facility] Reason For Referral Diagnosis 1 Spinal stenosis, lum bar region with neurogenic claudication (M48.062) Referral Organization [facility] Referring Provider First Name Dontrell Referring Provider Last Name [facility] Referring Provider [facility] icine Referred Provider Pain Management, [facility] Referred Provider Specialty Pain Medicin e Referral Priority Routine Diagnosis 1 Bladder prolapse, fe male, acquired (N81.10) Referral Organization [facility] Referring Provider First Name Dontrell Referring Provider Last Name [facility] Referring Provider [facility] icicheryl Referred Provider Ladonna Malagon Referred Provider Specialty Urology Referral Priority Routine Diagnosis 1 Encounter for examin ation of ears and hearing without abnormal findings (Z01.10) Referral Organization [facility] Referring Provider First Name Dontrell Referring Provider Last Name [facility] Referring Provider [facility] icicheryl Referred Provider Lakshmi Mathews Referred Provider Specialty Otolaryngolo gy Referral Priority Routine Reason Patient would like Genia muhammad office please! Diagnosis 1 Hyperproteinemia (E8 8.09) Referral Organization [facility] Referring Provider First Name Dontrell Referring Provider Last Name Nolberto Referring Provider [facility] lanrene Referred Organization [facility] Referred Provider Beatriz Campos Referred Address [address],[place], [place],[address], Referred Provider Specialty Hematology/O ncology Referral Priority Routine Diagnosis 1 Rectal bleeding (K62 .5) Referral Organization [facility] Referring Provider First Name Dontrell Referring Provider Last Name Nolberto [facility]erred Provider Rigoberto Tam Referred Provider Specialty Gastroentero logy Referral Priority Routine Diagnosis 1 Open wound of leg, l eft, subsequent encounter (U21.094G) Referral Organization [facility] Referring Provider First Name Dontrell Referring Provider Last Name Nolberto Referring Provider [facility] Referred Provider Isael Mart Referred Provider Specialty Wound Care Referral Priority Routine Medications Medication SIG (Take, Route, Frequency, Duration) Notes Start Date End Date Status Azelastine HCl 137 MCG/SPRAY INSTILL 1 S PRAY IN EACH NOSTRIL TWICE DAILY FOR 30 DAYS; Duration: 90 PRN ActivePantoprazole Sodium 40 MG1 tablet Orally twice daily; Duration: 30 days ActiveAspirin 81 81 MG1 tablet Orally Once a dayActiveMagnesium 400 MG1 capsule Orally once daily5ActiveLovastatin 20 MGTAKE 1 TABLET BY MOUTH EVERY DAY AT NIGHT; Duration: 90ActiveLisinopril 10 MG1 tablet Orally Once a dayActive Clotrimazole-Betamethasone 1-0.05 %APPLY SMALL AMOUNT TO AFFECTED AREA EXTERNALLY TWICE A DAY *USE SPARINGLY*; Duration: 30 daysActiveCarvedilol 12.5 MG1 tablet with food Orally Twice a day; Duration: 90 daysActiveCalcium 600 MG1 tablet with meals Orally Twice a day4ActiveVitamin DActiveBumetanide 1 MG1 tablet Orally Once a day5ActiveSodium Polystyrene Sulfonate -as directed OrallyActiveLiothyronine Sodium 25 MCGTAKE 1 AND 1/2 TABLETS BY MOUTH ONCE A DAY ON AN EMPTY STOMACH; Duration: 90ActiveLevothyroxine Sodium 88 MCG TAKE 1 TABLET BY MOUTH EVERY DAY IN THE MORNING ON EMPTY STOMACH FOR 90 DAYS; Duration: 90ActivehydrALAZINE HCl 100 MG1 tablet with food Orally Twice a day; Duration: 90 daysActiveAlbuterol Sulfate HFA 108 (90 Base) MCG/ACT2 puffs as needed for SOB Inhalation every 4 hrs; Duration: 30 daysActive Immunizations Vaccine Route Administration Date Status Comme nts SARS-COV-2 (COVID 19 Pfizer 30mcg/0.3mL) Unknown 12/17/2020 Administered SARS-COV-2 (COVID 19 Pfizer 30mcg/0.3mL)Wgaempc3501/07/2021dministered Social History Tobacco Use: Social History Observation Description Date Details (start date - stop date) Former Smoker NA - NA Tobacco Control (Standard) Question Answer Notes Tobacco use: Former smoker How long has it been since you last smoked?Greater than 10 yearsAdditional Findings: Tobacco yet-vngtAk-hhpf heavy cigarette smoker (40+/day)AUDIT-C (Standard) Question Answer Notes Did you have a drink containing alcohol in the p ast year? No Vtcnwg2SjksphtuynlinmPdmdpdbg Problems Problem Type SNOMED Code ICD Code Onset Dates Problem Status W/U Status Risk Notes Problem Hyperkalemia (32194260) Hyperkalemia (E87 .5) ActiveconfirmedProblemAngina co-occurrent and due to coronary arteriosclerosis (disorder) (86846677481501245)Atherosclerotic heart disease of kenaitze coronary artery with other forms of angina pectoris (I25.118)ActiveconfirmedProblemSick sinus syndrome (62081510)Sick sinus syndrome (I49.5)ActiveconfirmedProblemNon- pressure chronic ulcer of other part of left lower leg with fat layer exposed (L97.822)ActiveconfirmedProblemChronic kidney disease stage 3 (disorder) (141575271)Chronic kidney disease, stage 3 (moderate) (N18.3)Activeconfirmed ProblemBradycardia (61648434)Bradycardia, unspecified (R00.1)Activeconfirmed ProblemMorbid obesity (473029774)Morbid obesity (E66.01)ActiveconfirmedProblem COPD - Chronic obstructive pulmonary disease (42977841)COPD (chronic obstructive pulmonary disease) (J44.9)ActiveconfirmedProblemHypothyroidism (89875465) Hypothyroidism (E03.9)ActiveconfirmedProblemCoronary artery disease (45674832) CAD (coronary artery disease) (I25.10)ActiveconfirmedProblemSpinal stenosis (72889176)Spinal stenosis (M48.00)ActiveconfirmedProblemChronic kidney disease (112063829)CKD (chronic kidney disease) (N18.9)ActiveconfirmedProblemCardiac pacemaker in situ (737733291)Pacemaker (Z95.0)ActiveconfirmedProblemDizziness (184433941)Dizziness (R42)ActiveconfirmedProblemTransient ischemic attack (413873641)TIA (transient ischemic attack) (G45.9)ActiveconfirmedProblemMigraine (76436711)Migraine (G43.909)ActiveconfirmedProblemCOPD - Chronic obstructive pulmonary disease (08206811)Chronic obstructive pulmonary disease, unspecified COPD type (J44.9)ActiveconfirmedProblemPain in right foot (923705579000303)Right foot pain (M79.671)ActiveconfirmedProblemSerous otitis media (20671315)Serous otitis media (H65.90)ActiveconfirmedProblemCellulitis (905740790)Cellulitis (L03.90)ActiveconfirmedProblemDiverticulitis (67021279)Diverticulitis (K57.92) ActiveconfirmedProblemHyperproteinemia (22855720)Hyperproteinemia (E88.09)Active confirmedProblemTubular adenoma (863315995)Tubular adenoma (D36.9)Active confirmedProblemLumbar spondylosis (125176698)Lumbar spondylosis (M47.816)Active confirmedProblemOcular migraine (05725425)Ocular migraine (G43.109)Active confirmedProblemMultiple pulmonary nodules (199111144)Multiple pulmonary nodules (R91.8)ActiveconfirmedProblemMidline cystocele (273472599)Bladder prolapse, female, acquired (N81.10)ActiveconfirmedProblemLumbosacral spondylosis (330001680)Lumbosacral spondylosis (M47.817)ActiveconfirmedProblemAnemia of chronic renal failure (89170039)Anemia due to stage 3 chronic kidney disease (D63.1)ActiveconfirmedProblemChronic venous hypertension with ulcer and inflammation involving left side (I87.332)ActiveconfirmedProblemEssential hypertension (96643742)BP (high blood pressure) (I10)ActiveconfirmedProblemPure hypercholesterolemia (026053013)Pure hypercholesterolemia, unspecified (E78.00) ActiveconfirmedProblemChronic venous hypertension with ulcer and inflammation, left (I87.332)ActiveconfirmedProblemSecondary pulmonary hypertension (49796374) Other secondary pulmonary hypertension (I27.29)ActiveconfirmedProblemPulmonary hypertension (98676093)Pulmonary hypertension (I27.20)ActiveconfirmedProblem Neurogenic claudication (735623501)Spinal stenosis, lumbar region with neurogenic claudication (M48.062)ActiveconfirmedProblemNon-pressure chronic ulcer of other part of left lower leg with muscle involvement without evidenceof necrosis (L97.825)ActiveconfirmedProblemMalnutrition of mild degree ([place]tero: 75% to less than 90% of standard weight) (79081936)Mild protein malnutrition (E44.1) ActiveconfirmedProblemCOVID-19 (859058886)COVID-19 (U07.1)ActiveconfirmedProblem Body mass index 40+ - severely obese (873816672)Body mass index [BMI] 45.0-49.9, adult (Z68.42)ActiveconfirmedProblemBody mass index 40+ - morbidly obese (333846223)Body mass index [BMI] 50.0-59.9, adult (Z68.43)ActiveconfirmedProblem Chronic kidney disease stage 3 (disorder) (594508939)Chronic kidney disease (CKD), stage III (moderate) (N18.30)ActiveconfirmedProblemVentricular tachycardia (disorder) (68894494)Other ventricular tachycardia (I47.29)Active confirmedProblemSupraventricular tachycardia (disorder) (5402274)Other supraventricular tachycardia (I47.19)Activeconfirmed Vital Signs Heart Rate 77 /min 09/26/2024 Jaikhquzbfj41.0 degrees Yvijbnqldh72/15/2025Respiratory Rate80 /min09/26/2024 Jrwnfzdc54 %09/26/2024lood pressure syjrclvxl04 mm Hg09/26/20242727Lgafrv18 in 09/26/2024lood pressure wosiiqsb291 mm Hg09/26/20242800Lyjxzw305.8 lbs09/26/2024MI 47.89 kg/m209/26/2024 Encounters Encounter Location Date Provider Diagnosis [facility] [address] [place] [address] 08/08/2024 Dontrell Hoy Cellulitis L03.90 [facility] [address] [place] [address] 03/10/2024 Dontrell Hoy Right foot pain M79.671 [facility] [address] [place] [address] 04/17/2024 Dontrell Hoy Serous otitis media H65.90 [facility] [address] [place] [address] 08/03/2024 Dontrell Hoy Migraine G43.909 [facility] [address] [place] [address] 08/09/2024 Dontrell Hoy Cellulitis L03.90 [facility] [address] [place] [address] 09/04/2024 Dontrell Hoy Cellulitis L03.90 [facility] [place] [address] [place] [address] 09/26/2024 Donal Salmeron Multiple pulmonary nodules R91.8 ; COPD (chronic obstructive pulmonary disease) J44.9 ; History of tobacco abuse Z87.891 ; Morbid obesity E66.01 and Body mass index [BMI] 45.0-49.9, adult Z68.42 [facility] [address] [place] [address] 01/25/2024 Dontrell Hoy Encounter for Medicare annual wellness exam Z00.00 [facility] [address] [place] [facility] [place] [address] 07/25/2024 Beatrizhan Campos [facility] [address] [place] [place] [address]/10/2025 Beatriz [facility] [facility] [place] [address]/oug HoySpinal stenosis M48.00 and Pulmonary hypertension I27.20[facility] [facility] [place] [address]/Doug HoyAcute bronchitis, unspecified organism J20.9[facility] [place] [facility] [address]/02/2024 [facility] [facility] [place] [address]/oug HoySpinal stenosis, lumbar region with neurogenic claudication M48.062BP[facility] [facility] [place] [address]/oug [facility] [facility] [place] [address]/oug HoyBladder prolapse, female, acquired N81.10BP[facility] [facility] [place] [address]/oug [facility] [facility] [place] [address]/Doug HoyCOPD (chronic obstructive pulmonary disease) J44.9 and Right foot pain M79.671[facility] [place] [facility] [place] [address]/12/2024Doug HoyEncounter for examination of ears and hearing without abnormal findings Z01.10BPikes [facility] [facility] [place] [address]/Doug HoyOther fatigue R53.83 ; Other abnormal glucose R73.09 ; Pure hypercholesterolemia, unspecified E78.00 and Encounter for screening for malignant neoplasm of colon Z12.11BPikes [facility] [facility] [place] [address]/Doug [facility] [facility] [place] [address]/10/2024Doug HoyHypothyroidism E03.9BPikes Peak [facility] [facility] [place] [address]/12/2024Doug Hoy Rectal bleeding K62.5BPikes Peak [facility] [facility] [place] [address]/12/2024Doug HoyHyperproteinemia E88.09BuMichel[place] [address] [facility] [place] [address]/04/2024Doug HoyBV[facility] [place] [facility] [place] [address]/ Dontrell HoyContusion of head S00.93XA and Contusion of leg, left S80.12XASpanish [facility]aks [facility] [facility] [place] [address]/05/2024 [facility] HoE[facility] [facility] [place] [address]/Doug [facility] [facility] [place] [address]/Doug HoyOpen wound of leg, left, subsequent encounter S81.802DSpanish [facility] [facility] [place] [address]/Doug HoyAdvanced Pain Management [address] [facility] [place] [address]/4Cassandra Laberdee Lumbosacral spondylosis M47.817 ; Spinal stenosis, lumbar region with neurogenic claudication M48.062 ; Vertebrogenic low back pain M54.51 and longterm (current) use of opiate analgesic Z79.891 Assessments Encounter Date Diagnosis (ICD Code) Assessment Notes Treatment Notes Treatment Clinical Notes Section Notes 09/26/2024 Multiple pulmonary nodules (ICD- 10 - R91.8) New 2-3cm RUL nodules on LDCT 02/23/2022 compared to 02/25/2021. These have resolved on CT 08/26/2022. Follow-up LDCT 09/06/2023 noted a new 4.6 mm right upper lobe nodule. Recurrent RUL nature is unclear. She was due for LDCT August 2024, but she was never contacted to schedule the testing. With the closing of [facility] this week, I explained to the patient that I would be unable toF/U immediately with the patient if she were to get the LDCT done at this time. I provided her withoptions: -Either I or her PCP can order the LDCT and refer her to a different scrap stripper hand if something very concerning shows -Wait several [...] but not limited to decreased appetite or unexplainedweight loss, excessive night sweats, fevers, or hemoptysis. 01/19/2024Lumbosacral spondylosis (ICD-10 - M47.817)01/25/2024Encounter for Medicare annual wellness exam (ICD-10 - Z00.00)Patient was seen today for a subsequent medicare wellness appointment. A total of 45 mintues was spent with the patient, completed was a SLUMS memory test, home safety screening, anxiety/depression screening and vision test. Patient scored well on all tests. Patient is up to date on vaccines, mammogram, bone densitytest and colonoscopy 01/31/2024Spinal stenosis (ICD-10 - M48.00)01/31/2024ulmonary hypertension (ICD-10 - I27.20)03/10/2024ight foot pain (ICD-10 - M79.671)04/17/2024Serous otitis media (ICD-10 - H65.90)mucinex, zyurtec and flonase - update in a week 5Acute bronchitis, unspecified organism (ICD-10 - J20.9)Rest and drink more liquids, especially water. You may use a humidifier or vaporizer to help keep the drainage moist. Fecs-xdu-hqnlfdx Nasal Saline may help the stuffy and runny nose. Use Ibuprofen and or Tylenol as needed for fever, chills, body aches or pain. Children 5 years old should not be given xoqt-mrw-tcayxyn cough and cold medications such as guaifenesin and dextromethorphan. If you're over age 5, you may try efsb-zey-sgevazt cold medications such as guaifenesin and dextromethorphan, or multi-symptom cold reliever such as Dayquil to help reduce the symptoms. Antibiotics have been prescribed. You should take these until completed and follow the directions. Antibiotics can sometimescause upset stomach, and in rare cases, serious [...] go to the emergency room or call [phone] (ICD-10 - G43.909)5Cellulitis (ICD-10 - L03.90)5Cellulitis (ICD-10 - L03.90)5Cellulitis (ICD-10 - L03.90)01/31/2024Spinal stenosis, lumbar region with neurogenic claudication (ICD-10 - M48.062) 02/21/2024ladder prolapse, female, acquired (ICD-10 - N81.10)04/05/2024OPD (chronic obstructive pulmonary disease) (ICD-10 - J44.9)04/24/2024Encounter for examination of ears and hearing without abnormal findings (ICD-10 - Z01.10) 05/31/2024Other fatigue (ICD-10 - R53.83)06/20/2024Hypothyroidism (ICD-10 - E03.9)06/22/2024Rectal bleeding (ICD-10 - K62.5)06/22/2024Hyperproteinemia (ICD- 10 - E88.09)08/11/2024ontusion of head (ICD-10 - S00.93XA)09/04/2024Open wound of leg, left, subsequent encounter (ICD-10 - S81.802D)5Contusion of leg, left (ICD-10 - S80.12XA)05/31/2024Other abnormal glucose (ICD-10 - R73.09) 04/05/2024Right foot pain (ICD-10 - M79.671)01/19/2024Spinal stenosis, lumbar region with neurogenic claudication (ICD-10 - M48.062) - Dr. Mensah patient - 1. Discontinue tramadol due to lack of benefit, could trial [place] versus Percocet 2. Continue home exercise program, [...] moderate degenerative changes of lumbar spine as described,similar to slightly progressed compared to prior. Findings most prominent L4-G5ciznw there is moderate severe right neural foraminal narrowing. - 07/29/23 Lumbar xray (per Dr. Mensah)- shows spacers at L3-4 and L4-5 are well seated, there is significant DDD from L2-S1. -01/30/22 Lumbar xray- Advancing multilevel osteoarthritis-10/10/21 Lumbar MRI- L1-2 normal, L2-3 moderate CCS, mild left NFN, moderate disc bulge, L3-4 moderate CCS, mild bl NFN, mild disc bulge, mild facet OA, L4-5 moderate CCS, right foraminal narrowing, mild left foraminal narrowing, moderate facet OA, L5- S1 moderate left and mild right foraminal narrowing, mo CCS, mild bulge and facet OA 01/19/2024Vertebrogenic low back pain (ICD-10 - M54.51)09/26/2024OPD (chronic obstructive pulmonary disease) (ICD-10 - J44.9) [...] over the nebulizer. Trigger avoidance (if able). 09/26/2024History of tobacco abuse (ICD-10 - Z87.891) 2ppd x 30 years, quit 2009. Last LDCT 09/06/2023 - RADS-2. This is her last year of eligibility; she was to have had the LDCT done August 2024, but it was not scheduled. As above, patient voiced she will wait several months to getit ordered at the new practice. 09/26/2024Morbid obesity (ICD-10 - E66.01) Morbid obesity is inducing a restrictive pulmonary physiology. Weight loss highly recommended. 01/19/2024Long term (current) use of opiate analgesic (ICD-10 - Z79.891) - 07/29/23 Drug screen negative 05/31/2024Pure hypercholesterolemia, unspecified (ICD-10 - E78.00)05/31/2024 Encounter for screening for malignant neoplasm of colon (ICD-10 - Z12.11) 09/26/2024ody mass index [BMI] 45.0-49.9, adult (ICD-10 - Z68.42)09/26/2024 Other Plan Of Treatment Pending Test Test [...] for Screening* 025 Next Appt Details Provider Name:Beatrizhan Campos , 01/23/2025 09:30:00 AM, [address] [place], [address], Insurance Providers Payer Name Payer Address Payer Phone Subscriber Number Group Number Insured Name Patient Relationship to Insured Coverage Start Date Coverage End Date [place] [address] [place] [address] [id number] Devan Sadler - patient is the [id number] 2013[employer] MEDICARE SUPPLEMENTPO [address] [address] [place] [id number], LouiseSelf - patient is the [id number] 2018 Medications Administered Medication Instructions Date of Administration Dosage Notes Ceftriaxone 1 gram g Medical (General) History Medical History History [...] Rt Myringotomy, t-tube placement, nasal endoscopy- Dr Mathews07/06/2024ataract- lens implantsRight Foot Surgery
--- OUTSIDE RECORDS SUMMARY | 2025-01-17 16:46 | XMS_ITS | Clinical Summary ---
Author Organization [facility] Address [address] [place] [address] Care Team Providers Care Loading Machine Adjuster Name Role Phone Jeremiah Arvizu MD Primary Care Provider [phone] Allergies Active AllergyReactionsCriticalityNoted DateCommentsFluticasoneHeadache 10/24/2024 Other Reaction(s): Unknown VnumaotluvjYnxush26/16/2022 Other Reaction(s): Other Yeast infection Medications MedicationSigDispense QuantityRefillsLast FilledStart DateEnd DateStatus albuterol HFA 90 mcg/act inhaler Inhale 2 puffs every 4 (four) hours if neededActive aspirin 81 MG EC tablet Take 81 mg by mouth in the morning.Active levothyroxine (Synthroid, Levoxyl) 100 MCG tablet Take 100 mcg by mouth in the morning. Take before meals.Active liothyronine (Cytomel) 25 MCG tablet Take 1.5 tablets by mouth in the morning.Active lovastatin (Mevacor) 20 MG tablet Take 20 mg by mouth in the morning.Active lisinopril 10 MG tablet Take 10 mg by mouth in the morning.4Active traMADol (Ultram) 50 MG tablet 4Active Azelastine HCl 137 MCG/SPRAY solution every 12 (twelve) hours5Active doxycycline (Monodox) 100 MG capsule 5Active Calcium Carb-Cholecalciferol 600-10 MG-MCG tablet TAKE TWO TABLETS BY MOUTH IN THE GIMOQPR68/11/2025Active carvedilol (Coreg) 12.5 MG tablet TAKE 1 TABLET BY MOUTH TWICE A DAY WITH FOOD FOR 90 DAYS5Active clotrimazole-betamethasone (Lotrisone) cream APPLY A SMALL AMOUNT TO AFFECTED AREA TWICE A DAY *USE SPARINGLY*11/02/2024 Active magnesium oxide (Mag-Ox) 400 MG tablet Take 1 tablet by mouth in the morning.06/27/2024tive Active Problems ProblemNoted DateDiagnosed DateBody mass index (BMI) 45.0-49.9, adult10/24/2024 Intrinsic sphincter deficiency (ISD)09/11/2024spirin long-term use05/09/2024AD (coronary artery disease)05/09/2024hronic obstructive pulmonary disease 05/09/2024Former xzcrst7605/09/2024History of colon zakmwh7105/09/2024History of tobacco abuse05/09/20240244Zyrbotcrlvrmzyfhpnvv08/25/6284Ipezddcfurqikq09/25/2025 Kidney idtuvc3005/09/2024Morbid pjwhroq5005/09/2024Multiple pulmonary nodules 05/09/2024Status post lumbar spine hlrbwayyn30/25/2025Stress incontinence, lvllqi2605/09/2024Stage 3a chronic kidney pgsybti3701/31/2024KD (chronic kidney disease) stage 4, GFR 15-29 ml/min01/26/20248378Rsjzcyqhrrgl12/13/2024Secondary dswxfprmpmkfdszjwoj61/13/2024Tachy-rhonda lglfloed16/24/2023Symptomatic uchhvrriomj10/20/2023Other secondary pulmonary asmndvgncgsh87/03/2023 Nonsustained paroxysmal ventricular anxgsvyqohl19/18/2023Obstructive sleep apnea fnncmion44/21/2023 Overview (05/05/2024): SOBIA=17.7 events/hour; Pranav SaO2=76%; Svocqq=271.0 lbs; BMI=52.7 kg/m2, Home Sleep Apnea Testing on09/25/2022 at [facility] [place] (ventricular tachycardia)04/29/2022 Overview (05/05/2024): Added automatically from request for surgery [id number] Clinical trial exam04/23/2022 Overview (05/05/2024): Added automatically from request for surgery [id number] A-fib04/21/2022Lower abdominal pain01/30/2022pinal stenosis of lumbar region with neurogenic raspvfiwgusr38/18/2022pondylosis of lumbosacral region without myelopathy or vxoafootewbdj54/18/2022Essential ypgdmgazkdog04/12/2020Chest pain 07/27/20165204Blveych05/15/2477Krfhc93/15/5935Xbqkain47/15/2017Lightheadedness 07/27/2016 Encounters DateTypeDepartmentCare WkdgYrotgzzmmvw67/23/2025 10:50 AM EDTOffice Visit [facility] [address] [facility] [address] [place] [id number] Lakshmi Viramontes MD Acute URI (Primary Dx); ETD (Eustachian tube dysfunction), right12/05/2024amboo flowsheet [facility] [address] [place] [address] [place] [address] Lakshmi Viramontes MD 12/05/2024Travelfrom Last 3 Months Immunizations ImmunizationAdministration DatesNext QetXXKY-PvS-2, Egeygcevzvr78/23/2021 Family History Medical HistoryRelationNameCommentsCancerFatherCancerMotherRelationNameStatus CommentsFatherDeceasedMotherDeceased Social History Tobacco UseTypesPacks/DayYears UsedDateSmoking Tobacco: NeverSmokeless Tobacco: Never Tobacco Cessation:Counseling Given: Not Answered Alcohol UseStandard Drinks/WeekCommentsNot Currently0 (1 standard drink = 0.6 oz pure alcohol)CommentsUnknownSex and Gender InformationValueDate Recorded Sex Assigned at BirthNot on fileLegal OimLdbzpa74/15/2023 6:41 PM EDTGender IdentityNot on fileSexual OrientationNot on file Last Filed Vital Signs Vital SignReadingTime TakenCommentsBlood Curuffme724/9412/05/2024 10:45 AM EDT Kzfwp917512/05/2024 10:45 AM EDTTemperature--Respiratory Rate--Oxygen Saturation-- Inhaled Oxygen Concentration--Wmdipq517 kg (275 lb)12/05/2024 10:45 AM EDTHeight 162.6 cm (5' 4 )12/05/2024 10:45 AM EDTBody Mass Index47. 10:45 AM EDT Plan of Treatment DateTypeDepartmentCare Team (Latest Contact Info)Sesxblxrbto56/30/2026 10:20 AM EDTOffice Visit [facility] [address] [facility] [address] [place] [address] Lakshmi Viramontes MD [address] [facility] [address] [place] [address] Health MaintenanceDue DateLast DoneCommentsCT Nlvduncmetqw1951FIT-DNA 1950FIT1950FOBT1950 0742Rrilagxwcmzfi61/08/3681Uymyqlnlm07/08/1991 Pneumococcal Vaccine: 65+ Years (1 of 1 - PCV)2001COVID-19 Vaccine ( season)/, 01/04/2021, 12/17/2020Influenza Vaccine (#1)11/13/20246768Fokpndqrnuy20, 02/09/2023, 07/06/2018Colorectal Cancer Owqyligcc06/28/2033 Medical Devices ImplantedTypeAreaManufacturerDevice IdentifierShelf Expiration DateModel / Serial / LotCardiac PacemakerCardiac PacemakerHeart Insurance * Guarantor: Vero Sadler TypeRelation to PatientDate of BirthPhone Billing AddressPersonal/WymaqjAodi1950 [address] [address] Care Teams Team MemberRelationshipSpecialtyStart DateEnd Date Jeremiah Arvizu MD [address] [place] [address] PCP - GeneralFamily Medicine08/02/24
--- OUTSIDE RECORDS SUMMARY | 2025-01-17 16:46 | XMS_ITS | Clinical Summary ---
Author Organization [facility] Address [address] [place] [address] Care Team Providers Care Playroom Attendant Name Role Phone Jeremiah Arvizu MD Primary Care Provider [phone] Social History Tobacco UseTypesPacks/DayYears UsedDateSmoking Tobacco: Never Assessed CommentsUnknownSex and Gender InformationValueDate RecordedSex Assigned at Not on fileLegal TtdSgsmgx02/14/2017 1:53 PM EDTGender IdentityFemaleSexual OrientationNot on file Plan of Treatment Health MaintenanceDue DateLast DoneCommentsDEXA SCAN BETRFBYULK1950 HEPATITIS C VIRUS GVADBGJLA48/08/4241LVGZYQF1951TDAP (ADULT)1970 CERVICAL CANCER SCREENING OALNZOSGPC01/08/1972LIPID EBOTBLCDW48/08/1991MAMMOGRAM SCREENING FYIJIABOZA51/08/1991COLORECTAL CANCER SCREENING TJNJCOULGV16/08/1996 PNEUMOCOCCAL VACCINE SERIES (1 of 1 - PCV)2001ZOSTER (SHINGLES) VACCINE (1 of 2)2001COVID-19 VACCINE ( - season)2024INFLUENZA VACCINE (#1)2024RSV VACCINE (1 - 1-dose 75+ series)2026HEP B VACCINEAged Out No longer eligible based on patient's age to complete this topic Insurance Care Teams Team MemberRelationshipSpecialtyStart DateEnd Date Jeremiah Arvizu MD PCP - GeneralFamily Medicine06/26/16
--- OUTSIDE RECORDS SUMMARY | 2025-01-17 16:46 | XMS_ITS | Clinical Summary ---
Author Organization [facility] Address [address] [place] [address] Phone Care Team Providers Care Case Checker Name Role Phone Unavailable Primary Care Provider Unavailabl e Social History Tobacco UseTypesPacks/DayYears UsedDateSmoking Tobacco: Never Assessed CommentsUnknownSex and Gender InformationValueDate RecordedSex Assigned at Not on fileLegal TbeSoaghb84/26/2022 7:26 PM ESTGender IdentityNot on fileSexual OrientationNot on file Plan of Treatment Not on file
--- OUTSIDE RECORDS SUMMARY | 2025-01-17 16:46 | XMS_ITS | Clinical Summary ---
Author Organization [facility] Address [address] [place] [address] Care Team Providers Care Accounting System Expert Name Role Phone Jeremiah Arvizu MD Primary Care Provider [phone] Allergies Active AllergyReactionsCriticalityNoted DateCommentsFluticasone Propionate Ofvdeoz2710/24/20249294ZoanrnnftmfIixwmQtjbkf50/16/2022 Yeast infection Medications MedicationSigDispense QuantityRefillsLast FilledStart DateEnd DateStatus hydrALAZINE (Apresoline) 100 mg tablet Take 100 mg by mouth in the morning, at noon, and at bedtime.Active levothyroxine (Synthroid, Levoxyl) 100 mcg tablet Take 100 mcg by mouth before breakfast.Active liothyronine (Cytomel) 25 mcg tablet Take 1.5 tablets by mouth in the morning.Active lovastatin (Mevacor) 20 mg tablet Take 20 mg by mouth in the morning.Active aspirin 81 mg EC tablet Take 81 mg by mouth in the morning.Active albuterol 90 mcg/actuation inhaler Inhale 2 puffs every 4 (four) hours if needed for shortness of breath.Active carvedilol (Coreg) 12.5 mg tablet Indications:Essential hypertensionTake 1 tablet (12.5 mg) by mouth in the morning and at bedtime. 60 tablet 02/18/2022ctive bumetanide (Bumex) 1 mg tablet Indications:Resistant hypertension,Benign hypertensive heart and CKD, stage 3 (GFR 30-59), w CHF (CMS/HCC)Take 1 tablet (1 mg) by mouth in the morning. 90 tablet ctive Additional Information Patient taking differently:1 mg oral Daily,Patient only takes when she is home for the day., Reported on 10/24/2024 revefenacin (Yupelri) 175 mcg/3 mL nebulizer solution Take 175 mcg by nebulization if needed each day.Active methylcellulose, laxative, (CitruceL Sugar Free) powder Indications:Loose stoolsMix 1 tablespoon in 8 oz (240 mL) of cold water. Take by mouth once daily. Increase frequency as needed up to 3 times daily. Start with a low dose and slowly increase to prevent worse bloating. 479 g ctive Additional Information Patient not taking.Reported on 10/24/2024 pantoprazole (ProtoNix) 40 mg EC tablet Indications:DuodenitisTAKE 1 TABLET BY MOUTH ONCE EVERYDAY BEFORE BREAKFAST *DO NOT CRUSH/CHEW/SPLIT* 90 tablet ctive traMADol (Ultram) 50 mg tablet TAKE 1 TABLET BY MOUTH TWICE A DAY NEEDED FOR 30 DAYS08/09/2023ctive lisinopril 10 mg tablet Indications:Essential hypertensionTAKE 1 TABLET BY MOUTH EVERY DAY IN THE MORNING 90 tablet ctive calcium carbonate 600 mg calcium (1,500 mg) tablet Take 600 mg by mouth in the morning.07/29/2023ctive magnesium oxide (Mag-Ox) 400 mg (241.3 mg magnesium) tablet Take 1 tablet by mouth in the morning.5Active Active Problems ProblemNoted DateDiagnosed DateBody mass index (BMI) 45.0-49.9, adult10/24/2024 Intrinsic sphincter deficiency (ISD)09/11/2024spirin long-term use05/09/2024AD (coronary artery disease)05/09/2024hronic obstructive pulmonary disease 05/09/2024Former eebvfw2905/09/2024History of colon iusrzy3105/09/2024History of tobacco abuse05/09/20241116Tyegjgecvuctvqyppubi75/25/8485Wlirkfcnmussno05/25/2025 Kidney czfdfb1005/09/2024Morbid peschul6305/09/2024Multiple pulmonary nodules 05/09/2024Status post lumbar spine yjjxskhsj34/25/2025Stress incontinence, qfdike3105/09/2024Stage 3a chronic kidney jwqkwxs6401/31/20247063Vchvptlxcant87/13/2024 CKD (chronic kidney disease) stage 4, GFR 15-29 ml/min01/26/2024Secondary bczbxilypukmtgcrqwi73/13/2024Tachy-rhonda ftnwdkku27/24/2023 Assessment & Plan (01/05/2023 6:58 AM EDT): D/W Dr Posada - EP and he agrees that pt would benefit from perm pacemaker implantation, will send orders and staff to update pt. I had already d/w pt regarding possible need for PPM and risks vs benefits- D/W pt risks including but not limited to: Bleeding/bruising, infection, blood clot or damageto a blood vessel, abnormal heart rhythm, chest pain, heart attack, sudden damage to vessel and/or heart, kidney damage from contrast, allergic reaction to medications/ or contrast, stroke, . Symptomatic amautgvsbws49/20/2023 Assessment & Plan (01/01/2023 5:19 PM EDT): [...] voiced understanding and agreement Other secondary pulmonary suxngfttvvko87OSA on CPAP12/15/2022 Nonsustained paroxysmal ventricular zjmpmdtzyyp00/18/2023 Assessment & Plan (01/01/2023 5:22 PM EDT): Continue coreg 6.25 mg bid Obstructive sleep apnea Overview (10/02/2022): SOBIA=17.7 events/hour; Pranav SaO2=76%; Gjcrvr=540.0 lbs; BMI=52.7 kg/m2, Home Sleep Apnea Testing on09/25/2022 at [facility] [place] (ventricular tachycardia)04/29/2022 Overview (04/29/2022): Added automatically from request for surgery [id number] Clinical trial exam04/23/2022 Overview (04/23/2022): Added automatically from request for surgery [id number] A-fib04/21/2022Spinal stenosis of lumbar region with neurogenic claudication 01/30/2022Lower abdominal pain01/30/2022pondylosis of lumbosacral region without myelopathy or cglwtevxnqsjz82/18/2022Essential tcsjdcohcrew43/12/2020 Chest pain07/27/20163691Aqdcjea51/15/4477Swywa10/15/0148Pyvgodz33/15/2017 Uvhrzhjhmxheovt33/15/2017 Encounters DateTypeDepartmentCare QbpnSolezqjyzrs36/29/2025 12:10 PM EDTAncillary Procedure [facility] [address] [place] [phone] Adjustment and management of cardiac /29/2025Orders Only [facility] [address] [place] [phone] Irvin Posada MD 11/10/2024Orders Only [facility] [address] [place] [address] Irvin Posada MD 11/09/2024 12:40 PM EDTAncillary Procedure [facility] [address] [place] [address] Adjustment and management of cardiac mcwcjzteg76/12/2025 11:15 AM EDTOffice Visit [facility] [address] [place] [address] Irvin Posada MD Cardiac pacemaker in situ (Primary Dx)10/24/2024 10:30 AM EDTAncillary Procedure [facility] [address] [place] [address] Encounter for implantable defibrillator reprogramming or check10/24/2024Orders Only [facility] [address] [facility] [place] [address] Nevaeh Curiel MA Bilateral carotid artery stenosis (Primary Dx)from Last 3 Months Immunizations ImmunizationAdministration DatesNext DuePfizer SARS-CoV-2 Apcudnlmrux35/23/2021, 12/17/2020Unspecified Sars-Cov-2 Nrxuqtxaquu99/23/2021,12/17/2020 Family History Medical HistoryRelationNameCommentsmalig neoplastic diseaseDaughter HyperlipidemiaFatherHypertensionFathermalig neoplastic diseaseFatherCoronary artery diseaseMothercerebrovascular accidentMothermalig neoplastic diseaseMother renal diseaseMotherRelationNameStatusCommentsDaughterFatherDeceasedMother Social History Tobacco UseTypesPacks/DayYears UsedDateSmoking Tobacco: FormerCigarettesQuit: 2008Passive Smoke Exposure: NeverSmokeless Tobacco: Never Tobacco Cessation:Counseling Given: Not Answered Alcohol UseStandard Drinks/WeekCommentsYes0 (1 standard drink = 0.6 oz pure alcohol)rarelyHumiliation, Afraid, Rape, and Kick questionnaireAnswerDate RecordedWithin the last year, have you been afraid of your partner or ex-partner?No07/09/2023Emotionally AbusedNot on file07/09/2023hysically Abused Not on file07/09/2023Sexually AbusedNot on file07/09/2023Overall Financial Resource Strain (CARDIA)AnswerDate RecordedHow hard is it for you to pay for the very basics like food, housing, medical care, and heating?Not hard at all 3PHQ-2AnswerDate RecordedPatient Health Questionnaire-2 Score0 07/20/2023UT Safety & EnvironmentAnswerDate RecordedWithin the last year, have you been afraid of your partner or ex-partner?07/09/2023Within the last year, have you been humiliated or emotionally abused in other ways by your partner or ex-partner?No07/09/2023Within the last year, have you been kicked, hit, slapped, or otherwise physically hurt by your partner or ex-partner?07/09/2023Within the last year, have you been raped or forced to have any kind of sexual activity by your partner or ex-partner?No07/09/2023In the past year have you been physically or sexually abused?Unrecognized value07/09/2023TransportationAnswer Date RecordedIn the past 12 months, has lack of transportation kept you from medical appointments or from getting medications?No01/05/2023Lack of Transportation (Non-Medical)Not on file01/05/2023Housing Stability Vital Sign AnswerDate RecordedUnable to Pay for Housing in the Last YearNot on file 01/05/2023Number of Places Lived in the Last YearNot on file01/05/2023In the last 12 months, was there a time when you did not have a steady place to sleep or slept in ashelter (including now)?No01/05/2023Hunger Vital SignAnswerDate RecordedWithin the past 12 months, you worried that your food would run out before you got the money to buymore.Never true01/05/2023Ran Out of Food in the Last YearNot on file01/05/2023CommentsNoSex and Gender InformationValue Date RecordedSex Assigned at MequeOykevw37/06/2025 4:22 PM EDTLegal SexFemale 09/10/2021 9:47 PM EDTGender ZpjxzvyfIyncra32/06/2025 4:22 PM EDTSexual OrientationHeterosexual or Kucxinvn12/06/2025 4:22 PM EDT Last Filed Vital Signs Vital SignReadingTime TakenCommentsBlood Ogvrrqnf212/9008 10:57 AM EDT Wrfrc650510/24/2024 10:57 AM IJQVlmnafstnmq71 ??C (96.8 ??F)02/09/2023 2:25 PM EST Respiratory Xcnw403908/25/2024 12:45 PM EDTOxygen Tjjpqyzfpe42%10/24/2024 10:57 AM EDTInhaled Oxygen Concentration--Jtoxqk822 kg (282 lb)10/24/2024 10:57 AM EDT Hbxvey881.6 cm (5' 4 )10/24/2024 10:57 AM EDTBody Mass Index48.41010/24/2024 10:57 AM EDT Plan of Treatment Health MaintenanceDue DateLast DoneCommentsCT Frftsyghbujk1951FIT-DNA 1950FIT1950FOBT1950Medicare Annual Wellness (AWV)1950 Irszkvsfuncnd1951epression Zsutjubra25/08/1963Pneumococcal Vaccine: 50+ Years (1 of 2 - PCV)1970Adult Pjoriyd2902/19/19735933Cuonvnkeh08/08/1991Zoster Vaccines (1 of 2)2001Fall Risk Uzpuhkvpt41/08/2016COVID-19 Vaccine ( season), 01/04/2021, 12/17/2020, Additional history existsInfluenza Vaccine (#1)7389Kxuvobjpdvh95/28/17765204/11/2022, 02/09/2023, 07/06/2018Colorectal Cancer Fyuuhqdgk63/28/2033HIB VaccinesAged Out No longer eligible based on patient's age to complete this topicHPV VaccinesAged OutNo longer eligible based on patient's age to complete this topicIPV Vaccines Aged OutNo longer eligible based on patient's age to complete this topic Meningococcal B VaccineAged OutNo longer eligible based on patient's age to complete this topicMeningococcal VaccineAged OutNo longer eligible based on patient's age to complete this topicRotavirus VaccinesAged OutNo longer eligible based on patient's age to complete this topic Medical Devices ImplantedTypeAreaManufacturerDevice IdentifierShelf Expiration DateModel / Serial / PitaNito,S 60, - [id number] - [id number] Implanted:Qty: 1 on 01/12/2023 [id number] / [id number] / EdwinaVivianamargaritoS 53, - [id number] - [id number] Implanted:Qty: 1 on 01/12/2023 by [id number] / [id number] / Pacer [address]-T - [id number] - [id number] Implanted:Qty: 1 on 01/12/2023 by [facility] Center[id number] / [id number] / Superion Ids - 10mm Implanted:Qty: 1 on 11/30/2022 by [facility]: Spine LumbarBoston [id number]/02/2027 101-9810 / / [id number] Ids - 12mm Implanted:Qty: 1 on 11/30/2022 by [facility]: Spine LumbarBoston [id number]/ 101-9812 / / [id number] Procedures Procedure NamePriorityDate/TimeAssociated DiagnosisCommentsCARDIAC DEVICE CHECK CHECK - WTZKEXAvayiyg95/02/2025 1:40 PM EDT Adjustment and management of cardiac pacemaker CARDIAC DEVICE CHECK CHECK - ARTHHIHgwaqde55/02/2025 12:46 PM EDT Adjustment and management of cardiac pacemaker CARDIAC DEVICE CHECK - REMOTE ALERT - MCOHOIGUXSnjrbcz81/29/2025 12:00 AM EDT CARDIAC DEVICE CHECK - REMOTE - DQTWHFJFYPztytwq36/29/2025 12:00 AM EDTCARDIAC DEVICE CHECK - IN CLINIC - PACEMAKER DUAL CHAMBER W/ DLAWPlmlosk14/13/2025 10:40 AM EDT Encounter for implantable defibrillator reprogramming or check DIAGNOSTIC CKNEQIPSLLNHlllutt48/28/2023 2:19 PM EST Abdominal pain, unspecified abdominal location Change in bowel habits Chronic diarrhea Family history of colon cancer in father Family history of rectal cancer Family history of Crohn's disease from Last 3 Months or Most Recently Relevant to Health Maintenance Results * CARDIAC DEVICE CHECK - REMOTE ALERT - PACEMAKER (11/14/2024 1:40 PM EDT) Only the most recent of2 resultswithin the time period is included. Specimen (Source)Anatomical Location / LateralityCollection Method / Volume Collection TimeReceived Time Narrative Authorizing ProviderResult TypeResult StatusBrock[facility] Center IMPLANTABLE CARDIAC DEVICE PROCEDURESFinal ResultPerforming OrganizationAddressCity/State/ZIP Code Phone Number CPACS * Cardiac device check - Remote alert pacemaker (11/10/2024 12:00 AM EDT) Anatomical RegionLateralityModalityOtherSpecimen (Source)Anatomical Location / LateralityCollection Method / VolumeCollection TimeReceived Time11/10/2024 Narrative Authorizing ProviderResult TypeResult StatusBrockton [facility] Medical Center IMPLANTABLE CARDIAC DEVICE PROCEDURESFinal Result * Cardiac device check - Remote pacemaker (11/10/2024 12:00 AM EDT)Anatomical RegionLateralityModalityOtherSpecimen (Source)Anatomical Location / Laterality Collection Method / VolumeCollection TimeReceived Time11/10/2024 Narrative Authorizing ProviderResult TypeResult StatusBrockton [facility] Medical Center IMPLANTABLE CARDIAC DEVICE PROCEDURESFinal Result * CARDIAC DEVICE CHECK - IN CLINIC - PACEMAKER DUAL CHAMBER W/ PROG (10/25/2024 10:40 AM EDT)ComponentValueRef RangeTest MethodAnalysis TimePerformed At Pathologist SignatureBSA2.4m2GE PACS CARDIOAnatomical RegionLateralityModality OtherSpecimen (Source)Anatomical Location / LateralityCollection Method / VolumeCollection TimeReceived Time Narrative 11/15/2024 11:40 PM EDT By using the attestations below, the signing clinician agrees that I have read and verify that the documentation has been personally reviewed by me and ensure that the documentation accurately reflects the encounter. Routine EP device follow up as per schedule. Please see attached note Authorizing ProviderResult TypeResult [facility] IMPLANTABLE CARDIAC DEVICE PROCEDURESFinal Result * Diagnostic Colonoscopy (02/09/2023 2:19 PM EST)Anatomical RegionLaterality ModalityEndoscopySpecimen (Source)Anatomical Location / LateralityCollection Method / VolumeCollection TimeReceived Time Narrative 02/09/2023 8:54 PM EST Table formatting from the original result was not included. Colonoscopy Procedure Note Procedure: ??Colonoscopy with biopsies Indications: ??72 y.o F presenting with abdominal pain, bloating, and diarrhea. She reports a family history of colon cancer in her father, and Crohn's disease in her mother. Sedation: ??RADAMES Attending Physician: ??Dr. Dario Calderon Marketing Communications Associate: ??Rachel Prado, Fellow Procedure Details Informed consent was obtained for the procedure, including sedation. ?? Risks of perforation, hemorrhage, adverse drug reaction and aspiration were discussed. The patient was placed in the left lateral decubitus position. ??The patient was monitored continuously with ECG tracing, pulse oximetry, blood pressure monitoring, and direct observations. ?? A rectal examination was performed. ??The colonoscope was inserted into the rectum and advanced under direct vision to the terminal ileum. ??A careful inspection was made as the colonoscope was withdrawn, including a retroflexed view of the rectum; findings and interventions are described below. ??Appropriate photodocumentation was obtained. Findings: Poor colon prep. [...] small external hemorrhoids. Quality of colonic prep: ??poor Withdrawal time: ??14 minutes Specimens: Order Name Source Comment Collection Info Order Time HISTOLOGY - TISSUE EXAM Small Intestine, Duodenum ??Collected By: Rachel Prado MD 02/09/2023 ??1:46 PM ??Release to Patient ?? Immediately ? Complications: ??None Estimated blood loss: ??None ? Disposition: ??Home ? Condition: stable Impression: ?? Poor colon prep. Normal terminal ileum, no evidence of ileitis. Sigmoid diverticulosis. External hemorrhoids and skin tags. Recommendations: Follow up random colon biopsies to rule out microscopic colitis. Patient will require repeat colonoscopy for colon cancer screening, with two day prep, in one year. Attending Attestation: I was present and scrubbed for the entire procedure. Authorizing ProviderResult TypeResult StatusJacqueline E Malenfant CNPENDOSCOPY PROCEDURE ORDERABLESFinal Result from Last 3 Months or Most Recently Relevant to Health Maintenance Insurance Care Teams Team MemberRelationshipSpecialtyStart DateEnd Jeremiah Arvizu MD [address] [facility] [address] [address] PCP - Nhnfkiz63/14/22
--- OUTSIDE RECORDS SUMMARY | 2025-01-17 16:48 | XMS_ITS | CCD ---
Author Organization 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 Name Role Phone PHYSICIAN, DEFAULT Unavailable Unavailable PHYSICIAN, DEFAULT Unavailable Unavailable DEBBIE BHATIA Unavailable Unavailable HOY ., DR LEWIS Consulting Unavailable HOY ., DR LEWIS Attending Unavailable HOY ., DR LEWIS Primary Care Unavailable HOY ., DR LEWIS Admitting Unavailable OTIS, DR RAJI Odonnell Consulting Unavailable HOY ., [...] Unavailable HOY ., DR LEWIS Admitting Unavailable OTIS, DR RAJI Odonnell Consulting Unavailable Debbie Bhatia Primary Care Physician Debbie Bhatia MD Primary Care Provider [phone] NKANSCLAUDIO-AMDENICE, ROSETTA Attending Unavail able NKANSCLAUDIO-AMDENICE, ROSETTA Attending Unavail able NKANSCLAUDIO-AMDENICE, ROSETTA Referring Unavail able NKANSAH-AMANKRA, ROSETTA Admitting Unavail able NKANSCLAUDIO-KEVANRA, ROSETTA Attending Unavail able Debbie Bhatia Referring Unavailable NKMILO-KEVANRA, ROSETTA Attending Unavail able Debbie Bhatia MD Primary Care Provider [phone] Kal Molina MD Attending Provider Debbie Bhatia MD Primary Care Provider [phone] MD ROSETTA MENDEZ Admitting Unav ailable MD ROSETTA MENDEZ Attending Unav ailable MD ROSETTA MENDEZ Referring Unav ailable MD ROSETTA MENDEZ Attending Unav ailable MD ROSETTA MENDEZ Attending Unav ailable MD ROSETTA MENDEZ Attending Unav ailMD ROSETTA Bryan Referring Unav ailable MD ROSETTA MENDEZ Admitting Unav ailable Debbie Bhatia MD Primary Care Provider [phone] Lizette Schaffer MD Attending Provider Asaad MD, Imad Other Provider Sarbjit , Lizette Attending Provider Debbie Bhatia Primary Care Unavailable Asaad, Imad Admitting Unavailable Asaad, Imad Attending Unavailable Debbie Bhatia Primary Care Unavailable Sarbjit, Lizette Admitting Unavailable Sarbjit, Lizette Attending Unavailable Giedraitis , Andrius Vytautas Attending Unavailable Giedraitis MD, Andrius Vytautas Attending Unavailable Giedraitis MD, Andrius Vytautas Attending Unavailable Giedraitis , Andrius Vytautas Attending Unavailable Giedraitis , Andrius Vytautas Attending Unavailable SUNDAR, JOSEY Referring Unavailable SUNDAR, JOSEY Referring Unavailable SUNDAR, JOSEY Referring Unavailable SUNDAR, JOSEY Referring Unavailable HOYDEBBIE Referring Unavailable SHEFALI, RYAN López Referring Unavailable SHEFALI, RYAN López Referring Unavailable SUNDAR, JOSEY Referring Unavailable SUNDAR, JOSEY Attending Unavailable SUNDAR, JOSEY Attending Unavailable SUNDAR, JOSEY Referring Unavailable ELTAHAWY, EHAB Attending Unavailable SUNDAR, JOSEY Referring Unavailable TIMMIS, JOHN H Attending Unavailable DEBBIE BHATIA Referring Unavailable TIMMIS, JOHN H Attending Unavailable TIMMIS, JOHN H Attending Unavailable TIMMIS, JOHN H Attending Unavailable TIMMIS, JOHN H Attending Unavailable Allergies Allergy ClassificationReported Allergen(s)Allergy TypeDate of OnsetReaction(s) Facility (9 sources)Penicillins; Translations: [PENICILLINS]Drug allergy (disorder) 54-06-1429SQH, Unknown ReactionThe [facility] RepositoryComment on above:yeast infection (6 sources)Adhesive Tape; Translations: [adhesive tape]Allergy to substance 44-79-0782aalx [facility] (7 sources)Adhesive bandage; Translations: [Adhesive Bandage]Drug allergyWeal (disorder)[facility] [place] (17 sources)PenicillinsDrug Eytzjzq40-00-0908[facility] (4 sources)fluticasone; Translations: [fluticasone]Drug Uflbhyc15-27-4151 [facility] (1 source)PenicillinsDrug allergy (disorder)43-97-9337[facility]cf[facility] (1 source)fluticasone; Translations: [FLUTICASONE PROPIONATE]Drug Allergy 34-80-8111IlrjrhrpdkV[facility]ans [facility] Repository Medications Current Medications MedicationDrug Class(es)DatesSig (Normalized)Sig (Original)[id number] 200 actuat albuterol 0.09 mg/actuat metered dose inhaler (20 sources)beta2-Adrenergic AgonistStart: 51-89-5926yygl 2.5 mg by inhalation every four to six hours as needed for wheezingAlbuterol Sulfate 2.5 mg /3 mL (0.083 %) solution for nebulization Active 2.5 MG INHALATION EVERY 4-6 HOURS as needed for shortness of breath or wheezing January 06, 2024 12:00am Complies with drugtherapyStart: 42-28-3765rrsy 1 puff(s) by inhalation four times daily as needed for wheezingAlbuterol Sulfate 90 mcg/actuation HFA aerosol inhaler Active 2 PUFF INHALATION Four times daily asneeded for shortness of breath or wheezing January 06, 2024 12:00am Complies with drug therapyStart: 11-25-2022 take 2.5 mg by inhalation four times dailyalbuterol 0.083% Inh Viviana 3 mL 2.5 mg, 3 mL, NEB, QID Shortness of breath or wheezing, Refill(s) 0 Start Date: 11/25/22 Status: Ordered Repeat number: 1Start: 18-93-3834voup 2 puff(s) by inhalation every four hoursAlbuterol (Eqv-ProAir HFA) 2 puff(s), Inhalation, q4hr Shortness of breath or wheezing, Refill(s) 0Start Date: 11/25/22 Status: Ordered Repeat number: 1Start: 42-05-4184wcia 2 puff(s) by inhalation every four hoursAlbuterol (Eqv-ProAir HFA) 2 puff(s), Inhalation, q4hr Shortness of breath or wheezing, Refill(s) 0Start Date: 11/25/22 Status: Orderedtake 2 puff(s) by inhalation every four hoursalbuterol HFA 90 mcg/act inhaler Inhale 2 puffs every 4 (four) hours if needed Activeaspirin 81 mg delayed release oral tablet (20 sources)Platelet Aggregation Inhibitor, Nonsteroidal Anti-inflammatory Drug Start: 71-70-0114Wtbbbpp (Adult Low Dose Aspirin) 81 mg tablet,delayed release (DR/EC) Active 81 MG PO Daily 2023 12:00am Complies with drug therapyazelastine hydrochloride 0.137 mg/actuat metered dose nasal spray (13 sources)Histamine-1 Receptor AntagonistStart: 69-65-0965Rezzfpzlsb HCl 137 MCG/SPRAY solution every 12 (twelve) hours 06/08/2024 Activeazithromycin 250 mg oral tablet (2 sources)Macrolide AntimicrobialStart: 12-05-2024 End: 45-47-5288pwxnevygzhta (Zithromax Z-Maicol) 250 MG tablet Indications: Acute URI Take 2 tabs (500 mg) by mouth today, then 1 tab (250 mg) daily for 4 days. 6 tablet 12/05/2024 12/10/2024 Activebetamethasone 0.5 mg/ml / clotrimazole 10 mg/ml topical cream (12 sources)Azole Antifungal, CorticosteroidStart: 28-38-8878zptfoopjploj- betamethasone (Lotrisone) cream APPLY A SMALL AMOUNT TO AFFECTED AREA TWICE A DAY *USESPARINGLY* 11/02/2024 ActiveStart: 42-12-4273cokzvtpzfclig-clotrimazole Top 0.05%-1% Crm 15 gram Refill(s) 0 Start Date: 03/31/24 Status: OrderedRepeat number: 1Start: 16-54-1038Rqzuscpqfngx-Betamethasone 1-0.05 % cream Active 1 APPLIC TOPICAL Daily as needed for rash January 06, 2024 12:00am Complies with drug therapyStart: 23-21-1616Soakipatnjcw-Betamethasone 1-0.05 % cream Active APPLIC TOPICAL January 06, 2024 12:00ambumetanide 1 mg oral tablet (10 sources)Loop DiureticStart: 40-10-4353qcvq 1 tablet by mouth once daily Bumetanide 1 mg tablet Active 1 MG PO Daily January 06, 2024 12:00am Complies with drug therapycalcium carbonate 600 mg / cholecalciferol 0.01 mg oral tablet (20 sources)Vitamin DStart: 49-19-7899noik 2 tablets by mouth in the morning Calcium Carb-Cholecalciferol 600-10 MG-MCG tablet TAKE TWO TABLETS BY MOUTH IN THE MORNING 10/23/2024 ActiveStart: 01-06-2024 End: 19-26-1553nrmb 2 tablets by mouth once daily in the morningCalcium Carbonate-Vitamin D3 600 mg-10 mcg (400 unit) tablet Discontinued 2 TAB PO Every morning 180 June 27, 2024 11:57am June 27, 2024 12:27pmStart: 07-20-2023 End: 65-27-2084zqrx 2 tablets by mouth in the morningCalcium Carb- Cholecalciferol 600-10 MG-MCG tablet Take 2 tablets by mouth in the morning. 07/20/2023 07/19/2024 Activecarvedilol 12.5 mg oral tablet (12 sources)alpha-Adrenergic [place], beta-Adrenergic BlockerStart: 10-07-2024 take 1 tablet by mouth twice daily at mealtimecarvedilol (Coreg) 12.5 MG tablet TAKE 1 TABLET BY MOUTH TWICE A DAY WITH FOOD FOR 90 DAYS 10/07/2024 ActiveStart: 14-65-4009tgwo 12.5 mg by mouth twice dailyCarvedilol Active 12.5 MG PO Twice daily January 06, 2024 12:00amStart: 56-39-9549Ggafqkykau 25 mg tablet Active 12.5 MG PO Twice daily January 06, 2024 12:00am Complies with drugtherapy cephalexin 500 mg oral capsule (10 sources)Cephalosporin AntibacterialStart: 07-13-2024 End: 70-27-8252gcbu 1 capsule by mouth every twelve hourscephalexin (Keflex) 500 MG capsule TAKE 1 CAPSULE BY MOUTH EVERY 12 HOURS FOR 5 DAYS 07/13/202411/14 Discontinued (Therapy completed)ciprofloxacin 3 mg/ml / dexamethasone 1 mg/ml otic suspension (3 sources)Corticosteroid, Quinolone AntimicrobialStart: 08-09-2024 End: 51-38-8299fditjaoebfuni-dexAMETHasone (CiproDEX) otic suspension Indications: ETD (Eustachian tube dysfunction), right Administer 4 drops into the right ear in the morning and 4 drops before bedtime. Do all this for 7 days. 7.5 mL 08/09/2024 08/16/2024 Activediclofenac potassium 50 mg oral tablet (2 sources)Nonsteroidal Anti-inflammatory DrugStart: 09-15-3057exnf 1 tablet by mouth once dailydiclofenac potassium 50 mg oral tablet 50 mg = 1 tab(s), Oral, Daily, Refills(s) 0 Start Date: 11/25/22 Status: Ordereddoxycycline monohydrate 100 mg oral capsule (9 sources)Tetracycline-class DrugStart: 69-12-8135pcjbtniusjo (Monodox) 100 MG capsule 08/08/2024 Activefluticasone propionate 0.05 mg/actuat metered dose nasal spray (6 sources)CorticosteroidStart: 05-09-2024 End: 75-49-0169rrxvcmgspqz (Flonase) 50 MCG/ACT nasal spray Indications: OME (otitis media with effusion), right 2sprays on the right twice daily. Shake gently. Before first use, prime pump. After use, clean tip and replace cap. 48 g 3 05/09/2024 06/20/2024 Discontinued (Side effects)hydrALAZINE hydrochloride 100 mg oral tablet (14 sources)Arteriolar VasodilatorStart: 93-48-2984iwfv 1 tablet by mouth twice dailyHydralazine 100 mg tablet Active 100 MG PO Twice daily October 05, 2024 11:09am Complies with drug therapyStart: 11-25-2022 End: 19-12-8117oumw 1 tablet by mouth three times dailyHydralazine 100 mg tablet Discontinued 100 MG PO Three times daily January 06, 2024 12:00am October 05, 2024 11:10amisosorbide dinitrate 10 mg oral tablet (4 sources)Nitrate VasodilatorStart: 46-58-6544zwrg 1 tablet by mouth once daily isosorbide dinitrate 20 mg Tab 20 mg = 1 tab(s), Oral, Daily, Refills(s) 0 Start Date: 11/25/22 Status: OrderedStart: 85-41-8683cpry 1 tablet by mouth once daily isosorbide dinitrate 10 mg Tab 10 mg = 1 tab(s), Oral, Daily, Refills(s) 0 Start Date: 11/25/22 Status: Orderedlevothyroxine sodium 0.088 mg oral tablet (20 sources)l-ThyroxineStart: 50-71-1815fxbv 1 tablet by mouth onceLevothyroxine 88 mcg tablet Active 88 MCG PO Once June 27, 2024 12:00am Complies with drug therapyStart: 67-49-4353ycqu 1 capsule by mouth once dailylevothyroxine 88 mcg (0.088 mg) oral capsule 88 mcg = 1 cap(s), Oral, Daily, Refills(s) 0, Thyroid S tart Date: 06/26/24 Status: Ordered Repeat number: 1Start: 01-06-2024 End: 66-02-8687dndp 1 capsule by mouth once dailyLevothyroxine 100 mcg capsule Discontinued 100 MCG PO Daily January 06, 2024 12:00am June 27, 2024 11:17amStart: 86-56-9644xipc 1 tablet by mouth once dailylevothyroxine 100 mcg (0.1 mg) Tab 100 mcg = 1 tab(s), Oral, Daily, Refills(s) 0 Start Date: 11/25/22 Status: Orderedtake 1 tablet by mouth before mealtimelevothyroxine (Synthroid, Levoxyl) 100 MCG tablet Take 100 mcg by mouth in the morning. Take beforemeals. Activeliothyronine sodium 0.025 mg oral tablet (20 sources)l-TriiodothyronineStart: 81-63-7273ajic 1 tablet by mouth once daily Liothyronine 25 mcg tablet Active 37.5 MCG PO Daily January 06, 2024 12:00am Complies with drug therapyStart: 53-84-4016jqrm 1 tablet by mouth once daily Liothyronine 25 mcg tablet Active 37.5 MCG PO Daily January 06, 2024 12:00am Start: 79-29-2926wkhy 37.5 ug by mouth once dailyLiothyronine Active 37.5 MCG PO Daily January 06, 2024 12:00amStart: 96-52-7457Fuyyqnd 25 mcg Tab 37.5 mcg = 1.5 tab(s), Oral, Daily, Refills(s) 0 Start Date: 11/25/22 Status: Ordered Repeat number: 1Start: 78-29-2602bvxu 1 tablet by mouth once dailyCytomel 25 mcg Tab 25 mcg = 1 tab(s), Oral, Daily, Refills(s) 0 Start Date: 11/25/22 Status: Ordered take 1.5 tablets by mouth in the morningliothyronine (Cytomel) 25 MCG tablet Take 1.5 tablets by mouth in the morning. Activelisinopril 10 mg oral tablet (20 sources)Angiotensin Converting Enzyme InhibitorStart: 51-35-4021wlra 1 tablet by mouth in the morninglisinopril 10 MG tablet Take 10 mg by mouth in the morning. 03/02/2024 ActiveStart: 89-40-7269hwlu 1 tablet by mouth once daily lisinopril 5 mg Tab 5 mg = 1 tab(s), Oral, Daily, Refills(s) 0 Start Date: 11/25/22 Status: Orderedlovastatin 20 mg oral tablet (20 sources)HMG-CoA Reductase InhibitorStart: 02-87-1135lrag 1 tablet by mouth once dailyLovastatin 20 mg tablet Active 20 MG PO Daily January 06, 2024 12:00am Complies with drug therapymagnesium oxide 400 mg oral tablet (5 sources)Start: 14-13-8092abcw 1 tablet by mouth in the morningmagnesium oxide (Mag-Ox) 400 MG tablet Take 1 tablet by mouth in the morning. 06/27/2024 Active Magnesium Sulfate (2 sources)Start: 96-28-1146awglhpniv sulfate Refills(s) 0 Start Date: 07/13/24 Status: Ordered Repeat number: 1ondansetron 4 mg disintegrating oral tablet (2 sources)Serotonin-3 Receptor AntagonistStart: 46-15-5511towf 1 tablet by mouth every six hours as needed for nauseaondansetron 4 mg Dis Tab 4 mg = 1 tab(s), Oral, q6hr, PRN Nausea/Vomiting, Refills(s) 0 Start Date:11/25/22 Status: Orderedpantoprazole 40 mg delayed release oral tablet (14 sources)Proton Pump InhibitorStart: 17-51-5791wibk 1 tablet by mouth twice dailyPantoprazole 40 mg tablet,delayed release (DR/EC) Active 40 MG PO Twice daily June 27, 2024 11:17am Complies with drug therapyStart: 01-06-2024 End: 56-11-5717rfkr 1 tablet by mouth once dailyPantoprazole 40 mg tablet,delayed release (DR/EC) Discontinued 40 MG PO Daily January 06, 2024 12:00am June 27, 2024 11:19amphenazopyridine hydrochloride 100 mg oral tablet (1 source)Start: 07-13-2024 End: 11-90-4575frld 1 tablet by mouth three times dailyPyridium 100 mg Tab 100 mg = 1 tab(s), Oral, TID, X 3 day(s), # 9 tab(s), Refills(s) 0, Pharmacy: [id number], 160.1, cm, 06/26/24 14:41:00 EDT, Height/Length Dosing, 136.8, kg, 06/26/24 14:41:00 EDT, Weight Dosing Start Date: 07/13/24 Stop Date: 07/16/24 Status: Ordered Quantity: 9.0 Unit: tab(s) Repeat number: 1polyethylene glycol 3350 408682 mg / potassium chloride 2970 mg / sodium bicarbonate 6740 mg / sodiu m chloride 5860 mg / sodium sulfate 60239 mg powder for oral solution (5 sources)Osmotic LaxativeStart: 20-81-5030Wom 3350-Electrolytes (Golytely) 236-22.74-6.74 -5.86 gram recon soln Active 240 ML PO Q10M 4000 July 24, 2024 12:00am until fecal effluent is clear Complies with drug therapyStart: 06-28-2024 End: 09-25-4176Yiq 3350-Electrolytes (Golytely) 236-22.74-6.74 -5.86 gram recon soln Discontinued 240 ML PO Q10M 4000 June 28, 2024 12:00am July 19, 2024 11:28am follow instructions given at officetraMADol hydrochloride 50 mg oral tablet (20 sources)Opioid AgonistStart: 08-09-2023 End: 80-36-4073jmqXPEvh (Ultram) 50 MG tablet 08/09/2023 Active Completed/Discontinued Medications MedicationDrug Class(es)DatesSig (Normalized)Sig (Original)citric acid 75 mg/ml / magnesium oxide 21.9 mg/ml / picosulfate sodium 0.0625 mg/ml oral solution (5 sources)Calculi Dissolution Agent, Anti-coagulantStart: 01-06-2024 End: 90-26-2479Xzp Picosulf-Mag Ox-Citric Ac (Clenpiq) 10 mg-3.5 gram- 12 gram/160 mL solution Discontinued ML PO Twice daily January 06, 2024 12:00am February 14, 2024 12:05pm FreeTextSiml at 3pm, 160ml at 9pm the day prior to colonoscopy Orally BID; Note: Source Status: Start; Refills: 0; Qty: 1 Box; Provider: Musa Bearden Hhyoscyamine sulfate 0.125 mg oral tablet (5 sources)Start: 01-06-2024 End: 95-27-0645zkhj 1 tablet by mouth four times dailyHyoscyamine Sulfate 0.125 mg tablet Discontinued 0.125 MG PO Four times daily January 06, 2024 12:00am February 14, 2024 12:04pmsodium polystyrene sulfonate 57388 mg powder for oral suspension (11 sources)Start: 06-27-2024 End: 82-02-2561hpkv 15 g by mouth three times weeklySodium Polystyrene Sulfonate powder Discontinued 15 GM PO 3 Times a week 150 June 27, 2024 11:56am June 27, 2024 1:04pmStart: 22-52-8201xoyi 15 g by mouth three times weeklySodium Polystyrene Sulfonate powder Active 15 GM PO 3 Times a week 150 June 27, 2024 11:56amStart: 02-14-2024 End: 00-33-1158gktl 15 g by mouth three times weeklySodium Polystyrene Sulfonate powder Discontinued 15 GM PO 3 Times a week 150 June 27, 2024 11:56am June 27, 2024 1:04pm Problems Active Problems Problem ClassificationProblemDateDocumented DateEpisodic/ChronicCardiac dysrhythmias (20 sources)Supraventricular tachycardia; Translations: [Atrial fibrillation] Onset: 84-52-6604GzdjvunHwnqbby kidney disease (20 sources)Chronic kidney disease stage 4; Translations: [Chronic kidney disease, stage 4 (severe)]Onset: 804924-01-0525HojcidfFzrzghj obstructive pulmonary disease and bronchiectasis (20 sources)Chronic obstructive lung disease; Translations: [Chronic obstructive pulmonary disease, unspecified]Onset: 810234-56-8127GylgbpxNnmmqtqqkl disorders (12 sources)Cardiac pacemaker in situ; Translations: [Presence of cardiac pacemaker]Onset: 552127-98-4031YulrmnmEkwhfiracg heart failure; nonhypertensive (3 sources)Acute combined systolic (congestive) and diastolic (congestive) heart failure; Translations: [Unspecified diastolic (congestive) heart failure]Onset: 29-05-0350WjnjuuwRwdwjszv atherosclerosis and other heart disease (20 sources)Coronary arteriosclerosis; Translations: [Atherosclerotic heart disease of [place] coronary artery without angina pectoris]Onset: 05-09-2024 04-55-8488RxwgiivNksspdmpza and other anemia (1 source)Anemia in chronic kidney disease; Translations: [Anemia in chronic kidney disease]Onset: 22-79-6049CovfklnNieotdlrt of lipid metabolism (20 sources)Hyperlipidemia, unspecified; Translations: [Pure hypercholesterolemia, unspecified]Onset: 988367-00-8179MwkdubgZfnwnthzu hypertension (20 sources)Hypertensive disorder; Translations: [Essential hypertension]Onset: 161672-91-7223EcilirnQflumstgpkrgmmph hemorrhage (1 source)Hemorrhage of anus and rectum; Translations: [Hemorrhage of anus and rectum]Onset: 72-61-3989WrjyasaqVmjkhcbgubbnu symptoms and ill-defined conditions (20 sources)Stress incontinence (female) (male); Translations: [Female stress incontinence]Onset: 57-07-5825BwiziueAisxfzum; including migraine (2 sources)Migraine, unspecified, not intractable, without status migrainosus; Translations: [Migraine, unspecified, not intractable, without status migrainosus]Onset: 91-68-2042RiamiwnVrvbgnfl; including migraine (2 sources)Headache; Translations: [Nonintractable headache, unspecified chronicity pattern, unspecified headache type]41-92-0568ZcaqixyxBuxxqyylrdme with complications and secondary hypertension (17 sources)Hypertensive heart disease with heart failure; Translations: [Chronic kidney disease due to hypertension]Onset: 928016-05-9125Ggasomd Osteoporosis (4 sources)Age-related osteoporosis without current pathological fracture; Translations: [AGE-REL OSTEOPOR W/OCURR PATH FX]Onset: 22-11-7301KddclzsLsyxu diseases of bladder and urethra (7 sources)Urethral intrinsic sphincter deficiency; Translations: [Intrinsic sphincter deficiency (ISD)]Onset: 04-39-7481WdkuubdaWfvzp diseases of kidney and ureters (20 sources)Secondary hyperparathyroidism; Translations: [Secondary hyperparathyroidism of renal origin]Onset: 504874-42-8080RurcapjEvfgt diseases of kidney and ureters (4 sources)Secondary hyperparathyroidism of renal origin; Translations: [Secondary hyperparathyroidism (of renal origin)]Onset: 818920-78-7901 ChronicOther diseases of veins and lymphatics (1 source)Lymphedema, not elsewhere classified; Translations: [LYMPHEDEMA NOT ELSEWHERE CLASSIFIED]Onset: 42-76-4399ByvscfeVpnog ear and sense organ disorders (2 sources)Mixed conductive and sensorineural hearing loss, unilateral, right ear, with unrestricted hearing on the contralateral side; Translations: [Mixed hearing loss, unilateral]89-50-8153KjgdylaPigte ear and sense organ disorders (2 sources)Chronic right myringitis; Translations: [Chronic myringitis, right ear]87-20-9887TnqaoeoAzjtl ear and sense organ disorders (2 sources)Cerebrospinal fluid otorrhea; Translations: [CSF otorrhea]08-09-2024 EpisodicOther nutritional; endocrine; and metabolic disorders (20 sources)Morbid obesity; Translations: [Morbid (severe) obesity due to excess calories]Onset: 519906-11-5281QgonvuzBtvgm nutritional; endocrine; and metabolic disorders (6 sources)Hypomagnesemia; Translations: [Hypomagnesemia]70-91-3672ZnmaghhKyozu nutritional; endocrine; and metabolic disorders (3 sources)Hypomagnesemia; Translations: [Disorders of magnesium metabolism] Onset: 181275-00-6013ZvdbbooParni nutritional; endocrine; and metabolic disorders (2 sources)Body mass index 40+ - severely obese; Translations: [Body mass index (BMI) 45.0-49.9, adult]Onset: 811777-05-4360HgqkomfIycpy nutritional; endocrine; and metabolic disorders (6 sources)Hyperuricemia; Translations: [Hyperuricemia without signs of inflammatory arthritis and tophaceous disease]37-75-6511IfkpogiqFgsyx nutritional; endocrine; and metabolic disorders (3 sources)Hyperuricemia without signs of inflammatory arthritis and tophaceous disease; Translations: [Other abnormal blood chemistry]Onset: 09-22-2024 38-99-9521HxgfeokwTchgu upper respiratory infections (2 sources)Acute upper respiratory infection; Translations: [Acute upper respiratory infection, unspecified]61-95-5724YkdkxlbhFudnnz media and related conditions (2 sources)Chronic right mastoiditis; Translations: [Chronic mastoiditis, right ear]71-36-7940GytvetwUumexv media and related conditions (12 sources)Otitis media; Translations: [Unspecified nonsuppurative otitis media, right ear]77-72-6904GtzqyqdwDpugxnekg heart disease (20 sources)Pulmonary hypertension; Translations: [Secondary pulmonary hypertension]Onset: 110635-95-3578MifmeavKhhtyldl codes; unclassified (18 sources)Obstructive sleep apnea syndrome; Translations: [Obstructive sleep apnea (adult) (pediatric)]Onset: 436261-14-6665LrgqtpaJxcspprjo and history of mental health and substance abuse codes (5 sources)Tobacco use and exposure - vzyfikb60-46-0461SblwjhpQhxqyustrtr; intervertebral disc disorders; other back problems (18 sources)Lumbosacral spondylosis without myelopathy; Translations: [Spondylosis without myelopathy or radiculopathy, lumbosacral region]Onset: 729598-21-6926VjbpogyWgiwaop disorders (20 sources)Hypothyroidism, unspecified; Translations: [Hypothyroidism]Onset: 274325-89-7479XehwbbjEglmizpqrrnw (3 sources)CONTACT W/AND (SUSP) EXPOS COVID-19; Translations: [CONTACT W/AND (SUSP) EXPOS COVID-19]Onset: 54-31-7918Iwliaesejzgj (1 source)COUGH, UNSPECIFIED; Translations: [COUGH, UNSPECIFIED]Onset: 51-61-7107Dypfdvwbvsie (5 sources)Long-term current use of yjkiqee47-06-7084Jffqsvdqvlsp (1 source)Vertebrogenic low back pain; Translations: [Vertebrogenic low back pain]Onset: 11-23-2023 Past or Other Problems Problem ClassificationProblemDateDocumented DateEpisodic/ChronicAbdominal pain (20 sources)Lower abdominal pain; Translations: [Lower abdominal pain, unspecified]Onset: 048048-48-3713OeuahyobEkmrmztc of urinary tract (20 sources)Kidney stone; Translations: [Calculus of kidney]Onset: 03-31-2024 EpisodicCardiac dysrhythmias (20 sources)Palpitations; Translations: [Bradycardia]Onset: 27-18-7978Ugmpkkvg Conditions associated with dizziness or vertigo (18 sources)Lightheadedness; Translations: [Dizziness and giddiness]Onset: 903187-28-6521UndighhyNxbvshezle and other anemia (1 source)Anemia, unspecified; Translations: [ANEMIA UNSPECIFIED]Onset: 90-08-8449EohkdhrnT Codes: Cut/pierceb (1 source)Contact with other sharp object(s), not elsewhere classified, initial encounter; Translations: [[facility] OT SHRP OB NOT ELSW CLASS INI]Onset: 08-14-2021 EpisodicFluid and electrolyte disorders (20 sources)Hyperkalemia; Translations: [Hyperkalemia]Onset: 01-26-2024 63-17-9677EjvfrsggZzbtexa and fatigue (18 sources)Fatigue; Translations: [Other fatigue]Onset: EpisodicNonspecific chest pain (19 sources)Chest pain, unspecified; Translations: [Chest pain]Onset: 07-27-2016 11-66-3777SmnscoclZjna wounds of extremities (4 sources)Laceration without foreign body, right lower leg, initial encounter; Translations: [LACERATION W/O FB RT LOW LEG INIT]Onset: 00-16-7932GbgfliscNsgsi aftercare (1 source)Other prison (current) drug therapy; 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]Onset: 71-14-7825MqytsriiCmstt aftercare (20 sources)Long-term current use of aspirin; Translations: [half-way (current) use of aspirin]Onset: 12-83-1046JeyotuouWknyv and unspecified benign neoplasm (1 source)Personal history of colonic polyps; Translations: [PERSONAL HISTORY OF COLONIC POLYPS]Onset: 25-78-7722NxisjnmyQavqh and unspecified benign neoplasm (20 sources)History of polyp of colon; Translations: [History of colon polyps] Onset: 930397-70-2600JnntbuwtCizwn circulatory disease (1 source)Other specified symptoms and signs involving the circulatory and respiratory systems; Translations:[OTH SPEC SX SIGNS INVLV CIRC RS]Onset: 71-04-3776BiixhrvdYpgio diseases of veins and lymphatics (1 source)Venous insufficiency (chronic) (peripheral); Translations: [VENOUS INSUFF CHRONIC PERIPHERAL]Onset: 17-54-5586WutzqeiqIfngq lower respiratory disease (4 sources)Shortness of breath; Translations: [SHORTNESS OF BREATH]Onset: 63-70-5942WpccdgnpOcutb lower respiratory disease (20 sources)Multiple nodules of lung; Translations: [Other nonspecific abnormal finding of lung field]Onset: 257848-61-9484IwwwurtlKjdwh lower respiratory disease (18 sources)Dyspnea; Translations: [Dyspnea, unspecified]Onset: 07-27-2016 17-74-9044JvfczitdDqhpp screening for suspected conditions (not mental disorders or infectious disease) (4 sources)Encounter for screening, unspecified; Translations: [ENCOUNTER FOR SCREENING UNSPECIFIED]Onset: 75-55-8119NahbqsypPtjflxji codes; unclassified (4 sources)Edema, unspecified; Translations: [EDEMA UNSPECIFIED]Onset: 05-98-1573MpcaaobtVemkmofu codes; unclassified (1 source)Localized edema; Translations: [LOCALIZED EDEMA]Onset: 01-19-2022 EpisodicResidual codes; unclassified (1 source)Acquired absence of both cervix and uterus; Translations: [ACQUIRED ABSENCE BOTH CERVIX AND UTERUS]Onset: 93-08-2034XqjrenzlAxgbneam codes; unclassified (20 sources)History of operative procedure on lumbar spinal structure; Translations: [Other specified postprocedural states]Onset: EpisodicResidual codes; unclassified (18 sources)Edema; Translations: [Edema, unspecified]Onset: EpisodicScreening and history of mental health and substance abuse codes (20 sources)Personal history of nicotine dependence; Translations: [H/O: Disorder]Onset: 45-28-3210VoidfckiQrwviwtfgak; intervertebral disc disorders; other back problems (20 sources)Spinal stenosis, lumbar region with neurogenic claudication; Translations: [Radiculopathy, lumbar region]Onset: 69-20-3845Uegpbwmp Unclassified (1 source)CONTACT W/AND (SUSP) EXPOS COVID-19; Translations: [CONTACT W/AND (SUSP) EXPOS COVID-19]Onset: 36-52-8699Aqlbbidmegci (1 source)Vertebrogenic low back pain; Translations: [Vertebrogenic low back pain]Onset: 11-23-2023 Results Test NameValueInterpretationReference RangeFacilityOrders Onlyon 11-10-2024 Orders [id number] Vero Sadler 1950 F Date Provider Department Center 11/10/2024 JOSEY ARNOLD [facility] Family History Problem Relation Age of Onset Other Mother Coronary artery disease Mother Other Mother Other Mother Other Father Hypertension Father Hyperlipidemia Father Other Daughter Family Status - Relation Status Age at Mother Father DaughterNormalUniKettering Health SpringfieldOffice Visiton 10-24-2024 Follow-up [id number] Vero Sadler 1950 Date Provider Department Center 10/24/2024 JOSEY ARNOLD [facility] Family History Problem Relation Age of Onset Other Mother Coronary artery disease Mother Other Mother Other Mother Other Father Hypertension Father Hyperlipidemia Father Other Daughter Family Status - Relation Status Age at Mother Father Daughter Level of Service:00064 OR OFFICE/OUTPATIENT ESTABLISHED LOW MDM 20 [facility] CenterAlbumin [Mass/volume] in Serum or Plasma by Bromocresol green (BCG) dye binding methoOrdered By: Lizette Schaffer on 09-22-2024 Albumin BCG dye [Mass/Vol]3.8 g/dL3.5-5.7FRegency Hospital [facility] West Appearance of UrineOrdered By: Lizette Schaffer on 97-04-3443Zohtfpuufy (U)Cloudy Critically abnormalCleCleveland Clinic Akron GeneralComment on above:Order Comment: Name Collection Type:: Clean-Voided MidstreamPerformed By: #### JOSE SERUM, SPE W INTERPRET, KAPPA #### [facility] , #### FE and TIBC, MG, TAYLOR, RENAL, PTH, [id number], CBCNO, URIC #### [facility] [address] [place] [address] USABacteria [Presence] in Urine by AutomatedOrdered By: Lizette Schaffer on 61-13-5166Tnjnjubm Auto Ql (U)1+ [HPF]HighNone SeenMercy Health St. Joseph Warren HospitalBilirubin Test strip Ql (U)Ordered By: Lizette Schaffer on 09-22-2024 Bilirubin Ql (U)NegativeNegativeMercy Health St. Joseph Warren HospitalCalcium [Mass/volume] in Serum or PlasmaOrdered By: Lizette Schaffer on 75-54-0674Ylyrxzt [Mass/Vol]8.9 mg/dLNormal8.6-10.3FRegency Hospital Cleveland WestComment on above:Performed By: #### JOSE SERUM, SPE W INTERPRET, KAPPA #### [facility] , #### FE and TIBC, MG, TAYLOR, RENAL, PTH, [id number], CBCNO, URIC #### [facility] [address] [place] [address] USACarbon dioxide, total [Moles/volume] in Serum or Plasma Ordered By: Lizette Schaffer on 61-81-7981TQ0 [Moles/Vol]24.4 mmol/SGlmxiw62.0-31.[address] Joseph Warren HospitalComment on above:Performed By: #### JOSE SERUM, SPE W INTERPRET, KAPPA #### [facility] , #### FE and TIBC, MG, TAYLOR, RENAL, PTH, [id number], CBCNO, URIC #### [facility] [address] [place] [address] USAChloride [Moles/volume] in Serum or PlasmaOrdered By: Lizette Schaffer on 41-16-3022Tjylyiow [Moles/Vol]109 mmol/RGkvf78-042AqigndcdlMercy Health St. Joseph Warren HospitalComment on above:Performed By: #### JOSE SERUM, SPE W INTERPRET, KAPPA #### [facility] , #### FE and TIBC, MG, TAYLOR, RENAL, PTH, [id number], CBCNO, URIC #### [facility] [address] [place] [address] USAColor of Urine by AutoOrdered By: Lizette Schaffer on 39-46-7951Seqll (U)YellowNormalYellowMercy Health St. Joseph Warren HospitalComment on above:Order Comment: Name Collection Type:: Clean-Voided MidstreamPerformed By: #### JOSE SERUM, SPE W INTERPRET, KAPPA #### [facility] , #### FE and TIBC, MG, TAYLOR, RENAL, PTH, [id number], CBCNO, URIC #### [facility] [address] [place] [address] USACreatinine [Mass/volume] in Serum or PlasmaOrdered By: Lizette Schaffer on 57-17-2596Clxnrdqdsg [Mass/Vol]2.25 mg/dLHigh0.60-1.20[facility]. Joseph Warren HospitalComment on above:Performed By: #### JOSE SERUM, SPE W INTERPRET, KAPPA #### [facility] , #### FE and TIBC, MG, TAYLOR, RENAL, PTH, [id number], CBCNO, URIC #### [facility] [address] [place] [id number] USACreatinine [Mass/volume] in UrineOrdered By: Lizette Schaffer on 74-85-9464Gsyvylzgnr (U) [Mass/Vol]153.00 mg/dLMercy Health St. Joseph Warren HospitalComment on above:No reference range establishedDipstick and Microscopicon 48-31-7963Xzxqbtbm,Urine1+ [HPF]NormalNone SeenThe [facility] Comment on above:Order Comment: Name Collection Type:: Clean-Voided Midstream Performed By: #### JOSE SERUM, SPE W INTERPRET, KAPPA #### [facility] , #### FE and TIBC, MG, TAYLOR, RENAL, PTH, [id number], CBCNO, URIC #### [place] [address] USABilirubin,UrineNegativeNormalNegativeAdventhealth Celebration Physician GroupComment on above:Order Comment: Name Collection Type:: Clean- Voided MidstreamPerformed By: #### JOSE SERUM, SPE W INTERPRET, KAPPA #### [facility] , #### FE and TIBC, MG, TAYLOR, RENAL, PTH, [id number], CBCNO, URIC #### [place] [address] USAGlucose Ql (U)NormalNormalNormSumma Health Wadsworth - Rittman Medical Centere [facility] Physician GroupComment on above:Order Comment: Name Collection Type:: Clean-Voided MidstreamPerformed By: #### JOSE SERUM, SPE W INTERPRET, KAPPA #### [facility] , #### FE and TIBC, MG, TAYLOR, RENAL, PTH, [id number], CBCNO, URIC #### [place] [address] USAHyaline Casts,Knhwo8-6Ytmeul3-9Zke [facility] Physician GroupComment on above:Order Comment: Name Collection Type:: Clean-Voided MidstreamPerformed By: #### JOSE SERUM, SPE W INTERPRET, KAPPA #### [facility] , #### FE and TIBC, MG, TAYLOR, RENAL, PTH, [id number], CBCNO, URIC #### [place] [address] USAMucus,UrineRareNormalAdventhealth Celebration Physician GroupComment on above:Order Comment: Name Collection Type:: Clean-Voided MidstreamResult Comment: PERFORMED BY: [address] [address] PATHOLOGIST AUTOMATIC QUILLING MACHINE OPERATOR CASSIDY CASIANO M.D.Performed By: #### JOSE SERUM, SPE W INTERPRET, KAPPA #### [facility] , #### FE and TIBC, MG, TAYLOR, RENAL, PTH, [id number], CBCNO, URIC #### [place] [address] USANitrite,UrineNegativeNormalNegativeAdventhealth Celebration Physician GroupComment on above:Order Comment: Name Collection Type:: Clean-Voided MidstreamPerformed By: #### JOSE SERUM, SPE W INTERPRET, KAPPA #### [facility] , #### FE and TIBC, MG, TAYLOR, RENAL, PTH, [id number], CBCNO, URIC #### [place] [address] USAOccult Blood,UrineNegativeNormalNegativeAdventhealth Celebration Physician GroupComment on above:Order Comment: Name Collection Type:: Clean- Voided MidstreamPerformed By: #### JOSE SERUM, SPE W INTERPRET, KAPPA #### [facility] , #### FE and TIBC, MG, TAYLOR, RENAL, PTH, [id number], CBCNO, URIC #### [place] [address] USAProtein,UrineNegativeNormalNegativeAdventhealth Celebration Physician GroupComment on above:Order Comment: Name Collection Type:: Clean-Voided MidstreamPerformed By: #### JOSE SERUM, SPE W INTERPRET, KAPPA #### [facility] , #### FE and TIBC, MG, TAYLOR, RENAL, PTH, [id number], CBCNO, URIC #### [place] [address] USARBC,Scpac9-0Xcvgdi9-7Rxj [facility] Physician GroupComment on above:Order Comment: Name Collection Type:: Clean-Voided MidstreamPerformed By: #### JOSE SERUM, SPE W INTERPRET, KAPPA #### [facility] , #### FE and TIBC, MG, TAYLOR, RENAL, PTH, [id number], CBCNO, URIC #### [facility] [address] [place] [id number] USASpecificy Yutan,Urine1.547Hvujtl3.001-1.030Ad[facility] Celebr[facility] Physician GroupComment on above:Order Comment: Name Collection Type:: Clean- Voided MidstreamPerformed By: #### JOSE SERUM, SPE W INTERPRET, KAPPA #### [facility] , #### FE and TIBC, MG, TAYLOR, RENAL, PTH, [id number], CBCNO, URIC #### [facility] [address] [place], [place] [phone] USASquamous Epithelial Cell,Vbxei6-6Kqbjeg4-6Ehe [facility] Physician GroupComment on above:Order Comment: Name Collection Type:: Clean- Voided MidstreamPerformed By: #### JOSE SERUM, SPE W INTERPRET, KAPPA #### [facility] , #### FE and TIBC, MG, TAYLOR, RENAL, PTH, [id number], CBCNO, URIC #### [facility] [address] [place], [place] [address] USAUrobilinogen,UrineNormalNormalNormalThSteele Memorial Medical Center Physician GroupComment on above:Order Comment: Name Collection Type:: Clean- Voided MidstreamPerformed By: #### JOSE SERUM, SPE W INTERPRET, KAPPA #### [facility] , #### FE and TIBC, MG, TAYLOR, RENAL, PTH, [id number], CBCNO, URIC #### [facility] [address] [place], [place] [address] USAWBC,Tddvm3-9Sziolh5-3Qdl [facility] Physician GroupComment on above:Order Comment: Name Collection Type:: Clean-Voided MidstreamPerformed By: #### JOSE SERUM, SPE W INTERPRET, KAPPA #### [facility] , #### FE and TIBC, MG, TAYLOR, RENAL, PTH, [id number], CBCNO, URIC #### [facility] [address] [place] [address] USAEpithelial cells.squamous [#/area] in Urine sediment by Automated countOrdered By: Lizette Bojorquezr on 08-62-1793Izbwctcsis cells.squamous Auto (Urine sed) [#/Area]5-9 [HPF]High0-2FRegency Hospital Cleveland West Erythrocyte distribution width [Ratio] by Automated countOrdered By: Lizette Bojorquezr on 21-45-9108Mbbwmrqpoio distribution width (RBC) [Ratio]15.0 %Zcvkok05.9-15.[address] [facility] Warren HospitalComment on above:Performed By: #### JOSE SERUM, SPE W INTERPRET, KAPPA #### [facility] , #### FE and TIBC, MG, TAYLOR, RENAL, PTH, [id number], CBCNO, URIC #### [facility] [address] [place] [id number] USAErythrocytes [#/area] in Urine sediment by Automated count Ordered By: Lizette Schaffer on 11-64-1218ESC Auto (Urine sed) [#/Area]1-2 [HPF]0-[address] [facility] Warren HospitalErythrocytes [#/volume] in Blood by Automated countOrdered By: Lizette Connerdir on 76-87-3455UXD (Bld) [#/Vol]4.26 10*6/uLNormal 3.60-5.00[facility]. [facility] Warren HospitalComment on above:Performed By: #### JOSE SERUM, SPE W INTERPRET, KAPPA #### [facility] , #### FE and TIBC, MG, TAYLOR, RENAL, PTH, [id number], CBCNO, URIC #### [facility] [address] [place] [phone] USAFerritin [Mass/volume] in Serum or PlasmaOrdered By: Lizette Sarbjit on 16-53-8353Bgceeqsa [Mass/Vol]73.7 ng/hEFkmtmu34.0-306.8[facility]. Joseph Warren HospitalComment on above:Performed By: #### JOSE SERUM, SPE W INTERPRET, KAPPA #### [facility] , #### FE and TIBC, MG, TAYLOR, RENAL, PTH, [id number], CBCNO, URIC #### [facility] [address] [place] [address] USAFree K+L LT Chains, Qn, Son 43-16-7628Zwwl [place] Light Chains, S46.0 mg/LNormal3.3-19.4The [facility] Physician GroupComment on above: Performed By: #### JOSE SERUM, SPE W INTERPRET, KAPPA #### [facility] , #### FE and TIBC, MG, TAYLOR, RENAL, PTH, [id number], CBCNO, URIC #### [facility] [address] [place] [address] USAFree Lambda Light Chains, S25.9 mg/LNormal5.7-26.3The [facility] Physician GroupComment on above:Performed By: #### JOSE SERUM, SPE W INTERPRET, KAPPA #### [facility] , #### FE and TIBC, MG, TAYLOR, RENAL, PTH, [id number], CBCNO, URIC #### [place] [address] USAKappa/Lambda Ratio, S1.16Fuytbi8.26-1.65The [facility] Physician GroupComment on above:Result Comment: Performed at: [facility] Lab[address] [id number] Front Edger: Jozef Medina PhD, Phone: [phone] PERFORMED BY: [place] [address] PATHOLOGIST AUTOMATIC QUILLING MACHINE OPERATOR CASSIDY CASIANO M.D.Performed By: #### JOSE SERUM, SPE W INTERPRET, KAPPA #### [facility] , #### FE and TIBC, MG, TAYLOR, RENAL, PTH, [id number], CBCNO, URIC #### [facility] [address] [place] [address] USAGlucose [Mass/volume] in Serum or PlasmaOrdered By: Lizette Schaffer on 92-25-3743Ptcgvfy [Mass/Vol]95 mg/vBUfyzit74-326JjbaucoihMercy Health St. Joseph Warren HospitalComment on above:ADA recommended reference rangeRandom Glucose Reference Range is dependent on time and content of last meal. Glucose of more than 200 mg/dL in a nonstressed, ambulatory subject supports the diagnosisof Diabetes Mellitus.Result Comment: Random Glucose Reference Range is dependent on time and content of last meal. Glucose of more than 200 mg/dL in a nonstressed, ambulatory subject supports the diagnosis of Diabetes Mellitus. ADA recommended reference rangePerformed By: #### JOSE SERUM, SPE W INTERPRET, KAPPA #### [facility] , #### FE and TIBC, MG, TAYLOR, RENAL, PTH, [id number], CBCNO, URIC #### [facility] [address] [place] [address] USAGlucose [Mass/volume] in Urine by Test stripOrdered By: Lizette Schaffer on 69-68-6072Nzepvoy Test strip (U) [Mass/Vol]Normal mg/dLNormal [facility] Warren HospitalHematocrit [Volume Fraction] of Blood by Automated countOrdered By: Lizette Schaffer on 25-81-1302Ymrihljjrs (Bld) [Volume fraction]37.9 %Ynkftt08.0-46.4FRegency Hospital Cleveland WestComment on above: Performed By: #### JOSE SERUM, SPE W INTERPRET, KAPPA #### [facility] , #### FE and TIBC, MG, TAYLOR, RENAL, PTH, [id number], CBCNO, URIC #### [facility] [address] [place] [address] USAHemoglobin Test strip Ql (U)Ordered By: Lizette Schaffer on 15-95-8144Tqhugqfpdm Ql (U)NegativeNegativeMercy Health St. [facility] Warren Hospital Hemoglobin [Mass/volume] in BloodOrdered By: Lizette Schaffer on 23-54-5767Tnggpwyuyy (Bld) [Mass/Vol]12.3 g/jECapruf57.8-15.4FRegency Hospital [facility] West Comment on above:Performed By: #### JOSE SERUM, SPE W INTERPRET, KAPPA #### [facility] , #### FE and TIBC, MG, TAYLOR, RENAL, PTH, [id number], CBCNO, URIC #### [facility] [address] [place] [address] USAHemogram CBC Without Diffon 36-40-2921Rfex Corpuscular HGB Conc32.5 g/mFKgcmrz93.0-35.0The [facility] Physician GroupComment on above: Performed By: #### JOSE SERUM, SPE W INTERPRET, KAPPA #### [facility] , #### FE and TIBC, MG, TAYLOR, RENAL, PTH, [id number], CBCNO, URIC #### [facility] [address] [place] [address] USAWhite Blood Count6.6 [CFU]/mLNormal3.8-11.6The [facility] Physician GroupComment on above:Performed By: #### JOSE SERUM, SPE W INTERPRET, KAPPA #### [facility] , #### FE and TIBC, MG, TAYLOR, RENAL, PTH, [id number], CBCNO, URIC #### [facility] [address] [place] [address] USAHyaline casts [#/area] in Urine sediment by Automated countOrdered By: Lizette Schaffer on 58-80-5883Hrzovlr casts Auto (Urine sed) [#/Area]0-8 [LPF]0-8[facility] Warren HospitalImmunofixation for Urine Ordered By: Lizette Schaffer on 18-21-9316Mscpedjzztosht Immunofixation (U) [Interp] Comment:.[facility] Warren HospitalComment on above:Presence of monoclonal protein is unclear at this time. Suggestrepeat in 3 to 6 months if clinically indicated.Performed at: - Lab[address] [id number] Director: Jozef Medina PhD, Phone: [phone] Immunofixation, (JOSE), Urineon 42-17-8602Mqkgdywuzgxkbn, (JOSE), UrineComment: Normal.The [facility] Physician GroupComment on above:Result Comment: Presence of monoclonal protein is unclear at this time. Suggest repeat in 3 to 6 months if clinically indicated. Performed at: - Lab[address] [id number] Front Edger: Jozef Medina PhD, Phone: [phone] PERFORMED BY: [place] [address] PATHOLOGIST AUTOMATIC QUILLING MACHINE OPERATOR CASSIDY CASIANO M.D.Performed By: #### JOSE SERUM, SPE W INTERPRET, KAPPA #### [facility] , #### FE and TIBC, MG, TAYLOR, RENAL, PTH, [id number], CBCNO, URIC #### [place] [address] USAImmunofixation,Serumon 18-01-4508Numayffylvshqr, Serum CommentNormal.The [facility] Physician GroupComment on above:Result Comment: No monoclonality detected.Performed By: #### JOSE SERUM, SPE W INTERPRET, KAPPA #### [facility] , #### FE and TIBC, MG, TAYLOR, RENAL, PTH, [id number], CBCNO, URIC #### [place] [address] USAImmunoglobulin A, Nwubq078 mg/qEPvcakf44-408Hbq [facility] Physician GroupComment on above:Performed By: #### JOSE SERUM, SPE W INTERPRET, KAPPA #### [facility] , #### FE and TIBC, MG, TAYLOR, RENAL, PTH, [id number], CBCNO, URIC #### [facility] [address] [place] [address] USAImmunoglobulin G1018 mg/gLMqovny504-8822Eys [facility] Physician GroupComment on above:Performed By: #### JOSE SERUM, SPE W INTERPRET, KAPPA #### [facility] , #### FE and TIBC, MG, TAYOLR, RENAL, PTH, [id number], CBCNO, URIC #### [facility] [address] [place] [id number] USAImmunoglobulin M, Serum91 mg/iKJudvuv56-549Clk [facility] Physician GroupComment on above:Result Comment: Performed at: - Labco[address] [id number] Front Edger: Jozef Medina PhD, Phone: [phone] By: #### JOSE SERUM, SPE W INTERPRET, KAPPA #### [facility] , #### FE and TIBC, MG, TAYLOR, RENAL, PTH, [id number], CBCNO, URIC #### [place] [address] USAIron [Mass/volume] in Serum or PlasmaOrdered By: Lizette Schaffer on 19-39-3190Bgaz [Mass/Vol]54 ug/bPOktdzn25-862TnqoaqrpcMercy Health St. Joseph Warren HospitalComment on above:Performed By: #### JOSE SERUM, SPE W INTERPRET, KAPPA #### [facility] , #### FE and TIBC, MG, TAYLOR, RENAL, PTH, [id number], CBCNO, URIC #### [facility] [address] [place] [address] USAIron and TIBC Profileon 09-22-2024% Iron Yzoqiuuyav88.0 % Dxhzso61-35Uxx [facility] Physician GroupComment on above:Performed By: #### JOSE SERUM, SPE W INTERPRET, KAPPA #### [facility] , #### FE and TIBC, MG, TAYLOR, RENAL, PTH, [id number], CBCNO, URIC #### [facility] [address] [place] [address] USATotal Iron Binding Abyttujd623 ug/cVMzo463-487Heo [facility] Physician GroupComment on above:Performed By: #### JOSE SERUM, SPE W INTERPRET, KAPPA #### [facility] , #### FE and TIBC, MG, TAYLOR, RENAL, PTH, [id number], CBCNO, URIC #### [facility] [address] [place] [phone] USAKetones [Presence] in Urine by Test stripOrdered By: Lizette Schaffer on 31-69-6845Bqnbdrl Ql (U)NegativeNormalNegativeMercy Health St. Joseph Warren HospitalComment on above:Order Comment: Name Collection Type:: Clean- Voided MidstreamPerformed By: #### JOSE SERUM, SPE W INTERPRET, KAPPA #### [facility] , #### FE and TIBC, MG, TAYLOR, RENAL, PTH, [id number], CBCNO, URIC #### [facility] [address] [place] [phone] USALeukocyte esterase [Presence] in Urine by Test strip Ordered By: Lizette Schaffer on 78-07-4437Jmzhdolae esterase Test strip Ql (U)1+ NormalNegSt. Francis HospitalComment on above:Order Comment: Name Collection Type:: Clean-Voided MidstreamPerformed By: #### JOSE SERUM, SPE W INTERPRET, KAPPA #### [facility] , #### FE and TIBC, MG, TAYLOR, RENAL, PTH, [id number], CBCNO, URIC #### [facility] [address] [place] [phone] USALeukocytes [#/area] in Urine sediment by Automated count Ordered By: Lizette Schaffer on 71-92-2931GCT Auto (Urine sed) [#/Area]5-9 [HPF]High 0-4FRegency Hospital Cleveland WestLeukocytes [#/volume] corrected for nucleated erythrocytes in Blood by Automated counOrdered By: Lizette Schaffer on 77-87-8051ZZR corrected for nucl RBC Auto (Bld) [#/Vol]6.6 10*3/uL3.8-11.6 [facility] [Entitic mass] by Automated countOrdered By: Lizette Schaffer on 11-05-4251LME (RBC) [Entitic mass]28.9 ojJymuqd85.7-34.[address] [facility] Warren HospitalComment on above:Performed By: #### JOSE SERUM, SPE W INTERPRET, KAPPA #### [facility] , #### FE and TIBC, MG, TAYLOR, RENAL, PTH, [id number], CBCNO, URIC #### [facility] [address] [place] [id number] [facility] Auto (RBC) [Mass/Vol]Ordered By: Lizette Schaffer on 96-26-0992DFOD (RBC) [Mass/Vol]32.5 g/dL32.0-35.0[facility] Joseph Warren HospitalMCV [Entitic volume] by Automated countOrdered By: Lizette Schaffer on 16-66-5987KTM (RBC) [Entitic vol]89.0 eHFylubd04-660XekkihtysMercy Health St. Joseph Warren HospitalComment on above:Performed By: #### JOSE SERUM, SPE W INTERPRET, KAPPA #### [facility] , #### FE and TIBC, MG, TAYLOR, RENAL, PTH, [id number], CBCNO, URIC #### [facility] [address] [place], [place] [address] USAMagnesium [Mass/volume] in Serum or PlasmaOrdered By: Lizette Schaffer on 27-95-3300Wqmjmmice [Mass/Vol]1.7 mg/dLLow1.9-2.7FRegency Hospital Cleveland WestComment on above:Performed By: #### JOSE SERUM, SPE W INTERPRET, KAPPA #### [facility] , #### FE and TIBC, MG, TAYLOR, RENAL, PTH, [id number], CBCNO, URIC #### [facility] [address] [place], [place] [address] USAMucus [Presence] in Urine by AutomatedOrdered By: Lizette Schaffer on 15-38-2722Aidmv Auto Ql (U)Rare [LPF][facility] Nitrite Test strip Ql (U)Ordered By: Lizette Schaffer on 03-10-0878Cuzbgwh Ql (U) NegativeNegativeMercy Health St. Joseph Warren HospitalNo Panel InformationOrdered By: Lizette Schaffer on 83-48-9496Fertgly Electrophoresis M-SpikeNot observed g/dLNot ObservedMercy Health St. Joseph Warren HospitalProtein Electrophoresis NoteComment. [facility] St. Joseph Warren HospitalComment on above:Protein electrophoresis scan will follow via computer,mail, or duty engineer delivery.Performed at: [address] [id number] Director: Jozef Medina PhD, Phone: [phone] GFR (CKD-EPI)22.480 mL/MinMercy Health St. Joseph Warren HospitalPharmacy Creatinine Clearance (ChemN/AFRegency Hospital [facility] West Protein Electrophoresis InterpretComment.[facility] Comment on above:Faint band in gamma region suspicious for monoclonalimmunoglobulin. This band may represent a benign spike asseen in older people or could be a paraprotein as seen inMultiple Myeloma, Waldenstrom's Ma croglobulinemia orLymphoma. Depending on clinical circumstances, furtherdiagnostic studies may include serum immunofixation orserum free light chain quantitation.Performed at: [facility] Foods You [place] [address]Mygrei4125HvogcmOld [place]ge, [place] [id number] Director: Jozef Medina PhD, Phone: [phone].intact [Mass/volume] in Serum or PlasmaOrdered By: Lizette Schaffer on 09-22-2024 Parathyrin.intact [Mass/Vol]68.7 pg/aC77-27CbfgiymwuMercy Health St. Joseph Warren Hospital Parathyroid Hormone Intacton 17-72-4669Yuyhksfqewv Hormone Ybcopy00.7 pg/mL Guwjld31-03Iyh [facility] Physician GroupComment on above:Result Comment: PERFORMED BY: [place] [address] PATHOLOGIST AUTOMATIC QUILLING MACHINE OPERATOR CASSIDY CASIANO M.D.Performed By: #### JOSE SERUM, SPE W INTERPRET, KAPPA #### [facility] , #### FE and TIBC, MG, TAYLOR, RENAL, PTH, [id number], CBCNO, URIC #### [place] [address] USAPhosphate [Mass/volume] in Serum or PlasmaOrdered By: Lizette Sarbjit on 27-84-0120Tqeaixgic [Mass/Vol]3.6 mg/dLNormal2.5-4.5FRegency Hospital Cleveland WestComment on above:Performed By: #### JOSE SERUM, SPE W INTERPRET, KAPPA #### [facility] , #### FE and TIBC, MG, TAYLOR, RENAL, PTH, [id number], CBCNO, URIC #### [facility] [address] [place] [address] USAPlatelet mean volume [Entitic volume] in Blood by Automated countOrdered By: Lizette Schaffer on 29-64-2860Yxdieruf mean volume (Bld) [Entitic vol]8.1 fLNormal6.3-10.7FRegency Hospital Cleveland WestComment on above:Result Comment: PERFORMED BY: [place] [address] PATHOLOGIST AUTOMATIC QUILLING MACHINE OPERATOR CASSIDY CASIANO M.D.Performed By: #### JOSE SERUM, SPE W INTERPRET, KAPPA #### [facility] , #### FE and TIBC, MG, TAYLOR, RENAL, PTH, [id number], CBCNO, URIC #### [address] [address] USAPlatelets [#/volume] in Blood by Automated countOrdered By: Lizette Schaffer on 86-07-7332Dcjpizdmo (Bld) [#/Vol]212 10*3/qHBfgpcv698-[address] Joseph Warren HospitalComment on above:Performed By: #### JOSE SERUM, SPE W INTERPRET, KAPPA #### [facility] , #### FE and TIBC, MG, TAYLOR, RENAL, PTH, [id number], CBCNO, URIC #### [facility] [address] [place], [place] [address] USAPotassium [Moles/volume] in Serum or PlasmaOrdered By: Lizette Schaffer on 10-84-6116Ssuthmgza [Moles/Vol]5.7 mmol/LHigh3.5-5.1FRegency Hospital Cleveland WestComment on above:Performed By: #### JOSE SERUM, SPE W INTERPRET, KAPPA #### [facility] , #### FE and TIBC, MG, TAYLOR, RENAL, PTH, [id number], CBCNO, URIC #### [facility] [address] [place] [address] USAProt Electrophoresis w/Interpon 58-93-0413Pquckjb [Mass/Vol]3.2 g/dLNormal2.9-4.4The [facility] Physician GroupComment on above: Performed By: #### JOSE SERUM, SPE W INTERPRET, KAPPA #### [facility] , #### FE and TIBC, MG, TAYLOR, RENAL, PTH, [id number], CBCNO, URIC #### [facility] [address] [place] [address] USAAlbumin/Globulin [Mass ratio]1.1 {ratio}Normal0.7-1.7The [facility] Physician GroupComment on above:Performed By: #### JOSE SERUM, SPE W INTERPRET, KAPPA #### [facility] , #### FE and TIBC, MG, TAYLOR, RENAL, PTH, [id number], CBCNO, URIC #### [facility] [address] [place] [address] UWYVapqw-8-Aushtuod9.3 g/dLNormal0.0-0.4The [facility] Physician GroupComment on above:Performed By: #### JOSE SERUM, SPE W INTERPRET, KAPPA #### [facility] , #### FE and TIBC, MG, TAYLOR, RENAL, PTH, [id number], CBCNO, URIC #### [facility] [address] [place] [address] TMMTkowx-3-Yayqxpuq5.8 g/dLNormal0.4-1.0The [facility] Physician GroupComment on above:Performed By: #### JOSE SERUM, SPE W INTERPRET, KAPPA #### [facility] , #### FE and TIBC, MG, TAYLOR, RENAL, PTH, [id number], CBCNO, URIC #### [facility] [address] [place] [address] USABeta Globulin0.9 g/dLNormal0.7-1.3The [facility] Physician GroupComment on above:Performed By: #### JOSE SERUM, SPE W INTERPRET, KAPPA #### [facility] , #### FE and TIBC, MG, TAYLOR, RENAL, PTH, [id number], CBCNO, URIC #### [place] [address] USAGamma Globulin0.9 g/dLNormal0.4-1.8The [facility] Physician GroupComment on above:Performed By: #### JOSE SERUM, SPE W INTERPRET, KAPPA #### [facility] , #### FE and TIBC, MG, TAYLOR, RENAL, PTH, [id number], CBCNO, URIC #### [place] [address] USAGlobulin (S) [Mass/Vol]2.9 g/dLNormal2.2-3.9The [facility] Physician GroupComment on above:Performed By: #### JOSE SERUM, SPE W INTERPRET, KAPPA #### [facility] , #### FE and TIBC, MG, TAYLOR, RENAL, PTH, [id number], CBCNO, URIC #### [place] [address] USAM-SpikeComment:NormalNot ObservedThe [facility] Physician GroupComment on above:Result Comment: SPE shows an asymmetrical gamma.Performed By: #### JOSE SERUM, SPE W INTERPRET, KAPPA #### [facility] , #### FE and TIBC, MG, TAYLOR, RENAL, PTH, [id number], CBCNO, URIC #### [facility] [address] [place] [address] USAProtein [Mass/Vol]6.1 g/dLNormal6.0-8.5The [facility] Physician GroupComment on above:Performed By: #### JOSE SERUM, SPE W INTERPRET, KAPPA #### [facility] , #### FE and TIBC, MG, TAYLOR, RENAL, PTH, [id number], CBCNO, URIC #### [facility] [address] [place] [id number] USASPE-InterpretationCommentNormal.The [facility] Physician GroupComment on above:Result Comment: Faint band in gamma region suspicious for monoclonal immunoglobulin. This band may represent a benign spike as seen in older people or could be a paraprotein as seen in Multiple Myeloma, Waldenstrom's Macroglobulinemia or Lymphoma. Depending on clinical circumstances, further diagnostic studies may include serum immunofixation or serum free light chain quantitation. Performed at: [facility] [address] [id number] Front Edger: Jozef Medina PhD, Phone: [phone] By: #### JOSE SERUM, SPE W INTERPRET, KAPPA #### [facility] , #### FE and TIBC, MG, TAYLOR, RENAL, PTH, [id number], CBCNO, URIC #### [facility] [address] [place] [id number] USASPE-NoteCommentNormal.The [facility] Physician GroupComment on above:Result Comment: Protein electrophoresis scan will follow via computer, mail, or duty engineer delivery.Performed By: #### JOSE SERUM, SPE W INTERPRET, KAPPA #### [facility] , #### FE and TIBC, MG, TAYLOR, RENAL, PTH, [id number], CBCNO, URIC #### [facility] [address] [place] [id number] USAProtein Creat Ratio Ur Randomon 94-85-5350Gyrytskwlt, Urine (Random)153.00 mg/dLNormalThe [facility] Physician GroupComment on above: Result Comment: No reference range establishedPerformed By: #### JOSE SERUM, SPE W INTERPRET, KAPPA #### [facility] , #### FE and TIBC, MG, TAYLOR, RENAL, PTH, [id number], CBCNO, URIC #### [facility] [address] [place] [id number] USAUrine Protein/Creatinine Hbrsf247 mg/g{Cre}Normal0-200The [facility] Physician GroupComment on above:Result Comment: PERFORMED BY: [place] [address] PATHOLOGIST AUTOMATIC QUILLING MACHINE OPERATOR CASSIDY CASIANO M.D.Performed By: #### JOSE SERUM, SPE W INTERPRET, KAPPA #### [facility] , #### FE and TIBC, MG, TAYLOR, RENAL, PTH, [id number], CBCNO, URIC #### [facility] [address] [place] [address] USAProtein Electrophoresis, Serumon 09-22-2024 Qiwab-8-Wodtpoai4.3 g/dLNormal0.0-0.4The [facility] Physician GroupComment on above:Performed By: #### JOSE SERUM, SPE W INTERPRET, KAPPA #### [facility] , #### FE and TIBC, MG, TAYLOR, RENAL, PTH, [id number], CBCNO, URIC #### [facility] [address] [place] [address] XVCUjgvq-3-Buafuade9.8 g/dLNormal0.4-1.0The [facility] Physician GroupComment on above:Performed By: #### JOSE SERUM, SPE W INTERPRET, KAPPA #### [facility] , #### FE and TIBC, MG, TAYLOR, RENAL, PTH, [id number], CBCNO, URIC #### [facility] [address] [place] [address] USABeta Globulin0.9 g/dLNormal0.7-1.3The [facility] Physician GroupComment on above:Performed By: #### JOSE SERUM, SPE W INTERPRET, KAPPA #### [facility] , #### FE and TIBC, MG, TAYLOR, RENAL, PTH, [id number], CBCNO, URIC #### [facility] [address] [place] [address] USAGamma Globulin0.9 g/dLNormal0.4-1.8The [facility] Physician GroupComment on above:Performed By: #### JOSE SERUM, SPE W INTERPRET, KAPPA #### [facility] , #### FE and TIBC, MG, TAYLOR, RENAL, PTH, [id number], CBCNO, URIC #### [place] [address] USAM-SpikeNot ObservedNormalNot ObservedThe [facility] Physician GroupComment on above:Performed By: #### JOSE SERUM, SPE W INTERPRET, KAPPA #### [facility] , #### FE and TIBC, MG, TAYLOR, RENAL, PTH, [id number], CBCNO, URIC #### [place] [address] USASPE-NoteCommentNormal.The [facility] Physician GroupComment on above:Result Comment: Protein electrophoresis scan will follow via computer, mail, or duty engineer delivery. Performed at: [address] [id number] Front Edger: Jozef Medina PhD, Phone: [phone] PERFORMED BY: [place] [address] PATHOLOGIST AUTOMATIC QUILLING MACHINE OPERATOR CASSIDY CASIANO M.D.Performed By: #### JOSE SERUM, SPE W INTERPRET, KAPPA #### [facility] , #### FE and TIBC, MG, TAYLOR, RENAL, PTH, [id number], CBCNO, URIC #### [place] [address] USAProtein Test strip (U) [Mass/Vol]Ordered By: Lizette Schaffer on 63-26-7035Wnfcroj (U) [Mass/Vol]NegativeNegativeMercy Health St. Joseph Warren HospitalProtein [Mass/volume] in UrineOrdered By: Lizette Schaffer on 78-64-5527Ewnwasq (U) [Mass/Vol]16 mg/dLHigh0-9Mer[facility] St. Joseph Warren HospitalComment on above: Performed By: #### JOSE SERUM, SPE W INTERPRET, KAPPA #### [facility] , #### FE and TIBC, MG, TAYLOR, RENAL, PTH, [id number], CBCNO, URIC #### [facility] [address] [place] [address] USARenal Function Panelon 72-68-6270Nlmkrxz [Mass/Vol]3.8 g/dLNormal3.5-5.7The [facility] Physician GroupComment on above:Performed By: #### JOSE SERUM, SPE W INTERPRET, KAPPA #### [facility] , #### FE and TIBC, MG, TAYLOR, RENAL, PTH, [id number], CBCNO, URIC #### [facility] [address] [place] [address] USAGFR/1.73 sq M.predicted MDRD (S/P/Bld) [Vol rate/Area] 22.480 mL/min/{1.73_m2}NormalThe [facility] Physician GroupComment on above: Performed By: #### JOSE SERUM, SPE W INTERPRET, KAPPA #### [facility] , #### FE and TIBC, MG, TAYLOR, RENAL, PTH, [id number], CBCNO, URIC #### [facility] [address] [place] [address] USASerum free kappa light chain measurementOrdered By: Lizette Schaffer on 00-18-9045Buwhheqeoqmsmq light chains.kappa.free (S) [Mass/Vol]46.0 mg/LHigh3.3-19.4FSelect Medical Specialty Hospital - Cincinnatierum globulin measurement (mass/volume)Ordered By: Lizette Schaffer on 72-52-8334Twioiodu (S) [Mass/Vol]2.8 g/dLNormal2.2-3.9[facility] Warren HospitalComment on above:Performed By: #### JOSE SERUM, SPE W INTERPRET, KAPPA #### [facility] , #### FE and TIBC, MG, TAYLOR, RENAL, PTH, [id number], CBCNO, URIC #### [facility] [address] [place] [address] USASerum immunoglobulin free kappa light chains/immunoglobulin free lambda light chainsOrdered By: Lizette Sarbjit on 53-50-9681Wgpdnwwitzkduf light chains.kappa.free/Immunoglobulin light chains.lambda.free (S) [Mass ratio]1.71Chkw5.26-1.65[facility]. Joseph Warren HospitalComment on above:Performed at: [employer] [id number] Director: Jozef Medina PhD, Phone: [phone] or plasma IgA measurement (mass/volume)Ordered By: Lizette Sarbjit on 43-01-9866RsL [Mass/Vol]184 mg/yZ14-148HlxsstmobZanesville City Hospitalerum or plasma IgG measurement (mass/volume)Ordered By: Lizette Sarbjit on 37-23-0192GdW [Mass/Vol]1018 mg/qE429-3637QprlfvtxnZanesville City Hospitalerum or plasma IgM measurement (mass/volume)Ordered By: Lizette Sarbjit on 09-18-3326MvJ [Mass/Vol]91 mg/uI80-[address] Joseph Warren HospitalComment on above:Performed at: [employer] [id number] Director: Jozef Medina PhD, Phone: [phone] or plasma albumin measurement (mass/volume)Ordered By: Lizette Sarbjit on 89-70-1621Jgijhuo [Mass/Vol]3.2 g/dLNormal2.9-4.4FRegency Hospital Cleveland WestComment on above:Performed By: #### JOSE SERUM, SPE W INTERPRET, KAPPA #### [facility] , #### FE and TIBC, MG, TAYLOR, RENAL, PTH, [id number], CBCNO, URIC #### [facility] [address] [place] [address] USASerum or plasma albumin/globulin mass ratioOrdered By: Lizette Sarbjit on 49-90-5444Waagyps/Globulin [Mass ratio]1.1 {ratio}Normal0.7-1.[address] Joseph Warren HospitalComment on above:Performed By: #### JOSE SERUM, SPE W INTERPRET, KAPPA #### [facility] , #### FE and TIBC, MG, TAYLOR, RENAL, PTH, [id number], CBCNO, URIC #### [facility] [address] [place] [address] USASerum or plasma alpha 1 globulin measurement by electrophoresis (mass/volume)Ordered By: Lizette Schaffer on 66-08-4360Slhri 1 globulin Elph [Mass/Vol]0.3 g/dL0.0-0.4FSelect Medical Specialty Hospital - Cincinnatierum or plasma alpha 2 globulin measurement by electrophoresis (mass/volume)Ordered By: Lizette Schaffer on 41-53-0208Sgadd 2 globulin Elph [Mass/Vol]0.8 g/dL0.4-1.0 Zanesville City Hospitalerum or plasma anion gap determinationOrdered By: Lizette Schaffer on 26-94-0756Ixomn gap [Moles/Vol]10.3 mmol/LNormal6.0-15.[address] [facility] Warren HospitalComment on above:Performed By: #### JOSE SERUM, SPE W INTERPRET, KAPPA #### [facility] , #### FE and TIBC, MG, TAYLOR, RENAL, PTH, [id number], CBCNO, URIC #### [facility] [address] [place] [address] USASerum or plasma beta globulin measurement by electrophoresis (mass/volume)Ordered By: Lizette Schaffer on 55-39-8323Whwz globulin Elph [Mass/Vol]0.9 g/dL0.7-1.3FSelect Medical Specialty Hospital - Cincinnatierum or plasma gamma globulin measurement by electrophoresis (mass/volume)Ordered By: Lizette Schaffer on 52-55-4001Dtsvu globulin Elph [Mass/Vol]0.9 g/dL0.4-1.8Zanesville City Hospitalerum or plasma immunoglobulin free lambda light chains measurement (mass/volume)Ordered By: Lizette Schaffer on 07-22-0681Uvsgwuwzhdnwvk light chains.lambda.free [Mass/Vol]25.9 mg/L5.7-26.3FSelect Medical Specialty Hospital - Cincinnatierum or plasma iron binding capacity measurement (mass/volume)Ordered By: Lizette Schaffer on 83-23-5647Tira binding capacity [Mass/Vol]245 ug/mDDoe741-881 [facility] City Hospitalerum or plasma iron saturation measurement (mass fraction)Ordered By: Lizette Schaffer on 45-82-7575Isqr saturation [Mass fraction]22.0 %20-50Zanesville City Hospitalerum total protein measurementOrdered By: Lizette Schaffer on 82-95-2109Gqclwxh [Mass/Vol]6.0 g/dLNormal 6.0-8.5FRegency Hospital Cleveland WestComment on above:Performed By: #### JOSE SERUM, SPE W INTERPRET, KAPPA #### [facility] , #### FE and TIBC, MG, TAYLOR, RENAL, PTH, [id number], CBCNO, URIC #### [facility] [address] [place] [id number] USASodium [Moles/volume] in Serum or PlasmaOrdered By: Lizette Schaffer on 79-82-4118Ahwsyg [Moles/Vol]138 mmol/XScieni406-190RzswgwxeaMercy Health St. Joseph Warren HospitalComment on above:Performed By: #### JOSE SERUM, SPE W INTERPRET, KAPPA #### [facility] , #### FE and TIBC, MG, TAYLOR, RENAL, PTH, [id number], CBCNO, URIC #### [facility] [address] [place] [address] USASpecific gravity Test strip (U) [Rel density]Ordered By: Lizette Schaffer on 75-26-1290Uwpdunxx gravity (U) [Rel density]1.0181.001-1.[address] [facility] Warren HospitalTransferrin [Mass/volume] in Serum or Plasma Ordered By: Lizette Schaffer on 20-21-0960Ouytgjehpfg [Mass/Vol]175 mg/iOLne814-[address] [facility] Warren HospitalComment on above:Performed By: #### JOSE SERUM, SPE W INTERPRET, KAPPA #### [facility] , #### FE and TIBC, MG, TAYLOR, RENAL, PTH, [id number], CBCNO, URIC #### [facility] [address] [place] [address] USAUrate [Mass/volume] in Serum or PlasmaOrdered By: Lizette Sarbjit on 45-41-3624Zafvy [Mass/Vol]7.9 mg/dLHigh2.3-6.6FRegency Hospital Cleveland WestComment on above:Performed By: #### JOSE SERUM, SPE W INTERPRET, KAPPA #### [facility] , #### FE and TIBC, MG, TAYLOR, RENAL, PTH, [id number], CBCNO, URIC #### [facility] [address] [place] [address] USAUrea nitrogen [Mass/volume] in Serum or PlasmaOrdered By: Lizette Sarbjit on 82-96-1001Mhwp nitrogen [Mass/Vol]40 mg/dLHigh7-25Mer[facility] St. Joseph Warren HospitalComment on above:Performed By: #### JOSE SERUM, SPE W INTERPRET, KAPPA #### [facility] , #### FE and TIBC, MG, TAYLOR, RENAL, PTH, [id number], CBCNO, URIC #### [facility] [address] [place] [address] USAUrine Cultureon 66-91-0493Odbtmlcv identified Cx Nom (U) <9,000 colonies/ml mixed bacterial skin contaminants 2 Days PERFORMED BY: [place] [address] PATHOLOGIST AUTOMATIC QUILLING MACHINE OPERATOR CASSIDY CASIANO M.D.[facility] Physician GroupComment on above: Performed By: #### JOSE SERUM, SPE W INTERPRET, KAPPA #### [facility] , #### FE and TIBC, MG, TAYLOR, RENAL, PTH, [id number], CBCNO, URIC #### [facility] [address] [place] [address] USAUrine cultureOrdered By: Lizette Connerdir on 79-36-6449Aoulllah identified Cx Nom (U)[address] Warren HospitalUrine protein/creatinine ratioOrdered By: Lizette Sarbjit on 60-11-2355Hjffdiv/Creatinine (U) [Ratio]105 mg/g{Cre}0-200[facility] Warren HospitalUrobilinogen Test strip (U) [Mass/Vol]Ordered By: Lizette Schaffer on 15-27-6021Mkqpkfwaofdy (U) [Mass/Vol]Normal mg/dLNormalMercy Health St. Joseph Warren HospitalVitamin D 25 Hydroxy Totalon 72-15-0221Foyczqp D 25 Hydroxy Total29.7 ng/uYYdj54-366Nlz [facility] Physician GroupComment on above:Result Comment: VITAMIN D STATUS 25(OH)VITAMIN D RANGE (ng/mL) Deficient <20 Insufficient 20 to <30 Sufficient 30 to 100 Reference: Jessica Rocha, Elizabeth LAMBERT, et al. Evaluation,treatment, and prevention of vitamin D deficiency; an Endocrine Society clinical practice guideline. JCEM. 2010; 96(7):1911-. PERFORMED BY: [facility] [address] [place] [address] PATHOLOGIST AUTOMATIC QUILLING MACHINE OPERATOR CASSIDY CASIANO M.D.Performed By: #### JOSE SERUM, SPE W INTERPRET, KAPPA #### [facility] , #### FE and TIBC, MG, TAYLOR, RENAL, PTH, [id number], CBCNO, URIC #### [facility] [address] [place] [address] USAVitamin D+Metabolites [Mass/volume] in Serum or Plasma Ordered By: Lizette Schaffer on 36-34-8623Urmvgkp D+Metabolites [Mass/Vol]29.7 ng/mL Nnb96-624HfoqkzdycMercy Health St. Joseph Warren HospitalComment on above:VITAMIN D STATUS 25(OH)VITAMIN D RANGE (ng/mL) Deficient <20 Insufficient 20 to <79Ihaluhluem56 to 100Reference: Jessica Rocha, Elizabeth LAMBERT, et al. Evaluation,treatment, and prevention of vitamin D deficiency; an Endocrine Society clinical practice guideline. JCEM. 2010; 96(7):191-.pH of Urine by Test stripOrdered By: Lizette Schaffer on 02-82-7154pQ (U)5.0 [pH]Normal5.0-9.[address] [facility] Warren HospitalComment on above:Order Comment: Name Collection Type:: Clean-Voided MidstreamPerformed By: #### JOSE SERUM, SPE W INTERPRET, KAPPA #### [facility] , #### FE and TIBC, MG, TAYLOR, RENAL, PTH, [id number], CBCNO, URIC #### [facility] [address] [place] [id number] USAAmbulatory Visit Summaryon 81-30-3316Cfuruuewgp Visit SummaryAmbulatory Visit Summary VERO SADLER :1950 Visit Date:08/21/2024 Ambulatory Visit Instructions Your Diagnosis Intrinsic sphincter deficiency (ISD) Stress incontinence Urge incontinence Kidney stones Former smoker Aspirin long-term use Your Care Team Attending Physician - BRYAN BELTRÁN, ROSETTA Primary Care Physician - Sriram BELTRÁN, Debbie This Is Your Medications List Contact prescribing [...] ROSETTA MENDEZ MD Where: [facility] [place] [address] [place] [address]- You Need to Schedule the Following Appointments [...] condition in w (more content not included)... [facility] HospitalUrology Office/Clinic Noteon 96-84-9361Culsphp Office/Clinic NoteUrology Office/Clinic Note Chief Complaint f/u to bulkamid [...] with voice recognition artificial intelligence software, specifically [employer], [employer] and or [employer]. Substitutions may have occurred due to the inherent limitations of voice recognition and artificial intelligence software. 1. Intrinsic sphincter deficiency (ISD) (N36.42: Intrinsic sphincter deficiency (ISD)) BBSQ 14 (23) ISD confirmed on exam 05/19/24. S/p Bulkamid 07/13/24. UA today shows trace leuks. PVR 0 mL. Pt very pleased with Bulkamid. No longer leaking with JOSE ANTONIO. Ptstates since the day of procedure everything has [...] or stones. 6. 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 No BTs. [...] for reassessment. Follow-up With When Contact Information ROSETTA MENDEZ MD, SASKIA Additional Instructions: 6 mos Patient Education Urinary Incontinence I, Federica Luna, personally scribed for Dr. Desai on 08/21/2024 11:06:37. . Documentation recorded by the scribeFederica, accurately reflects the services(s) I performed and decisions made by me. Authenticated by Dr. Alicia Hartmann on 08/21/2024 11:13:33. Problem List/Past Medical History [...] No qualifying data Pr (more content not included)...[facility] HospitalComment on above:Result Comment: Electronically Signed By: ROSETTA MENDEZ MD\.br\Date and Time Signed: 08/21/24 11:14 EDT\.br\Electronically Co- Signed By: Federica Luna\.br\Date and Time Co-Signed: 08/21/24 11:[address] Posterior fossa WO contraston 50-50-2039[address] [address] [address] Scan Report Signed Patient: VERO SADLER MR#: [id number] : 1950 Acct:[id number] Age/Sex: 74 / F ADM Date: 08/15/24 Loc: CT Attending Dr: John Mathews M.D. Ordering Physician: John Mathews M.D. Date of Service: 08/15/24 Procedure(s): CT int auditory canals w/o con Accession Number(s): [id number] cc: Debbie Bhatia M.D. [place] [id number] Patient Name: VERO SADLER MRN: [id number] date: 1950 Sex: F Assigned Patient Location: CT Current Patient Location: CT Accession/Order Number: [id number] Exam Date: 08/15/2024 14:47 Report Date: 08/15/2024 [...] Gutierrez M.D. 08/15/2024 2:51 PM Dictation Location: [place] [address] Electronically authenticated by: [id number] Y Date: 08/15/2024 14:51 Dictated By: Victor Manuel Gutierrez M.D. Signed By: 08/15/24 1454 DD/ 1451 TD/TT: Jewel Inspector:LORIHRadiology, Radiologist, - 08/15/2024 [place] [address] CT Scan Report Signed Patient: VERO SADLER MR#: [id number] : 1950 Acct:[id number] Age/Sex: 74 / F ADM Date: 08/15/24 Loc: CT Attending Dr: John Mathews M.D. Ordering Physician: John Mathews M.D. Date of Service: 08/15/24 Procedure(s): CT int auditory canals w/o con Accession Number(s): [id number] cc: Debbie Bhatia M.D. [facility] [place] [id number] Patient Name: VERO SADLER MRN: [id number] date: 1950 Sex: F Assigned Patient Location: CT Current Patient Location: CT Accession/Order Number: [id number] Exam Date: 08/15/2024 14:47 Report Date: 08/15/2024 [...] Gutierrez M.D. 08/15/2024 2:51 PM Dictation Location: [place] [address] Electronically authenticated by: [id number] Y Date: 08/15/2024 14:51 Dictated By: Victor Manuel Gutierrez M.D. Signed By: 08/15/24 1454 DD/ 1451 TD/TT: Jewel Inspector: GAVINO HealthcareRadiology Study observation (narrative)NOMS HealthcareCT Posterior fossa WO contrastOrdered By: Radiologist Radiology on 71-30-7726RQTW Healthcare Work Phone: Orders Onlyon [id number] [id number] Vero Sadler 1950 F Date Provider Department Center 08/11/2024 HalinaJOSEY WAGNER HVC CARD [facility] Family History Problem Relation Age of Onset Other Mother Coronary artery disease Mother Other Mother Other Mother Other Father Hypertension Father Hyperlipidemia Father Other Daughter Family Status - Relation Status Age at Mother Father DaughterNormalUniversavita health system [facility] SouthOrders [id number] Vero Sadler 1950 F Date Provider Department Center 08/11/2024 OLLIE HALLMAN HVC CARD [facility] Family History Problem Relation Age of Onset Other Mother Coronary artery disease Mother Other Mother Other Mother Other Father Hypertension Father Hyperlipidemia Father Other Daughter Family Status - Relation Status Age at Mother Father DaughterNormalUniversavita health [facility] SouthNo Panel InformationOrdered By: Kal Molina on 54-74-9420Wmnzawnrfppdm Pathology TestSee commentMercy Health St. Joseph Warren HospitalComment on above:See report. Scanned copy available in EMR.Pathology Request for Lab Corpon [id number] Request for Lab Louisa NormalThe [facility]ly [facility] Physician GroupComment on above:Order Comment: GI SPECIMEN Result Comment: See report. Scanned copy available in EMR. PERFORMED BY: [place] [address] PATHOLOGIST AUTOMATIC QUILLING MACHINE OPERATOR GENE BARRAGAN M.D.Performed By: #### JOSE SERUM, SPE W INTERPRET, KAPPA #### [facility] , #### FE and TIBC, MG, TAYLOR, RENAL, PTH, IJVE49DR, CBCNO, URIC #### [facility] [address] [place] [address] USAMain OR Intraoperative Recordon [id number] OR Intraoperative RecordMain OR Intraoperative Record IntraOp Document Type FT Summary Primary Physician: NKROSETTA FELICIANO MD Finalized Date/Time: 07/14/24 10:37:22 Pt. Name: VERO SADLER./Sex: 1950 Female Med Rec #: [id number] Physician: ROSETTA MENDEZ MD Financial #: [id number] Pt. 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 Last Modified By: Andrew Holly Ii, Alfons Ii F Letrondo, Alfons Ii F 07/13/24 09:22:03 07/13/24 09:22:03 07/13/24 09:22:03 Entry 4 Case Attendee Andrew Holly Ii Role Performed Restaurant Busser - Primary Time In 07/13/24 08:50:00 Time [...] and tissue Entry 1 Skin Integrity Intact, Eldridge, Warm, & Skin Abnormality No Dry Outcomes [...] Secured in Stirrup Posit (more content not included)...Normal [facility] CenterDischarge Instructionson [id number] InstructionsDischarge Instructions VERO SADLER :1950 Visit Date:07/13/2024 Inpatient [...] 12 hours Duration: 5 Days Pickup at [facility]/pharmacy #[id number] New phenazopyridine (Pyridium 100 mg Tab) 1 Tablets By Mouth 3 times a day Duration: 3 Days Pickup at [facility]/pharmacy #[id number] Unchanged albuterol (Albuterol (Eqv-ProAir HFA)) 2 [...] Mouth 2 times a day Pharmacy Information [facility]/pharmacy #[id number]: [address], [place] [id number] [phone] Allergies Adhesive Bandage (Hives) Education Materials Common [...] SYstem) Award is an international recognition program thathonors and celebrates the skillful, compassionate care nurses [...] signed up for this yet, please contact [employer] at [phone] to get signed up today. Patient Name: VERO SADLER I have received this information and my questions have been answered. 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 Name: VERO SADLER/Sex: 1950 Female Med Rec #: [id number] Physician: ROSETTA MENDEZ MD Financial #: [id number] Pt. Type: A Room/Bed: [place] [address] Admit/Disch: 07/13/24 07:02:16 - Institution: Case Times [...] individualized perioperative plan of care The patient's rightto privacy is maintained The patient's value system, [...] with or improved from baseline levels established preoperativelyThe patient's cardiovascular status is consistent with or improved from baseline levels established preoperatively The patient's cardiovascular status is consistent with or improved from baseline levels established preoperatively The patient demonstrates and/or reports adequate pain control throughout the perioperative period The patient received appropriate medication(s), safely administered during the perioperativeperiod Acuity Level PACU I FT Entry 1 Start Time 07/13/24 09:15:00 Stop Time 07/13/24 09:45:00 Acuity Level Acuity Level I Last Modified By: Orin Richmond RN 07/13/24 09:42:18 Finalized By: Orin Richmond RN Document Signatures Signed By: Orin Richmond RN 07/13/24 09:53[facility] HospitalMain OR PACU II Recordon [id number] OR PACU II RecordMain OR PACU II Record PACU Phase II Document Type FT Summary Primary Physician: ROSETTA MENDEZ MD Finalized Date/Time: 07/13/24 15:25:20 Pt. Name: VERO SADLER/Sex: 1950 Female Med Rec #: [id number] Physician: ROSETTA MENDEZ MD Financial #: [id number] Pt. Type: A Room/Bed: [place] [address] Admit/Disch: 07/13/24 07:02:16 - 07/13/24 11:00:00 Institution: [...] and monitors body temperature Evaluates postoperative respiratory statusEvaluates postoperative cardiac status Evaluates postoperative neurological status [...] individualized perioperative plan of care The patient's rightto privacy is maintained The patient's value system, [...] with or improved from baseline levels established preoperativelyThe patient's cardiovascular status is consistent with or improved from baseline levels established preoperatively The patient's neurological status is consistent with or improved from baseline levels established preoperatively The patient demonstrates and/or reports adequate pain control throughout the perioperative period The patient received appropriate medication(s), safely administered during the perioperativeperiod Finalized By: Patricia Garvin RN Document Signatures Signed By: Patricia Garvin RN 07/13/24 15:25[facility] HospitalMain OR Preoperative Recordon [id number] OR Preoperative RecordMain OR Preoperative Record PreOp Document Type FT Summary Primary Physician: ROSETTA MENDEZ MD Finalized Date/Time: 07/13/24 09:04:45 Pt. Name: VERO SADLER/Sex: 1950 Female Med Rec #: [id number] Physician: ROSETTA MENDEZ MD Financial #: [id number] Pt. Type: A Room/Bed: AS18 Admit/Disch: 07/13/24 07:02:16 - Institution: Case Times [...] Signatures Signed By: Andrew Holly Ii 07/13/24 09:04NoCleveland Clinic Medina HospitalOperative Reporton [id number] ReportOperative Report Patient: VERO SADLER Age: 74 years Sex: Female : 1950 Associated Diagnoses: None Author: ROSETTA MENDEZ MD Procedure SURGEON: Rosetta Mendez MD PREOPERATIVE DIAGNOSIS: Stress urinary incontinence with , intrinsic sphincter deficiency POSTOPERATIVE DIAGNOSIS: Same PROCEDURE: Cystoscopy, injection of urethral bulking agent CPT 16401 FINDINGS: Urethra injected at 4 units packed [...] Ancef was administered. She was then placed inthe dorsolithotomy position and prepped and draped in normal sterile fashion. Timeout was performedconfirming patient, procedure, side, all in the room agreed. At the start of the procedure, anaesthetic gel was added to the end rotatable Bulkamid sheath and the water inflow was adjusted to producean adequate stream. The Bulkamid Needle was then [...] retracted into the sheath and approximately 1.5cm fromthe bladder neck the Bulkamid system was pressed parallel against the urethral wall and the needle is then advanced into the submucosal tissue ensuring that the bevel of the needle was facing towardsthe lumen. The needle was advanced approximately 0.5cm, and the Bulkamid hydrogel was then injecteduntil the Bulkamid cushion was visible and reached [...] midline of the urethral lumen. 2mls Total ofBulkamid Hydrogel was used. Approximately 500cc of fluid was left in the bladder and upon completion, the patient emptied her bladder without issues. The procedure was well tolerated and EBL was minimal. Patient was given instruction to contact the office if she had any difficulty urinating and wasconsulted about the potential of a top up procedure if the desired effect was not achieved. Prophylactic antibiotics were prescribed, and a follow up appointment was scheduled to evaluate improvement. PLAN: F/U in 6 WEEKS. Needs to void before dcNormalUniversity [facility] Comment on above:Result Comment: Electronically Signed By: BRYAN BELTRÁN, ROSETTA\.br\Date and Time Signed: 07/13/24 10:17 EDTBMPon 28-16-9362Ppqlt gap [Moles/Vol]11 mmol/LNormal6-16[facility] CenterComment on above: Performed By: #### [id number] #### [facility] [address] [place], [place] [address]Vbqicub [Mass/Vol]9.1 mg/dLNormal8.9-11.1FLima City HospitalComment on above:Performed By: #### [id number] #### [facility] [address] [place], [place] [address]Wdchapfh [Moles/Vol]107 mmol/TGygqmc911-065QvayhrUniversity Hospitals Portage Medical CenterComment on above:Performed By: #### [id number] #### [facility] [address] [place], [place] [address]GS3 [Moles/Vol]26 mmol/RWryfmd65-29LmpmdqUniversity Hospitals Portage Medical Center Comment on above:Performed By: #### [id number] #### [facility] [address] [place], [place] [address]Ivkqmhzlks [Mass/Vol]1.6 mg/dLHigh0.5-1.3FLima City HospitalComment on above:Performed By: #### [id number] #### [facility] [address] [place], [place] [address]Hawuaky [Mass/Vol]91 mg/kVCjnpbq85-140SpzhurUniversity Hospitals Portage Medical CenterComment on above:Performed By: #### [id number] #### [facility] [address], [place] [address]Wcjyktbaq [Moles/Vol]4.7 mmol/LNormal3.5-5.3FLima City HospitalComment on above:Performed By: #### [id number] #### [facility] [address] [place], [place] [address]Imifiw [Moles/Vol]139 mmol/UQtseuc208-656NexogfUniversity Hospitals Portage Medical CenterComment on above:Performed By: #### [id number] #### [facility] [address] [place], [place] [address]Ouus nitrogen [Mass/Vol]24 mg/dLHigh5-21[facility] Medical CenterComment on above:Performed By: #### [id number] #### [facility] [address] [place] [address]Uuek nitrogen/Creatinine [Mass ratio]15 No NifzjHwrdjj22-01 [facility] CenterComment on above:Performed By: #### [id number] #### [facility] [address] [place] [address]ZYS w/ Auto Diffon 08-11-8017Psyakzqcs/100 WBC (Bld)1.2 %Normal 0.0-2.0[facility] CenterComment on above:Performed By: #### [id number] #### [facility] [address] [place] [address]Rowhxvvlb/Leukocytes Auto (Bld) [Pure # fraction]0.1 E9/LNormal 0.0-0.2FLima City HospitalComment on above:Performed By: #### [id number] #### [facility] [address] [place] [address]Ynmjuciterj (Bld) [#/Vol]0.1 E9/LNormal0.0-0.5FLima City HospitalComment on above:Performed By: #### [id number] #### [facility] [address] [place] [address]99[address]Rogvtvmztqy/100 WBC (Bld)1.6 %Normal0.0-8.0[facility] Medical CenterComment on above:Performed By: #### [id number] #### [facility] [address] [place] [address]Ibsizqqynom distribution width (RBC) [Ratio]14.6 %High10.9-14.2 [facility] CenterComment on above:Performed By: #### [id number] #### [facility] [address] [place] [address]22[address]Syvggxngnq (Bld) [Volume fraction]34.0 %Ghiqgp86.0-46.0[facility] CenterComment on above:Performed By: #### [id number] #### [facility] [address] [place] [address]39[address]Bqloqopddn (Bld) [Mass/Vol]11.2 g/dLLow12.0-16.0[facility] CenterComment on above:Performed By: #### [id number] #### [facility] [address] [place] [address]38[address]Loaechsbjhf (Bld) [#/Vol]1.2 E9/LNormal1.0-4.0[facility] CenterComment on above:Performed By: #### [id number] #### [facility] [address] [place], [place] [address]Ummiqaafqvj/100 WBC (Bld)15.1 %Qsrzwj58.0-50.0[facility] CenterComment on above:Performed By: #### [id number] #### [facility] [address] [place] [address]COW (RBC) [Entitic mass]29.3 ttMqieit31.0-34.0[facility] CenterComment on above:Performed By: #### [id number] #### [facility] [address] [place] [address]IPQZ (RBC) [Mass/Vol]32.9 g/pXSkrjks56.4-36.0[facility] CenterComment on above:Performed By: #### [id number] #### [facility] [address] [place] [address] 79[address]DDX (RBC) [Entitic vol]89.0 kJSfbape98.0-100.0[facility] CenterComment on above:Performed By: #### [id number] #### [facility] [address] [place] [address]Ulepgnsvb (Bld) [#/Vol]0.9 E9/LNormal0.2-1.0[facility] CenterComment on above:Performed By: #### [id number] #### [facility] [address] [place] [address]Jbzxfxorqog (Bld) [#/Vol]5.3 E9/LNormal2.0-7.5FLima City HospitalComment on above:Performed By: #### [id number] #### [facility] [address] [place] [address]14[address]Mzgojxpphwo/100 WBC (Bld)69.9 %Kmvnqh91.0-75.0[facility] CenterComment on above:Performed By: #### [id number] #### [facility] [address] [place] [address]Sqqovofl169.0 E9/XMirwwm824.0-500.0[facility] Comment on above:Performed By: #### [id number] #### [facility] [address] [place] [address]Wqhsfhuv mean volume (Bld) [Entitic vol]7.6 fLNormal6.4-10.8 [facility] CenterComment on above:Performed By: #### [id number] #### [facility] [address] [place] [address]RHC (Bld) [#/Vol]3.8 E12/LLow4.3-5.9[facility] Comment on above:Performed By: #### [id number] #### [facility] [address] [place] [address]QVI corrected for nucl RBC Auto (Bld) [#/Vol]7.6 E9/LNormal 4.0-11.0[facility] CenterComment on above:Performed By: #### [id number] #### [facility] [address] [place] [address]ORK APTTon 81-44-4146fTFY Coag (Bld) [Time]29.3 sNOMS HealthcareCHEMISTRYOrdered By: SYSTEM SYSTEM on 74-74-8341Wkdvz gap [Moles/Vol] 11 mmol/LNormal6 - 16 mEq/LRemisol ChemCalcium [Mass/Vol]9.1 mg/dLNormal8.9 - 11.1 mg/dLRemisol ChemChloride [Moles/Vol]107 mmol/XMkislu291 - 111 mmol/L Remisol ChemCO2 [Moles/Vol]26 mmol/KHnjeni24 - 31 mmol/LRemisol ChemCreatinine [Mass/Vol]1.6 mg/dLHigh0.5 - 1.3 mg/dLRemisol UkukmLYB97 mL/min/1.73 m2Low >=59mL/min/1.73 w4Rdgqmzg ChemGlucose [Mass/Vol]91 mg/lNPtxkjm53 - 199 mg/dL Remisol ChemPotassium [Moles/Vol]4.7 mmol/LNormal3.5 - 5.3 mmol/LRemisol Chem Sodium [Moles/Vol]139 mmol/ECjanyi492 - 145 mmol/LRemisol ChemUrea nitrogen [Mass/Vol]24 mg/dLHigh5 - 21 mg/dLRemisol ChemUrea nitrogen/Creatinine [Mass ratio]15 mg/cgEpymtt22 - 20Remisol ChemCOAGULATIONOrdered By: Jennifer Gross on 13-47-7027zSMV Coag (PPP) [Time]34.6 aXeohhi50.1 - 36.5 second(s)[facility]ag Comment on above:Interpretive Data: Parameter 15 days - 4 weeks 1 [...] the same coagulation reagent and instrumentation as [facility]. Currently there are no coagulation studies available worldwide for children to 14 days, andno normal ranges. Heparin therapeutic range (represented by Anti-Factor Xa activity of 0.2 - 0.4 U/mL) corresponds to PTT of 56.6 - 109.0 sec.INR Coag (PPP) [Relative time]1.16 {INR}Invalid Interpretation CodeOKEENE MUNICIPAL [facility]OS[facility] [place] Auto CoagComment on above:Interpretive Data: INR results are specifically intended to assess patients stabilized on long-term Anticoagulation therapy suggested INR s Less Intensive Anticoagulation 2.0 3.0 Conventional Range 3.0 4.5PT Coag (PPP) [Time]13.0 sHigh9.4 - 12.5 second(s)[facility] Auto CoagComment on above:Interpretive Data: 15 days - 4 weeks 1 - [...] the same coagulation reagent and instrumentation as [facility]. Currently there are no coagulation studies available worldwide for children to 14 days, andno normal ranges.HEMATOLOGYOrdered By: SYSTEM SYSTEM on 14-02-5273Jyrynphlv/100 WBC (Bld)1.2 %Normal0.0 - 2.0 %Remisol HemeBasophils/Leukocytes Auto (Bld) [Pure # fraction]0.1 E9/LNormal0.0 - 0.2 E9/LRemisol HemeEosinophils (Bld) [#/Vol]0.1 E9/LNormal0.0 - 0.5 E9/LRemisol HemeEosinophils/100 WBC (Bld)1.6 %Normal0.0 - 8.0 %Remisol HemeErythrocyte distribution width (RBC) [Ratio]14.6 %High10.9 - 14.2 %Remisol HemeHematocrit (Bld) [Volume fraction]34.0 %Ncujyh29.0 - 46.0 % Remisol HemeHemoglobin (Bld) [Mass/Vol]11.2 g/dLLow12.0 - 16.0 gm/dLRemisol Heme Lymphocytes (Bld) [#/Vol]1.2 E9/LNormal1.0 - 4.0 E9/LRemisol HemeLymphocytes/100 WBC (Bld)15.1 %Xiljhx69.0 - 50.0 %Remisol HemeMCH (RBC) [Entitic mass]29.3 pg Bejdsj38.0 - 34.0 pgRemisol HemeMCHC (RBC) [Mass/Vol]32.9 g/dJRwjxeq23.4 - 36.0 gm/dLRemisol HemeMCV (RBC) [Entitic vol]89.0 aKTrofre35.0 - 100.0 fLRemisol Heme Monocytes (Bld) [#/Vol]0.9 E9/LNormal0.2 - 1.0 E9/LRemisol HemeMonocytes/100 WBC (Bld)12.2 %Normal4.0 - 14.0 %Remisol HemeNeutrophils (Bld) [#/Vol]5.3 E9/L Normal2.0 - 7.5 E9/LRemisol HemeNeutrophils/100 WBC (Bld)69.9 %Obdkbj81.0 - 75.0 %Remisol WzzlIkjhuial555.0 E9/EGswhbp844.0 - 500.0 E9/LRemisol HemePlatelet mean volume (Bld) [Entitic vol]7.6 fLNormal6.4 - 10.8 fLRemisol HemeRBC (Bld) [#/Vol]3.8 E12/LLow4.3 - 5.9 E12/LRemisol HemeWBC corrected for nucl RBC Auto (Bld) [#/Vol]7.6 E9/LNormal4.0 - 11.0 E9/LRemisol HemeNo Panel Informationon 33-97-3727LDDDAJHQNADJZ HealthcarePT & PTTon 80-42-3706mXFY Coag (PPP) [Time] 34.6 second(s)Lsicdw44.1-36.5[facility] CenterComment on above:Result Comment: Parameter 15 days - 4 weeks [...] the same coagulation reagent and instrumentation as [facility]. Currently there are no coagulation studies available worldwide for children to 14 days, andno normal ranges. Heparin therapeutic range (represented by Anti-Factor Xa activity of 0.2 - 0.4 U/mL) corresponds to PTT of 56.6 - 109.0 sec.Performed By: #### [id number] #### [facility] [address] [place], [place] [address]RNQ Coag (PPP) [Relative time]1.16 {INR}Invalid Interpretation CodeUniversity Hospitals Portage Medical CenterComment on above:Result Comment: INR results are specifically intended to assess patients stabilized on long-term Anticoagulation therapy suggested INR???s ???Less Intensive Anticoagulation??? 2.0 ??? 3.0 Conventional Range 3.0 ??? 4.5Performed By: #### [id number] #### [facility] [address] [place], [place] [address]AK Coag (PPP) [Time]13.0 second(s)High9.4-12.5[facility] CenterComment on above:Result Comment: 15 days - 4 weeks 1 - 5 months 6 -11 months 1 ??? 5 years 6 ??? 10 years 11 -17 years Mean: 11.2 (9.5 ??? 12.6) Mean: 11.0 (9.7 ??? 12.8) Mean: 11.0 (9.8 ??? 13.0) Mean: 11.3 (9.9 ??? 13.4) Mean: 11.7 (10.0 ??? 14.6) Mean: 11.8 (10.0 - 14.1) Pediatric Reference ranges were obtained from a study by teresa Nolasco. prepared from 1437 samples obtained at 7 different centers using the same coagulation reagent and instrumentation as [facility]. Currently there are no coagulation studies available worldwide for children to 14 days, andno normal ranges.Performed By: #### [id number] #### [facility] [address] [place], [place] [address]WSMBND PROTHROMBIN TIME INR W/O COUMon 56-43-9649WS Coag (PPP) [Time]11.4 sNOMS HealthcareTBH INR1.08NOMS HealthcareComment on above:DESIRED INR: 2.0-3.0 CONDITIONS NOT LISTED BELOW 2.5-3.5 FOR PROSTHETIC HEART VALVE REPLACEMENT 2.5-3.5 RECURRENT THROMBOSIS UA with Cult Rflxon 13-21-7111Shvpkhhrx Ql (U)NegativeNormalNegativeUniversity Hospitals Portage Medical CenterComment on above:Performed By: #### [id number] #### [facility] [address], [place] [address]Ynliuvm (U)ClearNormalClearUniversity Hospitals Portage Medical CenterComment on above:Performed By: #### [id number] #### [facility] [address] [place] [address]Hipnk (U)YellowNormalYellowUniversity Hospitals Portage Medical CenterComment on above:Result Comment: Microscopic readings are only performed on those samples that meet specific criteria set forth by [facility].Performed By: #### [id number] #### [facility] [address] [place] [address]32[address]Hyzfliz Ql (U)NegativeNormalNegMercy Health [facility]rbana Hospital Comment on above:Performed By: #### [id number] #### [facility] [address], [place] [address]Mubyoyentn Auto test strip (U) [Mass/Vol]NegativeNormalNegative [facility] CenterComment on above:Performed By: #### [id number] #### [facility] [address], [place] [address]Dygulub Auto test strip Ql (U)NegativeNormalNegativeUniversity Hospitals Portage Medical CenterComment on above:Performed By: #### [id number] #### [facility] [address], [place] [address]Hsgwmvguk esterase Auto test strip Ql (U)NegativeNormalNegative [facility] CenterComment on above:Performed By: #### [id number] #### [facility] [address] [place] [address]Ieyzqwh Auto test strip Ql (U)NegativeNormalNegativeUniversity Hospitals Portage Medical CenterComment on above:Performed By: #### [id number] #### [facility] [address] [place] [address] 51534kS (U)5.0 [pH]Invalid Interpretation Code5.0-9.0[facility] Medical CenterComment on above:Performed By: #### [id number] #### [facility] [address] [place] [address] 32027Gjlznac Ql (U)TraceAbnormalNegativeUniversity Hospitals Port[facility] Center Comment on above:Performed By: #### [id number] #### [facility] [address] [place] [address] 25150Ffsdnnry gravity (U) [Rel density]1.016Invalid Interpretation Code1.005-1.030[facility] Medical CenterComment on above:Performed By: #### [id number] #### [facility] [address] [place] [address] 85667Wyiunbsnmzzk (U) [Mass/Vol]NegativeNormalNegativeUniversity Hospitals Portage Medical CenterComment on above:Performed By: #### [id number] #### [facility] [address] [place] [address] 07377Irow of Urine collection methodClean CatchNormMercy HospitalComment on above:Performed By: #### [id number] #### [facility] [address] [place] [address] 35699NXSODGGIYESctdluc By: SYSTEM SYSTEM on 19-83-9797Hgpnrvrna Ql (U)NegativeNormalNegativemg/dLFTMC UA Auto SSClarity (U)Clear (06/26/24 1:56 PM)NormalClearFTMC UA Auto SSColor (U)Yellow 1 (4/14/25 1:56 PM)NormalYellowOKEENE M[facility] [place] UA Auto SSComment on above:Interpretive Data: Microscopic readings are only performed on those samples that meet specific criteria set forth by [facility].Glucose Ql (U) NegativeNormalNegativemg/dLOKEENE M[facility]IP[facility] [place] UA Auto SSHemoglobin Auto test strip (U) [Mass/Vol]NegativeNormalNegativemg/dLOKEENE M[facility]IP[facility] [place] [facility] Auto SSKetones Auto test strip Ql (U)NegativeNormalNegativemg/dLOKEENE [facility] [place] [facility] Auto SSLeukocyte esterase Auto test strip Ql (U)NegativeNormalNegativeLeu/uLOKEENE [facility] [place] [facility] Auto SSNitrite Auto test strip Ql (U) NegativeNormalNegativemg/dLOKEENE [facility] [place] [facility] Auto SSpH (U)5.0 *NA* (06/26/24 1:56 PM)Invalid Interpretation Code5.0 - 9.0[facility] [place] [facility] Auto SSProtein Ql (U)Trace mg/dLInvalid Interpretation CodeNegativemg/dLOKEENE M[facility] [place] [facility] Auto SSSpecific gravity (U) [Rel density]1.016 *NA* (06/26/24 1:56 PM)Invalid Interpretation Code1.005 - 1.030[facility] Auto SS Urobilinogen (U) [Mass/Vol]NegativeNormalNegativemg/dLOKEENE [facility] [place] [facility] Auto SSURINALYSIS Ordered By: Sheri Roberts on 21-95-2057HI Spec DescClean Catch (06/26/24 1:56 PM)NormalOKEENE MUNICIPAL [facility] [place] UA Auto SSeGFRon 78-83-3231aTPN78 mL/min/1.73 m2Low >=59[facility] Medical CenterComment on above:Performed By: #### [id number] ####[facility] [address] [place] [address] Albumin [Mass/volume] in Serum or Plasmaon 92-70-5251Ymossna [Mass/Vol]Albumin [Mass/volume] in Serum or Plasma2.9-4.4FRegency Hospital Cleveland WestIgA [Mass/volume] in Serum or Plasmaon 00-27-2893OfX [Mass/Vol]IgA [Mass/volume] in Serum or Jcunlk78-312TmflbvdqmMercy Health St. Joseph Warren HospitalIgG [Mass/volume] in Serum or Plasmaon 11-52-9030XkN [Mass/Vol]IgG [Mass/volume] in Serum or Plasma 586-1602Mercy Health St. Joseph Warren HospitalIgM [Mass/volume] in Serum or Plasmaon 18-46-1478KgT [Mass/Vol]IgM [Mass/volume] in Serum or Ixbcbr93-932LqbrrcsfpMercy Health St. Joseph Warren HospitalImmunofixation for Urineon 58-46-7956Rsqonjbyetrpmb Immunofixation (U) [Interp]Immunofixation for Urine.[facility]. [facility] Warren HospitalComment on above:No monoclonality detected.Performed at: [employer] [id number] Director: Jozef Medina PhD, Phone: [phone] light chains.kappa.free [Mass/volume] in Serum on 85-76-0124Vqgarftrhrvsma light chains.kappa.free (S) [Mass/Vol]Immunoglobulin light chains.kappa.free [Mass/volume] in SerumAbnormal3.3-19.4FRegency Hospital Cleveland WestImmunoglobulin light chains.kappa.free/Immunoglobulin light chains.lambda.free [Alexandra 50-28-2342Ldciboyzeidcmz light chains.kappa.free/Immunoglobulin light chains.lambda.free (S) [Mass ratio] Immunoglobulin light chains.kappa.free/Immunoglobulin light chains.lambda.free [MassAbnormal0.26-1.65Mer[facility] St. Joseph Warren HospitalComment on above: Performed at: [employer] [id number] Director: Jozef Medina PhD, Phone: [phone] light chains.lambda.free [Mass/volume] in Serum or Plasmaon 54-54-2208Ckixcijzkvabxo light chains.lambda.free [Mass/Vol]Immunoglobulin light chains.lambda.free [Mass/volume] in Serum or PlasmaAbnormal5.7-26.3FRegency Hospital Cleveland WestIron binding capacity [Mass/volume] in Serum or Plasmaon 88-66-5564Rvwt binding capacity [Mass/Vol]Iron binding capacity [Mass/volume] in Serum or DjahcmWjj723.0-450.0[facility]. Joseph Warren HospitalIron saturation [Mass Fraction] in Serum or Plasmaon 44-41-9653Lkpd saturation [Mass fraction]Iron saturation [Mass Fraction] in Serum or PlasmaMercy Health St. Joseph Warren Hospital Laboratory - Chemistry and Chemistry - challengeon 49-52-9060Basqcvkj [Mass/Vol] 147.0 ng/mL8.0-252.0[facility]. Joseph Warren HospitalIron [Mass/Vol]51.0 ug/dL 50.0-170.0[facility] Warren HospitalMagnesium [Mass/Vol]1.6 mg/dLLow 1.8-2.4FRegency Hospital Cleveland WestUrate [Mass/Vol]8.0 mg/dLHigh2.6-6.[address] [facility] HospitalLaboratory - Urinalysison 98-58-0968Jzinkxw (U) [Mass/Vol]30.4 mg/dLHigh<=11.9[facility] Joseph Warren HospitalNo Panel Informationon 775044-Lojkwmk Vitamin D Total37.9 ng/mLMercy Health St. Joseph Warren HospitalComment on above:<20 ng/mL Vit D dgenkgdfm78-<30 ng/mL Vit D ymclbrtfxzur59-461 ng/mL Vit D sufficient>100 ng/mL Potential Toxicity Parathyroid Hormone (Intact)43 pg/yG93-38HcmintqxjMercy Health St. Joseph Warren Hospital Comment on above:Performed at: [facility] [place] [id number] Director: Jozef Medina PhD, Phone: [phone] Level 3.7 mg/dL2.6-4.7FRegency Hospital Cleveland WestProtein Electrophoresis M-Benjy Comment: g/dLNot ObservedMercy Health St. Joseph Warren HospitalComment on above:SPE shows an asymmetrical gamma.Protein Electrophoresis NoteComment.[facility]. Joseph Warren HospitalComment on above:Protein electrophoresis scan will follow via computer,mail, or duty engineer delivery.Urine Random Bsroapurax206.97 mg/dL 20.00-300.00Mer[facility] St. Joseph Warren HospitalProtein [Mass/volume] in Serum or Plasmaon 17-25-5453Nnqxewo [Mass/Vol]Protein [Mass/volume] in Serum or Plasma 6.0-8.5FSelect Medical Specialty Hospital - Cincinnatierum globulin measurement (mass/volume) on 99-94-0605Iizxwfwt (S) [Mass/Vol]Serum globulin measurement (mass/volume) 2.2-3.9[facility] City Hospitalerum or plasma albumin/globulin mass ratioon 80-17-7063Gnplrap/Globulin [Mass ratio]Serum or plasma albumin/globulin mass ratio0.7-1.7FSelect Medical Specialty Hospital - Cincinnatierum or plasma alpha 1 globulin measurement by electrophoresis (mass/volume)on 54-36-3042Ghjpq 1 globulin Elph [Mass/Vol]Serum or plasma alpha 1 globulin measurement by electrophoresis (mass/volume)0.0-0.4FSelect Medical Specialty Hospital - Cincinnatierum or plasma alpha 2 globulin measurement by electrophoresis (mass/volume)on 45-28-7814Uyaqg 2 globulin Elph [Mass/Vol]Serum or plasma alpha 2 globulin measurement by electrophoresis (mass/volume)0.4-1.0[facility] City Hospitalerum or plasma beta globulin measurement by electrophoresis (mass/volume) on 80-45-1902Teba globulin Elph [Mass/Vol]Serum or plasma beta globulin measurement by electrophoresis (mass/volume)0.7-1.3FSelect Medical Specialty Hospital - Cincinnatierum or plasma gamma globulin measurement by electrophoresis (mass/volume)on 13-10-7248Jtggr globulin Elph [Mass/Vol]Serum or plasma gamma globulin measurement by electrophoresis (mass/volume)0.4-1.8[facility] City Hospitalerum or plasma immunoelectrophoresis interpretationon 06-20-2024 Interpretation IEP [Interp]Serum or plasma immunoelectrophoresis interpretation. [facility] Joseph Warren HospitalComment on above:Presence of monoclonal protein is unclear at this time. Suggestrepeat in 3 to 6 months if clinically indicated.Urine protein/creatinine ratioon 52-39-9428Jvplwti/Creatinine (U) [Ratio]Urine protein/creatinine ratioMercy Health St. Joseph Warren HospitalUrology Office/Clinic Noteon 13-85-3285Yqvyete Office/Clinic NoteUrology Office/Clinic Note Chief Complaint Cysto HPI Staff [...] proceed with botox. Pt elects to proceed withbulkamid. Will schedule Bulkamid. The risks and benefits for cystoscopy have been discussed. The risks include bleeding, infection, and irritation of the bladder and urinary channel, among others. The patient,after being informed of procedural details and after questions have been answered, wishes to proceed. Full informed consent has been obtained. Will order Mac anesthesia. 2. Kidney stones (N20.0: Calculus of kidney) US renal bladder 02/14/24 - No hydro. 4 mm LMP lesion and 9 mm LIP lesion. Most likely renal stones. 3. 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 [2] Increased risk for UCC. 4. Aspirin long-term use (Z79.82: half-way (current) use of aspirin) ASA. No BTs. Has pacemaker. Hx of NE but was asx, not sure when it happened. [3] Objective demonstration of stress urinary incontinence today on exam. We discussed with her that she would benefit from cystoscopy, Bulkamid injection. She will follow-up for the procedure. Follow-up With When Contact Information ROSETTA MENDEZ MD, URL Additional Instructions: schedule Bulkamid Patient Education Jericho Peralta I, Elvi Posadas, personally scribed for Dr. Rosetta Mendez on 05/19/2024 09:01:12. . Portions of this record may have been created with voice recognition artificial intelligence software, specifically [employer], [employer] and or [employer]. Substitutions may have occurred due to the inherent limitations of voice recognition and artificial intelligence software. Documentation recorded by the scribe, Elvi Posadas, accurately reflects the services(s) I performed and decisions made by me. Authenticated by Dr. Alicia Hartmann on 05/19/2024 09:39:50. Problem List/Past Medical History [...] nodules Pulmonary hypertension Spina (more content not included)...[facility] HospitalComment on above:Result Comment: Electronically Signed By: ROSETTA MENDEZ MD\.br\Date and Time Signed: 05/19/24 09:40 EST\.br\Electronically Co- Signed By: Elvi Posadas.br\Date and Time Co-Signed: 05/19/24 09:01 EST Office Visiton 18-21-4516Zdbwil-up [id number] Vero Sadler 1950 F Date Provider Department Center 05/09/2024 JOSEY ARNOLD [facility] Family History Problem Relation Age of Onset Other Mother Coronary artery disease Mother Other Mother Other Mother Other Father Hypertension Father Hyperlipidemia Father Other Daughter Family Status - Relation Status Age at Mother Father Daughter Level of Service:14161 OR OFFICE/OUTPATIENT ESTABLISHED LOW MDM 20 [facility] CenterXR Sinuses 3 Viewson 34-33-65[place], [place] [address] XRay Report Signed Patient: VERO SADLER MR#: [id number] : 1950 Acct:[id number] Age/Sex: 74 / F ADM Date: 05/09/24 Loc: RAD Attending Dr: John Mathews M.D. Ordering Physician: John Mathews M.D. Date of Service: 05/09/24 Procedure(s): XR sinus min 3V Accession Number(s): [id number] cc: Debbie Bhatia M.D.; John Mathews M.D. [place] [id number] Patient Name: VERO SADLER MRN: [id number] date: 1950 Sex: F Assigned Patient Location: RAD Current Patient Location: RAD Accession/Order Number: [id number] Exam Date: 05/09/2024 12:47 Report Date: 05/09/2024 [...] Kelly Lao M.D.05/09/2024 12:54 PM Dictation Location: [place] [address] Electronically authenticated by: [id number] Y Date: 05/09/2024 12:54 Dictated By: Kelly Lao M.D. Signed By: 05/09/24 1257 DD/ 1254 TD/TT: Jewel Inspector:LORIHRadiology, Radiologist, - 05/09/2024 [place] [address] XRay Report Signed Patient: VERO SADLER MR#: [id number] : 1950 Acct:[id number] Age/Sex: 74 / F ADM Date: 05/09/24 Loc: RAD Attending Dr: John Mathews M.D. Ordering Physician: John Mathews M.D. Date of Service: 05/09/24 Procedure(s): XR sinus min 3V Accession Number(s): [id number] cc: Debbie Bhatia M.D.; John Mathews M.D. [place] [id number] Patient Name: VERO SADLER MRN: [id number] date: 1950 Sex: F Assigned Patient Location: [facility] Current Patient Location: [facility] Accession/Order Number: [id number] Exam Date: 05/09/2024 12:47 Report Date: 05/09/2024 [...] Kelly Lao M.D.05/09/2024 12:54 PM Dictation Location: [place] [address] Electronically authenticated by: [id number] Y Date: 05/09/2024 12:54 Dictated By: Kelly Lao M.D. Signed By: 05/09/24 1257 DD/ 1254 TD/TT: Jewel Inspector: GAVINO HealthcareRadiology Study observation (narrative)[facility] HealthcareXR Sinuses 3 ViewsOrdered By: Radiologist Radiology on 78-21-1077VNBL Healthcare Work Phone: ambulatory Visit Summaryon 26-02-0189Ksbvxfuqhr Visit SummaryAmbulatory Visit Summary VERO SADLER :1950 Visit Date:03/31/2024 [...] 1 Tablets By Mouth Every day Contact prescribingphysician if questions or concerns Allergies Adhesive Bandage [...] You may receive a (more content not included)...[facility] HospitalUrology Office/Clinic Noteon 78-17-5762Vepagth Office/Clinic NoteUrology Office/Clinic Note Chief Complaint New Pt HPI Staff Vero is a 74 year old female new pt referred by Debbie Bhatia for bladder prolapse. US renal bladder on 04/28/23 findings chronic kidney disease, poss lt sided nephrolithiasis Pt states she has recurrent UTI, she feels like she has one today. Pt had UTI about 10-12 weeks wasgiven Keflex Dysuria: denies Incomplete bladder emptying: yes [...] informed of procedural details and after questions havebeen answered, wishes to proceed. Full informed consent [...] gross hematuria. 4. 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 No BTs. [...] We will then proceed with cystoscopy, Bulkamid injection.She understands this and we will proceed as [...] with voice recognition artificial intelligence software, specifically [employer], [employer] and or [employer]. Substitutions may have occurred due to the inherent limitations of voice recognition and artificial intelligence software. Documentation recorded by the scribe, Elvi Posadas, accurately reflects the services(s) I performed and decisions made by me. Authenticated by Dr. Alicia Hartmann on 03/31/2024 15:12:01. Problem List/Past Medical History Ongoing Aspirin long-term use Atrial fibrillation Bradycardia CAD (coronary artery disease) Chronic kidney disease due t (more content not included)...[facility] HospitalComment on above:Result Comment: Electronically Signed By: ROSETTA MENDEZ MD\.br\Date and Time Signed: 03/31/24 15:13 EST\.br\Electronically Co-Signed By: Elvi Posadas\.br\Date and Time Co- Signed: 03/31/24 15:10 EST\.br\Electronically Co-Signed By: Elvi Posadas\.br\Date and Time Co-Signed: 03/31/24 15:10 ESTOffice Visiton 01-26-2024 Follow-up [id number] Vero Sadler Shamika 1950 F Date Provider Department Center 01/26/2024 271-TATO SALCIDO NATHANIEL Reyes Family History Problem Relation Age of Onset Other Mother Coronary artery disease Mother Other Mother Other Mother Other Father Hypertension Father Hyperlipidemia Father Other Daughter Family Status - Relation Status Age at Mother Father Daughter Level of Service:30631 OR OFFICE/OUTPATIENT ESTABLISHED LOW MDM 20 [facility] CenterMR LUMBAR SPINE WO CONTRASTon 71-21-1792LD LUMBAR SPINE WO CONTRASTMR LUMBAR SPINE WO CONTRAST 11/23/2023 12:56 PM [...] neural foraminal narrowing. Electronically signed: Arnol Cutler MD.[facility] Comment on above:Order Comment: ORDER IN EPICNURSNOTEon 68-00-2491HCLFQCEFOfvga from [employer] Healthcareronic prepped pacemaker. Patient verbalizes no issues with device. Monitor hooked up for continuous patient monitoring throughout the scan. [facility] Main CampusCBC AUTO DIFFon 65-17-8509VJBI #0.0 103/ulNormal0.0-0.1[facility] HospitalComment on above:Performed By: #### CBC #### [facility] [address] [place] [address] [address] Eusebia Longsophils/100 WBC (Bld)0.6 %Normal0.2-2.0[facility] Comment on above:Performed By: #### CBC #### [facility] [address] [place] [address] [address] Eusebia Carlton #0.2 103/ulNormal0.0-0.7The [facility] CenterComment on above: Performed By: #### CBC #### [facility] [address] [place] [address] [address] Eusebia Dunlaposinophils/100 WBC (Bld)2.2 %Normal0.9-7.0[facility] Comment on above:Performed By: #### CBC #### [facility] [address] [place] [address] Dr. Eusebia Dunlaprythrocyte distribution width (RBC) [Ratio]13.0 %Cmtggn78.0-15.0 The [facility] CenterComment on above:Performed By: #### CBC #### [facility] [address] [place] [address] Dr. Eusebia MoralezHematocrit (Bld) [Volume fraction]40.5 %Nfqrot39.0-48.0The [facility] HospitalComment on above:Performed By: #### CBC #### [facility] [address] [place] [address] Dr. Eusebia MoralezHemoglobin (Bld) [Mass/Vol]12.7 g/tPKzloga97.0-16.0The [facility] CenterComment on above:Performed By: #### CBC #### [facility] [address] [place] [address] Dr. Eusebia Pagan #0.02 10e3/ulNormal0.00-0.03The [facility] CenterComment on above:Performed By: #### CBC #### [facility] [address] [place] [address] Dr. Eusebia Pagan %0.3 %Normal0.0-0.5The [facility] CenterComment on above: Performed By: #### CBC #### [facility] [address] [place] [address] Dr. Eusebia PoloH #1.4 103/ulNormal1.2-3.8The [facility] CenterComment on above:Performed By: #### CBC #### [facility] [address] [place] [address] Dr. Eusebia Yumphocytes/100 WBC (Bld)19.9 %Critically low20.5-60.0The [facility] CenterComment on above:Performed By: #### CBC #### [facility] [address] [place] [address] Dr. Eusebia PattersonUAL DIFF REQNONormalThe [facility] CenterComment on above: Performed By: #### CBC #### [facility] [address] [place] [address] Dr. Eusebia Chun (RBC) [Entitic mass]29.1 klZryhrk07.7-34.0The [facility] CenterComment on above:Performed By: #### CBC #### [facility] [address] [place] [address] Dr. Eusebia Chun (RBC) [Mass/Vol]31.4 g/rOLrttep70.9-35.2The [facility] CenterComment on above:Performed By: #### CBC #### [facility] [address] [place] [address] Dr. Eusebia Chun (RBC) [Entitic vol]92.9 iEXhxijf62.0-99.0The [facility] CenterComment on above:Performed By: #### CBC #### [facility] [address] [place] [address] Dr. Eusebia Davis #0.7 103/ulNormal0.3-0.8The [facility] CenterComment on above:Performed By: #### CBC #### [facility] [address] [place] [address] Dr. Eusebia Fanocytes/100 WBC (Bld)9.4 %Normal1.7-12.0The [facility] Comment on above:Performed By: #### CBC #### [facility] [address] [place] [address] Dr. Eusebia Morin #4.7 103/ulNormal1.4-6.5The [facility] CenterComment on above:Performed By: #### CBC #### [facility] [address] [place] [address] Dr. Eusebia Mccormackutrophils/100 WBC (Bld)67.6 %Ajhiml11.0-75.0The [facility] CenterComment on above:Performed By: #### CBC #### [facility] [address] [place] [address] Dr. Eusebia Hoyoslet mean volume (Bld) [Entitic vol]9.9 fLNormal9.5-13.5The [facility] CenterComment on above:Performed By: #### CBC #### [facility] [address] [place] [address] Dr. Eusebia MoralezPLT218 103/caAcjotj002-079Zgq [facility] CenterComment on above: Performed By: #### CBC #### [facility] [address] [place] [address] Dr. Eusebia MoralezRBC4.36 106/ulNormal4.20-5.40The [facility] CenterComment on above:Performed By: #### CBC #### [facility] [address] [place] [address] Dr. Eusebia MoralezWBC6.9 103/ulNormal4.0-11.0The [facility] CenterComment on above: Performed By: #### CBC #### [facility] [address] [place] [address] Dr. Eusebia MoralezPROF CHEM 8 (BAS METB)on 64-35-3245Yohxz gap [Moles/Vol]9.0 mmol/LNormalThe [facility] CenterComment on above:Performed By: #### BMP #### [facility] [address] [place] [address] Dr. Eusebia MoralezCalcium [Mass/Vol]9.2 mg/dLNormal8.5-10.1[facility] Comment on above:Performed By: #### BMP #### [facility] [address] [place] [address] Dr. Eusebia MoralezChloride [Moles/Vol]103 mmol/XWysldb62-316Csw [facility] Comment on above:Performed By: #### BMP #### [facility] [address] [place] [address] Dr. Eusebia MoralezCO2 [Moles/Vol]32.9 mmol/LCritically high21.0-32.0The [facility] CenterComment on above:Performed By: #### BMP #### [facility] [address] [place] [address] Dr. Eusebia MoralezCreatinine [Mass/Vol]1.74 mg/dLCritically high0.55-1.02[facility] HospitalComment on above:Performed By: #### BMP #### [facility] [address] [place] [address] [address] Eusebia DunlapGFR-AF CKVONWKI21 mL/min/1.96s7Xmxmwrpqab low>=60The [facility] CenterComment on above:Performed By: #### BMP #### [facility] [address] [address] [address] Eusebia DunlapGFR-NON AF FVVZHJFF22 mL/min/1.05g3Rulsjjyycm low>=60The [facility] CenterComment on above:Performed By: #### BMP #### [facility] [address] [place] [address] Dr. Eusebia MoralezGlucose [Mass/Vol]101 mg/lMKbdztu02-381ZlnBethesda North Hospital Comment on above:Performed By: #### BMP #### [facility] [address] [place] [address] [address] Eusebia MoralezPotassium [Moles/Vol]3.9 mmol/LNormal3.5-5.1[facility] Comment on above:Performed By: #### BMP #### [facility] [address] [place] [address] Dr. Eusebia MoralezSodium [Moles/Vol]141 mmol/BKyxhvt679-931YfaBethesda North Hospital Comment on above:Performed By: #### BMP #### [facility] [address] [place] [address] [address] Eusebia MoralezUrea nitrogen [Mass/Vol]34.0 mg/dLCritically high7.0-18.0The [facility] CenterComment on above:Performed By: #### BMP #### [facility] [address] [place] [address] Dr. Eusebia Ortega nitrogen/Creatinine [Mass ratio]19.5 mg/mgNormalThe [facility] CenterComment on above:Performed By: #### BMP #### [facility] [address] [place] [address] Dr. Eusebia SchaeferC AUTO DIFFon 11-55-3316SJCR #0.1 103/ulNormal0.0-0.1The [facility] CenterComment on above:Performed By: #### CBC ####[facility] Cs[address]rs[address] [place], [place] [address]Dr.Lisadenise ChangBasophils/100 WBC (Bld)0.7 %Normal0.2-2.0The [facility] CenterComment on above:Performed By: #### CBC ####[facility] [facility] [address] [place], [place] [address]Dr.Lisalan ChangEO #0.1 103/ulNormal0.0-0.7The [facility] CenterComment on above:Performed By: #### CBC ####[facility] Iulvrupanv[address] [place], [place] [address]Dr.Lisadenise ChangEosinophils/100 WBC (Bld)1.8 %Normal 0.9-7.0The [facility] CenterComment on above:Performed By: #### CBC ####[facility] Dytivpdmaz[address] [place], [place] [address]Dr.Lisadenise Moralez Erythrocyte distribution width (RBC) [Ratio]13.1 %Cianjl16.0-15.0The [facility] CenterComgarden city hospital on above:Performed By: #### CBC ####[facility] Kzltwjdjsu[address] [place], [place] [address]Dr.Lisadenise KirtHematocrit (Bld) [Volume fraction]40.2 %Yjjmxy52.0-48.0The [facility] CenterComment on above:Performed By: #### CBC ####[facility] Htvegztovp[address] [place], [place] [address]Dr.Lisadenise ChangHemoglobin (Bld) [Mass/Vol]12.5 g/dL Nyivwr94.0-16.0The [facility] CenterComment on above:Performed By: #### CBC ####[facility] Hukowkjyqg[address] [place], [place] [address]Dr. Eusebia ChangIG #0.01 10e3/ulNormal0.00-0.03The [facility] CenterComment on above: Performed By: #### CBC ####[facility] [address] [place] [address]Dr.Eusebia ChangIG %0.1 %Normal0.0-0.5The [facility] CenterComment on above:Performed By: #### CBC ####[facility] [address] [place] [address]Dr.Eusebia MoralezLYMPH #1.5 103/ulNormal1.2-3.8The [facility] CenterComment on above:Performed By: #### CBC ####[facility] Xztuxckrtx[address] [place], [place] [address]Dr. Eusebia MoralezLymphocytes/100 WBC (Bld)22.6 %Subadk16.5-60.0[facility] Comment on above:Performed By: #### CBC ####[facility] Kfuqvtrrfq[address] [place], [place] [address]Dr.Lisalan KirtMANUAL DIFF REQNONormalThe [facility] CenterComment on above:Performed By: #### CBC ####[facility] Bailcvdwvf6[address] [place], [place] [address]Dr.Eusebia MoralezMCH (RBC) [Entitic mass]29.3 ruFqtiio89.7-34.0The [facility] CenterComment on above: Performed By: #### CBC ####[facility] Hyhlgxikko[address] [place], [place] [address]Dr.Eusebia MoralezMCHC (RBC) [Mass/Vol]31.1 g/dLNormal 29.9-35.2The [facility] CenterComment on above:Performed By: #### CBC ####[facility] Lxetthztbr87[address] [place], [place] [address]Dr. Eusebia MoralezMCV (RBC) [Entitic vol]94.4 iJInngwp26.0-99.0The [facility] Comment on above:Performed By: #### CBC ####[facility] Elhxdaqqid99[address] [place], [place] [address]Dr.Eusebia MoralezMONO #0.6 103/ulNormal0.3-0.8 The [facility] CenterComment on above:Performed By: #### CBC ####[facility] [address] [place] [address]Dr.Eusebia Moralez Monocytes/100 WBC (Bld)9.1 %Normal1.7-12.0The [facility] CenterComment on above: Performed By: #### CBC ####[facility] Ivkmpaebrx5[address] [place], [place] [address]Dr.Eusebia MoralezNEUT #4.4 103/ulNormal1.4-6.5The [facility] CenterComment on above:Performed By: #### CBC ####[facility] Ircqzcogvn88[address] [place], [place] [address]Dr.Eusebia MoralezNeutrophils/100 WBC (Bld)65.7 %Ckvoas35.0-75.0The [facility] Hospitalment on above:Performed By: #### CBC ####[facility] Dheympvehp[address] [place], [place] [address]Dr.Eusebia MoralezPlatelet mean volume (Bld) [Entitic vol]9.6 fLNormal9.5-13.5 The [facility] CenterComment on above:Performed By: #### CBC ####[facility] Tkypgpuyzy[address] [place], [place] [address]Dr.Eusebia EkyygCJO505 103/fqYedwbi229-603Wna [facility] CenterComment on above:Performed By: #### CBC ####[facility] Zsalwohipi[address] [place], [place] [address]Dr. Eusebia ChangRBC4.26 106/ulNormal4.20-5.40The [facility] CenterComgarden city hospital on above: Performed By: #### CBC ####[facility] Cihldrszpj[address] [place], [place] [address]Dr.Eusebia ChangWBC6.7 103/ulNormal4.0-11.0The [facility] CenterComgarden city hospital on above:Performed By: #### CBC ####[facility] Sqgutaeban[address] [place], [place] [address]Dr.Eusebia MoralezPROF CHEM 8 (BAS METB)on 82-78-8308Vrxvc gap [Moles/Vol]11.2 mmol/LNormalThe [facility] CenterComment on above:Performed By: #### BMP ####[facility] Sysfidigoz35[address] [place], [place] [address]Dr.Yilan ChangCalcium [Mass/Vol]9.2 mg/dLNormal8.5-10.1The [facility] HospitalComment on above:Performed By: #### BMP ####[facility] Ciieborbmk[address] [place], [place] [address]Dr.Yilan ChangChloride [Moles/Vol]109 mmol/LCritically phjs52-640Myl [facility] CenterComment on above:Performed By: #### BMP ####[facility] Rqyjuaobne[address] [place], [place] [address]Dr.Yilan ChangCO2 [Moles/Vol] 27.6 mmol/PYmonwu70.0-32.0The [facility] CenterComment on above:Performed By: #### BMP ####[facility] Idveltguyv7162[address] [place], [place] [address]Dr.Yilan ChangCreatinine [Mass/Vol]1.49 mg/dLCritically high0.55-1.02The [facility] CenterComment on above:Performed By: #### BMP ####[facility] Mufgfjaqdk[address] [place], [place] [address]Dr.Yilan ChangEGFR-AF YDCTTAFV87 mL/min/1.03z1Dddmpwztam low>=60The [facility] CenterComment on above: Performed By: #### BMP ####[facility] Tujhaffdme[address] [place], [place] [address]Dr.Yilan ChangEGFR-NON AF PPJPCSVQ87 mL/min/1.73m2 Critically low>=60The [facility] CenterComment on above:Performed By: #### BMP ####[facility] Kfxlumrhpj[address] [place], [place] [address]Dr. Yilan ChangGlucose [Mass/Vol]89 mg/uDGoimlt49-465Sqc [facility] CenterComment on above:Performed By: #### BMP ####[facility] Aikxvsxfie8[address] [place], [place] [address]Dr.Eusebia MoralezPotassium [Moles/Vol]4.8 mmol/LNormal 3.5-5.1The [facility] CenterComment on above:Performed By: #### BMP ####[facility] [address]az[address] [place], [place] [address]Xe.Eusebia Moralez Sodium [Moles/Vol]143 mmol/WBeevst996-264Xdr [facility] CenterComment on above: Performed By: #### BMP ####[facility] Ofhkbkdpjg8[address] [place], [place] [address]Gs.Eusebia MoralezUrea nitrogen [Mass/Vol]27.0 mg/dL Critically high7.0-18.0The [facility] CenterComment on above:Performed By: #### BMP ####[facility] [address] [place], [place] [address]Ya. Eusebia MoralezUrea nitrogen/Creatinine [Mass ratio]18.1 mg/mgNormalThe [facility] CenterComment on above:Performed By: #### BMP ####[facility] Npdwkzohep[address] [place], [place] [address]Sl.Eusebia MoralezCT LUNG CANCER SCREENINGon 72-81-2754WM LUNG CANCER SCREENINGEXAMINATION: CT LUNG CANCER SCREENING HISTORY: Nicotine dependence [...] Electronically authenticated by: AMBAR MAYA Date: 2022-02-24 08:15NormalBethesda North HospitalPROF CHEM 8 (BAS METB)on 70-40-5107Jshvf gap [Moles/Vol]9.7 mmol/LNormalBethesda North HospitalComment on above:Performed By: #### BMP #### [facility] [address] [address] [address] Eusebia MoralezCalcium [Mass/Vol]8.8 mg/dLNormal8.5-10.1[facility] Comment on above:Performed By: #### BMP #### [facility] [address] [address] [address] Eusebia MoralezChloride [Moles/Vol]107 mmol/TGifwml18-572Wcc [facility] Comment on above:Performed By: #### BMP #### [facility] [address] [address] [address] Eusebia MoralezCO2 [Moles/Vol]29.5 mmol/TLdzwlu21.0-32.0[facility] Comment on above:Performed By: #### BMP #### [facility] [address] [address] [address] Eusebia MoralezCreatinine [Mass/Vol]1.83 mg/dLCritically high0.55-1.02[facility] HospitalComment on above:Performed By: #### BMP #### [facility] [address] [address] [address] Eusebia DunlapGFR-AF OCSNNQPW17 mL/min/1.28t8Ezoqeyzhjv low>=60The [facility] CenterComment on above:Performed By: #### BMP #### [facility] [address] [address] [address] Eusebia DunlapGFR-NON AF RQZCEMZN05 mL/min/1.26g5Nsylrcfltf low>=60The [facility] CenterComment on above:Performed By: #### BMP #### [facility] [address] [address] [address] Eusebia MoralezGlucose [Mass/Vol]87 mg/uPPdkrce62-142RmkBethesda North Hospital Comment on above:Performed By: #### BMP #### [facility] [address] [address] [address] Eusebia MoralezPotassium [Moles/Vol]5.2 mmol/LCritically high3.5-5.1[facility] HospitalComment on above:Performed By: #### BMP #### [facility] [address] [address] [address] Eusebia MoralezSodium [Moles/Vol]141 mmol/VWoghtp536-336Jse [facility] Comment on above:Performed By: #### BMP #### [facility] [address] [address] [address] Eusebia MoralezUrea nitrogen [Mass/Vol]37.0 mg/dLCritically high7.0-18.0The [facility] CenterComment on above:Performed By: #### BMP #### [facility] [address] [address] [address] Eusebia Ortega nitrogen/Creatinine [Mass ratio]20.2 mg/mgNormalThe [facility] CenterComment on above:Performed By: #### BMP #### [facility] [address] [address] [address] Eusebia MoralezNM STRESS/REST MULTIon 76-17-2462WT STRESS/REST MULTIPatient: VERO SADLER Exam Date: 01/23/2022 : 1950 Gender:F Ordering : DR DEBBIE BHATIA . Admission #: [id number] Family : Order #: [id number] CLICK HERE TO VIEW EXAM RADIOLOGY REPORT [...] by: Raji Canchola MD on 01/26/2022 at 13:45[facility] ECHOCARDIO M/2D COMPLETEon 19-17-4228VWVGXPEVEN M/2D COMPLETEPatient: TRUDI SADLERE La Exam Date: 01/21/2022 : 1950 Gender:F Ordering : DR DEBBIE BHATIA . Admission #: [id number] Family : Order #: [id number] CLICK HERE TO VIEW EXAM ECHOCARDIOGRAM REPORT [...] by: Tato Salcido M.D. on 01/21/2022 at 09:17[facility] CenterXR DEXA BONE DENSITYon 12-47-5738BJ DEXA BONE DENSITYEXAMINATION: XR DEXA BONE DENSITY, 01/21/2022 8:27 AM [...] Electronically authenticated by: RAJI CANCHOLA Date: 2022-01-21 10:03[facility] CenterBNPon 89-12-8408Dmojjmocqjy peptide B (Bld) [Mass/Vol]834.0 pg/mLNormal<=900.0The [facility] CenterComment on above:Performed By: #### TSH, BNP, CMP, T7, LIPID ####[facility] [address] [place] [address]Dr. Eusebia Klein AUTO DIFFon 00-75-0891TXJT #0.0 103/ulNormal 0.0-0.1The [facility] CenterComment on above:Performed By: #### CBC #### [facility] [address] [address] [address] Eusebia Beanphils/100 WBC (Bld)0.4 %Normal0.2-2.0The [facility] Comment on above:Performed By: #### CBC #### [facility] [address] [address] [address] Yilan ChangEO #0.1 103/ulNormal0.0-0.7The [facility] CenterComment on above: Performed By: #### CBC #### [facility] [address] [place] [address] Dr. Eusebia Dunlaposinophils/100 WBC (Bld)1.1 %Normal0.9-7.0The [facility] Comment on above:Performed By: #### CBC #### [facility] [address] [place] [address] Dr. Eusebia Dunlaprythrocyte distribution width (RBC) [Ratio]15.0 %Fnvyzk27.0-15.0 The [facility] CenterComment on above:Performed By: #### CBC #### [facility] [address] [place] [address] Dr. Eusebia MoralezHematocrit (Bld) [Volume fraction]39.6 %Sgabqb00.0-48.0The [facility] CenterComment on above:Performed By: #### CBC #### [facility] [address] [place] [address] Dr. Eusebia MoralezHemoglobin (Bld) [Mass/Vol]12.4 g/mYQdjfli40.0-16.0The [facility] CenterComment on above:Performed By: #### CBC #### [facility] [address] [place] [address] Dr. Eusebia Pagan #0.02 10e3/ulNormal0.00-0.03The [facility] CenterComment on above:Performed By: #### CBC #### [facility] [address] [place] [address] Dr. Eusebia Pagan %0.3 %Normal0.0-0.5The [facility] CenterComment on above: Performed By: #### CBC #### [facility] [address] [place] [address] Dr. Eusebia PoloH #1.3 103/ulNormal1.2-3.8The [facility] CenterComment on above:Performed By: #### CBC #### [facility] [address] [place] [address] Dr. Eusebia Yumphocytes/100 WBC (Bld)17.9 %Critically low20.5-60.0The [facility] CenterComment on above:Performed By: #### CBC #### [facility] [address] [place] [address] Dr. Eusebia Caballero DIFF REQNONormalThe [facility] CenterComment on above: Performed By: #### CBC #### [facility] [address] [place] [address] Dr. Eusebia Chun (RBC) [Entitic mass]29.8 pvXtqeuj37.7-34.0The [facility] CenterComment on above:Performed By: #### CBC #### [facility] [address] [place] [address] Dr. Eusebia Chun (RBC) [Mass/Vol]31.3 g/zRMzolmf60.9-35.2The [facility] CenterComment on above:Performed By: #### CBC #### [facility] [address] [place] [address] Dr. Eusebia Chun (RBC) [Entitic vol]95.2 nMQvpcii48.0-99.0The [facility] CenterComment on above:Performed By: #### CBC #### [facility] [address] [place] [address] Dr. Eusebia Davis #0.5 103/ulNormal0.3-0.8The [facility] CenterComment on above:Performed By: #### CBC #### [facility] [address] [place] [address] Dr. Eusebia Fanocytes/100 WBC (Bld)7.0 %Normal1.7-12.0The [facility] Comment on above:Performed By: #### CBC #### [facility] [address] [place] [address] Dr. Eusebia Morin #5.2 103/ulNormal1.4-6.5The [facility] CenterComment on above:Performed By: #### CBC #### [facility] [address] [address] [address] Eusebia Mccormackutrophils/100 WBC (Bld)73.3 %Ammhxo05.0-75.0The [facility] Hospitalment on above:Performed By: #### CBC #### [facility] [address] [place] [address] Dr. Eusebia Hoyoslet mean volume (Bld) [Entitic vol]9.5 fLNormal9.5-13.5The [facility] CenterComment on above:Performed By: #### CBC #### [facility] [address] [place] [address] Dr. Eusebia MoralezPLT188 103/itEispib722-944Ade [facility] CenterComgarden city hospital on above: Performed By: #### CBC #### [facility] [address] [place] [address] Dr. Eusebia MoralezRBC4.16 106/ulCritically low4.20-5.40The [facility] on above:Performed By: #### CBC #### [facility] [address] [place] [address] Dr. Eusebia MoralezWBC7.0 103/ulNormal4.0-11.0The [facility] CenterComgarden city hospital on above: Performed By: #### CBC #### [facility] [address] [place] [address] Dr. Eusebia Paul THYROXINE INDEX T7on 91-26-7507HIK9.24Skjbrp7.30-4.50The [facility] on above:Performed By: #### TSH, BNP, CMP, T7, LIPID ####[facility] [address] [place] [address]Dr. Eusebia MoralezT3U35.0 %Xnwmtd38.0-39.0The [facility] on above: Performed By: #### TSH, BNP, CMP, T7, LIPID ####[facility] [address] [address]Dr. Eusebia MoralezT4 [Mass/Vol]7.00 ug/dLNormal 4.80-13.90The [facility] HospitalComment on above:Performed By: #### TSH, BNP, CMP, T7, LIPID ####[facility] [address] [place] [id number]. Eusebia Keith 79-98-4487Vyfs [Mass/Vol]58.0 ug/dLNormal 50.0-170.0[facility] HospitalComment on above:Performed By: #### IRON #### [facility] [address] [address] [address] Eusebia MoralezLIPID PROFILEon 89-40-1474JGYM-HDL RATIO NORMSEE [facility] CenterComment on above:Result Comment: 3.3 - 4.4 LOW RISK 4.4 - 7.1 AVERAGE RISK 7.1 - 11.0 MODERATE RISK >11.0 HIGH RISKPerformed By: #### TSH, BNP, CMP, T7, LIPID ####[facility] [address] [address]Dr. Eusebia MoralezCholesterol [Mass/Vol]186 mg/dLNormal<=200The [facility] CenterComment on above:Performed By: #### TSH, BNP, CMP, T7, LIPID ####[facility] [address] [address]Dr. Eusebia MoralezCholesterol in HDL [Mass/Vol]45 mg/cCPzzmbc01-45BizBethesda North Hospital Comment on above:Performed By: #### TSH, BNP, CMP, T7, LIPID ####[facility] [address] [address]Dr. Eusebia Moralez Cholesterol in LDL [Mass/Vol]118.4 mg/dLOhioHealth Grant Medical CenterComment on above:Performed By: #### TSH, BNP, CMP, T7, LIPID ####[facility] [address] [address]DrRadha Moralez Cholesterol.total/Cholesterol in HDL [Mass ratio]4.1 {ratio}NormalBethesda North HospitalComment on above:Performed By: #### TSH, BNP, CMP, T7, LIPID ####[facility] [address] [place], [place] [address]Dr. Eusebia MoralezHDL NORMAL> or = 60 mg/dl - LOW CARDIOVASCULAR RISK <40 mg/dl - HIGH CARDIOVASCULAR RISKOhioHealth Grant Medical CenterComgarden city hospital on above:Performed By: #### TSH, BNP, CMP, T7, LIPID ####[facility] [address] [address]Dr. Eusebia MoralezLDL CALC NORMALSEE BELOWOhioHealth Grant Medical CenterComment on above:Result Comment: <100 mg/dl OPTIMAL 100 - 129 mg/dl NEAR OR ABOVE OPTIMAL 130 - 159 mg/dl BORDERLINE HIGH 160 - 189 mg/dl HIGH >190 mg/dl VERY HIGHPerformed By: #### TSH, BNP, CMP, T7, LIPID ####[facility] [address] [address]DrRadha Moralez Triglyceride [Mass/Vol]113 mg/dLNormal<=150The [facility] CenterComgarden city hospital on above:Performed By: #### TSH, BNP, CMP, T7, LIPID ####[facility] [address] [address]Dr. Eusebia MoralezVLDL CALC22.6 mg/dLOhioHealth Grant Medical CenterComment on above:Performed By: #### TSH, BNP, CMP, T7, LIPID ####[facility] [address] [address]DrRadha MoralezPROF 14(COMP METB)on 02-70-1280Tarpzqn [Mass/Vol]3.3 g/dLCritically low3.4-5.0The [facility] CenterComgarden city hospital on above:Performed By: #### TSH, BNP, CMP, T7, LIPID #### [facility] [address] [address] [address] Eusebia MoralezAlbumin/Globulin [Mass ratio]0.9 {ratio}NormalThe [facility] on above:Performed By: #### TSH, BNP, CMP, T7, LIPID #### [facility] [address] [address] [address] Eusebia GarciaP [Catalytic activity/Vol]81 U/ESgixbg92-353Bvo [facility] CenterComment on above:Performed By: #### TSH, BNP, CMP, T7, LIPID #### [facility] [address] [place] [address] Dr. Eusebia Callejas [Catalytic activity/Vol]19 U/RGoybbe26-38Obr [facility] CenterComment on above:Performed By: #### TSH, BNP, CMP, T7, LIPID #### [facility] [address] [place] [address] Dr. Eusebia Maciason gap [Moles/Vol]12.3 mmol/LNormalThe [facility] Comment on above:Performed By: #### TSH, BNP, CMP, T7, LIPID #### [facility] [address] [place] [address] Dr. Eusebia Umanzor [Catalytic activity/Vol]12 U/LCritically jze05-50NkvBethesda North HospitalComment on above:Performed By: #### TSH, BNP, CMP, T7, LIPID #### [facility] [address] [place] [address] Dr. Eusebia MoralezBilirubin [Mass/Vol]0.4 mg/dLNormal0.2-1.0[facility] Comment on above:Performed By: #### TSH, BNP, CMP, T7, LIPID #### [facility] [address] [place] [address] Dr. Eusebia MoralezCalcium [Mass/Vol]8.9 mg/dLNormal8.5-10.1[facility] Comment on above:Performed By: #### TSH, BNP, CMP, T7, LIPID #### [facility] [address] [place] [address] Dr. Eusebia MoralezChloride [Moles/Vol]106 mmol/TStcmao59-578WyaBethesda North Hospital Comment on above:Performed By: #### TSH, BNP, CMP, T7, LIPID #### [facility] [address] [place] [address] Dr. Eusebia MoralezCO2 [Moles/Vol]27.4 mmol/HHpdezb80.0-32.0The [facility] Comment on above:Performed By: #### TSH, BNP, CMP, T7, LIPID #### [facility] [address] [place] [address] Dr. Eusebia MoralezCreatinine [Mass/Vol]1.51 mg/dLCritically high0.55-1.02[facility] Hospitalment on above:Performed By: #### TSH, BNP, CMP, T7, LIPID #### [facility] [address] [place] [address] Dr. Eusebia DunlapGFR-AF SNNNVEWG11 mL/min/1.46c4Wbfyoejweg low>=60The [facility] CenterComment on above:Performed By: #### TSH, BNP, CMP, T7, LIPID #### [facility] [address] [place] [address] Dr. Eusebia DunlapGFR-NON AF JOXEBWXW42 mL/min/1.86e6Fyqnjmrqza low>=60The [facility] CenterComment on above:Performed By: #### TSH, BNP, CMP, T7, LIPID #### [facility] [address] [place] [address] Dr. Eusebia MoralezGlobulin (S) [Mass/Vol]3.5 g/dLNormalThe [facility] CenterComment on above:Performed By: #### TSH, BNP, CMP, T7, LIPID #### [facility] [address] [place] [address] Dr. Eusebia MoralezGlucose [Mass/Vol]129 mg/dLCritically dfal99-624OpoT[facility] on above:Performed By: #### TSH, BNP, CMP, T7, LIPID #### [facility] [address] [place] [address] Dr. Eusebia MoralezPotassium [Moles/Vol]4.7 mmol/LNormal3.5-5.1The [facility] Comment on above:Performed By: #### TSH, BNP, CMP, T7, LIPID #### [facility] [address] [place] [address] Dr. Eusebia MoralezProtein [Mass/Vol]6.8 g/dLNormal6.4-8.2[facility] Comment on above:Performed By: #### TSH, BNP, CMP, T7, LIPID #### [facility] [address] [place], [place] [address] Dr. Eusebia MoralezSodium [Moles/Vol]141 mmol/QJarwrn649-160Mqf [facility] Comment on above:Performed By: #### TSH, BNP, CMP, T7, LIPID #### [facility] [address] [address] [address] Eusebia Ortega nitrogen [Mass/Vol]37.0 mg/dLCritically high7.0-18.0The [facility] CenterComment on above:Performed By: #### TSH, BNP, CMP, T7, LIPID #### [facility] [address] [address] [address] Eusebia Ortega nitrogen/Creatinine [Mass ratio]24.5 mg/mgNormalThe [facility] CenterComment on above:Performed By: #### TSH, BNP, CMP, T7, LIPID #### [facility] [address] [address] [address] Eusebia Vaca 94-46-5884VNM1.068 uIU/mLCritically low0.358-3.740The [facility] CenterComment on above:Performed By: #### TSH, BNP, CMP, T7, LIPID ####[facility] [id number] [place], [place] [address]LqDr. Eusebia Zunigavid-19 PCR ([facility])on [id number]-CoV-2 (COVID-19) RNA DEREK+probe Ql (Unsp spec)Not detectedNormalNOT DETECTEDThe [facility] Medical CenterComment on above:Result Comment: This test is not yet approved or cleared by the [place] FDA. When there are no FDA-approved or cleared tests available, and other criteria are met, FDA can make tests available under an emergency access mechanism called an Emergency Use Authorization (EUA). The EUA for this test is supported by the [place] of Health and Human Service's (HHS's) declaration [...] of clinical signs and symptoms consistent with SARS-CoV-2.Performed By: #### CVDTBH ####[facility] [id number] [place], [place] [address]Ew. [facility]ia [facility] WO CONon 39-18-4363HGB [facility] [address] WO CONEXAMINATION: MRI [facility] CON HISTORY: Lumbar radiculopathy ; chronic low [...] Electronically authenticated by: AMBAR MAYA Date: 2021-10-10 07:[address] [place] [address] Pulmonary Progress Noteon 13-10-4487YPW [facility]ST[facility] Pt Name: VERO SADLER [address] [place] [address] MR#: [id number] [place] [id number] ACCT: [id number] PROGRESS NOTE- Pulmonary : [facility] Date of Service: 09/13/20 Text NAME: VERO SADLER MR#: [id number] DATE OF SERVICE: 09/13/2020 OUTPATIENT PULMONARY PROGRESS [...] disease, severity unknown. We will try to [facility] Pt Name: VERO SADLER [address] [place] [address] MR#: [id number] [place] [id number] ACCT: [id number] PROGRESS NOTE- Pulmonary : [facility] [...] postoperative management if needed. TIM TOSCANO MD DI/MODL/[id number] CC: Dr. Rito Guerrero MD eSign Date and Time Tim Toscano MD Signature on File 09/26/20 1046NormalSt[address] [facility] Medical CenterGLYCO HEMOon 47-37-1765LqN1n (Bld) [Mass fraction]5.3 %NormalSt. [facility] Regional Medical CenterComment on above:Result Comment: Suggested Diagnosis HbA1c (%) --------- Diabetic > 6.4 Prediabetes 5.7-6.4 Normal < 5.7Performed By: #### L500.90091 #### Test performed at: [address] [address]VTA W/DIFFon 69-34-5947TYQU ABS0.0 K/uLNormal0.0-0.2St. [facility] CenterComment on above:Performed By: #### L200.11743 #### Test performed at: [address] [address]Dekbwdofe/100 WBC (Bld)0.5 %NormalSt. [facility] Centro Regional Medical CenterComment on above:Performed By: #### L200.49274 #### Test performed at: [address] [address]MMO ABS0.1 K/uLNormal0.0-0.5St. [facility] CenterComment on above:Performed By: #### L200.04600 #### Test performed at: [address] [address]Djkexphfoen/100 WBC (Bld)1.2 %NormalSt. [facility] Centro Regional Medical CenterComment on above:Performed By: #### L200.18714 #### Test performed at: [address] [address]Sshvttgmfoa distribution width (RBC) [Ratio]12.8 %Normal 11.5-14.5St. [facility] Medical CenterComment on above:Performed By: #### L200.78242 #### Test performed at: [address] [address]Aeelxtrzec (Bld) [Volume fraction]40.1 %Ekzrmg66.0-48.0St. [facility] Medical CenterComment on above:Performed By: #### L200.96703 #### Test performed at: [address] [address]Zzlyctggls (Bld) [Mass/Vol]12.4 g/zHSoitsg41.0-15.0St. [facility] CenterComment on above:Performed By: #### L200.05578 #### Test performed at: [place] [address] [address]HY %0.3 %NormalSt. [facility] Centro Regional Medical CenterComment on above:Performed By: #### L200.25796 #### Test performed at: [address] [address]ZU ABS0.02 K/uLNormal0-0.05St. [facility] Medical CenterComment on above:Performed By: #### L200.69355 #### Test performed at: [address] [address]Jlycweakels (Bld) [#/Vol]1.3 10*3/uLNormal1.2-3.5St. [facility] CenterComment on above:Performed By: #### L200.93102 #### Test performed at: [address] [address]Cyqlcvstiad/100 WBC (Bld)16.9 %NormalSt. [facility] Centro Regional Medical CenterComment on above:Performed By: #### L200.24396 #### Test performed at: [place] [address]MCH (RBC) [Entitic mass]29.0 pcRluwba94.4-34.6St. [facility] CenterComment on above:Performed By: #### L200.25551 #### Test performed at: [address] [address]QTLZ (RBC) [Mass/Vol]30.9 g/dLLow31.5-36.5St. [facility] Medical CenterComment on above:Performed By: #### L200.27450 #### Test performed at: [place] [address]MCV (RBC) [Entitic vol]93.7 rMXyazuy65.0-98.0St. [facility] Medical CenterComment on above:Performed By: #### L200.76866 #### Test performed at: [address] [address]HSNT ABS0.8 K/uLNormal0.0-1.0St. [facility] Medical CenterComment on above:Performed By: #### L200.31303 #### Test performed at: [address] [address]Ustjcwvqr/100 WBC (Bld)9.7 %NormalSt. [facility] Centro Regional Medical CenterComment on above:Performed By: #### L200.86877 #### Test performed at: [address] [address]ACAAQLEORA ABS5.5 K/uLNormal1.4-6.6St. [facility] Medical CenterComment on above:Performed By: #### L200.39894 #### Test performed at: [address] [address]Qjshszqajaj/100 WBC (Bld)71.4 %NormalSt. [facility] Regional Medical CenterComment on above:Performed By: #### L200.07043 #### Test performed at: [address] [address]SFFY #0.000 K/uLNormal0-0.012St. [facility] Medical CenterComment on above:Performed By: #### L200.72424 #### Test performed at: [address] [address]PZRF %0.0 /100 WBCNormal0-0.2St. [facility] Medical CenterComment on above:Performed By: #### L200.28849 #### Test performed at: [address] [address]Nwlzznae mean volume (Bld) [Entitic vol]10.1 fLNormal 8.7-12.4St. [facility] CenterComment on above:Performed By: #### L200.75808 #### Test performed at: [address] [address]Pzpmafxcd (Bld) [#/Vol]236 10*3/fSHotebw306-473Fj. [facility] CenterComment on above:Performed By: #### L200.43124 #### Test performed at: [address] [address]TCI (d) [#/Vol]4.28 10*6/uLNormal3.5-5.5St. [facility] CenterComment on above:Performed By: #### L200.19958 #### Test performed at: [address] [address]XVT (d) [#/Vol]7.7 10*3/uLNormal3.9-11.0St. [facility] CenterComment on above:Performed By: #### L200.16275 #### Test performed at: [address] [address]VWNSV PA/AP & LATERAL OR 2 VWSon 47-51-5136GXVXX PA/AP & LATERAL OR 2 VWSSTUDY: CHEST PA/AP LATERAL OR 2 VWS; 08/22/2020 2:35 pm INDICATION: COPD. COMPARISON: None. ACCESSION NUMBER(S): [id number] ORDERING CLINICIAN: Ovidio Baez FINDINGS: The lungs are clear without pleural effusion. Borderline cardiomegaly. Otherwise unremarkable mediastinum, eron, and pulmonary vasculature. Thoracic degenerative changes are present. IMPRESSION: No active disease in the chest.NormalSt. [facility] Cent[facility] Regional Medical CenterCOMP META PANELon 37-45-0122Hdakmbl [Mass/Vol]3.4 g/dLNormal3.4-5.0St. [facility] CenterComment on above:Performed By: #### L500.21242, L500.51280, L500.39238 #### Test performed at: [address] [address]RAY PHOS TOTAL88 U/FSiqthz65-363Lc. [facility] CenterComment on above:Performed By: #### L500.05145, L500.80188, L500.53571 #### Test performed at: [address] [address]RVE [Catalytic activity/Vol]17 U/GXmpfsx92-02Wt. [facility] CenterComment on above:Performed By: #### L500.83274, L500.29516, L500.83700 #### Test performed at: [address] [address]BHL [Catalytic activity/Vol]12 U/TGfd10-71Vc. [facility] CenterComment on above:Performed By: #### L500.51851, L500.14695, L500.75681 #### Test performed at: [address] [address]XFQY TOTAL0.5 mg/dLNormal0.2-1.0St. [facility] CenterComment on above:Performed By: #### L500.45991, L500.65581, L500.80772 #### Test performed at: [address] [address]Ttwcknc [Mass/Vol]9.0 mg/dLNormal8.5-10.1St. [facility] Medical CenterComment on above:Performed By: #### L500.08462, L500.54948, L500.82513 #### Test performed at: [address] [address]Pyhqezad [Moles/Vol]107 mmol/LKyzkyt66-102Eo. [facility] CenterComment on above:Performed By: #### L500.60749, L500.95299, L500.25494 #### Test performed at: [address] [address]RE5 [Moles/Vol]29 mmol/DCnuayd43-75Iw. [facility] CenterComment on above:Performed By: #### L500.92773, L500.14567, L500.40926 #### Test performed at: [address] [address]Pgdtynzaar [Mass/Vol]1.280 mg/dLHigh0.550-1.020St. [facility] CenterComment on above:Performed By: #### L500.80752, L500.26858, L500.66380 #### Test performed at: [address] [address]Seqpyju [Mass/Vol]90 mg/bMXrjkev86-84Bl. [facility] CenterComment on above:Result Comment: Fasting GLUCOSE reference range has been updated per (ADA) [place] [employer]'s recommendation. 06/07/2018Performed By: #### L500.37137, L500.76742, L500.37812 #### Test performed at: [address] [address]Wbjlufozq [Moles/Vol]4.4 mmol/LNormal3.5-5.1St. [facility] CenterComment on above:Performed By: #### L500.39266, L500.37229, L500.17103 #### Test performed at: [address] [address]Lbbqomm [Mass/Vol]6.8 g/dLNormal6.4-8.2St. [facility] CenterComment on above:Performed By: #### L500.61603, L500.44041, L500.03886 #### Test performed at: [address] [address]Lwgrai [Moles/Vol]142 mmol/UWrilux167-433Sh. [facility] CenterComment on above:Performed By: #### L500.77126, L500.51802, L500.23840 #### Test performed at: [address] [address]Ioxq nitrogen [Mass/Vol]21 mg/dLHigh7-18St. [facility] Medical CenterComment on above:Performed By: #### L500.36154, L500.58490, L500.67166 #### Test performed at: [address] [address]QMJ ESTIMATEon 37-37-6947BK NEYP44Mij> 60St. [facility] Medical CenterComment on above:Result Comment: eGFR (Estimated GFR) Units of measure:mL/min/1.73 meters sq. *CALCULATION REVISED 01/01/2015;IDMS-traceable MDRD equation eGFR is derived from the reexpressed MDRD Study equation using the following parameters: serum creatinine, age, gender and race. An eGFR<60 mL/min/1.73m2 for >3 months is consistent with chronic kidney disease. Refer to KDOQI guidelines for clinical interpretation.Performed By: #### L500.89660, L500.79838, L500.31596 #### Test performed at: [address] [address]LA non-AFR HBBA23Ndm> 60St. [facility] Comment on above:Performed By: #### L500.78374, L500.38219, L500.67960 #### Test performed at: [address] [address]XAI ULTRA SENSon 31-02-3366BCE ULTRA SENS< 0.005Low 0.358-3.74St. [facility] Medical CenterComment on above:Performed By: #### L500.10971, L500.91964, L500.05636 #### Test performed at: [address] [address]YMJH SP COMP W FLEX/EXT 6 VWSon 85-25-4483FQHG SP COMP W FLEX/EXT 6 VWSSTUDY: LUMB SP COMP W FLEX/EXT 6 VWS ; 07/23/2020 9:01 am INDICATION: PAIN. COMPARISON: None. ACCESSION NUMBER(S): [id number] ORDERING CLINICIAN: Sacha Guerrero FINDINGS: No fracture [...] degenerative changes of the lumbar spine without instability.NormalSt. [facility] Vital Signs Date TimeVital SignValuePerforming GsurhrqhaPuthnsfg87-83-2496 10:45-0400Body jbjoyr790.6 cmJohn Mathews MD Work Phone: [facility] InstituteNeazcuaeru55-48-6420 10:45-0400Body mass index (BMI) [Ratio]47.2 kg/w0MfbbvbJohn Mathews MD Work Phone: [facility] InstituteKqkwedyugj04-83-7429 10:45-0400Body bbobqd068.74 kgJohn Mathews MD Work Phone: [facility] InstituteBhocxxozgc27-11-9749 10:45-0400Diastolic blood gekiowmp57 mm[Hg]John Mathews MD Work Phone: [facility] InstituteMtkggkwtgw87-07-4350 10:45-0400Heart rate75 /min John Mathews MD Work Phone: [facility] InstituteUkkniefdtt01-30-0867 10:45-0400Systolic blood vhsebhhh049 mm[Hg]John Mathews MD Work Phone: [facility] InstituteHojpkwqdte46-51-3519 11:07-0400Body .56 cmDebbie Bhatia MD Work Phone: [facility]07-24-2025 11:07-0400 Body mass index (BMI) [Ratio]49.8 kg/c9FmhzjraDebbie Bhatia MD Work Phone: 1([phone] [place], [place] 6833807-24-2025 11:07-0400 Body iyvrry803.54 kgDebbie Bhatia MD Work Phone: 1(378)[address] [place], [place] [address]07-24-2025 11:07-0400 Diastolic blood dperzyhn61 mm[Hg]Debbie Bhatia MD Work Phone: 1(035)[address] [place], [place] [address]07-24-2025 11:07-0400 Heart rate79 /Ivon Bhatia MD Work Phone: 1(352)[address] [place], [place] [address]07-24-2025 11:07-0400 Respiratory rate16 /Ivon Bhatia MD Work Phone: 1(676)[address] [place], [place] [address]07-24-2025 11:07-0400 SaO2% (BldA) [Mass fraction]97 %Debbie Bhatia MD Work Phone: 1(856)[address] [place], [place] [address]07-24-2025 11:07-0400 Systolic blood skkkawfs155 mm[Hg]Debbie Bhatia MD Work Phone: 1(654)[address] [place], [place] [address]06-30-2025 13:21-0400 Body rhxvcy092.6 cmJohn Mathews MD Work Phone: 1(024)[address] [place], [place] [address] InstituteZhrjocsgjs97-69-4741 13:21-0400Body mass index (BMI) [Ratio]50.46 kg/a9EtflmoJohn Mathews MD Work Phone: [phone] InstituteNtphtxbccp59-42-9241 13:21-0400Body uzzoie139.36 kgJohn Mathews MD Work Phone: [phone] InstituteLrwzvdttmf32-91-9251 13:21-0400Diastolic blood mm[Hg]John Mathews MD Work Phone: [phone]-[facility] InstituteIapkuhpgpz07-11-8329 13:21-0400Heart rate84 /min John Mathews MD Work Phone: 1(910)050-[facility] InstituteHcnnrqyjne86-08-5806 13:21-0400Systolic blood usbjkadu836 mm[Hg]John Mathews MD Work Phone: 1(759)[address] [place], [place] 85[address]105-28-2025 09:39-0400Body gzruzo945.6 cmJohn Mathews MD Work Phone: 1(269)[address] [place], [place] 8535105-28-2025 09:39-0400Body mass index (BMI) [Ratio]50.46 kg/v0HzdowuJohn Mathews MD Work Phone: 1(311)[address] [place], [place] 8535105-28-2025 09:39-0400Body rudiop157.36 kgJohn Mathews MD Work Phone: 1(938)[address] [place], [place] 8535105-28-2025 09:39-0400Diastolic blood mm[Hg]John Mathews MD Work Phone: 1(670)[address] [place], [place] 8535105-28-2025 09:39-0400Heart rate80 /min John Mathews MD Work Phone: 1(796)[address] [place], [place] 8535105-28-2025 09:39-0400Systolic blood puhywlbq146 mm[Hg]John Mathews MD Work Phone: 1(845)[address] [place], [place] 8535105-07-2025 14:20-0400Diastolic blood wpfavibu63 mm[Hg]Debbie Bhatia MD Work Phone: 1(763)[address]05-07-2025 14:20-0400 Heart rate67 /Ivon Bhatia MD Work Phone: 1(956)612-[address] [place], [place] 6833805-07-2025 14:20-0400 Respiratory rate18 /Ivon Bhatia MD Work Phone: 1(896)[address] [place], [place] [address]05-07-2025 14:20-0400 SaO2% (BldA) [Mass fraction]98 %Debbie Bhatia MD Work Phone: 1(746)415-[address] [place], [place] 6833805-07-2025 14:20-0400 Systolic blood ayamilmg274 mm[Hg]Debbie Bhatia MD Work Phone: 1(472)[address]05-07-2025 11:23-0400 Body .56 cmDebbie Bhatia MD Work Phone: [facility]05-07-2025 11:23-0400 Body dogoeq821.81 kgDebbie Bhatia MD Work Phone: [facility]05-01-2025 10:50-0400 Blood Pressure LocationKCARMEN ZAMUDIOANSAH-AMANKRA [facility]05-01-2025 10:50-0400 Diastolic blood qpbewwla32 mm[Hg]ROSETTA NKANSAH-AMANKRA [address] [place], [place] [address]205-01-2025 10:50-0400Heart rate74 /minKWABENA NKANSAH-AMANKRA [facility]05-01-2025 10:50-5023RvT1% (BldA) [Mass fraction]94 %ROSETTA NKANSAH-AMANKRA [address] [place], [place] 6297405-01-2025 10:50-0400 Systolic blood petoqqin826 mm[Hg]ROSETTA NKANSAH-AMANKRA [facility]05-01-2025 09:45-0400Blood Pressure LocationKDRISSBEVIVIANE NKANSAH-AMANKRA [facility]05-01-2025 09:45-0400Body rnvfbrhufan64.34 [degF]ROSETTA NKANSAH-AMANKRA [facility]05-01-2025 09:45-0400 Diastolic blood khlazams95 mm[Hg]ROSETTA NKANSAH-AMANKRA [facility]05-01-2025 09:45-0400Heart rate67 /minKWABENA NKANSAH-AMANKRA [address] [place], [place] [address]69205-01-2025 09:45-0400Mean blood owssfucf766 mm[Hg]ROSETTA NKANSAH-AMANKRA [facility]05-01-2025 09:45-0400 Respiratory rate13 /minKWABENA NKANSAH-AMANKRA [facility]05-01-2025 09:45-8883IuP6% (BldA) [Mass fraction]93 %ROSETTA NKANSAH-AMANKRA [facility]05-01-2025 09:45-0400 Systolic blood xroaynel795 mm[Hg]ROSETTA NKANSAH-AMANKRA [facility]05-01-2025 09:44-2375GaE8% (BldA) [Mass fraction]91 %ROSETTA NKANSAH-AMANKRA [facility]05-01-2025 09:30-0400 Respiratory rate13 /minKWABENA NKANSAH-AMANKRA [facility]05-01-2025 09:30-0400Heart rate68 /minKWABENA NKANSAH-AMANKRA [facility]05-01-2025 09:30-0400Blood Pressure LocationKWABENA NKANSAH-AMANKRA [facility]05-01-2025 09:30-0400 Diastolic blood vwvrufpo17 mm[Hg]ROSETTA NKANSAH-AMANKRA [facility]05-01-2025 09:30-0400Mean blood jzyzntpv76 mm[Hg]ROSETTA NKANSAH-AMANKRA [facility]05-01-2025 09:30-0400 Systolic blood hgaygroh444 mm[Hg]ROSETTA NKANSAH-AMANKRA [facility]05-01-2025 09:25-0400 Respiratory rate18 /minKWABENA NKANSAH-AMANKRA [address] [place], [place] 2569205-01-2025 09:25-0400Mean blood rtiorkoe09 mm[Hg]ROSETTA ROBBANSAH-AMANKRA [address] [place], [place] 2569205-01-2025 09:20-0400 Respiratory rate12 /minKWABENA NKANSAH-AMANKRA [address] [place], [place] 2569205-01-2025 09:15-0400Body ehsfaedcaqe55.16 [degF]ROSETTA ROBBANSAH-AMANKRA [address] [place], [place] 2569205-01-2025 09:15-0400 Respiratory rate12 /minKWABENA NKANSAH-AMANKRA [facility]05-01-2025 07:27-0400Mean blood tucblfoz170 mm[Hg]ROSETTA ROBBANSAH-AMANKRA [address] [place], [place] 2569205-01-2025 07:26-0400Mean blood mm[Hg]ROSETTA ZAMUDIOANSAH-AMANKRA [address] [place], [place] 2569205-01-2025 07:24-0400 Respiratory rate20 /minKWABENA ROBBANSAH-AMANKRA [address] [place], [place] 2569205-01-2025 07:24-0400Body jlrnqacddxu73.7 [degF]ROSETTA NKANSAH-AMANKRA [address] [place], [place] 2569204-15-2025 11:14-0400Body forrqf970.[address] [facility]04-15-2025 11:14-0400Body mass index (BMI) [Ratio]53 kg/f0FbcxxonrpMercy Health St. [facility]04-15-2025 11:14-0400Body jgeolesjnaf89.6 [degF][facility]04-15-2025 11:14-0400Body .[address] [facility]04-15-2025 11:14-0400Diastolic blood yhwlbykv79 mm[Hg][facility] 06-27-2024 11:14-0400Heart wyou174 /[facility] 06-27-2024 11:14-0400Respiratory rate18 /[facility] 06-27-2024 11:14-4517SwG3% (BldA) [Mass fraction]93 %[facility]04-15-2025 11:14-0400Systolic blood ucfjgbje497 mm[Hg][facility]04-14-2025 13:31-0400Heart rate67 /Efraín DESAI-AMANKRA [facility]04-14-2025 13:31-1533DzF9% (BldA) [Mass fraction]94 %ROSETTA ROBBANSCLAUDIO-AMANKRA [facility]04-14-2025 13:30-0400 Respiratory rate20 /TaneshaNA ROBBANSAH-AMANKRA [facility]04-08-2025 09:36-0400Body qieqau082.6 cmJohn Mathews MD Work Phone: [facility] InstituteDjbwisrlhv06-67-2108 09:36-0400Body mass index (BMI) [Ratio]50.46 kg/r9BascbgJohn Mathews MD Work Phone: [facility] InstituteMbnnbvkmbe42-19-6030 09:36-0400Body gnxzqo851.36 kgJohn Mathews MD Work Phone: [facility] InstituteDzzbzppdfp64-95-3801 09:36-0400Diastolic blood mpvlxykx99 mm[Hg]John Mathews MD Work Phone: [facility] InstituteAghnlpuuas49-79-9448 09:36-0400Systolic blood illyajho025 mm[Hg]John Mathews MD Work Phone: 1(034)[address] [place], [place] [address] InstituteWcurjdosca56-85-7047 08:38-0500Body ujkywv322.6 cmJohn Mathews MD Work Phone: 1(685)[address] [place], [place] 8535102-25-2025 08:38-0500Body mass index (BMI) [Ratio]50.81 kg/u9VklriyJohn Mathews MD Work Phone: 1(457)[facility] InstituteCrnbtyojgi53-87-2222 08:38-0500Body .26 kgJohn Mathews MD Work Phone: 1(978)[address] [place], [place] 8535102-25-2025 08:38-0500Diastolic blood uaglpmgi43 mm[Hg]John Mathews MD Work Phone: 1(158)[address] [place], [place] 8535102-25-2025 08:38-0500Heart rate87 /min John Mathews MD Work Phone: 1[facility] [place], [place] [address]Iloskfcdic73-75-7798 08:38-0500Systolic blood egfyjugm667 mm[Hg]John Mathews MD Work Phone: 1(438)777-[address] [place], [place] [address]Hjubphhmlq92-78-6512 14:50-0500Blood Pressure LocationKDRISSBENA NKANSAH-AMANKRA [facility]01-17-2025 14:50-0500Diastolic blood spkcunnb90 mm[Hg]ROSETTA NKANSAH-AMANKRA [facility]01-17-2025 14:50-0500Heart rate86 /minKWABENA NKANSAH-AMANKRA [facility]01-17-2025 14:50-0500Respiratory rate16 /minKWABENA NKANSAH-AMANKRA [facility]01-17-2025 14:50-0500Systolic blood wqdtfuzo977 mm[Hg]ROSETTA BRYAN [facility]10-24-2024 13:02-0400Body iagkmz558.[address] [facility]10-24-2024 13:02-0400Body mass index (BMI) [Ratio]50.5 kg/g3PzfigxnafMercy Health St. [facility]10-24-2024 13:02-0400Body tuarqwqifiv63.3 [degF][facility]10-24-2024 13:02-0400Body baalax373.[address] [facility]10-24-2024 13:02-0400Diastolic blood cxusxfpu79 mm[Hg] [facility]10-24-2024 13:02-0400Heart rate81 /[facility]10-24-2024 13:02-0400Respiratory rate18 /[facility]10-24-2024 13:02-0705RqN7% (BldA) [Mass fraction]98 % [facility]10-24-2024 13:02-0400Systolic blood mm[Hg][facility] Encounters Encounter DateEncounter TypeCare ProviderFacilityStart: 81-83-9851hqfyfgerrsFA ROSETTA MENDEZFacility:EU NorwalkStart: 12-05-2024 End: 50-63-4888Rdwiae flowsAmanda Mathews MD Work Phone: n[facility] OtolaryngologyStart: 12-05-2024 End: 54-30-0634Mxebhrsae Mathews MD Work Phone: NOAJ [facility]avier OtolaryngologyStart: 12-05-2024 End: 29-23-3900Frgrbw outpatient visit 25 minutesJohn Mathews MD Work Phone: NOMS [facility]avier OtolaryngologyComment on above:Acute URI (Primary Dx); ETD (Eustachian tube dysfunction), rightStart: 12-05-2024 End: 61-03-7429jfytzbokpvCKQPIF H TIMMISNot AvailableStart: 83-73-0189fcevaexerd JOSEY [facility]art: 10-24-2024 End: 73-77-2095xlpyxctkghZOPV [facility] Centertart: 10-23-2024 End: 86-50-4834fgthsoqhmxPhvewrs Vytautas Giedraitis Facility:[facility] [place] Start: 10-16-2024 End: 02-99-9557frdlibrwbjBmvntkq Vytautas Giedraitis MDFacility:[facility] Start: 10-05-2024 End: 91-58-2165tyyppsgbgxEmahjct M Hoy MD Work Phone: [facility] Work Phone: Start: 10-05-2024 End: 98-03-6382Qktitvb encounter procedureLizette Schaffer MD-[facility] Work Phone: Start: 09-25-2024 End: 09-61-6661maffqnjazbZkvfmny Vytautas Giedraitis Facility:[facility] Start: 09-22-2024 End: 21-59-4776Osjlhqt encounter procedureLizette Schaffer MD-[facility] Work Phone: Start: 09-22-2024 End: 75-61-0700jagxcuhsieXzlsrdh M Hoy MD Work Phone: [facility] Work Phone: Start: 09-11-2024 End: 50-74-8155Kektawrashad Mathews MD Work Phone: [facility] ENTStart: 09-11-2024 End: 56-88-7238Jzsyqysae Mathews MD Work Phone: [facility]NTStart: 09-11-2024 End: 98-89-6917Tjkyuh outpatient visit 15 minutesHilalias Mathews MD Work Phone: [facility] ENTComment on above:ETD (Eustachian tube dysfunction), right (Primary Dx); Chronic mastoiditis, rightStart: 09-11-2024 End: 01-44-1184uqiuvzlbrdPYRJHF H TIMMISNot AvailableStart: 08-25-2024 End: 74-63-0087vjgxrlyujzMNMVGNN [facility] Ohiotart: 58-33-8907pxghjftkhjBMGS [facility]art: 96-26-6264uxpjiwsrrrEIHZ [facility] Centertart: 08-21-2024 End: 87-34-3455evsyryylvdYU ROSETTA MENDEZFacility:EU [place] Hospicetart: 08-21-2024 End: 59-16-5841Hfibzov encounter procedureKCARMEN MENDEZ [facility] Start: 08-15-2024 End: 03-29-7354Jztqyitgd Result EncounterHilalisa Mathews MD Work Phone: noms External Department UnsolicitedStart: 08-15-2024 End: 08-91-2121Vogokqrpx Result EncounterHimary Mathews MD Work Phone: noms External Department UnsolicitedStart: 08-09-2024 End: 79-50-1159Hgegbk flowsheetJohn Mathews MD Work Phone: noms CI ENTStart: 08-09-2024 End: 13-65-9450Ysafoa Tom Mathews MD Work Phone: noms CI ENTStart: 08-09-2024 End: 69-16-6153Tqqjjr outpatient visit 25 minutesHilary H Timmis MD Work Phone: NONS CI ENTComment on above:ETD (Eustachian tube dysfunction), right (Primary Dx); CSF otorrhea; Chronic myringitis of right earStart: 08-09-2024 End: 32-95-2649geohojztvpHEQDXU H TIMMISNot AvailableStart: 55-59-5858Gch- patient / Non-visitDosissy Bhatia MD Work Phone: [facility] Work Phone: Start: 07-19-2024 End: 91-23-9133Nnjubkxgm to same day surgery centerDebbie Bhatia MD Work Phone: [facility] Work Phone: Start: 07-19-2024 End: 72-39-2593nkiyyhgfraMahzqbr M Hoy MD Work Phone: [facility] Work Phone: Start: 17-77-4837pehpstmzmhFCNKMercy Health St. Vincent Medical Centertart: 07-13-2024 End: 92-17-0456Ptnmrypce to same day surgery ravennaROSETTA MENDEZ [facility] Start: 07-13-2024 End: 49-14-3639hpbmsmjtqtRK ROSETTA MENDEZFacility:FTMCStart: 06-27-2024 End: 23-16-2796esnuvzxyiyNaloyjnafMemorial Health [facility] Work Phone: Start: 06-27-2024 End: 26-44-1211Pmuzwwk encounter procedureFormerly [facility] Physician [facility] Work Phone: Start: 06-26-2024 End: 04-11-9749Nysuspcuw Result EncounterJohn Mathews MD Work Phone: [phone] External Department UnsolicitedStart: 06-26-2024 End: 85-40-1700Oqqpbkyyb Result EncounterJohn Mathews MD Work Phone: noms External Department UnsolicitedStart: 06-26-2024 End: 35-52-7192izifedjezrHWTBTLRThomas MENDEZFacility:FTMCStart: 06-26-2024 End: 72-76-0551Ggdjufn encounter procedureROSETTA MENDEZ [facility] Start: 06-20-2024 End: 50-20-1222Tpbaysrashad Mathews MD Work Phone: noms CI ENTStart: 06-20-2024 End: 73-62-7347Wwkelhrashad Mathews MD Work Phone: noms CI ENTStart: 16-59-3923Fqt-patient / Non-visit [facility] Work Phone: Start: 06-20-2024 End: 56-33-9959Cezoiq outpatient visit 25 minutesHimary Mathews MD Work Phone: noms CI ENTComment on above:OME (otitis media with effusion), right (Primary Dx); ETD (Eustachian tube dysfunction), right; 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Start: 06-20-2024 End: 70-61-3075pmpaypdjpiSUKEHG H TIMMISNot AvailableStart: 05-19-2024 End: 33-79-4121bxuzlufrayERHSLLYLynn MENDEZFacility:EU [place]Start: 05-09-2024 End: 71-66-2088Wsltgy Tom Mathews MD Work Phone: noms CI ENTStart: 05-09-2024 End: 83-51-1474Fuxjgk flowsheetJohn Mathews MD Work Phone: noms CI ENTStart: 05-09-2024 End: 97-28-3553Obcmphbpa Result EncounterJohn Mathews MD Work Phone: noms External Department UnsolicitedStart: 05-09-2024 End: 43-23-9614bdrqcxdlnhNXWGMercy Health St. Vincent Medical Centertart: 05-09-2024 End: 47-28-1033Ipkbdg outpatient new 45 minutesJohn Mathews MD Work Phone: noms CI ENTComment on above:OME (otitis media with effusion), right (Primary Dx); Nonintractable headache, unspecified chronicity pattern, unspecified headache typeStart: 05-09-2024 End: 41-13-9901gbekpbqqwmEASUDF H TIMMISNot AvailableStart: 05-05-2024 End: 49-69-4473xkqspsmsnlZHTDMVSThomas MENDEZFacility:EU [place]Start: 05-05-2024 End: 74-70-0890Ctvstfe encounter procedureROSETTA MENDEZ [facility] Start: 05-01-2024 End: 10-93-6125tsmieayzyeUhvioae Vytautas Giedraalesha BELTRÁNFacility:PM [place] Start: 03-31-2024 End: 19-92-0761iidjreeibhNhljnhu HoyFacility:EU [place]Start: 03-31-2024 End: 81-32-2610Firyeyd encounter procedureROSETTA MENDEZ [facility] Start: 05-53-9248sdumyykudhWMZKRICThomas MENDEZ Facility:EU uskyStart: 02-14-2024 End: 11-28-5430wmxwksoeuhYscngot Vytautas Giedraitis Facility:[facility] [place] Start: 02-08-2024 End: 64-41-6023awydnbeaogWPAE [facility] Centertart: 01-26-2024 End: 47-55-2854ajsluozfgtFVML BAILEYUpper Valley Medical Centertart: 01-06-2024 End: 25-96-3483ffnvybbbdjVjsrmdgtnMemorial [facility] Work Phone: Start: 01-06-2024 End: 88-96-0842Dmjdyjs encounter procedureFormerly [facility] [place] Work Phone: Start: 11-23-2023 End: 57-74-7493Phtrrywsg for other specified special examinationsRYAN López [facility] Systemtart: 11-23-2023 End: 41-40-6487djfzrpnteyMCKPW J. [facility] Start: 07-17-2022 End: 61-94-2223shyhkqbiqaVBIU CHACKOFacility:R3Rqsoj: 07-02-2022 End: 98-05-8659hholrfeghfMZFC CHACKOFacility:E5Jlipo: 08-93-7767pniazwtmpfFA DEBBIE HOY .Facility:T2Pcpkw: 03-09-2022 End: 39-80-9545ngmvocjpimJH DEBBIE HOY .Facility:Z2Zmkof: 02-23-2022 End: 23-95-0639hdtsckxxadLT DEBBIE HOY .Facility:I2Rasgd: 02-02-2022 End: 88-69-3505gfujnrpvixOF DEBBIE HOY .Facility:G1Gqpbr: 01-26-2022 End: 91-78-6519xcgkqmahaqDJ DEBBIE HOY .Facility:P2Ztjmt: 01-23-2022 End: 50-04-9793wgrdsitzvuND DEBBIE HOY .Facility:P0Dokxa: 01-21-2022 End: 45-40-2247iyuukwmzfgJR DEBBIE HOY .Facility:P4Wqmmb: 01-14-2022 End: 36-81-1115vdbeudjxahOA DEBBIE HOY .Facility:H4Ypnyf: 10-28-2021 End: 82-52-6550itojwijmosQN DOUGLAS HOY .Facility:L6Buxjn: 10-09-2021 End: 07-69-8151djvckfvdquXY DOUGLAS HOY .Facility:Y8Exewu: 08-12-2021 End: 05-16-9785dvlgfjpfzlRW DOUGLAS HOY .Facility:C5Qobhn: 49-78-1016srhvgnirsi DR DEBBIE BHATIA .Facility:U6Muctk: 09-29-2016 End: 80-07-4441NrebdllodyOABVCHM PHYSICIANFacility:[facility] Procedures DateProcedureProcedure DetailPerforming ClinicianStart: 26-99-5550Fklvc culture Debbie Bhatia MD Work Phone: Start: 78-44-5336Zdwbi immunofixationDebbie Bhatia MD Work Phone: Comment on above:No monoclonality detected.Start: 44-81-2962Zk orbit sella/post fossa/ear w/o contrast matrlHimary Mathews MD Work Phone: Start: 13-81-4459YlbpsrjvoziFtttnug Hoy MD Work Phone: Start: 95-84-9246ZlgprvtxzoPZXSOGM NKANSAH-AMANKRA Start: 68-50-2810VPR APTTHimary Mathews MD Work Phone: Start: 36-65-4498HSYAQV PROTHROMBIN TIME INR W/O COUM John Yadira Mathews MD Work Phone: Start: 81-66-5594Upclrlpt cystoscope (physical object) ROSETTAVIVIANE MENDEZ Start: 37-99-3192Mvskc sinuses paranasal compl minimum 3 viewsHimary Mathews MD Work Phone: Start: 02-09-2023 End: 16-14-3815ZqzoynydymfXRLPMOJ NKANSAH-AMANKRA Start: 69-38-5101XblchlsnsaoWATFAIQ NKANSAH-AMANK Cataract extraction and insertion of intraocular lens ROSETTA DESAI-AMANKRA ft (qualifier value)ROSETTA DESAI-AMANK H/O: hysterectomyROSETTA SOSAAH-AMANKRA HysterectomyROSETTA ZAMUDIOANSAH-AMANKRA ProcedureROSETTA DESAI-AMANKRA Total hysterectomyROSETTA SOSAAH-AMANKRA Plan of Treatment DateCare ActivityDetailAuthorStart: 90-42-0194Kaqijejfh for malignant neoplasm of colonNOMS HealthcareStart: 09-11-2025 End: 31-90-7184Loubngi encounter ataymsgvz03/30/2026 10:20 AM EDT Office Visit [facility] [place] [facility] [address] [facility] [address] [place] [id number] John Mathews MD [address] [facility] [address] [place] [address] NOMS [place] OtolaryngologyStart: 12-05-2024 End: 79-68-6929Itpenhc encounter dtnetqjen67/23/2025 10:50 AM EDT Office Visit [facility] [place] [facility] [address] [facility] [address] [place] [address] John Mathews MD [address] [facility] [address] [place] [address] ArrivedNOMS [place] OtolaryngologyComment on above:ArrivedStart: 72-20-5824Zgwlqxgst vaccinationNOMS HealthcareStart: 10-48-0023Llthcjbg identified in Urine by CultureUrine CultureZanesville City Hospitaltart: 91-05-4189Swozzzjjwwvpld for UrineZanesville City Hospitaltart: 05-29-3996XuofjRegency Hospital Company Start: 70-90-4431LvcmwpaeyZanesville City Hospitaltart: 09-11-2024 End: 28-22-0614Zsuxilz encounter pzeygjloy11/30/2025 1:30 PM EDT Office Visit [facility] [address] [facility] [address] [place] [address] John Mathews MD [address] [facility] [address] [place] [address] ArrivedNOMS CI ENTComment on above:ArrivedStart: 08-30-2024 End: 21-06-2326Dygafgk encounter rizrihada01/18/2025 9:50 AM EDT Office Visit [facility] [address] [facility] [address] [place] [address] John Mathews MD [address] [facility] [address] [place] [address] NOMS CI ENTStart: 08-09-2024 End: 06-47-4972Edrrwpc encounter procedureNOMS CI ENTComment on above:Arrived Start: 07-19-2024 End: 57-31-1040ZdjzcadwzZanesville City Hospitaltart: 06-20-2024 End: 52-54-2008Reowtbo encounter procedureNOMS CI ENTComment on above:Arrived Start: 05-09-2024 End: 73-08-1123Owbqrph encounter pzwpiphtb94/25/2025 8:40 AM EST Office Visit [facility] [address] [facility] [address] [place] [address] John Mathews MD [address] [facility] [address] [place] [address] ArrivedNOMS CI ENTComment on above:ArrivedStart: 71-39-9980Pmvogutwn vaccinationInfluenza Vaccine (#1)NOMS HealthcareStart: 31-90-8793Gzbbaitgvpdj Vaccine: 65+ Years (1 of 1 - PCV)Pneumococcal Vaccine: 65+ Years (1 of 1 - PCV)[facility] HealthcareStart: 00-12-4230Zbanfqxrjslh Vaccine: 65+ Years (1 of 1 - PCV)Pneumococcal Vaccine: 65+ Years (1 of 1 - PCV)[facility] HealthcareStart: 21-28-2114Soklnfmht for malignant neoplasm of breastMammogram [facility] HealthcareStart: 17-77-1820Jbkupzbky for malignant neoplasm of colonNOMS HealthcareAlbumin [Mass/volume] in Serum or PlasmaMercy Health St. Joseph Warren HospitalAlbumin/Globulin ratioMercy Health St. Joseph Warren HospitalElectrophoresis: hvqzp-3-zlfegvddHkcwaibhtMercy Health St. Joseph Warren HospitalElectrophoresis: nboeh-4-wdftiuekBaybrogupMercy Health St. Joseph Warren HospitalElectrophoresis: beta-globulin [facility] HospitalElectrophoresis: gamma globulinMercy Health St. Joseph Warren HospitalGlobulin [Mass/volume] in SerumMercy Health St. Joseph Warren HospitalIgA [Mass/volume] in Serum or PlasmaMercy Health St. Joseph Warren HospitalIgG [Mass/volume] in Serum or [facility] HospitalIgM [Mass/volume] in Serum or [facility] HospitalImmunofixation for UrineMercy Health St. Joseph Warren HospitalKaa light chains.free [Mass/volume] in SerumMercy Health St. Joseph Warren HospitalKapp light chains.free/Lambda light chains.free [Mass Ratio] in SerumMercy Health St. Joseph Warren HospitalLambda light chains.free [Mass/volume] in Serum or [facility] Patient EducationHemorrhoids Colon polyps Diverticulosis Know your [facility] Work Phone: Protein [Mass/volume] in Serum or [facility] HospitalRenal function 1999 panel - Serum or [facility] HospitalRenal function 1999 panel - Serum or [facility] HospitalRenal function 1999 panel - Serum or [facility] Limaerum immunofixationSutter Amador Hospital Immunizations Immunization DateImmunizationNotesCare CkquornpMmzpknzj97-82-7473XLDU-DtE-0 (COVID-19) mRNA BNT-162b2 Robert MENDEZ [phone]-StpgaThe [facility] Hospital [facility] [place] 80-91-8096XHCP-CoV-2, Jen Mathews MD Work Phone: [facility] Medicine InstituteOemgftxloa77-69-2772XXOI-CkA-8 (COVID-19) mRNA BNT-162b2 Robert MENDEZ [phone]-FadjfThe [facility] Hospital [facility] [place] Payers DatePayer CategoryPayerPolicy [id number] 2018Private Health Insurance [id number] 2014Medicare [id number] [id number] [id number] 2.16.840.1.542801.3.57[id number] 2.16840.1.688115.3.579.2.55173-40-5851Jmxtvqy2549399 2.16840.1.775241.3.579.[id number] 2.16840.1.810704.3.579.2.37112-51-8862Tmfpwlj5613477 2.16.840.1.388646.3.579.2.65025-19-7650Uspojxp4673330 2.16840.1.454972.3.579.2.93306-20-6502Bdcfyfv0236997 2.16.840.1.194686.3.579.2.38006-47-2912Bmmtsss8699897 2.16.840.1.841673.3.579.2.50802-24-6328Vhagiof9675395 2.16.840.1.348307.3.579.2.14743-49-8295Wvdrpbg4419140 2.16.840.1.145300.3.579.2.58656-86-2892Oysiedy1130561 2.16.840.1.996460.3.579.2.87112-04-6259Edydhbh8054116 2.16.840.1.861287.3.579.2.85047-63-7217Cevcgtv6043522 2.840.1.993939.3.579.2.05395-50-9042Fgglgne4555979 2.16.840.1.352988.3.579.2.90411-51-9918Scisllc85319209 2..840.1.127734.3.579.2.19626-21-6525Baagwgn31429437 2.840.1.615277.3.579.2.03306-50-9561Kmuvdxq34984958 2.16.840.1.165297.3.579.2.43101-80-3871Xuvuzfw14861216 2.16.840.1.950025.3.579.2.37675-50-6521Uaefoeq17199445 2.16.840.1.622839.3.579.2.26960-99-3011Jqszyfm85178847 2.16.840.1.805450.3.579.2.18917-96-1352Kneaija54781228 2.16.840.1.416586.3.579.2.25639-03-6220Nwgodbd418411908 2..840.1.361212.3.579.2.74729-07-4968Bwqirae157321014 2..840.1.235048.3.579.2.20869-05-5052Qsygizd236027368 2.0.1.169799.3.579.2.25451-48-2132Vtnvluz125673979 2.0.1.405727.3.579.2.[id number] 2..840.1.867504.3.579.2.36349-72-8476Earfbcv01933702 2.0.1.142917.3.579.2.753726-93-3396Gpbqokf98711742 2.0.1.989271.3.579.2.574566-87-1799Hzjvgqf2371983 2..0.1.109004.3.579.2.812270-22-8818Vwbzvog6033159 2.0.1.549176.3.579.2.980544-12-1220Lebrjkf6594587 2.0.1.232284.3.579.2.7003NomnuoxTPG531Z75937 4x793242-1aq4-87v5-11z6-s374270618n3Utwzsfg87006982 2.0.1.142846.3.579.2.205Izharpj08188259 2.0.1.652051.3.579.2.531 Social History DateTypeDetailFacilityStart: 01-06-2024 End: 49-66-3154Bvcnkgt smoking status NHISEx-smoker (finding)[facility] Hospitaltart: 15-69-2658Tei Assigned At Genesis HospitalTocc smoking statusNeverExecutive Urology of Fisher-Titus Medical CenteryStart: 05-09-2024 End: 84-01-6844Aye Assigned At [facility] Medical CenterTobacc smoking status NHISTobacco smoking consumption unknownNOMS HealthcareStart: 45-78-9184Qos assigned at birthNot on fileNOMS HealthcareStart: 05-09-2024 Tobacco smoking status NHISNever smoked tobaccoNOMS HealthcareStart: 05-09-2024 Tobacco use and exposureSmokeless tobacco non-userNOMS HealthcareStart: 05-09-2024 End: 01-81-8884Ximhwafzx beverage intakeEx-drinker (finding)[facility] Healthcare Start: 05-09-2024 End: 19-64-2897Qoenork of Social functionNOMS [facility] Comment on above:quit in 2009Tobao smoking status [facility] Start: 07-09-2016 End: 17-32-3449MqwSvtcre (finding)[facility] Goals DatePatient GoalDesired Activity/State Functional Status NwnmWpiebumpneCuhdcqXkpzeyre33-48-3174Wpifbnpgvg StatusNoOhiohealth [facility] Center01-17-2025Functional StatusN/AExecutive [facility] Clinical Notes 01-26-2024 to 12-05-2024 Note Date & VmqgJbkxJsduwtri69-94-8266 History of Present illness Narrative* John Mathews MD - 12/05/2024 10:50 AM EDT Subjective Patient ID: Vero Sadler is a 74 y.o. female who presents for Ear Problem (Ear pain/popping) Pt reports a 4 day h/o sinonasal congestion, ear popping, and cough. Pt states she had a temp to 100.1 till yesterday. Family History Problem Relation Name Age of Onset Cancer Mother Cancer Father Active Ambulatory Problems Diagnosis Date Noted A-fib ([facility]) 04/21/2022 Chest pain 07/27/2016 CKD (chronic kidney disease) stage 4, GFR 15-29 ml/min ([facility]) 01/26/2024 Clinical trial exam 04/23/2022 Dyspnea 07/27/2016 Edema 07/27/2016 Essential hypertension 01/25/2020 Fatigue 07/27/2016 Hyperkalemia 01/26/2024 Lightheadedness 07/27/2016 Lower abdominal pain 01/30/2022 Nonsustained paroxysmal ventricular tachycardia (HCC) 11/30/2022 Obstructive sleep apnea syndrome 10/02/2022 Other secondary pulmonary hypertension ([facility]) 12/15/2022 Secondary hyperparathyroidism ([facility]) 01/26/2024 Spinal stenosis of lumbar region with neurogenic claudication 01/30/2022 Spondylosis of lumbosacral region without myelopathy or radiculopathy 01/30/2022 Symptomatic bradycardia 01/01/2023 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 VT (ventricular tachycardia) ([facility]) 04/29/2022 Aspirin long-term use 05/09/2024 CAD (coronary artery disease) 05/09/2024 Chronic obstructive pulmonary disease ([facility]) 05/09/2024 Former smoker 05/09/2024 History of colon polyps 05/09/2024 History of tobacco abuse 05/09/2024 Hypercholesterolemia 05/09/2024 Hypothyroidism 05/09/2024 Kidney stones 05/09/2024 Morbid obesity ([facility]) 05/09/2024 Multiple pulmonary nodules 05/09/2024 Stage 3a chronic kidney disease ([facility]) 01/31/2024 Status post lumbar spine operation 05/09/2024 Stress incontinence, female 05/09/2024 Intrinsic sphincter deficiency (ISD) 09/11/2024 Body mass index (BMI) 45.0-49.9, adult ([facility]) 10/24/2024 Resolved Ambulatory Problems Diagnosis Date Noted No [...] Reactions Penicillins Other Reaction(s): Other Yeast infection Fluticasone Headache Other Reaction(s): Unknown Current Outpatient Medications on File Prior to Visit Medication Sig Dispense Refill albuterol HFA 90 mcg/act inhaler Inhale 2 puffs every 4 (four) hours if needed aspirin 81 MG EC tablet Take 81 mg by mouth in the morning. Calcium Carb-Cholecalciferol 600-10 MG-MCG tablet TAKE TWO TABLETS BY MOUTH IN THE MORNING carvedilol (Coreg) 12.5 MG tablet TAKE 1 TABLET BY MOUTH TWICE A DAY WITH FOOD FOR 90 DAYS clotrimazole-betamethasone (Lotrisone) cream APPLY A SMALL AMOUNT TO AFFECTED AREA TWICE A DAY *USESPARINGLY* levothyroxine (Synthroid, Levoxyl) 100 MCG tablet Take 100 mcg by mouth in the morning. Take beforemeals. liothyronine (Cytomel) 25 MCG tablet Take 1.5 tablets by mouth in the morning. lisinopril 10 MG tablet Take 10 mg by mouth in the morning. lovastatin (Mevacor) 20 MG tablet Take 20 mg by mouth in the morning. magnesium oxide (Mag-Ox) 400 MG tablet Take 1 tablet by mouth in the morning. [DISCONTINUED] cephalexin (Keflex) 500 MG capsule TAKE 1 CAPSULE BY MOUTH EVERY 12 HOURS FOR 5 DAYS Azelastine HCl 137 MCG/SPRAY solution every 12 (twelve) hours (Patient not taking: Reported on 12/05/2024) doxycycline (Monodox) 100 MG capsule (Patient not taking: Reported on 12/05/2024) traMADol (Ultram) 50 MG tablet (Patient not taking: Reported on 12/05/2024) No current facility-administered medications on file prior to visit. Objective Last Recorded Vitals Vitals: 12/05/24 1045 BP: (!) 160/94 Pulse: 75 ENT Physical Exam Ear Ear comments: RT -0 TIP&P, dry. LT normal Nose External Nose: nares patent bilaterally; external nose normal; Internal Nose: nasal mucosa normal; septum normal; bilateral inferior turbinates normal; Assessment/Plan Diagnoses and all orders for this visit: Acute URI - azithromycin (Zithromax Z-Maicol) 250 MG tablet; Take 2 tabs (500 mg) by mouth today, then 1 tab (250 mg) daily for 4 days. ETD (Eustachian tube dysfunction), right Z-pack for URI. Tube looks good. documented in this encounterSt. Louis Behavioral Medicine [id number] NoteUT Cardiology Consult Note Reason for visit: [...] kidney disease COPD (chronic obstructive pulmonary disease) ([facility]) Hypertension Myocardial infarction ([facility]) Obstructive sleep apnea 10/02/2022 SOBIA=17.7 events/hour; Pranav SaO2=76%; Ucuhxk=165.0 lbs; BMI=52.7 kg/m2, Home Sleep Apnea Testing on 09/25/2022 at [facility] PSH: Past Surgical History: Procedure Laterality Date CARDIAC CATHETERIZATION COLONOSCOP (more content not included)...[facility] 09-11-2024 History of Present illness Narrative* John Mathews MD - 09/11/2024 1:30 PM EDT Subjective [...] Active Ambulatory Problems Diagnosis Date Noted A-fib ([facility]) 04/21/2022 Chest pain 07/27/2016 CKD (chronic kidney disease) stage 4, GFR 15-29 ml/min ([facility]) 01/26/2024 Clinical trial exam 04/23/2022 Dyspnea 07/27/2016 Edema 07/27/2016 Essential hypertension 01/25/2020 Fatigue 07/27/2016 Hyperkalemia 01/26/2024 Lightheadedness 07/27/2016 Lower abdominal pain 01/30/2022 Nonsustained paroxysmal ventricular tachycardia (HCC) 11/30/2022 Obstructive sleep apnea syndrome 10/02/2022 Other secondary pulmonary hypertension (HCC) 12/15/2022 Secondary hyperparathyroidism (HCC) 01/26/2024 Spinal stenosis of lumbar region with neurogenic claudication 01/30/2022 Spondylosis of lumbosacral region without myelopathy or radiculopathy 01/30/2022 Symptomatic bradycardia 01/01/2023 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 VT (ventricular tachycardia) ([facility]) 04/29/2022 Aspirin long-term use 05/09/2024 CAD (coronary artery disease) 05/09/2024 Chronic obstructive pulmonary disease (HCC) 05/09/2024 Former smoker 05/09/2024 History of colon polyps 05/09/2024 History of tobacco abuse 05/09/2024 Hypercholesterolemia 05/09/2024 Hypothyroidism 05/09/2024 Kidney stones 05/09/2024 Morbid obesity ([facility]) 05/09/2024 Multiple pulmonary nodules 05/09/2024 Stage 3a chronic kidney disease ([facility]) 01/31/2024 Status post lumbar [...] will resolve without tx documented in this encounterSt. Louis Behavioral Medicine I[id number] NoteHistory: possible TIA Procedure: Multiplanar, multisequence imaging performed [...] consolidation right mastoid sinus Electronically signed: Estrada Raman.[facility] HospitalComment on above:Order Comment: Order in [id number] Hospital Discharge instructions Patient Education 08/21/2024 10:41:06 Urinary Incontinence Urinary Incontinence Urinary incontinence refers to a condition in which a person is unable to control where and when topass urine. A person with this condition will urinate involuntarily. This means that the person urinates when he or she does not mean to. What are the causes? This condition may be caused by: Medicines. Infections. Constipation. Overactive bladder muscles. Weak bladder muscles. Weak pelvic floor muscles. These muscles provide support for the bladder, intestine, and, in women,the uterus. Enlarged prostate in men. The prostate [...] a small amount, or constantly dribbling urine (overflowincontinence). Urinating because you cannot get to the [...] fiber include beans, whole grains, and fresh fruitsand vegetables. Behavioral changes, such as: ?Pelvic floor [...] nerve stimulation). ?For women, using a medical data analyst to prevent urine leaks. This is a small, tampon-like, disposabledevice that is inserted into the urethra. ?Injecting [...] right after experiencing incontinence. General instructions Take [id number] and prescription medicines only as told by [...] important. Where to find more information [employer] [place] [employer] and [employer]estive [employer] Kidney Diseases: www.niddk.nih.gov [employer]: www.urologyhealth.org Contact a health care [...] is unable to control where and when topass urine. This condition may be caused by medicines, infection, weak bladder muscles, weak pelvic floor muscles, enlargement of the prostate (in men), or surgery. Factors such as older age, obesity, and childbirth, menopause, neurological diseases, andchronic coughing may increase your risk for developing [...] provider. Document Revised: 10/04/2020 Document Reviewed: 10/04/2020 Elsevier Patient Education 2023 [employer] Follow Up Care 07/14/2024 09:39:25 With:ROSETTA MENDEZ MD, URL Address: When: Unknown [facility] 06-09-2025 NotePatient Education Urology Urinary Incontinence Urinary incontinence refers to a condition in which a person is unable to control where and when topass urine. A person with this condition will [...] move out of place and into the vagina.This movement can prevent the bladder and urethra [...] the bladder, urethra, and sphincter can store andrelease urine. There are different types of urodynamic [...] of moderate-intensity exercise every week. Ask your healthcare provider which activities are safe for you. [...] urges. This can include distraction techniques or controlledbreathing exercises. ??? Medicines, such as: ? Medicines to relax the bladder muscles and prevent bladder spasms. ? Medicines to help slow or prevent the growth of a man's prostate. ? Botox injections. These can help relax the bladder muscles. ??? Treatments, such as: ? Using pulses of electricity to help change bladder reflexes (electrical nerve stimulation). ? For women, using a medical data analyst to prevent urine leaks. This is a [...] your health care provider (more content not included)...[facility] 08-09-2024 History of Present illness Narrative* John Mathews MD - 08/09/2024 9:40 AM EDT Subjective Patient ID: Vero Sadler is a 74 y.o. female who presents for Ear Problem (S/p RT tube/Nasal ENDO [facility] 07/06/24) Pt reports for 2 1/2 weeks after tube placed she had severe RT milky otorrhea. Currently on mult abx for a LE infection. No family history on file. Active Ambulatory Problems Diagnosis Date Noted A-fib ([facility] 04/21/2022 Chest pain 07/27/2016 CKD (chronic kidney disease) stage 4, GFR 15-29 ml/min ([facility]) 01/26/2024 Clinical trial exam 04/23/2022 Dyspnea 07/27/2016 Edema 07/27/2016 Essential hypertension ([facility]) 01/25/2020 Fatigue 07/27/2016 Hyperkalemia 01/26/2024 Lightheadedness 07/27/2016 Lower abdominal pain 01/30/2022 Nonsustained paroxysmal ventricular tachycardia ([facility]) 11/30/2022 Obstructive sleep apnea syndrome 10/02/2022 Other secondary pulmonary hypertension 12/15/2022 Secondary hyperparathyroidism ([facility]) 01/26/2024 Spinal stenosis of lumbar region with neurogenic claudication 01/30/2022 Spondylosis of lumbosacral region without myelopathy or radiculopathy 01/30/2022 Symptomatic bradycardia 01/01/2023 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 VT (ventricular tachycardia) ([facility]) 04/29/2022 Aspirin long-term use 05/09/2024 CAD (coronary artery disease) ([facility]) 05/09/2024 Chronic obstructive pulmonary disease ([facility]) 05/09/2024 Former smoker 05/09/2024 History of colon polyps 05/09/2024 History of tobacco abuse 05/09/2024 Hypercholesterolemia ([facility]/HCC) 05/09/2024 Hypothyroidism ([facility]) 05/09/2024 Kidney stones 05/09/2024 Morbid obesity ([facility]CC) 05/09/2024 Multiple pulmonary nodules 05/09/2024 Stage 3a chronic kidney disease (HCC) ([facility]) 01/31/2024 Status post lumbar [...] for mild RT myringitis documented in this encounterSt. Louis Behavioral Medicine [id number] [place] [address] Colonoscopy Procedure Report Signed Patient: Vero Sadler MR#: [id number] : 1950 Acct:[id number] Age/Sex: 74 / F Adm Date: 5 Loc: Room: Type: [facility] Attending Dr: Kal Molina MD Copies to: MD Kal Bernard MD~ Colonoscopy Date/Provider 07/19/2024 Kal Molina MD Colonoscopy Findings: Procedure: Colonoscopy with polypectomy tattoo injection Indication: 74-year-old female with history of colonic polyps and family historyof colon cancer(both parents) here for colonoscopy for evaluation of rectal bleeding Pre-operative diagnosis: history of colonic polyps and family history of colon cancer(both parents) Post-operative diagnosis: Colonic polyps, diverticulosis, internal hemorrhoids. Sedation: propofol per anesthesia dept O2 oximetry, hemodynamic monitoring was performed pre, during, and post procedure. Patient was identified, H&P completed, patient was given full explanation of the procedure as well as associatedrisks and written consent wasobtained prior to procedure. Patient expressed complete understanding of the procedure as well as alternatives to the procedure and to anesthesia and agreed to proceed with the procedure as indicated. Patient was immediately reassessed prior to IV sedation. Under IV sedation, patient was placed in the left lateral decubitus position. Digital rectal exam was performed and normal. Colonoscope was inserted and passed proximally to the cecum, which was identified by the ileocecal valve, appendiceal orifice and cecal floor. Colonoscope was slowly withdrawnwith the findings as below. Rogers bowel prep score was good. Findings: Cecum: Normal. Ascending colon: 2 polyps (1-2 mm) removed using cold forceps Hepatic flexure: Normal. Transverse colon: 2 polyps (5-7 mm) removed using cold snare Splenic flexure: Normal. Descending colon: A 2.5 cm polyp removed piecemeal using hot snare then a clip was placed at the polypectomy site to prevent postpolypectomy bleeding. The area on the opposite wall of the polypectomysite was tattooed using black dye submucosal injection. A 1 mm polyp removed using cold forceps. Sigmoid colon: Diverticulosis Rectum: A 1 cm polyp removed using hot snare Retroflexed views: Rectum did show internal hemorrhoids. Biopsy taken: No Complications: None EBL: Minimal Recommendations: -Repeat colonoscopy in 6 months -Follow up pathology -Follow up with PCP Following a period of recovery, patient was seen and given full explanation of the procedure. Patient tolerated the procedure well and will be discharged in satisfactory, stable condition. Kal Molina M.D. Documented By: Kal Molina MD 07/19/24 1321 Signed By: 07/19/[address] [place], [place] [id number] [place] [address] Gastroenterology H&P Signed Patient: Vero Sadler MR#: [id number] : 1950 Acct:[id number] Age/Sex: 74 / F Adm Date: 5 Loc: Room: Type: [facility] Attending Dr: Kal Molina MD Copies to: MD Kal Bernard MD~ Date of Service: 07/19/2024 HISTORY & PHYSICAL: Patient's history with special attention to the cardiovascular, pulmonary systems and the current problem was reviewed with the patient immediately prior to the procedure. Present medications and doses reviewed in the EMR. Allergies and pertinent laboratory tests were also re viewedat this time in the EMR. The physical [...] Kal Molina MD 07/19/24 1319 Signed By: 07/19/[address] [facility]05-03-2025 NoteProgress Note-Physician Patient: VERO SADLER Age: 74 years Sex: Female : 1950 Associated Diagnoses: None Author: Pedro Walden MD Postoperative Information Postoperative disposition: Postoperative disposition: To PACU. Optimetrix number: Optimetrix number [id number]. Anesthetic utilized: General. Health Status Allergies: Allergic Reactions (Selected) Severity Not Documented Adhesive Bandage- Hives. Physical Examination VS/Measurements Pain Assessment: Controlled. General: Awake, Appropriate. Respiratory: Adequate air exchange. Cardiovascular: Stable. Neurological Assessment Anesthetic outcome No anesthetic complications noted. Adequate pain relief. Review / Management Condition: Stable. Plan Transfer/Discharge: Transfer/Discharge Discharge when meets criteria ( To home ).[facility] CenterComment on above:Result Comment: Electronically Signed By: Pedro Walden MD\.br\Date and Time Signed: 07/15/24 16:46 EDT 07-13-2024 Hospital Discharge instructions Patient Education 07/13/2024 10:40:08 Post Op Patient Instructions - FT (CUSTOM) Follow Up Care 05/19/2024 09:13:05 With:ROSETTA MENDEZ Address:Unknown When: Unknown Comments:1 month [facility] [id number] NotePatient Education - Text [facility]05-01-2025 Note Progress Note-Physician Patient: VERO SADLER Age: 74 [...] Problems Aspirin long-term use / SNOMED CT 7111280649 / Confirmed Atrial fibrillation / SNOMED CT 81635152 / Confirmed Bradycardia / SNOMED CT 34905412 / Confirmed CAD (coronary artery disease) / SNOMED CT 17770668 / Confirmed Chronic kidney disease due to hypertension.. / SNOMED CT 7045043623 / Confirmed Chronic kidney disease stage 3A. / SNOMED CT 3882846706 / Confirmed Chronic kidney disease stage 4 / SNOMED CT 0179952623 / Confirmed Chronic kidney disease, stage 3 / SNOMED CT 2003612963 / Confirmed Chronic obstructive pulmonary disease / SNOMED CT 55315680 / Confirmed Former smoker / SNOMED CT 99142182 / Confirmed History of colon polyps / SNOMED CT 8348409650 / Confirmed History of operative procedure on lumbar spinal structure / SNOMED CT 8426671471 / Confirmed History of tobacco abuse / SNOMED CT 5393355515 / Confirmed Hypercholesterolemia / SNOMED CT 64327071 / Confirmed Hyperkalemia / SNOMED CT 36613065 / Confirmed Hypertension / SNOMED CT 8235036801 / Confirmed Hypertensive disorder / SNOMED CT 7427075316 / Confirmed Hypothyroidism / SNOMED CT 16412862 / Confirmed Morbid obesity / SNOMED CT 519230833 / Confirmed Multiple pulmonary nodules / SNOMED CT 2699020371 / Confirmed Pulmonary hypertension / SNOMED CT 141337307 / Confirmed Spinal stenosis / SNOMED CT 624992276 / Confirmed Stress incontinence, female / SNOMED CT 413494027 / Confirmed Canceled: Kidney stones / SNOMED CT 694963358 pt denies, Active Problems (23) Aspirin long-term [...] selected or recorded. Fam (more content not included)...[facility] CenterComment on above: Result Comment: Electronically Signed By: Pedro Walden MD\.br\Date and Time Signed: 07/13/24 08:41 [id number] Evaluation + Plan noteExtracted from:Title: ANES Pre-operative Note uthor:Pedro Walden MDDate:07/12/24 Plan [place] [employer] (ASA) physical status classification: Class III. Anesthetic Preoperative Plan: Anesthesia Monitored anethesia care.[facility] 04-15-2025 Evaluation note* Diagnosis Onset Date Resolution Status Admit Date Anemia of renal disease acuteApril 2024 10:58amCKD (chronic kidney disease) stage 4, GFR 15-29 ml/minacuteApril 2024 10:58amHyperkalemiaacuteApril 2024 10:58am HyperlipidemiaacuteApril 2024 10:58amHypertensive chronic kidney disease with stage 1 through stage 4 chronic kiacuteApril 2024 10:58am HyperuricemiaacuteApril 2024 10:58amHypomagnesemiaacuteApril 2024 10:58amSecondary hyperparathyroidismacuteApril 2024 10:58am [facility] Work Phone: 1(694) 130-981204-08-2025 History of Present illness Narrative* John Mathews [...] Active Ambulatory Problems Diagnosis Date Noted A-fib ([facility]) 04/21/2022 Chest pain 07/27/2016 CKD (chronic kidney disease) stage 4, GFR 15-29 ml/min ([facility]/HCC) 01/26/2024 Clinical trial exam 04/23/2022 Dyspnea 07/27/2016 Edema 07/27/2016 Essential hypertension (CMS/HCC) 01/25/2020 Fatigue 07/27/2016 Hyperkalemia 01/26/2024 Lightheadedness 07/27/2016 Lower abdominal pain 01/30/2022 Nonsustained paroxysmal ventricular tachycardia ([facility]) 11/30/2022 Obstructive sleep apnea syndrome 10/02/2022 Other secondary pulmonary hypertension 12/15/2022 Secondary hyperparathyroidism ([facility]) 01/26/2024 Spinal stenosis of lumbar region with neurogenic claudication 01/30/2022 Spondylosis of lumbosacral region without myelopathy or radiculopathy 01/30/2022 Symptomatic bradycardia 01/01/2023 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[facility]/HCC) 01/05/2023 VT (ventricular tachycardia) ([facility]) 04/29/2022 Aspirin long-term use 05/09/2024 CAD (coronary artery disease) ([facility]) 05/09/2024 Chronic obstructive pulmonary disease ([facility]) 05/09/2024 Former smoker 05/09/2024 History of colon polyps 05/09/2024 History of tobacco abuse 05/09/2024 Hypercholesterolemia ([facility]) 05/09/2024 Hypothyroidism ([facility]) 05/09/2024 Kidney stones 05/09/2024 Morbid obesity ([facility]) 05/09/2024 Multiple pulmonary nodules 05/09/2024 Stage 3a chronic kidney disease (HCC) ([facility]) 01/31/2024 Status post lumbar [...] Hold ASA 10d preop documented in this encounterSt. Louis Behavioral Medicine [id number] NotePatient Education Obstetrics and Gynecology Kegel Exercises [...] provider. Document Revised: 07/10/2021 Document Reviewed: 07/10/2021 [employer] Patient Education ? 2023 [employer].[facility] 05-09-2024 NoteUT Cardiology Consult Note Reason for [...] kidney disease COPD (chronic obstructive pulmonary disease) ([facility]) Hypertension Myocardial infarction ([facility]) Obstructive sleep apnea 10/02/2022 SOBIA=17.7 events/hour; Pranav SaO2=76%; Fomkdz=267.0 lbs; BMI=52.7 kg/m2, Home Sleep Apnea Testing [...] Tobacco Use: Low Risk (05/09/2024) Received from [facility] Healthcare Patient History Smoking Tobacco Use: [...] Active Ambulatory Problems Diagnosis Date Noted A-fib ([facility]) 04/21/2022 Chest pain 07/27/2016 CKD (chronic kidney disease) stage 4, GFR 15-29 ml/min (CMS/HCC) 01/26/2024 Clinical trial exam 04/23/2022 Dyspnea 07/27/2016 Edema 07/27/2016 Essential hypertension (CMS/HCC) 01/25/2020 Fatigue 07/27/2016 Hyperkalemia 01/26/2024 Lightheadedness 07/27/2016 Lower abdominal pain 01/30/2022 Nonsustained paroxysmal ventricular tachycardia (CMS/HCC) 11/30/2022 Obstructive sleep apnea syndrome 10/02/2022 Other secondary pulmonary hypertension (CMS/HCC) 12/15/2022 Secondary hyperparathyroidism (CMS/HCC) 01/26/2024 Spinal stenosis [...] 05/09/2024 Stage 3a chronic kidney disease (HCC) ([facility]) 01/31/2024 Status post lumbar [...] possible cause of LAMBERT. documented in this encounterSt. Louis Behavioral Medicine [id number] Hospital Discharge instructions Follow Up Care 04/12/2024 08:02:27 With:ROSETTA MENDEZ MD, URL Address: When: Unknown [facility] [id number] Hospital Discharge instructions Patient Education 03/31/2024 15:09:50 [...] including vitamins, herbs, eye drops, creams, and xkxc-cow-pmwrvpj medicines. Any problems you or family members [...] provider tells you to take them. Taking tvps-civ-signppa medicines, vitamins, herbs, and supplements. Tests You [...] Follow these instructions at home: Medicines Take lymk-wcj-hashsxw and prescription medicines only as told by [...] provider. Document Revised: 11/12/2021 Document Reviewed: 10/11/2020 [employer] Patient Education 2023 [employer]. 03/31/2024 15:09:42 Injection Treatments for Urinary Incontinence [...] including vitamins, herbs, eye drops, creams, and brgl-gfk-mosojyg medicines. Any problems you or family members [...] provider tells you to take them. Taking fttr-zdd-wkwmhzz medicines, vitamins, herbs, and supplements. General instructions [...] provider. Document Revised: 10/04/2020 Document Reviewed: 10/04/2020 [employer] Patient Education 2023 [employer]. 03/31/2024 15:09:34 Kegel Exercises Kegel Exercises Kegel [...] provider. Document Revised: 07/10/2021 Document Reviewed: 07/10/2021 [employer] Patient Education 2023 [employer]. Follow Up Care 02/22/2024 14:36:40 With:BRYAN BELTRÁN, ROSETTA, FAUZIAL Address: When: Unknown [facility] 01-17-2025 NotePatient Education Obstetrics and Gynecology Kegel [...] provider. Document Revised: 07/10/2021 Document Reviewed: 07/10/2021 [employer] Patient Education ? 2023 [employer]. Urology Cystoscopy Cystoscopy is a procedure that [...] including vitamins, herbs, eye drops, creams, and netr-nww-mtduthf medicines. ??? Any problems you or family [...] tells you to take them. ??? Taking cmtu-mqa-xxabnbq medicines, vitamins, herbs, and supplements. Tests You may have an exam or testing, such as: ??? X-rays of the bladder, urethra, or kidneys. ??? CT scan of the abdomen or pelvis. ??? Urine tests to check for signs of infection. General instructions ??? Follow instructions fr (more content not included)...[facility]11-13-2024 [facility] Note Chief Complaint: Patient is here today for follow up [facility] ED visit. She was having chest [...] kidney disease, COPD (chronic obstructive pulmonary disease) ([facility]), Hypertension, Myocardial infarction ([facility]), and Obstructive sleep apnea [...] Rfl (more content not included)...[facility] Plan note No data available for this section [facility] Evaluation + Plan note Future Appointments Appointment Date:07/13/2024 09:00:00 AM Scheduled Provider: Location:[facility] Appointment Type:Surgery [facility] Evaluation + Plan note Future Appointments Appointment Date:02/20/2025 11:00:00 AM Scheduled Provider:ROSETTA MENDEZ MD Location:[facility] Appointment Type:URO Office Visit [facility] Evaluation note* Diagnosis Onset Date Resolution Status CKD (chronic kidney disease) stage 4, GF R 15-29 ml/min [id number] hyperparathyroidismacute Chronic kidney diseaseSelect [facility] Work Phone: Evaluation note* Diagnosis OME (otitis media with effusion), right- Primary Nonintractable headache, unspecified chronicity pattern, unspecified headache type documented in this encounter [facility] HealthcareEvaluation note* Diagnosis OME (otitis media with effusion), right- Primary ETD (Eustachian tube dysfunction), right 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 documented in [facility] encounter [facility]* Diagnosis Onset Date Resolution Status Admit Date Anemia of renal disease acuteApril 2024 10:58amCKD (chronic kidney disease) stage 4, GFR 15-29 ml/minacuteApril 2024 10:58amHyperkalemiaacuteApril 2024 10:58am HyperlipidemiaacuteApril 2024 10:58amHypertensive chronic kidney disease with stage 1 through stage 4 chronic kiacuteApril 2024 10:58am HyperuricemiaacuteApril 2024 10:58amHypomagnesemiaacuteApril 2024 10:58amSecondary hyperparathyroidismacuteApril 2024 10:58am [facility] Work Phone: Evaluation note* Diagnosis ETD (Eustachian tube dysfunction), right- Primary CSF otorrhea Chronic myringitis of right ear documented in this encounter [facility]Evaluation [facility]* Diagnosis ETD (Eustachian tube dysfunction), right- Primary Chronic mastoiditis, right documented in this encounter [facility]Evaluation [facility]* Diagnosis Onset Date Resolution Status Admit Date Anemia of renal disease acuteJuly 2024 11:03amCKD (chronic kidney disease) stage 4, GFR 15-29 ml/minacuteJuly 2024 11:03amHyperkalemiaacuteJuly 2024 11:03am HyperlipidemiaacuteJuly 2024 11:03amHypertensive chronic kidney disease with stage 1 through stage 4 chronic kiacuteJuly 2024 11:03amHyperuricemia acuteJuly 2024 11:03amHypomagnesemiaacuteJuly 2024 11:03amSecondary hyperparathyroidismacuteJuly 2024 11:03am [facility] Work Phone: Evaluation note* Diagnosis Acute URI- Primary Acute upper respiratory infections of unspecified site ETD (Eustachian tube dysfunction), right documented in this encounter [facility] HealthcareHistory and physical note Author Kal Molina [facility] HospitalNote Date/TimeMay 2024 1:20pm[place] [address] Gastroenterology H&P Signed Patient: Vero Sadler MR#: [id number] : 1950 Acct:[id number] Age/Sex: 74 / F Adm Date: 5 Loc: Room: Type: [facility] Attending Dr: Kal Molina MD Copies to: MD Kal Bernard MD~ Date of Service: 07/19/2024 HISTORY & PHYSICAL: Patient's history with special attention to the cardiovascular, pulmonary systems and the current problem was reviewed with the patient immediately prior to the procedure. Present medications and doses reviewed in the EMR. Allergies and pertinent laboratory tests were also re viewedat this time in the EMR. The physical [...] signed by Kal Molina MD> 07/19/24 1320 [facility] Work Phone: Hospital Discharge instructions No data available for this section [facility] Progress note No data available for this section [facility] Reason for referral (narrative)No reason for referral information availableLima Memorial Hospital Work Phone: Summary Purpose Family History No Family History Records Found Relationship Condition Age at Onset Recorded Date/T des father Malignant neoplasm Unknown motherAbscess of intestine due to Crohn's diseaseUnknownMalignant neoplasm Unknown Relationship Condition Age at Onset Recorded Date/T des father Malignant neoplasm of colon Unknown HypertensionUnknownmotherMalignant neoplasm of rectumUnknownHeart diseaseUnknown Abscess of intestine due to Crohn's diseaseUnknownPresence of cardiac pacemaker UnknownUlcerative colitisUnknowndaughterMalignant neoplasm of pancreasUnknown Advance Directives No Advanced Directives Records Found Advance Directive Response Recorded Date/ Time Advance Directives No January 06, 2024 12:45pm Chief Complaint and Reason for Visit Chief Complaint RENAL CKD 3 Reason for Visit CKD (chronic kidney disease) stage 4, GFR 15-29 ml/min Hyperkalemia [id number] Secondary hyperparathyroidism Chronic kidney disease Chief Complaint [...] DATE CREATED AUTHOR 09/08/2017 [facility] DATE CREATED AUTHOR AUTHOR'S ORGANIZ ATION 09/27/2020 [facility] DATE CREATED AUTHOR AUTHOR'S ORGANIZ ATION 07/24/2022 [facility] DATE CREATED AUTHOR AUTHOR'S ORGANIZ ATION 06/27/2024 [facility] DATE CREATED AUTHOR AUTHOR'S ORGANIZ ATION 09/13/2024 [facility] DATE CREATED AUTHOR AUTHOR'S ORGANIZ ATION 10/11/2024 [facility] DATE CREATED AUTHOR AUTHOR'S ORGANIZ ATION 11/01/2024 [facility] DATE CREATED AUTHOR AUTHOR'S ORGANIZ ATION 11/15/2024 [facility] [facility] DATE CREATED AUTHOR AUTHOR'S ORGANIZ ATION 12/06/2024 [facility] EPIC Care Teams (unrecognized sec tion and content) Team Status: Active Member Role Status Dates Debbie Bhatia MD Primary Care Provider Active Team Status: Inactive Member Role Status Dates Debbie Bhatia MD Primary Care Provider Active Start: June 27, 2024 End: June 27Rebecca Flower ProviderActiveStart: June 27, 2024 End: June 27, 2024 Team Status: Inactive Member Role Status Dates Debbie Bhatia MD Primary Care Provider Active Start: July 19, 2024 End: July 19, 2024Rebecca Samson ProviderActiveStart: July 19, 2024 End: July 19, 2024 Team Status: Active Member Role Status Dates Debbie Bhatia MD Primary Care Provider Active Start: July 19, 2024 Rebecca Samson ProviderActiveStart: July 19, 2024 Kal Molina MDOther ProviderActiveStart: July 19, 2024 Team Status: Inactive Member Role Status Dates Debbie Bhatia MD Primary Care Provider Active Start: September 22, 2024 End: September 22bdul Sarbjit , MDAttending ProviderActiveStart: September 22, 2024 End: September 22, 2024 Team Status: Active Member Role Status Dates Debbie Bhatia MD Primary Care Provider Active Start: June 20, 2024 Lizette Sarbjit , MDAttending ProviderActiveStart: June 20, 2024 Team Status: Inactive Member Role Status Dates Debbie Bhatia MD Primary Care Provide r, Referring Provider Active Start: January 06, 2024 End: January 05bdul Sarbjit , MDAttending ProviderActiveStart: January 06, 2024 End: January 06, 2024Team MemberRelationshipSpecialtyStart DateEnd Date Debbie Bhatia MD [address] [phone] PCP - GeneralFamily Medicine05/09/24Team MemberRelationshipSpecialtyStart DateEnd Date Debbie Bhatia MD [address] [phone] PCP - GeneralFamily Medicine05/09/24Team MemberRelationshipSpecialtyStart DateEnd Date Debbie Bhatia MD [address] [place] [address] PCP - GeneralFamily Medicine05/09/24Team MemberRelationshipSpecialtyStart DateEnd Date Debbie Bhatai MD [address] [place] [address] PCP - GeneralFamily Medicine05/09/24 Team Status: Active Member Role Status Dates Debbie Bhatia MD Primary Care Provider Active Start: July 19, 2024 Imad Asaad , MDAttending Provider, Other ProviderActiveStart: July 19, 2024 Team MemberRelationshipSpecialtyStart DateEnd Date Debbie Bhatia MD [address] [place] [address] PCP - GeneralFamily Medicine08/02/24Team MemberRelationshipSpecialtyStart DateEnd Date Debbie Bhatia MD [address] [place] [address] PCP - Generalmi Medicine08/02/24Team MemberRelationshipSpecialtyStart DateEnd Date Debbie Bhatia MD [address] [place] [address] PCP - GeneralFami Medicine08/02/24Team MemberRelationshipSpecialtyStart DateEnd Date Debbie Bhatia MD [address] [place] [address] PCP - Generalmi Medicine08/02/24Team MemberRelationshipSpecialtyStart DateEnd Date Debbie Bhatia MD [address] [place] [address] PCP - GeneralFami Medicine08/02/24 Team Status: Inactive Member Role Status Gabo Bhatia MD Primary Care Provider Active Start: October 05, 2024 End: October 05bdul Sarbjit , MDAttending ProviderActiveStart: October 05, 2024 End: October 05, 2024Team MemberRelationshipSpecialtyStart DateEnd Date Debbie Bhatia MD [address] [place] [address] PCP - GeneralFamily Medicine08/02/24 Goals (unrecognized section and content) Goals may be documented in a n alternate section No data available for this section No data available for this section No data available for this sectionGoals may be documented in an alternate section No data available for this section No data available for this section Reason for Visit (unrecogniz ed section and content) ReasonCommentsEar ProblemAudio 05/04/24 schmidbauerReasonCommentsEar Problem6 week check ears/ sinus XR [facility] 05/09/24ReasonCommentsEar ProblemS/p RT tube/Nasal ENDO [facility] 07/06/24ReasonCommentsEar ProblemFollow up CT Temporal TBHReasonComments Ear ProblemEar pain/popping FOR RECORDS PERTAINING TO PATIENTS WHO ARE [...] BE BASED ON THE PRIMARY CLINICAL RECORDS. [facility] [employer] [facility]. provides no warranty or guarantee of the accuracy or completeness of information in this document.
[2025-01-17 17:01] LABS: Hematocrit 38.3 % (36.0-48.0); Hemoglobin 12.1 g/dL (12.0-16.0); Immature Granulocytes Abs Auto 0.02 10^3/uL (0.00-0.03); Immature Granulocytes Pct Auto 0.3 % (0.0-0.5); Lymphocytes Absolute Auto 1.6 10^3/uL (1.2-3.8); Mean Corpuscular HGB Conc 31.6 g/dL (29.9-35.2); Mean Corpuscular Hemoglobin 30.0 pg (26.7-34.0); Mean Corpuscular Volume 95.0 fL (81.0-99.0); Platelet Count 226 10^3/uL (150-450); Red Blood Count 4.03 10^6/uL (4.20-5.40); Reticulocyte Pct Auto 1.51 % (0.60-3.10); White Blood Count 7.6 10^3/uL (4.0-11.0)
[2025-01-17 17:48] LABS: Alanine Aminotransferase 14 U/L (14-59); Albumin Globulin Ratio 0.9; Albumin Level 3.2 g/dL (3.4-5.0); Alkaline Phosphatase 91 U/L (46-116); Anion Gap 13.2; Aspartate Amino Transferase 12 U/L (15-37); Blood Urea Nitrogen 31.0 mg/dL (7.0-18.0); Calcium 9.3 mg/dL (8.5-10.1); Carbon Dioxide 25.6 mmol/L (21.0-32.0); Chloride 108 mmol/L (98-107); Estimated GFR (African America 31 (>=60 mL/min/1.73m^2); Estimated GFR (Non-African Ame 26 (>=60 mL/min/1.73m^2); Globulin 3.7 g/dL; Glucose 127 mg/dL (74-106); Iron 32.0 ug/dL (50.0-170.0); Percent Iron Saturation 12.6 %; Potassium 4.8 mmol/L (3.5-5.1); Sodium 142 mmol/L (136-145); Total Iron Binding Capacity 253.0 ug/dL (250.0-450.0); Total Protein 6.9 g/dL (6.4-8.2)
[2025-01-17 18:03] LABS: Ferritin 110.0 ng/mL (8.0-252.0)
[2025-01-19 06:08] LABS: Vitamin B12 371 pg/mL (232-1245)
== END 2025-01-17 16:44 | disposition home or self-care (01) ==
LOC: LAB 16:43
PROVIDERS: PCP Family Medicine; Visit Provider Internal Medicine Hematology & Oncology
DX: D64.9 Anemia, unspecified (principal); D63.1 Anemia in chronic kidney disease
CPT/HCPCS: 36415; 80053; 82607; 82728; 83540; 83550; 83615; 85025; 85045; 85652; 86140

== ENCOUNTER 2025-01-23 08:53 | Outpatient (RCR) | payer MEDICARE, SELFPAY | END 2025-02-11 23:59 | disposition home or self-care (01) | LOC: HEMC 08:53 | PROVIDERS: PCP Family Medicine; Visit Provider Internal Medicine Hematology & Oncology | DX: D64.9 Anemia, unspecified (principal); R10.84 Generalized abdominal pain; R63.4 Abnormal weight loss; R10.32 Left lower quadrant pain; D63.1 Anemia in chronic kidney disease; N18.4 Chronic kidney disease, stage 4 (severe); R79.89 Other specified abnormal findings of blood chemistry | CPT/HCPCS: G0463 ==

== ENCOUNTER 2025-01-26 08:00 | Outpatient (OUT) | payer MEDICARE, SELFPAY ==
--- OUTSIDE RECORDS SUMMARY | 2024-08-15 06:15 | XMS_ITS ---
Author Organization The [facility] in [place] Address [address] [place] [address] Care Team Providers Care Supervisor Jewelry Department Name Role Phone Dontrell Arvizu Primary Care Provider Beatriz Campos Unavailable [phone] REASON FOR VISIT MD Encounters Encounter Location Date Provider Diagnosis [facility] Oncology [address] [place] [address] 08/15/2024 Beatriz Campos Plan Of Treatment No Information Progress Notes * Vero COLLINS MDOB:[birth year] (74 yo F)Acc No.[id number]:08/15/2024 UNLOCKED PROGRESS NOTE Progress Notes Patient: Vero FIELD :Juliann Campos M.D.:1950???Age:74 Y ???Sex:FemaleDate:08/15/2024Phone:[phone]:[address]Pcp:Dontrell rAvizu Subjective: * Chief Complaints: * 1 . MD. * Medical History: Objective: * Vitals: Assessment: Plan: * Treatment: * * Electronic signature of Beatriz Campos MD, [id number] on 01/26/2025 at 08:03 AM ESTSign off status: PendingVisit Status:?CANC (Cancelled) * Provider: Noel Campos M.D. Date: 0 08/15/2024 Generated for Printing/Faxing/eTransmitting on:?01/26/2025 08:03 AM EST
--- OUTSIDE RECORDS SUMMARY | 2024-08-15 10:00 | XMS_ITS ---
Author Organization The [facility] in [place] Address [address] [place] [place] [address] Care Team Providers Care Rental Management Trainee Name Role Phone Dontrell Arvizu Primary Care Provider Beatriz Campos Unavailable [phone] REASON FOR VISIT MD Encounters Encounter Location Date Provider Diagnosis The [facility] Oncology [address] [place] [address] 08/15/2024 Beatriz Campos Plan Of Treatment No Information Progress Notes * Vero COLLINS MDOB:[birth year] (74 yo F)Acc No.[id number]:08/15/2024 UNLOCKED PROGRESS NOTE Progress Notes Patient: Vero FIELD :Juliann Campos M.D.:1950???Age:74 Y ???Sex:FemaleDate:08/15/2024Phone:[phone]:[address]Pcp:Dontrell Arvizu Subjective: * Chief Complaints: * 1 . MD. * Medical History: Objective: * Vitals: Assessment: Plan: * Treatment: * * Electronic signature of Beatriz Campos MD, [id number] on 01/26/2025 at 08:02 AM ESTSign off status: PendingVisit Status:?CANC (Cancelled) * Provider: Noel Campos M.D. Date: 0 08/15/2024 Generated for Printing/Faxing/eTransmitting on:?01/26/2025 08:02 AM EST
--- OUTSIDE RECORDS SUMMARY | 2024-08-22 10:00 | XMS_ITS ---
Author Organization [facility] in [place] Address [address] [place] [address] Care Team Providers Care Clam Bed Laborer Name Role Phone Dontrell Arvizu Primary Care Provider Beatriz Campos Unavailable [phone] REASON FOR VISIT MD Encounters Encounter Location Date Provider Diagnosis [facility] Oncology [address] [place] [address] 08/22/2024 Beatriz Campos Plan Of Treatment No Information Progress Notes * Vero COLLINS MDOB:[birth year] (74 yo F)Acc No.[id number]:08/22/2024 UNLOCKED PROGRESS NOTE Progress Notes Patient: Vero FIELD :Juliann Campos M.D.:1950???Age:74 Y ???Sex:FemaleDate:08/22/2024Phone:[phone]:[address]Pcp:Dontrell Arvizu Subjective: * Chief Complaints: * 1 . MD. * Medical History: Objective: * Vitals: Assessment: Plan: * Treatment: * * Electronic signature of Beatriz Campos MD, [id number] on 01/26/2025 at 08:02 AM ESTSign off status: PendingVisit Status:?ANSPH (Voice) * Provider: Noel Campos M.D. Date: 0 08/22/2024 Generated for Printing/Faxing/eTransmitting on:?01/26/2025 08:02 AM EST
--- OUTSIDE RECORDS SUMMARY | 2025-01-22 06:02 | XMS_ITS | Continuity of Care Document ---
Author Organization [facility] Address [address] [place] [address] Phone Care Team Providers Care Airplane Pilot Crop Dusting Name Role Phone Jeremiah Arvizu MD Primary Care Provider Kal Molina MD Attending Provider [phone] Kal Molina MD Other Provider Care Teams Patient Care Team Team Status: Active Member Role/Relationship Status Dates Jeremiah Arvizu MD Primary Care Provider Active Patient Care Team Team Status: Active Member Role/Relationship Status Dates Jeremiah Arvizu MD Primary Care Provider Active Start: January 22, 2025 Kal Molina MDAttending ProviderActiveStart: January 22, 2025 Kal Molina MDOther ProviderActiveStart: January 22, 2025 Chief Complaint and Reason for Visit Chief Complaint Admit Date hx of colon polyps January 22, 2025 7:08am Allergies, Adverse Reactions, Alerts Allergen Type Severity Reaction Last Updated Verified Status Comments adhesive tape Allergy Unknown skin rash January 222024 7:26am Yes Active fluticasoneAllergyUnknownHeadacheNovember 2024 7:26amYesActivePenicillins Adverse ReactionMildUnknown ReactionNovember 2024 7:26amYesActiveyeast infection Social History Smoking Status Status Start Date End Date Date of Observa tion Ex-smoker (finding) January 22, 2025 7:28am Observation Status Observation Response Date of Response Legal Sex Female (finding) Sex Assigned At BirthFemaleDecember 1949 Family History Relationship Condition Age at Onset Recorded Date/T des father Malignant neoplasm of colon Unknown HypertensionUnknownmotherMalignant neoplasm of rectumUnknownHeart diseaseUnknown Abscess of intestine due to Crohn's diseaseUnknownPresence of cardiac pacemaker UnknownUlcerative colitisUnknowndaughterMalignant neoplasm of pancreasUnknown Problems Active Problems Problem Diagnosis/Recorded Date Onset Date Stat us Secondary hyperparathyroidism January 06, 2024 12:51 pm Unknown Active CKD (chronic kidney disease) stage 4, GFR 15-29 ml/min January 06, 2024 12:50pm Unknown Active Hypertensive chronic kidney disease with stage 1 through stage 4 chronic kidney disease, or unspecified chronic kidney disease January 06, 2024 12:50pm Unknown Active Hyperlipidemia January 07, 2024 10:12am Unknown Active Hyperuricemia February 14, 2024 11:17am Unknown Active Cardiac pacemaker February 14, 2024 11:07am Unknown Active Anemia of renal disease February 14, 2024 11:17am Unk nown Active Hyperkalemia January 06, 2024 12:51pm Unknown A ctive Hypomagnesemia February 14, 2024 11:17am Unknown Active Medications Medication Status Dose Units Route Directions Qty Days Refills S tart Date Stop Date End Date Reason(s) Instructions Adherence Peg 3350-Electrolytes (Golytely) 236-22.74-6.74 -5.86 gram recon soln Discontinued 240 ML PO Q10M 4000 1 0 June 27, 2024 11:00pm July 19, 2024 10:28amfollow instructions given at [facility] 3350-Electrolytes (Golytely) 236-22.74-6.74 -5.86 gram recon lgheNlbcuettzknu778IRBVI50J832071Krj 2024 11:00pmNovember 2024 7:26amuntil fecal effluent is clearCalcium Carbonate-Vitamin D3 600 mg-10 mcg (400 unit) tabletActive0.ROUTE.YVXSDAK5600 October 23, 2024 10:49amTAKE TWO TABLETS BY MOUTH IN THE MORNINGComplies with drug therapyMagnesium Oxide 400 mg (241.3 mg magnesium) tabletActive0.ROUTE .KEEZXBK548Comvlu 11th, 2025 10:51amTAKE 1 TABLET BY MOUTH DAILYComplies with drug therapyLiothyronine 25 mcg tjqathGydxrb20.5MCGPODailyOct2023 11:00pmComplies with drug therapyLovastatin 20 mg luliepPebdxq32OIIAWlynmDmmmmtr 23rd, 2024 11:00pmComplies with drug therapyLevothyroxine 100 mcg capsule Ttyvghdjqnqo330UZIABIyggpNtraptu 23rd, 2024 11:00pmApril 2024 10:17am Hydralazine 100 mg obwgtnAtuchwoqassw113IREYPunfl times dailyOct2023 11:00pmJuly 2024 10:10amAspirin (Adult Low Dose Aspirin) 81 mg tablet,delayed release (DR/EC)Oybeby53PUGNCjxklYzmcwcy 23rd, 2024 11:00pm Complies with drug therapyCarvedilol 25 mg knfqvuCxscgj10.5MGPOTwice daily January 05, 2024 11:00pmComplies with drug therapyHyoscyamine Sulfate 0.125 mg tabletDiscontinued0.125MGPOFour times dailyOctkentucky [facility] 2023 11:00pmDecember 2023 11:04amPantoprazole 40 mg tablet,delayed release (DR/EC)Fbcgdujfwkol69 MGPODailyOct2023 11:00pmApril 2024 10:19amClotrimazole- Betamethasone 1-0.05 % zieyuIjvihs2UHQFEQMDLSSZLUxavb as needed for rashOct2023 11:00pmComplies with drug therapyBumetanide 1 mg juhiivJnecmz4HWUTYq DirectedOct2023 11:00pmComplies with drug therapyAlbuterol Sulfate 90 mcg/actuation HFA aerosol gepclyzXyfaez9CGDKEBCCYMIZDIGroz times daily as needed for shortness of breath or wheezingJanuary 05, 2024 11:00pmComplies with drug therapyAlbuterol Sulfate 2.5 mg /3 mL (0.083 %) solution for nebulizationActive 2.5MGINHALATIONEVERY 4-6 HOURS as needed for shortness of breath or wheezing January 05, 2024 11:00pmComplies with drug therapyCalcium Carbonate-Vitamin D3 600 mg-10 mcg (400 unit) dgcnpmUcpegibgiqkg8NQZZPBuarm morningOctober 2023 11:00pmApril 2024 10:58amLisinopril 10 mg jbeaxvWxjhuy79XRGKAuqszZnamhkj 2023 11:00pmComplies with drug therapyTramadol 50 mg dklftcAnicxncvcfks65 MGPOTwice daily as neededOctober 2023 11:00pmApril 2024 10:19amSod Picosulf-Mag Ox-Citric Ac (Clenpiq) 10 mg-3.5 gram- 12 gram/160 mL solution DiscontinuedMLPOTwice dailyOctober 2023 11:00pmDecemb2023 11:05am FreeTextSiml at 3pm, 160ml at 9pm the day prior to colonoscopy Orally BID; Note: Source Status: Start; Refills: 0; Qty: 1 Box; Provider: Musa May Pantoprazole 40 mg tablet,delayed release (DR/EC)Dyjpyq44HFKUMdnuq dailyApril 2024 10:17amComplies with drug therapyHydralazine 100 mg pshikfPkgewa511WX POTwice dailyJuly 2024 10:09amComplies with drug therapySodium Polystyrene Sulfonate nocxcdEhnexphgbrlk39TUFY4 Times a weekDece2023 12:00amApril 2024 10:57amLevothyroxine 88 mcg tetwllUavfid61WGFMKLavimAzozq 2024 11:00pmComplies with drug therapySodium Polystyrene Sulfonate powderDiscontinued 80YGDW4 Times a floo5741Rjcov 2024 10:56amApril 2024 12:04pmCalcium Carbonate-Vitamin D3 600 mg-10 mcg (400 unit) entoojLpakzwoqjups2JHMLVDmocz vmjtvqt3035Bckez 15th, 2025 10:57amApril 2024 11:27amCalcium Carbonate- Vitamin D3 600 mg-10 mcg (400 unit) mrqaneEmhvgyafwopu7OYOAFWsper rhjrcmw0143 June 27, 2024 11:27amAugust 2024 10:50amMagnesium Oxide 400 mg magnesium wvekksDqfjepenmcpt143TCDGSelpl713Ivlob 2024 11:00pmAugust 2024 10:51amSodium Polystyrene Sulfonate qkqimoTtadvg57DFRW7 Times a gqac7606 June 27, 2024 12:04pmComplies with drug therapy Vital Signs Vital Reading Result Reference Range Collection Date/Time Height 65 [in_i] January 22, 2025 7:07qlMnoncz452.27 kgNov2024 7:39amHeart Rate78 /psk60-946MazmtktnJanuary 22, 2025 9:10amRespiratory rate16 /dts72-24CzsttvvrJanuary 22, 2025 9:10amOxygen saturation by Pulse uzslswlq27 %95-100January 22, 2025 9:10amBP Fexhvmxq582 mm[Hg]100-140January 22, 2025 9:10amBP Ilwnfziav21 mm[Hg]60-100Nov2024 9:10am Advance Directives Advance Directive Response Recorded Date/ Time Advance Directives No January 06, 2024 11:45am Insurance Providers Guarantor Vero Anatone Address [address] [facility] [address]Sepqzgg Info.Home Phone: Coverage Status Update:2024 Payer Group Member ID Coverage Type Subscriber Relationship to Subscriber Effective Date Expiration Date Cameron AUGUSTINE [id number] [employer] Id: [id number] [address] [facility] [address] Home Phone: SelfMedicare Plan [id number] Anat[place] Id: [id number] [address] [facility] [address] Home Phone: Self Encounters Encounter Location(s) Arrival/Admit Date Discharge/Departure Date Discharge/Departure Disposition Provider(s) Non-patient / Non-visit -[facility] 2024 7:08am Kal Molina MD Plan of Treatment Future Tests Future scheduled test information is unavailable Pending Tests Pending diagnostic test information is unavailable Future Visits Future appointment information is unavailable Future Procedures Procedure Name Ordered Date Scheduled Date Discharge Order January 22, 2025 8:38am Novem 2024 8:38am Future Medications Future medication information is unavailable Patient Instructions Instruction Admit Date [facility] Diverticulosis Dis charge Instructions [facility] Hemorrhoids Discharge Instructions Know your Meds [facility] Colon Polypectomy Discharge InstructionsJanuary 22, 2025 7:08am Hospital Discharge Instructions Additional Instructions DISCHARGE INSTRUCTIONS FOR COLONOSCOPY WHAT TO EXPECT: - You may feel full, gassy or cramping after your procedure. In some cases, this may be from a few hours to a day. Walking may help relieve the discomfort. - If you have polyp(s) removed you may note some minor bloody discharge after your first bowel movements. - You should begin to recover from anesthesia within 1 hour of the procedure, however may feel groggy for the next 24 hours. DO's AND DON'Ts: - Call your doctor right away if you have a hard abdomen, severe pain, are passing lots of bright red blood or clots. - Call your doctor if you develop any rashes, hives or difficulty breathing. - Let your doctor know if you have not had a bowel movement by 3 days after your procedure. - If you take 81 mg aspirin for your heart it is safe to resume this medication. - If you take other blood thinner medications your doctor will instruct you when these can safely be resumed. - Do NOT drive for 24 hours. - Do NOT operate machinery such as power tools, lawn mowers, snow blowers, sewing machines, etc. for 24 hours. - Avoid alcoholic beverages and drugs for allergies, nerves, or sleep. - Do NOT stay alone. Do NOT leave your child unattended. - Do NOT make important personal or business decisions or sign any legal documents. - Eat solid foods and drink liquids in smaller amounts than usual until normal appetite returns. If you should experience an upset stomach, liquids high in sugar content (soda, Wilfrido-Aid, non-acid juices) are recommended. - You can resume normal activities tomorrow. FOLLOW UP & RECOMMENDATIONS: -Notify the doctor if you have any problems. -Repeat colonoscopy in 3 years. -Follow up with PCP. -Office number [phone].
--- OUTSIDE RECORDS SUMMARY | 2025-01-23 04:30 | XMS_ITS ---
Author Organization [facility] in [place] Address [address] [place] [address] Care Team Providers Care Calender Feeder Name Role Phone Dontrell Arvizu Primary Care Provider Beatriz Campos Unavailable [phone] REASON FOR VISIT MD Encounters Encounter Location Date Provider Diagnosis [facility] Oncology [address] [place] [address] 01/23/2025 Beatriz Campos Plan Of Treatment No Information Progress Notes * Vero COLLINS MDOB:[birth year] (74 yo F)Acc No.[id number]:01/23/2025 UNLOCKED PROGRESS NOTE Progress Notes Patient: Vero FIELD :Juliann Campos M.D.:1950???Age:74 Y ???Sex:FemaleDate:01/23/2025Phone:[phone]:[address]Pcp:Dontrell Arvizu Subjective: * Chief Complaints: * 1 . MD. * Medical History: Objective: * Vitals: Assessment: Plan: * Treatment: * * Electronic signature of Beatriz Campos MD, [id number] on 01/26/2025 at 08:03 AM ESTSign off status: PendingVisit Status:?PEN (Pending) * Provider: Noel Campos M.D. Date: 03/25/2024 Generated for Printing/Faxing/eTransmitting on:?01/26/2025 08:03 AM EST
--- OUTSIDE RECORDS SUMMARY | 2025-01-24 09:30 | XMS_ITS ---
Author Organization [facility] in [place] Address [address] [place] [address] Care Team Providers Care Motorboat Mechanic Helper Name Role Phone Dontrell Arvizu Primary Care Provider Allergies Allergen (clinical drug ingredient) Drug/Non Drug Allergy documented on EMR Reaction Allergy Type Onset Date Status Plastic Tape (uncoded)dtsisXpwfiwc52/27/2023ActivefluticasoneFlonaseUnknownDrug AllergyActivePenicillinUnknownDrug AllergyActive REASON FOR VISIT F/U HEMATOLOGY, patient said dr stearns has concerns about the baby aspirin because of thin skin andbleeding easy Medications Medication SIG (Take, Route, Frequency, Duration) Notes Start Date End Date Status Carvedilol 12.5 MG 1 tablet with food Orally Twi ce a day; Duration: 90 days ActiveClotrimazole-Betamethasone 1-0.05 %APPLY SMALL AMOUNT TO AFFECTED AREA EXTERNALLY TWICE A DAY *USE SPARINGLY*; Duration: 30 daysActivelevoFLOXacin 750 MG1 tablet Orally Once a day; Duration: 10 day(s)5ActiveCalcium 600 MG1 tablet with meals Orally Twice a day4ActivehydrALAZINE HCl 100 MG1 tablet with food Orally Twice a day; Duration: 90 daysActiveAlbuterol Sulfate HFA 108 (90 Base) MCG/ACT2 puffs as needed for SOB Inhalation every 4 hrs; Duration: 30 daysActiveAzelastine HCl 137 MCG/SPRAYINSTILL 1 SPRAY IN EACH NOSTRIL TWICE DAILY FOR 30 DAYS; Duration: 90PRNActiveAspirin 81 81 MG1 tablet Orally QODActiveBumetanide 1 MG1 tablet Orally Once a day5ActiveVitamin DActiveLovastatin 20 MGTAKE 1 TABLET BY MOUTH EVERY DAY AT NIGHT; Duration: 90 ActiveMagnesium 400 MG1 capsule Orally once daily5ActivePantoprazole Sodium 40 MG1 tablet Orally twice daily; Duration: 30 daysActiveSodium Polystyrene Sulfonate -as directed OrallyActiveLisinopril 10 MG1 tablet Orally Once a dayActiveLiothyronine Sodium 25 MCGTAKE 1 AND 1/2 TABLETS BY MOUTH ONCE A DAY ON AN EMPTY STOMACH; Duration: 90ActiveLevothyroxine Sodium 88 MCGTAKE 1 TABLET BY MOUTH EVERY DAY IN THE MORNING ON EMPTY STOMACH FOR 90 DAYS; Duration: 90Active Social History Tobacco Use: Social History Observation Description Date Details (start date - stop date) Former Smoker NA - NA Tobacco Control (Standard) Question Answer Notes Tobacco use: Former smoker How long has it been since you last smoked?Greater than 10 yearsAdditional Findings: Tobacco oed-frwbYp-fnie heavy cigarette smoker (40+/day)AUDIT-C (Standard) Question Answer Notes Did you have a drink containing alcohol in the p ast year? No Cgdorx3LrskuzqizqrxdqTzxtldon Vital Signs Weight 282.4 lbs 01/24/2025 Height 65 in 01/24/2025 Blood pressure systolic 180 mm Hg 01/25/20 25 Blood pressure diastolic 100 mm Hg 025 BMI 46.99 kg/m2 01/24/2025 Encounters Encounter Location Date Provider Diagnosis [id number] [place] [address] 01/24/2025 Dontrell Arvizu CAD (coronary artery disease) I25.10 and Weight loss, abnormal R63.4 Assessments Encounter Date Diagnosis (ICD Code) Assessment Notes Treatment Notes Treatment Clinical Notes Section Notes 01/24/2025 CAD (coronary artery disease) (I CD-10 - I25.10) Recommend taking hte aspiorin QOD103/26/2024Weight loss, abnormal (ICD-10 - R63.4) Plan Of Treatment Medication Medication Name Sig Start Date Stop Date Notes levoFLOXacin 750 MG 1 tablet Orally Once a day; Durati on: 10 day(s) 01/24/2025 Aspirin 81 81 MG1 tablet Orally QODTreatment Notes Assessment Notes CAD (coronary artery disease) Recommend taking hte aspiorin QOD Progress Notes * Vero COLLINS MDOB:[birth year] (74 yo F)Acc No.[id number]:01/24/2025 Progress Note Patient: Vero FIELD :?Jeremiah Arvizu ([facility]), MDDOB:1950???Age: 74 Y???Sex:FemaleDate:01/24/2025Phone:[phone]:[address]Check In:02:38 PM ESTCheck Out:03:25 PM EST Subjective: * Chief Complaints: * F /U HEMATOLOGYPatient said dr stearns has concerns about the baby aspirin because of thin skin and bleeding easy * HPI: ???General:? Lef ear pain and sore throat left sided - been going on for aweek diuscssed weith? loss - abdn - gteinng ct scan discussed baby aspirin -. * ROS: ???EENT:?hearing changes?denies.?visual changes?denies. non-healing mouth sores?denies.?swollen glands or neck lumps?denies.?hoarseness?denies.?sore throat?denies.?difficulty swallowing?denies.?nose bleeds?denies.?nasal congestion?denies.?ear ache?denies.?ear discharge denies.?ringing in ears?denies.?light sensitivity?denies.?eye pain?denies.?blurring?denies.?eye irritation?denies.?double vision?denies. vision loss?denies.?General/Constitutional:?Sweats:?Denies.?Fatigue?denies.?Sleep proble ms?denies.?Anorexia?denies.?Malaise?denies.?Weight loss?denies. Fatigue or Weakness?denies.?Fever or Chills?denies.?Cardiovascular:?Shortness of Breath w/lying flat?denies.?Lightheadedne ss/dizziness?denies.?Chest tightness/ heavy pressure?denies.?Swelling of legs, a nkles, or feet?denies.?Waking up with shortness of breath?denies.?Chest pain&#16 0;denies.?Palpitations?denies.?Weight gain?denies.?Respiratory:?Chronic or frequent cough?denies.?Coughing up blood&#1 60;denies.?Difficulty breathing?denies.?Productive cough?denies.?Snoring&#1 60;denies.?Shortness of breath that awakens from sleep (PND)?denies.?Chest pain? denies.?Sputum production?denies.?Wheezing?denies.?Musculoskeletal:?Joint pain?denies.?Joint Fluid?denies.?Backpain?denies.?Knee pain?denies.?Neck pain?denies.?Joint Stiffness?denies.?Muscle cramps?denies.?Weakness of muscles?denies.?Arthritis?denies.?Muscle aches?denies.?Pain in shoulder(s)?denies.?Swollen joints?denies.? 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 Modified On:11/24/2022U Status:rvxsztoxkY57.9COPD (chronic obstructive pulmonary disease) Modified On:05/11/2023U Status:rxprqstmcB45.00Spinal stenosis Modified On:05/21/2022/U Status:wgfxfubmmI66.3Chronic kidney disease, stage 3 (moderate) Modified On:04/23/2023/U Status:itfguzrbyZ52.20Pulmonary hypertension Modified On:05/11/2023/U Status:byttqugciI50.9Chronic obstructive pulmonary disease, unspecified COPD type Modified On:11/24/2022/U Status:lrpmhvpcnD81.8Multiple pulmonary nodules Modified On:11/24/2022U Status:wehzuiukrR80.01Morbid obesity Modified On:11/24/2022/U Status:wuzibiuzqS87.1COVID-19 Modified On:10/13/2022 Status:cgtsrzdpzB89.118Atherosclerotic heart disease of [place] coronary artery with other forms of angina pectoris Modified On:11/09/2022 Status:oxyvsvwfiU01.90Cellulitis Modified On:11/12/2022 Status:oipkkkrucG44.92Diverticulitis Modified On:11/12/2022 Status:deudofqssA36.5Sick sinus syndrome Modified On:01/12/2023 Status:ojbsqpisgP32.19Other supraventricular tachycardia Modified On:01/12/2023 Status:kcbrklubwB72.29Other ventricular tachycardia Modified On:01/12/2023 Status:egdmuqbalW18.1Bradycardia, unspecified Modified On:01/27/2023 Status:vioauqdpcI13RP (high blood pressure) Modified On:02/18/2023 Status:fnwfbwaykT59.0Pacemaker Modified On:02/18/2023 Status:vuzaxydocT18.1Mild protein malnutrition Modified On:02/18/2023 Status:itypznhpmE29Sqxivndpi Modified On:02/22/2023 Status:zxypkwdrnZ11.30Chronic kidney disease (CKD), stage III (moderate) Modified On:05/11/2023 Status:dtqmbqnraQ19.817Lumbosacral spondylosis Modified On:08/01/2023 Status:catwnrblrA42.43Body mass index [BMI] 50.0-59.9, adult Modified On:11/23/2023 Status:bkydcoyikB52.5Hyperkalemia Modified On:01/10/2024 Status:ydgwbdvwcC40.062Spinal stenosis, lumbar region with neurogenic claudication Modified On:01/12/2024 Status:kjxtjzrjsF17.10Bladder prolapse, female, acquired Modified On:02/22/2024 Status:vawebycrwD98.671Right foot pain Modified On:03/10/2024 Status:svtczhkcfX14.90Serous otitis media Modified On:04/17/2024 Status:cpwkseiopC52.00Pure hypercholesterolemia, unspecified Modified On:05/31/2024 Status:kcmnlgteaJ84.9Hypothyroidism Modified On:06/20/2024 Status:nznpurrytX80.09Hyperproteinemia Modified On:06/23/2024 Status:cljtkyovhG64.9Tubular adenoma Modified On:07/27/2024 Status:zputxbcnsU86.909Migraine Modified On:08/03/2024 Status:wwqqxsunpF09.1Anemia due to stage 3 chronic kidney disease Modified On:08/28/2024 Status:vxnzvkjudE39.109Ocular migraine Modified On:08/30/2024 Status:rfpwfebjfB08.9CKD (chronic kidney disease) Modified On:08/30/2024 Status:ckfrovcqzN88.9TIA (transient ischemic attack) Modified On:08/30/2024 Status:tsncfowawU54.816Lumbar spondylosis Modified On:08/30/2024 Status:mipzzngohV56.10CAD (coronary artery disease) Modified On:08/30/2024 Status:lufovnwpfT69.822Non-pressure chronic ulcer of other part of left lower leg with fat layer exposed Modified On:09/25/2024 Status:vuahptmpnT83.332Chronic venous hypertension with ulcer and inflammation involving left side Modified On:09/25/2024 Status:cwrwlwryeL80.42Body mass index [BMI] 45.0-49.9, adult Modified On:09/26/2024 Status:mbifenoehK85.825Non-pressure chronic ulcer of other part of left lower leg with muscle involvement without evidenceof necrosis Modified On:10/25/2024 Status:tokompxnjC02.332Chronic venous hypertension with ulcer and inflammation, left Modified On:10/25/2024 Status:confirmed * Medical History: * Surgical History: h ysterectomy cataract-lens implants Right Foot Surgery Back Surgery 05/11/2021PM Implant- Biotronik 01/12/2023olonoscopy & EGD - [facility] 01/2023Lumbar/Sacral Injections- Dr. Mensah 05/31/2023olonoscopy 07/19/24Rt Myringotomy, t-tube placement, nasal endoscopy- Dr Viramontes 5colonoscopy 01/22/25 * Hospitalization/Major Diagno stic Procedure: N o Hospitalization History. * Family History: M other: Cancer, rectal, asthma, diagnosed with Cancer, Hypertension. D aughter(s): pancreatic cancer, diagnosed with Cancer. F ather: diagnosed with Heart Disease, Colon cancer. * Social History: ???Tobacco Use:?Tobacco Control (Standard)?Tobacco use:?Former smoker ?How long has it been since you last smoked? Greater than 10 years ?Additional Findings: Tobacco non-user?Ex-very heavy cigarette smoker (40+/day) ?Electronic Cigarette use?Current user?No ?LM: Additional Tobacco Questions?Number of Years Pt Smoked:?30 ?Number of Packs per Day:?2 ?When did you stop smokin. ???Drug/Alcohol:?AUDIT-C (Standard)?Did you have a drink containing alcohol in the past year??No ?Points?0 ?Interpretation?Negative * Medications: T akingAlbuterol Sulfate HFA 108 (90 Base) MCG/ACT Aerosol [...] - Powder as directed Orally Vitamin D Medication List reviewed and reconciled with the patientTaking Albuterol Sulfate HFA 108 (90 Base) MCG/ACT [...] with food Orally Twice a day Taking Clotrimazole- Betamethasone 1-0.05 % Cream APPLY SMALL AMOUNT TO [...] Powder as directed Orally Taking Vitamin D Medication List reviewed and reconciled with the patient * Allergies: P lastic Tape: hives - Side Effects - Criticality Low - Onset Date 3Penicillin: AllergyFlonase: Allergyno[Allergies Verified] Objective: * Vitals: W t:282.4lbs, Ht: 65 in, BP:180/100mm Hg, BMI:46.99Index, Ht-cm: 165.1 cm, Wt-k.1 kg. * Examination: ???Physical Exam: ?GENERAL:?well developed, well nourished, in no acute distress.?HEAD:?normocephalic/atraumatic.?EYES:?pupils equal, round and reactive to light, conjunctivae and sclerae normal.?EARS:?no deformity or lesion of external ear, canals and TM appear normal bilaterally, TM's intact, not inflamed with normal light reflex, hearing grossly normal to conversational speech.?NOSE:?no deformity, discharge, inflammation, or lesions. ?MOUTH:?mucous membranes moist, normal oropharynx and posterior pharynx without lesions or exudates, tongue normal, dentition normal.?NECK:?neck supple, no masses or palpable cervical nodes, trachea midline, thyroid without nodules, masses, tenderness, or enlargement.?CHEST:?no chest wall deformity, no chest wall tenderness. ?LUNGS:?normal respiratory effort and clear to auscultation, no wheezes, rales, or rhonchi, good air exchange.?CARDIO:?regular rate and rhythm, normal S1 and S2, nor murmur, rub, or gallop.?PULSES:?normal capillary refill.?ABDOMEN:?soft, non-distended, non-tender, no masses.?MUSCULOSKELETAL:?no deformity or scoliosis noted, normal range of motion, joints normal, no erythema, edema, effusion, or ecchymosis.?EXTREMITY:?no clubbing, cyanosis, edema, or deformity withnormal ROM in both upper and lower bilateral extremities.?NEUROLOGIC:?grossly normal.?SKIN:?no rashes, ulcerations, or suspicious lesions.?LYMPH NODES:?no cervical adenopathy, nodes normal.?MENTAL STATUS:?alert and oriented x3, normal mood and affect.? Assessment: * Assessment: 1.?CAD (coronary artery disease) - I25.10 (Primary)???2.?Weight loss, abnormal - R63.4??? Plan: * Treatment: Start levoFLOXacin Tablet, 750 MG, 1 tablet, Orally, Once a day, 10 day(s), 10;?Refill Tvfqkdc61 Tablet Delayed Release, 81 MG, 1 tablet, Orally, QOD.?? Notes: Recommend taking hte aspiorin QOD?? * Procedure Codes: * Preventive Medicine: ??Screenings/Counseling:?BMI ACTION PLAN?Above Normal BMI Follow-up?Dietary management education, guidance, and counseling ?FALL RISK SCREENING?Fall Risk Assessment:?No falls in the past year * * Sign off status: CompletedVisit Status:?CHK (Check Out) true * Provider: Alanna Arvizu ([facility])MD Date: 1 03/26/2024 Generated for Printing/Faxing/eTransmitting on:?01/26/2025 08:02 AM EST History and Physical Notes * HPI (History of Present Illness) CategorySub-CategoryDetailNotesCategory NotesGeneral Lef ear pain and sore throat left sided - been going on for aweek diuscssed weith loss - abdn - gteinng ct scan discussed baby aspirin - Examination CategorySub-CategoryDetailNotesCategory NotesPhysical ExamGENERAL:well developed, well nourished, in no acute distressHEAD:normocephalic/atraumatic EYES:pupils equal, round and reactive to light, conjunctivae and sclerae normal EARS:no deformity or lesion of external ear, canals and TM appear normal bilaterally, TM's intact, not inflamed with normal light reflex, hearing grossly normal to conversational speechNOSE:no deformity, discharge, inflammation, or lesionsMOUTH:mucous membranes moist, normal oropharynx and posterior pharynx without lesions or exudates, tonguenormal, dentition normalNECK:neck supple, no masses or palpable cervical nodes, trachea midline, thyroid without nodules, masses, tenderness, or enlargementCHEST:no chest wall deformity, no chest wall tendernessLUNGS:normal respiratory effort and clear to auscultation, no wheezes, rales, or rhonchi, good air exchangeCARDIO:regular rate and rhythm, normal S1 and S2, nor murmur, rub, or gallopPULSES:normal capillary refillABDOMEN:soft, non-distended, non-tender, no massesRECTAL:MUSCULOSKELETAL:no deformity or scoliosis noted, normal range of motion, joints normal, no erythema, edema, effusion, or ecchymosisEXTREMITY:no clubbing, cyanosis, edema, or deformity with normal ROM in both upper and lower bilateral extremitiesNEUROLOGIC:grossly normalSKIN:no rashes, ulcerations, or suspicious lesionsLYMPH NODES:no cervical adenopathy, nodes normalMENTAL STATUS:alert and oriented x3, normal mood and affect
--- OUTSIDE RECORDS SUMMARY | 2025-01-26 08:02 | XMS_ITS | Clinical Summary ---
Author Organization [facility] Address [address] [place] [address] Phone Care Team Providers Care Polytechnic Registrar Name Role Phone Unavailable Primary Care Provider Unavailabl e Social History Tobacco UseTypesPacks/DayYears UsedDateSmoking Tobacco: Never Assessed CommentsUnknownSex and Gender InformationValueDate RecordedSex Assigned at Not on fileLegal YdeOiumma81/26/2022 7:26 PM ESTGender IdentityNot on fileSexual OrientationNot on file Plan of Treatment Not on file
--- OUTSIDE RECORDS SUMMARY | 2025-01-26 08:02 | XMS_ITS | Clinical Summary ---
Author Organization [facility] Address [address] [place] [address] Care Team Providers Care Tool Repairer Name Role Phone Jeremiah Arvizu MD Primary Care Provider [phone] Allergies Active AllergyReactionsCriticalityNoted DateCommentsFluticasone Propionate Tpjtozk1210/24/20244500DknhkligzxcIunmlLwqxpt68/16/2022 Yeast infection Medications MedicationSigDispense QuantityRefillsLast FilledStart DateEnd [...] (coronary artery disease)05/09/2024hronic obstructive pulmonary disease 05/09/2024Former xsbngt9305/09/2024History of colon pwnfus8105/09/2024History of tobacco abuse05/09/20247757Wdnwnujrdcygwmnahfoc53/25/5242Ibzzzkmqzqiidy12/25/2025 Kidney uplsqj8005/09/2024Morbid cnobetc2805/09/2024Multiple pulmonary nodules 05/09/2024Status post lumbar spine /25/2025Stress incontinence, gvlosh7705/09/2024Stage 3a chronic kidney hpqpjvw0801/31/20246019Qbtcaqpizdou72/13/2024 CKD (chronic kidney disease) stage 4, GFR 15-29 ml/min01/26/2024Secondary votdpvdrkrsdkzuccwh38/13/2024Tachy-rhonda ldupbeok63/24/2023 Assessment & Plan (01/05/2023 6:58 AM EDT): [...] to medications/ or contrast, stroke, . Symptomatic dtnrlwjiagq80/20/2023 Assessment & Plan (01/01/2023 5:19 PM EDT): [...] voiced understanding and agreement Other secondary pulmonary imouompscakh04OSA on CPAP12/15/2022 Nonsustained paroxysmal ventricular zvvwxilybbb71/18/2023 Assessment & Plan (01/01/2023 5:22 PM EDT): Continue coreg 6.25 mg bid Obstructive sleep apnea Overview (10/02/2022): SOBIA=17.7 events/hour; Pranav SaO2=76%; Dskgvf=322.0 lbs; BMI=52.7 kg/m2, Home Sleep Apnea Testing on09/25/2022 at [facility] [place] (ventricular tachycardia)04/29/2022 Overview (04/29/2022): Added automatically from request for surgery [id number] Clinical trial exam04/23/2022 Overview (04/23/2022): Added automatically from request for surgery [id number] A-fib04/21/2022Spinal stenosis of lumbar region with neurogenic claudication 01/30/2022Lower abdominal pain01/30/2022pondylosis of lumbosacral region without myelopathy or ktytuvoxjueul99/18/2022Essential hbzdziflixwj04/12/2020 Chest pain07/27/20165226Vwshloy41/15/7703Zexwx72/15/1693Iwaobbf03/15/2017 Bdqqtqvhynxgwsm20/15/2017 Encounters DateTypeDepartmentCare WdtyLfqwurdscuq60/29/2025 12:10 PM EDTAncillary Procedure [facility] [address] [place] [phone] Adjustment and management of cardiac xpecwcttw59/29/2025Orders Only [facility] [address] [place] [phone] Irvin Posada MD 11/10/2024Orders Only [facility] [address] [place] [address] Irvin Posada MD 11/09/2024 12:40 PM EDTAncillary Procedure [facility] [address] [place] [phone] Adjustment and management of cardiac pacemakerfrom Last 3 Months Immunizations ImmunizationAdministration DatesNext DuePfizer SARS-CoV-2 Hmhvampsznv91/23/2021, 12/17/2020Unspecified Sars-Cov-2 Mcxlwkhhvnh24/23/2021,12/17/2020 Family History Medical HistoryRelationNameCommentsmalig neoplastic diseaseDaughter HyperlipidemiaFatherHypertensionFathermalig [...] medical care, and heating?Not hard at all 01/05/2023HQ-2AnswerDate RecordedPatient Health Questionnaire-2 Score0 07/20/2023UT Safety & EnvironmentAnswerDate RecordedWithin the last year, have you been afraid of your partner or ex-partner?No07/09/2023Within the last year, have you been humiliated [...] and Gender InformationValue Date RecordedSex Assigned at XmlpuSrnrti95/06/2025 4:22 PM EDTLegal SexFemale 09/10/2021 9:47 PM EDTGender GidbibkqTbmfai47/06/2025 4:22 PM EDTSexual OrientationHeterosexual or Ocwvkbdk03/06/2025 4:22 PM EDT Last Filed Vital Signs Vital SignReadingTime TakenCommentsBlood Btrxquwy525/90010/24/2024 10:57 AM EDT Iwiqb910010/24/2024 10:57 AM IDEGjrygfxuwez86 ??C (96.8 ??F)02/09/2023 2:25 PM EST Respiratory Fsjl8987 12:45 PM EDTOxygen Fkyolsbnzh90%10/24/2024 10:57 AM EDTInhaled Oxygen Concentration--Baxpft994 kg (282 lb)10/24/2024 10:57 AM EDT Icutsw474.6 cm (5' 4 )10/24/2024 10:57 AM EDTBody Mass Index48.41010/24/2024 10:57 AM EDT Plan of Treatment DateTypeDepartmentCare Team (Latest Contact Info)Exmbqytodyf24/19/2025 9:00 AM ESTOffice Visit [facility] [address] [place] [address] Tato Salcido MD [address] [place] [address] Health MaintenanceDue DateLast DoneCommentsCT Zeznifdftaba1950FIT-DNA 1950FIT1950FOBT1950Medicare Annual Wellness (AWV)1950 Pssnflvukdbpy1950Depression Qgqfqvgvt68/08/1963Pneumococcal Vaccine: 50+ Years (1 of 2 - PCV)1970Adult Lticgnf1902/19/19732949Dzxurhzvr05/08/1991Zoster Vaccines (1 of 2)2001Fall Risk Nojqpzsmt20/08/2016COVID-19 Vaccine ( season)51, 01/04/2021, 12/17/2020, Additional history existsInfluenza Vaccine (#1)1100Zzpvlnswwaa39/28/94835904/11/2022, 02/09/2023, 07/06/2018Colorectal Cancer Jaajejabx87/28/2033HIB VaccinesAged Out No longer eligible based on [...] ImplantedTypeAreaManufacturerDevice IdentifierShelf Expiration DateModel / Serial / LotEdwinaNito,S 60, - [id number] - [id number] Implanted:Qty: 1 on 01/12/2023 by [id number] / [id number] / LeadNitoS 53, - [id number] - [id number] Implanted:Qty: 1 on 01/12/2023 by Constantino [facility]ock [id number] / [id number] / Vincent Hoffmann Dr-T - [id number] - [id number] Implanted:Qty: 1 on 01/12/2023 by Constant[facility] Bullock [facility] Hospital[id number] / [id number] / Superion Ids - 10mm Implanted:Qty: 1 on 11/30/2022 by Jose Angel Mensah [facility]/A: Spine LumbarBoston [id number]/02/2027 101-9810 / / [id number] Ids - 12mm Implanted:Qty: 1 on 11/30/2022 by Jose Angel [facility]: Spine LumbarBoston [id number]/ [id number] / / [id number] Procedures Procedure NamePriorityDate/TimeAssociated DiagnosisCommentsCARDIAC DEVICE CHECK CHECK - TUJIYTIpmbxhe27/02/2025 1:40 PM EDT Adjustment and management of cardiac pacemaker CARDIAC DEVICE CHECK CHECK - YIWZJUPbtmdlq02/02/2025 12:46 PM EDT Adjustment and management of cardiac pacemaker CARDIAC DEVICE CHECK - REMOTE ALERT - WEOKEFAAODmbyufp07/29/2025 12:00 AM EDT CARDIAC DEVICE CHECK - REMOTE - RWMVKMWVXKjhudat64/29/2025 12:00 AM EDT DIAGNOSTIC BIVXDEGSIAVRokwxeh08/28/2023 2:19 PM EST Abdominal pain, unspecified abdominal [...] Collection TimeReceived Time Narrative Authorizing ProviderResult TypeResult StatusPaul [facility] IMPLANTABLE CARDIAC DEVICE PROCEDURESFinal ResultPerforming OrganizationAddressCity/State/ZIP Code Phone Number CPACS * Cardiac device check - Remote alert pacemaker (11/10/2024 12:00 AM EDT) Anatomical RegionLateralityModalityOtherSpecimen (Source)Anatomical Location / LateralityCollection Method / VolumeCollection TimeReceived Time11/10/2024 Narrative Authorizing ProviderResult TypeResult StatusNdsayra BahenaRio Grande Hospital IMPLANTABLE CARDIAC DEVICE PROCEDURESFinal Result * Cardiac device check - Remote pacemaker (11/10/2024 12:00 AM EDT)Anatomical RegionLateralityModalityOtherSpecimen (Source)Anatomical Location / Laterality Collection Method / VolumeCollection TimeReceived Time11/10/2024 Narrative Authorizing ProviderResult TypeResult StatusNdsayra MuñozAtrium Health [facility] IMPLANTABLE CARDIAC DEVICE PROCEDURESFinal Result * Diagnostic [...] Sedation: ??RADAMES Attending Physician: ??Dr. Dario Calderon Habilitation Assistant: ??Rachel Prado, Fellow Procedure Details Informed consent [...] Most Recently Relevant to Health Maintenance Insurance * Guarantor: Vero Sadler TypeRelation to PatientDate of BirthPhone Billing AddressPersonal/StfmrrThle1950 [id number] [address] Care Teams Team MemberRelationshipSpecialtyStart DateEnd Date Jeremiah Arvizu MD [address] [facility] [address] [place] [phone] PCP - Rdlhuti02/14/22
--- OUTSIDE RECORDS SUMMARY | 2025-01-26 08:03 | XMS_ITS | Patient Health Record ---
Author Organization [facility] in [place] Address [address] [place] [address] Care Team Providers Care Baseball Sewer Hand Name Role Phone Dontrell Arvizu Primary Care Provider Beatriz Campos Unavailable [phone] AntonioDonal Unavailable [phone] Allergies Allergen (clinical drug ingredient) Drug/Non Drug Allergy documented on EMR Reaction Allergy Type Onset Date Status Plastic Tape (uncoded)vkbdyKdactlt67/27/2023ctivefluticasoneFlonaseUnknownDrug AllergyActivePenicillinUnknownDrug AllergyActive Results Component Value Reference Range Notes XR sinus min 3V Reviewed date:05/09/2024 04:10:11 PM Interpretation: Performing Lab: Notes/Report: Source Facility: [place] [address] XRay Report Signed Patient: JUSTIN SADLER MR#: [id number] : 1950 Acct:[id number] Age/Sex: 74 / F ADM Date: 05/09/24 Loc: RAD Attending Dr: Lakshmi Mathews M.D. Ordering Physician: Lakshmi Mathews M.D. Date of Service: 05/09/24 Procedure(s): XR sinus min 3V Accession Number(s): [id number] cc: Debbie Arvizu M.D.; Lakshmi Mathews M.D. [place] [address] Patient Name: JUSTIN SADLER MRN: [id number] date: 1950 Sex: F Assigned Patient Location: [facility] Current Patient Location: RAD Accession/Order Number: [id number] Exam Date: 05/09/2024 12:47 Report Date: 05/09/2024 [...] Kelly Lao M.D.05/09/2024 12:54 PM Dictation Location: [place] [address] Electronically authenticated by: [id number] Y Date: 05/09/2024 12:54 Dictated By: Kelly Lao M.D. Signed By: 05/09/24 1257 DD/ 1254 TD/TT: Security Program Manager: ARCHANA Reviewed date:07/30/2024 09:56:53 PM Interpretation: Performing Lab: Notes/Report: [facility] , C Reactive Protein <0.50 <=0.50 mg/dL Performing Lab:see noteML - [facility] LBLDH Reviewed date:07/30/2024 09:56:53 PM Interpretation: Performing Lab: Notes/Report: [facility] ,Lactate Ggbytqlbqzius95527-695 U/LPerforming Lab:see noteML - [facility] LBPROF 14(COMP METB) Reviewed date:07/30/2024 09:56:53 PM Interpretation: Performing Lab: Notes/Report: [facility] ,Ewztvn137276-471 mmol/LPotassium5.13.5-5.1 mmol/ZHqquxker01613-608 mmol/LCarbon Qymdyhs37.921.0-32.0 mmol/LAnion Gap9.9Jttntsw4319-263 mg/dLBlood Urea Nitrogen 41.07.0-18.0 mg/dLCreatinine2.450.55-1.02 mg/dLEstimated GFR ( Tkmlalz51 >=60 mL/min/1.73m 2Estimated GFR (Non- Ame19>=60 mL/min/1.73m 2BUN Creatinine Ratio16.1Gxpvggm7.38.5-10.1 mg/dLBilirubin Total0.40.2-1.0 mg/dL Aspartate Amino Wdzplodtmeb889-92 U/LAlanine Cgnkwojffcdcywdj9797-20 U/LAlkaline Hksbpsbslni5879-194 U/LTotal Protein6.86.4-8.2 g/dLAlbumin Level3.13.4-5.0 g/dL Globulin3.7Albumin Globulin Ratio0.8Performing Lab:see noteML - [facility] LBAnaerobic Culture Reviewed date:08/17/2024 08:13:14 PM Interpretation: Performing Lab: Notes/Report: [facility] ,Anaerobic CultureSee Below For Report Anaerobic Culture Anaerobic CultureSpecimen has been received and testing has been initiated. Anaerobic Culture Anaerobic Culture Anaerobic Culture Anaerobic CultureNo anaerobes recovered. Anaerobic Culture Performing Lab:see note - [facility] LBAerobic Culture Reviewed date:08/17/2024 08:13:14 PM Interpretation: Performing Lab: Notes/Report: [facility] ,Aerobic CultureSee Below For Report Aerobic Culture Aerobic CultureSpecimen has been received and testing has been initiated. Aerobic Culture Aerobic Culture Aerobic Culture Aerobic CultureNo growth in 36 - 48 hours. Aerobic Culture Aerobic CulturePerformed at: [facility] Aerobic Culture Aerobic [address] [place], [place] [id number] Aerobic Culture Aerobic CultureLab Director: Jozef Medina PhD, Phone: [phone] Aerobic Culture Performing Lab:see note - [facility] LB SEE REPORT - Manager Corporate Id information not found for OBX-specific steel burner legend Aerobic Culture Reviewed date:09/07/2024 07:14:18 PM Interpretation: Performing Lab: Notes/Report: [facility] ,Aerobic CultureSee Below For Report Aerobic Culture Aerobic CultureMixed skin sonny Aerobic Culture Aerobic CulturePerformed at: [facility] Aerobic Culture Aerobic [address] [place], [place] [id number] Aerobic Culture Aerobic CultureLab Director: Jozef Medina PhD, Phone: [phone] Aerobic Culture Performing Lab:see note LC - [facility] LB SEE REPORT - Manager Corporate Id information not found for OBX-specific steel burner legend Aerobic Culture Reviewed date:09/10/2024 02:54:10 PM Interpretation: Performing Lab: Notes/Report: [facility] ,Aerobic CultureSee Below For Report Aerobic Culture Aerobic CultureMixed skin sonny Aerobic Culture Aerobic CulturePerformed at: - [facility] [place] Aerobic Culture Aerobic [address] [place], [place] [id number] Aerobic Culture Aerobic CultureLab Director: Jozef Medina PhD, Phone: [phone] Aerobic Culture Performing Lab:see note LC - [facility] LB SEE REPORT - Manager Corporate Id information not found for OBX-specific steel burner legend Anaerobic Culture Reviewed date:09/10/2024 02:54:10 PM Interpretation: Performing Lab: Notes/Report: [facility] ,Anaerobic CultureSee Below For Report Anaerobic Culture Anaerobic CultureNo anaerobic growth in 72 hours. Anaerobic Culture Performing Lab:see noteLC - [facility] LBCT int auditory canals w/o con Reviewed date:08/15/2024 04:17:45 PM Interpretation: Performing Lab: Notes/Report: Source Facility: [place] [address] CT Scan Report Signed Patient: JUSTIN SADLER MR#: [id number] : 1950 Acct:[id number] Age/Sex: 74 / F ADM Date: 08/15/24 Loc: CT Attending Dr: Lakshmi Mathews M.D. Ordering Physician: Lakshmi Mathews M.D. Date of Service: 08/15/24 Procedure(s): CT int auditory canals w/o con Accession Number(s): [id number] cc: Debbie Arvizu M.D. [place] [address] Patient Name: JUSTIN SADLER MRN: [id number] date: 1950 Sex: F Assigned Patient Location: CT Current Patient Location: CT Accession/Order Number: [id number] Exam Date: 08/15/2024 14:47 Report Date: 08/15/2024 [...] Gutierrez M.D. 08/15/2024 2:51 PM Dictation Location: [place] [address] Electronically authenticated by: [id number] Y Date: 08/15/2024 14:51 Dictated By: Victor Manuel Gutierrez M.D. Signed By: 08/15/24 1454 DD/ 1451 TD/TT: Security Program Manager:Aerobic Culture Reviewed date:08/13/2024 04:24:34 PM Interpretation: Performing Lab: Notes/Report: [facility] ,Aerobic CultureSee Below For Report Aerobic Culture Aerobic CultureSpecimen has been received and testing has been initiated. Aerobic Culture Aerobic Culture Aerobic Culture Aerobic CultureNo growth in 36 - 48 hours. Aerobic Culture Aerobic CulturePerformed at: CB - [facility] [place] Aerobic Culture Aerobic [address] [place], [place] [id number] Aerobic Culture Aerobic CultureLab Director: Jozef Medina PhD, Phone: [phone] Aerobic Culture Performing Lab:see note LC - [facility] LB SEE REPORT - Manager Corporate Id information not found for OBX-specific steel burner legend PROF 14(COMP METB) Reviewed date:07/30/2024 09:56:53 PM Interpretation: Performing Lab: Notes/Report: [facility] ,Gtenvh658038-529 mmol/LPotassium4.93.5-5.1 mmol/KYsoinvhi37472-123 mmol/LCarbon Mqokhmt15.921.0-32.0 mmol/LAnion Gap14.3Bzfgwom68027-357 mg/dLBlood Urea Unwxpucm45.07.0-18.0 mg/dLCreatinine2.700.55-1.02 mg/dLEstimated GFR ( Fjhuddv43>=60 mL/min/1.73m 2Estimated GFR (Non- Ame17>=60 mL/min/1.73m 2 BUN Creatinine Ratio20.4Dahwjyb1.08.5-10.1 mg/dLBilirubin Total0.50.2-1.0 mg/dL Aspartate Amino Qdvokrbfytw1657-68 U/LAlanine Lyfuvyclfjuajazc3543-04 U/L Alkaline Wloawsoyhrq1199-955 U/LTotal Protein6.36.4-8.2 g/dLAlbumin Level2.93.4- 5.0 g/dLGlobulin3.4Albumin Globulin Ratio0.9Performing Lab:see noteML - [facility] LBMAGNESIUM Reviewed date:07/30/2024 09:56:53 PM Interpretation: Performing Lab: Notes/Report: [facility] ,Magnesium1.91.8-2.4 mg/dLPerforming Lab:see noteML - [facility] LB CBC AUTO DIFF Reviewed date:07/30/2024 09:56:53 PM Interpretation: Performing Lab: Notes/Report: [facility] ,White Blood Count6.24.0-11.0 10 3/uLRed Blood Count3.814.20-5.40 10 6/uL Ckehvriind56.912.0-16.0 g/pJMcoroereye06.336.0-48.0 %Mean Corpuscular Brnzwm75.7 81.0-99.0 fLMean Corpuscular Jjixqukxck69.626.7-34.0 pgMean Corpuscular HGB Conc 30.929.9-35.2 g/dLRed Cell Distribution Width13.311.0-15.0 %Platelet Sczxh181 150-450 10 3/uLMean Platelet Volume9.79.5-13.5 fLNeutrophils Percent Auto60.8 43.0-75.0 %Lymphocytes Percent Auto23.520.5-60.0 %Monocytes Percent Auto13.31.7- 12.0 %Eosinophils Percent Auto1.50.9-7.0 %Basophils Percent Auto0.60.2-2.0 % Immature Granulocytes Pct Auto0.30.0-0.5 %Neutrophils Absolute Auto3.71.4-6.5 10 3/uLLymphocytes Absolute Auto1.51.2-3.8 10 3/uLMonocytes Absolute Auto0.80.3-0.8 10 3/uLEosinophils Absolute Auto0.10.0-0.7 10 3/uLBasophils Absolute Auto0.00.0- 0.1 10 3/uLImmature Granulocytes Abs Auto0.020.00-0.03 10 3/uLPerforming Lab:see noteML - [facility] LBECG 12 lead Reviewed date:07/30/2024 09:56:53 PM Interpretation: Performing Lab: Notes/Report: Source Facility: [facility]-[address] [place] [address] [address] [place] [address] Electrocardiograph Report Signed Patient: JUSTIN SADLER MR#: [id number] : 1950 Acct:[id number] Age/Sex: 74 / F ADM Date: 07/28/24 Loc: MS 232-[address]: Debbie Arvizu M.D. Ordering Physician: Etienne Arceo Date of Service: 07/28/24 Procedure(s): ECG 12 lead Accession Number(s): [id number] cc: [facility] Test Date: 2024-07-28 Pat Name: JUSTIN SADLER Department: Room: - Gender: Female Certified Court/Medical Interpreter: : 1950 Requested By: 1031 Order Number: [id number] Reading MD: LOVE RUBIO M.D. Measurements Intervals [place] Rate: 80 P: 92 HI: 180 QRS: 37 QRSD: 88 T: 27 QT: 402 QTc: 438 Interpretive Statements Electronic atrial pacemaker 9120 atypical ECG Compared to ECG 01/23/2024 17:12:55 No significant changes Electronically Signed On 07-29-2024 7:49:53 EDT by LOVE RUBIO M.D. Dictated By: LOVE RUBIO Signed By: 07/29/24 0750 DD/ 2307 TD/TT: Security Program Manager:Troponin I High Sensitivity Reviewed date:07/30/2024 09:56:53 PM Interpretation: Performing Lab: Notes/Report: [facility] ,Troponin I High Fcpeietsmyv04.04.0-51.3 pg/mL CUT-OFF POINTS HAVE BEEN ESTABLISHED BASED [...] CLINICAL INFORMATION. Performing Lab:see noteML - [facility] LBPROF CHEM 8 (BAS METB) Reviewed date:07/30/2024 09:56:53 PM Interpretation: Performing Lab: Notes/Report: [facility] ,Fljvga391613-603 mmol/LPotassium4.83.5-5.1 mmol/VPixqqbbs21995-857 mmol/LCarbon Xcyzmtl02.521.0-32.0 mmol/LAnion Gap9.0Qcfmzrv16712-324 mg/dLBlood Urea Nitrogen 53.07.0-18.0 mg/dLCreatinine2.930.55-1.02 mg/dLEstimated GFR ( Wwnacrx75 >=60 mL/min/1.73m 2Estimated GFR (Non- Ame16>=60 mL/min/1.73m 2BUN Creatinine Ratio18.6Ogulxgb3.48.5-10.1 mg/dLPerforming Lab:see noteML - [facility] LBCBC AUTO DIFF Reviewed date:07/30/2024 09:56:53 PM Interpretation: Performing Lab: Notes/Report: [facility] ,White Blood Count7.24.0-11.0 10 3/uLRed Blood Count3.894.20-5.40 10 6/uL Tjriudmoni73.412.0-16.0 g/pXWiecqclbpp17.636.0-48.0 %Mean Corpuscular Syzkgt29.1 81.0-99.0 fLMean Corpuscular Kagdufrwag67.326.7-34.0 pgMean Corpuscular HGB Conc 31.129.9-35.2 g/dLRed Cell Distribution Width13.411.0-15.0 %Platelet Ifbdf378 150-450 10 3/uLMean Platelet Volume9.69.5-13.5 fLNeutrophils Percent Auto66.4 43.0-75.0 %Lymphocytes Percent Auto18.820.5-60.0 %Monocytes Percent Auto12.41.7- 12.0 %Eosinophils Percent Auto1.70.9-7.0 %Basophils Percent Auto0.40.2-2.0 % Immature Granulocytes Pct Auto0.30.0-0.5 %Neutrophils Absolute Auto4.81.4-6.5 10 3/uLLymphocytes Absolute Auto1.41.2-3.8 10 3/uLMonocytes Absolute Auto0.90.3-0.8 10 3/uLEosinophils Absolute Auto0.10.0-0.7 10 3/uLBasophils Absolute Auto0.00.0- 0.1 10 3/uLImmature Granulocytes Abs Auto0.020.00-0.03 10 3/uLPerforming Lab:see noteML - [facility] LBReticulocyte Pct Auto Reviewed date:07/30/2024 09:56:53 PM Interpretation: Performing Lab: Notes/Report: [facility] ,Reticulocyte Pct Auto1.220.60-3.10 %Performing Lab:see noteML - [facility] LBIFE, PE and FLC, Serum Reviewed date:07/30/2024 09:56:53 PM Interpretation: Performing Lab: Notes/Report: [facility] ,Immunoglobulin G, Qn, Bfuvz4422396-8043 mg/dLImmunoglobulin A, Qn, Xgsdd31510- 422 mg/dLImmunoglobulin M, Qn, Nnuux8542-386 mg/dLProtein, Total6.26.0-8.5 g/dL Albumin3.22.9-4.4 g/rLAswwc-9-Lrvdwiss6.30.0-0.4 g/sCGmyxq-0-Vkwbdipx4.90.4-1.0 g/dLBeta Globulin1.00.7-1.3 g/dLGamma Globulin0.90.4-1.8 g/dLM-SpikeComment:Not Observed g/dLSPE shows an asymmetrical gamma.Globulin, Total3.02.2-3.9 g/dLA/G Ratio1.10.7-1.7Immunofixation Result, SerumComment:. Presence of monoclonal protein is unclear at this time. Suggest repeat in 3 to 6 months if clinically indicated. Please note:Comment. Protein electrophoresis scan will follow via computer, mail, or fire pilot delivery. Free Cope Lt Chains,S42.03.3-19.4 mg/LFree Lambda Lt Chains,S26.65.7-26.3 mg/L Cope/Lambda Ratio,S1.580.26-1.65 Performed at: [address], [place], [place] [id number] Director Project Management: Jozfe Medina PhD, Phone: [phone] Performing Lab:see noteLC - [facility] LBErythrocyte Sedimentation Rate Reviewed date:07/30/2024 09:56:53 PM Interpretation: Performing Lab: Notes/Report: [facility] ,Erythrocyte Sedimentation Rate96<=30 mm/hrPerforming Lab:see noteML - [facility] LBCBC AUTO DIFF Reviewed date:07/30/2024 09:56:53 PM Interpretation: Performing Lab: Notes/Report: [facility] ,White Blood Count6.54.0-11.0 10 3/uLRed Blood Count4.104.20-5.40 10 6/uL Wdfwibtduu23.912.0-16.0 g/bTVhqvhncsyl20.836.0-48.0 %Mean Corpuscular Oxgylb82.6 81.0-99.0 fLMean Corpuscular Otpqvvvpal24.026.7-34.0 pgMean Corpuscular HGB Conc 30.729.9-35.2 g/dLRed Cell Distribution Width13.211.0-15.0 %Platelet Qqgge579 150-450 10 3/uLMean Platelet Volume9.99.5-13.5 fLNeutrophils Percent Auto63.7 43.0-75.0 %Lymphocytes Percent Auto21.620.5-60.0 %Monocytes Percent Auto11.91.7- 12.0 %Eosinophils Percent Auto2.00.9-7.0 %Basophils Percent Auto0.50.2-2.0 % Immature Granulocytes Pct Auto0.30.0-0.5 %Neutrophils Absolute Auto4.11.4-6.5 10 3/uLLymphocytes Absolute Auto1.41.2-3.8 10 3/uLMonocytes Absolute Auto0.80.3-0.8 10 3/uLEosinophils Absolute Auto0.10.0-0.7 10 3/uLBasophils Absolute Auto0.00.0- 0.1 10 3/uLImmature Granulocytes Abs Auto0.020.00-0.03 10 3/uLPerforming Lab:see noteML - [facility] LBProthrombin Time INR Reviewed date:06/26/2024 08:31:41 PM Interpretation: Performing Lab: Notes/Report: [facility] ,Prothrombin Time11.49.0-11.6 secINR1.08 DESIRED INR: 2.0-3.0 CONDITIONS NOT LISTED BELOW 2.5-3.5 FOR PROSTHETIC HEART VALVE REPLACEMENT 2.5-3.5 RECURRENT THROMBOSIS Performing Lab:see noteML - [facility] LBPTT Reviewed date:06/26/2024 08:31:41 PM Interpretation: Performing Lab: Notes/Report: [facility] ,Partial Thromboplastin Time29.322.3-36.2 secPerforming Lab:see noteML - [facility] LBOccult Blood* Reviewed date:06/22/2024 08:14:52 PM Interpretation: Performing Lab: Notes/Report: [facility] ,Occult BloodPositivePerforming Lab:see noteML - [facility] LBIFE, PE and FLC, Serum Reviewed date:06/22/2024 08:14:52 PM Interpretation: Performing Lab: Notes/Report: [facility] ,Immunoglobulin G, Qn, Gulqo2882067-3698 mg/dLImmunoglobulin A, Qn, Pegxi07838- 422 mg/dLImmunoglobulin M, Qn, Chahq8476-587 mg/dLProtein, Total6.46.0-8.5 g/dL Albumin2.92.9-4.4 g/yFXnfen-8-Dmiyjktr1.30.0-0.4 g/kVWsbth-0-Telrzbsl0.00.4-1.0 g/dLBeta Globulin1.10.7-1.3 g/dLGamma Globulin1.00.4-1.8 g/dLM-SpikeComment:Not Observed g/dLSPE shows an asymmetrical gamma.Globulin, Total3.52.2-3.9 g/dLA/G Ratio0.90.7-1.7Immunofixation Result, SerumComment:. Presence of monoclonal protein is unclear at this time. Suggest repeat in 3 to 6 months if clinically indicated. Please note:Comment. Protein electrophoresis scan will follow via computer, mail, or fire pilot delivery. Free Cope Lt Chains,S51.53.3-19.4 mg/LFree Lambda Lt Chains,S30.75.7-26.3 mg/L Cope/Lambda Ratio,S1.680.26-1.65 Performed at: [address] [id number] Director Project Management: Jozef Medina PhD, Phone: [phone] Performing Lab:see [facility] LBImmunofixation, Urine Reviewed date:06/22/2024 08:14:52 PM Interpretation: Performing Lab: Notes/Report: [facility] ,Immunofixation, UrineComment. No monoclonality detected. Performed at: [address] [id number] Director Project Management: Jozef Medina PhD, Phone: [phone] Performing Lab:see [facility] LBVITAMIN D 25 [place] Reviewed date:06/20/2024 03:31:27 PM Interpretation: Performing Lab: Notes/Report: [facility] ,Vitamin D37.9 <20 ng/mL Vit D deficient 20-<30 ng/mL Vit D insufficient 30-100 ng/mL Vit D sufficient >100 ng/mL Potential Toxicity Performing Lab:see note - [facility] LBURINE T PROTEIN CREAT RATIO Reviewed date:06/20/2024 03:31:27 PM Interpretation: Performing Lab: Notes/Report: [facility] ,Total Protein Urine Vvkpkg70.4<=11.9 mg/dLCreatinine Urine Tiikvn516.9720.00- 300.00 mg/dLProtein Creatinine Ratio Urine0.24Performing Lab:see note - [facility] LBURIC ACID SERUM Reviewed date:06/20/2024 03:31:27 PM Interpretation: Performing Lab: Notes/Report: [facility] ,Uric Acid8.02.6-6.0 mg/dLPerforming Lab:see note - [facility] LBUA RANDOM W or MICROSCOPIC Reviewed date:06/20/2024 03:31:27 PM Interpretation: Performing Lab: Notes/Report: [facility] ,Color UrineYELLOWYELLOWClarity UrineCLEARCLEARSpecific [place] Urine1.020 1.005-1.025pH Urine6.05.0-9.0Protein UrineNEGATIVENEG/TRACE mg/dLGlucose Urine UANEGATIVENEGATIVE mg/dLBilirubin UrineNEGATIVENEGATIVEKetones UrineNEGATIVE NEGATIVE mg/dLBlood UrineNEGATIVENEGATIVENitrite UrineNEGATIVENEGATIVE Urobilinogen Urine0.20.2-1.0 EU/dLLeukocyte Esterase UrineTRACENEGATIVEWBC Urine 2-5NONE SEEN #/HPFRBC Urine0-20-2 #/HPFBacteria UrineSMALLNONE SEEN #/HPFMucus UrineTRACENONE SEENSquamous Epithelial Cell UrineMODERATENONE/RARE #/LPFCrystals Seen?None SeenNone Seen #/HPFCast Seen?NONE SEENNONE SEEN #/LPFUrine Culture IndicatedNOPerforming Lab:see noteML - [facility] LBTSH Reviewed date:06/20/2024 03:31:27 PM Interpretation: Performing Lab: Notes/Report: [facility] ,Thyroid Stimulating Hormone0.0080.358-3.740 uIU/mLPerforming Lab:see noteML - [facility] LBT4 Reviewed date:06/20/2024 03:31:27 PM Interpretation: Performing Lab: Notes/Report: [facility] ,T4 Thyroxine8.104.80-13.90 ug/dLPerforming Lab:see noteML - [facility] LBPROF 14(COMP METB) Reviewed date:06/20/2024 03:31:27 PM Interpretation: Performing Lab: Notes/Report: [facility] ,Kweaed774918-630 mmol/LPotassium4.83.5-5.1 mmol/XVamfdlhj94438-700 mmol/LCarbon Kynzjwy62.221.0-32.0 mmol/LAnion Gap12.2Otxumpb2365-626 mg/dLBlood Urea Nitrogen 38.07.0-18.0 mg/dLCreatinine2.100.55-1.02 mg/dLEstimated GFR ( Clgwbty58 >=60 mL/min/1.73m 2Estimated GFR (Non- Ame23>=60 mL/min/1.73m 2BUN Creatinine Ratio18.5Opaoowa1.08.5-10.1 mg/dLBilirubin Total0.50.2-1.0 mg/dL Aspartate Amino Vwpdqnpdpwq7652-07 U/LAlanine Swoaldxmtshnilvh0786-95 U/L Alkaline Lulrflmrttv0790-058 U/LTotal Protein6.96.4-8.2 g/dLAlbumin Level3.03.4- 5.0 g/dLGlobulin3.9Albumin Globulin Ratio0.8Performing Lab:see noteML - [facility] LBPHOSPHORUS Reviewed date:06/20/2024 03:31:27 PM Interpretation: Performing Lab: Notes/Report: [facility] ,Phosphorus3.72.6-4.7 mg/dLPerforming Lab:see noteML - [facility] LB MAGNESIUM Reviewed date:06/20/2024 03:31:27 PM Interpretation: Performing Lab: Notes/Report: [facility] ,Magnesium1.61.8-2.4 mg/dLPerforming Lab:see note - [facility] LB LIPID PROFILE Reviewed date:06/20/2024 03:31:27 PM Interpretation: Performing Lab: Notes/Report: [facility] ,Tdybfpqmkysxa54<=150 mg/xKVgdmxafifso922<=200 mg/dLHDL Kisfipmzaji2458-86 mg/dL > or =60 mg/dl - LOW CARDIOVASCULAR RISK <40 mg/dl - HIGH CARDIOVASCULAR RISK LDL Cholesterol Gvhsobfcyt83.0 <100 mg/dl OPTIMAL 100-129 mg/dl NEAR OR ABOVE OPTIMAL 130-159 mg/dl BORDERLINE HIGH 160-189 mg/dl HIGH >190 mg/dl VERY HIGH VLDL FPOXMABUBVF40.0Chol HDL Ratio2.8 3.3 - 4.4 LOW RISK 4.4 - 7.1 AVERAGE RISK 7.1 - 11.0 MODERATE RISK >11.0 HIGH RISK Performing Lab:see note - [facility] LBIRON AND TIBC Reviewed date:06/20/2024 03:31:27 PM Interpretation: Performing Lab: Notes/Report: [facility] ,Iron51.050.0-170.0 ug/dLTotal Iron Binding Clrcvdqx637.0250.0-450.0 ug/dL Percent Iron Btblmuqygd40.2Performing Lab:see note - [facility] LB GLYCOHEMOGLOBIN A1C Reviewed date:06/20/2024 03:31:27 PM Interpretation: Performing Lab: Notes/Report: [facility] ,Glycohemoglobin A1C5.24.5-6.2 % ADA RECOMMENDED LIMIT 4.0 - 6.0 ADA THERAPEUTIC TARGET < 7.0 ACTION SUGGESTED > 7.0 Estimated Average Clhuisw171Rsndxqkbwr Lab:see noteML - [facility] LB FREE T3 Reviewed date:06/20/2024 03:31:27 PM Interpretation: Performing Lab: Notes/Report: [facility] ,Free T32.572.18-3.98 pg/mLPerforming Lab:see noteML - [facility] LB FERRITIN Reviewed date:06/20/2024 03:31:27 PM Interpretation: Performing Lab: Notes/Report: [facility] ,Gvplefdv679.08.0-252.0 ng/mLPerforming Lab:see noteML - [facility] LBCBC AUTO DIFF Reviewed date:06/20/2024 03:31:27 PM Interpretation: Performing Lab: Notes/Report: [facility] ,White Blood Count7.54.0-11.0 10 3/uLRed Blood Count3.864.20-5.40 10 6/uL Uclyefpkus34.112.0-16.0 g/mODkkvuscwgn43.136.0-48.0 %Mean Corpuscular Cenzsr86.5 81.0-99.0 fLMean Corpuscular Aeinofocjp48.826.7-34.0 pgMean Corpuscular HGB Conc 30.729.9-35.2 g/dLRed Cell Distribution Width13.911.0-15.0 %Platelet Cufyx263 150-450 10 3/uLMean Platelet Volume9.59.5-13.5 fLNeutrophils Percent Auto73.7 43.0-75.0 %Lymphocytes Percent Auto15.420.5-60.0 %Monocytes Percent Auto9.21.7- 12.0 %Eosinophils Percent Auto0.90.9-7.0 %Basophils Percent Auto0.40.2-2.0 % Immature Granulocytes Pct Auto0.40.0-0.5 %Neutrophils Absolute Auto5.51.4-6.5 10 3/uLLymphocytes Absolute Auto1.21.2-3.8 10 3/uLMonocytes Absolute Auto0.70.3-0.8 10 3/uLEosinophils Absolute Auto0.10.0-0.7 10 3/uLBasophils Absolute Auto0.00.0- 0.1 10 3/uLImmature Granulocytes Abs Auto0.030.00-0.03 10 3/uLPerforming Lab:see note - [facility] LBPTH, Intact Reviewed date:02/01/2024 11:07:43 AM Interpretation: Performing Lab: Notes/Report: [facility] ,PTH, [id number] pg/mL Performed at: [facility] [address] [id number] Director Project Management: Jozef Medina PhD, Phone: [phone] Performing Lab[facility] LBCBC no Diff (Hemogram) Reviewed date:01/31/2024 01:01:36 PM Interpretation: Performing Lab: Notes/Report: [facility] ,White Blood Count7.24.0-11.0 10 3/uLRed Blood Count4.004.20-5.40 10 6/uL Rgvudcwgqo98.712.0-16.0 g/zIKgwgbhcbfg02.736.0-48.0 %Mean Corpuscular Ihyvlx53.3 81.0-99.0 fLMean Corpuscular Pyzbyorfor32.326.7-34.0 pgMean Corpuscular HGB Conc 31.029.9-35.2 g/dLRed Cell Distribution Width13.811.0-15.0 %Platelet Uraxi114 150-450 10 3/uLMean Platelet Volume9.59.5-13.5 fLPerforming Lab:see note - [facility] LBVITAMIN D 25 [place] Reviewed date:01/31/2024 01:44:22 PM Interpretation: Performing Lab: Notes/Report: [facility] ,Vitamin D37.4 <20 ng/mL Vit D deficient 20-<30 ng/mL Vit D insufficient 30-100 ng/mL Vit D sufficient >100 ng/mL Potential Toxicity Performing Lab:[facility] LBURINE T PROTEIN CREAT RATIO Reviewed date:02/01/2024 08:16:19 PM Interpretation: Performing Lab: Notes/Report: [facility] ,Total Protein Urine Sexice37.9<=11.9 mg/dLCreatinine Urine Gvrzki609.2320.00- 300.00 mg/dLProtein Creatinine Ratio Urine0.22Performing Lab:see noteML - [facility] LBURIC ACID SERUM Reviewed date:01/31/2024 01:01:36 PM Interpretation: Performing Lab: Notes/Report: [facility] ,Uric Acid7.62.6-6.0 mg/dLPerforming Lab:see noteML - [facility] LBUA RANDOM W or MICROSCOPIC Reviewed date:02/01/2024 08:16:19 PM Interpretation: Performing Lab: Notes/Report: [facility] ,Color UrineLT. YELLOWYELLOWClarity UrineCLEARCLEARSpecific [place] Urine1.020 1.005-1.025pH Urine6.05.0-9.0Protein UrineNEGATIVENEG/TRACE mg/dLGlucose Urine UANEGATIVENEGATIVE mg/dLBilirubin UrineNEGATIVENEGATIVEKetones UrineNEGATIVE NEGATIVE mg/dLBlood UrineNEGATIVENEGATIVENitrite UrinePOSITIVENEGATIVE Urobilinogen Urine0.20.2-1.0 EU/dLLeukocyte Esterase UrineTRACENEGATIVEWBC Urine 2-5NONE SEEN #/HPFRBC UrineNONE SEEN0-2 #/HPFBacteria UrineLARGENONE SEEN #/HPF Mucus UrineNONE SEENNONE SEENSquamous Epithelial Cell UrineFEWNONE/RARE #/LPF Performing Lab:see noteML - [facility] LBRENAL FUNCTION PANEL Reviewed date:01/31/2024 01:01:36 PM Interpretation: Performing Lab: Notes/Report: [facility] ,Ecznmh990743-674 mmol/LPotassium4.93.5-5.1 mmol/BKrlzwhgg87342-314 mmol/LCarbon Sezvqcw15.321.0-32.0 mmol/LAnion Gap15.3Yigmhbb9423-332 mg/dLBlood Urea Nitrogen 32.07.0-18.0 mg/dLCreatinine1.910.55-1.02 mg/dLEstimated GFR ( Wpsqwev68 >=60 mL/min/1.73m 2Estimated GFR (Non- Ame26>=60 mL/min/1.73m 2BUN Creatinine Ratio16.2Vgjipkw3.88.5-10.1 mg/dLPhosphorus3.12.6-4.7 mg/dLAlbumin Level3.03.4-5.0 g/dLPerforming Lab:see noteML - [facility] LB MAGNESIUM Reviewed date:01/31/2024 01:01:36 PM Interpretation: Performing Lab: Notes/Report: [facility] ,Magnesium1.71.8-2.4 mg/dLPerforming Lab:see noteML - [facility] LBCT lower leg LT wo con Reviewed date:08/15/2024 04:17:45 PM Interpretation: Performing Lab: Notes/Report: Source Facility: [place] [address] CT Scan Report Signed Patient: JUSTNI SADLER MR#: [id number] : 1950 Acct:[id number] Age/Sex: 74 / F ADM Date: 08/15/24 Loc: CT Attending Dr: Debbie Arvizu M.D. Ordering Physician: Debbie Arvizu M.D. Date of Service: 08/15/24 Procedure(s): CT lower leg LT wo con Accession Number(s): [id number] cc: Debbie Arvizu M.D. [place] [address] Patient Name: JUSTIN SADLER MRN: [id number] date: 1950 Sex: F Assigned Patient Location: CT Current Patient Location: CT Accession/Order Number: [id number] Exam Date: 08/15/2024 15:40 Report Date: 08/15/2024 [...] Ashford M.D. 08/15/2024 3:45 PM Dictation Location: [place] [address] Electronically authenticated by: [id number] Y Date: 08/15/2024 15:45 Dictated By: Sacha Ashford D.O. Signed By: 08/15/24 1547 DD/ 1545 TD/TT: Security Program Manager:XR FOOT RT 2V Reviewed date:03/11/2024 08:36:26 PM Interpretation: Performing Lab: Notes/Report: Source Facility: [place] [address] XRay Report Signed Patient: JUSTIN SADLER MR#: [id number] : 1950 Acct:[id number] Age/Sex: 74 / F ADM Date: 03/10/24 Loc: RAD Attending Dr: Debbie Arvizu M.D. Ordering Physician: Debbie Arvizu M.D. Date of Service: 03/10/24 Procedure(s): XR foot RT 2V Accession Number(s): [id number] cc: Debbie Arvizu M.D. [place] [address] Patient Name: JUSTIN SADLER MRN: [id number] date: 1950 Sex: F Assigned Patient Location: RAD Current Patient Location: RAD Accession/Order Number: [id number] Exam Date: 03/10/2024 14:45 Report Date: 03/10/2024 [...] Signed By: 03/10/24 1522 DD/ 1520 TD/TT: Security Program Manager:PTH, Intact Reviewed date:06/21/2024 12:49:25 PM Interpretation: Performing Lab: Notes/Report: [facility] ,PTH, Wvoheq3579-72 pg/mL Performed at: - [facility] [address] [id number] Director Project Management: Jozef Medina PhD, Phone: [phone] Performing Lab:see note - [facility] LB Reason For Referral Diagnosis 1 Spinal stenosis, lum bar region with neurogenic claudication (M48.062) Referral Organization [facility] Referring Provider First Name Dontrell Referring Provider Last Name Nolberto Referring Provider [facility] icine Referred Provider Pain Management, [facility] Referred Provider Specialty Pain Medicin e Referral Priority Routine Diagnosis 1 Bladder prolapse, fe male, acquired (N81.10) Referral Organization [facility] Referring Provider First Name Dontrell Referring Provider Last Name Nolberto Referring Provider [facility] icicheryl Referred Provider Ladnona Malagon Referred Provider Specialty Urology Referral Priority Routine Diagnosis 1 Encounter for examin ation of ears and hearing without abnormal findings (Z01.10) Referral Organization [facility] Referring Provider First Name Dontrell Referring Provider Last Name Nolberto Referring Provider [facility] Referred Provider Lakshmi Mathews Referred Provider Specialty Otolaryngolo gy Referral Priority Routine Reason Patient would like Genia muhammad office please! Diagnosis 1 Hyperproteinemia (E8 8.09) Referral Organization [facility] Referring Provider First Name Dontrell Referring Provider Last Name Nolberto Referring Provider [facility] Referred Organization [facility] Referred Provider Beatriz Campos Referred Address [address],[place], [place],[address], Referred Provider Specialty Hematology/O ncology Referral Priority Routine Diagnosis 1 Rectal bleeding (K62 .5) Referral Organization [facility] Referring Provider First Name Dontrell Referring Provider Last Name Nachonicki Referring Provider [facility] Referred Provider Rigoberto Tam Referred Provider Specialty Gastroentero logy Referral Priority Routine Diagnosis 1 Open wound of leg, l eft, subsequent encounter (S88.626Q) Referral Organization [facility] Referring Provider First Name Dontrell Referring Provider Last Name Nacho Referring Provider [facility] Referred Provider Isael Mart Referred Provider Specialty Wound Care Referral Priority Routine Medications Medication SIG (Take, Route, Frequency, Duration) Notes Start Date End Date Status Albuterol Sulfate HFA 108 (9 0 Base) MCG/ACT 2 puffs as needed for SOB Inhalation josue ry 4 hrs; Duration: 30 days ActiveLovastatin 20 MGTAKE 1 TABLET BY MOUTH EVERY DAY AT NIGHT; Duration: 90 ActiveCarvedilol 12.5 MG1 tablet with food Orally Twice a day; Duration: 90 days ActiveClotrimazole-Betamethasone 1-0.05 %APPLY SMALL AMOUNT TO AFFECTED AREA EXTERNALLY TWICE A DAY *USE SPARINGLY*; Duration: 30 daysActiveBumetanide 1 MG1 tablet Orally Once a day5ActiveSodium Polystyrene Sulfonate -as directed OrallyActivelevoFLOXacin 750 MG1 tablet Orally Once a day; Duration: 10 day(s)5ActiveCalcium 600 MG1 tablet with meals Orally Twice a day 4ActiveVitamin DActiveLiothyronine Sodium 25 MCGTAKE 1 AND 1/2 TABLETS BY MOUTH ONCE A DAY ON AN EMPTY STOMACH; Duration: 90ActiveLisinopril 10 MG1 tablet Orally Once a dayActivehydrALAZINE HCl 100 MG1 tablet with food Orally Twice a day; Duration: 90 daysActiveLevothyroxine Sodium 88 MCGTAKE 1 TABLET BY MOUTH EVERY DAY IN THE MORNING ON EMPTY STOMACH FOR 90 DAYS; Duration: 90Active Magnesium 400 MG1 capsule Orally once daily5ActiveAzelastine HCl 137 MCG/SPRAYINSTILL 1 SPRAY IN EACH NOSTRIL TWICE DAILY FOR 30 DAYS; Duration: 90 PRNActivePantoprazole Sodium 40 MG1 tablet Orally twice daily; Duration: 30 days ActiveAspirin 81 81 MG1 tablet Orally QODActive Immunizations Vaccine Route Administration Date Status Comme nts SARS-COV-2 (COVID 19 Pfizer 30mcg/0.3mL) Unknown 12/17/2020 Administered SARS-COV-2 (COVID 19 Pfizer 30mcg/0.3mL)Qxtqtpd77/26/2021Administered Social History Tobacco Use: Social History Observation Description Date Details (start date - stop date) Former Smoker NA - NA Tobacco Control (Standard) Question Answer Notes Tobacco use: Former smoker How long has it been since you last smoked?Greater than 10 yearsAdditional Findings: Tobacco szi-phmePd-mjck heavy cigarette smoker (40+/day)AUDIT-C (Standard) Question Answer Notes Did you have a drink containing alcohol in the p ast year? No Objyus4UzuekkjqfabiheIwhvfcgs Problems Problem Type SNOMED Code ICD Code Onset Dates Problem Status W/U Status Risk Notes Problem Hyperkalemia (16352565) Hyperkalemia (E87 .5) ActiveconfirmedProblemAngina co-occurrent and due to coronary arteriosclerosis (disorder) (19540844735809775)Atherosclerotic heart disease of [place] coronary artery with other forms of angina pectoris (I25.118)ActiveconfirmedProblemSick sinus syndrome (74975858)Sick sinus syndrome (I49.5)ActiveconfirmedProblemNon- pressure chronic ulcer of other part of left lower leg with fat layer exposed (L97.822)ActiveconfirmedProblemChronic kidney disease stage 3 (disorder) (572833612)Chronic kidney disease, stage 3 (moderate) (N18.3)Activeconfirmed ProblemBradycardia (62921825)Bradycardia, unspecified (R00.1)Activeconfirmed ProblemMorbid obesity (241304479)Morbid obesity (E66.01)ActiveconfirmedProblem COPD - Chronic obstructive pulmonary disease (29549063)COPD (chronic obstructive pulmonary disease) (J44.9)ActiveconfirmedProblemHypothyroidism (37658192) Hypothyroidism (E03.9)ActiveconfirmedProblemCoronary artery disease (42873393) CAD (coronary artery disease) (I25.10)ActiveconfirmedProblemSpinal stenosis (27645175)Spinal stenosis (M48.00)ActiveconfirmedProblemChronic kidney disease (249356708)CKD (chronic kidney disease) (N18.9)ActiveconfirmedProblemCardiac pacemaker in situ (829894522)Pacemaker (Z95.0)ActiveconfirmedProblemDizziness (275676490)Dizziness (R42)ActiveconfirmedProblemTransient ischemic attack (564689201)TIA (transient ischemic attack) (G45.9)ActiveconfirmedProblemMigraine (58809710)Migraine (G43.909)ActiveconfirmedProblemCOPD - Chronic obstructive pulmonary disease (96503149)Chronic obstructive pulmonary disease, unspecified COPD type (J44.9)ActiveconfirmedProblemPain in right foot (454487132496312)Right foot pain (M79.671)ActiveconfirmedProblemSerous otitis media (33805843)Serous otitis media (H65.90)ActiveconfirmedProblemCellulitis (999242386)Cellulitis (L03.90)ActiveconfirmedProblemDiverticulitis (95603380)Diverticulitis (K57.92) ActiveconfirmedProblemHyperproteinemia (93391509)Hyperproteinemia (E88.09)Active confirmedProblemTubular adenoma (307493754)Tubular adenoma (D36.9)Active confirmedProblemLumbar spondylosis (462435631)Lumbar spondylosis (M47.816)Active confirmedProblemOcular migraine (00550452)Ocular migraine (G43.109)Active confirmedProblemMultiple pulmonary nodules (938398020)Multiple pulmonary nodules (R91.8)ActiveconfirmedProblemMidline cystocele (070025593)Bladder prolapse, female, acquired (N81.10)ActiveconfirmedProblemLumbosacral spondylosis (430368111)Lumbosacral spondylosis (M47.817)ActiveconfirmedProblemAnemia of chronic renal failure (82624488)Anemia due to stage 3 chronic kidney disease (D63.1)ActiveconfirmedProblemChronic venous hypertension with ulcer and inflammation involving left side (I87.332)ActiveconfirmedProblemEssential hypertension (07283710)BP (high blood pressure) (I10)ActiveconfirmedProblemPure hypercholesterolemia (801872491)Pure hypercholesterolemia, unspecified (E78.00) ActiveconfirmedProblemChronic venous hypertension with ulcer and inflammation, left (I87.332)ActiveconfirmedProblemSecondary pulmonary hypertension (00914814) Other secondary pulmonary hypertension (I27.29)ActiveconfirmedProblemPulmonary hypertension (90356136)Pulmonary hypertension (I27.20)ActiveconfirmedProblem Neurogenic claudication (693403738)Spinal stenosis, lumbar region with neurogenic claudication (M48.062)ActiveconfirmedProblemNon-pressure chronic ulcer of other part of left lower leg with muscle involvement without evidenceof necrosis (L97.825)ActiveconfirmedProblemMalnutrition of mild degree (Otero: 75% to less than 90% of standard weight) (81150954)Mild protein malnutrition (E44.1) ActiveconfirmedProblemCOVID-19 (095781866)COVID-19 (U07.1)ActiveconfirmedProblem Body mass index 40+ - severely obese (665308140)Body mass index [BMI] 45.0-49.9, adult (Z68.42)ActiveconfirmedProblemBody mass index 40+ - morbidly obese (577687610)Body mass index [BMI] 50.0-59.9, adult (Z68.43)ActiveconfirmedProblem Chronic kidney disease stage 3 (disorder) (189425611)Chronic kidney disease (CKD), stage III (moderate) (N18.30)ActiveconfirmedProblemVentricular tachycardia (disorder) (57683639)Other ventricular tachycardia (I47.29)Active confirmedProblemSupraventricular tachycardia (disorder) (5669828)Other supraventricular tachycardia (I47.19)Activeconfirmed Vital Signs Heart Rate 77 /min 09/26/2024 Tanamsxsnql99.0 degrees Gsdanrukzb28/15/2025Respiratory Rate80 /min09/26/2024 Pgvxxwjb34 %09/26/2024lood pressure efwyvcvhj434 mm Hg01/24/20252600Akzhpn67 in 01/24/2025lood pressure mm Hg01/24/20253145Lgoeop180.4 lbs103/26/2024MI 46.99 kg/m201/24/2025 Encounters Encounter Location Date Provider Diagnosis [address] [address] 08/08/2024 Dontrell Hoy Cellulitis L03.[address] [address] 08/09/2024 Dontrell Hoy Cellulitis L03.[address] [address] 09/04/2024 Dontrell Hoy Cellulitis L03.[address] [address] 08/03/2024 Dontrell Hoy Migraine G43.[address] [address] 03/10/2024 Dontrell Hoy Right foot pain M79.[address] [address] 04/17/2024 Dontrell Hoy Serous otitis media H65.[address] [address] 01/24/2025 Dontrell Hoy CAD (coronary artery disease) I25.10 and Weight loss, abnormal R63.4 [facility] [place] [address] [place] [address] 09/26/2024 Donal Salmeron Multiple pulmonary nodules R91.8 ; COPD (chronic obstructive pulmonary disease) J44.9 ; History of tobacco abuse Z87.891 ; Morbid obesity E66.01 and Body mass index [BMI] 45.0-49.9, adult Z68.42 [facility] [address] [place] [place] [address] 07/25/2024 [facility] [address] [place] [address]/10/2025 [facility] [address] [place] [place] [address]/poAt[facility] Stanly[address] [place] [address]/oug HoySpinal stenosis M48.00 and Pulmonary hypertension I27.20[facility] [place] [address]/Doug HoyAcute bronchitis, unspecified organism J20.9[place] [address] [place] [address]/oug HoySpinal stenosis, lumbar region with neurogenic claudication M48.062BJulia [place] [address] [place] [address]/oug [facility] [place] [address]/oug HoyBladder prolapse, female, acquired N81.10BJul[place] [address] [place] [address]/oug [facility] [place] [address]/Doug HoyCOPD (chronic obstructive pulmonary disease) J44.9 and Right foot pain M79.671BVKind[facility] [facility] [place] [address]/12/2024Doug HoyEncounter for examination of ears and hearing without abnormal findings Z01.10BJul[place] [address] [place] [address]/Doug HoyOther fatigue R53.83 ; Other abnormal glucose R73.09 ; Pure hypercholesterolemia, unspecified E78.00 and Encounter for screening for malignant neoplasm of colon Z12.11BJul[place] [address] [place] [address]/Doug HoCindy [place] [address] [place] [address]/10/2024Doug HoyHypothyroidism E03.9[address] [place] [address]/12/2024Doug Hoy Rectal bleeding K62.[address] [place] [address]/12/2024Doug HoyHyperproteinemia E88.09Bu[address] [place] [address]/04/2024Doug HoyBVKindred Hospital [facility] [place] [facility] [place] [address]/ Dontrell HoyContusion of head S00.93XA and Contusion of leg, left S80.12XALauren [place] [address] [place] [address]/05/2024 [facility] [place] [address]/Doug HoCindy [place] [address] [place] [address]/Doug HoyOpen wound of leg, left, subsequent encounter S81.802DLauren [place] [address] [place] [address]/Doug Hoy Assessments Encounter Date Diagnosis (ICD Code) Assessment [...] schedule the testing. With the closing of [facility] Pul[facility] this week, I explained to the patient that I would be unable toF/U immediately with the patient if she were to get the LDCT done at this time. I provided her withoptions: -Either I or her PCP can order the LDCT and refer her to a different top edge beveler if something very concerning shows -Wait several [...] loss, excessive night sweats, fevers, or hemoptysis. 01/31/2024Spinal stenosis (ICD-10 - M48.00)4Pulmonary hypertension (ICD-10 - I27.20)4Right foot pain (ICD-10 - M79.671)04/17/2024Serous otitis media (ICD-10 - H65.90)mucinex, zyurtec and flonase - update in a week 5Acute bronchitis, unspecified organism (ICD-10 - J20.9)Rest and drink more liquids, especially water. You may use a humidifier or vaporizer to help keep the drainage moist. Yagg-gfu-iapksok Nasal Saline may help the stuffy and runny nose. Use Ibuprofen and or Tylenol as needed for fever, chills, body aches or pain. Children 5 years old should not be given mfut-ffu-jejqnrx cough and cold medications such as guaifenesin and dextromethorphan. If you're over age 5, you may try yiqu-rtf-ikaxexb cold medications such as guaifenesin and dextromethorphan, [...] go to the emergency room or call [phone] (ICD-10 - G43.909)08/08/2024ellulitis (ICD-10 - L03.90)08/09/2024ellulitis (ICD-10 - L03.90)5Cellulitis (ICD-10 - L03.90)01/24/2025AD (coronary artery disease) (ICD-10 - I25.10)Recommend taking hte aspiorin QOD103/26/2024 Weight loss, abnormal (ICD-10 - R63.4)01/31/2024Spinal stenosis, lumbar region with neurogenic claudication (ICD-10 - M48.062)02/21/2024ladder prolapse, female, acquired (ICD-10 - N81.10)04/05/2024OPD (chronic obstructive pulmonary disease) (ICD-10 - J44.9)04/24/2024Encounter for examination of ears and hearing without abnormal findings (ICD-10 - Z01.10)05/31/2024Other fatigue (ICD-10 - R53.83)06/20/2024Hypothyroidism (ICD-10 - E03.9)06/22/2024Rectal bleeding (ICD- 10 - K62.5)06/22/2024Hyperproteinemia (ICD-10 - E88.09)08/11/2024ontusion of head (ICD-10 - S00.93XA)09/04/2024Open wound of leg, left, subsequent encounter (ICD-10 - S81.802D)08/11/2024ontusion of leg, left (ICD-10 - S80.12XA) 05/31/2024Other abnormal glucose (ICD-10 - R73.09)04/05/2024Right foot pain (ICD-10 - M79.671)09/26/2024OPD (chronic obstructive pulmonary disease) (ICD-10 - J44.9) [...] restrictive pulmonary physiology. Weight loss highly recommended. 05/31/2024Pure hypercholesterolemia, unspecified (ICD-10 - E78.00)05/31/2024 Encounter [...] CT Chest Low Dose for Screening* 025 Insurance Providers Payer Name Payer Address Payer Phone Subscriber Number Group Number Insured Name Patient Relationship to Insured Coverage Start Date Coverage End Date [place] [address] [place] [address] [id number] Wander Sadler - patient is the [id number] 2013[employer] MEDICARE SUPPLEMENTPO [address] [address] [place] [id number], LouiseSe - patient is the [id number] 2018 Medications Administered Medication Instructions Date of [...] Back Surgery 05/11/2021 Right Foot Surgery cataract-lens implantshysterectomyRt Myringotomy, t-tube placement, nasal endoscopy- Dr Mathews07/06/20249773rcmqxgfvegt10/10/25
--- NOTE | 2025-01-26 08:04 | CT_ITS ---
The [address] [address] Patient Name: JUSTIN COLLINS MRN: [id number] date: 1950 Sex: F Assigned Patient Location: CT Current Patient Location: CT Accession/Order Number: [id number] Exam Date: 01/26/2025 08:10 Report Date: 01/26/2025 08:55 At the request of: JANET MUNOZ MD Procedure: CT abdomen pelvis wo con CT ABDOMEN AND PELVIS WITHOUT CONTRAST COMPARISON: 11/22/2018 CLINICAL DATA: Decreased appetite and unintentional weight loss. Low abdominal pain and gas after eating. Spiral images were obtained through the abdomen and pelvis without contrast. This CT exam was performed using one or more following dose reduction techniques: Automated exposure control, adjustment of the mA and/or kV according to patient size, or use of iterative reconstruction technique. Limited cuts through the lung bases show no contributory pulmonary findings. There is a tiny hiatal hernia. Evaluation of the intra-abdominal organs is slightly limited by the absence of contrast. No calcified gallstones are present. No intrahepatic masses are seen. The spleen, pancreas and adrenal glands show no acute findings. Mild bilateral perinephric fibrofatty stranding is present. There is a stone at the lower pole of the right kidney measuring approximately 6 mm in size. No hydronephrosis is noted. There is a small amount of plaque at the aorta and iliac arteries. There are small abdominal lymph nodes. No ascites is seen. The small bowel loops are normal caliber. Mild stool is present along the colon. There is subtle scoliotic curvature at the spine. There are also multilevel degenerative changes from L2 - 3 down and postoperative changes with X-Stop devices at L3-4 and L4-5. Images through the pelvis show no appendiceal inflammation. There are normal caliber small bowel loops. There is some stool at the rectum though the remainder of the distal colon is decompressed. A few sigmoid diverticula are visualized, without associated active inflammation. The uterus is surgically absent. No urinary bladder abnormalities are seen. There is no ascites. CT/CT abdomen pelvis wo con IMPRESSION: RIGHT NEPHROLITHIASIS. NO BOWEL OR URINARY TRACT OBSTRUCTION. MINOR DIVERTICULOSIS. NO OTHER ACUTE FINDINGS. Impression dictated by: Kelly Lao M.D. 01/26/2025 8:55 AM Dictation Location: [place] [address] Electronically authenticated by: [id number] Y Date: 01/26/2025 08:55
== END 2025-01-26 08:01 | disposition home or self-care (01) ==
LOC: CT 08:00
PROVIDERS: PCP Family Medicine; Visit Provider Internal Medicine Hematology & Oncology
DX: D64.9 Anemia, unspecified (principal); D63.1 Anemia in chronic kidney disease; R10.84 Generalized abdominal pain; R63.4 Abnormal weight loss; R10.32 Left lower quadrant pain; N20.0 Calculus of kidney; K57.90 Diverticulosis of intestine, part unspecified, without perforation or abscess without bleeding
CPT/HCPCS: 74176

== ENCOUNTER 2025-02-09 07:55 | Outpatient (OUT) | payer MEDICARE, SELFPAY ==
--- OUTSIDE RECORDS SUMMARY | 2024-08-15 06:15 | XMS_ITS ---
Author Organization The [facility] in [place] Address [address] [place] [place] [address] Care Team Providers Care Cell Attendant Helper Name Role Phone Dontrell Arvizu Primary Care Provider Beatriz Campos Unavailable [phone] REASON FOR VISIT MD Encounters Encounter Location Date Provider Diagnosis The [facility] Oncology [address] [place] [address] 08/15/2024 Beatriz Campos Plan Of Treatment No Information Progress Notes * Vero COLLINS MDOB:[birth year] (74 yo F)Acc No.[id number]:08/15/2024 UNLOCKED PROGRESS NOTE Progress Notes Patient: Vero FIELD :Juliann Campos M.D.:1950???Age:74 Y ???Sex:FemaleDate:08/15/2024Phone:[phone]:[address]Pcp:Dontrell Arvizu Subjective: * Chief Complaints: * 1 . MD. * Medical History: Objective: * Vitals: Assessment: Plan: * Treatment: * * Electronic signature of Beatriz Campos MD, [id number] on 02/09/2025 at 07:59 AM ESTSign off status: PendingVisit Status:?CANC (Cancelled) * Provider: Noel Campos M.D. Date: 0 08/15/2024 Generated for Printing/Faxing/eTransmitting on:?02/09/2025 07:59 AM EST
--- OUTSIDE RECORDS SUMMARY | 2024-08-15 10:00 | XMS_ITS ---
Author Organization The [facility] in [place] Address [address] [place] [address] Care Team Providers Care Dewatering Filtering Supervisor Name Role Phone Dontrell Arvizu Primary Care Provider [phone] Beatriz Campos Unavailable [phone] REASON FOR VISIT MD Encounters Encounter Location Date Provider Diagnosis The [facility] Oncology [address] [place] [address] 08/15/2024 Beatriz Campos Plan Of Treatment No Information Progress Notes * Vero COLLINS MDOB:[birth year] (74 yo F)Acc No.[id number]:08/15/2024 UNLOCKED PROGRESS NOTE Progress Notes Patient: Vero FIELD :Juliann Campos M.D.:1950???Age:74 Y ???Sex:FemaleDate:08/15/2024Phone:[phone]:[address]Pcp:Dontrell Arvizu Subjective: * Chief Complaints: * 1 . MD. * Medical History: Objective: * Vitals: Assessment: Plan: * Treatment: * * Electronic signature of Beatriz Campos MD, [id number] on 02/09/2025 at 07:59 AM ESTSign off status: PendingVisit Status:?CANC (Cancelled) * Provider: Noel Campos M.D. Date: 0 08/15/2024 Generated for Printing/Faxing/eTransmitting on:?02/09/2025 07:59 AM EST
--- OUTSIDE RECORDS SUMMARY | 2024-08-22 10:00 | XMS_ITS ---
Author Organization [facility] in [place] Address [address] [place] [address] Care Team Providers Care Facetor Name Role Phone Dontrell Arvizu Primary Care Provider Beatriz Campos Unavailable [phone] REASON FOR VISIT MD Encounters Encounter Location Date Provider Diagnosis [facility] On[facility] [address] [place] [address] 08/22/2024 Beatriz Campos Plan Of Treatment No Information Progress Notes * Vero COLLINS MDOB:[birth year] (74 yo F)Acc No.[id number]:08/22/2024 UNLOCKED PROGRESS NOTE Progress Notes Patient: Vero FIELD :Juliann Campos M.D.:1950???Age:74 Y ???Sex:FemaleDate:08/22/2024Phone:[phone]:[address]Pcp:Dontrell Arvizu Subjective: * Chief Complaints: * 1 . MD. * Medical History: Objective: * Vitals: Assessment: Plan: * Treatment: * * Electronic signature of Beatriz Campos MD, [id number] on 02/09/2025 at 07:59 AM ESTSign off status: PendingVisit Status:?ANSPH (Voice) * Provider: Noel Campos M.D. Date: 0 08/22/2024 Generated for Printing/Faxing/eTransmitting on:?02/09/2025 07:59 AM EST
--- OUTSIDE RECORDS SUMMARY | 2025-01-23 04:30 | XMS_ITS ---
Author Organization [facility] in [place] Address [address] [place] [address] Care Team Providers Care Biochemist Name Role Phone Dontrell Arvizu Primary Care Provider [phone] Beatriz Campos Unavailable [phone] REASON FOR VISIT MD Encounters Encounter Location Date Provider Diagnosis [facility] On[facility] [address] [place] [phone] 01/23/2025 Beatriz Campos Plan Of Treatment No Information Progress Notes * Vero COLLINS MDOB:[birth year] (74 yo F)Acc No.[id number]:01/23/2025 UNLOCKED PROGRESS NOTE Progress Notes Patient: Vero FIELD :Juliann Campos M.D.:1950???Age:74 Y ???Sex:FemaleDate:01/23/2025Phone:[phone]:[address]Pcp:Dontrell Arvizu Subjective: * Chief Complaints: * 1 . MD. * Medical History: Objective: * Vitals: Assessment: Plan: * Treatment: * * Electronic signature of Beatriz Campos MD, [id number] on 02/09/2025 at 07:59 AM ESTSign off status: PendingVisit Status:?PEN (Pending) * Provider: Noel Campos M.D. Date: 03/25/2024 Generated for Printing/Faxing/eTransmitting on:?02/09/2025 07:59 AM EST
--- OUTSIDE RECORDS SUMMARY | 2025-01-31 09:00 | XMS_ITS | Encounter Summary ---
Author Organization [facility] Address [address] [place] [address] Care Team Providers Care Kier Hand Name Role Phone Jeremiah Arvizu MD Primary Care Provider [phone] Encounter Details DateTypeDepartmentCare Team (Latest Contact Info)Nhgmpgsrrmc40/19/2025 9:00 AM ESTOffice Visit [facility] [place] [address] [place] [address] Tato Salcido MD [address] [facility] [address] [facility] [place] [address] Cardiac pacemaker in situ (Primary Dx); Precordial pain Social History Tobacco UseTypesPacks/DayYears UsedDateSmoking Tobacco: FormerCigarettesQuit: 2007Passive Smoke Exposure: NeverSmokeless Tobacco: NeverAlcohol UseStandard Drinks/WeekCommentsYes0 (1 standard drink = 0.6 oz pure alcohol)rarely Humiliation, Afraid, Rape, and Kick questionnaireAnswerDate RecordedWithin the last year, have you been afraid of your partner or ex-partner?No07/09/2023 Emotionally AbusedNot on file07/09/2023hysically AbusedNot on file07/09/2023 Sexually AbusedNot on file07/09/2023Overall Financial Resource Strain (CARDIA) AnswerDate RecordedHow hard is it for you to pay for the very basics like food, housing, medical care, and heating?Not hard at all01/05/2023HQ-2AnswerDate RecordedPatient Health Questionnaire-2 [id number] Safety & Environment AnswerDate RecordedWithin the last year, have you been afraid of your partner or ex-partner?No07/09/2023Within the last year, have you been humiliated or emotionally abused in other ways by your partner or ex-partner?No07/09/2023 Within the last year, have you been kicked, hit, slapped, or otherwise physically hurt by your partner or ex-partner?No07/09/2023Within the last year, have you been raped or forced to have any kind of sexual activity by your part ner or ex-partner?No07/09/2023In the past year have you been physically or sexually abused?Unrecognized value07/09/2023TransportationAnswerDate RecordedIn the past 12 months, has lack of transportation kept you from medical appointments or from getting medications?No01/05/2023Lack of Transportation (Non-Medical)Not on file01/05/2023Housing Stability Vital SignAnswerDate RecordedUnable to Pay for Housing in the Last YearNot on file01/05/2023Number of Places Lived in the Last YearNot [...] of Food in the Last YearNot on file 01/05/2023CommentsNoSex and Gender InformationValueDate RecordedSex Assigned at LcfcvBqtmua53/06/2025 4:22 PM EDTLegal MxkDucfaa92/29/2022 9:47 PM EDTGender DgmraqqmBamknn66/06/2025 4:22 PM EDTSexual OrientationHeterosexual or Zvdbjsyi35/06/2025 4:22 PM EDTdocumented as of this encounter Last Filed Vital Signs Vital SignReadingTime TakenCommentsBlood Ftbhhanm088/7311 8:40 AM EST Unltl3977 8:40 AM ESTTemperature--Respiratory Rate--Oxygen Dbweccnclg74% 01/31/2025 8:40 AM ESTInhaled Oxygen Concentration--Qinxew442 kg (275 lb) 01/31/2025 8:40 AM XTSBzugjs868.6 cm (5' 4 )01/31/2025 8:40 AM ESTBody Mass Index47. 8:40 AM ESTdocumented in this encounter Progress Notes * Tato Salcido MD - 01/31/2025 9:00 AM EST Images from the original note were not included. [facility] Cardiology Clinic Note Chief Complaint: Patient is here today for a requested appointment due to a sensation through her back and chest. Patient states she seen her blood Dr. Who did a ct scan and blood work due to patientlosing so much weight and inflammation in her body. Patient state she has been having bad chest pain pressure like in the center of her chest which wakes her up occasional at night, night sweat, SOB/PATEL, leg swelling, fatigue, occasional racing heart/palpitations. HPI: Vero Sadler is a 74 y.o. female History of myocardial bridging, atrial [...] ago that were normal per her description. Update 01/31/2025: The patient is here due to concerning chest pain; she notes sharp chest pain that occurs sporadically throughout the day and night. It is located in the center of the chest and does not radiate. It is not associated with shortness of breath. There are no associated lightheadedness or dizziness. Pertinently, she has lost more than 50 pounds unintentionally since August of this year. She is seeing a sales closer currently; workup has revealed a significantly elevated ESR. The patient has stage IV chronic kidney disease. Cardiology ROS: Review of Systems Constitutional: Positive for malaise/fatigue and night sweats. Cardiovascular: Positive for chest pain ( pressure [...] of Abnormal ECG, Adverse effect of anesthesia, Arrhythmia, Arthritis, Chronic kidney disease, COPD (chronic obstructive pulmonary disease) ([facility]), Hypertension, Myocardial infarction ([facility]), and Obstructive sleep apnea (10/02/2022). Surgical History She has a past surgical history that includes Eye surgery; Cardiac catheterization; Foot surgery (Right); Hysterectomy; Colonoscopy (02/09/2023); Insert / replace / remove pacemaker (01/12/2023); andOther surgical history (Bilateral, 05/31/2023). Social History She reports that she quit smoking about 17 years ago. Her smoking use included cigarettes. [...] Other (malig neoplastic disease) Daughter Allergies Penicillins and Fluticasone propionate Medications Current Outpatient Medications: albuterol 90 mcg/actuation [...] 1 mg by mouth in the morning. Patient only takes when she is home for the day.), Disp: 90 tablet, Rfl: 3 calcium carbonate 600 mg calcium (1,500 mg) tablet, Take 600 mg by mouth in the morning., Disp: , Rfl: carvedilol (Coreg) 12.5 mg tablet, Take 1 tablet (12.5 mg) by mouth in the morning and at bedtime.,Disp: 60 tablet, Rfl: 0 hydrALAZINE (Apresoline) 100 mg tablet, Take 100 mg by mouth in the morning, at noon, and at bedtime., Disp: , Rfl: levothyroxine (Synthroid, Levoxyl) 100 mcg tablet, Take 100 mcg by mouth before breakfast., Disp: ,Rfl: liothyronine (Cytomel) 25 mcg tablet, Take 1.5 tablets by mouth in the morning., Disp: , Rfl: lisinopril 10 mg tablet, TAKE 1 TABLET BY MOUTH EVERY DAY IN THE MORNING, Disp: 90 tablet, Rfl: 3 lovastatin (Mevacor) 20 mg tablet, Take 20 mg by mouth in the morning., Disp: , Rfl: magnesium oxide (Mag-Ox) 400 mg (241.3 mg magnesium) tablet, Take 1 tablet by mouth in the morning., Disp: , Rfl: methylcellulose, laxative, (CitruceL Sugar Free) powder, Mix 1 tablespoon in 8 oz (240 mL) of cold water. Take by mouth once daily. Increase frequency as needed up to 3 times daily. Start with a low dose and slowly increase to prevent worse bloating. (Patient not taking: Reported on 10/24/2024), Disp: 479 g, Rfl: 3 pantoprazole (ProtoNix) 40 mg EC tablet, TAKE 1 TABLET BY MOUTH ONCE EVERYDAY BEFORE BREAKFAST *DO NOT CRUSH/CHEW/SPLIT*, Disp: 90 tablet, Rfl: 1 revefenacin (Yupelri) 175 mcg/3 mL nebulizer solution, Take 175 mcg by nebulization if needed each day., Disp: , Rfl: traMADol (Ultram) 50 mg tablet, TAKE 1 TABLET BY MOUTH TWICE A DAY NEEDED FOR 30 DAYS (Patient not taking: Reported on 10/24/2024), Disp: , Rfl: Last Recorded Vitals BP 127/73 (BP Location: Left wrist, Patient Position: Sitting) Pulse 79 Ht 1.626 m (5' 4 ) Wt125 kg (275 lb) LMP (LMP Unknown) SpO2 96% BMI 47.20 kg/m?? Physical Examination: GENERAL: alert and oriented x3, [...] II DD, biatrial enlargement, mild TR, moderately elevatedright sided pressures (RVSP 45-60) Cardiac cath 07/2016 [...] symptoms persist. Irvin Posada MD Cardiac Electrophysiology BUN Collected Result Units Reference 01/17/25 16:48 31.0 H mg/dL 7.0-18.0 Creatinine Collected Result Units Reference 01/17/25 16:48 1.92 H mg/dL 0.55-1.02 ESR Collected Result Units Reference 01/17/25 16:48 86 H Carotid US: mild plaque Assessment: Chest pain - likely inflammatory ?pericarditis Epigastric pain - likely GERD/PUD Benign hypertensive heart and CKD, stage 3 (GFR 30-59), w CHF (CMS/HCC) s.cr 1.69 (02/2022) Bradycardia s/p PPM NSVT Paroxysmal nonsustained atrial tachycardia Myocardial bridging CKD Significantly elevated ESR Unintentional weight loss Plan: Given the characteristics of her pain that sounded pleuritic, as well as her elevated ESR, we will obtain an echocardiogram to rule out pericardial effusion, evaluate ejection fraction, and wall motion as well as valvular function She is to follow-up with Dr. Posada with electrophysiology for concerns regarding pain over the pacemaker site; I reassured her that this may be related to the overall inflammation If her echocardiogram shows significant wall motion abnormalities or reduced EF, we can consider further investigations - if not, I would not recommend an ischemic workup given the characteristics of the chest pain as well as an of yet undiagnosed systemic illness RTC in 1-2 months Tato Salcido MD, MPH, FACC, [facility], [facility] Interventional Cardiology Pager Email: [email or web address] documented in this encounter Plan of Treatment DateTypeDepartmentCare Team (Latest Contact Info)Ludtxjjqagk73/16/2025 10:30 AM ESTOffice Visit [facility] [address] [place] [address] Irvin Posada MD [address] [place] [phone] documented as of this encounter Visit Diagnoses Diagnosis Cardiac pacemaker in situ- Primary Precordial pain documented in this encounter Care Teams Team MemberRelationshipSpecialtyStart DateEnd Date Jeremiah Arvizu MD [address] [place] [address] PCP - Hgggbdz80/14/22documented as of this encounter
--- OUTSIDE RECORDS SUMMARY | 2025-02-06 19:41 | XMS_ITS | Continuity of Care Document ---
Author Organization [facility] Address [address] [place] [address] Phone Care Team Providers Care Sales Training Representative Name Role Phone Jeremiah Arvizu MD Primary Care Provider Kal Molina MD Attending Provider [phone] Kal Molina MD Other Provider Regi Sanchez CMA Attending Provider Unavailabl Brandyn Talbot Attending Provider Care Teams Patient Care Team Team Status: Active Member Role/Relationship Status Gabo Arvizu MD Primary Care Provider Active Visit Care Team Team Status: Active Member Role/Relationship Status Gabo Arvizu MD Primary Care Provider Active Start: January 22, 2025 Rebecca Samson ProviderActiveStart: January 22, 2025 Kal Molina MDOther ProviderActiveStart: January 22, 2025 Visit Care Team Team Status: Active Member Role/Relationship Status Gabo Arvizu MD Primary Care Provider Active Start: January 22, 2025 Regi Sanchez CMAAttending ProviderActiveStart: January 22, 2025 Patient Care Team Team Status: Inactive Member Role/Relationship Status Gabo Arvizu MD Primary Care Provider Active Start: February 06, 2025 End: February 06Rebecca Flower ProviderActiveStart: February 06, 2025 End: February 06, 2025 Chief Complaint and Reason for Visit Chief Complaint Admit Date hx of colon polyps January 22, 2025 7:08am Amb Documentation January 22, 2025 12:53pm D63.1 E78.5 N18.4 I12.9 February 06, 2 025 8:55am Allergies, Adverse Reactions, Alerts Allergen Type Severity [...] Legal Sex Female (finding) Sex Assigned At BirthFemaleDeceer 1949 Family History Relationship Condition Age at Onset Recorded Date/T des father Malignant neoplasm of colon Unknown HypertensionUnknownmotherMalignant neoplasm of rectumUnknownHeart diseaseUnknown Abscess of intestine due to Crohn's diseaseUnknownPresence of cardiac pacemaker UnknownUlcerative colitisUnknowndaughterMalignant neoplasm of pancreasUnknown Problems Active Problems Problem Diagnosis/Recorded Date Onset Date Stat Secondary hyperparathyroidism January 06, 2024 12:51 pm [...] July 19, 2024 10:28amfollow instructions given at [facility] 3350-Electrolytes (Golytely) 236-22.74-6.74 -5.86 gram recon fwlkCcmeljmqolyk591RRRPV88J613995Krg 2024 11:00pmNovember 2024 7:26amuntil fecal effluent is clearCalcium Carbonate-Vitamin D3 600 mg-10 mcg (400 unit) tabletActive0.ROUTE.HNICYOJ1729 October 23, 2024 10:49amTAKE TWO TABLETS BY MOUTH IN THE MORNINGUnknown Magnesium Oxide 400 mg (241.3 mg magnesium) tabletActive0.ROUTE.ZHAQUHF608Vygvap 2024 10:51amTAKE 1 TABLET BY MOUTH DAILYUnknownLiothyronine 25 mcg tablet Dnxgit92.5MCGPODailyOctjames b. [facility] 2023 11:00pmUnknownLovastatin 20 mg tablet Aqnosk26KCBMVwlorSgxhpyj 2023 11:00pmUnknownLevothyroxine 100 mcg capsule Jgodsuzdvrlo933GIDFSOnmehWauzaqd 2023 11:00pmApril 2024 10:17am Hydralazine 100 mg rzztbbXbmxfftlscvn967ZJRGLfiop times dailyOctjames b. haggin [facility] hospital 2023 11:00pmJuly 2024 10:10amAspirin (Adult Low Dose Aspirin) 81 mg tablet,delayed release (DR/EC)Rudpff79RBONXzdfdHrqqema 2023 11:00pmUnknown Carvedilol 25 mg bbeaofAelvaz67.5MGPOTwice dailyOctjames b. hag[facility] hospital 2023 11:00pm UnknownHyoscyamine Sulfate 0.125 mg tabletDiscontinued0.125MGPOFour times daily January 05, 2024 11:00pmDeceer 2023 11:04amPantoprazole 40 mg tablet,delayed release (DR/EC)Lozlvwijsglf38WQWVHjfmwSgoopaw 2023 11:00pm June 27, 2024 10:19amClotrimazole-Betamethasone 1-0.05 % ywrdqXrpauf7NTZSUN TOPICALDaily as needed for rashOctjames b. h[facility]gin [facility] hospital 2023 11:00pmUnknownBumetanide 1 mg khvfxiPjhvqt7ITIODs DirectedOctober 2023 11:00pmUnknownAlbuterol Sulfate 90 mcg/actuation HFA aerosol kigvhqkVwqixk1HSHLVKLCEQAFXCOlik times daily as needed for shortness of breath or wheezingOctjames b. haggin memorial hospital 2023 11:00pmUnknown Albuterol Sulfate 2.5 mg /3 mL (0.083 %) solution for nebulizationActive2.5MG INHALATIONEVERY 4-6 HOURS as needed for shortness of breath or wheezingOctober 2023 11:00pmUnknownCalcium Carbonate-Vitamin D3 600 mg-10 mcg (400 unit) imqwokRjvywwmkgphn4IJOQLZabqu morningOctober 2023 11:00pmApril 2024 10:58amLisinopril 10 mg jnlpzfSfybfm26YRTWAtqzzHvaccvo 2023 11:00pmUnknown Tramadol 50 mg xowxtrPdcjgktbnhyz64UXMZCnaag daily as neededOctjames b. haggin memorial hospital 2023 11:00pmApril 2024 10:19amSod Picosulf-Mag Ox-Citric Ac (Clenpiq) 10 mg-3.5 gram- 12 gram/160 mL solutionDiscontinuedMLPOTwice dailyOctjames b. haggin [facility] hospital 2023 11:00pmDecember 2023 11:05amFreeTextSiml at 3pm, 160ml at 9pm the day prior to colonoscopy Orally BID; Note: Source Status: Start; Refills: 0; Qty: 1 Box; Provider: Musa Bearden HPantoprazole 40 mg tablet,delayed release (DR/EC) Bfveku35VHRVWqfqa dailyApril 2024 10:17amUnknownHydralazine 100 mg tablet Ubkzba912MYTJOhbmz dailyJuly 2024 10:09amUnknownSodium Polystyrene Sulfonate chllihUwvovfpouiom39QYVT6 Times a weekDece2023 12:00amApril 2024 10:57amLevothyroxine 88 mcg hrkfkoRwdifg32NBUMVCbobqEoqmb 2024 11:00pmUnknownSodium Polystyrene Sulfonate goonzpCjrycfextzvb58FJLJ1 Times a sjmr3538Hkfvd 2024 10:56amApril 2024 12:04pmCalcium Carbonate- Vitamin D3 600 mg-10 mcg (400 unit) jopfgxBgpnhgxddnsb5XXSXAPukby cnearqz8059 June 27, 2024 10:57amApril 2024 11:27amCalcium Carbonate-Vitamin D3 600 mg-10 mcg (400 unit) suwzmwMzyhnjxjocom0GFOISAsahd ytyzfkw8498Dkkqo 15th, 2025 11:27amAugust 2024 10:50amMagnesium Oxide 400 mg magnesium tablet Cpawvuyutrxk871BGENSsyxu737Hvagc 2024 11:00pmAugust 2024 10:51am Sodium Polystyrene Sulfonate zvficlVhpenj42WGFK5 Times a msjj3410Jxcrj 2024 12:04pmUnknown Relevant Diagnostic Tests and/or Laboratory Data Laboratory Results Test Collection Date/Time Result Date/Time Result Interpretation Reference Range Result Comment Performing Site Corrected White Blood Count February 06, 2025 9:19am February 06, 2025 2:14pm 6.0 10*3/uL 3.8-11.6F[facility] [id number] [address] [facility] [address]Crm Blood CountFebruary 06, 2025 9:19amNove2024 2:14pm3.89 10*6/uL3.60-5.00[facility] [id number] [address] [facility] 6[address]XzaeeemoofVjcnngbh 25th, 2025 9:19amNovemb2024 2:14pm 11.7 g/dLBelow low .8-15.4FHenry [facility] [id number] [address] [facility] 387[address]WeqfxdocdpCmzutrti 25th, 2025 9:19amNovemb2024 2:14pm 35.1 %34.0-46.4FHenry [facility] Hospital [facility] [id number] [address] [facility] 92[address]Bmda Corpuscular VolumeNov2024 9:19amNove2024 2:14pm90.3 rJ50-863CienlslttBlanchard Valley [facility] [id number] [address] [facility] 87858Vflg Corpuscular HemoglobinNovember 2024 9:19amNove2024 2:14pm30.0 pg24.7-34.3FHenry [facility] Hospital [facility] [id number] [address] [facility] 10582Ttrg Corpuscular Hemoglobin ConcentNovember 2024 9:19am February 06, 2025 2:14pm33.2 g/dL32.0-35.0[facility] [id number] [address] [facility] 56251Buy Cell Distribution WidthNovember 2024 9:19amNove2024 2:14pm14.0 %11.9-15.3FHenry [facility] [id number] [address] [facility] [address]Tppbojze CountNovember 2024 9:19amNove2024 2:49ik183 10*3/bU223-175CealxjdsvBlanchard Valley Health System [facility] [id number] [address] [facility] 478[address]Cdza Platelet VolumeNovember 2024 9:19amNove2024 2:14pm7.7 fL6.3-10.7FHenry [facility] Hospital [facility] [id number] [address] [facility] [address]80[address]Ppyhc ColorNovember 2024 9:19amNove2024 2:03pm Light-yellowYellowBlanchard Valley Health System [facility] [id number] [address] [facility] [address]Kwkbo AppearanceNovember 2024 9:19amNove2024 2:03pmClearClearBlanchard [facility] [id number] [address] [facility] 98[address]Evcpa Specific GravityNovember 2024 9:19amNove2024 2:03pm1.0161.001-1.030[facility] [id number] [address] [facility] 5500[address]Kpqoy pHNovember 2024 9:19amNovemb2024 2:03pm5.5 5.0-9.0[facility] [id number] [address] [facility] 22717Avjxd Leukocyte EsteraseNovember 2024 9:19amNoveer 2024 2:03pmNegativeNegativeBlanchard [facility] [id number] [address] [facility] 20820Ptdya NitriteNovember 2024 9:amNove2024 2:03pmNegativeNegativeBlanchard Valley [facility] [id number] [address] [facility] 569[address]Rjkgp ProteinNovember 2024 9:amNove2024 2:03pmNegative mg/dLNegativeBlanchard Valley Health System [facility] [id number] [address] [facility] 43904Ellyf Glucose (UA)February 06, 2025 9:amNove2024 2:03pmNormal mg/dLNormalBlanchard Valley Health System [facility] [id number] [address] [facility] 26248Sdhrv KetonesNovember 2024 9:amNove2024 2:03pmNegativeNegativeBlanchard [facility] [id number] [address] [facility] 32646Qddcz UrobilinogenNovember 2024 9:amNove2024 2:03pmNormal mg/dLNormalBlanchard Valley [facility] System [facility] [id number] [address] [facility] 01160Jfdwx BilirubinNovember 2024 9:amNove2024 2:03pmNegativeNegativeBlanchard [facility] [id number] [address] [facility] 75849Sljzw Occult BloodNovember 2024 9:19amNove2024 2:03pmNegativeNegativeBlanchard [facility] [id number] [address] [facility] 39816Tqzct RBCNovember 2024 9:amNove2024 2:07pm1- 2 [HPF]0-[facility] [id number] [address] [facility] 22055Tlhpt WBCNovember 2024 9:amNovemb2024 2:07pm3- 4 [HPF]0-4FHenry [facility] Hospital [facility] [id number] [address] [facility] 04290Raegx Squamous Epithelial CellsFebruary 06, 2025 9:19am February 06, 2025 2:41mt3-5 [HPF]Above high normal0-2FHenry [facility] Hospital [facility] [id number] [address] [facility] 39[address]Iitij BacteriaNov2024 9:19amNove2024 2:07pmRare [HPF]None SeenBlanchard Valley Health System [facility] [id number] [address] [facility] 00974Yrjjn Hyaline CastsNov2024 9:19amNove2024 2:07pmNone [LPF]0-8[facility] [id number] [address] [facility] 56135Vljodkv LevelNov2024 9:amNove2024 2:22pm93 mg/gX52-498ICQ recommended reference rangeRandom Glucose Reference Range is dependent on time and content of last meal. Glucose of more than 200 mg/dL in a nonstressed, ambulatory subject supports the diagnosisof Diabetes Mellitus.[facility] [id number] [address] [facility] 72658Exbub Urea NitrogenFebruary 06, 2025 9:ove2024 2:22pm43 mg/dLAbove high normal7-25[facility] [id number] [address] [facility] 61934TkfucchrseBotvyyhw 25th, 2025 9:ove2024 2:22pm 1.86 mg/dLAbove high normal0.60-1.20[facility] [id number] [address] [facility] 51104Hsioichqh GFR (CKD-EPI)February 06, 2025 9:ove2024 2:22pm28.249 mL/MinBlanchard Valley Health System [facility] [id number] [address] [facility] 90009Lzdikr LevelNov2024 9:19amNove2024 2:01sp375 mmol/M855-090WijpryjrhBlanchard Valley Health System [facility] [id number] [address] [facility] 395[address]Skppoqnjl LevelNov2024 9:19amNovember 2024 2:22pm5.1 mmol/L3.5-5.1FHenry [facility] Hospital [facility] [id number] [address] [facility] 66430Ukryqgxn LevelNov2024 9:amNove2024 2:13rn074 mmol/LAbove high okivcm05-192LyxjnospbBlanchard Valley Health System [facility] [id number] [address] [facility] 91091Rdqdyw Dioxide LevelNov2024 9:amNove2024 2:22pm28.5 mmol/L21.0-31.0[facility] [id number] [address] [facility] 91200Fwnti GapNov2024 9:amNove2024 2:22pm 11.6 mEq/L6.0-15.0[facility] [id number] [address] [facility] 69057Bnuttks LevelNov2024 9:amNovemb2024 2:22pm8.9 mg/dL8.6-10.3FHenry [facility] Hospital [facility] [id number] [address] [facility] 94293Ljoibbfkrd LevelNov2024 9:ove2024 2:22pm3.6 mg/dL2.5-4.5FHenry [facility] Hospital [facility]tr [id number] [address] [facility] 28166Bcybtqxui LevelNov2024 9:amNove2024 2:22pm1.8 mg/dLBelow low normal1.9-2.7FHenry [facility] Hospital [facility]tr [id number] [address] [facility] 24770IwgjgabYlzhuhch 2024 9:amNove2024 2:22pm3.5 g/dL3.5-5.7FHenry [facility] Hospital [facility] [id number] [address] [facility] 42327Mgyh AcidNovember 2024 9:amNove2024 2:22pm 7.5 mg/dLAbove high normal2.3-6.6FHenry [facility] Hospital [facility] [id number] [address] [facility] 36369Gsfs LevelFebruary 06, 2025 9:ove2024 2:22pm 105 ug/hJ12-328QzwgosxymBlanchard Valley [facility] System [facility] [id number] [address] [facility] 948[address]Cdeze Iron Binding CapacityFebruary 06, 2025 9:ove2024 2:03sc609 ug/dLBelow low -913HzyauwzwjBlanchard Valley Health System [facility] [id number] [address] [facility] 93288Houq SaturationFebruary 06, 2025 9:2024 2:22pm41.5 %20-50[facility] [id number] [address] [facility] 29169QqyiffhwrvcHorhpraf 25th, 2025 9:2024 2:22pm 181 mg/dLBelow low igtfrt388-068QdzqicyosBlanchard Valley Health System [facility] [id number] [address] [facility] 29839AkpsqaahKauuvidi 25th, 2025 9:2024 4:04pm 94.3 ng/mL11.0-306.8[facility] [id number] [address] [facility] 1311251-Kpthkzl Vitamin D TotalFebruary 06, 2025 9:2024 4:11pm38.7 ng/oD22-796LDLGGCM D STATUS 25(OH)VITAMIN D RANGE (ng/mL) Deficient <20 Insufficient 20 to <30Sufficient 30 to 100Reference: Jo MF,Jessica NC, Elizabeth LAMBERT, et al. Evaluation,treatment, and prevention of vitamin D deficiency; an Endocrine Society clinical practice guideline. JCEM. 2010; 96(7):1911-30.[facility] [id number] [address] [facility] 90147Cznlnmbaqva Hormone (Intact)February 06, 2025 9:2024 4:15pm50.5 pg/cH51-39SvtkhaosxBlanchard Valley Health System [facility] [id number] [address] [facility] [address]Hikdcfbj Creatinine Clearance (ChemFebruary 06, 2025 9:19am February 06, 2025 2:22pmN/AFireDayton [facility] [id number] [address] [facility] 82250Ilmev Random CreatinineNov2024 9:19amNove2024 2:28pm85.00 mg/dLNo reference range establishedBlanchard Valley Health System [facility] [id number] [address] [facility] [address]3566Bvdgl Random Total ProteinFebruary 06, 2025 9:19amNove2024 2:28pm12 mg/dLAbove high normal0-9[facility] [id number] [address] [facility] 36520Hddpb Protein/Creatinine RatioNove2024 9:19am February 06, 2025 2:99iv926 mg/g{Cre}0-200[facility] [id number] [address] [facility] [address] Vital Signs Vital Reading Result Reference Range Collection Date/Time Height 65 [in_i] January 22, 2025 7:29ttCewxfy570.27 kgJanuary 22, 2025 7:39amHeart Rate78 /tvk52-142IcujcfasJanuary 22, 2025 9:10amRespiratory rate16 /bhg33-87TupwineiJanuary 22, 2025 9:10amOxygen saturation by Pulse %95-100January 22, 2025 9:10amBP Ifrdkxjy827 mm[Hg]100-140January 22, 2025 9:10amBP Bhovhwbdz76 mm[Hg]60-100January 22, 2025 9:10am Advance Directives Advance Directive Response Recorded Date/ Time Advance Directives No January 06, 2024 11:45am Insurance Providers [employer]or [place] Address [address] [facility] [address]Ifxbixd Info.Home Phone: Coverage Status Update:2025 Payer Group Member ID Coverage Type Subscriber Relationship to Subscriber Effective Date Expiration Date Cameron AUGUSTINE [id number] [place] Id: [id number] [place] [address] Home Phone: SelfMedicare Id: Suraj [id number] [place] Id: [id number] [facility] [address] Home Phone: Self Encounters Encounter Location(s) Arrival/Admit Date Discharge/Departure Date Discharge/Departure Disposition Provider(s) Non-patient / Non-visit -[facility] Novem 2024 7:08am Kal Molina MDNon-patient / [facility]January 22, 2025 12:53pmAmy [facility] Clinical-Lab [facility] February 06, 2025 8:55amNovember 2024 8:56amDischarged to home care or self care (routine discharge)Lizette Schaffer MD Plan of Treatment Future Tests Future scheduled test information is unavailable Pending Tests Pending diagnostic test information is unavailable Future Visits Future appointment information is unavailable Future Procedures Procedure Name Ordered Date Scheduled Date Discharge Order January 22, 2025 8:38am Novem 2024 8:38am Future Medications Future medication information is unavailable Patient Instructions Instruction Admit Date [facility] Diverticulosis Dis charge Instructions [facility] Hemorrhoids Discharge Instructions Know your Meds [facility] Colon Polypectomy Discharge InstructionsJanuary 22, 2025 7:08am
--- OUTSIDE RECORDS SUMMARY | 2025-02-09 07:59 | XMS_ITS | Clinical Summary ---
Author Organization [facility] Address [address] [place] [address] Care Team Providers Care Design Lead Name Role Phone Jeremiah Arvizu MD Primary Care Provider [phone] Allergies Active AllergyReactionsCriticalityNoted DateCommentsFluticasone Propionate Kseieah0010/24/20249027PnvpsbtdpbwOvywdGpntzz51/16/2022 Yeast infection Medications MedicationSigDispense QuantityRefillsLast FilledStart DateEnd [...] is home for the day., Reported on 01/31/2025 revefenacin (Yupelri) 175 mcg/3 mL nebulizer solution [...] ctive Additional Information Patient not taking.Reported on 01/31/2025 pantoprazole (ProtoNix) 40 mg EC tablet Indications:DuodenitisTAKE [...] 1 tablet by mouth in the morning.06/27/2024tive calcium carbonate-vitamin D3 600 mg-10 mcg (400 unit) tablet Take 2 tablets by mouth in the morning.01/16/2025tive Active Problems ProblemNoted DateDiagnosed DateAnemia of renal ylhlixf8701/30/2025ardiac elobcyaei23/18/8433Ruefpnvnrlvcx41/18/4579Aktcuzxxrltjcz19/18/2025ody mass index (BMI) 45.0-49.9, adult10/24/2024Intrinsic sphincter deficiency (ISD) 09/11/2024spirin long-term use05/09/2024AD (coronary artery disease)05/09/2024 Chronic obstructive pulmonary tzgilgl0405/09/2024Former vypjwo3105/09/2024History of colon bzitrv5105/09/2024History of tobacco abuse05/09/2024Hypercholesterolemia 05/09/20245893Mfmfdqzkgthnex34/25/2025Kidney rizmnm2605/09/2024Morbid obesity 05/09/2024Multiple pulmonary fjiajna7005/09/2024Status post lumbar spine operation 05/09/2024Stress incontinence, xjlafb2705/09/2024Stage 3a chronic kidney disease 01/31/20243048Sroyeetxrmiy04/13/2024KD (chronic kidney disease) stage 4, GFR 15-29 ml/min01/26/2024Secondary qyepflkocpgtxrznxwm61/13/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 Symptomatic qyjwfjoyzwq92/20/2023 Assessment & Plan (01/01/2023 5:19 PM EDT): [...] voiced understanding and agreement Other secondary pulmonary yofbyzmmdvgd53OSA on CPAP12/15/2022 Nonsustained paroxysmal ventricular nblvnqdndyx55/18/2023 Assessment & Plan (01/01/2023 5:22 PM EDT): Continue coreg 6.25 mg bid Obstructive sleep apnea/ Overview (10/02/2022): SOBIA=17.7 events/hour; Pranav SaO2=76%; Ijscba=148.0 lbs; BMI=52.7 kg/m2, Home Sleep Apnea Testing on09/25/2022 at [facility] [place] (ventricular tachycardia)04/29/2022 Overview (04/29/2022): Added automatically from request for surgery [id number] Clinical trial exam04/23/2022 Overview (04/23/2022): Added automatically from request for surgery [id number] A-fib04/21/2022Spinal stenosis of lumbar region with neurogenic claudication 01/30/2022Lower abdominal pain01/30/2022pondylosis of lumbosacral region without myelopathy or ghrnpqttenyal05/18/2022Essential eyuzaezygiuc20/12/2020 Chest pain07/27/20163292Ejhnhsj45/15/4736Eoijv08/15/8731Weyreki07/15/2017 Rxmojkmhblulpgi76/15/2017 Encounters DateTypeDepartmentCare ZnpeQlzvqfbgsyh63/19/2025 9:[address] [facility] [address] [facility] [place] [address] Tato Salcido MD Cardiac pacemaker in situ (Primary Dx); Precordial pain01/31/2025Orders Only [facility] [address] [place] [address] Nevaeh Curiel MA Elevated erythrocyte sedimentation rate (Primary Dx)11/10/2024 12:10 PM EDT Ancillary Procedure [facility] [address] [place] [address] Adjustment and management of cardiac eiuvywvui36/29/2025Orders Only [facility] [address] [place] [address] Irvin Posada MD 11/10/2024Orders Only [facility] [address] [place] [address] Irvin Posada MD 11/09/2024 12:40 PM EDTAncillary Procedure [facility] [address] [place] [address] Adjustment and management of cardiac pacemakerfrom Last 3 Months Immunizations ImmunizationAdministration DatesNext DuePfizer SARS-CoV-2 Quvpxiovqbp61/23/2021, 12/17/2020Unspecified Sars-Cov-2 Czhxrlfhaeh46/23/2021,12/17/2020 Family History Medical HistoryRelationNameCommentsmalig neoplastic diseaseDaughter HyperlipidemiaFatherHypertensionFathermalig [...] and Gender InformationValue Date RecordedSex Assigned at FnrslDzdmxf90/06/2025 4:22 PM EDTLegal SexFemale 09/10/2021 9:47 PM EDTGender AspisvvpXzerdg62/06/2025 4:22 PM EDTSexual OrientationHeterosexual or Niqokjxl65/06/2025 4:22 PM EDT Last Filed Vital Signs Vital SignReadingTime TakenCommentsBlood Kowmhwsl341/7311 8:40 AM EST Njkqq471401/31/2025 8:40 AM NBQPerbfsavggd37 ??C (96.8 ??F)02/09/2023 2:25 PM EST Respiratory Whpk0077 12:45 PM EDTOxygen Hnrmwgvkja16%01/31/2025 8:40 AM ESTInhaled Oxygen Concentration--Aptgvr118 kg (275 lb)01/31/2025 8:40 AM EST Nigrth895.6 cm (5' 4 )01/31/2025 8:40 AM ESTBody Mass Index47. 8:40 AM EST Plan of Treatment DateTypeDepartmentCare Team (Latest Contact Info)Xqzghlisgeg39/16/2025 10:30 AM ESTOffice Visit [facility] [address] [place] [address] Irvin Posada MD [address] [place] [address] Health MaintenanceDue DateLast DoneCommentsCT Hjmlmmzsxlsg1951FIT-DNA 1950FIT1950FOBT1950Medicare Annual Wellness (AWV)1950 Gkwxnzntbxbvg1951epression Usqdgvzks50/08/1963Pneumococcal Vaccine: 50+ Years (1 of 2 - PCV)1970Adult Xbvenht4102/19/19733051Dvvzzbxmi45/08/1991Zoster Vaccines (1 of 2)2001Fall Risk Forjnqxwd10/08/2016COVID-19 Vaccine ( - season)51, 01/04/2021, 12/17/2020, Additional history existsInfluenza Vaccine (#1)8150Nnqfgmfztwu84/28/01340504/11/2022, 02/09/2023, 07/06/2018Colorectal Cancer Mwubmvlzz24/28/2033HIB VaccinesAged Out No longer eligible based on [...] ImplantedTypeAreaManufacturerDevice IdentifierShelf Expiration DateModel / Serial / LotLeadNito S 60, - [id number] - [id number] Implanted:Qty: 1 on 01/12/2023 by [facility]ock [id number] / [id number] / Lead,Kaykay Beauchamp 53, - [id number] - [id number] Implanted:Qty: 1 on 01/12/2023 by Constantino Bullock [id number] / [id number] / Pacer [address] Dr-T - [id number] - [id number] Implanted:Qty: 1 on 01/12/2023 by Constantino Bullock [facility] Hospital[id number] / [id number] / Superion Ids - 10mm Implanted:Qty: 1 on 11/30/2022 by Jose Angel Mensah [facility]/A: Spine LumbarBoston [id number] 101-9810 / / [id number] Ids - 12mm Implanted:Qty: 1 on 11/30/2022 by Jose Angel [facility]: Spine LumbarBoston [id number] 101-9812 / / [id number] Procedures Procedure NamePriorityDate/TimeAssociated DiagnosisCommentsCARDIAC DEVICE CHECK CHECK - LNBUYQZqjzrni19/02/2025 1:40 PM EDT Adjustment and management of cardiac pacemaker CARDIAC DEVICE CHECK CHECK - OWXSWOYymunfc06/02/2025 12:46 PM EDT Adjustment and management of cardiac pacemaker CARDIAC DEVICE CHECK - REMOTE ALERT - VGQSRPZNAZgnlgxe61/29/2025 12:00 AM EDT CARDIAC DEVICE CHECK - REMOTE - IRQOCRQRYFojkjip07/29/2025 12:00 AM EDT DIAGNOSTIC AUSQRBEYMKUPzmfnyt68/28/2023 2:19 PM EST Abdominal pain, unspecified abdominal [...] Collection TimeReceived Time Narrative Authorizing ProviderResult TypeResult Status[facility] IMPLANTABLE CARDIAC DEVICE PROCEDURESFinal ResultPerforming OrganizationAddressCity/State/ZIP Code Phone Number CPACS * Cardiac device check - Remote alert pacemaker (11/10/2024 12:00 AM EDT) Anatomical RegionLateralityModalityOtherSpecimen (Source)Anatomical Location / LateralityCollection Method / VolumeCollection TimeReceived Time11/10/2024 Narrative Authorizing ProviderResult TypeResult Status[facility] IMPLANTABLE CARDIAC DEVICE PROCEDURESFinal Result * Cardiac device check - Remote pacemaker (11/10/2024 12:00 AM EDT)Anatomical RegionLateralityModalityOtherSpecimen (Source)Anatomical Location / Laterality Collection Method / VolumeCollection TimeReceived Time11/10/2024 Narrative Authorizing ProviderResult TypeResult Status[facility] IMPLANTABLE CARDIAC DEVICE PROCEDURESFinal Result * [...] and Crohn's disease in her mother. Sedation: ??MAC Attending Physician: ??Dr. Dario Calderon Leasing Representative: ??Rachel Prado, Fellow Procedure Details Informed consent [...] Sadler TypeRelation to PatientDate of BirthPhone Billing AddressPersonal/OsoefqMnkp1950 [id number] [address] Care Teams Team MemberRelationshipSpecialtyStart DateEnd Jeremiah Arvizu MD [address] [place] [address] PCP - Vpipcvk30/14/22
--- OUTSIDE RECORDS SUMMARY | 2025-02-09 07:59 | XMS_ITS | CCD ---
Author Organization [facility] Providers Care English Composition Teacher Name Role Phone PHYSICIAN, DEFAULT Unavailable Unavailable PHYSICIAN, DEFAULT Unavailable Unavailable DEBBIE BHATIA Unavailable Unavailable JEOYY ., DR LEWIS Consulting Unavailable HOY ., DR LEWIS Attending Unavailable HOY ., DR LEWIS Primary Care Unavailable HOY ., DR LEWIS Admitting Unavailable ALBIA, DR RAJI Odonnell Consulting Unavailable HOY ., DR LEWIS Consulting Unavailable HOY ., DR LEWIS Attending Unavailable HOY ., DR LEWIS Primary Care Unavailable HOY ., DR LEWIS Admitting Unavailable HOY ., DR LEWIS Primary Care Unavailable HOY ., DR LEWIS Consulting Unavailable HURTADOJAMESCAPO Admitting Unavailable CAPO HURTADO Attending Unavailable HOLula .DR LEWIS Primary Care Unavailable Ambar Maya [...] Unavailable HOY ., DR LEWIS Admitting Unavailable ALBIA, DR RAJI Odonnell Consulting Unavailable Debbie Bhatia Primary Care Physician Debbie Bhatia MD Primary Care Provider [phone] NKANSAH-AMDENICE, ROSETTA Attending Unavail able NKANSAH-AMDENICE, ROSETTA Attending Unavail able NKANSCLAUDIO-AMDENICE, ROSETTA Referring Unavail able NKANSAH-AMANKRA, ROSETTA Admitting Unavail able NKANSAH-ANDREEAANKRA, ROSETTA Attending Unavail able Debbie Bhatia Referring Unavailable NKANSCLAUDIO-KEVANRA, ROSETTA Attending Unavail able Debbie Bhatia MD Primary Care Provider [phone] Kal Molina MD Attending Provider Debbie Bhatia MD Primary Care Provider [phone] MD ROSETTA MENDEZ Admitting Unav ailable MD ROSETTA MENDEZ Attending Unav ailable MD ROSETTA MENDEZ Referring Unav ailable MD ROSETTA MENDEZ Attending Unav ailable MD ROSETTA MENDEZ Attending Unav ailable MD ROSETTA MENDEZ Attending Unav ailMD ROSETTA Bryan Referring Unav ailable MD ROSETTA MENDEZ Admitting Unav ailable Debbie Bhatia MD Primary Care Provider [phone] Sarbjit MD, Lizette Attending Provider [phone] Tracy BELTRÁN, Imjavier Other Provider Sarbjit BELTRÁN, Lizette Attending Provider Giedraitis , Andrius Vytautemily Attending Unavailable Giedraitis , Andrius Vytautas Attending Unavailable Giedraitis , Andrius Vytautas Attending Unavailable Giedraitis , Andrius Vytautas Attending Unavailable Giedraitis , Andrius Vytautas Attending Unavailable SUNDAR, JOSEY Referring Unavailable SUNDAR, JOSEY Referring Unavailable SUNDAR, JOSEY Referring Unavailable SUNDAR, JOSEY Referring Unavailable HOY, DEBBIE Referring Unavailable SHEFALI, RYAN López Referring Unavailable SHEFALI, RYAN López Referring Unavailable SUNDAR, JOSEY Referring Unavailable SUNDAR, JOSEY Attending Unavailable SUNDAR, JOSEY Attending Unavailable SUNDAR, JOSEY Referring Unavailable ELTAHAWY, EHAB Attending Unavailable SUNDAR, JOSEY Referring Unavailable TIMMIS, JOHN H Attending Unavailable DEBBIE BHATIA M Referring Unavailable TIMMIS, JOHN H Attending Unavailable TIMMIS, JOHN H Attending Unavailable TIMMIS, JOHN H Attending Unavailable TIMMIS, JOHN H Attending Unavailable Debbie Bhatia MD Primary Care Provider Tracy BELTRÁN, Imjavier Attending Provider [phone] Tracy BELTRÁN, Imjavier Other Provider Asaad, Imad Admitting Unavailable Asaad, Imad Attending Unavailable Debbie Bhatia Primary Care Unavailable Asaad, Imjavier Attending Unavailable Debbie Bhatia Primary Care Unavailable Asaad, Imad Admitting Unavailable Sarbjit, Lizette Admitting Unavailable Sarbjit, Lizette Attending Unavailable Debbie Bhatia Primary Care Unavailable Allergies Allergy ClassificationReported Allergen(s)Allergy TypeDate of OnsetReaction(s) Facility (10 sources)Penicillins; Translations: [PENICILLINS]Drug allergy (disorder) 76-94-5733JQX, Unknown ReactionThe [facility] RepositoryComment on above:yeast infection (7 sources)Adhesive Tape; Translations: [adhesive tape]Allergy to substance 56-01-1052[facility] (7 sources)Adhesive bandage; Translations: [Adhesive Bandage]Drug allergyWeal (disorder)[facility] [place] (17 sources)PenicillinsDrug Khsihtv00-89-5393[facility] (5 sources)fluticasone; Translations: [fluticasone]Drug Ybbeslw13-02-6824 [facility] (1 source)fluticasone; Translations: [FLUTICASONE PROPIONATE]Drug Allergy 33-49-9807TpbekqmiobMercy Health [facility] (1 source)PenicillinsDrug allergy (disorder)23-31-3156LcnaasssjReg[facility] Repository Medications Current Medications MedicationDrug Class(es)DatesSig (Normalized)Sig (Original)[id number] 200 actuat albuterol 0.09 mg/actuat metered dose inhaler (20 sources)beta2-Adrenergic AgonistStart: 18-92-5757wars 2.5 mg by inhalation every four to six hours as needed for wheezingAlbuterol Sulfate 2.5 mg /3 mL (0.083 %) solution for nebulization Active 2.5 MG INHALATION EVERY 4-6 HOURS as needed for shortness of breath or wheezing January 05, 2024 11:00pm Complies with drugtherapyStart: 07-72-8254fgaf 1 puff(s) by inhalation four times daily as needed for wheezingAlbuterol Sulfate 90 mcg/actuation HFA aerosol inhaler Active 2 PUFF INHALATION Four times daily asneeded for shortness of breath or wheezing January 05, 2024 11:00pm Complies with drug therapyStart: 11-25-2022 take 2.5 mg by inhalation four times dailyalbuterol 0.083% Inh Viviana 3 mL 2.5 mg, 3 mL, NEB, QID Shortness of breath or wheezing, Refill(s) 0 Start Date: 11/25/22 Status: Ordered Repeat number: 1Start: 91-73-3081vnea 2 puff(s) by inhalation every four hoursAlbuterol (Eqv-ProAir HFA) 2 puff(s), Inhalation, q4hr Shortness of breath or wheezing, Refill(s) 0Start Date: 11/25/22 Status: Ordered Repeat number: 1Start: 25-86-6864ezlf 2 puff(s) by inhalation every four hoursAlbuterol (Eqv-ProAir HFA) 2 puff(s), Inhalation, q4hr Shortness of breath or wheezing, Refill(s) 0Start Date: 11/25/22 Status: Orderedtake 2 puff(s) by inhalation every four hoursalbuterol HFA 90 mcg/act inhaler Inhale 2 puffs every 4 (four) hours if needed Activeaspirin 81 mg delayed release oral tablet (20 sources)Platelet Aggregation Inhibitor, Nonsteroidal Anti-inflammatory Drug Start: 69-22-6953Nvwnbnk (Adult Low Dose Aspirin) 81 mg tablet,delayed release (DR/EC) Active 81 MG PO Daily 2023 11:00pm Complies with drug therapyazelastine hydrochloride 0.137 mg/actuat metered dose nasal spray (13 sources)Histamine-1 Receptor AntagonistStart: 97-93-3143Hfaahstgjw HCl 137 MCG/SPRAY solution every 12 (twelve) hours 06/08/2024 Activeazithromycin 250 mg oral tablet (2 sources)Macrolide AntimicrobialStart: 12-05-2024 End: 32-17-4775chvfxgqipaka (Zithromax Z-Maicol) 250 MG tablet Indications: Acute URI Take 2 tabs (500 mg) by mouth today, then 1 tab (250 mg) daily for 4 days. 6 tablet 12/05/2024 12/10/2024 Activebetamethasone 0.5 mg/ml / clotrimazole 10 mg/ml topical cream (13 sources)Azole Antifungal, CorticosteroidStart: 98-61-2771jneplejbsrls- betamethasone (Lotrisone) cream APPLY A SMALL AMOUNT TO AFFECTED AREA TWICE A DAY *USESPARINGLY* 11/02/2024 ActiveStart: 45-20-3329gdvseqsiyqisa-clotrimazole Top 0.05%-1% Crm 15 gram Refill(s) 0 Start Date: 03/31/24 Status: OrderedRepeat number: 1Start: 55-16-0490Nxxdruueyqdo-Betamethasone 1-0.05 % cream Active 1 APPLIC TOPICAL Daily as needed for rash January 05, 2024 11:00pm Complies with drug therapyStart: 10-19-0552Dfzujuyicdok-Betamethasone 1-0.05 % cream Active APPLIC TOPICAL January 06, 2024 12:00ambumetanide 1 mg oral tablet (11 sources)Loop DiureticStart: 24-39-8770Lqpqebifvf 1 mg tablet Active 1 MG PO As Directed January 05, 2024 11:00pm Complies with drug therapycalcium carbonate 600 mg / cholecalciferol 0.01 mg oral tablet (20 sources)Vitamin DStart: 04-21-5080rtyk 2 tablets by mouth in the morning Calcium Carb-Cholecalciferol 600-10 MG-MCG tablet TAKE TWO TABLETS BY MOUTH IN THE MORNING 10/23/2024 ActiveStart: 28-56-8823msfz 2 tablets by mouth in the morningCalcium Carbonate-Vitamin D3 600 mg-10 mcg (400 unit) tablet Active 0 .ROUTE .COMPLEX 180 October 23, 2024 10:49am TAKE TWO TABLETS BY MOUTH IN THE MORNING Complies with drug therapyStart: 01-06-2024 End: 97-36-9767fbkj 2 tablets by mouth once daily in the morningCalcium Carbonate-Vitamin D3 600 mg-10 mcg (400 unit) tablet Discontinued 2 TAB PO Every morning 180 1 June 27, 2024 11:27am October 23, 2024 10:50amStart: 07-20-2023 End: 76-40-1230taaz 2 tablets by mouth in the morningCalcium Carb- Cholecalciferol 600-10 MG-MCG tablet Take 2 tablets by mouth in the morning. 07/20/2023 07/19/2024 Activecarvedilol 12.5 mg oral tablet (13 sources)alpha-Adrenergic Florence, beta-Adrenergic BlockerStart: 10-07-2024 take 1 tablet by mouth twice daily at mealtimecarvedilol (Coreg) 12.5 MG tablet TAKE 1 TABLET BY MOUTH TWICE A DAY WITH FOOD FOR 90 DAYS 10/07/2024 ActiveStart: 33-05-0342bpky 12.5 mg by mouth twice dailyCarvedilol Active 12.5 MG PO Twice daily January 06, 2024 12:00amStart: 06-20-4751Jwiitgbqag 25 mg tablet Active 12.5 MG PO Twice daily January 05, 2024 11:00pm Complies with drugtherapy cephalexin 500 mg oral capsule (10 sources)Cephalosporin AntibacterialStart: 07-13-2024 End: 03-54-3604tzmb 1 capsule by mouth every twelve hourscephalexin (Keflex) 500 MG capsule TAKE 1 CAPSULE BY MOUTH EVERY 12 HOURS FOR 5 DAYS 07/13/202411/14 Discontinued (Therapy completed)ciprofloxacin 3 mg/ml / dexamethasone 1 mg/ml otic suspension (3 sources)Corticosteroid, Quinolone AntimicrobialStart: 08-09-2024 End: 18-43-3844zpslzarknzoxa-dexAMETHasone (CiproDEX) otic suspension Indications: ETD (Eustachian tube dysfunction), right Administer 4 drops into the right ear in the morning and 4 drops before bedtime. Do all this for 7 days. 7.5 mL 08/09/2024 08/16/2024 Activediclofenac potassium 50 mg oral tablet (2 sources)Nonsteroidal Anti-inflammatory DrugStart: 56-90-5482dwdl 1 tablet by mouth once dailydiclofenac potassium 50 mg oral tablet 50 mg = 1 tab(s), Oral, Daily, Refills(s) 0 Start Date: 11/25/22 Status: Ordereddoxycycline monohydrate 100 mg oral capsule (9 sources)Tetracycline-class DrugStart: 60-84-1548ajqqocvaoar (Monodox) 100 MG capsule 08/08/2024 Activefluticasone propionate 0.05 mg/actuat metered dose nasal spray (6 sources)CorticosteroidStart: 05-09-2024 End: 89-98-6504rtxqiwdpmfe (Flonase) 50 MCG/ACT nasal spray Indications: OME (otitis media with effusion), right 2sprays on the right twice daily. Shake gently. Before first use, prime pump. After use, clean tip and replace cap. 48 g 3 05/09/2024 06/20/2024 Discontinued (Side effects)hydrALAZINE hydrochloride 100 mg oral tablet (16 sources)Arteriolar VasodilatorStart: 41-36-1048xqtx 1 tablet by mouth twice dailyHydralazine 100 mg tablet Active 100 MG PO Twice daily October 05, 2024 10:09am Complies with drug therapyStart: 11-25-2022 End: 30-15-2340zvhl 1 tablet by mouth three times dailyHydralazine 100 mg tablet Discontinued 100 MG PO Three times daily January 05, 2024 11:00pm October 05, 2024 10:10amisosorbide dinitrate 10 mg oral tablet (4 sources)Nitrate VasodilatorStart: 66-82-0643mtfn 1 tablet by mouth once daily isosorbide dinitrate 20 mg Tab 20 mg = 1 tab(s), Oral, Daily, Refills(s) 0 Start Date: 11/25/22 Status: OrderedStart: 09-78-1497hrzu 1 tablet by mouth once daily isosorbide dinitrate 10 mg Tab 10 mg = 1 tab(s), Oral, Daily, Refills(s) 0 Start Date: 11/25/22 Status: Orderedlevothyroxine sodium 0.088 mg oral tablet (20 sources)l-ThyroxineStart: 10-43-6078rjcv 1 tablet by mouth once daily Levothyroxine 88 mcg tablet Active 88 MCG PO Daily June 26, 2024 11:00pm Complies with drug therapyStart: 54-44-7489imku 1 capsule by mouth once daily levothyroxine 88 mcg (0.088 mg) oral capsule 88 mcg = 1 cap(s), Oral, Daily, Refills(s) 0, Thyroid Start Date: 06/26/24 Status: Ordered Repeat number: 1Start: 01-06-2024 End: 87-45-9579muyi 1 capsule by mouth once dailyLevothyroxine 100 mcg capsule Discontinued 100 MCG PO Daily January 05, 2024 11:00pm June 27, 2024 10:17amStart: 39-14-2163ubfw 1 tablet by mouth once dailylevothyroxine 100 mcg (0.1 mg) Tab 100 mcg = 1 tab(s), Oral, Daily, Refills(s) 0 Start Date: 11/25/22 Status: Orderedtake 1 tablet by mouth before mealtimelevothyroxine (Synthroid, Levoxyl) 100 MCG tablet Take 100 mcg by mouth in the morning. Take beforemeals. Activeliothyronine sodium 0.025 mg oral tablet (20 sources)l-TriiodothyronineStart: 27-98-9563stpt 1 tablet by mouth once daily Liothyronine 25 mcg tablet Active 37.5 MCG PO Daily January 05, 2024 11:00pm Complies with drug therapyStart: 54-97-6643oxxk 1 tablet by mouth once daily Liothyronine 25 mcg tablet Active 37.5 MCG PO Daily January 06, 2024 12:00am Start: 30-18-3536lazi 37.5 ug by mouth once dailyLiothyronine Active 37.5 MCG PO Daily January 06, 2024 12:00amStart: 61-27-4773Sixzfzs 25 mcg Tab 37.5 mcg = 1.5 tab(s), Oral, Daily, Refills(s) 0 Start Date: 11/25/22 Status: Ordered Repeat number: 1Start: 36-92-2652ozvn 1 tablet by mouth once dailyCytomel 25 mcg Tab 25 mcg = 1 tab(s), Oral, Daily, Refills(s) 0 Start Date: 11/25/22 Status: Ordered take 1.5 tablets by mouth in the morningliothyronine (Cytomel) 25 MCG tablet Take 1.5 tablets by mouth in the morning. Activelisinopril 10 mg oral tablet (20 sources)Angiotensin Converting Enzyme InhibitorStart: 55-14-1486ogpv 1 tablet by mouth once dailyLisinopril 10 mg tablet Active 10 MG PO Daily January 05, 2024 11:00pm Complies with drug therapyStart: 81-97-5393mobx 1 tablet by mouth once dailylisinopril 5 mg Tab 5 mg = 1 tab(s), Oral, Daily, Refills(s) 0 Start Date: 11/25/22 Status: Orderedlovastatin 20 mg oral tablet (20 sources)HMG-CoA Reductase InhibitorStart: 32-86-0672etgg 1 tablet by mouth once dailyLovastatin 20 mg tablet Active 20 MG PO Daily January 05, 2024 11:00pm Complies with drug therapymagnesium oxide 400 mg oral tablet (7 sources)Start: 06-34-3212bmin 1 tablet by mouth once dailyMagnesium Oxide 400 mg (241.3 mg magnesium) tablet Active 0 .ROUTE .COMPLEX 90 October 23, 2024 1 0:51am TAKE 1 TABLET BY MOUTH DAILY Complies with drug therapyStart: 06-27-2024 End: 87-38-3556sdjm 1 tablet by mouth once dailyMagnesium Oxide 400 mg magnesium tablet Discontinued 400 MG PO Daily 90 June 26, 2024 11:00pm October 23, 2024 10:51amMagnesium Sulfate (2 sources)Start: 70-99-4417acnusvukz sulfate Refills(s) 0 Start Date: 07/13/24 Status: Ordered Repeat number: 1ondansetron 4 mg disintegrating oral tablet (2 sources)Serotonin-3 Receptor AntagonistStart: 82-42-6368qlhk 1 tablet by mouth every six hours as needed for nauseaondansetron 4 mg Dis Tab 4 mg = 1 tab(s), Oral, q6hr, PRN Nausea/Vomiting, Refills(s) 0 Start Date:11/25/22 Status: Orderedpantoprazole 40 mg delayed release oral tablet (16 sources)Proton Pump InhibitorStart: 03-80-3238tpog 1 tablet by mouth twice dailyPantoprazole 40 mg tablet,delayed release (DR/EC) Active 40 MG PO Twice daily June 27, 2024 10:17am Complies with drug therapyStart: 01-06-2024 End: 46-79-8823fwks 1 tablet by mouth once dailyPantoprazole 40 mg tablet,delayed release (DR/EC) Discontinued 40 MG PO Daily January 05, 2024 11:00pm June 27, 2024 10:19amphenazopyridine hydrochloride 100 mg oral tablet (1 source)Start: 07-13-2024 End: 75-95-7068eylb 1 tablet by mouth three times dailyPyridium 100 mg Tab 100 mg = 1 tab(s), Oral, TID, X 3 day(s), # 9 tab(s), Refills(s) 0, Pharmacy: [id number], 160.1, cm, 06/26/24 14:41:00 EDT, Height/Length Dosing, 136.8, kg, 06/26/24 14:41:00 EDT, Weight Dosing Start Date: 07/13/24 Stop Date: 07/16/24 Status: Ordered Quantity: 9.0 Unit: tab(s) Repeat number: 1 Completed/Discontinued Medications MedicationDrug Class(es)DatesSig (Normalized)Sig (Original)citric acid 75 mg/ml / magnesium oxide 21.9 mg/ml / picosulfate sodium 0.0625 mg/ml oral solution (6 sources)Calculi Dissolution Agent, Anti-coagulantStart: 01-06-2024 End: 94-97-5420Xkk Picosulf-Mag Ox-Citric Ac (Clenpiq) 10 mg-3.5 gram- 12 gram/160 mL solution Discontinued ML PO Twice daily January 05, 2024 11:00pm February 14, 2024 11:05am FreeTextSiml at 3pm, 160ml at 9pm the day prior to colonoscopy Orally BID; Note: Source Status: Start; Refills: 0; Qty: 1 Box; Provider: Musa Bearden Hhyoscyamine sulfate 0.125 mg oral tablet (6 sources)Start: 01-06-2024 End: 01-67-5695utpj 1 tablet by mouth four times dailyHyoscyamine Sulfate 0.125 mg tablet Discontinued 0.125 MG PO Four times daily January 05, 2024 11:00pm February 14, 2024 11:04ampolyethylene glycol 3350 919396 mg / potassium chloride 2970 mg / sodium bicarbonate 6740 mg / sodium chloride 5860 mg / sodium sulfate 69630 mg powder for oral solution (7 sources)Osmotic LaxativeStart: 07-24-2024 End: 79-15-4553Kdu 3350-Electrolytes (Golytely) 236-22.74-6.74 -5.86 gram recon soln Discontinued 240 ML PO Q10M 4000 1 0 July 23, 2024 11:00pm January 22, 2025 7:26am until fecal effluent is clearStart: 06-28-2024 End: 01-45-3344Aos 3350-Electrolytes (Golytely) 236-22.74-6.74 -5.86 gram recon soln Discontinued 240 ML PO Q10M 4000 1 0 June 27, 2024 11:00pm July 19, 2024 10:28am follow instructions given at officesodium polystyrene sulfonate 79172 mg powder for oral suspension (14 sources)Start: 06-27-2024 End: 03-92-5086difx 15 g by mouth three times weeklySodium Polystyrene Sulfonate powder Discontinued 15 GM PO 3 Times a week 150 June 27, 2024 11:56am June 27, 2024 1:04pmStart: 74-53-5194rris 15 g by mouth three times weeklySodium Polystyrene Sulfonate powder Active 15 GM PO 3 Times a week 150 June 27, 2024 11:56amStart: 02-14-2024 End: 75-67-0438nawj 15 g by mouth three times weeklySodium Polystyrene Sulfonate powder Discontinued 15 GM PO 3 Times a week 150 6 June 27, 2024 10:56am June 27, 2024 12:04pmtraMADol hydrochloride 50 mg oral tablet (20 sources)Opioid AgonistStart: 08-09-2023 End: 90-79-8673uktj 1 tablet by mouth twice daily as neededTramadol 50 mg tablet Discontinued 50 MG PO Twice daily as needed January 05, 2024 11:00pm June 132024 10:19am Problems Active Problems Problem ClassificationProblemDateDocumented DateEpisodic/ChronicCardiac dysrhythmias (20 sources)Supraventricular tachycardia; Translations: [Atrial fibrillation] Onset: 18-54-7811TyiqxkzEvlajcw kidney disease (20 sources)Chronic kidney disease stage 4; Translations: [Chronic kidney disease, stage 4 (severe)]Onset: 322227-94-6577BtwqzsgByrqfua obstructive pulmonary disease and bronchiectasis (20 sources)Chronic obstructive lung disease; Translations: [Chronic obstructive pulmonary disease, unspecified]Onset: 178327-84-3239KnjcwvdQaslqmcpwa disorders (13 sources)Cardiac pacemaker in situ; Translations: [Presence of cardiac pacemaker]Onset: 158828-39-6337LuthkoiFsnjjcshfl heart failure; nonhypertensive (3 sources)Acute combined systolic (congestive) and diastolic (congestive) heart failure; Translations: [Unspecified diastolic (congestive) heart failure]Onset: 32-56-5303XgsrdbwXukvnfdb atherosclerosis and other heart disease (20 sources)Coronary arteriosclerosis; Translations: [Atherosclerotic heart disease of wiyot coronary artery without angina pectoris]Onset: 05-09-2024 51-58-6140HmtwbsmTncbcllndv and other anemia (1 source)Anemia in chronic kidney disease; Translations: [Anemia in chronic kidney disease]Onset: 73-48-0751RsfukcnDxlrwdtbu of lipid metabolism (20 sources)Hyperlipidemia, unspecified; Translations: [Pure hypercholesterolemia, unspecified]Onset: 462243-43-4151XtqwkzbMkbgbjhyk hypertension (20 sources)Hypertensive disorder; Translations: [Essential hypertension]Onset: 596231-59-6104DcgougaNkryvazxqtcij symptoms and ill-defined conditions (20 sources)Stress incontinence (female) (male); Translations: [Female stress incontinence]Onset: 57-86-7054SmksdosVqhzddxq; including migraine (2 sources)Migraine, unspecified, not intractable, without status migrainosus; Translations: [Migraine, unspecified, not intractable, without status migrainosus]Onset: 15-27-3021TcejkviBfjcbvej; including migraine (2 sources)Headache; Translations: [Nonintractable headache, unspecified chronicity pattern, unspecified headache type]45-56-4035WmpglggeRqbiyorlxbbx with complications and secondary hypertension (18 sources)Hypertensive heart disease with heart failure; Translations: [Chronic kidney disease due to hypertension]Onset: hronic Osteoporosis (4 sources)Age-related osteoporosis without current pathological fracture; Translations: [AGE-REL OSTEOPOR W/OCURR PATH FX]Onset: 55-36-8147MvpdojjAqova diseases of bladder and urethra (7 sources)Urethral intrinsic sphincter deficiency; Translations: [Intrinsic sphincter deficiency (ISD)]Onset: 01-03-3855JfxdygqcIlwqc diseases of kidney and ureters (20 sources)Secondary hyperparathyroidism; Translations: [Secondary hyperparathyroidism of renal origin]Onset: 010975-85-8044VkximraSsaxe diseases of kidney and ureters (4 sources)Secondary hyperparathyroidism of renal origin; Translations: [Secondary hyperparathyroidism (of renal origin)]Onset: ChronicOther diseases of veins and lymphatics (1 source)Lymphedema, not elsewhere classified; Translations: [LYMPHEDEMA NOT ELSEWHERE CLASSIFIED]Onset: 97-75-5094VfbihbtXwmia ear and sense organ disorders (2 sources)Mixed conductive and sensorineural hearing loss, unilateral, right ear, with unrestricted hearing on the contralateral side; Translations: [Mixed hearing loss, unilateral]44-91-2355CjqxhfgTbbor ear and sense organ disorders (2 sources)Chronic right myringitis; Translations: [Chronic myringitis, right ear]03-50-3579PouryniVhuyl ear and sense organ disorders (2 sources)Cerebrospinal fluid otorrhea; Translations: [CSF otorrhea]08-09-2024 EpisodicOther nutritional; endocrine; and metabolic disorders (20 sources)Morbid obesity; Translations: [Morbid (severe) obesity due to excess calories]Onset: 262778-98-3208AjbuiblGmkrj nutritional; endocrine; and metabolic disorders (7 sources)Hypomagnesemia; Translations: [Hypomagnesemia]85-39-0786JwdzxqxWjwwp nutritional; endocrine; and metabolic disorders (3 sources)Hypomagnesemia; Translations: [Disorders of magnesium metabolism] Onset: 448147-24-4693BddoovkQlpcw nutritional; endocrine; and metabolic disorders (2 sources)Body mass index 40+ - severely obese; Translations: [Body mass index (BMI) 45.0-49.9, adult]Onset: 891612-49-4100DoebdteApjyk nutritional; endocrine; and metabolic disorders (7 sources)Hyperuricemia; Translations: [Hyperuricemia without signs of inflammatory arthritis and tophaceous disease]64-65-8275MuladafxBdnhr screening for suspected conditions (not mental disorders or infectious disease) (5 sources)Encounter for screening, unspecified; Translations: [Encounter for screening for malignant neoplasmof colon]Onset: 68-19-7117PczwrrlcPauba upper respiratory infections (2 sources)Acute upper respiratory infection; Translations: [Acute upper respiratory infection, unspecified]96-73-0837JzshxzzuCoxfpm media and related conditions (2 sources)Chronic right mastoiditis; Translations: [Chronic mastoiditis, right ear]72-76-5875NrfybptQrsohk media and related conditions (12 sources)Otitis media; Translations: [Unspecified nonsuppurative otitis media, right ear]92-81-0383RvsiscnbMaswqtebn heart disease (20 sources)Pulmonary hypertension; Translations: [Secondary pulmonary hypertension]Onset: 534777-91-1873BldnhyjUtudpcmn codes; unclassified (18 sources)Obstructive sleep apnea syndrome; Translations: [Obstructive sleep apnea (adult) (pediatric)]Onset: 05-87-645068609158-79-5523GztwvnaXhfabsifx and history of mental health and substance abuse codes (5 sources)Tobacco use and exposure - oerflgo08-83-5897RryxjmbLqxhyuulwna; intervertebral disc disorders; other back problems (18 sources)Lumbosacral spondylosis without myelopathy; Translations: [Spondylosis without myelopathy or radiculopathy, lumbosacral region]Onset: 350296-12-2747YmdrwmaWyeszjx disorders (20 sources)Hypothyroidism, unspecified; Translations: [Hypothyroidism]Onset: 513424-23-6200MgruhrkMpmqichinuzz (3 sources)CONTACT W/AND (SUSP) EXPOS COVID-19; Translations: [CONTACT W/AND (SUSP) EXPOS COVID-19]Onset: 75-98-3457Bpzfiafwqblc (1 source)COUGH, UNSPECIFIED; Translations: [COUGH, UNSPECIFIED]Onset: 43-66-8915Fnbngdengmxz (5 sources)Long-term current use of opixwta73-04-5916Jfvrlaldkudb (1 source)Vertebrogenic low back pain; Translations: [Vertebrogenic low back pain]Onset: 11-23-2023 Past or Other Problems Problem ClassificationProblemDateDocumented DateEpisodic/ChronicAbdominal pain (20 sources)Lower abdominal pain; Translations: [Lower abdominal pain, unspecified]Onset: 401099-73-6286BafbcwniDokxrqbw of urinary tract (20 sources)Kidney stone; Translations: [Calculus of kidney]Onset: 03-31-2024 EpisodicCardiac dysrhythmias (20 sources)Palpitations; Translations: [Bradycardia]Onset: 09-79-8560Bhrdyajc Conditions associated with dizziness or vertigo (18 sources)Lightheadedness; Translations: [Dizziness and giddiness]Onset: 930723-36-8552WjuohwxdTuyubpjklh and other anemia (1 source)Anemia, unspecified; Translations: [ANEMIA UNSPECIFIED]Onset: 11-28-7217PpoxdlbnJ Codes: Cut/pierceb (1 source)Contact with other sharp object(s), not elsewhere classified, initial encounter; Translations: [CNTC OTH SHRP OB NOT ELSW CLASS INI]Onset: 08-14-2021 EpisodicFluid and electrolyte disorders (20 sources)Hyperkalemia; Translations: [Hyperkalemia]Onset: 01-26-2024 25-58-9743GwiijvagFwjdyuxzeeognhxp hemorrhage (1 source)Hemorrhage of anus and rectum; Translations: [Hemorrhage of anus and rectum]Onset: 26-15-2208NbqpsldeBnfbqmk and fatigue (18 sources)Fatigue; Translations: [Other fatigue]Onset: EpisodicNonspecific chest pain (19 sources)Chest pain, unspecified; Translations: [Chest pain]Onset: 07-27-2016 68-50-0708TytenguePbbp wounds of extremities (4 sources)Laceration without foreign body, right lower leg, initial encounter; Translations: [LACERATION W/O FB RT LOW LEG INIT]Onset: 38-07-8716MgpyulamLlspi aftercare (1 source)Other chcf (current) drug therapy; 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]Onset: 72-16-7441BvgdtbloKnrge aftercare (20 sources)Long-term current use of aspirin; 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]Onset: 62-57-5493BwdugnjeYfsjv and unspecified benign neoplasm (1 source)Personal history of colonic polyps; Translations: [PERSONAL HISTORY OF COLONIC POLYPS]Onset: 67-69-4862GuzccpvkXmyso and unspecified benign neoplasm (20 sources)History of polyp of colon; Translations: [History of colon polyps] Onset: 961293-13-1001GhzzuajlIvtxt circulatory disease (1 source)Other specified symptoms and signs involving the circulatory and respiratory systems; Translations:[OTH SPEC SX SIGNS INVLV CIRC RS]Onset: 41-29-8016KolzgzvzKyuhq diseases of veins and lymphatics (1 source)Venous insufficiency (chronic) (peripheral); Translations: [VENOUS INSUFF CHRONIC PERIPHERAL]Onset: 07-34-9340RsvcowxaPkkwd lower respiratory disease (4 sources)Shortness of breath; Translations: [SHORTNESS OF BREATH]Onset: 57-40-8520WjotakzoKkicn lower respiratory disease (20 sources)Multiple nodules of lung; Translations: [Other nonspecific abnormal finding of lung field]Onset: 021768-26-9689DcbsiwwtKfqnf lower respiratory disease (18 sources)Dyspnea; Translations: [Dyspnea, unspecified]Onset: 07-27-2016 03-53-8510PagdqorcUifob nutritional; endocrine; and metabolic disorders (3 sources)Hyperuricemia without signs of inflammatory arthritis and tophaceous disease; Translations: [Other abnormal blood chemistry]Onset: 09-22-2024 63-99-4235UhomslpeIsjwuote codes; unclassified (4 sources)Edema, unspecified; Translations: [EDEMA UNSPECIFIED]Onset: 01-43-8153LoklvuawWzlnhafn codes; unclassified (1 source)Localized edema; Translations: [LOCALIZED EDEMA]Onset: 01-19-2022 EpisodicResidual codes; unclassified (1 source)Acquired absence of both cervix and uterus; Translations: [ACQUIRED ABSENCE BOTH CERVIX AND UTERUS]Onset: 59-00-0997ZrjfekhdWolvbyjl codes; unclassified (20 sources)History of operative procedure on lumbar spinal structure; Translations: [Other specified postprocedural states]Onset: 496608-72-2478 EpisodicResidual codes; unclassified (18 sources)Edema; Translations: [Edema, unspecified]Onset: EpisodicScreening and history of mental health and substance abuse codes (20 sources)Personal history of nicotine dependence; Translations: [H/O: Disorder]Onset: 28-98-8572MazlqpowIzaychuhcbb; intervertebral disc disorders; other back problems (20 sources)Spinal stenosis, lumbar region with neurogenic claudication; Translations: [Radiculopathy, lumbar region]Onset: 64-76-9585Mtaedear Unclassified (1 source)CONTACT W/AND (SUSP) EXPOS COVID-19; Translations: [CONTACT W/AND (SUSP) EXPOS COVID-19]Onset: 30-04-0067Jlwnsibxxwff (1 source)Vertebrogenic low back pain; Translations: [Vertebrogenic low back pain]Onset: 11-23-2023 Results Test NameValueInterpretationReference RangeFacilityLon 01-22-2025L Specimen: [id number] Received: 01/22/25 Status: YUMI Russell Num: [id number] Spec Type: Surgical Subm Dr: Kal Molina MD Tissues: A Colon Biopsy (ASCENDING POLYP) B Colon Biopsy (TRANSVERSE POLYP) C Colon Biopsy (DESCENDING POLYP) Procedures: Komal/Micro L4/3 Age/ Patient Sex Location Account Attending Physician Vero Sadler 74/F [id number] Kal Molina MD SPEC NUM: [id number] RECD: 01/22/25 STATUS: YUMI RUSSELL NUM: [id number] BUDDY: 01/22/[address]: Kal Molina MD ENTERED: 01/22/[address] [facility] [address]: SPEC TYPE: Surgical DEPT: S ENTERED BY: [id number] RECV BY: [id number] ORDERED: HE/12, Gross/Micro L4/3 ORDERED: HE/12, Gross/Micro L4/3 A. Colon, ascending polyp, biopsy: ? Colonic mucosa with no significant pathologic change. B. Colon, transverse polyp, biopsy: ?Tubular adenoma. C. Colon, descending polyp, biopsy: ? Colonic mucosa with no significant pathologic change. Addendum Signed (signature on file) Vladimir Rivera MD 01/24/25 1143 Pathological Diagnosis A. Colon, ascending polyp, biopsy: ? Colonic mucosa with no significant pathologic change. B. Colon, transverse polyp, biopsy: ? Colonic mucosa with lymphoid aggregate and hyperplastic changes. C. Colon, descending polyp, biopsy: ? Colonic mucosa with no significant pathologic change. Specimen: [id number] Received: 01/22/25 Status: YUMI Eduardo Num: [id number] Spec Type: Surgical Subm Dr: Kal Molina MD Tissues: A Colon Biopsy (ASCENDING POLYP) B Colon Biopsy (TRANSVERSE POLYP) C Colon Biopsy (DESCENDING POLYP) Procedures: HE/12, Gross/Micro L4/3 Patient: Vero Sadler [id number] (Continued) Specimen: [id number] Received: 01/22/25 (Continued) Signed (signature on file) Vladimir Rivera MD 01/24/25906 Specimen: [id number] Received: 01/22/25 Status: YUMI Russell Num: [id number] Spec Type: Surgical Subm Dr: Kal Molina MD Tissues: A Colon Biopsy (ASCENDING POLYP) B Colon Biopsy (TRANSVERSE POLYP) C Colon Biopsy (DESCENDING POLYP) Procedures: GRETA/Jagruti, Gross/Jesús L4/3 Patient: Vero Sadler [id number] (Continued) Specimen: [id number] Received: 01/22/25 (Continued) Clinical Information History of colon polyps Gross Description Part A is received in formalin labeled with the patient's date of , and [place], ascending polyp is a wihtehead-moore, focally erythematous, friable, 0.3 cm in greatest dimension polypoid fragment. The specimen is entirely submitted in a single cassette. (1, ns, F67- 3162 A) Part B is received in formalin labeled with the patient's date of , and [place], transverse polyp is a whitehead-moore, focally erythematous, friable, 0.2 cm in greatest dimension polypoid fragment. The specimen is entirely submitted in a single cassette. (1, ns, M55- 0858 B) Part C is received in formalin labeled with the patient's date of , and [place], descending polyp are 2 whitehead-moore, focally erythematous, friable, 0.2 and 0.3 cm in greatest dimension polypoid fragments. The specimen is entirely submitted in a single cassette. (1, ns, [id number] C) CPT Codes 94193 x 3 Specimen: [id number] Received: 01/22/25 Status: YUMI Russell Num: [id number] Spec Type: Surgical Subm Dr: Kal Molina MD Tissues: A Colon Biopsy (ASCENDING POLYP) B Colon Biopsy (TRANSVERSE POLYP) C Colon Biopsy (DESCENDING POLYP) Procedures: , Gross/Micro L4/3 Patient: Vero Sadler [id number] (Continued) (more content not included)...[facility] Onlyon 36-62-0695Hfmimh [id number] Vero Sadler 1950 F Date Provider Department [facility] 11/10/2024 JOSEY ARNOLD [facility] Family History Problem Relation Age of Onset Other Mother Coronary artery disease Mother Other Mother Other Mother Other Father Hypertension Father Hyperlipidemia Father Other Daughter Family Status - Relation Status Age at Mother Father DaughterNormalUniversity Morrow County HospitalOffice [facility]2024 Follow-up [id number] Vero Sadler 1950 F Date Provider Department [facility] 10/24/2024 JOSEY ARNOLD [facility] Family History Problem Relation Age of Onset Other Mother Coronary artery disease Mother Other Mother Other Mother Other Father Hypertension Father Hyperlipidemia Father Other Daughter Family Status - Relation Status Age at Mother Father Daughter Level of Service:32230 [place] OFFICE/OUTPATIENT ESTABLISHED LOW MDM 20 [facility] HospitalAlbum[facility] [Mass/volume] in Serum or Plasma by Bromocresol green (BCG) dye binding methoOrdered By: Lizette Schaffer on 09-22-2024 Albumin BCG dye [Mass/Vol]3.8 g/dL3.5-5.7FOhioHealth Grady Memorial Hospital Appearance of UrineOrdered By: Lizette Schaffer on 76-64-9219Vcnjlnoiiq (U)Cloudy Critically abnormalCleWooster Community HospitalComment on above:Order Comment: Name Collection Type:: Clean-Voided MidstreamPerformed By: #### SPE, JOSE,URINE #### [facility] , #### ADDONUAPLUS, CUU, PROCRERAT #### [facility] [address] [place] [address] USABacteria [Presence] in Urine by AutomatedOrdered By: Lizette Schaffer on 50-79-2645Xfsewjgb Auto Ql (U)1+ [HPF]HighNone SeenRegency Hospital ToledoBilirubin Test strip Ql (U)Ordered By: Lizette Schaffer on 09-22-2024 Bilirubin Ql (U)NegativeNegativeRegency Hospital ToledoCalcium [Mass/volume] in Serum or PlasmaOrdered By: Lizette Schaffer on 68-90-9102Tdtshow [Mass/Vol]8.9 mg/dLNormal8.6-10.3FOhioHealth Grady Memorial HospitalComment on above:Performed By: #### JOSE SERUM, SPE W INTERPRET, KAPPA #### [facility] , #### FE and TIBC, MG, TAYLOR, RENAL, PTH, [id number], CBCNO, URIC #### [facility] [address] [place] [address] USACarbon dioxide, total [Moles/volume] in Serum or Plasma Ordered By: Lizette Schaffer on 27-92-9528IW1 [Moles/Vol]24.4 mmol/OYispcc13.0-31.0 [facility] Hospital ToledoComment on above:Performed By: #### JOSE SERUM, SPE W INTERPRET, KAPPA #### [facility] , #### FE and TIBC, MG, TAYLOR, RENAL, PTH, [id number], CBCNO, URIC #### [facility] [address] [place] [id number] USAChloride [Moles/volume] in Serum or PlasmaOrdered By: Lizette Schaffer on 87-07-9809Ngcqorom [Moles/Vol]109 mmol/XNkha25-207RrzlzaiofRegency Hospital ToledoComment on above:Performed By: #### JOSE SERUM, SPE W INTERPRET, KAPPA #### [facility] , #### FE and TIBC, MG, TAYLOR, RENAL, PTH, [id number], CBCNO, URIC #### [place] [id number] USAColor of Urine by AutoOrdered By: Lizette Schaffer on 14-52-0016Qmshe (U)YellowNormalYHolmes County Joel Pomerene Memorial HospitalComment on above:Order Comment: Name Collection Type:: Clean-Voided MidstreamPerformed By: #### SPE, JOSE,URINE #### [facility] , #### ADDONUAPLUS, CUU, PROCRERAT #### [facility] [address] [place], [place] [address] USACreatinine [Mass/volume] in Serum or PlasmaOrdered By: Lizette Schaffer on 60-30-0261Yarykcvxfd [Mass/Vol]2.25 mg/dLHigh0.60-1.20[facility] Hospital ToledoComment on above:Performed By: #### JOSE SERUM, SPE W INTERPRET, KAPPA #### [facility] , #### FE and TIBC, MG, TAYLOR, RENAL, PTH, [id number], CBCNO, URIC #### [place] [address] USACreatinine [Mass/volume] in UrineOrdered By: Lizette Schaffer on 76-48-6643Qxhwwpiqie (U) [Mass/Vol]153.00 mg/dLRegency Hospital ToledoComment on above:No reference range establishedDipstick and Microscopicon 52-98-5285Lwyciuip,Urine1+ [HPF]NormalNone SeenThe [facility] Comment on above:Order Comment: Name Collection Type:: Clean-Voided Midstream Performed By: #### SPE, JOSE,URINE #### [facility] , #### ADDONUAPLUS, CUU, PROCRERAT #### [facility] [address] [place] [address] USABilirubin,UrineNegativeNormalNegativeHca Florida Aventura Hospital Physician GroupComment on above:Order Comment: Name Collection Type:: Clean- Voided MidstreamPerformed By: #### SPE, JOSE,URINE #### [facility] , #### ADDONUAPLUS, CUU, PROCRERAT #### [facility] [address] [place] [address] USAGlucose Ql (U)NormalNormalNormalThe [facility] Physician GroupComment on above:Order Comment: Name Collection Type:: Clean-Voided MidstreamPerformed By: #### SPE, JOSE,URINE #### [facility] , #### ADDONUAPLUS, CUU, PROCRERAT #### [facility] [address] [place] [address] USAHyaline Casts,Valxk0-4Tljjri1-9Xek [facility] Physician GroupComment on above:Order Comment: Name Collection Type:: Clean-Voided MidstreamPerformed By: #### SPE, JOSE,URINE #### [facility] , #### ADDONUAPLUS, CUU, PROCRERAT #### [facility] [address] [place] [address] USAMucus,UrineRareNormalThe [facility] Physician GroupComment on above:Order Comment: Name Collection Type:: Clean-Voided MidstreamResult Comment: PERFORMED BY: [place] [address] PATHOLOGIST AT RISK PARAPROFESSIONAL CASSIDY CASIANO M.D.Performed By: #### SPE, JOSE,URINE #### [facility] , #### ADDONUAPLUS, CUU, PROCRERAT #### [place] [address] USANitrite,UrineNegativeNormalNegativeThe [facility] Physician GroupComment on above:Order Comment: Name Collection Type:: Clean-Voided MidstreamPerformed By: #### SPE, JOSE,URINE #### [facility] , #### ADDONUAPLUS, CUU, PROCRERAT #### [place] [address] USAOccult Blood,UrineNegativeNormalNegativeThe [facility] Physician GroupComment on above:Order Comment: Name Collection Type:: Clean- Voided MidstreamPerformed By: #### SPE, JOSE,URINE #### [facility] , #### ADDONUAPLUS, CUU, PROCRERAT #### [place] [address] USAProtein,UrineNegativeNormalNegativeThe [facility] Physician GroupComment on above:Order Comment: Name Collection Type:: Clean-Voided MidstreamPerformed By: #### SPE, JOSE,URINE #### [facility] , #### ADDONUAPLUS, CUU, PROCRERAT #### [place] [address] USARBC,Gdmoq7-3Zcdifj0-7Jjt [facility] Physician GroupComment on above:Order Comment: Name Collection Type:: Clean-Voided MidstreamPerformed By: #### SPE, JOSE,URINE #### [facility] , #### ADDONUAPLUS, CUU, PROCRERAT #### [place] [address] USASpecificy Ingalls,Urine1.327Ntcjid2.001-1.030The [facility] Physician GroupComment on above:Order Comment: Name Collection Type:: Clean- Voided MidstreamPerformed By: #### SPE, JOSE,URINE #### [facility] , #### ADDONUAPLUS, CUU, PROCRERAT #### [facility] [address] [place] [address] USASquamous Epithelial Cell,Gbztn3-5Daxesj2-9Jiu [facility] Physician GroupComment on above:Order Comment: Name Collection Type:: Clean- Voided MidstreamPerformed By: #### SPE, JOSE,URINE #### [facility] , #### ADDONUAPLUS, CUU, PROCRERAT #### [place] [address] USAUrobilinogen,UrineNormalNormalNormalThe [facility] Physician GroupComment on above:Order Comment: Name Collection Type:: Clean- Voided MidstreamPerformed By: #### SPE, JOSE,URINE #### [facility] , #### ADDONUAPLUS, CUU, PROCRERAT #### [facility] [address] [place] [address] USAWBC,Szvoi2-1Ujfbwn7-1Men [facility] Physician GroupComment on above:Order Comment: Name Collection Type:: Clean-Voided MidstreamPerformed By: #### SPE, JOSE,URINE #### [facility] , #### ADDONUAPLUS, CUU, PROCRERAT #### [facility] [address] [place] [address] USAEpithelial cells.squamous [#/area] in Urine sediment by Automated countOrdered By: Lizette Schaffer on 30-36-4286Jgypzkgmlb cells.squamous Auto (Urine sed) [#/Area]5-9 [HPF]High0-2FOhioHealth Grady Memorial Hospital Erythrocyte distribution width [Ratio] by Automated countOrdered By: Lizette Schaffer on 10-29-2844Otlyriogasd distribution width (RBC) [Ratio]15.0 %Hhuwkp80.9-15.3 [facility] ToledoComment on above:Performed By: #### JOSE SERUM, SPE W INTERPRET, KAPPA #### [facility] , #### FE and TIBC, MG, TAYLOR, RENAL, PTH, [id number], CBCNO, URIC #### [facility] [address] [place] [id number] USAErythrocytes [#/area] in Urine sediment by Automated count Ordered By: Lizette Schaffer on 98-99-6737GYQ Auto (Urine sed) [#/Area]1-2 [HPF]0-4 [facility] Hospital ToledoErythrocytes [#/volume] in Blood by Automated countOrdered By: Lizette Schaffer on 43-65-7393IDA (Bld) [#/Vol]4.26 10*6/uLNormal 3.60-5.00[facility] Hospital ToledoComment on above:Performed By: #### JOSE SERUM, SPE W INTERPRET, KAPPA #### [facility] , #### FE and TIBC, MG, TAYLOR, RENAL, PTH, [id number], CBCNO, URIC #### [facility] [address] [place] [address] USAFerritin [Mass/volume] in Serum or PlasmaOrdered By: Lizette Schaffer on 37-52-5052Plowdwui [Mass/Vol]73.7 ng/dEQsybgv63.0-306.8Reg[facility] Hospital ToledoComment on above:Performed By: #### SPE, JOSE,URINE #### [facility] , #### ADDONUAPLUS, CUU, PROCRERAT #### [facility] [address] [place] [id number] USAFree K+L LT Chains, Qn, Son 76-21-4479Tgbv Briar Light Chains, S46.0 mg/LNormal3.3-19.4The [facility] Physician GroupComment on above: Performed By: #### SPE, JOSE,URINE #### [facility] , #### ADDONUAPLUS, CUU, PROCRERAT #### [facility] [address] [place] [address] USAFree Lambda Light Chains, S25.9 mg/LNormal5.7-26.3The [facility] Physician GroupComment on above:Performed By: #### SPE, JOSE,URINE #### [facility] , #### ADDONUAPLUS, CUU, PROCRERAT #### [facility] [address] [place] [address] USAKappa/Lambda Ratio, S1.60Aulesu8.26-1.65The [facility] Physician GroupComment on above:Result Comment: Performed at: - [facility] [id number] [employer] Experience Strategy: Jozef Medina PhD, Phone: [phone] PERFORMED BY: [place] [address] PATHOLOGIST AT RISK PARAPROFESSIONAL CASSIDY CASIANO M.D.Performed By: #### SPE, JOSE,URINE #### [facility] , #### ADDONUAPLUS, CUU, PROCRERAT #### [facility] [address] [place] [address] USAGlucose [Mass/volume] in Serum or PlasmaOrdered By: Lizette Schaffer on 58-06-5532Jgjokvi [Mass/Vol]95 mg/oWWjunqs31-410BpsphekciRegency Hospital ToledoComment on above:ADA recommended reference rangeRandom Glucose Reference [...] FE and TIBC, MG, TAYLOR, RENAL, PTH, [id number], CBCNO, URIC #### [facility] [address] [place] [address] USAGlucose [Mass/volume] in Urine by Test stripOrdered By: Lizette Schaffer on 37-04-6831Mirumim Test strip (U) [Mass/Vol]Normal mg/dLNormal [facility] ToledoHematocrit [Volume Fraction] of Blood by Automated countOrdered By: Lizette Schaffer on 20-90-3808Yuxcjehbuw (Bld) [Volume fraction]37.9 %Detxgo01.0-46.4FOhioHealth Grady Memorial HospitalComment on above: Performed By: #### JOSE SERUM, SPE W INTERPRET, KAPPA #### [facility] , #### FE and TIBC, MG, TAYLOR, RENAL, PTH, [id number], CBCNO, URIC #### [facility] [address] [place] [id number] USAHemoglobin Test strip Ql (U)Ordered By: Lizette Schaffer on 25-97-3539Abgrwthcki Ql (U)NegativeNegativeRegency Hospital Toledo Hemoglobin [Mass/volume] in BloodOrdered By: Lizette Connerdir on 32-69-5727Eupjnxrymc (Bld) [Mass/Vol]12.3 g/vUGtfque07.8-15.4FOhioHealth Grady Memorial Hospital Comment on above:Performed By: #### JOSE SERUM, SPE W INTERPRET, KAPPA #### [facility] , #### FE and TIBC, MG, TAYLOR, RENAL, PTH, [id number], CBCNO, URIC #### [facility] [address] [place] [id number] USAHemogram CBC Without Diffon 48-80-7484Fcmp Corpuscular HGB Conc32.5 g/oBSaogek37.0-35.0The [facility] Physician GroupComment on above: Performed By: #### JOSE SERUM, SPE W INTERPRET, KAPPA #### [facility] , #### FE and TIBC, MG, TAYLOR, RENAL, PTH, [id number], CBCNO, URIC #### [facility] [address] [place] [address] USAWhite Blood Count6.6 [CFU]/mLNormal3.8-11.6The [facility] Physician GroupComment on above:Performed By: #### JOSE SERUM, SPE W INTERPRET, KAPPA #### [facility] , #### FE and TIBC, MG, TAYLOR, RENAL, PTH, [id number], CBCNO, URIC #### [facility] [address] [place] [address] USAHyaline casts [#/area] in Urine sediment by Automated countOrdered By: Lizette Schaffer on 06-08-6778Zaeifhy casts Auto (Urine sed) [#/Area]0-8 [LPF]0-8[facility] Hospital ToledoImmunofixation for Urine Ordered By: Lizette Schaffer on 53-56-5301Tzegdazxgberpf Immunofixation (U) [Interp] Comment:.[facility] Hospital ToledoComment on above:Presence of monoclonal protein is unclear at this time. Suggestrepeat in 3 to 6 months if clinically indicated.Performed at: [employer] [address] [place], [place] [id number] Director: Jozef Medina PhD, Phone: [phone] Immunofixation, (JOSE), Urineon 13-90-7618Wtgjlidkjetgvg, (JOSE), UrineComment: Normal.The [facility] Physician GroupComment on above:Result Comment: Presence of monoclonal protein is unclear at this time. Suggest repeat in 3 to 6 months if clinically indicated. Performed at: [employer] [facility] [employer] [facility] [employer] [facility] [address] [place], [place] [id number] [employer] Experience Strategy: Jozef Medina PhD, Phone: [phone] PERFORMED BY: [address] [place] [address] PATHOLOGIST AT RISK PARAPROFESSIONAL CASSIDY CASIANO M.D.Performed By: #### SPE, JOSE,URINE #### [facility] , #### ADDONUAPLUS, CUU, PROCRERAT #### [facility] [address] [place] [address] USAImmunofixation,Serumon 95-45-0373Uvkaishfooeupe, Serum CommentNormal.The [facility] Physician GroupComment on above:Result Comment: No monoclonality detected.Performed By: #### SPE, JOSE,URINE #### [facility] , #### ADDONUAPLUS, CUU, PROCRERAT #### [facility] [address] [place] [address] USAImmunoglobulin A, Mjqlv463 mg/vLJarxvw93-959Qgr [facility] Physician [facility] HospitalComment on above:Performed By: #### SPE, JOSE,URINE #### [facility] , #### ADDONUAPLUS, CUU, PROCRERAT #### [facility] [address] [place] [address] USAImmunoglobulin G1018 mg/rVEfcnzs773-1449Xuj [facility] Physician GroupComment on above:Performed By: #### SPE, JOSE,URINE #### [facility] , #### ADDONUAPLUS, CUU, PROCRERAT #### [facility] [address] [place] [address] USAImmunoglobulin M, Serum91 mg/oLBjdhfw26-123Juu [facility] Physician [facility] HospitalComment on above:Result Comment: Performed at: [facility] [address] [id number] [employer] Experience Strategy: Jozef Medina PhD, Phone: [phone] By: #### SPE, JOSE,URINE #### [facility] , #### ADDONUAPLUS, CUU, PROCRERAT #### [facility] [address] [place] [address] USAIron [Mass/volume] in Serum or PlasmaOrdered By: Lizette Schaffer on 06-39-2202Eauz [Mass/Vol]54 ug/wJCppqnl00-525BbnwborcsRegency Hospital ToledoComment on above:Performed By: #### SPE, JOSE,URINE #### [facility] , #### ADDONUAPLUS, CUU, PROCRERAT #### [facility] [address] [place] [address] USAIron and TIBC Profileon 09-22-2024% Iron Nsbwosyyfg68.0 % Uiokqc34-79Zjg [facility] Physician GroupComment on above:Performed By: #### SPE, JOSE,URINE #### [facility] , #### ADDONUAPLUS, CUU, PROCRERAT #### [facility] [address] [place] [address] USATotal Iron Binding Pzqjosok797 ug/pWWnl708-919Tae [facility] Physician GroupComment on above:Performed By: #### SPE, JOSE,URINE #### [facility] , #### ADDONUAPLUS, CUU, PROCRERAT #### [facility] [address] [place] [address] USAKetones [Presence] in Urine by Test stripOrdered By: Lizette Schaffer on 88-40-9217Kiunzci Ql (U)NegativeNormalNegOhioHealthComment on above:Order Comment: Name Collection Type:: Clean- Voided MidstreamPerformed By: #### SPE, JOSE,URINE #### [facility] , #### ADDONUAPLUS, CUU, PROCRERAT #### [place] [address] USALeukocyte esterase [Presence] in Urine by Test strip Ordered By: Lizette Schaffer on 99-92-0091Cvaydgkbm esterase Test strip Ql (U)1+ NormalNegOhioHealthComment on above:Order Comment: Name Collection Type:: Clean-Voided MidstreamPerformed By: #### SPE, JOSE,URINE #### [facility] , #### ADDONUAPLUS, CUU, PROCRERAT #### [address] [place] [address] USALeukocytes [#/area] in Urine sediment by Automated count Ordered By: Lizette Connerdir on 83-97-5848FPU Auto (Urine sed) [#/Area]5-9 [HPF]High 0-4FOhioHealth Grady Memorial HospitalLeukocytes [#/volume] corrected for nucleated erythrocytes in Blood by Automated counOrdered By: Lizette Sarbjit on 62-34-4496OQU corrected for nucl RBC Auto (Bld) [#/Vol]6.6 10*3/uL3.8-11.6 [facility] [Entitic mass] by Automated countOrdered By: Lizette Sarbjit on 66-93-4374XLF (RBC) [Entitic mass]28.9 ipFexxnl44.7-34.3 [facility] ToledoComment on above:Performed By: #### JOSE SERUM, SPE W INTERPRET, KAPPA #### [facility] , #### FE and TIBC, MG, TAYLOR, RENAL, PTH, [id number], CBCNO, URIC #### [facility] [address] [place], [place] [address] [facility] Auto (RBC) [Mass/Vol]Ordered By: Lizette Connerdir on 22-18-2386RDFI (RBC) [Mass/Vol]32.5 g/dL32.0-35.0Reg[facility] Hospital ToledoMCV [Entitic volume] by Automated countOrdered By: Lizette Sarbjit on 25-74-3518DSL (RBC) [Entitic vol]89.0 oIYwopfl75-759RdfwkmkqkRegency Hospital ToledoComment on above:Performed By: #### JOSE SERUM, SPE W INTERPRET, KAPPA #### [facility] , #### FE and TIBC, MG, TAYLOR, RENAL, PTH, [id number], CBCNO, URIC #### [facility] [address] [place], [place] [address] USAMagnesium [Mass/volume] in Serum or PlasmaOrdered By: Lizette Sarbjit on 18-05-6110Htgepykjd [Mass/Vol]1.7 mg/dLLow1.9-2.7FOhioHealth Grady Memorial HospitalComment on above:Performed By: #### SPE, JOSE,URINE #### [facility] , #### ADDONUAPLUS, CUU, PROCRERAT #### [facility] [address] [place] [address] USAMucus [Presence] in Urine by AutomatedOrdered By: Lizette Schaffer on 94-68-1815Shbmx Auto Ql (U)Rare [LPF][facility] Nitrite Test strip Ql (U)Ordered By: Lizette Schaffer on 20-35-0677Btsllnu Ql (U) NegativeNegativeRegency Hospital ToledoNo Panel InformationOrdered By: Lizette Schaffer on 88-82-2449Crccvcd Electrophoresis M-SpikeNot observed g/dLNot ObservedRegency Hospital ToledoProtein Electrophoresis NoteComment. [facility] Hospital ToledoComment on above:Protein electrophoresis scan will follow via computer,mail, or student loan counselor delivery.Performed at: [employer] [facility] [facility] [employer] [facility] [employer] [address] [id number] Director: Jozef Medina PhD, Phone: [phone] GFR (CKD-EPI)22.480 mL/MinRegency Hospital ToledoPharmacy Creatinine Clearance (ChemN/AFOhioHealth Grady Memorial Hospital Protein Electrophoresis InterpretComment.[facility] Comment on above:Faint band in gamma region suspicious for monoclonalimmunoglobulin. This band may represent a benign spike asseen in older people or could be a paraprotein as seen inMultiple Myeloma, Waldenstrom's Ma croglobulinemia orLymphoma. Depending on clinical circumstances, furtherdiagnostic studies may include serum immunofixation orserum free light chain quantitation.Performed at: [employer] [facility] [employer] [address] [id number] Director: Jozef Medina PhD, Phone: [phone].intact [Mass/volume] in Serum or PlasmaOrdered By: Lizette Schaffer on 09-22-2024 Parathyrin.intact [Mass/Vol]68.7 pg/iI34-01XpgzhzstoRegency Hospital Toledo Parathyroid Hormone Intacton 40-23-8936Hljucxoonum Hormone Lqtdkg28.7 pg/mL Fraagb67-82Bot [facility] Physician GroupComment on above:Result Comment: PERFORMED BY: [place] [id number] PATHOLOGIST AT RISK PARAPROFESSIONAL CASSIDY CASIANO M.D.Performed By: #### JOSE SERUM, SPE W INTERPRET, KAPPA #### [facility] , #### FE and TIBC, MG, TAYLOR, RENAL, PTH, [id number], CBCNO, URIC #### [facility] [address] [place] [address] USAPhosphate [Mass/volume] in Serum or PlasmaOrdered By: Lizette Sarbjit on 45-99-4771Qojwliang [Mass/Vol]3.6 mg/dLNormal2.5-4.5FOhioHealth Grady Memorial HospitalComment on above:Performed By: #### JOSE SERUM, SPE W INTERPRET, KAPPA #### [facility] , #### FE and TIBC, MG, TAYLOR, RENAL, PTH, [id number], CBCNO, URIC #### [facility] [address] [place] [address] USAPlatelet mean volume [Entitic volume] in Blood by Automated countOrdered By: Lizette Sarbjit on 77-64-0588Qslemfhu mean volume (Bld) [Entitic vol]8.1 fLNormal6.3-10.7FOhioHealth Grady Memorial HospitalComment on above:Result Comment: PERFORMED BY: [address] [address] PATHOLOGIST AT RISK PARAPROFESSIONAL CASSIDY CASIANO M.D.Performed By: #### JOSE SERUM, SPE W INTERPRET, KAPPA #### [facility] , #### FE and TIBC, MG, TAYLOR, RENAL, PTH, [id number], CBCNO, URIC #### [facility] [address] [place] [address] USAPlatelets [#/volume] in Blood by Automated countOrdered By: Lizette Sarbjit on 88-58-6357Qgpgwhdqy (Bld) [#/Vol]212 10*3/zNTuoimq566-624 [facility] ToledoComment on above:Performed By: #### JOSE SERUM, SPE W INTERPRET, KAPPA #### [facility] , #### FE and TIBC, MG, TAYLOR, RENAL, PTH, [id number], CBCNO, URIC #### [place] [address] USAPotassium [Moles/volume] in Serum or PlasmaOrdered By: Lizette Schaffer on 72-65-0689Rlyvhvtlo [Moles/Vol]5.7 mmol/LHigh3.5-5.1FOhioHealth Grady Memorial HospitalComment on above:Performed By: #### JOSE SERUM, SPE W INTERPRET, KAPPA #### [facility] , #### FE and TIBC, MG, TAYLOR, RENAL, PTH, [id number], CBCNO, URIC #### [facility] [address] [place], [place] [address] USAProt Electrophoresis w/Interpon 15-99-7209Fqllaps [Mass/Vol]3.2 g/dLNormal2.9-4.4The [facility] Hospital Physician GroupComment on above: Performed By: #### SPE, JOSE,URINE #### [facility] , #### ADDONUAPLUS, CUU, PROCRERAT #### [place] [address] USAAlbumin/Globulin [Mass ratio]1.1 {ratio}Normal0.7-1.7The [facility] Hospital Physician GroupComment on above:Performed By: #### SPE, JOSE,URINE #### [facility] , #### ADDONUAPLUS, CUU, PROCRERAT #### [facility] [address] [place], [place] [address] DDOGhyjh-7-Uxabecis6.3 g/dLNormal0.0-0.4The [facility] Physician GroupComment on above:Performed By: #### SPE, JOSE,URINE #### [facility] , #### ADDONUAPLUS, CUU, PROCRERAT #### [place] [address] NAEUepnm-2-Lviwrhxf0.8 g/dLNormal0.4-1.0The [facility] Hospital Physician GroupComment on above:Performed By: #### SPE, JOSE,URINE #### [facility] , #### ADDONUAPLUS, CUU, PROCRERAT #### [facility] [address] [place] [address] USABeta Globulin0.9 g/dLNormal0.7-1.3The [facility] Physician GroupComment on above:Performed By: #### SPE, JOSE,URINE #### [facility] , #### ADDONUAPLUS, CUU, PROCRERAT #### [facility] [address] [place] [address] USAGamma Globulin0.9 g/dLNormal0.4-1.8The [facility] Physician GroupComment on above:Performed By: #### SPE, JOSE,URINE #### [facility] , #### ADDONUAPLUS, CUU, PROCRERAT #### [place] [address] USAGlobulin (S) [Mass/Vol]2.9 g/dLNormal2.2-3.9The [facility] Physician GroupComment on above:Performed By: #### SPE, JOSE,URINE #### [facility] , #### ADDONUAPLUS, CUU, PROCRERAT #### [facility] [address] [place] [address] USAM-SpikeComment:NormalNot ObservedThe [facility] Hospital Physician GroupComment on above:Result Comment: SPE shows an asymmetrical gamma.Performed By: #### SPE, JOSE,URINE #### [facility] , #### ADDONUAPLUS, CUU, PROCRERAT #### [facility] [address] [place] [address] USAProtein [Mass/Vol]6.1 g/dLNormal6.0-8.5The [facility] Physician GroupComment on above:Performed By: #### SPE, JOSE,URINE #### [facility] , #### ADDONUAPLUS, CUU, PROCRERAT #### [place] [address] USASPE-InterpretationCommentNormal.The [facility] Hospital Physician GroupComment on above:Result Comment: Faint band in gamma region suspicious for monoclonal immunoglobulin. This band may represent a benign spike as seen in older people or could be a paraprotein as seen in Multiple Myeloma, Waldenstrom's Macroglobulinemia or Lymphoma. Depending on clinical circumstances, further diagnostic studies may include serum immunofixation or serum free light chain quantitation. Performed at: [facility] [id number] [employer] Experience Strategy: Jozef Medina PhD, Phone: [phone] By: #### SPE, JOSE,URINE #### [facility] , #### ADDONUAPLUS, CUU, PROCRERAT #### [place] [address] USASPE-NoteCommentNormal.The [facility] Hospital Physician GroupComment on above:Result Comment: Protein electrophoresis scan will follow via computer, mail, or student loan counselor delivery.Performed By: #### SPE, JOSE,URINE #### [facility] , #### ADDONUAPLUS, CUU, PROCRERAT #### [facility] [address] [place] [address] USAProtein Creat Ratio Ur Randomon 20-34-7900Jvfraxulhw, Urine (Random)153.00 mg/dLNormalThe [facility] Hospital Physician GroupComment on above: Result Comment: No reference range establishedPerformed By: #### SPE, JOSE,URINE #### [facility] , #### ADDONUAPLUS, CUU, PROCRERAT #### [place] [address] USAUrine Protein/Creatinine Toekg078 mg/g{Cre}Normal0-200The [facility] Hospital Physician GroupComment on above:Result Comment: PERFORMED BY: [place] [address] PATHOLOGIST AT RISK PARAPROFESSIONAL CASSIDY CASIANO M.D.Performed By: #### SPE, JOSE,URINE #### [facility] , #### ADDONUAPLUS, CUU, PROCRERAT #### [place] [address] USAProtein Electrophoresis, Serumon 09-22-2024 Zqtnh-8-Zyhikwph2.3 g/dLNormal0.0-0.4The [facility] Physician GroupComment on above:Performed By: #### SPE, JOSE,URINE #### [facility] , #### ADDONUAPLUS, CUU, PROCRERAT #### [place] [address] QSJFnlle-2-Kkrdbmmp0.8 g/dLNormal0.4-1.0The [facility] Physician GroupComment on above:Performed By: #### SPE, JOSE,URINE #### [facility] , #### ADDONUAPLUS, CUU, PROCRERAT #### [place] [address] USABeta Globulin0.9 g/dLNormal0.7-1.3The [facility] Physician GroupComment on above:Performed By: #### SPE, JOSE,URINE #### [facility] , #### ADDONUAPLUS, CUU, PROCRERAT #### [place] [address] USAGamma Globulin0.9 g/dLNormal0.4-1.8The [facility] Physician GroupComment on above:Performed By: #### SPE, JOSE,URINE #### [facility] , #### ADDONUAPLUS, CUU, PROCRERAT #### [facility] [address] [place] [address] USAM-SpikeNot ObservedNormalNot ObservedThe [facility] Physician GroupComment on above:Performed By: #### SPE, JOSE,URINE #### [facility] , #### ADDONUAPLUS, CUU, PROCRERAT #### [place] [address] USASPE-NoteCommentNormal.The [facility] Hospital Physician GroupComment on above:Result Comment: Protein electrophoresis scan will follow via computer, mail, or student loan counselor delivery. Performed at: [facility] [id number] [employer] Experience Strategy: Jozef Medina PhD, Phone: [phone] PERFORMED BY: [place] [address] PATHOLOGIST AT RISK PARAPROFESSIONAL CASSIDY CASIANO M.D.Performed By: #### SPE, JOSE,URINE #### [facility] , #### ADDONUAPLUS, CUU, PROCRERAT #### [place] [address] USAProtein Test strip (U) [Mass/Vol]Ordered By: Lizette Schaffer on 92-73-8950Lhsdacs (U) [Mass/Vol]NegativeNegativeRegency Hospital ToledoProtein [Mass/volume] in UrineOrdered By: Lizette Schaffer on 18-66-7246Rncikrh (U) [Mass/Vol]16 mg/dLHigh0-9[facility] Hospital ToledoComment on above: Performed By: #### SPE, JOSE,URINE #### [facility] , #### ADDONUAPLUS, CUU, PROCRERAT #### [place] [address] USARenal Function Panelon 59-84-0241Wpamfyb [Mass/Vol]3.8 g/dLNormal3.5-5.7The [facility] Physician GroupComment on above:Performed By: #### JOSE SERUM, SPE W INTERPRET, KAPPA #### [facility] , #### FE and TIBC, MG, TAYLOR, RENAL, PTH, [id number], CBCNO, URIC #### [facility] [address] [place] [address] USAGFR/1.73 sq M.predicted MDRD (S/P/Bld) [Vol rate/Area] 22.480 mL/min/{1.73_m2}NormalThe [facility] Hospital Physician GroupComment on above: Performed By: #### JOSE SERUM, SPE W INTERPRET, KAPPA #### [facility] , #### FE and TIBC, MG, TAYLOR, RENAL, PTH, [id number], CBCNO, URIC #### [facility] [address] [place] [address] USASerum free kappa light chain measurementOrdered By: Lizette Schaffer on 35-60-1354Mwheslmeiihbls light chains.kappa.free (S) [Mass/Vol]46.0 mg/LHigh3.3-19.4FJoint Township District Memorial Hospitalerum globulin measurement (mass/volume)Ordered By: Lizette Schaffer on 61-96-3467Sxnlliuj (S) [Mass/Vol]2.8 g/dLNormal2.2-3.9[facility] Hospital ToledoComment on above:Performed By: #### SPE, JOSE,URINE #### [facility] , #### ADDONUAPLUS, CUU, PROCRERAT #### [facility] [address] [place] [address] USASerum immunoglobulin free kappa light chains/immunoglobulin free lambda light chainsOrdered By: Lizette Schaffer on 04-70-1378Ocrrxpfmqzwexp light chains.kappa.free/Immunoglobulin light chains.lambda.free (S) [Mass ratio]1.23Ggrv6.26-1.65[facility] Hospital ToledoComment on above:Performed at: - [facility] [id number] Director: Jozef Medina PhD, Phone: [phone] or plasma IgA measurement (mass/volume)Ordered By: Lizette Sarbjit on 89-56-3119SmY [Mass/Vol]184 mg/aG06-060EphotkzxaThe Bellevue Hospitalerum or plasma IgG measurement (mass/volume)Ordered By: Lizette Sarbjit on 62-06-0161VdV [Mass/Vol]1018 mg/kB435-1490SioatpnzsThe Bellevue Hospitalerum or plasma IgM measurement (mass/volume)Ordered By: Lizette Sarbjit on 31-08-8187UiF [Mass/Vol]91 mg/eT89-110 [facility] ToledoComment on above:Performed at: [facility] LabPre[facility] [id number] Director: Jozef Medina PhD, Phone: [phone] or plasma albumin measurement (mass/volume)Ordered By: Lizette Sarbjit on 01-92-4368Xtdntpm [Mass/Vol]3.2 g/dLNormal2.9-4.4FOhioHealth Grady Memorial HospitalComment on above:Performed By: #### SPE, JOSE,URINE #### [facility] , #### ADDONUAPLUS, CUU, PROCRERAT #### [facility] [address] [place] [address] USASerum or plasma albumin/globulin mass ratioOrdered By: Lizette Sarbjit on 43-94-5183Wlhhyma/Globulin [Mass ratio]1.1 {ratio}Normal0.7-1.7 [facility] Hospital ToledoComment on above:Performed By: #### SPE, JOSE,URINE #### [facility] , #### ADDONUAPLUS, CUU, PROCRERAT #### [facility] [address] [place] [address] USASerum or plasma alpha 1 globulin measurement by electrophoresis (mass/volume)Ordered By: Lizette Sarbjit on 65-05-2761Jazgp 1 globulin Elph [Mass/Vol]0.3 g/dL0.0-0.4FJoint Township District Memorial Hospitalerum or plasma alpha 2 globulin measurement by electrophoresis (mass/volume)Ordered By: Lizette Schaffer on 46-35-5771Dilfk 2 globulin Elph [Mass/Vol]0.8 g/dL0.4-1.0 The Bellevue Hospitalerum or plasma anion gap determinationOrdered By: Lizette Schaffer on 29-59-2131Xpzwy gap [Moles/Vol]10.3 mmol/LNormal6.0-15.0 [facility] ToledoComment on above:Performed By: #### JOSE SERUM, SPE W INTERPRET, KAPPA #### [facility] , #### FE and TIBC, MG, TAYLOR, RENAL, PTH, [id number], CBCNO, URIC #### [place] [address] USASerum or plasma beta globulin measurement by electrophoresis (mass/volume)Ordered By: Lizette Schaffer on 65-60-4244Ryzc globulin Elph [Mass/Vol]0.9 g/dL0.7-1.3FJoint Township District Memorial Hospitalerum or plasma gamma globulin measurement by electrophoresis (mass/volume)Ordered By: Lizette Schaffer on 95-54-1652Szzfh globulin Elph [Mass/Vol]0.9 g/dL0.4-1.8The [facility] Hospitalerum or plasma immunoglobulin free lambda light chains measurement (mass/volume)Ordered By: Lizette Schaffer on 35-74-8035Gbfyipyreplgys light chains.lambda.free [Mass/Vol]25.9 mg/L5.7-26.3FJoint Township District Memorial Hospitalerum or plasma iron binding capacity measurement (mass/volume)Ordered By: Lizette Schaffer on 61-96-9018Epoc binding capacity [Mass/Vol]245 ug/xQVea356-713 [facility] Hospitalerum or plasma iron saturation measurement (mass fraction)Ordered By: Lizette Schaffer on 43-71-7529Goez saturation [Mass fraction]22.0 %20-50The [facility] Hospitalerum total protein measurementOrdered By: Lizette Schaffer on 52-18-6123Axgvffi [Mass/Vol]6.0 g/dLNormal 6.0-8.5FOhioHealth Grady Memorial HospitalComment on above:Performed By: #### SPE, JOSE,URINE #### [facility] , #### ADDONUAPLUS, CUU, PROCRERAT #### [facility] [address] [place] [address] USASodium [Moles/volume] in Serum or PlasmaOrdered By: Lizette Sarbjit on 34-71-5930Ghgtma [Moles/Vol]138 mmol/GUiyazj051-623GxslblwolRegency Hospital ToledoComment on above:Performed By: #### JOSE SERUM, SPE W INTERPRET, KAPPA #### [facility] , #### FE and TIBC, MG, TAYLOR, RENAL, PTH, [id number], CBCNO, URIC #### [facility] [address] [place] [address] USASpecific gravity Test strip (U) [Rel density]Ordered By: Lizette Sarbjit on 46-54-7486Douepzcq gravity (U) [Rel density]1.0181.001-1.030 [facility] Hospital ToledoTransferrin [Mass/volume] in Serum or Plasma Ordered By: Lizette Sarbjit on 71-02-3357Mzwigworuik [Mass/Vol]175 mg/aNEli789-944 [facility] ToledoComment on above:Performed By: #### SPE, JOSE,URINE #### [facility] , #### ADDONUAPLUS, CUU, PROCRERAT #### [facility] [address] [place] [address] USAUrate [Mass/volume] in Serum or PlasmaOrdered By: Lizette Sarbjit on 50-61-1379Qkdvi [Mass/Vol]7.9 mg/dLHigh2.3-6.6FOhioHealth Grady Memorial HospitalComment on above:Performed By: #### SPE, JOSE,URINE #### [facility] , #### ADDONUAPLUS, CUU, PROCRERAT #### [facility] [address] [place] [address] USAUrea nitrogen [Mass/volume] in Serum or PlasmaOrdered By: Lizette Schaffer on 41-83-5636Gmzr nitrogen [Mass/Vol]40 mg/dLHigh7-25[facility] ToledoComment on above:Performed By: #### JOSE SERUM, SPE W INTERPRET, KAPPA #### [facility] , #### FE and TIBC, MG, TAYLOR, RENAL, PTH, [id number], CBCNO, URIC #### [facility] [address] StreetUrine Cultureon 69-63-6989Fkmbuktj identified Cx Nom (U) <9,000 colonies/ml mixed bacterial skin contaminants 2 Days PERFORMED BY: [place] [address] PATHOLOGIST AT RISK PARAPROFESSIONAL CASSIDY CASIANO M.D.NormalThe Select Specialty Hospital Physician GroupComment on above: Performed By: #### SPE, JOSE,URINE #### [facility] , #### ADDONUAPLUS, CUU, PROCRERAT #### [facility] [address] StreetUrine cultureOrdered By: Lizette Schaffer on 80-57-6082Veafguoo identified Cx Nom (U)2 DaysRegency Hospital ToledoUrine protein/creatinine ratioOrdered By: Lizette Schaffer on 83-73-9035Qkjwpao/Creatinine (U) [Ratio]105 mg/g{Cre}0-200[facility] Hospital ToledoUrobilinogen Test strip (U) [Mass/Vol]Ordered By: Lizette Schaffer on 15-10-8860Tqtzwgjwzetu (U) [Mass/Vol]Normal mg/dLNormalRegency Hospital ToledoVitamin D 25 Hydroxy Totalon 72-24-2105Rfbweao D 25 Hydroxy Total29.7 ng/cEQup60-244Tqv [facility] Physician GroupComment on above:Result Comment: VITAMIN D STATUS 25(OH)VITAMIN D RANGE (ng/mL) Deficient <20 Insufficient 20 to <30 Sufficient 30 to 100 Reference: Jo MF,Jessica NC, Elizabeth LAMBERT, et al. Evaluation,treatment, and prevention of vitamin D deficiency; an Endocrine Society clinical practice guideline. JCEM. 2010; 96(7):1911-30. PERFORMED BY: [place] [address] PATHOLOGIST AT RISK PARAPROFESSIONAL CASSIDY CASIANO M.D.Performed By: #### SPE, JOSE,URINE #### [facility] , #### ADDONUAPLUS, CUU, PROCRERAT #### [facility] [address] [place] [id number] USAVitamin D+Metabolites [Mass/volume] in Serum or Plasma Ordered By: Lizette Schaffer on 92-87-9312Pfwltqp D+Metabolites [Mass/Vol]29.7 ng/mL Yox78-849CmvccxqmpRegency Hospital ToledoComment on above:VITAMIN D STATUS 25(OH)VITAMIN D RANGE (ng/mL) Deficient <20 Insufficient 20 to <81Uagawknytn92 to 100Reference: Jo MF,Jessica PENA, Elizabeth LAMBERT, et al. Evaluation,treatment, and prevention of vitamin D deficiency; an Endocrine Society clinical practice guideline. JCEM. 2010; 96(7):1911-30.pH of Urine by Test stripOrdered By: Lizette Schaffer on 18-21-0858eW (U)5.0 [pH]Normal5.0-9.0 [facility] Hospital ToledoComment on above:Order Comment: Name Collection Type:: Clean-Voided MidstreamPerformed By: #### SPE, JOSE,URINE #### [facility] , #### ADDONUAPLUS, CUU, PROCRERAT #### [facility] [address] [place] [address] USAAmbulatory Visit Summaryon 71-41-6358Swupbrdivj Visit SummaryAmbulatory Visit Summary VERO SADLER :1950 [...] ROSETTA MENDEZ MD Where: [facility] [address], [address] [place] [address]- You Need to Schedule the Following Appointments Follow Up with ROSETTA MENDEZ MD, URL When: Where: Medications What How [...] condition in w (more content not included)... NormalAffinity Health Partnerser [facility] Medical CenterUrology Office/Clinic Noteon 99-54-7606Rmmxbkx Office/Clinic NoteUrology Office/Clinic Note Chief Complaint f/u [...] with voice recognition artificial intelligence software, specifically [employer], [employer] and or [employer]. Substitutions may have occurred due to the [...] or stones. 6. 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 No BTs. Has pacemaker. Hx of MD but was asx, not sure when it [...] Instructions: 6 mos Patient Education Urinary Incontinence Federica Quan, personally scribed for Dr. Desai on 08/21/2024 [...] No qualifying data Pr (more content not included)...[facility] Healthcare System GlenbeighComment on above:Result Comment: Electronically Signed By: ROSETTA MENDEZ MD\.br\Date and Time Signed: 08/21/24 11:14 EDT\.br\Electronically Co- Signed By: Federica Luna\.br\Date and Time Co-Signed: 08/21/24 11:[address] Posterior fossa WO contraston 64-86[place] [address] [place] Scan Report Signed Patient: VERO SADLER MR#: [id number] : 1950 Acct:[id number] Age/Sex: 74 / F ADM Date: 08/15/24 Loc: CT Attending Dr: John Mathews M.D. Ordering Physician: John Mathews M.D. Date of Service: 08/15/24 Procedure(s): CT int auditory canals w/o con Accession Number(s): [id number] cc: Debbie Bhatia M.D. [address] [address] Patient Name: VERO SADLER MRN: [id number] date: 1950 Sex: F Assigned Patient Location: CT Current Patient Location: CT Accession/Order Number: [id number] Exam Date: 08/15/2024 14:47 Report Date: 08/15/2024 [...] Gutierrez M.D. 08/15/2024 2:51 PM Dictation Location: [place] [address] Electronically authenticated by: [id number] Y Date: 08/15/2024 14:51 Dictated By: Victor Manuel Gutierrez M.D. Signed By: 08/15/24 1454 DD/ 145 TD/TT: Excavating Contractor:LORIHRadiology, Radiologist, - 08/15/2024 [place] [address] CT Scan Report Signed Patient: VERO SADLER MR#: [id number] : 1950 Acct:[id number] Age/Sex: 74 / F ADM Date: 08/15/24 Loc: CT Attending Dr: John Mathews M.D. Ordering Physician: John Mathews M.D. Date of Service: 08/15/24 Procedure(s): CT int auditory canals w/o con Accession Number(s): [id number] cc: Debbie Bhatia M.D. [place] [address] Patient Name: VERO SADLER MRN: [id number] date: 1950 Sex: F Assigned Patient Location: CT Current Patient Location: CT Accession/Order Number: [id number] Exam Date: 08/15/2024 14:47 Report Date: 08/15/2024 [...] Gutierrez M.D. 08/15/2024 2:51 PM Dictation Location: [place] [address] Electronically authenticated by: [id number] Y Date: 08/15/2024 14:51 Dictated By: Victor Manuel Gutierrez M.D. Signed By: 08/15/24 1454 DD/ 1451 TD/TT: Excavating Contractor: NOMS HealthcareRadiology Study observation (narrative)NOMS HealthcareCT Posterior fossa WO contrastOrdered By: Radiologist Radiology on 14-69-7639[facility] Work Phone: Orders Onlyon 78-08-8294Htqkbs [id number] Vero Sadler 1950 F Date Provider Department Center 08/11/2024 JOSEY ARNOLD [facility] Family History Problem Relation Age of Onset Other Mother Coronary artery disease Mother Other Mother Other Mother Other Father Hypertension Father Hyperlipidemia Father Other Daughter Family Status - Relation Status Age at Mother Father DaughterNormalUniversity of Cuero Regional HospitalOrders [id number] Vero Sadler 1950 F Date Provider Department Center 08/11/2024 OLLIE HALLMAN [facility] Family History Problem Relation Age of Onset Other Mother Coronary artery disease Mother Other Mother Other Mother Other Father Hypertension Father Hyperlipidemia Father Other Daughter Family Status - Relation Status Age at Mother Father DaughterNormalUniversAkron Children's HospitalNo Panel InformationOrdered By: Kal Molina on 89-00-0802Xsimqmztxyfuq Pathology TestSee commentRegency Hospital ToledoComment on above:See report. Scanned copy available in EMR.Pathology Request for Lab Corpon [id number] Request for Lab Louisa NormalThe Select Specialty Hospital Physician GroupComment on above:Order Comment: GI SPECIMEN Result Comment: See report. Scanned copy available in EMR. PERFORMED BY: [place] [address] PATHOLOGIST AT RISK PARAPROFESSIONAL GENE BARRAGAN M.D.Performed By: #### PATH TO [facility] #### [place] [address] USAMain OR Intraoperative Recordon [id number] OR Intraoperative RecordMain OR Intraoperative Record IntraOp Document Type FT Summary Primary Physician: ROSETTA MENDEZ MD Finalized Date/Time: 07/14/24 10:37:22 Pt. Name: VERO SADLER/Sex: 1950 Female Med Rec #: [id number] Physician: ROSETTA MENDEZ MD Financial #: [id number] Pt. 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 [...] and tissue Entry 1 Skin Integrity Intact, Delia, Warm, & Skin Abnormality No Dry Outcomes [...] in Stirrup Posit (more content not included)...Normal [facility] HospitalDischarge Instructionson [id number] InstructionsDischarge Instructions VERO SADLER :1950 Visit Date:07/13/2024 [...] 12 hours Duration: 5 Days Pickup at [facility]/pharmacy #[id number] New phenazopyridine (Pyridium 100 mg Tab) 1 Tablets By Mouth 3 times a day Duration: 3 Days Pickup at [facility]/pharmacy #[id number] Unchanged albuterol (Albuterol (Eqv-ProAir HFA)) [...] Mouth 2 times a day Pharmacy Information [facility]/pharmacy #[id number]: [address], [place] [id number] [phone] Allergies Adhesive Bandage (Hives) Education Materials Common [...] signed up for this yet, please contact Health Information Management at [phone] to get signed up today. Patient Name: VERO SADLER I have received this information and my questions have been answered. 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 Name: VERO SADLER /Sex: 1950 Female Med Rec #: [id number] Physician: ROSETTA MENDEZ MD Financial #: [id number] Pt. Type: A Room/Bed: AS18 Admit/Disch: 07/13/24 [...] Signatures Signed By: Orin Richmond RN 07/13/24 09:53NormalAffinity Health Partnerser [facility] CenterMain OR PACU II Recordon [id number] OR PACU II RecordMain OR PACU II Record PACU Phase II Document Type FT Summary Primary Physician: ROSETTA MENDEZ MD Finalized Date/Time: 07/13/24 15:25:20 Pt. Name: SADLER VERO Tri/Sex: 1950 Female Med Rec #: [id number] Physician: ROSETTA MENDEZ MD Financial #: [id number] Pt. Type: A Room/Bed: [facility] Admit/Disch: 07/13/24 07:02:16 - 07/13/24 11:00:00 Institution: [...] Signatures Signed By: Patricia Garvin RN 07/13/24 15:25NoLakeHealth Beachwood Medical CenterMain OR Preoperative Recordon 98-69-2632Bmbm OR Preoperative RecordMain OR Preoperative Record PreOp Document Type FT Summary Primary Physician: ROSETTA MENDEZ MD Finalized Date/Time: 07/13/24 09:04:45 Pt. Name: VERO SADLER /Sex: 1950 Female Med Rec #: [id number] Physician: ROSETTA MENDEZ MD Financial #: [id number] Pt. Type: A Room/Bed: [place] [address] Admit/Disch: 07/13/24 07:02:16 - Institution: Case Times [...] Signatures Signed By: Andrew Holly Ii 07/13/24 09:04[facility] System GlenbeighOperative Reporton 20-45-1322Wshfnbsud ReportOperative Report Patient: VERO SADLER Age: 74 years Sex: Female : 1950 Associated Diagnoses: None Author: ROSETTA MENDEZ MD Procedure SURGEON: Rosetta Mendez MD PREOPERATIVE DIAGNOSIS: Stress urinary incontinence with , intrinsic sphincter deficiency POSTOPERATIVE DIAGNOSIS: Same PROCEDURE: Cystoscopy, injection of urethral bulking agent CPT 91775 FINDINGS: Urethra injected at 4 units packed [...] in 6 WEEKS. Needs to void before wiNoLakeHealth Beachwood Medical Center Comment on above:Result Comment: Electronically Signed By: BRYAN BELTRÁN, ROSETTA\.br\Date and Time Signed: 07/13/24 10:17 EDTBMPon 48-50-8671Jbqds gap [Moles/Vol]11 mmol/LNormal6-16[facility] HospitalComment on above: Performed By: #### [id number] #### [facility] [address], [place] [address]Rritahk [Mass/Vol]9.1 mg/dLNormal8.9-11.1FAshtabula County Medical CenterComment on above:Performed By: #### [id number] #### [facility] [address], [place] [address]Zsofveea [Moles/Vol]107 mmol/EXindcd467-824JsqcllMemorial Health System Selby General HospitalComment on above:Performed By: #### [id number] #### [facility] [address], [place] [address]OC9 [Moles/Vol]26 mmol/YDqevjw29-00HwpoukMemorial Health System [facility] Hospital Comment on above:Performed By: #### [id number] #### [facility] [address], [place] [address]Kbejzrxwor [Mass/Vol]1.6 mg/dLHigh0.5-1.3FAshtabula County Medical CenterComment on above:Performed By: #### [id number] #### [facility] [address], [place] [address]Geifllb [Mass/Vol]91 mg/uUUxuipb41-327YmndkeMemorial Health System Selby General HospitalComment on above:Performed By: #### [id number] #### [facility] [address] [place] [address]Opwhmxagk [Moles/Vol]4.7 mmol/LNormal3.5-5.3FAshtabula County Medical CenterComment on above:Performed By: #### [id number] #### [facility] [address] [place] [address]Gqmvtk [Moles/Vol]139 mmol/NShfvif270-102YxqrnqMemorial Health System Selby General HospitalComment on above:Performed By: #### [id number] #### [facility] [address] [place] [address]Ntog nitrogen [Mass/Vol]24 mg/dLHigh5-21[facility] HospitalComment on above:Performed By: #### [id number] #### [facility] [address] [place] [address]Zbfw nitrogen/Creatinine [Mass ratio]15 No FkyotRlpnpi25-31 [facility] HospitalComment on above:Performed By: #### [id number] #### [facility] [address] [place] [address]SUA w/ Auto Diffon 36-05-5861Tgqjbfswn/100 WBC (Bld)1.2 %Normal 0.0-2.0[facility] HospitalComment on above:Performed By: #### [id number] #### [facility] [address] [place] [address]Tduoyxmkq/Leukocytes Auto (Bld) [Pure # fraction]0.1 E9/LNormal 0.0-0.2FAshtabula County Medical CenterComment on above:Performed By: #### [id number] #### [facility] [address] [place] [address]Cnuhpfotqcz (Bld) [#/Vol]0.1 E9/LNormal0.0-0.5FAshtabula County Medical CenterComment on above:Performed By: #### [id number] #### [facility] [address] [place] [address]Tsetiumsilk/100 WBC (Bld)1.6 %Normal0.0-8.0[facility] HospitalComment on above:Performed By: #### [id number] #### [facility] [address] [place] [address]Bqmjzdwegss distribution width (RBC) [Ratio]14.6 %High10.9-14.2 [facility] HospitalComment on above:Performed By: #### [id number] #### [facility] [address] [place] [address]Veexaboide (Bld) [Volume fraction]34.0 %Upocdq84.0-46.0[facility] HospitalComment on above:Performed By: #### [id number] #### [facility] [address] [place] [address]Dzixuhlqfr (Bld) [Mass/Vol]11.2 g/dLLow12.0-16.0[facility] HospitalComment on above:Performed By: #### [id number] #### [facility] [address] [place] [address]Hifajtfmejv (Bld) [#/Vol]1.2 E9/LNormal1.0-4.0[facility] HospitalComment on above:Performed By: #### [id number] #### [facility] [address] [place] [address]Mzivoyxscoh/100 WBC (Bld)15.1 %Juxopu74.0-50.0[facility] HospitalComment on above:Performed By: #### [id number] #### [facility] [address] [place] [address]EJY (RBC) [Entitic mass]29.3 dcNpbras01.0-34.0[facility] HospitalComment on above:Performed By: #### [id number] #### [facility] [address] [place] [address]HVEO (RBC) [Mass/Vol]32.9 g/oWOutile70.4-36.0[facility] HospitalComment on above:Performed By: #### [id number] #### [facility] [address] [place] [address]PNI (RBC) [Entitic vol]89.0 kABglrjk90.0-100.0[facility] HospitalComment on above:Performed By: #### [id number] #### [facility] [address] [place] [address]Obuqjymlo (Bld) [#/Vol]0.9 E9/LNormal0.2-1.0[facility] HospitalComment on above:Performed By: #### [id number] #### [facility] [address] [place] [address]Lyexcyrlevm (Bld) [#/Vol]5.3 E9/LNormal2.0-7.5FAshtabula County Medical CenterComment on above:Performed By: #### [id number] #### [facility] [address] [place] [address]Amhwqdeohme/100 WBC (Bld)69.9 %Bjirfj09.0-75.0[facility] HospitalComment on above:Performed By: #### [id number] #### [facility] [address] [place] [address]Lamgluhv070.0 E9/EEtjvxz375.0-500.0[facility] Comment on above:Performed By: #### [id number] #### [facility] [address] [place] [address]Nsqvmxtr mean volume (Bld) [Entitic vol]7.6 fLNormal6.4-10.8 [facility] HospitalComment on above:Performed By: #### [id number] #### [facility] [address], [place] [address]MXZ (Bld) [#/Vol]3.8 E12/LLow4.3-5.9[facility] Comment on above:Performed By: #### [id number] #### [facility] [address], [place] [address]FKU corrected for nucl RBC Auto (Bld) [#/Vol]7.6 E9/LNormal 4.0-11.0[facility] HospitalComment on above:Performed By: #### [id number] #### [facility] [address], [place] [address]YFV APTTon 90-00-6186tLWS Coag (Bld) [Time]29.3 sNOMS HealthcareCHEMISTRYOrdered By: SYSTEM SYSTEM on 50-83-8316Bmezd gap [Moles/Vol] 11 mmol/LNormal6 - 16 mEq/LRemisol ChemCalcium [Mass/Vol]9.1 mg/dLNormal8.9 - 11.1 mg/dLRemisol ChemChloride [Moles/Vol]107 mmol/QRjvewl458 - 111 mmol/L Remisol ChemCO2 [Moles/Vol]26 mmol/UXrogwa88 - 31 mmol/LRemisol ChemCreatinine [Mass/Vol]1.6 mg/dLHigh0.5 - 1.3 mg/dLRemisol OwbyrZFE87 mL/min/1.73 m2Low >=59mL/min/1.73 t7Taxwwfo ChemGlucose [Mass/Vol]91 mg/cZFqjcop09 - 199 mg/dL Remisol ChemPotassium [Moles/Vol]4.7 mmol/LNormal3.5 - 5.3 mmol/LRemisol Chem Sodium [Moles/Vol]139 mmol/SYsnibm684 - 145 mmol/LRemisol ChemUrea nitrogen [Mass/Vol]24 mg/dLHigh5 - 21 mg/dLRemisol ChemUrea nitrogen/Creatinine [Mass ratio]15 mg/riGaehgi48 - 20Remisol ChemCOAGULATIONOrdered By: Jennifer Gross on 02-48-4566gSWE Coag (PPP) [Time]34.6 hUaaana30.1 - 36.5 second(s)[facility] Auto Coag Comment on above:Interpretive Data: Parameter [...] the same coagulation reagent and instrumentation as [facility]. Currently there are no coagulation studies available worldwide for children to 14 days, andno normal ranges. Heparin therapeutic range (represented by Anti-Factor Xa activity of 0.2 - 0.4 U/mL) corresponds to PTT of 56.6 - 109.0 sec.INR Coag (PPP) [Relative time]1.16 {INR}Invalid Interpretation CodeST. JOHN RE[facility] Auto CoagComment on above:Interpretive Data: INR results are specifically intended to assess patients stabilized on long-term Anticoagulation therapy suggested INR s Less Intensive Anticoagulation 2.0 3.0 Conventional Range 3.0 4.5PT Coag (PPP) [Time]13.0 sHigh9.4 - 12.5 second(s)[facility] Auto CoagComment on above:Interpretive Data: 15 days [...] the same coagulation reagent and instrumentation as [facility]. Currently there are no coagulation studies available worldwide for children to 14 days, andno normal ranges.HEMATOLOGYOrdered By: SYSTEM SYSTEM on 57-99-1999Kvwiwdltj/100 WBC (Bld)1.2 %Normal0.0 - 2.0 %Remisol HemeBasophils/Leukocytes Auto (Bld) [Pure # fraction]0.1 E9/LNormal0.0 - 0.2 E9/LRemisol HemeEosinophils (Bld) [#/Vol]0.1 E9/LNormal0.0 - 0.5 E9/LRemisol HemeEosinophils/100 WBC (Bld)1.6 %Normal0.0 - 8.0 %Remisol HemeErythrocyte distribution width (RBC) [Ratio]14.6 %High10.9 - 14.2 %Remisol HemeHematocrit (Bld) [Volume fraction]34.0 %Anrmsg67.0 - 46.0 % Remisol HemeHemoglobin (Bld) [Mass/Vol]11.2 g/dLLow12.0 - 16.0 gm/dLRemisol Heme Lymphocytes (Bld) [#/Vol]1.2 E9/LNormal1.0 - 4.0 E9/LRemisol HemeLymphocytes/100 WBC (Bld)15.1 %Shaddt43.0 - 50.0 %Remisol HemeMCH (RBC) [Entitic mass]29.3 pg Dbyaxr67.0 - 34.0 pgRemisol HemeMCHC (RBC) [Mass/Vol]32.9 g/kLIrqthf04.4 - 36.0 gm/dLRemisol HemeMCV (RBC) [Entitic vol]89.0 aYDbkrjf18.0 - 100.0 fLRemisol Heme Monocytes (Bld) [#/Vol]0.9 E9/LNormal0.2 - 1.0 E9/LRemisol HemeMonocytes/100 WBC (Bld)12.2 %Normal4.0 - 14.0 %Remisol HemeNeutrophils (Bld) [#/Vol]5.3 E9/L Normal2.0 - 7.5 E9/LRemisol HemeNeutrophils/100 WBC (Bld)69.9 %Atxcee23.0 - 75.0 %Remisol NdyoIwjhkqpe218.0 E9/XCykgku157.0 - 500.0 E9/LRemisol HemePlatelet mean volume (Bld) [Entitic vol]7.6 fLNormal6.4 - 10.8 fLRemisol HemeRBC (Bld) [#/Vol]3.8 E12/LLow4.3 - 5.9 E12/LRemisol HemeWBC corrected for nucl RBC Auto (Bld) [#/Vol]7.6 E9/LNormal4.0 - 11.0 E9/LRemisol HemeNo Panel Informationon 25-35-9639EVWKQEVSBFJIW HealthcarePT & PTTon 46-12-6847xHWU Coag (PPP) [Time] 34.6 second(s)Phowxr69.1-36.5Fisher [facility] CenterComment on above:Result Comment: Parameter 15 days [...] the same coagulation reagent and instrumentation as [facility]. Currently there are no coagulation studies available worldwide for children to 14 days, andno normal ranges. Heparin therapeutic range (represented by Anti-Factor Xa activity of 0.2 - 0.4 U/mL) corresponds to PTT of 56.6 - 109.0 sec.Performed By: #### [id number] #### [facility] [address], [place] [address]MZS Coag (PPP) [Relative time]1.16 {INR}Invalid Interpretation Nikky [facility] CenterComment on above:Result Comment: INR results are specifically intended to assess patients stabilized on long-term Anticoagulation therapy suggested INR???s ???Less Intensive Anticoagulation??? 2.0 ??? 3.0 Conventional Range 3.0 ??? 4.5Performed By: #### [id number] #### [facility] [address], [place] [address]QC Coag (PPP) [Time]13.0 second(s)High9.4-12.5Fisher [facility] Medical CenterComment on above:Result Comment: 15 days - [...] the same coagulation reagent and instrumentation as [facility]. Currently there are no coagulation studies available worldwide for children to 14 days, andno normal ranges.Performed By: #### [id number] #### [facility] [address], [place] [address]HRPMGR PROTHROMBIN TIME INR W/O COUMon 44-21-5643RF Coag (PPP) [Time]11.4 sNOMS HealthcareTBH INR1.08NOFL HealthcareComment on above:DESIRED INR: 2.0-3.0 CONDITIONS NOT LISTED BELOW 2.5-3.5 FOR PROSTHETIC HEART VALVE REPLACEMENT 2.5-3.5 RECURRENT THROMBOSIS UA with Cult Rflxon 79-27-0765Pyzwmnuyl Ql (U)NegativeNormalNegativeMemorial Health System Selby General HospitalComment on above:Performed By: #### [id number] #### [facility] [address], [place] [address]Dzenqgt (U)ClearNormalClearMemorial Health System Selby General HospitalComment on above:Performed By: #### [id number] #### [facility] [address], [place] [address]Qoqxf (U)YellowNormalYellowMemorial Health System Selby General HospitalComment on above:Result Comment: Microscopic readings are only performed on those samples that meet specific criteria set forth by [facility].Performed By: #### [id number] #### [facility] [address], [place] [address]Bpeokdx Ql (U)NegativeNormalNegativeMemorial Health System [facility] Hospital Comment on above:Performed By: #### [id number] #### [facility] [address], [place] [address]Eqcnndxxjs Auto test strip (U) [Mass/Vol]NegativeNormalNegative [facility] HospitalComment on above:Performed By: #### [id number] #### [facility] [address], [place] [address]Obrbpqx Auto test strip Ql (U)NegativeNormalNegativeMemorial Health System Selby General HospitalComment on above:Performed By: #### [id number] #### [facility] [address], [place] [address]Hmyrtfcug esterase Auto test strip Ql (U)NegativeNormalNegative [facility] HospitalComment on above:Performed By: #### [id number] #### [facility] [address], [place] [address]Szyuogq Auto test strip Ql (U)NegativeNormalNegativeMemorial Health System Selby General HospitalComment on above:Performed By: #### [id number] #### [facility] [address], [place] [address]eH (U)5.0 [pH]Invalid Interpretation Code5.0-9.0[facility] HospitalComment on above:Performed By: #### [id number] #### [facility] [address], [place] [address]Trxdltp Ql (U)TraceAbnormalNegBrown Memorial Hospital Comment on above:Performed By: #### [id number] #### [facility] [address], [place] [address]Htfiqfve gravity (U) [Rel density]1.016Invalid Interpretation Code1.005-1.030[facility] HospitalComment on above:Performed By: #### [id number] #### [facility] [address], [place] [address]Emcauwimnfpm (U) [Mass/Vol]NegativeNormalNegativeMemorial Health System Selby General HospitalComment on above:Performed By: #### [id number] #### [facility] [address], [place] [address]Txia of Urine collection methodClean CatchACMC Healthcare System GlenbeighComment on above:Performed By: #### [id number] #### [facility] [address], [place] [address]QSOGARIIBRQksdecg By: SYSTEM SYSTEM on 27-75-5870Txkadujxl Ql (U)NegativeNormalNegativemg/dLST. [facility] UA Auto SSClarity (U)Clear (06/26/24 1:56 PM)NormalClearFOU [facility] UA Auto SSColor (U)Yellow 1 (06/26/24 1:56 PM)NormalYellowST. JOHN RE[facility] UA Auto SSComment on above:Interpretive Data: Microscopic readings are only performed on those samples that meet specific criteria set forth by [facility].Glucose Ql (U) NegativeNormalNegativemg/dLFT UA Auto SSHemoglobin Auto test strip (U) [Mass/Vol]NegativeNormalNegativemg/dLFT UA Auto SSKetones Auto test strip Ql (U)NegativeNormalNegativemg/dLFT UA Auto SSLeukocyte esterase Auto test strip Ql (U)NegativeNormalNegativeLeu/uLFT UA Auto SSNitrite Auto test strip Ql (U) NegativeNormalNegativemg/dLFT UA Auto SSpH (U)5.0 *NA* (06/26/24 1:56 PM)Invalid Interpretation Code5.0 - 9.0[facility] UA Auto SSProtein Ql (U)Trace mg/dLInvalid Interpretation CodeNegativemg/dLST. [facility] UA Auto SSSpecific gravity (U) [Rel density]1.016 *NA* (06/26/24 1:56 PM)Invalid Interpretation Code1.005 - 1.030[facility] UA Auto SS Urobilinogen (U) [Mass/Vol]NegativeNormalNegativemg/dLST. JOHN [facility] UA Auto SSURINALYSIS Ordered By: Sheri Roberts on 81-09-8089KE Spec DescClean Catch (06/26/24 1:56 PM)NormalST. [facility] UA Auto SSeGFRon 77-81-4422yFQI20 mL/min/1.73 m2Low >=59Fisher [facility] CenterComment on above:Performed By: #### [id number] ####[facility] [address] [place] [address] Albumin [Mass/volume] in Serum or Plasmaon 39-65-9515Dftqckj [Mass/Vol]Albumin [Mass/volume] in Serum or Plasma2.9-4.4FOhioHealth Grady Memorial HospitalIgA [Mass/volume] in Serum or Plasmaon 00-90-1234ZhX [Mass/Vol]IgA [Mass/volume] in Serum or Wrtsun75-049RrjlehboeRegency Hospital ToledoIgG [Mass/volume] in Serum or Plasmaon 53-32-6615ZtL [Mass/Vol]IgG [Mass/volume] in Serum or Plasma 586-1602Regency Hospital ToledoIgM [Mass/volume] in Serum or Plasmaon 08-89-2240BlO [Mass/Vol]IgM [Mass/volume] in Serum or Adbvao41-517TqyfpqtcsRegency Hospital ToledoImmunofixation for Urineon 34-93-3343Xsbwkrmcuuwxkb Immunofixation (U) [Interp]Immunofixation for Urine.[facility] Hospital ToledoComment on above:No monoclonality detected.Performed at: - Lab[address] [id number] Director: Jozef Medina PhD, Phone: [phone] light chains.kappa.free [Mass/volume] in Serum on 49-49-4969Cvcumxdqvvsfgf light chains.kappa.free (S) [Mass/Vol]Immunoglobulin light chains.kappa.free [Mass/volume] in SerumAbnormal3.3-19.4Fire[facility] Regional Medical CenterImmunoglobulin light chains.kappa.free/Immunoglobulin light chains.lambda.free [Alexandra 12-63-5866Jsmitxmtdneuzt light chains.kappa.free/Immunoglobulin light chains.lambda.free (S) [Mass ratio] Immunoglobulin light chains.kappa.free/Immunoglobulin light chains.lambda.free [MassAbnormal0.26-1.65Regency Hospital ToledoComment on above: Performed at: [facility] [id number] Director: Jozef Medina PhD, Phone: [phone] light chains.lambda.free [Mass/volume] in Serum or Plasmaon 62-49-3141Jjxpuxmwrgnenr light chains.lambda.free [Mass/Vol]Immunoglobulin light chains.lambda.free [Mass/volume] in Serum or PlasmaAbnormal5.7-26.3FOhioHealth Grady Memorial HospitalIron binding capacity [Mass/volume] in Serum or Plasmaon 49-13-2080Klqj binding capacity [Mass/Vol]Iron binding capacity [Mass/volume] in Serum or SzjkcsVyq284.0-450.0[facility] Hospital ToledoIron saturation [Mass Fraction] in Serum or Plasmaon 52-78-2237Ufft saturation [Mass fraction]Iron saturation [Mass Fraction] in Serum or PlasmaRegency Hospital Toledo Laboratory - Chemistry and Chemistry - challengeon 30-52-6116Dgvzqlmr [Mass/Vol] 147.0 ng/mL8.0-252.0[facility] Hospital ToledoIron [Mass/Vol]51.0 ug/dL 50.0-170.0[facility] ToledoMagnesium [Mass/Vol]1.6 mg/dLLow 1.8-2.4FOhioHealth Grady Memorial HospitalUrate [Mass/Vol]8.0 mg/dLHigh2.6-6.0 [facility] ToledoLaboratory - Urinalysison 43-53-6094Rxlkvot (U) [Mass/Vol]30.4 mg/dLHigh<=11.9[facility] Hospital ToledoNo Panel Informationon 93-99-934576083964-Miexvgz Vitamin D Total37.9 ng/mLRegency Hospital ToledoComment on above:<20 ng/mL Vit D fhabcvbsr82-<30 ng/mL Vit D scktxsrfurdr69-155 ng/mL Vit D sufficient>100 ng/mL Potential Toxicity Parathyroid Hormone (Intact)43 pg/oB57-34PywdkpgrrRegency Hospital Toledo Comment on above:Performed at: [facility] [address] [id number] Director: Jozef Medina PhD, Phone: [phone] Level 3.7 mg/dL2.6-4.7FOhioHealth Grady Memorial HospitalProtein Electrophoresis M-Benjy Comment: g/dLNot ObservedRegency Hospital ToledoComment on above:SPE shows an asymmetrical gamma.Protein Electrophoresis NoteComment.[facility] Hospital ToledoComment on above:Protein electrophoresis scan will follow via computer,mail, or student loan counselor delivery.Urine Random Gzhtsggsic879.97 mg/dL 20.00-300.00[facility] Hospital ToledoProtein [Mass/volume] in Serum or Plasmaon 38-35-0720Jdohopt [Mass/Vol]Protein [Mass/volume] in Serum or Plasma 6.0-8.5FJoint Township District Memorial Hospitalerum globulin measurement (mass/volume) on 93-80-1576Gouxusem (S) [Mass/Vol]Serum globulin measurement (mass/volume) 2.2-3.9The Bellevue Hospitalerum or plasma albumin/globulin mass ratioon 23-92-2118Naybysr/Globulin [Mass ratio]Serum or plasma albumin/globulin mass ratio0.7-1.7FJoint Township District Memorial Hospitalerum or plasma alpha 1 globulin measurement by electrophoresis (mass/volume)on 36-99-6935Kxgtx 1 globulin Elph [Mass/Vol]Serum or plasma alpha 1 globulin measurement by electrophoresis (mass/volume)0.0-0.4FJoint Township District Memorial Hospitalerum or plasma alpha 2 globulin measurement by electrophoresis (mass/volume)on 86-04-9086Iypsy 2 globulin Elph [Mass/Vol]Serum or plasma alpha 2 globulin measurement by electrophoresis (mass/volume)0.4-1.0The Bellevue Hospitalerum or plasma beta globulin measurement by electrophoresis (mass/volume) on 97-88-4609Uefb globulin Elph [Mass/Vol]Serum or plasma beta globulin measurement by electrophoresis (mass/volume)0.7-1.3FJoint Township District Memorial Hospitalerum or plasma gamma globulin measurement by electrophoresis (mass/volume)on 57-61-7104Fmlbm globulin Elph [Mass/Vol]Serum or plasma gamma globulin measurement by electrophoresis (mass/volume)0.4-1.8The Bellevue Hospitalerum or plasma immunoelectrophoresis interpretationon 06-20-2024 Interpretation IEP [Interp]Serum or plasma immunoelectrophoresis interpretation. [facility] Hospital ToledoComment on above:Presence of monoclonal protein is unclear at this time. Suggestrepeat in 3 to 6 months if clinically indicated.Urine protein/creatinine ratioon 18-48-9747Cochbfm/Creatinine (U) [Ratio]Urine protein/creatinine ratioRegency Hospital ToledoUrology Office/Clinic Noteon 27-23-7523Pvxaujg Office/Clinic NoteUrology Office/Clinic Note Chief Complaint Cysto [...] for UCC. 4. 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 No BTs. Has pacemaker. Hx of MD but was asx, not sure when it happened. [3] Objective demonstration of stress urinary incontinence today on exam. We discussed with her that she would benefit from cystoscopy, Bulkamid injection. She will follow-up for the procedure. Follow-up With When Contact Information ROSETTA MENDEZ MD, SASKIA Additional Instructions: schedule Bulkamid Patient Education Jericho Peralta I, Elvi Posadas, personally scribed for Dr. Rosetta Mendez on 05/19/2024 09:01:12. . Portions of this record may have been created with voice recognition artificial intelligence software, specifically [employer], [employer] and or [employer]. Substitutions may have occurred due to the [...] nodules Pulmonary hypertension Spina (more content not included)...[facility] System GlenbeighComment on above:Result Comment: Electronically Signed By: ROSETTA MENDEZ MD\.br\Date and Time Signed: 05/19/24 09:40 EST\.br\Electronically Co- Signed By: Elvi Posadas\.br\Date and Time Co-Signed: 05/19/24 09:01 EST Office Visiton 28-19-3269Lbbuai-up [id number] Vero Sadler 1950 F Date Provider Department Center 05/09/2024 JOSEY ARNOLD [facility] Family History Problem Relation Age of Onset Other Mother Coronary artery disease Mother Other Mother Other Mother Other Father Hypertension Father Hyperlipidemia Father Other Daughter Family Status - Relation Status Age at Mother Father Daughter Level of Service:71987 [place] OFFICE/OUTPATIENT ESTABLISHED LOW MDM 20 [facility] HospitalXR Sinuses 3 Viewson 22-41-9795ZwvC[facility] [address] [place] [address] XRay Report Signed Patient: VERO SADLER MR#: [id number] : 1950 Acct:[id number] Age/Sex: 74 / F ADM Date: 05/09/24 Loc: RAD Attending Dr: John Mathews M.D. Ordering Physician: John Mathews M.D. Date of Service: 05/09/24 Procedure(s): XR sinus min 3V Accession Number(s): [id number] cc: Debbie Bhatia M.D.; John Mathews M.D. The [address] [address] Patient Name: VERO SADLER MRN: [id number] date: 1950 Sex: F Assigned Patient Location: RAD Current Patient Location: RAD Accession/Order Number: [id number] Exam Date: 05/09/2024 12:47 Report Date: 05/09/2024 [...] Kelly Lao M.D.05/09/2024 12:54 PM Dictation Location: [place] [address] Electronically authenticated by: [id number] Y Date: 05/09/2024 12:54 Dictated By: Kelly Lao M.D. Signed By: 05/09/24 1257 DD/ 1254 TD/TT: Excavating Contractor:LUIS MANUELadiology, Radiologist, - 05/09/[address] [address] XRay Report Signed Patient: VERO SADLER MR#: [id number] : 1950 Acct:[id number] Age/Sex: 74 / F ADM Date: 05/09/24 Loc: RAD Attending Dr: John Mathews M.D. Ordering Physician: oJhn Mathews M.D. Date of Service: 05/09/24 Procedure(s): XR sinus min 3V Accession Number(s): [id number] cc: Debbie Bhatia M.D.; John Mathews M.D. [place] [address] Patient Name: VERO SADLER MRN: [id number] date: 1950 Sex: F Assigned Patient Location: RAD Current Patient Location: RAD Accession/Order Number: [id number] Exam Date: 05/09/2024 12:47 Report Date: 05/09/2024 [...] Kelly Lao M.D.05/09/2024 12:54 PM Dictation Location: [place] [address] Electronically authenticated by: [id number] Y Date: 05/09/2024 12:54 Dictated By: Kelly Lao M.D. Signed By: 05/09/24 1257 DD/ 1254 TD/TT: Excavating Contractor: NOMKaykay HealthcareRadiology Study observation (narrative)NOMS HealthcareXR Sinuses 3 ViewsOrdered By: Radiologist Radiology on 13-87-5845KJKKPershing Memorial Hospital Work Phone: ambulatory Visit Summaryon 70-72-1613Trguzcaldx Visit SummaryAmbulatory Visit Summary VERO SADLER :1950 [...] You may receive a (more content not included)...[facility] GlenbeighUrology Office/Clinic Noteon 87-68-3384Thrxeok Office/Clinic NoteUrology Office/Clinic Note Chief Complaint New [...] gross hematuria. 4. Aspirin long-term use (Z79.82: snf (current) use of aspirin) ASA. No BTs. Has pacemaker. Hx of MD but was asx, not sure when it [...] with voice recognition artificial intelligence software, specifically [employer], [employer] and or [employer]. Substitutions may have occurred due to the [...] kidney disease due t (more content not included)...[facility] System GlenbeighComment on above:Result Comment: Electronically Signed By: ROSETTA MENDEZ MD\.br\Date and Time Signed: 03/31/24 15:13 EST\.br\Electronically Co-Signed By: Elvi Posadas\.br\Date and Time Co- Signed: 03/31/24 15:10 EST\.br\Electronically Co-Signed By: Elvi Posadas\.br\Date and Time Co-Signed: 03/31/24 15:10 ESTOffice Visiton 01-26-2024 Follow-up [id number] Vero Sadler 1950 F Date Provider Department Center 01/26/2024 [facility] Family History Problem Relation Age of Onset Other Mother Coronary artery disease Mother Other Mother Other Mother Other Father Hypertension Father Hyperlipidemia Father Other Daughter Family Status - Relation Status Age at Mother Father Daughter Level of Service:51851 [place] OFFICE/OUTPATIENT ESTABLISHED LOW MDM 20 [facility] HospitalMR LUMBAR SPINE WO CONTRASTon 68-13-6528CP LUMBAR SPINE WO CONTRASTMR LUMBAR SPINE WO [...] neural foraminal narrowing. Electronically signed: Arnol Cutler MD.[facility] Comment on above:Order Comment: ORDER IN EPICNURSNOTEon 80-19-3605OUUHWLFKMssdo from [employer] prepped pacemaker. Patient verbalizes no issues with device. Monitor hooked up for continuous patient monitoring throughout the scan. Doctors HospitalCBC AUTO DIFFon 19-61-6003RIFR #0.0 103/ulNormal0.0-0.1The [facility] CenterComment on above:Performed By: #### CBC #### [facility] [address] [place] [address] Dr. Eusebia MoralezBasophils/100 WBC (Bld)0.6 %Normal0.2-2.0[facility] Comment on above:Performed By: #### CBC #### [facility] [address] [place] [address] Dr. Eusebia Carlton #0.2 103/ulNormal0.0-0.7The [facility] CenterComment on above: Performed By: #### CBC #### [facility] [address] [place] [address] Dr. Eusebia Dunlaposinophils/100 WBC (Bld)2.2 %Normal0.9-7.0[facility] Comment on above:Performed By: #### CBC #### [facility] [address] [place] [address] Dr. Eusebia Dunlaprythrocyte distribution width (RBC) [Ratio]13.0 %Wombuy57.0-15.0 [facility] Ment[facility] HospitalComment on above:Performed By: #### CBC #### [facility] [address] [place] [address] Dr. Eusebia MoralezHematocrit (Bld) [Volume fraction]40.5 %Ulqvsm33.0-48.0[facility] Ment[facility] HospitalComment on above:Performed By: #### CBC #### [facility] [address] [place] [address] Dr. Eusebia MoralezHemoglobin (Bld) [Mass/Vol]12.7 g/pTDjktng39.0-16.0The [facility] CenterComment on above:Performed By: #### CBC #### [facility] [address] [place] [address] Dr. Eusebia Pagan #0.02 10e3/ulNormal0.00-0.03The [facility] CenterComment on above:Performed By: #### CBC #### [facility] [address] [place] [address] Dr. Eusebia Pagan %0.3 %Normal0.0-0.5The [facility] CenterComharbor oaks hospital on above: Performed By: #### CBC #### [facility] [address] [place] [address] Dr. Eusebia GreyYadira #1.4 103/ulNormal1.2-3.8The [facility] CenterComment on above:Performed By: #### CBC #### [facility] [address] [place] [address] Dr. Eusebia Downshocytes/100 WBC (Bld)19.9 %Critically low20.5-60.0The [facility] CenterComment on above:Performed By: #### CBC #### [facility] [address] [place] [address] Dr. Eusebia PattersonUAL DIFF REQNONormalThe [facility] CenterComment on above: Performed By: #### CBC #### [facility] [address] [place] [address] Dr. Eusebia Chun (RBC) [Entitic mass]29.1 gpVfgbcc01.7-34.0The [facility] CenterComment on above:Performed By: #### CBC #### [facility] [address] [place] [address] Dr. Eusebia Chun (RBC) [Mass/Vol]31.4 g/nCPrywbf88.9-35.2The [facility] CenterComment on above:Performed By: #### CBC #### [facility] [address] [place] [address] Dr. Eusebia Chun (RBC) [Entitic vol]92.9 iWIjtecj26.0-99.0The [facility] CenterComment on above:Performed By: #### CBC #### [facility] [address] [place] [address] [address] Eusebia Davis #0.7 103/ulNormal0.3-0.8The [facility] CenterComment on above:Performed By: #### CBC #### [facility] [address] [place] [address] Dr. Eusebia Fanocytes/100 WBC (Bld)9.4 %Normal1.7-12.0The [facility] Comment on above:Performed By: #### CBC #### [facility] [address] [place] [address] Dr. Eusebia Morin #4.7 103/ulNormal1.4-6.5The [facility] CenterComment on above:Performed By: #### CBC #### [facility] [address] [place] [address] Dr. Eusebia Mccormackutrophils/100 WBC (Bld)67.6 %Ijwxpf59.0-75.0The [facility] CenterComment on above:Performed By: #### CBC #### [facility] [address] [place] [address] Dr. Eusebia Hoyoslet mean volume (Bld) [Entitic vol]9.9 fLNormal9.5-13.5The [facility] CenterComment on above:Performed By: #### CBC #### [facility] [address] [place] [address] Dr. Eusebia MoralezPLT218 103/qaInlsjz889-537Xuq [facility] CenterComment on above: Performed By: #### CBC #### [facility] [address] [place] [address] Dr. Eusebia MoralezRBC4.36 106/ulNormal4.20-5.40The [facility] CenterComment on above:Performed By: #### CBC #### [facility] [address] [place] [address] Dr. Eusebia MoralezWBC6.9 103/ulNormal4.0-11.0The [facility] CenterComment on above: Performed By: #### CBC #### [facility] [address] [place] [address] [address] Eusebia MoralezPROF CHEM 8 (BAS METB)on 16-27-4701Ogwyx gap [Moles/Vol]9.0 mmol/LNormalThe [facility] CenterComment on above:Performed By: #### BMP #### [facility] [address] [place] [address] [address] Eusebia MoralezCalcium [Mass/Vol]9.2 mg/dLNormal8.5-10.1The [facility] Comment on above:Performed By: #### BMP #### [facility] [address] [place] [address] [address] Eusebia MoralezChloride [Moles/Vol]103 mmol/THsesja40-019YzmCleveland Clinic Mentor Hospital Comment on above:Performed By: #### BMP #### [facility] [address] [place] [address] Dr. Eusebia MoralezCO2 [Moles/Vol]32.9 mmol/LCritically high21.0-32.0The [facility] CenterComment on above:Performed By: #### BMP #### [facility] [address] [place] [address] Dr. Eusebia MoralezCreatinine [Mass/Vol]1.74 mg/dLCritically high0.55-1.02The [facility] CenterComment on above:Performed By: #### BMP #### [facility] [address] [place] [address] Dr. Laws ChangEGFR-AF HYJPYUUZ18 mL/min/1.88p0Ggkhyqakfq low>=60The [facility] CenterComment on above:Performed By: #### BMP #### [facility] [address] [place] [address] Dr. Eusebia DunlapGFR-NON AF WTZZHUDW41 mL/min/1.62c3Xftrndhsan low>=60The [facility] CenterComment on above:Performed By: #### BMP #### [facility] [address] [place] [address] Dr. Eusebia MoralezGlucose [Mass/Vol]101 mg/pOOhqvey02-470Rou [facility] Comment on above:Performed By: #### BMP #### [facility] [address] [place] [address] [address] Eusebia MoralezPotassium [Moles/Vol]3.9 mmol/LNormal3.5-5.1The [facility] Comment on above:Performed By: #### BMP #### [facility] [address] [place] [address] [address] Eusebia MoralezSodium [Moles/Vol]141 mmol/WUzxkey252-324Wwr [facility] Comment on above:Performed By: #### BMP #### [facility] [address] [place] [address] [address] Eusebia MoralezUrea nitrogen [Mass/Vol]34.0 mg/dLCritically high7.0-18.0The [facility] CenterComment on above:Performed By: #### BMP #### [facility] [address] [place] [address] [address] Eusebia MoralezUrea nitrogen/Creatinine [Mass ratio]19.5 mg/mgNormalThe [facility] CenterComment on above:Performed By: #### BMP #### [facility] [address] [place] [address] [address] Eusebia Klein AUTO DIFFon 32-58-3523OHBP #0.1 103/ulNormal0.0-0.1The [facility] CenterComment on above:Performed By: #### CBC ####[facility] [address] [place] [address]DrEsther MoralezBasophils/100 WBC (Bld)0.7 %Normal0.2-2.0The [facility] CenterComment on above:Performed By: #### CBC ####[facility] [address] [place] [address] ChangEO #0.1 103/ulNormal0.0-0.7The [facility] CenterComment on above:Performed By: #### CBC ####[facility] [address] [place] [address]DrEsther ChangEosinophils/100 WBC (Bld)1.8 %Normal 0.9-7.0The [facility] CenterComment on above:Performed By: #### CBC ####[facility] [address] [place], [place] [address]Dr.Eusebia Moralez Erythrocyte distribution width (RBC) [Ratio]13.1 %Lsvvys11.0-15.0The [facility] CenterComment on above:Performed By: #### CBC ####[facility] [address] [place], [place] [address]Dr.Eusebia MoralezHematocrit (Bld) [Volume fraction]40.2 %Ldlqxz31.0-48.0The [facility] CenterComment on above:Performed By: #### CBC ####[facility] I[address]aiuobc[address] [place], [place] [address]Dr.Eusebia MoralezHemoglobin (Bld) [Mass/Vol]12.5 g/dL Tjpzrb09.0-16.0The [facility] CenterComment on above:Performed By: #### CBC ####[facility] [address] [place], [place] [address]Dr. Eusebia MoralezIG #0.01 10e3/ulNormal0.00-0.03The [facility] CenterComment on above: Performed By: #### CBC ####[facility] E[address]yc[address] [place], [place] [address]Dr.Eusebia MoralezIG %0.1 %Normal0.0-0.5The [facility] Medical CenterComment on above:Performed By: #### CBC ####[facility] M[address]ueksfq[address] [place], [place] [address]Dr.Eusebia MoralezLYMPH #1.5 103/ulNormal1.2-3.8The [facility] CenterComment on above:Performed By: #### CBC ####[facility] Radzihqfcd[address] [place], [place] [address]Dr. Eusebia MoralezLymphocytes/100 WBC (Bld)22.6 %Pugeyb98.5-60.0The [facility] Comment on above:Performed By: #### CBC ####[facility] Tiyvpuprws[address] [place], [place] [address]Dr.Eusebia MoralezMANUAL DIFF REQNONormalThe [facility] CenterComment on above:Performed By: #### CBC ####[facility] Uvxazuemow[address] [place], [place] [address]Dr.Eusebia MoralezBROOKDALE UN[facility] (RBC) [Entitic mass]29.3 txOngxkq54.7-34.0The [facility] HospitalComment on above: Performed By: #### CBC ####[facility] Oqwsqyirel[address] [place], [place] [address]Dr.Eusebia MoralezKINGS COUNTY H[facility] (RBC) [Mass/Vol]31.1 g/dLNormal 29.9-35.2The [facility] HospitalComment on above:Performed By: #### CBC ####[facility] [address]xwbszsjaq[address] [place], [place] [address]Dr. Eusebia MoralezV (RBC) [Entitic vol]94.4 oXQgqfin56.0-99.0The [facility] Comment on above:Performed By: #### CBC ####[facility] [address]yqteuca[address] [place], [place] [address]Dr.Eusebia MoralezMONO #0.6 103/ulNormal0.3-0.8 The [facility] CenterComment on above:Performed By: #### CBC ####[facility] Gcjauckfmo[address] [place], [place] [address]Dr.Eusebia Moralez Monocytes/100 WBC (Bld)9.1 %Normal1.7-12.0The [facility] CenterComment on above: Performed By: #### CBC ####[facility] [address]tqhgbn[address] [place], [place] [address]Dr.Eusebia MoralezNEUT #4.4 103/ulNormal1.4-6.5The [facility] CenterComment on above:Performed By: #### CBC ####[facility] Msaymzyrpa[address] [place], [place] [address]Dr.Eusebia MoralezNeutrophils/100 WBC (Bld)65.7 %Wkaqxv35.0-75.0The [facility] CenterComment on above:Performed By: #### CBC ####[facility] [address] [place] [address]Dr.Eusebia ChangPlatelet mean volume (Bld) [Entitic vol]9.6 fLNormal9.5-13.5 The [facility] CenterComment on above:Performed By: #### CBC ####[facility] [address]klj[address]piu[address] [place], [place] [address]Dr.Lisalan BglhdPRR258 103/fxGiczow222-501Wxo [facility] CenterComment on above:Performed By: #### CBC ####[facility] Xolzdlycpd[address] [place], [place] [address]Dr. Lisalan ChangRBC4.26 106/ulNormal4.20-5.40The [facility] CenterComment on above: Performed By: #### CBC ####[facility] Mgcljlfjqy[address] [place], [place] [address]Dr.Eusebia ChangWBC6.7 103/ulNormal4.0-11.0The [facility] CenterComment on above:Performed By: #### CBC ####[facility] Leyuajukvf[address] [place], [place] [address]Dr.Eusebia ChangPROF CHEM 8 (BAS METB)on 97-23-9787Przvi gap [Moles/Vol]11.2 mmol/LNormalCleveland Clinic Mentor HospitalComment on above:Performed By: #### BMP ####[facility] Kryxzftqoc[address] [place], [place] [address]Dr.Eusebia ChangCalcium [Mass/Vol]9.2 mg/dLNormal8.5-10.1The [facility] CenterComment on above:Performed By: #### BMP ####[facility] Yctnopxqtr[address] [place], [place] [address]Dr.Yilan ChangChloride [Moles/Vol]109 mmol/LCritically hazv21-835Csw [facility] CenterComment on above:Performed By: #### BMP ####[facility] Ihflwbwsqn[address] [place], [place] [address]Dr.Yilan ChangCO2 [Moles/Vol] 27.6 mmol/REovpua28.0-32.0The [facility] CenterComment on above:Performed By: #### BMP ####[facility] [address] [place] [address]Dr.Yilan ChangCreatinine [Mass/Vol]1.49 mg/dLCritically high0.55-1.02The [facility] CenterComment on above:Performed By: #### BMP ####[facility] Iczsubgvq[address] [place], [place] [address]Dr.Yilan ChangEGFR-AF QDVSXSSN24 mL/min/1.75a5Tfvbkbiiuf low>=60The [facility] CenterComment on above: Performed By: #### BMP ####[facility] [address]fdfhq[address] [place], [place] [address]Dr.Yilan ChangEGFR-NON AF SZPAPZPZ13 mL/min/1.73m2 Critically low>=60The [facility] CenterComment on above:Performed By: #### BMP ####[facility] Svlchnnqos[address] [place], [place] [address]Dr. Yilan ChangGlucose [Mass/Vol]89 mg/tCPkgmel19-890Rpo [facility] CenterComment on above:Performed By: #### BMP ####[facility] Ataxwkaxxp[address] [place], [place] [address]Dr.Yilan ChangPotassium [Moles/Vol]4.8 mmol/LNormal 3.5-5.1The [facility] CenterComment on above:Performed By: #### BMP ####[facility] Center [address] [place], [place] [address]Dr.Yilan Moralez Sodium [Moles/Vol]143 mmol/FKcceqn750-695Mti [facility] Medical CenterComment on above: Performed By: #### BMP ####[facility] Texkq[address] [place], [place] [address]Dr.Yilan ChangUrea nitrogen [Mass/Vol]27.0 mg/dL Critically high7.0-18.0The [facility] Medical CenterComment on above:Performed By: #### BMP ####[facility] [address] [place], [place] [address]Dr. Yilan ChangUrea nitrogen/Creatinine [Mass ratio]18.1 mg/mgNormalThe [facility] Medical CenterComment on above:Performed By: #### BMP ####[facility] [address] [place], [place] [address]GgDr.Yilan Cobos LUNG CANCER SCREENINGon 89-92-7583NZ LUNG CANCER SCREENINGEXAMINATION: CT LUNG CANCER SCREENING [...] Electronically authenticated by: AMBAR MAYA Date: 2022-02-24 08:15NormalCleveland Clinic Mentor HospitalPROF CHEM 8 (BAS METB)on 05-15-0991Runcw gap [Moles/Vol]9.7 mmol/LNormalCleveland Clinic Mentor HospitalComment on above:Performed By: #### BMP #### [facility] [address] [place], [place] [address] Dr. Eusebia MoralezCalcium [Mass/Vol]8.8 mg/dLNormal8.5-10.1The [facility] Comment on above:Performed By: #### BMP #### [facility] [address] [place], [place] [address] Dr. Eusebia MoralezChloride [Moles/Vol]107 mmol/DKcjmtq75-935Pnb [facility] Comment on above:Performed By: #### BMP #### [facility] [address] [place] [address] [address] Eusebia MoralezCO2 [Moles/Vol]29.5 mmol/SUirfqj85.0-32.0The [facility] Comment on above:Performed By: #### BMP #### [facility] [address] [address] [address] Eusebia MoralezCreatinine [Mass/Vol]1.83 mg/dLCritically high0.55-1.02[facility] Mentor HospitalComment on above:Performed By: #### BMP #### [facility] [address] [address] [address] Eusebia Bush-AF DOIKDPTE90 mL/min/1.20t6Djhuabdvux low>=60The [facility] Medical CenterComment on above:Performed By: #### BMP #### [facility] [address] [address] [address] Eusebia Bush-NON AF AINXSKJG73 mL/min/1.52s8Mvndmmhziy low>=60The [facility] CenterComment on above:Performed By: #### BMP #### [facility] [address] [place] [address] Dr. Eusebia MoralezGlucose [Mass/Vol]87 mg/fAAdngnz00-282HtfCleveland Clinic Mentor Hospital Comment on above:Performed By: #### BMP #### [facility] [address] [address] [address] Eusebia MoralezPotassium [Moles/Vol]5.2 mmol/LCritically high3.5-5.1The [facility] Medical CenterComment on above:Performed By: #### BMP #### [facility] [address] [address] [address] Eusebia MoralezSodium [Moles/Vol]141 mmol/JDlclwa964-821Obt [facility] Comment on above:Performed By: #### BMP #### [facility] [address] [address] [address] Eusebia MoralezUrea nitrogen [Mass/Vol]37.0 mg/dLCritically high7.0-18.0[facility] Ment[facility] HospitalComment on above:Performed By: #### BMP #### [facility] [address] [address] [address] Eusebia MoralezUrea nitrogen/Creatinine [Mass ratio]20.2 mg/mgNormSt. Rita's HospitalComment on above:Performed By: #### BMP #### [facility] [id number] Eusebia MoralezNM STRESS/REST MULTIon 11-31-7340EP STRESS/REST MULTIPatient: VERO SALDER Exam Date: 01/23/2022 : 1950 Gender:F Ordering : DR DEBBIE BHATIA . Admission #: [id number] Family : Order #: [id number] CLICK HERE TO VIEW EXAM RADIOLOGY REPORT [...] by: Raji Canchola MD on 01/26/2022 at 13:45[facility] ECHOCARDIO M/2D COMPLETEon 99-22-3668NAQWNVUANM M/2D COMPLETEPatient: VERO SADLER Exam Date: 01/21/2022 : 1950 Gender:F Ordering : DR DEBBIE BHATIA . Admission #: [id number] Family : Order #: [id number] CLICK HERE TO VIEW EXAM ECHOCARDIOGRAM REPORT [...] by: Tato Salcido M.D. on 01/21/2022 at 09:17[facility] NorthXR DEXA BONE DENSITYon 73-83-3189ZX DEXA BONE DENSITYEXAMINATION: XR DEXA BONE DENSITY, [...] Electronically authenticated by: RAJI CANCHOLA Date: 2022-01-21 10:03NoMercy Health Willard HospitalBNPon 13-49-2633Dkoybkvwggj peptide B (Bld) [Mass/Vol]834.0 pg/mLNormal<=900.0The [facility] CenterComment on above:Performed By: #### TSH, BNP, CMP, T7, LIPID ####[facility] [address] [address]Dr. Eusebia SchaeferC AUTO DIFFon 83-70-9250ZUTP #0.0 103/ulNormal 0.0-0.1The [facility] Medical CenterComment on above:Performed By: #### CBC #### [facility] [address] [address] [address] Eusebia MoralezBasophils/100 WBC (Bld)0.4 %Normal0.2-2.0The [facility] Comment on above:Performed By: #### CBC #### [facility] [address] [address] [address] Eusebia Carlton #0.1 103/ulNormal0.0-0.7The [facility] Medical CenterComment on above: Performed By: #### CBC #### [facility] [address] [address] [address] Eusebia Dunlaposinophils/100 WBC (Bld)1.1 %Normal0.9-7.0The [facility] Comment on above:Performed By: #### CBC #### [facility] [address] [address] [address] Eusebia Dunlaprythrocyte distribution width (RBC) [Ratio]15.0 %Kxezxv63.0-15.0 The [facility] County Medical CenterComment on above:Performed By: #### CBC #### [facility] [address] [address] [address] Eusebia MoralezHematocrit (Bld) [Volume fraction]39.6 %Bcbamf77.0-48.0The [facility]zar HospitalComment on above:Performed By: #### CBC #### [facility] [address] [address] [address] Eusebia MoralezHemoglobin (Bld) [Mass/Vol]12.4 g/yAChkqdn05.0-16.0The [facility] Medical CenterComment on above:Performed By: #### CBC #### [facility] [address] [address] [address] Eusebia Pagan #0.02 10e3/ulNormal0.00-0.03The [facility] Medical CenterComment on above:Performed By: #### CBC #### [facility] [address] [place] [address] Dr. Eusebia Pagan %0.3 %Normal0.0-0.5The [facility] County Medical CenterComment on above: Performed By: #### CBC #### [facility] [address] [place] [address] Dr. Eusebia Lai #1.3 103/ulNormal1.2-3.8The [facility] County Medical CenterComment on above:Performed By: #### CBC #### [facility] [address] [address] [address] Eusebia Downshocytes/100 WBC (Bld)17.9 %Critically low20.5-60.0The [facility] – Jacksonment on above:Performed By: #### CBC #### [facility] [address] [place] [address] [address] Eusebia PattersonUAL DIFF REQNONormalThe [facility] County Medical CenterComment on above: Performed By: #### CBC #### [facility] [address] [address] [address] Eusebia Chun (RBC) [Entitic mass]29.8 eqOgcqww24.7-34.0The [facility] County Medical CenterComment on above:Performed By: #### CBC #### [facility] [address] [place] [address] Dr. Eusebia Chun (RBC) [Mass/Vol]31.3 g/rCJkfaxo21.9-35.2The [facility] Medical CenterComment on above:Performed By: #### CBC #### [facility] [address] [address] [address] Eusebia ChunV (RBC) [Entitic vol]95.2 mGSmdnnb98.0-99.0The [facility] Medical CenterComment on above:Performed By: #### CBC #### [facility] [address] [address] [address] Eusebia Davis #0.5 103/ulNormal0.3-0.8The [facility] Medical CenterComment on above:Performed By: #### CBC #### [facility] [address] [place] [address] Dr. Eusebia Fanocytes/100 WBC (Bld)7.0 %Normal1.7-12.0The [facility] Comment on above:Performed By: #### CBC #### [facility] [address] [place] [address] Dr. Eusebia Morin #5.2 103/ulNormal1.4-6.5The [facility] Medical CenterComment on above:Performed By: #### CBC #### [facility] [address] [place] [address] Dr. Eusebia Mccormackutrophils/100 WBC (Bld)73.3 %Wqryxw85.0-75.0The [facility] on above:Performed By: #### CBC #### [facility] [address] [place] [address] Dr. Eusebia Hoyoslet mean volume (Bld) [Entitic vol]9.5 fLNormal9.5-13.5The [facility] CenterComment on above:Performed By: #### CBC #### [facility] [address] [place] [address] Dr. Eusebia MoralezPLT188 103/czGmyjie716-322Ooq [facility] CenterComment on above: Performed By: #### CBC #### [facility] [address] [place] [address] Dr. Eusebia MoralezRBC4.16 106/ulCritically low4.20-5.40The [facility] Medical CenterComment on above:Performed By: #### CBC #### [facility] [address] [place] [address] [address] Eusebia MoralezWBC7.0 103/ulNormal4.0-11.0The [facility] on above: Performed By: #### CBC #### [facility] [address] [place] [address] [address] Eusebia Paul THYROXINE INDEX T7on 88-85-3314KPM3.17Hrcvhf5.30-4.50The [facility] on above:Performed By: #### TSH, BNP, CMP, T7, LIPID ####[facility] [address] [place] [address]Dr. Eusebia MoralezT3U35.0 %Lghvrz21.0-39.0The [facility] on above: Performed By: #### TSH, BNP, CMP, T7, LIPID ####[facility] [address] [place] [address]DrRadha MoralezT4 [Mass/Vol]7.00 ug/dLNormal 4.80-13.90The [facility] on above:Performed By: #### TSH, BNP, CMP, T7, LIPID ####[facility] [address] [place] [address]Dr. Eusebia MoralezIRONon 15-22-7787Zylp [Mass/Vol]58.0 ug/dLNormal 50.0-170.0The [facility] on above:Performed By: #### IRON #### [facility] [address] [place] [address] [address] Eusebia MoralezLIPID PROFILEon 37-15-2369TDWR-HDL RATIO NORMSRiverview Health Institute on above:Result Comment: 3.3 - 4.4 LOW RISK 4.4 - 7.1 AVERAGE RISK 7.1 - 11.0 MODERATE RISK >11.0 HIGH RISKPerformed By: #### TSH, BNP, CMP, T7, LIPID ####[facility] [address] [place] [address]Dr. Eusebia MoralezCholesterol [Mass/Vol]186 mg/dLNormal<=200[facility] Hospitalment on above:Performed By: #### TSH, BNP, CMP, T7, LIPID ####[facility] [address] [place] [address]Dr. Eusebia MoralezCholesterol in HDL [Mass/Vol]45 mg/oERvizef12-62YqoCleveland Clinic Mentor Hospital Comment on above:Performed By: #### TSH, BNP, CMP, T7, LIPID ####[facility] [address] [place] [address]Dr. Eusebia Moralez Cholesterol in LDL [Mass/Vol]118.4 mg/dLPremier Health Miami Valley Hospital NorthComment on above:Performed By: #### TSH, BNP, CMP, T7, LIPID ####[facility] [address] [place] [address]Dr. Eusebia Moralez Cholesterol.total/Cholesterol in HDL [Mass ratio]4.1 {ratio}NormalCleveland Clinic Mentor HospitalComharbor oaks hospital on above:Performed By: #### TSH, BNP, CMP, T7, LIPID ####[facility] [address] [place] [address]Dr. Eusebia ChangHDL NORMAL> or = 60 mg/dl - LOW CARDIOVASCULAR RISK <40 mg/dl - HIGH CARDIOVASCULAR RISKPremier Health Miami Valley Hospital NorthComharbor oaks hospital on above:Performed By: #### TSH, BNP, CMP, T7, LIPID ####[facility] [address] [place] [address]Dr. Eusebia ChangLDL CALC NORMALSEE BELOWPremier Health Miami Valley Hospital NorthComment on above:Result Comment: <100 mg/dl OPTIMAL 100 - 129 mg/dl NEAR OR ABOVE OPTIMAL 130 - 159 mg/dl BORDERLINE HIGH 160 - 189 mg/dl HIGH >190 mg/dl VERY HIGHPerformed By: #### TSH, BNP, CMP, T7, LIPID ####[facility] [address] [place] [address]Dr. Eusebia Moralez Triglyceride [Mass/Vol]113 mg/dLNormal<=150The [facility] Medical CenterComment on above:Performed By: #### TSH, BNP, CMP, T7, LIPID ####[facility] [address] [place] [address]Dr. Eusebia TylerLDL CALC22.6 mg/dLNormalThe [facility] Medical CenterComment on above:Performed By: #### TSH, BNP, CMP, T7, LIPID ####[facility] [address] [place] [address]Dr. Eusebia MoralezPROF 14(COMP METB)on 99-06-9886Qzyacii [Mass/Vol]3.3 g/dLCritically low3.4-5.0The [facility] Medical CenterComment on above:Performed By: #### TSH, BNP, CMP, T7, LIPID #### [facility] [address] [address] [address] Eusebia MoralezAlbumin/Globulin [Mass ratio]0.9 {ratio}NormalThe [facility] Medical CenterComment on above:Performed By: #### TSH, BNP, CMP, T7, LIPID #### [facility] [address] [place] [address] [address] Eusebia Priest [Catalytic activity/Vol]81 U/JYnwvgx97-868Qsh [facility] CenterComment on above:Performed By: #### TSH, BNP, CMP, T7, LIPID #### [facility] [address] [place] [address] [address] Eusebia Callejas [Catalytic activity/Vol]19 U/SCtcnrv29-36Bdv [facility] CenterComment on above:Performed By: #### TSH, BNP, CMP, T7, LIPID #### [facility] [address] [place] [address] [address] Eusebia Winston gap [Moles/Vol]12.3 mmol/LNormalThe [facility] Comment on above:Performed By: #### TSH, BNP, CMP, T7, LIPID #### [facility] [address] [place] [address] [address] Eusebia Umanzor [Catalytic activity/Vol]12 U/LCritically gdq45-68Lbp [facility] CenterComment on above:Performed By: #### TSH, BNP, CMP, T7, LIPID #### [facility] [address] [place] [address] Dr. Eusebia MoralezBilirubin [Mass/Vol]0.4 mg/dLNormal0.2-1.0The [facility] Comment on above:Performed By: #### TSH, BNP, CMP, T7, LIPID #### [facility] [address] [place] [address] Dr. Eusebia MoralezCalcium [Mass/Vol]8.9 mg/dLNormal8.5-10.1The [facility] Comment on above:Performed By: #### TSH, BNP, CMP, T7, LIPID #### [facility] [address] [place] [address] Dr. Eusebia MoralezChloride [Moles/Vol]106 mmol/YVjgzzl82-939Exd [facility] Comment on above:Performed By: #### TSH, BNP, CMP, T7, LIPID #### [facility] [address] [place] [address] Dr. Eusebia MoralezCO2 [Moles/Vol]27.4 mmol/JOjpdta72.0-32.0The [facility] Comment on above:Performed By: #### TSH, BNP, CMP, T7, LIPID #### [facility] [address] [place] [address] Dr. Eusebia MoralezCreatinine [Mass/Vol]1.51 mg/dLCritically high0.55-1.02The [facility] CenterComment on above:Performed By: #### TSH, BNP, CMP, T7, LIPID #### [facility] [address] [place] [address] Dr. Eusebia DunlapGFR-AF DUEVWJAP00 mL/min/1.72v6Gtmlbgnoma low>=60The [facility] CenterComment on above:Performed By: #### TSH, BNP, CMP, T7, LIPID #### [facility] [address] [place] [address] Dr. Eusebia DunlapGFR-NON AF FRQKFUAS40 mL/min/1.86s2Nhbdyinodm low>=60The [facility] CenterComment on above:Performed By: #### TSH, BNP, CMP, T7, LIPID #### [facility] [address] [address] [address] Eusebia MoralezGlobulin (S) [Mass/Vol]3.5 g/dLNoMercy Health Willard HospitalComment on above:Performed By: #### TSH, BNP, CMP, T7, LIPID #### [facility] [address] [address] [address] Eusebia MoralezGlucose [Mass/Vol]129 mg/dLCritically yacl37-288Ahk [facility] CenterComment on above:Performed By: #### TSH, BNP, CMP, T7, LIPID #### [facility] [address] [address] [address] Eusebia MoralezPotassium [Moles/Vol]4.7 mmol/LNormal3.5-5.1The [facility] Comment on above:Performed By: #### TSH, BNP, CMP, T7, LIPID #### [facility] [address] [place] [address] Dr. Eusebia MoralezProtein [Mass/Vol]6.8 g/dLNormal6.4-8.2The [facility] Comment on above:Performed By: #### TSH, BNP, CMP, T7, LIPID #### [facility] [address] [place] [address] Dr. Eusebia MoralezSodium [Moles/Vol]141 mmol/MOydcdx751-977Hwd [facility] Comment on above:Performed By: #### TSH, BNP, CMP, T7, LIPID #### [facility] [address] [place] [address] Dr. Eusebia MoralezUrea nitrogen [Mass/Vol]37.0 mg/dLCritically high7.0-18.0The [facility] CenterComment on above:Performed By: #### TSH, BNP, CMP, T7, LIPID #### [facility] [address] [place] [address] Dr. Eusebia Ortega nitrogen/Creatinine [Mass ratio]24.5 mg/mgNoMercy Health Willard HospitalComment on above:Performed By: #### TSH, BNP, CMP, T7, LIPID #### [facility] [address] [place] [address] Dr. Eusebia Vaca 91-80-7100CRF2.068 uIU/mLCritically low0.358-3.740The [facility] CenterComment on above:Performed By: #### TSH, BNP, CMP, T7, LIPID ####[facility] [address] [place], [place] [address]Cj. Eusebai MoralezCovid-19 PCR (CVDTB)on 74-71-1343ABQD-CoV-2 (COVID-19) RNA DEREK+probe Ql (Unsp spec)Not detectedNormalNOT DETECTEDThe [facility] CenterComment on above:Result Comment: This test is not yet approved or cleared by the [place] FDA. When there are no FDA-approved or cleared tests available, and other criteria are met, FDA can make tests available under an emergency access mechanism called an Emergency Use Authorization (EUA). The EUA for this test is supported by the [place] of Health and Human Service's (HHS's) declaration [...] symptoms consistent with SARS-CoV-2.Performed By: #### CVDTBH ####[facility] [address] [id number]. Eusebia Barreto LSPINE WO CONon 63-77-0695YRL LSPINE WO CONEXAMINATION: MRI LSPINE WO CON HISTORY: Lumbar radiculopathy ; chronic [...] Electronically authenticated by: AMBAR MAYA Date: 2021-10-10 07:29[facility] Pulmonary Progress Noteon 39-03-9476IFA [facility]ST[facility] Pt Name: VERO SADLER [address] [place] [address] MR#: [id number] [place] [address] ACCT: [id number] PROGRESS NOTE- Pulmonary : [facility] Date of Service: 09/13/20 Text NAME: VERO SADLER MR#: [id number] DATE OF SERVICE: 09/13/2020 OUTPATIENT PULMONARY PROGRESS [...] disease, severity unknown. We will try to [facility] Pt Name: VERO SADLER [address] [place] [address] MR#: [id number] [place] [address] ACCT: [id number] PROGRESS NOTE- Pulmonary : [facility] [...] postoperative management if needed. TIM TOSCANO MD DI/MODL/976976/[id number] CC: Dr. Rito Guerrero MD eSign Date and Time Tim Toscano MD Signature on File 09/26/[address]St[address] Vencor HospitalGLYCO HEMOon 85-60-8224CkI6z (Bld) [Mass fraction]5.3 %NormalSt. Vencor HospitalComment on above:Result Comment: Suggested Diagnosis HbA1c (%) --------- Diabetic > 6.4 Prediabetes 5.7-6.4 Normal < 5.7Performed By: #### L500.62402 #### Test performed at: [address] [address]PTH W/DIFFon 89-99-2322WMZG ABS0.0 K/uLNormal0.0-0.2St. [facility] HospitalComment on above:Performed By: #### L200.80758 #### Test performed at: [address] [address]Raszibjyn/100 WBC (Bld)0.5 %NormalSt. Vencor HospitalComment on above:Performed By: #### L200.55522 #### Test performed at: [address] [address]TGZ ABS0.1 K/uLNormal0.0-0.5St. [facility]enc[facility] HospitalComment on above:Performed By: #### L200.88701 #### Test performed at: [address] [address]Awlkpbhildh/100 WBC (Bld)1.2 %NormalSt. Vencor HospitalComment on above:Performed By: #### L200.81094 #### Test performed at: [address] [address]Czjjgkkxvbi distribution width (RBC) [Ratio]12.8 %Normal 11.5-14.5St. [facility]enc[facility] HospitalComment on above:Performed By: #### L200.75976 #### Test performed at: [address] [address]Iordtwjriw (Bld) [Volume fraction]40.1 %Yptcpf33.0-48.0St. [facility]enc[facility] HospitalComment on above:Performed By: #### L200.60122 #### Test performed at: [address] [address]Ifhzpygwqd (Bld) [Mass/Vol]12.4 g/jZAeaxxh35.0-15.0St. [facility] HospitalComment on above:Performed By: #### L200.44928 #### Test performed at: [address] [address]QG %0.3 %NormalSt. Vencor HospitalComment on above:Performed By: #### L200.89378 #### Test performed at: [address] [address]YJ ABS0.02 K/uLNormal0-0.05St. [facility] HospitalComment on above:Performed By: #### L200.56608 #### Test performed at: [address] [address]Wousfubkisf (Bld) [#/Vol]1.3 10*3/uLNormal1.2-3.5St. [facility]enc[facility] HospitalComment on above:Performed By: #### L200.97829 #### Test performed at: [address] [place] [address]Drvxnhzmint/100 WBC (Bld)16.9 %NormalSt. Vencor HospitalComment on above:Performed By: #### L200.50602 #### Test performed at: [address] [address]JYY (RBC) [Entitic mass]29.0 qrAnrhqq51.4-34.6St. [facility]enc[facility] HospitalComment on above:Performed By: #### L200.89411 #### Test performed at: [address] [address]GFAJ (RBC) [Mass/Vol]30.9 g/dLLow31.5-36.5St. [facility]enc[facility] HospitalComment on above:Performed By: #### L200.63082 #### Test performed at: [address] [address]WAS (RBC) [Entitic vol]93.7 rNKgwenl49.0-98.0St. [facility] HospitalComment on above:Performed By: #### L200.77281 #### Test performed at: [address] [address]AYSQ ABS0.8 K/uLNormal0.0-1.0St. [facility]enc[facility] HospitalComment on above:Performed By: #### L200.17128 #### Test performed at: [address] [address]Knlwytfjh/100 WBC (Bld)9.7 %NormalSt. Vencor HospitalComment on above:Performed By: #### L200.79400 #### Test performed at: [address] [address]JTFMQHGVXW ABS5.5 K/uLNormal1.4-6.6St. [facility]enc[facility] HospitalComment on above:Performed By: #### L200.81373 #### Test performed at: [address] [address]Pjejdynamrb/100 WBC (Bld)71.4 %NormalSt. Vencor HospitalComment on above:Performed By: #### L200.87289 #### Test performed at: [address] [address]LQIC #0.000 K/uLNormal0-0.012St. [facility]enc[facility] HospitalComment on above:Performed By: #### L200.55978 #### Test performed at: [address] [address]HSZA %0.0 /100 WBCNormal0-0.2St. [facility]enc[facility] HospitalComment on above:Performed By: #### L200.92463 #### Test performed at: [address] [address]Uykyhict mean volume (Bld) [Entitic vol]10.1 fLNormal 8.7-12.4St. [facility]enc[facility] HospitalComment on above:Performed By: #### L200.28674 #### Test performed at: [address] [address]Gzqjpevdv (Bld) [#/Vol]236 10*3/qTUpxlnv148-348Ox. Vencor HospitalComment on above:Performed By: #### L200.29000 #### Test performed at: [address] [address]DMS (Bld) [#/Vol]4.28 10*6/uLNormal3.5-5.5St. [facility]enc[facility] HospitalComment on above:Performed By: #### L200.47662 #### Test performed at: [address] [address]DNH (Bld) [#/Vol]7.7 10*3/uLNormal3.9-11.0St. [facility] HospitalComment on above:Performed By: #### L200.04721 #### Test performed at: [address] [address]QZYFL PA/AP & LATERAL OR 2 VWSon 38-87-0649UTUWW PA/AP & LATERAL OR 2 VWSSTUDY: CHEST PA/AP LATERAL OR 2 VWS; 08/22/2020 2:35 pm INDICATION: COPD. COMPARISON: None. ACCESSION NUMBER(S): [id number] ORDERING CLINICIAN: Ovidio Baez FINDINGS: The lungs are clear without pleural effusion. Borderline cardiomegaly. Otherwise unremarkable mediastinum, eron, and pulmonary vasculature. Thoracic degenerative changes are present. IMPRESSION: No active disease in the chest.NormalSt. Vencor HospitalCOMP META PANELon 74-19-8427Vymechn [Mass/Vol]3.4 g/dLNormal3.4-5.0St. [facility]enc[facility] HospitalComment on above:Performed By: #### L500.22664, L500.04938, L500.97058 #### Test performed at: [address] [address]ILW PHOS TOTAL88 U/NDduezr08-640Ln. Vencor HospitalComment on above:Performed By: #### L500.88978, L500.78738, L500.88674 #### Test performed at: [address] [address]TMC [Catalytic activity/Vol]17 U/EDjoesz50-23Jb. [facility]enc[facility] HospitalComment on above:Performed By: #### L500.44843, L500.41182, L500.06113 #### Test performed at: [address] [address]ISM [Catalytic activity/Vol]12 U/JEwz24-63Yp. [facility]encor HospitalComment on above:Performed By: #### L500.03686, L500.20324, L500.27973 #### Test performed at: [address] [address]BFSS TOTAL0.5 mg/dLNormal0.2-1.0St. Vencor HospitalComment on above:Performed By: #### L500.06778, L500.31778, L500.77677 #### Test performed at: [address] [address]Jwidqdz [Mass/Vol]9.0 mg/dLNormal8.5-10.1St. Vencor HospitalComment on above:Performed By: #### L500.42799, L500.60653, L500.76367 #### Test performed at: [address] [address]Vlclrzqf [Moles/Vol]107 mmol/DHkpour24-507Me. [facility]encor HospitalComment on above:Performed By: #### L500.44491, L500.43174, L500.32625 #### Test performed at: [address] [address]LK3 [Moles/Vol]29 mmol/ABbznnl81-12Uo. [facility]encor HospitalComment on above:Performed By: #### L500.44326, L500.45200, L500.10930 #### Test performed at: [address] [address]Spdhfyieff [Mass/Vol]1.280 mg/dLHigh0.550-1.020St. Vencor HospitalComment on above:Performed By: #### L500.15398, L500.75835, L500.64815 #### Test performed at: [address] [address]Hrybyux [Mass/Vol]90 mg/rQNdmrmm77-66Pp. Vencor HospitalComment on above:Result Comment: Fasting GLUCOSE reference range has been updated per (ADA) [place] [employer]'s recommendation. 06/07/2018Performed By: #### L500.00219, L500.72129, L500.30218 #### Test performed at: [address] [address]Asvxnshom [Moles/Vol]4.4 mmol/LNormal3.5-5.1St. Vencor HospitalComment on above:Performed By: #### L500.18906, L500.10801, L500.94286 #### Test performed at: [address] [address]Guxmnsb [Mass/Vol]6.8 g/dLNormal6.4-8.2St. [facility]encor HospitalComment on above:Performed By: #### L500.26723, L500.93440, L500.33233 #### Test performed at: [address] [address]Sgzmie [Moles/Vol]142 mmol/NLdzmvp814-017Uv. Vencor HospitalComment on above:Performed By: #### L500.37950, L500.72086, L500.02741 #### Test performed at: [address] [address]Xmmx nitrogen [Mass/Vol]21 mg/dLHigh7-18St. Vencor HospitalComment on above:Performed By: #### L500.35586, L500.13654, L500.82258 #### Test performed at: [address] [address]TBW ESTIMATEon 29-00-7737VM EFCT58Yap> 60St. Vencor HospitalComment on above:Result Comment: eGFR (Estimated GFR) Units of measure:mL/min/1.73 meters sq. *CALCULATION REVISED 01/01/2015;IDMS-traceable MDRD equation eGFR is derived from the reexpressed MDRD Study equation using the following parameters: serum creatinine, age, gender and race. An eGFR<60 mL/min/1.73m2 for >3 months is consistent with chronic kidney disease. Refer to KDOQI guidelines for clinical interpretation.Performed By: #### L500.93429, L500.38630, L500.66786 #### Test performed at: [address] [address]QU non-AFR SILS81Etx> 60[facility] Comment on above:Performed By: #### L500.39322, L500.52405, L500.35293 #### Test performed at: [address] [address]FLV ULTRA SENSon 23-08-4310NJE ULTRA SENS< 0.005Low 0.358-3.74St. Vencor HospitalComment on above:Performed By: #### L500.58649, L500.76475, L500.69420 #### Test performed at: [address] [address]BODY SP COMP W FLEX/EXT 6 VWSon 66-08-3767QDJL SP COMP W FLEX/EXT 6 VWSSTUDY: LUMB SP COMP W FLEX/EXT 6 VWS ; 07/23/2020 9:01 am INDICATION: PAIN. COMPARISON: None. ACCESSION NUMBER(S): [id number] ORDERING CLINICIAN: Sacha Guerrero FINDINGS: No fracture [...] changes of the lumbar spine without instability.NormalSt. [facility] Hospital Vital Signs Date TimeVital SignValuePerforming ZjxalohnjVrgjdctn53-66-7235 09:10-0500 Diastolic blood vowirbkd94 mm[Hg]Debbie Bhatia MD Work Phone: 1(709)[facility]-[address] [place], [place] [address]4711-10-2025 09:10-0500 Heart rate78 /Ivon Bhatia MD Work Phone: 1(015)[address] [place], [place] 9701611-10-2025 09:10-0500 Respiratory rate16 /Ivon Bhatia MD Work Phone: 1(782)[address] [place], [place] 9701611-10-2025 09:10-0500 SaO2% (BldA) [Mass fraction]98 %Debbie Bhatia MD Work Phone: 1(522)[address] [place], [place] 9701611-10-2025 09:10-0500 Systolic blood zzasvegw508 mm[Hg]Debbie Bhatia MD Work Phone: 1(018)[address] [place], [place] 9701611-10-2025 07:39-0500 Body pkquxq302.1 cmDosissy Bhatia MD Work Phone: 1(637)[address] [place], [place] 9701611-10-2025 07:39-0500 Body ckzgiv275.27 kgDebbie Bhatia MD Work Phone: 1(949)[address] [place], [place] 9701609-23-2025 10:45-0400 Body .6 cmJohn Mathews MD Work Phone: 1(201)[address] [place], [place] [address] HospitalJpqvlmavji36-63-7703 10:45-0400Body mass index (BMI) [Ratio]47.2 kg/y2KwhqmrJohn Mathews MD Work Phone: 1(052)458-[facility] HospitalQkwhwvwkpf71-49-0187 10:45-0400Body gzwcux462.74 kgJohn Mathews MD Work Phone: 1(017)506-[facility]4[place] [address]Cmzqatcnuz59-09-3781 10:45-0400Diastolic blood atpyrfad20 mm[Hg]John Mathews MD Work Phone: 1(498)321-[facility] HospitalTppdmefamj61-79-3773 10:45-0400Heart rate75 /min John Mathews MD Work Phone: [place] [address]Ztspygrcoj43-66-6401 10:45-0400Systolic blood mm[Hg]John Mathews MD Work Phone: [facility] HospitalAqbaleutnk83-25-5611 11:07-0400Body esbnem230.56 cmDebbie Bhatia MD Work Phone: 1(347)[address] [place], [place] 9701607-24-2025 11:07-0400 Body mass index (BMI) [Ratio]49.8 kg/q5WdvpxolDebbie Bhatia MD Work Phone: 1(369)[address] [place], [place] 9701607-24-2025 11:07-0400 Body vrgjdu333.54 kgDebbie Bhatia MD Work Phone: 1(887)[address] [place], [place] 9701607-24-2025 11:07-0400 Diastolic blood nimwocuk70 mm[Hg]Debbie Bhatia MD Work Phone: 1(382)[address] [place], [place] 9701607-24-2025 11:07-0400 Heart rate79 /Ivon Bhatia MD Work Phone: 1(638)[address] [place], [place] 9701607-24-2025 11:07-0400 Respiratory rate16 /Ivon Bhatia MD Work Phone: 1(170)[address] [place], [place] 9701607-24-2025 11:07-0400 SaO2% (BldA) [Mass fraction]97 %Debbie Bhatia MD Work Phone: 1(226)[address] [place], [place] 9701607-24-2025 11:07-0400 Systolic blood wqkiqvor756 mm[Hg]Debbie Bhatia MD Work Phone: 1(782)[address] [place], [place] 9701606-30-2025 13:21-0400 Body brtimh935.6 William Mathews MD Work Phone: [phone])581[facility] HospitalTrgqnikzil29-77-7667 13:21-0400Body mass index (BMI) [Ratio]50.46 kg/l6QlhkwbJohn Mathews MD Work Phone: 1(331)313-[facility] HospitalUdjwygembm28-85-6572 13:21-0400Body hvqsex973.36 kgJohn Mathews MD Work Phone: 1(898)288-[facility] HospitalIiksrktncd05-07-8441 13:21-0400Diastolic blood mm[Hg]John Mathews MD Work Phone: 1(791)[address] [place], [place] 3712806-30-2025 13:21-0400Heart rate84 /min John Mathews MD Work Phone: 1(521)[address] [place], [place] 3712806-30-2025 13:21-0400Systolic blood vvgrautu986 mm[Hg]John Mathews MD Work Phone: 1(500)[address] [place], [place] 3712805-28-2025 09:39-0400Body qmoggt439.6 cmJohn Mathews MD Work Phone: 1(983)[address] [place], [place] 3712805-28-2025 09:39-0400Body mass index (BMI) [Ratio]50.46 kg/d7UnpeffJohn Mathews MD Work Phone: 1(588)[address] [place], [place] 3712805-28-2025 09:39-0400Body iknjvb646.36 kgJohn Mathews MD Work Phone: 1(146)[address] [place], [place] 3712805-28-2025 09:39-0400Diastolic blood qqtfrdyr22 mm[Hg]John Mathews MD Work Phone: 1(780)[address] [place], [place] 3712805-28-2025 09:39-0400Heart rate80 /min John Mathews MD Work Phone: 1(204)[address] [place], [place] 3712805-28-2025 09:39-0400Systolic blood lvexwwit648 mm[Hg]John Mathews MD Work Phone: 1(277)[address] [place], [place] 3712805-07-2025 14:20-0400Diastolic blood scxkiond27 mm[Hg]Debbie Bhatia MD Work Phone: 1(989)578-[address] [place], [place] 8474705-07-2025 14:20-0400 Heart rate67 /Ivon Bhatia MD Work Phone: [facility]05-07-2025 14:20-0400 Respiratory rate18 /Ivon Bhatia MD Work Phone: 1(301)227-[address] [place], [place] 8474705-07-2025 14:20-0400 SaO2% (BldA) [Mass fraction]98 %Debbie Bhatia MD Work Phone: [facility]05-07-2025 14:20-0400 Systolic blood mwuimcyh646 mm[Hg]Debbie Bhatia MD Work Phone: [facility]05-07-2025 11:23-0400 Body ianazr329.56 cmDebbie Bhatia MD Work Phone: [facility]05-07-2025 11:23-0400 Body ezzkra990.81 kgDebbie Bhatia MD Work Phone: 1(964)396-[address] [place], [place] 8474705-01-2025 10:50-0400 Blood Pressure LocationKWABENA NKANSAH-AMANKRA [address] [place], [place] 1110605-01-2025 10:50-0400 Diastolic blood gmwwrxyr28 mm[Hg]ROSETTA NKANSAH-AMANKRA [facility]05-01-2025 10:50-0400Heart rate74 /minKWABENA NKANSAH-AMANKRA [facility]05-01-2025 10:50-0591DpD7% (BldA) [Mass fraction]94 %ROSETTA NKANSAH-AMANKRA [facility]05-01-2025 10:50-0400 Systolic blood bnxtbesb320 mm[Hg]ROSETTA NKANSAH-AMANKRA [facility]05-01-2025 09:45-0400Blood Pressure LocationKWABENA NKANSAH-AMANKRA [facility]05-01-2025 09:45-0400Body nfckknkjaks45.34 [degF]ROSETTA NKANSAH-AMANKRA [facility]05-01-2025 09:45-0400 Diastolic blood gpyfsoez42 mm[Hg]ROSETTA NKANSAH-AMANKRA [facility]05-01-2025 09:45-0400Heart rate67 /minKWABENA NKANSAH-AMANKRA [facility]05-01-2025 09:45-0400Mean blood rcnbxuou033 mm[Hg]ROSETTA NKANSAH-AMANKRA [facility]05-01-2025 09:45-0400 Respiratory rate13 /minKWABENA NKANSAH-AMANKRA [facility]05-01-2025 09:45-2398OyP1% (BldA) [Mass fraction]93 %ROSETTA NKANSAH-AMANKRA [facility]05-01-2025 09:45-0400 Systolic blood mm[Hg]ROSETTA NKANSAH-AMANKRA [facility]05-01-2025 09:44-8888HkE8% (BldA) [Mass fraction]91 %ROSETTA NKANSAH-AMANKRA [facility]05-01-2025 09:30-0400 Respiratory rate13 /minKWABENA NKANSAH-AMANKRA [facility]05-01-2025 09:30-0400Heart rate68 /minKWABENA NKANSAH-AMANKRA [facility]05-01-2025 09:30-0400Blood Pressure LocationKWABENA NKANSAH-AMANKRA [facility]05-01-2025 09:30-0400 Diastolic blood tqpympzj83 mm[Hg]ROSETTA NKANSAH-AMANKRA [address] [place], [place] 1110605-01-2025 09:30-0400Mean blood ujezzlca91 mm[Hg]ROSETTA NKANSAH-AMANKRA [address] [place], [place] 1110605-01-2025 09:30-0400 Systolic blood yxbwapie198 mm[Hg]ROSETTA NKANSAH-AMANKRA [address] [place], [place] 1110605-01-2025 09:25-0400 Respiratory rate18 /minKWABENA NKANSAH-AMANKRA [address] [place], [place] 1110605-01-2025 09:25-0400Mean blood mm[Hg]ROSETTA NKANSAH-AMANKRA [address] [place], [place] 1110605-01-2025 09:20-0400 Respiratory rate12 /minKWABENA NKANSAH-AMANKRA [address] [place], [place] 1110605-01-2025 09:15-0400Body ztrlowptqms43.16 [degF]ROSETTA NKANSAH-AMANKRA [address] [place], [place] 1110605-01-2025 09:15-0400 Respiratory rate12 /minKWABENA NKANSAH-AMANKRA [address] [place], [place] 1110605-01-2025 07:27-0400Mean blood mm[Hg]ROESTTA NKANSAH-AMANKRA [address] [place], [place] 1110605-01-2025 07:26-0400Mean blood vgzblzny908 mm[Hg]ROSETTA NKANSAH-AMANKRA [address] [place], [place] 1110605-01-2025 07:24-0400 Respiratory rate20 /minKWABENA NKANSAH-AMANKRA [address] [place], [place] 1110605-01-2025 07:24-0400Body htaykkphfye70.7 [degF]ROSETTA NKANSAH-AMANKRA [facility]04-15-2025 11:14-0400Body lgkoba162.02 cm[facility]04-15-2025 11:14-0400Body mass index (BMI) [Ratio]53 kg/y8KfsfuhaqnRegency Hospital [facility]04-15-2025 11:14-0400Body craklhhziqr46.6 [degF][facility]04-15-2025 11:14-0400Body .79 kgRegency Hospital [facility]04-15-2025 11:14-0400Diastolic blood btdousga16 mm[Hg][facility] 06-27-2024 11:14-0400Heart eefe538 /[facility] 06-27-2024 11:14-0400Respiratory rate18 /[facility] 06-27-2024 11:14-9826EtQ6% (BldA) [Mass fraction]93 %[facility]04-15-2025 11:14-0400Systolic blood ocolfuom743 mm[Hg][facility]04-14-2025 13:31-0400Heart rate67 /Efraín DESAI-AMANKRA [facility]04-14-2025 13:31-6604NiK8% (BldA) [Mass fraction]94 %ROSETTA DESAI-AMANKRA [facility]04-14-2025 13:30-0400 Respiratory rate20 /TaneshaNA ROBBANSAH-AMANKRA [facility]04-08-2025 09:36-0400Body .6 cmJohn Mathews MD Work Phone: [facility] HospitalXryjjsficq14-21-4832 09:36-0400Body mass index (BMI) [Ratio]50.46 kg/t6HnmhahJohn Mathews MD Work Phone: [facility] HospitalIuniglpljb11-99-2356 09:36-0400Body .36 kgJohn Mathews MD Work Phone: 1(659)[address] [place], [place] 3712804-08-2025 09:36-0400Diastolic blood xucioynq54 mm[Hg]John Mathews MD Work Phone: 1(981)[address] [place], [place] 3712804-08-2025 09:36-0400Systolic blood bfxsfhju529 mm[Hg]John Mathews MD Work Phone: 1(093)[address] [place], [place] 3712802-25-2025 08:38-0500Body rctpiv030.6 cmJohn Mathews MD Work Phone: 1(387)[address] [place], [place] 3712802-25-2025 08:38-0500Body mass index (BMI) [Ratio]50.81 kg/u0McusabJohn Mathews MD Work Phone: 1(893)[address] [place], [place] 3712802-25-2025 08:38-0500Body ywcqcw889.26 kgJohn Mathews MD Work Phone: 1(934)[address] [place], [place] 3712802-25-2025 08:38-0500Diastolic blood ihbgsupz53 mm[Hg]John Mathews MD Work Phone: 1(232)[address] [place], [place] 3712802-25-2025 08:38-0500Heart rate87 /min John Mathews MD Work Phone: 1(637)[address] [place], [place] 3712802-25-2025 08:38-0500Systolic blood uqrzqyup139 mm[Hg]John Mathews MD Work Phone: 1(300)[address] [place], [place] 3712801-17-2025 14:50-0500Blood Pressure LocationKCARMEN DESAI-ANDREEAANK [facility]01-17-2025 14:50-0500Diastolic blood mhwcpwaw14 mm[Hg]ROSETTA DESAI-AMANK [facility]01-17-2025 14:50-0500Heart rate86 /minKCARMEN DESAI-AMANKRA [facility]01-17-2025 14:50-0500Respiratory rate16 /Efraín MENDEZ [facility]01-17-2025 14:50-0500Systolic blood ocuqyjzp188 mm[Hg]ROSETTA MENDEZ [facility] [place] 946110-24-2024 13:02-0400Body ecrlcf832.56 cmReg[facility]10-24-2024 13:02-0400Body mass index (BMI) [Ratio]50.5 kg/b3GktfagocrRegency Hospital [facility]10-24-2024 13:02-0400Body nlvfxvnvnyh66.3 [degF][facility]10-24-2024 13:02-0400Body nqsnin774.46 kgRegency Hospital [facility]10-24-2024 13:02-0400Diastolic blood mghyufzy86 mm[Hg] [facility]10-24-2024 13:02-0400Heart rate81 /[facility]10-24-2024 13:02-0400Respiratory rate18 /[facility]10-24-2024 13:02-0447AnT1% (BldA) [Mass fraction]98 % [facility]10-24-2024 13:02-0400Systolic blood bjjiycwu333 mm[Hg][facility] Encounters Encounter DateEncounter TypeCare ProviderFacilityStart: 52-72-2191rzqqrxpmtqEP ROSETTA DESAIDEBORAHFacility:EU [place]walkStart: 01-22-2025 End: 85-08-5008ctfmhgrfbrDsng TracyFacility:[facility] Start: 12-12-9228Htv-patient / Non-visitImad Tracy BELTR[facility]N-[facility] Work Phone: Start: 12-05-2024 End: 75-65-5608Ycqqwmrashad Mathews MD Work Phone: noms [facility] OtolaryngologyStart: 12-05-2024 End: 72-84-8047Luirftrashad Mathews MD Work Phone: noms [facility]avier OtolaryngologyStart: 12-05-2024 End: 51-91-4613Bjbbjy outpatient visit 25 minutesJohn Mathews MD Work Phone: noms [place]avier OtolaryngologyComment on above:Acute URI (Primary Dx); ETD (Eustachian tube dysfunction), rightStart: 12-05-2024 End: 17-68-4062klylyxmffpJKKHKP H TIMMISNot AvailableStart: 15-01-7624phpsbiyljr JOSEY [facility]: 10-24-2024 End: 60-03-5953qjerorrsgkWQGY [facility]art: 10-23-2024 End: 43-76-7111bucrezmdgwXyjomzz Vytautas Giedraitis MDFacility:[facility] Start: 10-16-2024 End: 25-95-2453uyrxrwjsxzJcruoji Vytautas Giedraitis Facility:[facility] Start: 10-05-2024 End: 84-03-8177jlsfcftgdeXpwcqcl M Hoy MD Work Phone: [facility] Work Phone: Start: 10-05-2024 End: 07-15-6081Ryqivlv encounter procedureLizette Schaffer MD-[facility] Work Phone: Start: 09-25-2024 End: 42-77-8446eogyreogapOaisybj Vytautas Gijunaid BELTRÁNFacility:PM [place] Start: 09-22-2024 End: 65-76-2554Crtiane encounter procedureLizette Schaffer MD-[facility] Work Phone: Start: 09-22-2024 End: 65-92-5378ptkdnrcczrYoudwdn M Hoy MD Work Phone: [facility] Work Phone: Start: 09-11-2024 End: 72-74-6025Niwdhm Tom Mathews MD Work Phone: noms CI ENTStart: 09-11-2024 End: 58-96-4433Ubrtph flowsheetJohn Mathews MD Work Phone: noms CI ENTStart: 09-11-2024 End: 94-23-8120Ltxvaq outpatient visit 15 minutesJohn Mathews MD Work Phone: noms CI ENTComment on above:ETD (Eustachian tube dysfunction), right (Primary Dx); Chronic mastoiditis, rightStart: 09-11-2024 End: 51-41-1638rpksrrqkxyYSFEXK H TIMMISNot AvailableStart: 08-25-2024 End: 50-16-6755hcrfjdckbgMFETBOY [facility]tart: 86-25-9890fpczqwlbogHSOR [facility] Centertart: 40-12-9230iftqmcbhjuBMGI [facility]ertart: 08-21-2024 End: 15-57-3308qlriiduwqsZX ROSETTA MENDEZFacility:EU LupekStart: 08-21-2024 End: 23-64-7794Lljfvyo encounter procedureKCARMEN MENDEZ [facility] Start: 08-15-2024 End: 75-11-7533Njimmmxss Result EncounterHishondary Yadira Mathews MD Work Phone: noms External Department UnsolicitedStart: 08-15-2024 End: 55-53-2982Ugjwonqir Result EncounterHilary H Timmis MD Work Phone: noms External Department UnsolicitedStart: 08-09-2024 End: 84-11-4057Zndvgm flowsheetJohn Mathews MD Work Phone: noms CI ENTStart: 08-09-2024 End: 78-30-9336Nmriys flowsheetJohn Mathews MD Work Phone: noms CI ENTStart: 08-09-2024 End: 41-00-3428Nitdcx outpatient visit 25 minutesHimary Mathews MD Work Phone: noms CI ENTComment on above:ETD (Eustachian tube dysfunction), right (Primary Dx); CSF otorrhea; Chronic myringitis of right earStart: 08-09-2024 End: 83-99-7386zfpruiezxfVXOSVM H TIMMISNot AvailableStart: 40-76-7987Ngt- patient / Non-visitDosissy Bhatia MD Work Phone: [facility] Work Phone: Start: 07-19-2024 End: 45-58-2073Ucadxlyhr to same day surgery [place]Debbie Bhatia MD Work Phone: [facility] Work Phone: Start: 07-19-2024 End: 60-06-3622sdmnpeitkkUuoyajm M Hoy MD Work Phone: [facility] Work Phone: Start: 02-06-6237ftbkgfrqqyOCDW [facility] Centertart: 07-13-2024 End: 01-30-0898Xkybiyvdb to same day surgery Stepan MENDEZ [facility] Start: 07-13-2024 End: 26-10-8241sofvedgpbbMAMD ROSETTA MENDEZFacility:FTMCStart: 06-27-2024 End: 08-38-5921lyvclqvjzpWeijqklcnSouthview Medical Center Work Phone: Start: 06-27-2024 End: 63-92-7968Nzwquvy encounter procedureSelect Specialty Hospital Phys[facility] GroupDear[facility] Work Phone: Start: 06-26-2024 End: 17-83-3193Ilnawamwg Result EncounterJohn Mathews MD Work Phone: noms External Department UnsolicitedStart: 06-26-2024 End: 32-87-4510Ftzsnnlbv Result EncounterJohn Mathews MD Work Phone: noms External Department UnsolicitedStart: 06-26-2024 End: 30-00-0510tmyoieqxxsXGJLBFXThomas MENDEZFacility:FTMCStart: 06-26-2024 End: 01-52-5218Fqimqqd encounter procedureROSETTA MENDEZ [facility] Start: 06-20-2024 End: 01-18-8686Xzismr flowsAmanda Mathews MD Work Phone: noms CI ENTStart: 06-20-2024 End: 20-38-4368Mhhzfg Tom Mathews MD Work Phone: NOJB CI ENTStart: 37-27-2663Qsj-patient / Non-visit [facility] Work Phone: Start: 06-20-2024 End: 25-87-3524Wqycxf outpatient visit 25 minutesJohn Mathews MD Work Phone: noms CI ENTComment on above:OME (otitis media with effusion), right (Primary Dx); ETD (Eustachian tube dysfunction), right; 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Start: 06-20-2024 End: 49-53-1690mpzckgrmdgRMWGDH H TIMMISNot AvailableStart: 05-19-2024 End: 17-72-0974etqbjjijuiFKOBAOMThomas MENDEZFacility:EU [place]kyStart: 05-09-2024 End: 00-84-9859Qkyfdh flowsheetJohn Mathews MD Work Phone: NOMS CI ENTStart: 05-09-2024 End: 74-75-0665Tgmvaw flowsheetJohn Mathews MD Work Phone: NORR CI ENTStart: 05-09-2024 End: 25-61-2032Pdegvhevx Result EncounterJohn Mathews MD Work Phone: NOLL External Department UnsolicitedStart: 05-09-2024 End: 57-12-8426lebuhojsojOKEASt. Vincent Hospitaltart: 05-09-2024 End: 71-55-6324Eezuic outpatient new 45 minutesJohn Mathews MD Work Phone: noms CI ENTComment on above:OME (otitis media with effusion), right (Primary Dx); Nonintractable headache, unspecified chronicity pattern, unspecified headache typeStart: 05-09-2024 End: 70-88-2495gwdauzhvfoJVNKWC Yadira MORANSNot AvailableStart: 05-05-2024 End: 68-76-3531kjesnxjqpnVKQUXGL NKANSAH-AMANKRAFacility:EU uskyStart: 05-05-2024 End: 58-23-2688Fyghqjq encounter procedureROSETTA MENDEZ [facility] Start: 05-01-2024 End: 09-09-1084mguljobtizDwpbbhuKale Garcia MDFacility:KYLEIGH Ledesma Start: 03-31-2024 End: 98-67-6559vtritvnhqhEpryuyy HoyFacility:EU [place]kyStart: 03-31-2024 End: 48-42-1570Jpdhcxe encounter procedureMikkiCARMEN ZAMUDIOGARYCLAUDIOMichaelCHRIS [facility] Start: 49-07-3414mjgfclnhrmORNNKFY NKANSAH-AMANKRA Facility:EU [place]kyStart: 02-14-2024 End: 38-04-4993hlfxglknopGvpzfww Vytphillip Gieditis MDFacility:[facility] Start: 02-08-2024 End: 42-97-5393pnvymablvfGYPAOhio State East Hospitaltart: 01-26-2024 End: 74-13-0173bycbvxdafhKVGTNewark Hospitaltart: 01-06-2024 End: 88-70-8714enjxkysgzlQmrixwxfwSouthview Medical Center Work Phone: Start: 01-06-2024 End: 07-85-7065Zancfwl encounter procedureSelect Specialty Hospital [facility] Nephrology Javier Work Phone: Start: 11-23-2023 End: 76-52-9727Lxtbrllue for other specified special examinationsRYAN López Wright-Patterson Medical Centertart: 11-23-2023 End: 46-41-3230jggqezqfifEWPUR J. [facility] Start: 07-17-2022 End: 12-82-0523abjkzatpvoYEQE CHACKOFacility:H9Vzhks: 07-02-2022 End: 23-42-5424icbrsfikrxELWK CHACKOFacility:A5Abmgc: 8760agpoyqxznoRF DEBBIE HOY .Facility:J6Gtdpp: 03-09-2022 End: 20-89-5756yovslvtpdzVD DEBBIE HOY .Facility:B6Vztmt: 02-23-2022 End: 81-99-8270agcdetkjwuZG DEBBIE HOY .Facility:N2Cjnec: 02-02-2022 End: 98-47-9518tnqfcvvgkvSJ DEBBIE HOY .Facility:S4Apjhd: 01-26-2022 End: 68-39-4602wtvztaqfzyGA DEBBIE HOY .Facility:X3Mnmty: 01-23-2022 End: 50-40-7202wlzltyzjtwKN DEBBIE HOY .Facility:K3Cjfae: 01-21-2022 End: 48-67-1195bcljagzehmRP DEBBIE HOY .Facility:X9Qrssa: 01-14-2022 End: 28-90-4129lpgcqhevypZQ DEBBIE HOY .Facility:H0Zflmu: 10-28-2021 End: 63-06-8100sorpsyxywsKI DEBBIE HOY .Facility:S5Hpvio: 10-09-2021 End: 02-18-8120hdqybkvukuAG DEBBIE HOY .Facility:V7Zunui: 08-12-2021 End: 26-82-8045lmvdyqbogpRK DEBBIE HOY .Facility:N7Vfezq: 32-68-1526ihelauggck DR DEBBIE BHATIA .Facility:C4Kycxz: 09-29-2016 End: 31-35-1090RiizoyjqtsDRYDGUP PHYSICIANFacility:[facility] Procedures DateProcedureProcedure DetailPerforming ClinicianStart: 45-00-5258Emqfh culture Debbie Bhatia MD Work Phone: Start: 04-89-5219Hmgye immunofixationDebbie Bhatia MD Work Phone: Comment on above:No monoclonality detected.Start: 37-21-4207Wd orbit sella/post fossa/ear w/o contrast matrlHimary Mathews MD Work Phone: Start: 25-93-1415KbsnroxxsucPvmrfzx Hoy MD Work Phone: Start: 28-60-1805PqcihwfmwkJCROXLB NKANSAH-AMANKRA Start: 98-02-6585UHY APTTHimary Mathews MD Work Phone: Start: 87-78-8824YENGNP PROTHROMBIN TIME INR W/O COUM John Mathews MD Work Phone: Start: 05-76-2059Vugpubcr cystoscope (physical object) ROSETTA ZAMUDIOANSAH-AMANKRA Start: 70-43-8819Kndwr sinuses paranasal compl minimum 3 viewsHilary H Ana M BELTRÁN Work Phone: Start: 02-09-2023 End: 76-48-9111LiunlaglbyzMSSJFTF NKANSAH-AMANKRA Start: 81-06-8194RlofanihtngJPKYKWB NKANSAH-AMANKRA Cataract extraction and insertion of intraocular lens ROSETTA NKANSAH-AMANKRA ft (qualifier value)ROSETTA NKANSAH-AMANKRA H/O: hysterectomyKDRISSBENA NKANSAH-AMANKRA HysterectomyCHAYBENA NKANSAH-AMANKRA ProcedureKDRISSBENA NKANSAH-AMANKRA Total hysterectomyKDRISSBENA NKANSAH-AMANKRA Plan of Treatment DateCare ActivityDetailAuthorStart: 86-02-1060Juvtmdeuv for malignant neoplasm of colonNOMS HealthcareStart: 09-11-2025 End: 70-05-2975Ivopekp encounter asaxudtil55/30/2026 10:20 AM EDT Office Visit [facility] [address] [place] [id number] John Mathews MD [address] [place] [address] NOMKaykay Herrera OtolaryngologyStart: 01-22-2025 [facility] 12-[facility]2024 End: 56-50-9363Pmvbcdi encounter gngbamaph92/23/2025 10:50 AM EDT Office Visit [facility] [place] [facility] [address] [place] [address] John Mathews MD [address] [place] [address] ArrivedNOMS [place] OtolaryngologyComment on above:ArrivedStart: 26-78-6012Tekfnyicd vaccinationNOMS HealthcareStart: 66-46-0092Xftugckj identified in Urine by CultureUrine [facility] Hospitalt[facility]: 17-37-5685Lgxphrppyfndej for UrineThe [facility]vue Hospitaltart: 06-90-1401Pjcdd cultureRegency Hospital Toledo Start: 09-48-1598VsbxgsijgThe [facility]vue Hospitaltart: 09-11-2024 End: 21-15-5035Aobsirj encounter ftnfzfdyh05/30/2025 1:30 PM EDT Office Visit [facility] [address] [place] [address] John Mathews MD [address] [place] [address] ArrivedNOMS CI ENTComment on above:ArrivedStart: 08-30-2024 End: 36-96-4021Ddkplxb encounter siewwketf45/18/2025 9:50 AM EDT Office Visit [facility] [address] [place] [address] John Mathews MD [address] [place] [address] NOMS CI ENTStart: 08-09-2024 End: 41-59-1614Bqvsnmm encounter procedureNOMS CI ENTComment on above:Arrived Start: 07-19-2024 End: 15-84-2446CudbmomhrThe [facility]vue Hospitaltart: 06-20-2024 End: 66-41-3320Rowzyai encounter procedureNOMS CI ENTComment on above:Arrived Start: 05-09-2024 End: 44-45-8485Nvxxpos encounter uwiumbsng71/25/2025 8:40 AM EST Office Visit NOM CI E[facility] [address] [facility] [address] [place] [address] John Mathews MD [address] [facility] [address] [place] [address] ArrivedNOMS CI ENTComment on above:ArrivedStart: 80-47-4857Ijktsvvia vaccinationInfluenza Vaccine (#1)[facility] HealthcareStart: 02-88-1626Wtzybmyoaydx Vaccine: 65+ Years (1 of 1 - PCV)Pneumococcal Vaccine: 65+ Years (1 of 1 - PCV)[facility] HealthcareStart: 29-15-3074Spbduxiosmve Vaccine: 65+ Years (1 of 1 - PCV)Pneumococcal Vaccine: 65+ Years (1 of 1 - PCV)[facility] HealthcareStart: 22-01-0066Vuzingslv for malignant neoplasm of breastMammogram [facility] HealthcareStart: 58-21-5325Lxlccakig for malignant neoplasm of colonNOMS HealthcareAlbumin [Mass/volume] in Serum or [facility] HospitalAlbumin/Globulin ratioRegency Hospital ToledoElectrophoresis: nfrjx-5-lwksmaobAjfwqszjrRegency Hospital ToledoElectrophoresis: afevj-9-jyrgdtxxAgyxbijvzRegency Hospital ToledoElectrophoresis: beta-globulin [facility] ToledoElectrophoresis: gamma globulinRegency Hospital ToledoGlobulin [Mass/volume] in SerumRegency Hospital ToledoIgA [Mass/volume] in Serum or PlasmaRegency Hospital ToledoIgG [Mass/volume] in Serum or [facility] HospitalIgM [Mass/volume] in Serum or [facility]iff[facility] HospitalImmunofixation for UrineRegency Hospital ToledoKaaurora west hospital light chains.free [Mass/volume] in [facility] CenterKapp light chains.free/Lambda light chains.free [Mass Ratio] in [facility] Health CenterLambda light chains.free [Mass/volume] in Serum or [facility] Patient EducationUc Medical Center Work Phone: Protein [Mass/volume] in Serum or PlasmaRegency Hospital ToledoRenal function 1999 panel - Serum or PlasmaRegency Hospital ToledoRenal function 1999 panel - Serum or PlasmaRegency Hospital ToledoRenal function 1999 panel - Serum or [facility] Hospitalerum immunofixationKaiser Permanente [facility] Immunizations Immunization DateImmunizationNotesCare DpkndfifBtllkecu84-77-5505NQGF-BuK-3 (COVID-19) mRNA BNT-162b2 kitKCARMEN MENDEZ 863-1741Nbisdm-NzkrxMetrohealth Main Campus Medical Center General Surgery [place] 86-74-4255OYPN-CoV-2, UnspecifiedJohn Mathews MD Work Phone: [facility] HospitalKrvmhhbhat12-55-9976KDXA-GuF-0 (COVID-19) mRNA BNT-162b2 hanCARMEN DESAI-CHRIS [phone]-ZoaagMetrohealth Main Campus Medical Center General [facility] [place] Payers DatePayer CategoryPayerPolicy [id number] 2018Private Health Insurance [id number] 2014Medicare [id number] [id number] [id number] 2.16.840.1.744886.3.57[id number] 2.16.840.1.766957.3.579.2.1[id number] 2.16.840.1.560077.3.579.[id number] 2.16.840.1.343523.3.57[id number] 2.16.840.1.160545.3.579.2.26405-12-3899Itvmbhz3470194 2.16.840.1.612408.3.579.2.11522-62-7823Ujocchp2560749 2.16.840.1.112965.3.579.2.84805-51-8133Cshekbh6842745 2.16.840.1.965106.3.579.2.33390-51-9570Jmkplys2061684 2.840.1.046504.3.579.2.57544-56-7128Xundews7980996 2.16.840.1.892813.3.579.2.73664-58-5460Eiuxumy6005637 2.840.1.347393.3.579.2.96092-39-9696Ekrlpwk9528197 2.840.1.393500.3.579.2.38878-86-9824Kytqnso2729530 2.840.1.226729.3.579.2.75143-94-2988Phtgwjg2124877 2.16.840.1.718371.3.579.2.44570-15-5470Kykashc79378729 2.16.840.1.395391.3.579.2.92590-38-4921Glxbliy82407138 2.16840.1.852900.3.579.2.33684-37-7042Nfottvp13867760 2.16.840.1.531032.3.579.2.61176-88-2452Oqtnemx91251292 2.16.840.1.093252.3.579.2.98887-32-1679Qfshugp48766037 2.16.840.1.115463.3.579.2.90490-75-6086Cbmjavv28270061 2.16.840.1.170955.3.579.2.10066-79-4971Jzylcfh36325308 2.16.840.1.831577.3.579.2.06014-75-1647Ppitwuu006631416 2.16.840.1.989325.3.579.2.58898-09-5841Kpukxvi672752542 2.840.1.703581.3.579.2.97161-72-8009Dhvlkqq096860945 2.16.840.1.327483.3.579.2.06301-26-7612Zdorikx174479397 2..0.1.054100.3.579.2.37716-72-6995Sqrxotx435668306 2..840.1.008709.3.579.2.15820-69-0220Npcqbih98810620 2..840.1.356265.3.579.2.363798-31-3431Wnlawym89686168 2.16.840.1.351415.3.579.2.853108-75-3541Fjogsof3415162 2..840.1.273993.3.579.2.859560-70-2385Udwzpzl0770448 2.16.840.1.001615.3.579.2.593803-39-9875Qlevcks8202381 2.16.840.1.428656.3.579.2.5673QxnyqgiSFY039B51343 8v668788-8em6-57n6-19o5-w262186548d4Sjcvgnd92250968 2.16.840.1.379537.3.579.2.604Knusdra69254765 2.16.840.1.717748.3.579.2.531 Bltuvrd67257046 2.16.840.1.705411.3.579.2.531 Social History DateTypeDetailFacilityStart: 01-06-2024 End: 47-02-6765Cpwwhfy smoking status NHISEx-smoker (finding)[facility]: 52-83-2471Khp Assigned At [facility] ShawTobacc smoking statusNeverExecutive Urology of [facility] SanduskyStart: 05-09-2024 End: 19-52-0315Wrw Assigned At [facility] SystemTobacco smoking status NHISTobacco smoking consumption unknownNOMS HealthcareStart: 66-06-1264Ioo assigned at birthNot on fileNOMS HealthcareStart: 05-09-2024 Tobacco smoking status NHISNever smoked tobaccoNOMS HealthcareStart: 05-09-2024 Tobacco use and exposureSmokeless tobacco non-userNOMS HealthcareStart: 05-09-2024 End: 09-42-1664Nvaqjscwk beverage intakeEx-drinker (finding)[facility] Start: 05-09-2024 End: 81-16-9190Bkhscty of Social functionNOMS HealthcareToOhioHealth Comment on above:quit in 2009Tobacco smoking status [facility] Start: 07-09-2016 End: 46-80-9949AxgUnzfxe (finding)[facility] Goals DatePatient GoalDesired Activity/State Functional Status SswhAogbatpaeoByzsyaOxipiufo14-91-5017Xuvxtylpyw StatusProtestant [facility]01-17-2025Functional StatusN/AExecutive [facility]rology of [facility] [place] Clinical Notes 01-26-2024 to 12-05-2024 Note Date & IfluIiukJtgecpxm87-54-8219 History of Present illness Narrative* John Mathews [...] Ambulatory Problems Diagnosis Date Noted A-fib ([facility]) 04/21/2022 Chest pain 07/27/2016 CKD (chronic kidney disease) stage 4, GFR 15-29 ml/min ([facility]) 01/26/2024 Clinical trial exam 04/23/2022 Dyspnea 07/27/2016 Edema 07/27/2016 Essential hypertension 01/25/2020 Fatigue 07/27/2016 Hyperkalemia 01/26/2024 Lightheadedness 07/27/2016 Lower abdominal pain 01/30/2022 Nonsustained paroxysmal ventricular tachycardia (HCC) 11/30/2022 Obstructive sleep apnea syndrome 10/02/2022 Other secondary pulmonary hypertension (HCC) 12/15/2022 Secondary hyperparathyroidism ([facility]) 01/26/2024 Spinal stenosis of lumbar region with neurogenic claudication 01/30/2022 Spondylosis of lumbosacral region without myelopathy or radiculopathy 01/30/2022 Symptomatic bradycardia 01/01/2023 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 VT (ventricular tachycardia) ([facility]) 04/29/2022 Aspirin long-term use 05/09/2024 CAD (coronary artery disease) 05/09/2024 Chronic obstructive pulmonary disease (HCC) 05/09/2024 Former smoker 05/09/2024 History of colon polyps 05/09/2024 History of tobacco abuse 05/09/2024 Hypercholesterolemia 05/09/2024 Hypothyroidism 05/09/2024 Kidney stones 05/09/2024 Morbid obesity ([facility]) 05/09/2024 Multiple pulmonary nodules 05/09/2024 Stage 3a chronic kidney disease ([facility]) 01/31/2024 Status post lumbar spine operation 05/09/2024 Stress incontinence, female 05/09/2024 Intrinsic sphincter deficiency (ISD) 09/11/2024 Body mass index (BMI) 45.0-49.9, adult ([facility]) 10/24/2024 Resolved Ambulatory Problems Diagnosis Date Noted [...] URI. Tube looks good. documented in this encounterPershing Memorial HospitalVmtxqgibds89-70-4249 NoteUT Cardiology Consult Note Reason for visit: [...] 05/09/24 Patient was recently seen by Dr. EE after she was evaluated in the emergency [...] kidney disease COPD (chronic obstructive pulmonary disease) ([facility]/HCC) Hypertension Myocardial infarction ([facility]) Obstructive sleep apnea 10/02/2022 SOBIA=17.7 events/hour; Pranav SaO2=76%; Emhjje=921.0 lbs; BMI=52.7 kg/m2, Home Sleep Apnea Testing on 09/25/[address] [facility] PSH: Past Surgical History: Procedure Laterality Date CARDIAC CATHETERIZATION COLONOSCOP (more content not included)...[facility] 09-11-2024 History of Present illness Narrative* [...] Ambulatory Problems Diagnosis Date Noted A-fib ([facility]) 04/21/2022 Chest pain 07/27/2016 CKD (chronic kidney disease) stage 4, GFR 15-29 ml/min ([facility]) 01/26/2024 Clinical trial exam 04/23/2022 Dyspnea 07/27/2016 Edema 07/27/2016 Essential hypertension 01/25/2020 Fatigue 07/27/2016 Hyperkalemia 01/26/2024 Lightheadedness 07/27/2016 Lower abdominal pain 01/30/2022 Nonsustained paroxysmal ventricular tachycardia ([facility]) 11/30/2022 Obstructive sleep apnea syndrome 10/02/2022 Other secondary pulmonary hypertension ([facility]) 12/15/2022 Secondary hyperparathyroidism ([facility]) 01/26/2024 Spinal stenosis of lumbar region with neurogenic claudication 01/30/2022 Spondylosis of lumbosacral region without myelopathy or radiculopathy 01/30/2022 Symptomatic bradycardia 01/01/2023 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 VT (ventricular tachycardia) ([facility]) 04/29/2022 Aspirin long-term use 05/09/2024 CAD (coronary artery disease) 05/09/2024 Chronic obstructive pulmonary disease ([facility]) 05/09/2024 Former smoker 05/09/2024 History of colon polyps 05/09/2024 History of tobacco abuse 05/09/2024 Hypercholesterolemia 05/09/2024 Hypothyroidism 05/09/2024 Kidney stones 05/09/2024 Morbid obesity ([facility]) 05/09/2024 Multiple pulmonary nodules 05/09/2024 Stage 3a chronic kidney disease ([facility]) 01/31/2024 Status post lumbar [...] will resolve without tx documented in this encounterPershing Memorial HospitalGoctqquiju26-22-0645 NoteHistory: possible TIA Procedure: Multiplanar, multisequence imaging [...] mastoid sinus Electronically signed: Estrada Raman.[facility] HospitalComment on above:Order Comment: Order in [id number] Hospital Discharge instructions Patient Education 08/21/2024 10:41:06 [...] nerve stimulation). ?For women, using a medical lab director to prevent urine leaks. This is a [...] right after experiencing incontinence. General instructions Take cgxa-vhx-oruxqju and prescription medicines only as told by [...] important. Where to find more information National [place] of Diabetes and Digestive and Kidney Diseases: www.niddk.nih.gov [place] [employer]: www.urologyhealth.org Contact a health care [...] provider. Document Revised: 10/04/2020 Document Reviewed: 10/04/2020 Solo[employer] Patient Education 2023 MaxxAthlete. Follow Up Care 07/14/2024 09:39:25 With:ROSETTA MENDEZ MD, SASKIA Address: When: Unknown [facility] 06-09-2025 NotePatient Education Urology Urinary Incontinence [...] stimulation). ? For women, using a medical lab director to prevent urine leaks. This is a [...] your health care provider (more content not included)...[facility] 08-09-2024 History of Present illness Narrative* John [...] Active Ambulatory Problems Diagnosis Date Noted A-fib ([facility]) 04/21/2022 Chest pain 07/27/2016 CKD (chronic kidney disease) stage 4, GFR 15-29 ml/min ([facility]) 01/26/2024 Clinical trial exam 04/23/2022 Dyspnea 07/27/2016 Edema 07/27/2016 Essential hypertension ([facility]) 01/25/2020 Fatigue 07/27/2016 Hyperkalemia 01/26/2024 Lightheadedness 07/27/2016 Lower abdominal pain 01/30/2022 Nonsustained paroxysmal ventricular tachycardia ([facility]) 11/30/2022 Obstructive sleep apnea syndrome 10/02/2022 Other secondary pulmonary hypertension 12/15/2022 Secondary hyperparathyroidism ([facility]) 01/26/2024 Spinal stenosis of lumbar region with neurogenic claudication 01/30/2022 Spondylosis of lumbosacral region without myelopathy or radiculopathy 01/30/2022 Symptomatic bradycardia 01/01/2023 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 VT (ventricular tachycardia) ([facility]) 04/29/2022 Aspirin long-term use 05/09/2024 CAD (coronary artery disease) ([facility]) 05/09/2024 Chronic obstructive pulmonary disease ([facility]) 05/09/2024 Former smoker 05/09/2024 History of colon polyps 05/09/2024 History of tobacco abuse 05/09/2024 Hypercholesterolemia ([facility]) 05/09/2024 Hypothyroidism ([facility]) 05/09/2024 Kidney stones 05/09/2024 Morbid obesity ([facility]) 05/09/2024 Multiple pulmonary nodules 05/09/2024 Stage 3a chronic kidney disease (HCC) ([facility]) 01/31/2024 Status post lumbar [...] for mild RT myringitis documented in this encounterPershing Memorial HospitalExlqplilnk62-76-7069 [place] [address] Colonoscopy Procedure Report Signed Patient: Vero Sadler MR#: [id number] : 1950 Acct:[id number] Age/Sex: 74 / F Adm Date: 5 Loc: Room: Type: [facility] Attending Dr: Kal Molina MD Copies [...] was slowly withdrawnwith the findings as below. Egnar bowel prep score was good. Findings: Cecum: [...] Molina MD 07/19/24 1321 Signed By: 07/19/[address] [place], [place] 7455405-07-2025 [place] [address] Gastroenterology H&P Signed Patient: Vero Sadler MR#: [id number] : 1950 Acct:[id number] Age/Sex: 74 / F Adm Date: 5 Loc: Room: Type: [facility] Attending Dr: Kal Molina MD Copies [...] MD 07/19/24 1319 Signed By: 07/19/24 1320 [facility]05-03-2025 NoteProgress Note-Physician Patient: VERO SADLER Age: 74 years Sex: Female : 1950 Associated Diagnoses: None Author: Pedro Walden MD Postoperative Information Postoperative disposition: Postoperative disposition: To PACU. Optimetrix number: Optimetrix number [id number]. Anesthetic utilized: General. Health Status Allergies: Allergic Reactions (Selected) Severity Not Documented Adhesive Bandage- Hives. Physical Examination VS/Measurements Pain Assessment: Controlled. General: Awake, Appropriate. Respiratory: Adequate air exchange. Cardiovascular: Stable. Neurological Assessment Anesthetic outcome No anesthetic complications noted. Adequate pain relief. Review / Management Condition: Stable. Plan Transfer/Discharge: Transfer/Discharge Discharge when meets criteria ( To home ).[facility] HospitalComment on above:Result Comment: Electronically Signed By: Pedro Walden MD\.br\Date and Time Signed: 07/15/24 16:46 EDT 07-13-2024 Hospital Discharge instructions Patient Education 07/13/2024 10:40:08 Post Op Patient Instructions - FT (CUSTOM) Follow Up Care 05/19/2024 09:13:05 With:ROSETTA MENDEZ Address:Unknown When: Unknown Comments:1 month [facility] [id number] NotePatient Education - Text [facility]05-01-2025 Note Progress Note-Physician Patient: VERO SADLER Age: [...] Control of stomach acid albuterol 0.083% Inh Viviaan 3 mL: 2.5 mg, 3 mL, NEB, [...] Problems Aspirin long-term use / SNOMED CT 1873585440 / Confirmed Atrial fibrillation / SNOMED CT 32639025 / Confirmed Bradycardia / SNOMED CT 16741845 / Confirmed CAD (coronary artery disease) / SNOMED CT 00431643 / Confirmed Chronic kidney disease due to hypertension.. / SNOMED CT 5283938810 / Confirmed Chronic kidney disease stage 3A. / SNOMED CT 3741941980 / Confirmed Chronic kidney disease stage 4 / SNOMED CT 8293466294 / Confirmed Chronic kidney disease, stage 3 / SNOMED CT 9078193791 / Confirmed Chronic obstructive pulmonary disease / SNOMED CT 70886892 / Confirmed Former smoker / SNOMED CT 71007344 / Confirmed History of colon polyps / SNOMED CT 1463882356 / Confirmed History of operative procedure on lumbar spinal structure / SNOMED CT 5923688548 / Confirmed History of tobacco abuse / SNOMED CT 3197983397 / Confirmed Hypercholesterolemia / SNOMED CT 49106344 / Confirmed Hyperkalemia / SNOMED CT 07345335 / Confirmed Hypertension / SNOMED CT 8874581905 / Confirmed Hypertensive disorder / SNOMED CT 3728323236 / Confirmed Hypothyroidism / SNOMED CT 39808999 / Confirmed Morbid obesity / SNOMED CT 772833490 / Confirmed Multiple pulmonary nodules / SNOMED CT 1730277831 / Confirmed Pulmonary hypertension / SNOMED CT 254667546 / Confirmed Spinal stenosis / SNOMED CT 870244229 / Confirmed Stress incontinence, female / SNOMED CT 342251624 / Confirmed Canceled: Kidney stones / SNOMED CT 766985359 pt denies, Active Problems (23) Aspirin long-term [...] selected or recorded. Fam (more content not included)...[facility] HospitalComment on above: Result Comment: Electronically Signed By: Pedro Walden MD\.br\Date and Time Signed: 07/13/24 08:41 [id number] Evaluation + Plan noteExtracted from:Title: ANES Pre-operative Note uthor:Pedro Walden MDDate:07/12/24 Plan [place] [employer] Anesthesiologists (ASA) physical status classification: Class III. Anesthetic Preoperative Plan: Anesthesia Monitored anethesia care.[facility] 04-15-2025 Evaluation note* Diagnosis Onset Date Resolution Status Admit Date Anemia of renal disease acuteApril 2024 10:58amCKD (chronic kidney disease) stage 4, GFR 15-29 ml/minacuteApril 2024 10:58amHyperkalemiaacuteApril 2024 10:58am HyperlipidemiaacuteApril 2024 10:58amHypertensive chronic kidney disease with stage 1 through stage 4 chronic kiacuteApril 2024 10:58am HyperuricemiaacuteApril 2024 10:58amHypomagnesemiaacuteApril 2024 10:58amSecondary hyperparathyroidismacuteApril 2024 10:58am [facility] Work Phone: 1(462) 931-816504-08-2025 History of Present illness Narrative* John Mathews [...] kidney disease) stage 4, GFR 15-29 ml/min ([facility]/HCC) 01/26/2024 Clinical trial exam 04/23/2022 Dyspnea [...] 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 VT (ventricular tachycardia) ([facility]) 04/29/2022 Aspirin long-term use 05/09/2024 CAD (coronary artery disease) (CMS/HCC) 05/09/2024 Chronic obstructive pulmonary disease ([facility]/HCC) 05/09/2024 Former smoker 05/09/2024 History of colon polyps 05/09/2024 History of tobacco abuse 05/09/2024 Hypercholesterolemia (CMS/HCC) 05/09/2024 Hypothyroidism (CMS/HCC) 05/09/2024 Kidney stones 05/09/2024 Morbid obesity ([facility]) 05/09/2024 Multiple pulmonary nodules 05/09/2024 Stage 3a chronic kidney disease (HCC) ([facility]) 01/31/2024 Status post lumbar [...] Hold ASA 10d preop documented in this encounterPershing Memorial HospitalNixxhgaluc09-49-0860 NotePatient Education Obstetrics and Gynecology Kegel Exercises [...] provider. Document Revised: 07/10/2021 Document Reviewed: 07/10/2021 SoloLearn Patient Education ? 2023 MaxxAthlete.[facility] 05-09-2024 NoteUT Cardiology Consult Note Reason [...] kidney disease COPD (chronic obstructive pulmonary disease) ([facility]) Hypertension Myocardial infarction ([facility]) Obstructive sleep apnea 10/02/2022 SOBIA=17.7 events/hour; Pranav SaO2=76%; Zhfpdq=276.0 lbs; BMI=52.7 kg/m2, Home Sleep Apnea Testing on 09/25/[address] [facility] PSH: Past Surgical History: Procedure Laterality [...] (01/05/2023) Tr (more content not included)...[facility]02-25-2025 History of Present illness Narrative* John Mathews MD - 05/09/2024 8:40 AM EST Subjective Patient ID: Vero Sadler is a 74 y.o. female who presents for Ear Problem (Audio 05/04/24 [facility] ) Pt had the flu 4 weeks ago and now unable to hear on the RT. Also has RT LAMBERT. No tx yet per pt. 05/04audio shows moderate to severe right mixed HL with a flat tymp. Review of Systems All other systems reviewed and are negative. No family history on file. 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 VT (ventricular tachycardia) ([facility]) 04/29/2022 Aspirin long-term use 05/09/2024 CAD (coronary artery disease) ([facility]) 05/09/2024 Chronic obstructive pulmonary disease ([facility]) 05/09/2024 Former smoker 05/09/2024 History of colon polyps 05/09/2024 History of tobacco abuse 05/09/2024 Hypercholesterolemia ([facility]) 05/09/2024 Hypothyroidism ([facility]) 05/09/2024 Kidney stones 05/09/2024 Morbid obesity ([facility]) 05/09/2024 Multiple pulmonary nodules 05/09/2024 Stage 3a chronic kidney disease (HCC) ([facility]) 01/31/2024 Status post lumbar [...] possible cause of LAMBERT. documented in this encounterPershing Memorial [id number] Hospital Discharge instructions Follow Up Care 04/12/2024 08:02:27 With:BRYAN BELTRÁN, SASKIA SARGENT Address: When: Unknown [facility] 01-17-2025 Hospital Discharge instructions Patient Education 03/31/2024 [...] including vitamins, herbs, eye drops, creams, and kdar-wmi-aqmdamd medicines. Any problems you or family members [...] provider tells you to take them. Taking cszi-pvz-uocmxfu medicines, vitamins, herbs, and supplements. Tests You [...] Follow these instructions at home: Medicines Take dwhi-dwp-fznsyma and prescription medicines only as told by [...] provider. Document Revised: 11/12/2021 Document Reviewed: 10/11/2020 [employer] Patient Education 2023 [employer]. 03/31/2024 15:09:42 Injection Treatments for Urinary Incontinence [...] including vitamins, herbs, eye drops, creams, and amvy-vcp-xtiubty medicines. Any problems you or family members [...] provider tells you to take them. Taking knar-oot-gmkonpy medicines, vitamins, herbs, and supplements. General instructions [...] provider. Document Revised: 10/04/2020 Document Reviewed: 10/04/2020 [employer] Patient Education 2023 [employer]. 03/31/2024 15:09:34 Kegel Exercises Kegel Exercises Kegel [...] provider. Document Revised: 07/10/2021 Document Reviewed: 07/10/2021 [employer] Patient Education 2023 [employer]. Follow Up Care 02/22/2024 14:36:40 With:BRYAN BELTRÁN, ROSETTA, URL Address: When: Unknown [facility] 01-17-2025 NotePatient Education Obstetrics [...] provider. Document Revised: 07/10/2021 Document Reviewed: 07/10/2021 [employer] Patient Education ? 2023 [employer] Urology Cystoscopy Cystoscopy is a procedure that [...] including vitamins, herbs, eye drops, creams, and ffep-vup-vcpgbdo medicines. ??? Any problems you or family [...] tells you to take them. ??? Taking aaiz-ppl-inxalxb medicines, vitamins, herbs, and supplements. Tests You may have an exam or testing, such as: ??? X-rays of the bladder, urethra, or kidneys. ??? CT scan of the abdomen or pelvis. ??? Urine tests to check for signs of infection. General instructions ??? Follow instructions fr (more content not included)...[facility]11-13-2024 [facility] Cardiology Clinic Note Chief Complaint: Patient is here today for follow up [facility] ED visit. She was having [...] kidney disease, COPD (chronic obstructive pulmonary disease) ([facility]), Hypertension, Myocardial infarction ([facility]), and Obstructive sleep apnea [...] g, Rfl (more content not included)...[facility] No data available for this section [facility] Evaluation + Plan note Future Appointments Appointment Date:07/13/2024 09:00:00 AM Scheduled Provider: Location:[facility] Appointment Type:Surgery [facility] Evaluation + Plan note Future Appointments Appointment Date:02/20/2025 11:00:00 AM Scheduled Provider:ROSETTA MENDEZ MD Location:[facility] Appointment Type:URO Office Visit [facility] Evaluation note* Diagnosis Onset Date Resolution Status CKD (chronic kidney disease) stage 4, GF R 15-29 ml/min [id number] hyperparathyroidismacute Chronic kidney diseaseTriHealth [facility] Work Phone: Evaluation note* Diagnosis OME (otitis media with effusion), right- Primary Nonintractable headache, unspecified chronicity pattern, unspecified headache type documented [facility] encounter [facility] Diagnosis OME (otitis media with effusion), right- Primary ETD (Eustachian tube dysfunction), right 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 documented in this encounter [facility]* Diagnosis Onset Date Resolution Status Admit Date Anemia of renal disease acuteApril 2024 10:58amCKD (chronic kidney disease) stage 4, GFR 15-29 ml/minacuteApril 2024 10:58amHyperkalemiaacuteApril 2024 10:58am HyperlipidemiaacuteApril 2024 10:58amHypertensive chronic kidney disease with stage 1 through stage 4 chronic kiacuteApril 2024 10:58am HyperuricemiaacuteApril 2024 10:58amHypomagnesemiaacuteApril 2024 10:58amSecondary hyperparathyroidismacuteApril 2024 10:58am [facility] Work Phone: Evaluation note* Diagnosis ETD (Eustachian tube dysfunction), right- Primary CSF otorrhea Chronic myringitis of right ear documented in this encounter [facility] HealthcareEvaluation [facility]* Diagnosis ETD (Eustachian tube dysfunction), right- Primary Chronic mastoiditis, right documented in this encounter [facility]* Diagnosis Onset Date Resolution Status Admit Date Anemia of renal disease acuteJuly 2024 11:03amCKD (chronic kidney disease) stage 4, GFR 15-29 ml/minacuteJuly 2024 11:03amHyperkalemiaacuteJuly 2024 11:03am HyperlipidemiaacuteJuly 2024 11:03amHypertensive chronic kidney disease with stage 1 through stage 4 chronic kiacuteJuly 2024 11:03amHyperuricemia acuteJuly 2024 11:03amHypomagnesemiaacuteJuly 2024 11:03amSecondary hyperparathyroidismacuteJuly 2024 11:03am [facility] Work Phone: Evaluation note* Diagnosis Acute URI- Primary Acute upper respiratory infections of unspecified site ETD (Eustachian tube dysfunction), right documented in this encounter [facility] HealthcareEvaluation noteNo assessment information availableU[facility] Work Phone: History and physical note Author Kal Molina [facility] ToledoNote Date/TimeMay 2024 1:20pmTravis Ville [id number] Gastroenterology H&P Signed Patient: Vero Sadler MR#: [id number] : 1950 Acct:[id number] Age/Sex: 74 / F Adm Date: 5 Loc: Room: Type: [facility] Attending Dr: Kal Molina MD Copies [...] M.D. Documented By: Kal Molina MD 07/19/24 1312 Signed By: <Electronically signed by Kal Molina MD> 07/19/24 1320 [facility] Work Phone: Hospital Discharge instructions No data available for this section [facility] Hospital Discharge instructionsAdditional Instructions DISCHARGE INSTRUCTIONS FOR COLONOSCOPY WHAT TO [...] NOT operate machinery such as power tools, Recombinen mowers, Podotree blowers, sewing machines, etc. for 24 hours. [...] years. -Follow up with PCP. -Office number [phone]. [facility] Work Phone: Progress note No data available for this section [facility] Reason for referral (narrative)No reason for referral information availableS[facility] Work Phone: Summary Purpose Family History [...] Advance Directives No January 06, 2024 12:45pm Advance Directive Response Recorded Date/ Time Advance Directives No January 06, 2024 11:45am Chief Complaint and Reason for Visit Chief Complaint RENAL CKD 3 Reason for Visit CKD (chronic kidney disease) stage 4, GFR 15-29 ml/min Hyperkalemia [id number] Secondary hyperparathyroidism Chronic kidney disease Chief Complaint [...] 3am Secondary hyperparathyroidism October 05, 2024 11:03am Chief Complaint Admit Date hx of colon polyps January 22, 2025 7:08am Additional Source Comments INFORMATION SOURCE (unrecogn ized section and content) DATE CREATED AUTHOR 09/08/[address] [facility] DATE CREATED AUTHOR AUTHOR'S ORGANIZ ATION 09/27/2020 [facility] DATE CREATED AUTHOR AUTHOR'S ORGANIZ ATION 07/24/2022 [facility] DATE CREATED AUTHOR AUTHOR'S ORGANIZ ATION 06/27/2024 [facility] DATE CREATED AUTHOR AUTHOR'S ORGANIZ ATION 09/13/2024 [facility] DATE CREATED AUTHOR AUTHOR'S ORGANIZ ATION 11/01/2024 [facility] DATE CREATED AUTHOR AUTHOR'S ORGANIZ ATION 11/15/[address] [facility] DATE CREATED AUTHOR AUTHOR'S ORGANIZ ATION 12/06/2024 [facility] DATE CREATED AUTHOR AUTHOR'S ORGANIZ ATION 01/25/2025 [facility] Care Teams (unrecognized sec tion and content) Team Status: Active Member Role Status Dates Debbie Bhatia MD Primary Care Provider Active Team Status: Inactive Member Role Status Dates Debbie Bhatia MD Primary Care Provider Active Start: June 27, 2024 End: June 27bdul Sarbjit , MDAttending ProviderActiveStart: June 27, 2024 End: June 27, 2024 Team Status: Inactive Member Role Status Dates Debbie Bhatia MD Primary Care Provider Active Start: July 19, 2024 End: July 19, 2024Imad Asaad , MDAttending ProviderActiveStart: July 19, 2024 End: July 19, 2024 Team Status: Active Member Role Status Dates Debbie Bhatia MD Primary Care Provider Active Start: July 19, 2024 Imad Asaad , MDAttending ProviderActiveStart: July 19, 2024 Kal Molina MDOther [...] MemberRelationshipSpecialtyStart DateEnd Date Debbie Bhatia MD [address] [place] [address] [facility]05/09/24Team MemberRelationshipSpecialtyStart DateEnd Date Debbie Bhatia MD [address] [place] [address] PCP - GeneralFamily Medicine05/09/24Team MemberRelationshipSpecialtyStart DateEnd Date Debbie Bhatia MD [address] [facility] [place] [address] PCP - GeneralFamily Medicine05/09/24Team MemberRelationshipSpecialtyStart DateEnd Date Debbie Bhatia MD [address] [facility] [place] [address] PCP - GeneralFamily Medicine05/09/24 Team Status: Active Member Role Status Dates Debbie Bhatia MD Primary Care Provider Active Start: July 19, 2024 Imad Tracy , MDAttending Provider, Other ProviderActiveStart: July 19, 2024 Team MemberRelationshipSpecialtyStart DateEnd Date Debbie Bhatia MD [address] [facility] [address] PCP - GeneralFamily Medicine08/02/24Team MemberRelationshipSpecialtyStart DateEnd Date Debbie Bhatia MD [address] [facility] [place] [address] PCP - GeneralFamily Medicine08/02/24Team MemberRelationshipSpecialtyStart DateEnd Date Debbie Bhatia MD [address] [facility] [address] PCP - GeneralFamily Medicine08/02/24Team MemberRelationshipSpecialtyStart DateEnd Date Debbie Bhatia MD [address] [facility] [place] [address] PCP - GeneralFamily Medicine08/02/24Team MemberRelationshipSpecialtyStart DateEnd Date Debbie Bhatia MD [address] [place] [address] PCP - [facility]08/02/24 Team Status: Inactive Member Role Status Dates Debbie Bhatia MD Primary Care Provider Active Start: October 05, 2024 End: October 05bdRebecca Huerta ProviderActiveStart: October 05, 2024 End: October 05, 2024Team MemberRelationshipSpecialtyStart DateEnd Date Debbie Bhatia MD [address] [place] [phone] PCP - [facility]08/02/24 Team Status: Active Member Role/Relationship Status Dates Debbie Bhatia MD Primary Care Provider Active Team Status: Active Member Role/Relationship Status Dates Debbie Bhatia MD Primary Care Provider Active Start: January 22, 2025 Marlee Samsonending ProviderActiveStart: January 22, 2025 Kal Molina MDOther ProviderActiveStart: January 22, 2025 Goals (unrecognized section and content) Goals may be documented in a n alternate section No data available for this section No data available for this section No data available for this sectionGoals may be documented in an alternate section No data available for this section No data available for this sectionGoals may be documented in an alternate section Reason for Visit (unrecogniz ed section [...] BE BASED ON THE PRIMARY CLINICAL RECORDS. [facility] My [employer] [facility]. provides no warranty or guarantee of the accuracy or completeness of information in this document.
--- OUTSIDE RECORDS SUMMARY | 2025-02-09 07:59 | XMS_ITS | Clinical Summary ---
Author Organization [facility] Address [address] [place] [address] Phone Care Team Providers Care Gate Watchman Name Role Phone Unavailable Primary Care Provider Unavailabl e Social History Tobacco UseTypesPacks/DayYears UsedDateSmoking Tobacco: Never Assessed CommentsUnknownSex and Gender InformationValueDate RecordedSex Assigned at Not on fileLegal StxEydttq95/26/2022 7:26 PM ESTGender IdentityNot on fileSexual OrientationNot on file Plan of Treatment Not on file
--- OUTSIDE RECORDS SUMMARY | 2025-02-09 07:59 | XMS_ITS | Encounter Summary ---
Author Organization [facility] Address [address] [place] [address] Care Team Providers Care Guide Dog Mobility Instructor Name Role Phone Jeremiah Arvizu MD Primary Care Provider [phone] Reason for Referral * Imaging (Routine) - Pending ReviewSpecialtyDiagnoses / ProceduresReferred By ContactReferred To ContactCardiology Diagnoses Elevated erythrocyte sedimentation rate Procedures Transthoracic echo (TTE) complete Tato Salcido MD [address] [place] [address] Phone: tel: fax: Referral IDStatusReasonStart DateExpiration DateVisits RequestedVisits [id number] Review Perform Procedure Encounter Details DateTypeDepartmentCare Team (Latest Contact Info)Wwajkoulcot22/19/2025Orders Only [facility] [address] [place] [address] Nevaeh Curiel MA Elevated erythrocyte sedimentation rate (Primary Dx) Social History Tobacco UseTypesPacks/DayYears UsedDateSmoking Tobacco: FormerCigarettesQuit: 2008Passive Smoke Exposure: NeverSmokeless Tobacco: NeverAlcohol UseStandard Drinks/WeekCommentsYes0 [...] heating?Not hard at all01/05/2023HQ-2AnswerDate RecordedPatient Health Questionnaire-2 [id number] Safety & Environment AnswerDate RecordedWithin the last [...] 01/05/2023CommentsNoSex and Gender InformationValueDate RecordedSex Assigned at SdsibOikjgn13/06/2025 4:22 PM EDTLegal YqkTpfuhe60/29/2022 9:47 PM EDTGender EnvtqcqtXhmcex14/06/2025 4:22 PM EDTSexual OrientationHeterosexual or Ygshoupr92/06/2025 4:22 PM EDTdocumented as of this encounter Plan of Treatment DateTypeDepartmentCare Team (Latest Contact Info)Lndwbobyben82/16/2025 10:30 AM ESTOffice Visit [facility] [address] [place] [address] Irvin Posada MD [address] [place] [phone] NameTypePriorityAssociated DiagnosesOrder ScheduleTransthoracic echo (TTE) completeEchocardiographyRoutine Elevated erythrocyte sedimentation rate Expected: 01/31/2025 (Approximate), Expires: 01/31/2027documented as of this encounter Visit Diagnoses Diagnosis Elevated erythrocyte sedimentation rate- Primary Elevated sedimentation rate documented in this encounter Care Teams Team MemberRelationshipSpecialtyStart DateEnd Date Jeremiah Arvizu MD [address] [facility] [address] [address] PCP - Apiyezn95/14/22documented as of this encounter
--- OUTSIDE RECORDS SUMMARY | 2025-02-09 07:59 | XMS_ITS | Patient Health Record ---
Author Organization The [facility] in [place] Address [address] [place] [address] Care Team Providers Care Housekeeping Aid Name Role Phone Dontrell Arvizu Primary Care Provider Beatriz Campos Unavailable [phone] Donal Salmeron Unavailable [phone] Allergies Allergen (clinical drug ingredient) Drug/Non Drug Allergy documented on EMR Reaction Allergy Type Onset Date Status Plastic Tape (uncoded)mnlpbJuisczk53/27/2023ctivefluticasoneFlonaseUnknownDrug AllergyActivePenicillinUnknownDrug AllergyActive Results Component Value Reference Range Notes PTH, Intact Reviewed date:06/21/2024 12:49:25 PM Interpretation: Performing Lab: Notes/Report: [facility] , PTH, Intact 43 15-65 pg/mL Performed at: [facility] [address] [id number] Online Project Manager: Jozef Medina PhD, Phone: [phone] Performing Lab: see note [facility] LBECG 12 lead Reviewed date:07/30/2024 09:56:53 PM Interpretation: Performing Lab: Notes/Report: Source Facility: [place] [address] [place] [address] Electrocardiograph Report Signed Patient: JUSTIN SADLER MR#: [id number] : 1950 Acct:[id number] Age/Sex: 74 / F ADM Date: 07/28/24 Loc: MS 232-[address]: Debbie Arvizu M.D. Ordering Physician: Etienne Arceo Date of Service: 07/28/24 Procedure(s): ECG 12 lead Accession Number(s): [id number] cc: [facility] Test Date: 2024-07-28 Pat Name: JUSTIN SADLER Department: Room: - Gender: Female [place]: : 1950 Requested By: 1031 Order Number: [id number] Reading MD: LOVE RUBIO M.D. Measurements Intervals [place] Rate: 80 P: 92 SD: 180 QRS: 37 QRSD: 88 T: 27 QT: 402 QTc: 438 Interpretive Statements 87923 Electronic atrial pacemaker 9120 atypical ECG Compared to ECG 01/23/2024 17:12:55 No significant changes Electronically Signed On 07-29-2024 7:49:53 EDT by LOVE RUBIO M.D. Dictated By: LOVE RUBIO Signed By: 07/29/24 0750 DD/ 2177 TD/TT: Fire Management Specialist:Troponin I High Sensitivity Reviewed date:07/30/2024 09:56:53 PM Interpretation: Performing Lab: Notes/Report: [facility] ,Troponin I High Filxlkzdvgk77.04.0-51.3 pg/mL CUT-OFF POINTS HAVE BEEN ESTABLISHED BASED ON THE FOURTH UNIVERSAL DEFINITION OF MYOCARDIAL INFARCTION. THE UPPER REFERENCE LIMIT (URL) OF TROPONIN, DEFINED THE 99TH PERCENTILE OF cTnI DISTRIBUTION IN A REFERENCE POPULATION, HAS BEEN CONFIRMED THE DECISION THRESHOLD FOR AL DIAGNOSIS. 99TH PERCENTILE = 51.4 PG/ML NOTE: HIGH-SENSITIVITY TROPONIN ASSAY IS NOT INTENDED TO BE USED IN ISOLATION BUT SHOULD BE INTERPRETED IN CONJUNCTION WITH OTHER DIAGNOSTIC AND CLINICAL INFORMATION. Performing Lab:see noteML - [facility] LBPROF CHEM 8 (BAS METB) Reviewed date:07/30/2024 09:56:53 PM Interpretation: Performing Lab: Notes/Report: [facility] ,Xqiwes351456-621 mmol/LPotassium4.83.5-5.1 mmol/FTsemeaic48961-794 mmol/LCarbon Owamzjt56.521.0-32.0 mmol/LAnion Gap9.7Uwgsehu61876-187 mg/dLBlood Urea Nitrogen 53.07.0-18.0 mg/dLCreatinine2.930.55-1.02 mg/dLEstimated GFR ( Ilhvwcq17 >=60 mL/min/1.73m 2Estimated GFR (Non- Ame16>=60 mL/min/1.73m 2BUN Creatinine Ratio18.1Dpyxvai0.48.5-10.1 mg/dLPerforming Lab:see noteML - [facility] LBCBC AUTO DIFF Reviewed date:07/30/2024 09:56:53 PM Interpretation: Performing Lab: Notes/Report: [facility] ,White Blood Count7.24.0-11.0 10 3/uLRed Blood Count3.894.20-5.40 10 6/uL Tuywgsdjoq24.412.0-16.0 g/sGVxqgntopnr26.636.0-48.0 %Mean Corpuscular Guvaqs19.1 81.0-99.0 fLMean Corpuscular Strzgshzkw07.326.7-34.0 pgMean Corpuscular HGB Conc 31.129.9-35.2 g/dLRed Cell Distribution Width13.411.0-15.0 %Platelet Nhodd901 150-450 10 3/uLMean Platelet Volume9.69.5-13.5 fLNeutrophils Percent Auto66.4 43.0-75.0 %Lymphocytes Percent Auto18.820.5-60.0 %Monocytes Percent Auto12.41.7- 12.0 %Eosinophils Percent Auto1.70.9-7.0 %Basophils Percent Auto0.40.2-2.0 % Immature Granulocytes Pct Auto0.30.0-0.5 %Neutrophils Absolute Auto4.81.4-6.5 10 3/uLLymphocytes Absolute Auto1.41.2-3.8 10 3/uLMonocytes Absolute Auto0.90.3-0.8 10 3/uLEosinophils Absolute Auto0.10.0-0.7 10 3/uLBasophils Absolute Auto0.00.0- 0.1 10 3/uLImmature Granulocytes Abs Auto0.020.00-0.03 10 3/uLPerforming Lab:see noteML - [facility] LBReticulocyte Pct Auto Reviewed date:07/30/2024 09:56:53 PM Interpretation: Performing Lab: Notes/Report: [facility] ,Reticulocyte Pct Auto1.220.60-3.10 %Performing Lab:see noteML - [facility] LBIFE, PE and FLC, Serum Reviewed date:07/30/2024 09:56:53 PM Interpretation: Performing Lab: Notes/Report: [facility] ,Immunoglobulin G, Qn, Ezyvw6023179-8828 mg/dLImmunoglobulin A, Qn, Tvhmc50170- 422 mg/dLImmunoglobulin M, Qn, Qtqkm3028-027 mg/dLProtein, Total6.26.0-8.5 g/dL Albumin3.22.9-4.4 g/nGKrmbu-0-Ottnxgrb7.30.0-0.4 g/wTZomvm-7-Vwmdmocc8.90.4-1.0 g/dLBeta Globulin1.00.7-1.3 g/dLGamma Globulin0.90.4-1.8 g/dLM-SpikeComment:Not Observed g/dLSPE shows an asymmetrical gamma.Globulin, Total3.02.2-3.9 g/dLA/G Ratio1.10.7-1.7Immunofixation Result, SerumComment:. Presence of monoclonal protein is unclear at this time. Suggest repeat in 3 to 6 months if clinically indicated. Please note:Comment. Protein electrophoresis scan will follow via computer, mail, or sweep molder delivery. Free [place] Lt Chains,S42.03.3-19.4 mg/LFree Lambda Lt Chains,S26.65.7-26.3 mg/L [place]/Lambda Ratio,S1.580.26-1.65 Performed at: - [facility] [address] [id number] Online Project Manager: Jozef Medina PhD, Phone: [phone] Performing Lab:see noteLC - [facility] LBErythrocyte Sedimentation Rate Reviewed date:07/30/2024 09:56:53 PM Interpretation: Performing Lab: Notes/Report: [facility] ,Erythrocyte Sedimentation Rate96<=30 mm/hrPerforming Lab:see noteML - [facility] LBPROF 14(COMP METB) Reviewed date:07/30/2024 09:56:53 PM Interpretation: Performing Lab: Notes/Report: [facility] ,Fxckqi405998-830 mmol/LPotassium5.13.5-5.1 mmol/SVnxlbsdy52800-239 mmol/LCarbon Rllkght54.921.0-32.0 mmol/LAnion Gap9.9Rnjmvdh0645-683 mg/dLBlood Urea Nitrogen 41.07.0-18.0 mg/dLCreatinine2.450.55-1.02 mg/dLEstimated GFR ( Zmgqdqi45 >=60 mL/min/1.73m 2Estimated GFR (Non- Ame19>=60 mL/min/1.73m 2BUN Creatinine Ratio16.4Munljvv5.38.5-10.1 mg/dLBilirubin Total0.40.2-1.0 mg/dL Aspartate Amino Twcazqinczp828-27 U/LAlanine Tnotimsksxqelexi2540-84 U/LAlkaline Ylllrlldfcz0039-040 U/LTotal Protein6.86.4-8.2 g/dLAlbumin Level3.13.4-5.0 g/dL Globulin3.7Albumin Globulin Ratio0.8Performing Lab:see note - [facility] LBLDH Reviewed date:07/30/2024 09:56:53 PM Interpretation: Performing Lab: Notes/Report: [facility] ,Lactate Ifhmexfpgduvs71201-188 U/LPerforming Lab:see note - [facility] LBCRP Reviewed date:07/30/2024 09:56:53 PM Interpretation: Performing Lab: Notes/Report: [facility] ,C Reactive Protein<0.50<=0.50 mg/dLPerforming Lab:see note - [facility] LBCBC AUTO DIFF Reviewed date:07/30/2024 09:56:53 PM Interpretation: Performing Lab: Notes/Report: [facility] ,White Blood Count6.54.0-11.0 10 3/uLRed Blood Count4.104.20-5.40 10 6/uL Kpdghmevlk34.912.0-16.0 g/jFXrmazktdwz64.836.0-48.0 %Mean Corpuscular Qdltmr04.6 81.0-99.0 fLMean Corpuscular Jnbrpyehiq70.026.7-34.0 pgMean Corpuscular HGB Conc 30.729.9-35.2 g/dLRed Cell Distribution Width13.211.0-15.0 %Platelet Kfrqm689 150-450 10 3/uLMean Platelet Volume9.99.5-13.5 fLNeutrophils Percent Auto63.7 43.0-75.0 %Lymphocytes Percent Auto21.620.5-60.0 %Monocytes Percent Auto11.91.7- 12.0 %Eosinophils Percent Auto2.00.9-7.0 %Basophils Percent Auto0.50.2-2.0 % Immature Granulocytes Pct Auto0.30.0-0.5 %Neutrophils Absolute Auto4.11.4-6.5 10 3/uLLymphocytes Absolute Auto1.41.2-3.8 10 3/uLMonocytes Absolute Auto0.80.3-0.8 10 3/uLEosinophils Absolute Auto0.10.0-0.7 10 3/uLBasophils Absolute Auto0.00.0- 0.1 10 3/uLImmature Granulocytes Abs Auto0.020.00-0.03 10 3/uLPerforming Lab:see note - [facility] LBProthrombin Time INR Reviewed date:06/26/2024 08:31:41 PM Interpretation: Performing Lab: Notes/Report: [facility] ,Prothrombin Time11.49.0-11.6 secINR1.08 DESIRED INR: 2.0-3.0 CONDITIONS NOT LISTED BELOW 2.5-3.5 FOR PROSTHETIC HEART VALVE REPLACEMENT 2.5-3.5 RECURRENT THROMBOSIS Performing Lab:see noteML - [facility] LBPTT Reviewed date:06/26/2024 08:31:41 PM Interpretation: Performing Lab: Notes/Report: [facility] ,Partial Thromboplastin Time29.322.3-36.2 secPerforming Lab:see noteML - [facility] LBOccult Blood* Reviewed date:06/22/2024 08:14:52 PM Interpretation: Performing Lab: Notes/Report: [facility] ,Occult BloodPositivePerforming Lab:see noteML - [facility] LBIFE, PE and FLC, Serum Reviewed date:06/22/2024 08:14:52 PM Interpretation: Performing Lab: Notes/Report: [facility] ,Immunoglobulin G, Qn, Ufhoy3145732-0267 mg/dLImmunoglobulin A, Qn, Lfgkl79593- 422 mg/dLImmunoglobulin M, Qn, Ijvhh6126-626 mg/dLProtein, Total6.46.0-8.5 g/dL Albumin2.92.9-4.4 g/kVXkdtq-4-Nqqltdtc3.30.0-0.4 g/mMXxnyk-7-Zpngslfl3.00.4-1.0 g/dLBeta Globulin1.10.7-1.3 g/dLGamma Globulin1.00.4-1.8 g/dLM-SpikeComment:Not Observed g/dLSPE shows an asymmetrical gamma.Globulin, Total3.52.2-3.9 g/dLA/G Ratio0.90.7-1.7Immunofixation Result, SerumComment:. Presence of monoclonal protein is unclear at this time. Suggest repeat in 3 to 6 months if clinically indicated. Please note:Comment. Protein electrophoresis scan will follow via computer, mail, or sweep molder delivery. Free [place] Lt Chains,S51.53.3-19.4 mg/LFree Lambda Lt Chains,S30.75.7-26.3 mg/L [place]/Lambda Ratio,S1.680.26-1.65 Performed at: [facility] [employer] [id number] Online Project Manager: Jozef Medina PhD, Phone: [place] Performing Lab:see [facility] LBImmunofixation, Urine Reviewed date:06/22/2024 08:14:52 PM Interpretation: Performing Lab: Notes/Report: [facility] ,Immunofixation, UrineComment. No monoclonality detected. Performed at: [address] [id number] Online Project Manager: Jozef Medina PhD, Phone: [phone] Performing Lab:see [facility] LBTSH Reviewed date:06/20/2024 03:31:27 PM Interpretation: Performing Lab: Notes/Report: [facility] ,Thyroid Stimulating Hormone0.0080.358-3.740 uIU/mLPerforming Lab:see noteML - [facility] LBT4 Reviewed date:06/20/2024 03:31:27 PM Interpretation: Performing Lab: Notes/Report: [facility] ,T4 Thyroxine8.104.80-13.90 ug/dLPerforming Lab:see noteML - [facility] LBLIPID PROFILE Reviewed date:06/20/2024 03:31:27 PM Interpretation: Performing Lab: Notes/Report: [facility] ,Koathdmztrxvb47<=150 mg/rYPhtkubcuozf314<=200 mg/dLHDL Unjmxxifset3304-90 mg/dL > or =60 mg/dl - LOW CARDIOVASCULAR RISK <40 mg/dl - HIGH CARDIOVASCULAR RISK LDL Cholesterol Rbrwhdjwrb90.0 <100 mg/dl OPTIMAL 100-129 mg/dl NEAR OR ABOVE OPTIMAL 130-159 mg/dl BORDERLINE HIGH 160-189 mg/dl HIGH >190 mg/dl VERY HIGH VLDL EVIGXIQJESM46.0Chol HDL Ratio2.8 3.3 - 4.4 LOW RISK 4.4 - 7.1 AVERAGE RISK 7.1 - 11.0 MODERATE RISK >11.0 HIGH RISK Performing Lab:see noteML - [facility] LBFREE T3 Reviewed date:06/20/2024 03:31:27 PM Interpretation: Performing Lab: Notes/Report: [facility] ,Free T32.572.18-3.98 pg/mLPerforming Lab:see noteML - [facility] LB XR sinus min 3V Reviewed date:05/09/2024 04:10:11 PM Interpretation: Performing Lab: Notes/Report: Source Facility: [facility] [place] [address] [address] XRay Report Signed Patient: JUSTIN SADLER MR#: [id number] : 1950 Acct:[id number] Age/Sex: 74 / F ADM Date: 05/09/24 Loc: RAD Attending Dr: Lakshmi Mathews M.D. Ordering Physician: Lakshmi Mathews M.D. Date of Service: 05/09/24 Procedure(s): XR sinus min 3V Accession Number(s): [id number] cc: Debbie Arvizu M.D.; Lakshmi Mathews M.D. The [place] [id number] Patient Name: JUSTIN SADLER MRN: [id number] date: 1950 Sex: F Assigned Patient Location: RAD Current Patient Location: RAD Accession/Order Number: [id number] Exam Date: 05/09/2024 12:47 Report Date: 05/09/2024 [...] Kelly Lao M.D.05/09/2024 12:54 PM Dictation Location: [place] [address] Electronically authenticated by: [id number] Y Date: 05/09/2024 12:54 Dictated By: Kelly Lao M.D. Signed By: 05/09/24 1257 DD/ 1254 TD/TT: Fire Management Specialist:JONNY FOOT RT 2V Reviewed date:03/11/2024 08:36:26 PM Interpretation: Performing Lab: Notes/Report: Source Facility: [place] [address] [place] [address] XRay Report Signed Patient: JUSTIN SADLER MR#: [id number] : 1950 Acct:[id number] Age/Sex: 74 / F ADM Date: 03/10/24 Loc: RAD Attending Dr: Debbie Arvizu M.D. Ordering Physician: Debbie Arvizu M.D. Date of Service: 03/10/24 Procedure(s): XR foot RT 2V Accession Number(s): [id number] cc: Debbie Arvizu M.D. [place] [id number] Patient Name: JUSTIN SADLER MRN: [id number] date: 1950 Sex: F Assigned Patient Location: RAD Current Patient Location: RAD Accession/Order Number: [id number] Exam Date: 03/10/2024 14:45 Report Date: 03/10/2024 [...] Signed By: 03/10/24 1522 DD/ 1520 TD/TT: Fire Management Specialist:SHYANN int auditory canals w/o con Reviewed date:08/15/2024 04:17:45 PM Interpretation: Performing Lab: Notes/Report: Source Facility: [facility]-[address] [place] [address] [place] [address] CT Scan Report Signed Patient: JUSTIN SADLER MR#: [id number] : 1950 Acct:[id number] Age/Sex: 74 / F ADM Date: 08/15/24 Loc: CT Attending Dr: Lakshmi Mathews M.D. Ordering Physician: Lakshmi Mathews M.D. Date of Service: 08/15/24 Procedure(s): CT int auditory canals w/o con Accession Number(s): [id number] cc: Debbie Arvizu M.D. [address] [address] Patient Name: JUSTIN SADLER MRN: [id number] date: 1950 Sex: F Assigned Patient Location: CT Current Patient Location: CT Accession/Order Number: [id number] Exam Date: 08/15/2024 14:47 Report Date: 08/15/2024 [...] Gutierrez M.D. 08/15/2024 2:51 PM Dictation Location: [place] [address] Electronically authenticated by: [id number] Y Date: 08/15/2024 14:51 Dictated By: Victor Manuel Gutierrez M.D. Signed By: 08/15/24 1454 DD/ 1451 TD/TT: Fire Management Specialist:Aerobic Culture Reviewed date:08/17/2024 08:13:14 PM Interpretation: Performing Lab: Notes/Report: [facility] ,Aerobic CultureSee Below For Report Aerobic Culture Aerobic CultureSpecimen has been received and testing has been initiated. Aerobic Culture Aerobic Culture Aerobic Culture Aerobic CultureNo growth in 36 - 48 hours. Aerobic Culture Aerobic CulturePerformed at: [facility] Aerobic Culture Aerobic [address] [place], [place] [id number] Aerobic Culture Aerobic CultureLab Director: Jozef Medina PhD, Phone: [phone] Aerobic Culture Performing Lab:see note SEE REPORT - Front Desk Assistant Id information not found for OBX-specific lead producer legend [facility] LB Anaerobic Culture Reviewed date:08/17/2024 08:13:14 PM Interpretation: Performing Lab: Notes/Report: [facility] ,Anaerobic CultureSee Below For ReportAnaerobic CultureAnaerobic CultureSpecimen has been received and testing has been initiated.Anaerobic CultureAnaerobic CultureAnaerobic CultureAnaerobic CultureNo anaerobes recovered.Anaerobic CulturePerforming Lab:[facility] LBAerobic Culture Reviewed date:08/13/2024 04:24:34 PM Interpretation: Performing Lab: Notes/Report: [facility] ,Aerobic CultureSee Below For Report Aerobic Culture Aerobic CultureSpecimen has been received and testing has been initiated. Aerobic Culture Aerobic Culture Aerobic Culture Aerobic CultureNo growth in 36 - 48 hours. Aerobic Culture Aerobic CulturePerformed at: CB - [facility] [place] Aerobic Culture Aerobic [address] [place], [place] [id number] Aerobic Culture Aerobic CultureLab Director: Jozef Medina PhD, Phone: [phone] Aerobic Culture Performing Lab:see note LC - [facility] LB SEE REPORT - Front Desk Assistant Id information not found for OBX-specific lead producer legend PROF 14(COMP METB) Reviewed date:07/30/2024 09:56:53 PM Interpretation: Performing Lab: Notes/Report: [facility] ,Jbxvfb180256-929 mmol/LPotassium4.93.5-5.1 mmol/ZYxnbjjhf83556-295 mmol/LCarbon Fafsdts60.921.0-32.0 mmol/LAnion Gap14.1Sxgcjin15574-436 mg/dLBlood Urea Shkenwtd37.07.0-18.0 mg/dLCreatinine2.700.55-1.02 mg/dLEstimated GFR ( Tbhczvn43>=60 mL/min/1.73m 2Estimated GFR (Non- Ame17>=60 mL/min/1.73m 2 BUN Creatinine Ratio20.0Wpphraq5.08.5-10.1 mg/dLBilirubin Total0.50.2-1.0 mg/dL Aspartate Amino Ownhzstrthc0665-01 U/LAlanine Ebhhjapfbmwqlbcv0753-87 U/L Alkaline Mvxfolmflax3487-436 U/LTotal Protein6.36.4-8.2 g/dLAlbumin Level2.93.4- 5.0 g/dLGlobulin3.4Albumin Globulin Ratio0.9Performing Lab:see noteML - [facility] LBMAGNESIUM Reviewed date:07/30/2024 09:56:53 PM Interpretation: Performing Lab: Notes/Report: [facility] ,Magnesium1.91.8-2.4 mg/dLPerforming Lab:see noteML - [facility] LB CBC AUTO DIFF Reviewed date:07/30/2024 09:56:53 PM Interpretation: Performing Lab: Notes/Report: [facility] ,White Blood Count6.24.0-11.0 10 3/uLRed Blood Count3.814.20-5.40 10 6/uL Evlrothouk23.912.0-16.0 g/mZHrxpslclta48.336.0-48.0 %Mean Corpuscular Bzegjd72.7 81.0-99.0 fLMean Corpuscular Oipyaeswnp60.626.7-34.0 pgMean Corpuscular HGB Conc 30.929.9-35.2 g/dLRed Cell Distribution Width13.311.0-15.0 %Platelet Jxvuh475 150-450 10 3/uLMean Platelet Volume9.79.5-13.5 fLNeutrophils Percent Auto60.8 43.0-75.0 %Lymphocytes Percent Auto23.520.5-60.0 %Monocytes Percent Auto13.31.7- 12.0 %Eosinophils Percent Auto1.50.9-7.0 %Basophils Percent Auto0.60.2-2.0 % Immature Granulocytes Pct Auto0.30.0-0.5 %Neutrophils Absolute Auto3.71.4-6.5 10 3/uLLymphocytes Absolute Auto1.51.2-3.8 10 3/uLMonocytes Absolute Auto0.80.3-0.8 10 3/uLEosinophils Absolute Auto0.10.0-0.7 10 3/uLBasophils Absolute Auto0.00.0- 0.1 10 3/uLImmature Granulocytes Abs Auto0.020.00-0.03 10 3/uLPerforming Lab:see noteML - [facility] LBVITAMIN D 25 [place] Reviewed date:06/20/2024 03:31:27 PM Interpretation: Performing Lab: Notes/Report: [facility] ,Vitamin D37.9 <20 ng/mL Vit D deficient 20-<30 ng/mL Vit D insufficient 30-100 ng/mL Vit D sufficient >100 ng/mL Potential Toxicity Performing Lab:see noteML - [facility] LBURINE T PROTEIN CREAT RATIO Reviewed date:06/20/2024 03:31:27 PM Interpretation: Performing Lab: Notes/Report: [facility] ,Total Protein Urine Rcrloh56.4<=11.9 mg/dLCreatinine Urine Jhioco905.9720.00- 300.00 mg/dLProtein Creatinine Ratio Urine0.24Performing Lab:see noteML - [facility] LBURIC ACID SERUM Reviewed date:06/20/2024 03:31:27 PM Interpretation: Performing Lab: Notes/Report: [facility] ,Uric Acid8.02.6-6.0 mg/dLPerforming Lab:see noteML - [facility] LBUA RANDOM W or MICROSCOPIC Reviewed date:06/20/2024 03:31:27 PM Interpretation: Performing Lab: Notes/Report: [facility] ,Color UrineYELLOWYELLOWClarity UrineCLEARCLEARSpecific [place] Urine1.020 1.005-1.025pH Urine6.05.0-9.0Protein UrineNEGATIVENEG/TRACE mg/dLGlucose Urine UANEGATIVENEGATIVE mg/dLBilirubin UrineNEGATIVENEGATIVEKetones UrineNEGATIVE NEGATIVE mg/dLBlood UrineNEGATIVENEGATIVENitrite UrineNEGATIVENEGATIVE Urobilinogen Urine0.20.2-1.0 EU/dLLeukocyte Esterase UrineTRACENEGATIVEWBC Urine 2-5NONE SEEN #/HPFRBC Urine0-20-2 #/HPFBacteria UrineSMALLNONE SEEN #/HPFMucus UrineTRACENONE SEENSquamous Epithelial Cell UrineMODERATENONE/RARE #/LPFCrystals Seen?None SeenNone Seen #/HPFCast Seen?NONE SEENNONE SEEN #/LPFUrine Culture IndicatedNOPerforming Lab:see noteML - [facility] LBPROF 14(COMP METB) Reviewed date:06/20/2024 03:31:27 PM Interpretation: Performing Lab: Notes/Report: [facility] ,Fjczkz691484-047 mmol/LPotassium4.83.5-5.1 mmol/HRvmpozyv82758-215 mmol/LCarbon Lezyumo63.221.0-32.0 mmol/LAnion Gap12.4Oumfios2372-683 mg/dLBlood Urea Nitrogen 38.07.0-18.0 mg/dLCreatinine2.100.55-1.02 mg/dLEstimated GFR ( Mgwufru45 >=60 mL/min/1.73m 2Estimated GFR (Non- Ame23>=60 mL/min/1.73m 2BUN Creatinine Ratio18.8Jzpwpci7.08.5-10.1 mg/dLBilirubin Total0.50.2-1.0 mg/dL Aspartate Amino Zbgbdbahauj5990-81 U/LAlanine Midmvpvyxydbwlqm0968-59 U/L Alkaline Suupeynroub2532-945 U/LTotal Protein6.96.4-8.2 g/dLAlbumin Level3.03.4- 5.0 g/dLGlobulin3.9Albumin Globulin Ratio0.8Performing Lab:see note - [facility] LBPHOSPHORUS Reviewed date:06/20/2024 03:31:27 PM Interpretation: Performing Lab: Notes/Report: [facility] ,Phosphorus3.72.6-4.7 mg/dLPerforming Lab:see [facility] LB MAGNESIUM Reviewed date:06/20/2024 03:31:27 PM Interpretation: Performing Lab: Notes/Report: [facility] ,Magnesium1.61.8-2.4 mg/dLPerforming Lab:see [facility]Mer[facility] LB IRON AND TIBC Reviewed date:06/20/2024 03:31:27 PM Interpretation: Performing Lab: Notes/Report: [facility] ,Iron51.050.0-170.0 ug/dLTotal Iron Binding Vdicrjay782.0250.0-450.0 ug/dL Percent Iron Azkectizrx85.2Performing Lab:see [facility] LB GLYCOHEMOGLOBIN A1C Reviewed date:06/20/2024 03:31:27 PM Interpretation: Performing Lab: Notes/Report: [facility] ,Glycohemoglobin A1C5.24.5-6.2 % ADA RECOMMENDED LIMIT 4.0 - 6.0 ADA THERAPEUTIC TARGET < 7.0 ACTION SUGGESTED > 7.0 Estimated Average Htrfxuv802Aaldmpjdzv Lab:see [facility] LB FERRITIN Reviewed date:06/20/2024 03:31:27 PM Interpretation: Performing Lab: Notes/Report: [facility] ,Sihlltar133.08.0-252.0 ng/mLPerforming Lab:see [facility] LBCBC AUTO DIFF Reviewed date:06/20/2024 03:31:27 PM Interpretation: Performing Lab: Notes/Report: [facility] ,White Blood Count7.54.0-11.0 10 3/uLRed Blood Count3.864.20-5.40 10 6/uL Rtuarqkzyt61.112.0-16.0 g/lSDdmukmbmgw29.136.0-48.0 %Mean Corpuscular Xznfmp58.5 81.0-99.0 fLMean Corpuscular Tgaldatdde47.826.7-34.0 pgMean Corpuscular HGB Conc 30.729.9-35.2 g/dLRed Cell Distribution Width13.911.0-15.0 %Platelet Equqb616 150-450 10 3/uLMean Platelet Volume9.59.5-13.5 fLNeutrophils Percent Auto73.7 43.0-75.0 %Lymphocytes Percent Auto15.420.5-60.0 %Monocytes Percent Auto9.21.7- 12.0 %Eosinophils Percent Auto0.90.9-7.0 %Basophils Percent Auto0.40.2-2.0 % Immature Granulocytes Pct Auto0.40.0-0.5 %Neutrophils Absolute Auto5.51.4-6.5 10 3/uLLymphocytes Absolute Auto1.21.2-3.8 10 3/uLMonocytes Absolute Auto0.70.3-0.8 10 3/uLEosinophils Absolute Auto0.10.0-0.7 10 3/uLBasophils Absolute Auto0.00.0- 0.1 10 3/uLImmature Granulocytes Abs Auto0.030.00-0.03 10 3/uLPerforming Lab:see noteML - [facility] LBCT lower leg LT wo con Reviewed date:08/15/2024 04:17:45 PM Interpretation: Performing Lab: Notes/Report: Source Facility: [facility]-[address] [place] [address] [place] [address] CT Scan Report Signed Patient: JUSTIN SADLER MR#: [id number] : 1950 Acct:[id number] Age/Sex: 74 / F ADM Date: 08/15/24 Loc: CT Attending Dr: Debbie Arvizu M.D. Ordering Physician: Debbie Arvizu M.D. Date of Service: 08/15/24 Procedure(s): CT lower leg LT wo con Accession Number(s): [id number] cc: Debbie Arvizu M.D. [address] [address] Patient Name: JUSTIN SADLER MRN: [id number] date: 1950 Sex: F Assigned Patient Location: CT Current Patient Location: CT Accession/Order Number: [id number] Exam Date: 08/15/2024 15:40 Report Date: 08/15/2024 [...] Ashford M.D. 08/15/2024 3:45 PM Dictation Location: [place] [address] Electronically authenticated by: [id number] Y Date: 08/15/2024 15:45 Dictated By: Sacha Ashford D.O. Signed By: 08/15/24 1547 DD/ 1545 TD/TT: Fire Management Specialist:Aerobic Culture Reviewed date:09/07/2024 07:14:18 PM Interpretation: Performing Lab: Notes/Report: [facility] ,Aerobic CultureSee Below For Report Aerobic Culture Aerobic CultureMixed skin sonny Aerobic Culture Aerobic CulturePerformed at: [facility] A[facility] Culture Aerobic [address] [place], [place] [id number] Aerobic Culture Aerobic CultureLab Director: Jozef Medina PhD, Phone: [phone] Aerobic Culture Performing Lab:see note - [facility] LB SEE REPORT - Front Desk Assistant Id information not found for OBX-specific lead producer legend Anaerobic Culture Reviewed date:09/10/2024 02:54:10 PM Interpretation: Performing Lab: Notes/Report: [facility] ,Anaerobic CultureSee Below For Report Anaerobic Culture Anaerobic CultureNo anaerobic growth in 72 hours. Anaerobic Culture Performing Lab:see note - [facility] LBAerobic Culture Reviewed date:09/10/2024 02:54:10 PM Interpretation: Performing Lab: Notes/Report: [facility] ,Aerobic CultureSee Below For Report Aerobic Culture Aerobic CultureMixed skin sonny Aerobic Culture Aerobic CulturePerformed at: [facility] Aerobic Culture Aerobic [address] [place], [place] [id number] Aerobic Culture Aerobic CultureLab Director: Jozef Medina PhD, Phone: [phone] Aerobic Culture Performing Lab:see note - [facility] LB SEE REPORT - Front Desk Assistant Id information not found for OBX-specific lead producer legend Reason For Referral Diagnosis 1 Bladder prolapse, fe male, acquired (N81.10) Referral Organization [facility] Referring Provider First Name Dontrell Referring Provider Last Name [facility] Referring Provider Speciality [facility] [place] icine Referred Provider Ladonna Malagon Referred Provider Specialty Urology Referral Priority Routine Diagnosis 1 Encounter for examin ation of ears and hearing without abnormal findings (Z01.10) Referral Organization [facility] Referring Provider First Name Dontrell Referring Provider Last Name [facility] Referring Provider Speciality [facility] icine Referred Provider Lakshmi Mathews Referred Provider Specialty Otolaryngolo gy Referral Priority Routine Reason Patient would like Genia muhammad office please! Diagnosis 1 Hyperproteinemia (E8 8.09) Referral Organization [facility] Referring Provider First Name Dontrell Referring Provider Last Name [facility] Referring Provider Speciality Family Med icine Referred Organization [facility] Referred Provider Beatriz Campos Referred Address [address],[place], [place],[address],[place] Referred Provider Specialty Hematology/O ncology Referral Priority Routine Diagnosis 1 Rectal bleeding (K62 .5) Referral Organization [facility] Referring Provider First Name Dontrell Referring Provider Last Name Nolberto [facility] Referred Provider Rigoberto Tam Referred Provider Specialty Gastroentero logy Referral Priority Routine Diagnosis 1 Open wound of leg, l eft, subsequent encounter (H49.368W) Referral Organization [facility] Referring Provider First Name Dontrell Referring Provider Last Name Nolberto Referring Provider [facility] Referred Provider Isael Mart Referred Provider Specialty [...] Unknown 12/17/2020 Administered SARS-COV-2 (COVID 19 Pfizer 30mcg/0.3mL)Vyygnzu6301/07/2021dministered Social History Tobacco Use: Social History Observation Description Date Details (start date - stop date) Former Smoker NA - NA Tobacco Control (Standard) Question Answer Notes Tobacco use: Former smoker How long has it been since you last smoked?Greater than 10 yearsAdditional Findings: Tobacco emq-ffdbMd-kdzc heavy cigarette smoker (40+/day)AUDIT-C (Standard) Question Answer Notes Did you have a drink containing alcohol in the p ast year? No Umwjpt3MdzblrdqlbgvykJaozqhth Problems Problem Type SNOMED Code ICD Code Onset Dates Problem Status W/U Status Risk Notes Problem Hyperkalemia (25595624) Hyperkalemia (E87 .5) ActiveconfirmedProblemAngina co-occurrent and due to coronary arteriosclerosis (disorder) (78201716088040456)Atherosclerotic heart disease of [place] coronary artery with other forms of angina pectoris (I25.118)ActiveconfirmedProblemSick sinus syndrome (10073444)Sick sinus syndrome (I49.5)ActiveconfirmedProblemNon- pressure chronic ulcer of other part of left lower leg with fat layer exposed (L97.822)ActiveconfirmedProblemChronic kidney disease stage 3 (disorder) (256794537)Chronic kidney disease, stage 3 (moderate) (N18.3)Activeconfirmed ProblemBradycardia (07934228)Bradycardia, unspecified (R00.1)Activeconfirmed ProblemMorbid obesity (179957393)Morbid obesity (E66.01)ActiveconfirmedProblem COPD - Chronic obstructive pulmonary disease (20669831)COPD (chronic obstructive pulmonary disease) (J44.9)ActiveconfirmedProblemHypothyroidism (73330647) Hypothyroidism (E03.9)ActiveconfirmedProblemCoronary artery disease (82759065) CAD (coronary artery disease) (I25.10)ActiveconfirmedProblemSpinal stenosis (52339802)Spinal stenosis (M48.00)ActiveconfirmedProblemChronic kidney disease (827624963)CKD (chronic kidney disease) (N18.9)ActiveconfirmedProblemCardiac pacemaker in situ (160464418)Pacemaker (Z95.0)ActiveconfirmedProblemDizziness (424933465)Dizziness (R42)ActiveconfirmedProblemTransient ischemic attack (895747926)TIA (transient ischemic attack) (G45.9)ActiveconfirmedProblemMigraine (38329554)Migraine (G43.909)ActiveconfirmedProblemCOPD - Chronic obstructive pulmonary disease (07970780)Chronic obstructive pulmonary disease, unspecified COPD type (J44.9)ActiveconfirmedProblemPain in right foot (356026924765826)Right foot pain (M79.671)ActiveconfirmedProblemSerous otitis media (72943088)Serous otitis media (H65.90)ActiveconfirmedProblemCellulitis (064624485)Cellulitis (L03.90)ActiveconfirmedProblemDiverticulitis (99094826)Diverticulitis (K57.92) ActiveconfirmedProblemHyperproteinemia (09709370)Hyperproteinemia (E88.09)Active confirmedProblemTubular adenoma (070878684)Tubular adenoma (D36.9)Active confirmedProblemLumbar spondylosis (990348264)Lumbar spondylosis (M47.816)Active confirmedProblemOcular migraine (19414506)Ocular migraine (G43.109)Active confirmedProblemMultiple pulmonary nodules (606416950)Multiple pulmonary nodules (R91.8)ActiveconfirmedProblemMidline cystocele (554114007)Bladder prolapse, female, acquired (N81.10)ActiveconfirmedProblemLumbosacral spondylosis (858816956)Lumbosacral spondylosis (M47.817)ActiveconfirmedProblemAnemia of chronic renal failure (72028033)Anemia due to stage 3 chronic kidney disease (D63.1)ActiveconfirmedProblemChronic venous hypertension with ulcer and inflammation involving left side (I87.332)ActiveconfirmedProblemEssential hypertension (02868834)BP (high blood pressure) (I10)ActiveconfirmedProblemPure hypercholesterolemia (340635604)Pure hypercholesterolemia, unspecified (E78.00) ActiveconfirmedProblemChronic venous hypertension with ulcer and inflammation, left (I87.332)ActiveconfirmedProblemSecondary pulmonary hypertension (33470093) Other secondary pulmonary hypertension (I27.29)ActiveconfirmedProblemPulmonary hypertension (34189904)Pulmonary hypertension (I27.20)ActiveconfirmedProblem Neurogenic claudication (519017579)Spinal stenosis, lumbar region with neurogenic claudication (M48.062)ActiveconfirmedProblemNon-pressure chronic ulcer of other part of left lower leg with muscle involvement without evidenceof necrosis (L97.825)ActiveconfirmedProblemMalnutrition of mild degree ([place]: 75% to less than 90% of standard weight) (21964688)Mild protein malnutrition (E44.1) ActiveconfirmedProblemCOVID-19 (639758451)COVID-19 (U07.1)ActiveconfirmedProblem Body mass index 40+ - severely obese (796596440)Body mass index [BMI] 45.0-49.9, adult (Z68.42)ActiveconfirmedProblemBody mass index 40+ - morbidly obese (023509516)Body mass index [BMI] 50.0-59.9, adult (Z68.43)ActiveconfirmedProblem Chronic kidney disease stage 3 (disorder) (268033135)Chronic kidney disease (CKD), stage III (moderate) (N18.30)ActiveconfirmedProblemVentricular tachycardia (disorder) (22361371)Other ventricular tachycardia (I47.29)Active confirmedProblemSupraventricular tachycardia (disorder) (5067937)Other supraventricular tachycardia (I47.19)Activeconfirmed Vital Signs Heart Rate 77 /min 09/26/2024 Rknzmhvzeub78.0 degrees Tdylkrtrxy84/15/2025Respiratory Rate80 /min09/26/2024 Ppmcsjer14 %09/26/2024lood pressure ovtycgddq462 mm Hg01/24/20250090Btdkhl21 in 01/24/2025lood pressure tenuvadd693 mm Hg01/24/20253061Qydnzp793.4 lbs103/26/2024MI 46.99 kg/m201/24/2025 Encounters Encounter Location Date Provider Diagnosis [facility] [address] [place] [address] 08/08/2024 Dontrell Hoy Cellulitis L03.90 [facility] [address] [place] [address] 08/09/2024 Dontrell Hoy Cellulitis L03.90 [facility] [address] [place] [address] 09/04/2024 Dontrell Hoy Cellulitis L03.90 [facility] [address] [place] [address] 08/03/2024 Dontrell Hoy Migraine G43.909 [facility] [address] [place] [address] 03/10/2024 Dontrell Hoy Right foot pain M79.671 [address] [place] [address] 04/17/2024 Dontrell Hoy Serous otitis media H65.90 [address] [place] [address] 01/24/2025 Dontrell Hoy CAD (coronary artery disease) I25.10 and Weight loss, abnormal R63.4 [facility] [address] [place] [address] 09/26/2024 Donalemily Salmeron Multiple pulmonary nodules R91.8 ; COPD (chronic obstructive pulmonary disease) J44.9 ; History of tobacco abuse Z87.891 ; Morbid obesity E66.01 and Body mass index [BMI] 45.0-49.9, adult Z68.42 [facility] [address] [place] [address] 07/25/2024 Beatriz Campos [facility] [address] [place] [address]/12/2024 [facility] [address] [place] [facility] [place] [place] [address]/poNov[facility] [facility] [place] [address]/Doug HoyAcute bronchitis, unspecified organism J20.9BM[facility] [facility] [place] [address]/oug HoyBladder prolapse, female, acquired N81.10BM[facility] [facility] [place] [address]/ [facility] [facility] [place] [address]/Doug HoyCOPD (chronic obstructive pulmonary disease) J44.9 and Right foot pain M79.671[facility] [place] [address]/12/2024Doug HoyEncounter for examination of ears and hearing without abnormal findings Z01.10BM[facility] [place] [address]/Doug HoyOther fatigue R53.83 ; Other abnormal glucose R73.09 ; Pure hypercholesterolemia, unspecified E78.00 and Encounter for screening for malignant neoplasm of colon Z12.11BM[facility] [facility] [place] [address]/ Dontrell [facility] [facility] [place] [address]/10/2024Doug HoyHypothyroidism E03.9BMer[facility] [address] [facility] [place] [address]/12/2024Doug HoyRectal bleeding K62.5BMercy [facility] Center[address] [place] [address] 06/22/2024Doug HoyHyperproteinemia E88.09Bu[facility] [address] [facility] [place] [address]/04/2024Doug HoyBVYadira Community Hospital[address] [facility] [place] [address]/Doug HoyContusion of head S00.93XA and Contusion of leg, left S80.12XAClear View Behavioral Health [address] [facility] [place] [address]/05/2024Doug HoyBMercy Regional Medical Center[address] [facility] [address]/Doug Hoy [facility] [facility] [place] [address] 09/04/2024Doug HoyOpen wound of leg, left, subsequent encounter S81.802DCle[facility] Health[address] [facility] [place] [address]/ Dontrell Arvizu Assessments Encounter Date Diagnosis (ICD Code) Assessment [...] schedule the testing. With the closing of [facility] Pul[facility] this week, I explained to the patient that I would be unable toF/U immediately with the patient if she were to get the LDCT done at this time. I provided her withoptions: -Either I or her PCP can order the LDCT and refer her to a different teacher instrumental if something very concerning shows -Wait several [...] loss, excessive night sweats, fevers, or hemoptysis. 4Right foot pain (ICD-10 - M79.671)04/17/2024Serous otitis media (ICD- 10 - H65.90)mucinex, zyurtec and flonase - update in a week5Acute bronchitis, unspecified organism (ICD-10 - J20.9)Rest and drink more liquids, especially water. You may use a humidifier or vaporizer to help keep the drainage moist. Plfq-pvq-jpekeyz Nasal Saline may help the stuffy and runny nose. Use Ibuprofen and or Tylenol as needed for fever, chills, body aches or pain. Children 5 years old should not be given bpsr-wsu-fsklrgp cough and cold medications such as guaifenesin and dextromethorphan. If you're over age 5, you may try znyw-aab-yroydtu cold medications such as guaifenesin and dextromethorphan, [...] go to the emergency room or call [phone] (ICD-10 - G43.909)5Cellulitis (ICD-10 - L03.90)5Cellulitis (ICD-10 - L03.90)5Cellulitis (ICD-10 - L03.90)5CAD (coronary artery disease) (ICD-10 - I25.10)Recommend taking hte aspiorin QOD11/02/2025 Weight loss, abnormal (ICD-10 - R63.4)02/21/2024ladder prolapse, female, acquired (ICD-10 - N81.10)04/05/2024OPD (chronic obstructive pulmonary disease) (ICD-10 - J44.9)04/24/2024Encounter for examination of ears and hearing without abnormal findings (ICD-10 - Z01.10)05/31/2024Other fatigue (ICD-10 - R53.83) 06/20/2024Hypothyroidism (ICD-10 - E03.9)06/22/2024Rectal bleeding (ICD-10 - K62.5)06/22/2024Hyperproteinemia (ICD-10 - E88.09)08/11/2024ontusion of head (ICD-10 - S00.93XA)09/04/2024Open wound of leg, left, subsequent encounter (ICD- 10 - S81.802D)08/11/2024ontusion of leg, left (ICD-10 - S80.12XA)05/31/2024 Other abnormal glucose (ICD-10 - R73.09)04/05/2024Right foot pain [...] PANEL (CHOL/TRIG/HDL/LDL) 04/21/19 24 CBC WITH DIFF (EXP 01/2025) 04/21/2023 VITAMIN D, 25 LEVEL (TOTAL) 04/21/2023 [...] End Date [place] [address] [place] [address] [id number] Devan Sadler - patient is the [id number] 2013[employer] INS MEDICARE SUPPLEMENTPO [address] [address] [place] [id number], LouiseSelf - patient is the [id number] 2018 Medications Administered Medication Instructions Date of Administration Dosage Notes Ceftriaxone 1 gram g Medical (General) History Medical History History ICD Code History of COVID-19 Z86.16 History of tobacco abuse Z87.891 COPD (chronic obstructive pulmonary dise ase) J44.9 Chronic kidney disease, stage 3 (moderat e) N18.3 Spinal stenosis M48.00 Pulmonary hypertension I27.20 Other secondary pulmonary hypertension I 27.29 Surgical History Surgery Date(Month/Year) hysterectomy cataract-lens implantsRight Foot SurgeryBack Hqiiurp6605/11/2021PM Implant- Qnnlfsxjc54/31/2023Colonoscopy & EGD - Adumfj68/2023Lumbar/Sacral Injections- Dr. Mensah05/31/20236993fxvbdztfnoy0/7/25Rt Myringotomy, t-tube placement, nasal endoscopy- Dr Mathews07/06/20248377ktwqycwbbes96/10/25
--- OUTSIDE RECORDS SUMMARY | 2025-02-09 07:59 | XMS_ITS | Clinical Summary ---
Author Organization [facility] Address [address] [place] [address] Care Team Providers Care Money Counter Name Role Phone Jeremiah Arvizu MD Primary Care Provider [phone] Allergies Active AllergyReactionsCriticalityNoted DateCommentsFluticasoneHeadache 10/24/2024 Other Reaction(s): Unknown DiuznvtcdnvJpqebb87/16/2022 Other Reaction(s): Other Yeast infection Medications MedicationSigDispense [...] TAKE TWO TABLETS BY MOUTH IN THE KWZMBDV56/11/2025Active carvedilol (Coreg) 12.5 MG tablet TAKE 1 [...] (coronary artery disease)05/09/2024hronic obstructive pulmonary disease 05/09/2024Former zmckld6705/09/2024History of colon kkjpzm1505/09/2024History of tobacco abuse05/09/20248231Cswnxnegucokugxehnxd87/25/5289Oqhvcmjanhlmmx28/25/2025 Kidney hrfyhx5205/09/2024Morbid ngacuqe7605/09/2024Multiple pulmonary nodules 05/09/2024Status post lumbar spine zdizkpfkk86/25/2025Stress incontinence, luxcfc6505/09/2024Stage 3a chronic kidney hddkxnp2101/31/2024KD (chronic kidney disease) stage 4, GFR 15-29 ml/min01/26/20246975Skewipiwvwxn48/13/2024Secondary llxnpddlzxlsnlexfgf97/13/2024Tachy-rhonda wwzaapju49/24/2023Symptomatic odokjxxhkdg10/20/2023Other secondary pulmonary xjauegpuqbql95/03/2023 Nonsustained paroxysmal ventricular kpyjponrwmv59/18/2023Obstructive sleep apnea srpzqipn76/21/2023 Overview (05/05/2024): SOBIA=17.7 events/hour; Pranav SaO2=76%; Ajztpz=845.0 lbs; BMI=52.7 kg/m2, Home Sleep Apnea Testing on09/25/2022 at [facility] [place] (ventricular tachycardia)04/29/2022 Overview (05/05/2024): Added automatically from request for surgery [id number] Clinical trial exam04/23/2022 Overview (05/05/2024): Added automatically from request for surgery [id number] A-fib04/21/2022Lower abdominal pain01/30/2022pinal stenosis of lumbar region with neurogenic nckjyjcdjbfe97/18/2022pondylosis of lumbosacral region without myelopathy or htlznhuzbkmuj49/18/2022Essential ezfkfpbkqwsf82/12/2020Chest pain 07/27/20163356Ywytcfi21/15/2161Ydoqb78/15/6230Pavagzo74/15/2017Lightheadedness 07/27/2016 Encounters DateTypeDepartmentCare FvwtEehhwjpdlok40/23/2025 10:50 AM EDTOffice Visit [facility] [address] [facility] [address] [place] [address] Lakshmi Viramontes MD Acute URI (Primary Dx); ETD (Eustachian tube dysfunction), right12/05/2024amboo flowsheet [facility] [address] [place] [address] Lakshmi Viramontes MD 12/05/2024Travelfrom Last 3 Months Immunizations ImmunizationAdministration DatesNext VrvSLII-JxI-8, Qumebkqroyb72/23/2021 Family History Medical HistoryRelationNameCommentsCancerFatherCancerMotherRelationNameStatus CommentsFatherDeceasedMotherDeceased Social History Tobacco UseTypesPacks/DayYears UsedDateSmoking Tobacco: NeverSmokeless Tobacco: Never Tobacco Cessation:Counseling Given: Not Answered Alcohol UseStandard Drinks/WeekCommentsNot Currently0 (1 standard drink = 0.6 oz pure alcohol)CommentsUnknownSex and Gender InformationValueDate Recorded Sex Assigned at BirthNot on fileLegal QazHsjnfs39/15/2023 6:41 PM EDTGender IdentityNot on fileSexual OrientationNot on file Last Filed Vital Signs Vital SignReadingTime TakenCommentsBlood Hroghdyp361/9412/05/2024 10:45 AM EDT Ovpwg502012/05/2024 10:45 AM EDTTemperature--Respiratory Rate--Oxygen Saturation-- Inhaled Oxygen Concentration--Tizwfs880 kg (275 lb)12/05/2024 10:45 AM EDTHeight 162.6 cm (5' 4 )12/05/2024 10:45 AM EDTBody Mass Index47. 10:45 AM EDT Plan of Treatment DateTypeDepartmentCare Team (Latest Contact Info)Urmlipaeqjx52/30/2026 10:20 AM EDTOffice Visit [facility] [address] [facility] [address] [place] [address] Lakshmi Viramontes MD [address] [facility] [address] [place] [address] Health MaintenanceDue DateLast DoneCommentsCT Igaxfasctlok1951FIT-DNA 1950FIT1950FOBT1950 5306Jibynurliwaba72/08/9525Pfskduvoe10/08/1991 Pneumococcal Vaccine: 65+ Years (1 of 1 - PCV)2001COVID-19 Vaccine ( season)/, 01/04/2021, 12/17/2020Influenza Vaccine (#1)11/13/20247313Qpfbgchncor15, 02/09/2023, 07/06/2018Colorectal Cancer Iajtzpcpz47/28/2033 Medical Devices ImplantedTypeAreaManufacturerDevice IdentifierShelf Expiration DateModel / Serial / LotCardiac PacemakerCardiac PacemakerHeart Insurance * Guarantor: Vero Sadler TypeRelation to PatientDate of BirthPhone Billing AddressPersonal/IsuyroFubu1950 [address] [address] Care Teams Team MemberRelationshipSpecialtyStart DateEnd Date Jeremiah Arvizu MD [address] [place] [address] PCP - GeneralFamily Medicine08/02/24
--- OUTSIDE RECORDS SUMMARY | 2025-02-09 07:59 | XMS_ITS | Clinical Summary ---
Author Organization [facility] Address [address] [place] [address] Care Team Providers Care Coordinator Skill Training Program Name Role Phone Jeremiah Arvizu MD Primary Care Provider [phone] Social History Tobacco UseTypesPacks/DayYears UsedDateSmoking Tobacco: Never Assessed CommentsUnknownSex and Gender InformationValueDate RecordedSex Assigned at Not on fileLegal JzkIbkxat08/14/2017 1:53 PM EDTGender IdentityFemaleSexual OrientationNot on file Plan of Treatment Health MaintenanceDue DateLast DoneCommentsDEXA SCAN FAYZQDNSAA1950 HEPATITIS C VIRUS EXJTAVUSW13/08/1214GGMTTHN1951TDAP (ADULT)1970 CERVICAL CANCER SCREENING NQQOOWJVMP95/08/1972LIPID GZBWEZGVT20/08/1991MAMMOGRAM SCREENING MRFAKWYRAT64/08/1991COLORECTAL CANCER SCREENING MBMRZBXTSB59/08/1996 PNEUMOCOCCAL VACCINE SERIES (1 of 1 - PCV)2001ZOSTER (SHINGLES) VACCINE (1 of 2)2001COVID-19 VACCINE ( - season)2024INFLUENZA VACCINE (#1)2024RSV VACCINE (1 - 1-dose 75+ series)2026HEP B VACCINEAged Out No longer eligible based on patient's age to complete this topic Insurance Care Teams Team MemberRelationshipSpecialtyStart DateEnd Date Jeremiah Arvizu MD PCP - GeneralFamily Medicine06/26/16
--- NOTE | 2025-02-09 08:00 | CA_ITS ---
Patient Name: JUSTIN COLLINS MR#: [id number] : 1950 Exam Date: 02/09/2025 Ordering Doctor: DR JAMES AVALOS M.D. ECHOCARDIOGRAM REPORT PROCEDURE: CA ECHO DOPPLER COMPLETE INDICATIONS: Chest pain, pacemaker, COPD, hypertension, h/o [place] COMPARISON: None. DESCRIPTION: COMPLETE ECHOCARDIOGRAM Real-time transthoracic echocardiography with 2D, M-mode, spectral and color flow Doppler performed. QUALITY: Technical quality was good. LEFT VENTRICLE: Mild dilatation. Thickened septal wall. There is hypokinesis of the basal inferior and inferolateral shah. Global systolic function is normal. Estimated left ventricular ejection fraction is 55%. LV EF: Normal left ventricular ejection fraction, (>55%). DIASTOLIC: Diastolic function is indeterminate. ATRIAL SEPTUM: LEFT ATRIUM: Severe dilatation. RIGHT ATRIUM: Mild dilatation. RIGHT VENTRICLE: Normal chamber size. Normal systolic function. Pacer wire present. TRICUSPID VALVE: Normal mobility and thickness. No stenosis with trivial regurgitation. Unable to assess right-sided pressure due to the lack of measurable tricuspid regurgitation. MITRAL VALVE: Normal mobility and thickness. No evidence of mitral valve stenosis. Mild mitral annular calcification. Trivial mitral regurgitation. AORTIC VALVE: Normal trileaflet appearance. No visible sclerosis. Normal leaflet mobility. No evidence of aortic valve stenosis. No aortic regurgitation. AORTIC ROOT: Normal diameter and appearance, measuring 3.5 cm. PULMONIC VALVE: Normal thickness and mobility. No stenosis. No regurgitation. PERICARDIUM: No evidence of pericardial effusion. IVC: Collapses with inspiration. IVC is normal in size. PLEURA: CONCLUSION: 1. Mildly dilated left ventricle with normal global systolic function. There is hypokinesis of the basal inferior and inferolateral shah. Estimated LVEF is 55%. 2. Normal right ventricular size and systolic function. 3. Severe left atrial dilatation. 4. No significant valvular dysfunction. 5. Unable to assess right-sided pressures due to lack of measurable tricuspid regurgitation. Adult Echocardiography Procedure Report Left Ventricle LVEDD (3.7 - 5.6 cm): 5.89 cm LVESD (2.2 - 4.0 cm): 3.40 cm LVIVS thickness (0.6 - 1.2 cm): 1.24 cm LVPW thickness (0.5 - 1.0 cm): 0.92 cm e': 0.11 m/s E - e': 9.77 LVOT Max Gradient: 4.66 mm[Hg] LVOT Area (cm2): 1.08 m/s Peak Velocity (LVOT): 1.08 m/s Mean Velocity (LVOT): 0.68 m/s LVOT Diameter 2.27 cm Left Ventricular Ejection Fraction: 55% Left Atrium LA Volume Index (2D A2C): 61.37 ml/m2 Left Atrium Systolic Dimension: 4.42 cm Mitral Valve MV E to A Ratio: 1.32 Mitral Valve A-Wave Peak Velocity: 0.78 m/s Mitral Valve E-Wave Peak Velocity: 1.03 m/s Right Ventricle Aorta AO Root Diam: 3.49 cm Aortic Valve AoV Area ([place]): 2.89 cm2, 2.89 cm2 AoV Area (VTI): 2.86 cm2, 2.86 cm2 Peak Velocity(Antegrade Flow): 1.51 m/s Peak Gradient(Antegrade Flow): 9.10 mm[Hg] Mean Velocity(Antegrade Flow): 0.95 m/s Mean Gradient(Antegrade Flow): 4.30 mm[Hg] Velocity Time Integral: 38.49 cm Tricuspid Valve Pulmonic Valve Mean Gradient: 3.27 mm[Hg] Mean Velocity: 0.84 m/s Peak Velocity: 1.29 m/s Peak Gradient: 6.65 mm[Hg] Right Atrium Right Atrium Systolic Pressure: 45.76 ml, 45.76 ml Dictated by: Tobi Landin M.D. on 02/12/2025 at 09:35 Approved by: Tobi Landin M.D. on 02/12/2025 at 09:46
== END 2025-02-09 07:56 | disposition home or self-care (01) ==
LOC: CARD 07:56
PROVIDERS: PCP Family Medicine; Visit Provider Internal Medicine Interventional Cardiology
DX: R70.0 Elevated erythrocyte sedimentation rate (principal)
CPT/HCPCS: 93306

== ENCOUNTER 2025-02-12 06:43 | Day surgery (SDC) | payer MEDICARE, SELFPAY ==
--- OUTSIDE RECORDS SUMMARY | 2024-08-15 06:15 | XMS_ITS ---
Author Organization The [facility] in [place] Address [address] [place] [address] Care Team Providers Care Rail Crew Member Name Role Phone Dontrell Arvizu Primary Care Provider Beatriz Campos Unavailable [phone] REASON FOR VISIT MD Encounters Encounter Location Date Provider Diagnosis [facility] Oncology [address] [place] [address] 08/15/2024 Beatriz Campos Plan Of Treatment No Information Progress Notes * Vero COLLINS MDOB:[birth year] (74 yo F)Acc No.[id number]:08/15/2024 UNLOCKED PROGRESS NOTE Progress Notes Patient: Vero FIELD :Juliann Campos M.D.:1950???Age:74 Y ???Sex:FemaleDate:08/15/2024Phone:[phone]:[address]Pcp:Dontrell Arvizu Subjective: * Chief Complaints: * 1 . MD. * Medical History: Objective: * Vitals: Assessment: Plan: * Treatment: * * Electronic signature of Beatriz Campos MD, [id number] on 02/12/2025 at 06:47 AM ESTSign off status: PendingVisit Status:?CANC (Cancelled) * Provider: Noel Campos M.D. Date: 0 08/15/2024 Generated for Printing/Faxing/eTransmitting on:?02/12/2025 06:47 AM EST
--- OUTSIDE RECORDS SUMMARY | 2024-08-15 10:00 | XMS_ITS ---
Author Organization The [facility] in [place] Address [address] [place] [address] Care Team Providers Care Blind Lacer Name Role Phone Dontrell Arvizu Primary Care Provider [phone] Beatriz Campos Unavailable [phone] REASON FOR VISIT MD Encounters Encounter Location Date Provider Diagnosis [facility] Oncology [address] [place] [address] 08/15/2024 Beatriz Campos Plan Of Treatment No Information Progress Notes * Vero COLLINS MDOB:[birth year] (74 yo F)Acc No.[id number]:08/15/2024 UNLOCKED PROGRESS NOTE Progress Notes Patient: Vero FIELD :Juliann Campos M.D.:1950???Age:74 Y ???Sex:FemaleDate:08/15/2024Phone:[phone]:[address]Pcp:Dontrell Arvizu Subjective: * Chief Complaints: * 1 . MD. * Medical History: Objective: * Vitals: Assessment: Plan: * Treatment: * * Electronic signature of Beatriz Campos MD, [id number] on 02/12/2025 at 06:47 AM ESTSign off status: PendingVisit Status:?CANC (Cancelled) * Provider: Noel Campos M.D. Date: 0 08/15/2024 Generated for Printing/Faxing/eTransmitting on:?02/12/2025 06:47 AM EST
--- OUTSIDE RECORDS SUMMARY | 2024-08-22 10:00 | XMS_ITS ---
Author Organization [facility] in [place] Address [address] [place] [address] Care Team Providers Care Automotive Power Electronics Engineer Name Role Phone Dontrell Arvizu Primary Care Provider Beatriz Campos Unavailable [phone] REASON FOR VISIT MD Encounters Encounter Location Date Provider Diagnosis [facility] On[facility] [address] [place] [address] 08/22/2024 Beatriz Campos Plan Of Treatment No Information Progress Notes * Vero COLLINS MDOB:[birth year] (74 yo F)Acc No.[id number]:08/22/2024 UNLOCKED PROGRESS NOTE Progress Notes Patient: Vero FIELD :Juliann Campos M.D.:1950???Age:74 Y ???Sex:FemaleDate:08/22/2024Phone:[phone]:[address]Pcp:Dontrlel Arvizu Subjective: * Chief Complaints: * 1 . MD. * Medical History: Objective: * Vitals: Assessment: Plan: * Treatment: * * Electronic signature of Beatriz Campos MD, [id number] on 02/12/2025 at 06:47 AM ESTSign off status: PendingVisit Status:?ANSPH (Voice) * Provider: Noel Campos M.D. Date: 0 08/22/2024 Generated for Printing/Faxing/eTransmitting on:?02/12/2025 06:47 AM EST
--- OUTSIDE RECORDS SUMMARY | 2025-01-23 04:30 | XMS_ITS ---
Author Organization [facility] in [place] Address [address] [place] [address] Care Team Providers Care News Photographer Name Role Phone Dontrell Arvizu Primary Care Provider [phone] Beatriz Campos Unavailable [phone] REASON FOR VISIT MD Encounters Encounter Location Date Provider Diagnosis [facility] On[facility] [address] [place] [address] 01/23/2025 Beatriz Campos Plan Of Treatment No Information Progress Notes * Vero COLLINS MDOB:[birth year] (74 yo F)Acc No.[id number]:01/23/2025 UNLOCKED PROGRESS NOTE Progress Notes Patient: Vero FIELD :Juliann Campos M.D.:1950???Age:74 Y ???Sex:FemaleDate:01/23/2025Phone:[phone]:[address]Pcp:Dontrell Arvizu Subjective: * Chief Complaints: * 1 . MD. * Medical History: Objective: * Vitals: Assessment: Plan: * Treatment: * * Electronic signature of Beatriz Campos MD, [id number] on 02/12/2025 at 06:47 AM ESTSign off status: PendingVisit Status:?PEN (Pending) * Provider: Noel Campos M.D. Date: 03/25/2024 Generated for Printing/Faxing/eTransmitting on:?02/12/2025 06:47 AM EST
--- OUTSIDE RECORDS SUMMARY | 2025-01-31 09:00 | XMS_ITS | Encounter Summary ---
Author Organization [facility] Address [address] [place] [address] Care Team Providers Care Ssds Mk 2 Advanced Operator Name Role Phone Jeremiah Arvizu MD Primary Care Provider [phone] Encounter Details DateTypeDepartmentCare Team (Latest Contact Info)Qsiorvotzmx82/19/2025 9:00 AM ESTOffice Visit [facility] [place] [address] [place] [address] Tato Salcido MD [address] [facility] [address] [facility] [place] [address] Cardiac pacemaker in situ (Primary [...] heating?Not hard at all01/05/2023HQ-2AnswerDate RecordedPatient Health Questionnaire-2 Pitnt672UT Safety & Environment AnswerDate RecordedWithin the last [...] 01/05/2023CommentsNoSex and Gender InformationValueDate RecordedSex Assigned at CrcniFupuld73/06/2025 4:22 PM EDTLegal DsiHqrbiz72/29/2022 9:47 PM EDTGender QrbweeoeZweeyw10/06/2025 4:22 PM EDTSexual OrientationHeterosexual or Mrvlqbdl19/06/2025 4:22 PM EDTdocumented as of this encounter Last Filed Vital Signs Vital SignReadingTime TakenCommentsBlood Znwdvuti667/7311 8:40 AM EST Vpzua0187 8:40 AM ESTTemperature--Respiratory Rate--Oxygen Lzeranevvh65% 01/31/2025 8:40 AM ESTInhaled Oxygen Concentration--Flcvho600 kg (275 lb) 01/31/2025 8:40 AM HLETffdag896.6 cm (5' 4 )01/31/2025 8:40 AM ESTBody Mass Index47. 8:40 AM ESTdocumented in this encounter Progress Notes * Tato Salcido MD - 01/31/2025 9:00 AM EST Images from the original note were not included. [facility] Cardiology Clinic Note Chief Complaint: Patient [...] of this year. She is seeing a metal mockup maker currently; workup has revealed a significantly elevated [...] kidney disease, COPD (chronic obstructive pulmonary disease) ([facility]), Hypertension, Myocardial infarction ([facility]), and Obstructive sleep apnea [...] in 1-2 months Tato Salcido MD, MPH, [facility], [facility], [facility] Interventional Cardiology Pager Email: [email or web address] documented in this encounter Plan of Treatment DateTypeDepartmentCare Team (Latest Contact Info)Irbgagexkas25/01/2025 9:00 AM ESTAncillary Procedure [facility] [address] [place] [address] Adjustment and management of cardiac iqirfbrsk42/16/2025 10:30 AM ESTOffice Visit [facility] [address] [place] [address] Irvin Posada MD [address] [place] [address] documented as of this encounter Visit Diagnoses Diagnosis Cardiac pacemaker in situ- Primary Precordial pain Adjustment and management of cardiac pacemaker Fitting and adjustment of cardiac pacemaker documented in this encounter Care Teams Team MemberRelationshipSpecialtyStart DateEnd Date Jeremiah Arvizu MD [address] [place] [address] [facility] - Yycwlsw69/14/22documented as of this encounter
--- OUTSIDE RECORDS SUMMARY | 2025-02-12 06:46 | XMS_ITS | CCD ---
Author Organization [facility] Providers Care Chancery Clerk Name Role Phone PHYSICIAN, DEFAULT Unavailable Unavailable PHYSICIAN, DEFAULT Unavailable Unavailable DEBBIE BHATIA Unavailable Unavailable JOEYY ., DR LEWIS Consulting Unavailable HOY ., DR LEWIS Attending Unavailable HOY ., DR LEWIS Primary Care Unavailable HOY ., DR LEWIS Admitting Unavailable [place], DR RAJI Odonnell Consulting Unavailable HOY ., [...] Unavailable HOY ., DR LEWIS Admitting Unavailable [place], DR RAJI Odonnell Consulting Unavailable Debbie Bhatia Primary Care Physician Debbie Bhatia MD Primary Care Provider [phone] NKANSAH-AMDENICE, ROSETTA Attending Unavail able NKANSAH-AMDENICE, ROSETTA Attending Unavail able NKANSCLAUDIO-AMDENICE, ROSETTA Referring Unavail able NKANSAH-AMANKRA, ROSETTA Admitting Unavail able NKANSAH-ANDREEAANKRA, ROSETTA Attending Unavail able Debbie Bhatia Referring Unavailable NKANSCLAUDIO-KEVANRA, ROSETTA Attending Unavail able Debbie Bhatia MD Primary Care Provider [phone] Kal Molina MD Attending Provider Debbie Bhatia MD Primary Care Provider [phone] MD ROSETTA MENDEZ Admitting Unav ailable MD ROSETTA MENDEZ Attending Unav ailable MD ROSETTA MENDEZ Referring Unav ailable MD ROSETTA MENDEZ Attending Unav ailable MD ROSETTA MENDEZ Attending Unav ailable MD ROSETTA MENDEZ Attending Unav ailMD ROSETTA Bryan Referring Unav ailable MD ROSETTA MENDEZ Admitting Unav ailable Debbie Bhatia MD Primary Care Provider [phone] Sarbjit MD, Lizette Attending Provider [phone] Tracy BELTRÁN, Imjavier Other Provider Sarbjit [...] Care Provider Tracy BELTRÁN, Imjavier Attending Provider Tracy BELTRÁN, Imjavier Other Provider Asaad, Imad Admitting Unavailable Asaad, Imad Attending Unavailable Debbie Bhatia Primary Care Unavailable Asaad, Imjavier Attending Unavailable Debbie Bhatia Primary Care Unavailable Asaad, Imad Admitting Unavailable Sarbjit, Lizette Admitting Unavailable Sarbjit, Lizette Attending Unavailable Debbie Bhatia Primary Care Unavailable Allergies Allergy ClassificationReported Allergen(s)Allergy TypeDate of OnsetReaction(s) Facility (10 sources)Penicillins; Translations: [PENICILLINS]Drug allergy (disorder) 89-22-9257JWQ, Unknown ReactionThe [facility] RepositoryComment on above:yeast infection (7 sources)Adhesive Tape; Translations: [adhesive tape]Allergy to substance 34-18-0101gzesPremier Health [facility] (7 sources)Adhesive bandage; Translations: [Adhesive Bandage]Drug allergyWeal (disorder)[facility] (17 sources)PenicillinsDrug Qomqwpl11-89-8459[facility] (5 sources)fluticasone; Translations: [fluticasone]Drug Csrmmjv48-91-7024 [facility] (1 source)fluticasone; Translations: [FLUTICASONE PROPIONATE]Drug Allergy 79-13-1203TganixvbjgAultman Hospital Repository (1 source)PenicillinsDrug allergy (disorder)02-80-1931HickpcrthAdena [facility] Repository Medications Current Medications MedicationDrug Class(es)DatesSig (Normalized)Sig (Original)[id number] 200 actuat albuterol 0.09 mg/actuat metered dose inhaler (20 sources)beta2-Adrenergic AgonistStart: 55-83-2811qrzl 2.5 mg by inhalation every four to six hours as needed for wheezingAlbuterol Sulfate 2.5 mg /3 mL (0.083 %) solution for nebulization Active 2.5 MG INHALATION EVERY 4-6 HOURS as needed for shortness of breath or wheezing January 05, 2024 11:00pm Complies with drugtherapyStart: 88-18-8464ozcr 1 puff(s) by inhalation four times daily [...] Date: 11/25/22 Status: Ordered Repeat number: 1Start: 45-50-7220yega 2 puff(s) by inhalation every four hoursAlbuterol (Eqv-ProAir HFA) 2 puff(s), Inhalation, q4hr Shortness of breath or wheezing, Refill(s) 0Start Date: 11/25/22 Status: Ordered Repeat number: 1Start: 45-49-1490tbjf 2 puff(s) by inhalation every four hoursAlbuterol (Eqv-ProAir HFA) 2 puff(s), Inhalation, q4hr Shortness of breath or wheezing, Refill(s) 0Start Date: 11/25/22 Status: Orderedtake 2 puff(s) by inhalation every four hoursalbuterol HFA 90 mcg/act inhaler Inhale 2 puffs every 4 (four) hours if needed Activeaspirin 81 mg delayed release oral tablet (20 sources)Platelet Aggregation Inhibitor, Nonsteroidal Anti-inflammatory Drug Start: 91-86-5365Zmbqhmk (Adult Low Dose Aspirin) 81 mg tablet,delayed release (DR/EC) Active 81 MG PO Daily 2023 11:00pm Complies with drug therapyazelastine hydrochloride 0.137 mg/actuat metered dose nasal spray (13 sources)Histamine-1 Receptor AntagonistStart: 80-41-6591Bgccvftekv HCl 137 MCG/SPRAY solution every 12 (twelve) hours 06/08/2024 Activeazithromycin 250 mg oral tablet (2 sources)Macrolide AntimicrobialStart: 12-05-2024 End: 28-67-3437ansmiwecsgnl (Zithromax Z-Maicol) 250 MG tablet Indications: Acute URI Take 2 tabs (500 mg) by mouth today, then 1 tab (250 mg) daily for 4 days. 6 tablet 12/05/2024 12/10/2024 Activebetamethasone 0.5 mg/ml / clotrimazole 10 mg/ml topical cream (13 sources)Azole Antifungal, CorticosteroidStart: 31-55-2408yzvsjqxnhjty- betamethasone (Lotrisone) cream APPLY A SMALL AMOUNT TO AFFECTED AREA TWICE A DAY *USESPARINGLY* 11/02/2024 ActiveStart: 59-94-2293udhmfszlwmcon-clotrimazole Top 0.05%-1% Crm 15 gram Refill(s) 0 Start Date: 03/31/24 Status: OrderedRepeat number: 1Start: 44-23-7682Cacmnkndwhws-Betamethasone 1-0.05 % cream Active 1 APPLIC TOPICAL Daily as needed for rash January 05, 2024 11:00pm Complies with drug therapyStart: 91-96-4935Hnejmjvqdnym-Betamethasone 1-0.05 % cream Active APPLIC TOPICAL January 06, 2024 12:00ambumetanide 1 mg oral tablet (11 sources)Loop DiureticStart: 92-32-0594Wobznozjdf 1 mg tablet Active 1 MG PO As Directed January 05, 2024 11:00pm Complies with drug therapycalcium carbonate 600 mg / cholecalciferol 0.01 mg oral tablet (20 sources)Vitamin DStart: 44-66-5287jwqr 2 tablets by mouth in the morning Calcium Carb-Cholecalciferol 600-10 MG-MCG tablet TAKE TWO TABLETS BY MOUTH IN THE MORNING 10/23/2024 ActiveStart: 29-55-7155hyac 2 tablets by mouth in the morningCalcium Carbonate-Vitamin D3 600 mg-10 mcg (400 unit) tablet Active 0 .ROUTE .COMPLEX 180 October 23, 2024 10:49am TAKE TWO TABLETS BY MOUTH IN THE MORNING Complies with drug therapyStart: 01-06-2024 End: 41-71-7986gfdg 2 tablets by mouth once daily in the morningCalcium Carbonate-Vitamin D3 600 mg-10 mcg (400 unit) tablet Discontinued 2 TAB PO Every morning 180 1 June 27, 2024 11:27am October 23, 2024 10:50amStart: 07-20-2023 End: 41-94-6357lzpq 2 tablets by mouth in the morningCalcium Carb- Cholecalciferol 600-10 MG-MCG tablet Take 2 tablets by mouth in the morning. 07/20/2023 07/19/2024 Activecarvedilol 12.5 mg oral tablet (13 sources)alpha-Adrenergic [place], beta-Adrenergic BlockerStart: 10-07-2024 take 1 tablet by mouth twice daily at mealtimecarvedilol (Coreg) 12.5 MG tablet TAKE 1 TABLET BY MOUTH TWICE A DAY WITH FOOD FOR 90 DAYS 10/07/2024 ActiveStart: 27-22-1392vnhn 12.5 mg by mouth twice dailyCarvedilol Active 12.5 MG PO Twice daily January 06, 2024 12:00amStart: 44-25-3245Iiweugvslg 25 mg tablet Active 12.5 MG PO Twice daily January 05, 2024 11:00pm Complies with drugtherapy cephalexin 500 mg oral capsule (10 sources)Cephalosporin AntibacterialStart: 07-13-2024 End: 67-50-1334alwp 1 capsule by mouth every twelve hourscephalexin (Keflex) 500 MG capsule TAKE 1 CAPSULE BY MOUTH EVERY 12 HOURS FOR 5 DAYS 07/13/202411/14 Discontinued (Therapy completed)ciprofloxacin 3 mg/ml / dexamethasone 1 mg/ml otic suspension (3 sources)Corticosteroid, Quinolone AntimicrobialStart: 08-09-2024 End: 94-29-7826dcondmugmslue-dexAMETHasone (CiproDEX) otic suspension Indications: ETD (Eustachian tube dysfunction), right Administer 4 drops into the right ear in the morning and 4 drops before bedtime. Do all this for 7 days. 7.5 mL 08/09/2024 08/16/2024 Activediclofenac potassium 50 mg oral tablet (2 sources)Nonsteroidal Anti-inflammatory DrugStart: 49-22-9094xgum 1 tablet by mouth once dailydiclofenac potassium 50 mg oral tablet 50 mg = 1 tab(s), Oral, Daily, Refills(s) 0 Start Date: 11/25/22 Status: Ordereddoxycycline monohydrate 100 mg oral capsule (9 sources)Tetracycline-class DrugStart: 50-86-4200eriwozgpwaw (Monodox) 100 MG capsule 08/08/2024 Activefluticasone propionate 0.05 mg/actuat metered dose nasal spray (6 sources)CorticosteroidStart: 05-09-2024 End: 92-64-1324znzoqimkmpb (Flonase) 50 MCG/ACT nasal spray Indications: OME (otitis media with effusion), right 2sprays on the right twice daily. Shake gently. Before first use, prime pump. After use, clean tip and replace cap. 48 g 3 05/09/2024 06/20/2024 Discontinued (Side effects)hydrALAZINE hydrochloride 100 mg oral tablet (16 sources)Arteriolar VasodilatorStart: 33-94-1970ouyc 1 tablet by mouth twice dailyHydralazine 100 mg tablet Active 100 MG PO Twice daily October 05, 2024 10:09am Complies with drug therapyStart: 11-25-2022 End: 64-57-0047loiy 1 tablet by mouth three times dailyHydralazine 100 mg tablet Discontinued 100 MG PO Three times daily January 05, 2024 11:00pm October 05, 2024 10:10amisosorbide dinitrate 10 mg oral tablet (4 sources)Nitrate VasodilatorStart: 08-52-8932lxyb 1 tablet by mouth once daily isosorbide dinitrate 20 mg Tab 20 mg = 1 tab(s), Oral, Daily, Refills(s) 0 Start Date: 11/25/22 Status: OrderedStart: 63-26-8773fekd 1 tablet by mouth once daily isosorbide dinitrate 10 mg Tab 10 mg = 1 tab(s), Oral, Daily, Refills(s) 0 Start Date: 11/25/22 Status: Orderedlevothyroxine sodium 0.088 mg oral tablet (20 sources)l-ThyroxineStart: 68-38-0660zvkn 1 tablet by mouth once daily Levothyroxine 88 mcg tablet Active 88 MCG PO Daily June 26, 2024 11:00pm Complies with drug therapyStart: 02-09-3897rlsz 1 capsule by mouth once daily levothyroxine 88 mcg (0.088 mg) oral capsule 88 mcg = 1 cap(s), Oral, Daily, Refills(s) 0, Thyroid Start Date: 06/26/24 Status: Ordered Repeat number: 1Start: 01-06-2024 End: 54-01-2485nvau 1 capsule by mouth once dailyLevothyroxine 100 mcg capsule Discontinued 100 MCG PO Daily January 05, 2024 11:00pm June 27, 2024 10:17amStart: 86-77-9766nsfp 1 tablet by mouth once dailylevothyroxine 100 mcg (0.1 mg) Tab 100 mcg = 1 tab(s), Oral, Daily, Refills(s) 0 Start Date: 11/25/22 Status: Orderedtake 1 tablet by mouth before mealtimelevothyroxine (Synthroid, Levoxyl) 100 MCG tablet Take 100 mcg by mouth in the morning. Take beforemeals. Activeliothyronine sodium 0.025 mg oral tablet (20 sources)l-TriiodothyronineStart: 22-70-3907wzjo 1 tablet by mouth once daily Liothyronine 25 mcg tablet Active 37.5 MCG PO Daily January 05, 2024 11:00pm Complies with drug therapyStart: 24-70-6775ssgv 1 tablet by mouth once daily Liothyronine 25 mcg tablet Active 37.5 MCG PO Daily January 06, 2024 12:00am Start: 82-87-2967qhyb 37.5 ug by mouth once dailyLiothyronine Active 37.5 MCG PO Daily January 06, 2024 12:00amStart: 35-40-7913Muebbsy 25 mcg Tab 37.5 mcg = 1.5 tab(s), Oral, Daily, Refills(s) 0 Start Date: 11/25/22 Status: Ordered Repeat number: 1Start: 20-84-4555iith 1 tablet by mouth once dailyCytomel 25 mcg Tab 25 mcg = 1 tab(s), Oral, Daily, Refills(s) 0 Start Date: 11/25/22 Status: Ordered take 1.5 tablets by mouth in the morningliothyronine (Cytomel) 25 MCG tablet Take 1.5 tablets by mouth in the morning. Activelisinopril 10 mg oral tablet (20 sources)Angiotensin Converting Enzyme InhibitorStart: 75-24-4113trhw 1 tablet by mouth once dailyLisinopril 10 mg tablet Active 10 MG PO Daily January 05, 2024 11:00pm Complies with drug therapyStart: 35-78-4717valh 1 tablet by mouth once dailylisinopril 5 mg Tab 5 mg = 1 tab(s), Oral, Daily, Refills(s) 0 Start Date: 11/25/22 Status: Orderedlovastatin 20 mg oral tablet (20 sources)HMG-CoA Reductase InhibitorStart: 06-89-5084bqzr 1 tablet by mouth once dailyLovastatin 20 mg tablet Active 20 MG PO Daily January 05, 2024 11:00pm Complies with drug therapymagnesium oxide 400 mg oral tablet (7 sources)Start: 76-24-3795hwgl 1 tablet by mouth once dailyMagnesium Oxide 400 mg (241.3 mg magnesium) tablet Active 0 .ROUTE .COMPLEX 90 October 23, 2024 1 0:51am TAKE 1 TABLET BY MOUTH DAILY Complies with drug therapyStart: 06-27-2024 End: 21-06-0955pdme 1 tablet by mouth once dailyMagnesium Oxide 400 mg magnesium tablet Discontinued 400 MG PO Daily 90 June 26, 2024 11:00pm October 23, 2024 10:51amMagnesium Sulfate (2 sources)Start: 79-52-7229njmnjjuhx sulfate Refills(s) 0 Start Date: 07/13/24 Status: Ordered Repeat number: 1ondansetron 4 mg disintegrating oral tablet (2 sources)Serotonin-3 Receptor AntagonistStart: 32-43-8881skrd 1 tablet by mouth every six hours as needed for nauseaondansetron 4 mg Dis Tab 4 mg = 1 tab(s), Oral, q6hr, PRN Nausea/Vomiting, Refills(s) 0 Start Date:11/25/22 Status: Orderedpantoprazole 40 mg delayed release oral tablet (16 sources)Proton Pump InhibitorStart: 88-72-7444xmkb 1 tablet by mouth twice dailyPantoprazole 40 mg tablet,delayed release (DR/EC) Active 40 MG PO Twice daily June 27, 2024 10:17am Complies with drug therapyStart: 01-06-2024 End: 27-79-5663swbc 1 tablet by mouth once dailyPantoprazole 40 mg tablet,delayed release (DR/EC) Discontinued 40 MG PO Daily January 05, 2024 11:00pm June 27, 2024 10:19amphenazopyridine hydrochloride 100 mg oral tablet (1 source)Start: 07-13-2024 End: 14-48-9735ijnh 1 tablet by mouth three times dailyPyridium [...] (6 sources)Calculi Dissolution Agent, Anti-coagulantStart: 01-06-2024 End: 05-94-8076Awv Picosulf-Mag Ox-Citric Ac (Clenpiq) 10 mg-3.5 gram- 12 gram/160 mL solution Discontinued ML PO Twice daily January 05, 2024 11:00pm February 14, 2024 11:05am FreeTextSiml at 3pm, 160ml at 9pm the day prior to colonoscopy Orally BID; Note: Source Status: Start; Refills: 0; Qty: 1 Box; Provider: Musa Bearden Hhyoscyamine sulfate 0.125 mg oral tablet (6 sources)Start: 01-06-2024 End: 68-12-7796xyjo 1 tablet by mouth four times dailyHyoscyamine Sulfate 0.125 mg tablet Discontinued 0.125 MG PO Four times daily January 05, 2024 11:00pm February 14, 2024 11:04ampolyethylene glycol 3350 798735 mg / potassium chloride 2970 mg / sodium bicarbonate 6740 mg / sodium chloride 5860 mg / sodium sulfate 35955 mg powder for oral solution (7 sources)Osmotic LaxativeStart: 07-24-2024 End: 39-14-0825Caz 3350-Electrolytes (Golytely) 236-22.74-6.74 -5.86 gram recon soln Discontinued 240 ML PO Q10M 4000 1 0 July 23, 2024 11:00pm January 22, 2025 7:26am until fecal effluent is clearStart: 06-28-2024 End: 23-91-7543Acd 3350-Electrolytes (Golytely) 236-22.74-6.74 -5.86 gram recon soln Discontinued 240 ML PO Q10M 4000 1 0 June 27, 2024 11:00pm July 19, 2024 10:28am follow instructions given at officesodium polystyrene sulfonate 45383 mg powder for oral suspension (14 sources)Start: 06-27-2024 End: 69-51-2050uunt 15 g by mouth three times weeklySodium Polystyrene Sulfonate powder Discontinued 15 GM PO 3 Times a week 150 June 27, 2024 11:56am June 27, 2024 1:04pmStart: 24-73-3187yjcx 15 g by mouth three times weeklySodium Polystyrene Sulfonate powder Active 15 GM PO 3 Times a week 150 June 27, 2024 11:56amStart: 02-14-2024 End: 44-99-9949ztrb 15 g by mouth three times weeklySodium Polystyrene Sulfonate powder Discontinued 15 GM PO 3 Times a week 150 6 June 27, 2024 10:56am June 27, 2024 12:04pmtraMADol hydrochloride 50 mg oral tablet (20 sources)Opioid AgonistStart: 08-09-2023 End: 28-68-3464bbpb 1 tablet by mouth twice daily as neededTramadol 50 mg tablet Discontinued 50 MG PO Twice daily as needed January 05, 2024 11:00pm June 132024 10:19am Problems Active Problems Problem ClassificationProblemDateDocumented DateEpisodic/ChronicCardiac dysrhythmias (20 sources)Supraventricular tachycardia; Translations: [Atrial fibrillation] Onset: 88-42-0287BqxbtpwJvbakww kidney disease (20 sources)Chronic kidney disease stage 4; Translations: [Chronic kidney disease, stage 4 (severe)]Onset: 578375-87-0274LpyrgkyLvmkbqj obstructive pulmonary disease and bronchiectasis (20 sources)Chronic obstructive lung disease; Translations: [Chronic obstructive pulmonary disease, unspecified]Onset: 062989-63-5610GcoouotAwzcamtvqd disorders (13 sources)Cardiac pacemaker in situ; Translations: [Presence of cardiac pacemaker]Onset: 066936-09-6652QhrmxsvYuztvbcwba heart failure; nonhypertensive (3 sources)Acute combined systolic (congestive) and diastolic (congestive) heart failure; Translations: [Unspecified diastolic (congestive) heart failure]Onset: 87-46-6817UmrjvluZbravdqn atherosclerosis and other heart disease (20 sources)Coronary arteriosclerosis; Translations: [Atherosclerotic heart disease of [place] coronary artery without angina pectoris]Onset: 05-09-2024 31-04-3258OdnwfprUnwqtrlkxt and other anemia (1 source)Anemia in chronic kidney disease; Translations: [Anemia in chronic kidney disease]Onset: 45-04-0560UmpqfsfDzqhynitp of lipid metabolism (20 sources)Hyperlipidemia, unspecified; Translations: [Pure hypercholesterolemia, unspecified]Onset: 526932-66-2483KqmorygUwbxhqevm hypertension (20 sources)Hypertensive disorder; Translations: [Essential hypertension]Onset: 242510-62-7116FdqysvxSamxdpkzoxqfw symptoms and ill-defined conditions (20 sources)Stress incontinence (female) (male); Translations: [Female stress incontinence]Onset: 00-48-3106EnlehtdHabuwyzy; including migraine (2 sources)Migraine, unspecified, not intractable, without status migrainosus; Translations: [Migraine, unspecified, not intractable, without status migrainosus]Onset: 30-15-9910UejpkpfLpxjxdhs; including migraine (2 sources)Headache; Translations: [Nonintractable headache, unspecified chronicity pattern, unspecified headache type]25-74-6520VmigoghvCjqdvtqeuudl with complications and secondary hypertension (18 sources)Hypertensive heart disease with heart failure; Translations: [Chronic kidney disease due to hypertension]Onset: hronic Osteoporosis (4 sources)Age-related osteoporosis without current pathological fracture; Translations: [AGE-REL OSTEOPOR W/OCURR PATH FX]Onset: 56-18-6403ThusjzqBcewf diseases of bladder and urethra (7 sources)Urethral intrinsic sphincter deficiency; Translations: [Intrinsic sphincter deficiency (ISD)]Onset: 37-04-6529GakonwcsHmybn diseases of kidney and ureters (20 sources)Secondary hyperparathyroidism; Translations: [Secondary hyperparathyroidism of renal origin]Onset: 302714-17-9679VdlkymlHntxz diseases of kidney and ureters (4 sources)Secondary hyperparathyroidism of renal origin; Translations: [Secondary hyperparathyroidism (of renal origin)]Onset: ChronicOther diseases of veins and lymphatics (1 source)Lymphedema, not elsewhere classified; Translations: [LYMPHEDEMA NOT ELSEWHERE CLASSIFIED]Onset: 71-63-4516MobtsibVlsae ear and sense organ disorders (2 sources)Mixed conductive and sensorineural hearing loss, unilateral, right ear, with unrestricted hearing on the contralateral side; Translations: [Mixed hearing loss, unilateral]96-76-2201MlbkupjLudkt ear and sense organ disorders (2 sources)Chronic right myringitis; Translations: [Chronic myringitis, right ear]87-07-4328KccpyjdXeasy ear and sense organ disorders (2 sources)Cerebrospinal fluid otorrhea; Translations: [CSF otorrhea]08-09-2024 EpisodicOther nutritional; endocrine; and metabolic disorders (20 sources)Morbid obesity; Translations: [Morbid (severe) obesity due to excess calories]Onset: 400264-81-0878KjoukurYzmff nutritional; endocrine; and metabolic disorders (7 sources)Hypomagnesemia; Translations: [Hypomagnesemia]29-54-1809RzoewxvNofvp nutritional; endocrine; and metabolic disorders (3 sources)Hypomagnesemia; Translations: [Disorders of magnesium metabolism] Onset: 951853-67-3989TxmrujpGojzs nutritional; endocrine; and metabolic disorders (2 sources)Body mass index 40+ - severely obese; Translations: [Body mass index (BMI) 45.0-49.9, adult]Onset: 073364-66-8717MjfdaotDrelz nutritional; endocrine; and metabolic disorders (7 sources)Hyperuricemia; Translations: [Hyperuricemia without signs of inflammatory arthritis and tophaceous disease]86-74-6691XwxmxucrPinql screening for suspected conditions (not mental disorders or infectious disease) (5 sources)Encounter for screening, unspecified; Translations: [Encounter for screening for malignant neoplasmof colon]Onset: 95-49-2264GvvjhrohNhqkf upper respiratory infections (2 sources)Acute upper respiratory infection; Translations: [Acute upper respiratory infection, unspecified]01-33-7315AvbqamgjZcrscu media and related conditions (2 sources)Chronic right mastoiditis; Translations: [Chronic mastoiditis, right ear]41-12-0198TxhwvpeSanpno media and related conditions (12 sources)Otitis media; Translations: [Unspecified nonsuppurative otitis media, right ear]57-93-0824SlgdnsdjYkmzjlymg heart disease (20 sources)Pulmonary hypertension; Translations: [Secondary pulmonary hypertension]Onset: 892621-15-8669BrmxugdCjqzsvjt codes; unclassified (18 sources)Obstructive sleep apnea syndrome; Translations: [Obstructive sleep apnea (adult) (pediatric)]Onset: 34-47-217809260875-33-3042WqnealpWesstztwj and history of mental health and substance abuse codes (5 sources)Tobacco use and exposure - hcmcteq56-26-3545FfddtboSlsfpnrubyo; intervertebral disc disorders; other back problems (18 sources)Lumbosacral spondylosis without myelopathy; Translations: [Spondylosis without myelopathy or radiculopathy, lumbosacral region]Onset: 232153-03-0609FszsmyiQrxwunx disorders (20 sources)Hypothyroidism, unspecified; Translations: [Hypothyroidism]Onset: 274207-06-1513AvepumiWyrxzwyhsjpw (3 sources)CONTACT W/AND (SUSP) EXPOS COVID-19; Translations: [CONTACT W/AND (SUSP) EXPOS COVID-19]Onset: 22-09-4922Zmtaebesxmsg (1 source)COUGH, UNSPECIFIED; Translations: [COUGH, UNSPECIFIED]Onset: 39-52-6257Yrfizilhajnd (5 sources)Long-term current use of oxjhupb14-01-8331Hanlhylymizt (1 source)Vertebrogenic low back pain; Translations: [Vertebrogenic low back pain]Onset: 11-23-2023 Past or Other Problems Problem ClassificationProblemDateDocumented DateEpisodic/ChronicAbdominal pain (20 sources)Lower abdominal pain; Translations: [Lower abdominal pain, unspecified]Onset: 843059-73-2595YppuwonnLygqwrxl of urinary tract (20 sources)Kidney stone; Translations: [Calculus of kidney]Onset: 03-31-2024 EpisodicCardiac dysrhythmias (20 sources)Palpitations; Translations: [Bradycardia]Onset: 82-97-0868Jgxvdbao Conditions associated with dizziness or vertigo (18 sources)Lightheadedness; Translations: [Dizziness and giddiness]Onset: 802040-14-1304DprfsvdfGbyozdadfv and other anemia (1 source)Anemia, unspecified; Translations: [ANEMIA UNSPECIFIED]Onset: 26-01-3119WacnjjokC Codes: Cut/pierceb (1 source)Contact with other sharp object(s), not elsewhere classified, initial encounter; Translations: [CNTC OTH SHRP OB NOT ELSW CLASS INI]Onset: 08-14-2021 EpisodicFluid and electrolyte disorders (20 sources)Hyperkalemia; Translations: [Hyperkalemia]Onset: 01-26-2024 99-38-0234XjoojivfBjpcalibgcuzupov hemorrhage (1 source)Hemorrhage of anus and rectum; Translations: [Hemorrhage of anus and rectum]Onset: 88-59-6961WhfcodkzNrwkoiq and fatigue (18 sources)Fatigue; Translations: [Other fatigue]Onset: EpisodicNonspecific chest pain (19 sources)Chest pain, unspecified; Translations: [Chest pain]Onset: 07-27-2016 96-14-8990KgwwiefsHqgg wounds of extremities (4 sources)Laceration without foreign body, right lower leg, initial encounter; Translations: [LACERATION W/O FB RT LOW LEG INIT]Onset: 30-86-0201LnpohoafTuhte aftercare (1 source)Other detention (current) drug therapy; Translations: [OTH SURVEILLANCE SUPERVISOR CURRENT DRUG THERAPY]Onset: 10-49-5358EfvobizmWvftb aftercare (20 sources)Long-term current use of aspirin; Translations: [roasterman (current) use of aspirin]Onset: 35-00-9249CgqshneoNesth and unspecified benign neoplasm (1 source)Personal history of colonic polyps; Translations: [PERSONAL HISTORY OF COLONIC POLYPS]Onset: 62-62-9109XgkhxdpvDsqhu and unspecified benign neoplasm (20 sources)History of polyp of colon; Translations: [History of colon polyps] Onset: 780435-25-1918JwtvqiozQsxqv circulatory disease (1 source)Other specified symptoms and signs involving the circulatory and respiratory systems; Translations:[OTH SPEC SX SIGNS INVLV CIRC RS]Onset: 26-82-1456LyhwdsqnZctvs diseases of veins and lymphatics (1 source)Venous insufficiency (chronic) (peripheral); Translations: [VENOUS INSUFF CHRONIC PERIPHERAL]Onset: 63-29-8027EntqiljvAnewh lower respiratory disease (4 sources)Shortness of breath; Translations: [SHORTNESS OF BREATH]Onset: 87-60-4740WluiqoqmQqhbs lower respiratory disease (20 sources)Multiple nodules of lung; Translations: [Other nonspecific abnormal finding of lung field]Onset: 546843-66-1887NpwtnzuzLvouw lower respiratory disease (18 sources)Dyspnea; Translations: [Dyspnea, unspecified]Onset: 07-27-2016 79-43-5050TjygnhtqGxmiq nutritional; endocrine; and metabolic disorders (3 sources)Hyperuricemia without signs of inflammatory arthritis and tophaceous disease; Translations: [Other abnormal blood chemistry]Onset: 09-22-2024 09-95-2055AxujhzkyAugsqoct codes; unclassified (4 sources)Edema, unspecified; Translations: [EDEMA UNSPECIFIED]Onset: 93-32-1305QrmuobwrNfttdlkw codes; unclassified (1 source)Localized edema; Translations: [LOCALIZED EDEMA]Onset: 01-19-2022 EpisodicResidual codes; unclassified (1 source)Acquired absence of both cervix and uterus; Translations: [ACQUIRED ABSENCE BOTH CERVIX AND UTERUS]Onset: 77-34-3730LsokcugpUstnaamy codes; unclassified (20 sources)History of operative procedure on lumbar spinal structure; Translations: [Other specified postprocedural states]Onset: 931699-00-0491 EpisodicResidual codes; unclassified (18 sources)Edema; Translations: [Edema, unspecified]Onset: EpisodicScreening and history of mental health and substance abuse codes (20 sources)Personal history of nicotine dependence; Translations: [H/O: Disorder]Onset: 64-87-0743VxiollplFyiamxkzzwv; intervertebral disc disorders; other back problems (20 sources)Spinal stenosis, lumbar region with neurogenic claudication; Translations: [Radiculopathy, lumbar region]Onset: 02-04-4846Lqmwstck Unclassified (1 source)CONTACT W/AND (SUSP) EXPOS COVID-19; Translations: [CONTACT W/AND (SUSP) EXPOS COVID-19]Onset: 08-65-8208Qhgbsxncfhui (1 source)Vertebrogenic low back pain; Translations: [Vertebrogenic low back pain]Onset: 11-23-2023 Results Test NameValueInterpretationReference RangeFacilityLon 01-22-2025L Specimen: [id number] Received: 01/22/25 Status: YUMI Russell Num: [id number] Spec Type: Surgical Subm Dr: Kal Molina MD Tissues: A Colon Biopsy (ASCENDING POLYP) B Colon Biopsy (TRANSVERSE POLYP) C Colon Biopsy (DESCENDING POLYP) Procedures: Komal/Micro L4/3 Age/ Patient Sex Location Account Attending Physician Vero Sadler 74/F [id number] Kal Molina MD SPEC NUM: [id number] RECD: 01/22/25 STATUS: YUMI RUSSELL NUM: [id number] BUDDY: 01/22/[address]: Kal Molina MD ENTERED: 01/22/[address] [facility] DR: SPEC TYPE: Surgical DEPT: S ENTERED BY: [id number] RECV BY: [id number] ORDERED: HE/12, Gross/Micro L4/3 ORDERED: HE/12, Gross/Micro [...] mucosa with no significant pathologic change. Specimen: [id number] Received: 01/22/25 Status: YUMI Eduardo Num: [id number] Spec Type: Surgical Subm Dr: Kal Molina MD Tissues: A Colon Biopsy (ASCENDING POLYP) B Colon Biopsy (TRANSVERSE POLYP) C Colon Biopsy (DESCENDING POLYP) Procedures: HE/12, Gross/Micro L4/3 Patient: Vero Sadler [id number] (Continued) Specimen: [id number] Received: 01/22/25 (Continued) Signed (signature on file) Vladimir Rivera MD 01/24/25906 Specimen: [id number] Received: 01/22/25 Status: YUMI Russell Num: [id number] Spec Type: Surgical Subm Dr: Kal Molina MD Tissues: A Colon Biopsy (ASCENDING POLYP) B Colon Biopsy (TRANSVERSE POLYP) C Colon Biopsy (DESCENDING POLYP) Procedures: GRETA/Jagruti, Gross/Jesús L4/3 Patient: Vero Sadler [id number] (Continued) Specimen: [id number] Received: 01/22/25 (Continued) Clinical Information History of colon polyps Gross Description Part A is received in formalin labeled with the patient's date of , and [place], ascending polyp is a whitehead-moore, focally erythematous, friable, 0.3 cm in greatest dimension polypoid fragment. The specimen is entirely submitted in a single cassette. (1, ns, R93- 3106 A) Part B is received in formalin labeled with the patient's date of , and [place], transverse polyp is a whitehead-moore, focally erythematous, friable, 0.2 cm in greatest dimension polypoid fragment. The specimen is entirely submitted in a single cassette. (1, ns, J58- 8862 B) Part C is received in formalin labeled with the patient's date of , and [place], descending polyp are 2 whitehead-moore, focally erythematous, friable, 0.2 and 0.3 cm in greatest dimension polypoid fragments. The specimen is entirely submitted in a single cassette. (1, ns, E88-0112 C) CPT Codes 13351 x 3 Specimen: [id number] Received: 01/22/25 Status: YUMI Russell Num: [id number] Spec Type: Surgical Subm Dr: Kal Molina MD Tissues: A Colon Biopsy (ASCENDING POLYP) B Colon Biopsy (TRANSVERSE POLYP) C Colon Biopsy (DESCENDING POLYP) Procedures: , Gross/Micro L4/3 Patient: Vero Sadler [id number] (Continued) (more content not included)...[facility] GroupBaptist [facility] Onlyon 31-57-7221Arsiby [id number] Vero Sadler 1950 F Date Provider Department [place] 11/10/2024 JOSE[facility] AR[facility] Family History Problem Relation Age of Onset Other Mother Coronary artery disease Mother Other Mother Other Mother Other Father Hypertension Father Hyperlipidemia Father Other Daughter Family Status - Relation Status Age at Mother Father DaughterNormalUniversity Marion HospitalOffice [facility] 10-24-2024 Follow-up [id number] Vero Sadler 1950 F Date Provider Department [place] 10/24/2024 [facility] AR[facility]OLD [facility] Family History Problem Relation Age of Onset Other Mother Coronary artery disease Mother Other Mother Other Mother Other Father Hypertension Father Hyperlipidemia Father Other Daughter Family Status - Relation Status Age at Mother Father Daughter Level of Service:19706 [place] OFFICE/OUTPATIENT ESTABLISHED LOW MDM 20 [facility] CenterAlbumin [Mass/volume] in Serum or Plasma by Bromocresol green (BCG) dye binding methoOrdered By: Lizette Schaffer on 09-22-2024 Albumin BCG dye [Mass/Vol]3.8 g/dL3.5-5.7FWhite Hospital Appearance of UrineOrdered By: Lizette Schaffer on 21-96-4906Clqqkhtecb (U)Cloudy Critically abnormalCleCommunity Memorial HospitalComment on above:Order Comment: Name Collection Type:: Clean-Voided MidstreamPerformed By: #### SPE, JOSE,URINE #### [facility] , #### ADDONUAPLUS, CUU, PROCRERAT #### [facility] [address] [place] [address] USABacteria [Presence] in Urine by AutomatedOrdered By: Lizette Schaffer on 40-05-7536Grwsgtrx Auto Ql (U)1+ [HPF]HighNone SeenAdena Regional Medical CenterBilirubin Test strip Ql (U)Ordered By: Lizette Schaffer on 09-22-2024 Bilirubin Ql (U)NegativeNegativeAdena Regional Medical CenterCalcium [Mass/volume] in Serum or PlasmaOrdered By: Lizette Schaffer on 17-83-0584Phxbqgs [Mass/Vol]8.9 mg/dLNormal8.6-10.3FWhite HospitalComment on above:Performed By: #### JOSE SERUM, SPE W INTERPRET, KAPPA #### [facility] , #### FE and TIBC, MG, TAYLOR, RENAL, PTH, [id number], CBCNO, URIC #### [facility] [address] [place] [address] USACarbon dioxide, total [Moles/volume] in Serum or Plasma Ordered By: Lizette Schaffer on 78-60-0017HZ2 [Moles/Vol]24.4 mmol/UVjhgef08.0-31.0 [facility] CenterComment on above:Performed By: #### JOSE SERUM, SPE W INTERPRET, KAPPA #### [facility] , #### FE and TIBC, MG, TAYLOR, RENAL, PTH, [id number], CBCNO, URIC #### [facility] [address] [place] [id number] USAChloride [Moles/volume] in Serum or PlasmaOrdered By: Lizette Schaffer on 93-62-8754Fvybyzed [Moles/Vol]109 mmol/OVmjz16-717RydlvndoyAdena Regional Medical CenterComment on above:Performed By: #### JOSE SERUM, SPE W INTERPRET, KAPPA #### [facility] , #### FE and TIBC, MG, TAYLOR, RENAL, PTH, [id number], CBCNO, URIC #### [place] [id number] USAColor of Urine by AutoOrdered By: Lizette Schaffer on 64-60-7117Anrsl (U)YellowNormalYWestern Reserve HospitalComment on above:Order Comment: Name Collection Type:: Clean-Voided MidstreamPerformed By: #### SPE, JOSE,URINE #### [facility] , #### ADDONUAPLUS, CUU, PROCRERAT #### [facility] [address] [place], [place] [id number] USACreatinine [Mass/volume] in Serum or PlasmaOrdered By: Lizette Schaffer on 62-19-8146Wsptiwzvoy [Mass/Vol]2.25 mg/dLHigh0.60-1.20[facility] Medical CenterComment on above:Performed By: #### JOSE SERUM, SPE W INTERPRET, KAPPA #### [facility] , #### FE and TIBC, MG, TAYLOR, RENAL, PTH, [id number], CBCNO, URIC #### [place] [id number] USACreatinine [Mass/volume] in UrineOrdered By: Lizette Schaffer on 56-27-9990Tpsoqyamux (U) [Mass/Vol]153.00 mg/dLAdena Regional Medical CenterComment on above:No reference range establishedDipstick and Microscopicon 13-17-3959Iuorwrdd,Urine1+ [HPF]NormalNone SeenThe [facility] Comment on above:Order Comment: Name Collection Type:: Clean-Voided Midstream Performed By: #### SPE, JOSE,URINE #### [facility] , #### ADDONUAPLUS, CUU, PROCRERAT #### [facility] [address] [place] [address] USABilirubin,UrineNegativeNormalNegativeTallahassee Memorial Healthcare Physician GroupComment on above:Order Comment: Name Collection Type:: Clean- Voided MidstreamPerformed By: #### SPE, JOSE,URINE #### [facility] , #### ADDONUAPLUS, CUU, PROCRERAT #### [facility] [address] [place] [address] USAGlucose Ql (U)NormalNormalNormalThe [facility] Physician GroupComment on above:Order Comment: Name Collection Type:: Clean-Voided MidstreamPerformed By: #### SPE, JOSE,URINE #### [facility] , #### ADDONUAPLUS, CUU, PROCRERAT #### [facility] [address] [place] [address] USAHyaline Casts,Wsrfo6-1Dblgjf4-5Ler [facility] Physician GroupComment on above:Order Comment: Name Collection Type:: Clean-Voided MidstreamPerformed By: #### SPE, JOSE,URINE #### [facility] , #### ADDONUAPLUS, CUU, PROCRERAT #### [facility] [address] [place] [address] USAMucus,UrineRareNormalThe [facility] Physician GroupComment on above:Order Comment: Name Collection Type:: Clean-Voided MidstreamResult Comment: PERFORMED BY: [place] [address] PATHOLOGIST CALCINER OPERATOR HELPER CASSIDY CASIANO M.D.Performed By: #### SPE, JOSE,URINE #### [facility] , #### ADDONUAPLUS, CUU, PROCRERAT #### [place] [address] USANitrite,UrineNegativeNormalNegativeThe [facility] Physician GroupComment on above:Order Comment: Name Collection Type:: Clean-Voided MidstreamPerformed By: #### SPE, JOSE,URINE #### [facility] , #### ADDONUAPLUS, CUU, PROCRERAT #### [place] [address] USAOccult Blood,UrineNegativeNormalNegativeThe [facility] Physician GroupComment on above:Order Comment: Name Collection Type:: Clean- Voided MidstreamPerformed By: #### SPE, JOSE,URINE #### [facility] , #### ADDONUAPLUS, CUU, PROCRERAT #### [place] [address] USAProtein,UrineNegativeNormalNegativeThe [facility] Physician GroupComment on above:Order Comment: Name Collection Type:: Clean-Voided MidstreamPerformed By: #### SPE, JOSE,URINE #### [facility] , #### ADDONUAPLUS, CUU, PROCRERAT #### [place] [address] USARBC,Nnehw6-7Slyjai4-0Kpe [facility] Physician GroupComment on above:Order Comment: Name Collection Type:: Clean-Voided MidstreamPerformed By: #### SPE, JOSE,URINE #### [facility] , #### ADDONUAPLUS, CUU, PROCRERAT #### [place] [address] USASpecificy [place],Urine1.544Jkivdb5.001-1.030The [facility] Physician GroupComment on above:Order Comment: Name Collection Type:: Clean- Voided MidstreamPerformed By: #### SPE, JOSE,URINE #### [facility] , #### ADDONUAPLUS, CUU, PROCRERAT #### [facility] [address] [place] [address] USASquamous Epithelial Cell,Jvduq2-7Izfwmx4-8Fbv [facility] Physician GroupComment on above:Order Comment: Name Collection Type:: Clean- Voided MidstreamPerformed By: #### SPE, JOSE,URINE #### [facility] , #### ADDONUAPLUS, CUU, PROCRERAT #### [place] [address] USAUrobilinogen,UrineNormalNormalNormalThe [facility] Physician GroupComment on above:Order Comment: Name Collection Type:: Clean- Voided MidstreamPerformed By: #### SPE, JOSE,URINE #### [facility] , #### ADDONUAPLUS, CUU, PROCRERAT #### [facility] [address] [place] [address] USAWBC,Emdoi2-9Udpxrg5-1Vzm [facility] Physician GroupComment on above:Order Comment: Name Collection Type:: Clean-Voided MidstreamPerformed By: #### SPE, JOSE,URINE #### [facility] , #### ADDONUAPLUS, CUU, PROCRERAT #### [facility] [address] [place] [address] USAEpithelial cells.squamous [#/area] in Urine sediment by Automated countOrdered By: Lizette Schaffer on 17-33-3079Xeaazmkgfl cells.squamous Auto (Urine sed) [#/Area]5-9 [HPF]High0-2FWhite Hospital Erythrocyte distribution width [Ratio] by Automated countOrdered By: Lizette Schaffer on 93-14-0932Zaplflqqthq distribution width (RBC) [Ratio]15.0 %Zwvtmx35.9-15.3 [facility] CenterComment on above:Performed By: #### JOSE SERUM, SPE W INTERPRET, KAPPA #### [facility] , #### FE and TIBC, MG, TAYLOR, RENAL, PTH, [id number], CBCNO, URIC #### [facility] [address] [place] [phone] USAErythrocytes [#/area] in Urine sediment by Automated count Ordered By: Lizette Schaffer on 53-39-2620OCM Auto (Urine sed) [#/Area]1-2 [HPF]0-4 [facility] Medical CenterErythrocytes [#/volume] in Blood by Automated countOrdered By: Lizette Schaffer on 68-93-3423EVI (Bld) [#/Vol]4.26 10*6/uLNormal 3.60-5.00[facility] Medical CenterComment on above:Performed By: #### JOSE SERUM, SPE W INTERPRET, KAPPA #### [facility] , #### FE and TIBC, MG, TAYLOR, RENAL, PTH, [id number], CBCNO, URIC #### [facility] [address] [place] [id number] USAFerritin [Mass/volume] in Serum or PlasmaOrdered By: Lizette Schaffer on 53-06-1265Tycyptgo [Mass/Vol]73.7 ng/kYAtmdkc66.0-306.8[facility] Medical CenterComment on above:Performed By: #### SPE, JOSE,URINE #### [facility] , #### ADDONUAPLUS, CUU, PROCRERAT #### [facility] [address] [place] [id number] USAFree K+L LT Chains, Qn, Son 25-40-6987Zrxz [place] Chains, S46.0 mg/LNormal3.3-19.4The [facility] Physician GroupComment on above: Performed By: #### SPE, JOSE,URINE #### [facility] , #### ADDONUAPLUS, CUU, PROCRERAT #### [facility] [address] [place] [address] USAFree Lambda Light Chains, S25.9 mg/LNormal5.7-26.3The [facility] Physician GroupComment on above:Performed By: #### SPE, JOSE,URINE #### [facility] , #### ADDONUAPLUS, CUU, PROCRERAT #### [facility] [address] [place] [address] USAKappa/Lambda Ratio, S1.91Sgagzf4.26-1.65The [facility] Physician GroupComment on above:Result Comment: Performed at: - [facility] [id number] Radiation Control Specialist: Jozef Medina PhD, Phone: [phone] PERFORMED BY: [place] [address] PATHOLOGIST CALCINER OPERATOR HELPER CASSIDY CASIANO M.D.Performed By: #### SPE, JOSE,URINE #### [facility] , #### ADDONUAPLUS, CUU, PROCRERAT #### [facility] [address] [place] [address] USAGlucose [Mass/volume] in Serum or PlasmaOrdered By: Lizette Schaffer on 46-02-0236Ywbenro [Mass/Vol]95 mg/qDMqskeq78-568ZveqnetqcAdena Regional Medical CenterComment on above:ADA recommended reference rangeRandom Glucose Reference [...] FE and TIBC, MG, TAYLOR, RENAL, PTH, [id number], CBCNO, URIC #### [facility] [address] [place] [address] USAGlucose [Mass/volume] in Urine by Test stripOrdered By: Lizette Schaffer on 75-26-7905Rgtluea Test strip (U) [Mass/Vol]Normal mg/dLNormal [facility] Medical CenterHematocrit [Volume Fraction] of Blood by Automated countOrdered By: Lizette Schaffer on 89-28-0499Asilcdizew (Bld) [Volume fraction]37.9 %Dxfijs48.0-46.4FWhite HospitalComment on above: Performed By: #### JOSE SERUM, SPE W INTERPRET, KAPPA #### [facility] , #### FE and TIBC, MG, TAYLOR, RENAL, PTH, [id number], CBCNO, URIC #### [facility] [address] [place] [id number] USAHemoglobin Test strip Ql (U)Ordered By: Lizette Schaffer on 85-47-9068Phzzaqfifp Ql (U)NegativeNegativeAdena Regional Medical Center Hemoglobin [Mass/volume] in BloodOrdered By: Lizette Connerdir on 46-05-0268Fegwnkfuvc (Bld) [Mass/Vol]12.3 g/tZRavuth85.8-15.4FWhite Hospital Comment on above:Performed By: #### JOSE SERUM, SPE W INTERPRET, KAPPA #### [facility] , #### FE and TIBC, MG, TAYLOR, RENAL, PTH, [id number], CBCNO, URIC #### [facility] [address] [place] [id number] USAHemogram CBC Without Diffon 60-54-8679Gfzs Corpuscular HGB Conc32.5 g/cFUuehnz33.0-35.0The [facility] Physician GroupComment on above: Performed By: #### JOSE SERUM, SPE W INTERPRET, KAPPA #### [facility] , #### FE and TIBC, MG, TAYLOR, RENAL, PTH, [id number], CBCNO, URIC #### [facility] [address] [place] [address] USAWhite Blood Count6.6 [CFU]/mLNormal3.8-11.6The [facility] Physician GroupComment on above:Performed By: #### JOSE SERUM, SPE W INTERPRET, KAPPA #### [facility] , #### FE and TIBC, MG, TAYLOR, RENAL, PTH, [id number], CBCNO, URIC #### [facility] [address] [place] [address] USAHyaline casts [#/area] in Urine sediment by Automated countOrdered By: Lizette Schaffer on 34-33-3118Eqgddon casts Auto (Urine sed) [#/Area]0-8 [LPF]0-8[facility] Medical CenterImmunofixation for Urine Ordered By: Lizette Schaffer on 11-54-4840Ldugjkqybfdnrm Immunofixation (U) [Interp] Comment:.[facility] Medical CenterComment on above:Presence of monoclonal protein is unclear at this time. Suggestrepeat in 3 to 6 months if clinically indicated.Performed at: [facility] [address] [place], [place] [id number] Director: Jozef Medina PhD, Phone: [phone] Immunofixation, (JOSE), Urineon 42-60-8010Upemonhsvuulti, (JOSE), UrineComment: Normal.The [facility] Physician GroupComment on above:Result Comment: Presence of monoclonal protein is unclear at this time. Suggest repeat in 3 to 6 months if clinically indicated. Performed at: [facility] [address] [place], [place] [id number] Radiation Control Specialist: Jozef Medina PhD, Phone: [phone] PERFORMED BY: [address] [place] [address] PATHOLOGIST CALCINER OPERATOR HELPER CASSIDY CASIANO M.D.Performed By: #### SPE, JSOE,URINE #### [facility] , #### ADDONUAPLUS, CUU, PROCRERAT #### [facility] [address] [place] [address] USAImmunofixation,Serumon 57-05-5106Jrgdoauauvqkmq, Serum CommentNormal.The [facility] Physician GroupComment on above:Result Comment: No monoclonality detected.Performed By: #### SPE, JOSE,URINE #### [facility] , #### ADDONUAPLUS, CUU, PROCRERAT #### [facility] [address] [place] [address] USAImmunoglobulin A, Namae846 mg/jYUhxtmd33-916Fgv [facility] Physician Laird HospitalComment on above:Performed By: #### SPE, JOSE,URINE #### [facility] , #### ADDONUAPLUS, CUU, PROCRERAT #### [facility] [address] [place] [address] USAImmunoglobulin G1018 mg/bPKzyjkb432-8598Guf [facility] Physician GroupComment on above:Performed By: #### SPE, JOSE,URINE #### [facility] , #### ADDONUAPLUS, CUU, PROCRERAT #### [facility] [address] [place] [address] USAImmunoglobulin M, Serum91 mg/bSKybrnj30-926Def [facility] Physician Laird HospitalComment on above:Result Comment: Performed at: [facility] [id number] Radiation Control Specialist: Jozef Medina PhD, Phone: [phone] By: #### SPE, JOSE,URINE #### [facility] , #### ADDONUAPLUS, CUU, PROCRERAT #### [facility] [address] [place] [address] USAIron [Mass/volume] in Serum or PlasmaOrdered By: Lizette Schaffer on 28-27-2077Gobf [Mass/Vol]54 ug/oDJgzdcw83-070XhcfcqjvjAdena Regional Medical CenterComment on above:Performed By: #### SPE, JOSE,URINE #### [facility] , #### ADDONUAPLUS, CUU, PROCRERAT #### [facility] [address] [place] [address] USAIron and TIBC Profileon 09-22-2024% Iron Polfhwxkpc49.0 % Gbqpuj40-01Oov [facility] Physician GroupComment on above:Performed By: #### SPE, JOSE,URINE #### [facility] , #### ADDONUAPLUS, CUU, PROCRERAT #### [facility] [address] [place] [address] USATotal Iron Binding Ikifxflw475 ug/aNOaa729-088Avp [facility] Physician GroupComment on above:Performed By: #### SPE, JOSE,URINE #### [facility] , #### ADDONUAPLUS, CUU, PROCRERAT #### [facility] [address] [place] [address] USAKetones [Presence] in Urine by Test stripOrdered By: Lizette Schaffer on 70-13-3558Uskdmln Ql (U)NegativeNormalNegWVUMedicine Barnesville HospitalComment on above:Order Comment: Name Collection Type:: Clean- Voided MidstreamPerformed By: #### SPE, JOSE,URINE #### [facility] , #### ADDONUAPLUS, CUU, PROCRERAT #### [place] [address] USALeukocyte esterase [Presence] in Urine by Test strip Ordered By: Lizette Schaffer on 08-52-9788Bvzgpzgal esterase Test strip Ql (U)1+ NormalNegWVUMedicine Barnesville HospitalComment on above:Order Comment: Name Collection Type:: Clean-Voided MidstreamPerformed By: #### SPE, JOSE,URINE #### [facility] , #### ADDONUAPLUS, CUU, PROCRERAT #### [address] [place] [address] USALeukocytes [#/area] in Urine sediment by Automated count Ordered By: Lizette Connerdir on 61-28-2372SAO Auto (Urine sed) [#/Area]5-9 [HPF]High 0-4FWhite HospitalLeukocytes [#/volume] corrected for nucleated erythrocytes in Blood by Automated counOrdered By: Lizette Sarbjit on 59-70-9771BVH corrected for nucl RBC Auto (Bld) [#/Vol]6.6 10*3/uL3.8-11.6 [facility] [Entitic mass] by Automated countOrdered By: Lizette Sarbjit on 04-52-0769YMB (RBC) [Entitic mass]28.9 blSqkqky22.7-34.3 [facility] CenterComment on above:Performed By: #### JOSE SERUM, SPE W INTERPRET, KAPPA #### [facility] , #### FE and TIBC, MG, TAYLOR, RENAL, PTH, [id number], CBCNO, URIC #### [facility] [address] [place], [place] [id number] [facility] Auto (RBC) [Mass/Vol]Ordered By: Lizette Connerdir on 78-71-4016PJLX (RBC) [Mass/Vol]32.5 g/dL32.0-35.0[facility] Medical CenterMCV [Entitic volume] by Automated countOrdered By: Lizette Sarbjit on 61-96-0194WCY (RBC) [Entitic vol]89.0 bFMomhck35-292MlmcsbdmuAdena Regional Medical CenterComment on above:Performed By: #### JOSE SERUM, SPE W INTERPRET, KAPPA #### [facility] , #### FE and TIBC, MG, TAYLOR, RENAL, PTH, [id number], CBCNO, URIC #### [facility] [address] [place], [place] [address] USAMagnesium [Mass/volume] in Serum or PlasmaOrdered By: Lizette Sarbjit on 88-04-1932Iirqtsyec [Mass/Vol]1.7 mg/dLLow1.9-2.7FWhite HospitalComment on above:Performed By: #### SPE, JOSE,URINE #### [facility] , #### ADDONUAPLUS, CUU, PROCRERAT #### [facility] [address] [place] [address] USAMucus [Presence] in Urine by AutomatedOrdered By: Lizette Schaffer on 05-63-6826Ievur Auto Ql (U)Rare [LPF][facility] Nitrite Test strip Ql (U)Ordered By: Lizette Schaffer on 05-85-2755Abruiir Ql (U) NegativeNegativeAdena Regional Medical CenterNo Panel InformationOrdered By: Lizette Schaffer on 49-88-5533Daglbky Electrophoresis M-SpikeNot observed g/dLNot ObservedAdena Regional Medical CenterProtein Electrophoresis NoteComment. [facility] CenterComment on above:Protein electrophoresis scan will follow via computer,mail, or investigation division lieutenant delivery.Performed at: [facility] [employer] [address] [id number] Director: Jozef Medina PhD, Phone: [phone] GFR (CKD-EPI)22.480 mL/MinAdena Regional Medical CenterPharmacy Creatinine Clearance (ChemN/AFWhite Hospital Protein Electrophoresis InterpretComment.[facility] Comment on above:Faint band in gamma region suspicious for monoclonalimmunoglobulin. This band may represent a benign spike asseen in older people or could be a paraprotein as seen inMultiple Myeloma, Waldenstrom's Ma croglobulinemia orLymphoma. Depending on clinical circumstances, furtherdiagnostic studies may include serum immunofixation orserum free light chain quantitation.Performed at: [employer] [address] [id number] Director: Jozef Medina PhD, Phone: [phone].intact [Mass/volume] in Serum or PlasmaOrdered By: Lizette Schaffer on 09-22-2024 Parathyrin.intact [Mass/Vol]68.7 pg/mD75-31UsujaigmyAdena Regional Medical Center Parathyroid Hormone Intacton 24-94-6140Ijuikwhvffb Hormone Nidnko43.7 pg/mL Nhlfyv22-60Imj [facility] Physician GroupComment on above:Result Comment: PERFORMED BY: [place] [id number] PATHOLOGIST CALCINER OPERATOR HELPER CASSIDY CASIANO M.D.Performed By: #### JOSE SERUM, SPE W INTERPRET, KAPPA #### [facility] , #### FE and TIBC, MG, TAYLOR, RENAL, PTH, [id number], CBCNO, URIC #### [facility] [address] [place] [address] USAPhosphate [Mass/volume] in Serum or PlasmaOrdered By: Lizette Sarbjit on 80-86-4448Csclxcays [Mass/Vol]3.6 mg/dLNormal2.5-4.5FWhite HospitalComment on above:Performed By: #### JOSE SERUM, SPE W INTERPRET, KAPPA #### [facility] , #### FE and TIBC, MG, TAYLOR, RENAL, PTH, [id number], CBCNO, URIC #### [facility] [address] [place] [address] USAPlatelet mean volume [Entitic volume] in Blood by Automated countOrdered By: Lizette Sarbjit on 92-00-6019Zgdwqttt mean volume (Bld) [Entitic vol]8.1 fLNormal6.3-10.7FWhite HospitalComment on above:Result Comment: PERFORMED BY: [address] [address] PATHOLOGIST CALCINER OPERATOR HELPER CASSIDY CASIANO M.D.Performed By: #### JOSE SERUM, SPE W INTERPRET, KAPPA #### [facility] , #### FE and TIBC, MG, TAYLOR, RENAL, PTH, [id number], CBCNO, URIC #### [facility] [address] [place] [address] USAPlatelets [#/volume] in Blood by Automated countOrdered By: Lizette Sarbjit on 94-92-2329Xuqogaxbi (Bld) [#/Vol]212 10*3/dPVmqdev133-498 [facility] Medical CenterComment on above:Performed By: #### JOSE SERUM, SPE W INTERPRET, KAPPA #### [facility] , #### FE and TIBC, MG, TAYLOR, RENAL, PTH, [id number], CBCNO, URIC #### [place] [address] USAPotassium [Moles/volume] in Serum or PlasmaOrdered By: Lizette Schaffer on 76-55-6674Ljashspfc [Moles/Vol]5.7 mmol/LHigh3.5-5.1FWhite HospitalComment on above:Performed By: #### JOSE SERUM, SPE W INTERPRET, KAPPA #### [facility] , #### FE and TIBC, MG, TAYLOR, RENAL, PTH, [id number], CBCNO, URIC #### [facility] [address] [place], [place] [id number] USAProt Electrophoresis w/Interpon 85-02-9786Vbyhzzt [Mass/Vol]3.2 g/dLNormal2.9-4.4The [facility] Physician GroupComment on above: Performed By: #### SPE, JOSE,URINE #### [facility] , #### ADDONUAPLUS, CUU, PROCRERAT #### [place] [id number] USAAlbumin/Globulin [Mass ratio]1.1 {ratio}Normal0.7-1.7The [facility] Physician GroupComment on above:Performed By: #### SPE, JOSE,URINE #### [facility] , #### ADDONUAPLUS, CUU, PROCRERAT #### [facility] [address] [place], [place] [id number] NTENtmgk-4-Mekxdcfh1.3 g/dLNormal0.0-0.4The [facility] Physician GroupComment on above:Performed By: #### SPE, JOSE,URINE #### [facility] , #### ADDONUAPLUS, CUU, PROCRERAT #### [place] [address] FNTUfdnk-9-Whpaumik9.8 g/dLNormal0.4-1.0The [facility] Physician GroupComment on above:Performed By: #### SPE, JOSE,URINE #### [facility] , #### ADDONUAPLUS, CUU, PROCRERAT #### [facility] [address] [place] [address] USABeta Globulin0.9 g/dLNormal0.7-1.3The [facility] Physician GroupComment on above:Performed By: #### SPE, JOSE,URINE #### [facility] , #### ADDONUAPLUS, CUU, PROCRERAT #### [facility] [address] [place] [address] USAGamma Globulin0.9 g/dLNormal0.4-1.8The [facility] Physician GroupComment on above:Performed By: #### SPE, JOSE,URINE #### [facility] , #### ADDONUAPLUS, CUU, PROCRERAT #### [place] [address] USAGlobulin (S) [Mass/Vol]2.9 g/dLNormal2.2-3.9The [facility] Physician GroupComment on above:Performed By: #### SPE, JOSE,URINE #### [facility] , #### ADDONUAPLUS, CUU, PROCRERAT #### [facility] [address] [place] [address] USAM-SpikeComment:NormalNot ObservedThe [facility] Physician GroupComment on above:Result Comment: SPE shows an asymmetrical gamma.Performed By: #### SPE, JOSE,URINE #### [facility] , #### ADDONUAPLUS, CUU, PROCRERAT #### [facility] [address] [place] [address] USAProtein [Mass/Vol]6.1 g/dLNormal6.0-8.5The [facility] Physician GroupComment on above:Performed By: #### SPE, JOSE,URINE #### [facility] , #### ADDONUAPLUS, CUU, PROCRERAT #### [place] [address] USASPE-InterpretationCommentNormal.The [facility] Physician GroupComment on above:Result Comment: Faint band in gamma region suspicious for monoclonal immunoglobulin. This band may represent a benign spike as seen in older people or could be a paraprotein as seen in Multiple Myeloma, Waldenstrom's Macroglobulinemia or Lymphoma. Depending on clinical circumstances, further diagnostic studies may include serum immunofixation or serum free light chain quantitation. Performed at: [facility] [id number] Radiation Control Specialist: Jozef Medina PhD, Phone: [phone] By: #### SPE, JOSE,URINE #### [facility] , #### ADDONUAPLUS, CUU, PROCRERAT #### [place] [address] USASPE-NoteCommentNormal.The [facility] Physician GroupComment on above:Result Comment: Protein electrophoresis scan will follow via computer, mail, or investigation division lieutenant delivery.Performed By: #### SPE, JOSE,URINE #### [facility] , #### ADDONUAPLUS, CUU, PROCRERAT #### [facility] [address] [place] [address] USAProtein Creat Ratio Ur Randomon 04-05-4331Hlaxoxpvsa, Urine (Random)153.00 mg/dLNormalThe [facility] Physician GroupComment on above: Result Comment: No reference range establishedPerformed By: #### SPE, JOSE,URINE #### [facility] , #### ADDONUAPLUS, CUU, PROCRERAT #### [place] [address] USAUrine Protein/Creatinine Xgsen884 mg/g{Cre}Normal0-200The [facility] Physician GroupComment on above:Result Comment: PERFORMED BY: [place] [address] PATHOLOGIST CALCINER OPERATOR HELPER CASSIDY CASIANO M.D.Performed By: #### SPE, JOSE,URINE #### [facility] , #### ADDONUAPLUS, CUU, PROCRERAT #### [place] [address] USAProtein Electrophoresis, Serumon 09-22-2024 Kmhem-5-Orggzldh0.3 g/dLNormal0.0-0.4The [facility] Physician GroupComment on above:Performed By: #### SPE, JOSE,URINE #### [facility] , #### ADDONUAPLUS, CUU, PROCRERAT #### [place] [address] KBVSrnjk-8-Lpdfllqf9.8 g/dLNormal0.4-1.0The [facility] Physician GroupComment on above:Performed By: #### SPE, JOSE,URINE #### [facility] , #### ADDONUAPLUS, CUU, PROCRERAT #### [place] [address] USABeta Globulin0.9 g/dLNormal0.7-1.3The [facility] Physician GroupComment on above:Performed By: #### SPE, JOSE,URINE #### [facility] , #### ADDONUAPLUS, CUU, PROCRERAT #### [place] [address] USAGamma Globulin0.9 g/dLNormal0.4-1.8The [facility] Physician GroupComment on above:Performed By: #### SPE, JOSE,URINE #### [facility] , #### ADDONUAPLUS, CUU, PROCRERAT #### [facility] [address] [place] [address] USAM-SpikeNot ObservedNormalNot ObservedThe [facility] Physician GroupComment on above:Performed By: #### SPE, JOSE,URINE #### [facility] , #### ADDONUAPLUS, CUU, PROCRERAT #### [place] [address] USASPE-NoteCommentNormal.The [facility] Physician GroupComment on above:Result Comment: Protein electrophoresis scan will follow via computer, mail, or investigation division lieutenant delivery. Performed at: [facility] [id number] Radiation Control Specialist: Jozef Medina PhD, Phone: [phone] PERFORMED BY: [place] [address] PATHOLOGIST CALCINER OPERATOR HELPER CASSIDY CASIANO M.D.Performed By: #### SPE, JOSE,URINE #### [facility] , #### ADDONUAPLUS, CUU, PROCRERAT #### [place] [address] USAProtein Test strip (U) [Mass/Vol]Ordered By: Lizette Schaffer on 98-10-7630Lcojupp (U) [Mass/Vol]NegativeNegativeAdena Regional Medical CenterProtein [Mass/volume] in UrineOrdered By: Lizette Schaffer on 86-18-1734Pfxpicw (U) [Mass/Vol]16 mg/dLHigh0-9A[facility] Medical CenterComment on above: Performed By: #### SPE, JOSE,URINE #### [facility] , #### ADDONUAPLUS, CUU, PROCRERAT #### [place] [address] USARenal Function Panelon 42-89-0839Purpdzf [Mass/Vol]3.8 g/dLNormal3.5-5.7The [facility] Physician GroupComment on above:Performed By: #### JOSE SERUM, SPE W INTERPRET, KAPPA #### [facility] , #### FE and TIBC, MG, TAYLOR, RENAL, PTH, [id number], CBCNO, URIC #### [facility] [address] [place] [address] USAGFR/1.73 sq M.predicted MDRD (S/P/Bld) [Vol rate/Area] 22.480 mL/min/{1.73_m2}NormalThe [facility] Physician GroupComment on above: Performed By: #### JOSE SERUM, SPE W INTERPRET, KAPPA #### [facility] , #### FE and TIBC, MG, TAYLOR, RENAL, PTH, [id number], CBCNO, URIC #### [facility] [address] [place] [address] USASerum free kappa light chain measurementOrdered By: Lizette Schaffer on 88-68-0753Sbjelxnjxeqkfz light chains.kappa.free (S) [Mass/Vol]46.0 mg/LHigh3.3-19.4FClinton Memorial Hospitalerum globulin measurement (mass/volume)Ordered By: Lizette Schaffer on 03-08-8704Ztetoymh (S) [Mass/Vol]2.8 g/dLNormal2.2-3.9[facility] Medical CenterComment on above:Performed By: #### SPE, JOSE,URINE #### [facility] , #### ADDONUAPLUS, CUU, PROCRERAT #### [facility] [address] [place] [address] USASerum immunoglobulin free kappa light chains/immunoglobulin free lambda light chainsOrdered By: Lizette Schaffer on 26-66-1376Mosuvdxkrdgopz light chains.kappa.free/Immunoglobulin light chains.lambda.free (S) [Mass ratio]1.45Ooje6.26-1.65A[facility] Regional Medical CenterComment on above:Performed at: - [facility] [id number] Director: Jozef Medina PhD, Phone: [phone] or plasma IgA measurement (mass/volume)Ordered By: Lizette Sarbjit on 20-80-0614LaJ [Mass/Vol]184 mg/dO62-833WfmcmrdqyMercy Health Allen Hospitalerum or plasma IgG measurement (mass/volume)Ordered By: Lizette Sarbjit on 71-18-7719TkD [Mass/Vol]1018 mg/pH985-1011CntytmbeyMercy Health Allen Hospitalerum or plasma IgM measurement (mass/volume)Ordered By: Lizette Sarbjit on 67-06-0029NpK [Mass/Vol]91 mg/tX12-042 [facility] Medical CenterComment on above:Performed at: [facility] LabGymbox[address] [id number] Director: Jozef Medina PhD, Phone: [phone] or plasma albumin measurement (mass/volume)Ordered By: Lizette Sarbjit on 46-88-5358Hexulta [Mass/Vol]3.2 g/dLNormal2.9-4.4FWhite HospitalComment on above:Performed By: #### SPE, JOSE,URINE #### [facility] , #### ADDONUAPLUS, CUU, PROCRERAT #### [facility] [address] [place] [address] USASerum or plasma albumin/globulin mass ratioOrdered By: Lizette Sarbjit on 83-14-1587Rzvedtg/Globulin [Mass ratio]1.1 {ratio}Normal0.7-1.7 [facility] Medical CenterComment on above:Performed By: #### SPE, JOSE,URINE #### [facility] , #### ADDONUAPLUS, CUU, PROCRERAT #### [facility] [address] [place] [address] USASerum or plasma alpha 1 globulin measurement by electrophoresis (mass/volume)Ordered By: Lizette Sarbjit on 65-79-2815Fcvtm 1 globulin Elph [Mass/Vol]0.3 g/dL0.0-0.4FClinton Memorial Hospitalerum or plasma alpha 2 globulin measurement by electrophoresis (mass/volume)Ordered By: Lizette Schaffer on 41-27-0769Mxwqi 2 globulin Elph [Mass/Vol]0.8 g/dL0.4-1.0 [facility] Hospitalerum or plasma anion gap determinationOrdered By: Lizette Schaffer on 34-68-7659Wstlm gap [Moles/Vol]10.3 mmol/LNormal6.0-15.0 [facility] Medical CenterComment on above:Performed By: #### JOSE SERUM, SPE W INTERPRET, KAPPA #### [facility] , #### FE and TIBC, MG, TAYLOR, RENAL, PTH, PAOD19BH, CBCNO, URIC #### [place] [address] USASerum or plasma beta globulin measurement by electrophoresis (mass/volume)Ordered By: Lizette Schaffer on 31-95-5929Hxiy globulin Elph [Mass/Vol]0.9 g/dL0.7-1.3FClinton Memorial Hospitalerum or plasma gamma globulin measurement by electrophoresis (mass/volume)Ordered By: Lizette Schaffer on 57-08-4563Lbuex globulin Elph [Mass/Vol]0.9 g/dL0.4-1.8[facility] Allen Hospitalerum or plasma immunoglobulin free lambda light chains measurement (mass/volume)Ordered By: Lizette Schaffer on 05-84-4926Ykettesqxiyjon light chains.lambda.free [Mass/Vol]25.9 mg/L5.7-26.3FClinton Memorial Hospitalerum or plasma iron binding capacity measurement (mass/volume)Ordered By: Lizette Schaffer on 88-69-1667Iaeq binding capacity [Mass/Vol]245 ug/sZQyg001-923 [facility] Hospitalerum or plasma iron saturation measurement (mass fraction)Ordered By: Lizette Schaffer on 60-74-6046Gldc saturation [Mass fraction]22.0 %20-50Mer[facility] Allen Hospitalerum total protein measurementOrdered By: Lizette Schaffer on 87-31-9852Kdnmwfw [Mass/Vol]6.0 g/dLNormal 6.0-8.5FWhite HospitalComment on above:Performed By: #### SPE, JOSE,URINE #### [facility] , #### ADDONUAPLUS, CUU, PROCRERAT #### [facility] [address] [place] [address] USASodium [Moles/volume] in Serum or PlasmaOrdered By: Lizette Sarbjit on 20-75-4528Wcmjjj [Moles/Vol]138 mmol/TEngpyo143-030AluiovdssAdena Regional Medical CenterComment on above:Performed By: #### JOSE SERUM, SPE W INTERPRET, KAPPA #### [facility] , #### FE and TIBC, MG, TAYLOR, RENAL, PTH, JSHW06UI, CBCNO, URIC #### [facility] [address] [place] [address] USASpecific gravity Test strip (U) [Rel density]Ordered By: Lizette Sarbjit on 58-34-5610Exoqkdfb gravity (U) [Rel density]1.0181.001-1.030 [facility] Medical CenterTransferrin [Mass/volume] in Serum or Plasma Ordered By: Lizette Sarbjit on 48-75-8033Mwyhcowsvjm [Mass/Vol]175 mg/rAZaj285-089 [facility] Medical CenterComment on above:Performed By: #### SPE, JOSE,URINE #### [facility] , #### ADDONUAPLUS, CUU, PROCRERAT #### [facility] [address] [place] [address] USAUrate [Mass/volume] in Serum or PlasmaOrdered By: Lizette Sarbjit on 25-65-7316Gebjy [Mass/Vol]7.9 mg/dLHigh2.3-6.6FWhite HospitalComment on above:Performed By: #### SPE, JOSE,URINE #### [facility] , #### ADDONUAPLUS, CUU, PROCRERAT #### [facility] [address] [place] [address] USAUrea nitrogen [Mass/volume] in Serum or PlasmaOrdered By: Lizette Schaffer on 72-80-6241Fxqe nitrogen [Mass/Vol]40 mg/dLHigh7-25[facility] Medical CenterComment on above:Performed By: #### JOSE SERUM, SPE W INTERPRET, KAPPA #### [facility] , #### FE and TIBC, MG, TAYLOR, RENAL, PTH, DLGF12HO, CBCNO, URIC #### [facility] [address] StreetUrine Cultureon 63-73-5572Jbainvth identified Cx Nom (U) <9,000 colonies/ml mixed bacterial skin contaminants 2 Days PERFORMED BY: [place] [address] PATHOLOGIST CALCINER OPERATOR HELPER CASSIDY CASIANO M.D.NormalThe [facility] Physician GroupComment on above: Performed By: #### SPE, JOSE,URINE #### [facility] , #### ADDONUAPLUS, CUU, PROCRERAT #### [facility] [address] StreetUrine cultureOrdered By: Lizette Schaffer on 92-63-1935Qxlhntyr identified Cx Nom (U)2 DaysAdena Regional Medical CenterUrine protein/creatinine ratioOrdered By: Lizette Schaffer on 21-66-2332Fqtcslg/Creatinine (U) [Ratio]105 mg/g{Cre}0-200[facility] Regional Medical CenterUrobilinogen Test strip (U) [Mass/Vol]Ordered By: Lizette Schaffer on 07-99-9083Hqiihyycvghu (U) [Mass/Vol]Normal mg/dLNormalAdena Regional Medical CenterVitamin D 25 Hydroxy Totalon 68-50-5643Dfpdwuw D 25 Hydroxy Total29.7 ng/dRFmk15-906Stp [facility] Physician GroupComment on above:Result Comment: VITAMIN D STATUS 25(OH)VITAMIN D RANGE (ng/mL) Deficient <20 Insufficient 20 to <30 Sufficient 30 to 100 Reference: Jo MF,Jessica NC, Elizabeth LAMBERT, et al. Evaluation,treatment, and prevention of vitamin D deficiency; an Endocrine Society clinical practice guideline. JCEM. 2010; 96(7):1911-30. PERFORMED BY: [place] [address] PATHOLOGIST CALCINER OPERATOR HELPER CASSIDY CASIANO M.D.Performed By: #### SPE, JOSE,URINE #### [facility] , #### ADDONUAPLUS, CUU, PROCRERAT #### [facility] [address] [place] [id number] USAVitamin D+Metabolites [Mass/volume] in Serum or Plasma Ordered By: Lizette Schaffer on 64-97-0487Swekyts D+Metabolites [Mass/Vol]29.7 ng/mL Olc38-043OuazatymdAdena Regional Medical CenterComment on above:VITAMIN D STATUS 25(OH)VITAMIN D RANGE (ng/mL) Deficient <20 Insufficient 20 to <90Lmjrasagtl41 to 100Reference: Jo MF,Jessica PENA, Elizabeth LAMBERT, et al. Evaluation,treatment, and prevention of vitamin D deficiency; an Endocrine Society clinical practice guideline. JCEM. 2010; 96(7):1911-30.pH of Urine by Test stripOrdered By: Liztete Schaffer on 35-57-4005xT (U)5.0 [pH]Normal5.0-9.0 [facility] Medical CenterComment on above:Order Comment: Name Collection Type:: Clean-Voided MidstreamPerformed By: #### SPE, JOSE,URINE #### [facility] , #### ADDONUAPLUS, CUU, PROCRERAT #### [facility] [address] [place] [address] USAAmbulatory Visit Summaryon 76-30-9250Rgewcdfdbd Visit SummaryAmbulatory Visit Summary VERO SADLER :1950 [...] ROSETTA MENDEZ MD Where: [facility] [address], [address] [place] [address]- You Need to Schedule the Following Appointments [...] condition in w (more content not included)... NormalErlanger Western Carolina Hospitaler Kennedy Krieger InstituteUrology Office/Clinic Noteon 12-65-0414Lajjoni Office/Clinic NoteUrology Office/Clinic Note Chief Complaint f/u [...] with voice recognition artificial intelligence software, specifically Fast [employer], [employer] and or Love[employer]. Substitutions may have occurred due to the [...] or stones. 6. Aspirin long-term use (Z79.82: roasterman (current) use of aspirin) ASA. No BTs. Has pacemaker. Hx of OK but was asx, not sure when it [...] No qualifying data Pr (more content not included)...[facility] Memorial HospitalComment on above:Result Comment: Electronically Signed By: ROSETTA MENDEZ MD\.br\Date and Time Signed: 08/21/24 11:14 EDT\.br\Electronically Co- Signed By: Federica Luna\.br\Date and Time Co-Signed: 08/21/24 11:[address] Posterior fossa WO contraston 20-54[place] [address] CT Scan Report Signed Patient: VERO SADLER MR#: [id number] : 1950 Acct:[id number] Age/Sex: 74 / F ADM Date: 08/15/24 Loc: CT Attending Dr: John Mathews M.D. Ordering Physician: John Mathews M.D. Date of Service: 08/15/24 Procedure(s): CT int auditory canals w/o con Accession Number(s): [id number] cc: Debbie Bhatia M.D. [address] [address] Patient Name: VERO SADLER MRN: [id number] date: 1950 Sex: F Assigned Patient Location: CT Current Patient Location: CT Accession/Order Number: [id number] Exam Date: 08/15/2024 14:47 Report Date: 08/15/2024 [...] Gutierrez M.D. 08/15/2024 2:51 PM Dictation Location: [place] [address] Electronically authenticated by: [id number] Y Date: 08/15/2024 14:51 Dictated By: Victor Manuel Gutierrez M.D. Signed By: 08/15/24 1454 DD/ 145 TD/TT: Computer Numerical Control Operator:LORIHRadiology, Radiologist, - 08/15/2024 [place] [address] CT Scan Report Signed Patient: VERO SADLER MR#: [id number] : 1950 Acct:[id number] Age/Sex: 74 / F ADM Date: 08/15/24 Loc: CT Attending Dr: John Mathews M.D. Ordering Physician: John Mathews M.D. Date of Service: 08/15/24 Procedure(s): CT int auditory canals w/o con Accession Number(s): [id number] cc: Debbie Bhatia M.D. The [place] [address] Patient Name: VERO SADLER MRN: [id number] date: 1950 Sex: F Assigned Patient Location: CT Current Patient Location: CT Accession/Order Number: [id number] Exam Date: 08/15/2024 14:47 Report Date: 08/15/2024 [...] Gutierrez M.D. 08/15/2024 2:51 PM Dictation Location: [place] [address] Electronically authenticated by: [id number] Y Date: 08/15/2024 14:51 Dictated By: Victor Manuel Gutierrez M.D. Signed By: 08/15/24 1454 DD/ 1451 TD/TT: Computer Numerical Control Operator: NOMS HealthcareRadiology Study observation (narrative)NOMS HealthcareCT Posterior fossa WO contrastOrdered By: Radiologist Radiology on 25-55-3576[facility] Work Phone: Orders Onlyon 04-93-0292Norkxb [id number] Vero Sadler 1950 F Date Provider Department Center 08/11/2024 JOSEY ARNOLD [facility] Family History Problem Relation Age of Onset Other Mother Coronary artery disease Mother Other Mother Other Mother Other Father Hypertension Father Hyperlipidemia Father Other Daughter Family Status - Relation Status Age at Mother Father DaughterNormalUniversity of Permian Regional Medical CenterOrders [id number] Vero Sadler 1950 F Date Provider Department Center 08/11/2024 OLLIE HALLMAN [facility] Family History Problem Relation Age of Onset Other Mother Coronary artery disease Mother Other Mother Other Mother Other Father Hypertension Father Hyperlipidemia Father Other Daughter Family Status - Relation Status Age at Mother Father DaughterNormalUniversSelect Medical Specialty Hospital - CantonNo Panel InformationOrdered By: Kal Molina on 71-06-5549Uhxmhlhollkrc Pathology TestSee commentAdena Regional Medical CenterComment on above:See report. Scanned copy available in EMR.Pathology Request for Lab Corpon 58-58-0331Fdfimjqce Request for Lab Louisa NormalThe [facility] Physician GroupComment on above:Order Comment: GI SPECIMEN Result Comment: See report. Scanned copy available in EMR. PERFORMED BY: [place] [address] PATHOLOGIST CALCINER OPERATOR HELPER GENE BARRAGAN M.D.Performed By: #### PATH TO [facility] #### [place] [address] USAMain OR Intraoperative Recordon 32-21-7370Vntq OR Intraoperative RecordMain OR Intraoperative Record IntraOp Document Type FT Summary Primary Physician: ROSETTA MENDEZ MD Finalized Date/Time: 07/14/24 10:37:22 Pt. Name: VERO SADLER/Sex: 1950 Female Med Rec #: [id number] Physician: ROSETTA MENDEZ MD Financial #: [id number] Pt. Type: A Room/Bed: AS1/ Admit/Disch: 07/13/24 [...] Anesthesiologist Surgeon - Primary Scrub - Primary Flatbed Stitcher Time In 07/13/24 08:50:00 07/13/24 08:50:00 07/13/24 08:50:00 Time Out 07/13/24 09:14:00 07/13/24 09:14:00 07/13/24 09:14:00 Procedure BULKAMID PROCEDURE(.) BULKAMID PROCEDURE(.) BULKAMID PROCEDURE(.) Comments dr. walden lead section supervisor Last Modified By: Andrew Holly Ii, Alfons Ii F Letrondo, Alfons Ii F 07/13/24 09:22:03 07/13/24 09:22:03 07/13/24 09:22:03 Entry 4 Case Attendee Andrew Holly Ii Role Performed Camera Repairman - Primary Time In 07/13/24 08:50:00 Time [...] and tissue Entry 1 Skin Integrity Intact, Cunningham, Warm, & Skin Abnormality No Dry Outcomes [...] in Stirrup Posit (more content not included)...Normal [facility] HospitalDischarge Instructionson 83-27-0140Keuqxpply InstructionsDischarge Instructions VERO SADLER :1950 Visit Date:07/13/2024 [...] hours Duration: 5 Days Pickup at [facility]/pharmacy #[id number] New phenazopyridine (Pyridium 100 mg Tab) 1 Tablets By Mouth 3 times a day Duration: 3 Days Pickup at [facility]/pharmacy #[id number] Unchanged albuterol (Albuterol (Eqv-ProAir HFA)) 2 [...] 2 times a day Pharmacy Information [facility]/pharmacy #[id number]: [address], [place] [id number] [phone] Allergies Adhesive Bandage (Hives) Education Materials Common [...] yet, please contact Health Information Management at [phone] to get signed up today. Patient Name: VERO SADLER I have received this information and my questions have been answered. Patient/Voltage Tester Name: Patient/Voltage Tester Signature: Relationship to Patient: Witness Name/Signature: Date: (more content not included)...[facility] HospitalComment on above:Result Comment: Electronically Signed By: Virgie BRODY, Patricia Szymanski\Date and Time Signed: 07/13/24 10:41 EDTMain OR PACU I Recordon [id number] OR PACU I RecordMain OR PACU I Record PACU Phase I Document Type FT Summary Primary Physician: ROSETTA MENDEZ MD Finalized Date/Time: 07/13/24 09:53:55 Pt. Name: VERO SADLER /Sex: 1950 Female Med Rec #: [id number] Physician: ROSETTA MENDEZ MD Financial #: [id number] Pt. Type: A Room/Bed: AS18 Admit/Disch: 07/13/24 [...] Signatures Signed By: Orin Richmond RN 07/13/24 09:53NormalErlanger Western Carolina Hospitaler [facility] InstituteMain OR PACU II Recordon [id number] OR PACU II RecordMain OR PACU II Record PACU Phase II Document Type FT Summary Primary Physician: ROSETTA MENDEZ MD Finalized Date/Time: 07/13/24 15:25:20 Pt. Name: SADLER VERO Tri/Sex: 1950 Female Med Rec #: [id number] Physician: ROSETTA MENDEZ MD Financial #: [id number] Pt. Type: A Room/Bed: [facility] Admit/Disch: 07/13/24 07:02:16 - 07/13/24 11:00:00 Institution: [...] Signatures Signed By: Patricia Garvin RN 07/13/24 15:25NoOhioHealth Pickerington Methodist HospitalMain OR Preoperative Recordon [id number] OR Preoperative RecordMain OR Preoperative Record PreOp Document Type FT Summary Primary Physician: ROSETTA MENDEZ MD Finalized Date/Time: 07/13/24 09:04:45 Pt. Name: VERO SADLER /Sex: 1950 Female Med Rec #: [id number] Physician: ROSETTA MENDEZ MD Financial #: [id number] Pt. Type: A Room/Bed: [place] [address] Admit/Disch: 07/13/24 07:02:16 - Institution: Case Times [...] Signatures Signed By: Andrew Holly Ii 07/13/24 09:04[facility] HospitalOperative Reporton [id number] ReportOperative Report Patient: VERO SADLER Age: 74 years Sex: Female : 1950 Associated Diagnoses: None Author: ROSETTA MENDEZ MD Procedure SURGEON: Rosetta Mendez MD PREOPERATIVE DIAGNOSIS: Stress urinary incontinence with , intrinsic sphincter deficiency POSTOPERATIVE DIAGNOSIS: Same PROCEDURE: Cystoscopy, injection of urethral bulking agent CPT 05342 FINDINGS: Urethra injected at 4 units packed [...] in 6 WEEKS. Needs to void before utNoOhioHealth Pickerington Methodist Hospital Comment on above:Result Comment: Electronically Signed By: BRYAN BELTRÁN, ROSETTA\.br\Date and Time Signed: 07/13/24 10:17 EDTBMPon 56-77-7491Esnip gap [Moles/Vol]11 mmol/LNormal6-16Mercy HospitalComment on above: Performed By: #### [id number] #### [facility] [address], [place] [address]Suvmxrc [Mass/Vol]9.1 mg/dLNormal8.9-11.1FOhioHealth Nelsonville Health CenterComment on above:Performed By: #### [id number] #### [facility] [address], [place] [address]Ycnkvqcg [Moles/Vol]107 mmol/MZpaakk550-398XzdvccMercy HospitalComment on above:Performed By: #### [id number] #### [facility] [address], [place] [address]XV9 [Moles/Vol]26 mmol/YLcdsyq46-97YcjsldMercy Hospital Comment on above:Performed By: #### [id number] #### [facility] [address], [place] [address]Wfidcvcrtt [Mass/Vol]1.6 mg/dLHigh0.5-1.3FOhioHealth Nelsonville Health CenterComment on above:Performed By: #### [id number] #### [facility] [address], [place] [address]Pnprjcs [Mass/Vol]91 mg/zSSbrlqb17-598RafjjmMercy HospitalComment on above:Performed By: #### [id number] #### [facility] [address] [place] [address]Okqqxytct [Moles/Vol]4.7 mmol/LNormal3.5-5.3FOhioHealth Nelsonville Health CenterComment on above:Performed By: #### [id number] #### [facility] [address] [place] [address]Yjwzvh [Moles/Vol]139 mmol/JLmjybb549-825YlosffMercy HospitalComment on above:Performed By: #### [id number] #### [facility] [address] [place] [address] 10593Ntfy nitrogen [Mass/Vol]24 mg/dLHigh5-21Mercy HospitalComment on above:Performed By: #### [id number] #### [facility] [address] [place] [address] 76[address]Zzfw nitrogen/Creatinine [Mass ratio]15 No FzvesSgbyab10-42 Mercy HospitalComment on above:Performed By: #### [id number] #### [facility] [address] [place] [address]IES w/ Auto Diffon 58-69-9012Pizkcuzxz/100 WBC (Bld)1.2 %Normal 0.0-2.0Mercy HospitalComment on above:Performed By: #### [id number] #### [facility] [address] [place] [address] 916[address]Bcxwjpowl/Leukocytes Auto (Bld) [Pure # fraction]0.1 E9/LNormal 0.0-0.2FOhioHealth Nelsonville Health CenterComment on above:Performed By: #### [id number] #### [facility] [address] [place] [address] 295[address]Bahlrsszaup (Bld) [#/Vol]0.1 E9/LNormal0.0-0.5FOhioHealth Nelsonville Health CenterComment on above:Performed By: #### [id number] #### [facility] [address] [place] [address] 14863Xdjszzfmblf/100 WBC (Bld)1.6 %Normal0.0-8.0Mercy HospitalComment on above:Performed By: #### [id number] #### [facility] [address] [place] [address]101[address]Daxcbkpheys distribution width (RBC) [Ratio]14.6 %High10.9-14.2 Mercy HospitalComment on above:Performed By: #### [id number] #### [facility] [address] [place] [address] 557[address]Hpvamalmxz (Bld) [Volume fraction]34.0 %Pweicp34.0-46.0Mercy HospitalComment on above:Performed By: #### [id number] #### [facility] [address] [place] [address] 675[address]Uwunpmdyul (Bld) [Mass/Vol]11.2 g/dLLow12.0-16.0Mercy HospitalComment on above:Performed By: #### [id number] #### [facility] [address] [place] [address] 363[address]Qnmtavhumxw (Bld) [#/Vol]1.2 E9/LNormal1.0-4.0Mercy HospitalComment on above:Performed By: #### [id number] #### [facility] [address] [place] [address]Wgfbbpypoup/100 WBC (Bld)15.1 %Caoxjs50.0-50.0Mercy HospitalComment on above:Performed By: #### [id number] #### [facility] [address] [place] [address] 775[address]UTH (RBC) [Entitic mass]29.3 eyXtdtwq26.0-34.0Mercy HospitalComment on above:Performed By: #### [id number] #### [facility] [address] [place] [address] 48661ROJV (RBC) [Mass/Vol]32.9 g/xUGefmqg14.4-36.0Mercy HospitalComment on above:Performed By: #### [id number] #### [facility] [address] [place] [address] 57877NIV (RBC) [Entitic vol]89.0 yZHqwjzq62.0-100.0Mercy HospitalComment on above:Performed By: #### [id number] #### [facility] [address] [place] [address]Itshpdcak (Bld) [#/Vol]0.9 E9/LNormal0.2-1.0Mercy HospitalComment on above:Performed By: #### [id number] #### [facility] [address] [place] [address]Vgbvcbqwcmn (Bld) [#/Vol]5.3 E9/LNormal2.0-7.5FOhioHealth Nelsonville Health CenterComment on above:Performed By: #### [id number] #### [facility] [address] [place] [address]35[address]Rukkvqifihv/100 WBC (Bld)69.9 %Eirmho35.0-75.0Mercy HospitalComment on above:Performed By: #### [id number] #### [facility] [address] [place] [address] 78[address]Toutimlb244.0 E9/QEwwvsg501.0-500.0[facility] Comment on above:Performed By: #### [id number] #### [facility] [address] [place] [address] 07818Owpxfhhe mean volume (Bld) [Entitic vol]7.6 fLNormal6.4-10.8 Mer[facility] HospitalComment on above:Performed By: #### [id number] #### [facility] [address], [place] [address]VQF (Bld) [#/Vol]3.8 E12/LLow4.3-5.9[facility] Comment on above:Performed By: #### [id number] #### [facility] [address], [place] [address]YQW corrected for nucl RBC Auto (Bld) [#/Vol]7.6 E9/LNormal 4.0-11.0Mercy HospitalComment on above:Performed By: #### [id number] #### [facility] [address], [place] [address]TSL APTTon 74-71-9275xPEI Coag (Bld) [Time]29.3 sNOMS HealthcareCHEMISTRYOrdered By: SYSTEM SYSTEM on 69-52-3762Bctnm gap [Moles/Vol] 11 mmol/LNormal6 - 16 mEq/LRemisol ChemCalcium [Mass/Vol]9.1 mg/dLNormal8.9 - 11.1 mg/dLRemisol ChemChloride [Moles/Vol]107 mmol/CEgellc453 - 111 mmol/L Remisol ChemCO2 [Moles/Vol]26 mmol/UErzdpj42 - 31 mmol/LRemisol ChemCreatinine [Mass/Vol]1.6 mg/dLHigh0.5 - 1.3 mg/dLRemisol WizazIHJ02 mL/min/1.73 m2Low >=59mL/min/1.73 c5Lrnniun ChemGlucose [Mass/Vol]91 mg/lBWkkznv62 - 199 mg/dL Remisol ChemPotassium [Moles/Vol]4.7 mmol/LNormal3.5 - 5.3 mmol/LRemisol Chem Sodium [Moles/Vol]139 mmol/JDcczih351 - 145 mmol/LRemisol ChemUrea nitrogen [Mass/Vol]24 mg/dLHigh5 - 21 mg/dLRemisol ChemUrea nitrogen/Creatinine [Mass ratio]15 mg/gxGasxqq88 - 20Remisol ChemCOAGULATIONOrdered By: Jennifer Gross on 26-24-0384vFMW Coag (PPP) [Time]34.6 jTfrvpt31.1 - 36.5 second(s)[facility] [place] Auto Coag Comment on above:Interpretive Data: Parameter [...] the same coagulation reagent and instrumentation as [facility] [place]. Currently there are no coagulation studies available worldwide for children to 14 days, andno normal ranges. Heparin therapeutic range (represented by Anti-Factor Xa activity of 0.2 - 0.4 U/mL) corresponds to PTT of 56.6 - 109.0 sec.INR Coag (PPP) [Relative time]1.16 {INR}Invalid Interpretation CodeOKLAHOMA CITY VETERANS [facility] [place] Auto CoagComment on above:Interpretive Data: INR results are specifically intended to assess patients stabilized on long-term Anticoagulation therapy suggested INR s Less Intensive Anticoagulation 2.0 3.0 Conventional Range 3.0 4.5PT Coag (PPP) [Time]13.0 sHigh9.4 - 12.5 second(s)[facility] [place] Auto CoagComment on above:Interpretive Data: 15 days [...] the same coagulation reagent and instrumentation as [facility] [place]. Currently there are no coagulation studies available worldwide for children to 14 days, andno normal ranges.HEMATOLOGYOrdered By: SYSTEM SYSTEM on 31-93-4822Vrmtgajoa/100 WBC (Bld)1.2 %Normal0.0 - 2.0 %Remisol HemeBasophils/Leukocytes Auto (Bld) [Pure # fraction]0.1 E9/LNormal0.0 - 0.2 E9/LRemisol HemeEosinophils (Bld) [#/Vol]0.1 E9/LNormal0.0 - 0.5 E9/LRemisol HemeEosinophils/100 WBC (Bld)1.6 %Normal0.0 - 8.0 %Remisol HemeErythrocyte distribution width (RBC) [Ratio]14.6 %High10.9 - 14.2 %Remisol HemeHematocrit (Bld) [Volume fraction]34.0 %Esujsc36.0 - 46.0 % Remisol HemeHemoglobin (Bld) [Mass/Vol]11.2 g/dLLow12.0 - 16.0 gm/dLRemisol Heme Lymphocytes (Bld) [#/Vol]1.2 E9/LNormal1.0 - 4.0 E9/LRemisol HemeLymphocytes/100 WBC (Bld)15.1 %Jjhzyw91.0 - 50.0 %Remisol HemeMCH (RBC) [Entitic mass]29.3 pg Yofokx05.0 - 34.0 pgRemisol HemeMCHC (RBC) [Mass/Vol]32.9 g/gKIsmjpd64.4 - 36.0 gm/dLRemisol HemeMCV (RBC) [Entitic vol]89.0 cYGiippz72.0 - 100.0 fLRemisol Heme Monocytes (Bld) [#/Vol]0.9 E9/LNormal0.2 - 1.0 E9/LRemisol HemeMonocytes/100 WBC (Bld)12.2 %Normal4.0 - 14.0 %Remisol HemeNeutrophils (Bld) [#/Vol]5.3 E9/L Normal2.0 - 7.5 E9/LRemisol HemeNeutrophils/100 WBC (Bld)69.9 %Puvqsz77.0 - 75.0 %Remisol TqqwSqnwknqe908.0 E9/FTpcvkk823.0 - 500.0 E9/LRemisol HemePlatelet mean volume (Bld) [Entitic vol]7.6 fLNormal6.4 - 10.8 fLRemisol HemeRBC (Bld) [#/Vol]3.8 E12/LLow4.3 - 5.9 E12/LRemisol HemeWBC corrected for nucl RBC Auto (Bld) [#/Vol]7.6 E9/LNormal4.0 - 11.0 E9/LRemisol HemeNo Panel Informationon 08-92-5506PBDOESTCZQPFU HealthcarePT & PTTon 71-38-5922bFME Coag (PPP) [Time] 34.6 second(s)Otsrvz95.1-36.5Fisher [facility]rieger InstituteComment on above:Result Comment: Parameter 15 days - [...] the same coagulation reagent and instrumentation as [facility] [place]. Currently there are no coagulation studies available worldwide for children to 14 days, andno normal ranges. Heparin therapeutic range (represented by Anti-Factor Xa activity of 0.2 - 0.4 U/mL) corresponds to PTT of 56.6 - 109.0 sec.Performed By: #### [id number] #### [facility] [address], [place] [address]JZT Coag (PPP) [Relative time]1.16 {INR}Invalid Interpretation iNkky Kennedy Krieger InstituteComment on above:Result Comment: INR results are specifically intended to assess patients stabilized on long-term Anticoagulation therapy suggested INR???s ???Less Intensive Anticoagulation??? 2.0 ??? 3.0 Conventional Range 3.0 ??? 4.5Performed By: #### [id number] #### [facility] [address], [place] [address]TO Coag (PPP) [Time]13.0 second(s)High9.4-12.5Fisher [facility] Krieger InstituteComment on above:Result Comment: 15 days - 4 [...] the same coagulation reagent and instrumentation as [facility] [place]. Currently there are no coagulation studies available worldwide for children to 14 days, andno normal ranges.Performed By: #### [id number] #### [facility] [address], [place] [address]EWWUPL PROTHROMBIN TIME INR W/O COUMon 40-03-0916PJ Coag (PPP) [Time]11.4 sNOMS HealthcareTBH INR1.08NOAK HealthcareComment on above:DESIRED INR: 2.0-3.0 CONDITIONS NOT LISTED BELOW 2.5-3.5 FOR PROSTHETIC HEART VALVE REPLACEMENT 2.5-3.5 RECURRENT THROMBOSIS UA with Cult Rflxon 93-65-5583Wgeqfqqfv Ql (U)NegativeNormalNegativeMercy HospitalComment on above:Performed By: #### [id number] #### [facility] [address], [place] [address]Hvsepxt (U)ClearNormalClearMercy HospitalComment on above:Performed By: #### [id number] #### [facility] [address], [place] [address]Ztajh (U)YellowNormalYellowMercy HospitalComment on above:Result Comment: Microscopic readings are only performed on those samples that meet specific criteria set forth by [facility].Performed By: #### [id number] #### [facility] [address], [place] [address]Vzfqsho Ql (U)NegativeNormalNegativeMercy Hospital Comment on above:Performed By: #### [id number] #### [facility] [address], [place] [address]Uaerjdopxq Auto test strip (U) [Mass/Vol]NegativeNormalNegative Mercy HospitalComment on above:Performed By: #### [id number] #### [facility] [address], [place] [address]Jyufhec Auto test strip Ql (U)NegativeNormalNegativeMercy HospitalComment on above:Performed By: #### [id number] #### [facility] [address], [place] [address]Utipxxxbc esterase Auto test strip Ql (U)NegativeNormalNegative [facility]cy HospitalComment on above:Performed By: #### [id number] #### [facility] [address], [place] [address]Obqkafo Auto test strip Ql (U)NegativeNormalNegativeMercy HospitalComment on above:Performed By: #### [id number] #### [facility] [address], [place] [address]xE (U)5.0 [pH]Invalid Interpretation Code5.0-9.0Mercy HospitalComment on above:Performed By: #### [id number] #### [facility] [address], [place] [address]Khmciov Ql (U)TraceAbnormalNegAvita Health System Gal[facility] Hospital Comment on above:Performed By: #### [id number] #### [facility] [address], [place] [address]Masfdngw gravity (U) [Rel density]1.016Invalid Interpretation Code1.005-1.030Mercy HospitalComment on above:Performed By: #### [id number] #### [facility] [address], [place] [address]Nlvxbubnlbkw (U) [Mass/Vol]NegativeNormalNegativeMercy HospitalComment on above:Performed By: #### [id number] #### [facility] [address], [place] [address]Siuc of Urine collection methodClean CatchJoint Township District Memorial HospitalComment on above:Performed By: #### [id number] #### [facility] [address], [place] [address]MGPYJKLHJZJlpyhpb By: SYSTEM SYSTEM on 19-65-8409Xhoeolsia Ql (U)NegativeNormalNegativemg/dLOKLAHOMA CITY VETERANS [facility] [place] UA Auto SSClarity (U)Clear (06/26/24 1:56 PM)NormalClearFARBUCKLE [facility] Auto SSColor (U)Yellow 1 (06/26/24 1:56 PM)NormalYellowOKLAHOMA CITY VETERANS [facility] [place] UA Auto SSComment on above:Interpretive Data: Microscopic readings are only performed on those samples that meet specific criteria set forth by [facility].Glucose Ql (U) NegativeNormalNegativemg/dLFT UA Auto SSHemoglobin Auto test strip (U) [Mass/Vol]NegativeNormalNegativemg/dLFT UA Auto SSKetones Auto test strip Ql (U)NegativeNormalNegativemg/dLFT UA Auto SSLeukocyte esterase Auto test strip Ql (U)NegativeNormalNegativeLeu/uLFT UA Auto SSNitrite Auto test strip Ql (U) NegativeNormalNegativemg/dLFT UA Auto SSpH (U)5.0 *NA* (06/26/24 1:56 PM)Invalid Interpretation Code5.0 - 9.0[facility] [place] UA Auto SSProtein Ql (U)Trace mg/dLInvalid Interpretation CodeNegativemg/dLOKLAHOMA CITY VETERANS [facility]IST[facility] [place] UA Auto SSSpecific gravity (U) [Rel density]1.016 *NA* (06/26/24 1:56 PM)Invalid Interpretation Code1.005 - 1.030[facility] [place] UA Auto SS Urobilinogen (U) [Mass/Vol]NegativeNormalNegativemg/dLOKLAHOMA CITY VETERANS [facility] [place] UA Auto SSURINALYSIS Ordered By: Sheri Roberts on 33-58-2163CN Spec DescClean Catch (06/26/24 1:56 PM)NormalOKLAHOMA CITY VETERANS [facility] [place] UA Auto SSeGFRon 19-56-8713oAZW87 mL/min/1.73 m2Low >=59Fisher [facility]rieger InstituteComment on above:Performed By: #### [id number] ####[facility] [address] [place] [address] Albumin [Mass/volume] in Serum or Plasmaon 28-84-8666Mvzctul [Mass/Vol]Albumin [Mass/volume] in Serum or Plasma2.9-4.4FWhite HospitalIgA [Mass/volume] in Serum or Plasmaon 27-23-9522OvG [Mass/Vol]IgA [Mass/volume] in Serum or Duulpz94-842LrooaocauAdena Regional Medical CenterIgG [Mass/volume] in Serum or Plasmaon 84-37-7138McT [Mass/Vol]IgG [Mass/volume] in Serum or Plasma 586-1602A[facility] Regional Medical CenterIgM [Mass/volume] in Serum or Plasmaon 57-37-0181QnE [Mass/Vol]IgM [Mass/volume] in Serum or Rjavow97-786NxjsfmmbhAdena Regional Medical CenterImmunofixation for Urineon 84-91-7730Cuhtiofaiccyqn Immunofixation (U) [Interp]Immunofixation for Urine.[facility] Medical CenterComment on above:No monoclonality detected.Performed at: - Lab[address] [id number] Director: Jozef Medina PhD, Phone: [phone] light chains.kappa.free [Mass/volume] in Serum on 96-20-1547Rwuidoebehqhgv light chains.kappa.free (S) [Mass/Vol]Immunoglobulin light chains.kappa.free [Mass/volume] in SerumAbnormal3.3-19.4[facility] Medical CenterImmunoglobulin light chains.kappa.free/Immunoglobulin light chains.lambda.free [Alexandra 67-44-4378Mcuzftpmohvfxk light chains.kappa.free/Immunoglobulin light chains.lambda.free (S) [Mass ratio] Immunoglobulin light chains.kappa.free/Immunoglobulin light chains.lambda.free [MassAbnormal0.26-1.65A[facility] Medical CenterComment on above: Performed at: [facility] [employer] [facility] [id number] Director: Jozef Medina PhD, Phone: [phone] light chains.lambda.free [Mass/volume] in Serum or Plasmaon 41-58-9817Ryiwfylzzpwfim light chains.lambda.free [Mass/Vol]Immunoglobulin light chains.lambda.free [Mass/volume] in Serum or PlasmaAbnormal5.7-26.3FWhite HospitalIron binding capacity [Mass/volume] in Serum or Plasmaon 18-15-8040Ztwa binding capacity [Mass/Vol]Iron binding capacity [Mass/volume] in Serum or ZvimcqEct666.0-450.0[facility] Medical CenterIron saturation [Mass Fraction] in Serum or Plasmaon 84-95-5690Amyn saturation [Mass fraction]Iron saturation [Mass Fraction] in Serum or PlasmaAdena Regional Medical Center Laboratory - Chemistry and Chemistry - challengeon 60-72-6008Hqegrfvh [Mass/Vol] 147.0 ng/mL8.0-252.0A[facility] Medical CenterIron [Mass/Vol]51.0 ug/dL 50.0-170.0[facility] Medical CenterMagnesium [Mass/Vol]1.6 mg/dLLow 1.8-2.4FWhite HospitalUrate [Mass/Vol]8.0 mg/dLHigh2.6-6.0 [facility] CenterLaboratory - Urinalysison 56-74-8076Hfzydcf (U) [Mass/Vol]30.4 mg/dLHigh<=11.9[facility] Medical CenterNo Panel Informationon 28-87-038282115814-Rouxmtv Vitamin D Total37.9 ng/mLAdena Regional Medical CenterComment on above:<20 ng/mL Vit D cmuzxgvwo42-<30 ng/mL Vit D iihynadhhghw97-574 ng/mL Vit D sufficient>100 ng/mL Potential Toxicity Parathyroid Hormone (Intact)43 pg/hE04-55GrdbxxgpmAdena Regional Medical Center Comment on above:Performed at: [facility] [address] [id number] Director: Jozef Medina PhD, Phone: [phone] Level 3.7 mg/dL2.6-4.7FWhite HospitalProtein Electrophoresis M-Benjy Comment: g/dLNot ObservedAdena Regional Medical CenterComment on above:SPE shows an asymmetrical gamma.Protein Electrophoresis NoteComment.[facility] Medical CenterComment on above:Protein electrophoresis scan will follow via computer,mail, or investigation division lieutenant delivery.Urine Random Kpxrrsbshr801.97 mg/dL 20.00-300.00A[facility] Medical CenterProtein [Mass/volume] in Serum or Plasmaon 99-04-3452Jmszshk [Mass/Vol]Protein [Mass/volume] in Serum or Plasma 6.0-8.5FClinton Memorial Hospitalerum globulin measurement (mass/volume) on 01-91-5155Znodnbmj (S) [Mass/Vol]Serum globulin measurement (mass/volume) 2.2-3.9[facility] Hospitalerum or plasma albumin/globulin mass ratioon 19-08-9698Unluqjy/Globulin [Mass ratio]Serum or plasma albumin/globulin mass ratio0.7-1.7FClinton Memorial Hospitalerum or plasma alpha 1 globulin measurement by electrophoresis (mass/volume)on 35-96-4055Lqizw 1 globulin Elph [Mass/Vol]Serum or plasma alpha 1 globulin measurement by electrophoresis (mass/volume)0.0-0.4FClinton Memorial Hospitalerum or plasma alpha 2 globulin measurement by electrophoresis (mass/volume)on 67-82-5050Vtedw 2 globulin Elph [Mass/Vol]Serum or plasma alpha 2 globulin measurement by electrophoresis (mass/volume)0.4-1.0[facility] Hospitalerum or plasma beta globulin measurement by electrophoresis (mass/volume) on 18-99-7398Bolm globulin Elph [Mass/Vol]Serum or plasma beta globulin measurement by electrophoresis (mass/volume)0.7-1.3FClinton Memorial Hospitalerum or plasma gamma globulin measurement by electrophoresis (mass/volume)on 87-99-1391Opwgr globulin Elph [Mass/Vol]Serum or plasma gamma globulin measurement by electrophoresis (mass/volume)0.4-1.8[facility] Hospitalerum or plasma immunoelectrophoresis interpretationon 06-20-2024 Interpretation IEP [Interp]Serum or plasma immunoelectrophoresis interpretation. [facility] CenterComment on above:Presence of monoclonal protein is unclear at this time. Suggestrepeat in 3 to 6 months if clinically indicated.Urine protein/creatinine ratioon 37-31-5150Exqulgq/Creatinine (U) [Ratio]Urine protein/creatinine ratioAdena Regional Medical CenterUrology Office/Clinic Noteon 91-37-2502Brvcefy Office/Clinic NoteUrology Office/Clinic Note Chief Complaint Cysto [...] for UCC. 4. Aspirin long-term use (Z79.82: roasterman (current) use of aspirin) ASA. No BTs. Has pacemaker. Hx of [place] but was asx, not sure when it [...] with voice recognition artificial intelligence software, specifically [employer], [employer] and or [employer]. Substitutions may have occurred due to the [...] nodules Pulmonary hypertension Spina (more content not included)...[facility] HospitalComment on above:Result Comment: Electronically Signed By: ROSETTA MENDEZ MD\.br\Date and Time Signed: 05/19/24 09:40 EST\.br\Electronically Co- Signed By: Elvi Posadas\.br\Date and Time Co-Signed: 05/19/24 09:01 EST Office Visiton 06-23-7040Leourt-up [id number] Vero Sadler 1950 F Date Provider Department Center 05/09/2024 JOSEY ARNOLD [facility] Family History Problem Relation Age of Onset Other Mother Coronary artery disease Mother Other Mother Other Mother Other Father Hypertension Father Hyperlipidemia Father Other Daughter Family Status - Relation Status Age at Mother Father Daughter Level of Service:63447 [place] OFFICE/OUTPATIENT ESTABLISHED LOW MDM 20 [facility] 3 Viewson 07-92-5930[facility]cl[facility] [address] [place] [address] XRay Report Signed Patient: VERO SADLER MR#: [id number] : 1950 Acct:[id number] Age/Sex: 74 / F ADM Date: 05/09/24 Loc: RAD Attending Dr: John Mathews M.D. Ordering Physician: John Mathews M.D. Date of Service: 05/09/24 Procedure(s): XR sinus min 3V Accession Number(s): [id number] cc: Debbie Bhatia M.D.; John Mathews M.D. The [address] [address] Patient Name: VERO SADLER MRN: [id number] date: 1950 Sex: F Assigned Patient Location: RAD Current Patient Location: RAD Accession/Order Number: [id number] Exam Date: 05/09/2024 12:47 Report Date: 05/09/2024 [...] Kelly Lao M.D.05/09/2024 12:54 PM Dictation Location: [place] [address] Electronically authenticated by: [id number] Y Date: 05/09/2024 12:54 Dictated By: Kelly Lao M.D. Signed By: 05/09/24 1257 DD/ 1254 TD/TT: Computer Numerical Control Operator:LUIS MANUELadiology, Radiologist, - 05/09/[address] [address] XRay Report Signed Patient: VERO SADLER MR#: [id number] : 1950 Acct:[id number] Age/Sex: 74 / F ADM Date: 05/09/24 Loc: RAD Attending Dr: John Mathews M.D. Ordering Physician: John Mathews M.D. Date of Service: 05/09/24 Procedure(s): XR sinus min 3V Accession Number(s): [id number] cc: Debbie Bhatia M.D.; John Mathews M.D. [place] [address] Patient Name: VERO SADLER MRN: [id number] date: 1950 Sex: F Assigned Patient Location: RAD Current Patient Location: RAD Accession/Order Number: [id number] Exam Date: 05/09/2024 12:47 Report Date: 05/09/2024 [...] Kelly Lao M.D.05/09/2024 12:54 PM Dictation Location: [place] [address] Electronically authenticated by: [id number] Y Date: 05/09/2024 12:54 Dictated By: Kelly Lao M.D. Signed By: 05/09/24 1257 DD/ 1254 TD/TT: Computer Numerical Control Operator: NOMKaykay HealthcareRadiology Study observation (narrative)[facility]OMS HealthcareXR Sinuses 3 ViewsOrdered By: Radiologist Radiology on 49-28-6622KDKGPhelps Health Work Phone: ambulatory Visit Summaryon 35-93-9886Dhorgyybvm Visit SummaryAmbulatory Visit Summary VERO SADLER :1950 [...] You may receive a (more content not included)...[facility] HospitalUrology Office/Clinic Noteon 79-92-7336Wxddhnm Office/Clinic NoteUrology Office/Clinic Note Chief Complaint New Pt HPI Staff Vero is a 74 year old female new pt referred by Debibe Bhatia for bladder prolapse. US renal bladder [...] gross hematuria. 4. Aspirin long-term use (Z79.82: roasterman (current) use of aspirin) ASA. No BTs. Has pacemaker. Hx of OK but was asx, not sure when it [...] with voice recognition artificial intelligence software, specifically [employer], [employer] and or [employer]. Substitutions may have occurred due to the [...] kidney disease due t (more content not included)...[facility] HospitalComment on above:Result Comment: Electronically Signed By: ROSETTA MENDEZ MD\.br\Date and Time Signed: 03/31/24 15:13 EST\.br\Electronically Co-Signed By: Elvi Posadas\.br\Date and Time Co- Signed: 03/31/24 15:10 EST\.br\Electronically Co-Signed By: Elvi Posadas\.br\Date and Time Co-Signed: 03/31/24 15:10 ESTOffice Visiton 01-26-2024 Follow-up [id number] Vero Sadler 1950 F Date Provider Department [facility]20[facility] Family History Problem Relation Age of Onset Other Mother Coronary artery disease Mother Other Mother Other Mother Other Father Hypertension Father Hyperlipidemia Father Other Daughter Family Status - Relation Status Age at Mother Father Daughter Level of Service:18956 [place] OFFICE/OUTPATIENT ESTABLISHED LOW MDM 20 [facility] CenterMR LUMBAR SPINE WO CONTRASTon 37-71-7053EO LUMBAR SPINE WO CONTRASTMR LUMBAR SPINE WO [...] neural foraminal narrowing. Electronically signed: Arnol Cutler MD.[facility] Comment on above:Order Comment: ORDER IN EPICNURSNOTEon 10-58-5195VIFCPEDRAtcpi from [employer] prepped pacemaker. Patient verbalizes no issues with device. Monitor hooked up for continuous patient monitoring throughout the scan. [facility] HospitalCBC AUTO DIFFon 09-22-8155DTEI #0.0 103/ulNormal0.0-0.1The [facility] HospitalComment on above:Performed By: #### CBC #### [facility] [address] [place] [address] Dr. Eusebia MoralezBasophils/100 WBC (Bld)0.6 %Normal0.2-2.0[facility] Comment on above:Performed By: #### CBC #### [facility] [address] [place] [address] Dr. Eusebia Carlton #0.2 103/ulNormal0.0-0.7The [facility] HospitalComment on above: Performed By: #### CBC #### [facility] [address] [place] [address] Dr. Eusebia Dunlaposinophils/100 WBC (Bld)2.2 %Normal0.9-7.0[facility] Comment on above:Performed By: #### CBC #### [facility] [address] [place] [address] Dr. Eusebia Dunlaprythrocyte distribution width (RBC) [Ratio]13.0 %Oknewi34.0-15.0 [facility] HospitalComment on above:Performed By: #### CBC #### [facility] [address] [place] [address] Dr. Eusebia MoralezHematocrit (Bld) [Volume fraction]40.5 %Daqazc23.0-48.0[facility] HospitalComment on above:Performed By: #### CBC #### [facility] [address] [place] [address] Dr. Eusebia MoralezHemoglobin (Bld) [Mass/Vol]12.7 g/rNAxoxwl03.0-16.0The [facility] HospitalComment on above:Performed By: #### CBC #### [facility] [address] [place] [address] Dr. Eusebia Pagan #0.02 10e3/ulNormal0.00-0.03The [facility] HospitalComment on above:Performed By: #### CBC #### [facility] [address] [place] [address] Dr. Eusebia Pagan %0.3 %Normal0.0-0.5The [facility] HospitalCommymichigan medical center alma on above: Performed By: #### CBC #### [facility] [address] [place] [address] Dr. Eusebia GreyYadira #1.4 103/ulNormal1.2-3.8The [facility] HospitalComment on above:Performed By: #### CBC #### [facility] [address] [place] [address] Dr. Eusebia Downshocytes/100 WBC (Bld)19.9 %Critically low20.5-60.0The [facility] HospitalComment on above:Performed By: #### CBC #### [facility] [address] [place] [address] Dr. Eusebia PattersonUAL DIFF REQNONormalThe [facility] HospitalComment on above: Performed By: #### CBC #### [facility] [address] [place] [address] Dr. Eusebia Chun (RBC) [Entitic mass]29.1 ikHyagxz59.7-34.0The [facility] HospitalComment on above:Performed By: #### CBC #### [facility] [address] [place] [address] Dr. Eusebia Chun (RBC) [Mass/Vol]31.4 g/qFTvgiff10.9-35.2The [facility] HospitalComment on above:Performed By: #### CBC #### [facility] [address] [place] [address] Dr. Eusebia Chun (RBC) [Entitic vol]92.9 uFMwbeyz29.0-99.0The [facility] HospitalComment on above:Performed By: #### CBC #### [facility] [address] [place] [address] [address] Eusebia Davis #0.7 103/ulNormal0.3-0.8The [facility] HospitalComment on above:Performed By: #### CBC #### [facility] [address] [place] [address] Dr. Eusebia Fanocytes/100 WBC (Bld)9.4 %Normal1.7-12.0The [facility] Comment on above:Performed By: #### CBC #### [facility] [address] [place] [address] Dr. Eusebia Morin #4.7 103/ulNormal1.4-6.5The [facility] HospitalComment on above:Performed By: #### CBC #### [facility] [address] [place] [address] Dr. Eusebia Mccormackutrophils/100 WBC (Bld)67.6 %Ijfllg46.0-75.0The [facility] HospitalComment on above:Performed By: #### CBC #### [facility] [address] [place] [address] Dr. Eusebia Hoyoslet mean volume (Bld) [Entitic vol]9.9 fLNormal9.5-13.5The [facility] HospitalComment on above:Performed By: #### CBC #### [facility] [address] [place] [address] Dr. Eusebia MoralezPLT218 103/srFgjfnj170-852Zri [facility] HospitalComment on above: Performed By: #### CBC #### [facility] [address] [place] [address] Dr. Eusebia MoralezRBC4.36 106/ulNormal4.20-5.40The [facility] HospitalComment on above:Performed By: #### CBC #### [facility] [address] [place] [address] Dr. Eusebia MoralezWBC6.9 103/ulNormal4.0-11.0The [facility] HospitalComment on above: Performed By: #### CBC #### [facility] [address] [place] [address] [address] Eusebia MoralezPROF CHEM 8 (BAS METB)on 21-52-3806Rqmcm gap [Moles/Vol]9.0 mmol/LNormalThe [facility] HospitalComment on above:Performed By: #### BMP #### [facility] [address] [place] [address] [address] Eusebia MoralezCalcium [Mass/Vol]9.2 mg/dLNormal8.5-10.1The [facility] Comment on above:Performed By: #### BMP #### [facility] [address] [place] [address] [address] Eusebia MoralezChloride [Moles/Vol]103 mmol/XUaydqm37-848YxqOhiohealth Van Wert Hospital Comment on above:Performed By: #### BMP #### [facility] [address] [place] [address] Dr. Eusebia MoralezCO2 [Moles/Vol]32.9 mmol/LCritically high21.0-32.0The [facility] HospitalComment on above:Performed By: #### BMP #### [facility] [address] [place] [address] Dr. Eusebia MoralezCreatinine [Mass/Vol]1.74 mg/dLCritically high0.55-1.02The [facility] HospitalComment on above:Performed By: #### BMP #### [facility] [address] [place] [address] Dr. Laws ChangEGFR-AF JWKTAIJD82 mL/min/1.93v1Koxtyjwyvp low>=60The [facility] HospitalComment on above:Performed By: #### BMP #### [facility] [address] [place] [address] Dr. Eusebia DunlapGFR-NON AF IXRCXJWR33 mL/min/1.85v6Taegbjqwet low>=60The [facility] HospitalComment on above:Performed By: #### BMP #### [facility] [address] [place] [address] Dr. Eusebia MoralezGlucose [Mass/Vol]101 mg/yRZrqsri80-437Efd [facility] Comment on above:Performed By: #### BMP #### [facility] [address] [place] [address] [address] Eusebia MoralezPotassium [Moles/Vol]3.9 mmol/LNormal3.5-5.1The [facility] Comment on above:Performed By: #### BMP #### [facility] [address] [place] [address] [address] Eusebia MoralezSodium [Moles/Vol]141 mmol/GRfqwat497-456Lzu [facility] Comment on above:Performed By: #### BMP #### [facility] [address] [place] [address] [address] Eusebia MoralezUrea nitrogen [Mass/Vol]34.0 mg/dLCritically high7.0-18.0The [facility] HospitalComment on above:Performed By: #### BMP #### [facility] [address] [place] [address] [address] Eusebia MoralezUrea nitrogen/Creatinine [Mass ratio]19.5 mg/mgNormalThe [facility] HospitalComment on above:Performed By: #### BMP #### [facility] [address] [place] [address] [address] Eusebia Klein AUTO DIFFon 08-60-7051NTAJ #0.1 103/ulNormal0.0-0.1The [facility] HospitalComment on above:Performed By: #### CBC ####[facility] [address] [place] [address]DrEsther MoralezBasophils/100 WBC (Bld)0.7 %Normal0.2-2.0The [facility] HospitalComment on above:Performed By: #### CBC ####[facility] [address] [place] [address] ChangEO #0.1 103/ulNormal0.0-0.7The [facility] HospitalComment on above:Performed By: #### CBC ####[facility] [address] [place] [address]DrEsther ChangEosinophils/100 WBC (Bld)1.8 %Normal 0.9-7.0The [facility] HospitalComment on above:Performed By: #### CBC ####[facility] U[address] [place], [place] [address]Dr.Eusebia Moralez Erythrocyte distribution width (RBC) [Ratio]13.1 %Qtnhsf94.0-15.0The [facility] HospitalComment on above:Performed By: #### CBC ####[facility] Ewihkvunru[address] [place], [place] [address]Dr.Eusebia MoralezHematocrit (Bld) [Volume fraction]40.2 %Cthqzc35.0-48.0The [facility] HospitalComment on above:Performed By: #### CBC ####[facility] Dikvvlbxpi[address] [place], [place] [address]Dr.Eusebia MoralezHemoglobin (Bld) [Mass/Vol]12.5 g/dL Fuxxya90.0-16.0The [facility] HospitalComment on above:Performed By: #### CBC ####[facility] Rsrxdmmrxd[address] [place], [place] [address]Dr. Eusebia MoralezIG #0.01 10e3/ulNormal0.00-0.03The [facility] HospitalComment on above: Performed By: #### CBC ####[facility] Gepieibxzj[address] [place], [place] [address]Dr.Eusebia MoralezIG %0.1 %Normal0.0-0.5The [facility] HospitalComment on above:Performed By: #### CBC ####[facility] Rdprslswca[address] [place], [place] [address]Dr.Eusebia MoralezLYMPH #1.5 103/ulNormal1.2-3.8The [facility] HospitalComment on above:Performed By: #### CBC ####[facility] Heawwujtcy[address] [place], [place] [address]Dr. Eusebia MoralezLymphocytes/100 WBC (Bld)22.6 %Vspids47.5-60.0The [facility] Comment on above:Performed By: #### CBC ####[facility] Ikwyghcsec[address] [place], [place] [address]Dr.Eusebia MoralezMANUAL DIFF REQNONormalThe [facility] HospitalComment on above:Performed By: #### CBC ####[facility] Rsrhetsoqm[address] [place], [place] [address]Dr.Eusebia MoralezST[facility]Y [facility] (RBC) [Entitic mass]29.3 lcQfrfel45.7-34.0The [facility] HospitalComment on above: Performed By: #### CBC ####[facility] Ysempethds[address] [place], [place] [address]Dr.Eusebia MoralezNORTHER[facility] (RBC) [Mass/Vol]31.1 g/dLNormal 29.9-35.2The [facility] HospitalComment on above:Performed By: #### CBC ####[facility] Kpcpqjhuiy[address] [place], [place] [address]Dr. Eusebia MoralezV (RBC) [Entitic vol]94.4 dAMhueat59.0-99.0The [facility] Comment on above:Performed By: #### CBC ####[facility] Hmubearnrv[address] [place], [place] [address]Dr.Eusebia MoralezMONO #0.6 103/ulNormal0.3-0.8 The [facility] HospitalComment on above:Performed By: #### CBC ####[facility] Vqgpixenhm[address] [place], [place] [address]Dr.Eusebia Moralez Monocytes/100 WBC (Bld)9.1 %Normal1.7-12.0The [facility] HospitalComment on above: Performed By: #### CBC ####[facility] Mulbmalyml[address] [place], [place] [address]Dr.Eusebia MoralezNEUT #4.4 103/ulNormal1.4-6.5The [facility] HospitalComment on above:Performed By: #### CBC ####[facility] Ybnzzjbdlh[address] [place], [place] [address]Dr.Eusebia MoralezNeutrophils/100 WBC (Bld)65.7 %Brpdue31.0-75.0The [facility] HospitalComment on above:Performed By: #### CBC ####[facility] [address] [place] [address]Dr.Eusebia ChangPlatelet mean volume (Bld) [Entitic vol]9.6 fLNormal9.5-13.5 The [facility] HospitalComment on above:Performed By: #### CBC ####[facility] Lmwekwfbjb[address] [place], [place] [address]Dr.Lisalan UqhulDJV646 103/svYwtgbl438-306Wzy [facility] HospitalComment on above:Performed By: #### CBC ####[facility] Clbikytzzy[address] [place], [place] [address]Dr. Lisalan ChangRBC4.26 106/ulNormal4.20-5.40The [facility] HospitalComment on above: Performed By: #### CBC ####[facility] Krojaitrre[address] [place], [place] [address]Dr.Eusebia ChangWBC6.7 103/ulNormal4.0-11.0The [facility] HospitalComment on above:Performed By: #### CBC ####[facility] Tbkciovzji[address] [place], [place] [address]Dr.Eusebia ChangPROF CHEM 8 (BAS METB)on 89-81-0239Rygec gap [Moles/Vol]11.2 mmol/LNormalOhiohealth Van Wert HospitalComment on above:Performed By: #### BMP ####[facility] Xtktdvxtvj65[address] [place], [place] [address]Dr.Eusebia ChangCalcium [Mass/Vol]9.2 mg/dLNormal8.5-10.1The [facility] HospitalComment on above:Performed By: #### BMP ####[facility] Ifanwxvwzd[address] [place], [place] [address]Dr.Yilan ChangChloride [Moles/Vol]109 mmol/LCritically gfsd48-934Xma [facility] HospitalComment on above:Performed By: #### BMP ####[facility] Luublucupe[address] [place], [place] [address]Dr.Yilan ChangCO2 [Moles/Vol] 27.6 mmol/TXwesqx25.0-32.0The [facility] HospitalComment on above:Performed By: #### BMP ####[facility] [address] [place] [address]Dr.Yilan ChangCreatinine [Mass/Vol]1.49 mg/dLCritically high0.55-1.02The [facility] HospitalComment on above:Performed By: #### BMP ####[facility] Fqzditngzp[address] [place], [place] [address]Dr.Yilan ChangEGFR-AF OUFQWDKN78 mL/min/1.23q0Cmxavznduh low>=60The [facility] HospitalComment on above: Performed By: #### BMP ####[facility] Whnkqrgkxn[address] [place], [place] [address]Dr.Yilan ChangEGFR-NON AF XDAOBAQB70 mL/min/1.73m2 Critically low>=60The [facility] HospitalComment on above:Performed By: #### BMP ####[facility] Trsecygbtl[address] [place], [place] [address]Dr. Yilan ChangGlucose [Mass/Vol]89 mg/mVOejgdo02-481Nmw [facility] HospitalComment on above:Performed By: #### BMP ####[facility] Kurmuzqpnd[address] [place], [place] [address]Dr.Yilan ChangPotassium [Moles/Vol]4.8 mmol/LNormal 3.5-5.1The [facility] HospitalComment on above:Performed By: #### BMP ####[facility] Mtnxrjktsl[address] [place], [place] [address]Dr.Yilan Moralez Sodium [Moles/Vol]143 mmol/JAnslks158-283Rtd [facility] HospitalComment on above: Performed By: #### BMP ####[facility] Ulibxowxlx[address] [place], [place] [address]Dr.Yilan ChangUrea nitrogen [Mass/Vol]27.0 mg/dL Critically high7.0-18.0The [facility] HospitalComment on above:Performed By: #### BMP ####[facility] Hoioerplbx[address] [place], [place] [address]Dr. Yilan ChangUrea nitrogen/Creatinine [Mass ratio]18.1 mg/mgNormalThe [facility] HospitalComment on above:Performed By: #### BMP ####[facility] [address] [place], [place] [address]QnDr.Yilan Cobos LUNG CANCER SCREENINGon 92-54-5411XE LUNG CANCER SCREENINGEXAMINATION: CT LUNG CANCER SCREENING [...] Electronically authenticated by: AMBAR MAYA Date: 2022-02-24 08:15NormalOhiohealth Van Wert HospitalPROF CHEM 8 (BAS METB)on 10-20-5989Xwljr gap [Moles/Vol]9.7 mmol/LNormalOhiohealth Van Wert HospitalComment on above:Performed By: #### BMP #### [facility] [address] [place], [place] [address] Dr. Eusebia MoralezCalcium [Mass/Vol]8.8 mg/dLNormal8.5-10.1The [facility] Comment on above:Performed By: #### BMP #### [facility] [address] [place], [place] [address] Dr. Eusebia MoralezChloride [Moles/Vol]107 mmol/RKqsmxk22-798Ucm [facility] Comment on above:Performed By: #### BMP #### [facility] [address] [place] [address] [address] Eusebia MoralezCO2 [Moles/Vol]29.5 mmol/OKlpebh62.0-32.0The [facility] Comment on above:Performed By: #### BMP #### [facility] [address] [place] [address] [address] Eusebia MoralezCreatinine [Mass/Vol]1.83 mg/dLCritically high0.55-1.02[facility] HospitalComment on above:Performed By: #### BMP #### [facility] [address] [place] [address] [address] Eusebia Bush-AF XGYXBHIQ92 mL/min/1.82n1Nyqtblgezq low>=60The [facility] HospitalComment on above:Performed By: #### BMP #### [facility] [address] [place] [address] [address] Eusebia Bush-NON AF ZXYIXEGX23 mL/min/1.59k9Aqzczdcuec low>=60The [facility] HospitalComment on above:Performed By: #### BMP #### [facility] [address] [place] [address] Dr. Eusebia MoralezGlucose [Mass/Vol]87 mg/dBHuaoxm01-174PiuOhiohealth Van Wert Hospital Comment on above:Performed By: #### BMP #### [facility] [address] [place] [address] [address] Eusebia MoralezPotassium [Moles/Vol]5.2 mmol/LCritically high3.5-5.1The [facility] HospitalComment on above:Performed By: #### BMP #### [facility] [address] [place] [address] [address] Eusebia MoralezSodium [Moles/Vol]141 mmol/VNzeovc733-981Vqb [facility] Comment on above:Performed By: #### BMP #### [facility] [address] [place] [address] [address] Eusebia MoralezUrea nitrogen [Mass/Vol]37.0 mg/dLCritically high7.0-18.0[facility] HospitalComment on above:Performed By: #### BMP #### [facility] [address] [place] [address] [address] Eusebia MoralezUrea nitrogen/Creatinine [Mass ratio]20.2 mg/mgNormThe University of Toledo Medical CenterComment on above:Performed By: #### BMP #### [facility] [address] [id number] Eusebia MoralezNM STRESS/REST MULTIon 82-93-1977PL STRESS/REST MULTIPatient: VERO SADLER Exam Date: 01/23/2022 : 1950 Gender:F Ordering : DR DEBBIE BHATIA . Admission #: [id number] Family : Order #: [id number] CLICK HERE TO VIEW EXAM RADIOLOGY REPORT [...] by: Raji Canchola MD on 01/26/2022 at 13:45[facility] ECHOCARDIO M/2D COMPLETEon 77-39-3245GXCVLAGUKB M/2D COMPLETEPatient: VERO SADLER Exam Date: 01/21/2022 : 1950 Gender:F Ordering : DR DEBBIE BHATIA . Admission #: [id number] Family : Order #: [id number] CLICK HERE TO VIEW EXAM ECHOCARDIOGRAM REPORT [...] by: Tato Salcido M.D. on 01/21/2022 at 09:17[facility] HospitalXR DEXA BONE DENSITYon 78-08-7604SL DEXA BONE DENSITYEXAMINATION: XR DEXA BONE DENSITY, [...] Electronically authenticated by: RAJI CANCHOLA Date: 2022-01-21 10:03NoJoint Township District Memorial HospitalBNPon 88-69-8428Lwtezlxpdbn peptide B (Bld) [Mass/Vol]834.0 pg/mLNormal<=900.0The [facility] HospitalComment on above:Performed By: #### TSH, BNP, CMP, T7, LIPID ####[facility] [address] [place] [address]Dr. Eusebia SchaeferC AUTO DIFFon 94-97-1663EQEM #0.0 103/ulNormal 0.0-0.1The [facility] HospitalComment on above:Performed By: #### CBC #### [facility] [address] [address] [address] Eusebia MoralezBasophils/100 WBC (Bld)0.4 %Normal0.2-2.0The [facility] Comment on above:Performed By: #### CBC #### [facility] [address] [place] [address] [address] Eusebia Carlton #0.1 103/ulNormal0.0-0.7The [facility] HospitalComment on above: Performed By: #### CBC #### [facility] [address] [place] [address] [address] Eusebia Dunlaposinophils/100 WBC (Bld)1.1 %Normal0.9-7.0The [facility] Comment on above:Performed By: #### CBC #### [facility] [address] [place] [address] [address] Eusebia Dunlaprythrocyte distribution width (RBC) [Ratio]15.0 %Trqhzh20.0-15.0 The [facility] HospitalComment on above:Performed By: #### CBC #### [facility] [address] [address] [address] Eusebia MoralezHematocrit (Bld) [Volume fraction]39.6 %Atmybr21.0-48.0The [facility] HospitalComment on above:Performed By: #### CBC #### [facility] [address] [address] [address] Eusebia MoralezHemoglobin (Bld) [Mass/Vol]12.4 g/aPKmiaum83.0-16.0The [facility] HospitalComment on above:Performed By: #### CBC #### [facility] [address] [address] [address] Eusebia Pagan #0.02 10e3/ulNormal0.00-0.03The [facility] HospitalComment on above:Performed By: #### CBC #### [facility] [address] [place] [address] Dr. Eusebia Pagan %0.3 %Normal0.0-0.5The [facility] HospitalComment on above: Performed By: #### CBC #### [facility] [address] [place] [address] Dr. Eusebia Lai #1.3 103/ulNormal1.2-3.8The [facility] HospitalComment on above:Performed By: #### CBC #### [facility] [address] [address] [address] Eusebia Downshocytes/100 WBC (Bld)17.9 %Critically low20.5-60.0The [facility] Hospitalment on above:Performed By: #### CBC #### [facility] [address] [address] [address] Eusebia PattersonUAL DIFF REQNONormalThe [facility] HospitalComment on above: Performed By: #### CBC #### [facility] [address] [address] [address] Eusebia Chun (RBC) [Entitic mass]29.8 uoIxrmhk05.7-34.0The [facility] HospitalComment on above:Performed By: #### CBC #### [facility] [address] [place] [address] Dr. Eusebia Chun (RBC) [Mass/Vol]31.3 g/yMQmkiay59.9-35.2The [facility] HospitalComment on above:Performed By: #### CBC #### [facility] [address] [address] [address] Eusebia ChunV (RBC) [Entitic vol]95.2 wRCklanj19.0-99.0The [facility] HospitalComment on above:Performed By: #### CBC #### [facility] [address] [address] [address] Eusebia Davis #0.5 103/ulNormal0.3-0.8The [facility] HospitalComment on above:Performed By: #### CBC #### [facility] [address] [place] [address] Dr. Eusebia Fanocytes/100 WBC (Bld)7.0 %Normal1.7-12.0The [facility] Comment on above:Performed By: #### CBC #### [facility] [address] [place] [address] Dr. Eusebia Morin #5.2 103/ulNormal1.4-6.5The [facility] HospitalComment on above:Performed By: #### CBC #### [facility] [address] [place] [address] Dr. Eusebia Mccormackutrophils/100 WBC (Bld)73.3 %Wlkxnu52.0-75.0The [facility] on above:Performed By: #### CBC #### [facility] [address] [place] [address] Dr. Eusebia Hoyoslet mean volume (Bld) [Entitic vol]9.5 fLNormal9.5-13.5The [facility] HospitalComment on above:Performed By: #### CBC #### [facility] [address] [place] [address] Dr. Eusebia MoralezPLT188 103/kcZdipgu172-015Ahs [facility] HospitalComment on above: Performed By: #### CBC #### [facility] [address] [place] [address] Dr. Eusebia MoralezRBC4.16 106/ulCritically low4.20-5.40The [facility] HospitalComment on above:Performed By: #### CBC #### [facility] [address] [address] [address] Eusebia MoralezWBC7.0 103/ulNormal4.0-11.0The [facility] on above: Performed By: #### CBC #### [facility] [address] [address] [address] Eusebia Paul THYROXINE INDEX T7on 85-12-4396RYV2.59Qvbsju0.30-4.50The [facility] on above:Performed By: #### TSH, BNP, CMP, T7, LIPID ####[facility] [address] [address]Dr. Eusebia MoralezT3U35.0 %Xglsom07.0-39.0The [facility] on above: Performed By: #### TSH, BNP, CMP, T7, LIPID ####[facility] [address] [address]DrRadha MoralezT4 [Mass/Vol]7.00 ug/dLNormal 4.80-13.90The [facility] on above:Performed By: #### TSH, BNP, CMP, T7, LIPID ####[facility] [address] [address]Dr. Eusebia MoralezIRONon 34-91-9282Tlmc [Mass/Vol]58.0 ug/dLNormal 50.0-170.0The [facility] on above:Performed By: #### IRON #### [facility] [address] [address] [address] Eusebia MoralezLIPID PROFILEon 03-95-0445XGKE-HDL RATIO NORMSSelect Medical [facility] on above:Result Comment: 3.3 - 4.4 LOW RISK 4.4 - 7.1 AVERAGE RISK 7.1 - 11.0 MODERATE RISK >11.0 HIGH RISKPerformed By: #### TSH, BNP, CMP, T7, LIPID ####[facility] [address] [address]Dr. Eusebia MoralezCholesterol [Mass/Vol]186 mg/dLNormal<=200[facility] Hospitalment on above:Performed By: #### TSH, BNP, CMP, T7, LIPID ####[facility] [address] [address]Dr. Eusebia MoralezCholesterol in HDL [Mass/Vol]45 mg/uPUyespo77-02UytOhiohealth Van Wert Hospital Comment on above:Performed By: #### TSH, BNP, CMP, T7, LIPID ####[facility] [address] [address]Dr. Eusebia Moralez Cholesterol in LDL [Mass/Vol]118.4 mg/dLShelby Memorial HospitalComment on above:Performed By: #### TSH, BNP, CMP, T7, LIPID ####[facility] [address] [address]Dr. Eusebia Moralez Cholesterol.total/Cholesterol in HDL [Mass ratio]4.1 {ratio}NormalOhiohealth Van Wert HospitalCommymichigan medical center alma on above:Performed By: #### TSH, BNP, CMP, T7, LIPID ####[facility] [address] [address]Dr. Eusebia ChangHDL NORMAL> or = 60 mg/dl - LOW CARDIOVASCULAR RISK <40 mg/dl - HIGH CARDIOVASCULAR RISKShelby Memorial HospitalCommymichigan medical center alma on above:Performed By: #### TSH, BNP, CMP, T7, LIPID ####[facility] [address] [address]Dr. Eusebia ChangLDL CALC NORMALSEE BELOWShelby Memorial HospitalComment on above:Result Comment: <100 mg/dl OPTIMAL 100 - 129 mg/dl NEAR OR ABOVE OPTIMAL 130 - 159 mg/dl BORDERLINE HIGH 160 - 189 mg/dl HIGH >190 mg/dl VERY HIGHPerformed By: #### TSH, BNP, CMP, T7, LIPID ####[facility] [address] [address]Dr. Eusebia Moralez Triglyceride [Mass/Vol]113 mg/dLNormal<=150The [facility] HospitalComment on above:Performed By: #### TSH, BNP, CMP, T7, LIPID ####[facility] [address] [address]Dr. Eusebia TylerLDL CALC22.6 mg/dLNormalThe [facility] HospitalComment on above:Performed By: #### TSH, BNP, CMP, T7, LIPID ####[facility] [address] [address]Dr. Eusebia MoralezPROF 14(COMP METB)on 84-67-8653Trupzxk [Mass/Vol]3.3 g/dLCritically low3.4-5.0The [facility] HospitalComment on above:Performed By: #### TSH, BNP, CMP, T7, LIPID #### [facility] [address] [address] [address] Eusebia MoralezAlbumin/Globulin [Mass ratio]0.9 {ratio}NormalThe [facility] HospitalComment on above:Performed By: #### TSH, BNP, CMP, T7, LIPID #### [facility] [address] [address] [address] Euesbia Priest [Catalytic activity/Vol]81 U/SJuolwp18-183Rgv [facility] HospitalComment on above:Performed By: #### TSH, BNP, CMP, T7, LIPID #### [facility] [address] [address] [address] Eusebia Callejas [Catalytic activity/Vol]19 U/ZMffazr54-12Ydb [facility] HospitalComment on above:Performed By: #### TSH, BNP, CMP, T7, LIPID #### [facility] [address] [address] [address] Eusebia Winston gap [Moles/Vol]12.3 mmol/LNormalThe [facility] Comment on above:Performed By: #### TSH, BNP, CMP, T7, LIPID #### [facility] [address] [address] [address] Eusebia Umanzor [Catalytic activity/Vol]12 U/LCritically bfu55-25Ifi [facility] HospitalComment on above:Performed By: #### TSH, BNP, CMP, T7, LIPID #### [facility] [address] [place] [address] Dr. Eusebia MoralezBilirubin [Mass/Vol]0.4 mg/dLNormal0.2-1.0The [facility] Comment on above:Performed By: #### TSH, BNP, CMP, T7, LIPID #### [facility] [address] [place] [address] Dr. Eusebia MoralezCalcium [Mass/Vol]8.9 mg/dLNormal8.5-10.1The [facility] Comment on above:Performed By: #### TSH, BNP, CMP, T7, LIPID #### [facility] [address] [place] [address] Dr. Eusebia MoralezChloride [Moles/Vol]106 mmol/MDrclsx35-252Blm [facility] Comment on above:Performed By: #### TSH, BNP, CMP, T7, LIPID #### [facility] [address] [place] [address] Dr. Eusebia MoralezCO2 [Moles/Vol]27.4 mmol/CIiqcin22.0-32.0The [facility] Comment on above:Performed By: #### TSH, BNP, CMP, T7, LIPID #### [facility] [address] [place] [address] Dr. Eusebia MoralezCreatinine [Mass/Vol]1.51 mg/dLCritically high0.55-1.02The [facility] HospitalComment on above:Performed By: #### TSH, BNP, CMP, T7, LIPID #### [facility] [address] [place] [address] Dr. Eusebia DunlapGFR-AF RHRCNYAG54 mL/min/1.52x1Qndfensbfk low>=60The [facility] HospitalComment on above:Performed By: #### TSH, BNP, CMP, T7, LIPID #### [facility] [address] [place] [address] Dr. Eusebia DunlapGFR-NON AF ZICQSYFN48 mL/min/1.70u0Odjihllbrp low>=60The [facility] HospitalComment on above:Performed By: #### TSH, BNP, CMP, T7, LIPID #### [facility] [address] [address] [address] Eusebia MoralezGlobulin (S) [Mass/Vol]3.5 g/dLNoJoint Township District Memorial HospitalComment on above:Performed By: #### TSH, BNP, CMP, T7, LIPID #### [facility] [address] [address] [address] Eusebia MoralezGlucose [Mass/Vol]129 mg/dLCritically gjsz49-140Mwu [facility] HospitalComment on above:Performed By: #### TSH, BNP, CMP, T7, LIPID #### [facility] [address] [address] [address] Eusebia MoralezPotassium [Moles/Vol]4.7 mmol/LNormal3.5-5.1The [facility] Comment on above:Performed By: #### TSH, BNP, CMP, T7, LIPID #### [facility] [address] [place] [address] Dr. Eusebia MoralezProtein [Mass/Vol]6.8 g/dLNormal6.4-8.2The [facility] Comment on above:Performed By: #### TSH, BNP, CMP, T7, LIPID #### [facility] [address] [place] [address] Dr. Eusebia MoralezSodium [Moles/Vol]141 mmol/CSiwize824-739Qtp [facility] Comment on above:Performed By: #### TSH, BNP, CMP, T7, LIPID #### [facility] [address] [place] [address] Dr. Eusebia MoralezUrea nitrogen [Mass/Vol]37.0 mg/dLCritically high7.0-18.0The [facility] HospitalComment on above:Performed By: #### TSH, BNP, CMP, T7, LIPID #### [facility] [address] [place] [address] Dr. Eusebia Ortega nitrogen/Creatinine [Mass ratio]24.5 mg/mgNoJoint Township District Memorial HospitalComment on above:Performed By: #### TSH, BNP, CMP, T7, LIPID #### [facility] [address] [place] [address] Dr. Eusebia Vaca 92-78-7049MBI7.068 uIU/mLCritically low0.358-3.740The [facility] HospitalComment on above:Performed By: #### TSH, BNP, CMP, T7, LIPID ####[facility] [address] [place], [place] [address]Yq. Eusebia MoralezCovid-19 PCR (CVDTB)on 81-26-9608GQVL-CoV-2 (COVID-19) RNA DEREK+probe Ql (Unsp spec)Not detectedNormalNOT DETECTEDThe [facility] HospitalComment on above:Result Comment: This test is not yet approved or cleared by the [place] FDA. When there are no FDA-approved or cleared tests available, and other criteria are met, FDA can make tests available under an emergency access mechanism called an Emergency Use Authorization (EUA). The EUA for this test is supported by the Lagging Machine Operator of Health and Human Service's (HHS's) [...] symptoms consistent with SARS-CoV-2.Performed By: #### CVDTBH ####[facility] [address] [address]. Eusebia Barreto LSPINE WO CONon 33-76-5803ESS LSPINE WO CONEXAMINATION: MRI LSPINE WO CON [...] Electronically authenticated by: AMBAR MAYA Date: 2021-10-10 07:29[facility] Pulmonary Progress Noteon 59-52-7989NBX [facility]ST[facility] Pt Name: VERO SADLER [address] [place] [address] MR#: [id number] [place] [address] ACCT: [id number] PROGRESS NOTE- Pulmonary : [facility] Date of Service: 09/13/20 Text NAME: VERO SADLER MR#: [id number] DATE OF SERVICE: 09/13/2020 OUTPATIENT PULMONARY PROGRESS [...] disease, severity unknown. We will try to [facility] Pt Name: VERO SADLER [address] [place] [address] MR#: [id number] [place] [address] ACCT: [id number] PROGRESS NOTE- Pulmonary : [facility] [...] postoperative management if needed. TIM TOSCANO MD DI/MODL/106790/[id number] CC: Dr. Rito Guerrero MD eSign Date and Time Tim Toscano MD Signature on File 09/26/20 1046NormalSt. Mountains Community HospitalGLYCO HEMOon 70-33-1996FnX8i (Bld) [Mass fraction]5.3 %NormalSt. Mountains Community HospitalComment on above:Result Comment: Suggested Diagnosis HbA1c (%) --------- Diabetic > 6.4 Prediabetes 5.7-6.4 Normal < 5.7Performed By: #### L500.27800 #### Test performed at: [address] [address]SPQ W/DIFFon 70-83-6939TIPE ABS0.0 K/uLNormal0.0-0.2St. Mountains Community HospitalComment on above:Performed By: #### L200.15599 #### Test performed at: [address] [address]Kmtpfnqzx/100 WBC (Bld)0.5 %NormalSt. Mountains Community HospitalComment on above:Performed By: #### L200.02089 #### Test performed at: [address] [address]XPU ABS0.1 K/uLNormal0.0-0.5St. Mountains Community HospitalComment on above:Performed By: #### L200.21308 #### Test performed at: [address] [address]Enlstapygup/100 WBC (Bld)1.2 %NormalSt. Mountains Community HospitalComment on above:Performed By: #### L200.48207 #### Test performed at: [address] [address]Uaozmftlojs distribution width (RBC) [Ratio]12.8 %Normal 11.5-14.5St. Mountains Community HospitalComment on above:Performed By: #### L200.87900 #### Test performed at: [address] [address]Reszxgmbbs (Bld) [Volume fraction]40.1 %Cwaivv52.0-48.0St. Mountains Community HospitalComment on above:Performed By: #### L200.30499 #### Test performed at: [address] [address]Heyrphrxjk (Bld) [Mass/Vol]12.4 g/fXShpmon48.0-15.0St. Mountains Community HospitalComment on above:Performed By: #### L200.41233 #### Test performed at: [address] [address]JO %0.3 %NormalSt. Mountains Community HospitalComment on above:Performed By: #### L200.20861 #### Test performed at: [address] [address]NC ABS0.02 K/uLNormal0-0.05St. Mountains Community HospitalComment on above:Performed By: #### L200.97465 #### Test performed at: [address] [address]Hutdezxqtav (Bld) [#/Vol]1.3 10*3/uLNormal1.2-3.5St. Mountains Community HospitalComment on above:Performed By: #### L200.44180 #### Test performed at: [address] [place] [address]Nsmboamcerh/100 WBC (Bld)16.9 %NormalSt. Mountains Community HospitalComment on above:Performed By: #### L200.28489 #### Test performed at: [address] [address]XDE (RBC) [Entitic mass]29.0 ymUsbkhh86.4-34.6St. [facility] Community HospitalComment on above:Performed By: #### L200.80225 #### Test performed at: [address] [address]BSVN (RBC) [Mass/Vol]30.9 g/dLLow31.5-36.5St. [facility] Community HospitalComment on above:Performed By: #### L200.27888 #### Test performed at: [address] [address]WJE (RBC) [Entitic vol]93.7 qYKbwsdd06.0-98.0St. [facility] Community HospitalComment on above:Performed By: #### L200.80121 #### Test performed at: [address] [address]RXQX ABS0.8 K/uLNormal0.0-1.0St. [facility] Community HospitalComment on above:Performed By: #### L200.52354 #### Test performed at: [address] [address]Ybuhrekkf/100 WBC (Bld)9.7 %NormalSt. Mountains Community HospitalComment on above:Performed By: #### L200.89722 #### Test performed at: [address] [address]RQXDUHTSFZ ABS5.5 K/uLNormal1.4-6.6St. [facility] HospitalComment on above:Performed By: #### L200.97849 #### Test performed at: [address] [address]Vuqsbmsksum/100 WBC (Bld)71.4 %NormalSt. Mountains Community HospitalComment on above:Performed By: #### L200.96499 #### Test performed at: [address] [address]XAQR #0.000 K/uLNormal0-0.012St. Mountains Community HospitalComment on above:Performed By: #### L200.79671 #### Test performed at: [address] [address]VOAZ %0.0 /100 WBCNormal0-0.2St. [facility] Community HospitalComment on above:Performed By: #### L200.04541 #### Test performed at: [address] [address]Tjcxgthm mean volume (Bld) [Entitic vol]10.1 fLNormal 8.7-12.4St. Mountains Community HospitalComment on above:Performed By: #### L200.97034 #### Test performed at: [address] [address]Idgxzmcdg (Bld) [#/Vol]236 10*3/dNYfcqlh210-528Tq. Mountains Community HospitalComment on above:Performed By: #### L200.33824 #### Test performed at: [address] [address]TPR (Bld) [#/Vol]4.28 10*6/uLNormal3.5-5.5St. [facility] Community HospitalComment on above:Performed By: #### L200.44792 #### Test performed at: [address] [address]DNF (Bld) [#/Vol]7.7 10*3/uLNormal3.9-11.0St. [facility] Community HospitalComment on above:Performed By: #### L200.29915 #### Test performed at: [address] [address]PREYR PA/AP & LATERAL OR 2 VWSon 40-07-4844EWVZN PA/AP & LATERAL OR 2 VWSSTUDY: CHEST PA/AP LATERAL OR 2 VWS; 08/22/2020 2:35 pm INDICATION: COPD. COMPARISON: None. ACCESSION NUMBER(S): [id number] ORDERING CLINICIAN: Ovidio Baez FINDINGS: The lungs are clear without pleural effusion. Borderline cardiomegaly. Otherwise unremarkable mediastinum, eron, and pulmonary vasculature. Thoracic degenerative changes are present. IMPRESSION: No active disease in the chest.NormalSt. Mountains Community HospitalCOMP META PANELon 10-58-7260Cbfolje [Mass/Vol]3.4 g/dLNormal3.4-5.0St. [facility] Community HospitalComment on above:Performed By: #### L500.01678, L500.35442, L500.51880 #### Test performed at: [address] [address]XOE PHOS TOTAL88 U/OVcxzqg43-327Xt. Mountains Community HospitalComment on above:Performed By: #### L500.42464, L500.58445, L500.54420 #### Test performed at: [address] [address]GSH [Catalytic activity/Vol]17 U/JUpndhk41-47Ub. Mountains Community HospitalComment on above:Performed By: #### L500.68200, L500.26873, L500.86065 #### Test performed at: [address] [address]PFY [Catalytic activity/Vol]12 U/KHwx90-04Rs. Mountains Community HospitalComment on above:Performed By: #### L500.21592, L500.40542, L500.58161 #### Test performed at: [address] [address]UHJP TOTAL0.5 mg/dLNormal0.2-1.0St. Mountains Community HospitalComment on above:Performed By: #### L500.12927, L500.64541, L500.71439 #### Test performed at: [address] [address]Uvpfnic [Mass/Vol]9.0 mg/dLNormal8.5-10.1St. [facility] Community HospitalComment on above:Performed By: #### L500.11215, L500.19885, L500.62052 #### Test performed at: [address] [address]Gmnrnmre [Moles/Vol]107 mmol/CVjuqyg46-544Rq. Mountains Community HospitalComment on above:Performed By: #### L500.30169, L500.89101, L500.46900 #### Test performed at: [address] [address]NC0 [Moles/Vol]29 mmol/ODlsosv70-16Me. [facility] HospitalComment on above:Performed By: #### L500.85122, L500.21468, L500.77309 #### Test performed at: [address] [address]Hkuzeuaqbj [Mass/Vol]1.280 mg/dLHigh0.550-1.020St. [facility] Community HospitalComment on above:Performed By: #### L500.54837, L500.97992, L500.21736 #### Test performed at: [address] [address]Rdjkety [Mass/Vol]90 mg/yBDbnljd92-20Fl. Mountains Community HospitalComment on above:Result Comment: Fasting GLUCOSE reference range has been updated per (ADA) [place] [employer]'s recommendation. 06/07/2018Performed By: #### L500.75215, L500.67904, L500.41833 #### Test performed at: [address] [address]Wocoxlwxb [Moles/Vol]4.4 mmol/LNormal3.5-5.1St. [facility] Community HospitalComment on above:Performed By: #### L500.97486, L500.96169, L500.87368 #### Test performed at: [address] [address]Hffdmti [Mass/Vol]6.8 g/dLNormal6.4-8.2St. [facility] Community HospitalComment on above:Performed By: #### L500.74943, L500.34028, L500.96110 #### Test performed at: [address] [address]Cuacwf [Moles/Vol]142 mmol/KXpvixs740-430Iu. [facility] HospitalComment on above:Performed By: #### L500.46919, L500.24553, L500.59809 #### Test performed at: [address] [address]Ouza nitrogen [Mass/Vol]21 mg/dLHigh7-18St. Mountains Community HospitalComment on above:Performed By: #### L500.40842, L500.08814, L500.40479 #### Test performed at: [address] [address]RNZ ESTIMATEon 06-66-7946CI CSBX70Bwm> 60St. Mountains Community HospitalComment on above:Result Comment: eGFR (Estimated GFR) Units of measure:mL/min/1.73 meters sq. *CALCULATION REVISED 01/01/2015;IDMS-traceable MDRD equation eGFR is derived from the reexpressed MDRD Study equation using the following parameters: serum creatinine, age, gender and race. An eGFR<60 mL/min/1.73m2 for >3 months is consistent with chronic kidney disease. Refer to KDOQI guidelines for clinical interpretation.Performed By: #### L500.14754, L500.55055, L500.46668 #### Test performed at: [address] [address]BS non-AFR UWXB07Bjb> 60St[facility] Comment on above:Performed By: #### L500.44298, L500.33970, L500.56467 #### Test performed at: [address] [address]RWF ULTRA SENSon 85-54-0335PUM ULTRA SENS< 0.005Low 0.358-3.74St. Mountains Community HospitalComment on above:Performed By: #### L500.90182, L500.99564, L500.28887 #### Test performed at: [address] [address]VJVL SP COMP W FLEX/EXT 6 VWSon 52-63-2300RPPR SP COMP W FLEX/EXT 6 VWSSTUDY: LUMB SP COMP W FLEX/EXT 6 VWS ; 07/23/2020 9:01 am INDICATION: PAIN. COMPARISON: None. ACCESSION NUMBER(S): [id number] ORDERING CLINICIAN: Sacha Guerrero FINDINGS: No fracture [...] changes of the lumbar spine without instability.NormalSt. Mountains Community Hospital Vital Signs Date TimeVital SignValuePerforming RlzubholuVtfpbemi53-15-0407 09:10-0500 Diastolic blood cwlkppko67 mm[Hg]Debbie Bhatia MD Work Phone: [phone]-[address] [place], [place] [address]11-10-2025 09:10-0500 Heart rate78 /Ivon Bhatia MD Work Phone: [phone] [place], [place] [address]35311-10-2025 09:10-0500 Respiratory rate16 /Ivon Bhatia MD Work Phone: [phone] [place], [place] [address]35311-10-2025 09:10-0500 SaO2% (BldA) [Mass fraction]98 %Debbie Bhatia MD Work Phone: [phone] [place], [place] [address]311-10-2025 09:10-0500 Systolic blood xofvtkea843 mm[Hg]Debbie Bhatia MD Work Phone: [phone] [place], [place] [address]311-10-2025 07:39-0500 Body fddgku123.1 cmDosissy Bhatia MD Work Phone: [phone] [place], [place] [address]311-10-2025 07:39-0500 Body audezo689.27 kgDebbie Bhatia MD Work Phone: [phone] [place], [place] [address]309-23-2025 10:45-0400 Body bdzkes669.6 cmJohn Mathews MD Work Phone: [phone] [place], [place] [address]Phelps HealthUnborelizh67-43-0360 10:45-0400Body mass index (BMI) [Ratio]47.2 kg/s7GxjmosJohn Mathews MD Work Phone: [phone]-[facility]helps HealthSpdtkxngyn07-13-2012 10:45-0400Body limyii931.74 kgJohn Mathews MD Work Phone: [phone]-[facility] [address]Igxpzcffuo13-53-0981 10:45-0400Diastolic blood rtqzlitz53 mm[Hg]John Mathews MD Work Phone: [phone]-[facility]helps HealthKnuivxrqxh54-18-0447 10:45-0400Heart rate75 /min John Mathews MD Work Phone: [place] [address]Bvvkxicaro83-77-1735 10:45-0400Systolic blood uhoreasf419 mm[Hg]John Mathews MD Work Phone: [facility]ps HealthOswgkjxhpg89-02-2848 11:07-0400Body .56 cmDebbie Bhatia MD Work Phone: [phone] [place], [place] [address]35307-24-2025 11:07-0400 Body mass index (BMI) [Ratio]49.8 kg/v2BtteibtDebbie Bhatia MD Work Phone: [phone] [place], [place] [address]35307-24-2025 11:07-0400 Body ncgixb733.54 kgDebbie Bhatia MD Work Phone: [phone] [place], [place] [address]35307-24-2025 11:07-0400 Diastolic blood mjqopeiz21 mm[Hg]Debbie Bhatia MD Work Phone: [phone] [place], [place] [address]35307-24-2025 11:07-0400 Heart rate79 /Ivon Bhatia MD Work Phone: [phone] [place] 0535307-24-2025 11:07-0400 Respiratory rate16 /Ivon Bhatia MD Work Phone: 1(907)[address] [place], [place] 0535307-24-2025 11:07-0400 SaO2% (BldA) [Mass fraction]97 %Debbie Bhatia MD Work Phone: 1(713)[address] [place], [place] 0535307-24-2025 11:07-0400 Systolic blood jxjfazfy659 mm[Hg]Debbie Bhatia MD Work Phone: 1(850)[address] [place], [place] 0535306-30-2025 13:21-0400 Body okeaie167.6 William Mathews MD Work Phone: [phone] HealthCyrihvaekd69-18-9533 13:21-0400Body mass index (BMI) [Ratio]50.46 kg/v0LxerstJohn Mathews MD Work Phone: 1([phone]-[facility] HealthXvnxjbgpyq67-58-3939 13:21-0400Body fskyqn272.36 kgJohn Mathews MD Work Phone: 1(687)370-[facility] HealthOwxbzsknde27-47-9421 13:21-0400Diastolic blood insmxybz57 mm[Hg]John Mathews MD Work Phone: 1(328)[address] [place], [place] 4094606-30-2025 13:21-0400Heart rate84 /min John Mathews MD Work Phone: 1(311)[address] [place] [address], [place] 4094606-30-2025 13:21-0400Systolic blood nqxzpooa571 mm[Hg]John Mathews MD Work Phone: 1(154)[address] [place], [place] 4094605-28-2025 09:39-0400Body .6 cmJohn Mathews MD Work Phone: 1(349)[address] [place], [place] 4094605-28-2025 09:39-0400Body mass index (BMI) [Ratio]50.46 kg/c5ZhcbwtJohn Mathews MD Work Phone: 1(736)[address] [place] [address], [place] 4094605-28-2025 09:39-0400Body .36 kgJohn Mathews MD Work Phone: 1(691)[address] [place], [place] 4094605-28-2025 09:39-0400Diastolic blood qrevnybo72 mm[Hg]John Mathews MD Work Phone: 1(428)[address] [place] [address], [place] 4094605-28-2025 09:39-0400Heart rate80 /min John Mathews MD Work Phone: 1(883)[address] [place] [address], [place] 4094605-28-2025 09:39-0400Systolic blood qbypmtse859 mm[Hg]John Mathews MD Work Phone: 1(529)[address] [place], [place] 4094605-07-2025 14:20-0400Diastolic blood ftbosclq39 mm[Hg]Debbie Bhatia MD Work Phone: 1(145)813-[address] [place], [place] 7743205-07-2025 14:20-0400 Heart rate67 /Ivon Bhatia MD Work Phone: [facility]05-07-2025 14:20-0400 Respiratory rate18 /Ivon Bhatia MD Work Phone: 1(498)438-[address] [place], [place] 7743205-07-2025 14:20-0400 SaO2% (BldA) [Mass fraction]98 %Debbie Bhatia MD Work Phone: [facility]05-07-2025 14:20-0400 Systolic blood uurrlpml673 mm[Hg]Debbie Bhatia MD Work Phone: [facility]05-07-2025 11:23-0400 Body ijptjz623.56 cmDebbie Bhatia MD Work Phone: [facility]05-07-2025 11:23-0400 Body .81 kgDebbie Bhatia MD Work Phone: 1(770)005-[address] [place], [place] 7743205-01-2025 10:50-0400 Blood Pressure LocationKWABENA NKANSAH-AMANKRA [address] [place], [place] 1367405-01-2025 10:50-0400 Diastolic blood boxpszcl64 mm[Hg]ROSETTA NKANSAH-AMANKRA [facility]05-01-2025 10:50-0400Heart rate74 /minKWABENA NKANSAH-AMANKRA [facility]05-01-2025 10:50-8166SsA4% (BldA) [Mass fraction]94 %ROSETTA NKANSAH-AMANKRA [facility]05-01-2025 10:50-0400 Systolic blood nsmnazro648 mm[Hg]ROSETTA NKANSAH-AMANKRA [facility]05-01-2025 09:45-0400Blood Pressure LocationKWABENA NKANSAH-AMANKRA [facility]05-01-2025 09:45-0400Body qflengctqux26.34 [degF]ROSETTA NKANSAH-AMANKRA [facility]05-01-2025 09:45-0400 Diastolic blood nflemrpq04 mm[Hg]ROSETTA NKANSAH-AMANKRA [facility]05-01-2025 09:45-0400Heart rate67 /minKWABENA NKANSAH-AMANKRA [facility]05-01-2025 09:45-0400Mean blood mm[Hg]ROSETTA NKANSAH-AMANKRA [facility]05-01-2025 09:45-0400 Respiratory rate13 /minKWABENA NKANSAH-AMANKRA [facility]05-01-2025 09:45-0436GqQ1% (BldA) [Mass fraction]93 %ROSETTA NKANSAH-AMANKRA [facility]05-01-2025 09:45-0400 Systolic blood rkytgoah736 mm[Hg]ROSETTA NKANSAH-AMANKRA [facility]05-01-2025 09:44-2614GhB0% (BldA) [Mass fraction]91 %ROSETTA NKANSAH-AMANKRA [facility]05-01-2025 09:30-0400 Respiratory rate13 /minKWABENA NKANSAH-AMANKRA [facility]05-01-2025 09:30-0400Heart rate68 /minKWABENA NKANSAH-AMANKRA [facility]05-01-2025 09:30-0400Blood Pressure LocationKWABENA NKANSAH-AMANKRA [facility]05-01-2025 09:30-0400 Diastolic blood mxgujvzu53 mm[Hg]ROSETTA NKANSAH-AMANKRA [address] [place], [place] 1367405-01-2025 09:30-0400Mean blood srvpfmbi86 mm[Hg]ROSETTA NKANSAH-AMANKRA [address] [place], [place] 1367405-01-2025 09:30-0400 Systolic blood axcvsdyu319 mm[Hg]ROSETTA NKANSAH-AMANKRA [address] [place], [place] 1367405-01-2025 09:25-0400 Respiratory rate18 /minKWABENA NKANSAH-AMANKRA [address] [place], [place] 1367405-01-2025 09:25-0400Mean blood iqdjwaxz17 mm[Hg]ROSETTA NKANSAH-AMANKRA [address] [place], [place] 1367405-01-2025 09:20-0400 Respiratory rate12 /minKWABENA NKANSAH-AMANKRA [address] [place], [place] 1367405-01-2025 09:15-0400Body wampcwpealb88.16 [degF]ROSETTA NKANSAH-AMANKRA [address] [place], [place] 1367405-01-2025 09:15-0400 Respiratory rate12 /minKWABENA NKANSAH-AMANKRA [address] [place], [place] 1367405-01-2025 07:27-0400Mean blood lfyurrcd085 mm[Hg]ROSETTA NKANSAH-AMANKRA [address] [place], [place] 1367405-01-2025 07:26-0400Mean blood qczzumrx927 mm[Hg]ROSETTA NKANSAH-AMANKRA [address] [place], [place] 1367405-01-2025 07:24-0400 Respiratory rate20 /minKWABENA NKANSAH-AMANKRA [address] [place], [place] 1367405-01-2025 07:24-0400Body omczyftaemi50.7 [degF]ROSETTA NKANSAH-AMANKRA [facility]04-15-2025 11:14-0400Body tusfqo623.02 cmA[facility]04-15-2025 11:14-0400Body mass index (BMI) [Ratio]53 kg/v9LgjsljazgAdena Regional Medical Center04-15-2025 11:14-0400Body .6 [degF][facility]04-15-2025 11:14-0400Body .79 kgA[facility] Center04-15-2025 11:14-0400Diastolic blood xnwuccil63 mm[Hg][facility] 06-27-2024 11:14-0400Heart rodi958 /[facility] 06-27-2024 11:14-0400Respiratory rate18 /[facility] 06-27-2024 11:14-3078ToR7% (BldA) [Mass fraction]93 %[facility]04-15-2025 11:14-0400Systolic blood xsdentfa824 mm[Hg][facility]04-14-2025 13:31-0400Heart rate67 /Efraín DESAI-AMANKRA [facility]04-14-2025 13:31-2844EiI0% (BldA) [Mass fraction]94 %ROSETTA DESAI-AMANKRA [facility]04-14-2025 13:30-0400 Respiratory rate20 /TaneshaNA ROBBANSAH-AMANKRA [facility]04-08-2025 09:36-0400Body qrizkh643.6 cmJohn Mathews MD Work Phone: [facility] HealthPnvyvthfmu12-04-7025 09:36-0400Body mass index (BMI) [Ratio]50.46 kg/n0JejjnmJohn Mathews MD Work Phone: [facility] HealthGomuudbkax94-00-4127 09:36-0400Body cohraz065.36 kgJohn Mathews MD Work Phone: 1(467)[address] [place], [place] 4094604-08-2025 09:36-0400Diastolic blood mm[Hg]John Mathews MD Work Phone: 1(067)[address] [place], [place] 4094604-08-2025 09:36-0400Systolic blood nbyxkwag814 mm[Hg]John Mathews MD Work Phone: 1(623)[address] [place], [place] 4094602-25-2025 08:38-0500Body ccejyn565.6 cmJohn Mathews MD Work Phone: 1(475)[address] [place], [place] 4094602-25-2025 08:38-0500Body mass index (BMI) [Ratio]50.81 kg/a2KmxdbbJohn Mathews MD Work Phone: 1(900)[address] [place], [place] 4094602-25-2025 08:38-0500Body lbbcja417.26 kgJohn Mathews MD Work Phone: 1(616)[address] [place], [place] 4094602-25-2025 08:38-0500Diastolic blood qxpwxhbu18 mm[Hg]John Mathews MD Work Phone: 1(284)[address] [place], [place] 4094602-25-2025 08:38-0500Heart rate87 /min John Mathews MD Work Phone: 1(758)[address] [place], [place] 4094602-25-2025 08:38-0500Systolic blood napsqrdc937 mm[Hg]Jhon Mathews MD Work Phone: 1(739)[address] [place], [place] 4094601-17-2025 14:50-0500Blood Pressure LocationKCARMEN DESAI-ANDREEAANK [facility]01-17-2025 14:50-0500Diastolic blood hkwtkwef95 mm[Hg]ROSETTA DESAI-AMANK [facility]01-17-2025 14:50-0500Heart rate86 /minKCARMEN DESAI-AMANKRA [facility]01-17-2025 14:50-0500Respiratory rate16 /Efraín MENDEZ [facility]01-17-2025 14:50-0500Systolic blood uslzfzzv657 mm[Hg]ROSETTA MENDEZ [facility] [place] 548490-24-2024 13:02-0400Body colnne332.56 cmA[facility]10-24-2024 13:02-0400Body mass index (BMI) [Ratio]50.5 kg/h1DswsrmevoAdena Regional Medical Center10-24-2024 13:02-0400Body blzzwpkwuiy63.3 [degF][facility]10-24-2024 13:02-0400Body egsesc055.46 kgAdena Regional Medical Center10-24-2024 13:02-0400Diastolic blood xjbomqyn40 mm[Hg] [facility]10-24-2024 13:02-0400Heart rate81 /[facility]10-24-2024 13:02-0400Respiratory rate18 /[facility]10-24-2024 13:02-9623EbT2% (BldA) [Mass fraction]98 % [facility]10-24-2024 13:02-0400Systolic blood cxgonlky452 mm[Hg][facility] Encounters Encounter DateEncounter TypeCare ProviderFacilityStart: 52-23-7501rjzxkryciwCY ROSETTA DESAIDEBORAHFacility:EU [place]walkStart: 01-22-2025 End: 79-83-3991bimhzdohguDxth TracyFacility:[facility] Start: 88-12-7252Khl-patient / Non-visitImad Tracy BELTRÁN-[facility] Work Phone: Start: 12-05-2024 End: 34-48-1369Rkqhkqrashad Mathews MD Work Phone: [facility] [place] OtolaryngologyStart: 12-05-2024 End: 66-20-4623Xytcmyrashad Mathews MD Work Phone: [facility] [place] OtolaryngologyStart: 12-05-2024 End: 45-08-0522Sqlzzk outpatient visit 25 minutesJohn Mathews MD Work Phone: [facility] [place] OtolaryngologyComment on above:Acute URI (Primary Dx); ETD (Eustachian tube dysfunction), rightStart: 12-05-2024 End: 64-78-9953csljsnqtvxAMSCGQ H TIMMISNot AvailableStart: 78-73-5643gbtbuxnckc JOSEY [facility]: 10-24-2024 End: 80-36-8626tvvmipnaueAUEZ [facility]: 10-23-2024 End: 71-69-6856eesuvhghoaKykuszb Vytautas Giedraitis MDFacility:[facility] [place] Start: 10-16-2024 End: 44-36-4997qpgolfqezoQgboryw Vytautas Giedraitis Facility:[facility] [place] Start: 10-05-2024 End: 98-35-2093tiotkgndmsPrszvny M Hoy MD Work Phone: [facility] Work Phone: Start: 10-05-2024 End: 54-34-3251Lcamfhi encounter procedureLizette Schaffer MD-[facility] Work Phone: Start: 09-25-2024 End: 03-91-2968bhwqwihcezNeeohke Vytautas Gijunaid BELTRÁNFacility:[facility] [place] Start: 09-22-2024 End: 62-85-8567Xzfuzqd encounter procedureLizette Schaffer MD-[facility] Work Phone: Start: 09-22-2024 End: 07-94-3384ttgsebnoyrMjlmhbg M Hoy MD Work Phone: [facility] Work Phone: Start: 09-11-2024 End: 39-07-0309Htnqxh Tom Mathews MD Work Phone: noms CI ENTStart: 09-11-2024 End: 31-90-8847Nwfyxy flowsheetJohn Mathews MD Work Phone: noms CI ENTStart: 09-11-2024 End: 15-90-8621Qnuqlg outpatient visit 15 minutesJohn Mathews MD Work Phone: noms CI ENTComment on above:ETD (Eustachian tube dysfunction), right (Primary Dx); Chronic mastoiditis, rightStart: 09-11-2024 End: 38-91-0820lluawyxwqlNCONPX H TIMMISNot AvailableStart: 08-25-2024 End: 28-97-1807jxwdmrivpgUDCSVCR [facility] Hospitaltart: 19-26-5266vuvynzgcsjPNSV [facility]: 26-91-2566gbepoplsrzUOOU [facility]: 08-21-2024 End: 79-58-7504zagugozdvvLN ROSETTA MENDEZFacility:EU LupekStart: 08-21-2024 End: 09-07-0776Yzygfpe encounter procedureKCARMEN MENDEZ [facility] Start: 08-15-2024 End: 65-22-0454Beiwqrsfn Result EncounterHishondary Yadira Mathews MD Work Phone: noms External Department UnsolicitedStart: 08-15-2024 End: 03-90-3740Segxbslbt Result EncounterHilary H Timmis MD Work Phone: noms External Department UnsolicitedStart: 08-09-2024 End: 90-05-4910Jiazim flowsheetJohn Mathews MD Work Phone: [facility] CI ENTStart: 08-09-2024 End: 85-80-2457Vbnkka flowsheetJohn Mathews MD Work Phone: noms CI ENTStart: 08-09-2024 End: 12-30-7462Bbeovo outpatient visit 25 minutesHimary Mathews MD Work Phone: noms CI ENTComment on above:ETD (Eustachian tube dysfunction), right (Primary Dx); CSF otorrhea; Chronic myringitis of right earStart: 08-09-2024 End: 82-93-7363iglzziddphNAZFVV H TIMMISNot AvailableStart: 50-46-1442Rnv- patient / Non-visitDosissy Bhatia MD Work Phone: [facility]Three [facility] Work Phone: Start: 07-19-2024 End: 45-63-4723Cnudwaupu to same day surgery barnhillDebbie Bhatia MD Work Phone: [facility] Work Phone: Start: 07-19-2024 End: 33-33-5633bskvpltijrGjnvapv M Hoy MD Work Phone: [facility] Work Phone: Start: 30-29-6015vwdbngxxadMAEH [facility]: 07-13-2024 End: 85-22-1029Tvirrnttl to same day surgery Stepan MENDEZ [facility] Start: 07-13-2024 End: 09-64-2782mxjwvowuwqRVMD ROSETTA MENDEZFacility:FTMCStart: 06-27-2024 End: 14-11-6610sjtruptwohOrjovrkphReg[facility] Work Phone: Start: 06-27-2024 End: 36-43-3548Dpanyxm encounter procedureNov[facility] GroupR[facility] Work Phone: Start: 06-26-2024 End: 05-07-1665Dejmozvrc Result EncounterJohn Mathews MD Work Phone: noms External Department UnsolicitedStart: 06-26-2024 End: 94-68-2640Hpkhxwufm Result EncounterJohn Mathews MD Work Phone: noms External Department UnsolicitedStart: 06-26-2024 End: 08-53-4846fhpvqjetkvCLKTMFWThomas MENDEZFacility:FTMCStart: 06-26-2024 End: 36-22-0586Sfomzfc encounter procedureROSETTA MENDEZ [facility] Start: 06-20-2024 End: 02-94-1093Ssxdud flowsAmanda Mathews MD Work Phone: noms CI ENTStart: 06-20-2024 End: 89-10-2333Cgcbfn Tom Mathews MD Work Phone: NOZB CI ENTStart: 93-03-2630Fki-patient / Non-visit [facility] Work Phone: Start: 06-20-2024 End: 83-46-2300Nxqmtq outpatient visit 25 minutesJohn Mathews MD Work Phone: noms CI ENTComment on above:OME (otitis media with effusion), right (Primary Dx); ETD (Eustachian tube dysfunction), right; 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Start: 06-20-2024 End: 93-53-1577qfywpulsbdYXIIPO H TIMMISNot AvailableStart: 05-19-2024 End: 26-05-3106xhmrhyeodfIYEMKYSThomas MENDEZFacility:EU [place]kyStart: 05-09-2024 End: 91-77-9650Cngwuy flowsheetJohn Mathews MD Work Phone: NOMS CI ENTStart: 05-09-2024 End: 75-51-0675Azfleh flowsheetJohn Mathews MD Work Phone: NONW CI ENTStart: 05-09-2024 End: 11-45-4088Muavltsqh Result EncounterJohn Mathews MD Work Phone: NOBV External Department UnsolicitedStart: 05-09-2024 End: 67-36-1773ktycnxewrzFKNUCherrington Hospitaltart: 05-09-2024 End: 75-29-7027Dvabnt outpatient new 45 minutesJohn Mathews MD Work Phone: noms CI ENTComment on above:OME (otitis media with effusion), right (Primary Dx); Nonintractable headache, unspecified chronicity pattern, unspecified headache typeStart: 05-09-2024 End: 77-71-2870dooccbfbzfVCUEKT Yadira MORANSNot AvailableStart: 05-05-2024 End: 30-68-4675zmxohotslvEFAPGBZ NKANSAH-AMANKRAFacility:EU uskyStart: 05-05-2024 End: 29-43-7697Aonvyom encounter procedureROSETTA MENDEZ [facility] Start: 05-01-2024 End: 85-95-3004gncdsmwwsoGjqtfupKale Garcia MDFacility:KYLEIGH Ledesma Start: 03-31-2024 End: 32-98-7782zccyxziwrlNdwfnuy HoyFacility:EU [place]kyStart: 03-31-2024 End: 68-82-3452Rlssvru encounter procedureMikkiCARMEN ZAMUDIOGARYCLAUDIOMichaelCHRIS [facility] Start: 74-47-9917gjepyqzahwRSXHWVV NKANSAH-AMANKRA Facility:EU [place]kyStart: 02-14-2024 End: 92-04-6439nxteuyecnuRlpspfx Vytphillip Gieditis MDFacility:[facility] Start: 02-08-2024 End: 15-40-6378nhvubuorqwUGOIThe Surgical Hospital at Southwoodstart: 01-26-2024 End: 62-39-6447vpbtlaxjibXROJChillicothe Hospitaltart: 01-06-2024 End: 14-57-8216qahynffzqhBgoidldmnReg[facility] Work Phone: Start: 01-06-2024 End: 00-97-1219Lgauqsm encounter procedureNovant Health [facility] [place] Work Phone: Start: 11-23-2023 End: 99-54-3820Tbsapjsxy for other specified special examinationsRYAN López [facility] Centertart: 11-23-2023 End: 94-37-8461fognkevqfxKGXDE J. [facility] Start: 07-17-2022 End: 82-02-2414ucmbamebteUVUH CHACKOFacility:A3Djtvs: 07-02-2022 End: 11-42-9031swqfnhrxysATMP CHACKOFacility:I5Gebmk: 02-33-5031ygubyqgstdHS DEBBIE HOY .Facility:A5Tyliq: 03-09-2022 End: 58-24-8114uwqobczthsVB DEBBIE HOY .Facility:K5Libtl: 02-23-2022 End: 76-84-1192johdtwalaaGE DEBBIE HOY .Facility:O8Pfwxm: 02-02-2022 End: 59-80-0245ebsgcbwyhaPU DEBBIE HOY .Facility:J2Stczg: 01-26-2022 End: 77-97-9247wwdiltgakyRE DEBBIE HOY .Facility:G0Zyiqh: 01-23-2022 End: 39-50-2048mqbokpfjigDY DEBBIE HOY .Facility:I1Jhxbt: 01-21-2022 End: 85-47-5844tkaqrytjfpDW DEBBIE HOY .Facility:X4Gyaes: 01-14-2022 End: 38-92-5400qizvdrvmkvSO DEBBIE HOY .Facility:E3Clzwd: 10-28-2021 End: 69-80-0666dfbpadxdrjXS DEBBIE HOY .Facility:M1Vrboj: 10-09-2021 End: 23-91-8875bmoytuswyoNI DEBBIE HOY .Facility:P2Zzlxv: 08-12-2021 End: 10-71-5460ijehxmrncyGZ DEBBIE HOY .Facility:W5Ezkif: 76-81-0687pllzvzbdls DR DEBBIE BHATIA .Facility:U1Yytsi: 09-29-2016 End: 42-78-3766NqugdecrodFXLUMSY PHYSICIANFacility:[facility] Procedures DateProcedureProcedure DetailPerforming ClinicianStart: 59-44-7190Rljbb culture Debbie Bhatia MD Work Phone: Start: 91-10-1749Uotuo immunofixationDebbie Bhatia MD Work Phone: Comment on above:No monoclonality detected.Start: 65-92-9862Qn orbit sella/post fossa/ear w/o contrast matrlHimary Mathews MD Work Phone: Start: 47-34-7048KqomhlcslnwYrnvqjd Hoy MD Work Phone: Start: 85-32-7429SyspgceknrUXGFWSG NKANSAH-AMANKRA Start: 86-27-8905PQM APTTHimary Mathews MD Work Phone: Start: 75-47-6416MYFGMV PROTHROMBIN TIME INR W/O COUM John Mathews MD Work Phone: Start: 82-99-5788Bcllgbox cystoscope (physical object) ROSETTA ZAMUDIOANSAH-AMANKRA Start: 08-43-6614Mnvur sinuses paranasal compl minimum 3 viewsHilary H Ana M BELTRÁN Work Phone: Start: 02-09-2023 End: 10-55-5006RjjrxrhjpgrXNZSTIY NKANSAH-AMANKRA Start: 82-20-9653TwlcjsultacLGXLHJV NKANSAH-AMANKRA Cataract extraction and insertion of intraocular lens ROSETTA NKANSAH-AMANKRA ft (qualifier value)ROSETTA NKANSAH-AMANKRA H/O: hysterectomyKDRISSBENA NKANSAH-AMANKRA HysterectomyCHAYBENA NKANSAH-AMANKRA ProcedureKDRISSBENA NKANSAH-AMANKRA Total hysterectomyKDRISSBENA NKANSAH-AMANKRA Plan of Treatment DateCare ActivityDetailAuthorStart: 43-27-5851Etznfeehn for malignant neoplasm of colonNOMS HealthcareStart: 09-11-2025 End: 68-98-8915Ulfewuf encounter otzbpaibg79/30/2026 10:20 AM EDT Office Visit [facility] [address] [place] [id number] John Mathews MD [address] [place] [address] NOMKaykay Herrera OtolaryngologyStart: 01-22-2025 [facility] 12-05-2024 End: 00-51-2384Xnqlwrl encounter olvttzknw49/23/2025 10:50 AM EDT Office Visit [facility] [place] [facility] [address] [place] [address] John Mathews MD [address] [place] [address] ArrivedNOMS [place] OtolaryngologyComment on above:ArrivedStart: 02-68-0790Imfstofjn vaccinationNOMS HealthcareStart: 06-17-9149Sialboad identified in Urine by CultureUrine [facility] Healthtart: 48-28-7211Vkbsogshxdhxba for UrineMercy Health Allen Hospitaltart: 91-27-5379Rsnzk cultureAdena Regional Medical Center Start: 91-58-9376EuymftpxzMercy Health Allen Hospitaltart: 09-11-2024 End: 18-25-3635Aeqcstb encounter bhpgnqaqj70/30/2025 1:30 PM EDT Office Visit [facility] [address] [place] [address] John Mathews MD [address] [place] [address] ArrivedNOMS CI ENTComment on above:ArrivedStart: 08-30-2024 End: 19-00-3767Lqbrywh encounter vmqudxiep67/18/2025 9:50 AM EDT Office Visit [facility] [address] [place] [address] John Mathews MD [address] [place] [address] NOMS CI ENTStart: 08-09-2024 End: 47-65-2649Zbjqgjh encounter procedureNOMS CI ENTComment on above:Arrived Start: 07-19-2024 End: 80-58-6155KcfjtpoazMercy Health Allen Hospitaltart: 06-20-2024 End: 43-30-1850Hkcpapq encounter procedureNOMS CI ENTComment on above:Arrived Start: 05-09-2024 End: 56-96-3826Vwxztsf encounter oqpejowiw21/25/2025 8:40 AM EST Office Visit [facility] [address] [facility] [address] [place] [address] John Mathews MD [address] [facility] [address] [place] [address] ArrivedNOMS CI ENTComment on above:ArrivedStart: 20-35-4177Umyulvfls vaccinationInfluenza Vaccine (#1)[facility] HealthcareStart: 69-83-1226Fqauzaxejywf Vaccine: 65+ Years (1 of 1 - PCV)Pneumococcal Vaccine: 65+ Years (1 of 1 - PCV)[facility] HealthcareStart: 15-54-7332Znislsfrlhsj Vaccine: 65+ Years (1 of 1 - PCV)Pneumococcal Vaccine: 65+ Years (1 of 1 - PCV)[facility] HealthcareStart: 96-31-4246Ppqymaruz for malignant neoplasm of breastMammogram [facility] HealthcareStart: 60-30-0859Egozkkpvm for malignant neoplasm of colonNOMS HealthcareAlbumin [Mass/volume] in Serum or [facility]ville HospitalAlbumin/Globulin ratioAdena Regional Medical CenterElectrophoresis: vyryc-0-cadevqruFybpiuqiwAdena Regional Medical CenterElectrophoresis: chfye-8-ogaacyfgWogcxreaiAdena Regional Medical CenterElectrophoresis: beta-globulin [facility] CenterElectrophoresis: gamma globulinAdena Regional Medical CenterGlobulin [Mass/volume] in SerumAdena Regional Medical CenterIgA [Mass/volume] in Serum or PlasmaAdena Regional Medical CenterIgG [Mass/volume] in Serum or [facility] HospitalIgM [Mass/volume] in Serum or [facility]ville HospitalImmunofixation for UrineAdena Regional Medical CenterKaabrazo [facility] light chains.free [Mass/volume] in [facility] SystemKapp light chains.free/Lambda light chains.free [Mass Ratio] in [facility] Health SystemLambda light chains.free [Mass/volume] in Serum or [facility] Patient EducationPremier Health [facility] Work Phone: Protein [Mass/volume] in Serum or PlasmaAdena Regional Medical CenterRenal function 1999 panel - Serum or PlasmaAdena Regional Medical CenterRenal function 1999 panel - Serum or PlasmaAdena Regional Medical CenterRenal function 1999 panel - Serum or [facility] Hospitalerum immunofixationSanta Barbara Cottage [facility] Immunizations Immunization DateImmunizationNotesCare [id number]-TdN-4 (COVID-19) mRNA BNT-162b2 kitKCARMEN MENDEZ [id number]-SfjnkKettering [facility] [place] 22-43-7033ZMDJ-CoV-2, UnspecifiedJohn Mathews MD Work Phone: [facility]hel[facility] [id number]-QxI-2 (COVID-19) mRNA BNT-162b2 hanCARMEN DESAI-CHRIS [phone]-OkwwtKettering [facility] [place] Payers DatePayer CategoryPayerPolicy [id number] 2018Private Health Insurance [id number] 2014Medicare [id number] [id number] [id number] 2.16.840.1.924949.3.57[id number] 2.16.840.1.859703.3.57[id number] 2.16.840.1.393096.3.57[id number] 2.16.840.1.954277.3.57[id number] 2.16.840.1.567727.3.57[id number] 2.16.840.1.584478.3.57[id number] 2.16.840.1.334277.3.57[id number] 2.16.840.1.024472.3.57[id number] 2.840.1.856438.3.57[id number] 2.16.840.1.307159.3.57[id number] 2.840.1.376962.3.57[id number] 2.840.1.684121.3.57[id number] 2.840.1.346363.3.57[id number] 2.16.840.1.992826.3.57[id number] 2.16.840.1.332786.3.57[id number] 2.16840.1.314460.3.57[id number] 2.16.840.1.602504.3.57[id number] 2.16.840.1.728788.3.57[id number] 2.16.840.1.578414.3.57[id number] 2.16.840.1.943142.3.57[id number] 2.16.840.1.630869.3.57[id number] 2.16.840.1.717059.3.57[id number] 2.840.1.610161.3.579.[id number] 2.16.840.1.425109.3.57[id number] 2..0.1.385887.3.57[id number] 2..840.1.699125.3.57[id number] 2..840.1.584074.3.579.2.[id number] 2.16.840.1.372992.3.579.[id number] 2..840.1.688105.3.579.[id number] 2.16.840.1.672853.3.579.[id number] 2.16.840.1.093249.3.[id number] 2t832974-6sq3-47j1-15i0-[id number] 2.16.840.1.0004[id number] 2.16.840.1.042124.3.579.2.531 [id number] 2.16.840.1.997844.3.579.2.531 Social History DateTypeDetailFacilityStart: 01-06-2024 End: 41-32-4520Fwembtu smoking status NHISEx-smoker (finding)[facility] Hospitaltart: 91-12-6035Dlp Assigned At [facility] HospitalTobacc smoking statusNeverExecutive [facility] of [facility] SanduskyStart: 05-09-2024 End: 43-90-7199Owy Assigned At [facility] HospitalTobacco smoking status NHISTobacco smoking consumption unknownNOMS HealthcareStart: 08-03-0147Utt assigned at birthNot on fileNOMS HealthcareStart: 05-09-2024 Tobacco smoking status NHISNever smoked tobaccoNOMS HealthcareStart: 05-09-2024 Tobacco use and exposureSmokeless tobacco non-userNOMS HealthcareStart: 05-09-2024 End: 61-68-4737Hujyhhmwr beverage intakeEx-drinker (finding)[facility] Start: 05-09-2024 End: 19-72-6318Xfhypxn of Social functionNOMS HealthcareToMartins Ferry Hospital Comment on above:quit in 2009Tobacco smoking status [facility] Start: 07-09-2016 End: 83-26-7707LcyYogvhs (finding)[facility] Goals DatePatient GoalDesired Activity/State Functional Status TtsiRzzzjqjogcUtvuwhPtayhsfw44-54-3634Gcjgjgtmgd StatusK[facility]01-17-2025Functional StatusN/AExecutive [facility]rology of [facility] Clinical Notes 01-26-2024 to 12-05-2024 Note Date & AwryMkpbLckrcnew17-47-2800 History of Present illness Narrative* John Mathews [...] Active Ambulatory Problems Diagnosis Date Noted A-fib ([facility]) 04/21/2022 Chest pain 07/27/2016 CKD (chronic kidney disease) stage 4, GFR 15-29 ml/min ([facility]) 01/26/2024 Clinical trial exam 04/23/2022 Dyspnea 07/27/2016 Edema 07/27/2016 Essential hypertension 01/25/2020 Fatigue 07/27/2016 Hyperkalemia 01/26/2024 Lightheadedness 07/27/2016 Lower abdominal pain 01/30/2022 Nonsustained paroxysmal ventricular tachycardia (HCC) 11/30/2022 Obstructive sleep apnea syndrome 10/02/2022 Other secondary pulmonary hypertension (HCC) 12/15/2022 Secondary hyperparathyroidism ([facility]) 01/26/2024 Spinal stenosis of lumbar region with neurogenic claudication 01/30/2022 Spondylosis of lumbosacral region without myelopathy or radiculopathy 01/30/2022 Symptomatic bradycardia 01/01/2023 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 VT (ventricular tachycardia) ([facility]) 04/29/2022 Aspirin long-term use 05/09/2024 CAD (coronary artery disease) 05/09/2024 Chronic obstructive pulmonary disease (HCC) 05/09/2024 Former smoker 05/09/2024 History of colon polyps 05/09/2024 History of tobacco abuse 05/09/2024 Hypercholesterolemia 05/09/2024 Hypothyroidism 05/09/2024 Kidney stones 05/09/2024 Morbid obesity ([facility]) 05/09/2024 Multiple pulmonary nodules 05/09/2024 Stage 3a chronic kidney disease ([facility] 01/31/2024 Status post lumbar spine operation 05/09/2024 Stress incontinence, female 05/09/2024 Intrinsic sphincter deficiency (ISD) 09/11/2024 Body mass index (BMI) 45.0-49.9, adult ([facility] 10/24/2024 Resolved Ambulatory Problems Diagnosis Date Noted [...] URI. Tube looks good. documented in this encounterPhelps HealthHuzenjgaux19-08-1871 NoteUT Cardiology Consult Note Reason for visit: [...] kidney disease COPD (chronic obstructive pulmonary disease) ([facility]/HCC) Hypertension Myocardial infarction ([facility]) Obstructive sleep apnea 10/02/2022 SOBIA=17.7 events/hour; Pranav SaO2=76%; Ncydcw=500.0 lbs; BMI=52.7 kg/m2, Home Sleep Apnea Testing on 09/25/2022 at [facility] P[facility]: Past Surgical History: Procedure Laterality Date CARDIAC CATHETERIZATION COLONOSCOP (more content not included)...[facility] 09-11-2024 History of Present illness Narrative* [...] Active Ambulatory Problems Diagnosis Date Noted A-fib ([facility]) 04/21/2022 Chest pain 07/27/2016 CKD (chronic kidney disease) stage 4, GFR 15-29 ml/min ([facility]) 01/26/2024 Clinical trial exam 04/23/2022 Dyspnea 07/27/2016 Edema 07/27/2016 Essential hypertension 01/25/2020 Fatigue 07/27/2016 Hyperkalemia 01/26/2024 Lightheadedness 07/27/2016 Lower abdominal pain 01/30/2022 Nonsustained paroxysmal ventricular tachycardia ([facility]) 11/30/2022 Obstructive sleep apnea syndrome 10/02/2022 Other secondary pulmonary hypertension ([facility]) 12/15/2022 Secondary hyperparathyroidism ([facility]) 01/26/2024 Spinal stenosis of lumbar region with neurogenic claudication 01/30/2022 Spondylosis of lumbosacral region without myelopathy or radiculopathy 01/30/2022 Symptomatic bradycardia 01/01/2023 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 VT (ventricular tachycardia) ([facility]) 04/29/2022 Aspirin long-term use 05/09/2024 CAD (coronary artery disease) 05/09/2024 Chronic obstructive pulmonary disease ([facility]) 05/09/2024 Former smoker 05/09/2024 History of colon polyps 05/09/2024 History of tobacco abuse 05/09/2024 Hypercholesterolemia 05/09/2024 Hypothyroidism 05/09/2024 Kidney stones 05/09/2024 Morbid obesity ([facility]) 05/09/2024 Multiple pulmonary nodules 05/09/2024 Stage 3a chronic kidney disease ([facility]) 01/31/2024 Status post lumbar spine [...] will resolve without tx documented in this encounterPhelps HealthHuhoxlglwi56-12-3047 NoteHistory: possible TIA Procedure: Multiplanar, multisequence imaging [...] consolidation right mastoid sinus Electronically signed: Estrada Raman.[facility] HospitalComment on above:Order Comment: Order in [id number] Hospital Discharge instructions Patient Education 08/21/2024 10:41:06 [...] (electrical nerve stimulation). ?For women, using a emergency medical technician to [...] right after experiencing incontinence. General instructions Take qjsd-rxb-lxhfvsr and prescription medicines only as told by [...] important. Where to find more information National [place] of [employer] and Digestive and Kidney Diseases: www.niddk.nih.gov [employer]: www.urologyhealth.org Contact a health care [...] provider. Document Revised: 10/04/2020 Document Reviewed: 10/04/2020 [employer] Patient Education 2023 [employer] Follow Up Care 07/14/2024 09:39:25 With:ROSETTA MENDEZ MD, SASKIA Address: When: Unknown [facility] 06-09-2025 NotePatient Education Urology Urinary Incontinence [...] your health care provider (more content not included)...[facility] 08-09-2024 History of Present illness Narrative* [...] Active Ambulatory Problems Diagnosis Date Noted A-fib ([facility]) 04/21/2022 Chest pain 07/27/2016 CKD (chronic kidney disease) stage 4, GFR 15-29 ml/min ([facility]) 01/26/2024 Clinical trial exam 04/23/2022 Dyspnea 07/27/2016 Edema 07/27/2016 Essential hypertension ([facility]) 01/25/2020 Fatigue 07/27/2016 Hyperkalemia 01/26/2024 Lightheadedness 07/27/2016 Lower abdominal pain 01/30/2022 Nonsustained paroxysmal ventricular tachycardia ([facility]) 11/30/2022 Obstructive sleep apnea syndrome 10/02/2022 Other secondary pulmonary hypertension 12/15/2022 Secondary hyperparathyroidism ([facility]) 01/26/2024 Spinal stenosis of lumbar region with neurogenic claudication 01/30/2022 Spondylosis of lumbosacral region without myelopathy or radiculopathy 01/30/2022 Symptomatic bradycardia 01/01/2023 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 VT (ventricular tachycardia) ([facility]) 04/29/2022 Aspirin long-term use 05/09/2024 CAD (coronary artery disease) ([facility]) 05/09/2024 Chronic obstructive pulmonary disease ([facility]) 05/09/2024 Former smoker 05/09/2024 History of colon polyps 05/09/2024 History of tobacco abuse 05/09/2024 Hypercholesterolemia ([facility]) 05/09/2024 Hypothyroidism ([facility]) 05/09/2024 Kidney stones 05/09/2024 Morbid obesity ([facility]) 05/09/2024 Multiple pulmonary nodules 05/09/2024 Stage 3a chronic kidney disease (HCC) ([facility]) 01/31/2024 Status post lumbar spine [...] for mild RT myringitis documented in this encounterPhelps HealthAjmbxqffgy33-60-7512 [place] [address] Colonoscopy Procedure Report Signed Patient: Vero Sadler MR#: [id number] : 1950 Acct:[id number] Age/Sex: 74 / F Adm Date: 5 Loc: Room: Type: [facility] Attending Dr: Kal Molina MD Copies [...] was slowly withdrawnwith the findings as below. Manor bowel prep score was good. Findings: Cecum: [...] Molina MD 07/19/24 1321 Signed By: 07/19/[address] [place], [place] [id number] [place] [address] Gastroenterology H&P Signed Patient: Vero Sadler MR#: [id number] : 1950 Acct:[id number] Age/Sex: 74 / F Adm Date: 5 Loc: Room: Type: [facility] Attending Dr: Kal Molina MD Copies [...] MD 07/19/24 1319 Signed By: 07/19/24 1320 [facility]05-03-2025 NoteProgress Note-Physician Patient: VERO SADLER Age: 74 years Sex: Female : 1950 Associated Diagnoses: None Author: Pedro Walden MD Postoperative Information Postoperative disposition: Postoperative disposition: To PACU. Optimetrix number: Optimetrix number [id number]. Anesthetic utilized: General. Health Status Allergies: Allergic Reactions (Selected) Severity Not Documented Adhesive Bandage- Hives. Physical Examination VS/Measurements Pain Assessment: Controlled. General: Awake, Appropriate. Respiratory: Adequate air exchange. Cardiovascular: Stable. Neurological Assessment Anesthetic outcome No anesthetic complications noted. Adequate pain relief. Review / Management Condition: Stable. Plan Transfer/Discharge: Transfer/Discharge Discharge when meets criteria ( To home ).[facility]:Result Comment: Electronically Signed By: Pedro Walden MD\.br\Date and Time Signed: 07/15/24 16:46 EDT 07-13-2024 Hospital Discharge instructions Patient Education 07/13/2024 10:40:08 Post Op Patient Instructions - FT (CUSTOM) Follow Up Care 05/19/2024 09:13:05 With:ROSETTA MENDEZ Address:Unknown When: Unknown Comments:1 month [facility] [id number] NotePatient Education - Text [facility]05-01-2025 Note Progress Note-Physician Patient: VERO SADLER [...] Problems Aspirin long-term use / SNOMED CT 7952616147 / Confirmed Atrial fibrillation / SNOMED CT 28807286 / Confirmed Bradycardia / SNOMED CT 86053444 / Confirmed CAD (coronary artery disease) / SNOMED CT 10513170 / Confirmed Chronic kidney disease due to hypertension.. / SNOMED CT 1620123137 / Confirmed Chronic kidney disease stage 3A. / SNOMED CT 2441132918 / Confirmed Chronic kidney disease stage 4 / SNOMED CT 6914405022 / Confirmed Chronic kidney disease, stage 3 / SNOMED CT 4384384524 / Confirmed Chronic obstructive pulmonary disease / SNOMED CT 75470491 / Confirmed Former smoker / SNOMED CT 89509625 / Confirmed History of colon polyps / SNOMED CT 1530465283 / Confirmed History of operative procedure on lumbar spinal structure / SNOMED CT 0396855895 / Confirmed History of tobacco abuse / SNOMED CT 0126352783 / Confirmed Hypercholesterolemia / SNOMED CT 47615528 / Confirmed Hyperkalemia / SNOMED CT 74648610 / Confirmed Hypertension / SNOMED CT 2187852714 / Confirmed Hypertensive disorder / SNOMED CT 3452593738 / Confirmed Hypothyroidism / SNOMED CT 33728545 / Confirmed Morbid obesity / SNOMED CT 843562265 / Confirmed Multiple pulmonary nodules / SNOMED CT 7911168631 / Confirmed Pulmonary hypertension / SNOMED CT 449011617 / Confirmed Spinal stenosis / SNOMED CT 159474391 / Confirmed Stress incontinence, female / SNOMED CT 503150486 / Confirmed Canceled: Kidney stones / SNOMED CT 367060525 pt denies, Active Problems (23) Aspirin long-term [...] selected or recorded. Fam (more content not included)...[facility] HospitalComment on above: Result Comment: Electronically Signed By: Pedro Walden MD\.br\Date and Time Signed: 07/13/24 08:41 [id number] Evaluation + Plan noteExtracted from:Title: ANES Pre-operative Note uthor:Pedro Walden MDDate:07/12/24 Plan [place] [employer] (ASA) physical status classification: Class III. Anesthetic Preoperative Plan: Anesthesia Monitored anethesia care.[facility] 04-15-2025 Evaluation note* Diagnosis Onset Date Resolution Status Admit Date Anemia of renal disease acuteApril 2024 10:58amCKD (chronic kidney disease) stage 4, GFR 15-29 ml/minacuteApril 2024 10:58amHyperkalemiaacuteApril 2024 10:58am HyperlipidemiaacuteApril 2024 10:58amHypertensive chronic kidney disease with stage 1 through stage 4 chronic kiacuteApril 2024 10:58am HyperuricemiaacuteApril 2024 10:58amHypomagnesemiaacuteApril 2024 10:58amSecondary hyperparathyroidismacuteApril 2024 10:58am [facility] Work Phone: [phone]) 294-473604-08-2025 History of Present illness Narrative* John Mathews [...] kidney disease) stage 4, GFR 15-29 ml/min ([facility]) 01/26/2024 Clinical trial exam 04/23/2022 Dyspnea 07/27/2016 [...] 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 VT (ventricular tachycardia) ([facility]) 04/29/2022 Aspirin long-term use 05/09/2024 CAD (coronary artery disease) (CMS/HCC) 05/09/2024 Chronic obstructive pulmonary disease ([facility]/HCC) 05/09/2024 Former smoker 05/09/2024 History of colon polyps 05/09/2024 History of tobacco abuse 05/09/2024 Hypercholesterolemia (CMS/HCC) 05/09/2024 Hypothyroidism (CMS/HCC) 05/09/2024 Kidney stones 05/09/2024 Morbid obesity ([facility]) 05/09/2024 Multiple pulmonary nodules 05/09/2024 Stage 3a chronic kidney disease (HCC) ([facility]) 01/31/2024 Status post lumbar spine [...] Hold ASA 10d preop documented in this encounterPhelps HealthIeeyjzclol64-23-9957 NotePatient Education Obstetrics and Gynecology Kegel Exercises [...] provider. Document Revised: 07/10/2021 Document Reviewed: 07/10/2021 [employer] Patient Education ? 2023 [employer] 05-09-2024 NoteUT Cardiology Consult Note Reason [...] kidney disease COPD (chronic obstructive pulmonary disease) ([facility]) Hypertension Myocardial infarction ([facility]) Obstructive sleep apnea 10/02/2022 SOBIA=17.7 events/hour; Pranav SaO2=76%; Xegvgu=793.0 lbs; BMI=52.7 kg/m2, Home Sleep Apnea Testing on 09/25/2022 at [facility]: Past Surgical History: Procedure Laterality Date CARDIAC CATHETERIZATION COLONOSCOPY 02/09/2023 EYE SURGERY CATARACT FOOT SURGERY Right tendon repair HYSTERECTOMY INSERT / REPLACE / REMOVE PACEMAKER 01/12/2023 OTHER SURGICAL HISTORY Bilateral 05/31/2023 S1 TFESI - 20% pain relief SH: Social Determinants of Health Tobacco Use: Low Risk (05/09/2024) Re[facility] from [facility] Healthcare Patient History Smoking Tobacco Use: [...] Transportation Needs (01/05/2023) Tr (more content not included)...[facility] History of Present illness Narrative* John Mathews MD - 05/09/2024 8:40 AM EST Subjective Patient ID: Vero Sadler is a 74 y.o. female who presents for Ear Problem (Audio 05/04/24 [facility] ) Pt had the flu 4 weeks ago and now unable to hear on the RT. Also has RT LAMBERT. No tx yet per pt. 05/04audio shows moderate to severe right mixed HL with a flat tymp. Review of Systems All other systems reviewed and are negative. No family history on file. 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 VT (ventricular tachycardia) ([facility]) 04/29/2022 Aspirin long-term use 05/09/2024 CAD (coronary artery disease) ([facility]) 05/09/2024 Chronic obstructive pulmonary disease ([facility]) 05/09/2024 Former smoker 05/09/2024 History of colon polyps 05/09/2024 History of tobacco abuse 05/09/2024 Hypercholesterolemia ([facility]) 05/09/2024 Hypothyroidism ([facility]) 05/09/2024 Kidney stones 05/09/2024 Morbid obesity ([facility]) 05/09/2024 Multiple pulmonary nodules 05/09/2024 Stage 3a chronic kidney disease (HCC) ([facility]) 01/31/2024 Status post lumbar spine [...] possible cause of LAMBERT. documented in this encounterPhelps HealthRjdzzpjfmi37-31-9184 Hospital Discharge instructions Follow Up Care 04/12/2024 08:02:27 With:BRYAN BELTRÁN, SASKIA SARGENT Address: When: Unknown [facility] 01-17-2025 Hospital Discharge instructions Patient Education 03/31/2024 [...] including vitamins, herbs, eye drops, creams, and zpze-iwd-ilaikgo medicines. Any problems you or family members [...] provider tells you to take them. Taking myng-fdr-yccwjij medicines, vitamins, herbs, and supplements. Tests You [...] Follow these instructions at home: Medicines Take emhh-otr-mnuyoam and prescription medicines only as told by [...] provider. Document Revised: 11/12/2021 Document Reviewed: 10/11/2020 [employer] Patient Education 2023 [employer] 03/31/2024 15:09:42 Injection Treatments for Urinary Incontinence [...] including vitamins, herbs, eye drops, creams, and gduz-exz-eajeanq medicines. Any problems you or family members [...] provider tells you to take them. Taking kzll-syg-tkuoask medicines, vitamins, herbs, and supplements. General instructions [...] provider. Document Revised: 10/04/2020 Document Reviewed: 10/04/2020 [employer] Patient Education 2023 [employer] 03/31/2024 15:09:34 Kegel Exercises Kegel Exercises Kegel [...] provider. Document Revised: 07/10/2021 Document Reviewed: 07/10/2021 [employer] Patient Education 2023 [employer] Follow Up Care 02/22/2024 14:36:40 With:BRYAN BELTRÁN, ROSETTA, URL Address: When: Unknown [facility] 01-17-2025 NotePatient Education Obstetrics and Gynecology [...] provider. Document Revised: 07/10/2021 Document Reviewed: 07/10/2021 [employer] Patient Education ? 2023 [employer] Urology Cystoscopy Cystoscopy is a procedure [...] including vitamins, herbs, eye drops, creams, and aoxi-lqm-jmoivqp medicines. ??? Any problems you or family [...] tells you to take them. ??? Taking pyqj-rcw-ydostnk medicines, vitamins, herbs, and supplements. Tests You may have an exam or testing, such as: ??? X-rays of the bladder, urethra, or kidneys. ??? CT scan of the abdomen or pelvis. ??? Urine tests to check for signs of infection. General instructions ??? Follow instructions fr (more content not included)...[facility] Cardiology Clinic Note Chief Complaint: Patient is here today for follow up [facility] ED visit. She was having [...] kidney disease, COPD (chronic obstructive pulmonary disease) ([facility]/HCC), Hypertension, Myocardial infarction ([facility]), and Obstructive sleep apnea (10/02/2022). [...] Disp: 479 g, Rfl (more content not included)...[facility] note No data available for this section [facility] Evaluation + Plan note Future Appointments Appointment Date:07/13/2024 09:00:00 AM Scheduled Provider: Location:[facility] Appointment Type:Surgery [facility] Evaluation + Plan note Future Appointments Appointment Date:02/20/2025 11:00:00 AM Scheduled Provider:ROSETTA MENDEZ MD Location:[facility] Appointment Type:URO Office Visit 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 Work Phone: Evaluation note* Diagnosis ETD (Eustachian tube dysfunction), right- Primary CSF otorrhea Chronic myringitis of right ear documented in this encounter [facility] HealthcareEvaluation note* Diagnosis ETD (Eustachian tube dysfunction), right- Primary Chronic mastoiditis, right documented in this encounter [facility] HealthcareEvaluation note* Diagnosis Onset Date Resolution Status Admit Date Anemia of renal disease acuteJuly 2024 11:03amCKD (chronic kidney disease) stage 4, GFR 15-29 ml/minacuteJuly 2024 11:03amHyperkalemiaacuteJuly 2024 11:03am HyperlipidemiaacuteJuly 2024 11:03amHypertensive chronic kidney disease with stage 1 through stage 4 chronic kiacuteJuly 2024 11:03amHyperuricemia acuteJuly 2024 11:03amHypomagnesemiaacuteJuly 2024 11:03amSecondary hyperparathyroidismacuteJuly 2024 11:03am [facility] Work Phone: Evaluation note* Diagnosis Acute URI- Primary Acute upper respiratory infections of unspecified site ETD (Eustachian tube dysfunction), right documented in this encounter [facility] HealthcareEvaluation noteNo assessment information availablePremier [facility] Work Phone: History and physical note Author Kal Molina [facility] CenterNote Date/TimeMay 2024 1:20pmEric Ville [phone] Gastroenterology H&P Signed Patient: Vero Sadler MR#: [id number] : 1950 Acct:[id number] Age/Sex: 74 / F Adm Date: 5 Loc: Room: Type: [facility] Attending Dr: Kal Molina MD Copies [...] M.D. Documented By: Kal Molina MD 07/19/24 1315 Signed By: <Electronically signed by Kal Molina MD> 07/19/24 1320 [facility] Work Phone: Hospital Discharge instructions No data available for this section [facility] Discharge instructionsAdditional Instructions DISCHARGE [...] NOT operate machinery such as power tools, [employer] mowers, [employer] blowers, sewing machines, etc. for 24 hours. [...] years. -Follow up with PCP. -Office number [phone]. [facility] Work Phone: Progress note No data available for this section [facility] Reason for referral (narrative)No reason for referral information availableOhiohealth [facility] Work Phone: Summary Purpose Family History [...] disease) stage 4, GFR 15-29 ml/min Hyperkalemia [id number] Secondary hyperparathyroidism Chronic kidney disease Chief Complaint [...] and content) DATE CREATED AUTHOR 09/08/2017 [facility] DATE CREATED AUTHOR AUTHOR'S ORGANIZ ATION 09/27/2020 [facility] DATE CREATED AUTHOR AUTHOR'S ORGANIZ ATION 07/24/2022 [facility] DATE CREATED AUTHOR AUTHOR'S ORGANIZ ATION 06/27/2024 [facility] DATE CREATED AUTHOR AUTHOR'S ORGANIZ ATION 09/13/2024 [facility] DATE CREATED AUTHOR AUTHOR'S ORGANIZ ATION 11/01/2024 [facility] DATE CREATED AUTHOR AUTHOR'S ORGANIZ ATION 11/15/2024 [facility] DATE CREATED AUTHOR AUTHOR'S ORGANIZ ATION 12/06/2024 [facility] DATE CREATED AUTHOR AUTHOR'S ORGANIZ ATION 01/25/2025 [facility] Care Teams (unrecognized sec tion [...] MemberRelationshipSpecialtyStart DateEnd Date Debbie Bhatia MD [address] [place] [address] PCP - [facility]ics[facility]05/09/24Team MemberRelationshipSpecialtyStart DateEnd Date Debbie Bhatia MD [address] [place] [address] PCP - GeneralFamily Medicine05/09/24Team MemberRelationshipSpecialtyStart DateEnd Date Debbie Bhatia MD [address] [facility] [place] [address] PCP - GeneralFamily Medicine05/09/24Team MemberRelationshipSpecialtyStart DateEnd Date Debbie Bhatia MD [address] [place] [facility] [place] [address] PCP - GeneralFamily Medicine05/09/24 Team Status: Active Member Role Status Dates Debbie Bhatia MD Primary Care Provider Active Start: July 19, 2024 Imad Tracy , MDAttending Provider, Other ProviderActiveStart: July 19, 2024 Team MemberRelationshipSpecialtyStart DateEnd Date Debbie Bhatia MD [address] [place] [facility] [place] [address] PCP - GeneralFamily Medicine08/02/24Team MemberRelationshipSpecialtyStart DateEnd Date Debbie Bhatia MD [address] [place] [facility] [place] [address] PCP - GeneralFamily Medicine08/02/24Team MemberRelationshipSpecialtyStart DateEnd Date Debbie Bhatia MD [address] [place] [facility] [place] [address] PCP - GeneralFamily Medicine08/02/24Team MemberRelationshipSpecialtyStart DateEnd Date Debbie Bhatia MD [address] [place] [facility] [place] [address] PCP - GeneralFamily Medicine08/02/24Team MemberRelationshipSpecialtyStart DateEnd Date Debbie Bhatia MD [address] [place] [address] PCP - [facility]08/02/24 Team Status: Inactive Member Role Status Dates Debbie Bhatia MD Primary Care Provider Active Start: October 05, 2024 End: October 05bdRebecca Huerta ProviderActiveStart: October 05, 2024 End: October 05, 2024Team MemberRelationshipSpecialtyStart DateEnd Date Debbie Bhatia MD [address] [place] [phone] PCP - [facility]08/02/24 Team Status: Active Member Role/Relationship [...] BE BASED ON THE PRIMARY CLINICAL RECORDS. [facility] [employer] [facility]. provides no warranty or guarantee of the accuracy or completeness of information in this document.
--- OUTSIDE RECORDS SUMMARY | 2025-02-12 06:47 | XMS_ITS | Clinical Summary ---
Author Organization [facility] Address [address] [place] [address] Phone Care Team Providers Care Registration Coordinator Name Role Phone Unavailable Primary Care Provider Unavailabl e Social History Tobacco UseTypesPacks/DayYears UsedDateSmoking Tobacco: Never Assessed CommentsUnknownSex and Gender InformationValueDate RecordedSex Assigned at Not on fileLegal KqtPxjzpy50/26/2022 7:26 PM ESTGender IdentityNot on fileSexual OrientationNot on file Plan of Treatment Not on file
--- OUTSIDE RECORDS SUMMARY | 2025-02-12 06:47 | XMS_ITS | Clinical Summary ---
Author Organization [facility] Address [address] [place] [address] Care Team Providers Care Sox Analyst Name Role Phone Jeremiah Arvizu MD Primary Care Provider [phone] Allergies Active AllergyReactionsCriticalityNoted DateCommentsFluticasone Propionate Ulsmknl6110/24/20245588RhoapboilzwGairzWwlyge24/16/2022 Yeast infection Medications MedicationSigDispense QuantityRefillsLast FilledStart DateEnd [...] Active Problems ProblemNoted DateDiagnosed DateAnemia of renal qewkhnh7301/30/2025ardiac wbvipjqau38/18/9943Vmvxhhvlfmjpv29/18/4211Knztqabgdkhyvy28/18/2025ody mass index (BMI) 45.0-49.9, adult10/24/2024Intrinsic sphincter deficiency (ISD) 09/11/2024spirin long-term use05/09/2024AD (coronary artery disease)05/09/2024 Chronic obstructive pulmonary npubgak5305/09/2024Former ltpoik0805/09/2024History of colon ldyxex6305/09/2024History of tobacco abuse05/09/2024Hypercholesterolemia 05/09/20243905Imuzbhwlcgioaa69/25/2025Kidney krxtcu0605/09/2024Morbid obesity 05/09/2024Multiple pulmonary srokcos5505/09/2024Status post lumbar spine operation 05/09/2024Stress incontinence, yckiiq6305/09/2024Stage 3a chronic kidney disease 01/31/20246987Uepenjelbqxd54/13/2024KD (chronic kidney disease) stage 4, GFR 15-29 ml/min01/26/2024Secondary mpapxapkjnfycuzytfc89/13/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 Symptomatic redyhtzbxld60/20/2023 Assessment & Plan (01/01/2023 5:19 PM EDT): [...] voiced understanding and agreement Other secondary pulmonary rzcodsyrtavw15OSA on CPAP12/15/2022 Nonsustained paroxysmal ventricular johhlqtwldp10/18/2023 Assessment & Plan (01/01/2023 5:22 PM EDT): Continue coreg 6.25 mg bid Obstructive sleep apnea/ Overview (10/02/2022): SOBIA=17.7 events/hour; Pranav SaO2=76%; Ujiffq=521.0 lbs; BMI=52.7 kg/m2, Home Sleep Apnea Testing on09/25/2022 at [facility] [place] (ventricular tachycardia)04/29/2022 Overview (04/29/2022): Added automatically from request for surgery [id number] Clinical trial exam04/23/2022 Overview (04/23/2022): Added automatically from request for surgery [id number] A-fib04/21/2022Spinal stenosis of lumbar region with neurogenic claudication 01/30/2022Lower abdominal pain01/30/2022pondylosis of lumbosacral region without myelopathy or ubebwbsqtoeko74/18/2022Essential eovutegdomlj72/12/2020 Chest pain07/27/20163256Kjbizga78/15/1948Xsfqm71/15/5060Aacmugk15/15/2017 Zxbrfwkcvwjcjbh12/15/2017 Encounters DateTypeDepartmentCare WkhhNvvbnavgsew00/01/2025 9:00 AM ESTAncillary Procedure [facility] [address] [place] [address] Adjustment and management of cardiac iixcdwtvu62/27/2025Orders Only [facility] [address] [place] [phone] Irvin Posada MD 01/31/2025 9:00 AM ESTOffice Visit [facility] [address] [place] [address] Tato Salcido MD Cardiac pacemaker in situ (Primary Dx); Precordial pain01/31/2025Orders Only [facility] [address] [place] [phone] Nevaeh Curiel MA Elevated erythrocyte sedimentation rate (Primary Dx)01/24/2025 10:15 AM EST Ancillary Procedure [facility] [address] [place] [address] Adjustment and management of cardiac pacemakerfrom Last 3 Months Immunizations ImmunizationAdministration DatesNext DuePfizer SARS-CoV-2 Ehvexskdmfi89/23/2021, 12/17/2020Unspecified Sars-Cov-2 Lyrefwarsdc12/23/2021,12/17/2020 Family History Medical HistoryRelationNameCommentsmalig neoplastic diseaseDaughter HyperlipidemiaFatherHypertensionFathermalig [...] and Gender InformationValue Date RecordedSex Assigned at UjsffVuzkvq55/06/2025 4:22 PM EDTLegal SexFemale 09/10/2021 9:47 PM EDTGender ByjrklkvNdrtcr82/06/2025 4:22 PM EDTSexual OrientationHeterosexual or Vlffsmrj51/06/2025 4:22 PM EDT Last Filed Vital Signs Vital SignReadingTime TakenCommentsBlood Kdwlxcps251/7301/31/2025 8:40 AM EST Mytwb680901/31/2025 8:40 AM NORNabyjnzkwdd58 ??C (96.8 ??F)02/09/2023 2:25 PM EST Respiratory Ojak4394 12:45 PM EDTOxygen Mbjcnpbmbl99%01/31/2025 8:40 AM ESTInhaled Oxygen Concentration--Whwesl841 kg (275 lb)01/31/2025 8:40 AM EST Ofzxqb508.6 cm (5' 4 )01/31/2025 8:40 AM ESTBody Mass Index47. 8:40 AM EST Plan of Treatment DateTypeDepartmentCare Team (Latest Contact Info)Skksgwrmaac29/01/2025 9:[address] [facility] [address] [place] [address] Adjustment and management of cardiac bithuifyy61/16/2025 10:[address] [facility] [address] [place] [facility] [place] [address] Irvin Posada MD [address] [place] [address] Health MaintenanceDue DateLast DoneCommentsCT Cwxkkbfjlqdo1950FIT-DNA 1950FIT1950FOBT1950Medicare Annual Wellness (AWV)1950 Zatffczmkqemj1950epression Xtaqgmodg15/08/1963Pneumococcal Vaccine: 50+ Years (1 of 2 - PCV)1970Adult Dmeicng4202/19/19738069Ziuoooukd08/08/1991Zoster Vaccines (1 of 2)2001Fall Risk Nclgkwbcp63/08/2016COVID-19 Vaccine ( season)51, 01/04/2021, 12/17/2020, Additional history existsInfluenza Vaccine (#1)11/13/20242311Zhgxbjzyhoq52/28/45619604/11/2022, 02/09/2023, 07/06/2018Colorectal Cancer Yioyaitod87/28/2033HIB VaccinesAged Out No longer eligible based on [...] ImplantedTypeAreaManufacturerDevice IdentifierShelf Expiration DateModel / Serial / LotNito Bland,S 60, - [id number] - [id number] Implanted:Qty: 1 on 01/12/2023 by [id number] / [id number] / Lead,Kaykay Beauchamp 53, - [id number] - [id number] Implanted:Qty: 1 on 01/12/2023 by [facility]ock [id number] / [id number] / Pacer [address] Dr-T - [id number] - [id number] Implanted:Qty: 1 on 01/12/2023 by [facility]ino Bullock [facility] Hospital[id number] / [id number] / Super[employer] Ids - 10mm Implanted:Qty: 1 on 11/30/2022 by [facility]: Spine LumbarBoston [id number]/02/2027 101-9810 / / [id number] Ids - 12mm Implanted:Qty: 1 on 11/30/2022 by [facility]: Spine LumbarBoston [id number]/ 101-9812 / / [id number] Procedures Procedure NamePriorityDate/TimeAssociated DiagnosisCommentsCARDIAC DEVICE CHECK CHECK - IWIWWXYhulxgw36/28/2025 3:37 PM EST Adjustment and management of cardiac pacemaker CARDIAC DEVICE CHECK CHECK - GLNQCVBicbadj16/28/2025 3:33 PM EST Adjustment and management of cardiac pacemaker CARDIAC DEVICE CHECK - REMOTE - ZXRENOAIWMxzofda21/27/2025 12:00 AM ESTCARDIAC DEVICE CHECK - REMOTE - KZKXENEDEKnsfvzg94/27/2025 12:00 AM ESTCARDIAC DEVICE CHECK CHECK - HVWYOQMihbzyg89/02/2025 1:40 PM EDT Adjustment and management of cardiac pacemaker CARDIAC DEVICE CHECK CHECK - MQKUVKPpenjku41/02/2025 12:46 PM EDT Adjustment and management of cardiac pacemaker DIAGNOSTIC TDESZDGHSTTIfkjrww04/28/2023 2:19 PM EST Abdominal pain, unspecified abdominal location Change in bowel habits Chronic diarrhea Family history of colon cancer in father Family history of rectal cancer Family history of Crohn's disease from Last 3 Months or Most Recently Relevant to Health Maintenance Results * CARDIAC DEVICE CHECK - REMOTE - PACEMAKER (02/09/2025 3:37 PM EST) Only the most recent of4 resultswithin the time period is included. Specimen (Source)Anatomical Location / LateralityCollection Method / Volume Collection TimeReceived Time Narrative Authorizing ProviderResult TypeResult [facility] IMPLANTABLE CARDIAC DEVICE PROCEDURESFinal ResultPerforming OrganizationAddressCity/State/ZIP Code Phone Number CPACS * Cardiac device check - Remote pacemaker (02/08/2025 12:00 AM EST) Only the most recent of2 resultswithin the time period is included. Anatomical RegionLateralityModalityOtherSpecimen (Source)Anatomical Location / LateralityCollection Method / VolumeCollection TimeReceived Time02/08/2025 Narrative Authorizing ProviderResult TypeResult StatusLa[facility] IMPLANTABLE CARDIAC DEVICE PROCEDURESFinal Result [...] Sedation: ??RADAMES Attending Physician: ??Dr. Dario Calderon Selling Underwriter: ??Rachel Prado, Fellow Procedure Details Informed consent [...] Sadler TypeRelation to PatientDate of BirthPhone Billing AddressPersonal/DfgybuCtjt1950 [phone] [address] Care Teams Team MemberRelationshipSpecialtyStart Date Jeremiah Arvizu MD [address] [facility] [place] [address] PCP - Zskjbsi46/14/22
--- OUTSIDE RECORDS SUMMARY | 2025-02-12 06:47 | XMS_ITS | Patient Health Record ---
Author Organization The [facility] in [place] Address [address] [place] [address] Care Team Providers Care Risk Management Consultant Name Role Phone Dontrell Arvizu Primary Care Provider Beatriz Campos Unavailable [phone] AntonioDonal Unavailable [phone] Allergies Allergen (clinical drug ingredient) Drug/Non Drug Allergy documented on EMR Reaction Allergy Type Onset Date Status Plastic Tape (uncoded)dhvyjVvkdjrx42/27/2023ctivefluticasoneFlonaseUnknownDrug AllergyActivePenicillinUnknownDrug AllergyActive Results Component Value Reference Range Notes CT lower leg LT wo con Reviewed date:08/15/2024 04:17:45 PM Interpretation: Performing Lab: Notes/Report: Source Facility: [place] [address] [place] [address] CT Scan Report Signed Patient: JUSTIN SADLER MR#: [id number] : 1950 Acct:[id number] Age/Sex: 74 / F ADM Date: 08/15/24 Loc: CT Attending Dr: Debbie Arvizu M.D. Ordering Physician: Debbie Arvizu M.D. Date of Service: 08/15/24 Procedure(s): CT lower leg LT wo con Accession Number(s): [id number] cc: Debbie Arvizu M.D. [place] [address] Patient Name: JUSTIN SADLER MRN: [id number] date: 1950 Sex: F Assigned Patient Location: CT Current Patient Location: CT Accession/Order Number: [id number] Exam Date: 08/15/2024 15:40 Report Date: 08/15/2024 [...] Ashford M.D. 08/15/2024 3:45 PM Dictation Location: [place] [address] Electronically authenticated by: [id number] Y Date: 08/15/2024 15:45 Dictated By: Sacha Ashford D.O. Signed By: 08/15/24 1547 DD/ 1545 TD/TT: Slat Twister: FERRITIN Reviewed date:06/20/2024 03:31:27 PM Interpretation: Performing Lab: Notes/Report: [facility] , Ferritin 147.0 8.0-252.0 ng/mL Performing Lab:see noteML - [facility] LBVITAMIN D 25 [place] Reviewed date:06/20/2024 03:31:27 PM Interpretation: Performing Lab: Notes/Report: [facility] ,Vitamin D37.9 <20 ng/mL Vit D deficient 20-<30 ng/mL Vit D insufficient 30-100 ng/mL Vit D sufficient >100 ng/mL Potential Toxicity Performing Lab:[facility] LBImmunofixation, Urine Reviewed date:06/22/2024 08:14:52 PM Interpretation: Performing Lab: Notes/Report: [facility] ,Immunofixation, UrineComment. No monoclonality detected. Performed at: [facility] [address] [place] [id number] Private Duty Nurse: Jozef Medina PhD, Phone: [phone] Performing Lab:see [facility] LBPTT Reviewed date:06/26/2024 08:31:41 PM Interpretation: Performing Lab: Notes/Report: [facility] ,Partial Thromboplastin Time29.322.3-36.2 secPerforming Lab:see [facility] LBProthrombin Time INR Reviewed date:06/26/2024 08:31:41 PM Interpretation: Performing Lab: Notes/Report: [facility] ,Prothrombin Time11.49.0-11.6 secINR1.08 DESIRED INR: 2.0-3.0 CONDITIONS NOT LISTED BELOW 2.5-3.5 FOR PROSTHETIC HEART VALVE REPLACEMENT 2.5-3.5 RECURRENT THROMBOSIS Performing Lab:see [facility] LBAnaerobic Culture Reviewed date:08/17/2024 08:13:14 PM Interpretation: Performing Lab: Notes/Report: [facility] ,Anaerobic CultureSee Below For Report Anaerobic Culture Anaerobic CultureSpecimen has been received and testing has been initiated. Anaerobic Culture Anaerobic Culture Anaerobic Culture Anaerobic CultureNo anaerobes recovered. Anaerobic Culture Performing Lab:[facility] LBAerobic Culture Reviewed date:08/17/2024 08:13:14 PM Interpretation: Performing Lab: Notes/Report: [facility] ,Aerobic CultureSee Below For Report Aerobic Culture Aerobic CultureSpecimen has been received and testing has been initiated. Aerobic Culture Aerobic Culture Aerobic Culture Aerobic CultureNo growth in 36 - 48 hours. Aerobic Culture Aerobic CulturePerformed at: [facility] Aerobic Culture Aerobic [address] [place], [place] [id number] Aerobic Culture Aerobic CultureLab Director: Jozef Medina PhD, Phone: [phone] Aerobic Culture Performing Lab:see note - [facility] LB SEE REPORT - Interactive Digital Media Specialist Id information not found for OBX-specific equity research analyst legend Aerobic Culture Reviewed date:09/10/2024 02:54:10 PM Interpretation: Performing Lab: Notes/Report: [facility] ,Aerobic CultureSee Below For Report Aerobic Culture Aerobic CultureMixed skin sonny Aerobic Culture Aerobic CulturePerformed at: [facility] Aerobic Culture Aerobic [address] [place], [place] [id number] Aerobic Culture Aerobic CultureLab Director: Jozef Medina PhD, Phone: [phone] Aerobic Culture Performing Lab:see note - [facility] LB SEE REPORT - Interactive Digital Media Specialist Id information not found for OBX-specific equity research analyst legend Anaerobic Culture Reviewed date:09/10/2024 02:54:10 PM Interpretation: Performing Lab: Notes/Report: [facility] ,Anaerobic CultureSee Below For Report Anaerobic Culture Anaerobic CultureNo anaerobic growth in 72 hours. Anaerobic Culture Performing Lab:see note - [facility] LBAerobic Culture Reviewed date:09/07/2024 07:14:18 PM Interpretation: Performing Lab: Notes/Report: [facility] ,Aerobic CultureSee Below For Report Aerobic Culture Aerobic CultureMixed skin sonny Aerobic Culture Aerobic CulturePerformed at: [facility] Aerobic Culture Aerobic [address] [place], [place] [id number] Aerobic Culture Aerobic CultureLab Director: Jozef Medina PhD, Phone: [phone] Aerobic Culture Performing Lab:see note - [facility] LB SEE REPORT - Interactive Digital Media Specialist Id information not found for OBX-specific equity research analyst legend Aerobic Culture Reviewed date:08/13/2024 04:24:34 PM Interpretation: Performing Lab: Notes/Report: [facility] ,Aerobic CultureSee Below For Report Aerobic Culture Aerobic CultureSpecimen has been received and testing has been initiated. Aerobic Culture Aerobic Culture Aerobic Culture Aerobic CultureNo growth in 36 - 48 hours. Aerobic Culture Aerobic CulturePerformed at: [facility] Aerobic Culture Aerobic [address] [place], [place] [id number] Aerobic Culture Aerobic CultureLab Director: Jozef Medina PhD, Phone: [phone] Aerobic Culture Performing Lab:see note - [facility] LB SEE REPORT - Interactive Digital Media Specialist Id information not found for OBX-specific equity research analyst legend PROF 14(COMP METB) Reviewed date:07/30/2024 09:56:53 PM Interpretation: Performing Lab: Notes/Report: [facility] ,Vaihcs400754-939 mmol/LPotassium4.93.5-5.1 mmol/HMvibxduu52950-632 mmol/LCarbon Pijxbux49.921.0-32.0 mmol/LAnion Gap14.8Hffjqnx45062-698 mg/dLBlood Urea Dwlaprev90.07.0-18.0 mg/dLCreatinine2.700.55-1.02 mg/dLEstimated GFR ( Jmwgjkp61>=60 mL/min/1.73m 2Estimated GFR (Non- Ame17>=60 mL/min/1.73m 2 BUN Creatinine Ratio20.8Mmwitov3.08.5-10.1 mg/dLBilirubin Total0.50.2-1.0 mg/dL Aspartate Amino Oqnnbnmonvy2493-31 U/LAlanine Avmkrhvsdaxsbljg6527-63 U/L Alkaline Dghguzkjann8444-389 U/LTotal Protein6.36.4-8.2 g/dLAlbumin Level2.93.4- 5.0 g/dLGlobulin3.4Albumin Globulin Ratio0.9Performing Lab:see noteML - [facility] LBMAGNESIUM Reviewed date:07/30/2024 09:56:53 PM Interpretation: Performing Lab: Notes/Report: [facility] ,Magnesium1.91.8-2.4 mg/dLPerforming Lab:see noteML - [facility] LB CBC AUTO DIFF Reviewed date:07/30/2024 09:56:53 PM Interpretation: Performing Lab: Notes/Report: [facility] ,White Blood Count6.24.0-11.0 10 3/uLRed Blood Count3.814.20-5.40 10 6/uL Psvulkpoit61.912.0-16.0 g/aKYrhdnfojuc30.336.0-48.0 %Mean Corpuscular Zhhagr68.7 81.0-99.0 fLMean Corpuscular Wvxgqcffym36.626.7-34.0 pgMean Corpuscular HGB Conc 30.929.9-35.2 g/dLRed Cell Distribution Width13.311.0-15.0 %Platelet Efsgz114 150-450 10 3/uLMean Platelet Volume9.79.5-13.5 fLNeutrophils Percent Auto60.8 43.0-75.0 %Lymphocytes Percent Auto23.520.5-60.0 %Monocytes Percent Auto13.31.7- 12.0 %Eosinophils Percent Auto1.50.9-7.0 %Basophils Percent Auto0.60.2-2.0 % Immature Granulocytes Pct Auto0.30.0-0.5 %Neutrophils Absolute Auto3.71.4-6.5 10 3/uLLymphocytes Absolute Auto1.51.2-3.8 10 3/uLMonocytes Absolute Auto0.80.3-0.8 10 3/uLEosinophils Absolute Auto0.10.0-0.7 10 3/uLBasophils Absolute Auto0.00.0- 0.1 10 3/uLImmature Granulocytes Abs Auto0.020.00-0.03 10 3/uLPerforming Lab:see noteML - [facility] LBECG 12 lead Reviewed date:07/30/2024 09:56:53 PM Interpretation: Performing Lab: Notes/Report: Source Facility: [facility]-[address] [place] [address] [place] [address] Electrocardiograph Report Signed Patient: JUSTIN SADLER MR#: [id number] : 1950 Acct:[id number] Age/Sex: 74 / F ADM Date: 07/28/24 Loc: MS 232-[address]: Debbie Arvizu M.D. Ordering Physician: Etienne Arceo Date of Service: 07/28/24 Procedure(s): ECG 12 lead Accession Number(s): [id number] cc: [facility] Test Date: 2024-07-28 Pat Name: JUSTIN SADLER Department: Room: - Gender: Female Chemists: : 1950 Requested By: 1031 Order Number: [id number] Queta MD: LOVE RUBIO M.D. Measurements Intervals [place] Rate: 80 P: 92 LA: 180 QRS: 37 QRSD: 88 T: 27 QT: 402 QTc: 438 Interpretive Statements 02879 Electronic atrial pacemaker 9120 atypical ECG Compared to ECG 01/23/2024 17:12:55 No significant changes Electronically Signed On 07-29-2024 7:49:53 EDT by LOVE RUBIO M.D. Dictated By: LOVE RUBIO Signed By: 07/29/24 0750 DD/ 9590 TD/TT: Slat Twister:Troponin I High Sensitivity Reviewed date:07/30/2024 09:56:53 PM Interpretation: Performing Lab: Notes/Report: [facility] ,Troponin I High Ikwlpsybirv06.04.0-51.3 pg/mL CUT-OFF POINTS HAVE BEEN ESTABLISHED BASED ON THE FOURTH UNIVERSAL DEFINITION OF MYOCARDIAL INFARCTION. THE UPPER REFERENCE LIMIT (URL) OF TROPONIN, DEFINED THE 99TH PERCENTILE OF cTnI DISTRIBUTION IN A REFERENCE POPULATION, HAS BEEN CONFIRMED THE DECISION THRESHOLD FOR [place] DIAGNOSIS. 99TH PERCENTILE = 51.4 PG/ML NOTE: HIGH-SENSITIVITY TROPONIN ASSAY IS NOT INTENDED TO BE USED IN ISOLATION BUT SHOULD BE INTERPRETED IN CONJUNCTION WITH OTHER DIAGNOSTIC AND CLINICAL INFORMATION. Performing Lab:see noteML - [facility] LBPROF CHEM 8 (BAS METB) Reviewed date:07/30/2024 09:56:53 PM Interpretation: Performing Lab: Notes/Report: [facility] ,Fglymf966481-473 mmol/LPotassium4.83.5-5.1 mmol/SFuiwyftw32406-867 mmol/LCarbon Hqhjgqs63.521.0-32.0 mmol/LAnion Gap9.2Goxmsfj11330-795 mg/dLBlood Urea Nitrogen 53.07.0-18.0 mg/dLCreatinine2.930.55-1.02 mg/dLEstimated GFR ( Czdwnzo88 >=60 mL/min/1.73m 2Estimated GFR (Non- Ame16>=60 mL/min/1.73m 2BUN Creatinine Ratio18.1Rjqvcuu6.48.5-10.1 mg/dLPerforming Lab:see noteML - [facility] LBCBC AUTO DIFF Reviewed date:07/30/2024 09:56:53 PM Interpretation: Performing Lab: Notes/Report: [facility] ,White Blood Count7.24.0-11.0 10 3/uLRed Blood Count3.894.20-5.40 10 6/uL Bjkwioerrl62.412.0-16.0 g/kZNlkzinpkqu66.636.0-48.0 %Mean Corpuscular Yirlei32.1 81.0-99.0 fLMean Corpuscular Qygpvpclqz58.326.7-34.0 pgMean Corpuscular HGB Conc 31.129.9-35.2 g/dLRed Cell Distribution Width13.411.0-15.0 %Platelet Sntps294 150-450 10 3/uLMean Platelet Volume9.69.5-13.5 fLNeutrophils Percent Auto66.4 43.0-75.0 %Lymphocytes Percent Auto18.820.5-60.0 %Monocytes Percent Auto12.41.7- 12.0 %Eosinophils Percent Auto1.70.9-7.0 %Basophils Percent Auto0.40.2-2.0 % Immature Granulocytes Pct Auto0.30.0-0.5 %Neutrophils Absolute Auto4.81.4-6.5 10 3/uLLymphocytes Absolute Auto1.41.2-3.8 10 3/uLMonocytes Absolute Auto0.90.3-0.8 10 3/uLEosinophils Absolute Auto0.10.0-0.7 10 3/uLBasophils Absolute Auto0.00.0- 0.1 10 3/uLImmature Granulocytes Abs Auto0.020.00-0.03 10 3/uLPerforming Lab:see noteML - [facility] LBReticulocyte Pct Auto Reviewed date:07/30/2024 09:56:53 PM Interpretation: Performing Lab: Notes/Report: [facility] ,Reticulocyte Pct Auto1.220.60-3.10 %Performing Lab:see noteML - [facility] LBIFE, PE and FLC, Serum Reviewed date:07/30/2024 09:56:53 PM Interpretation: Performing Lab: Notes/Report: [facility] ,Immunoglobulin G, Qn, Uwock8189467-1967 mg/dLImmunoglobulin A, Qn, Bxcna88649- 422 mg/dLImmunoglobulin M, Qn, Djeyu7237-944 mg/dLProtein, Total6.26.0-8.5 g/dL Albumin3.22.9-4.4 g/lDXtcob-9-Tcqmkait9.30.0-0.4 g/nUHbqrw-4-Uvacwbal4.90.4-1.0 g/dLBeta Globulin1.00.7-1.3 g/dLGamma Globulin0.90.4-1.8 g/dLM-SpikeComment:Not Observed g/dLSPE shows an asymmetrical gamma.Globulin, Total3.02.2-3.9 g/dLA/G Ratio1.10.7-1.7Immunofixation Result, SerumComment:. Presence of monoclonal protein is unclear at this time. Suggest repeat in 3 to 6 months if clinically indicated. Please note:Comment. Protein electrophoresis scan will follow via computer, mail, or information coder delivery. Free [place] Lt Chains,S42.03.3-19.4 mg/LFree Lambda Lt Chains,S26.65.7-26.3 mg/L [place]/Lambda Ratio,S1.580.26-1.65 Performed at: - [facility] [address] [id number] Private Duty Nurse: Jozef Medina PhD, Phone: [phone] Performing Lab:see noteLC - [facility] LBErythrocyte Sedimentation Rate Reviewed date:07/30/2024 09:56:53 PM Interpretation: Performing Lab: Notes/Report: [facility] ,Erythrocyte Sedimentation Rate96<=30 mm/hrPerforming Lab:see noteML - [facility] LBPROF 14(COMP METB) Reviewed date:07/30/2024 09:56:53 PM Interpretation: Performing Lab: Notes/Report: [facility] ,Yeclfo511691-109 mmol/LPotassium5.13.5-5.1 mmol/EDozmodaj67556-465 mmol/LCarbon Mrmirvh56.921.0-32.0 mmol/LAnion Gap9.3Qmhhxid9972-584 mg/dLBlood Urea Nitrogen 41.07.0-18.0 mg/dLCreatinine2.450.55-1.02 mg/dLEstimated GFR ( Lqjxiyr00 >=60 mL/min/1.73m 2Estimated GFR (Non- Ame19>=60 mL/min/1.73m 2BUN Creatinine Ratio16.5Eyyhpcb3.38.5-10.1 mg/dLBilirubin Total0.40.2-1.0 mg/dL Aspartate Amino Unppzmznccb721-31 U/LAlanine Yhynvooijomqmphn7891-64 U/LAlkaline Bvvbwdvyxfn5365-983 U/LTotal Protein6.86.4-8.2 g/dLAlbumin Level3.13.4-5.0 g/dL Globulin3.7Albumin Globulin Ratio0.8Performing Lab:see noteML - [facility] LBLDH Reviewed date:07/30/2024 09:56:53 PM Interpretation: Performing Lab: Notes/Report: [facility] ,Lactate Kukwhlwulvopb81088-602 U/LPerforming Lab:see noteML - [facility] LBCRP Reviewed date:07/30/2024 09:56:53 PM Interpretation: Performing Lab: Notes/Report: [facility] ,C Reactive Protein<0.50<=0.50 mg/dLPerforming Lab:see noteML - [facility] LBCBC AUTO DIFF Reviewed date:07/30/2024 09:56:53 PM Interpretation: Performing Lab: Notes/Report: [facility] ,White Blood Count6.54.0-11.0 10 3/uLRed Blood Count4.104.20-5.40 10 6/uL Hglieimgwa70.912.0-16.0 g/ySLzpxnhmfpl29.836.0-48.0 %Mean Corpuscular Imqhhl02.6 81.0-99.0 fLMean Corpuscular Vmhpkyxvcq28.026.7-34.0 pgMean Corpuscular HGB Conc 30.729.9-35.2 g/dLRed Cell Distribution Width13.211.0-15.0 %Platelet Hredx070 150-450 10 3/uLMean Platelet Volume9.99.5-13.5 fLNeutrophils Percent Auto63.7 43.0-75.0 %Lymphocytes Percent Auto21.620.5-60.0 %Monocytes Percent Auto11.91.7- 12.0 %Eosinophils Percent Auto2.00.9-7.0 %Basophils Percent Auto0.50.2-2.0 % Immature Granulocytes Pct Auto0.30.0-0.5 %Neutrophils Absolute Auto4.11.4-6.5 10 3/uLLymphocytes Absolute Auto1.41.2-3.8 10 3/uLMonocytes Absolute Auto0.80.3-0.8 10 3/uLEosinophils Absolute Auto0.10.0-0.7 10 3/uLBasophils Absolute Auto0.00.0- 0.1 10 3/uLImmature Granulocytes Abs Auto0.020.00-0.03 10 3/uLPerforming Lab:see note - [facility] LBOccult Blood* Reviewed date:06/22/2024 08:14:52 PM Interpretation: Performing Lab: Notes/Report: [facility] ,Occult BloodPositivePerforming Lab:see noteV[facility] Health Administration LBURINE T PROTEIN CREAT RATIO Reviewed date:06/20/2024 03:31:27 PM Interpretation: Performing Lab: Notes/Report: [facility] ,Total Protein Urine Rrkkrv73.4<=11.9 mg/dLCreatinine Urine Tjyklx923.9720.00- 300.00 mg/dLProtein Creatinine Ratio Urine0.24Performing Lab:see noteVeter[facility] Health Administration LBURIC ACID SERUM Reviewed date:06/20/2024 03:31:27 PM Interpretation: Performing Lab: Notes/Report: [facility] ,Uric Acid8.02.6-6.0 mg/dLPerforming Lab:see note - [facility] LBUA RANDOM W or MICROSCOPIC Reviewed date:06/20/2024 03:31:27 PM Interpretation: Performing Lab: Notes/Report: [facility] ,Color UrineYELLOWYELLOWClarity UrineCLEARCLEARSpecific [place] Urine1.020 1.005-1.025pH Urine6.05.0-9.0Protein UrineNEGATIVENEG/TRACE mg/dLGlucose Urine UANEGATIVENEGATIVE mg/dLBilirubin UrineNEGATIVENEGATIVEKetones UrineNEGATIVE NEGATIVE mg/dLBlood UrineNEGATIVENEGATIVENitrite UrineNEGATIVENEGATIVE Urobilinogen Urine0.20.2-1.0 EU/dLLeukocyte Esterase UrineTRACENEGATIVEWBC Urine 2-5NONE SEEN #/HPFRBC Urine0-20-2 #/HPFBacteria UrineSMALLNONE SEEN #/HPFMucus UrineTRACENONE SEENSquamous Epithelial Cell UrineMODERATENONE/RARE #/LPFCrystals Seen?None SeenNone Seen #/HPFCast Seen?NONE SEENNONE SEEN #/LPFUrine Culture IndicatedNOPerforming Lab:see noteML - [facility] LBTSH Reviewed date:06/20/2024 03:31:27 PM Interpretation: Performing Lab: Notes/Report: [facility] ,Thyroid Stimulating Hormone0.0080.358-3.740 uIU/mLPerforming Lab:see noteML - [facility] LBT4 Reviewed date:06/20/2024 03:31:27 PM Interpretation: Performing Lab: Notes/Report: [facility] ,T4 Thyroxine8.104.80-13.90 ug/dLPerforming Lab:see noteML - [facility] LBPROF 14(COMP METB) Reviewed date:06/20/2024 03:31:27 PM Interpretation: Performing Lab: Notes/Report: [facility] ,Qfzjnr152864-795 mmol/LPotassium4.83.5-5.1 mmol/UPxipvcnb39041-913 mmol/LCarbon Rbkltjr05.221.0-32.0 mmol/LAnion Gap12.4Dtihthe0604-677 mg/dLBlood Urea Nitrogen 38.07.0-18.0 mg/dLCreatinine2.100.55-1.02 mg/dLEstimated GFR ( Jygrghc77 >=60 mL/min/1.73m 2Estimated GFR (Non- Ame23>=60 mL/min/1.73m 2BUN Creatinine Ratio18.0Kavlkfk4.08.5-10.1 mg/dLBilirubin Total0.50.2-1.0 mg/dL Aspartate Amino Dntsfsrcavj9929-00 U/LAlanine Habvmnjnirsihvjy9449-04 U/L Alkaline Zlizdlwbugt9658-425 U/LTotal Protein6.96.4-8.2 g/dLAlbumin Level3.03.4- 5.0 g/dLGlobulin3.9Albumin Globulin Ratio0.8Performing Lab:see noteML - [facility] LBPHOSPHORUS Reviewed date:06/20/2024 03:31:27 PM Interpretation: Performing Lab: Notes/Report: [facility] ,Phosphorus3.72.6-4.7 mg/dLPerforming Lab:see note - [facility] LB MAGNESIUM Reviewed date:06/20/2024 03:31:27 PM Interpretation: Performing Lab: Notes/Report: [facility] ,Magnesium1.61.8-2.4 mg/dLPerforming Lab:see noteML - [facility] LB LIPID PROFILE Reviewed date:06/20/2024 03:31:27 PM Interpretation: Performing Lab: Notes/Report: [facility] ,Llwshatcrzenu43<=150 mg/gCAammcgpdeco175<=200 mg/dLHDL Cqvzarbobom2515-00 mg/dL > or =60 mg/dl - LOW CARDIOVASCULAR RISK <40 mg/dl - HIGH CARDIOVASCULAR RISK LDL Cholesterol Aplixxjfcx24.0 <100 mg/dl OPTIMAL 100-129 mg/dl NEAR OR ABOVE OPTIMAL 130-159 mg/dl BORDERLINE HIGH 160-189 mg/dl HIGH >190 mg/dl VERY HIGH VLDL JNDXUJCQFQY25.0Chol HDL Ratio2.8 3.3 - 4.4 LOW RISK 4.4 - 7.1 AVERAGE RISK 7.1 - 11.0 MODERATE RISK >11.0 HIGH RISK Performing Lab:see noteML - [facility] LBIRON AND TIBC Reviewed date:06/20/2024 03:31:27 PM Interpretation: Performing Lab: Notes/Report: [facility] ,Iron51.050.0-170.0 ug/dLTotal Iron Binding Rghuaccv758.0250.0-450.0 ug/dL Percent Iron Uwcstvimou38.2Performing Lab:see noteML - [facility] LB GLYCOHEMOGLOBIN A1C Reviewed date:06/20/2024 03:31:27 PM Interpretation: Performing Lab: Notes/Report: [facility] ,Glycohemoglobin A1C5.24.5-6.2 % ADA RECOMMENDED LIMIT 4.0 - 6.0 ADA THERAPEUTIC TARGET < 7.0 ACTION SUGGESTED > 7.0 Estimated Average Raxnfai557Viiqahxlbr Lab:see noteML - [facility] LB FREE T3 Reviewed date:06/20/2024 03:31:27 PM Interpretation: Performing Lab: Notes/Report: [facility] ,Free T32.572.18-3.98 pg/mLPerforming Lab:see noteML - [facility] LB CBC AUTO DIFF Reviewed date:06/20/2024 03:31:27 PM Interpretation: Performing Lab: Notes/Report: [facility] ,White Blood Count7.54.0-11.0 10 3/uLRed Blood Count3.864.20-5.40 10 6/uL Pzgfirczrr00.112.0-16.0 g/xTKnoiobchdc60.136.0-48.0 %Mean Corpuscular Xzsttc20.5 81.0-99.0 fLMean Corpuscular Ksowgdkclz50.826.7-34.0 pgMean Corpuscular HGB Conc 30.729.9-35.2 g/dLRed Cell Distribution Width13.911.0-15.0 %Platelet Ytkkk089 150-450 10 3/uLMean Platelet Volume9.59.5-13.5 fLNeutrophils Percent Auto73.7 43.0-75.0 %Lymphocytes Percent Auto15.420.5-60.0 %Monocytes Percent Auto9.21.7- 12.0 %Eosinophils Percent Auto0.90.9-7.0 %Basophils Percent Auto0.40.2-2.0 % Immature Granulocytes Pct Auto0.40.0-0.5 %Neutrophils Absolute Auto5.51.4-6.5 10 3/uLLymphocytes Absolute Auto1.21.2-3.8 10 3/uLMonocytes Absolute Auto0.70.3-0.8 10 3/uLEosinophils Absolute Auto0.10.0-0.7 10 3/uLBasophils Absolute Auto0.00.0- 0.1 10 3/uLImmature Granulocytes Abs Auto0.030.00-0.03 10 3/uLPerforming Lab:see noteML - [facility] LBXR sinus min 3V Reviewed date:05/09/2024 04:10:11 PM Interpretation: Performing Lab: Notes/Report: Source Facility: [place] [address] [address] [address] XRay Report Signed Patient: JUSTIN SADLER MR#: [id number] : 1950 Acct:[id number] Age/Sex: 74 / F ADM Date: 05/09/24 Loc: RAD Attending Dr: Lakshmi Mathews M.D. Ordering Physician: Lakshmi Mathews M.D. Date of Service: 05/09/24 Procedure(s): XR sinus min 3V Accession Number(s): [id number] cc: Debbie Arvizu M.D.; Lakshmi Mathews M.D. The [place] [address] Patient Name: JUSTIN SADLER MRN: [id number] date: 1950 Sex: F Assigned Patient Location: [facility] Current Patient Location: [facility] Accession/Order Number: [id number] Exam Date: 05/09/2024 12:47 Report Date: 05/09/2024 [...] Kelly Lao M.D.05/09/2024 12:54 PM Dictation Location: [place] [address] Electronically authenticated by: [id number] Y Date: 05/09/2024 12:54 Dictated By: Kelly Lao M.D. Signed By: 05/09/24 1257 DD/ 1254 TD/TT: Slat Twister:JONNY CLEMONS RT 2V Reviewed date:03/11/2024 08:36:26 PM Interpretation: Performing Lab: Notes/Report: Source Facility: [place] [address] [place] [address] XRay Report Signed Patient: JUSTIN SADLER MR#: [id number] : 1950 Acct:[id number] Age/Sex: 74 / F ADM Date: 03/10/24 Loc: RAD Attending Dr: Debbie Arvizu M.D. Ordering Physician: Debbie Arvizu M.D. Date of Service: 03/10/24 Procedure(s): XR foot RT 2V Accession Number(s): [id number] cc: Debbie Arvizu M.D. [place] [address] Patient Name: JUSTIN SADLER MRN: [id number] date: 1950 Sex: F Assigned Patient Location: [facility] Current Patient Location: [facility] Accession/Order Number: [id number] Exam Date: 03/10/2024 14:45 Report Date: 03/10/2024 [...] Signed By: 03/10/24 1522 DD/ 1520 TD/TT: Slat Twister:CT int auditory canals w/o con Reviewed date:08/15/2024 04:17:45 PM Interpretation: Performing Lab: Notes/Report: Source Facility: [place] [address] CT Scan Report Signed Patient: JUSTIN SADLER MR#: [id number] : 1950 Acct:[id number] Age/Sex: 74 / F ADM Date: 08/15/24 Loc: CT Attending Dr: Lakshmi Mathews M.D. Ordering Physician: Lakshmi Mathews M.D. Date of Service: 08/15/24 Procedure(s): CT int auditory canals w/o con Accession Number(s): [id number] cc: Debbie Arvizu M.D. [place] [address] Patient Name: JUSTIN SADLER MRN: [id number] date: 1950 Sex: F Assigned Patient Location: CT Current Patient Location: CT Accession/Order Number: [id number] Exam Date: 08/15/2024 14:47 Report Date: 08/15/2024 [...] Gutierrez M.D. 08/15/2024 2:51 PM Dictation Location: [place] [address] Electronically authenticated by: [id number] Date: 08/15/2024 14:51 Dictated By: Victor Manuel Gutierrez M.D. Signed By: 08/15/24 1454 DD/ 1451 TD/TT: Slat Twister:TOY GARCIA and FLC, Serum Reviewed date:06/22/2024 08:14:52 PM Interpretation: Performing Lab: Notes/Report: [facility] ,Immunoglobulin G, Qn, [id number] mg/dLImmunoglobulin A, Qn, Haxsh22041- 422 mg/dLImmunoglobulin M, Qn, Nfccf4616-852 mg/dLProtein, Total6.46.0-8.5 g/dL Albumin2.92.9-4.4 g/tISaoum-4-Xqympltw5.30.0-0.4 g/lQEbkeq-2-Zwakcbcq5.00.4-1.0 g/dLBeta Globulin1.10.7-1.3 g/dLGamma Globulin1.00.4-1.8 g/dLM-SpikeComment:Not Observed g/dLSPE shows an asymmetrical gamma.Globulin, Total3.52.2-3.9 g/dLA/G Ratio0.90.7-1.7Immunofixation Result, SerumComment:. Presence of monoclonal protein is unclear at this time. Suggest repeat in 3 to 6 months if clinically indicated. Please note:Comment. Protein electrophoresis scan will follow via computer, mail, or information coder delivery. Free [place] Lt Chains,S51.53.3-19.4 mg/LFree [place]ambda Lt Chains,S30.75.7-26.3 mg/L [place]/Lambda Ratio,S1.680.26-1.65 Performed at: - [address] [id number] Private Duty Nurse: Jozef Medina PhD, Phone: [employer] Performing Lab:see note - [facility] LBPTH, Intact Reviewed date:06/21/2024 12:49:25 PM Interpretation: Performing Lab: Notes/Report: [facility] ,PTH, Ptbboh4221-48 pg/mL Performed at: [facility] - [facility] [id number] Private Duty Nurse: Jozef Medina PhD, Phone: [phone] Performing Lab:see noteLC - [facility] LB Reason For Referral Diagnosis 1 Bladder prolapse, fe male, acquired (N81.10) Referral Organization [facility] Referring Provider First Name Dontrell Referring Provider Last Name [facility] Referring Provider [facility] Referred Provider Ladonna Malagon Referred Provider Specialty Urology Referral Priority Routine Diagnosis 1 Encounter for examin ation of ears and hearing without abnormal findings (Z01.10) Referral Organization [facility] Referring Provider First Name Dontrell Referring Provider Last Name [facility] Referring Provider [facility] Referred Provider Lakshmi Mathews Referred Provider Specialty Otolaryngolo gy Referral Priority Routine Reason Patient would like Genia muhammad office please! Diagnosis 1 Hyperproteinemia (E8 8.09) Referral Organization [facility] Referring Provider First Name Dontrell Referring Provider Last Name [facility] Referring Provider [facility] Referred Organization [facility] Referred Provider Beatriz Campos Referred Address [address],[place],[address],[place] Referred Provider Specialty Hematology/O ncology Referral Priority Routine Diagnosis 1 Rectal bleeding (K62 .5) Referral Organization [facility] Referring Provider First Name Dontrell Referring Provider Last Name Nolberto Referring Provider [facility] Referred Provider Rigoberto Tam Referred Provider Specialty Gastroentero logy Referral Priority Routine Diagnosis 1 Open wound of leg, l eft, subsequent encounter (V20.810F) Referral Organization [facility] Referring Provider First Name Dontrell Referring Provider Last Name Nolberto Referring Provider [facility] Referred Provider Isael Mart Referred Provider [...] Unknown 12/17/2020 Administered SARS-COV-2 (COVID 19 Pfizer 30mcg/0.3mL)Zmdipgq9101/07/2021dministered Social History Tobacco Use: Social History Observation Description Date Details (start date - stop date) Former Smoker NA - NA Tobacco Control (Standard) Question Answer Notes Tobacco use: Former smoker How long has it been since you last smoked?Greater than 10 yearsAdditional Findings: Tobacco knm-yyuzKb-eckg heavy cigarette smoker (40+/day)AUDIT-C (Standard) Question Answer Notes Did you have a drink containing alcohol in the p ast year? No Sfvzzd2WyvdkjrjfwpfazSqdwsgyg Problems Problem Type SNOMED Code ICD Code Onset Dates Problem Status W/U Status Risk Notes Problem Hyperkalemia (47236297) Hyperkalemia (E87 .5) ActiveconfirmedProblemAngina co-occurrent and due to coronary arteriosclerosis (disorder) (56108197104754202)Atherosclerotic heart disease of [place] coronary artery with other forms of angina pectoris (I25.118)ActiveconfirmedProblemSick sinus syndrome (40646580)Sick sinus syndrome (I49.5)ActiveconfirmedProblemNon- pressure chronic ulcer of other part of left lower leg with fat layer exposed (L97.822)ActiveconfirmedProblemChronic kidney disease stage 3 (disorder) (856805820)Chronic kidney disease, stage 3 (moderate) (N18.3)Activeconfirmed ProblemBradycardia (78515075)Bradycardia, unspecified (R00.1)Activeconfirmed ProblemMorbid obesity (393625070)Morbid obesity (E66.01)ActiveconfirmedProblem COPD - Chronic obstructive pulmonary disease (55012783)COPD (chronic obstructive pulmonary disease) (J44.9)ActiveconfirmedProblemHypothyroidism (19254613) Hypothyroidism (E03.9)ActiveconfirmedProblemCoronary artery disease (07389199) CAD (coronary artery disease) (I25.10)ActiveconfirmedProblemSpinal stenosis (80947612)Spinal stenosis (M48.00)ActiveconfirmedProblemChronic kidney disease (777010917)CKD (chronic kidney disease) (N18.9)ActiveconfirmedProblemCardiac pacemaker in situ (620501824)Pacemaker (Z95.0)ActiveconfirmedProblemDizziness (805690043)Dizziness (R42)ActiveconfirmedProblemTransient ischemic attack (307456326)TIA (transient ischemic attack) (G45.9)ActiveconfirmedProblemMigraine (27682557)Migraine (G43.909)ActiveconfirmedProblemCOPD - Chronic obstructive pulmonary disease (51603304)Chronic obstructive pulmonary disease, unspecified COPD type (J44.9)ActiveconfirmedProblemPain in right foot (824811536479329)Right foot pain (M79.671)ActiveconfirmedProblemSerous otitis media (31131720)Serous otitis media (H65.90)ActiveconfirmedProblemCellulitis (365361700)Cellulitis (L03.90)ActiveconfirmedProblemDiverticulitis (02714780)Diverticulitis (K57.92) ActiveconfirmedProblemHyperproteinemia (21381874)Hyperproteinemia (E88.09)Active confirmedProblemTubular adenoma (963064812)Tubular adenoma (D36.9)Active confirmedProblemLumbar spondylosis (626723745)Lumbar spondylosis (M47.816)Active confirmedProblemOcular migraine (24147764)Ocular migraine (G43.109)Active confirmedProblemMultiple pulmonary nodules (567751925)Multiple pulmonary nodules (R91.8)ActiveconfirmedProblemMidline cystocele (032450689)Bladder prolapse, female, acquired (N81.10)ActiveconfirmedProblemLumbosacral spondylosis (039393844)Lumbosacral spondylosis (M47.817)ActiveconfirmedProblemAnemia of chronic renal failure (15263269)Anemia due to stage 3 chronic kidney disease (D63.1)ActiveconfirmedProblemChronic venous hypertension with ulcer and inflammation involving left side (I87.332)ActiveconfirmedProblemEssential hypertension (63799120)BP (high blood pressure) (I10)ActiveconfirmedProblemPure hypercholesterolemia (425591734)Pure hypercholesterolemia, unspecified (E78.00) ActiveconfirmedProblemChronic venous hypertension with ulcer and inflammation, left (I87.332)ActiveconfirmedProblemSecondary pulmonary hypertension (15754745) Other secondary pulmonary hypertension (I27.29)ActiveconfirmedProblemPulmonary hypertension (59689820)Pulmonary hypertension (I27.20)ActiveconfirmedProblem Neurogenic claudication (368749075)Spinal stenosis, lumbar region with neurogenic claudication (M48.062)ActiveconfirmedProblemNon-pressure chronic ulcer of other part of left lower leg with muscle involvement without evidenceof necrosis (L97.825)ActiveconfirmedProblemMalnutrition of mild degree ([place]: 75% to less than 90% of standard weight) (85108223)Mild protein malnutrition (E44.1) ActiveconfirmedProblemCOVID-19 (403090254)COVID-19 (U07.1)ActiveconfirmedProblem Body mass index 40+ - severely obese (323355007)Body mass index [BMI] 45.0-49.9, adult (Z68.42)ActiveconfirmedProblemBody mass index 40+ - morbidly obese (806511810)Body mass index [BMI] 50.0-59.9, adult (Z68.43)ActiveconfirmedProblem Chronic kidney disease stage 3 (disorder) (430233865)Chronic kidney disease (CKD), stage III (moderate) (N18.30)ActiveconfirmedProblemVentricular tachycardia (disorder) (09554521)Other ventricular tachycardia (I47.29)Active confirmedProblemSupraventricular tachycardia (disorder) (1726536)Other supraventricular tachycardia (I47.19)Activeconfirmed Vital Signs Heart Rate 77 /min 09/26/2024 Ntusvgbbpxa18.0 degrees Ofwrrrygse92/15/2025Respiratory Rate80 /min09/26/2024 Ywjqwxfe66 %09/26/2024lood pressure pnojhfzps863 mm Hg01/24/20252484Fegiae52 in 01/24/2025lood pressure fafjsymm252 mm Hg01/24/20259263Kdwcxm720.4 lbs103/26/2024MI 46.99 kg/m201/24/2025 Encounters Encounter Location Date Provider Diagnosis [facility] [address] [place] [address] 08/08/2024 Dontrell Hoy Cellulitis L03.90 [facility] [address] [place] [address] 08/09/2024 Dontrell Hoy Cellulitis L03.90 [facility] [address] [place] [address] 09/04/2024 Dontrell Hoy Cellulitis L03.90 [facility] [address] [place] [address] 08/03/2024 Dontrell Hoy Migraine G43.909 [facility] [address] [place] [address] 03/10/2024 Dontrell Hoy Right foot pain M79.671 [facility] [address] [place] [address] 04/17/2024 Dontrell Hoy Serous otitis media H65.90 [address] [place] [address] 01/24/2025 Dontrell Hoy CAD (coronary artery disease) I25.10 and Weight loss, abnormal R63.4 [facility] [place] [address] [place] [address] 09/26/2024 Donal Salmeron Multiple pulmonary nodules R91.8 ; COPD (chronic obstructive pulmonary disease) J44.9 ; History of tobacco abuse Z87.891 ; Morbid obesity E66.01 and Body mass index [BMI] 45.0-49.9, adult Z68.42 [facility] [address] [place] [address] 07/25/2024 [facility] [address] [place] [address]/10/2025 [facility] [address] [facility] [place] [address]/poorva [facility] [place] [address]/Doug HoyAcute bronchitis, unspecified organism J20.9[facility] [place] [address]/oug HoyBladder prolapse, female, acquired N81.10[facility] [place] [address]/ Dontrell [facility] [place] [address]/Doug HoyCOPD (chronic obstructive pulmonary disease) J44.9 and Right foot pain M79.671[facility] [facility] [place] [address]/12/2024Doug HoyEncounter for examination of ears and hearing without abnormal findings Z01.10[facility] [place] [address]/Doug HoyOther fatigue R53.83 ; Other abnormal glucose R73.09 ; Pure hypercholesterolemia, unspecified E78.00 and Encounter for screening for malignant neoplasm of colon Z12.11[facility] [place] [address]/ [facility] [place] [address]/10/2024Doug HoyHypothyroidism E03.9[facility] [address] [place] [address]/12/2024Doug HoyRectal bleeding K62.5[facility] [place] [address] 06/22/2024Doug HoyHyperproteinemia E88.09[address] [place] [address]/04/2024[facility]oyBVG[facility] [facility] [place] [address]/Doug HoyContusion of head S00.93XA and Contusion of leg, left S80.12XA[facility] [address] [facility] [place] [address]/05/2024Doug [facility] [facility] [place] [address]/Doug Hoy [facility] [facility] [place] [address] 09/04/2024Doug HoyOpen wound of leg, left, subsequent encounter S81.802D[facility] [facility] [place] [address]/ Dontrell Arvizu Assessments Encounter Date Diagnosis (ICD [...] schedule the testing. With the closing of [facility] this week, I explained to the patient that I would be unable toF/U immediately with the patient if she were to get the LDCT done at this time. I provided her withoptions: -Either I or her PCP can order the LDCT and refer her to a different deckhand if something very concerning shows -Wait several [...] vaporizer to help keep the drainage moist. Bnrv-vez-vmciuzl Nasal Saline may help the stuffy and runny nose. Use Ibuprofen and or Tylenol as needed for fever, chills, body aches or pain. Children 5 years old should not be given hmpc-osa-iuobnny cough and cold medications such as guaifenesin and dextromethorphan. If you're over age 5, you may try xwug-rlr-ocluauv cold medications such as guaifenesin and dextromethorphan, [...] go to the emergency room or call [phone] (ICD-10 - G43.909)08/08/2024ellulitis (ICD-10 - L03.90)5Cellulitis (ICD-10 - L03.90)5Cellulitis (ICD-10 - L03.90)5CAD (coronary artery disease) (ICD-10 - I25.10)Recommend taking hte aspiorin QOD103/26/2024 Weight loss, abnormal (ICD-10 - R63.4)02/21/2024ladder prolapse, [...] End Date [place] [address] [place] [address] [id number] Devan Sadler - patient is the oadafrt02 2013[employer] MEDICARE SUPPLEMENTPO [address] [address] [place] [id number], LouiseSelf - patient is the hunlbms40 2018 Medications Administered Medication Instructions Date of [...] Surgery Date(Month/Year) hysterectomy cataract-lens implantsRight Foot SurgeryBack Njojcpv1705/11/2021PM Implant- Qxwgrevmw45/31/2023Colonoscopy & EGD - Syifjs52/2023Lumbar/Sacral Injections- Dr. Mensah05/31/20239075gqpdkbhsewy0/7/25Rt Myringotomy, t-tube placement, nasal endoscopy- Dr Mathews07/06/20247759bratiioegml14/10/25
--- OUTSIDE RECORDS SUMMARY | 2025-02-12 06:47 | XMS_ITS | Clinical Summary ---
Author Organization [facility] Address [address] [place] [address] Care Team Providers Care Welfare Specialist Name Role Phone Jeremiah Arvizu MD Primary Care Provider [phone] Allergies Active AllergyReactionsCriticalityNoted DateCommentsFluticasoneHeadache 10/24/2024 Other Reaction(s): Unknown DegjwgesviqJmlzcc12/16/2022 Other Reaction(s): Other Yeast infection Medications MedicationSigDispense [...] TAKE TWO TABLETS BY MOUTH IN THE BPATCEC10/11/2025Active carvedilol (Coreg) 12.5 MG tablet TAKE 1 [...] (coronary artery disease)05/09/2024hronic obstructive pulmonary disease 05/09/2024Former vxhsth8005/09/2024History of colon hneoar9605/09/2024History of tobacco abuse05/09/20246352Yntpqdkuigdyopairdmz11/25/9289Bvoaiffffwwwyp64/25/2025 Kidney rtsjue9805/09/2024Morbid flnklxi3105/09/2024Multiple pulmonary nodules 05/09/2024Status post lumbar spine /25/2025Stress incontinence, xqogjm6505/09/2024Stage 3a chronic kidney ektcpfi3501/31/2024KD (chronic kidney disease) stage 4, GFR 15-29 ml/min01/26/20246365Osehxfutwgeh43/13/2024Secondary axhhwgkjrudtwbrzudg32/13/2024Tachy-rhonda fuojrwdk29/24/2023Symptomatic nxoiimyoczw11/20/2023Other secondary pulmonary xrbmelyfpjgy57/03/2023 Nonsustained paroxysmal ventricular swvsnnyfjrg99/18/2023Obstructive sleep apnea tpikcdww64/21/2023 Overview (05/05/2024): SOBIA=17.7 events/hour; Pranav SaO2=76%; Svbkwa=668.0 lbs; BMI=52.7 kg/m2, Home Sleep Apnea Testing on09/25/2022 at [facility] [place] (ventricular tachycardia)04/29/2022 Overview (05/05/2024): Added automatically from request for surgery [id number] Clinical trial exam04/23/2022 Overview (05/05/2024): Added automatically from request for surgery [id number] A-fib04/21/2022Lower abdominal pain01/30/2022pinal stenosis of lumbar region with neurogenic tphqngghsvyd66/18/2022pondylosis of lumbosacral region without myelopathy or njyhcluokazhl70/18/2022Essential rdlptlezqkxl91/12/2020Chest pain 07/27/20162437Hznjqib76/15/6685Cnvts97/15/0744Vtpyrka78/15/2017Lightheadedness 07/27/2016 Encounters DateTypeDepartmentCare IoniLkjwzqloeol15/23/2025 10:50 AM EDTOffice Visit [facility] [address] [facility] [address] [place] [address] Lakshmi Viramontes MD Acute URI (Primary Dx); ETD (Eustachian tube dysfunction), right12/05/2024amboo flowsheet [facility] [address] [place] [address] [place] [address] Lakshmi Viramontes MD 12/05/2024Travelfrom Last 3 Months Immunizations ImmunizationAdministration DatesNext ZlzDCHU-GrQ-4, Tpykuermyrv62/23/2021 Family History Medical HistoryRelationNameCommentsCancerFatherCancerMotherRelationNameStatus CommentsFatherDeceasedMotherDeceased Social History Tobacco UseTypesPacks/DayYears UsedDateSmoking Tobacco: NeverSmokeless Tobacco: Never Tobacco Cessation:Counseling Given: Not Answered Alcohol UseStandard Drinks/WeekCommentsNot Currently0 (1 standard drink = 0.6 oz pure alcohol)CommentsUnknownSex and Gender InformationValueDate Recorded Sex Assigned at BirthNot on fileLegal EckBojlzd95/15/2023 6:41 PM EDTGender IdentityNot on fileSexual OrientationNot on file Last Filed Vital Signs Vital SignReadingTime TakenCommentsBlood Yhgaknlx486/9412/05/2024 10:45 AM EDT Qajkp256912/05/2024 10:45 AM EDTTemperature--Respiratory Rate--Oxygen Saturation-- Inhaled Oxygen Concentration--Aiyoiy643 kg (275 lb)12/05/2024 10:45 AM EDTHeight 162.6 cm (5' 4 )12/05/2024 10:45 AM EDTBody Mass Index47. 10:45 AM EDT Plan of Treatment DateTypeDepartmentCare Team (Latest Contact Info)Etsuvzmfgit64/30/2026 10:20 AM EDTOffice Visit [facility] [address] [facility] [address] [place] [address] Lakshmi Viramontes MD [address] [facility] [address] [place] [address] Health MaintenanceDue DateLast DoneCommentsCT Clfbxlujcnss1951FIT-DNA 1950FIT1950FOBT1950 7688Imssrebvjjkud26/08/6291Zeievhjlo89/08/1991 Pneumococcal Vaccine: 65+ Years (1 of 1 - PCV)2001COVID-19 Vaccine ( season)/, 01/04/2021, 12/17/2020Influenza Vaccine (#1)11/13/20246344Mxsldxrsxue77, 02/09/2023, 07/06/2018Colorectal Cancer Coniqbwcd99/28/2033 Medical Devices ImplantedTypeAreaManufacturerDevice IdentifierShelf Expiration DateModel / Serial / LotCardiac PacemakerCardiac PacemakerHeart Insurance * Guarantor: Vero Sadler TypeRelation to PatientDate of BirthPhone Billing AddressPersonal/OztoiiHejd1950 [address] [address] Care Teams Team MemberRelationshipSpecialtyStart DateEnd Date Jeremiah Arvizu MD [address] [place] [address] PCP - GeneralFamily Medicine08/02/24
--- OUTSIDE RECORDS SUMMARY | 2025-02-12 06:47 | XMS_ITS | Clinical Summary ---
[facility] Address [address] [place] [address] Care Team Providers Care Chamber Walker Name Role Phone Jeremiah Arvizu MD Primary Care Provider [phone] Social History Tobacco UseTypesPacks/DayYears UsedDateSmoking Tobacco: Never Assessed CommentsUnknownSex and Gender InformationValueDate RecordedSex Assigned at Not on fileLegal AnqPwwvbc52/14/2017 1:53 PM EDTGender IdentityFemaleSexual OrientationNot on file Plan of Treatment Health MaintenanceDue DateLast DoneCommentsDEXA SCAN NXDHXOHKFI1950 HEPATITIS C VIRUS QVTGWEYNK77/08/5985UWGMJTG1950TDAP (ADULT)1970 CERVICAL CANCER SCREENING NDTWYUMJIH69/08/1972LIPID MQZYVCRRQ44/08/1991MAMMOGRAM SCREENING OVNILYMXLW74/08/1991COLORECTAL CANCER SCREENING MJQRMVNIAT54/08/1996 PNEUMOCOCCAL VACCINE SERIES (1 of 1 - PCV)2001ZOSTER (SHINGLES) VACCINE (1 of 2)2001COVID-19 VACCINE ( - 2024- season)2024INFLUENZA VACCINE (#1)2024RSV VACCINE (1 - 1-dose 75+ series)2026HEP B VACCINEAged Out No longer eligible based on patient's age to complete this topic Insurance Care Teams Team MemberRelationshipSpecialtyStart DateEnd Date Jeremiah Arvizu MD PCP - GeneralFamily Medicine06/26/16
--- OUTSIDE RECORDS SUMMARY | 2025-02-12 06:47 | XMS_ITS | Encounter Summary ---
Author Organization [facility] Address [address] [place] [address] Care Team Providers Care Time Clerk Name Role Phone Jeremiah Arvizu MD Primary Care Provider [phone] Reason for Referral * Imaging (Routine) - Pending ReviewSpecialtyDiagnoses / ProceduresReferred By ContactReferred To ContactCardiology Diagnoses Elevated erythrocyte sedimentation rate Procedures Transthoracic echo (TTE) complete Tato Salcido MD [address] [place] [address] Phone: tel: fax: Referral IDStatusReasonStart DateExpiration DateVisits RequestedVisits [id number] Review Perform Procedure 51 Encounter Details DateTypeDepartmentCare Team (Latest Contact Info)Kjqefeexvva48/19/2025Orders Only [facility] [address] [place] [address] Nevaeh Curiel MA Elevated erythrocyte sedimentation rate [...] heating?Not hard at all01/05/2023HQ-2AnswerDate RecordedPatient Health Questionnaire-2 Obzqj856UT Safety & Environment AnswerDate RecordedWithin the last [...] 01/05/2023CommentsNoSex and Gender InformationValueDate RecordedSex Assigned at PkvwiTtjgsc81/06/2025 4:22 PM EDTLegal DtuWtdbmd34/29/2022 9:47 PM EDTGender AdtkbhecOrsjyl37/06/2025 4:22 PM EDTSexual OrientationHeterosexual or Yzjukvvl02/06/2025 4:22 PM EDTdocumented as of this encounter Plan of Treatment DateTypeDepartmentCare Team (Latest Contact Info)Upwmxactysw53/01/2025 9:00 AM ESTAncillary Procedure [facility] [address] [place] [address] Adjustment and management of cardiac nkatyjiya62/16/2025 10:30 AM ESTOffice Visit [facility] [address] [place] [address] Irvin Posada MD [address] [place] [address] NameTypePriorityAssociated DiagnosesOrder ScheduleTransthoracic echo (TTE) completeEchocardiographyRoutine Elevated erythrocyte sedimentation rate Expected: 01/31/2025 (Approximate), Expires: 01/31/2027documented as of this encounter Visit Diagnoses Diagnosis Elevated erythrocyte sedimentation rate- Primary Elevated sedimentation rate Adjustment and management of cardiac pacemaker Fitting and adjustment of cardiac pacemaker documented in this encounter Care Teams Team MemberRelationshipSpecialtyStart DateEnd Jeremiah Arvizu MD [address] [facility] [address] [address] PCP - Chgpect17/14/22documented as of this encounter
--- OUTSIDE RECORDS SUMMARY | 2025-02-12 06:48 | XMS_ITS | Encounter Summary ---
Author Organization [facility] Address [address] [place] [address] Care Team Providers Care Administrative Fellow Name Role Phone Jeremiah Arvizu MD Primary Care Provider [phone] Encounter Details DateTypeDepartmentCare Team (Latest Contact Info)Mkyeayktjxh46/27/2025Orders Only [facility] [address] [place] [address] Irvin Posada MD [address] [place] [address] Social History Tobacco UseTypesPacks/DayYears UsedDateSmoking Tobacco: FormerCigarettesQuit: [...] housing, medical care, and heating?Not hard at all3PHQ-2AnswerDate RecordedPatient Health Questionnaire-2 [id number] Safety & Environment AnswerDate RecordedWithin the last [...] 01/05/2023CommentsNoSex and Gender InformationValueDate RecordedSex Assigned at ZumcbHfnxvl35/06/2025 4:22 PM EDTLegal XlgNtwpbu06/29/2022 9:47 PM EDTGender DeiaqsqwGzolzi73/06/2025 4:22 PM EDTSexual OrientationHeterosexual or Cvjynqec94/06/2025 4:22 PM EDTdocumented as of this encounter Plan of Treatment DateTypeDepartmentCare Team (Latest Contact Info)Jsoovmrjrxt86/01/2025 9:00 AM ESTAncillary Procedure [facility] [address] [place] [address] Adjustment and management of cardiac bubrysmcb38/16/2025 10:30 AM ESTOffice Visit [facility] [address] [place] [address] Irvin Posada MD [address] [place] [id number] documented as of this encounter Procedures Procedure NamePriorityDate/TimeAssociated DiagnosisCommentsCARDIAC DEVICE CHECK - REMOTE - CARUEYTQCJahzmfp59/27/2025 12:00 AM ESTCARDIAC DEVICE CHECK - REMOTE - LPHYPYQTTZwmriyu90/27/2025 12:00 AM ESTdocumented in this encounter Results * Cardiac device check - Remote pacemaker (02/08/2025 12:00 AM EST)Anatomical RegionLateralityModalityOtherSpecimen (Source)Anatomical Location / Laterality Collection Method / VolumeCollection TimeReceived Time02/08/2025 Narrative Authorizing ProviderResult TypeResult StatusPaul Albino MDCV IMPLANTABLE CARDIAC DEVICE PROCEDURESFinal Result * Cardiac device check - Remote pacemaker (02/08/2025 12:00 AM EST)Anatomical RegionLateralityModalityOtherSpecimen (Source)Anatomical Location / Laterality Collection Method / VolumeCollection TimeReceived Time02/08/2025 Narrative Authorizing ProviderResult TypeResult StatusPaul Albino MDCV IMPLANTABLE CARDIAC DEVICE PROCEDURESFinal Result documented in this encounter Visit Diagnoses Not on filedocumented in this encounter Care Teams Team MemberRelationshipSpecialtyStart DateEnd Jeremiah Arvizu MD [address] [facility] [address] [address] PCP - Ygiylfl94/14/22documented as of this encounter
[2025-02-12 06:55] VITALS: BP 188/90; PULSE 80; TEMP 36.3; O2SAT 97
[2025-02-12 07:41] VITALS: BP 229/112; PULSE 87; O2SAT 93
[2025-02-12 07:43] VITALS: BP 219/99; PULSE 81; O2SAT 95
[2025-02-12] MEDS: LIDOCAINE HCL 2% 400 MG/20 ML MDV INJ (07:44)
[2025-02-12] MEDS: BUPIVACAINE HCL 0.25% PF 25 MG/10 ML VIAL 4 ML INJ (07:44)
[2025-02-12] MEDS: IOHEXOL 240 MG/ML - 10 ML VIAL 24 MG INJ (07:44)
[2025-02-12] MEDS: METHYLPREDNISOLONE ACETATE 40 MG/ML VIAL 80 MG INJ (07:45)
--- NOTE | 2025-02-12 07:47 | W.PM.PROCNOT ---
Date of procedure: 02/12/25 Pre-op diagnosis: Pain due to bilateral sacroiliitis Post-op diagnosis: same as pre-op Procedure: Procedure: Bilateral sacroiliac joint injection Medications: Bupivacaine 0.25% 4cc, depomedrol 40mg x2 After informed consent was obtained, the patient was brought to the medical procedure unit and placed in the prone position, when a timeout was completed verifying correct patient, procedure, site, positioning, implant, and/or special equipment.? The skin overlying the area was prepped and draped in standard sterile fashion using alcohol.? A 25-gauge needle was inserted towards the left sacroiliac joint under direct fluoroscopic imaging.? Needle tip was advanced until the joint was encountered.? We instilled a total of 2 mL of solution.? The same procedure was then completed on the right side.? Postoperatively needles were removed.? The patient tolerated the procedure well without complication.? The patient reported reduction in pain symptoms postoperatively. Anesthesia: Local Surgeon: Cande Garcia Pathology: none sent Condition: stable Disposition: no change
--- OUTSIDE RECORDS SUMMARY | 2025-02-12 09:00 | XMS_ITS | Encounter Summary ---
Author Organization [facility] Address [address] [place] [address] Care Team Providers Care Telegraph Office Manager Name Role Phone Jeremiah Arvizu MD Primary Care Provider [phone] Encounter Details DateTypeDepartmentCare Team (Latest Contact Info)Emzxebgbifm20/01/2025 9:00 AM ESTAncillary Procedure [facility] [address] [place] [address] Adjustment and management of cardiac pacemaker Social History Tobacco UseTypesPacks/DayYears UsedDateSmoking Tobacco: FormerCigarettesQuit: [...] heating?Not hard at all01/05/2023HQ-2AnswerDate RecordedPatient Health Questionnaire-2 Bstto956UT Safety & Environment AnswerDate RecordedWithin the last [...] 01/05/2023CommentsNoSex and Gender InformationValueDate RecordedSex Assigned at FonxyAghnai98/06/2025 4:22 PM EDTLegal PenGcqjdx33/29/2022 9:47 PM EDTGender EguzxivqXrfpzh56/06/2025 4:22 PM EDTSexual OrientationHeterosexual or Tszkkcam92/06/2025 4:22 PM EDTdocumented as of this encounter Plan of Treatment DateTypeDepartmentCare Team (Latest Contact Info)Arijnnjaszo56/16/2025 10:30 AM ESTOffice [facility] [address] [place] [address] Irvin Posada MD [address] [place] [address] documented as of this encounter Procedures Procedure NamePriorityDate/TimeAssociated DiagnosisCommentsCARDIAC DEVICE CHECK CHECK - YLUHZXFidqlfb68/28/2025 3:37 PM EST Adjustment and management of cardiac pacemaker documented in this encounter Results * CARDIAC DEVICE CHECK - REMOTE - PACEMAKER (02/09/2025 3:37 PM EST)Specimen (Source)Anatomical Location / LateralityCollection Method / VolumeCollection TimeReceived Time Narrative Authorizing ProviderResult TypeResult StatusPaul [facility] MDCV IMPLANTABLE CARDIAC DEVICE PROCEDURESFinal ResultPerforming OrganizationAddressCity/State/ZIP Code Phone Number CPACS documented in this encounter Visit Diagnoses Diagnosis Adjustment and management of cardiac pacemaker Fitting and adjustment of cardiac pacemaker documented in this encounter Care Teams Team MemberRelationshipSpecialtyStart DateEnd Jeremiah Arvizu MD [address] [place] [address] PCP - Olesjan76/14/22documented as of this encounter
== END 2025-02-12 07:54 | disposition home or self-care (01) ==
PROVIDERS: PCP Family Medicine; Visit Provider Anesthesiology
DX: M46.1 Sacroiliitis, not elsewhere classified (principal); G89.29 Other chronic pain
CPT/HCPCS: 27096; J0665; J1010; Q9966

== ENCOUNTER 2025-02-14 09:18 | Outpatient (RCR) | payer MEDICARE, SELFPAY | END 2025-03-14 23:59 | disposition home or self-care (01) | LOC: HEMC 09:18 | PROVIDERS: PCP Family Medicine; Visit Provider Internal Medicine Hematology & Oncology | DX: D64.9 Anemia, unspecified (principal); D63.1 Anemia in chronic kidney disease; R63.4 Abnormal weight loss; R10.84 Generalized abdominal pain; R10.32 Left lower quadrant pain; N18.30 Chronic kidney disease, stage 3 unspecified; Z95.0 Presence of cardiac pacemaker | CPT/HCPCS: G0463 ==

== ENCOUNTER 2025-02-23 07:29 | Outpatient (OUT) | payer MEDICARE, SELFPAY ==
--- OUTSIDE RECORDS SUMMARY | 2025-02-13 09:05 | XMS_ITS | Continuity of Care Document ---
Author Organization [facility] Address [address] [place] [address] Phone Care Team Providers Care Deck And [employer] Assembler Name Role Phone Jeremiah Arvizu MD Primary Care Provider [phone] Kal Molina MD Attending Provider Kal Molina MD Other Provider Regi Sanchez CMA Attending Provider Unavailabl Brandyn Talbot Attending Provider [phone] Care Teams Patient Care Team Team Status: Active Member Role/Relationship Status Gabo Arvizu MD Primary Care Provider Active Visit Care Team Team Status: Active Member Role/Relationship Status Gabo Arvizu MD Primary Care Provider Active Start: January 22, 2025 Rebecca Samson ProviderActiveStart: January 22, 2025 Alban Samson ProviderActiveStart: January 22, 2025 Visit Care Team Team Status: Active Member Role/Relationship Status Gabo Arvizu MD Primary Care Provider Active Start: January 22, 2025 Regi Sanchez CMAAttyony ProviderActiveStart: January 22, 2025 Visit Care Team Team Status: Inactive Member Role/Relationship Status Gabo Arvizu MD Primary Care Provider Active Start: February 06, 2025 End: February 06Rebecca Flower ProviderActiveStart: February 06, 2025 End: February 06, 2025 Patient Care Team Team Status: Inactive Member Role/Relationship Status Gabo Arvizu MD Primary Care Provider Active Start: February 13, 2025 End: February 13bdsayra Sarbjit AVINASHttending ProviderActiveStart: February 13, 2025 End: February 13, 2025 Chief Complaint and Reason for Visit Chief Complaint Admit Date hx of colon polyps January 22, 2025 7:08am Amb Documentation January 22, 2025 12:53pm D63.1 E78.5 N18.4 I12.9 February 06, 2 025 8:55am renal 3 month f/u February 13, 2025 1 :18pm Reason for Visit Admit Date Anemia of renal disease February 13 1:18pm CKD (chronic kidney disease) stage 4, GF R 15-29 ml/min February 13, 2025 1:18pm Hyperkalemia February 13, 2025 1 :18pm Hyperlipidemia February 13, 2025 1 :18pm Hypertensive chronic kidney disease with stage 1 through stage 4 chronic ki February 13, 2025 1:18pm Hyperuricemia February 13, 2025 1 :18pm Hypomagnesemia February 13, 2025 1 :18pm Secondary hyperparathyroidism February 132024 1:18pm Allergies, Adverse Reactions, Alerts Allergen Type Severity Reaction Last Updated Verified Status Comments adhesive tape Allergy Unknown skin rash February 8:46am Yes Active fluticasoneAllergyUnknownHeadacheDece2024 8:46amYesActivePenicillins Adverse ReactionMildUnknown ReactionDece2024 8:46amYesActiveyeast infection Social History Smoking Status Status Start Date End Date Date of Observa tion Ex-smoker (finding) February 13, 2025 1:29pm Observation Status Observation Response Date of Response Legal Sex Female (finding) [facility] 1949 Family History Relationship Condition Age at [...] July 19, 2024 10:28amfollow instructions given at officePeg 3350-Electrolytes (Golytely) 236-22.74-6.74 -5.86 gram recon vkzlKadpkwdcggjr490ZCXNQ41S159594Shg 2024 11:00pmNovember 2024 7:26amuntil fecal effluent is clearCalcium Carbonate-Vitamin D3 600 mg-10 mcg (400 unit) tabletActive0.ROUTE.MTKEEKN7200 October 23, 2024 10:49amTAKE TWO TABLETS BY MOUTH IN THE MORNINGComplies with drug therapyMagnesium Oxide 400 mg (241.3 mg magnesium) tabletActive0.ROUTE .AMKIZIR372Bcrzes 2024 10:51amTAKE 1 TABLET BY MOUTH DAILYComplies with drug therapyLiothyronine 25 mcg dciwdaHzfteg66.5MCGPODailyOctober 2023 11:00pmComplies with drug therapyLovastatin 20 mg iqxejiByuamc87YLSQRyujnNdtqkzx 2023 11:00pmComplies with drug therapyLevothyroxine 100 mcg capsule Qtfdzzfdwutw829YJMBQNcdbkEzjzvsm 2023 11:00pmApril 2024 10:17am Hydralazine 100 mg htqsfoDfwpgggfblma250MXPWYmtkm times dailyOctober 2023 11:00pmJuly 2024 10:10amAspirin (Adult Low Dose Aspirin) 81 mg tablet,delayed release (DR/EC)Tifjdnbpmlgu14VBPGNbpqsXyvlzqc 23rd, 2024 11:00pm February 13, 2025 1:27pmCarvedilol 25 mg ivsvrtBsunhertbzdu08.5MGPOTwice daily January 05, 2024 11:00pmDece2024 1:52pmHyoscyamine Sulfate 0.125 mg tabletDiscontinued0.125MGPOFour times dailyOctnorton suburban hospital 2023 11:00pmDece2023 11:04amPantoprazole 40 mg tablet,delayed release (DR/EC)Nlawptrrqkvc79 MGPODailyOct2023 11:00pmApril 2024 10:19amClotrimazole- Betamethasone 1-0.05 % ekmvwJjyddi2TJYXNFJQYHWZJPckcb as needed for rashOct2023 11:00pmComplies with drug therapyBumetanide 1 mg yffsreYnsjis2UUELIa DirectedOct2023 11:00pmComplies with drug therapyAlbuterol Sulfate 90 mcg/actuation HFA aerosol ersoczfVyndsw7TLEFRQPAVZOWZUXxwn times daily as needed for shortness of breath or wheezingOct2023 11:00pmComplies with drug therapyAlbuterol Sulfate 2.5 mg /3 mL (0.083 %) solution for nebulizationActive 2.5MGINHALATIONEVERY 4-6 HOURS as needed for shortness of breath or wheezing January 05, 2024 11:00pmComplies with drug therapyCalcium Carbonate-Vitamin D3 600 mg-10 mcg (400 unit) avbwneJeqmekmaluee1VMIFMZntrb morningOct2023 11:00pmApril 2024 10:58amLisinopril 10 mg xcvqgmWxffbw04QYHVDfvnrXvbawhf 23rd, 2024 11:00pmComplies with drug therapyTramadol 50 mg uzbrsvHxqaoncphpdn94 MGPOTwice daily as neededOct2023 11:00pmApril 2024 10:19amSod Picosulf-Mag Ox-Citric Ac (Clenpiq) 10 mg-3.5 gram- 12 gram/160 mL solution DiscontinuedMLPOTwice dailyOct2023 11:00pmFebruary 14, 2024 11:05am FreeTextSiml at 3pm, 160ml at 9pm the day prior to colonoscopy Orally BID; Note: Source Status: Start; Refills: 0; Qty: 1 Box; Provider: Musa May Pantoprazole 40 mg tablet,delayed release (DR/EC)Upesmw09LTMOAwtzg dailyApril 2024 10:17amComplies with drug therapyHydralazine 100 mg fbkncgRaychz002TD POTwice dailyJuly 2024 10:09amComplies with drug therapyAspirin (Adult Low Dose Aspirin) 81 mg tablet,delayed release (DR/EC)Wfjzbs83MOBBHflrd 48 hours February 13, 2025 1:24pmComplies with drug therapySodium Polystyrene Sulfonate ymnhaaWyckngouxtpm43IMNF8 Times a weekFebruary 14, 2024 12:00amApril 2024 10:94ahXnuzc-Iu-1-Oju-Wsk-Oqpobhu-Ast (Megared Sutter-3 Krill Oil) 337-962-17-64 mg nxayjujFlxnry9DKRURJxyhl at bedtimeFebruary 13, 2025 12:00amComplies with drug therapyCarvedilol 25 mg ubwuvsTyuwym91KWGTIlymn dailyFebruary 13, 2025 1:51pmComplies with drug therapyLevothyroxine 88 mcg asmmktEyyejr49EDYMFQhryx June 26, 2024 11:00pmComplies with drug therapySodium Polystyrene Sulfonate pckfntSwycslatzumd47GXHP8 Times a nawg6188Ocbuv 2024 10:56amApril 2024 12:04pmCalcium Carbonate-Vitamin D3 600 mg-10 mcg (400 unit) tablet Hmklzoqaxljy0BRVKHDscai fyjfoqa1968Osvzz 2024 10:57amApril 2024 11:27amCalcium Carbonate-Vitamin D3 600 mg-10 mcg (400 unit) tabletDiscontinued2 TABPOEvery msgjvkk3939Grgag 2024 11:27amAugust 2024 10:50amMagnesium Oxide 400 mg magnesium nqrjamFfzrmgxtvuts256VICTXdium111Upvlr 2024 11:00pm October 23, 2024 10:51amSodium Polystyrene Sulfonate lvdozgAajylb54ZUEE8 Times a atbu0325Jhcom 2024 12:04pmComplies with drug therapy Relevant Diagnostic Tests and/or Laboratory Data Laboratory Results Test Collection Date/Time Result Date/Time Result Interpretation Reference Range Result Comment Performing Site Corrected White Blood Count February 06, 2025 9:19am February 06, 2025 2:14pm 6.0 10*3/uL 3.8-11.6F[facility] [id number] [address] [facility] [address]Cgn Blood CountFebruary 06, 2025 9:19amNove2024 2:14pm3.89 10*6/uL3.60-5.00[facility] [id number] [address] [facility] 97221IvpgtsrprjGauhbglw 25th, 2025 9:19amNove2024 2:14pm 11.7 g/dLBelow low aprupu64.8-15.4F[facility] [id number] [address] [facility] 56642XgfkpgplnlQiaahdca 25th, 2025 9:19ove2024 2:14pm 35.1 %34.0-46.4F[facility] [id number] [address] [facility] 92461Dlfp Corpuscular VolumeFebruary 06, 2025 9:19amNove2024 2:14pm90.3 vN23-627OftlzggqwPeoples Hospital [facility] [id number] [address] [facility] 19904Blgr Corpuscular HemoglobinNov2024 9:ove2024 2:14pm30.0 pg24.7-34.3FUniversity [facility] [id number] [address] [facility] 22161Aybp Corpuscular Hemoglobin ConcentNov2024 9:19am February 06, 2025 2:14pm33.2 g/dL32.0-35.0[facility] [id number] [address] [facility] 81440Ddc Cell Distribution WidthNovember 2024 9:19amNove2024 2:14pm14.0 %11.9-15.3F[facility] [id number] [address] [facility] 374[address]Kyousjhj CountNovember 2024 9:amNoveer 2024 2:97fe116 10*3/gP780-680YdxofxxwkPeoples Hospital [facility]tr [id number] [address] [facility] 13281Kfxv Platelet VolumeNovember 2024 9:amNove2024 2:14pm7.7 fL6.3-10.7FUniversity [facility] [id number] [address] [facility] 09910Ladzx ColorNovember 2024 9:amNoveer 2024 2:03pm Light-yellowYellowPeoples Hospital Ctr [id number] [address] [facility] 11228Ruwnh AppearanceNovember 2024 9:19amNovember 2024 2:03pmClearClearPeoples Hospital Ctr [id number] [address] [facility] 65448Knujv Specific GravityNovember 2024 9:19amNove2024 2:03pm1.0161.001-1.030[facility] [id number] [address] [facility] 06994Zbdab pHNovember 2024 9:19amNove2024 2:03pm5.5 5.0-9.0[facility] [id number] [address] [facility] 36706Vouic Leukocyte EsteraseNovember 2024 9:19amNovember 2024 2:03pmNegativeNegativePeoples Hospital Ctr [id number] [address] [facility] 97550Gxhjd NitriteNovember 2024 9:19amNovember 2024 2:03pmNegativeNegativePeoples Hospital [facility]tr [id number] [address] [facility] 92071Kekjf ProteinNovember 2024 9:19amNove2024 2:03pmNegative mg/dLNegProMedica [facility] [id number] [address] [facility] 83427Ksqls Glucose (UA)February 06, 2025 9:ove2024 2:03pmNormal mg/dLNoKind[facility] [id number] [address] [facility] 42768Oajbl KetonesNov2024 9:19amNove2024 2:03pmNegativeNegativePeoples Hospital [facility] [id number] [address] [facility] 87673Pkbos UrobilinogenNov2024 9:ove2024 2:03pmNormal mg/dLNoKind[facility] [id number] [address] [facility] 54054Umurv BilirubinNov2024 9:ove2024 2:03pmNegativeNegProMedica Memorial Hospital [facility] [id number] [address] [facility] 89412Hqtgc Occult BloodNov2024 9:19amNove2024 2:03pmNegativeNegProMedica Memorial [facility] [id number] [address] [facility] 89092Eedmx RBCNov2024 9:2024 2:07pm1- 2 [HPF]0-4F[facility] [id number] [address] [facility] 13675Qwove WBCNov2024 9:19amNove2024 2:07pm3- 4 [HPF]0-4F[facility] [id number] [address] [facility] 22001Esrzr Squamous Epithelial CellsNov2024 9:19am February 06, 2025 2:24wg3-5 [HPF]Above high normal0-[facility] [id number] [address] [facility] 87338Emxus BacteriaNovember 2024 9:ove2024 2:07pmRare [HPF]None SeenPeoples Hospital Ctr [id number] [address] [facility] 85535Fwdzv Hyaline CastsFebruary 06, 2025 9:2024 2:07pmNone [LPF]0-8[facility] [id number] [address] [facility] 32073Lwzgdpt LevelNov2024 9:ove2024 2:22pm93 mg/vR86-716ZWQ recommended reference rangeRandom Glucose Reference Range is dependent on time and content of last meal. Glucose of more than 200 mg/dL in a nonstressed, ambulatory subject supports the diagnosisof Diabetes Mellitus.[facility] [id number] [address] [facility] 02999Gjhxr Urea NitrogenFebruary 06, 2025 9:2024 2:22pm43 mg/dLAbove high normal7-25[facility] [id number] [address] [facility] 29994SmswfhbhcvNmkfivbn 25th, 2025 9:2024 2:22pm 1.86 mg/dLAbove high normal0.60-1.20[facility] [id number] [address] [facility] 86537Fzmzupzmy GFR (CKD-EPI)February 06, 2025 9:2024 2:22pm28.249 mL/MinPeoples Hospital Ctr [id number] [address] [facility] 51285Yyvbes LevelFebruary 06, 2025 9:2024 2:02xh198 mmol/K811-283AltidigroPeoples Hospital Ctr [id number] [address] [facility] 11716Ioozrarec LevelFebruary 06, 2025 9:2024 2:22pm5.1 mmol/L3.5-5.1F[facility] [id number] [address] [facility] 72215Epdgcbzx LevelNov2024 9:ove2024 2:96ml066 mmol/LAbove high szemcv60-461SbgwwcnxtPeoples Hospital Ctr [id number] [address] [facility] 57923Lpgczh Dioxide LevelNov2024 9:19amNove2024 2:22pm28.5 mmol/L21.0-31.0[facility] [id number] [address] [facility] 14928Txokn GapFebruary 06, 2025 9:ove2024 2:22pm 11.6 mEq/L6.0-15.0[facility] [id number] [address] [facility] 67335Sjsaqdf LevelNov2024 9:amNove2024 2:22pm8.9 mg/dL8.6-10.3F[facility] [id number] [address] [facility] 11706Fdaghjbuzw LevelFebruary 06, 2025 9:amNove2024 2:22pm3.6 mg/dL2.5-4.5F[facility] [id number] [address] [facility] 22200Jlnkkxpzp LevelFebruary 06, 2025 9:amNove2024 2:22pm1.8 mg/dLBelow low normal1.9-2.7F[facility] [id number] [address] [facility] 92276WgyffdaAxdjthrk 25th, 2025 9:ove2024 2:22pm3.5 g/dL3.5-5.7F[facility] [id number] [address] [facility] 26169Nkcq AcidNov2024 9:19amNove2024 2:22pm 7.5 mg/dLAbove high normal2.3-6.6FUniversity [facility] [id number] [address] [facility] 73150Gyvi LevelFebruary 06, 2025 9:amNove2024 2:22pm 105 ug/tI76-559XvowkshtfPeoples Hospital Ctr [id number] [address] [facility] 89706Cpbhf Iron Binding CapacityNov2024 9:ove2024 2:39th861 ug/dLBelow low wexykv637-362UketbjwowPeoples Hospital Ctr [id number] [address] [facility] 72393Supb SaturationFebruary 06, 2025 9:2024 2:22pm41.5 %20-50[facility] [id number] [address] [facility] 61288VmaovlwtxszFajeyoha 25th, 2025 9:2024 2:22pm 181 mg/dLBelow low mvcbeg693-983RaxegoxwyPeoples Hospital Ctr [id number] [address] [facility] 11162GhbvfvpuYelznqrm 25th, 2025 9:2024 4:04pm 94.3 ng/mL11.0-306.8[facility] [id number] [address] [facility] 4142645-Smymyev Vitamin D TotalFebruary 06, 2025 9:2024 4:11pm38.7 ng/yU47-710ETBUXNK D STATUS 25(OH)VITAMIN D RANGE (ng/mL) Deficient <20 Insufficient 20 to <30Sufficient 30 to 100Reference: Jo MF,Jessica NC, Elizabeth LAMBERT, et al. Evaluation,treatment, and prevention of vitamin D deficiency; an Endocrine Society clinical practice guideline. JCEM. 2010; 96(7):1911-30.[facility] [id number] [address] [facility] 36620Fhavtzbhmzu Hormone (Intact)February 06, 2025 9:2024 4:15pm50.5 pg/xL71-83TfbssvjehPeoples Hospital Ctr [id number] [address] [facility] 03846Bpilrlse Creatinine Clearance (ChemNov2024 9:19am February 06, 2025 2:22pmN/[facility] [id number] [address] [facility] 59519Wpecj Random CreatinineFebruary 06, 2025 9:ove2024 2:28pm85.00 mg/dLNo reference range establishedPeoples Hospital Ctr [id number] [address] [facility] 83958Cotnn Random Total ProteinFebruary 06, 2025 9:19amNove2024 2:28pm12 mg/dLAbove high normal0-9[facility] [id number] [address] [facility] 65179Hglbh Protein/Creatinine RatioNove2024 9:19am February 06, 2025 2:69tl044 mg/g{Cre}0-200[facility] [id number] [address] [facility] [address] Vital Signs Vital Reading Result Reference Range Collection Date/Time Height 65 [in_i] January 22, 2025 7:92avPasguh925.27 kgNovember 2024 7:39amHeart Rate78 /tla61-195Srfpkncg 10th, 2025 9:10amRespiratory rate16 /zvs08-63Lsfeafnf 10th, 2025 9:10amOxygen saturation by Pulse pfbudloh35 %95-100Nov2024 9:10amBP Taqbczha394 mm[Hg]100-140Nov2024 9:10amBP Puxbaxwwx95 mm[Hg]60-100Nov2024 9:95erDbruss74 [in_i]February 13, 2025 1:22pm Opabrl367.51 kgDeceer 2024 1:22pmBody Zajzcgpmflc48.4 [degF]97.6-99.0 February 13, 2025 1:22pmHeart Rate80 /phe20-304Ednoauxy 2nd, 2025 1:22pm Respiratory rate18 /msn66-95Ifvvkzil 2nd, 2025 1:22pmOxygen saturation by Pulse %95-100Decemb2024 1:22pmBP Ebahiagf087 mm[Hg]100-140December 2024 1:22pmBP Bjexjuyfi66 mm[Hg]60-100December 2024 1:22pmBMI (Body Mass Index)46.7 kg/z5Lapavonu2024 1:22pm Advance Directives Advance Directive Response Recorded Date/ Time Advance Directives No January 06, 2024 11:45am Insurance Providers Charlyor Vero [place] Address [address] [facility] [address]Whrnykz Info.Home Phone: Coverage Status Update:February 13, 2025 Payer Group Member ID Coverage Type Subscriber Relationship to Subscriber Effective Date Expiration Date Cameron MCNEIL/TELLY Id: [id number] [place] Id: [id number] [address] [place] [address] Home Phone: SelfMedicare [id number] [place] Id: [id number] [address] [place] [address] Home Phone: SelfAnthem MCR PFFS [id number] [place] Id: [id number] [address] [place] [address] Home Phone: SelfRegular Insurance [address] [address] [place] [address] Work Phone: [phone] [place] Id: [id number] [address] [place] [address] Home Phone: SelfAetna SSI [address] [address] [place] [address] Work Phone: Id: Plan [id number] [place] Id: [id number] [address] [facility] [address] Home Phone: Self Encounters Encounter Location(s) Arrival/Admit Date Discharge/Departure Date Discharge/Departure Disposition Provider(s) [facility] Novem 2024 7:08am Kal Molina MDNon-patient / [facility]20[facility] 12:53pmAmy [facility] February 06, 2025 8:55am[facility] 2024 8:56amDischarged to home care or self care (routine discharge)JACKIE Alegreeparted Physician/Provider Office Visit-[facility] 1:18pmDecearizona [facility] hospital 2024 2:04pmDischarged to home care or self care (routine discharge)Lizette Schaffer MD Recent Diagnosis Onset Date Admit Date Anemia of renal disease Unknown February 13, 2025 1:18pm CKD (chronic kidney disease) stage 4, GFR 15-29 ml/min Unknown February 13, 2025 1:18pm Hyperkalemia Unknown February 13 1:18pm Hyperlipidemia Unknown February 13 1:18pm Hypertensive chronic kidney disease with stage 1 through stage 4 chronic ki Unknown February 13, 2025 1:18pm Hyperuricemia Unknown February 13 1:18pm Hypomagnesemia Unknown February 13 1:18pm Secondary hyperparathyroidism Unknown [facility] 1:18pm Assessments Diagnosis Onset Date Resolution Status Admit Date Anemia of renal disease acuteFebruary 13, 2025 1:18pmCKD (chronic kidney disease) stage 4, GFR 15-29 ml/minacute2024 1:18pmHyperkalemiaacutetrinity health [facility]2024 1:18pm Hyperlipidemiaacute2024 1:18pmHypertensive chronic kidney disease with stage 1 through stage 4 chronic kiacuteFebruary 13, 2025 1:18pm Hyperuricemiaacutetrinity health [facility]2024 1:18pmHypomagnesemiawarren memorial hospitalt[facility] 2024 1:18pmSecondary hyperparathyroidismacutetucson medical center 2024 1:18pm Plan of Treatment Author Lizette Sch[facility]Authok[facility] 2024 1:56pmShe has a CKD 4 due to the longstanding HTN with baseline serum creatinine around 1.8 2.2 mg/dL. I discussed with her importance of good HTN control to slow the progression of CKD. I advised her to avoid NSAIDs or qimd-qqr-sbonmpa medications. She had hyperkalemia due to the CKD and lisinopril. Her serum potassium is within normal limit. Advised her to limit the potassium intake and comply with Kayexalate. I explained the potential risk of cardiac arrhythmias due to the high potassium. She understood and verbalized information. MBD parameters are within the goal. I [...] on SPEP, UPEP, serum and urine immunofixation. Advised her to continue to follow up with Hematology She has hyperuricemia due to the CKD but denies any gout flare. Will continue to monitor without medication. 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 Will continue oral magnesium. I have advised her continue statins and follow-up with PCP for monitoring of LFTs and lipid profile. Future Tests Future scheduled test information is unavailable Pending Tests Test Name Ordered Date Scheduled Date Renal Function Panel February 13, 2025 1:56pm 4 Months Future Visits Future appointment information is unavailable Future Procedures Procedure Name Ordered Date Scheduled Date Discharge Order January 22, 2025 8:38am Novem 2024 8:38am Hemogram CBC Without Diff February 13, 2025 1:5 6pm 4 Months Iron and TIBC Profile February 13, 2025 1:56pm 4 Months Ferritin February 13, 2025 1:56pm 4 Gerald hs Magnesium February 13, 2025 1:56pm 4 Gerald hs Protein Creat Ratio Ur Random February 13, 2025 1:56pm 4 Months Parathyroid Hormone Intact February 13, 2025 1: 56pm 4 Months Uric Acid February 13, 2025 1:56pm 4 Gerald hs Vitamin D 25 Hydroxy Total February 13, 2025 1: 56pm 4 Months Future Medications Future medication information is unavailable Patient Instructions Instruction Admit Date [facility] Diverticulosis Dis charge Instructions [facility] Hemorrhoids Discharge Instructions Know your Meds [facility] Colon Polypectomy Discharge InstructionsNov2024 7:08am
--- NOTE | 2025-02-23 | NM_ITS ---
Patient Name: JUSTIN COLLINS MR#: [id number] : 1950 Exam Date: 02/23/2025 Ordering Doctor: DR TATO SALCIDO M.D. RADIOLOGY REPORT PROCEDURE: NM HELGA PERF SPECT REST STR COMPARISON: None. INDICATIONS: DYSPNEA ON EXERTION, ABNORMAL ECHOCARDIOGRAM, CAD TECHNIQUE: Exam Description: Rest/Stress two day protocol gated SPECT Rest Imagin.1 mCi Tc-99m Cardiolite IV on 02/23/2025 Stress Imaging 24.9 mCi Tc-99m Cardiolite IV on 02/26/2025 Exercise Protocol: 0.4 mg Lexiscan given IV Heart Rate (bpm): Rest: 70 Max: 83 PMHR: 56 Blood Pressure: Rest: 193/88 Max: 193/88 Symptoms: Rest and peak stress ECG findings were pending, and the exercise portion of the study was pending per attending physician [facility]. For more details, please see separate cardiac stress test report. FINDINGS: QUALITY OF STUDY: Adequate PERFUSION DEFECT: LOCATION: Basal anterior SIZE: Small SEVERITY: Mild TYPE: Fixed likely representing breast attenuation WALL MOTION: Normal wall motion LV SIZE: 120 mL. TID / TCD: 1.0 LVEF: Calculated EF 70%. SUMMARY: Myocardial perfusion imaging study is normal CONCLUSION: 1. Myocardial perfusion is probably normal with soft tissue attenuation 2. Global left ventricular systolic function is normal; EF 70% 3. No significant transient ischemic dilatation Dictated by: Tato Salcido M.D. on 02/26/2025 at 14:08 Approved by: Ttao Salcido M.D. on 02/26/2025 at 14:11
--- OUTSIDE RECORDS SUMMARY | 2025-02-23 07:32 | XMS_ITS | CCD ---
Author Organization [facility] Team Providers Care Roofer Helper Name Role Phone PHYSICIAN, DEFAULT Unavailable Unavailable PHYSICIAN, DEFAULT Unavailable Unavailable DEBBIE BHATIA Unavailable Unavailable JOEYY ., DR LEWIS Consulting Unavailable HOY ., DR LEWIS Attending Unavailable HOY ., DR LEWIS Primary Care Unavailable HOY ., DR LEWIS Admitting Unavailable ARLINGTON, DR RAJI Odonnell Consulting Unavailable HOY ., [...] Unavailable HOY ., DR LEWIS Admitting Unavailable ARLINGTON, DR RAJI Odonnell Consulting Unavailable Debbie Bhatia Primary Care Physician Debbie Bhatia MD Primary Care Provider [phone] NKANSAH-AMDENICE, ROSETTA Attending Unavail able NKANSAH-AMDENICE, ROSETTA Attending Unavail able NKANSCLAUDIO-AMDENICE, ROSETTA Referring Unavail able NKANSAH-AMANKRA, ROSETTA Admitting Unavail able NKANSAH-ANDREEAANKRA, ROSETTA Attending Unavail able Debbie Bhatia Referring Unavailable NKANSCLAUDIO-KEVANRA, ROSETTA Attending Unavail able Debbie Bhatia MD Primary Care Provider [phone] Kal Molina MD Attending Provider Debbie Bhatia MD Primary Care Provider [phone] MD ROSETTA MENDEZ Admitting Unav ailable MD ROSETTA MENDEZ Attending Unav ailable MD ROSETTA MENDEZ Referring Unav ailable MD ROSETTA MENDEZ Attending Unav ailable MD ROSETTA MENDEZ Attending Unav ailable MD ROSETTA MENDEZ Attending Unav ailMD ROSETTA Bryan Referring Unav ailable MD ROSETTA MENDEZ Admitting Unav ailable Debbie Bhatia MD Primary Care Provider [phone] Sarbjit MD, Lizette Attending Provider Tracy BELTRÁN, Imjavier Other Provider Sarbjit BELTRÁN, Lizette Attending Provider [phone] Giedraitis , Andrius Vytautemily Attending Unavailable Giedraitis [...] Facility (10 sources)Penicillins; Translations: [PENICILLINS]Drug allergy (disorder) 24-02-0519TGE, Unknown ReactionThe [facility] RepositoryComment on above:yeast infection (7 sources)Adhesive Tape; Translations: [adhesive tape]Allergy to substance 82-55-8547ddhfBlanchard [facility] (7 sources)Adhesive bandage; Translations: [Adhesive Bandage]Drug allergyWeal (disorder)[facility] (17 sources)PenicillinsDrug Hnurqlt92-57-6425[facility] (5 sources)fluticasone; Translations: [fluticasone]Drug Vbfwhzi89-08-4301 [facility] (1 source)fluticasone; Translations: [FLUTICASONE PROPIONATE]Drug Allergy 62-23-0401GajseregviUC West [facility] Hospital Repository (1 source)PenicillinsDrug allergy (disorder)94-67-4362RrtdxgycsRiverview Health Institute Repository Medications Current Medications MedicationDrug Class(es)DatesSig (Normalized)Sig (Original)[id number] 200 actuat albuterol 0.09 mg/actuat metered dose inhaler (20 sources)beta2-Adrenergic AgonistStart: 00-08-5279ycst 2.5 mg by inhalation every four to six hours as needed for wheezingAlbuterol Sulfate 2.5 mg /3 mL (0.083 %) solution for nebulization Active 2.5 MG INHALATION EVERY 4-6 HOURS as needed for shortness of breath or wheezing January 05, 2024 11:00pm Complies with drugtherapyStart: 40-25-6299gres 1 puff(s) by inhalation four times daily [...] Date: 11/25/22 Status: Ordered Repeat number: 1Start: 32-18-5575jvsm 2 puff(s) by inhalation every four hoursAlbuterol (Eqv-ProAir HFA) 2 puff(s), Inhalation, q4hr Shortness of breath or wheezing, Refill(s) 0Start Date: 11/25/22 Status: Ordered Repeat number: 1Start: 89-67-9891rxnq 2 puff(s) by inhalation every four hoursAlbuterol (Eqv-ProAir HFA) 2 puff(s), Inhalation, q4hr Shortness of breath or wheezing, Refill(s) 0Start Date: 11/25/22 Status: Orderedtake 2 puff(s) by inhalation every four hoursalbuterol HFA 90 mcg/act inhaler Inhale 2 puffs every 4 (four) hours if needed Activeaspirin 81 mg delayed release oral tablet (20 sources)Platelet Aggregation Inhibitor, Nonsteroidal Anti-inflammatory Drug Start: 87-40-7006Upsmozl (Adult Low Dose Aspirin) 81 mg tablet,delayed release (DR/EC) Active 81 MG PO Daily 2023 11:00pm Complies with drug therapyazelastine hydrochloride 0.137 mg/actuat metered dose nasal spray (13 sources)Histamine-1 Receptor AntagonistStart: 39-67-9125Raqhhgemmj HCl 137 MCG/SPRAY solution every 12 (twelve) hours 06/08/2024 Activeazithromycin 250 mg oral tablet (2 sources)Macrolide AntimicrobialStart: 12-05-2024 End: 55-09-1856ptdqwgzrjavc (Zithromax Z-Maicol) 250 MG tablet Indications: Acute URI Take 2 tabs (500 mg) by mouth today, then 1 tab (250 mg) daily for 4 days. 6 tablet 12/05/2024 12/10/2024 Activebetamethasone 0.5 mg/ml / clotrimazole 10 mg/ml topical cream (13 sources)Azole Antifungal, CorticosteroidStart: 36-68-3931ljckypaqxvbc- betamethasone (Lotrisone) cream APPLY A SMALL AMOUNT TO AFFECTED AREA TWICE A DAY *USESPARINGLY* 11/02/2024 ActiveStart: 26-05-3583cntdhbrociuav-clotrimazole Top 0.05%-1% Crm 15 gram Refill(s) 0 Start Date: 03/31/24 Status: OrderedRepeat number: 1Start: 00-73-4860Voszjmndzxqy-Betamethasone 1-0.05 % cream Active 1 APPLIC TOPICAL Daily as needed for rash January 05, 2024 11:00pm Complies with drug therapyStart: 40-88-6318Qsqarhpuurqb-Betamethasone 1-0.05 % cream Active APPLIC TOPICAL January 06, 2024 12:00ambumetanide 1 mg oral tablet (11 sources)Loop DiureticStart: 15-43-6119Bgbnvzinak 1 mg tablet Active 1 MG PO As Directed January 05, 2024 11:00pm Complies with drug therapycalcium carbonate 600 mg / cholecalciferol 0.01 mg oral tablet (20 sources)Vitamin DStart: 20-08-0993nnhc 2 tablets by mouth in the morning Calcium Carb-Cholecalciferol 600-10 MG-MCG tablet TAKE TWO TABLETS BY MOUTH IN THE MORNING 10/23/2024 ActiveStart: 32-41-2607ylwk 2 tablets by mouth in the morningCalcium Carbonate-Vitamin D3 600 mg-10 mcg (400 unit) tablet Active 0 .ROUTE .COMPLEX 180 October 23, 2024 10:49am TAKE TWO TABLETS BY MOUTH IN THE MORNING Complies with drug therapyStart: 01-06-2024 End: 28-73-7214eeil 2 tablets by mouth once daily in the morningCalcium Carbonate-Vitamin D3 600 mg-10 mcg (400 unit) tablet Discontinued 2 TAB PO Every morning 180 1 June 27, 2024 11:27am October 23, 2024 10:50amStart: 07-20-2023 End: 35-73-5531cpzl 2 tablets by mouth in the morningCalcium Carb- Cholecalciferol 600-10 MG-MCG tablet Take 2 tablets by mouth in the morning. 07/20/2023 07/19/2024 Activecarvedilol 12.5 mg oral tablet (13 sources)alpha-Adrenergic [place], beta-Adrenergic BlockerStart: 10-07-2024 take 1 tablet by mouth twice daily at mealtimecarvedilol (Coreg) 12.5 MG tablet TAKE 1 TABLET BY MOUTH TWICE A DAY WITH FOOD FOR 90 DAYS 10/07/2024 ActiveStart: 29-89-9720qqze 12.5 mg by mouth twice dailyCarvedilol Active 12.5 MG PO Twice daily January 06, 2024 12:00amStart: 51-68-1665Bktjttpnhm 25 mg tablet Active 12.5 MG PO Twice daily January 05, 2024 11:00pm Complies with drugtherapy cephalexin 500 mg oral capsule (10 sources)Cephalosporin AntibacterialStart: 07-13-2024 End: 28-61-7536eupu 1 capsule by mouth every twelve hourscephalexin (Keflex) 500 MG capsule TAKE 1 CAPSULE BY MOUTH EVERY 12 HOURS FOR 5 DAYS 07/13/202411/14 Discontinued (Therapy completed)ciprofloxacin 3 mg/ml / dexamethasone 1 mg/ml otic suspension (3 sources)Corticosteroid, Quinolone AntimicrobialStart: 08-09-2024 End: 16-21-2353jxnisfdpicked-dexAMETHasone (CiproDEX) otic suspension Indications: ETD (Eustachian tube dysfunction), right Administer 4 drops into the right ear in the morning and 4 drops before bedtime. Do all this for 7 days. 7.5 mL 08/09/2024 08/16/2024 Activediclofenac potassium 50 mg oral tablet (2 sources)Nonsteroidal Anti-inflammatory DrugStart: 25-32-2712lzhe 1 tablet by mouth once dailydiclofenac potassium 50 mg oral tablet 50 mg = 1 tab(s), Oral, Daily, Refills(s) 0 Start Date: 11/25/22 Status: Ordereddoxycycline monohydrate 100 mg oral capsule (9 sources)Tetracycline-class DrugStart: 09-02-3575glzvkzxtxvt (Monodox) 100 MG capsule 08/08/2024 Activefluticasone propionate 0.05 mg/actuat metered dose nasal spray (6 sources)CorticosteroidStart: 05-09-2024 End: 84-24-6813ohndrzolegs (Flonase) 50 MCG/ACT nasal spray Indications: OME (otitis media with effusion), right 2sprays on the right twice daily. Shake gently. Before first use, prime pump. After use, clean tip and replace cap. 48 g 3 05/09/2024 06/20/2024 Discontinued (Side effects)hydrALAZINE hydrochloride 100 mg oral tablet (16 sources)Arteriolar VasodilatorStart: 28-21-1786nvcz 1 tablet by mouth twice dailyHydralazine 100 mg tablet Active 100 MG PO Twice daily October 05, 2024 10:09am Complies with drug therapyStart: 11-25-2022 End: 09-01-9524fkds 1 tablet by mouth three times dailyHydralazine 100 mg tablet Discontinued 100 MG PO Three times daily January 05, 2024 11:00pm October 05, 2024 10:10amisosorbide dinitrate 10 mg oral tablet (4 sources)Nitrate VasodilatorStart: 44-02-3612nkfu 1 tablet by mouth once daily isosorbide dinitrate 20 mg Tab 20 mg = 1 tab(s), Oral, Daily, Refills(s) 0 Start Date: 11/25/22 Status: OrderedStart: 55-95-5812obov 1 tablet by mouth once daily isosorbide dinitrate 10 mg Tab 10 mg = 1 tab(s), Oral, Daily, Refills(s) 0 Start Date: 11/25/22 Status: Orderedlevothyroxine sodium 0.088 mg oral tablet (20 sources)l-ThyroxineStart: 85-41-2056zzuv 1 tablet by mouth once daily Levothyroxine 88 mcg tablet Active 88 MCG PO Daily June 26, 2024 11:00pm Complies with drug therapyStart: 94-00-5021xhei 1 capsule by mouth once daily levothyroxine 88 mcg (0.088 mg) oral capsule 88 mcg = 1 cap(s), Oral, Daily, Refills(s) 0, Thyroid Start Date: 06/26/24 Status: Ordered Repeat number: 1Start: 01-06-2024 End: 75-52-3735guwv 1 capsule by mouth once dailyLevothyroxine 100 mcg capsule Discontinued 100 MCG PO Daily January 05, 2024 11:00pm June 27, 2024 10:17amStart: 23-37-8243axqj 1 tablet by mouth once dailylevothyroxine 100 mcg (0.1 mg) Tab 100 mcg = 1 tab(s), Oral, Daily, Refills(s) 0 Start Date: 11/25/22 Status: Orderedtake 1 tablet by mouth before mealtimelevothyroxine (Synthroid, Levoxyl) 100 MCG tablet Take 100 mcg by mouth in the morning. Take beforemeals. Activeliothyronine sodium 0.025 mg oral tablet (20 sources)l-TriiodothyronineStart: 06-66-5168quei 1 tablet by mouth once daily Liothyronine 25 mcg tablet Active 37.5 MCG PO Daily January 05, 2024 11:00pm Complies with drug therapyStart: 20-93-7080vyys 1 tablet by mouth once daily Liothyronine 25 mcg tablet Active 37.5 MCG PO Daily January 06, 2024 12:00am Start: 49-53-0898zcnz 37.5 ug by mouth once dailyLiothyronine Active 37.5 MCG PO Daily January 06, 2024 12:00amStart: 81-12-4762Ubrjmzb 25 mcg Tab 37.5 mcg = 1.5 tab(s), Oral, Daily, Refills(s) 0 Start Date: 11/25/22 Status: Ordered Repeat number: 1Start: 27-85-2219utgo 1 tablet by mouth once dailyCytomel 25 mcg Tab 25 mcg = 1 tab(s), Oral, Daily, Refills(s) 0 Start Date: 11/25/22 Status: Ordered take 1.5 tablets by mouth in the morningliothyronine (Cytomel) 25 MCG tablet Take 1.5 tablets by mouth in the morning. Activelisinopril 10 mg oral tablet (20 sources)Angiotensin Converting Enzyme InhibitorStart: 57-49-4167egsw 1 tablet by mouth once dailyLisinopril 10 mg tablet Active 10 MG PO Daily January 05, 2024 11:00pm Complies with drug therapyStart: 25-43-3174axtk 1 tablet by mouth once dailylisinopril 5 mg Tab 5 mg = 1 tab(s), Oral, Daily, Refills(s) 0 Start Date: 11/25/22 Status: Orderedlovastatin 20 mg oral tablet (20 sources)HMG-CoA Reductase InhibitorStart: 39-48-9962vhrc 1 tablet by mouth once dailyLovastatin 20 mg tablet Active 20 MG PO Daily January 05, 2024 11:00pm Complies with drug therapymagnesium oxide 400 mg oral tablet (7 sources)Start: 24-72-7446tnjq 1 tablet by mouth once dailyMagnesium Oxide 400 mg (241.3 mg magnesium) tablet Active 0 .ROUTE .COMPLEX 90 October 23, 2024 1 0:51am TAKE 1 TABLET BY MOUTH DAILY Complies with drug therapyStart: 06-27-2024 End: 70-72-2592wfii 1 tablet by mouth once dailyMagnesium Oxide 400 mg magnesium tablet Discontinued 400 MG PO Daily 90 June 26, 2024 11:00pm October 23, 2024 10:51amMagnesium Sulfate (2 sources)Start: 31-75-7761xuygnbuiy sulfate Refills(s) 0 Start Date: 07/13/24 Status: Ordered Repeat number: 1ondansetron 4 mg disintegrating oral tablet (2 sources)Serotonin-3 Receptor AntagonistStart: 44-29-8020bgfo 1 tablet by mouth every six hours as needed for nauseaondansetron 4 mg Dis Tab 4 mg = 1 tab(s), Oral, q6hr, PRN Nausea/Vomiting, Refills(s) 0 Start Date:11/25/22 Status: Orderedpantoprazole 40 mg delayed release oral tablet (16 sources)Proton Pump InhibitorStart: 36-00-6862xhgk 1 tablet by mouth twice dailyPantoprazole 40 mg tablet,delayed release (DR/EC) Active 40 MG PO Twice daily June 27, 2024 10:17am Complies with drug therapyStart: 01-06-2024 End: 10-44-2609vmns 1 tablet by mouth once dailyPantoprazole 40 mg tablet,delayed release (DR/EC) Discontinued 40 MG PO Daily January 05, 2024 11:00pm June 27, 2024 10:19amphenazopyridine hydrochloride 100 mg oral tablet (1 source)Start: 07-13-2024 End: 33-02-0818iftc 1 tablet by mouth three times dailyPyridium [...] (6 sources)Calculi Dissolution Agent, Anti-coagulantStart: 01-06-2024 End: 34-51-2787Wmf Picosulf-Mag Ox-Citric Ac (Clenpiq) 10 mg-3.5 gram- 12 gram/160 mL solution Discontinued ML PO Twice daily January 05, 2024 11:00pm February 14, 2024 11:05am FreeTextSiml at 3pm, 160ml at 9pm the day prior to colonoscopy Orally BID; Note: Source Status: Start; Refills: 0; Qty: 1 Box; Provider: Musa Bearden Hhyoscyamine sulfate 0.125 mg oral tablet (6 sources)Start: 01-06-2024 End: 23-82-7795nzcw 1 tablet by mouth four times dailyHyoscyamine Sulfate 0.125 mg tablet Discontinued 0.125 MG PO Four times daily January 05, 2024 11:00pm February 14, 2024 11:04ampolyethylene glycol 3350 472518 mg / potassium chloride 2970 mg / sodium bicarbonate 6740 mg / sodium chloride 5860 mg / sodium sulfate 56396 mg powder for oral solution (7 sources)Osmotic LaxativeStart: 07-24-2024 End: 10-84-1166Qoy 3350-Electrolytes (Golytely) 236-22.74-6.74 -5.86 gram recon soln Discontinued 240 ML PO Q10M 4000 1 0 July 23, 2024 11:00pm January 22, 2025 7:26am until fecal effluent is clearStart: 06-28-2024 End: 67-09-4024Fpx 3350-Electrolytes (Golytely) 236-22.74-6.74 -5.86 gram recon soln Discontinued 240 ML PO Q10M 4000 1 0 June 27, 2024 11:00pm July 19, 2024 10:28am follow instructions given at officesodium polystyrene sulfonate 12189 mg powder for oral suspension (14 sources)Start: 06-27-2024 End: 90-59-4735agyo 15 g by mouth three times weeklySodium Polystyrene Sulfonate powder Discontinued 15 GM PO 3 Times a week 150 June 27, 2024 11:56am June 27, 2024 1:04pmStart: 53-70-6273xeic 15 g by mouth three times weeklySodium Polystyrene Sulfonate powder Active 15 GM PO 3 Times a week 150 June 27, 2024 11:56amStart: 02-14-2024 End: 77-55-1118mpiy 15 g by mouth three times weeklySodium Polystyrene Sulfonate powder Discontinued 15 GM PO 3 Times a week 150 6 June 27, 2024 10:56am June 27, 2024 12:04pmtraMADol hydrochloride 50 mg oral tablet (20 sources)Opioid AgonistStart: 08-09-2023 End: 07-27-9558gmix 1 tablet by mouth twice daily as neededTramadol 50 mg tablet Discontinued 50 MG PO Twice daily as needed January 05, 2024 11:00pm June 132024 10:19am Problems Active Problems Problem ClassificationProblemDateDocumented DateEpisodic/ChronicCardiac dysrhythmias (20 sources)Supraventricular tachycardia; Translations: [Atrial fibrillation] Onset: 66-10-6003OfikudmSzsmjqv kidney disease (20 sources)Chronic kidney disease stage 4; Translations: [Chronic kidney disease, stage 4 (severe)]Onset: 166586-84-4990HckojnvJczjygk obstructive pulmonary disease and bronchiectasis (20 sources)Chronic obstructive lung disease; Translations: [Chronic obstructive pulmonary disease, unspecified]Onset: 536419-98-2979KfxmiteQxtlbzukyi disorders (13 sources)Cardiac pacemaker in situ; Translations: [Presence of cardiac pacemaker]Onset: 939376-78-0085HzxftcyGoeshhosgh heart failure; nonhypertensive (3 sources)Acute combined systolic (congestive) and diastolic (congestive) heart failure; Translations: [Unspecified diastolic (congestive) heart failure]Onset: 75-26-3852ExpbgofHoqufhfd atherosclerosis and other heart disease (20 sources)Coronary arteriosclerosis; Translations: [Atherosclerotic heart disease of [place] coronary artery without angina pectoris]Onset: 05-09-2024 94-94-3535LopwfwePovuhpyvle and other anemia (1 source)Anemia in chronic kidney disease; Translations: [Anemia in chronic kidney disease]Onset: 83-73-6509AwnysvtGanvgsrxd of lipid metabolism (20 sources)Hyperlipidemia, unspecified; Translations: [Pure hypercholesterolemia, unspecified]Onset: 149887-71-7560EeazzjcSaqnouoea hypertension (20 sources)Hypertensive disorder; Translations: [Essential hypertension]Onset: 895916-14-8138OzsofdpQgdwhcyjzrbre symptoms and ill-defined conditions (20 sources)Stress incontinence (female) (male); Translations: [Female stress incontinence]Onset: 26-87-7525OhkszmlEevmmaim; including migraine (2 sources)Migraine, unspecified, not intractable, without status migrainosus; Translations: [Migraine, unspecified, not intractable, without status migrainosus]Onset: 75-44-7762QgmyeitFlohrhjp; including migraine (2 sources)Headache; Translations: [Nonintractable headache, unspecified chronicity pattern, unspecified headache type]92-70-9135ExatdeikXgztodsmsfxn with complications and secondary hypertension (18 sources)Hypertensive heart disease with heart failure; Translations: [Chronic kidney disease due to hypertension]Onset: hronic Osteoporosis (4 sources)Age-related osteoporosis without current pathological fracture; Translations: [AGE-REL OSTEOPOR W/OCURR PATH FX]Onset: 59-27-4876CdxgamgBqxfj diseases of bladder and urethra (7 sources)Urethral intrinsic sphincter deficiency; Translations: [Intrinsic sphincter deficiency (ISD)]Onset: 32-75-2606FfwwltqzPcoak diseases of kidney and ureters (20 sources)Secondary hyperparathyroidism; Translations: [Secondary hyperparathyroidism of renal origin]Onset: 224100-65-7017QutpmebKnsnq diseases of kidney and ureters (4 sources)Secondary hyperparathyroidism of renal origin; Translations: [Secondary hyperparathyroidism (of renal origin)]Onset: ChronicOther diseases of veins and lymphatics (1 source)Lymphedema, not elsewhere classified; Translations: [LYMPHEDEMA NOT ELSEWHERE CLASSIFIED]Onset: 25-24-8667VlkjdsrXpeta ear and sense organ disorders (2 sources)Mixed conductive and sensorineural hearing loss, unilateral, right ear, with unrestricted hearing on the contralateral side; Translations: [Mixed hearing loss, unilateral]03-84-6170WfhdlloJwgou ear and sense organ disorders (2 sources)Chronic right myringitis; Translations: [Chronic myringitis, right ear]40-78-8666BhyttdiCpkjl ear and sense organ disorders (2 sources)Cerebrospinal fluid otorrhea; Translations: [CSF otorrhea]08-09-2024 EpisodicOther nutritional; endocrine; and metabolic disorders (20 sources)Morbid obesity; Translations: [Morbid (severe) obesity due to excess calories]Onset: 848273-56-1641WezrmclPsuub nutritional; endocrine; and metabolic disorders (7 sources)Hypomagnesemia; Translations: [Hypomagnesemia]94-36-4682SzjjmfuVulmh nutritional; endocrine; and metabolic disorders (3 sources)Hypomagnesemia; Translations: [Disorders of magnesium metabolism] Onset: 955061-36-5723OfgedjaWredc nutritional; endocrine; and metabolic disorders (2 sources)Body mass index 40+ - severely obese; Translations: [Body mass index (BMI) 45.0-49.9, adult]Onset: 108522-00-0166BntskcmWjkqa nutritional; endocrine; and metabolic disorders (7 sources)Hyperuricemia; Translations: [Hyperuricemia without signs of inflammatory arthritis and tophaceous disease]03-45-2447HykkelnrUllkh screening for suspected conditions (not mental disorders or infectious disease) (5 sources)Encounter for screening, unspecified; Translations: [Encounter for screening for malignant neoplasmof colon]Onset: 16-39-1860SoxcqqwbShnqq upper respiratory infections (2 sources)Acute upper respiratory infection; Translations: [Acute upper respiratory infection, unspecified]65-85-9480NeddhodtXkbfmj media and related conditions (2 sources)Chronic right mastoiditis; Translations: [Chronic mastoiditis, right ear]74-97-7138LeuejkhSpcdph media and related conditions (12 sources)Otitis media; Translations: [Unspecified nonsuppurative otitis media, right ear]32-04-1179ObneqytfNprtbyetr heart disease (20 sources)Pulmonary hypertension; Translations: [Secondary pulmonary hypertension]Onset: 077675-50-0008RkmzssxIaxlxsta codes; unclassified (18 sources)Obstructive sleep apnea syndrome; Translations: [Obstructive sleep apnea (adult) (pediatric)]Onset: 92-85-075911818111-66-9855VokilqbOccetrgoj and history of mental health and substance abuse codes (5 sources)Tobacco use and exposure - svaetod07-34-9232ButrwkgApcajplwfvz; intervertebral disc disorders; other back problems (18 sources)Lumbosacral spondylosis without myelopathy; Translations: [Spondylosis without myelopathy or radiculopathy, lumbosacral region]Onset: 999145-44-6125VjxeeynCkqtgrr disorders (20 sources)Hypothyroidism, unspecified; Translations: [Hypothyroidism]Onset: 259205-61-9345HixxzfpYpljzhrdydik (3 sources)CONTACT W/AND (SUSP) EXPOS COVID-19; Translations: [CONTACT W/AND (SUSP) EXPOS COVID-19]Onset: 78-96-8708Dusvhykfikuy (1 source)COUGH, UNSPECIFIED; Translations: [COUGH, UNSPECIFIED]Onset: 09-91-7409Piutqpaxiieu (5 sources)Long-term current use of dpdmmku94-71-5982Cwrzpgprxbtd (1 source)Vertebrogenic low back pain; Translations: [Vertebrogenic low back pain]Onset: 11-23-2023 Past or Other Problems Problem ClassificationProblemDateDocumented DateEpisodic/ChronicAbdominal pain (20 sources)Lower abdominal pain; Translations: [Lower abdominal pain, unspecified]Onset: 130563-24-9692YkzpmipbMigrusej of urinary tract (20 sources)Kidney stone; Translations: [Calculus of kidney]Onset: 03-31-2024 EpisodicCardiac dysrhythmias (20 sources)Palpitations; Translations: [Bradycardia]Onset: 03-20-9269Srbepmgl Conditions associated with dizziness or vertigo (18 sources)Lightheadedness; Translations: [Dizziness and giddiness]Onset: 475729-92-5497EauziucqBtxvyvvvdh and other anemia (1 source)Anemia, unspecified; Translations: [ANEMIA UNSPECIFIED]Onset: 54-09-0457NvorzoatT Codes: Cut/pierceb (1 source)Contact with other sharp object(s), not elsewhere classified, initial encounter; Translations: [CNTC OTH SHRP OB NOT ELSW CLASS INI]Onset: 08-14-2021 EpisodicFluid and electrolyte disorders (20 sources)Hyperkalemia; Translations: [Hyperkalemia]Onset: 01-26-2024 91-48-8376OaqyymaoVjtjtoknonyiluby hemorrhage (1 source)Hemorrhage of anus and rectum; Translations: [Hemorrhage of anus and rectum]Onset: 58-57-0613PukbstagTzwawdp and fatigue (18 sources)Fatigue; Translations: [Other fatigue]Onset: EpisodicNonspecific chest pain (19 sources)Chest pain, unspecified; Translations: [Chest pain]Onset: 07-27-2016 91-73-7565ZobouycaPkms wounds of extremities (4 sources)Laceration without foreign body, right lower leg, initial encounter; Translations: [LACERATION W/O FB RT LOW LEG INIT]Onset: 94-39-5885GzwpqtueSjfpb aftercare (1 source)Other usp (current) drug therapy; Translations: [OTH ALUM MIXER CURRENT DRUG THERAPY]Onset: 70-19-4575XylshwcqJswob aftercare (20 sources)Long-term current use of aspirin; Translations: [traveling representative (current) use of aspirin]Onset: 07-06-9217GwynrrhmCvbhf and unspecified benign neoplasm (1 source)Personal history of colonic polyps; Translations: [PERSONAL HISTORY OF COLONIC POLYPS]Onset: 98-95-6484TaffnsfcUcghm and unspecified benign neoplasm (20 sources)History of polyp of colon; Translations: [History of colon polyps] Onset: 254552-27-9355LboodsgbPcsrg circulatory disease (1 source)Other specified symptoms and signs involving the circulatory and respiratory systems; Translations:[OTH SPEC SX SIGNS INVLV CIRC RS]Onset: 73-55-6705ZjupywgrRjqme diseases of veins and lymphatics (1 source)Venous insufficiency (chronic) (peripheral); Translations: [VENOUS INSUFF CHRONIC PERIPHERAL]Onset: 80-84-3923JkdlhzljYlwea lower respiratory disease (4 sources)Shortness of breath; Translations: [SHORTNESS OF BREATH]Onset: 65-92-3941OlpubpepUqaua lower respiratory disease (20 sources)Multiple nodules of lung; Translations: [Other nonspecific abnormal finding of lung field]Onset: 168198-07-4005JawylrrtHrweq lower respiratory disease (18 sources)Dyspnea; Translations: [Dyspnea, unspecified]Onset: 07-27-2016 25-25-5067OpchhjwvTucpx nutritional; endocrine; and metabolic disorders (3 sources)Hyperuricemia without signs of inflammatory arthritis and tophaceous disease; Translations: [Other abnormal blood chemistry]Onset: 09-22-2024 58-35-0717NfwlxmbuFobyxmvs codes; unclassified (4 sources)Edema, unspecified; Translations: [EDEMA UNSPECIFIED]Onset: 27-03-5178JmshfzrzUqrlfwyc codes; unclassified (1 source)Localized edema; Translations: [LOCALIZED EDEMA]Onset: 01-19-2022 EpisodicResidual codes; unclassified (1 source)Acquired absence of both cervix and uterus; Translations: [ACQUIRED ABSENCE BOTH CERVIX AND UTERUS]Onset: 78-37-9123AfpptzkkQzlsgksh codes; unclassified (20 sources)History of operative procedure on lumbar spinal structure; Translations: [Other specified postprocedural states]Onset: 998512-79-6939 EpisodicResidual codes; unclassified (18 sources)Edema; Translations: [Edema, unspecified]Onset: EpisodicScreening and history of mental health and substance abuse codes (20 sources)Personal history of nicotine dependence; Translations: [H/O: Disorder]Onset: 42-14-7282QdnfetqxWrqdznqjxsn; intervertebral disc disorders; other back problems (20 sources)Spinal stenosis, lumbar region with neurogenic claudication; Translations: [Radiculopathy, lumbar region]Onset: 41-22-7412Kwdlqnkm Unclassified (1 source)CONTACT W/AND (SUSP) EXPOS COVID-19; Translations: [CONTACT W/AND (SUSP) EXPOS COVID-19]Onset: 23-67-5640Vgoyzlpckidj (1 source)Vertebrogenic low back pain; Translations: [Vertebrogenic low back pain]Onset: 11-23-2023 Results Test NameValueInterpretationReference RangeFacilityLon 01-22-2025L Specimen: [id number] Received: 01/22/25 Status: YUMI Russell Num: [id number] Spec Type: Surgical Subm Dr: Kal Molina MD Tissues: A Colon Biopsy (ASCENDING POLYP) B Colon Biopsy (TRANSVERSE POLYP) C Colon Biopsy (DESCENDING POLYP) Procedures: Komal/Micro L4/3 Age/ Patient Sex Location Account Attending Physician Vero Sadler 74/F [id number] Kal Molina MD SPEC NUM: [id number] RECD: 01/22/25 STATUS: YUMI RUSSELL NUM: [id number] BUDDY: 01/22/[address]: Kal Molina MD ENTERED: 01/22/[address] [facility] [address]: SPEC TYPE: Surgical DEPT: S ENTERED BY: [id number] RECV BY: [id number] ORDERED: HE/12, Gross/Micro L4/3 ORDERED: HE/12, Gross/Micro [...] mucosa with no significant pathologic change. Specimen: [id number] Received: 01/22/25 Status: YUMI Eduardo Num: [id number] Spec Type: Surgical Subm Dr: Kal Molina MD Tissues: A Colon Biopsy (ASCENDING POLYP) B Colon Biopsy (TRANSVERSE POLYP) C Colon Biopsy (DESCENDING POLYP) Procedures: HE/12, Gross/Micro L4/3 Patient: Vero Sadler [id number] (Continued) Specimen: [id number] Received: 01/22/25 (Continued) Signed (signature on file) Vladimir Rivera MD 01/24/25906 Specimen: [id number] Received: 01/22/25 Status: YUMI Russell Num: [id number] Spec Type: Surgical Subm Dr: Kal Molina MD Tissues: A Colon Biopsy (ASCENDING POLYP) B Colon Biopsy (TRANSVERSE POLYP) C Colon Biopsy (DESCENDING POLYP) Procedures: GRETA/Jagruti, Gross/Jesús L4/3 Patient: Vero Sadler [id number] (Continued) Specimen: [id number] Received: 01/22/25 (Continued) Clinical Information History of colon polyps Gross Description Part A is received in formalin labeled with the patient's date of , and [place], ascending polyp is a whitehead-moore, focally erythematous, friable, 0.3 cm in greatest dimension polypoid fragment. The specimen is entirely submitted in a single cassette. (1, ns, [id number] A) Part B is received in formalin labeled with the patient's date of , and [place], transverse polyp is a whitehead-moore, focally erythematous, friable, 0.2 cm in greatest dimension polypoid fragment. The specimen is entirely submitted in a single cassette. (1, ns, [id number] [id number] B) Part C is received in formalin labeled with the patient's date of , and [place], descending polyp are 2 whitehead-moore, focally erythematous, friable, 0.2 and 0.3 cm in greatest dimension polypoid fragments. The specimen is entirely submitted in a single cassette. (1, ns, [id number] C) CPT Codes 28123 x 3 Specimen: [id number] Received: 01/22/25 Status: YUMI Russell Num: [id number] Spec Type: Surgical Subm Dr: Kal Molina MD Tissues: A Colon Biopsy (ASCENDING POLYP) B Colon Biopsy (TRANSVERSE POLYP) C Colon Biopsy (DESCENDING POLYP) Procedures: , Gross/Micro L4/3 Patient: Vero Sadler [id number] (Continued) (more content not included)...[facility] Physician GroupUofl [facility] Onlyon 84-69-9038Orlhrp [id number] Vero Sadler 1950 F Date Provider Department [place] 11/10/2024 [facility] AR[facility] Family History Problem Relation Age of Onset Other Mother Coronary artery disease Mother Other Mother Other Mother Other Father Hypertension Father Hyperlipidemia Father Other Daughter Family Status - Relation Status Age at Mother Father DaughterNormalUniversity [facility] HospitalOffice [place] 10-24-2024 Follow-up [id number] Vero Sadler 1950 F Date Provider Department [place] 10/24/2024 JOSEY ARNOLD [facility] Family History Problem Relation Age of Onset Other Mother Coronary artery disease Mother Other Mother Other Mother Other Father Hypertension Father Hyperlipidemia Father Other Daughter Family Status - Relation Status Age at Mother Father Daughter Level of Service:20155 HI OFFICE/OUTPATIENT ESTABLISHED LOW MDM 20 [facility] HospitalAlbumin [Mass/volume] in Serum or Plasma by Bromocresol green (BCG) dye binding methoOrdered By: Lizette Schaffer on 09-22-2024 Albumin BCG dye [Mass/Vol]3.8 g/dL3.5-5.7FOhioHealth Grove City Methodist Hospital Appearance of UrineOrdered By: Lizette Schaffer on 80-69-5473Yfmeyigtbc (U)Cloudy Critically abnormalCleParkview Health Bryan HospitalComment on above:Order Comment: Name Collection Type:: Clean-Voided MidstreamPerformed By: #### SPE, JOSE,URINE #### [facility] , #### ADDONUAPLUS, CUU, PROCRERAT #### [facility] [address] [place] [address] USABacteria [Presence] in Urine by AutomatedOrdered By: Lizette Schaffer on 82-42-4690Xcdjiyud Auto Ql (U)1+ [HPF]HighNone SeenRiverview Health InstituteBilirubin Test strip Ql (U)Ordered By: Lizette Schaffer on 09-22-2024 Bilirubin Ql (U)NegativeNegativeRiverview Health InstituteCalcium [Mass/volume] in Serum or PlasmaOrdered By: Lizette Schaffer on 08-62-9178Jukrvac [Mass/Vol]8.9 mg/dLNormal8.6-10.3FOhioHealth Grove City Methodist HospitalComment on above:Performed By: #### JOSE SERUM, SPE W INTERPRET, KAPPA #### [facility] , #### FE and TIBC, MG, TAYLOR, RENAL, PTH, [id number], CBCNO, URIC #### [facility] [address] [place] [address] USACarbon dioxide, total [Moles/volume] in Serum or Plasma Ordered By: Lizette Schaffer on 96-39-5860PS0 [Moles/Vol]24.4 mmol/GHcglhx58.0-31.0 River[facility] InstituteComment on above:Performed By: #### JOSE SERUM, SPE W INTERPRET, KAPPA #### [facility] , #### FE and TIBC, MG, TAYLOR, RENAL, PTH, [id number], CBCNO, URIC #### [facility] [address] [place] [id number] USAChloride [Moles/volume] in Serum or PlasmaOrdered By: Lizette Schaffer on 14-29-4585Krbxfywr [Moles/Vol]109 mmol/WAsxr24-117DpwbxdfiwRiverview Health InstituteComment on above:Performed By: #### JOSE SERUM, SPE W INTERPRET, KAPPA #### [facility] , #### FE and TIBC, MG, TAYLOR, RENAL, PTH, [id number], CBCNO, URIC #### [place] [id number] USAColor of Urine by AutoOrdered By: Lizette Schaffer on 89-41-4087Vpcqn (U)YellowNormalYTrinity Health System Twin City Medical CenterComment on above:Order Comment: Name Collection Type:: Clean-Voided MidstreamPerformed By: #### SPE, JOSE,URINE #### [facility] , #### ADDONUAPLUS, CUU, PROCRERAT #### [facility] [address] [place], [place] [address] USACreatinine [Mass/volume] in Serum or PlasmaOrdered By: Lizette Schaffer on 20-53-0662Buzptrrypw [Mass/Vol]2.25 mg/dLHigh0.60-1.20Riverview Health InstituteComment on above:Performed By: #### JOSE SERUM, SPE W INTERPRET, KAPPA #### [facility] , #### FE and TIBC, MG, TAYLOR, RENAL, PTH, [id number], CBCNO, URIC #### [place] [id number] USACreatinine [Mass/volume] in UrineOrdered By: Lizette Schaffer on 43-83-0650Upuknkvllh (U) [Mass/Vol]153.00 mg/dLRiverview Health InstituteComment on above:No reference range establishedDipstick and Microscopicon 72-88-4855Gwxnxhpw,Urine1+ [HPF]NormalNone SeenThe Critical Access Hospital Physician Group Comment on above:Order Comment: Name Collection Type:: Clean-Voided Midstream Performed By: #### SPE, JOSE,URINE #### [facility] , #### ADDONUAPLUS, CUU, PROCRERAT #### [facility] [address] [place] [address] USABilirubin,UrineNegativeNormalNegativeCleveland Clinic Weston Hospital Physician GroupComment on above:Order Comment: Name Collection Type:: Clean- Voided MidstreamPerformed By: #### SPE, JOSE,URINE #### [facility] , #### ADDONUAPLUS, CUU, PROCRERAT #### [facility] [address] [place] [address] USAGlucose Ql (U)NormalNormalNormalThe Critical Access Hospital Physician GroupComment on above:Order Comment: Name Collection Type:: Clean-Voided MidstreamPerformed By: #### SPE, JOSE,URINE #### [facility] , #### ADDONUAPLUS, CUU, PROCRERAT #### [facility] [address] [place] [address] USAHyaline Casts,Rnizc4-4Ktpuel6-0Xfb [facility] Hospital Physician GroupComment on above:Order Comment: Name Collection Type:: Clean-Voided MidstreamPerformed By: #### SPE, JOSE,URINE #### [facility] , #### ADDONUAPLUS, CUU, PROCRERAT #### [facility] [address] [place] [address] USAMucus,UrineRareNormalThe Critical Access Hospital Physician GroupComment on above:Order Comment: Name Collection Type:: Clean-Voided MidstreamResult Comment: PERFORMED BY: [place] [address] PATHOLOGIST ACADEMIC HOSPITALIST CASSIDY CASIANO M.D.Performed By: #### SPE, JOSE,URINE #### [facility] , #### ADDONUAPLUS, CUU, PROCRERAT #### [place] [address] USANitrite,UrineNegativeNormalNegativeThe Critical Access Hospital Physician GroupComment on above:Order Comment: Name Collection Type:: Clean-Voided MidstreamPerformed By: #### SPE, JOSE,URINE #### [facility] , #### ADDONUAPLUS, CUU, PROCRERAT #### [place] [address] USAOccult Blood,UrineNegativeNormalNegativeThe Critical Access Hospital Physician GroupComment on above:Order Comment: Name Collection Type:: Clean- Voided MidstreamPerformed By: #### SPE, JOSE,URINE #### [facility] , #### ADDONUAPLUS, CUU, PROCRERAT #### [place] [address] USAProtein,UrineNegativeNormalNegativeThe Critical Access Hospital Physician GroupComment on above:Order Comment: Name Collection Type:: Clean-Voided MidstreamPerformed By: #### SPE, JOSE,URINE #### [facility] , #### ADDONUAPLUS, CUU, PROCRERAT #### [place] [address] USARBC,Eyjij9-7Rpxphu0-1Yqg [facility] Physician GroupComment on above:Order Comment: Name Collection Type:: Clean-Voided MidstreamPerformed By: #### SPE, JOSE,URINE #### [facility] , #### ADDONUAPLUS, CUU, PROCRERAT #### [place] [address] USASpecificy [place],Urine1.648Ooacmb4.001-1.030The Critical Access Hospital Physician GroupComment on above:Order Comment: Name Collection Type:: Clean- Voided MidstreamPerformed By: #### SPE, JOSE,URINE #### [facility] , #### ADDONUAPLUS, CUU, PROCRERAT #### [facility] [address] [place] [address] USASquamous Epithelial Cell,Rmqtg3-3Nwamrn5-8Uci [facility] Hospital Physician GroupComment on above:Order Comment: Name Collection Type:: Clean- Voided MidstreamPerformed By: #### SPE, JOSE,URINE #### [facility] , #### ADDONUAPLUS, CUU, PROCRERAT #### [place] [address] USAUrobilinogen,UrineNormalNormalNormalThe Critical Access Hospital Physician GroupComment on above:Order Comment: Name Collection Type:: Clean- Voided MidstreamPerformed By: #### SPE, JOSE,URINE #### [facility] , #### ADDONUAPLUS, CUU, PROCRERAT #### [facility] [address] [place] [address] USAWBC,Ttysx7-0Kscfgu3-2Spy [facility] Hospital Physician GroupComment on above:Order Comment: Name Collection Type:: Clean-Voided MidstreamPerformed By: #### SPE, JOSE,URINE #### [facility] , #### ADDONUAPLUS, CUU, PROCRERAT #### [facility] [address] [place] [address] USAEpithelial cells.squamous [#/area] in Urine sediment by Automated countOrdered By: Lizette Schaffer on 14-27-5496Oimhcyvlle cells.squamous Auto (Urine sed) [#/Area]5-9 [HPF]High0-2FOhioHealth Grove City Methodist Hospital Erythrocyte distribution width [Ratio] by Automated countOrdered By: Lizette Schaffer on 24-86-2196Uaabmissqek distribution width (RBC) [Ratio]15.0 %Lywbtg26.9-15.3 [facility] InstituteComment on above:Performed By: #### JOSE SERUM, SPE W INTERPRET, KAPPA #### [facility] , #### FE and TIBC, MG, TAYLOR, RENAL, PTH, [id number], CBCNO, URIC #### [facility] [address] [place] [id number] USAErythrocytes [#/area] in Urine sediment by Automated count Ordered By: Lizette Schaffer on 02-95-9532OEK Auto (Urine sed) [#/Area]1-2 [HPF]0-4 [facility] Health InstituteErythrocytes [#/volume] in Blood by Automated countOrdered By: Lizette Schaffer on 25-88-9749SWV (Bld) [#/Vol]4.26 10*6/uLNormal 3.60-5.00Riverview Health InstituteComment on above:Performed By: #### JOSE SERUM, SPE W INTERPRET, KAPPA #### [facility] , #### FE and TIBC, MG, TAYLOR, RENAL, PTH, [id number], CBCNO, URIC #### [facility] [address] [place] [phone] USAFerritin [Mass/volume] in Serum or PlasmaOrdered By: Lizette Schaffer on 12-13-8918Tmwjcvlw [Mass/Vol]73.7 ng/cUZspznn58.0-306.8Riverview Health InstituteComment on above:Performed By: #### SPE, JOSE,URINE #### [facility] , #### ADDONUAPLUS, CUU, PROCRERAT #### [facility] [address] [place] [id number] USAFree K+L LT Chains, Qn, Son 56-01-5883Nvdb [place] Light Chains, S46.0 mg/LNormal3.3-19.4The Critical Access Hospital Physician GroupComment on above: Performed By: #### SPE, JOSE,URINE #### [facility] , #### ADDONUAPLUS, CUU, PROCRERAT #### [facility] [address] [place] [address] USAFree Lambda Light Chains, S25.9 mg/LNormal5.7-26.3The Critical Access Hospital Physician GroupComment on above:Performed By: #### SPE, JOSE,URINE #### [facility] , #### ADDONUAPLUS, CUU, PROCRERAT #### [facility] [address] [place] [address] USAKappa/Lambda Ratio, S1.43Cyfjhc8.26-1.65The Critical Access Hospital Physician GroupComment on above:Result Comment: Performed at: - [facility] [id number] Grooving Machine Operator: Jozef Medina PhD, Phone: [phone] PERFORMED BY: [place] [address] PATHOLOGIST ACADEMIC HOSPITALIST CASSIDY CASIANO M.D.Performed By: #### SPE, JOSE,URINE #### [facility] , #### ADDONUAPLUS, CUU, PROCRERAT #### [facility] [address] [place] [address] USAGlucose [Mass/volume] in Serum or PlasmaOrdered By: Lizette Schaffer on 35-99-3582Psuibew [Mass/Vol]95 mg/tLQibnkh35-514NfnwhqayiRiverview Health InstituteComment on above:ADA recommended reference rangeRandom Glucose Reference [...] FE and TIBC, MG, TAYLOR, RENAL, PTH, [id number], CBCNO, URIC #### [facility] [address] [place] [address] USAGlucose [Mass/volume] in Urine by Test stripOrdered By: Lizette Schaffer on 93-29-3538Amcqslb Test strip (U) [Mass/Vol]Normal mg/dLNormal [facility] InstituteHematocrit [Volume Fraction] of Blood by Automated countOrdered By: Lizette Schaffer on 75-12-4013Mszhniongy (Bld) [Volume fraction]37.9 %Tvaixr18.0-46.4FOhioHealth Grove City Methodist HospitalComment on above: Performed By: #### JOSE SERUM, SPE W INTERPRET, KAPPA #### [facility] , #### FE and TIBC, MG, TAYLOR, RENAL, PTH, [id number], CBCNO, URIC #### [facility] [address] [place] [phone] USAHemoglobin Test strip Ql (U)Ordered By: Lizette Schaffer on 75-46-9555Zwxjsepien Ql (U)NegativeNegativeRiverview Health Institute Hemoglobin [Mass/volume] in BloodOrdered By: Lizette Connerdir on 77-23-1191Zmepcftztj (Bld) [Mass/Vol]12.3 g/xSEwdnyk49.8-15.4FOhioHealth Grove City Methodist Hospital Comment on above:Performed By: #### JOSE SERUM, SPE W INTERPRET, KAPPA #### [facility] , #### FE and TIBC, MG, TAYLOR, RENAL, PTH, [id number], CBCNO, URIC #### [facility] [address] [place] [address] USAHemogram CBC Without Diffon 07-54-3366Waaf Corpuscular HGB Conc32.5 g/dVDfphzc66.0-35.0The Critical Access Hospital Physician GroupComment on above: Performed By: #### JOSE SERUM, SPE W INTERPRET, KAPPA #### [facility] , #### FE and TIBC, MG, TAYLOR, RENAL, PTH, [id number], CBCNO, URIC #### [facility] [address] [place] [address] USAWhite Blood Count6.6 [CFU]/mLNormal3.8-11.6The Critical Access Hospital Physician GroupComment on above:Performed By: #### JOSE SERUM, SPE W INTERPRET, KAPPA #### [facility] , #### FE and TIBC, MG, TAYLOR, RENAL, PTH, [id number], CBCNO, URIC #### [facility] [address] [place] [address] USAHyaline casts [#/area] in Urine sediment by Automated countOrdered By: Lizette Schaffer on 09-70-4520Vpijjfm casts Auto (Urine sed) [#/Area]0-8 [LPF]0-8R[facility]view Health InstituteImmunofixation for Urine Ordered By: Lizette Schaffer on 70-37-6991Efuttpphihxgrw Immunofixation (U) [Interp] Comment:.[facility] Health InstituteComment on above:Presence of monoclonal protein is unclear at this time. Suggestrepeat in 3 to 6 months if clinically indicated.Performed at: [facility] [address] [place], [place] [id number] Director: Jozef Medina PhD, Phone: [phone] Immunofixation, (JOSE), Urineon 37-74-6409Gbynjhdtuwabdg, (JOSE), UrineComment: Normal.The Critical Access Hospital Physician GroupComment on above:Result Comment: Presence of monoclonal protein is unclear at this time. Suggest repeat in 3 to 6 months if clinically indicated. Performed at: [facility] [place] [address] [place], [place] [id number] Grooving Machine Operator: Jozef Medina PhD, Phone: [phone] PERFORMED BY: [address] [place] [address] PATHOLOGIST ACADEMIC HOSPITALIST CASSIDY CASIANO M.D.Performed By: #### SPE, JOSE,URINE #### [facility] , #### ADDONUAPLUS, CUU, PROCRERAT #### [facility] [address] [place] [address] USAImmunofixation,Serumon 89-68-8487Rqmdjnrbejkffa, Serum CommentNormal.The Critical Access Hospital Physician GroupComment on above:Result Comment: No monoclonality detected.Performed By: #### SPE, JOSE,URINE #### [facility] , #### ADDONUAPLUS, CUU, PROCRERAT #### [facility] [address] [place] [address] USAImmunoglobulin A, Awjtg676 mg/yYFaqgjs99-479Zva [facility] Physician [facility] CenterComment on above:Performed By: #### SPE, JOSE,URINE #### [facility] , #### ADDONUAPLUS, CUU, PROCRERAT #### [facility] [address] [place] [address] USAImmunoglobulin G1018 mg/dYNtuenj697-1181Cny Critical Access Hospital Physician GroupComment on above:Performed By: #### SPE, JOSE,URINE #### [facility] , #### ADDONUAPLUS, CUU, PROCRERAT #### [facility] [address] [place] [address] USAImmunoglobulin M, Serum91 mg/oINcronk68-608Wbu [facility] Physician [facility] Medical CenterComment on above:Result Comment: Performed at: [facility] [id number] Grooving Machine Operator: Jozef Medina PhD, Phone: [phone] By: #### SPE, JOSE,URINE #### [facility] , #### ADDONUAPLUS, CUU, PROCRERAT #### [facility] [address] [place] [address] USAIron [Mass/volume] in Serum or PlasmaOrdered By: Lizette Schaffer on 96-83-3738Hvdi [Mass/Vol]54 ug/hTLfrjgp17-332KibkatpikRiverview Health InstituteComment on above:Performed By: #### SPE, JOSE,URINE #### [facility] , #### ADDONUAPLUS, CUU, PROCRERAT #### [facility] [address] [place] [address] USAIron and TIBC Profileon 09-22-2024% Iron Hmxjrwclax56.0 % Sorjtc76-59Xvc Critical Access Hospital Physician GroupComment on above:Performed By: #### SPE, JOSE,URINE #### [facility] , #### ADDONUAPLUS, CUU, PROCRERAT #### [facility] [address] [place] [address] USATotal Iron Binding Tlktciwu358 ug/yECjl574-746Szs Critical Access Hospital Physician GroupComment on above:Performed By: #### SPE, JOSE,URINE #### [facility] , #### ADDONUAPLUS, CUU, PROCRERAT #### [facility] [address] [place] [address] USAKetones [Presence] in Urine by Test stripOrdered By: Lizette Schaffer on 50-09-9962Yankynb Ql (U)NegativeNormalNegSamaritan HospitalComment on above:Order Comment: Name Collection Type:: Clean- Voided MidstreamPerformed By: #### SPE, JOSE,URINE #### [facility] , #### ADDONUAPLUS, CUU, PROCRERAT #### [place] [address] USALeukocyte esterase [Presence] in Urine by Test strip Ordered By: Lizette Schaffer on 97-92-4076Fpvlzhsug esterase Test strip Ql (U)1+ NormalNegSamaritan HospitalComment on above:Order Comment: Name Collection Type:: Clean-Voided MidstreamPerformed By: #### SPE, JOSE,URINE #### [facility] , #### ADDONUAPLUS, CUU, PROCRERAT #### [address] [place] [address] USALeukocytes [#/area] in Urine sediment by Automated count Ordered By: Lizette Connerdir on 96-15-3105CTN Auto (Urine sed) [#/Area]5-9 [HPF]High 0-4FOhioHealth Grove City Methodist HospitalLeukocytes [#/volume] corrected for nucleated erythrocytes in Blood by Automated counOrdered By: Lizette Sarbjit on 42-68-7180LOT corrected for nucl RBC Auto (Bld) [#/Vol]6.6 10*3/uL3.8-11.6 [facility] [Entitic mass] by Automated countOrdered By: Lizette Sarbjit on 93-01-1609YTE (RBC) [Entitic mass]28.9 ikWdofab55.7-34.3 [facility] InstituteComment on above:Performed By: #### JOSE SERUM, SPE W INTERPRET, KAPPA #### [facility] , #### FE and TIBC, MG, TAYLOR, RENAL, PTH, [id number], CBCNO, URIC #### [facility] [address] [place], [place] [address] [facility] Auto (RBC) [Mass/Vol]Ordered By: Lizette Connerdir on 41-55-1555JMRK (RBC) [Mass/Vol]32.5 g/dL32.0-35.0R[facility]view Health InstituteMCV [Entitic volume] by Automated countOrdered By: Lizette Sarbjit on 60-13-3140XDH (RBC) [Entitic vol]89.0 uYZfexts72-068WchnawzejRiverview Health InstituteComment on above:Performed By: #### JOSE SERUM, SPE W INTERPRET, KAPPA #### [facility] , #### FE and TIBC, MG, TAYLOR, RENAL, PTH, [id number], CBCNO, URIC #### [facility] [address] [place], [place] [address] USAMagnesium [Mass/volume] in Serum or PlasmaOrdered By: Lizette Sarbjit on 99-36-3164Wgyvdoeow [Mass/Vol]1.7 mg/dLLow1.9-2.7FOhioHealth Grove City Methodist HospitalComment on above:Performed By: #### SPE, JOSE,URINE #### [facility] , #### ADDONUAPLUS, CUU, PROCRERAT #### [facility] [address] [place] [address] USAMucus [Presence] in Urine by AutomatedOrdered By: Lizette Schaffer on 16-86-2128Qzjjw Auto Ql (U)Rare [LPF][facility] Nitrite Test strip Ql (U)Ordered By: Lizette Schaffer on 78-58-2743Qkzfbgr Ql (U) NegativeNegativeRiverview Health InstituteNo Panel InformationOrdered By: Lizette Schaffer on 76-97-8394Vmlpoum Electrophoresis M-SpikeNot observed g/dLNot ObservedRiverview Health InstituteProtein Electrophoresis NoteComment. [facility] InstituteComment on above:Protein electrophoresis scan will follow via computer,mail, or windows support engineer delivery.Performed at: [facility] [address] [id number] Director: Jozef Medina PhD, Phone: [phone] GFR (CKD-EPI)22.480 mL/MinRiverview Health InstitutePharmacy Creatinine Clearance (ChemN/AFOhioHealth Grove City Methodist Hospital Protein Electrophoresis InterpretComment.[facility] Comment on above:Faint band in gamma region suspicious for monoclonalimmunoglobulin. This band may represent a benign spike asseen in older people or could be a paraprotein as seen inMultiple Myeloma, Waldenstrom's Ma croglobulinemia orLymphoma. Depending on clinical circumstances, furtherdiagnostic studies may include serum immunofixation orserum free light chain quantitation.Performed at: [facility] [address] [id number] Director: Jozef Medina PhD, Phone: [phone].intact [Mass/volume] in Serum or PlasmaOrdered By: Lizette Schaffer on 09-22-2024 Parathyrin.intact [Mass/Vol]68.7 pg/nB35-52WojmmctabRiverview Health Institute Parathyroid Hormone Intacton 50-69-4480Dpmvztbbhuj Hormone Bnsfac82.7 pg/mL Lrgodb78-96Vlu Critical Access Hospital Physician GroupComment on above:Result Comment: PERFORMED BY: [place] [id number] PATHOLOGIST ACADEMIC HOSPITALIST CASSIDY CASIANO M.D.Performed By: #### JOSE SERUM, SPE W INTERPRET, KAPPA #### [facility] , #### FE and TIBC, MG, TAYLOR, RENAL, PTH, [id number], CBCNO, URIC #### [facility] [address] [place] [address] USAPhosphate [Mass/volume] in Serum or PlasmaOrdered By: Lizette Sarbjit on 68-29-1491Scbcdvais [Mass/Vol]3.6 mg/dLNormal2.5-4.5FOhioHealth Grove City Methodist HospitalComment on above:Performed By: #### JOSE SERUM, SPE W INTERPRET, KAPPA #### [facility] , #### FE and TIBC, MG, TAYLOR, RENAL, PTH, [id number], CBCNO, URIC #### [facility] [address] [place] [address] USAPlatelet mean volume [Entitic volume] in Blood by Automated countOrdered By: Lizette Sarbjit on 07-16-5965Hatdcocx mean volume (Bld) [Entitic vol]8.1 fLNormal6.3-10.7FOhioHealth Grove City Methodist HospitalComment on above:Result Comment: PERFORMED BY: [address] [address] PATHOLOGIST ACADEMIC HOSPITALIST CASSIDY CASIANO M.D.Performed By: #### JOSE SERUM, SPE W INTERPRET, KAPPA #### [facility] , #### FE and TIBC, MG, TAYLOR, RENAL, PTH, [id number], CBCNO, URIC #### [facility] [address] [place] [address] USAPlatelets [#/volume] in Blood by Automated countOrdered By: Lizette Sarbjit on 21-55-7182Imiohyusz (Bld) [#/Vol]212 10*3/oBPbqorg676-920 Riverview Health InstituteComment on above:Performed By: #### JOSE SERUM, SPE W INTERPRET, KAPPA #### [facility] , #### FE and TIBC, MG, TAYLOR, RENAL, PTH, [id number], CBCNO, URIC #### [place] [address] USAPotassium [Moles/volume] in Serum or PlasmaOrdered By: Lizette Schaffer on 69-13-0103Iyvpenimz [Moles/Vol]5.7 mmol/LHigh3.5-5.1FOhioHealth Grove City Methodist HospitalComment on above:Performed By: #### JOSE SERUM, SPE W INTERPRET, KAPPA #### [facility] , #### FE and TIBC, MG, TAYLOR, RENAL, PTH, [id number], CBCNO, URIC #### [facility] [address] [place], [place] [address] USAProt Electrophoresis w/Interpon 65-87-7505Pidvxlr [Mass/Vol]3.2 g/dLNormal2.9-4.4The Critical Access Hospital Physician GroupComment on above: Performed By: #### SPE, JOSE,URINE #### [facility] , #### ADDONUAPLUS, CUU, PROCRERAT #### [place] [id number] USAAlbumin/Globulin [Mass ratio]1.1 {ratio}Normal0.7-1.7The Critical Access Hospital Physician GroupComment on above:Performed By: #### SPE, JOSE,URINE #### [facility] , #### ADDONUAPLUS, CUU, PROCRERAT #### [facility] [address] [place], [place] [address] TZJVaotm-2-Ghsqomms9.3 g/dLNormal0.0-0.4The Critical Access Hospital Physician GroupComment on above:Performed By: #### SPE, JOSE,URINE #### [facility] , #### ADDONUAPLUS, CUU, PROCRERAT #### [place] [address] JGMWjkcr-9-Pzlkxcdw6.8 g/dLNormal0.4-1.0The Critical Access Hospital Physician GroupComment on above:Performed By: #### SPE, JOSE,URINE #### [facility] , #### ADDONUAPLUS, CUU, PROCRERAT #### [facility] [address] [place] [address] USABeta Globulin0.9 g/dLNormal0.7-1.3The Critical Access Hospital Physician GroupComment on above:Performed By: #### SPE, JOSE,URINE #### [facility] , #### ADDONUAPLUS, CUU, PROCRERAT #### [facility] [address] [place] [address] USAGamma Globulin0.9 g/dLNormal0.4-1.8The Critical Access Hospital Physician GroupComment on above:Performed By: #### SPE, JOSE,URINE #### [facility] , #### ADDONUAPLUS, CUU, PROCRERAT #### [place] [address] USAGlobulin (S) [Mass/Vol]2.9 g/dLNormal2.2-3.9The Critical Access Hospital Physician GroupComment on above:Performed By: #### SPE, JOSE,URINE #### [facility] , #### ADDONUAPLUS, CUU, PROCRERAT #### [facility] [address] [place] [address] USAM-SpikeComment:NormalNot ObservedThe Critical Access Hospital Physician GroupComment on above:Result Comment: SPE shows an asymmetrical gamma.Performed By: #### SPE, JOSE,URINE #### [facility] , #### ADDONUAPLUS, CUU, PROCRERAT #### [facility] [address] [place] [address] USAProtein [Mass/Vol]6.1 g/dLNormal6.0-8.5The Critical Access Hospital Physician GroupComment on above:Performed By: #### SPE, JOSE,URINE #### [facility] , #### ADDONUAPLUS, CUU, PROCRERAT #### [place] [address] USASPE-InterpretationCommentNormal.The Critical Access Hospital Physician GroupComment on above:Result Comment: Faint band in gamma region suspicious for monoclonal immunoglobulin. This band may represent a benign spike as seen in older people or could be a paraprotein as seen in Multiple Myeloma, Waldenstrom's Macroglobulinemia or Lymphoma. Depending on clinical circumstances, further diagnostic studies may include serum immunofixation or serum free light chain quantitation. Performed at: [facility] [id number] Grooving Machine Operator: Jozef Medina PhD, Phone: [phone] By: #### SPE, JOSE,URINE #### [facility] , #### ADDONUAPLUS, CUU, PROCRERAT #### [place] [address] USASPE-NoteCommentNormal.The Critical Access Hospital Physician GroupComment on above:Result Comment: Protein electrophoresis scan will follow via computer, mail, or windows support engineer delivery.Performed By: #### SPE, JOSE,URINE #### [facility] , #### ADDONUAPLUS, CUU, PROCRERAT #### [facility] [address] [place] [address] USAProtein Creat Ratio Ur Randomon 37-22-0252Ukisffkdqg, Urine (Random)153.00 mg/dLNormalThe Critical Access Hospital Physician GroupComment on above: Result Comment: No reference range establishedPerformed By: #### SPE, JOSE,URINE #### [facility] , #### ADDONUAPLUS, CUU, PROCRERAT #### [place] [address] USAUrine Protein/Creatinine Jvxlq429 mg/g{Cre}Normal0-200The Critical Access Hospital Physician GroupComment on above:Result Comment: PERFORMED BY: [place] [address] PATHOLOGIST ACADEMIC HOSPITALIST CASSIDY CASIANO M.D.Performed By: #### SPE, JOSE,URINE #### [facility] , #### ADDONUAPLUS, CUU, PROCRERAT #### [place] [address] USAProtein Electrophoresis, Serumon 09-22-2024 Hlqxg-0-Nciqutva7.3 g/dLNormal0.0-0.4The Critical Access Hospital Physician GroupComment on above:Performed By: #### SPE, JOSE,URINE #### [facility] , #### ADDONUAPLUS, CUU, PROCRERAT #### [place] [address] QZVPoful-1-Kfnmeylc7.8 g/dLNormal0.4-1.0The Critical Access Hospital Physician GroupComment on above:Performed By: #### SPE, JOSE,URINE #### [facility] , #### ADDONUAPLUS, CUU, PROCRERAT #### [place] [address] USABeta Globulin0.9 g/dLNormal0.7-1.3The Critical Access Hospital Physician GroupComment on above:Performed By: #### SPE, JOSE,URINE #### [facility] , #### ADDONUAPLUS, CUU, PROCRERAT #### [place] [address] USAGamma Globulin0.9 g/dLNormal0.4-1.8The Critical Access Hospital Physician GroupComment on above:Performed By: #### SPE, JOSE,URINE #### [facility] , #### ADDONUAPLUS, CUU, PROCRERAT #### [facility] [address] [place] [address] USAM-SpikeNot ObservedNormalNot ObservedThe Critical Access Hospital Physician GroupComment on above:Performed By: #### SPE, JOSE,URINE #### [facility] , #### ADDONUAPLUS, CUU, PROCRERAT #### [place] [address] USASPE-NoteCommentNormal.The Critical Access Hospital Physician GroupComment on above:Result Comment: Protein electrophoresis scan will follow via computer, mail, or windows support engineer delivery. Performed at: [facility] [id number] Grooving Machine Operator: Jozef Medina PhD, Phone: [phone] PERFORMED BY: [place] [address] PATHOLOGIST ACADEMIC HOSPITALIST CASSIDY CASIANO M.D.Performed By: #### SPE, JOSE,URINE #### [facility] , #### ADDONUAPLUS, CUU, PROCRERAT #### [place] [address] USAProtein Test strip (U) [Mass/Vol]Ordered By: Lizette Schaffer on 51-87-4254Vwdmvau (U) [Mass/Vol]NegativeNegativeRiverview Health InstituteProtein [Mass/volume] in UrineOrdered By: Lizette Schaffer on 32-24-7346Cbwluul (U) [Mass/Vol]16 mg/dLHigh0-9Riverview Health InstituteComment on above: Performed By: #### SPE, JOSE,URINE #### [facility] , #### ADDONUAPLUS, CUU, PROCRERAT #### [place] [address] USARenal Function Panelon 23-63-7173Rbncdap [Mass/Vol]3.8 g/dLNormal3.5-5.7The Critical Access Hospital Physician GroupComment on above:Performed By: #### JOSE SERUM, SPE W INTERPRET, KAPPA #### [facility] , #### FE and TIBC, MG, TAYLOR, RENAL, PTH, LKEM64ER, CBCNO, URIC #### [facility] [address] [place] [address] USAGFR/1.73 sq M.predicted MDRD (S/P/Bld) [Vol rate/Area] 22.480 mL/min/{1.73_m2}NormalThe Critical Access Hospital Physician GroupComment on above: Performed By: #### OJSE SERUM, SPE W INTERPRET, KAPPA #### [facility] , #### FE and TIBC, MG, TAYLOR, RENAL, PTH, [id number], CBCNO, URIC #### [facility] [address] [place] [address] USASerum free kappa light chain measurementOrdered By: Lizette Schaffer on 63-64-8339Lftawlcrrxxhde light chains.kappa.free (S) [Mass/Vol]46.0 mg/LHigh3.3-19.4FAvita Health System Ontario Hospitalerum globulin measurement (mass/volume)Ordered By: Lizette Schaffer on 04-15-7492Tflunfxs (S) [Mass/Vol]2.8 g/dLNormal2.2-3.9Riverview Health InstituteComment on above:Performed By: #### SPE, JOSE,URINE #### [facility] , #### ADDONUAPLUS, CUU, PROCRERAT #### [facility] [address] [place] [address] USASerum immunoglobulin free kappa light chains/immunoglobulin free lambda light chainsOrdered By: Lizette Schaffer on 75-13-8056Kfcsgamzvemzdm light chains.kappa.free/Immunoglobulin light chains.lambda.free (S) [Mass ratio]1.48Txvi1.26-1.65Riverview Health InstituteComment on above:Performed at: - [facility] [id number] Director: Jozef Medina PhD, Phone: [phone] or plasma IgA measurement (mass/volume)Ordered By: Lizette Sarbjit on 23-17-9227TgA [Mass/Vol]184 mg/rX27-563NcezznntwSelect Medical Cleveland Clinic Rehabilitation Hospital, Avonerum or plasma IgG measurement (mass/volume)Ordered By: Lizette Sarbjit on 67-58-6347UsU [Mass/Vol]1018 mg/bN233-7510BznaqcxhrSelect Medical [facility] Clinic Rehabilitation Hospital, Avonerum or plasma IgM measurement (mass/volume)Ordered By: Lizette Sarbjit on 30-83-7580DpG [Mass/Vol]91 mg/cS13-739 Riverview Health InstituteComment on above:Performed at: [facility] [employer] [id number] Director: Jozef Medina PhD, Phone: [phone] or plasma albumin measurement (mass/volume)Ordered By: Lizette Sarbjit on 34-14-0393Tpejuzx [Mass/Vol]3.2 g/dLNormal2.9-4.4FOhioHealth Grove City Methodist HospitalComment on above:Performed By: #### SPE, JOSE,URINE #### [facility] , #### ADDONUAPLUS, CUU, PROCRERAT #### [facility] [address] [place] [address] USASerum or plasma albumin/globulin mass ratioOrdered By: Lizette Sarbjit on 05-14-0305Oyvoisq/Globulin [Mass ratio]1.1 {ratio}Normal0.7-1.7 Riverview Health InstituteComment on above:Performed By: #### SPE, JOSE,URINE #### [facility] , #### ADDONUAPLUS, CUU, PROCRERAT #### [facility] [address] [place] [address] USASerum or plasma alpha 1 globulin measurement by electrophoresis (mass/volume)Ordered By: Lizette Sarbjit on 21-60-7816Xrviy 1 globulin Elph [Mass/Vol]0.3 g/dL0.0-0.4FAvita Health System Ontario Hospitalerum or plasma alpha 2 globulin measurement by electrophoresis (mass/volume)Ordered By: Lizette Schaffer on 83-67-6220Oygxr 2 globulin Elph [Mass/Vol]0.8 g/dL0.4-1.0 [facility], Avonerum or plasma anion gap determinationOrdered By: Lizette Schaffer on 17-58-6307Kfetb gap [Moles/Vol]10.3 mmol/LNormal6.0-15.0 Riverview Health InstituteComment on above:Performed By: #### JOSE SERUM, SPE W INTERPRET, KAPPA #### [facility] , #### FE and TIBC, MG, TAYLOR, RENAL, PTH, [id number], CBCNO, URIC #### [place] [address] USASerum or plasma beta globulin measurement by electrophoresis (mass/volume)Ordered By: Lizette Schaffer on 64-53-3469Capj globulin Elph [Mass/Vol]0.9 g/dL0.7-1.3FAvita Health System Ontario Hospitalerum or plasma gamma globulin measurement by electrophoresis (mass/volume)Ordered By: Lizette Schaffer on 16-52-7530Kqfac globulin Elph [Mass/Vol]0.9 g/dL0.4-1.8[facility], Avonerum or plasma immunoglobulin free lambda light chains measurement (mass/volume)Ordered By: Lizette Schaffer on 79-42-2471Bbxowmbzvkftkn light chains.lambda.free [Mass/Vol]25.9 mg/L5.7-26.3FAvita Health System Ontario Hospitalerum or plasma iron binding capacity measurement (mass/volume)Ordered By: Lizette Schaffer on 90-04-9379Jhog binding capacity [Mass/Vol]245 ug/yBHyv579-634 [facility], Avonerum or plasma iron saturation measurement (mass fraction)Ordered By: Lizette Schaffer on 33-04-4703Xtam saturation [Mass fraction]22.0 %20-50[facility], Avonerum total protein measurementOrdered By: Lizette Schaffer on 47-07-8163Fqjvjbv [Mass/Vol]6.0 g/dLNormal 6.0-8.5FOhioHealth Grove City Methodist HospitalComment on above:Performed By: #### SPE, JOSE,URINE #### [facility] , #### ADDONUAPLUS, CUU, PROCRERAT #### [facility] [address] [place] [address] USASodium [Moles/volume] in Serum or PlasmaOrdered By: Lizette Sarbjit on 05-29-4526Oaolfo [Moles/Vol]138 mmol/SMairpq944-822YeymrymetRiverview Health InstituteComment on above:Performed By: #### JOSE SERUM, SPE W INTERPRET, KAPPA #### [facility] , #### FE and TIBC, MG, TAYLOR, RENAL, PTH, VSYW56LC, CBCNO, URIC #### [facility] [address] [place] [address] USASpecific gravity Test strip (U) [Rel density]Ordered By: Lizette Sarbjit on 17-33-1875Xfbtjeph gravity (U) [Rel density]1.0181.001-1.030 Riverview Health InstituteTransferrin [Mass/volume] in Serum or Plasma Ordered By: Lizette Sarbjit on 48-04-9910Jpodfvxmjwb [Mass/Vol]175 mg/xFRem491-805 [facility] InstituteComment on above:Performed By: #### SPE, JOSE,URINE #### [facility] , #### ADDONUAPLUS, CUU, PROCRERAT #### [facility] [address] [place] [address] USAUrate [Mass/volume] in Serum or PlasmaOrdered By: Lizette Sarbjit on 46-81-0536Zpqmi [Mass/Vol]7.9 mg/dLHigh2.3-6.6FOhioHealth Grove City Methodist HospitalComment on above:Performed By: #### SPE, JOSE,URINE #### [facility] , #### ADDONUAPLUS, CUU, PROCRERAT #### [facility] [address] [place] [address] USAUrea nitrogen [Mass/volume] in Serum or PlasmaOrdered By: Lizette Schaffer on 38-29-0813Moeh nitrogen [Mass/Vol]40 mg/dLHigh7-25Riverview Health InstituteComment on above:Performed By: #### JOSE SERUM, SPE W INTERPRET, KAPPA #### [facility] , #### FE and TIBC, MG, TAYLOR, RENAL, PTH, [id number], CBCNO, URIC #### [facility] [address] StreetUrine Cultureon 37-61-2122Xucpsakh identified Cx Nom (U) <9,000 colonies/ml mixed bacterial skin contaminants 2 Days PERFORMED BY: [place] [address] PATHOLOGIST ACADEMIC HOSPITALIST CASSIDY CASIANO M.D.NormalThe Critical Access Hospital Physician GroupComment on above: Performed By: #### SPE, JOSE,URINE #### [facility] , #### ADDONUAPLUS, CUU, PROCRERAT #### [facility] [address] StreetUrine cultureOrdered By: Lizette Schaffer on 44-50-0647Icfkeyrv identified Cx Nom (U)2 DaysRiverview Health InstituteUrine protein/creatinine ratioOrdered By: Lizette Schaffer on 73-61-6163Cnknqed/Creatinine (U) [Ratio]105 mg/g{Cre}0-200Riverview Health InstituteUrobilinogen Test strip (U) [Mass/Vol]Ordered By: Lizette Schaffer on 43-72-4818Hwnoiqjiitzl (U) [Mass/Vol]Normal mg/dLNormalRiverview Health InstituteVitamin D 25 Hydroxy Totalon 96-98-5204Rihswie D 25 Hydroxy Total29.7 ng/qBLsu57-585Eiw Critical Access Hospital Physician GroupComment on above:Result Comment: VITAMIN D STATUS 25(OH)VITAMIN D RANGE (ng/mL) Deficient <20 Insufficient 20 to <30 Sufficient 30 to 100 Reference: Jo MF,Jessica NC, Elizabeth LAMBERT, et al. Evaluation,treatment, and prevention of vitamin D deficiency; an Endocrine Society clinical practice guideline. JCEM. 2010; 96(7):1911-30. PERFORMED BY: [place] [address] PATHOLOGIST ACADEMIC HOSPITALIST CASSIDY CASIANO M.D.Performed By: #### SPE, JOSE,URINE #### [facility] , #### ADDONUAPLUS, CUU, PROCRERAT #### [facility] [address] [place] [id number] USAVitamin D+Metabolites [Mass/volume] in Serum or Plasma Ordered By: Lizette Schaffer on 32-16-7000Hqkxwvl D+Metabolites [Mass/Vol]29.7 ng/mL Lpw69-709WykdzmrhiRiverview Health InstituteComment on above:VITAMIN D STATUS 25(OH)VITAMIN D RANGE (ng/mL) Deficient <20 Insufficient 20 to <36Gdywukmkek48 to 100Reference: Jo MF,Jessica PENA, Elizabeth LAMBERT, et al. Evaluation,treatment, and prevention of vitamin D deficiency; an Endocrine Society clinical practice guideline. JCEM. 2010; 96(7):1911-30.pH of Urine by Test stripOrdered By: Lizette Schaffer on 37-41-5560rP (U)5.0 [pH]Normal5.0-9.0 [facility]view Health InstituteComment on above:Order Comment: Name Collection Type:: Clean-Voided MidstreamPerformed By: #### SPE, JOSE,URINE #### [facility] , #### ADDONUAPLUS, CUU, PROCRERAT #### [facility] [address] [place] [address] USAAmbulatory Visit Summaryon 37-60-0370Jbiebnffda Visit SummaryAmbulatory Visit Summary VERO SADLER :1950 [...] ROSETTA MENDEZ MD Where: [facility] [address], [address] [place] [address]- You Need to Schedule the Following Appointments [...] condition in w (more content not included)... NormalAdventhealther Medstar Harbor HospitalUrology Office/Clinic Noteon 14-34-0983Pxebnfh Office/Clinic NoteUrology Office/Clinic Note Chief Complaint f/u [...] with voice recognition artificial intelligence software, specifically Plurality, Sovi and or Mogad. Substitutions may have occurred due to the [...] or stones. 6. Aspirin long-term use (Z79.82: traveling representative (current) use of aspirin) ASA. No BTs. [...] No qualifying data Pr (more content not included)...[facility] Pike Medical CenterComment on above:Result Comment: Electronically Signed By: ROSETTA MENDEZ MD\.br\Date and Time Signed: 08/21/24 11:14 EDT\.br\Electronically Co- Signed By: Federica Luna\.br\Date and Time Co-Signed: 08/21/24 11:[address] Posterior fossa WO contraston 92-00-[place] [address] CT Scan Report Signed Patient: VERO SADLER MR#: [id number] : 1950 Acct:[id number] Age/Sex: 74 / F ADM Date: 08/15/24 Loc: CT Attending Dr: John Mathews M.D. Ordering Physician: John Mathews M.D. Date of Service: 08/15/24 Procedure(s): CT int auditory canals w/o con Accession Number(s): [id number] cc: Debbie Bhatia M.D. [address] [address] Patient Name: VERO SADLER MRN: [id number] date: 1950 Sex: F Assigned Patient Location: CT Current Patient Location: CT Accession/Order Number: [id number] Exam Date: 08/15/2024 14:47 Report Date: 08/15/2024 [...] Gutierrez M.D. 08/15/2024 2:51 PM Dictation Location: [place] [address] Electronically authenticated by: [id number] Y Date: 08/15/2024 14:51 Dictated By: Victor Manuel Gutierrez M.D. Signed By: 08/15/24 1454 DD/ 145 TD/TT: Tilesetter:LORIHRadiology, Radiologist, - 08/15/2024 [place] [address] CT Scan Report Signed Patient: VERO SADLER MR#: [id number] : 1950 Acct:[id number] Age/Sex: 74 / F ADM Date: 08/15/24 Loc: CT Attending Dr: John Mathews M.D. Ordering Physician: John Mathews M.D. Date of Service: 08/15/24 Procedure(s): CT int auditory canals w/o con Accession Number(s): [id number] cc: Debbie Bhatia M.D. The [place] [address] Patient Name: VERO SADLER MRN: [id number] date: 1950 Sex: F Assigned Patient Location: CT Current Patient Location: CT Accession/Order Number: [id number] Exam Date: 08/15/2024 14:47 Report Date: 08/15/2024 [...] Gutierrez M.D. 08/15/2024 2:51 PM Dictation Location: [place] [address] Electronically authenticated by: [id number] Y Date: 08/15/2024 14:51 Dictated By: Victor Manuel Gutierrez M.D. Signed By: 08/15/24 1454 DD/ 1451 TD/TT: Tilesetter: NOMS HealthcareRadiology Study observation (narrative)NOMS HealthcareCT Posterior fossa WO contrastOrdered By: Radiologist Radiology on 35-48-4346[facility] Work Phone: Orders Onlyon 52-35-4312Nzjfna [id number] Vero Sadler 1950 F Date Provider Department Center 08/11/2024 JOSEY ARNOLD [facility] Family History Problem Relation Age of Onset Other Mother Coronary artery disease Mother Other Mother Other Mother Other Father Hypertension Father Hyperlipidemia Father Other Daughter Family Status - Relation Status Age at Mother Father DaughterNormalUniversity of Memorial Hermann Northeast HospitalOrders [id number] Vero Sadler 1950 F Date Provider Department Center 08/11/2024 OLLIE HALLMAN [facility] Family History Problem Relation Age of Onset Other Mother Coronary artery disease Mother Other Mother Other Mother Other Father Hypertension Father Hyperlipidemia Father Other Daughter Family Status - Relation Status Age at Mother Father DaughterNormalUniversMiddletown HospitalNo Panel InformationOrdered By: Kal Molina on 32-15-7460Hngrqasxyxzsy Pathology TestSee commentRiverview Health InstituteComment on above:See report. Scanned copy available in EMR.Pathology Request for Lab Corpon 44-91-0529Vlbxbrxee Request for Lab [place] NormalThe Critical Access Hospital Physician GroupComment on above:Order Comment: GI SPECIMEN Result Comment: See report. Scanned copy available in EMR. PERFORMED BY: [place] [address] PATHOLOGIST ACADEMIC HOSPITALIST GENE BARRAGAN M.D.Performed By: #### PATH TO [facility] #### [place] [address] USAMain OR Intraoperative Recordon 34-78-5579Jjov OR Intraoperative RecordMain OR Intraoperative Record IntraOp Document Type FT Summary Primary Physician: ROSETTA MENDEZ MD Finalized Date/Time: 07/14/24 10:37:22 Pt. Name: VERO SADLER/Sex: 1950 Female Med Rec #: [id number] Physician: ROSETTA MENDEZ MD Financial #: [id number] Pt. 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 Last Modified By: Andrew Holly Ii, Alfons Ii F Letrondo, Alfons Ii F 07/13/24 09:22:03 07/13/24 09:22:03 07/13/24 09:22:03 Entry 4 Case Attendee Andrew Holly Ii Role Performed Transformer Stock Clerk - Primary Time In 07/13/24 08:50:00 [...] and tissue Entry 1 Skin Integrity Intact, [place], Warm, & Skin Abnormality No Dry Outcomes [...] in Stirrup Posit (more content not included)...Normal [facility] HospitalDischarge Instructionson 91-79-5733Rqascvrrw InstructionsDischarge Instructions VERO SADLER :1950 Visit Date:07/13/2024 [...] 12 hours Duration: 5 Days Pickup at [facility]/pharmacy #6177 New phenazopyridine (Pyridium 100 mg Tab) 1 Tablets By Mouth 3 times a day Duration: 3 Days Pickup at [facility]/pharmacy #6177 Unchanged albuterol (Albuterol (Eqv-ProAir HFA)) 2 [...] Mouth 2 times a day Pharmacy Information [facility]/pharmacy #[id number]: [address] [place], [place] [id number] [phone] Allergies Adhesive Bandage (Hives) Education Materials Common [...] yet, please contact Health Information Management at [phone] to get signed up today. Patient Name: VERO SADLER I have received this information and my questions have been answered. Patient/Pool Hand Name: Patient/Pool Hand Signature: Relationship to Patient: Witness Name/Signature: Date: (more content not included)...[facility] Pike Medical CenterComment on above:Result Comment: Electronically Signed By: Virgie BRODY, Patricia Szymanski\Date and Time Signed: 07/13/24 10:41 EDTMain OR PACU I Recordon [id number] OR PACU I RecordMain OR PACU I Record PACU Phase I Document Type FT Summary Primary Physician: ROSETTA MENDEZ MD Finalized Date/Time: 07/13/24 09:53:55 Pt. Name: VERO SADLER /Sex: 1950 Female Med Rec #: [id number] Physician: ROSETTA MENDEZ MD Financial #: [id number] Pt. Type: A Room/Bed: AS18 Admit/Disch: 07/13/24 [...] Signatures Signed By: Orin Richmond RN 07/13/24 09:53NormalAdventhealther [facility] HospitalMain OR PACU II Recordon [id number] OR PACU II RecordMain OR PACU II Record PACU Phase II Document Type FT Summary Primary Physician: ROSETTA MENDEZ MD Finalized Date/Time: 07/13/24 15:25:20 Pt. Name: SADLER VERO Tri/Sex: 1950 Female Med Rec #: [id number] Physician: ROSETTA MENDEZ MD Financial #: [id number] Pt. Type: A Room/Bed: [facility] Admit/Disch: 07/13/24 07:02:16 - 07/13/24 11:00:00 Institution: [...] Signatures Signed By: Patricia Garvin RN 07/13/24 15:25NoMartin Memorial HospitalMain OR Preoperative Recordon [id number] OR Preoperative RecordMain OR Preoperative Record PreOp Document Type FT Summary Primary Physician: ROSETTA MENDEZ MD Finalized Date/Time: 07/13/24 09:04:45 Pt. Name: VERO SADLER /Sex: 1950 Female Med Rec #: [id number] Physician: ROSETTA MENDEZ MD Financial #: [id number] Pt. Type: A Room/Bed: [place] [address] Admit/Disch: 07/13/24 07:02:16 - Institution: Case Times [...] Signatures Signed By: Andrew Holly Ii 07/13/24 09:04A[facility]ike Medical CenterOperative Reporton [id number] ReportOperative Report Patient: VERO SADLER Age: 74 years Sex: Female : 1950 Associated Diagnoses: None Author: ROSETTA MENDEZ MD Procedure SURGEON: Rosetta Mendez MD PREOPERATIVE DIAGNOSIS: Stress urinary incontinence with , intrinsic sphincter deficiency POSTOPERATIVE DIAGNOSIS: Same PROCEDURE: Cystoscopy, injection of urethral bulking agent CPT 92720 FINDINGS: Urethra injected at 4 units packed [...] in 6 WEEKS. Needs to void before scNoMartin Memorial Hospital Comment on above:Result Comment: Electronically Signed By: BRYAN BELTRÁN, ROSETTA\.br\Date and Time Signed: 07/13/24 10:17 EDTBMPon 80-09-3422Kfpji gap [Moles/Vol]11 mmol/LNormal6-16Norwalk [facility] HospitalComment on above: Performed By: #### [id number] #### [facility] [address], [place] [address]Ssfuhsg [Mass/Vol]9.1 mg/dLNormal8.9-11.1FFulton County Health CenterComment on above:Performed By: #### [id number] #### [facility] [address], [place] [address]Zxlfacpm [Moles/Vol]107 mmol/PPoobba350-288OszcgaNorwalk Memorial HospitalComment on above:Performed By: #### [id number] #### [facility] [address], [place] [address]PC7 [Moles/Vol]26 mmol/TXhhpci35-61OmegrsNorwalk Memorial Hospital Comment on above:Performed By: #### [id number] #### [facility] [address], [place] [address]Gmiwsvkqlz [Mass/Vol]1.6 mg/dLHigh0.5-1.3FFulton County Health CenterComment on above:Performed By: #### [id number] #### [facility] [address], [place] [address]Ixcyjhh [Mass/Vol]91 mg/wOFngyxt28-193DpuzrkNorwalk Memorial HospitalComment on above:Performed By: #### [id number] #### [facility] [address] [place] [address] 150[address]Ozzdecvdm [Moles/Vol]4.7 mmol/LNormal3.5-5.3FFulton County Health CenterComment on above:Performed By: #### [id number] #### [facility] [address] [place] [address] 59013Imssax [Moles/Vol]139 mmol/QVabrlw078-092SirsgsNorwalk Memorial HospitalComment on above:Performed By: #### [id number] #### [facility] [address] [place] [address] 090[address]Yixw nitrogen [Mass/Vol]24 mg/dLHigh5-21Norwalk Memorial HospitalComment on above:Performed By: #### [id number] #### [facility] [address] [place] [address] 60623Myvb nitrogen/Creatinine [Mass ratio]15 No JnfkiVmpddk48-43 [facility] HospitalComment on above:Performed By: #### [id number] #### [facility] [address] [place] [address] 33[address]ILU w/ Auto Diffon 76-00-0851Hrhxpdfni/100 WBC (Bld)1.2 %Normal 0.0-2.0Norwalk Memorial HospitalComment on above:Performed By: #### [id number] #### [facility] [address] [place] [address] 82051Wprljlqvv/Leukocytes Auto (Bld) [Pure # fraction]0.1 E9/LNormal 0.0-0.2FFulton County Health CenterComment on above:Performed By: #### [id number] #### [facility] [address] [place] [address] 49358Rmjhwpaxbtl (Bld) [#/Vol]0.1 E9/LNormal0.0-0.5FFulton County Health CenterComment on above:Performed By: #### [id number] #### [facility] [address] [place] [address] 87133Dcnbhjpeynt/100 WBC (Bld)1.6 %Normal0.0-8.0[facility] Memorial HospitalComment on above:Performed By: #### [id number] #### [facility] [address] [place] [address] 715[address]Bmzpkmtszoq distribution width (RBC) [Ratio]14.6 %High10.9-14.2 [facility] Memorial HospitalComment on above:Performed By: #### [id number] #### [facility] [address] [place] [address] 35[address]Jmwbtatdht (Bld) [Volume fraction]34.0 %Swyhcw87.0-46.0[facility] Memorial HospitalComment on above:Performed By: #### [id number] #### [facility] [address] [place] [address] 815[address]Bqgnipwcgh (Bld) [Mass/Vol]11.2 g/dLLow12.0-16.0[facility] Memorial HospitalComment on above:Performed By: #### [id number] #### [facility] [address] [place] [address] 63364Owugkqgwrbe (Bld) [#/Vol]1.2 E9/LNormal1.0-4.0[facility] Memorial HospitalComment on above:Performed By: #### [id number] #### [facility] [address] [place] [address] 09736Nezslclcncb/100 WBC (Bld)15.1 %Vehqvv71.0-50.0[facility] HospitalComment on above:Performed By: #### [id number] #### [facility] [address] [place] [address] 97970VHT (RBC) [Entitic mass]29.3 yiOkhqln98.0-34.0[facility] HospitalComment on above:Performed By: #### [id number] #### [facility] [address] [place] [address] 900[address]VGPX (RBC) [Mass/Vol]32.9 g/wXOehech88.4-36.0[facility] HospitalComment on above:Performed By: #### [id number] #### [facility] [address] [place] [address] 56223VCO (RBC) [Entitic vol]89.0 qPCrvfxv94.0-100.0[facility] HospitalComment on above:Performed By: #### [id number] #### [facility] [address] [place] [address] 66040Zmxnebiad (Bld) [#/Vol]0.9 E9/LNormal0.2-1.0[facility] HospitalComment on above:Performed By: #### [id number] #### [facility] [address] [place] [address] 55363Kxhccjbbfty (Bld) [#/Vol]5.3 E9/LNormal2.0-7.5FFulton County Health CenterComment on above:Performed By: #### [id number] #### [facility] [address] [place] [address] 15418Oifxekuojhs/100 WBC (Bld)69.9 %Pwhrzf29.0-75.0[facility] HospitalComment on above:Performed By: #### [id number] #### [facility] [address] [place] [address] 27652Abzoqcgq497.0 E9/IMibmpm377.0-500.0[facility] Comment on above:Performed By: #### [id number] #### [facility] [address] [place] [address] 61811Dydhpphx mean volume (Bld) [Entitic vol]7.6 fLNormal6.4-10.8 [facility] HospitalComment on above:Performed By: #### [id number] #### [facility] [address], [place] [address]RYN (Bld) [#/Vol]3.8 E12/LLow4.3-5.9[facility] Comment on above:Performed By: #### [id number] #### [facility] [address], [place] [address]LBO corrected for nucl RBC Auto (Bld) [#/Vol]7.6 E9/LNormal 4.0-11.0[facility] HospitalComment on above:Performed By: #### [id number] #### [facility] [address], [place] [address]VMR APTTon 86-77-3692wXLE Coag (Bld) [Time]29.3 sNOMS HealthcareCHEMISTRYOrdered By: SYSTEM SYSTEM on 76-21-5535Vzyvz gap [Moles/Vol] 11 mmol/LNormal6 - 16 mEq/LRemisol ChemCalcium [Mass/Vol]9.1 mg/dLNormal8.9 - 11.1 mg/dLRemisol ChemChloride [Moles/Vol]107 mmol/AKelvrl071 - 111 mmol/L Remisol ChemCO2 [Moles/Vol]26 mmol/AZbcimj96 - 31 mmol/LRemisol ChemCreatinine [Mass/Vol]1.6 mg/dLHigh0.5 - 1.3 mg/dLRemisol EdglaTCR09 mL/min/1.73 m2Low >=59mL/min/1.73 f1Zvxjqyt ChemGlucose [Mass/Vol]91 mg/aBPmvpyf19 - 199 mg/dL Remisol ChemPotassium [Moles/Vol]4.7 mmol/LNormal3.5 - 5.3 mmol/LRemisol Chem Sodium [Moles/Vol]139 mmol/AGmgagm472 - 145 mmol/LRemisol ChemUrea nitrogen [Mass/Vol]24 mg/dLHigh5 - 21 mg/dLRemisol ChemUrea nitrogen/Creatinine [Mass ratio]15 mg/ilDihvzg18 - 20Remisol ChemCOAGULATIONOrdered By: Jennifer Gross on 76-81-9136eBWP Coag (PPP) [Time]34.6 rScxmsw02.1 - 36.5 second(s)[facility] Auto Coag Comment on above:Interpretive Data: Parameter [...] the same coagulation reagent and instrumentation as [facility]. Currently there are no coagulation studies available worldwide for children to 14 days, andno normal ranges. Heparin therapeutic range (represented by Anti-Factor Xa activity of 0.2 - 0.4 U/mL) corresponds to PTT of 56.6 - 109.0 sec.INR Coag (PPP) [Relative time]1.16 {INR}Invalid Interpretation CodeJD [facility] Auto CoagComment on above:Interpretive Data: INR results are specifically intended to assess patients stabilized on long-term Anticoagulation therapy suggested INR s Less Intensive Anticoagulation 2.0 3.0 Conventional Range 3.0 4.5PT Coag (PPP) [Time]13.0 sHigh9.4 - 12.5 second(s)[facility] Auto CoagComment on above:Interpretive Data: 15 days [...] the same coagulation reagent and instrumentation as [facility]. Currently there are no coagulation studies available worldwide for children to 14 days, andno normal ranges.HEMATOLOGYOrdered By: SYSTEM SYSTEM on 62-82-9924Jpnykkdcf/100 WBC (Bld)1.2 %Normal0.0 - 2.0 %Remisol HemeBasophils/Leukocytes Auto (Bld) [Pure # fraction]0.1 E9/LNormal0.0 - 0.2 E9/LRemisol HemeEosinophils (Bld) [#/Vol]0.1 E9/LNormal0.0 - 0.5 E9/LRemisol HemeEosinophils/100 WBC (Bld)1.6 %Normal0.0 - 8.0 %Remisol HemeErythrocyte distribution width (RBC) [Ratio]14.6 %High10.9 - 14.2 %Remisol HemeHematocrit (Bld) [Volume fraction]34.0 %Fuhhgp97.0 - 46.0 % Remisol HemeHemoglobin (Bld) [Mass/Vol]11.2 g/dLLow12.0 - 16.0 gm/dLRemisol Heme Lymphocytes (Bld) [#/Vol]1.2 E9/LNormal1.0 - 4.0 E9/LRemisol HemeLymphocytes/100 WBC (Bld)15.1 %Vptgqn27.0 - 50.0 %Remisol HemeMCH (RBC) [Entitic mass]29.3 pg Glmmpy63.0 - 34.0 pgRemisol HemeMCHC (RBC) [Mass/Vol]32.9 g/eLItaxwh99.4 - 36.0 gm/dLRemisol HemeMCV (RBC) [Entitic vol]89.0 eTMbbtrt11.0 - 100.0 fLRemisol Heme Monocytes (Bld) [#/Vol]0.9 E9/LNormal0.2 - 1.0 E9/LRemisol HemeMonocytes/100 WBC (Bld)12.2 %Normal4.0 - 14.0 %Remisol HemeNeutrophils (Bld) [#/Vol]5.3 E9/L Normal2.0 - 7.5 E9/LRemisol HemeNeutrophils/100 WBC (Bld)69.9 %Copmur65.0 - 75.0 %Remisol IubmJzivjzvn132.0 E9/CNhyxcd201.0 - 500.0 E9/LRemisol HemePlatelet mean volume (Bld) [Entitic vol]7.6 fLNormal6.4 - 10.8 fLRemisol HemeRBC (Bld) [#/Vol]3.8 E12/LLow4.3 - 5.9 E12/LRemisol HemeWBC corrected for nucl RBC Auto (Bld) [#/Vol]7.6 E9/LNormal4.0 - 11.0 E9/LRemisol HemeNo Panel Informationon 89-50-7064KUOSTRGUAOGXB HealthcarePT & PTTon 18-17-4062nEKR Coag (PPP) [Time] 34.6 second(s)Wrnbuk97.1-36.5Fisher [facility] HospitalComment on above:Result Comment: Parameter 15 days - [...] the same coagulation reagent and instrumentation as [facility]. Currently there are no coagulation studies available worldwide for children to 14 days, andno normal ranges. Heparin therapeutic range (represented by Anti-Factor Xa activity of 0.2 - 0.4 U/mL) corresponds to PTT of 56.6 - 109.0 sec.Performed By: #### [id number] #### Nikolas [facility] [address], [place] [address]RVQ Coag (PPP) [Relative time]1.16 {INR}Invalid Interpretation Nikky [facility] HospitalComment on above:Result Comment: INR results are specifically intended to assess patients stabilized on long-term Anticoagulation therapy suggested INR???s ???Less Intensive Anticoagulation??? 2.0 ??? 3.0 Conventional Range 3.0 ??? 4.5Performed By: #### [id number] #### [facility] [address], [place] [address]EO Coag (PPP) [Time]13.0 second(s)High9.4-12.5Fisher [facility] HospitalComment on above:Result Comment: 15 days - 4 [...] the same coagulation reagent and instrumentation as [facility]. Currently there are no coagulation studies available worldwide for children to 14 days, andno normal ranges.Performed By: #### [id number] #### [facility] [address], [place] [address]XSQXRQ PROTHROMBIN TIME INR W/O COUMon 71-27-0209TQ Coag (PPP) [Time]11.4 sNOMS HealthcareTBH INR1.08NOFL HealthcareComment on above:DESIRED INR: 2.0-3.0 CONDITIONS NOT LISTED BELOW 2.5-3.5 FOR PROSTHETIC HEART VALVE REPLACEMENT 2.5-3.5 RECURRENT THROMBOSIS UA with Cult Rflxon 67-11-1779Yrkkqxnxi Ql (U)NegativeNormalNegativeNorwalk Memorial HospitalComment on above:Performed By: #### [id number] #### Nikolas [facility] [address], [place] [address]Kqejglr (U)ClearNormalClearNorwalk Memorial HospitalComment on above:Performed By: #### [id number] #### [facility] [address], [place] [address]Aktza (U)YellowNormalYellowNorwalk Memorial HospitalComment on above:Result Comment: Microscopic readings are only performed on those samples that meet specific criteria set forth by [facility].Performed By: #### [id number] #### [facility] [address], [place] [address]Rkthgag Ql (U)NegativeNormalNegativeNorwalk Memorial Hospital Comment on above:Performed By: #### [id number] #### [facility] [address], [place] [address]Agbxlvwvsc Auto test strip (U) [Mass/Vol]NegativeNormalNegative [facility] HospitalComment on above:Performed By: #### [id number] #### [facility] [address], [place] [address]Suzmofw Auto test strip Ql (U)NegativeNormalNegativeNorwalk Memorial HospitalComment on above:Performed By: #### [id number] #### [facility] [address], [place] [address]Ihkbbjjjj esterase Auto test strip Ql (U)NegativeNormalNegative [facility] HospitalComment on above:Performed By: #### [id number] #### [facility] [address], [place] [address]Sutqmwx Auto test strip Ql (U)NegativeNormalNegativeNorwalk Memorial HospitalComment on above:Performed By: #### [id number] #### [facility] [address], [place] [address]xA (U)5.0 [pH]Invalid Interpretation Code5.0-9.0[facility] HospitalComment on above:Performed By: #### [id number] #### [facility] [address], [place] [address]Uwaylei Ql (U)TraceAbnormalNegCherrington Hospital Comment on above:Performed By: #### [id number] #### [facility] [address], [place] [address]Lbtjlnga gravity (U) [Rel density]1.016Invalid Interpretation Code1.005-1.030[facility] Memorial HospitalComment on above:Performed By: #### [id number] #### Nikolas [facility] [address], [place] [address]Wxprhpetnebp (U) [Mass/Vol]NegativeNormalNegativeNorwalk Memorial HospitalComment on above:Performed By: #### [id number] #### Nikolas [facility] [address], [place] [address]Ebpz of Urine collection methodClean CatchAdena Pike Medical CenterComment on above:Performed By: #### [id number] #### [facility] [address], [place] [address]XBLGQVAKPXFdaimde By: SYSTEM SYSTEM on 56-05-9230Finjmdkqt Ql (U)NegativeNormalNegativemg/dLJD [facility] UA Auto SSClarity (U)Clear (06/26/24 1:56 PM)NormalClearFCOMANCHE [facility] UA Auto SSColor (U)Yellow 1 (06/26/24 1:56 PM)NormalYellowJD [facility] UA Auto SSComment on above:Interpretive Data: Microscopic readings are only performed on those samples that meet specific criteria set forth by [facility].Glucose Ql (U) NegativeNormalNegativemg/dLFT UA Auto SSHemoglobin Auto test strip (U) [Mass/Vol]NegativeNormalNegativemg/dLFT UA Auto SSKetones Auto test strip Ql (U)NegativeNormalNegativemg/dLFT UA Auto SSLeukocyte esterase Auto test strip Ql (U)NegativeNormalNegativeLeu/uLFT UA Auto SSNitrite Auto test strip Ql (U) NegativeNormalNegativemg/dLFT UA Auto SSpH (U)5.0 *NA* (06/26/24 1:56 PM)Invalid Interpretation Code5.0 - 9.0[facility] UA Auto SSProtein Ql (U)Trace mg/dLInvalid Interpretation CodeNegativemg/dLJD [facility] UA Auto SSSpecific gravity (U) [Rel density]1.016 *NA* (06/26/24 1:56 PM)Invalid Interpretation Code1.005 - 1.030[facility] UA Auto SS Urobilinogen (U) [Mass/Vol]NegativeNormalNegativemg/dLJD [facility] UA Auto SSURINALYSIS Ordered By: Sheri Roberts on 22-53-3853CK Spec DescClean Catch (06/26/24 1:56 PM)NormalJD [facility] UA Auto SSeGFRon 79-07-2581gDOZ10 mL/min/1.73 m2Low >=59Fisher [facility] HospitalComment on above:Performed By: #### [id number] ####[facility] [address] [place] [address] Albumin [Mass/volume] in Serum or Plasmaon 44-70-8119Rzevzmy [Mass/Vol]Albumin [Mass/volume] in Serum or Plasma2.9-4.4FOhioHealth Grove City Methodist HospitalIgA [Mass/volume] in Serum or Plasmaon 37-91-7537DwT [Mass/Vol]IgA [Mass/volume] in Serum or Fhzijm82-469ZluoojkgaRiverview Health InstituteIgG [Mass/volume] in Serum or Plasmaon 32-69-4664RhT [Mass/Vol]IgG [Mass/volume] in Serum or Plasma 586-1602Riverview Health InstituteIgM [Mass/volume] in Serum or Plasmaon 15-71-1454TkV [Mass/Vol]IgM [Mass/volume] in Serum or Crbepn41-667WbvddguaaRiverview Health InstituteImmunofixation for Urineon 21-40-2693Jyxoodvhnpeizv Immunofixation (U) [Interp]Immunofixation for Urine.[facility] Health InstituteComment on above:No monoclonality detected.Performed at: - [address] [id number] Director: Jozef Medina PhD, Phone: [phone] light chains.kappa.free [Mass/volume] in Serum on 69-81-5243Vyzndlggolsfpz light chains.kappa.free (S) [Mass/Vol]Immunoglobulin light chains.kappa.free [Mass/volume] in SerumAbnormal3.3-19.4Fire[facility] Regional Medical CenterImmunoglobulin light chains.kappa.free/Immunoglobulin light chains.lambda.free [Alexandra 32-44-8320Tnvkxxnieqocnf light chains.kappa.free/Immunoglobulin light chains.lambda.free (S) [Mass ratio] Immunoglobulin light chains.kappa.free/Immunoglobulin light chains.lambda.free [MassAbnormal0.26-1.65R[facility] Health InstituteComment on above: Performed at: tagga [address] [id number] Director: Jozef Medina PhD, Phone: [phone] light chains.lambda.free [Mass/volume] in Serum or Plasmaon 96-68-8135Bjentbtxczzjth light chains.lambda.free [Mass/Vol]Immunoglobulin light chains.lambda.free [Mass/volume] in Serum or PlasmaAbnormal5.7-26.3FOhioHealth Grove City Methodist HospitalIron binding capacity [Mass/volume] in Serum or Plasmaon 09-61-9978Naqf binding capacity [Mass/Vol]Iron binding capacity [Mass/volume] in Serum or QesivdHmb504.0-450.0R[facility] Health InstituteIron saturation [Mass Fraction] in Serum or Plasmaon 63-92-0564Zshv saturation [Mass fraction]Iron saturation [Mass Fraction] in Serum or PlasmaRiverview Health Institute Laboratory - Chemistry and Chemistry - challengeon 29-05-7827Wzbhgpwa [Mass/Vol] 147.0 ng/mL8.0-252.0R[facility] Health InstituteIron [Mass/Vol]51.0 ug/dL 50.0-170.0[facility] Health InstituteMagnesium [Mass/Vol]1.6 mg/dLLow 1.8-2.4FOhioHealth Grove City Methodist HospitalUrate [Mass/Vol]8.0 mg/dLHigh2.6-6.0 [facility] InstituteLaboratory - Urinalysison 71-72-5518Bhtdqyr (U) [Mass/Vol]30.4 mg/dLHigh<=11.9R[facility] Health InstituteNo Panel Informationon 49-39-076709415264-Jpfimrq Vitamin D Total37.9 ng/mLRiverview Health InstituteComment on above:<20 ng/mL Vit D pomjdomhc20-<30 ng/mL Vit D jtijmaiwcxhm93-540 ng/mL Vit D sufficient>100 ng/mL Potential Toxicity Parathyroid Hormone (Intact)43 pg/mR85-08JgibnkymlRiverview Health Institute Comment on above:Performed at: tagga - [facility] [address] [id number] Director: Jozef Medina PhD, Phone: [phone] Level 3.7 mg/dL2.6-4.7FOhioHealth Grove City Methodist HospitalProtein Electrophoresis M-Benjy Comment: g/dLNot ObservedRiverview Health InstituteComment on above:SPE shows an asymmetrical gamma.Protein Electrophoresis NoteComment.[facility] InstituteComment on above:Protein electrophoresis scan will follow via computer,mail, or windows support engineer delivery.Urine Random Pekgnxbyht177.97 mg/dL 20.00-300.00R[facility] Health InstituteProtein [Mass/volume] in Serum or Plasmaon 01-27-2005Hejhupb [Mass/Vol]Protein [Mass/volume] in Serum or Plasma 6.0-8.5FAvita Health System Ontario Hospitalerum globulin measurement (mass/volume) on 19-14-5719Kcxipnuh (S) [Mass/Vol]Serum globulin measurement (mass/volume) 2.2-3.9[facility], Avonerum or plasma albumin/globulin mass ratioon 82-80-3753Flyfehc/Globulin [Mass ratio]Serum or plasma albumin/globulin mass ratio0.7-1.7FAvita Health System Ontario Hospitalerum or plasma alpha 1 globulin measurement by electrophoresis (mass/volume)on 93-42-8424Pfexl 1 globulin Elph [Mass/Vol]Serum or plasma alpha 1 globulin measurement by electrophoresis (mass/volume)0.0-0.4FAvita Health System Ontario Hospitalerum or plasma alpha 2 globulin measurement by electrophoresis (mass/volume)on 83-50-3016Mayic 2 globulin Elph [Mass/Vol]Serum or plasma alpha 2 globulin measurement by electrophoresis (mass/volume)0.4-1.0[facility], Avonerum or plasma beta globulin measurement by electrophoresis (mass/volume) on 45-30-2851Jouj globulin Elph [Mass/Vol]Serum or plasma beta globulin measurement by electrophoresis (mass/volume)0.7-1.3FAvita Health System Ontario Hospitalerum or plasma gamma globulin measurement by electrophoresis (mass/volume)on 73-81-7256Yhsui globulin Elph [Mass/Vol]Serum or plasma gamma globulin measurement by electrophoresis (mass/volume)0.4-1.8[facility], Avonerum or plasma immunoelectrophoresis interpretationon 06-20-2024 Interpretation IEP [Interp]Serum or plasma immunoelectrophoresis interpretation. [facility] InstituteComment on above:Presence of monoclonal protein is unclear at this time. Suggestrepeat in 3 to 6 months if clinically indicated.Urine protein/creatinine ratioon 84-20-8351Senscdj/Creatinine (U) [Ratio]Urine protein/creatinine ratioRiverview Health InstituteUrology Office/Clinic Noteon 60-55-9519Gpjcvtl Office/Clinic NoteUrology Office/Clinic Note Chief Complaint Cysto [...] for UCC. 4. Aspirin long-term use (Z79.82: traveling representative (current) use of aspirin) ASA. No BTs. [...] [employer] Patient Education Jericho Peralta I, Elvi Posadsa, personally scribed for Dr. Rosetta Mendez on 05/19/2024 09:01:12. . Portions of this record may have been created with voice recognition artificial intelligence software, specifically Plur[employer], Sovi and or Mogad. Substitutions may have occurred due to the [...] nodules Pulmonary hypertension Spina (more content not included)...[facility] Pike Medical CenterComment on above:Result Comment: Electronically Signed By: ROSETTA MENDEZ MD\.br\Date and Time Signed: 05/19/24 09:40 EST\.br\Electronically Co- Signed By: Elvi Posadas\.br\Date and Time Co-Signed: 05/19/24 09:01 EST Office [facility] 32-86-7988Rkmduv-up [id number] Vero Sadler 1950 F Date Provider Department Center 05/09/2024 JOSEY ARNOLD [facility] Family History Problem Relation Age of Onset Other Mother Coronary artery disease Mother Other Mother Other Mother Other Father Hypertension Father Hyperlipidemia Father Other Daughter Family Status - Relation Status Age at Mother Father Daughter Level of Service:22903 [place] OFFICE/OUTPATIENT ESTABLISHED LOW MDM 20 [facility] HospitalXR Sinuses 3 Viewson [id number] [address] [place] [address] XRay Report Signed Patient: VERO SADLER MR#: [id number] : 1950 Acct:[id number] Age/Sex: 74 / F ADM Date: 05/09/24 Loc: RAD Attending Dr: John Mathews M.D. Ordering Physician: John Mathews M.D. Date of Service: 05/09/24 Procedure(s): XR sinus min 3V Accession Number(s): [id number] cc: Debbie Bhatia M.D.; John Mathews M.D. The [address] [address] Patient Name: VERO SADLER MRN: [id number] date: 1950 Sex: F Assigned Patient Location: RAD Current Patient Location: RAD Accession/Order Number: [id number] Exam Date: 05/09/2024 12:47 Report Date: 05/09/2024 [...] Kelly Lao M.D.05/09/2024 12:54 PM Dictation Location: [place] [address] Electronically authenticated by: [id number] Y Date: 05/09/2024 12:54 Dictated By: Kelly Lao M.D. Signed By: 05/09/24 1257 DD/ 1254 TD/TT: Tilesetter:LUIS MANUELadiology, Radiologist, - 05/09/[address] [address] XRay Report Signed Patient: VERO SADLER MR#: [id number] : 1950 Acct:[id number] Age/Sex: 74 / F ADM Date: 05/09/24 Loc: RAD Attending Dr: John Mathews M.D. Ordering Physician: John Mathews M.D. Date of Service: 05/09/24 Procedure(s): XR sinus min 3V Accession Number(s): [id number] cc: Debbie Bhatia M.D.; John Mathews M.D. [place] [address] Patient Name: VERO SADLER MRN: [id number] date: 1950 Sex: F Assigned Patient Location: RAD Current Patient Location: RAD Accession/Order Number: [id number] Exam Date: 05/09/2024 12:47 Report Date: 05/09/2024 [...] Kelly Lao M.D.05/09/2024 12:54 PM Dictation Location: [place] [address] Electronically authenticated by: [id number] Y Date: 05/09/2024 12:54 Dictated By: Kelly Lao M.D. Signed By: 05/09/24 1257 DD/ 1254 TD/TT: Tilesetter: NOMKaykay HealthcareRadiology Study observation (narrative)NOMS HealthcareXR Sinuses 3 ViewsOrdered By: Radiologist Radiology on 20-55-4825YGYBLakeland Regional Hospital Work Phone: ambulatory Visit Summaryon 22-36-4982Hyvndktike Visit SummaryAmbulatory Visit Summary VERO SADLER :1950 [...] You may receive a (more content not included)...[facility] CenterUrology Office/Clinic Noteon 07-84-8133Ohjbavt Office/Clinic NoteUrology Office/Clinic Note Chief Complaint New [...] gross hematuria. 4. Aspirin long-term use (Z79.82: detention (current) use of aspirin) ASA. No BTs. [...] with voice recognition artificial intelligence software, specifically Plurality, Sovi and or Mogad. Substitutions may have occurred due to the [...] kidney disease due t (more content not included)...[facility] CenterComment on above:Result Comment: Electronically Signed By: ROSETTA MENDEZ MD\.br\Date and Time Signed: 03/31/24 15:13 EST\.br\Electronically Co-Signed By: Elvi Posadas\.br\Date and Time Co- Signed: 03/31/24 15:10 EST\.br\Electronically Co-Signed By: Elvi Posadas\.br\Date and Time Co-Signed: 03/31/24 15:10 ESTOffice Visiton 01-26-2024 Follow-up [id number] Vero Sadler 1950 F Date Provider Department [facility] Family History Problem Relation Age of Onset Other Mother Coronary artery disease Mother Other Mother Other Mother Other Father Hypertension Father Hyperlipidemia Father Other Daughter Family Status - Relation Status Age at Mother Father Daughter Level of Service:95865 [place] OFFICE/OUTPATIENT ESTABLISHED LOW MDM 20 [facility] HospitalMR LUMBAR SPINE WO CONTRASTon 80-06-1121CK LUMBAR SPINE WO CONTRASTMR LUMBAR SPINE WO [...] neural foraminal narrowing. Electronically signed: Arnol Cutler MD.[facility] Comment on above:Order Comment: ORDER IN EPICNURSNOTEon 76-23-5001AYXGICJOCepxg from [employer] prepped pacemaker. Patient verbalizes no issues with device. Monitor hooked up for continuous patient monitoring throughout the scan. [facility] HospitalCBC AUTO DIFFon 34-23-2321WFTC #0.0 103/ulNormal0.0-0.1The [facility] HospitalComment on above:Performed By: #### CBC #### [facility] [address] [place] [address] Dr. Eusebia MoralezBasophils/100 WBC (Bld)0.6 %Normal0.2-2.0[facility] Comment on above:Performed By: #### CBC #### [facility] [address] [place] [address] Dr. Eusebia Carlton #0.2 103/ulNormal0.0-0.7The [facility] HospitalComment on above: Performed By: #### CBC #### [facility] [address] [place] [address] Dr. Eusebia Dunlaposinophils/100 WBC (Bld)2.2 %Normal0.9-7.0[facility] Comment on above:Performed By: #### CBC #### [facility] [address] [place] [address] Dr. Eusebia Dunlaprythrocyte distribution width (RBC) [Ratio]13.0 %Cdawda96.0-15.0 Parkwood HospitalComment on above:Performed By: #### CBC #### [facility] [address] [place] [address] Dr. Eusebia MoralezHematocrit (Bld) [Volume fraction]40.5 %Zhsoxh29.0-48.0Park[facility] HospitalComment on above:Performed By: #### CBC #### [facility] [address] [place] [address] Dr. Eusebia MoralezHemoglobin (Bld) [Mass/Vol]12.7 g/bPWyhfsi56.0-16.0The [facility] HospitalComment on above:Performed By: #### CBC #### [facility] [address] [place] [address] Dr. Eusebia Pagan #0.02 10e3/ulNormal0.00-0.03The [facility] HospitalComment on above:Performed By: #### CBC #### [facility] [address] [place] [address] Dr. Eusebia Pagan %0.3 %Normal0.0-0.5The [facility] HospitalCombronson lake[facility] on above: Performed By: #### CBC #### [facility] [address] [place] [address] Dr. Eusebia GreyYadira #1.4 103/ulNormal1.2-3.8The [facility] HospitalComment on above:Performed By: #### CBC #### [facility] [address] [place] [address] Dr. uEsebia Downshocytes/100 WBC (Bld)19.9 %Critically low20.5-60.0The [facility] HospitalComment on above:Performed By: #### CBC #### [facility] [address] [place] [address] Dr. Eusebia PattersonUAL DIFF REQNONormalThe [facility] HospitalComment on above: Performed By: #### CBC #### [facility] [address] [place] [address] Dr. Eusebia Chun (RBC) [Entitic mass]29.1 ixWccwbg25.7-34.0The [facility] HospitalComment on above:Performed By: #### CBC #### [facility] [address] [place] [address] Dr. Eusebia Chun (RBC) [Mass/Vol]31.4 g/jOHucvqv41.9-35.2The [facility] HospitalComment on above:Performed By: #### CBC #### [facility] [address] [place] [address] Dr. Eusebia Chun (RBC) [Entitic vol]92.9 nDQwtmkb13.0-99.0The [facility] HospitalComment on above:Performed By: #### CBC #### [facility] [address] [place] [address] [address] Eusebia Davis #0.7 103/ulNormal0.3-0.8The [facility] HospitalComment on above:Performed By: #### CBC #### [facility] [address] [place] [address] Dr. Eusebia Fanocytes/100 WBC (Bld)9.4 %Normal1.7-12.0The [facility] Comment on above:Performed By: #### CBC #### [facility] [address] [place] [address] Dr. Eusebia Morin #4.7 103/ulNormal1.4-6.5The [facility] HospitalComment on above:Performed By: #### CBC #### [facility] [address] [place] [address] Dr. Eusebia Mccormackutrophils/100 WBC (Bld)67.6 %Srzimc85.0-75.0The [facility] HospitalComment on above:Performed By: #### CBC #### [facility] [address] [place] [address] Dr. Eusebia Hoyoslet mean volume (Bld) [Entitic vol]9.9 fLNormal9.5-13.5The [facility] HospitalComment on above:Performed By: #### CBC #### [facility] [address] [place] [address] Dr. Eusebia MoralezPLT218 103/otPptdmg391-926Qvm [facility] HospitalComment on above: Performed By: #### CBC #### [facility] [address] [place] [address] Dr. Eusebia MoralezRBC4.36 106/ulNormal4.20-5.40The [facility] HospitalComment on above:Performed By: #### CBC #### [facility] [address] [place] [address] Dr. Eusebia MoralezWBC6.9 103/ulNormal4.0-11.0The [facility] HospitalComment on above: Performed By: #### CBC #### [facility] [address] [place] [address] [address] Eusebia MoralezPROF CHEM 8 (BAS METB)on 90-32-5477Eqhgn gap [Moles/Vol]9.0 mmol/LNormalThe [facility] HospitalComment on above:Performed By: #### BMP #### [facility] [address] [place] [address] [address] Eusebia MoralezCalcium [Mass/Vol]9.2 mg/dLNormal8.5-10.1The [facility] Comment on above:Performed By: #### BMP #### [facility] [address] [place] [address] [address] Eusebia MoralezChloride [Moles/Vol]103 mmol/ZNnidvk18-102PpeParkwood Hospital Comment on above:Performed By: #### BMP #### [facility] [address] [place] [address] Dr. Eusebia MoralezCO2 [Moles/Vol]32.9 mmol/LCritically high21.0-32.0The [facility] HospitalComment on above:Performed By: #### BMP #### [facility] [address] [place] [address] Dr. Eusebia MoralezCreatinine [Mass/Vol]1.74 mg/dLCritically high0.55-1.02The [facility] HospitalComment on above:Performed By: #### BMP #### [facility] [address] [place] [address] Dr. Laws ChangEGFR-AF TUQNTUXV11 mL/min/1.42e7Ffefnuxkar low>=60The [facility] HospitalComment on above:Performed By: #### BMP #### [facility] [address] [place] [address] Dr. Eusebia DunlapGFR-NON AF YLMUXGLR35 mL/min/1.17r6Vglgerkhkw low>=60The [facility] HospitalComment on above:Performed By: #### BMP #### [facility] [address] [place] [address] Dr. Eusebia MoralezGlucose [Mass/Vol]101 mg/iJCfhrxf69-072Sji [facility] Comment on above:Performed By: #### BMP #### [facility] [address] [place] [address] [address] Eusebia MoralezPotassium [Moles/Vol]3.9 mmol/LNormal3.5-5.1The [facility] Comment on above:Performed By: #### BMP #### [facility] [address] [place] [address] [address] Eusebia MoralezSodium [Moles/Vol]141 mmol/VTokhmz124-912Aqd [facility] Comment on above:Performed By: #### BMP #### [facility] [address] [place] [address] [address] Eusebia MoralezUrea nitrogen [Mass/Vol]34.0 mg/dLCritically high7.0-18.0The [facility] HospitalComment on above:Performed By: #### BMP #### [facility] [address] [place] [address] [address] Eusebia MoralezUrea nitrogen/Creatinine [Mass ratio]19.5 mg/mgNormalThe [facility] HospitalComment on above:Performed By: #### BMP #### [facility] [address] [place] [address] [address] Eusebia Klein AUTO DIFFon 80-67-4234CULP #0.1 103/ulNormal0.0-0.1The [facility] HospitalComment on above:Performed By: #### CBC ####[facility] [address] [place] [address]DrEsther MoralezBasophils/100 WBC (Bld)0.7 %Normal0.2-2.0The [facility] HospitalComment on above:Performed By: #### CBC ####[facility] [address] [place] [address] ChangEO #0.1 103/ulNormal0.0-0.7The [facility] HospitalComment on above:Performed By: #### CBC ####[facility] [address] [place] [address]DrEsther ChangEosinophils/100 WBC (Bld)1.8 %Normal 0.9-7.0The [facility] HospitalComment on above:Performed By: #### CBC ####[facility] K[address] [place], [place] [address]Dr.Eusebia Moralez Erythrocyte distribution width (RBC) [Ratio]13.1 %Flfawl73.0-15.0The [facility] HospitalComment on above:Performed By: #### CBC ####[facility] Gbcidedzok[address] [place], [place] [address]Dr.Eusebia MoralezHematocrit (Bld) [Volume fraction]40.2 %Tdfmvn95.0-48.0The [facility] HospitalComment on above:Performed By: #### CBC ####[facility] Bqxm[address]fg[address] [place], [place] [address]Dr.Eusebia MoralezHemoglobin (Bld) [Mass/Vol]12.5 g/dL Qpmdco49.0-16.0The [facility] HospitalComment on above:Performed By: #### CBC ####[facility] C[address]afi[address] [place], [place] [address]Dr. Eusebia MoralezIG #0.01 10e3/ulNormal0.00-0.03The [facility] HospitalComment on above: Performed By: #### CBC ####[facility] Wekaevg[address]ye[address] [place], [place] [address]Dr.Eusebia MoralezIG %0.1 %Normal0.0-0.5The [facility] HospitalComment on above:Performed By: #### CBC ####[facility] Xrqtphoqzo[address] [place], [place] [address]Dr.Eusebia MoralezLYMPH #1.5 103/ulNormal1.2-3.8The [facility] HospitalComment on above:Performed By: #### CBC ####[facility] Ezsxfxgfpy[address] [place], [place] [address]Dr. Eusebia MoralezLymphocytes/100 WBC (Bld)22.6 %Mwvjwh59.5-60.0The [facility] Comment on above:Performed By: #### CBC ####[facility] Yqmtkpfdzx[address] [place], [place] [address]Dr.Eusebia MoralezMANUAL DIFF REQNONormalThe [facility] HospitalComment on above:Performed By: #### CBC ####[facility] Tdiumegpyn[address] [place], [place] [address]Dr.Eusebia MoralezNYU LANG[facility] (RBC) [Entitic mass]29.3 ohGohjwv62.7-34.0The [facility] HospitalComment on above: Performed By: #### CBC ####[facility] Oadabcemqp[address] [place], [place] [address]Dr.Eusebia MoralezSTONY BR[facility] (RBC) [Mass/Vol]31.1 g/dLNormal 29.9-35.2The [facility] HospitalComment on above:Performed By: #### CBC ####[facility] Xxcpjeylvg[address] [place], [place] [address]Dr. Eusebia MoralezV (RBC) [Entitic vol]94.4 vODtomrp07.0-99.0The [facility] Comment on above:Performed By: #### CBC ####[facility] Kvaszzfbfk[address] [place], [place] [address]Dr.Eusebia MoralezMONO #0.6 103/ulNormal0.3-0.8 The [facility] HospitalComment on above:Performed By: #### CBC ####[facility] Fekedfxboj[address] [place], [place] [address]Dr.Eusebia Moralez Monocytes/100 WBC (Bld)9.1 %Normal1.7-12.0The [facility] HospitalComment on above: Performed By: #### CBC ####[facility] Ndqkdzekbp[address] [place], [place] [address]Dr.Eusebia MoralezNEUT #4.4 103/ulNormal1.4-6.5The [facility] HospitalComment on above:Performed By: #### CBC ####[facility] Tljfsjyjso[address] [place], [place] [address]Dr.Eusebia MoralezNeutrophils/100 WBC (Bld)65.7 %Hltsef78.0-75.0The [facility] HospitalComment on above:Performed By: #### CBC ####[facility] [address]pirsjr[address] [place] [address]Dr.Eusebia ChangPlatelet mean volume (Bld) [Entitic vol]9.6 fLNormal9.5-13.5 The [facility] HospitalComment on above:Performed By: #### CBC ####[facility] Mlyludrqhf[address] [place], [place] [address]Dr.Lisalan ZubaeFDC156 103/iyCqvdib461-856Iri [facility] HospitalComment on above:Performed By: #### CBC ####[facility] Grtvanejtr[address] [place], [place] [address]Dr. Lisalan ChangRBC4.26 106/ulNormal4.20-5.40The [facility] HospitalComment on above: Performed By: #### CBC ####[facility] Obxgtjdbbv[address] [place], [place] [address]Dr.Eusebia ChangWBC6.7 103/ulNormal4.0-11.0The [facility] HospitalComment on above:Performed By: #### CBC ####[facility] Hnzajxsefi[address] [place], [place] [address]Dr.Eusebia ChangPROF CHEM 8 (BAS METB)on 44-45-3422Fgyts gap [Moles/Vol]11.2 mmol/LNormalParkwood HospitalComment on above:Performed By: #### BMP ####[facility] Dnljunmhfd[address] [place], [place] [address]Dr.Eusebia ChangCalcium [Mass/Vol]9.2 mg/dLNormal8.5-10.1The [facility] HospitalComment on above:Performed By: #### BMP ####[facility] Zuhmmlbhga[address] [place], [place] [address]Dr.Yilan ChangChloride [Moles/Vol]109 mmol/LCritically ibvw76-122Fwl [facility] HospitalComment on above:Performed By: #### BMP ####[facility] [address]sncbkmvjr[address] [place], [place] [address]Dr.Yilan ChangCO2 [Moles/Vol] 27.6 mmol/HVfwbpi25.0-32.0The [facility] HospitalComment on above:Performed By: #### BMP ####[facility] [address] [place] [address]Dr.Yilan ChangCreatinine [Mass/Vol]1.49 mg/dLCritically high0.55-1.02The [facility] HospitalComment on above:Performed By: #### BMP ####[facility] Ixfvpqblft[address] [place], [place] [address]Dr.Yilan ChangEGFR-AF UASZDKDH79 mL/min/1.79m6Vqnssltkxm low>=60The [facility] HospitalComment on above: Performed By: #### BMP ####[facility] Kjksnpf[address] [place], [place] [address]Dr.Yilan ChangEGFR-NON AF TDQVBXJW09 mL/min/1.73m2 Critically low>=60The [facility] HospitalComment on above:Performed By: #### BMP ####[facility] Vngnrnbrhh[address] [place], [place] [address]Dr. Yilan ChangGlucose [Mass/Vol]89 mg/cWMwwzxy14-875Abq [facility] HospitalComment on above:Performed By: #### BMP ####[facility] Ugkybrqzjz[address] [place], [place] [address]Dr.Yilan ChangPotassium [Moles/Vol]4.8 mmol/LNormal 3.5-5.1The [facility] HospitalComment on above:Performed By: #### BMP ####[facility] Sjkiwhfbfx[address] [place], [place] [address]Dr.Yilan Moralez Sodium [Moles/Vol]143 mmol/XTrblvm181-653Uue [facility] HospitalComment on above: Performed By: #### BMP ####[facility] Euywdqxfjt[address] [place], [place] [address]Dr.Yilan ChangUrea nitrogen [Mass/Vol]27.0 mg/dL Critically high7.0-18.0The [facility] HospitalComment on above:Performed By: #### BMP ####[facility] Bdklrjtzgn[address] [place], [place] [address]Dr. Yilan ChangUrea nitrogen/Creatinine [Mass ratio]18.1 mg/mgNormalThe [facility] HospitalComment on above:Performed By: #### BMP ####[facility] [address] [place], [place] [address]MeDr.Yilan Cobos LUNG CANCER SCREENINGon 76-94-5485XU LUNG CANCER SCREENINGEXAMINATION: CT LUNG CANCER SCREENING [...] Electronically authenticated by: AMBAR MAYA Date: 2022-02-24 08:15NormalParkwood HospitalPROF CHEM 8 (BAS METB)on 91-03-8613Lwycm gap [Moles/Vol]9.7 mmol/LNormalParkwood HospitalComment on above:Performed By: #### BMP #### [facility] [address] [place], [place] [address] Dr. Eusebia MoralezCalcium [Mass/Vol]8.8 mg/dLNormal8.5-10.1The [facility] Comment on above:Performed By: #### BMP #### [facility] [address] [place], [place] [address] Dr. Eusebia MoralezChloride [Moles/Vol]107 mmol/OAcbzob63-304Zrw [facility] Comment on above:Performed By: #### BMP #### [facility] [address] [place] [address] [address] Eusebia MoralezCO2 [Moles/Vol]29.5 mmol/YJyddks96.0-32.0The [facility] Comment on above:Performed By: #### BMP #### [facility] [address] [place] [address] [address] Eusebia MoralezCreatinine [Mass/Vol]1.83 mg/dLCritically high0.55-1.02[facility] HospitalComment on above:Performed By: #### BMP #### [facility] [address] [place] [address] [address] Eusebia Bush-AF QUWRCTZD46 mL/min/1.52x9Fpjnkktzgr low>=60The [facility] HospitalComment on above:Performed By: #### BMP #### [facility] [address] [place] [address] [address] Eusebia Bush-NON AF JAHQWCPF04 mL/min/1.85d7Eluxnksnpe low>=60The [facility] HospitalComment on above:Performed By: #### BMP #### [facility] [address] [place] [address] Dr. Eusebia MoralezGlucose [Mass/Vol]87 mg/yRPssrlt93-697XahParkwood Hospital Comment on above:Performed By: #### BMP #### [facility] [address] [address] [address] Eusebia MoralezPotassium [Moles/Vol]5.2 mmol/LCritically high3.5-5.1The [facility] HospitalComment on above:Performed By: #### BMP #### [facility] [address] [address] [address] Eusebia MoralezSodium [Moles/Vol]141 mmol/QAmpddk292-083Jxq [facility] Comment on above:Performed By: #### BMP #### [facility] [address] [address] [address] Eusebia MoralezUrea nitrogen [Mass/Vol]37.0 mg/dLCritically high7.0-18.0[facility] HospitalComment on above:Performed By: #### BMP #### [facility] [address] [address] [address] Eusebia MoralezUrea nitrogen/Creatinine [Mass ratio]20.2 mg/mgNormThe Christ HospitalComment on above:Performed By: #### BMP #### [facility] [address] [place] [address] Eusebia MoralezNM STRESS/REST MULTIon 70-30-7456YL STRESS/REST MULTIPatient: VERO SADLER Exam Date: 01/23/2022 : 1950 Gender:F Ordering : DR DEBBIE BHATIA . Admission #: [id number] Family : Order #: [id number] CLICK HERE TO VIEW EXAM RADIOLOGY REPORT [...] by: Raji Canchola MD on 01/26/2022 at 13:45[facility] ECHOCARDIO M/2D COMPLETEon 16-25-6783GGKORLFIAR M/2D COMPLETEPatient: VERO SADLER Exam Date: 01/21/2022 : 1950 Gender:F Ordering : DR DEBBIE BHATIA . Admission #: [id number] Family : Order #: [id number] CLICK HERE TO VIEW EXAM ECHOCARDIOGRAM REPORT [...] by: Tato Salcido M.D. on 01/21/2022 at 09:17[facility] CampusXR DEXA BONE DENSITYon 63-09-7455OX DEXA BONE DENSITYEXAMINATION: XR DEXA BONE DENSITY, [...] Electronically authenticated by: RAJI CANCHOLA Date: 2022-01-21 10:03NoMcCullough-Hyde Memorial HospitalBNPon 79-54-8654Kvwvdcixoif peptide B (Bld) [Mass/Vol]834.0 pg/mLNormal<=900.0The [facility] HospitalComment on above:Performed By: #### TSH, BNP, CMP, T7, LIPID ####[facility] [address] [place] [address]Dr. Eusebia SchaeferC AUTO DIFFon 45-86-2668DCDS #0.0 103/ulNormal 0.0-0.1The [facility] HospitalComment on above:Performed By: #### CBC #### [facility] [address] [place] [address] [address] Eusebia MoralezBasophils/100 WBC (Bld)0.4 %Normal0.2-2.0The [facility] Comment on above:Performed By: #### CBC #### [facility] [address] [place] [address] [address] Eusebia Carlton #0.1 103/ulNormal0.0-0.7The [facility] HospitalComment on above: Performed By: #### CBC #### [facility] [address] [place] [address] [address] Eusebia Dunlaposinophils/100 WBC (Bld)1.1 %Normal0.9-7.0The [facility] Comment on above:Performed By: #### CBC #### [facility] [address] [place] [address] [address] Eusebia Dunlaprythrocyte distribution width (RBC) [Ratio]15.0 %Hjjrfp19.0-15.0 The [facility] HospitalComment on above:Performed By: #### CBC #### [facility] [address] [place] [address] [address] Eusebia MoralezHematocrit (Bld) [Volume fraction]39.6 %Qcmubx36.0-48.0The [facility] HospitalComment on above:Performed By: #### CBC #### [facility] [address] [place] [address] [address] Eusebia MoarlezHemoglobin (Bld) [Mass/Vol]12.4 g/dEWkjgxr01.0-16.0The [facility] HospitalComment on above:Performed By: #### CBC #### [facility] [address] [place] [address] [address] Eusebia Pagan #0.02 10e3/ulNormal0.00-0.03The [facility] HospitalComment on above:Performed By: #### CBC #### [facility] [address] [place] [address] Dr. Eusebia Pagan %0.3 %Normal0.0-0.5The [facility] HospitalComment on above: Performed By: #### CBC #### [facility] [address] [place] [address] Dr. Eusebia Lai #1.3 103/ulNormal1.2-3.8The [facility] HospitalComment on above:Performed By: #### CBC #### [facility] [address] [address] Dr. Eusebia Downshocytes/100 WBC (Bld)17.9 %Critically low20.5-60.0The [facility] Centerment on above:Performed By: #### CBC #### [facility] [address] [address] [address] Eusebia PattersonUAL DIFF REQNONormalThe [facility] HospitalComment on above: Performed By: #### CBC #### [facility] [address] [address] [address] Eusebia Chun (RBC) [Entitic mass]29.8 zlAlgemu46.7-34.0The [facility] HospitalComment on above:Performed By: #### CBC #### [facility] [address] [place] [address] Dr. Eusebia Chun (RBC) [Mass/Vol]31.3 g/wCSpxttr96.9-35.2The [facility] HospitalComment on above:Performed By: #### CBC #### [facility] [address] [address] [address] Eusebia ChunV (RBC) [Entitic vol]95.2 mEYdyhww61.0-99.0The [facility] HospitalComment on above:Performed By: #### CBC #### [facility] [address] [address] [address] Eusebia Davis #0.5 103/ulNormal0.3-0.8The [facility] HospitalComment on above:Performed By: #### CBC #### [facility] [address] [place] [address] Dr. Eusebia Fanocytes/100 WBC (Bld)7.0 %Normal1.7-12.0The [facility] Comment on above:Performed By: #### CBC #### [facility] [address] [place] [address] Dr. Eusebia Morin #5.2 103/ulNormal1.4-6.5The [facility] HospitalComment on above:Performed By: #### CBC #### [facility] [address] [place] [address] Dr. Eusebia Mccormackutrophils/100 WBC (Bld)73.3 %Ublotr08.0-75.0The [facility] on above:Performed By: #### CBC #### [facility] [address] [place] [address] Dr. Eusebia Hoyoslet mean volume (Bld) [Entitic vol]9.5 fLNormal9.5-13.5The [facility] HospitalComment on above:Performed By: #### CBC #### [facility] [address] [place] [address] Dr. Eusebia MoralezPLT188 103/mxPhfjta814-438Dol [facility] HospitalComment on above: Performed By: #### CBC #### [facility] [address] [place] [address] Dr. Eusebia MoralezRBC4.16 106/ulCritically low4.20-5.40The [facility] HospitalComment on above:Performed By: #### CBC #### [facility] [address] [address] [address] Eusebia MoralezWBC7.0 103/ulNormal4.0-11.0The [facility] on above: Performed By: #### CBC #### [facility] [address] [address] [address] Eusebia Paul THYROXINE INDEX T7on 59-39-6834HZW7.60Uzwlsv5.30-4.50The [place] [facility] on above:Performed By: #### TSH, BNP, CMP, T7, LIPID ####[facility] [address] [address]Dr. Eusebia MoralezT3U35.0 %Xyjlcx29.0-39.0The [facility] on above: Performed By: #### TSH, BNP, CMP, T7, LIPID ####[facility] [address] [address]DrRadha MoralezT4 [Mass/Vol]7.00 ug/dLNormal 4.80-13.90The [facility] on above:Performed By: #### TSH, BNP, CMP, T7, LIPID ####[facility] [address] [address]Dr. Eusebia MoralezIRONon 37-27-8430Eqty [Mass/Vol]58.0 ug/dLNormal 50.0-170.0The [facility] on above:Performed By: #### IRON #### [facility] [address] [address] [address] Eusebia MoralezLIPID PROFILEon 13-27-3085OTAN-HDL RATIO NORMSSelect Medical [facility]ty [facility] [place] on above:Result Comment: 3.3 - 4.4 LOW RISK 4.4 - 7.1 AVERAGE RISK 7.1 - 11.0 MODERATE RISK >11.0 HIGH RISKPerformed By: #### TSH, BNP, CMP, T7, LIPID ####[facility] [address] [address]Dr. Eusebia MoralezCholesterol [Mass/Vol]186 mg/dLNormal<=200[facility] Dublinment on above:Performed By: #### TSH, BNP, CMP, T7, LIPID ####[facility] [address] [address]Dr. Eusebia MoralezCholesterol in HDL [Mass/Vol]45 mg/qZAwcjmn78-25QxgParkwood Hospital Comment on above:Performed By: #### TSH, BNP, CMP, T7, LIPID ####[facility] [address] [address]Dr. Eusebia Moralez Cholesterol in LDL [Mass/Vol]118.4 mg/dLSumma Health Barberton CampusComment on above:Performed By: #### TSH, BNP, CMP, T7, LIPID ####[facility] [address] [address]Dr. Eusebia Moralez Cholesterol.total/Cholesterol in HDL [Mass ratio]4.1 {ratio}NormalParkwood HospitalCombronson lakeview hospital on above:Performed By: #### TSH, BNP, CMP, T7, LIPID ####[facility] [address] [address]Dr. Eusebia ChangHDL NORMAL> or = 60 mg/dl - LOW CARDIOVASCULAR RISK <40 mg/dl - HIGH CARDIOVASCULAR RISKSumma Health Barberton CampusCombronson lakeview hospital on above:Performed By: #### TSH, BNP, CMP, T7, LIPID ####[facility] [address] [address]Dr. Eusebia ChangLDL CALC NORMALSEE BELOWSumma Health Barberton CampusComment on above:Result Comment: <100 mg/dl OPTIMAL 100 - 129 mg/dl NEAR OR ABOVE OPTIMAL 130 - 159 mg/dl BORDERLINE HIGH 160 - 189 mg/dl HIGH >190 mg/dl VERY HIGHPerformed By: #### TSH, BNP, CMP, T7, LIPID ####[facility] [address] [address]Dr. Eusebia Moralez Triglyceride [Mass/Vol]113 mg/dLNormal<=150The [facility] HospitalComment on above:Performed By: #### TSH, BNP, CMP, T7, LIPID ####[facility] [address] [address]Dr. Eusebia TylerLDL CALC22.6 mg/dLNormalThe [facility] HospitalComment on above:Performed By: #### TSH, BNP, CMP, T7, LIPID ####[facility] [address] [address]Dr. Eusebia MoralezPROF 14(COMP METB)on 92-17-5429Mpwrbjg [Mass/Vol]3.3 g/dLCritically low3.4-5.0The [facility] HospitalComment on above:Performed By: #### TSH, BNP, CMP, T7, LIPID #### [facility] [address] [address] [address] Eusebia MoralezAlbumin/Globulin [Mass ratio]0.9 {ratio}NormalThe [facility] HospitalComment on above:Performed By: #### TSH, BNP, CMP, T7, LIPID #### [facility] [address] [address] [address] Eusebia Priest [Catalytic activity/Vol]81 U/GMcaetx17-662Rlh [facility] HospitalComment on above:Performed By: #### TSH, BNP, CMP, T7, LIPID #### [facility] [address] [address] [address] Eusebia Callejas [Catalytic activity/Vol]19 U/IRraadj42-07Svb [facility] HospitalComment on above:Performed By: #### TSH, BNP, CMP, T7, LIPID #### [facility] [address] [address] [address] Eusebia Winston gap [Moles/Vol]12.3 mmol/LNormalThe [facility] Comment on above:Performed By: #### TSH, BNP, CMP, T7, LIPID #### [facility] [address] [address] [address] Eusebia Umanzor [Catalytic activity/Vol]12 U/LCritically bjn09-05Nqq [facility] HospitalComment on above:Performed By: #### TSH, BNP, CMP, T7, LIPID #### [facility] [address] [place] [address] Dr. Eusebia MoralezBilirubin [Mass/Vol]0.4 mg/dLNormal0.2-1.0The [facility] Comment on above:Performed By: #### TSH, BNP, CMP, T7, LIPID #### [facility] [address] [place] [address] Dr. Eusebia MoralezCalcium [Mass/Vol]8.9 mg/dLNormal8.5-10.1The [facility] Comment on above:Performed By: #### TSH, BNP, CMP, T7, LIPID #### [facility] [address] [place] [address] Dr. Eusebia MoralezChloride [Moles/Vol]106 mmol/MPdglhm63-028Rff [facility] Comment on above:Performed By: #### TSH, BNP, CMP, T7, LIPID #### [facility] [address] [place] [address] Dr. Eusebia MoralezCO2 [Moles/Vol]27.4 mmol/YLnlnyo80.0-32.0The [facility] Comment on above:Performed By: #### TSH, BNP, CMP, T7, LIPID #### [facility] [address] [place] [address] Dr. Eusebia MoralezCreatinine [Mass/Vol]1.51 mg/dLCritically high0.55-1.02The [facility] HospitalComment on above:Performed By: #### TSH, BNP, CMP, T7, LIPID #### [facility] [address] [place] [address] Dr. Eusebia DunlapGFR-AF TZFENAAH47 mL/min/1.57g3Uiilyzhbhp low>=60The [facility] HospitalComment on above:Performed By: #### TSH, BNP, CMP, T7, LIPID #### [facility] [address] [place] [address] Dr. Eusebia DunlapGFR-NON AF CXCEAPMW54 mL/min/1.91a8Eyynmatunl low>=60The [facility] HospitalComment on above:Performed By: #### TSH, BNP, CMP, T7, LIPID #### [facility] [address] [address] [address] Eusebia MoralezGlobulin (S) [Mass/Vol]3.5 g/dLNoMcCullough-Hyde Memorial HospitalComment on above:Performed By: #### TSH, BNP, CMP, T7, LIPID #### [facility] [address] [address] [address] Eusebia MoralezGlucose [Mass/Vol]129 mg/dLCritically cgkh03-385Clo [facility] HospitalComment on above:Performed By: #### TSH, BNP, CMP, T7, LIPID #### [facility] [address] [address] [address] Eusebia MoralezPotassium [Moles/Vol]4.7 mmol/LNormal3.5-5.1The [facility] Comment on above:Performed By: #### TSH, BNP, CMP, T7, LIPID #### [facility] [address] [place] [address] Dr. Eusebia MoralezProtein [Mass/Vol]6.8 g/dLNormal6.4-8.2The [facility] Comment on above:Performed By: #### TSH, BNP, CMP, T7, LIPID #### [facility] [address] [place] [address] Dr. Eusebia MoralezSodium [Moles/Vol]141 mmol/ACguwcv958-680Lln [facility] Comment on above:Performed By: #### TSH, BNP, CMP, T7, LIPID #### [facility] [address] [place] [address] Dr. Eusebia MoralezUrea nitrogen [Mass/Vol]37.0 mg/dLCritically high7.0-18.0The [facility] HospitalComment on above:Performed By: #### TSH, BNP, CMP, T7, LIPID #### [facility] [address] [place] [address] Dr. Eusebia Ortega nitrogen/Creatinine [Mass ratio]24.5 mg/mgNoMcCullough-Hyde Memorial HospitalComment on above:Performed By: #### TSH, BNP, CMP, T7, LIPID #### [facility] [address] [place] [address] Dr. Eusebia Vaca 35-62-3912WBZ1.068 uIU/mLCritically low0.358-3.740The [facility] HospitalComment on above:Performed By: #### TSH, BNP, CMP, T7, LIPID ####[facility] [address] [place], [place] [address]Gr. Eusebia MoralezCovid-19 PCR (CVDTB)on 30-03-4503NCON-CoV-2 (COVID-19) RNA DEREK+probe Ql (Unsp spec)Not detectedNormalNOT DETECTEDThe [facility] HospitalComment on above:Result Comment: This test is not yet approved or cleared by the [place] FDA. When there are no FDA-approved or cleared tests available, and other criteria are met, FDA can make tests available under an emergency access mechanism called an Emergency Use Authorization (EUA). The EUA for this test is supported by the [place] of Health and Human Service's (HHS's) declaration [...] symptoms consistent with SARS-CoV-2.Performed By: #### CVDTBH ####[facility] [address] [id number]. Eusebia Barreto LSPINE WO CONon 21-25-8317EKW LSPINE WO CONEXAMINATION: MRI LSPINE WO CON [...] Electronically authenticated by: AMBAR MAYA Date: 2021-10-10 07:29[facility] Progress Noteon 48-01-0257SKJ Pul[facility] NoteST[facility] Name: VERO SADLER [address] [place] [address] MR#: [id number] [place] [address] ACCT: [id number] PROGRESS NOTE- Pulmonary : [facility] Date of Service: 09/13/20 Text NAME: VERO SADLER MR#: [id number] DATE OF SERVICE: 09/13/2020 OUTPATIENT PULMONARY PROGRESS [...] disease, severity unknown. [facility] to [facility] Pt Name: VERO SADLER [address] [place] [address] MR#: [id number] [place] [address] ACCT: [id number] PROGRESS NOTE- Pulmonary : [facility] [...] postoperative management if needed. TIM TOSCANO MD DI/MODL/[id number] CC: Dr. Rito Guerrero MD eSign Date and Time Tim Toscano MD Signature on File 09/26/20 1046NormalSt. Naval Hospital OaklandGLYCO HEMOon 11-30-0342NpC0n (Bld) [Mass fraction]5.3 %NormalSt. Naval Hospital OaklandComment on above:Result Comment: Suggested Diagnosis HbA1c (%) --------- Diabetic > 6.4 Prediabetes 5.7-6.4 Normal < 5.7Performed By: #### L500.54907 #### Test performed at: [address] [address]BZT W/DIFFon 42-01-1608NPZT ABS0.0 K/uLNormal0.0-0.2St[facility] OaklandComment on above:Performed By: #### L200.08051 #### Test performed at: [address] [address]Eienmmquo/100 WBC (Bld)0.5 %NormalSt. Naval Hospital OaklandComment on above:Performed By: #### L200.61412 #### Test performed at: [address] [address]UAH ABS0.1 K/uLNormal0.0-0.5St. [facility] OaklandComment on above:Performed By: #### L200.11273 #### Test performed at: [address] [address]Elttgrzfwvo/100 WBC (Bld)1.2 %NormalSt. Naval Hospital OaklandComment on above:Performed By: #### L200.09363 #### Test performed at: [address] [address]Dwgqrbfcipj distribution width (RBC) [Ratio]12.8 %Normal 11.5-14.5St. [facility] OaklandComment on above:Performed By: #### L200.29494 #### Test performed at: [address] [address]Qfayfvckwu (Bld) [Volume fraction]40.1 %Lfswiv06.0-48.0St[facility] OaklandComment on above:Performed By: #### L200.20572 #### Test performed at: [address] [address]Lpygjxqijn (Bld) [Mass/Vol]12.4 g/mTKwfhry09.0-15.0St[facility] OaklandComment on above:Performed By: #### L200.68893 #### Test performed at: [address] [address]QP %0.3 %NormalSt. Naval Hospital OaklandComment on above:Performed By: #### L200.26974 #### Test performed at: [address] [address]HW ABS0.02 K/uLNormal0-0.05St. [facility] OaklandComment on above:Performed By: #### L200.72570 #### Test performed at: [address] [address]Wdhbxjebxdh (Bld) [#/Vol]1.3 10*3/uLNormal1.2-3.5St. [facility] OaklandComment on above:Performed By: #### L200.24852 #### Test performed at: [address] [place] [address]Bbtxamjtqky/100 WBC (Bld)16.9 %NormalSt. Naval Hospital OaklandComment on above:Performed By: #### L200.58613 #### Test performed at: [address] [address]SEL (RBC) [Entitic mass]29.0 wiVfupru00.4-34.6St. [facility] OaklandComment on above:Performed By: #### L200.64182 #### Test performed at: [address] [address]RYMV (RBC) [Mass/Vol]30.9 g/dLLow31.5-36.5St. [facility] OaklandComment on above:Performed By: #### L200.41699 #### Test performed at: [address] [address]YPI (RBC) [Entitic vol]93.7 wTQofqvt07.0-98.0St. [facility] OaklandComment on above:Performed By: #### L200.98040 #### Test performed at: [address] [address]IMWE ABS0.8 K/uLNormal0.0-1.0St. [facility] OaklandComment on above:Performed By: #### L200.17335 #### Test performed at: [address] [address]Mrexuveto/100 WBC (Bld)9.7 %NormalSt. Naval Hospital OaklandComment on above:Performed By: #### L200.37482 #### Test performed at: [address] [address]BEFXUMIWEE ABS5.5 K/uLNormal1.4-6.6St. [facility] OaklandComment on above:Performed By: #### L200.63441 #### Test performed at: [address] [address]Etonbjwonss/100 WBC (Bld)71.4 %NormalSt. Naval Hospital OaklandComment on above:Performed By: #### L200.31039 #### Test performed at: [address] [address]KIGF #0.000 K/uLNormal0-0.012St. [facility] OaklandComment on above:Performed By: #### L200.59664 #### Test performed at: [address] [address]YUTN %0.0 /100 WBCNormal0-0.2St. [facility] OaklandComment on above:Performed By: #### L200.29226 #### Test performed at: [address] [address]Rfiuyhoh mean volume (Bld) [Entitic vol]10.1 fLNormal 8.7-12.4St. [facility] OaklandComment on above:Performed By: #### L200.76903 #### Test performed at: [address] [address]Crlfewwzj (Bld) [#/Vol]236 10*3/xNDzlwyi244-209Xu. [facility] OaklandComment on above:Performed By: #### L200.57708 #### Test performed at: [address] [address]EWM (Bld) [#/Vol]4.28 10*6/uLNormal3.5-5.5St. [facility] OaklandComment on above:Performed By: #### L200.33434 #### Test performed at: [address] [address]GIB (Bld) [#/Vol]7.7 10*3/uLNormal3.9-11.0St. [facility] OaklandComment on above:Performed By: #### L200.96407 #### Test performed at: [address] [address]ISAHE PA/AP & LATERAL OR 2 VWSon 71-05-2167GQXVK PA/AP & LATERAL OR 2 VWSSTUDY: CHEST PA/AP LATERAL OR 2 VWS; 08/22/2020 2:35 pm INDICATION: COPD. COMPARISON: None. ACCESSION NUMBER(S): [id number] ORDERING CLINICIAN: Ovidio Baez FINDINGS: The lungs are clear without pleural effusion. Borderline cardiomegaly. Otherwise unremarkable mediastinum, eron, and pulmonary vasculature. Thoracic degenerative changes are present. IMPRESSION: No active disease in the chest.NormalSt. Naval Hospital OaklandCOMP META PANELon 69-97-0506Rfmnakp [Mass/Vol]3.4 g/dLNormal3.4-5.0St. [facility] OaklandComment on above:Performed By: #### L500.19472, L500.74573, L500.85850 #### Test performed at: [address] [address]CGG PHOS TOTAL88 U/XTxftsm72-055Ao. [facility] OaklandComment on above:Performed By: #### L500.64664, L500.59941, L500.58061 #### Test performed at: [address] [address]KHZ [Catalytic activity/Vol]17 U/IEamlcw20-26Tg. [facility] OaklandComment on above:Performed By: #### L500.81757, L500.63691, L500.09910 #### Test performed at: [address] [address]DNE [Catalytic activity/Vol]12 U/BTfu18-99Yy. [facility] OaklandComment on above:Performed By: #### L500.77571, L500.15802, L500.28044 #### Test performed at: [address] [address]TJYE TOTAL0.5 mg/dLNormal0.2-1.0St. [facility] OaklandComment on above:Performed By: #### L500.48257, L500.00430, L500.82267 #### Test performed at: [address] [address]Cxdjetw [Mass/Vol]9.0 mg/dLNormal8.5-10.1St. [facility] OaklandComment on above:Performed By: #### L500.36814, L500.05112, L500.19751 #### Test performed at: [address] [address]Bnhphrch [Moles/Vol]107 mmol/DOgydfh54-624Og. [facility] Hospital OaklandComment on above:Performed By: #### L500.60092, L500.96017, L500.69207 #### Test performed at: [address] [address]HN6 [Moles/Vol]29 mmol/MVdsjvc98-53Bl. [facility] OaklandComment on above:Performed By: #### L500.95573, L500.95395, L500.60867 #### Test performed at: [address] [address]Nbbigvwkte [Mass/Vol]1.280 mg/dLHigh0.550-1.020St. [facility] OaklandComment on above:Performed By: #### L500.07959, L500.01902, L500.63901 #### Test performed at: [address] [address]Xtmnvao [Mass/Vol]90 mg/xCFlgcra07-98Gv. [facility] OaklandComment on above:Result Comment: Fasting GLUCOSE reference range has been updated per (ADA) [place] [employer]'s recommendation. 06/07/2018Performed By: #### L500.36298, L500.43798, L500.01999 #### Test performed at: [address] [address]Avtkgrjnl [Moles/Vol]4.4 mmol/LNormal3.5-5.1St. [facility] OaklandComment on above:Performed By: #### L500.29241, L500.72159, L500.84572 #### Test performed at: [address] [address]Jamaotg [Mass/Vol]6.8 g/dLNormal6.4-8.2St. [facility] OaklandComment on above:Performed By: #### L500.81480, L500.20634, L500.66147 #### Test performed at: [address] [address]Ndcjtv [Moles/Vol]142 mmol/WVxqzzd333-832Eg. [facility] Hospital OaklandComment on above:Performed By: #### L500.90427, L500.13985, L500.52560 #### Test performed at: [address] [address]Iqsd nitrogen [Mass/Vol]21 mg/dLHigh7-18St. [facility] OaklandComment on above:Performed By: #### L500.38043, L500.80645, L500.67867 #### Test performed at: [address] [address]KBY ESTIMATEon 60-34-0026BL PBTN29Gsk> 60St. [facility] OaklandComment on above:Result Comment: eGFR (Estimated GFR) Units of measure:mL/min/1.73 meters sq. *CALCULATION REVISED 01/01/2015;IDMS-traceable MDRD equation eGFR is derived from the reexpressed MDRD Study equation using the following parameters: serum creatinine, age, gender and race. An eGFR<60 mL/min/1.73m2 for >3 months is consistent with chronic kidney disease. Refer to KDOQI guidelines for clinical interpretation.Performed By: #### L500.00816, L500.97408, L500.87745 #### Test performed at: [address] [address]QX non-AFR VYAU30Hnf> 60[facility] Comment on above:Performed By: #### L500.12038, L500.60319, L500.01657 #### Test performed at: [address] [address]HEX ULTRA SENSon 27-24-4825QYP ULTRA SENS< 0.005Low 0.358-3.74St. [facility] Hospital OaklandComment on above:Performed By: #### L500.73122, L500.65232, L500.36736 #### Test performed at: [address] [address]SQKI SP COMP W FLEX/EXT 6 VWSon 19-60-2963BJKB SP COMP W FLEX/EXT 6 VWSSTUDY: LUMB SP COMP W FLEX/EXT 6 VWS ; 07/23/2020 9:01 am INDICATION: PAIN. COMPARISON: None. ACCESSION NUMBER(S): [id number] ORDERING CLINICIAN: Sacha Guerrero FINDINGS: No fracture [...] changes of the lumbar spine without instability.NormalSt. Naval Hospital Oakland Vital Signs Date TimeVital SignValuePerforming SduliicfcKgnanldd33-63-7949 09:10-0500 Diastolic blood scqxsuir43 mm[Hg]Debbie Bhatia MD Work Phone: 1(151)[facility]-[address] [place], [place] 4392511-10-2025 09:10-0500 Heart rate78 /Ivon Bhatia MD Work Phone: [phone] [place], [place] 5275611-10-2025 09:10-0500 Respiratory rate16 /Ivon Bhatia MD Work Phone: [phone] [place], [place] 5275611-10-2025 09:10-0500 SaO2% (BldA) [Mass fraction]98 %Debbie Bhatia MD Work Phone: [phone] [place], [place] 5275611-10-2025 09:10-0500 Systolic blood ehjbylzl332 mm[Hg]Debbie Bhatia MD Work Phone: [phone] [place], [place] 5275611-10-2025 07:39-0500 Body juwtcb615.1 cmDosissy Bhatia MD Work Phone: [phone] [place], [place] 5275611-10-2025 07:39-0500 Body tsuwoh997.27 kgDebbie Bhatia MD Work Phone: [phone] [place], [place] 5275609-23-2025 10:45-0400 Body idtdro959.6 cmJohn Mathews MD Work Phone: [phone] [place], [place] [address] HospitalHnbwngpaft78-98-0055 10:45-0400Body mass index (BMI) [Ratio]47.2 kg/d1EjxewtJohn Mathews MD Work Phone: [phone]-[facility] HospitalJfzehvbfsh07-50-6320 10:45-0400Body .74 kgJohn Mathews MD Work Phone: [phone]-[facility] [address]Oaeklpcuka20-15-9939 10:45-0400Diastolic blood xfuxhsrb79 mm[Hg]John Mathews MD Work Phone: [phone]-[facility] HospitalGwclchmuwd67-30-9245 10:45-0400Heart rate75 /min John Mathews MD Work Phone: [address] [address]Muamgdhbwe86-39-3885 10:45-0400Systolic blood sohtznbp214 mm[Hg]John Mathews MD Work Phone: [facility] HospitalUphmzjycvm31-95-7818 11:07-0400Body gdawea851.56 cmDebbie Bhatia MD Work Phone: [phone] [place], [place] 5275607-24-2025 11:07-0400 Body mass index (BMI) [Ratio]49.8 kg/a2ToiymtyDebbie Bhatia MD Work Phone: [phone] [place], [place] 5275607-24-2025 11:07-0400 Body gacfwi638.54 kgDebbie Bhatia MD Work Phone: [phone] [place], [place] 5275607-24-2025 11:07-0400 Diastolic blood mm[Hg]Debbie Bhatia MD Work Phone: [phone] [place], [place] 5275607-24-2025 11:07-0400 Heart rate79 /Ivon Bhatia MD Work Phone: [phone] [place], [place] 5275607-24-2025 11:07-0400 Respiratory rate16 /Ivon Bhatia MD Work Phone: [phone] [place], [place] 5275607-24-2025 11:07-0400 SaO2% (BldA) [Mass fraction]97 %Debbie Bhatia MD Work Phone: [phone])[address] [place], [place] 5275607-24-2025 11:07-0400 Systolic blood uvalcqag441 mm[Hg]Debbie Bhatia MD Work Phone: [phone] [place], [place] 5275606-30-2025 13:21-0400 Body msneyd130.6 William Mathews MD Work Phone: [phone] HospitalUkcoufqenp54-94-8904 13:21-0400Body mass index (BMI) [Ratio]50.46 kg/n5XvgmswJohn Mathews MD Work Phone: [phone]-[facility] HospitalLwflboruyc11-48-4185 13:21-0400Body .36 kgJohn Mathews MD Work Phone: [phone])389-[facility] HospitalRbqduayigt41-10-0995 13:21-0400Diastolic blood gxgqxerd81 mm[Hg]John Mathews MD Work Phone: 1(990)[address] [place], [place] 6285206-30-2025 13:21-0400Heart rate84 /min John Mathews MD Work Phone: 1(654)[address] [place], [place] 6285206-30-2025 13:21-0400Systolic blood uzrkcmyr206 mm[Hg]John Mathews MD Work Phone: 1(781)[address] [place], [place] 6285205-28-2025 09:39-0400Body .6 cmJohn Mathews MD Work Phone: 1(174)[address] [place], [place] 6285205-28-2025 09:39-0400Body mass index (BMI) [Ratio]50.46 kg/a6WjdcccJohn Mathews MD Work Phone: 1(146)[address] [place], [place] 6285205-28-2025 09:39-0400Body iqozmf254.36 kgJohn Mathews MD Work Phone: 1(029)[address] [place], [place] 6285205-28-2025 09:39-0400Diastolic blood osntbfot83 mm[Hg]John Mathews MD Work Phone: 1(250)[address] [place], [place] 6285205-28-2025 09:39-0400Heart rate80 /min John Mathews MD Work Phone: 1(929)[address] [place], [place] 6285205-28-2025 09:39-0400Systolic blood mm[Hg]John Mathews MD Work Phone: 1(417)[address] [place], [place] 6285205-07-2025 14:20-0400Diastolic blood bvbpescy68 mm[Hg]Debbie Bhatia MD Work Phone: 1(141)866-[address] [place], [place] 4392505-07-2025 14:20-0400 Heart rate67 /Ivon Bhatia MD Work Phone: [facility]05-07-2025 14:20-0400 Respiratory rate18 /Ivon Bhatia MD Work Phone: 1(318)803-[address] [place], [place] 4392505-07-2025 14:20-0400 SaO2% (BldA) [Mass fraction]98 %Debbie Bhatia MD Work Phone: [facility]05-07-2025 14:20-0400 Systolic blood xigukfbx988 mm[Hg]Debbie Bhatia MD Work Phone: [facility]05-07-2025 11:23-0400 Body ggdlbi017.56 cmDebbie Bhatia MD Work Phone: [facility]05-07-2025 11:23-0400 Body .81 kgDebbie Bhatia MD Work Phone: 1(867)567-[address] [place], [place] 4392505-01-2025 10:50-0400 Blood Pressure LocationKWABENA NKANSAH-AMANKRA [address] [place], [place] 6280605-01-2025 10:50-0400 Diastolic blood gdvuniaw14 mm[Hg]ROSETTA NKANSAH-AMANKRA [facility]05-01-2025 10:50-0400Heart rate74 /minKWABENA NKANSAH-AMANKRA [facility]05-01-2025 10:50-4952KgD3% (BldA) [Mass fraction]94 %ROSETTA NKANSAH-AMANKRA [facility]05-01-2025 10:50-0400 Systolic blood mm[Hg]ROSETTA NKANSAH-AMANKRA [facility]05-01-2025 09:45-0400Blood Pressure LocationKWABENA NKANSAH-AMANKRA [facility]05-01-2025 09:45-0400Body wueqmppbcam42.34 [degF]ROSETTA NKANSAH-AMANKRA [facility]05-01-2025 09:45-0400 Diastolic blood kfetefbe09 mm[Hg]ROSETTA NKANSAH-AMANKRA [facility]05-01-2025 09:45-0400Heart rate67 /minKWABENA NKANSAH-AMANKRA [facility]05-01-2025 09:45-0400Mean blood ytkmepez104 mm[Hg]ROSETTA NKANSAH-AMANKRA [facility]05-01-2025 09:45-0400 Respiratory rate13 /minKWABENA NKANSAH-AMANKRA [facility]05-01-2025 09:45-5419IoN8% (BldA) [Mass fraction]93 %ROSETTA NKANSAH-AMANKRA [facility]05-01-2025 09:45-0400 Systolic blood nztloyxx617 mm[Hg]ROSETTA NKANSAH-AMANKRA [facility]05-01-2025 09:44-0652WmH9% (BldA) [Mass fraction]91 %ROSETTA NKANSAH-AMANKRA [facility]05-01-2025 09:30-0400 Respiratory rate13 /minKWABENA NKANSAH-AMANKRA [facility]05-01-2025 09:30-0400Heart rate68 /minKWABENA NKANSAH-AMANKRA [facility]05-01-2025 09:30-0400Blood Pressure LocationKWABENA NKANSAH-AMANKRA [facility]05-01-2025 09:30-0400 Diastolic blood dakulpmk91 mm[Hg]ROSETTA NKANSAH-AMANKRA [address] [place], [place] 6280605-01-2025 09:30-0400Mean blood lvuxfhlf99 mm[Hg]ROSETTA NKANSAH-AMANKRA [address] [place], [place] 6280605-01-2025 09:30-0400 Systolic blood mm[Hg]ROSETTA NKANSAH-AMANKRA [address] [place], [place] 6280605-01-2025 09:25-0400 Respiratory rate18 /minKWABENA NKANSAH-AMANKRA [address] [place], [place] 6280605-01-2025 09:25-0400Mean blood mm[Hg]ROSETTA NKANSAH-AMANKRA [address] [place], [place] 6280605-01-2025 09:20-0400 Respiratory rate12 /minKWABENA NKANSAH-AMANKRA [address] [place], [place] 6280605-01-2025 09:15-0400Body aqoxsvmuoqd88.16 [degF]ROSETTA NKANSAH-AMANKRA [address] [place], [place] 6280605-01-2025 09:15-0400 Respiratory rate12 /minKWABENA NKANSAH-AMANKRA [address] [place], [place] 6280605-01-2025 07:27-0400Mean blood mm[Hg]ROSETTA NKANSAH-AMANKRA [address] [place], [place] 6280605-01-2025 07:26-0400Mean blood onyllgqc323 mm[Hg]ROSETTA NKANSAH-AMANKRA [address] [place], [place] 6280605-01-2025 07:24-0400 Respiratory rate20 /minKWABENA NKANSAH-AMANKRA [address] [place], [place] 6280605-01-2025 07:24-0400Body wxazzrvltmp57.7 [degF]ROSETTA NKANSAH-AMANKRA [facility]04-15-2025 11:14-0400Body .02 cmR[facility]04-15-2025 11:14-0400Body mass index (BMI) [Ratio]53 kg/j8VywnxkbbwRiverview Health Institute04-15-2025 11:14-0400Body zzgesbgbcbv29.6 [degF][facility]04-15-2025 11:14-0400Body xoupva082.79 kgRiverview Health Institute04-15-2025 11:14-0400Diastolic blood sszlktin92 mm[Hg][facility] 06-27-2024 11:14-0400Heart sioo151 /[facility] 06-27-2024 11:14-0400Respiratory rate18 /[facility] 06-27-2024 11:14-9326NvN9% (BldA) [Mass fraction]93 %[facility]04-15-2025 11:14-0400Systolic blood odandvsk964 mm[Hg][facility]04-14-2025 13:31-0400Heart rate67 /Efraín DESAI-AMANKRA [facility]04-14-2025 13:31-9596DfX3% (BldA) [Mass fraction]94 %ROSETTA DESAI-AMANKRA [facility]04-14-2025 13:30-0400 Respiratory rate20 /TaneshaNA ROBBANSAH-AMANKRA [facility]04-08-2025 09:36-0400Body wtqyet023.6 cmJohn Mathews MD Work Phone: [facility] HospitalFmxjoxoxpv90-31-9970 09:36-0400Body mass index (BMI) [Ratio]50.46 kg/g9IlejnvJohn Mathews MD Work Phone: [facility] HospitalUlnpfrxsga82-89-6032 09:36-0400Body vlovfh330.36 kgJohn Mathews MD Work Phone: 1(141)[address] [place], [place] 6285204-08-2025 09:36-0400Diastolic blood jyqzxjoh14 mm[Hg]John Mathews MD Work Phone: 1(741)[address] [place], [place] 6285204-08-2025 09:36-0400Systolic blood xovrxyhd262 mm[Hg]John Mathews MD Work Phone: 1(107)[address] [place], [place] 6285202-25-2025 08:38-0500Body udrcvb373.6 cmJohn Mathews MD Work Phone: 1(632)[address] [place], [place] 6285202-25-2025 08:38-0500Body mass index (BMI) [Ratio]50.81 kg/h6JbawnbJohn Mathews MD Work Phone: 1(391)[address] [place], [place] 6285202-25-2025 08:38-0500Body adhhlx218.26 kgJohn Mathews MD Work Phone: 1(699)[address] [place], [place] 6285202-25-2025 08:38-0500Diastolic blood zctoadkj95 mm[Hg]John Mathews MD Work Phone: 1(478)[address] [place], [place] 6285202-25-2025 08:38-0500Heart rate87 /min John Mathews MD Work Phone: 1(920)[address] [place], [place] 6285202-25-2025 08:38-0500Systolic blood rswkeinn554 mm[Hg]John Mathews MD Work Phone: 1(092)[address] [place], [place] 6285201-17-2025 14:50-0500Blood Pressure LocationKCARMEN DESAI-ANDREEAANK [facility]01-17-2025 14:50-0500Diastolic blood mm[Hg]ROSETTA DESAI-AMANK [facility]01-17-2025 14:50-0500Heart rate86 /minKCARMEN DESAI-AMANKRA [facility]01-17-2025 14:50-0500Respiratory rate16 /Efraín MENDEZ [facility]01-17-2025 14:50-0500Systolic blood tfpeqgjy398 mm[Hg]ROSETTA MENDEZ [facility] [place] 235910-24-2024 13:02-0400Body zvoreb143.56 cmR[facility]10-24-2024 13:02-0400Body mass index (BMI) [Ratio]50.5 kg/u4CkpslgnvjRiverview Health Institute10-24-2024 13:02-0400Body ixmlclegyem43.3 [degF][facility]10-24-2024 13:02-0400Body qittxd573.46 kgRiverview Health Institute10-24-2024 13:02-0400Diastolic blood bogsvqlv14 mm[Hg] [facility]10-24-2024 13:02-0400Heart rate81 /[facility]10-24-2024 13:02-0400Respiratory rate18 /[facility]10-24-2024 13:02-0714AmJ8% (BldA) [Mass fraction]98 % [facility]10-24-2024 13:02-0400Systolic blood mm[Hg][facility] Encounters Encounter DateEncounter TypeCare ProviderFacilityStart: 59-45-7601plfkddhitoKP ROSETTA DESAIDEBORAHFacility:EU [place]walkStart: 01-22-2025 End: 85-49-1819eykxgtabtcAtsq TracyFacility:[facility] Start: 89-98-2758Tny-patient / Non-visitImad Tracy BELTRÁN-[facility] Work Phone: Start: 12-05-2024 End: 82-34-7231Qhfwdyrashad Mathews MD Work Phone: noms [place] OtolaryngologyStart: 12-05-2024 End: 45-49-1276Uupffdrashad Mathews MD Work Phone: [facility] [place] OtolaryngologyStart: 12-05-2024 End: 76-55-4863Exhtno outpatient visit 25 minutesJohn Mathews MD Work Phone: [facility] [place] OtolaryngologyComment on above:Acute URI (Primary Dx); ETD (Eustachian tube dysfunction), rightStart: 12-05-2024 End: 16-13-8355heqisapvmgWVHELK H TIMMISNot AvailableStart: 76-64-9201xufjntepwu JOSEY [facility]tart: 10-24-2024 End: 62-13-0901zppropuvskUSKP [facility] Hospitaltart: 10-23-2024 End: 63-44-1260cbberxnrlnKheqjfw Vytautas Giedraitis MDFacility:[facility] Start: 10-16-2024 End: 68-39-8165takibxplozUqqeyax Vytautas Giedraitis Facility:[facility] Start: 10-05-2024 End: 90-04-5756ldgyzjyurvCfsroas M Hoy MD Work Phone: [facility] Work Phone: Start: 10-05-2024 End: 93-26-0355Vttsygm encounter procedureLizette Schaffer MD-[facility] Work Phone: Start: 09-25-2024 End: 58-63-2063pfpcxwkpmuHpzvjap Vytautas Gijunaid BELTRÁNFacility:PM [place] Start: 09-22-2024 End: 94-17-1313Tdquvdi encounter procedureLizette Schaffer MD-[facility] Work Phone: Start: 09-22-2024 End: 19-11-7052kuuqzzmnduZtetqsw M Hoy MD Work Phone: [facility] Work Phone: Start: 09-11-2024 End: 61-61-6299Llyixn Tom Mathews MD Work Phone: noms CI ENTStart: 09-11-2024 End: 56-81-3176Anwmth flowsheetJohn Mathews MD Work Phone: noms CI ENTStart: 09-11-2024 End: 08-77-4273Tuilmk outpatient visit 15 minutesJohn Mathews MD Work Phone: noms CI ENTComment on above:ETD (Eustachian tube dysfunction), right (Primary Dx); Chronic mastoiditis, rightStart: 09-11-2024 End: 32-82-3339yawsxsrkcpBSTXGD H TIMMISNot AvailableStart: 08-25-2024 End: 48-48-7313aaoosnovadFNOTNWG [facility] Hospitaltart: 90-47-1210kbnzrshpqsWOFT [facility] Hospitaltart: 80-54-0682vapunhrbqvTZIV [facility] Hospitaltart: 08-21-2024 End: 74-43-2603glpjkkpujlFY ROSETTA MENDEZFacility:EU LupekStart: 08-21-2024 End: 02-22-9384Yiwiojp encounter procedureKCARMEN MENDEZ [facility] Start: 08-15-2024 End: 10-84-1725Gthxqbjdl Result EncounterHishondary Yadira Mathews MD Work Phone: noms External Department UnsolicitedStart: 08-15-2024 End: 36-63-3646Vhppdkgwq Result EncounterHilary H Timmis MD Work Phone: noms External Department UnsolicitedStart: 08-09-2024 End: 86-54-8312Knkite flowsheetJohn Mathews MD Work Phone: noms CI ENTStart: 08-09-2024 End: 24-19-2981Ukyjjl flowsheetJohn Mathews MD Work Phone: noms CI ENTStart: 08-09-2024 End: 32-06-5868Rcpniv outpatient visit 25 minutesHimary Mathews MD Work Phone: noms CI ENTComment on above:ETD (Eustachian tube dysfunction), right (Primary Dx); CSF otorrhea; Chronic myringitis of right earStart: 08-09-2024 End: 10-04-9688gxmrgwynmhQNNZTZ H TIMMISNot AvailableStart: 75-24-4877Rvl- patient / Non-visitDosissy Bhatia MD Work Phone: [facility] Work Phone: Start: 07-19-2024 End: 83-33-1579Gfpcsmvwa to same day surgery curwensvilleDebbie Bhatia MD Work Phone: [facility] Work Phone: Start: 07-19-2024 End: 41-01-3127pngfumqfduXhxntxa M Hoy MD Work Phone: [facility] Work Phone: Start: 25-10-6394cityapokfgNMOX [facility] Hospitaltart: 07-13-2024 End: 69-30-7896Eyamdhhmm to same day surgery Stepan MENDEZ [facility] Start: 07-13-2024 End: 05-95-9157avgmzmpnxfSLMD ROSETTA MENDEZFacility:FTMCStart: 06-27-2024 End: 44-65-3503lxduggahbeQmuuvxbwhMercy Health [facility] Hospital Work Phone: Start: 06-27-2024 End: 12-44-7818Atedhxc encounter procedureCritical Access Hospital Physician GroupSchneck [facility] Center Work Phone: Start: 06-26-2024 End: 08-64-7021Zrvbvsavc Result EncounterJohn Mathews MD Work Phone: noms External Department UnsolicitedStart: 06-26-2024 End: 92-30-2965Szydtudtl Result EncounterJohn Mathews MD Work Phone: noms External Department UnsolicitedStart: 06-26-2024 End: 18-61-5845ebefjavnozXCWFPKFThomas MENDEZFacility:FTMCStart: 06-26-2024 End: 01-77-7334Zrcxdvi encounter procedureROSETTA MENDEZ [facility] Start: 06-20-2024 End: 71-01-8814Nrywvy flowsAmanda Mathews MD Work Phone: noms CI ENTStart: 06-20-2024 End: 06-25-2305Imsrvz Tom Mathews MD Work Phone: NOSP CI ENTStart: 64-22-6187Mfp-patient / Non-visit [facility] Work Phone: Start: 06-20-2024 End: 84-43-2847Bqvgie outpatient visit 25 minutesJohn Mathews MD Work Phone: noms CI ENTComment on above:OME (otitis media with effusion), right (Primary Dx); ETD (Eustachian tube dysfunction), right; 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Start: 06-20-2024 End: 40-21-7446xphokmgwosTWLWGC H TIMMISNot AvailableStart: 05-19-2024 End: 14-52-6119pmgqbltxwjFZGMSJXThomas MENDEZFacility:EU [place]kyStart: 05-09-2024 End: 25-03-9597Uuxsvm flowsheetJohn Mathews MD Work Phone: NOMS CI ENTStart: 05-09-2024 End: 48-80-2666Ghnbjo flowsheetJohn Mathews MD Work Phone: NOFJ CI ENTStart: 05-09-2024 End: 92-63-7575Gyjhzztmx Result EncounterJohn Mathews MD Work Phone: NOLE External Department UnsolicitedStart: 05-09-2024 End: 08-71-3254nihrjtanxrTDLWWilson Healthtart: 05-09-2024 End: 43-70-6706Pnzltr outpatient new 45 minutesJohn Mathews MD Work Phone: noms CI ENTComment on above:OME (otitis media with effusion), right (Primary Dx); Nonintractable headache, unspecified chronicity pattern, unspecified headache typeStart: 05-09-2024 End: 50-75-6946atzbnmwipvYUVTXS Yadira MORANSNot AvailableStart: 05-05-2024 End: 67-60-6439bjyzcahhseNJIBDCD NKANSAH-AMANKRAFacility:EU uskyStart: 05-05-2024 End: 30-16-7118Ptnearw encounter procedureROSETTA MENDEZ [facility] Start: 05-01-2024 End: 28-43-3403olmpcrjtmpThvesijKale Garcia MDFacility:KYLEIGH Ledesma Start: 03-31-2024 End: 38-72-7030oyygpjbjkpBrancys HoyFacility:EU [place]kyStart: 03-31-2024 End: 95-51-0134Xvmidqt encounter procedureMikkiCARMEN ZAMUDIOGARYCLAUDIOMichaelCHRIS [facility] Start: 45-22-5445llvwdxnidnVKHSWPA NKANSAH-AMANKRA Facility:EU [place]kyStart: 02-14-2024 End: 58-28-7152anmdqbldxyVxfaftt Vytphillip Gieditis MDFacility:[facility] Start: 02-08-2024 End: 68-77-3008lgbenkzedvIUAYPaulding County Hospitaltart: 01-26-2024 End: 33-32-6330zudbuymwelSSHFThe University of Toledo Medical Centertart: 01-06-2024 End: 78-42-1437fbkgxmjjpfZbkmhiglfMercy Health Allen Hospital Work Phone: Start: 01-06-2024 End: 40-84-7110Zlkjywq encounter procedureCritical Access Hospital Physician Group-[facility] [place] Work Phone: Start: 11-23-2023 End: 80-15-7510Wphttijtn for other specified special examinationsRYAN López [facility] Centertart: 11-23-2023 End: 33-91-0462gkvcolksdeYEDGY J. [facility] Start: 07-17-2022 End: 31-47-7618suemhylhsfOQLD CHACKOFacility:R8Nrrww: 07-02-2022 End: 62-69-5479piyjzzqzrmOOMG CHACKOFacility:N4Qmebn: 11-36-6545qiqawlebxpWX DEBBIE HOY .Facility:B3Cvldu: 03-09-2022 End: 25-16-4021sprfvhnoljXB DEBBIE HOY .Facility:R6Wpkvj: 02-23-2022 End: 84-91-4293qroypsipurBG DEBBIE HOY .Facility:C7Yukqg: 02-02-2022 End: 16-03-6242eoojssmlgeQR DEBBIE HOY .Facility:B3Pyuco: 01-26-2022 End: 12-82-7638xsgqppasmzFI DEBBIE HOY .Facility:C6Ueocb: 01-23-2022 End: 91-93-7152bqztkxohbxFF DEBBIE HOY .Facility:V5Btvtq: 01-21-2022 End: 45-02-5391ektzldxklpXJ DEBBIE HOY .Facility:V5Jhisy: 01-14-2022 End: 99-62-5840qejimkdtveKY DEBBIE HOY .Facility:L1Earms: 10-28-2021 End: 53-91-7112xtvxyqnsetHK DEBBIE HOY .Facility:A6Xjils: 10-09-2021 End: 73-60-6675djjcurgddkPM DEBBIE HOY .Facility:D1Ltvqc: 08-12-2021 End: 88-90-2138gtodkmcigrCD DEBBIE HOY .Facility:M0Nmhyr: 62-02-9827zlbkbnvttn DR DEBBIE BHATIA .Facility:M9Wowrc: 09-29-2016 End: 02-43-7105QaqbaejdflFSDRALC PHYSICIANFacility:[facility] Procedures DateProcedureProcedure DetailPerforming ClinicianStart: 65-70-6829Uhdwk culture Debbie Bhatia MD Work Phone: Start: 09-53-2196Rnosk immunofixationDebbie Bhatia MD Work Phone: Comment on above:No monoclonality detected.Start: 96-95-9273Bz orbit sella/post fossa/ear w/o contrast matrlHimary Mathews MD Work Phone: Start: 38-40-6994DnnklchrgmuZvwffhv Hoy MD Work Phone: Start: 83-62-5730BhpiracudpPUGFLTI NKANSAH-AMANKRA Start: 59-50-8781IKW APTTHimary Mathews MD Work Phone: Start: 51-47-3794BALGOQ PROTHROMBIN TIME INR W/O COUM John Mathews MD Work Phone: Start: 15-14-6515Cgqytskv cystoscope (physical object) ROSETTA ZAMUDIOANSAH-AMANKRA Start: 77-82-0858Sjqmv sinuses paranasal compl minimum 3 viewsHilary H Ana M BELTRÁN Work Phone: Start: 02-09-2023 End: 41-66-0942LwtahgdjkmhHZHATKK NKANSAH-AMANKRA Start: 35-05-2642FahlwtiuknsJVPEXEH NKANSAH-AMANKRA Cataract extraction and insertion of intraocular lens ROSETTA NKANSAH-AMANKRA ft (qualifier value)ROSETTA NKANSAH-AMANKRA H/O: hysterectomyKDRISSBENA NKANSAH-AMANKRA HysterectomyCHAYBENA NKANSAH-AMANKRA ProcedureKDRISSBENA NKANSAH-AMANKRA Total hysterectomyKDRISSBENA NKANSAH-AMANKRA Plan of Treatment DateCare ActivityDetailAuthorStart: 98-45-9487Qxkkuhjak for malignant neoplasm of colonNOMS HealthcareStart: 09-11-2025 End: 85-14-7959Smaescr encounter ytfyryfxv99/30/2026 10:20 AM EDT Office Visit [facility] [address] [place] [id number] John Mathews MD [address] [place] [address] NOMKaykay Herrera OtolaryngologyStart: 01-22-2025 [facility] Avontart: 12-05-2024 End: 12-22-0665Vnzcfeh encounter zpzrzgpwe72/23/2025 10:50 AM EDT Office Visit [facility] [place] [facility] [address] [place] [address] John aMthews MD [address] [place] [address] ArrivedNOMS [place] OtolaryngologyComment on above:ArrivedStart: 29-14-8660Fzlbzeals vaccinationNOMS HealthcareStart: 44-53-6953Zzkrgfiu identified in Urine by CultureUrine [facility] Centertart: 34-18-1295Izkrznumjaebhk for UrineSelect Medical [facility], Avontart: 08-68-7669Chlqz cultureRiverview Health Institute Start: 50-80-9020XpmemvdrgSelect Medical [facility], Avontart: 09-11-2024 End: 45-17-5524Kjufyyg encounter hanrmuejn49/30/2025 1:30 PM EDT Office Visit [facility] [address] [place] [address] John Mathews MD [address] [place] [address] ArrivedNOMS CI ENTComment on above:ArrivedStart: 08-30-2024 End: 39-17-7846Uepquii encounter msszkwput88/18/2025 9:50 AM EDT Office Visit [facility] [address] [place] [address] John Mathews MD [address] [place] [address] NOMS CI ENTStart: 08-09-2024 End: 56-41-5389Clgrtkm encounter procedureNOMS CI ENTComment on above:Arrived Start: 07-19-2024 End: 99-59-3359IshazshxsSelect Medical [facility], Avontart: 06-20-2024 End: 19-28-2371Kiyjhqd encounter procedureNOMS CI ENTComment on above:Arrived Start: 05-09-2024 End: 75-91-4096Faehiyd encounter xqczimkuj42/25/2025 8:40 AM EST Office Visit [facility] [address] [facility] [address] [place] [address] John Mathews MD [address] [facility] [address] [place] [address] ArrivedNOMS CI ENTComment on above:ArrivedStart: 83-81-3133Njoryyloh vaccinationInfluenza Vaccine (#1)[facility] HealthcareStart: 88-38-7144Xsrtnudskwti Vaccine: 65+ Years (1 of 1 - PCV)Pneumococcal Vaccine: 65+ Years (1 of 1 - PCV)[facility] HealthcareStart: 37-02-1442Hqkbxjilgxhi Vaccine: 65+ Years (1 of 1 - PCV)Pneumococcal Vaccine: 65+ Years (1 of 1 - PCV)[facility] HealthcareStart: 22-83-4345Fvqaelbfz for malignant neoplasm of breastMammogram [facility] HealthcareStart: 99-55-0242Gwzjscvrc for malignant neoplasm of colonNOMS HealthcareAlbumin [Mass/volume] in Serum or [facility] GeneralAlbumin/Globulin ratioRiverview Health InstituteElectrophoresis: tvvvh-1-gdfzyrwcAgifaxkteRiverview Health InstituteElectrophoresis: nmprr-0-cwmumzczFdyucwvxzRiverview Health InstituteElectrophoresis: beta-globulin [facility] InstituteElectrophoresis: gamma globulinRiverview Health InstituteGlobulin [Mass/volume] in SerumRiverview Health InstituteIgA [Mass/volume] in Serum or PlasmaRiverview Health InstituteIgG [Mass/volume] in Serum or [facility] GeneralIgM [Mass/volume] in Serum or [facility] GeneralImmunofixation for UrineRiverview Health InstituteKasierra vista [facility] light chains.free [Mass/volume] in [facility] light chains.free/Lambda light chains.free [Mass Ratio] in TriHealthLambda light chains.free [Mass/volume] in Serum or [facility] Patient EducationSelect Medical Specialty [facility] Work Phone: Protein [Mass/volume] in Serum or PlasmaRiverview Health InstituteRenal function 1999 panel - Serum or PlasmaRiverview Health InstituteRenal function 1999 panel - Serum or PlasmaRiverview Health InstituteRenal function 1999 panel - Serum or [facility] Hospitalerum immunofixationKaiser Foundation Hospital Immunizations Immunization DateImmunizationNotesCare [id number]-RwE-4 (COVID-19) mRNA BNT-162b2 kitKCARMEN MENDEZ [id number]-SgpmnMercy Health [facility] Surgery [facility] [place] [id number]-CoV-2, UnspecifiedJohn Mathews MD Work Phone: [facility] HospitalMycktpcolg06-04-8938IVCB-BeV-2 (COVID-19) mRNA BNT-162b2 hanCARMEN DESAI-CHRIS [phone]-FjtpnMercy Health [facility] [place] Payers DatePayer CategoryPayerPolicy [id number] 2018Private Health Insurance [id number] 2014Medicare [id number] [id number] 2.16.840.1.945604.3.57[id number] 2.16.840.1.447279.3.57[id number] 2.16.840.1.890327.3.57[id number] 2.16.840.1.796798.3.57[id number] 2.16.840.1.721300.3.57[id number] 2.16.840.1.292899.3.57[id number] 2.16.840.1.366316.3.57[id number] 2.16.840.1.615919.3.57[id number] 2.840.1.952709.3.579.[id number] 2.16.840.1.332896.3.57[id number] 2.840.1.178020.3.57[id number] 2.840.1.032191.3.57[id number] 2.840.1.418033.3.57[id number] 2.16.840.1.396851.3.57[id number] 2.16.840.1.522591.3.57[id number] 2.16840.1.102277.3.57[id number] 2.16.840.1.585437.3.57[id number] 2.16.840.1.756969.3.57[id number] 2.16.840.1.847892.3.579.[id number] 2.16.840.1.080843.3.579.[id number] 2.16.840.1.937433.3.579.[id number] 2.16.840.1.094056.3.579.[id number] 2.840.1.010594.3.579.[id number] 2.16.840.1.661397.3.579.[id number] 2..0.1.579679.3.579.[id number] 2..840.1.895362.3.579.[id number] 2..840.1.643585.3.579.[id number] 2.16.840.1.740322.3.579.[id number] 2..840.1.570518.3.579.[id number] 2.16.840.1.766040.3.579.[id number] 2.16.840.1.200563.3.579.2.5341JozvvpuNKL702X70568 2e026118-7pc7-83v0-02y7-[id number] 2.16.840.1.68804[id number] 2.16.840.1.820237.3.579.2.531 [id number] 2.16.840.1.907862.3.579.2.531 Social History DateTypeDetailFacilityStart: 01-06-2024 End: 17-14-0041Aigruho smoking status NHISEx-smoker (finding)[facility], Avontart: 20-22-9264Umk Assigned At [facility] HospitalTobacc smoking statusNeverExecutive [facility] of [facility] SanduskyStart: 05-09-2024 End: 82-26-6307Gga Assigned At [facility] CenterTobacco smoking status NHISTobacco smoking consumption unknownNOMS HealthcareStart: 94-10-6142Rdj assigned at birthNot on fileNOMS HealthcareStart: 05-09-2024 Tobacco smoking status NHISNever smoked tobaccoNOMS HealthcareStart: 05-09-2024 Tobacco use and exposureSmokeless tobacco non-userNOMS HealthcareStart: 05-09-2024 End: 45-44-6696Wtsngpzek beverage intakeEx-drinker (finding)[facility] Start: 05-09-2024 End: 30-03-3130Tnwqagl of Social functionNOMS HealthcareToMercy Health [facility] Comment on above:quit in 2009Tobacco smoking status [facility] Start: 07-09-2016 End: 67-03-5662YodWafvqy (finding)[facility] Goals DatePatient GoalDesired Activity/State Functional Status MpalBopqbdjyvpBkypmkGywphzui40-96-6665Vdrgknkblv StatusL[facility]01-17-2025Functional StatusN/AExec[facility] Clinical Notes 01-26-2024 to 12-05-2024 Note Date & NwafVugoNfzodhda67-12-5958 History of Present illness Narrative* John Mathews [...] Active Ambulatory Problems Diagnosis Date Noted A-fib ([facility]) 04/21/2022 Chest pain 07/27/2016 CKD (chronic kidney disease) stage 4, GFR 15-29 ml/min ([facility]) 01/26/2024 Clinical trial exam 04/23/2022 Dyspnea 07/27/2016 Edema 07/27/2016 Essential hypertension 01/25/2020 Fatigue 07/27/2016 Hyperkalemia 01/26/2024 Lightheadedness 07/27/2016 Lower abdominal pain 01/30/2022 Nonsustained paroxysmal ventricular tachycardia (HCC) 11/30/2022 Obstructive sleep apnea syndrome 10/02/2022 Other secondary pulmonary hypertension (HCC) 12/15/2022 Secondary hyperparathyroidism ([facility]) 01/26/2024 Spinal stenosis of lumbar region with neurogenic claudication 01/30/2022 Spondylosis of lumbosacral region without myelopathy or radiculopathy 01/30/2022 Symptomatic bradycardia 01/01/2023 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 VT (ventricular tachycardia) ([facility]) 04/29/2022 Aspirin long-term use 05/09/2024 CAD (coronary artery disease) 05/09/2024 Chronic obstructive pulmonary disease (HCC) 05/09/2024 Former smoker 05/09/2024 History of colon polyps 05/09/2024 History of tobacco abuse 05/09/2024 Hypercholesterolemia 05/09/2024 Hypothyroidism 05/09/2024 Kidney stones 05/09/2024 Morbid obesity ([facility]) 05/09/2024 Multiple pulmonary nodules 05/09/2024 Stage 3a chronic kidney disease ([facility]) 01/31/2024 Status post lumbar spine operation 05/09/2024 Stress incontinence, female 05/09/2024 Intrinsic sphincter deficiency (ISD) 09/11/2024 Body mass index (BMI) 45.0-49.9, adult ([facility]) 10/24/2024 Resolved Ambulatory Problems Diagnosis Date Noted [...] URI. Tube looks good. documented in this encounterLakeland Regional HospitalQhlpvbuqhe64-09-6156 NoteUT Cardiology Consult Note Reason for visit: [...] (chronic obstructive pulmonary disease) ([facility]/HCC) Hypertension Myocardial infarction ([facility]) Obstructive sleep apnea 10/02/2022 SOBIA=17.7 events/hour; Pranav SaO2=76%; Slgala=816.0 lbs; BMI=52.7 kg/m2, Home Sleep Apnea Testing on 09/25/2022 at [facility] PSH: Past Surgical History: Procedure Laterality Date CARDIAC CATHETERIZATION COLONOSCOP (more content not included)...[facility] 09-11-2024 History of Present illness Narrative* [...] Active Ambulatory Problems Diagnosis Date Noted A-fib ([facility]) 04/21/2022 Chest pain 07/27/2016 CKD (chronic kidney disease) stage 4, GFR 15-29 ml/min ([facility]) 01/26/2024 Clinical trial exam 04/23/2022 Dyspnea 07/27/2016 Edema 07/27/2016 Essential hypertension 01/25/2020 Fatigue 07/27/2016 Hyperkalemia 01/26/2024 Lightheadedness 07/27/2016 Lower abdominal pain 01/30/2022 Nonsustained paroxysmal ventricular tachycardia ([facility]) 11/30/2022 Obstructive sleep apnea syndrome 10/02/2022 Other secondary pulmonary hypertension ([facility]) 12/15/2022 Secondary hyperparathyroidism ([facility]) 01/26/2024 Spinal stenosis of lumbar region with neurogenic claudication 01/30/2022 Spondylosis of lumbosacral region without myelopathy or radiculopathy 01/30/2022 Symptomatic bradycardia 01/01/2023 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 VT (ventricular tachycardia) ([facility]) 04/29/2022 Aspirin long-term use 05/09/2024 CAD (coronary artery disease) 05/09/2024 Chronic obstructive pulmonary disease ([facility]) 05/09/2024 Former smoker 05/09/2024 History of colon polyps 05/09/2024 History of tobacco abuse 05/09/2024 Hypercholesterolemia 05/09/2024 Hypothyroidism 05/09/2024 Kidney stones 05/09/2024 Morbid obesity ([facility]) 05/09/2024 Multiple pulmonary nodules 05/09/2024 Stage 3a chronic kidney disease ([facility]) 01/31/2024 Status post lumbar spine operation 05/09/2024 [...] will resolve without tx documented in this encounterLakeland Regional HospitalKijomavbpx57-19-8406 NoteHistory: possible TIA Procedure: Multiplanar, multisequence imaging [...] consolidation right mastoid sinus Electronically signed: Estrada Raman.[facility] HospitalComment on above:Order Comment: Order in [id number] Hospital Discharge instructions Patient Education 08/21/2024 10:41:06 [...] nerve stimulation). ?For women, using a medical transcriber to prevent urine leaks. This is a [...] right after experiencing incontinence. General instructions Take yuby-wuw-ztamgil and prescription medicines only as told by [...] important. Where to find more information National [employer] of Diabetes and Digestive and Kidney Diseases: www.niddk.nih.gov [employer] [employer]: www.urologyhealth.org Contact a health care [...] provider. Document Revised: 10/04/2020 Document Reviewed: 10/04/2020 Vide[employer] Patient Education 2023 [employer]. Follow Up Care 07/14/2024 09:39:25 With:ROSETTA MENDEZ MD, SASKAI Address: When: Unknown [facility] 06-09-2025 NotePatient Education Urology Urinary Incontinence [...] stimulation). ? For women, using a medical transcriber to prevent urine leaks. This is a [...] your health care provider (more content not included)...[facility] 08-09-2024 History of Present illness Narrative* [...] Active Ambulatory Problems Diagnosis Date Noted A-fib ([facility]) 04/21/2022 Chest pain 07/27/2016 CKD (chronic kidney disease) stage 4, GFR 15-29 ml/min ([facility]) 01/26/2024 Clinical trial exam 04/23/2022 Dyspnea 07/27/2016 Edema 07/27/2016 Essential hypertension ([facility]) 01/25/2020 Fatigue 07/27/2016 Hyperkalemia 01/26/2024 Lightheadedness 07/27/2016 Lower abdominal pain 01/30/2022 Nonsustained paroxysmal ventricular tachycardia ([facility]) 11/30/2022 Obstructive sleep apnea syndrome 10/02/2022 Other secondary pulmonary hypertension 12/15/2022 Secondary hyperparathyroidism ([facility]) 01/26/2024 Spinal stenosis of lumbar region with neurogenic claudication 01/30/2022 Spondylosis of lumbosacral region without myelopathy or radiculopathy 01/30/2022 Symptomatic bradycardia 01/01/2023 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 VT (ventricular tachycardia) ([facility]) 04/29/2022 Aspirin long-term use 05/09/2024 CAD (coronary artery disease) ([facility]) 05/09/2024 Chronic obstructive pulmonary disease ([facility]) 05/09/2024 Former smoker 05/09/2024 History of colon polyps 05/09/2024 History of tobacco abuse 05/09/2024 Hypercholesterolemia ([facility]) 05/09/2024 Hypothyroidism ([facility]) 05/09/2024 Kidney stones 05/09/2024 Morbid obesity ([facility]) 05/09/2024 Multiple pulmonary nodules 05/09/2024 Stage 3a chronic kidney disease (HCC) ([facility]) 01/31/2024 Status post lumbar spine operation 05/09/2024 [...] for mild RT myringitis documented in this encounterLakeland Regional HospitalKiyujtcmeb25-09-5968 [place] [address] Colonoscopy Procedure Report Signed Patient: Vero Sadler MR#: [id number] : 1950 Acct:[id number] Age/Sex: 74 / F Adm Date: 5 Loc: Room: Type: [facility] Attending Dr: Kal Molina MD Copies [...] was slowly withdrawnwith the findings as below. [place] bowel prep score was good. Findings: Cecum: [...] Molina MD 07/19/24 1321 Signed By: 07/19/[address] [place], [place] 1757605-07-2025 [place] [address] Gastroenterology H&P Signed Patient: Vero Sadler MR#: [id number] : 1950 Acct:[id number] Age/Sex: 74 / F Adm Date: 5 Loc: Room: Type: [facility] Attending Dr: Kal Molina MD Copies [...] MD 07/19/24 1319 Signed By: 07/19/24 1320 [facility]05-03-2025 NoteProgress Note-Physician Patient: VERO SADLER Age: 74 years Sex: Female : 1950 Associated Diagnoses: None Author: Pedro Walden MD Postoperative Information Postoperative disposition: Postoperative disposition: To PACU. Optimetrix number: Optimetrix number [id number]. Anesthetic utilized: General. Health Status Allergies: Allergic Reactions (Selected) Severity Not Documented Adhesive Bandage- Hives. Physical Examination VS/Measurements Pain Assessment: Controlled. General: Awake, Appropriate. Respiratory: Adequate air exchange. Cardiovascular: Stable. Neurological Assessment Anesthetic outcome No anesthetic complications noted. Adequate pain relief. Review / Management Condition: Stable. Plan Transfer/Discharge: Transfer/Discharge Discharge when meets criteria ( To home ).[facility]:Result Comment: Electronically Signed By: Pedro Walden MD\.br\Date and Time Signed: 07/15/24 16:46 EDT 07-13-2024 Hospital Discharge instructions Patient Education 07/13/2024 10:40:08 Post Op Patient Instructions - FT (CUSTOM) Follow Up Care 05/19/2024 09:13:05 With:ROSETTA MENDEZ Address:Unknown When: Unknown Comments:1 month [facility] [id number] NotePatient Education - Text [facility]05-01-2025 Note Progress Note-Physician Patient: VERO SADLER [...] Problems Aspirin long-term use / SNOMED CT 8609890541 / Confirmed Atrial fibrillation / SNOMED CT 47109220 / Confirmed Bradycardia / SNOMED CT 68453297 / Confirmed CAD (coronary artery disease) / SNOMED CT 25071345 / Confirmed Chronic kidney disease due to hypertension.. / SNOMED CT 6221955287 / Confirmed Chronic kidney disease stage 3A. / SNOMED CT 8948143831 / Confirmed Chronic kidney disease stage 4 / SNOMED CT 2500813378 / Confirmed Chronic kidney disease, stage 3 / SNOMED CT 9340500706 / Confirmed Chronic obstructive pulmonary disease / SNOMED CT 63982736 / Confirmed Former smoker / SNOMED CT 25224706 / Confirmed History of colon polyps / SNOMED CT 0701361601 / Confirmed History of operative procedure on lumbar spinal structure / SNOMED CT 8131839844 / Confirmed History of tobacco abuse / SNOMED CT 3176978000 / Confirmed Hypercholesterolemia / SNOMED CT 87991648 / Confirmed Hyperkalemia / SNOMED CT 20494528 / Confirmed Hypertension / SNOMED CT 9762747469 / Confirmed Hypertensive disorder / SNOMED CT 9290673225 / Confirmed Hypothyroidism / SNOMED CT 34785550 / Confirmed Morbid obesity / SNOMED CT 045371191 / Confirmed Multiple pulmonary nodules / SNOMED CT 7958514538 / Confirmed Pulmonary hypertension / SNOMED CT 299224866 / Confirmed Spinal stenosis / SNOMED CT 167802285 / Confirmed Stress incontinence, female / SNOMED CT 619519077 / Confirmed Canceled: Kidney stones / SNOMED CT 421509347 pt denies, Active Problems (23) Aspirin long-term [...] selected or recorded. 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 Anesthetic Preoperative Plan: Anesthesia Monitored anethesia care.[facility] 04-15-2025 Evaluation note* Diagnosis Onset Date Resolution Status Admit Date Anemia of renal disease acuteApril 2024 10:58amCKD (chronic kidney disease) stage 4, GFR 15-29 ml/minacuteApril 2024 10:58amHyperkalemiaacuteApril 2024 10:58am HyperlipidemiaacuteApril 2024 10:58amHypertensive chronic kidney disease with stage 1 through stage 4 chronic kiacuteApril 2024 10:58am HyperuricemiaacuteApril 2024 10:58amHypomagnesemiaacuteApril 2024 10:58amSecondary hyperparathyroidismacuteApril 2024 10:58am [facility] Work Phone: [phone]) 235-669604-08-2025 History of Present illness Narrative* John Mathews [...] kidney disease) stage 4, GFR 15-29 ml/min ([facility]/HCC) 01/26/2024 Clinical trial exam 04/23/2022 [...] 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 VT (ventricular tachycardia) ([facility]) 04/29/2022 Aspirin long-term use 05/09/2024 CAD (coronary artery disease) (CMS/HCC) 05/09/2024 Chronic obstructive pulmonary disease ([facility]/HCC) 05/09/2024 Former smoker 05/09/2024 History of colon polyps 05/09/2024 History of tobacco abuse 05/09/2024 Hypercholesterolemia (CMS/HCC) 05/09/2024 Hypothyroidism (CMS/HCC) 05/09/2024 Kidney stones 05/09/2024 Morbid obesity ([facility]) 05/09/2024 Multiple pulmonary nodules 05/09/2024 Stage 3a chronic kidney disease (HCC) ([facility]) 01/31/2024 Status post lumbar spine operation 05/09/2024 [...] Hold ASA 10d preop documented in this encounterLakeland Regional HospitalTsikfczuqz83-47-5979 NotePatient Education Obstetrics and Gynecology Kegel Exercises [...] provider. Document Revised: 07/10/2021 Document Reviewed: 07/10/2021 [employer] Patient Education ? 2023 [employer].[facility] 05-09-2024 NoteUT Cardiology Consult Note [...] (chronic obstructive pulmonary disease) ([facility]) Hypertension Myocardial infarction ([facility]) Obstructive sleep apnea 10/02/2022 SOBIA=17.7 events/hour; Pranav SaO2=76%; Plkcdx=782.0 lbs; BMI=52.7 kg/m2, Home Sleep Apnea Testing on 09/25/2022 at [facility] PSH: Past Surgical History: Procedure Laterality Date CARDIAC CATHETERIZATION COLONOSCOPY 02/09/2023 EYE SURGERY CATARACT FOOT SURGERY Right tendon repair HYSTERECTOMY INSERT / REPLACE / REMOVE PACEMAKER 01/12/2023 OTHER SURGICAL HISTORY Bilateral 05/31/2023 S1 TFESI - 20% pain relief SH: Social Determinants of Health Tobacco Use: Low Risk (05/09/2024) Received from [facility] Healthcare Patient History Smoking Tobacco Use: Never [...] Transportation Needs (01/05/2023) Tr (more content not included)...[facility]02-25-2025 History of Present illness Narrative* John Mathews MD - 05/09/2024 8:40 AM EST Subjective Patient ID: Vero Sadler is a 74 y.o. female who presents for Ear Problem (Audio 05/04/24 [facility] ) Pt had the flu 4 weeks ago and now unable to hear on the RT. Also has RT LAMBERT. No tx yet per pt. 05/04audio shows moderate to severe right mixed HL with a flat tymp. Review of Systems All other systems reviewed and are negative. No family history on file. 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 VT (ventricular tachycardia) ([facility]) 04/29/2022 Aspirin long-term use 05/09/2024 CAD (coronary artery disease) ([facility]) 05/09/2024 Chronic obstructive pulmonary disease ([facility]) 05/09/2024 Former smoker 05/09/2024 History of colon polyps 05/09/2024 History of tobacco abuse 05/09/2024 Hypercholesterolemia ([facility]) 05/09/2024 Hypothyroidism ([facility]) 05/09/2024 Kidney stones 05/09/2024 Morbid obesity ([facility]) 05/09/2024 Multiple pulmonary nodules 05/09/2024 Stage 3a chronic kidney disease (HCC) ([facility]) 01/31/2024 Status post lumbar spine operation 05/09/2024 [...] possible cause of LAMBERT. documented in this encounterLakeland Regional HospitalKebpmgvbjh01-50-1398 Hospital Discharge instructions Follow Up Care 04/12/2024 08:02:27 With:BRYAN BELTRÁN, SASKIA SARGENT Address: When: Unknown [facility] 01-17-2025 Hospital Discharge instructions Patient Education [...] including vitamins, herbs, eye drops, creams, and vdty-ufr-ajikdds medicines. Any problems you or family members [...] provider tells you to take them. Taking eazp-gzv-xlxcglm medicines, vitamins, herbs, and supplements. Tests You [...] Follow these instructions at home: Medicines Take sggo-dyo-rfhqvlc and prescription medicines only as told by [...] provider. Document Revised: 11/12/2021 Document Reviewed: 10/11/2020 [employer] Patient Education 2023 [employer]. 03/31/2024 15:09:42 Injection Treatments for Urinary Incontinence [...] including vitamins, herbs, eye drops, creams, and plfr-mfk-bqabozq medicines. Any problems you or family members [...] provider tells you to take them. Taking qpnk-cfr-uclibzb medicines, vitamins, herbs, and supplements. General instructions [...] provider. Document Revised: 10/04/2020 Document Reviewed: 10/04/2020 [employer] Patient Education 2023 [employer]. 03/31/2024 15:09:34 Kegel Exercises Kegel Exercises Kegel [...] provider. Document Revised: 07/10/2021 Document Reviewed: 07/10/2021 [employer] Patient Education 2023 [employer]. Follow Up Care 02/22/2024 14:36:40 With:BRYAN BELTRÁN, ROSETTA, URL Address: When: Unknown [facility] 01-17-2025 NotePatient Education Obstetrics and Gynecology [...] provider. Document Revised: 07/10/2021 Document Reviewed: 07/10/2021 [employer]IL[employer] Patient Education ? 2023 [employer] Urology Cystoscopy Cystoscopy is a procedure [...] including vitamins, herbs, eye drops, creams, and tpsw-afb-tnroliz medicines. ??? Any problems you or family [...] tells you to take them. ??? Taking ctzy-uog-vlvepfl medicines, vitamins, herbs, and supplements. Tests You may have an exam or testing, such as: ??? X-rays of the bladder, urethra, or kidneys. ??? CT scan of the abdomen or pelvis. ??? Urine tests to check for signs of infection. General instructions ??? Follow instructions fr (more content not included)...[facility]11-13-2024 [facility] CLINIC Cardiology Clinic Note Chief Complaint: Patient is here today for follow up [facility] ED visit. She was having chest pressure, and was told in their opinion it was acid reflux . She was going to cancel this apt today but then started getting chest pressure again. BP has been anywhere from 130-199 systolic she says. HPI: Vero Salder is a 73 y.o. female History of [...] kidney disease, COPD (chronic obstructive pulmonary disease) ([facility]/HCC), Hypertension, Myocardial infarction ([facility]), and Obstructive sleep apnea (10/02/2022). Surgical History [...] Disp: 479 g, Rfl (more content not included)...[facility] No data available for this section [facility] Evaluation + Plan note Future Appointments Appointment Date:07/13/2024 09:00:00 AM Scheduled Provider: Location:[facility] Surgical Services Appointment Type:Surgery FT [facility] Evaluation + Plan note Future Appointments Appointment Date:02/20/2025 11:00:00 AM Scheduled Provider:ROSETTA MENDEZ MD Location:[facility] Appointment Type:URO Office Visit 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 documented in this encounter [facility] HealthcareEvaluation note* Diagnosis Onset Date Resolution Status Admit Date Anemia of renal disease acuteApril 2024 10:58amCKD (chronic kidney disease) stage 4, GFR 15-29 ml/minacuteApril 2024 10:58amHyperkalemiaacuteApril 2024 10:58am HyperlipidemiaacuteApril 2024 10:58amHypertensive chronic kidney disease with stage 1 through stage 4 chronic kiacuteApril 2024 10:58am HyperuricemiaacuteApril 2024 10:58amHypomagnesemiaacuteApril 2024 10:58amSecondary hyperparathyroidismacuteApril 2024 10:58am [facility] Work Phone: Evaluation note* Diagnosis ETD (Eustachian tube dysfunction), right- Primary CSF otorrhea Chronic myringitis of right ear documented in this encounter [facility] HealthcareEvaluation note* Diagnosis ETD (Eustachian tube dysfunction), right- Primary Chronic mastoiditis, right documented in this encounter [facility] HealthcareEvaluation note* Diagnosis Onset Date Resolution Status Admit Date Anemia of renal disease acuteJuly 2024 11:03amCKD (chronic kidney disease) stage 4, GFR 15-29 ml/minacuteJuly 2024 11:03amHyperkalemiaacuteJuly 2024 11:03am HyperlipidemiaacuteJuly 2024 11:03amHypertensive chronic kidney disease with stage 1 through stage 4 chronic kiacuteJuly 2024 11:03amHyperuricemia acuteJuly 2024 11:03amHypomagnesemiaacuteJuly 2024 11:03amSecondary hyperparathyroidismacuteJuly 2024 11:03am [facility] Work Phone: Evaluation note* Diagnosis Acute URI- Primary Acute upper respiratory infections of unspecified site ETD (Eustachian tube dysfunction), right documented in this encounter [facility] HealthcareEvaluation noteNo assessment information [facility] Work Phone: History and physical note Author Kal Molina [facility] InstituteNote Date/TimeMay 2024 1:20pmHeather [place] [phone] Gastroenterology H&P Signed Patient: Vero Sadler MR#: [id number] : 1950 Acct:[id number] Age/Sex: 74 / F Adm Date: 5 Loc: Room: Type: [facility] Attending Dr: Kal Molina MD Copies [...] M.D. Documented By: Kal Molina MD 07/19/24 1310 Signed By: <Electronically signed by Kal Molina MD> 07/19/24 1320 [facility] Work Phone: Hospital Discharge instructions No data available for this section [facility] Hospital Discharge instructionsAdditional Instructions DISCHARGE [...] NOT operate machinery such as power tools, [employer] mowers, [employer] blowers, sewing machines, etc. for 24 hours. [...] years. -Follow up with PCP. -Office number [phone]. [facility] Work Phone: Progress note No data available for this section [facility] Reason for referral (narrative)No reason for referral information availableMount [facility] Work Phone: Summary Purpose Family History [...] disease) stage 4, GFR 15-29 ml/min Hyperkalemia [id number] Secondary hyperparathyroidism Chronic kidney disease Chief Complaint [...] and content) DATE CREATED AUTHOR 09/08/2017 [facility] DATE CREATED AUTHOR AUTHOR'S ORGANIZ ATION 09/27/2020 [facility] DATE CREATED AUTHOR AUTHOR'S ORGANIZ ATION 07/24/2022 [facility] DATE CREATED AUTHOR AUTHOR'S ORGANIZ ATION 06/27/2024 [facility] DATE CREATED AUTHOR AUTHOR'S ORGANIZ ATION 09/13/2024 [facility] DATE CREATED AUTHOR AUTHOR'S ORGANIZ ATION 11/01/2024 [facility] DATE CREATED AUTHOR AUTHOR'S ORGANIZ ATION 11/15/2024 [facility] DATE CREATED AUTHOR AUTHOR'S ORGANIZ ATION 12/06/2024 [facility] DATE CREATED AUTHOR AUTHOR'S ORGANIZ ATION 01/25/2025 [facility] Care Teams (unrecognized sec tion and content) Team Status: Active Member Role Status Dates Debbie Bahtia MD Primary Care Provider Active Team Status: [...] MemberRelationshipSpecialtyStart DateEnd Date Debbie Bhatia MD [address] [place] [address] [facility]05/09/24Team MemberRelationshipSpecialtyStart DateEnd Date Debbie Bhatia MD [address] [place] [address] PCP - GeneralFamily Medicine05/09/24Team MemberRelationshipSpecialtyStart DateEnd Date Debbie Bhatia MD [address] [facility] [place] [address] PCP - GeneralFamily Medicine05/09/24Team MemberRelationshipSpecialtyStart DateEnd Date Debbie Bhatia MD [address] [facility] [place] [address] PCP - GeneralFamily Medicine05/09/24 Team Status: Active Member Role Status Dates Debbie Bhatia MD Primary Care Provider Active Start: July 19, 2024 Imad Tracy , MDAttending Provider, Other ProviderActiveStart: July 19, 2024 Team MemberRelationshipSpecialtyStart DateEnd Date Debbie Bhatia MD [address] [facility] [place] [address] PCP - GeneralFamily Medicine08/02/24Team MemberRelationshipSpecialtyStart DateEnd Date Debbie Bhatia MD [address] [facility] [place] [address] PCP - GeneralFamily Medicine08/02/24Team MemberRelationshipSpecialtyStart DateEnd Date Debbie Bhatia MD [address] [facility] [place] [address] PCP - GeneralFamily Medicine08/02/24Team MemberRelationshipSpecialtyStart DateEnd Date Debbie Bhatia MD [address] [facility] [place] [address] PCP - GeneralFamily Medicine08/02/24Team MemberRelationshipSpecialtyStart DateEnd Date Debbie Bhatia MD [address] [place] [address] PCP - [facility]08/02/24 Team Status: Inactive Member Role Status Dates Debbie Bhatia MD Primary Care Provider Active Start: October 05, 2024 End: October 05bdRebecca Huerta ProviderActiveStart: October 05, 2024 End: October 05, 2024Team MemberRelationshipSpecialtyStart DateEnd Date Debbie Bhatia MD [address] [place] [phone] PCP - [facility]08/02/24 Team Status: [...] BE BASED ON THE PRIMARY CLINICAL RECORDS. [facility]. provides no warranty or guarantee of the accuracy or completeness of information in this document.
== END 2025-02-23 07:30 | disposition home or self-care (01) ==
LOC: NM 07:29
PROVIDERS: PCP Family Medicine; Visit Provider Internal Medicine Interventional Cardiology
DX: R06.09 Other forms of dyspnea (principal); R93.1 Abnormal findings on diagnostic imaging of heart and coronary circulation; I25.10 Atherosclerotic heart disease of native coronary artery without angina pectoris
CPT/HCPCS: 78452; A9500

== ENCOUNTER 2025-02-26 08:44 | Outpatient (OUT) | payer MEDICARE, SELFPAY ==
--- NOTE | 2025-02-26 09:45 | PC.NURSE ---
Nursing Note Cardiac Stress Test Reviewed: Medication, allergies and patient history reviewed. Stress Test: [x ]? Patient tolerated stress test well. [ ]? Patient unable to tolerate walking on treadmill. Switched to Lexiscan stress test. [ ]? No chest pain noted per patient [x ]? Chest pain that resolved prior to leaving stress lab. [ ]? No dyspnea noted. [x ]? Dyspnea that resolved prior to leaving stress lab. [x ]? Patient left stress lab asymptomatic and hemodynamically stable. [ ]? Patient taken to the Emergency Room due to non-resolving symptoms following stress test. [ ]? Patient achieved target heart rate. [ ]? Patient unable to achieve target heart rate. [ ]? Aminophylline administered as reversal agent to Lexiscan (Regadenoson). [ ]? Nitro administered. Nursing Comments: Patient c/o chest pain, SOB and lightheaded after injection. 4 minutes into test, symptoms subsided. Patient only complaint of headache when leaving stress lab.
[2025-02-26] MEDS: REGADENOSON 0.4 MG/5 ML SYRINGE IV (09:47)
--- NOTE | 2025-02-26 18:01 | PM.STRESS ---
Stress Test Stress Test Allergies Allergy/AdvReac Type Severity Reaction Status Date / Time Penicillins Allergy Intermediate yeast Verified 02/12/25 07:03 infection latex Allergy Unknown Rash Verified 02/12/25 07:03 fluticasone (From Flonase) Allergy Migraine Verified 02/12/25 07:03 Requesting physician: Tato Salcido Procedure: Lexiscan nuclear stress test General Information: Reason for Stress Test: [Dyspnea on exertion, abnormal echo] Cardiac History and Risk Factors: [History of CAD, hypertension, nonsustained V. tach] Resting 12 - Lead Electrocardiogram: Resting twelve-lead EKG showed normal sinus rhythm, heart rate 76 bpm, normal EKG. Resting blood pressure 193/88 mmHg. Lexiscan 0.4 mg was administered intravenously and the patient was monitored for few minutes. Patient complained of chest pain, shortness of breath, headache, lightheadedness which all subsided after 4 minutes. Peak heart rate 83 bpm which represents 56% of age predicted maximum heart rate and peak blood pressure 193/88 mmHg. EKGs throughout the test did not show any significant T or ST changes or any arrhythmias Stress Test: Protocol: [Lexiscan] Exercise Capacity: [Not assessed] Blood Pressure Response: [Normal] Rhythm: [No arrhythmia] ST - Response: [No ST changes] Patient Response: [Chest pain, shortness of breath, headache, and lightheadedness] Interpretation: Negative Lexiscan EKG stress test for ischemia The nuclear myocardial perfusion images result is reported separately Jammie Chong MD, FACC
== END 2025-02-26 08:45 | disposition home or self-care (01) ==
LOC: CARD 08:44
PROVIDERS: PCP Family Medicine; Visit Provider Internal Medicine Interventional Cardiology
DX: R06.09 Other forms of dyspnea (principal); R93.1 Abnormal findings on diagnostic imaging of heart and coronary circulation; I25.10 Atherosclerotic heart disease of native coronary artery without angina pectoris
CPT/HCPCS: 93017; J2785

== ENCOUNTER 2025-02-26 13:21 | Outpatient (OUT) | payer MEDICARE, SELFPAY ==
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
== END 2025-02-26 13:22 | disposition home or self-care (01) ==
LOC: PM 13:21
PROVIDERS: PCP Family Medicine; Visit Provider Nurse Practitioner
DX: M48.062 Spinal stenosis, lumbar region with neurogenic claudication (principal); M47.816 Spondylosis without myelopathy or radiculopathy, lumbar region; R06.9 Unspecified abnormalities of breathing; R93.1 Abnormal findings on diagnostic imaging of heart and coronary circulation; I25.10 Atherosclerotic heart disease of native coronary artery without angina pectoris
CPT/HCPCS: 93017; G0463; J2785